=== PATIENT | female | born 1940 | race Caucasian/White ===

== ENCOUNTER 2016-10-18 10:33 | Inpatient (IN) | payer MEDICARE, OTHER ==
[~2016-10-18] VITALS: Ht 152.4 cm; Wt 71.7 kg
[~2016-10-18 10:33] MED LIST: ALB0.5V; ALBU2.5V4 NEB; AMOX500C2 PO; ASP81TEC PO; ATOR10TA66 PO; ATOR80TA PO; ATOR80TA75 PO; ATR20T PO; BUDE10.2 IH; BUDE6HFA IH; CLOP75TA PO; CLOP75TA28 PO; DICL100G20 TOP; DIGO125T PO; DIGO250T PO; DIGO250T15 PO; DRON400T2 PO; FLUT50DI; GLIP5TAB13 PO; LEVO88TA2 PO; LEVO88TA26 PO; MECL25TA56 PO; METF500T4 PO; METF500T8 PO; MMT17NA NS; MONT10TA24 PO; MTF500T PO; MULT-974 PO; OMG1KC PO; PNT40TEC PO; RNT150T PO; SCR1T1 PO; SULF1TAB38 PO; TICA90TA PO; TRAM1TAB7 PO; VIT B COMP PO
[2016-10-18 11:00] VITALS: BP 127/68
[2016-10-18] MEDS: RT-LEVALBUTEROL (XOPENEX) 1.25 MG/3 ML NEB NON-FORMULARY INH SCH ×4 (11:17→22:07)
[2016-10-18] MEDS ORDERED: CATHETER FLUSH 10 ML SYR IV PRN (11:30)
[2016-10-18] MEDS ORDERED: ONDANSETRON 4 MG/2 ML (SDV) Z0FRAN IV PRN (11:30)
[2016-10-18] MEDS: NS IV 1000 ML 1,000 ML IV SCH (11:44)
[2016-10-18] MEDS: SUCRALFATE 1 GM (CARAFATE) TAB PO SCH ×3 (11:44→20:37)
[2016-10-18] MEDS: PANTOPRAZOLE 40 MG/10 ML (PROTONIX) VIAL IV SCH ×2 (11:44→20:37)
[2016-10-18] MEDS: LORazepam INJ 2 MG/ML (ATIVAN) VIAL IV SCH ×2 (11:45→19:52)
[2016-10-18 11:55] LABS: BASOPHILS # (AUTO) 0.1 10^3/uL (0.0-0.1); BASOPHILS % (AUTO) 1 % (0-10); EOSINOPHILS # (AUTO) 0.2 10^3/uL (0.0-0.3); EOSINOPHILS % (AUTO) 1 % (0-10); LYMPHOCYTES # (AUTO) 1.6 X 10^3 (1.0-4.0); LYMPHOCYTES % (AUTO) 16 % (12-44); MEAN CORPUSCULAR HEMOGLOBIN 27 PG (25-34); MEAN CORPUSCULAR HGB CONC 32 G/DL (32-36); MEAN CORPUSCULAR VOLUME 83 FL (80-99); MEAN PLATELET VOLUME 10.3 FL (7.4-10.4); MONOCYTES % (AUTO) 9 % (0-12); NEUTROPHILS # (AUTO) 7.7 X 10^3 (1.8-7.8); NEUTROPHILS % (AUTO) 74 % (42-75); PLATELET COUNT 327 10^3/uL (130-400); RED BLOOD COUNT 5.31 10^6/uL (4.35-5.85); RED CELL DISTRIBUTION WIDTH 16.2 % (10.0-14.5); WHITE BLOOD COUNT 10.5 10^3/uL (4.3-11.0)
[2016-10-18] MEDS ORDERED: methylPREDNISolone 125 MG (Solu-MEDROL) VIAL IVP SCH (12:10)
[2016-10-18 12:15] LABS: ALANINE AMINOTRANSFERASE 18 U/L (0-55); ALBUMIN 3.9 G/DL (3.2-4.5); ANION GAP 10 MMOL/L (5-14); ASPARTATE AMINO TRANSFERASE 18 U/L (5-34); BILIRUBIN,TOTAL 0.6 MG/DL (0.1-1.0); BLOOD UREA NITROGEN 15 MG/DL (7-18); BUN/CREATININE RATIO 21; CALCIUM 9.4 MG/DL (8.5-10.1); CARBON DIOXIDE 28 MMOL/L (21-32); CHLORIDE 103 MMOL/L (98-107); CREATININE SERUM 0.71 MG/DL (0.60-1.30); GFR ESTIMATED > 60; GLUCOSE 164 MG/DL (70-105); POTASSIUM 4.1 MMOL/L (3.6-5.0); SODIUM 141 MMOL/L (135-145); TOTAL PROTEIN 6.6 G/DL (6.4-8.2)
[2016-10-18] MEDS ORDERED: SITA1TBM7 PO (12:21)
[2016-10-18 12:34] LABS: THYROID STIMULATING HORMONE 0.84 UIU/ML (0.35-4.94)
[2016-10-18] MEDS ORDERED: RT-ALBUINH INH (12:40)
[2016-10-18] MEDS ORDERED: FLUT1AER INH (12:40)
[2016-10-18] MEDS ORDERED: OMG1KC PO (12:40)
--- NOTE | 2016-10-18 12:46 | Diagnostic Imaging Report ---
INDICATION: Shortness of air. COMPARISON: 10/19/2015 FINDINGS: Frontal and lateral views of the chest demonstrate normal heart size and pulmonary vascularity. The lungs are clear. There are no signs of infiltrate, pleural effusions or pneumothoraces. The visualized osseous structures show no acute abnormalities. IMPRESSION: 1. No acute process. No signs of infiltrates, effusions or pneumothoraces. Dictated by: Dictated on workstation # [id number]
[2016-10-18] MEDS ORDERED: MONTELUKAST 10 MG (SINGULAIR) TAB PO PRN (13:30)
[2016-10-18 16:35] VITALS: BP 126/61
[2016-10-18 17:28] VITALS: BP 130/66
--- NOTE | 2016-10-18 17:39 | History & Physicial ---
History of Present Illness History of Present Illness Reason for visit/HPI PT IS A 76 Y/O FEMALE WHO IS WELL KNOWN TO ME FROM CLINIC. SHE WAS ADMITTED TO THE HOSPITAL FROM MY CLINIC A DIRECT ADMISSION. SHE WAS AN ACUTE WORK-IN APPT TODAY WITH COMPLAINT OF ABDOMINAL PAIN, SHORTNESS OF BREATH, AND FEELING LIKE SHE WAS JUST NOT GOING TO BE ABLE TO "KEEP GOING" AND FEELING LIKE SHE WAS JUST GOING TO BE SENT HOME TO . SHE WAS WALKED TO THE RESTROOM AND SHE HAD TO STOP EVERY 10 FEET TO REST BECAUSE SHE WAS NOT ABLE TO CATCH HER BREATH - SHE HAD AN OXYGEN SATURATION CHECKED ON THE WAY BACK TO HER EXAM ROOM AND HER OXYGEN WAS 98% ON ROOM AIR. ON EXAM HERE IN THE HOSPITAL, SHE WAS MORE RELAXED, BUT NOW COMPLAINING OF MORE PAIN IN HER EPIGASTRIUM. Date of Admission Oct 18, 2016 at 10:55 I consulted on this patient on 10/18/16 17:33 Attending Physician Clarice Elaine MD Admitting Physician Clarice Elaine MD Consult SHINE DENIS MD Allergies and Home Medications Allergies Coded Allergies: azithromycin (Verified Allergy, Unknown, 06/23/12) cephalexin (Verified Allergy, Unknown, 04/23/06) levofloxacin (Verified Allergy, Unknown, 06/23/12) meloxicam (Verified Allergy, Unknown, 06/23/12) metoprolol (Verified Allergy, Unknown, NECK SPASMS, 10/18/16) metronidazole (Verified Allergy, Unknown, 06/23/12) morphine (Verified Allergy, Unknown, 04/23/06) theophylline (Verified Allergy, Unknown, 04/23/06) prednisone (Verified Adverse Reaction, Intermediate, STOMACH BLEED, ) norfloxacin (Verified Adverse Reaction, Unknown, GI INTOLERANCE, 09/11/07) trovafloxacin (Verified Adverse Reaction, Unknown, GI INTOLERANCE, 09/11/07) Home Medications Albuterol Sulfate 2.5 Mg/3 Ml Vial.neb, 2.5 MG NEB QID PRN for SHORTNESS OF BREATH, (Reported) Albuterol Sulfate 1 Puff Puff, 2 PUFF INH Q4H PRN for SHORTNESS OF BREATH, ( Reported) Budesonide/Formoterol Fumarate 10.2 Gm Hfa.aer.ad, 2 PUFF IH BID, (Reported) EITHER USES BREO OR SYMBICROT, DOES NOT USE THEM TOGETHER Clopidogrel Bisulfate 75 Mg Tablet, 75 MG PO DAILY, (Reported) Digoxin 250 Mcg Tablet, 250 MCG PO HS, (Reported) Fluticasone/Vilanterol 1 Each Blst.w.dev, 1 PUFF INH DAILY, (Reported) USES EITHER BREO OR SYMBICORT, DOES NOT USE THEM TOGETHER Glipizide 5 Mg Tablet, 2.5 MG PO BID, (Reported) TAKES 1/2 OF A (5 MG) TABLET Levothyroxine Sodium 88 Mcg Tablet, 88 MCG PO DAILY, (Reported) Montelukast Sodium 10 Mg Tablet, 10 MG PO HS PRN for ALLERGIES/ASTHMA, (Reported ) Multivitamin 1 Each Tablet, 1 TAB PO DAILY, (Reported) Dalton 3 Polyunsat Fatty Acids 1,000 Mg Cap, 2,000 MG PO DAILY, (Reported) TAKES 2 (1,000MG) CAPSULES Sitagliptin Phos/Metformin HCl 1 Each Tbmp.24hr, 1 TAB PO DAILY, (Reported) [Liq Vit B Comp] , 1 APPFUL PO DAILY, (Reported) Past Mdwsfhc-Ndvxvy-Dvzdrj Hx Patient Social History Marrital Status: Living Status: LIVES AT HOME WITH SPOUSE Employed/Student: retired Alcohol Use: Denies Use Recreational Drug Use: No Smoking Status: Never a Smoker 2nd Hand Smoke Exposure: No Physical Abuse Screen: No Sexual Abuse: No Recent Foreign Travel: No Contact w/other who traveled: No Recent Hopitalizations: Yes Recent Infectious Disease Expo: No Immunizations Up To Date Date of Pneumonia Vaccine: Mar 14, 2011 Date of Influenza Vaccine: Mar 09, 2015 Seasonal Allergies Seasonal Allergies: Yes Surgeries HX Surgeries: Yes (R Thyroidectomy, Carpal Tunnel, heart stent) Surgeries: Coronary Stent, Orthopedic, Thyroidectomy Respiratory Hx Respiratory Disorders: Yes (asthma) Respiratory Disorders: Asthma Cardiovascular Hx Cardiovascular Disorders: Yes (stents x 3, implanted heart monitor) Cardiac Disorders: Coronary Artery Disease, Deep Vein Thrombosis, High Cholesterol, Hypertension Neurological Hx Neurological Disorders: No Reproductive System : No Hx Reproductive Disorders: No Sexually Transmitted Disease: No HIV/AIDS: No Female Reproductive Disorders: Denies Genitourinary Hx Genitourinary Disorders: No Gastrointestinal Hx Gastrointestinal Disorders: Yes (stomach bleeds) Gastrointestinal Disorders: Gastroesophageal Reflux, Gastrointestinal Bleed, Chronic Diarrhea, Gall Bladder Disease Musculoskeletal Hx Musculoskeletal Disorders: Yes Musculoskeletal Disorders: Arthritis, Rheumatoid Arthritis Endocrine Hx Endocrine Disorders: Yes (right thyroidectomy) Endocrine Disorders: Diabetes, Non-Insulin dep HEENT HX ENT Disorders: Yes HEENT Disorders: Cataract Loss of Vision: Denies Hearing Impairment: Denies Cancer Hx Cancer: No Psychosocial Hx Psychiatric Problems: No Integumentary HX Skin/Integumentary Disorder: No Blood Transfusions Hx Blood Disorders: Yes Adverse Reaction to a Blood Tr: No Reviewed Nursing Assessment Reviewed/Agree w Nursing PMH: Yes Family Medical History Significant Family History: Heart Disease, Hypertension Family Hx: Patient reports no known family medical history. Constitutional: No chills, No fever, malaise, weakness EENTM: throat pain, No hoarseness, No throat swelling Respiratory: cough, dyspnea on exertion, No hemoptysis, orthopnea, No phlegm, short of breath, No stridor, No wheezing Cardiovascular: chest pain (LOWER STERNAL/EPIGASTRIC REGION) Gastrointestinal: abdominal pain (EPIGASTRIUM), No constipation, No diarrhea, No dysphagia, heartburn, No melena, nausea, No vomiting Genitourinary: no symptoms reported : No Musculoskeletal: No back pain, No joint pain, No muscle pain Skin: no symptoms reported, No change in color, No lesions, No rash Psychiatric/Neurological: Anxiety (PT REFUSES TO TAKE ANXIETY MEDICATIONS), Weakness All Other Systems Reviewed Negative Unless Noted: Yes Physical Exam Vital Signs Vital Sign - Last 12Hours 10/18/16 11:00 Temp 98.3 Pulse 69 Resp 22 B/P (MAP) 127/68 Pulse Ox 96 O2 Delivery Room Air Capillary Refill : General Appearance: WD/WN, Mild Distress Eyes: Bilateral Eye EOMI, Bilateral Eye Normal Inspection, Bilateral Eye PERRL HEENT: PERRL/EOMI, Pharynx Normal Neck: Full Range of Motion, Supple Respiratory: Chest Non Tender, Lungs Clear, Normal Breath Sounds, No Accessory Muscle Use, No Respiratory Distress Cardiovascular: Regular Rate, Rhythm, No Edema, Normal Peripheral Pulses Gastrointestinal: Normal Bowel Sounds, No Organomegaly, No Pulsatile Mass, Soft , Tenderness (IN EPIGASTRIUM) Rectal: Deferred Back: No CVA Tenderness Extremity: Normal Capillary Refill, Normal Range of Motion, Non Tender, No Calf Tenderness, No Pedal Edema Neurologic/Psychiatric: Alert, Oriented x3, No Motor/Sensory Deficits, Normal Mood/Affect Skin: Normal Color, Warm/Dry Lymphatic: No Adenopathy Assessment/Plan Assessment and Plan ACUTE DYSPNEA ACUTE ABDOMINAL PAIN IN EPIGASTRIUM HYPERTENSION DIABETES MELLITUS ANXIETY PT ADMITTED TO THE HOSPITAL, STARTED ON STEROID IV, XOPENEX BREATHING TREATMENTS , ATIVAN IV AND LABS DRAWN. LABS ARE NEGATIVE FOR AN ACUTE GI BLEED WITH NORMAL HEMOGLOBIN, WILL CHECK OCCULT STOOLS. ACUTE ABDOMINAL PAIN - HX OF MASSIVE GI BLEED (WILL NOT START ON LOVENOX, BUT WILL PLACE ON SCD'S) - CONSULT PLACED TO DR. DENIS, MONITOR SYMPTOMS, PROTONIX AND CARAFATE INITIATED. MONITOR SYMPTOMS CLOSELY, IF NEEDED WILL CHECK H AND H ACUTELY TONIGHT. HTN - CONTROLLED - NO CHANGE IN MEDICATION AT THIS TIME. AFIB - ON BETA DIONNA - MONITOR HEART RATE, SYMPTOMS CURRENTLY CONTROLLED, LINX DEVICE IN PLACE. - DR. DSOUZA MONITORS. DM - RESTART JANUMET. CHECK FSBS AND ADJUST MEDS NEEDED. ANXIETY - CHRONIC - PT REFUSES TO TAKE MEDICATIONS FOR CONTROL OF SYMPTOMS - CONTINUE WITH ATIVAN IV FOR SYMPTOM CONTROL. Problems: Admission Diagnosis ACUTE DYSPNEA ACUTE ABDOMINAL PAIN IN EPIGASTRIUM HYPERTENSION DIABETES MELLITUS ANXIETY HX OF MASSIVE GI BLEED Clinical Quality Measures DVT/VTE Risk/Contraindication: Risk Factor Score Per Nursin RFS Level Per Nursing on Admit: 4+=Very High Contraindications-Pharm: Other *list below* Contraindications-Mechi: Other *list below* Other: HX OF MASSIVE GI BLEED WITH 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S - PT REFUSES INJECTION CLARICE ELAINE MD Oct 18, 2016 17:39
[2016-10-18] MEDS: RT-ADVAIR HFA 115/21 MCG PER PUFF IH SCH (18:46)
[2016-10-18] MEDS: methylPREDNISolone 125 MG (Solu-MEDROL) VIAL IVP SCH ×2 (18:52→23:17)
[2016-10-18 20:16] VITALS: BP 131/62
[2016-10-18] MEDS: DIGOXIN 0.25 MG (LANOXIN) TAB PO SCH (20:37)
[2016-10-18] MEDS ORDERED: RT-SYMBICORT 160/4.5 MCG INHALER PER PUFF IH SCH (21:00)
[2016-10-19 00:22] VITALS: BP 125/58
[2016-10-19] MEDS: NS IV 1000 ML 1,000 ML IV SCH ×3 (00:50→15:50)
[2016-10-19] MEDS: RT-LEVALBUTEROL (XOPENEX) 1.25 MG/3 ML NEB NON-FORMULARY INH SCH ×5 (02:53→19:27)
[2016-10-19] MEDS: LORazepam INJ 2 MG/ML (ATIVAN) VIAL IV SCH ×3 (03:14→19:20)
[2016-10-19 03:58] VITALS: BP 109/55
[2016-10-19] MEDS: methylPREDNISolone 125 MG (Solu-MEDROL) VIAL IVP SCH ×4 (05:26→23:54)
[2016-10-19] MEDS: SUCRALFATE 1 GM (CARAFATE) TAB PO SCH ×4 (05:30→20:46)
[2016-10-19] MEDS: LEVOTHYROXINE 88 MCG (LEVOTHORID) TAB PO SCH (05:30)
[2016-10-19 06:19] LABS: MEAN PLATELET VOLUME 10.7 FL (7.4-10.4); RED BLOOD COUNT 4.75 10^6/uL (4.35-5.85); RED CELL DISTRIBUTION WIDTH 16.2 % (10.0-14.5); WHITE BLOOD COUNT 7.1 10^3/uL (4.3-11.0)
[2016-10-19] MEDS: metFORMIN XR 500 MG (GLUCOPHAGE XR) TAB PO SCH (06:21)
[2016-10-19] MEDS: sitaGLIPtin 50 MG (JANUVIA) TAB PO SCH (06:21)
[2016-10-19 06:43] LABS: ALANINE AMINOTRANSFERASE 15 U/L (0-55); ALBUMIN 3.6 G/DL (3.2-4.5); ANION GAP 12 MMOL/L (5-14); ASPARTATE AMINO TRANSFERASE 10 U/L (5-34); BILIRUBIN,TOTAL 0.4 MG/DL (0.1-1.0); BLOOD UREA NITROGEN 16 MG/DL (7-18); BUN/CREATININE RATIO 20; CALCIUM 8.6 MG/DL (8.5-10.1); CARBON DIOXIDE 21 MMOL/L (21-32); CHLORIDE 107 MMOL/L (98-107); CREATININE SERUM 0.82 MG/DL (0.60-1.30); GFR ESTIMATED > 60; GLUCOSE 376 MG/DL (70-105); POTASSIUM 4.1 MMOL/L (3.6-5.0); SODIUM 140 MMOL/L (135-145)
[2016-10-19] MEDS: RT-ADVAIR HFA 115/21 MCG PER PUFF IH SCH ×2 (06:43→19:27)
[2016-10-19 08:00] VITALS: BP 134/61
[2016-10-19] MEDS: PANTOPRAZOLE 40 MG/10 ML (PROTONIX) VIAL IV SCH ×2 (08:58→20:46)
[2016-10-19] MEDS: CLOPIDOGREL 75 MG (PLAVIX) TABLET PO SCH (09:00)
--- NOTE | 2016-10-19 09:33 | Progress Note (SOAP) ---
Objective Exam Vital Signs Date Time Temp Pulse Resp B/P (MAP) Pulse Ox O2 Delivery O2 Flow Rate FiO2 10/19/16 08:00 96.7 74 24 134/61 96 Room Air 10/19/16 06:43 93 10/19/16 06:42 93 10/19/16 03:58 98.2 69 12 109/55 95 Room Air 10/19/16 02:53 94 10/19/16 01:00 76 10/19/16 00:22 97.0 77 18 125/58 96 Room Air 10/18/16 22:08 96 10/18/16 21:00 Room Air 10/18/16 20:16 97.0 67 22 131/62 95 Room Air 10/18/16 19:00 63 10/18/16 18:55 95 10/18/16 18:47 94 10/18/16 17:28 97.3 67 20 130/66 95 Room Air 10/18/16 16:35 98.0 76 24 126/61 94 Room Air 10/18/16 15:17 94 10/18/16 12:51 63 10/18/16 11:00 98.3 69 22 127/68 96 Room Air I & O 10/19/16 07:00 Intake Total 1730 ml Output Total 750 ml Balance 980 ml Capillary Refill : Results Lab Laboratory Tests 10/18/16 11:45: White Blood Count 10.5, Red Blood Count 5.31, Hemoglobin 14.1, Hematocrit 44, Mean Corpuscular Volume 83, Mean Corpuscular Hemoglobin 27, Mean Corpuscular Hemoglobin Concent 32, Red Cell Distribution Width 16.2H, Platelet Count 327, Mean Platelet Volume 10.3, Neutrophils (%) (Auto) 74, Lymphocytes (%) (Auto) 16 , Monocytes (%) (Auto) 9, Eosinophils (%) (Auto) 1, Basophils (%) (Auto) 1, Neutrophils # (Auto) 7.7, Lymphocytes # (Auto) 1.6, Monocytes # (Auto) 1.0, Eosinophils # (Auto) 0.2, Basophils # (Auto) 0.1, Sodium Level 141, Potassium Level 4.1, Chloride Level 103, Carbon Dioxide Level 28, Anion Gap 10, Blood Urea Nitrogen 15, Creatinine 0.71, Estimat Glomerular Filtration Rate > 60, BUN/ Creatinine Ratio 21, Glucose Level 164H, Calcium Level 9.4, Total Bilirubin 0.6 , Aspartate Amino Transf (AST/SGOT) 18, Alanine Aminotransferase (ALT/SGPT) 18, Alkaline Phosphatase 71, Troponin I < 0.30, Total Protein 6.6, Albumin 3.9, Thyroid Stimulating Hormone (TSH) 0.84, Digoxin Level 1.12 10/18/16 17:11: Troponin I < 0.30 10/19/16 04:54: White Blood Count 7.1, Red Blood Count 4.75, Hemoglobin 12.8, Hematocrit 40, Mean Corpuscular Volume 84, Mean Corpuscular Hemoglobin 27, Mean Corpuscular Hemoglobin Concent 32, Red Cell Distribution Width 16.2H, Platelet Count 292, Mean Platelet Volume 10.7H, Sodium Level 140, Potassium Level 4.1, Chloride Level 107, Carbon Dioxide Level 21, Anion Gap 12, Blood Urea Nitrogen 16, Creatinine 0.82, Estimat Glomerular Filtration Rate > 60, BUN/Creatinine Ratio 20, Glucose Level 376H, Calcium Level 8.6, Total Bilirubin 0.4, Aspartate Amino Transf (AST/SGOT) 10, Alanine Aminotransferase (ALT/SGPT) 15, Alkaline Phosphatase 62, Total Protein 6.0L, Albumin 3.6 Clinical Quality Measures DVT/VTE Risk/Contraindication: Risk Factor Score Per Nursin RFS Level Per Nursing on Admit: 4+=Very High Contraindications-Pharm: Other *list below* Contraindications-Mechi: Other *list below* Other: HX OF MASSIVE GI BLEED WITH 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S - PT REFUSES INJECTION JUAN FRANCISCO VEGA MD Oct 19, 2016 09:33
--- NOTE | 2016-10-19 09:52 | CONSULTATION REPORT ---
DATE OF ADMISSION: 10/18/2016 DATE OF CONSULTATION: 10/18/2016 ATTENDING PHYSICIAN: Dr. Elaine Ms. Thalia Tadeo is a 76-year-old female known to us. We had seen her for epigastric pain, as well as dark tarry stools in September of 2011. Before this, she had undergone a cardiac catheterization, as well as a stent placement and was placed on Plavix. An EGD was performed, which did show reflux esophagitis, class B, small hiatal hernia, approximately 2 cm in size, as well as mild gastritis. There were no formal ulcers, polyps or any active bleeding sources identified. She was then treated medically. Over time, she states that she has had some intermittent episodes of symptoms related to peptic ulcer disease, as well as gastroesophageal reflux disease. In the past year she reports that the reflux symptoms have worsened and she also has had episodes of regurgitation usually at night and that this would also lead to chronic cough. She also has a history of asthma and these episodes would exacerbate her asthma as well. She states that she has crampy substernal chest pressure as well as epigastric pain which may linger for a certain amount of time and then resolve on its own. She does report some mild nausea, however, no vomiting as well as no coffee-ground emesis. She states that her last colonoscopy was approximately 12 years ago, but she feels that that was normal. She does not report any lower gastrointestinal symptoms at this time. She also does have a history of atrial fibrillation and is currently on Plavix. PAST MEDICAL HISTORY: 1. Asthma. 2. Arthritis. 3. Allergic rhinitis. 4. Diabetes. 5. Coronary artery disease. 6. Hypothyroid. 7. History of DVT and pulmonary embolism/ 8. Degenerative joint disease. PAST SURGERIES: 1. Open hysterectomy in 1975. 2. Right carpal tunnel release 1978. 3. Open cholecystectomy 1984. 4. Nasal sinus polyp removal 1987. 5. Right foot surgery 1991. 6. Right total thyroidectomy 2006. 7. Left total knee arthroplasty 2007. 8. Cardiac catheterization and stent placement 2011. ALLERGIES: 1. THEOPHYLLINE. 2. PREDNISONE. 3. NORFLOXACIN. 4. CEPHALEXIN. 5. TROVAN. 6. LEVAQUIN. 7. METRONIDAZOLE. 8. MELOXICAM. 9. MORPHINE. 10. AZITHROMYCIN. MEDICATIONS: 1. Albuterol breathing treatments p.r.n. 2. Albuterol MDI 1 puff q.4 hours p.r.n. 3. Symbicort 160/4.5 mcg b.i.d. 4. Plavix 75 mg daily. 5. Digoxin 250 mcg daily. 6. Breo Ellipta 100/125 mcg daily. 7. Glipizide 5 mg daily. 8. Levothyroxine 88 mcg daily. 9. Montelukast 10 mg daily. 10. Rindge-3 fatty acid 1000 mg daily. 11. Janumet 100/1000 milligrams daily. SOCIAL HISTORY: Negative smoke. Negative alcohol. FAMILY HISTORY: Son with esophageal dysmotility. VITAL SIGNS: Temperature 97, blood pressure 131/92, pulse 67, respirations 22, pulse oximetry 95% on room air. REVIEW OF SYSTEMS: This is a well-nourished female currently in no acute distress. She is not experiencing any shortness of breath or difficulty breathing. No chest pain, palpitations, diaphoresis. Intermittent episodes of epigastric, crampy pain with radiation towards the back with associated nausea. No vomiting. She also has regurgitation at night, which induces a cough. No diarrhea, constipation. No red blood per rectum. No dark tarry stools. No fever, chills, no recent inadvertent weight loss. PHYSICAL EXAMINATION: CHEST: Few scattered rales and expiratory wheezes bilaterally. HEART: Regular. EXTREMITIES: No lower extremity edema. Negative Homans sign. HEENT: No scleral icterus. No cervical lymphadenopathy. ABDOMEN: Soft, nondistended. There is pain in the epigastric region upon palpation with voluntary guarding. No rebound. LABS: WBC 10.5, hemoglobin 14.1, hematocrit 44, platelets 327, BUN 15, creatinine 0.71, liver function enzymes are normal. ASSESSMENT AND PLAN: 76-year-old female with symptomatic peptic ulcer disease, reflux esophagitis, as well as hiatal hernia. Due to her worsening symptomatology we will proceed with an EGD as well as biopsies as appropriate. Hopefully the majority of these issues can be treated with medical management with oral proton pump inhibitors as well as Carafate as needed, as well as the necessary lifestyle and diet accommodation including smaller, more frequent meals, avoidance of eating at night, as well as head elevation while laying supine. She also needs to avoid caffeinated beverages, spicy, greasy and acidic foods. We will also proceed with an EGD, as well as biopsies on this admission. If she does have a worsening hiatal hernia, as well as continued symptoms despite maximal medical therapy, there still is a potential for possible hiatal hernia repair, as well as antireflux procedure; however, she does have a significant risk factors including coronary artery disease, atrial fibrillation, as well as asthma. In this scenario she would have to be medically optimized in the best possible condition before entertaining the thought of proceeding with this procedure. Before this, she was also need an esophageal manometry study to rule out an esophageal dysmotility study. For now we will schedule her for an EGD and continue with medical management. Job ID: [id number] Dictated Date: 10/18/2016 21:06:00 Bee Raiser Date: 10/19/2016 09:34:17/ankush
--- NOTE | 2016-10-19 10:26 | Progress Note-Pre Operative ---
Pre-Operative Progress Note H&P Reviewed The H&P was reviewed, patient examined and no changes noted. Date H&P Reviewed: Oct 19, 2016 Time H&P Reviewed: 10:20 Pre-Operative Diagnosis: GERD, PUD FRENCH DENIS MD Oct 19, 2016 10:26 am
--- NOTE | 2016-10-19 10:26 | Conscious Sedation/ASA ---
Conscious Sedation Pre-Proced Time Reviewed: 10:20 ASA Class: 3 Airway Mallampati Classification: ([place] appropriate class) I. II. III, IV Lungs Heart ASA score ASA 1: a normal healthy patient ASA 2: a patient with a mild systemic disease (mid diabetes, controlled hypertension, obesity ASA 3: a patient with a severe systemic disease that limits activity (angina , COPD, prior Myocardial infarction) ASA 4: a patient with an incapacitating disease that is a constant threat to life (CHF, renal failure) ASA 5: a moribund patient not expected to survive 24 hrs. (ruptured aneurysm) ASA 6: a declared brain patient whose organs are being harvested. For emergent operations, add the letter E after the classification Grade 2 Sedation Plan: Analgesia, Amnesia, Plan communicated to team members, Discussed options with patient/fam, Discussed risks with patient/fam Note The patient is an appropriate candidate to undergo the planned procedure, sedation, and anesthesia. The patient immediately re-assessed prior to indication. FRENCH DENIS MD Oct 19, 2016 10:26 am
[2016-10-19] MEDS ORDERED: fentaNYL INJECTION 100 MCG/2 ML AMP ONE (10:41)
[2016-10-19] MEDS ORDERED: MIDAZOLAM 2 MG/2 ML (VERSED) VIAL ONE ×3 (10:41)
[2016-10-19] MEDS ORDERED: LIDOCAINE JELLY 2% (XYLOCAINE) 5 ML TUBE ONE (10:42)
[2016-10-19] MEDS ORDERED: HURRICAINE EXT TUBE (BENZOCAINE) ONE (10:42)
[2016-10-19] MEDS ORDERED: NS IV 500 ML 500 ML ONE (10:44)
[2016-10-19] MEDS ORDERED: NS IV 500 ML 500 ML IV PRN (10:45)
[2016-10-19] MEDS: MIDAZOLAM 2 MG/2 ML (VERSED) VIAL IVP PRN ×3 (10:45→10:51)
[2016-10-19] MEDS: fentaNYL INJECTION 100 MCG/2 ML AMP IVP PRN ×2 (10:46→10:49)
--- NOTE | 2016-10-19 11:28 | Progress Note-Post Operative ---
Post-Operative Progess Note Surgeon (s)/Executive Manager (s) Surgeon FRENCH DENIS MD Executive Manager: none Pre-Operative Diagnosis GERD, PUD Post-Operative Diagnosis reflux esophagitis(class B), small HH(2cm), moderate severe gastritis antrum, mild-moderate duodenitis. Post-Op Procedure Note Date of Procedure: Oct 19, 2016 Name of Procedure Performed: EGD with bx. Description of the Procedure: EGD with bx. Findings of the Procedure . Anesthesia Type CS Estimated blood loss (mL): minimal Specimen(s) collected/removed duodenum, antrum, GE jxn FRENCH DENIS MD Oct 19, 2016 11:28 am
[2016-10-19] MEDS ORDERED: LIDOCAINE JELLY 2% (XYLOCAINE) 5 ML TUBE MM PRN (11:30)
[2016-10-19] MEDS ORDERED: HURRICAINE EXT TUBE (BENZOCAINE) XX PRN (11:30)
[2016-10-19] MEDS ORDERED: FLUMAZENIL (ROMAZICON) 0.1 MG/ML 5 ML VIAL INJ PRN (11:30)
[2016-10-19] MEDS ORDERED: NALOXONE 0.4 MG/ML 1 ML (NARCAN) VIAL IVP PRN (11:30)
[2016-10-19 12:00] VITALS: BP 132/60
[2016-10-19 16:09] VITALS: BP 119/56
[2016-10-19 20:00] VITALS: BP 134/62
[2016-10-19] MEDS: DIGOXIN 0.25 MG (LANOXIN) TAB PO SCH (20:46)
[2016-10-20 00:19] VITALS: BP 136/64
[2016-10-20] MEDS: RT-LEVALBUTEROL (XOPENEX) 1.25 MG/3 ML NEB NON-FORMULARY INH SCH ×2 (02:45→09:38)
[2016-10-20] MEDS: LORazepam INJ 2 MG/ML (ATIVAN) VIAL IV SCH ×2 (03:23→11:20)
[2016-10-20 04:02] VITALS: BP 133/62
[2016-10-20] MEDS: NS IV 1000 ML 1,000 ML IV SCH (05:21)
[2016-10-20] MEDS: methylPREDNISolone 125 MG (Solu-MEDROL) VIAL IVP SCH (06:15)
[2016-10-20] MEDS: sitaGLIPtin 50 MG (JANUVIA) TAB PO SCH (06:15)
[2016-10-20] MEDS: metFORMIN XR 500 MG (GLUCOPHAGE XR) TAB PO SCH (06:15)
[2016-10-20] MEDS: LEVOTHYROXINE 88 MCG (LEVOTHORID) TAB PO SCH (06:15)
[2016-10-20] MEDS: SUCRALFATE 1 GM (CARAFATE) TAB PO SCH ×2 (06:16→11:39)
[2016-10-20 08:00] VITALS: BP_SYST 124; BP_SYST 133; BP_DIAS 62
--- NOTE | 2016-10-20 08:57 | OPERATIVE REPORT ---
PROCEDURE PHYSICIAN: FRENCH DENIS DATE OF ADMISSION: 10/18/2016 DATE OF PROCEDURE: 10/19/2016 ATTENDING PRIMARY CARE PHYSICIAN: Dr. Clarice Elaine. PREOPERATIVE DIAGNOSIS: 1. Gastroesophageal reflux disease. 2. Peptic ulcer disease. POSTOPERATIVE DIAGNOSES: 1. Reflux esophagitis, class B. 2. Small hiatal hernia, approximately 2 cm in size 3. Moderate severity gastritis with prepyloric superficial erosions. 4. Mild to moderate duodenitis. PROCEDURE: EGD with biopsy. SURGEON: Dr. Denis. ANESTHESIA: Conscious sedation. ESTIMATED BLOOD LOSS: Minimal. FINDINGS: 1. Reflux esophagitis, class B. 2. No ulcers or strictures. 3. Small hiatal hernia, approximately 2 cm in size. 4. Moderate severity gastritis with superficial erosions in the prepyloric region however, no formal ulcers, polyps or any neoplasms. 5. Mild to moderate duodenitis. DISPOSITION: The patient tolerated procedure well. Ms. Thalia Tadeo is a 76-year-old female with a history of gastroesophageal reflux disease, as well as peptic ulcer disease. She has had a history of epigastric pain as well as coronary artery disease. In 2011 she underwent cardiac catheterization with stent placement and was placed on aspirin and Plavix had did developed dark tarry stools. She underwent an EGD at that time and was found to have a moderate gastritis, as well as a reflux esophagitis and a small hiatal hernia. She states that she has been taking an acid tuna purse seiner only on a p.r.n. basis. She reports that the past few days she has had worsening pain in the epigastric region which is described as of substernal and crampy in nature. She also does have risk factors including taking a significant amount of caffeine in. She does not report any nausea nor vomiting, as well as no hematemesis and does not report any issues of any dark tarry stools. The patient was brought to the endoscopy suite, laid in left lateral decubitus position with the head slightly elevated. After adequate IV pain and sedative medications and conscious sedation anesthesia, the mouthpiece was applied. The endoscope was then placed in the mouth, visualizing the pharynx and hypopharyngeal region. Vocal cords, epiglottis and vallecula identified and appeared to be normal. The endoscope was then gently intubated into the esophageal opening and the esophagus insufflated. The endoscope was advanced through the first, second, and 3rd portions esophagus. At the level of the GE junction, a reflux esophagitis, class B identified. There were no ulcers or strictures identified in this region. A biopsy was taken with forceps and electrocautery with visualization of good hemostasis. The endoscope was then easily advanced into the stomach and endoscope retroflexed visualizing again a small hiatal hernia, approximately 2 cm in size. There was a moderate severity gastritis. However, this was more severe in the prepyloric region. There is also some superficial erosions identified in this region however, no formal ulcers. A biopsy was taken of this area using forceps and cautery with visualization of good hemostasis. The endoscope was then advanced through the pylorus and the first and second portion of the duodenum. A mild to moderate duodenitis was also identified. This may indicate an hypersecretion versus some form of food allergy including lactose intolerance. A biopsy was taken of the duodenum with forceps and electrocautery as well. The endoscope was then slowly withdrawn while taking a second look and suctioning of residual air with no additional findings. The patient tolerated procedure well. We will have her undergo the necessary lifestyle and diet accommodation including smaller, more frequent meals, avoidance of eating at night, as well as head elevation while lying supine. She also needs to avoid caffeinated beverages, spicy, greasy and acidic foods. We feel that she needs to be on a PPI acid tuna purse seiner on a daily basis even when asymptomatic. We will start her on Protonix 40 mg daily, as well as Carafate 1 gram q.i.d. for the next 2 weeks on a p.r.n. basis. Potential for esophageal spasms also is a potential. We will proceed with a trial of Levsin on a p.r.n. basis. If he is continuing signs or symptoms of an esophageal dysmotility order, we will then proceed with an esophageal motility study. Job ID: [id number] Dictated Date: 10/19/2016 11:24:36 Per Diem Interpreter Date: 10/20/2016 08:46:15 / ankush
[2016-10-20] MEDS: CLOPIDOGREL 75 MG (PLAVIX) TABLET PO SCH (09:24)
[2016-10-20] MEDS: PANTOPRAZOLE 40 MG/10 ML (PROTONIX) VIAL IV SCH (09:24)
[2016-10-20] MEDS: RT-ADVAIR HFA 115/21 MCG PER PUFF IH SCH (09:38)
[2016-10-20] MEDS ORDERED: PANT40TA2 PO (10:17)
[2016-10-20] MEDS ORDERED: ALPR0.25 PO (10:17)
[2016-10-20] MEDS ORDERED: SUCR1TAB PO (10:17)
--- NOTE | 2016-10-20 10:19 | Discharge Inst-Complex ---
PDI Med Rec & Follow Up Appt. New Medications: Alprazolam (Xanax) 0.25 Mg Tablet 0.25 MG PO TID, #90 TAB 2 Refills Pantoprazole Sodium (Protonix) 40 Mg Tablet.dr 40 MG PO DAILY for 90 Days, #90 TAB 3 Refills Sucralfate (Sucralfate) 1 Gm Tablet 1 GM PO ACHS for 30 Days, #120 TAB 6 Refills TAKE A SLURRY - ALLOW MEDICATION TO DISSOLVE IN 10ML OF WATER PRIOR TO TAKING Continued Medications: Albuterol Sulfate (Albuterol Sulfate) 2.5 Mg/3 Ml Vial.neb 2.5 MG NEB QID PRN for SHORTNESS OF BREATH, EA Albuterol Sulfate (Proair Hfa) 1 Puff Puff 2 PUFF INH Q4H PRN for SHORTNESS OF BREATH, EA Budesonide/Formoterol Fumarate (Symbicort 160-4.5 Mcg Inhaler) 10.2 Gm Hfa.aer.ad 2 PUFF IH BID, EA EITHER USES BREO OR SYMBICROT, DOES NOT USE THEM TOGETHER Clopidogrel Bisulfate (Clopidogrel) 75 Mg Tablet 75 MG PO DAILY, TAB Digoxin (Digoxin) 250 Mcg Tablet 250 MCG PO HS, TAB Fluticasone/Vilanterol (Breo Ellipta 100-25 Mcg INH) 1 Each Blst.w.dev 1 PUFF INH DAILY, INHALER USES EITHER BREO OR SYMBICORT, DOES NOT USE THEM TOGETHER Glipizide (Glipizide) 5 Mg Tablet 2.5 MG PO BID, TAB TAKES 1/2 OF A (5 MG) TABLET Levothyroxine Sodium (Synthroid) 88 Mcg Tablet 88 MCG PO DAILY, TAB Montelukast Sodium (Montelukast Sodium) 10 Mg Tablet 10 MG PO HS PRN for ALLERGIES/ASTHMA, TAB Multivitamin (Multi Vitamin Daily) 1 Each Tablet 1 TAB PO DAILY, TAB [place] 3 Polyunsat Fatty Acids (Fish Oil 1,000 mg Capsule) 1,000 Mg Cap 2000 MG PO DAILY, CAP TAKES 2 (1,000MG) CAPSULES Sitagliptin Phos/Metformin HCl (Janumet Xr 100-1,000 mg Tablet) 1 Each Tbmp.24hr 1 TAB PO DAILY, TAB [Liq Vit B Comp] () 1 APPFUL PO DAILY Prescription: Transmitted to Pharmacy Activity, Diet and PDI Resume Normal Activity: Yes Discharge Diet: Eat Small Frequent Meals Diet for 24 Hours: No [place] Foods, No Spicy Foods Drink 6-8 Glasses of Fluid/Day: Yes Driving Instructions: No Driving for 24 Hours Symptoms to Reoprt to DrMilo: Appetite Changes, Pain Increased For Problems or Questions: Contact Your Physician, Go to Emergency Room JUAN FRANCISCO VEGA MD Oct 20, 2016 10:19
--- NOTE | 2016-10-20 10:22 | Discharge Summary ---
Diagnosis/Chief Complaint Date of Admission Oct 18, 2016 at 10:55 Date of Discharge Discharge Date: Oct 20, 2016 Discharge Time: 1030 Admission Diagnosis Admission Diagnosis ACUTE DYSPNEA ACUTE ABDOMINAL PAIN IN EPIGASTRIUM HYPERTENSION DIABETES MELLITUS ANXIETY HX OF MASSIVE GI BLEED Discharge Diagnosis ACUTE DYSPNEA ACUTE ABDOMINAL PAIN IN EPIGASTRIUM HYPERTENSION DIABETES MELLITUS ANXIETY HX OF MASSIVE GI BLEED REFLUX ESOPHAGITIS HIATAL HERNIA MODERATE GASTRITIS WITH SUPERFICIAL PREPYLORIC EROSIONS DUODENITIS - MODERATE Reason Hospital Visit PT IS A 76 Y/O FEMALE WHO IS WELL KNOWN TO ME FROM CLINIC. SHE WAS ADMITTED TO THE HOSPITAL FROM MY CLINIC A DIRECT ADMISSION. SHE WAS AN ACUTE WORK-IN APPT TODAY WITH COMPLAINT OF ABDOMINAL PAIN, SHORTNESS OF BREATH, AND FEELING LIKE SHE WAS JUST NOT GOING TO BE ABLE TO "KEEP GOING" AND FEELING LIKE SHE WAS JUST GOING TO BE SENT HOME TO . SHE WAS WALKED TO THE RESTROOM AND SHE HAD TO STOP EVERY 10 FEET TO REST BECAUSE SHE WAS NOT ABLE TO CATCH HER BREATH - SHE HAD AN OXYGEN SATURATION CHECKED ON THE WAY BACK TO HER EXAM ROOM AND HER OXYGEN WAS 98% ON ROOM AIR. ON EXAM HERE IN THE HOSPITAL, SHE WAS MORE RELAXED, BUT NOW COMPLAINING OF MORE PAIN IN HER EPIGASTRIUM. Discharge Summary Discharge Physical Examination Allergies: Coded Allergies: azithromycin (Verified Allergy, Unknown, 06/23/12) cephalexin (Verified Allergy, Unknown, 04/23/06) levofloxacin (Verified Allergy, Unknown, 06/23/12) meloxicam (Verified Allergy, Unknown, 06/23/12) metoprolol (Verified Allergy, Unknown, NECK SPASMS, 10/18/16) metronidazole (Verified Allergy, Unknown, 06/23/12) morphine (Verified Allergy, Unknown, 04/23/06) theophylline (Verified Allergy, Unknown, 04/23/06) prednisone (Verified Adverse Reaction, Intermediate, STOMACH BLEED, ) norfloxacin (Verified Adverse Reaction, Unknown, GI INTOLERANCE, 09/11/07) trovafloxacin (Verified Adverse Reaction, Unknown, GI INTOLERANCE, 09/11/07) Vitals & I&Os General Appearance: Alert, Oriented X3, Cooperative HEENT: Atraumatic, PERRLA Respiratory: Clear to Auscultation, Normal Air Movement Cardiovascular: Regular Rate Abdominal: Normal Bowel Sounds, Soft, No Tenderness Extremities: No Clubbing, No Cyanosis Skin: No Rashes, No Breakdown Neuro: Normal Gait, Normal Speech, Strength at 5/5 X4 Ext, Cranial Nerves 3-12 NL Psych/Mental Status: Mental Status NL, Mood NL Hospital Course ACUTE DYSPNEA ACUTE ABDOMINAL PAIN IN EPIGASTRIUM HYPERTENSION DIABETES MELLITUS ANXIETY PT ADMITTED TO THE HOSPITAL, STARTED ON STEROID IV, XOPENEX BREATHING TREATMENTS , ATIVAN IV AND LABS DRAWN. LABS ARE NEGATIVE FOR AN ACUTE GI BLEED WITH NORMAL HEMOGLOBIN, WILL CHECK OCCULT STOOLS. ACUTE ABDOMINAL PAIN - HX OF MASSIVE GI BLEED (WILL NOT START ON LOVENOX, BUT WILL PLACE ON SCD'S) - CONSULT PLACED TO DR. DENIS, MONITOR SYMPTOMS, PROTONIX AND CARAFATE INITIATED. MONITOR SYMPTOMS CLOSELY, IF NEEDED WILL CHECK H AND H ACUTELY TONIGHT. HTN - CONTROLLED - NO CHANGE IN MEDICATION AT THIS TIME. AFIB - ON BETA DIONNA - MONITOR HEART RATE, SYMPTOMS CURRENTLY CONTROLLED, LINX DEVICE IN PLACE. - DR. DSOUZA MONITORS. DM - RESTART JANUMET. CHECK FSBS AND ADJUST MEDS NEEDED. ANXIETY - CHRONIC - PT REFUSES TO TAKE MEDICATIONS FOR CONTROL OF SYMPTOMS - CONTINUE WITH ATIVAN IV FOR SYMPTOM CONTROL. SURGICAL REPORT FOLLOWS: POSTOPERATIVE DIAGNOSES: 1. Reflux esophagitis, class B. 2. Small hiatal hernia, approximately 2 cm in size 3. Moderate severity gastritis with prepyloric superficial erosions. 4. Mild to moderate duodenitis. Discharge Condition at discharge IMPROVED Instructions to patient/family Please see electonic discharge instructions given to patient. Discharge Medications Reviewed and agree with Discharge Medication list on patient's Discharge Instruction sheet Clinical Quality Measures DVT/VTE Risk/Contraindication: Risk Factor Score Per Nursin RFS Level Per Nursing on Admit: 4+=Very High Contraindications-Pharm: Other *list below* Contraindications-Mechi: Other *list below* Other: HX OF MASSIVE GI BLEED WITH 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S - PT REFUSES INJECTION JUAN FRANCISCO VEGA MD Oct 20, 2016 10:22
[2016-10-20] MEDS ORDERED: HYOS0.1281 PO (11:12)
[2016-10-20 11:45] VITALS: BP 128/88
== END 2016-10-20 11:45 | disposition home or self-care (01) | DRG 392 ==
LOC: 4TH 10:55 → ENPENDDIS 10-20 10:30
PROVIDERS: ADMIT Family Medicine; ATTEND Family Medicine
PROC: 0DB78ZX Excision of Stomach, Pylorus, Via Natural or Artificial Opening Endoscopic, Diagnostic (ICD-10-PCS; 2016-10-19)
PROC: 0DB98ZX Excision of Duodenum, Via Natural or Artificial Opening Endoscopic, Diagnostic (ICD-10-PCS; 2016-10-19)
PROC: 0DB48ZX Excision of Esophagogastric Junction, Via Natural or Artificial Opening Endoscopic, Diagnostic (ICD-10-PCS; principal; 2016-10-19 10:45)
DX: K21.0 Gastro-esophageal reflux disease with esophagitis (principal); R06.00 Dyspnea, unspecified; J45.909 Unspecified asthma, uncomplicated; J30.2 Other seasonal allergic rhinitis; K29.70 Gastritis, unspecified, without bleeding; I48.91 Unspecified atrial fibrillation; I25.10 Atherosclerotic heart disease of native coronary artery without angina pectoris; K29.80 Duodenitis without bleeding; I10 Essential (primary) hypertension; E11.9 Type 2 diabetes mellitus without complications; K44.9 Diaphragmatic hernia without obstruction or gangrene; F41.9 Anxiety disorder, unspecified; M06.9 Rheumatoid arthritis, unspecified; M19.91 Primary osteoarthritis, unspecified site; E78.00 Pure hypercholesterolemia, unspecified; E89.0 Postprocedural hypothyroidism; Z95.5 Presence of coronary angioplasty implant and graft; Z79.84 Long term (current) use of oral hypoglycemic drugs; Z86.711 Personal history of pulmonary embolism; Z86.718 Personal history of other venous thrombosis and embolism
CPT/HCPCS: 36415; 71020; 80053; 80162; 84443; 84484; 85025; 85027; 88305; 93005; 94640; 94664; 94760

== ENCOUNTER 2017-06-01 01:47 | Emergency (ER) | payer MEDICARE, OTHER ==
[~2017-06-01] VITALS: Ht 154.9 cm; Wt 68.9 kg
[~2017-06-01 01:47] MED LIST changes: +ALPR0.25 PO; +CYCL5TAB PO; +FLUT1AER INH; +HYOS0.1281 PO; +PANT40TA2 PO; +RT-ALBUINH INH; +SITA1TBM7 PO; +SUCR1TAB PO
[2017-06-01] MEDS ORDERED: NS IV 500 ML 500 ML IV ONE (01:57)
[2017-06-01 02:02] LABS: BASOPHILS # (AUTO) 0.1 10^3/uL (0.0-0.1); BASOPHILS % (AUTO) 1 % (0-10); EOSINOPHILS # (AUTO) 0.5 10^3/uL (0.0-0.3); EOSINOPHILS % (AUTO) 5 % (0-10); LYMPHOCYTES # (AUTO) 1.7 X 10^3 (1.0-4.0); LYMPHOCYTES % (AUTO) 15 % (12-44); MEAN CORPUSCULAR HEMOGLOBIN 27 PG (25-34); MEAN CORPUSCULAR HGB CONC 32 G/DL (32-36); MEAN CORPUSCULAR VOLUME 84 FL (80-99); MEAN PLATELET VOLUME 10.4 FL (7.4-10.4); MONOCYTES # (AUTO) 0.9 X 10^3 (0.0-1.0); MONOCYTES % (AUTO) 8 % (0-12); NEUTROPHILS % (AUTO) 72 % (42-75); PLATELET COUNT 376 10^3/uL (130-400); RED BLOOD COUNT 4.91 10^6/uL (4.35-5.85); RED CELL DISTRIBUTION WIDTH 15.7 % (10.0-14.5); WHITE BLOOD COUNT 11.2 10^3/uL (4.3-11.0)
[2017-06-01 02:17] LABS: BILIRUBIN,URINE NEGATIVE (NEGATIVE); KETONES,URINE NEGATIVE (NEGATIVE); LEUKOCYTE ESTERASE ,URINE NEGATIVE (NEGATIVE); NITRITE,URINE NEGATIVE (NEGATIVE); PH,URINE 5 (5-9); PROTEIN,URINE NEGATIVE (NEGATIVE); UROBILINOGEN,URINE NORMAL (NORMAL)
[2017-06-01 02:20] LABS: ALANINE AMINOTRANSFERASE 17 U/L (0-55); ANION GAP 15 MMOL/L (5-14); ASPARTATE AMINO TRANSFERASE 11 U/L (5-34); BILIRUBIN,TOTAL 0.4 MG/DL (0.1-1.0); BLOOD UREA NITROGEN 15 MG/DL (7-18); BUN/CREATININE RATIO 19; CALCIUM 9.3 MG/DL (8.5-10.1); CARBON DIOXIDE 22 MMOL/L (21-32); CHLORIDE 103 MMOL/L (98-107); CREATININE SERUM 0.79 MG/DL (0.60-1.30); GFR ESTIMATED > 60; GLUCOSE 184 MG/DL (70-105); MAGNESIUM 1.6 MG/DL (1.8-2.4); POTASSIUM 3.9 MMOL/L (3.6-5.0); SODIUM 140 MMOL/L (135-145); TOTAL PROTEIN 6.7 GM/DL (6.4-8.2)
--- NOTE | 2017-06-01 02:23 | ED General ---
General Chief Complaint: Abdominal/GI Problems Stated Complaint: ABD PAIN,NAUSEA,WEAKNESS Nursing Triage Note: PT TO ED 8 PER EMS FOR C/O ABD PAIN, NAUSEA ET DIZZINESS. PT UNABLE TO SIT UP W/O DIZZINESS Nursing Sepsis Screen: No Definite Risk Source of Information: Patient, EMS Exam Limitations: No Limitations History of Present Illness Time Seen by Provider: 01:54 Initial Comments Here with report of nausea, vomiting and dizziness. Patient apparently had blood sugar that was elevated tonight in the 200s she drank a lot of water. Afterwards she became dizzy with abdominal pain, nausea and vomiting. EMS was summoned. During this episode she had some left arm pain. She was given Zofran by EMS and this did help some. Still complaining of dizziness and feeling weak currently. Timing/Duration: 1-3 Hours Severity: Moderate Associated Systoms: No Chest Pain, No Cough, No Fever/Chills, No Headaches, Nausea/Vomiting, No Shortness of Air, Weakness Allergies and Home Medications Allergies Coded Allergies: azithromycin (Verified Allergy, Unknown, 06/23/12) cephalexin (Verified Allergy, Unknown, 04/23/06) levofloxacin (Verified Allergy, Unknown, 06/23/12) meloxicam (Verified Allergy, Unknown, 06/23/12) metoprolol (Verified Allergy, Unknown, NECK SPASMS, 10/18/16) metronidazole (Verified Allergy, Unknown, 06/23/12) morphine (Verified Allergy, Unknown, 04/23/06) theophylline (Verified Allergy, Unknown, 04/23/06) prednisone (Verified Adverse Reaction, Intermediate, STOMACH BLEED, ) norfloxacin (Verified Adverse Reaction, Unknown, GI INTOLERANCE, 09/11/07) trovafloxacin (Verified Adverse Reaction, Unknown, GI INTOLERANCE, 09/11/07) Home Medications Albuterol Sulfate 2.5 Mg/3 Ml Vial.neb, 2.5 MG NEB QID PRN for SHORTNESS OF BREATH, (Reported) Albuterol Sulfate 1 Puff Puff, 2 PUFF INH Q4H PRN for SHORTNESS OF BREATH, ( Reported) Alprazolam 0.25 Mg Tablet, 0.25 MG PO TID, #90 Ref 2 Prescribed by: JUAN FRANCISCO ELAINE on 10/20/16 1017 Budesonide/Formoterol Fumarate 10.2 Gm Hfa.aer.ad, 2 PUFF IH BID, (Reported) EITHER USES BREO OR SYMBICROT, DOES NOT USE THEM TOGETHER Clopidogrel Bisulfate 75 Mg Tablet, 75 MG PO DAILY, (Reported) Cyclobenzaprine HCl 5 Mg Tablet, 5 MG PO TID PRN for PAIN-MODERATE, #14 Prescribed by: CR CASON on 05/16/17 1600 Digoxin 250 Mcg Tablet, 250 MCG PO HS, (Reported) Fluticasone/Vilanterol 1 Each Blst.w.dev, 1 PUFF INH DAILY, (Reported) USES EITHER BREO OR SYMBICORT, DOES NOT USE THEM TOGETHER Glipizide 5 Mg Tablet, 2.5 MG PO BID, (Reported) TAKES 1/2 OF A (5 MG) TABLET Hyoscyamine Sulfate 0.125 Mg Tablet, 0.125 MG PO Q6H, #120 Prescribed by: PATRICIA KELLY on 10/20/16 1112 Levothyroxine Sodium 88 Mcg Tablet, 88 MCG PO DAILY, (Reported) Montelukast Sodium 10 Mg Tablet, 10 MG PO HS PRN for ALLERGIES/ASTHMA, (Reported ) Multivitamin 1 Each Tablet, 1 TAB PO DAILY, (Reported) [place] 3 Polyunsat Fatty Acids 1,000 Mg Cap, 2,000 MG PO DAILY, (Reported) TAKES 2 (1,000MG) CAPSULES Pantoprazole Sodium 40 Mg Tablet.dr, 40 MG PO DAILY for 90 Days, #90 Ref 3 Prescribed by: JUAN FRANCISCO ELAINE on 10/20/16 1017 Sitagliptin Phos/Metformin HCl 1 Each Tbmp.24hr, 1 TAB PO DAILY, (Reported) Sucralfate 1 Gm Tablet, 1 GM PO ACHS for 30 Days, #120 Ref 6 TAKE A SLURRY - ALLOW MEDICATION TO DISSOLVE IN 10ML OF WATER PRIOR TO TAKING Prescribed by: JUAN FRANCISCO ELAINE on 10/20/16 1017 [Liq Vit B Comp] , 1 APPFUL PO DAILY, (Reported) Constitutional: see HPI, No chills, dizziness, No fever, weakness EENTM: no symptoms reported Respiratory: no symptoms reported, No cough, No short of breath Cardiovascular: No chest pain, No edema Gastrointestinal: abdominal pain (upper), nausea, vomiting Genitourinary: No dysuria, No pain Musculoskeletal: no symptoms reported Skin: no symptoms reported Psychiatric/Neurological: See HPI, Anxiety, Weakness All Other Systems Reviewed Negative Unless Noted: Yes Past [place]-Orvnph-Dlrgyn Hx Patient Social History Alcohol Use: Denies Use Recreational Drug Use: No Smoking Status: Never a Smoker 2nd Hand Smoke Exposure: No Recent Foreign Travel: No Contact w/Someone Who Travel: No Recent Infectious Disease Expo: No Recent Hopitalizations: No Physical Abuse: No Sexual Abuse: No Mistreated: No Fear: No Immunizations Up To Date Tetanus Booster (TDap): Unknown Date of Pneumonia Vaccine: Mar 14, 2011 Date of Influenza Vaccine: Mar 09, 2015 Seasonal Allergies Seasonal Allergies: Yes Surgeries History of Surgeries: Yes (R Thyroidectomy, Carpal Tunnel, heart stent) Surgeries: Coronary Stent, Orthopedic, Thyroidectomy Respiratory History of Respiratory Disorde: Yes (asthma) Respiratory Disorders: Asthma, Pulmonary Embolism, COPD Currently Using CPAP: No Currently Using BIPAP: No Cardiovascular History of Cardiac Disorders: Yes (stents x 3, implanted heart monitor) Cardiac Disorders: Coronary Artery Disease, Deep Vein Thrombosis, High Cholesterol, Hypertension Neurological History of Neurological Disord: No Reproductive System Hx Reproductive Disorders: No Sexually Transmitted Disease: No HIV/AIDS: No Female Reproductive Disorders: Denies Genitourinary History of Genitourinary Disor: No Gastrointestinal History of Gastrointestinal Di: Yes (stomach bleeds) Gastrointestinal Disorders: Gastroesophageal Reflux, Gastrointestinal Bleed, Chronic Diarrhea, Gall Bladder Disease Musculoskeletal History of Musculoskeletal Dis: Yes Musculoskeletal Disorders: Arthritis, Rheumatoid Arthritis Endocrine History of Endocrine Disorders: Yes (right thyroidectomy) Endocrine Disorders: Diabetes, Non-Insulin dep HEENT HEENT Disorders: Cataract Loss of Vision: Denies Hearing Impairment: Denies Cancer History of Cancer: No Psychosocial History of Psychiatric Problem: No Suicide Risk Score: 0 Integumentary History of Skin or Integumenta: No Blood Transfusions History of Blood Disorders: Yes Adverse Reaction to a Blood Tr: No Reviewed Nursing Assessment Reviewed/Agree w Nursing PMH: Yes Family Medical History Significant Family History: Heart Disease, Hypertension Family Medial History: Patient reports no known family medical history. Physical Exam Vital Signs Vital Sign - Last 12Hours 06/01/17 01:47 Temp 98.1 Pulse 68 Resp 20 B/P (MAP) 162/98 Pulse Ox 98 O2 Delivery Room Air Capillary Refill : Less Than 3 Seconds General Appearance: WD/WN, Anxious, Mild Distress HEENT: PERRL/EOMI, Pharynx Normal Neck: Normal Inspection, Non Tender, Supple Respiratory: Lungs Clear, Normal Breath Sounds Cardiovascular: Regular Rate, Rhythm, No Murmur Gastrointestinal: Non Tender, Soft Back: Normal Inspection, No CVA Tenderness, No Vertebral Tenderness Extremity: Normal Range of Motion, Non Tender Neurologic/Psychiatric: Alert, Oriented x3 Skin: Normal Color, Warm/Dry Progress/Results/Core Measures Suspected Sepsis Recent Fever Within 48 Hours: No Infection Criteria Present: None New/Unexplained Altered Menta: No Sepsis Screen: No Definite Risk Sepsis Diagnosis: SIRS Temperature:98.1 Pulse: 68 Respiratory Rate: 20 Laboratory Tests 06/01/17 01:55: White Blood Count 11.2H Blood Pressure 162 /98 Mean: 119 Laboratory Tests 06/01/17 01:55: Creatinine 0.79, Platelet Count 376, Total Bilirubin 0.4 Results/Orders Lab Results Laboratory Tests Test 06/01/17 01:55 06/01/17 02:12 Range/Units White Blood Count 11.2 H 4.3-11.0 10^3/uL Red Blood Count 4.91 4.35-5.85 10^6/uL Hemoglobin 13.3 11.5-16.0 G/DL Hematocrit 41 35-52 % Mean Corpuscular Volume 84 80-99 FL Mean Corpuscular Hemoglobin 27 25-34 PG Mean Corpuscular Hemoglobin Concent 32 32-36 G/DL Red Cell Distribution Width 15.7 H 10.0-14.5 % Platelet Count 376 130-400 10^3/uL Mean Platelet Volume 10.4 7.4-10.4 FL Neutrophils (%) (Auto) 72 42-75 % Lymphocytes (%) (Auto) 15 12-44 % Monocytes (%) (Auto) 8 0-12 % Eosinophils (%) (Auto) 5 0-10 % Basophils (%) (Auto) 1 0-10 % Neutrophils # (Auto) 8.0 H 1.8-7.8 X 10^3 Lymphocytes # (Auto) 1.7 1.0-4.0 X 10^3 Monocytes # (Auto) 0.9 0.0-1.0 X 10^3 Eosinophils # (Auto) 0.5 H 0.0-0.3 10^3/uL Basophils # (Auto) 0.1 0.0-0.1 10^3/uL Sodium Level 140 135-145 MMOL/L Potassium Level 3.9 3.6-5.0 MMOL/L Chloride Level 103 98-107 MMOL/L Carbon Dioxide Level 22 21-32 MMOL/L Anion Gap 15 H 5-14 MMOL/L Blood Urea Nitrogen 15 7-18 MG/DL Creatinine 0.79 0.60-1.30 MG/DL Estimat Glomerular Filtration Rate > 60 BUN/Creatinine Ratio 19 Glucose Level 184 H 70-105 MG/DL Calcium Level 9.3 8.5-10.1 MG/DL Magnesium Level 1.6 L 1.8-2.4 MG/DL Total Bilirubin 0.4 0.1-1.0 MG/DL Aspartate Amino Transf (AST/SGOT) 11 5-34 U/L Alanine Aminotransferase (ALT/SGPT) 17 0-55 U/L Alkaline Phosphatase 66 40-136 U/L Troponin I < 0.30 <0.30 NG/ML C-Reactive Protein High Sensitivity 0.40 0.00-0.50 MG/DL Total Protein 6.7 6.4-8.2 GM/DL Albumin 4.0 3.2-4.5 GM/DL Urine Color YELLOW Urine Clarity CLEAR Urine pH 5 5-9 Urine Specific [place] 1.010 L 1.016-1.022 Urine Protein NEGATIVE NEGATIVE Urine Glucose (UA) NEGATIVE NEGATIVE Urine Ketones NEGATIVE NEGATIVE Urine Nitrite NEGATIVE NEGATIVE Urine Bilirubin NEGATIVE NEGATIVE Urine Urobilinogen NORMAL NORMAL MG/DL Urine Leukocyte Esterase NEGATIVE NEGATIVE Urine RBC (Auto) NEGATIVE NEGATIVE Urine RBC NONE /HPF Urine WBC NONE /HPF Urine Squamous Epithelial Cells 2-5 /HPF Urine Crystals NONE /LPF Urine Bacteria NEGATIVE /HPF Urine Casts NONE /LPF Urine Mucus NEGATIVE /LPF Urine Culture Indicated NO My Orders Orders - RACHAEL PIMENTEL MD Cbc With Automated Diff (06/01/17 01:57) Comprehensive Metabolic Panel (06/01/17 01:57) Hs C Reactive Protein (06/01/17 01:57) Magnesium (06/01/17 01:57) Troponin I (06/01/17 01:57) Ua Culture If Indicated (06/01/17 01:57) Chest 1 View, Ap/Pa Only (06/01/17 01:57) Ekg Tracing (06/01/17 01:57) Monitor-Rhythm Ecg Trace Only (06/01/17 01:57) Ns Iv 500 Ml (Sodium Chloride 0.9%) (06/01/17 01:57) Meclizine Tablet (Antivert Tablet) (06/01/17 02:45) Meclizine Tablet (Antivert Tablet) (06/01/17 02:37) Amoxicillin/Clavulanate Tablet (Augmenti (06/01/17 03:45) Medications Given in ED Current Medications Medications Dose Ordered Sig/Mary Route Start Time Stop Time Status Last Admin Dose Admin Meclizine HCl 25 mg ONCE ONCE PO 06/01/17 02:45 06/01/17 02:46 DC 06/01/17 02:50 25 MG Sodium Chloride 500 ml @ 0 mls/hr Q0M ONCE IV 06/01/17 01:57 06/01/17 01:59 DC 06/01/17 02:12 500 MLS/HR Vital Signs/I&O Vital Sign - Last 12Hours 06/01/17 01:47 Temp 98.1 Pulse 68 Resp 20 B/P (MAP) 162/98 Pulse Ox 98 O2 Delivery Room Air Capillary Refill : Less Than 3 Seconds Blood Pressure Mean: 119 Progress Note : Progress Note Seen and evaluated. IV by EMS. Labs, UA, EKG and chest x-ray ordered. Normal saline 500 mL bolus. Monitor patient. Meclizine 25 mg by mouth given for dizziness. Patient able to transfer to the commode without much difficulty although was dizzy on return to the bed which precipitated the meclizine dosing. 0405: Augmentin 875 given. In review of patient's history, she had similar presentation [address] noted sinusitis. Patient does admit to increasing mucus production of the face as well as some fullness and pain in the frontal and maxillary sinus area. We did discuss the potential for repeat peak CT scan now versus attempting outpatient treatment with antibiotics. She has elected for antibiotics only at this point with potential for CT indicated later. This seems a reasonable option and she will be able to tolerate standing after meclizine dosing. 0420: Patient able to stand and walk under her own accord. States that she is hungry. She did get some crackers which she asked for and appreciative of. At this point we will discharge her home. Discharged home with return precautions. Patient and family verbalize understanding instructions and agreement with plan. ECG Initial ECG Impression Date: Jun 01, 2017 Initial ECG Impression Time: 01:59 Initial ECG Rate: 59 Comment Junctional rhythm with normal axis. No evidence of ST elevation SD. Question of depression in the lateral leads although similar to 18 October 2016. Interpreted by me. Diagnostic Imaging Diagonstic Imaging: Xray Plain Films/CT/US/NM/MRI: chest Comments Linear atelectasis left base without acute findings otherwise. Departure Impression Impression: Primary Impression: Sinusitis, acute Qualified Codes: J01.10 - Acute frontal sinusitis, unspecified Additional Impression: Dizziness Disposition: 01 HOME, SELF-CARE Condition: Stable Departure-Patient Inst. Decision time for Depature: 04:23 Referrals: JUAN FRANCISCO ELAINE MD (PCP/Family) Primary Care Physician Patient Instructions: Dizziness, Nonvertigo, (DC), Sinusitis, Adult (DC) Add. Discharge Instructions: All discharge instructions reviewed with patient and/or family. Voiced understanding. Take medications as directed. Follow-up with Dr. Elaine early next week for recheck and further evaluation. Return for worse pain, fever, vomiting, weakness, breathing problems or other concerns as needed. Scripts Amoxicillin/Potassium Clav (Augmentin 875-125 Tablet) 1 Each Tablet 1 EACH PO BID, #20 TAB 0 Refills Prov: RACHAEL PIMENTEL MD 06/01/17 Copy Copies To 1: JUAN FRANCISCO ELAINE MD, TIMOTHY D MD Jun 01, 2017 02:23
[2017-06-01 02:26] LABS: TROPONIN I < 0.30 NG/ML (<0.30)
[2017-06-01] MEDS ORDERED: MECLIZINE 25 MG (ANTIVERT) TAB ONE (02:37)
[2017-06-01] MEDS ORDERED: MECLIZINE 25 MG (ANTIVERT) TAB PO ONE (02:45)
[2017-06-01] MEDS ORDERED: AUGMENTIN 875 MG TAB (AMOXICILLIN/CLAVULANATE) PO STA (03:45)
[2017-06-01] MEDS ORDERED: AMOX-358 PO (04:23)
[2017-06-01 04:28] VITALS: BP 123/54
--- NOTE | 2017-06-01 07:00 | Diagnostic Imaging Report ---
INDICATION: Dizziness with nausea and vomiting. COMPARISON: 05/16/2017. FINDINGS: Left basilar linear atelectasis. There is also patchy atelectasis in the posterior right lower lobe. No pleural effusion or pneumothorax. Heart is normal in size. Normal pulmonary vasculature. IMPRESSION: 1. No acute cardiopulmonary process by portable radiography. Dictated by: Dictated on workstation # [id number]
== END 2017-06-01 04:28 | disposition home or self-care (01) ==
LOC: EDUNIT# 01:47 → ER 01:48
DX: J01.90 Acute sinusitis, unspecified (principal); R42 Dizziness and giddiness; E11.9 Type 2 diabetes mellitus without complications; M06.9 Rheumatoid arthritis, unspecified; K21.9 Gastro-esophageal reflux disease without esophagitis; I25.10 Atherosclerotic heart disease of native coronary artery without angina pectoris; E78.00 Pure hypercholesterolemia, unspecified; I10 Essential (primary) hypertension; J44.9 Chronic obstructive pulmonary disease, unspecified; Z86.711 Personal history of pulmonary embolism; Z90.89 Acquired absence of other organs; Z86.718 Personal history of other venous thrombosis and embolism; Z95.5 Presence of coronary angioplasty implant and graft; Z79.84 Long term (current) use of oral hypoglycemic drugs; Z82.49 Family history of ischemic heart disease and other diseases of the circulatory system
CPT/HCPCS: 36415; 71010; 80053; 81000; 83735; 84484; 85025; 86141; 93041

== ENCOUNTER 2017-09-12 14:55 | Inpatient (IN) | payer MEDICARE, OTHER ==
[~2017-09-12] VITALS: Ht 154.9 cm; Wt 66.9 kg
[2017-09-12] VITALS (7 sets, daily range): BP systolic 112–126; BP diastolic 46–58
[~2017-09-12 14:55] MED LIST changes: +AMOX-358 PO
[2017-09-12] MEDS ORDERED: DILTIAZEM INJECTION 125 MG in NS (IVPB) 100 ML IV SCH (15:00)
[2017-09-12] MEDS ORDERED: ASPIRIN 81 MG CHEW (CHILDREN'S ASA) PO ONE (15:00)
--- OUTSIDE RECORDS SUMMARY | 2017-09-12 15:09 | XMS REPORT | CCD ---
Author Author Clarice Elaine Organization Clarice Elaine MD, [facility] Address [address] [place] [address] Phone Care Team Providers Care Business Project Manager Name Role Phone PP Unavailable CCM Unavailable Summary Purpose Interface Exchange Insurance Providers Payer name Policy type / Coverage type Covered libertarian ID Effective Begin Date Effective End Date [facility] Medicare Part B [id number] 2013 Unknown [facility] Medicare Part B [id number] 2013 Unknown Family history Father Diagnosis Age At Onset Leukemia Unknown Runs in the family Diagnosis Age At Onset Asthma Unknown Sister Diagnosis Age At Onset Breast cancer Unknown Mother Diagnosis Age At Onset Hypertension Unknown Stroke Unknown Brother Diagnosis Age At Onset Diabetes Unknown Hypertension Unknown Social History Social History Element Codes Description Effective Dates Marital status Unknown 05/05/2011 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 Unknown Has never used illegal drugs 05/05/2011 Allergies, Adverse Reactions, Alerts Allergies, Adverse Reactions, Alerts data not found Past Medical History Illness Codes Condition Status Onset Date Resolved Date Essential (primary) hypertension ICD-9: 401.9 ICD-10: I10 Active 11/10/2013 Unknown Impacted cerumen, right ear ICD-9: 380.4 ICD-10: H61.21 Active 05/29/2017 Unknown Acute bronchitis due to other specified organisms ICD-9: 466.0 ICD-10: J20.8 Active 05/14/2017 Unknown Cough ICD-9: 786.2 ICD-10: R05 Active 05/14/2017 Unknown Mild intermittent asthma with (acute) exacerbation ICD-9: 493.12 ICD-10: J45.21 Active 10/24/2015 Unknown Other chest pain ICD-9 : 786.52 ICD-10: R07.89 Active 05/14/2017 Unknown Encounter for immunization ICD-9: V04.81 ICD-10: Z23 Active 04/30/2017 Unknown Type 2 diabetes mellitus with hyperglycemia ICD-9: 250.02 ICD-10: E11.65 Active 11/10/2013 Unknown Gastro-esophageal reflux disease without esophagitis ICD-9: 530.81 ICD-10: K21.9 Active 10/12/2016 Unknown 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 condition ICD-9: 293.84 ICD-10: F06.4 Active 10/18/2015 Unknown Localized edema ICD-9 : 782.3 ICD-10: R60.0 Active 05/29/2016 Unknown Pain in left ankle and joints of left foot ICD-9: 719.47 ICD-10: M25.572 Active 05/29/2016 Unknown Moderate persistent asthma, uncomplicated ICD-9: 493.90 ICD-10: J45.40 Active 02/28/2016 Unknown Paroxysmal atrial fibrillation ICD-9: 427.31 ICD-10: I48.0 Active 07/15/2012 Unknown Type 2 diabetes mellitus without complications ICD-9: 250.00 ICD-10: E11.9 Active 12/11/2013 Unknown Acute maxillary sinusitis, unspecified ICD-9: 461.0 ICD-10: J01.00 Active 02/02/2016 Unknown Hypothyroidism, unspecified ICD-9: 244.9 ICD-10: E03.9 Active 12/11/2013 Unknown Acute sinusitis, unspecified ICD-9: 461.9 ICD-10: J01.90 Active 11/10/2015 Unknown Chronic fatigue, unspecified ICD-9: 780.79 ICD-10: R53.82 Active 07/15/2012 Unknown Dyspnea, unspecified ICD-9: 786.09 ICD-10: R06.00 Active 10/18/2015 Unknown Other chest pain ICD-9 : 786.59 ICD-10: R07.89 Active 10/18/2015 Unknown ACUTE BRONCHITIS ICD-9 : 466.0 Active 08/17/2014 Unknown Acute asthma exacerbation ICD-9: 493.92 Active 04/13/2014 Unknown DIABETES TYPE II ICD-9 : 250.00 Active 12/11/2013 Unknown HYPOTHYROIDISM ICD-9: 244.9 Active 12/11/2013 Unknown DM W/O COMPLICATION TYPE II, UNCONTROLLED ICD-9: 250.02 Active 11/10/2013 Unknown ESSENTIAL HYPERTENSION ICD-9: 401.9 Active 11/10/2013 Unknown VACCIN FOR INFLUENZA ICD-9: V04.81 Active 05/12/2013 Unknown Lump of breast, right ICD-9: 611.72 Active 09/11/2012 Unknown Lump on neck ICD-9: 784.2 Active 09/11/2012 Unknown Atrial fibrillation ICD-9: 427.31 Active 07/15/2012 Unknown Encounter for monitoring digoxin therapy ICD-9: V58.83 Active 07/15/2012 Unknown Fatigue ICD-9: 780.79 Active 07/15/2012 Unknown Hypothryroidism Unknown Active 03/26/2012 Unknown Immunization, pneumococcus and influenza ICD-9: V06.6 Active Unknown Hyperlipidemia Unknown Active 01/08/2012 Unknown HYPERLIPIDEMIA ICD-9: 272.4 Active 01/08/2012 Unknown Hypertension Unknown Active 11/27/2011 Unknown Diabetes Unknown Active 11/06/2011 Unknown Chronic obstructive pulmonary disease Unknown Inactive 2011 Unknown Diverticular disease Unknown Inactive 11/06/2011 Unknown Osteoporosis Unknown Inactive 11/06/2011 Unknown Abdominal pain ICD-9: 789.00 Inactive 10/04/2011 Unknown ACUTE SINUSITIS ICD-9 : 461.9 Inactive 11/06/2011 Unknown ANEMIA ICD-9: 285.9 Inactive 10/25/2011 Unknown Gastritis ICD-9: 535.50 Inactive 10/25/2011 Unknown Muscle spasm ICD-9: 728.85 Inactive 07/31/2011 Unknown ANEMIA NEC ICD-9: 285.8 Active 10/16/2011 Unknown Anemia associated with acute blood loss ICD-9: 285.1 Active 10/2011 Unknown Gastritis, acute with hemorrhage ICD-9: 535.01 Active 2011 Unknown ENCNTR LONG-RX USE NEC ICD-9: V58.69 Active 10/04/2011 Unknown Hematochezia ICD-9: 578.1 Active 10/04/2011 Unknown Coronary artery disease ICD-9: 414.00 Active 09/25/2011 Unknown Arthralgia ICD-9: 719.40 Active 07/31/2011 Unknown MYALGIA AND MYOSITIS ICD-9: 729.1 Active 07/31/2011 Unknown Cervicalgia ICD-9: 723.1 Active 05/22/2011 Unknown Problems Condition Codes Effective Dates Condition Status Essential (primary) hypertension ICD-9: 401.9 ICD-10: I10 11/10/2013 Active Impacted cerumen, right ear ICD-9: 380.4 ICD-10: H61.21 05/29/2017 Active Acute bronchitis due to other specified organisms ICD-9: 466.0 ICD-10: J20.8 05/14/2017 Active Cough ICD-9: 786.2 ICD-10: R05 05/14/2017 Active Mild intermittent asthma with (acute) exacerbation ICD-9: 493.12 ICD-10: J45.21 10/24/2015 Active Other chest pain ICD-9 : 786.52 ICD-10: R07.89 05/14/2017 Active Encounter for immunization ICD-9: V04.81 ICD-10: Z23 04/30/2017 Active Type 2 diabetes mellitus with hyperglycemia ICD-9: 250.02 ICD-10: E11.65 11/10/2013 Active Gastro-esophageal reflux disease without esophagitis ICD-9: 530.81 ICD-10: K21.9 10/12/2016 Active 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 condition ICD-9: 293.84 ICD-10: F06.4 10/18/2015 Active Localized edema ICD-9 : 782.3 ICD-10: R60.0 05/29/2016 Active Pain in left ankle and joints of left foot ICD-9: 719.47 ICD-10: M25.572 05/29/2016 Active Moderate persistent asthma, uncomplicated ICD-9: 493.90 ICD-10: J45.40 02/28/2016 Active Paroxysmal atrial fibrillation ICD-9: 427.31 ICD-10: I48.0 07/15/2012 Active Type 2 diabetes mellitus without complications ICD-9: 250.00 ICD-10: E11.9 12/11/2013 Active Acute maxillary sinusitis, unspecified ICD-9: 461.0 ICD-10: J01.00 02/02/2016 Active Hypothyroidism, unspecified ICD-9: 244.9 ICD-10: E03.9 12/11/2013 Active Acute sinusitis, unspecified ICD-9: 461.9 ICD-10: J01.90 11/10/2015 Active Chronic fatigue, unspecified ICD-9: 780.79 ICD-10: R53.82 07/15/2012 Active Dyspnea, unspecified ICD-9: 786.09 ICD-10: R06.00 10/18/2015 Active Other chest pain ICD-9 : 786.59 ICD-10: R07.89 10/18/2015 Active ACUTE BRONCHITIS ICD-9 : 466.0 08/17/2014 Active Acute asthma exacerbation ICD-9: 493.92 04/13/2014 Active DIABETES TYPE II ICD-9 : 250.00 12/11/2013 Active HYPOTHYROIDISM ICD-9: 244.9 12/11/2013 Active DM W/O COMPLICATION TYPE II, UNCONTROLLED ICD-9: 250.02 11/10/2013 Active ESSENTIAL HYPERTENSION ICD-9: 401.9 11/10/2013 Active VACCIN FOR INFLUENZA ICD-9: V04.81 05/12/2013 Active Lump of breast, right ICD-9: 611.72 09/11/2012 Active Lump on neck ICD-9: 784.2 09/11/2012 Active Atrial fibrillation ICD-9: 427.31 07/15/2012 Active Encounter for monitoring digoxin therapy ICD-9: V58.83 07/15/2012 Active Fatigue ICD-9: 780.79 07/15/2012 Active Hypothryroidism Unknown 03/26/2012 Active Immunization, pneumococcus and influenza ICD-9: V06.6 03/26/2012 Active Hyperlipidemia Unknown 01/08/2012 Active HYPERLIPIDEMIA ICD-9: 272.4 01/08/2012 Active Hypertension Unknown 11/27/2011 Active Diabetes Unknown 11/06/2011 Active Chronic obstructive pulmonary disease Unknown 11/06/2011 Inactive Diverticular disease Unknown 11/06/2011 Inactive Osteoporosis Unknown 11/06/2011 Inactive Abdominal pain ICD-9: 789.00 10/04/2011 Inactive ACUTE SINUSITIS ICD-9 : 461.9 11/06/2011 Inactive ANEMIA ICD-9: 285.9 10/25/2011 Inactive Gastritis ICD-9: 535.50 10/25/2011 Inactive Muscle spasm ICD-9: 728.85 07/31/2011 Inactive ANEMIA NEC ICD-9: 285.8 10/16/2011 Active Anemia associated with acute blood loss ICD-9: 285.1 10/11/2011 Active Gastritis, acute with hemorrhage ICD-9: 535.01 10/11/2011 Active ENCNTR LONG-RX USE NEC ICD-9: V58.69 10/04/2011 Active Hematochezia ICD-9: 578.1 10/04/2011 Active Coronary artery disease ICD-9: 414.00 09/25/2011 Active Arthralgia ICD-9: 719.40 07/31/2011 Active MYALGIA AND MYOSITIS ICD-9: 729.1 07/31/2011 Active Cervicalgia ICD-9: 723.1 05/22/2011 Active Medications Medication Codes Instructions Start Date Stop Date Status Fill Instructions albuterol sulfate 2.5 mg/3 mL (0.083 %) solution for nebulization RxNorm: 853177 USE ONE VIAL IN NEBULIZER 4 TIMES DAILY NEEDED FOR ASTHMA 08/16/2017 No Stop Date Active Plavix 75 mg tablet RxNorm: 225297 1 Tablet(s) PO daily TAKE ONE TABLET BY MOUTH ONCE DAILY 06/25/2017 06/19/2018 Active Plavix 75 mg tablet RxNorm: 832872 TAKE ONE TABLET BY MOUTH ONCE DAILY 06/25/2017 06/24/2017 Inactive acyclovir 800 mg tablet RxNorm: 080449 1 Tablet(s) PO QID 05/1505/14/2017 Inactive acyclovir 800 mg tablet RxNorm: 678320 1 Tablet(s) PO QID 05/1505/21/2017 Inactive tramadol 50 mg tablet RxNorm: 789736 1 Tablet(s) PO TID 201605/24/2017 Inactive ketorolac 60 mg/2 mL intramuscular solution RxNorm: 502161 2 Milliliter(s) IM 05/14/2017 05/14/2017 Inactive Augmentin 875 mg-125 mg tablet RxNorm: 718110 1 Tablet(s) PO BID 05/14/2017 05/23/2017 Inactive Synthroid 88 mcg tablet RxNorm: 097260 TAKE ONE TABLET BY MOUTH ONCE DAILY; NEED THYROID LABS DONE 04/16/2017 10/12/2017 Active metformin 500 mg tablet RxNorm: 924634 1 Tablet(s) UD 1 tab at breakfast, 1tab at lunch, 2 tab at supper 03/06/20172017 Active Kenalog 40 mg/mL suspension for injection RxNorm: 3251896 Milliliter(s) Inj 03/06/2017 03/06/2017 Inactive glipizide 5 mg tablet RxNorm: 445307 TAKE ONE-HALF TABLET BY MOUTH TWICE DAILY 02/23/2017 11/19/2017 Active Synthroid 88 mcg tablet RxNorm: 207220 Tablet(s) PO TAKE ONE TABLET BY MOUTH DAILY 01/17/2017 04/15/2017 Inactive Needs thyroid labs done Plavix 75 mg tablet RxNorm: 571761 TAKE ONE TABLET BY MOUTH ONCE DAILY 12/25/2016 06/22/2017 Inactive Kenalog 40 mg/mL suspension for injection RxNorm: 5257260 1.5 Milliliter(s) Inj 09/04/2016 09/04/2016 Inactive Janumet XR 100 mg-1,000 mg tablet,extended release RxNorm: 7271642 1 Tablet(s) PO daily 09/04/2016 03/02/2017 Inactive glipizide 5 mg tablet RxNorm: 246080 TAKE ONE-HALF TABLET BY MOUTH TWICE DAILY 08/24/2016 02/19/2017 Inactive Janumet XR 50 mg-1,000 mg tablet,extended release RxNorm: 0145770 TAKE ONE TABLET BY MOUTH ONCE DAILY 05/29/2016 09/03/2016 Inactive metoprolol tartrate 25 mg tablet RxNorm: 132737 1/4 Tablet(s) PO BID 05/01/2016 05/29/2016 Inactive glipizide 5 mg tablet RxNorm: 846225 TAKE ONE-HALF TABLET BY MOUTH TWICE DAILY 02/21/2016 08/18/2016 Inactive ProAir HFA 90 mcg/actuation aerosol inhaler RxNorm: 368847 2 Puff(s) INH PRN as needed ASTHMA 02/03/2016 03/03/2016 Inactive Accu-Chek Active Test strips RxNorm: 1 test Miscellaneous daily 02/03/2016 08/25/2019 Active DX250.00 albuterol sulfate 2.5 mg/3 mL (0.083 %) solution for nebulization RxNorm: 946330 1 Milliliter(s) INH QID as needed ASTHMA 02/03/2016 06/01/2016 Inactive Janumet XR 50 mg-1,000 mg tablet,extended release RxNorm: 1791394 1 Tablet(s) PO daily 02/03/2016 05/28/2016 Inactive Augmentin 875 mg-125 mg tablet RxNorm: 385751 1 Tablet(s) PO BID 02/03/2016 02/12/2016 Inactive sucralfate 1 gram tablet RxNorm: 739207 1 Tablet(s) PO QID - take 30 minutes before meals and before supper 12/21/2015 04/18/2016 Inactive digoxin 250 mcg tablet RxNorm: 766435 1 Tablet(s) PO daily No Stop Date Active metformin ER 500 mg tablet,extended release 24 hr RxNorm: 101616 1 Tablet(s) PO BID 12/21/2015 02/02/2016 Inactive Synthroid 88 mcg tablet RxNorm: 189449 Tablet(s) PO TAKE ONE TABLET BY MOUTH DAILY 12/20/2015 01/16/2017 Inactive Plavix 75 mg tablet RxNorm: 910643 1 Tablet(s) PO daily 201512/13/2016 Inactive Kenalog 40 mg/mL suspension for injection RxNorm: 4768076 1 Milliliter(s) Inj 11/11/2015 11/11/2015 Inactive Kenalog 40 mg/mL suspension for injection RxNorm: 2129809 1 Milliliter(s) Inj 10/25/2015 10/25/2015 Inactive metformin 500 mg tablet RxNorm: 093557 2 Tablet(s) PO BID 07/1612/20/2015 Inactive metformin 500 mg tablet RxNorm: 190911 TAKE TWO TABLETS BY MOUTH TWICE DAILY 07/16/2015 12/20/2015 Inactive albuterol sulfate 2.5 mg/3 mL (0.083 %) solution for nebulization RxNorm: 875343 1 Milliliter(s) INH QID as needed ASTHMA 07/14/2015 11/10/2015 Inactive glipizide 5 mg tablet RxNorm: 897132 1/2 Tablet(s) PO BID 201401/28/2016 Inactive Symbicort 160 mcg-4.5 mcg/actuation HFA aerosol inhaler RxNorm: 0382020 1 INH 01/06/2015 No Stop Date Active metformin 500 mg tablet RxNorm: 155324 2 Tablet(s) PO BID 12/2206/19/2015 Inactive Synthroid 88 mcg tablet RxNorm: 812855 1 Tablet(s) PO daily TAKE ONE TABLET BY MOUTH DAILY 12/02/2014 11/26/2015 Inactive Plavix 75 mg tablet RxNorm: 602983 1 Tablet(s) PO daily 201411/26/2015 Inactive note directions of one per day Accu-Chek Active Test strips RxNorm: 1 test Miscellaneous daily 08/17/2014 02/02/2016 Inactive DX250.00 Kenalog 40 mg/mL suspension for injection RxNorm: 4620838 Milliliter(s) Inj 08/17/2014 08/17/2014 Inactive doxycycline hyclate 100 mg tablet RxNorm: 783056 1 Tablet(s) PO BID 08/17/2014 08/26/2014 Inactive albuterol sulfate 2.5 mg/3 mL (0.083 %) solution for nebulization RxNorm: 149699 1 Milliliter(s) INH QID as needed ASTHMA 08/17/2014 08/16/2014 Inactive albuterol sulfate 2.5 mg/3 mL (0.083 %) solution for nebulization RxNorm: 101389 1 Milliliter(s) INH QID as needed ASTHMA 08/17/2014 12/14/2014 Inactive doxycycline hyclate 100 mg tablet RxNorm: 828838 1 Tablet(s) PO BID 08/17/2014 08/16/2014 Inactive Accu-Chek Multiclix Lancet RxNorm: 1 Miscellaneous daily TEST BLOOD SUGAR EVERY DAY 08/17/2014 09/10/2015 Inactive DX 250.00 metformin 500 mg tablet RxNorm: 477440 TAKE TWO TABLETS BY MOUTH TWICE DAILY 06/23/2014 09/20/2014 Inactive metformin 500 mg tablet RxNorm: 243944 2 Tablet(s) PO BID 06/2212/18/2014 Inactive Bactrim DS 800 mg-160 mg tablet RxNorm: 100408 1 Tablet(s) PO BID 05/11/2014 05/17/2014 Inactive Bactrim DS 800 mg-160 mg tablet RxNorm: 647450 1 Tablet(s) PO BID 05/11/2014 05/10/2014 Inactive Kenalog 40 mg/mL suspension for injection RxNorm: 9544828 Milliliter(s) Inj 04/13/2014 04/13/2014 Inactive Accu-Chek Active Test strips RxNorm: 1 TEST MISCELLANEOUS BID 04/06/2014 10/22/2014 Inactive glipizide 5 mg tablet RxNorm: 061086 1/2 Tablet(s) PO BID 201302/02/2015 Inactive Synthroid 88 mcg tablet RxNorm: 164002 1 Tablet(s) PO daily TAKE ONE TABLET BY MOUTH DAILY 12/11/2013 12/01/2014 Inactive Plavix 75 mg tablet RxNorm: 743190 1 Tablet(s) PO daily 201312/01/2014 Inactive note directions of one per day glipizide 5 mg tablet RxNorm: 930070 1/2 Tablet(s) PO BID 201303/02/2014 Inactive Lipitor 10 mg tablet RxNorm: 867545 1 Tablet(s) PO daily 201312/21/2014 Inactive Accu-Chek Active Test strips RxNorm: strip miscellaneous TEST BLOOD SUGAR EVERY DAY 11/03/2013 No Stop Date Active Accu-Chek Multiclix Lancet RxNorm: misc miscellaneous TEST BLOOD SUGAR EVERY DAY 08/07/2013 08/16/2014 Inactive Accu-Chek Active Test strips RxNorm: strip miscellaneous TEST BLOOD SUGAR EVERY DAY 08/05/2013 No Stop Date Active digoxin 125 mcg tablet RxNorm: 784545 1 Tablet(s) PO daily 10/28/2014 Inactive metformin 500 mg tablet RxNorm: 670178 2 Tablet(s) PO BID 06/1206/21/2014 Inactive metformin 500 mg tablet RxNorm: 879466 2 Tablet(s) PO BID 05/1206/11/2013 Inactive metformin 500 mg tablet RxNorm: 051271 Tablet(s) PO TAKE ONE & ONE-HALF TABLETS BY MOUTH TWICE DAILY 04/10/20132012 Inactive Synthroid 88 mcg tablet RxNorm: 825132 Tablet(s) PO TAKE ONE TABLET BY MOUTH DAILY 01/07/2013 12/19/2015 Inactive Synthroid 88 mcg tablet RxNorm: 284523 1 Tablet(s) PO daily TAKE ONE TABLET BY MOUTH DAILY 01/06/2013 12/10/2013 Inactive Plavix 75 mg tablet RxNorm: 638720 1 Tablet(s) PO daily 201212/03/2013 Inactive note directions of one per day Lipitor 80 mg tablet RxNorm: 414381 Tablet(s) PO TAKE 1 TABLET BY MOUTH EVERY DAY 10/28/2012 11/09/2013 Inactive Synthroid 88 mcg tablet RxNorm: 734254 Tablet(s) PO TAKE ONE TABLET BY MOUTH DAILY 10/07/2012 10/06/2012 Inactive Synthroid 88 mcg tablet RxNorm: 804945 1 Tablet(s) PO daily TAKE ONE TABLET BY MOUTH DAILY 10/07/2012 01/05/2013 Inactive Kenalog 40 mg/mL Susp for Injection RxNorm: 6897656 1 Milliliter(s) IM 10/07/2012 10/07/2012 Inactive digoxin 250 mcg tablet RxNorm: 2300406 1/2 Tablet(s) PO daily 07/15/2012 08/04/2013 Inactive Synthroid 88 mcg tablet RxNorm: 091446 Tablet(s) PO TAKE ONE TABLET BY MOUTH DAILY 06/28/2012 10/06/2012 Inactive Accu-Chek Multiclix Lancet RxNorm: Misc Miscellaneous 2011 No Stop Date Active TEST BLOOD SUGAR EVERY DAY Accu-Chek Active Test Strips RxNorm: Strip Miscellaneous 06/05 No Stop Date Active TEST BLOOD SUGAR EVERY DAY Lipitor 80 mg tablet RxNorm: 708995 1/2 Tablet(s) PO daily No Stop Date Active TAKE 1 TABLET BY MOUTH EVERY DAY metformin 500 mg tablet RxNorm: 424263 1.5 Tablet(s) PO BID 04/09/2013 Inactive Lipitor 80 mg tablet RxNorm: 304410 1/2 Tablet(s) PO 201108/16/2014 Inactive TAKE 1 TABLET BY MOUTH EVERY DAY Lipitor 80 mg tablet RxNorm: 769311 1/2 Tablet(s) PO daily No Stop Date Active TAKE 1 TABLET BY MOUTH EVERY DAY Influenza Virus Vaccine 0.5 mL RxNorm: IM 03/26/2012 03/26/2012 Inactive Pneumovax 23 25 mcg/0.5 mL Injection RxNorm: 416800 Milliliter(s) Inj 03/26/2012 03/26/2012 Inactive metformin 500 mg tablet RxNorm: 897001 1 Tablet(s) PO BID 11/2603/27/2012 Inactive Plavix 75 mg tablet RxNorm: 644679 1 Tablet(s) PO daily 201111/24/2012 Inactive note directions of one per day Lipitor 80 mg tablet RxNorm: 988723 Tablet(s) PO 10/18/2011 03/27/2012 Inactive TAKE 1 TABLET BY MOUTH EVERY DAY Protonix 40 mg Tab RxNorm: 619338 1 Tablet(s) PO BID 201112/20/2015 Inactive Accu-Chek Active Test Strips RxNorm: 1 test Miscellaneous daily 10/04/2011 08/16/2014 Inactive Carafate 1 gram Tab RxNorm: 799969 1 Tablet(s) PO QID 201110/31/2011 Inactive Carafate 1 gram Tab RxNorm: 867948 1 Tablet(s) PO TID 201109/28/2011 Inactive Carafate 1 gram Tab RxNorm: 525196 1 Tablet(s) PO TID 201110/01/2011 Inactive Kenalog 40 mg/mL Susp for Injection RxNorm: 6860233 2 Milliliter(s) Inj 07/31/2011 07/31/2011 Inactive Synthroid 88 mcg tablet RxNorm: 534714 1 Tablet(s) PO daily 10/11/2011 Inactive Accu-Chek Active Test Strips RxNorm: 1 test Miscellaneous BID 06/05/2011 10/03/2011 Inactive Accu-Chek Multiclix Lancet RxNorm: 1 test Miscellaneous BID 09/24/2011 Inactive Accu-Chek Active Test strips RxNorm: 1 test Miscellaneous BID 06/02/2011 06/04/2011 Inactive Bactrim DS 800 mg-160 mg Tab RxNorm: 003871 1 Tablet(s) PO BID 05/22/2011 05/31/2011 Inactive metformin 500 mg Tab RxNorm: 946269 1 Tablet(s) PO TID 201010/31/2011 Inactive Influenza Virus Vaccine 0.5 mL RxNorm: IM 05/02/2011 05/02/2011 Inactive albuterol sulfate HFA 90 mcg/Actuation Aerosol Inhaler RxNorm: 776383 1 Puff(s) INH PRN prn shortness of breath No Start Date Active pantoprazole 40 mg tablet,delayed release RxNorm: 939065 1 Tablet(s) PO daily No Start Date Active Singulair 10 mg tablet RxNorm: 079142 1 Tablet(s) PO daily No Start Date Active multivitamin chewable tablet RxNorm: 1 Tablet(s) PO daily No Start Date Active Fish Oil 300 mg-1,000 mg capsule RxNorm: 713963 1 Capsule(s) PO occasional No Start Date Active hyoscyamine 0.125 mg sublingual tablet RxNorm: 6481787 1 Tablet(s) SL Q6 No Start Date Active simvastatin 20 mg tablet RxNorm: 721639 1/2 Tablet(s) PO daily No Start Date 12/20/2015 Inactive Zantac 75 75 mg Tab RxNorm: 925213 2 Tablet(s) PO daily No Start Date 12/20/2015 Inactive Protonix 40 mg Tab RxNorm: 797575 1 Tablet(s) PO daily No Start Date 10/10/2011 Inactive Fish Oil 1,000 mg capsule RxNorm: 3 Capsule(s) PO daily No Start Date 12/20/2015 Inactive digoxin 125 mcg tablet RxNorm: 5920979 1 Tablet(s) PO daily No Start Date 08/04/2013 Inactive Brilinta 90 mg Tab RxNorm: 3403325 1 Tablet(s) PO daily No Start Date 10/10/2011 Inactive Fish Oil 1,000 mg Cap RxNorm: 3 Capsule(s) PO daily No Start Date 12/21/2015 Inactive Flintstones Complete 18 mg iron chewable tablet RxNorm: 2 Tablet(s) PO daily No Start Date 12/20/2015 Inactive Niaspan Extended-Release 500 mg 24 hr Tab RxNorm: 1573258 1 Tablet(s) PO daily No Start Date 09/24/2011 Inactive samples tramadol 50 mg tablet RxNorm: 205640 1 Tablet(s) PO TID No Start Date 05/14/2017 Inactive aspirin 81 mg Cap, Delayed Release RxNorm: 575786 Capsule(s) PO daily No Start Date 05/01/2012 Inactive metformin 500 mg Tab RxNorm: 756820 1 Tablet(s) PO BID No Start Date 05/04/2011 Inactive Prilosec OTC 20 mg tablet,delayed release RxNorm: 018067 1 Tablet(s) PO daily No Start Date 10/31/2016 Inactive Zantac 150 mg Tab RxNorm: 839396 1 Tablet(s) PO BID No Start Date 10/10/2011 Inactive Synthroid 88 mcg Tab RxNorm: 464123 1 Tablet(s) PO daily No Start Date 06/05/2011 Inactive Plavix 75 mg Tab RxNorm: 424960 1 Tablet(s) PO daily No Start Date 10/31/2011 Inactive aspirin 81 mg Cap, Delayed Release RxNorm: 227805 1 Capsule(s) PO daily No Start Date 10/01/2011 Inactive Lipitor 80 mg Tab RxNorm: 569331 1 Tablet(s) PO daily No Start Date 10/17/2011 Inactive Symbicort 160 mcg-4.5 mcg/Actuation HFA Aerosol Inhaler RxNorm: 0817961 1 INH No Start Date 01/05/2015 Inactive Medication Administered Medication Codes Instructions Start Date Status ketorolac 60 mg/2 mL intramuscular solution RxNorm: 985259 2Milliliter 05/14/2017 No longer Active Kenalog 40 mg/mL suspension for injection RxNorm: 2198247 Milliliter 03/06/2017 No longer Active Kenalog 40 mg/mL suspension for injection RxNorm: 2234411 1.5Milliliter 09/04/2016 No longer Active Kenalog 40 mg/mL suspension for injection RxNorm: 5029731 1Milliliter 11/11/2015 No longer Active Kenalog 40 mg/mL suspension for injection RxNorm: 5167782 1Milliliter 10/25/2015 No longer Active Kenalog 40 mg/mL suspension for injection RxNorm: 2276002 Milliliter 08/17/2014 No longer Active Kenalog 40 mg/mL suspension for injection RxNorm: 4176859 Milliliter 04/13/2014 No longer Active Kenalog 40 mg/mL Susp for Injection RxNorm: 0833681 1Milliliter 10/07/2012 No longer Active Influenza Virus Vaccine 0.5 mL RxNorm: 03/26/2012 No longer Active Pneumovax 23 25 mcg/0.5 mL Injection RxNorm: 903273 Milliliter 03/26/2012 No longer Active Kenalog 40 mg/mL Susp for Injection RxNorm: 0714097 2Milliliter 07/31/2011 No longer Active Influenza Virus Vaccine 0.5 mL RxNorm: 05/02/2011 No longer Active Immunizations Vaccine Codes Date Status Influenza CVX: 141 04/30/2017 completed Pneumococcal CVX: 133 05/11/2016 completed Influenza CVX: 141 05/12/2013 completed Influenza CVX: 141 03/26/2012 completed Pneumococcal (Adult) CVX: 33 03/26/2012 completed Pneumococcal (Adult) CVX: 33 03/26/2012 completed Influenza CVX: 141 05/02/2011 completed Influenza CVX: 141 05/05/2010 completed Assessments Condition Codes Effective Dates Essential (primary) hypertension ICD-10: I10 ICD-9: 401.9 05/29/2017 Impacted cerumen, right ear ICD-10: H61.21 ICD-9: 380.4 05/29/2017 Acute bronchitis due to other specified organisms ICD-10: J20.8 ICD-9: 466.0 05/14/2017 Cough ICD-10: R05 ICD-9: 786.2 05/14/2017 Other chest pain ICD-10: R07.89 ICD-9: 786.52 05/14/2017 Encounter for immunization ICD-10: Z23 ICD-9: V04.81 04/30/2017 Mild intermittent asthma with (acute) exacerbation ICD-10: J45.21 ICD-9: 493.12 03/06/2017 Type 2 diabetes mellitus with hyperglycemia ICD-10: E11.65 ICD-9: 250.02 03/06/2017 Gastro-esophageal reflux disease with esophagitis ICD-10: K21.0 ICD-9: 530.11 11/01/2016 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 condition ICD-10 : F06.4 ICD-9: 293.84 10/18/2016 Gastro-esophageal reflux disease without esophagitis ICD-10 : K21.9 ICD-9: 530.81 10/12/2016 Localized edema ICD-10: R60.0 ICD-9: 782.3 05/30/2016 Pain in left ankle and joints of left foot ICD-10: M25.572 ICD-9: 719.47 05/30/2016 Type 2 diabetes mellitus without complications ICD-10: E11.9 ICD-9: 250.00 02/29/2016 Moderate persistent asthma, uncomplicated ICD-10: J45.40 ICD-9: 493.90 02/29/2016 Paroxysmal atrial fibrillation ICD-10: I48.0 ICD-9: 427.31 02/29/2016 Hypothyroidism, unspecified ICD-10: E03.9 ICD-9: 244.9 02/03/2016 Acute maxillary sinusitis, unspecified ICD-10: J01.00 ICD-9: 461.0 02/03/2016 Acute sinusitis, unspecified ICD-10: J01.90 ICD-9: 461.9 11/11/2015 Chronic fatigue, unspecified ICD-10: R53.82 ICD-9: 780.79 10/25/2015 Other chest pain ICD-10: R07.89 ICD-9: 786.59 10/19/2015 Dyspnea, unspecified ICD-10: R06.00 ICD-9: 786.09 10/19/2015 ESSENTIAL HYPERTENSION ICD-9: 401.9 12/22 DIABETES TYPE II ICD-9: 250.00 2014 ACUTE BRONCHITIS ICD-9: 466.0 08/17/2014 Acute asthma exacerbation ICD-9: 493.92 08/17/2014 HYPOTHYROIDISM ICD-9: 244.9 12/11/2013 DM W/O COMPLICATION TYPE II, UNCONTROLLED ICD-9: 250.02 11/10/2013 HYPERLIPIDEMIA ICD-9: 272.4 11/04/2013 ATRIAL FIBRILLATION ICD-9: 427.31 2013 ANEMIA NEC ICD-9: 285.8 11/04/2013 ENCNTR LONG-RX USE NEC ICD-9: V58.69 VACCIN FOR INFLUENZA ICD-9: V04.81 2012 Fatigue ICD-9: 780.79 10/07/2012 Lump of breast, right ICD-9: 611.72 09/11 Lump on neck ICD-9: 784.2 09/11/2012 Encounter for monitoring digoxin therapy ICD-9: V58.83 07/15/2012 Immunization, pneumococcus and influenza ICD-9: V06.6 03/26/2012 Gastritis ICD-9: 535.50 10/25/2011 ANEMIA ICD-9: 285.9 10/25/2011 Anemia associated with acute blood loss ICD-9: 285.1 10/11/2011 Gastritis, acute with hemorrhage ICD-9: 535.01 10/11/2011 Abdominal pain ICD-9: 789.00 10/04/2011 Hematochezia ICD-9: 578.1 10/04/2011 Coronary artery disease ICD-9: 414.00 Arthralgia ICD-9: 719.40 07/31/2011 Cervicalgia ICD-9: 723.1 07/31/2011 Muscle spasm ICD-9: 728.85 07/31/2011 MYALGIA AND MYOSITIS ICD-9: 729.1 2011 ACUTE SINUSITIS ICD-9: 461.9 05/22/2011 Reason For Visit Reason For Visit Effective Dates Notes back pain 05/29/2017 back pain 05/14/2017 vaccination against influenza 04/30/2017 diabetes mellitus 03/06/2017 Hospital Follow Up 11/01/2016 cough 10/18/2016 cough 10/12/2016 diabetes mellitus 09/04/2016 edema 05/30/2016 diabetes mellitus 05/01/2016 mole check 02/29/2016 sinus congestion 02/03/2016 diabetes mellitus 12/21/2015 shortness of breath 10/25/2015 shortness of breath 10/19/2015 diabetes mellitus 06/22/2015 diabetes mellitus 12/22/2014 diabetes mellitus 08/17/2014 diabetes mellitus 04/13/2014 diabetes mellitus 12/11/2013 diabetes mellitus 11/10/2013 sore throat 08/11/2013 diabetes mellitus 05/12/2013 diabetes mellitus 01/06/2013 diabetes mellitus 10/07/2012 diabetes mellitus 09/11/2012 fatigue 07/15/2012 blood pressure followup 05/02/2012 hypertension 03/28/2012 vaccination against influenza 03/26/2012 hypertension 11/27/2011 anemia 10/25/2011 anemia 10/11/2011 fatigue 10/04/2011 diabetes mellitus 09/25/2011 neck pain 07/31/2011 pt states that it radiates from the left sidce of her neck to her left shoulder and up into her head and face neck pain 05/22/2011 Green drainage diabetes mellitus 05/05/2011 has questions about meds - getting leg cramps and neck pain - pt stopped taking her med 1 week ago Results Observation Observation Code Item Item Code Result Date MEAN GLUC 2144814 Calc Mean Gluc 169 mg/dL 02/28/2017 CBC 0216062 WBC 7.6 10e9/L 02/28/2017 CBC 8421755 RBC 4.91 10e12/L 02/28/2017 CBC 6485918 HEMOGLOBIN 13.2 g/dL 02/28/2017 CBC 0219814 HEMATOCRIT 42.7 % 02/28/2017 CBC 3267004 MCV 87.0 fL 02/28/2017 CBC 4014184 MCH 26.9 pg 02/28/2017 CBC 7048345 MCHC 30.9 g/dL 02/28/2017 CBC 9675676 PLATELET COUNT 341 10e9/L 02/28/2017 CBC 8660121 Mean Plt Volume 10.7 fL 02/28/2017 CBC 7198477 Neut Auto 62.1 % 02/28/2017 CBC 2212423 Lymph Auto 20.2 % 02/28/2017 CBC 6906197 [place] Auto 9.3 % 02/28/2017 CBC 0245047 Eos Auto 7.1 % 02/28/2017 CBC 1403558 RDW 15.8 % 02/28/2017 CBC 0851038 Baso Auto 1.3 % 02/28/2017 CBC 6567167 Neutrophil Abs 4.72 10e9/L 02/28/2017 CBC 5212583 Lymphocyte Abs 1.54 10e9/L 02/28/2017 CBC 7108857 Monocyte Abs 0.71 10e9/L 02/28/2017 CBC 0538304 Eosinophil Abs 0.54 10e9/L 02/28/2017 CBC 2186868 RDW-SD 49.0 fL 02/28/2017 CBC 7502932 Basophil Abs 0.10 10e9/L 02/28/2017 A1C HPLC 6276085 Hgb A1c 07513-6 7.5 % 02/28/2017 GFR CALC 4395863 GFR Non Afr Amr >60 mL/min 02/28/2017 GFR CALC 4662403 GFR Afr Amr >60 mL/min 02/28/2017 CHEM 14 5746091 AST 15 U/L 02/28/2017 CHEM 14 3608933 ALT 16 U/L 02/28/2017 CHEM 14 6187354 BUN 18 mg/dL 02/28/2017 CHEM 14 9581965 ALBUMIN 4.0 g/dL 02/28/2017 CHEM 14 9144185 CHLORIDE 104 mmol/L 02/28/2017 CHEM 14 2359436 Bili Total 0.6 mg/dL 02/28/2017 CHEM 14 1336224 ALK PHOS 53 U/L 02/28/2017 CHEM 14 6505265 SODIUM 143 mmol/L 02/28/2017 CHEM 14 5681479 CREATININE 0.66 mg/dL 02/28/2017 CHEM 14 7279617 CALCIUM 9.2 mg/dL 02/28/2017 CHEM 14 6448632 POTASSIUM 3.9 mmol/L 02/28/2017 CHEM 14 1504488 TOTAL PROTEIN 6.6 g/dL 02/28/2017 CHEM 14 3637719 GLUCOSE 146 mg/dL 02/28/2017 CHEM 14 2237752 Bicarbonate 30 mmol/L 02/28/2017 CHEM 14 6780946 AGAP 9 mmol/L 02/28/2017 LIPID GRP CHOLESTEROL 189 mg/dL 02/28/2017 LIPID GRP Triglyceride 124 mg/dL 02/28/2017 LIPID GRP HDL CHOLESTEROL 43 mg/dL 02/28/2017 LIPID GRP Chol/HDL Ratio 4.40 ratio 02/28/2017 LIPID GRP NON-HDL Chol 146 mg/dL 02/28/2017 LIPID GRP LDL Cholesterol 121 mg/dL 02/28/2017 FREE T4 8804976 T4 Free 1.39 ng/dL 08/21/2016 CHEM 14 8315965 AST 16 U/L 08/21/2016 CHEM 14 9412033 ALT 14 U/L 08/21/2016 CHEM 14 7101879 BUN 14 mg/dL 08/21/2016 CHEM 14 8558698 ALBUMIN 4.1 g/dL 08/21/2016 CHEM 14 2518530 CHLORIDE 105 mmol/L 08/21/2016 CHEM 14 6676590 Bili Total 0.5 mg/dL 08/21/2016 CHEM 14 3736901 ALK PHOS 53 U/L 08/21/2016 CHEM 14 7841800 SODIUM 141 mmol/L 08/21/2016 CHEM 14 9877982 CREATININE 0.66 mg/dL 08/21/2016 CHEM 14 7323403 CALCIUM 9.3 mg/dL 08/21/2016 CHEM 14 5057508 POTASSIUM 4.0 mmol/L 08/21/2016 CHEM 14 0142106 TOTAL PROTEIN 6.6 g/dL 08/21/2016 CHEM 14 4537940 GLUCOSE 145 mg/dL 08/21/2016 CHEM 14 1813605 Bicarbonate 29 mmol/L 08/21/2016 CHEM 14 7278067 AGAP 7 mmol/L 08/21/2016 GFR CALC 7842846 GFR Non Afr Amr >60 mL/min 08/21/2016 GFR CALC 0314582 GFR Afr Amr >60 mL/min 08/21/2016 A1C HPLC 5677741 Hgb A1c 03851-3 7.4 % 08/21/2016 LIPID GRP CHOLESTEROL 211 mg/dL 08/21/2016 LIPID GRP Triglyceride 105 mg/dL 08/21/2016 LIPID GRP HDL CHOLESTEROL 45 mg/dL 08/21/2016 LIPID GRP Chol/HDL Ratio 4.69 ratio 08/21/2016 LIPID GRP NON-HDL Chol 166 mg/dL 08/21/2016 LIPID GRP LDL Cholesterol 145 mg/dL 08/21/2016 MEAN GLUC 1947378 Calc Mean Gluc 166 mg/dL 08/21/2016 TSH 0703683 TSH 1.485 uIU/mL 08/21/2016 CBC 8382848 WBC 6.8 10e9/L 08/21/2016 CBC 4335742 RBC 4.87 10e12/L 08/21/2016 CBC 1888925 HEMOGLOBIN 12.7 g/dL 08/21/2016 CBC 5985123 HEMATOCRIT 40.5 % 08/21/2016 CBC 2812647 MCV 83.2 fL 08/21/2016 CBC 1708190 MCH 26.1 pg 08/21/2016 CBC 2868045 MCHC 31.4 g/dL 08/21/2016 CBC 7052672 PLATELET COUNT 334 10e9/L 08/21/2016 CBC 6005321 Mean Plt Volume 10.5 fL 08/21/2016 CBC 9456085 Neut Auto 56.4 % 08/21/2016 CBC 6167818 Lymph Auto 23.5 % 08/21/2016 CBC 7033611 [place] Auto 9.7 % 08/21/2016 CBC 0235362 Eos Auto 9.5 % 08/21/2016 CBC 2716089 RDW 16.6 % 08/21/2016 CBC 8433247 Baso Auto 0.9 % 08/21/2016 CBC 6148054 Neutrophil Abs 3.84 10e9/L 08/21/2016 CBC 9269164 Lymphocyte Abs 1.60 10e9/L 08/21/2016 CBC 9738948 Monocyte Abs 0.66 10e9/L 08/21/2016 CBC 1961458 Eosinophil Abs 0.65 10e9/L 08/21/2016 CBC 4910102 Basophil Abs 0.06 10e9/L 08/21/2016 CBC 3038862 RDW-SD 49.7 fL 08/21/2016 Lipid Ord30 CHOL 208 mg/dL 04/24/2016 Lipid Ord30 HDL 42.0 mg/dl 04/24/2016 Lipid Ord30 TRIG 98 mg/dL 04/24/2016 Lipid Ord30 LDL 146 mg/dL 04/24/2016 Lipid Ord30 C/HDL 5.0 Ratio 04/24/2016 %Hba1C Pxm451 % HbA1c 73383-5 7.5 % 04/24/2016 %Hba1C Nij412 Gluc Ave 169 mg/dL 04/24/2016 Tsh Ord6 hTSH II 0.82 uIU/mL 04/24/2016 Free T4 Swp169 FREE T4 1.17 ng/dL 04/24/2016 Comp Metabolic Ipj438 NA 138 mEq/L 04/24/2016 Comp Metabolic Rhb971 K 4.3 mEq/L 04/24/2016 Comp Metabolic Koa965 CL 103 mEq/L 04/24/2016 Comp Metabolic Wtj414 CO2 28.0 mEq/L 04/24/2016 Comp Metabolic Lwd211 ANION GAP 11 04/24/2016 Comp Metabolic Iji879 GLUCOSE 138 mg/dL 04/24/2016 Comp Metabolic Wmp095 Creat 0.6 mg/dL 04/24/2016 Comp Metabolic Czm230 eGFR 98 ml/min/1.73m2 04/24/2016 Comp Metabolic Roq075 BUN 16 mg/dL 04/24/2016 Comp Metabolic Qsu949 B/C Ratio 25.4 Ratio 04/24/2016 Comp Metabolic Nwe815 CALCIUM 9.2 mg/dL 04/24/2016 Comp Metabolic Htk699 ALK PHOS 55 U/L 04/24/2016 Comp Metabolic Fys812 AST(SGOT) 16 U/L 04/24/2016 Comp Metabolic Jhe807 ALT(SGPT) 16 U/L 04/24/2016 Comp Metabolic Deo427 BILI T 0.6 mg/dL 04/24/2016 Comp Metabolic Ofm438 ALBUMIN 3.9 g/dL 04/24/2016 Comp Metabolic Ffq439 TPRO 6.1 g/dL 04/24/2016 Comp Metabolic Hwt967 GLOB 2.2 g/dL 04/24/2016 Comp Metabolic Nth579 A/G Ratio 1.7 Ratio 04/24/2016 Comp Metabolic Cmm216 Osmo 279 mOsmo 04/24/2016 Cbc With Differential Ord2 WBC 6.53 K/ul 04/24/2016 Cbc With Differential Ord2 RBC 4.73 M/ul 04/24/2016 Cbc With Differential Ord2 HGB 12.0 g/dl 04/24/2016 Cbc With Differential Ord2 HCT 38.9 % 04/24/2016 Cbc With Differential Ord2 Neut% 55.1 % 04/24/2016 Cbc With Differential Ord2 Lymph% 22.8 % 04/24/2016 Cbc With Differential Ord2 MCV 82.2 fl 04/24/2016 Cbc With Differential Ord2 MCH 25.4 pg 04/24/2016 Cbc With Differential Ord2 [place]% 10.9 % 04/24/2016 Cbc With Differential Ord2 MCHC 30.8 pg 04/24/2016 Cbc With Differential Ord2 Eos% 10.0 % 04/24/2016 Cbc With Differential Ord2 PLT 338 K/ul 04/24/2016 Cbc With Differential Ord2 Baso% 1.2 % 04/24/2016 Cbc With Differential Ord2 Neut ABS# 3.60 K/ul 04/24/2016 Cbc With Differential Ord2 RDW 16.7 % 04/24/2016 Cbc With Differential Ord2 Lymph ABS# 1.49 K/ul 04/24/2016 Cbc With Differential Ord2 [place] ABS# 0.7 K/ul 04/24/2016 Cbc With Differential Ord2 Eos ABS# 0.7 K/ul 04/24/2016 Cbc With Differential Ord2 Baso ABS# 0.1 K/ul 04/24/2016 Digoxin Ord9 DIGOXIN 0.9 NG/ML 02/03/2016 Free T4 Lpn346 FREE T4 1.17 ng/dL 12/07/2015 %Hba1C Ako416 % HbA1c 31217-5 7.5 % 12/07/2015 %Hba1C Isy351 Gluc Ave 169 mg/dL 12/07/2015 Tsh Ord6 hTSH II 0.90 uIU/mL 12/07/2015 Lipid Ord30 CHOL 196 mg/dL 12/07/2015 Lipid Ord30 HDL 41.0 mg/dl 12/07/2015 Lipid Ord30 TRIG 142 mg/dL 12/07/2015 Lipid Ord30 LDL 127 mg/dL 12/07/2015 Lipid Ord30 C/HDL 4.8 Ratio 12/07/2015 Cbc With Differential Ord2 WBC 7.43 K/ul 12/07/2015 Cbc With Differential Ord2 RBC 4.70 M/ul 12/07/2015 Cbc With Differential Ord2 HGB 12.0 g/dl 12/07/2015 Cbc With Differential Ord2 Neut% 69.5 % 12/07/2015 Cbc With Differential Ord2 HCT 39.1 % 12/07/2015 Cbc With Differential Ord2 MCV 83.2 fl 12/07/2015 Cbc With Differential Ord2 Lymph% 16.6 % 12/07/2015 Cbc With Differential Ord2 MCH 25.5 pg 12/07/2015 Cbc With Differential Ord2 [place]% 9.3 % 12/07/2015 Cbc With Differential Ord2 Eos% 3.9 % 12/07/2015 Cbc With Differential Ord2 MCHC 30.7 pg 12/07/2015 Cbc With Differential Ord2 Baso% 0.7 % 12/07/2015 Cbc With Differential Ord2 PLT 346 K/ul 12/07/2015 Cbc With Differential Ord2 RDW 16.9 % 12/07/2015 Cbc With Differential Ord2 Neut ABS# 5.17 K/ul 12/07/2015 Cbc With Differential Ord2 Lymph ABS# 1.23 K/ul 12/07/2015 Cbc With Differential Ord2 [place] ABS# 0.7 K/ul 12/07/2015 Cbc With Differential Ord2 Eos ABS# 0.3 K/ul 12/07/2015 Cbc With Differential Ord2 Baso ABS# 0.1 K/ul 12/07/2015 Comp Metabolic Hsp264 NA 139 mEq/L 12/07/2015 Comp Metabolic Lar375 K 4.3 mEq/L 12/07/2015 Comp Metabolic Mdh271 CL 101 mEq/L 12/07/2015 Comp Metabolic Evz121 CO2 33.0 mEq/L 12/07/2015 Comp Metabolic Jjt698 ANION GAP 9 12/07/2015 Comp Metabolic Xjp558 GLUCOSE 159 mg/dL 12/07/2015 Comp Metabolic Rco509 Creat 0.6 mg/dL 12/07/2015 Comp Metabolic Dlm093 eGFR 108 ml/min/1.73m2 12/07/2015 Comp Metabolic Obs299 BUN 13 mg/dL 12/07/2015 Comp Metabolic Jwr360 B/C Ratio 22.4 Ratio 12/07/2015 Comp Metabolic Dku612 CALCIUM 9.0 mg/dL 12/07/2015 Comp Metabolic Zrs928 ALK PHOS 60 U/L 12/07/2015 Comp Metabolic Xdr089 AST(SGOT) 16 U/L 12/07/2015 Comp Metabolic Pzh854 ALT(SGPT) 19 U/L 12/07/2015 Comp Metabolic Rje635 BILI T 0.6 mg/dL 12/07/2015 Comp Metabolic Qyo782 ALBUMIN 4.0 g/dL 12/07/2015 Comp Metabolic Xbu210 TPRO 6.0 g/dL 12/07/2015 Comp Metabolic Djq407 GLOB 2.0 g/dL 12/07/2015 Comp Metabolic Vpu110 A/G Ratio 1.9 Ratio 12/07/2015 Comp Metabolic Tdw677 Osmo 281 mOsmo 12/07/2015 %Hba1C Rmq784 % HbA1c 19559-6 6.8 % 06/14/2015 %Hba1C Rjm330 Gluc Ave 148 mg/dL 06/14/2015 Cbc With Differential Ord2 WBC 5.8 K/uL 06/14/2015 Cbc With Differential Ord2 LYM 1.4 K/uL 06/14/2015 Cbc With Differential Ord2 LYM% 24.5 % 06/14/2015 Cbc With Differential Ord2 NEUT/GRAN 3.9 K/uL 06/14/2015 Cbc With Differential Ord2 NEUT/GRAN % 67.8 % 06/14/2015 Cbc With Differential Ord2 MID 0.4 K/uL 06/14/2015 Cbc With Differential Ord2 MID% 7.7 % 06/14/2015 Cbc With Differential Ord2 RBC 4.58 M/uL 06/14/2015 Cbc With Differential Ord2 HGB 11.4 g/dL 06/14/2015 Cbc With Differential Ord2 HCT 38.1 % 06/14/2015 Cbc With Differential Ord2 MCV 83 fL 06/14/2015 Cbc With Differential Ord2 MCH 25 pg 06/14/2015 Cbc With Differential Ord2 MCHC 30 g/dL 06/14/2015 Cbc With Differential Ord2 PLT 329 K/uL 06/14/2015 Cbc With Differential Ord2 RDW 18.7 % 06/14/2015 Tsh Ord6 hTSH II 1.10 uIU/mL 06/14/2015 Free T4 Vhq586 FREE T4 1.31 ng/dL 06/14/2015 CHEM 14 8043593 AST 14 U/L 12/07/2014 CHEM 14 4295553 ALT 12 IU/L 12/07/2014 CHEM 14 4912598 BUN 12 MG/DL 12/07/2014 CHEM 14 8295899 ALBUMIN 3.9 GM/DL 12/07/2014 CHEM 14 3883748 CHLORIDE 103 MMOL/L 12/07/2014 CHEM 14 7301926 BILI TOT 0.6 MG/DL 12/07/2014 CHEM 14 1450449 ALK PHOS 49 U/L 12/07/2014 CHEM 14 2535612 SODIUM 140 MMOL/L 12/07/2014 CHEM 14 6175410 CREATININE 0.57 MG/DL 12/07/2014 CHEM 14 2204502 CALCIUM 9.5 MG/DL 12/07/2014 CHEM 14 8701072 POTASSIUM 4.0 MMOL/L 12/07/2014 CHEM 14 3975073 PROT TOT 6.5 GM/DL 12/07/2014 CHEM 14 8924238 GLUCOSE 110 MG/DL 12/07/2014 CHEM 14 9366220 BICARB 29 MMOL/L 12/07/2014 CHEM 14 1847777 ANION GAP 8 MEQ/L 12/07/2014 TSH 3970474 TSH 1.106 uIU/ML 12/07/2014 LIPID GRP HDL TEST 46 MG/DL 12/07/2014 LIPID GRP TRIG 119 MG/DL 12/07/2014 LIPID GRP TEST LDL 108 MG/DL 12/07/2014 LIPID GRP CHOL 178 MG/DL 12/07/2014 LIPID GRP RCHOL/HDL 3.87 RATIO 12/07/2014 LIPID GRP NON-HDL CH 132 MG/DL 12/07/2014 CBC 9402414 WBC 6.4 10e9/L 12/07/2014 CBC 8628367 RBC 4.51 10e12/L 12/07/2014 CBC 6443575 HGB 12.2 g/dL 12/07/2014 CBC 7422676 HCT DET 39.0 % 12/07/2014 CBC 1487728 MCV 86.5 fL 12/07/2014 CBC 2444113 MCH 27.1 pg 12/07/2014 CBC 3005680 MCHC 31.3 g/dL 12/07/2014 CBC 9289132 PLT 325 10e9/L 12/07/2014 CBC 6900986 MPV 10.4 fL 12/07/2014 CBC 4190000 TIM % 62.0 % 12/07/2014 CBC 8464410 LY % 21.4 % 12/07/2014 CBC 6137195 MON % 9.5 % 12/07/2014 CBC 6908204 EOS % 6.3 % 12/07/2014 CBC 8183422 BASO % 0.8 % 12/07/2014 CBC 9494253 RDW 15.8 % 12/07/2014 CBC 8464135 ABS TIM 3.97 10e9/L 12/07/2014 CBC 3494278 ABS LYMPH 1.37 10e9/L 12/07/2014 CBC 1082272 ABS MONO 0.61 10e9/L 12/07/2014 CBC 8185276 ABS EOS 0.40 10e9/L 12/07/2014 CBC 1641047 ABS BASO 0.05 10e9/L 12/07/2014 CBC 0463011 RDW-SD 48.8 fL 12/07/2014 FREE T4 7973829 FREE T4 1.37 NG/DL 12/07/2014 A1C HPLC 7030495 A1C HPLC 13533-9 6.4 % 12/07/2014 GFR CALC 6989698 GFR AA >60 ML/MIN 12/07/2014 GFR CALC 0231829 GFR NON-AA >60 ML/MIN 12/07/2014 CHEM 14 4271217 AST 17 U/L 11/04/2013 CHEM 14 8792642 ALT 16 IU/L 11/04/2013 CHEM 14 6301592 BUN 13 MG/DL 11/04/2013 CHEM 14 8784034 ALBUMIN 4.3 GM/DL 11/04/2013 CHEM 14 8772682 CHLORIDE 104 MMOL/L 11/04/2013 CHEM 14 4646036 BILI TOT 0.7 MG/DL 11/04/2013 CHEM 14 3908690 ALK PHOS 67 U/L 11/04/2013 CHEM 14 4041906 SODIUM 140 MMOL/L 11/04/2013 CHEM 14 2532263 CREATININE 0.64 MG/DL 11/04/2013 CHEM 14 6688551 CALCIUM 9.5 MG/DL 11/04/2013 CHEM 14 1979194 POTASSIUM 4.0 MMOL/L 11/04/2013 CHEM 14 6191716 PROT TOT 6.1 GM/DL 11/04/2013 CHEM 14 0451410 GLUCOSE 157 MG/DL 11/04/2013 CHEM 14 9360522 BICARB 27 MMOL/L 11/04/2013 CHEM 14 7387937 ANION GAP 9 MEQ/L 11/04/2013 FREE T4 4175127 FREE T4 1.44 NG/DL 11/04/2013 CBC 1724937 WBC 6.2 10e9/L 11/04/2013 CBC 7219318 RBC 4.38 10e12/L 11/04/2013 CBC 9727954 HGB 11.8 g/dL 11/04/2013 CBC 5486601 HCT DET 37.5 % 11/04/2013 CBC 8424832 MCV 85.6 fL 11/04/2013 CBC 7096016 MCH 26.9 pg 11/04/2013 CBC 0539996 MCHC 31.5 g/dL 11/04/2013 CBC 8730877 PLT 330 10e9/L 11/04/2013 CBC 4458771 MPV 10.6 fL 11/04/2013 CBC 1439847 TIM % 60.8 % 11/04/2013 CBC 6075616 LY % 22.1 % 11/04/2013 CBC 8595120 MON % 9.6 % 11/04/2013 CBC 3677402 EOS % 6.4 % 11/04/2013 CBC 8658858 BASO % 1.1 % 11/04/2013 CBC 7987673 RDW 15.6 % 11/04/2013 CBC 6064922 ABS TIM 3.77 10e9/L 11/04/2013 CBC 4499503 ABS LYMPH 1.37 10e9/L 11/04/2013 CBC 0271373 ABS MONO 0.60 10e9/L 11/04/2013 CBC 6697453 ABS EOS 0.40 10e9/L 11/04/2013 CBC 8205979 ABS BASO 0.07 10e9/L 11/04/2013 CBC 0981813 RDW-SD 48.0 fL 11/04/2013 DIGOXIN 6027715 DIGOXIN 0.5 NG/ML 11/04/2013 GFR CALC 4577060 GFR AA >60 ML/MIN 11/04/2013 GFR CALC 1294297 GFR NON-AA >60 ML/MIN 11/04/2013 TSH 6933996 TSH 0.841 uIU/ML 11/04/2013 A1C HPLC 0990589 A1C HPLC 02837-7 7.2 % 11/04/2013 LIPID GRP HDL TEST 45 MG/DL 11/04/2013 LIPID GRP TRIG 104 MG/DL 11/04/2013 LIPID GRP TEST LDL 82 MG/DL 11/04/2013 LIPID GRP CHOL 148 MG/DL 11/04/2013 LIPID GRP RCHOL/HDL 3.29 RATIO 11/04/2013 LIVER PNL 1620913 BILI DIR 0.2 MG/DL 07/28/2013 DIGOXIN 2676987 DIGOXIN 0.4 NG/ML 07/28/2013 CBC 1804304 WBC 7.2 10e9/L 07/28/2013 CBC 7090013 RBC 4.65 10e12/L 07/28/2013 CBC 6405801 HGB 12.6 g/dL 07/28/2013 CBC 4643917 HCT DET 39.6 % 07/28/2013 CBC 8138044 MCV 85.2 fL 07/28/2013 CBC 7642650 MCH 27.1 pg 07/28/2013 CBC 3929507 MCHC 31.8 g/dL 07/28/2013 CBC 2182537 PLT 344 10e9/L 07/28/2013 CBC 8686734 MPV 10.7 fL 07/28/2013 CBC 7074700 TIM % 61.4 % 07/28/2013 CBC 3872736 LY % 22.4 % 07/28/2013 CBC 2461134 MON % 8.4 % 07/28/2013 CBC 9532666 EOS % 6.8 % 07/28/2013 CBC 7452965 BASO % 1.0 % 07/28/2013 CBC 7193102 RDW 15.5 % 07/28/2013 CBC 8614901 ABS TIM 4.42 10e9/L 07/28/2013 CBC 8718265 ABS LYMPH 1.61 10e9/L 07/28/2013 CBC 0598580 ABS MONO 0.60 10e9/L 07/28/2013 CBC 0824318 ABS EOS 0.49 10e9/L 07/28/2013 CBC 3470664 ABS BASO 0.07 10e9/L 07/28/2013 CBC 0924575 RDW-SD 47.2 fL 07/28/2013 CHEM 14 9626754 AST 20 U/L 07/28/2013 CHEM 14 8306811 ALT 19 IU/L 07/28/2013 CHEM 14 8812396 BUN 13 MG/DL 07/28/2013 CHEM 14 8209962 ALBUMIN 4.1 GM/DL 07/28/2013 CHEM 14 5355245 CHLORIDE 102 MMOL/L 07/28/2013 CHEM 14 2418474 BILI TOT 0.7 MG/DL 07/28/2013 CHEM 14 5771723 ALK PHOS 62 U/L 07/28/2013 CHEM 14 1591947 SODIUM 139 MMOL/L 07/28/2013 CHEM 14 9179312 CREATININE 0.66 MG/DL 07/28/2013 CHEM 14 6585849 CALCIUM 9.3 MG/DL 07/28/2013 CHEM 14 3192255 POTASSIUM 4.4 MMOL/L 07/28/2013 CHEM 14 9894777 PROT TOT 6.2 GM/DL 07/28/2013 CHEM 14 5421674 GLUCOSE 160 MG/DL 07/28/2013 CHEM 14 1445454 BICARB 29 MMOL/L 07/28/2013 CHEM 14 2941597 ANION GAP 8 MEQ/L 07/28/2013 LIPID GRP HDL TEST 38 MG/DL 07/28/2013 LIPID GRP TRIG 137 MG/DL 07/28/2013 LIPID GRP TEST LDL 73 MG/DL 07/28/2013 LIPID GRP CHOL 138 MG/DL 07/28/2013 LIPID GRP RCHOL/HDL 3.63 RATIO 07/28/2013 A1C HPLC 5686857 A1C HPLC 31593-3 7.6 % 07/28/2013 GFR CALC 9990594 GFR AA >60 ML/MIN 07/28/2013 GFR CALC 3624579 GFR NON-AA >60 ML/MIN 07/28/2013 DIGOXIN 6570008 DIGOXIN 0.6 NG/ML 05/12/2013 GFR CALC 5424841 GFR AA >60 ML/MIN 04/29/2013 GFR CALC 3963353 GFR NON-AA >60 ML/MIN 04/29/2013 TSH 5353616 TSH 1.161 uIU/ML 04/29/2013 CHEM 14 7372110 AST 14 U/L 04/29/2013 CHEM 14 1541567 ALT 14 IU/L 04/29/2013 CHEM 14 7837718 BUN 13 MG/DL 04/29/2013 CHEM 14 9900543 ALBUMIN 4.1 GM/DL 04/29/2013 CHEM 14 1210565 CHLORIDE 102 MMOL/L 04/29/2013 CHEM 14 3130496 BILI TOT 0.7 MG/DL 04/29/2013 CHEM 14 4430094 ALK PHOS 75 U/L 04/29/2013 CHEM 14 9883609 SODIUM 139 MMOL/L 04/29/2013 CHEM 14 4531777 CREATININE 0.62 MG/DL 04/29/2013 CHEM 14 8270350 CALCIUM 9.3 MG/DL 04/29/2013 CHEM 14 6690941 POTASSIUM 4.0 MMOL/L 04/29/2013 CHEM 14 6964617 PROT TOT 6.5 GM/DL 04/29/2013 CHEM 14 6109068 GLUCOSE 152 MG/DL 04/29/2013 CHEM 14 1934726 BICARB 31 MMOL/L 04/29/2013 CHEM 14 2860255 ANION GAP 6 MEQ/L 04/29/2013 CBC 4720257 WBC 7.4 10e9/L 04/29/2013 CBC 5537039 RBC 4.70 10e12/L 04/29/2013 CBC 3473155 HGB 12.8 g/dL 04/29/2013 CBC 0783052 HCT DET 40.1 % 04/29/2013 CBC 9318806 MCV 85.3 fL 04/29/2013 CBC 8824279 MCH 27.2 pg 04/29/2013 CBC 2695675 MCHC 31.9 g/dL 04/29/2013 CBC 0373717 PLT 312 10e9/L 04/29/2013 CBC 3197372 MPV 10.4 fL 04/29/2013 CBC 4752862 TIM % 64.9 % 04/29/2013 CBC 6931044 LY % 20.0 % 04/29/2013 CBC 3040084 MON % 8.6 % 04/29/2013 CBC 7570500 EOS % 5.3 % 04/29/2013 CBC 8990154 BASO % 1.2 % 04/29/2013 CBC 6103010 RDW 15.4 % 04/29/2013 CBC 2691821 ABS TIM 4.80 10e9/L 04/29/2013 CBC 5279720 ABS LYMPH 1.48 10e9/L 04/29/2013 CBC 5999327 ABS MONO 0.64 10e9/L 04/29/2013 CBC 9492849 ABS EOS 0.39 10e9/L 04/29/2013 CBC 5489413 ABS BASO 0.09 10e9/L 04/29/2013 CBC 7932674 RDW-SD 47.3 fL 04/29/2013 LIPID GRP HDL TEST 43 MG/DL 04/29/2013 LIPID GRP TRIG 111 MG/DL 04/29/2013 LIPID GRP TEST LDL 65 MG/DL 04/29/2013 LIPID GRP CHOL 130 MG/DL 04/29/2013 LIPID GRP RCHOL/HDL 3.02 RATIO 04/29/2013 A1C 6173409 A1C HPLC 77974-4 7.5 % 04/29/2013 A1C 9981521 A1C HPLC 15678-9 7.2 % 12/28/2012 TSH 8536887 TSH 1.406 uIU/ML 12/28/2012 CHEM 14 4479846 AST 14 U/L 12/27/2012 CHEM 14 0705124 ALT 13 IU/L 12/27/2012 CHEM 14 5409602 BUN 13 MG/DL 12/27/2012 CHEM 14 6160605 ALBUMIN 4.5 GM/DL 12/27/2012 CHEM 14 8555906 CHLORIDE 105 MMOL/L 12/27/2012 CHEM 14 2389873 BILI TOT 0.8 MG/DL 12/27/2012 CHEM 14 3597250 ALK PHOS 69 U/L 12/27/2012 CHEM 14 3804414 SODIUM 142 MMOL/L 12/27/2012 CHEM 14 1786818 CREATININE 0.73 MG/DL 12/27/2012 CHEM 14 8491907 CALCIUM 9.7 MG/DL 12/27/2012 CHEM 14 1698133 POTASSIUM 4.1 MMOL/L 12/27/2012 CHEM 14 4979637 PROT TOT 6.8 GM/DL 12/27/2012 CHEM 14 4454848 GLUCOSE 133 MG/DL 12/27/2012 CHEM 14 1949448 BICARB 30 MMOL/L 12/27/2012 CHEM 14 7550325 ANION GAP 7 MEQ/L 12/27/2012 CBC 3182700 WBC 6.8 10e9/L 12/27/2012 CBC 3067201 RBC 4.72 10e12/L 12/27/2012 CBC 2618709 HGB 12.5 g/dL 12/27/2012 CBC 8978206 HCT DET 39.6 % 12/27/2012 CBC 0698075 MCV 83.9 fL 12/27/2012 CBC 8702801 MCH 26.5 pg 12/27/2012 CBC 3180602 MCHC 31.6 g/dL 12/27/2012 CBC 8696015 PLT 336 10e9/L 12/27/2012 CBC 9874746 MPV 10.4 fL 12/27/2012 CBC 4171121 TIM % 60.7 % 12/27/2012 CBC 8628224 LY % 24.6 % 12/27/2012 CBC 5997259 MON % 8.4 % 12/27/2012 CBC 8075334 EOS % 5.3 % 12/27/2012 CBC 3209773 BASO % 1.0 % 12/27/2012 CBC 6685999 RDW 16.6 % 12/27/2012 CBC 5199851 ABS TIM 4.13 10e9/L 12/27/2012 CBC 7485962 ABS LYMPH 1.67 10e9/L 12/27/2012 CBC 8847142 ABS MONO 0.57 10e9/L 12/27/2012 CBC 6012420 ABS EOS 0.36 10e9/L 12/27/2012 CBC 4615239 ABS BASO 0.07 10e9/L 12/27/2012 CBC 0264688 RDW-SD 50.1 fL 12/27/2012 LIPID GRP HDL TEST 54 MG/DL 12/27/2012 LIPID GRP TRIG 94 MG/DL 12/27/2012 LIPID GRP TEST LDL 42 MG/DL 12/27/2012 LIPID GRP CHOL 115 MG/DL 12/27/2012 LIPID GRP RCHOL/HDL 2.13 RATIO 12/27/2012 GFR CALC 0383672 GFR AA >60 ML/MIN 12/27/2012 GFR CALC 1440170 GFR NON-AA >60 ML/MIN 12/27/2012 CBC 6924076 WBC 7.8 10e9/L 08/27/2012 CBC 3318207 RBC 4.54 10e12/L 08/27/2012 CBC 6347197 HGB 12.0 g/dL 08/27/2012 CBC 8545253 HCT DET 37.9 % 08/27/2012 CBC 9460523 MCV 83.5 fL 08/27/2012 CBC 8527324 MCH 26.4 pg 08/27/2012 CBC 0164959 MCHC 31.7 g/dL 08/27/2012 CBC 0772840 PLT 370 10e9/L 08/27/2012 CBC 5770254 MPV 10.7 fL 08/27/2012 CBC 0740266 TIM % 65.7 % 08/27/2012 CBC 7238992 LY % 19.5 % 08/27/2012 CBC 2893383 MON % 9.0 % 08/27/2012 CBC 1500219 EOS % 5.0 % 08/27/2012 CBC 0199145 BASO % 0.8 % 08/27/2012 CBC 0372568 RDW 15.4 % 08/27/2012 CBC 6972321 ABS TIM 5.12 10e9/L 08/27/2012 CBC 8366570 ABS LYMPH 1.52 10e9/L 08/27/2012 CBC 3369965 ABS MONO 0.70 10e9/L 08/27/2012 CBC 2533147 ABS EOS 0.39 10e9/L 08/27/2012 CBC 8944694 ABS BASO 0.06 10e9/L 08/27/2012 CBC 2071827 RDW-SD 46.3 fL 08/27/2012 A1C HPLC 4124706 A1C HPLC 60680-9 7.3 % 08/27/2012 LIPID GRP HDL TEST 41 MG/DL 08/27/2012 LIPID GRP TRIG 120 MG/DL 08/27/2012 LIPID GRP TEST LDL 67 MG/DL 08/27/2012 LIPID GRP CHOL 132 MG/DL 08/27/2012 LIPID GRP RCHOL/HDL 3.22 RATIO 08/27/2012 GFR CALC 8881876 GFR AA >60 ML/MIN 08/27/2012 GFR CALC 4695283 GFR NON-AA >60 ML/MIN 08/27/2012 CHEM 14 3184054 AST 15 U/L 08/27/2012 CHEM 14 2648985 ALT 17 IU/L 08/27/2012 CHEM 14 5793259 BUN 14 MG/DL 08/27/2012 CHEM 14 6432240 ALBUMIN 4.2 GM/DL 08/27/2012 CHEM 14 [id number] CHLORIDE 103 MMOL/L 08/27/2012 CHEM 14 [id number] BILI TOT 0.6 MG/DL 08/27/2012 CHEM 14 [id number] ALK PHOS 86 U/L 08/27/2012 CHEM 14 [id number] SODIUM 141 MMOL/L 08/27/2012 CHEM 14 [id number] CREATININE 0.64 MG/DL 08/27/2012 CHEM 14 [id number] CALCIUM 9.5 MG/DL 08/27/2012 CHEM 14 [id number] POTASSIUM 4.1 MMOL/L 08/27/2012 CHEM 14 [id number] PROT TOT 6.1 GM/DL 08/27/2012 CHEM 14 [id number] GLUCOSE 151 MG/DL 08/27/2012 CHEM 14 [id number] BICARB 30 MMOL/L 08/27/2012 CHEM 14 9351707 ANION GAP 8 MEQ/L 08/27/2012 TSH [id number] TSH 0.933 uIU/ML 08/27/2012 FREE T4 [id number] FREE T4 1.36 NG/DL 08/27/2012 CBC [id number] WBC 6.3 10e9/L 07/15/2012 CBC [id number] RBC 4.44 10e12/L 07/15/2012 CBC [id number] HGB 11.8 g/dL 07/15/2012 CBC [id number] HCT DET 36.9 % 07/15/2012 CBC [id number] MCV 83.1 fL 07/15/2012 CBC [id number] MCH 26.6 pg 07/15/2012 CBC [id number] MCHC 32.0 g/dL 07/15/2012 CBC [id number] PLT 316 10e9/L 07/15/2012 CBC [id number] MPV 10.3 fL 07/15/2012 CBC [id number] TIM % 64.4 % 07/15/2012 CBC [id number] LY % 19.6 % 07/15/2012 CBC [id number] MON % 9.1 % 07/15/2012 CBC [id number] EOS % 6.1 % 07/15/2012 CBC [id number] BASO % 0.8 % 07/15/2012 CBC [id number] RDW 15.3 % 07/15/2012 CBC [id number] ABS TIM 4.06 10e9/L 07/15/2012 CBC [id number] ABS LYMPH 1.23 10e9/L 07/15/2012 CBC [id number] ABS MONO 0.57 10e9/L 07/15/2012 CBC [id number] ABS EOS 0.38 10e9/L 07/15/2012 CBC [id number] ABS BASO 0.05 10e9/L 07/15/2012 CBC [id number] RDW-SD 46.2 fL 07/15/2012 DIGOXIN [id number] DIGOXIN 1.4 NG/ML 07/15/2012 BMP [id number] GLUCOSE 137 MG/DL 07/04/2012 BMP 1148052 CREATININE 0.86 MG/DL 07/04/2012 BMP 7684192 BUN 14 MG/DL 07/04/2012 BMP 5466841 SODIUM 140 MMOL/L 07/04/2012 BMP 8099647 POTASSIUM 4.5 MMOL/L 07/04/2012 BMP 5217080 CHLORIDE 103 MMOL/L 07/04/2012 BMP 2972462 BICARB 28 MMOL/L 07/04/2012 BMP 7286713 ANION GAP 9 MEQ/L 07/04/2012 BMP 7109451 CALCIUM 9.7 MG/DL 07/04/2012 GFR CALC 7277314 GFR AA >60 ML/MIN 07/04/2012 GFR CALC 8202794 GFR NON-AA >60 ML/MIN 07/04/2012 CBC [id number] WBC 6.9 10e9/L 07/04/2012 CBC [id number] RBC 4.56 10e12/L 07/04/2012 CBC [id number] HGB 12.2 g/dL 07/04/2012 CBC [id number] HCT DET 38.1 % 07/04/2012 CBC [id number] MCV 83.6 fL 07/04/2012 CBC [id number] MCH 26.8 pg 07/04/2012 CBC [id number] MCHC 32.0 g/dL 07/04/2012 CBC [id number] PLT 382 10e9/L 07/04/2012 CBC [id number] MPV 10.6 fL 07/04/2012 CBC [id number] TIM % 58.7 % 07/04/2012 CBC [id number] LY % 23.7 % 07/04/2012 CBC [id number] MON % 10.2 % 07/04/2012 CBC [id number] EOS % 6.4 % 07/04/2012 CBC [id number] BASO % 1.0 % 07/04/2012 CBC [id number] RDW 15.8 % 07/04/2012 CBC [id number] ABS TIM 4.05 10e9/L 07/04/2012 CBC [id number] ABS LYMPH 1.64 10e9/L 07/04/2012 CBC [id number] ABS MONO 0.70 10e9/L 07/04/2012 CBC [id number] ABS EOS 0.44 10e9/L 07/04/2012 CBC [id number] ABS BASO 0.07 10e9/L 07/04/2012 CBC [id number] RDW-SD 47.5 fL 07/04/2012 DIGOXIN 3882730 DIGOXIN 1.4 NG/ML 07/04/2012 A1C HPLC [id number] A1C HPLC 02144-1 7.1 % 03/27/2012 GFR CALC [id number] GFR AA >60 ML/MIN 03/26/2012 GFR CALC [id number] GFR NON-AA >60 ML/MIN 03/26/2012 LIPID GRP HDL TEST 40 MG/DL 03/26/2012 LIPID GRP TRIG 93 MG/DL 03/26/2012 LIPID GRP TEST LDL 62 MG/DL 03/26/2012 LIPID GRP CHOL 121 MG/DL 03/26/2012 LIPID GRP RCHOL/HDL 3.03 RATIO 03/26/2012 TSH [id number] TSH 0.842 uIU/ML 03/26/2012 FREE T4 5078817 FREE T4 1.30 NG/DL 03/26/2012 CBC [id number] WBC 5.3 10e9/L 03/26/2012 CBC [id number] RBC 4.70 10e12/L 03/26/2012 CBC [id number] HGB 12.1 g/dL 03/26/2012 CBC [id number] HCT DET 38.1 % 03/26/2012 CBC [id number] MCV 81.1 fL 03/26/2012 CBC [id number] MCH 25.7 pg 03/26/2012 CBC [id number] MCHC 31.8 g/dL 03/26/2012 CBC [id number] PLT 315 10e9/L 03/26/2012 CBC [id number] MPV 10.9 fL 03/26/2012 CBC [id number] TIM % 54.8 % 03/26/2012 CBC [id number] LY % 25.8 % 03/26/2012 CBC [id number] MON % 11.6 % 03/26/2012 CBC [id number] EOS % 7.0 % 03/26/2012 CBC [id number] BASO % 0.8 % 03/26/2012 CBC [id number] RDW 16.7 % 03/26/2012 CBC [id number] ABS TIM 2.90 10e9/L 03/26/2012 CBC [id number] ABS LYMPH 1.37 10e9/L 03/26/2012 CBC [id number] ABS MONO 0.61 10e9/L 03/26/2012 CBC [id number] ABS EOS 0.37 10e9/L 03/26/2012 CBC [id number] ABS BASO 0.04 10e9/L 03/26/2012 CBC [id number] RDW-SD 48.8 fL 03/26/2012 CHEM 14 [id number] AST 18 U/L 03/26/2012 CHEM 14 9340964 ALT 17 IU/L 03/26/2012 CHEM 14 2664947 BUN 16 MG/DL 03/26/2012 CHEM 14 0130131 ALBUMIN 4.3 GM/DL 03/26/2012 CHEM 14 [id number] CHLORIDE 103 MMOL/L 03/26/2012 CHEM 14 [id number] BILI TOT 0.9 MG/DL 03/26/2012 CHEM 14 4630669 ALK PHOS 79 U/L 03/26/2012 CHEM 14 [id number] SODIUM 140 MMOL/L 03/26/2012 CHEM 14 [id number] CREATININE 0.70 MG/DL 03/26/2012 CHEM 14 9812815 CALCIUM 9.6 MG/DL 03/26/2012 CHEM 14 [id number] POTASSIUM 4.1 MMOL/L 03/26/2012 CHEM 14 [id number] PROT TOT 6.3 GM/DL 03/26/2012 CHEM 14 [id number] GLUCOSE 142 MG/DL 03/26/2012 CHEM 14 [id number] BICARB 29 MMOL/L 03/26/2012 CHEM 14 3559492 ANION GAP 8 MEQ/L 03/26/2012 LIPID GRP HDL TEST 42 MG/DL 01/08/2012 LIPID GRP TRIG 105 MG/DL 01/08/2012 LIPID GRP TEST LDL 51 MG/DL 01/08/2012 LIPID GRP CHOL 114 MG/DL 01/08/2012 LIPID GRP RCHOL/HDL 2.71 RATIO 01/08/2012 CHEM 14 [id number] AST 24 U/L 01/08/2012 CHEM 14 3397737 ALT 28 IU/L 01/08/2012 CHEM 14 8095803 BUN 15 MG/DL 01/08/2012 CHEM 14 [id number] ALBUMIN 4.3 GM/DL 01/08/2012 CHEM 14 [id number] CHLORIDE 104 MMOL/L 01/08/2012 CHEM 14 [id number] BILI TOT 0.6 MG/DL 01/08/2012 CHEM 14 [id number] ALK PHOS 83 U/L 01/08/2012 CHEM 14 [id number] SODIUM 141 MMOL/L 01/08/2012 CHEM 14 [id number] CREATININE 0.64 MG/DL 01/08/2012 CHEM 14 7035455 CALCIUM 9.4 MG/DL 01/08/2012 CHEM 14 6591596 POTASSIUM 4.0 MMOL/L 01/08/2012 CHEM 14 9551344 PROT TOT 6.7 GM/DL 01/08/2012 CHEM 14 [id number] GLUCOSE 145 MG/DL 01/08/2012 CHEM 14 [id number] BICARB 28 MMOL/L 01/08/2012 CHEM 14 [id number] ANION GAP 9 MEQ/L 01/08/2012 GFR CALC 2532147 GFR AA >60 ML/MIN 01/08/2012 GFR CALC 1128765 GFR NON-AA >60 ML/MIN 01/08/2012 A1C HPLC [id number] A1C HPLC 65035-8 7.2 % 01/08/2012 CBC [id number] WBC 5.8 10e9/L 01/08/2012 CBC [id number] RBC 4.36 10e12/L 01/08/2012 CBC [id number] HGB 11.6 g/dL 01/08/2012 CBC [id number] HCT DET 37.4 % 01/08/2012 CBC [id number] MCV 85.8 fL 01/08/2012 CBC [id number] MCH 26.6 pg 01/08/2012 CBC [id number] MCHC 31.0 g/dL 01/08/2012 CBC [id number] PLT 319 10e9/L 01/08/2012 CBC [id number] MPV 10.5 fL 01/08/2012 CBC [id number] TIM % 62.2 % 01/08/2012 CBC [id number] LY % 20.7 % 01/08/2012 CBC [id number] MON % 9.3 % 01/08/2012 CBC [id number] EOS % 6.4 % 01/08/2012 CBC [id number] BASO % 1.4 % 01/08/2012 CBC [id number] RDW 14.9 % 01/08/2012 CBC [id number] ABS TIM 3.61 10e9/L 01/08/2012 CBC [id number] ABS LYMPH 1.20 10e9/L 01/08/2012 CBC [id number] ABS MONO 0.54 10e9/L 01/08/2012 CBC [id number] ABS EOS 0.37 10e9/L 01/08/2012 CBC [id number] ABS BASO 0.08 10e9/L 01/08/2012 CBC [id number] RDW-SD 44.9 fL 01/08/2012 Review of Systems System Result Effective Dates Constitutional recent illness 05/29/2017 Constitutional fatigue 05/29/2017 Constitutional No fever 05/29/2017 Eyes No eye discharge 05/29/2017 Eyes No eye erythema 05/29/2017 Ears/Nose/Throat/Neck No nasal discharge 05/29/2017 Ears/Nose/Throat/Neck No sore throat Ears/Nose/Throat/Neck No sinus congestion 05/29/2017 Cardiovascular No chest pain/pressure Respiratory asthma 05/29/2017 Respiratory No chest congestion 2016 Respiratory chest tightness 05/29/2017 Gastrointestinal No abdominal pain 2016 Gastrointestinal No constipation 2016 Gastrointestinal No diarrhea 05/29/2017 Gastrointestinal No nausea 05/29/2017 Gastrointestinal No vomiting 05/29/2017 Genitourinary/Nephrology No dysuria 05/29 Musculoskeletal No stiffness 05/29/2017 Musculoskeletal No swelling 05/29/2017 Musculoskeletal No muscle weakness 2016 Musculoskeletal No myalgias 05/29/2017 Dermatologic No rash 05/29/2017 Neurologic No dizziness 05/29/2017 Neurologic No headache 05/29/2017 Neurologic No neck pain 05/29/2017 Psychiatric anxiety 05/29/2017 Psychiatric No depression 05/29/2017 Ears/Nose/Throat/Neck hearing loss 2016 Ears/Nose/Throat/Neck otalgia 05/29/2017 Constitutional recent illness 05/14/2017 Constitutional fatigue 05/14/2017 Constitutional fever 05/14/2017 Eyes No eye discharge 05/14/2017 Eyes No eye erythema 05/14/2017 Ears/Nose/Throat/Neck nasal allergies 12/2016 Ears/Nose/Throat/Neck No nasal discharge 05/14/2017 Cardiovascular chest pain/pressure 2016 Respiratory asthma 05/14/2017 Respiratory No chest congestion 2016 Respiratory chest tightness 05/14/2017 Respiratory cough 05/14/2017 Gastrointestinal No abdominal pain 2016 Musculoskeletal No joint complaint 2016 Dermatologic No rash 05/14/2017 Neurologic No alteration of consciousness 05/14/2017 Neurologic No mental status change 2016 Respiratory dyspnea on exertion 2016 Musculoskeletal back pain 05/14/2017 Constitutional recent illness 03/06/2017 Constitutional fatigue 03/06/2017 Constitutional No fever 03/06/2017 Eyes No eye discharge 03/06/2017 Eyes No eye erythema 03/06/2017 Ears/Nose/Throat/Neck No nasal discharge 03/06/2017 Ears/Nose/Throat/Neck No sore throat Ears/Nose/Throat/Neck No sinus congestion 03/06/2017 Cardiovascular No chest pain/pressure Respiratory asthma 03/06/2017 Respiratory No chest congestion 2016 Respiratory chest tightness 03/06/2017 Gastrointestinal No abdominal pain 2016 Gastrointestinal No constipation 2016 Gastrointestinal No diarrhea 03/06/2017 Gastrointestinal No nausea 03/06/2017 Gastrointestinal No vomiting 03/06/2017 Genitourinary/Nephrology No dysuria 03/06 Musculoskeletal No stiffness 03/06/2017 Musculoskeletal No swelling 03/06/2017 Musculoskeletal No muscle weakness 2016 Musculoskeletal No myalgias 03/06/2017 Dermatologic No rash 03/06/2017 Neurologic No dizziness 03/06/2017 Neurologic No headache 03/06/2017 Neurologic No neck pain 03/06/2017 Neurologic No syncope 03/06/2017 Psychiatric No anxiety 03/06/2017 Psychiatric No depression 03/06/2017 Constitutional recent illness 11/01/2016 Constitutional fatigue 11/01/2016 Constitutional No fever 11/01/2016 Eyes No eye discharge 11/01/2016 Eyes No eye erythema 11/01/2016 Ears/Nose/Throat/Neck No nasal discharge 11/01/2016 Ears/Nose/Throat/Neck No sore throat Ears/Nose/Throat/Neck No sinus congestion 11/01/2016 Cardiovascular No chest pain/pressure Respiratory asthma 11/01/2016 Respiratory No chest congestion 2016 Respiratory chest tightness 11/01/2016 Gastrointestinal No abdominal pain 2016 Gastrointestinal No constipation 2016 Gastrointestinal No diarrhea 11/01/2016 Gastrointestinal No nausea 11/01/2016 Gastrointestinal No vomiting 11/01/2016 Genitourinary/Nephrology No dysuria 11/01 Musculoskeletal No stiffness 11/01/2016 Musculoskeletal No swelling 11/01/2016 Musculoskeletal No muscle weakness 2016 Musculoskeletal No myalgias 11/01/2016 Dermatologic No rash 11/01/2016 Neurologic No dizziness 11/01/2016 Neurologic No headache 11/01/2016 Neurologic No neck pain 11/01/2016 Neurologic No syncope 11/01/2016 Psychiatric No anxiety 11/01/2016 Psychiatric No depression 11/01/2016 Constitutional fatigue 10/18/2016 Constitutional malaise 10/18/2016 Respiratory cough 10/18/2016 Respiratory chest tightness 10/18/2016 Cardiovascular fatigue 10/18/2016 Cardiovascular exercise intolerance 10/18 Cardiovascular dyspnea 10/18/2016 Constitutional recent illness 10/12/2016 Constitutional fatigue 10/12/2016 Constitutional No fever 10/12/2016 Eyes No eye discharge 10/12/2016 Eyes No eye erythema 10/12/2016 Ears/Nose/Throat/Neck No nasal discharge 10/12/2016 Cardiovascular No chest pain/pressure 12/2016 Respiratory asthma 10/12/2016 Respiratory No chest congestion 2016 Respiratory chest tightness 10/12/2016 Gastrointestinal No abdominal pain 2016 Dermatologic No rash 10/12/2016 Ears/Nose/Throat/Neck nasal allergies 12/2016 Respiratory No cough 10/12/2016 Gastrointestinal gastroesophageal reflux 10/12/2016 Musculoskeletal No joint complaint 2016 Neurologic No alteration of consciousness 10/12/2016 Neurologic No mental status change 2016 Constitutional recent illness 09/04/2016 Constitutional fatigue 09/04/2016 Constitutional No fever 09/04/2016 Eyes No eye discharge 09/04/2016 Eyes No eye erythema 09/04/2016 Ears/Nose/Throat/Neck No nasal discharge 09/04/2016 Ears/Nose/Throat/Neck No sore throat Ears/Nose/Throat/Neck No sinus congestion 09/04/2016 Cardiovascular No chest pain/pressure Respiratory asthma 09/04/2016 Respiratory No chest congestion 2016 Respiratory chest tightness 09/04/2016 Gastrointestinal No abdominal pain 2016 Gastrointestinal No constipation 2016 Gastrointestinal No diarrhea 09/04/2016 Gastrointestinal No nausea 09/04/2016 Gastrointestinal No vomiting 09/04/2016 Genitourinary/Nephrology No dysuria 09/04 Musculoskeletal No stiffness 09/04/2016 Musculoskeletal No swelling 09/04/2016 Musculoskeletal No muscle weakness 2016 Musculoskeletal No myalgias 09/04/2016 Dermatologic No rash 09/04/2016 Neurologic No dizziness 09/04/2016 Neurologic No headache 09/04/2016 Neurologic No neck pain 09/04/2016 Neurologic No syncope 09/04/2016 Psychiatric No anxiety 09/04/2016 Psychiatric No depression 09/04/2016 Constitutional No recent illness 2015 Constitutional No chills 05/30/2016 Constitutional No fever 05/30/2016 Eyes No eye erythema 05/30/2016 Ears/Nose/Throat/Neck No nasal discharge 05/30/2016 Cardiovascular No chest pain/pressure Cardiovascular No dyspnea 05/30/2016 Respiratory No cough 05/30/2016 Respiratory No dyspnea 05/30/2016 Musculoskeletal joint complaint 2015 Neurologic No alteration of consciousness 05/30/2016 Neurologic No mental status change 2015 Constitutional recent illness 05/01/2016 Constitutional fatigue 05/01/2016 Constitutional No fever 05/01/2016 Eyes No eye discharge 05/01/2016 Eyes No eye erythema 05/01/2016 Ears/Nose/Throat/Neck No nasal discharge 05/01/2016 Ears/Nose/Throat/Neck No sore throat Ears/Nose/Throat/Neck No sinus congestion 05/01/2016 Cardiovascular No chest pain/pressure Respiratory asthma 05/01/2016 Respiratory No chest congestion 2015 Respiratory chest tightness 05/01/2016 Gastrointestinal No abdominal pain 2015 Gastrointestinal No constipation 2015 Gastrointestinal No diarrhea 05/01/2016 Gastrointestinal No nausea 05/01/2016 Gastrointestinal No vomiting 05/01/2016 Genitourinary/Nephrology No dysuria 05/01 Musculoskeletal No stiffness 05/01/2016 Musculoskeletal No swelling 05/01/2016 Musculoskeletal No muscle weakness 2015 Musculoskeletal No myalgias 05/01/2016 Dermatologic No rash 05/01/2016 Neurologic No dizziness 05/01/2016 Neurologic No headache 05/01/2016 Neurologic No neck pain 05/01/2016 Neurologic No syncope 05/01/2016 Psychiatric No anxiety 05/01/2016 Psychiatric No depression 05/01/2016 Constitutional recent illness 02/29/2016 Constitutional fatigue 02/29/2016 Constitutional No fever 02/29/2016 Eyes No eye discharge 02/29/2016 Eyes No eye erythema 02/29/2016 Ears/Nose/Throat/Neck No nasal discharge 02/29/2016 Ears/Nose/Throat/Neck No sore throat Ears/Nose/Throat/Neck No sinus congestion 02/29/2016 Cardiovascular No chest pain/pressure Respiratory asthma 02/29/2016 Respiratory No chest congestion 2015 Respiratory chest tightness 02/29/2016 Gastrointestinal No abdominal pain 2015 Gastrointestinal No constipation 2015 Gastrointestinal No diarrhea 02/29/2016 Gastrointestinal No nausea 02/29/2016 Gastrointestinal No vomiting 02/29/2016 Genitourinary/Nephrology No dysuria 02/28 Musculoskeletal No stiffness 02/29/2016 Musculoskeletal No swelling 02/29/2016 Musculoskeletal No muscle weakness 2015 Musculoskeletal No myalgias 02/29/2016 Dermatologic No rash 02/29/2016 Neurologic No dizziness 02/29/2016 Neurologic No headache 02/29/2016 Neurologic No neck pain 02/29/2016 Neurologic No syncope 02/29/2016 Psychiatric No anxiety 02/29/2016 Psychiatric No depression 02/29/2016 Constitutional recent illness 02/03/2016 Constitutional No fever 02/03/2016 Eyes No eye discharge 02/03/2016 Eyes No eye erythema 02/03/2016 Ears/Nose/Throat/Neck nasal discharge Ears/Nose/Throat/Neck neck pain 2015 Ears/Nose/Throat/Neck sinus congestion Ears/Nose/Throat/Neck No sore throat Cardiovascular No chest pain/pressure Respiratory No chest congestion 2015 Respiratory No chest tightness 2015 Gastrointestinal No abdominal pain 2015 Gastrointestinal No constipation 2015 Gastrointestinal diarrhea 02/03/2016 Gastrointestinal No nausea 02/03/2016 Gastrointestinal No vomiting 02/03/2016 Genitourinary/Nephrology No dysuria 02/02 Musculoskeletal No joint complaint 2015 Dermatologic No rash 02/03/2016 Psychiatric No anxiety 02/03/2016 Psychiatric No depression 02/03/2016 Constitutional fatigue 02/03/2016 Constitutional recent illness 12/21/2015 Constitutional No fever 12/21/2015 Eyes No eye discharge 12/21/2015 Eyes No eye erythema 12/21/2015 Ears/Nose/Throat/Neck No nasal discharge 12/21/2015 Ears/Nose/Throat/Neck No sore throat Ears/Nose/Throat/Neck No sinus congestion 12/21/2015 Cardiovascular No chest pain/pressure Respiratory No chest congestion 2015 Respiratory chest tightness 12/21/2015 Gastrointestinal No abdominal pain 2015 Gastrointestinal No constipation 2015 Gastrointestinal No diarrhea 12/21/2015 Gastrointestinal No nausea 12/21/2015 Gastrointestinal No vomiting 12/21/2015 Genitourinary/Nephrology No dysuria 12/20 Musculoskeletal No stiffness 12/21/2015 Musculoskeletal No swelling 12/21/2015 Musculoskeletal No muscle weakness 2015 Musculoskeletal No myalgias 12/21/2015 Dermatologic No rash 12/21/2015 Neurologic No dizziness 12/21/2015 Neurologic No headache 12/21/2015 Neurologic No neck pain 12/21/2015 Neurologic No syncope 12/21/2015 Psychiatric No anxiety 12/21/2015 Psychiatric No depression 12/21/2015 Constitutional fatigue 12/21/2015 Respiratory asthma 12/21/2015 Constitutional fatigue 10/25/2015 Constitutional malaise 10/25/2015 Eyes No blindness 10/25/2015 Eyes No eye discharge 10/25/2015 Eyes No eye erythema 10/25/2015 Ears/Nose/Throat/Neck dizziness 2015 Ears/Nose/Throat/Neck No nasal discharge 10/25/2015 Cardiovascular chest pain/pressure 2015 Cardiovascular dyspnea 10/25/2015 Cardiovascular No edema 10/25/2015 Cardiovascular near-syncope/dizziness Respiratory dyspnea on exertion 2015 Respiratory dyspnea 10/25/2015 Gastrointestinal No abdominal pain 2015 Gastrointestinal No constipation 2015 Genitourinary/Nephrology No dysuria 10/24 Neurologic dizziness 10/25/2015 Psychiatric anxiety 10/25/2015 Eyes No eye discharge 10/19/2015 Eyes No eye erythema 10/19/2015 Ears/Nose/Throat/Neck No nasal discharge 10/19/2015 Cardiovascular chest pain/pressure 2015 Gastrointestinal No constipation 2015 Gastrointestinal diarrhea 10/19/2015 Genitourinary/Nephrology No dysuria 10/18 Psychiatric anxiety 10/19/2015 Constitutional fatigue 10/19/2015 Constitutional malaise 10/19/2015 Eyes No eye erythema 10/19/2015 Ears/Nose/Throat/Neck dizziness 2015 Cardiovascular dyspnea 10/19/2015 Cardiovascular No edema 10/19/2015 Cardiovascular near-syncope/dizziness 06/2016 Respiratory dyspnea 10/19/2015 Respiratory dyspnea on exertion 2015 Gastrointestinal No abdominal pain 2015 Neurologic dizziness 10/19/2015 Constitutional No recent illness 2014 Constitutional No fever 06/22/2015 Eyes No eye discharge 06/22/2015 Eyes No eye erythema 06/22/2015 Ears/Nose/Throat/Neck No nasal discharge 06/22/2015 Ears/Nose/Throat/Neck No sore throat Ears/Nose/Throat/Neck No sinus congestion 06/22/2015 Cardiovascular No chest pain/pressure Respiratory No chest congestion 2014 Respiratory No chest tightness 2014 Gastrointestinal No abdominal pain 2014 Gastrointestinal No constipation 2014 Gastrointestinal No diarrhea 06/22/2015 Gastrointestinal No nausea 06/22/2015 Gastrointestinal No vomiting 06/22/2015 Genitourinary/Nephrology No dysuria 06/22 Musculoskeletal No stiffness 06/22/2015 Musculoskeletal No swelling 06/22/2015 Musculoskeletal No muscle weakness 2014 Musculoskeletal No myalgias 06/22/2015 Dermatologic No rash 06/22/2015 Psychiatric No anxiety 06/22/2015 Psychiatric No depression 06/22/2015 Neurologic No dizziness 06/22/2015 Neurologic No headache 06/22/2015 Neurologic No neck pain 06/22/2015 Neurologic No syncope 06/22/2015 Constitutional No recent illness 2014 Constitutional No fever 12/22/2014 Eyes No eye discharge 12/22/2014 Eyes No eye erythema 12/22/2014 Ears/Nose/Throat/Neck No nasal discharge 12/22/2014 Ears/Nose/Throat/Neck No sore throat Ears/Nose/Throat/Neck No sinus congestion 12/22/2014 Cardiovascular No chest pain/pressure Respiratory No chest congestion 2014 Respiratory No chest tightness 2014 Gastrointestinal No abdominal pain 2014 Gastrointestinal No constipation 2014 Gastrointestinal No diarrhea 12/22/2014 Gastrointestinal No nausea 12/22/2014 Gastrointestinal No vomiting 12/22/2014 Genitourinary/Nephrology No dysuria 12/22 Dermatologic No rash 12/22/2014 Psychiatric No anxiety 12/22/2014 Psychiatric No depression 12/22/2014 Musculoskeletal No stiffness 12/22/2014 Musculoskeletal No swelling 12/22/2014 Musculoskeletal No muscle weakness 2014 Musculoskeletal No myalgias 12/22/2014 Constitutional recent illness 08/17/2014 Constitutional No chills 08/17/2014 Constitutional No diaphoresis 08/17/2014 Constitutional No fever 08/17/2014 Ears/Nose/Throat/Neck facial pain 2014 Ears/Nose/Throat/Neck nasal discharge 03/2015 Ears/Nose/Throat/Neck postnasal drip 03/2015 Ears/Nose/Throat/Neck sinus congestion Cardiovascular dyspnea 08/17/2014 Cardiovascular No edema 08/17/2014 Respiratory cough 08/17/2014 Respiratory chest congestion 08/17/2014 Respiratory productive sputum 08/17/2014 Respiratory dyspnea on exertion 2014 Gastrointestinal No nausea 08/17/2014 Gastrointestinal No vomiting 08/17/2014 Gastrointestinal No constipation 2014 Gastrointestinal No diarrhea 08/17/2014 Respiratory wheezing 08/17/2014 Eyes No eye discharge 08/17/2014 Eyes No eye erythema 08/17/2014 Ears/Nose/Throat/Neck No sore throat 03/2015 Cardiovascular No chest pain/pressure 03/2015 Respiratory chest tightness 08/17/2014 Gastrointestinal No abdominal pain 2014 Genitourinary/Nephrology No dysuria 08/17 Dermatologic No rash 08/17/2014 Psychiatric No anxiety 08/17/2014 Psychiatric No depression 08/17/2014 Constitutional recent illness 04/13/2014 Constitutional No fever 04/13/2014 Eyes No eye discharge 04/13/2014 Eyes No eye erythema 04/13/2014 Ears/Nose/Throat/Neck nasal discharge 12/2013 Ears/Nose/Throat/Neck No sore throat 12/2013 Ears/Nose/Throat/Neck sinus congestion Cardiovascular No chest pain/pressure 12/2013 Respiratory chest congestion 04/13/2014 Respiratory No chest tightness 2013 Gastrointestinal No abdominal pain 2013 Gastrointestinal No constipation 2013 Gastrointestinal No diarrhea 04/13/2014 Gastrointestinal No nausea 04/13/2014 Gastrointestinal No vomiting 04/13/2014 Genitourinary/Nephrology No dysuria 04/13 Dermatologic No rash 04/13/2014 Psychiatric No anxiety 04/13/2014 Psychiatric No depression 04/13/2014 Ears/Nose/Throat/Neck postnasal drip 12/2013 Respiratory productive sputum 04/13/2014 Constitutional No recent illness 2013 Constitutional No fever 12/11/2013 Eyes No eye discharge 12/11/2013 Eyes No eye erythema 12/11/2013 Ears/Nose/Throat/Neck No nasal discharge 12/11/2013 Ears/Nose/Throat/Neck No sore throat 11/2013 Ears/Nose/Throat/Neck No sinus congestion 12/11/2013 Cardiovascular No chest pain/pressure 11/2013 Respiratory No chest congestion 2013 Respiratory No chest tightness 2013 Gastrointestinal No abdominal pain 2013 Gastrointestinal No constipation 2013 Gastrointestinal No diarrhea 12/11/2013 Gastrointestinal No nausea 12/11/2013 Gastrointestinal No vomiting 12/11/2013 Genitourinary/Nephrology No dysuria 12/11 Dermatologic No rash 12/11/2013 Psychiatric No anxiety 12/11/2013 Psychiatric No depression 12/11/2013 Constitutional No recent illness 2013 Constitutional No fever 11/10/2013 Eyes No eye discharge 11/10/2013 Eyes No eye erythema 11/10/2013 Ears/Nose/Throat/Neck No nasal discharge 11/10/2013 Ears/Nose/Throat/Neck No sore throat 11/2013 Ears/Nose/Throat/Neck No sinus congestion 11/10/2013 Cardiovascular No chest pain/pressure 11/2013 Respiratory No chest congestion 2013 Respiratory No chest tightness 2013 Gastrointestinal No abdominal pain 2013 Gastrointestinal No constipation 2013 Gastrointestinal No diarrhea 11/10/2013 Gastrointestinal No nausea 11/10/2013 Gastrointestinal No vomiting 11/10/2013 Genitourinary/Nephrology No dysuria 11/10 Dermatologic No rash 11/10/2013 Psychiatric No anxiety 11/10/2013 Psychiatric No depression 11/10/2013 Constitutional recent illness 08/11/2013 Constitutional No fever 08/11/2013 Eyes No eye discharge 08/11/2013 Eyes No eye erythema 08/11/2013 Ears/Nose/Throat/Neck No nasal discharge 08/11/2013 Ears/Nose/Throat/Neck No sore throat 09/2013 Ears/Nose/Throat/Neck No sinus congestion 08/11/2013 Cardiovascular No chest pain/pressure 09/2013 Respiratory chest congestion 08/11/2013 Respiratory chest tightness 08/11/2013 Gastrointestinal No abdominal pain 2013 Gastrointestinal No constipation 2013 Gastrointestinal No diarrhea 08/11/2013 Gastrointestinal No nausea 08/11/2013 Gastrointestinal No vomiting 08/11/2013 Genitourinary/Nephrology No dysuria 08/11 Dermatologic No rash 08/11/2013 Respiratory cough 08/11/2013 Constitutional No recent illness 2012 Constitutional No fever 05/12/2013 Eyes No eye discharge 05/12/2013 Eyes No eye erythema 05/12/2013 Ears/Nose/Throat/Neck No nasal discharge 05/12/2013 Ears/Nose/Throat/Neck No sore throat 10/2012 Ears/Nose/Throat/Neck No sinus congestion 05/12/2013 Cardiovascular No chest pain/pressure 10/2012 Respiratory No chest congestion 2012 Respiratory No chest tightness 2012 Gastrointestinal No abdominal pain 2012 Gastrointestinal No constipation 2012 Gastrointestinal No diarrhea 05/12/2013 Gastrointestinal No nausea 05/12/2013 Gastrointestinal No vomiting 05/12/2013 Genitourinary/Nephrology No dysuria 05/12 Dermatologic No rash 05/12/2013 Constitutional No recent illness 2012 Constitutional No fever 01/06/2013 Eyes No eye discharge 01/06/2013 Eyes No eye erythema 01/06/2013 Ears/Nose/Throat/Neck No nasal discharge 01/06/2013 Ears/Nose/Throat/Neck No sore throat 07/2012 Ears/Nose/Throat/Neck No sinus congestion 01/06/2013 Cardiovascular No chest pain/pressure 07/2012 Respiratory No chest congestion 2012 Respiratory No chest tightness 2012 Gastrointestinal No abdominal pain 2012 Gastrointestinal No constipation 2012 Gastrointestinal No diarrhea 01/06/2013 Gastrointestinal No nausea 01/06/2013 Gastrointestinal No vomiting 01/06/2013 Genitourinary/Nephrology No dysuria 01/06 Dermatologic No rash 01/06/2013 Constitutional No recent illness 2012 Constitutional No fever 10/07/2012 Eyes No eye discharge 10/07/2012 Eyes No eye erythema 10/07/2012 Ears/Nose/Throat/Neck No nasal discharge 10/07/2012 Ears/Nose/Throat/Neck No sinus congestion 10/07/2012 Ears/Nose/Throat/Neck No sore throat 07/2012 Cardiovascular No chest pain/pressure 07/2012 Respiratory No chest congestion 2012 Respiratory No chest tightness 2012 Gastrointestinal No abdominal pain 2012 Gastrointestinal No constipation 2012 Gastrointestinal No diarrhea 10/07/2012 Gastrointestinal No nausea 10/07/2012 Gastrointestinal No vomiting 10/07/2012 Genitourinary/Nephrology No dysuria 10/07 Dermatologic No rash 10/07/2012 Constitutional No chills 09/11/2012 Constitutional fatigue 09/11/2012 Constitutional No fever 09/11/2012 Constitutional No insomnia 09/11/2012 Eyes No blindness 09/11/2012 Eyes No vision change 09/11/2012 Ears/Nose/Throat/Neck No dizziness 2012 Dermatologic No rash 09/11/2012 Dermatologic No sores 09/11/2012 Dermatologic No scar 09/11/2012 Psychiatric No anxiety 09/11/2012 Psychiatric No depression 09/11/2012 Ears/Nose/Throat/Neck No dysphagia 2012 Ears/Nose/Throat/Neck No headache 2012 Ears/Nose/Throat/Neck No hearing loss 12/2012 Ears/Nose/Throat/Neck No hoarseness 09/11 Ears/Nose/Throat/Neck nasal allergies 12/2012 Ears/Nose/Throat/Neck nasal discharge 12/2012 Ears/Nose/Throat/Neck No sore throat 12/2012 Ears/Nose/Throat/Neck No postnasal drip 09/11/2012 Ears/Nose/Throat/Neck No sinus congestion 09/11/2012 Respiratory No chest tightness 2012 Respiratory No cigarette smoking 2012 Respiratory No cough 09/11/2012 Respiratory No dyspnea 09/11/2012 Respiratory No pedal edema 09/11/2012 Respiratory No snoring 09/11/2012 Respiratory No wheezing 09/11/2012 Gastrointestinal No abdominal pain 2012 Gastrointestinal No constipation 2012 Gastrointestinal No diarrhea 09/11/2012 Gastrointestinal gastroesophageal reflux 09/11/2012 Musculoskeletal No stiffness 09/11/2012 Musculoskeletal No swelling 09/11/2012 Musculoskeletal No muscle weakness 2012 Musculoskeletal No myalgias 09/11/2012 Constitutional recent illness 07/15/2012 Constitutional No chills 07/15/2012 Constitutional fatigue 07/15/2012 Constitutional No fever 07/15/2012 Constitutional No insomnia 07/15/2012 Constitutional malaise 07/15/2012 Eyes No blindness 07/15/2012 Eyes No vision change 07/15/2012 Respiratory No chest tightness 2012 Respiratory No cigarette smoking 2012 Respiratory No cough 07/15/2012 Respiratory No dyspnea 07/15/2012 Respiratory No pedal edema 07/15/2012 Respiratory No snoring 07/15/2012 Respiratory No wheezing 07/15/2012 Gastrointestinal No abdominal pain 2012 Gastrointestinal No constipation 2012 Gastrointestinal No diarrhea 07/15/2012 Gastrointestinal gastroesophageal reflux 07/15/2012 Musculoskeletal No stiffness 07/15/2012 Musculoskeletal No swelling 07/15/2012 Musculoskeletal No muscle weakness 2012 Musculoskeletal No myalgias 07/15/2012 Psychiatric No anxiety 07/15/2012 Psychiatric No depression 07/15/2012 Dermatologic No rash 07/15/2012 Dermatologic No scar 07/15/2012 Dermatologic No sores 07/15/2012 Ears/Nose/Throat/Neck No dizziness 2012 Ears/Nose/Throat/Neck No dysphagia 2012 Ears/Nose/Throat/Neck No headache 2012 Ears/Nose/Throat/Neck No hearing loss 01/2013 Ears/Nose/Throat/Neck nasal allergies 01/2013 Ears/Nose/Throat/Neck No sore throat 01/2013 Ears/Nose/Throat/Neck No postnasal drip 07/15/2012 Ears/Nose/Throat/Neck No sinus congestion 07/15/2012 Ears/Nose/Throat/Neck nasal discharge 01/2013 Ears/Nose/Throat/Neck No hoarseness 07/15 Constitutional No recent illness 2011 Constitutional No chills 05/02/2012 Constitutional No fatigue 05/02/2012 Constitutional No fever 05/02/2012 Eyes No eye discharge 05/02/2012 Eyes No eye erythema 05/02/2012 Ears/Nose/Throat/Neck No nasal discharge 05/02/2012 Ears/Nose/Throat/Neck No sore throat Ears/Nose/Throat/Neck No sinus congestion 05/02/2012 Respiratory asthma 05/02/2012 Respiratory No chest congestion 2011 Respiratory No chest tightness 2011 Gastrointestinal gastroesophageal reflux 05/02/2012 Gastrointestinal No nausea 05/02/2012 Gastrointestinal No vomiting 05/02/2012 Genitourinary/Nephrology No dysuria 05/02 Musculoskeletal No stiffness 05/02/2012 Musculoskeletal No arthralgia(s) 2011 Neurologic No ataxia 05/02/2012 Neurologic No dizziness 05/02/2012 Neurologic No headache 05/02/2012 Psychiatric No anxiety 05/02/2012 Psychiatric No depression 05/02/2012 Constitutional No recent illness 2011 Constitutional No chills 03/28/2012 Constitutional No fatigue 03/28/2012 Constitutional No fever 03/28/2012 Eyes No eye discharge 03/28/2012 Eyes No eye erythema 03/28/2012 Ears/Nose/Throat/Neck No nasal discharge 03/28/2012 Ears/Nose/Throat/Neck No sinus congestion 03/28/2012 Ears/Nose/Throat/Neck No sore throat Respiratory asthma 03/28/2012 Respiratory No chest congestion 2011 Respiratory No chest tightness 2011 Gastrointestinal gastroesophageal reflux 03/28/2012 Gastrointestinal No nausea 03/28/2012 Gastrointestinal No vomiting 03/28/2012 Genitourinary/Nephrology No dysuria 03/28 Neurologic No ataxia 03/28/2012 Neurologic No dizziness 03/28/2012 Neurologic No headache 03/28/2012 Psychiatric No anxiety 03/28/2012 Psychiatric No depression 03/28/2012 Musculoskeletal No arthralgia(s) 2011 Musculoskeletal No stiffness 03/28/2012 Constitutional No recent illness 2011 Constitutional No fever 11/27/2011 Eyes No eye discharge 11/27/2011 Eyes No eye erythema 11/27/2011 Ears/Nose/Throat/Neck No nasal discharge 11/27/2011 Ears/Nose/Throat/Neck No sinus congestion 11/27/2011 Ears/Nose/Throat/Neck No sore throat Respiratory No chest congestion 2011 Respiratory No chest tightness 2011 Gastrointestinal No nausea 11/27/2011 Gastrointestinal No vomiting 11/27/2011 Genitourinary/Nephrology No dysuria 11/26 Constitutional No chills 11/27/2011 Constitutional No fatigue 11/27/2011 Respiratory asthma 11/27/2011 Neurologic No ataxia 11/27/2011 Neurologic No dizziness 11/27/2011 Neurologic No headache 11/27/2011 Psychiatric No anxiety 11/27/2011 Psychiatric No depression 11/27/2011 Gastrointestinal gastroesophageal reflux 11/27/2011 Constitutional No chills 10/25/2011 Constitutional No fatigue 10/25/2011 Constitutional No fever 10/25/2011 Cardiovascular No chest pain/pressure Cardiovascular No palpitations 2011 Respiratory asthma 10/25/2011 Gastrointestinal No constipation 2011 Gastrointestinal No diarrhea 10/25/2011 Gastrointestinal No nausea 10/25/2011 Gastrointestinal No vomiting 10/25/2011 Musculoskeletal No stiffness 10/25/2011 Musculoskeletal No arthralgia(s) 2011 Neurologic No ataxia 10/25/2011 Neurologic No dizziness 10/25/2011 Neurologic No headache 10/25/2011 Psychiatric No anxiety 10/25/2011 Psychiatric No depression 10/25/2011 Constitutional No recent illness 2011 Constitutional No fever 10/11/2011 Cardiovascular No chest pain/pressure 10/2011 Cardiovascular No dyspnea 10/11/2011 Cardiovascular fatigue 10/11/2011 Respiratory No chest congestion 2011 Respiratory No chest tightness 2011 Gastrointestinal abdominal pain 2011 Gastrointestinal No constipation 2011 Gastrointestinal No diarrhea 10/11/2011 Gastrointestinal gas and bloating 2011 Gastrointestinal gastroesophageal reflux 10/11/2011 Gastrointestinal hematochezia 10/11/2011 Dermatologic No rash 10/11/2011 Psychiatric No anxiety 10/11/2011 Constitutional No recent illness 2011 Constitutional No fever 10/04/2011 Eyes No eye discharge 10/04/2011 Eyes No eye erythema 10/04/2011 Ears/Nose/Throat/Neck No nasal discharge 10/04/2011 Ears/Nose/Throat/Neck No sinus congestion 10/04/2011 Ears/Nose/Throat/Neck No sore throat Cardiovascular No chest pain/pressure Respiratory No chest congestion 2011 Respiratory No chest tightness 2011 Genitourinary/Nephrology No dysuria 10/03 Dermatologic No rash 10/04/2011 Cardiovascular No dyspnea 10/04/2011 Cardiovascular fatigue 10/04/2011 Psychiatric No anxiety 10/04/2011 Gastrointestinal abdominal pain 2011 Gastrointestinal No constipation 2011 Gastrointestinal No diarrhea 10/04/2011 Gastrointestinal gas and bloating 2011 Gastrointestinal gastroesophageal reflux 10/04/2011 Gastrointestinal hematochezia 10/04/2011 Constitutional No recent illness 2011 Constitutional No fever 09/25/2011 Eyes No eye discharge 09/25/2011 Eyes No eye erythema 09/25/2011 Ears/Nose/Throat/Neck No nasal discharge 09/25/2011 Ears/Nose/Throat/Neck No sinus congestion 09/25/2011 Ears/Nose/Throat/Neck No sore throat Cardiovascular No chest pain/pressure Respiratory No chest congestion 2011 Respiratory No chest tightness 2011 Gastrointestinal No abdominal pain 2011 Gastrointestinal No constipation 2011 Gastrointestinal No diarrhea 09/25/2011 Gastrointestinal No nausea 09/25/2011 Gastrointestinal No vomiting 09/25/2011 Genitourinary/Nephrology No dysuria 09/24 Dermatologic No rash 09/25/2011 Gastrointestinal No constipation 2011 Gastrointestinal No diarrhea 07/31/2011 Gastrointestinal No nausea 07/31/2011 Gastrointestinal No vomiting 07/31/2011 Genitourinary/Nephrology No dysuria 07/31 Dermatologic No rash 07/31/2011 Ears/Nose/Throat/Neck No nasal discharge 07/31/2011 Ears/Nose/Throat/Neck No sinus congestion 07/31/2011 Constitutional No recent illness 2011 Constitutional No fever 07/31/2011 Eyes No eye discharge 07/31/2011 Eyes No eye erythema 07/31/2011 Ears/Nose/Throat/Neck neck pain 2011 Ears/Nose/Throat/Neck No sore throat Cardiovascular No chest pain/pressure Respiratory No chest congestion 2011 Respiratory No chest tightness 2011 Gastrointestinal No abdominal pain 2011 Constitutional No fever 05/22/2011 Eyes No eye discharge 05/22/2011 Eyes No eye erythema 05/22/2011 Ears/Nose/Throat/Neck nasal discharge Ears/Nose/Throat/Neck sinus congestion Ears/Nose/Throat/Neck No sore throat Ears/Nose/Throat/Neck neck pain 2010 Cardiovascular No chest pain/pressure Respiratory No chest congestion 2010 Respiratory No chest tightness 2010 Gastrointestinal No nausea 05/22/2011 Gastrointestinal No vomiting 05/22/2011 Gastrointestinal No abdominal pain 2010 Gastrointestinal No constipation 2010 Gastrointestinal No diarrhea 05/22/2011 Genitourinary/Nephrology No dysuria 05/22 Musculoskeletal No joint complaint 2010 Dermatologic No rash 05/22/2011 Constitutional No recent illness 2010 Constitutional No chills 05/05/2011 Constitutional No fever 05/05/2011 Constitutional No fatigue 05/05/2011 Cardiovascular No chest pain/pressure Cardiovascular No palpitations 2010 Respiratory asthma 05/05/2011 Gastrointestinal No constipation 2010 Gastrointestinal No diarrhea 05/05/2011 Gastrointestinal No nausea 05/05/2011 Gastrointestinal No vomiting 05/05/2011 Dermatologic No rash 05/05/2011 Dermatologic No sores 05/05/2011 Neurologic No ataxia 05/05/2011 Neurologic No dizziness 05/05/2011 Neurologic No headache 05/05/2011 Psychiatric No anxiety 05/05/2011 Psychiatric No depression 05/05/2011 Musculoskeletal No stiffness 05/05/2011 Musculoskeletal No arthralgia(s) 2010 Physical Exam Exam Name System Name Item Name Status Result Effective Dates Notes Full Exam - General 1994 Constitutional general appearance Overall: well developed 05/29/2017 None Full Exam - General 1994 Constitutional general appearance Overall: in no acute distress 05/29/2017 None Full Exam - General 1994 Constitutional general appearance Overall: well nourished 05/29/2017 None Full Exam - General 1994 Eyes pupils and irises Overall: pupils equal, round, reactive to light and accomodation 05/29/2017 None Full Exam - General 1994 Respiratory auscultation Overall: breath sounds clear bilaterally 05/29/2017 None Full Exam - General 1994 Respiratory respiratory effort/rhythm Overall: no retractions 05/29/2017 None Full Exam - General 1994 Respiratory respiratory effort/rhythm Overall: normal rate 05/29/2017 None Full Exam - General 1994 Cardiovascular auscultation of heart Overall: regular rate 05/29/2017 None Full Exam - General 1994 Cardiovascular auscultation of heart Overall: normal heart sounds 05/29/2017 None Full Exam - General 1994 Abdomen abdominal exam Overall: no tenderness 05/29/2017 None Full Exam - General 1994 Abdomen abdominal exam Overall: normal bowel sounds 05/29/2017 None Full Exam - General 1994 Musculoskeletal head and neck Overall: head atraumatic 05/29/2017 None Full Exam - General 1994 Musculoskeletal head and neck Overall: cervical spine benign 05/29/2017 None Full Exam - General 1994 Psychiatric orientation/consciousness Overall: oriented to person, place and time 05/29/2017 None Full Exam - General 1994 Psychiatric mood and affect Overall: normal mood and affect 05/29/2017 None Full Exam - General 1994 Ears/Nose/Throat otoscopic exam External auditory canal: complete cerumen impaction 05/29/2017 None Full Exam - General 1994 Ears/Nose/Throat otoscopic exam External auditory canal: minimal cerumen 05/29/2017 None Full Exam - General 1994 Constitutional general appearance Overall: well developed 05/14/2017 None Full Exam - General 1994 Constitutional general appearance Overall: in no acute distress 05/14/2017 None Full Exam - General 1994 Constitutional general appearance Overall: well nourished 05/14/2017 None Full Exam - General 1994 Eyes conjunctiva /eyelids Overall: conjunctiva clear 05/14/2017 None Full Exam - General 1994 Eyes conjunctiva /eyelids Overall: eyelids normal 05/14/2017 None Full Exam - General 1994 Ears/Nose/Throat otoscopic exam Overall: external auditory canals clear 05/14/2017 None Full Exam - General 1994 Ears/Nose/Throat otoscopic exam Overall: tympanic membranes clear 05/14/2017 None Full Exam - General 1994 Ears/Nose/Throat lips/teeth/gingiva Overall: benign lips 05/14/2017 None Full Exam - General 1994 Ears/Nose/Throat oral cavity/pharynx/larynx Overall: oral mucosa clear 05/14/2017 None Full Exam - General 1994 Respiratory auscultation Overall: breath sounds clear bilaterally 05/14/2017 None Full Exam - General 1994 Respiratory respiratory effort/rhythm Overall: no retractions 05/14/2017 None Full Exam - General 1994 Respiratory respiratory effort/rhythm Overall: normal rate 05/14/2017 None Full Exam - General 1994 Cardiovascular auscultation of heart Overall: regular rate 05/14/2017 None Full Exam - General 1994 Cardiovascular auscultation of heart Overall: normal heart sounds 05/14/2017 None Full Exam - General 1994 Abdomen abdominal exam Overall: no tenderness 05/14/2017 None Full Exam - General 1994 Abdomen abdominal exam Overall: normal bowel sounds 05/14/2017 None Full Exam - General 1994 Musculoskeletal head and neck Overall: head atraumatic 05/14/2017 None Full Exam - General 1994 Neurologic gait Overall: no ataxia, no unsteadiness 05/14/2017 None Full Exam - General 1994 Psychiatric orientation/consciousness Overall: oriented to person, place and time 05/14/2017 None Full Exam - General 1994 Psychiatric mood and affect Overall: normal mood and affect 05/14/2017 None Full Exam - General 1994 Psychiatric appearance Overall: well-groomed, good eye contact 05/14/2017 None Full Exam - General 1994 Constitutional general appearance Overall: well developed 03/06/2017 None Full Exam - General 1994 Constitutional general appearance Overall: in no acute distress 03/06/2017 None Full Exam - General 1994 Constitutional general appearance Overall: well nourished 03/06/2017 None Full Exam - General 1994 Eyes pupils and irises Overall: pupils equal, round, reactive to light and accomodation 03/06/2017 None Full Exam - General 1994 Ears/Nose/Throat otoscopic exam Overall: external auditory canals clear 03/06/2017 None Full Exam - General 1994 Ears/Nose/Throat otoscopic exam Overall: tympanic membranes clear 03/06/2017 None Full Exam - General 1994 Respiratory auscultation Overall: breath sounds clear bilaterally 03/06/2017 None Full Exam - General 1994 Respiratory respiratory effort/rhythm Overall: no retractions 03/06/2017 None Full Exam - General 1994 Respiratory respiratory effort/rhythm Overall: normal rate 03/06/2017 None Full Exam - General 1994 Cardiovascular auscultation of heart Overall: regular rate 03/06/2017 None Full Exam - General 1994 Cardiovascular auscultation of heart Overall: normal heart sounds 03/06/2017 None Full Exam - General 1994 Abdomen abdominal exam Overall: no tenderness 03/06/2017 None Full Exam - General 1994 Abdomen abdominal exam Overall: normal bowel sounds 03/06/2017 None Full Exam - General 1994 Musculoskeletal head and neck Overall: head atraumatic 03/06/2017 None Full Exam - General 1994 Musculoskeletal head and neck Overall: cervical spine benign 03/06/2017 None Full Exam - General 1994 Neurologic gait Overall: no ataxia, no unsteadiness 03/06/2017 None Full Exam - General 1994 Psychiatric orientation/consciousness Overall: oriented to person, place and time 03/06/2017 None Full Exam - General 1994 Psychiatric mood and affect Overall: normal mood and affect 03/06/2017 None Full Exam - General 1994 Constitutional general appearance Overall: well developed 11/01/2016 None Full Exam - General 1994 Constitutional general appearance Overall: in no acute distress 11/01/2016 None Full Exam - General 1994 Constitutional general appearance Overall: well nourished 11/01/2016 None Full Exam - General 1994 Eyes pupils and irises Overall: pupils equal, round, reactive to light and accomodation 11/01/2016 None Full Exam - General 1994 Ears/Nose/Throat otoscopic exam Overall: external auditory canals clear 11/01/2016 None Full Exam - General 1994 Ears/Nose/Throat otoscopic exam Overall: tympanic membranes clear 11/01/2016 None Full Exam - General 1994 Respiratory auscultation Overall: breath sounds clear bilaterally 11/01/2016 None Full Exam - General 1994 Respiratory respiratory effort/rhythm Overall: no retractions 11/01/2016 None Full Exam - General 1994 Respiratory respiratory effort/rhythm Overall: normal rate 11/01/2016 None Full Exam - General 1994 Cardiovascular auscultation of heart Overall: regular rate 11/01/2016 None Full Exam - General 1994 Cardiovascular auscultation of heart Overall: normal heart sounds 11/01/2016 None Full Exam - General 1994 Abdomen abdominal exam Overall: no tenderness 11/01/2016 None Full Exam - General 1994 Abdomen abdominal exam Overall: normal bowel sounds 11/01/2016 None Full Exam - General 1994 Musculoskeletal head and neck Overall: head atraumatic 11/01/2016 None Full Exam - General 1994 Musculoskeletal head and neck Overall: cervical spine benign 11/01/2016 None Full Exam - General 1994 Neurologic gait Overall: no ataxia, no unsteadiness 11/01/2016 None Full Exam - General 1994 Psychiatric orientation/consciousness Overall: oriented to person, place and time 11/01/2016 None Full Exam - General 1994 Psychiatric mood and affect Overall: normal mood and affect 11/01/2016 None Full Exam - General 1994 Constitutional general appearance Overall: well developed 10/12/2016 None Full Exam - General 1994 Constitutional general appearance Overall: in no acute distress 10/12/2016 None Full Exam - General 1994 Constitutional general appearance Overall: well nourished 10/12/2016 None Full Exam - General 1994 Ears/Nose/Throat otoscopic exam Overall: external auditory canals clear 10/12/2016 None Full Exam - General 1994 Ears/Nose/Throat otoscopic exam Overall: tympanic membranes clear 10/12/2016 None Full Exam - General 1994 Respiratory auscultation Overall: breath sounds clear bilaterally 10/12/2016 None Full Exam - General 1994 Respiratory respiratory effort/rhythm Overall: no retractions 10/12/2016 None Full Exam - General 1994 Respiratory respiratory effort/rhythm Overall: normal rate 10/12/2016 None Full Exam - General 1994 Cardiovascular auscultation of heart Overall: regular rate 10/12/2016 None Full Exam - General 1994 Cardiovascular auscultation of heart Overall: normal heart sounds 10/12/2016 None Full Exam - General 1994 Abdomen abdominal exam Overall: no tenderness 10/12/2016 None Full Exam - General 1994 Musculoskeletal head and neck Overall: head atraumatic 10/12/2016 None Full Exam - General 1994 Neurologic gait Overall: no ataxia, no unsteadiness 10/12/2016 None Full Exam - General 1994 Psychiatric orientation/consciousness Overall: oriented to person, place and time 10/12/2016 None Full Exam - General 1994 Psychiatric mood and affect Overall: normal mood and affect 10/12/2016 None Full Exam - General 1994 Eyes conjunctiva /eyelids Overall: conjunctiva clear 10/12/2016 None Full Exam - General 1994 Eyes conjunctiva /eyelids Overall: eyelids normal 10/12/2016 None Full Exam - General 1994 Ears/Nose/Throat lips/teeth/gingiva Overall: benign lips 10/12/2016 None Full Exam - General 1994 Ears/Nose/Throat oral cavity/pharynx/larynx Overall: oral mucosa clear 10/12/2016 None Full Exam - General 1994 Abdomen abdominal exam Overall: normal bowel sounds 10/12/2016 None Full Exam - General 1994 Psychiatric appearance Overall: well-groomed, good eye contact 10/12/2016 None Full Exam - General 1994 Constitutional general appearance Overall: well developed 09/04/2016 None Full Exam - General 1994 Constitutional general appearance Overall: in no acute distress 09/04/2016 None Full Exam - General 1994 Constitutional general appearance Overall: well nourished 09/04/2016 None Full Exam - General 1994 Eyes pupils and irises Overall: pupils equal, round, reactive to light and accomodation 09/04/2016 None Full Exam - General 1994 Ears/Nose/Throat otoscopic exam Overall: external auditory canals clear 09/04/2016 None Full Exam - General 1994 Ears/Nose/Throat otoscopic exam Overall: tympanic membranes clear 09/04/2016 None Full Exam - General 1994 Respiratory auscultation Overall: breath sounds clear bilaterally 09/04/2016 None Full Exam - General 1994 Respiratory respiratory effort/rhythm Overall: no retractions 09/04/2016 None Full Exam - General 1994 Respiratory respiratory effort/rhythm Overall: normal rate 09/04/2016 None Full Exam - General 1994 Cardiovascular auscultation of heart Overall: regular rate 09/04/2016 None Full Exam - General 1994 Cardiovascular auscultation of heart Overall: normal heart sounds 09/04/2016 None Full Exam - General 1994 Abdomen abdominal exam Overall: no tenderness 09/04/2016 None Full Exam - General 1994 Abdomen abdominal exam Overall: normal bowel sounds 09/04/2016 None Full Exam - General 1994 Musculoskeletal head and neck Overall: head atraumatic 09/04/2016 None Full Exam - General 1994 Musculoskeletal head and neck Overall: cervical spine benign 09/04/2016 None Full Exam - General 1994 Neurologic gait Overall: no ataxia, no unsteadiness 09/04/2016 None Full Exam - General 1994 Psychiatric orientation/consciousness Overall: oriented to person, place and time 09/04/2016 None Full Exam - General 1994 Psychiatric mood and affect Overall: normal mood and affect 09/04/2016 None Full Exam - Orthopedics Constitutional general appearance Overall: well nourished 05/30/2016 None Full Exam - Orthopedics Constitutional general appearance Overall: well developed 05/30/2016 None Full Exam - Orthopedics Constitutional general appearance Overall: in no acute distress 05/30/2016 None Full Exam - Orthopedics Eyes conjunctiva/ eyelids Overall: conjunctiva clear 05/30/2016 None Full Exam - Orthopedics Eyes conjunctiva/ eyelids Overall: eyelids normal 05/30/2016 None Full Exam - Orthopedics Ears/Nose/Throat lips/teeth/gingiva Overall: benign lips 05/30/2016 None Full Exam - Orthopedics Ears/Nose/Throat oral cavity/pharynx/larynx Overall: oral mucosa clear 05/30/2016 None Full Exam - Orthopedics Respiratory respiratory effort/rhythm Overall: no retractions 05/30/2016 None Full Exam - Orthopedics Respiratory respiratory effort/rhythm Overall: normal rate 05/30/2016 None Full Exam - Orthopedics Psychiatric orientation/consciousness Overall: oriented to person, place and time 05/30/2016 None Full Exam - Orthopedics Psychiatric mood and affect Overall: normal mood and affect 05/30/2016 None Full Exam - Orthopedics Psychiatric appearance Overall: well-groomed, good eye contact 05/30/2016 None Full Exam - Orthopedics MS: left lower extremity insp & palp - LLE Ankle: swelling 05/30/2016 mild Full Exam - Orthopedics MS: left lower extremity insp & palp - LLE Ankle: tender 05/30/2016 None Full Exam - General 1994 Constitutional general appearance Overall: well developed 05/01/2016 None Full Exam - General 1994 Constitutional general appearance Overall: in no acute distress 05/01/2016 None Full Exam - General 1994 Constitutional general appearance Overall: well nourished 05/01/2016 None Full Exam - General 1994 Eyes pupils and irises Overall: pupils equal, round, reactive to light and accomodation 05/01/2016 None Full Exam - General 1994 Ears/Nose/Throat otoscopic exam Overall: external auditory canals clear 05/01/2016 None Full Exam - General 1994 Ears/Nose/Throat otoscopic exam Overall: tympanic membranes clear 05/01/2016 None Full Exam - General 1994 Respiratory auscultation Overall: breath sounds clear bilaterally 05/01/2016 None Full Exam - General 1994 Respiratory respiratory effort/rhythm Overall: no retractions 05/01/2016 None Full Exam - General 1994 Respiratory respiratory effort/rhythm Overall: normal rate 05/01/2016 None Full Exam - General 1994 Cardiovascular auscultation of heart Overall: regular rate 05/01/2016 None Full Exam - General 1994 Cardiovascular auscultation of heart Overall: normal heart sounds 05/01/2016 None Full Exam - General 1994 Abdomen abdominal exam Overall: no tenderness 05/01/2016 None Full Exam - General 1994 Abdomen abdominal exam Overall: normal bowel sounds 05/01/2016 None Full Exam - General 1994 Musculoskeletal head and neck Overall: head atraumatic 05/01/2016 None Full Exam - General 1994 Musculoskeletal head and neck Overall: cervical spine benign 05/01/2016 None Full Exam - General 1994 Neurologic gait Overall: no ataxia, no unsteadiness 05/01/2016 None Full Exam - General 1994 Psychiatric orientation/consciousness Overall: oriented to person, place and time 05/01/2016 None Full Exam - General 1994 Psychiatric mood and affect Overall: normal mood and affect 05/01/2016 None Full Exam - General 1994 Constitutional general appearance Overall: well developed 02/29/2016 None Full Exam - General 1994 Constitutional general appearance Overall: in no acute distress 02/29/2016 None Full Exam - General 1994 Constitutional general appearance Overall: well nourished 02/29/2016 None Full Exam - General 1994 Eyes pupils and irises Overall: pupils equal, round, reactive to light and accomodation 02/29/2016 None Full Exam - General 1994 Ears/Nose/Throat otoscopic exam Overall: external auditory canals clear 02/29/2016 None Full Exam - General 1994 Ears/Nose/Throat otoscopic exam Overall: tympanic membranes clear 02/29/2016 None Full Exam - General 1994 Respiratory auscultation Overall: breath sounds clear bilaterally 02/29/2016 None Full Exam - General 1994 Respiratory respiratory effort/rhythm Overall: no retractions 02/29/2016 None Full Exam - General 1994 Respiratory respiratory effort/rhythm Overall: normal rate 02/29/2016 None Full Exam - General 1994 Cardiovascular auscultation of heart Overall: regular rate 02/29/2016 None Full Exam - General 1994 Cardiovascular auscultation of heart Overall: normal heart sounds 02/29/2016 None Full Exam - General 1994 Abdomen abdominal exam Overall: no tenderness 02/29/2016 None Full Exam - General 1994 Abdomen abdominal exam Overall: normal bowel sounds 02/29/2016 None Full Exam - General 1994 Musculoskeletal head and neck Overall: head atraumatic 02/29/2016 None Full Exam - General 1994 Musculoskeletal head and neck Overall: cervical spine benign 02/29/2016 None Full Exam - General 1994 Neurologic gait Overall: no ataxia, no unsteadiness 02/29/2016 None Full Exam - General 1994 Psychiatric orientation/consciousness Overall: oriented to person, place and time 02/29/2016 None Full Exam - General 1994 Psychiatric mood and affect Overall: normal mood and affect 02/29/2016 None Full Exam - General 1994 Constitutional general appearance Overall: well developed 02/03/2016 None Full Exam - General 1994 Constitutional general appearance Overall: in no acute distress 02/03/2016 None Full Exam - General 1994 Constitutional general appearance Overall: well nourished 02/03/2016 None Full Exam - General 1994 Eyes pupils and irises Overall: pupils equal, round, reactive to light and accomodation 02/03/2016 None Full Exam - General 1994 Ears/Nose/Throat otoscopic exam Overall: external auditory canals clear 02/03/2016 None Full Exam - General 1994 Ears/Nose/Throat otoscopic exam Overall: tympanic membranes clear 02/03/2016 None Full Exam - General 1994 Respiratory respiratory effort/rhythm Overall: no retractions 02/03/2016 None Full Exam - General 1994 Respiratory respiratory effort/rhythm Overall: normal rate 02/03/2016 None Full Exam - General 1994 Cardiovascular auscultation of heart Overall: regular rate 02/03/2016 None Full Exam - General 1994 Cardiovascular auscultation of heart Overall: normal heart sounds 02/03/2016 None Full Exam - General 1994 Abdomen abdominal exam Overall: no tenderness 02/03/2016 None Full Exam - General 1994 Abdomen abdominal exam Overall: normal bowel sounds 02/03/2016 None Full Exam - General 1994 Musculoskeletal head and neck Overall: head atraumatic 02/03/2016 None Full Exam - General 1994 Musculoskeletal head and neck Overall: cervical spine benign 02/03/2016 None Full Exam - General 1994 Neurologic gait Overall: no ataxia, no unsteadiness 02/03/2016 None Full Exam - General 1994 Psychiatric orientation/consciousness Overall: oriented to person, place and time 02/03/2016 None Full Exam - General 1994 Psychiatric mood and affect Overall: normal mood and affect 02/03/2016 None Full Exam - General 1994 Respiratory auscultation Lower lung field: diminished 02/03/2016 None Full Exam - General 1994 Respiratory auscultation Lower lung field: crackles 02/03/2016 faint Full Exam - General 1994 Constitutional general appearance Overall: well developed 12/21/2015 None Full Exam - General 1994 Constitutional general appearance Overall: in no acute distress 12/21/2015 None Full Exam - General 1994 Constitutional general appearance Overall: well nourished 12/21/2015 None Full Exam - General 1994 Eyes pupils and irises Overall: pupils equal, round, reactive to light and accomodation 12/21/2015 None Full Exam - General 1994 Ears/Nose/Throat otoscopic exam Overall: external auditory canals clear 12/21/2015 None Full Exam - General 1994 Ears/Nose/Throat otoscopic exam Overall: tympanic membranes clear 12/21/2015 None Full Exam - General 1994 Respiratory auscultation Overall: breath sounds clear bilaterally 12/21/2015 None Full Exam - General 1994 Respiratory respiratory effort/rhythm Overall: no retractions 12/21/2015 None Full Exam - General 1994 Respiratory respiratory effort/rhythm Overall: normal rate 12/21/2015 None Full Exam - General 1994 Cardiovascular auscultation of heart Overall: regular rate 12/21/2015 None Full Exam - General 1994 Cardiovascular auscultation of heart Overall: normal heart sounds 12/21/2015 None Full Exam - General 1994 Abdomen abdominal exam Overall: no tenderness 12/21/2015 None Full Exam - General 1994 Abdomen abdominal exam Overall: normal bowel sounds 12/21/2015 None Full Exam - General 1994 Musculoskeletal head and neck Overall: head atraumatic 12/21/2015 None Full Exam - General 1994 Musculoskeletal head and neck Overall: cervical spine benign 12/21/2015 None Full Exam - General 1994 Neurologic gait Overall: no ataxia, no unsteadiness 12/21/2015 None Full Exam - General 1994 Psychiatric orientation/consciousness Overall: oriented to person, place and time 12/21/2015 None Full Exam - General 1994 Psychiatric mood and affect Overall: normal mood and affect 12/21/2015 None Full Exam - General 1994 Eyes pupils and irises Overall: pupils equal, round, reactive to light and accomodation 10/25/2015 None Full Exam - General 1994 Ears/Nose/Throat lips/teeth/gingiva Overall: benign lips 10/25/2015 None Full Exam - General 1994 Ears/Nose/Throat lips/teeth/gingiva Overall: normal dentition 10/25/2015 None Full Exam - General 1994 Respiratory auscultation Overall: breath sounds clear bilaterally 10/25/2015 None Full Exam - General 1994 Respiratory respiratory effort/rhythm Rate: tachypnea 10/25/2015 accessory muscle use -- Improved Full Exam - General 1994 Cardiovascular extremities Overall: no clubbing 10/25/2015 None Full Exam - General 1994 Cardiovascular auscultation of heart Overall: regular rate 10/25/2015 None Full Exam - General 1994 Cardiovascular auscultation of heart Overall: normal heart sounds 10/25/2015 None Full Exam - General 1994 Psychiatric orientation/consciousness Overall: oriented to person, place and time 10/25/2015 None Full Exam - General 1994 Psychiatric mood and affect Mood: anxious 10/25/2015 --Improved Full Exam - General 1994 Psychiatric mood and affect Mood: irritable 10/25/2015 --Improved Full Exam - General 1994 Psychiatric appearance Grooming: sickly 10/25/2015 --Improved Full Exam - General 1994 Constitutional general appearance Evidence of Distress: in no acute distress 10/25/2015 None Full Exam - General 1994 Abdomen abdominal exam Overall: no tenderness 10/25/2015 None Full Exam - General 1994 Abdomen abdominal exam Overall: normal bowel sounds 10/25/2015 None Full Exam - General 1994 Integument inspection of skin Overall: no rash, lesions 10/25/2015 None Full Exam - General 1994 Eyes pupils and irises Overall: pupils equal, round, reactive to light and accomodation 10/19/2015 None Full Exam - General 1994 Respiratory auscultation Overall: breath sounds clear bilaterally 10/19/2015 None Full Exam - General 1994 Cardiovascular auscultation of heart Overall: regular rate 10/19/2015 None Full Exam - General 1994 Cardiovascular auscultation of heart Overall: normal heart sounds 10/19/2015 None Full Exam - General 1994 Psychiatric orientation/consciousness Overall: oriented to person, place and time 10/19/2015 None Full Exam - General 1994 Constitutional general appearance Evidence of Distress: in acute distress 10/19/2015 None Full Exam - General 1994 Constitutional general appearance Evidence of Distress: in respiratory distress 10/19/2015 None Full Exam - General 1994 Constitutional general appearance Evidence of Distress: anxious 10/19/2015 None Full Exam - General 1994 Constitutional general appearance Evidence of Distress: agitated 10/19/2015 None Full Exam - General 1994 Ears/Nose/Throat lips/teeth/gingiva Overall: benign lips 10/19/2015 None Full Exam - General 1994 Ears/Nose/Throat lips/teeth/gingiva Overall: normal dentition 10/19/2015 None Full Exam - General 1994 Respiratory respiratory effort/rhythm Rate: tachypnea 10/19/2015 accessory muscle use Full Exam - General 1994 Cardiovascular extremities Overall: no clubbing 10/19/2015 None Full Exam - General 1994 Psychiatric mood and affect Mood: anxious 10/19/2015 None Full Exam - General 1994 Psychiatric mood and affect Mood: irritable 10/19/2015 None Full Exam - General 1994 Psychiatric appearance Grooming: sickly 10/19/2015 None Full Exam - General 1994 Constitutional general appearance Overall: well developed 06/22/2015 None Full Exam - General 1994 Constitutional general appearance Overall: in no acute distress 06/22/2015 None Full Exam - General 1994 Constitutional general appearance Overall: well nourished 06/22/2015 None Full Exam - General 1994 Eyes pupils and irises Overall: pupils equal, round, reactive to light and accomodation 06/22/2015 None Full Exam - General 1994 Ears/Nose/Throat otoscopic exam Overall: external auditory canals clear 06/22/2015 None Full Exam - General 1994 Ears/Nose/Throat otoscopic exam Overall: tympanic membranes clear 06/22/2015 None Full Exam - General 1994 Respiratory auscultation Overall: breath sounds clear bilaterally 06/22/2015 None Full Exam - General 1994 Respiratory respiratory effort/rhythm Overall: no retractions 06/22/2015 None Full Exam - General 1994 Respiratory respiratory effort/rhythm Overall: normal rate 06/22/2015 None Full Exam - General 1994 Cardiovascular auscultation of heart Overall: regular rate 06/22/2015 None Full Exam - General 1994 Cardiovascular auscultation of heart Overall: normal heart sounds 06/22/2015 None Full Exam - General 1994 Abdomen abdominal exam Overall: no tenderness 06/22/2015 None Full Exam - General 1994 Abdomen abdominal exam Overall: normal bowel sounds 06/22/2015 None Full Exam - General 1994 Musculoskeletal head and neck Overall: head atraumatic 06/22/2015 None Full Exam - General 1994 Musculoskeletal head and neck Overall: cervical spine benign 06/22/2015 None Full Exam - General 1994 Neurologic gait Overall: no ataxia, no unsteadiness 06/22/2015 None Full Exam - General 1994 Psychiatric orientation/consciousness Overall: oriented to person, place and time 06/22/2015 None Full Exam - General 1994 Psychiatric mood and affect Overall: normal mood and affect 06/22/2015 None Full Exam - General 1994 Constitutional general appearance Overall: well developed 12/22/2014 None Full Exam - General 1994 Constitutional general appearance Overall: in no acute distress 12/22/2014 None Full Exam - General 1994 Constitutional general appearance Overall: well nourished 12/22/2014 None Full Exam - General 1994 Eyes pupils and irises Overall: pupils equal, round, reactive to light and accomodation 12/22/2014 None Full Exam - General 1994 Ears/Nose/Throat otoscopic exam Overall: external auditory canals clear 12/22/2014 None Full Exam - General 1994 Ears/Nose/Throat otoscopic exam Overall: tympanic membranes clear 12/22/2014 None Full Exam - General 1994 Respiratory auscultation Overall: breath sounds clear bilaterally 12/22/2014 None Full Exam - General 1994 Respiratory respiratory effort/rhythm Overall: no retractions 12/22/2014 None Full Exam - General 1994 Respiratory respiratory effort/rhythm Overall: normal rate 12/22/2014 None Full Exam - General 1994 Cardiovascular auscultation of heart Overall: regular rate 12/22/2014 None Full Exam - General 1994 Cardiovascular auscultation of heart Overall: normal heart sounds 12/22/2014 None Full Exam - General 1994 Abdomen abdominal exam Overall: no tenderness 12/22/2014 None Full Exam - General 1994 Abdomen abdominal exam Overall: normal bowel sounds 12/22/2014 None Full Exam - General 1994 Musculoskeletal head and neck Overall: head atraumatic 12/22/2014 None Full Exam - General 1994 Musculoskeletal head and neck Overall: cervical spine benign 12/22/2014 None Full Exam - General 1994 Neurologic gait Overall: no ataxia, no unsteadiness 12/22/2014 None Full Exam - General 1994 Psychiatric orientation/consciousness Overall: oriented to person, place and time 12/22/2014 None Full Exam - General 1994 Psychiatric mood and affect Overall: normal mood and affect 12/22/2014 None Full Exam - General 1994 Constitutional general appearance Overall: well developed 08/17/2014 None Full Exam - General 1994 Constitutional general appearance Overall: in no acute distress 08/17/2014 None Full Exam - General 1994 Constitutional general appearance Overall: well nourished 08/17/2014 None Full Exam - General 1994 Eyes pupils and irises Overall: pupils equal, round, reactive to light and accomodation 08/17/2014 None Full Exam - General 1994 Ears/Nose/Throat otoscopic exam Overall: external auditory canals clear 08/17/2014 None Full Exam - General 1994 Ears/Nose/Throat otoscopic exam Overall: tympanic membranes clear 08/17/2014 None Full Exam - General 1994 Respiratory respiratory effort/rhythm Overall: no retractions 08/17/2014 None Full Exam - General 1994 Respiratory respiratory effort/rhythm Overall: normal rate 08/17/2014 None Full Exam - General 1994 Cardiovascular auscultation of heart Overall: regular rate 08/17/2014 None Full Exam - General 1994 Cardiovascular auscultation of heart Overall: normal heart sounds 08/17/2014 None Full Exam - General 1994 Abdomen abdominal exam Overall: no tenderness 08/17/2014 None Full Exam - General 1994 Abdomen abdominal exam Overall: normal bowel sounds 08/17/2014 None Full Exam - General 1994 Musculoskeletal head and neck Overall: head atraumatic 08/17/2014 None Full Exam - General 1994 Musculoskeletal head and neck Overall: cervical spine benign 08/17/2014 None Full Exam - General 1994 Neurologic gait Overall: no ataxia, no unsteadiness 08/17/2014 None Full Exam - General 1994 Psychiatric orientation/consciousness Overall: oriented to person, place and time 08/17/2014 None Full Exam - General 1994 Psychiatric mood and affect Overall: normal mood and affect 08/17/2014 None Full Exam - General 1994 Respiratory auscultation Upper lung field: inspiratory wheezes 08/17/2014 None Full Exam - General 1994 Respiratory auscultation Upper lung field: expiratory wheezes 08/17/2014 None Full Exam - General 1994 Respiratory auscultation Lower lung field: inspiratory wheezes 08/17/2014 None Full Exam - General 1994 Respiratory auscultation Lower lung field: expiratory wheezes 08/17/2014 None Full Exam - General 1994 Constitutional general appearance Overall: well developed 04/13/2014 None Full Exam - General 1994 Constitutional general appearance Overall: in no acute distress 04/13/2014 None Full Exam - General 1994 Constitutional general appearance Overall: well nourished 04/13/2014 None Full Exam - General 1994 Eyes pupils and irises Overall: pupils equal, round, reactive to light and accomodation 04/13/2014 None Full Exam - General 1994 Ears/Nose/Throat otoscopic exam Overall: external auditory canals clear 04/13/2014 None Full Exam - General 1994 Ears/Nose/Throat otoscopic exam Overall: tympanic membranes clear 04/13/2014 None Full Exam - General 1994 Respiratory auscultation Overall: breath sounds clear bilaterally 04/13/2014 None Full Exam - General 1994 Respiratory respiratory effort/rhythm Overall: no retractions 04/13/2014 None Full Exam - General 1994 Respiratory respiratory effort/rhythm Overall: normal rate 04/13/2014 None Full Exam - General 1994 Cardiovascular auscultation of heart Overall: regular rate 04/13/2014 None Full Exam - General 1994 Cardiovascular auscultation of heart Overall: normal heart sounds 04/13/2014 None Full Exam - General 1994 Abdomen abdominal exam Overall: no tenderness 04/13/2014 None Full Exam - General 1994 Abdomen abdominal exam Overall: normal bowel sounds 04/13/2014 None Full Exam - General 1994 Musculoskeletal head and neck Overall: head atraumatic 04/13/2014 None Full Exam - General 1994 Musculoskeletal head and neck Overall: cervical spine benign 04/13/2014 None Full Exam - General 1994 Neurologic gait Overall: no ataxia, no unsteadiness 04/13/2014 None Full Exam - General 1994 Psychiatric orientation/consciousness Overall: oriented to person, place and time 04/13/2014 None Full Exam - General 1994 Psychiatric mood and affect Overall: normal mood and affect 04/13/2014 None Full Exam - General 1994 Constitutional general appearance Overall: well developed 12/11/2013 None Full Exam - General 1994 Constitutional general appearance Overall: in no acute distress 12/11/2013 None Full Exam - General 1994 Constitutional general appearance Overall: well nourished 12/11/2013 None Full Exam - General 1994 Eyes pupils and irises Overall: pupils equal, round, reactive to light and accomodation 12/11/2013 None Full Exam - General 1994 Ears/Nose/Throat otoscopic exam Overall: external auditory canals clear 12/11/2013 None Full Exam - General 1994 Ears/Nose/Throat otoscopic exam Overall: tympanic membranes clear 12/11/2013 None Full Exam - General 1994 Respiratory auscultation Overall: breath sounds clear bilaterally 12/11/2013 None Full Exam - General 1994 Respiratory respiratory effort/rhythm Overall: no retractions 12/11/2013 None Full Exam - General 1994 Respiratory respiratory effort/rhythm Overall: normal rate 12/11/2013 None Full Exam - General 1994 Cardiovascular auscultation of heart Overall: regular rate 12/11/2013 None Full Exam - General 1994 Cardiovascular auscultation of heart Overall: normal heart sounds 12/11/2013 None Full Exam - General 1994 Abdomen abdominal exam Overall: no tenderness 12/11/2013 None Full Exam - General 1994 Abdomen abdominal exam Overall: normal bowel sounds 12/11/2013 None Full Exam - General 1994 Musculoskeletal head and neck Overall: head atraumatic 12/11/2013 None Full Exam - General 1994 Musculoskeletal head and neck Overall: cervical spine benign 12/11/2013 None Full Exam - General 1994 Neurologic gait Overall: no ataxia, no unsteadiness 12/11/2013 None Full Exam - General 1994 Psychiatric orientation/consciousness Overall: oriented to person, place and time 12/11/2013 None Full Exam - General 1994 Psychiatric mood and affect Overall: normal mood and affect 12/11/2013 None Full Exam - General 1994 Constitutional general appearance Overall: well developed 11/10/2013 None Full Exam - General 1994 Constitutional general appearance Overall: in no acute distress 11/10/2013 None Full Exam - General 1994 Constitutional general appearance Overall: well nourished 11/10/2013 None Full Exam - General 1994 Eyes pupils and irises Overall: pupils equal, round, reactive to light and accomodation 11/10/2013 None Full Exam - General 1994 Ears/Nose/Throat otoscopic exam Overall: external auditory canals clear 11/10/2013 None Full Exam - General 1994 Ears/Nose/Throat otoscopic exam Overall: tympanic membranes clear 11/10/2013 None Full Exam - General 1994 Respiratory auscultation Overall: breath sounds clear bilaterally 11/10/2013 None Full Exam - General 1994 Respiratory respiratory effort/rhythm Overall: no retractions 11/10/2013 None Full Exam - General 1994 Respiratory respiratory effort/rhythm Overall: normal rate 11/10/2013 None Full Exam - General 1994 Cardiovascular auscultation of heart Overall: regular rate 11/10/2013 None Full Exam - General 1994 Cardiovascular auscultation of heart Overall: normal heart sounds 11/10/2013 None Full Exam - General 1994 Abdomen abdominal exam Overall: no tenderness 11/10/2013 None Full Exam - General 1994 Abdomen abdominal exam Overall: normal bowel sounds 11/10/2013 None Full Exam - General 1994 Musculoskeletal head and neck Overall: head atraumatic 11/10/2013 None Full Exam - General 1994 Musculoskeletal head and neck Overall: cervical spine benign 11/10/2013 None Full Exam - General 1994 Neurologic gait Overall: no ataxia, no unsteadiness 11/10/2013 None Full Exam - General 1994 Psychiatric orientation/consciousness Overall: oriented to person, place and time 11/10/2013 None Full Exam - General 1994 Psychiatric mood and affect Overall: normal mood and affect 11/10/2013 None Full Exam - General 1994 Constitutional general appearance Overall: well developed 08/11/2013 None Full Exam - General 1994 Constitutional general appearance Overall: in no acute distress 08/11/2013 None Full Exam - General 1994 Constitutional general appearance Overall: well nourished 08/11/2013 None Full Exam - General 1994 Eyes pupils and irises Overall: pupils equal, round, reactive to light and accomodation 08/11/2013 None Full Exam - General 1994 Ears/Nose/Throat otoscopic exam Overall: external auditory canals clear 08/11/2013 None Full Exam - General 1994 Ears/Nose/Throat otoscopic exam Overall: tympanic membranes clear 08/11/2013 None Full Exam - General 1994 Respiratory auscultation Overall: breath sounds clear bilaterally 08/11/2013 None Full Exam - General 1994 Respiratory respiratory effort/rhythm Overall: no retractions 08/11/2013 None Full Exam - General 1994 Respiratory respiratory effort/rhythm Overall: normal rate 08/11/2013 None Full Exam - General 1994 Cardiovascular auscultation of heart Overall: regular rate 08/11/2013 None Full Exam - General 1994 Cardiovascular auscultation of heart Overall: normal heart sounds 08/11/2013 None Full Exam - General 1994 Abdomen abdominal exam Overall: no tenderness 08/11/2013 None Full Exam - General 1994 Abdomen abdominal exam Overall: normal bowel sounds 08/11/2013 None Full Exam - General 1995 Musculoskeletal head and neck Overall: head atraumatic 08/11/2013 None Full Exam - General 1994 Musculoskeletal head and neck Overall: cervical spine benign 08/11/2013 None Full Exam - General 1994 Neurologic gait Overall: no ataxia, no unsteadiness 08/11/2013 None Full Exam - General 1994 Psychiatric orientation/consciousness Overall: oriented to person, place and time 08/11/2013 None Full Exam - General 1994 Psychiatric mood and affect Overall: normal mood and affect 08/11/2013 None Full Exam - General 1994 Constitutional general appearance Overall: well developed 05/12/2013 None Full Exam - General 1995 Constitutional general appearance Overall: in no acute distress 05/12/2013 None Full Exam - General 1995 Constitutional general appearance Overall: well nourished 05/12/2013 None Full Exam - General 1994 Eyes pupils and irises Overall: pupils equal, round, reactive to light and accomodation 05/12/2013 None Full Exam - General 1994 Ears/Nose/Throat otoscopic exam Overall: external auditory canals clear 05/12/2013 None Full Exam - General 1994 Ears/Nose/Throat otoscopic exam Overall: tympanic membranes clear 05/12/2013 None Full Exam - General 1994 Respiratory auscultation Overall: breath sounds clear bilaterally 05/12/2013 None Full Exam - General 1994 Respiratory respiratory effort/rhythm Overall: no retractions 05/12/2013 None Full Exam - General 1994 Respiratory respiratory effort/rhythm Overall: normal rate 05/12/2013 None Full Exam - General 1994 Cardiovascular auscultation of heart Overall: regular rate 05/12/2013 None Full Exam - General 1994 Cardiovascular auscultation of heart Overall: normal heart sounds 05/12/2013 None Full Exam - General 1994 Abdomen abdominal exam Overall: no tenderness 05/12/2013 None Full Exam - General 1994 Abdomen abdominal exam Overall: normal bowel sounds 05/12/2013 None Full Exam - General 1994 Musculoskeletal head and neck Overall: head atraumatic 05/12/2013 None Full Exam - General 1994 Musculoskeletal head and neck Overall: cervical spine benign 05/12/2013 None Full Exam - General 1994 Neurologic gait Overall: no ataxia, no unsteadiness 05/12/2013 None Full Exam - General 1994 Psychiatric orientation/consciousness Overall: oriented to person, place and time 05/12/2013 None Full Exam - General 1994 Psychiatric mood and affect Overall: normal mood and affect 05/12/2013 None Full Exam - Cardiology Eyes conjunctiva/ eyelids Overall: conjunctiva clear 01/06/2013 None Full Exam - Cardiology Ears/Nose/Throat oral mucosa Overall: oral mucosa clear 01/06/2013 None Full Exam - Cardiology Respiratory respiratory effort/rhythm Overall: no retractions 01/06/2013 None Full Exam - Cardiology Respiratory respiratory effort/rhythm Overall: normal rate 01/06/2013 None Full Exam - Cardiology Respiratory auscultation Diffuse: inspiratory wheezes 01/06/2013 None Full Exam - Cardiology Respiratory auscultation Diffuse: expiratory wheezes 01/06/2013 None Full Exam - Cardiology Cardiovascular auscultation of heart Overall: regular rate 01/06/2013 None Full Exam - Cardiology Cardiovascular auscultation of heart Overall: normal heart sounds 01/06/2013 None Full Exam - Cardiology Musculoskeletal back Posture: lordosis 01/06/2013 None Full Exam - Cardiology Neurologic cranial nerves Overall: cranial nerves 2- 12 grossly intact 01/06/2013 None Full Exam - Cardiology Psychiatric orientation/consciousness Overall: oriented to person, place and time 01/06/2013 None Full Exam - Cardiology Constitutional general appearance Overall: well nourished 01/06/2013 None Full Exam - Cardiology Constitutional general appearance Overall: well developed 01/06/2013 None Full Exam - Cardiology Constitutional general appearance Overall: in no acute distress 01/06/2013 None Full Exam - Cardiology Eyes conjunctiva/ eyelids Overall: conjunctiva clear 10/07/2012 None Full Exam - Cardiology Ears/Nose/Throat oral mucosa Overall: oral mucosa clear 10/07/2012 None Full Exam - Cardiology Respiratory respiratory effort/rhythm Overall: no retractions 10/07/2012 None Full Exam - Cardiology Respiratory respiratory effort/rhythm Overall: normal rate 10/07/2012 None Full Exam - Cardiology Cardiovascular auscultation of heart Overall: regular rate 10/07/2012 None Full Exam - Cardiology Cardiovascular auscultation of heart Overall: normal heart sounds 10/07/2012 None Full Exam - Cardiology Musculoskeletal back Posture: lordosis 10/07/2012 None Full Exam - Cardiology Neurologic cranial nerves Overall: cranial nerves 2- 12 grossly intact 10/07/2012 None Full Exam - Cardiology Psychiatric orientation/consciousness Overall: oriented to person, place and time 10/07/2012 None Full Exam - Cardiology Constitutional general appearance Overall: well nourished 10/07/2012 None Full Exam - Cardiology Constitutional general appearance Overall: well developed 10/07/2012 None Full Exam - Cardiology Constitutional general appearance Overall: in no acute distress 10/07/2012 None Full Exam - Cardiology Respiratory auscultation Diffuse: inspiratory wheezes 10/07/2012 None Full Exam - Cardiology Respiratory auscultation Diffuse: expiratory wheezes 10/07/2012 None Full Exam - General 1995 Ears/Nose/Throat otoscopic exam Overall: tympanic membranes clear 09/11/2012 None Full Exam - General 1995 Respiratory auscultation Overall: breath sounds clear bilaterally 09/11/2012 None Full Exam - General 1995 Respiratory respiratory effort/rhythm Overall: no retractions 09/11/2012 None Full Exam - General 1995 Respiratory respiratory effort/rhythm Overall: normal rate 09/11/2012 None Full Exam - General 1995 Cardiovascular auscultation of heart Overall: regular rate 09/11/2012 None Full Exam - General 1995 Cardiovascular auscultation of heart Overall: normal heart sounds 09/11/2012 None Full Exam - General 1995 Abdomen abdominal exam Overall: no tenderness 09/11/2012 None Full Exam - General 1995 Abdomen abdominal exam Overall: normal bowel sounds 09/11/2012 None Full Exam - General 1995 Musculoskeletal head and neck Overall: head atraumatic 09/11/2012 None Full Exam - General 1995 Musculoskeletal head and neck Overall: cervical spine benign 09/11/2012 None Full Exam - General 1994 Neurologic gait Overall: no ataxia, no unsteadiness 09/11/2012 None Full Exam - General 1994 Psychiatric orientation/consciousness Overall: oriented to person, place and time 09/11/2012 None Full Exam - General 1994 Psychiatric mood and affect Overall: normal mood and affect 09/11/2012 None Full Exam - General 1994 Chest/Breast breast/chest inspection Overall: breasts to symmetric and without lesions 09/11/2012 None Full Exam - General 1994 Constitutional general appearance Overall: well developed 09/11/2012 None Full Exam - General 1994 Constitutional general appearance Overall: in no acute distress 09/11/2012 None Full Exam - General 1994 Constitutional general appearance Overall: well nourished 09/11/2012 None Full Exam - General 1994 Eyes pupils and irises Overall: pupils equal, round, reactive to light and accomodation 09/11/2012 None Full Exam - General 1994 Ears/Nose/Throat otoscopic exam Overall: external auditory canals clear 09/11/2012 None Full Exam - General 1994 Chest/Breast breast/chest inspection Skin appearance: thickened 09/11/2012 in upper right chest and neck Full Exam - General 1995 Abdomen abdominal exam Overall: normal bowel sounds 07/15/2012 None Full Exam - General 1995 Musculoskeletal head and neck Overall: head atraumatic 07/15/2012 None Full Exam - General 1995 Musculoskeletal head and neck Overall: cervical spine benign 07/15/2012 None Full Exam - General 1995 Neurologic gait Overall: no ataxia, no unsteadiness 07/15/2012 None Full Exam - General 1995 Psychiatric orientation/consciousness Overall: oriented to person, place and time 07/15/2012 None Full Exam - General 1995 Psychiatric mood and affect Overall: normal mood and affect 07/15/2012 None Full Exam - General 1995 Constitutional general appearance Overall: well developed 07/15/2012 None Full Exam - General 1994 Constitutional general appearance Overall: in no acute distress 07/15/2012 None Full Exam - General 1995 Constitutional general appearance Overall: well nourished 07/15/2012 None Full Exam - General 1994 Eyes pupils and irises Overall: pupils equal, round, reactive to light and accomodation 07/15/2012 None Full Exam - General 1995 Ears/Nose/Throat otoscopic exam Overall: external auditory canals clear 07/15/2012 None Full Exam - General 1995 Ears/Nose/Throat otoscopic exam Overall: tympanic membranes clear 07/15/2012 None Full Exam - General 1994 Respiratory auscultation Overall: breath sounds clear bilaterally 07/15/2012 None Full Exam - General 1994 Respiratory respiratory effort/rhythm Overall: no retractions 07/15/2012 None Full Exam - General 1994 Respiratory respiratory effort/rhythm Overall: normal rate 07/15/2012 None Full Exam - General 1994 Cardiovascular auscultation of heart Overall: regular rate 07/15/2012 None Full Exam - General 1994 Cardiovascular auscultation of heart Overall: normal heart sounds 07/15/2012 None Full Exam - General 1994 Abdomen abdominal exam Overall: no tenderness 07/15/2012 None Full Exam - General 1994 Constitutional general appearance Overall: well developed 05/02/2012 None Full Exam - General 1994 Constitutional general appearance Overall: in no acute distress 05/02/2012 None Full Exam - General 1994 Constitutional general appearance Overall: well nourished 05/02/2012 None Full Exam - General 1994 Eyes pupils and irises Overall: pupils equal, round, reactive to light and accomodation 05/02/2012 None Full Exam - General 1995 Ears/Nose/Throat otoscopic exam Overall: external auditory canals clear 05/02/2012 None Full Exam - General 1994 Ears/Nose/Throat otoscopic exam Overall: tympanic membranes clear 05/02/2012 None Full Exam - General 1994 Respiratory auscultation Overall: breath sounds clear bilaterally 05/02/2012 None Full Exam - General 1994 Respiratory respiratory effort/rhythm Overall: no retractions 05/02/2012 None Full Exam - General 1994 Respiratory respiratory effort/rhythm Overall: normal rate 05/02/2012 None Full Exam - General 1994 Cardiovascular auscultation of heart Overall: regular rate 05/02/2012 None Full Exam - General 1994 Cardiovascular auscultation of heart Overall: normal heart sounds 05/02/2012 None Full Exam - General 1994 Abdomen abdominal exam Overall: no tenderness 05/02/2012 None Full Exam - General 1994 Abdomen abdominal exam Overall: normal bowel sounds 05/02/2012 None Full Exam - General 1994 Musculoskeletal head and neck Overall: head atraumatic 05/02/2012 None Full Exam - General 1994 Musculoskeletal head and neck Overall: cervical spine benign 05/02/2012 None Full Exam - General 1994 Neurologic gait Overall: no ataxia, no unsteadiness 05/02/2012 None Full Exam - General 1994 Psychiatric orientation/consciousness Overall: oriented to person, place and time 05/02/2012 None Full Exam - General 1994 Psychiatric mood and affect Overall: normal mood and affect 05/02/2012 None Full Exam - General 1994 Constitutional general appearance Overall: well nourished 03/28/2012 None Full Exam - General 1994 Constitutional general appearance Overall: well developed 03/28/2012 None Full Exam - General 1994 Constitutional general appearance Overall: in no acute distress 03/28/2012 None Full Exam - General 1994 Eyes pupils and irises Overall: pupils equal, round, reactive to light and accomodation 03/28/2012 None Full Exam - General 1994 Ears/Nose/Throat otoscopic exam Overall: external auditory canals clear 03/28/2012 None Full Exam - General 1994 Psychiatric mood and affect Overall: normal mood and affect 03/28/2012 None Full Exam - General 1994 Ears/Nose/Throat otoscopic exam Overall: tympanic membranes clear 03/28/2012 None Full Exam - General 1994 Respiratory auscultation Overall: breath sounds clear bilaterally 03/28/2012 None Full Exam - General 1994 Respiratory respiratory effort/rhythm Overall: no retractions 03/28/2012 None Full Exam - General 1994 Respiratory respiratory effort/rhythm Overall: normal rate 03/28/2012 None Full Exam - General 1994 Cardiovascular auscultation of heart Overall: regular rate 03/28/2012 None Full Exam - General 1994 Cardiovascular auscultation of heart Overall: normal heart sounds 03/28/2012 None Full Exam - General 1994 Abdomen abdominal exam Overall: no tenderness 03/28/2012 None Full Exam - General 1994 Abdomen abdominal exam Overall: normal bowel sounds 03/28/2012 None Full Exam - General 1994 Musculoskeletal head and neck Overall: head atraumatic 03/28/2012 None Full Exam - General 1994 Musculoskeletal head and neck Overall: cervical spine benign 03/28/2012 None Full Exam - General 1994 Neurologic gait Overall: no ataxia, no unsteadiness 03/28/2012 None Full Exam - General 1994 Psychiatric orientation/consciousness Overall: oriented to person, place and time 03/28/2012 None Full Exam - Cardiology Eyes conjunctiva/ eyelids Overall: conjunctiva clear 11/27/2011 None Full Exam - Cardiology Ears/Nose/Throat oral mucosa Overall: oral mucosa clear 11/27/2011 None Full Exam - Cardiology Respiratory respiratory effort/rhythm Overall: no retractions 11/27/2011 None Full Exam - Cardiology Respiratory respiratory effort/rhythm Overall: normal rate 11/27/2011 None Full Exam - Cardiology Respiratory auscultation Overall: breath sounds clear bilaterally 11/27/2011 None Full Exam - Cardiology Cardiovascular auscultation of heart Overall: regular rate 11/27/2011 None Full Exam - Cardiology Cardiovascular auscultation of heart Overall: normal heart sounds 11/27/2011 None Full Exam - Cardiology Musculoskeletal back Posture: lordosis 11/27/2011 None Full Exam - Cardiology Neurologic cranial nerves Overall: cranial nerves 2- 12 grossly intact 11/27/2011 None Full Exam - Cardiology Psychiatric orientation/consciousness Overall: oriented to person, place and time 11/27/2011 None Full Exam - Cardiology Constitutional general appearance Overall: well nourished 11/27/2011 None Full Exam - Cardiology Constitutional general appearance Overall: well developed 11/27/2011 None Full Exam - Cardiology Constitutional general appearance Overall: in no acute distress 11/27/2011 None Full Exam - Cardiology Abdomen abdominal exam Overall: no tenderness 11/27/2011 None Full Exam - Cardiology Abdomen abdominal exam Overall: normal bowel sounds 11/27/2011 None Full Exam - General 1994 Ears/Nose/Throat otoscopic exam Overall: tympanic membranes clear 10/25/2011 None Full Exam - General 1994 Respiratory auscultation Overall: breath sounds clear bilaterally 10/25/2011 None Full Exam - General 1994 Respiratory respiratory effort/rhythm Overall: no retractions 10/25/2011 None Full Exam - General 1994 Respiratory respiratory effort/rhythm Overall: normal rate 10/25/2011 None Full Exam - General 1994 Cardiovascular auscultation of heart Overall: regular rate 10/25/2011 None Full Exam - General 1994 Cardiovascular auscultation of heart Overall: normal heart sounds 10/25/2011 None Full Exam - General 1994 Abdomen abdominal exam Overall: no tenderness 10/25/2011 None Full Exam - General 1994 Abdomen abdominal exam Overall: normal bowel sounds 10/25/2011 None Full Exam - General 1994 Musculoskeletal head and neck Overall: head atraumatic 10/25/2011 None Full Exam - General 1994 Musculoskeletal head and neck Overall: cervical spine benign 10/25/2011 None Full Exam - General 1994 Neurologic gait Overall: no ataxia, no unsteadiness 10/25/2011 None Full Exam - General 1994 Psychiatric orientation/consciousness Overall: oriented to person, place and time 10/25/2011 None Full Exam - General 1994 Psychiatric mood and affect Overall: normal mood and affect 10/25/2011 None Full Exam - General 1994 Constitutional general appearance Overall: well nourished 10/25/2011 None Full Exam - General 1994 Constitutional general appearance Overall: well developed 10/25/2011 None Full Exam - General 1994 Constitutional general appearance Overall: in no acute distress 10/25/2011 None Full Exam - General 1994 Eyes pupils and irises Overall: pupils equal, round, reactive to light and accomodation 10/25/2011 None Full Exam - General 1994 Ears/Nose/Throat otoscopic exam Overall: external auditory canals clear 10/25/2011 None Full Exam - General 1994 Constitutional general appearance Overall: well nourished 10/11/2011 None Full Exam - General 1994 Constitutional general appearance Overall: well developed 10/11/2011 None Full Exam - General 1994 Constitutional general appearance Overall: in no acute distress 10/11/2011 None Full Exam - General 1994 Eyes pupils and irises Overall: pupils equal, round, reactive to light and accomodation 10/11/2011 None Full Exam - General 1994 Abdomen abdominal exam Overall: no tenderness 10/11/2011 None Full Exam - General 1994 Abdomen abdominal exam Overall: normal bowel sounds 10/11/2011 None Full Exam - General 1994 Neurologic gait Overall: no ataxia, no unsteadiness 10/11/2011 None Full Exam - General 1994 Psychiatric orientation/consciousness Overall: oriented to person, place and time 10/11/2011 None Full Exam - General 1994 Psychiatric mood and affect Mood: happy 10/11/2011 None Full Exam - General 1994 Psychiatric mood and affect Overall: normal mood and affect 10/11/2011 None Full Exam - General 1994 Eyes conjunctiva /eyelids Overall: conjunctiva clear 10/11/2011 None Full Exam - General 1994 Eyes conjunctiva /eyelids Overall: cornea clear 10/11/2011 None Full Exam - General 1994 Ears/Nose/Throat otoscopic exam Overall: tympanic membranes clear 10/11/2011 None Full Exam - General 1994 Ears/Nose/Throat otoscopic exam Overall: external auditory canals clear 10/11/2011 None Full Exam - General 1994 Ears/Nose/Throat oral cavity/pharynx/larynx Overall: oropharyngeal mucosa clear 10/11/2011 None Full Exam - General 1994 Ears/Nose/Throat oral cavity/pharynx/larynx Overall: no masses 10/11/2011 None Full Exam - General 1995 Ears/Nose/Throat oral cavity/pharynx/larynx Overall: oral mucosa clear 10/11/2011 None Full Exam - General 1994 Respiratory auscultation Overall: breath sounds clear bilaterally 10/11/2011 None Full Exam - General 1994 Respiratory respiratory effort/rhythm Overall: normal rate 10/11/2011 None Full Exam - General 1994 Respiratory respiratory effort/rhythm Overall: no retractions 10/11/2011 None Full Exam - General 1994 Cardiovascular auscultation of heart Overall: regular rate 10/11/2011 None Full Exam - General 1994 Cardiovascular auscultation of heart Overall: normal heart sounds 10/11/2011 None Full Exam - General 1994 Cardiovascular extremities Overall: no clubbing 10/11/2011 None Full Exam - Cardiology Cardiovascular auscultation of heart Overall: regular rate 10/04/2011 None Full Exam - Cardiology Cardiovascular auscultation of heart Overall: normal heart sounds 10/04/2011 None Full Exam - Cardiology Constitutional general appearance Overall: well nourished 10/04/2011 None Full Exam - Cardiology Constitutional general appearance Overall: well developed 10/04/2011 None Full Exam - Cardiology Constitutional general appearance Overall: in no acute distress 10/04/2011 None Full Exam - Cardiology Ears/Nose/Throat oral mucosa Overall: oral mucosa clear 10/04/2011 None Full Exam - Cardiology Eyes conjunctiva/ eyelids Overall: conjunctiva clear 10/04/2011 None Full Exam - Cardiology Musculoskeletal back Posture: lordosis 10/04/2011 None Full Exam - Cardiology Neurologic cranial nerves Overall: cranial nerves 2- 12 grossly intact 10/04/2011 None Full Exam - Cardiology Psychiatric orientation/consciousness Overall: oriented to person, place and time 10/04/2011 None Full Exam - Cardiology Respiratory respiratory effort/rhythm Overall: no retractions 10/04/2011 None Full Exam - Cardiology Respiratory respiratory effort/rhythm Overall: normal rate 10/04/2011 None Full Exam - Cardiology Respiratory auscultation Overall: breath sounds clear bilaterally 10/04/2011 None Full Exam - Cardiology Abdomen abdominal exam Overall: normal bowel sounds 10/04/2011 None Full Exam - Cardiology Abdomen abdominal exam Epigastric: tender to palpation 10/04/2011 only MILDLY tender to palpation Full Exam - Cardiology Eyes conjunctiva/ eyelids Overall: eyelids normal 10/04/2011 None Full Exam - Cardiology Cardiovascular auscultation of heart Overall: regular rate 09/25/2011 None Full Exam - Cardiology Cardiovascular auscultation of heart Overall: normal heart sounds 09/25/2011 None Full Exam - Cardiology Constitutional general appearance Overall: well nourished 09/25/2011 None Full Exam - Cardiology Constitutional general appearance Overall: well developed 09/25/2011 None Full Exam - Cardiology Constitutional general appearance Overall: in no acute distress 09/25/2011 None Full Exam - Cardiology Ears/Nose/Throat oral mucosa Overall: oral mucosa clear 09/25/2011 None Full Exam - Cardiology Eyes conjunctiva/ eyelids Overall: conjunctiva clear 09/25/2011 None Full Exam - Cardiology Psychiatric orientation/consciousness Overall: oriented to person, place and time 09/25/2011 None Full Exam - Cardiology Respiratory respiratory effort/rhythm Overall: no retractions 09/25/2011 None Full Exam - Cardiology Respiratory respiratory effort/rhythm Overall: normal rate 09/25/2011 None Full Exam - Cardiology Respiratory auscultation Overall: breath sounds clear bilaterally 09/25/2011 None Full Exam - Cardiology Neurologic cranial nerves Overall: cranial nerves 2- 12 grossly intact 09/25/2011 None Full Exam - Cardiology Musculoskeletal back Posture: lordosis 09/25/2011 None Full Exam - Cardiology Constitutional general appearance Overall: well nourished 07/31/2011 None Full Exam - Cardiology Constitutional general appearance Overall: well developed 07/31/2011 None Full Exam - Cardiology Musculoskeletal back Spine: tender @ cervical spine 07/31/2011 at the lateral region of the cervical spine upper neck musculature and into the occipital /splenius capitus musculature and trepezius musculature pt has multiple tender points. 8 spots identified in the upper neck and upper shoulder region on the left and these 8 points were injected with marcaine and kenalog. Full Exam - Cardiology Neurologic cranial nerves Overall: cranial nerves 2- 12 grossly intact 07/31/2011 None Full Exam - Cardiology Constitutional general appearance Overall: in no acute distress 07/31/2011 None Full Exam - Cardiology Eyes conjunctiva/ eyelids Overall: conjunctiva clear 07/31/2011 None Full Exam - Cardiology Ears/Nose/Throat oral mucosa Overall: oral mucosa clear 07/31/2011 None Full Exam - Cardiology Respiratory respiratory effort/rhythm Overall: no retractions 07/31/2011 None Full Exam - Cardiology Respiratory respiratory effort/rhythm Overall: normal rate 07/31/2011 None Full Exam - Cardiology Respiratory auscultation Overall: breath sounds clear bilaterally 07/31/2011 None Full Exam - Cardiology Cardiovascular auscultation of heart Overall: regular rate 07/31/2011 None Full Exam - Cardiology Cardiovascular auscultation of heart Overall: normal heart sounds 07/31/2011 None Full Exam - Cardiology Lymphatic neck nodes Overall: shotty lymphadenopathy. 07/31/2011 Tender to palpation left neck musculature. Full Exam - Cardiology Psychiatric orientation/consciousness Overall: oriented to person, place and time 07/31/2011 None Full Exam - Cardiology Musculoskeletal back Posture: lordosis 07/31/2011 None Full Exam - Cardiology Musculoskeletal back Spine: decreased extension 07/31/2011 None Full Exam - Cardiology Musculoskeletal back Spine: decreased flexion 07/31/2011 of the neck due to upper shoulder and neck pain on the left Full Exam - Cardiology Ears/Nose/Throat oral mucosa Overall: oral mucosa clear 05/22/2011 None Full Exam - Cardiology Respiratory auscultation Overall: breath sounds clear bilaterally 05/22/2011 None Full Exam - Cardiology Respiratory respiratory effort/rhythm Overall: no retractions 05/22/2011 None Full Exam - Cardiology Respiratory respiratory effort/rhythm Overall: normal rate 05/22/2011 None Full Exam - Cardiology Cardiovascular auscultation of heart Overall: normal heart sounds 05/22/2011 None Full Exam - Cardiology Cardiovascular auscultation of heart Overall: regular rate 05/22/2011 None Full Exam - Cardiology Psychiatric orientation/consciousness Overall: oriented to person, place and time 05/22/2011 None Full Exam - Cardiology Lymphatic neck nodes Overall: shotty lymphadenopathy. 05/22/2011 Tender to palpation left neck musculature. Full Exam - Cardiology Constitutional general appearance Overall: well nourished 05/22/2011 None Full Exam - Cardiology Constitutional general appearance Overall: well developed 05/22/2011 None Full Exam - Cardiology Constitutional general appearance Overall: in no acute distress 05/22/2011 None Full Exam - Cardiology Eyes conjunctiva/ eyelids Overall: conjunctiva clear 05/22/2011 None Full Exam - General 1994 Psychiatric orientation/consciousness Overall: oriented to person, place and time 05/05/2011 None Full Exam - General 1994 Psychiatric mood and affect Overall: normal mood and affect 05/05/2011 None Full Exam - General 1994 Neurologic gait Overall: no ataxia, no unsteadiness 05/05/2011 None Full Exam - General 1994 Musculoskeletal head and neck Overall: cervical spine benign 05/05/2011 None Full Exam - General 1994 Musculoskeletal head and neck Overall: head atraumatic 05/05/2011 None Full Exam - General 1994 Abdomen abdominal exam Overall: no tenderness 05/05/2011 None Full Exam - General 1994 Abdomen abdominal exam Overall: normal bowel sounds 05/05/2011 None Full Exam - General 1994 Cardiovascular auscultation of heart Overall: regular rate 05/05/2011 None Full Exam - General 1994 Cardiovascular auscultation of heart Overall: normal heart sounds 05/05/2011 None Full Exam - General 1994 Respiratory respiratory effort/rhythm Overall: normal rate 05/05/2011 None Full Exam - General 1994 Respiratory respiratory effort/rhythm Overall: no retractions 05/05/2011 None Full Exam - General 1994 Respiratory auscultation Overall: breath sounds clear bilaterally 05/05/2011 None Full Exam - General 1994 Constitutional general appearance Overall: well nourished 05/05/2011 None Full Exam - General 1994 Constitutional general appearance Overall: well developed 05/05/2011 None Full Exam - General 1994 Constitutional general appearance Overall: in no acute distress 05/05/2011 None Full Exam - General 1994 Eyes pupils and irises Overall: pupils equal, round, reactive to light and accomodation 05/05/2011 None Full Exam - General 1994 Ears/Nose/Throat otoscopic exam Overall: tympanic membranes clear 05/05/2011 None Full Exam - General 1994 Ears/Nose/Throat otoscopic exam Overall: external auditory canals clear 05/05/2011 None Procedures Procedure Codes Date REMOVAL OF IMPACTED WAX CPT-4: G0268 05/29/2017 THER/PROPH/DIAG INJ SC/IM CPT-4: 18595 05/14/2017 KETOROLAC TROMETHAMINE INJ CPT-4: J1885 05/14/2017 ADMIN INFLUENZA VIRUS VAC CPT-4: G0008 04/30/2017 FLU VACC PRSV FREE INC ANTIG CPT-4: 63465 04/30/2017 THER/PROPH/DIAG INJ SC/IM CPT-4: 88108 03/06/2017 TRIAMCINOLONE ACET INJ NOS CPT-4: J3301 03/06/2017 THER/PROPH/DIAG INJ SC/IM CPT-4: 59903 09/04/2016 TRIAMCINOLONE ACET INJ NOS CPT-4: J3301 09/04/2016 THER/PROPH/DIAG INJ SC/IM CPT-4: 65005 11/11/2015 TRIAMCINOLONE ACET INJ NOS CPT-4: J3301 11/11/2015 TRIAMCINOLONE ACET INJ NOS CPT-4: J3301 10/25/2015 THER/PROPH/DIAG INJ SC/IM CPT-4: 81853 10/25/2015 THER/PROPH/DIAG INJ SC/IM CPT-4: 72593 08/17/2014 TRIAMCINOLONE ACET INJ NOS CPT-4: J3301 08/17/2014 TRIAMCINOLONE ACET INJ NOS CPT-4: J3301 04/13/2014 THER/PROPH/DIAG INJ SC/IM CPT-4: 49015 04/13/2014 ROUTINE VENIPUNCTURE CPT-4: 55851 11/04/2013 ROUTINE VENIPUNCTURE CPT-4: 58983 05/12/2013 ADMIN INFLUENZA VIRUS VAC CPT-4: G0008 05/12/2013 FLULAVAL VACC, 3 YRS & >, IM CPT-4: Q2036 05/12/2013 TRIAMCINOLONE ACET INJ NOS CPT-4: J3301 10/07/2012 THER/PROPH/DIAG INJ SC/IM CPT-4: 68060 10/07/2012 ROUTINE VENIPUNCTURE CPT-4: 38133 08/27/2012 ROUTINE VENIPUNCTURE CPT-4: 50349 07/15/2012 ROUTINE VENIPUNCTURE CPT-4: 02267 03/26/2012 ADMIN INFLUENZA VIRUS VAC CPT-4: G0008 03/26/2012 FLULAVAL VACC, 3 YRS & >, IM CPT-4: Q2036 03/26/2012 Pneumococcal Polysaccharide Vaccine, 23-Valent, Ad CPT-4: 72576 03/26/2012 ROUTINE VENIPUNCTURE CPT-4: 04120 01/08/2012 ROUTINE VENIPUNCTURE CPT-4: 17803 11/06/2011 ROUTINE VENIPUNCTURE CPT-4: 02187 10/25/2011 ROUTINE VENIPUNCTURE CPT-4: 23972 10/16/2011 ROUTINE VENIPUNCTURE CPT-4: 24572 09/25/2011 INJ TRIGGER POINT 1/2 MUSCL CPT-4: 04907 07/31/2011 TRIAMCINOLONE ACET INJ NOS CPT-4: J3301 07/31/2011 PRESCRIP TRANSMIT VIA ERX SY CPT-4: G8553 05/22/2011 ADMIN INFLUENZA VIRUS VAC CPT-4: G0008 05/02/2011 FLULAVAL VACC, 3 YRS & >, IM CPT-4: Q2036 05/02/2011 ROUTINE VENIPUNCTURE CPT-4: 07059 05/02/2011 Vital Signs Date Vital 05/29/2017 Blood Pressure 1: 156/82 Code : 8480-6 BMI: 28.7 Code : 61180-1 Heart Rate 1 : 71 bpm Height: 5'1" SpO2: 96% Weight: 152 lbs 05/14/2017 Blood Pressure 1: 150/88 Code : 8480-6 BMI: 28.5 Code : 88811-2 Heart Rate 1 : 71 bpm Height: 5'1" SpO2: 98% Weight: 151 lbs 03/06/2017 Blood Pressure 1: 148/66 Code : 8480-6 BMI: 28.5 Code : 60238-4 Heart Rate 1 : 78 bpm Height: 5'1" SpO2: 98% Weight: 151 lbs 11/01/2016 Blood Pressure 1: 150/84 Code : 8480-6 BMI: 29.1 Code : 24173-0 Heart Rate 1 : 71 bpm Height: 5'1" SpO2: 97% Weight: 154 lbs 10/18/2016 Blood Pressure 1: 156/98 Code : 8480-6 Heart Rate 1: 68 bpm Height: 5'1" SpO2: 98% Weight: 10/12/2016 Blood Pressure 1: 142/76 Code : 8480-6 BMI: 30.0 Code : 35133-8 Heart Rate 1 : 76 bpm Height: 5'1" SpO2: 95% Weight: 159 lbs 09/04/2016 Blood Pressure 1: 120/70 Code : 8480-6 Blood Pressure 1: 148/84 Code: 8480-6 BMI: 30.0 Code: 61145-6 Heart Rate 1: 72 bpm Height: 5'1" SpO2: 94% Weight: 159 lbs 05/30/2016 Blood Pressure 1: 152/84 Code : 8480-6 BMI: 29.9 Code : 75973-3 Heart Rate 1 : 76 bpm Height: 5'1" SpO2: 97% Weight: 158 lbs 8 oz 05/01/2016 Blood Pressure 1: 146/60 Code : 8480-6 BMI: 29.9 Code : 67464-9 Heart Rate 1 : 72 bpm Height: 5'1" SpO2: 97% Weight: 158 lbs 02/29/2016 Blood Pressure 1: 152/82 Code : 8480-6 BMI: 30.4 Code : 81488-7 Heart Rate 1 : 71 bpm Height: 5'1" SpO2: 96% Weight: 161 lbs 02/03/2016 Blood Pressure 1: 148/88 Code : 8480-6 BMI: 30.6 Code : 21849-6 Heart Rate 1 : 72 bpm Height: 5'1" SpO2: 98% Weight: 162 lbs 12/21/2015 Blood Pressure 1: 180/78 Code : 8480-6 BMI: 30.9 Code : 41420-3 Heart Rate 1 : 64 bpm Height: 5'1" SpO2: 97% Weight: 163 lbs 8 oz 10/25/2015 Blood Pressure 1: 150/78 Code : 8480-6 BMI: 31.0 Code : 69423-1 Heart Rate 1 : 73 bpm Height: 5'1" SpO2: 98% Weight: 164 lbs 10/19/2015 Blood Pressure 1: 122/72 Code : 8480-6 BMI: 31.6 Code : 34575-6 Heart Rate 1 : 88 bpm Height: 5'1" SpO2: 98% Weight: 167 lbs 06/22/2015 Blood Pressure 1: 150/82 Code : 8480-6 BMI: 31.4 Code : 13366-5 Heart Rate 1 : 86 bpm Height: 5'1" SpO2: 96% Weight: 166 lbs 12/22/2014 Blood Pressure 1: 160/92 Code : 8480-6 BMI: 31.2 Code : 35213-9 Heart Rate 1 : 85 bpm Height: 5'1" SpO2: 97% Weight: 165 lbs 08/17/2014 Blood Pressure 1: 138/80 Code : 8480-6 BMI: 31.6 Code : 65183-8 Heart Rate 1 : 77 bpm Height: 5'1" SpO2: 97% Weight: 167 lbs 04/13/2014 Blood Pressure 1: 144/88 Code : 8480-6 BMI: 31.6 Code : 92621-6 Heart Rate 1 : 90 bpm Height: 5'1" Weight: 167 lbs 12/11/2013 Blood Pressure 1: 168/90 Code : 8480-6 BMI: 32.3 Code : 88169-0 Heart Rate 1 : 72 bpm Height: 5'1" Weight: 171 lbs 11/10/2013 Blood Pressure 1: 150/80 Code : 8480-6 BMI: 32.3 Code : 19776-2 Heart Rate 1 : 76 bpm Height: 5'1" Weight: 171 lbs 08/11/2013 Blood Pressure 1: 152/80 Code : 8480-6 BMI: 32.5 Code : 17964-6 Heart Rate 1 : 92 bpm Height: 5'1" Temperature: 36.7 (C) / 98.0 (F) Weight: 172 lbs 05/12/2013 Blood Pressure 1: 142/102 Code: 8480-6 Blood Pressure 2: 144/98 Code: 8480-6 BMI: 34.2 Code: 05635-9 Heart Rate 1: 80 bpm Height: 5'1" Weight: 181 lbs 01/06/2013 Blood Pressure 1: 138/76 Code : 8480-6 BMI: 34.6 Code : 81375-5 Heart Rate 1 : 64 bpm Height: 5'1" Weight: 183 lbs 10/07/2012 Blood Pressure 1: 146/76 Code : 8480-6 BMI: 35.6 Code : 45582-7 Heart Rate 1 : 76 bpm Height: 5'1" Respiratory Rate: 20 bpm Weight: 188 lbs 8 oz 09/11/2012 Blood Pressure 1: 158/92 Code : 8480-6 BMI: 35.7 Code : 95197-6 Heart Rate 1 : 76 bpm Height: 5'1" Weight: 189 lbs 07/15/2012 Blood Pressure 1: 158/100 Code: 8480-6 BMI: 36.3 Code: 67758-9 Heart Rate 1: 72 bpm Height: 5'1" Respiratory Rate: 20 bpm Weight: 192 lbs 05/02/2012 Blood Pressure 1: 156/80 Code : 8480-6 BMI: 35.9 Code : 41533-7 Heart Rate 1 : 72 bpm Height: 5'1" Weight: 190 lbs 03/28/2012 Blood Pressure 1: 133/88 Code : 8480-6 Heart Rate 1: 78 bpm Weight: 189 lbs 11/27/2011 Blood Pressure 1: 178/80 Code : 8480-6 BMI: 36.7 Code : 86638-1 Heart Rate 1 : 72 bpm Height: 5'1" Respiratory Rate: 20 bpm Weight: 194 lbs 10/25/2011 Blood Pressure 1: 122/62 Code : 8480-6 BMI: 37.0 Code : 80906-3 Heart Rate 1 : 80 bpm Height: 5'1" Respiratory Rate: 16 bpm Weight: 196 lbs 10/16/2011 Blood Pressure 1: 136/70 Code : 8480-6 Heart Rate 1: 76 bpm 10/11/2011 Blood Pressure 1: 132/60 Code : 8480-6 Heart Rate 1: 84 bpm Respiratory Rate : 20 bpm Weight: 194 lbs 10/04/2011 Blood Pressure 1: 152/90 Code : 8480-6 Heart Rate 1: 88 bpm Respiratory Rate : 20 bpm Weight: 193 lbs 09/25/2011 Blood Pressure 1: 146/78 Code : 8480-6 Heart Rate 1: 80 bpm Weight: 194 lbs 07/31/2011 Blood Pressure 1: 128/78 Code : 8480-6 Blood Pressure 2: / Code: 8480-6 BMI: 37.1 Code: 52816-3 Heart Rate 1: 72 bpm Height: 5'1" Respiratory Rate: 16 bpm SpO2: % Temperature : .0 (C) / 32.0 (F) Weight: 196 lbs 8 oz 05/22/2011 Blood Pressure 1: 147/71 Code : 8480-6 BMI: 18.7 Code : 51410-5 Heart Rate 1 : 77 bpm Height: 7'1" Weight: 192 lbs 05/05/2011 Blood Pressure 1: 178/88 Code : 8480-6 BMI: 37.4 Code : 65491-4 Heart Rate 1 : 80 bpm Height: 5' Respiratory Rate: 16 bpm Weight: 193 lbs Functional Status No Functional Status data History of Present Illness Symptom Name Status Result Effective Date Notes back pain Location in the right lower back area 05/29/2017 None back pain Quality acute 05/29/2017 None back pain Onset and Resolution sudden in onset 05/29/2017 None back pain Onset of Symptom 2 days ago 05/29/2017 None back pain Limitation on Activities moderately limits activities 05/29/2017 None back pain Triggers bending 05/29/2017 None back pain Triggers activity 05/29/2017 None back pain Location in the right lower back area 05/14/2017 None back pain Quality acute 05/14/2017 None back pain Onset and Resolution sudden in onset 05/14/2017 None back pain Onset of Symptom 2 days ago 05/14/2017 None back pain Limitation on Activities moderately limits activities 05/14/2017 None back pain Triggers bending 05/14/2017 None back pain Triggers activity 05/14/2017 None back pain Mechanism of injury unknown 05/14/2017 None diabetes mellitus Onset of Symptom onset as an adult 03/06/2017 None diabetes mellitus Quality non-insulin dependent 03/06/2017 None diabetes mellitus Severity moderate 03/06/2017 None diabetes mellitus Nutrition regular diet 03/06/2017 None diabetes mellitus Test results Pt checking blood glucose at home, see scanned readings 2016 None diabetes mellitus Glucose monitoring daily 03/06/2017 None wheezing Location diffusely 03/06/2017 None wheezing Quality constant 03/06/2017 None wheezing Onset and Resolution sudden in onset 03/06/2017 None wheezing Onset of Symptom 1 months ago 03/06/2017 None wheezing Frequency of Episodes daily 03/06/2017 None Hospital Follow Up _ Other: acute dyspnea and acute abdominal pain 11/01/2016 None Hospital Follow Up Quality acute 11/01/2016 None Hospital Follow Up Quality improving 11/01/2016 None Hospital Follow Up Onset of Symptom 2 weeks ago 11/01/2016 None Hospital Follow Up Severity moderate 11/01/2016 None cough Quality acute None dyspnea Quality breathlessness 10/18/2016 None dyspnea Quality intermittent 10/18/2016 None dyspnea Pertinent Findings cough 10/18/2016 None cough Quality intermittent 10/18/2016 None cough Quality productive 10/18/2016 None cough Onset and Resolution ongoing 10/18/2016 None cough Pertinent Findings sputum production 10/18/2016 (yellowish) cough Pertinent Findings chills 10/18/2016 None dyspnea Quality labored breathing 10/18/2016 None dyspnea Quality shortness of breath 10/18/2016 None dyspnea Quality acute 10/18/2016 None dyspnea Onset and Resolution ongoing 10/18/2016 None dyspnea Limitation on Activities is incapacitating 10/18/2016 None dyspnea Exacerbating Factors exertion 10/18/2016 None cough Location in the lung 10/12/2016 None cough Quality acute None cough Pertinent Findings Denies fever 10/12/2016 None dyspnea Quality chest tightness 10/12/2016 None dyspnea Quality breathlessness 10/12/2016 None dyspnea Quality intermittent 10/12/2016 None dyspnea Pertinent Findings Denies fever 10/12/2016 None dyspnea Pertinent Findings cough 10/12/2016 None diabetes mellitus Onset of Symptom onset as an adult 09/04/2016 None diabetes mellitus Quality non-insulin dependent 09/04/2016 None diabetes mellitus Severity moderate 09/04/2016 None diabetes mellitus Blood glucose levels greater than 120 09/04/2016 None diabetes mellitus Glucose monitoring occasional glucose testing 09/04/2016 None diabetes mellitus Nutrition regular diet 09/04/2016 None diabetes mellitus Exercise minimal exercise 09/04/2016 None edema Quality acute None edema Quality painful 05/30/2016 None edema Onset and Resolution ongoing 05/30/2016 None edema Onset of Symptom 2 weeks ago 05/30/2016 None edema Limitation on Activities moderately limits activities 05/30/2016 None edema Exacerbating Factors activity 05/30/2016 None edema Location on the left ankle 05/30/2016 None edema Pertinent Findings limb pain / tenderness 05/30/2016 None diabetes mellitus Onset of Symptom onset as an adult 05/01/2016 None diabetes mellitus Glucose monitoring daily 05/01/2016 None diabetes mellitus Nutrition regular diet 05/01/2016 None diabetes mellitus Exercise minimal exercise 05/01/2016 None diabetes mellitus Severity moderate 05/01/2016 None diabetes mellitus Test results Pt checking blood glucose at home, see scanned readings 2015 None mole check Location-Major on the chest 02/29/2016 None mole check Location-Major on the head 02/29/2016 None mole check Location-Head/Neck on the right cheek 02/29/2016 None mole check Location-Trunk on the upper chest 02/29/2016 None diabetes mellitus Onset of Symptom onset as an adult 02/03/2016 bs this am was 124 diabetes mellitus Quality non-insulin dependent 02/03/2016 None diabetes mellitus Quality chronic 02/03/2016 None diabetes mellitus Severity mild 02/03/2016 None diabetes mellitus Nutrition ADA diet 02/03/2016 None diabetes mellitus Pertinent Findings Denies dizziness 02/03/2016 None diabetes mellitus Pertinent Findings dyspnea 02/03/2016 None hypertension Quality chronic 02/03/2016 None hypertension Quality stable 02/03/2016 None hypertension Onset and Resolution ongoing 02/03/2016 None hypertension Onset of Symptom during adulthood 02/03/2016 None hypertension Blood Pressure Values patient checking blood pressure at home - did not bring in readings 02/03/2016 None hypertension Significant Family History heart disease 02/03/2016 None hypertension Significant Family History hypertension 02/03/2016 None hypertension Significant Medical Conditions cardiac disease 02/03/2016 None hypertension Significant Medical Conditions diabetes 02/03/2016 None hypertension Pertinent Findings Denies dizziness 02/03/2016 None hypertension Pertinent Findings dyspnea 02/03/2016 -thinks it relates to her stomach hypertension Pertinent Findings Denies edema 02/03/2016 None hypothyroid Quality stable 02/03/2016 None hypothyroid Onset and Resolution ongoing 02/03/2016 None hypothyroid Alleviating Factors medication 02/03/2016 None hyperlipidemia Onset and Resolution gradual in onset 02/03/2016 None hyperlipidemia Onset and Resolution ongoing 02/03/2016 None hyperlipidemia Significant Medical Conditions diabetes 02/03/2016 None hyperlipidemia Significant Medical Conditions hypothyroidism 02/03/2016 None hyperlipidemia Alleviating Factors medication 02/03/2016 None diarrhea Quality chronic 02/03/2016 None diarrhea Quality intermittent 02/03/2016 None diarrhea Quality loose 02/03/2016 None diarrhea Onset and Resolution ongoing 02/03/2016 None gastroesophageal reflux Quality heartburn 02/03/2016 None gastroesophageal reflux Onset and Resolution ongoing 02/03/2016 None gastroesophageal reflux Triggers meals 02/03/2016 None gastroesophageal reflux Alleviating Factors proton pump inhibitor 02/03/2016 None gastroesophageal reflux Alleviating Factors medication 02/03/2016 None gastroesophageal reflux Exacerbating Factors drinking 02/03/2016 None gastroesophageal reflux Exacerbating Factors eating 02/03/2016 None sinus congestion Quality fullness 02/03/2016 None sinus congestion Quality pressure 02/03/2016 None sinus congestion Onset and Resolution sudden in onset 02/03/2016 None sinus congestion Onset of Symptom 2 weeks ago 02/03/2016 None diabetes mellitus Onset of Symptom onset as an adult 12/21/2015 bs this am was 124 diabetes mellitus Quality non-insulin dependent 12/21/2015 None diabetes mellitus Quality chronic 12/21/2015 None diabetes mellitus Severity mild 12/21/2015 None diabetes mellitus Nutrition ADA diet 12/21/2015 None diabetes mellitus Pertinent Findings Denies dizziness 12/21/2015 None hypertension Quality chronic 12/21/2015 None hypertension Quality stable 12/21/2015 None hypertension Onset and Resolution ongoing 12/21/2015 None hypertension Onset of Symptom during adulthood 12/21/2015 None hypertension Blood Pressure Values patient checking blood pressure at home - did not bring in readings 12/21/2015 None hypertension Significant Family History heart disease 12/21/2015 None hypertension Significant Family History hypertension 12/21/2015 None hypertension Significant Medical Conditions cardiac disease 12/21/2015 None hypertension Significant Medical Conditions diabetes 12/21/2015 None hypertension Pertinent Findings Denies dizziness 12/21/2015 None hypertension Pertinent Findings dyspnea 12/21/2015 -thinks it relates to her stomach hypertension Pertinent Findings Denies edema 12/21/2015 None hypothyroid Quality stable 12/21/2015 None hypothyroid Onset and Resolution ongoing 12/21/2015 None hypothyroid Alleviating Factors medication 12/21/2015 None hyperlipidemia Onset and Resolution gradual in onset 12/21/2015 None hyperlipidemia Onset and Resolution ongoing 12/21/2015 None hyperlipidemia Significant Medical Conditions diabetes 12/21/2015 None hyperlipidemia Significant Medical Conditions hypothyroidism 12/21/2015 None hyperlipidemia Alleviating Factors medication 12/21/2015 None diarrhea Onset and Resolution ongoing 12/21/2015 None diarrhea Quality chronic 12/21/2015 None diarrhea Quality loose 12/21/2015 None diarrhea Quality intermittent 12/21/2015 None gastroesophageal reflux Quality heartburn 12/21/2015 None gastroesophageal reflux Onset and Resolution ongoing 12/21/2015 None gastroesophageal reflux Triggers meals 12/21/2015 None gastroesophageal reflux Alleviating Factors medication 12/21/2015 None gastroesophageal reflux Alleviating Factors proton pump inhibitor 12/21/2015 None gastroesophageal reflux Exacerbating Factors eating 12/21/2015 None gastroesophageal reflux Exacerbating Factors drinking 12/21/2015 None diabetes mellitus Test results Pt checking blood glucose readings, did not bring results to clinic 12/21/2015 None diabetes mellitus Glucose monitoring daily 12/21/2015 None diabetes mellitus Pertinent Findings dyspnea 12/21/2015 None shortness of breath Exacerbating Factors exertion 10/25/2015 None shortness of breath Pertinent Findings Denies lightheadedness 10/25/2015 None shortness of breath Quality intermittent 10/25/2015 None shortness of breath Quality improving 10/25/2015 None shortness of breath Onset and Resolution ongoing 10/25/2015 None shortness of breath Onset of Symptom _ weeks ago 10/25/2015 None shortness of breath Frequency of Episodes decreasing 10/25/2015 None shortness of breath Quality air hunger 10/19/2015 None shortness of breath Quality chest tightness 10/19/2015 None shortness of breath Onset and Resolution sudden in onset 10/19/2015 None shortness of breath Onset of Symptom 1 months ago 10/19/2015 None shortness of breath Limitation on Activities is incapacitating 10/19/2015 None shortness of breath Exacerbating Factors exertion 10/19/2015 None shortness of breath Pertinent Findings chest discomfort 10/19/2015 None shortness of breath Pertinent Findings lightheadedness 10/19/2015 None diabetes mellitus Onset of Symptom onset as an adult 06/22/2015 bs this am was 102 diabetes mellitus Quality non-insulin dependent 06/22/2015 None diabetes mellitus Quality chronic 06/22/2015 None diabetes mellitus Severity mild 06/22/2015 None diabetes mellitus Nutrition ADA diet 06/22/2015 None diabetes mellitus Pertinent Findings Denies dizziness 06/22/2015 None hypertension Quality chronic 06/22/2015 None hypertension Quality stable 06/22/2015 None hypertension Onset and Resolution ongoing 06/22/2015 None hypertension Onset of Symptom during adulthood 06/22/2015 None hypertension Significant Family History heart disease 06/22/2015 None hypertension Significant Family History hypertension 06/22/2015 None hypertension Significant Medical Conditions cardiac disease 06/22/2015 None hypertension Significant Medical Conditions diabetes 06/22/2015 None hypertension Pertinent Findings Denies dizziness 06/22/2015 None hypertension Pertinent Findings Denies edema 06/22/2015 None diabetes mellitus Glucose monitoring fasting 06/22/2015 None hypertension Pertinent Findings Denies dyspnea 06/22/2015 None hypertension Blood Pressure Values patient checking blood pressure at home - did not bring in readings 06/22/2015 None hypothyroid Quality stable 06/22/2015 None hypothyroid Onset and Resolution ongoing 06/22/2015 None hypothyroid Alleviating Factors medication 06/22/2015 None hyperlipidemia Onset and Resolution ongoing 06/22/2015 None hyperlipidemia Onset and Resolution gradual in onset 06/22/2015 None hyperlipidemia Alleviating Factors medication 06/22/2015 None hyperlipidemia Significant Medical Conditions diabetes 06/22/2015 None hyperlipidemia Significant Medical Conditions hypothyroidism 06/22/2015 None diabetes mellitus Onset of Symptom onset as an adult 12/22/2014 bs this am was 115 - diabetes mellitus Quality non-insulin dependent 12/22/2014 None diabetes mellitus Quality chronic 12/22/2014 None diabetes mellitus Severity mild 12/22/2014 None diabetes mellitus Nutrition ADA diet 12/22/2014 None diabetes mellitus Pertinent Findings Denies dizziness 12/22/2014 None hypertension Quality chronic 12/22/2014 None hypertension Quality stable 12/22/2014 None hypertension Onset and Resolution ongoing 12/22/2014 None hypertension Onset of Symptom during adulthood 12/22/2014 None hypertension Blood Pressure Values pt checking blood pressure - see scanned document 12/22/2014 pt's bps at home are normal hypertension Significant Family History heart disease 12/22/2014 None hypertension Significant Family History hypertension 12/22/2014 None hypertension Significant Medical Conditions cardiac disease 12/22/2014 None hypertension Significant Medical Conditions diabetes 12/22/2014 None hypertension Pertinent Findings Denies dizziness 12/22/2014 None hypertension Pertinent Findings Denies edema 12/22/2014 None diabetes mellitus Glucose monitoring daily 12/22/2014 None diabetes mellitus Onset of Symptom onset as an adult 08/17/2014 None diabetes mellitus Quality non-insulin dependent 08/17/2014 None diabetes mellitus Quality chronic 08/17/2014 None diabetes mellitus Severity mild 08/17/2014 None diabetes mellitus Nutrition ADA diet 08/17/2014 None hypertension Quality chronic 08/17/2014 None hypertension Quality stable 08/17/2014 None hypertension Onset and Resolution ongoing 08/17/2014 None hypertension Onset of Symptom during adulthood 08/17/2014 None hypertension Blood Pressure Values pt checking blood pressure - see scanned document 08/17/2014 pt's bps at home are normal hypertension Significant Family History heart disease 08/17/2014 None hypertension Significant Family History hypertension 08/17/2014 None hypertension Significant Medical Conditions cardiac disease 08/17/2014 None hypertension Significant Medical Conditions diabetes 08/17/2014 None hypertension Pertinent Findings Denies dizziness 08/17/2014 None hypertension Pertinent Findings Denies edema 08/17/2014 None diabetes mellitus Pertinent Findings Denies dizziness 08/17/2014 None shortness of breath Onset of Symptom 1 months ago 08/17/2014 None shortness of breath Pertinent Findings Denies chills 08/17/2014 None shortness of breath Pertinent Findings cough 08/17/2014 None shortness of breath Pertinent Findings back pain 08/17/2014 None shortness of breath Pertinent Findings Denies fever 08/17/2014 None diabetes mellitus Onset of Symptom onset as an adult 04/13/2014 None diabetes mellitus Quality non-insulin dependent 04/13/2014 None diabetes mellitus Quality chronic 04/13/2014 None diabetes mellitus Severity mild 04/13/2014 None diabetes mellitus Nutrition ADA diet 04/13/2014 None hypertension Quality chronic 04/13/2014 None hypertension Quality stable 04/13/2014 None hypertension Onset and Resolution ongoing 04/13/2014 None hypertension Onset of Symptom during adulthood 04/13/2014 None hypertension Blood Pressure Values pt checking blood pressure - see scanned document 04/13/2014 pt's bps at home are normal hypertension Significant Family History heart disease 04/13/2014 None hypertension Significant Family History hypertension 04/13/2014 None hypertension Significant Medical Conditions cardiac disease 04/13/2014 None hypertension Significant Medical Conditions diabetes 04/13/2014 None hypertension Pertinent Findings dizziness 04/13/2014 None hypertension Pertinent Findings Denies dyspnea 04/13/2014 None hypertension Pertinent Findings Denies edema 04/13/2014 None diabetes mellitus Test results Pt checking blood glucose at home, see scanned readings 2013 None hypertension Pertinent Findings dizziness 12/11/2013 None hypertension Pertinent Findings Denies dyspnea 12/11/2013 None hypertension Pertinent Findings Denies edema 12/11/2013 None hypertension Blood Pressure Values pt checking blood pressure - see scanned document 12/11/2013 pt's bps at home are normal diabetes mellitus Onset of Symptom onset as an adult 12/11/2013 None diabetes mellitus Quality non-insulin dependent 12/11/2013 None diabetes mellitus Severity mild 12/11/2013 None diabetes mellitus Quality chronic 12/11/2013 None diabetes mellitus Blood glucose levels between 60 and 120 12/11/2013 None diabetes mellitus Glucose monitoring daily 12/11/2013 None diabetes mellitus Nutrition ADA diet 12/11/2013 None diabetes mellitus Exercise no exercise 12/11/2013 None hypertension Onset and Resolution ongoing 12/11/2013 None hypertension Onset of Symptom during adulthood 12/11/2013 None hypertension Quality chronic 12/11/2013 None hypertension Quality stable 12/11/2013 None hypertension Significant Family History heart disease 12/11/2013 None hypertension Significant Family History hypertension 12/11/2013 None hypertension Significant Medical Conditions cardiac disease 12/11/2013 None hypertension Significant Medical Conditions diabetes 12/11/2013 None diabetes mellitus Test results Pt checking blood glucose at home, see scanned readings 2013 None diabetes mellitus Pertinent Findings nausea 11/10/2013 None hypertension Pertinent Findings Denies dizziness 11/10/2013 None hypertension Pertinent Findings Denies dyspnea 11/10/2013 None hypertension Pertinent Findings Denies edema 11/10/2013 None hypertension Pertinent Findings Denies lethargy 11/10/2013 None hypertension Pertinent Findings Denies nausea 11/10/2013 None hypertension Pertinent Findings Denies palpitations 11/10/2013 None hypertension Quality chronic 11/10/2013 None hypertension Onset and Resolution ongoing 11/10/2013 None hypertension Onset of Symptom during adulthood 11/10/2013 None hypertension Severity mild 11/10/2013 None diabetes mellitus Onset of Symptom onset as an adult 11/10/2013 None diabetes mellitus Quality non-insulin dependent 11/10/2013 None diabetes mellitus Quality chronic 11/10/2013 None diabetes mellitus Quality NIDDM 11/10/2013 None diabetes mellitus Quality worsening 11/10/2013 None diabetes mellitus Nutrition regular diet 11/10/2013 None diabetes mellitus Pertinent Findings Denies dizziness 11/10/2013 None diabetes mellitus Pertinent Findings Denies dyspnea 11/10/2013 None diabetes mellitus Pertinent Findings Denies numbness 11/10/2013 None diabetes mellitus Pertinent Findings Denies tingling 11/10/2013 None sore throat Quality acute 08/11/2013 None sore throat Quality aching 08/11/2013 None sore throat Onset and Resolution sudden in onset 08/11/2013 None sore throat Onset of Symptom 2 days ago 08/11/2013 None sore throat Pertinent Findings fever 08/11/2013 None sore throat Pertinent Findings Denies cough 08/11/2013 None diabetes mellitus Quality non-insulin dependent 08/11/2013 None diabetes mellitus Quality chronic 08/11/2013 None diabetes mellitus Test results Pt checking blood glucose at home, see scanned readings 2013 None hypertension Quality chronic 08/11/2013 None hypertension Onset and Resolution ongoing 08/11/2013 None hypertension Blood Pressure Values pt checking blood pressure - see scanned document 08/11/2013 None sore throat Onset and Resolution ongoing 08/11/2013 None sore throat Location on both sides 08/11/2013 None sore throat Triggers no known associated factors 08/11/2013 None diabetes mellitus Severity mild 08/11/2013 None diabetes mellitus Onset of Symptom onset as an adult 08/11/2013 None diabetes mellitus Pertinent Findings Denies lethargy 08/11/2013 None diabetes mellitus Exercise no exercise 08/11/2013 None diabetes mellitus Quality non-insulin dependent 05/12/2013 None diabetes mellitus Quality NIDDM 05/12/2013 None diabetes mellitus Quality chronic 05/12/2013 None diabetes mellitus Quality worsening 05/12/2013 None diabetes mellitus Test results Pt checking blood glucose readings, did not bring results to clinic 05/12/2013 None diabetes mellitus Glucose monitoring daily 05/12/2013 None diabetes mellitus Pertinent Findings Denies dizziness 05/12/2013 None diabetes mellitus Pertinent Findings Denies dyspnea 05/12/2013 None diabetes mellitus Pertinent Findings Denies tingling 05/12/2013 None diabetes mellitus Pertinent Findings Denies numbness 05/12/2013 None diabetes mellitus Onset of Symptom onset as an adult 05/12/2013 None diabetes mellitus Blood glucose levels greater than 120 05/12/2013 None diabetes mellitus Nutrition regular diet 05/12/2013 None diabetes mellitus Exercise no exercise 05/12/2013 None diabetes mellitus Quality non-insulin dependent 01/06/2013 None diabetes mellitus Quality NIDDM 01/06/2013 None diabetes mellitus Test results Pt checking blood glucose at home, see scanned readings 2012 None diabetes mellitus Nutrition ADA diet 01/06/2013 None hypertension Quality chronic 01/06/2013 None hypertension Onset and Resolution ongoing 01/06/2013 None hypertension Blood Pressure Values pt checking blood pressure - see scanned document 01/06/2013 None hypertension Pertinent Findings Denies tachycardia 01/06/2013 None hypertension Pertinent Findings Denies palpitations 01/06/2013 None hypertension Pertinent Findings Denies orthostatic hypotension 01/06/2013 None hypertension Pertinent Findings Denies dizziness 01/06/2013 None hypertension Pertinent Findings Denies dyspnea 01/06/2013 None diabetes mellitus Onset of Symptom onset as an adult 01/06/2013 None diabetes mellitus Severity mild 01/06/2013 None diabetes mellitus Pertinent Findings Denies dizziness 01/06/2013 None diabetes mellitus Pertinent Findings Denies lethargy 01/06/2013 None diabetes mellitus Quality non-insulin dependent 10/07/2012 None diabetes mellitus Test results Pt checking blood glucose readings, did not bring results to clinic 10/07/2012 None diabetes mellitus Onset of Symptom onset as an adult 10/07/2012 None diabetes mellitus Severity mild 10/07/2012 None diabetes mellitus Pertinent Findings Denies behavioral changes 10/07/2012 None diabetes mellitus Pertinent Findings Denies dizziness 10/07/2012 None diabetes mellitus Pertinent Findings Denies lethargy 10/07/2012 None diabetes mellitus Onset of Symptom onset as an adult 09/11/2012 None diabetes mellitus Severity mild 09/11/2012 None diabetes mellitus Pertinent Findings Denies behavioral changes 09/11/2012 None diabetes mellitus Pertinent Findings Denies dizziness 09/11/2012 None diabetes mellitus Pertinent Findings Denies lethargy 09/11/2012 None diabetes mellitus Quality non-insulin dependent 09/11/2012 None diabetes mellitus Test results Pt checking blood glucose readings, did not bring results to clinic 09/11/2012 None diabetes mellitus Blood glucose levels between 60 and 120 09/11/2012 None diabetes mellitus Alleviating Factors medication 09/11/2012 None diabetes mellitus Alleviating Factors diet 09/11/2012 None diabetes mellitus Exacerbating Factors diet 09/11/2012 None diabetes mellitus Exercise minimal exercise 09/11/2012 None fatigue Quality constant 07/15/2012 None fatigue Pertinent Findings weakness 07/15/2012 None hypertension Quality chronic 07/15/2012 None hypertension Onset and Resolution ongoing 07/15/2012 None hypertension Onset of Symptom during adulthood 07/15/2012 None hypertension Severity mild 07/15/2012 None hypertension Significant Family History cerebrovascular accident 07/15/2012 None hypertension Significant Family History hypertension 07/15/2012 None hypertension Significant Medical Conditions cardiac disease 07/15/2012 None hypertension Triggers no known associated factors 07/15/2012 None hypertension Alleviating Factors medication 07/15/2012 None hypertension Exacerbating Factors stress 07/15/2012 None hypertension Exacerbating Factors change in dietary habits 07/15/2012 None hypertension Pertinent Findings Denies anxiety 07/15/2012 None hypertension Pertinent Findings decreased energy 07/15/2012 None hypertension Pertinent Findings Denies dizziness 07/15/2012 None hypertension Pertinent Findings dyspnea 07/15/2012 None hypertension Pertinent Findings Denies edema 07/15/2012 None hypertension Blood Pressure Values pt checking blood pressure - see scanned document 07/15/2012 114/70 today at home fatigue Significant Medical Conditions cardiac disease 07/15/2012 None fatigue Significant Medical Conditions anemia 07/15/2012 None blood pressure followup Quality stable 05/02/2012 None blood pressure followup Onset and Resolution ongoing 05/02/2012 None diabetes mellitus Quality non-insulin dependent 05/02/2012 None blood pressure followup Onset of Symptom during adulthood 05/02/2012 None blood pressure followup Severity mild 05/02/2012 None blood pressure followup Blood Pressure Values pt checking blood pressure - see scanned document 05/02 None blood pressure followup Pertinent Findings Denies anxiety 05/02/2012 None blood pressure followup Pertinent Findings Denies decreased energy 05/02/2012 None blood pressure followup Pertinent Findings Denies dizziness 05/02/2012 None blood pressure followup Pertinent Findings Denies dyspnea 05/02/2012 None blood pressure followup Pertinent Findings Denies edema 05/02/2012 None blood pressure followup Exacerbating Factors stress 05/02/2012 None blood pressure followup Alleviating Factors medication 05/02/2012 None blood pressure followup Alleviating Factors diet changes 05/02/2012 None blood pressure followup Significant Medical Conditions cardiac disease 05/02/2012 None diabetes mellitus Onset of Symptom onset as an adult 05/02/2012 None diabetes mellitus Severity mild 05/02/2012 None diabetes mellitus Test results Pt checking blood glucose at home, see scanned readings 2011 None diabetes mellitus Blood glucose levels between 60 and 120 05/02/2012 None diabetes mellitus Glucose monitoring daily 05/02/2012 None diabetes mellitus Pertinent Findings Denies dizziness 05/02/2012 None diabetes mellitus Pertinent Findings Denies lethargy 05/02/2012 None diabetes mellitus Exercise minimal exercise 05/02/2012 None hypertension Onset and Resolution ongoing 03/28/2012 None diabetes mellitus Quality non-insulin dependent 03/28/2012 None hypothyroid Quality stable 03/28/2012 None hyperlipidemia Onset and Resolution ongoing 03/28/2012 None hypertension Quality chronic 03/28/2012 None hypertension Blood Pressure Values not checking blood pressure at home 03/28/2012 None hypertension Severity mild 03/28/2012 None hypertension Triggers stress 03/28/2012 None hypertension Alleviating Factors medication 03/28/2012 None hypertension Pertinent Findings Denies anxiety 03/28/2012 None hypertension Pertinent Findings Denies confusion 03/28/2012 None diabetes mellitus Onset of Symptom onset as an adult 03/28/2012 None diabetes mellitus Severity mild 03/28/2012 None diabetes mellitus Pertinent Findings Denies behavioral changes 03/28/2012 None diabetes mellitus Pertinent Findings Denies dizziness 03/28/2012 None diabetes mellitus Pertinent Findings Denies lethargy 03/28/2012 None diabetes mellitus Severity moderate 03/28/2012 None diabetes mellitus Alleviating Factors medication 03/28/2012 None diabetes mellitus Alleviating Factors diet 03/28/2012 None hypertension Quality stable 03/28/2012 None diabetes mellitus Exacerbating Factors diet 03/28/2012 None diabetes mellitus Pertinent Findings Denies increased hunger 03/28/2012 None hyperlipidemia Onset of Symptom during adulthood 03/28/2012 None hyperlipidemia Severity moderate 03/28/2012 None hyperlipidemia Exacerbating Factors diet 03/28/2012 None hyperlipidemia Alleviating Factors medication 03/28/2012 None hypertension Quality chronic 11/27/2011 None hypertension Onset and Resolution ongoing 11/27/2011 None diabetes mellitus Onset of Symptom onset as an adult 11/27/2011 None diabetes mellitus Severity mild 11/27/2011 None diabetes mellitus Pertinent Findings Denies behavioral changes 11/27/2011 None diabetes mellitus Pertinent Findings Denies dizziness 11/27/2011 None diabetes mellitus Pertinent Findings Denies lethargy 11/27/2011 None diabetes mellitus Quality non-insulin dependent 11/27/2011 None diabetes mellitus Severity moderate 11/27/2011 None diabetes mellitus Alleviating Factors medication 11/27/2011 None diabetes mellitus Alleviating Factors diet 11/27/2011 None diabetes mellitus Exacerbating Factors diet 11/27/2011 None diabetes mellitus Pertinent Findings Denies increased hunger 11/27/2011 None hypertension Blood Pressure Values not checking blood pressure at home 11/27/2011 None hypertension Severity mild 11/27/2011 None hypertension Triggers stress 11/27/2011 None hypertension Alleviating Factors medication 11/27/2011 None hypertension Pertinent Findings Denies anxiety 11/27/2011 None hypertension Pertinent Findings Denies confusion 11/27/2011 None diabetes mellitus Glucose monitoring daily 11/27/2011 None diabetes mellitus Test results Pt checking blood glucose readings, did not bring results to clinic 11/27/2011 None anemia Quality improving 10/25/2011 None anemia Onset and Resolution gradual in onset 10/25/2011 None anemia Intervention Required transfusion 10/25/2011 None anemia Significant Medical Conditions gastrointestinal bleeding 10/25/2011 None anemia Significant Medications antiplatelet agent 10/25/2011 None anemia Pertinent Findings bruising 10/25/2011 None anemia Pertinent Findings decreased energy 10/25/2011 None anemia Pertinent Findings Denies decreased exercise tolerance 10/25/2011 None anemia Pertinent Findings Denies melena 10/25/2011 None anemia Pertinent Findings Denies weakness 10/25/2011 None anemia Quality acute 10/11/2011 None anemia Onset and Resolution ongoing 10/11/2011 None fatigue Onset and Resolution sudden in onset 10/11/2011 None fatigue Onset and Resolution ongoing 10/11/2011 None fatigue Quality acute 10/11/2011 None fatigue Quality worsening 10/11/2011 None fatigue Limitation on Activities moderately limits activities 10/11/2011 None fatigue Significant Medical Conditions cardiac disease 10/11/2011 None fatigue Triggers stress 10/11/2011 None fatigue Alleviating Factors rest 10/11/2011 None fatigue Exacerbating Factors medication 10/11/2011 None fatigue Pertinent Findings Denies dizziness 10/11/2011 None fatigue Pertinent Findings pallor 10/11/2011 None anemia Quality improving 10/11/2011 None anemia Significant Medical Conditions gastrointestinal bleeding 10/11/2011 None anemia Significant Medications antiplatelet agent 10/11/2011 None anemia Pertinent Findings Denies bleeding 10/11/2011 None anemia Pertinent Findings decreased appetite 10/11/2011 None anemia Pertinent Findings decreased energy 10/11/2011 None anemia Pertinent Findings Denies tachycardia 10/11/2011 None anemia Pertinent Findings weakness 10/11/2011 None fatigue Quality acute 10/04/2011 None fatigue Quality worsening 10/04/2011 None fatigue Pertinent Findings Denies dizziness 10/04/2011 None fatigue Pertinent Findings weakness 10/04/2011 states stools are black fatigue Pertinent Findings pallor 10/04/2011 None fatigue Onset and Resolution ongoing 10/04/2011 None fatigue Limitation on Activities moderately limits activities 10/04/2011 None fatigue Significant Medical Conditions cardiac disease 10/04/2011 None fatigue Triggers stress 10/04/2011 None fatigue Alleviating Factors rest 10/04/2011 None fatigue Exacerbating Factors medication 10/04/2011 None chest pain/pressure Onset and Resolution resolved 09/25/2011 states feeling well since stent diabetes mellitus Onset of Symptom onset as an adult 09/25/2011 None diabetes mellitus Severity mild 09/25/2011 None diabetes mellitus Test results Pt checking blood glucose readings, did not bring results to clinic 09/25/2011 None diabetes mellitus Blood glucose levels between 60 and 120 09/25/2011 None diabetes mellitus Blood glucose levels greater than 120 09/25/2011 None diabetes mellitus Glucose monitoring daily 09/25/2011 None diabetes mellitus Quality non-insulin dependent 09/25/2011 None diabetes mellitus Pertinent Findings Denies behavioral changes 09/25/2011 None diabetes mellitus Pertinent Findings Denies dizziness 09/25/2011 None diabetes mellitus Pertinent Findings Denies lethargy 09/25/2011 None diabetes mellitus Exercise no exercise 09/25/2011 None neck pain Quality sharp 07/31/2011 None neck pain Quality discomfort 07/31/2011 None neck pain Onset and Resolution worse at night 07/31/2011 None neck pain Limitation on Activities moderately limits activities 07/31/2011 None neck pain Alleviating Factors medication 07/31/2011 pt has been using voltaren gel with some relief paresthesia Location on the left hand 07/31/2011 None paresthesia Quality numbness 07/31/2011 None paresthesia Quality throbbing 07/31/2011 None neck pain Onset of Symptom 2 months ago 05/22/2011 None neck pain Quality aching 05/22/2011 radiates to left side of head/face & causes a headache neck pain Quality throbbing 05/22/2011 None neck pain Alleviating Factors medication 05/22/2011 pt has taken aleve and states that it has helped a little neck pain Initial treatment heat 05/22/2011 pt has used a heating pad with no relief neck pain Initial treatment medication 05/22/2011 pt has used topical creams with little relief sinus congestion Quality pressure 05/22/2011 None sinus congestion Onset and Resolution ongoing 05/22/2011 None sinus congestion Onset of Symptom 1-2 weeks ago 05/22/2011 None sinus congestion Severity moderate 05/22/2011 None sinus congestion Frequency of Episodes increasing 05/22/2011 None diabetes mellitus Glucose monitoring daily 05/05/2011 None diabetes mellitus Quality non-insulin dependent 05/05/2011 None diabetes mellitus Onset of Symptom onset as an adult 05/05/2011 None diabetes mellitus Severity moderate 05/05/2011 None diabetes mellitus Blood glucose levels between 60 and 120 05/05/2011 None diabetes mellitus Blood glucose levels greater than 120 05/05/2011 a few readings between 120 to 150 cholesterol followup Quality chronic 05/05/2011 None cholesterol followup Onset of Symptom during adulthood 05/05/2011 stopped her lovastatin last week.. Pt states that she had been having a lot of muscle cramps - were really bad in her neck.. Since she stopped the lovastatin, she has not had the cramps. diabetes mellitus Exercise minimal exercise 05/05/2011 None diabetes mellitus Pertinent Findings Denies behavioral changes 05/05/2011 None diabetes mellitus Pertinent Findings Denies dizziness 05/05/2011 None diabetes mellitus Pertinent Findings Denies increased hunger 05/05/2011 None diabetes mellitus Pertinent Findings Denies lethargy 05/05/2011 None diabetes mellitus Exacerbating Factors diet 05/05/2011 None diabetes mellitus Alleviating Factors diet 05/05/2011 None diabetes mellitus Alleviating Factors medication 05/05/2011 None cholesterol followup Significant Medical Conditions diabetes 05/05/2011 None cholesterol followup Pertinent Findings Denies cold intolerance 05/05/2011 None cholesterol followup Pertinent Findings Denies nausea 05/05/2011 None cholesterol followup Pertinent Findings Denies vomiting 05/05/2011 None Advance Directives Advance Directives Present Encounters Encounter Performer Location Codes Date ([id number]) [id number] EST. PATIENT, LEVEL III Diagnosis: Essential (primary) hypertension[ICD10: I10] Clarice Elaine MD, [facility] CPT-4: 50856 05/29/2017 ([id number]) [id number] EST. PATIENT, LEVEL III Diagnosis: Acute bronchitis due to other specified organisms[ICD10: J20.8] Diagnosis: Cough[ICD10: R05] Diagnosis: Other chest pain[ICD10: R07.89] Clarice Elaine MD, [facility] CPT- 4: [id number] 05/14/2017 ([id number]) [id number] EST. PATIENT, LEVEL IV Diagnosis: Type 2 diabetes mellitus with hyperglycemia[ICD10: E11.65] Diagnosis: Essential (primary) hypertension[ICD10: I10] Diagnosis: Mild intermittent asthma with (acute) exacerbation[ICD10: J45.21] Clarice Elaine MD, [facility] CPT-4: 30143 03/06/2017 ([id number]) [id number] EST. 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 PATIENT, LEVEL III Diagnosis: Mild intermittent asthma with (acute) exacerbation[ICD10: J45.21] Diagnosis: Gastro-esophageal reflux disease without esophagitis[ICD10: K21.9] Jayne Elaine MD [facility] CPT-4: 22949 10/12/2016 ([id number]) 25742 EST. PATIENT, LEVEL IV Diagnosis: Type 2 diabetes mellitus with hyperglycemia[ICD10: E11.65] Diagnosis: Essential (primary) hypertension[ICD10: I10] Diagnosis: Mild intermittent asthma with (acute) exacerbation[ICD10: J45.21] Clarice Elaine MD, [facility] CPT-4: 45626 09/04/2016 65517 EST. PATIENT, LEVEL III Diagnosis: Pain in left ankle and joints of left foot[ICD10: M25.572] Diagnosis: Localized edema[ICD10: R60.0] Jayne Elaine MD [facility] CPT-4 : 69827 05/30/2016 ([id number]) 90622 EST. PATIENT, LEVEL III Diagnosis: Type 2 diabetes mellitus with hyperglycemia[ICD10: E11.65] Clarice Elaine MD [facility] CPT-4: 68590 05/01/2016 ([id number]) 38954 EST. PATIENT, LEVEL IV Diagnosis: Type 2 diabetes mellitus without complications[ICD10: E11.9] Diagnosis: Moderate persistent asthma, uncomplicated[ICD10: J45.40] Diagnosis: Paroxysmal atrial fibrillation[ICD10: I48.0] Clarice Elaine MD [facility] CPT-4: 47276 02/29/2016 ([id number]) 18867 EST. PATIENT, LEVEL IV Diagnosis: Paroxysmal atrial fibrillation[ICD10: I48.0] Diagnosis: Hypothyroidism, unspecified[ICD10: E03.9] Diagnosis: Type 2 diabetes mellitus without complications[ICD10: E11.9] Diagnosis: Essential (primary) hypertension[ICD10: I10] Diagnosis: Acute maxillary sinusitis, unspecified[ICD10: J01.00] Diagnosis: Moderate persistent asthma, uncomplicated[ICD10: J45.40] Clarice Elaine MD [facility] CPT-4: 03274 02/03/2016 ([id number]) 64938 EST. PATIENT, LEVEL IV Diagnosis: Type 2 diabetes mellitus without complications[ICD10: E11.9] Diagnosis: Hypothyroidism, unspecified[ICD10: E03.9] Diagnosis: Moderate persistent asthma, uncomplicated[ICD10: J45.40] Diagnosis: Essential (primary) hypertension[ICD10: I10] Clarice Elaine MD, [facility] CPT-4: 64214 12/21/2015 ([id number]) 05925 EST. 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 PATIENT, LEVEL IV Diagnosis: Type 2 diabetes mellitus without complications[ICD10: E11.9] Diagnosis: Essential (primary) hypertension[ICD10: I10] Diagnosis: Hypothyroidism, unspecified[ICD10: E03.9] Clarice Elaine MD, [facility] CPT-4: 47670 06/22/2015 ([id number]) 27417 EST. PATIENT, LEVEL IV Diagnosis: ESSENTIAL HYPERTENSION[ICD9: 401.9] Diagnosis: DIABETES TYPE II[ICD9: 250.00] [facility] CPT- 4: 33716 12/22/2014 ([id number]) 67242 EST. PATIENT, LEVEL IV Diagnosis: ACUTE BRONCHITIS[ICD9: 466.0] Diagnosis: Acute asthma exacerbation[ICD9: 493.92] Diagnosis: ESSENTIAL HYPERTENSION[ICD9: 401.9] Diagnosis: DIABETES TYPE II[ICD9: 250.00] [facility] CPT- 4: 90174 08/17/2014 ([id number]) 04295 EST. PATIENT, LEVEL IV Diagnosis: DIABETES TYPE II[ICD9: 250.00] Diagnosis: ESSENTIAL HYPERTENSION[ICD9: 401.9] Diagnosis: Acute asthma exacerbation[ICD9: 493.92] Clarice Elaine MD [facility] CPT-4: 11631 04/13/2014 ([id number]) 45100 EST. PATIENT, LEVEL IV Diagnosis: DIABETES TYPE II[ICD9: 250.00] Diagnosis: ESSENTIAL HYPERTENSION[ICD9: 401.9] Diagnosis: HYPOTHYROIDISM[ICD9: 244.9] Clarice Elaine MD [facility] CPT- 4: 12564 12/11/2013 ([id number]) 92028 EST. PATIENT, LEVEL IV Diagnosis: DM W/O COMPLICATION TYPE II, UNCONTROLLED[ICD9: 250.02] Diagnosis: ESSENTIAL HYPERTENSION[ICD9: 401.9] Clarice Elaine MD [facility] CPT-4: 51556 11/10/2013 ([id number]) 35099 EST. PATIENT, LEVEL IV Diagnosis: DM W/O COMPLICATION TYPE II, UNCONTROLLED[SNOMED: 28180975] Diagnosis: ESSENTIAL HYPERTENSION[SNOMED: 55164711] Diagnosis: ACUTE BRONCHITIS[ICD9: 466.0] Clarice Elaine MD [facility] CPT- 4: 17794 08/11/2013 ([id number]) 62464 EST. PATIENT, LEVEL IV Diagnosis: DM W/O COMPLICATION TYPE II, UNCONTROLLED[SNOMED: 70297762] Diagnosis: ATRIAL FIBRILLATION[ICD9: 427.31] Diagnosis: ESSENTIAL HYPERTENSION[SNOMED: 52229636] Clarice Elaine MD [facility] CPT-4: 65387 05/12/2013 ([id number]) 11455 EST. PATIENT, LEVEL IV Diagnosis: DM W/O COMPLICATION TYPE II, UNCONTROLLED[SNOMED: 65577329] Diagnosis: ESSENTIAL HYPERTENSION[SNOMED: 39569074] Clarice Elaine MD [facility] CPT-4: 95059 01/06/2013 ([id number]) 58712 EST. PATIENT, LEVEL IV Diagnosis: DIABETES TYPE II[SNOMED: 850372907] Diagnosis: ESSENTIAL HYPERTENSION[SNOMED: 63909794] Diagnosis: Acute asthma exacerbation[ICD9: 493.92] Diagnosis: Fatigue[ICD9: 780.79] Clarice Elaine MD [facility] CPT-4: 36933 10/07/2012 ([id number]) 33492 EST. PATIENT, LEVEL IV Diagnosis: DM W/O COMPLICATION TYPE II, UNCONTROLLED[SNOMED: 29347343] Diagnosis: Lump of breast, right[ICD9: 611.72] Diagnosis: Lump on neck[ICD9: 784.2] Clarice Elaine MD [facility] CPT-4: 92682 09/11/2012 ([id number]) 03260 EST. PATIENT, LEVEL IV Diagnosis: ESSENTIAL HYPERTENSION[SNOMED: 07122916] Diagnosis: Atrial fibrillation[ICD9: 427.31] Diagnosis: Fatigue[ICD9: 780.79] Diagnosis: Encounter for monitoring digoxin therapy[ICD9: V58.83] Clarice Elaine MD [facility] CPT-4: 62054 07/15/2012 ([id number]) 29128 EST. PATIENT, LEVEL IV Diagnosis: DIABETES TYPE II[SNOMED: 604813511] Diagnosis: ESSENTIAL HYPERTENSION[SNOMED: 23031544] Clarice Elaine MD [facility] CPT-4: 48270 05/02/2012 ([id number]) 58952 EST. PATIENT, LEVEL IV Diagnosis: DM W/O COMPLICATION TYPE II, UNCONTROLLED[SNOMED: 44392851] Diagnosis: ESSENTIAL HYPERTENSION[SNOMED: 62077224] Diagnosis: HYPERLIPIDEMIA[ICD9: 272.4] Clarice Elaine MD [facility] CPT- 4: 79607 03/28/2012 ([id number]) 59629 EST. PATIENT, LEVEL IV Diagnosis: DM W/O COMPLICATION TYPE II, UNCONTROLLED[SNOMED: 35567301] Diagnosis: ESSENTIAL HYPERTENSION[SNOMED: 65270914] Clarice Elaine MD [facility] CPT-4: 11789 11/27/2011 ([id number]) 64808 EST. PATIENT, LEVEL III Diagnosis: ESSENTIAL HYPERTENSION[SNOMED: 71418542] Diagnosis: ANEMIA[ICD9: 285.9] Diagnosis: Gastritis[ICD9: 535.50] Clarice Elaine MD [facility] CPT-4: 25385 10/25/2011 ([id number]) 95602 EST. PATIENT, LEVEL III Diagnosis: Anemia associated with acute blood loss[ICD9: 285.1] Diagnosis: Gastritis, acute with hemorrhage[ICD9: 535.01] Clarice Elaine MD, [facility] CPT-4: 11752 10/11/2011 ([id number]) 20431 EST. PATIENT, LEVEL IV Diagnosis: Hematochezia[ICD9: 578.1] Diagnosis: ENCNTR LONG-RX USE NEC[ICD9: V58.69] Diagnosis: Abdominal pain[ICD9: 789.00] Clraice Elaine MD [facility] CPT- 4: 33871 10/04/2011 ([id number]) 37225 EST. PATIENT, LEVEL IV Diagnosis: DIABETES TYPE II[SNOMED: 138588277] Diagnosis: ESSENTIAL HYPERTENSION[SNOMED: 40426187] Diagnosis: Coronary artery disease[ICD9: 414.00] Clarice Elaine MD [facility] CPT-4: 59147 09/25/2011 ([id number]) 82795 EST. PATIENT, LEVEL IV Diagnosis: Muscle spasm[ICD9: 728.85] Diagnosis: Arthralgia[ICD9: 719.40] Diagnosis: ESSENTIAL HYPERTENSION[SNOMED: 36229548] Clarice Elaine MD, [facility] CPT-4: 69150 07/31/2011 64733 EST. PATIENT, LEVEL III Diagnosis: ACUTE SINUSITIS[ICD9: 461.9] Diagnosis: Cervicalgia[ICD9: 723.1] Socorro Elaine MD, [facility] CPT-4: 42155 05/22/2011 09323 EST. PATIENT, LEVEL IV Diagnosis: HYPERLIPIDEMIA[ICD9: 272.4] Diagnosis: HYPOTHYROIDISM[ICD9: 244.9] Diagnosis: DM W/O COMPLICATION TYPE II, UNCONTROLLED[SNOMED: 52289293] Clarice Elaine MD , [facility] CPT-4: 79513 05/05/2011 Plan of Care Planned Activity Notes Codes Status Date Appointment: Clarice Elaine [facility] ([facility] min) Moderate 06/26/2017 Appointment: Clarice Elaine WPtel: [facility] (15 min) Moderate 05/29/2017 Patient Education: Patient Medication Summary Completed 05/29/2017 Patient Education: Hypertension Completed 05/29/2017 Appointment: [facility] [address] [facility] [place] (15 min) Moderate 05/14/2017 Patient Education: Patient Medication Summary Completed 05/14/2017 Appointment: Injection 04/30/2017 Patient Education: Patient Medication Summary Completed 04/30/2017 Appointment: [facility] [address] [facility] [place] (15 min) Moderate 03/06/2017 Patient Education: Patient Medication Summary Completed 03/06/2017 Patient Education: Hypertension Completed 03/06/2017 App[facility]ment: [facility] [address] [facility] [place] (15 min) Moderate 12/05/2016 Appointment: [facility] [address] [facility] [place] (15 min) Moderate 11/01/2016 Patient Education: Patient Medication Summary Completed 11/01/2016 Appointment: [facility] [address] [facility] [place] (15 min) Moderate 10/18/2016 Patient Education: Patient Medication Summary Completed 10/18/2016 App[facility]ment: [facility] [facility] [place] (30 min) Complex 10/12/2016 Patient Education: Patient Medication Summary Completed 10/12/2016 Patient Education: Obesity Completed 10/12/2016 Appointment: [facility] [address] [facility] [place] (15 min) Moderate 09/04/2016 Patient Education: Patient Medication Summary Completed 09/04/2016 Patient Education: Obesity Completed 09/04/2016 Patient Education: Hypertension Completed 09/04/2016 Appointment: Jay[facility] [address] [facility] [place] [facility] - Annual Wellness Visit 06/08/2016 Appointment: (15 min) Moderate 05/30/2016 Patient Education: Patient Medication Summary Completed 05/30/2016 Appointment: Clarice Elaine WPtel: [address] [facility] (15 min) Moderate 05/01/2016 Patient Education: Patient Medication Summary Completed 05/01/2016 App[facility]ment: [facility] [address] [facility] [facility] 02/29/2016 Patient Education: Patient Medication Summary Completed 02/29/2016 Patient Education: Patient Medication Summary Completed 02/03/2016 Patient Education: Obesity Completed 02/03/2016 Patient Education: Hypertension Completed 02/03/2016 Appointment: Clarice Elaine WPtel: [facility] (15 min) Moderate 12/21/2015 Patient Education: Patient Medication Summary Completed 12/21/2015 Patient Education: Obesity Completed 12/21/2015 Patient Education: Hypertension Completed 12/21/2015 Appointment: Injection 11/11/2015 Patient Education: Patient Medication Summary Completed 11/11/2015 Appointment: Clarice Elaine WPtel: [facility] (15 min) Moderate 10/25/2015 Patient Education: Patient Medication Summary Completed 10/25/2015 Appointment: Socorro Salmeron WPtel: [facility]5 [phone] [place] (30 min) Complex 10/19/2015 Patient Education: Patient Medication Summary Completed 10/19/2015 Patient Education: Patient Medication Summary Completed 06/22/2015 Patient Education: Hypertension Completed 06/22/2015 Patient Education: Patient Medication Summary Completed 12/22/2014 Patient Education: Hypertension Completed 12/22/2014 Appointment: Clarice Elaine WPtel: [facility] Follow up 08/17/2014 Patient Education: Patient Medication Summary Completed 08/17/2014 Patient Education: Hypertension Completed 08/17/2014 Appointment: Clarice Elaine WPtel: [facility] Follow up 04/13/2014 Patient Education: Patient Medication Summary Completed 04/13/2014 Patient Education: Hypertension Completed 04/13/2014 Appointment: Clarice Elaine WPtel: [address] [place], [place] [address] Follow up 12/11/2013 Patient Education: Patient Medication Summary Completed 12/11/2013 Patient Education: Hypertension Completed 12/11/2013 Appointment: Clarice Elaine WPtel: [address] [place] [address] Follow up 11/10/2013 Patient Education: Patient Medication Summary Completed 11/10/2013 Patient Education: Hypertension Completed 11/10/2013 Appointment: Clarice Elaine WPtel: [address] [place], [place] [phone] Lab Draw 11/04/2013 Patient Education: Patient Medication Summary Completed 11/04/2013 Patient Education: Hypertension Completed 11/04/2013 Appointment: Clarice Elaine WPtel: [address] [place], [place] [phone] Follow up 08/11/2013 Patient Education: Patient Medication Summary Completed 08/11/2013 Patient Education: Hypertension Completed 08/11/2013 Appointment: Clarice Elaine WPtel: [address] [place] [address] Follow up 05/12/2013 Patient Education: Patient Medication Summary Completed 05/12/2013 Patient Education: Hypertension Completed 05/12/2013 Appointment: Clarice Elaine WPtel: [address] [place] [address] [place] Follow up 01/06/2013 Patient Education: Patient Medication Summary Completed 01/06/2013 Patient Education: Hypertension Completed 01/06/2013 Appointment: Clarice Elaine WPtel: [address] [place] [address] Follow up 10/07/2012 Patient Education: Patient Medication Summary Completed 10/07/2012 Patient Education: Hypertension Completed 10/07/2012 Appointment: Clarice Elaine WPtel: [address] [place], [place] [phone] Follow up 09/11/2012 Patient Education: Patient Medication Summary Completed 09/11/2012 Patient Education: Patient Medication Summary Completed 08/27/2012 Patient Education: Hypertension Completed 08/27/2012 Appointment: Clarice Elaine WPtel: [address] [place], [place] [phone] Follow up 07/15/2012 Patient Education: Patient Medication Summary Completed 07/15/2012 Patient Education: Hypertension Completed 07/15/2012 Appointment: Clarice Elaine WPtel: [address] [place], [place] [phone] Follow up 05/02/2012 Patient Education: Patient Medication Summary Completed 05/02/2012 Patient Education: High Blood Pressure: Essential Hypertension Completed 2011 Appointment: Clarice Elaine WPtel: [address] [place], [place] [phone] Follow up 03/28/2012 Patient Education: Patient Medication Summary Completed 03/28/2012 Patient Education: High Blood Pressure: Essential Hypertension Completed 2011 Patient Education: Patient Medication Summary Completed 03/26/2012 Patient Education: High Blood Pressure: Essential Hypertension Completed 2011 Patient Education: Patient Medication Summary Completed 01/08/2012 Patient Education: High Blood Pressure: Essential Hypertension Completed 2011 Appointment: Clarice Elaine WPtel: [address] [place], [place] [phone] Follow up 11/27/2011 Patient Education: Patient Medication Summary Completed 11/27/2011 Patient Education: High Blood Pressure: Essential Hypertension Completed 2011 Patient Education: Patient Medication Summary Completed 11/06/2011 Appointment: Clarice Elaine WPtel: [address] [place], [place] [phone] Other 11/03/2011 Appointment: Clarice Elaine WPtel: [address] [place] [id number] Other 11/02/2011 Appointment: Clarice Elaine WPtel: [address] [place], [place] [phone] Lab Draw 10/31/2011 Appointment: Clarice Elaine WPtel: [address] [place], [place] [phone] [place] Follow up 10/25/2011 Patient Education: Patient Medication Summary Completed 10/25/2011 Patient Education: High Blood Pressure: Essential Hypertension Completed 2011 Appointment: Clarice Elaine WPtel: [facility] Lab Draw 10/16/2011 Patient Education: Patient Medication Summary Completed 10/16/2011 Appointment: Clarice Elaine WPtel: [facility] [place] Other 10/11/2011 Patient Education: Patient Medication Summary Completed 10/11/2011 Appointment: Clarice Elaine WPtel: [address] [place] [phone] [place] Other 10/10/2011 Appointment: Clarice Elaine WPtel: [address] [place], [place] [phone] Follow up 10/04/2011 Patient Education: Patient Medication Summary Completed 10/04/2011 Appointment: Clarice Elaine WPtel: [address] [place] [id number] Other 09/25/2011 Patient Education: Patient Medication Summary Completed 09/25/2011 Patient Education: High Blood Pressure: Essential Hypertension Completed 2011 Appointment: Clarice Elaine WPtel: [address] [place] [id number] Other 07/31/2011 Patient Education: Patient Medication Summary Completed 07/31/2011 Patient Education: High Blood Pressure: Essential Hypertension Completed 2011 Appointment: Socorro Salmeron WPtel: [phone] [place] Other 05/22/2011 Patient Education: Patient Medication Summary Completed 05/22/2011 Appointment: Clarice Elaine WPtel: [address] [place], [place] [phone] Other 05/05/2011 Patient Education: Patient Medication Summary Completed 05/05/2011 Patient Education: High Cholesterol Completed 05/05/2011 Appointment: Clarice Elaine WPtel: [address] [place], [place] [phone] [place] Other 05/04/2011 Appointment: [phone] [facility] 05/02/2011 Patient Education: Patient Medication Summary Completed 05/02/2011 Patient Education: High Blood Pressure: Essential Hypertension Completed 2010 Instructions No Instructions
--- OUTSIDE RECORDS SUMMARY | 2017-09-12 15:11 | XMS REPORT | Continuity of Care Document ---
Author Author [facility] Organization [facility] Address Unknown Phone Unavailable Allergies Active Description Code Type Severity Reaction Onset Reported/Identified Relationship to Patient Clinical Status Yes cephalexin [id number] Drug Allergy Unknown N/A 04/23/2006 Yes morphine [id number] Drug Allergy Unknown N/A 04/23/2006 Yes prednisone [id number] Drug Allergy Unknown N/A 04/23/2006 Yes theophylline [id number] Drug Allergy Unknown N/A 04/23/2006 Yes norfloxacin [id number] Drug Allergy Unknown GI INTOLERANCE 09/11/2007 Yes trovafloxacin [id number] Drug Allergy Unknown GI INTOLERANCE 09/11/2007 Yes azithromycin [id number] Drug Allergy Unknown N/A 06/23/2012 Yes levofloxacin [id number] Drug Allergy Unknown N/A 06/23/2012 Yes meloxicam [id number] Drug Allergy Unknown N/A 06/23/2012 Yes metronidazole [id number] Drug Allergy Unknown N/A 06/23/2012 Yes prednisone [id number] Drug Allergy Moderate STOMACH BLEED 10/19/2015 Yes metoprolol [id number] Drug Allergy Unknown NECK SPASMS 10/18/2016 Medications There is no data. Problems Date Dx Coded Attending Type Code Diagnosis Diagnosed By 12/08/2009 Ot 473.0 12/08/2009 Ot 493.92 12/08/2009 Ot 780.4 09/23/2011 Ot 244.9 HYPOTHYROIDISM NOS 09/23/2011 Ot 250.00 DIAB LIZZETH WO COMPL, TYPE II OR UNSPEC TY 09/23/2011 Ot 278.02 OVERWEIGHT 09/23/2011 Ot 300.00 ANXIETY STATE NOS 09/23/2011 Ot 401.9 HYPERTENSION NOS 09/23/2011 Ot 414.01 CORONARY ATHEROSCLEROSIS OF [place] CORON 09/23/2011 Ot 493.90 ASTHMA, UNSPECIFIED 09/23/2011 Ot 530.81 ESOPHAGEAL REFLUX 09/23/2011 Ot V85.35 BODY MASS INDEX 35.0-35.9, ADULT 10/05/2011 Ot 729.82 CRAMP IN LIMB 10/05/2011 Ot 787.02 NAUSEA ALONE 10/05/2011 Ot 792.1 ABN FIND- STOOL CONTENTS 10/06/2011 Ot 530.11 REFLUX ESOPHAGITIS 10/06/2011 Ot 535.50 UNSP GASTRITIS GASTRODUODENITIS W/O ME 10/06/2011 Ot 553.3 DIAPHRAGMATIC HERNIA 01/03/2012 Ot 792.1 ABN FIND- STOOL CONTENTS 01/03/2012 Ot V58.69 OTH MED,LT, CURRENT USE 01/09/2012 Ot 285.9 ANEMIA NOS 06/28/2012 Ot 244.9 HYPOTHYROIDISM NOS 06/28/2012 Ot 250.00 DIAB LIZZETH WO COMPL, TYPE II OR UNSPEC TY 06/28/2012 Ot 272.4 HYPERLIPIDEMIA NEC/NOS 06/28/2012 Ot 285.29 ANEMIA OF OTHER CHRONIC DISEASE 06/28/2012 Ot 300.00 ANXIETY STATE NOS 06/28/2012 Ot 401.9 HYPERTENSION NOS 06/28/2012 Ot 414.01 CORONARY ATHEROSCLEROSIS OF [place] CORON 06/28/2012 Ot 427.31 ATRIAL FIBRILLATION 06/28/2012 Ot 455.0 INT HEMORRHOID W/O COMPL 06/28/2012 Ot 455.3 EXT HEMORRHOID W/O COMPL 06/28/2012 Ot 493.90 ASTHMA, UNSPECIFIED 06/28/2012 Ot 530.11 REFLUX ESOPHAGITIS 06/28/2012 Ot 530.81 ESOPHAGEAL REFLUX 06/28/2012 Ot 535.51 UNSPEC GASTRITIS GASTRODUODENITIS, W/ 06/28/2012 Ot 553.3 DIAPHRAGMATIC HERNIA 06/28/2012 Ot 562.10 DIVERTICULOSIS COLON (W/O MENT OF HEMORR 06/28/2012 Ot 569.0 ANAL RECTAL POLYP 06/28/2012 Ot 715.90 OSTEOARTHROS NOS-UNSPEC 06/28/2012 Ot 733.6 TIETZE'S DISEASE 06/28/2012 Ot 792.1 ABN FIND- STOOL CONTENTS 06/28/2012 Ot V12.51 HX-VENOUS THROMBOSIS EMBOLISM 06/28/2012 Ot V12.55 PERSONAL HISTORY OF PULMONARY EMBOLISM 06/28/2012 Ot V17.3 FAM HX- ISCHE[place] HEART DIS 06/28/2012 Ot V45.82 PERCUTANEOUS TRANSLUM CORON ANGIOPLASTY 12/23/2012 JUAN FRANCISCO VEGA MD Ot 244.9 HYPOTHYROIDISM NOS 12/23/2012 JUAN FRANCISCO VEGA MD Ot 250.00 DIAB LIZZETH WO COMPL, TYPE II OR UNSPEC TY 12/23/2012 JUAN FRANCISCO VEGA MD Ot 272.4 HYPERLIPIDEMIA NEC/NOS 12/23/2012 JUAN FRANCISCO VEGA MD Ot 372.30 CONJUNCTIVITIS NOS 12/23/2012 JUAN FRANCISCO VEGA MD Ot 401.9 HYPERTENSION NOS 12/23/2012 JUAN FRANCISCO VEGA MD Ot 414.01 CORONARY ATHEROSCLEROSIS OF [place] CORON 12/23/2012 JUAN FRANCISCO VEGA MD Ot 427.31 ATRIAL FIBRILLATION 12/23/2012 JUAN FRANCISCO VEGA MD Ot 682.0 CELLULITIS OF FACE 10/17/2013 LEANNA DSOUZA MD Ot 244.9 HYPOTHYROIDISM NOS 10/17/2013 LEANNA DSOUZA MD Ot 250.00 DIAB LIZZETH WO COMPL, TYPE II OR UNSPEC TY 10/17/2013 LEANNA DSOUZA MD Ot 272.4 HYPERLIPIDEMIA NEC/NOS 10/17/2013 LEANNA DSOUZA MD Ot 278.00 OBESITY, NOS 10/17/2013 LEANNA DSOUZA MD Ot 401.9 HYPERTENSION NOS 10/17/2013 LEANNA DSOUZA MD Ot 414.01 CORONARY ATHEROSCLEROSIS OF [place] CORON 10/17/2013 LEANNA DSOUZA MD Ot 427.31 ATRIAL FIBRILLATION 10/17/2013 LEANNA DSOUZA MD Ot 496 CHR AIRWAY OBSTRUCT NEC 10/17/2013 LEANNA DSOUZA MD Ot 794.30 ABN CARDIOVASC STUDY NOS 10/17/2013 LEANNA DSOUZA MD Ot V45.82 PERCUTANEOUS TRANSLUM CORON ANGIOPLASTY 10/17/2013 LEANNA DSOUZA MD Ot V58.63 LONG-TERM(CURRENT)USE OF ANTIPLATELET/AN 10/17/2013 LEANNA DSOUZA MD Ot V58.69 OT MED,LT,CURRENT USE 10/17/2013 LEANNA DSOUZA MD Ot V85.32 BODY MASS INDEX 32.0-32.9, ADULT 12/10/2013 STACY INFANTE DO Ot 250.00 DIAB LIZZETH WO COMPL, TYPE II OR UNSPEC TY 12/10/2013 STACY INFANTE DO Ot 473.9 CHRONIC SINUSITIS NOS 12/10/2013 STACY INFANTE DO Ot 493.90 ASTHMA, UNSPECIFIED 12/10/2013 STACY INFANTE DO Ot 530.81 ESOPHAGEAL REFLUX 12/10/2013 STACY INFANTE DO Ot 716.90 ARTHROPATHY NOS-UNSPEC 12/10/2013 STACY INFANTE DO Ot 780.4 DIZZINESS AND GIDDINESS 12/10/2013 STACY INFANTE DO Ot 784.0 HEADACHE 09/02/2014 LEANNA DSOUZA MD Ot 414.01 09/02/2014 MEET REINA, LEANNA Mayer Ot 427.31 11/09/2014 Ot 726.73 11/09/2014 Ot 729.5 11/09/2014 Ot 734 11/09/2014 Ot V76.12 11/09/2014 Ot V76.12 11/09/2014 Ot 723.1 11/09/2014 Ot 285.9 11/09/2014 Ot 272.4 11/09/2014 Ot 401.9 11/09/2014 Ot 414.00 11/09/2014 Ot 414.01 11/09/2014 Ot 786.50 11/09/2014 Ot 792.1 11/09/2014 Ot V58.69 11/09/2014 Ot 285.9 11/09/2014 Ot 473.9 11/09/2014 Ot 611.72 11/09/2014 Ot 784.2 11/09/2014 Ot 786.6 11/09/2014 MEET REINA, LEANNA Mayer Ot 272.4 11/09/2014 MEET REINA, LEANNA Mayer Ot 397.0 11/09/2014 LEANNA DSOUZA MD Ot 414.00 11/09/2014 MEET REINA, LEANNA Mayer Ot 424.0 11/09/2014 MEET REINA, LEANNA Mayer Ot 427.31 11/09/2014 MEET REINA, LEANNA Mayer Ot 414.01 11/09/2014 MEET REINA, LEANNA Mayer Ot 427.31 12/07/2014 MEET REINA, LEANNA Mayer Ot 401.9 12/07/2014 MEET REINA, LEANNA Mayer Ot 414.00 12/07/2014 LEANNA DSOUZA MD Ot 786.50 12/07/2014 LEANNA DSOUZA MD Ot V12.51 12/31/2014 MEET REINA, LEANNA Mayer Ot 401.9 12/31/2014 MEET REINA, LEANNA Mayer Ot 414.00 12/31/2014 LEANNA DSOUZA MD Ot 786.50 12/31/2014 MEET REINA, LEANNA Mayer Ot V12.51 02/15/2015 JULIAN MARTIN DO Ot 300.00 02/15/2015 JULIAN MARTIN DO Ot 493.90 02/15/2015 JULIAN MARTIN DO Ot 786.09 03/12/2015 JULIAN MARTIN DO Ot 300.00 03/12/2015 JULIAN MARTIN DO Ot 493.90 03/12/2015 JULIAN MARTIN DO Ot 786.09 09/10/2015 JUAN FRANCISCO VEGA MD Ot E11.9 TYPE 2 DIABETES MELLITUS WITHOUT COMPLIC 09/10/2015 JUAN FRANCISCO VEGA MD Ot E78.5 HYPERLIPIDEMIA, UNSPECIFIED 09/10/2015 JUAN FRANCISCO VEGA MD Ot E89.0 POSTPROCEDURAL HYPOTHYROIDISM 09/10/2015 JUAN FRANCISCO VEGA MD Ot F41.9 ANXIETY DISORDER, UNSPECIFIED 09/10/2015 JUAN FRANCISCO VEGA MD Ot I25.10 ATHSCL HEART DISEASE OF [place] CORONARY 09/10/2015 JUAN FRANCISCO VEGA MD Ot I48.0 PAROXYSMAL ATRIAL FIBRILLATION 09/10/2015 JUAN FRANCISCO VEGA MD Ot J45.909 UNSPECIFIED ASTHMA, UNCOMPLICATED 09/10/2015 JUAN FRANCISCO VEGA MD Ot K21.9 GASTRO-ESOPHAGEAL REFLUX DISEASE WITHOUT 09/10/2015 JUAN FRANCISCO VEGA MD Ot R07.9 CHEST PAIN, UNSPECIFIED 09/10/2015 JUAN FRANCISCO VEGA MD Ot Z79.02 USP (CURRENT) USE OF ANTITHROMBOTI 09/10/2015 JUAN FRANCISCO VEGA MD Ot Z95.5 PRESENCE OF CORONARY ANGIOPLASTY IMPLANT 10/19/2015 Ot 792.1 10/19/2015 Ot V58.69 10/19/2015 Ot 285.9 10/20/2015 JUAN FRANCISCO VEGA MD Ot E11.9 10/20/2015 JUAN FRANCISCO VEGA MD Ot E78.5 10/20/2015 JUAN FRANCISCO VEGA MD Ot E87.3 10/20/2015 JUAN FRANCISCO VEGA MD Ot E89.0 10/20/2015 JUAN FRANCISCO VEGA MD Ot F41.9 10/20/2015 JUAN FRANCISCO VEGA MD Ot I10 10/20/2015 JUAN FRANCISCO VEGA MD Ot I25.10 10/20/2015 SILVIA REINA, JUAN FRANCISCO A Ot I48.0 10/20/2015 SILVIA REINA, JUAN FRANCISCO A Ot J30.2 10/20/2015 SILVIA REINA, JUAN FRANCISCO A Ot J44.9 10/20/2015 SILVIA REINA, JUAN FRANCISCO A Ot J45.909 10/20/2015 SILVIA REINA, JUAN FRANCISCO A Ot K21.9 10/20/2015 SILVIA REINA, JUAN FRANCISCO A Ot M06.9 10/20/2015 SILVIA REINA, JUAN FRANCISCO A Ot R07.89 10/20/2015 SILVIA REINA, JUAN FRANCISCO A Ot Z86.718 10/20/2015 SILVIA REINA, JUAN FRANCISCO A Ot Z95.5 10/21/2015 SILVIA REINA, JUAN FRANCISCO A Ot E11.9 10/21/2015 SILVIA REINA, JUAN FRANCISCO A Ot E78.5 10/21/2015 SILVIA REINA, JUAN FRANCISCO A Ot E87.3 10/21/2015 SILVIA REINA, JUAN FRANCISCO A Ot E89.0 10/21/2015 SILVIA REINA, JUAN FRANCISCO A Ot F41.9 10/21/2015 SILVIA REINA, JUAN FRANCISCO A Ot I10 10/21/2015 SILVIA REINA, JUAN FRANCISCO A Ot I25.10 10/21/2015 SILVIA REINA, JUAN FRANCISCO A Ot I48.0 10/21/2015 SILVIA REINA, JUAN FRANCISCO A Ot J30.2 10/21/2015 SILVIA REINA, JUAN FRANCISCO A Ot J44.9 10/21/2015 SILVIA REINA, JUAN FRANCISCO A Ot J45.909 10/21/2015 SILVIA REINA, JUAN FRANCISCO A Ot K21.9 10/21/2015 SILVIA REINA, JUAN FRANCISCO A Ot M06.9 10/21/2015 SILVIA REINA, JUAN FRANCISCO A Ot R07.89 10/21/2015 SILVIA REINA, JUAN FRANCISCO A Ot Z86.718 10/21/2015 SILVIA REINA, JUAN FRANCISCO A Ot Z95.5 10/21/2015 SILVIA REINA, JUAN FRANCISCO A Ot E03.9 HYPOTHYROIDISM, UNSPECIFIED 10/21/2015 SILVIA REINA, JUAN FRANCISCO A Ot E11.9 TYPE 2 DIABETES MELLITUS WITHOUT COMPLIC 10/21/2015 SILVIA REINA, JUAN FRANCISCO A Ot E78.5 HYPERLIPIDEMIA, UNSPECIFIED 10/21/2015 JUAN FRANCISCO VEGA MD Ot E87.3 ALKALOSIS 10/21/2015 JUAN FRANCISCO VEGA MD Ot E89.0 POSTPROCEDURAL HYPOTHYROIDISM 10/21/2015 JUAN FRANCISCO VEGA MD Ot F41.9 ANXIETY DISORDER, UNSPECIFIED 10/21/2015 JUAN FRANCISCO VEGA MD Ot I10 ESSENTIAL (PRIMARY) HYPERTENSION 10/21/2015 JUAN FRANCISCO VEGA MD Ot I25.10 ATHSCL HEART DISEASE OF [place] CORONARY 10/21/2015 JUAN FRANCISCO VEGA MD Ot I48.0 PAROXYSMAL ATRIAL FIBRILLATION 10/21/2015 JUAN FRANCISCO VEGA MD Ot 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 10/21/2015 JUAN FRANCISCO VEGA MD Ot J30.2 OTHER SEASONAL ALLERGIC RHINITIS 10/21/2015 JUAN FRANCISCO VEGA MD Ot J44.1 CHRONIC OBSTRUCTIVE PULMONARY DISEASE W 10/21/2015 JUAN FRANCISCO VEGA MD Ot K21.9 GASTRO-ESOPHAGEAL REFLUX DISEASE WITHOUT 10/21/2015 JUAN FRANCISCO VEGA MD Ot M06.9 RHEUMATOID ARTHRITIS, UNSPECIFIED 10/21/2015 JUAN FRANCISCO VEGA MD Ot R07.89 OTHER CHEST PAIN 10/21/2015 JUAN FRANCISCO VEGA MD Ot Z86.718 PERSONAL HISTORY OF OTHER VENOUS THROMBO 10/21/2015 JUAN FRANCISCO VEGA MD Ot Z95.5 PRESENCE OF CORONARY ANGIOPLASTY IMPLANT 10/21/2015 JUAN FRANCISCO VEGA MD Ot E03.9 HYPOTHYROIDISM, UNSPECIFIED 10/21/2015 JUAN FRANCISCO VEGA MD Ot E11.9 TYPE 2 DIABETES MELLITUS WITHOUT COMPLIC 10/21/2015 JUAN FRANCISCO VEGA MD Ot E78.5 HYPERLIPIDEMIA, UNSPECIFIED 10/21/2015 JUAN FRANCISCO VEGA MD Ot E87.3 ALKALOSIS 10/21/2015 JUAN FRANCISCO VEGA MD Ot E89.0 POSTPROCEDURAL HYPOTHYROIDISM 10/21/2015 JUAN FRANCISCO VEGA MD Ot F41.9 ANXIETY DISORDER, UNSPECIFIED 10/21/2015 JUAN FRANCISCO VEGA MD Ot I10 ESSENTIAL (PRIMARY) HYPERTENSION 10/21/2015 JUAN FRANCISCO VEGA MD Ot I25.10 ATHSCL HEART DISEASE OF [place] CORONARY 10/21/2015 JUAN FRANCISCO VEGA MD Ot I48.0 PAROXYSMAL ATRIAL FIBRILLATION 10/21/2015 JUAN FRANCISCO VEGA MD Ot 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 10/21/2015 JUAN FRANCISCO VEGA MD Ot J30.2 OTHER SEASONAL ALLERGIC RHINITIS 10/21/2015 JUAN FRANCISCO VEGA MD Ot J44.1 CHRONIC OBSTRUCTIVE PULMONARY DISEASE W 10/21/2015 JUAN FRANCISCO VEGA MD Ot K21.9 GASTRO-ESOPHAGEAL REFLUX DISEASE WITHOUT 10/21/2015 JUAN FRANCISCO VEGA MD Ot M06.9 RHEUMATOID ARTHRITIS, UNSPECIFIED 10/21/2015 JUAN FRANCISCO VEGA MD Ot R07.89 OTHER CHEST PAIN 10/21/2015 JUAN FRANCISCO VEGA MD Ot Z86.718 PERSONAL HISTORY OF OTHER VENOUS THROMBO 10/21/2015 JUAN FRANCISCO VEGA MD Ot Z95.5 PRESENCE OF CORONARY ANGIOPLASTY IMPLANT 04/19/2016 Ot V76.12 OTH SCREEN MAMMO-MALIGN NEOPLASM OF [place] 04/19/2016 Ot 723.1 CERVICALGIA 04/19/2016 Ot 285.9 ANEMIA NOS 04/19/2016 Ot 272.4 HYPERLIPIDEMIA NEC/NOS 04/19/2016 Ot 401.9 HYPERTENSION NOS 04/19/2016 Ot 414.00 CORON ATHEROSCLER NOS TYPE VESSEL, NATIV 04/19/2016 Ot 414.01 CORONARY ATHEROSCLEROSIS OF [place] CORON 04/19/2016 Ot 786.50 CHEST PAIN NOS 04/19/2016 Ot 792.1 ABN FIND- STOOL CONTENTS 04/19/2016 Ot V58.69 OTH MED,LT, CURRENT USE 04/19/2016 Ot 285.9 ANEMIA NOS 04/19/2016 Ot 473.9 CHRONIC SINUSITIS NOS 04/19/2016 Ot 611.72 LUMP OR MASS IN BREAST 04/19/2016 Ot 784.2 SWELLING IN HEAD NECK 04/19/2016 Ot 786.6 CHEST SWELLING/MASS/LUMP 04/19/2016 LEANNA DSOUZA MD Ot 272.4 HYPERLIPIDEMIA NEC/NOS 04/19/2016 LEANNA DSOUZA MD Ot 397.0 TRICUSPID VALVE DISEASE 04/19/2016 LEANNA DSOUZA MD Ot 414.00 CORON ATHEROSCLER NOS TYPE VESSEL, NATIV 04/19/2016 LEANNA DSOUZA MD Ot 424.0 MITRAL VALVE DISORDER 04/19/2016 LEANNA DSOUZA MD Ot 427.31 ATRIAL FIBRILLATION 04/19/2016 LEANNA DSOUZA MD Ot 414.01 CORONARY ATHEROSCLEROSIS OF [place] CORON 04/19/2016 LEANNA DSOUZA MD Ot 427.31 ATRIAL FIBRILLATION 04/19/2016 MEET REINA, LEANNA Mayer Ot 401.9 HYPERTENSION NOS 04/19/2016 LEANNA DSOUZA MD Ot 414.00 CORON ATHEROSCLER NOS TYPE VESSEL, NATIV 04/19/2016 LEANNA DSOUZA MD Ot 786.50 CHEST PAIN NOS 04/19/2016 LEANNA DSOUZA MD Ot V12.51 HX-VENOUS THROMBOSIS EMBOLISM 04/19/2016 JULIAN MARTIN DO Ot 300.00 ANXIETY STATE NOS 04/19/2016 JULIAN MARTIN DO Ot 493.90 ASTHMA, UNSPECIFIED 04/19/2016 JULIAN MARTIN DO Ot 786.09 RESPIRATORY ABNORM NEC 04/20/2016 JULIAN MARTIN DO Ot E66.9 OBESITY, UNSPECIFIED 04/20/2016 JULIAN MARTIN DO Ot J45.909 UNSPECIFIED ASTHMA, UNCOMPLICATED 04/20/2016 JULIAN MARTIN DO Ot R06.00 DYSPNEA, UNSPECIFIED 04/21/2016 JULIAN MARTIN DO Ot E66.9 OBESITY, UNSPECIFIED 04/21/2016 JULIAN MARTIN DO Ot J45.909 UNSPECIFIED ASTHMA, UNCOMPLICATED 04/21/2016 JULIAN MARTIN DO Ot R06.00 DYSPNEA, UNSPECIFIED 04/25/2016 JULIAN MARTIN DO Ot E66.9 OBESITY, UNSPECIFIED 04/25/2016 JULIAN MARTIN DO Ot J45.909 UNSPECIFIED ASTHMA, UNCOMPLICATED 04/25/2016 JULIAN MARTIN DO Ot R06.00 DYSPNEA, UNSPECIFIED 05/10/2016 JULIAN MARTIN DO Ot E66.9 OBESITY, UNSPECIFIED 05/10/2016 JULIAN MARTIN DO Ot J45.909 UNSPECIFIED ASTHMA, UNCOMPLICATED 05/10/2016 JULIAN MARTIN DO Ot R06.00 DYSPNEA, UNSPECIFIED 05/22/2016 JULIAN MARTIN DO Ot E66.9 OBESITY, UNSPECIFIED 05/22/2016 JULIAN MARTIN DO Ot J45.909 UNSPECIFIED ASTHMA, UNCOMPLICATED 05/22/2016 JULIAN MARTIN DO Ot R06.00 DYSPNEA, UNSPECIFIED 10/18/2016 Ot 792.1 ABN FIND- STOOL CONTENTS 10/18/2016 Ot V58.69 OT MED,LT, CURRENT USE 10/18/2016 Ot 285.9 ANEMIA NOS 10/19/2016 JUAN FRANCISCO VEGA MD Ot E11.9 TYPE 2 DIABETES MELLITUS WITHOUT COMPLIC 10/19/2016 JUAN FRANCISCO VEGA MD Ot E78.00 PURE HYPERCHOLESTEROLEMIA, UNSPECIFIED 10/19/2016 JUAN FRANCISCO VEGA MD Ot E89.0 POSTPROCEDURAL HYPOTHYROIDISM 10/19/2016 JUAN FRANCISCO VEGA MD Ot F41.9 ANXIETY DISORDER, UNSPECIFIED 10/19/2016 JUAN FRANCISCO VEGA MD Ot I10 ESSENTIAL (PRIMARY) HYPERTENSION 10/19/2016 JUAN FRANCISCO VEGA MD Ot I25.10 ATHSCL HEART DISEASE OF [place] CORONARY 10/19/2016 JUAN FRANCISCO VEGA MD Ot I48.91 UNSPECIFIED ATRIAL FIBRILLATION 10/19/2016 JUAN FRANCISCO VEGA MD Ot J30.2 OTHER SEASONAL ALLERGIC RHINITIS 10/19/2016 JUAN FRANCISCO VEGA MD Ot J45.909 UNSPECIFIED ASTHMA, UNCOMPLICATED 10/19/2016 JUAN FRANCISCO VEGA MD Ot K21.9 GASTRO-ESOPHAGEAL REFLUX DISEASE WITHOUT 10/19/2016 JUAN FRANCISCO VEGA MD Ot M06.9 RHEUMATOID ARTHRITIS, UNSPECIFIED 10/19/2016 JUAN FRANCISCO VEGA MD Ot M19.91 PRIMARY OSTEOARTHRITIS, UNSPECIFIED SITE 10/19/2016 JUAN FRANCISCO VEGA MD Ot R06.00 DYSPNEA, UNSPECIFIED 10/19/2016 JUAN FRANCISCO VEGA MD Ot R10.13 EPIGASTRIC PAIN 10/19/2016 JUAN FRANCISCO VEGA MD Ot Z79.84 PHYSICIAN ANESTHESIOLOGIST (CURRENT) USE OF ORAL HYPOGLYC 10/19/2016 JUAN FRANCISCO VEGA MD Ot Z95.5 PRESENCE OF CORONARY ANGIOPLASTY IMPLANT 10/20/2016 JUAN FRANCISCO VEGA MD Ot E11.9 TYPE 2 DIABETES MELLITUS WITHOUT COMPLIC 10/20/2016 JUAN FRANCISCO VEGA MD Ot E78.00 PURE HYPERCHOLESTEROLEMIA, UNSPECIFIED 10/20/2016 JUAN FRANCISCO VEGA MD Ot E89.0 POSTPROCEDURAL HYPOTHYROIDISM 10/20/2016 JUAN FRANCISCO VEGA MD Ot F41.9 ANXIETY DISORDER, UNSPECIFIED 10/20/2016 JUAN FRANCISCO VEGA MD Ot I10 ESSENTIAL (PRIMARY) HYPERTENSION 10/20/2016 JUAN FRANCISCO VEGA MD Ot I25.10 ATHSCL HEART DISEASE OF [place] CORONARY 10/20/2016 JUAN FRANCISCO VEGA MD Ot I48.91 UNSPECIFIED ATRIAL FIBRILLATION 10/20/2016 JUAN FRANCISCO VEGA MD Ot J30.2 OTHER SEASONAL ALLERGIC RHINITIS 10/20/2016 JUAN FRANCISCO VEGA MD Ot J45.909 UNSPECIFIED ASTHMA, UNCOMPLICATED 10/20/2016 JUAN FRANCISCO VEGA MD Ot K21.0 GASTRO-ESOPHAGEAL REFLUX DISEASE WITH ES 10/20/2016 JUAN FRANCISCO VEGA MD Ot K29.70 GASTRITIS, UNSPECIFIED, WITHOUT BLEEDING 10/20/2016 JUAN FRANCISCO VEGA MD Ot K29.80 DUODENITIS WITHOUT BLEEDING 10/20/2016 JUAN FRANCISCO VEGA MD Ot K44.9 DIAPHRAGMATIC HERNIA WITHOUT OBSTRUCTION 10/20/2016 JUAN FRANCISCO VEGA MD Ot M06.9 RHEUMATOID ARTHRITIS, UNSPECIFIED 10/20/2016 JUAN FRANCISCO VEGA MD Ot M19.91 PRIMARY OSTEOARTHRITIS, UNSPECIFIED SITE 10/20/2016 JUAN FRANCISCO VEGA MD Ot R06.00 DYSPNEA, UNSPECIFIED 10/20/2016 JUAN FRANCISCO VEGA MD Ot Z79.84 PHYSICIAN ANESTHESIOLOGIST (CURRENT) USE OF ORAL HYPOGLYC 10/20/2016 JUAN FRANCISCO VEGA MD Ot Z86.711 PERSONAL HISTORY OF PULMONARY EMBOLISM 10/20/2016 JUAN FRANCISCO VEGA MD Ot Z86.718 PERSONAL HISTORY OF OTHER VENOUS THROMBO 10/20/2016 JUAN FRANCISCO VEGA MD Ot Z95.5 PRESENCE OF CORONARY ANGIOPLASTY IMPLANT 05/16/2017 CR CASON APRN Ot E11.9 TYPE 2 DIABETES MELLITUS WITHOUT COMPLIC 05/16/2017 CR CASON APRN Ot E78.00 PURE HYPERCHOLESTEROLEMIA, UNSPECIFIED 05/16/2017 CR CASON APRN Ot I10 ESSENTIAL (PRIMARY) HYPERTENSION 05/16/2017 CR CASON APRN Ot I25.10 ATHSCL HEART DISEASE OF [place] CORONARY 05/16/2017 CR CASON APRN Ot J44.9 CHRONIC OBSTRUCTIVE PULMONARY DISEASE, U 05/16/2017 CR CASON APRN Ot K21.9 GASTRO-ESOPHAGEAL REFLUX DISEASE WITHOUT 05/16/2017 CR CASON APRN Ot M06.9 RHEUMATOID ARTHRITIS, UNSPECIFIED 05/16/2017 CR CASON APRN Ot R10.11 RIGHT UPPER QUADRANT PAIN 05/16/2017 CR CASON APRN Ot S39.011A STRAIN OF MUSCLE, FASCIA AND TENDON OF A 05/16/2017 CR CASON APRN Ot Z79.84 PHYSICIAN ANESTHESIOLOGIST (CURRENT) USE OF ORAL HYPOGLYC 05/16/2017 CR CASON APRN Ot Z82.49 FAMILY HX OF ISCHEM HEART DIS AND OTH DI 05/16/2017 CR CASON APRN Ot Z86.718 PERSONAL HISTORY OF OTHER VENOUS THROMBO 05/16/2017 CR CASON APRN Ot Z95.5 PRESENCE OF CORONARY ANGIOPLASTY IMPLANT 06/01/2017 RACHAEL PIMENTEL MD Ot E11.9 TYPE 2 DIABETES MELLITUS WITHOUT COMPLIC 06/01/2017 RACHAEL PIMENTEL MD Ot E78.00 PURE HYPERCHOLESTEROLEMIA, UNSPECIFIED 06/01/2017 RACHAEL PIMENTEL MD Ot I10 ESSENTIAL (PRIMARY) HYPERTENSION 06/01/2017 RACHAEL PIMENTEL MD Ot I25.10 ATHSCL HEART DISEASE OF [place] CORONARY 06/01/2017 RACHAEL PIMENTEL MD Ot J01.90 ACUTE SINUSITIS, UNSPECIFIED 06/01/2017 RACHAEL PIMENTEL MD, Ot J44.9 CHRONIC OBSTRUCTIVE PULMONARY DISEASE, U 06/01/2017 RACHAEL PIMENTEL MD Ot K21.9 GASTRO-ESOPHAGEAL REFLUX DISEASE WITHOUT 06/01/2017 RACHAEL PIMENTEL MD Ot M06.9 RHEUMATOID ARTHRITIS, UNSPECIFIED 06/01/2017 RACHAEL PIMENTEL MD Ot R42 DIZZINESS AND GIDDINESS 06/01/2017 RACHAEL PIMENTEL MD Ot Z79.84 PHYSICIAN ANESTHESIOLOGIST (CURRENT) USE OF ORAL HYPOGLYC 06/01/2017 RACHAEL PIMENTEL MD Ot Z82.49 FAMILY HX OF [place] HEART DIS AND OTH DI 06/01/2017 RACHAEL PIMENTEL MD Ot Z86.711 PERSONAL HISTORY OF PULMONARY EMBOLISM 06/01/2017 RACHAEL PIMENTEL MD Ot Z86.718 PERSONAL HISTORY OF OTHER VENOUS THROMBO 06/01/2017 RACHAEL PIMENTEL MD Ot Z90.89 ACQUIRED ABSENCE OF OTHER ORGANS 06/01/2017 RACHAEL PIMENTEL MD Ot Z95.5 PRESENCE OF CORONARY ANGIOPLASTY IMPLANT Procedures Code Description Performed By Performed On 00.40 09/22/2011 00.45 09/22/2011 00.66 09/22/2011 36.07 09/22/2011 37.22 09/22/2011 88.53 09/22/2011 88.56 09/22/2011 45.16 06/27/2012 48.24 06/27/2012 [id number] 09/10/2015 [id number] 09/10/2015 [id number] EXCISION OF ESOPHAGOGASTRIC JUNCTION, EN 10/19/2016 [id number] EXCISION OF STOMACH, PYLORUS, ENDO, DIAG 10/19/2016 [id number] EXCISION OF DUODENUM, ENDO , DIAGN 10/19/2016 Results Test Result Range Complete blood count (CBC) with automated white blood cell (WBC) differential - 10/18/16 11:45 Blood leukocytes automated count (number/volume) 10.5 10*3/uL 4.3-11.0 Blood erythrocytes automated count (number/volume) 5.31 10*6/uL 4.35-5.85 Venous blood hemoglobin measurement (mass/volume) 14.1 g/dL 11.5-16.0 Blood hematocrit (volume fraction) 44 % 35-52 Automated erythrocyte mean corpuscular volume 83 [foz_us] 80-99 Automated erythrocyte mean corpuscular hemoglobin (mass per erythrocyte) 27 pg 25-34 Automated erythrocyte mean corpuscular hemoglobin concentration measurement ( mass/volume) 32 g/dL 32-36 Automated erythrocyte distribution width ratio 16.2 % 10.0-14.5 Automated blood platelet count (count/volume) 327 10*3/uL 130-400 Automated blood platelet mean volume measurement 10.3 [foz_us] 7.4-10.4 Automated blood neutrophils/100 leukocytes 74 % 42-75 Automated blood lymphocytes/100 leukocytes 16 % 12-44 Blood monocytes/100 leukocytes 9 % 0-12 Automated blood eosinophils/100 leukocytes 1 % 0-10 Automated blood basophils/100 leukocytes 1 % 0-10 Blood neutrophils automated count (number/volume) 7.7 10*3 1.8-7.8 Blood lymphocytes automated count (number/volume) 1.6 10*3 1.0-4.0 Blood monocytes automated count (number/volume) 1.0 10*3 0.0-1.0 Automated eosinophil count 0.2 10*3/uL 0.0-0.3 Automated blood basophil count (count/volume) 0.1 10*3/uL 0.0-0.1 Comprehensive metabolic panel - 10/18/16 11:45 Serum or plasma sodium measurement (moles/volume) 141 mmol/L 135-145 Serum or plasma potassium measurement (moles/volume) 4.1 mmol/L 3.6-5.0 Serum or plasma chloride measurement (moles/volume) 103 mmol/L 98-107 Carbon dioxide 28 mmol/L 21-32 Serum or plasma anion gap determination (moles/volume) 10 mmol/L 5-14 Serum or plasma urea nitrogen measurement (mass/volume) 15 mg/dL 7-18 Serum or plasma creatinine measurement (mass/volume) 0.71 mg/dL 0.60-1.30 Serum or plasma urea nitrogen/creatinine mass ratio 21 NRG Serum or plasma creatinine measurement with calculation of estimated glomerular filtration rate > NRG Serum or plasma glucose measurement (mass/volume) 164 mg/dL 70-105 Serum or plasma calcium measurement (mass/volume) 9.4 mg/dL 8.5-10.1 Serum or plasma total bilirubin measurement (mass/volume) 0.6 mg/dL 0.1-1.0 Serum or plasma alkaline phosphatase measurement (enzymatic activity/volume) 71 U/L 40-136 Serum or plasma aspartate aminotransferase measurement (enzymatic activity/ volume) 18 U/L 5-34 Serum or plasma alanine aminotransferase measurement (enzymatic activity/volume ) 18 U/L 0-55 Serum or plasma protein measurement (mass/volume) 6.6 g/dL 6.4-8.2 Serum or plasma albumin measurement (mass/volume) 3.9 g/dL 3.2-4.5 [id number] - 10/18/16 11:45 [id number] SPECIMEN AVAILABLE NRG Serum or plasma troponin i.cardiac measurement (mass/volume) - 10/18/16 11:45 Serum or plasma troponin i.cardiac measurement (mass/volume) < ng/ mL <0.30 THYROID STIMULATING HORMONE - 10/18/16 11:45 THYROID STIMULATING HORMONE 0.84 u[iU]/mL 0.35-4.94 Digoxin - 10/18/16 11:45 Digoxin 1.12 ng/mL 0.80-2.00 Serum or plasma troponin i.cardiac measurement (mass/volume) - 10/18/16 17:11 Serum or plasma troponin i.cardiac measurement (mass/volume) < ng/ mL <0.30 Automated blood complete blood count (hemogram) panel - 10/19/16 04:54 Blood leukocytes automated count (number/volume) 7.1 10*3/uL 4.3-11.0 Blood erythrocytes automated count (number/volume) 4.75 10*6/uL 4.35-5.85 Venous blood hemoglobin measurement (mass/volume) 12.8 g/dL 11.5-16.0 Blood hematocrit (volume fraction) 40 % 35-52 Automated erythrocyte mean corpuscular volume 84 [foz_us] 80-99 Automated erythrocyte mean corpuscular hemoglobin (mass per erythrocyte) 27 pg 25-34 Automated erythrocyte mean corpuscular hemoglobin concentration measurement ( mass/volume) 32 g/dL 32-36 Automated erythrocyte distribution width ratio 16.2 % 10.0-14.5 Automated blood platelet count (count/volume) 292 10*3/uL 130-400 Automated blood platelet mean volume measurement 10.7 [foz_us] 7.4-10.4 Comprehensive metabolic panel - 10/19/16 04:54 Serum or plasma sodium measurement (moles/volume) 140 mmol/L 135-145 Serum or plasma potassium measurement (moles/volume) 4.1 mmol/L 3.6-5.0 Serum or plasma chloride measurement (moles/volume) 107 mmol/L 98-107 Carbon dioxide 21 mmol/L 21-32 Serum or plasma anion gap determination (moles/volume) 12 mmol/L 5-14 Serum or plasma urea nitrogen measurement (mass/volume) 16 mg/dL 7-18 Serum or plasma creatinine measurement (mass/volume) 0.82 mg/dL 0.60-1.30 Serum or plasma urea nitrogen/creatinine mass ratio 20 NRG Serum or plasma creatinine measurement with calculation of estimated glomerular filtration rate > NRG Serum or plasma glucose measurement (mass/volume) 376 mg/dL 70-105 Serum or plasma calcium measurement (mass/volume) 8.6 mg/dL 8.5-10.1 Serum or plasma total bilirubin measurement (mass/volume) 0.4 mg/dL 0.1-1.0 Serum or plasma alkaline phosphatase measurement (enzymatic activity/volume) 62 U/L 40-136 Serum or plasma aspartate aminotransferase measurement (enzymatic activity/ volume) 10 U/L 5-34 Serum or plasma alanine aminotransferase measurement (enzymatic activity/volume ) 15 U/L 0-55 Serum or plasma protein measurement (mass/volume) 6.0 g/dL 6.4-8.2 Serum or plasma albumin measurement (mass/volume) 3.6 g/dL 3.2-4.5 Complete blood count (CBC) with automated white blood cell (WBC) differential - 05/16/17 13:10 Blood leukocytes automated count (number/volume) 12.6 10*3/uL 4.3-11.0 Blood erythrocytes automated count (number/volume) 5.10 10*6/uL 4.35-5.85 Venous blood hemoglobin measurement (mass/volume) 13.7 g/dL 11.5-16.0 Blood hematocrit (volume fraction) 43 % 35-52 Automated erythrocyte mean corpuscular volume 84 [foz_us] 80-99 Automated erythrocyte mean corpuscular hemoglobin (mass per erythrocyte) 27 pg 25-34 Automated erythrocyte mean corpuscular hemoglobin concentration measurement ( mass/volume) 32 g/dL 32-36 Automated erythrocyte distribution width ratio 16.0 % 10.0-14.5 Automated blood platelet count (count/volume) 409 10*3/uL 130-400 Automated blood platelet mean volume measurement 10.2 [foz_us] 7.4-10.4 Automated blood neutrophils/100 leukocytes 76 % 42-75 Automated blood lymphocytes/100 leukocytes 13 % 12-44 Blood monocytes/100 leukocytes 8 % 0-12 Automated blood eosinophils/100 leukocytes 2 % 0-10 Automated blood basophils/100 leukocytes 1 % 0-10 Blood neutrophils automated count (number/volume) 9.6 10*3 1.8-7.8 Blood lymphocytes automated count (number/volume) 1.7 10*3 1.0-4.0 Blood monocytes automated count (number/volume) 1.0 10*3 0.0-1.0 Automated eosinophil count 0.2 10*3/uL 0.0-0.3 Automated blood basophil count (count/volume) 0.1 10*3/uL 0.0-0.1 Complete urinalysis with reflex to culture - 05/16/17 13:10 Urine color determination YELLOW NRG Urine clarity determination CLEAR NRG Urine pH measurement by test strip 5 5-9 Specific gravity of urine by test strip 1.015 1.016- 1.022 Urine protein assay by test strip, semi-quantitative NEGATIVE NEGATIVE Urine glucose detection by automated test strip NEGATIVE NEGATIVE Erythrocytes detection in urine sediment by light microscopy NEGATIVE NEGATIVE Urine ketones detection by automated test strip NEGATIVE NEGATIVE Urine nitrite detection by test strip NEGATIVE NEGATIVE Urine total bilirubin detection by test strip NEGATIVE NEGATIVE Urine urobilinogen measurement by automated test strip (mass/volume) NORMAL NORMAL Urine leukocyte esterase detection by dipstick 1+ NEGATIVE Automated urine sediment erythrocyte count by microscopy (number/high power field) NONE NRG Automated urine sediment leukocyte count by microscopy (number/high power field ) [HPF] NRG Bacteria detection in urine sediment by light microscopy NEGATIVE NRG Squamous epithelial cells detection in urine sediment by light microscopy 5-10 NRG Crystals detection in urine sediment by light microscopy NONE NRG Casts detection in urine sediment by light microscopy NONE NRG Mucus detection in urine sediment by light microscopy NEGATIVE NRG Complete urinalysis with reflex to culture NO NRG Comprehensive metabolic panel - 05/16/17 13:10 Serum or plasma sodium measurement (moles/volume) 138 mmol/L 135-145 Serum or plasma potassium measurement (moles/volume) 4.3 mmol/L 3.6-5.0 Serum or plasma chloride measurement (moles/volume) 100 mmol/L 98-107 Carbon dioxide 28 mmol/L 21-32 Serum or plasma anion gap determination (moles/volume) 10 mmol/L 5-14 Serum or plasma urea nitrogen measurement (mass/volume) 12 mg/dL 7-18 Serum or plasma creatinine measurement (mass/volume) 0.72 mg/dL 0.60-1.30 Serum or plasma urea nitrogen/creatinine mass ratio 17 NRG Serum or plasma creatinine measurement with calculation of estimated glomerular filtration rate > NRG Serum or plasma glucose measurement (mass/volume) 170 mg/dL 70-105 Serum or plasma calcium measurement (mass/volume) 9.9 mg/dL 8.5-10.1 Serum or plasma total bilirubin measurement (mass/volume) 0.6 mg/dL 0.1-1.0 Serum or plasma alkaline phosphatase measurement (enzymatic activity/volume) 67 U/L 40-136 Serum or plasma aspartate aminotransferase measurement (enzymatic activity/ volume) 17 U/L 5-34 Serum or plasma alanine aminotransferase measurement (enzymatic activity/volume ) 21 U/L 0-55 Serum or plasma protein measurement (mass/volume) 6.7 g/dL 6.4-8.2 Serum or plasma albumin measurement (mass/volume) 4.1 g/dL 3.2-4.5 Lipase - 05/16/17 13:10 Lipase 11 U/L 8-78 Complete blood count (CBC) with automated white blood cell (WBC) differential - 06/01/17 01:55 Blood leukocytes automated count (number/volume) 11.2 10*3/uL 4.3-11.0 Blood erythrocytes automated count (number/volume) 4.91 10*6/uL 4.35-5.85 Venous blood hemoglobin measurement (mass/volume) 13.3 g/dL 11.5-16.0 Blood hematocrit (volume fraction) 41 % 35-52 Automated erythrocyte mean corpuscular volume 84 [foz_us] 80-99 Automated erythrocyte mean corpuscular hemoglobin (mass per erythrocyte) 27 pg 25-34 Automated erythrocyte mean corpuscular hemoglobin concentration measurement ( mass/volume) 32 g/dL 32-36 Automated erythrocyte distribution width ratio 15.7 % 10.0-14.5 Automated blood platelet count (count/volume) 376 10*3/uL 130-400 Automated blood platelet mean volume measurement 10.4 [foz_us] 7.4-10.4 Automated blood neutrophils/100 leukocytes 72 % 42-75 Automated blood lymphocytes/100 leukocytes 15 % 12-44 Blood monocytes/100 leukocytes 8 % 0-12 Automated blood eosinophils/100 leukocytes 5 % 0-10 Automated blood basophils/100 leukocytes 1 % 0-10 Blood neutrophils automated count (number/volume) 8.0 10*3 1.8-7.8 Blood lymphocytes automated count (number/volume) 1.7 10*3 1.0-4.0 Blood monocytes automated count (number/volume) 0.9 10*3 0.0-1.0 Automated eosinophil count 0.5 10*3/uL 0.0-0.3 Automated blood basophil count (count/volume) 0.1 10*3/uL 0.0-0.1 Comprehensive metabolic panel - 06/01/17 01:55 Serum or plasma sodium measurement (moles/volume) 140 mmol/L 135-145 Serum or plasma potassium measurement (moles/volume) 3.9 mmol/L 3.6-5.0 Serum or plasma chloride measurement (moles/volume) 103 mmol/L 98-107 Carbon dioxide 22 mmol/L 21-32 Serum or plasma anion gap determination (moles/volume) 15 mmol/L 5-14 Serum or plasma urea nitrogen measurement (mass/volume) 15 mg/dL 7-18 Serum or plasma creatinine measurement (mass/volume) 0.79 mg/dL 0.60-1.30 Serum or plasma urea nitrogen/creatinine mass ratio 19 NRG Serum or plasma creatinine measurement with calculation of estimated glomerular filtration rate > NRG Serum or plasma glucose measurement (mass/volume) 184 mg/dL 70-105 Serum or plasma calcium measurement (mass/volume) 9.3 mg/dL 8.5-10.1 Serum or plasma total bilirubin measurement (mass/volume) 0.4 mg/dL 0.1-1.0 Serum or plasma alkaline phosphatase measurement (enzymatic activity/volume) 66 U/L 40-136 Serum or plasma aspartate aminotransferase measurement (enzymatic activity/ volume) 11 U/L 5-34 Serum or plasma alanine aminotransferase measurement (enzymatic activity/volume ) 17 U/L 0-55 Serum or plasma protein measurement (mass/volume) 6.7 g/dL 6.4-8.2 Serum or plasma albumin measurement (mass/volume) 4.0 g/dL 3.2-4.5 Magnesium - 06/01/17 01:55 Magnesium 1.6 mg/dL 1.8-2.4 Serum or plasma troponin i.cardiac measurement (mass/volume) - 06/01/17 01:55 Serum or plasma troponin i.cardiac measurement (mass/volume) < ng/ mL <0.30 Serum or plasma C reactive protein measurement (mass/volume) - 06/01/17 01:55 Serum or plasma C reactive protein measurement (mass/volume) 0.40 mg /dL 0.00-0.50 Complete urinalysis with reflex to culture - 06/01/17 02:12 Urine color determination YELLOW NRG Urine clarity determination CLEAR NRG Urine pH measurement by test strip 5 5-9 Specific gravity of urine by test strip 1.010 1.016- 1.022 Urine protein assay by test strip, semi-quantitative NEGATIVE NEGATIVE Urine glucose detection by automated test strip NEGATIVE NEGATIVE Erythrocytes detection in urine sediment by light microscopy NEGATIVE NEGATIVE Urine ketones detection by automated test strip NEGATIVE NEGATIVE Urine nitrite detection by test strip NEGATIVE NEGATIVE Urine total bilirubin detection by test strip NEGATIVE NEGATIVE Urine urobilinogen measurement by automated test strip (mass/volume) NORMAL NORMAL Urine leukocyte esterase detection by dipstick NEGATIVE NEGATIVE Automated urine sediment erythrocyte count by microscopy (number/high power field) NONE NRG Automated urine sediment leukocyte count by microscopy (number/high power field ) NONE NRG Bacteria detection in urine sediment by light microscopy NEGATIVE NRG Squamous epithelial cells detection in urine sediment by light microscopy 2-5 NRG Crystals detection in urine sediment by light microscopy NONE NRG Casts detection in urine sediment by light microscopy NONE NRG Mucus detection in urine sediment by light microscopy NEGATIVE NRG Complete urinalysis with reflex to culture NO NRG Encounters ACCT No. Visit Date/Time Discharge Status Pt. Type Provider Facility Loc./Unit Complaint [id number] 06/01/2017 01:48:00 06/01/2017 04:28:00 DIS Emergency RACHAEL PIMENTEL MD [facility] ER ABD PAIN,NAUSEA, WEAKNESS [id number] 05/16/2017 12:33:00 05/16/2017 16:06:00 DIS Emergency CR CASON APRN [facility] ER ABD PAIN [id number] 10/18/2016 10:55:00 10/20/2016 11:45:00 DIS Inpatient JUAN FRANCISCO VEGA MD [facility] 4TH SHORTNESS OF BREATH [id number] 04/19/2016 12:57:00 04/19/2016 23:59:59 CLS Outpatient JULIAN MARTIN DO [facility] RAD DYSPNEA,ASTHMA,OBESITY [id number] 10/19/2015 11:01:00 10/21/2015 10:50:00 DIS Inpatient JUAN FRANCISCO VEGA MD [facility] CSD CHEST PAIN,ANXIETY, DYSPNEA [id number] 09/09/2015 15:45:00 09/10/2015 09:45:00 DIS Inpatient JUAN FRANCISCO VEGA MD [facility] ICU ATRIAL FIBRILLATION WITH RVR [id number] 01/22/2015 14:10:00 01/22/2015 23:59:59 CLS Outpatient JULIAN MARTIN DO [facility] RT DYSPNEA,BRONCHIAL ASTHMA [id number] 11/09/2014 12:30:00 11/09/2014 23:59:59 CLS Outpatient LEANNA DSOUZA MD [facility] CARD CAD CP HTN [id number] 12/09/2013 23:30:00 12/10/2013 01:24:00 DIS Emergency STACY INFANTE DO [facility] ER DIZZY;HEADACHE [id number] 10/17/2013 07:07:00 10/17/2013 16:00:00 DIS Outpatient LEANNA DSOUZA MD [facility] CATH CAD,ABN STRESS TEST, OBESITY,HLP,HTN [id number] 10/13/2013 08:07:00 10/13/2013 23:59:59 CLS Outpatient LEANNA DSOUZA MD [facility] RAD AFIB,CAD [id number] 09/09/2013 09:39:00 09/09/2013 23:59:59 CLS Outpatient LEANNA DSOUZA MD [facility] CARD AFIB,CAD [id number] 12/23/2012 00:52:00 12/23/2012 18:10:00 DIS Inpatient JUAN FRANCISCO VEGA MD [facility] ICU A FIB WITH RVR [id number] 11/09/2014 12:30:00 Document Registration [id number] 11/09/2014 12:30:00 Document Registration [id number] 11/09/2014 12:30:00 Document Registration [id number] 09/23/2012 13:05:00 Document Registration [id number] 06/23/2012 11:41:00 Document Registration [id number] 01/04/2012 00:00:00 Document Registration [id number] 11/24/2011 06:17:00 Document Registration [id number] 11/21/2011 09:45:00 Document Registration [id number] 10/17/2011 12:19:00 Document Registration [id number] 10/11/2011 08:43:00 Document Registration [id number] 10/09/2011 08:55:00 Document Registration [id number] 10/06/2011 11:26:00 Document Registration [id number] 09/30/2011 08:18:00 Document Registration [id number] 08/04/2011 13:20:00 Document Registration [id number] 06/05/2011 09:19:00 Document Registration [id number] 05/31/2010 10:25:00 Document Registration [id number] 05/05/2010 14:26:00 Document Registration [id number] 12/08/2009 13:31:00 Document Registration
[2017-09-12] MEDS ORDERED: DILTIAZEM IV FOR DRIP 125 MG in NS (IVPB) 100 ML IV SCH (15:15)
[2017-09-12] MEDS ORDERED: DILTIAZEM 25 MG/5 ML INJ (CARDIZEM) VIAL IVP ONE (15:15)
[2017-09-12 15:20] LABS: BASOPHILS # (AUTO) 0.1 10^3/uL (0.0-0.1); BASOPHILS % (AUTO) 1 % (0-10); EOSINOPHILS # (AUTO) 0.5 10^3/uL (0.0-0.3); EOSINOPHILS % (AUTO) 5 % (0-10); HEMATOCRIT 40 % (35-52); HEMOGLOBIN 12.9 G/DL (11.5-16.0); LYMPHOCYTES # (AUTO) 1.7 X 10^3 (1.0-4.0); LYMPHOCYTES % (AUTO) 19 % (12-44); MEAN CORPUSCULAR HEMOGLOBIN 27 PG (25-34); MEAN CORPUSCULAR HGB CONC 32 G/DL (32-36); MEAN CORPUSCULAR VOLUME 85 FL (80-99); MEAN PLATELET VOLUME 10.4 FL (7.4-10.4); MONOCYTES # (AUTO) 0.6 X 10^3 (0.0-1.0); MONOCYTES % (AUTO) 7 % (0-12); NEUTROPHILS % (AUTO) 68 % (42-75); PLATELET COUNT 353 10^3/uL (130-400); RED BLOOD COUNT 4.75 10^6/uL (4.35-5.85); RED CELL DISTRIBUTION WIDTH 15.5 % (10.0-14.5); WHITE BLOOD COUNT 8.8 10^3/uL (4.3-11.0)
[2017-09-12 15:31] LABS: INR 1.4 (0.8-1.4); PROTHROMBIN TIME PATIENT 17.4 SEC (12.2-14.7)
[2017-09-12 15:39] LABS: ALANINE AMINOTRANSFERASE 20 U/L (0-55); ALBUMIN 4.2 GM/DL (3.2-4.5); ALKALINE PHOSPHATASE 70 U/L (40-136); BILIRUBIN,TOTAL 0.4 MG/DL (0.1-1.0); BUN/CREATININE RATIO 19; CALCIUM 9.2 MG/DL (8.5-10.1); CARBON DIOXIDE 26 MMOL/L (21-32); CHLORIDE 104 MMOL/L (98-107); CREATININE SERUM 0.73 MG/DL (0.60-1.30); GFR ESTIMATED > 60; GLUCOSE 185 MG/DL (70-105); MAGNESIUM 1.6 MG/DL (1.8-2.4); POTASSIUM 3.8 MMOL/L (3.6-5.0); SODIUM 141 MMOL/L (135-145); TOTAL PROTEIN 6.7 GM/DL (6.4-8.2)
--- NOTE | 2017-09-12 15:39 | ED Cardiac General ---
History of Present Illness General Chief Complaint: Cardiac/General Problems Stated Complaint: A-FIB Nursing Triage Note: Patient advises she began experiencing a headache,nausea and a rapid heart rate. Pt. advises that she has a hx. of afib. Source: patient Exam Limitations: no limitations History of Present Illness Date Seen by Provider: Sep 12, 2017 Time Seen by Provider: 15:36 Initial Comments To ER per private vehicle from home with reports of headache, nausea, rapid heart rate, chest tightness. History of atrial fibrillation, is on Xarelto and Digoxin (however office notes from Dr Gandhi office indicate that shes on Eliquis). The symptoms began this morning. Orthodontic Lab Technician is Dr. Aguilar. History of one coronary stent 7 years ago. Timing/Duration: 4-6 hours, constant Severity: moderate Location: central [facility] SHAKE OUT WORKER: No ASA po SHAKE OUT WORKER: No Associated Systoms: Nausea/Vomiting Allergies and Home Medications Allergies Coded Allergies: azithromycin (Verified Allergy, Unknown, 06/23/12) cephalexin (Verified Allergy, Unknown, 04/23/06) levofloxacin (Verified Allergy, Unknown, 06/23/12) meloxicam (Verified Allergy, Unknown, 06/23/12) metoprolol (Verified Allergy, Unknown, NECK SPASMS, 10/18/16) metronidazole (Verified Allergy, Unknown, 06/23/12) morphine (Verified Allergy, Unknown, 04/23/06) theophylline (Verified Allergy, Unknown, 04/23/06) prednisone (Verified Adverse Reaction, Intermediate, STOMACH BLEED, ) norfloxacin (Verified Adverse Reaction, Unknown, GI INTOLERANCE, 09/11/07) trovafloxacin (Verified Adverse Reaction, Unknown, GI INTOLERANCE, 09/11/07) Home Medications Albuterol Sulfate 2.5 Mg/3 Ml Vial.neb, 2.5 MG NEB QID PRN for SHORTNESS OF BREATH, (Reported) Albuterol Sulfate 1 Puff Puff, 2 PUFF INH Q4H PRN for SHORTNESS OF BREATH, ( Reported) Alprazolam 0.25 Mg Tablet, 0.25 MG PO TID Prescribed by: JUAN FRANCISCO ELAINE on 10/20/16 1017 Amoxicillin/Potassium Clav 1 Each Tablet, 1 EACH PO BID Prescribed by: RACHAEL PIMENTEL on 06/01/17 0423 Budesonide/Formoterol Fumarate 10.2 Gm Hfa.aer.ad, 2 PUFF IH BID, (Reported) EITHER USES BREO OR SYMBICROT, DOES NOT USE THEM TOGETHER Clopidogrel Bisulfate 75 Mg Tablet, 75 MG PO DAILY, (Reported) Cyclobenzaprine HCl 5 Mg Tablet, 5 MG PO TID PRN for PAIN-MODERATE Prescribed by: CR CASON on 05/16/17 1600 Digoxin 250 Mcg Tablet, 250 MCG PO HS, (Reported) Fluticasone/Vilanterol 1 Each Blst.w.dev, 1 PUFF INH DAILY, (Reported) USES EITHER BREO OR SYMBICORT, DOES NOT USE THEM TOGETHER Glipizide 5 Mg Tablet, 2.5 MG PO BID, (Reported) TAKES 1/2 OF A (5 MG) TABLET Hyoscyamine Sulfate 0.125 Mg Tablet, 0.125 MG PO Q6H Prescribed by: PATRICIA KELLY on 10/20/16 1112 Levothyroxine Sodium 88 Mcg Tablet, 88 MCG PO DAILY, (Reported) Montelukast Sodium 10 Mg Tablet, 10 MG PO HS PRN for ALLERGIES/ASTHMA, (Reported ) Multivitamin 1 Each Tablet, 1 TAB PO DAILY, (Reported) [place] 3 Polyunsat Fatty Acids 1,000 Mg Cap, 2,000 MG PO DAILY, (Reported) TAKES 2 (1,000MG) CAPSULES Pantoprazole Sodium 40 Mg Tablet.dr, 40 MG PO DAILY Prescribed by: JUAN FRANCISCO ELAINE on 10/20/16 1017 Sitagliptin Phos/Metformin HCl 1 Each Tbmp.24hr, 1 TAB PO DAILY, (Reported) Sucralfate 1 Gm Tablet, 1 GM PO ACHS TAKE A SLURRY - ALLOW MEDICATION TO DISSOLVE IN 10ML OF WATER PRIOR TO TAKING Prescribed by: JUAN FRANCISCO ELAINE on 10/20/16 1017 [Liq Vit B Comp] , 1 APPFUL PO DAILY, (Reported) Patient Home Medication List Home Medication List Reviewed: Yes Review of Systems Constitutional: see HPI EENTM: No Symptoms Reported Respiratory: No Symptoms Reported Cardiovascular: See HPI, Chest Pain, Irregular Heart Rate, Palpitations Gastrointestinal: No Symptoms Reported Genitourinary: No Symptoms Reported Musculoskeletal: no symptoms reported Skin: no symptoms reported Psychiatric/Neurological: No Symptoms Reported Endocrine: No Symptoms Reported Hematologic/Lymphatic: No Symptoms Reported Past [id number]-Btktwq-Tqibdz Hx Patient Social History Alcohol Use: Denies Use Recreational Drug Use: No Smoking Status: Never a Smoker 2nd Hand Smoke Exposure: No Recent Foreign Travel: No Contact w/Someone Who Travel: No Recent Infectious Disease Expo: No Recent Hopitalizations: No Physical Abuse: No Sexual Abuse: No Immunizations Up To Date Tetanus Booster (TDap): Unknown Date of Pneumonia Vaccine: Mar 14, 2011 Date of Influenza Vaccine: Mar 09, 2015 Seasonal Allergies Seasonal Allergies: Yes Surgeries History of Surgeries: Yes (R Thyroidectomy, Carpal Tunnel, heart stent) Surgeries: Coronary Stent, Orthopedic, Thyroidectomy Respiratory History of Respiratory Disorde: Yes (asthma) Respiratory Disorders: Asthma, Pulmonary Embolism, COPD Currently Using CPAP: No Currently Using BIPAP: No Cardiovascular History of Cardiac Disorders: Yes (stents x 3, implanted heart monitor) Cardiac Disorders: Coronary Artery Disease, Deep Vein Thrombosis, High Cholesterol, Hypertension Neurological History of Neurological Disord: No Reproductive System Hx Reproductive Disorders: No Sexually Transmitted Disease: No HIV/AIDS: No Female Reproductive Disorders: Denies Genitourinary History of Genitourinary Disor: No Gastrointestinal History of Gastrointestinal Di: Yes (stomach bleeds) Gastrointestinal Disorders: Gastroesophageal Reflux, Gastrointestinal Bleed, Chronic Diarrhea, Gall Bladder Disease Musculoskeletal History of Musculoskeletal Dis: Yes Musculoskeletal Disorders: Arthritis, Rheumatoid Arthritis Endocrine History of Endocrine Disorders: Yes (right thyroidectomy) Endocrine Disorders: Diabetes, Non-Insulin dep HEENT HEENT Disorders: Cataract Loss of Vision: Denies Hearing Impairment: Denies Cancer History of Cancer: No Psychosocial History of Psychiatric Problem: No Suicide Risk Score: 0 Integumentary History of Skin or Integumenta: No Blood Transfusions History of Blood Disorders: Yes Adverse Reaction to a Blood Tr: No Family Medical History Significant Family History: Heart Disease, Hypertension Family Medial History: Patient reports no known family medical history. Physical Exam Vital Signs Vital Signs - First Documented 09/12/17 09/12/17 14:59 15:13 Pulse 125 Resp 14 B/P (MAP) 185/95 (125) Pulse Ox 98 O2 Delivery Room Air O2 Flow Rate 2.00 FiO2 100 Capillary Refill : Less Than 3 Seconds General Appearance: No Apparent Distress, WD/WN, Anxious, Other (on arrival to ER blood pressure 185/95, heart rate 135-158 irregular) Respiratory: Normal Breath Sounds, No Accessory Muscle Use, No Respiratory Distress Cardiovascular: Normal Peripheral Pulses, Irregularly Irregular, Tachycardia Gastrointestinal: Normal Bowel Sounds, Non Tender, Soft Extremity: Normal Capillary Refill, Normal Inspection, Other (Trace bilateral lower extremity pittting edema. ) Neurologic/Psychiatric: Alert, Oriented x3, No Motor/Sensory Deficits Skin: Normal Color, Warm/Dry Progress/Results/Core Measures Results/Orders Lab Results Laboratory Tests Test 09/12/17 15:09 09/12/17 16:40 Range/Units White Blood Count 8.8 4.3-11.0 10^3/uL Red Blood Count 4.75 4.35-5.85 10^6/uL Hemoglobin 12.9 11.5-16.0 G/DL Hematocrit 40 35-52 % Mean Corpuscular Volume 85 80-99 FL Mean Corpuscular Hemoglobin 27 25-34 PG Mean Corpuscular Hemoglobin Concent 32 32-36 G/DL Red Cell Distribution Width 15.5 H 10.0-14.5 % Platelet Count 353 130-400 10^3/uL Mean Platelet Volume 10.4 7.4-10.4 FL Neutrophils (%) (Auto) 68 42-75 % Lymphocytes (%) (Auto) 19 12-44 % Monocytes (%) (Auto) 7 0-12 % Eosinophils (%) (Auto) 5 0-10 % Basophils (%) (Auto) 1 0-10 % Neutrophils # (Auto) 6.0 1.8-7.8 X 10^3 Lymphocytes # (Auto) 1.7 1.0-4.0 X 10^3 Monocytes # (Auto) 0.6 0.0-1.0 X 10^3 Eosinophils # (Auto) 0.5 H 0.0-0.3 10^3/uL Basophils # (Auto) 0.1 0.0-0.1 10^3/uL Prothrombin Time 17.4 H 12.2-14.7 SEC INR Comment 1.4 0.8-1.4 Activated Partial Thromboplast Time 30 24-35 SEC Sodium Level 141 135-145 MMOL/L Potassium Level 3.8 3.6-5.0 MMOL/L Chloride Level 104 98-107 MMOL/L Carbon Dioxide Level 26 21-32 MMOL/L Anion Gap 11 5-14 MMOL/L Blood Urea Nitrogen 14 7-18 MG/DL Creatinine 0.73 0.60-1.30 MG/DL Estimat Glomerular Filtration Rate > 60 BUN/Creatinine Ratio 19 Glucose Level 185 H 70-105 MG/DL Calcium Level 9.2 8.5-10.1 MG/DL Magnesium Level 1.6 L 1.8-2.4 MG/DL Total Bilirubin 0.4 0.1-1.0 MG/DL Aspartate Amino Transf (AST/SGOT) 15 5-34 U/L Alanine Aminotransferase (ALT/SGPT) 20 0-55 U/L Alkaline Phosphatase 70 40-136 U/L Myoglobin 41.1 10.0-92.0 NG/ML Troponin I < 0.30 <0.30 NG/ML B-Type Natriuretic Peptide 97.8 <100.0 PG/ML Total Protein 6.7 6.4-8.2 GM/DL Albumin 4.2 3.2-4.5 GM/DL Digoxin Level 3.07 *H 0.80-2.00 NG/ML Urine Color YELLOW Urine Clarity CLEAR Urine pH 7 5-9 Urine Specific [place] 1.005 L 1.016-1.022 Urine Protein NEGATIVE NEGATIVE Urine Glucose (UA) NEGATIVE NEGATIVE Urine Ketones NEGATIVE NEGATIVE Urine Nitrite NEGATIVE NEGATIVE Urine Bilirubin NEGATIVE NEGATIVE Urine Urobilinogen NORMAL NORMAL MG/DL Urine Leukocyte Esterase NEGATIVE NEGATIVE Urine RBC (Auto) NEGATIVE NEGATIVE Urine RBC NONE /HPF Urine WBC RARE /HPF Urine Squamous Epithelial Cells 0-2 /HPF Urine Crystals NONE /LPF Urine Bacteria NEGATIVE /HPF Urine Casts NONE /LPF Urine Mucus NEGATIVE /LPF Urine Culture Indicated NO My Orders Orders - CR CASON APRN Cbc With Automated Diff (09/12/17 14:58) Magnesium (09/12/17 14:58) Chest 1 View, Ap/Pa Only (09/12/17 14:58) Ekg Tracing (09/12/17 14:58) Cardiac Profile 1 (09/12/17 14:58) Comprehensive Metabolic Panel (09/12/17 14:58) Myoglobin Serum (09/12/17 14:58) Protime With Inr (09/12/17 14:58) Partial Thromboplastin Time (09/12/17 14:58) O2 (09/12/17 14:58) Monitor-Rhythm Ecg Trace Only (09/12/17 14:58) Lipid Panel (09/13/17 06:00) Aspirin Chewable Tablet (Baby Aspirin Ch (09/12/17 15:00) Saline Lock/Iv-Start (09/12/17 14:58) Diltiazem Injection (Cardizem Injection) (09/12/17 15:15) Ns (Ivpb) (Sodium C... W/Diltiazem Iv Fo (09/12/17 15:15) Digoxin (09/12/17 15:31) Magnesium 1 Gm/100 Ml Ivpb (Magnesium Stevens (09/12/17 15:45) BNP (09/12/17 15:44) Ua Culture If Indicated (09/12/17 15:48) Ns Iv 500 Ml (Sodium Chloride 0.9%) (09/12/17 16:00) Lorazepam Injection (Ativan Injection) (09/12/17 16:45) Medications Given in ED Current Medications Medications Dose Ordered Sig/Mary Route Start Time Stop Time Status Last Admin Dose Admin Aspirin 324 mg ONCE ONCE PO 09/12/17 15:00 09/12/17 15:01 DC 09/12/17 15:24 324 MG Diltiazem HCl 10 mg ONCE ONCE IVP 09/12/17 15:15 09/12/17 15:16 DC 09/12/17 15:25 10 MG Lorazepam 0.5 mg ONCE ONCE IVP 09/12/17 16:45 09/12/17 16:46 DC 09/12/17 16:47 0.5 MG Vital Signs/I&O Vital Sign - Last 12Hours 09/12/17 09/12/17 09/12/17 14:59 15:13 15:25 Pulse 125 132 Resp 14 18 B/P (MAP) 185/95 (125) 185/95 Pulse Ox 98 98 99 O2 Delivery Room Air Nasal Cannula Nasal Cannula O2 Flow Rate 2.00 2.00 FiO2 100 Blood Pressure Mean: 125 ECG Initial ECG Impression Date: Sep 12, 2017 Initial ECG Impression Time: 15:38 Initial ECG Rate: 137 Initial ECG Rhythm: A Fib/Flutter Initial ECG Impression: Atrial Fibrillation w/RVR Comment Initial EKG shows some ST depression in leads V2 V3, no ST elevation. Diagnostic Imaging Diagonstic Imaging: Xray Plain Films/CT/US/NM/MRI: chest Comments NAME: BLACK JJ MED REC#: [id number] PT STATUS: REG ER : 1940 PHYSICIAN: CR CASON APRN ADMIT DATE: 09/12/17/ER Draft Date of Exam:09/12/17 CHEST 1 VIEW, AP/PA ONLY Patient History: A. Fib. Technique: Single frontal view of the chest Comparison: 06/01/2017 FINDINGS: The lung volumes are normal. No focal consolidation is seen. No large pleural effusion or pneumothorax is seen. The cardiomediastinal silhouette is normal in size and contour. No acute osseous abnormality is seen. Monitoring device overlies the heart. IMPRESSION: No acute pulmonary abnormality seen. Dictated on workstation # [id number] Dict: 09/12/17 1535 Trans: 09/12/17 1537 CVB [id number] Interpreted by: CURRY HERRON MD Electronically signed by: Departure Communication (Admissions) Time/Spoke to Admitting Phy: 16:52 Communication Discussed the case with Dr. Elaine. We'll admit the patient here, consult cardiology. Time/Spoke to Consulting Phy: 16:53 Communication/Consulting Discussed with Dr aguilar, will admit Progress Notes 1744- there is a staffing issue upstairs So the patient is still with us in the emergency room. At this time her Cardizem drip to 20 mg per hour, heart rate is 89 atrial fibrillation, blood pressure 111/87. 1918- about 5 minutes heart rate has gone from atrial fibrillation rate of 70s to sinus rhythm bradycardic rate of 50. EKg will now be repeated, cardizem drip turned off. Impression Impression: Primary Impression: Atrial fibrillation with rapid ventricular response Disposition: ADMITTED INPATIENT Condition: Stable Admissions Decision to Admit Reason: Admit from ER (General) Decision to Admit/Date: Sep 12, 2017 Time/Decision to Admit Time: 18:00 Departure-Patient Inst. Referrals: JUAN FRANCISCO ELAINE MD (PCP/Family) Primary Care Physician CR CASON APRN Sep 12, 2017 15:39
[2017-09-12 15:51] LABS: MYOGLOBIN SERUM 41.1 NG/ML (10.0-92.0)
[2017-09-12] MEDS ORDERED: NS IV 500 ML 500 ML IV SCH (16:00)
[2017-09-12] MEDS: MAGNESIUM 1 GM/100 ML IVPB 100 ML IV SCH ×2 (16:30→17:22)
[2017-09-12] MEDS ORDERED: LORazepam INJ 2 MG/ML (ATIVAN) VIAL IVP ONE (16:45)
[2017-09-12 16:58] LABS: BACTERIA,URINE NEGATIVE /HPF; BILIRUBIN,URINE NEGATIVE (NEGATIVE); CLARITY,URINE CLEAR; COLOR,URINE YELLOW; GLUCOSE, URINE (UA) NEGATIVE (NEGATIVE); KETONES,URINE NEGATIVE (NEGATIVE); LEUKOCYTE ESTERASE ,URINE NEGATIVE (NEGATIVE); NITRITE,URINE NEGATIVE (NEGATIVE); PH,URINE 7 (5-9); PROTEIN,URINE NEGATIVE (NEGATIVE); SQUAMOUS EPITHELIAL CELL,UR 0-2 /HPF; UROBILINOGEN,URINE NORMAL (NORMAL); WBC,URINE RARE /HPF
--- NOTE | 2017-09-12 17:24 | History & Physicial ---
History of Present Illness History of Present Illness Reason for visit/HPI PT REPORTS RENARD SHE WAS FEELING GOOD THIS MORNING, AND THEN SHE WAS SITTING AT THE TABLE FILLING OUT BIRTHDAY CARDS WHEN SHE STARTED TO FEEL FATIGUED, DIZZY, AND HAD SOME MILD CHEST DISCOMFORT AND FELT LIKE HER HEART WAS RACING. SHE REPORTS THAT SHE GOT HER TO BRING HER TO THE EMERGENCY DEPARTMENT AND THE ER FOUND AFIB WITH RVR, STARTED HER ON A CARDIZEM DRIP AND SHE IS NOW FEELING A LITTLE BETTER. Date of Admission Sep 12, 2017 at 17:08 Date Seen by Provider: Sep 12, 2017 Time Seen by Provider: 17:24 I consulted on this patient on 09/12/17 17:23 Attending Physician Juan Francisco Elaine MD Admitting Physician Juan Francisco Elaine MD Consult LEANNA DSOUZA MD Allergies and Home Medications Allergies Coded Allergies: azithromycin (Verified Allergy, Unknown, 06/23/12) cephalexin (Verified Allergy, Unknown, 04/23/06) levofloxacin (Verified Allergy, Unknown, 06/23/12) meloxicam (Verified Allergy, Unknown, 06/23/12) metoprolol (Verified Allergy, Unknown, NECK SPASMS, 10/18/16) metronidazole (Verified Allergy, Unknown, 06/23/12) morphine (Verified Allergy, Unknown, 04/23/06) theophylline (Verified Allergy, Unknown, 04/23/06) prednisone (Verified Adverse Reaction, Intermediate, STOMACH BLEED, ) norfloxacin (Verified Adverse Reaction, Unknown, GI INTOLERANCE, 09/11/07) trovafloxacin (Verified Adverse Reaction, Unknown, GI INTOLERANCE, 09/11/07) Home Medications Albuterol Sulfate 2.5 Mg/3 Ml Vial.neb, 2.5 MG NEB QID PRN for SHORTNESS OF BREATH, (Reported) Albuterol Sulfate 1 Puff Puff, 2 PUFF INH Q4H PRN for SHORTNESS OF BREATH, ( Reported) Alprazolam 0.25 Mg Tablet, 0.25 MG PO TID Prescribed by: JUAN FRANCISCO ELAINE on 10/20/16 1017 Amoxicillin/Potassium Clav 1 Each Tablet, 1 EACH PO BID Prescribed by: RACHAEL PIMENTEL on 06/01/17 0423 Budesonide/Formoterol Fumarate 10.2 Gm Hfa.aer.ad, 2 PUFF IH BID, (Reported) EITHER USES BREO OR SYMBICROT, DOES NOT USE THEM TOGETHER Clopidogrel Bisulfate 75 Mg Tablet, 75 MG PO DAILY, (Reported) Cyclobenzaprine HCl 5 Mg Tablet, 5 MG PO TID PRN for PAIN-MODERATE Prescribed by: CR CASON on 05/16/17 1600 Digoxin 250 Mcg Tablet, 250 MCG PO HS, (Reported) Fluticasone/Vilanterol 1 Each Blst.w.dev, 1 PUFF INH DAILY, (Reported) USES EITHER BREO OR SYMBICORT, DOES NOT USE THEM TOGETHER Glipizide 5 Mg Tablet, 2.5 MG PO BID, (Reported) TAKES 1/2 OF A (5 MG) TABLET Hyoscyamine Sulfate 0.125 Mg Tablet, 0.125 MG PO Q6H Prescribed by: PATRICIA KELLY on 10/20/16 1112 Levothyroxine Sodium 88 Mcg Tablet, 88 MCG PO DAILY, (Reported) Montelukast Sodium 10 Mg Tablet, 10 MG PO HS PRN for ALLERGIES/ASTHMA, (Reported ) Multivitamin 1 Each Tablet, 1 TAB PO DAILY, (Reported) [place] 3 Polyunsat Fatty Acids 1,000 Mg Cap, 2,000 MG PO DAILY, (Reported) TAKES 2 (1,000MG) CAPSULES Pantoprazole Sodium 40 Mg Tablet.dr, 40 MG PO DAILY Prescribed by: JUAN FRANCISCO ELAINE on 10/20/16 1017 Sitagliptin Phos/Metformin HCl 1 Each Tbmp.24hr, 1 TAB PO DAILY, (Reported) Sucralfate 1 Gm Tablet, 1 GM PO ACHS TAKE A SLURRY - ALLOW MEDICATION TO DISSOLVE IN 10ML OF WATER PRIOR TO TAKING Prescribed by: JUAN FRANCISCO ELAINE on 10/20/16 1017 [Liq Vit B Comp] , 1 APPFUL PO DAILY, (Reported) Patient Home Medication List Home Medication List Reviewed: Yes Past Rylaomw-Hvuxna-Bmslye Hx Patient Social History Marrital Status: Living Status: LIVES WITH IN HOME [place] Employed/Student: retired Alcohol Use: Denies Use Recreational Drug Use: No Smoking Status: Never a Smoker 2nd Hand Smoke Exposure: No Physical Abuse Screen: No Sexual Abuse: No Recent Foreign Travel: No Contact w/other who traveled: No Recent Hopitalizations: No Recent Infectious Disease Expo: No Immunizations Up To Date Tetanus Booster (TDap): Unknown Date of Pneumonia Vaccine: Mar 14, 2011 Date of Influenza Vaccine: Mar 09, 2015 Seasonal Allergies Seasonal Allergies: Yes Surgeries Yes (R Thyroidectomy, Carpal Tunnel, heart stent) Coronary Stent, Orthopedic, Thyroidectomy Respiratory Yes (asthma) Asthma Currently Using CPAP: No Currently Using BIPAP: No Cardiovascular Yes (stents x 3, implanted heart monitor) Coronary Artery Disease, Deep Vein Thrombosis, High Cholesterol, Hypertension Neurological No Reproductive System : No Hx Reproductive Disorders: No Sexually Transmitted Disease: No HIV/AIDS: No Female Reproductive Disorders: Denies Genitourinary No Gastrointestinal Yes (stomach bleeds) Gastroesophageal Reflux, Gastrointestinal Bleed, Chronic Diarrhea, Gall Bladder Disease Musculoskeletal Yes Arthritis, Rheumatoid Arthritis Endocrine History of Endocrine Disorders: Yes (right thyroidectomy) Endocrine Disorders: Diabetes, Non-Insulin dep HEENT History of HEENT Disorders: Yes HEENT Disorders: Cataract Loss of Vision: Denies Hearing Impairment: Denies Cancer No Psychosocial History of Psychiatric Problem: Yes Behavioral Health Disorders: Anxiety Integumentary History of Skin or Integumenta: No Blood Transfusions History of Blood Disorders: Yes Adverse Reaction to a Blood Tr: No Reviewed Nursing Assessment Reviewed/Agree w Nursing PMH: Yes Family Medical History Significant Family History: Heart Disease, Hypertension Family Hx: Patient reports no known family medical history. Constitutional: No chills, No diaphoresis, dizziness, weakness EENTM: No blurred vision, No hoarseness, No throat pain Respiratory: No cough, No dyspnea on exertion, No short of breath Cardiovascular: chest pain, No edema, Hx of Intervention, palpitations Gastrointestinal: No abdominal pain, No constipation, No diarrhea, No nausea, No vomiting Genitourinary: no symptoms reported Musculoskeletal: No back pain, No muscle stiffness, No muscle weakness Skin: no symptoms reported Psychiatric/Neurological: Anxiety All Other Systems Reviewed Negative Unless Noted: Yes Physical Exam Vital Signs Vital Signs - First Documented 09/12/17 09/12/17 09/12/17 14:59 15:13 20:00 Temp 98.2 Pulse 125 Resp 14 B/P (MAP) 185/95 (125) Pulse Ox 98 O2 Delivery Room Air O2 Flow Rate 2.00 FiO2 100 Capillary Refill : Less Than 3 Seconds General Appearance: No Apparent Distress, WD/WN Eyes: Bilateral Eye Normal Inspection, Bilateral Eye PERRL, Bilateral Eye EOMI HEENT: PERRL/EOMI, Pharynx Normal Neck: Full Range of Motion, Supple Respiratory: Chest Non Tender, Lungs Clear, Normal Breath Sounds, No Accessory Muscle Use Cardiovascular: No Edema, Irregularly Irregular Gastrointestinal: Normal Bowel Sounds, Soft Rectal: Deferred Back: Normal Inspection Extremity: Normal Capillary Refill, Non Tender, No Calf Tenderness, No Pedal Edema Neurologic/Psychiatric: Alert, Oriented x3, No Motor/Sensory Deficits, Normal Mood/Affect Skin: Normal Color, Warm/Dry Lymphatic: No Adenopathy Assessment/Plan Assessment and Plan ATRIAL FIBRILLATION WITH RVR HYPERTENSION DIABETES MELLITUS ANXIETY DIGOXIN TOXICITY ATRIAL FIBRILLATION WITH RVR - CONTINUE WITH CARDIZEM DRIP, MONITOR BLOOD PRESSURE AND HEART RATE - DR. DSOUZA CONSULTED - HE WILL ADDRESS ANTICOAGULATION. HYPERTENSION - MONITOR PRESSURE - MEDICATION TO BE ADJUSTED BY CARDIOLOGY FOR HER AFIB AND WE WILL ADJUST HER ANTIHYPERTENSIVE MEDICATION NEEDED BASED ON HER RESPONSE TO THE RATE CONTROLLING MEDS. DIABETES MELLITUS - ONCE HOME MEDICATIONS ARE VERIFIED - THE PHYSICIAN COVERING FOR ME TOMORROW WILL RESTART HOME MEDICATIONS. ADA 45 GRAM CARB DIET ORDERED. ANXIETY - CHRONIC - MONITOR - WILL NEED HER XANAX RESUMED ONCE MEDS ARE VERIFIED. DIGOXIN TOXICITY - HOLD DIGOXIN, MONITOR SYMPTOMS UPON RESOLUTION FO HER DIGOXIN TOXICITY - WE WILL NEED TO DECREASE HER HOME DOSE IF CARDIOLOGY DECIDES TO RESUME THIS MEDICATION. DR. MENDEZ IS COVERING FOR ME ON 09/13/17 AND 09/14/17. IF PT REMAINS IN THE HOSPITAL UNTIL SUNDAY MORNING, I WILL SEE HER AT THAT TIME. Problems: Admission Diagnosis ATRIAL FIBRILLATION WITH RVR HYPERTENSION DIABETES MELLITUS ANXIETY DIGOXIN TOXICITY Admission Status: Inpatient Order (span 2 midnights) Reason for Inpatient Admission: PT HAS AFIB WITH RVR REQUIRING IV MEDICATION AND ADJUSTMENT OF ORAL MEDICATION, WHICH WILL REQUIRE MORE THAN 2 MIDNIGHTS FOR APPROPRIATE MONITORING AND RESOLUTION OF SYMPTOMS BEFORE PT CAN SAFELY BE DISCHARGED TO HOME ON ORAL MEDICATION. Clinical Quality Measures AMI/AHF: ASA po Prior to arrival: JUAN FRANCISCO Ledezma MD Sep 12, 2017 17:24
--- NOTE | 2017-09-12 17:57 | Consultation-Cardiology ---
HPI-Cardiology Cardiology Consultation Date of Consultation 09/12/17 Date of Admission Time Seen by Provider: 17:00 Indication: chest pain, atrial fibrillation HPI 77 years old lady with history of paroxysmal atrial fibrillation, was in her usual state of health until this afternoon when she became suddenly nauseous, felt her heart racing and irregular. Started having chest pain described as dull in nature in the retrosternal area she contacted my office and after interrogating her loop recorder it appear that she is in atrial flutter palpitation with rapid ventricular spine she was sent in the emergency room. Started on Cardizem drip, heart rate is better at this time, feeling better. she has not been feeling well for the past few days. Denied any fever or chills. No cough or phlegm. Home Medications & Allergies Allergies: Coded Allergies: azithromycin (Verified Allergy, Unknown, 06/23/12) cephalexin (Verified Allergy, Unknown, 04/23/06) levofloxacin (Verified Allergy, Unknown, 06/23/12) meloxicam (Verified Allergy, Unknown, 06/23/12) metoprolol (Verified Allergy, Unknown, NECK SPASMS, 10/18/16) metronidazole (Verified Allergy, Unknown, 06/23/12) morphine (Verified Allergy, Unknown, 04/23/06) theophylline (Verified Allergy, Unknown, 04/23/06) prednisone (Verified Adverse Reaction, Intermediate, STOMACH BLEED, ) norfloxacin (Verified Adverse Reaction, Unknown, GI INTOLERANCE, 09/11/07) trovafloxacin (Verified Adverse Reaction, Unknown, GI INTOLERANCE, 09/11/07) Home Medication List Reviewed: Yes DEJ-Xniium-Dkecaz Hx Patient Social History Marital Status: Employed/Student: retired Alcohol Use: Denies Use Recreational Drug Use: No Smoking Status: Never a Smoker 2nd Hand Smoke Exposure: No Recent Foreign Travel: No Recent Infectious Disease Expo: No Recent Hopitalizations: No Immunizations Up To Date Tetanus Booster (TDap): Unknown Date of Pneumonia Vaccine: Mar 14, 2011 Date of Influenza Vaccine: Mar 09, 2015 Past Medical History Past medical history as discussed below Family Medical History Significant Family History: Heart Disease, Hypertension Family Medical Hx Noncontributory to her current condition Family History: Patient reports no known family medical history. Constitutional: see HPI, malaise, weakness EENTM: see HPI, no symptoms reported Respiratory: see HPI, No cough, dyspnea on exertion, No hemoptysis, No orthopnea, No phlegm, No short of breath, No stridor, No wheezing, No other Cardiovascular: no symptoms reported, see HPI, chest pain, No edema, No Hx of Intervention, No palpitations, No syncope, No vascular heart diseas, No other Gastrointestinal: no symptoms reported, see HPI, nausea Genitourinary: no symptoms reported, see HPI Musculoskeletal: no symptoms reported, see HPI Skin: no symptoms reported, see HPI Psychiatric/Neurological: No Symptoms Reported, See HPI Reviewed Test Results Reviewed Test Results Lab Laboratory Tests Test 09/12/17 15:09 09/12/17 16:40 Range/Units White Blood Count 8.8 4.3-11.0 10^3/uL Red Blood Count 4.75 4.35-5.85 10^6/uL Hemoglobin 12.9 11.5-16.0 G/DL Hematocrit 40 35-52 % Mean Corpuscular Volume 85 80-99 FL Mean Corpuscular Hemoglobin 27 25-34 PG Mean Corpuscular Hemoglobin Concent 32 32-36 G/DL Red Cell Distribution Width 15.5 H 10.0-14.5 % Platelet Count 353 130-400 10^3/uL Mean Platelet Volume 10.4 7.4-10.4 FL Neutrophils (%) (Auto) 68 42-75 % Lymphocytes (%) (Auto) 19 12-44 % Monocytes (%) (Auto) 7 0-12 % Eosinophils (%) (Auto) 5 0-10 % Basophils (%) (Auto) 1 0-10 % Neutrophils # (Auto) 6.0 1.8-7.8 X 10^3 Lymphocytes # (Auto) 1.7 1.0-4.0 X 10^3 Monocytes # (Auto) 0.6 0.0-1.0 X 10^3 Eosinophils # (Auto) 0.5 H 0.0-0.3 10^3/uL Basophils # (Auto) 0.1 0.0-0.1 10^3/uL Prothrombin Time 17.4 H 12.2-14.7 SEC INR Comment 1.4 0.8-1.4 Activated Partial Thromboplast Time 30 24-35 SEC Sodium Level 141 135-145 MMOL/L Potassium Level 3.8 3.6-5.0 MMOL/L Chloride Level 104 98-107 MMOL/L Carbon Dioxide Level 26 21-32 MMOL/L Anion Gap 11 5-14 MMOL/L Blood Urea Nitrogen 14 7-18 MG/DL Creatinine 0.73 0.60-1.30 MG/DL Estimat Glomerular Filtration Rate > 60 BUN/Creatinine Ratio 19 Glucose Level 185 H 70-105 MG/DL Calcium Level 9.2 8.5-10.1 MG/DL Magnesium Level 1.6 L 1.8-2.4 MG/DL Total Bilirubin 0.4 0.1-1.0 MG/DL Aspartate Amino Transf (AST/SGOT) 15 5-34 U/L Alanine Aminotransferase (ALT/SGPT) 20 0-55 U/L Alkaline Phosphatase 70 40-136 U/L Myoglobin 41.1 10.0-92.0 NG/ML Troponin I < 0.30 <0.30 NG/ML B-Type Natriuretic Peptide 97.8 <100.0 PG/ML Total Protein 6.7 6.4-8.2 GM/DL Albumin 4.2 3.2-4.5 GM/DL Digoxin Level 3.07 *H 0.80-2.00 NG/ML Urine Color YELLOW Urine Clarity CLEAR Urine pH 7 5-9 Urine Specific [place] 1.005 L 1.016-1.022 Urine Protein NEGATIVE NEGATIVE Urine Glucose (UA) NEGATIVE NEGATIVE Urine Ketones NEGATIVE NEGATIVE Urine Nitrite NEGATIVE NEGATIVE Urine Bilirubin NEGATIVE NEGATIVE Urine Urobilinogen NORMAL NORMAL MG/DL Urine Leukocyte Esterase NEGATIVE NEGATIVE Urine RBC (Auto) NEGATIVE NEGATIVE Urine RBC NONE /HPF Urine WBC RARE /HPF Urine Squamous Epithelial Cells 0-2 /HPF Urine Crystals NONE /LPF Urine Bacteria NEGATIVE /HPF Urine Casts NONE /LPF Urine Mucus NEGATIVE /LPF Urine Culture Indicated NO Physical Exam Vital Signs Vital Signs - First Documented 09/12/17 09/12/17 14:59 15:13 Pulse 125 Resp 14 B/P (MAP) 185/95 (125) Pulse Ox 98 O2 Delivery Room Air O2 Flow Rate 2.00 FiO2 100 Capillary Refill : Less Than 3 Seconds General Appearance: No Apparent Distress, WD/WN Eyes: Bilateral Eye Normal Inspection, Bilateral Eye PERRL, Bilateral Eye EOMI HEENT: PERRL/EOMI, TMs Normal, Normal ENT Inspection, Pharynx Normal Neck: Full Range of Motion, Normal Inspection, Non Tender, Supple, Carotid Bruit Respiratory: Chest Non Tender, Lungs Clear, Normal Breath Sounds, No Accessory Muscle Use, No Respiratory Distress Cardiovascular: No Edema, No Gallop, No JVD, No Murmur, Normal Peripheral Pulses, Irregularly Irregular Gastrointestinal: Normal Bowel Sounds, No Organomegaly, No Pulsatile Mass, Non Tender, Soft Back: Normal Inspection, No CVA Tenderness, No Vertebral Tenderness Extremity: Normal Capillary Refill, Normal Inspection, Normal Range of Motion, Non Tender, No Calf Tenderness, No Pedal Edema Neurologic/Psychiatric: Alert, Oriented x3, No Motor/Sensory Deficits, Normal Mood/Affect Skin: Normal Color, Warm/Dry Lymphatic: No Adenopathy A/P-Cardiology Admission Diagnosis Chest pain nonspecific etiology Paroxysmal atrial fibrillation Tachycardia Coronary artery disease Hypertension Assessment/Plan CP, nonspecific etiology, probably secondary to tachycardia, currently feeling better. Continue to monitor, monitor cardiac enzymes and EKG. Paroxysmal atrial fibrillation, tachycardia. Patient was started on Cardizem drip, continue to monitor heart rate and blood pressure. [id number] score of 6, yearly risk of stroke without oral anticoagulation is 9.8 percent, patient has been taking oral anticoagulation on and off, was last on Xarelto. I will restart the medication and continue to monitor History of Reveal linq implantation done on September 10, 2015. Has been monitored. Continue to monitor at this time. Coronary artery disease, history of stent using 3.5x15 mm resolute drug-eluting stent to the LAD expanded to 3.86 mm with excellent results. Most recent cardiac catheterization October 2013 revealed patent stent to the LAD with otherwise moderate disease in the distal LAD. Very small artery distally. Otherwise, no significant obstructive disease. Last stress test was done in 2015 and it was negative. Continue to monitor Hypertension, blood pressure was elevated on admission. Currently better controlled on Cardizem Hyperlipidemia, restart statin, monitor lipids Mild bilateral carotid stenosis, continue to monitor History of GI bleed, intolerance to aggressive oral anticoagulations in the past. Continue to monitor Hypothyroidism, Monitored and managed by primary care physician Diabetes mellitus, managed and followed by primary care physician. Clinical Quality Measures AMI/AHF: ASA po Prior to arrival: No DVT/VTE Risk/Contraindication: Contraindications-Pharm: Other *list below* Other: the pt is on oral anticoag LEANNA DSOUZA MD Sep 12, 2017 17:57
[2017-09-12] MEDS ORDERED: PANTOPRAZOLE 40 MG (PROTONIX) TAB PO NR (18:00)
[2017-09-12] MEDS ORDERED: RIVAROXABAN 20 MG TABLET (XARELTO) PO NR (18:00)
[2017-09-12] MEDS ORDERED: CATHETER FLUSH 10 ML SYR IV PRN (20:30)
[2017-09-12] MEDS: NS IV 1000 ML 1,000 ML IV SCH (20:35)
[2017-09-13] VITALS (10 sets, daily range): BP systolic 124–161; BP diastolic 56–74
[2017-09-13 04:05] LABS: HEMOGLOBIN 11.6 G/DL (11.5-16.0); MEAN PLATELET VOLUME 10.5 FL (7.4-10.4); RED BLOOD COUNT 4.25 10^6/uL (4.35-5.85); RED CELL DISTRIBUTION WIDTH 15.5 % (10.0-14.5); WHITE BLOOD COUNT 7.7 10^3/uL (4.3-11.0)
[2017-09-13 04:33] LABS: ALANINE AMINOTRANSFERASE 14 U/L (0-55); ALBUMIN 3.5 GM/DL (3.2-4.5); ALKALINE PHOSPHATASE 51 U/L (40-136); BILIRUBIN,TOTAL 0.6 MG/DL (0.1-1.0); BUN/CREATININE RATIO 20; CALCIUM 8.3 MG/DL (8.5-10.1); CARBON DIOXIDE 26 MMOL/L (21-32); CHLORIDE 108 MMOL/L (98-107); CHOLESTEROL 160 MG/DL (< 200); CREATININE SERUM 0.59 MG/DL (0.60-1.30); GFR ESTIMATED > 60; GLUCOSE 122 MG/DL (70-105); HDL CHOLESTEROL 34 MG/DL (40-60); POTASSIUM 3.8 MMOL/L (3.6-5.0); SODIUM 142 MMOL/L (135-145); TOTAL PROTEIN 5.5 GM/DL (6.4-8.2); TRIGLYCERIDES 80 MG/DL (<150); VLDL CHOLESTEROL 16 MG/DL (5-40)
[2017-09-13 04:52] LABS: DIGOXIN 0.81 NG/ML (0.80-2.00)
[2017-09-13] MEDS ORDERED: MAGNESIUM 1 GM/100 ML IVPB 100 ML IV SCH (06:00)
[2017-09-13] MEDS ORDERED: POTASSIUM CL 10MEQ/50ML IVPB 50 ML IV SCH (06:00)
[2017-09-13] MEDS ORDERED: KCL 20 MEQ TAB (K-DUR) PO SCH (06:00)
[2017-09-13] MEDS: NS IV 1000 ML 1,000 ML IV SCH (06:13)
[2017-09-13] MEDS ORDERED: PANTOPRAZOLE 40 MG (PROTONIX) TAB PO SCH (07:00)
--- NOTE | 2017-09-13 07:24 | Cardiology Progress Note ---
Subjective Date Seen by Provider: Sep 13, 2017 Time Seen by Provider: 07:21 Subjective/Events-last exam Patient is laying down in bed, feeling that her, converted back to sinus rhythm , doing well. Review of Systems General: No Chills, No Night Sweats, No Fatigue, No Malaise, No Appetite, No Other HEENT: No Head Aches, No Visual Changes, No Eye Pain, No Ear Pain, No Dysphasia , No Sinus Congestion, No Post Nasal Drip, No Sore Throat, No Other Pulmonary: No Dyspnea, No Cough, No Pleuritic Chest Pain, No Other Cardiovascular: No: Chest Pain, Palpitations, Orthopnea, Paroxysmal Noc. Dyspnea, Edema, Lt Headedness, Other Objective-Cardiology Exam Last Set of Vital Signs Vital Signs 09/12/17 09/12/17 09/13/17 09/13/17 09/13/17 15:13 19:46 04:00 05:00 06:00 Temp 97.5 Pulse 57 Resp 13 B/P (MAP) 153/74 (100) Pulse Ox 94 O2 Delivery Room Air O2 Flow Rate 2.00 FiO2 100 Capillary Refill : Less Than 3 Seconds I&O Intake and Output 09/13/17 00:00 Output Total 0 ml Balance 0 ml Output Urine Total 0 ml Daily Weight Change No General: Alert, Oriented X3, Cooperative HEENT: Atraumatic, PERRLA Neck: Supple, No JVD, No Thyromegaly Lungs: Clear to Auscultation, Normal Air Movement Heart: Regular Rate, Normal S1, Normal S2, No Murmurs Abdomen: Normal Bowel Sounds, Soft, No Tenderness, No Hepatosplenomegaly, No Masses Extremities: No Clubbing, No Cyanosis, No Edema, Normal Pulses, No Tenderness/ Swelling Skin: No Rashes, No Breakdown, No Significant Lesion Neuro: Normal Gait, Normal Speech, Strength at 5/5 X4 Ext, Normal Tone, Sensation Intact Psych/Mental Status: Mental Status NL, Mood NL Results Lab Laboratory Tests 09/12/17 15:09 09/13/17 03:25 A/P-Cardiology Admission Diagnosis Chest pain nonspecific etiology Paroxysmal atrial fibrillation Tachycardia Coronary artery disease Hypertension Assessment/Plan CP, nonspecific etiology, probably secondary to tachycardia, currently feeling better. Cardiac enzymes and EKG did not show any acute changes, came for discharge and follow-up as an outpatient Paroxysmal atrial fibrillation, back to sinus rhythm. Okay for discharge. [id number] score of 6, yearly risk of stroke without oral anticoagulation is 9.8 percent, patient has been taking oral anticoagulation on and off, was last on Xarelto. History of Reveal linq implantation done on September 10, 2015. Has been monitored. Continue to monitor at this time. Coronary artery disease, history of stent using 3.5x15 mm resolute drug-eluting stent to the LAD expanded to 3.86 mm with excellent results. Most recent cardiac catheterization October 2013 revealed patent stent to the LAD with otherwise moderate disease in the distal LAD. Very small artery distally. Otherwise, no significant obstructive disease. Last stress test was done in 2015 and it was negative. Continue to monitor Hypertension, good control, continue to monitor Hyperlipidemia, continue current medication, follow-up as an outpatient Mild bilateral carotid stenosis, continue to monitor History of GI bleed, intolerance to aggressive oral anticoagulations in the past. Continue to monitor Hypothyroidism, Monitored and managed by primary care physician Diabetes mellitus, managed and followed by primary care physician. Clinical Quality Measures AMI/AHF: ASA po Prior to arrival: No DVT/VTE Risk/Contraindication: Risk Factor Score Per Nursin RFS Level Per Nursing on Admit: 4+=Very High Contraindications-Pharm: Other *list below* Other: the pt is on oral anticoag LEANNA DSOUZA MD Sep 13, 2017 07:24
--- NOTE | 2017-09-13 07:24 | Clinic Account Progress/Dx ---
Clinic Account Progress/Dx DIAGNOSIS: Date Seen by Provider: Sep 13, 2017 Time Seen by Provider: 07:24 Chest pain nonspecific etiology Paroxysmal atrial fibrillation Tachycardia Coronary artery disease Hypertension LEANNA DSOUZA MD Sep 13, 2017 07:24
--- NOTE | 2017-09-13 07:29 | Progress Note (SOAP) ---
Subjective Time Seen by Provider: 07:20 Subjective/Events-last exam Patient feeling good today. Patient having no chest pain. Patient in sinus rhythm. Patient wants to go home Objective Exam Vital Signs Date Time Temp Pulse Resp B/P (MAP) Pulse Ox O2 Delivery O2 Flow Rate FiO2 09/13/17 06:00 57 13 94 Room Air 09/13/17 05:00 55 18 153/74 (100) 90 Room Air 09/13/17 04:00 95 Room Air 09/13/17 04:00 61 25 145/69 (94) 95 Room Air 09/13/17 04:00 97.5 09/13/17 03:00 61 20 124/67 (86) 91 Room Air 09/13/17 02:00 59 19 129/65 (86) 92 Room Air 09/13/17 01:00 65 09/13/17 01:00 59 17 136/58 (84) 93 Room Air 09/13/17 00:00 93 Room Air 09/13/17 00:00 61 13 128/63 (84) 93 Room Air 09/13/17 00:00 97.7 09/12/17 23:00 52 20 113/52 (72) 92 Room Air 09/12/17 22:00 49 30 126/51 (76) 92 Room Air 09/12/17 21:30 48 30 114/55 (74) 92 Room Air 09/12/17 21:00 50 14 114/52 (72) 96 Room Air 09/12/17 20:45 51 25 112/46 (68) 95 Room Air 09/12/17 20:30 54 11 121/58 (79) 96 Room Air 09/12/17 20:07 57 09/12/17 20:07 53 12 121/57 (78) 96 Room Air 09/12/17 20:00 98.2 09/12/17 20:00 94 Room Air 09/12/17 19:46 57 14 110/74 98 Nasal Cannula 2.00 09/12/17 19:25 99 Nasal Cannula 2.00 09/12/17 15:25 132 18 185/95 99 Nasal Cannula 2.00 09/12/17 15:13 98 Nasal Cannula 2.00 100 09/12/17 14:59 125 14 185/95 (125) 98 Room Air I & O 09/13/17 07:00 Intake Total 1250 ml Output Total 650 ml Balance 600 ml Capillary Refill : Less Than 3 Seconds General Appearance: No Apparent Distress, WD/WN HEENT: Normal ENT Inspection Neck: Normal Inspection Respiratory: No Accessory Muscle Use, No Respiratory Distress Cardiovascular: Regular Rate, Rhythm, No Murmur Results Lab Laboratory Tests 09/12/17 15:09 09/13/17 03:25 Laboratory Tests 09/12/17 15:09: White Blood Count 8.8, Red Blood Count 4.75, Hemoglobin 12.9, Hematocrit 40, Mean Corpuscular Volume 85, Mean Corpuscular Hemoglobin 27, Mean Corpuscular Hemoglobin Concent 32, Red Cell Distribution Width 15.5H, Platelet Count 353, Mean Platelet Volume 10.4, Neutrophils (%) (Auto) 68, Lymphocytes (%) (Auto) 19 , Monocytes (%) (Auto) 7, Eosinophils (%) (Auto) 5, Basophils (%) (Auto) 1, Neutrophils # (Auto) 6.0, Lymphocytes # (Auto) 1.7, Monocytes # (Auto) 0.6, Eosinophils # (Auto) 0.5H, Basophils # (Auto) 0.1, Prothrombin Time 17.4H, INR Comment 1.4, Activated Partial Thromboplast Time 30, Sodium Level 141, Potassium Level 3.8, Chloride Level 104, Carbon Dioxide Level 26, Anion Gap 11, Blood Urea Nitrogen 14, Creatinine 0.73, Estimat Glomerular Filtration Rate > 60 , BUN/Creatinine Ratio 19, Glucose Level 185H, Calcium Level 9.2, Magnesium Level 1.6L, Total Bilirubin 0.4, Aspartate Amino Transf (AST/SGOT) 15, Alanine Aminotransferase (ALT/SGPT) 20, Alkaline Phosphatase 70, Myoglobin 41.1, Troponin I < 0.30, B-Type Natriuretic Peptide 97.8, Total Protein 6.7, Albumin 4.2, Digoxin Level 3.07*H 09/12/17 16:40: Urine Color YELLOW, Urine Clarity CLEAR, Urine pH 7, Urine Specific [place] 1.005L, Urine Protein NEGATIVE, Urine Glucose (UA) NEGATIVE, Urine Ketones NEGATIVE, Urine Nitrite NEGATIVE, Urine Bilirubin NEGATIVE, Urine Urobilinogen NORMAL, Urine Leukocyte Esterase NEGATIVE, Urine RBC (Auto) NEGATIVE, Urine RBC NONE, Urine WBC RARE, Urine Squamous Epithelial Cells 0-2, Urine Crystals NONE, Urine Bacteria NEGATIVE, Urine Casts NONE, Urine Mucus NEGATIVE, Urine Culture Indicated NO 09/12/17 22:20: Troponin I < 0.30 09/13/17 03:25: White Blood Count 7.7, Red Blood Count 4.25L, Hemoglobin 11.6, Hematocrit 36, Mean Corpuscular Volume 85, Mean Corpuscular Hemoglobin 27, Mean Corpuscular Hemoglobin Concent 32, Red Cell Distribution Width 15.5H, Platelet Count 292, Mean Platelet Volume 10.5H, Sodium Level 142, Potassium Level 3.8, Chloride Level 108H, Carbon Dioxide Level 26, Anion Gap 8, Blood Urea Nitrogen 12, Creatinine 0.59L, Estimat Glomerular Filtration Rate > 60, BUN/Creatinine Ratio 20, Glucose Level 122H, Calcium Level 8.3L, Magnesium Level 2.3, Total Bilirubin 0.6, Aspartate Amino Transf (AST/SGOT) 14, Alanine Aminotransferase ( ALT/SGPT) 14, Alkaline Phosphatase 51, Troponin I < 0.30, Total Protein 5.5L, Albumin 3.5, Digoxin Level 0.81, Triglycerides Level 80, Cholesterol Level 160, LDL Cholesterol Direct 118, VLDL Cholesterol 16, HDL Cholesterol 34L, Thyroid Stimulating Hormone (TSH) 1.09 Assessment/Plan Assessment/Plan Assess & Plan/Chief Complaint A. fib with RVR. Hypertension. Dig toxicity. CAD. Okay with me for patient to be discharged today. Diabetes Clinical Quality Measures AMI/AHF: ASA po Prior to arrival: No DVT/VTE Risk/Contraindication: Risk Factor Score Per Nursin RFS Level Per Nursing on Admit: 4+=Very High Contraindications-Pharm: Other *list below* Other: the pt is on oral anticoag ANNETTE MENDEZ DO Sep 13, 2017 07:29
[2017-09-13] MEDS ORDERED: MULT-35 PO (08:50)
[2017-09-13] MEDS ORDERED: RIVA20TA PO (08:50)
[2017-09-13] MEDS ORDERED: IBUP-30 PO (08:50)
[2017-09-13] MEDS ORDERED: FISH1CAP15 PO (08:50)
[2017-09-13] MEDS ORDERED: HYOS0.1281 PO (08:50)
[2017-09-13] MEDS ORDERED: METF500T4 PO ×2 (08:50)
[2017-09-13] MEDS ORDERED: PROP15DR OU (08:50)
[2017-09-13] MEDS ORDERED: SUCR1TAB36 PO (08:50)
[2017-09-13] MEDS ORDERED: ALPR0.254 PO ×2 (08:50)
[2017-09-13] MEDS ORDERED: MAG-99 PO (08:50)
[2017-09-13] MEDS ORDERED: PANT40TA2 PO (08:50)
[2017-09-13] MEDS ORDERED: ACCUFLORA PO (08:50)
[2017-09-13] MEDS ORDERED: RT-ALBUTEROL SULF 2.5 MG/3 ML PRE-MIX VIAL IH PRN (09:30)
[2017-09-13] MEDS ORDERED: MONTELUKAST 10 MG (SINGULAIR) TAB PO PRN (09:30)
[2017-09-13] MEDS ORDERED: PANTOPRAZOLE 40 MG (PROTONIX) TAB PO PRN (09:30)
[2017-09-13] MEDS ORDERED: ALPRAZolam 0.25 MG (XANAX) TAB PO PRN ×2 (09:30)
[2017-09-13] MEDS ORDERED: SUCRALFATE 1 GM (CARAFATE) TAB PO PRN (09:30)
[2017-09-13] MEDS ORDERED: IBUPROFEN TABLET 200 MG TAB PO PRN (09:30)
[2017-09-13] MEDS ORDERED: HYOSCYAMINE 0.125 MG (LEVSIN) TAB PO PRN (09:30)
[2017-09-13] MEDS ORDERED: ARTIFICAL TEARS 0.4 ML UNIT DOSE (REFRESH PLUS) OU PRN (10:00)
[2017-09-13] MEDS ORDERED: metFORMIN 500 MG (GLUCOPHAGE) TAB PO SCH ×2 (12:00→21:00)
[2017-09-13] MEDS ORDERED: RIVAROXABAN 20 MG TABLET (XARELTO) PO SCH ×2 (17:00)
[2017-09-13] MEDS ORDERED: RT-ADVAIR HFA 115/21 MCG PER PUFF IH PRN (20:00)
[2017-09-13] MEDS ORDERED: DIGOXIN 0.25 MG (LANOXIN) TAB PO SCH (21:00)
[2017-09-13] MEDS ORDERED: glipiZIDE 5 MG (GLUCOTROL) TAB PO SCH (21:00)
[2017-09-14] MEDS ORDERED: LEVOTHYROXINE 88 MCG (LEVOTHORID) TAB PO SCH (06:30)
== END 2017-09-13 10:25 | disposition home or self-care (01) | DRG 310 ==
LOC: EDUNIT# 14:55 → ER 14:57 → ICU 17:08
PROVIDERS: ADMIT Family Medicine; ATTEND Family Medicine
DX: I48.0 Paroxysmal atrial fibrillation (principal); I48.92 Unspecified atrial flutter; I25.10 Atherosclerotic heart disease of native coronary artery without angina pectoris; I10 Essential (primary) hypertension; E11.9 Type 2 diabetes mellitus without complications; E78.00 Pure hypercholesterolemia, unspecified; I65.23 Occlusion and stenosis of bilateral carotid arteries; F41.9 Anxiety disorder, unspecified; J44.9 Chronic obstructive pulmonary disease, unspecified; E89.0 Postprocedural hypothyroidism; J30.2 Other seasonal allergic rhinitis; M06.9 Rheumatoid arthritis, unspecified; M19.91 Primary osteoarthritis, unspecified site; K21.9 Gastro-esophageal reflux disease without esophagitis; T46.0X5A Adverse effect of cardiac-stimulant glycosides and drugs of similar action, initial encounter; Z95.5 Presence of coronary angioplasty implant and graft; Z79.01 Long term (current) use of anticoagulants; Z79.84 Long term (current) use of oral hypoglycemic drugs; Z86.711 Personal history of pulmonary embolism; Z86.718 Personal history of other venous thrombosis and embolism; Z97.8 Presence of other specified devices; Z87.19 Personal history of other diseases of the digestive system
CPT/HCPCS: 36415; 71045; 80053; 80061; 80162; 81000; 83735; 83874; 83880; 84443; 84484; 85025; 85027; 85610; 85730; 87081; 93005; 93041; 96361; 96365; 96366; 96367; 96368; 96375

== ENCOUNTER → 2017-11-26 | Outpatient (CLI) | payer MEDICARE, OTHER ==
[~2017-11-26] MED LIST changes: +ACCUFLORA PO; +ALPR0.254 PO; +AMIO200T2 PO; +DILT120C63 PO; +FISH1CAP15 PO; +FLUT9.9S NS; +IBUP-30 PO; +MAG-99 PO; +MECL-106 PO; -METF500T4 PO; +METF500T5 PO; +MULT-35 PO; +PROP15DR OU; +RIVA20TA PO; +SUCR1TAB36 PO
== END ==
LOC: CARD 10:05
PROVIDERS: ATTEND Physician Assistant
DX: I48.0 Paroxysmal atrial fibrillation (principal); I25.10 Atherosclerotic heart disease of native coronary artery without angina pectoris; R06.02 Shortness of breath; J45.909 Unspecified asthma, uncomplicated; F41.9 Anxiety disorder, unspecified; I08.1 Rheumatic disorders of both mitral and tricuspid valves
CPT/HCPCS: 93306

== ENCOUNTER 2017-11-28 10:35 | Day surgery (SDC) | payer MEDICARE, OTHER ==
[2017-11-28] VITALS (15 sets, daily range): BP systolic 96–163; BP diastolic 63–115
[~2017-11-28] VITALS: Ht 154.9 cm; Wt 64.9 kg
[~2017-11-28 10:35] MED LIST changes: -AMIO200T2 PO; +CATHETER FLUSH 10 ML SYR IV PRN; -DILT120C63 PO; -FLUT9.9S NS; -MECL-106 PO; +REGADENOSON 0.4 MG/5 ML SYR (LEXISCAN) IV ONE; +meTOprolol 5 MG/5 ML (LOPRESSOR) VIAL IV ONE; +meTOprolol 5 MG/5 ML (LOPRESSOR) VIAL ONE
--- OUTSIDE RECORDS SUMMARY | 2017-11-28 11:12 | XMS REPORT | Clinical Summary ---
Author Author [facility] Organization [facility] Address Unknown Phone Unavailable Care Team Providers Care Glass Technician/Installer Name Role Phone PCP Unavailable Source Comments Some departments are not documenting in the electronic medical record. If you do not see the information that you expected, contact Release of Information in the Health Information Management department at [phone] for further assistance in locating additional records.[facility] Allergies Active Allergy Reactions Severity Noted Date Comments Azithromycin UNKNOWN Low 11/26/2017 Ticagrelor UNKNOWN Low 11/26/2017 Cephalexin UNKNOWN Low 11/26/2017 Levofloxacin UNKNOWN Low 11/26/2017 Metronidazole UNKNOWN Low 11/26/2017 Meloxicam UNKNOWN Low 11/26/2017 Morphine URTICARIA Medium 11/26/2017 Norfloxacin UNKNOWN Low 11/26/2017 Prednisone UNKNOWN Low 11/26/2017 Theophylline UNKNOWN Low 11/26/2017 Trovan UNKNOWN Low 11/26/2017 Current Medications Prescription Sig. Disp. Refills Start End Date Status Date fluticasone-vilanterol(+) Inhale 1 puff by mouth Active (BREO ELLIPTA) 100-25 mcg into the lungs daily. inhalation disk albuterol (PROAIR HFA) 90 Inhale 2 puffs by mouth Active mcg/actuation inhaler into the lungs every 6 hours as needed for Wheezing or Shortness of Breath. Shake well before use. montelukast (SINGULAIR) Take 10 mg by mouth at Active 10 mg tablet bedtime daily. budesonide/formoterol Inhale 2 puffs by mouth Active (SYMBICORT HFA) 160/4.5 into the lungs twice mcg inhalation daily. rivaroxaban (XARELTO) 20 Take 20 mg by mouth Active mg tablet daily. Take with food. digoxin (LANOXIN) 250 mcg Take 250 mcg by mouth Active tablet daily. ALPRAZolam (XANAX) 0.25 Take 0.25 mg by mouth at Active mg tablet bedtime as needed for Anxiety. sucralfate (CARAFATE) 1 Take 1 g by mouth every 6 Active gram tablet hours. Take on an empty stomach. [place]-8-MPO-EPA-Fish Oil Take by mouth. Active 1,200 (144-216) mg cap fluticasone (FLONASE) 50 Apply 1 spray to each Active mcg/actuation nasal spray nostril as directed daily. Shake bottle gently before using. multivitamin (MULTIPLE Take by mouth. Active VITAMIN PO) levothyroxine (SYNTHROID) Take 88 mcg by mouth Active 88 mcg tablet daily 30 minutes before breakfast. VITAMIN B COMPLEX PO Take by mouth. Active albuterol 0.083% Inhale 1 vial solution by Active (PROVENTIL; VENTOLIN) 2.5 nebulizer as directed mg /3 mL (0.083 %) every 4 hours as needed nebulizer solution for Wheezing or Shortness of Breath. glipiZIDE (GLUCOTROL) 5 Take 2.5 mg by mouth Active mg tablet twice daily with meals. hyoscyamine sulfate Take 125 mcg by mouth Active (LEVSIN) 0.125 mg tablet every 4 hours as needed for Cramps. meclizine (ANTIVERT) 25 Take 25 mg by mouth three Active mg tablet times daily as needed. metFORMIN (GLUCOPHAGE) Take 500 mg by mouth Active 500 mg tablet twice daily with meals. pantoprazole DR Take 40 mg by mouth Active (PROTONIX) 40 mg tablet daily. Active Problems Not on file Encounters Date Type Specialty Care Team Description 11/26/2017 Telephone Cardiology Opal Dooley Records Request ( records received) 11/26/2017 Patient Profile Cardiology Maira Gibson New Patient ( PAF (paroxysmal atrial fibrillation) ([facility]) [I48.0] ) 11/26/2017 Orders Only Cardiology Lois Pathak PAF (paroxysmal atrial fibrillation) ([facility]) (Primary Dx) 11/26/2017 Orders Only Cardiology Lois Pathak from Last 3 Months Family History Medical History Relation Name Comments Heart Attack Brother Alcohol abuse Brother Diabetes Brother Melanoma Brother in leg Coronary Artery Disease Father Stroke Maternal Grandfather Unknown to Patient Maternal Grandmother Coronary Artery Disease Mother Emphysema Mother Stroke Mother Asthma Paternal Grandfather Unknown to Patient Paternal Grandmother Arthritis Sister Atrial Fibrillation Sister Heart defect Sister hole in heart Heart problem Sister Pacemaker Sister Relation Name Status Comments Brother (Age 65) Brother (Age 68) Father former heavy smoker (Age 79) Maternal Grandfather Maternal Grandmother Mother (Age 80) Paternal Grandfather Paternal Grandmother Sister (Age 80) Sister Alive Social History Tobacco Use Types Packs/Day Years Used Date Never Smoker Smokeless Tobacco: Never Used Alcohol Use Drinks/Week oz/Week Comments No Sex Assigned at Date Recorded Not on file Last Filed Vital Signs Not on file Plan of Treatment Health Maintenance Due Date Last Done Comments PHYSICAL (COMPREHENSIVE) 01/31/1948 EXAM PERTUSSIS VACCINE 01/31/1952 TETANUS VACCINE 1958 SHINGLES VACCINE 2001 OSTEOPOROSIS SCREENING 2006 PREVNAR/PNEUMOVAX (#1) 2006 INFLUENZA VACCINE 04/08/2018 Results Not on filefrom Last 3 Months
--- OUTSIDE RECORDS SUMMARY | 2017-11-28 11:12 | XMS REPORT | Encounter Summary ---
Author Author [facility] Organization [facility] Address Unknown Phone Unavailable Care Team Providers Care Infantry Unit Leader Name Role Phone PCP Unavailable Reason for Visit * Reason Comments New Patient PAF (paroxysmal atrial fibrillation) ([facility]) [I48.0] Encounter Details Date Type Department Care Team Description 11/26/2017 Patient Profile [facility] Maira Gibson New Patient ( PAF [address] (paroxysmal atrial Tarik G600 fibrillation) ([facility]) [place] [address] [I48.0] ) [phone] Social History Tobacco Use Types Packs/Day Years Used Date Never Smoker Smokeless Tobacco: Never Used Alcohol Use Drinks/Week oz/Week Comments No Sex Assigned at Date Recorded Not on file as of this encounter Progress Notes * Maira Gibson - 11/26/2017 1:19 PM CDT Pt has [employer] Link in this encounter Plan of Treatment Not on fileas of this encounter Visit Diagnoses Diagnosis Cardiac device in situ - Primary Unspecified cardiac device in situ
--- OUTSIDE RECORDS SUMMARY | 2017-11-28 11:12 | XMS REPORT | Encounter Summary ---
Author Author [facility] Organization [facility] Address Unknown Phone Unavailable Care Team Providers Care Network And Threat Support Specialist Name Role Phone PCP Unavailable Reason for Referral * Consult, Test & Treat (Routine) Status Reason Specialty Diagnoses / Referred By Referred To Procedures Contact Contact New Request Specialty Cardiology Diagnoses Karie Aguilar, Rupali, Doug P, Services PAF (paroxysmal MD REINA Required atrial [address] [address] fibrillation) [address] (HCC) [place] [id number] Phone: Fax: Encounter Details Date Type Department Care Team Description 11/26/2017 Orders Only MAC-REFERRAL Lois Pathak PAF (paroxysmal atrial fibrillation) ([facility]) (Primary Dx) Social History Tobacco Use Types Packs/Day Years Used Date Never Smoker Smokeless Tobacco: Never Used Alcohol Use Drinks/Week oz/Week Comments No Sex Assigned at Date Recorded Not on file as of this encounter Plan of Treatment Name Priority Associated Diagnoses Order Schedule AMB REFERRAL TO ADULT CARDIOLOGY Routine PAF (paroxysmal atrial Ordered : 11/26/2017 fibrillation) ([facility]) as of this encounter Visit Diagnoses Diagnosis PAF (paroxysmal atrial fibrillation) ([facility]) - Primary Atrial fibrillation
--- OUTSIDE RECORDS SUMMARY | 2017-11-28 11:12 | XMS REPORT | Encounter Summary ---
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 Name Role Phone PCP Unavailable Reason for Visit * Reason Comments Records Request records received Encounter Details Date Type Department Care Team Description 11/26/2017 Telephone [facility] Opal Dooley Records Request (records [address] received) [place] [address] Social History Tobacco Use Types Packs/Day Years Used Date Never Smoker Smokeless Tobacco: Never Used Alcohol Use Drinks/Week oz/Week Comments No Sex Assigned at Date Recorded Not on file as of this encounter Miscellaneous Notes * Telephone Encounter - Nasima Foy RN - 11/27/2017 8:24 AM CDT Records received - In MPE right fax folder * Telephone Encounter - Opal Dooley - 11/26/2017 3:37 PM CDT Medical records have been requested from [facility] in [place], [place]. Opal Dooley ----- Message from Viridiana Romero sent at 11/26/2017 11:36 AM CDT ----- Regarding: please request recs/patient provided information/Thanks Guerline Name: BLACK JJ Date: 12/07/2017 Status: [facility] Time: 8:30 AM Length: 30 Visit Type: NEW PATIENT [4010] Provider: Doug Zapien MD Department: [facility] Hosp: yes at [facility] [phone] (recs requested) in this encounter Plan of Treatment Not on fileas of this encounter Visit Diagnoses Not on filein this encounter
--- OUTSIDE RECORDS SUMMARY | 2017-11-28 11:13 | XMS REPORT | Encounter Summary ---
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
[2017-11-28] MEDS ORDERED: VERAPAMIL 5 MG/2 ML (CALAN) VIAL IV NR (11:15)
--- OUTSIDE RECORDS SUMMARY | 2017-11-28 11:22 | XMS REPORT | Continuity of Care Document ---
Author Author [facility] Organization [facility] Address Unknown Phone Unavailable Allergies Active Description Code Type Severity Reaction Onset Reported/Identified Relationship to Patient Clinical Status Yes cephalexin [id number] Drug Allergy Unknown N/A 04/23/2006 Yes morphine [id number] Drug Allergy Unknown N/A 04/23/2006 Yes prednisone [id number] Drug Allergy Unknown N/A 04/23/2006 Yes theophylline [id number] Drug Allergy Unknown N/A 04/23/2006 Yes norfloxacin [id number] Drug Allergy Unknown GI INTOLERANCE 09/11/2007 Yes trovafloxacin [id number] Drug Allergy Unknown GI INTOLERANCE 09/11/2007 Yes azithromycin [id number] Drug Allergy Unknown N/A 06/23/2012 Yes levofloxacin [id number] Drug Allergy Unknown N/A 06/23/2012 Yes meloxicam [id number] Drug Allergy Unknown N/A 06/23/2012 Yes metronidazole [id number] Drug Allergy Unknown N/A 06/23/2012 Yes prednisone [id number] Drug Allergy Moderate STOMACH BLEED 10/19/2015 Yes metoprolol [id number] Drug Allergy Unknown NECK SPASMS 10/18/2016 Medications [...] NOS 09/23/2011 Ot 414.01 CORONARY ATHEROSCLEROSIS OF [place] CORON 09/23/2011 Ot 493.90 ASTHMA, UNSPECIFIED 09/23/2011 [...] NOS 06/28/2012 Ot 414.01 CORONARY ATHEROSCLEROSIS OF [place] CORON 06/28/2012 Ot 427.31 ATRIAL FIBRILLATION 06/28/2012 [...] VEGA MD Ot 414.01 CORONARY ATHEROSCLEROSIS OF [place] CORON 12/23/2012 JUAN FRANCISCO VEGA MD Ot [...] DSOUZA MD Ot 414.01 CORONARY ATHEROSCLEROSIS OF [place] CORON 10/17/2013 LEANNA DSOUZA MD Ot 427.31 [...] MD Ot I25.10 ATHSCL HEART DISEASE OF [place] CORONARY 09/10/2015 JUAN FRANCISCO VEGA MD Ot I48.0 PAROXYSMAL ATRIAL FIBRILLATION 09/10/2015 JUAN FRANCISCO VEGA MD Ot J45.909 UNSPECIFIED ASTHMA, UNCOMPLICATED 09/10/2015 JUAN FRANCISCO VEGA MD Ot K21.9 GASTRO-ESOPHAGEAL REFLUX DISEASE WITHOUT 09/10/2015 JUAN FRANCISCO VEGA MD Ot R07.9 CHEST PAIN, UNSPECIFIED 09/10/2015 JUAN FRANCISCO VEGA MD Ot Z79.02 RETIREMENT (CURRENT) USE OF ANTITHROMBOTI 09/10/2015 JUAN FRANCISCO [...] MD Ot I25.10 ATHSCL HEART DISEASE OF [place] CORONARY 10/21/2015 JUAN FRANCISCO VEGA MD Ot [...] MD Ot I25.10 ATHSCL HEART DISEASE OF [place] CORONARY 10/21/2015 JUAN FRANCISCO VEGA MD Ot [...] NATIV 04/19/2016 Ot 414.01 CORONARY ATHEROSCLEROSIS OF [place] CORON 04/19/2016 Ot 786.50 CHEST PAIN NOS [...] DSOUZA MD Ot 414.01 CORONARY ATHEROSCLEROSIS OF [place] CORON 04/19/2016 LEANNA DSOUZA MD Ot 427.31 [...] MD Ot I25.10 ATHSCL HEART DISEASE OF [place] CORONARY 10/19/2016 JUAN FRANCISCO VEGA MD Ot [...] 10/19/2016 JUAN FRANCISCO VEGA MD Ot Z79.84 INSURANCE AGENTS SUPERVISOR (CURRENT) USE OF ORAL HYPOGLYC 10/19/2016 JUAN [...] MD Ot I25.10 ATHSCL HEART DISEASE OF [place] CORONARY 10/20/2016 JUAN FRANCISCO VEGA MD Ot [...] 10/20/2016 JUAN FRANCISCO VEGA MD Ot Z79.84 INSURANCE AGENTS SUPERVISOR (CURRENT) USE OF ORAL HYPOGLYC 10/20/2016 JUAN [...] APRN Ot I25.10 ATHSCL HEART DISEASE OF [place] CORONARY 05/16/2017 CR CASON APRN Ot J44.9 CHRONIC OBSTRUCTIVE PULMONARY DISEASE, U 05/16/2017 CR CASON APRN Ot K21.9 GASTRO-ESOPHAGEAL REFLUX DISEASE WITHOUT 05/16/2017 CR CASON APRN Ot M06.9 RHEUMATOID ARTHRITIS, UNSPECIFIED 05/16/2017 CR CASON APRN Ot R10.11 RIGHT UPPER QUADRANT PAIN 05/16/2017 CR CASON APRN Ot S39.011A STRAIN OF MUSCLE, FASCIA AND TENDON OF A 05/16/2017 CR CASON APRN Ot Z79.84 INSURANCE AGENTS SUPERVISOR (CURRENT) USE OF ORAL HYPOGLYC 05/16/2017 CR [...] MD Ot I25.10 ATHSCL HEART DISEASE OF [place] CORONARY 06/01/2017 RACHAEL PIMENTEL MD Ot J01.90 ACUTE SINUSITIS, UNSPECIFIED 06/01/2017 RACHAEL PIMENTEL MD, Ot J44.9 CHRONIC OBSTRUCTIVE PULMONARY DISEASE, U 06/01/2017 RACHAEL PIMENTEL MD Ot K21.9 GASTRO-ESOPHAGEAL REFLUX DISEASE WITHOUT 06/01/2017 RACHAEL PIMENTEL MD Ot M06.9 RHEUMATOID ARTHRITIS, UNSPECIFIED 06/01/2017 RACHAEL PIMENTEL MD Ot R42 DIZZINESS AND GIDDINESS 06/01/2017 RACHAEL PIMENTEL MD Ot Z79.84 INSURANCE AGENTS SUPERVISOR (CURRENT) USE OF ORAL HYPOGLYC 06/01/2017 RACHAEL [...] Ot Z95.5 PRESENCE OF CORONARY ANGIOPLASTY IMPLANT 09/13/2017 JUAN FRANCISCO VEGA MD Ot E11.9 TYPE 2 DIABETES MELLITUS WITHOUT COMPLIC 09/13/2017 JUAN FRANCISCO VEGA MD Ot E78.00 PURE HYPERCHOLESTEROLEMIA, UNSPECIFIED 09/13/2017 JUAN FRANCISCO VEGA MD Ot E89.0 POSTPROCEDURAL HYPOTHYROIDISM 09/13/2017 JUAN FRANCISCO VEGA MD Ot F41.9 ANXIETY DISORDER, UNSPECIFIED 09/13/2017 JUAN FRANCISCO VEGA MD Ot I10 ESSENTIAL (PRIMARY) HYPERTENSION 09/13/2017 JUAN FRANCISCO VGEA MD Ot I25.10 ATHSCL HEART DISEASE OF [place] CORONARY 09/13/2017 JUAN FRANCISCO VEGA MD Ot I48.0 PAROXYSMAL ATRIAL FIBRILLATION 09/13/2017 JUAN FRANCISCO VEGA MD Ot I48.92 UNSPECIFIED ATRIAL FLUTTER 09/13/2017 JUAN FRANCISCO VEGA MD Ot 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 09/13/2017 JUAN FRANCISCO VEGA MD Ot J30.2 OTHER SEASONAL ALLERGIC RHINITIS 09/13/2017 JUAN FRANCISCO VEGA MD, Ot J44.9 CHRONIC OBSTRUCTIVE PULMONARY DISEASE, U 09/13/2017 JUAN FRANCISCO VEGA MD, Ot K21.9 GASTRO-ESOPHAGEAL REFLUX DISEASE WITHOUT 09/13/2017 JUAN FRANCISCO VEGA MD Ot M06.9 RHEUMATOID ARTHRITIS, UNSPECIFIED 09/13/2017 JUAN FRANCISCO VEGA MD, Ot M19.91 PRIMARY OSTEOARTHRITIS, UNSPECIFIED SITE 09/13/2017 JUAN FRANCISCO VEGA MD, Ot T46.0X5A ADVERSE EFFECT OF CARDI-STIM GLYCOS/DRUG 09/13/2017 JUAN FRANCISCO VEGA MD Ot Z79.01 INSURANCE AGENTS SUPERVISOR (CURRENT) USE OF 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 09/13/2017 JUAN FRANCISCO VEGA MD Ot Z79.84 INSURANCE AGENTS SUPERVISOR (CURRENT) USE OF ORAL HYPOGLYC 09/13/2017 JUAN FRANCISCO VEGA MD, Ot Z86.711 PERSONAL HISTORY OF PULMONARY EMBOLISM 09/13/2017 JUAN FRANCISCO VEGA MD Ot Z86.718 PERSONAL HISTORY OF OTHER VENOUS THROMBO 09/13/2017 JUAN FRANCISCO VEGA MD Ot Z87.19 PERSONAL HISTORY OF OTHER DISEASES OF TH 09/13/2017 JUAN FRANCISCO VEGA MD Ot Z95.5 PRESENCE OF CORONARY ANGIOPLASTY IMPLANT 09/13/2017 SILVIA REINA, JUAN FRANCISCO Singer Ot Z97.8 PRESENCE OF OTHER SPECIFIED DEVICES 11/22/2017 Ot 473.9 CHRONIC SINUSITIS NOS 11/22/2017 Ot 611.72 LUMP OR MASS IN BREAST 11/22/2017 Ot 784.2 SWELLING IN HEAD NECK 11/22/2017 Ot 786.6 CHEST SWELLING/MASS/LUMP 11/22/2017 LEANNA DSOUZA MD Ot 272.4 HYPERLIPIDEMIA NEC/NOS 11/22/2017 LEANNA DSOUZA MD Ot 397.0 TRICUSPID VALVE DISEASE 11/22/2017 LEANNA DSOUZA MD Ot 414.00 CORON ATHEROSCLER NOS TYPE VESSEL, NATIV 11/22/2017 LEANNA DSOUZA MD Ot 424.0 MITRAL VALVE DISORDER 11/22/2017 LEANNA DSOUZA MD Ot 427.31 ATRIAL FIBRILLATION 11/22/2017 LEANNA DSOUZA MD Ot 414.01 CORONARY ATHEROSCLEROSIS OF [place] CORON 11/22/2017 LEANNA DSOUZA MD Ot 427.31 ATRIAL FIBRILLATION 11/22/2017 LEANNA DSOUZA MD Ot 401.9 HYPERTENSION NOS 11/22/2017 LEANNA DSOUZA MD Ot 414.00 CORON ATHEROSCLER NOS TYPE VESSEL, NATIV 11/22/2017 LEANNA DSOUZA MD Ot 786.50 CHEST PAIN NOS 11/22/2017 LEANNA DSOUZA MD Ot V12.51 HX-VENOUS THROMBOSIS EMBOLISM 11/22/2017 JULIAN MARTIN DO Ot 300.00 ANXIETY STATE NOS 11/22/2017 JULIAN MARTIN DO Ot 493.90 ASTHMA, UNSPECIFIED 11/22/2017 JULIAN MARTIN DO Ot 786.09 RESPIRATORY ABNORM NEC 11/22/2017 JULIAN MARTIN DO Ot E66.9 OBESITY, UNSPECIFIED 11/22/2017 JULIAN MARTIN DO Ot J45.909 UNSPECIFIED ASTHMA, UNCOMPLICATED 11/22/2017 JULIAN MARTIN DO Ot R06.00 DYSPNEA, UNSPECIFIED Procedures Code Description Performed By Performed On 00.40 09/22/2011 00.45 09/22/2011 00.66 09/22/2011 36.07 09/22/2011 37.22 09/22/2011 88.53 09/22/2011 88.56 09/22/2011 45.16 ESOPHAGOGASTRODUODENOSCOPY [ EGD] W/CLOSE 06/27/2012 48.24 ENDOSCOPIC BIOPSY OF RECTUM 06/27/2012 [id number] INSERT OF MONITOR DEV INTO CHEST SUBCU/F 09/10/2015 [id number] MONITOR CARDIAC ELECTR ACTIVITY, AMBULAT 09/10/2015 [id number] EXCISION OF ESOPHAGOGASTRIC JUNCTION, EN 10/19/2016 [id number] EXCISION OF STOMACH, PYLORUS, ENDO, DIAG 10/19/2016 [id number] EXCISION OF DUODENUM, ENDO , DIAGN 10/19/2016 [...] plasma albumin measurement (mass/volume) 3.9 g/dL 3.2-4.5 [id number] - 10/18/16 11:45 [id number] SPECIMEN AVAILABLE [facility] Serum or plasma troponin i.cardiac measurement (mass/volume) [...] urinalysis with reflex to culture NO NRG Complete blood count (CBC) with automated white blood cell (WBC) differential - 09/12/17 15:09 Blood leukocytes automated count (number/volume) 8.8 10*3/uL 4.3-11.0 Blood erythrocytes automated count (number/volume) 4.75 10*6/uL 4.35-5.85 Venous blood hemoglobin measurement (mass/volume) 12.9 g/dL 11.5-16.0 Blood hematocrit (volume fraction) 40 % 35-52 Automated erythrocyte mean corpuscular volume 85 [foz_us] 80-99 Automated erythrocyte mean corpuscular hemoglobin (mass per erythrocyte) 27 pg 25-34 Automated erythrocyte mean corpuscular hemoglobin concentration measurement ( mass/volume) 32 g/dL 32-36 Automated erythrocyte distribution width ratio 15.5 % 10.0-14.5 Automated blood platelet count (count/volume) 353 10*3/uL 130-400 Automated blood platelet mean volume measurement 10.4 [foz_us] 7.4-10.4 Automated blood neutrophils/100 leukocytes 68 % 42-75 Automated blood lymphocytes/100 leukocytes 19 % 12-44 Blood monocytes/100 leukocytes 7 % 0-12 Automated blood eosinophils/100 leukocytes 5 % 0-10 Automated blood basophils/100 leukocytes 1 % 0-10 Blood neutrophils automated count (number/volume) 6.0 10*3 1.8-7.8 Blood lymphocytes automated count (number/volume) 1.7 10*3 1.0-4.0 Blood monocytes automated count (number/volume) 0.6 10*3 0.0-1.0 Automated eosinophil count 0.5 10*3/uL 0.0-0.3 Automated blood basophil count (count/volume) 0.1 10*3/uL 0.0-0.1 PT panel in platelet poor plasma by coagulation assay - 09/12/17 15:09 Prothrombin time (PT) in platelet poor plasma by coagulation assay 17.4 s 12.2-14.7 INR in platelet poor plasma or blood by coagulation assay 1.4 0.8-1.4 Activated partial thromboplastin time (aPTT) in platelet poor plasma bycoagulation assay - 09/12/17 15:09 Activated partial thromboplastin time (aPTT) in platelet poor plasma bycoagulation assay 30 s 24-35 Comprehensive metabolic panel - 09/12/17 15:09 Serum or plasma sodium measurement (moles/volume) 141 mmol/L 135-145 Serum or plasma potassium measurement (moles/volume) 3.8 mmol/L 3.6-5.0 Serum or plasma chloride measurement (moles/volume) 104 mmol/L 98-107 Carbon dioxide 26 mmol/L 21-32 Serum or plasma anion gap determination (moles/volume) 11 mmol/L 5-14 Serum or plasma urea nitrogen measurement (mass/volume) 14 mg/dL 7-18 Serum or plasma creatinine measurement (mass/volume) 0.73 mg/dL 0.60-1.30 Serum or plasma urea nitrogen/creatinine mass ratio 19 NRG Serum or plasma creatinine measurement with calculation of estimated glomerular filtration rate > NRG Serum or plasma glucose measurement (mass/volume) 185 mg/dL 70-105 Serum or plasma calcium measurement (mass/volume) 9.2 mg/dL 8.5-10.1 Serum or plasma total bilirubin measurement (mass/volume) 0.4 mg/dL 0.1-1.0 Serum or plasma alkaline phosphatase measurement (enzymatic activity/volume) 70 U/L 40-136 Serum or plasma aspartate aminotransferase measurement (enzymatic activity/ volume) 15 U/L 5-34 Serum or plasma alanine aminotransferase measurement (enzymatic activity/volume ) 20 U/L 0-55 Serum or plasma protein measurement (mass/volume) 6.7 g/dL 6.4-8.2 Serum or plasma albumin measurement (mass/volume) 4.2 g/dL 3.2-4.5 Magnesium - 09/12/17 15:09 Magnesium 1.6 mg/dL 1.8-2.4 Serum or plasma troponin i.cardiac measurement (mass/volume) - 09/12/17 15:09 Serum or plasma troponin i.cardiac measurement (mass/volume) < ng/ mL <0.30 Myoglobin, serum - 09/12/17 15:09 Myoglobin, serum 41.1 ng/mL 10.0-92.0 Digoxin - 09/12/17 15:09 Digoxin 3.07 ng/mL 0.80-2.00 Serum or plasma lithium measurement (moles/volume) - 09/12/17 15:09 BNP level 97.8 pg/mL <100.0 Complete urinalysis with reflex to culture - 09/12/17 16:40 Urine color determination YELLOW NRG Urine clarity determination CLEAR NRG Urine pH measurement by test strip 7 5-9 Specific gravity of urine by test strip 1.005 1.016- 1.022 Urine protein assay by test [...] count by microscopy (number/high power field ) RARE NRG Bacteria detection in urine sediment by light microscopy NEGATIVE NRG Squamous epithelial cells detection in urine sediment by light microscopy 0-2 NRG Crystals detection in urine sediment by light microscopy NONE NRG Casts detection in urine sediment by light microscopy NONE NRG Mucus detection in urine sediment by light microscopy NEGATIVE NRG Complete urinalysis with reflex to culture NO NRG Methicillin resistant Staphylococcus aureus (MRSA) screening culture - 20:12 Methicillin resistant Staphylococcus aureus (MRSA) screening culture NEG NRG Serum or plasma troponin i.cardiac measurement (mass/volume) - 09/12/17 22:20 Serum or plasma troponin i.cardiac measurement (mass/volume) < ng/ mL <0.30 Automated blood complete blood count (hemogram) panel - 09/13/17 03:25 Blood leukocytes automated count (number/volume) 7.7 10*3/uL 4.3-11.0 Blood erythrocytes automated count (number/volume) 4.25 10*6/uL 4.35-5.85 Venous blood hemoglobin measurement (mass/volume) 11.6 g/dL 11.5-16.0 Blood hematocrit (volume fraction) 36 % 35-52 Automated erythrocyte mean corpuscular volume 85 [foz_us] 80-99 Automated erythrocyte mean corpuscular hemoglobin (mass per erythrocyte) 27 pg 25-34 Automated erythrocyte mean corpuscular hemoglobin concentration measurement ( mass/volume) 32 g/dL 32-36 Automated erythrocyte distribution width ratio 15.5 % 10.0-14.5 Automated blood platelet count (count/volume) 292 10*3/uL 130-400 Automated blood platelet mean volume measurement 10.5 [foz_us] 7.4-10.4 Comprehensive metabolic panel - 09/13/17 03:25 Serum or plasma sodium measurement (moles/volume) 142 mmol/L 135-145 Serum or plasma potassium measurement (moles/volume) 3.8 mmol/L 3.6-5.0 Serum or plasma chloride measurement (moles/volume) 108 mmol/L 98-107 Carbon dioxide 26 mmol/L 21-32 Serum or plasma anion gap determination (moles/volume) 8 mmol/L 5-14 Serum or plasma urea nitrogen measurement (mass/volume) 12 mg/dL 7-18 Serum or plasma creatinine measurement (mass/volume) 0.59 mg/dL 0.60-1.30 Serum or plasma urea nitrogen/creatinine mass ratio 20 NRG Serum or plasma creatinine measurement with calculation of estimated glomerular filtration rate > NRG Serum or plasma glucose measurement (mass/volume) 122 mg/dL 70-105 Serum or plasma calcium measurement (mass/volume) 8.3 mg/dL 8.5-10.1 Serum or plasma total bilirubin measurement (mass/volume) 0.6 mg/dL 0.1-1.0 Serum or plasma alkaline phosphatase measurement (enzymatic activity/volume) 51 U/L 40-136 Serum or plasma aspartate aminotransferase measurement (enzymatic activity/ volume) 14 U/L 5-34 Serum or plasma alanine aminotransferase measurement (enzymatic activity/volume ) 14 U/L 0-55 Serum or plasma protein measurement (mass/volume) 5.5 g/dL 6.4-8.2 Serum or plasma albumin measurement (mass/volume) 3.5 g/dL 3.2-4.5 Serum or plasma troponin i.cardiac measurement (mass/volume) - 09/13/17 03:25 Serum or plasma troponin i.cardiac measurement (mass/volume) < ng/ mL <0.30 Lipid 1996 panel - 09/13/17 03:25 Serum or plasma triglyceride measurement (mass/volume) 80 mg/dL <150 Serum or plasma cholesterol measurement (mass/volume) 160 mg/dL < 200 Serum or plasma cholesterol in HDL measurement (mass/volume) 34 mg/ dL 40-60 Cholesterol in LDL [mass/volume] in serum or plasma by direct assay 118 mg/dL 1-129 Serum or plasma cholesterol in VLDL measurement (mass/volume) 16 mg/ dL 5-40 THYROID STIMULATING HORMONE - 09/13/17 03:25 THYROID STIMULATING HORMONE 1.09 u[iU]/mL 0.35-4.94 Digoxin - 09/13/17 03:25 Digoxin 0.81 ng/mL 0.80-2.00 Magnesium - 09/13/17 03:25 Magnesium 2.3 mg/dL 1.8-2.4 Encounters ACCT No. Visit Date/Time Discharge Status Pt. Type Provider Facility Loc./Unit Complaint [id number] 09/12/2017 17:08:00 09/13/2017 10:25:00 DIS Inpatient JUAN FRANCISCO VEGA MD [facility] ICU A-FIB WITH RVR [id number] 06/01/2017 01:48:00 06/01/2017 04:28:00 DIS Emergency RACHAEL PIMENTEL MD [facility] ER ABD PAIN,NAUSEA, WEAKNESS [id number] 05/16/2017 12:33:00 05/16/2017 16:06:00 DIS Emergency CR CASON APRN [facility] ER ABD PAIN [id number] 10/18/2016 10:55:00 10/20/2016 11:45:00 DIS Inpatient JUAN FRANCISCO VEGA MD [facility] 4TH SHORTNESS OF BREATH [id number] 04/19/2016 12:57:00 04/19/2016 23:59:59 [facility] Outpatient JULIAN MARTIN DO [facility] RAD DYSPNEA,ASTHMA,OBESITY [id number] 10/19/2015 11:01:00 10/21/2015 10:50:00 DIS Inpatient JUAN FRANCISCO VEGA MD [facility] CSD CHEST PAIN,ANXIETY, DYSPNEA [id number] 09/09/2015 15:45:00 09/10/2015 09:45:00 DIS Inpatient JUAN FRANCISCO VEGA MD [facility] ICU ATRIAL FIBRILLATION WITH RVR [id number] 01/22/2015 14:10:00 01/22/2015 23:59:59 CLS Outpatient VERONICARICHARD ALLEN JULIAN Prasad [facility] RT DYSPNEA,BRONCHIAL ASTHMA [id number] 11/09/2014 12:30:00 11/09/2014 23:59:59 CLS Outpatient LEANNA DSOUZA MD [facility] CARD CAD CP HTN [id number] 12/09/2013 23:30:00 12/10/2013 01:24:00 DIS Emergency ARELIS STACY ALLEN [facility] ER DIZZY;HEADACHE [id number] 10/17/2013 07:07:00 10/17/2013 16:00:00 DIS Outpatient LEANNA DSOUZA MD [facility] CATH CAD,ABN STRESS TEST, OBESITY,HLP,HTN [id number] 10/13/2013 08:07:00 10/13/2013 23:59:59 CLS Outpatient LEANNA DSOUZA MD [facility] RAD AFIB,CAD [id number] 09/09/2013 09:39:00 09/09/2013 23:59:59 CLS Outpatient LEANNA DSOUZA MD [facility] CARD AFIB,CAD [id number] 12/23/2012 00:52:00 12/23/2012 18:10:00 DIS Inpatient JUAN FRANCISCO VEGA MD [facility] ICU A FIB WITH RVR [id number] 11/28/2017 08:15:00 PEN Preadmit ODELL DOMINGUEZ [facility] CARD F41.9 ANXIETY, I48.0 AFIB [id number] 11/26/2017 10:30:00 PEN Preadmit ODELL DOMINGUEZ [facility] CARD F41.9 ANXIETY, I48.0 AFIB [id number] 11/09/2014 12:30:00 Document Registration [id number] 11/09/2014 12:30:00 Document Registration [id number] 11/09/2014 12:30:00 Document Registration [id number] 09/23/2012 13:05:00 Document Registration [id number] 06/23/2012 11:41:00 Document Registration [id number] 01/04/2012 00:00:00 Document Registration [id number] 11/24/2011 06:17:00 Document Registration [id number] 11/21/2011 09:45:00 Document Registration [id number] 10/17/2011 12:19:00 Document Registration [id number] 10/11/2011 08:43:00 Document Registration [id number] 10/09/2011 08:55:00 Document Registration [id number] 10/06/2011 11:26:00 Document Registration [id number] 09/30/2011 08:18:00 Document Registration [id number] 08/04/2011 13:20:00 Document Registration [id number] 06/05/2011 09:19:00 Document Registration [id number] 05/31/2010 10:25:00 Document Registration [id number] 05/05/2010 14:26:00 Document Registration [id number] 12/08/2009 13:31:00 Document Registration [id number] 05/14/2017 08:13:14 05/14/2017 23:59:59 [id number] 01/22/2015 14:11:07 ACT Document Registration
--- NOTE | 2017-11-28 11:29 | Cardiology History & Physical ---
HPI-Cardiology Cardiology Consultation Date of Consultation 11/28/17 Date of Admission Time Seen by Provider: 11:22 Indication: afib with RVR HPI Patient is a very pleasant 77 y/o female with history of PAF, CAD, HTN, HLP. Was seen in the office last week after noticing increased episodes of atrial fibrillation on her Linq monitor. Patient complains of increased dyspnea and fatigue over the past week. Presented as outpatient for stress test this morning and resting HR was in the 130's to 140's. Complaining of some dyspnea. Denies any CP, dizziness, or lightheadedness. Has had history of hypotension and dizziness with low dose blood pressure medications in the past. Patient is being admitted to ICU for further management of AF with RVR. 77-year-old lady with history of coronary artery disease paroxysmal atrial fibrillation, seen in the stress lab today with atrial flutter ablation rapid ventricular response has been in and out of atrial fibrillation. Patient was admitted to the hospital after receiving 5 mg of Lopressor IV twice without response. I started her on digoxin IV in addition to her oral digoxin and I gave her one dose of verapamil IV in addition I'm starting Cardizem by mouth if needed. She denied any shortness of breath but has been complaining of fatigue and palpitation with fluttering sensation in her chest PMH-Cardiology Immunizations Up To Date Tetanus Booster (DTap): Unknown Date of Pneumonia Vaccine: Mar 14, 2016 Date of Influenza Vaccine: Apr 08, 2017 Seasonal Allergies Seasonal Allergies: Yes Surgeries Yes (R Thyroidectomy, Carpal Tunnel, heart stent) Respiratory Yes (asthma) Asthma Cardiovascular Yes (stents x 3, implanted heart monitor) Deep Vein Thrombosis, Irregular Heartbeat, Atrial Fibrillation, High Cholesterol Neurological No Reproductive System Hx Reproductive Disorders: No Sexually Transmitted Disease: No HIV/AIDS: No Female Reproductive Disorders: Denies Genitourinary No Gastrointestinal Yes (stomach bleeds) Gastroesophageal Reflux, Gastrointestinal Bleed, Chronic Diarrhea, Gall Bladder Disease Musculoskeletal Yes Arthritis, Rheumatoid Arthritis Endocrine Yes (right thyroidectomy) Diabetes, Non-Insulin dep HEENT Yes Cataract Loss of Vision: Denies Hearing Impairment: Denies Cancer No Psychosocial Yes Anxiety Integumentary No Blood Transfusions Yes Adverse Rxn to Transfusion: No Social History Patient Social History Marrital Status: Employed/Student: retired Dip or chew tobacco?: No Recent Foreign Travel: No Contact w/other who traveled: No Family Hx Significant Family History: Heart Disease, Hypertension Family History: Arthritis 19 FATHER G8 SISTER Congenital heart disease 19 MOTHER G8 BROTHER Diabetes mellitus G8 BROTHER FH: CHF (congestive heart failure) 19 FATHER 19 MOTHER G8 BROTHER FH: CVA (cerebrovascular accident) 19 MOTHER G8 SISTER FH: hypercholesterolemia FH: musculoskeletal disease 19 FATHER G8 SISTER Glaucoma G8 SISTER Hypercholesterolemia Hypertension 19 MOTHER G8 SISTER Myocardial infarction G8 BROTHER ROS-Cardiology Review of Systems General: No Night Sweats; Fatigue, Malaise HEENT: No Visual Changes, No Dysphasia, No Sore Throat Pulmonary: Dyspnea; No Cough, No Pleuritic Chest Pain Cardiovascular: Palpitations; No: Chest Pain, Paroxysmal Noc. Dyspnea, Edema Gastrointestinal: No: Nausea, Vomiting Genitourinary: No Dysuria, No Frequency Musculoskeletal: No: neck pain, back pain Neurological: No: Weakness, Numbness, Change in speech, Confusion Home Medications & Allergies Allergies: Coded Allergies: azithromycin (Verified Allergy, Unknown, 06/23/12) cephalexin (Verified Allergy, Unknown, 04/23/06) levofloxacin (Verified Allergy, Unknown, 06/23/12) meloxicam (Verified Allergy, Unknown, 06/23/12) metoprolol (Verified Allergy, Unknown, NECK SPASMS, 10/18/16) metronidazole (Verified Allergy, Unknown, 06/23/12) morphine (Verified Allergy, Unknown, 04/23/06) theophylline (Verified Allergy, Unknown, 04/23/06) prednisone (Verified Adverse Reaction, Intermediate, STOMACH BLEED, ) norfloxacin (Verified Adverse Reaction, Unknown, GI INTOLERANCE, 09/11/07) trovafloxacin (Verified Adverse Reaction, Unknown, GI INTOLERANCE, 09/11/07) Home Medication List Reviewed: Yes Exam-Cardiology Vital Signs Vital Signs Date Time Temp Pulse Resp B/P (MAP) Pulse Ox O2 Delivery O2 Flow Rate FiO2 11/28/17 13:02 100 11/28/17 12:23 98 Room Air 11/28/17 09:42 120/82 (95) Exam General Appearance: Alert, Oriented X3, Cooperative, No Acute Distress HEENT: Atraumatic, PERRLA Respiratory: Clear to Auscultation, Normal Air Movement Cardiovascular: No Murmurs, Other (irregularly irregular, tachycardic) Abdominal: Normal Bowel Sounds Extremities: No Clubbing, No Cyanosis, No Edema Skin: No Rashes, No Significant Lesion Neuro: Normal Gait, Normal Speech Psych/Mental Status: Mental Status NL, Mood NL A/P-Cardiology Admission Diagnosis Afib with RVR CAD HTN HLP Admission Status: Observation Assessment/Plan Afib with RVR, patient has history of paroxysmal atrial fibrillation. Patient was noted to have increased episodes of atrial fib ablation on her Linq device over the past month. Currently maintained on Xarelto and digoxin. Came in for stress test this morning with resting HR in the 130's. Admits to having increase in fatigue and dyspnea over the past week. Patient has been admitted to ICU for further evaluation. Patient has been referred to Dr. Zapien for discussion of possible ablation,appt made for January 06, 2018. Coronary artery disease, history of stent using 3.5x15 mm resolute drug-eluting stent to the LAD expanded to 3.86 mm with excellent results. Most recent cardiac catheterization October 2013 revealed patent stent to the LAD with otherwise moderate disease in the distal LAD. Very small artery distally. Otherwise, no significant obstructive disease. Had an exercise stress echo in October 2015 which showed hypertensive response with normal echocardiographic images with no ischemic changes, unable to tolerate aspirin. Underwent stress test this morning, abnormal stress test with anteroapical and anterolateral mild ischemia, planning for left heart catheterization possible PTCA. Hold metformin and hold Xarelto in preparation for the procedure [id number] score is 4, yearly risk of stroke without oral anticoagulation is 4 percent, currently on Xarelto. Hypertension, patient reports episodes of hypotension at home. Has been intolerant to Lopressor 12.5mg BID in the past secondary to dizziness and hypotension. Continue to monitor blood pressure. Hyperlipidemia, unable to tolerate simvastatin, continue to monitor lipids Mild bilateral carotid stenosis, last duplex done 2014 revealed nonobstructive disease bilaterally. History of GI bleed, intolerance to aggressive oral anticoagulations including aspirin and Plavix and Coumadin. Currently maintained on Xarelto. Continue to monitor. Anemia-hemoglobin 10.2 per lab workup last week. Patient is concerned given her history of GI bleed. We will continue her on Xarelto at this time and continue to monitor closely. Denies any blood in her stool. I will evaluate CBC Hypothyroidism, Monitored and managed by primary care physician Pulmonary nodule, noted on CT scan, followed by Dr. Mcmullen COPD, bronchial asthma, allergy, followed by Dr. Mcmullen Diabetes mellitus, managed and followed by primary care physician. Anxiety, currently stable This is Alysia Dia PA-C, acting as a scribe for Dr. Aguilar. This is Dr. Aguilar, I have seen and evaluated the patient with Alysia, she is admitted with atrial fibrillation with ventricular response started on verapamil IV and digoxin IV, heart rate is slightly better. I will continue monitoring closely, her stress test is abnormal and I am planning to proceed with left heart catheterization possible PTCA. On examination lungs are clear to auscultation bilaterally, heart is irregular. I interviewed the patient and examine the patient with Alysia, I agree with the current scribe, I made a few minor modifications using Italic Font ALYSIA VERGARA November 28, 2017 11:29 LEANNA AGUILAR MD November 28, 2017 15:42
[2017-11-28] MEDS ORDERED: MAG CARB PO PRN (14:15)
[2017-11-28] MEDS ORDERED: ALPRAZolam 0.25 MG (XANAX) TAB PO PRN (14:15)
[2017-11-28] MEDS ORDERED: MONTELUKAST 10 MG (SINGULAIR) TAB PO PRN (14:15)
[2017-11-28] MEDS ORDERED: [UNRECOGNIZED DRUG - OTHER] PO PRN (14:15)
[2017-11-28] MEDS ORDERED: ACCUFLORA PO PRN (14:15)
[2017-11-28] MEDS ORDERED: ALGINIC AC PO PRN (14:15)
[2017-11-28] MEDS ORDERED: HYOSCYAMINE SULFATE 0.125 MG PO PRN (14:15)
[2017-11-28] MEDS ORDERED: AL HYDROX PO PRN (14:15)
[2017-11-28] MEDS ORDERED: RT-ALBUTEROL SULF 2.5 MG/3 ML PRE-MIX VIAL INH PRN (14:15)
[2017-11-28] MEDS ORDERED: SUCRALFATE 1 GM (CARAFATE) TAB PO PRN (14:15)
[2017-11-28] MEDS ORDERED: NON-FORMULARY MEDICATION 1 EA EA (Budesonide/Formoterol Fumarate (Symbicort 160-4.5 Mcg In IH PRN (14:15)
[2017-11-28] MEDS ORDERED: PANTOPRAZOLE 40 MG (PROTONIX) TAB PO PRN (14:15)
[2017-11-28] MEDS ORDERED: RT-ALBUTEROL SULF 2.5 MG/3 ML PRE-MIX VIAL IH PRN (14:15)
[2017-11-28] MEDS ORDERED: DIGOXIN 0.25 MG/ML (LANOXIN) 2 ML AMP IV ONE (14:15)
[2017-11-28] MEDS ORDERED: DIGOXIN 0.25 MG/ML (LANOXIN) 2 ML AMP ONE (14:40)
[2017-11-28] MEDS ORDERED: PATIENT MAY USE OWN MEDS, ALL MC SCH (15:00)
[2017-11-28] MEDS ORDERED: HYOSCYAMINE 0.125 MG (LEVSIN) TAB SL PRN (15:30)
[2017-11-28] MEDS ORDERED: ANTACID SUSP 30 ML UDC (MYLANTA) PO PRN (15:30)
[2017-11-28] MEDS ORDERED: RT-ADVAIR HFA 115/21 MCG PER PUFF IH PRN (15:30)
[2017-11-28] MEDS ORDERED: LACTOBACILLUS Acidoph/Bulgar (LACTINEX/FLORANEX) TAB PO PRN (15:45)
[2017-11-28] MEDS ORDERED: metFORMIN 500 MG (GLUCOPHAGE) TAB PO SCH (17:00)
[2017-11-28] MEDS ORDERED: glipiZIDE 5 MG (GLUCOTROL) TAB PO SCH (17:00)
[2017-11-28] MEDS ORDERED: RIVAROXABAN 20 MG TABLET (XARELTO) PO SCH ×2 (17:00)
[2017-11-28] MEDS: glipiZIDE 5 MG (GLUCOTROL) TAB PO SCH (17:36)
--- NOTE | 2017-11-28 18:23 | STRESS TEST ---
DATE OF SERVICE: 11/28/2017 LEXISCAN MYOVIEW STRESS TEST REPORT REFERRING PHYSICIAN: Dr. Elaine. Baseline heart rate is 117. Baseline blood pressure 156/86. Baseline EKG is atrial fibrillation with rapid ventricular response. In summary, the patient was injected with 10.29 mCi of technetium-99 Myoview and the resting images were obtained. Then, the patient received 0.4 mg of Lexiscan followed by 30.5 mCi of technetium-99 Myoview. Throughout the test, there were no EKG changes. After the stress test, I gave the patient 5 mg of IV Lopressor without significant improvement in her heart rate. It came down to 100 beat per minute. Blood pressure was 120/82. The resting and stress images were reviewed and compared in the short axis, horizontal long axis, and vertical long axis views. Review of the images showed breast attenuation with mild decreased uptake at the anteroapical and anterolateral wall of the left ventricle with mild reversibility. SSS 5, SDS 5, TID value 1.02. On the gated images, the left ventricle appeared to be in normal size with normal contractility. Calculated ejection fraction 57%. CONCLUSION: 1. The patient tolerated Lexiscan well. 2. Baseline tachycardia persisted throughout test. 3. Breast attenuation affecting the quality of the images with mild ischemia involving the anteroapical and anterolateral wall. 4. Normal left ventricular size with normal contractility. Calculated ejection fraction 57%. Job ID: [id number] DocumentID: [id number] Dictated Date: 11/28/2017 15:24:11 Statuary Painter Date: 11/28/2017 18:23:15 Dictated By: LEANNA DSOUZA MD
[2017-11-28] MEDS: DIGOXIN 0.25 MG (LANOXIN) TAB PO SCH (20:43)
[2017-11-28] MEDS ORDERED: DIGOXIN 0.25 MG (LANOXIN) TAB PO SCH (21:00)
[2017-11-28] MEDS ORDERED: NON-FORMULARY MEDICATION 1 EA EA (Metformin HCl 1,000 MG) PO SCH (21:00)
[2017-11-29] VITALS (28 sets, daily range): BP systolic 105–147; BP diastolic 62–105
[2017-11-29 05:02] LABS: HEMOGLOBIN 10.3 G/DL (11.5-16.0); MEAN PLATELET VOLUME 10.2 FL (7.4-10.4); RED BLOOD COUNT 4.35 10^6/uL (4.35-5.85); RED CELL DISTRIBUTION WIDTH 15.8 % (10.0-14.5); WHITE BLOOD COUNT 7.2 10^3/uL (4.3-11.0)
[2017-11-29 05:23] LABS: INR 1.1 (0.8-1.4); PROTHROMBIN TIME PATIENT 14.1 SEC (12.2-14.7)
[2017-11-29 05:28] LABS: ALANINE AMINOTRANSFERASE 15 U/L (0-55); ALBUMIN 3.7 GM/DL (3.2-4.5); ALKALINE PHOSPHATASE 50 U/L (40-136); BILIRUBIN,TOTAL 0.6 MG/DL (0.1-1.0); BUN/CREATININE RATIO 18; CALCIUM 9.3 MG/DL (8.5-10.1); CARBON DIOXIDE 24 MMOL/L (21-32); CHLORIDE 107 MMOL/L (98-107); CREATININE SERUM 0.67 MG/DL (0.60-1.30); GFR ESTIMATED > 60; GLUCOSE 123 MG/DL (70-105); POTASSIUM 4.1 MMOL/L (3.6-5.0); SODIUM 142 MMOL/L (135-145); TOTAL PROTEIN 5.9 GM/DL (6.4-8.2)
[2017-11-29 05:50] LABS: DIGOXIN 1.39 NG/ML (0.80-2.00)
[2017-11-29] MEDS ORDERED: LEVOTHYROXINE 88 MCG (LEVOTHORID) TAB PO SCH ×2 (06:30)
[2017-11-29] MEDS: glipiZIDE 5 MG (GLUCOTROL) TAB PO SCH ×2 (06:34→19:29)
[2017-11-29] MEDS ORDERED: OMEGA 3 (FISH OIL) 1000 MG CAP PO SCH (07:00)
[2017-11-29] MEDS ORDERED: MULTIVIT W/MINERALS TAB (THERAGRAN M) PO SCH (07:00)
[2017-11-29] MEDS ORDERED: HEParin DRIP 25000 UNIT/500ML 500 ML IV SCH (07:04)
--- NOTE | 2017-11-29 07:10 | Cardiology Progress Note ---
Subjective Date Seen by Provider: November 29, 2017 Time Seen by Provider: 07:09 Subjective/Events-last exam Patient is in bed, feeling well, no chest pain, still in atrial fibrillations Review of Systems General: No Chills, No Night Sweats, No Fatigue, No Malaise, No Appetite, No Other HEENT: No Head Aches, No Visual Changes, No Eye Pain, No Ear Pain, No Dysphasia , No Sinus Congestion, No Post Nasal Drip, No Sore Throat, No Other Pulmonary: No Dyspnea, No Cough, No Pleuritic Chest Pain, No Other Cardiovascular: No: Chest Pain, Palpitations, Orthopnea, Paroxysmal Noc. Dyspnea, Edema, Lt Headedness, Other Objective-Cardiology Exam Last Set of Vital Signs Vital Signs 11/29/17 11/29/17 04:00 06:00 Temp 97.9 Pulse 94 Resp 14 B/P (MAP) 127/82 (97) Pulse Ox 96 O2 Delivery Room Air Capillary Refill : I&O Intake and Output 11/29/17 00:00 Intake Total 1250 ml Balance 1250 ml Intake Oral 1250 ml # Voids 8 General: Alert, Oriented X3, Cooperative, No Acute Distress HEENT: Atraumatic, PERRLA Lungs: Clear to Auscultation, Normal Air Movement Heart: Normal S1, Normal S2, No Murmurs, Other (irregularly irregular, tachycardic) Abdomen: Normal Bowel Sounds Extremities: No Clubbing, No Cyanosis, No Edema Skin: No Rashes, No Significant Lesion Neuro: Normal Gait, Normal Speech Psych/Mental Status: Mental Status NL, Mood NL Results Lab Laboratory Tests 11/29/17 03:28 A/P-Cardiology Admission Diagnosis Afib with RVR CAD HTN HLP Assessment/Plan Afib with RVR, patient has history of paroxysmal atrial fibrillation. Patient was noted to have increased episodes of atrial fib ablation on her Linq device over the past month. Currently maintained on Xarelto and digoxin. Came in for stress test this morning with resting HR in the 130's. Admits to having increase in fatigue and dyspnea over the past week. Patient has been admitted to ICU for further evaluation. Patient has been referred to Dr. Zapien for discussion of possible ablation,appt made for December 07, 2017. Add Cardizem for now Coronary artery disease, history of stent using 3.5x15 mm resolute drug-eluting stent to the LAD expanded to 3.86 mm with excellent results. Most recent cardiac catheterization October 2013 revealed patent stent to the LAD with otherwise moderate disease in the distal LAD. Very small artery distally. Otherwise, no significant obstructive disease. Had an exercise stress echo in October 2015 which showed hypertensive response with normal echocardiographic images with no ischemic changes, unable to tolerate aspirin. Underwent stress test this morning, abnormal stress test with anteroapical and anterolateral mild ischemia, planning for left heart catheterization possible PTCA. Hold metformin and hold Xarelto in preparation for the procedure [id number] score is 4, yearly risk of stroke without oral anticoagulation is 4 percent, currently on Xarelto. Hypertension, patient reports episodes of hypotension at home. Has been intolerant to Lopressor 12.5mg BID in the past secondary to dizziness and hypotension. Continue to monitor blood pressure. Hyperlipidemia, unable to tolerate simvastatin, continue to monitor lipids Mild bilateral carotid stenosis, last duplex done 2014 revealed nonobstructive disease bilaterally. History of GI bleed, intolerance to aggressive oral anticoagulations including aspirin and Plavix and Coumadin. Currently maintained on Xarelto. Continue to monitor. Anemia-hemoglobin 10.2 per lab workup last week. Patient is concerned given her history of GI bleed. We will continue her on Xarelto at this time and continue to monitor closely. Denies any blood in her stool. I will evaluate CBC Hypothyroidism, Monitored and managed by primary care physician Pulmonary nodule, noted on CT scan, followed by Dr. Mcmullen COPD, bronchial asthma, allergy, followed by Dr. Mcmullen Diabetes mellitus, managed and followed by primary care physician. Anxiety, currently stable This is Alysia Dia PA-C, acting as a scribe for Dr. Aguilar. This is Dr. Aguilar, I have seen and evaluated the patient with Alysia, she is admitted with atrial fibrillation with ventricular response started on verapamil IV and digoxin IV, heart rate is slightly better. I will continue monitoring closely, her stress test is abnormal and I am planning to proceed with left heart catheterization possible PTCA. On examination lungs are clear to auscultation bilaterally, heart is irregular. I interviewed the patient and examine the patient with Alysia, I agree with the current scribe, I made a few minor modifications using Italic Font LEANNA AGUILAR MD November 29, 2017 07:10
[2017-11-29] MEDS ORDERED: HEParin 1000 UNIT/ML (10ML VIAL) FOR BOLUS IV PRN (07:15)
[2017-11-29] MEDS ORDERED: BREO ELLIPTA IH SCH (08:00)
[2017-11-29] MEDS ORDERED: metFORMIN 500 MG (GLUCOPHAGE) TAB PO SCH (08:00)
[2017-11-29] MEDS ORDERED: DILTIAZEM 120 MG (CARDIZEM CD) CAP PO SCH (09:00)
[2017-11-29] MEDS ORDERED: NON-FORMULARY MEDICATION 1 EA EA (Multivitamin (Daily Multiple Vitamin) 1 TAB) PO SCH (09:00)
[2017-11-29] MEDS ORDERED: NON-FORMULARY MEDICATION 1 EA EA (Fluticasone/Vilanterol (Breo Ellipta 100-25 Mcg INH) 1 P INH SCH (09:00)
[2017-11-29] MEDS ORDERED: [UNRECOGNIZED DRUG - OTHER] PO SCH (09:00)
[2017-11-29] MEDS ORDERED: HEParin (CATH LAB) 2,000 ML IV ONE (09:03)
[2017-11-29] MEDS ORDERED: LIDOCAINE 1% INJ 20 ML 20 ML VIAL ONE ×2 (09:03→15:57)
[2017-11-29] MEDS ORDERED: MIDAZOLAM 5 MG/5 ML (VERSED) VIAL ONE (16:04)
[2017-11-29] MEDS ORDERED: fentaNYL INJECTION 100 MCG/2 ML AMP ONE (16:05)
[2017-11-29] MEDS ORDERED: NS IV 1000 ML 1,000 ML ONE (16:11)
--- NOTE | 2017-11-29 16:34 | Cardiac Procedure Note-CS/ASA ---
Pre-Procedure Note Pre-Op Procedure Note H&P Reviewed The H&P was reviewed, patient examined and no changes noted. Date H&P Reviewed: November 29, 2017 Time H&P Reviewed: 16:34 Conscious Sedation Pre-Proced Time Reviewed: 16:34 ASA Class: 3 Airway Mallampati Classification: (la posta appropriate class) I. II. III, IV Lungs Heart ASA score ASA 1: a normal healthy patient ASA 2: a patient with a mild systemic disease (mid diabetes, controlled hypertension, obesity x ASA 3: a patient with a severe systemic disease that limits activity (angina , COPD, prior Myocardial infarction) ASA 4: a patient with an incapacitating disease that is a constant threat to life (CHF, renal failure) ASA 5: a moribund patient not expected to survive 24 hrs. (ruptured aneurysm) ASA 6: a declared brain patient whose organs are being harvested. For emergent operations, add the letter E after the classification Grade 3 Sedation Plan: Analgesia, Amnesia, Plan communicated to team members, Discussed options with patient/fam, Discussed risks with patient/fam Note The patient is an appropriate candidate to undergo the planned procedure, sedation, and anesthesia. The patient immediately re-assessed prior to indication. LEANNA DSOUZA MD November 29, 2017 16:34
[2017-11-29] MEDS ORDERED: NS IV 1000 ML 1,000 ML IV SCH (16:35)
[2017-11-29] MEDS ORDERED: DILT120C63 PO (16:37)
--- NOTE | 2017-11-29 16:38 | Discharge Inst-Post CATH ---
Discharge Inst-CATH Post Cardiac Cath D/C Inst Follow Up/Plan Appointment with Dr. Aguilar's office in one to 2 weeks CARDIAC CATH DISCHARGE INSTRUCTIONS *Hold Metformin for 48 hours post heart cath. ACTIVITY * Go Home directly and rest. * Limit activity of the leg (or wrist if it was used) for 7 days including aerobics, swimming, jogging, bicycling, etc. * Restrict stair-climbing for 7 days if possible, if not, climb up with your non -cath leg, then bring together on the same step. * Avoid lifting, pushing, pulling or excessive movement of the affected extremity for 7 days. * Customary sexual activity may be resumed after 2 days-use caution not to use a position that strains or causes pain to the affected extremity. * No driving for 24 hours. * NO SMOKING. * Avoid straining for bowel movements for 7 days. * Gentle walking on level ground is allowed. * Returning to work will depend on the type of procedure and the results. Your doctor will discuss this with you. CALL YOUR DOCTOR FOR ANY OF THE FOLLOWING: *If bleeding from the puncture site occurs- Apply gentle pressure to site with clean cloth and call your doctor or EMS. * If a knot or lump forms under the skin, increases in size, or causes pain. * If bruising appears to be worsening or moving further down your leg instead of disappearing. * Temperature above 101 F. CARE OF YOUR GROIN INCISION; * Bruising or purple discoloration of the skin near the puncture site is common. * You may shower only, no bathtub bathing for 5 days. Be careful to avoid slipping as your leg may feel stiff. * If a closure device was used on your femoral artery, please see the attached guide regarding care of the device and your leg. * REMOVE the dressing from your groin the next day after your procedure in the shower. CARE OF YOUR WRIST INCISION; * Bruising or purple discoloration of the skin near the puncture site is common. * You may shower. * DO NOT submerge wrist. * Remove dressing in 24 hours. LEANNA AGUILAR MD November 29, 2017 16:38
--- NOTE | 2017-11-29 16:41 | Cardiac Cath Report ---
Cardiac Cath Report Physician (s)/Cut Off Machine Helper (s) Physician LEANNA DSOUZA MD Pre-Procedure Diagnosis Pre-Procedure Diagnosis: Coronary artery disease Post-Procedure Note Procedure Start Date: November 29, 2017 Name of Procedure: Left heart catheterization Findings/Procedure Note PROCEDURE NOTE: After explaining the procedure to the patient, all pros and cons were explained , all questions were answered. The patient signed the consent and then she was placed on the cardiac catheterization laboratory. Groin was prepped SL fashion local anesthesia was used. Sheath placed in the right femoral artery. Emil right and left catheter were used to access the coronary system. JR catheter was advanced left ventricular cavity, pressure was measured, no left ventriculogram was done. Pullback of the total aorta was measured At the end of the procedure the sheath was removed. Closure device was used FINDINGS: Hemodynamics LV 109/11, end-diastolic pressure of 11 Aorta 126/67 mean of 85 ANATOMY: Left Main free of obstructive disease Left Anterior Descending has patent stent proximally, small vessel disease distally Left Circumflex is dominant with mild disease nonobstructive disease Right Coronory Artery is codominant with mild disease nonobstructive disease LV Gram was not done, pressure was measured CONCLUSION: 1. Patent stent in the proximal LAD with small vessel disease distally, mild coronary artery disease nonobstructive disease 2. Normal left ventricular end-diastolic pressure DISCUSSION AND RECOMMENDATION: Medical therapy is recommended no intervention is needed Anesthesia Type: Conscious Sedation Estimated blood loss (mL): 10 ml Contrast Amount: 36 ml Total Radiation Dose: 337 mGy Post-Procedure Diagnosis Post-operative diagnosis: Coronary artery disease Atrial fibrillation Tachycardia Hypertension LEANNA DSOUZA MD November 29, 2017 16:40
[2017-11-29] MEDS ORDERED: PATIENT MAY USE OWN MEDS, ALL PO SCH (16:45)
[2017-11-29] MEDS: DIGOXIN 0.25 MG (LANOXIN) TAB PO SCH (21:00)
--- OUTSIDE RECORDS SUMMARY | 2017-12-04 12:11 | XMS REPORT | Encounter Summary ---
Author Author [facility] Organization [facility] Address Unknown Phone Unavailable Care Team Providers Care Director Of People Name Role Phone PCP Unavailable Reason for Referral * Consult, Test & Treat (Routine) Status Reason Specialty Diagnoses / Referred By Referred To Procedures Contact Contact New Request Specialty Cardiology Diagnoses Karie Aguilar, Rupali, Doug P, Services PAF (paroxysmal MD REINA Required atrial [address] [facility] [address] fibrillation) [address] (HCC) [place] [id number] Phone: Fax: Encounter Details Date Type Department Care Team Description 11/26/2017 Orders Only MAC-REFERRAL Lois Pathak PAF (paroxysmal atrial fibrillation) ([facility]) (Primary Dx) Social History Tobacco Use Types Packs/Day Years Used Date Never Smoker Smokeless Tobacco: Never Used Alcohol Use Drinks/Week oz/Week Comments No Sex Assigned at Date Recorded Not on file as of this encounter Plan of Treatment Name Priority Associated Diagnoses Order Schedule AMB REFERRAL TO ADULT CARDIOLOGY Routine PAF (paroxysmal atrial Ordered : 11/26/2017 fibrillation) ([facility]) as of this encounter Visit Diagnoses Diagnosis PAF (paroxysmal atrial fibrillation) ([facility]) - Primary Atrial fibrillation
--- OUTSIDE RECORDS SUMMARY | 2017-12-04 12:11 | XMS REPORT | Encounter Summary ---
Author Author [facility] Organization [facility] Address Unknown Phone Unavailable Care Team Providers Care Elderly Sitter Name Role Phone PCP Unavailable Reason for Visit * Reason Comments New Patient PAF (paroxysmal atrial fibrillation) ([facility]) [I48.0] Encounter Details Date Type Department Care Team Description 11/26/2017 Patient Profile [facility] Card[facility] Maira Gibson New Patient ( PAF [address] (paroxysmal atrial Tarik [address] fibrillation) ([facility]) [place] [address] [I48.0] ) [phone] Social History Tobacco Use Types Packs/Day Years [...]
--- OUTSIDE RECORDS SUMMARY | 2017-12-04 12:11 | XMS REPORT | Clinical Summary ---
Author Author [facility] Organization [facility] Address Unknown Phone Unavailable Care Team Providers Care Manager Managed Backup Services Name Role Phone PCP Unavailable Source Comments Some departments are not documenting in the electronic medical record. If you do not see the information that you expected, contact Release of Information in the Health Information Management department at [phone] for further assistance in locating additional records.[facility] Allergies Active Allergy Reactions Severity Noted [...] tablet hours. Take on an empty stomach. Wbtxc-[id number]-EPA-Fish Oil Take by mouth. Active 1,200 (144-216) [...] New Patient ( PAF (paroxysmal atrial fibrillation) ([facility]) [I48.0] ) 11/26/2017 Orders Only Cardiology Lois Pathak PAF (paroxysmal atrial fibrillation) ([facility]) (Primary Dx) 11/26/2017 Orders Only Cardiology Lois [...] 1957 SHINGLES VACCINE 2001 OSTEOPOROSIS SCREENING 2006 PNEUMONIA (PCV13/PPSV23) 2006 VACCINES (1 of 2 - PCV13) INFLUENZA VACCINE 04/08/2018 Results Not on filefrom Last 3 Months
--- OUTSIDE RECORDS SUMMARY | 2017-12-04 12:11 | XMS REPORT | Encounter Summary ---
Author Author [facility] Organization [facility] Address Unknown Phone Unavailable Care Team Providers Care Sand Carrier Name Role Phone PCP Unavailable Reason for Visit * Reason Comments Records Request records received Encounter Details Date Type Department Care Team Description 11/26/2017 Telephone [facility] Opal Dooley Records Request (records [id number]) [place] [address] Social History Tobacco Use Types [...] have been requested from [facility] in [place], [place]. Opal Dooley ----- Message from Viridiana Romero sent at 11/26/2017 11:36 AM CDT ----- Regarding: please request recs/patient provided information/Thanks Guerline Name: BLACK JJ Date: 12/07/2017 Status: [facility] Time: 8:30 AM Length: 30 Visit Type: NEW PATIENT [4010] Provider: Doug Zapien MD Department: [facility] Hosp: yes at [facility] [phone] (recs requested) in this encounter Plan of Treatment Not on fileas of this encounter Visit Diagnoses Not on filein this encounter
--- OUTSIDE RECORDS SUMMARY | 2017-12-04 12:11 | XMS REPORT | Encounter Summary ---
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
[2017-12-12] MEDS ORDERED: FLUT9.9S NS (15:17)
[2017-12-12] MEDS ORDERED: MECL-106 PO (15:19)
[2017-12-14] MEDS ORDERED: AMIO200T2 PO (13:25)
== END 2017-11-29 16:37 | disposition home or self-care (01) ==
LOC: ICU 10:35 → CATH 10:35 → UNDOADMOB 10:35 → ICU 10:35 → UNDOADMOB 10:48 → ICU 10:48 → CATH 11-29 16:37 → ICU 11-29 17:41 → UNDODISOB 11-29 22:40
PROVIDERS: ATTEND Internal Medicine Cardiovascular Disease
DX: I25.10 Atherosclerotic heart disease of native coronary artery without angina pectoris (principal); I48.91 Unspecified atrial fibrillation; R00.0 Tachycardia, unspecified; I10 Essential (primary) hypertension; E78.5 Hyperlipidemia, unspecified; I65.23 Occlusion and stenosis of bilateral carotid arteries; D64.9 Anemia, unspecified; E03.9 Hypothyroidism, unspecified; R91.1 Solitary pulmonary nodule; J44.9 Chronic obstructive pulmonary disease, unspecified; E11.9 Type 2 diabetes mellitus without complications; F41.9 Anxiety disorder, unspecified; Z86.718 Personal history of other venous thrombosis and embolism; Z95.5 Presence of coronary angioplasty implant and graft; Z88.1 Allergy status to other antibiotic agents; Z88.8 Allergy status to other drugs, medicaments and biological substances
CPT/HCPCS: 36415; 78452; 80053; 80162; 82962; 84443; 85027; 85610; 85730; 93017; 93458; 99211; G0378

== ENCOUNTER 2017-12-21 12:50 | Outpatient (RCR) | payer MEDICARE, OTHER ==
[2017-12-12 12:45] VITALS: BP 133/59
[2017-12-12] MEDS: IRON SUCROSE 200 MG/10 ML (VENOFER) VIAL IV SCH (13:35)
[2017-12-12] MEDS: diphenhydrAMINE 50 MG/ML INJ (BENADRYL) IV SCH (13:36)
[2017-12-12] MEDS: ACETAMINOPHEN 325 MG TABLET/CAPLET (TYLENOL) PO SCH (13:36)
[2017-12-14] MEDS: IRON SUCROSE 200 MG/10 ML (VENOFER) VIAL IV SCH (13:23)
[2017-12-14 13:26] VITALS: BP 108/67
[2017-12-17 12:55] VITALS: BP 133/73
[2017-12-17] MEDS: IRON SUCROSE 200 MG/10 ML (VENOFER) VIAL IV SCH (13:02)
[2017-12-17] MEDS: diphenhydrAMINE 50 MG/ML INJ (BENADRYL) IV SCH (13:03)
[2017-12-17] MEDS: ACETAMINOPHEN 325 MG TABLET/CAPLET (TYLENOL) PO SCH (13:03)
[2017-12-19 13:00] VITALS: BP 143/78
[2017-12-19] MEDS: IRON SUCROSE 200 MG/10 ML (VENOFER) VIAL IV SCH (13:11)
[~2017-12-21] VITALS: Ht 162.6 cm; Wt 66.7 kg
[~2017-12-21 12:50] MED LIST changes: +AMIO200T2 PO; -CATHETER FLUSH 10 ML SYR IV PRN; +DILT120C63 PO; +FLUT9.9S NS; +MECL-106 PO; -REGADENOSON 0.4 MG/5 ML SYR (LEXISCAN) IV ONE; -meTOprolol 5 MG/5 ML (LOPRESSOR) VIAL IV ONE; -meTOprolol 5 MG/5 ML (LOPRESSOR) VIAL ONE
[2017-12-21] MEDS: IRON SUCROSE 200 MG/10 ML (VENOFER) VIAL IV SCH (13:05)
[2017-12-21] MEDS: ACETAMINOPHEN 325 MG TABLET/CAPLET (TYLENOL) PO SCH (13:20)
[2017-12-21] MEDS: diphenhydrAMINE 50 MG/ML INJ (BENADRYL) IV SCH (13:20)
[2017-12-21 13:40] VITALS: BP 137/58
== END 2017-12-21 13:48 | disposition home or self-care (01) ==
LOC: SDC 12:50
PROVIDERS: ATTEND Family Medicine
DX: D50.9 Iron deficiency anemia, unspecified (principal)
CPT/HCPCS: 96365

== ENCOUNTER 2018-02-01 09:32 | Observation (INO) | payer MEDICARE, OTHER ==
[~2018-02-01] VITALS: Ht 154.9 cm; Wt 65.5 kg
[2018-02-01] VITALS (10 sets, daily range): BP systolic 98–122; BP diastolic 61–96
[~2018-02-01 09:32] MED LIST changes: -AMIO200T2 PO; +AMIO200T4 PO
[2018-02-01 09:58] LABS: BASOPHILS # (AUTO) 0.1 10^3/uL (0.0-0.1); BASOPHILS % (AUTO) 1 % (0-10); EOSINOPHILS # (AUTO) 0.3 10^3/uL (0.0-0.3); EOSINOPHILS % (AUTO) 3 % (0-10); HEMATOCRIT 42 % (35-52); HEMOGLOBIN 12.9 G/DL (11.5-16.0); LYMPHOCYTES # (AUTO) 1.2 X 10^3 (1.0-4.0); LYMPHOCYTES % (AUTO) 15 % (12-44); MEAN CORPUSCULAR HEMOGLOBIN 27 PG (25-34); MEAN CORPUSCULAR HGB CONC 31 G/DL (32-36); MEAN CORPUSCULAR VOLUME 86 FL (80-99); MEAN PLATELET VOLUME 10.4 FL (7.4-10.4); MONOCYTES # (AUTO) 0.8 X 10^3 (0.0-1.0); MONOCYTES % (AUTO) 10 % (0-12); NEUTROPHILS # (AUTO) 5.5 X 10^3 (1.8-7.8); NEUTROPHILS % (AUTO) 70 % (42-75); PLATELET COUNT 301 10^3/uL (130-400); RED BLOOD COUNT 4.83 10^6/uL (4.35-5.85); RED CELL DISTRIBUTION WIDTH 23.2 % (10.0-14.5); WHITE BLOOD COUNT 7.8 10^3/uL (4.3-11.0)
[2018-02-01 10:06] LABS: INR 2.1 (0.8-1.4)
[2018-02-01 10:18] LABS: ALANINE AMINOTRANSFERASE 22 U/L (0-55); ALBUMIN 4.4 GM/DL (3.2-4.5); ALKALINE PHOSPHATASE 71 U/L (40-136); BILIRUBIN,TOTAL 0.8 MG/DL (0.1-1.0); BUN/CREATININE RATIO 20; CALCIUM 9.8 MG/DL (8.5-10.1); CARBON DIOXIDE 26 MMOL/L (21-32); CHLORIDE 108 MMOL/L (98-107); CREATININE SERUM 0.97 MG/DL (0.60-1.30); GFR ESTIMATED 56; GLUCOSE 153 MG/DL (70-105); MAGNESIUM 1.9 MG/DL (1.8-2.4); SODIUM 143 MMOL/L (135-145); TOTAL PROTEIN 6.6 GM/DL (6.4-8.2)
--- NOTE | 2018-02-01 10:24 | Diagnostic Imaging Report ---
INDICATION: Chest pain. Shortness of air. COMPARISON: 09/12/2017 FINDINGS: Single frontal view of the chest demonstrates mild enlargement of the cardiac silhouette and mild prominence of the pulmonary vasculature. The lungs are well aerated and clear. No large pleural effusion or pneumothorax is seen. The visualized osseous structures show no acute abnormalities. IMPRESSION: 1. Mild cardiomegaly and pulmonary vascular congestion. Dictated by: Dictated on workstation # [id number]
[2018-02-01 10:27] LABS: MYOGLOBIN SERUM 91.6 NG/ML (10.0-92.0)
[2018-02-01 10:42] LABS: FREE T4 (FREE THYROXINE) 1.62 NG/DL (0.70-1.48)
--- NOTE | 2018-02-01 12:23 | ED Cardiac General ---
History of Present Illness General Chief Complaint: Cardiac/General Problems Stated Complaint: CHEST PAIN,SOB Nursing Triage Note: pt presents to ed with complaints of palpitations, tachycardia, and irregular heart rate. pt reprots she has a hx of intermitent afib but starting october-november sometime she was in afib all the time. pt has been seen at [facility] and has a link recorder that dr aguilar's office is watching. Pt reports the past couple days HR has been more irregular and beating faster than normal. Pt also reports medial chest tightness starting yesterday. Source: patient, old records Exam Limitations: no limitations History of Present Illness Date Seen by Provider: Feb 01, 2018 Time Seen by Provider: 09:42 Initial Comments This 78-year-old woman presents to the emergency room with tachycardia and chest tightness. She is in chronic atrial fibrillation and is anticoagulated. She contacted Dr. Aguilar's office today and was instructed to come to the emergency room because of a heart rate in the 130s. Heart rate was also erratic. Patient states that is typical for her to experience chest discomfort during tachycardic episodes. She also feels a little short of breath. Patient reports coming off of digoxin in December after a visit to Dr. Jesus at . She reports her amiodarone dose was also decreased recently. She is now on diltiazem. She took her morning dose yesterday. Her heart rate was greater than 100 so she took her evening dose as well as instructed. She then took her morning dose today as well. She remains tachycardic despite taking these 3 doses of Cardizem. Allergies and Home Medications Allergies Coded Allergies: azithromycin (Verified Allergy, Unknown, 06/23/12) cephalexin (Verified Allergy, Unknown, 04/23/06) levofloxacin (Verified Allergy, Unknown, 06/23/12) meloxicam (Verified Allergy, Unknown, 06/23/12) metoprolol (Verified Allergy, Unknown, NECK SPASMS, 10/18/16) metronidazole (Verified Allergy, Unknown, 06/23/12) morphine (Verified Allergy, Unknown, 04/23/06) theophylline (Verified Allergy, Unknown, 04/23/06) prednisone (Verified Adverse Reaction, Intermediate, STOMACH BLEED, ) norfloxacin (Verified Adverse Reaction, Unknown, GI INTOLERANCE, 09/11/07) trovafloxacin (Verified Adverse Reaction, Unknown, GI INTOLERANCE, 09/11/07) Home Medications Albuterol Sulfate 2.5 Mg/3 Ml Vial.neb, 2.5 MG NEB QID PRN for SHORTNESS OF BREATH, (Reported) Albuterol Sulfate 1 Puff Puff, 2 PUFF INH Q4H PRN for SHORTNESS OF BREATH, ( Reported) Alprazolam 0.25 Mg Tablet, 0.25-1 TAB PO Q8H PRN for ANXIETY, (Reported) TAKES 1/4 TO 1 (0.25MG) TABLET Amiodarone HCl 200 Mg Tablet, 100 MG PO BID, (Reported) TAKES 1/2 (200MG) TABLET Bacillus Coagulans 1 Each Tab.chew, 1 TAB.CHEW PO DAILY, (Reported) Budesonide/Formoterol Fumarate 10.2 Gm Hfa.aer.ad, 2 PUFF IH BID PRN for SHORTNESS OF BREATH, (Reported) EITHER USES BREO OR SYMBICROT, DOES NOT USE THEM TOGETHER Diltiazem HCl 120 Mg Cap.er.24h, 120 MG PO BID PRN for HR >100, (Reported) Esomeprazole Magnesium 20 Mg Capsule.dr, 20 MG PO DAILY PRN PRN for HEARTBURN, ( Reported) Fish Oil/Dha/Epa 1 Each Capsule, 1,200 MG PO DAILY, (Reported) Fluticasone/Vilanterol 1 Each Blst.w.dev, 1 PUFF INH DAILY, (Reported) USES EITHER BREO OR SYMBICORT, DOES NOT USE THEM TOGETHER Glipizide 5 Mg Tablet, 2.5 MG PO BID, (Reported) TAKES 1/2 OF A (5 MG) TABLET Hyoscyamine Sulfate 0.125 Mg Tablet, 0.125 MG PO Q6H PRN for SPASMS, (Reported) Levothyroxine Sodium 88 Mcg Tablet, 88 MCG PO DAILY, (Reported) Meclizine HCl 25 Mg Tablet, 25 MG PO UD, (Reported) Montelukast Sodium 10 Mg Tablet, 10 MG PO HS PRN for ALLERGIES/ASTHMA, (Reported ) Multivitamin 1 Each Tablet, 1 TAB PO DAILY, (Reported) Pantoprazole Sodium 40 Mg Tablet.dr, 40 MG PO DAILY PRN for GI UPSET, (Reported) Propylene Glycol/Peg 400 15 Ml Drops, 2 DROPS OU QID PRN for DRY EYES, (Reported ) Rivaroxaban 20 Mg Tablet, 20 MG PO 1700, (Reported) Sucralfate 1 Gm Tablet, 1 GM PO ACHS PRN for GI UPSET, (Reported) DISSOLVE WITH 10ML WATER [Liq Vit B Comp] , 1 APPFUL PO DAILY, (Reported) Patient Home Medication List Home Medication List Reviewed: Yes Review of Systems Constitutional: no symptoms reported EENTM: No Symptoms Reported Respiratory: See HPI Cardiovascular: See HPI Gastrointestinal: No Symptoms Reported Genitourinary: No Symptoms Reported Musculoskeletal: no symptoms reported Skin: no symptoms reported Psychiatric/Neurological: No Symptoms Reported Endocrine: No Symptoms Reported Past Ggjdtac-Ndhlob-Mzsslx Hx Patient Social History Alcohol Use: Denies Use Recreational Drug Use: No Smoking Status: Never a Smoker 2nd Hand Smoke Exposure: No Recent Foreign Travel: No Contact w/Someone Who Travel: No Recent Infectious Disease Expo: No Recent Hopitalizations: No Physical Abuse: No Sexual Abuse: No Mistreated: No Fear: No Immunizations Up To Date Tetanus Booster (TDap): Unknown Date of Pneumonia Vaccine: Mar 14, 2016 Date of Influenza Vaccine: Apr 08, 2017 Seasonal Allergies Seasonal Allergies: Yes Past Medical History Surgeries: Yes (R Thyroidectomy, Carpal Tunnel, heart stent, r foot, l knee, sinus, loop recorder) Cardiac (loop recorder), Coronary Stent, Gallbladder, Hysterectomy, Orthopedic, Thyroidectomy Respiratory: Yes (asthma) Asthma, Pulmonary Embolism, COPD Currently Using CPAP: No Currently Using BIPAP: No Cardiac: Yes (stents x 3, implanted heart monitor) Atrial Fibrillation, Coronary Artery Disease, Deep Vein Thrombosis, High Cholesterol, Hypertension Neurological: No Reproductive Disorders: No Female Reproductive Disorders: Denies Sexually Transmitted Disease: No HIV/AIDS: No Genitourinary: No Gastrointestinal: Yes (stomach bleeds) Gastroesophageal Reflux, Gastrointestinal Bleed, Chronic Diarrhea, Gall Bladder Disease Musculoskeletal: Yes Arthritis, Rheumatoid Arthritis Endocrine: Yes (right thyroidectomy) Hypothyroidsim, Diabetes, Non-Insulin dep HEENT: Yes Cataract Loss of Vision: Denies Hearing Impairment: Denies Cancer: No Psychosocial: Yes Anxiety Nursing Suicide Risk Score: 0 Integumentary: No Blood Disorders: Yes Adverse Reaction/Blood Tranf: No Family Medical History Arthritis 19 FATHER G8 SISTER Congenital heart disease 19 MOTHER G8 BROTHER Diabetes mellitus G8 BROTHER FH: CHF (congestive heart failure) 19 FATHER 19 MOTHER G8 BROTHER FH: CVA (cerebrovascular accident) 19 MOTHER G8 SISTER FH: hypercholesterolemia FH: musculoskeletal disease 19 FATHER G8 SISTER Glaucoma G8 SISTER Hypercholesterolemia Hypertension 19 MOTHER G8 SISTER Myocardial infarction G8 BROTHER Heart Disease, Hypertension Physical Exam Vital Signs Vital Signs - First Documented 02/01/18 09:55 Temp 98.2 Pulse 96 Resp 14 B/P (MAP) 134/92 (106) Pulse Ox 98 O2 Delivery Room Air Capillary Refill : Less Than 3 Seconds Height, Weight, BMI Height: 5'1.00" Weight: 147lbs. 0.0oz. 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 Norm as Tested Skin: Normal Color, Warm/Dry Progress/Results/Core Measures Results/Orders Lab Results Laboratory Tests Test 02/01/18 09:44 Range/Units White Blood Count 7.8 4.3-11.0 10^3/uL Red Blood Count 4.83 4.35-5.85 10^6/uL Hemoglobin 12.9 11.5-16.0 G/DL Hematocrit 42 35-52 % Mean Corpuscular Volume 86 80-99 FL Mean Corpuscular Hemoglobin 27 25-34 PG Mean Corpuscular Hemoglobin Concent 31 L 32-36 G/DL Red Cell Distribution Width 23.2 H 10.0-14.5 % Platelet Count 301 130-400 10^3/uL Mean Platelet Volume 10.4 7.4-10.4 FL Neutrophils (%) (Auto) 70 42-75 % Lymphocytes (%) (Auto) 15 12-44 % Monocytes (%) (Auto) 10 0-12 % Eosinophils (%) (Auto) 3 0-10 % Basophils (%) (Auto) 1 0-10 % Neutrophils # (Auto) 5.5 1.8-7.8 X 10^3 Lymphocytes # (Auto) 1.2 1.0-4.0 X 10^3 Monocytes # (Auto) 0.8 0.0-1.0 X 10^3 Eosinophils # (Auto) 0.3 0.0-0.3 10^3/uL Basophils # (Auto) 0.1 0.0-0.1 10^3/uL Prothrombin Time 24.0 H 12.2-14.7 SEC INR Comment 2.1 H 0.8-1.4 Activated Partial Thromboplast Time 36 H 24-35 SEC Sodium Level 143 135-145 MMOL/L Potassium Level 4.0 3.6-5.0 MMOL/L Chloride Level 108 H 98-107 MMOL/L Carbon Dioxide Level 26 21-32 MMOL/L Anion Gap 9 5-14 MMOL/L Blood Urea Nitrogen 19 H 7-18 MG/DL Creatinine 0.97 0.60-1.30 MG/DL Estimat Glomerular Filtration Rate 56 BUN/Creatinine Ratio 20 Glucose Level 153 H 70-105 MG/DL Calcium Level 9.8 8.5-10.1 MG/DL Magnesium Level 1.9 1.8-2.4 MG/DL Total Bilirubin 0.8 0.1-1.0 MG/DL Aspartate Amino Transf (AST/SGOT) 17 5-34 U/L Alanine Aminotransferase (ALT/SGPT) 22 0-55 U/L Alkaline Phosphatase 71 40-136 U/L Myoglobin 91.6 10.0-92.0 NG/ML Troponin I < 0.30 <0.30 NG/ML B-Type Natriuretic Peptide 155.8 H <100.0 PG/ML Total Protein 6.6 6.4-8.2 GM/DL Albumin 4.4 3.2-4.5 GM/DL Thyroid Stimulating Hormone (TSH) 1.48 0.35-4.94 UIU/ML Free Thyroxine 1.62 H 0.70-1.48 NG/DL My Orders Orders - ROSALIO ESTEVEZ MD Cbc With Automated Diff (02/01/18 09:49) Magnesium (02/01/18 09:49) Chest 1 View, Ap/Pa Only (02/01/18 09:49) Ekg Tracing (02/01/18 09:49) Cardiac Profile 1 (02/01/18 09:49) Comprehensive Metabolic Panel (02/01/18 09:49) Myoglobin Serum (02/01/18 09:49) Protime With Inr (02/01/18 09:49) Partial Thromboplastin Time (02/01/18 09:49) O2 (02/01/18 09:49) Monitor-Rhythm Ecg Trace Only (02/01/18 09:49) Lipid Panel (02/02/18 06:00) Saline Lock/Iv-Start (02/01/18 09:49) Thyroid Stimulating Hormone (02/01/18 09:49) Free T4 (Free Thyroxine) (02/01/18 09:49) BNP (02/01/18 11:03) Vital Signs/I&O 02/01/18 09:55 Temp 98.2 Pulse 96 Resp 14 B/P (MAP) 134/92 (106) Pulse Ox 98 O2 Delivery Room Air Blood Pressure Mean: 106 Progress Progress Note : Progress Note Workup was unremarkable. Patient was in atrial fibrillation with RVR. Patient was not given aspirin as she states she does not tolerate aspirin due to bleeding problems on anticoagulation. Case was discussed with Dr. Santana who recommended admission for observation and when necessary Cardizem if patient remains tachycardic. Patient stated her chest discomfort was consistent with prior episodes of RVR. Prior cardiac catheter was reviewed with Dr. Santana. Initial ECG Impression Date: Feb 01, 2018 Initial ECG Impression Time: 09:41 Initial ECG Rate: 118 Initial ECG Rhythm: A Fib/Flutter Initial ECG Impression: Atrial Fibrillation Comment Atrial fibrillation with RVR and no acute ST elevation or depression. Diagnostic Imaging Diagonstic Imaging: Xray Plain Films/CT/US/NM/MRI: chest Comments Chest X reviewed by me and report reviewed. See report below: NAME: BLACK JJ [facility] REC#: [id number] PT STATUS: ADM [place] : 1940 PHYSICIAN: ROSALIO ESTEVEZ MD ADMIT DATE: 02/01/18/ICU Signed Date of Exam: 02/01/18 CHEST 1 VIEW, AP/PA ONLY INDICATION: Chest pain. Shortness of air. COMPARISON: 09/12/2017 FINDINGS: Single frontal view of the chest demonstrates mild enlargement of the cardiac silhouette and mild prominence of the pulmonary vasculature. The lungs are well aerated and clear. No large pleural effusion or pneumothorax is seen. The visualized osseous structures show no acute abnormalities. IMPRESSION: 1. Mild cardiomegaly and pulmonary vascular congestion. Dictated by: Dictated on workstation # [id number] Dict: 02/01/18 1021 Trans: 02/01/18 1650 Interpreted by: CHELSY HUMMEL MD Electronically signed by: CHELSY HUMMEL MD 02/01/18 1650 Departure Communication (Admissions) Time/Spoke to Admitting Phy: 12:10 Dr. Hall Time/Spoke to Consulting Phy: 11:10 Dr. Santana Impression Primary Impression: Atrial fibrillation with rapid ventricular response Additional Impression: Chest pressure Disposition: ADMITTED INPATIENT Condition: Improved Admissions Decision to Admit Reason: Admit from ER (General) Decision to Admit/Date: Feb 01, 2018 Time/Decision to Admit Time: 11:10 Departure-Patient Inst. Referrals: JUAN FRANCISCO VEGA MD (PCP/Family) Primary Care Physician ROSALIO ESTEVEZ MD Feb 01, 2018 12:23
[2018-02-01] MEDS: DILTIAZEM 125 MG/D5W 100 ML DRIP IV SCH ×2 (13:30)
[2018-02-01] MEDS ORDERED: CATHETER FLUSH 10 ML SYR IV PRN (13:30)
[2018-02-01] MEDS: CATHETER FLUSH 10 ML SYR IV SCH ×2 (14:00→21:27)
[2018-02-01] MEDS ORDERED: BACI1TAB3 PO (14:35)
[2018-02-01] MEDS ORDERED: ESOM20CA58 PO (14:35)
[2018-02-01] MEDS ORDERED: DILT120C53 PO (14:35)
[2018-02-01] MEDS ORDERED: morphine INJ 4 MG/ML 1 ML (VIAL/SYRINGE) IV PRN (15:00)
[2018-02-01] MEDS ORDERED: NON-FORMULARY MEDICATION 1 EA EA (Budesonide/Formoterol Fumarate (Symbicort 160-4.5 Mcg In IH PRN (15:15)
[2018-02-01] MEDS ORDERED: NON-FORMULARY MEDICATION 1 EA EA (Diltiazem HCl (Cartia Xt) 120 MG) PO PRN (15:15)
[2018-02-01] MEDS ORDERED: MONTELUKAST 10 MG (SINGULAIR) TAB PO PRN (15:15)
[2018-02-01] MEDS ORDERED: SYSTANE EYE DROPS 15 ML (NON-FORMULARY) OP PRN (15:15)
[2018-02-01] MEDS ORDERED: HYOSCYAMINE SULFATE 0.125 MG PO PRN (15:15)
[2018-02-01] MEDS ORDERED: NON-FORMULARY MEDICATION 1 EA EA (Esomeprazole Magnesium (Nexium 24Hr) 20 MG) PO PRN (15:15)
[2018-02-01] MEDS ORDERED: ALPRAZolam 0.25 MG (XANAX) TAB PO PRN (15:15)
[2018-02-01] MEDS ORDERED: RT-ALBUTEROL SULF 2.5 MG/3 ML PRE-MIX VIAL IH PRN ×2 (15:15→15:45)
[2018-02-01] MEDS ORDERED: PANTOPRAZOLE 40 MG (PROTONIX) TAB PO PRN (15:15)
[2018-02-01] MEDS ORDERED: SUCRALFATE 1 GM (CARAFATE) TAB PO PRN (15:15)
[2018-02-01] MEDS ORDERED: MECLIZINE 25 MG (ANTIVERT) TAB PO SCH (15:15)
[2018-02-01] MEDS ORDERED: RT-ALBUTEROL SULF 2.5 MG/3 ML PRE-MIX VIAL INH PRN (15:15)
[2018-02-01] MEDS ORDERED: HYOSCYAMINE 0.125 MG (LEVSIN) TAB PO PRN (16:00)
[2018-02-01] MEDS ORDERED: DILTIAZEM 120 MG (CARDIZEM CD) CAP PO NR (16:00)
[2018-02-01] MEDS ORDERED: RT-ADVAIR HFA 115/21 MCG PER PUFF IH PRN (16:00)
[2018-02-01] MEDS ORDERED: MECLIZINE 25 MG (ANTIVERT) TAB PO PRN (16:00)
[2018-02-01] MEDS ORDERED: ARTIFICAL TEARS 0.4 ML UNIT DOSE (REFRESH PLUS) OU PRN (16:00)
[2018-02-01] MEDS ORDERED: DILTIAZEM 120 MG (CARDIZEM CD) CAP PO PRN (16:00)
[2018-02-01] MEDS: glipiZIDE 5 MG (GLUCOTROL) TAB PO SCH (16:45)
[2018-02-01] MEDS ORDERED: RIVAROXABAN 20 MG TABLET (XARELTO) PO SCH (17:00)
--- NOTE | 2018-02-01 17:59 | Consultation-Cardiology ---
HPI-Cardiology Cardiology Consultation: Date of Consultation 02/01/18 Date of Admission Attending Physician Mary Hall DO Admitting Physician Clarice Elaine MD Consulting Physician Shanice SANTANA MD HPI: Time Seen by Provider: 16:00 Chief Complaint: Palpitations This is a 78-year-old lady who is a patient of Dr. Aguilar. She has history of atrial fibrillation. She follows with Dr. Aguilar and Dr. Jesus at . She is on oral anticoagulation and was recently started on amiodarone. She presented with chest pain and palpitations. According to the patient whenever she goes into atrial fibrillation and RVR, she complains of chest pain. Review of Systems-Cardiology Review of Systems Constitutional: As described under HPI; No As described under HPI, No no symptoms reported, No chills, No fever, No lightheadedness Eyes: No As described under HPI, No no symptoms reported, No blindness, No blurred vision, No contact lenses, No drainage, No decreased acuity, No foreign body sensation, No pain, No vision change Ears/Nose/Throat: No As described under HPI, No no symptoms reported, No chronic hearing loss, No ear discharge, No ear pain, No nasal drainage, No ulcerations Respiratory: No no symptoms reported; As described under HPI; No As described under HPI, No cough, No orthopnea, No shortness of breath, No SOB with excertion Cardiovascular: No no symptoms reported; As described under HPI; No As described under HPI; chest pain; No edema, No irregular heart rate, No lightheadedness; palpitations Gastrointestinal: No no symptoms reported, No As described under HPI, No abdomen distended, No abdominal pain, No blood streaked bowels, No constipation , No diarrhea, No nausea, No vomiting, No stool coloration changes Genitourinary: No As described under HPI, No burning, No dysuria, No discharge , No frequency, No flank pain, No hematuria, No urgency : Yes : No Musculoskeletal: No no symptoms reported, No As describe under HPI, No back pain, No gout, No joint pain, No joint swelling, No muscle pain, No muscle stiffness, No neck pain, No other Skin: No no symptoms reported, No As described under HPI, No change in color, No change in hair/nails, No dryness, No lesions, No lumps, No rash, No other, No skin related problems, No ulcerations, No rash on exposed areas, No ulcerations on exposed areas Psychiatric/Neurological: No anxiety, No depression, No seizure, No focal weakness, No syncope Hematologic: No bleeding abnormalities AMO-Txilgk-Bqwnyu Hx Patient Social History Alcohol Use: Denies Use Recreational Drug Use: No Smoking Status: Never a Smoker 2nd Hand Smoke Exposure: No Recent Foreign Travel: No Recent Infectious Disease Expo: No Physical Abuse Screen: No Sexual Abuse: No Immunizations Up To Date Tetanus Booster (TDap): Unknown Date of Pneumonia Vaccine: Mar 14, 2016 Date of Influenza Vaccine: Apr 08, 2017 Past Medical History PMH As described under Assessment. Family Medical History Family History: Arthritis 19 FATHER G8 SISTER Congenital heart disease 19 MOTHER G8 BROTHER Diabetes mellitus G8 BROTHER FH: CHF (congestive heart failure) 19 FATHER 19 MOTHER G8 BROTHER FH: CVA (cerebrovascular accident) 19 MOTHER G8 SISTER FH: hypercholesterolemia FH: musculoskeletal disease 19 FATHER G8 SISTER Glaucoma G8 SISTER Hypercholesterolemia Hypertension 19 MOTHER G8 SISTER Myocardial infarction G8 BROTHER Allergies and Home Medications Allergies Coded Allergies: azithromycin (Verified Allergy, Unknown, 06/23/12) cephalexin (Verified Allergy, Unknown, 04/23/06) levofloxacin (Verified Allergy, Unknown, 06/23/12) meloxicam (Verified Allergy, Unknown, 06/23/12) metoprolol (Verified Allergy, Unknown, NECK SPASMS, 10/18/16) metronidazole (Verified Allergy, Unknown, 06/23/12) morphine (Verified Allergy, Unknown, 04/23/06) theophylline (Verified Allergy, Unknown, 04/23/06) prednisone (Verified Adverse Reaction, Intermediate, STOMACH BLEED, ) norfloxacin (Verified Adverse Reaction, Unknown, GI INTOLERANCE, 09/11/07) trovafloxacin (Verified Adverse Reaction, Unknown, GI INTOLERANCE, 09/11/07) Home Medications Albuterol Sulfate 2.5 Mg/3 Ml Vial.neb, 2.5 MG NEB QID PRN for SHORTNESS OF BREATH, (Reported) Albuterol Sulfate 1 Puff Puff, 2 PUFF INH Q4H PRN for SHORTNESS OF BREATH, ( Reported) Alprazolam 0.25 Mg Tablet, 0.25-1 TAB PO Q8H PRN for ANXIETY, (Reported) TAKES 1/4 TO 1 (0.25MG) TABLET Amiodarone HCl 200 Mg Tablet, 100 MG PO BID, (Reported) TAKES 1/2 (200MG) TABLET Bacillus Coagulans 1 Each Tab.chew, 1 TAB.CHEW PO DAILY, (Reported) Budesonide/Formoterol Fumarate 10.2 Gm Hfa.aer.ad, 2 PUFF IH BID PRN for SHORTNESS OF BREATH, (Reported) EITHER USES BREO OR SYMBICROT, DOES NOT USE THEM TOGETHER Diltiazem HCl 120 Mg Cap.er.24h, 120 MG PO BID PRN for HR >100, (Reported) Esomeprazole Magnesium 20 Mg Capsule.dr, 20 MG PO DAILY PRN PRN for HEARTBURN, ( Reported) Fish Oil/Dha/Epa 1 Each Capsule, 1,200 MG PO DAILY, (Reported) Fluticasone/Vilanterol 1 Each Blst.w.dev, 1 PUFF INH DAILY, (Reported) USES EITHER BREO OR SYMBICORT, DOES NOT USE THEM TOGETHER Glipizide 5 Mg Tablet, 2.5 MG PO BID, (Reported) TAKES 1/2 OF A (5 MG) TABLET Hyoscyamine Sulfate 0.125 Mg Tablet, 0.125 MG PO Q6H PRN for SPASMS, (Reported) Levothyroxine Sodium 88 Mcg Tablet, 88 MCG PO DAILY, (Reported) Meclizine HCl 25 Mg Tablet, 25 MG PO UD, (Reported) Montelukast Sodium 10 Mg Tablet, 10 MG PO HS PRN for ALLERGIES/ASTHMA, (Reported ) Multivitamin 1 Each Tablet, 1 TAB PO DAILY, (Reported) Pantoprazole Sodium 40 Mg Tablet.dr, 40 MG PO DAILY PRN for GI UPSET, (Reported) Propylene Glycol/Peg 400 15 Ml Drops, 2 DROPS OU QID PRN for DRY EYES, (Reported ) Rivaroxaban 20 Mg Tablet, 20 MG PO 1700, (Reported) Sucralfate 1 Gm Tablet, 1 GM PO ACHS PRN for GI UPSET, (Reported) DISSOLVE WITH 10ML WATER [Liq Vit B Comp] , 1 APPFUL PO DAILY, (Reported) Patient Home Medication List Home Medication List Reviewed: Yes Physical Exam-Cardiology Physical Exam Vital Signs/I&O 02/02/18 02/02/18 02/02/18 02/02/18 03:23 04:00 04:00 05:00 Temp 97.8 Pulse 89 103 Resp 18 18 B/P (MAP) 123/80 (94) 120/69 (86) Pulse Ox 92 96 93 O2 Delivery Room Air Room Air Room Air 02/02/18 02/02/18 02/02/18 02/02/18 06:00 07:00 07:00 07:06 Pulse 97 90 98 Resp 37 19 B/P (MAP) 121/83 (96) 116/79 (91) Pulse Ox 96 93 92 O2 Delivery Room Air Room Air Room Air 02/02/18 02/02/18 02/02/18 02/02/18 08:00 08:00 08:00 09:00 Temp 98.5 Pulse 101 112 Resp 22 16 B/P (MAP) 118/79 (92) 125/82 (96) Pulse Ox 96 97 O2 Delivery Room Air Room Air Room Air Room Air 02/02/18 02/02/18 02/02/18 02/02/18 10:00 11:00 12:00 12:00 Pulse 113 104 113 Resp 22 11 24 B/P (MAP) 126/79 (95) 119/87 (98) 107/76 (86) Pulse Ox 98 99 98 O2 Delivery Room Air Room Air Room Air Room Air 02/02/18 02/02/18 02/02/18 02/02/18 12:03 13:00 13:00 14:00 Temp 98.3 Pulse 95 98 85 Resp 21 16 B/P (MAP) 111/71 (84) 116/67 (83) Pulse Ox 96 96 O2 Delivery Room Air Room Air Room Air 02/02/18 00:00 Intake Total 460 ml Balance 460 ml Capillary Refill : Less Than 3 Seconds Constitutional: appears stated age, AAO x 3; No apparent distress; well- developed, well-nourished HEENT: PERRL; No normal ENT inspection, No TMs normal, No pharynx normal, No scleral icterus (R), No scleral icterus (L), No pale conjunctivae (R), No pale conjunctivae (L), No photophobia, No TM abnormal (R), No TM abnormal (L), No pharyngeal erythema, No tonsillar exudate, No other, No discharge, No EOMI; hearing is well preserved; No hard of hearing; oral hygience is good; No ulceration, No xanthelasmas are seen Neck: No non-tender, No full range of motion, No supple, No normal inspection, No carotid bruit, No limited range of motion, No lymphadenopathy (R), No lymphadenopathy (L), No tender lateral, No tender midline, No thyromegaly, No other; carotid pulses are 2 + bilaterally; No with good upstrokes Respiratory: No accessory muscle use, No respiratory distress, No chest tender , No chest expansion is symmetric; chest is bilaterally symmetric; No lungs clear to percussion; lungs clear to auscultation; No crackles, No rhonchi, No rales, No stridor, No wheezing, No pleural rub, No other Cardiovascular: No regular rate-rhythm; irregularly irregular; No extra beats, No parasternal heave is noted, No JVD, No edema, No bradycardia; tachycardia; No point of maximal impulse, No cardiac thrills are palpable; S1 and S2; No gallop/S3, No gallop/S4, No diastolic murmur, No systolic murmur, No friction rub, No click, No other Gastrointestinal: No tender, No soft, No round, No distended, No pulsatile mass , No organomegaly, No guarding, No rebound, No tenderness, No hernia, No mass, No audible bowel sounds, No abnormal bowel sounds, No abdominal bruits, No spleenomegaly, No other Rectal: deferred Extremities: No normal range of motion, No non-tender, No normal inspection, No pedal edema, No calf tenderness, No normal capillary refill, No pelvis stable , No calf tenderness, No inflammation, No pedal edema, No slow capillary refill , No swelling, No other, No abrasion, No clubbing, No cyanosis, No ecchymosis, No laceration, No no lower extremity edema bilateral, No significant edema, No tenderness, No wound Neurologic/Psychiatric: no motor/sensory deficits, alert, normal mood/affect, oriented x 3, power is 5/5 both on sides Skin: No normal color, No warm/dry, No cyanosis, No cool, No diaphoresis, No damp, No ecchymosis, No jaundice, No mottled, No pallor, No rash, No tattoos/ piercings, No ulcerations, No rash on exposed areas, No ulcerations on exposed areas, No other Data Review Labs Laboratory Tests 02/01/18 18:56: Troponin I < 0.30 02/02/18 07:30: White Blood Count 6.2, Red Blood Count 4.60, Hemoglobin 12.7, Hematocrit 40, Mean Corpuscular Volume 86, Mean Corpuscular Hemoglobin 28, Mean Corpuscular Hemoglobin Concent 32, Red Cell Distribution Width 22.7H, Platelet Count 284, Mean Platelet Volume 10.2, Neutrophils (%) (Auto) 66, Lymphocytes (%) (Auto) 17 , Monocytes (%) (Auto) 10, Eosinophils (%) (Auto) 5, Basophils (%) (Auto) 1, Neutrophils # (Auto) 4.1, Lymphocytes # (Auto) 1.1, Monocytes # (Auto) 0.6, Eosinophils # (Auto) 0.3, Basophils # (Auto) 0.1, Sodium Level 142, Potassium Level 3.9, Chloride Level 107, Carbon Dioxide Level 26, Anion Gap 9, Blood Urea Nitrogen 14, Creatinine 0.81, Estimat Glomerular Filtration Rate > 60, BUN/ Creatinine Ratio 17, Glucose Level 149H, Calcium Level 9.5, Triglycerides Level 80, Cholesterol Level 190, LDL Cholesterol Direct 119, VLDL Cholesterol 16, HDL Cholesterol 54 ECG Impression ECG Initial ECG Impression: Atrial Fibrillation w/RVR A/P-Cardiology Assessment/Admission Diagnosis Chest pain, Atrial fibrillation with rapid ventricular rate, PVCs, PCI/CAD Plan Chest pain, serial troponin. EKG did not show any acute ST-T wave abnormalities. Atrial fibrillation with rapid ventricular rate, continue Cardizem and amiodarone. Continue Xarelto. PVCs, Cardizem. PCI/CAD, Thank you for your consultation. Please call me if you have any questions. William Santana MD, FACP, FACC, FSCAI, FHRS, CCDS Interventional Cardiology Cardiac Electrophysiology Vascular Medicine and Endovascular Interventions Clinical Quality Measures DVT/VTE Risk/Contraindication: Risk Factor Score Per Nursin RFS Level Per Nursing on Admit: 4+=Very High Shanice SANTANA MD Feb 01, 2018 17:59
--- OUTSIDE RECORDS SUMMARY | 2018-02-01 18:12 | XMS REPORT | Encounter Summary ---
Author Author [facility] Organization [facility] Address Unknown Phone Unavailable Care Team Providers Care Equipment Man Name Role Phone Clarice Elaine MD PCP Encounter Details Date Type Department Care Team Description 12/07/2017 [facility] Cardiology Doug Zapien MD Encounter [phone] [place] [address] [place] [address] [phone] Social History Tobacco Use Types Packs/Day Years Used Date Never Smoker Smokeless Tobacco: Never Used Alcohol Use Drinks/Week oz/Week Comments No Sex Assigned at Date Recorded Not on file as of this encounter Medications at Time of Discharge Medication Sig. Disp. Refills Start Date End Date albuterol (PROAIR HFA) 90 Inhale 2 puffs by mouth mcg/actuation inhaler into the lungs every 6 hours as needed for Wheezing or Shortness of Breath. Shake well before use. albuterol 0.083% Inhale 1 vial solution by (PROVENTIL; VENTOLIN) 2.5 nebulizer as directed mg /3 mL (0.083 %) every 4 hours as needed nebulizer solution for Wheezing or Shortness of Breath. ALPRAZolam (XANAX) 0.25 Take 0.25 mg by mouth at mg tablet bedtime as needed for Anxiety. amiodarone (CORDARONE) Take 1 tablet by mouth 90 tablet 3 12/07/2017 200 mg tablet twice daily. Take with food. budesonide/formoterol Inhale 2 puffs by mouth (SYMBICORT HFA) 160/4.5 into the lungs twice mcg inhalation daily. digoxin (LANOXIN) 250 mcg Take 250 mcg by mouth tablet daily. diltiazem CD (CARDIZEM Take 120 mg by mouth CD) 120 mg capsule daily. Take additional capsule in the evening if HR greater than 100 fluticasone-vilanterol(+) Inhale 1 puff by mouth (BREO ELLIPTA) 100-25 mcg into the lungs daily. inhalation disk glipiZIDE (GLUCOTROL) 5 Take 2.5 mg by mouth mg tablet twice daily with meals. hyoscyamine sulfate Take 125 mcg by mouth (LEVSIN) 0.125 mg tablet every 4 hours as needed for Cramps. levothyroxine (SYNTHROID) Take 88 mcg by mouth 88 mcg tablet daily 30 minutes before breakfast. meclizine (ANTIVERT) 25 Take 25 mg by mouth three mg tablet times daily as needed. multivitamin (MULTIPLE Take by mouth. VITAMIN PO) Ndtin-6-DPC-EPA-Fish Oil Take by mouth. 1,200 (144-216) mg cap rivaroxaban (XARELTO) 20 Take 20 mg by mouth mg tablet daily. Take with food. sucralfate (CARAFATE) 1 Take 1 g by mouth every 6 gram tablet hours. Take on an empty stomach. VITAMIN B COMPLEX PO Take by mouth. as of this encounter Plan of Treatment Not on fileas of this encounter Results * DEVICE EVALUATION - ILR (12/07/2017 2:10 PM) Narrative Performed At OTHER OUTSIDE LAB Device eval by Rep at [facility] See attached PDF for review Reveal LINQ Interrogation VS at 128bpm 90 AF events, burden 2.5% 4 Herbert events, Undersensing 1 pause event on 11/30/17, 4sec Routed to [facility] for review and cosign. Performing Organization Address City/State/Zipcode Phone Number OTHER OUTSIDE LAB in this encounter Visit Diagnoses Diagnosis Cardiac device in situ Unspecified cardiac device in situ
--- OUTSIDE RECORDS SUMMARY | 2018-02-01 18:12 | XMS REPORT | Encounter Summary ---
Author Author [facility] Organization [facility] Address Unknown Phone Unavailable Care Team Providers Care Instructional Technology Director Name Role Phone Clarice Elaine MD PCP Reason for Visit * Reason Comments New Patient Paroxysmal Afib * Consult, Test & Treat (Routine) Status Reason Specialty Diagnoses / Referred By Referred To Procedures Contact Contact New Request Specialty Cardiology Diagnoses Karie Aguilar, Doug Zapien, Services PAF (paroxysmal MD REINA Required atrial [address]) [address] ([facility]) [place] [id number] Phone: Fax: Encounter Details Date Type Department Care Team Description 12/07/2017 Office Visit [facility] Doug Zapien MD New Patient; Paroxysmal [address] Afib [address] [place] [address] [place] [address] [phone] Social History Tobacco Use Types Packs/Day Years Used Date Never Smoker Smokeless Tobacco: Never Used Alcohol Use Drinks/Week oz/Week Comments No Sex Assigned at Date Recorded Not on file as of this encounter Last Filed Vital Signs Vital Sign Reading Time Taken Blood Pressure 120/74 12/07/2017 7:47 AM CDT Pulse 104 12/07/2017 7:47 AM CDT Temperature - - Respiratory Rate - - Oxygen Saturation - - Inhaled Oxygen - - Concentration Weight 66.2 kg (146 lb) 12/07/2017 7:47 AM CDT Height 154.9 cm (5' 1") 12/07/2017 7:47 AM CDT Body Mass Index 27.59 12/07/2017 7:47 AM CDT in this encounter Instructions * Patient Instructions - Sabi Gabriel RN - 12/07/2017 9:16 AM CDT Start Amiodarone 400 mg per day (ok to take in divided doses of 200 mg twice per day) Follow up with Dr Zapien in 3 months at either the [facility] or [facility] In order to provide you the best care possible we ask that you follow up as below: For NON-URGENT questions please contact us through your [employer] account. For all medication refills please contact your pharmacy or send a request through [employer]. For all questions that may need to be addressed urgently please call the nursing triage line at [phone] Sunday - Sunday 8-5 only. Please leave a detailed message with your name, date of , and reason for your call. To schedule an appointment call [phone]. Please allow 10-15 business days for the results of any testing to be reviewed. Please call our office if you have not heard from a nurse within this time frame. Amiodarone tablets Brand Names: Cordarone, Pacerone What is this medicine? AMIODARONE (a KARNE oh da wilfredo) is an antiarrhythmic drug. It helps make your heart beat regularly. Because of the side effects caused by this medicine, it is only used when other medicines have not worked. It is usually used for heartbeat problems that may be life threatening. How should I use this medicine? Take this medicine by mouth with a glass of water. Follow the directions on the prescription label. You can take this medicine with or without food. However, you should always take it the same way each time. Take your doses at regular intervals. Do not take your medicine more often than directed. Do not stop taking except on the advice of your doctor or health medicare nurse. A special MedGuide will be given to you by the pharmacist with each prescription and refill. Be sure to read this information carefully each time. Talk to your non categorical preschool teacher regarding the use of this medicine in children. Special care may be needed. What side effects may I notice from receiving this medicine? Side effects that you should report to your doctor or health medicare nurse as soon as possible: allergic reactions like skin rash, itching or hives, swelling of the face, lips, or tongue blue-yao coloring of the skin blurred vision, seeing blue green halos, increased sensitivity of the eyes to light breathing problems chest pain dark urine fast, irregular heartbeat feeling faint or light-headed intolerance to heat or cold nausea or vomiting pain and swelling of the scrotum pain, tingling, numbness in feet, hands redness, blistering, peeling or loosening of the skin, including inside the mouth spitting up blood stomach pain sweating unusual or uncontrolled movements of body unusually weak or tired weight gain or loss yellowing of the eyes or skin Side effects that usually do not require medical attention (report to your doctor or health medicare nurse if they continue or are bothersome): change in sex drive or performance constipation dizziness headache loss of appetite trouble sleeping What may interact with this medicine? Do not take this medicine with any of the following medications: abarelix apomorphine arsenic trioxide certain antibiotics like erythromycin, gemifloxacin, levofloxacin, pentamidine certain medicines for depression like amoxapine, tricyclic antidepressants certain medicines for fungal infections like fluconazole, itraconazole, ketoconazole, posaconazole, voriconazole certain medicines for irregular heart beat like disopyramide, dofetilide, dronedarone, ibutilide, propafenone, sotalol certain medicines for malaria like chloroquine, halofantrine cisapride droperidol haloperidol hawthorn maprotiline methadone phenothiazines like chlorpromazine, mesoridazine, thioridazine pimozide ranolazine red yeast rice vardenafil ziprasidone This medicine may also interact with the following medications: antiviral medicines for HIV or AIDS certain medicines for blood pressure, heart disease, irregular heart beat certain medicines for cholesterol like atorvastatin, cerivastatin, lovastatin , simvastatin certain medicines for hepatitis C like sofosbuvir and ledipasvir; sofosbuvir certain medicines for seizures like phenytoin certain medicines for thyroid problems certain medicines that treat or prevent blood clots like warfarin cholestyramine cimetidine clopidogrel cyclosporine dextromethorphan diuretics fentanyl general anesthetics grapefruit juice lidocaine loratadine methotrexate other medicines that prolong the QT interval (cause an abnormal heart rhythm) procainamide quinidine rifabutin, rifampin, or rifapentine [place]'s Wort trazodone What if I miss a dose? If you miss a dose, take it as soon as you can. If it is almost time for your next dose, take only that dose. Do not take double or extra doses. Where should I keep my medicine? Keep out of the reach of children. Store at room temperature between 20 and 25 degrees C (68 and 77 degrees F). Protect from light. Keep container tightly closed. Throw away any unused medicine after the expiration date. What should I tell my health care provider before I take this medicine? They need to know if you have any of these conditions: liver disease lung disease other heart problems thyroid disease an unusual or allergic reaction to amiodarone, iodine, other medicines, foods , dyes, or preservatives or trying to get breast-feeding What should I watch for while using this medicine? Your condition will be monitored closely when you first begin therapy. Often, this drug is first started in a hospital or other monitored health care setting. Once you are on maintenance therapy, visit your doctor or health medicare nurse for regular checks on your progress. Because your condition and use of this medicine carry some risk, it is a good idea to carry an identification card, necklace or bracelet with details of your condition, medications, and doctor or health medicare nurse. You may get drowsy or dizzy. Do not drive, use machinery, or do anything that needs mental alertness until you know how this medicine affects you. Do not stand or sit up quickly, especially if you are an older patient. This reduces the risk of dizzy or fainting spells. This medicine can make you more sensitive to the sun. Keep out of the sun. If you cannot avoid being in the sun, wear protective clothing and use sunscreen. Do not use sun lamps or tanning beds/booths. You should have regular eye exams before and during treatment. Call your doctor if you have blurred vision, see halos, or your eyes become sensitive to light. Your eyes may get dry. It may be helpful to use a lubricating eye solution or artificial tears solution. If you are going to have surgery or a procedure that requires contrast dyes, tell your doctor or health medicare nurse that you are taking this medicine. NOTE:This sheet is a summary. It may not cover all possible information. If you have questions about this medicine, talk to your doctor, pharmacist, or health care provider. Copyright 2018 [employer] in this encounter Progress Notes * Doug Zapien MD - 12/07/2017 8:30 AM CDT Formatting of this note may be different from the original. Date of Service: 12/07/2017 Thalia Tadeo is a 77 y.o. female. HPI I had the pleasure of seeing your patient Thalia Tadeo in the [facility] as a part of the [facility] office today for initial Electrophysiolgy Consultation regarding her Paroxysmal Atrial Fibrillation. She is typically followed and was referred by my partner Dr. Karie Aguilar, her primary textile converter. Ms. Tadeo is an exceptionally pleasant 77 y.o. female, who is accompanied by her equally pleasant spouse, Lalo. Her is [place] and has a cochlear implant. All data in this note, including the past medical history, was newly collected today. Her PMHx briefly includes: Paroxysmal Atrial Fibrillation; CADstatus post cardiac catheterization by Dr. Aguilar11/2017 patent Stent in the LAD with small vessel disease distally and mild CAD otherwise; Normal LV function; Hypertension; Hyperlipidemia; Medtronic LinQ Implantable Monitor (09/10/15); Asthma; Hypothyroidism; Diabetes She has a [id number] score of 6: Female; Age (x2); CAD; HTN; DM NOTE: Apparently she has been INTOLERANT to BETA BLOCKERS in the past. ~ 2011: Onset of AFIB around the time of stent placement -- Prior GI bleed in the past on "triple therapy" for AFIB and stents. -- 09/10/15: Medtronic LinQ Implantable Monitor device implantation by Dr. Aguilar in [place], [place] -- 10/2016-: Medtronic LinQ Implantable Monitor confirmed very infrequent AFIB. -- 11/2017: Admitted to the hospital in [place], [place] for AFIB with RVR during stress testing: Treated with Lopressor, digoxin, verapamil and discharged home on diltiazem. She STATES the onset of her atrial fibrillation dates back to her stent placement in 2011. She states she is able to "tell" when she is in AFIB. She describes feeling "terrible" when she has recurrent episodes of AFIB. She reports symptoms of fatigue, tachypalpitations, and shortness of breath. She states she has had multiple recurrent episodes of atrial fibrillation. She states she "can't keep on" having these symptoms. She reminded me of her prior GI bleed when she was on triple therapy anticoagulation in the past. She states she is unable to take Coumadin or Aspirin. She states she is on Xarelto. She denies any current bleeding issues-blood in the urine, blood in the stool, tolerating anticoagulation without obvious issue. Her is unable to know if she snores due to his [place], however, her children have not noted any snoring and she does not have symptoms consistent with OSAS when she does not have AFIB. She reports a history of hypothyroidism. She states she is on Synthroid. She denies any chest discomfort, lightheadedness, dizziness, near syncope or syncope, PND or orthopnea. FHx, SHx and ROS documented and I have reviewed, with some pertinent features to include: +FHx of premature CAD (Mother-CAD, Father-CAD, Brother-Heart Attack ). She is a Non-Smoker. Most pertinent ROS is included/discussed throughout the note, e.g. HPI and A/P. ASSESSMENT AND PLAN: -- Fatigue, SOA, Tachypalpitations -- Paroxysmal Atrial FibrillationCURRENTLY PERSISTENT ATRIAL FIBRILLATION -- CADstatus post Cardiac Catheterization by Dr. Aguilar11/2017 patent Stent in the LAD with small vessel disease distally and mild CAD otherwise -- Normal LV function -- Hypertension -- Hyperlipidemia -- Medtronic LinQ Implantable Monitor (09/10/15) -- Asthma -- Hypothyroidism -- Diabetes Interestingly, she went until August with very rare and infrequent AFIB. Understandably, that prompted Dr. Aguilar to pursue further evaluation of ensure there is no other precipitating cause of her AFIB i.e. CAD, LV dysfunction, etc. That evaluation apparently was unremarkable. I think she is symptomatic only from atrial fibrillation but more likely from the rapid ventricular response of her AFIB. She has been intolerant to beta- blockers. She has been intolerant to higher doses of calcium channel blockers for multiple reasons. We had a lengthy discussion regarding Atrial Fibrillation, the pathophysiology, the mechanism, and therapeutic options. We discussed what I call the 3 R's: The Rhythm being abnormal; the Rate being Rapid; and the Risk of stroke. We discussed that the cure rate from an AFIB ablation in people over 75 years old is probably 30-40% in which case she would likely need to be on antiarrhythmic therapy regardless. She has not been on antiarrhythmic therapy to date. Therefore, I recommended initiation of Amiodarone. In fact, after extensive discussion, we will initiate Amiodarone 400 mg daily-- we will plan to further titrate the dose down in the future. I emphasized that she should take it with food. I have chosen to start at this dosage to avoid intolerance since she states she has had problems with medications in the past and would have a low threshold to decrease to 200 mg daily if she has intolerance. We discussed the potential side effects and/or toxicities of Amiodarone, including but not limited to: affecting the liver, lungs, thyroid, eyes, and gait. We also discussed their incidence and frequency. We discussed that she would need baseline studies/labs, as well as follow up labs on a regular basis to assess/follow these potential risks. These tests would include, but not be limited to: Pulmonary Function Testing (PFTs) with DLCO, PA and Lateral CXR, LFTs, TFTs, ophthalmology exams, etc. She expressed an understanding of these details, and is agreeable to initiate Amiodarone therapy. If she fails amiodarone therapy or is intolerant to it that I think it would be reasonable to pursue an AFIB ablation at that time recognizing that her goal would not be cure but better control of her AFIB. I would also consider Tikosyn initiation at that point as well if necessary. Hopefully that will not be an issue. She also significantly symptomatic from her RVR of her AFIB. Initiation of amiodarone should help that as well. She of course need to continue anticoagulation. I discussed all the above also with Dr. Aguilar. He is agreeable to plan. Also after lengthy discussion Milo Ahsan is agreeable to the plan as well. PLAN: -- We will initiate Amiodarone 400 mg daily -- We will obtain baseline Amiodarone testing including PFTs with DLCO, PA and Lateral CXR, LFTs, TFTs, ophthalmology exams, etc -- At her 3 months follow up we will likely decrease Amiodarone to 300 mg per day with plan for further titration if she is still doing well -- She will continue to follow up with Dr. Aguilar -- Since she is on anticoagulation, I have asked her to monitor for any signs or symptoms of bleeding, including blood in the stool or urine, etc and to contact her PMD if any occurs. Ms. Tadeo was educated regarding plan of care. She was instructed to call our office with any questions or concerns, as well as to notify us of any new or worsening symptoms. She verbalized understanding. I appreciate the opportunity to participate in the care of your patient. Please do not hesitate to contact me directly if you have any questions or further insights into her care. I have scheduled her follow-up with me in 3 month(s). Vitals: 12/07/17 0747 BP: 120/74 Pulse: 104 Weight: 66.2 kg (146 lb) Height: 1.549 m (5' 1") Body mass index is 27.59 kg/m. Past Medical History Patient Active Problem List Diagnosis Date Noted PAF (paroxysmal atrial fibrillation) ([facility]) 12/07/2017 CHA2Ds@-VASc score=4 11/10/15 Dr Alves -implantation of internal loop recorder - Reveal Linq 11/26/17 Echo: EF 55 - 65%, focal basal hypertrophy, systolic function is normal. no regional wall motion abn. left atrial mild to moderate dilation. measuring 4.45 cm, right atrium is dilated. mitral valve moderately calcified annulus mild calcified leaflets, mild regurgitation, aortic valve with thickening, consistent with sclerosis, mod regurgitation of tricuspid valve. pulmonary hypertension with est pulmonary artery pressure of 50 - 55 mmHG 11/28/17 Dr Aguilar - stress test - developed AF with RVR - abnormal stress test with anteroapical and anterolateral mild ischemia. (cath results below) Coronary artery disease involving [place] coronary artery of [place] heart 07/201711/28/17 Stress test - PAF with RVR to hospital, treated with lopressor, dig then verapamil IV. home with po cardizem 11/29/17 cardiac cath: patent stent in proximal LAD with small vessel disease distally, mild coronary artery disease non obstructive, normal left ventricular end-diastolic pressure Essential hypertension 12/07/2017 Hyperlipidemia 12/07/2017 COPD (chronic obstructive pulmonary disease) ([facility]) 12/07/2017 Diabetes mellitus ([facility]) 12/07/2017 Hypothyroidism 12/07/2017 Bilateral carotid artery stenosis 12/07/2017 GI bleed 12/07/2017 history of intolerance to aggressive oral anticoagulation including aspirin and plavix and coumadin. currently maintained on xarelto Review of Systems Constitution: Positive for malaise/fatigue. HENT: Negative. Eyes: Negative. Cardiovascular: Positive for irregular heartbeat and palpitations. Respiratory: Positive for shortness of breath. Endocrine: Negative. Hematologic/Lymphatic: Negative. Skin: Negative. Musculoskeletal: Positive for arthritis and muscle cramps. Gastrointestinal: Positive for heartburn. Genitourinary: Negative. Neurological: Positive for dizziness. Psychiatric/Behavioral: Negative. Allergic/Immunologic: Positive for environmental allergies. Physical Exam Constitutional: She is in no acute distress, resting comfortably. Skin/Integument: Warm and dry Eyes: PERRL, sclera are non-icteric and no xanthelasmas noted ENT : Hearing is intact, Oropharynx is clear and moist. Heme/Lym/Immun: Supple neck, without thyromegaly Respiratory-Pulmonary/Chest: Effort normal and breath sounds normal. No respiratory distress or accessory muscle use. No obvious tracheal deviation. Clear to auscultation bilaterally. Cardiovascular: No evidence of increased jugular venous pressure, carotids are 2+/4+ equal bilaterally, without obvious bruit. Irregularly irregular rhythm, S1, S2. 2-3/6 systolic murmur noted at the RUSB --> LLSB. No heaves, thrills or rubs. GI: + Bowel sounds, soft and non-tender Musc/Skeletal-Extremities: With trace pretibial and pedal pitting peripheral edema and with what appears to be full ROM. With mild venous varicosities. LINQ Site: is in her left infraclavicular chest and well-healed. Neuro: Patient is alert and oriented to person, place, and time. Psych: Patient does not appear anxious, she appears appropriate, with normal non-pressured speech and what appears to be appropriate judgement Cardiovascular Studies ECG today demonstrates persistent coarse atrial fibrillation with an average ventricular rate of [address]-T changes consistent with digoxin effect. [employer] Reveal LinQ Implantable Looping Monitor Full device check performed with reprogramming which I have extensively reviewed. Changes, if done, as discussed below and is detailed in other dictation/note. Interestingly looking at her cardiac Compass she has had minimal atrial fibrillation until around August 2017 this is dating back to October 2016. She started having some occasional episodes up until this month. This month she had a tremendous increase in her AFIB burden. She is also had 46 episodes of bradycardia arrhythmias and 2 pauses. One pauses clearly under sensing another pauses a post termination pause lasting up to 4 seconds. Her longest episode is the current episode which started on 529. Previous to that she had a 53 minute episode. Problems Addressed Today Encounter Diagnoses Name Primary? Bilateral carotid artery stenosis PAF (paroxysmal atrial fibrillation) (HCC) Current Medications (including today's revisions) albuterol (PROAIR HFA) 90 mcg/actuation inhaler Inhale 2 puffs by mouth into the lungs every 6 hours as needed for Wheezing or Shortness of Breath. Shake well before use. albuterol 0.083% (PROVENTIL; VENTOLIN) 2.5 mg /3 mL (0.083 %) nebulizer solution Inhale 1 vial solution by nebulizer as directed every 4 hours as needed for Wheezing or Shortness of Breath. ALPRAZolam (XANAX) 0.25 mg tablet Take 0.25 mg by mouth at bedtime as needed for Anxiety. amiodarone (CORDARONE) 200 mg tablet Take 1 tablet by mouth twice daily. Take with food. budesonide/formoterol (SYMBICORT HFA) 160/4.5 mcg inhalation Inhale 2 puffs by mouth into the lungs twice daily. digoxin (LANOXIN) 250 mcg tablet Take 250 mcg by mouth daily. diltiazem CD (CARDIZEM CD) 120 mg capsule Take 120 mg by mouth daily. Take additional capsule in the evening if HR greater than 100 fluticasone-vilanterol(+) (BREO ELLIPTA) 100-25 mcg inhalation disk Inhale 1 puff by mouth into the lungs daily. glipiZIDE (GLUCOTROL) 5 mg tablet Take 2.5 mg by mouth twice daily with meals. hyoscyamine sulfate (LEVSIN) 0.125 mg tablet Take 125 mcg by mouth every 4 hours as needed for Cramps. levothyroxine (SYNTHROID) 88 mcg tablet Take 88 mcg by mouth daily 30 minutes before breakfast. meclizine (ANTIVERT) 25 mg tablet Take 25 mg by mouth three times daily as needed. multivitamin (MULTIPLE VITAMIN PO) Take by mouth. Llfej-1-ABR-EPA-Fish Oil 1,200 (144-216) mg cap Take by mouth. rivaroxaban (XARELTO) 20 mg tablet Take 20 mg by mouth daily. Take with food. sucralfate (CARAFATE) 1 gram tablet Take 1 g by mouth every 6 hours. Take on an empty stomach. VITAMIN B COMPLEX PO Take by mouth. Documentation recorded by Timothy Navarro, acting as scribe for Doug Zapien M.D. in this encounter Plan of Treatment Name Priority Associated Diagnoses Order Schedule ECG 12-LEAD Routine Bilateral carotid artery Ordered: 12/07/2017 stenosis PAF (paroxysmal atrial fibrillation) ([facility]) as of this encounter Procedures Procedure Name Priority Date/Time Associated Diagnosis Comments ECG-SCAN 12/17/2017 Results for this 2:28 PM CDT procedure are in the results section. ECG-SCAN 12/15/2017 Results for this 8:55 AM CDT procedure are in the results section. in this encounter Results * ECG-SCAN (12/17/2017 2:28 PM) Narrative Performed At Ordered by an unspecified provider. * ECG-SCAN (12/15/2017 8:55 AM) Narrative Performed At Ordered by an unspecified provider. * ECG/QRS (12/07/2017) QRS DURATION 86 OTHER OUTSIDE LAB Performing Organization Address City/State/Zipcode Phone Number OTHER OUTSIDE LAB in this encounter Visit Diagnoses Diagnosis Bilateral carotid artery stenosis Occlusion and stenosis of multiple and bilateral precerebral arteries without mention of cerebral infarction PAF (paroxysmal atrial fibrillation) (HCC) Atrial fibrillation
--- OUTSIDE RECORDS SUMMARY | 2018-02-01 18:12 | XMS REPORT | Encounter Summary ---
Author Author [facility] Organization [facility] Address Unknown Phone Unavailable Care Team Providers Care Social Services Aide Name Role Phone PCP Unavailable Reason for Visit * Reason Comments Records Request records received Encounter Details Date Type Department Care Team Description 11/26/2017 Telephone [facility] Opal Dooley Records Request (records [address] received) [place], [place] [id number] Social History Tobacco Use Types Packs/Day Years [...] have been requested from [facility] in [place], [place]. Opal Dooley ----- Message from Viridiana Romero sent at 11/26/2017 11:36 AM CDT ----- Regarding: please request recs/patient provided information/Thanks Guerline Name: BLACK TADEO Date: 12/07/2017 Status: [facility] Time: 8:30 AM Length: 30 Visit Type: NEW PATIENT [4010] Provider: Doug Zapien MD Department: [facility] Hosp: yes at [facility] [phone] (recs requested) in this encounter Plan of Treatment Not on fileas of this encounter Visit Diagnoses Not on filein this encounter
--- OUTSIDE RECORDS SUMMARY | 2018-02-01 18:12 | XMS REPORT | Encounter Summary ---
Author Author [facility] Organization [facility] Address Unknown Phone Unavailable Care Team Providers Care Trap Puller Name Role Phone Clarice Elaine MD PCP Reason for Visit * Reason Comments Medication Question Encounter Details Date Type Department Care Team Description 12/11/2017 Telephone [facility] Cardiology Yary Smith RN Medication Question [facility] [place] [address] [place] [address] [phone] [place], [place] [address] Social History Tobacco Use Types Packs/Day Years Used Date Never Smoker Smokeless Tobacco: Never Used Alcohol Use Drinks/Week oz/Week Comments No Sex Assigned at Date Recorded Not on file as of this encounter Miscellaneous Notes * Telephone Encounter - Sabi Gabriel RN - 12/14/2017 9:54 AM CDT follow up call to Thalia regarding GI s/s related to amiodarone. She states that she divided the tablets and takes 4 times per day with food and has not had further s/s. States today that her HR is HR 114/min but she is "sure I am not in AF because I feel terrible when I am" she is scheduled for iron transfusion today as well as 3 x next week. Also states she had restarted her Metformin independently.. having increased leg swelling, denies shortness of air, wt changes advised her to contact her pcp, Clarice Elaine BILLET HEATER today with this information and f/u. At this time she will continue the current dose of amiodarone as directed by Dr Zapien at the office visit on 12/07/17 Dr Zapien reviewed and if she has further problems with tolerance of the amiodarone she may need to reduce amiodarone dosing * Telephone Encounter - Yary Smith RN - 12/11/2017 4:50 PM CDT Amiodarone started by MPElmo on Sunday morning. She tells me that last night she was sick to her stomach and was up all night. She did take am dose today but continues to be sick to her stomach. She called Dr. Aguilar's office and was told to hold off on amiodarone tonight. Patient tells me that she has taken medication with food. Patient is going to have iron infusions tomorrow. Per MPE note from 12/07/17, "She has not been on antiarrhythmic therapy to [...] to 200 mg daily if she has intolerance." Will review with MPE. * Telephone Encounter - Yary Smith RN - 12/11/2017 4:48 PM CDT ----- Message from Liz Lu LPN sent at 12/11/2017 4:10 PM CDT ----- Regarding: MPE- med issue VM from patient on triage line. Said that the new medication is making her sick to her stomach. Call back at home. in this encounter Plan of Treatment Not on fileas of this encounter Visit Diagnoses Not on filein this encounter
--- OUTSIDE RECORDS SUMMARY | 2018-02-01 18:12 | XMS REPORT | Encounter Summary ---
Author Author [facility] Organization [facility] Address Unknown Phone Unavailable Care Team Providers Care [place] Buffer Name Role Phone Clarice Elaine MD PCP Reason for Visit * Reason Comments Records Request [facility] [phone] - records received Encounter Details Date Type Department Care Team Description 12/10/2017 Documentation [facility] Cardiology Lauryn Natarajan Records Request ([address] [facility] [phone] [place] [address] records received ) [phone] Social History Tobacco Use Types Packs/Day Years Used Date Never Smoker Smokeless Tobacco: Never Used Alcohol Use Drinks/Week oz/Week Comments No Sex Assigned at Date Recorded Not on file as of this encounter Progress Notes * Nasima Foy, KIA - 12/10/2017 3:50 PM CDT Records received.- records in Dr Zapien's right fax folder * Lauryn Natarajan - 12/10/2017 3:50 PM CDT Request for the following medical records for purpose of continuity of care: Thalia Tadeo 1940 has [address] appointment [address]. Zapien Please send: PFTs Chest X-Ray Recent Labs Cath report Please Fax to: [phone] Attention: Lauryn Natarajan MA [facility] [address] [place] [address] in this encounter Plan of Treatment Not on fileas of this encounter Visit Diagnoses Not on filein this encounter
--- OUTSIDE RECORDS SUMMARY | 2018-02-01 18:12 | XMS REPORT | Encounter Summary ---
Author Author [facility] Organization [facility] Address Unknown Phone Unavailable Care Team Providers Care Cottrell Operator Name Role Phone PCP Unavailable Reason for Visit * Reason Comments Labs Only Encounter Details Date Type Department Care Team Description 12/05/2017 Documentation [facility] Katherine Guevara LPN Labs Only [address] [place] [address] Social History Tobacco Use Types Packs/Day Years Used Date Never Smoker Smokeless Tobacco: Never Used Alcohol Use Drinks/Week oz/Week Comments No Sex Assigned at Date Recorded Not on file as of this encounter Plan of Treatment Not on fileas of this encounter Results * IRON + BINDING CAPACITY + %SAT+ FERRITIN (12/04/2017) Iron 15 (L) 25 - 156 OTHER OUTSIDE LAB % Saturation 3.7 (L) 20.0 - 50.0 OTHER OUTSIDE LAB Iron Binding-TIBC 404 OTHER OUTSIDE LAB Ferritin 4.0 (L) 11.0 - 306.8 OTHER OUTSIDE LAB Specimen Blood Narrative Performed At Performing Organization Address City/State/Zipcode Phone Number OTHER OUTSIDE LAB in this encounter Visit Diagnoses Not on filein this encounter
--- OUTSIDE RECORDS SUMMARY | 2018-02-01 18:12 | XMS REPORT | Encounter Summary ---
Author Author [facility] Organization [facility] Address Unknown Phone Unavailable Care Team Providers Care Payroll Representative Name Role Phone PCP Unavailable Reason for Visit * Reason Comments New Patient PAF (paroxysmal atrial fibrillation) ([facility]) [I48.0] Encounter Details Date Type Department Care Team Description 11/26/2017 Patient Profile [facility] Maira Gibson New Patient ( [facility]F [facility] [id number] (paroxysmal atrial [address] fibrillation) ([facility]) [place] [address] [I48.0] ) [phone] Social History Tobacco Use Types Packs/Day Years [...] OUTSIDE LAB Device eval by Rep at [facility] See attached PDF for review Reveal LINQ Interrogation VS at 128bpm 90 AF events, burden 2.5% 4 Herbert events, Undersensing 1 pause event on 11/30/17, 4sec Routed to [facility] for review and cosign. Performing Organization Address City/State/Zipcoor Phone Number OTHER OUTSIDE LAB in this encounter Visit Diagnoses Diagnosis Cardiac device in situ - Primary Unspecified cardiac device in situ
--- OUTSIDE RECORDS SUMMARY | 2018-02-01 18:12 | XMS REPORT | Clinical Summary ---
Author Author [facility] Organization [facility] Address Unknown Phone Unavailable Care Team Providers Care Cashier Courtesy Booth Name Role Phone Clarice Elaine MD PCP Source Comments Some departments are not documenting in the electronic medical record. If you do not see the information that you expected, contact Release of Information in the Health Information Management department at [phone] for further assistance in locating additional records.[facility] Allergies Active Allergy Reactions Severity Noted Date [...] Shortness of Breath. Shake well before use. budesonide/formoterol Inhale 2 puffs by mouth Active [...] tablet hours. Take on an empty stomach. Naulc-6-LVW-EPA-Fish Oil Take by mouth. Active 1,200 (144-216) mg cap multivitamin (MULTIPLE Take by mouth. Active VITAMIN [...] Active mg tablet times daily as needed. diltiazem CD (CARDIZEM Take 120 mg by mouth Active CD) 120 mg capsule daily. Take additional capsule in the evening if HR greater than 100 amiodarone (CORDARONE) Take 1 tablet by mouth 90 tablet 3 12/08/19 Active 200 mg tablet twice daily. Take with 18 food. Active Problems Problem Noted Date PAF (paroxysmal atrial fibrillation) ([facility]) 12/07/2017 Overview: CHA2Ds@-VASc score=4 11/10/15 Dr Alves -implantation of [...] (cath results below) Coronary artery disease involving [place] coronary artery of [place] heart 07/2017 Overview: 11/28/17 Stress test - PAF with RVR to hospital, treated with lopressor, dig then verapamil IV. home with po cardizem 11/29/17 cardiac cath: patent stent in proximal LAD with small vessel disease distally, mild coronary artery disease non obstructive, normal left ventricular end-diastolic pressure Essential hypertension 12/07/2017 Hyperlipidemia 12/07/2017 COPD (chronic obstructive pulmonary disease) ([facility]) 12/07/2017 Diabetes mellitus ([facility]) 12/07/2017 Hypothyroidism 12/07/2017 Bilateral carotid artery stenosis 12/07/2017 GI bleed 12/07/2017 Overview: history of intolerance to aggressive oral anticoagulation including aspirin and plavix and coumadin. currently maintained on xarelto Encounters Date Type Specialty Care Team Description 12/11/2017 Telephone Cardiology Yary Smith, timber robber Question 12/10/2017 Documentation Cardiology Lauryn Natarajan Records Request ( [facility] [phone] - records received ) 12/07/2017 Office Visit Cardiology Doug Zapien MD New Patient; Paroxysmal Afib 12/07/2017 Hospital Cardiology Doug Zapien MD Encounter 12/05/2017 Documentation Cardiology Katherine Guevara LPN Labs Only 11/26/2017 Telephone Cardiology Opal Dooley Records Request ( records received) 11/26/2017 Patient Profile Cardiology Maira Gibson New Patient ( PAF (paroxysmal atrial fibrillation) ([facility]) [I48.0] ) 11/26/2017 Orders Only Cardiology Lois Pathak PAF (paroxysmal atrial fibrillation) ([facility]) (Primary Dx) 11/26/2017 Orders Only [...] Not on file Last Filed Vital Signs Vital Sign Reading [...] Mass Index 27.59 12/07/2017 7:47 AM CDT Plan of Treatment Health Maintenance Due Date Last Done Comments PHYSICAL (COMPREHENSIVE) 01/31/1947 EXAM PERTUSSIS VACCINE 01/31/1952 TETANUS VACCINE 1958 DILATED EYE EXAM 1959 FOOT EXAM 1959 HBA1C 1959 MICROALBUMIN 1959 SHINGLES RECOMBINANT 1991 VACCINE (1 of 2) OSTEOPOROSIS SCREENING 2006 PNEUMONIA (PCV13/PPSV23) 2006 VACCINES (1 of 2 - PCV13) INFLUENZA VACCINE 04/08/2018 04/30/2017, 04/13/2005, 04/09/2003, Additional history exists Procedures Procedure Name Priority Date/Time Associated Diagnosis Comments ECG-SCAN 12/17/2017 Results for this 2:28 PM CDT procedure are in the results section. ECG-SCAN 12/15/2017 Results for this 8:55 AM CDT procedure are in the results section. from Last 3 Months Results * ECG-SCAN (12/17/2017 2:28 PM) Narrative Performed At Ordered by an unspecified provider. * ECG-SCAN (12/15/2017 8:55 AM) Narrative Performed At Ordered by an unspecified provider. * DEVICE EVALUATION - ILR (12/07/2017 2:10 PM) Narrative Performed At OTHER OUTSIDE LAB Device eval by Rep at [facility] See attached PDF for review Reveal LINQ Interrogation VS at 128bpm 90 AF events, burden 2.5% 4 Herbert events, Undersensing 1 pause event on 11/30/17, 4sec Routed to E for review and cosign. Performing Organization Address City/State/Zipcode Phone Number OTHER OUTSIDE LAB * ECG/QRS (12/07/2017) QRS DURATION 86 OTHER OUTSIDE LAB Performing Organization Address City/State/Zipcode Phone Number OTHER OUTSIDE LAB * IRON + BINDING CAPACITY + %SAT+ FERRITIN (12/04/2017) Iron 15 (L) 25 - 156 OTHER OUTSIDE LAB % Saturation 3.7 (L) 20.0 - 50.0 OTHER OUTSIDE LAB Iron Binding-TIBC 404 OTHER OUTSIDE LAB Ferritin 4.0 (L) 11.0 - 306.8 OTHER OUTSIDE LAB Specimen Blood Narrative Performed At Performing Organization Address City/State/Zipcode Phone Number OTHER OUTSIDE LAB from Last 3 Months
--- OUTSIDE RECORDS SUMMARY | 2018-02-01 18:13 | XMS REPORT | Encounter Summary ---
Author Author [facility] Organization [facility] Address Unknown Phone Unavailable Care Team Providers Care Instrument Specialist Name Role Phone PCP Unavailable Encounter Details Date Type Department Care Team Description 11/26/2017 Orders Only [facility] [address] [place] [address] Social History Tobacco Use Types Packs/Day Years Used Date Never Smoker Smokeless Tobacco: Never Used Alcohol Use Drinks/Week oz/Week Comments No Sex Assigned at Date Recorded Not on file as of this encounter Plan of Treatment Not on fileas of this encounter Visit Diagnoses Not on filein this encounter
--- OUTSIDE RECORDS SUMMARY | 2018-02-01 18:13 | XMS REPORT | Encounter Summary ---
Author Author [facility] Organization [facility] Address Unknown Phone Unavailable Care Team Providers Care Screw Machine Set Up Operator Name Role Phone PCP Unavailable Reason for Referral * Consult, Test & Treat (Routine) Status Reason Specialty Diagnoses / Referred By Referred To Procedures Contact Contact New Request Specialty Cardiology Diagnoses Karie Aguilar, Rupali, Doug P, Services PAF (paroxysmal MD REINA Required atrial [address] [place] [place] [address] fibrillation) [address] ([facility]) [place] [address] Phone: Fax: Encounter Details Date Type Department Care Team Description 11/26/2017 Orders Only [facility]REF[facility]AL Lois Pathak PAF (paroxysmal atrial fibrillation) ([facility]) (Primary Dx) Social History Tobacco Use Types Packs/Day Years Used Date Never Smoker Smokeless Tobacco: Never Used Alcohol Use Drinks/Week oz/Week Comments No Sex Assigned at Date Recorded Not on file as of this encounter Plan of Treatment Name Priority Associated Diagnoses Order Schedule AMB REFERRAL TO ADULT CARDIOLOGY Routine PAF (paroxysmal atrial Ordered : 11/26/2017 fibrillation) ([facility]) as of this encounter Visit Diagnoses Diagnosis PAF (paroxysmal atrial fibrillation) ([facility]) - Primary Atrial fibrillation
--- OUTSIDE RECORDS SUMMARY | 2018-02-01 18:34 | XMS REPORT | Clinical Summary ---
Author Author [facility] Organization [facility] Address Unknown Phone Unavailable Care Team Providers Care City Auditor Name Role Phone Clarice Elaine MD PCP Source Comments Some departments are not documenting in the electronic medical record. If you do not see the information that you expected, contact Release of Information in the Health Information Management department at [phone] for further assistance in locating additional records.[facility] Allergies Active Allergy Reactions Severity Noted [...] tablet hours. Take on an empty stomach. Iupzb-2-GAT-EPA-Fish Oil Take by mouth. Active 1,200 (144-216) [...] Problem Noted Date PAF (paroxysmal atrial fibrillation) ([facility]) 12/07/2017 Overview: CHA2Ds@-VASc score=4 11/10/15 [...] (cath results below) Coronary artery disease involving [place] coronary artery of [place] heart 07/2017 Overview: 11/28/17 Stress test - PAF with RVR to hospital, treated with lopressor, dig then verapamil IV. home with po cardizem 11/29/17 cardiac cath: patent stent in proximal LAD with small vessel disease distally, mild coronary artery disease non obstructive, normal left ventricular end-diastolic pressure Essential hypertension 12/07/2017 Hyperlipidemia 12/07/2017 COPD (chronic obstructive pulmonary disease) ([facility]) 12/07/2017 Diabetes mellitus ([facility]) 12/07/2017 Hypothyroidism 12/07/2017 Bilateral carotid artery stenosis 12/07/2017 GI bleed 12/07/2017 Overview: history of intolerance to aggressive oral anticoagulation including aspirin and plavix and coumadin. currently maintained on xarelto Encounters Date Type Specialty Care Team Description 12/11/2017 Telephone Cardiology Yary Smith, supervisor customer services Question 12/10/2017 Documentation Cardiology Lauryn Natarajan Records Request ( [facility] [phone] - records received ) 12/07/2017 Office Visit Cardiology Doug Zapien MD New Patient; Paroxysmal Afib 12/07/2017 Hospital Cardiology Doug Zapien MD Encounter 12/05/2017 Documentation Cardiology Katherine Guevara LPN Labs Only 11/26/2017 Telephone Cardiology Opal Dooley Records Request ( records received) 11/26/2017 Patient Profile Cardiology Maira Gibson New Patient ( PAF (paroxysmal atrial fibrillation) ([facility]) [I48.0] ) 11/26/2017 Orders Only Cardiology Lois Pathak PAF (paroxysmal atrial fibrillation) ([facility]) (Primary Dx) 11/26/2017 Orders Only Cardiology Losi Pathak from Last 3 Months Family History [...] OUTSIDE LAB Device eval by Rep at [facility] See attached PDF for review Reveal LINQ [...]
--- OUTSIDE RECORDS SUMMARY | 2018-02-01 18:34 | XMS REPORT | Encounter Summary ---
Author Author [facility] Organization [facility] Address Unknown Phone Unavailable Care Team Providers Care Entry Examiner Name Role Phone Clarice Elaine MD PCP Reason for Visit * Reason Comments Medication Question Encounter Details Date Type Department Care Team Description 12/11/2017 Telephone [facility] Cardiology Yary Smith RN Medication Question [facility] [place] [facility] [place] [address] [phone] [place], [place] [phone] Social History Tobacco Use Types Packs/Day Years [...] her to contact her pcp, Clarice Elaine DISTRICT SUPERINTENDENT today with this information and f/u. At [...]
--- OUTSIDE RECORDS SUMMARY | 2018-02-01 18:34 | XMS REPORT | Encounter Summary ---
Author Author [facility] Organization [facility] Address Unknown Phone Unavailable Care Team Providers Care Craft Center Director Name Role Phone Clarice Elaine MD PCP Encounter Details Date Type Department Care Team Description 12/07/2017 [facility] Cardiology Doug Zapien MD Encounter [address] [place] [address] [place] [address] [phone] Social History Tobacco Use Types Packs/Day Years [...] multivitamin (MULTIPLE Take by mouth. VITAMIN PO) Znoiu-8-DPT-EPA-Fish Oil Take by mouth. 1,200 (144-216) mg [...] OUTSIDE LAB Device eval by Rep at [facility] See attached PDF for review Reveal LINQ Interrogation VS at 128bpm 90 AF events, burden 2.5% 4 Herbert events, Undersensing 1 pause event on 11/30/17, 4sec Routed to [facility] for review and cosign. Performing Organization Address City/State/Zipcode Phone Number OTHER OUTSIDE LAB in this encounter Visit Diagnoses Diagnosis Cardiac device in situ Unspecified cardiac device in situ
--- OUTSIDE RECORDS SUMMARY | 2018-02-01 18:34 | XMS REPORT | Encounter Summary ---
Author Author [facility] Organization [facility] Address Unknown Phone Unavailable Care Team Providers Care Systems Designer Name Role Phone PCP Unavailable Reason for Visit * Reason Comments Labs Only Encounter Details Date Type Department Care Team Description 12/05/2017 Documentation [facility] Katherine Guevara LPN Labs Only [address] [place] [address] Social History Tobacco Use Types [...]
--- OUTSIDE RECORDS SUMMARY | 2018-02-01 18:34 | XMS REPORT | Encounter Summary ---
Author Author [facility] Organization [facility] Address Unknown Phone Unavailable Care Team Providers Care Dance Professor Name Role Phone Clarice Elaine MD PCP Reason for Visit * Reason Comments Records Request [facility] [phone] - records received Encounter Details Date Type Department Care Team Description 12/10/2017 Documentation [facility] Cardiology Lauryn Natarajan Records Request ([address] [facility] [phone] [place] [address] records received ) [phone] Social History Tobacco Use Types Packs/Day Years [...] Recent Labs Cath report Please Fax to: [phone] Attention: Lauryn Naatrajan MA [facility] [address] [place] [address] in this encounter Plan of Treatment Not on fileas of this encounter Visit Diagnoses Not on filein this encounter
--- OUTSIDE RECORDS SUMMARY | 2018-02-01 18:34 | XMS REPORT | Encounter Summary ---
Author Author [facility] Organization [facility] Address Unknown Phone Unavailable Care Team Providers Care Manager Of Regulatory Affairs Name Role Phone PCP Unavailable Reason for Visit * Reason Comments Records Request records received Encounter Details Date Type Department Care Team Description 11/26/2017 Telephone [facility] Opal Dooley Records Request (records [address] received) [place], [place] [id number] Social History Tobacco Use Types Packs/Day Years [...] have been requested from [facility] in [place], [place]. Opal Dooley ----- Message from Viridiana Romero sent at 11/26/2017 11:36 AM CDT ----- Regarding: please request recs/patient provided information/Thanks Guerline Name: BLACK TADEO Date: 12/07/2017 Status: [facility] Time: 8:30 AM Length: 30 Visit Type: NEW PATIENT [4010] Provider: Doug Zapien MD Department: [facility] Hosp: yes at [facility] [phone] (recs requested) in this encounter Plan of Treatment Not on fileas of this encounter Visit Diagnoses Not on filein this encounter
--- OUTSIDE RECORDS SUMMARY | 2018-02-01 18:34 | XMS REPORT | Encounter Summary ---
Author Author [facility] Organization [facility] Address Unknown Phone Unavailable Care Team Providers Care Customer Operations Representative Name Role Phone Clarice Elaine MD PCP Reason for Visit * Reason Comments New Patient Paroxysmal Afib * Consult, Test & Treat (Routine) Status Reason Specialty Diagnoses / Referred By Referred To Procedures Contact Contact New Request Specialty Cardiology Diagnoses Karie Aguilar, Doug Zapien, Services PAF (paroxysmal MD REINA Required atrial [address] fibrillation) Pl [address] ([facility]) [place] [address] Phone: Fax: Encounter Details Date Type Department Care Team Description 12/07/2017 Office Visit [facility] Doug Zaipen MD New Patient; Paroxysmal [address] Afib [address] [place] [address] [place] [address] [phone] Social History Tobacco Use Types Packs/Day Years [...] Zapien in 3 months at either the [facility] or [facility] In order to provide you the best care possible we ask that you follow up as below: For NON-URGENT questions please contact us through your [employer] account. For all medication refills please contact your pharmacy or send a request through [employer]. For all questions that may need to be addressed urgently please call the nursing triage line at [phone] Sunday - Sunday 8-5 only. Please leave a detailed message with your name, date of , and reason for your call. To schedule an appointment call [phone]. Please allow 10-15 business days for the results of any testing to be reviewed. Please call our office if you have not heard from a nurse within this time frame. Amiodarone tablets Brand Names: Cordarone, Pacerone What is this medicine? AMIODARONE (a KAREN oh da wilfredo) is an antiarrhythmic drug. [...] the advice of your doctor or health neonatal critical care nurse. A special MedGuide will be given to you by the pharmacist with each prescription and refill. Be sure to read this information carefully each time. Talk to your casino floor supervisor regarding the use of this medicine in children. Special care may be needed. What side effects may I notice from receiving this medicine? Side effects that you should report to your doctor or health neonatal critical care nurse as soon as possible: allergic reactions [...] attention (report to your doctor or health neonatal critical care nurse if they continue or are bothersome): [...] rhythm) procainamide quinidine rifabutin, rifampin, or rifapentine [place]'s Wort trazodone What if I miss a [...] maintenance therapy, visit your doctor or health neonatal critical care nurse for regular checks on your progress. Because your condition and use of this medicine carry some risk, it is a good idea to carry an identification card, necklace or bracelet with details of your condition, medications, and doctor or health neonatal critical care nurse. You may get drowsy or dizzy. [...] contrast dyes, tell your doctor or health neonatal critical care nurse that you are taking this medicine. [...] seeing your patient Thalia Tadeo in the [facility] as a part of the [facility] office today for initial Electrophysiolgy Consultation regarding her Paroxysmal Atrial Fibrillation. She is typically followed and was referred by my partner Dr. Karie Aguilar, her primary employment appeals examiner. Ms. Tadeo is an exceptionally pleasant 77 y.o. female, who is accompanied by her equally pleasant spouse, Lalo. Her is RED CLIFF and has a cochlear implant. All data in this note, including the past medical history, was newly collected today. Her PMHx briefly includes: Paroxysmal Atrial Fibrillation; CADstatus post cardiac catheterization by Dr. Aguilar11/2017 patent Stent in the LAD with small vessel disease distally and mild CAD otherwise; Normal LV function; Hypertension; Hyperlipidemia; Medtronic LinQ Implantable Monitor (09/10/15); Asthma; Hypothyroidism; Diabetes She has a [id number] score of 6: Female; Age (x2); CAD; HTN; DM NOTE: Apparently she has been INTOLERANT to BETA BLOCKERS in the past. ~ 2011: Onset of AFIB around the time of stent placement -- Prior GI bleed in the past on "triple therapy" for AFIB and stents. -- 09/10/15: Medtronic LinQ Implantable Monitor device implantation by Dr. Aguilar in [place], [place] -- 10/2016-: Medtronic LinQ Implantable Monitor confirmed very infrequent AFIB. -- 11/2017: Admitted to the hospital in [place], [place] for AFIB with RVR during stress [...] know if she snores due to his RED CLIFF, however, her children have not noted any [...] Diagnosis Date Noted PAF (paroxysmal atrial fibrillation) ([facility]) 12/07/2017 CHA2Ds@-VASc score=4 11/10/15 Dr Alves -implantation [...] (cath results below) Coronary artery disease involving [place] coronary artery of [place] heart 07/201711/28/17 Stress test - PAF with RVR to hospital, treated with lopressor, dig then verapamil IV. home with po cardizem 11/29/17 cardiac cath: patent stent in proximal LAD with small vessel disease distally, mild coronary artery disease non obstructive, normal left ventricular end-diastolic pressure Essential hypertension 12/07/2017 Hyperlipidemia 12/07/2017 COPD (chronic obstructive pulmonary disease) ([facility]) 12/07/2017 Diabetes mellitus ([facility]) 12/07/2017 Hypothyroidism 12/07/2017 Bilateral carotid artery stenosis [...] nonspecific ST-T changes consistent with digoxin effect. ExaDigm Reveal LinQ Implantable [place] Monitor Full device [...] multivitamin (MULTIPLE VITAMIN PO) Take by mouth. [id number]-Fish Oil 1,200 (144-216) mg cap Take by [...] Ordered: 12/07/2017 stenosis PAF (paroxysmal atrial fibrillation) ([facility]) as of this encounter Procedures Procedure Name [...]
--- OUTSIDE RECORDS SUMMARY | 2018-02-01 18:34 | XMS REPORT | Encounter Summary ---
Author Author [facility] Organization [facility] Address Unknown Phone Unavailable Care Team Providers Care Cnc Grinder Name Role Phone PCP Unavailable Encounter Details Date Type Department Care Team Description 11/26/2017 [facility] Only [facility] [address] [place] [address] Social History Tobacco Use Types Packs/Day Years Used Date Never Smoker Smokeless Tobacco: Never Used Alcohol Use Drinks/Week oz/Week Comments No Sex Assigned at Date Recorded Not on file as of this encounter Plan of Treatment Not on fileas of this encounter Visit Diagnoses Not on filein this encounter
--- OUTSIDE RECORDS SUMMARY | 2018-02-01 18:34 | XMS REPORT | Encounter Summary ---
Author Author [facility] Organization [facility] Address Unknown Phone Unavailable Care Team Providers Care Collator Operator Name Role Phone PCP Unavailable Reason for Visit * Reason Comments New Patient PAF (paroxysmal atrial fibrillation) ([facility]) [I48.0] Encounter Details Date Type Department Care Team Description 11/26/2017 Patient Profile [facility] Maira Gibson New Patient ( [facility]F [facility] [id number] (paroxysmal atrial [address] fibrillation) ([facility]) [place] [address] [I48.0] ) [phone] Social History Tobacco Use Types Packs/Day Years [...] OUTSIDE LAB Device eval by Rep at [facility] See attached PDF for review Reveal LINQ Interrogation VS at 128bpm 90 AF events, burden 2.5% 4 Herbert events, Undersensing 1 pause event on 11/30/17, 4sec Routed to [facility] for review and cosign. Performing Organization Address City/State[place] Phone Number OTHER OUTSIDE LAB in this encounter Visit Diagnoses Diagnosis Cardiac device in situ - Primary Unspecified cardiac device in situ
--- OUTSIDE RECORDS SUMMARY | 2018-02-01 18:34 | XMS REPORT | Encounter Summary ---
Author Author [facility] Organization [facility] Address Unknown Phone Unavailable Care Team Providers Care Mechanical Equipment Sales Engineer Name Role Phone PCP Unavailable Reason for Referral * Consult, Test & Treat (Routine) Status Reason Specialty Diagnoses / Referred By Referred To Procedures Contact Contact New Request Specialty Cardiology Diagnoses Karie Aguilar, Rupali, Doug P, Services PAF (paroxysmal MD REINA Required atrial [address] fibrillation) [address] ([facility]) [place] [address] Phone: Fax: Encounter Details Date Type Department Care Team Description 11/26/2017 Orders Only [facility]-REFERRAL Lois Pathak PAF (paroxysmal atrial fibrillation) ([facility]) (Primary Dx) Social History Tobacco Use Types Packs/Day Years Used Date Never Smoker Smokeless Tobacco: Never Used Alcohol Use Drinks/Week oz/Week Comments No Sex Assigned at Date Recorded Not on file as of this encounter Plan of Treatment Name Priority Associated Diagnoses Order Schedule AMB REFERRAL TO ADULT CARDIOLOGY Routine PAF (paroxysmal atrial Ordered : 11/26/2017 fibrillation) ([facility]) as of this encounter Visit Diagnoses Diagnosis PAF (paroxysmal atrial fibrillation) ([facility]) - Primary Atrial fibrillation
[2018-02-01] MEDS: AMIODARONE 200 MG (CORDARONE) TAB PO SCH (21:27)
[2018-02-02] VITALS (16 sets, daily range): BP systolic 103–126; BP diastolic 65–87
[2018-02-02] MEDS: glipiZIDE 5 MG (GLUCOTROL) TAB PO SCH (05:55)
[2018-02-02] MEDS: CATHETER FLUSH 10 ML SYR IV SCH (05:57)
[2018-02-02] MEDS ORDERED: LEVOTHYROXINE 88 MCG (LEVOTHORID) TAB PO SCH (06:30)
[2018-02-02] MEDS ORDERED: OMEGA 3 (FISH OIL) 1000 MG CAP PO SCH (07:00)
[2018-02-02] MEDS ORDERED: MULTIVIT W/MINERALS TAB (THERAGRAN M) PO SCH (07:00)
[2018-02-02 07:46] LABS: BASOPHILS # (AUTO) 0.1 10^3/uL (0.0-0.1); BASOPHILS % (AUTO) 1 % (0-10); EOSINOPHILS # (AUTO) 0.3 10^3/uL (0.0-0.3); EOSINOPHILS % (AUTO) 5 % (0-10); HEMATOCRIT 40 % (35-52); HEMOGLOBIN 12.7 G/DL (11.5-16.0); LYMPHOCYTES # (AUTO) 1.1 X 10^3 (1.0-4.0); LYMPHOCYTES % (AUTO) 17 % (12-44); MEAN CORPUSCULAR HEMOGLOBIN 28 PG (25-34); MEAN CORPUSCULAR HGB CONC 32 G/DL (32-36); MEAN CORPUSCULAR VOLUME 86 FL (80-99); MEAN PLATELET VOLUME 10.2 FL (7.4-10.4); MONOCYTES # (AUTO) 0.6 X 10^3 (0.0-1.0); MONOCYTES % (AUTO) 10 % (0-12); NEUTROPHILS # (AUTO) 4.1 X 10^3 (1.8-7.8); NEUTROPHILS % (AUTO) 66 % (42-75); PLATELET COUNT 284 10^3/uL (130-400); RED CELL DISTRIBUTION WIDTH 22.7 % (10.0-14.5); WHITE BLOOD COUNT 6.2 10^3/uL (4.3-11.0)
[2018-02-02] MEDS ORDERED: RT-ADVAIR HFA 115/21 MCG PER PUFF IH SCH ×2 (08:00)
[2018-02-02 08:04] LABS: BUN/CREATININE RATIO 17; CALCIUM 9.5 MG/DL (8.5-10.1); CARBON DIOXIDE 26 MMOL/L (21-32); CHLORIDE 107 MMOL/L (98-107); CREATININE SERUM 0.81 MG/DL (0.60-1.30); GFR ESTIMATED > 60; GLUCOSE 149 MG/DL (70-105); POTASSIUM 3.9 MMOL/L (3.6-5.0); SODIUM 142 MMOL/L (135-145)
[2018-02-02] MEDS: AMIODARONE 200 MG (CORDARONE) TAB PO SCH (08:08)
[2018-02-02 08:17] LABS: CHOLESTEROL 190 MG/DL (< 200); HDL CHOLESTEROL 54 MG/DL (40-60); TRIGLYCERIDES 80 MG/DL (<150); VLDL CHOLESTEROL 16 MG/DL (5-40)
[2018-02-02] MEDS ORDERED: [UNRECOGNIZED DRUG - OTHER] PO SCH (09:00)
[2018-02-02] MEDS ORDERED: NON-FORMULARY MEDICATION 1 EA EA (Multivitamin (Daily Multiple Vitamin) 1 TAB) PO SCH (09:00)
[2018-02-02] MEDS ORDERED: LACTOBACILLUS Acidoph/Bulgar (LACTINEX/FLORANEX) TAB PO SCH (09:00)
[2018-02-02] MEDS ORDERED: NON-FORMULARY MEDICATION 1 EA EA (Fluticasone/Vilanterol (Breo Ellipta 100-25 Mcg INH) 1 P INH SCH (09:00)
[2018-02-02] MEDS ORDERED: BACILLUS COAGULANS PO SCH (09:00)
--- NOTE | 2018-02-02 12:08 | Short Stay Summary-Hospitalist ---
History of Present Illness HPI/Chief Complaint CC: AF w/RVR w/chest pressure HPI: This is a 78-year-old white female clinic patient of Dr. Elaine with a known history of chronic atrial fibrillation sees both Dr. Aguilar and [facility] and also has a loop recorder on anticoagulation for stroke prophylaxis he presented to the ER with vague complaints of chest pressure but now she denies that she had chest pain. She reports the palpitations started after her sister called right before she went in for a mastectomy for breast cancer and she is aware that she was very anxious about that situation and feels like that brought this episode on. At this current time we have restarted all of her home medication including her Xanax and she is doing well otherwise. Cardiology has approved discharge with close follow-up as scheduled that she has with Dr. Aguilar and [facility] and there have been no medications changed during this hospital stay. Source: patient, family Exam Limitations: no limitations Date Seen 02/02/18 Time Seen by Provider: 10:45 Attending Physician Mary Lucio Holly A MD Referring Physician Date of Admission Feb 01, 2018 at 12:16 Home Medications & Allergies Home Medications Reviewed patient Home Medication Reconciliation performed by pharmacy medication reconciliations research instrumentation technician and/or nursing. Patients Allergies have been reviewed. Allergies Allergies Coded Allergies azithromycin (Verified Allergy, Unknown, 06/23/12) cephalexin (Verified Allergy, Unknown, 04/23/06) levofloxacin (Verified Allergy, Unknown, 06/23/12) meloxicam (Verified Allergy, Unknown, 06/23/12) metoprolol (Verified Allergy, Unknown, NECK SPASMS, 10/18/16) metronidazole (Verified Allergy, Unknown, 06/23/12) morphine (Verified Allergy, Unknown, 04/23/06) theophylline (Verified Allergy, Unknown, 04/23/06) prednisone (Verified Adverse Reaction, Intermediate, STOMACH BLEED, 10/19/15) norfloxacin (Verified Adverse Reaction, Unknown, GI INTOLERANCE, 09/11/07) trovafloxacin (Verified Adverse Reaction, Unknown, GI INTOLERANCE, 09/11/07) Past Gdyffwz-Slytcz-Zdtwnd Hx Past Med/Social Hx: Reviewed Nursing Past Med/Soc Hx, Reviewed and Corrections made Patient Social History Marrital Status: Employed/Student: retired Alcohol Use: Denies Use Number of Drinks Today: AA Recreational Drug Use: No Smoking Status: Never a Smoker 2nd Hand Smoke Exposure: No Physical Abuse Screen: No Sexual Abuse: No Recent Foreign Travel: No Contact w/other who traveled: No Recent Hopitalizations: No Recent Infectious Disease Expo: No Immunizations Up To Date Tetanus Booster (TDap): Unknown Date of Pneumonia Vaccine: Mar 14, 2016 Date of Influenza Vaccine: Apr 08, 2017 Seasonal Allergies Seasonal Allergies: Yes Past Medical History Surgeries: Cardiac (loop recorder), Coronary Stent, Gallbladder, Hysterectomy, Orthopedic, Thyroidectomy Respiratory: Asthma Currently Using CPAP: No Currently Using BIPAP: No Cardiac: Atrial Fibrillation, Coronary Artery Disease, Deep Vein Thrombosis, High Cholesterol, Hypertension Reproductive: No Sexually Transmitted Disease: No HIV/AIDS: No Female Reproductive Disorders: Denies Gastrointestinal: Gastroesophageal Reflux, Gastrointestinal Bleed, Chronic Diarrhea, Gall Bladder Disease Musculoskeletal: Arthritis, Rheumatoid Arthritis Endocrine: Hypothyroidsim, Diabetes, Non-Insulin dep HEENT: Cataract Loss of Vision: Denies Hearing Impairment: Denies Psychosocial: Anxiety History of Blood Disorders: No Adverse Reaction to Blood Martin: No Family History Arthritis 19 FATHER G8 SISTER Congenital heart disease 19 MOTHER G8 BROTHER Diabetes mellitus G8 BROTHER FH: CHF (congestive heart failure) 19 FATHER 19 MOTHER G8 BROTHER FH: CVA (cerebrovascular accident) 19 MOTHER G8 SISTER FH: hypercholesterolemia FH: musculoskeletal disease 19 FATHER G8 SISTER Glaucoma G8 SISTER Hypercholesterolemia Hypertension 19 MOTHER G8 SISTER Myocardial infarction G8 BROTHER Heart Disease, Hypertension Review of Systems Constitutional: see HPI, weakness EENTM: no symptoms reported Respiratory: short of breath Cardiovascular: chest pain, palpitations Gastrointestinal: heartburn Genitourinary: no symptoms reported Musculoskeletal: no symptoms reported Skin: no symptoms reported Psychiatric/Neurological: No Symptoms Reported All Other Systems Reviewed Negative Unless Noted: Yes Physical Exam Physical Exam Vital Signs Vital Signs - First Documented 02/01/18 09:55 Temp 98.2 Pulse 96 Resp 14 B/P (MAP) 134/92 (106) Pulse Ox 98 O2 Delivery Room Air Capillary Refill : Less Than 3 Seconds Height, Weight, BMI Height: 5'1.00" Weight: 144lbs. 6.0oz. 65.391265il; 27.8 BMI Method:Stated General Appearance: No Apparent Distress, WD/WN, Chronically ill, Thin, Other ( anxious) Eyes: Bilateral Eye Normal Inspection, Bilateral Eye PERRL HEENT: PERRL/EOMI, TMs Normal, Normal ENT Inspection, Pharynx Normal Neck: Full Range of Motion, Normal Inspection, Non Tender, Supple, Carotid Bruit Respiratory: Chest Non Tender, Lungs Clear, Normal Breath Sounds, No Accessory Muscle Use, No Respiratory Distress Cardiovascular: No Edema, No Gallop, No JVD, No Murmur, Normal Peripheral Pulses, Irregularly Irregular Gastrointestinal: Normal Bowel Sounds, No Organomegaly, No Pulsatile Mass, Non Tender, Soft Back: Normal Inspection, No CVA Tenderness, No Vertebral Tenderness Extremity: Normal Capillary Refill, Normal Inspection, Normal Range of Motion, Non Tender, No Calf Tenderness, No Pedal Edema Neurologic/Psychiatric: Alert, Oriented x3, No Motor/Sensory Deficits, Normal Mood/Affect Skin: Normal Color, Warm/Dry Lymphatic: No Adenopathy Results Results/Procedures Labs Laboratory Tests 02/01/18 09:44 02/02/18 07:30 Patient resulted labs reviewed. Short Stay Diagnosis Discharge Diagnosis-Short Stay Admission Diagnosis Brief episode of atrial fibrillation with rapid ventricular response Chronic atrial fib on anticoagulation for stroke prophylaxis follow-up with Dr. Aguilar and [facility] Anxiety IBS Diabetes mellitus Hypothyroidism Hypertension GERD Final Discharge Diagnosis Brief episode of atrial fibrillation with rapid ventricular response Chronic atrial fib on anticoagulation for stroke prophylaxis follow-up with Dr. Aguilar and [facility] Anxiety IBS Diabetes mellitus Hypothyroidism Hypertension GERD Conclusion Plan No changes to any medications Close follow-up alliance party scheduled with Dr. Aguilar and [facility] Maintain loop recorder no changes made per cardiology Short home Diagnosis/Problems Diagnosis/Problems (1) Chest pressure Status: Resolved Assessment & Plan: Troponin negative (2) Atrial fibrillation with rapid ventricular response Status: Acute Assessment & Plan: Dr Aguilar appt 02/07/18 and [facility] soon (3) Anxiety Status: Chronic Assessment & Plan: Likely a contributing factor in current issue, restarted home Xanax. (4) IBS (irritable bowel syndrome) Status: Chronic Qualifiers: Qualified Codes: K58.9 - Irritable bowel syndrome without diarrhea (5) Asthma Status: Chronic Qualifiers: Qualified Codes: J45.20 - Mild intermittent asthma, uncomplicated (6) Hypothyroidism Status: Chronic Qualifiers: Qualified Codes: E03.9 - Hypothyroidism, unspecified (7) Diabetes mellitus Status: Chronic Qualifiers: Qualified Codes: E11.9 - Type 2 diabetes mellitus without complications (8) Esophageal reflux disease Status: Chronic Qualifiers: Qualified Codes: K21.0 - Gastro-esophageal reflux disease with esophagitis Clinical Quality Measures DVT/VTE Risk/Contraindication: Risk Factor Score Per Nursin RFS Level Per Nursing on Admit: 4+=Very High MARY LUCIO DO Feb 02, 2018 12:08
[2018-02-02] MEDS ORDERED: DILTIAZEM 120 MG (CARDIZEM CD) CAP PO NR (12:30)
[2018-02-02] MEDS: DILTIAZEM 125 MG/D5W 100 ML DRIP IV SCH ×2 (14:00)
--- NOTE | 2018-02-02 15:08 | Cardiology Progress Note ---
Cardiology SOAP Progress Note Subjective: Still has atrial fibrillation with rapid ventricular rate. Objective: I&O/Vital Signs 02/02/18 02/02/18 02/02/18 02/02/18 03:23 04:00 04:00 05:00 Temp 97.8 Pulse 89 103 Resp 18 18 B/P (MAP) 123/80 (94) 120/69 (86) Pulse Ox 92 96 93 O2 Delivery Room Air Room Air Room Air 02/02/18 02/02/18 02/02/18 02/02/18 06:00 07:00 07:00 07:06 Pulse 97 90 98 Resp 37 19 B/P (MAP) 121/83 (96) 116/79 (91) Pulse Ox 96 93 92 O2 Delivery Room Air Room Air Room Air 02/02/18 02/02/18 02/02/18 02/02/18 08:00 08:00 08:00 09:00 Temp 98.5 Pulse 101 112 Resp 22 16 B/P (MAP) 118/79 (92) 125/82 (96) Pulse Ox 96 97 O2 Delivery Room Air Room Air Room Air Room Air 02/02/18 02/02/18 02/02/18 02/02/18 10:00 11:00 12:00 12:00 Pulse 113 104 113 Resp 22 11 24 B/P (MAP) 126/79 (95) 119/87 (98) 107/76 (86) Pulse Ox 98 99 98 O2 Delivery Room Air Room Air Room Air Room Air 02/02/18 02/02/18 02/02/18 02/02/18 12:03 13:00 13:00 14:00 Temp 98.3 Pulse 95 98 85 Resp 21 16 B/P (MAP) 111/71 (84) 116/67 (83) Pulse Ox 96 96 O2 Delivery Room Air Room Air Room Air 02/02/18 00:00 Intake Total 460 ml Balance 460 ml Weight (Pounds): 144 Weight (Ounces): 6.0 Weight (Calculated Kilograms): 65.911390 Constitutional: appears stated age, AAO x 3; No apparent distress; well- developed, well-nourished Respiratory: No accessory muscle use, No respiratory distress, No chest tender , No chest expansion is symmetric; chest is bilaterally symmetric; No lungs clear to percussion; lungs clear to auscultation; No crackles, No rhonchi, No rales, No stridor, No wheezing, No pleural rub, No other Cardiovascular: No regular rate-rhythm; irregularly irregular; No extra beats, No parasternal heave is noted, No JVD, No edema, No bradycardia; tachycardia; No point of maximal impulse, No cardiac thrills are palpable; S1 and S2; No gallop/S3, No gallop/S4, No diastolic murmur, No systolic murmur, No friction rub, No click, No other Gastrointestional: No tender, No soft, No round, No distended, No pulsatile mass, No organomegaly, No guarding, No rebound, No tenderness, No hernia, No mass, No audible bowel sounds, No abnormal bowel sounds, No abdominal bruits, No spleenomegaly, No other Extremities: No normal range of motion, No non-tender, No normal inspection, No pedal edema, No calf tenderness, No normal capillary refill, No pelvis stable , No calf tenderness, No inflammation, No pedal edema, No slow capillary refill , No swelling, No other, No abrasion, No clubbing, No cyanosis, No ecchymosis, No laceration, No no lower extremity edema bilateral, No significant edema, No tenderness, No wound Neurologic/Psychiatric: no motor/sensory deficits, alert, normal mood/affect, oriented x 3, power is 5/5 both on sides Skin: No normal color, No warm/dry, No cyanosis, No cool, No diaphoresis, No damp, No ecchymosis, No jaundice, No mottled, No pallor, No rash, No tattoos/ piercings, No ulcerations, No rash on exposed areas, No ulcerations on exposed areas, No other Results/Procedures: Labs Laboratory Tests 02/01/18 18:56: Troponin I < 0.30 02/02/18 07:30: White Blood Count 6.2, Red Blood Count 4.60, Hemoglobin 12.7, Hematocrit 40, Mean Corpuscular Volume 86, Mean Corpuscular Hemoglobin 28, Mean Corpuscular Hemoglobin Concent 32, Red Cell Distribution Width 22.7H, Platelet Count 284, Mean Platelet Volume 10.2, Neutrophils (%) (Auto) 66, Lymphocytes (%) (Auto) 17 , Monocytes (%) (Auto) 10, Eosinophils (%) (Auto) 5, Basophils (%) (Auto) 1, Neutrophils # (Auto) 4.1, Lymphocytes # (Auto) 1.1, Monocytes # (Auto) 0.6, Eosinophils # (Auto) 0.3, Basophils # (Auto) 0.1, Sodium Level 142, Potassium Level 3.9, Chloride Level 107, Carbon Dioxide Level 26, Anion Gap 9, Blood Urea Nitrogen 14, Creatinine 0.81, Estimat Glomerular Filtration Rate > 60, BUN/ Creatinine Ratio 17, Glucose Level 149H, Calcium Level 9.5, Triglycerides Level 80, Cholesterol Level 190, LDL Cholesterol Direct 119, VLDL Cholesterol 16, HDL Cholesterol 54 A/P: Assessment/Dx: Chest pain, Atrial fibrillation with rapid ventricular rate, PVCs, PCI/CAD Plan: Chest pain, serial negative troponin. EKG does not show any acute ST-T wave abnormalities. Atrial fibrillation with rapid ventricular rate, increase Cardizem and continue amiodarone. Continue Xarelto. PVCs, Cardizem. PCI/CAD, Thank you for your consultation. Please call me if you have any questions. William Santana MD, FACP, FACC, FSCAI, FHRS, CCDS Interventional Cardiology Cardiac Electrophysiology Vascular Medicine and Endovascular Interventions Shanice SANTANA MD Feb 02, 2018 15:08
== END 2018-02-02 12:09 | disposition home or self-care (01) ==
LOC: EDUNIT# 09:32 → ER 09:33 → ICU 12:16 → UNDOADMOB 12:16 → ICU 13:45 → UNDODISOB 02-02 16:00
PROVIDERS: ADMIT Internal Medicine; ATTEND Internal Medicine
DX: I48.2 Chronic atrial fibrillation (principal); R07.9 Chest pain, unspecified; M06.9 Rheumatoid arthritis, unspecified; Z95.5 Presence of coronary angioplasty implant and graft; I25.10 Atherosclerotic heart disease of native coronary artery without angina pectoris; E78.00 Pure hypercholesterolemia, unspecified; I10 Essential (primary) hypertension; E03.9 Hypothyroidism, unspecified; E11.9 Type 2 diabetes mellitus without complications; K21.0 Gastro-esophageal reflux disease with esophagitis; K58.9 Irritable bowel syndrome, unspecified; F41.9 Anxiety disorder, unspecified; J45.20 Mild intermittent asthma, uncomplicated; J44.9 Chronic obstructive pulmonary disease, unspecified; Z86.711 Personal history of pulmonary embolism; Z86.718 Personal history of other venous thrombosis and embolism; Z79.01 Long term (current) use of anticoagulants
CPT/HCPCS: 36415; 71045; 80048; 80053; 80061; 83735; 83874; 83880; 84439; 84443; 84484; 85025; 85610; 85730; 87081; 93005; 93041; G0378

== ENCOUNTER 2018-03-17 22:14 | Emergency (ER) | payer MEDICARE, OTHER ==
[~2018-03-17] VITALS: Ht 154.9 cm; Wt 65.5 kg
[~2018-03-17 22:14] MED LIST changes: +BACI1TAB3 PO; +DILT120C53 PO; +ESOM20CA58 PO; +METF-397 PO; -METF500T5 PO
[2018-03-17] MEDS ORDERED: LABETALOL HCL 20 MG/4 ML VIAL ONE (22:41)
[2018-03-17] MEDS ORDERED: fentaNYL INJECTION 100 MCG/2 ML AMP ONE (22:41)
[2018-03-17] MEDS ORDERED: fentaNYL INJECTION 100 MCG/2 ML AMP IVP ONE (22:45)
[2018-03-17 22:49] LABS: BASOPHILS # (AUTO) 0.1 10^3/uL (0.0-0.1); BASOPHILS % (AUTO) 1 % (0-10); EOSINOPHILS # (AUTO) 0.3 10^3/uL (0.0-0.3); EOSINOPHILS % (AUTO) 3 % (0-10); HEMATOCRIT 45 % (35-52); HEMOGLOBIN 14.3 G/DL (11.5-16.0); LYMPHOCYTES # (AUTO) 1.6 X 10^3 (1.0-4.0); LYMPHOCYTES % (AUTO) 18 % (12-44); MEAN CORPUSCULAR HEMOGLOBIN 27 PG (25-34); MEAN CORPUSCULAR HGB CONC 32 G/DL (32-36); MEAN CORPUSCULAR VOLUME 85 FL (80-99); MEAN PLATELET VOLUME 10.4 FL (7.4-10.4); MONOCYTES # (AUTO) 0.9 X 10^3 (0.0-1.0); MONOCYTES % (AUTO) 10 % (0-12); NEUTROPHILS % (AUTO) 68 % (42-75); PLATELET COUNT 323 10^3/uL (130-400); RED BLOOD COUNT 5.29 10^6/uL (4.35-5.85); RED CELL DISTRIBUTION WIDTH 16.7 % (10.0-14.5); WHITE BLOOD COUNT 8.8 10^3/uL (4.3-11.0)
[2018-03-17] MEDS ORDERED: LABETALOL HCL 20 MG/4 ML VIAL IV ONE (23:00)
[2018-03-17 23:10] LABS: INR 2.6 (0.8-1.4); PROTHROMBIN TIME PATIENT 27.6 SEC (12.2-14.7)
[2018-03-17 23:12] LABS: ALANINE AMINOTRANSFERASE 34 U/L (0-55); ALBUMIN 4.5 GM/DL (3.2-4.5); ALKALINE PHOSPHATASE 91 U/L (40-136); BILIRUBIN,TOTAL 0.6 MG/DL (0.1-1.0); BUN/CREATININE RATIO 20; CALCIUM 10.2 MG/DL (8.5-10.1); CARBON DIOXIDE 25 MMOL/L (21-32); CHLORIDE 104 MMOL/L (98-107); GFR ESTIMATED > 60; GLUCOSE 127 MG/DL (70-105); MAGNESIUM 2.2 MG/DL (1.8-2.4); POTASSIUM 4.2 MMOL/L (3.6-5.0); SODIUM 142 MMOL/L (135-145); TOTAL PROTEIN 7.4 GM/DL (6.4-8.2)
[2018-03-17 23:20] LABS: DIGOXIN 0.76 NG/ML (0.80-2.00)
[2018-03-17 23:21] LABS: BILIRUBIN,URINE NEGATIVE (NEGATIVE); CLARITY,URINE CLEAR; COLOR,URINE YELLOW; GLUCOSE, URINE (UA) NEGATIVE (NEGATIVE); KETONES,URINE NEGATIVE (NEGATIVE); LEUKOCYTE ESTERASE ,URINE NEGATIVE (NEGATIVE); NITRITE,URINE NEGATIVE (NEGATIVE); PH,URINE 8 (5-9); PROTEIN,URINE NEGATIVE (NEGATIVE); UROBILINOGEN,URINE NORMAL (NORMAL)
[2018-03-17 23:21] LABS: MYOGLOBIN SERUM 76.4 NG/ML (10.0-92.0)
[2018-03-17 23:33] LABS: BACTERIA,URINE NEGATIVE /HPF; SQUAMOUS EPITHELIAL CELL,UR 0-2 /HPF
[2018-03-17 23:34] LABS: FREE T4 (FREE THYROXINE) 1.65 NG/DL (0.70-1.48)
--- NOTE | 2018-03-18 00:53 | ED Cardiac General ---
History of Present Illness General Chief Complaint: Cardiac/General Problems Stated Complaint: HIGH BP Nursing Triage Note: PT PRESENTS TO ER WITH COMPLAINT AFIB, HYPERTENSION, HEADACHE, AND RIGHT ARM PAIN. STATES SHE NOTICED THE HYPERTENSION TONIGHT. 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 She also has a significant headache which she is not accustomed to. She took her Cardizem 120 mg just prior to coming to the emergency room. She has this prescribed to take PRN for heart rate over 100. Unusual for her. She is anticoagulated with Xarelto due to her atrial fibrillation. She also has some minor pains including right arm pain and right upper quadrant pain. Pains are intermittent and chronic. She was feeling weak this morning and stumbled getting out of bed. She also reports reviewed frequent urination. Allergies and Home Medications Allergies Coded Allergies: azithromycin (Verified Allergy, Unknown, 06/23/12) cephalexin (Verified Allergy, Unknown, 04/23/06) levofloxacin (Verified Allergy, Unknown, 06/23/12) meloxicam (Verified Allergy, Unknown, 06/23/12) metoprolol (Verified Allergy, Unknown, NECK SPASMS, 10/18/16) metronidazole (Verified Allergy, Unknown, 06/23/12) morphine (Verified Allergy, Unknown, 04/23/06) theophylline (Verified Allergy, Unknown, 04/23/06) prednisone (Verified Adverse Reaction, Intermediate, STOMACH BLEED, ) norfloxacin (Verified Adverse Reaction, Unknown, GI INTOLERANCE, 09/11/07) trovafloxacin (Verified Adverse Reaction, Unknown, GI INTOLERANCE, 09/11/07) Home Medications Albuterol Sulfate 2.5 Mg/3 Ml Vial.neb, 2.5 MG NEB QID PRN for SHORTNESS OF BREATH, (Reported) Albuterol Sulfate 1 Puff Puff, 2 PUFF INH Q4H PRN for SHORTNESS OF BREATH, ( Reported) Alprazolam 0.25 Mg Tablet, 0.25-1 TAB PO Q8H PRN for ANXIETY, (Reported) TAKES 1/4 TO 1 (0.25MG) TABLET Amiodarone HCl 200 Mg Tablet, 100 MG PO BID, (Reported) TAKES 1/2 (200MG) TABLET Bacillus Coagulans 1 Each Tab.chew, 1 TAB.CHEW PO DAILY, (Reported) Budesonide/Formoterol Fumarate 10.2 Gm Hfa.aer.ad, 2 PUFF IH BID PRN for SHORTNESS OF BREATH, (Reported) EITHER USES BREO OR SYMBICROT, DOES NOT USE THEM TOGETHER Diltiazem HCl 120 Mg Cap.er.24h, 120 MG PO BID PRN for HR >100, (Reported) Esomeprazole Magnesium 20 Mg Capsule.dr, 20 MG PO DAILY PRN PRN for HEARTBURN, ( Reported) Fish Oil/Dha/Epa 1 Each Capsule, 1,200 MG PO DAILY, (Reported) Fluticasone/Vilanterol 1 Each Blst.w.dev, 1 PUFF INH DAILY, (Reported) USES EITHER BREO OR SYMBICORT, DOES NOT USE THEM TOGETHER Glipizide 5 Mg Tablet, 2.5 MG PO BID, (Reported) TAKES 1/2 OF A (5 MG) TABLET Hyoscyamine Sulfate 0.125 Mg Tablet, 0.125 MG PO Q6H PRN for SPASMS, (Reported) Levothyroxine Sodium 88 Mcg Tablet, 88 MCG PO DAILY, (Reported) Meclizine HCl 25 Mg Tablet, 25 MG PO UD, (Reported) Montelukast Sodium 10 Mg Tablet, 10 MG PO HS PRN for ALLERGIES/ASTHMA, (Reported ) Multivitamin 1 Each Tablet, 1 TAB PO DAILY, (Reported) Pantoprazole Sodium 40 Mg Tablet.dr, 40 MG PO DAILY PRN for GI UPSET, (Reported) Propylene Glycol/Peg 400 15 Ml Drops, 2 DROPS OU QID PRN for DRY EYES, (Reported ) Rivaroxaban 20 Mg Tablet, 20 MG PO 1700, (Reported) Sucralfate 1 Gm Tablet, 1 GM PO ACHS PRN for GI UPSET, (Reported) DISSOLVE WITH 10ML WATER [Liq Vit B Comp] , 1 APPFUL PO DAILY, (Reported) Patient Home Medication List Home Medication List Reviewed: Yes Review of Systems Review of Systems Constitutional: see HPI EENTM: No Symptoms Reported Respiratory: No Symptoms Reported Cardiovascular: See HPI Gastrointestinal: See HPI Genitourinary: No Symptoms Reported Musculoskeletal: see HPI Skin: no symptoms reported Psychiatric/Neurological: See HPI Endocrine: No Symptoms Reported Hematologic/Lymphatic: No Symptoms Reported Past Yqwozpx-Qimtyf-Ndntht Hx Past Med/Social Hx: Reviewed Nursing Past Med/Soc Hx Patient Social History 2nd Hand Smoke Exposure: No Recent Foreign Travel: No Contact w/Someone Who Travel: No Recent Infectious Disease Expo: No Recent Hopitalizations: No Immunizations Up To Date Tetanus Booster (TDap): Unknown Date of Pneumonia Vaccine: Mar 14, 2016 Date of Influenza Vaccine: Apr 08, 2017 Seasonal Allergies Seasonal Allergies: Yes Past Medical History Surgeries: Yes Cardiac, Coronary Stent, Gallbladder, Hysterectomy, Orthopedic, Thyroidectomy Respiratory: Yes Asthma, Pulmonary Embolism, COPD Currently Using CPAP: No Currently Using BIPAP: No Cardiac: Yes (stents x 3, implanted heart monitor) Atrial Fibrillation, Coronary Artery Disease, Deep Vein Thrombosis, High Cholesterol, Hypertension Neurological: No Reproductive Disorders: No Female Reproductive Disorders: Denies Sexually Transmitted Disease: No HIV/AIDS: No Genitourinary: No Gastrointestinal: Yes Gastroesophageal Reflux, Gastrointestinal Bleed, Chronic Diarrhea, Gall Bladder Disease Musculoskeletal: Yes Arthritis, Rheumatoid Arthritis Endocrine: Yes (right thyroidectomy) Hypothyroidsim, Diabetes, Non-Insulin dep HEENT: Yes Cataract Loss of Vision: Denies Hearing Impairment: Denies Cancer: No Psychosocial: Yes Anxiety Integumentary: No Blood Disorders: No Adverse Reaction/Blood Tranf: No Family Medical History Reviewed Nursing Family Hx Arthritis 19 FATHER G8 SISTER Congenital heart disease 19 MOTHER G8 BROTHER Diabetes mellitus G8 BROTHER FH: CHF (congestive heart failure) 19 FATHER 19 MOTHER G8 BROTHER FH: CVA (cerebrovascular accident) 19 MOTHER G8 SISTER FH: hypercholesterolemia FH: musculoskeletal disease 19 FATHER G8 SISTER Glaucoma G8 SISTER Hypercholesterolemia Hypertension 19 MOTHER G8 SISTER Myocardial infarction G8 BROTHER Heart Disease, Hypertension Physical Exam Vital Signs Vital Signs - First Documented 03/17/18 22:32 Pulse 122 Resp 16 B/P (MAP) 173/111 (131) Pulse Ox 96 O2 Delivery Room Air Capillary Refill : Less Than 3 Seconds Height, Weight, BMI Height: 5'1.00" Weight: 144lbs. 6.0oz. 65.052340ho; 27.8 BMI Method:Stated General Appearance: WD/WN, Anxious HEENT: PERRL/EOMI, Normal ENT Inspection Neck: Normal Inspection Respiratory: Lungs Clear, Normal Breath Sounds, No Accessory Muscle Use, No Respiratory Distress Cardiovascular: No Edema, No Murmur, Normal Peripheral Pulses, Irregularly Irregular, Tachycardia Gastrointestinal: Normal Bowel Sounds, Soft, Tenderness (mild across the upper abdomen) Extremity: Normal Capillary Refill, Normal Inspection, No Pedal Edema Neurologic/Psychiatric: Alert, Oriented x3, No Motor/Sensory Deficits, stereotyper helper II- XII Norm as Tested, Other (normal heel to garrison and finger to nose. Anxious) Skin: Normal Color, Warm/Dry Progress/Results/Core Measures Results/Orders Lab Results Laboratory Tests Test 03/17/18 22:42 03/17/18 23:16 Range/Units White Blood Count 8.8 4.3-11.0 10^3/uL Red Blood Count 5.29 4.35-5.85 10^6/uL Hemoglobin 14.3 11.5-16.0 G/DL Hematocrit 45 35-52 % Mean Corpuscular Volume 85 80-99 FL Mean Corpuscular Hemoglobin 27 25-34 PG Mean Corpuscular Hemoglobin Concent 32 32-36 G/DL Red Cell Distribution Width 16.7 H 10.0-14.5 % Platelet Count 323 130-400 10^3/uL Mean Platelet Volume 10.4 7.4-10.4 FL Neutrophils (%) (Auto) 68 42-75 % Lymphocytes (%) (Auto) 18 12-44 % Monocytes (%) (Auto) 10 0-12 % Eosinophils (%) (Auto) 3 0-10 % Basophils (%) (Auto) 1 0-10 % Neutrophils # (Auto) 6.0 1.8-7.8 X 10^3 Lymphocytes # (Auto) 1.6 1.0-4.0 X 10^3 Monocytes # (Auto) 0.9 0.0-1.0 X 10^3 Eosinophils # (Auto) 0.3 0.0-0.3 10^3/uL Basophils # (Auto) 0.1 0.0-0.1 10^3/uL Prothrombin Time 27.6 H 12.2-14.7 SEC INR Comment 2.6 H 0.8-1.4 Activated Partial Thromboplast Time 38 H 24-35 SEC Sodium Level 142 135-145 MMOL/L Potassium Level 4.2 3.6-5.0 MMOL/L Chloride Level 104 98-107 MMOL/L Carbon Dioxide Level 25 21-32 MMOL/L Anion Gap 13 5-14 MMOL/L Blood Urea Nitrogen 18 7-18 MG/DL Creatinine 0.90 0.60-1.30 MG/DL Estimat Glomerular Filtration Rate > 60 BUN/Creatinine Ratio 20 Glucose Level 127 H 70-105 MG/DL Calcium Level 10.2 H 8.5-10.1 MG/DL Corrected Calcium 9.8 8.5-10.1 MG/DL Magnesium Level 2.2 1.8-2.4 MG/DL Total Bilirubin 0.6 0.1-1.0 MG/DL Aspartate Amino Transf (AST/SGOT) 22 5-34 U/L Alanine Aminotransferase (ALT/SGPT) 34 0-55 U/L Alkaline Phosphatase 91 40-136 U/L Myoglobin 76.4 10.0-92.0 NG/ML Troponin I < 0.30 <0.30 NG/ML B-Type Natriuretic Peptide 497.4 H <100.0 PG/ML Total Protein 7.4 6.4-8.2 GM/DL Albumin 4.5 3.2-4.5 GM/DL Thyroid Stimulating Hormone (TSH) 2.17 0.35-4.94 UIU/ML Free Thyroxine 1.65 H 0.70-1.48 NG/DL Digoxin Level 0.76 L 0.80-2.00 NG/ML Urine Color YELLOW Urine Clarity CLEAR Urine pH 8 5-9 Urine Specific [place] 1.010 L 1.016-1.022 Urine Protein NEGATIVE NEGATIVE Urine Glucose (UA) NEGATIVE NEGATIVE Urine Ketones NEGATIVE NEGATIVE Urine Nitrite NEGATIVE NEGATIVE Urine Bilirubin NEGATIVE NEGATIVE Urine Urobilinogen NORMAL NORMAL MG/DL Urine Leukocyte Esterase NEGATIVE NEGATIVE Urine RBC (Auto) NEGATIVE NEGATIVE Urine RBC NONE /HPF Urine WBC NONE /HPF Urine Squamous Epithelial Cells 0-2 /HPF Urine Crystals NONE /LPF Urine Bacteria NEGATIVE /HPF Urine Casts NONE /LPF Urine Mucus NEGATIVE /LPF Urine Culture Indicated NO My Orders Orders - ROSALIO ESTEVEZ MD Ct Head Wo-R/O Stroke (03/17/18 22:43) Cbc With Automated Diff (03/17/18 22:43) Magnesium (03/17/18 22:43) Chest 1 View, Ap/Pa Only (03/17/18 22:43) Ekg Tracing (03/17/18 22:43) Cardiac Profile 1 (03/17/18 22:43) Comprehensive Metabolic Panel (03/17/18 22:43) Myoglobin Serum (03/17/18 22:43) Protime With Inr (03/17/18 22:43) Partial Thromboplastin Time (03/17/18 22:43) O2 (03/17/18 22:43) Monitor-Rhythm Ecg Trace Only (03/17/18 22:43) Saline Lock/Iv-Start (03/17/18 22:43) BNP (03/17/18 22:43) Fentanyl Injection (Sublimaze Injection (03/17/18 22:45) Fentanyl Injection (Sublimaze Injection (03/17/18 22:41) Labetalol Injection (Normodyne Injection (03/17/18 22:41) Labetalol Injection (Normodyne Injection (03/17/18 23:00) Digoxin (03/17/18 22:48) Thyroid Stimulating Hormone (03/17/18 22:48) Free T4 (Free Thyroxine) (03/17/18 22:48) Ua Culture If Indicated (03/17/18 23:11) Ondansetron Injection (Zofran Injectio (03/18/18 01:00) Hydrocodone/Apap 5/325 Tablet (Lortab 5 (03/18/18 01:00) Iv Push Supervisor [employer] (03/17/18 ) Medications Given in ED Vital Signs/I&O 03/17/18 03/18/18 22:32 01:10 Pulse 122 100 Resp 16 13 B/P (MAP) 173/111 (131) 135/96 Pulse Ox 96 97 O2 Delivery Room Air Room Air Blood Pressure Mean: 131 Progress Progress Note : Progress Note Patient was treated with labetalol 10 mg IV and fentanyl. This improved her blood pressure and headache. Because she is anticoagulated and hypertensive, CT of the head was ordered to evaluate her headache. No acute hemorrhages or evidence of CVA were identified. Workup was grossly unremarkable. Since patient's symptoms were improving along with blood pressure and heart rate, Dr. Aguilar felt the patient could follow up in the outpatient setting. The problems she is being seen for today are chronic except for the headache. Headache was further treated with hydrocodone. She was given Zofran prophylactically with the hydrocodone. Patient did seem to be anxious and admitted to problems with anxiety. She does have anxiolytic sent home that she can take if she is still having this problem after returning home. Initial ECG Impression Date: Mar 17, 2018 Initial ECG Impression Time: 22:34 Initial ECG Rate: 113 Initial ECG Rhythm: A Fib/Flutter Initial ECG Impression: Atrial Fibrillation Comment A. fib with RVR. No ST elevation or depression. Diagnostic Imaging Diagonstic Imaging: CT Plain Films/CT/US/NM/MRI: head Comments CT head viewed by me and [facility] report reviewed. No acute abnormalities were appreciated. Diagonstic Imaging: Xray Plain Films/CT/US/NM/MRI: chest Comments Chest x-ray viewed by me. No acute abnormalities appreciated. Report not yet available. Departure Impression Primary Impression: Atrial fibrillation with RVR Additional Impressions: Hypertensive urgency Acute headache Qualified Codes: R51 - Headache Anxiety Disposition: 01 HOME, SELF-CARE Condition: Improved Departure-Patient Inst. Decision time for Depature: 00:45 Referrals: JUAN FRANCISCO VEGA MD (PCP/Family) Primary Care Physician Patient Instructions: Atrial Fibrillation (DC) Add. Discharge Instructions: Take your medications as prescribed. If you're still anxious or having headache an hour after taking the hydrocodone, you may take your anxiety medication as prescribed. Return to the emergency room if you have worsening symptoms. Contact Dr. Aguilar's office in the morning for further instructions. Follow-up with your primary care provider soon as possible. All discharge instructions reviewed with patient and/or family. Voiced understanding. Copy Copies To 1: JUAN FRANCISCO VEGA MD Copies To 2: LEANNA AGUILAR MD, JOSHUA T MD Mar 18, 2018 00:52
[2018-03-18] MEDS ORDERED: HYDROcodone/APAP 5 MG/325 MG (LORTAB) TAB PO ONE (01:00)
[2018-03-18] MEDS ORDERED: ONDANSETRON 4 MG/2 ML (SDV) Z0FRAN IVP ONE (01:00)
[2018-03-18 01:10] VITALS: BP 135/96
--- NOTE | 2018-03-18 06:02 | Diagnostic Imaging Report ---
Clinical indication: Patient with high blood pressure. Exam: Axial CT scan of the brain performed without IV contrast. Comparison: Head CT without contrast dated 12/10/2013. Findings: There is no evidence of acute cerebral infarct, intracranial hemorrhage, or gross mass effect. The brain parenchymal volume appears appropriate for patient's age. There is normal yao-white matter distinction. There is no significant midline shift or herniation. There is no evidence of hydrocephalus. The basal cisterns are unremarkable. The skull, extracranial soft tissue, and orbits are unremarkable. There is mild mucosal thickening involving both maxillary sinuses and minimal mucosal thickening involving the ethmoid sinus. There is bony thickening/sclerosis of the sphenoid sinus and both maxillary sinuses. Temporal bones show no significant abnormality. Impression: Mild paranasal sinus disease. Otherwise, unremarkable CT scan of brain for age. I agree with [facility] report. Dictated by: Dictated on workstation # [id number]
--- NOTE | 2018-03-18 06:41 | Diagnostic Imaging Report ---
Clinical indication: Patient with high blood pressure. Exam: Portable chest x-ray upright view. Comparison: Portable chest x-ray upright view dated 02/01/2018. Findings: There is interval decreased pulmonary vascular congestion with mild pulmonary vascular congestion centrally seen. There is improved aeration of both lungs with persistent mild bibasilar atelectasis. There is no pleural effusion or pneumothorax. Cardiac silhouette is now within normal limits. Loop recorder is again seen overlying left chest. There are degenerative spurs involving the thoracic spine. Impression: 1: Interval resolution of the pulmonary vascular congestion and resolution of cardiomegaly. 2: There is residual mild bibasilar atelectasis. Dictated by: Dictated on workstation # [id number]
== END 2018-03-18 01:10 | disposition home or self-care (01) ==
LOC: EDUNIT# 22:14 → ER 22:15
DX: I48.2 Chronic atrial fibrillation (principal); I16.0 Hypertensive urgency; R51 Headache; F41.9 Anxiety disorder, unspecified; I10 Essential (primary) hypertension; I25.10 Atherosclerotic heart disease of native coronary artery without angina pectoris; E78.00 Pure hypercholesterolemia, unspecified; K21.9 Gastro-esophageal reflux disease without esophagitis; J44.9 Chronic obstructive pulmonary disease, unspecified; E03.9 Hypothyroidism, unspecified; E11.9 Type 2 diabetes mellitus without complications; Z82.49 Family history of ischemic heart disease and other diseases of the circulatory system; Z86.718 Personal history of other venous thrombosis and embolism; Z87.19 Personal history of other diseases of the digestive system; Z90.89 Acquired absence of other organs; Z90.710 Acquired absence of both cervix and uterus; Z95.5 Presence of coronary angioplasty implant and graft; Z79.84 Long term (current) use of oral hypoglycemic drugs; Z79.01 Long term (current) use of anticoagulants; Z79.51 Long term (current) use of inhaled steroids; Z88.1 Allergy status to other antibiotic agents; Z88.0 Allergy status to penicillin; Z88.8 Allergy status to other drugs, medicaments and biological substances
CPT/HCPCS: 36415; 70450; 71045; 80053; 80162; 81000; 83735; 83874; 83880; 84439; 84443; 84484; 85025; 85610; 85730; 93005; 93041; 96374; 96375

== ENCOUNTER → 2018-04-08 | Outpatient (CLI) | payer MEDICARE, OTHER ==
[2018-04-08 08:28] LABS: BUN/CREATININE RATIO 20; CARBON DIOXIDE 28 MMOL/L (21-32); CHLORIDE 103 MMOL/L (98-107); CREATININE SERUM 0.85 MG/DL (0.60-1.30); POTASSIUM 4.1 MMOL/L (3.6-5.0); SODIUM 139 MMOL/L (135-145)
[2018-04-08 08:29] LABS: CALCIUM 9.3 MG/DL (8.5-10.1); GFR ESTIMATED > 60; GLUCOSE 201 MG/DL (70-105)
== END ==
LOC: LAB 07:58
PROVIDERS: ATTEND Internal Medicine Cardiovascular Disease
DX: I48.0 Paroxysmal atrial fibrillation (principal)
CPT/HCPCS: 36415; 80048

== ENCOUNTER 2018-06-22 11:37 | Emergency (ER) | payer MEDICARE, OTHER ==
[~2018-06-22] VITALS: Ht 162.6 cm; Wt 72.6 kg
[2018-06-22] MEDS ORDERED: NITROGLYCERIN 0.4 MG SL TABS BTL 25'S SL PRN (12:00)
[2018-06-22 12:09] LABS: BASOPHILS % (AUTO) 1 % (0-10); EOSINOPHILS # (AUTO) 0.3 10^3/uL (0.0-0.3); EOSINOPHILS % (AUTO) 8 % (0-10); HEMATOCRIT 43 % (35-52); HEMOGLOBIN 13.4 G/DL (11.5-16.0); LYMPHOCYTES # (AUTO) 0.9 X 10^3 (1.0-4.0); LYMPHOCYTES % (AUTO) 21 % (12-44); MEAN CORPUSCULAR HEMOGLOBIN 27 PG (25-34); MEAN CORPUSCULAR HGB CONC 32 G/DL (32-36); MEAN CORPUSCULAR VOLUME 85 FL (80-99); MONOCYTES # (AUTO) 0.2 X 10^3 (0.0-1.0); MONOCYTES % (AUTO) 5 % (0-12); NEUTROPHILS # (AUTO) 2.9 X 10^3 (1.8-7.8); NEUTROPHILS % (AUTO) 66 % (42-75); PLATELET COUNT 264 10^3/uL (130-400); WHITE BLOOD COUNT 4.4 10^3/uL (4.3-11.0)
[2018-06-22 12:28] LABS: INR 1.5 (0.8-1.4); PROTHROMBIN TIME PATIENT 18.1 SEC (12.2-14.7)
[2018-06-22 12:35] LABS: ALANINE AMINOTRANSFERASE 18 U/L (0-55); ALBUMIN 4.3 GM/DL (3.2-4.5); ALKALINE PHOSPHATASE 83 U/L (40-136); BILIRUBIN,TOTAL 0.7 MG/DL (0.1-1.0); BUN/CREATININE RATIO 17; CALCIUM 10.3 MG/DL (8.5-10.1); CARBON DIOXIDE 26 MMOL/L (21-32); CHLORIDE 103 MMOL/L (98-107); CREATININE SERUM 0.86 MG/DL (0.60-1.30); GFR ESTIMATED > 60; GLUCOSE 202 MG/DL (70-105); MAGNESIUM 2.1 MG/DL (1.8-2.4); POTASSIUM 3.7 MMOL/L (3.6-5.0); SODIUM 140 MMOL/L (135-145); TOTAL PROTEIN 7.3 GM/DL (6.4-8.2)
[2018-06-22 12:56] LABS: FREE T4 (FREE THYROXINE) 1.36 NG/DL (0.70-1.48); MYOGLOBIN SERUM 73.3 NG/ML (10.0-92.0)
--- NOTE | 2018-06-22 13:08 | Diagnostic Imaging Report ---
INDICATION: Chest pain. Comparison with 03/17/2018. FINDINGS: The lungs are well aerated. There has been no infiltrates developed. The heart remains mildly enlarged. There is no pulmonary edema. No pneumothorax or pleural effusion. Implanted media monitor remains present unchanged. IMPRESSION: Cardiomegaly with no acute changes when compared with previous exam. Dictated by: Dictated on workstation # [id number]
[2018-06-22 14:12] VITALS: BP 133/56
--- NOTE | 2018-06-22 14:13 | ED Chest Pain ---
General Chief Complaint: Chest Pain Stated Complaint: CHEST PAIN Nursing Triage Note: THE PT IS ASSISTED TO THE ROOM BY WHEELCHAIR. NO DISTRESS IS SEEN ON ARRIVAL. THE PT IS SLIGHTLY ANXIOUS. LOC IS NORMAL FOR THE PT. Nursing Sepsis Screen: No Definite Risk Source: patient, old records Exam Limitations: no limitations History of Present Illness Date Seen by Provider: Jun 22, 2018 Time Seen by Provider: 11:45 Initial Comments This 78-year-old woman presents to the emergency room with complaints of chest pain. Pain started yesterday in the right shoulder and arm. Today she had pain across the chest that radiated into the left arm. She feels like there is "a weight on my chest". She also noticed some shortness of breath and elevated blood pressure during this episode. Pain was very intense at home but is now at 7/10 and is decreasing. Patient had an ablation performed for atrial fibrillation at [facility] on April 25. Dr. Aguilar is her primary carbon blocks press operator. Dr. Jesus is her preparation room worker. Dr. Elaine is her primary care provider. Pain seems somewhat atypical in its nature. Pain increases some with inspiration. It is reproducible with palpation. She thinks it may be related to her arthritis. She is anticoagulated on Xarelto. Allergies and Home Medications Allergies Coded Allergies: azithromycin (Verified Allergy, Unknown, 06/23/12) cephalexin (Verified Allergy, Unknown, 04/23/06) levofloxacin (Verified Allergy, Unknown, 06/23/12) meloxicam (Verified Allergy, Unknown, 06/23/12) metoprolol (Verified Allergy, Unknown, NECK SPASMS, 10/18/16) metronidazole (Verified Allergy, Unknown, 06/23/12) morphine (Verified Allergy, Unknown, 04/23/06) theophylline (Verified Allergy, Unknown, 04/23/06) prednisone (Verified Adverse Reaction, Intermediate, STOMACH BLEED, ) norfloxacin (Verified Adverse Reaction, Unknown, GI INTOLERANCE, 09/11/07) trovafloxacin (Verified Adverse Reaction, Unknown, GI INTOLERANCE, 09/11/07) Home Medications Albuterol Sulfate 2.5 Mg/3 Ml Vial.neb, 2.5 MG NEB QID PRN for SHORTNESS OF BREATH, (Reported) Albuterol Sulfate 1 Puff Puff, 2 PUFF INH Q4H PRN for SHORTNESS OF BREATH, ( Reported) Alprazolam 0.25 Mg Tablet, 0.25-1 TAB PO Q8H PRN for ANXIETY, (Reported) TAKES 1/4 TO 1 (0.25MG) TABLET Amiodarone HCl 200 Mg Tablet, 100 MG PO BID, (Reported) TAKES 1/2 (200MG) TABLET Bacillus Coagulans 1 Each Tab.chew, 1 TAB.CHEW PO DAILY, (Reported) Budesonide/Formoterol Fumarate 10.2 Gm Hfa.aer.ad, 2 PUFF IH BID PRN for SHORTNESS OF BREATH, (Reported) EITHER USES BREO OR SYMBICROT, DOES NOT USE THEM TOGETHER Diltiazem HCl 120 Mg Cap.er.24h, 120 MG PO BID PRN for HR >100, (Reported) Esomeprazole Magnesium 20 Mg Capsule.dr, 20 MG PO DAILY PRN PRN for HEARTBURN, ( Reported) Fish Oil/Dha/Epa 1 Each Capsule, 1,200 MG PO DAILY, (Reported) Fluticasone/Vilanterol 1 Each Blst.w.dev, 1 PUFF INH DAILY, (Reported) USES EITHER BREO OR SYMBICORT, DOES NOT USE THEM TOGETHER Glipizide 5 Mg Tablet, 2.5 MG PO BID, (Reported) TAKES 1/2 OF A (5 MG) TABLET Hyoscyamine Sulfate 0.125 Mg Tablet, 0.125 MG PO Q6H PRN for SPASMS, (Reported) Levothyroxine Sodium 88 Mcg Tablet, 88 MCG PO DAILY, (Reported) Meclizine HCl 25 Mg Tablet, 25 MG PO UD, (Reported) Montelukast Sodium 10 Mg Tablet, 10 MG PO HS PRN for ALLERGIES/ASTHMA, (Reported ) Multivitamin 1 Each Tablet, 1 TAB PO DAILY, (Reported) Pantoprazole Sodium 40 Mg Tablet.dr, 40 MG PO DAILY PRN for GI UPSET, (Reported) Propylene Glycol/Peg 400 15 Ml Drops, 2 DROPS OU QID PRN for DRY EYES, (Reported ) Rivaroxaban 20 Mg Tablet, 20 MG PO 1700, (Reported) Sucralfate 1 Gm Tablet, 1 GM PO ACHS PRN for GI UPSET, (Reported) DISSOLVE WITH 10ML WATER [Liq Vit B Comp] , 1 APPFUL PO DAILY, (Reported) Patient Home Medication List Home Medication List Reviewed: Yes Review of Systems Review of Systems Constitutional: no symptoms reported EENTM: No Symptoms Reported Respiratory: See HPI Cardiovascular: See HPI Gastrointestinal: No Symptoms Reported Genitourinary: No Symptoms Reported Musculoskeletal: see HPI Skin: no symptoms reported Psychiatric/Neurological: No Symptoms Reported Endocrine: No Symptoms Reported Hematologic/Lymphatic: No Symptoms Reported Past Juoonxc-Sersma-Sdlxay Hx Past Med/Social Hx: Reviewed and Corrections made Patient Social History 2nd Hand Smoke Exposure: No Recent Foreign Travel: No Contact w/Someone Who Travel: No Recent Infectious Disease Expo: No Recent Hopitalizations: No Physical Abuse: No Sexual Abuse: No Mistreated: No Fear: No Immunizations Up To Date Tetanus Booster (TDap): Unknown Date of Pneumonia Vaccine: Mar 14, 2016 Date of Influenza Vaccine: Apr 08, 2017 Seasonal Allergies Seasonal Allergies: Yes Past Medical History Surgeries: Yes Cardiac (ablation), Coronary Stent, Gallbladder, Hysterectomy, Orthopedic, Thyroidectomy Respiratory: Yes Asthma, Pulmonary Embolism, COPD Currently Using CPAP: No Currently Using BIPAP: No Cardiac: Yes (stents x 3, implanted heart monitor) Atrial Fibrillation, Coronary Artery Disease, Deep Vein Thrombosis, High Cholesterol, Hypertension Neurological: No Reproductive Disorders: No Female Reproductive Disorders: Denies Sexually Transmitted Disease: No HIV/AIDS: No Genitourinary: No Gastrointestinal: Yes Gastroesophageal Reflux, Gastrointestinal Bleed, Chronic Diarrhea, Gall Bladder Disease Musculoskeletal: Yes Arthritis, Rheumatoid Arthritis Endocrine: Yes (right thyroidectomy) Hypothyroidsim, Diabetes, Non-Insulin dep HEENT: Yes Cataract Loss of Vision: Denies Hearing Impairment: Denies Cancer: No Psychosocial: Yes Anxiety Integumentary: No Blood Disorders: No Adverse Reaction/Blood Tranf: No Family Medical History Reviewed Nursing Family Hx Arthritis 19 FATHER G8 SISTER Congenital heart disease 19 MOTHER G8 BROTHER Diabetes mellitus G8 BROTHER FH: CHF (congestive heart failure) 19 FATHER 19 MOTHER G8 BROTHER FH: CVA (cerebrovascular accident) 19 MOTHER G8 SISTER FH: hypercholesterolemia FH: musculoskeletal disease 19 FATHER G8 SISTER Glaucoma G8 SISTER Hypercholesterolemia Hypertension 19 MOTHER G8 SISTER Myocardial infarction G8 BROTHER Heart Disease, Hypertension Physical Exam Vital Signs Vital Signs - First Documented 06/22/18 12:09 Temp 98.3 Pulse 66 Resp 20 B/P (MAP) 193/94 (127) Pulse Ox 99 Capillary Refill : Less Than 3 Seconds Height, Weight, BMI Height: 5'4.00" Weight: 160lbs. 6.0oz. 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 Norm as Tested Skin: Normal Color, Warm/Dry Progress/Results/Core Measures Results/Orders Lab Results Laboratory Tests Test 06/22/18 11:50 06/22/18 13:54 Range/Units White Blood Count 4.4 4.3-11.0 10^3/uL Red Blood Count 5.00 4.35-5.85 10^6/uL Hemoglobin 13.4 11.5-16.0 G/DL Hematocrit 43 35-52 % Mean Corpuscular Volume 85 80-99 FL Mean Corpuscular Hemoglobin 27 25-34 PG Mean Corpuscular Hemoglobin Concent 32 32-36 G/DL Red Cell Distribution Width 15.0 H 10.0-14.5 % Platelet Count 264 130-400 10^3/uL Mean Platelet Volume 10.0 7.4-10.4 FL Neutrophils (%) (Auto) 66 42-75 % Lymphocytes (%) (Auto) 21 12-44 % Monocytes (%) (Auto) 5 0-12 % Eosinophils (%) (Auto) 8 0-10 % Basophils (%) (Auto) 1 0-10 % Neutrophils # (Auto) 2.9 1.8-7.8 X 10^3 Lymphocytes # (Auto) 0.9 L 1.0-4.0 X 10^3 Monocytes # (Auto) 0.2 0.0-1.0 X 10^3 Eosinophils # (Auto) 0.3 0.0-0.3 10^3/uL Basophils # (Auto) 0.0 0.0-0.1 10^3/uL Prothrombin Time 18.1 H 12.2-14.7 SEC INR Comment 1.5 H 0.8-1.4 Activated Partial Thromboplast Time 36 H 24-35 SEC Sodium Level 140 135-145 MMOL/L Potassium Level 3.7 3.6-5.0 MMOL/L Chloride Level 103 98-107 MMOL/L Carbon Dioxide Level 26 21-32 MMOL/L Anion Gap 11 5-14 MMOL/L Blood Urea Nitrogen 15 7-18 MG/DL Creatinine 0.86 0.60-1.30 MG/DL Estimat Glomerular Filtration Rate > 60 BUN/Creatinine Ratio 17 Glucose Level 202 H 70-105 MG/DL Calcium Level 10.3 H 8.5-10.1 MG/DL Corrected Calcium 10.1 8.5-10.1 MG/DL Magnesium Level 2.1 1.8-2.4 MG/DL Total Bilirubin 0.7 0.1-1.0 MG/DL Aspartate Amino Transf (AST/SGOT) 18 5-34 U/L Alanine Aminotransferase (ALT/SGPT) 18 0-55 U/L Alkaline Phosphatase 83 40-136 U/L Myoglobin 73.3 10.0-92.0 NG/ML Troponin I < 0.30 < 0.30 <0.30 NG/ML Total Protein 7.3 6.4-8.2 GM/DL Albumin 4.3 3.2-4.5 GM/DL Thyroid Stimulating Hormone (TSH) 1.30 0.35-4.94 UIU/ML Free Thyroxine 1.36 0.70-1.48 NG/DL My Orders Orders - ROSALIO ESTEVEZ MD Cbc With Automated Diff (06/22/18 11:51) Magnesium (06/22/18 11:51) Chest 1 View, Ap/Pa Only (06/22/18 11:51) Ekg Tracing (06/22/18 11:51) Cardiac Profile 1 (06/22/18 11:51) Comprehensive Metabolic Panel (06/22/18 11:51) Myoglobin Serum (06/22/18 11:51) Protime With Inr (06/22/18 11:51) Partial Thromboplastin Time (06/22/18 11:51) O2 (06/22/18 11:51) Monitor-Rhythm Ecg Trace Only (06/22/18 11:51) Nitroglycerin 0.4 Mg Btl 25's (Nitrostat (06/22/18 12:00) Saline Lock/Iv-Start (06/22/18 11:51) Free T4 (Free Thyroxine) (06/22/18 11:50) Thyroid Stimulating Hormone (06/22/18 11:50) Troponin I (06/22/18 14:00) Medications Given in ED Current Medications Medications Dose Ordered Sig/Mary Route Start Time Stop Time Status Last Admin Dose Admin Nitroglycerin 0.4 mg UD PRN SL 06/22/18 12:00 06/22/18 15:04 DC 06/22/18 12:05 0.4 MG Vital Signs/I&O 06/22/18 06/22/18 06/22/18 12:09 14:12 15:02 Temp 98.3 98.6 98.6 Pulse 66 61 66 Resp 20 18 18 B/P (MAP) 193/94 (127) 133/56 (81) 188/90 (122) Pulse Ox 99 97 99 Blood Pressure Mean: 127 Progress Progress Note #1: Time: 13:30 Progress Note Patient was noted to be rather hypertensive. She was treated with nitroglycerin. Pain is now gone. Patient strongly desires to be dismissed home. I reviewed her chart and found prior cardiac catheter report and stress test report. Case was discussed with Dr. Santana. Since patient is pain-free at this time, he agrees a four-hour rule out is a reasonable plan. Patient is agreeable to this. A troponin will be drawn at 14:00 which is approximately 4 hours from the time of onset. Progress Note #2: Time: 14:35 Progress Note Troponin was negative. Patient feels well and would like to go home. We discussed return precautions and follow-up. By the nature of her pain, patient believes this is either related to arthritis or acid reflux. She intends to restart her Carafate and antacid medications. Initial ECG Impression Date: Jun 22, 2018 Initial ECG Impression Time: 11:51 Initial ECG Rate: 76 Initial ECG Rhythm: Normal Sinus Initial ECG Impression: Normal Comment Normal sinus rhythm with no ST elevation or depression. No abnormal intervals or axis deviation. Diagnostic Imaging Diagonstic Imaging: Xray Plain Films/CT/US/NM/MRI: chest Comments Chest x-ray viewed by me and report reviewed. See report below: NAME: [facility] REC#: [id number] PT STATUS: REG ER : 1940 PHYSICIAN: ROSALIO ESTEVEZ MD ADMIT DATE: 06/22/18/ER Draft Date of Exam:06/22/18 CHEST 1 VIEW, AP/PA ONLY INDICATION: Chest pain. Comparison with 03/17/2018. FINDINGS: The lungs are well aerated. There has been no infiltrates developed. The heart remains mildly enlarged. There is no pulmonary edema. No pneumothorax or pleural effusion. Implanted monitor worker remains present unchanged. IMPRESSION: Cardiomegaly with no acute changes when compared with previous exam. Dictated on workstation # [id number] Dict: 06/22/18 1306 Trans: 06/22/18 1308 [facility] [id number] Interpreted by: DYAN VERDE MD Departure Impression Primary Impression: Atypical chest pain Additional Impression: Episode of hypertension Disposition: 01 HOME, SELF-CARE Condition: Improved Departure-Patient Inst. Decision time for Depature: 14:40 Referrals: JUAN FRANCISCO ELAINE MD (PCP/Family) Primary Care Physician Patient Instructions: Chest Pain (DC) Add. Discharge Instructions: Resume your Carafate and antiacid medications. Follow-up with your carbon blocks press operator next week. Return to the ER if symptoms are worsening. All discharge instructions reviewed with patient and/or family. Voiced understanding. Copy Copies To 1: LEANNA AGUILAR MD Copies To 2: JUAN FRANCISCO ELAINE MD, JOSHUA T MD Jun 22, 2018 14:13
[2018-06-22 15:02] VITALS: BP 188/90
== END 2018-06-22 15:04 | disposition home or self-care (01) ==
LOC: EDUNIT# 11:37 → ER 11:38
DX: R07.89 Other chest pain (principal); I10 Essential (primary) hypertension; I48.91 Unspecified atrial fibrillation; J44.9 Chronic obstructive pulmonary disease, unspecified; I25.10 Atherosclerotic heart disease of native coronary artery without angina pectoris; K21.9 Gastro-esophageal reflux disease without esophagitis; E78.00 Pure hypercholesterolemia, unspecified; M06.9 Rheumatoid arthritis, unspecified; F41.9 Anxiety disorder, unspecified; E11.9 Type 2 diabetes mellitus without complications; E03.9 Hypothyroidism, unspecified; Z82.49 Family history of ischemic heart disease and other diseases of the circulatory system; Z86.718 Personal history of other venous thrombosis and embolism; Z87.19 Personal history of other diseases of the digestive system; Z79.01 Long term (current) use of anticoagulants; Z88.0 Allergy status to penicillin; Z88.5 Allergy status to narcotic agent; Z88.8 Allergy status to other drugs, medicaments and biological substances; Z79.51 Long term (current) use of inhaled steroids; Z79.4 Long term (current) use of insulin; Z95.5 Presence of coronary angioplasty implant and graft; Z90.710 Acquired absence of both cervix and uterus; Z90.89 Acquired absence of other organs; Z86.711 Personal history of pulmonary embolism
CPT/HCPCS: 36415; 71045; 80053; 83735; 83874; 84439; 84443; 84484; 85025; 85610; 85730; 93005

== ENCOUNTER 2018-10-10 12:46 | Outpatient (CLI) | payer MEDICARE, OTHER ==
[~2018-10-10] VITALS: Ht 162.6 cm; Wt 74.1 kg
[~2018-10-10 12:46] MED LIST changes: -DILT120C63 PO; +DILT120C94 PO; -RIVA20TA PO; +RIVA20TA2 PO
[2018-10-10] MEDS ORDERED: LEVO75TA6 PO (13:00)
[2018-10-10 13:04] VITALS: BP 160/75
== END 2018-10-10 15:15 | disposition home or self-care (01) ==
LOC: PREOP 12:46
PROVIDERS: ATTEND Orthopaedic Surgery
DX: Z01.818 Encounter for other preprocedural examination (principal)
CPT/HCPCS: 87081

== ENCOUNTER 2018-10-16 08:08 | Day surgery (SDC) | payer MEDICARE, OTHER ==
--- NOTE | 2018-10-07 15:37 | HISTORY AND PHYSICAL ---
DATE OF SERVICE: This will be the outpatient surgery on 10/16/2018 for right ring finger A1 modesto release. HISTORY OF PRESENT ILLNESS: The patient is a 78-year-old right hand dominant female with complaints of right ring finger catching and locking. She reports this has been ongoing since May. She reports swelling in her hand. She reports this is painful and activity limiting. Due to failure to improve with conservative measures, the patient elected to proceed with surgical intervention. REVIEW OF SYSTEMS: No chest pain, no shortness of breath, and no dysuria. PAST MEDICAL HISTORY: Allergic rhinitis, anemia, atrial fibrillation, asthma, COPD, coronary artery disease, diverticulosis, diabetes mellitus, edema, fatigue, reflux, hyperlipidemia, hypothyroidism, osteoporosis. PAST SURGICAL HISTORY: Cardiac catheterization, thyroid biopsy. FAMILY HISTORY: Significant for coronary artery disease, asthma. PRIMARY CARE PROVIDER: Dr. Elaine. MEDICATIONS: Albuterol, Xarelto, sucralfate, meclizine, hyoscyamine, Symbicort, Synthroid and glipizide. ALLERGIES: THEOPHYLLINE, PREDNISONE, CEPHALEXIN, TROVAN, NOROXIN, AZITHROMYCIN, LEVAQUIN, MORPHINE, METRONIDAZOLE. SOCIAL HISTORY: The patient denies alcohol, tobacco use. PHYSICAL EXAMINATION: GENERAL: The patient is well developed, well nourished, in no acute distress. HEENT: Normocephalic, atraumatic. Pupils are equal, round and reactive to light. Oropharynx is clear. NECK: Supple. No lymphadenopathy. LUNGS: Clear to auscultation bilaterally. HEART: Regular rate and rhythm. ABDOMEN: Soft, nontender, nondistended. EXTREMITIES: Examination of the right hand demonstrates tenderness over A1 modesto in her ring finger. There is a palpable nodule. She can demonstrate active triggering. She lacks complete active full extension of the DIP and PIP joints. No cords are noted. IMPRESSION: Right ring finger trigger finger. PLAN: Right ring finger trigger release. Risks, benefits, options, ramifications and recovery were discussed at length with the patient. She understands and wished to proceed. Job ID: [id number] DocumentID: [id number] Dictated Date: 10/07/2018 11:12:25 Radiopharmacist Date: 10/07/2018 12:43:23 Dictated By: JULIET WEBER MD
[~2018-10-16] VITALS: Ht 162.6 cm; Wt 74.1 kg
[~2018-10-16 08:08] MED LIST changes: +LEVO75TA6 PO
[2018-10-16 08:15] VITALS: BP 156/67
[2018-10-16] MEDS ORDERED: LACTATED RINGERS 1,000 ML IV PRN (08:21)
--- NOTE | 2018-10-16 08:24 | Progress Note-Pre Operative ---
Pre-Operative Progress Note H&P Reviewed The H&P was reviewed, patient examined and no changes noted. Date Seen by Provider: Oct 16, 2018 Time Seen by Provider: 08:24 Date H&P Reviewed: Oct 16, 2018 Time H&P Reviewed: 08:24 Pre-Operative Diagnosis: right ring and long trigger fingers JULIET WEBER MD Oct 16, 2018 08:24
--- NOTE | 2018-10-16 08:25 | Progress Note-Post Operative ---
Post-Operative Progess Note Surgeon (s)/Copier Technician (s) Surgeon JULIET WEBER MD Copier Technician: Trevor Montes Pre-Operative Diagnosis right ring and long trigger fingers Post-Operative Diagnosis right ring and long trigger fingers Procedure & Operative Findings Date of Procedure 10/16/18 Procedure Performed/Findings right ring and long finger A1 modesto releases Anesthesia Type MAC plus local Estimated Blood Loss Estimated blood loss (mL): minimal Specimens/Packing Specimens Removed none Packing: none JULIET WEBER MD Oct 16, 2018 08:25
[2018-10-16] MEDS ORDERED: CLINDAMYCIN 600 MG/50 ML IVPB 50 ML IV ONE (08:30)
[2018-10-16] MEDS ORDERED: HYDROcodone/APAP 5 MG/325 MG (LORTAB) TAB PO PRN (08:30)
[2018-10-16] MEDS ORDERED: proPOfol 200 MG/20 ML (DIPRIVAN) VIAL IV ONE (09:25)
[2018-10-16] MEDS ORDERED: MIDAZOLAM 2 MG/2 ML (VERSED) VIAL ONE (09:26)
[2018-10-16] MEDS ORDERED: fentaNYL INJECTION 100 MCG/2 ML AMP ONE (09:26)
[2018-10-16] MEDS ORDERED: BUPIVACAINE 0.5% 30 ML (SENSORCAINE) VIAL ONE (09:54)
[2018-10-16] MEDS ORDERED: LIDOCAINE 1% INJ 20 ML 20 ML VIAL ONE (09:54)
[2018-10-16] MEDS ORDERED: ONDANSETRON 4 MG/2 ML (SDV) Z0FRAN IVP PRN (10:45)
[2018-10-16] MEDS ORDERED: HYDROmorphone 2 MG/ML VIAL (DILAUDID) IV ONE (10:45)
[2018-10-16 11:35] VITALS: BP 178/75
[2018-10-16] MEDS ORDERED: HYDR-3812 PO (11:51)
[2018-10-16 12:05] VITALS: BP 170/86
[2018-10-16 12:15] VITALS: BP 170/86
--- NOTE | 2018-10-16 13:43 | OPERATIVE REPORT ---
DATE OF SERVICE: 10/16/2018 PREOPERATIVE DIAGNOSES: 1. Right ring finger trigger finger. 2. Right long finger trigger finger. POSTOPERATIVE DIAGNOSES: 1. Right ring finger trigger finger. 2. Right long finger trigger finger. PROCEDURES: 1. Right ring finger A1 modesto release. 2. Right long finger A1 modesto release. SURGEON: Benjamin Weber MD SUPERVISOR CEREAL: Trevor Montes, who assisted throughout the procedure and closed the incisions. ANESTHESIA: Monitored anesthesia care plus local by Alex Pino. TOURNIQUET TIME: 5 minutes at 250 mmHg. ESTIMATED BLOOD LOSS: Minimal. DRAINS: None. COMPLICATIONS: None. POSTOPERATIVE PLAN: Routine protocol. The patient was transferred to the recovery room awake and stable condition. STATEMENT OF MEDICAL NECESSITY: The patient is a 78-year-old female with complaints of right ring and long finger catching and locking. She had primarily ring finger symptoms with associated swelling and tenderness, but reported the long finger started recently as well and due to functional impairment and failure to improve with conservative measures, the patient elected to proceed with surgical intervention. DESCRIPTION OF PROCEDURE: After risks and benefits of procedure were discussed and questions were answered, an informed consent was signed and placed on chart. The operative site was confirmed in the preoperative holding area initialed by the surgeon. The patient was then transferred to the operating room. After adequate levels of monitored anesthesia care was obtained, a timeout was called confirming the operative sites. The incision sites over the long and ring fingers were then infiltrated with a combination of plain lidocaine and plain Marcaine. The right upper extremity was then prepped and draped in the usual sterile fashion with the arm elevated, tourniquet was inflated to 250 mmHg. Standard incisions were made over the A1 pulleys of the ring and long fingers and underlying soft tissues were carefully dissected. The A1 modesto was identified and incised longitudinally on both the ring and long fingers. This was confirmed fully released. The fingers were taken through range of motion with no catching or locking. No abnormalities were noted in the flexor tendons of the long finger; however, the ring finger demonstrated significant fraying of the superficial flexor tendon, but no full disruption. Tourniquet was deflated. Pressure was used for hemostasis. The wounds were copiously irrigated and closed with 4-0 nylon in simple interrupted fashion. Soft dressing was applied. The patient was transferred to recovery room awake and in stable condition. Job ID: [id number] DocumentID: [id number] Dictated Date: 10/16/2018 10:37:21 Crtts Date: 10/16/2018 13:42:54 Dictated By: BENJAMIN WEBER MD
--- NOTE | 2018-10-16 14:19 | Anesthesia-General Post-Op ---
MAC Patient Condition Mental Status/LOC: Same as Preop Cardiovascular: Satisfactory Nausea/Vomiting: Absent Respiratory: Satisfactory Pain: Controlled Complications: Absent Post Op Complications Complications None Follow Up Care/Instructions Patient Instructions None needed. Anesthesiology Discharge Order Discharge Order Patient is doing well, no complaints, stable vital signs, no apparent adverse anesthesia problems. No complications reported per nursing. JARETT MCKNIGHT CRNA Oct 16, 2018 14:19
== END 2018-10-16 12:25 | disposition home or self-care (01) ==
LOC: SDC 08:08
PROVIDERS: ATTEND Orthopaedic Surgery
DX: M65.341 Trigger finger, right ring finger (principal); M65.331 Trigger finger, right middle finger; E11.9 Type 2 diabetes mellitus without complications; E78.2 Mixed hyperlipidemia; I25.10 Atherosclerotic heart disease of native coronary artery without angina pectoris; I48.0 Paroxysmal atrial fibrillation; J44.9 Chronic obstructive pulmonary disease, unspecified; E89.0 Postprocedural hypothyroidism; I65.23 Occlusion and stenosis of bilateral carotid arteries; D64.9 Anemia, unspecified; F41.9 Anxiety disorder, unspecified; M81.0 Age-related osteoporosis without current pathological fracture; M06.9 Rheumatoid arthritis, unspecified; K21.9 Gastro-esophageal reflux disease without esophagitis; Z88.1 Allergy status to other antibiotic agents; Z79.84 Long term (current) use of oral hypoglycemic drugs; Z79.899 Other long term (current) drug therapy; Z86.711 Personal history of pulmonary embolism; Z96.653 Presence of artificial knee joint, bilateral; Z86.718 Personal history of other venous thrombosis and embolism; Z95.5 Presence of coronary angioplasty implant and graft; Z87.19 Personal history of other diseases of the digestive system; Z79.01 Long term (current) use of anticoagulants
CPT/HCPCS: 82962

== ENCOUNTER 2018-12-28 03:48 | Emergency (ER) | payer MEDICARE, OTHER ==
[~2018-12-28] VITALS: Ht 154.9 cm; Wt 72.6 kg
[~2018-12-28 03:48] MED LIST changes: +HYDR-3812 PO
--- OUTSIDE RECORDS SUMMARY | 2018-12-28 03:55 | XMS REPORT | Encounter Summary ---
Author Author [facility] Organization [facility] Address Unknown Phone Unavailable Care Team Providers Care Log Driver Name Role Phone Clarice Elaine MD PCP Reason for Referral * Consult, Test & Treat (Routine) Referred By Contact Referred To Contact Status Reason Specialty Diagnoses / Procedures Doug Zapien MD [address] [place] [id number] New Request Procedures REQUEST FOR CARDIOLOGY APPOINTMENT * (Routine) Referred By Contact Referred To Contact Status Reason Specialty Diagnoses / Procedures Doug Zapien MD [address] [place] [address] [phone] New Request Procedures REQUEST FOR CARDIOLOGY APPOINTMENT Reason for Visit * Reason Comments Paroxysmal Afib post ablation follow up Atrial Flutter * (Routine) Referred By Contact Referred To Contact Status Reason Specialty Diagnoses / Procedures Doug Zapien MD [address] [place] [address] [phone] New Request Procedures REQUEST FOR CARDIOLOGY APPOINTMENT Encounter Details Care Team Description Date Type Department Doug Zapien MD [address] [place] [id number] [phone] Paroxysmal Afib (post ablation follow up); Atrial Flutter 09/02/2018 Office Visit [facility] [address] [place] [address] Social History Date Tobacco Use Types Packs/Day Years Used Never Smoker Smokeless Tobacco: Never Used Drinks/Week oz/Week Comments Alcohol Use No Sex Assigned at Date Recorded Not on file Industry Job Start Date Occupation Not on file Not on file Not on file Travel End Travel History Travel Start No recent travel history available. documented as of this encounter Last Filed Vital Signs Reading Time Taken Comments Vital Sign 180/100 09/02/2018 2:04 PM AIRCRAFT SYSTEMS REPAIRER Blood Pressure 75 09/02/2018 2:04 PM AIRCRAFT SYSTEMS REPAIRER Pulse - - Temperature - - Respiratory Rate - - Oxygen Saturation - - Inhaled Oxygen Concentration 73.2 kg (161 lb 4.8 oz) 09/02/2018 2:04 PM AIRCRAFT SYSTEMS REPAIRER Weight 154.9 cm (5' 1") 09/02/2018 2:04 PM AIRCRAFT SYSTEMS REPAIRER Height 30.48 09/02/2018 2:04 PM AIRCRAFT SYSTEMS REPAIRER Body Mass Index documented in this encounter Patient Instructions * Patient Instructions* Corinne Ibrahim RN - 09/02/2018 2:00 PM AIRCRAFT SYSTEMS REPAIRER --Check your BP (Blood Pressure) daily and you may vary the time of day you chec k it. Monitor your blood pressure regularly Consider obtaining an automatic home blood pressure cuff if you don't already watkins ve one. Try to follow a low salt diet. If you smoke, make an honest effort to quit. Exercise helps with your blood pressure. Try to get at least 30 minutes of mode rate intensity exercise at least 4 days a week. Your desired BP is with the top # less than 140 and bottom # less than 90 Call our office or your PCP if your blood pressure remains at or above the maris ed measurement consistently. If you have questions about your blood pressure readings, please contact the off ice. Follow up with Dr Zapien in April. The schedule should be open early January. Call [phone] RAFT SYSTEMS REPAIRER documented in this encounter Plan of Treatment Order Schedule Name Type Priority Associated Diagnoses Ordered: 09/02/2018 ECG 12-LEAD ECG Routine PAF (paroxysmal atrial fibrillation) ([facility]) Expected: 04/08/2019, Expires: 09/02/2019 DEVICE EVALUATION - ILR Heart Rhythm Routine PAF (paroxysmal atrial Management fibrillation) ([facility]) Expected: 11/30/2018, Expires: 09/02/2019 DEVICE EVALUATION - Heart Rhythm Routine PAF (paroxysmal atrial REMOTE ILR Management fibrillation) ([facility]) Expected: 03/02/2019, Expires: 09/02/2019 DEVICE EVALUATION - Heart Rhythm Routine PAF (paroxysmal atrial REMOTE ILR Management fibrillation) ([facility]) documented as of this encounter Procedures Comments Procedure Name Priority Date/Time Associated Diagnosis ECG/QRS Routine 09/02/2018 2:19 PM AIRCRAFT SYSTEMS REPAIRER ECG-SCAN 09/02/2018 12:00 AM AIRCRAFT SYSTEMS REPAIRER ECG-SCAN 09/02/2018 12:00 AM AIRCRAFT SYSTEMS REPAIRER documented in this encounter Results * ECG/QRS (09/02/2018 2:19 PM AIRCRAFT SYSTEMS REPAIRER) QRS DURATION 92 OTHER OUTSIDE LAB Performing Organization Address City/State/Zipcode Phone Number OTHER OUTSIDE LAB * ECG-SCAN (09/02/2018 12:00 AM AIRCRAFT SYSTEMS REPAIRER) Narrative Performed At Ordered by an unspecified provider. * ECG-SCAN (09/02/2018 12:00 AM AIRCRAFT SYSTEMS REPAIRER) Narrative Performed At Ordered by an unspecified provider. documented in this encounter Visit Diagnoses Diagnosis PAF (paroxysmal atrial fibrillation) ([facility]) - Primary Atrial fibrillation documented in this encounter
--- OUTSIDE RECORDS SUMMARY | 2018-12-28 03:55 | XMS REPORT | Encounter Summary ---
Author Author [facility] Organization [facility] Address Unknown Phone Unavailable Care Team Providers Care Utility System Repairer Name Role Phone Clarice Elaine MD PCP Encounter Details Care Team Description Date Type Department Concepcion Whitehead MA Cardiac device in situ (Primary Dx) 08/27/2018 Orders Only [facility] [address] [place] [address] Social History Date Tobacco Use Types Packs/Day Years Used Never Smoker Smokeless Tobacco: Never Used Drinks/Week oz/Week Comments Alcohol Use No Sex Assigned at Date Recorded Not on file Industry Job Start Date Occupation Not on file Not on file Not on file Travel End Travel History Travel Start No recent travel history available. 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 Aguilar Events since last transmission: Multiple AF events since last interrogation in May. Longest event 10 minutes- all available EGM's show sinus with frequent PAC's. Ocassional herbert/pause events. Reviewed pause events triggered by device undersensing. Herbert events show brief bigeminal PVC's Programming changes made: none LINQ system education reviewed with patient. Report given to Dr. Zapien, will continue to monitor. Performing Organization Address City/State/Zipcode Phone Number OTHER OUTSIDE LAB documented in this encounter Visit Diagnoses Diagnosis Cardiac device in situ - Primary Unspecified cardiac device in situ documented in this encounter
--- OUTSIDE RECORDS SUMMARY | 2018-12-28 03:55 | XMS REPORT | Clinical Summary ---
Author Author [facility] Organization [facility] Address Unknown Phone Unavailable Care Team Providers Care White Spooler Name Role Phone Clarice Elaine MD PCP Source Comments Some departments are not documenting in the electronic medical record. If you d o not see the information that you expected, contact Release of Information in [facility] Information Management department at [phone] for further assistan ce in locating additional records.[facility] Allergies Comments Active Allergy Reactions Severity Noted Date Azithromycin UNKNOWN Low 11/26/2017 Ticagrelor UNKNOWN Low 11/26/2017 Cephalexin UNKNOWN Low 11/26/2017 Bleeding Heparin SEE COMMENTS Low 04/12/2018 Levofloxacin UNKNOWN Low 11/26/2017 Neck spasms Metoprolol SEE COMMENTS Low 10/18/2016 Metronidazole UNKNOWN Low 11/26/2017 Meloxicam UNKNOWN Low 11/26/2017 Morphine HALLUCINATION High 11/26/2017 S Norfloxacin UNKNOWN Low 11/26/2017 Stomach bleed Prednisone SEE COMMENTS Low 11/26/2017 Theophylline UNKNOWN Low 11/26/2017 Trovan UNKNOWN Low 11/26/2017 Bleeding Warfarin SEE COMMENTS Low 04/12/2018 Medications End Date Status Medication Sig Dispensed Refills Start Date Active fluticasone-vilanterol(+) Inhale 1 puff 0 (BREO ELLIPTA) 100-25 mcg by mouth into inhalation disk the lungs daily. Active albuterol (PROAIR HFA) 90 Inhale 2 0 mcg/actuation inhaler puffs by mouth into the lungs every 6 hours as needed for Wheezing or Shortness of Breath. Shake well before use. Active budesonide/formoterol Inhale 2 0 (SYMBICORT HFA) 160/4.5 puffs by mcg inhalation mouth into the lungs twice daily. Active rivaroxaban (XARELTO) 20 Take 20 mg by 0 mg tablet mouth daily with dinner. Take with food. Active sucralfate (CARAFATE) 1 Take 1 g by 0 gram tablet mouth four times daily as needed. Take on an empty stomach. Active albuterol 0.083% Inhale 1 vial 0 (PROVENTIL; VENTOLIN) 2.5 solution by mg /3 mL (0.083 %) nebulizer as nebulizer solution directed every 4 hours as needed for Wheezing or Shortness of Breath. Active glipiZIDE (GLUCOTROL) 5 Take 2.5 mg 0 mg tablet by mouth twice daily with meals. Active hyoscyamine sulfate Take 125 mcg 0 (LEVSIN) 0.125 mg tablet by mouth every 4 hours as needed for Cramps. Active vitamins, multiple tablet Take 1 tablet 0 by mouth daily. Active Vit Place under 0 [id number] tongue daily. (B COMPLEX) 1.7-20-2-1.2 mg/mL liqd Active levothyroxine (SYNTHROID) Take 75 mcg 0 75 mcg tablet by mouth daily. Active Problems Problem Noted Date Atrial flutter 04/12/2018 PAF (paroxysmal atrial fibrillation) 12/07/2017 Overview: CHA2Ds@-VASc score=4 11/10/15 Dr Alves [...] (cath results below) Coronary artery disease involving [place] coronary artery of [place] heart 12/07/2017 Overview: hx of PSI/stent 3.5 x 15 mm resolute durg-eluting stent to the LAD expanded to 3.86 mm with excellent results. 10/20 cath revealed patent stent to LAD otherwise moderate disease in distal LAD. very small artery. 11/28/17 Stress test - PAF with RVR to hospital, treated with lopressor, dig then verapamil IV. home with po cardizem 11/29/17 cardiac cath: patent stent in proximal LAD with small vessel disease distally, mild coronary artery disease non obstructive, normal left ventricular end-diastolic pressure Essential hypertension 12/07/2017 Hyperlipidemia 12/07/2017 COPD (chronic obstructive pulmonary disease) 12/07/2017 Diabetes mellitus type 2, noninsulin dependent 12/07/2017 Hypothyroidism 12/07/2017 Bilateral carotid artery stenosis 12/07/2017 GI bleed 12/07/2017 Overview: history of intolerance to aggressive oral anticoagulation including aspirin and plavix and coumadin. currently maintained on xarelto Family History Medical History Relation Name Comments [...] Sister (Age 80) Sister Alive Social History Date Tobacco Use Types Packs/Day Years Used Never Smoker Smokeless Tobacco: Never Used Drinks/Week oz/Week Comments Alcohol Use No Sex Assigned at Date Recorded Not on file Industry Job Start Date Occupation Not on file Not on file Not on file Travel End Travel History Travel Start No recent travel history available. Last Filed Vital Signs Reading Time Taken Comments Vital Sign 180/100 09/02/2018 2:04 PM SAMPLE CHECKER Blood Pressure 75 09/02/2018 2:04 PM SAMPLE CHECKER Pulse 36.5 C (97.7 F) 04/26/2018 3:00 PM CDT Temperature - - Respiratory Rate 96% 04/26/2018 4:05 PM CDT Oxygen Saturation - - Inhaled Oxygen Concentration 73.2 kg (161 lb 4.8 oz) 09/02/2018 2:04 PM SAMPLE CHECKER Weight 154.9 cm (5' 1") 09/02/2018 2:04 PM SAMPLE CHECKER Height 30.48 09/02/2018 2:04 PM SAMPLE CHECKER Body Mass Index Plan of Treatment Health Maintenance Due Date Last Done Comments PHYSICAL (COMPREHENSIVE) 01/31/1947 EXAM DILATED EYE EXAM 1959 DTAP/TDAP VACCINES (1 - 1959 Tdap) FOOT EXAM 1959 HBA1C 1959 MICROALBUMIN 1959 SHINGLES RECOMBINANT 1991 VACCINE (1 of 2) OSTEOPOROSIS 2006 SCREENING/MONITORING PNEUMONIA (PCV13/PPSV23) 2006 VACCINES (1 of 2 - PCV13) INFLUENZA VACCINE 04/08/2019 04/30/2017, 04/13/2005, 04/09/2003, Additional history exists Implants Device Identifier Shelf Expiration Date Model / Serial / Lot Implanted Type Area Manufactur er Loop Recorder Loop Recorder Linq Other Results Not on filefrom Last 3 Months Insurance Type Payer Benefit Subscriber ID Effective Phone Address Plan / Dates Group Medicare MEDICARE RAILROAD MEDICARE xxxxxxxxxxx 2006-P RAILROAD resent PART A AND B Indemnity [facility] xxxxxxxxx 2017-P INDEMNITY resent GENERIC Advance Directives 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 needed
--- OUTSIDE RECORDS SUMMARY | 2018-12-28 03:55 | XMS REPORT | Encounter Summary ---
Author Author [facility] Organization [facility] Address Unknown Phone Unavailable Care Team Providers Care Event Executive Name Role Phone Clarice Elaine MD PCP Encounter Details Care Team Description Date Type Department Doug Zapien MD [address] [facility] [place] [address] [phone] 09/02/2018 [facility] [address] [place] [address] Social History Date Tobacco Use Types Packs/Day Years Used Never Smoker Smokeless Tobacco: Never Used Drinks/Week oz/Week Comments Alcohol Use No Sex Assigned at Date Recorded Not on file Industry Job Start Date Occupation Not on file Not on file Not on file Travel End Travel History Travel Start No recent travel history available. documented as of this encounter Medications at Time of Discharge Start Date End Date Medication Sig Dispensed Refills albuterol (PROAIR HFA) 90 Inhale 2 0 mcg/actuation inhaler puffs by mouth into the lungs every 6 hours as needed for Wheezing or Shortness of Breath. Shake well before use. albuterol 0.083% Inhale 1 vial 0 (PROVENTIL; VENTOLIN) 2.5 solution by mg /3 mL (0.083 %) nebulizer as nebulizer solution directed every 4 hours as needed for Wheezing or Shortness of Breath. budesonide/formoterol Inhale 2 0 (SYMBICORT HFA) 160/4.5 puffs by mcg inhalation mouth into the lungs twice daily. fluticasone-vilanterol(+) Inhale 1 puff 0 (BREO ELLIPTA) 100-25 mcg by mouth into inhalation disk the lungs daily. glipiZIDE (GLUCOTROL) 5 Take 2.5 mg 0 mg tablet by mouth twice daily with meals. hyoscyamine sulfate Take 125 mcg 0 (LEVSIN) 0.125 mg tablet by mouth every 4 hours as needed for Cramps. levothyroxine (SYNTHROID) Take 75 mcg 0 75 mcg tablet by mouth daily. rivaroxaban (XARELTO) 20 Take 20 mg by 0 mg tablet mouth daily with dinner. Take with food. sucralfate (CARAFATE) 1 Take 1 g by 0 gram tablet mouth four times daily as needed. Take on an empty stomach. Vit Place under 0 [id number] tongue daily. (B COMPLEX) 1.7-20-2-1.2 mg/mL liqd vitamins, multiple tablet Take 1 tablet 0 by mouth daily. documented as of this encounter Plan of Treatment Not on filedocumented as of this encounter Procedures Comments Procedure Name Priority Date/Time Associated Diagnosis DEVICE EVALUATION - ILR Routine 09/02/2018 Cardiac device in situ 2:53 PM ARTIFICIAL LIMB FITTER documented in this encounter Results * DEVICE EVALUATION - ILR (09/02/2018 2:53 PM ARTIFICIAL LIMB FITTER) ILR Symptom 4 7.5 mins each OTHER [...] in situ Unspecified cardiac device in situ documented in this encounter
--- NOTE | 2018-12-28 03:58 | NUR ---
PT HERE WITH " ". PT ALERT GCS 15. PT BEEN C/O COUGH CONGESTION SINUS H/A X 3 DAYS ASSOCIATED WITH DYSPNEA. NO ACUTE SIGHNS OF DYSPNEA NOTED CURRENTLY THOUGH RESP SHALLOW NONLABORED. DR IN ROOM SEING PT . LUNGS SOUNDS DEFERRED TO DR EXAM. PT RELATES H/O ASTHMA AND BRONCHITIS. PT SOUNDS NASALLY CONGESTED AND HAS A HORSE VOICE. PT POINTS TO THROOAT AND UPPER CHEST FOR PAIN RATING 7-8. PT HAS CONGESTED COUGH IN ER. PT DENIES ABD PAIN AND N/V/D. PT ON BLOOD THINNER XALTRO FOR H/O A FIB. AUSC HR IS REG.
--- OUTSIDE RECORDS SUMMARY | 2018-12-28 04:02 | XMS REPORT | CCD ---
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 ICD-10: F06.4 Active 10/18/2015 Unknown Mild intermittent asthma with (acute) exacerbation ICD-9: 493.12 ICD-10: J45.21 Active 10/24/2015 Unknown Type 2 diabetes mellitus with hyperglycemia ICD-9: 250.02 ICD-10: E11.65 Active 11/10/2013 Unknown Localized edema ICD-9: 782.3 ICD-10: R60.0 Active 05/29/2016 Unknown Pain [...] ICD-10: R53.82 Active 07/15/2012 Unknown Dyspnea, unspecified ICD- 9: 786.09 ICD-10: R06.00 Active 10/18/2015 Unknown Other chest pain ICD-9: 786.59 ICD-10: R07.89 Active 10/18/2015 Unknown ACUTE BRONCHITIS ICD-9: 466.0 Active 08/17/2014 Unknown Acute asthma exacerbation ICD-9: 493.92 Active 04/13/2014 Unknown DIABETES TYPE II ICD-9: 250.00 Active 12/11/2013 Unknown HYPOTHYROIDISM ICD-9: 244.9 Active 12/11/2013 Unknown DM W/O COMPLICATION TYPE II, UNCONTROLLED ICD-9: 250.02 Active 11/10/2013 Unknown ESSENTIAL HYPERTENSION ICD-9: 401.9 Active 11/10/2013 Unknown VACCIN FOR INFLUENZA ICD- 9: V04.81 Active 05/12/2013 Unknown Lump of breast, right ICD- 9: 611.72 Active 09/11/2012 Unknown Lump on neck ICD-9: 784.2 Active 09/11/2012 Unknown Atrial fibrillation ICD- 9: 427.31 Active 07/15/2012 Unknown Encounter for monitoring digoxin therapy ICD-9: V58.83 Active 07/15/2012 Unknown Fatigue ICD-9: 780.79 Active 07/15/2012 Unknown Hypothryroidism Unknown Active 03/26/2012 Unknown Immunization, pneumococcus and influenza ICD-9: V06.6 Active 03/26/2012 Unknown Hyperlipidemia Unknown Active 01/08/2012 Unknown HYPERLIPIDEMIA ICD-9: 272.4 Active 01/08/2012 Unknown Hypertension Unknown Active 11/27/2011 Unknown Diabetes Unknown Active 11/06/2011 Unknown Chronic obstructive pulmonary disease Unknown Inactive 11/06/2011 Unknown Diverticular disease Unknown Inactive 11/06/2011 Unknown Osteoporosis Unknown Inactive 11/06/2011 Unknown Abdominal pain ICD-9: 789.00 Inactive 10/04/2011 Unknown ACUTE SINUSITIS ICD-9: 461.9 Inactive 11/06/2011 Unknown ANEMIA ICD-9: 285.9 Inactive 10/25/2011 Unknown Gastritis ICD-9: 535.50 Inactive 10/25/2011 Unknown Muscle spasm ICD-9: 728.85 Inactive 07/31/2011 Unknown ANEMIA NEC ICD-9: 285.8 Active 10/16/2011 Unknown Anemia associated with acute blood loss ICD-9: 285.1 Active 10/11/2011 Unknown Gastritis, acute with hemorrhage ICD-9: 535.01 Active 10/11/2011 Unknown ENCNTR LONG-RX USE NEC ICD-9: V58.69 Active 10/04/2011 Unknown Hematochezia ICD-9: 578.1 Active 10/04/2011 Unknown Coronary artery disease ICD-9: 414.00 Active 09/25/2011 Unknown Arthralgia ICD-9: 719.40 Active 07/31/2011 Unknown MYALGIA AND MYOSITIS ICD- 9: 729.1 Active 07/31/2011 Unknown Cervicalgia ICD-9: 723.1 Active 05/22/2011 Unknown Problems Condition Codes Effective Dates Condition Status Essential (primary) hypertension ICD-9: 401.9 ICD-10: I10 11/10/2013 Active Gastro-esophageal reflux disease without esophagitis ICD-9: 530.81 ICD-10: K21.9 10/12/2016 Active 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 condition ICD-9: 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.84 ICD-10: F06.4 10/18/2015 Active Mild intermittent asthma with (acute) exacerbation ICD-9: 493.12 ICD-10: J45.21 10/24/2015 Active Type 2 diabetes mellitus with hyperglycemia ICD-9: 250.02 ICD-10: E11.65 11/10/2013 Active Localized edema ICD-9: 782.3 ICD-10: R60.0 05/29/2016 Active Pain in [...] 780.79 ICD-10: R53.82 07/15/2012 Active Dyspnea, unspecified ICD- 9: 786.09 ICD-10: R06.00 10/18/2015 Active Other chest pain ICD-9: 786.59 ICD-10: R07.89 10/18/2015 Active ACUTE BRONCHITIS ICD-9: 466.0 08/17/2014 Active Acute asthma exacerbation ICD-9: 493.92 04/13/2014 Active DIABETES TYPE II ICD-9: 250.00 12/11/2013 Active HYPOTHYROIDISM ICD-9: 244.9 12/11/2013 Active DM W/O COMPLICATION TYPE II, UNCONTROLLED ICD-9: 250.02 11/10/2013 Active ESSENTIAL HYPERTENSION ICD-9: 401.9 11/10/2013 Active VACCIN FOR INFLUENZA ICD- 9: V04.81 05/12/2013 Active Lump of breast, right ICD- 9: 611.72 09/11/2012 Active Lump on neck ICD-9: 784.2 09/11/2012 Active Atrial fibrillation ICD- 9: 427.31 07/15/2012 Active Encounter for monitoring digoxin [...] pain ICD-9: 789.00 10/04/2011 Inactive ACUTE SINUSITIS ICD-9: 461.9 11/06/2011 Inactive ANEMIA ICD-9: 285.9 10/25/2011 [...] ICD-9: 719.40 07/31/2011 Active MYALGIA AND MYOSITIS ICD- 9: 729.1 07/31/2011 Active Cervicalgia ICD-9: 723.1 05/22/2011 Active Medications Medication Codes Instructions Start Date Stop Date Status Fill Instructions Synthroid 88 mcg tablet RxNorm: 149448 Tablet(s) PO TAKE ONE TABLET BY MOUTH DAILY 01/17/2017 04/16/2017 Active Needs thyroid labs done Plavix 75 mg tablet RxNorm: 015950 TAKE ONE TABLET BY MOUTH ONCE DAILY 12/25/2016 06/22/2017 Active Janumet XR 100 mg-1,000 mg tablet,extended release RxNorm: 8449736 1 Tablet(s) PO daily 09/04/2016 03/02/2017 Active Kenalog 40 mg/mL suspension for injection RxNorm: 9467827 1.5 Milliliter(s) Inj 09/04/2016 09/04/2016 Inactive glipizide 5 mg tablet RxNorm: 908087 TAKE ONE-HALF TABLET BY MOUTH TWICE DAILY 08/24/2016 02/19/2017 Active Janumet XR 50 mg-1,000 mg tablet,extended release RxNorm: 2510635 TAKE ONE TABLET BY MOUTH ONCE DAILY 05/29/2016 09/03/2016 Inactive metoprolol tartrate 25 mg tablet RxNorm: 324624 1/4 Tablet(s) PO BID 05/01/2016 05/29/2016 Inactive glipizide 5 mg tablet RxNorm: 427521 TAKE ONE-HALF TABLET BY MOUTH TWICE DAILY 02/21/2016 08/18/2016 Inactive ProAir HFA 90 mcg/actuation aerosol inhaler RxNorm: 784137 2 Puff(s) INH PRN as needed ASTHMA 02/03/2016 03/03/2016 Inactive albuterol sulfate 2.5 mg/3 mL (0.083 %) solution for nebulization RxNorm: 758005 1 Milliliter(s) INH QID as needed ASTHMA 02/03/2016 06/01/2016 Inactive Accu-Chek Active Test strips RxNorm: 1 test Miscellaneous daily 02/03/2016 08/25/2019 Active DX250.00 Janumet XR 50 mg-1,000 mg tablet,extended release RxNorm: 7199141 1 Tablet(s) PO daily 02/03/2016 05/28/2016 Inactive Augmentin 875 mg-125 mg tablet RxNorm: 621798 1 Tablet(s) PO BID 02/03/2016 02/12/2016 Inactive sucralfate 1 gram tablet RxNorm: 795977 1 Tablet(s) PO QID - take 30 minutes before meals and before supper 12/21/2015 04/18/2016 Inactive digoxin 250 mcg tablet RxNorm: 631214 1 Tablet(s) PO daily 12/21/2015 No Stop Date Active metformin ER 500 mg tablet,extended release 24 hr RxNorm: 267357 1 Tablet(s) PO BID 12/21/2015 02/02/2016 Inactive Synthroid 88 mcg tablet RxNorm: 939682 Tablet(s) PO TAKE ONE TABLET BY MOUTH DAILY 12/20/2015 01/16/2017 Inactive Plavix 75 mg tablet RxNorm: 406357 1 Tablet(s) PO daily 12/20/2015 12/13/2016 Inactive Kenalog 40 mg/mL suspension for injection RxNorm: 7629637 1 Milliliter(s) Inj 11/11/2015 11/11/2015 Inactive Kenalog 40 mg/mL suspension for injection RxNorm: 5535346 1 Milliliter(s) Inj 10/25/2015 10/25/2015 Inactive metformin 500 mg tablet RxNorm: 690312 2 Tablet(s) PO BID 07/16/2015 12/20/2015 Inactive metformin 500 mg tablet RxNorm: 883900 TAKE TWO TABLETS BY MOUTH TWICE DAILY 07/16/2015 12/20/2015 Inactive albuterol sulfate 2.5 mg/3 mL (0.083 %) solution for nebulization RxNorm: 402177 1 Milliliter(s) INH QID as needed ASTHMA 07/14/2015 11/10/2015 Inactive glipizide 5 mg tablet RxNorm: 058641 1/2 Tablet(s) PO BID 02/03/2015 01/28/2016 Inactive Symbicort 160 mcg-4.5 mcg/actuation HFA aerosol inhaler RxNorm: 5067252 1 INH 01/06/2015 No Stop Date Active metformin 500 mg tablet RxNorm: 508530 2 Tablet(s) PO BID 12/22/2014 06/19/2015 Inactive Synthroid 88 mcg tablet RxNorm: 706257 1 Tablet(s) PO daily TAKE ONE TABLET BY MOUTH DAILY 12/02/2014 11/26/2015 Inactive Plavix 75 mg tablet RxNorm: 813588 1 Tablet(s) PO daily 12/02/2014 11/26/2015 Inactive note directions of one per day Accu-Chek Active Test strips RxNorm: 1 test Miscellaneous daily 08/17/2014 02/02/2016 Inactive DX250.00 Kenalog 40 mg/mL suspension for injection RxNorm: 7660390 Milliliter(s) Inj 08/17/2014 08/17/2014 Inactive doxycycline hyclate 100 mg tablet RxNorm: 331192 1 Tablet(s) PO BID 08/17/2014 08/26/2014 Inactive albuterol sulfate 2.5 mg/3 mL (0.083 %) solution for nebulization RxNorm: 878663 1 Milliliter(s) INH QID as needed ASTHMA 08/17/2014 08/16/2014 Inactive albuterol sulfate 2.5 mg/3 mL (0.083 %) solution for nebulization RxNorm: 869988 1 Milliliter(s) INH QID as needed ASTHMA 08/17/2014 12/14/2014 Inactive doxycycline hyclate 100 mg tablet RxNorm: 018438 1 Tablet(s) PO BID 08/17/2014 08/16/2014 Inactive Accu-Chek Multiclix Lancet RxNorm: 1 Miscellaneous daily TEST BLOOD SUGAR EVERY DAY 08/17/2014 09/10/2015 Inactive DX 250.00 metformin 500 mg tablet RxNorm: 558569 TAKE TWO TABLETS BY MOUTH TWICE DAILY 06/23/2014 09/20/2014 Inactive metformin 500 mg tablet RxNorm: 622897 2 Tablet(s) PO BID 06/22/2014 12/18/2014 Inactive Bactrim DS 800 mg-160 mg tablet RxNorm: 496767 1 Tablet(s) PO BID 05/11/2014 05/17/2014 Inactive Bactrim DS 800 mg-160 mg tablet RxNorm: 484817 1 Tablet(s) PO BID 05/11/2014 05/10/2014 Inactive Kenalog 40 mg/mL suspension for injection RxNorm: 5639073 Milliliter(s) Inj 04/13/2014 04/13/2014 Inactive Accu-Chek Active Test strips RxNorm: 1 TEST MISCELLANEOUS BID 04/06/2014 10/22/2014 Inactive glipizide 5 mg tablet RxNorm: 685404 1/2 Tablet(s) PO BID 03/03/2014 02/02/2015 Inactive Synthroid 88 mcg tablet RxNorm: 119516 1 Tablet(s) PO daily TAKE ONE TABLET BY MOUTH DAILY 12/11/2013 12/01/2014 Inactive Plavix 75 mg tablet RxNorm: 589485 1 Tablet(s) PO daily 12/11/2013 12/01/2014 Inactive note directions of one per day glipizide 5 mg tablet RxNorm: 010539 1/2 Tablet(s) PO BID 11/10/2013 03/02/2014 Inactive Lipitor 10 mg tablet RxNorm: 500347 1 Tablet(s) PO daily 11/10/2013 12/21/2014 Inactive Accu-Chek Active Test strips RxNorm: strip miscellaneous TEST BLOOD SUGAR EVERY DAY 11/03/2013 No Stop Date Active Accu-Chek Multiclix Lancet RxNorm: misc miscellaneous TEST BLOOD SUGAR EVERY DAY 08/07/2013 08/16/2014 Inactive Accu-Chek Active Test strips RxNorm: strip miscellaneous TEST BLOOD SUGAR EVERY DAY 08/05/2013 No Stop Date Active digoxin 125 mcg tablet RxNorm: 630471 1 Tablet(s) PO daily 08/05/2013 10/28/2014 Inactive metformin 500 mg tablet RxNorm: 331480 2 Tablet(s) PO BID 06/12/2013 06/21/2014 Inactive metformin 500 mg tablet RxNorm: 989742 2 Tablet(s) PO BID 05/12/2013 06/11/2013 Inactive metformin 500 mg tablet RxNorm: 845820 Tablet(s) PO TAKE ONE & ONE-HALF TABLETS BY MOUTH TWICE DAILY 04/10/2013 05/11/2013 Inactive Synthroid 88 mcg tablet RxNorm: 135261 Tablet(s) PO TAKE ONE TABLET BY MOUTH DAILY 01/07/2013 12/19/2015 Inactive Synthroid 88 mcg tablet RxNorm: 176258 1 Tablet(s) PO daily TAKE ONE TABLET BY MOUTH DAILY 01/06/2013 12/10/2013 Inactive Plavix 75 mg tablet RxNorm: 446844 1 Tablet(s) PO daily 12/09/2012 12/03/2013 Inactive note directions of one per day Lipitor 80 mg tablet RxNorm: 072149 Tablet(s) PO TAKE 1 TABLET BY MOUTH EVERY DAY 10/28/2012 11/09/2013 Inactive Synthroid 88 mcg tablet RxNorm: 198793 Tablet(s) PO TAKE ONE TABLET BY MOUTH DAILY 10/07/2012 10/06/2012 Inactive Synthroid 88 mcg tablet RxNorm: 923699 1 Tablet(s) PO daily TAKE ONE TABLET BY MOUTH DAILY 10/07/2012 01/05/2013 Inactive Kenalog 40 mg/mL Susp for Injection RxNorm: 0243569 1 Milliliter(s) IM 10/07/2012 10/07/2012 Inactive digoxin 250 mcg tablet RxNorm: 9476151 1/2 Tablet(s) PO daily 07/15/2012 08/04/2013 Inactive Synthroid 88 mcg tablet RxNorm: 752892 Tablet(s) PO TAKE ONE TABLET BY MOUTH DAILY 06/28/2012 10/06/2012 Inactive Accu-Chek Multiclix Lancet RxNorm: Misc Miscellaneous 06/05/2012 No Stop Date Active TEST BLOOD SUGAR EVERY DAY Accu-Chek Active Test Strips RxNorm: Strip Miscellaneous 06/05/2012 No Stop Date Active TEST BLOOD SUGAR EVERY DAY Lipitor 80 mg tablet RxNorm: 204653 1/2 Tablet(s) PO daily 03/28/2012 No Stop Date Active TAKE 1 TABLET BY MOUTH EVERY DAY metformin 500 mg tablet RxNorm: 889120 1.5 Tablet(s) PO BID 03/28/2012 04/09/2013 Inactive Lipitor 80 mg tablet RxNorm: 552271 1/2 Tablet(s) PO 03/28/2012 08/16/2014 Inactive TAKE 1 TABLET BY MOUTH EVERY DAY Lipitor 80 mg tablet RxNorm: 060636 1/2 Tablet(s) PO daily 03/28/2012 No Stop Date Active TAKE 1 TABLET BY MOUTH EVERY DAY Influenza Virus Vaccine 0.5 mL RxNorm: IM 03/26/2012 03/26/2012 Inactive Pneumovax 23 25 mcg/0.5 mL Injection RxNorm: 043152 Milliliter(s) Inj 03/26/2012 03/26/2012 Inactive metformin 500 mg tablet RxNorm: 487810 1 Tablet(s) PO BID 11/27/2011 03/27/2012 Inactive Plavix 75 mg tablet RxNorm: 886379 1 Tablet(s) PO daily 11/01/2011 11/24/2012 Inactive note directions of one per day Lipitor 80 mg tablet RxNorm: 408939 Tablet(s) PO 10/18/2011 03/27/2012 Inactive TAKE 1 TABLET BY MOUTH EVERY DAY Protonix 40 mg Tab RxNorm: 070380 1 Tablet(s) PO BID 10/11/2011 12/20/2015 Inactive Accu-Chek Active Test Strips RxNorm: 1 test Miscellaneous daily 10/04/2011 08/16/2014 Inactive Carafate 1 gram Tab RxNorm: 805552 1 Tablet(s) PO QID 10/02/2011 10/31/2011 Inactive Carafate 1 gram Tab RxNorm: 374904 1 Tablet(s) PO TID 09/29/2011 09/28/2011 Inactive Carafate 1 gram Tab RxNorm: 641681 1 Tablet(s) PO TID 09/29/2011 10/01/2011 Inactive Kenalog 40 mg/mL Susp for Injection RxNorm: 8282872 2 Milliliter(s) Inj 07/31/2011 07/31/2011 Inactive Synthroid 88 mcg tablet RxNorm: 773966 1 Tablet(s) PO daily 06/06/2011 10/11/2011 Inactive Accu-Chek Active Test Strips RxNorm: 1 test Miscellaneous BID 06/05/2011 10/03/2011 Inactive Accu-Chek Multiclix Lancet RxNorm: 1 test Miscellaneous BID 06/02/2011 09/24/2011 Inactive Accu-Chek Active Test strips RxNorm: 1 test Miscellaneous BID 06/02/2011 06/04/2011 Inactive Bactrim DS 800 mg-160 mg Tab RxNorm: 484510 1 Tablet(s) PO BID 05/22/2011 05/31/2011 Inactive metformin 500 mg Tab RxNorm: 666758 1 Tablet(s) PO TID 05/05/2011 10/31/2011 Inactive Influenza Virus Vaccine 0.5 mL RxNorm: IM 05/02/2011 05/02/2011 Inactive albuterol sulfate HFA 90 mcg/Actuation Aerosol Inhaler RxNorm: 949518 1 Puff(s) INH PRN prn shortness of breath No Start Date Active pantoprazole 40 mg tablet,delayed release RxNorm: 914174 1 Tablet(s) PO daily No Start Date Active Singulair 10 mg tablet RxNorm: 333760 1 Tablet(s) PO daily No Start Date Active multivitamin chewable tablet RxNorm: 1 Tablet(s) PO daily No Start Date Active Fish Oil 300 mg-1,000 mg capsule RxNorm: 735434 1 Capsule(s) PO occasional No Start Date Active hyoscyamine 0.125 mg sublingual tablet RxNorm: 2232855 1 Tablet(s) SL Q6 No Start Date Active simvastatin 20 mg tablet RxNorm: 200036 1/2 Tablet(s) PO daily No Start Date 12/20/2015 Inactive Zantac 75 75 mg Tab RxNorm: 222163 2 Tablet(s) PO daily No Start Date 12/20/2015 Inactive Protonix 40 mg Tab RxNorm: 532839 1 Tablet(s) PO daily No Start Date 10/10/2011 Inactive Fish Oil 1,000 mg capsule RxNorm: 3 Capsule(s) PO daily No Start Date 12/20/2015 Inactive digoxin 125 mcg tablet RxNorm: 4948053 1 Tablet(s) PO daily No Start Date 08/04/2013 Inactive Brilinta 90 mg Tab RxNorm: 7081298 1 Tablet(s) PO daily No Start Date 10/10/2011 Inactive Fish Oil 1,000 mg Cap RxNorm: 3 Capsule(s) PO daily No Start Date 12/21/2015 Inactive Flintstones Complete 18 mg iron chewable tablet RxNorm: 2 Tablet(s) PO daily No Start Date 12/20/2015 Inactive Niaspan Extended-Release 500 mg 24 hr Tab RxNorm: 4195870 1 Tablet(s) PO daily No Start Date 09/24/2011 Inactive samples aspirin 81 mg Cap, Delayed Release RxNorm: 418964 Capsule(s) PO daily No Start Date 05/01/2012 Inactive metformin 500 mg Tab RxNorm: 609797 1 Tablet(s) PO BID No Start Date 05/04/2011 Inactive Prilosec OTC 20 mg tablet,delayed release RxNorm: 246339 1 Tablet(s) PO daily No Start Date 10/31/2016 Inactive Zantac 150 mg Tab RxNorm: 469239 1 Tablet(s) PO BID No Start Date 10/10/2011 Inactive Synthroid 88 mcg Tab RxNorm: 488256 1 Tablet(s) PO daily No Start Date 06/05/2011 Inactive Plavix 75 mg Tab RxNorm: 409896 1 Tablet(s) PO daily No Start Date 10/31/2011 Inactive aspirin 81 mg Cap, Delayed Release RxNorm: 964053 1 Capsule(s) PO daily No Start Date 10/01/2011 Inactive Lipitor 80 mg Tab RxNorm: 186203 1 Tablet(s) PO daily No Start Date 10/17/2011 Inactive Symbicort 160 mcg-4.5 mcg/Actuation HFA Aerosol Inhaler RxNorm: 4053796 1 INH No Start Date 01/05/2015 Inactive Medication Administered Medication Codes Instructions Start Date Status Kenalog 40 mg/mL suspension for injection RxNorm: 7767696 1.5Milliliter 09/04/2016 No longer Active Kenalog 40 mg/mL suspension for injection RxNorm: 5865845 1Milliliter 11/11/2015 No longer Active Kenalog 40 mg/mL suspension for injection RxNorm: 2581318 1Milliliter 10/25/2015 No longer Active Kenalog 40 mg/mL suspension for injection RxNorm: 9353704 Milliliter 08/17/2014 No longer Active Kenalog 40 mg/mL suspension for injection RxNorm: 1557992 Milliliter 04/13/2014 No longer Active Kenalog 40 mg/mL Susp for Injection RxNorm: 9816938 1Milliliter 10/07/2012 No longer Active Influenza Virus Vaccine 0.5 mL RxNorm: 03/26/2012 No longer Active Pneumovax 23 25 mcg/0.5 mL Injection RxNorm: 759036 Milliliter 03/26/2012 No longer Active Kenalog 40 mg/mL Susp for Injection RxNorm: 6118695 2Milliliter 07/31/2011 No longer Active Influenza Virus Vaccine 0.5 mL RxNorm: 05/02/2011 No longer Active Immunizations Vaccine Codes Date Status Pneumococcal CVX: 133 05/11/2016 completed Influenza CVX: 141 05/12/2013 completed Influenza CVX: 141 03/26/2012 completed Pneumococcal (Adult) CVX: 33 03/26/2012 completed Pneumococcal (Adult) CVX: 33 03/26/2012 completed Influenza CVX: 141 05/02/2011 completed Influenza CVX: 141 05/05/2010 completed Assessments Condition Codes Effective Dates Essential (primary) hypertension ICD-10: I10 ICD-9: 401.9 11/01/2016 Gastro-esophageal reflux disease with esophagitis ICD-10: K21.0 ICD-9: 530.11 11/01/2016 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 ICD-9: 293.84 10/18/2016 Mild intermittent asthma with (acute) exacerbation ICD-10: J45.21 ICD-9: 493.12 10/18/2016 Gastro-esophageal reflux disease without esophagitis ICD-10: K21.9 ICD-9: 530.81 10/12/2016 Type 2 diabetes mellitus with hyperglycemia ICD-10: E11.65 ICD-9: 250.02 09/04/2016 Localized edema ICD-10: R60.0 ICD-9: 782.3 05/30/2016 [...] ICD-9: 786.09 10/19/2015 ESSENTIAL HYPERTENSION ICD-9: 401.9 12/22/2014 DIABETES TYPE II ICD-9: 250.00 12/22/2014 ACUTE BRONCHITIS ICD-9: 466.0 08/17/2014 Acute asthma exacerbation ICD-9: 493.92 08/17/2014 HYPOTHYROIDISM ICD-9: 244.9 12/11/2013 DM W/O COMPLICATION TYPE II, UNCONTROLLED ICD-9: 250.02 11/10/2013 HYPERLIPIDEMIA ICD-9: 272.4 11/04/2013 ATRIAL FIBRILLATION ICD-9: 427.31 11/04/2013 ANEMIA NEC ICD-9: 285.8 11/04/2013 ENCNTR LONG-RX USE NEC ICD-9: V58.69 11/04/2013 VACCIN FOR INFLUENZA ICD-9: V04.81 05/12/2013 Fatigue ICD-9: 780.79 10/07/2012 Lump of breast, right ICD-9: 611.72 09/11/2012 Lump on neck ICD-9: 784.2 09/11/2012 Encounter for monitoring digoxin therapy ICD-9: V58.83 07/15/2012 Immunization, pneumococcus and influenza ICD-9: V06.6 03/26/2012 Gastritis ICD-9: 535.50 10/25/2011 ANEMIA ICD-9: 285.9 10/25/2011 Anemia associated with acute blood loss ICD-9: 285.1 10/11/2011 Gastritis, acute with hemorrhage ICD-9: 535.01 10/11/2011 Abdominal pain ICD-9: 789.00 10/04/2011 Hematochezia ICD-9: 578.1 10/04/2011 Coronary artery disease ICD-9: 414.00 09/25/2011 Arthralgia ICD-9: 719.40 07/31/2011 Cervicalgia ICD-9: 723.1 07/31/2011 Muscle spasm ICD-9: 728.85 07/31/2011 MYALGIA AND MYOSITIS ICD-9: 729.1 07/31/2011 ACUTE SINUSITIS ICD-9: 461.9 05/22/2011 Reason For Visit Reason For Visit Effective Dates Notes Hospital Follow Up 11/01/2016 cough 10/18/2016 cough [...] Observation Code Item Item Code Result Date CBC 3399888 WBC 6.8 10e9/L 08/21/2016 CBC [id number] RBC 4.87 10e12/L 08/21/2016 CBC 5189004 HEMOGLOBIN 12.7 g/dL 08/21/2016 CBC 6037679 HEMATOCRIT 40.5 % 08/21/2016 CBC 0404891 MCV 83.2 fL 08/21/2016 CBC [id number] MCH 26.1 pg 08/21/2016 CBC 0375250 MCHC 31.4 g/dL 08/21/2016 CBC 6592273 PLATELET COUNT 334 10e9/L 08/21/2016 CBC 4757544 Mean Plt Volume 10.5 fL 08/21/2016 CBC 9771946 Neut Auto 56.4 % 08/21/2016 CBC 4205468 Lymph Auto 23.5 % 08/21/2016 CBC 3399594 [place] Auto 9.7 % 08/21/2016 CBC 3996790 Eos Auto 9.5 % 08/21/2016 CBC 6820982 RDW 16.6 % 08/21/2016 CBC 2794671 Baso Auto 0.9 % 08/21/2016 CBC 5357407 Neutrophil Abs 3.84 10e9/L 08/21/2016 CBC 3771506 Lymphocyte Abs 1.60 10e9/L 08/21/2016 CBC 9208129 Monocyte Abs 0.66 10e9/L 08/21/2016 CBC 3916169 Eosinophil Abs 0.65 10e9/L 08/21/2016 CBC 1769247 Basophil Abs 0.06 10e9/L 08/21/2016 CBC 9023731 RDW-SD 49.7 fL 08/21/2016 FREE T4 8880610 T4 Free 1.39 ng/dL 08/21/2016 LIPID GRP CHOLESTEROL 211 mg/dL 08/21/2016 LIPID GRP Triglyceride 105 mg/dL 08/21/2016 LIPID GRP HDL CHOLESTEROL 45 mg/dL 08/21/2016 LIPID GRP Chol/HDL Ratio 4.69 ratio 08/21/2016 LIPID GRP NON-HDL Chol 166 mg/dL 08/21/2016 LIPID GRP LDL Cholesterol 145 mg/dL 08/21/2016 A1C HPLC 6360828 Hgb A1c 31416-9 7.4 % 08/21/2016 GFR CALC 9996593 GFR Non Afr Amr >60 mL/min 08/21/2016 GFR CALC 9443552 GFR Afr Amr >60 mL/min 08/21/2016 CHEM 14 3221635 AST 16 U/L 08/21/2016 CHEM 14 4646324 ALT 14 U/L 08/21/2016 CHEM 14 5586673 BUN 14 mg/dL 08/21/2016 CHEM 14 6314238 ALBUMIN 4.1 g/dL 08/21/2016 CHEM 14 5447392 CHLORIDE 105 mmol/L 08/21/2016 CHEM 14 8922387 Bili Total 0.5 mg/dL 08/21/2016 CHEM 14 2646767 ALK PHOS 53 U/L 08/21/2016 CHEM 14 4759525 SODIUM 141 mmol/L 08/21/2016 CHEM 14 1851510 CREATININE 0.66 mg/dL 08/21/2016 CHEM 14 0811014 CALCIUM 9.3 mg/dL 08/21/2016 CHEM 14 2386560 POTASSIUM 4.0 mmol/L 08/21/2016 CHEM 14 3823353 TOTAL PROTEIN 6.6 g/dL 08/21/2016 CHEM 14 5681805 GLUCOSE 145 mg/dL 08/21/2016 CHEM 14 2844790 Bicarbonate 29 mmol/L 08/21/2016 CHEM 14 2992998 AGAP 7 mmol/L 08/21/2016 TSH 5979529 TSH 1.485 uIU/mL 08/21/2016 MEAN GLUC 1775886 Calc Mean Gluc 166 mg/dL 08/21/2016 Cbc With Differential Ord2 WBC 6.53 K/ul 04/24/2016 Cbc With Differential Ord2 RBC 4.73 M/ul 04/24/2016 Cbc With Differential Ord2 HGB 12.0 g/dl 04/24/2016 Cbc With Differential Ord2 Neut% 55.1 % 04/24/2016 Cbc With Differential Ord2 HCT 38.9 % 04/24/2016 Cbc With Differential Ord2 MCV 82.2 fl 04/24/2016 Cbc With Differential Ord2 Lymph% 22.8 % 04/24/2016 Cbc With Differential Ord2 [place]% 10.9 % 04/24/2016 Cbc With Differential Ord2 MCH 25.4 pg 04/24/2016 Cbc With Differential Ord2 MCHC 30.8 pg 04/24/2016 Cbc With Differential Ord2 Eos% 10.0 % 04/24/2016 Cbc With Differential Ord2 Baso% 1.2 % 04/24/2016 Cbc With Differential Ord2 PLT 338 K/ul 04/24/2016 Cbc With Differential Ord2 RDW 16.7 % 04/24/2016 Cbc With Differential Ord2 Neut ABS# 3.60 K/ul 04/24/2016 Cbc With Differential Ord2 Lymph ABS# 1.49 K/ul 04/24/2016 Cbc With Differential Ord2 [place] ABS# 0.7 K/ul 04/24/2016 Cbc With Differential Ord2 Eos ABS# 0.7 K/ul 04/24/2016 Cbc With Differential Ord2 Baso ABS# 0.1 K/ul 04/24/2016 Comp Metabolic Wpl568 NA 138 mEq/L 04/24/2016 Comp Metabolic Tmy917 K 4.3 mEq/L 04/24/2016 Comp Metabolic Czi016 CL 103 mEq/L 04/24/2016 Comp Metabolic Xzo829 CO2 28.0 mEq/L 04/24/2016 Comp Metabolic Yfz448 ANION GAP 11 04/24/2016 Comp Metabolic Woj163 GLUCOSE 138 mg/dL 04/24/2016 Comp Metabolic Gkh740 Creat 0.6 mg/dL 04/24/2016 Comp Metabolic Cjh121 eGFR 98 ml/min/1.73m2 04/24/2016 Comp Metabolic Bay963 BUN 16 mg/dL 04/24/2016 Comp Metabolic Mjk873 B/C Ratio 25.4 Ratio 04/24/2016 Comp Metabolic Psr753 CALCIUM 9.2 mg/dL 04/24/2016 Comp Metabolic Zre544 ALK PHOS 55 U/L 04/24/2016 Comp Metabolic Ews606 AST(SGOT) 16 U/L 04/24/2016 Comp Metabolic Wdv841 ALT(SGPT) 16 U/L 04/24/2016 Comp Metabolic Kdk013 BILI T 0.6 mg/dL 04/24/2016 Comp Metabolic Fdw306 ALBUMIN 3.9 g/dL 04/24/2016 Comp Metabolic Ijp943 TPRO 6.1 g/dL 04/24/2016 Comp Metabolic Coe025 GLOB 2.2 g/dL 04/24/2016 Comp Metabolic Rlr128 A/G Ratio 1.7 Ratio 04/24/2016 Comp Metabolic Rcu376 Osmo 279 mOsmo 04/24/2016 Lipid Ord30 CHOL 208 mg/dL 04/24/2016 Lipid Ord30 HDL 42.0 mg/dl 04/24/2016 Lipid Ord30 TRIG 98 mg/dL 04/24/2016 Lipid Ord30 LDL 146 mg/dL 04/24/2016 Lipid Ord30 C/HDL 5.0 Ratio 04/24/2016 %Hba1C Jju918 % HbA1c 75942- 6 7.5 % 04/24/2016 %Hba1C Yoi581 Gluc [address] 169 mg/dL 04/24/2016 Tsh Ord6 hTSH II 0.82 uIU/mL 04/24/2016 Free T4 Hsx519 FREE T4 1.17 ng/dL 04/24/2016 Digoxin Ord9 DIGOXIN 0.9 NG/ML 02/03/2016 Free T4 Aii201 FREE T4 1.17 ng/dL 12/07/2015 %Hba1C Kse203 % HbA1c 03864- 6 7.5 % 12/07/2015 %Hba1C Uno584 Gluc Ave 169 mg/dL 12/07/2015 Tsh Ord6 hTSH II 0.90 uIU/mL 12/07/2015 Cbc With Differential Ord2 WBC 7.43 K/ul 12/07/2015 Cbc With Differential Ord2 RBC 4.70 M/ul 12/07/2015 Cbc With Differential Ord2 HGB 12.0 g/dl 12/07/2015 Cbc With Differential Ord2 Neut% 69.5 % 12/07/2015 Cbc With Differential Ord2 HCT 39.1 % 12/07/2015 Cbc With Differential Ord2 Lymph% 16.6 % 12/07/2015 Cbc With Differential Ord2 MCV 83.2 fl 12/07/2015 Cbc With Differential Ord2 MCH 25.5 pg 12/07/2015 Cbc With Differential Ord2 [place]% 9.3 % 12/07/2015 Cbc With Differential Ord2 Eos% 3.9 % 12/07/2015 Cbc With Differential Ord2 MCHC 30.7 pg 12/07/2015 Cbc With Differential Ord2 PLT 346 K/ul 12/07/2015 Cbc With Differential Ord2 Baso% 0.7 % 12/07/2015 Cbc With Differential Ord2 RDW 16.9 % 12/07/2015 Cbc With Differential Ord2 Neut ABS# 5.17 K/ul 12/07/2015 Cbc With Differential Ord2 Lymph ABS# 1.23 K/ul 12/07/2015 Cbc With Differential Ord2 [place] ABS# 0.7 K/ul 12/07/2015 Cbc With Differential Ord2 Eos ABS# 0.3 K/ul 12/07/2015 Cbc With Differential Ord2 Baso ABS# 0.1 K/ul 12/07/2015 Lipid Ord30 CHOL 196 mg/dL 12/07/2015 Lipid Ord30 HDL 41.0 mg/dl 12/07/2015 Lipid Ord30 TRIG 142 mg/dL 12/07/2015 Lipid Ord30 LDL 127 mg/dL 12/07/2015 Lipid Ord30 C/HDL 4.8 Ratio 12/07/2015 Comp Metabolic Qci819 NA 139 mEq/L 12/07/2015 Comp Metabolic Hhz779 K 4.3 mEq/L 12/07/2015 Comp Metabolic Dvq041 CL 101 mEq/L 12/07/2015 Comp Metabolic Kro156 CO2 33.0 mEq/L 12/07/2015 Comp Metabolic Fwz057 ANION GAP 9 12/07/2015 Comp Metabolic Kdm776 GLUCOSE 159 mg/dL 12/07/2015 Comp Metabolic Tll189 Creat 0.6 mg/dL 12/07/2015 Comp Metabolic Cza024 eGFR 108 ml/min/1.73m2 12/07/2015 Comp Metabolic Ldy330 BUN 13 mg/dL 12/07/2015 Comp Metabolic Xte390 B/C Ratio 22.4 Ratio 12/07/2015 Comp Metabolic Anx230 CALCIUM 9.0 mg/dL 12/07/2015 Comp Metabolic Sza109 ALK PHOS 60 U/L 12/07/2015 Comp Metabolic Pnr758 AST(SGOT) 16 U/L 12/07/2015 Comp Metabolic Amx754 ALT(SGPT) 19 U/L 12/07/2015 Comp Metabolic Too062 BILI T 0.6 mg/dL 12/07/2015 Comp Metabolic Qbq503 ALBUMIN 4.0 g/dL 12/07/2015 Comp Metabolic Tzi810 TPRO 6.0 g/dL 12/07/2015 Comp Metabolic Ofv483 GLOB 2.0 g/dL 12/07/2015 Comp Metabolic Alv093 A/G Ratio 1.9 Ratio 12/07/2015 Comp Metabolic Glp316 Osmo 281 mOsmo 12/07/2015 Cbc With Differential Ord2 WBC 5.8 K/uL [...] hTSH II 1.10 uIU/mL 06/14/2015 Free T4 Ggz757 FREE T4 1.31 ng/dL 06/14/2015 %Hba1C Vgl154 % HbA1c 06102- 6 6.8 % 06/14/2015 %Hba1C Mih933 Gluc Ave 148 mg/dL 06/14/2015 CHEM 14 1396409 AST 14 U/L 12/07/2014 CHEM 14 0863817 ALT 12 IU/L 12/07/2014 CHEM 14 5241349 BUN 12 MG/DL 12/07/2014 CHEM 14 8329495 ALBUMIN 3.9 GM/DL 12/07/2014 CHEM 14 9993163 CHLORIDE 103 MMOL/L 12/07/2014 CHEM 14 9312801 BILI TOT 0.6 MG/DL 12/07/2014 CHEM 14 8212232 ALK PHOS 49 U/L 12/07/2014 CHEM 14 0599461 SODIUM 140 MMOL/L 12/07/2014 CHEM 14 7999500 CREATININE 0.57 MG/DL 12/07/2014 CHEM 14 7410265 CALCIUM 9.5 MG/DL 12/07/2014 CHEM 14 0771923 POTASSIUM 4.0 MMOL/L 12/07/2014 CHEM 14 3355249 PROT TOT 6.5 GM/DL 12/07/2014 CHEM 14 9797331 GLUCOSE 110 MG/DL 12/07/2014 CHEM 14 9035035 BICARB 29 MMOL/L 12/07/2014 CHEM 14 6015284 ANION GAP 8 MEQ/L 12/07/2014 A1C HPLC 0704135 A1C HPLC 13728-4 6.4 % 12/07/2014 TSH 7864784 TSH 1.106 uIU/ML 12/07/2014 LIPID GRP HDL TEST 46 MG/DL 12/07/2014 LIPID GRP TRIG 119 MG/DL 12/07/2014 LIPID GRP TEST LDL 108 MG/DL 12/07/2014 LIPID GRP CHOL 178 MG/DL 12/07/2014 LIPID GRP RCHOL/HDL 3.87 RATIO 12/07/2014 LIPID GRP NON-HDL CH 132 MG/DL 12/07/2014 CBC 4259880 WBC 6.4 10e9/L 12/07/2014 CBC 0069348 RBC 4.51 10e12/L 12/07/2014 CBC 3530841 HGB 12.2 g/dL 12/07/2014 CBC 0925482 HCT DET 39.0 % 12/07/2014 CBC 6550346 MCV 86.5 fL 12/07/2014 CBC 2189023 MCH 27.1 pg 12/07/2014 CBC 0052259 MCHC 31.3 g/dL 12/07/2014 CBC 9828585 PLT 325 10e9/L 12/07/2014 CBC 7585826 MPV 10.4 fL 12/07/2014 CBC 8431191 TIM % 62.0 % 12/07/2014 CBC 9741072 LY % 21.4 % 12/07/2014 CBC 8864889 MON % 9.5 % 12/07/2014 CBC 2292969 EOS % 6.3 % 12/07/2014 CBC 5287736 BASO % 0.8 % 12/07/2014 CBC 1949862 RDW 15.8 % 12/07/2014 CBC 1775708 ABS TIM 3.97 10e9/L 12/07/2014 CBC 6126684 ABS LYMPH 1.37 10e9/L 12/07/2014 CBC 3263426 ABS MONO 0.61 10e9/L 12/07/2014 CBC 4325330 ABS EOS 0.40 10e9/L 12/07/2014 CBC 4019277 ABS BASO 0.05 10e9/L 12/07/2014 CBC 3742224 RDW-SD 48.8 fL 12/07/2014 FREE T4 7459519 FREE T4 1.37 NG/DL 12/07/2014 GFR CALC 9044576 GFR AA >60 ML/MIN 12/07/2014 GFR CALC 6274071 GFR NON-AA >60 ML/MIN 12/07/2014 CHEM 14 5302720 AST 17 U/L 11/04/2013 CHEM 14 20280111 ALT 16 IU/L 11/04/2013 CHEM 14 9962108 BUN 13 MG/DL 11/04/2013 CHEM 14 9443370 ALBUMIN 4.3 GM/DL 11/04/2013 CHEM 14 8719417 CHLORIDE 104 MMOL/L 11/04/2013 CHEM 14 9218724 BILI TOT 0.7 MG/DL 11/04/2013 CHEM 14 0425751 ALK PHOS 67 U/L 11/04/2013 CHEM 14 0081717 SODIUM 140 MMOL/L 11/04/2013 CHEM 14 3200272 CREATININE 0.64 MG/DL 11/04/2013 CHEM 14 3129247 CALCIUM 9.5 MG/DL 11/04/2013 CHEM 14 6857588 POTASSIUM 4.0 MMOL/L 11/04/2013 CHEM 14 1915432 PROT TOT 6.1 GM/DL 11/04/2013 CHEM 14 7778529 GLUCOSE 157 MG/DL 11/04/2013 CHEM 14 8381035 BICARB 27 MMOL/L 11/04/2013 CHEM 14 6577245 ANION GAP 9 MEQ/L 11/04/2013 FREE T4 9675056 FREE T4 1.44 NG/DL 11/04/2013 GFR CALC 3087920 GFR AA >60 ML/MIN 11/04/2013 GFR CALC 7249124 GFR NON-AA >60 ML/MIN 11/04/2013 TSH 7872109 TSH 0.841 uIU/ML 11/04/2013 A1C HPLC 4166185 A1C HPLC 91312-0 7.2 % 11/04/2013 LIPID GRP HDL TEST 45 MG/DL 11/04/2013 LIPID GRP TRIG 104 MG/DL 11/04/2013 LIPID GRP TEST LDL 82 MG/DL 11/04/2013 LIPID GRP CHOL 148 MG/DL 11/04/2013 LIPID GRP RCHOL/HDL 3.29 RATIO 11/04/2013 CBC 0527692 WBC 6.2 10e9/L 11/04/2013 CBC 9069939 RBC 4.38 10e12/L 11/04/2013 CBC 5668909 HGB 11.8 g/dL 11/04/2013 CBC 9443174 HCT DET 37.5 % 11/04/2013 CBC 2014377 MCV 85.6 fL 11/04/2013 CBC 8877427 MCH 26.9 pg 11/04/2013 CBC 1453879 MCHC 31.5 g/dL 11/04/2013 CBC 2570634 PLT 330 10e9/L 11/04/2013 CBC 8862896 MPV 10.6 fL 11/04/2013 CBC 6108492 TIM % 60.8 % 11/04/2013 CBC 6146669 LY % 22.1 % 11/04/2013 CBC 4926353 MON % 9.6 % 11/04/2013 CBC 2990698 EOS % 6.4 % 11/04/2013 CBC 1777084 BASO % 1.1 % 11/04/2013 CBC 6645187 RDW 15.6 % 11/04/2013 CBC 1135563 ABS TIM 3.77 10e9/L 11/04/2013 CBC 8613783 ABS LYMPH 1.37 10e9/L 11/04/2013 CBC 0897214 ABS MONO 0.60 10e9/L 11/04/2013 CBC 9871586 ABS EOS 0.40 10e9/L 11/04/2013 CBC 1915874 ABS BASO 0.07 10e9/L 11/04/2013 CBC 7888536 RDW-SD 48.0 fL 11/04/2013 DIGOXIN 6595299 DIGOXIN 0.5 NG/ML 11/04/2013 A1C HPLC 8790088 A1C HPLC 96564-3 7.6 % 07/28/2013 LIPID GRP HDL TEST 38 MG/DL 07/28/2013 LIPID GRP TRIG 137 MG/DL 07/28/2013 LIPID GRP TEST LDL 73 MG/DL 07/28/2013 LIPID GRP CHOL 138 MG/DL 07/28/2013 LIPID GRP RCHOL/HDL 3.63 RATIO 07/28/2013 LIVER PNL 0145476 BILI DIR 0.2 MG/DL 07/28/2013 DIGOXIN 4832413 DIGOXIN 0.4 NG/ML 07/28/2013 CBC 5104649 WBC 7.2 10e9/L 07/28/2013 CBC 3633636 RBC 4.65 10e12/L 07/28/2013 CBC 6073854 HGB 12.6 g/dL 07/28/2013 CBC 0532223 HCT DET 39.6 % 07/28/2013 CBC 3188679 MCV 85.2 fL 07/28/2013 CBC 9006598 MCH 27.1 pg 07/28/2013 CBC 6983375 MCHC 31.8 g/dL 07/28/2013 CBC 1810660 PLT 344 10e9/L 07/28/2013 CBC 3985234 MPV 10.7 fL 07/28/2013 CBC 5232209 TIM % 61.4 % 07/28/2013 CBC 9322595 LY % 22.4 % 07/28/2013 CBC 7500796 MON % 8.4 % 07/28/2013 CBC 2232134 EOS % 6.8 % 07/28/2013 CBC 5980876 BASO % 1.0 % 07/28/2013 CBC 0808635 RDW 15.5 % 07/28/2013 CBC 6088788 ABS TIM 4.42 10e9/L 07/28/2013 CBC 3198616 ABS LYMPH 1.61 10e9/L 07/28/2013 CBC 5654652 ABS MONO 0.60 10e9/L 07/28/2013 CBC 2610361 ABS EOS 0.49 10e9/L 07/28/2013 CBC 3788249 ABS BASO 0.07 10e9/L 07/28/2013 CBC 0763829 RDW-SD 47.2 fL 07/28/2013 GFR CALC 0668146 GFR AA >60 ML/MIN 07/28/2013 GFR CALC 8816450 GFR NON-AA >60 ML/MIN 07/28/2013 CHEM 14 8342802 AST 20 U/L 07/28/2013 CHEM 14 7218848 ALT 19 IU/L 07/28/2013 CHEM 14 4547699 BUN 13 MG/DL 07/28/2013 CHEM 14 2640653 ALBUMIN 4.1 GM/DL 07/28/2013 CHEM 14 1797819 CHLORIDE 102 MMOL/L 07/28/2013 CHEM 14 0255653 BILI TOT 0.7 MG/DL 07/28/2013 CHEM 14 7662830 ALK PHOS 62 U/L 07/28/2013 CHEM 14 9891974 SODIUM 139 MMOL/L 07/28/2013 CHEM 14 2895965 CREATININE 0.66 MG/DL 07/28/2013 CHEM 14 1066407 CALCIUM 9.3 MG/DL 07/28/2013 CHEM 14 9939227 POTASSIUM 4.4 MMOL/L 07/28/2013 CHEM 14 7272923 PROT TOT 6.2 GM/DL 07/28/2013 CHEM 14 4215933 GLUCOSE 160 MG/DL 07/28/2013 CHEM 14 3599377 BICARB 29 MMOL/L 07/28/2013 CHEM 14 8433382 ANION GAP 8 MEQ/L 07/28/2013 DIGOXIN 0869571 DIGOXIN 0.6 NG/ML 05/12/2013 GFR CALC 5970911 GFR AA >60 ML/MIN 04/29/2013 GFR CALC 2496128 GFR NON-AA >60 ML/MIN 04/29/2013 A1C 4297518 A1C HPLC 25874- 6 7.5 % 04/29/2013 TSH 3578712 TSH 1.161 uIU/ML 04/29/2013 CHEM 14 1958013 AST 14 U/L 04/29/2013 CHEM 14 6994348 ALT 14 IU/L 04/29/2013 CHEM 14 4632776 BUN 13 MG/DL 04/29/2013 CHEM 14 3340930 ALBUMIN 4.1 GM/DL 04/29/2013 CHEM 14 0557772 CHLORIDE 102 MMOL/L 04/29/2013 CHEM 14 6354426 BILI TOT 0.7 MG/DL 04/29/2013 CHEM 14 3536378 ALK PHOS 75 U/L 04/29/2013 CHEM 14 6769015 SODIUM 139 MMOL/L 04/29/2013 CHEM 14 7643251 CREATININE 0.62 MG/DL 04/29/2013 CHEM 14 3635853 CALCIUM 9.3 MG/DL 04/29/2013 CHEM 14 5584698 POTASSIUM 4.0 MMOL/L 04/29/2013 CHEM 14 5434342 PROT TOT 6.5 GM/DL 04/29/2013 CHEM 14 6683459 GLUCOSE 152 MG/DL 04/29/2013 CHEM 14 1577589 BICARB 31 MMOL/L 04/29/2013 CHEM 14 3114754 ANION GAP 6 MEQ/L 04/29/2013 CBC 4881701 WBC 7.4 10e9/L 04/29/2013 CBC 0461708 RBC 4.70 10e12/L 04/29/2013 CBC 6857440 HGB 12.8 g/dL 04/29/2013 CBC 1470903 HCT DET 40.1 % 04/29/2013 CBC 0158079 MCV 85.3 fL 04/29/2013 CBC 6499486 MCH 27.2 pg 04/29/2013 CBC 9065992 MCHC 31.9 g/dL 04/29/2013 CBC 0131475 PLT 312 10e9/L 04/29/2013 CBC 1516895 MPV 10.4 fL 04/29/2013 CBC 1981088 TIM % 64.9 % 04/29/2013 CBC 8620119 LY % 20.0 % 04/29/2013 CBC 7221242 MON % 8.6 % 04/29/2013 CBC 4010341 EOS % 5.3 % 04/29/2013 CBC 4513032 BASO % 1.2 % 04/29/2013 CBC 0574344 RDW 15.4 % 04/29/2013 CBC 0648796 ABS TIM 4.80 10e9/L 04/29/2013 CBC 7324341 ABS LYMPH 1.48 10e9/L 04/29/2013 CBC 1554482 ABS MONO 0.64 10e9/L 04/29/2013 CBC 6271305 ABS EOS 0.39 10e9/L 04/29/2013 CBC 6438868 ABS BASO 0.09 10e9/L 04/29/2013 CBC 1934210 RDW-SD 47.3 fL 04/29/2013 LIPID GRP HDL TEST 43 MG/DL 04/29/2013 LIPID GRP TRIG 111 MG/DL 04/29/2013 LIPID GRP TEST LDL 65 MG/DL 04/29/2013 LIPID GRP CHOL 130 MG/DL 04/29/2013 LIPID GRP RCHOL/HDL 3.02 RATIO 04/29/2013 TSH 4380152 TSH 1.406 uIU/ML 12/28/2012 A1C 6293376 A1C HPLC 92175- 6 7.2 % 12/28/2012 LIPID GRP HDL TEST 54 MG/DL 12/27/2012 LIPID GRP TRIG 94 MG/DL 12/27/2012 LIPID GRP TEST LDL 42 MG/DL 12/27/2012 LIPID GRP CHOL 115 MG/DL 12/27/2012 LIPID GRP RCHOL/HDL 2.13 RATIO 12/27/2012 GFR CALC 7984116 GFR AA >60 ML/MIN 12/27/2012 GFR CALC 1282040 GFR NON-AA >60 ML/MIN 12/27/2012 CHEM 14 5732818 AST 14 U/L 12/27/2012 CHEM 14 9496934 ALT 13 IU/L 12/27/2012 CHEM 14 3679097 BUN 13 MG/DL 12/27/2012 CHEM 14 9365532 ALBUMIN 4.5 GM/DL 12/27/2012 CHEM 14 5876020 CHLORIDE 105 MMOL/L 12/27/2012 CHEM 14 0775822 BILI TOT 0.8 MG/DL 12/27/2012 CHEM 14 2641446 ALK PHOS 69 U/L 12/27/2012 CHEM 14 6354479 SODIUM 142 MMOL/L 12/27/2012 CHEM 14 9504293 CREATININE 0.73 MG/DL 12/27/2012 CHEM 14 5311983 CALCIUM 9.7 MG/DL 12/27/2012 CHEM 14 2030928 POTASSIUM 4.1 MMOL/L 12/27/2012 CHEM 14 0871520 PROT TOT 6.8 GM/DL 12/27/2012 CHEM 14 1149724 GLUCOSE 133 MG/DL 12/27/2012 CHEM 14 3427374 BICARB 30 MMOL/L 12/27/2012 CHEM 14 1428289 ANION GAP 7 MEQ/L 12/27/2012 CBC 9365420 WBC 6.8 10e9/L 12/27/2012 CBC 1313050 RBC 4.72 10e12/L 12/27/2012 CBC 7660006 HGB 12.5 g/dL 12/27/2012 CBC 7709388 HCT DET 39.6 % 12/27/2012 CBC 7757460 MCV 83.9 fL 12/27/2012 CBC 5289010 MCH 26.5 pg 12/27/2012 CBC 5286550 MCHC 31.6 g/dL 12/27/2012 CBC 2663330 PLT 336 10e9/L 12/27/2012 CBC 5703465 MPV 10.4 fL 12/27/2012 CBC 5173478 TIM % 60.7 % 12/27/2012 CBC 2019822 LY % 24.6 % 12/27/2012 CBC 8076588 MON % 8.4 % 12/27/2012 CBC 6935710 EOS % 5.3 % 12/27/2012 CBC 3011138 BASO % 1.0 % 12/27/2012 CBC 7645388 RDW 16.6 % 12/27/2012 CBC 7339685 ABS TIM 4.13 10e9/L 12/27/2012 CBC 8266301 ABS LYMPH 1.67 10e9/L 12/27/2012 CBC 9725517 ABS MONO 0.57 10e9/L 12/27/2012 CBC 7915161 ABS EOS 0.36 10e9/L 12/27/2012 CBC 4786567 ABS BASO 0.07 10e9/L 12/27/2012 CBC 2542258 RDW-SD 50.1 fL 12/27/2012 GFR CALC 4080575 GFR AA >60 ML/MIN 08/27/2012 GFR CALC 8261432 GFR NON-AA >60 ML/MIN 08/27/2012 CHEM 14 3709277 AST 15 U/L 08/27/2012 CHEM 14 0525211 ALT 17 IU/L 08/27/2012 CHEM 14 2871627 BUN 14 MG/DL 08/27/2012 CHEM 14 1786688 ALBUMIN 4.2 GM/DL 08/27/2012 CHEM 14 4702043 CHLORIDE 103 MMOL/L 08/27/2012 CHEM 14 7221846 BILI TOT 0.6 MG/DL 08/27/2012 CHEM 14 9060310 ALK PHOS 86 U/L 08/27/2012 CHEM 14 8750387 SODIUM 141 MMOL/L 08/27/2012 CHEM 14 1045062 CREATININE 0.64 MG/DL 08/27/2012 CHEM 14 1604386 CALCIUM 9.5 MG/DL 08/27/2012 CHEM 14 6148641 POTASSIUM 4.1 MMOL/L 08/27/2012 CHEM 14 6677032 PROT TOT 6.1 GM/DL 08/27/2012 CHEM 14 8550572 GLUCOSE 151 MG/DL 08/27/2012 CHEM 14 6694596 BICARB 30 MMOL/L 08/27/2012 CHEM 14 4035430 ANION GAP 8 MEQ/L 08/27/2012 FREE T4 4835953 FREE T4 1.36 NG/DL 08/27/2012 CBC 2361521 WBC 7.8 10e9/L 08/27/2012 CBC 0716302 RBC 4.54 10e12/L 08/27/2012 CBC 4113118 HGB 12.0 g/dL 08/27/2012 CBC 7514822 HCT DET 37.9 % 08/27/2012 CBC 2725843 MCV 83.5 fL 08/27/2012 CBC 6541275 MCH 26.4 pg 08/27/2012 CBC 7651040 MCHC 31.7 g/dL 08/27/2012 CBC 9605643 PLT 370 10e9/L 08/27/2012 CBC 7443730 MPV 10.7 fL 08/27/2012 CBC 2896613 TIM % 65.7 % 08/27/2012 CBC 4829604 LY % 19.5 % 08/27/2012 CBC 6876548 MON % 9.0 % 08/27/2012 CBC 2577168 EOS % 5.0 % 08/27/2012 CBC 4109244 BASO % 0.8 % 08/27/2012 CBC 5849903 RDW 15.4 % 08/27/2012 CBC 9038149 ABS TIM 5.12 10e9/L 08/27/2012 CBC 8685246 ABS LYMPH 1.52 10e9/L 08/27/2012 CBC 1906674 ABS MONO 0.70 10e9/L 08/27/2012 CBC 8803810 ABS EOS 0.39 10e9/L 08/27/2012 CBC 0323094 ABS BASO 0.06 10e9/L 08/27/2012 CBC 6522874 RDW-SD 46.3 fL 08/27/2012 A1C HPLC 7723712 A1C HPLC 95212-9 7.3 % 08/27/2012 LIPID GRP HDL TEST 41 MG/DL 08/27/2012 LIPID GRP TRIG 120 MG/DL 08/27/2012 LIPID GRP TEST LDL 67 MG/DL 08/27/2012 LIPID GRP CHOL 132 MG/DL 08/27/2012 LIPID GRP RCHOL/HDL 3.22 RATIO 08/27/2012 TSH 4635522 TSH 0.933 uIU/ML 08/27/2012 DIGOXIN 9190967 DIGOXIN 1.4 NG/ML 07/15/2012 CBC 5484633 WBC 6.3 10e9/L 07/15/2012 CBC 2516813 RBC 4.44 10e12/L 07/15/2012 CBC 5568466 HGB 11.8 g/dL 07/15/2012 CBC 3324105 HCT DET 36.9 % 07/15/2012 CBC 5536221 MCV 83.1 fL 07/15/2012 CBC 4674992 MCH 26.6 pg 07/15/2012 CBC 3147548 MCHC 32.0 g/dL 07/15/2012 CBC 5237735 PLT 316 10e9/L 07/15/2012 CBC 2245129 MPV 10.3 fL 07/15/2012 CBC 9396706 TIM % 64.4 % 07/15/2012 CBC 1016473 LY % 19.6 % 07/15/2012 CBC 6884649 MON % 9.1 % 07/15/2012 CBC 1053450 EOS % 6.1 % 07/15/2012 CBC 7165758 BASO % 0.8 % 07/15/2012 CBC 6344689 RDW 15.3 % 07/15/2012 CBC 5027707 ABS TIM 4.06 10e9/L 07/15/2012 CBC 1974481 ABS LYMPH 1.23 10e9/L 07/15/2012 CBC 9591617 ABS MONO 0.57 10e9/L 07/15/2012 CBC 5800597 ABS EOS 0.38 10e9/L 07/15/2012 CBC 1153888 ABS BASO 0.05 10e9/L 07/15/2012 CBC 9501515 RDW-SD 46.2 fL 07/15/2012 DIGOXIN 7593524 DIGOXIN 1.4 NG/ML 07/04/2012 BMP 5572285 GLUCOSE 137 MG/DL 07/04/2012 BMP 6261321 CREATININE 0.86 MG/DL 07/04/2012 BMP 6074729 BUN 14 MG/DL 07/04/2012 BMP 8937360 SODIUM 140 MMOL/L 07/04/2012 BMP 8971592 POTASSIUM 4.5 MMOL/L 07/04/2012 BMP 0667854 CHLORIDE 103 MMOL/L 07/04/2012 BMP 0064854 BICARB 28 MMOL/L 07/04/2012 BMP 8733547 ANION GAP 9 MEQ/L 07/04/2012 BMP 7422545 CALCIUM 9.7 MG/DL 07/04/2012 CBC 3497692 WBC 6.9 10e9/L 07/04/2012 CBC 3754344 RBC 4.56 10e12/L 07/04/2012 CBC 6034321 HGB 12.2 g/dL 07/04/2012 CBC 3502316 HCT DET 38.1 % 07/04/2012 CBC 3881586 MCV 83.6 fL 07/04/2012 CBC 7953707 MCH 26.8 pg 07/04/2012 CBC 6262435 MCHC 32.0 g/dL 07/04/2012 CBC 5149733 PLT 382 10e9/L 07/04/2012 CBC 6951279 MPV 10.6 fL 07/04/2012 CBC 1022471 TIM % 58.7 % 07/04/2012 CBC 1907825 LY % 23.7 % 07/04/2012 CBC 7163132 MON % 10.2 % 07/04/2012 CBC 6771792 EOS % 6.4 % 07/04/2012 CBC 0680797 BASO % 1.0 % 07/04/2012 CBC 2469622 RDW 15.8 % 07/04/2012 CBC 5835077 ABS TIM 4.05 10e9/L 07/04/2012 CBC 0972935 ABS LYMPH 1.64 10e9/L 07/04/2012 CBC 6225324 ABS MONO 0.70 10e9/L 07/04/2012 CBC 5067968 ABS EOS 0.44 10e9/L 07/04/2012 CBC 1529791 ABS BASO 0.07 10e9/L 07/04/2012 CBC 2414420 RDW-SD 47.5 fL 07/04/2012 GFR CALC 1653474 GFR AA >60 ML/MIN 07/04/2012 GFR CALC 2826223 GFR NON-AA >60 ML/MIN 07/04/2012 A1C HPLC 7414226 A1C HPLC 48506-3 7.1 % 03/27/2012 GFR CALC 3463136 GFR AA >60 ML/MIN 03/26/2012 GFR CALC 5103981 GFR NON-AA >60 ML/MIN 03/26/2012 LIPID GRP HDL TEST 40 MG/DL 03/26/2012 LIPID GRP TRIG 93 MG/DL 03/26/2012 LIPID GRP TEST LDL 62 MG/DL 03/26/2012 LIPID GRP CHOL 121 MG/DL 03/26/2012 LIPID GRP RCHOL/HDL 3.03 RATIO 03/26/2012 TSH 5597212 TSH 0.842 uIU/ML 03/26/2012 FREE T4 2439542 FREE T4 1.30 NG/DL 03/26/2012 CBC 6495746 WBC 5.3 10e9/L 03/26/2012 CBC 4993843 RBC 4.70 10e12/L 03/26/2012 CBC 5859315 HGB 12.1 g/dL 03/26/2012 CBC 1015557 HCT DET 38.1 % 03/26/2012 CBC 4082090 MCV 81.1 fL 03/26/2012 CBC 4435222 MCH 25.7 pg 03/26/2012 CBC 8901873 MCHC 31.8 g/dL 03/26/2012 CBC 1116722 PLT 315 10e9/L 03/26/2012 CBC 2073043 MPV 10.9 fL 03/26/2012 CBC 3352267 TIM % 54.8 % 03/26/2012 CBC 8116811 LY % 25.8 % 03/26/2012 CBC 1690335 MON % 11.6 % 03/26/2012 CBC 0407218 EOS % 7.0 % 03/26/2012 CBC 6378985 BASO % 0.8 % 03/26/2012 CBC 2638064 RDW 16.7 % 03/26/2012 CBC 1795064 ABS TIM 2.90 10e9/L 03/26/2012 CBC 1599817 ABS LYMPH 1.37 10e9/L 03/26/2012 CBC 8349822 ABS MONO 0.61 10e9/L 03/26/2012 CBC 4749163 ABS EOS 0.37 10e9/L 03/26/2012 CBC 6970676 ABS BASO 0.04 10e9/L 03/26/2012 CBC 8137231 RDW-SD 48.8 fL 03/26/2012 CHEM 14 [id number] AST 18 U/L 03/26/2012 CHEM 14 4794896 ALT 17 IU/L 03/26/2012 CHEM 14 2502285 BUN 16 MG/DL 03/26/2012 CHEM 14 [id number] ALBUMIN 4.3 GM/DL 03/26/2012 CHEM 14 6838022 CHLORIDE 103 MMOL/L 03/26/2012 CHEM 14 [id number] BILI TOT 0.9 MG/DL 03/26/2012 CHEM 14 2498150 ALK PHOS 79 U/L 03/26/2012 CHEM 14 [id number] SODIUM 140 MMOL/L 03/26/2012 CHEM 14 [id number] CREATININE 0.70 MG/DL 03/26/2012 CHEM 14 9401844 CALCIUM 9.6 MG/DL 03/26/2012 CHEM 14 3539542 POTASSIUM 4.1 MMOL/L 03/26/2012 CHEM 14 5696563 PROT TOT 6.3 GM/DL 03/26/2012 CHEM 14 [id number] GLUCOSE 142 MG/DL 03/26/2012 CHEM 14 [id number] BICARB 29 MMOL/L 03/26/2012 CHEM 14 8314170 ANION GAP 8 MEQ/L 03/26/2012 LIPID GRP HDL TEST 42 MG/DL 01/08/2012 LIPID GRP TRIG 105 MG/DL 01/08/2012 LIPID GRP TEST LDL 51 MG/DL 01/08/2012 LIPID GRP CHOL 114 MG/DL 01/08/2012 LIPID GRP RCHOL/HDL 2.71 RATIO 01/08/2012 CHEM 14 [id number] AST 24 U/L 01/08/2012 CHEM 14 9949636 ALT 28 IU/L 01/08/2012 CHEM 14 9856578 BUN 15 MG/DL 01/08/2012 CHEM 14 2036984 ALBUMIN 4.3 GM/DL 01/08/2012 CHEM 14 3971284 CHLORIDE 104 MMOL/L 01/08/2012 CHEM 14 9889418 BILI TOT 0.6 MG/DL 01/08/2012 CHEM 14 0109780 ALK PHOS 83 U/L 01/08/2012 CHEM 14 [id number] SODIUM 141 MMOL/L 01/08/2012 CHEM 14 2722105 CREATININE 0.64 MG/DL 01/08/2012 CHEM 14 0387575 CALCIUM 9.4 MG/DL 01/08/2012 CHEM 14 [id number] POTASSIUM 4.0 MMOL/L 01/08/2012 CHEM 14 0772033 PROT TOT 6.7 GM/DL 01/08/2012 CHEM 14 [id number] GLUCOSE 145 MG/DL 01/08/2012 CHEM 14 [id number] BICARB 28 MMOL/L 01/08/2012 CHEM 14 4450190 ANION GAP 9 MEQ/L 01/08/2012 CBC [id number] WBC 5.8 10e9/L 01/08/2012 CBC [id number] RBC 4.36 10e12/L 01/08/2012 CBC [id number] HGB 11.6 g/dL 01/08/2012 CBC [id number] HCT DET 37.4 % 01/08/2012 CBC [id number] MCV 85.8 fL 01/08/2012 CBC 8641519 MCH 26.6 pg 01/08/2012 CBC [id number] MCHC 31.0 g/dL 01/08/2012 CBC [id number] PLT 319 10e9/L 01/08/2012 CBC 7946205 MPV 10.5 fL 01/08/2012 CBC [id number] TIM % 62.2 % 01/08/2012 CBC 4349488 LY % 20.7 % 01/08/2012 CBC [id number] MON % 9.3 % 01/08/2012 CBC 9312921 EOS % 6.4 % 01/08/2012 CBC 6062254 BASO % 1.4 % 01/08/2012 CBC [id number] RDW 14.9 % 01/08/2012 CBC [id number] ABS TIM 3.61 10e9/L 01/08/2012 CBC [id number] ABS LYMPH 1.20 10e9/L 01/08/2012 CBC [id number] ABS MONO 0.54 10e9/L 01/08/2012 CBC [id number] ABS EOS 0.37 10e9/L 01/08/2012 CBC [id number] ABS BASO 0.08 10e9/L 01/08/2012 CBC 9308864 RDW-SD 44.9 fL 01/08/2012 GFR CALC 4572323 GFR AA >60 ML/MIN 01/08/2012 GFR CALC 1485866 GFR NON-AA >60 ML/MIN 01/08/2012 A1C HPLC [id number] A1C HPLC 77954-1 7.2 % 01/08/2012 Review of Systems System Result Effective Dates Constitutional recent illness 11/01/2016 Constitutional fatigue 11/01/2016 Constitutional No fever 11/01/2016 Eyes No eye discharge 11/01/2016 Eyes No eye erythema 11/01/2016 Ears/Nose/Throat/Neck No nasal discharge 11/01/2016 Ears/Nose/Throat/Neck No sore throat 11/01/2016 Ears/Nose/Throat/Neck No sinus congestion 11/01/2016 Cardiovascular No chest pain/pressure 11/01/2016 Respiratory asthma 11/01/2016 Respiratory No chest congestion 11/01/2016 Respiratory chest tightness 11/01/2016 Gastrointestinal No abdominal pain 11/01/2016 Gastrointestinal No constipation 11/01/2016 Gastrointestinal No diarrhea 11/01/2016 Gastrointestinal No nausea 11/01/2016 Gastrointestinal No vomiting 11/01/2016 Genitourinary/Nephrology No dysuria 11/01/2016 Musculoskeletal No stiffness 11/01/2016 Musculoskeletal No swelling 11/01/2016 Musculoskeletal No muscle weakness 11/01/2016 Musculoskeletal No myalgias 11/01/2016 Dermatologic No rash 11/01/2016 Neurologic No dizziness 11/01/2016 Neurologic No headache 11/01/2016 Neurologic No neck pain 11/01/2016 Neurologic No syncope 11/01/2016 Psychiatric No anxiety 11/01/2016 Psychiatric No depression 11/01/2016 Constitutional fatigue 10/18/2016 Constitutional malaise 10/18/2016 Respiratory cough 10/18/2016 Respiratory chest tightness 10/18/2016 Cardiovascular fatigue 10/18/2016 Cardiovascular exercise intolerance 10/18/2016 Cardiovascular dyspnea 10/18/2016 Constitutional recent illness 10/12/2016 Constitutional fatigue 10/12/2016 Constitutional No fever 10/12/2016 Eyes No eye discharge 10/12/2016 Eyes No eye erythema 10/12/2016 Ears/Nose/Throat/Neck No nasal discharge 10/12/2016 Cardiovascular No chest pain/pressure 10/12/2016 Respiratory asthma 10/12/2016 Respiratory No chest congestion 10/12/2016 Respiratory chest tightness 10/12/2016 Gastrointestinal No abdominal pain 10/12/2016 Dermatologic No rash 10/12/2016 Ears/Nose/Throat/Neck nasal allergies 10/12/2016 Respiratory No cough 10/12/2016 Gastrointestinal gastroesophageal reflux 10/12/2016 Musculoskeletal No joint complaint 10/12/2016 Neurologic No alteration of consciousness 10/12/2016 Neurologic No mental status change 10/12/2016 Constitutional recent illness 09/04/2016 Constitutional fatigue 09/04/2016 Constitutional No fever 09/04/2016 Eyes No eye discharge 09/04/2016 Eyes No eye erythema 09/04/2016 Ears/Nose/Throat/Neck No nasal discharge 09/04/2016 Ears/Nose/Throat/Neck No sore throat 09/04/2016 Ears/Nose/Throat/Neck No sinus congestion 09/04/2016 Cardiovascular No chest pain/pressure 09/04/2016 Respiratory asthma 09/04/2016 Respiratory No chest congestion 09/04/2016 Respiratory chest tightness 09/04/2016 Gastrointestinal No abdominal pain 09/04/2016 Gastrointestinal No constipation 09/04/2016 Gastrointestinal No diarrhea 09/04/2016 Gastrointestinal No nausea 09/04/2016 Gastrointestinal No vomiting 09/04/2016 Genitourinary/Nephrology No dysuria 09/04/2016 Musculoskeletal No stiffness 09/04/2016 Musculoskeletal No swelling 09/04/2016 Musculoskeletal No muscle weakness 09/04/2016 Musculoskeletal No myalgias 09/04/2016 Dermatologic No rash 09/04/2016 Neurologic No dizziness 09/04/2016 Neurologic No headache 09/04/2016 Neurologic No neck pain 09/04/2016 Neurologic No syncope 09/04/2016 Psychiatric No anxiety 09/04/2016 Psychiatric No depression 09/04/2016 Constitutional No recent illness 05/30/2016 Constitutional No chills 05/30/2016 Constitutional No fever 05/30/2016 Eyes No eye erythema 05/30/2016 Ears/Nose/Throat/Neck No nasal discharge 05/30/2016 Cardiovascular No chest pain/pressure 05/30/2016 Cardiovascular No dyspnea 05/30/2016 Respiratory No cough 05/30/2016 Respiratory No dyspnea 05/30/2016 Musculoskeletal joint complaint 05/30/2016 Neurologic No alteration of consciousness 05/30/2016 Neurologic No mental status change 05/30/2016 Constitutional recent illness 05/01/2016 Constitutional fatigue 05/01/2016 Constitutional No fever 05/01/2016 Eyes No eye discharge 05/01/2016 Eyes No eye erythema 05/01/2016 Ears/Nose/Throat/Neck No nasal discharge 05/01/2016 Ears/Nose/Throat/Neck No sore throat 05/01/2016 Ears/Nose/Throat/Neck No sinus congestion 05/01/2016 Cardiovascular No chest pain/pressure 05/01/2016 Respiratory asthma 05/01/2016 Respiratory No chest congestion 05/01/2016 Respiratory chest tightness 05/01/2016 Gastrointestinal No abdominal pain 05/01/2016 Gastrointestinal No constipation 05/01/2016 Gastrointestinal No diarrhea 05/01/2016 Gastrointestinal No nausea 05/01/2016 Gastrointestinal No vomiting 05/01/2016 Genitourinary/Nephrology No dysuria 05/01/2016 Musculoskeletal No stiffness 05/01/2016 Musculoskeletal No swelling 05/01/2016 Musculoskeletal No muscle weakness 05/01/2016 Musculoskeletal No myalgias 05/01/2016 Dermatologic No rash 05/01/2016 Neurologic No dizziness 05/01/2016 Neurologic No headache 05/01/2016 Neurologic No neck pain 05/01/2016 Neurologic No syncope 05/01/2016 Psychiatric No anxiety 05/01/2016 Psychiatric No depression 05/01/2016 Constitutional recent illness 02/29/2016 Constitutional fatigue 02/29/2016 Constitutional No fever 02/29/2016 Eyes No eye discharge 02/29/2016 Eyes No eye erythema 02/29/2016 Ears/Nose/Throat/Neck No nasal discharge 02/29/2016 Ears/Nose/Throat/Neck No sore throat 02/29/2016 Ears/Nose/Throat/Neck No sinus congestion 02/29/2016 Cardiovascular No chest pain/pressure 02/29/2016 Respiratory asthma 02/29/2016 Respiratory No chest congestion 02/29/2016 Respiratory chest tightness 02/29/2016 Gastrointestinal No abdominal pain 02/29/2016 Gastrointestinal No constipation 02/29/2016 Gastrointestinal No diarrhea 02/29/2016 Gastrointestinal No nausea 02/29/2016 Gastrointestinal No vomiting 02/29/2016 Genitourinary/Nephrology No dysuria 02/29/2016 Musculoskeletal No stiffness 02/29/2016 Musculoskeletal No swelling 02/29/2016 Musculoskeletal No muscle weakness 02/29/2016 Musculoskeletal No myalgias 02/29/2016 Dermatologic No rash 02/29/2016 Neurologic No dizziness 02/29/2016 Neurologic No headache 02/29/2016 Neurologic No neck pain 02/29/2016 Neurologic No syncope 02/29/2016 Psychiatric No anxiety 02/29/2016 Psychiatric No depression 02/29/2016 Constitutional recent illness 02/03/2016 Constitutional No fever 02/03/2016 Eyes No eye discharge 02/03/2016 Eyes No eye erythema 02/03/2016 Ears/Nose/Throat/Neck nasal discharge 02/03/2016 Ears/Nose/Throat/Neck neck pain 02/03/2016 Ears/Nose/Throat/Neck sinus congestion 02/03/2016 Ears/Nose/Throat/Neck No sore throat 02/03/2016 Cardiovascular No chest pain/pressure 02/03/2016 Respiratory No chest congestion 02/03/2016 Respiratory No chest tightness 02/03/2016 Gastrointestinal No abdominal pain 02/03/2016 Gastrointestinal No constipation 02/03/2016 Gastrointestinal diarrhea 02/03/2016 Gastrointestinal No nausea 02/03/2016 Gastrointestinal No vomiting 02/03/2016 Genitourinary/Nephrology No dysuria 02/03/2016 Musculoskeletal No joint complaint 02/03/2016 Dermatologic No rash 02/03/2016 Psychiatric No anxiety 02/03/2016 Psychiatric No depression 02/03/2016 Constitutional fatigue 02/03/2016 Constitutional recent illness 12/21/2015 Constitutional No fever 12/21/2015 Eyes No eye discharge 12/21/2015 Eyes No eye erythema 12/21/2015 Ears/Nose/Throat/Neck No nasal discharge 12/21/2015 Ears/Nose/Throat/Neck No sore throat 12/21/2015 Ears/Nose/Throat/Neck No sinus congestion 12/21/2015 Cardiovascular No chest pain/pressure 12/21/2015 Respiratory No chest congestion 12/21/2015 Respiratory chest tightness 12/21/2015 Gastrointestinal No abdominal pain 12/21/2015 Gastrointestinal No constipation 12/21/2015 Gastrointestinal No diarrhea 12/21/2015 Gastrointestinal No nausea 12/21/2015 Gastrointestinal No vomiting 12/21/2015 Genitourinary/Nephrology No dysuria 12/21/2015 Musculoskeletal No stiffness 12/21/2015 Musculoskeletal No swelling 12/21/2015 Musculoskeletal No muscle weakness 12/21/2015 Musculoskeletal No myalgias 12/21/2015 Dermatologic No rash 12/21/2015 Neurologic No dizziness 12/21/2015 Neurologic No headache 12/21/2015 Neurologic No neck pain 12/21/2015 Neurologic No syncope 12/21/2015 Psychiatric No anxiety 12/21/2015 Psychiatric No depression 12/21/2015 Constitutional fatigue 12/21/2015 Respiratory asthma 12/21/2015 Constitutional fatigue 10/25/2015 Constitutional malaise 10/25/2015 Eyes No blindness 10/25/2015 Eyes No eye discharge 10/25/2015 Eyes No eye erythema 10/25/2015 Ears/Nose/Throat/Neck dizziness 10/25/2015 Ears/Nose/Throat/Neck No nasal discharge 10/25/2015 Cardiovascular chest pain/pressure 10/25/2015 Cardiovascular dyspnea 10/25/2015 Cardiovascular No edema 10/25/2015 Cardiovascular near-syncope/dizziness 10/25/2015 Respiratory dyspnea on exertion 10/25/2015 Respiratory dyspnea 10/25/2015 Gastrointestinal No abdominal pain 10/25/2015 Gastrointestinal No constipation 10/25/2015 Genitourinary/Nephrology No dysuria 10/25/2015 Neurologic dizziness 10/25/2015 Psychiatric anxiety 10/25/2015 Eyes No eye discharge 10/19/2015 Eyes No eye erythema 10/19/2015 Ears/Nose/Throat/Neck No nasal discharge 10/19/2015 Cardiovascular chest pain/pressure 10/19/2015 Gastrointestinal No constipation 10/19/2015 Gastrointestinal diarrhea 10/19/2015 Genitourinary/Nephrology No dysuria 10/19/2015 Psychiatric anxiety 10/19/2015 Constitutional fatigue 10/19/2015 Constitutional malaise 10/19/2015 Eyes No eye erythema 10/19/2015 Ears/Nose/Throat/Neck dizziness 10/19/2015 Cardiovascular dyspnea 10/19/2015 Cardiovascular No edema 10/19/2015 Cardiovascular near-syncope/dizziness 10/19/2015 Respiratory dyspnea 10/19/2015 Respiratory dyspnea on exertion 10/19/2015 Gastrointestinal No abdominal pain 10/19/2015 Neurologic dizziness 10/19/2015 Constitutional No recent illness 06/22/2015 Constitutional No fever 06/22/2015 Eyes No eye discharge 06/22/2015 Eyes No eye erythema 06/22/2015 Ears/Nose/Throat/Neck No nasal discharge 06/22/2015 Ears/Nose/Throat/Neck No sore throat 06/22/2015 Ears/Nose/Throat/Neck No sinus congestion 06/22/2015 Cardiovascular No chest pain/pressure 06/22/2015 Respiratory No chest congestion 06/22/2015 Respiratory No chest tightness 06/22/2015 Gastrointestinal No abdominal pain 06/22/2015 Gastrointestinal No constipation 06/22/2015 Gastrointestinal No diarrhea 06/22/2015 Gastrointestinal No nausea 06/22/2015 Gastrointestinal No vomiting 06/22/2015 Genitourinary/Nephrology No dysuria 06/22/2015 Musculoskeletal No stiffness 06/22/2015 Musculoskeletal No swelling 06/22/2015 Musculoskeletal No muscle weakness 06/22/2015 Musculoskeletal No myalgias 06/22/2015 Dermatologic No rash 06/22/2015 Psychiatric No anxiety 06/22/2015 Psychiatric No depression 06/22/2015 Neurologic No dizziness 06/22/2015 Neurologic No headache 06/22/2015 Neurologic No neck pain 06/22/2015 Neurologic No syncope 06/22/2015 Constitutional No recent illness 12/22/2014 Constitutional No fever 12/22/2014 Eyes No eye discharge 12/22/2014 Eyes No eye erythema 12/22/2014 Ears/Nose/Throat/Neck No nasal discharge 12/22/2014 Ears/Nose/Throat/Neck No sore throat 12/22/2014 Ears/Nose/Throat/Neck No sinus congestion 12/22/2014 Cardiovascular No chest pain/pressure 12/22/2014 Respiratory No chest congestion 12/22/2014 Respiratory No chest tightness 12/22/2014 Gastrointestinal No abdominal pain 12/22/2014 Gastrointestinal No constipation 12/22/2014 Gastrointestinal No diarrhea 12/22/2014 Gastrointestinal No nausea 12/22/2014 Gastrointestinal No vomiting 12/22/2014 Genitourinary/Nephrology No dysuria 12/22/2014 Dermatologic No rash 12/22/2014 Psychiatric No anxiety 12/22/2014 Psychiatric No depression 12/22/2014 Musculoskeletal No stiffness 12/22/2014 Musculoskeletal No swelling 12/22/2014 Musculoskeletal No muscle weakness 12/22/2014 Musculoskeletal No myalgias 12/22/2014 Constitutional recent illness 08/17/2014 Constitutional No chills 08/17/2014 Constitutional No diaphoresis 08/17/2014 Constitutional No fever 08/17/2014 Ears/Nose/Throat/Neck facial pain 08/17/2014 Ears/Nose/Throat/Neck nasal discharge 08/17/2014 Ears/Nose/Throat/Neck postnasal drip 08/17/2014 Ears/Nose/Throat/Neck sinus congestion 08/17/2014 Cardiovascular dyspnea 08/17/2014 Cardiovascular No edema 08/17/2014 Respiratory cough 08/17/2014 Respiratory chest congestion 08/17/2014 Respiratory productive sputum 08/17/2014 Respiratory dyspnea on exertion 08/17/2014 Gastrointestinal No nausea 08/17/2014 Gastrointestinal No vomiting 08/17/2014 Gastrointestinal No constipation 08/17/2014 Gastrointestinal No diarrhea 08/17/2014 Respiratory wheezing 08/17/2014 Eyes No eye discharge 08/17/2014 Eyes No eye erythema 08/17/2014 Ears/Nose/Throat/Neck No sore throat 08/17/2014 Cardiovascular No chest pain/pressure 08/17/2014 Respiratory chest tightness 08/17/2014 Gastrointestinal No abdominal pain 08/17/2014 Genitourinary/Nephrology No dysuria 08/17/2014 Dermatologic No rash 08/17/2014 Psychiatric No anxiety 08/17/2014 Psychiatric No depression 08/17/2014 Constitutional recent illness 04/13/2014 Constitutional No fever 04/13/2014 Eyes No eye discharge 04/13/2014 Eyes No eye erythema 04/13/2014 Ears/Nose/Throat/Neck nasal discharge 04/13/2014 Ears/Nose/Throat/Neck No sore throat 04/13/2014 Ears/Nose/Throat/Neck sinus congestion 04/13/2014 Cardiovascular No chest pain/pressure 04/13/2014 Respiratory chest congestion 04/13/2014 Respiratory No chest tightness 04/13/2014 Gastrointestinal No abdominal pain 04/13/2014 Gastrointestinal No constipation 04/13/2014 Gastrointestinal No diarrhea 04/13/2014 Gastrointestinal No nausea 04/13/2014 Gastrointestinal No vomiting 04/13/2014 Genitourinary/Nephrology No dysuria 04/13/2014 Dermatologic No rash 04/13/2014 Psychiatric No anxiety 04/13/2014 Psychiatric No depression 04/13/2014 Ears/Nose/Throat/Neck postnasal drip 04/13/2014 Respiratory productive sputum 04/13/2014 Constitutional No recent illness 12/11/2013 Constitutional No fever 12/11/2013 Eyes No eye discharge 12/11/2013 Eyes No eye erythema 12/11/2013 Ears/Nose/Throat/Neck No nasal discharge 12/11/2013 Ears/Nose/Throat/Neck No sore throat 12/11/2013 Ears/Nose/Throat/Neck No sinus congestion 12/11/2013 Cardiovascular No chest pain/pressure 12/11/2013 Respiratory No chest congestion 12/11/2013 Respiratory No chest tightness 12/11/2013 Gastrointestinal No abdominal pain 12/11/2013 Gastrointestinal No constipation 12/11/2013 Gastrointestinal No diarrhea 12/11/2013 Gastrointestinal No nausea 12/11/2013 Gastrointestinal No vomiting 12/11/2013 Genitourinary/Nephrology No dysuria 12/11/2013 Dermatologic No rash 12/11/2013 Psychiatric No anxiety 12/11/2013 Psychiatric No depression 12/11/2013 Constitutional No recent illness 11/10/2013 Constitutional No fever 11/10/2013 Eyes No eye discharge 11/10/2013 Eyes No eye erythema 11/10/2013 Ears/Nose/Throat/Neck No nasal discharge 11/10/2013 Ears/Nose/Throat/Neck No sore throat 11/10/2013 Ears/Nose/Throat/Neck No sinus congestion 11/10/2013 Cardiovascular No chest pain/pressure 11/10/2013 Respiratory No chest congestion 11/10/2013 Respiratory No chest tightness 11/10/2013 Gastrointestinal No abdominal pain 11/10/2013 Gastrointestinal No constipation 11/10/2013 Gastrointestinal No diarrhea 11/10/2013 Gastrointestinal No nausea 11/10/2013 Gastrointestinal No vomiting 11/10/2013 Genitourinary/Nephrology No dysuria 11/10/2013 Dermatologic No rash 11/10/2013 Psychiatric No anxiety 11/10/2013 Psychiatric No depression 11/10/2013 Constitutional recent illness 08/11/2013 Constitutional No fever 08/11/2013 Eyes No eye discharge 08/11/2013 Eyes No eye erythema 08/11/2013 Ears/Nose/Throat/Neck No nasal discharge 08/11/2013 Ears/Nose/Throat/Neck No sore throat 08/11/2013 Ears/Nose/Throat/Neck No sinus congestion 08/11/2013 Cardiovascular No chest pain/pressure 08/11/2013 Respiratory chest congestion 08/11/2013 Respiratory chest tightness 08/11/2013 Gastrointestinal No abdominal pain 08/11/2013 Gastrointestinal No constipation 08/11/2013 Gastrointestinal No diarrhea 08/11/2013 Gastrointestinal No nausea 08/11/2013 Gastrointestinal No vomiting 08/11/2013 Genitourinary/Nephrology No dysuria 08/11/2013 Dermatologic No rash 08/11/2013 Respiratory cough 08/11/2013 Constitutional No recent illness 05/12/2013 Constitutional No fever 05/12/2013 Eyes No eye discharge 05/12/2013 Eyes No eye erythema 05/12/2013 Ears/Nose/Throat/Neck No nasal discharge 05/12/2013 Ears/Nose/Throat/Neck No sore throat 05/12/2013 Ears/Nose/Throat/Neck No sinus congestion 05/12/2013 Cardiovascular No chest pain/pressure 05/12/2013 Respiratory No chest congestion 05/12/2013 Respiratory No chest tightness 05/12/2013 Gastrointestinal No abdominal pain 05/12/2013 Gastrointestinal No constipation 05/12/2013 Gastrointestinal No diarrhea 05/12/2013 Gastrointestinal No nausea 05/12/2013 Gastrointestinal No vomiting 05/12/2013 Genitourinary/Nephrology No dysuria 05/12/2013 Dermatologic No rash 05/12/2013 Constitutional No recent illness 01/06/2013 Constitutional No fever 01/06/2013 Eyes No eye discharge 01/06/2013 Eyes No eye erythema 01/06/2013 Ears/Nose/Throat/Neck No nasal discharge 01/06/2013 Ears/Nose/Throat/Neck No sore throat 01/06/2013 Ears/Nose/Throat/Neck No sinus congestion 01/06/2013 Cardiovascular No chest pain/pressure 01/06/2013 Respiratory No chest congestion 01/06/2013 Respiratory No chest tightness 01/06/2013 Gastrointestinal No abdominal pain 01/06/2013 Gastrointestinal No constipation 01/06/2013 Gastrointestinal No diarrhea 01/06/2013 Gastrointestinal No nausea 01/06/2013 Gastrointestinal No vomiting 01/06/2013 Genitourinary/Nephrology No dysuria 01/06/2013 Dermatologic No rash 01/06/2013 Constitutional No recent illness 10/07/2012 Constitutional No fever 10/07/2012 Eyes No eye discharge 10/07/2012 Eyes No eye erythema 10/07/2012 Ears/Nose/Throat/Neck No nasal discharge 10/07/2012 Ears/Nose/Throat/Neck No sinus congestion 10/07/2012 Ears/Nose/Throat/Neck No sore throat 10/07/2012 Cardiovascular No chest pain/pressure 10/07/2012 Respiratory No chest congestion 10/07/2012 Respiratory No chest tightness 10/07/2012 Gastrointestinal No abdominal pain 10/07/2012 Gastrointestinal No constipation 10/07/2012 Gastrointestinal No diarrhea 10/07/2012 Gastrointestinal No nausea 10/07/2012 Gastrointestinal No vomiting 10/07/2012 Genitourinary/Nephrology No dysuria 10/07/2012 Dermatologic No rash 10/07/2012 Constitutional No chills 09/11/2012 Constitutional fatigue 09/11/2012 Constitutional No fever 09/11/2012 Constitutional No insomnia 09/11/2012 Eyes No blindness 09/11/2012 Eyes No vision change 09/11/2012 Ears/Nose/Throat/Neck No dizziness 09/11/2012 Dermatologic No rash 09/11/2012 Dermatologic No sores 09/11/2012 Dermatologic No scar 09/11/2012 Psychiatric No anxiety 09/11/2012 Psychiatric No depression 09/11/2012 Ears/Nose/Throat/Neck No dysphagia 09/11/2012 Ears/Nose/Throat/Neck No headache 09/11/2012 Ears/Nose/Throat/Neck No hearing loss 09/11/2012 Ears/Nose/Throat/Neck No hoarseness 09/11/2012 Ears/Nose/Throat/Neck nasal allergies 09/11/2012 Ears/Nose/Throat/Neck nasal discharge 09/11/2012 Ears/Nose/Throat/Neck No sore throat 09/11/2012 Ears/Nose/Throat/Neck No postnasal drip 09/11/2012 Ears/Nose/Throat/Neck No sinus congestion 09/11/2012 Respiratory No chest tightness 09/11/2012 Respiratory No cigarette smoking 09/11/2012 Respiratory No cough 09/11/2012 Respiratory No dyspnea 09/11/2012 Respiratory No pedal edema 09/11/2012 Respiratory No snoring 09/11/2012 Respiratory No wheezing 09/11/2012 Gastrointestinal No abdominal pain 09/11/2012 Gastrointestinal No constipation 09/11/2012 Gastrointestinal No diarrhea 09/11/2012 Gastrointestinal gastroesophageal reflux 09/11/2012 Musculoskeletal No stiffness 09/11/2012 Musculoskeletal No swelling 09/11/2012 Musculoskeletal No muscle weakness 09/11/2012 Musculoskeletal No myalgias 09/11/2012 Constitutional recent illness 07/15/2012 Constitutional No chills 07/15/2012 Constitutional fatigue 07/15/2012 Constitutional No fever 07/15/2012 Constitutional No insomnia 07/15/2012 Constitutional malaise 07/15/2012 Eyes No blindness 07/15/2012 Eyes No vision change 07/15/2012 Respiratory No chest tightness 07/15/2012 Respiratory No cigarette smoking 07/15/2012 Respiratory No cough 07/15/2012 Respiratory No dyspnea 07/15/2012 Respiratory No pedal edema 07/15/2012 Respiratory No snoring 07/15/2012 Respiratory No wheezing 07/15/2012 Gastrointestinal No abdominal pain 07/15/2012 Gastrointestinal No constipation 07/15/2012 Gastrointestinal No diarrhea 07/15/2012 Gastrointestinal gastroesophageal reflux 07/15/2012 Musculoskeletal No stiffness 07/15/2012 Musculoskeletal No swelling 07/15/2012 Musculoskeletal No muscle weakness 07/15/2012 Musculoskeletal No myalgias 07/15/2012 Psychiatric No anxiety 07/15/2012 Psychiatric No depression 07/15/2012 Dermatologic No rash 07/15/2012 Dermatologic No scar 07/15/2012 Dermatologic No sores 07/15/2012 Ears/Nose/Throat/Neck No dizziness 07/15/2012 Ears/Nose/Throat/Neck No dysphagia 07/15/2012 Ears/Nose/Throat/Neck No headache 07/15/2012 Ears/Nose/Throat/Neck No hearing loss 07/15/2012 Ears/Nose/Throat/Neck nasal allergies 07/15/2012 Ears/Nose/Throat/Neck No sore throat 07/15/2012 Ears/Nose/Throat/Neck No postnasal drip 07/15/2012 Ears/Nose/Throat/Neck No sinus congestion 07/15/2012 Ears/Nose/Throat/Neck nasal discharge 07/15/2012 Ears/Nose/Throat/Neck No hoarseness 07/15/2012 Constitutional No recent illness 05/02/2012 Constitutional No chills 05/02/2012 Constitutional No fatigue 05/02/2012 Constitutional No fever 05/02/2012 Eyes No eye discharge 05/02/2012 Eyes No eye erythema 05/02/2012 Ears/Nose/Throat/Neck No nasal discharge 05/02/2012 Ears/Nose/Throat/Neck No sore throat 05/02/2012 Ears/Nose/Throat/Neck No sinus congestion 05/02/2012 Respiratory asthma 05/02/2012 Respiratory No chest congestion 05/02/2012 Respiratory No chest tightness 05/02/2012 Gastrointestinal gastroesophageal reflux 05/02/2012 Gastrointestinal No nausea 05/02/2012 Gastrointestinal No vomiting 05/02/2012 Genitourinary/Nephrology No dysuria 05/02/2012 Musculoskeletal No stiffness 05/02/2012 Musculoskeletal No arthralgia(s) 05/02/2012 Neurologic No ataxia 05/02/2012 Neurologic No dizziness 05/02/2012 Neurologic No headache 05/02/2012 Psychiatric No anxiety 05/02/2012 Psychiatric No depression 05/02/2012 Constitutional No recent illness 03/28/2012 Constitutional No chills 03/28/2012 Constitutional No fatigue 03/28/2012 Constitutional No fever 03/28/2012 Eyes No eye discharge 03/28/2012 Eyes No eye erythema 03/28/2012 Ears/Nose/Throat/Neck No nasal discharge 03/28/2012 Ears/Nose/Throat/Neck No sinus congestion 03/28/2012 Ears/Nose/Throat/Neck No sore throat 03/28/2012 Respiratory asthma 03/28/2012 Respiratory No chest congestion 03/28/2012 Respiratory No chest tightness 03/28/2012 Gastrointestinal gastroesophageal reflux 03/28/2012 Gastrointestinal No nausea 03/28/2012 Gastrointestinal No vomiting 03/28/2012 Genitourinary/Nephrology No dysuria 03/28/2012 Neurologic No ataxia 03/28/2012 Neurologic No dizziness 03/28/2012 Neurologic No headache 03/28/2012 Psychiatric No anxiety 03/28/2012 Psychiatric No depression 03/28/2012 Musculoskeletal No arthralgia(s) 03/28/2012 Musculoskeletal No stiffness 03/28/2012 Constitutional No recent illness 11/27/2011 Constitutional No fever 11/27/2011 Eyes No eye discharge 11/27/2011 Eyes No eye erythema 11/27/2011 Ears/Nose/Throat/Neck No nasal discharge 11/27/2011 Ears/Nose/Throat/Neck No sinus congestion 11/27/2011 Ears/Nose/Throat/Neck No sore throat 11/27/2011 Respiratory No chest congestion 11/27/2011 Respiratory No chest tightness 11/27/2011 Gastrointestinal No nausea 11/27/2011 Gastrointestinal No vomiting 11/27/2011 Genitourinary/Nephrology No dysuria 11/27/2011 Constitutional No chills 11/27/2011 Constitutional No fatigue 11/27/2011 Respiratory asthma 11/27/2011 Neurologic No ataxia 11/27/2011 Neurologic No dizziness 11/27/2011 Neurologic No headache 11/27/2011 Psychiatric No anxiety 11/27/2011 Psychiatric No depression 11/27/2011 Gastrointestinal gastroesophageal reflux 11/27/2011 Constitutional No chills 10/25/2011 Constitutional No fatigue 10/25/2011 Constitutional No fever 10/25/2011 Cardiovascular No chest pain/pressure 10/25/2011 Cardiovascular No palpitations 10/25/2011 Respiratory asthma 10/25/2011 Gastrointestinal No constipation 10/25/2011 Gastrointestinal No diarrhea 10/25/2011 Gastrointestinal No nausea 10/25/2011 Gastrointestinal No vomiting 10/25/2011 Musculoskeletal No stiffness 10/25/2011 Musculoskeletal No arthralgia(s) 10/25/2011 Neurologic No ataxia 10/25/2011 Neurologic No dizziness 10/25/2011 Neurologic No headache 10/25/2011 Psychiatric No anxiety 10/25/2011 Psychiatric No depression 10/25/2011 Constitutional No recent illness 10/11/2011 Constitutional No fever 10/11/2011 Cardiovascular No chest pain/pressure 10/11/2011 Cardiovascular No dyspnea 10/11/2011 Cardiovascular fatigue 10/11/2011 Respiratory No chest congestion 10/11/2011 Respiratory No chest tightness 10/11/2011 Gastrointestinal abdominal pain 10/11/2011 Gastrointestinal No constipation 10/11/2011 Gastrointestinal No diarrhea 10/11/2011 Gastrointestinal gas and bloating 10/11/2011 Gastrointestinal gastroesophageal reflux 10/11/2011 Gastrointestinal hematochezia 10/11/2011 Dermatologic No rash 10/11/2011 Psychiatric No anxiety 10/11/2011 Constitutional No recent illness 10/04/2011 Constitutional No fever 10/04/2011 Eyes No eye discharge 10/04/2011 Eyes No eye erythema 10/04/2011 Ears/Nose/Throat/Neck No nasal discharge 10/04/2011 Ears/Nose/Throat/Neck No sinus congestion 10/04/2011 Ears/Nose/Throat/Neck No sore throat 10/04/2011 Cardiovascular No chest pain/pressure 10/04/2011 Respiratory No chest congestion 10/04/2011 Respiratory No chest tightness 10/04/2011 Genitourinary/Nephrology No dysuria 10/04/2011 Dermatologic No rash 10/04/2011 Cardiovascular No dyspnea 10/04/2011 Cardiovascular fatigue 10/04/2011 Psychiatric No anxiety 10/04/2011 Gastrointestinal abdominal pain 10/04/2011 Gastrointestinal No constipation 10/04/2011 Gastrointestinal No diarrhea 10/04/2011 Gastrointestinal gas and bloating 10/04/2011 Gastrointestinal gastroesophageal reflux 10/04/2011 Gastrointestinal hematochezia 10/04/2011 Constitutional No recent illness 09/25/2011 Constitutional No fever 09/25/2011 Eyes No eye discharge 09/25/2011 Eyes No eye erythema 09/25/2011 Ears/Nose/Throat/Neck No nasal discharge 09/25/2011 Ears/Nose/Throat/Neck No sinus congestion 09/25/2011 Ears/Nose/Throat/Neck No sore throat 09/25/2011 Cardiovascular No chest pain/pressure 09/25/2011 Respiratory No chest congestion 09/25/2011 Respiratory No chest tightness 09/25/2011 Gastrointestinal No abdominal pain 09/25/2011 Gastrointestinal No constipation 09/25/2011 Gastrointestinal No diarrhea 09/25/2011 Gastrointestinal No nausea 09/25/2011 Gastrointestinal No vomiting 09/25/2011 Genitourinary/Nephrology No dysuria 09/25/2011 Dermatologic No rash 09/25/2011 Gastrointestinal No constipation 07/31/2011 Gastrointestinal No diarrhea 07/31/2011 Gastrointestinal No nausea 07/31/2011 Gastrointestinal No vomiting 07/31/2011 Genitourinary/Nephrology No dysuria 07/31/2011 Dermatologic No rash 07/31/2011 Ears/Nose/Throat/Neck No nasal discharge 07/31/2011 Ears/Nose/Throat/Neck No sinus congestion 07/31/2011 Constitutional No recent illness 07/31/2011 Constitutional No fever 07/31/2011 Eyes No eye discharge 07/31/2011 Eyes No eye erythema 07/31/2011 Ears/Nose/Throat/Neck neck pain 07/31/2011 Ears/Nose/Throat/Neck No sore throat 07/31/2011 Cardiovascular No chest pain/pressure 07/31/2011 Respiratory No chest congestion 07/31/2011 Respiratory No chest tightness 07/31/2011 Gastrointestinal No abdominal pain 07/31/2011 Constitutional No fever 05/22/2011 Eyes No eye discharge 05/22/2011 Eyes No eye erythema 05/22/2011 Ears/Nose/Throat/Neck nasal discharge 05/22/2011 Ears/Nose/Throat/Neck sinus congestion 05/22/2011 Ears/Nose/Throat/Neck No sore throat 05/22/2011 Ears/Nose/Throat/Neck neck pain 05/22/2011 Cardiovascular No chest pain/pressure 05/22/2011 Respiratory No chest congestion 05/22/2011 Respiratory No chest tightness 05/22/2011 Gastrointestinal No nausea 05/22/2011 Gastrointestinal No vomiting 05/22/2011 Gastrointestinal No abdominal pain 05/22/2011 Gastrointestinal No constipation 05/22/2011 Gastrointestinal No diarrhea 05/22/2011 Genitourinary/Nephrology No dysuria 05/22/2011 Musculoskeletal No joint complaint 05/22/2011 Dermatologic No rash 05/22/2011 Constitutional No recent illness 05/22/2011 Constitutional No chills 05/05/2011 Constitutional No fever 05/05/2011 Constitutional No fatigue 05/05/2011 Cardiovascular No chest pain/pressure 05/05/2011 Cardiovascular No palpitations 05/05/2011 Respiratory asthma 05/05/2011 Gastrointestinal No constipation 05/05/2011 Gastrointestinal No diarrhea 05/05/2011 Gastrointestinal No nausea 05/05/2011 Gastrointestinal No vomiting 05/05/2011 Dermatologic No rash 05/05/2011 Dermatologic No sores 05/05/2011 Neurologic No ataxia 05/05/2011 Neurologic No dizziness 05/05/2011 Neurologic No headache 05/05/2011 Psychiatric No anxiety 05/05/2011 Psychiatric No depression 05/05/2011 Musculoskeletal No stiffness 05/05/2011 Musculoskeletal No arthralgia(s) 05/05/2011 Physical Exam Exam Name System Name Item [...] None Full Exam - General 1994 Eyes conjunctiva/eyelids Overall: conjunctiva clear 10/12/2016 None Full Exam - General 1994 Eyes conjunctiva/eyelids Overall: eyelids normal 10/12/2016 None Full Exam [...] 05/30/2016 None Full Exam - Orthopedics Eyes conjunctiva/eyelids Overall: conjunctiva clear 05/30/2016 None Full Exam - Orthopedics Eyes conjunctiva/eyelids Overall: eyelids normal 05/30/2016 None Full Exam [...] effort/rhythm Rate: tachypnea 10/25/2015 accessory muscle use --Improved Full Exam - General 1994 Cardiovascular extremities [...] developed 05/12/2013 None Full Exam - General 1994 Constitutional general appearance Overall: in no acute distress 05/12/2013 None Full Exam - General 1994 Constitutional general appearance Overall: well nourished 05/12/2013 None Full Exam - General 1994 Eyes pupils and irises Overall: pupils equal, round, reactive to light and accomodation 05/12/2013 None Full Exam - General 1995 Ears/Nose/Throat otoscopic exam Overall: external auditory canals clear 05/12/2013 None Full Exam - General 1995 Ears/Nose/Throat [...] 05/12/2013 None Full Exam - Cardiology Eyes conjunctiva/eyelids Overall: conjunctiva clear 01/06/2013 None Full Exam [...] Cardiology Neurologic cranial nerves Overall: cranial nerves 2-12 grossly intact 01/06/2013 None Full Exam - Cardiology Psychiatric orientation/consciousness Overall: oriented to person, place and time 01/06/2013 None Full Exam - Cardiology Constitutional general appearance Overall: well nourished 01/06/2013 None Full Exam - Cardiology Constitutional general appearance Overall: well developed 01/06/2013 None Full Exam - Cardiology Constitutional general appearance Overall: in no acute distress 01/06/2013 None Full Exam - Cardiology Eyes conjunctiva/eyelids Overall: conjunctiva clear 10/07/2012 None Full Exam [...] Cardiology Neurologic cranial nerves Overall: cranial nerves 2-12 grossly intact 10/07/2012 None Full Exam - [...] wheezes 10/07/2012 None Full Exam - General 1994 Ears/Nose/Throat otoscopic exam Overall: tympanic membranes clear 09/11/2012 None Full Exam - General 1994 Respiratory auscultation Overall: breath sounds clear bilaterally 09/11/2012 None Full Exam - General 1994 Respiratory respiratory effort/rhythm Overall: no retractions 09/11/2012 None Full Exam - General 1994 Respiratory respiratory effort/rhythm Overall: normal rate 09/11/2012 None Full Exam - General 1994 Cardiovascular [...] benign 09/11/2012 None Full Exam - General 1995 Neurologic gait Overall: no ataxia, no unsteadiness 09/11/2012 None Full Exam - General 1995 Psychiatric orientation/consciousness Overall: oriented to person, place and time 09/11/2012 None Full Exam - General 1995 Psychiatric mood and affect Overall: normal mood and affect 09/11/2012 None Full Exam - General 1995 Chest/Breast breast/chest inspection Overall: breasts to symmetric and without lesions 09/11/2012 None Full Exam - General 1995 Constitutional general appearance Overall: well developed 09/11/2012 None Full Exam - General 1995 Constitutional general appearance Overall: in no acute distress 09/11/2012 None Full Exam - General 1995 Constitutional general appearance Overall: well nourished 09/11/2012 None Full Exam - General 1995 Eyes pupils and irises Overall: pupils equal, round, reactive to light and accomodation 09/11/2012 None Full Exam - General 1995 Ears/Nose/Throat otoscopic exam Overall: external auditory canals clear 09/11/2012 None Full Exam - General 1995 Chest/Breast breast/chest inspection Skin appearance: thickened 09/11/2012 [...] developed 07/15/2012 None Full Exam - General 1995 [...] accomodation 05/02/2012 None Full Exam - General 1994 [...] 03/28/2012 None Full Exam - Cardiology Eyes conjunctiva/eyelids Overall: conjunctiva clear 11/27/2011 None Full Exam [...] Cardiology Neurologic cranial nerves Overall: cranial nerves 2-12 grossly intact 11/27/2011 None Full Exam - [...] tenderness 10/25/2011 None Full Exam - General 1995 Abdomen abdominal exam Overall: normal bowel sounds 10/25/2011 None Full Exam - General 1995 Musculoskeletal head and neck Overall: head atraumatic 10/25/2011 None Full Exam - General 1995 Musculoskeletal head and neck Overall: cervical spine benign 10/25/2011 None Full Exam - General 1995 Neurologic gait Overall: no ataxia, no unsteadiness 10/25/2011 None Full Exam - General 1995 Psychiatric orientation/consciousness Overall: oriented to person, place and time 10/25/2011 None Full Exam - General 1994 Psychiatric mood and affect Overall: normal mood and affect 10/25/2011 None Full Exam - General 1995 Constitutional general appearance Overall: well nourished 10/25/2011 None Full Exam - General 1995 Constitutional general appearance Overall: well developed 10/25/2011 None Full Exam - General 1994 Constitutional general appearance Overall: in no acute distress 10/25/2011 None Full Exam - General 1994 Eyes pupils and irises Overall: pupils equal, round, reactive to light and accomodation 10/25/2011 None Full Exam - General 1994 Ears/Nose/Throat otoscopic exam Overall: external auditory canals clear 10/25/2011 None Full Exam - General 1995 Constitutional general appearance Overall: well nourished 10/11/2011 None Full Exam - General 1995 Constitutional general appearance Overall: well developed 10/11/2011 [...] None Full Exam - General 1994 Eyes conjunctiva/eyelids Overall: conjunctiva clear 10/11/2011 None Full Exam - General 1994 Eyes conjunctiva/eyelids Overall: cornea clear 10/11/2011 None Full Exam - General 1995 Ears/Nose/Throat otoscopic exam Overall: tympanic membranes clear 10/11/2011 None Full Exam - General 1994 Ears/Nose/Throat otoscopic exam Overall: external auditory canals clear 10/11/2011 None Full Exam - General 1994 Ears/Nose/Throat oral cavity/pharynx/larynx Overall: oropharyngeal mucosa clear 10/11/2011 None Full Exam - General 1994 Ears/Nose/Throat oral cavity/pharynx/larynx Overall: no masses 10/11/2011 None Full Exam - General 1994 [...] 10/04/2011 None Full Exam - Cardiology Eyes conjunctiva/eyelids Overall: conjunctiva clear 10/04/2011 None Full Exam - Cardiology Musculoskeletal back Posture: lordosis 10/04/2011 None Full Exam - Cardiology Neurologic cranial nerves Overall: cranial nerves 2-12 grossly intact 10/04/2011 None Full Exam - [...] to palpation Full Exam - Cardiology Eyes conjunctiva/eyelids Overall: eyelids normal 10/04/2011 None Full Exam [...] 09/25/2011 None Full Exam - Cardiology Eyes conjunctiva/eyelids Overall: conjunctiva clear 09/25/2011 None Full Exam [...] Cardiology Neurologic cranial nerves Overall: cranial nerves 2-12 grossly intact 09/25/2011 None Full Exam - [...] Cardiology Neurologic cranial nerves Overall: cranial nerves 2-12 grossly intact 07/31/2011 None Full Exam - Cardiology Constitutional general appearance Overall: in no acute distress 07/31/2011 None Full Exam - Cardiology Eyes conjunctiva/eyelids Overall: conjunctiva clear 07/31/2011 None Full Exam [...] 05/22/2011 None Full Exam - Cardiology Eyes conjunctiva/eyelids Overall: conjunctiva clear 05/22/2011 None Full Exam [...] clear 05/05/2011 None Procedures Procedure Codes Date THER/PROPH/DIAG INJ SC/IM CPT-4: 90680Pfaypso 09/04/2016 TRIAMCINOLONE ACET INJ NOS CPT-4: C2970Rknuxze 09/04/2016 THER/PROPH/DIAG INJ SC/IM CPT-4: 38701Igveopm 11/11/2015 TRIAMCINOLONE ACET INJ NOS CPT-4: M5328Lwkjqaf 11/11/2015 TRIAMCINOLONE ACET INJ NOS CPT-4: Y3698Mjuaknp 10/25/2015 THER/PROPH/DIAG INJ SC/IM CPT-4: 93526Pkrljup 10/25/2015 THER/PROPH/DIAG INJ SC/IM CPT-4: 35853Smkhgdu 08/17/2014 TRIAMCINOLONE ACET INJ NOS CPT-4: S5699Pprlymw 08/17/2014 TRIAMCINOLONE ACET INJ NOS CPT-4: V1732Htnlayr 04/13/2014 THER/PROPH/DIAG INJ SC/IM CPT-4: 47567Jkpexxy 04/13/2014 ROUTINE VENIPUNCTURE CPT-4: 10400Ocblyfz 11/04/2013 ROUTINE VENIPUNCTURE CPT-4: 16327Mioryct 05/12/2013 ADMIN INFLUENZA VIRUS VAC CPT-4: T1744Patljqk 05/12/2013 FLULAVAL VACC, 3 YRS & >, IM CPT-4: N2121Ayeznkl 05/12/2013 TRIAMCINOLONE ACET INJ NOS CPT-4: K9692Dtwtydx 10/07/2012 THER/PROPH/DIAG INJ SC/IM CPT-4: 65173Ppagkef 10/07/2012 ROUTINE VENIPUNCTURE CPT-4: 03161Upvneah 08/27/2012 ROUTINE VENIPUNCTURE CPT-4: 92469Uvvhpoi 07/15/2012 ROUTINE VENIPUNCTURE CPT-4: 71166Qiyqwgf 03/26/2012 ADMIN INFLUENZA VIRUS VAC CPT-4: F8616Egaujbh 03/26/2012 FLULAVAL VACC, 3 YRS & >, IM CPT-4: D9333Bclxsud 03/26/2012 Pneumococcal Polysaccharide Vaccine, 23-Valent, Ad CPT-4: 14249Qfdnrnd 03/26/2012 ROUTINE VENIPUNCTURE CPT-4: 63670Lkhdokd 01/08/2012 ROUTINE VENIPUNCTURE CPT-4: 74580Jcmsffu 11/06/2011 ROUTINE VENIPUNCTURE CPT-4: 54566Nvhujcl 10/25/2011 ROUTINE VENIPUNCTURE CPT-4: 53199Gwtdfmz 10/16/2011 ROUTINE VENIPUNCTURE CPT-4: 87286Takqhrg 09/25/2011 INJ TRIGGER POINT 1/2 MUSCL CPT-4: 91362Nyttxfn 07/31/2011 TRIAMCINOLONE ACET INJ NOS CPT-4: F0334Nwnadqk 07/31/2011 PRESCRIP TRANSMIT VIA ERX SY CPT-4: N5832Qztukht 05/22/2011 ADMIN INFLUENZA VIRUS VAC CPT-4: G7569Mxofsfd 05/02/2011 FLULAVAL VACC, 3 YRS & >, IM CPT-4: I2427Ekkttxg 05/02/2011 ROUTINE VENIPUNCTURE CPT-4: 31232Infbpwn 05/02/2011 Vital Signs Date Vital 11/01/2016 Blood Pressure 1: 150/84 Code: 8480-6 BMI: 29.1 Code: 45652-5 Heart Rate 1: 71 bpm Height: 5'1" SpO2: 97% Weight: 154 lbs 10/18/2016 Blood Pressure 1: 156/98 Code: 8480-6 Heart Rate 1: 68 bpm Height: 5'1" SpO2: 98% Weight: 10/12/2016 Blood Pressure 1: 142/76 Code: 8480-6 BMI: 30.0 Code: 69182-7 Heart Rate 1: 76 bpm Height: 5'1" SpO2: 95% Weight: 159 lbs 09/04/2016 Blood Pressure 1: 120/70 Code: 8480-6 Blood Pressure 1: 148/84 Code: 8480-6 BMI: 30.0 Code: 78489-7 Heart Rate 1: 72 bpm Height: 5'1" SpO2: 94% Weight: 159 lbs 05/30/2016 Blood Pressure 1: 152/84 Code: 8480-6 BMI: 29.9 Code: 16568-1 Heart Rate 1: 76 bpm Height: 5'1" SpO2: 97% Weight: 158 lbs 8 oz 05/01/2016 Blood Pressure 1: 146/60 Code: 8480-6 BMI: 29.9 Code: 82675-8 Heart Rate 1: 72 bpm Height: 5'1" SpO2: 97% Weight: 158 lbs 02/29/2016 Blood Pressure 1: 152/82 Code: 8480-6 BMI: 30.4 Code: 68929-3 Heart Rate 1: 71 bpm Height: 5'1" SpO2: 96% Weight: 161 lbs 02/03/2016 Blood Pressure 1: 148/88 Code: 8480-6 BMI: 30.6 Code: 45347-7 Heart Rate 1: 72 bpm Height: 5'1" SpO2: 98% Weight: 162 lbs 12/21/2015 Blood Pressure 1: 180/78 Code: 8480-6 BMI: 30.9 Code: 86788-3 Heart Rate 1: 64 bpm Height: 5'1" SpO2: 97% Weight: 163 lbs 8 oz 10/25/2015 Blood Pressure 1: 150/78 Code: 8480-6 BMI: 31.0 Code: 58735-3 Heart Rate 1: 73 bpm Height: 5'1" SpO2: 98% Weight: 164 lbs 10/19/2015 Blood Pressure 1: 122/72 Code: 8480-6 BMI: 31.6 Code: 90299-0 Heart Rate 1: 88 bpm Height: 5'1" SpO2: 98% Weight: 167 lbs 06/22/2015 Blood Pressure 1: 150/82 Code: 8480-6 BMI: 31.4 Code: 02011-3 Heart Rate 1: 86 bpm Height: 5'1" SpO2: 96% Weight: 166 lbs 12/22/2014 Blood Pressure 1: 160/92 Code: 8480-6 BMI: 31.2 Code: 26841-1 Heart Rate 1: 85 bpm Height: 5'1" SpO2: 97% Weight: 165 lbs 08/17/2014 Blood Pressure 1: 138/80 Code: 8480-6 BMI: 31.6 Code: 59263-8 Heart Rate 1: 77 bpm Height: 5'1" SpO2: 97% Weight: 167 lbs 04/13/2014 Blood Pressure 1: 144/88 Code: 8480-6 BMI: 31.6 Code: 83374-2 Heart Rate 1: 90 bpm Height: 5'1" Weight: 167 lbs 12/11/2013 Blood Pressure 1: 168/90 Code: 8480-6 BMI: 32.3 Code: 47359-8 Heart Rate 1: 72 bpm Height: 5'1" Weight: 171 lbs 11/10/2013 Blood Pressure 1: 150/80 Code: 8480-6 BMI: 32.3 Code: 69122-7 Heart Rate 1: 76 bpm Height: 5'1" Weight: 171 lbs 08/11/2013 Blood Pressure 1: 152/80 Code: 8480-6 BMI: 32.5 Code: 87460-6 Heart Rate 1: 92 bpm Height: 5'1" Temperature: 36.7 (C) / 98.0 (F) Weight: 172 lbs 05/12/2013 Blood Pressure 1: 142/102 Code: 8480-6 Blood Pressure 2: 144/98 Code: 8480-6 BMI: 34.2 Code: 55611-4 Heart Rate 1: 80 bpm Height: 5'1" Weight: 181 lbs 01/06/2013 Blood Pressure 1: 138/76 Code: 8480-6 BMI: 34.6 Code: 30645-4 Heart Rate 1: 64 bpm Height: 5'1" Weight: 183 lbs 10/07/2012 Blood Pressure 1: 146/76 Code: 8480-6 BMI: 35.6 Code: 30381-4 Heart Rate 1: 76 bpm Height: 5'1" Respiratory Rate: 20 bpm Weight: 188 lbs 8 oz 09/11/2012 Blood Pressure 1: 158/92 Code: 8480-6 BMI: 35.7 Code: 08377-8 Heart Rate 1: 76 bpm Height: 5'1" Weight: 189 lbs 07/15/2012 Blood Pressure 1: 158/100 Code: 8480-6 BMI: 36.3 Code: 66968-3 Heart Rate 1: 72 bpm Height: 5'1" Respiratory Rate: 20 bpm Weight: 192 lbs 05/02/2012 Blood Pressure 1: 156/80 Code: 8480-6 BMI: 35.9 Code: 32180-2 Heart Rate 1: 72 bpm Height: 5'1" Weight: 190 lbs 03/28/2012 Blood Pressure 1: 133/88 Code: 8480-6 Heart Rate 1: 78 bpm Weight: 189 lbs 11/27/2011 Blood Pressure 1: 178/80 Code: 8480-6 BMI: 36.7 Code: 49003-1 Heart Rate 1: 72 bpm Height: 5'1" Respiratory Rate: 20 bpm Weight: 194 lbs 10/25/2011 Blood Pressure 1: 122/62 Code: 8480-6 BMI: 37.0 Code: 86195-1 Heart Rate 1: 80 bpm Height: 5'1" Respiratory Rate: 16 bpm Weight: 196 lbs 10/16/2011 Blood Pressure 1: 136/70 Code: 8480-6 Heart Rate 1: 76 bpm 10/11/2011 Blood Pressure 1: 132/60 Code: 8480-6 Heart Rate 1: 84 bpm Respiratory Rate: 20 bpm Weight: 194 lbs 10/04/2011 Blood Pressure 1: 152/90 Code: 8480-6 Heart Rate 1: 88 bpm Respiratory Rate: 20 bpm Weight: 193 lbs 09/25/2011 Blood Pressure 1: 146/78 Code: 8480-6 Heart Rate 1: 80 bpm Weight: 194 lbs 07/31/2011 Blood Pressure 1: 128/78 Code: 8480-6 Blood Pressure 2: / Code: 8480-6 BMI: 37.1 Code: 60722-4 Heart Rate 1: 72 bpm Height: 5'1" Respiratory Rate: 16 bpm SpO2: % Temperature: .0 (C) / 32.0 (F) Weight: 196 lbs 8 oz 05/22/2011 Blood Pressure 1: 147/71 Code: 8480-6 BMI: 18.7 Code: 66078-8 Heart Rate 1: 77 bpm Height: 7'1" Weight: 192 lbs 05/05/2011 Blood Pressure 1: 178/88 Code: 8480-6 BMI: 37.4 Code: 27092-4 Heart Rate 1: 80 bpm Height: 5' Respiratory Rate: 16 bpm Weight: 193 lbs Functional Status No Functional Status data History of Present Illness Symptom Name Status Result Effective Date Notes Hospital Follow Up _ Other: acute dyspnea and acute abdominal pain 11/01/2016 None Hospital Follow Up Quality acute 11/01/2016 None Hospital Follow Up Quality improving 11/01/2016 None Hospital Follow Up Onset of Symptom 2 weeks ago 11/01/2016 None Hospital Follow Up Severity moderate 11/01/2016 None cough Quality acute 10/18/2016 None dyspnea Quality breathlessness 10/18/2016 None dyspnea [...] the lung 10/12/2016 None cough Quality acute 10/12/2016 None cough Pertinent Findings Denies fever 10/12/2016 [...] minimal exercise 09/04/2016 None edema Quality acute 05/30/2016 None edema Quality painful 05/30/2016 None edema [...] blood glucose at home, see scanned readings 05/01/2016 None mole check Location-Major on the chest [...] blood glucose at home, see scanned readings 12/11/2013 None hypertension Pertinent Findings dizziness 12/11/2013 None [...] blood glucose at home, see scanned readings 11/10/2013 None diabetes mellitus Pertinent Findings nausea 11/10/2013 [...] blood glucose at home, see scanned readings 08/11/2013 None hypertension Quality chronic 08/11/2013 None hypertension [...] blood glucose at home, see scanned readings 01/06/2013 None diabetes mellitus Nutrition ADA diet 01/06/2013 [...] checking blood pressure - see scanned document 05/02/2012 None blood pressure followup Pertinent Findings [...] blood glucose at home, see scanned readings 05/02/2012 None diabetes mellitus Blood glucose levels between [...] had been having a lot of muscle cramps- were really bad in her neck.. Since [...] Present Encounters Encounter Performer Location Codes Date ([id number]) 15238 EST. 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 PATIENT, LEVEL III Diagnosis: Mild intermittent asthma with (acute) exacerbation[ICD10: J45.21] Diagnosis: Gastro-esophageal reflux disease without esophagitis[ICD10: K21.9] Jayne Elaine MD [facility] CPT-4: 61011 10/12/2016 ([id number]) 77270 EST. PATIENT, LEVEL IV Diagnosis: Type 2 diabetes mellitus with hyperglycemia[ICD10: E11.65] Diagnosis: Essential (primary) hypertension[ICD10: I10] Diagnosis: Mild intermittent asthma with (acute) exacerbation[ICD10: J45.21] Clarice Elaine MD [facility] CPT-4: 91702 09/04/2016 94138 EST. PATIENT, LEVEL III Diagnosis: Pain in left ankle and joints of left foot[ICD10: M25.572] Diagnosis: Localized edema[ICD10: R60.0] Jayne Elaine MD [facility] CPT-4: 70736 05/30/2016 ([id number]) 67252 EST. PATIENT, LEVEL III Diagnosis: Type 2 diabetes mellitus with hyperglycemia[ICD10: E11.65] Clarice Elaine MD [facility] CPT-4: 84503 05/01/2016 ([id number]) 24306 EST. PATIENT, LEVEL IV Diagnosis: Type 2 diabetes mellitus without complications[ICD10: E11.9] Diagnosis: Moderate persistent asthma, uncomplicated[ICD10: J45.40] Diagnosis: Paroxysmal atrial fibrillation[ICD10: I48.0] Clarice Elaine MD [facility] CPT-4: 11579 02/29/2016 ([id number]) 30279 EST. PATIENT, LEVEL IV Diagnosis: Paroxysmal atrial fibrillation[ICD10: I48.0] Diagnosis: Hypothyroidism, unspecified[ICD10: E03.9] Diagnosis: Type 2 diabetes mellitus without complications[ICD10: E11.9] Diagnosis: Essential (primary) hypertension[ICD10: I10] Diagnosis: Acute maxillary sinusitis, unspecified[ICD10: J01.00] Diagnosis: Moderate persistent asthma, uncomplicated[ICD10: J45.40] Clarice Elaine MD [facility] CPT-4: 54782 02/03/2016 ([id number]) 21924 EST. PATIENT, LEVEL IV Diagnosis: Type 2 diabetes mellitus without complications[ICD10: E11.9] Diagnosis: Hypothyroidism, unspecified[ICD10: E03.9] Diagnosis: Moderate persistent asthma, uncomplicated[ICD10: J45.40] Diagnosis: Essential (primary) hypertension[ICD10: I10] Clarice Elaine MD [facility] CPT-4: 58145 12/21/2015 ([id number]) 34929 EST. 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 PATIENT, LEVEL IV Diagnosis: Type 2 diabetes mellitus without complications[ICD10: E11.9] Diagnosis: Essential (primary) hypertension[ICD10: I10] Diagnosis: Hypothyroidism, unspecified[ICD10: E03.9] Clarice Elaine MD [facility] CPT-4: 82544 06/22/2015 ([id number]) 52992 EST. PATIENT, LEVEL IV Diagnosis: ESSENTIAL HYPERTENSION[ICD9: 401.9] Diagnosis: DIABETES TYPE II[ICD9: 250.00] Clarice Elaine MD, [facility] CPT-4: 59891 12/22/2014 ([id number]) 81846 EST. PATIENT, LEVEL IV Diagnosis: ACUTE BRONCHITIS[ICD9: 466.0] Diagnosis: Acute asthma exacerbation[ICD9: 493.92] Diagnosis: ESSENTIAL HYPERTENSION[ICD9: 401.9] Diagnosis: DIABETES TYPE II[ICD9: 250.00] Clarice Elaine MD [facility] CPT-4: 18472 08/17/2014 ([id number]) 13258 EST. PATIENT, LEVEL IV Diagnosis: DIABETES TYPE II[ICD9: 250.00] Diagnosis: ESSENTIAL HYPERTENSION[ICD9: 401.9] Diagnosis: Acute asthma exacerbation[ICD9: 493.92] Clarice Elaine MD [facility] CPT-4: 40614 04/13/2014 ([id number]) 56124 EST. PATIENT, LEVEL IV Diagnosis: DIABETES TYPE II[ICD9: 250.00] Diagnosis: ESSENTIAL HYPERTENSION[ICD9: 401.9] Diagnosis: HYPOTHYROIDISM[ICD9: 244.9] Clarice Elaine MD [facility] CPT-4: 65471 12/11/2013 ([id number]) 64057 EST. PATIENT, LEVEL IV Diagnosis: DM W/O COMPLICATION TYPE II, UNCONTROLLED[ICD9: 250.02] Diagnosis: ESSENTIAL HYPERTENSION[ICD9: 401.9] Clarice Elaine MD [facility] CPT- 4: 26352 11/10/2013 ([id number]) 24258 EST. PATIENT, LEVEL IV Diagnosis: DM W/O COMPLICATION TYPE II, UNCONTROLLED[SNOMED: 42513617] Diagnosis: ESSENTIAL HYPERTENSION[SNOMED: 44436605] Diagnosis: ACUTE BRONCHITIS[ICD9: 466.0] Clarice Elaine MD [facility] CPT-4: 60682 08/11/2013 ([id number]) 56194 EST. PATIENT, LEVEL IV Diagnosis: DM W/O COMPLICATION TYPE II, UNCONTROLLED[SNOMED: 45337540] Diagnosis: ATRIAL FIBRILLATION[ICD9: 427.31] Diagnosis: ESSENTIAL HYPERTENSION[SNOMED: 58835624] Clarice Elaine MD [facility] CPT-4: 03833 05/12/2013 ([id number]) 00350 EST. PATIENT, LEVEL IV Diagnosis: DM W/O COMPLICATION TYPE II, UNCONTROLLED[SNOMED: 69410638] Diagnosis: ESSENTIAL HYPERTENSION[SNOMED: 38968711] Clarice Elaine MD [facility] CPT-4: 17052 01/06/2013 ([id number]) 38880 EST. PATIENT, LEVEL IV Diagnosis: DIABETES TYPE II[SNOMED: 132936450] Diagnosis: ESSENTIAL HYPERTENSION[SNOMED: 56125522] Diagnosis: Acute asthma exacerbation[ICD9: 493.92] Diagnosis: Fatigue[ICD9: 780.79] Clarice Elaine MD [facility] CPT-4: 37140 10/07/2012 ([id number]) 52583 EST. PATIENT, LEVEL IV Diagnosis: DM W/O COMPLICATION TYPE II, UNCONTROLLED[SNOMED: 51993084] Diagnosis: Lump of breast, right[ICD9: 611.72] Diagnosis: Lump on neck[ICD9: 784.2] Clarice Elaine MD [facility] CPT-4: 47492 09/11/2012 ([id number]) 30149 EST. PATIENT, LEVEL IV Diagnosis: ESSENTIAL HYPERTENSION[SNOMED: 74159731] Diagnosis: Atrial fibrillation[ICD9: 427.31] Diagnosis: Fatigue[ICD9: 780.79] Diagnosis: Encounter for monitoring digoxin therapy[ICD9: V58.83] Clarice Elaine MD [facility] CPT-4: 38725 07/15/2012 ([id number]) 82532 EST. PATIENT, LEVEL IV Diagnosis: DIABETES TYPE II[SNOMED: 147374668] Diagnosis: ESSENTIAL HYPERTENSION[SNOMED: 52932436] Clarice Elaine MD [facility] CPT-4: 78647 05/02/2012 ([id number]) 88607 EST. PATIENT, LEVEL IV Diagnosis: DM W/O COMPLICATION TYPE II, UNCONTROLLED[SNOMED: 78468721] Diagnosis: ESSENTIAL HYPERTENSION[SNOMED: 32580879] Diagnosis: HYPERLIPIDEMIA[ICD9: 272.4] Clarice Elaine MD [facility] CPT-4: 64408 03/28/2012 ([id number]) 30951 EST. PATIENT, LEVEL IV Diagnosis: DM W/O COMPLICATION TYPE II, UNCONTROLLED[SNOMED: 39358353] Diagnosis: ESSENTIAL HYPERTENSION[SNOMED: 67318816] Clarice Elaine MD, [facility] CPT-4: 18566 11/27/2011 ([id number]) 38421 EST. PATIENT, LEVEL III Diagnosis: ESSENTIAL HYPERTENSION[SNOMED: 52769583] Diagnosis: ANEMIA[ICD9: 285.9] Diagnosis: Gastritis[ICD9: 535.50] Clarice Elaine MD [facility] CPT-4: 67176 10/25/2011 ([id number]) [id number] EST. PATIENT, LEVEL III Diagnosis: Anemia associated with acute blood loss[ICD9: 285.1] Diagnosis: Gastritis, acute with hemorrhage[ICD9: 535.01] Clarice Elaine MD [facility] CPT-4: 28413 10/11/2011 ([id number]) 05683 EST. PATIENT, LEVEL IV Diagnosis: Hematochezia[ICD9: 578.1] Diagnosis: ENCNTR LONG-RX USE NEC[ICD9: V58.69] Diagnosis: Abdominal pain[ICD9: 789.00] Clarice Elaine MD [facility] CPT-4: 88057 10/04/2011 ([id number]) 44399 EST. PATIENT, LEVEL IV Diagnosis: DIABETES TYPE II[SNOMED: 154057946] Diagnosis: ESSENTIAL HYPERTENSION[SNOMED: 85283702] Diagnosis: Coronary artery disease[ICD9: 414.00] Clarice Elaine MD, [facility] CPT-4: 39585 09/25/2011 ([id number]) 01720 EST. PATIENT, LEVEL IV Diagnosis: Muscle spasm[ICD9: 728.85] Diagnosis: Arthralgia[ICD9: 719.40] Diagnosis: ESSENTIAL HYPERTENSION[SNOMED: 17787335] Clarice Elaine MD, [facility] CPT-4: 92307 07/31/2011 [id number] EST. PATIENT, LEVEL III Diagnosis: ACUTE SINUSITIS[ICD9: 461.9] Diagnosis: Cervicalgia[ICD9: 723.1] Socorro Elaine MD, [facility] CPT-4: 50064 05/22/2011 [id number] EST. PATIENT, LEVEL IV Diagnosis: HYPERLIPIDEMIA[ICD9: 272.4] Diagnosis: HYPOTHYROIDISM[ICD9: 244.9] Diagnosis: DM W/O COMPLICATION TYPE II, UNCONTROLLED[SNOMED: 37504569] [facility] CPT-4: 46307 05/05/2011 Plan of Care Planned Activity Notes Codes Status Date Appointment: Clarice Elaine WPtel: [phone] [facility] (15 min) Moderate 12/05/2016 Visit Plan: Hypertension - well controlled - continue with current medications, continue with no added salt diet. Pt has been encouraged to exercise daily.The pt has been advised to call the office if there are any acute concerns about change in blood pressure readings at home.Esophagitis - RX for pantoprazole and carafate given to patient - continue with current treatment. 11/01/2016 Appointment: Clarice Elaine WPtel: [phone] [facility] (15 min) Moderate 11/01/2016 Patient Education: Patient Medication Summary Completed 11/01/2016 Visit Plan: ADMIT FROM CLINIC TO HOSPITAL - PT IS ACUTELY ILL, REQUIRES HOSPITALIZATION. THE PATIENT HAS BEEN EVALUATED IN CLINIC AND THIS STANDS THE HOSPITAL HISTORY AND PHYSICAL EXAMINATION. THE PATIENT HAS BEEN SENT TO THE HOSPITAL WITH WRITTEN ORDERS FOR TREATMENT AND EVALUATION OF THE ACUTE ILLNESS. 10/18/2016 Appointment: Clarice Elaine WPtel: [facility] (15 min) Moderate 10/18/2016 Patient Education: Patient Medication Summary Completed 10/18/2016 Visit Plan: Esophageal Reflux - the patient has been counseled against excessive intake of caffeine, spicy foods, peppermint, and cinnamon - all of which can exacerbate esophageal reflux.The patient is to take medications as prescribed and call the office if the symptoms are not improving.Asthma - chronic problem for this patient. We have reviewed chronic treatment strategy, symptom control, and plans for acute exacerbations. No changes today to the current treatment plan as the patient is stable, monitor for acute changes 10/12/2016 Appointment: Jayne Ragland WPtel: [phone] [facility] (30 min) Complex 10/12/2016 Patient Education: Patient Medication Summary Completed 10/12/2016 Patient Education: Obesity Completed 10/12/2016 Visit Plan: Diabetes Mellitus - Uncontrolled - per recent FSBS reports. I have recommended for the patient to have follow up labs prior to the next office visit. The patient has been instructed to continue with current medications as previously directed, continue with regular FSBS monitoring to assure continued control of diabetes. Pt to call for any acute concerns, complaints, or if the blood glucose readings are starting to become less controlled.I have recommended for the patient to follow more strictly to the diabetic diet as discussed in clinic to allow for greater blood glucose control.Afib - treatment per Dr. Aguilar- continue with current management - [facility]. We have reviewed chronic treatment strategy, symptom control, and plans for acute exacerbations. No changes today to the current treatment plan as the patient is stable, monitor for acute changesHypertension - well controlled - continue with current medications, cont inue with no added salt diet. Pt has been encouraged to exercise daily.The pt has been advised to call the office if there are any acute concerns about change in blood pressure readings at home. 09/04/2016 Appointment: Clarice Elaine WPtel: [phone] [facility] (15 min) Moderate 09/04/2016 Patient Education: Patient Medication Summary Completed 09/04/2016 Patient Education: Obesity Completed 09/04/2016 Patient Education: Hypertension Completed 09/04/2016 Appointment: [phone] [facility] - Annual Wellness Visit 06/08/2016 Visit Plan: Edema - pt has been advised to elevate legs to prevent dependent edema, compression has been recommended to help to naturally decrease peripheral edema. Diuretic use has been discussed and pt has been instructed in appropriate use of such medication as necessary to further attempt to reduce peripheral edema.Left ankle pain - The pt is to use prn antiinflammatories to manage acute pain. The patient is to call the office if the pain is worsening or does not improve. 05/30/2016 Appointment: (15 min) Moderate 05/30/2016 Patient Education: Patient Medication Summary Completed 05/30/2016 Visit Plan: Diabetes Mellitus - Uncontrolled - per recent FSBS reports. I have recommended for the patient to have follow up labs prior to the next office visit. The patient has been instructed to continue with current medications as previously directed, continue with regular FSBS monitoring to assure continued control of diabetes. Pt to call for any acute concerns, complaints, or if the blood glucose readings are starting to become less controlled.I have recommended for the patient to follow more strictly to the diabetic diet as discussed in clinic to allow for greater blood glucose control. 05/01/2016 Appointment: Clarice Elaine WPtel: [phone] (15 min) Moderate 05/01/2016 Patient Education: Patient Medication Summary Completed 05/01/2016 Visit Plan: Diabetes Mellitus - controlled - per recent FSBS reports. I have recommended for the patient to have follow up labs prior to the next office visit. The patient has been instructed to continue with current medications as previously directed, continue with regular FSBS monitoring to assure continued control of diabetes. Pt to call for any acute concerns, complaints, or if the blood glucos e readings are starting to become less controlled.Afib - treatment per Dr. Aguilar- continue with current management - [facility]. We have reviewed chronic treatment strategy, symptom control, and plans for acute exacerbations. No changes today to the current treatment plan as the patient is stable, monitor for acute changes 02/29/2016 Appointment: Clarice Elaine WPtel: [facility] Surgical Procedure 02/29/2016 Patient Education: Patient Medication Summary Completed 02/29/2016 Visit Plan: Hypertension - well controlled - continue with current medications, continue with no added salt diet. Pt has been encouraged to exercise daily.The pt has been advised to call the office if there are any acute concerns about change in blood pressure readings at home.Diabetes Mellitus - controlled - per recent FSBS reports. I have recommended for the patient to have follow up labs prior to the next office visit. The patient has been instructed to continue with current medications as previously directed, continue with regular FSBS monitoring to assure continued control of diabetes. Pt to call for any acute concerns, complaints, or if the blood glucose readings are starting to become less controlled.Sinusitis - Pt has acute infection - pain in face, maxillary region, Pt informed to use decongestant, RX given to patient, sinus rinses also recommended. Call if symptoms do not show improvement.Asthma - chronic problem for this patient. We have reviewed chronic treatment strategy, symptom control, and plans for acute exacerbations. No changes today to the current treatment plan as the patient is stable, monitor for acute changesAfib - keep appt with Dr. Aguilar as previously scheduled. 02/03/2016 Patient Education: Patient Medication Summary Completed 02/03/2016 Patient Education: Obesity Completed 02/03/2016 Patient Education: Hypertension Completed 02/03/2016 Visit Plan: Diabetes Mellitus - controlled - per recent FSBS reports. I have recommended for the patient to have follow up labs prior to the next office visit. The patient has been instructed to change her metformin to extended release due to loose stools with her current regular release metformin, she is to continue with regular FSBS monitoring to assure continued control of diabetes. Pt to call for any acute concerns, complaints, or if the blood glucose readings are starting to become less controlled.Asthma - symptoms currently stable - continue with current medications.GERD - restart carafate - take one pill dissolved before meals and before bed - do this x 1 month then decrease to twice daily if the stomach ache symptoms are improved.HTN - uncontrolled - monitor pressure at home, call office with blood pressure readings. 12/21/2015 Appointment: Clarice Elaine WPtel: [address] [place], [place] [address] (15 min) Moderate 12/21/2015 Patient Education: Patient Medication Summary Completed 12/21/2015 Patient Education: Obesity Completed 12/21/2015 Patient Education: Hypertension Completed 12/21/2015 Appointment: Injection 11/11/2015 Patient Education: Patient Medication Summary Completed 11/11/2015 Visit Plan: Asthma Exacerbation - Asthma is a chronic problem for this patient, however, the pt is experiencing an acute exacerbation of the chronic Asthma symptoms. Pt is to receive appropriate treatment as an out patient, but the pt is aware that if symptoms worsen or do not improve, to call [facility] for instructions, or go to the EMERGENCY ROOM if the symptoms are beyond acute control with rescue medications.We have reviewed chronic treatment strategy, symptom control, and plans for acute exacerbations. No changes today to the current treatment plan as the patient is stable, monitor for acute pilar nges.kenalog shot today 10/25/2015 Appointment: [facility]el: [phone] [place] (15 min) Moderate 10/25/2015 Patient Education: Patient Medication Summary Completed 10/25/2015 Visit Plan: DR. ELAINE IN TO SEE PT - PT HAS ACUTE ANXIETY, DYSPNEA, AND CHEST PAIN - ADMIT FROM CLINIC TO HOSPITAL - PT IS ACUTELY ILL, REQUIRES HOSPITALIZATION. THE PATIENT HAS BEEN EVALUATED IN CLINIC AND THIS STANDS THE HOSPITAL HISTORY AND PHYSICAL EXAMINATION. THE PATIENT HAS BEEN SENT TO THE HOSPITAL WITH WRITTEN ORDERS FOR TREATMENT AND EVALUATION OF THE ACUTE ILLNESS. 10/19/2015 Appointment: Socorro Salmeron WPtel: [phone] [place] (30 min) Complex 10/19/2015 Patient Education: Patient Medication Summary Completed 10/19/2015 Visit Plan: Diabetes Mellitus - controlled - per recent FSBS reports. I have recommended for the patient to have follow up labs prior to the next office visit. The patient has been instructed to continue with current medications as previously directed, continue with regular FSBS monitoring to assure continued control of diabetes. Pt to call for any acute concerns, complaints, or if the blood glucos e readings are starting to become less controlled.Hypertension - well controlled - continue with current medications, continue with no added salt diet. Pt has been encouraged to exercise daily.The pt has been advised to call the office if there are any acute concerns about change in blood pressure readings at home.Hypothyroidism - pt with chronic hypothyroidism, continue with current medication, will monitor pt to signs or symptoms of lack of adequate supplementation. Pt is to continue with current dose of medication unless directed otherwise. Check labs at regular intervals wither q 3 months or q 6 months based on previous levels of control. 06/22/2015 Patient Education: Patient Medication Summary Completed 06/22/2015 Patient Education: Hypertension Completed 06/22/2015 Visit Plan: Hypertension - well controlled - continue with current medications, continue with no added salt diet. Pt has been encouraged to exercise daily.The pt has been advised to call the office if there are any acute concerns about change in blood pressure readings at home.Diabetes Mellitus - controlled - per recent FSBS reports. I have recommended for the patient to have follow up labs prior to the next office visit. The patient has been instructed to continue with current medications as previously directed, continue with regular FSBS monitoring to assure continued control of diabetes. Pt to call for any acute concerns, complaints, or if the blood glucose readings are starting to become less controlled. 12/22/2014 Patient Education: Patient Medication Summary Completed 12/22/2014 Patient Education: Hypertension Completed 12/22/2014 Visit Plan: Bronchitis - acute case of bronchitis identified. Pt has been given antibiotics, breathing treatments as appropriate, and pt has been instructed to call if symptoms are not improved, or if symptoms acutely worsen.albuterol nebulizer - use three times daily x 3 days, then twice daily x 3 days, then as needed.use antibiotic as directed - twice daily x 10 days.use probiotic (culturelle) three times daily x 10 days.come back to office on 08/19/13 for steroid injection.Diabetes Mellitus - controlled - per recent FSBS reports. I have recommended for the patient to have follow up labs prior to the next office visit. The patient has been instructed to continue with current medications as previously directed, continue with regular FSBS monitoring to assure continued control of diabetes. Pt to call for any acute concerns, complaints, or if the blood glucose readings are starting to become less controlled.Hypertension - well controlled - continue with current medications, continue with no added salt diet. Pt has been encouraged to exercise daily.The pt has been advised to call the office if there are any acute concerns about change in blood pressure readings at home. 08/17/2014 Appointment: Clarice Elaine WPtel: [address] [place], [place] [address] Follow up 08/17/2014 Patient Education: Patient Medication Summary Completed 08/17/2014 Patient Education: Hypertension Completed 08/17/2014 Visit Plan: Diabetes Mellitus - controlled - per recent FSBS reports. I have recommended for the patient to have follow up labs prior to the next office visit. The patient has been instructed to continue with current medications as previously directed, continue with regular FSBS monitoring to assure continued control of diabetes. Pt to call for any acute concerns, complaints, or if the blood glucos e readings are starting to become less controlled.Hypertension - well controlled - continue with current medications, continue with no added salt diet. Pt has been encouraged to exercise daily.The pt has been advised to call the office if there are any acute concerns about change in blood pressure readings at home.Asthma Exacerbation - pt to be given Kenalog shot today - pt to use Symbicort and prn albuterol. 04/13/2014 Appointment: Clarice Elaine WPtel: [phone] [facility] Follow up 04/13/2014 Patient Education: Patient Medication Summary Completed 04/13/2014 Patient Education: Hypertension Completed 04/13/2014 Visit Plan: Hypertension - well controlled - continue with current medications, continue with no added salt diet. Pt has been encouraged to exercise daily.The pt has been advised to call the office if there are any acute concerns about change in blood pressure readings at home.Diabetes Mellitus - controlled - per recent FSBS reports. I have recommended for the patient to have follow up labs prior to the next office visit. The patient has been instructed to continue with current medications as previously directed, continue with regular FSBS monitoring to assure continued control of diabetes. Pt to call for any acute concerns, complaints, or if the blood glucose readings are starting to become less controlled.Hypothyroidism - pt with chronic hypothyroidism, continue with current medication, will monitor pt to signs or symptoms of lack of adequate supplementation. Pt is to continue with current dose of medication unless directed otherwise. Check labs at regular intervals wither q 3 months or q 6 months based on previous levels of control. 12/11/2013 Appointment: Clarice Elaine WPtel: [phone] [facility] Follow up 12/11/2013 Patient Education: Patient Medication Summary Completed 12/11/2013 Patient Education: Hypertension Completed 12/11/2013 Visit Plan: Diabetes Mellitus - Uncontrolled - per recent FSBS reports. I have recommended for the patient to have follow up labs prior to the next office visit. The patient has been instructed to continue with current medications as previously directed, continue with regular FSBS monitoring to assure continued control of diabetes. Pt to call for any acute concerns, complaints, or if the blood glucose readings are starting to become less controlled.I have recommended for the patient to follow more strictly to the diabetic diet as discussed in clinic to allow for greater blood glucose control.take the glipizide 5mg 1/2 pill twice daily.if the blood sugars are too low, then decrease to just 1/2 pill in the morning.Hypertension - uncontrolled - the patient's medications have been modified as documented in the visit note. The patient has been counseled to cut back on salt in diet for a no added salt diet, low fat diet, start an exercise program with low weight bearing exercises and higher aerobic activity for heart health. The patient is to check blood pressure readings as an outpatient and either fax, call, or email the readings to the office next week for practitioner to review.The pt is to call for acute concerns. 11/10/2013 Appointment: Clarice Elaine [facility]Ptel: [phone] [facility] 11/10/2013 Patient Education: Patient Medication Summary Completed 11/10/2013 Patient Education: Hypertension Completed 11/10/2013 Appointment: Clarcie Elaine WPtel: [phone] Lab [facility] 11/04/2013 Patient Education: Patient Medication Summary Completed 11/04/2013 Patient Education: Hypertension Completed 11/04/2013 Visit Plan: Hypertension - well controlled on home blood pressure checks - continue with current medications, continue with no added salt diet. Pt has been encouraged to exercise daily.The pt has been advised to call the office if there are any acute concerns about change in blood pressure readings at home.Diabetes Mellitus - Uncontrolled - per recent FSBS reports. I have recommended for the patient to have follow up labs prior to the next office visit. The patient has been instructed to continue with current medications as previously directed, continue with regular FSBS monitoring to assure continued control of diabetes. Pt to call for any acute concerns, complaints, or if the blood glucose readings are starting to become less controlled.I have recommended for the patient to follow more strictly to the diabetic diet as discussed in clinic to allow for greater blood glucose control.Pt does not want to start on another medication - she states that she wants to try exercising before more medication is started. URI - Pt advised to increase fluids, vitamin C. Discussed natural and expected course of this diagnosis and need to alert me if symtpoms do not follow expected course, or if any worse. RX sent to patient's pharmacy. 08/11/2013 Appointment: Clarice Elaine WPtel: [phone] [facility] [place] Follow up 08/11/2013 Patient Education: Patient Medication Summary Completed 08/11/2013 Patient Education: Hypertension Completed 08/11/2013 Visit Plan: Diabetes Mellitus - Uncontrolled - per recent FSBS reports. I have recommended for the patient to have follow up labs prior to the next office visit. The patient has been instructed to continue with current medications as previously directed, continue with regular FSBS monitoring to assure continued control of diabetes. Pt to call for any acute concerns, complaints, or if the blood glucose readings are starting to become less controlled.I have recommended for the patient to follow more strictly to the diabetic diet as discussed in clinic to allow for greater blood glucose control.Recommended increase in metformin to 1000mg bid.Afib - recommended digoxin level. Elevated Blood Pressure - - pt has been instructed to check blood pressure as an outpatient, record blood pressure and heart rate and report to the clinic in two weeks on the findings. Pt advised to cut back on added salt in the diet.Flu shot today 05/12/2013 Appointment: Clarice Elaine WPtel: [phone] [facility] Follow up 05/12/2013 Patient Education: Patient Medication Summary Completed 05/12/2013 Patient Education: Hypertension Completed 05/12/2013 Visit Plan: Hypertension - well controlled - continue with current medications, continue with no added salt diet. Pt has been encouraged to exercise daily.The pt has been advised to call the office if there are any acute concerns about change in blood pressure readings at home. Diabetes Mellitus - Uncontrolled - per recent FSBS reports. I have recommended for the patient to have follow up labs prior to the next office visit. The patient has been instructed to continue with current medications as previously directed, continue with regular FSBS monitoring to assure continued control of diabetes. Pt to call for any acute concerns, complaints, or if the blood glucose readings are starting to become less controlled.I have recommended for the patient to follow more strictly to the diabetic diet as discussed in clinic to allow for greater blood glucose control. 01/06/2013 Appointment: Clarice Elaine WPtel: [phone] [place] Follow up 01/06/2013 Patient Education: Patient Medication Summary Completed 01/06/2013 Patient Education: Hypertension Completed 01/06/2013 Visit Plan: Diabetes Mellitus - controlled - per recent FSBS reports. I have recommended for the patient to have follow up labs prior to the next office visit. The patient has been instructed to continue with current medications as previously directed, continue with regular FSBS monitoring to assure continued control of diabetes. Pt to call for any acute concerns, complaints, or if the blood glucos e readings are starting to become less controlled. Hypertension - well controlled - continue with current medications, continue with no added salt diet. Pt has been encouraged to exercise daily.The pt has been advised to call the office if there are any acute concerns about change in blood pressure readings at home.Fatigue - if it does not improve, will need to consider a CBC.Asthma - chronic with acute exacerbation due to allergies - recommended pt to change to zyrtec, if does not improve, pt needs to call [facility], continue with symbicort. Pt given steroid shot today. 10/07/2012 Appointment: Clarice Elaine WPtel: [phone] [place] Follow up 10/07/2012 Patient Education: Patient Medication Summary Completed 10/07/2012 Patient Education: Hypertension Completed 10/07/2012 Visit Plan: Diabetes Mellitus - Uncontrolled - per recent FSBS reports. I have recommended for the patient to have follow up labs prior to the next office visit. The patient has been instructed to continue with current medications as previously directed, continue with regular FSBS monitoring to assure continued control of diabetes. Pt to call for any acute concerns, complaints, or if the blood glucose readings are starting to become less controlled.I have recommended for the patient to follow more strictly to the diabetic diet as discussed in clinic to allow for greater blood glucose control.Pt admits that it is her fault that her blood sugar levels are elevated - she reports that she is eating a lot of baked goods.Lump in chest and on neck - suspect is lipoma, but will have pt get mammogram and ultrasound 09/11/2012 Appointment: Clar[facility]el[facility] [phone] [facility] Follow up 09/11/2012 Patient Education: Patient Medication Summary Completed 09/11/2012 Patient Education: Patient Medication Summary Completed 08/27/2012 Patient Education: Hypertension Completed 08/27/2012 Visit Plan: Hypertension - uncontrolled in clinic, but per her home blood pressure checks, her pressure is in the 100 - 115/65-75 range at home. I have not added blood pressure medications for this patient as her last round of antihypertensives caused severe hypotension. The patient has been counseled to cut back on salt in diet for a no added salt diet, low fat diet, start an exercise program with low weight bearing exercises and higher aerobic activity for heart health. The patient is to check blood pressure readings as an outpatient and either fax, call, or email the readings to the office next week for practicioner to review.The pt is to call for acute concerns. Atrial Fibrillation - pt on plavix (cannot take other blood thinners) is currently rate controlled. The pt is to have labs done as appropriate to monitor medication levels and is to report if they start to feel as if their heart rate is becoming uncontrolled.However, due to digoxin level of 1.4 on 07/04/12, I have recommended pt to cut her digoxin from 250mcg to 125mcg and we will check a digoxin level today.Fatigue - check labs - CBC, digoxin level. 07/15/2012 Appointment: Clar[facility] Elaine [facility]el[facility] [phone] [facility] Follow up 07/15/2012 Patient Education: Patient Medication Summary Completed 07/15/2012 Patient Education: Hypertension Completed 07/15/2012 Visit Plan: Diabetes Mellitus -fairly well controlled - per recent FSBS reports. I have recommended for the patient to have follow up labs prior to the next office visit. The patient has been instructed to continue with current medications as previously directed, continue with regular FSBS monitoring to assure continued control of diabetes. Pt to call for any acute concerns, complaints, or if the blood glucose readings are starting to become less controlled. Hypertension - well controlled - continue with current medications, continue with no added salt diet. Pt has been encouraged to exercise daily.The pt has been advised to call the office if there are any acute concerns about change in blood pressure readings at home.CAD - pt unable to take Aspirin due to severe abdominal pain with taking the aspirin. I have recommended stopping the Aspirin and continuing with Plavix. 05/02/2012 Appointment: Clarice Elaine [facility]Ptel[facility] [phone] [facility] [place] Follow up 05/02/2012 Patient Education: Patient Medication Summary Completed 05/02/2012 Patient Education: High Blood Pressure: Essential Hypertension Completed 05/02/2012 Visit Plan: Diabetes Mellitus - Uncontrolled - per recent FSBS reports. I have recommended for the patient to have follow up labs prior to the next office visit. The patient has been instructed to continue with current medications as previously directed, continue with regular FSBS monitoring to assure continued control of diabetes. Pt to call for any acute concerns, complaints, or if the blood glucose readings are starting to become less controlled.I have recommended for the patient to follow more strictly to the diabetic diet as discussed in clinic to allow for greater blood glucose control. Hyperlipidemia - pt has been counseled about appropriate diet, exercise, and need for low fat food choices. I have discussed the need for the patient to take medications as prescribed. If the patient has negative side effects from the medication, they are to CALL the office and not abruptly discontinue the medication without discussion with a practicioner in the office. We will check labs in 3-6 months for follow up on the patient's chronic medical problem and to assure normal liver response to medications.No change to medications. Hypertension - well controlled - continue with current medications, continue with no added salt diet. Pt has been encouraged to exercise daily.The pt has been advised to call the office if there are any acute concerns about change in blood pressure readings at home.PT HAS UPSET STOMACH WHEN TAKING ASPIRIN, I HAVE RECOMMENDED THAT SHE TRY TO BACK DOEN TO 3 times a week INSTEAD OF STOPPING THE ASPIRIN COMPELTELY. 03/28/2012 Appointment: Clarice Elaine WPtel: [facility] Follow up 03/28/2012 Patient Education: Patient Medication Summary Completed 03/28/2012 Patient Education: High Blood Pressure: Essential Hypertension Completed 03/28/2012 Patient Education: Patient Medication Summary Completed 03/26/2012 Patient Education: High Blood Pressure: Essential Hypertension Completed 03/26/2012 Patient Education: Patient Medication Summary Completed 01/08/2012 Patient Education: High Blood Pressure: Essential Hypertension Completed 01/08/2012 Visit Plan: Diabetes Mellitus - Uncontrolled - per recent FSBS reports. I have recommended for the patient to have follow up labs prior to the next office visit. The patient has been instructed to continue with current medications as previously directed, continue with regular FSBS monitoring to assure continued control of diabetes. Pt to call for any acute concerns, complaints, or if the blood glucose readings are starting to become less controlled.I have recommended for the patient to follow more strictly to the diabetic diet as discussed in clinic to allow for greater blood glucose control.Increase the metformin to 500 mg twice daily. Hypertension - well controlled - continue with current medications, continue with no added salt diet. Pt has been encouraged to exercise daily.The pt has been advised to call the office if there are any acute concerns about change in blood pressure readings at home. 11/27/2011 Appointment: Clarice Elaine WPtel: [facility] [place] Follow up 11/27/2011 Patient Education: Patient Medication Summary Completed 11/27/2011 Patient Education: High Blood Pressure: Essential Hypertension Completed 11/27/2011 Patient Education: Patient Medication Summary Completed 11/06/2011 Appointment: Clarice Elaine WPtel: [address] [place], [place] [id number] Other 11/03/2011 Appointment: Clarice Elaine WPtel: [address] [place], [place] [phone] Other 11/02/2011 Appointment: Clarice Elaine WPtel: [address] [place], [place] [phone] Lab Draw 10/31/2011 Visit Plan: Hypertension - well controlled - continue with current medications, continue with no added salt diet. Pt has been encouraged to exercise daily.The pt has been advised to call the office if there are any acute concerns about change in blood pressure readings at home.ESOPHAGEAL IRRITATION, GASTRITIS- decrease the carafate to twice daily, but if the stomach upset or pain, or dark stools, or fatigue restart, call the office and increase the carafate back to four times daily. 10/25/2011 Appointment: Clarice Elaine WPtel: [facility] [place] Follow up 10/25/2011 Patient Education: Patient Medication Summary Completed 10/25/2011 Patient Education: High Blood Pressure: Essential Hypertension Completed 10/25/2011 Appointment: Clar[facility]el[facility] [phone] [facility] [place] Lab Draw 10/16/2011 Patient Education: Patient Medication Summary Completed 10/16/2011 Visit Plan: GI bleed secondary to the medication causing irritation to the stomach and it led to EROSIVE GASTRITIS.. The protonix is supposed to decrease the amount of acid in the stomach and preventing the medication and the acid from causing a hole in the stomach and further bleeding.Anemia- improved, the hemoglobin has improved from 10.6 to 11.4 10/11/2011 Appointment: Clarice Elaine WPtel: [facility] Other 10/11/2011 Patient Education: Patient Medication Summary Completed 10/11/2011 Appointment: Clarice Elaine WPtel: [facility] [place] Other 10/10/2011 Visit Plan: Abdominal pain and Hematochezia - I have discussed this case with Dr. Aguilar as she is on a blood thinner after recent stent in LAD.He has advised I tell Mrs. Tadeo to do the following:Stop BrillintaStart plavix 75 mg twice daily and 81 mg aspirin dailydaily cbcpt to have stat cbc and chem 7 today.Pt has been given strick instructions as to when to call me or Dr. Aguilar.Hematochezia - pt has 3 occult + stools, but her HGB has remained stable. 10/04/2011 Appointment: Clarice Elaine WPtel: [facility] [place] [place] Follow up 10/04/2011 Patient Education: Patient Medication Summary Completed 10/04/2011 Visit Plan: DM - uncontrolled due to need to stop the metformin during hospitalization. I have recommended that Thalia restart the METFORMIN AT 250MG TWICE DAILY. (THIS IS 1/2 OF THE CURRENT MEDICATION but only twice daily instead of three times daily).HTN - controlled - no change in meds.Stents were placed, pt on expensive new medication - pt to discuss the medication with Dr. Aguilar.Hypertension - well controlled - continue with current medications, continue with no added salt diet. Pt has been encouraged to exercise daily.The pt has been advised to call the office if there are any acute concerns about change in blood pressure readings at home.Neck pain /Cervical Spine pain - pt given exercises to perform for treatment of the pain, pt to continue with anti- inflammatories. Pt given injections into trigger points today in clinc.Muscle spasms - pt given RX for flexeril to be used at 2.5mg q 8 hours prn for pain. Pt to call if symptoms do not improve. 09/25/2011 Appointment: Clarice Elaine WPtel: [facility] [place] Other 09/25/2011 Patient Education: Patient Medication Summary Completed 09/25/2011 Patient Education: High Blood Pressure: Essential Hypertension Completed 09/25/2011 Visit Plan: Hypertension - well controlled - continue with current medications, continue with no added salt diet. Pt has been encouraged to exercise daily.The pt has been advised to call the office if there are any acute concerns about change in blood pressure readings at home.Neck pain /Cervical Spine pain - pt given exercises to perform for treatment of the pain, pt to continue with anti-inflammatories. Pt given injections into trigger points today in clinc.Muscle spasms - pt given RX for flexeril to be used at 2.5mg q 8 hours prn for pain. Pt to call if symptoms do not improve. 07/31/2011 Appointment: Clarice Elaine WPtel: [facility] [place] Other 07/31/2011 Patient Education: Patient Medication Summary Completed 07/31/2011 Patient Education: High Blood Pressure: Essential Hypertension Completed 07/31/2011 Visit Plan: Sinusitis - Pt has acute infection - pain in face, maxillary region, Pt informed to use decongestant, RX given to patient, sinus rinses also recommended. Call if symptoms do not show improvement. Neck pain-discussed natural and expected course of this diagnosis and instructed patient to alert me if symptoms do not follow expected course, or if any worse. Sampels of volteran gel provided and instructed patient on use. 05/22/2011 Appointment: Socorro Salmeron WPtel: [phone] Other 05/22/2011 Patient Education: Patient Medication Summary Completed 05/22/2011 Visit Plan: Hyperlipidemia - pt has been counseled about appropriate diet, exercise, and need for low fat food choices. I have discussed the need for the patient to take medications as prescribed. If the patient has negative side effects from the medication, they are to CALL the office and not abruptly discontinue the medication without discussion with a practicioner in the office. We will check labs in 3-6 months for follow up on the patient's chronic medical problem and to assure normal liver response to medications.START ON THE NIACIN OVER THE COUNTER 500mg daily. Hypothyroidism - pt with chronic hypothyroidism, continue with current medication, will monitor pt to signs or symptoms of lack of adequate supplementation. Pt is to continue with current dose of medication unless directed otherwise. Check labs at regular intervals wither q 3 months or q 6 months based on previous levels of control. Diabetes Mellitus - Uncontrolled - per recent FSBS reports. I have recommended for the patient to have follow up labs prior to the next office visit. The patient has been instructed to continue with current medications as previously directed, continue with regular FSBS monitoring to assure continued control of diabetes. Pt to call for any acute concerns, complaints, or if the blood glucose readings are starting to become less controlled.I have recommended for the patient to follow more strict ly to the diabetic diet as discussed in clinic to allow for greater blood glucose control.metformin dose increased. 05/05/2011 Appointment: Clarice Elaine WPtel: [phone] [facility] Other 05/05/2011 Patient Education: Patient Medication Summary Completed 05/05/2011 Patient Education: High Cholesterol Completed 05/05/2011 Appointment: Clarice Elaine WPtel: [facility] [place] [place] Other 05/04/2011 Appointment: Clarice Elaine WPtel: [facility] [place] [place] Lab Draw 05/02/2011 Patient Education: Patient Medication Summary Completed 05/02/2011 Patient Education: High Blood Pressure: Essential Hypertension Completed 05/02/2011 Instructions Comment . Edema - pt has been advised to elevate legs to prevent dependent edema, compression has been recommended to help to naturally decrease peripheral edema. Diuretic use has been discussed and pt has been instructed in appropriate use of such medication as necessary to further attempt to reduce peripheral edema. Left ankle pain - The pt is to use prn antiinflammatories to manage acute pain. The patient is to call the office if the pain is worsening or does not improve. . Esophageal Reflux - the patient has been counseled against excessive intake of caffeine, spicy foods, peppermint, and cinnamon - all of which can exacerbate esophageal reflux. The patient is to take medications as prescribed and call the office if the symptoms are not improving. Asthma - chronic problem for this patient. We have reviewed chronic treatment strategy, symptom control, and plans for acute exacerbations. No changes today to the current treatment plan as the patient is stable, monitor for acute changes . Hypertension - well controlled - continue with current medications, continue with no added salt diet. Pt has been encouraged to exercise daily. The pt has been advised to call the office if there are any acute concerns about change in blood pressure readings at home. Esophagitis - RX for pantoprazole and carafate given to patient - continue with current treatment. probiotic increase to three times daily while on antibiotics . Hypertension - well controlled - continue with current medications, continue with no added salt diet. Pt has been encouraged to exercise daily. The pt has been advised to call the office if there are any acute concerns about change in blood pressure readings at home. Diabetes Mellitus - controlled - per recent FSBS reports. I have recommended for the patient to have follow up labs prior to the next office visit. The patient has been instructed to continue with current medications as previously directed, continue with regular FSBS monitoring to assure continued control of diabetes. Pt to call for any acute concerns, complaints, or if the blood glucose readings are starting to become less controlled. Sinusitis - Pt has acute infection - pain in face, maxillary region, Pt informed to use decongestant, RX given to patient, sinus rinses also recommended. Call if symptoms do not show improvement. Asthma - chronic problem for this patient. We have reviewed chronic treatment strategy, symptom control, and plans for acute exacerbations. No changes today to the current treatment plan as the patient is stable, monitor for acute changes Afib - keep appt with Dr. Aguilar as previously scheduled. . Hypertension - well controlled - continue with current medications, continue with no added salt diet. Pt has been encouraged to exercise daily. The pt has been advised to call the office if there are any acute concerns about change in blood pressure readings at home. Neck pain /Cervical Spine pain - pt given exercises to perform for treatment of the pain, pt to continue with anti-inflammatories. Pt given injections into trigger points today in clinc. Muscle spasms - pt given RX for flexeril to be used at 2.5mg q 8 hours prn for pain. Pt to call if symptoms do not improve. . Diabetes Mellitus - Uncontrolled - per recent FSBS reports. I have recommended for the patient to have follow up labs prior to the next office visit. The patient has been instructed to continue with current medications as previously directed, continue with regular FSBS monitoring to assure continued control of diabetes. Pt to call for any acute concerns, complaints, or if the blood glucose readings are starting to become less controlled. I have recommended for the patient to follow more strictly to the diabetic diet as discussed in clinic to allow for greater blood glucose control. Pt admits that it is her fault that her blood sugar levels are elevated - she reports that she is eating a lot of baked goods. Lump in chest and on neck - suspect is lipoma, but will have pt get mammogram and ultrasound . DR. ELAINE IN TO SEE PT - PT HAS ACUTE ANXIETY, DYSPNEA, AND CHEST PAIN - ADMIT FROM CLINIC TO HOSPITAL - PT IS ACUTELY ILL, REQUIRES HOSPITALIZATION. THE PATIENT HAS BEEN EVALUATED IN CLINIC AND THIS STANDS THE HOSPITAL HISTORY AND PHYSICAL EXAMINATION. THE PATIENT HAS BEEN SENT TO THE HOSPITAL WITH WRITTEN ORDERS FOR TREATMENT AND EVALUATION OF THE ACUTE ILLNESS. stop your current metformin - Dr. Elaine is prescribing an extended release metformin that is a 500mg pill that you will take ONE pill twice daily - this will end up being the same dose as the two 500mg metformin pills that you currently take. hopefully this change in medication will help to decrease the loose stools that you are experiencing. restart carafate - take one pill dissolved before meals and before bed - do this x 1 month then decrease to twice daily if the stomach ache symptoms are improved. . Diabetes Mellitus - controlled - per recent FSBS reports. I have recommended for the patient to have follow up labs prior to the next office visit. The patient has been instructed to change her metformin to extended release due to loose stools with her current regular release metformin, she is to continue with regular FSBS monitoring to assure continued control of diabetes. Pt to call for any acute concerns, complaints, or if the blood glucose readings are starting to become less controlled. Asthma - symptoms currently stable - continue with current medications. GERD - restart carafate - take one pill dissolved before meals and before bed - do this x 1 month then decrease to twice daily if the stomach ache symptoms are improved. HTN - uncontrolled - monitor pressure at home, call office with blood pressure readings. stop the janumet 50/1000mg and start on the janumet 100/1000mg daily. P2B - peanut powder - [facility] at the organic section at [facility] . Diabetes Mellitus - Uncontrolled - per recent FSBS reports. I have recommended for the patient to have follow up labs prior to the next office visit. The patient has been instructed to continue with current medications as previously directed, continue with regular FSBS monitoring to assure continued control of diabetes. Pt to call for any acute concerns, complaints, or if the blood glucose readings are starting to become less controlled. I have recommended for the patient to follow more strictly to the diabetic diet as discussed in clinic to allow for greater blood glucose control. Afib - treatment per Dr. Aguilar- continue with current management - pt has Lynx device in place Asthma - chronic problem for this patient. We have reviewed chronic treatment strategy, symptom control, and plans for acute exacerbations. No changes today to the current treatment plan as the patient is stable, monitor for acute changes Hypertension - well controlled - continue with current medications, continue with no added salt diet. Pt has been encouraged to exercise daily. The pt has been advised to call the office if there are any acute concerns about change in blood pressure readings at home. STOP ENSURE - START ON GLUCERNA DECREASE FRUIT REPEAT HGBA1C IN 4 MONTHS . Diabetes Mellitus - Uncontrolled - per recent FSBS reports. I have recommended for the patient to have follow up labs prior to the next office visit. The patient has been instructed to continue with current medications as previously directed, continue with regular FSBS monitoring to assure continued control of diabetes. Pt to call for any acute concerns, complaints, or if the blood glucose readings are starting to become less controlled. I have recommended for the patient to follow more strictly to the diabetic diet as discussed in clinic to allow for greater blood glucose control. . Diabetes Mellitus - Uncontrolled - per recent FSBS reports. I have recommended for the patient to have follow up labs prior to the next office visit. The patient has been instructed to continue with current medications as previously directed, continue with regular FSBS monitoring to assure continued control of diabetes. Pt to call for any acute concerns, complaints, or if the blood glucose readings are starting to become less controlled. I have recommended for the patient to follow more strictly to the diabetic diet as discussed in clinic to allow for greater blood glucose control. Hyperlipidemia - pt has been counseled about appropriate diet, exercise, and need for low fat food choices. I have discussed the need for the patient to take medications as prescribed. If the patient has negative side effects from the medication, they are to CALL the office and not abruptly discontinue the medication without discussion with a practicioner in the office. We will check labs in 3-6 months for follow up on the patient's chronic medical problem and to assure normal liver response to medications. No change to medications. Hypertension - well controlled - continue with current medications, continue with no added salt diet. Pt has been encouraged to exercise daily. The pt has been advised to call the office if there are any acute concerns about change in blood pressure readings at home. PT HAS UPSET STOMACH WHEN TAKING ASPIRIN, I HAVE RECOMMENDED THAT SHE TRY TO BACK DOEN TO 3 times a week INSTEAD OF STOPPING THE ASPIRIN COMPELTELY. . GI bleed secondary to the medication causing irritation to the stomach and it led to EROSIVE GASTRITIS.. The protonix is supposed to decrease the amount of acid in the stomach and preventing the medication and the acid from causing a hole in the stomach and further bleeding. Anemia- improved, the hemoglobin has improved from 10.6 to 11.4 . Diabetes Mellitus - controlled - per recent FSBS reports. I have recommended for the patient to have follow up labs prior to the next office visit. The patient has been instructed to continue with current medications as previously directed, continue with regular FSBS monitoring to assure continued control of diabetes. Pt to call for any acute concerns, complaints, or if the blood glucose readings are starting to become less controlled. Hypertension - well controlled - continue with current medications, continue with no added salt diet. Pt has been encouraged to exercise daily. The pt has been advised to call the office if there are any acute concerns about change in blood pressure readings at home. Asthma Exacerbation - pt to be given Kenalog shot today - pt to use Symbicort and prn albuterol. . Diabetes Mellitus - controlled - per recent FSBS reports. I have recommended for the patient to have follow up labs prior to the next office visit. The patient has been instructed to continue with current medications as previously directed, continue with regular FSBS monitoring to assure continued control of diabetes. Pt to call for any acute concerns, complaints, or if the blood glucose readings are starting to become less controlled. Hypertension - well controlled - continue with current medications, continue with no added salt diet. Pt has been encouraged to exercise daily. The pt has been advised to call the office if there are any acute concerns about change in blood pressure readings at home. Fatigue - if it does not improve, will need to consider a CBC. Asthma - chronic with acute exacerbation due to allergies - recommended pt to change to zyrtec, if does not improve, pt needs to call [facility]ATH[facility], continue with symbicort. Pt given steroid shot today. Recommend claritin 10mg po daily at least 2 weeks.. Recommend probiotic (over the counter) twice daily while on the antibiotic to help prevent diarrhea. Samples of volteran gel to neck four times per day as needed for pain. Call next week if neck pain does not improve. . Sinusitis - Pt has acute infection - pain in face, maxillary region, Pt informed to use decongestant, RX given to patient, sinus rinses also recommended. Call if symptoms do not show improvement. Neck pain-discussed natural and expected course of this diagnosis and instructed patient to alert me if symptoms do not follow expected course, or if any worse. Sampels of volteran gel provided and instructed patient on use. . Diabetes Mellitus - controlled - per recent FSBS reports. I have recommended for the patient to have follow up labs prior to the next office visit. The patient has been instructed to continue with current medications as previously directed, continue with regular FSBS monitoring to assure continued control of diabetes. Pt to call for any acute concerns, complaints, or if the blood glucose readings are starting to become less controlled. Hypertension - well controlled - continue with current medications, continue with no added salt diet. Pt has been encouraged to exercise daily. The pt has been advised to call the office if there are any acute concerns about change in blood pressure readings at home. Hypothyroidism - pt with chronic hypothyroidism, continue with current medication, will monitor pt to signs or symptoms of lack of adequate supplementation. Pt is to continue with current dose of medication unless directed otherwise. Check labs at regular intervals wither q 3 months or q 6 months based on previous levels of control. BIOTENE MOUTHWASH FOR DRY MOUTH AND DRY THROAT. Hypertension - well controlled on home blood pressure checks - continue with current medications, continue with no added salt diet. Pt has been encouraged to exercise daily. The pt has been advised to call the office if there are any acute concerns about change in blood pressure readings at home. Diabetes Mellitus - Uncontrolled - per recent FSBS reports. I have recommended for the patient to have follow up labs prior to the next office visit. The patient has been instructed to continue with current medications as previously directed, continue with regular FSBS monitoring to assure continued control of diabetes. Pt to call for any acute concerns, complaints, or if the blood glucose readings are starting to become less controlled. I have recommended for the patient to follow more strictly to the diabetic diet as discussed in clinic to allow for greater blood glucose control. Pt does not want to start on another medication - she states that she wants to try exercising before more medication is started. URI - Pt advised to increase fluids, vitamin C. Discussed natural and expected course of this diagnosis and need to alert me if symtpoms do not follow expected course, or if any worse. RX sent to patient's pharmacy. take the glipizide 5mg 1/2 pill twice daily. if the blood sugars are too low, then decrease to just 1/2 pill in the morning. . Diabetes Mellitus - Uncontrolled - per recent FSBS reports. I have recommended for the patient to have follow up labs prior to the next office visit. The patient has been instructed to continue with current medications as previously directed, continue with regular FSBS monitoring to assure continued control of diabetes. Pt to call for any acute concerns, complaints, or if the blood glucose readings are starting to become less controlled. I have recommended for the patient to follow more strictly to the diabetic diet as discussed in clinic to allow for greater blood glucose control. take the glipizide 5mg 1/2 pill twice daily. if the blood sugars are too low, then decrease to just 1/2 pill in the morning. Hypertension - uncontrolled - the patient's medications have been modified as documented in the visit note. The patient has been counseled to cut back on salt in diet for a no added salt diet, low fat diet, start an exercise program with low weight bearing exercises and higher aerobic activity for heart health. The patient is to check blood pressure readings as an outpatient and either fax, call, or email the readings to the office next week for practitioner to review. The pt is to call for acute concerns. . Asthma Exacerbation - Asthma is a chronic problem for this patient, however, the pt is experiencing an acute exacerbation of the chronic Asthma symptoms. Pt is to receive appropriate treatment as an out patient, but the pt is aware that if symptoms worsen or do not improve, to call [facility] for instructions, or go to the EMERGENCY ROOM if the symptoms are beyond acute control with rescue medications. We have reviewed chronic treatment strategy, symptom control, and plans for acute exacerbations. No changes today to the current treatment plan as the patient is stable, monitor for acute changes. kenalog shot today . Diabetes Mellitus - Uncontrolled - per recent FSBS reports. I have recommended for the patient to have follow up labs prior to the next office visit. The patient has been instructed to continue with current medications as previously directed, continue with regular FSBS monitoring to assure continued control of diabetes. Pt to call for any acute concerns, complaints, or if the blood glucose readings are starting to become less controlled. I have recommended for the patient to follow more strictly to the diabetic diet as discussed in clinic to allow for greater blood glucose control. Increase the metformin to 500 mg twice daily. Hypertension - well controlled - continue with current medications, continue with no added salt diet. Pt has been encouraged to exercise daily. The pt has been advised to call the office if there are any acute concerns about change in blood pressure readings at home. . Abdominal pain and Hematochezia - I have discussed this case with Dr. Aguilar as she is on a blood thinner after recent stent in LAD. He has advised I tell Mrs. Tadeo to do the following: Stop Brillinta Start plavix 75 mg twice daily and 81 mg aspirin daily daily cbc pt to have stat cbc and chem 7 today. Pt has been given strick instructions as to when to call me or Dr. Aguilar. Hematochezia - pt has 3 occult + stools, but her HGB has remained stable. . Hypertension - well controlled - continue with current medications, continue with no added salt diet. Pt has been encouraged to exercise daily. The pt has been advised to call the office if there are any acute concerns about change in blood pressure readings at home. ESOPHAGEAL IRRITATION, GASTRITIS- decrease the carafate to twice daily, but if the stomach upset or pain, or dark stools, or fatigue restart, call the office and increase the carafate back to four times daily. . Diabetes Mellitus -fairly well controlled - per recent FSBS reports. I have recommended for the patient to have follow up labs prior to the next office visit. The patient has been instructed to continue with current medications as previously directed, continue with regular FSBS monitoring to assure continued control of diabetes. Pt to call for any acute concerns, complaints, or if the blood glucose readings are starting to become less controlled. Hypertension - well controlled - continue with current medications, continue with no added salt diet. Pt has been encouraged to exercise daily. The pt has been advised to call the office if there are any acute concerns about change in blood pressure readings at home. CAD - pt unable to take Aspirin due to severe abdominal pain with taking the aspirin. I have recommended stopping the Aspirin and continuing with Plavix. . Hypertension - uncontrolled in clinic, but per her home blood pressure checks, her pressure is in the 100 - 115/65-75 range at home. I have not added blood pressure medications for this patient as her last round of antihypertensives caused severe hypotension. The patient has been counseled to cut back on salt in diet for a no added salt diet, low fat diet, start an exercise program with low weight bearing exercises and higher aerobic activity for heart health. The patient is to check blood pressure readings as an outpatient and either fax, call, or email the readings to the office next week for practicioner to review. The pt is to call for acute concerns. Atrial Fibrillation - pt on plavix (cannot take other blood thinners) is currently rate controlled. The pt is to have labs done as appropriate to monitor medication levels and is to report if they start to feel as if their heart rate is becoming uncontrolled. However, due to digoxin level of 1.4 on 07/04/12, I have recommended pt to cut her digoxin from 250mcg to 125mcg and we will check a digoxin level today. Fatigue - check labs - CBC, digoxin level. . Hypertension - well controlled - continue with current medications, continue with no added salt diet. Pt has been encouraged to exercise daily. The pt has been advised to call the office if there are any acute concerns about change in blood pressure readings at home. Diabetes Mellitus - Uncontrolled - per recent FSBS reports. I have recommended for the patient to have follow up labs prior to the next office visit. The patient has been instructed to continue with current medications as previously directed, continue with regular FSBS monitoring to assure continued control of diabetes. Pt to call for any acute concerns, complaints, or if the blood glucose readings are starting to become less controlled. I have recommended for the patient to follow more strictly to the diabetic diet as discussed in clinic to allow for greater blood glucose control. albuterol nebulizer - use three times daily x 3 days, then twice daily x 3 days, then as needed. use antibiotic as directed - twice daily x 10 days. use probiotic (culturelle) three times daily x 10 days. come back to office on 08/19/13 for steroid injection. . Bronchitis - acute case of bronchitis identified. Pt has been given antibiotics, breathing treatments as appropriate, and pt has been instructed to call if symptoms are not improved, or if symptoms acutely worsen. albuterol nebulizer - use three times daily x 3 days, then twice daily x 3 days, then as needed. use antibiotic as directed - twice daily x 10 days. use probiotic (culturelle) three times daily x 10 days. come back to office on 08/19/13 for steroid injection. Diabetes Mellitus - controlled - per recent FSBS reports. I have recommended for the patient to have follow up labs prior to the next office visit. The patient has been instructed to continue with current medications as previously directed, continue with regular FSBS monitoring to assure continued control of diabetes. Pt to call for any acute concerns, complaints, or if the blood glucose readings are starting to become less controlled. Hypertension - well controlled - continue with current medications, continue with no added salt diet. Pt has been encouraged to exercise daily. The pt has been advised to call the office if there are any acute concerns about change in blood pressure readings at home. . DM - uncontrolled due to need to stop the metformin during hospitalization. I have recommended that Thalia restart the METFORMIN AT 250MG TWICE DAILY. (THIS IS 1/2 OF THE CURRENT MEDICATION but only twice daily instead of three times daily). HTN - controlled - no change in meds. Stents were placed, pt on expensive new medication - pt to discuss the medication with Dr. Aguilar. Hypertension - well controlled - continue with current medications, continue with no added salt diet. Pt has been encouraged to exercise daily. The pt has been advised to call the office if there are any acute concerns about change in blood pressure readings at home. Neck pain /Cervical Spine pain - pt given exercises to perform for treatment of the pain, pt to continue with anti-inflammatories. Pt given injections into trigger points today in clinc. Muscle spasms - pt given RX for flexeril to be used at 2.5mg q 8 hours prn for pain. Pt to call if symptoms do not improve. . Hyperlipidemia - pt has been counseled about appropriate diet, exercise, and need for low fat food choices. I have discussed the need for the patient to take medications as prescribed. If the patient has negative side effects from the medication, they are to CALL the office and not abruptly discontinue the medication without discussion with a practicioner in the office. We will check labs in 3-6 months for follow up on the patient's chronic medical problem and to assure normal liver response to medications. START ON THE NIACIN OVER THE COUNTER 500mg daily. Hypothyroidism - pt with chronic hypothyroidism, continue with current medication, will monitor pt to signs or symptoms of lack of adequate supplementation. Pt is to continue with current dose of medication unless directed otherwise. Check labs at regular intervals wither q 3 months or q 6 months based on previous levels of control. Diabetes Mellitus - Uncontrolled - per recent FSBS reports. I have recommended for the patient to have follow up labs prior to the next office visit. The patient has been instructed to continue with current medications as previously directed, continue with regular FSBS monitoring to assure continued control of diabetes. Pt to call for any acute concerns, complaints, or if the blood glucose readings are starting to become less controlled. I have recommended for the patient to follow more strictly to the diabetic diet as discussed in clinic to allow for greater blood glucose control. metformin dose increased. . Diabetes Mellitus - controlled - per recent FSBS reports. I have recommended for the patient to have follow up labs prior to the next office visit. The patient has been instructed to continue with current medications as previously directed, continue with regular FSBS monitoring to assure continued control of diabetes. Pt to call for any acute concerns, complaints, or if the blood glucose readings are starting to become less controlled. Afib - treatment per Dr. Aguilar- continue with current management - pt has Lynx device in place Asthma - chronic problem for this patient. We have reviewed chronic treatment strategy, symptom control, and plans for acute exacerbations. No changes today to the current treatment plan as the patient is stable, monitor for acute changes . ADMIT FROM CLINIC TO HOSPITAL - PT IS ACUTELY ILL, REQUIRES HOSPITALIZATION. THE PATIENT HAS BEEN EVALUATED IN CLINIC AND THIS STANDS THE HOSPITAL HISTORY AND PHYSICAL EXAMINATION. THE PATIENT HAS BEEN SENT TO THE HOSPITAL WITH WRITTEN ORDERS FOR TREATMENT AND EVALUATION OF THE ACUTE ILLNESS. . Hypertension - well controlled - continue with current medications, continue with no added salt diet. Pt has been encouraged to exercise daily. The pt has been advised to call the office if there are any acute concerns about change in blood pressure readings at home. Diabetes Mellitus - controlled - per recent FSBS reports. I have recommended for the patient to have follow up labs prior to the next office visit. The patient has been instructed to continue with current medications as previously directed, continue with regular FSBS monitoring to assure continued control of diabetes. Pt to call for any acute concerns, complaints, or if the blood glucose readings are starting to become less controlled. Hypothyroidism - pt with chronic hypothyroidism, continue with current medication, will monitor pt to signs or symptoms of lack of adequate supplementation. Pt is to continue with current dose of medication unless directed otherwise. Check labs at regular intervals wither q 3 months or q 6 months based on previous levels of control. . Hypertension - well controlled - continue with current medications, continue with no added salt diet. Pt has been encouraged to exercise daily. The pt has been advised to call the office if there are any acute concerns about change in blood pressure readings at home. Diabetes Mellitus - controlled - per recent FSBS reports. I have recommended for the patient to have follow up labs prior to the next office visit. The patient has been instructed to continue with current medications as previously directed, continue with regular FSBS monitoring to assure continued control of diabetes. Pt to call for any acute concerns, complaints, or if the blood glucose readings are starting to become less controlled. . Diabetes Mellitus - Uncontrolled - per recent FSBS reports. I have recommended for the patient to have follow up labs prior to the next office visit. The patient has been instructed to continue with current medications as previously directed, continue with regular FSBS monitoring to assure continued control of diabetes. Pt to call for any acute concerns, complaints, or if the blood glucose readings are starting to become less controlled. I have recommended for the patient to follow more strictly to the diabetic diet as discussed in clinic to allow for greater blood glucose control. Recommended increase in metformin to 1000mg bid. Afib - recommended digoxin level. Elevated Blood Pressure - - pt has been instructed to check blood pressure as an outpatient, record blood pressure and heart rate and report to the clinic in two weeks on the findings. Pt advised to cut back on added salt in the diet. Flu shot today
--- OUTSIDE RECORDS SUMMARY | 2018-12-28 04:07 | XMS REPORT | CCD ---
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[address]: 899064396 Nonsmoker 05/05/[address]: 502382972 Never drinks alcohol 05/05/2011 Has the patient [...] Start Date Stop Date Status Fill Instructions Plavix 75 mg tablet RxNorm: 303858 TAKE ONE TABLET BY MOUTH ONCE DAILY 12/25/2016 06/22/2017 Active Janumet XR 100 mg-1,000 mg tablet,extended release RxNorm: 5221744 1 Tablet(s) PO daily 09/04/2016 03/02/2017 Active Kenalog 40 mg/mL suspension for injection RxNorm: 0506767 1.5 Milliliter(s) Inj 09/04/2016 09/04/2016 Inactive glipizide 5 mg tablet RxNorm: 586093 TAKE ONE-HALF TABLET BY MOUTH TWICE DAILY 08/24/2016 02/19/2017 Active Janumet XR 50 mg-1,000 mg tablet,extended release RxNorm: 8087706 TAKE ONE TABLET BY MOUTH ONCE DAILY 05/29/2016 09/03/2016 Inactive metoprolol tartrate 25 mg tablet RxNorm: 768048 1/4 Tablet(s) PO BID 05/01/2016 05/29/2016 Inactive glipizide 5 mg tablet RxNorm: 896487 TAKE ONE-HALF TABLET BY MOUTH TWICE DAILY 02/21/2016 08/18/2016 Inactive ProAir HFA 90 mcg/actuation aerosol inhaler RxNorm: 400593 2 Puff(s) INH PRN as needed ASTHMA 02/03/2016 03/03/2016 Inactive albuterol sulfate 2.5 mg/3 mL (0.083 %) solution for nebulization RxNorm: 331376 1 Milliliter(s) INH QID as needed ASTHMA 02/03/2016 06/01/2016 Inactive Accu-Chek Active Test strips RxNorm: 1 test Miscellaneous daily 02/03/2016 08/25/2019 Active DX250.00 Janumet XR 50 mg-1,000 mg tablet,extended release RxNorm: 3298915 1 Tablet(s) PO daily 02/03/2016 05/28/2016 Inactive Augmentin 875 mg-125 mg tablet RxNorm: 173042 1 Tablet(s) PO BID 02/03/2016 02/12/2016 Inactive sucralfate 1 gram tablet RxNorm: 182807 1 Tablet(s) PO QID - take 30 minutes before meals and before supper 12/21/2015 04/18/2016 Inactive digoxin 250 mcg tablet RxNorm: 577346 1 Tablet(s) PO daily 12/21/2015 No Stop Date Active metformin ER 500 mg tablet,extended release 24 hr RxNorm: 420413 1 Tablet(s) PO BID 12/21/2015 02/02/2016 Inactive Synthroid 88 mcg tablet RxNorm: 710011 Tablet(s) PO TAKE ONE TABLET BY MOUTH DAILY 12/20/2015 No Stop Date Active Plavix 75 mg tablet RxNorm: 530478 1 Tablet(s) PO daily 12/20/2015 12/13/2016 Inactive Kenalog 40 mg/mL suspension for injection RxNorm: 5899766 1 Milliliter(s) Inj 11/11/2015 11/11/2015 Inactive Kenalog 40 mg/mL suspension for injection RxNorm: 7563625 1 Milliliter(s) Inj 10/25/2015 10/25/2015 Inactive metformin 500 mg tablet RxNorm: 822182 2 Tablet(s) PO BID 07/16/2015 12/20/2015 Inactive metformin 500 mg tablet RxNorm: 248974 TAKE TWO TABLETS BY MOUTH TWICE DAILY 07/16/2015 12/20/2015 Inactive albuterol sulfate 2.5 mg/3 mL (0.083 %) solution for nebulization RxNorm: 385399 1 Milliliter(s) INH QID as needed ASTHMA 07/14/2015 11/10/2015 Inactive glipizide 5 mg tablet RxNorm: 211769 1/2 Tablet(s) PO BID 02/03/2015 01/28/2016 Inactive Symbicort 160 mcg-4.5 mcg/actuation HFA aerosol inhaler RxNorm: 3020774 1 INH 01/06/2015 No Stop Date Active metformin 500 mg tablet RxNorm: 563618 2 Tablet(s) PO BID 12/22/2014 06/19/2015 Inactive Synthroid 88 mcg tablet RxNorm: 499438 1 Tablet(s) PO daily TAKE ONE TABLET BY MOUTH DAILY 12/02/2014 11/26/2015 Inactive Plavix 75 mg tablet RxNorm: 462048 1 Tablet(s) PO daily 12/02/2014 11/26/2015 Inactive note directions of one per day Accu-Chek Active Test strips RxNorm: 1 test Miscellaneous daily 08/17/2014 02/02/2016 Inactive DX250.00 Kenalog 40 mg/mL suspension for injection RxNorm: 5531877 Milliliter(s) Inj 08/17/2014 08/17/2014 Inactive doxycycline hyclate 100 mg tablet RxNorm: 128487 1 Tablet(s) PO BID 08/17/2014 08/26/2014 Inactive albuterol sulfate 2.5 mg/3 mL (0.083 %) solution for nebulization RxNorm: 034510 1 Milliliter(s) INH QID as needed ASTHMA 08/17/2014 08/16/2014 Inactive albuterol sulfate 2.5 mg/3 mL (0.083 %) solution for nebulization RxNorm: 045208 1 Milliliter(s) INH QID as needed ASTHMA 08/17/2014 12/14/2014 Inactive doxycycline hyclate 100 mg tablet RxNorm: 537186 1 Tablet(s) PO BID 08/17/2014 08/16/2014 Inactive Accu-Chek Multiclix Lancet RxNorm: 1 Miscellaneous daily TEST BLOOD SUGAR EVERY DAY 08/17/2014 09/10/2015 Inactive DX 250.00 metformin 500 mg tablet RxNorm: 722007 TAKE TWO TABLETS BY MOUTH TWICE DAILY 06/23/2014 09/20/2014 Inactive metformin 500 mg tablet RxNorm: 110532 2 Tablet(s) PO BID 06/22/2014 12/18/2014 Inactive Bactrim DS 800 mg-160 mg tablet RxNorm: 377072 1 Tablet(s) PO BID 05/11/2014 05/17/2014 Inactive Bactrim DS 800 mg-160 mg tablet RxNorm: 519951 1 Tablet(s) PO BID 05/11/2014 05/10/2014 Inactive Kenalog 40 mg/mL suspension for injection RxNorm: 9337494 Milliliter(s) Inj 04/13/2014 04/13/2014 Inactive Accu-Chek Active Test strips RxNorm: 1 TEST MISCELLANEOUS BID 04/06/2014 10/22/2014 Inactive glipizide 5 mg tablet RxNorm: 006637 1/2 Tablet(s) PO BID 03/03/2014 02/02/2015 Inactive Synthroid 88 mcg tablet RxNorm: 980059 1 Tablet(s) PO daily TAKE ONE TABLET BY MOUTH DAILY 12/11/2013 12/01/2014 Inactive Plavix 75 mg tablet RxNorm: 750559 1 Tablet(s) PO daily 12/11/2013 12/01/2014 Inactive note directions of one per day glipizide 5 mg tablet RxNorm: 788334 1/2 Tablet(s) PO BID 11/10/2013 03/02/2014 Inactive Lipitor 10 mg tablet RxNorm: 565408 1 Tablet(s) PO daily 11/10/2013 12/21/2014 Inactive Accu-Chek Active Test strips RxNorm: strip miscellaneous TEST BLOOD SUGAR EVERY DAY 11/03/2013 No Stop Date Active Accu-Chek Multiclix Lancet RxNorm: misc miscellaneous TEST BLOOD SUGAR EVERY DAY 08/07/2013 08/16/2014 Inactive Accu-Chek Active Test strips RxNorm: strip miscellaneous TEST BLOOD SUGAR EVERY DAY 08/05/2013 No Stop Date Active digoxin 125 mcg tablet RxNorm: 273222 1 Tablet(s) PO daily 08/05/2013 10/28/2014 Inactive metformin 500 mg tablet RxNorm: 598809 2 Tablet(s) PO BID 06/12/2013 06/21/2014 Inactive metformin 500 mg tablet RxNorm: 177858 2 Tablet(s) PO BID 05/12/2013 06/11/2013 Inactive metformin 500 mg tablet RxNorm: 947116 Tablet(s) PO TAKE ONE & ONE-HALF TABLETS BY MOUTH TWICE DAILY 04/10/2013 05/11/2013 Inactive Synthroid 88 mcg tablet RxNorm: 030665 Tablet(s) PO TAKE ONE TABLET BY MOUTH DAILY 01/07/2013 12/19/2015 Inactive Synthroid 88 mcg tablet RxNorm: 547991 1 Tablet(s) PO daily TAKE ONE TABLET BY MOUTH DAILY 01/06/2013 12/10/2013 Inactive Plavix 75 mg tablet RxNorm: 370796 1 Tablet(s) PO daily 12/09/2012 12/03/2013 Inactive note directions of one per day Lipitor 80 mg tablet RxNorm: 975301 Tablet(s) PO TAKE 1 TABLET BY MOUTH EVERY DAY 10/28/2012 11/09/2013 Inactive Synthroid 88 mcg tablet RxNorm: 191959 Tablet(s) PO TAKE ONE TABLET BY MOUTH DAILY 10/07/2012 10/06/2012 Inactive Synthroid 88 mcg tablet RxNorm: 132923 1 Tablet(s) PO daily TAKE ONE TABLET BY MOUTH DAILY 10/07/2012 01/05/2013 Inactive Kenalog 40 mg/mL Susp for Injection RxNorm: 1252547 1 Milliliter(s) IM 10/07/2012 10/07/2012 Inactive digoxin 250 mcg tablet RxNorm: 9257968 1/2 Tablet(s) PO daily 07/15/2012 08/04/2013 Inactive Synthroid 88 mcg tablet RxNorm: 843277 Tablet(s) PO TAKE ONE TABLET BY MOUTH DAILY 06/28/2012 10/06/2012 Inactive Accu-Chek Multiclix Lancet RxNorm: Misc Miscellaneous 06/05/2012 No Stop Date Active TEST BLOOD SUGAR EVERY DAY Accu-Chek Active Test Strips RxNorm: Strip Miscellaneous 06/05/2012 No Stop Date Active TEST BLOOD SUGAR EVERY DAY Lipitor 80 mg tablet RxNorm: 960908 1/2 Tablet(s) PO daily 03/28/2012 No Stop Date Active TAKE 1 TABLET BY MOUTH EVERY DAY metformin 500 mg tablet RxNorm: 550982 1.5 Tablet(s) PO BID 03/28/2012 04/09/2013 Inactive Lipitor 80 mg tablet RxNorm: 905772 1/2 Tablet(s) PO 03/28/2012 08/16/2014 Inactive TAKE 1 TABLET BY MOUTH EVERY DAY Lipitor 80 mg tablet RxNorm: 019020 1/2 Tablet(s) PO daily 03/28/2012 No Stop Date Active TAKE 1 TABLET BY MOUTH EVERY DAY Influenza Virus Vaccine 0.5 mL RxNorm: IM 03/26/2012 03/26/2012 Inactive Pneumovax 23 25 mcg/0.5 mL Injection RxNorm: 397995 Milliliter(s) Inj 03/26/2012 03/26/2012 Inactive metformin 500 mg tablet RxNorm: 981381 1 Tablet(s) PO BID 11/27/2011 03/27/2012 Inactive Plavix 75 mg tablet RxNorm: 361632 1 Tablet(s) PO daily 11/01/2011 11/24/2012 Inactive note directions of one per day Lipitor 80 mg tablet RxNorm: 087006 Tablet(s) PO 10/18/2011 03/27/2012 Inactive TAKE 1 TABLET BY MOUTH EVERY DAY Protonix 40 mg Tab RxNorm: 631340 1 Tablet(s) PO BID 10/11/2011 12/20/2015 Inactive Accu-Chek Active Test Strips RxNorm: 1 test Miscellaneous daily 10/04/2011 08/16/2014 Inactive Carafate 1 gram Tab RxNorm: 371811 1 Tablet(s) PO QID 10/02/2011 10/31/2011 Inactive Carafate 1 gram Tab RxNorm: 821411 1 Tablet(s) PO TID 09/29/2011 09/28/2011 Inactive Carafate 1 gram Tab RxNorm: 638640 1 Tablet(s) PO TID 09/29/2011 10/01/2011 Inactive Kenalog 40 mg/mL Susp for Injection RxNorm: 8929915 2 Milliliter(s) Inj 07/31/2011 07/31/2011 Inactive Synthroid 88 mcg tablet RxNorm: 857186 1 Tablet(s) PO daily 06/06/2011 10/11/2011 Inactive Accu-Chek Active Test Strips RxNorm: 1 test Miscellaneous BID 06/05/2011 10/03/2011 Inactive Accu-Chek Multiclix Lancet RxNorm: 1 test Miscellaneous BID 06/02/2011 09/24/2011 Inactive Accu-Chek Active Test strips RxNorm: 1 test Miscellaneous BID 06/02/2011 06/04/2011 Inactive Bactrim DS 800 mg-160 mg Tab RxNorm: 995357 1 Tablet(s) PO BID 05/22/2011 05/31/2011 Inactive metformin 500 mg Tab RxNorm: 255514 1 Tablet(s) PO TID 05/05/2011 10/31/2011 Inactive Influenza Virus Vaccine 0.5 mL RxNorm: IM 05/02/2011 05/02/2011 Inactive albuterol sulfate HFA 90 mcg/Actuation Aerosol Inhaler RxNorm: 624286 1 Puff(s) INH PRN prn shortness of breath No Start Date Active pantoprazole 40 mg tablet,delayed release RxNorm: 303893 1 Tablet(s) PO daily No Start Date Active Singulair 10 mg tablet RxNorm: 217341 1 Tablet(s) PO daily No Start Date Active multivitamin chewable tablet RxNorm: 1 Tablet(s) PO daily No Start Date Active Fish Oil 300 mg-1,000 mg capsule RxNorm: 900141 1 Capsule(s) PO occasional No Start Date Active hyoscyamine 0.125 mg sublingual tablet RxNorm: 6286348 1 Tablet(s) SL Q6 No Start Date Active simvastatin 20 mg tablet RxNorm: 897041 1/2 Tablet(s) PO daily No Start Date 12/20/2015 Inactive Zantac 75 75 mg Tab RxNorm: 893431 2 Tablet(s) PO daily No Start Date 12/20/2015 Inactive Protonix 40 mg Tab RxNorm: 220191 1 Tablet(s) PO daily No Start Date 10/10/2011 Inactive Fish Oil 1,000 mg capsule RxNorm: 3 Capsule(s) PO daily No Start Date 12/20/2015 Inactive digoxin 125 mcg tablet RxNorm: 0440635 1 Tablet(s) PO daily No Start Date 08/04/2013 Inactive Brilinta 90 mg Tab RxNorm: 2620847 1 Tablet(s) PO daily No Start Date 10/10/2011 Inactive Fish Oil 1,000 mg Cap RxNorm: 3 Capsule(s) PO daily No Start Date 12/21/2015 Inactive Flintstones Complete 18 mg iron chewable tablet RxNorm: 2 Tablet(s) PO daily No Start Date 12/20/2015 Inactive Niaspan Extended-Release 500 mg 24 hr Tab RxNorm: 8096995 1 Tablet(s) PO daily No Start Date 09/24/2011 Inactive samples aspirin 81 mg Cap, Delayed Release RxNorm: 786074 Capsule(s) PO daily No Start Date 05/01/2012 Inactive metformin 500 mg Tab RxNorm: 934962 1 Tablet(s) PO BID No Start Date 05/04/2011 Inactive Prilosec OTC 20 mg tablet,delayed release RxNorm: 839883 1 Tablet(s) PO daily No Start Date 10/31/2016 Inactive Zantac 150 mg Tab RxNorm: 990569 1 Tablet(s) PO BID No Start Date 10/10/2011 Inactive Synthroid 88 mcg Tab RxNorm: 120573 1 Tablet(s) PO daily No Start Date 06/05/2011 Inactive Plavix 75 mg Tab RxNorm: 699660 1 Tablet(s) PO daily No Start Date 10/31/2011 Inactive aspirin 81 mg Cap, Delayed Release RxNorm: 060571 1 Capsule(s) PO daily No Start Date 10/01/2011 Inactive Lipitor 80 mg Tab RxNorm: 802997 1 Tablet(s) PO daily No Start Date 10/17/2011 Inactive Symbicort 160 mcg-4.5 mcg/Actuation HFA Aerosol Inhaler RxNorm: 0700300 1 INH No Start Date 01/05/2015 Inactive Medication Administered Medication Codes Instructions Start Date Status Kenalog 40 mg/mL suspension for injection RxNorm: 8474665 1.5Milliliter 09/04/2016 No longer Active Kenalog 40 mg/mL suspension for injection RxNorm: 7453151 1Milliliter 11/11/2015 No longer Active Kenalog 40 mg/mL suspension for injection RxNorm: 2104330 1Milliliter 10/25/2015 No longer Active Kenalog 40 mg/mL suspension for injection RxNorm: 5533296 Milliliter 08/17/2014 No longer Active Kenalog 40 mg/mL suspension for injection RxNorm: 4754477 Milliliter 04/13/2014 No longer Active Kenalog 40 mg/mL Susp for Injection RxNorm: 9295240 1Milliliter 10/07/2012 No longer Active Influenza Virus Vaccine 0.5 mL RxNorm: 03/26/2012 No longer Active Pneumovax 23 25 mcg/0.5 mL Injection RxNorm: 329381 Milliliter 03/26/2012 No longer Active Kenalog 40 mg/mL Susp for Injection RxNorm: 3638012 2Milliliter 07/31/2011 No longer Active Influenza Virus [...] 12/22/2014 DIABETES TYPE II ICD-9: 250.00 12/22/2014 Acute asthma exacerbation ICD-9: 493.92 08/17/2014 ACUTE BRONCHITIS ICD-9: 466.0 08/17/2014 HYPOTHYROIDISM ICD-9: 244.9 12/11/2013 DM W/O COMPLICATION TYPE II, UNCONTROLLED ICD-9: 250.02 11/10/2013 HYPERLIPIDEMIA ICD-9: 272.4 11/04/2013 ATRIAL FIBRILLATION ICD-9: 427.31 11/04/2013 ENCNTR LONG-RX USE NEC ICD-9: V58.69 11/04/2013 ANEMIA NEC ICD-9: 285.8 11/04/2013 VACCIN FOR INFLUENZA ICD-9: V04.81 05/12/2013 Fatigue ICD-9: 780.79 10/07/2012 Lump of breast, right ICD-9: 611.72 09/11/2012 Lump on neck ICD-9: 784.2 09/11/2012 Encounter for monitoring digoxin therapy ICD-9: V58.83 07/15/2012 Immunization, pneumococcus and influenza ICD-9: V06.6 03/26/2012 Gastritis ICD-9: 535.50 10/25/2011 ANEMIA ICD-9: 285.9 10/25/2011 Anemia associated with acute blood loss ICD-9: 285.1 10/11/2011 Gastritis, acute with hemorrhage ICD-9: 535.01 10/11/2011 Hematochezia ICD-9: 578.1 10/04/2011 Abdominal pain ICD-9: 789.00 10/04/2011 Coronary artery disease ICD-9: 414.00 09/25/2011 [...] Code Item Item Code Result Date CBC 8469473 WBC 6.8 10e9/L 08/21/2016 CBC 1356396 RBC 4.87 10e12/L 08/21/2016 CBC 5334840 HEMOGLOBIN 12.7 g/dL 08/21/2016 CBC 4083296 HEMATOCRIT 40.5 % 08/21/2016 CBC 1020850 MCV 83.2 fL 08/21/2016 CBC 0880266 MCH 26.1 pg 08/21/2016 CBC 0430189 MCHC 31.4 g/dL 08/21/2016 CBC 7292309 PLATELET COUNT 334 10e9/L 08/21/2016 CBC 4027496 Mean Plt Volume 10.5 fL 08/21/2016 CBC 4643803 Neut Auto 56.4 % 08/21/2016 CBC 2291339 Lymph Auto 23.5 % 08/21/2016 CBC 5051487 [place] Auto 9.7 % 08/21/2016 CBC 3002989 Eos Auto 9.5 % 08/21/2016 CBC 5732927 RDW 16.6 % 08/21/2016 CBC 4609487 Baso Auto 0.9 % 08/21/2016 CBC 0532057 Neutrophil Abs 3.84 10e9/L 08/21/2016 CBC 5242330 Lymphocyte Abs 1.60 10e9/L 08/21/2016 CBC 7786792 Monocyte Abs 0.66 10e9/L 08/21/2016 CBC 0115459 Eosinophil Abs 0.65 10e9/L 08/21/2016 CBC 5566284 RDW-SD 49.7 fL 08/21/2016 CBC 6227537 Basophil Abs 0.06 10e9/L 08/21/2016 LIPID GRP CHOLESTEROL 211 mg/dL 08/21/2016 LIPID GRP Triglyceride 105 mg/dL 08/21/2016 LIPID GRP HDL CHOLESTEROL 45 mg/dL 08/21/2016 LIPID GRP Chol/HDL Ratio 4.69 ratio 08/21/2016 LIPID GRP NON-HDL Chol 166 mg/dL 08/21/2016 LIPID GRP LDL Cholesterol 145 mg/dL 08/21/2016 CHEM 14 7846467 AST 16 U/L 08/21/2016 CHEM 14 0834918 ALT 14 U/L 08/21/2016 CHEM 14 4293784 BUN 14 mg/dL 08/21/2016 CHEM 14 1243063 ALBUMIN 4.1 g/dL 08/21/2016 CHEM 14 2395382 CHLORIDE 105 mmol/L 08/21/2016 CHEM 14 8120469 Bili Total 0.5 mg/dL 08/21/2016 CHEM 14 5491914 ALK PHOS 53 U/L 08/21/2016 CHEM 14 5503686 SODIUM 141 mmol/L 08/21/2016 CHEM 14 0761176 CREATININE 0.66 mg/dL 08/21/2016 CHEM 14 2235415 CALCIUM 9.3 mg/dL 08/21/2016 CHEM 14 4546525 POTASSIUM 4.0 mmol/L 08/21/2016 CHEM 14 9572495 TOTAL PROTEIN 6.6 g/dL 08/21/2016 CHEM 14 8665300 GLUCOSE 145 mg/dL 08/21/2016 CHEM 14 3391156 Bicarbonate 29 mmol/L 08/21/2016 CHEM 14 4775071 AGAP 7 mmol/L 08/21/2016 A1C HPLC 2840849 Hgb A1c 73301-7 7.4 % 08/21/2016 GFR CALC 6475430 GFR Non Afr Amr >60 mL/min 08/21/2016 GFR CALC 1862266 GFR Afr Amr >60 mL/min 08/21/2016 TSH 9771248 TSH 1.485 uIU/mL 08/21/2016 FREE T4 2446660 T4 Free 1.39 ng/dL 08/21/2016 MEAN GLUC 5448067 Calc Mean Gluc 166 mg/dL 08/21/2016 Free T4 Uzd449 FREE T4 1.17 ng/dL 04/24/2016 Tsh Ord6 hTSH II 0.82 uIU/mL 04/24/2016 %Hba1C Pvs208 % HbA1c 05466- 6 7.5 % 04/24/2016 %Hba1C Xgx556 Gluc Ave 169 mg/dL 04/24/2016 Lipid Ord30 CHOL 208 mg/dL 04/24/2016 Lipid Ord30 HDL 42.0 mg/dl 04/24/2016 Lipid Ord30 TRIG 98 mg/dL 04/24/2016 Lipid Ord30 LDL 146 mg/dL 04/24/2016 Lipid Ord30 C/HDL 5.0 Ratio 04/24/2016 Comp Metabolic Yte889 NA 138 mEq/L 04/24/2016 Comp Metabolic Lat028 K 4.3 mEq/L 04/24/2016 Comp Metabolic Djp609 CL 103 mEq/L 04/24/2016 Comp Metabolic Xgi255 CO2 28.0 mEq/L 04/24/2016 Comp Metabolic Uod729 ANION GAP 11 04/24/2016 Comp Metabolic Eag774 GLUCOSE 138 mg/dL 04/24/2016 Comp Metabolic Wdf758 Creat 0.6 mg/dL 04/24/2016 Comp Metabolic Oxq670 eGFR 98 ml/min/1.73m2 04/24/2016 Comp Metabolic Lbz244 BUN 16 mg/dL 04/24/2016 Comp Metabolic Rdu620 B/C Ratio 25.4 Ratio 04/24/2016 Comp Metabolic Cpm081 CALCIUM 9.2 mg/dL 04/24/2016 Comp Metabolic Kbi718 ALK PHOS 55 U/L 04/24/2016 Comp Metabolic Zyf178 AST(SGOT) 16 U/L 04/24/2016 Comp Metabolic Zew958 ALT(SGPT) 16 U/L 04/24/2016 Comp Metabolic Fcq429 BILI T 0.6 mg/dL 04/24/2016 Comp Metabolic Lke110 ALBUMIN 3.9 g/dL 04/24/2016 Comp Metabolic Ucu313 TPRO 6.1 g/dL 04/24/2016 Comp Metabolic Tsu776 GLOB 2.2 g/dL 04/24/2016 Comp Metabolic Hdg460 A/G Ratio 1.7 Ratio 04/24/2016 Comp Metabolic Ryt475 Osmo 279 mOsmo 04/24/2016 Cbc With Differential Ord2 WBC 6.53 K/ul 04/24/2016 Cbc With Differential Ord2 RBC 4.73 M/ul 04/24/2016 Cbc With Differential Ord2 HGB 12.0 g/dl 04/24/2016 Cbc With Differential Ord2 Neut% 55.1 % 04/24/2016 Cbc With Differential Ord2 HCT 38.9 % 04/24/2016 Cbc With Differential Ord2 Lymph% 22.8 % 04/24/2016 Cbc With Differential Ord2 MCV 82.2 fl 04/24/2016 Cbc With Differential Ord2 MCH 25.4 pg 04/24/2016 Cbc With Differential Ord2 [place]% 10.9 % 04/24/2016 Cbc With Differential Ord2 MCHC 30.8 pg 04/24/2016 Cbc With Differential Ord2 Eos% 10.0 % 04/24/2016 Cbc With Differential Ord2 Baso% 1.2 % 04/24/2016 Cbc With Differential Ord2 PLT 338 K/ul 04/24/2016 Cbc With Differential Ord2 Neut ABS# 3.60 K/ul 04/24/2016 Cbc With Differential Ord2 RDW 16.7 % 04/24/2016 Cbc With Differential Ord2 Lymph ABS# 1.49 K/ul 04/24/2016 Cbc With Differential Ord2 [place] ABS# 0.7 K/ul 04/24/2016 Cbc With Differential Ord2 Eos ABS# 0.7 K/ul 04/24/2016 Cbc With Differential Ord2 Baso ABS# 0.1 K/ul 04/24/2016 Digoxin Ord9 DIGOXIN 0.9 NG/ML 02/03/2016 Free T4 Fuk699 FREE T4 1.17 ng/dL 12/07/2015 %Hba1C Lrj265 % HbA1c 44443- 6 7.5 % 12/07/2015 %Hba1C Ikm750 Gluc Ave 169 mg/dL 12/07/2015 Lipid Ord30 CHOL 196 mg/dL 12/07/2015 Lipid Ord30 HDL 41.0 mg/dl 12/07/2015 Lipid Ord30 TRIG 142 mg/dL 12/07/2015 Lipid Ord30 LDL 127 mg/dL 12/07/2015 Lipid Ord30 C/HDL 4.8 Ratio 12/07/2015 Comp Metabolic Mjr008 NA 139 mEq/L 12/07/2015 Comp Metabolic Asu621 K 4.3 mEq/L 12/07/2015 Comp Metabolic Dzh646 CL 101 mEq/L 12/07/2015 Comp Metabolic Tjq190 CO2 33.0 mEq/L 12/07/2015 Comp Metabolic Mgn020 ANION GAP 9 12/07/2015 Comp Metabolic Pbz309 GLUCOSE 159 mg/dL 12/07/2015 Comp Metabolic Avo262 Creat 0.6 mg/dL 12/07/2015 Comp Metabolic Dbv015 eGFR 108 ml/min/1.73m2 12/07/2015 Comp Metabolic Nvl723 BUN 13 mg/dL 12/07/2015 Comp Metabolic Ewf397 B/C Ratio 22.4 Ratio 12/07/2015 Comp Metabolic Ifb769 CALCIUM 9.0 mg/dL 12/07/2015 Comp Metabolic Tck047 ALK PHOS 60 U/L 12/07/2015 Comp Metabolic Dhw739 AST(SGOT) 16 U/L 12/07/2015 Comp Metabolic Rkn508 ALT(SGPT) 19 U/L 12/07/2015 Comp Metabolic Jhe429 BILI T 0.6 mg/dL 12/07/2015 Comp Metabolic Yzh792 ALBUMIN 4.0 g/dL 12/07/2015 Comp Metabolic Ipg581 TPRO 6.0 g/dL 12/07/2015 Comp Metabolic Qsx879 GLOB 2.0 g/dL 12/07/2015 Comp Metabolic Ops965 A/G Ratio 1.9 Ratio 12/07/2015 Comp Metabolic Ixp833 Osmo 281 mOsmo 12/07/2015 Tsh Ord6 hTSH II 0.90 uIU/mL 12/07/2015 Cbc With Differential Ord2 WBC 7.43 K/ul 12/07/2015 Cbc With Differential Ord2 RBC 4.70 M/ul 12/07/2015 Cbc With Differential Ord2 HGB 12.0 g/dl 12/07/2015 Cbc With Differential Ord2 HCT 39.1 % 12/07/2015 Cbc With Differential Ord2 Neut% 69.5 % 12/07/2015 Cbc With Differential Ord2 MCV 83.2 fl 12/07/2015 Cbc With Differential Ord2 Lymph% 16.6 % 12/07/2015 Cbc With Differential Ord2 MCH 25.5 pg 12/07/2015 Cbc With Differential Ord2 [place]% 9.3 % 12/07/2015 Cbc With Differential Ord2 [...] 1.23 K/ul 12/07/2015 Cbc With Differential Ord2 [place] ABS# 0.7 K/ul 12/07/2015 Cbc With Differential Ord2 Eos ABS# 0.3 K/ul 12/07/2015 Cbc With Differential Ord2 Baso ABS# 0.1 K/ul 12/07/2015 Cbc With Differential Ord2 WBC 5.8 [...] hTSH II 1.10 uIU/mL 06/14/2015 Free T4 Fnc874 FREE T4 1.31 ng/dL 06/14/2015 %Hba1C Ufv656 % HbA1c 21781- 6 6.8 % 06/14/2015 %Hba1C Bzn405 Gluc Ave 148 mg/dL 06/14/2015 A1C HPLC 7756436 A1C HPLC 61659-7 6.4 % 12/07/2014 TSH 8313676 TSH 1.106 uIU/ML 12/07/2014 CBC 1686584 WBC 6.4 10e9/L 12/07/2014 CBC 8193484 RBC 4.51 10e12/L 12/07/2014 CBC 2893955 HGB 12.2 g/dL 12/07/2014 CBC 2546631 HCT DET 39.0 % 12/07/2014 CBC 7166649 MCV 86.5 fL 12/07/2014 CBC 9793513 MCH 27.1 pg 12/07/2014 CBC 9693693 MCHC 31.3 g/dL 12/07/2014 CBC 1819884 PLT 325 10e9/L 12/07/2014 CBC 6448277 MPV 10.4 fL 12/07/2014 CBC 2527001 TIM % 62.0 % 12/07/2014 CBC 3737875 LY % 21.4 % 12/07/2014 CBC 7883132 MON % 9.5 % 12/07/2014 CBC 6234525 EOS % 6.3 % 12/07/2014 CBC 0499490 BASO % 0.8 % 12/07/2014 CBC 5847786 RDW 15.8 % 12/07/2014 CBC 3136168 ABS TIM 3.97 10e9/L 12/07/2014 CBC 4487345 ABS LYMPH 1.37 10e9/L 12/07/2014 CBC 8055963 ABS MONO 0.61 10e9/L 12/07/2014 CBC 4643508 ABS EOS 0.40 10e9/L 12/07/2014 CBC 6349736 ABS BASO 0.05 10e9/L 12/07/2014 CBC 6985468 RDW-SD 48.8 fL 12/07/2014 FREE T4 6115476 FREE T4 1.37 NG/DL 12/07/2014 CHEM 14 5094554 AST 14 U/L 12/07/2014 CHEM 14 5661547 ALT 12 IU/L 12/07/2014 CHEM 14 1331894 BUN 12 MG/DL 12/07/2014 CHEM 14 3751401 ALBUMIN 3.9 GM/DL 12/07/2014 CHEM 14 1460487 CHLORIDE 103 MMOL/L 12/07/2014 CHEM 14 4576962 BILI TOT 0.6 MG/DL 12/07/2014 CHEM 14 1121015 ALK PHOS 49 U/L 12/07/2014 CHEM 14 9282365 SODIUM 140 MMOL/L 12/07/2014 CHEM 14 1171284 CREATININE 0.57 MG/DL 12/07/2014 CHEM 14 9091964 CALCIUM 9.5 MG/DL 12/07/2014 CHEM 14 1483061 POTASSIUM 4.0 MMOL/L 12/07/2014 CHEM 14 3288520 PROT TOT 6.5 GM/DL 12/07/2014 CHEM 14 2536905 GLUCOSE 110 MG/DL 12/07/2014 CHEM 14 1022358 BICARB 29 MMOL/L 12/07/2014 CHEM 14 8063449 ANION GAP 8 MEQ/L 12/07/2014 LIPID GRP HDL TEST 46 MG/DL 12/07/2014 LIPID GRP TRIG 119 MG/DL 12/07/2014 LIPID GRP TEST LDL 108 MG/DL 12/07/2014 LIPID GRP CHOL 178 MG/DL 12/07/2014 LIPID GRP RCHOL/HDL 3.87 RATIO 12/07/2014 LIPID GRP NON-HDL CH 132 MG/DL 12/07/2014 GFR CALC 1214792 GFR AA >60 ML/MIN 12/07/2014 GFR CALC 5655640 GFR NON-AA >60 ML/MIN 12/07/2014 GFR CALC 0035328 GFR AA >60 ML/MIN 11/04/2013 GFR CALC 8230704 GFR NON-AA >60 ML/MIN 11/04/2013 A1C HPLC 3941518 A1C HPLC 41983-2 7.2 % 11/04/2013 LIPID GRP HDL TEST 45 MG/DL 11/04/2013 LIPID GRP TRIG 104 MG/DL 11/04/2013 LIPID GRP TEST LDL 82 MG/DL 11/04/2013 LIPID GRP CHOL 148 MG/DL 11/04/2013 LIPID GRP RCHOL/HDL 3.29 RATIO 11/04/2013 CBC 6672536 WBC 6.2 10e9/L 11/04/2013 CBC 2816522 RBC 4.38 10e12/L 11/04/2013 CBC 7739904 HGB 11.8 g/dL 11/04/2013 CBC 1282781 HCT DET 37.5 % 11/04/2013 CBC 2361409 MCV 85.6 fL 11/04/2013 CBC 7876431 MCH 26.9 pg 11/04/2013 CBC 6632178 MCHC 31.5 g/dL 11/04/2013 CBC 0549020 PLT 330 10e9/L 11/04/2013 CBC 2858293 MPV 10.6 fL 11/04/2013 CBC 8590390 TIM % 60.8 % 11/04/2013 CBC 7883358 LY % 22.1 % 11/04/2013 CBC 6758870 MON % 9.6 % 11/04/2013 CBC 4337497 EOS % 6.4 % 11/04/2013 CBC 5277366 BASO % 1.1 % 11/04/2013 CBC 0388725 RDW 15.6 % 11/04/2013 CBC 0658532 ABS TIM 3.77 10e9/L 11/04/2013 CBC [id number] ABS LYMPH 1.37 10e9/L 11/04/2013 CBC 7259013 ABS MONO 0.60 10e9/L 11/04/2013 CBC 7182048 ABS EOS 0.40 10e9/L 11/04/2013 CBC 8457844 ABS BASO 0.07 10e9/L 11/04/2013 CBC 5291428 RDW-SD 48.0 fL 11/04/2013 DIGOXIN 7866462 DIGOXIN 0.5 NG/ML 11/04/2013 CHEM 14 2319658 AST 17 U/L 11/04/2013 CHEM 14 2223092 ALT 16 IU/L 11/04/2013 CHEM 14 6600205 BUN 13 MG/DL 11/04/2013 CHEM 14 9071738 ALBUMIN 4.3 GM/DL 11/04/2013 CHEM 14 1804859 CHLORIDE 104 MMOL/L 11/04/2013 CHEM 14 3542051 BILI TOT 0.7 MG/DL 11/04/2013 CHEM 14 3391016 ALK PHOS 67 U/L 11/04/2013 CHEM 14 1486506 SODIUM 140 MMOL/L 11/04/2013 CHEM 14 6847168 CREATININE 0.64 MG/DL 11/04/2013 CHEM 14 2016662 CALCIUM 9.5 MG/DL 11/04/2013 CHEM 14 0127237 POTASSIUM 4.0 MMOL/L 11/04/2013 CHEM 14 0843241 PROT TOT 6.1 GM/DL 11/04/2013 CHEM 14 5976920 GLUCOSE 157 MG/DL 11/04/2013 CHEM 14 2537094 BICARB 27 MMOL/L 11/04/2013 CHEM 14 6198612 ANION GAP 9 MEQ/L 11/04/2013 FREE T4 1251077 FREE T4 1.44 NG/DL 11/04/2013 TSH 9193414 TSH 0.841 uIU/ML 11/04/2013 A1C HPLC 9234942 A1C HPLC 41145-2 7.6 % 07/28/2013 GFR CALC 9361268 GFR AA >60 ML/MIN 07/28/2013 GFR CALC 9880096 GFR NON-AA >60 ML/MIN 07/28/2013 LIPID GRP HDL TEST 38 MG/DL 07/28/2013 LIPID GRP TRIG 137 MG/DL 07/28/2013 LIPID GRP TEST LDL 73 MG/DL 07/28/2013 LIPID GRP CHOL 138 MG/DL 07/28/2013 LIPID GRP RCHOL/HDL 3.63 RATIO 07/28/2013 CBC 0082874 WBC 7.2 10e9/L 07/28/2013 CBC 7622959 RBC 4.65 10e12/L 07/28/2013 CBC 8858864 HGB 12.6 g/dL 07/28/2013 CBC 9595471 HCT DET 39.6 % 07/28/2013 CBC 4081168 MCV 85.2 fL 07/28/2013 CBC 5041347 MCH 27.1 pg 07/28/2013 CBC 8645270 MCHC 31.8 g/dL 07/28/2013 CBC 5847226 PLT 344 10e9/L 07/28/2013 CBC 2698106 MPV 10.7 fL 07/28/2013 CBC 2334425 TIM % 61.4 % 07/28/2013 CBC 4969736 LY % 22.4 % 07/28/2013 CBC 2449013 MON % 8.4 % 07/28/2013 CBC 0957058 EOS % 6.8 % 07/28/2013 CBC 9875640 BASO % 1.0 % 07/28/2013 CBC 8587656 RDW 15.5 % 07/28/2013 CBC 4624895 ABS TIM 4.42 10e9/L 07/28/2013 CBC 6059490 ABS LYMPH 1.61 10e9/L 07/28/2013 CBC 9985452 ABS MONO 0.60 10e9/L 07/28/2013 CBC 1948542 ABS EOS 0.49 10e9/L 07/28/2013 CBC 6705073 ABS BASO 0.07 10e9/L 07/28/2013 CBC 0765789 RDW-SD 47.2 fL 07/28/2013 CHEM 14 9019916 AST 20 U/L 07/28/2013 CHEM 14 3277929 ALT 19 IU/L 07/28/2013 CHEM 14 7177589 BUN 13 MG/DL 07/28/2013 CHEM 14 5585530 ALBUMIN 4.1 GM/DL 07/28/2013 CHEM 14 7698566 CHLORIDE 102 MMOL/L 07/28/2013 CHEM 14 7138832 BILI TOT 0.7 MG/DL 07/28/2013 CHEM 14 3909446 ALK PHOS 62 U/L 07/28/2013 CHEM 14 5045404 SODIUM 139 MMOL/L 07/28/2013 CHEM 14 7063296 CREATININE 0.66 MG/DL 07/28/2013 CHEM 14 9177156 CALCIUM 9.3 MG/DL 07/28/2013 CHEM 14 9798726 POTASSIUM 4.4 MMOL/L 07/28/2013 CHEM 14 0209934 PROT TOT 6.2 GM/DL 07/28/2013 CHEM 14 2162304 GLUCOSE 160 MG/DL 07/28/2013 CHEM 14 0860560 BICARB 29 MMOL/L 07/28/2013 CHEM 14 7425631 ANION GAP 8 MEQ/L 07/28/2013 LIVER PNL 8937384 BILI DIR 0.2 MG/DL 07/28/2013 DIGOXIN 5818983 DIGOXIN 0.4 NG/ML 07/28/2013 DIGOXIN 1035719 DIGOXIN 0.6 NG/ML 05/12/2013 CBC 8660327 WBC 7.4 10e9/L 04/29/2013 CBC 6454859 RBC 4.70 10e12/L 04/29/2013 CBC 4395364 HGB 12.8 g/dL 04/29/2013 CBC 9409920 HCT DET 40.1 % 04/29/2013 CBC 3989066 MCV 85.3 fL 04/29/2013 CBC 1990275 MCH 27.2 pg 04/29/2013 CBC 4373960 MCHC 31.9 g/dL 04/29/2013 CBC 6437069 PLT 312 10e9/L 04/29/2013 CBC 8746925 MPV 10.4 fL 04/29/2013 CBC 1662851 TIM % 64.9 % 04/29/2013 CBC 5071751 LY % 20.0 % 04/29/2013 CBC 4637045 MON % 8.6 % 04/29/2013 CBC 5315412 EOS % 5.3 % 04/29/2013 CBC 0203904 BASO % 1.2 % 04/29/2013 CBC 1266173 RDW 15.4 % 04/29/2013 CBC 2156847 ABS TIM 4.80 10e9/L 04/29/2013 CBC 7190225 ABS LYMPH 1.48 10e9/L 04/29/2013 CBC 8236550 ABS MONO 0.64 10e9/L 04/29/2013 CBC 3890359 ABS EOS 0.39 10e9/L 04/29/2013 CBC 9138841 ABS BASO 0.09 10e9/L 04/29/2013 CBC 8910867 RDW-SD 47.3 fL 04/29/2013 CHEM 14 0026630 AST 14 U/L 04/29/2013 CHEM 14 9470017 ALT 14 IU/L 04/29/2013 CHEM 14 7584422 BUN 13 MG/DL 04/29/2013 CHEM 14 2267342 ALBUMIN 4.1 GM/DL 04/29/2013 CHEM 14 8757879 CHLORIDE 102 MMOL/L 04/29/2013 CHEM 14 1551018 BILI TOT 0.7 MG/DL 04/29/2013 CHEM 14 3002937 ALK PHOS 75 U/L 04/29/2013 CHEM 14 1392420 SODIUM 139 MMOL/L 04/29/2013 CHEM 14 8950798 CREATININE 0.62 MG/DL 04/29/2013 CHEM 14 6911446 CALCIUM 9.3 MG/DL 04/29/2013 CHEM 14 8245564 POTASSIUM 4.0 MMOL/L 04/29/2013 CHEM 14 3304979 PROT TOT 6.5 GM/DL 04/29/2013 CHEM 14 9115812 GLUCOSE 152 MG/DL 04/29/2013 CHEM 14 5902523 BICARB 31 MMOL/L 04/29/2013 CHEM 14 0564635 ANION GAP 6 MEQ/L 04/29/2013 TSH 6807936 TSH 1.161 uIU/ML 04/29/2013 GFR CALC 2486829 GFR AA >60 ML/MIN 04/29/2013 GFR CALC 0135965 GFR NON-AA >60 ML/MIN 04/29/2013 A1C 6523084 A1C HPLC 35628- 6 7.5 % 04/29/2013 LIPID GRP HDL TEST 43 MG/DL 04/29/2013 LIPID GRP TRIG 111 MG/DL 04/29/2013 LIPID GRP TEST LDL 65 MG/DL 04/29/2013 LIPID GRP CHOL 130 MG/DL 04/29/2013 LIPID GRP RCHOL/HDL 3.02 RATIO 04/29/2013 A1C 1573456 A1C HPLC 42269- 6 7.2 % 12/28/2012 TSH 2483979 TSH 1.406 uIU/ML 12/28/2012 CHEM 14 6167120 AST 14 U/L 12/27/2012 CHEM 14 5762105 ALT 13 IU/L 12/27/2012 CHEM 14 3364981 BUN 13 MG/DL 12/27/2012 CHEM 14 9943226 ALBUMIN 4.5 GM/DL 12/27/2012 CHEM 14 7584193 CHLORIDE 105 MMOL/L 12/27/2012 CHEM 14 6940296 BILI TOT 0.8 MG/DL 12/27/2012 CHEM 14 7943296 ALK PHOS 69 U/L 12/27/2012 CHEM 14 2175510 SODIUM 142 MMOL/L 12/27/2012 CHEM 14 0734027 CREATININE 0.73 MG/DL 12/27/2012 CHEM 14 9043295 CALCIUM 9.7 MG/DL 12/27/2012 CHEM 14 3338616 POTASSIUM 4.1 MMOL/L 12/27/2012 CHEM 14 4716463 PROT TOT 6.8 GM/DL 12/27/2012 CHEM 14 4103221 GLUCOSE 133 MG/DL 12/27/2012 CHEM 14 5800097 BICARB 30 MMOL/L 12/27/2012 CHEM 14 5482080 ANION GAP 7 MEQ/L 12/27/2012 LIPID GRP HDL TEST 54 MG/DL 12/27/2012 LIPID GRP TRIG 94 MG/DL 12/27/2012 LIPID GRP TEST LDL 42 MG/DL 12/27/2012 LIPID GRP CHOL 115 MG/DL 12/27/2012 LIPID GRP RCHOL/HDL 2.13 RATIO 12/27/2012 GFR CALC 5821174 GFR AA >60 ML/MIN 12/27/2012 GFR CALC 0336171 GFR NON-AA >60 ML/MIN 12/27/2012 CBC 2366466 WBC 6.8 10e9/L 12/27/2012 CBC 5545340 RBC 4.72 10e12/L 12/27/2012 CBC 5907806 HGB 12.5 g/dL 12/27/2012 CBC 6333537 HCT DET 39.6 % 12/27/2012 CBC 3548881 MCV 83.9 fL 12/27/2012 CBC 7460578 MCH 26.5 pg 12/27/2012 CBC 3045778 MCHC 31.6 g/dL 12/27/2012 CBC 8152882 PLT 336 10e9/L 12/27/2012 CBC 9371238 MPV 10.4 fL 12/27/2012 CBC 2305772 TIM % 60.7 % 12/27/2012 CBC 6153409 LY % 24.6 % 12/27/2012 CBC 9856021 MON % 8.4 % 12/27/2012 CBC 2552845 EOS % 5.3 % 12/27/2012 CBC 6318845 BASO % 1.0 % 12/27/2012 CBC 2699363 RDW 16.6 % 12/27/2012 CBC 0416051 ABS TIM 4.13 10e9/L 12/27/2012 CBC 0165811 ABS LYMPH 1.67 10e9/L 12/27/2012 CBC 6400354 ABS MONO 0.57 10e9/L 12/27/2012 CBC 6724359 ABS EOS 0.36 10e9/L 12/27/2012 CBC 2656373 ABS BASO 0.07 10e9/L 12/27/2012 CBC 2520989 RDW-SD 50.1 fL 12/27/2012 A1C HPLC 6777115 A1C HPLC 13309-3 7.3 % 08/27/2012 TSH 6258536 TSH 0.933 uIU/ML 08/27/2012 LIPID GRP HDL TEST 41 MG/DL 08/27/2012 LIPID GRP TRIG 120 MG/DL 08/27/2012 LIPID GRP TEST LDL 67 MG/DL 08/27/2012 LIPID GRP CHOL 132 MG/DL 08/27/2012 LIPID GRP RCHOL/HDL 3.22 RATIO 08/27/2012 CBC 8023017 WBC 7.8 10e9/L 08/27/2012 CBC 9335203 RBC 4.54 10e12/L 08/27/2012 CBC 1485154 HGB 12.0 g/dL 08/27/2012 CBC 3062832 HCT DET 37.9 % 08/27/2012 CBC 0301725 MCV 83.5 fL 08/27/2012 CBC 6058842 MCH 26.4 pg 08/27/2012 CBC 7262653 MCHC 31.7 g/dL 08/27/2012 CBC 0921734 PLT 370 10e9/L 08/27/2012 CBC 1609605 MPV 10.7 fL 08/27/2012 CBC 9368659 TIM % 65.7 % 08/27/2012 CBC 1140620 LY % 19.5 % 08/27/2012 CBC 0196832 MON % 9.0 % 08/27/2012 CBC 5853473 EOS % 5.0 % 08/27/2012 CBC 8478782 BASO % 0.8 % 08/27/2012 CBC 3461427 RDW 15.4 % 08/27/2012 CBC 2676727 ABS TIM 5.12 10e9/L 08/27/2012 CBC 5576887 ABS LYMPH 1.52 10e9/L 08/27/2012 CBC 7808977 ABS MONO 0.70 10e9/L 08/27/2012 CBC 1541510 ABS EOS 0.39 10e9/L 08/27/2012 CBC 4044434 ABS BASO 0.06 10e9/L 08/27/2012 CBC 1211384 RDW-SD 46.3 fL 08/27/2012 FREE T4 7323523 FREE T4 1.36 NG/DL 08/27/2012 CHEM 14 0747263 AST 15 U/L 08/27/2012 CHEM 14 9923372 ALT 17 IU/L 08/27/2012 CHEM 14 7094374 BUN 14 MG/DL 08/27/2012 CHEM 14 2185468 ALBUMIN 4.2 GM/DL 08/27/2012 CHEM 14 1346749 CHLORIDE 103 MMOL/L 08/27/2012 CHEM 14 4416283 BILI TOT 0.6 MG/DL 08/27/2012 CHEM 14 4831258 ALK PHOS 86 U/L 08/27/2012 CHEM 14 8261629 SODIUM 141 MMOL/L 08/27/2012 CHEM 14 4817180 CREATININE 0.64 MG/DL 08/27/2012 CHEM 14 9946490 CALCIUM 9.5 MG/DL 08/27/2012 CHEM 14 9960361 POTASSIUM 4.1 MMOL/L 08/27/2012 CHEM 14 6506895 PROT TOT 6.1 GM/DL 08/27/2012 CHEM 14 5446254 GLUCOSE 151 MG/DL 08/27/2012 CHEM 14 7933122 BICARB 30 MMOL/L 08/27/2012 CHEM 14 8858276 ANION GAP 8 MEQ/L 08/27/2012 GFR CALC 8951004 GFR AA >60 ML/MIN 08/27/2012 GFR CALC 7124532 GFR NON-AA >60 ML/MIN 08/27/2012 DIGOXIN 4742455 DIGOXIN 1.4 NG/ML 07/15/2012 CBC 0150266 WBC 6.3 10e9/L 07/15/2012 CBC 7531528 RBC 4.44 10e12/L 07/15/2012 CBC 4175811 HGB 11.8 g/dL 07/15/2012 CBC 8311512 HCT DET 36.9 % 07/15/2012 CBC 1007462 MCV 83.1 fL 07/15/2012 CBC 6404589 MCH 26.6 pg 07/15/2012 CBC 3840613 MCHC 32.0 g/dL 07/15/2012 CBC 3525671 PLT 316 10e9/L 07/15/2012 CBC 2631541 MPV 10.3 fL 07/15/2012 CBC 6653513 TIM % 64.4 % 07/15/2012 CBC 3693674 LY % 19.6 % 07/15/2012 CBC 9115748 MON % 9.1 % 07/15/2012 CBC 6541668 EOS % 6.1 % 07/15/2012 CBC 1327151 BASO % 0.8 % 07/15/2012 CBC 4197064 RDW 15.3 % 07/15/2012 CBC 6603899 ABS TIM 4.06 10e9/L 07/15/2012 CBC 1808437 ABS LYMPH 1.23 10e9/L 07/15/2012 CBC 6048386 ABS MONO 0.57 10e9/L 07/15/2012 CBC 3995238 ABS EOS 0.38 10e9/L 07/15/2012 CBC 8817446 ABS BASO 0.05 10e9/L 07/15/2012 CBC 5024840 RDW-SD 46.2 fL 07/15/2012 BMP 5018286 GLUCOSE 137 MG/DL 07/04/2012 BMP 0145370 CREATININE 0.86 MG/DL 07/04/2012 BMP 4094268 BUN 14 MG/DL 07/04/2012 BMP 8428253 SODIUM 140 MMOL/L 07/04/2012 BMP 8541508 POTASSIUM 4.5 MMOL/L 07/04/2012 BMP 5653453 CHLORIDE 103 MMOL/L 07/04/2012 BMP 7535925 BICARB 28 MMOL/L 07/04/2012 BMP 9883061 ANION GAP 9 MEQ/L 07/04/2012 BMP 3194754 CALCIUM 9.7 MG/DL 07/04/2012 DIGOXIN 2475510 DIGOXIN 1.4 NG/ML 07/04/2012 CBC 9411709 WBC 6.9 10e9/L 07/04/2012 CBC 2943852 RBC 4.56 10e12/L 07/04/2012 CBC 1427262 HGB 12.2 g/dL 07/04/2012 CBC 1263777 HCT DET 38.1 % 07/04/2012 CBC 7794092 MCV 83.6 fL 07/04/2012 CBC 7730040 MCH 26.8 pg 07/04/2012 CBC 5658310 MCHC 32.0 g/dL 07/04/2012 CBC 0770369 PLT 382 10e9/L 07/04/2012 CBC 0223054 MPV 10.6 fL 07/04/2012 CBC 1654647 TIM % 58.7 % 07/04/2012 CBC 4414423 LY % 23.7 % 07/04/2012 CBC 5987204 MON % 10.2 % 07/04/2012 CBC 0916209 EOS % 6.4 % 07/04/2012 CBC 5382665 BASO % 1.0 % 07/04/2012 CBC 6555146 RDW 15.8 % 07/04/2012 CBC 3072377 ABS TIM 4.05 10e9/L 07/04/2012 CBC 9764415 ABS LYMPH 1.64 10e9/L 07/04/2012 CBC 8283284 ABS MONO 0.70 10e9/L 07/04/2012 CBC 9124446 ABS EOS 0.44 10e9/L 07/04/2012 CBC 8710762 ABS BASO 0.07 10e9/L 07/04/2012 CBC 1787745 RDW-SD 47.5 fL 07/04/2012 GFR CALC 7657544 GFR AA >60 ML/MIN 07/04/2012 GFR CALC 2355741 GFR NON-AA >60 ML/MIN 07/04/2012 A1C HPLC 5270811 A1C HPLC 08303-7 7.1 % 03/27/2012 CHEM 14 3443948 AST 18 U/L 03/26/2012 CHEM 14 7683576 ALT 17 IU/L 03/26/2012 CHEM 14 4412326 BUN 16 MG/DL 03/26/2012 CHEM 14 1708401 ALBUMIN 4.3 GM/DL 03/26/2012 CHEM 14 9864457 CHLORIDE 103 MMOL/L 03/26/2012 CHEM 14 8101230 BILI TOT 0.9 MG/DL 03/26/2012 CHEM 14 4312211 ALK PHOS 79 U/L 03/26/2012 CHEM 14 1322315 SODIUM 140 MMOL/L 03/26/2012 CHEM 14 1608101 CREATININE 0.70 MG/DL 03/26/2012 CHEM 14 8604049 CALCIUM 9.6 MG/DL 03/26/2012 CHEM 14 3420880 POTASSIUM 4.1 MMOL/L 03/26/2012 CHEM 14 9570350 PROT TOT 6.3 GM/DL 03/26/2012 CHEM 14 8064432 GLUCOSE 142 MG/DL 03/26/2012 CHEM 14 4289868 BICARB 29 MMOL/L 03/26/2012 CHEM 14 5482422 ANION GAP 8 MEQ/L 03/26/2012 FREE T4 6029641 FREE T4 1.30 NG/DL 03/26/2012 GFR CALC 6856293 GFR AA >60 ML/MIN 03/26/2012 GFR CALC 7073826 GFR NON-AA >60 ML/MIN 03/26/2012 LIPID GRP HDL TEST 40 MG/DL 03/26/2012 LIPID GRP TRIG 93 MG/DL 03/26/2012 LIPID GRP TEST LDL 62 MG/DL 03/26/2012 LIPID GRP CHOL 121 MG/DL 03/26/2012 LIPID GRP RCHOL/HDL 3.03 RATIO 03/26/2012 TSH 2245550 TSH 0.842 uIU/ML 03/26/2012 CBC 5905832 WBC 5.3 10e9/L 03/26/2012 CBC 6620530 RBC 4.70 10e12/L 03/26/2012 CBC 2399821 HGB 12.1 g/dL 03/26/2012 CBC 8157878 HCT DET 38.1 % 03/26/2012 CBC 0633224 MCV 81.1 fL 03/26/2012 CBC 5231449 MCH 25.7 pg 03/26/2012 CBC 2006378 MCHC 31.8 g/dL 03/26/2012 CBC 7382306 PLT 315 10e9/L 03/26/2012 CBC 9989839 MPV 10.9 fL 03/26/2012 CBC 2456568 TIM % 54.8 % 03/26/2012 CBC 0731422 LY % 25.8 % 03/26/2012 CBC 4116949 MON % 11.6 % 03/26/2012 CBC 4310588 EOS % 7.0 % 03/26/2012 CBC 6414985 BASO % 0.8 % 03/26/2012 CBC 2575440 RDW 16.7 % 03/26/2012 CBC 4927773 ABS TIM 2.90 10e9/L 03/26/2012 CBC 2498156 ABS LYMPH 1.37 10e9/L 03/26/2012 CBC 2386384 ABS MONO 0.61 10e9/L 03/26/2012 CBC 5713461 ABS EOS 0.37 10e9/L 03/26/2012 CBC 9532002 ABS BASO 0.04 10e9/L 03/26/2012 CBC 5253532 RDW-SD 48.8 fL 03/26/2012 CHEM 14 4828205 AST 24 U/L 01/08/2012 CHEM 14 1350110 ALT 28 IU/L 01/08/2012 CHEM 14 0228804 BUN 15 MG/DL 01/08/2012 CHEM 14 0413037 ALBUMIN 4.3 GM/DL 01/08/2012 CHEM 14 3965911 CHLORIDE 104 MMOL/L 01/08/2012 CHEM 14 7749893 BILI TOT 0.6 MG/DL 01/08/2012 CHEM 14 6491258 ALK PHOS 83 U/L 01/08/2012 CHEM 14 2196441 SODIUM 141 MMOL/L 01/08/2012 CHEM 14 7083002 CREATININE 0.64 MG/DL 01/08/2012 CHEM 14 0976780 CALCIUM 9.4 MG/DL 01/08/2012 CHEM 14 2906677 POTASSIUM 4.0 MMOL/L 01/08/2012 CHEM 14 0910029 PROT TOT 6.7 GM/DL 01/08/2012 CHEM 14 2013354 GLUCOSE 145 MG/DL 01/08/2012 CHEM 14 8719200 BICARB 28 MMOL/L 01/08/2012 CHEM 14 1609284 ANION GAP 9 MEQ/L 01/08/2012 LIPID GRP HDL TEST 42 MG/DL 01/08/2012 LIPID GRP TRIG 105 MG/DL 01/08/2012 LIPID GRP TEST LDL 51 MG/DL 01/08/2012 LIPID GRP CHOL 114 MG/DL 01/08/2012 LIPID GRP RCHOL/HDL 2.71 RATIO 01/08/2012 CBC 4573369 WBC 5.8 10e9/L 01/08/2012 CBC 4746864 RBC 4.36 10e12/L 01/08/2012 CBC 0364469 HGB 11.6 g/dL 01/08/2012 CBC 0429628 HCT DET 37.4 % 01/08/2012 CBC 1928454 MCV 85.8 fL 01/08/2012 CBC 8771650 MCH 26.6 pg 01/08/2012 CBC 1170176 MCHC 31.0 g/dL 01/08/2012 CBC 4594765 PLT 319 10e9/L 01/08/2012 CBC 8455544 MPV 10.5 fL 01/08/2012 CBC 2232476 TIM % 62.2 % 01/08/2012 CBC 9168452 LY % 20.7 % 01/08/2012 CBC 7580712 MON % 9.3 % 01/08/2012 CBC 7913236 EOS % 6.4 % 01/08/2012 CBC 3675426 BASO % 1.4 % 01/08/2012 CBC 4710837 RDW 14.9 % 01/08/2012 CBC 1958569 ABS TIM 3.61 10e9/L 01/08/2012 CBC 4555658 ABS LYMPH 1.20 10e9/L 01/08/2012 CBC 6852358 ABS MONO 0.54 10e9/L 01/08/2012 CBC 3372513 ABS EOS 0.37 10e9/L 01/08/2012 CBC 2297129 ABS BASO 0.08 10e9/L 01/08/2012 CBC 7602358 RDW-SD 44.9 fL 01/08/2012 GFR CALC 2090180 GFR AA >60 ML/MIN 01/08/2012 GFR CALC 4617443 GFR NON-AA >60 ML/MIN 01/08/2012 A1C HPLC 5276011 A1C HPLC 73597-1 7.2 % 01/08/2012 Review of Systems System [...] accomodation 08/11/2013 None Full Exam - General 1995 Ears/Nose/Throat otoscopic exam Overall: external auditory canals clear 08/11/2013 None Full Exam - General 1995 Ears/Nose/Throat [...] chest and neck Full Exam - General 1994 Abdomen abdominal exam Overall: normal bowel sounds 07/15/2012 None Full Exam - General 1994 Musculoskeletal head and neck Overall: head atraumatic 07/15/2012 None Full Exam - General 1994 Musculoskeletal head and neck Overall: cervical spine benign 07/15/2012 None Full Exam - General 1994 Neurologic gait Overall: no ataxia, no unsteadiness 07/15/2012 None Full Exam - General 1995 Psychiatric orientation/consciousness Overall: oriented to person, place and time 07/15/2012 None Full Exam - General 1995 Psychiatric mood and affect Overall: normal mood and affect 07/15/2012 None Full Exam - General 1994 Constitutional general appearance Overall: well developed 07/15/2012 None Full Exam - General 1994 Constitutional general appearance Overall: in no acute distress 07/15/2012 None Full Exam - General 1994 Constitutional general appearance Overall: well nourished 07/15/2012 [...] sounds 05/02/2012 None Full Exam - General 1995 Musculoskeletal [...] clear 05/22/2011 None Full Exam - General [facility] Psychiatric orientation/consciousness Overall: oriented to person, place [...] Procedure Codes Date THER/PROPH/DIAG INJ SC/IM CPT-4: 44766Ffphikb 09/04/2016 TRIAMCINOLONE ACET INJ NOS CPT-4: Z4838Ileccmg 09/04/2016 THER/PROPH/DIAG INJ SC/IM CPT-4: 57217Jsitxgi 11/11/2015 TRIAMCINOLONE ACET INJ NOS CPT-4: Z0729Bheiigt 11/11/2015 TRIAMCINOLONE ACET INJ NOS CPT-4: N1416Kejfmzc 10/25/2015 THER/PROPH/DIAG INJ SC/IM CPT-4: 70808Xvaxbpq 10/25/2015 THER/PROPH/DIAG INJ SC/IM CPT-4: 07686Txsdcto 08/17/2014 TRIAMCINOLONE ACET INJ NOS CPT-4: F8208Fhbbsnq 08/17/2014 TRIAMCINOLONE ACET INJ NOS CPT-4: C8717Mhdwnxg 04/13/2014 THER/PROPH/DIAG INJ SC/IM CPT-4: 77311Tqdhknj 04/13/2014 ROUTINE VENIPUNCTURE CPT-4: 97387Uzvhnxt 11/04/2013 ROUTINE VENIPUNCTURE CPT-4: 85529Cwiapji 05/12/2013 ADMIN INFLUENZA VIRUS VAC CPT-4: O6401Sodsvqt 05/12/2013 FLULAVAL VACC, 3 YRS & >, IM CPT-4: D9664Ybcjktp 05/12/2013 TRIAMCINOLONE ACET INJ NOS CPT-4: K4126Tcbrvea 10/07/2012 THER/PROPH/DIAG INJ SC/IM CPT-4: 93715Ncynxuq 10/07/2012 ROUTINE VENIPUNCTURE CPT-4: 26434Pflchne 08/27/2012 ROUTINE VENIPUNCTURE CPT-4: 32822Mxvsntl 07/15/2012 ROUTINE VENIPUNCTURE CPT-4: 26158Rkmfgml 03/26/2012 ADMIN INFLUENZA VIRUS VAC CPT-4: N1350Jznoret 03/26/2012 FLULAVAL VACC, 3 YRS & >, IM CPT-4: L1807Vbegloa 03/26/2012 Pneumococcal Polysaccharide Vaccine, 23-Valent, Ad CPT-4: 62454Dlkxhnt 03/26/2012 ROUTINE VENIPUNCTURE CPT-4: 66647Mmwyczg 01/08/2012 ROUTINE VENIPUNCTURE CPT-4: 51960Phwjycs 11/06/2011 ROUTINE VENIPUNCTURE CPT-4: 93963Vmuosey 10/25/2011 ROUTINE VENIPUNCTURE CPT-4: 66339Fgijsjx 10/16/2011 ROUTINE VENIPUNCTURE CPT-4: 68112Uxtjdtr 09/25/2011 INJ TRIGGER POINT 1/2 MUSCL CPT-4: 29856Lnyjiwp 07/31/2011 TRIAMCINOLONE ACET INJ NOS CPT-4: U7051Dygxffx 07/31/2011 PRESCRIP TRANSMIT VIA ERX SY CPT-4: E1915Axynmlu 05/22/2011 ADMIN INFLUENZA VIRUS VAC CPT-4: L6222Ixnqaof 05/02/2011 FLULAVAL VACC, 3 YRS & >, IM CPT-4: T8464Fmhxtsm 05/02/2011 ROUTINE VENIPUNCTURE CPT-4: 32701Fnqufxa 05/02/2011 Vital Signs Date Vital 11/01/2016 Blood Pressure 1: 150/84 Code: 8480-6 BMI: 29.1 Code: 69556-5 Heart Rate 1: 71 bpm Height: 5'1" SpO2: 97% Weight: 154 lbs 10/18/2016 Blood Pressure 1: 156/98 Code: 8480-6 Heart Rate 1: 68 bpm Height: 5'1" SpO2: 98% Weight: 10/12/2016 Blood Pressure 1: 142/76 Code: 8480-6 BMI: 30.0 Code: 24485-5 Heart Rate 1: 76 bpm Height: 5'1" SpO2: 95% Weight: 159 lbs 09/04/2016 Blood Pressure 1: 120/70 Code: 8480-6 Blood Pressure 1: 148/84 Code: 8480-6 BMI: 30.0 Code: 92567-5 Heart Rate 1: 72 bpm Height: 5'1" SpO2: 94% Weight: 159 lbs 05/30/2016 Blood Pressure 1: 152/84 Code: 8480-6 BMI: 29.9 Code: 84541-1 Heart Rate 1: 76 bpm Height: 5'1" SpO2: 97% Weight: 158 lbs 8 oz 05/01/2016 Blood Pressure 1: 146/60 Code: 8480-6 BMI: 29.9 Code: 69048-9 Heart Rate 1: 72 bpm Height: 5'1" SpO2: 97% Weight: 158 lbs 02/29/2016 Blood Pressure 1: 152/82 Code: 8480-6 BMI: 30.4 Code: 67930-2 Heart Rate 1: 71 bpm Height: 5'1" SpO2: 96% Weight: 161 lbs 02/03/2016 Blood Pressure 1: 148/88 Code: 8480-6 BMI: 30.6 Code: 78084-5 Heart Rate 1: 72 bpm Height: 5'1" SpO2: 98% Weight: 162 lbs 12/21/2015 Blood Pressure 1: 180/78 Code: 8480-6 BMI: 30.9 Code: 73833-1 Heart Rate 1: 64 bpm Height: 5'1" SpO2: 97% Weight: 163 lbs 8 oz 10/25/2015 Blood Pressure 1: 150/78 Code: 8480-6 BMI: 31.0 Code: 44673-7 Heart Rate 1: 73 bpm Height: 5'1" SpO2: 98% Weight: 164 lbs 10/19/2015 Blood Pressure 1: 122/72 Code: 8480-6 BMI: 31.6 Code: 30385-0 Heart Rate 1: 88 bpm Height: 5'1" SpO2: 98% Weight: 167 lbs 06/22/2015 Blood Pressure 1: 150/82 Code: 8480-6 BMI: 31.4 Code: 67805-1 Heart Rate 1: 86 bpm Height: 5'1" SpO2: 96% Weight: 166 lbs 12/22/2014 Blood Pressure 1: 160/92 Code: 8480-6 BMI: 31.2 Code: 00368-5 Heart Rate 1: 85 bpm Height: 5'1" SpO2: 97% Weight: 165 lbs 08/17/2014 Blood Pressure 1: 138/80 Code: 8480-6 BMI: 31.6 Code: 38197-7 Heart Rate 1: 77 bpm Height: 5'1" SpO2: 97% Weight: 167 lbs 04/13/2014 Blood Pressure 1: 144/88 Code: 8480-6 BMI: 31.6 Code: 34714-9 Heart Rate 1: 90 bpm Height: 5'1" Weight: 167 lbs 12/11/2013 Blood Pressure 1: 168/90 Code: 8480-6 BMI: 32.3 Code: 07486-4 Heart Rate 1: 72 bpm Height: 5'1" Weight: 171 lbs 11/10/2013 Blood Pressure 1: 150/80 Code: 8480-6 BMI: 32.3 Code: 69815-1 Heart Rate 1: 76 bpm Height: 5'1" Weight: 171 lbs 08/11/2013 Blood Pressure 1: 152/80 Code: 8480-6 BMI: 32.5 Code: 13095-7 Heart Rate 1: 92 bpm Height: 5'1" Temperature: 36.7 (C) / 98.0 (F) Weight: 172 lbs 05/12/2013 Blood Pressure 1: 142/102 Code: 8480-6 Blood Pressure 2: 144/98 Code: 8480-6 BMI: 34.2 Code: 51703-2 Heart Rate 1: 80 bpm Height: 5'1" Weight: 181 lbs 01/06/2013 Blood Pressure 1: 138/76 Code: 8480-6 BMI: 34.6 Code: 78956-3 Heart Rate 1: 64 bpm Height: 5'1" Weight: 183 lbs 10/07/2012 Blood Pressure 1: 146/76 Code: 8480-6 BMI: 35.6 Code: 96690-5 Heart Rate 1: 76 bpm Height: 5'1" Respiratory Rate: 20 bpm Weight: 188 lbs 8 oz 09/11/2012 Blood Pressure 1: 158/92 Code: 8480-6 BMI: 35.7 Code: 48838-1 Heart Rate 1: 76 bpm Height: 5'1" Weight: 189 lbs 07/15/2012 Blood Pressure 1: 158/100 Code: 8480-6 BMI: 36.3 Code: 53119-5 Heart Rate 1: 72 bpm Height: 5'1" Respiratory Rate: 20 bpm Weight: 192 lbs 05/02/2012 Blood Pressure 1: 156/80 Code: 8480-6 BMI: 35.9 Code: 59424-5 Heart Rate 1: 72 bpm Height: 5'1" Weight: 190 lbs 03/28/2012 Blood Pressure 1: 133/88 Code: 8480-6 Heart Rate 1: 78 bpm Weight: 189 lbs 11/27/2011 Blood Pressure 1: 178/80 Code: 8480-6 BMI: 36.7 Code: 47654-2 Heart Rate 1: 72 bpm Height: 5'1" Respiratory Rate: 20 bpm Weight: 194 lbs 10/25/2011 Blood Pressure 1: 122/62 Code: 8480-6 BMI: 37.0 Code: 94310-4 Heart Rate 1: 80 bpm Height: 5'1" [...] 2: / Code: 8480-6 BMI: 37.1 Code: 79886-6 Heart Rate 1: 72 bpm Height: 5'1" Respiratory Rate: 16 bpm SpO2: % Temperature: .0 (C) / 32.0 (F) Weight: 196 lbs 8 oz 05/22/2011 Blood Pressure 1: 147/71 Code: 8480-6 BMI: 18.7 Code: 73374-1 Heart Rate 1: 77 bpm Height: 7'1" Weight: 192 lbs 05/05/2011 Blood Pressure 1: 178/88 Code: 8480-6 BMI: 37.4 Code: 72336-2 Heart Rate 1: 80 bpm Height: 5' [...] Present Encounters Encounter Performer Location Codes Date ([id number]) [id number] EST. 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 PATIENT, LEVEL III Diagnosis: Mild intermittent asthma with (acute) exacerbation[ICD10: J45.21] Diagnosis: Gastro-esophageal reflux disease without esophagitis[ICD10: K21.9] Jayne Elaine MD [facility] CPT-4: 61255 10/12/2016 ([id number]) 21708 EST. PATIENT, LEVEL IV Diagnosis: Type 2 diabetes mellitus with hyperglycemia[ICD10: E11.65] Diagnosis: Essential (primary) hypertension[ICD10: I10] Diagnosis: Mild intermittent asthma with (acute) exacerbation[ICD10: J45.21] Clarice Elaine MD [facility] CPT-4: 87566 09/04/2016 53228 EST. PATIENT, LEVEL III Diagnosis: Pain in left ankle and joints of left foot[ICD10: M25.572] Diagnosis: Localized edema[ICD10: R60.0] Jayne Elaine MD [facility] CPT-4: 20941 05/30/2016 ([id number]) 06290 EST. PATIENT, LEVEL III Diagnosis: Type 2 diabetes mellitus with hyperglycemia[ICD10: E11.65] Clarice Elaine MD [facility] CPT-4: 24582 05/01/2016 ([id number]) 98637 EST. PATIENT, LEVEL IV Diagnosis: Type 2 diabetes mellitus without complications[ICD10: E11.9] Diagnosis: Moderate persistent asthma, uncomplicated[ICD10: J45.40] Diagnosis: Paroxysmal atrial fibrillation[ICD10: I48.0] Clarice lEaine MD [facility] CPT-4: 00544 02/29/2016 ([id number]) 92121 EST. PATIENT, LEVEL IV Diagnosis: Paroxysmal atrial fibrillation[ICD10: I48.0] Diagnosis: Hypothyroidism, unspecified[ICD10: E03.9] Diagnosis: Type 2 diabetes mellitus without complications[ICD10: E11.9] Diagnosis: Essential (primary) hypertension[ICD10: I10] Diagnosis: Acute maxillary sinusitis, unspecified[ICD10: J01.00] Diagnosis: Moderate persistent asthma, uncomplicated[ICD10: J45.40] Clarice Elaine MD [facility] CPT-4: 37766 02/03/2016 ([id number]) 30285 EST. PATIENT, LEVEL IV Diagnosis: Type 2 diabetes mellitus without complications[ICD10: E11.9] Diagnosis: Hypothyroidism, unspecified[ICD10: E03.9] Diagnosis: Moderate persistent asthma, uncomplicated[ICD10: J45.40] Diagnosis: Essential (primary) hypertension[ICD10: I10] [facility] CPT-4: 79217 12/21/2015 ([id number]) 46853 EST. 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 PATIENT, LEVEL IV Diagnosis: Type 2 diabetes mellitus without complications[ICD10: E11.9] Diagnosis: Essential (primary) hypertension[ICD10: I10] Diagnosis: Hypothyroidism, unspecified[ICD10: E03.9] [facility] CPT-4: 89667 06/22/2015 ([id number]) 32897 EST. PATIENT, LEVEL IV Diagnosis: ESSENTIAL HYPERTENSION[ICD9: 401.9] Diagnosis: DIABETES TYPE II[ICD9: 250.00] Clarice Elaine MD [facility] CPT-4: 23202 12/22/2014 ([id number]) 22286 EST. PATIENT, LEVEL IV Diagnosis: ACUTE BRONCHITIS[ICD9: 466.0] Diagnosis: Acute asthma exacerbation[ICD9: 493.92] Diagnosis: ESSENTIAL HYPERTENSION[ICD9: 401.9] Diagnosis: DIABETES TYPE II[ICD9: 250.00] Clarice Elaine MD [facility] CPT-4: 92330 08/17/2014 ([id number]) 25564 EST. PATIENT, LEVEL IV Diagnosis: DIABETES TYPE II[ICD9: 250.00] Diagnosis: ESSENTIAL HYPERTENSION[ICD9: 401.9] Diagnosis: Acute asthma exacerbation[ICD9: 493.92] Clarice Elaine MD [facility] CPT-4: 92626 04/13/2014 ([id number]) 83971 EST. PATIENT, LEVEL IV Diagnosis: DIABETES TYPE II[ICD9: 250.00] Diagnosis: ESSENTIAL HYPERTENSION[ICD9: 401.9] Diagnosis: HYPOTHYROIDISM[ICD9: 244.9] Clarice Elaine MD [facility] CPT-4: 81416 12/11/2013 ([id number]) 36284 EST. PATIENT, LEVEL IV Diagnosis: DM W/O COMPLICATION TYPE II, UNCONTROLLED[ICD9: 250.02] Diagnosis: ESSENTIAL HYPERTENSION[ICD9: 401.9] Clarice Elaine MD [facility] CPT- 4: 95790 11/10/2013 ([id number]) 52368 EST. PATIENT, LEVEL IV Diagnosis: DM W/O COMPLICATION TYPE II, UNCONTROLLED[SNOMED: 73410058] Diagnosis: ESSENTIAL HYPERTENSION[SNOMED: 05726082] Diagnosis: ACUTE BRONCHITIS[ICD9: 466.0] Clarice Elaine MD [facility] CPT-4: 72632 08/11/2013 ([id number]) 21000 EST. PATIENT, LEVEL IV Diagnosis: DM W/O COMPLICATION TYPE II, UNCONTROLLED[SNOMED: 12450958] Diagnosis: ATRIAL FIBRILLATION[ICD9: 427.31] Diagnosis: ESSENTIAL HYPERTENSION[SNOMED: 41190785] Clarice Elaine MD [facility] CPT-4: 81408 05/12/2013 ([id number]) 27578 EST. PATIENT, LEVEL IV Diagnosis: DM W/O COMPLICATION TYPE II, UNCONTROLLED[SNOMED: 36410227] Diagnosis: ESSENTIAL HYPERTENSION[SNOMED: 94602077] Clarice Elaine MD [facility] CPT-4: 01493 01/06/2013 ([id number]) 60214 EST. PATIENT, LEVEL IV Diagnosis: DIABETES TYPE II[SNOMED: 945888694] Diagnosis: ESSENTIAL HYPERTENSION[SNOMED: 15155227] Diagnosis: Acute asthma exacerbation[ICD9: 493.92] Diagnosis: Fatigue[ICD9: 780.79] Clarice Elaine MD, [facility] CPT-4: 70698 10/07/2012 ([id number]) 22279 EST. PATIENT, LEVEL IV Diagnosis: DM W/O COMPLICATION TYPE II, UNCONTROLLED[SNOMED: 01280146] Diagnosis: Lump of breast, right[ICD9: 611.72] Diagnosis: Lump on neck[ICD9: 784.2] Clarice Elaine MD, [facility] CPT-4: 23450 09/11/2012 ([id number]) 20063 EST. PATIENT, LEVEL IV Diagnosis: ESSENTIAL HYPERTENSION[SNOMED: 18798298] Diagnosis: Atrial fibrillation[ICD9: 427.31] Diagnosis: Fatigue[ICD9: 780.79] Diagnosis: Encounter for monitoring digoxin therapy[ICD9: V58.83] Clarice Elaine MD, [facility] CPT-4: 41136 07/15/2012 ([id number]) 80498 EST. PATIENT, LEVEL IV Diagnosis: DIABETES TYPE II[SNOMED: 572651004] Diagnosis: ESSENTIAL HYPERTENSION[SNOMED: 00171946] Clarice Elaine MD, [facility] CPT-4: 15055 05/02/2012 ([id number]) 71292 EST. PATIENT, LEVEL IV Diagnosis: DM W/O COMPLICATION TYPE II, UNCONTROLLED[SNOMED: 81597668] Diagnosis: ESSENTIAL HYPERTENSION[SNOMED: 75755926] Diagnosis: HYPERLIPIDEMIA[ICD9: 272.4] Clarice Elaine MD, [facility] CPT-4: 81770 03/28/2012 ([id number]) 79059 EST. PATIENT, LEVEL IV Diagnosis: DM W/O COMPLICATION TYPE II, UNCONTROLLED[SNOMED: 04618275] Diagnosis: ESSENTIAL HYPERTENSION[SNOMED: 66589786] Clarice Elaine MD, [facility] CPT-4: 73128 11/27/2011 ([id number]) 07576 EST. PATIENT, LEVEL III Diagnosis: ESSENTIAL HYPERTENSION[SNOMED: 63828216] Diagnosis: ANEMIA[ICD9: 285.9] Diagnosis: Gastritis[ICD9: 535.50] Clarice Elaine MD [facility] CPT-4: 99417 10/25/2011 ([id number]) 54919 EST. PATIENT, LEVEL III Diagnosis: Anemia associated with acute blood loss[ICD9: 285.1] Diagnosis: Gastritis, acute with hemorrhage[ICD9: 535.01] Clarice Elaine MD [facility] CPT-4: 84178 10/11/2011 ([id number]) 75041 EST. PATIENT, LEVEL IV Diagnosis: Hematochezia[ICD9: 578.1] Diagnosis: ENCNTR LONG-RX USE NEC[ICD9: V58.69] Diagnosis: Abdominal pain[ICD9: 789.00] Clarice Elaine MD [facility] CPT-4: 43140 10/04/2011 ([id number]) 71979 EST. PATIENT, LEVEL IV Diagnosis: DIABETES TYPE II[SNOMED: 203860440] Diagnosis: ESSENTIAL HYPERTENSION[SNOMED: 96779945] Diagnosis: Coronary artery disease[ICD9: 414.00] Clarice Elaine MD [facility] CPT-4: 57935 09/25/2011 ([id number]) 21956 EST. PATIENT, LEVEL IV Diagnosis: Muscle spasm[ICD9: 728.85] Diagnosis: Arthralgia[ICD9: 719.40] Diagnosis: ESSENTIAL HYPERTENSION[SNOMED: 54313373] Clarice Elaine MD [facility] CPT-4: 43680 07/31/2011 77924 EST. PATIENT, LEVEL III Diagnosis: ACUTE SINUSITIS[ICD9: 461.9] Diagnosis: Cervicalgia[ICD9: 723.1] Socorro Elaine MD, [facility] CPT-4: 48373 05/22/2011 77167 EST. PATIENT, LEVEL IV Diagnosis: HYPERLIPIDEMIA[ICD9: 272.4] Diagnosis: HYPOTHYROIDISM[ICD9: 244.9] Diagnosis: DM W/O COMPLICATION TYPE II, UNCONTROLLED[SNOMED: 43612192] Clarice Elaine MD, [facility] CPT-4: 52832 05/05/2011 Plan of Care Planned Activity Notes Codes Status Date Appointment: [phone] (15 min) Moderate 12/05/2016 Appointment: [phone] (15 min) Moderate 11/01/2016 Patient Education: Patient Medication Summary Completed 11/01/2016 Appointment: Clarice Elaine WPtel: [facility] (15 min) Moderate 10/18/2016 Patient Education: Patient Medication Summary Completed 10/18/2016 Appointment: [facility] (30 min) Complex 10/12/2016 Patient Education: Patient Medication Summary Completed 10/12/2016 Patient Education: Obesity Completed 10/12/2016 Appointment: Clarice Elaine WPtel: [address] [place], [place] [address] (15 min) Moderate 09/04/2016 Patient Education: Patient Medication Summary Completed 09/04/2016 Patient Education: Obesity Completed 09/04/2016 Patient Education: Hypertension Completed 09/04/2016 Appointment: Jayne Ragland [facility]Ptel[facility] [facility] - Annual Wellness Visit 06/08/2016 Appointment: (15 min) Moderate 05/30/2016 Patient Education: Patient Medication Summary Completed 05/30/2016 Appointment: Clarice Elaine WPtel: [address] [place] [address] (15 min) Moderate 05/01/2016 Patient Education: Patient Medication Summary Completed 05/01/2016 Appointment: Clarice Elaine WPtel: [address] [place] [address] Surgical Procedure 02/29/2016 Patient Education: Patient Medication Summary Completed 02/29/2016 Patient Education: Patient Medication Summary Completed 02/03/2016 Patient Education: Obesity Completed 02/03/2016 Patient Education: Hypertension Completed 02/03/2016 Appointment: [phone] (15 min) Moderate 12/21/2015 Patient Education: Patient Medication Summary Completed 12/21/2015 Patient Education: Obesity Completed 12/21/2015 Patient Education: Hypertension Completed 12/21/2015 Appointment: Renu 11/11/2015 Patient Education: Patient Medication Summary Completed 11/11/2015 Appointment: Clarice Elaine WPtel: [phone] [facility] (15 min) Moderate 10/25/2015 Patient Education: Patient Medication Summary Completed 10/25/2015 Appointment: Socorro Salmeron WPtel: [phone] [phone] (30 min) Complex 10/19/2015 Patient Education: Patient Medication Summary Completed 10/19/2015 Patient Education: Patient Medication Summary Completed 06/22/2015 Patient Education: Hypertension Completed 06/22/2015 Patient Education: Patient Medication Summary Completed 12/22/2014 Patient Education: Hypertension Completed 12/22/2014 Appointment: Clarice Ealine WPtel: [facility] Follow up 08/17/2014 Patient Education: Patient Medication Summary Completed 08/17/2014 Patient Education: Hypertension Completed 08/17/2014 Appointment: Clarice Elaine WPtel: [facility] Follow up 04/13/2014 Patient Education: Patient Medication Summary Completed 04/13/2014 Patient Education: Hypertension Completed 04/13/2014 Appointment: Clarice Elaine WPtel: [facility] Follow up 12/11/2013 Patient Education: Patient Medication Summary Completed 12/11/2013 Patient Education: Hypertension Completed 12/11/2013 Appointment: Clarice Elaine WPtel: [facility] Follow up 11/10/2013 Patient Education: Patient Medication Summary Completed 11/10/2013 Patient Education: Hypertension Completed 11/10/2013 Appointment: Clarice Elaine WPtel: [facility] [place] Lab Draw 11/04/2013 Patient Education: Patient Medication Summary Completed 11/04/2013 Patient Education: Hypertension Completed 11/04/2013 Appointment: Clarice Elaine WPtel: [facility] [place] Follow up 08/11/2013 Patient Education: Patient Medication Summary Completed 08/11/2013 Patient Education: Hypertension Completed 08/11/2013 Appointment: Clarice Elaine WPtel: [address] [place] [id number] Follow up 05/12/2013 Patient Education: Patient Medication Summary Completed 05/12/2013 Patient Education: Hypertension Completed 05/12/2013 Appointment: Clarice Elaine WPtel: [address] [place], [place] [id number] [place] Follow up 01/06/2013 Patient Education: Patient Medication Summary Completed 01/06/2013 Patient Education: Hypertension Completed 01/06/2013 Appointment: Clarice Elaine WPtel: [address] [place] [id number] [place] Follow up 10/07/2012 Patient Education: Patient Medication Summary Completed 10/07/2012 Patient Education: Hypertension Completed 10/07/2012 Appointment: Clarice Elaine WPtel: [address] [place] [address] [place] Follow up 09/11/2012 Patient Education: Patient Medication Summary Completed 09/11/2012 Patient Education: Patient Medication Summary Completed 08/27/2012 Patient Education: Hypertension Completed 08/27/2012 Appointment: Clarice Elaine WPtel: [address] [place] [id number] [place] Follow up 07/15/2012 Patient Education: Patient Medication Summary Completed 07/15/2012 Patient Education: Hypertension Completed 07/15/2012 Appointment: Clarice Elaine WPtel: [address] [place], [place] [phone] [place] Follow up 05/02/2012 Patient Education: Patient Medication Summary Completed 05/02/2012 Patient Education: High Blood Pressure: Essential Hypertension Completed 05/02/2012 Appointment: Clarice Elaine WPtel: [facility] Follow up 03/28/2012 Patient Education: Patient Medication Summary Completed 03/28/2012 Patient Education: High Blood Pressure: Essential Hypertension Completed 03/28/2012 Patient Education: Patient Medication Summary Completed 03/26/2012 Patient Education: High Blood Pressure: Essential Hypertension Completed 03/26/2012 Patient Education: Patient Medication Summary Completed 01/08/2012 Patient Education: High Blood Pressure: Essential Hypertension Completed 01/08/2012 Appointment: Clarice Elaine WPtel: [address] [place] [id number] [place] Follow up 11/27/2011 Patient Education: Patient Medication Summary Completed 11/27/2011 Patient Education: High Blood Pressure: Essential Hypertension Completed 11/27/2011 Patient Education: Patient Medication Summary Completed 11/06/2011 Appointment: Clarice Elaine WPtel: [address] [place] [id number] [place] Other 11/03/2011 Appointment: Clarice Elaine WPtel: [address] [place] [id number] Other 11/02/2011 Appointment: Clarice Elaine WPtel: [address] [place] [id number] [place] Lab Draw 10/31/2011 Appointment: Clarice Elaine WPtel: [address] [place] [id number] [place] Follow up 10/25/2011 Patient Education: Patient Medication Summary Completed 10/25/2011 Patient Education: High Blood Pressure: Essential Hypertension Completed 10/25/2011 Appointment: Clarice Elaine WPtel: [address] [place] [id number] [place] Lab Draw 10/16/2011 Patient Education: Patient Medication Summary Completed 10/16/2011 Appointment: Clarice Elaine WPtel: [address] [place] [id number] [place] Other 10/11/2011 Patient Education: Patient Medication Summary Completed 10/11/2011 Appointment: Clarice Elaine WPtel: [facility] Other 10/10/2011 Appointment: Clarice Elaine WPtel: [facility] [place] Follow up 10/04/2011 Patient Education: Patient Medication Summary Completed 10/04/2011 Appointment: Clarice Elaine WPtel: [facility]5 [facility] [place] Other 09/25/2011 Patient Education: Patient Medication Summary Completed 09/25/2011 Patient Education: High Blood Pressure: Essential Hypertension Completed 09/25/2011 Appointment: Clarice Elaine WPtel: [address] [place] [phone] [place] Other 07/31/2011 Patient Education: Patient Medication Summary Completed 07/31/2011 Patient Education: High Blood Pressure: Essential Hypertension Completed 07/31/2011 Appointment: Socorro Salmeron WPtel: [address] [place], [place] [id number] [place] Other 05/22/2011 Patient Education: Patient Medication Summary Completed 05/22/2011 Appointment: Clarice Elaine WPtel: [address] [place] [id number] [place] Other 05/05/2011 Patient Education: Patient Medication Summary Completed 05/05/2011 Patient Education: High Cholesterol Completed 05/05/2011 Appointment: Clarice Elaine WPtel: [facility] [place] Other 05/04/2011 Appointment: Clarice Elaine WPtel: [address] [place] [id number] [place] Lab Draw 05/02/2011 Patient Education: Patient Medication Summary Completed 05/02/2011 Patient Education: High Blood Pressure: Essential Hypertension Completed 05/02/2011 Instructions No Instructions
--- NOTE | 2018-12-28 04:10 | ED Cough/URI ---
General Chief Complaint: Respiratory Problems Stated Complaint: CHEST CONGESTION,COUGHING,SORE THROAT Source: patient Exam Limitations: no limitations History of Present Illness Date Seen by Provider: Dec 28, 2018 Time Seen by Provider: 03:55 Initial Comments Patient presents to ER by private conveyance with chief complaint of 3 days of upper respiratory symptoms, runny nose, cough productive of yellow phlegm, worse at night. She said her daughter was over Sunday and had a cold. She has a history of asthma and chronic bronchitis and was afraid she might be developing bronchitis again. She has not noticed any worsening wheezing and his been using her inhaler twice a day as well as her nebulizer twice a day but does not feel that it helps. She's had no fevers or chills. She has taken nothing [id number]-[id number]. She has a sore throat. Normal appetite and fluid intake. She had a pneumonia vaccine years ago. She does not smoke. Allergies and Home Medications Allergies Coded Allergies: azithromycin (Verified Allergy, Unknown, 06/23/12) cephalexin (Verified Allergy, Unknown, 04/23/06) levofloxacin (Verified Allergy, Unknown, 06/23/12) meloxicam (Verified Allergy, Unknown, 06/23/12) metoprolol (Verified Allergy, Unknown, NECK SPASMS, 10/18/16) metronidazole (Verified Allergy, Unknown, 06/23/12) morphine (Verified Allergy, Unknown, 04/23/06) theophylline (Verified Allergy, Unknown, 04/23/06) prednisone (Verified Adverse Reaction, Intermediate, STOMACH BLEED, 10/19/15) norfloxacin (Verified Adverse Reaction, Unknown, GI INTOLERANCE, 09/11/07) trovafloxacin (Verified Adverse Reaction, Unknown, GI INTOLERANCE, 09/11/07) Home Medications Albuterol Sulfate 2.5 Mg/3 Ml Vial.neb, 2.5 MG NEB QID PRN for SHORTNESS OF BREATH, (Reported) Albuterol Sulfate 1 Puff Puff, 2 PUFF INH Q4H PRN for SHORTNESS OF BREATH, (Reported) Budesonide/Formoterol Fumarate 10.2 Gm Hfa.aer.ad, 2 PUFF IH BID PRN for SHORTNESS OF BREATH, (Reported) EITHER USES BREO OR SYMBICROT, DOES NOT USE THEM TOGETHER Fluticasone/Vilanterol 1 Each Blst.w.dev, 1 PUFF INH DAILY, (Reported) USES EITHER BREO OR SYMBICORT, DOES NOT USE THEM TOGETHER Glipizide 5 Mg Tablet, 2.5 MG PO BID, (Reported) TAKES 1/2 OF A (5 MG) TABLET Hydrocodone/Acetaminophen 1 Each Tablet, 1 TAB PO Q4H Prescribed by: FUNMILAYO MANNING on 10/16/18 1151 Hyoscyamine Sulfate 0.125 Mg Tablet, 0.125 MG PO Q6H PRN for SPASMS, (Reported) Levothyroxine Sodium 75 Mcg Tablet, 75 MCG PO DAILY, (Reported) Propylene Glycol/Peg 400 15 Ml Drops, 2 DROPS OU QID PRN for DRY EYES, (Reported) Rivaroxaban 20 Mg Tablet, 20 MG PO 1700, (Reported) Sucralfate 1 Gm Tablet, 1 GM PO ACHS PRN for GI UPSET, (Reported) DISSOLVE WITH 10ML WATER [Liq Vit B Comp] , 1 APPFUL PO DAILY, (Reported) Patient Home Medication List Home Medication List Reviewed: Yes Review of Systems Review of Systems Constitutional: No chills, No fever; malaise EENTM: No ear discharge, No hearing loss, No ear pain Respiratory: cough, phlegm; No short of breath, No wheezing Cardiovascular: No chest pain, No edema, No palpitations Gastrointestinal: No abdominal pain, No constipation, No diarrhea Past Nwncdzc-Gmmrkw-Dqtccz Hx Patient Social History Alcohol Use: Denies Use Recreational Drug Use: No Smoking Status: Never a Smoker 2nd Hand Smoke Exposure: No Recent Foreign Travel: No Contact w/Someone Who Travel: No Recent Hopitalizations: No Immunizations Up To Date Tetanus Booster (TDap): Unknown Date of Pneumonia Vaccine: Mar 14, 2016 Date of Influenza Vaccine: Apr 08, 2017 Seasonal Allergies Seasonal Allergies: Yes Past Medical History Surgeries: Yes (R CTR, SINUS, R FOOT, BILAT TKR, CARDIAC ABLATION) Cardiac, Coronary Stent, Gallbladder, Hysterectomy, Orthopedic, Thyroidectomy Respiratory: Yes Asthma, Pulmonary Embolism, COPD Currently Using CPAP: No Currently Using BIPAP: No Cardiac: Yes (stents x 3, implanted heart monitor) Atrial Fibrillation, Coronary Artery Disease, Deep Vein Thrombosis, High Cholesterol Neurological: No Reproductive Disorders: No Female Reproductive Disorders: Denies Sexually Transmitted Disease: No HIV/AIDS: No Genitourinary: No Gastrointestinal: Yes Gastroesophageal Reflux, Gastrointestinal Bleed Musculoskeletal: Yes Arthritis, Rheumatoid Arthritis Endocrine: Yes (right thyroidectomy) Hypothyroidsim, Diabetes, Non-Insulin dep HEENT: Yes (GLASSES) Cataract Loss of Vision: Bilateral Hearing Impairment: Denies Cancer: No Psychosocial: Yes Anxiety Integumentary: No Blood Disorders: No Adverse Reaction/Blood Tranf: No (HAS HAD BLOOD WITH NO REACTION) Family Medical History Arthritis 19 FATHER G8 SISTER Congenital heart disease 19 MOTHER G8 BROTHER Diabetes mellitus G8 BROTHER FH: CHF (congestive heart failure) 19 FATHER 19 MOTHER G8 BROTHER FH: CVA (cerebrovascular accident) 19 MOTHER G8 SISTER FH: hypercholesterolemia FH: musculoskeletal disease 19 FATHER G8 SISTER Glaucoma G8 SISTER Hypercholesterolemia Hypertension 19 MOTHER G8 SISTER Myocardial infarction G8 BROTHER Heart Disease, Hypertension Physical Exam Vital Signs - First Documented 12/28/18 04:05 Temp 98.8 Pulse 88 Resp 24 B/P (MAP) 191/109 (136) Capillary Refill : Height: 5'4.00" Weight: 163lbs. 5.0oz. 74.322832cs; 28.0 BMI Method:Estimated General Appearance: WD/WN, no apparent distress Eyes: Bilateral Eye Normal Inspection, Bilateral Eye PERRL, Bilateral Eye EOMI HEENT: PERRL/EOMI, normal ENT inspection, TMs normal, pharyngeal erythema, other Neck: non-tender, full range of motion (clear rhinorrhea), supple, normal inspection Respiratory: chest non-tender, lungs clear, normal breath sounds, no respiratory distress, no accessory muscle use, wheezing (faint left-sided expiratory wheeze) Cardiovascular: normal peripheral pulses, regular rate, rhythm, no edema Gastrointestinal: non tender, soft Extremities: normal inspection, normal capillary refill Neurologic/Psychiatric: alert, normal mood/affect, oriented x 3 Skin: normal color, warm/dry Progress/Results/Core Measures Suspected Sepsis SIRS Temperature: Pulse: Respiratory Rate: Blood Pressure / Mean: Results/Orders Lab Results Laboratory Tests Test 12/28/18 04:11 Range/Units Group A Streptococcus Screen NEGATIVE NEGATIVE My Orders Orders - JOHN ESPINOZA Chest Pa/Lat (2 View) (12/28/18 04:05) Rapid Strep A Screen (12/28/18 04:05) Vital Signs/I&O 12/28/18 04:05 Temp 98.8 Pulse 88 Resp 24 B/P (MAP) 191/109 (136) Capillary Refill : Progress Note : Time: 04:09 Progress Note Rapid strep swab and chest x-ray two-view. She took a breathing treatment just b efore arrival in her lungs sound okay. Diagnostic Imaging Diagonstic Imaging: Xray Plain Films/CT/US/NM/MRI: chest (2 view) Comments No acute cardiopulmonary processes on a 2 view chest x-ray. Reviewed: Reviewed by Me Departure Impression Primary Impression: Upper respiratory tract infection Qualified Codes: J06.9 - Acute upper respiratory infection, unspecified Additional Impressions: Bronchitis Maxillary sinusitis, acute Qualified Codes: J01.00 - Acute maxillary sinusitis, unspecified Disposition: HOME, SELF-CARE Condition: Stable Departure-Patient Inst. Decision time for Depature: 04:52 Referrals: JUAN FRANCISCO ELAINE MD (PCP/Family) Primary Care Physician Patient Instructions: Acute Bronchitis Add. Discharge Instructions: Drink plenty of fluids. Use vapor rubs such as Vicks or Mentholatum. Use your breathing treatments as necessary for wheezing or coughing fits. Use the Tessalon Perles 1 capsule every 6 hours as needed for coughing. Take the doxycycline one capsule with food twice a day for the next 10 days to treat your sinus infection and bronchitis. If you're not seeing improvement by day 4 to 5, Sunday or Sunday then follow-up with Dr. Elaine, primary care. All discharge instructions reviewed with patient and/or family. Voiced unders tanding. Scripts Doxycycline Hyclate (Doxycycline Hyclate) 100 Mg Tablet 100 MG PO BID, #20 TAB 0 Refills Prov: JOHN ESPINOZA 12/28/18 Benzonatate (Tessalon Perle) 100 Mg Capsule 100 MG PO Q6H PRN for COUGH, #20 CAP 0 Refills Prov: JOHN ESPINOZA 12/28/18 JOHN ESPINOZA Dec 28, 2018 04:10
--- NOTE | 2018-12-28 04:12 | NUR ---
strep scrreen by me and to lab by me oralpharynx appears wnl.
--- OUTSIDE RECORDS SUMMARY | 2018-12-28 04:15 | XMS REPORT | CCD ---
Author Author Clarice Elaine Organization Clarice Elaine MD, 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 Unknown Has never used illegal drugs 05/05/2011 Allergies, Adverse Reactions, Alerts Substance Reaction Codes Entered Date Inactivated Date Status noroxin RxNorm: 7517 05/05/2011 No Inactive Date Active trovan RxNorm: 218722 05/05/2011 No Inactive Date Active * NO KNOWN FOOD ALLERGIES Unknown 05/05/2011 No Inactive Date Active PREDNISONE RxNorm: 8640 05/05/2011 No Inactive Date Active cephalexin RxNorm: 2231 05/05/2011 No Inactive Date Active theophylline RxNorm: 48125 05/05/2011 No Inactive Date Active azithromycin Unknown 10/11/2011 No Inactive Date Active Levaquin RxNorm: 40249 10/11/2011 No Inactive Date Active MORPHINE SULFATE RxNorm: 7052 10/11/2011 No Inactive Date Active METRONIDAZOLE Unknown 05/05/2011 No Inactive Date Active Past Medical History Illness Codes Condition Status Onset Date Resolved Date Atrophy of thyroid (acquired) ICD-9: 244.8 ICD-10: E03.4 Active 05/27/2018 Unknown Cough ICD-9: 786.2 ICD-10: R05 Active 05/14/2017 Unknown Mild intermittent asthma with (acute) exacerbation ICD-9: 493.12 ICD-10: J45.21 Active 10/24/2015 Unknown Type 2 diabetes mellitus with hyperglycemia ICD-9: 250.02 ICD-10: E11.65 Active 11/10/2013 Unknown Essential (primary) hypertension ICD-9: 401.1 ICD-10: I10 Active 11/13/2017 Unknown Paroxysmal atrial fibrillation ICD-9: 427.31 ICD-10: I48.0 Active 07/15/2012 Unknown Type 2 diabetes mellitus without complications ICD-9: 250.00 ICD-10: E11.9 Active 12/11/2013 Unknown Dysuria ICD-9: 788.1 ICD-10: R30.0 Active 12/31/2017 Unknown Other specified anemias ICD-9: V58.69 ICD-10: D64.89 Active 12/04/2017 Unknown Anemia, unspecified ICD- 9: 285.9 ICD-10: D64.9 Active 11/22/2017 Unknown Benign paroxysmal vertigo, bilateral ICD-9: 386.11 ICD-10: H81.13 Active 11/13/2017 Unknown Other allergic rhinitis ICD-9: 477.8 ICD-10: J30.89 Active 11/13/2017 Unknown Other fatigue ICD-9: 780.79 ICD-10: R53.83 Active 11/13/2017 Unknown Other specified anemias ICD-9: 285.8 ICD-10: D64.89 Active 09/20/2017 Unknown Gastro-esophageal reflux disease without esophagitis ICD-9: 530.81 ICD-10: K21.9 Active 10/12/2016 Unknown Essential (primary) hypertension ICD-9: 401.9 ICD-10: I10 Active 11/10/2013 Unknown Impacted cerumen, right ear ICD-9: 380.4 ICD-10: H61.21 Active 05/29/2017 Unknown Acute bronchitis due to other specified organisms ICD-9: 466.0 ICD-10: J20.8 Active 05/14/2017 Unknown Other chest pain ICD-9: 786.52 ICD-10: R07.89 Active 05/14/2017 Unknown Encounter for immunization ICD-9: V04.81 ICD-10: Z23 Active 04/30/2017 Unknown 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 condition ICD-9: 293.84 ICD-10: F06.4 Active 10/18/2015 Unknown Localized edema ICD-9: 782.3 ICD-10: R60.0 Active 05/29/2016 Unknown Pain in left ankle and joints of left foot ICD-9: 719.47 ICD-10: M25.572 Active 05/29/2016 Unknown Moderate persistent asthma, uncomplicated ICD-9: 493.90 ICD-10: J45.40 Active 02/28/2016 Unknown Acute maxillary sinusitis, unspecified ICD-9: 461.0 [...] Problems Condition Codes Effective Dates Condition Status Atrophy of thyroid (acquired) ICD-9: 244.8 ICD-10: E03.4 05/27/2018 Active Cough ICD-9: 786.2 ICD-10: R05 05/14/2017 Active Mild intermittent asthma with (acute) exacerbation ICD-9: 493.12 ICD-10: J45.21 10/24/2015 Active Type 2 diabetes mellitus with hyperglycemia ICD-9: 250.02 ICD-10: E11.65 11/10/2013 Active Essential (primary) hypertension ICD-9: 401.1 ICD-10: I10 11/13/2017 Active Paroxysmal atrial fibrillation ICD-9: 427.31 ICD-10: I48.0 07/15/2012 Active Type 2 diabetes mellitus without complications ICD-9: 250.00 ICD-10: E11.9 12/11/2013 Active Dysuria ICD-9: 788.1 ICD-10: R30.0 12/31/2017 Active Other specified anemias ICD-9: V58.69 ICD-10: D64.89 12/04/2017 Active Anemia, unspecified ICD- 9: 285.9 ICD-10: D64.9 11/22/2017 Active Benign paroxysmal vertigo, bilateral ICD-9: 386.11 ICD-10: H81.13 11/13/2017 Active Other allergic rhinitis ICD-9: 477.8 ICD-10: J30.89 11/13/2017 Active Other fatigue ICD-9: 780.79 ICD-10: R53.83 11/13/2017 Active Other specified anemias ICD-9: 285.8 ICD-10: D64.89 09/20/2017 Active Gastro-esophageal reflux disease without esophagitis ICD-9: 530.81 ICD-10: K21.9 10/12/2016 Active Essential (primary) hypertension ICD-9: 401.9 ICD-10: I10 11/10/2013 Active Impacted cerumen, right ear ICD-9: 380.4 ICD-10: H61.21 05/29/2017 Active Acute bronchitis due to other specified organisms ICD-9: 466.0 ICD-10: J20.8 05/14/2017 Active Other chest pain ICD-9: 786.52 ICD-10: R07.89 05/14/2017 Active Encounter for immunization ICD-9: V04.81 ICD-10: Z23 04/30/2017 Active 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 condition ICD-9: 293.84 ICD-10: F06.4 10/18/2015 Active Localized edema ICD-9: 782.3 ICD-10: R60.0 05/29/2016 Active Pain in left ankle and joints of left foot ICD-9: 719.47 ICD-10: M25.572 05/29/2016 Active Moderate persistent asthma, uncomplicated ICD-9: 493.90 ICD-10: J45.40 02/28/2016 Active Acute maxillary sinusitis, unspecified ICD-9: 461.0 [...] Start Date Stop Date Status Fill Instructions Dulera 100 mcg-5 mcg/actuation HFA aerosol inhaler RxNorm: 2734515 1 Puff(s) INH BID 09/23/2018 01/20/2019 Active Kenalog 40 mg/mL suspension for injection RxNorm: 8048110 Milliliter(s) Inj 09/23/2018 09/23/2018 Inactive albuterol sulfate 2.5 mg/3 mL (0.083 %) solution for nebulization RxNorm: 839527 USE 1 VIAL IN NEBULIZER 4 TIMES DAILY NEEDED FOR ASTHMA 08/26/2018 No Stop Date Active Symbicort 160 mcg-4.5 mcg/actuation HFA aerosol inhaler RxNorm: 8457278 1 INH BID 06/07/2018 07/06/2018 Inactive Symbicort 160 mcg-4.5 mcg/actuation HFA aerosol inhaler RxNorm: 3638945 1 INH 06/07/2018 06/06/2018 Inactive glipizide 5 mg tablet RxNorm: 893924 1/2 Tablet(s) PO BID TAKE ONE-HALF TABLET BY MOUTH TWICE DAILY 05/27/2018 08/19/2019 Active Synthroid 75 mcg tablet RxNorm: 775096 1 Tablet(s) PO daily 05/15/2018 11/10/2018 Active Synthroid 75 mcg tablet RxNorm: 858032 1 Tablet(s) PO daily 05/15/2018 05/14/2018 Inactive Synthroid 88 mcg tablet RxNorm: 370897 TAKE 1 TABLET BY MOUTH ONCE DAILY 04/08/2018 05/14/2018 Inactive amiodarone 200 mg tablet RxNorm: 195879 1/2 Tablet(s) PO BID 01/21/2018 05/26/2018 Inactive Bactrim DS 800 mg-160 mg tablet RxNorm: 391773 1 Tablet(s) PO BID 01/03/2018 01/02/2018 Inactive take probiotic bid x 7 days Bactrim DS 800 mg-160 mg tablet RxNorm: 665460 1 Tablet(s) PO BID 01/03/2018 01/09/2018 Inactive take probiotic bid x 7 days nitrofurantoin 100 mg capsule RxNorm: 413506 1 Capsule(s) PO BID 12/31/2017 01/06/2018 Inactive nitrofurantoin 100 mg capsule RxNorm: 480412 1 Capsule(s) PO BID 12/31/2017 12/30/2017 Inactive nitrofurantoin 100 mg capsule RxNorm: 367602 1 Capsule(s) PO BID 12/31/2017 12/30/2017 Inactive glipizide 5 mg tablet RxNorm: 229456 TAKE ONE-HALF TABLET BY MOUTH TWICE DAILY 11/23/2017 05/26/2018 Inactive meclizine 25 mg tablet RxNorm: 333942 1 Tablet(s) PO Q6 PRN 11/13/2017 No Stop Date Active Kenalog 40 mg/mL suspension for injection RxNorm: 2219898 1.5 Milliliter(s) Inj 10/30/2017 10/30/2017 Inactive Augmentin 875 mg-125 mg tablet RxNorm: 057463 1 Tablet(s) PO BID 10/30/2017 11/05/2017 Inactive Synthroid 88 mcg tablet RxNorm: 169626 TAKE ONE TABLET BY MOUTH ONCE DAILY 10/15/2017 04/07/2018 Inactive metformin 500 mg tablet RxNorm: 092321 TAKE ONE TABLET BY MOUTH WITH BREAKFAST AND ONE TABLET WITH LUNCH AND TWO TABLETS WITH SUPPER 10/15/2017 01/20/2018 Inactive albuterol sulfate 2.5 mg/3 mL (0.083 %) solution for nebulization RxNorm: 866088 USE ONE VIAL IN NEBULIZER 4 TIMES DAILY NEEDED FOR ASTHMA 08/16/2017 08/25/2018 Inactive Plavix 75 mg tablet RxNorm: 341687 TAKE ONE TABLET BY MOUTH ONCE DAILY 06/25/2017 06/24/2017 Inactive Plavix 75 mg tablet RxNorm: 029885 1 Tablet(s) PO daily TAKE ONE TABLET BY MOUTH ONCE DAILY 06/25/2017 09/19/2017 Inactive acyclovir 800 mg tablet RxNorm: 607454 1 Tablet(s) PO QID 05/15/2017 05/14/2017 Inactive acyclovir 800 mg tablet RxNorm: 793760 1 Tablet(s) PO QID 05/15/2017 05/21/2017 Inactive tramadol 50 mg tablet RxNorm: 517443 1 Tablet(s) PO TID 05/15/2017 05/24/2017 Inactive ketorolac 60 mg/2 mL intramuscular solution RxNorm: 481772 2 Milliliter(s) IM 05/14/2017 05/14/2017 Inactive Augmentin 875 mg-125 mg tablet RxNorm: 261448 1 Tablet(s) PO BID 05/14/2017 05/23/2017 Inactive Synthroid 88 mcg tablet RxNorm: 308897 TAKE ONE TABLET BY MOUTH ONCE DAILY; NEED THYROID LABS DONE 04/16/2017 10/12/2017 Inactive Kenalog 40 mg/mL suspension for injection RxNorm: 0931697 Milliliter(s) Inj 03/06/2017 03/06/2017 Inactive metformin 500 mg tablet RxNorm: 507949 1 Tablet(s) UD 1 tab at breakfast, 1tab at lunch, 2 tab at supper 03/06/2017 09/01/2017 Inactive glipizide 5 mg tablet RxNorm: 634772 TAKE ONE-HALF TABLET BY MOUTH TWICE DAILY 02/23/2017 11/19/2017 Inactive Synthroid 88 mcg tablet RxNorm: 906224 Tablet(s) PO TAKE ONE TABLET BY MOUTH DAILY 01/17/2017 04/15/2017 Inactive Needs thyroid labs done Plavix 75 mg tablet RxNorm: 472718 TAKE ONE TABLET BY MOUTH ONCE DAILY 12/25/2016 06/22/2017 Inactive Kenalog 40 mg/mL suspension for injection RxNorm: 5626507 1.5 Milliliter(s) Inj 09/04/2016 09/04/2016 Inactive Janumet XR 100 mg-1,000 mg tablet,extended release RxNorm: 9051954 1 Tablet(s) PO daily 09/04/2016 03/02/2017 Inactive glipizide 5 mg tablet RxNorm: 028840 TAKE ONE-HALF TABLET BY MOUTH TWICE DAILY 08/24/2016 02/19/2017 Inactive Janumet XR 50 mg-1,000 mg tablet,extended release RxNorm: 6747498 TAKE ONE TABLET BY MOUTH ONCE DAILY 05/29/2016 09/03/2016 Inactive metoprolol tartrate 25 mg tablet RxNorm: 210733 1/4 Tablet(s) PO BID 05/01/2016 05/29/2016 Inactive glipizide 5 mg tablet RxNorm: 309131 TAKE ONE-HALF TABLET BY MOUTH TWICE DAILY 02/21/2016 08/18/2016 Inactive ProAir HFA 90 mcg/actuation aerosol inhaler RxNorm: 446879 2 Puff(s) INH PRN as needed ASTHMA 02/03/2016 03/03/2016 Inactive Accu-Chek Active Test strips RxNorm: 1 test Miscellaneous daily 02/03/2016 08/25/2019 Active DX250.00 albuterol sulfate 2.5 mg/3 mL (0.083 %) solution for nebulization RxNorm: 909134 1 Milliliter(s) INH QID as needed ASTHMA 02/03/2016 06/01/2016 Inactive Janumet XR 50 mg-1,000 mg tablet,extended release RxNorm: 3757362 1 Tablet(s) PO daily 02/03/2016 05/28/2016 Inactive Augmentin 875 mg-125 mg tablet RxNorm: 822026 1 Tablet(s) PO BID 02/03/2016 02/12/2016 Inactive sucralfate 1 gram tablet RxNorm: 884196 1 Tablet(s) PO QID - take 30 minutes before meals and before supper 12/21/2015 04/18/2016 Inactive metformin ER 500 mg tablet,extended release 24 hr RxNorm: 153105 1 Tablet(s) PO BID 12/21/2015 02/02/2016 Inactive digoxin 250 mcg tablet RxNorm: 382832 1 Tablet(s) PO daily 12/21/2015 01/20/2018 Inactive Synthroid 88 mcg tablet RxNorm: 192799 Tablet(s) PO TAKE ONE TABLET BY MOUTH DAILY 12/20/2015 01/16/2017 Inactive Plavix 75 mg tablet RxNorm: 847122 1 Tablet(s) PO daily 12/20/2015 12/13/2016 Inactive Kenalog 40 mg/mL suspension for injection RxNorm: 8932455 1 Milliliter(s) Inj 11/11/2015 11/11/2015 Inactive Kenalog 40 mg/mL suspension for injection RxNorm: 1221062 1 Milliliter(s) Inj 10/25/2015 10/25/2015 Inactive metformin 500 mg tablet RxNorm: 909486 2 Tablet(s) PO BID 07/16/2015 12/20/2015 Inactive metformin 500 mg tablet RxNorm: 808761 TAKE TWO TABLETS BY MOUTH TWICE DAILY 07/16/2015 12/20/2015 Inactive albuterol sulfate 2.5 mg/3 mL (0.083 %) solution for nebulization RxNorm: 034135 1 Milliliter(s) INH QID as needed ASTHMA 07/14/2015 11/10/2015 Inactive glipizide 5 mg tablet RxNorm: 146803 1/2 Tablet(s) PO BID 02/03/2015 01/28/2016 Inactive Symbicort 160 mcg-4.5 mcg/actuation HFA aerosol inhaler RxNorm: 6658890 1 INH 01/06/2015 06/06/2018 Inactive metformin 500 mg tablet RxNorm: 584586 2 Tablet(s) PO BID 12/22/2014 06/19/2015 Inactive Plavix 75 mg tablet RxNorm: 419604 1 Tablet(s) PO daily 12/02/2014 11/26/2015 Inactive note directions of one per day Synthroid 88 mcg tablet RxNorm: 310682 1 Tablet(s) PO daily TAKE ONE TABLET BY MOUTH DAILY 12/02/2014 04/07/2018 Inactive Accu-Chek Active Test strips RxNorm: 1 test Miscellaneous daily 08/17/2014 02/02/2016 Inactive DX250.00 Kenalog 40 mg/mL suspension for injection RxNorm: 6711102 Milliliter(s) Inj 08/17/2014 08/17/2014 Inactive doxycycline hyclate 100 mg tablet RxNorm: 816665 1 Tablet(s) PO BID 08/17/2014 08/26/2014 Inactive albuterol sulfate 2.5 mg/3 mL (0.083 %) solution for nebulization RxNorm: 077739 1 Milliliter(s) INH QID as needed ASTHMA 08/17/2014 08/16/2014 Inactive albuterol sulfate 2.5 mg/3 mL (0.083 %) solution for nebulization RxNorm: 231093 1 Milliliter(s) INH QID as needed ASTHMA 08/17/2014 12/14/2014 Inactive doxycycline hyclate 100 mg tablet RxNorm: 113398 1 Tablet(s) PO BID 08/17/2014 08/16/2014 Inactive Accu-Chek Multiclix Lancet RxNorm: 1 Miscellaneous daily TEST BLOOD SUGAR EVERY DAY 08/17/2014 09/10/2015 Inactive DX 250.00 metformin 500 mg tablet RxNorm: 936548 TAKE TWO TABLETS BY MOUTH TWICE DAILY 06/23/2014 09/20/2014 Inactive metformin 500 mg tablet RxNorm: 123708 2 Tablet(s) PO BID 06/22/2014 12/18/2014 Inactive Bactrim DS 800 mg-160 mg tablet RxNorm: 641001 1 Tablet(s) PO BID 05/11/2014 05/17/2014 Inactive Bactrim DS 800 mg-160 mg tablet RxNorm: 897926 1 Tablet(s) PO BID 05/11/2014 05/10/2014 Inactive Kenalog 40 mg/mL suspension for injection RxNorm: 3820496 Milliliter(s) Inj 04/13/2014 04/13/2014 Inactive Accu-Chek Active Test strips RxNorm: 1 TEST MISCELLANEOUS BID 04/06/2014 10/22/2014 Inactive glipizide 5 mg tablet RxNorm: 212350 1/2 Tablet(s) PO BID 03/03/2014 02/02/2015 Inactive Synthroid 88 mcg tablet RxNorm: 112091 1 Tablet(s) PO daily TAKE ONE TABLET BY MOUTH DAILY 12/11/2013 12/01/2014 Inactive Plavix 75 mg tablet RxNorm: 101299 1 Tablet(s) PO daily 12/11/2013 12/01/2014 Inactive note directions of one per day glipizide 5 mg tablet RxNorm: 389920 1/2 Tablet(s) PO BID 11/10/2013 03/02/2014 Inactive Lipitor 10 mg tablet RxNorm: 120700 1 Tablet(s) PO daily 11/10/2013 12/21/2014 Inactive Accu-Chek Active Test strips RxNorm: strip miscellaneous TEST BLOOD SUGAR EVERY DAY 11/03/2013 No Stop Date Active Accu-Chek Multiclix Lancet RxNorm: misc miscellaneous TEST BLOOD SUGAR EVERY DAY 08/07/2013 08/16/2014 Inactive Accu-Chek Active Test strips RxNorm: strip miscellaneous TEST BLOOD SUGAR EVERY DAY 08/05/2013 No Stop Date Active digoxin 125 mcg tablet RxNorm: 556123 1 Tablet(s) PO daily 08/05/2013 10/28/2014 Inactive metformin 500 mg tablet RxNorm: 299934 2 Tablet(s) PO BID 06/12/2013 06/21/2014 Inactive metformin 500 mg tablet RxNorm: 762477 2 Tablet(s) PO BID 05/12/2013 06/11/2013 Inactive metformin 500 mg tablet RxNorm: 413186 Tablet(s) PO TAKE ONE & ONE-HALF TABLETS BY MOUTH TWICE DAILY 04/10/2013 05/11/2013 Inactive Synthroid 88 mcg tablet RxNorm: 706185 Tablet(s) PO TAKE ONE TABLET BY MOUTH DAILY 01/07/2013 12/19/2015 Inactive Synthroid 88 mcg tablet RxNorm: 510787 1 Tablet(s) PO daily TAKE ONE TABLET BY MOUTH DAILY 01/06/2013 12/10/2013 Inactive Plavix 75 mg tablet RxNorm: 456742 1 Tablet(s) PO daily 12/09/2012 12/03/2013 Inactive note directions of one per day Lipitor 80 mg tablet RxNorm: 581997 Tablet(s) PO TAKE 1 TABLET BY MOUTH EVERY DAY 10/28/2012 11/09/2013 Inactive Synthroid 88 mcg tablet RxNorm: 026815 Tablet(s) PO TAKE ONE TABLET BY MOUTH DAILY 10/07/2012 10/06/2012 Inactive Synthroid 88 mcg tablet RxNorm: 511561 1 Tablet(s) PO daily TAKE ONE TABLET BY MOUTH DAILY 10/07/2012 01/05/2013 Inactive Kenalog 40 mg/mL Susp for Injection RxNorm: 1570217 1 Milliliter(s) IM 10/07/2012 10/07/2012 Inactive digoxin 250 mcg tablet RxNorm: 1971791 1/2 Tablet(s) PO daily 07/15/2012 08/04/2013 Inactive Synthroid 88 mcg tablet RxNorm: 053445 Tablet(s) PO TAKE ONE TABLET BY MOUTH DAILY 06/28/2012 10/06/2012 Inactive Accu-Chek Multiclix Lancet RxNorm: Misc Miscellaneous 06/05/2012 No Stop Date Active TEST BLOOD SUGAR EVERY DAY Accu-Chek Active Test Strips RxNorm: Strip Miscellaneous 06/05/2012 No Stop Date Active TEST BLOOD SUGAR EVERY DAY Lipitor 80 mg tablet RxNorm: 922338 1/2 Tablet(s) PO daily 03/28/2012 No Stop Date Active TAKE 1 TABLET BY MOUTH EVERY DAY metformin 500 mg tablet RxNorm: 637674 1.5 Tablet(s) PO BID 03/28/2012 04/09/2013 Inactive Lipitor 80 mg tablet RxNorm: 142835 1/2 Tablet(s) PO 03/28/2012 08/16/2014 Inactive TAKE 1 TABLET BY MOUTH EVERY DAY Lipitor 80 mg tablet RxNorm: 616587 1/2 Tablet(s) PO daily 03/28/2012 No Stop Date Active TAKE 1 TABLET BY MOUTH EVERY DAY Influenza Virus Vaccine 0.5 mL RxNorm: IM 03/26/2012 03/26/2012 Inactive Pneumovax 23 25 mcg/0.5 mL Injection RxNorm: 058503 Milliliter(s) Inj 03/26/2012 03/26/2012 Inactive metformin 500 mg tablet RxNorm: 555273 1 Tablet(s) PO BID 11/27/2011 03/27/2012 Inactive Plavix 75 mg tablet RxNorm: 569351 1 Tablet(s) PO daily 11/01/2011 11/24/2012 Inactive note directions of one per day Lipitor 80 mg tablet RxNorm: 544634 Tablet(s) PO 10/18/2011 03/27/2012 Inactive TAKE 1 TABLET BY MOUTH EVERY DAY Protonix 40 mg Tab RxNorm: 167936 1 Tablet(s) PO BID 10/11/2011 12/20/2015 Inactive Accu-Chek Active Test Strips RxNorm: 1 test Miscellaneous daily 10/04/2011 08/16/2014 Inactive Carafate 1 gram Tab RxNorm: 065498 1 Tablet(s) PO QID 10/02/2011 10/31/2011 Inactive Carafate 1 gram Tab RxNorm: 538812 1 Tablet(s) PO TID 09/29/2011 09/28/2011 Inactive Carafate 1 gram Tab RxNorm: 706734 1 Tablet(s) PO TID 09/29/2011 10/01/2011 Inactive Kenalog 40 mg/mL Susp for Injection RxNorm: 8519396 2 Milliliter(s) Inj 07/31/2011 07/31/2011 Inactive Synthroid 88 mcg tablet RxNorm: 933304 1 Tablet(s) PO daily 06/06/2011 10/11/2011 Inactive Accu-Chek Active Test Strips RxNorm: 1 test Miscellaneous BID 06/05/2011 10/03/2011 Inactive Accu-Chek Multiclix Lancet RxNorm: 1 test Miscellaneous BID 06/02/2011 09/24/2011 Inactive Accu-Chek Active Test strips RxNorm: 1 test Miscellaneous BID 06/02/2011 06/04/2011 Inactive Bactrim DS 800 mg-160 mg Tab RxNorm: 068874 1 Tablet(s) PO BID 05/22/2011 05/31/2011 Inactive metformin 500 mg Tab RxNorm: 295668 1 Tablet(s) PO TID 05/05/2011 10/31/2011 Inactive Influenza Virus Vaccine 0.5 mL RxNorm: IM 05/02/2011 05/02/2011 Inactive albuterol sulfate HFA 90 mcg/Actuation Aerosol Inhaler RxNorm: 5199530 1 Puff(s) INH PRN prn shortness of breath No Start Date Active Xarelto 20 mg tablet RxNorm: 3781580 1 Tablet(s) PO daily No Start Date Active multivitamin chewable tablet RxNorm: 1 Tablet(s) PO daily No Start Date Active Fish Oil 300 mg-1,000 mg capsule RxNorm: 888296 1 Capsule(s) PO occasional No Start Date Active hyoscyamine 0.125 mg sublingual tablet RxNorm: 4153376 1 Tablet(s) SL Q6 No Start Date Active simvastatin 20 mg tablet RxNorm: 187001 1/2 Tablet(s) PO daily No Start Date 12/20/2015 Inactive Zantac 75 75 mg Tab RxNorm: 709038 2 Tablet(s) PO daily No Start Date 12/20/2015 Inactive Protonix 40 mg Tab RxNorm: 655543 1 Tablet(s) PO daily No Start Date 10/10/2011 Inactive Fish Oil 1,000 mg capsule RxNorm: 3 Capsule(s) PO daily No Start Date 12/20/2015 Inactive amiodarone 400 mg tablet RxNorm: 768152 1 Tablet(s) PO daily No Start Date 12/09/2017 Inactive digoxin 125 mcg tablet RxNorm: 2521622 1 Tablet(s) PO daily No Start Date 08/04/2013 Inactive Brilinta 90 mg Tab RxNorm: 6306456 1 Tablet(s) PO daily No Start Date 10/10/2011 Inactive Fish Oil 1,000 mg Cap RxNorm: 3 Capsule(s) PO daily No Start Date 12/21/2015 Inactive Flintstones Complete 18 mg iron chewable tablet RxNorm: 2 Tablet(s) PO daily No Start Date 12/20/2015 Inactive Niaspan Extended-Release 500 mg 24 hr Tab RxNorm: 2763470 1 Tablet(s) PO daily No Start Date 09/24/2011 Inactive samples tramadol 50 mg tablet RxNorm: 347714 1 Tablet(s) PO TID No Start Date 05/14/2017 Inactive aspirin 81 mg Cap, Delayed Release RxNorm: 224597 Capsule(s) PO daily No Start Date 05/01/2012 Inactive pantoprazole 40 mg tablet,delayed release RxNorm: 791897 1 Tablet(s) PO daily No Start Date 05/26/2018 Inactive metformin 500 mg Tab RxNorm: 907377 1 Tablet(s) PO BID No Start Date 05/04/2011 Inactive Singulair 10 mg tablet RxNorm: 006439 1 Tablet(s) PO daily No Start Date 05/26/2018 Inactive Prilosec OTC 20 mg tablet,delayed release RxNorm: 942704 1 Tablet(s) PO daily No Start Date 10/31/2016 Inactive Zantac 150 mg Tab RxNorm: 528713 1 Tablet(s) PO BID No Start Date 10/10/2011 Inactive Synthroid 88 mcg Tab RxNorm: 074544 1 Tablet(s) PO daily No Start Date 06/05/2011 Inactive Plavix 75 mg Tab RxNorm: 443712 1 Tablet(s) PO daily No Start Date 10/31/2011 Inactive amiodarone 200 mg tablet RxNorm: 444471 1 Tablet(s) PO BID No Start Date 01/20/2018 Inactive Cartia XT 120 mg capsule,extended release RxNorm: 897763 1 Capsule(s) PO daily and 1 QPM if HR above [address] Dr Aguilar manages No Start Date 05/26/2018 Inactive aspirin 81 mg Cap, Delayed Release RxNorm: 875367 1 Capsule(s) PO daily No Start Date 10/01/2011 Inactive Lipitor 80 mg Tab RxNorm: 961717 1 Tablet(s) PO daily No Start Date 10/17/2011 Inactive Symbicort 160 mcg-4.5 mcg/Actuation HFA Aerosol Inhaler RxNorm: 6765622 1 INH No Start Date 01/05/2015 Inactive Medication Administered Medication Codes Instructions Start Date Status Kenalog 40 mg/mL suspension for injection RxNorm: 3837507 Milliliter 09/23/2018 Active Kenalog 40 mg/mL suspension for injection RxNorm: 5468687 1.5Milliliter 10/30/2017 No longer Active ketorolac 60 mg/2 mL intramuscular solution RxNorm: 789692 2Milliliter 05/14/2017 No longer Active Kenalog 40 mg/mL suspension for injection RxNorm: 7966000 Milliliter 03/06/2017 No longer Active Kenalog 40 mg/mL suspension for injection RxNorm: 1749804 1.5Milliliter 09/04/2016 No longer Active Kenalog 40 mg/mL suspension for injection RxNorm: 9231245 1Milliliter 11/11/2015 No longer Active Kenalog 40 mg/mL suspension for injection RxNorm: 3149007 1Milliliter 10/25/2015 No longer Active Kenalog 40 mg/mL suspension for injection RxNorm: 8124320 Milliliter 08/17/2014 No longer Active Kenalog 40 mg/mL suspension for injection RxNorm: 6487329 Milliliter 04/13/2014 No longer Active Kenalog 40 mg/mL Susp for Injection RxNorm: 8306623 1Milliliter 10/07/2012 No longer Active Influenza Virus Vaccine 0.5 mL RxNorm: 03/26/2012 No longer Active Pneumovax 23 25 mcg/0.5 mL Injection RxNorm: 516743 Milliliter 03/26/2012 No longer Active Kenalog 40 mg/mL Susp for Injection RxNorm: 4307798 2Milliliter 07/31/2011 No longer Active Influenza Virus [...] 05/05/2010 completed Assessments Condition Codes Effective Dates Cough ICD-10: R05 ICD-9: 786.2 09/23/2018 Mild intermittent asthma with (acute) exacerbation ICD-10: J45.21 ICD-9: 493.12 09/23/2018 Type 2 diabetes mellitus with hyperglycemia ICD-10: E11.65 ICD-9: 250.02 09/23/2018 Atrophy of thyroid (acquired) ICD-10: E03.4 ICD-9: 244.8 09/23/2018 Type 2 diabetes mellitus without complications ICD-10: E11.9 ICD-9: 250.00 01/21/2018 Paroxysmal atrial fibrillation ICD-10: I48.0 ICD-9: 427.31 01/21/2018 Essential (primary) hypertension ICD-10: I10 ICD-9: 401.1 01/21/2018 Dysuria ICD-10: R30.0 ICD-9: 788.1 12/31/2017 Other specified anemias ICD-10: D64.89 ICD-9: V58.69 12/04/2017 Anemia, unspecified ICD-10: D64.9 ICD-9: 285.9 11/28/2017 Other fatigue ICD-10: R53.83 ICD-9: 780.79 11/13/2017 Benign paroxysmal vertigo, bilateral ICD-10: H81.13 ICD-9: 386.11 11/13/2017 Other specified anemias ICD-10: D64.89 ICD-9: 285.8 11/13/2017 Other allergic rhinitis ICD-10: J30.89 ICD-9: 477.8 11/13/2017 Gastro-esophageal reflux disease without esophagitis ICD-10: K21.9 ICD-9: 530.81 09/20/2017 Essential (primary) hypertension ICD-10: I10 ICD-9: 401.9 05/29/2017 Impacted cerumen, right ear ICD-10: H61.21 ICD-9: 380.4 05/29/2017 Acute bronchitis due to other specified organisms ICD-10: J20.8 ICD-9: 466.0 05/14/2017 Other chest pain ICD-10: R07.89 ICD-9: 786.52 05/14/2017 Encounter for immunization ICD-10: Z23 ICD-9: V04.81 04/30/2017 Gastro-esophageal reflux disease with esophagitis ICD-10: K21.0 ICD-9: 530.11 11/01/2016 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 ICD-9: 293.84 10/18/2016 Localized edema ICD-10: R60.0 ICD-9: 782.3 05/30/2016 Pain in left ankle and joints of left foot ICD-10: M25.572 ICD-9: 719.47 05/30/2016 Moderate persistent asthma, uncomplicated ICD-10: J45.40 ICD-9: 493.90 02/29/2016 Hypothyroidism, unspecified ICD-10: E03.9 ICD-9: 244.9 [...] Visit Reason For Visit Effective Dates Notes hypertension 09/23/2018 hypertension 05/27/2018 hypertension 01/21/2018 dizziness 12/04/2017 dizziness 11/13/2017 cough 10/30/2017 Hospital Follow Up 09/20/2017 back pain 05/29/2017 back pain 05/14/2017 vaccination [...] Observation Code Item Item Code Result Date A1C HPLC 3494268 Hgb A1c 49123-5 7.9 % 09/11/2018 CBC 4469017 WBC 5.6 10e9/L 09/11/2018 CBC 3357101 RBC 5.07 10e12/L 09/11/2018 CBC 1538697 HEMOGLOBIN 13.7 g/dL 09/11/2018 CBC 8554971 HEMATOCRIT 43.9 % 09/11/2018 CBC 8006069 MCV 86.6 fL 09/11/2018 CBC 3674308 MCH 27.0 pg 09/11/2018 CBC 4390008 MCHC 31.2 g/dL 09/11/2018 CBC 5737170 PLATELET COUNT 282 10e9/L 09/11/2018 CBC 3669191 Mean Plt Volume 10.3 fL 09/11/2018 CBC 9069896 Neut Auto 46.8 % 09/11/2018 CBC 8466427 Lymph Auto 28.0 % 09/11/2018 CBC 6199103 [place] Auto 10.5 % 09/11/2018 CBC 7887556 RDW 15.9 % 09/11/2018 CBC 8743166 Eos Auto 12.9 % 09/11/2018 CBC 2840082 Baso Auto 1.8 % 09/11/2018 CBC 9607869 Neutrophil Abs 2.62 10e9/L 09/11/2018 CBC 9383792 Lymphocyte Abs 1.57 10e9/L 09/11/2018 CBC 6477235 Monocyte Abs 0.59 10e9/L 09/11/2018 CBC 6997615 Eosinophil Abs 0.72 10e9/L 09/11/2018 CBC 6687192 RDW-SD 49.6 fL 09/11/2018 CBC 9683060 Basophil Abs 0.10 10e9/L 09/11/2018 CHEM 14 7742452 AST 17 U/L 09/11/2018 CHEM 14 3160876 ALT 14 U/L 09/11/2018 CHEM 14 6569417 BUN 20 mg/dL 09/11/2018 CHEM 14 5718793 ALBUMIN 3.8 g/dL 09/11/2018 CHEM 14 2736891 CHLORIDE 104 mmol/L 09/11/2018 CHEM 14 9658883 Bili Total 0.7 mg/dL 09/11/2018 CHEM 14 5375810 ALK PHOS 64 U/L 09/11/2018 CHEM 14 6938459 SODIUM 143 mmol/L 09/11/2018 CHEM 14 5196045 CREATININE 0.75 mg/dL 09/11/2018 CHEM 14 1537622 CALCIUM 9.3 mg/dL 09/11/2018 CHEM 14 7061154 POTASSIUM 4.3 mmol/L 09/11/2018 CHEM 14 7945017 TOTAL PROTEIN 6.5 g/dL 09/11/2018 CHEM 14 1598592 GLUCOSE 174 mg/dL 09/11/2018 CHEM 14 5904147 Bicarbonate 31 mmol/L 09/11/2018 CHEM 14 0378129 AGAP 8 mmol/L 09/11/2018 FREE T4 7147926 T4 Free 1.16 ng/dL 09/11/2018 MEAN GLUC 5739347 Calc Mean Gluc 180 mg/dL 09/11/2018 TSH 1904005 TSH 1.080 uIU/mL 09/11/2018 GFR CALC 1567584 GFR Non Afr Amr >60 mL/min 09/11/2018 GFR CALC 7321897 GFR Afr Amr >60 mL/min 09/11/2018 Free T4 Pix595 FREE T4 1.66 ng/dL 05/09/2018 Tsh Ord6 TSH (3rd IS) 2.15 uIU/mL 05/09/2018 Cbc With Differential Ord2 WBC 6.54 K/ul 05/09/2018 Cbc With Differential Ord2 RBC 4.65 M/ul 05/09/2018 Cbc With Differential Ord2 HGB 12.8 g/dl 05/09/2018 Cbc With Differential Ord2 HCT 40.6 % 05/09/2018 Cbc With Differential Ord2 Neut% 58.5 % 05/09/2018 Cbc With Differential Ord2 MCV 87.3 fl 05/09/2018 Cbc With Differential Ord2 Lymph% 18.0 % 05/09/2018 Cbc With Differential Ord2 MCH 27.5 pg 05/09/2018 Cbc With Differential Ord2 [place]% 11.6 % 05/09/2018 Cbc With Differential Ord2 MCHC 31.5 pg 05/09/2018 Cbc With Differential Ord2 Eos% 10.2 % 05/09/2018 Cbc With Differential Ord2 PLT 355 K/ul 05/09/2018 Cbc With Differential Ord2 Baso% 1.7 % 05/09/2018 Cbc With Differential Ord2 RDW 16.4 % 05/09/2018 Cbc With Differential Ord2 Neut ABS# 3.82 K/ul 05/09/2018 Cbc With Differential Ord2 Lymph ABS# 1.18 K/ul 05/09/2018 Cbc With Differential Ord2 [place] ABS# 0.8 K/ul 05/09/2018 Cbc With Differential Ord2 Eos ABS# 0.7 K/ul 05/09/2018 Cbc With Differential Ord2 Baso ABS# 0.1 K/ul 05/09/2018 Metabolic Ord15 NA 139 mEq/L 05/09/2018 Metabolic Ord15 K 4.0 mEq/L 05/09/2018 Metabolic Ord15 CL 101 mEq/L 05/09/2018 Metabolic Ord15 CO2 31.0 mEq/L 05/09/2018 Metabolic Ord15 GLUCOSE 171 mg/dL 05/09/2018 Metabolic Ord15 BUN 19 mg/dL 05/09/2018 Metabolic Ord15 Creat 0.8 mg/dL 05/09/2018 Metabolic Ord15 B/C Ratio 23.8 Ratio 05/09/2018 Metabolic Ord15 eGFR 74 ml/min/1.73m2 05/09/2018 Metabolic Ord15 Osmo 284 mOsmo 05/09/2018 Metabolic Ord15 ANION GAP 11 05/09/2018 Metabolic Ord15 CALCIUM 9.3 mg/dL 05/09/2018 %Hba1C Etg581 % HbA1c 45674- 6 8.9 % 05/09/2018 %Hba1C Kxq826 Gluc Ave 209 mg/dL 05/09/2018 LIPID GRP CHOLESTEROL 184 mg/dL 01/14/2018 LIPID GRP Triglyceride 65 mg/dL 01/14/2018 LIPID GRP HDL CHOLESTEROL 53 mg/dL 01/14/2018 LIPID GRP Chol/HDL Ratio 3.47 ratio 01/14/2018 LIPID GRP NON-HDL Chol 131 mg/dL 01/14/2018 LIPID GRP LDL Cholesterol 118 mg/dL 01/14/2018 A1C HPLC 1737722 Hgb A1c 30055-0 6.5 % 01/14/2018 CBC 4162243 WBC 5.8 10e9/L 01/14/2018 CBC 1823664 RBC 4.67 10e12/L 01/14/2018 CBC 3285123 HEMOGLOBIN 12.4 g/dL 01/14/2018 CBC 8405356 HEMATOCRIT 40.6 % 01/14/2018 CBC 8176483 MCV 86.9 fL 01/14/2018 CBC 7774850 MCH 26.6 pg 01/14/2018 CBC 0994175 MCHC 30.5 g/dL 01/14/2018 CBC 3266935 PLATELET COUNT 419 10e9/L 01/14/2018 CBC 3534927 Mean Plt Volume 10.1 fL 01/14/2018 CBC 4385211 Neut Auto 60.7 % 01/14/2018 CBC 9483442 Lymph Auto 24.8 % 01/14/2018 CBC 2205481 [place] Auto 9.7 % 01/14/2018 CBC 2997203 RDW 25.0 % 01/14/2018 CBC 5295550 Eos Auto 3.4 % 01/14/2018 CBC 3124237 Baso Auto 1.4 % 01/14/2018 CBC 5879892 Neutrophil Abs 3.52 10e9/L 01/14/2018 CBC 1374986 Lymphocyte Abs 1.44 10e9/L 01/14/2018 CBC 3145852 Monocyte Abs 0.56 10e9/L 01/14/2018 CBC 3854046 Eosinophil Abs 0.20 10e9/L 01/14/2018 CBC 7677736 RDW-SD 75.4 fL 01/14/2018 CBC 8385675 Basophil Abs 0.08 10e9/L 01/14/2018 MEAN GLUC 7079377 Calc Mean Gluc 140 mg/dL 01/14/2018 Culture Urine [id number] URINE CULTURE SEE NOTES 01/03/2018 Culture Urine [id number] Continued Results 01/03/2018 Urine Culture Ucult Complete >100,000 col/ml aerobic growth sent to ref lab 01/01/2018 Ferritin Ord22 FERRITIN 4.0 ng/mL 12/04/2017 Tibc Ord40 Iron 15 ug/dl 12/04/2017 Tibc Ord40 UIBC 389 ug/dL 12/04/2017 Tibc Ord40 TIBC 404 ug/dL 12/04/2017 Tibc Ord40 Fe-%Sat 3.7 % 12/04/2017 Cbc With Differential Ord2 WBC 9.17 K/ul 11/20/2017 Cbc With Differential Ord2 RBC 4.11 M/ul 11/20/2017 Cbc With Differential Ord2 HGB 10.2 g/dl 11/20/2017 Cbc With Differential Ord2 HCT 33.3 % 11/20/2017 Cbc With Differential Ord2 Neut% 70.0 % 11/20/2017 Cbc With Differential Ord2 MCV 81.0 fl 11/20/2017 Cbc With Differential Ord2 Lymph% 18.0 % 11/20/2017 Cbc With Differential Ord2 MCH 24.8 pg 11/20/2017 Cbc With Differential Ord2 [place]% 7.9 % 11/20/2017 Cbc With Differential Ord2 MCHC 30.6 pg 11/20/2017 Cbc With Differential Ord2 Eos% 3.4 % 11/20/2017 Cbc With Differential Ord2 PLT 445 K/ul 11/20/2017 Cbc With Differential Ord2 Baso% 0.7 % 11/20/2017 Cbc With Differential Ord2 RDW 15.6 % 11/20/2017 Cbc With Differential Ord2 Neut ABS# 6.43 K/ul 11/20/2017 Cbc With Differential Ord2 Lymph ABS# 1.65 K/ul 11/20/2017 Cbc With Differential Ord2 [place] ABS# 0.7 K/ul 11/20/2017 Cbc With Differential Ord2 Eos ABS# 0.3 K/ul 11/20/2017 Cbc With Differential Ord2 Baso ABS# 0.1 K/ul 11/20/2017 Comp Metabolic Evt007 NA 142 mEq/L 11/20/2017 Comp Metabolic Nks898 K 4.1 mEq/L 11/20/2017 Comp Metabolic Jyf322 CL 104 mEq/L 11/20/2017 Comp Metabolic Pwz054 CO2 29.0 mEq/L 11/20/2017 Comp Metabolic Lbj946 ANION GAP 13 11/20/2017 Comp Metabolic Wed252 GLUCOSE 178 mg/dL 11/20/2017 Comp Metabolic Tce938 Creat 0.6 mg/dL 11/20/2017 Comp Metabolic Jsc716 eGFR 112 ml/min/1.73m2 11/20/2017 Comp Metabolic Itl362 BUN 19 mg/dL 11/20/2017 Comp Metabolic Oiy840 B/C Ratio 33.9 Ratio 11/20/2017 Comp Metabolic Mrk727 CALCIUM 9.3 mg/dL 11/20/2017 Comp Metabolic Nih932 ALK PHOS 60 U/L 11/20/2017 Comp Metabolic Aju892 AST(SGOT) 13 U/L 11/20/2017 Comp Metabolic Bdd074 ALT(SGPT) 14 U/L 11/20/2017 Comp Metabolic Fiv321 BILI T 0.4 mg/dL 11/20/2017 Comp Metabolic Dht698 ALBUMIN 4.1 g/dL 11/20/2017 Comp Metabolic Pti091 TPRO 6.0 g/dL 11/20/2017 Comp Metabolic Fxt917 GLOB 1.9 g/dL 11/20/2017 Comp Metabolic Lwx878 A/G Ratio 2.2 Ratio 11/20/2017 Comp Metabolic Cmn517 Osmo 290 mOsmo 11/20/2017 Cbc With Differential Ord2 WBC 10.77 K/ul 11/13/2017 Cbc With Differential Ord2 RBC 4.19 M/ul 11/13/2017 Cbc With Differential Ord2 HGB 10.4 g/dl 11/13/2017 Cbc With Differential Ord2 HCT 34.0 % 11/13/2017 Cbc With Differential Ord2 Neut% 74.7 % 11/13/2017 Cbc With Differential Ord2 MCV 81.1 fl 11/13/2017 Cbc With Differential Ord2 Lymph% 14.6 % 11/13/2017 Cbc With Differential Ord2 MCH 24.8 pg 11/13/2017 Cbc With Differential Ord2 [place]% 7.8 % 11/13/2017 Cbc With Differential Ord2 MCHC 30.6 pg 11/13/2017 Cbc With Differential Ord2 Eos% 2.3 % 11/13/2017 Cbc With Differential Ord2 PLT 458 K/ul 11/13/2017 Cbc With Differential Ord2 Baso% 0.6 % 11/13/2017 Cbc With Differential Ord2 RDW 15.2 % 11/13/2017 Cbc With Differential Ord2 Neut ABS# 8.04 K/ul 11/13/2017 Cbc With Differential Ord2 Lymph ABS# 1.57 K/ul 11/13/2017 Cbc With Differential Ord2 [place] ABS# 0.8 K/ul 11/13/2017 Cbc With Differential Ord2 Eos ABS# 0.3 K/ul 11/13/2017 Cbc With Differential Ord2 Baso ABS# 0.1 K/ul 11/13/2017 Comp Metabolic Uad978 NA 142 mEq/L 11/13/2017 Comp Metabolic Ezu198 K 4.2 mEq/L 11/13/2017 Comp Metabolic Pja079 CL 104 mEq/L 11/13/2017 Comp Metabolic Pep117 CO2 26.0 mEq/L 11/13/2017 Comp Metabolic Djc574 ANION GAP 16 11/13/2017 Comp Metabolic Bjx854 GLUCOSE 115 mg/dL 11/13/2017 Comp Metabolic Spb062 Creat 0.6 mg/dL 11/13/2017 Comp Metabolic Dxs508 eGFR 114 ml/min/1.73m2 11/13/2017 Comp Metabolic Ypp317 BUN 15 mg/dL 11/13/2017 Comp Metabolic Kzv776 B/C Ratio 27.3 Ratio 11/13/2017 Comp Metabolic Dby464 CALCIUM 9.2 mg/dL 11/13/2017 Comp Metabolic Yck043 ALK PHOS 59 U/L 11/13/2017 Comp Metabolic Vgs366 AST(SGOT) 12 U/L 11/13/2017 Comp Metabolic Fft532 ALT(SGPT) 13 U/L 11/13/2017 Comp Metabolic Tkh232 BILI T 0.5 mg/dL 11/13/2017 Comp Metabolic Wii805 ALBUMIN 4.0 g/dL 11/13/2017 Comp Metabolic Ozv972 TPRO 6.0 g/dL 11/13/2017 Comp Metabolic Aas624 GLOB 2.0 g/dL 11/13/2017 Comp Metabolic Ibt100 A/G Ratio 2.0 Ratio 11/13/2017 Comp Metabolic Cfc295 Osmo 285 mOsmo 11/13/2017 Cbc With Differential Ord2 WBC 9.05 K/ul 09/20/2017 Cbc With Differential Ord2 RBC 4.31 M/ul 09/20/2017 Cbc With Differential Ord2 HGB 11.6 g/dl 09/20/2017 Cbc With Differential Ord2 HCT 37.4 % 09/20/2017 Cbc With Differential Ord2 Neut% 68.0 % 09/20/2017 Cbc With Differential Ord2 MCV 86.8 fl 09/20/2017 Cbc With Differential Ord2 Lymph% 17.1 % 09/20/2017 Cbc With Differential Ord2 MCH 26.9 pg 09/20/2017 Cbc With Differential Ord2 [place]% 9.9 % 09/20/2017 Cbc With Differential Ord2 MCHC 31.0 pg 09/20/2017 Cbc With Differential Ord2 Eos% 4.2 % 09/20/2017 Cbc With Differential Ord2 PLT 392 K/ul 09/20/2017 Cbc With Differential Ord2 Baso% 0.8 % 09/20/2017 Cbc With Differential Ord2 RDW 15.9 % 09/20/2017 Cbc With Differential Ord2 Neut ABS# 6.15 K/ul 09/20/2017 Cbc With Differential Ord2 Lymph ABS# 1.55 K/ul 09/20/2017 Cbc With Differential Ord2 [place] ABS# 0.9 K/ul 09/20/2017 Cbc With Differential Ord2 Eos ABS# 0.4 K/ul 09/20/2017 Cbc With Differential Ord2 Baso ABS# 0.1 K/ul 09/20/2017 Comp Metabolic Ddr529 NA 138 mEq/L 09/20/2017 Comp Metabolic Vra193 K 4.0 mEq/L 09/20/2017 Comp Metabolic Mrj714 CL 99 mEq/L 09/20/2017 Comp Metabolic Mro670 CO2 26.0 mEq/L 09/20/2017 Comp Metabolic Ngf475 ANION GAP 17 09/20/2017 Comp Metabolic Lwc304 GLUCOSE 275 mg/dL 09/20/2017 Comp Metabolic Zgf360 Creat 0.6 mg/dL 09/20/2017 Comp Metabolic Ppo726 eGFR 96 ml/min/1.73m2 09/20/2017 Comp Metabolic Atc952 BUN 17 mg/dL 09/20/2017 Comp Metabolic Skf801 B/C Ratio 26.6 Ratio 09/20/2017 Comp Metabolic Qpm537 CALCIUM 9.5 mg/dL 09/20/2017 Comp Metabolic Xwq993 ALK PHOS 57 U/L 09/20/2017 Comp Metabolic Ugx106 AST(SGOT) 13 U/L 09/20/2017 Comp Metabolic Ujx284 ALT(SGPT) 13 U/L 09/20/2017 Comp Metabolic Fvb189 BILI T 0.5 mg/dL 09/20/2017 Comp Metabolic Rqd291 ALBUMIN 4.1 g/dL 09/20/2017 Comp Metabolic Zau085 TPRO 5.9 g/dL 09/20/2017 Comp Metabolic Irl605 GLOB 1.8 g/dL 09/20/2017 Comp Metabolic Jsi958 A/G Ratio 2.3 Ratio 09/20/2017 Comp Metabolic Wzl954 Osmo 287 mOsmo 09/20/2017 %Hba1C Xaj457 % HbA1c 90782- 6 7.2 % 09/20/2017 %Hba1C Gif191 Gluc Ave 160 mg/dL 09/20/2017 MEAN GLUC 2437348 Calc Mean Gluc 169 mg/dL 02/28/2017 CBC 5059373 WBC 7.6 10e9/L 02/28/2017 CBC 9013048 RBC 4.91 10e12/L 02/28/2017 CBC 2700851 HEMOGLOBIN 13.2 g/dL 02/28/2017 CBC 6058320 HEMATOCRIT 42.7 % 02/28/2017 CBC 0073067 MCV 87.0 fL 02/28/2017 CBC 4341554 MCH 26.9 pg 02/28/2017 CBC 8152965 MCHC 30.9 g/dL 02/28/2017 CBC 6871967 PLATELET COUNT 341 10e9/L 02/28/2017 CBC 3049307 Mean Plt Volume 10.7 fL 02/28/2017 CBC 7186666 Neut Auto 62.1 % 02/28/2017 CBC 0681437 Lymph Auto 20.2 % 02/28/2017 CBC 8466429 [place] Auto 9.3 % 02/28/2017 CBC 6424038 RDW 15.8 % 02/28/2017 CBC 3438500 Eos Auto 7.1 % 02/28/2017 CBC 8802709 Baso Auto 1.3 % 02/28/2017 CBC 8647394 Neutrophil Abs 4.72 10e9/L 02/28/2017 CBC 4749880 Lymphocyte Abs 1.54 10e9/L 02/28/2017 CBC 9243621 Monocyte Abs 0.71 10e9/L 02/28/2017 CBC 8868753 Eosinophil Abs 0.54 10e9/L 02/28/2017 CBC 5428699 RDW-SD 49.0 fL 02/28/2017 CBC 8615699 Basophil Abs 0.10 10e9/L 02/28/2017 LIPID GRP 3172541 CHOLESTEROL 189 mg/dL 02/28/2017 LIPID GRP 6933529 Triglyceride 124 mg/dL 02/28/2017 LIPID GRP HDL CHOLESTEROL 43 mg/dL 02/28/2017 LIPID GRP Chol/HDL Ratio 4.40 ratio 02/28/2017 LIPID GRP 5260455 NON-HDL Chol 146 mg/dL 02/28/2017 LIPID GRP 6313935 LDL Cholesterol 121 mg/dL 02/28/2017 A1C HPLC 0620475 Hgb A1c 23999-0 7.5 % 02/28/2017 GFR CALC 4443569 GFR Non Afr Amr >60 mL/min 02/28/2017 GFR CALC 4246072 GFR Afr Amr >60 mL/min 02/28/2017 CHEM 14 3001657 AST 15 U/L 02/28/2017 CHEM 14 2026592 ALT 16 U/L 02/28/2017 CHEM 14 7976341 BUN 18 mg/dL 02/28/2017 CHEM 14 7688517 ALBUMIN 4.0 g/dL 02/28/2017 CHEM 14 2073333 CHLORIDE 104 mmol/L 02/28/2017 CHEM 14 6319706 Bili Total 0.6 mg/dL 02/28/2017 CHEM 14 6877556 ALK PHOS 53 U/L 02/28/2017 CHEM 14 9297338 SODIUM 143 mmol/L 02/28/2017 CHEM 14 6172340 CREATININE 0.66 mg/dL 02/28/2017 CHEM 14 8310920 CALCIUM 9.2 mg/dL 02/28/2017 CHEM 14 5974019 POTASSIUM 3.9 mmol/L 02/28/2017 CHEM 14 7596486 TOTAL PROTEIN 6.6 g/dL 02/28/2017 CHEM 14 9984891 GLUCOSE 146 mg/dL 02/28/2017 CHEM 14 3398359 Bicarbonate 30 mmol/L 02/28/2017 CHEM 14 1479507 AGAP 9 mmol/L 02/28/2017 CBC 1580272 WBC 6.8 10e9/L 08/21/2016 CBC 5522337 RBC 4.87 10e12/L 08/21/2016 CBC 6276627 HEMOGLOBIN 12.7 g/dL 08/21/2016 CBC 9491712 HEMATOCRIT 40.5 % 08/21/2016 CBC 7056587 MCV 83.2 fL 08/21/2016 CBC 0062350 MCH 26.1 pg 08/21/2016 CBC 6644480 MCHC 31.4 g/dL 08/21/2016 CBC 8038542 PLATELET COUNT 334 10e9/L 08/21/2016 CBC 3473257 Mean Plt Volume 10.5 fL 08/21/2016 CBC 1275372 Neut Auto 56.4 % 08/21/2016 CBC 0684597 Lymph Auto 23.5 % 08/21/2016 CBC 0643809 [place] Auto 9.7 % 08/21/2016 CBC 5422038 RDW 16.6 % 08/21/2016 CBC 4920188 Eos Auto 9.5 % 08/21/2016 CBC 2878737 Baso Auto 0.9 % 08/21/2016 CBC 7088677 Neutrophil Abs 3.84 10e9/L 08/21/2016 CBC 1630860 Lymphocyte Abs 1.60 10e9/L 08/21/2016 CBC 9153364 Monocyte Abs 0.66 10e9/L 08/21/2016 CBC 2345746 Eosinophil Abs 0.65 10e9/L 08/21/2016 CBC 9701218 RDW-SD 49.7 fL 08/21/2016 CBC 6330888 Basophil Abs 0.06 10e9/L 08/21/2016 FREE T4 4911624 T4 Free 1.39 ng/dL 08/21/2016 LIPID GRP CHOLESTEROL 211 mg/dL 08/21/2016 LIPID GRP Triglyceride 105 mg/dL 08/21/2016 LIPID GRP HDL CHOLESTEROL 45 mg/dL 08/21/2016 LIPID GRP Chol/HDL Ratio 4.69 ratio 08/21/2016 LIPID GRP NON-HDL Chol 166 mg/dL 08/21/2016 LIPID GRP LDL Cholesterol 145 mg/dL 08/21/2016 A1C HPLC 4428865 Hgb A1c 50914-4 7.4 % 08/21/2016 GFR CALC 4107011 GFR Non Afr Amr >60 mL/min 08/21/2016 GFR CALC 7981913 GFR Afr Amr >60 mL/min 08/21/2016 CHEM 14 20280111 AST 16 U/L 08/21/2016 CHEM 14 3675496 ALT 14 U/L 08/21/2016 CHEM 14 6230943 BUN 14 mg/dL 08/21/2016 CHEM 14 1755595 ALBUMIN 4.1 g/dL 08/21/2016 CHEM 14 2509227 CHLORIDE 105 mmol/L 08/21/2016 CHEM 14 9762881 Bili Total 0.5 mg/dL 08/21/2016 CHEM 14 5643300 ALK PHOS 53 U/L 08/21/2016 CHEM 14 3330788 SODIUM 141 mmol/L 08/21/2016 CHEM 14 1912359 CREATININE 0.66 mg/dL 08/21/2016 CHEM 14 1433606 CALCIUM 9.3 mg/dL 08/21/2016 CHEM 14 7505041 POTASSIUM 4.0 mmol/L 08/21/2016 CHEM 14 4642901 TOTAL PROTEIN 6.6 g/dL 08/21/2016 CHEM 14 5260613 GLUCOSE 145 mg/dL 08/21/2016 CHEM 14 6901437 Bicarbonate 29 mmol/L 08/21/2016 CHEM 14 5774324 AGAP 7 mmol/L 08/21/2016 TSH 6991446 TSH 1.485 uIU/mL 08/21/2016 MEAN GLUC 5923820 Calc Mean Gluc 166 mg/dL 08/21/2016 Cbc With Differential Ord2 WBC 6.53 K/ul 04/24/2016 Cbc With Differential Ord2 RBC 4.73 M/ul 04/24/2016 Cbc With Differential Ord2 HGB 12.0 g/dl 04/24/2016 Cbc With Differential Ord2 HCT 38.9 % 04/24/2016 Cbc With Differential Ord2 Neut% 55.1 % 04/24/2016 Cbc With Differential Ord2 MCV 82.2 fl 04/24/2016 Cbc With Differential Ord2 Lymph% 22.8 % 04/24/2016 Cbc With Differential Ord2 MCH 25.4 pg 04/24/2016 Cbc With Differential Ord2 [place]% 10.9 % 04/24/2016 Cbc With Differential Ord2 MCHC 30.8 pg 04/24/2016 Cbc With Differential Ord2 Eos% 10.0 % 04/24/2016 Cbc With Differential Ord2 PLT 338 K/ul 04/24/2016 Cbc With Differential Ord2 Baso% 1.2 % 04/24/2016 Cbc With Differential Ord2 RDW 16.7 % 04/24/2016 Cbc With Differential Ord2 Neut ABS# 3.60 K/ul 04/24/2016 Cbc With Differential Ord2 Lymph ABS# 1.49 K/ul 04/24/2016 Cbc With Differential Ord2 [place] ABS# 0.7 K/ul 04/24/2016 Cbc With Differential Ord2 Eos ABS# 0.7 K/ul 04/24/2016 Cbc With Differential Ord2 Baso ABS# 0.1 K/ul 04/24/2016 Comp Metabolic Uxw871 NA 138 mEq/L 04/24/2016 Comp Metabolic Ovj222 K 4.3 mEq/L 04/24/2016 Comp Metabolic Wem758 CL 103 mEq/L 04/24/2016 Comp Metabolic Lpq700 CO2 28.0 mEq/L 04/24/2016 Comp Metabolic Las843 ANION GAP 11 04/24/2016 Comp Metabolic Ktz005 GLUCOSE 138 mg/dL 04/24/2016 Comp Metabolic Dpr169 Creat 0.6 mg/dL 04/24/2016 Comp Metabolic Dcm113 eGFR 98 ml/min/1.73m2 04/24/2016 Comp Metabolic Czk720 BUN 16 mg/dL 04/24/2016 Comp Metabolic Hcm130 B/C Ratio 25.4 Ratio 04/24/2016 Comp Metabolic Kgb603 CALCIUM 9.2 mg/dL 04/24/2016 Comp Metabolic Eeo551 ALK PHOS 55 U/L 04/24/2016 Comp Metabolic Ogn178 AST(SGOT) 16 U/L 04/24/2016 Comp Metabolic Nkc329 ALT(SGPT) 16 U/L 04/24/2016 Comp Metabolic Dds380 BILI T 0.6 mg/dL 04/24/2016 Comp Metabolic Yjf651 ALBUMIN 3.9 g/dL 04/24/2016 Comp Metabolic Qxa665 TPRO 6.1 g/dL 04/24/2016 Comp Metabolic Vfs328 GLOB 2.2 g/dL 04/24/2016 Comp Metabolic Ulw079 A/G Ratio 1.7 Ratio 04/24/2016 Comp Metabolic Zdp273 Osmo 279 mOsmo 04/24/2016 Lipid Ord30 CHOL 208 mg/dL 04/24/2016 Lipid Ord30 HDL 42.0 mg/dl 04/24/2016 Lipid Ord30 TRIG 98 mg/dL 04/24/2016 Lipid Ord30 LDL 146 mg/dL 04/24/2016 Lipid Ord30 C/HDL 5.0 Ratio 04/24/2016 %Hba1C Ait651 % HbA1c 27316- 6 7.5 % 04/24/2016 %Hba1C Scd730 Gluc Ave 169 mg/dL 04/24/2016 Tsh Ord6 hTSH II 0.82 uIU/mL 04/24/2016 Free T4 Myh408 FREE T4 1.17 ng/dL 04/24/2016 Digoxin Ord9 DIGOXIN 0.9 NG/ML 02/03/2016 Free T4 Mkg893 FREE T4 1.17 ng/dL 12/07/2015 %Hba1C Zqh740 % HbA1c 98964- 6 7.5 % 12/07/2015 %Hba1C Zga626 Gluc Ave 169 mg/dL 12/07/2015 Tsh Ord6 [...] 25.5 pg 12/07/2015 Cbc With Differential Ord2 [place]% 9.3 % 12/07/2015 Cbc With Differential Ord2 MCHC 30.7 pg 12/07/2015 Cbc With Differential Ord2 Eos% 3.9 % 12/07/2015 Cbc With Differential Ord2 PLT 346 K/ul 12/07/2015 Cbc With Differential Ord2 Baso% 0.7 % 12/07/2015 Cbc With Differential Ord2 RDW 16.9 % 12/07/2015 Cbc With Differential Ord2 Neut ABS# 5.17 K/ul 12/07/2015 Cbc With Differential Ord2 Lymph ABS# 1.23 K/ul 12/07/2015 Cbc With Differential Ord2 [place] ABS# 0.7 K/ul 12/07/2015 Cbc With Differential Ord2 Eos ABS# 0.3 K/ul 12/07/2015 Cbc With Differential Ord2 Baso ABS# 0.1 K/ul 12/07/2015 Lipid Ord30 CHOL 196 mg/dL 12/07/2015 Lipid Ord30 HDL 41.0 mg/dl 12/07/2015 Lipid Ord30 TRIG 142 mg/dL 12/07/2015 Lipid Ord30 LDL 127 mg/dL 12/07/2015 Lipid Ord30 C/HDL 4.8 Ratio 12/07/2015 Comp Metabolic Skc922 NA 139 mEq/L 12/07/2015 Comp Metabolic Chg584 K 4.3 mEq/L 12/07/2015 Comp Metabolic Dgt797 CL 101 mEq/L 12/07/2015 Comp Metabolic Frx970 CO2 33.0 mEq/L 12/07/2015 Comp Metabolic Xsl045 ANION GAP 9 12/07/2015 Comp Metabolic Itg350 GLUCOSE 159 mg/dL 12/07/2015 Comp Metabolic Bgx239 Creat 0.6 mg/dL 12/07/2015 Comp Metabolic Wvn565 eGFR 108 ml/min/1.73m2 12/07/2015 Comp Metabolic Tzh797 BUN 13 mg/dL 12/07/2015 Comp Metabolic Fns076 B/C Ratio 22.4 Ratio 12/07/2015 Comp Metabolic Cey320 CALCIUM 9.0 mg/dL 12/07/2015 Comp Metabolic Ozr856 ALK PHOS 60 U/L 12/07/2015 Comp Metabolic Bye152 AST(SGOT) 16 U/L 12/07/2015 Comp Metabolic Ham361 ALT(SGPT) 19 U/L 12/07/2015 Comp Metabolic Ulv552 BILI T 0.6 mg/dL 12/07/2015 Comp Metabolic Hyj969 ALBUMIN 4.0 g/dL 12/07/2015 Comp Metabolic Bze729 TPRO 6.0 g/dL 12/07/2015 Comp Metabolic Bni012 GLOB 2.0 g/dL 12/07/2015 Comp Metabolic Klt246 A/G Ratio 1.9 Ratio 12/07/2015 Comp Metabolic Ksl091 Osmo 281 mOsmo 12/07/2015 Cbc With Differential [...] Tsh Ord6 hTSH II 1.10 uIU/mL 06/14/2015 %Hba1C Pic090 % HbA1c 12600- 6 6.8 % 06/14/2015 %Hba1C Yzj083 Gluc Ave 148 mg/dL 06/14/2015 Free T4 Cuj256 FREE T4 1.31 ng/dL 06/14/2015 CHEM 14 0556571 AST 14 U/L 12/07/2014 CHEM 14 5825894 ALT 12 IU/L 12/07/2014 CHEM 14 6013336 BUN 12 MG/DL 12/07/2014 CHEM 14 6239163 ALBUMIN 3.9 GM/DL 12/07/2014 CHEM 14 0910162 CHLORIDE 103 MMOL/L 12/07/2014 CHEM 14 9911722 BILI TOT 0.6 MG/DL 12/07/2014 CHEM 14 7417635 ALK PHOS 49 U/L 12/07/2014 CHEM 14 3047382 SODIUM 140 MMOL/L 12/07/2014 CHEM 14 2302760 CREATININE 0.57 MG/DL 12/07/2014 CHEM 14 7699415 CALCIUM 9.5 MG/DL 12/07/2014 CHEM 14 9316211 POTASSIUM 4.0 MMOL/L 12/07/2014 CHEM 14 4336006 PROT TOT 6.5 GM/DL 12/07/2014 CHEM 14 2983225 GLUCOSE 110 MG/DL 12/07/2014 CHEM 14 3053327 BICARB 29 MMOL/L 12/07/2014 CHEM 14 6594047 ANION GAP 8 MEQ/L 12/07/2014 A1C HPLC 5906440 A1C HPLC 36364-6 6.4 % 12/07/2014 TSH 5769468 TSH 1.106 uIU/ML 12/07/2014 LIPID GRP HDL TEST 46 MG/DL 12/07/2014 LIPID GRP TRIG 119 MG/DL 12/07/2014 LIPID GRP TEST LDL 108 MG/DL 12/07/2014 LIPID GRP CHOL 178 MG/DL 12/07/2014 LIPID GRP RCHOL/HDL 3.87 RATIO 12/07/2014 LIPID GRP NON-HDL CH 132 MG/DL 12/07/2014 CBC 0143106 WBC 6.4 10e9/L 12/07/2014 CBC 8674576 RBC 4.51 10e12/L 12/07/2014 CBC 9864461 HGB 12.2 g/dL 12/07/2014 CBC 8700238 HCT DET 39.0 % 12/07/2014 CBC 4222235 MCV 86.5 fL 12/07/2014 CBC 9914776 MCH 27.1 pg 12/07/2014 CBC 3823982 MCHC 31.3 g/dL 12/07/2014 CBC 6330612 PLT 325 10e9/L 12/07/2014 CBC 2598157 MPV 10.4 fL 12/07/2014 CBC 0964020 TIM % 62.0 % 12/07/2014 CBC 7457943 LY % 21.4 % 12/07/2014 CBC 7262548 MON % 9.5 % 12/07/2014 CBC 6394476 EOS % 6.3 % 12/07/2014 CBC 0660384 BASO % 0.8 % 12/07/2014 CBC 0258531 RDW 15.8 % 12/07/2014 CBC 6708890 ABS TIM 3.97 10e9/L 12/07/2014 CBC 8800951 ABS LYMPH 1.37 10e9/L 12/07/2014 CBC 6714450 ABS MONO 0.61 10e9/L 12/07/2014 CBC 7039292 ABS EOS 0.40 10e9/L 12/07/2014 CBC 5557739 ABS BASO 0.05 10e9/L 12/07/2014 CBC 4555022 RDW-SD 48.8 fL 12/07/2014 FREE T4 0978521 FREE T4 1.37 NG/DL 12/07/2014 GFR CALC 7731702 GFR AA >60 ML/MIN 12/07/2014 GFR CALC 7957435 GFR NON-AA >60 ML/MIN 12/07/2014 CHEM 14 3216225 AST 17 U/L 11/04/2013 CHEM 14 5678263 ALT 16 IU/L 11/04/2013 CHEM 14 7612909 BUN 13 MG/DL 11/04/2013 CHEM 14 4630266 ALBUMIN 4.3 GM/DL 11/04/2013 CHEM 14 7561260 CHLORIDE 104 MMOL/L 11/04/2013 CHEM 14 4649702 BILI TOT 0.7 MG/DL 11/04/2013 CHEM 14 0016187 ALK PHOS 67 U/L 11/04/2013 CHEM 14 6066816 SODIUM 140 MMOL/L 11/04/2013 CHEM 14 0155715 CREATININE 0.64 MG/DL 11/04/2013 CHEM 14 0114897 CALCIUM 9.5 MG/DL 11/04/2013 CHEM 14 9892632 POTASSIUM 4.0 MMOL/L 11/04/2013 CHEM 14 3783411 PROT TOT 6.1 GM/DL 11/04/2013 CHEM 14 9215926 GLUCOSE 157 MG/DL 11/04/2013 CHEM 14 1928765 BICARB 27 MMOL/L 11/04/2013 CHEM 14 3160945 ANION GAP 9 MEQ/L 11/04/2013 FREE T4 6045932 FREE T4 1.44 NG/DL 11/04/2013 GFR CALC 1985291 GFR AA >60 ML/MIN 11/04/2013 GFR CALC 5054175 GFR NON-AA >60 ML/MIN 11/04/2013 TSH 9382449 TSH 0.841 uIU/ML 11/04/2013 A1C HPLC 7759101 A1C HPLC 75586-5 7.2 % 11/04/2013 LIPID GRP HDL TEST 45 MG/DL 11/04/2013 LIPID GRP TRIG 104 MG/DL 11/04/2013 LIPID GRP TEST LDL 82 MG/DL 11/04/2013 LIPID GRP CHOL 148 MG/DL 11/04/2013 LIPID GRP RCHOL/HDL 3.29 RATIO 11/04/2013 CBC [id number] WBC 6.2 10e9/L 11/04/2013 CBC [id number] RBC 4.38 10e12/L 11/04/2013 CBC [id number] HGB 11.8 g/dL 11/04/2013 CBC [id number] HCT DET 37.5 % 11/04/2013 CBC [id number] MCV 85.6 fL 11/04/2013 CBC [id number] MCH 26.9 pg 11/04/2013 CBC [id number] MCHC 31.5 g/dL 11/04/2013 CBC [id number] PLT 330 10e9/L 11/04/2013 CBC [id number] MPV 10.6 fL 11/04/2013 CBC [id number] TIM % 60.8 % 11/04/2013 CBC [id number] LY % 22.1 % 11/04/2013 CBC [id number] MON % 9.6 % 11/04/2013 CBC [id number] EOS % 6.4 % 11/04/2013 CBC [id number] BASO % 1.1 % 11/04/2013 CBC [id number] RDW 15.6 % 11/04/2013 CBC [id number] ABS TIM 3.77 10e9/L 11/04/2013 CBC [id number] ABS LYMPH 1.37 10e9/L 11/04/2013 CBC [id number] ABS MONO 0.60 10e9/L 11/04/2013 CBC [id number] ABS EOS 0.40 10e9/L 11/04/2013 CBC [id number] ABS BASO 0.07 10e9/L 11/04/2013 CBC 6567942 RDW-SD 48.0 fL 11/04/2013 DIGOXIN 8183289 DIGOXIN 0.5 NG/ML 11/04/2013 A1C HPLC [id number] A1C HPLC 47567-9 7.6 % 07/28/2013 LIPID GRP HDL TEST 38 MG/DL 07/28/2013 LIPID GRP TRIG 137 MG/DL 07/28/2013 LIPID GRP TEST LDL 73 MG/DL 07/28/2013 LIPID GRP CHOL 138 MG/DL 07/28/2013 LIPID GRP RCHOL/HDL 3.63 RATIO 07/28/2013 LIVER PNL [id number] BILI DIR 0.2 MG/DL 07/28/2013 DIGOXIN 8824934 DIGOXIN 0.4 NG/ML 07/28/2013 CBC 1046365 WBC 7.2 10e9/L 07/28/2013 CBC [id number] RBC 4.65 10e12/L 07/28/2013 CBC [id number] HGB 12.6 g/dL 07/28/2013 CBC 8207454 HCT DET 39.6 % 07/28/2013 CBC 4114819 MCV 85.2 fL 07/28/2013 CBC 0744812 MCH 27.1 pg 07/28/2013 CBC 6151695 MCHC 31.8 g/dL 07/28/2013 CBC 2555359 PLT 344 10e9/L 07/28/2013 CBC 6475200 MPV 10.7 fL 07/28/2013 CBC [id number] TIM % 61.4 % 07/28/2013 CBC [id number] LY % 22.4 % 07/28/2013 CBC [id number] MON % 8.4 % 07/28/2013 CBC [id number] EOS % 6.8 % 07/28/2013 CBC [id number] BASO % 1.0 % 07/28/2013 CBC [id number] RDW 15.5 % 07/28/2013 CBC [id number] ABS TIM 4.42 10e9/L 07/28/2013 CBC 1883195 ABS LYMPH 1.61 10e9/L 07/28/2013 CBC [id number] ABS MONO 0.60 10e9/L 07/28/2013 CBC 9459503 ABS EOS 0.49 10e9/L 07/28/2013 CBC 6497278 ABS BASO 0.07 10e9/L 07/28/2013 CBC 3292151 RDW-SD 47.2 fL 07/28/2013 GFR CALC 4406761 GFR AA >60 ML/MIN 07/28/2013 GFR CALC 3841551 GFR NON-AA >60 ML/MIN 07/28/2013 CHEM 14 9993139 AST 20 U/L 07/28/2013 CHEM 14 8445865 ALT 19 IU/L 07/28/2013 CHEM 14 4017948 BUN 13 MG/DL 07/28/2013 CHEM 14 5783787 ALBUMIN 4.1 GM/DL 07/28/2013 CHEM 14 6023615 CHLORIDE 102 MMOL/L 07/28/2013 CHEM 14 9453704 BILI TOT 0.7 MG/DL 07/28/2013 CHEM 14 0531199 ALK PHOS 62 U/L 07/28/2013 CHEM 14 9667854 SODIUM 139 MMOL/L 07/28/2013 CHEM 14 0295244 CREATININE 0.66 MG/DL 07/28/2013 CHEM 14 9816738 CALCIUM 9.3 MG/DL 07/28/2013 CHEM 14 9293489 POTASSIUM 4.4 MMOL/L 07/28/2013 CHEM 14 0392400 PROT TOT 6.2 GM/DL 07/28/2013 CHEM 14 0784437 GLUCOSE 160 MG/DL 07/28/2013 CHEM 14 3261113 BICARB 29 MMOL/L 07/28/2013 CHEM 14 0930290 ANION GAP 8 MEQ/L 07/28/2013 DIGOXIN 5903430 DIGOXIN 0.6 NG/ML 05/12/2013 GFR CALC 9428910 GFR AA >60 ML/MIN 04/29/2013 GFR CALC 8981454 GFR NON-AA >60 ML/MIN 04/29/2013 A1C 0023967 A1C HPLC 04322- 6 7.5 % 04/29/2013 TSH 9800567 TSH 1.161 uIU/ML 04/29/2013 CHEM 14 8593698 AST 14 U/L 04/29/2013 CHEM 14 2235523 ALT 14 IU/L 04/29/2013 CHEM 14 3421386 BUN 13 MG/DL 04/29/2013 CHEM 14 2312919 ALBUMIN 4.1 GM/DL 04/29/2013 CHEM 14 4502989 CHLORIDE 102 MMOL/L 04/29/2013 CHEM 14 9731979 BILI TOT 0.7 MG/DL 04/29/2013 CHEM 14 8234387 ALK PHOS 75 U/L 04/29/2013 CHEM 14 6276187 SODIUM 139 MMOL/L 04/29/2013 CHEM 14 7494646 CREATININE 0.62 MG/DL 04/29/2013 CHEM 14 8593686 CALCIUM 9.3 MG/DL 04/29/2013 CHEM 14 2340968 POTASSIUM 4.0 MMOL/L 04/29/2013 CHEM 14 1915472 PROT TOT 6.5 GM/DL 04/29/2013 CHEM 14 6721065 GLUCOSE 152 MG/DL 04/29/2013 CHEM 14 6225396 BICARB 31 MMOL/L 04/29/2013 CHEM 14 0470167 ANION GAP 6 MEQ/L 04/29/2013 CBC 3083435 WBC 7.4 10e9/L 04/29/2013 CBC 5021213 RBC 4.70 10e12/L 04/29/2013 CBC 8823300 HGB 12.8 g/dL 04/29/2013 CBC 9453723 HCT DET 40.1 % 04/29/2013 CBC 1408301 MCV 85.3 fL 04/29/2013 CBC 6158608 MCH 27.2 pg 04/29/2013 CBC 8564502 MCHC 31.9 g/dL 04/29/2013 CBC 6441858 PLT 312 10e9/L 04/29/2013 CBC 8177132 MPV 10.4 fL 04/29/2013 CBC 1375214 TIM % 64.9 % 04/29/2013 CBC 2794385 LY % 20.0 % 04/29/2013 CBC 7334707 MON % 8.6 % 04/29/2013 CBC 8785603 EOS % 5.3 % 04/29/2013 CBC 9550792 BASO % 1.2 % 04/29/2013 CBC 6574243 RDW 15.4 % 04/29/2013 CBC 9406710 ABS TIM 4.80 10e9/L 04/29/2013 CBC 4347232 ABS LYMPH 1.48 10e9/L 04/29/2013 CBC 2567873 ABS MONO 0.64 10e9/L 04/29/2013 CBC 5496129 ABS EOS 0.39 10e9/L 04/29/2013 CBC 7717032 ABS BASO 0.09 10e9/L 04/29/2013 CBC 6391987 RDW-SD 47.3 fL 04/29/2013 LIPID GRP 3403609 HDL TEST 43 MG/DL 04/29/2013 LIPID GRP TRIG 111 MG/DL 04/29/2013 LIPID GRP TEST LDL 65 MG/DL 04/29/2013 LIPID GRP CHOL 130 MG/DL 04/29/2013 LIPID GRP RCHOL/HDL 3.02 RATIO 04/29/2013 TSH 7523971 TSH 1.406 uIU/ML 12/28/2012 A1C 6437233 A1C HPLC 74332- 6 7.2 % 12/28/2012 LIPID GRP HDL TEST 54 MG/DL 12/27/2012 LIPID GRP TRIG 94 MG/DL 12/27/2012 LIPID GRP TEST LDL 42 MG/DL 12/27/2012 LIPID GRP CHOL 115 MG/DL 12/27/2012 LIPID GRP RCHOL/HDL 2.13 RATIO 12/27/2012 GFR CALC 2712954 GFR AA >60 ML/MIN 12/27/2012 GFR CALC 7121629 GFR NON-AA >60 ML/MIN 12/27/2012 CHEM 14 3688601 AST 14 U/L 12/27/2012 CHEM 14 6322299 ALT 13 IU/L 12/27/2012 CHEM 14 1339049 BUN 13 MG/DL 12/27/2012 CHEM 14 7469401 ALBUMIN 4.5 GM/DL 12/27/2012 CHEM 14 4161570 CHLORIDE 105 MMOL/L 12/27/2012 CHEM 14 9773684 BILI TOT 0.8 MG/DL 12/27/2012 CHEM 14 4438052 ALK PHOS 69 U/L 12/27/2012 CHEM 14 4456550 SODIUM 142 MMOL/L 12/27/2012 CHEM 14 0410385 CREATININE 0.73 MG/DL 12/27/2012 CHEM 14 6538485 CALCIUM 9.7 MG/DL 12/27/2012 CHEM 14 4740952 POTASSIUM 4.1 MMOL/L 12/27/2012 CHEM 14 7215357 PROT TOT 6.8 GM/DL 12/27/2012 CHEM 14 8249629 GLUCOSE 133 MG/DL 12/27/2012 CHEM 14 4244327 BICARB 30 MMOL/L 12/27/2012 CHEM 14 2923935 ANION GAP 7 MEQ/L 12/27/2012 CBC 1427327 WBC 6.8 10e9/L 12/27/2012 CBC 5224093 RBC 4.72 10e12/L 12/27/2012 CBC 6392961 HGB 12.5 g/dL 12/27/2012 CBC 3219717 HCT DET 39.6 % 12/27/2012 CBC 1207300 MCV 83.9 fL 12/27/2012 CBC 7104785 MCH 26.5 pg 12/27/2012 CBC 4386160 MCHC 31.6 g/dL 12/27/2012 CBC 3957534 PLT 336 10e9/L 12/27/2012 CBC 4131587 MPV 10.4 fL 12/27/2012 CBC 4234877 TIM % 60.7 % 12/27/2012 CBC 4419109 LY % 24.6 % 12/27/2012 CBC 0722462 MON % 8.4 % 12/27/2012 CBC 0394734 EOS % 5.3 % 12/27/2012 CBC 9751884 BASO % 1.0 % 12/27/2012 CBC 4219713 RDW 16.6 % 12/27/2012 CBC 8293927 ABS TIM 4.13 10e9/L 12/27/2012 CBC 1199370 ABS LYMPH 1.67 10e9/L 12/27/2012 CBC 6892457 ABS MONO 0.57 10e9/L 12/27/2012 CBC 8520339 ABS EOS 0.36 10e9/L 12/27/2012 CBC 0906040 ABS BASO 0.07 10e9/L 12/27/2012 CBC 2508122 RDW-SD 50.1 fL 12/27/2012 GFR CALC 0144609 GFR AA >60 ML/MIN 08/27/2012 GFR CALC 5705572 GFR NON-AA >60 ML/MIN 08/27/2012 CHEM 14 8353987 AST 15 U/L 08/27/2012 CHEM 14 6043398 ALT 17 IU/L 08/27/2012 CHEM 14 8797599 BUN 14 MG/DL 08/27/2012 CHEM 14 6413736 ALBUMIN 4.2 GM/DL 08/27/2012 CHEM 14 5710002 CHLORIDE 103 MMOL/L 08/27/2012 CHEM 14 8306449 BILI TOT 0.6 MG/DL 08/27/2012 CHEM 14 5560596 ALK PHOS 86 U/L 08/27/2012 CHEM 14 3957640 SODIUM 141 MMOL/L 08/27/2012 CHEM 14 4569315 CREATININE 0.64 MG/DL 08/27/2012 CHEM 14 2566190 CALCIUM 9.5 MG/DL 08/27/2012 CHEM 14 5620058 POTASSIUM 4.1 MMOL/L 08/27/2012 CHEM 14 5082142 PROT TOT 6.1 GM/DL 08/27/2012 CHEM 14 5300639 GLUCOSE 151 MG/DL 08/27/2012 CHEM 14 5532190 BICARB 30 MMOL/L 08/27/2012 CHEM 14 7523857 ANION GAP 8 MEQ/L 08/27/2012 FREE T4 8952753 FREE T4 1.36 NG/DL 08/27/2012 CBC 8349732 WBC 7.8 10e9/L 08/27/2012 CBC 1170233 RBC 4.54 10e12/L 08/27/2012 CBC 4748859 HGB 12.0 g/dL 08/27/2012 CBC 3068435 HCT DET 37.9 % 08/27/2012 CBC 3092729 MCV 83.5 fL 08/27/2012 CBC 6774635 MCH 26.4 pg 08/27/2012 CBC 1353698 MCHC 31.7 g/dL 08/27/2012 CBC 2729757 PLT 370 10e9/L 08/27/2012 CBC 7573531 MPV 10.7 fL 08/27/2012 CBC 8200203 TIM % 65.7 % 08/27/2012 CBC 6568050 LY % 19.5 % 08/27/2012 CBC 6271516 MON % 9.0 % 08/27/2012 CBC 2124232 EOS % 5.0 % 08/27/2012 CBC 1901265 BASO % 0.8 % 08/27/2012 CBC 9159347 RDW 15.4 % 08/27/2012 CBC 2549039 ABS TIM 5.12 10e9/L 08/27/2012 CBC 9460669 ABS LYMPH 1.52 10e9/L 08/27/2012 CBC 0697883 ABS MONO 0.70 10e9/L 08/27/2012 CBC 2997331 ABS EOS 0.39 10e9/L 08/27/2012 CBC 0751161 ABS BASO 0.06 10e9/L 08/27/2012 CBC 2796687 RDW-SD 46.3 fL 08/27/2012 A1C HPLC 2490277 A1C HPLC 36225-6 7.3 % 08/27/2012 LIPID GRP HDL TEST 41 MG/DL 08/27/2012 LIPID GRP TRIG 120 MG/DL 08/27/2012 LIPID GRP TEST LDL 67 MG/DL 08/27/2012 LIPID GRP CHOL 132 MG/DL 08/27/2012 LIPID GRP RCHOL/HDL 3.22 RATIO 08/27/2012 TSH 3022468 TSH 0.933 uIU/ML 08/27/2012 DIGOXIN 5879819 DIGOXIN 1.4 NG/ML 07/15/2012 CBC 7386154 WBC 6.3 10e9/L 07/15/2012 CBC 3739802 RBC 4.44 10e12/L 07/15/2012 CBC 6954513 HGB 11.8 g/dL 07/15/2012 CBC 3772756 HCT DET 36.9 % 07/15/2012 CBC 1429828 MCV 83.1 fL 07/15/2012 CBC 5985058 MCH 26.6 pg 07/15/2012 CBC 6142132 MCHC 32.0 g/dL 07/15/2012 CBC 0962466 PLT 316 10e9/L 07/15/2012 CBC 5692174 MPV 10.3 fL 07/15/2012 CBC 4449150 TIM % 64.4 % 07/15/2012 CBC 8289237 LY % 19.6 % 07/15/2012 CBC 4351565 MON % 9.1 % 07/15/2012 CBC 3775641 EOS % 6.1 % 07/15/2012 CBC 3580496 BASO % 0.8 % 07/15/2012 CBC 5349532 RDW 15.3 % 07/15/2012 CBC 2267023 ABS TIM 4.06 10e9/L 07/15/2012 CBC 5488366 ABS LYMPH 1.23 10e9/L 07/15/2012 CBC 5845416 ABS MONO 0.57 10e9/L 07/15/2012 CBC 1595624 ABS EOS 0.38 10e9/L 07/15/2012 CBC 7930652 ABS BASO 0.05 10e9/L 07/15/2012 CBC 6438825 RDW-SD 46.2 fL 07/15/2012 DIGOXIN 1791566 DIGOXIN 1.4 NG/ML 07/04/2012 BMP 3738363 GLUCOSE 137 MG/DL 07/04/2012 BMP CREATININE 0.86 MG/DL 07/04/2012 BMP BUN 14 MG/DL 07/04/2012 BMP SODIUM 140 MMOL/L 07/04/2012 BMP 8511653 POTASSIUM 4.5 MMOL/L 07/04/2012 BMP 4383458 CHLORIDE 103 MMOL/L 07/04/2012 BMP 3829860 BICARB 28 MMOL/L 07/04/2012 BMP 4034897 ANION GAP 9 MEQ/L 07/04/2012 BMP 9639639 CALCIUM 9.7 MG/DL 07/04/2012 CBC 9693920 WBC 6.9 10e9/L 07/04/2012 CBC 0614941 RBC 4.56 10e12/L 07/04/2012 CBC 9281730 HGB 12.2 g/dL 07/04/2012 CBC 0040958 HCT DET 38.1 % 07/04/2012 CBC 1678251 MCV 83.6 fL 07/04/2012 CBC 7503935 MCH 26.8 pg 07/04/2012 CBC 1803358 MCHC 32.0 g/dL 07/04/2012 CBC 7854067 PLT 382 10e9/L 07/04/2012 CBC 3022295 MPV 10.6 fL 07/04/2012 CBC 8989404 TIM % 58.7 % 07/04/2012 CBC 8827531 LY % 23.7 % 07/04/2012 CBC 7833651 MON % 10.2 % 07/04/2012 CBC 6168507 EOS % 6.4 % 07/04/2012 CBC 1906065 BASO % 1.0 % 07/04/2012 CBC 1987760 RDW 15.8 % 07/04/2012 CBC 4703561 ABS TIM 4.05 10e9/L 07/04/2012 CBC 2305968 ABS LYMPH 1.64 10e9/L 07/04/2012 CBC 7421953 ABS MONO 0.70 10e9/L 07/04/2012 CBC 5990049 ABS EOS 0.44 10e9/L 07/04/2012 CBC 3920052 ABS BASO 0.07 10e9/L 07/04/2012 CBC 7580057 RDW-SD 47.5 fL 07/04/2012 GFR CALC 4110568 GFR AA >60 ML/MIN 07/04/2012 GFR CALC 3087007 GFR NON-AA >60 ML/MIN 07/04/2012 A1C HPLC 1736045 A1C HPLC 14752-0 7.1 % 03/27/2012 GFR CALC 0416614 GFR AA >60 ML/MIN 03/26/2012 GFR CALC 9570334 GFR NON-AA >60 ML/MIN 03/26/2012 LIPID GRP HDL TEST 40 MG/DL 03/26/2012 LIPID GRP TRIG 93 MG/DL 03/26/2012 LIPID GRP TEST LDL 62 MG/DL 03/26/2012 LIPID GRP CHOL 121 MG/DL 03/26/2012 LIPID GRP RCHOL/HDL 3.03 RATIO 03/26/2012 TSH 5931009 TSH 0.842 uIU/ML 03/26/2012 FREE T4 7153435 FREE T4 1.30 NG/DL 03/26/2012 CBC 4412307 WBC 5.3 10e9/L 03/26/2012 CBC 8345218 RBC 4.70 10e12/L 03/26/2012 CBC 9846329 HGB 12.1 g/dL 03/26/2012 CBC 3363170 HCT DET 38.1 % 03/26/2012 CBC 1925269 MCV 81.1 fL 03/26/2012 CBC 7641966 MCH 25.7 pg 03/26/2012 CBC 5343000 MCHC 31.8 g/dL 03/26/2012 CBC 3426143 PLT 315 10e9/L 03/26/2012 CBC 6932695 MPV 10.9 fL 03/26/2012 CBC 4523189 TIM % 54.8 % 03/26/2012 CBC 5116780 LY % 25.8 % 03/26/2012 CBC 9806065 MON % 11.6 % 03/26/2012 CBC 6117654 EOS % 7.0 % 03/26/2012 CBC 0539470 BASO % 0.8 % 03/26/2012 CBC 5196923 RDW 16.7 % 03/26/2012 CBC 3760443 ABS TIM 2.90 10e9/L 03/26/2012 CBC 7665953 ABS LYMPH 1.37 10e9/L 03/26/2012 CBC 7116491 ABS MONO 0.61 10e9/L 03/26/2012 CBC 6974729 ABS EOS 0.37 10e9/L 03/26/2012 CBC 8523972 ABS BASO 0.04 10e9/L 03/26/2012 CBC 4912946 RDW-SD 48.8 fL 03/26/2012 CHEM 14 2382613 AST 18 U/L 03/26/2012 CHEM 14 5389878 ALT 17 IU/L 03/26/2012 CHEM 14 9363013 BUN 16 MG/DL 03/26/2012 CHEM 14 6924919 ALBUMIN 4.3 GM/DL 03/26/2012 CHEM 14 1029505 CHLORIDE 103 MMOL/L 03/26/2012 CHEM 14 1495223 BILI TOT 0.9 MG/DL 03/26/2012 CHEM 14 7424392 ALK PHOS 79 U/L 03/26/2012 CHEM 14 7265626 SODIUM 140 MMOL/L 03/26/2012 CHEM 14 5171355 CREATININE 0.70 MG/DL 03/26/2012 CHEM 14 1213425 CALCIUM 9.6 MG/DL 03/26/2012 CHEM 14 4726007 POTASSIUM 4.1 MMOL/L 03/26/2012 CHEM 14 3160052 PROT TOT 6.3 GM/DL 03/26/2012 CHEM 14 6606219 GLUCOSE 142 MG/DL 03/26/2012 CHEM 14 2913445 BICARB 29 MMOL/L 03/26/2012 CHEM 14 7993864 ANION GAP 8 MEQ/L 03/26/2012 LIPID GRP HDL TEST 42 MG/DL 01/08/2012 LIPID GRP 0453912 TRIG 105 MG/DL 01/08/2012 LIPID GRP 9730167 TEST LDL 51 MG/DL 01/08/2012 LIPID GRP 0228513 CHOL 114 MG/DL 01/08/2012 LIPID GRP 6994010 RCHOL/HDL 2.71 RATIO 01/08/2012 CHEM 14 0917310 AST 24 U/L 01/08/2012 CHEM 14 1559165 ALT 28 IU/L 01/08/2012 CHEM 14 5312785 BUN 15 MG/DL 01/08/2012 CHEM 14 8568665 ALBUMIN 4.3 GM/DL 01/08/2012 CHEM 14 3037956 CHLORIDE 104 MMOL/L 01/08/2012 CHEM 14 7190695 BILI TOT 0.6 MG/DL 01/08/2012 CHEM 14 6765720 ALK PHOS 83 U/L 01/08/2012 CHEM 14 8325808 SODIUM 141 MMOL/L 01/08/2012 CHEM 14 8356207 CREATININE 0.64 MG/DL 01/08/2012 CHEM 14 9615295 CALCIUM 9.4 MG/DL 01/08/2012 CHEM 14 2742085 POTASSIUM 4.0 MMOL/L 01/08/2012 CHEM 14 8022083 PROT TOT 6.7 GM/DL 01/08/2012 CHEM 14 0163100 GLUCOSE 145 MG/DL 01/08/2012 CHEM 14 9495273 BICARB 28 MMOL/L 01/08/2012 CHEM 14 7434908 ANION GAP 9 MEQ/L 01/08/2012 CBC 6422639 WBC 5.8 10e9/L 01/08/2012 CBC 6934044 RBC 4.36 10e12/L 01/08/2012 CBC 9558849 HGB 11.6 g/dL 01/08/2012 CBC 4771059 HCT DET 37.4 % 01/08/2012 CBC 2481540 MCV 85.8 fL 01/08/2012 CBC 4111212 MCH 26.6 pg 01/08/2012 CBC 4384771 MCHC 31.0 g/dL 01/08/2012 CBC 7337047 PLT 319 10e9/L 01/08/2012 CBC 6450459 MPV 10.5 fL 01/08/2012 CBC 3289420 TIM % 62.2 % 01/08/2012 CBC 1062250 LY % 20.7 % 01/08/2012 CBC 9881673 MON % 9.3 % 01/08/2012 CBC 5231417 EOS % 6.4 % 01/08/2012 CBC 9495148 BASO % 1.4 % 01/08/2012 CBC 1115873 RDW 14.9 % 01/08/2012 CBC 8045652 ABS TIM 3.61 10e9/L 01/08/2012 CBC 9969779 ABS LYMPH 1.20 10e9/L 01/08/2012 CBC 3416343 ABS MONO 0.54 10e9/L 01/08/2012 CBC 4476694 ABS EOS 0.37 10e9/L 01/08/2012 CBC 7054889 ABS BASO 0.08 10e9/L 01/08/2012 CBC 3672748 RDW-SD 44.9 fL 01/08/2012 GFR CALC 2517455 GFR AA >60 ML/MIN 01/08/2012 GFR CALC 6590047 GFR NON-AA >60 ML/MIN 01/08/2012 A1C HPLC 8802194 A1C HPLC 42715-9 7.2 % 01/08/2012 Review of Systems System Result Effective Dates Constitutional recent illness 09/23/2018 Constitutional fatigue 09/23/2018 Constitutional No fever 09/23/2018 Eyes No eye discharge 09/23/2018 Eyes No eye erythema 09/23/2018 Ears/Nose/Throat/Neck No nasal discharge 09/23/2018 Ears/Nose/Throat/Neck No sore throat 09/23/2018 Ears/Nose/Throat/Neck No sinus congestion 09/23/2018 Cardiovascular No chest pain/pressure 09/23/2018 Respiratory asthma 09/23/2018 Respiratory No chest congestion 09/23/2018 Respiratory chest tightness 09/23/2018 Gastrointestinal No abdominal pain 09/23/2018 Gastrointestinal No constipation 09/23/2018 Gastrointestinal No diarrhea 09/23/2018 Gastrointestinal No nausea 09/23/2018 Gastrointestinal No vomiting 09/23/2018 Musculoskeletal No stiffness 09/23/2018 Musculoskeletal No swelling 09/23/2018 Musculoskeletal No muscle weakness 09/23/2018 Musculoskeletal No myalgias 09/23/2018 Neurologic No dizziness 09/23/2018 Neurologic No headache 09/23/2018 Neurologic No neck pain 09/23/2018 Neurologic No syncope 09/23/2018 Psychiatric anxiety 09/23/2018 Psychiatric No depression 09/23/2018 Endocrine diabetes mellitus type 2 09/23/2018 Constitutional No anorexia 09/23/2018 Constitutional No night sweats 09/23/2018 Constitutional No chills 09/23/2018 Constitutional No diaphoresis 09/23/2018 Constitutional No insomnia 09/23/2018 Constitutional No malaise 09/23/2018 Ears/Nose/Throat/Neck nasal allergies 09/23/2018 Ears/Nose/Throat/Neck No otalgia 09/23/2018 Ears/Nose/Throat/Neck postnasal drip 09/23/2018 Respiratory productive sputum 09/23/2018 Respiratory cough 09/23/2018 Respiratory dyspnea on exertion 09/23/2018 Respiratory wheezing 09/23/2018 Musculoskeletal joint complaint 09/23/2018 Neurologic No alteration of consciousness 09/23/2018 Cardiovascular No fatigue 09/23/2018 Constitutional No recent illness 05/27/2018 Constitutional No fatigue 05/27/2018 Constitutional No fever 05/27/2018 Eyes No eye discharge 05/27/2018 Eyes No eye erythema 05/27/2018 Ears/Nose/Throat/Neck No nasal discharge 05/27/2018 Ears/Nose/Throat/Neck No sore throat 05/27/2018 Ears/Nose/Throat/Neck No sinus congestion 05/27/2018 Cardiovascular No chest pain/pressure 05/27/2018 Respiratory asthma 05/27/2018 Respiratory No chest congestion 05/27/2018 Gastrointestinal No abdominal pain 05/27/2018 Gastrointestinal No constipation 05/27/2018 Gastrointestinal No diarrhea 05/27/2018 Gastrointestinal No nausea 05/27/2018 Gastrointestinal No vomiting 05/27/2018 Genitourinary/Nephrology No dysuria 05/27/2018 Musculoskeletal No stiffness 05/27/2018 Musculoskeletal No swelling 05/27/2018 Musculoskeletal No muscle weakness 05/27/2018 Musculoskeletal No myalgias 05/27/2018 Dermatologic No rash 05/27/2018 Neurologic No dizziness 05/27/2018 Neurologic No headache 05/27/2018 Neurologic No neck pain 05/27/2018 Neurologic No syncope 05/27/2018 Psychiatric No anxiety 05/27/2018 Psychiatric No depression 05/27/2018 Endocrine diabetes mellitus type 2 05/27/2018 Constitutional No recent illness 01/21/2018 Constitutional No fatigue 01/21/2018 Constitutional No fever 01/21/2018 Eyes No eye discharge 01/21/2018 Eyes No eye erythema 01/21/2018 Ears/Nose/Throat/Neck No nasal discharge 01/21/2018 Ears/Nose/Throat/Neck No sore throat 01/21/2018 Ears/Nose/Throat/Neck No sinus congestion 01/21/2018 Cardiovascular No chest pain/pressure 01/21/2018 Respiratory asthma 01/21/2018 Respiratory No chest congestion 01/21/2018 Respiratory chest tightness 01/21/2018 Gastrointestinal No abdominal pain 01/21/2018 Gastrointestinal No constipation 01/21/2018 Gastrointestinal No diarrhea 01/21/2018 Gastrointestinal No nausea 01/21/2018 Gastrointestinal No vomiting 01/21/2018 Genitourinary/Nephrology No dysuria 01/21/2018 Musculoskeletal No stiffness 01/21/2018 Musculoskeletal No swelling 01/21/2018 Musculoskeletal No muscle weakness 01/21/2018 Musculoskeletal No myalgias 01/21/2018 Dermatologic No rash 01/21/2018 Neurologic No dizziness 01/21/2018 Neurologic No headache 01/21/2018 Neurologic No neck pain 01/21/2018 Neurologic No syncope 01/21/2018 Psychiatric No anxiety 01/21/2018 Psychiatric No depression 01/21/2018 Endocrine diabetes mellitus type 2 01/21/2018 Constitutional recent illness 12/04/2017 Constitutional No anorexia 12/04/2017 Constitutional No night sweats 12/04/2017 Constitutional chills 12/04/2017 Constitutional No diaphoresis 12/04/2017 Constitutional fatigue 12/04/2017 Constitutional No fever 12/04/2017 Constitutional No insomnia 12/04/2017 Constitutional No malaise 12/04/2017 Eyes No eye discharge 12/04/2017 Eyes No eye erythema 12/04/2017 Ears/Nose/Throat/Neck dizziness 12/04/2017 Cardiovascular No chest pain/pressure 12/04/2017 Cardiovascular exercise intolerance 12/04/2017 Cardiovascular fatigue 12/04/2017 Respiratory No productive sputum 12/04/2017 Respiratory No cough 12/04/2017 Respiratory dyspnea on exertion 12/04/2017 Gastrointestinal No abdominal pain 12/04/2017 Gastrointestinal No constipation 12/04/2017 Gastrointestinal No diarrhea 12/04/2017 Musculoskeletal neck pain 12/04/2017 Neurologic No alteration of consciousness 12/04/2017 Psychiatric anxiety 12/04/2017 Constitutional recent illness 11/13/2017 Constitutional No anorexia 11/13/2017 Constitutional No night sweats 11/13/2017 Constitutional chills 11/13/2017 Constitutional No diaphoresis 11/13/2017 Constitutional fatigue 11/13/2017 Constitutional No fever 11/13/2017 Constitutional No malaise 11/13/2017 Constitutional No insomnia 11/13/2017 Constitutional No weight gain 11/13/2017 Constitutional No weight loss 11/13/2017 Eyes No eye erythema 11/13/2017 Eyes No eye discharge 11/13/2017 Ears/Nose/Throat/Neck dizziness 11/13/2017 Ears/Nose/Throat/Neck sinus congestion 11/13/2017 Musculoskeletal neck pain 11/13/2017 Ears/Nose/Throat/Neck nasal allergies 11/13/2017 Ears/Nose/Throat/Neck nasal discharge 11/13/2017 Cardiovascular fatigue 11/13/2017 Cardiovascular exercise intolerance 11/13/2017 Cardiovascular No chest pain/pressure 11/13/2017 Respiratory No productive sputum 11/13/2017 Respiratory No cough 11/13/2017 Respiratory dyspnea on exertion 11/13/2017 Gastrointestinal No abdominal pain 11/13/2017 Gastrointestinal No constipation 11/13/2017 Gastrointestinal No diarrhea 11/13/2017 Genitourinary/Nephrology No dysuria 11/13/2017 Dermatologic No rash 11/13/2017 Neurologic No alteration of consciousness 11/13/2017 Psychiatric anxiety 11/13/2017 Constitutional recent illness 10/30/2017 Constitutional No anorexia 10/30/2017 Constitutional No night sweats 10/30/2017 Constitutional No chills 10/30/2017 Constitutional No diaphoresis 10/30/2017 Constitutional fatigue 10/30/2017 Constitutional No fever 10/30/2017 Constitutional No insomnia 10/30/2017 Constitutional No malaise 10/30/2017 Constitutional No weight loss 10/30/2017 Constitutional No weight gain 10/30/2017 Eyes No eye discharge 10/30/2017 Eyes No eye erythema 10/30/2017 Ears/Nose/Throat/Neck No dizziness 10/30/2017 Ears/Nose/Throat/Neck No headache 10/30/2017 Ears/Nose/Throat/Neck nasal allergies 10/30/2017 Ears/Nose/Throat/Neck nasal discharge 10/30/2017 Ears/Nose/Throat/Neck No otalgia 10/30/2017 Ears/Nose/Throat/Neck No sinus congestion 10/30/2017 Ears/Nose/Throat/Neck postnasal drip 10/30/2017 Ears/Nose/Throat/Neck No sore throat 10/30/2017 Cardiovascular No chest pain/pressure 10/30/2017 Respiratory productive sputum 10/30/2017 Respiratory chest congestion 10/30/2017 Respiratory cough 10/30/2017 Respiratory dyspnea on exertion 10/30/2017 Respiratory chest tightness 10/30/2017 Respiratory wheezing 10/30/2017 Gastrointestinal No abdominal pain 10/30/2017 Gastrointestinal No diarrhea 10/30/2017 Gastrointestinal No constipation 10/30/2017 Genitourinary/Nephrology No dysuria 10/30/2017 Musculoskeletal joint complaint 10/30/2017 Dermatologic No rash 10/30/2017 Neurologic No alteration of consciousness 10/30/2017 Psychiatric anxiety 10/30/2017 Constitutional recent illness 09/20/2017 Constitutional No anorexia 09/20/2017 Constitutional No night sweats 09/20/2017 Constitutional No chills 09/20/2017 Constitutional No diaphoresis 09/20/2017 Constitutional fatigue 09/20/2017 Constitutional No fever 09/20/2017 Constitutional No insomnia 09/20/2017 Constitutional No malaise 09/20/2017 Constitutional No weight loss 09/20/2017 Constitutional No weight gain 09/20/2017 Eyes No eye discharge 09/20/2017 Eyes No eye erythema 09/20/2017 Ears/Nose/Throat/Neck No dizziness 09/20/2017 Ears/Nose/Throat/Neck No headache 09/20/2017 Cardiovascular No chest pain/pressure 09/20/2017 Cardiovascular No dyspnea 09/20/2017 Cardiovascular No edema 09/20/2017 Respiratory No cough 09/20/2017 Gastrointestinal No abdominal pain 09/20/2017 Gastrointestinal gastroesophageal reflux 09/20/2017 Gastrointestinal No constipation 09/20/2017 Gastrointestinal No diarrhea 09/20/2017 Gastrointestinal No melena 09/20/2017 Genitourinary/Nephrology No dysuria 09/20/2017 Musculoskeletal No joint complaint 09/20/2017 Dermatologic No rash 09/20/2017 Neurologic No alteration of consciousness 09/20/2017 Psychiatric anxiety 09/20/2017 Endocrine No dry or coarse skin 09/20/2017 Constitutional recent illness 05/29/2017 Constitutional fatigue 05/29/2017 Constitutional No fever 05/29/2017 Eyes No eye discharge 05/29/2017 Eyes No eye erythema 05/29/2017 Ears/Nose/Throat/Neck No nasal discharge 05/29/2017 Ears/Nose/Throat/Neck No sore throat 05/29/2017 Ears/Nose/Throat/Neck No sinus congestion 05/29/2017 Cardiovascular No chest pain/pressure 05/29/2017 Respiratory asthma 05/29/2017 Respiratory No chest congestion 05/29/2017 Respiratory chest tightness 05/29/2017 Gastrointestinal No abdominal pain 05/29/2017 Gastrointestinal No constipation 05/29/2017 Gastrointestinal No diarrhea 05/29/2017 Gastrointestinal No nausea 05/29/2017 Gastrointestinal No vomiting 05/29/2017 Genitourinary/Nephrology No dysuria 05/29/2017 Musculoskeletal No stiffness 05/29/2017 Musculoskeletal No swelling 05/29/2017 Musculoskeletal No muscle weakness 05/29/2017 Musculoskeletal No myalgias 05/29/2017 Dermatologic No rash 05/29/2017 Neurologic No dizziness 05/29/2017 Neurologic No headache 05/29/2017 Neurologic No neck pain 05/29/2017 Psychiatric anxiety 05/29/2017 Psychiatric No depression 05/29/2017 Ears/Nose/Throat/Neck hearing loss 05/29/2017 Ears/Nose/Throat/Neck otalgia 05/29/2017 Constitutional recent illness 05/14/2017 Constitutional fatigue 05/14/2017 Constitutional fever 05/14/2017 Eyes No eye discharge 05/14/2017 Eyes No eye erythema 05/14/2017 Ears/Nose/Throat/Neck nasal allergies 05/14/2017 Ears/Nose/Throat/Neck No nasal discharge 05/14/2017 Cardiovascular chest pain/pressure 05/14/2017 Respiratory asthma 05/14/2017 Respiratory No chest congestion 05/14/2017 Respiratory chest tightness 05/14/2017 Respiratory cough 05/14/2017 Gastrointestinal No abdominal pain 05/14/2017 Musculoskeletal No joint complaint 05/14/2017 Dermatologic No rash 05/14/2017 Neurologic No alteration of consciousness 05/14/2017 Neurologic No mental status change 05/14/2017 Respiratory dyspnea on exertion 05/14/2017 Musculoskeletal back pain 05/14/2017 Constitutional recent illness 03/06/2017 Constitutional fatigue 03/06/2017 Constitutional No fever 03/06/2017 Eyes No eye discharge 03/06/2017 Eyes No eye erythema 03/06/2017 Ears/Nose/Throat/Neck No nasal discharge 03/06/2017 Ears/Nose/Throat/Neck No sore throat 03/06/2017 Ears/Nose/Throat/Neck No sinus congestion 03/06/2017 Cardiovascular No chest pain/pressure 03/06/2017 Respiratory asthma 03/06/2017 Respiratory No chest congestion 03/06/2017 Respiratory chest tightness 03/06/2017 Gastrointestinal No abdominal pain 03/06/2017 Gastrointestinal No constipation 03/06/2017 Gastrointestinal No diarrhea 03/06/2017 Gastrointestinal No nausea 03/06/2017 Gastrointestinal No vomiting 03/06/2017 Genitourinary/Nephrology No dysuria 03/06/2017 Musculoskeletal No stiffness 03/06/2017 Musculoskeletal No swelling 03/06/2017 Musculoskeletal No muscle weakness 03/06/2017 Musculoskeletal No myalgias 03/06/2017 Dermatologic No rash [...] 1994 Constitutional general appearance Overall: well developed 09/23/2018 None Full Exam - General 1994 Constitutional general appearance Overall: in no acute distress 09/23/2018 None Full Exam - General 1994 Constitutional general appearance Overall: well nourished 09/23/2018 None Full Exam - General 1994 Eyes pupils and irises Overall: pupils equal, round, reactive to light and accomodation 09/23/2018 None Full Exam - General 1994 Ears/Nose/Throat otoscopic exam Overall: external auditory canals clear 09/23/2018 None Full Exam - General 1994 Ears/Nose/Throat otoscopic exam Overall: tympanic membranes clear 09/23/2018 None Full Exam - General 1994 Respiratory auscultation Overall: breath sounds clear bilaterally 09/23/2018 None Full Exam - General 1994 Respiratory respiratory effort/rhythm Overall: no retractions 09/23/2018 None Full Exam - General 1994 Respiratory respiratory effort/rhythm Overall: normal rate 09/23/2018 None Full Exam - General 1994 Cardiovascular auscultation of heart Overall: regular rate 09/23/2018 None Full Exam - General 1994 Cardiovascular auscultation of heart Overall: normal heart sounds 09/23/2018 None Full Exam - General 1994 Musculoskeletal head and neck Overall: head atraumatic 09/23/2018 None Full Exam - General 1994 Musculoskeletal head and neck Overall: cervical spine benign 09/23/2018 None Full Exam - General 1994 Neurologic gait Overall: no ataxia, no unsteadiness 09/23/2018 None Full Exam - General 1994 Psychiatric orientation/consciousness Overall: oriented to person, place and time 09/23/2018 None Full Exam - General 1994 Psychiatric mood and affect Overall: normal mood and affect 09/23/2018 None Full Exam - General 1994 Ears/Nose/Throat oral cavity/pharynx/larynx Overall: oral mucosa clear 09/23/2018 None Full Exam - General 1994 Respiratory auscultation Diffuse: expiratory wheezes 09/23/2018 None Full Exam - General 1994 Lymphatic neck nodes Overall: posterior cervical chain benign 09/23/2018 None Full Exam - General 1994 Lymphatic neck nodes Overall: anterior cervical chain benign 09/23/2018 None Full Exam - General 1994 Constitutional general appearance Overall: well developed 05/27/2018 None Full Exam - General 1994 Constitutional general appearance Overall: in no acute distress 05/27/2018 None Full Exam - General 1994 Constitutional general appearance Overall: well nourished 05/27/2018 None Full Exam - General 1994 Eyes pupils and irises Overall: pupils equal, round, reactive to light and accomodation 05/27/2018 None Full Exam - General 1994 Ears/Nose/Throat otoscopic exam Overall: external auditory canals clear 05/27/2018 None Full Exam - General 1994 Ears/Nose/Throat otoscopic exam Overall: tympanic membranes clear 05/27/2018 None Full Exam - General 1994 Respiratory auscultation Overall: breath sounds clear bilaterally 05/27/2018 None Full Exam - General 1994 Respiratory respiratory effort/rhythm Overall: no retractions 05/27/2018 None Full Exam - General 1994 Respiratory respiratory effort/rhythm Overall: normal rate 05/27/2018 None Full Exam - General 1994 Cardiovascular auscultation of heart Overall: regular rate 05/27/2018 None Full Exam - General 1994 Cardiovascular auscultation of heart Overall: normal heart sounds 05/27/2018 None Full Exam - General 1994 Abdomen abdominal exam Overall: no tenderness 05/27/2018 None Full Exam - General 1994 Abdomen abdominal exam Overall: normal bowel sounds 05/27/2018 None Full Exam - General 1994 Musculoskeletal head and neck Overall: head atraumatic 05/27/2018 None Full Exam - General 1994 Musculoskeletal head and neck Overall: cervical spine benign 05/27/2018 None Full Exam - General 1994 Neurologic gait Overall: no ataxia, no unsteadiness 05/27/2018 None Full Exam - General 1994 Psychiatric orientation/consciousness Overall: oriented to person, place and time 05/27/2018 None Full Exam - General 1994 Psychiatric mood and affect Overall: normal mood and affect 05/27/2018 None Full Exam - General 1994 Constitutional general appearance Overall: well developed 01/21/2018 None Full Exam - General 1994 Constitutional general appearance Overall: in no acute distress 01/21/2018 None Full Exam - General 1994 Constitutional general appearance Overall: well nourished 01/21/2018 None Full Exam - General 1994 Eyes pupils and irises Overall: pupils equal, round, reactive to light and accomodation 01/21/2018 None Full Exam - General 1994 Ears/Nose/Throat otoscopic exam Overall: external auditory canals clear 01/21/2018 None Full Exam - General 1994 Ears/Nose/Throat otoscopic exam Overall: tympanic membranes clear 01/21/2018 None Full Exam - General 1994 Respiratory auscultation Overall: breath sounds clear bilaterally 01/21/2018 None Full Exam - General 1994 Respiratory respiratory effort/rhythm Overall: no retractions 01/21/2018 None Full Exam - General 1994 Respiratory respiratory effort/rhythm Overall: normal rate 01/21/2018 None Full Exam - General 1994 Cardiovascular auscultation of heart Overall: regular rate 01/21/2018 None Full Exam - General 1994 Cardiovascular auscultation of heart Overall: normal heart sounds 01/21/2018 None Full Exam - General 1994 Abdomen abdominal exam Overall: no tenderness 01/21/2018 None Full Exam - General 1994 Abdomen abdominal exam Overall: normal bowel sounds 01/21/2018 None Full Exam - General 1994 Musculoskeletal head and neck Overall: head atraumatic 01/21/2018 None Full Exam - General 1994 Musculoskeletal head and neck Overall: cervical spine benign 01/21/2018 None Full Exam - General 1994 Neurologic gait Overall: no ataxia, no unsteadiness 01/21/2018 None Full Exam - General 1994 Psychiatric orientation/consciousness Overall: oriented to person, place and time 01/21/2018 None Full Exam - General 1994 Psychiatric mood and affect Overall: normal mood and affect 01/21/2018 None Full Exam - General 1994 Constitutional general appearance Overall: well developed 12/04/2017 None Full Exam - General 1994 Constitutional general appearance Overall: in no acute distress 12/04/2017 None Full Exam - General 1994 Constitutional general appearance Overall: well nourished 12/04/2017 None Full Exam - General 1994 Eyes pupils and irises Overall: pupils equal, round, reactive to light and accomodation 12/04/2017 None Full Exam - General 1994 Ears/Nose/Throat otoscopic exam Overall: tympanic membranes clear 12/04/2017 None Full Exam - General 1994 Ears/Nose/Throat oral cavity/pharynx/larynx Overall: oral mucosa clear 12/04/2017 None Full Exam - General 1994 Respiratory auscultation Overall: breath sounds clear bilaterally 12/04/2017 None Full Exam - General 1994 Respiratory respiratory effort/rhythm Overall: no retractions 12/04/2017 None Full Exam - General 1994 Respiratory respiratory effort/rhythm Overall: normal rate 12/04/2017 None Full Exam - General 1994 Cardiovascular auscultation of heart Murmur: previously known murmur unchanged 12/04/2017 None Full Exam - General 1994 Neurologic gait Overall: no ataxia, no unsteadiness 12/04/2017 None Full Exam - General 1994 Psychiatric orientation/consciousness Overall: oriented to person, place and time 12/04/2017 None Full Exam - General 1994 Psychiatric mood and affect Overall: normal mood and affect 12/04/2017 None Full Exam - General 1994 Cardiovascular auscultation of heart Rate: tachycardia 12/04/2017 None Full Exam - General 1994 Cardiovascular auscultation of heart Rhythm: irregularly irregular rhythm 12/04/2017 None Full Exam - General 1994 Constitutional general appearance Overall: well developed 11/13/2017 None Full Exam - General 1994 Constitutional general appearance Overall: in no acute distress 11/13/2017 None Full Exam - General 1994 Constitutional general appearance Overall: well nourished 11/13/2017 None Full Exam - General 1994 Eyes pupils and irises Overall: pupils equal, round, reactive to light and accomodation 11/13/2017 None Full Exam - General 1994 Ears/Nose/Throat otoscopic exam Overall: external auditory canals clear 11/13/2017 None Full Exam - General 1994 Ears/Nose/Throat otoscopic exam Overall: tympanic membranes clear 11/13/2017 None Full Exam - General 1994 Ears/Nose/Throat oral cavity/pharynx/larynx Overall: oral mucosa clear 11/13/2017 None Full Exam - General 1994 Respiratory respiratory effort/rhythm Overall: no retractions 11/13/2017 None Full Exam - General 1994 Respiratory respiratory effort/rhythm Overall: normal rate 11/13/2017 None Full Exam - General 1994 Cardiovascular auscultation of heart Overall: regular rate 11/13/2017 None Full Exam - General 1994 Cardiovascular auscultation of heart Overall: normal heart sounds 11/13/2017 None Full Exam - General 1994 Abdomen abdominal exam Overall: no tenderness 11/13/2017 None Full Exam - General 1994 Abdomen abdominal exam Overall: normal bowel sounds 11/13/2017 None Full Exam - General 1994 Lymphatic neck nodes Overall: anterior cervical chain benign 11/13/2017 None Full Exam - General 1994 Lymphatic neck nodes Overall: posterior cervical chain benign 11/13/2017 None Full Exam - General 1994 Musculoskeletal head and neck Overall: head atraumatic 11/13/2017 None Full Exam - General 1994 Musculoskeletal head and neck Overall: cervical spine benign 11/13/2017 None Full Exam - General 1994 Integument inspection of skin Overall: few scattered moles, no gross abnormalities 11/13/2017 None Full Exam - General 1994 Neurologic gait Overall: no ataxia, no unsteadiness 11/13/2017 None Full Exam - General 1994 Psychiatric orientation/consciousness Overall: oriented to person, place and time 11/13/2017 None Full Exam - General 1994 Psychiatric mood and affect Overall: normal mood and affect 11/13/2017 None Full Exam - General 1994 Respiratory auscultation Overall: breath sounds clear bilaterally 11/13/2017 None Full Exam - General 1994 Cardiovascular auscultation of heart Murmur: previously known murmur unchanged 11/13/2017 None Full Exam - General 1994 Constitutional general appearance Overall: well developed 10/30/2017 None Full Exam - General 1994 Constitutional general appearance Overall: in no acute distress 10/30/2017 None Full Exam - General 1994 Constitutional general appearance Overall: well nourished 10/30/2017 None Full Exam - General 1994 Eyes pupils and irises Overall: pupils equal, round, reactive to light and accomodation 10/30/2017 None Full Exam - General 1994 Ears/Nose/Throat otoscopic exam Overall: external auditory canals clear 10/30/2017 None Full Exam - General 1994 Ears/Nose/Throat otoscopic exam Overall: tympanic membranes clear 10/30/2017 None Full Exam - General 1994 Respiratory respiratory effort/rhythm Overall: no retractions 10/30/2017 None Full Exam - General 1994 Respiratory respiratory effort/rhythm Overall: normal rate 10/30/2017 None Full Exam - General 1994 Cardiovascular auscultation of heart Overall: regular rate 10/30/2017 None Full Exam - General 1994 Cardiovascular auscultation of heart Overall: normal heart sounds 10/30/2017 None Full Exam - General 1994 Abdomen abdominal exam Overall: no tenderness 10/30/2017 None Full Exam - General 1994 Abdomen abdominal exam Overall: normal bowel sounds 10/30/2017 None Full Exam - General 1994 Musculoskeletal head and neck Overall: head atraumatic 10/30/2017 None Full Exam - General 1994 Musculoskeletal head and neck Overall: cervical spine benign 10/30/2017 None Full Exam - General 1994 Neurologic gait Overall: no ataxia, no unsteadiness 10/30/2017 None Full Exam - General 1994 Psychiatric orientation/consciousness Overall: oriented to person, place and time 10/30/2017 None Full Exam - General 1994 Psychiatric mood and affect Overall: normal mood and affect 10/30/2017 None Full Exam - General 1994 Respiratory auscultation Diffuse: expiratory wheezes 10/30/2017 None Full Exam - General 1994 Ears/Nose/Throat oral cavity/pharynx/larynx Overall: oral mucosa clear 10/30/2017 None Full Exam - General 1994 Lymphatic neck nodes Overall: anterior cervical chain benign 10/30/2017 None Full Exam - General 1994 Lymphatic neck nodes Overall: posterior cervical chain benign 10/30/2017 None Full Exam - General 1994 Integument inspection of skin Overall: few scattered moles, no gross abnormalities 10/30/2017 None Full Exam - General 1994 Constitutional general appearance Overall: well developed 09/20/2017 None Full Exam - General 1994 Constitutional general appearance Overall: in no acute distress 09/20/2017 None Full Exam - General 1994 Constitutional general appearance Overall: well nourished 09/20/2017 None Full Exam - General 1994 Eyes pupils and irises Overall: pupils equal, round, reactive to light and accomodation 09/20/2017 None Full Exam - General 1994 Ears/Nose/Throat otoscopic exam External auditory canal: minimal cerumen 09/20/2017 None Full Exam - General 1994 Respiratory auscultation Overall: breath sounds clear bilaterally 09/20/2017 None Full Exam - General 1994 Respiratory respiratory effort/rhythm Overall: no retractions 09/20/2017 None Full Exam - General 1994 Respiratory respiratory effort/rhythm Overall: normal rate 09/20/2017 None Full Exam - General 1994 Cardiovascular auscultation of heart Overall: regular rate 09/20/2017 None Full Exam - General 1994 Cardiovascular auscultation of heart Overall: normal heart sounds 09/20/2017 None Full Exam - General 1994 Abdomen abdominal exam Overall: no tenderness 09/20/2017 None Full Exam - General 1994 Abdomen abdominal exam Overall: normal bowel sounds 09/20/2017 None Full Exam - General 1994 Musculoskeletal head and neck Overall: head atraumatic 09/20/2017 None Full Exam - General 1994 Musculoskeletal head and neck Overall: cervical spine benign 09/20/2017 None Full Exam - General 1994 Psychiatric orientation/consciousness Overall: oriented to person, place and time 09/20/2017 None Full Exam - General 1994 Psychiatric mood and affect Overall: normal mood and affect 09/20/2017 None Full Exam - General 1994 Neurologic cranial nerves Overall: crainial nerves 2 - 12 grossly intact 09/20/2017 None Full Exam - General 1994 Integument inspection of skin Overall: no rash, lesions 09/20/2017 None Full Exam - General 1994 Constitutional [...] General 1994 Eyes conjunctiva/eyelids Overall: conjunctiva clear 05/14/2017 None Full Exam - General 1994 Eyes conjunctiva/eyelids Overall: eyelids normal 05/14/2017 None Full Exam [...] distress 08/11/2013 None Full Exam - General 1995 Constitutional general appearance Overall: well nourished 08/11/2013 [...] Procedure Codes Date THER/PROPH/DIAG INJ SC/IM CPT-4: 65515 09/23/2018 TRIAMCINOLONE ACET INJ NOS CPT-4: J3301 09/23/2018 URINALYSIS NONAUTO W/O SCOPE CPT-4: 45176 12/31/2017 OCCULT BLOOD FECES CPT- 4: 61573 11/28/2017 TRIAMCINOLONE ACET INJ NOS CPT-4: J3301 10/30/2017 REMOVAL OF IMPACTED WAX MD CPT-4: G0268 05/29/2017 THER/PROPH/DIAG INJ SC/IM CPT-4: 04668 05/14/2017 KETOROLAC TROMETHAMINE INJ CPT-4: J1885 05/14/2017 ADMIN INFLUENZA VIRUS VAC CPT-4: G0008 04/30/2017 FLU VACC PRSV FREE INC ANTIG CPT-4: 86522 04/30/2017 THER/PROPH/DIAG INJ SC/IM CPT-4: 45606 03/06/2017 TRIAMCINOLONE ACET INJ NOS CPT-4: J3301 03/06/2017 THER/PROPH/DIAG INJ SC/IM CPT-4: 34424 09/04/2016 TRIAMCINOLONE ACET INJ NOS CPT-4: J3301 09/04/2016 THER/PROPH/DIAG INJ SC/IM CPT-4: 20017 11/11/2015 TRIAMCINOLONE ACET INJ NOS CPT-4: J3301 11/11/2015 TRIAMCINOLONE ACET INJ NOS CPT-4: J3301 10/25/2015 THER/PROPH/DIAG INJ SC/IM CPT-4: 74901 10/25/2015 THER/PROPH/DIAG INJ SC/IM CPT-4: 86704 08/17/2014 TRIAMCINOLONE ACET INJ NOS CPT-4: J3301 08/17/2014 TRIAMCINOLONE ACET INJ NOS CPT-4: J3301 04/13/2014 THER/PROPH/DIAG INJ SC/IM CPT-4: 12031 04/13/2014 ROUTINE VENIPUNCTURE CPT- 4: 97244 11/04/2013 ROUTINE VENIPUNCTURE CPT- 4: 05987 05/12/2013 ADMIN INFLUENZA VIRUS VAC CPT-4: G0008 05/12/2013 FLULAVAL VACC, 3 YRS & >, IM CPT-4: Q2036 05/12/2013 TRIAMCINOLONE ACET INJ NOS CPT-4: J3301 10/07/2012 THER/PROPH/DIAG INJ SC/IM CPT-4: 83065 10/07/2012 ROUTINE VENIPUNCTURE CPT- 4: 27763 08/27/2012 ROUTINE VENIPUNCTURE CPT- 4: 44479 07/15/2012 ROUTINE VENIPUNCTURE CPT- 4: 64894 03/26/2012 ADMIN INFLUENZA VIRUS VAC CPT-4: G0008 03/26/2012 FLULAVAL VACC, 3 YRS & >, IM CPT-4: Q2036 03/26/2012 Pneumococcal Polysaccharide Vaccine, 23-Valent, Ad CPT-4: 42226 03/26/2012 ROUTINE VENIPUNCTURE CPT- 4: 46799 01/08/2012 ROUTINE VENIPUNCTURE CPT- 4: 98899 11/06/2011 ROUTINE VENIPUNCTURE CPT- 4: 71899 10/25/2011 ROUTINE VENIPUNCTURE CPT- 4: 75119 10/16/2011 ROUTINE VENIPUNCTURE CPT- 4: 27943 09/25/2011 INJ TRIGGER POINT 1/2 MUSCL CPT-4: 53280 07/31/2011 TRIAMCINOLONE ACET INJ NOS CPT-4: J3301 07/31/2011 PRESCRIP TRANSMIT VIA ERX SY CPT-4: G8553 05/22/2011 ADMIN INFLUENZA VIRUS VAC CPT-4: G0008 05/02/2011 FLULAVAL VACC, 3 YRS & >, IM CPT-4: Q2036 05/02/2011 ROUTINE VENIPUNCTURE CPT- 4: 04664 05/02/2011 Vital Signs Date Vital 09/23/2018 Blood Pressure 1: 132/80 Code: 8480-6 BMI: 30.4 Code: 90534-3 Heart Rate 1: 67 bpm Height: 5'1" SpO2: 97% Weight: 161 lbs 05/27/2018 Blood Pressure 1: 128/76 Code: 8480-6 BMI: 28.9 Code: 21594-4 Heart Rate 1: 74 bpm Height: 5'1" SpO2: 99% Weight: 153 lbs 01/21/2018 Blood Pressure 1: 132/78 Code: 8480-6 BMI: 28.7 Code: 52176-8 Heart Rate 1: 112 bpm Height: 5'1" SpO2: 98% Weight: 152 lbs 12/04/2017 Blood Pressure 1: 140/74 Code: 8480-6 BMI: 27.6 Code: 51360-6 Heart Rate 1: 76 bpm Height: 5'1" SpO2: 97% Weight: 146 lbs 11/13/2017 Blood Pressure 1: 166/78 Code: 8480-6 BMI: 27.4 Code: 70373-4 Heart Rate 1: 78 bpm Height: 5'1" SpO2: 98% Weight: 145 lbs 10/30/2017 Blood Pressure 1: 148/72 Code: 8480-6 BMI: 27.8 Code: 35625-5 Heart Rate 1: 92 bpm Height: 5'1" SpO2: 96% Weight: 147 lbs 09/20/2017 Blood Pressure 1: 146/68 Code: 8480-6 BMI: 28.2 Code: 49562-2 Heart Rate 1: 66 bpm Height: 5'1" SpO2: 99% Weight: 149 lbs 05/29/2017 Blood Pressure 1: 156/82 Code: 8480-6 BMI: 28.7 Code: 51015-7 Heart Rate 1: 71 bpm Height: 5'1" SpO2: 96% Weight: 152 lbs 05/14/2017 Blood Pressure 1: 150/88 Code: 8480-6 BMI: 28.5 Code: 42470-8 Heart Rate 1: 71 bpm Height: 5'1" SpO2: 98% Weight: 151 lbs 03/06/2017 Blood Pressure 1: 148/66 Code: 8480-6 BMI: 28.5 Code: 67131-6 Heart Rate 1: 78 bpm Height: 5'1" SpO2: 98% Weight: 151 lbs 11/01/2016 Blood Pressure 1: 150/84 Code: 8480-6 BMI: 29.1 Code: 89050-6 Heart Rate 1: 71 bpm Height: 5'1" SpO2: 97% Weight: 154 lbs 10/18/2016 Blood Pressure 1: 156/98 Code: 8480-6 Heart Rate 1: 68 bpm Height: 5'1" SpO2: 98% Weight: 10/12/2016 Blood Pressure 1: 142/76 Code: 8480-6 BMI: 30.0 Code: 68977-3 Heart Rate 1: 76 bpm Height: 5'1" SpO2: 95% Weight: 159 lbs 09/04/2016 Blood Pressure 1: 148/84 Code: 8480-6 Blood Pressure 1: 120/70 Code: 8480-6 BMI: 30.0 Code: 42009-0 Heart Rate 1: 72 bpm Height: 5'1" SpO2: 94% Weight: 159 lbs 05/30/2016 Blood Pressure 1: 152/84 Code: 8480-6 BMI: 29.9 Code: 97748-2 Heart Rate 1: 76 bpm Height: 5'1" SpO2: 97% Weight: 158 lbs 8 oz 05/01/2016 Blood Pressure 1: 146/60 Code: 8480-6 BMI: 29.9 Code: 22988-2 Heart Rate 1: 72 bpm Height: 5'1" SpO2: 97% Weight: 158 lbs 02/29/2016 Blood Pressure 1: 152/82 Code: 8480-6 BMI: 30.4 Code: 53399-3 Heart Rate 1: 71 bpm Height: 5'1" SpO2: 96% Weight: 161 lbs 02/03/2016 Blood Pressure 1: 148/88 Code: 8480-6 BMI: 30.6 Code: 39190-1 Heart Rate 1: 72 bpm Height: 5'1" SpO2: 98% Weight: 162 lbs 12/21/2015 Blood Pressure 1: 180/78 Code: 8480-6 BMI: 30.9 Code: 59802-3 Heart Rate 1: 64 bpm Height: 5'1" SpO2: 97% Weight: 163 lbs 8 oz 10/25/2015 Blood Pressure 1: 150/78 Code: 8480-6 BMI: 31.0 Code: 53538-0 Heart Rate 1: 73 bpm Height: 5'1" SpO2: 98% Weight: 164 lbs 10/19/2015 Blood Pressure 1: 122/72 Code: 8480-6 BMI: 31.6 Code: 34709-4 Heart Rate 1: 88 bpm Height: 5'1" SpO2: 98% Weight: 167 lbs 06/22/2015 Blood Pressure 1: 150/82 Code: 8480-6 BMI: 31.4 Code: 26203-6 Heart Rate 1: 86 bpm Height: 5'1" SpO2: 96% Weight: 166 lbs 12/22/2014 Blood Pressure 1: 160/92 Code: 8480-6 BMI: 31.2 Code: 54107-0 Heart Rate 1: 85 bpm Height: 5'1" SpO2: 97% Weight: 165 lbs 08/17/2014 Blood Pressure 1: 138/80 Code: 8480-6 BMI: 31.6 Code: 39723-4 Heart Rate 1: 77 bpm Height: 5'1" SpO2: 97% Weight: 167 lbs 04/13/2014 Blood Pressure 1: 144/88 Code: 8480-6 BMI: 31.6 Code: 95142-0 Heart Rate 1: 90 bpm Height: 5'1" Weight: 167 lbs 12/11/2013 Blood Pressure 1: 168/90 Code: 8480-6 BMI: 32.3 Code: 67050-6 Heart Rate 1: 72 bpm Height: 5'1" Weight: 171 lbs 11/10/2013 Blood Pressure 1: 150/80 Code: 8480-6 BMI: 32.3 Code: 53211-4 Heart Rate 1: 76 bpm Height: 5'1" Weight: 171 lbs 08/11/2013 Blood Pressure 1: 152/80 Code: 8480-6 BMI: 32.5 Code: 47648-7 Heart Rate 1: 92 bpm Height: 5'1" Temperature: 36.7 (C) / 98.0 (F) Weight: 172 lbs 05/12/2013 Blood Pressure 1: 142/102 Code: 8480-6 Blood Pressure 2: 144/98 Code: 8480-6 BMI: 34.2 Code: 10793-8 Heart Rate 1: 80 bpm Height: 5'1" Weight: 181 lbs 01/06/2013 Blood Pressure 1: 138/76 Code: 8480-6 BMI: 34.6 Code: 69174-4 Heart Rate 1: 64 bpm Height: 5'1" Weight: 183 lbs 10/07/2012 Blood Pressure 1: 146/76 Code: 8480-6 BMI: 35.6 Code: 17100-0 Heart Rate 1: 76 bpm Height: 5'1" Respiratory Rate: 20 bpm Weight: 188 lbs 8 oz 09/11/2012 Blood Pressure 1: 158/92 Code: 8480-6 BMI: 35.7 Code: 63341-4 Heart Rate 1: 76 bpm Height: 5'1" Weight: 189 lbs 07/15/2012 Blood Pressure 1: 158/100 Code: 8480-6 BMI: 36.3 Code: 90021-8 Heart Rate 1: 72 bpm Height: 5'1" Respiratory Rate: 20 bpm Weight: 192 lbs 05/02/2012 Blood Pressure 1: 156/80 Code: 8480-6 BMI: 35.9 Code: 65099-8 Heart Rate 1: 72 bpm Height: 5'1" Weight: 190 lbs 03/28/2012 Blood Pressure 1: 133/88 Code: 8480-6 Heart Rate 1: 78 bpm Weight: 189 lbs 11/27/2011 Blood Pressure 1: 178/80 Code: 8480-6 BMI: 36.7 Code: 79746-0 Heart Rate 1: 72 bpm Height: 5'1" Respiratory Rate: 20 bpm Weight: 194 lbs 10/25/2011 Blood Pressure 1: 122/62 Code: 8480-6 BMI: 37.0 Code: 02446-0 Heart Rate 1: 80 bpm Height: 5'1" [...] 2: / Code: 8480-6 BMI: 37.1 Code: 11479-7 Heart Rate 1: 72 bpm Height: 5'1" Respiratory Rate: 16 bpm SpO2: % Temperature: .0 (C) / 32.0 (F) Weight: 196 lbs 8 oz 05/22/2011 Blood Pressure 1: 147/71 Code: 8480-6 BMI: 18.7 Code: 15814-4 Heart Rate 1: 77 bpm Height: 7'1" Weight: 192 lbs 05/05/2011 Blood Pressure 1: 178/88 Code: 8480-6 BMI: 37.4 Code: 34770-3 Heart Rate 1: 80 bpm Height: 5' Respiratory Rate: 16 bpm Weight: 193 lbs Functional Status No Functional Status data History of Present Illness Symptom Name Status Result Effective Date Notes Quality chronic 09/23/2018 None Quality primary hypertension 09/23/2018 None Quality stable 09/23/2018 None Onset and Resolution ongoing 09/23/2018 None Onset of Symptom during adulthood 09/23/2018 None Blood Pressure Values patient checking blood pressure at home - did not bring in readings 09/23/2018 None Pertinent Findings Denies dizziness 09/23/2018 None Pertinent Findings dyspnea 09/23/2018 -her asthma has been bothering her Pertinent Findings Denies edema 09/23/2018 None Onset of Symptom onset as an adult 09/23/2018 None Quality non-insulin dependent 09/23/2018 None Quality chronic 09/23/2018 None Alleviating Factors medication 09/23/2018 None Exacerbating Factors diet 09/23/2018 None Pertinent Findings Denies nausea 09/23/2018 None Quality chronic 09/23/2018 None Onset and Resolution ongoing 09/23/2018 None Alleviating Factors medication 09/23/2018 None Test results Pt checking blood glucose readings, did not bring results to clinic 09/23/2018 None Test results HgbA1c level 7.9 09/23/2018 None Glucose monitoring fasting 09/23/2018 None Exacerbating Factors stress 09/23/2018 None hypertension Quality primary hypertension 05/27/2018 None hypertension Onset and Resolution ongoing 05/27/2018 None hypertension Onset of Symptom during adulthood 05/27/2018 None hypertension Blood Pressure Values patient checking blood pressure at home - did not bring in readings 05/27/2018 None hypertension Pertinent Findings Denies dizziness 05/27/2018 None hypertension Pertinent Findings Denies dyspnea 05/27/2018 None hypertension Pertinent Findings Denies edema 05/27/2018 None arrhythmia Quality irregular beats 05/27/2018 (afib) diabetes mellitus Onset of Symptom onset as an adult 05/27/2018 None diabetes mellitus Quality non-insulin dependent 05/27/2018 None diabetes mellitus Quality chronic 05/27/2018 None diabetes mellitus Alleviating Factors medication 05/27/2018 None diabetes mellitus Exacerbating Factors diet 05/27/2018 None diabetes mellitus Pertinent Findings Denies nausea 05/27/2018 None diabetes mellitus Test results HgbA1c level 8.9 05/27/2018 None diabetes mellitus Test results Pt checking blood glucose readings, did not bring results to clinic 05/27/2018 None diabetes mellitus Glucose monitoring fasting 05/27/2018 -144 this morning hypertension Quality chronic 05/27/2018 None arrhythmia Onset and Resolution resolved 05/27/2018 after ablation hypertension Quality stable 05/27/2018 None hypothyroid Quality chronic 05/27/2018 None hypothyroid Onset and Resolution ongoing 05/27/2018 None hypothyroid Alleviating Factors medication 05/27/2018 None hypertension Quality primary hypertension 01/21/2018 None hypertension Onset of Symptom during adulthood 01/21/2018 None hypertension Alleviating Factors medication 01/21/2018 None diabetes mellitus Quality non-insulin dependent 01/21/2018 None diabetes mellitus Quality chronic 01/21/2018 None diabetes mellitus Onset of Symptom onset as an adult 01/21/2018 None diabetes mellitus Alleviating Factors medication 01/21/2018 None diabetes mellitus Exacerbating Factors diet 01/21/2018 None hypertension Onset and Resolution ongoing 01/21/2018 None hypertension Blood Pressure Values patient checking blood pressure at home - did not bring in readings 01/21/2018 None hypertension Pertinent Findings Denies dizziness 01/21/2018 None hypertension Pertinent Findings Denies dyspnea 01/21/2018 None hypertension Pertinent Findings edema 01/21/2018 in her feet diabetes mellitus Test results Pt checking blood glucose readings, did not bring results to clinic 01/21/2018 None diabetes mellitus Glucose monitoring fasting 01/21/2018 None diabetes mellitus Pertinent Findings Denies nausea 01/21/2018 None arrhythmia Quality irregular beats 01/21/2018 (afib) arrhythmia Onset and Resolution ongoing 01/21/2018 None arrhythmia Alleviating Factors medication 01/21/2018 None dizziness Quality feelings of unsteadiness 12/04/2017 None dizziness Quality lightheadedness 12/04/2017 None dizziness Quality intermittent 12/04/2017 None dizziness Quality acute 12/04/2017 None dizziness Onset and Resolution sudden in onset 12/04/2017 None dizziness Onset of Symptom 1 weeks ago 12/04/2017 None dizziness Limitation on Activities moderately limits activities 12/04/2017 None dizziness Frequency of Episodes increasing 12/04/2017 None dizziness Significant Medical Conditions cardiac disease 12/04/2017 None dizziness Triggers head turning 12/04/2017 None dizziness Triggers position change 12/04/2017 None dizziness Pertinent Findings dyspnea 12/04/2017 None dizziness Quality acute 11/13/2017 None dizziness Quality intermittent 11/13/2017 None dizziness Quality feelings of unsteadiness 11/13/2017 None dizziness Quality lightheadedness 11/13/2017 None dizziness Onset and Resolution sudden in onset 11/13/2017 None dizziness Onset of Symptom 1 weeks ago 11/13/2017 None dizziness Triggers head turning 11/13/2017 None dizziness Triggers position change 11/13/2017 None dizziness Pertinent Findings dyspnea 11/13/2017 None dizziness Limitation on Activities moderately limits activities 11/13/2017 None dizziness Frequency of Episodes increasing 11/13/2017 None dizziness Significant Medical Conditions cardiac disease 11/13/2017 None cough Location in the throat 10/30/2017 None cough Quality constant 10/30/2017 None cough Quality hacking 10/30/2017 None cough Onset and Resolution sudden in onset 10/30/2017 None cough Onset of Symptom 3 days ago 10/30/2017 None cough Limitation on Activities moderately limits activities 10/30/2017 None cough Frequency of Episodes increasing 10/30/2017 None cough Significant Medical Conditions pulmonary disease 10/30/2017 None cough Significant Medications albuterol 10/30/2017 None cough Triggers known allergens 10/30/2017 None cough Alleviating Factors inhaled medications 10/30/2017 None cough Pertinent Findings Denies chills 10/30/2017 None cough Pertinent Findings chest discomfort 10/30/2017 None cough Pertinent Findings Denies fever 10/30/2017 None Hospital Follow Up _ cardiac disease 09/20/2017 (afib with RVR) Hospital Follow Up Quality acute 09/20/2017 None Hospital Follow Up Onset and Resolution resolved 09/20/2017 None gastroesophageal reflux Quality intermittent 09/20/2017 None gastroesophageal reflux Onset and Resolution ongoing 09/20/2017 None gastroesophageal reflux Alleviating Factors proton pump inhibitor 09/20/2017 None gastroesophageal reflux Onset of Symptom during adulthood 09/20/2017 None gastroesophageal reflux Severity moderate 09/20/2017 None gastroesophageal reflux Frequency of Episodes unchanged 09/20/2017 None gastroesophageal reflux Diet solids 09/20/2017 None gastroesophageal reflux Triggers no known associated factors 09/20/2017 None back pain Location in the right [...] blood glucose at home, see scanned readings 03/06/2017 None diabetes mellitus Glucose monitoring daily 03/06/2017 [...] Present Encounters Encounter Performer Location Codes Date ([id number]) 21303 EST. PATIENT, LEVEL IV Diagnosis: Cough[ICD10: R05] Diagnosis: Atrophy of thyroid (acquired)[ICD10: E03.4] Diagnosis: Type 2 diabetes mellitus with hyperglycemia[ICD10: E11.65] Clarice Elaine MD, [facility] CPT-4: 72121 09/23/2018 ([id number]) 01214 EST. PATIENT, LEVEL IV Diagnosis: Type 2 diabetes mellitus with hyperglycemia[ICD10: E11.65] Diagnosis: Atrophy of thyroid (acquired)[ICD10: E03.4] [facility] CPT-4: 81559 05/27/2018 ([id number]) 91594 EST. PATIENT, LEVEL IV Diagnosis: Type 2 diabetes mellitus without complications[ICD10: E11.9] Diagnosis: Paroxysmal atrial fibrillation[ICD10: I48.0] Diagnosis: Essential (primary) hypertension[ICD10: I10] [facility] CPT-4: 83064 01/21/2018 ([id number]) 54221 EST. PATIENT, LEVEL III Diagnosis: Paroxysmal atrial fibrillation[ICD10: I48.0] Diagnosis: Other specified anemias[ICD10: D64.89] Clarice Elaine MD, [facility] CPT-4: 92958 12/04/2017 ([id number]) 16103 EST. PATIENT, LEVEL IV Diagnosis: Benign paroxysmal vertigo, bilateral[ICD10: H81.13] Diagnosis: Essential (primary) hypertension[ICD10: I10] Diagnosis: Other fatigue[ICD10: R53.83] Diagnosis: Other specified anemias[ICD10: D64.89] Diagnosis: Other allergic rhinitis[ICD10: J30.89] Socorro Elaine MD, [facility] CPT-4: 11848 11/13/2017 ([id number]) 61387 EST. PATIENT, LEVEL III Diagnosis: Mild intermittent asthma with (acute) exacerbation[ICD10: J45.21] Diagnosis: Cough[ICD10: R05] Socorro Elaine MD [facility] CPT-4: 56356 10/30/2017 ([id number]) 45496 EST. PATIENT, LEVEL IV Diagnosis: Gastro-esophageal reflux disease without esophagitis[ICD10: K21.9] Diagnosis: Type 2 diabetes mellitus without complications[ICD10: E11.9] Diagnosis: Other specified anemias[ICD10: D64.89] Diagnosis: Paroxysmal atrial fibrillation[ICD10: I48.0] Socorro Elaine MD, [facility] CPT-4: 58722 09/20/2017 ([id number]) 68766 EST. PATIENT, LEVEL III Diagnosis: Essential (primary) hypertension[ICD10: I10] Clarice Elaine MD, [facility] CPT-4: 05769 05/29/2017 ([id number]) 15758 EST. PATIENT, LEVEL III Diagnosis: Acute bronchitis due to other specified organisms[ICD10: J20.8] Diagnosis: Cough[ICD10: R05] Diagnosis: Other chest pain[ICD10: R07.89] Clarice Elaine MD, [facility] CPT-4: 58862 05/14/2017 ([id number]) 00104 EST. PATIENT, LEVEL IV Diagnosis: Type 2 diabetes mellitus with hyperglycemia[ICD10: E11.65] Diagnosis: Essential (primary) hypertension[ICD10: I10] Diagnosis: Mild intermittent asthma with (acute) exacerbation[ICD10: J45.21] Clarice Elaine MD [facility] CPT-4: 81110 03/06/2017 ([id number]) 13250 EST. PATIENT, LEVEL III Diagnosis: Essential (primary) hypertension[ICD10: I10] Diagnosis: Gastro-esophageal reflux disease with esophagitis[ICD10: K21.0] Clarice Elaine MD 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 CPT-4: 38474K 10/18/2016 [id number] EST. PATIENT, LEVEL III Diagnosis: Mild intermittent asthma with (acute) exacerbation[ICD10: J45.21] Diagnosis: Gastro-esophageal reflux disease without esophagitis[ICD10: K21.9] Jayne Elaine MD [facility] CPT-4: 66805 10/12/2016 ([id number]) 79987 EST. PATIENT, LEVEL IV Diagnosis: Type 2 diabetes mellitus with hyperglycemia[ICD10: E11.65] Diagnosis: Essential (primary) hypertension[ICD10: I10] Diagnosis: Mild intermittent asthma with (acute) exacerbation[ICD10: J45.21] Clarice Elaine MD [facility] CPT-4: 36121 09/04/2016 09252 EST. PATIENT, LEVEL III Diagnosis: Pain in left ankle and joints of left foot[ICD10: M25.572] Diagnosis: Localized edema[ICD10: R60.0] Jayne Elaine MD [facility] CPT-4: 27585 05/30/2016 ([id number]) 88070 EST. PATIENT, LEVEL III Diagnosis: Type 2 diabetes mellitus with hyperglycemia[ICD10: E11.65] Clarice Elaine MD [facility] CPT-4: 58811 05/01/2016 ([id number]) 28971 EST. PATIENT, LEVEL IV Diagnosis: Type 2 diabetes mellitus without complications[ICD10: E11.9] Diagnosis: Moderate persistent asthma, uncomplicated[ICD10: J45.40] Diagnosis: Paroxysmal atrial fibrillation[ICD10: I48.0] Clarice Elaine MD, [facility] CPT-4: 55047 02/29/2016 ([id number]) 64844 EST. PATIENT, LEVEL IV Diagnosis: Paroxysmal atrial fibrillation[ICD10: I48.0] Diagnosis: Hypothyroidism, unspecified[ICD10: E03.9] Diagnosis: Type 2 diabetes mellitus without complications[ICD10: E11.9] Diagnosis: Essential (primary) hypertension[ICD10: I10] Diagnosis: Acute maxillary sinusitis, unspecified[ICD10: J01.00] Diagnosis: Moderate persistent asthma, uncomplicated[ICD10: J45.40] Clarice Elaine MD, [facility] CPT-4: 63977 02/03/2016 ([id number] 67481 EST. PATIENT, LEVEL IV Diagnosis: Type 2 diabetes mellitus without complications[ICD10: E11.9] Diagnosis: Hypothyroidism, unspecified[ICD10: E03.9] Diagnosis: Moderate persistent asthma, uncomplicated[ICD10: J45.40] Diagnosis: Essential (primary) hypertension[ICD10: I10] Clarice Elaine MD, [facility] CPT-4: 54764 12/21/2015 ([id number]) 24085 EST. 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 PATIENT, LEVEL IV Diagnosis: Type 2 diabetes mellitus without complications[ICD10: E11.9] Diagnosis: Essential (primary) hypertension[ICD10: I10] Diagnosis: Hypothyroidism, unspecified[ICD10: E03.9] Clarice Elaine MD [facility] CPT-4: 54406 06/22/2015 ([id number]) 29356 EST. PATIENT, LEVEL IV Diagnosis: ESSENTIAL HYPERTENSION[ICD9: 401.9] Diagnosis: DIABETES TYPE II[ICD9: 250.00] Clarice Elaine MD [facility] CPT-4: 02534 12/22/2014 ([id number]) 51685 EST. PATIENT, LEVEL IV Diagnosis: ACUTE BRONCHITIS[ICD9: 466.0] Diagnosis: Acute asthma exacerbation[ICD9: 493.92] Diagnosis: ESSENTIAL HYPERTENSION[ICD9: 401.9] Diagnosis: DIABETES TYPE II[ICD9: 250.00] Clarice Elaine MD [facility] CPT-4: 21712 08/17/2014 ([id number]) 83279 EST. PATIENT, LEVEL IV Diagnosis: DIABETES TYPE II[ICD9: 250.00] Diagnosis: ESSENTIAL HYPERTENSION[ICD9: 401.9] Diagnosis: Acute asthma exacerbation[ICD9: 493.92] Clarice Elaine MD [facility] CPT-4: 99016 04/13/2014 ([id number]) 16747 EST. PATIENT, LEVEL IV Diagnosis: DIABETES TYPE II[ICD9: 250.00] Diagnosis: ESSENTIAL HYPERTENSION[ICD9: 401.9] Diagnosis: HYPOTHYROIDISM[ICD9: 244.9] Clarice Elaine MD [facility] CPT-4: 40843 12/11/2013 ([id number]) 64832 EST. PATIENT, LEVEL IV Diagnosis: DM W/O COMPLICATION TYPE II, UNCONTROLLED[ICD9: 250.02] Diagnosis: ESSENTIAL HYPERTENSION[ICD9: 401.9] Clarice Elaine MD [facility] CPT- 4: 18976 11/10/2013 [id number]) 24032 EST. PATIENT, LEVEL IV Diagnosis: DM W/O COMPLICATION TYPE II, UNCONTROLLED[SNOMED: 52476822] Diagnosis: ESSENTIAL HYPERTENSION[SNOMED: 77399518] Diagnosis: ACUTE BRONCHITIS[ICD9: 466.0] Clarice Elaine MD [facility] CPT-4: 56245 08/11/2013 ([id number]) 05901 EST. PATIENT, LEVEL IV Diagnosis: DM W/O COMPLICATION TYPE II, UNCONTROLLED[SNOMED: 34871363] Diagnosis: ATRIAL FIBRILLATION[ICD9: 427.31] Diagnosis: ESSENTIAL HYPERTENSION[SNOMED: 86682354] Clarice Elaine MD, [facility] CPT-4: 90899 05/12/2013 ([id number]) 17107 EST. PATIENT, LEVEL IV Diagnosis: DM W/O COMPLICATION TYPE II, UNCONTROLLED[SNOMED: 93040037] Diagnosis: ESSENTIAL HYPERTENSION[SNOMED: 19018414] Clarice Elaine MD, [facility] CPT-4: 86756 01/06/2013 ([id number]) 28658 EST. PATIENT, LEVEL IV Diagnosis: DIABETES TYPE II[SNOMED: 933220609] Diagnosis: ESSENTIAL HYPERTENSION[SNOMED: 00571959] Diagnosis: Acute asthma exacerbation[ICD9: 493.92] Diagnosis: Fatigue[ICD9: 780.79] Clarice Elaine MD, [facility] CPT-4: 69258 10/07/2012 ([id number]) 90621 EST. PATIENT, LEVEL IV Diagnosis: DM W/O COMPLICATION TYPE II, UNCONTROLLED[SNOMED: 92712231] Diagnosis: Lump of breast, right[ICD9: 611.72] Diagnosis: Lump on neck[ICD9: 784.2] Clarice Elaine MD, [facility] CPT-4: 33057 09/11/2012 ([id number]) 46855 EST. PATIENT, LEVEL IV Diagnosis: ESSENTIAL HYPERTENSION[SNOMED: 97254111] Diagnosis: Atrial fibrillation[ICD9: 427.31] Diagnosis: Fatigue[ICD9: 780.79] Diagnosis: Encounter for monitoring digoxin therapy[ICD9: V58.83] Clarice Elaine MD, [facility] CPT-4: 49828 07/15/2012 ([id number]) 53448 EST. PATIENT, LEVEL IV Diagnosis: DIABETES TYPE II[SNOMED: 709385060] Diagnosis: ESSENTIAL HYPERTENSION[SNOMED: 86147113] Clarice Elaine MD, [facility] CPT-4: 58555 05/02/2012 ([id number]) 91203 EST. PATIENT, LEVEL IV Diagnosis: DM W/O COMPLICATION TYPE II, UNCONTROLLED[SNOMED: 23509578] Diagnosis: ESSENTIAL HYPERTENSION[SNOMED: 74066955] Diagnosis: HYPERLIPIDEMIA[ICD9: 272.4] Clarice Elaine MD [facility] CPT-4: 22682 03/28/2012 ([id number]) 78127 EST. PATIENT, LEVEL IV Diagnosis: DM W/O COMPLICATION TYPE II, UNCONTROLLED[SNOMED: 78699302] Diagnosis: ESSENTIAL HYPERTENSION[SNOMED: 98549017] Clarice Elaine MD [facility] CPT-4: 24641 11/27/2011 ([id number]) 01178 EST. PATIENT, LEVEL III Diagnosis: ESSENTIAL HYPERTENSION[SNOMED: 36808244] Diagnosis: ANEMIA[ICD9: 285.9] Diagnosis: Gastritis[ICD9: 535.50] Clarice Elaine MD [facility] CPT-4: 01324 10/25/2011 ([id number]) 51265 EST. PATIENT, LEVEL III Diagnosis: Anemia associated with acute blood loss[ICD9: 285.1] Diagnosis: Gastritis, acute with hemorrhage[ICD9: 535.01] Clarice Elaine MD [facility] CPT-4: 92885 10/11/2011 ([id number]) 51928 EST. PATIENT, LEVEL IV Diagnosis: Hematochezia[ICD9: 578.1] Diagnosis: ENCNTR LONG-RX USE NEC[ICD9: V58.69] Diagnosis: Abdominal pain[ICD9: 789.00] Clarice Elaine MD [facility] CPT-4: 64515 10/04/2011 ([id number]) 50940 EST. PATIENT, LEVEL IV Diagnosis: DIABETES TYPE II[SNOMED: 439104569] Diagnosis: ESSENTIAL HYPERTENSION[SNOMED: 54531466] Diagnosis: Coronary artery disease[ICD9: 414.00] Clarice Elaine MD [facility] CPT-4: 13444 09/25/2011 ([id number]) 97584 EST. PATIENT, LEVEL IV Diagnosis: Muscle spasm[ICD9: 728.85] Diagnosis: Arthralgia[ICD9: 719.40] Diagnosis: ESSENTIAL HYPERTENSION[SNOMED: 98347039] Clarice Elaine MD [facility] CPT-4: 28196 07/31/2011 07078 EST. PATIENT, LEVEL III Diagnosis: ACUTE SINUSITIS[ICD9: 461.9] Diagnosis: Cervicalgia[ICD9: 723.1] [facility] CPT-4: 70167 05/22/2011 72368 EST. PATIENT, LEVEL IV Diagnosis: HYPERLIPIDEMIA[ICD9: 272.4] Diagnosis: HYPOTHYROIDISM[ICD9: 244.9] Diagnosis: DM W/O COMPLICATION TYPE II, UNCONTROLLED[SNOMED: 13697297] [facility] CPT-4: 57231 05/05/2011 Plan of Care Planned Activity Notes Codes Status Date Visit Plan: Contracture/pain in right hand - 4th finger - referral to Dr. Mauricio for right hand 4th finger - start on Dupuytren's contracture Not able to go on October 20, , . Asthma exacerbation - pt given kenalog injection today - will refill dulera as she felt like this worked better for her than symbicort. Hypothyroidism - pt with chronic hypothyroidism, continue with current medication, will monitor pt to signs or symptoms of lack of adequate supplementation. Pt is to continue with current dose of medication unless directed otherwise. Check labs at regular intervals q 3 months or q 6 months based on previous levels of control. Diabetes Mellitus - improved control- per recent FSBS reports. I have recommended [...] readings are starting to become less controlled. 09/23/2018 Patient Education: Patient Medication Summary Completed 09/23/2018 Patient Education: Diabetes Completed 09/23/2018 Care Plan: Referral Order SNOMED-CT : 686297382 Pending 09/23/2018 Visit Plan: Diabetes Mellitus - not optimally controlled - per recent FSBS reports. I [...] readings are starting to become less controlled. Last hgba1c was up from 6.4 to 8.9 I recommend that she needs to be placed on the IPRO continuous glucose monitor. Hypothyroidism - pt with chronic hypothyroidism, Excessively supplemented - dose decreased when we got her labs back - down from 88 to 75mcg daily - she is to continue with this new dose of medication, will monitor pt to signs or symptoms of lack of adequate supplementation. Pt is to continue with current dose of medication unless directed otherwise. Check labs at regular intervals q 3 months or q 6 months based on previous levels of control. 05/27/2018 [id number] ([facility] min) Moderate 05/27/2018 Patient Education: Patient Medication Summary Completed 05/27/2018 Patient Education: Diabetes Completed 05/27/2018 Visit Plan: Diabetes Mellitus - controlled - [...] change in blood pressure readings at home. Atrial Fibrillation - pt on chronic anticoagulation and is currently rate controlled. The pt is to have labs done as appropriate to monitor medication levels and is to report if they start to feel as if their heart rate is becoming uncontrolled. 01/21/2018 App[facility]ment[id number] (15 min) Moderate 01/21/2018 Patient Education: Patient Medication Summary Completed 01/21/2018 Appointment: Lab Draw 12/31/2017 Patient Education: Patient Medication Summary Completed 12/31/2017 Visit Plan: Atrial Fibrillation - pt on chronic anticoagulation and is currently rate controlled. The pt is to have labs done as appropriate to monitor medication levels and is to report if they start to feel as if their heart rate is becoming uncontrolled. Iron deficiency anemia - recommended that she needs to have labs done today - report on the labs show that she needs to have venofer IV. 12/04/2017 [facility]ment: [phone] ([facility] min) Moderate 12/04/2017 Patient Education: Patient Medication Summary Completed 12/04/2017 Care Plan: Iron Pending 12/04/2017 Care Plan: Iron And Tibc Pending 12/04/2017 Appointment: Lab Draw 11/28/2017 Patient Education: Patient Medication Summary Completed 11/28/2017 Patient Education: Patient Medication Summary Completed 11/22/2017 Care Plan: Iron Pending 11/22/2017 Visit Plan: BPPV - Benign Paroxysmal Positional Vertigo - discussed diagnosis with the patient, offered the pt the appropriate additional information in hand-out. Pt instructed in home exercises to help alleviate and prevent future recurrent episodes of vertigo. Pt informed that if symptoms worsen, call the office for further instructions/medication interventions. HTN- elevated today-monitor at home Nxkmtk-oxsqtnb-ekpih labs Allergies-add flonase nasal spray 11/13/2017 Visit Plan: BPPV - Benign Paroxysmal Positional Vertigo - discussed diagnosis with the patient, offered the pt the appropriate additional information in hand-out. Pt instructed in home exercises to help alleviate and prevent future recurrent episodes of vertigo. Pt informed that if symptoms worsen, call the office for further instructions/medication interventions. HTN- elevated today-monitor at home Apazdm-ykvjylk-bdodc labs Allergies-add flonase nasal spray 11/13/2017 Appointment: [phone] [phone] (30 min) Complex 11/13/2017 Patient Education: Patient Medication Summary Completed 11/13/2017 Patient Education: .Amazing charts Paroxysmal positional vertigo Completed 11/13/2017 Visit Plan: Asthma Exacerbation - Asthma is [...] patient is stable, monitor for acute changes. 10/30/2017 Appointment: Socorro Salmeron WPtel: [phone] [phone] (30 min) Complex 10/30/2017 Patient Education: Patient Medication Summary Completed 10/30/2017 Appointment: Clarice Elaine WPtel: [phone] [id number] (15 min) Moderate 09/25/2017 Visit Plan: GERD-continue protonix and carafate-low spice diet -call if symptoms uncontrolled Melana-history of anemia-check Hgb-stay off aspirin per Dr Aguilar Afcarlita-now in NSR -continue xarelto-follow up with Dr Aguilar as scheduled DM-check Hgb A1C 09/20/2017 Visit Plan: GERD-continue protonix and carafate-low spice diet -call if symptoms uncontrolled Melana-history of anemia-check Hgb-stay off aspirin per Dr Lauren Mcdermott-now in NSR -continue xarelto-follow up with Dr Aguilar as scheduled DM-check Hgb A1C 09/20/2017 Appointment: Socorro Salmeron WPtel: [facility] [id number] (30 min) Complex 09/20/2017 Patient Education: Patient Medication Summary Completed 09/20/2017 Appointment: Clarice Elaine WPtel: [facility] (15 min) Moderate 06/26/2017 Visit Plan: Hypertension - well controlled - continue with current medications, continue with no added salt diet. Pt has been encouraged to exercise daily. The pt has been advised to call the office if there are any acute concerns about change in blood pressure readings at home. Cerumen Impaction - The impacted cerumen was removed with the use of the ear currette and Water Pic. The patient tolerated the procedure without incident and had improvement in hearing. The wax was removed by the practitioner due to the wax being more complicated to remove, and staff was needed to assist the removal of the wax by holding the ear, and keeping patient stabilized during the removal process. 05/29/2017 Appointment: Clarice Elaine WPtel: [address] [facility] (15 min) Moderate 05/29/2017 Patient Education: Patient Medication Summary Completed 05/29/2017 Patient Education: Hypertension Completed 05/29/2017 Visit Plan: Bronchitis - acute case of bronchitis identified. Pt has been given antibiotics, breathing treatments as appropriate, and pt has been instructed to call if symptoms are not improved, or if symptoms acutely worsen. Chest pain - chest wall - toradol shot hospira [id number] november 2018 05/14/2017 Visit Plan: Bronchitis - acute case of bronchitis identified. Pt has been given antibiotics, breathing treatments as appropriate, and pt has been instructed to call if symptoms are not improved, or if symptoms acutely worsen. Chest pain - chest wall - toradol shot hospira [id number] november 2018 05/14/2017 Appointment: Clarice Elaine WPtel: [address] [place], [place] [address] (15 min) Moderate 05/14/2017 Patient Education: Patient Medication Summary Completed 05/14/2017 Appointment: Injection 04/30/2017 Patient Education: Patient Medication Summary Completed 04/30/2017 Visit Plan: Diabetes Mellitus - Uncontrolled - [...] to allow for greater blood glucose control. Start Metformin 500mg at breakfast, lunch, 2 at supper. Hypertension - well controlled - continue with current medications, continue with no added salt diet. Pt has been encouraged to exercise daily. The pt has been advised to call the office if there are any acute concerns about change in blood pressure readings at home. Asthma Exacerbation - Asthma is a chronic [...] strategy, symptom control, and plans for acute exacerbation. No changes today to the current treatment plan as the patient is stable, monitor for acute changes. Steroid shot in clinic today. 03/06/2017 Appointment: Clarice Elaine WPtel: [facility] (15 min) Moderate 03/06/2017 Patient Education: Patient Medication Summary Completed 03/06/2017 Patient Education: Hypertension Completed 03/06/2017 Appointment: Clarice Elaine WPtel: [address] [place], [place] [phone] (15 min) Moderate 12/05/2016 Visit Plan: Hypertension [...] current treatment. 11/01/2016 Appointment: Clarice Elaine WPtel: [facility] (15 min) Moderate 11/01/2016 Patient Education: Patient [...] ACUTE ILLNESS. 10/18/2016 Appointment: Clarice Elaine WPtel: [facility] (15 min) Moderate 10/18/2016 Patient Education: Patient Medication Summary Completed 10/18/2016 Visit Plan: Esophageal Reflux - the patient has been counseled against excessive intake of caffeine, spicy foods, peppermint, and cinnamon - all of which can exacerbate esophageal reflux. The patient is to take med ications as prescribed and call the office if the symptoms are not improving. Asthma - chronic problem for this patient. We have reviewed chronic treatment strategy, symptom control, and plans for acute exacerbations. No changes today to the current treatment plan as the patient is stable, monitor for acute changes 10/12/2016 Appointment: Jayne Ragland WPtel: [facility] [place] (30 min) Complex 10/12/2016 Patient Education: Patient [...] home. 09/04/2016 Appointment: Clarice Elaine WPtel: [facility] (15 min) Moderate 09/04/2016 Patient Education: Patient Medication Summary Completed 09/04/2016 Patient Education: Obesity Completed 09/04/2016 Patient Education: Hypertension Completed 09/04/2016 Appointment: Jayne Ragland WPtel: [facility] [place] [facility] - Annual Wellness Visit 06/08/2016 Visit [...] control. 05/01/2016 Appointment: Clarice Elaine WPtel: [address] [facility] (15 min) Moderate 05/01/2016 Patient Education: Patient [...] acute changes 02/29/2016 Appointment: Clarice Elaine WPtel: [facility] Surgical Procedure 02/29/2016 Patient Education: Patient Medication [...] pressure readings. 12/21/2015 [facility]ment: [facility] (15 min) Moderate 12/21/2015 Patient Education: Patient [...] monitor for acute changes. kenalog shot today 10/25/2015 Appointment: [facility] (15 min) Moderate 10/25/2015 Patient Education: Patient [...] ILLNESS. 10/19/2015 Appointment: Socorro Salmeron [facility]el[facility] (30 min) Complex 10/19/2015 Patient Education: Patient [...] at home. 08/17/2014 Appointment: Clarice Elaine WPtel: [address] [place], [place] [address] Follow up 08/17/2014 Patient Education: Patient Medication [...] albuterol. 04/13/2014 Appointment: [facility] Follow [facility] 04/13/2014 Patient Education: Patient Medication [...] control. 12/11/2013 Appointment: [facility] Follow [facility] 12/11/2013 Patient Education: Patient Medication [...] concerns. 11/10/2013 Appointment: [facility] [place] Follow up 11/10/2013 Patient Education: Patient Medication Summary Completed 11/10/2013 Patient Education: Hypertension Completed 11/10/2013 Appointment: Clar[facility] [place] [facility] 11/04/2013 Patient Education: Patient [...] patient's pharmacy. 08/11/2013 Appointment: Clar[facility]el[facility] [place] Follow up 08/11/2013 Patient Education: Patient [...] salt in the diet. Flu shot today 05/12/2013 Appointment: Clar[facility]el[facility] Follow [facility] 05/12/2013 Patient Education: Patient Medication [...] control. 01/06/2013 Appointment: Clar[facility]el[facility] [place] Follow up 01/06/2013 Patient Education: Patient [...] shot today. 10/07/2012 Appointment: Clar[facility] Elaine [facility]el[facility] Follow [facility] 10/07/2012 Patient Education: Patient Medication [...] and ultrasound 09/11/2012 Appointment: Clar[facility]el[facility] Follow [facility] 09/11/2012 Patient Education: Patient Medication [...] digoxin level. 07/15/2012 Appointment: Clar[facility]el[facility] Follow [facility] 07/15/2012 Patient Education: Patient Medication [...] Plavix. 05/02/2012 Appointment: Clar[facility] Elaine [facility]Ptel[facility] [place] Follow up 05/02/2012 Patient Education: Patient [...] ASPIRIN COMPELTELY. 03/28/2012 Appointment: Clarice Elaine [facility]Ptel[facility] [place] Follow up 03/28/2012 Patient Education: Patient Medication [...] at home. 11/27/2011 Appointment: Clarice Elaine WPtel: [facility] [place] [phone] Follow up 11/27/2011 Patient Education: Patient Medication Summary Completed 11/27/2011 Patient Education: High Blood Pressure: Essential Hypertension Completed 11/27/2011 Patient Education: Patient Medication Summary Completed 11/06/2011 Appointment: Clarice Elaine WPtel: [facility] Other 11/03/2011 Appointment: Clarice Elaine WPtel: [address] [place], [place] [phone] Other 11/02/2011 Appointment: Clarice Elaine WPtel: [address] [place], [place] [phone] Lab Draw 10/31/2011 Visit Plan: Hypertension - [...] times daily. 10/25/2011 Appointment: Clarice Elaine WPtel: [facility] Follow up 10/25/2011 Patient Education: Patient Medication Summary Completed 10/25/2011 Patient Education: High Blood Pressure: Essential Hypertension Completed 10/25/2011 Appointment: Clarice Elaine WPtel: [address] [place], [place] [phone] Lab Draw 10/16/2011 Patient Education: Patient Medication [...] to 11.4 10/11/2011 Appointment: Clarice Elaine WPtel: [address] [place], [place] [phone] Other 10/11/2011 Patient Education: Patient Medication Summary Completed 10/11/2011 Appointment: Clarice Elaine WPtel: [address] [place], [place] [phone] Other 10/10/2011 Visit Plan: Abdominal pain and [...] remained stable. 10/04/2011 Appointment: Clarice Elaine WPtel: [facility] Follow up 10/04/2011 Patient Education: Patient Medication [...] not improve. 09/25/2011 Appointment: Clarice Elaine WPtel: [address] [place] [address] Other 09/25/2011 Patient Education: Patient Medication Summary [...] not improve. 07/31/2011 Appointment: Clarice Elaine WPtel: [address] [place], [place] [id number] Other 07/31/2011 Patient Education: Patient Medication Summary Completed 07/31/2011 Patient Education: High Blood Pressure: Essential Hypertension Completed 07/31/2011 Visit Plan: Sinusitis - Pt has acute infection - pain in face, maxillary region, Pt informed to use decongestant, RX given to patient, sinus rinses also recommended. Call if symptoms do not show improvement. Neck pain- discussed natural and expected course of this diagnosis and instructed patient to alert me if symptoms do not follow expected course, or if any worse. Sampels of volteran gel provided and instructed patient on use. 05/22/2011 Appointment: Socorro Salmeron WPtel: [facility] Other 05/22/2011 Patient Education: Patient Medication Summary [...] greater blood glucose control. metformin dose increased. 05/05/2011 Appointment: Clarice Elaine WPtel: [facility] Other 05/05/2011 Patient Education: Patient Medication Summary Completed 05/05/2011 Patient Education: High Cholesterol Completed 05/05/2011 Appointment: Clarice Elaine WPtel: [facility] [place] Other 05/04/2011 Appointment: Clarice Elaine WPtel: [facility] [place] Lab Draw 05/02/2011 Patient Education: Patient Medication Summary Completed 05/02/2011 Patient Education: High Blood Pressure: Essential Hypertension Completed 05/02/2011 Referral: [facility] Referral Appointment Requested Instructions Comment . Edema - pt has [...] patient is stable, monitor for acute changes CHECK LABS VERTIGO EXERCISES FLONASE NASAL SPRAY . BPPV - Benign Paroxysmal Positional Vertigo - discussed diagnosis with the patient, offered the pt the appropriate additional information in hand-out. Pt instructed in home exercises to help alleviate and prevent future recurrent episodes of vertigo. Pt informed that if symptoms worsen, call the office for further instructions/medication interventions. HTN-elevated today-monitor at home Tfwcdx-diukohk-nqltu labs Allergies-add flonase nasal spray CHECK LABS VERTIGO EXERCISES FLONASE NASAL SPRAY . BPPV - Benign Paroxysmal Positional Vertigo - discussed diagnosis with the patient, offered the pt the appropriate additional information in hand-out. Pt instructed in home exercises to help alleviate and prevent future recurrent episodes of vertigo. Pt informed that if symptoms worsen, call the office for further instructions/medication interventions. HTN-elevated today-monitor at home Lffuxi-yepzauk-lpvcg labs Allergies-add flonase nasal spray . Hypertension - well controlled - continue with current medications, continue with no added salt diet. Pt has been encouraged to exercise daily. The pt has been advised to call the office if there are any acute concerns about change in blood pressure readings at home. Esophagitis - RX for pantoprazole and carafate given to patient - continue with current treatment. . Diabetes Mellitus - Uncontrolled - per [...] salt in the diet. Flu shot today probiotic increase to three times daily while [...] have pt get mammogram and ultrasound . Diabetes Mellitus - Uncontrolled - per [...] to allow for greater blood glucose control. Start Metformin 500mg at breakfast, lunch, 2 at supper. Hypertension - well controlled - continue with current medications, continue with no added salt diet. Pt has been encouraged to exercise daily. The pt has been advised to call the office if there are any acute concerns about change in blood pressure readings at home. Asthma Exacerbation - Asthma is a chronic [...] strategy, symptom control, and plans for acute exacerbation. No changes today to the current treatment plan as the patient is stable, monitor for acute changes. Steroid shot in clinic today. . Diabetes Mellitus - not optimally controlled - per recent FSBS reports. I [...] readings are starting to become less controlled. Last hgba1c was up from 6.4 to 8.9 I recommend that she needs to be placed on the IPRO continuous glucose monitor. Hypothyroidism - pt with chronic hypothyroidism, Excessively supplemented - dose decreased when we got her labs back - down from 88 to 75mcg daily - she is to continue with this new dose of medication, will monitor pt to signs or symptoms of lack of adequate supplementation. Pt is to continue with current dose of medication unless directed otherwise. Check labs at regular intervals q 3 months or q 6 months based on previous levels of control. . DR. ELAINE IN TO SEE PT [...] - look at the organic section at [facility] or in [employer] at the peanut butter section . Diabetes [...] provided and instructed patient on use. . GERD-continue protonix and carafate-low spice diet -call if symptoms uncontrolled Melana-history of anemia-check Hgb-stay off aspirin per Dr Lauren Mcdermott-now in NSR -continue xarelto-follow up with Dr Aguilar as scheduled DM-check Hgb A1C . GERD-continue protonix and carafate-low spice diet -call if symptoms uncontrolled Melana-history of anemia-check Hgb-stay off aspirin per Dr Lauren Mcdermott-now in NSR -continue xarelto-follow up with Dr Aguilar as scheduled DM-check Hgb A1C . Diabetes Mellitus - controlled - per [...] is to call for acute concerns. . Hypertension - well controlled - continue with current medications, continue with no added salt diet. Pt has been encouraged to exercise daily. The pt has been advised to call the office if there are any acute concerns about change in blood pressure readings at home. Cerumen Impaction - The impacted cerumen was removed with the use of the ear currette and Water Pic. The patient tolerated the procedure without incident and had improvement in hearing. The wax was removed by the practitioner due to the wax being more complicated to remove, and staff was needed to assist the removal of the wax by holding the ear, and keeping patient stabilized during the removal process. . Atrial Fibrillation - pt on chronic anticoagulation and is currently rate controlled. The pt is to have labs done as appropriate to monitor medication levels and is to report if they start to feel as if their heart rate is becoming uncontrolled. Iron deficiency anemia - recommended that she needs to have labs done today - report on the labs show that she needs to have venofer IV. . Bronchitis - acute case of bronchitis identified. Pt has been given antibiotics, breathing treatments as appropriate, and pt has been instructed to call if symptoms are not improved, or if symptoms acutely worsen. Chest pain - chest wall - toradol shot hospira [id number] november 2018 . Bronchitis - acute case of bronchitis identified. Pt has been given antibiotics, breathing treatments as appropriate, and pt has been instructed to call if symptoms are not improved, or if symptoms acutely worsen. Chest pain - chest wall - toradol shot hospira [id number] november 2018 . Asthma Exacerbation - Asthma is a [...] for acute changes. kenalog shot today . Contracture/pain in right hand - 4th finger - referral to Dr. Mauricio for right hand 4th finger - start on Dupuytren's contracture Not able to go on October 20, , . Asthma exacerbation - pt given kenalog injection today - will refill dulera as she felt like this worked better for her than symbicort. Hypothyroidism - pt with chronic hypothyroidism, continue with current medication, will monitor pt to signs or symptoms of lack of adequate supplementation. Pt is to continue with current dose of medication unless directed otherwise. Check labs at regular intervals q 3 months or q 6 months based on previous levels of control. Diabetes Mellitus - improved control- per recent FSBS reports. I have recommended [...] in blood pressure readings at home. . Hypertension - well controlled - continue [...] are starting to become less controlled. . Abdominal pain and Hematochezia - I [...] - check labs - CBC, digoxin level. restart SYMBICORT 2 puffs twice daily kenalog injection today in the office augmentin twice daily . Asthma Exacerbation - Asthma is a [...] patient is stable, monitor for acute changes. . Hypertension - well controlled - continue [...] to call if symptoms do not improve. vital sox - calf size of 15 inches. . Diabetes Mellitus - controlled - per [...] change in blood pressure readings at home. Atrial Fibrillation - pt on chronic anticoagulation and is currently rate controlled. The pt is to have labs done as appropriate to monitor medication levels and is to report if they start to feel as if their heart rate is becoming uncontrolled. . Hyperlipidemia - pt has been counseled [...]
--- OUTSIDE RECORDS SUMMARY | 2018-12-28 04:23 | XMS REPORT | CCD ---
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 Unknown Has never used illegal drugs 05/05/2011 Allergies, Adverse Reactions, Alerts Substance Reaction Codes Entered Date Inactivated Date Status noroxin RxNorm: 7517 05/05/2011 No Inactive Date Active trovan RxNorm: 125325 05/05/2011 No Inactive Date Active * NO KNOWN FOOD ALLERGIES Unknown 05/05/2011 No Inactive Date Active PREDNISONE RxNorm: 8640 05/05/2011 No Inactive Date Active cephalexin RxNorm: 2231 05/05/2011 No Inactive Date Active theophylline RxNorm: 49266 05/05/2011 No Inactive Date Active azithromycin Unknown 10/11/2011 No Inactive Date Active Levaquin RxNorm: 44381 10/11/2011 No Inactive Date Active MORPHINE SULFATE RxNorm: 7052 10/11/2011 No Inactive Date Active METRONIDAZOLE Unknown 05/05/2011 No Inactive Date Active Past Medical History Illness Codes Condition Status Onset Date Resolved Date Atrophy of thyroid (acquired) ICD-9: 244.8 ICD-10: E03.4 Active 05/27/2018 Unknown Type 2 diabetes mellitus with hyperglycemia [...] ICD-9: 285.8 ICD-10: D64.89 Active 09/20/2017 Unknown Cough ICD-9: 786.2 ICD-10: R05 Active 05/14/2017 Unknown Mild intermittent asthma with (acute) exacerbation ICD-9: 493.12 ICD-10: J45.21 Active 10/24/2015 Unknown Gastro-esophageal reflux disease without esophagitis ICD-9: [...] (acquired) ICD-9: 244.8 ICD-10: E03.4 05/27/2018 Active Type 2 diabetes mellitus with hyperglycemia [...] anemias ICD-9: 285.8 ICD-10: D64.89 09/20/2017 Active Cough ICD-9: 786.2 ICD-10: R05 05/14/2017 Active Mild intermittent asthma with (acute) exacerbation ICD-9: 493.12 ICD-10: J45.21 10/24/2015 Active Gastro-esophageal reflux disease without esophagitis ICD-9: [...] mL (0.083 %) solution for nebulization RxNorm: 348675 USE 1 VIAL IN NEBULIZER 4 TIMES DAILY NEEDED FOR ASTHMA 08/26/2018 No Stop Date Active Symbicort 160 mcg-4.5 mcg/actuation HFA aerosol inhaler RxNorm: 6341231 1 INH BID 06/07/2018 07/06/2018 Inactive Symbicort 160 mcg-4.5 mcg/actuation HFA aerosol inhaler RxNorm: 4401389 1 INH 06/07/2018 06/06/2018 Inactive glipizide 5 mg tablet RxNorm: 913813 1/2 Tablet(s) PO BID TAKE ONE-HALF TABLET BY MOUTH TWICE DAILY 05/27/2018 08/19/2019 Active Synthroid 75 mcg tablet RxNorm: 476784 1 Tablet(s) PO daily 05/15/2018 11/10/2018 Active Synthroid 75 mcg tablet RxNorm: 576815 1 Tablet(s) PO daily 05/15/2018 05/14/2018 Inactive Synthroid 88 mcg tablet RxNorm: 850572 TAKE 1 TABLET BY MOUTH ONCE DAILY 04/08/2018 05/14/2018 Inactive amiodarone 200 mg tablet RxNorm: 302429 1/2 Tablet(s) PO BID 01/21/2018 05/26/2018 Inactive Bactrim DS 800 mg-160 mg tablet RxNorm: 029822 1 Tablet(s) PO BID 01/03/2018 01/02/2018 Inactive take probiotic bid x 7 days Bactrim DS 800 mg-160 mg tablet RxNorm: 148096 1 Tablet(s) PO BID 01/03/2018 01/09/2018 Inactive take probiotic bid x 7 days nitrofurantoin 100 mg capsule RxNorm: 821317 1 Capsule(s) PO BID 12/31/2017 01/06/2018 Inactive nitrofurantoin 100 mg capsule RxNorm: 193058 1 Capsule(s) PO BID 12/31/2017 12/30/2017 Inactive nitrofurantoin 100 mg capsule RxNorm: 559279 1 Capsule(s) PO BID 12/31/2017 12/30/2017 Inactive glipizide 5 mg tablet RxNorm: 767212 TAKE ONE-HALF TABLET BY MOUTH TWICE DAILY 11/23/2017 05/26/2018 Inactive meclizine 25 mg tablet RxNorm: 419875 1 Tablet(s) PO Q6 PRN 11/13/2017 No Stop Date Active Kenalog 40 mg/mL suspension for injection RxNorm: 1418760 1.5 Milliliter(s) Inj 10/30/2017 10/30/2017 Inactive Augmentin 875 mg-125 mg tablet RxNorm: 149219 1 Tablet(s) PO BID 10/30/2017 11/05/2017 Inactive Synthroid 88 mcg tablet RxNorm: 744884 TAKE ONE TABLET BY MOUTH ONCE DAILY 10/15/2017 04/07/2018 Inactive metformin 500 mg tablet RxNorm: 490477 TAKE ONE TABLET BY MOUTH WITH BREAKFAST AND ONE TABLET WITH LUNCH AND TWO TABLETS WITH SUPPER 10/15/2017 01/20/2018 Inactive albuterol sulfate 2.5 mg/3 mL (0.083 %) solution for nebulization RxNorm: 325967 USE ONE VIAL IN NEBULIZER 4 TIMES DAILY NEEDED FOR ASTHMA 08/16/2017 08/25/2018 Inactive Plavix 75 mg tablet RxNorm: 791015 TAKE ONE TABLET BY MOUTH ONCE DAILY 06/25/2017 06/24/2017 Inactive Plavix 75 mg tablet RxNorm: 799557 1 Tablet(s) PO daily TAKE ONE TABLET BY MOUTH ONCE DAILY 06/25/2017 09/19/2017 Inactive acyclovir 800 mg tablet RxNorm: 953454 1 Tablet(s) PO QID 05/15/2017 05/14/2017 Inactive acyclovir 800 mg tablet RxNorm: 969852 1 Tablet(s) PO QID 05/15/2017 05/21/2017 Inactive tramadol 50 mg tablet RxNorm: 252672 1 Tablet(s) PO TID 05/15/2017 05/24/2017 Inactive ketorolac 60 mg/2 mL intramuscular solution RxNorm: 628084 2 Milliliter(s) IM 05/14/2017 05/14/2017 Inactive Augmentin 875 mg-125 mg tablet RxNorm: 380811 1 Tablet(s) PO BID 05/14/2017 05/23/2017 Inactive Synthroid 88 mcg tablet RxNorm: 243275 TAKE ONE TABLET BY MOUTH ONCE DAILY; NEED THYROID LABS DONE 04/16/2017 10/12/2017 Inactive Kenalog 40 mg/mL suspension for injection RxNorm: 4171783 Milliliter(s) Inj 03/06/2017 03/06/2017 Inactive metformin 500 mg tablet RxNorm: 230732 1 Tablet(s) UD 1 tab at breakfast, 1tab at lunch, 2 tab at supper 03/06/2017 09/01/2017 Inactive glipizide 5 mg tablet RxNorm: 513736 TAKE ONE-HALF TABLET BY MOUTH TWICE DAILY 02/23/2017 11/19/2017 Inactive Synthroid 88 mcg tablet RxNorm: 910933 Tablet(s) PO TAKE ONE TABLET BY MOUTH DAILY 01/17/2017 04/15/2017 Inactive Needs thyroid labs done Plavix 75 mg tablet RxNorm: 674218 TAKE ONE TABLET BY MOUTH ONCE DAILY 12/25/2016 06/22/2017 Inactive Kenalog 40 mg/mL suspension for injection RxNorm: 8871750 1.5 Milliliter(s) Inj 09/04/2016 09/04/2016 Inactive Janumet XR 100 mg-1,000 mg tablet,extended release RxNorm: 3152433 1 Tablet(s) PO daily 09/04/2016 03/02/2017 Inactive glipizide 5 mg tablet RxNorm: 726877 TAKE ONE-HALF TABLET BY MOUTH TWICE DAILY 08/24/2016 02/19/2017 Inactive Janumet XR 50 mg-1,000 mg tablet,extended release RxNorm: 4823744 TAKE ONE TABLET BY MOUTH ONCE DAILY 05/29/2016 09/03/2016 Inactive metoprolol tartrate 25 mg tablet RxNorm: 057076 1/4 Tablet(s) PO BID 05/01/2016 05/29/2016 Inactive glipizide 5 mg tablet RxNorm: 753167 TAKE ONE-HALF TABLET BY MOUTH TWICE DAILY 02/21/2016 08/18/2016 Inactive ProAir HFA 90 mcg/actuation aerosol inhaler RxNorm: 729437 2 Puff(s) INH PRN as needed ASTHMA 02/03/2016 03/03/2016 Inactive Accu-Chek Active Test strips RxNorm: 1 test Miscellaneous daily 02/03/2016 08/25/2019 Active DX250.00 albuterol sulfate 2.5 mg/3 mL (0.083 %) solution for nebulization RxNorm: 248229 1 Milliliter(s) INH QID as needed ASTHMA 02/03/2016 06/01/2016 Inactive Janumet XR 50 mg-1,000 mg tablet,extended release RxNorm: 8916885 1 Tablet(s) PO daily 02/03/2016 05/28/2016 Inactive Augmentin 875 mg-125 mg tablet RxNorm: 198564 1 Tablet(s) PO BID 02/03/2016 02/12/2016 Inactive sucralfate 1 gram tablet RxNorm: 280028 1 Tablet(s) PO QID - take 30 minutes before meals and before supper 12/21/2015 04/18/2016 Inactive metformin ER 500 mg tablet,extended release 24 hr RxNorm: 674429 1 Tablet(s) PO BID 12/21/2015 02/02/2016 Inactive digoxin 250 mcg tablet RxNorm: 510376 1 Tablet(s) PO daily 12/21/2015 01/20/2018 Inactive Synthroid 88 mcg tablet RxNorm: 367611 Tablet(s) PO TAKE ONE TABLET BY MOUTH DAILY 12/20/2015 01/16/2017 Inactive Plavix 75 mg tablet RxNorm: 359628 1 Tablet(s) PO daily 12/20/2015 12/13/2016 Inactive Kenalog 40 mg/mL suspension for injection RxNorm: 1527838 1 Milliliter(s) Inj 11/11/2015 11/11/2015 Inactive Kenalog 40 mg/mL suspension for injection RxNorm: 6610956 1 Milliliter(s) Inj 10/25/2015 10/25/2015 Inactive metformin 500 mg tablet RxNorm: 001856 2 Tablet(s) PO BID 07/16/2015 12/20/2015 Inactive metformin 500 mg tablet RxNorm: 610729 TAKE TWO TABLETS BY MOUTH TWICE DAILY 07/16/2015 12/20/2015 Inactive albuterol sulfate 2.5 mg/3 mL (0.083 %) solution for nebulization RxNorm: 275857 1 Milliliter(s) INH QID as needed ASTHMA 07/14/2015 11/10/2015 Inactive glipizide 5 mg tablet RxNorm: 035998 1/2 Tablet(s) PO BID 02/03/2015 01/28/2016 Inactive Symbicort 160 mcg-4.5 mcg/actuation HFA aerosol inhaler RxNorm: 6412239 1 INH 01/06/2015 06/06/2018 Inactive metformin 500 mg tablet RxNorm: 543009 2 Tablet(s) PO BID 12/22/2014 06/19/2015 Inactive Plavix 75 mg tablet RxNorm: 850440 1 Tablet(s) PO daily 12/02/2014 11/26/2015 Inactive note directions of one per day Synthroid 88 mcg tablet RxNorm: 290368 1 Tablet(s) PO daily TAKE ONE TABLET BY MOUTH DAILY 12/02/2014 04/07/2018 Inactive Accu-Chek Active Test strips RxNorm: 1 test Miscellaneous daily 08/17/2014 02/02/2016 Inactive DX250.00 Kenalog 40 mg/mL suspension for injection RxNorm: 8929073 Milliliter(s) Inj 08/17/2014 08/17/2014 Inactive doxycycline hyclate 100 mg tablet RxNorm: 140551 1 Tablet(s) PO BID 08/17/2014 08/26/2014 Inactive albuterol sulfate 2.5 mg/3 mL (0.083 %) solution for nebulization RxNorm: 479803 1 Milliliter(s) INH QID as needed ASTHMA 08/17/2014 08/16/2014 Inactive albuterol sulfate 2.5 mg/3 mL (0.083 %) solution for nebulization RxNorm: 393910 1 Milliliter(s) INH QID as needed ASTHMA 08/17/2014 12/14/2014 Inactive doxycycline hyclate 100 mg tablet RxNorm: 984586 1 Tablet(s) PO BID 08/17/2014 08/16/2014 Inactive Accu-Chek Multiclix Lancet RxNorm: 1 Miscellaneous daily TEST BLOOD SUGAR EVERY DAY 08/17/2014 09/10/2015 Inactive DX 250.00 metformin 500 mg tablet RxNorm: 288014 TAKE TWO TABLETS BY MOUTH TWICE DAILY 06/23/2014 09/20/2014 Inactive metformin 500 mg tablet RxNorm: 948883 2 Tablet(s) PO BID 06/22/2014 12/18/2014 Inactive Bactrim DS 800 mg-160 mg tablet RxNorm: 113837 1 Tablet(s) PO BID 05/11/2014 05/17/2014 Inactive Bactrim DS 800 mg-160 mg tablet RxNorm: 511739 1 Tablet(s) PO BID 05/11/2014 05/10/2014 Inactive Kenalog 40 mg/mL suspension for injection RxNorm: 7465123 Milliliter(s) Inj 04/13/2014 04/13/2014 Inactive Accu-Chek Active Test strips RxNorm: 1 TEST MISCELLANEOUS BID 04/06/2014 10/22/2014 Inactive glipizide 5 mg tablet RxNorm: 698814 1/2 Tablet(s) PO BID 03/03/2014 02/02/2015 Inactive Synthroid 88 mcg tablet RxNorm: 192047 1 Tablet(s) PO daily TAKE ONE TABLET BY MOUTH DAILY 12/11/2013 12/01/2014 Inactive Plavix 75 mg tablet RxNorm: 256587 1 Tablet(s) PO daily 12/11/2013 12/01/2014 Inactive note directions of one per day glipizide 5 mg tablet RxNorm: 024669 1/2 Tablet(s) PO BID 11/10/2013 03/02/2014 Inactive Lipitor 10 mg tablet RxNorm: 086727 1 Tablet(s) PO daily 11/10/2013 12/21/2014 Inactive Accu-Chek Active Test strips RxNorm: strip miscellaneous TEST BLOOD SUGAR EVERY DAY 11/03/2013 No Stop Date Active Accu-Chek Multiclix Lancet RxNorm: misc miscellaneous TEST BLOOD SUGAR EVERY DAY 08/07/2013 08/16/2014 Inactive Accu-Chek Active Test strips RxNorm: strip miscellaneous TEST BLOOD SUGAR EVERY DAY 08/05/2013 No Stop Date Active digoxin 125 mcg tablet RxNorm: 503970 1 Tablet(s) PO daily 08/05/2013 10/28/2014 Inactive metformin 500 mg tablet RxNorm: 928813 2 Tablet(s) PO BID 06/12/2013 06/21/2014 Inactive metformin 500 mg tablet RxNorm: 376624 2 Tablet(s) PO BID 05/12/2013 06/11/2013 Inactive metformin 500 mg tablet RxNorm: 120921 Tablet(s) PO TAKE ONE & ONE-HALF TABLETS BY MOUTH TWICE DAILY 04/10/2013 05/11/2013 Inactive Synthroid 88 mcg tablet RxNorm: 217438 Tablet(s) PO TAKE ONE TABLET BY MOUTH DAILY 01/07/2013 12/19/2015 Inactive Synthroid 88 mcg tablet RxNorm: 215138 1 Tablet(s) PO daily TAKE ONE TABLET BY MOUTH DAILY 01/06/2013 12/10/2013 Inactive Plavix 75 mg tablet RxNorm: 637573 1 Tablet(s) PO daily 12/09/2012 12/03/2013 Inactive note directions of one per day Lipitor 80 mg tablet RxNorm: 161995 Tablet(s) PO TAKE 1 TABLET BY MOUTH EVERY DAY 10/28/2012 11/09/2013 Inactive Synthroid 88 mcg tablet RxNorm: 297512 Tablet(s) PO TAKE ONE TABLET BY MOUTH DAILY 10/07/2012 10/06/2012 Inactive Synthroid 88 mcg tablet RxNorm: 737571 1 Tablet(s) PO daily TAKE ONE TABLET BY MOUTH DAILY 10/07/2012 01/05/2013 Inactive Kenalog 40 mg/mL Susp for Injection RxNorm: 7678040 1 Milliliter(s) IM 10/07/2012 10/07/2012 Inactive digoxin 250 mcg tablet RxNorm: 8131308 1/2 Tablet(s) PO daily 07/15/2012 08/04/2013 Inactive Synthroid 88 mcg tablet RxNorm: 517721 Tablet(s) PO TAKE ONE TABLET BY MOUTH DAILY 06/28/2012 10/06/2012 Inactive Accu-Chek Multiclix Lancet RxNorm: Misc Miscellaneous 06/05/2012 No Stop Date Active TEST BLOOD SUGAR EVERY DAY Accu-Chek Active Test Strips RxNorm: Strip Miscellaneous 06/05/2012 No Stop Date Active TEST BLOOD SUGAR EVERY DAY Lipitor 80 mg tablet RxNorm: 930853 1/2 Tablet(s) PO daily 03/28/2012 No Stop Date Active TAKE 1 TABLET BY MOUTH EVERY DAY metformin 500 mg tablet RxNorm: 309377 1.5 Tablet(s) PO BID 03/28/2012 04/09/2013 Inactive Lipitor 80 mg tablet RxNorm: 233896 1/2 Tablet(s) PO 03/28/2012 08/16/2014 Inactive TAKE 1 TABLET BY MOUTH EVERY DAY Lipitor 80 mg tablet RxNorm: 456455 1/2 Tablet(s) PO daily 03/28/2012 No Stop Date Active TAKE 1 TABLET BY MOUTH EVERY DAY Influenza Virus Vaccine 0.5 mL RxNorm: IM 03/26/2012 03/26/2012 Inactive Pneumovax 23 25 mcg/0.5 mL Injection RxNorm: 151159 Milliliter(s) Inj 03/26/2012 03/26/2012 Inactive metformin 500 mg tablet RxNorm: 044488 1 Tablet(s) PO BID 11/27/2011 03/27/2012 Inactive Plavix 75 mg tablet RxNorm: 876747 1 Tablet(s) PO daily 11/01/2011 11/24/2012 Inactive note directions of one per day Lipitor 80 mg tablet RxNorm: 037935 Tablet(s) PO 10/18/2011 03/27/2012 Inactive TAKE 1 TABLET BY MOUTH EVERY DAY Protonix 40 mg Tab RxNorm: 822669 1 Tablet(s) PO BID 10/11/2011 12/20/2015 Inactive Accu-Chek Active Test Strips RxNorm: 1 test Miscellaneous daily 10/04/2011 08/16/2014 Inactive Carafate 1 gram Tab RxNorm: 394531 1 Tablet(s) PO QID 10/02/2011 10/31/2011 Inactive Carafate 1 gram Tab RxNorm: 964373 1 Tablet(s) PO TID 09/29/2011 09/28/2011 Inactive Carafate 1 gram Tab RxNorm: 079076 1 Tablet(s) PO TID 09/29/2011 10/01/2011 Inactive Kenalog 40 mg/mL Susp for Injection RxNorm: 9776451 2 Milliliter(s) Inj 07/31/2011 07/31/2011 Inactive Synthroid 88 mcg tablet RxNorm: 213539 1 Tablet(s) PO daily 06/06/2011 10/11/2011 Inactive Accu-Chek Active Test Strips RxNorm: 1 test Miscellaneous BID 06/05/2011 10/03/2011 Inactive Accu-Chek Multiclix Lancet RxNorm: 1 test Miscellaneous BID 06/02/2011 09/24/2011 Inactive Accu-Chek Active Test strips RxNorm: 1 test Miscellaneous BID 06/02/2011 06/04/2011 Inactive Bactrim DS 800 mg-160 mg Tab RxNorm: 240490 1 Tablet(s) PO BID 05/22/2011 05/31/2011 Inactive metformin 500 mg Tab RxNorm: 252300 1 Tablet(s) PO TID 05/05/2011 10/31/2011 Inactive Influenza Virus Vaccine 0.5 mL RxNorm: IM 05/02/2011 05/02/2011 Inactive albuterol sulfate HFA 90 mcg/Actuation Aerosol Inhaler RxNorm: 550706 1 Puff(s) INH PRN prn shortness of breath No Start Date Active Xarelto 20 mg tablet RxNorm: 0182360 1 Tablet(s) PO daily No Start Date Active multivitamin chewable tablet RxNorm: 1 Tablet(s) PO daily No Start Date Active Fish Oil 300 mg-1,000 mg capsule RxNorm: 676177 1 Capsule(s) PO occasional No Start Date Active hyoscyamine 0.125 mg sublingual tablet RxNorm: 5905891 1 Tablet(s) SL Q6 No Start Date Active simvastatin 20 mg tablet RxNorm: 400642 1/2 Tablet(s) PO daily No Start Date 12/20/2015 Inactive Zantac 75 75 mg Tab RxNorm: 478863 2 Tablet(s) PO daily No Start Date 12/20/2015 Inactive Protonix 40 mg Tab RxNorm: 566447 1 Tablet(s) PO daily No Start Date 10/10/2011 Inactive Fish Oil 1,000 mg capsule RxNorm: 3 Capsule(s) PO daily No Start Date 12/20/2015 Inactive amiodarone 400 mg tablet RxNorm: 480571 1 Tablet(s) PO daily No Start Date 12/09/2017 Inactive digoxin 125 mcg tablet RxNorm: 7828242 1 Tablet(s) PO daily No Start Date 08/04/2013 Inactive Brilinta 90 mg Tab RxNorm: 5121689 1 Tablet(s) PO daily No Start Date 10/10/2011 Inactive Fish Oil 1,000 mg Cap RxNorm: 3 Capsule(s) PO daily No Start Date 12/21/2015 Inactive Flintstones Complete 18 mg iron chewable tablet RxNorm: 2 Tablet(s) PO daily No Start Date 12/20/2015 Inactive Niaspan Extended-Release 500 mg 24 hr Tab RxNorm: 7215100 1 Tablet(s) PO daily No Start Date 09/24/2011 Inactive samples tramadol 50 mg tablet RxNorm: 340427 1 Tablet(s) PO TID No Start Date 05/14/2017 Inactive aspirin 81 mg Cap, Delayed Release RxNorm: 058867 Capsule(s) PO daily No Start Date 05/01/2012 Inactive pantoprazole 40 mg tablet,delayed release RxNorm: 765237 1 Tablet(s) PO daily No Start Date 05/26/2018 Inactive metformin 500 mg Tab RxNorm: 938603 1 Tablet(s) PO BID No Start Date 05/04/2011 Inactive Singulair 10 mg tablet RxNorm: 380722 1 Tablet(s) PO daily No Start Date 05/26/2018 Inactive Prilosec OTC 20 mg tablet,delayed release RxNorm: 569106 1 Tablet(s) PO daily No Start Date 10/31/2016 Inactive Zantac 150 mg Tab RxNorm: 301546 1 Tablet(s) PO BID No Start Date 10/10/2011 Inactive Synthroid 88 mcg Tab RxNorm: 558289 1 Tablet(s) PO daily No Start Date 06/05/2011 Inactive Plavix 75 mg Tab RxNorm: 646447 1 Tablet(s) PO daily No Start Date 10/31/2011 Inactive amiodarone 200 mg tablet RxNorm: 256904 1 Tablet(s) PO BID No Start Date 01/20/2018 Inactive Cartia XT 120 mg capsule,extended release RxNorm: 696256 1 Capsule(s) PO daily and 1 QPM if HR above [address] Dr Aguilar manages No Start Date 05/26/2018 Inactive aspirin 81 mg Cap, Delayed Release RxNorm: 830121 1 Capsule(s) PO daily No Start Date 10/01/2011 Inactive Lipitor 80 mg Tab RxNorm: 730462 1 Tablet(s) PO daily No Start Date 10/17/2011 Inactive Symbicort 160 mcg-4.5 mcg/Actuation HFA Aerosol Inhaler RxNorm: 8743945 1 INH No Start Date 01/05/2015 Inactive Medication Administered Medication Codes Instructions Start Date Status Kenalog 40 mg/mL suspension for injection RxNorm: 8598579 1.5Milliliter 10/30/2017 No longer Active ketorolac 60 mg/2 mL intramuscular solution RxNorm: 391267 2Milliliter 05/14/2017 No longer Active Kenalog 40 mg/mL suspension for injection RxNorm: 6166492 Milliliter 03/06/2017 No longer Active Kenalog 40 mg/mL suspension for injection RxNorm: 8788556 1.5Milliliter 09/04/2016 No longer Active Kenalog 40 mg/mL suspension for injection RxNorm: 1132035 1Milliliter 11/11/2015 No longer Active Kenalog 40 mg/mL suspension for injection RxNorm: 3696539 1Milliliter 10/25/2015 No longer Active Kenalog 40 mg/mL suspension for injection RxNorm: 3006259 Milliliter 08/17/2014 No longer Active Kenalog 40 mg/mL suspension for injection RxNorm: 1847277 Milliliter 04/13/2014 No longer Active Kenalog 40 mg/mL Susp for Injection RxNorm: 4336244 1Milliliter 10/07/2012 No longer Active Influenza Virus Vaccine 0.5 mL RxNorm: 03/26/2012 No longer Active Pneumovax 23 25 mcg/0.5 mL Injection RxNorm: 267019 Milliliter 03/26/2012 No longer Active Kenalog 40 mg/mL Susp for Injection RxNorm: 7511719 2Milliliter 07/31/2011 No longer Active Influenza Virus [...] 05/05/2010 completed Assessments Condition Codes Effective Dates Atrophy of thyroid (acquired) ICD-10: E03.4 ICD-9: 244.8 05/27/2018 Type 2 diabetes mellitus with hyperglycemia ICD-10: E11.65 ICD-9: 250.02 05/27/2018 Type 2 diabetes mellitus without complications ICD-10: [...] bilateral ICD-10: H81.13 ICD-9: 386.11 11/13/2017 Other allergic rhinitis ICD-10: J30.89 ICD-9: 477.8 11/13/2017 Other specified anemias ICD-10: D64.89 ICD-9: 285.8 11/13/2017 Mild intermittent asthma with (acute) exacerbation ICD-10: J45.21 ICD-9: 493.12 10/30/2017 Cough ICD-10: R05 ICD-9: 786.2 10/30/2017 Gastro-esophageal reflux disease without esophagitis ICD-10: K21.9 [...] Immunization, pneumococcus and influenza ICD-9: V06.6 03/26/2012 ANEMIA ICD-9: 285.9 10/25/2011 Gastritis ICD-9: 535.50 10/25/2011 Anemia associated with acute blood loss ICD-9: 285.1 10/11/2011 Gastritis, acute with hemorrhage ICD-9: 535.01 10/11/2011 Abdominal pain ICD-9: 789.00 10/04/2011 Hematochezia ICD-9: 578.1 10/04/2011 Coronary artery disease ICD-9: 414.00 09/25/2011 Cervicalgia ICD-9: 723.1 07/31/2011 Muscle spasm ICD-9: 728.85 07/31/2011 MYALGIA AND MYOSITIS ICD-9: 729.1 07/31/2011 Arthralgia ICD-9: 719.40 07/31/2011 ACUTE SINUSITIS ICD-9: 461.9 05/22/2011 Reason For Visit Reason For Visit Effective Dates Notes hypertension 05/27/2018 hypertension 01/21/2018 dizziness 12/04/2017 dizziness [...] Item Item Code Result Date A1C HPLC 3279531 Hgb A1c 90421-9 7.9 % 09/11/2018 CBC 5174484 WBC 5.6 10e9/L 09/11/2018 CBC 1471961 RBC 5.07 10e12/L 09/11/2018 CBC 7660669 HEMOGLOBIN 13.7 g/dL 09/11/2018 CBC 1562873 HEMATOCRIT 43.9 % 09/11/2018 CBC 3831703 MCV 86.6 fL 09/11/2018 CBC 0627369 MCH 27.0 pg 09/11/2018 CBC 7083356 MCHC 31.2 g/dL 09/11/2018 CBC 5834084 PLATELET COUNT 282 10e9/L 09/11/2018 CBC 8732256 Mean Plt Volume 10.3 fL 09/11/2018 CBC 9551225 Neut Auto 46.8 % 09/11/2018 CBC 3092302 Lymph Auto 28.0 % 09/11/2018 CBC 0287218 Towner Auto 10.5 % 09/11/2018 CBC 0521902 RDW 15.9 % 09/11/2018 CBC 4603604 Eos Auto 12.9 % 09/11/2018 CBC 8461511 Baso Auto 1.8 % 09/11/2018 CBC 6405511 Neutrophil Abs 2.62 10e9/L 09/11/2018 CBC 1690426 Lymphocyte Abs 1.57 10e9/L 09/11/2018 CBC 8127588 Monocyte Abs 0.59 10e9/L 09/11/2018 CBC 3987806 Eosinophil Abs 0.72 10e9/L 09/11/2018 CBC 6184663 RDW-SD 49.6 fL 09/11/2018 CBC 3126519 Basophil Abs 0.10 10e9/L 09/11/2018 CHEM 14 2422432 AST 17 U/L 09/11/2018 CHEM 14 7439009 ALT 14 U/L 09/11/2018 CHEM 14 8036243 BUN 20 mg/dL 09/11/2018 CHEM 14 1071038 ALBUMIN 3.8 g/dL 09/11/2018 CHEM 14 8953138 CHLORIDE 104 mmol/L 09/11/2018 CHEM 14 0989399 Bili Total 0.7 mg/dL 09/11/2018 CHEM 14 0467410 ALK PHOS 64 U/L 09/11/2018 CHEM 14 9512752 SODIUM 143 mmol/L 09/11/2018 CHEM 14 4041094 CREATININE 0.75 mg/dL 09/11/2018 CHEM 14 6104360 CALCIUM 9.3 mg/dL 09/11/2018 CHEM 14 5111445 POTASSIUM 4.3 mmol/L 09/11/2018 CHEM 14 2864863 TOTAL PROTEIN 6.5 g/dL 09/11/2018 CHEM 14 9922817 GLUCOSE 174 mg/dL 09/11/2018 CHEM 14 6984574 Bicarbonate 31 mmol/L 09/11/2018 CHEM 14 3450007 AGAP 8 mmol/L 09/11/2018 FREE T4 5794114 T4 Free 1.16 ng/dL 09/11/2018 MEAN GLUC 6314551 Calc Mean Gluc 180 mg/dL 09/11/2018 TSH 6249810 TSH 1.080 uIU/mL 09/11/2018 GFR CALC 2647924 GFR Non Afr Amr >60 mL/min 09/11/2018 GFR CALC 5195218 GFR Afr Amr >60 mL/min 09/11/2018 Tsh Ord6 TSH (3rd IS) 2.15 uIU/mL [...] 27.5 pg 05/09/2018 Cbc With Differential Ord2 Towner% 11.6 % 05/09/2018 Cbc With Differential Ord2 [...] 1.18 K/ul 05/09/2018 Cbc With Differential Ord2 Towner ABS# 0.8 K/ul 05/09/2018 Cbc With Differential Ord2 Eos ABS# 0.7 K/ul 05/09/2018 Cbc With Differential Ord2 Baso ABS# 0.1 K/ul 05/09/2018 %Hba1C Kgn101 % HbA1c 18677- 6 8.9 % 05/09/2018 %Hba1C Mje870 Gluc Ave 209 mg/dL 05/09/2018 Free T4 Neb581 FREE T4 1.66 ng/dL 05/09/2018 Metabolic Ord15 NA 139 mEq/L 05/09/2018 [...] 05/09/2018 Metabolic Ord15 CALCIUM 9.3 mg/dL 05/09/2018 LIPID GRP CHOLESTEROL 184 mg/dL 01/14/2018 LIPID GRP Triglyceride 65 mg/dL 01/14/2018 LIPID GRP HDL CHOLESTEROL 53 mg/dL 01/14/2018 LIPID GRP Chol/HDL Ratio 3.47 ratio 01/14/2018 LIPID GRP NON-HDL Chol 131 mg/dL 01/14/2018 LIPID GRP LDL Cholesterol 118 mg/dL 01/14/2018 A1C HPLC 1284857 Hgb A1c 72143-0 6.5 % 01/14/2018 CBC 6302264 WBC 5.8 10e9/L 01/14/2018 CBC [id number] RBC 4.67 10e12/L 01/14/2018 CBC [id number] HEMOGLOBIN 12.4 g/dL 01/14/2018 CBC [id number] HEMATOCRIT 40.6 % 01/14/2018 CBC [id number] MCV 86.9 fL 01/14/2018 CBC 1554571 MCH 26.6 pg 01/14/2018 CBC 8028720 MCHC 30.5 g/dL 01/14/2018 CBC [id number] PLATELET COUNT 419 10e9/L 01/14/2018 CBC 4762200 Mean Plt Volume 10.1 fL 01/14/2018 CBC 7494480 Neut Auto 60.7 % 01/14/2018 CBC 9244798 Lymph Auto 24.8 % 01/14/2018 CBC 2167786 Towner Auto 9.7 % 01/14/2018 CBC 2058222 RDW 25.0 % 01/14/2018 CBC 9460085 Eos Auto 3.4 % 01/14/2018 CBC [id number] Baso Auto 1.4 % 01/14/2018 CBC 2892976 Neutrophil Abs 3.52 10e9/L 01/14/2018 CBC 7391672 Lymphocyte Abs 1.44 10e9/L 01/14/2018 CBC 3328410 Monocyte Abs 0.56 10e9/L 01/14/2018 CBC [id number] Eosinophil Abs 0.20 10e9/L 01/14/2018 CBC [id number] RDW-SD 75.4 fL 01/14/2018 CBC [id number] Basophil Abs 0.08 10e9/L 01/14/2018 MEAN GLUC 4370076 Calc Mean Gluc 140 mg/dL 01/14/2018 Culture Urine [id number] URINE CULTURE SEE NOTES 01/03/2018 Culture Urine [id number] Continued Results 01/03/2018 Urine Culture Ucult Complete >100,000 col/ml aerobic growth sent to ref lab 01/01/2018 Ferritin Ord22 FERRITIN 4.0 ng/mL 12/04/2017 Tibc Ord40 Iron 15 ug/dl 12/04/2017 Tibc Ord40 UIBC 389 ug/dL 12/04/2017 Tibc Ord40 TIBC 404 ug/dL 12/04/2017 Tibc Ord40 Fe-%Sat 3.7 % 12/04/2017 Comp Metabolic Mfb969 NA 142 mEq/L 11/20/2017 Comp Metabolic Vfq221 K 4.1 mEq/L 11/20/2017 Comp Metabolic Pdm654 CL 104 mEq/L 11/20/2017 Comp Metabolic Xkv501 CO2 29.0 mEq/L 11/20/2017 Comp Metabolic Wmb647 ANION GAP 13 11/20/2017 Comp Metabolic Isf232 GLUCOSE 178 mg/dL 11/20/2017 Comp Metabolic Eii385 Creat 0.6 mg/dL 11/20/2017 Comp Metabolic Ytv162 eGFR 112 ml/min/1.73m2 11/20/2017 Comp Metabolic Xae903 BUN 19 mg/dL 11/20/2017 Comp Metabolic Aoa344 B/C Ratio 33.9 Ratio 11/20/2017 Comp Metabolic Iey472 CALCIUM 9.3 mg/dL 11/20/2017 Comp Metabolic Nbm924 ALK PHOS 60 U/L 11/20/2017 Comp Metabolic Twl205 AST(SGOT) 13 U/L 11/20/2017 Comp Metabolic Dtn509 ALT(SGPT) 14 U/L 11/20/2017 Comp Metabolic Fgv860 BILI T 0.4 mg/dL 11/20/2017 Comp Metabolic Dpc525 ALBUMIN 4.1 g/dL 11/20/2017 Comp Metabolic Gyi805 TPRO 6.0 g/dL 11/20/2017 Comp Metabolic Umb952 GLOB 1.9 g/dL 11/20/2017 Comp Metabolic Icy522 A/G Ratio 2.2 Ratio 11/20/2017 Comp Metabolic Qvt250 Osmo 290 mOsmo 11/20/2017 Cbc With Differential Ord2 WBC 9.17 K/ul 11/20/2017 Cbc With Differential Ord2 RBC 4.11 M/ul 11/20/2017 Cbc With Differential Ord2 HGB 10.2 g/dl 11/20/2017 Cbc With Differential Ord2 Neut% 70.0 % 11/20/2017 Cbc With Differential Ord2 HCT 33.3 % 11/20/2017 Cbc With Differential Ord2 Lymph% 18.0 % 11/20/2017 Cbc With Differential Ord2 MCV 81.0 fl 11/20/2017 Cbc With Differential Ord2 MCH 24.8 pg 11/20/2017 Cbc With Differential Ord2 Towner% 7.9 % 11/20/2017 Cbc With Differential Ord2 MCHC 30.6 pg 11/20/2017 Cbc With Differential Ord2 Eos% 3.4 % 11/20/2017 Cbc With Differential Ord2 Baso% 0.7 % 11/20/2017 Cbc With Differential Ord2 PLT 445 K/ul 11/20/2017 Cbc With Differential Ord2 RDW 15.6 % 11/20/2017 Cbc With Differential Ord2 Neut ABS# 6.43 K/ul 11/20/2017 Cbc With Differential Ord2 Lymph ABS# 1.65 K/ul 11/20/2017 Cbc With Differential Ord2 Towner ABS# 0.7 K/ul 11/20/2017 Cbc With Differential Ord2 Eos ABS# 0.3 K/ul 11/20/2017 Cbc With Differential Ord2 Baso ABS# 0.1 K/ul 11/20/2017 Comp Metabolic Srh629 NA 142 mEq/L 11/13/2017 Comp Metabolic Air636 K 4.2 mEq/L 11/13/2017 Comp Metabolic Pey399 CL 104 mEq/L 11/13/2017 Comp Metabolic Uyy291 CO2 26.0 mEq/L 11/13/2017 Comp Metabolic Ydu658 ANION GAP 16 11/13/2017 Comp Metabolic Gbq680 GLUCOSE 115 mg/dL 11/13/2017 Comp Metabolic Cqu237 Creat 0.6 mg/dL 11/13/2017 Comp Metabolic Jow679 eGFR 114 ml/min/1.73m2 11/13/2017 Comp Metabolic Tpp505 BUN 15 mg/dL 11/13/2017 Comp Metabolic Dmq394 B/C Ratio 27.3 Ratio 11/13/2017 Comp Metabolic Mfw972 CALCIUM 9.2 mg/dL 11/13/2017 Comp Metabolic Xvg138 ALK PHOS 59 U/L 11/13/2017 Comp Metabolic Jeo317 AST(SGOT) 12 U/L 11/13/2017 Comp Metabolic Msz491 ALT(SGPT) 13 U/L 11/13/2017 Comp Metabolic Yxz483 BILI T 0.5 mg/dL 11/13/2017 Comp Metabolic Xzl885 ALBUMIN 4.0 g/dL 11/13/2017 Comp Metabolic Hpc119 TPRO 6.0 g/dL 11/13/2017 Comp Metabolic Sik932 GLOB 2.0 g/dL 11/13/2017 Comp Metabolic Csm078 A/G Ratio 2.0 Ratio 11/13/2017 Comp Metabolic Owh646 Osmo 285 mOsmo 11/13/2017 Cbc With Differential Ord2 WBC 10.77 K/ul 11/13/2017 Cbc With Differential Ord2 RBC 4.19 M/ul 11/13/2017 Cbc With Differential Ord2 HGB 10.4 g/dl 11/13/2017 Cbc With Differential Ord2 HCT 34.0 % 11/13/2017 Cbc With Differential Ord2 Neut% 74.7 % 11/13/2017 Cbc With Differential Ord2 Lymph% 14.6 % 11/13/2017 Cbc With Differential Ord2 MCV 81.1 fl 11/13/2017 Cbc With Differential Ord2 Towner% 7.8 % 11/13/2017 Cbc With Differential Ord2 MCH 24.8 pg 11/13/2017 Cbc With Differential Ord2 MCHC 30.6 pg 11/13/2017 Cbc With Differential Ord2 Eos% 2.3 % 11/13/2017 Cbc With Differential Ord2 PLT 458 K/ul 11/13/2017 Cbc With Differential Ord2 Baso% 0.6 % 11/13/2017 Cbc With Differential Ord2 RDW 15.2 % 11/13/2017 Cbc With Differential Ord2 Neut ABS# 8.04 K/ul 11/13/2017 Cbc With Differential Ord2 Lymph ABS# 1.57 K/ul 11/13/2017 Cbc With Differential Ord2 Towner ABS# 0.8 K/ul 11/13/2017 Cbc With Differential Ord2 Eos ABS# 0.3 K/ul 11/13/2017 Cbc With Differential Ord2 Baso ABS# 0.1 K/ul 11/13/2017 Comp Metabolic Bmf697 NA 138 mEq/L 09/20/2017 Comp Metabolic Qkr765 K 4.0 mEq/L 09/20/2017 Comp Metabolic Svv305 CL 99 mEq/L 09/20/2017 Comp Metabolic Lxo220 CO2 26.0 mEq/L 09/20/2017 Comp Metabolic Nvu500 ANION GAP 17 09/20/2017 Comp Metabolic Xst460 GLUCOSE 275 mg/dL 09/20/2017 Comp Metabolic Xhz556 Creat 0.6 mg/dL 09/20/2017 Comp Metabolic Kov925 eGFR 96 ml/min/1.73m2 09/20/2017 Comp Metabolic Fto074 BUN 17 mg/dL 09/20/2017 Comp Metabolic Cby394 B/C Ratio 26.6 Ratio 09/20/2017 Comp Metabolic Dfo716 CALCIUM 9.5 mg/dL 09/20/2017 Comp Metabolic Pgl886 ALK PHOS 57 U/L 09/20/2017 Comp Metabolic Gst348 AST(SGOT) 13 U/L 09/20/2017 Comp Metabolic Mtw543 ALT(SGPT) 13 U/L 09/20/2017 Comp Metabolic Gku359 BILI T 0.5 mg/dL 09/20/2017 Comp Metabolic Bje498 ALBUMIN 4.1 g/dL 09/20/2017 Comp Metabolic Oyh023 TPRO 5.9 g/dL 09/20/2017 Comp Metabolic Cao106 GLOB 1.8 g/dL 09/20/2017 Comp Metabolic Rxw402 A/G Ratio 2.3 Ratio 09/20/2017 Comp Metabolic Uks157 Osmo 287 mOsmo 09/20/2017 Cbc With Differential Ord2 WBC 9.05 K/ul 09/20/2017 Cbc With Differential Ord2 RBC 4.31 M/ul 09/20/2017 Cbc With Differential Ord2 HGB 11.6 g/dl 09/20/2017 Cbc With Differential Ord2 HCT 37.4 % 09/20/2017 Cbc With Differential Ord2 Neut% 68.0 % 09/20/2017 Cbc With Differential Ord2 Lymph% 17.1 % 09/20/2017 Cbc With Differential Ord2 MCV 86.8 fl 09/20/2017 Cbc With Differential Ord2 MCH 26.9 pg 09/20/2017 Cbc With Differential Ord2 Towner% 9.9 % 09/20/2017 Cbc With Differential Ord2 [...] 1.55 K/ul 09/20/2017 Cbc With Differential Ord2 Towner ABS# 0.9 K/ul 09/20/2017 Cbc With Differential Ord2 Eos ABS# 0.4 K/ul 09/20/2017 Cbc With Differential Ord2 Baso ABS# 0.1 K/ul 09/20/2017 %Hba1C Aop410 % HbA1c 00332- 6 7.2 % 09/20/2017 %Hba1C Kad517 Gluc Ave 160 mg/dL 09/20/2017 MEAN GLUC 3695952 Calc Mean Gluc 169 mg/dL 02/28/2017 CBC [id number] WBC 7.6 10e9/L 02/28/2017 CBC 8970796 RBC 4.91 10e12/L 02/28/2017 CBC 5426381 HEMOGLOBIN 13.2 g/dL 02/28/2017 CBC 4701875 HEMATOCRIT 42.7 % 02/28/2017 CBC 0215292 MCV 87.0 fL 02/28/2017 CBC 5833307 MCH 26.9 pg 02/28/2017 CBC 1109380 MCHC 30.9 g/dL 02/28/2017 CBC 4961221 PLATELET COUNT 341 10e9/L 02/28/2017 CBC 3173150 Mean Plt Volume 10.7 fL 02/28/2017 CBC 0794754 Neut Auto 62.1 % 02/28/2017 CBC 6157340 Lymph Auto 20.2 % 02/28/2017 CBC 6075088 Towner Auto 9.3 % 02/28/2017 CBC 3365044 RDW 15.8 % 02/28/2017 CBC 1872143 Eos Auto 7.1 % 02/28/2017 CBC 7256146 Baso Auto 1.3 % 02/28/2017 CBC 3661736 Neutrophil Abs 4.72 10e9/L 02/28/2017 CBC 2970336 Lymphocyte Abs 1.54 10e9/L 02/28/2017 CBC 6910859 Monocyte Abs 0.71 10e9/L 02/28/2017 CBC 8597728 Eosinophil Abs 0.54 10e9/L 02/28/2017 CBC 7646144 RDW-SD 49.0 fL 02/28/2017 CBC 0801658 Basophil Abs 0.10 10e9/L 02/28/2017 A1C HPLC 0236670 Hgb A1c 82339-3 7.5 % 02/28/2017 LIPID GRP CHOLESTEROL 189 mg/dL 02/28/2017 LIPID GRP Triglyceride 124 mg/dL 02/28/2017 LIPID GRP HDL CHOLESTEROL 43 mg/dL 02/28/2017 LIPID GRP Chol/HDL Ratio 4.40 ratio 02/28/2017 LIPID GRP NON-HDL Chol 146 mg/dL 02/28/2017 LIPID GRP LDL Cholesterol 121 mg/dL 02/28/2017 GFR CALC 6893639 GFR Non Afr Amr >60 mL/min 02/28/2017 GFR CALC 2385303 GFR Afr Amr >60 mL/min 02/28/2017 CHEM 14 5429480 AST 15 U/L 02/28/2017 CHEM 14 6976728 ALT 16 U/L 02/28/2017 CHEM 14 1639203 BUN 18 mg/dL 02/28/2017 CHEM 14 2022677 ALBUMIN 4.0 g/dL 02/28/2017 CHEM 14 5502819 CHLORIDE 104 mmol/L 02/28/2017 CHEM 14 6728566 Bili Total 0.6 mg/dL 02/28/2017 CHEM 14 8129262 ALK PHOS 53 U/L 02/28/2017 CHEM 14 5498280 SODIUM 143 mmol/L 02/28/2017 CHEM 14 7799771 CREATININE 0.66 mg/dL 02/28/2017 CHEM 14 3205602 CALCIUM 9.2 mg/dL 02/28/2017 CHEM 14 4576106 POTASSIUM 3.9 mmol/L 02/28/2017 CHEM 14 9021846 TOTAL PROTEIN 6.6 g/dL 02/28/2017 CHEM 14 3061218 GLUCOSE 146 mg/dL 02/28/2017 CHEM 14 6373271 Bicarbonate 30 mmol/L 02/28/2017 CHEM 14 1218373 AGAP 9 mmol/L 02/28/2017 CHEM 14 6384930 AST 16 U/L 08/21/2016 CHEM 14 9873251 ALT 14 U/L 08/21/2016 CHEM 14 7274153 BUN 14 mg/dL 08/21/2016 CHEM 14 0849772 ALBUMIN 4.1 g/dL 08/21/2016 CHEM 14 3072913 CHLORIDE 105 mmol/L 08/21/2016 CHEM 14 1893555 Bili Total 0.5 mg/dL 08/21/2016 CHEM 14 0677614 ALK PHOS 53 U/L 08/21/2016 CHEM 14 7116211 SODIUM 141 mmol/L 08/21/2016 CHEM 14 0437392 CREATININE 0.66 mg/dL 08/21/2016 CHEM 14 9861607 CALCIUM 9.3 mg/dL 08/21/2016 CHEM 14 1710717 POTASSIUM 4.0 mmol/L 08/21/2016 CHEM 14 3382136 TOTAL PROTEIN 6.6 g/dL 08/21/2016 CHEM 14 1334107 GLUCOSE 145 mg/dL 08/21/2016 CHEM 14 4274988 Bicarbonate 29 mmol/L 08/21/2016 CHEM 14 0008070 AGAP 7 mmol/L 08/21/2016 LIPID GRP CHOLESTEROL 211 mg/dL 08/21/2016 LIPID GRP Triglyceride 105 mg/dL 08/21/2016 LIPID GRP HDL CHOLESTEROL 45 mg/dL 08/21/2016 LIPID GRP Chol/HDL Ratio 4.69 ratio 08/21/2016 LIPID GRP NON-HDL Chol 166 mg/dL 08/21/2016 LIPID GRP LDL Cholesterol 145 mg/dL 08/21/2016 FREE T4 5338011 T4 Free 1.39 ng/dL 08/21/2016 CBC 3873073 WBC 6.8 10e9/L 08/21/2016 CBC 8627993 RBC 4.87 10e12/L 08/21/2016 CBC 7690888 HEMOGLOBIN 12.7 g/dL 08/21/2016 CBC 0347947 HEMATOCRIT 40.5 % 08/21/2016 CBC 4249497 MCV 83.2 fL 08/21/2016 CBC 3473728 MCH 26.1 pg 08/21/2016 CBC 9728732 MCHC 31.4 g/dL 08/21/2016 CBC 8276508 PLATELET COUNT 334 10e9/L 08/21/2016 CBC 8896403 Mean Plt Volume 10.5 fL 08/21/2016 CBC 9465872 Neut Auto 56.4 % 08/21/2016 CBC 4330083 Lymph Auto 23.5 % 08/21/2016 CBC 5189277 Towner Auto 9.7 % 08/21/2016 CBC 0116475 Eos Auto 9.5 % 08/21/2016 CBC 9372944 RDW 16.6 % 08/21/2016 CBC 9968242 Baso Auto 0.9 % 08/21/2016 CBC 2045079 Neutrophil Abs 3.84 10e9/L 08/21/2016 CBC 8887140 Lymphocyte Abs 1.60 10e9/L 08/21/2016 CBC 2450801 Monocyte Abs 0.66 10e9/L 08/21/2016 CBC 9496878 Eosinophil Abs 0.65 10e9/L 08/21/2016 CBC 0685892 Basophil Abs 0.06 10e9/L 08/21/2016 CBC 2640256 RDW-SD 49.7 fL 08/21/2016 MEAN GLUC 3422243 Calc Mean Gluc 166 mg/dL 08/21/2016 TSH 9379252 TSH 1.485 uIU/mL 08/21/2016 GFR CALC 6605857 GFR Non Afr Amr >60 mL/min 08/21/2016 GFR CALC 5615167 GFR Afr Amr >60 mL/min 08/21/2016 A1C HPLC 5010069 Hgb A1c 12023-7 7.4 % 08/21/2016 Cbc With Differential Ord2 WBC 6.53 [...] 25.4 pg 04/24/2016 Cbc With Differential Ord2 Towner% 10.9 % 04/24/2016 Cbc With Differential Ord2 [...] 1.49 K/ul 04/24/2016 Cbc With Differential Ord2 Towner ABS# 0.7 K/ul 04/24/2016 Cbc With Differential Ord2 Eos ABS# 0.7 K/ul 04/24/2016 Cbc With Differential Ord2 Baso ABS# 0.1 K/ul 04/24/2016 Comp Metabolic Gwt496 NA 138 mEq/L 04/24/2016 Comp Metabolic Xna622 K 4.3 mEq/L 04/24/2016 Comp Metabolic Ixn422 CL 103 mEq/L 04/24/2016 Comp Metabolic Qwy929 CO2 28.0 mEq/L 04/24/2016 Comp Metabolic Iod639 ANION GAP 11 04/24/2016 Comp Metabolic Sbu805 GLUCOSE 138 mg/dL 04/24/2016 Comp Metabolic Xwf108 Creat 0.6 mg/dL 04/24/2016 Comp Metabolic Ksg660 eGFR 98 ml/min/1.73m2 04/24/2016 Comp Metabolic Upa436 BUN 16 mg/dL 04/24/2016 Comp Metabolic Oow364 B/C Ratio 25.4 Ratio 04/24/2016 Comp Metabolic Gqo434 CALCIUM 9.2 mg/dL 04/24/2016 Comp Metabolic Prr833 ALK PHOS 55 U/L 04/24/2016 Comp Metabolic Kzg530 AST(SGOT) 16 U/L 04/24/2016 Comp Metabolic Dbb943 ALT(SGPT) 16 U/L 04/24/2016 Comp Metabolic Qsl874 BILI T 0.6 mg/dL 04/24/2016 Comp Metabolic Pde150 ALBUMIN 3.9 g/dL 04/24/2016 Comp Metabolic Qzh060 TPRO 6.1 g/dL 04/24/2016 Comp Metabolic Jut125 GLOB 2.2 g/dL 04/24/2016 Comp Metabolic Vai754 A/G Ratio 1.7 Ratio 04/24/2016 Comp Metabolic Qva336 Osmo 279 mOsmo 04/24/2016 Lipid Ord30 CHOL 208 mg/dL 04/24/2016 Lipid Ord30 HDL 42.0 mg/dl 04/24/2016 Lipid Ord30 TRIG 98 mg/dL 04/24/2016 Lipid Ord30 LDL 146 mg/dL 04/24/2016 Lipid Ord30 C/HDL 5.0 Ratio 04/24/2016 Tsh Ord6 hTSH II 0.82 uIU/mL 04/24/2016 Free T4 Txx023 FREE T4 1.17 ng/dL 04/24/2016 %Hba1C Fls792 % HbA1c 32509- 6 7.5 % 04/24/2016 %Hba1C Hgr342 Gluc Ave 169 mg/dL 04/24/2016 Digoxin Ord9 DIGOXIN 0.9 NG/ML 02/03/2016 %Hba1C Dex668 % HbA1c 05369- 6 7.5 % 12/07/2015 %Hba1C Rll907 Gluc Ave 169 mg/dL 12/07/2015 Cbc With Differential Ord2 WBC 7.43 [...] 25.5 pg 12/07/2015 Cbc With Differential Ord2 Towner% 9.3 % 12/07/2015 Cbc With Differential Ord2 [...] 1.23 K/ul 12/07/2015 Cbc With Differential Ord2 Towner ABS# 0.7 K/ul 12/07/2015 Cbc With Differential Ord2 Eos ABS# 0.3 K/ul 12/07/2015 Cbc With Differential Ord2 Baso ABS# 0.1 K/ul 12/07/2015 Free T4 Qry994 FREE T4 1.17 ng/dL 12/07/2015 Comp Metabolic Lrn926 NA 139 mEq/L 12/07/2015 Comp Metabolic Cyv114 K 4.3 mEq/L 12/07/2015 Comp Metabolic Kgc031 CL 101 mEq/L 12/07/2015 Comp Metabolic Cgm977 CO2 33.0 mEq/L 12/07/2015 Comp Metabolic Qoj057 ANION GAP 9 12/07/2015 Comp Metabolic Vhw145 GLUCOSE 159 mg/dL 12/07/2015 Comp Metabolic Qyz542 Creat 0.6 mg/dL 12/07/2015 Comp Metabolic Lqk384 eGFR 108 ml/min/1.73m2 12/07/2015 Comp Metabolic Bkv152 BUN 13 mg/dL 12/07/2015 Comp Metabolic Ebd462 B/C Ratio 22.4 Ratio 12/07/2015 Comp Metabolic Zra443 CALCIUM 9.0 mg/dL 12/07/2015 Comp Metabolic Tmt248 ALK PHOS 60 U/L 12/07/2015 Comp Metabolic Utx330 AST(SGOT) 16 U/L 12/07/2015 Comp Metabolic Wsf577 ALT(SGPT) 19 U/L 12/07/2015 Comp Metabolic Csn066 BILI T 0.6 mg/dL 12/07/2015 Comp Metabolic Tcu366 ALBUMIN 4.0 g/dL 12/07/2015 Comp Metabolic Lxk972 TPRO 6.0 g/dL 12/07/2015 Comp Metabolic Uxb205 GLOB 2.0 g/dL 12/07/2015 Comp Metabolic Xsd572 A/G Ratio 1.9 Ratio 12/07/2015 Comp Metabolic Vwl989 Osmo 281 mOsmo 12/07/2015 Tsh Ord6 hTSH II 0.90 uIU/mL 12/07/2015 Lipid Ord30 CHOL 196 mg/dL 12/07/2015 Lipid Ord30 HDL 41.0 mg/dl 12/07/2015 Lipid Ord30 TRIG 142 mg/dL 12/07/2015 Lipid Ord30 LDL 127 mg/dL 12/07/2015 Lipid Ord30 C/HDL 4.8 Ratio 12/07/2015 Cbc With Differential Ord2 WBC 5.8 [...] Ord6 hTSH II 1.10 uIU/mL 06/14/2015 %Hba1C Ese264 % HbA1c 07005- 6 6.8 % 06/14/2015 %Hba1C Irc879 Gluc Ave 148 mg/dL 06/14/2015 Free T4 Emh032 FREE T4 1.31 ng/dL 06/14/2015 CHEM 14 8326306 AST 14 U/L 12/07/2014 CHEM 14 4146712 ALT 12 IU/L 12/07/2014 CHEM 14 5085808 BUN 12 MG/DL 12/07/2014 CHEM 14 3222177 ALBUMIN 3.9 GM/DL 12/07/2014 CHEM 14 5089869 CHLORIDE 103 MMOL/L 12/07/2014 CHEM 14 6816081 BILI TOT 0.6 MG/DL 12/07/2014 CHEM 14 3460903 ALK PHOS 49 U/L 12/07/2014 CHEM 14 8972033 SODIUM 140 MMOL/L 12/07/2014 CHEM 14 9556570 CREATININE 0.57 MG/DL 12/07/2014 CHEM 14 8322297 CALCIUM 9.5 MG/DL 12/07/2014 CHEM 14 1343712 POTASSIUM 4.0 MMOL/L 12/07/2014 CHEM 14 0322477 PROT TOT 6.5 GM/DL 12/07/2014 CHEM 14 4296713 GLUCOSE 110 MG/DL 12/07/2014 CHEM 14 7820908 BICARB 29 MMOL/L 12/07/2014 CHEM 14 5463825 ANION GAP 8 MEQ/L 12/07/2014 CBC 8037699 WBC 6.4 10e9/L 12/07/2014 CBC 6785216 RBC 4.51 10e12/L 12/07/2014 CBC 6336444 HGB 12.2 g/dL 12/07/2014 CBC 7554367 HCT DET 39.0 % 12/07/2014 CBC 2297925 MCV 86.5 fL 12/07/2014 CBC 9031334 MCH 27.1 pg 12/07/2014 CBC 5782600 MCHC 31.3 g/dL 12/07/2014 CBC 9249495 PLT 325 10e9/L 12/07/2014 CBC 1907668 MPV 10.4 fL 12/07/2014 CBC 7171203 TIM % 62.0 % 12/07/2014 CBC 2915720 LY % 21.4 % 12/07/2014 CBC 3754577 MON % 9.5 % 12/07/2014 CBC 5921398 EOS % 6.3 % 12/07/2014 CBC 1439458 BASO % 0.8 % 12/07/2014 CBC 4593722 RDW 15.8 % 12/07/2014 CBC 3625524 ABS TIM 3.97 10e9/L 12/07/2014 CBC 6841949 ABS LYMPH 1.37 10e9/L 12/07/2014 CBC 2554325 ABS MONO 0.61 10e9/L 12/07/2014 CBC 2951517 ABS EOS 0.40 10e9/L 12/07/2014 CBC 8351740 ABS BASO 0.05 10e9/L 12/07/2014 CBC 1463262 RDW-SD 48.8 fL 12/07/2014 A1C HPLC 2351456 A1C HPLC 63097-8 6.4 % 12/07/2014 TSH 1336760 TSH 1.106 uIU/ML 12/07/2014 LIPID GRP HDL TEST 46 MG/DL 12/07/2014 LIPID GRP TRIG 119 MG/DL 12/07/2014 LIPID GRP TEST LDL 108 MG/DL 12/07/2014 LIPID GRP CHOL 178 MG/DL 12/07/2014 LIPID GRP RCHOL/HDL 3.87 RATIO 12/07/2014 LIPID GRP NON-HDL CH 132 MG/DL 12/07/2014 FREE T4 6676544 FREE T4 1.37 NG/DL 12/07/2014 GFR CALC 6015910 GFR AA >60 ML/MIN 12/07/2014 GFR CALC 8014111 GFR NON-AA >60 ML/MIN 12/07/2014 TSH 5326573 TSH 0.841 uIU/ML 11/04/2013 DIGOXIN 7057277 DIGOXIN 0.5 NG/ML 11/04/2013 CHEM 14 2895497 AST 17 U/L 11/04/2013 CHEM 14 3100447 ALT 16 IU/L 11/04/2013 CHEM 14 6894010 BUN 13 MG/DL 11/04/2013 CHEM 14 9907167 ALBUMIN 4.3 GM/DL 11/04/2013 CHEM 14 0872985 CHLORIDE 104 MMOL/L 11/04/2013 CHEM 14 0585942 BILI TOT 0.7 MG/DL 11/04/2013 CHEM 14 9355842 ALK PHOS 67 U/L 11/04/2013 CHEM 14 3390310 SODIUM 140 MMOL/L 11/04/2013 CHEM 14 9839743 CREATININE 0.64 MG/DL 11/04/2013 CHEM 14 2913161 CALCIUM 9.5 MG/DL 11/04/2013 CHEM 14 5276240 POTASSIUM 4.0 MMOL/L 11/04/2013 CHEM 14 1998344 PROT TOT 6.1 GM/DL 11/04/2013 CHEM 14 1264039 GLUCOSE 157 MG/DL 11/04/2013 CHEM 14 7623871 BICARB 27 MMOL/L 11/04/2013 CHEM 14 3613639 ANION GAP 9 MEQ/L 11/04/2013 FREE T4 8383711 FREE T4 1.44 NG/DL 11/04/2013 GFR CALC 1170798 GFR AA >60 ML/MIN 11/04/2013 GFR CALC 9777457 GFR NON-AA >60 ML/MIN 11/04/2013 A1C HPLC 7946766 A1C HPLC 60889-3 7.2 % 11/04/2013 LIPID GRP HDL TEST 45 MG/DL 11/04/2013 LIPID GRP TRIG 104 MG/DL 11/04/2013 LIPID GRP TEST LDL 82 MG/DL 11/04/2013 LIPID GRP CHOL 148 MG/DL 11/04/2013 LIPID GRP RCHOL/HDL 3.29 RATIO 11/04/2013 CBC 2972014 WBC 6.2 10e9/L 11/04/2013 CBC 3953008 RBC 4.38 10e12/L 11/04/2013 CBC 0001143 HGB 11.8 g/dL 11/04/2013 CBC 2452185 HCT DET 37.5 % 11/04/2013 CBC 6736311 MCV 85.6 fL 11/04/2013 CBC 4361551 MCH 26.9 pg 11/04/2013 CBC 1771836 MCHC 31.5 g/dL 11/04/2013 CBC 3146489 PLT 330 10e9/L 11/04/2013 CBC 0807031 MPV 10.6 fL 11/04/2013 CBC 0240930 TIM % 60.8 % 11/04/2013 CBC 6543433 LY % 22.1 % 11/04/2013 CBC 0069688 MON % 9.6 % 11/04/2013 CBC 7679648 EOS % 6.4 % 11/04/2013 CBC 1650036 BASO % 1.1 % 11/04/2013 CBC 7669578 RDW 15.6 % 11/04/2013 CBC 1138137 ABS TIM 3.77 10e9/L 11/04/2013 CBC 3762225 ABS LYMPH 1.37 10e9/L 11/04/2013 CBC 8419992 ABS MONO 0.60 10e9/L 11/04/2013 CBC 1534410 ABS EOS 0.40 10e9/L 11/04/2013 CBC 2875921 ABS BASO 0.07 10e9/L 11/04/2013 CBC 7852624 RDW-SD 48.0 fL 11/04/2013 GFR CALC 5068698 GFR AA >60 ML/MIN 07/28/2013 GFR CALC 2927569 GFR NON-AA >60 ML/MIN 07/28/2013 CHEM 14 7994064 AST 20 U/L 07/28/2013 CHEM 14 1375224 ALT 19 IU/L 07/28/2013 CHEM 14 1340724 BUN 13 MG/DL 07/28/2013 CHEM 14 0883400 ALBUMIN 4.1 GM/DL 07/28/2013 CHEM 14 6293345 CHLORIDE 102 MMOL/L 07/28/2013 CHEM 14 9964271 BILI TOT 0.7 MG/DL 07/28/2013 CHEM 14 2401424 ALK PHOS 62 U/L 07/28/2013 CHEM 14 4346591 SODIUM 139 MMOL/L 07/28/2013 CHEM 14 3938057 CREATININE 0.66 MG/DL 07/28/2013 CHEM 14 9073438 CALCIUM 9.3 MG/DL 07/28/2013 CHEM 14 9559896 POTASSIUM 4.4 MMOL/L 07/28/2013 CHEM 14 2248306 PROT TOT 6.2 GM/DL 07/28/2013 CHEM 14 5838392 GLUCOSE 160 MG/DL 07/28/2013 CHEM 14 7982395 BICARB 29 MMOL/L 07/28/2013 CHEM 14 9039341 ANION GAP 8 MEQ/L 07/28/2013 DIGOXIN 4878947 DIGOXIN 0.4 NG/ML 07/28/2013 CBC 6400673 WBC 7.2 10e9/L 07/28/2013 CBC 8546710 RBC 4.65 10e12/L 07/28/2013 CBC 6744661 HGB 12.6 g/dL 07/28/2013 CBC 8496705 HCT DET 39.6 % 07/28/2013 CBC 9655531 MCV 85.2 fL 07/28/2013 CBC 6039577 MCH 27.1 pg 07/28/2013 CBC 0364615 MCHC 31.8 g/dL 07/28/2013 CBC 1542047 PLT 344 10e9/L 07/28/2013 CBC 8983223 MPV 10.7 fL 07/28/2013 CBC 2028073 TIM % 61.4 % 07/28/2013 CBC 7195519 LY % 22.4 % 07/28/2013 CBC 0379655 MON % 8.4 % 07/28/2013 CBC 5603910 EOS % 6.8 % 07/28/2013 CBC 5337966 BASO % 1.0 % 07/28/2013 CBC 0090202 RDW 15.5 % 07/28/2013 CBC 0856152 ABS TIM 4.42 10e9/L 07/28/2013 CBC 0673924 ABS LYMPH 1.61 10e9/L 07/28/2013 CBC 2543987 ABS MONO 0.60 10e9/L 07/28/2013 CBC 9468230 ABS EOS 0.49 10e9/L 07/28/2013 CBC 5012321 ABS BASO 0.07 10e9/L 07/28/2013 CBC 1178235 RDW-SD 47.2 fL 07/28/2013 A1C HPLC 6810147 A1C HPLC 16808-6 7.6 % 07/28/2013 LIPID GRP HDL TEST 38 MG/DL 07/28/2013 LIPID GRP TRIG 137 MG/DL 07/28/2013 LIPID GRP TEST LDL 73 MG/DL 07/28/2013 LIPID GRP CHOL 138 MG/DL 07/28/2013 LIPID GRP RCHOL/HDL 3.63 RATIO 07/28/2013 LIVER PNL 1200077 BILI DIR 0.2 MG/DL 07/28/2013 DIGOXIN 2382028 DIGOXIN 0.6 NG/ML 05/12/2013 A1C 7540019 A1C HPLC 99632- 6 7.5 % 04/29/2013 TSH 4912894 TSH 1.161 uIU/ML 04/29/2013 CHEM 14 4033629 AST 14 U/L 04/29/2013 CHEM 14 4507902 ALT 14 IU/L 04/29/2013 CHEM 14 6970077 BUN 13 MG/DL 04/29/2013 CHEM 14 7546128 ALBUMIN 4.1 GM/DL 04/29/2013 CHEM 14 4280672 CHLORIDE 102 MMOL/L 04/29/2013 CHEM 14 1979709 BILI TOT 0.7 MG/DL 04/29/2013 CHEM 14 3829785 ALK PHOS 75 U/L 04/29/2013 CHEM 14 7769336 SODIUM 139 MMOL/L 04/29/2013 CHEM 14 4214566 CREATININE 0.62 MG/DL 04/29/2013 CHEM 14 0286157 CALCIUM 9.3 MG/DL 04/29/2013 CHEM 14 6741400 POTASSIUM 4.0 MMOL/L 04/29/2013 CHEM 14 9703902 PROT TOT 6.5 GM/DL 04/29/2013 CHEM 14 9597440 GLUCOSE 152 MG/DL 04/29/2013 CHEM 14 8904776 BICARB 31 MMOL/L 04/29/2013 CHEM 14 5950198 ANION GAP 6 MEQ/L 04/29/2013 GFR CALC 9008608 GFR AA >60 ML/MIN 04/29/2013 GFR CALC 3220760 GFR NON-AA >60 ML/MIN 04/29/2013 CBC 3473803 WBC 7.4 10e9/L 04/29/2013 CBC 7646248 RBC 4.70 10e12/L 04/29/2013 CBC 7889113 HGB 12.8 g/dL 04/29/2013 CBC 0497057 HCT DET 40.1 % 04/29/2013 CBC 2993246 MCV 85.3 fL 04/29/2013 CBC 3700984 MCH 27.2 pg 04/29/2013 CBC 7760081 MCHC 31.9 g/dL 04/29/2013 CBC 1418120 PLT 312 10e9/L 04/29/2013 CBC 3168612 MPV 10.4 fL 04/29/2013 CBC 1352290 TIM % 64.9 % 04/29/2013 CBC 6338440 LY % 20.0 % 04/29/2013 CBC 9194670 MON % 8.6 % 04/29/2013 CBC 0921794 EOS % 5.3 % 04/29/2013 CBC 9269942 BASO % 1.2 % 04/29/2013 CBC 8094282 RDW 15.4 % 04/29/2013 CBC 7326003 ABS TIM 4.80 10e9/L 04/29/2013 CBC 6180570 ABS LYMPH 1.48 10e9/L 04/29/2013 CBC 8636772 ABS MONO 0.64 10e9/L 04/29/2013 CBC 5182148 ABS EOS 0.39 10e9/L 04/29/2013 CBC 9335503 ABS BASO 0.09 10e9/L 04/29/2013 CBC 7918992 RDW-SD 47.3 fL 04/29/2013 LIPID GRP HDL TEST 43 MG/DL 04/29/2013 LIPID GRP TRIG 111 MG/DL 04/29/2013 LIPID GRP TEST LDL 65 MG/DL 04/29/2013 LIPID GRP CHOL 130 MG/DL 04/29/2013 LIPID GRP RCHOL/HDL 3.02 RATIO 04/29/2013 A1C 5955321 A1C HPLC 60004- 6 7.2 % 12/28/2012 TSH 9306992 TSH 1.406 uIU/ML 12/28/2012 LIPID GRP 2999345 HDL TEST 54 MG/DL 12/27/2012 LIPID GRP TRIG 94 MG/DL 12/27/2012 LIPID GRP TEST LDL 42 MG/DL 12/27/2012 LIPID GRP CHOL 115 MG/DL 12/27/2012 LIPID GRP RCHOL/HDL 2.13 RATIO 12/27/2012 CBC 2172957 WBC 6.8 10e9/L 12/27/2012 CBC 4090413 RBC 4.72 10e12/L 12/27/2012 CBC 4853156 HGB 12.5 g/dL 12/27/2012 CBC 5297248 HCT DET 39.6 % 12/27/2012 CBC 8585217 MCV 83.9 fL 12/27/2012 CBC 1665203 MCH 26.5 pg 12/27/2012 CBC 4612712 MCHC 31.6 g/dL 12/27/2012 CBC 6752339 PLT 336 10e9/L 12/27/2012 CBC 3346629 MPV 10.4 fL 12/27/2012 CBC 5561838 TIM % 60.7 % 12/27/2012 CBC 0376996 LY % 24.6 % 12/27/2012 CBC 8414854 MON % 8.4 % 12/27/2012 CBC 8253752 EOS % 5.3 % 12/27/2012 CBC 1919280 BASO % 1.0 % 12/27/2012 CBC 2044950 RDW 16.6 % 12/27/2012 CBC 2926767 ABS TIM 4.13 10e9/L 12/27/2012 CBC 7577481 ABS LYMPH 1.67 10e9/L 12/27/2012 CBC 2345286 ABS MONO 0.57 10e9/L 12/27/2012 CBC 0252835 ABS EOS 0.36 10e9/L 12/27/2012 CBC 7648948 ABS BASO 0.07 10e9/L 12/27/2012 CBC 6765003 RDW-SD 50.1 fL 12/27/2012 CHEM 14 7716053 AST 14 U/L 12/27/2012 CHEM 14 6961039 ALT 13 IU/L 12/27/2012 CHEM 14 4457530 BUN 13 MG/DL 12/27/2012 CHEM 14 8671996 ALBUMIN 4.5 GM/DL 12/27/2012 CHEM 14 8060990 CHLORIDE 105 MMOL/L 12/27/2012 CHEM 14 4295499 BILI TOT 0.8 MG/DL 12/27/2012 CHEM 14 3008752 ALK PHOS 69 U/L 12/27/2012 CHEM 14 5307170 SODIUM 142 MMOL/L 12/27/2012 CHEM 14 6386811 CREATININE 0.73 MG/DL 12/27/2012 CHEM 14 7939945 CALCIUM 9.7 MG/DL 12/27/2012 CHEM 14 8392302 POTASSIUM 4.1 MMOL/L 12/27/2012 CHEM 14 3272618 PROT TOT 6.8 GM/DL 12/27/2012 CHEM 14 6786944 GLUCOSE 133 MG/DL 12/27/2012 CHEM 14 6790602 BICARB 30 MMOL/L 12/27/2012 CHEM 14 7691964 ANION GAP 7 MEQ/L 12/27/2012 GFR CALC 6297090 GFR AA >60 ML/MIN 12/27/2012 GFR CALC 9410834 GFR NON-AA >60 ML/MIN 12/27/2012 FREE T4 7783286 FREE T4 1.36 NG/DL 08/27/2012 A1C HPLC 8824295 A1C HPLC 02587-7 7.3 % 08/27/2012 LIPID GRP HDL TEST 41 MG/DL 08/27/2012 LIPID GRP TRIG 120 MG/DL 08/27/2012 LIPID GRP TEST LDL 67 MG/DL 08/27/2012 LIPID GRP CHOL 132 MG/DL 08/27/2012 LIPID GRP RCHOL/HDL 3.22 RATIO 08/27/2012 TSH 6739297 TSH 0.933 uIU/ML 08/27/2012 GFR CALC 4750966 GFR AA >60 ML/MIN 08/27/2012 GFR CALC 8182224 GFR NON-AA >60 ML/MIN 08/27/2012 CHEM 14 8203693 AST 15 U/L 08/27/2012 CHEM 14 2771682 ALT 17 IU/L 08/27/2012 CHEM 14 6390734 BUN 14 MG/DL 08/27/2012 CHEM 14 5470773 ALBUMIN 4.2 GM/DL 08/27/2012 CHEM 14 7381058 CHLORIDE 103 MMOL/L 08/27/2012 CHEM 14 5829635 BILI TOT 0.6 MG/DL 08/27/2012 CHEM 14 8852784 ALK PHOS 86 U/L 08/27/2012 CHEM 14 9072050 SODIUM 141 MMOL/L 08/27/2012 CHEM 14 6938826 CREATININE 0.64 MG/DL 08/27/2012 CHEM 14 9244986 CALCIUM 9.5 MG/DL 08/27/2012 CHEM 14 2088379 POTASSIUM 4.1 MMOL/L 08/27/2012 CHEM 14 4916918 PROT TOT 6.1 GM/DL 08/27/2012 CHEM 14 2645915 GLUCOSE 151 MG/DL 08/27/2012 CHEM 14 0555821 BICARB 30 MMOL/L 08/27/2012 CHEM 14 8458593 ANION GAP 8 MEQ/L 08/27/2012 CBC 1173234 WBC 7.8 10e9/L 08/27/2012 CBC 1621963 RBC 4.54 10e12/L 08/27/2012 CBC 1723602 HGB 12.0 g/dL 08/27/2012 CBC 0372975 HCT DET 37.9 % 08/27/2012 CBC 6184368 MCV 83.5 fL 08/27/2012 CBC 1019167 MCH 26.4 pg 08/27/2012 CBC 1496911 MCHC 31.7 g/dL 08/27/2012 CBC 0234489 PLT 370 10e9/L 08/27/2012 CBC 3251159 MPV 10.7 fL 08/27/2012 CBC 9511130 TIM % 65.7 % 08/27/2012 CBC 2121694 LY % 19.5 % 08/27/2012 CBC 5662002 MON % 9.0 % 08/27/2012 CBC 1855640 EOS % 5.0 % 08/27/2012 CBC 9748874 BASO % 0.8 % 08/27/2012 CBC 6578695 RDW 15.4 % 08/27/2012 CBC 7778237 ABS TIM 5.12 10e9/L 08/27/2012 CBC 6401858 ABS LYMPH 1.52 10e9/L 08/27/2012 CBC 9965634 ABS MONO 0.70 10e9/L 08/27/2012 CBC 6926437 ABS EOS 0.39 10e9/L 08/27/2012 CBC 5697346 ABS BASO 0.06 10e9/L 08/27/2012 CBC 2035768 RDW-SD 46.3 fL 08/27/2012 DIGOXIN 0813616 DIGOXIN 1.4 NG/ML 07/15/2012 CBC 5073376 WBC 6.3 10e9/L 07/15/2012 CBC 4709649 RBC 4.44 10e12/L 07/15/2012 CBC 2210308 HGB 11.8 g/dL 07/15/2012 CBC 7904675 HCT DET 36.9 % 07/15/2012 CBC 0966572 MCV 83.1 fL 07/15/2012 CBC 4031473 MCH 26.6 pg 07/15/2012 CBC 3854641 MCHC 32.0 g/dL 07/15/2012 CBC 5501953 PLT 316 10e9/L 07/15/2012 CBC 2768177 MPV 10.3 fL 07/15/2012 CBC 2666582 TIM % 64.4 % 07/15/2012 CBC 3927141 LY % 19.6 % 07/15/2012 CBC 5796414 MON % 9.1 % 07/15/2012 CBC 8176563 EOS % 6.1 % 07/15/2012 CBC 9045834 BASO % 0.8 % 07/15/2012 CBC 7484672 RDW 15.3 % 07/15/2012 CBC 2349854 ABS TIM 4.06 10e9/L 07/15/2012 CBC 4553348 ABS LYMPH 1.23 10e9/L 07/15/2012 CBC 3789289 ABS MONO 0.57 10e9/L 07/15/2012 CBC 2766608 ABS EOS 0.38 10e9/L 07/15/2012 CBC 5601284 ABS BASO 0.05 10e9/L 07/15/2012 CBC 3480436 RDW-SD 46.2 fL 07/15/2012 CBC 5237737 WBC 6.9 10e9/L 07/04/2012 CBC 0304335 RBC 4.56 10e12/L 07/04/2012 CBC 6740656 HGB 12.2 g/dL 07/04/2012 CBC 1060188 HCT DET 38.1 % 07/04/2012 CBC 1884774 MCV 83.6 fL 07/04/2012 CBC 3764451 MCH 26.8 pg 07/04/2012 CBC 5359253 MCHC 32.0 g/dL 07/04/2012 CBC 9059517 PLT 382 10e9/L 07/04/2012 CBC 5342327 MPV 10.6 fL 07/04/2012 CBC 0555536 TIM % 58.7 % 07/04/2012 CBC 9639491 LY % 23.7 % 07/04/2012 CBC 7321022 MON % 10.2 % 07/04/2012 CBC 7829268 EOS % 6.4 % 07/04/2012 CBC 5823592 BASO % 1.0 % 07/04/2012 CBC 3149769 RDW 15.8 % 07/04/2012 CBC 1591734 ABS TIM 4.05 10e9/L 07/04/2012 CBC 4078804 ABS LYMPH 1.64 10e9/L 07/04/2012 CBC 8841367 ABS MONO 0.70 10e9/L 07/04/2012 CBC 7235813 ABS EOS 0.44 10e9/L 07/04/2012 CBC 0614124 ABS BASO 0.07 10e9/L 07/04/2012 CBC 8066660 RDW-SD 47.5 fL 07/04/2012 GFR CALC 6440224 GFR AA >60 ML/MIN 07/04/2012 GFR CALC 0406644 GFR NON-AA >60 ML/MIN 07/04/2012 BMP 6031022 GLUCOSE 137 MG/DL 07/04/2012 BMP 3358076 CREATININE 0.86 MG/DL 07/04/2012 BMP 4820944 BUN 14 MG/DL 07/04/2012 BMP 2225428 SODIUM 140 MMOL/L 07/04/2012 BMP 7568915 POTASSIUM 4.5 MMOL/L 07/04/2012 BMP 9597472 CHLORIDE 103 MMOL/L 07/04/2012 BMP 7602630 BICARB 28 MMOL/L 07/04/2012 BMP 5488112 ANION GAP 9 MEQ/L 07/04/2012 BMP 7302541 CALCIUM 9.7 MG/DL 07/04/2012 DIGOXIN 2002474 DIGOXIN 1.4 NG/ML 07/04/2012 A1C HPLC 3650252 A1C HPLC 99641-6 7.1 % 03/27/2012 TSH 5498569 TSH 0.842 uIU/ML 03/26/2012 FREE T4 3469195 FREE T4 1.30 NG/DL 03/26/2012 GFR CALC 3339824 GFR AA >60 ML/MIN 03/26/2012 GFR CALC 1447951 GFR NON-AA >60 ML/MIN 03/26/2012 CBC 8021905 WBC 5.3 10e9/L 03/26/2012 CBC 0981208 RBC 4.70 10e12/L 03/26/2012 CBC 2843421 HGB 12.1 g/dL 03/26/2012 CBC 7655147 HCT DET 38.1 % 03/26/2012 CBC 4754287 MCV 81.1 fL 03/26/2012 CBC 8118778 MCH 25.7 pg 03/26/2012 CBC 0911895 MCHC 31.8 g/dL 03/26/2012 CBC 8093879 PLT 315 10e9/L 03/26/2012 CBC 2841672 MPV 10.9 fL 03/26/2012 CBC 7629015 TIM % 54.8 % 03/26/2012 CBC 0520302 LY % 25.8 % 03/26/2012 CBC 7366718 MON % 11.6 % 03/26/2012 CBC 8847130 EOS % 7.0 % 03/26/2012 CBC 9352976 BASO % 0.8 % 03/26/2012 CBC 7507491 RDW 16.7 % 03/26/2012 CBC 1128437 ABS TIM 2.90 10e9/L 03/26/2012 CBC 2583855 ABS LYMPH 1.37 10e9/L 03/26/2012 CBC 0424464 ABS MONO 0.61 10e9/L 03/26/2012 CBC 4969610 ABS EOS 0.37 10e9/L 03/26/2012 CBC 7102880 ABS BASO 0.04 10e9/L 03/26/2012 CBC 5442509 RDW-SD 48.8 fL 03/26/2012 LIPID GRP HDL TEST 40 MG/DL 03/26/2012 LIPID GRP TRIG 93 MG/DL 03/26/2012 LIPID GRP TEST LDL 62 MG/DL 03/26/2012 LIPID GRP CHOL 121 MG/DL 03/26/2012 LIPID GRP RCHOL/HDL 3.03 RATIO 03/26/2012 CHEM 14 2903715 AST 18 U/L 03/26/2012 CHEM 14 3994459 ALT 17 IU/L 03/26/2012 CHEM 14 5556416 BUN 16 MG/DL 03/26/2012 CHEM 14 7688908 ALBUMIN 4.3 GM/DL 03/26/2012 CHEM 14 3330666 CHLORIDE 103 MMOL/L 03/26/2012 CHEM 14 3096499 BILI TOT 0.9 MG/DL 03/26/2012 CHEM 14 3507219 ALK PHOS 79 U/L 03/26/2012 CHEM 14 8765856 SODIUM 140 MMOL/L 03/26/2012 CHEM 14 6157830 CREATININE 0.70 MG/DL 03/26/2012 CHEM 14 7013603 CALCIUM 9.6 MG/DL 03/26/2012 CHEM 14 5215968 POTASSIUM 4.1 MMOL/L 03/26/2012 CHEM 14 7375680 PROT TOT 6.3 GM/DL 03/26/2012 CHEM 14 6750942 GLUCOSE 142 MG/DL 03/26/2012 CHEM 14 2736294 BICARB 29 MMOL/L 03/26/2012 CHEM 14 1997473 ANION GAP 8 MEQ/L 03/26/2012 CHEM 14 9580016 AST 24 U/L 01/08/2012 CHEM 14 4377825 ALT 28 IU/L 01/08/2012 CHEM 14 9537328 BUN 15 MG/DL 01/08/2012 CHEM 14 7274061 ALBUMIN 4.3 GM/DL 01/08/2012 CHEM 14 9042111 CHLORIDE 104 MMOL/L 01/08/2012 CHEM 14 3342504 BILI TOT 0.6 MG/DL 01/08/2012 CHEM 14 1603378 ALK PHOS 83 U/L 01/08/2012 CHEM 14 7696413 SODIUM 141 MMOL/L 01/08/2012 CHEM 14 2666513 CREATININE 0.64 MG/DL 01/08/2012 CHEM 14 5132342 CALCIUM 9.4 MG/DL 01/08/2012 CHEM 14 7858706 POTASSIUM 4.0 MMOL/L 01/08/2012 CHEM 14 3475083 PROT TOT 6.7 GM/DL 01/08/2012 CHEM 14 9345048 GLUCOSE 145 MG/DL 01/08/2012 CHEM 14 0086462 BICARB 28 MMOL/L 01/08/2012 CHEM 14 9217450 ANION GAP 9 MEQ/L 01/08/2012 CBC 0549018 WBC 5.8 10e9/L 01/08/2012 CBC 6705963 RBC 4.36 10e12/L 01/08/2012 CBC 8758748 HGB 11.6 g/dL 01/08/2012 CBC 0221797 HCT DET 37.4 % 01/08/2012 CBC 2314784 MCV 85.8 fL 01/08/2012 CBC 0366505 MCH 26.6 pg 01/08/2012 CBC 9361318 MCHC 31.0 g/dL 01/08/2012 CBC 7781419 PLT 319 10e9/L 01/08/2012 CBC 1182431 MPV 10.5 fL 01/08/2012 CBC 1053476 TIM % 62.2 % 01/08/2012 CBC 9191741 LY % 20.7 % 01/08/2012 CBC 4653680 MON % 9.3 % 01/08/2012 CBC 3309784 EOS % 6.4 % 01/08/2012 CBC 6144780 BASO % 1.4 % 01/08/2012 CBC 5942797 RDW 14.9 % 01/08/2012 CBC 5446612 ABS TIM 3.61 10e9/L 01/08/2012 CBC 9390103 ABS LYMPH 1.20 10e9/L 01/08/2012 CBC 2677816 ABS MONO 0.54 10e9/L 01/08/2012 CBC 2753142 ABS EOS 0.37 10e9/L 01/08/2012 CBC 4975795 ABS BASO 0.08 10e9/L 01/08/2012 CBC 7724065 RDW-SD 44.9 fL 01/08/2012 GFR CALC 2815809 GFR AA >60 ML/MIN 01/08/2012 GFR CALC 5459929 GFR NON-AA >60 ML/MIN 01/08/2012 A1C HPLC 3985114 A1C HPLC 56308-0 7.2 % 01/08/2012 LIPID GRP HDL TEST 42 MG/DL 01/08/2012 LIPID GRP TRIG 105 MG/DL 01/08/2012 LIPID GRP TEST LDL 51 MG/DL 01/08/2012 LIPID GRP CHOL 114 MG/DL 01/08/2012 LIPID GRP RCHOL/HDL 2.71 RATIO 01/08/2012 Review of Systems System Result Effective Dates Constitutional No recent illness 05/27/2018 Constitutional No [...] unsteadiness 07/15/2012 None Full Exam - General 1994 Psychiatric orientation/consciousness Overall: oriented to person, place and time 07/15/2012 None Full Exam - General 1994 Psychiatric [...] 07/15/2012 None Full Exam - General 1995 Respiratory auscultation Overall: breath sounds clear bilaterally 07/15/2012 None Full Exam - General 1994 Respiratory respiratory effort/rhythm Overall: no retractions 07/15/2012 None Full Exam - General 1995 Respiratory respiratory effort/rhythm Overall: normal rate 07/15/2012 [...] clear 05/02/2012 None Full Exam - General 1995 [...] 1995 Abdomen abdominal exam Overall: no tenderness 10/25/2011 [...] time 10/25/2011 None Full Exam - General 1995 [...] clear 05/05/2011 None Procedures Procedure Codes Date URINALYSIS NONAUTO W/O SCOPE CPT-4: 00244 12/31/2017 OCCULT BLOOD FECES CPT- 4: 45530 11/28/2017 TRIAMCINOLONE ACET INJ NOS CPT-4: J3301 10/30/2017 REMOVAL OF IMPACTED WAX CPT-4: G0268 05/29/2017 THER/PROPH/DIAG INJ SC/IM CPT-4: 59581 05/14/2017 KETOROLAC TROMETHAMINE INJ CPT-4: J1885 05/14/2017 ADMIN INFLUENZA VIRUS VAC CPT-4: G0008 04/30/2017 FLU VACC PRSV FREE INC ANTIG CPT-4: 29362 04/30/2017 THER/PROPH/DIAG INJ SC/IM CPT-4: 68024 03/06/2017 TRIAMCINOLONE ACET INJ NOS CPT-4: J3301 03/06/2017 THER/PROPH/DIAG INJ SC/IM CPT-4: 97473 09/04/2016 TRIAMCINOLONE ACET INJ NOS CPT-4: J3301 09/04/2016 THER/PROPH/DIAG INJ SC/IM CPT-4: 18796 11/11/2015 TRIAMCINOLONE ACET INJ NOS CPT-4: J3301 11/11/2015 TRIAMCINOLONE ACET INJ NOS CPT-4: J3301 10/25/2015 THER/PROPH/DIAG INJ SC/IM CPT-4: 30483 10/25/2015 THER/PROPH/DIAG INJ SC/IM CPT-4: 38524 08/17/2014 TRIAMCINOLONE ACET INJ NOS CPT-4: J3301 08/17/2014 TRIAMCINOLONE ACET INJ NOS CPT-4: J3301 04/13/2014 THER/PROPH/DIAG INJ SC/IM CPT-4: 17180 04/13/2014 ROUTINE VENIPUNCTURE CPT- 4: 53638 11/04/2013 ROUTINE VENIPUNCTURE CPT- 4: 16044 05/12/2013 ADMIN INFLUENZA VIRUS VAC CPT-4: G0008 05/12/2013 FLULAVAL VACC, 3 YRS & >, IM CPT-4: Q2036 05/12/2013 TRIAMCINOLONE ACET INJ NOS CPT-4: J3301 10/07/2012 THER/PROPH/DIAG INJ SC/IM CPT-4: 63488 10/07/2012 ROUTINE VENIPUNCTURE CPT- 4: 10365 08/27/2012 ROUTINE VENIPUNCTURE CPT- 4: 33367 07/15/2012 ROUTINE VENIPUNCTURE CPT- 4: 97941 03/26/2012 ADMIN INFLUENZA VIRUS VAC CPT-4: G0008 03/26/2012 FLULAVAL VACC, 3 YRS & >, IM CPT-4: Q2036 03/26/2012 Pneumococcal Polysaccharide Vaccine, 23-Valent, Ad CPT-4: 14869 03/26/2012 ROUTINE VENIPUNCTURE CPT- 4: 14580 01/08/2012 ROUTINE VENIPUNCTURE CPT- 4: 04578 11/06/2011 ROUTINE VENIPUNCTURE CPT- 4: 69739 10/25/2011 ROUTINE VENIPUNCTURE CPT- 4: 73874 10/16/2011 ROUTINE VENIPUNCTURE CPT- 4: 19488 09/25/2011 INJ TRIGGER POINT 1/2 MUSCL CPT-4: 70158 07/31/2011 TRIAMCINOLONE ACET INJ NOS CPT-4: J3301 07/31/2011 PRESCRIP TRANSMIT VIA ERX SY CPT-4: G8553 05/22/2011 ADMIN INFLUENZA VIRUS VAC CPT-4: G0008 05/02/2011 FLULAVAL VACC, 3 YRS & >, IM CPT-4: Q2036 05/02/2011 ROUTINE VENIPUNCTURE CPT- 4: 20510 05/02/2011 Vital Signs Date Vital 05/27/2018 Blood Pressure 1: 128/76 Code: 8480-6 BMI: 28.9 Code: 87839-4 Heart Rate 1: 74 bpm Height: 5'1" SpO2: 99% Weight: 153 lbs 01/21/2018 Blood Pressure 1: 132/78 Code: 8480-6 BMI: 28.7 Code: 01989-7 Heart Rate 1: 112 bpm Height: 5'1" SpO2: 98% Weight: 152 lbs 12/04/2017 Blood Pressure 1: 140/74 Code: 8480-6 BMI: 27.6 Code: 88471-0 Heart Rate 1: 76 bpm Height: 5'1" SpO2: 97% Weight: 146 lbs 11/13/2017 Blood Pressure 1: 166/78 Code: 8480-6 BMI: 27.4 Code: 87812-6 Heart Rate 1: 78 bpm Height: 5'1" SpO2: 98% Weight: 145 lbs 10/30/2017 Blood Pressure 1: 148/72 Code: 8480-6 BMI: 27.8 Code: 58393-9 Heart Rate 1: 92 bpm Height: 5'1" SpO2: 96% Weight: 147 lbs 09/20/2017 Blood Pressure 1: 146/68 Code: 8480-6 BMI: 28.2 Code: 57902-8 Heart Rate 1: 66 bpm Height: 5'1" SpO2: 99% Weight: 149 lbs 05/29/2017 Blood Pressure 1: 156/82 Code: 8480-6 BMI: 28.7 Code: 03722-8 Heart Rate 1: 71 bpm Height: 5'1" SpO2: 96% Weight: 152 lbs 05/14/2017 Blood Pressure 1: 150/88 Code: 8480-6 BMI: 28.5 Code: 04728-5 Heart Rate 1: 71 bpm Height: 5'1" SpO2: 98% Weight: 151 lbs 03/06/2017 Blood Pressure 1: 148/66 Code: 8480-6 BMI: 28.5 Code: 41732-5 Heart Rate 1: 78 bpm Height: 5'1" SpO2: 98% Weight: 151 lbs 11/01/2016 Blood Pressure 1: 150/84 Code: 8480-6 BMI: 29.1 Code: 72943-5 Heart Rate 1: 71 bpm Height: 5'1" SpO2: 97% Weight: 154 lbs 10/18/2016 Blood Pressure 1: 156/98 Code: 8480-6 Heart Rate 1: 68 bpm Height: 5'1" SpO2: 98% Weight: 10/12/2016 Blood Pressure 1: 142/76 Code: 8480-6 BMI: 30.0 Code: 02060-9 Heart Rate 1: 76 bpm Height: 5'1" SpO2: 95% Weight: 159 lbs 09/04/2016 Blood Pressure 1: 148/84 Code: 8480-6 Blood Pressure 1: 120/70 Code: 8480-6 BMI: 30.0 Code: 08900-7 Heart Rate 1: 72 bpm Height: 5'1" SpO2: 94% Weight: 159 lbs 05/30/2016 Blood Pressure 1: 152/84 Code: 8480-6 BMI: 29.9 Code: 12071-5 Heart Rate 1: 76 bpm Height: 5'1" SpO2: 97% Weight: 158 lbs 8 oz 05/01/2016 Blood Pressure 1: 146/60 Code: 8480-6 BMI: 29.9 Code: 98029-8 Heart Rate 1: 72 bpm Height: 5'1" SpO2: 97% Weight: 158 lbs 02/29/2016 Blood Pressure 1: 152/82 Code: 8480-6 BMI: 30.4 Code: 38440-9 Heart Rate 1: 71 bpm Height: 5'1" SpO2: 96% Weight: 161 lbs 02/03/2016 Blood Pressure 1: 148/88 Code: 8480-6 BMI: 30.6 Code: 80139-6 Heart Rate 1: 72 bpm Height: 5'1" SpO2: 98% Weight: 162 lbs 12/21/2015 Blood Pressure 1: 180/78 Code: 8480-6 BMI: 30.9 Code: 98824-9 Heart Rate 1: 64 bpm Height: 5'1" SpO2: 97% Weight: 163 lbs 8 oz 10/25/2015 Blood Pressure 1: 150/78 Code: 8480-6 BMI: 31.0 Code: 12342-3 Heart Rate 1: 73 bpm Height: 5'1" SpO2: 98% Weight: 164 lbs 10/19/2015 Blood Pressure 1: 122/72 Code: 8480-6 BMI: 31.6 Code: 92335-3 Heart Rate 1: 88 bpm Height: 5'1" SpO2: 98% Weight: 167 lbs 06/22/2015 Blood Pressure 1: 150/82 Code: 8480-6 BMI: 31.4 Code: 59175-2 Heart Rate 1: 86 bpm Height: 5'1" SpO2: 96% Weight: 166 lbs 12/22/2014 Blood Pressure 1: 160/92 Code: 8480-6 BMI: 31.2 Code: 42530-4 Heart Rate 1: 85 bpm Height: 5'1" SpO2: 97% Weight: 165 lbs 08/17/2014 Blood Pressure 1: 138/80 Code: 8480-6 BMI: 31.6 Code: 16112-1 Heart Rate 1: 77 bpm Height: 5'1" SpO2: 97% Weight: 167 lbs 04/13/2014 Blood Pressure 1: 144/88 Code: 8480-6 BMI: 31.6 Code: 31160-3 Heart Rate 1: 90 bpm Height: 5'1" Weight: 167 lbs 12/11/2013 Blood Pressure 1: 168/90 Code: 8480-6 BMI: 32.3 Code: 62179-7 Heart Rate 1: 72 bpm Height: 5'1" Weight: 171 lbs 11/10/2013 Blood Pressure 1: 150/80 Code: 8480-6 BMI: 32.3 Code: 68938-2 Heart Rate 1: 76 bpm Height: 5'1" Weight: 171 lbs 08/11/2013 Blood Pressure 1: 152/80 Code: 8480-6 BMI: 32.5 Code: 50837-7 Heart Rate 1: 92 bpm Height: 5'1" Temperature: 36.7 (C) / 98.0 (F) Weight: 172 lbs 05/12/2013 Blood Pressure 1: 142/102 Code: 8480-6 Blood Pressure 2: 144/98 Code: 8480-6 BMI: 34.2 Code: 98427-2 Heart Rate 1: 80 bpm Height: 5'1" Weight: 181 lbs 01/06/2013 Blood Pressure 1: 138/76 Code: 8480-6 BMI: 34.6 Code: 95280-8 Heart Rate 1: 64 bpm Height: 5'1" Weight: 183 lbs 10/07/2012 Blood Pressure 1: 146/76 Code: 8480-6 BMI: 35.6 Code: 21001-7 Heart Rate 1: 76 bpm Height: 5'1" Respiratory Rate: 20 bpm Weight: 188 lbs 8 oz 09/11/2012 Blood Pressure 1: 158/92 Code: 8480-6 BMI: 35.7 Code: 74152-3 Heart Rate 1: 76 bpm Height: 5'1" Weight: 189 lbs 07/15/2012 Blood Pressure 1: 158/100 Code: 8480-6 BMI: 36.3 Code: 44728-3 Heart Rate 1: 72 bpm Height: 5'1" Respiratory Rate: 20 bpm Weight: 192 lbs 05/02/2012 Blood Pressure 1: 156/80 Code: 8480-6 BMI: 35.9 Code: 70820-2 Heart Rate 1: 72 bpm Height: 5'1" Weight: 190 lbs 03/28/2012 Blood Pressure 1: 133/88 Code: 8480-6 Heart Rate 1: 78 bpm Weight: 189 lbs 11/27/2011 Blood Pressure 1: 178/80 Code: 8480-6 BMI: 36.7 Code: 77062-7 Heart Rate 1: 72 bpm Height: 5'1" Respiratory Rate: 20 bpm Weight: 194 lbs 10/25/2011 Blood Pressure 1: 122/62 Code: 8480-6 BMI: 37.0 Code: 71866-3 Heart Rate 1: 80 bpm Height: 5'1" [...] 2: / Code: 8480-6 BMI: 37.1 Code: 87925-9 Heart Rate 1: 72 bpm Height: 5'1" Respiratory Rate: 16 bpm SpO2: % Temperature: .0 (C) / 32.0 (F) Weight: 196 lbs 8 oz 05/22/2011 Blood Pressure 1: 147/71 Code: 8480-6 BMI: 18.7 Code: 62605-7 Heart Rate 1: 77 bpm Height: 7'1" Weight: 192 lbs 05/05/2011 Blood Pressure 1: 178/88 Code: 8480-6 BMI: 37.4 Code: 94480-6 Heart Rate 1: 80 bpm Height: 5' Respiratory Rate: 16 bpm Weight: 193 lbs Functional Status No Functional Status data History of Present Illness Symptom Name Status Result Effective Date Notes hypertension Quality primary hypertension 05/27/2018 None hypertension [...] Present Encounters Encounter Performer Location Codes Date ([id number]) 24999 EST. PATIENT, LEVEL IV Diagnosis: Type 2 diabetes mellitus with hyperglycemia[ICD10: E11.65] Diagnosis: Atrophy of thyroid (acquired)[ICD10: E03.4] [facility] CPT-4: 95158 05/27/2018 ([id number]) 23400 EST. PATIENT, LEVEL IV Diagnosis: Type 2 diabetes mellitus without complications[ICD10: E11.9] Diagnosis: Paroxysmal atrial fibrillation[ICD10: I48.0] Diagnosis: Essential (primary) hypertension[ICD10: I10] Clarice Elaine MD [facility] CPT-4: 88889 01/21/2018 ([id number]) 99520 EST. PATIENT, LEVEL III Diagnosis: Paroxysmal atrial fibrillation[ICD10: I48.0] Diagnosis: Other specified anemias[ICD10: D64.89] Clarice Elaine MD [facility] CPT-4: 91736 12/04/2017 ([id number]) 19683 EST. PATIENT, LEVEL IV Diagnosis: Benign paroxysmal vertigo, bilateral[ICD10: H81.13] Diagnosis: Essential (primary) hypertension[ICD10: I10] Diagnosis: Other fatigue[ICD10: R53.83] Diagnosis: Other specified anemias[ICD10: D64.89] Diagnosis: Other allergic rhinitis[ICD10: J30.89] Socorro Elaine MD, [facility] CPT-4: 56228 11/13/2017 ([id number]) 53170 EST. PATIENT, LEVEL III Diagnosis: Mild intermittent asthma with (acute) exacerbation[ICD10: J45.21] Diagnosis: Cough[ICD10: R05] Socorro Elaine MD [facility] CPT-4: 77681 10/30/2017 ([id number]) 02806 EST. PATIENT, LEVEL IV Diagnosis: Gastro-esophageal reflux disease without esophagitis[ICD10: K21.9] Diagnosis: Type 2 diabetes mellitus without complications[ICD10: E11.9] Diagnosis: Other specified anemias[ICD10: D64.89] Diagnosis: Paroxysmal atrial fibrillation[ICD10: I48.0] Socorro Elaine MD [facility] CPT-4: 21219 09/20/2017 ([id number]) 59215 EST. PATIENT, LEVEL III Diagnosis: Essential (primary) hypertension[ICD10: I10] Clarice Elaine MD, [facility] CPT-4: 09513 05/29/2017 ([id number]) 49237 EST. PATIENT, LEVEL III Diagnosis: Acute bronchitis due to other specified organisms[ICD10: J20.8] Diagnosis: Cough[ICD10: R05] Diagnosis: Other chest pain[ICD10: R07.89] Clarice Elaine MD [facility] CPT-4: 99565 05/14/2017 ([id number]) 74320 EST. PATIENT, LEVEL IV Diagnosis: Type 2 diabetes mellitus with hyperglycemia[ICD10: E11.65] Diagnosis: Essential (primary) hypertension[ICD10: I10] Diagnosis: Mild intermittent asthma with (acute) exacerbation[ICD10: J45.21] Clarice Elaine MD [facility] CPT-4: 22195 03/06/2017 ([id number]) 89848 EST. 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 PATIENT, LEVEL III Diagnosis: Mild intermittent asthma with (acute) exacerbation[ICD10: J45.21] Diagnosis: Gastro-esophageal reflux disease without esophagitis[ICD10: K21.9] Jayne Elaine MD [facility] CPT-4: 52997 10/12/2016 ([id number]) 70340 EST. PATIENT, LEVEL IV Diagnosis: Type 2 diabetes mellitus with hyperglycemia[ICD10: E11.65] Diagnosis: Essential (primary) hypertension[ICD10: I10] Diagnosis: Mild intermittent asthma with (acute) exacerbation[ICD10: J45.21] Clarice Elaine MD, [facility] CPT-4: 11311 09/04/2016 65598 EST. PATIENT, LEVEL III Diagnosis: Pain in left ankle and joints of left foot[ICD10: M25.572] Diagnosis: Localized edema[ICD10: R60.0] Jayne Elaine MD, [facility] CPT-4: 36575 05/30/2016 ([id number]) 18746 EST. PATIENT, LEVEL III Diagnosis: Type 2 diabetes mellitus with hyperglycemia[ICD10: E11.65] Clarice Elaine MD [facility] CPT-4: 41178 05/01/2016 ([id number]) 03223 EST. PATIENT, LEVEL IV Diagnosis: Type 2 diabetes mellitus without complications[ICD10: E11.9] Diagnosis: Moderate persistent asthma, uncomplicated[ICD10: J45.40] Diagnosis: Paroxysmal atrial fibrillation[ICD10: I48.0] Clarice Elaine MD [facility] CPT-4: 65846 02/29/2016 ([id number]) 37244 EST. PATIENT, LEVEL IV Diagnosis: Paroxysmal atrial fibrillation[ICD10: I48.0] Diagnosis: Hypothyroidism, unspecified[ICD10: E03.9] Diagnosis: Type 2 diabetes mellitus without complications[ICD10: E11.9] Diagnosis: Essential (primary) hypertension[ICD10: I10] Diagnosis: Acute maxillary sinusitis, unspecified[ICD10: J01.00] Diagnosis: Moderate persistent asthma, uncomplicated[ICD10: J45.40] Clarice Elaine MD, [facility] CPT-4: 45098 02/03/2016 ([id number]) 39064 EST. PATIENT, LEVEL IV Diagnosis: Type 2 diabetes mellitus without complications[ICD10: E11.9] Diagnosis: Hypothyroidism, unspecified[ICD10: E03.9] Diagnosis: Moderate persistent asthma, uncomplicated[ICD10: J45.40] Diagnosis: Essential (primary) hypertension[ICD10: I10] Clarice Elaine MD, [facility] CPT-4: 63311 12/21/2015 ([id number]) 45600 EST. 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 PATIENT, LEVEL IV Diagnosis: Type 2 diabetes mellitus without complications[ICD10: E11.9] Diagnosis: Essential (primary) hypertension[ICD10: I10] Diagnosis: Hypothyroidism, unspecified[ICD10: E03.9] Clarice Elaine MD, [facility] CPT-4: 39517 06/22/2015 ([id number]) 35754 EST. PATIENT, LEVEL IV Diagnosis: ESSENTIAL HYPERTENSION[ICD9: 401.9] Diagnosis: DIABETES TYPE II[ICD9: 250.00] Clarice Elaine MD, [facility] CPT-4: 84765 12/22/2014 ([id number]) 69405 EST. PATIENT, LEVEL IV Diagnosis: ACUTE BRONCHITIS[ICD9: 466.0] Diagnosis: Acute asthma exacerbation[ICD9: 493.92] Diagnosis: ESSENTIAL HYPERTENSION[ICD9: 401.9] Diagnosis: DIABETES TYPE II[ICD9: 250.00] Clarice Elaine MD, [facility] CPT-4: 89180 08/17/2014 ([id number]) 27933 EST. PATIENT, LEVEL IV Diagnosis: DIABETES TYPE II[ICD9: 250.00] Diagnosis: ESSENTIAL HYPERTENSION[ICD9: 401.9] Diagnosis: Acute asthma exacerbation[ICD9: 493.92] Clarice Elaine MD, [facility] CPT-4: 15254 04/13/2014 ([id number]) 42105 EST. PATIENT, LEVEL IV Diagnosis: DIABETES TYPE II[ICD9: 250.00] Diagnosis: ESSENTIAL HYPERTENSION[ICD9: 401.9] Diagnosis: HYPOTHYROIDISM[ICD9: 244.9] Clarice Elaine MD, [facility] CPT-4: 40307 12/11/2013 ([id number]) 12584 EST. PATIENT, LEVEL IV Diagnosis: DM W/O COMPLICATION TYPE II, UNCONTROLLED[ICD9: 250.02] Diagnosis: ESSENTIAL HYPERTENSION[ICD9: 401.9] Clarice Elaine MD, [facility] CPT- 4: 63590 11/10/2013 ([id number]) 36322 EST. PATIENT, LEVEL IV Diagnosis: DM W/O COMPLICATION TYPE II, UNCONTROLLED[SNOMED: 11764150] Diagnosis: ESSENTIAL HYPERTENSION[SNOMED: 36449822] Diagnosis: ACUTE BRONCHITIS[ICD9: 466.0] Clarice Elaine MD [facility] CPT-4: 72315 08/11/2013 ([id number]) 90622 EST. PATIENT, LEVEL IV Diagnosis: DM W/O COMPLICATION TYPE II, UNCONTROLLED[SNOMED: 74443258] Diagnosis: ATRIAL FIBRILLATION[ICD9: 427.31] Diagnosis: ESSENTIAL HYPERTENSION[SNOMED: 85958236] Clarice Elaine MD [facility] CPT-4: 49948 05/12/2013 ([id number]) 18117 EST. PATIENT, LEVEL IV Diagnosis: DM W/O COMPLICATION TYPE II, UNCONTROLLED[SNOMED: 72003903] Diagnosis: ESSENTIAL HYPERTENSION[SNOMED: 13538617] Clarice Elaine MD [facility] CPT-4: 08508 01/06/2013 ([id number]) 99697 EST. PATIENT, LEVEL IV Diagnosis: DIABETES TYPE II[SNOMED: 535670122] Diagnosis: ESSENTIAL HYPERTENSION[SNOMED: 04354806] Diagnosis: Acute asthma exacerbation[ICD9: 493.92] Diagnosis: Fatigue[ICD9: 780.79] Clarice Elaine MD [facility] CPT-4: 23246 10/07/2012 ([id number]) 04232 EST. PATIENT, LEVEL IV Diagnosis: DM W/O COMPLICATION TYPE II, UNCONTROLLED[SNOMED: 38418546] Diagnosis: Lump of breast, right[ICD9: 611.72] Diagnosis: Lump on neck[ICD9: 784.2] Clarice Elaine MD [facility] CPT-4: 35298 09/11/2012 ([id number]) 24888 EST. PATIENT, LEVEL IV Diagnosis: ESSENTIAL HYPERTENSION[SNOMED: 66843472] Diagnosis: Atrial fibrillation[ICD9: 427.31] Diagnosis: Fatigue[ICD9: 780.79] Diagnosis: Encounter for monitoring digoxin therapy[ICD9: V58.83] Clarice Elaine MD [facility] CPT-4: 84871 07/15/2012 ([id number]) 01127 EST. PATIENT, LEVEL IV Diagnosis: DIABETES TYPE II[SNOMED: 790750579] Diagnosis: ESSENTIAL HYPERTENSION[SNOMED: 24860093] Clarice Elaine MD [facility] CPT-4: 13650 05/02/2012 ([id number]) 30227 EST. PATIENT, LEVEL IV Diagnosis: DM W/O COMPLICATION TYPE II, UNCONTROLLED[SNOMED: 68018423] Diagnosis: ESSENTIAL HYPERTENSION[SNOMED: 70815252] Diagnosis: HYPERLIPIDEMIA[ICD9: 272.4] Clarice Elaine MD [facility] CPT-4: 48908 03/28/2012 ([id number]) 73350 EST. PATIENT, LEVEL IV Diagnosis: DM W/O COMPLICATION TYPE II, UNCONTROLLED[SNOMED: 30266607] Diagnosis: ESSENTIAL HYPERTENSION[SNOMED: 09052560] Clarice Elaine MD [facility] CPT-4: 62682 11/27/2011 ([id number]) 42923 EST. PATIENT, LEVEL III Diagnosis: ESSENTIAL HYPERTENSION[SNOMED: 64580841] Diagnosis: ANEMIA[ICD9: 285.9] Diagnosis: Gastritis[ICD9: 535.50] Clarice Elaine MD [facility] CPT-4: 60832 10/25/2011 ([id number]) 39266 EST. PATIENT, LEVEL III Diagnosis: Anemia associated with acute blood loss[ICD9: 285.1] Diagnosis: Gastritis, acute with hemorrhage[ICD9: 535.01] Clarice Elaine MD [facility] CPT-4: 13915 10/11/2011 ([id number]) 86219 EST. PATIENT, LEVEL IV Diagnosis: Hematochezia[ICD9: 578.1] Diagnosis: ENCNTR LONG-RX USE NEC[ICD9: V58.69] Diagnosis: Abdominal pain[ICD9: 789.00] Clarice Elaine MD [facility] CPT-4: 84010 10/04/2011 ([id number]) 53180 EST. PATIENT, LEVEL IV Diagnosis: DIABETES TYPE II[SNOMED: 564969365] Diagnosis: ESSENTIAL HYPERTENSION[SNOMED: 72532293] Diagnosis: Coronary artery disease[ICD9: 414.00] Clarice Elaine MD [facility] CPT-4: 16587 09/25/2011 ([id number]) 94168 EST. PATIENT, LEVEL IV Diagnosis: Muscle spasm[ICD9: 728.85] Diagnosis: Arthralgia[ICD9: 719.40] Diagnosis: ESSENTIAL HYPERTENSION[SNOMED: 28250589] Clarice Elaine MD, [facility] CPT-4: 66451 07/31/2011 [id number] EST. PATIENT, LEVEL III Diagnosis: ACUTE SINUSITIS[ICD9: 461.9] Diagnosis: Cervicalgia[ICD9: 723.1] [facility] CPT-4: 77992 05/22/2011 66587 EST. PATIENT, LEVEL IV Diagnosis: HYPERLIPIDEMIA[ICD9: 272.4] Diagnosis: HYPOTHYROIDISM[ICD9: 244.9] Diagnosis: DM W/O COMPLICATION TYPE II, UNCONTROLLED[SNOMED: 76323364] Clarice Elaine MD, [facility] CPT-4: 04600 05/05/2011 Plan of Care Planned Activity Notes Codes Status Date Visit Plan: Diabetes Mellitus - not optimally [...] of control. 05/27/2018 Appointment: Clarice Elaine WPtel: [address] [place], [place] [id number] (15 min) Moderate 05/27/2018 Patient Education: Patient [...] becoming uncontrolled. 01/21/2018 Appointment: Clarice Elaine WPtel: [phone] (15 min) Moderate 01/21/2018 Patient Education: Patient [...] venofer IV. 12/04/2017 Appointment: Clarice Elaine WPtel: [phone] [facility] (15 min) Moderate 12/04/2017 Patient Education: Patient [...] instructions/medication interventions. HTN- elevated today-monitor at home Zjgrhx-hopclri-sltpu labs Allergies-add flonase nasal spray 11/13/2017 Visit Plan: BPPV - Benign Paroxysmal Positional Vertigo - discussed diagnosis with the patient, offered the pt the appropriate additional information in hand-out. Pt instructed in home exercises to help alleviate and prevent future recurrent episodes of vertigo. Pt informed that if symptoms worsen, call the office for further instructions/medication interventions. HTN- elevated today-monitor at home Kzghgt-yjhnpoa-rnyrq labs Allergies-add flonase nasal spray 11/13/2017 Appointment: Socorro Salmeron WPtel: [phone] [facility] (30 min) Complex 11/13/2017 Patient Education: Patient [...] acute changes. 10/30/2017 Appointment: Socorro Salmeron WPtel: [facility]5 [phone] (30 min) Complex 10/30/2017 Patient Education: Patient Medication Summary Completed 10/30/2017 Appointment: Clarice Elaine WPtel: [facility] (15 min) Moderate 09/25/2017 Visit Plan: GERD-continue protonix and carafate-low spice diet -call if symptoms uncontrolled Melana-history of anemia-check Hgb-stay off aspirin per Dr Lauren Mcdermott-now in NSR -continue xarelto-follow up with Dr Aguilar as scheduled DM-check Hgb A1C 09/20/2017 Visit Plan: GERD-continue protonix and carafate-low spice diet -call if symptoms uncontrolled Melana-history of anemia-check Hgb-stay off aspirin per Dr Aguilar Afib-now in NSR -continue xarelto-follow up with Dr Aguilar as scheduled DM-check Hgb A1C 09/20/2017 Appointment: Socorro Salmeron WPtel: [phone] [phone] [place] (30 min) Complex 09/20/2017 Patient Education: Patient Medication Summary Completed 09/20/2017 Appointment: Clarice Elaine WPtel: [phone] [facility] [place] (15 min) Moderate 06/26/2017 Visit Plan: Hypertension [...] removal process. 05/29/2017 Appointment: Clar[facility] Elaine [facility]el[phone] [place] (15 min) Moderate 05/29/2017 Patient Education: Patient Medication Summary Completed 05/29/2017 Patient Education: Hypertension Completed 05/29/2017 Visit Plan: Bronchitis - acute case of bronchitis identified. Pt has been given antibiotics, breathing treatments as appropriate, and pt has been instructed to call if symptoms are not improved, or if symptoms acutely worsen. Chest pain - chest wall - toradol shot hospira [id number] november 2018 05/14/2017 Visit Plan: Bronchitis - acute case of bronchitis identified. Pt has been given antibiotics, breathing treatments as appropriate, and pt has been instructed to call if symptoms are not improved, or if symptoms acutely worsen. Chest pain - chest wall - toradol shot hospira [id number] november 2018 05/14/2017 Appointment: Clar[facility] Elaine [facility]el[phone] (15 min) Moderate 05/14/2017 Patient Education: Patient [...] clinic today. 03/06/2017 Appointment: Clar[facility] Elaine [facility]el[phone] (15 min) Moderate 03/06/2017 Patient Education: Patient Medication Summary Completed 03/06/2017 Patient Education: Hypertension Completed 03/06/2017 Appointment: Clarice Elaine [facility]el[phone] (15 min) Moderate 12/05/2016 Visit Plan: Hypertension [...] current treatment. 11/01/2016 Appointment: Clarice Elaine WPtel: [phone] [facility] (15 min) Moderate 11/01/2016 Patient Education: [...] ACUTE ILLNESS. 10/18/2016 Appointment: Clarice Elaine WPtel: [phone] [facility] (15 min) Moderate 10/18/2016 Patient Education: [...] acute changes 10/12/2016 Appointment: Jayne Ragland WPtel: [phone] [facility] (30 min) Complex 10/12/2016 Patient Education: [...] at home. 09/04/2016 Appointment: Clarice Elaine WPtel: [phone] [facility] (15 min) Moderate 09/04/2016 Patient Education: Patient Medication Summary Completed 09/04/2016 Patient Education: Obesity Completed 09/04/2016 Patient Education: Hypertension Completed 09/04/2016 Appointment: Jayne Ragland WPtel: [phone] [facility] MCR - Annual Wellness Visit 06/08/2016 Visit Plan: [...] glucose control. 05/01/2016 Appointment: Clarice Elaine WPtel: [phone] [facility] (15 min) Moderate 05/01/2016 Patient Education: [...] acute changes 02/29/2016 Appointment: Clarice Elaine WPtel: [facility] [facility] Procedure 02/29/2016 Patient Education: Patient Medication [...] pressure readings. 12/21/2015 Appointment: Clarice Elaine [facility]Ptel: [phone] [facility] (15 min) Moderate 12/21/2015 Patient Education: Patient [...] shot today 10/25/2015 Appointment: Clarice Elaine WPtel: [phone] [facility] (15 min) Moderate 10/25/2015 Patient Education: Patient [...] ACUTE ILLNESS. 10/19/2015 Appointment: Socorro Salmeron WPtel: [phone] (30 min) Complex 10/19/2015 Patient Education: Patient [...] at home. 08/17/2014 Appointment: Clarice Elaine [facility]Ptel[phone] Follow up 08/17/2014 Patient Education: Patient Medication [...] prn albuterol. 04/13/2014 Appointment: Clarice Elaine [facility]Ptel: [phone] [facility] Follow up 04/13/2014 Patient Education: Patient Medication [...] control. 12/11/2013 Appointment: Clarice Elaine [facility]Ptel: [phone] [facility] Follow up 12/11/2013 Patient Education: Patient Medication [...] acute concerns. 11/10/2013 Appointment: Clarice Elaine [facility]Ptel: [phone] [facility] Follow up 11/10/2013 Patient Education: Patient Medication Summary Completed 11/10/2013 Patient Education: Hypertension Completed 11/10/2013 Appointment: CheleClarice WPtel: [phone] [facility] [place] Lab Draw 11/04/2013 Patient Education: Patient [...] pharmacy. 08/11/2013 Appointment: Clarice Elaine WPtel: [phone] [facility] [place] Follow up 08/11/2013 Patient Education: Patient [...] shot today 05/12/2013 Appointment: Clarice Elaine WPtel: [phone] [facility] Follow up 05/12/2013 Patient Education: Patient Medication [...] control. 01/06/2013 Appointment: Clarice Elaine WPtel: [phone] [facility] Follow up 01/06/2013 Patient Education: Patient Medication [...] today. 10/07/2012 Appointment: Clarice Elaine [facility]Ptel: [phone] [facility] Follow up 10/07/2012 Patient Education: Patient Medication [...] ultrasound 09/11/2012 Appointment: Clarice Elaine WPtel: [phone] [facility] Follow up 09/11/2012 Patient Education: Patient Medication [...] digoxin level. 07/15/2012 Appointment: Clarice Elaine WPtel: [phone] [facility] Follow up 07/15/2012 Patient Education: Patient Medication [...] Plavix. 05/02/2012 Appointment: Clarice Elaine WPtel: [phone] [facility] Follow up 05/02/2012 Patient Education: Patient Medication [...] COMPELTELY. 03/28/2012 Appointment: Clarice Elaine [facility]Ptel: [phone] [facility] Follow up 03/28/2012 Patient Education: Patient Medication [...] at home. 11/27/2011 Appointment: Clarice Elaine WPtel: [address] [place], [place] [address] [place] Follow up 11/27/2011 Patient Education: Patient Medication Summary Completed 11/27/2011 Patient Education: High Blood Pressure: Essential Hypertension Completed 11/27/2011 Patient Education: Patient Medication Summary Completed 11/06/2011 Appointment: Clarice Elaine WPtel: [address] [place], [place] [id number] Other 11/03/2011 Appointment: Clarice Elaine WPtel: [address] [place], [place] [phone] Other 11/02/2011 Appointment: Clarice Elaine WPtel: [address] [place], [place] [phone] [place] Lab Draw 10/31/2011 Visit Plan: Hypertension - [...] times daily. 10/25/2011 Appointment: Clarice Elaine WPtel: [address] [place], [place] [phone] Follow up 10/25/2011 Patient Education: Patient Medication Summary Completed 10/25/2011 Patient Education: High Blood Pressure: Essential Hypertension Completed 10/25/2011 Appointment: Clarice Elaine WPtel: [address] [place] [address] [place] Lab Draw 10/16/2011 Patient Education: Patient [...] to 11.4 10/11/2011 Appointment: Clarice Elaine WPtel: [phone] [facility] Other 10/11/2011 Patient Education: Patient Medication Summary Completed 10/11/2011 Appointment: Clarice Elaine WPtel: [facility] Other 10/10/2011 Visit Plan: Abdominal pain [...] remained stable. 10/04/2011 Appointment: Clarice Elaine WPtel: [facility]8 [facility]66[facility] Follow up 10/04/2011 Patient Education: Patient Medication [...] not improve. 09/25/2011 Appointment: Clarice Elaine WPtel: [facility]9 [facility] Other 09/25/2011 Patient Education: Patient Medication [...] not improve. 07/31/2011 Appointment: Clarice Elaine WPtel: [phone] [facility] Other 07/31/2011 Patient Education: Patient Medication [...] follow expected course, or if any worse. Miranda of volteran gel provided and instructed patient on use. 05/22/2011 Appointment: Socorro Salmeron WPtel: [phone] [facility] Other 05/22/2011 Patient Education: Patient Medication Summary [...] increased. 05/05/2011 Appointment: Clarice Elaine WPtel: [phone] [facility] Other 05/05/2011 Patient Education: Patient Medication Summary Completed 05/05/2011 Patient Education: High Cholesterol Completed 05/05/2011 Appointment: Clarice Elaine WPtel: [phone] [facility] Other 05/04/2011 Appointment: Clarice Elaine WPtel: [facility]5 [facility] Lab Draw 05/02/2011 Patient Education: Patient Medication Summary Completed 05/02/2011 Patient Education: High Blood Pressure: Essential Hypertension Completed 05/02/2011 Instructions Comment . Hypertension - well controlled - continue [...] do not improve. . Diabetes Mellitus - controlled - per [...] with symbicort. Pt given steroid shot today. . Diabetes Mellitus - controlled - per [...] to use Symbicort and prn albuterol. . GI bleed secondary to the medication causing irritation to the stomach and it led to EROSIVE GASTRITIS.. The protonix is supposed to decrease the amount of acid in the stomach and preventing the medication and the acid from causing a hole in the stomach and further bleeding. Anemia- improved, the hemoglobin has improved from 10.6 to 11.4 . Diabetes Mellitus - Uncontrolled - per [...] week INSTEAD OF STOPPING THE ASPIRIN COMPELTELY. STOP ENSURE - START ON GLUCERNA DECREASE [...] pt is to call for acute concerns. stop the janumet 50/1000mg and start on the janumet 100/1000mg daily. P2B - peanut powder - look at the organic section at [facility] or in [facility] at the peanut butter section . Diabetes [...] change in blood pressure readings at home. stop your current metformin - Dr. Elaine [...] home, call office with blood pressure readings. . DR. ELAINE IN TO SEE PT [...] AND EVALUATION OF THE ACUTE ILLNESS. . Diabetes Mellitus - not optimally controlled [...] based on previous levels of control. . Diabetes Mellitus - Uncontrolled - [...] in clinic today. . Diabetes Mellitus - Uncontrolled - per [...] will have pt get mammogram and ultrasound probiotic increase to three times daily while [...] to four times daily. . Diabetes Mellitus - Uncontrolled - per [...] salt in the diet. Flu shot today . Hypertension - well controlled - continue with current medications, continue with no added salt diet. Pt has been encouraged to exercise daily. The pt has been advised to call the office if there are any acute concerns about change in blood pressure readings at home. Esophagitis - RX for pantoprazole and carafate given to patient - continue with current treatment. CHECK LABS VERTIGO EXERCISES FLONASE NASAL SPRAY . BPPV - Benign Paroxysmal Positional Vertigo - discussed diagnosis with the patient, offered the pt the appropriate additional information in hand-out. Pt instructed in home exercises to help alleviate and prevent future recurrent episodes of vertigo. Pt informed that if symptoms worsen, call the office for further instructions/medication interventions. HTN-elevated today-monitor at home Mamabe-xtroior-qpskm labs Allergies-add flonase nasal spray CHECK LABS [...] further instructions/medication interventions. HTN-elevated today-monitor at home Szqzig-ozeqoet-qdyax labs Allergies-add flonase nasal spray . Esophageal Reflux - the patient has [...] is stable, monitor for acute changes . Edema - pt has been advised [...] pain is worsening or does not improve. Recommend claritin 10mg po daily at least [...] any worse. RX sent to patient's pharmacy. . Hypertension - well controlled - continue [...] - chest wall - toradol shot hospira [id number] november 2018 . Bronchitis - acute case of bronchitis identified. Pt has been given antibiotics, breathing treatments as appropriate, and pt has been instructed to call if symptoms are not improved, or if symptoms acutely worsen. Chest pain - chest wall - toradol shot hospira [id number] november 2018 . Asthma Exacerbation - Asthma [...] but her HGB has remained stable. . Diabetes Mellitus -fairly well controlled - [...] allow for greater blood glucose control. . DM - uncontrolled due to need [...] months based on previous levels of control. albuterol nebulizer - use three times [...]
--- OUTSIDE RECORDS SUMMARY | 2018-12-28 04:31 | XMS REPORT | CCD ---
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 Unknown Has never used illegal drugs 05/05/2011 Allergies, Adverse Reactions, Alerts Substance Reaction Codes Entered Date Inactivated Date Status noroxin RxNorm: 7517 05/05/2011 No Inactive Date Active trovan RxNorm: 348882 05/05/2011 No Inactive Date Active * NO KNOWN FOOD ALLERGIES Unknown 05/05/2011 No Inactive Date Active PREDNISONE RxNorm: 8640 05/05/2011 No Inactive Date Active cephalexin RxNorm: 2231 05/05/2011 No Inactive Date Active theophylline RxNorm: 70104 05/05/2011 No Inactive Date Active azithromycin Unknown 10/11/2011 No Inactive Date Active Levaquin RxNorm: 04173 10/11/2011 No Inactive Date Active MORPHINE SULFATE [...] mL (0.083 %) solution for nebulization RxNorm: 696640 USE 1 VIAL IN NEBULIZER 4 TIMES DAILY NEEDED FOR ASTHMA 08/26/2018 No Stop Date Active Symbicort 160 mcg-4.5 mcg/actuation HFA aerosol inhaler RxNorm: 3473486 1 INH BID 06/07/2018 07/06/2018 Inactive Symbicort 160 mcg-4.5 mcg/actuation HFA aerosol inhaler RxNorm: 1805580 1 INH 06/07/2018 06/06/2018 Inactive glipizide 5 mg tablet RxNorm: 724083 1/2 Tablet(s) PO BID TAKE ONE-HALF TABLET BY MOUTH TWICE DAILY 05/27/2018 08/19/2019 Active Synthroid 75 mcg tablet RxNorm: 363210 1 Tablet(s) PO daily 05/15/2018 11/10/2018 Active Synthroid 75 mcg tablet RxNorm: 347973 1 Tablet(s) PO daily 05/15/2018 05/14/2018 Inactive Synthroid 88 mcg tablet RxNorm: 318999 TAKE 1 TABLET BY MOUTH ONCE DAILY 04/08/2018 05/14/2018 Inactive amiodarone 200 mg tablet RxNorm: 070929 1/2 Tablet(s) PO BID 01/21/2018 05/26/2018 Inactive Bactrim DS 800 mg-160 mg tablet RxNorm: 551157 1 Tablet(s) PO BID 01/03/2018 01/02/2018 Inactive take probiotic bid x 7 days Bactrim DS 800 mg-160 mg tablet RxNorm: 818635 1 Tablet(s) PO BID 01/03/2018 01/09/2018 Inactive take probiotic bid x 7 days nitrofurantoin 100 mg capsule RxNorm: 946207 1 Capsule(s) PO BID 12/31/2017 01/06/2018 Inactive nitrofurantoin 100 mg capsule RxNorm: 916367 1 Capsule(s) PO BID 12/31/2017 12/30/2017 Inactive nitrofurantoin 100 mg capsule RxNorm: 992254 1 Capsule(s) PO BID 12/31/2017 12/30/2017 Inactive glipizide 5 mg tablet RxNorm: 709607 TAKE ONE-HALF TABLET BY MOUTH TWICE DAILY 11/23/2017 05/26/2018 Inactive meclizine 25 mg tablet RxNorm: 201415 1 Tablet(s) PO Q6 PRN 11/13/2017 No Stop Date Active Kenalog 40 mg/mL suspension for injection RxNorm: 9024551 1.5 Milliliter(s) Inj 10/30/2017 10/30/2017 Inactive Augmentin 875 mg-125 mg tablet RxNorm: 050608 1 Tablet(s) PO BID 10/30/2017 11/05/2017 Inactive Synthroid 88 mcg tablet RxNorm: 803739 TAKE ONE TABLET BY MOUTH ONCE DAILY 10/15/2017 04/07/2018 Inactive metformin 500 mg tablet RxNorm: 156668 TAKE ONE TABLET BY MOUTH WITH BREAKFAST AND ONE TABLET WITH LUNCH AND TWO TABLETS WITH SUPPER 10/15/2017 01/20/2018 Inactive albuterol sulfate 2.5 mg/3 mL (0.083 %) solution for nebulization RxNorm: 586646 USE ONE VIAL IN NEBULIZER 4 TIMES DAILY NEEDED FOR ASTHMA 08/16/2017 08/25/2018 Inactive Plavix 75 mg tablet RxNorm: 398944 TAKE ONE TABLET BY MOUTH ONCE DAILY 06/25/2017 06/24/2017 Inactive Plavix 75 mg tablet RxNorm: 481840 1 Tablet(s) PO daily TAKE ONE TABLET BY MOUTH ONCE DAILY 06/25/2017 09/19/2017 Inactive acyclovir 800 mg tablet RxNorm: 722239 1 Tablet(s) PO QID 05/15/2017 05/14/2017 Inactive acyclovir 800 mg tablet RxNorm: 006108 1 Tablet(s) PO QID 05/15/2017 05/21/2017 Inactive tramadol 50 mg tablet RxNorm: 223392 1 Tablet(s) PO TID 05/15/2017 05/24/2017 Inactive ketorolac 60 mg/2 mL intramuscular solution RxNorm: 267806 2 Milliliter(s) IM 05/14/2017 05/14/2017 Inactive Augmentin 875 mg-125 mg tablet RxNorm: 652333 1 Tablet(s) PO BID 05/14/2017 05/23/2017 Inactive Synthroid 88 mcg tablet RxNorm: 173790 TAKE ONE TABLET BY MOUTH ONCE DAILY; NEED THYROID LABS DONE 04/16/2017 10/12/2017 Inactive Kenalog 40 mg/mL suspension for injection RxNorm: 3454070 Milliliter(s) Inj 03/06/2017 03/06/2017 Inactive metformin 500 mg tablet RxNorm: 827006 1 Tablet(s) UD 1 tab at breakfast, 1tab at lunch, 2 tab at supper 03/06/2017 09/01/2017 Inactive glipizide 5 mg tablet RxNorm: 059384 TAKE ONE-HALF TABLET BY MOUTH TWICE DAILY 02/23/2017 11/19/2017 Inactive Synthroid 88 mcg tablet RxNorm: 697544 Tablet(s) PO TAKE ONE TABLET BY MOUTH DAILY 01/17/2017 04/15/2017 Inactive Needs thyroid labs done Plavix 75 mg tablet RxNorm: 556624 TAKE ONE TABLET BY MOUTH ONCE DAILY 12/25/2016 06/22/2017 Inactive Kenalog 40 mg/mL suspension for injection RxNorm: 4945038 1.5 Milliliter(s) Inj 09/04/2016 09/04/2016 Inactive Janumet XR 100 mg-1,000 mg tablet,extended release RxNorm: 5169510 1 Tablet(s) PO daily 09/04/2016 03/02/2017 Inactive glipizide 5 mg tablet RxNorm: 086249 TAKE ONE-HALF TABLET BY MOUTH TWICE DAILY 08/24/2016 02/19/2017 Inactive Janumet XR 50 mg-1,000 mg tablet,extended release RxNorm: 3433083 TAKE ONE TABLET BY MOUTH ONCE DAILY 05/29/2016 09/03/2016 Inactive metoprolol tartrate 25 mg tablet RxNorm: 993278 1/4 Tablet(s) PO BID 05/01/2016 05/29/2016 Inactive glipizide 5 mg tablet RxNorm: 593511 TAKE ONE-HALF TABLET BY MOUTH TWICE DAILY 02/21/2016 08/18/2016 Inactive ProAir HFA 90 mcg/actuation aerosol inhaler RxNorm: 217761 2 Puff(s) INH PRN as needed ASTHMA 02/03/2016 03/03/2016 Inactive Accu-Chek Active Test strips RxNorm: 1 test Miscellaneous daily 02/03/2016 08/25/2019 Active DX250.00 albuterol sulfate 2.5 mg/3 mL (0.083 %) solution for nebulization RxNorm: 424696 1 Milliliter(s) INH QID as needed ASTHMA 02/03/2016 06/01/2016 Inactive Janumet XR 50 mg-1,000 mg tablet,extended release RxNorm: 9415448 1 Tablet(s) PO daily 02/03/2016 05/28/2016 Inactive Augmentin 875 mg-125 mg tablet RxNorm: 648493 1 Tablet(s) PO BID 02/03/2016 02/12/2016 Inactive sucralfate 1 gram tablet RxNorm: 562071 1 Tablet(s) PO QID - take 30 minutes before meals and before supper 12/21/2015 04/18/2016 Inactive metformin ER 500 mg tablet,extended release 24 hr RxNorm: 246063 1 Tablet(s) PO BID 12/21/2015 02/02/2016 Inactive digoxin 250 mcg tablet RxNorm: 701322 1 Tablet(s) PO daily 12/21/2015 01/20/2018 Inactive Synthroid 88 mcg tablet RxNorm: 200028 Tablet(s) PO TAKE ONE TABLET BY MOUTH DAILY 12/20/2015 01/16/2017 Inactive Plavix 75 mg tablet RxNorm: 908837 1 Tablet(s) PO daily 12/20/2015 12/13/2016 Inactive Kenalog 40 mg/mL suspension for injection RxNorm: 8938014 1 Milliliter(s) Inj 11/11/2015 11/11/2015 Inactive Kenalog 40 mg/mL suspension for injection RxNorm: 2383074 1 Milliliter(s) Inj 10/25/2015 10/25/2015 Inactive metformin 500 mg tablet RxNorm: 433640 2 Tablet(s) PO BID 07/16/2015 12/20/2015 Inactive metformin 500 mg tablet RxNorm: 965100 TAKE TWO TABLETS BY MOUTH TWICE DAILY 07/16/2015 12/20/2015 Inactive albuterol sulfate 2.5 mg/3 mL (0.083 %) solution for nebulization RxNorm: 025606 1 Milliliter(s) INH QID as needed ASTHMA 07/14/2015 11/10/2015 Inactive glipizide 5 mg tablet RxNorm: 255976 1/2 Tablet(s) PO BID 02/03/2015 01/28/2016 Inactive Symbicort 160 mcg-4.5 mcg/actuation HFA aerosol inhaler RxNorm: 9564995 1 INH 01/06/2015 06/06/2018 Inactive metformin 500 mg tablet RxNorm: 113397 2 Tablet(s) PO BID 12/22/2014 06/19/2015 Inactive Plavix 75 mg tablet RxNorm: 931424 1 Tablet(s) PO daily 12/02/2014 11/26/2015 Inactive note directions of one per day Synthroid 88 mcg tablet RxNorm: 225652 1 Tablet(s) PO daily TAKE ONE TABLET BY MOUTH DAILY 12/02/2014 04/07/2018 Inactive Accu-Chek Active Test strips RxNorm: 1 test Miscellaneous daily 08/17/2014 02/02/2016 Inactive DX250.00 Kenalog 40 mg/mL suspension for injection RxNorm: 0566821 Milliliter(s) Inj 08/17/2014 08/17/2014 Inactive doxycycline hyclate 100 mg tablet RxNorm: 697030 1 Tablet(s) PO BID 08/17/2014 08/26/2014 Inactive albuterol sulfate 2.5 mg/3 mL (0.083 %) solution for nebulization RxNorm: 914458 1 Milliliter(s) INH QID as needed ASTHMA 08/17/2014 08/16/2014 Inactive albuterol sulfate 2.5 mg/3 mL (0.083 %) solution for nebulization RxNorm: 927078 1 Milliliter(s) INH QID as needed ASTHMA 08/17/2014 12/14/2014 Inactive doxycycline hyclate 100 mg tablet RxNorm: 673052 1 Tablet(s) PO BID 08/17/2014 08/16/2014 Inactive Accu-Chek Multiclix Lancet RxNorm: 1 Miscellaneous daily TEST BLOOD SUGAR EVERY DAY 08/17/2014 09/10/2015 Inactive DX 250.00 metformin 500 mg tablet RxNorm: 284087 TAKE TWO TABLETS BY MOUTH TWICE DAILY 06/23/2014 09/20/2014 Inactive metformin 500 mg tablet RxNorm: 118612 2 Tablet(s) PO BID 06/22/2014 12/18/2014 Inactive Bactrim DS 800 mg-160 mg tablet RxNorm: 057973 1 Tablet(s) PO BID 05/11/2014 05/17/2014 Inactive Bactrim DS 800 mg-160 mg tablet RxNorm: 567043 1 Tablet(s) PO BID 05/11/2014 05/10/2014 Inactive Kenalog 40 mg/mL suspension for injection RxNorm: 3178853 Milliliter(s) Inj 04/13/2014 04/13/2014 Inactive Accu-Chek Active Test strips RxNorm: 1 TEST MISCELLANEOUS BID 04/06/2014 10/22/2014 Inactive glipizide 5 mg tablet RxNorm: 251733 1/2 Tablet(s) PO BID 03/03/2014 02/02/2015 Inactive Synthroid 88 mcg tablet RxNorm: 031023 1 Tablet(s) PO daily TAKE ONE TABLET BY MOUTH DAILY 12/11/2013 12/01/2014 Inactive Plavix 75 mg tablet RxNorm: 672154 1 Tablet(s) PO daily 12/11/2013 12/01/2014 Inactive note directions of one per day glipizide 5 mg tablet RxNorm: 593920 1/2 Tablet(s) PO BID 11/10/2013 03/02/2014 Inactive Lipitor 10 mg tablet RxNorm: 500574 1 Tablet(s) PO daily 11/10/2013 12/21/2014 Inactive Accu-Chek Active Test strips RxNorm: strip miscellaneous TEST BLOOD SUGAR EVERY DAY 11/03/2013 No Stop Date Active Accu-Chek Multiclix Lancet RxNorm: misc miscellaneous TEST BLOOD SUGAR EVERY DAY 08/07/2013 08/16/2014 Inactive Accu-Chek Active Test strips RxNorm: strip miscellaneous TEST BLOOD SUGAR EVERY DAY 08/05/2013 No Stop Date Active digoxin 125 mcg tablet RxNorm: 576303 1 Tablet(s) PO daily 08/05/2013 10/28/2014 Inactive metformin 500 mg tablet RxNorm: 837047 2 Tablet(s) PO BID 06/12/2013 06/21/2014 Inactive metformin 500 mg tablet RxNorm: 562856 2 Tablet(s) PO BID 05/12/2013 06/11/2013 Inactive metformin 500 mg tablet RxNorm: 665672 Tablet(s) PO TAKE ONE & ONE-HALF TABLETS BY MOUTH TWICE DAILY 04/10/2013 05/11/2013 Inactive Synthroid 88 mcg tablet RxNorm: 028592 Tablet(s) PO TAKE ONE TABLET BY MOUTH DAILY 01/07/2013 12/19/2015 Inactive Synthroid 88 mcg tablet RxNorm: 766926 1 Tablet(s) PO daily TAKE ONE TABLET BY MOUTH DAILY 01/06/2013 12/10/2013 Inactive Plavix 75 mg tablet RxNorm: 460261 1 Tablet(s) PO daily 12/09/2012 12/03/2013 Inactive note directions of one per day Lipitor 80 mg tablet RxNorm: 349084 Tablet(s) PO TAKE 1 TABLET BY MOUTH EVERY DAY 10/28/2012 11/09/2013 Inactive Synthroid 88 mcg tablet RxNorm: 266192 Tablet(s) PO TAKE ONE TABLET BY MOUTH DAILY 10/07/2012 10/06/2012 Inactive Synthroid 88 mcg tablet RxNorm: 723899 1 Tablet(s) PO daily TAKE ONE TABLET BY MOUTH DAILY 10/07/2012 01/05/2013 Inactive Kenalog 40 mg/mL Susp for Injection RxNorm: 0874630 1 Milliliter(s) IM 10/07/2012 10/07/2012 Inactive digoxin 250 mcg tablet RxNorm: 0540431 1/2 Tablet(s) PO daily 07/15/2012 08/04/2013 Inactive Synthroid 88 mcg tablet RxNorm: 605417 Tablet(s) PO TAKE ONE TABLET BY MOUTH DAILY 06/28/2012 10/06/2012 Inactive Accu-Chek Multiclix Lancet RxNorm: Misc Miscellaneous 06/05/2012 No Stop Date Active TEST BLOOD SUGAR EVERY DAY Accu-Chek Active Test Strips RxNorm: Strip Miscellaneous 06/05/2012 No Stop Date Active TEST BLOOD SUGAR EVERY DAY Lipitor 80 mg tablet RxNorm: 543459 1/2 Tablet(s) PO daily 03/28/2012 No Stop Date Active TAKE 1 TABLET BY MOUTH EVERY DAY metformin 500 mg tablet RxNorm: 219400 1.5 Tablet(s) PO BID 03/28/2012 04/09/2013 Inactive Lipitor 80 mg tablet RxNorm: 604432 1/2 Tablet(s) PO 03/28/2012 08/16/2014 Inactive TAKE 1 TABLET BY MOUTH EVERY DAY Lipitor 80 mg tablet RxNorm: 017744 1/2 Tablet(s) PO daily 03/28/2012 No Stop Date Active TAKE 1 TABLET BY MOUTH EVERY DAY Influenza Virus Vaccine 0.5 mL RxNorm: IM 03/26/2012 03/26/2012 Inactive Pneumovax 23 25 mcg/0.5 mL Injection RxNorm: 489649 Milliliter(s) Inj 03/26/2012 03/26/2012 Inactive metformin 500 mg tablet RxNorm: 017919 1 Tablet(s) PO BID 11/27/2011 03/27/2012 Inactive Plavix 75 mg tablet RxNorm: 307176 1 Tablet(s) PO daily 11/01/2011 11/24/2012 Inactive note directions of one per day Lipitor 80 mg tablet RxNorm: 864557 Tablet(s) PO 10/18/2011 03/27/2012 Inactive TAKE 1 TABLET BY MOUTH EVERY DAY Protonix 40 mg Tab RxNorm: 090665 1 Tablet(s) PO BID 10/11/2011 12/20/2015 Inactive Accu-Chek Active Test Strips RxNorm: 1 test Miscellaneous daily 10/04/2011 08/16/2014 Inactive Carafate 1 gram Tab RxNorm: 818926 1 Tablet(s) PO QID 10/02/2011 10/31/2011 Inactive Carafate 1 gram Tab RxNorm: 922013 1 Tablet(s) PO TID 09/29/2011 09/28/2011 Inactive Carafate 1 gram Tab RxNorm: 129468 1 Tablet(s) PO TID 09/29/2011 10/01/2011 Inactive Kenalog 40 mg/mL Susp for Injection RxNorm: 3056352 2 Milliliter(s) Inj 07/31/2011 07/31/2011 Inactive Synthroid 88 mcg tablet RxNorm: 496480 1 Tablet(s) PO daily 06/06/2011 10/11/2011 Inactive Accu-Chek Active Test Strips RxNorm: 1 test Miscellaneous BID 06/05/2011 10/03/2011 Inactive Accu-Chek Multiclix Lancet RxNorm: 1 test Miscellaneous BID 06/02/2011 09/24/2011 Inactive Accu-Chek Active Test strips RxNorm: 1 test Miscellaneous BID 06/02/2011 06/04/2011 Inactive Bactrim DS 800 mg-160 mg Tab RxNorm: 586537 1 Tablet(s) PO BID 05/22/2011 05/31/2011 Inactive metformin 500 mg Tab RxNorm: 207005 1 Tablet(s) PO TID 05/05/2011 10/31/2011 Inactive Influenza Virus Vaccine 0.5 mL RxNorm: IM 05/02/2011 05/02/2011 Inactive albuterol sulfate HFA 90 mcg/Actuation Aerosol Inhaler RxNorm: 734317 1 Puff(s) INH PRN prn shortness of breath No Start Date Active Xarelto 20 mg tablet RxNorm: 6767141 1 Tablet(s) PO daily No Start Date Active multivitamin chewable tablet RxNorm: 1 Tablet(s) PO daily No Start Date Active Fish Oil 300 mg-1,000 mg capsule RxNorm: 654857 1 Capsule(s) PO occasional No Start Date Active hyoscyamine 0.125 mg sublingual tablet RxNorm: 3817073 1 Tablet(s) SL Q6 No Start Date Active simvastatin 20 mg tablet RxNorm: 299913 1/2 Tablet(s) PO daily No Start Date 12/20/2015 Inactive Zantac 75 75 mg Tab RxNorm: 869367 2 Tablet(s) PO daily No Start Date 12/20/2015 Inactive Protonix 40 mg Tab RxNorm: 896320 1 Tablet(s) PO daily No Start Date 10/10/2011 Inactive Fish Oil 1,000 mg capsule RxNorm: 3 Capsule(s) PO daily No Start Date 12/20/2015 Inactive amiodarone 400 mg tablet RxNorm: 436483 1 Tablet(s) PO daily No Start Date 12/09/2017 Inactive digoxin 125 mcg tablet RxNorm: 8527850 1 Tablet(s) PO daily No Start Date 08/04/2013 Inactive Brilinta 90 mg Tab RxNorm: 3937458 1 Tablet(s) PO daily No Start Date 10/10/2011 Inactive Fish Oil 1,000 mg Cap RxNorm: 3 Capsule(s) PO daily No Start Date 12/21/2015 Inactive Flintstones Complete 18 mg iron chewable tablet RxNorm: 2 Tablet(s) PO daily No Start Date 12/20/2015 Inactive Niaspan Extended-Release 500 mg 24 hr Tab RxNorm: 5851945 1 Tablet(s) PO daily No Start Date 09/24/2011 Inactive samples tramadol 50 mg tablet RxNorm: 556900 1 Tablet(s) PO TID No Start Date 05/14/2017 Inactive aspirin 81 mg Cap, Delayed Release RxNorm: 248263 Capsule(s) PO daily No Start Date 05/01/2012 Inactive pantoprazole 40 mg tablet,delayed release RxNorm: 129800 1 Tablet(s) PO daily No Start Date 05/26/2018 Inactive metformin 500 mg Tab RxNorm: 725523 1 Tablet(s) PO BID No Start Date 05/04/2011 Inactive Singulair 10 mg tablet RxNorm: 175760 1 Tablet(s) PO daily No Start Date 05/26/2018 Inactive Prilosec OTC 20 mg tablet,delayed release RxNorm: 689035 1 Tablet(s) PO daily No Start Date 10/31/2016 Inactive Zantac 150 mg Tab RxNorm: 635327 1 Tablet(s) PO BID No Start Date 10/10/2011 Inactive Synthroid 88 mcg Tab RxNorm: 763438 1 Tablet(s) PO daily No Start Date 06/05/2011 Inactive Plavix 75 mg Tab RxNorm: 544799 1 Tablet(s) PO daily No Start Date 10/31/2011 Inactive amiodarone 200 mg tablet RxNorm: 974308 1 Tablet(s) PO BID No Start Date 01/20/2018 Inactive Cartia XT 120 mg capsule,extended release RxNorm: 569046 1 Capsule(s) PO daily and 1 QPM if HR above [address] Dr Aguilar manages No Start Date 05/26/2018 Inactive aspirin 81 mg Cap, Delayed Release RxNorm: 209955 1 Capsule(s) PO daily No Start Date 10/01/2011 Inactive Lipitor 80 mg Tab RxNorm: 891769 1 Tablet(s) PO daily No Start Date 10/17/2011 Inactive Symbicort 160 mcg-4.5 mcg/Actuation HFA Aerosol Inhaler RxNorm: 2575495 1 INH No Start Date 01/05/2015 Inactive Medication Administered Medication Codes Instructions Start Date Status Kenalog 40 mg/mL suspension for injection RxNorm: 2870765 1.5Milliliter 10/30/2017 No longer Active ketorolac 60 mg/2 mL intramuscular solution RxNorm: 080756 2Milliliter 05/14/2017 No longer Active Kenalog 40 mg/mL suspension for injection RxNorm: 2688168 Milliliter 03/06/2017 No longer Active Kenalog 40 mg/mL suspension for injection RxNorm: 7724245 1.5Milliliter 09/04/2016 No longer Active Kenalog 40 mg/mL suspension for injection RxNorm: 1243702 1Milliliter 11/11/2015 No longer Active Kenalog 40 mg/mL suspension for injection RxNorm: 2231956 1Milliliter 10/25/2015 No longer Active Kenalog 40 mg/mL suspension for injection RxNorm: 0825591 Milliliter 08/17/2014 No longer Active Kenalog 40 mg/mL suspension for injection RxNorm: 0114210 Milliliter 04/13/2014 No longer Active Kenalog 40 mg/mL Susp for Injection RxNorm: 7474432 1Milliliter 10/07/2012 No longer Active Pneumovax 23 25 mcg/0.5 mL Injection RxNorm: 200988 Milliliter 03/26/2012 No longer Active Influenza Virus Vaccine 0.5 mL RxNorm: 03/26/2012 No longer Active Kenalog 40 mg/mL Susp for Injection RxNorm: 8491925 2Milliliter 07/31/2011 No longer Active Influenza Virus [...] allergic rhinitis ICD-10: J30.89 ICD-9: 477.8 11/13/2017 Cough ICD-10: R05 ICD-9: 786.2 10/30/2017 Mild intermittent asthma with (acute) exacerbation ICD-10: J45.21 ICD-9: 493.12 10/30/2017 Gastro-esophageal reflux disease without esophagitis ICD-10: [...] Observation Code Item Item Code Result Date Free T4 Fom513 FREE T4 1.66 ng/dL 05/09/2018 Tsh Ord6 TSH (3rd IS) 2.15 uIU/mL 05/09/2018 Cbc With Differential Ord2 WBC 6.54 K/ul 05/09/2018 Cbc With Differential Ord2 RBC 4.65 M/ul 05/09/2018 Cbc With Differential Ord2 HGB 12.8 g/dl 05/09/2018 Cbc With Differential Ord2 HCT 40.6 % 05/09/2018 Cbc With Differential Ord2 Neut% 58.5 % 05/09/2018 Cbc With Differential Ord2 Lymph% 18.0 % 05/09/2018 Cbc With Differential Ord2 MCV 87.3 fl 05/09/2018 Cbc With Differential Ord2 [place]% 11.6 % 05/09/2018 Cbc With Differential Ord2 MCH 27.5 pg 05/09/2018 Cbc With Differential Ord2 Eos% 10.2 % 05/09/2018 Cbc With Differential Ord2 MCHC 31.5 pg 05/09/2018 Cbc With Differential Ord2 Baso% 1.7 % 05/09/2018 Cbc With Differential Ord2 PLT 355 K/ul 05/09/2018 Cbc With Differential Ord2 RDW 16.4 % 05/09/2018 Cbc With Differential Ord2 Neut ABS# 3.82 K/ul 05/09/2018 Cbc With Differential Ord2 Lymph ABS# 1.18 K/ul 05/09/2018 Cbc With Differential Ord2 [place] ABS# 0.8 K/ul 05/09/2018 Cbc With Differential [...] Metabolic Ord15 CALCIUM 9.3 mg/dL 05/09/2018 %Hba1C Udx600 % HbA1c 87150- 6 8.9 % 05/09/2018 %Hba1C Pnr556 Gluc Ave 209 mg/dL 05/09/2018 LIPID GRP 7178992 CHOLESTEROL 184 mg/dL 01/14/2018 LIPID GRP 2648910 Triglyceride 65 mg/dL 01/14/2018 LIPID GRP 6935336 HDL CHOLESTEROL 53 mg/dL 01/14/2018 LIPID GRP 6606679 Chol/HDL Ratio 3.47 ratio 01/14/2018 LIPID GRP 1431657 NON-HDL Chol 131 mg/dL 01/14/2018 LIPID GRP 8202137 LDL Cholesterol 118 mg/dL 01/14/2018 A1C HPLC 0411623 Hgb A1c 22085-6 6.5 % 01/14/2018 CBC 6096614 WBC 5.8 10e9/L 01/14/2018 CBC 2831457 RBC 4.67 10e12/L 01/14/2018 CBC 5230042 HEMOGLOBIN 12.4 g/dL 01/14/2018 CBC 1006032 HEMATOCRIT 40.6 % 01/14/2018 CBC 9869458 MCV 86.9 fL 01/14/2018 CBC 1817584 MCH 26.6 pg 01/14/2018 CBC 7717581 MCHC 30.5 g/dL 01/14/2018 CBC 2050345 PLATELET COUNT 419 10e9/L 01/14/2018 CBC 3472564 Mean Plt Volume 10.1 fL 01/14/2018 CBC 8103483 Neut Auto 60.7 % 01/14/2018 CBC 8562309 Lymph Auto 24.8 % 01/14/2018 CBC 1237947 [place] Auto 9.7 % 01/14/2018 CBC 3426494 Eos Auto 3.4 % 01/14/2018 CBC 3162736 RDW 25.0 % 01/14/2018 CBC 7954502 Baso Auto 1.4 % 01/14/2018 CBC 8258027 Neutrophil Abs 3.52 10e9/L 01/14/2018 CBC 7896527 Lymphocyte Abs 1.44 10e9/L 01/14/2018 CBC 0504299 Monocyte Abs 0.56 10e9/L 01/14/2018 CBC 4236763 Eosinophil Abs 0.20 10e9/L 01/14/2018 CBC 7413133 Basophil Abs 0.08 10e9/L 01/14/2018 CBC 8113908 RDW-SD 75.4 fL 01/14/2018 MEAN GLUC 5250382 Calc Mean Gluc 140 mg/dL 01/14/2018 Culture Urine [id number] URINE CULTURE SEE NOTES 01/03/2018 Culture Urine [id number] Continued Results 01/03/2018 Urine Culture Ucult Complete [...] 70.0 % 11/20/2017 Cbc With Differential Ord2 Lymph% 18.0 % 11/20/2017 Cbc With Differential Ord2 MCV 81.0 fl 11/20/2017 Cbc With Differential Ord2 MCH 24.8 pg 11/20/2017 Cbc With Differential Ord2 [place]% 7.9 % 11/20/2017 Cbc With Differential Ord2 [...] 1.65 K/ul 11/20/2017 Cbc With Differential Ord2 [place] ABS# 0.7 K/ul 11/20/2017 Cbc With Differential Ord2 Eos ABS# 0.3 K/ul 11/20/2017 Cbc With Differential Ord2 Baso ABS# 0.1 K/ul 11/20/2017 Comp Metabolic Lem041 NA 142 mEq/L 11/20/2017 Comp Metabolic Zma115 K 4.1 mEq/L 11/20/2017 Comp Metabolic Xko518 CL 104 mEq/L 11/20/2017 Comp Metabolic Gbx021 CO2 29.0 mEq/L 11/20/2017 Comp Metabolic Hcl163 ANION GAP 13 11/20/2017 Comp Metabolic Hhj874 GLUCOSE 178 mg/dL 11/20/2017 Comp Metabolic Xcx315 Creat 0.6 mg/dL 11/20/2017 Comp Metabolic Ieg799 eGFR 112 ml/min/1.73m2 11/20/2017 Comp Metabolic Afy431 BUN 19 mg/dL 11/20/2017 Comp Metabolic Bja486 B/C Ratio 33.9 Ratio 11/20/2017 Comp Metabolic Iug383 CALCIUM 9.3 mg/dL 11/20/2017 Comp Metabolic Ywj820 ALK PHOS 60 U/L 11/20/2017 Comp Metabolic Dgi227 AST(SGOT) 13 U/L 11/20/2017 Comp Metabolic Zjv907 ALT(SGPT) 14 U/L 11/20/2017 Comp Metabolic Pys647 BILI T 0.4 mg/dL 11/20/2017 Comp Metabolic Mjw719 ALBUMIN 4.1 g/dL 11/20/2017 Comp Metabolic Xmk878 TPRO 6.0 g/dL 11/20/2017 Comp Metabolic Eag374 GLOB 1.9 g/dL 11/20/2017 Comp Metabolic Pdc207 A/G Ratio 2.2 Ratio 11/20/2017 Comp Metabolic Asl400 Osmo 290 mOsmo 11/20/2017 Cbc With Differential [...] 24.8 pg 11/13/2017 Cbc With Differential Ord2 [place]% 7.8 % 11/13/2017 Cbc With Differential Ord2 Eos% 2.3 % 11/13/2017 Cbc With Differential Ord2 MCHC 30.6 pg 11/13/2017 Cbc With Differential Ord2 PLT 458 K/ul 11/13/2017 Cbc With Differential Ord2 Baso% 0.6 % 11/13/2017 Cbc With Differential Ord2 RDW 15.2 % 11/13/2017 Cbc With Differential Ord2 Neut ABS# 8.04 K/ul 11/13/2017 Cbc With Differential Ord2 Lymph ABS# 1.57 K/ul 11/13/2017 Cbc With Differential Ord2 [place] ABS# 0.8 K/ul 11/13/2017 Cbc With Differential Ord2 Eos ABS# 0.3 K/ul 11/13/2017 Cbc With Differential Ord2 Baso ABS# 0.1 K/ul 11/13/2017 Comp Metabolic Cos364 NA 142 mEq/L 11/13/2017 Comp Metabolic Skw272 K 4.2 mEq/L 11/13/2017 Comp Metabolic Qgf940 CL 104 mEq/L 11/13/2017 Comp Metabolic Qzy153 CO2 26.0 mEq/L 11/13/2017 Comp Metabolic Jfa085 ANION GAP 16 11/13/2017 Comp Metabolic Nhl455 GLUCOSE 115 mg/dL 11/13/2017 Comp Metabolic Slr900 Creat 0.6 mg/dL 11/13/2017 Comp Metabolic Zas165 eGFR 114 ml/min/1.73m2 11/13/2017 Comp Metabolic Lpo591 BUN 15 mg/dL 11/13/2017 Comp Metabolic Zjx682 B/C Ratio 27.3 Ratio 11/13/2017 Comp Metabolic Ufz017 CALCIUM 9.2 mg/dL 11/13/2017 Comp Metabolic Cek347 ALK PHOS 59 U/L 11/13/2017 Comp Metabolic Kjr844 AST(SGOT) 12 U/L 11/13/2017 Comp Metabolic Aiz400 ALT(SGPT) 13 U/L 11/13/2017 Comp Metabolic Utv944 BILI T 0.5 mg/dL 11/13/2017 Comp Metabolic Fvg056 ALBUMIN 4.0 g/dL 11/13/2017 Comp Metabolic Zsw304 TPRO 6.0 g/dL 11/13/2017 Comp Metabolic Rbk892 GLOB 2.0 g/dL 11/13/2017 Comp Metabolic Jie851 A/G Ratio 2.0 Ratio 11/13/2017 Comp Metabolic Jgk927 Osmo 285 mOsmo 11/13/2017 Cbc With Differential [...] 26.9 pg 09/20/2017 Cbc With Differential Ord2 [place]% 9.9 % 09/20/2017 Cbc With Differential Ord2 MCHC 31.0 pg 09/20/2017 Cbc With Differential Ord2 Eos% 4.2 % 09/20/2017 Cbc With Differential Ord2 Baso% 0.8 % 09/20/2017 Cbc With Differential Ord2 PLT 392 K/ul 09/20/2017 Cbc With Differential Ord2 Neut ABS# 6.15 K/ul 09/20/2017 Cbc With Differential Ord2 RDW 15.9 % 09/20/2017 Cbc With Differential Ord2 Lymph ABS# 1.55 K/ul 09/20/2017 Cbc With Differential Ord2 [place] ABS# 0.9 K/ul 09/20/2017 Cbc With Differential Ord2 Eos ABS# 0.4 K/ul 09/20/2017 Cbc With Differential Ord2 Baso ABS# 0.1 K/ul 09/20/2017 Comp Metabolic Wci446 NA 138 mEq/L 09/20/2017 Comp Metabolic Zvq002 K 4.0 mEq/L 09/20/2017 Comp Metabolic Ian642 CL 99 mEq/L 09/20/2017 Comp Metabolic Dbg865 CO2 26.0 mEq/L 09/20/2017 Comp Metabolic Ptf508 ANION GAP 17 09/20/2017 Comp Metabolic Hxm530 GLUCOSE 275 mg/dL 09/20/2017 Comp Metabolic Cac265 Creat 0.6 mg/dL 09/20/2017 Comp Metabolic Qgi084 eGFR 96 ml/min/1.73m2 09/20/2017 Comp Metabolic Foy007 BUN 17 mg/dL 09/20/2017 Comp Metabolic Xcr147 B/C Ratio 26.6 Ratio 09/20/2017 Comp Metabolic Ctd703 CALCIUM 9.5 mg/dL 09/20/2017 Comp Metabolic Hgd368 ALK PHOS 57 U/L 09/20/2017 Comp Metabolic Wmp549 AST(SGOT) 13 U/L 09/20/2017 Comp Metabolic Eye665 ALT(SGPT) 13 U/L 09/20/2017 Comp Metabolic Nje056 BILI T 0.5 mg/dL 09/20/2017 Comp Metabolic Glb233 ALBUMIN 4.1 g/dL 09/20/2017 Comp Metabolic Onp747 TPRO 5.9 g/dL 09/20/2017 Comp Metabolic Nbe704 GLOB 1.8 g/dL 09/20/2017 Comp Metabolic Wpx648 A/G Ratio 2.3 Ratio 09/20/2017 Comp Metabolic Vam159 Osmo 287 mOsmo 09/20/2017 %Hba1C Jrx300 % HbA1c 58049- 6 7.2 % 09/20/2017 %Hba1C Rfe109 Gluc Ave 160 mg/dL 09/20/2017 MEAN GLUC 6685678 Calc Mean Gluc 169 mg/dL 02/28/2017 CBC 8309809 WBC 7.6 10e9/L 02/28/2017 CBC 7288406 RBC 4.91 10e12/L 02/28/2017 CBC 6284355 HEMOGLOBIN 13.2 g/dL 02/28/2017 CBC 7032138 HEMATOCRIT 42.7 % 02/28/2017 CBC 3859163 MCV 87.0 fL 02/28/2017 CBC 6836406 MCH 26.9 pg 02/28/2017 CBC 0153673 MCHC 30.9 g/dL 02/28/2017 CBC 6054857 PLATELET COUNT 341 10e9/L 02/28/2017 CBC 9851663 Mean Plt Volume 10.7 fL 02/28/2017 CBC 1177003 Neut Auto 62.1 % 02/28/2017 CBC 3061595 Lymph Auto 20.2 % 02/28/2017 CBC 8866774 [place] Auto 9.3 % 02/28/2017 CBC 7842760 RDW 15.8 % 02/28/2017 CBC 5295562 Eos Auto 7.1 % 02/28/2017 CBC 3810745 Baso Auto 1.3 % 02/28/2017 CBC 4061766 Neutrophil Abs 4.72 10e9/L 02/28/2017 CBC 3412957 Lymphocyte Abs 1.54 10e9/L 02/28/2017 CBC 5848161 Monocyte Abs 0.71 10e9/L 02/28/2017 CBC 1531241 Eosinophil Abs 0.54 10e9/L 02/28/2017 CBC 2000317 Basophil Abs 0.10 10e9/L 02/28/2017 CBC 4624100 RDW-SD 49.0 fL 02/28/2017 LIPID GRP CHOLESTEROL 189 mg/dL 02/28/2017 LIPID GRP Triglyceride 124 mg/dL 02/28/2017 LIPID GRP HDL CHOLESTEROL 43 mg/dL 02/28/2017 LIPID GRP Chol/HDL Ratio 4.40 ratio 02/28/2017 LIPID GRP NON-HDL Chol 146 mg/dL 02/28/2017 LIPID GRP LDL Cholesterol 121 mg/dL 02/28/2017 A1C HPLC 6380505 Hgb A1c 85353-5 7.5 % 02/28/2017 GFR CALC 8698587 GFR Non Afr Amr >60 mL/min 02/28/2017 GFR CALC 6129669 GFR Afr Amr >60 mL/min 02/28/2017 CHEM 14 4602426 AST 15 U/L 02/28/2017 CHEM 14 0333907 ALT 16 U/L 02/28/2017 CHEM 14 6344139 BUN 18 mg/dL 02/28/2017 CHEM 14 6203701 ALBUMIN 4.0 g/dL 02/28/2017 CHEM 14 3543997 CHLORIDE 104 mmol/L 02/28/2017 CHEM 14 1390634 Bili Total 0.6 mg/dL 02/28/2017 CHEM 14 1264009 ALK PHOS 53 U/L 02/28/2017 CHEM 14 8643677 SODIUM 143 mmol/L 02/28/2017 CHEM 14 6415296 CREATININE 0.66 mg/dL 02/28/2017 CHEM 14 7403367 CALCIUM 9.2 mg/dL 02/28/2017 CHEM 14 5372286 POTASSIUM 3.9 mmol/L 02/28/2017 CHEM 14 7700471 TOTAL PROTEIN 6.6 g/dL 02/28/2017 CHEM 14 5649016 GLUCOSE 146 mg/dL 02/28/2017 CHEM 14 5610482 Bicarbonate 30 mmol/L 02/28/2017 CHEM 14 3666459 AGAP 9 mmol/L 02/28/2017 CBC 8276074 WBC 6.8 10e9/L 08/21/2016 CBC 4859614 RBC 4.87 10e12/L 08/21/2016 CBC 5829513 HEMOGLOBIN 12.7 g/dL 08/21/2016 CBC 0014972 HEMATOCRIT 40.5 % 08/21/2016 CBC 2264767 MCV 83.2 fL 08/21/2016 CBC 0142855 MCH 26.1 pg 08/21/2016 CBC 4007677 MCHC 31.4 g/dL 08/21/2016 CBC 3399376 PLATELET COUNT 334 10e9/L 08/21/2016 CBC 1782147 Mean Plt Volume 10.5 fL 08/21/2016 CBC 1159004 Neut Auto 56.4 % 08/21/2016 CBC 6371660 Lymph Auto 23.5 % 08/21/2016 CBC 7787396 [place] Auto 9.7 % 08/21/2016 CBC 3849086 Eos Auto 9.5 % 08/21/2016 CBC 7549703 RDW 16.6 % 08/21/2016 CBC 8341083 Baso Auto 0.9 % 08/21/2016 CBC 9439964 Neutrophil Abs 3.84 10e9/L 08/21/2016 CBC 8117546 Lymphocyte Abs 1.60 10e9/L 08/21/2016 CBC 0416002 Monocyte Abs 0.66 10e9/L 08/21/2016 CBC 4159452 Eosinophil Abs 0.65 10e9/L 08/21/2016 CBC 6887687 RDW-SD 49.7 fL 08/21/2016 CBC 0165338 Basophil Abs 0.06 10e9/L 08/21/2016 FREE T4 1393747 T4 Free 1.39 ng/dL 08/21/2016 LIPID GRP CHOLESTEROL 211 mg/dL 08/21/2016 LIPID GRP Triglyceride 105 mg/dL 08/21/2016 LIPID GRP HDL CHOLESTEROL 45 mg/dL 08/21/2016 LIPID GRP Chol/HDL Ratio 4.69 ratio 08/21/2016 LIPID GRP NON-HDL Chol 166 mg/dL 08/21/2016 LIPID GRP LDL Cholesterol 145 mg/dL 08/21/2016 A1C HPLC 2936534 Hgb A1c 27845-7 7.4 % 08/21/2016 GFR CALC 8863736 GFR Non Afr Amr >60 mL/min 08/21/2016 GFR CALC 4859633 GFR Afr Amr >60 mL/min 08/21/2016 CHEM 14 6797480 AST 16 U/L 08/21/2016 CHEM 14 7236814 ALT 14 U/L 08/21/2016 CHEM 14 3173337 BUN 14 mg/dL 08/21/2016 CHEM 14 3686800 ALBUMIN 4.1 g/dL 08/21/2016 CHEM 14 1428699 CHLORIDE 105 mmol/L 08/21/2016 CHEM 14 1765630 Bili Total 0.5 mg/dL 08/21/2016 CHEM 14 7829124 ALK PHOS 53 U/L 08/21/2016 CHEM 14 6754022 SODIUM 141 mmol/L 08/21/2016 CHEM 14 9914240 CREATININE 0.66 mg/dL 08/21/2016 CHEM 14 5828682 CALCIUM 9.3 mg/dL 08/21/2016 CHEM 14 9109798 POTASSIUM 4.0 mmol/L 08/21/2016 CHEM 14 4997389 TOTAL PROTEIN 6.6 g/dL 08/21/2016 CHEM 14 4049312 GLUCOSE 145 mg/dL 08/21/2016 CHEM 14 6026961 Bicarbonate 29 mmol/L 08/21/2016 CHEM 14 1763616 AGAP 7 mmol/L 08/21/2016 TSH 7760984 TSH 1.485 uIU/mL 08/21/2016 MEAN GLUC 0192470 Calc Mean Gluc 166 mg/dL 08/21/2016 Cbc [...] 82.2 fl 04/24/2016 Cbc With Differential Ord2 [place]% 10.9 % 04/24/2016 Cbc With Differential Ord2 [...] 1.49 K/ul 04/24/2016 Cbc With Differential Ord2 [place] ABS# 0.7 K/ul 04/24/2016 Cbc With Differential Ord2 Eos ABS# 0.7 K/ul 04/24/2016 Cbc With Differential Ord2 Baso ABS# 0.1 K/ul 04/24/2016 Comp Metabolic Jdg812 NA 138 mEq/L 04/24/2016 Comp Metabolic Lon078 K 4.3 mEq/L 04/24/2016 Comp Metabolic Sum865 CL 103 mEq/L 04/24/2016 Comp Metabolic Hzf452 CO2 28.0 mEq/L 04/24/2016 Comp Metabolic Xpe974 ANION GAP 11 04/24/2016 Comp Metabolic Ovj796 GLUCOSE 138 mg/dL 04/24/2016 Comp Metabolic Ukg925 Creat 0.6 mg/dL 04/24/2016 Comp Metabolic Bep455 eGFR 98 ml/min/1.73m2 04/24/2016 Comp Metabolic Oxz951 BUN 16 mg/dL 04/24/2016 Comp Metabolic Ymv079 B/C Ratio 25.4 Ratio 04/24/2016 Comp Metabolic Qyh941 CALCIUM 9.2 mg/dL 04/24/2016 Comp Metabolic Tpk893 ALK PHOS 55 U/L 04/24/2016 Comp Metabolic Nwo008 AST(SGOT) 16 U/L 04/24/2016 Comp Metabolic Sxd359 ALT(SGPT) 16 U/L 04/24/2016 Comp Metabolic Dcm933 BILI T 0.6 mg/dL 04/24/2016 Comp Metabolic Lsg800 ALBUMIN 3.9 g/dL 04/24/2016 Comp Metabolic Jzw696 TPRO 6.1 g/dL 04/24/2016 Comp Metabolic Ndt350 GLOB 2.2 g/dL 04/24/2016 Comp Metabolic Vxd030 A/G Ratio 1.7 Ratio 04/24/2016 Comp Metabolic Fdg142 Osmo 279 mOsmo 04/24/2016 Lipid Ord30 CHOL 208 mg/dL 04/24/2016 Lipid Ord30 HDL 42.0 mg/dl 04/24/2016 Lipid Ord30 TRIG 98 mg/dL 04/24/2016 Lipid Ord30 LDL 146 mg/dL 04/24/2016 Lipid Ord30 C/HDL 5.0 Ratio 04/24/2016 %Hba1C Gyj388 % HbA1c 14408- 6 7.5 % 04/24/2016 %Hba1C Sqv742 Gluc Ave 169 mg/dL 04/24/2016 Tsh Ord6 hTSH II 0.82 uIU/mL 04/24/2016 Free T4 Uls960 FREE T4 1.17 ng/dL 04/24/2016 Digoxin Ord9 DIGOXIN 0.9 NG/ML 02/03/2016 Free T4 Kcf383 FREE T4 1.17 ng/dL 12/07/2015 %Hba1C Qgk135 % HbA1c 00127- 6 7.5 % 12/07/2015 %Hba1C Svs380 Gluc Ave 169 mg/dL 12/07/2015 Tsh Ord6 [...] 25.5 pg 12/07/2015 Cbc With Differential Ord2 [place]% 9.3 % 12/07/2015 Cbc With Differential Ord2 Eos% 3.9 % 12/07/2015 Cbc With Differential Ord2 MCHC 30.7 pg 12/07/2015 Cbc With Differential Ord2 PLT 346 K/ul 12/07/2015 Cbc With Differential Ord2 Baso% 0.7 % 12/07/2015 Cbc With Differential Ord2 Neut ABS# 5.17 K/ul 12/07/2015 Cbc With Differential Ord2 RDW 16.9 % 12/07/2015 Cbc With Differential Ord2 Lymph ABS# 1.23 K/ul 12/07/2015 Cbc With Differential Ord2 [place] ABS# 0.7 K/ul 12/07/2015 Cbc With Differential Ord2 Eos ABS# 0.3 K/ul 12/07/2015 Cbc With Differential Ord2 Baso ABS# 0.1 K/ul 12/07/2015 Lipid Ord30 CHOL 196 mg/dL 12/07/2015 Lipid Ord30 HDL 41.0 mg/dl 12/07/2015 Lipid Ord30 TRIG 142 mg/dL 12/07/2015 Lipid Ord30 LDL 127 mg/dL 12/07/2015 Lipid Ord30 C/HDL 4.8 Ratio 12/07/2015 Comp Metabolic Lva113 NA 139 mEq/L 12/07/2015 Comp Metabolic Xcl489 K 4.3 mEq/L 12/07/2015 Comp Metabolic Brc136 CL 101 mEq/L 12/07/2015 Comp Metabolic Skn903 CO2 33.0 mEq/L 12/07/2015 Comp Metabolic Khw913 ANION GAP 9 12/07/2015 Comp Metabolic Tya361 GLUCOSE 159 mg/dL 12/07/2015 Comp Metabolic Xdh743 Creat 0.6 mg/dL 12/07/2015 Comp Metabolic Upo749 eGFR 108 ml/min/1.73m2 12/07/2015 Comp Metabolic Dbp071 BUN 13 mg/dL 12/07/2015 Comp Metabolic Wlq368 B/C Ratio 22.4 Ratio 12/07/2015 Comp Metabolic Gqg606 CALCIUM 9.0 mg/dL 12/07/2015 Comp Metabolic Itl442 ALK PHOS 60 U/L 12/07/2015 Comp Metabolic Kdj308 AST(SGOT) 16 U/L 12/07/2015 Comp Metabolic Eqx770 ALT(SGPT) 19 U/L 12/07/2015 Comp Metabolic Idt053 BILI T 0.6 mg/dL 12/07/2015 Comp Metabolic Vkm490 ALBUMIN 4.0 g/dL 12/07/2015 Comp Metabolic Eib523 TPRO 6.0 g/dL 12/07/2015 Comp Metabolic Tkf526 GLOB 2.0 g/dL 12/07/2015 Comp Metabolic Ngw703 A/G Ratio 1.9 Ratio 12/07/2015 Comp Metabolic Sdr009 Osmo 281 mOsmo 12/07/2015 Cbc With Differential [...] Ord6 hTSH II 1.10 uIU/mL 06/14/2015 %Hba1C Abd266 % HbA1c 09955- 6 6.8 % 06/14/2015 %Hba1C Jyc498 Gluc Ave 148 mg/dL 06/14/2015 Free T4 Dus662 FREE T4 1.31 ng/dL 06/14/2015 CHEM 14 8496706 AST 14 U/L 12/07/2014 CHEM 14 6399865 ALT 12 IU/L 12/07/2014 CHEM 14 7265086 BUN 12 MG/DL 12/07/2014 CHEM 14 1392400 ALBUMIN 3.9 GM/DL 12/07/2014 CHEM 14 1740832 CHLORIDE 103 MMOL/L 12/07/2014 CHEM 14 9723966 BILI TOT 0.6 MG/DL 12/07/2014 CHEM 14 9625185 ALK PHOS 49 U/L 12/07/2014 CHEM 14 0102870 SODIUM 140 MMOL/L 12/07/2014 CHEM 14 7936482 CREATININE 0.57 MG/DL 12/07/2014 CHEM 14 4004862 CALCIUM 9.5 MG/DL 12/07/2014 CHEM 14 7003647 POTASSIUM 4.0 MMOL/L 12/07/2014 CHEM 14 6028292 PROT TOT 6.5 GM/DL 12/07/2014 CHEM 14 0379856 GLUCOSE 110 MG/DL 12/07/2014 CHEM 14 8165437 BICARB 29 MMOL/L 12/07/2014 CHEM 14 0309823 ANION GAP 8 MEQ/L 12/07/2014 A1C HPLC 2576613 A1C HPLC 44637-4 6.4 % 12/07/2014 TSH 3260605 TSH 1.106 uIU/ML 12/07/2014 LIPID GRP HDL TEST 46 MG/DL 12/07/2014 LIPID GRP 7566863 TRIG 119 MG/DL 12/07/2014 LIPID GRP TEST LDL 108 MG/DL 12/07/2014 LIPID GRP CHOL 178 MG/DL 12/07/2014 LIPID GRP RCHOL/HDL 3.87 RATIO 12/07/2014 LIPID GRP NON-HDL CH 132 MG/DL 12/07/2014 CBC 6340314 WBC 6.4 10e9/L 12/07/2014 CBC 5589067 RBC 4.51 10e12/L 12/07/2014 CBC 4237180 HGB 12.2 g/dL 12/07/2014 CBC 8938798 HCT DET 39.0 % 12/07/2014 CBC 9693785 MCV 86.5 fL 12/07/2014 CBC 4357767 MCH 27.1 pg 12/07/2014 CBC 0004316 MCHC 31.3 g/dL 12/07/2014 CBC 9690778 PLT 325 10e9/L 12/07/2014 CBC 0335984 MPV 10.4 fL 12/07/2014 CBC 8315385 TIM % 62.0 % 12/07/2014 CBC 6699557 LY % 21.4 % 12/07/2014 CBC 7323347 MON % 9.5 % 12/07/2014 CBC 6584408 EOS % 6.3 % 12/07/2014 CBC 8874719 BASO % 0.8 % 12/07/2014 CBC 0430565 RDW 15.8 % 12/07/2014 CBC 9978508 ABS TIM 3.97 10e9/L 12/07/2014 CBC 0622283 ABS LYMPH 1.37 10e9/L 12/07/2014 CBC 8270111 ABS MONO 0.61 10e9/L 12/07/2014 CBC 0819856 ABS EOS 0.40 10e9/L 12/07/2014 CBC 3787633 ABS BASO 0.05 10e9/L 12/07/2014 CBC 2475297 RDW-SD 48.8 fL 12/07/2014 FREE T4 2868451 FREE T4 1.37 NG/DL 12/07/2014 GFR CALC 0854650 GFR AA >60 ML/MIN 12/07/2014 GFR CALC 5968369 GFR NON-AA >60 ML/MIN 12/07/2014 CHEM 14 20280111 AST 17 U/L 11/04/2013 CHEM 14 20280111 ALT 16 IU/L 11/04/2013 CHEM 14 7856128 BUN 13 MG/DL 11/04/2013 CHEM 14 7355649 ALBUMIN 4.3 GM/DL 11/04/2013 CHEM 14 2375107 CHLORIDE 104 MMOL/L 11/04/2013 CHEM 14 2633990 BILI TOT 0.7 MG/DL 11/04/2013 CHEM 14 4022580 ALK PHOS 67 U/L 11/04/2013 CHEM 14 2115789 SODIUM 140 MMOL/L 11/04/2013 CHEM 14 4302660 CREATININE 0.64 MG/DL 11/04/2013 CHEM 14 7902406 CALCIUM 9.5 MG/DL 11/04/2013 CHEM 14 7753038 POTASSIUM 4.0 MMOL/L 11/04/2013 CHEM 14 7362104 PROT TOT 6.1 GM/DL 11/04/2013 CHEM 14 8699756 GLUCOSE 157 MG/DL 11/04/2013 CHEM 14 9485138 BICARB 27 MMOL/L 11/04/2013 CHEM 14 3002455 ANION GAP 9 MEQ/L 11/04/2013 FREE T4 0377687 FREE T4 1.44 NG/DL 11/04/2013 GFR CALC 7008424 GFR AA >60 ML/MIN 11/04/2013 GFR CALC 6247589 GFR NON-AA >60 ML/MIN 11/04/2013 TSH 4168366 TSH 0.841 uIU/ML 11/04/2013 A1C HPLC 1438776 A1C HPLC 03163-8 7.2 % 11/04/2013 LIPID GRP HDL TEST 45 MG/DL 11/04/2013 LIPID GRP TRIG 104 MG/DL 11/04/2013 LIPID GRP TEST LDL 82 MG/DL 11/04/2013 LIPID GRP CHOL 148 MG/DL 11/04/2013 LIPID GRP RCHOL/HDL 3.29 RATIO 11/04/2013 CBC 6049066 WBC 6.2 10e9/L 11/04/2013 CBC 1876127 RBC 4.38 10e12/L 11/04/2013 CBC 4315110 HGB 11.8 g/dL 11/04/2013 CBC 5931788 HCT DET 37.5 % 11/04/2013 CBC 4749025 MCV 85.6 fL 11/04/2013 CBC 5272105 MCH 26.9 pg 11/04/2013 CBC 3484853 MCHC 31.5 g/dL 11/04/2013 CBC 4801796 PLT 330 10e9/L 11/04/2013 CBC 1351191 MPV 10.6 fL 11/04/2013 CBC 5967529 TIM % 60.8 % 11/04/2013 CBC 3097882 LY % 22.1 % 11/04/2013 CBC 8182480 MON % 9.6 % 11/04/2013 CBC 6363331 EOS % 6.4 % 11/04/2013 CBC 5011194 BASO % 1.1 % 11/04/2013 CBC 3703864 RDW 15.6 % 11/04/2013 CBC 4865350 ABS TIM 3.77 10e9/L 11/04/2013 CBC 6008955 ABS LYMPH 1.37 10e9/L 11/04/2013 CBC 5013458 ABS MONO 0.60 10e9/L 11/04/2013 CBC 0776090 ABS EOS 0.40 10e9/L 11/04/2013 CBC 5300694 ABS BASO 0.07 10e9/L 11/04/2013 CBC 2113315 RDW-SD 48.0 fL 11/04/2013 DIGOXIN 6947666 DIGOXIN 0.5 NG/ML 11/04/2013 A1C HPLC 2578724 A1C HPLC 14958-2 7.6 % 07/28/2013 LIPID GRP HDL TEST 38 MG/DL 07/28/2013 LIPID GRP TRIG 137 MG/DL 07/28/2013 LIPID GRP 4868385 TEST LDL 73 MG/DL 07/28/2013 LIPID GRP CHOL 138 MG/DL 07/28/2013 LIPID GRP RCHOL/HDL 3.63 RATIO 07/28/2013 LIVER PNL 2060163 BILI DIR 0.2 MG/DL 07/28/2013 DIGOXIN 0621977 DIGOXIN 0.4 NG/ML 07/28/2013 CBC 1942248 WBC 7.2 10e9/L 07/28/2013 CBC 6288704 RBC 4.65 10e12/L 07/28/2013 CBC 0549693 HGB 12.6 g/dL 07/28/2013 CBC 5204537 HCT DET 39.6 % 07/28/2013 CBC 1870268 MCV 85.2 fL 07/28/2013 CBC 5348654 MCH 27.1 pg 07/28/2013 CBC 8009102 MCHC 31.8 g/dL 07/28/2013 CBC 0105457 PLT 344 10e9/L 07/28/2013 CBC 8500869 MPV 10.7 fL 07/28/2013 CBC 9558759 TIM % 61.4 % 07/28/2013 CBC 3397288 LY % 22.4 % 07/28/2013 CBC 6260040 MON % 8.4 % 07/28/2013 CBC 7186352 EOS % 6.8 % 07/28/2013 CBC 2951283 BASO % 1.0 % 07/28/2013 CBC 7717848 RDW 15.5 % 07/28/2013 CBC 0359377 ABS TIM 4.42 10e9/L 07/28/2013 CBC 4883198 ABS LYMPH 1.61 10e9/L 07/28/2013 CBC 1836152 ABS MONO 0.60 10e9/L 07/28/2013 CBC 2900175 ABS EOS 0.49 10e9/L 07/28/2013 CBC 7279137 ABS BASO 0.07 10e9/L 07/28/2013 CBC 5228666 RDW-SD 47.2 fL 07/28/2013 GFR CALC 9479399 GFR AA >60 ML/MIN 07/28/2013 GFR CALC 8988735 GFR NON-AA >60 ML/MIN 07/28/2013 CHEM 14 8106546 AST 20 U/L 07/28/2013 CHEM 14 5165600 ALT 19 IU/L 07/28/2013 CHEM 14 7780234 BUN 13 MG/DL 07/28/2013 CHEM 14 5390528 ALBUMIN 4.1 GM/DL 07/28/2013 CHEM 14 2304664 CHLORIDE 102 MMOL/L 07/28/2013 CHEM 14 3215164 BILI TOT 0.7 MG/DL 07/28/2013 CHEM 14 2372631 ALK PHOS 62 U/L 07/28/2013 CHEM 14 3306273 SODIUM 139 MMOL/L 07/28/2013 CHEM 14 2040568 CREATININE 0.66 MG/DL 07/28/2013 CHEM 14 4721085 CALCIUM 9.3 MG/DL 07/28/2013 CHEM 14 7479038 POTASSIUM 4.4 MMOL/L 07/28/2013 CHEM 14 7077727 PROT TOT 6.2 GM/DL 07/28/2013 CHEM 14 3938192 GLUCOSE 160 MG/DL 07/28/2013 CHEM 14 0794563 BICARB 29 MMOL/L 07/28/2013 CHEM 14 4402333 ANION GAP 8 MEQ/L 07/28/2013 DIGOXIN 8131732 DIGOXIN 0.6 NG/ML 05/12/2013 GFR CALC 2215568 GFR AA >60 ML/MIN 04/29/2013 GFR CALC 7784503 GFR NON-AA >60 ML/MIN 04/29/2013 A1C 1843639 A1C HPLC 74950- 6 7.5 % 04/29/2013 TSH 8272516 TSH 1.161 uIU/ML 04/29/2013 CHEM 14 4557051 AST 14 U/L 04/29/2013 CHEM 14 5649368 ALT 14 IU/L 04/29/2013 CHEM 14 1961735 BUN 13 MG/DL 04/29/2013 CHEM 14 0660076 ALBUMIN 4.1 GM/DL 04/29/2013 CHEM 14 0053466 CHLORIDE 102 MMOL/L 04/29/2013 CHEM 14 4343917 BILI TOT 0.7 MG/DL 04/29/2013 CHEM 14 5219378 ALK PHOS 75 U/L 04/29/2013 CHEM 14 5346992 SODIUM 139 MMOL/L 04/29/2013 CHEM 14 1969976 CREATININE 0.62 MG/DL 04/29/2013 CHEM 14 5633750 CALCIUM 9.3 MG/DL 04/29/2013 CHEM 14 7119676 POTASSIUM 4.0 MMOL/L 04/29/2013 CHEM 14 1711971 PROT TOT 6.5 GM/DL 04/29/2013 CHEM 14 9401785 GLUCOSE 152 MG/DL 04/29/2013 CHEM 14 1080701 BICARB 31 MMOL/L 04/29/2013 CHEM 14 2112968 ANION GAP 6 MEQ/L 04/29/2013 CBC 2417030 WBC 7.4 10e9/L 04/29/2013 CBC 0333436 RBC 4.70 10e12/L 04/29/2013 CBC 3026061 HGB 12.8 g/dL 04/29/2013 CBC 7362503 HCT DET 40.1 % 04/29/2013 CBC 8691071 MCV 85.3 fL 04/29/2013 CBC 3701275 MCH 27.2 pg 04/29/2013 CBC 1978825 MCHC 31.9 g/dL 04/29/2013 CBC 3380913 PLT 312 10e9/L 04/29/2013 CBC 8940998 MPV 10.4 fL 04/29/2013 CBC 4016710 TIM % 64.9 % 04/29/2013 CBC 8275521 LY % 20.0 % 04/29/2013 CBC 0640613 MON % 8.6 % 04/29/2013 CBC 7773037 EOS % 5.3 % 04/29/2013 CBC 4230002 BASO % 1.2 % 04/29/2013 CBC 0146599 RDW 15.4 % 04/29/2013 CBC 3460908 ABS TIM 4.80 10e9/L 04/29/2013 CBC 1295907 ABS LYMPH 1.48 10e9/L 04/29/2013 CBC 2124141 ABS MONO 0.64 10e9/L 04/29/2013 CBC 9753814 ABS EOS 0.39 10e9/L 04/29/2013 CBC 8772848 ABS BASO 0.09 10e9/L 04/29/2013 CBC 1983641 RDW-SD 47.3 fL 04/29/2013 LIPID GRP HDL TEST 43 MG/DL 04/29/2013 LIPID GRP TRIG 111 MG/DL 04/29/2013 LIPID GRP TEST LDL 65 MG/DL 04/29/2013 LIPID GRP CHOL 130 MG/DL 04/29/2013 LIPID GRP RCHOL/HDL 3.02 RATIO 04/29/2013 TSH 0318380 TSH 1.406 uIU/ML 12/28/2012 A1C 4387375 A1C HPLC 52079- 6 7.2 % 12/28/2012 LIPID GRP HDL TEST 54 MG/DL 12/27/2012 LIPID GRP TRIG 94 MG/DL 12/27/2012 LIPID GRP TEST LDL 42 MG/DL 12/27/2012 LIPID GRP CHOL 115 MG/DL 12/27/2012 LIPID GRP RCHOL/HDL 2.13 RATIO 12/27/2012 GFR CALC 1242483 GFR AA >60 ML/MIN 12/27/2012 GFR CALC 4677095 GFR NON-AA >60 ML/MIN 12/27/2012 CHEM 14 20280111 AST 14 U/L 12/27/2012 CHEM 14 20280111 ALT 13 IU/L 12/27/2012 CHEM 14 20280111 BUN 13 MG/DL 12/27/2012 CHEM 14 20280111 ALBUMIN 4.5 GM/DL 12/27/2012 CHEM 14 20280111 CHLORIDE 105 MMOL/L 12/27/2012 CHEM 14 20280111 BILI TOT 0.8 MG/DL 12/27/2012 CHEM 14 8812910 ALK PHOS 69 U/L 12/27/2012 CHEM 14 9926345 SODIUM 142 MMOL/L 12/27/2012 CHEM 14 5296191 CREATININE 0.73 MG/DL 12/27/2012 CHEM 14 2519889 CALCIUM 9.7 MG/DL 12/27/2012 CHEM 14 5190840 POTASSIUM 4.1 MMOL/L 12/27/2012 CHEM 14 8638354 PROT TOT 6.8 GM/DL 12/27/2012 CHEM 14 3844711 GLUCOSE 133 MG/DL 12/27/2012 CHEM 14 7173938 BICARB 30 MMOL/L 12/27/2012 CHEM 14 0743950 ANION GAP 7 MEQ/L 12/27/2012 CBC 0843489 WBC 6.8 10e9/L 12/27/2012 CBC 1215187 RBC 4.72 10e12/L 12/27/2012 CBC 0257982 HGB 12.5 g/dL 12/27/2012 CBC 4705931 HCT DET 39.6 % 12/27/2012 CBC 9185117 MCV 83.9 fL 12/27/2012 CBC 2815433 MCH 26.5 pg 12/27/2012 CBC 6844586 MCHC 31.6 g/dL 12/27/2012 CBC 9062808 PLT 336 10e9/L 12/27/2012 CBC 4502414 MPV 10.4 fL 12/27/2012 CBC 9811974 TIM % 60.7 % 12/27/2012 CBC 6386314 LY % 24.6 % 12/27/2012 CBC 9412797 MON % 8.4 % 12/27/2012 CBC 5022898 EOS % 5.3 % 12/27/2012 CBC 1024006 BASO % 1.0 % 12/27/2012 CBC 5104066 RDW 16.6 % 12/27/2012 CBC 5203727 ABS TIM 4.13 10e9/L 12/27/2012 CBC 6680783 ABS LYMPH 1.67 10e9/L 12/27/2012 CBC 5482883 ABS MONO 0.57 10e9/L 12/27/2012 CBC 8546068 ABS EOS 0.36 10e9/L 12/27/2012 CBC 3557118 ABS BASO 0.07 10e9/L 12/27/2012 CBC 8132241 RDW-SD 50.1 fL 12/27/2012 GFR CALC 4716557 GFR AA >60 ML/MIN 08/27/2012 GFR CALC 9069224 GFR NON-AA >60 ML/MIN 08/27/2012 CHEM 14 5221687 AST 15 U/L 08/27/2012 CHEM 14 3651566 ALT 17 IU/L 08/27/2012 CHEM 14 4250459 BUN 14 MG/DL 08/27/2012 CHEM 14 1862893 ALBUMIN 4.2 GM/DL 08/27/2012 CHEM 14 6488069 CHLORIDE 103 MMOL/L 08/27/2012 CHEM 14 2355484 BILI TOT 0.6 MG/DL 08/27/2012 CHEM 14 4449629 ALK PHOS 86 U/L 08/27/2012 CHEM 14 2045354 SODIUM 141 MMOL/L 08/27/2012 CHEM 14 7788362 CREATININE 0.64 MG/DL 08/27/2012 CHEM 14 8745881 CALCIUM 9.5 MG/DL 08/27/2012 CHEM 14 8979174 POTASSIUM 4.1 MMOL/L 08/27/2012 CHEM 14 4472210 PROT TOT 6.1 GM/DL 08/27/2012 CHEM 14 9965906 GLUCOSE 151 MG/DL 08/27/2012 CHEM 14 2614688 BICARB 30 MMOL/L 08/27/2012 CHEM 14 3326186 ANION GAP 8 MEQ/L 08/27/2012 FREE T4 6789710 FREE T4 1.36 NG/DL 08/27/2012 CBC 0693558 WBC 7.8 10e9/L 08/27/2012 CBC 2888760 RBC 4.54 10e12/L 08/27/2012 CBC 5738096 HGB 12.0 g/dL 08/27/2012 CBC 0638637 HCT DET 37.9 % 08/27/2012 CBC 6553964 MCV 83.5 fL 08/27/2012 CBC 3302486 MCH 26.4 pg 08/27/2012 CBC 0042513 MCHC 31.7 g/dL 08/27/2012 CBC 4358661 PLT 370 10e9/L 08/27/2012 CBC 7754213 MPV 10.7 fL 08/27/2012 CBC 4131793 TIM % 65.7 % 08/27/2012 CBC 2264956 LY % 19.5 % 08/27/2012 CBC 2028202 MON % 9.0 % 08/27/2012 CBC 4045325 EOS % 5.0 % 08/27/2012 CBC 7026112 BASO % 0.8 % 08/27/2012 CBC 5215780 RDW 15.4 % 08/27/2012 CBC 8973479 ABS TIM 5.12 10e9/L 08/27/2012 CBC 1142384 ABS LYMPH 1.52 10e9/L 08/27/2012 CBC 9595385 ABS MONO 0.70 10e9/L 08/27/2012 CBC 3607943 ABS EOS 0.39 10e9/L 08/27/2012 CBC 5724446 ABS BASO 0.06 10e9/L 08/27/2012 CBC 5447809 RDW-SD 46.3 fL 08/27/2012 A1C HPLC 4435797 A1C HPLC 39586-3 7.3 % 08/27/2012 LIPID GRP HDL TEST 41 MG/DL 08/27/2012 LIPID GRP TRIG 120 MG/DL 08/27/2012 LIPID GRP TEST LDL 67 MG/DL 08/27/2012 LIPID GRP CHOL 132 MG/DL 08/27/2012 LIPID GRP RCHOL/HDL 3.22 RATIO 08/27/2012 TSH 9051272 TSH 0.933 uIU/ML 08/27/2012 DIGOXIN 5130396 DIGOXIN 1.4 NG/ML 07/15/2012 CBC 9095537 WBC 6.3 10e9/L 07/15/2012 CBC 7545300 RBC 4.44 10e12/L 07/15/2012 CBC 4941923 HGB 11.8 g/dL 07/15/2012 CBC 2257132 HCT DET 36.9 % 07/15/2012 CBC 4025034 MCV 83.1 fL 07/15/2012 CBC 3049687 MCH 26.6 pg 07/15/2012 CBC 5245261 MCHC 32.0 g/dL 07/15/2012 CBC 1219809 PLT 316 10e9/L 07/15/2012 CBC 3750816 MPV 10.3 fL 07/15/2012 CBC 7288349 TIM % 64.4 % 07/15/2012 CBC 9255044 LY % 19.6 % 07/15/2012 CBC 3189521 MON % 9.1 % 07/15/2012 CBC 8353158 EOS % 6.1 % 07/15/2012 CBC 8244380 BASO % 0.8 % 07/15/2012 CBC 3091899 RDW 15.3 % 07/15/2012 CBC 9947595 ABS TIM 4.06 10e9/L 07/15/2012 CBC 2264836 ABS LYMPH 1.23 10e9/L 07/15/2012 CBC 1466707 ABS MONO 0.57 10e9/L 07/15/2012 CBC 3350121 ABS EOS 0.38 10e9/L 07/15/2012 CBC 9285796 ABS BASO 0.05 10e9/L 07/15/2012 CBC 1513700 RDW-SD 46.2 fL 07/15/2012 DIGOXIN 0336721 DIGOXIN 1.4 NG/ML 07/04/2012 BMP 6568035 GLUCOSE 137 MG/DL 07/04/2012 BMP 4087430 CREATININE 0.86 MG/DL 07/04/2012 BMP 5099762 BUN 14 MG/DL 07/04/2012 BMP 6268636 SODIUM 140 MMOL/L 07/04/2012 BMP 1427773 POTASSIUM 4.5 MMOL/L 07/04/2012 BMP 7285038 CHLORIDE 103 MMOL/L 07/04/2012 BMP 1430939 BICARB 28 MMOL/L 07/04/2012 BMP 8785672 ANION GAP 9 MEQ/L 07/04/2012 BMP 7472332 CALCIUM 9.7 MG/DL 07/04/2012 CBC 4889041 WBC 6.9 10e9/L 07/04/2012 CBC 5689263 RBC 4.56 10e12/L 07/04/2012 CBC 8668651 HGB 12.2 g/dL 07/04/2012 CBC 0969757 HCT DET 38.1 % 07/04/2012 CBC 1877389 MCV 83.6 fL 07/04/2012 CBC 5507648 MCH 26.8 pg 07/04/2012 CBC 9952971 MCHC 32.0 g/dL 07/04/2012 CBC 8236527 PLT 382 10e9/L 07/04/2012 CBC 2804320 MPV 10.6 fL 07/04/2012 CBC 3904167 TIM % 58.7 % 07/04/2012 CBC 3611261 LY % 23.7 % 07/04/2012 CBC 8714092 MON % 10.2 % 07/04/2012 CBC 6604308 EOS % 6.4 % 07/04/2012 CBC 4785927 BASO % 1.0 % 07/04/2012 CBC 2706799 RDW 15.8 % 07/04/2012 CBC 3793376 ABS TIM 4.05 10e9/L 07/04/2012 CBC 4889490 ABS LYMPH 1.64 10e9/L 07/04/2012 CBC 1624393 ABS MONO 0.70 10e9/L 07/04/2012 CBC 4708000 ABS EOS 0.44 10e9/L 07/04/2012 CBC 2072735 ABS BASO 0.07 10e9/L 07/04/2012 CBC 9005481 RDW-SD 47.5 fL 07/04/2012 GFR CALC 8455139 GFR AA >60 ML/MIN 07/04/2012 GFR CALC 4976190 GFR NON-AA >60 ML/MIN 07/04/2012 A1C HPLC 4961338 A1C HPLC 37416-3 7.1 % 03/27/2012 GFR CALC 2903958 GFR AA >60 ML/MIN 03/26/2012 GFR CALC 2172301 GFR NON-AA >60 ML/MIN 03/26/2012 LIPID GRP HDL TEST 40 MG/DL 03/26/2012 LIPID GRP TRIG 93 MG/DL 03/26/2012 LIPID GRP TEST LDL 62 MG/DL 03/26/2012 LIPID GRP CHOL 121 MG/DL 03/26/2012 LIPID GRP RCHOL/HDL 3.03 RATIO 03/26/2012 TSH 9868947 TSH 0.842 uIU/ML 03/26/2012 FREE T4 0794710 FREE T4 1.30 NG/DL 03/26/2012 CBC 6293590 WBC 5.3 10e9/L 03/26/2012 CBC 0997712 RBC 4.70 10e12/L 03/26/2012 CBC 3644020 HGB 12.1 g/dL 03/26/2012 CBC 1754495 HCT DET 38.1 % 03/26/2012 CBC 3578684 MCV 81.1 fL 03/26/2012 CBC 1464559 MCH 25.7 pg 03/26/2012 CBC 2439884 MCHC 31.8 g/dL 03/26/2012 CBC 6420524 PLT 315 10e9/L 03/26/2012 CBC 0411951 MPV 10.9 fL 03/26/2012 CBC 7353206 TIM % 54.8 % 03/26/2012 CBC 7887030 LY % 25.8 % 03/26/2012 CBC 7419966 MON % 11.6 % 03/26/2012 CBC 4812988 EOS % 7.0 % 03/26/2012 CBC 4515724 BASO % 0.8 % 03/26/2012 CBC 9104351 RDW 16.7 % 03/26/2012 CBC 0742418 ABS TIM 2.90 10e9/L 03/26/2012 CBC 2208320 ABS LYMPH 1.37 10e9/L 03/26/2012 CBC 6288114 ABS MONO 0.61 10e9/L 03/26/2012 CBC 6632604 ABS EOS 0.37 10e9/L 03/26/2012 CBC 3323603 ABS BASO 0.04 10e9/L 03/26/2012 CBC 8297441 RDW-SD 48.8 fL 03/26/2012 CHEM 14 6212800 AST 18 U/L 03/26/2012 CHEM 14 7438365 ALT 17 IU/L 03/26/2012 CHEM 14 8864802 BUN 16 MG/DL 03/26/2012 CHEM 14 5197672 ALBUMIN 4.3 GM/DL 03/26/2012 CHEM 14 4887727 CHLORIDE 103 MMOL/L 03/26/2012 CHEM 14 8733056 BILI TOT 0.9 MG/DL 03/26/2012 CHEM 14 7676366 ALK PHOS 79 U/L 03/26/2012 CHEM 14 5430217 SODIUM 140 MMOL/L 03/26/2012 CHEM 14 8616091 CREATININE 0.70 MG/DL 03/26/2012 CHEM 14 2713507 CALCIUM 9.6 MG/DL 03/26/2012 CHEM 14 8536888 POTASSIUM 4.1 MMOL/L 03/26/2012 CHEM 14 9562251 PROT TOT 6.3 GM/DL 03/26/2012 CHEM 14 3779586 GLUCOSE 142 MG/DL 03/26/2012 CHEM 14 1477447 BICARB 29 MMOL/L 03/26/2012 CHEM 14 6267176 ANION GAP 8 MEQ/L 03/26/2012 LIPID GRP HDL TEST 42 MG/DL 01/08/2012 LIPID GRP TRIG 105 MG/DL 01/08/2012 LIPID GRP TEST LDL 51 MG/DL 01/08/2012 LIPID GRP CHOL 114 MG/DL 01/08/2012 LIPID GRP RCHOL/HDL 2.71 RATIO 01/08/2012 CHEM 14 1618646 AST 24 U/L 01/08/2012 CHEM 14 4098507 ALT 28 IU/L 01/08/2012 CHEM 14 1787035 BUN 15 MG/DL 01/08/2012 CHEM 14 2387899 ALBUMIN 4.3 GM/DL 01/08/2012 CHEM 14 3220102 CHLORIDE 104 MMOL/L 01/08/2012 CHEM 14 5930721 BILI TOT 0.6 MG/DL 01/08/2012 CHEM 14 7032753 ALK PHOS 83 U/L 01/08/2012 CHEM 14 9987905 SODIUM 141 MMOL/L 01/08/2012 CHEM 14 4524653 CREATININE 0.64 MG/DL 01/08/2012 CHEM 14 0029095 CALCIUM 9.4 MG/DL 01/08/2012 CHEM 14 1210542 POTASSIUM 4.0 MMOL/L 01/08/2012 CHEM 14 0074812 PROT TOT 6.7 GM/DL 01/08/2012 CHEM 14 9614225 GLUCOSE 145 MG/DL 01/08/2012 CHEM 14 5217942 BICARB 28 MMOL/L 01/08/2012 CHEM 14 4227463 ANION GAP 9 MEQ/L 01/08/2012 CBC 0587175 WBC 5.8 10e9/L 01/08/2012 CBC 5285016 RBC 4.36 10e12/L 01/08/2012 CBC 6254919 HGB 11.6 g/dL 01/08/2012 CBC 6798429 HCT DET 37.4 % 01/08/2012 CBC 0455938 MCV 85.8 fL 01/08/2012 CBC 8964027 MCH 26.6 pg 01/08/2012 CBC 0869141 MCHC 31.0 g/dL 01/08/2012 CBC 3247069 PLT 319 10e9/L 01/08/2012 CBC 8442476 MPV 10.5 fL 01/08/2012 CBC 8374119 TIM % 62.2 % 01/08/2012 CBC 6898178 LY % 20.7 % 01/08/2012 CBC 9902537 MON % 9.3 % 01/08/2012 CBC 9915728 EOS % 6.4 % 01/08/2012 CBC 9411111 BASO % 1.4 % 01/08/2012 CBC 4670071 RDW 14.9 % 01/08/2012 CBC 9308316 ABS TIM 3.61 10e9/L 01/08/2012 CBC 8827962 ABS LYMPH 1.20 10e9/L 01/08/2012 CBC 4008559 ABS MONO 0.54 10e9/L 01/08/2012 CBC 9293333 ABS EOS 0.37 10e9/L 01/08/2012 CBC 6936142 ABS BASO 0.08 10e9/L 01/08/2012 CBC 4594645 RDW-SD 44.9 fL 01/08/2012 GFR CALC 8484519 GFR AA >60 ML/MIN 01/08/2012 GFR CALC 3542852 GFR NON-AA >60 ML/MIN 01/08/2012 A1C HPLC 5046180 A1C HPLC 98324-2 7.2 % 01/08/2012 Review of Systems System [...] 08/11/2013 None Full Exam - General 1995 Respiratory auscultation Overall: breath sounds clear bilaterally 08/11/2013 None Full Exam - General 1994 Respiratory respiratory effort/rhythm Overall: no retractions 08/11/2013 None Full Exam - General 1995 Respiratory respiratory effort/rhythm Overall: normal rate 08/11/2013 None Full Exam - General 1994 Cardiovascular auscultation of heart Overall: regular rate 08/11/2013 None Full Exam - General 1994 Cardiovascular auscultation of heart Overall: normal heart sounds 08/11/2013 None Full Exam - General 1994 Abdomen abdominal exam Overall: no tenderness 08/11/2013 None Full Exam - General 1995 Abdomen [...] sounds 09/11/2012 None Full Exam - General 1994 Abdomen abdominal exam Overall: no tenderness 09/11/2012 None Full Exam - General 1994 Abdomen abdominal exam Overall: normal bowel sounds 09/11/2012 None Full Exam - General 1994 Musculoskeletal head and neck Overall: head atraumatic 09/11/2012 None Full Exam - General 1994 Musculoskeletal [...] nourished 07/15/2012 None Full Exam - General 1995 Eyes [...] tenderness 07/15/2012 None Full Exam - General 1995 Constitutional general appearance Overall: well developed 05/02/2012 None Full Exam - General 1994 Constitutional general appearance Overall: in no acute distress 05/02/2012 None Full Exam - General 1995 Constitutional general appearance Overall: well nourished 05/02/2012 [...] accomodation 03/28/2012 None Full Exam - General 1995 Ears/Nose/Throat [...] Codes Date URINALYSIS NONAUTO W/O SCOPE CPT-4: 17121 12/31/2017 OCCULT BLOOD FECES CPT- 4: 24395 11/28/2017 TRIAMCINOLONE ACET INJ NOS CPT-4: J3301 10/30/2017 REMOVAL OF IMPACTED WAX CPT-4: G0268 05/29/2017 THER/PROPH/DIAG INJ SC/IM CPT-4: 64188 05/14/2017 KETOROLAC TROMETHAMINE INJ CPT-4: J1885 05/14/2017 ADMIN INFLUENZA VIRUS VAC CPT-4: G0008 04/30/2017 FLU VACC PRSV FREE INC ANTIG CPT-4: 31862 04/30/2017 THER/PROPH/DIAG INJ SC/IM CPT-4: 22103 03/06/2017 TRIAMCINOLONE ACET INJ NOS CPT-4: J3301 03/06/2017 THER/PROPH/DIAG INJ SC/IM CPT-4: 79591 09/04/2016 TRIAMCINOLONE ACET INJ NOS CPT-4: J3301 09/04/2016 THER/PROPH/DIAG INJ SC/IM CPT-4: 17343 11/11/2015 TRIAMCINOLONE ACET INJ NOS CPT-4: J3301 11/11/2015 TRIAMCINOLONE ACET INJ NOS CPT-4: J3301 10/25/2015 THER/PROPH/DIAG INJ SC/IM CPT-4: 88967 10/25/2015 THER/PROPH/DIAG INJ SC/IM CPT-4: 60083 08/17/2014 TRIAMCINOLONE ACET INJ NOS CPT-4: J3301 08/17/2014 TRIAMCINOLONE ACET INJ NOS CPT-4: J3301 04/13/2014 THER/PROPH/DIAG INJ SC/IM CPT-4: 46283 04/13/2014 ROUTINE VENIPUNCTURE CPT- 4: 79507 11/04/2013 ROUTINE VENIPUNCTURE CPT- 4: 24364 05/12/2013 ADMIN INFLUENZA VIRUS VAC CPT-4: G0008 05/12/2013 FLULAVAL VACC, 3 YRS & >, IM CPT-4: Q2036 05/12/2013 TRIAMCINOLONE ACET INJ NOS CPT-4: J3301 10/07/2012 THER/PROPH/DIAG INJ SC/IM CPT-4: 93523 10/07/2012 ROUTINE VENIPUNCTURE CPT- 4: 96829 08/27/2012 ROUTINE VENIPUNCTURE CPT- 4: 09901 07/15/2012 ROUTINE VENIPUNCTURE CPT- 4: 69960 03/26/2012 ADMIN INFLUENZA VIRUS VAC CPT-4: G0008 03/26/2012 FLULAVAL VACC, 3 YRS & >, IM CPT-4: Q2036 03/26/2012 Pneumococcal Polysaccharide Vaccine, 23-Valent, Ad CPT-4: 67393 03/26/2012 ROUTINE VENIPUNCTURE CPT- 4: 04330 01/08/2012 ROUTINE VENIPUNCTURE CPT- 4: 31546 11/06/2011 ROUTINE VENIPUNCTURE CPT- 4: 87219 10/25/2011 ROUTINE VENIPUNCTURE CPT- 4: 28112 10/16/2011 ROUTINE VENIPUNCTURE CPT- 4: 29228 09/25/2011 INJ TRIGGER POINT 1/2 MUSCL CPT-4: 07640 07/31/2011 TRIAMCINOLONE ACET INJ NOS CPT-4: J3301 07/31/2011 PRESCRIP TRANSMIT VIA ERX SY CPT-4: G8553 05/22/2011 ADMIN INFLUENZA VIRUS VAC CPT-4: G0008 05/02/2011 FLULAVAL VACC, 3 YRS & >, IM CPT-4: Q2036 05/02/2011 ROUTINE VENIPUNCTURE CPT- 4: 65957 05/02/2011 Vital Signs Date Vital 05/27/2018 Blood Pressure 1: 128/76 Code: 8480-6 BMI: 28.9 Code: 16952-3 Heart Rate 1: 74 bpm Height: 5'1" SpO2: 99% Weight: 153 lbs 01/21/2018 Blood Pressure 1: 132/78 Code: 8480-6 BMI: 28.7 Code: 96295-5 Heart Rate 1: 112 bpm Height: 5'1" SpO2: 98% Weight: 152 lbs 12/04/2017 Blood Pressure 1: 140/74 Code: 8480-6 BMI: 27.6 Code: 27584-9 Heart Rate 1: 76 bpm Height: 5'1" SpO2: 97% Weight: 146 lbs 11/13/2017 Blood Pressure 1: 166/78 Code: 8480-6 BMI: 27.4 Code: 11642-3 Heart Rate 1: 78 bpm Height: 5'1" SpO2: 98% Weight: 145 lbs 10/30/2017 Blood Pressure 1: 148/72 Code: 8480-6 BMI: 27.8 Code: 24650-3 Heart Rate 1: 92 bpm Height: 5'1" SpO2: 96% Weight: 147 lbs 09/20/2017 Blood Pressure 1: 146/68 Code: 8480-6 BMI: 28.2 Code: 87006-7 Heart Rate 1: 66 bpm Height: 5'1" SpO2: 99% Weight: 149 lbs 05/29/2017 Blood Pressure 1: 156/82 Code: 8480-6 BMI: 28.7 Code: 15984-2 Heart Rate 1: 71 bpm Height: 5'1" SpO2: 96% Weight: 152 lbs 05/14/2017 Blood Pressure 1: 150/88 Code: 8480-6 BMI: 28.5 Code: 35969-9 Heart Rate 1: 71 bpm Height: 5'1" SpO2: 98% Weight: 151 lbs 03/06/2017 Blood Pressure 1: 148/66 Code: 8480-6 BMI: 28.5 Code: 60119-9 Heart Rate 1: 78 bpm Height: 5'1" SpO2: 98% Weight: 151 lbs 11/01/2016 Blood Pressure 1: 150/84 Code: 8480-6 BMI: 29.1 Code: 62589-6 Heart Rate 1: 71 bpm Height: 5'1" SpO2: 97% Weight: 154 lbs 10/18/2016 Blood Pressure 1: 156/98 Code: 8480-6 Heart Rate 1: 68 bpm Height: 5'1" SpO2: 98% Weight: 10/12/2016 Blood Pressure 1: 142/76 Code: 8480-6 BMI: 30.0 Code: 83390-5 Heart Rate 1: 76 bpm Height: 5'1" SpO2: 95% Weight: 159 lbs 09/04/2016 Blood Pressure 1: 120/70 Code: 8480-6 Blood Pressure 1: 148/84 Code: 8480-6 BMI: 30.0 Code: 40913-8 Heart Rate 1: 72 bpm Height: 5'1" SpO2: 94% Weight: 159 lbs 05/30/2016 Blood Pressure 1: 152/84 Code: 8480-6 BMI: 29.9 Code: 62482-9 Heart Rate 1: 76 bpm Height: 5'1" SpO2: 97% Weight: 158 lbs 8 oz 05/01/2016 Blood Pressure 1: 146/60 Code: 8480-6 BMI: 29.9 Code: 40021-8 Heart Rate 1: 72 bpm Height: 5'1" SpO2: 97% Weight: 158 lbs 02/29/2016 Blood Pressure 1: 152/82 Code: 8480-6 BMI: 30.4 Code: 63386-1 Heart Rate 1: 71 bpm Height: 5'1" SpO2: 96% Weight: 161 lbs 02/03/2016 Blood Pressure 1: 148/88 Code: 8480-6 BMI: 30.6 Code: 80430-5 Heart Rate 1: 72 bpm Height: 5'1" SpO2: 98% Weight: 162 lbs 12/21/2015 Blood Pressure 1: 180/78 Code: 8480-6 BMI: 30.9 Code: 30242-9 Heart Rate 1: 64 bpm Height: 5'1" SpO2: 97% Weight: 163 lbs 8 oz 10/25/2015 Blood Pressure 1: 150/78 Code: 8480-6 BMI: 31.0 Code: 95126-0 Heart Rate 1: 73 bpm Height: 5'1" SpO2: 98% Weight: 164 lbs 10/19/2015 Blood Pressure 1: 122/72 Code: 8480-6 BMI: 31.6 Code: 03911-1 Heart Rate 1: 88 bpm Height: 5'1" SpO2: 98% Weight: 167 lbs 06/22/2015 Blood Pressure 1: 150/82 Code: 8480-6 BMI: 31.4 Code: 41466-7 Heart Rate 1: 86 bpm Height: 5'1" SpO2: 96% Weight: 166 lbs 12/22/2014 Blood Pressure 1: 160/92 Code: 8480-6 BMI: 31.2 Code: 92040-1 Heart Rate 1: 85 bpm Height: 5'1" SpO2: 97% Weight: 165 lbs 08/17/2014 Blood Pressure 1: 138/80 Code: 8480-6 BMI: 31.6 Code: 88015-0 Heart Rate 1: 77 bpm Height: 5'1" SpO2: 97% Weight: 167 lbs 04/13/2014 Blood Pressure 1: 144/88 Code: 8480-6 BMI: 31.6 Code: 01551-6 Heart Rate 1: 90 bpm Height: 5'1" Weight: 167 lbs 12/11/2013 Blood Pressure 1: 168/90 Code: 8480-6 BMI: 32.3 Code: 55541-8 Heart Rate 1: 72 bpm Height: 5'1" Weight: 171 lbs 11/10/2013 Blood Pressure 1: 150/80 Code: 8480-6 BMI: 32.3 Code: 87588-2 Heart Rate 1: 76 bpm Height: 5'1" Weight: 171 lbs 08/11/2013 Blood Pressure 1: 152/80 Code: 8480-6 BMI: 32.5 Code: 92519-0 Heart Rate 1: 92 bpm Height: 5'1" Temperature: 36.7 (C) / 98.0 (F) Weight: 172 lbs 05/12/2013 Blood Pressure 1: 142/102 Code: 8480-6 Blood Pressure 2: 144/98 Code: 8480-6 BMI: 34.2 Code: 79578-7 Heart Rate 1: 80 bpm Height: 5'1" Weight: 181 lbs 01/06/2013 Blood Pressure 1: 138/76 Code: 8480-6 BMI: 34.6 Code: 68781-1 Heart Rate 1: 64 bpm Height: 5'1" Weight: 183 lbs 10/07/2012 Blood Pressure 1: 146/76 Code: 8480-6 BMI: 35.6 Code: 37600-4 Heart Rate 1: 76 bpm Height: 5'1" Respiratory Rate: 20 bpm Weight: 188 lbs 8 oz 09/11/2012 Blood Pressure 1: 158/92 Code: 8480-6 BMI: 35.7 Code: 68828-3 Heart Rate 1: 76 bpm Height: 5'1" Weight: 189 lbs 07/15/2012 Blood Pressure 1: 158/100 Code: 8480-6 BMI: 36.3 Code: 89028-2 Heart Rate 1: 72 bpm Height: 5'1" Respiratory Rate: 20 bpm Weight: 192 lbs 05/02/2012 Blood Pressure 1: 156/80 Code: 8480-6 BMI: 35.9 Code: 56710-1 Heart Rate 1: 72 bpm Height: 5'1" Weight: 190 lbs 03/28/2012 Blood Pressure 1: 133/88 Code: 8480-6 Heart Rate 1: 78 bpm Weight: 189 lbs 11/27/2011 Blood Pressure 1: 178/80 Code: 8480-6 BMI: 36.7 Code: 36832-0 Heart Rate 1: 72 bpm Height: 5'1" Respiratory Rate: 20 bpm Weight: 194 lbs 10/25/2011 Blood Pressure 1: 122/62 Code: 8480-6 BMI: 37.0 Code: 22570-4 Heart Rate 1: 80 bpm Height: 5'1" [...] 2: / Code: 8480-6 BMI: 37.1 Code: 90799-7 Heart Rate 1: 72 bpm Height: 5'1" Respiratory Rate: 16 bpm SpO2: % Temperature: .0 (C) / 32.0 (F) Weight: 196 lbs 8 oz 05/22/2011 Blood Pressure 1: 147/71 Code: 8480-6 BMI: 18.7 Code: 17442-7 Heart Rate 1: 77 bpm Height: 7'1" Weight: 192 lbs 05/05/2011 Blood Pressure 1: 178/88 Code: 8480-6 BMI: 37.4 Code: 62225-4 Heart Rate 1: 80 bpm Height: 5' [...] Present Encounters Encounter Performer Location Codes Date ([id number]) [id number] EST. PATIENT, LEVEL IV Diagnosis: Type 2 diabetes mellitus with hyperglycemia[ICD10: E11.65] Diagnosis: Atrophy of thyroid (acquired)[ICD10: E03.4] Clarice Elaine MD, [facility] CPT-4: 64203 05/27/2018 ([id number]) 35786 EST. PATIENT, LEVEL IV Diagnosis: Type 2 diabetes mellitus without complications[ICD10: E11.9] Diagnosis: Paroxysmal atrial fibrillation[ICD10: I48.0] Diagnosis: Essential (primary) hypertension[ICD10: I10] Clarice Elaine MD, [facility] CPT-4: 76568 01/21/2018 ([id number]) 08834 EST. PATIENT, LEVEL III Diagnosis: Paroxysmal atrial fibrillation[ICD10: I48.0] Diagnosis: Other specified anemias[ICD10: D64.89] Clarice Elaine MD, [facility] CPT-4: 58942 12/04/2017 ([id number]) 78258 EST. PATIENT, LEVEL IV Diagnosis: Benign paroxysmal vertigo, bilateral[ICD10: H81.13] Diagnosis: Essential (primary) hypertension[ICD10: I10] Diagnosis: Other fatigue[ICD10: R53.83] Diagnosis: Other specified anemias[ICD10: D64.89] Diagnosis: Other allergic rhinitis[ICD10: J30.89] Socorro Elaine MD, [facility] CPT-4: 06242 11/13/2017 ([id number]) 20205 EST. PATIENT, LEVEL III Diagnosis: Mild intermittent asthma with (acute) exacerbation[ICD10: J45.21] Diagnosis: Cough[ICD10: R05] Socorro Elaine MD, [facility] CPT-4: 73044 10/30/2017 ([id number]) 28609 EST. PATIENT, LEVEL IV Diagnosis: Gastro-esophageal reflux disease without esophagitis[ICD10: K21.9] Diagnosis: Type 2 diabetes mellitus without complications[ICD10: E11.9] Diagnosis: Other specified anemias[ICD10: D64.89] Diagnosis: Paroxysmal atrial fibrillation[ICD10: I48.0] Socorro Elaine MD, [facility] CPT-4: 40735 09/20/2017 ([id number]) 65289 EST. PATIENT, LEVEL III Diagnosis: Essential (primary) hypertension[ICD10: I10] Clarice Elaine MD, [facility] CPT-4: 27522 05/29/2017 ([id number]) 58696 EST. PATIENT, LEVEL III Diagnosis: Acute bronchitis due to other specified organisms[ICD10: J20.8] Diagnosis: Cough[ICD10: R05] Diagnosis: Other chest pain[ICD10: R07.89] Clarice Elaine MD, [facility] CPT-4: 25447 05/14/2017 ([id number]) 14848 EST. PATIENT, LEVEL IV Diagnosis: Type 2 diabetes mellitus with hyperglycemia[ICD10: E11.65] Diagnosis: Essential (primary) hypertension[ICD10: I10] Diagnosis: Mild intermittent asthma with (acute) exacerbation[ICD10: J45.21] Clarice Elaine MD, [facility] CPT-4: 83302 03/06/2017 ([id number]) 16644 EST. 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 PATIENT, LEVEL III Diagnosis: Mild intermittent asthma with (acute) exacerbation[ICD10: J45.21] Diagnosis: Gastro-esophageal reflux disease without esophagitis[ICD10: K21.9] Jayne Elaine MD [facility] CPT-4: 41707 10/12/2016 ([id number]) 24578 EST. PATIENT, LEVEL IV Diagnosis: Type 2 diabetes mellitus with hyperglycemia[ICD10: E11.65] Diagnosis: Essential (primary) hypertension[ICD10: I10] Diagnosis: Mild intermittent asthma with (acute) exacerbation[ICD10: J45.21] Clarice Elaine MD [facility] CPT-4: 35505 09/04/2016 [id number] EST. PATIENT, LEVEL III Diagnosis: Pain in left ankle and joints of left foot[ICD10: M25.572] Diagnosis: Localized edema[ICD10: R60.0] Jayne Elaine MD [facility] CPT-4: 22958 05/30/2016 ([id number]) 73038 EST. PATIENT, LEVEL III Diagnosis: Type 2 diabetes mellitus with hyperglycemia[ICD10: E11.65] Clarice Elaine MD [facility] CPT-4: 26224 05/01/2016 ([id number]) 54129 EST. PATIENT, LEVEL IV Diagnosis: Type 2 diabetes mellitus without complications[ICD10: E11.9] Diagnosis: Moderate persistent asthma, uncomplicated[ICD10: J45.40] Diagnosis: Paroxysmal atrial fibrillation[ICD10: I48.0] Clarice Elaine MD [facility] CPT-4: 73845 02/29/2016 ([id number]) 23904 EST. PATIENT, LEVEL IV Diagnosis: Paroxysmal atrial fibrillation[ICD10: I48.0] Diagnosis: Hypothyroidism, unspecified[ICD10: E03.9] Diagnosis: Type 2 diabetes mellitus without complications[ICD10: E11.9] Diagnosis: Essential (primary) hypertension[ICD10: I10] Diagnosis: Acute maxillary sinusitis, unspecified[ICD10: J01.00] Diagnosis: Moderate persistent asthma, uncomplicated[ICD10: J45.40] Clarice Elaine MD [facility] CPT-4: 30275 02/03/2016 ([id number]) 58788 EST. PATIENT, LEVEL IV Diagnosis: Type 2 diabetes mellitus without complications[ICD10: E11.9] Diagnosis: Hypothyroidism, unspecified[ICD10: E03.9] Diagnosis: Moderate persistent asthma, uncomplicated[ICD10: J45.40] Diagnosis: Essential (primary) hypertension[ICD10: I10] Clarice Elaine MD [facility] CPT-4: 06822 12/21/2015 ([id number]) 22851 EST. 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 PATIENT, LEVEL IV Diagnosis: Type 2 diabetes mellitus without complications[ICD10: E11.9] Diagnosis: Essential (primary) hypertension[ICD10: I10] Diagnosis: Hypothyroidism, unspecified[ICD10: E03.9] Clarice Elaine MD [facility] CPT-4: 06891 06/22/2015 [id number]) 45093 EST. PATIENT, LEVEL IV Diagnosis: ESSENTIAL HYPERTENSION[ICD9: 401.9] Diagnosis: DIABETES TYPE II[ICD9: 250.00] Clarice Elaine MD [facility] CPT-4: 47580 12/22/2014 ([id number]) 20436 EST. PATIENT, LEVEL IV Diagnosis: ACUTE BRONCHITIS[ICD9: 466.0] Diagnosis: Acute asthma exacerbation[ICD9: 493.92] Diagnosis: ESSENTIAL HYPERTENSION[ICD9: 401.9] Diagnosis: DIABETES TYPE II[ICD9: 250.00] Clarice Elaine MD [facility] CPT-4: 98015 08/17/2014 ([id number]) 14327 EST. PATIENT, LEVEL IV Diagnosis: DIABETES TYPE II[ICD9: 250.00] Diagnosis: ESSENTIAL HYPERTENSION[ICD9: 401.9] Diagnosis: Acute asthma exacerbation[ICD9: 493.92] Clarice Elaine MD [facility] CPT-4: 51556 04/13/2014 ([id number]) 23983 EST. PATIENT, LEVEL IV Diagnosis: DIABETES TYPE II[ICD9: 250.00] Diagnosis: ESSENTIAL HYPERTENSION[ICD9: 401.9] Diagnosis: HYPOTHYROIDISM[ICD9: 244.9] Clarice Elaine MD [facility] CPT-4: 60958 12/11/2013 ([id number]) 96320 EST. PATIENT, LEVEL IV Diagnosis: DM W/O COMPLICATION TYPE II, UNCONTROLLED[ICD9: 250.02] Diagnosis: ESSENTIAL HYPERTENSION[ICD9: 401.9] Clarice Elaine MD [facility] CPT- 4: 02623 11/10/2013 ([id number]) 55159 EST. PATIENT, LEVEL IV Diagnosis: DM W/O COMPLICATION TYPE II, UNCONTROLLED[SNOMED: 48038375] Diagnosis: ESSENTIAL HYPERTENSION[SNOMED: 93940384] Diagnosis: ACUTE BRONCHITIS[ICD9: 466.0] Clarice Elaine MD [facility] CPT-4: 43814 08/11/2013 ([id number]) 34915 EST. PATIENT, LEVEL IV Diagnosis: DM W/O COMPLICATION TYPE II, UNCONTROLLED[SNOMED: 80009044] Diagnosis: ATRIAL FIBRILLATION[ICD9: 427.31] Diagnosis: ESSENTIAL HYPERTENSION[SNOMED: 88163685] Clarice Elaine MD [facility] CPT-4: 79519 05/12/2013 ([id number]) 34311 EST. PATIENT, LEVEL IV Diagnosis: DM W/O COMPLICATION TYPE II, UNCONTROLLED[SNOMED: 94514932] Diagnosis: ESSENTIAL HYPERTENSION[SNOMED: 22844139] Clarice Elaine MD, [facility] CPT-4: 98834 01/06/2013 ([id number]) 04708 EST. PATIENT, LEVEL IV Diagnosis: DIABETES TYPE II[SNOMED: 387091470] Diagnosis: ESSENTIAL HYPERTENSION[SNOMED: 55344748] Diagnosis: Acute asthma exacerbation[ICD9: 493.92] Diagnosis: Fatigue[ICD9: 780.79] Clarice Elaine MD [facility] CPT-4: 12367 10/07/2012 ([id number]) 83634 EST. PATIENT, LEVEL IV Diagnosis: DM W/O COMPLICATION TYPE II, UNCONTROLLED[SNOMED: 93271026] Diagnosis: Lump of breast, right[ICD9: 611.72] Diagnosis: Lump on neck[ICD9: 784.2] Clarice Elaine MD [facility] CPT-4: 01026 09/11/2012 ([id number]) 22310 EST. PATIENT, LEVEL IV Diagnosis: ESSENTIAL HYPERTENSION[SNOMED: 85085687] Diagnosis: Atrial fibrillation[ICD9: 427.31] Diagnosis: Fatigue[ICD9: 780.79] Diagnosis: Encounter for monitoring digoxin therapy[ICD9: V58.83] Clarice Elaine MD [facility] CPT-4: 26379 07/15/2012 ([id number]) 00142 EST. PATIENT, LEVEL IV Diagnosis: DIABETES TYPE II[SNOMED: 476001998] Diagnosis: ESSENTIAL HYPERTENSION[SNOMED: 14207620] Clarice Elaine MD [facility] CPT-4: 22684 05/02/2012 ([id number]) 69433 EST. PATIENT, LEVEL IV Diagnosis: DM W/O COMPLICATION TYPE II, UNCONTROLLED[SNOMED: 40766060] Diagnosis: ESSENTIAL HYPERTENSION[SNOMED: 76918932] Diagnosis: HYPERLIPIDEMIA[ICD9: 272.4] Clarice Elaine MD [facility] CPT-4: 94510 03/28/2012 ([id number]) 45214 EST. PATIENT, LEVEL IV Diagnosis: DM W/O COMPLICATION TYPE II, UNCONTROLLED[SNOMED: 57104205] Diagnosis: ESSENTIAL HYPERTENSION[SNOMED: 78915533] Clarice Elaine MD [facility] CPT-4: 52441 11/27/2011 ([id number]) 46681 EST. PATIENT, LEVEL III Diagnosis: ESSENTIAL HYPERTENSION[SNOMED: 48692579] Diagnosis: ANEMIA[ICD9: 285.9] Diagnosis: Gastritis[ICD9: 535.50] Clarice Elaine MD [facility] CPT-4: 58087 10/25/2011 ([id number]) 60880 EST. PATIENT, LEVEL III Diagnosis: Anemia associated with acute blood loss[ICD9: 285.1] Diagnosis: Gastritis, acute with hemorrhage[ICD9: 535.01] Clarice Elaine MD [facility] CPT-4: 87810 10/11/2011 ([id number]) 59118 EST. PATIENT, LEVEL IV Diagnosis: Hematochezia[ICD9: 578.1] Diagnosis: ENCNTR LONG-RX USE NEC[ICD9: V58.69] Diagnosis: Abdominal pain[ICD9: 789.00] Clarice Elaine MD [facility] CPT-4: 99231 10/04/2011 ([id number]) 52292 EST. PATIENT, LEVEL IV Diagnosis: DIABETES TYPE II[SNOMED: 700167198] Diagnosis: ESSENTIAL HYPERTENSION[SNOMED: 34151693] Diagnosis: Coronary artery disease[ICD9: 414.00] Clarice Elaine MD [facility] CPT-4: 06425 09/25/2011 ([id number]) 13885 EST. PATIENT, LEVEL IV Diagnosis: Muscle spasm[ICD9: 728.85] Diagnosis: Arthralgia[ICD9: 719.40] Diagnosis: ESSENTIAL HYPERTENSION[SNOMED: 81143862] Clarice Elaine MD [facility] CPT-4: 38873 07/31/2011 [id number] EST. PATIENT, LEVEL III Diagnosis: ACUTE SINUSITIS[ICD9: 461.9] Diagnosis: Cervicalgia[ICD9: 723.1] Socorro Elaine MD [facility] CPT-4: 38526 05/22/2011 [id number] EST. PATIENT, LEVEL IV Diagnosis: HYPERLIPIDEMIA[ICD9: 272.4] Diagnosis: HYPOTHYROIDISM[ICD9: 244.9] Diagnosis: DM W/O COMPLICATION TYPE II, UNCONTROLLED[SNOMED: 44024741] Clarice Elaine MD, [facility] CPT-4: 86744 05/05/2011 Plan of Care Planned Activity Notes [...] of control. 05/27/2018 Appointment: [phone] [id number] (15 min) Moderate 05/27/2018 Patient Education: Patient [...] becoming uncontrolled. 01/21/2018 Appointment: [facility] Elaine [phone] [facility] (15 min) Moderate 01/21/2018 Patient Education: Patient [...] venofer IV. 12/04/2017 Appointment: Clarice Elaine [facility]el[facility] [phone] [facility] [place] (15 min) Moderate 12/04/2017 Patient Education: Patient [...] instructions/medication interventions. HTN- elevated today-monitor at home Ethpjj-wfbfoco-yyrjh labs Allergies-add flonase nasal spray 11/13/2017 Visit Plan: BPPV - Benign Paroxysmal Positional Vertigo - discussed diagnosis with the patient, offered the pt the appropriate additional information in hand-out. Pt instructed in home exercises to help alleviate and prevent future recurrent episodes of vertigo. Pt informed that if symptoms worsen, call the office for further instructions/medication interventions. HTN- elevated today-monitor at home Aoywcd-nefdbfy-zkmpn labs Allergies-add flonase nasal spray 11/13/2017 [facility]ment[phone] [place] (30 min) Complex 11/13/2017 Patient Education: Patient [...] acute changes. 10/30/2017 Appointment: Socorro Salmeron WPtel: [facility] [phone] (30 min) Complex 10/30/2017 Patient Education: Patient Medication Summary Completed 10/30/2017 Appointment: Clarice Elaine WPtel: [address] [place], [place] [phone] (15 min) Moderate 09/25/2017 Visit Plan: GERD-continue protonix and carafate-low spice diet -call if symptoms uncontrolled [place]-history of anemia-check Hgb-stay off aspirin per Dr Lauren Mcdermott-now in NSR -continue xarelto-follow up with Dr Aguilar as scheduled DM-check Hgb A1C 09/20/2017 Visit Plan: GERD-continue protonix and carafate-low spice diet -call if symptoms uncontrolled [place]-history of anemia-check Hgb-stay off aspirin per Dr Lauren Mcdermott-gustavo in NSR -continue xarelto-follow up with Dr Aguilar as scheduled DM-check Hgb A1C 09/20/2017 Appointment: Socorro Salmeron WPtel: [address] [place], [place] [id number] [place] (30 min) Complex 09/20/2017 Patient Education: Patient Medication Summary Completed 09/20/2017 Appointment: Clarice Elaine WPtel: [address] [place], [place] [phone] [place] (15 min) Moderate 06/26/2017 Visit Plan: [...] process. 05/29/2017 Appointment: Clarice Elaine WPtel: [phone] [facility] (15 min) Moderate 05/29/2017 Patient Education: Patient Medication Summary Completed 05/29/2017 Patient Education: Hypertension Completed 05/29/2017 Visit Plan: Bronchitis - acute case of bronchitis identified. Pt has been given antibiotics, breathing treatments as appropriate, and pt has been instructed to call if symptoms are not improved, or if symptoms acutely worsen. Chest pain - chest wall - toradol shot hospira [id number] november 2018 05/14/2017 Visit Plan: Bronchitis - acute case of bronchitis identified. Pt has been given antibiotics, breathing treatments as appropriate, and pt has been instructed to call if symptoms are not improved, or if symptoms acutely worsen. Chest pain - chest wall - toradol shot hospira [id number] november 2018 05/14/2017 Appointment: Clarice Elaine WPtel: [phone] [facility] (15 min) Moderate 05/14/2017 Patient Education: Patient [...] clinic today. 03/06/2017 Appointment: Clarice Elaine WPtel: [facility]6 [facility] (15 min) Moderate 03/06/2017 Patient Education: Patient Medication Summary Completed 03/06/2017 Patient Education: Hypertension Completed 03/06/2017 Appointment: Clarice Elaine WPtel: [facility] (15 min) Moderate 12/05/2016 Visit Plan: Hypertension [...] current treatment. 11/01/2016 Appointment: Clarice Elaine WPtel: [facility] [place] (15 min) Moderate 11/01/2016 Patient Education: [...] ILLNESS. 10/18/2016 Appointment: Clarice Elaine [facility]Ptel[phone] (15 min) Moderate 10/18/2016 Patient Education: Patient [...] changes 10/12/2016 [phone] ([facility]) Complex 10/12/2016 Patient Education: Patient [...] home. 09/04/2016 Appointment: Clarice Elaine WPtel: [phone] (15 min) Moderate 09/04/2016 Patient Education: Patient Medication Summary Completed 09/04/2016 Patient Education: Obesity Completed 09/04/2016 Patient Education: Hypertension Completed 09/04/2016 Appointment: Jayne Ragland WPtel: [phone] [facility] [facility] - Annual Wellness Visit 06/08/2016 Visit Plan: [...] glucose control. 05/01/2016 Appointment: Clarice Elaine WPtel: [facility]8 [facility] (15 min) Moderate 05/01/2016 Patient Education: Patient [...] acute changes 02/29/2016 Appointment: Clarice Elaine WPtel: [phone] [facility] Surgical Procedure 02/29/2016 Patient Education: Patient Medication [...] pressure readings. 12/21/2015 Appointment: Clarice Elaine WPtel: [address] [place], [place] [id number] (15 min) Moderate 12/21/2015 Patient Education: Patient [...] shot today 10/25/2015 Appointment: Clarice Elaine [facility]Ptel[phone] (15 min) Moderate 10/25/2015 Patient Education: Patient [...] ACUTE ILLNESS. 10/19/2015 Appointment: [phone] [place] (30 min) Complex 10/19/2015 Patient [...] at home. 08/17/2014 Appointment: Clarice Elaine WPtel: [address] [place] [address] Follow up 08/17/2014 Patient Education: Patient Medication [...] prn albuterol. 04/13/2014 Appointment: Clarice Elaine [facility]Ptel: [phone] Follow up 04/13/2014 Patient Education: Patient Medication [...] of control. 12/11/2013 Appointment: Clarice Elaine WPtel: [phone] Follow up 12/11/2013 Patient Education: Patient Medication [...] acute concerns. 11/10/2013 Appointment: Clarice Elaine WPtel: [facility] Follow up 11/10/2013 Patient Education: Patient Medication Summary Completed 11/10/2013 Patient Education: Hypertension Completed 11/10/2013 Appointment: Clarice Elaine WPtel: [phone] [facility] Lab Draw 11/04/2013 Patient Education: Patient Medication [...] patient's pharmacy. 08/11/2013 Appointment: Clarice Elaine WPtel: [phone] [place] Follow up 08/11/2013 Patient Education: Patient [...] today 05/12/2013 Appointment: Clarice Elaine WPtel: [phone] [facility] [place] Follow up 05/12/2013 Patient Education: Patient Medication [...] control. 01/06/2013 Appointment: Clarice Elaine WPtel: [phone] [facility] Follow up 01/06/2013 Patient Education: Patient Medication [...] shot today. 10/07/2012 Appointment: Clarice Elaine WPtel: [phone] Follow up 10/07/2012 Patient Education: Patient Medication [...] pt get mammogram and ultrasound 09/11/2012 Appointment: [place] W[place]: [phone] Follow up 09/11/2012 Patient Education: Patient Medication [...] level. 07/15/2012 Appointment: Clarice Elaine WPtel: [phone] [facility] [place] Follow up 07/15/2012 Patient Education: Patient [...] with Plavix. 05/02/2012 Appointment: Clarice Elaine WPtel: [phone] Follow up 05/02/2012 Patient Education: Patient Medication [...] COMPELTELY. 03/28/2012 Appointment: Clarice Elaine WPtel: [phone] [place] Follow up 03/28/2012 Patient Education: Patient [...] at home. 11/27/2011 Appointment: Clarice Elaine WPtel: [phone] Follow up 11/27/2011 Patient Education: Patient Medication Summary Completed 11/27/2011 Patient Education: High Blood Pressure: Essential Hypertension Completed 11/27/2011 Patient Education: Patient Medication Summary Completed 11/06/2011 Appointment: Clarice Elaine WPtel: [phone] Other 11/03/2011 Appointment: Clarice Elaine WPtel: [facility]5 [facility] [place] Other 11/02/2011 Appointment: Clarice Elaine WPtel: [phone] [facility] [place] Lab Draw 10/31/2011 Visit Plan: Hypertension [...] times daily. 10/25/2011 Appointment: Clarice Elaine WPtel: [facility]9 [place] [phone] Follow up 10/25/2011 Patient Education: Patient Medication Summary Completed 10/25/2011 Patient Education: High Blood Pressure: Essential Hypertension Completed 10/25/2011 Appointment: Clarice Elaine WPtel: [facility] [place] [phone] Lab Draw 10/16/2011 Patient Education: Patient Medication [...] to 11.4 10/11/2011 Appointment: Clarice Elaine WPtel: [address] [place], [place] [phone] Other 10/11/2011 Patient Education: Patient Medication Summary Completed 10/11/2011 Appointment: Clarice Elaine WPtel: [address] [place] [address] Other 10/10/2011 Visit Plan: Abdominal pain and [...] remained stable. 10/04/2011 Appointment: Clarice Elaine WPtel: [phone] [facility] Follow up 10/04/2011 Patient Education: Patient Medication [...] not improve. 09/25/2011 Appointment: Clarice Elaine WPtel: [phone] [facility] [place] Other 09/25/2011 Patient Education: Patient Medication [...] not improve. 07/31/2011 Appointment: Clarice Elaine WPtel: [phone] [facility] [place] Other 07/31/2011 Patient Education: Patient Medication [...] on use. 05/22/2011 Appointment: Socorro Salmeron [facility]Ptel[phone] [place] Other 05/22/2011 Patient Education: Patient [...] dose increased. 05/05/2011 Appointment: Clarice Elaine WPtel: [phone] [place] Other 05/05/2011 Patient Education: Patient Medication Summary Completed 05/05/2011 Patient Education: High Cholesterol Completed 05/05/2011 Appointment: Clarice Elaine WPtel: [phone] [facility] [place] Other 05/04/2011 Appointment: Clarice Elaine WPtel: [phone] [facility] [place] Lab Draw 05/02/2011 Patient Education: Patient Medication Summary Completed 05/02/2011 Patient Education: High Blood Pressure: Essential Hypertension Completed 05/02/2011 Instructions Comment . Diabetes Mellitus - controlled - per [...] week INSTEAD OF STOPPING THE ASPIRIN COMPELTELY. stop your current metformin - Dr. Elaine [...] home, call office with blood pressure readings. probiotic increase to three times daily while [...] further instructions/medication interventions. HTN-elevated today-monitor at home Oihvpt-espofdr-pgoww labs Allergies-add flonase nasal spray CHECK LABS [...] further instructions/medication interventions. HTN-elevated today-monitor at home Kvxknl-oywpcxg-qkdvx labs Allergies-add flonase nasal spray . Diabetes Mellitus - controlled - per [...] Dr Aguilar as scheduled DM-check Hgb A1C STOP ENSURE - START ON GLUCERNA DECREASE [...] to allow for greater blood glucose control. stop the janumet 50/1000mg and start on the janumet 100/1000mg daily. P2B - peanut powder - look at the organic section at [employer] or in [employer] at the peanut butter [...] in blood pressure readings at home. . Diabetes Mellitus - controlled - per [...] have pt get mammogram and ultrasound . Hypertension - well controlled - continue [...] to call if symptoms do not improve. BIOTENE MOUTHWASH FOR DRY MOUTH AND DRY [...] is to call for acute concerns. . Diabetes Mellitus - Uncontrolled - per [...] she needs to have venofer IV. . Esophageal Reflux - the patient has [...] is worsening or does not improve. . Bronchitis - acute case of bronchitis identified. Pt has been given antibiotics, breathing treatments as appropriate, and pt has been instructed to call if symptoms are not improved, or if symptoms acutely worsen. Chest pain - chest wall - toradol shot hospira [id number] november 2018 . Asthma Exacerbation - Asthma [...] is stable, monitor for acute changes . Bronchitis - acute case of bronchitis identified. Pt has been given antibiotics, breathing treatments as appropriate, and pt has been instructed to call if symptoms are not improved, or if symptoms acutely worsen. Chest pain - chest wall - toradol shot hospira [id number] november 2018 . ADMIT FROM CLINIC TO HOSPITAL - [...]
--- OUTSIDE RECORDS SUMMARY | 2018-12-28 04:39 | XMS REPORT | CCD ---
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 Unknown Has never used illegal drugs 05/05/2011 Allergies, Adverse Reactions, Alerts Substance Reaction Codes Entered Date Inactivated Date Status noroxin RxNorm: 7517 05/05/2011 No Inactive Date Active trovan RxNorm: 102653 05/05/2011 No Inactive Date Active * NO KNOWN FOOD ALLERGIES Unknown 05/05/2011 No Inactive Date Active PREDNISONE RxNorm: 8640 05/05/2011 No Inactive Date Active cephalexin RxNorm: 2231 05/05/2011 No Inactive Date Active theophylline RxNorm: 08022 05/05/2011 No Inactive Date Active azithromycin Unknown 10/11/2011 No Inactive Date Active Levaquin RxNorm: 49231 10/11/2011 No Inactive Date Active MORPHINE SULFATE [...] Start Date Stop Date Status Fill Instructions Symbicort 160 mcg-4.5 mcg/actuation HFA aerosol inhaler RxNorm: 8297678 1 INH BID 06/07/2018 07/06/2018 Active Symbicort 160 mcg-4.5 mcg/actuation HFA aerosol inhaler RxNorm: 5449184 1 INH 06/07/2018 06/06/2018 Inactive glipizide 5 mg tablet RxNorm: 473556 1/2 Tablet(s) PO BID TAKE ONE-HALF TABLET BY MOUTH TWICE DAILY 05/27/2018 08/19/2019 Active Synthroid 75 mcg tablet RxNorm: 543266 1 Tablet(s) PO daily 05/15/2018 11/10/2018 Active Synthroid 75 mcg tablet RxNorm: 083224 1 Tablet(s) PO daily 05/15/2018 05/14/2018 Inactive Synthroid 88 mcg tablet RxNorm: 544610 TAKE 1 TABLET BY MOUTH ONCE DAILY 04/08/2018 05/14/2018 Inactive amiodarone 200 mg tablet RxNorm: 735937 1/2 Tablet(s) PO BID 01/21/2018 05/26/2018 Inactive Bactrim DS 800 mg-160 mg tablet RxNorm: 748489 1 Tablet(s) PO BID 01/03/2018 01/02/2018 Inactive take probiotic bid x 7 days Bactrim DS 800 mg-160 mg tablet RxNorm: 600562 1 Tablet(s) PO BID 01/03/2018 01/09/2018 Inactive take probiotic bid x 7 days nitrofurantoin 100 mg capsule RxNorm: 045607 1 Capsule(s) PO BID 12/31/2017 01/06/2018 Inactive nitrofurantoin 100 mg capsule RxNorm: 913226 1 Capsule(s) PO BID 12/31/2017 12/30/2017 Inactive nitrofurantoin 100 mg capsule RxNorm: 109616 1 Capsule(s) PO BID 12/31/2017 12/30/2017 Inactive glipizide 5 mg tablet RxNorm: 019422 TAKE ONE-HALF TABLET BY MOUTH TWICE DAILY 11/23/2017 05/26/2018 Inactive meclizine 25 mg tablet RxNorm: 018279 1 Tablet(s) PO Q6 PRN 11/13/2017 No Stop Date Active Kenalog 40 mg/mL suspension for injection RxNorm: 8325411 1.5 Milliliter(s) Inj 10/30/2017 10/30/2017 Inactive Augmentin 875 mg-125 mg tablet RxNorm: 729579 1 Tablet(s) PO BID 10/30/2017 11/05/2017 Inactive Synthroid 88 mcg tablet RxNorm: 922080 TAKE ONE TABLET BY MOUTH ONCE DAILY 10/15/2017 04/07/2018 Inactive metformin 500 mg tablet RxNorm: 808332 TAKE ONE TABLET BY MOUTH WITH BREAKFAST AND ONE TABLET WITH LUNCH AND TWO TABLETS WITH SUPPER 10/15/2017 01/20/2018 Inactive albuterol sulfate 2.5 mg/3 mL (0.083 %) solution for nebulization RxNorm: 672623 USE ONE VIAL IN NEBULIZER 4 TIMES DAILY NEEDED FOR ASTHMA 08/16/2017 No Stop Date Active Plavix 75 mg tablet RxNorm: 254146 TAKE ONE TABLET BY MOUTH ONCE DAILY 06/25/2017 06/24/2017 Inactive Plavix 75 mg tablet RxNorm: 655018 1 Tablet(s) PO daily TAKE ONE TABLET BY MOUTH ONCE DAILY 06/25/2017 09/19/2017 Inactive acyclovir 800 mg tablet RxNorm: 479818 1 Tablet(s) PO QID 05/15/2017 05/14/2017 Inactive acyclovir 800 mg tablet RxNorm: 854539 1 Tablet(s) PO QID 05/15/2017 05/21/2017 Inactive tramadol 50 mg tablet RxNorm: 410284 1 Tablet(s) PO TID 05/15/2017 05/24/2017 Inactive ketorolac 60 mg/2 mL intramuscular solution RxNorm: 782207 2 Milliliter(s) IM 05/14/2017 05/14/2017 Inactive Augmentin 875 mg-125 mg tablet RxNorm: 025464 1 Tablet(s) PO BID 05/14/2017 05/23/2017 Inactive Synthroid 88 mcg tablet RxNorm: 843649 TAKE ONE TABLET BY MOUTH ONCE DAILY; NEED THYROID LABS DONE 04/16/2017 10/12/2017 Inactive Kenalog 40 mg/mL suspension for injection RxNorm: 0345366 Milliliter(s) Inj 03/06/2017 03/06/2017 Inactive metformin 500 mg tablet RxNorm: 243069 1 Tablet(s) UD 1 tab at breakfast, 1tab at lunch, 2 tab at supper 03/06/2017 09/01/2017 Inactive glipizide 5 mg tablet RxNorm: 100447 TAKE ONE-HALF TABLET BY MOUTH TWICE DAILY 02/23/2017 11/19/2017 Inactive Synthroid 88 mcg tablet RxNorm: 757806 Tablet(s) PO TAKE ONE TABLET BY MOUTH DAILY 01/17/2017 04/15/2017 Inactive Needs thyroid labs done Plavix 75 mg tablet RxNorm: 014068 TAKE ONE TABLET BY MOUTH ONCE DAILY 12/25/2016 06/22/2017 Inactive Kenalog 40 mg/mL suspension for injection RxNorm: 9561392 1.5 Milliliter(s) Inj 09/04/2016 09/04/2016 Inactive Janumet XR 100 mg-1,000 mg tablet,extended release RxNorm: 2948016 1 Tablet(s) PO daily 09/04/2016 03/02/2017 Inactive glipizide 5 mg tablet RxNorm: 099530 TAKE ONE-HALF TABLET BY MOUTH TWICE DAILY 08/24/2016 02/19/2017 Inactive Janumet XR 50 mg-1,000 mg tablet,extended release RxNorm: 3148222 TAKE ONE TABLET BY MOUTH ONCE DAILY 05/29/2016 09/03/2016 Inactive metoprolol tartrate 25 mg tablet RxNorm: 858319 1/4 Tablet(s) PO BID 05/01/2016 05/29/2016 Inactive glipizide 5 mg tablet RxNorm: 077925 TAKE ONE-HALF TABLET BY MOUTH TWICE DAILY 02/21/2016 08/18/2016 Inactive ProAir HFA 90 mcg/actuation aerosol inhaler RxNorm: 369518 2 Puff(s) INH PRN as needed ASTHMA 02/03/2016 03/03/2016 Inactive Accu-Chek Active Test strips RxNorm: 1 test Miscellaneous daily 02/03/2016 08/25/2019 Active DX250.00 albuterol sulfate 2.5 mg/3 mL (0.083 %) solution for nebulization RxNorm: 835532 1 Milliliter(s) INH QID as needed ASTHMA 02/03/2016 06/01/2016 Inactive Janumet XR 50 mg-1,000 mg tablet,extended release RxNorm: 5778101 1 Tablet(s) PO daily 02/03/2016 05/28/2016 Inactive Augmentin 875 mg-125 mg tablet RxNorm: 571506 1 Tablet(s) PO BID 02/03/2016 02/12/2016 Inactive sucralfate 1 gram tablet RxNorm: 626400 1 Tablet(s) PO QID - take 30 minutes before meals and before supper 12/21/2015 04/18/2016 Inactive metformin ER 500 mg tablet,extended release 24 hr RxNorm: 855655 1 Tablet(s) PO BID 12/21/2015 02/02/2016 Inactive digoxin 250 mcg tablet RxNorm: 340860 1 Tablet(s) PO daily 12/21/2015 01/20/2018 Inactive Synthroid 88 mcg tablet RxNorm: 107611 Tablet(s) PO TAKE ONE TABLET BY MOUTH DAILY 12/20/2015 01/16/2017 Inactive Plavix 75 mg tablet RxNorm: 711939 1 Tablet(s) PO daily 12/20/2015 12/13/2016 Inactive Kenalog 40 mg/mL suspension for injection RxNorm: 8639471 1 Milliliter(s) Inj 11/11/2015 11/11/2015 Inactive Kenalog 40 mg/mL suspension for injection RxNorm: 4743847 1 Milliliter(s) Inj 10/25/2015 10/25/2015 Inactive metformin 500 mg tablet RxNorm: 322894 2 Tablet(s) PO BID 07/16/2015 12/20/2015 Inactive metformin 500 mg tablet RxNorm: 060341 TAKE TWO TABLETS BY MOUTH TWICE DAILY 07/16/2015 12/20/2015 Inactive albuterol sulfate 2.5 mg/3 mL (0.083 %) solution for nebulization RxNorm: 095891 1 Milliliter(s) INH QID as needed ASTHMA 07/14/2015 11/10/2015 Inactive glipizide 5 mg tablet RxNorm: 523318 1/2 Tablet(s) PO BID 02/03/2015 01/28/2016 Inactive Symbicort 160 mcg-4.5 mcg/actuation HFA aerosol inhaler RxNorm: 9682033 1 INH 01/06/2015 06/06/2018 Inactive metformin 500 mg tablet RxNorm: 116942 2 Tablet(s) PO BID 12/22/2014 06/19/2015 Inactive Plavix 75 mg tablet RxNorm: 900953 1 Tablet(s) PO daily 12/02/2014 11/26/2015 Inactive note directions of one per day Synthroid 88 mcg tablet RxNorm: 286216 1 Tablet(s) PO daily TAKE ONE TABLET BY MOUTH DAILY 12/02/2014 04/07/2018 Inactive Accu-Chek Active Test strips RxNorm: 1 test Miscellaneous daily 08/17/2014 02/02/2016 Inactive DX250.00 Kenalog 40 mg/mL suspension for injection RxNorm: 3027972 Milliliter(s) Inj 08/17/2014 08/17/2014 Inactive doxycycline hyclate 100 mg tablet RxNorm: 056356 1 Tablet(s) PO BID 08/17/2014 08/26/2014 Inactive albuterol sulfate 2.5 mg/3 mL (0.083 %) solution for nebulization RxNorm: 231133 1 Milliliter(s) INH QID as needed ASTHMA 08/17/2014 08/16/2014 Inactive albuterol sulfate 2.5 mg/3 mL (0.083 %) solution for nebulization RxNorm: 447462 1 Milliliter(s) INH QID as needed ASTHMA 08/17/2014 12/14/2014 Inactive doxycycline hyclate 100 mg tablet RxNorm: 562746 1 Tablet(s) PO BID 08/17/2014 08/16/2014 Inactive Accu-Chek Multiclix Lancet RxNorm: 1 Miscellaneous daily TEST BLOOD SUGAR EVERY DAY 08/17/2014 09/10/2015 Inactive DX 250.00 metformin 500 mg tablet RxNorm: 199854 TAKE TWO TABLETS BY MOUTH TWICE DAILY 06/23/2014 09/20/2014 Inactive metformin 500 mg tablet RxNorm: 502772 2 Tablet(s) PO BID 06/22/2014 12/18/2014 Inactive Bactrim DS 800 mg-160 mg tablet RxNorm: 108662 1 Tablet(s) PO BID 05/11/2014 05/17/2014 Inactive Bactrim DS 800 mg-160 mg tablet RxNorm: 032478 1 Tablet(s) PO BID 05/11/2014 05/10/2014 Inactive Kenalog 40 mg/mL suspension for injection RxNorm: 8665444 Milliliter(s) Inj 04/13/2014 04/13/2014 Inactive Accu-Chek Active Test strips RxNorm: 1 TEST MISCELLANEOUS BID 04/06/2014 10/22/2014 Inactive glipizide 5 mg tablet RxNorm: 803282 1/2 Tablet(s) PO BID 03/03/2014 02/02/2015 Inactive Synthroid 88 mcg tablet RxNorm: 417937 1 Tablet(s) PO daily TAKE ONE TABLET BY MOUTH DAILY 12/11/2013 12/01/2014 Inactive Plavix 75 mg tablet RxNorm: 979166 1 Tablet(s) PO daily 12/11/2013 12/01/2014 Inactive note directions of one per day glipizide 5 mg tablet RxNorm: 604592 1/2 Tablet(s) PO BID 11/10/2013 03/02/2014 Inactive Lipitor 10 mg tablet RxNorm: 600958 1 Tablet(s) PO daily 11/10/2013 12/21/2014 Inactive Accu-Chek Active Test strips RxNorm: strip miscellaneous TEST BLOOD SUGAR EVERY DAY 11/03/2013 No Stop Date Active Accu-Chek Multiclix Lancet RxNorm: misc miscellaneous TEST BLOOD SUGAR EVERY DAY 08/07/2013 08/16/2014 Inactive Accu-Chek Active Test strips RxNorm: strip miscellaneous TEST BLOOD SUGAR EVERY DAY 08/05/2013 No Stop Date Active digoxin 125 mcg tablet RxNorm: 942791 1 Tablet(s) PO daily 08/05/2013 10/28/2014 Inactive metformin 500 mg tablet RxNorm: 488560 2 Tablet(s) PO BID 06/12/2013 06/21/2014 Inactive metformin 500 mg tablet RxNorm: 271847 2 Tablet(s) PO BID 05/12/2013 06/11/2013 Inactive metformin 500 mg tablet RxNorm: 973463 Tablet(s) PO TAKE ONE & ONE-HALF TABLETS BY MOUTH TWICE DAILY 04/10/2013 05/11/2013 Inactive Synthroid 88 mcg tablet RxNorm: 845136 Tablet(s) PO TAKE ONE TABLET BY MOUTH DAILY 01/07/2013 12/19/2015 Inactive Synthroid 88 mcg tablet RxNorm: 613951 1 Tablet(s) PO daily TAKE ONE TABLET BY MOUTH DAILY 01/06/2013 12/10/2013 Inactive Plavix 75 mg tablet RxNorm: 236898 1 Tablet(s) PO daily 12/09/2012 12/03/2013 Inactive note directions of one per day Lipitor 80 mg tablet RxNorm: 047457 Tablet(s) PO TAKE 1 TABLET BY MOUTH EVERY DAY 10/28/2012 11/09/2013 Inactive Synthroid 88 mcg tablet RxNorm: 704266 Tablet(s) PO TAKE ONE TABLET BY MOUTH DAILY 10/07/2012 10/06/2012 Inactive Synthroid 88 mcg tablet RxNorm: 354415 1 Tablet(s) PO daily TAKE ONE TABLET BY MOUTH DAILY 10/07/2012 01/05/2013 Inactive Kenalog 40 mg/mL Susp for Injection RxNorm: 6741958 1 Milliliter(s) IM 10/07/2012 10/07/2012 Inactive digoxin 250 mcg tablet RxNorm: 6410981 1/2 Tablet(s) PO daily 07/15/2012 08/04/2013 Inactive Synthroid 88 mcg tablet RxNorm: 614544 Tablet(s) PO TAKE ONE TABLET BY MOUTH DAILY 06/28/2012 10/06/2012 Inactive Accu-Chek Multiclix Lancet RxNorm: Misc Miscellaneous 06/05/2012 No Stop Date Active TEST BLOOD SUGAR EVERY DAY Accu-Chek Active Test Strips RxNorm: Strip Miscellaneous 06/05/2012 No Stop Date Active TEST BLOOD SUGAR EVERY DAY Lipitor 80 mg tablet RxNorm: 937918 1/2 Tablet(s) PO daily 03/28/2012 No Stop Date Active TAKE 1 TABLET BY MOUTH EVERY DAY metformin 500 mg tablet RxNorm: 968982 1.5 Tablet(s) PO BID 03/28/2012 04/09/2013 Inactive Lipitor 80 mg tablet RxNorm: 698112 1/2 Tablet(s) PO 03/28/2012 08/16/2014 Inactive TAKE 1 TABLET BY MOUTH EVERY DAY Lipitor 80 mg tablet RxNorm: 594528 1/2 Tablet(s) PO daily 03/28/2012 No Stop Date Active TAKE 1 TABLET BY MOUTH EVERY DAY Influenza Virus Vaccine 0.5 mL RxNorm: IM 03/26/2012 03/26/2012 Inactive Pneumovax 23 25 mcg/0.5 mL Injection RxNorm: 890961 Milliliter(s) Inj 03/26/2012 03/26/2012 Inactive metformin 500 mg tablet RxNorm: 139533 1 Tablet(s) PO BID 11/27/2011 03/27/2012 Inactive Plavix 75 mg tablet RxNorm: 850889 1 Tablet(s) PO daily 11/01/2011 11/24/2012 Inactive note directions of one per day Lipitor 80 mg tablet RxNorm: 456497 Tablet(s) PO 10/18/2011 03/27/2012 Inactive TAKE 1 TABLET BY MOUTH EVERY DAY Protonix 40 mg Tab RxNorm: 533957 1 Tablet(s) PO BID 10/11/2011 12/20/2015 Inactive Accu-Chek Active Test Strips RxNorm: 1 test Miscellaneous daily 10/04/2011 08/16/2014 Inactive Carafate 1 gram Tab RxNorm: 145760 1 Tablet(s) PO QID 10/02/2011 10/31/2011 Inactive Carafate 1 gram Tab RxNorm: 140382 1 Tablet(s) PO TID 09/29/2011 09/28/2011 Inactive Carafate 1 gram Tab RxNorm: 470456 1 Tablet(s) PO TID 09/29/2011 10/01/2011 Inactive Kenalog 40 mg/mL Susp for Injection RxNorm: 1271259 2 Milliliter(s) Inj 07/31/2011 07/31/2011 Inactive Synthroid 88 mcg tablet RxNorm: 033539 1 Tablet(s) PO daily 06/06/2011 10/11/2011 Inactive Accu-Chek Active Test Strips RxNorm: 1 test Miscellaneous BID 06/05/2011 10/03/2011 Inactive Accu-Chek Multiclix Lancet RxNorm: 1 test Miscellaneous BID 06/02/2011 09/24/2011 Inactive Accu-Chek Active Test strips RxNorm: 1 test Miscellaneous BID 06/02/2011 06/04/2011 Inactive Bactrim DS 800 mg-160 mg Tab RxNorm: 793177 1 Tablet(s) PO BID 05/22/2011 05/31/2011 Inactive metformin 500 mg Tab RxNorm: 842140 1 Tablet(s) PO TID 05/05/2011 10/31/2011 Inactive Influenza Virus Vaccine 0.5 mL RxNorm: IM 05/02/2011 05/02/2011 Inactive albuterol sulfate HFA 90 mcg/Actuation Aerosol Inhaler RxNorm: 110576 1 Puff(s) INH PRN prn shortness of breath No Start Date Active Xarelto 20 mg tablet RxNorm: 6899031 1 Tablet(s) PO daily No Start Date Active multivitamin chewable tablet RxNorm: 1 Tablet(s) PO daily No Start Date Active Fish Oil 300 mg-1,000 mg capsule RxNorm: 616070 1 Capsule(s) PO occasional No Start Date Active hyoscyamine 0.125 mg sublingual tablet RxNorm: 3916689 1 Tablet(s) SL Q6 No Start Date Active simvastatin 20 mg tablet RxNorm: 899029 1/2 Tablet(s) PO daily No Start Date 12/20/2015 Inactive Zantac 75 75 mg Tab RxNorm: 757650 2 Tablet(s) PO daily No Start Date 12/20/2015 Inactive Protonix 40 mg Tab RxNorm: 075927 1 Tablet(s) PO daily No Start Date 10/10/2011 Inactive Fish Oil 1,000 mg capsule RxNorm: 3 Capsule(s) PO daily No Start Date 12/20/2015 Inactive amiodarone 400 mg tablet RxNorm: 327007 1 Tablet(s) PO daily No Start Date 12/09/2017 Inactive digoxin 125 mcg tablet RxNorm: 9633121 1 Tablet(s) PO daily No Start Date 08/04/2013 Inactive Brilinta 90 mg Tab RxNorm: 8249857 1 Tablet(s) PO daily No Start Date 10/10/2011 Inactive Fish Oil 1,000 mg Cap RxNorm: 3 Capsule(s) PO daily No Start Date 12/21/2015 Inactive Flintstones Complete 18 mg iron chewable tablet RxNorm: 2 Tablet(s) PO daily No Start Date 12/20/2015 Inactive Niaspan Extended-Release 500 mg 24 hr Tab RxNorm: 2441017 1 Tablet(s) PO daily No Start Date 09/24/2011 Inactive samples tramadol 50 mg tablet RxNorm: 872524 1 Tablet(s) PO TID No Start Date 05/14/2017 Inactive aspirin 81 mg Cap, Delayed Release RxNorm: 641655 Capsule(s) PO daily No Start Date 05/01/2012 Inactive pantoprazole 40 mg tablet,delayed release RxNorm: 590222 1 Tablet(s) PO daily No Start Date 05/26/2018 Inactive metformin 500 mg Tab RxNorm: 524264 1 Tablet(s) PO BID No Start Date 05/04/2011 Inactive Singulair 10 mg tablet RxNorm: 461167 1 Tablet(s) PO daily No Start Date 05/26/2018 Inactive Prilosec OTC 20 mg tablet,delayed release RxNorm: 473657 1 Tablet(s) PO daily No Start Date 10/31/2016 Inactive Zantac 150 mg Tab RxNorm: 998012 1 Tablet(s) PO BID No Start Date 10/10/2011 Inactive Synthroid 88 mcg Tab RxNorm: 925424 1 Tablet(s) PO daily No Start Date 06/05/2011 Inactive Plavix 75 mg Tab RxNorm: 086406 1 Tablet(s) PO daily No Start Date 10/31/2011 Inactive amiodarone 200 mg tablet RxNorm: 332076 1 Tablet(s) PO BID No Start Date 01/20/2018 Inactive Cartia XT 120 mg capsule,extended release RxNorm: 424053 1 Capsule(s) PO daily and 1 QPM if HR above [address] Dr Aguilar manages No Start Date 05/26/2018 Inactive aspirin 81 mg Cap, Delayed Release RxNorm: 952420 1 Capsule(s) PO daily No Start Date 10/01/2011 Inactive Lipitor 80 mg Tab RxNorm: 259462 1 Tablet(s) PO daily No Start Date 10/17/2011 Inactive Symbicort 160 mcg-4.5 mcg/Actuation HFA Aerosol Inhaler RxNorm: 8638466 1 INH No Start Date 01/05/2015 Inactive Medication Administered Medication Codes Instructions Start Date Status Kenalog 40 mg/mL suspension for injection RxNorm: 9811667 1.5Milliliter 10/30/2017 No longer Active ketorolac 60 mg/2 mL intramuscular solution RxNorm: 682659 2Milliliter 05/14/2017 No longer Active Kenalog 40 mg/mL suspension for injection RxNorm: 8085412 Milliliter 03/06/2017 No longer Active Kenalog 40 mg/mL suspension for injection RxNorm: 3722521 1.5Milliliter 09/04/2016 No longer Active Kenalog 40 mg/mL suspension for injection RxNorm: 4164731 1Milliliter 11/11/2015 No longer Active Kenalog 40 mg/mL suspension for injection RxNorm: 2684309 1Milliliter 10/25/2015 No longer Active Kenalog 40 mg/mL suspension for injection RxNorm: 3937342 Milliliter 08/17/2014 No longer Active Kenalog 40 mg/mL suspension for injection RxNorm: 4946111 Milliliter 04/13/2014 No longer Active Kenalog 40 mg/mL Susp for Injection RxNorm: 4540760 1Milliliter 10/07/2012 No longer Active Influenza Virus Vaccine 0.5 mL RxNorm: 03/26/2012 No longer Active Pneumovax 23 25 mcg/0.5 mL Injection RxNorm: 505945 Milliliter 03/26/2012 No longer Active Kenalog 40 mg/mL Susp for Injection RxNorm: 1244122 2Milliliter 07/31/2011 No longer Active Influenza Virus [...] Item Item Code Result Date Free T4 Vox234 FREE T4 1.66 ng/dL 05/09/2018 Tsh Ord6 TSH (3rd IS) 2.15 uIU/mL 05/09/2018 Cbc With Differential Ord2 WBC 6.54 K/ul 05/09/2018 Cbc With Differential Ord2 RBC 4.65 M/ul 05/09/2018 Cbc With Differential Ord2 HGB 12.8 g/dl 05/09/2018 Cbc With Differential Ord2 Neut% 58.5 % 05/09/2018 Cbc With Differential Ord2 HCT 40.6 % 05/09/2018 Cbc With Differential Ord2 MCV 87.3 fl 05/09/2018 Cbc With Differential Ord2 Lymph% 18.0 % 05/09/2018 Cbc With Differential Ord2 [place]% 11.6 % 05/09/2018 Cbc With Differential Ord2 MCH 27.5 pg 05/09/2018 Cbc With Differential Ord2 MCHC 31.5 pg 05/09/2018 Cbc With Differential Ord2 Eos% 10.2 % 05/09/2018 Cbc With Differential Ord2 PLT 355 K/ul 05/09/2018 Cbc With Differential Ord2 Baso% 1.7 % 05/09/2018 Cbc With Differential Ord2 RDW 16.4 % 05/09/2018 Cbc With Differential Ord2 Neut ABS# 3.82 K/ul 05/09/2018 Cbc With Differential Ord2 Lymph ABS# 1.18 K/ul 05/09/2018 Cbc With Differential Ord2 [place] ABS# 0.8 K/ul 05/09/2018 Cbc With Differential [...] Metabolic Ord15 CALCIUM 9.3 mg/dL 05/09/2018 %Hba1C Nch444 % HbA1c 87066- 6 8.9 % 05/09/2018 %Hba1C Yss350 Gluc Ave 209 mg/dL 05/09/2018 LIPID GRP CHOLESTEROL 184 mg/dL 01/14/2018 LIPID GRP Triglyceride 65 mg/dL 01/14/2018 LIPID GRP HDL CHOLESTEROL 53 mg/dL 01/14/2018 LIPID GRP 1882954 Chol/HDL Ratio 3.47 ratio 01/14/2018 LIPID GRP 2366138 NON-HDL Chol 131 mg/dL 01/14/2018 LIPID GRP 8757296 LDL Cholesterol 118 mg/dL 01/14/2018 A1C HPLC 4232225 Hgb A1c 37193-3 6.5 % 01/14/2018 CBC 7708137 WBC 5.8 10e9/L 01/14/2018 CBC 3421240 RBC 4.67 10e12/L 01/14/2018 CBC 8598935 HEMOGLOBIN 12.4 g/dL 01/14/2018 CBC 3363770 HEMATOCRIT 40.6 % 01/14/2018 CBC 8774476 MCV 86.9 fL 01/14/2018 CBC 6150440 MCH 26.6 pg 01/14/2018 CBC 8438784 MCHC 30.5 g/dL 01/14/2018 CBC 5570760 PLATELET COUNT 419 10e9/L 01/14/2018 CBC 9578402 Mean Plt Volume 10.1 fL 01/14/2018 CBC 3133903 Neut Auto 60.7 % 01/14/2018 CBC 9271853 Lymph Auto 24.8 % 01/14/2018 CBC 7563105 [place] Auto 9.7 % 01/14/2018 CBC 3302074 RDW 25.0 % 01/14/2018 CBC 5984505 Eos Auto 3.4 % 01/14/2018 CBC 4307374 Baso Auto 1.4 % 01/14/2018 CBC 4437559 Neutrophil Abs 3.52 10e9/L 01/14/2018 CBC 2812214 Lymphocyte Abs 1.44 10e9/L 01/14/2018 CBC 1253827 Monocyte Abs 0.56 10e9/L 01/14/2018 CBC 7674310 Eosinophil Abs 0.20 10e9/L 01/14/2018 CBC 8490959 Basophil Abs 0.08 10e9/L 01/14/2018 CBC 8633259 RDW-SD 75.4 fL 01/14/2018 MEAN GLUC 9883111 Calc Mean Gluc 140 mg/dL 01/14/2018 Culture Urine [id number] URINE CULTURE SEE NOTES 01/03/2018 Culture Urine [id number] Continued Results 01/03/2018 Urine Culture Ucult Complete [...] 33.3 % 11/20/2017 Cbc With Differential Ord2 MCV 81.0 fl 11/20/2017 Cbc With Differential Ord2 Lymph% 18.0 % 11/20/2017 Cbc With Differential Ord2 MCH 24.8 pg 11/20/2017 Cbc With Differential Ord2 Woodson% 7.9 % 11/20/2017 Cbc With Differential Ord2 [...] 1.65 K/ul 11/20/2017 Cbc With Differential Ord2 [place] ABS# 0.7 K/ul 11/20/2017 Cbc With Differential Ord2 Eos ABS# 0.3 K/ul 11/20/2017 Cbc With Differential Ord2 Baso ABS# 0.1 K/ul 11/20/2017 Comp Metabolic Nss712 NA 142 mEq/L 11/20/2017 Comp Metabolic Tqp024 K 4.1 mEq/L 11/20/2017 Comp Metabolic Txy615 CL 104 mEq/L 11/20/2017 Comp Metabolic Xlk208 CO2 29.0 mEq/L 11/20/2017 Comp Metabolic Ttz288 ANION GAP 13 11/20/2017 Comp Metabolic Csh324 GLUCOSE 178 mg/dL 11/20/2017 Comp Metabolic Itj672 Creat 0.6 mg/dL 11/20/2017 Comp Metabolic Qdx149 eGFR 112 ml/min/1.73m2 11/20/2017 Comp Metabolic Sgz519 BUN 19 mg/dL 11/20/2017 Comp Metabolic Jly733 B/C Ratio 33.9 Ratio 11/20/2017 Comp Metabolic Xzl460 CALCIUM 9.3 mg/dL 11/20/2017 Comp Metabolic Irp385 ALK PHOS 60 U/L 11/20/2017 Comp Metabolic Rab796 AST(SGOT) 13 U/L 11/20/2017 Comp Metabolic Gtb277 ALT(SGPT) 14 U/L 11/20/2017 Comp Metabolic Gml121 BILI T 0.4 mg/dL 11/20/2017 Comp Metabolic Gnd188 ALBUMIN 4.1 g/dL 11/20/2017 Comp Metabolic Bgo627 TPRO 6.0 g/dL 11/20/2017 Comp Metabolic Yfy192 GLOB 1.9 g/dL 11/20/2017 Comp Metabolic Wxa443 A/G Ratio 2.2 Ratio 11/20/2017 Comp Metabolic Bah750 Osmo 290 mOsmo 11/20/2017 Cbc With Differential Ord2 WBC 10.77 K/ul 11/13/2017 Cbc With Differential Ord2 RBC 4.19 M/ul 11/13/2017 Cbc With Differential Ord2 HGB 10.4 g/dl 11/13/2017 Cbc With Differential Ord2 Neut% 74.7 % 11/13/2017 Cbc With Differential Ord2 HCT 34.0 % 11/13/2017 Cbc With Differential Ord2 MCV 81.1 fl 11/13/2017 Cbc With Differential Ord2 Lymph% 14.6 % 11/13/2017 Cbc With Differential Ord2 MCH 24.8 pg 11/13/2017 Cbc With Differential Ord2 [place]% 7.8 % 11/13/2017 Cbc With Differential Ord2 Eos% 2.3 % 11/13/2017 Cbc With Differential Ord2 MCHC 30.6 pg 11/13/2017 Cbc With Differential Ord2 PLT 458 K/ul 11/13/2017 Cbc With Differential Ord2 Baso% 0.6 % 11/13/2017 Cbc With Differential Ord2 Neut ABS# 8.04 K/ul 11/13/2017 Cbc With Differential Ord2 RDW 15.2 % 11/13/2017 Cbc With Differential Ord2 Lymph ABS# 1.57 K/ul 11/13/2017 Cbc With Differential Ord2 [place] ABS# 0.8 K/ul 11/13/2017 Cbc With Differential Ord2 Eos ABS# 0.3 K/ul 11/13/2017 Cbc With Differential Ord2 Baso ABS# 0.1 K/ul 11/13/2017 Comp Metabolic Duj571 NA 142 mEq/L 11/13/2017 Comp Metabolic Zvs084 K 4.2 mEq/L 11/13/2017 Comp Metabolic Sdv362 CL 104 mEq/L 11/13/2017 Comp Metabolic Xlx236 CO2 26.0 mEq/L 11/13/2017 Comp Metabolic Aak754 ANION GAP 16 11/13/2017 Comp Metabolic Ezf277 GLUCOSE 115 mg/dL 11/13/2017 Comp Metabolic Nkh102 Creat 0.6 mg/dL 11/13/2017 Comp Metabolic Zay194 eGFR 114 ml/min/1.73m2 11/13/2017 Comp Metabolic Kjh688 BUN 15 mg/dL 11/13/2017 Comp Metabolic Wpd506 B/C Ratio 27.3 Ratio 11/13/2017 Comp Metabolic Png352 CALCIUM 9.2 mg/dL 11/13/2017 Comp Metabolic Ssc384 ALK PHOS 59 U/L 11/13/2017 Comp Metabolic Fqb203 AST(SGOT) 12 U/L 11/13/2017 Comp Metabolic Gev196 ALT(SGPT) 13 U/L 11/13/2017 Comp Metabolic Onw471 BILI T 0.5 mg/dL 11/13/2017 Comp Metabolic Qxw346 ALBUMIN 4.0 g/dL 11/13/2017 Comp Metabolic Sdu149 TPRO 6.0 g/dL 11/13/2017 Comp Metabolic Yeg331 GLOB 2.0 g/dL 11/13/2017 Comp Metabolic Eel273 A/G Ratio 2.0 Ratio 11/13/2017 Comp Metabolic Erc051 Osmo 285 mOsmo 11/13/2017 Cbc With Differential Ord2 WBC 9.05 K/ul 09/20/2017 Cbc With Differential Ord2 RBC 4.31 M/ul 09/20/2017 Cbc With Differential Ord2 HGB 11.6 g/dl 09/20/2017 Cbc With Differential Ord2 Neut% 68.0 % 09/20/2017 Cbc With Differential Ord2 HCT 37.4 % 09/20/2017 Cbc With Differential Ord2 MCV 86.8 fl 09/20/2017 Cbc With Differential Ord2 Lymph% 17.1 % 09/20/2017 Cbc With Differential Ord2 MCH 26.9 pg 09/20/2017 Cbc With Differential Ord2 [place]% 9.9 % 09/20/2017 Cbc With Differential Ord2 MCHC 31.0 pg 09/20/2017 Cbc With Differential Ord2 Eos% 4.2 % 09/20/2017 Cbc With Differential Ord2 Baso% 0.8 % 09/20/2017 Cbc With Differential Ord2 PLT 392 K/ul 09/20/2017 Cbc With Differential Ord2 RDW 15.9 % 09/20/2017 Cbc With Differential Ord2 Neut ABS# 6.15 K/ul 09/20/2017 Cbc With Differential Ord2 Lymph ABS# 1.55 K/ul 09/20/2017 Cbc With Differential Ord2 [place] ABS# 0.9 K/ul 09/20/2017 Cbc With Differential Ord2 Eos ABS# 0.4 K/ul 09/20/2017 Cbc With Differential Ord2 Baso ABS# 0.1 K/ul 09/20/2017 Comp Metabolic Bfi954 NA 138 mEq/L 09/20/2017 Comp Metabolic Tmn538 K 4.0 mEq/L 09/20/2017 Comp Metabolic Fzu664 CL 99 mEq/L 09/20/2017 Comp Metabolic Xcd984 CO2 26.0 mEq/L 09/20/2017 Comp Metabolic Zzp266 ANION GAP 17 09/20/2017 Comp Metabolic Yfb576 GLUCOSE 275 mg/dL 09/20/2017 Comp Metabolic Bse108 Creat 0.6 mg/dL 09/20/2017 Comp Metabolic Mqx442 eGFR 96 ml/min/1.73m2 09/20/2017 Comp Metabolic Apa882 BUN 17 mg/dL 09/20/2017 Comp Metabolic Cia066 B/C Ratio 26.6 Ratio 09/20/2017 Comp Metabolic Zfe600 CALCIUM 9.5 mg/dL 09/20/2017 Comp Metabolic Faq005 ALK PHOS 57 U/L 09/20/2017 Comp Metabolic Zfr455 AST(SGOT) 13 U/L 09/20/2017 Comp Metabolic Rwv708 ALT(SGPT) 13 U/L 09/20/2017 Comp Metabolic Pti268 BILI T 0.5 mg/dL 09/20/2017 Comp Metabolic Mpo442 ALBUMIN 4.1 g/dL 09/20/2017 Comp Metabolic Egh953 TPRO 5.9 g/dL 09/20/2017 Comp Metabolic Hna440 GLOB 1.8 g/dL 09/20/2017 Comp Metabolic Lta298 A/G Ratio 2.3 Ratio 09/20/2017 Comp Metabolic Fqm654 Osmo 287 mOsmo 09/20/2017 %Hba1C Ydj284 % HbA1c 65179- 6 7.2 % 09/20/2017 %Hba1C Esv865 Gluc Ave 160 mg/dL 09/20/2017 MEAN GLUC 1669458 Calc Mean Gluc 169 mg/dL 02/28/2017 CBC 3230930 WBC 7.6 10e9/L 02/28/2017 CBC 7922278 RBC 4.91 10e12/L 02/28/2017 CBC 9891564 HEMOGLOBIN 13.2 g/dL 02/28/2017 CBC 6770022 HEMATOCRIT 42.7 % 02/28/2017 CBC 2069716 MCV 87.0 fL 02/28/2017 CBC 4143875 MCH 26.9 pg 02/28/2017 CBC 8236800 MCHC 30.9 g/dL 02/28/2017 CBC 4749844 PLATELET COUNT 341 10e9/L 02/28/2017 CBC 7262546 Mean Plt Volume 10.7 fL 02/28/2017 CBC 8804464 Neut Auto 62.1 % 02/28/2017 CBC 7162484 Lymph Auto 20.2 % 02/28/2017 CBC 9965471 [place] Auto 9.3 % 02/28/2017 CBC 3721779 Eos Auto 7.1 % 02/28/2017 CBC 2722038 RDW 15.8 % 02/28/2017 CBC 3937823 Baso Auto 1.3 % 02/28/2017 CBC 2896264 Neutrophil Abs 4.72 10e9/L 02/28/2017 CBC 6040464 Lymphocyte Abs 1.54 10e9/L 02/28/2017 CBC 6720291 Monocyte Abs 0.71 10e9/L 02/28/2017 CBC 5210891 Eosinophil Abs 0.54 10e9/L 02/28/2017 CBC 5498749 RDW-SD 49.0 fL 02/28/2017 CBC 9850631 Basophil Abs 0.10 10e9/L 02/28/2017 LIPID GRP CHOLESTEROL 189 mg/dL 02/28/2017 LIPID GRP Triglyceride 124 mg/dL 02/28/2017 LIPID GRP HDL CHOLESTEROL 43 mg/dL 02/28/2017 LIPID GRP Chol/HDL Ratio 4.40 ratio 02/28/2017 LIPID GRP NON-HDL Chol 146 mg/dL 02/28/2017 LIPID GRP LDL Cholesterol 121 mg/dL 02/28/2017 A1C HPLC 8189297 Hgb A1c 57236-9 7.5 % 02/28/2017 GFR CALC 6533935 GFR Non Afr Amr >60 mL/min 02/28/2017 GFR CALC 3426167 GFR Afr Amr >60 mL/min 02/28/2017 CHEM 14 2568543 AST 15 U/L 02/28/2017 CHEM 14 3760518 ALT 16 U/L 02/28/2017 CHEM 14 5815228 BUN 18 mg/dL 02/28/2017 CHEM 14 7035648 ALBUMIN 4.0 g/dL 02/28/2017 CHEM 14 9949716 CHLORIDE 104 mmol/L 02/28/2017 CHEM 14 1545330 Bili Total 0.6 mg/dL 02/28/2017 CHEM 14 6422825 ALK PHOS 53 U/L 02/28/2017 CHEM 14 2295899 SODIUM 143 mmol/L 02/28/2017 CHEM 14 2381226 CREATININE 0.66 mg/dL 02/28/2017 CHEM 14 5961190 CALCIUM 9.2 mg/dL 02/28/2017 CHEM 14 0355069 POTASSIUM 3.9 mmol/L 02/28/2017 CHEM 14 7904819 TOTAL PROTEIN 6.6 g/dL 02/28/2017 CHEM 14 6439523 GLUCOSE 146 mg/dL 02/28/2017 CHEM 14 4803244 Bicarbonate 30 mmol/L 02/28/2017 CHEM 14 7826090 AGAP 9 mmol/L 02/28/2017 CBC 7676287 WBC 6.8 10e9/L 08/21/2016 CBC 0130317 RBC 4.87 10e12/L 08/21/2016 CBC 2848375 HEMOGLOBIN 12.7 g/dL 08/21/2016 CBC 3196702 HEMATOCRIT 40.5 % 08/21/2016 CBC 4917904 MCV 83.2 fL 08/21/2016 CBC 6180143 MCH 26.1 pg 08/21/2016 CBC 0811468 MCHC 31.4 g/dL 08/21/2016 CBC 9268717 PLATELET COUNT 334 10e9/L 08/21/2016 CBC 0414169 Mean Plt Volume 10.5 fL 08/21/2016 CBC 9913259 Neut Auto 56.4 % 08/21/2016 CBC 5070529 Lymph Auto 23.5 % 08/21/2016 CBC 1167997 [place] Auto 9.7 % 08/21/2016 CBC 2886257 Eos Auto 9.5 % 08/21/2016 CBC 3078521 RDW 16.6 % 08/21/2016 CBC 1777586 Baso Auto 0.9 % 08/21/2016 CBC 4312239 Neutrophil Abs 3.84 10e9/L 08/21/2016 CBC 0360668 Lymphocyte Abs 1.60 10e9/L 08/21/2016 CBC 6427778 Monocyte Abs 0.66 10e9/L 08/21/2016 CBC 6303234 Eosinophil Abs 0.65 10e9/L 08/21/2016 CBC 4046830 Basophil Abs 0.06 10e9/L 08/21/2016 CBC 5136523 RDW-SD 49.7 fL 08/21/2016 FREE T4 2827668 T4 Free 1.39 ng/dL 08/21/2016 LIPID GRP CHOLESTEROL 211 mg/dL 08/21/2016 LIPID GRP Triglyceride 105 mg/dL 08/21/2016 LIPID GRP HDL CHOLESTEROL 45 mg/dL 08/21/2016 LIPID GRP Chol/HDL Ratio 4.69 ratio 08/21/2016 LIPID GRP NON-HDL Chol 166 mg/dL 08/21/2016 LIPID GRP LDL Cholesterol 145 mg/dL 08/21/2016 A1C HPLC 0496871 Hgb A1c 53308-6 7.4 % 08/21/2016 GFR CALC 0565561 GFR Non Afr Amr >60 mL/min 08/21/2016 GFR CALC 4893785 GFR Afr Amr >60 mL/min 08/21/2016 CHEM 14 2130739 AST 16 U/L 08/21/2016 CHEM 14 3233650 ALT 14 U/L 08/21/2016 CHEM 14 5325398 BUN 14 mg/dL 08/21/2016 CHEM 14 4245441 ALBUMIN 4.1 g/dL 08/21/2016 CHEM 14 1982649 CHLORIDE 105 mmol/L 08/21/2016 CHEM 14 8545403 Bili Total 0.5 mg/dL 08/21/2016 CHEM 14 4277514 ALK PHOS 53 U/L 08/21/2016 CHEM 14 8257698 SODIUM 141 mmol/L 08/21/2016 CHEM 14 7024150 CREATININE 0.66 mg/dL 08/21/2016 CHEM 14 3067163 CALCIUM 9.3 mg/dL 08/21/2016 CHEM 14 4337762 POTASSIUM 4.0 mmol/L 08/21/2016 CHEM 14 3067902 TOTAL PROTEIN 6.6 g/dL 08/21/2016 CHEM 14 5294934 GLUCOSE 145 mg/dL 08/21/2016 CHEM 14 3535145 Bicarbonate 29 mmol/L 08/21/2016 CHEM 14 3264733 AGAP 7 mmol/L 08/21/2016 TSH 0373983 TSH 1.485 uIU/mL 08/21/2016 MEAN GLUC 2804798 Calc Mean Gluc 166 mg/dL 08/21/2016 Cbc [...] 22.8 % 04/24/2016 Cbc With Differential Ord2 [place]% 10.9 % 04/24/2016 Cbc With Differential Ord2 [...] 1.49 K/ul 04/24/2016 Cbc With Differential Ord2 [place] ABS# 0.7 K/ul 04/24/2016 Cbc With Differential Ord2 Eos ABS# 0.7 K/ul 04/24/2016 Cbc With Differential Ord2 Baso ABS# 0.1 K/ul 04/24/2016 Comp Metabolic Jiw808 NA 138 mEq/L 04/24/2016 Comp Metabolic Hgu496 K 4.3 mEq/L 04/24/2016 Comp Metabolic Znj797 CL 103 mEq/L 04/24/2016 Comp Metabolic Qvw891 CO2 28.0 mEq/L 04/24/2016 Comp Metabolic Orw868 ANION GAP 11 04/24/2016 Comp Metabolic Kxj603 GLUCOSE 138 mg/dL 04/24/2016 Comp Metabolic Qhj209 Creat 0.6 mg/dL 04/24/2016 Comp Metabolic Xrf719 eGFR 98 ml/min/1.73m2 04/24/2016 Comp Metabolic Osy139 BUN 16 mg/dL 04/24/2016 Comp Metabolic Cbp163 B/C Ratio 25.4 Ratio 04/24/2016 Comp Metabolic Jmk298 CALCIUM 9.2 mg/dL 04/24/2016 Comp Metabolic Wjo194 ALK PHOS 55 U/L 04/24/2016 Comp Metabolic Qar333 AST(SGOT) 16 U/L 04/24/2016 Comp Metabolic Rsx259 ALT(SGPT) 16 U/L 04/24/2016 Comp Metabolic Dow616 BILI T 0.6 mg/dL 04/24/2016 Comp Metabolic Ewz698 ALBUMIN 3.9 g/dL 04/24/2016 Comp Metabolic Cai489 TPRO 6.1 g/dL 04/24/2016 Comp Metabolic Xiz147 GLOB 2.2 g/dL 04/24/2016 Comp Metabolic Kug853 A/G Ratio 1.7 Ratio 04/24/2016 Comp Metabolic Vbu765 Osmo 279 mOsmo 04/24/2016 Lipid Ord30 CHOL 208 mg/dL 04/24/2016 Lipid Ord30 HDL 42.0 mg/dl 04/24/2016 Lipid Ord30 TRIG 98 mg/dL 04/24/2016 Lipid Ord30 LDL 146 mg/dL 04/24/2016 Lipid Ord30 C/HDL 5.0 Ratio 04/24/2016 %Hba1C Asm930 % HbA1c 89240- 6 7.5 % 04/24/2016 %Hba1C Oqx269 Gluc Ave 169 mg/dL 04/24/2016 Tsh Ord6 hTSH II 0.82 uIU/mL 04/24/2016 Free T4 Zce458 FREE T4 1.17 ng/dL 04/24/2016 Digoxin Ord9 DIGOXIN 0.9 NG/ML 02/03/2016 Free T4 Zcz691 FREE T4 1.17 ng/dL 12/07/2015 %Hba1C Nxo723 % HbA1c 16974- 6 7.5 % 12/07/2015 %Hba1C Nmn788 Gluc Ave 169 mg/dL 12/07/2015 Tsh Ord6 [...] 25.5 pg 12/07/2015 Cbc With Differential Ord2 [place]% 9.3 % 12/07/2015 Cbc With Differential Ord2 [...] 1.23 K/ul 12/07/2015 Cbc With Differential Ord2 [place] ABS# 0.7 K/ul 12/07/2015 Cbc With Differential Ord2 Eos ABS# 0.3 K/ul 12/07/2015 Cbc With Differential Ord2 Baso ABS# 0.1 K/ul 12/07/2015 Lipid Ord30 CHOL 196 mg/dL 12/07/2015 Lipid Ord30 HDL 41.0 mg/dl 12/07/2015 Lipid Ord30 TRIG 142 mg/dL 12/07/2015 Lipid Ord30 LDL 127 mg/dL 12/07/2015 Lipid Ord30 C/HDL 4.8 Ratio 12/07/2015 Comp Metabolic Qmm030 NA 139 mEq/L 12/07/2015 Comp Metabolic Ejo672 K 4.3 mEq/L 12/07/2015 Comp Metabolic Aqz969 CL 101 mEq/L 12/07/2015 Comp Metabolic Msa556 CO2 33.0 mEq/L 12/07/2015 Comp Metabolic Bzh122 ANION GAP 9 12/07/2015 Comp Metabolic Yui250 GLUCOSE 159 mg/dL 12/07/2015 Comp Metabolic Ulk506 Creat 0.6 mg/dL 12/07/2015 Comp Metabolic Urn725 eGFR 108 ml/min/1.73m2 12/07/2015 Comp Metabolic Hkh987 BUN 13 mg/dL 12/07/2015 Comp Metabolic Qpi232 B/C Ratio 22.4 Ratio 12/07/2015 Comp Metabolic Gts612 CALCIUM 9.0 mg/dL 12/07/2015 Comp Metabolic Inq081 ALK PHOS 60 U/L 12/07/2015 Comp Metabolic Pnf486 AST(SGOT) 16 U/L 12/07/2015 Comp Metabolic Dev873 ALT(SGPT) 19 U/L 12/07/2015 Comp Metabolic Fcz217 BILI T 0.6 mg/dL 12/07/2015 Comp Metabolic Rls737 ALBUMIN 4.0 g/dL 12/07/2015 Comp Metabolic Hmr246 TPRO 6.0 g/dL 12/07/2015 Comp Metabolic Nmy521 GLOB 2.0 g/dL 12/07/2015 Comp Metabolic Lau613 A/G Ratio 1.9 Ratio 12/07/2015 Comp Metabolic Fsi879 Osmo 281 mOsmo 12/07/2015 Free T4 Cga199 FREE T4 1.31 ng/dL 06/14/2015 Cbc With Differential Ord2 WBC 5.8 [...] Ord6 hTSH II 1.10 uIU/mL 06/14/2015 %Hba1C Lpb959 % HbA1c 20822- 6 6.8 % 06/14/2015 %Hba1C Tnv280 Gluc Ave 148 mg/dL 06/14/2015 CHEM 14 0620800 AST 14 U/L 12/07/2014 CHEM 14 2415465 ALT 12 IU/L 12/07/2014 CHEM 14 0660819 BUN 12 MG/DL 12/07/2014 CHEM 14 8030818 ALBUMIN 3.9 GM/DL 12/07/2014 CHEM 14 2342262 CHLORIDE 103 MMOL/L 12/07/2014 CHEM 14 8623069 BILI TOT 0.6 MG/DL 12/07/2014 CHEM 14 3096348 ALK PHOS 49 U/L 12/07/2014 CHEM 14 2607181 SODIUM 140 MMOL/L 12/07/2014 CHEM 14 9912482 CREATININE 0.57 MG/DL 12/07/2014 CHEM 14 3528757 CALCIUM 9.5 MG/DL 12/07/2014 CHEM 14 5441070 POTASSIUM 4.0 MMOL/L 12/07/2014 CHEM 14 3779119 PROT TOT 6.5 GM/DL 12/07/2014 CHEM 14 8365999 GLUCOSE 110 MG/DL 12/07/2014 CHEM 14 6554314 BICARB 29 MMOL/L 12/07/2014 CHEM 14 0772710 ANION GAP 8 MEQ/L 12/07/2014 A1C HPLC 6526530 A1C HPLC 34052-2 6.4 % 12/07/2014 TSH 0935897 TSH 1.106 uIU/ML 12/07/2014 LIPID GRP HDL TEST 46 MG/DL 12/07/2014 LIPID GRP TRIG 119 MG/DL 12/07/2014 LIPID GRP TEST LDL 108 MG/DL 12/07/2014 LIPID GRP CHOL 178 MG/DL 12/07/2014 LIPID GRP RCHOL/HDL 3.87 RATIO 12/07/2014 LIPID GRP 0816266 NON-HDL CH 132 MG/DL 12/07/2014 CBC 2798208 WBC 6.4 10e9/L 12/07/2014 CBC 6210313 RBC 4.51 10e12/L 12/07/2014 CBC 3925814 HGB 12.2 g/dL 12/07/2014 CBC 5940849 HCT DET 39.0 % 12/07/2014 CBC 6709261 MCV 86.5 fL 12/07/2014 CBC 6494203 MCH 27.1 pg 12/07/2014 CBC 4721164 MCHC 31.3 g/dL 12/07/2014 CBC 6250584 PLT 325 10e9/L 12/07/2014 CBC 1937547 MPV 10.4 fL 12/07/2014 CBC 6342582 TIM % 62.0 % 12/07/2014 CBC 9167515 LY % 21.4 % 12/07/2014 CBC 3988930 MON % 9.5 % 12/07/2014 CBC 9711432 EOS % 6.3 % 12/07/2014 CBC 7560912 BASO % 0.8 % 12/07/2014 CBC 6811581 RDW 15.8 % 12/07/2014 CBC 3903007 ABS TIM 3.97 10e9/L 12/07/2014 CBC 9732126 ABS LYMPH 1.37 10e9/L 12/07/2014 CBC 4280655 ABS MONO 0.61 10e9/L 12/07/2014 CBC 8506630 ABS EOS 0.40 10e9/L 12/07/2014 CBC 8642907 ABS BASO 0.05 10e9/L 12/07/2014 CBC 7281724 RDW-SD 48.8 fL 12/07/2014 FREE T4 1147626 FREE T4 1.37 NG/DL 12/07/2014 GFR CALC 6706438 GFR AA >60 ML/MIN 12/07/2014 GFR CALC 5047643 GFR NON-AA >60 ML/MIN 12/07/2014 CHEM 14 1061070 AST 17 U/L 11/04/2013 CHEM 14 3154160 ALT 16 IU/L 11/04/2013 CHEM 14 5076772 BUN 13 MG/DL 11/04/2013 CHEM 14 0622089 ALBUMIN 4.3 GM/DL 11/04/2013 CHEM 14 4450037 CHLORIDE 104 MMOL/L 11/04/2013 CHEM 14 2656732 BILI TOT 0.7 MG/DL 11/04/2013 CHEM 14 4060412 ALK PHOS 67 U/L 11/04/2013 CHEM 14 9696669 SODIUM 140 MMOL/L 11/04/2013 CHEM 14 1258547 CREATININE 0.64 MG/DL 11/04/2013 CHEM 14 9332128 CALCIUM 9.5 MG/DL 11/04/2013 CHEM 14 4291495 POTASSIUM 4.0 MMOL/L 11/04/2013 CHEM 14 9413042 PROT TOT 6.1 GM/DL 11/04/2013 CHEM 14 0521654 GLUCOSE 157 MG/DL 11/04/2013 CHEM 14 3495844 BICARB 27 MMOL/L 11/04/2013 CHEM 14 2486802 ANION GAP 9 MEQ/L 11/04/2013 FREE T4 2761459 FREE T4 1.44 NG/DL 11/04/2013 GFR CALC 6900822 GFR AA >60 ML/MIN 11/04/2013 GFR CALC 7979287 GFR NON-AA >60 ML/MIN 11/04/2013 TSH 5697046 TSH 0.841 uIU/ML 11/04/2013 A1C HPLC 7034416 A1C HPLC 11802-8 7.2 % 11/04/2013 LIPID GRP HDL TEST 45 MG/DL 11/04/2013 LIPID GRP TRIG 104 MG/DL 11/04/2013 LIPID GRP TEST LDL 82 MG/DL 11/04/2013 LIPID GRP CHOL 148 MG/DL 11/04/2013 LIPID GRP RCHOL/HDL 3.29 RATIO 11/04/2013 CBC 5288340 WBC 6.2 10e9/L 11/04/2013 CBC 4679481 RBC 4.38 10e12/L 11/04/2013 CBC 2127008 HGB 11.8 g/dL 11/04/2013 CBC 9152010 HCT DET 37.5 % 11/04/2013 CBC 2552982 MCV 85.6 fL 11/04/2013 CBC 0346173 MCH 26.9 pg 11/04/2013 CBC 1518442 MCHC 31.5 g/dL 11/04/2013 CBC 8884621 PLT 330 10e9/L 11/04/2013 CBC 7825197 MPV 10.6 fL 11/04/2013 CBC 4976124 TIM % 60.8 % 11/04/2013 CBC 7908029 LY % 22.1 % 11/04/2013 CBC 3668166 MON % 9.6 % 11/04/2013 CBC 9071912 EOS % 6.4 % 11/04/2013 CBC 9480070 BASO % 1.1 % 11/04/2013 CBC 1122135 RDW 15.6 % 11/04/2013 CBC 1372693 ABS TIM 3.77 10e9/L 11/04/2013 CBC 4496165 ABS LYMPH 1.37 10e9/L 11/04/2013 CBC 9288263 ABS MONO 0.60 10e9/L 11/04/2013 CBC 4464167 ABS EOS 0.40 10e9/L 11/04/2013 CBC 4484828 ABS BASO 0.07 10e9/L 11/04/2013 CBC 5137351 RDW-SD 48.0 fL 11/04/2013 DIGOXIN 4296100 DIGOXIN 0.5 NG/ML 11/04/2013 A1C HPLC 5266529 A1C HPLC 64278-5 7.6 % 07/28/2013 LIPID GRP HDL TEST 38 MG/DL 07/28/2013 LIPID GRP TRIG 137 MG/DL 07/28/2013 LIPID GRP TEST LDL 73 MG/DL 07/28/2013 LIPID GRP CHOL 138 MG/DL 07/28/2013 LIPID GRP RCHOL/HDL 3.63 RATIO 07/28/2013 LIVER PNL 3662883 BILI DIR 0.2 MG/DL 07/28/2013 DIGOXIN 8821357 DIGOXIN 0.4 NG/ML 07/28/2013 CBC 2201425 WBC 7.2 10e9/L 07/28/2013 CBC 4488968 RBC 4.65 10e12/L 07/28/2013 CBC 0082514 HGB 12.6 g/dL 07/28/2013 CBC 6630635 HCT DET 39.6 % 07/28/2013 CBC 2900662 MCV 85.2 fL 07/28/2013 CBC 0443752 MCH 27.1 pg 07/28/2013 CBC 0322706 MCHC 31.8 g/dL 07/28/2013 CBC 1653176 PLT 344 10e9/L 07/28/2013 CBC 4317095 MPV 10.7 fL 07/28/2013 CBC 9013109 TIM % 61.4 % 07/28/2013 CBC 7033030 LY % 22.4 % 07/28/2013 CBC 7101755 MON % 8.4 % 07/28/2013 CBC 1522655 EOS % 6.8 % 07/28/2013 CBC 6784969 BASO % 1.0 % 07/28/2013 CBC 6327331 RDW 15.5 % 07/28/2013 CBC 2476554 ABS TIM 4.42 10e9/L 07/28/2013 CBC 1456713 ABS LYMPH 1.61 10e9/L 07/28/2013 CBC 6580042 ABS MONO 0.60 10e9/L 07/28/2013 CBC 9486871 ABS EOS 0.49 10e9/L 07/28/2013 CBC 4161303 ABS BASO 0.07 10e9/L 07/28/2013 CBC 6325674 RDW-SD 47.2 fL 07/28/2013 GFR CALC 7615422 GFR AA >60 ML/MIN 07/28/2013 GFR CALC 4322688 GFR NON-AA >60 ML/MIN 07/28/2013 CHEM 14 8615844 AST 20 U/L 07/28/2013 CHEM 14 4044222 ALT 19 IU/L 07/28/2013 CHEM 14 4093523 BUN 13 MG/DL 07/28/2013 CHEM 14 3370220 ALBUMIN 4.1 GM/DL 07/28/2013 CHEM 14 3794655 CHLORIDE 102 MMOL/L 07/28/2013 CHEM 14 4981614 BILI TOT 0.7 MG/DL 07/28/2013 CHEM 14 3313636 ALK PHOS 62 U/L 07/28/2013 CHEM 14 4790484 SODIUM 139 MMOL/L 07/28/2013 CHEM 14 0879714 CREATININE 0.66 MG/DL 07/28/2013 CHEM 14 0536150 CALCIUM 9.3 MG/DL 07/28/2013 CHEM 14 1771286 POTASSIUM 4.4 MMOL/L 07/28/2013 CHEM 14 0003339 PROT TOT 6.2 GM/DL 07/28/2013 CHEM 14 5279763 GLUCOSE 160 MG/DL 07/28/2013 CHEM 14 4724111 BICARB 29 MMOL/L 07/28/2013 CHEM 14 4775824 ANION GAP 8 MEQ/L 07/28/2013 DIGOXIN 0403232 DIGOXIN 0.6 NG/ML 05/12/2013 GFR CALC 5984833 GFR AA >60 ML/MIN 04/29/2013 GFR CALC 6820869 GFR NON-AA >60 ML/MIN 04/29/2013 A1C 8637618 A1C HPLC 86349- 6 7.5 % 04/29/2013 TSH 2502062 TSH 1.161 uIU/ML 04/29/2013 CHEM 14 0659017 AST 14 U/L 04/29/2013 CHEM 14 3597253 ALT 14 IU/L 04/29/2013 CHEM 14 1135189 BUN 13 MG/DL 04/29/2013 CHEM 14 4379195 ALBUMIN 4.1 GM/DL 04/29/2013 CHEM 14 0635453 CHLORIDE 102 MMOL/L 04/29/2013 CHEM 14 5089110 BILI TOT 0.7 MG/DL 04/29/2013 CHEM 14 8707037 ALK PHOS 75 U/L 04/29/2013 CHEM 14 8309916 SODIUM 139 MMOL/L 04/29/2013 CHEM 14 6190199 CREATININE 0.62 MG/DL 04/29/2013 CHEM 14 5617566 CALCIUM 9.3 MG/DL 04/29/2013 CHEM 14 4523314 POTASSIUM 4.0 MMOL/L 04/29/2013 CHEM 14 1621915 PROT TOT 6.5 GM/DL 04/29/2013 CHEM 14 7626258 GLUCOSE 152 MG/DL 04/29/2013 CHEM 14 2850481 BICARB 31 MMOL/L 04/29/2013 CHEM 14 5555149 ANION GAP 6 MEQ/L 04/29/2013 CBC 3036867 WBC 7.4 10e9/L 04/29/2013 CBC 9768380 RBC 4.70 10e12/L 04/29/2013 CBC 0655899 HGB 12.8 g/dL 04/29/2013 CBC 3546275 HCT DET 40.1 % 04/29/2013 CBC 4682892 MCV 85.3 fL 04/29/2013 CBC 5598129 MCH 27.2 pg 04/29/2013 CBC 0818507 MCHC 31.9 g/dL 04/29/2013 CBC 7945914 PLT 312 10e9/L 04/29/2013 CBC 7425879 MPV 10.4 fL 04/29/2013 CBC 4283925 TIM % 64.9 % 04/29/2013 CBC 5521485 LY % 20.0 % 04/29/2013 CBC 3462254 MON % 8.6 % 04/29/2013 CBC 1275237 EOS % 5.3 % 04/29/2013 CBC 0418093 BASO % 1.2 % 04/29/2013 CBC 3069003 RDW 15.4 % 04/29/2013 CBC 3683281 ABS TIM 4.80 10e9/L 04/29/2013 CBC 1533883 ABS LYMPH 1.48 10e9/L 04/29/2013 CBC 2571660 ABS MONO 0.64 10e9/L 04/29/2013 CBC 2710067 ABS EOS 0.39 10e9/L 04/29/2013 CBC 6321534 ABS BASO 0.09 10e9/L 04/29/2013 CBC 6858331 RDW-SD 47.3 fL 04/29/2013 LIPID GRP HDL TEST 43 MG/DL 04/29/2013 LIPID GRP TRIG 111 MG/DL 04/29/2013 LIPID GRP TEST LDL 65 MG/DL 04/29/2013 LIPID GRP CHOL 130 MG/DL 04/29/2013 LIPID GRP RCHOL/HDL 3.02 RATIO 04/29/2013 TSH 8997201 TSH 1.406 uIU/ML 12/28/2012 A1C 4356239 A1C HPLC 41006- 6 7.2 % 12/28/2012 LIPID GRP HDL TEST 54 MG/DL 12/27/2012 LIPID GRP TRIG 94 MG/DL 12/27/2012 LIPID GRP TEST LDL 42 MG/DL 12/27/2012 LIPID GRP CHOL 115 MG/DL 12/27/2012 LIPID GRP RCHOL/HDL 2.13 RATIO 12/27/2012 GFR CALC 1968822 GFR AA >60 ML/MIN 12/27/2012 GFR CALC 0147261 GFR NON-AA >60 ML/MIN 12/27/2012 CHEM 14 5323643 AST 14 U/L 12/27/2012 CHEM 14 8015478 ALT 13 IU/L 12/27/2012 CHEM 14 6416955 BUN 13 MG/DL 12/27/2012 CHEM 14 9118338 ALBUMIN 4.5 GM/DL 12/27/2012 CHEM 14 4773883 CHLORIDE 105 MMOL/L 12/27/2012 CHEM 14 4885375 BILI TOT 0.8 MG/DL 12/27/2012 CHEM 14 7659361 ALK PHOS 69 U/L 12/27/2012 CHEM 14 2814918 SODIUM 142 MMOL/L 12/27/2012 CHEM 14 4409685 CREATININE 0.73 MG/DL 12/27/2012 CHEM 14 9883176 CALCIUM 9.7 MG/DL 12/27/2012 CHEM 14 1476317 POTASSIUM 4.1 MMOL/L 12/27/2012 CHEM 14 9755015 PROT TOT 6.8 GM/DL 12/27/2012 CHEM 14 6964784 GLUCOSE 133 MG/DL 12/27/2012 CHEM 14 5104256 BICARB 30 MMOL/L 12/27/2012 CHEM 14 0963090 ANION GAP 7 MEQ/L 12/27/2012 CBC 1680501 WBC 6.8 10e9/L 12/27/2012 CBC 7189113 RBC 4.72 10e12/L 12/27/2012 CBC 7265275 HGB 12.5 g/dL 12/27/2012 CBC 4695452 HCT DET 39.6 % 12/27/2012 CBC 8460748 MCV 83.9 fL 12/27/2012 CBC 4079837 MCH 26.5 pg 12/27/2012 CBC 6754267 MCHC 31.6 g/dL 12/27/2012 CBC 7864941 PLT 336 10e9/L 12/27/2012 CBC 5522157 MPV 10.4 fL 12/27/2012 CBC 0252111 TIM % 60.7 % 12/27/2012 CBC 4862357 LY % 24.6 % 12/27/2012 CBC 1478225 MON % 8.4 % 12/27/2012 CBC 6642221 EOS % 5.3 % 12/27/2012 CBC 0458818 BASO % 1.0 % 12/27/2012 CBC 0978522 RDW 16.6 % 12/27/2012 CBC 1543454 ABS TIM 4.13 10e9/L 12/27/2012 CBC 3663396 ABS LYMPH 1.67 10e9/L 12/27/2012 CBC 9295692 ABS MONO 0.57 10e9/L 12/27/2012 CBC 3128685 ABS EOS 0.36 10e9/L 12/27/2012 CBC 5292216 ABS BASO 0.07 10e9/L 12/27/2012 CBC 8874838 RDW-SD 50.1 fL 12/27/2012 GFR CALC 6951974 GFR AA >60 ML/MIN 08/27/2012 GFR CALC 4640830 GFR NON-AA >60 ML/MIN 08/27/2012 CHEM 14 4324824 AST 15 U/L 08/27/2012 CHEM 14 1440324 ALT 17 IU/L 08/27/2012 CHEM 14 1677643 BUN 14 MG/DL 08/27/2012 CHEM 14 6311926 ALBUMIN 4.2 GM/DL 08/27/2012 CHEM 14 6454446 CHLORIDE 103 MMOL/L 08/27/2012 CHEM 14 7640930 BILI TOT 0.6 MG/DL 08/27/2012 CHEM 14 3192641 ALK PHOS 86 U/L 08/27/2012 CHEM 14 7292191 SODIUM 141 MMOL/L 08/27/2012 CHEM 14 3219734 CREATININE 0.64 MG/DL 08/27/2012 CHEM 14 7283967 CALCIUM 9.5 MG/DL 08/27/2012 CHEM 14 0759228 POTASSIUM 4.1 MMOL/L 08/27/2012 CHEM 14 8907327 PROT TOT 6.1 GM/DL 08/27/2012 CHEM 14 2076539 GLUCOSE 151 MG/DL 08/27/2012 CHEM 14 8193527 BICARB 30 MMOL/L 08/27/2012 CHEM 14 3181518 ANION GAP 8 MEQ/L 08/27/2012 FREE T4 1221628 FREE T4 1.36 NG/DL 08/27/2012 CBC 7025653 WBC 7.8 10e9/L 08/27/2012 CBC 6652025 RBC 4.54 10e12/L 08/27/2012 CBC 3345701 HGB 12.0 g/dL 08/27/2012 CBC 9097981 HCT DET 37.9 % 08/27/2012 CBC 6882690 MCV 83.5 fL 08/27/2012 CBC 3250171 MCH 26.4 pg 08/27/2012 CBC 0668359 MCHC 31.7 g/dL 08/27/2012 CBC 5001270 PLT 370 10e9/L 08/27/2012 CBC 7224298 MPV 10.7 fL 08/27/2012 CBC 4283840 TIM % 65.7 % 08/27/2012 CBC 6606951 LY % 19.5 % 08/27/2012 CBC 8707037 MON % 9.0 % 08/27/2012 CBC 4640530 EOS % 5.0 % 08/27/2012 CBC 5743711 BASO % 0.8 % 08/27/2012 CBC 7537088 RDW 15.4 % 08/27/2012 CBC 0904240 ABS TIM 5.12 10e9/L 08/27/2012 CBC 0633651 ABS LYMPH 1.52 10e9/L 08/27/2012 CBC 8960465 ABS MONO 0.70 10e9/L 08/27/2012 CBC 6655452 ABS EOS 0.39 10e9/L 08/27/2012 CBC 0803248 ABS BASO 0.06 10e9/L 08/27/2012 CBC 4662543 RDW-SD 46.3 fL 08/27/2012 A1C HPLC 6980216 A1C HPLC 72181-3 7.3 % 08/27/2012 LIPID GRP HDL TEST 41 MG/DL 08/27/2012 LIPID GRP TRIG 120 MG/DL 08/27/2012 LIPID GRP TEST LDL 67 MG/DL 08/27/2012 LIPID GRP CHOL 132 MG/DL 08/27/2012 LIPID GRP RCHOL/HDL 3.22 RATIO 08/27/2012 TSH 6460131 TSH 0.933 uIU/ML 08/27/2012 DIGOXIN 1996178 DIGOXIN 1.4 NG/ML 07/15/2012 CBC 7776324 WBC 6.3 10e9/L 07/15/2012 CBC 8784015 RBC 4.44 10e12/L 07/15/2012 CBC 2167327 HGB 11.8 g/dL 07/15/2012 CBC 7692882 HCT DET 36.9 % 07/15/2012 CBC 2161837 MCV 83.1 fL 07/15/2012 CBC 6012309 MCH 26.6 pg 07/15/2012 CBC 8547773 MCHC 32.0 g/dL 07/15/2012 CBC 9816625 PLT 316 10e9/L 07/15/2012 CBC 5427656 MPV 10.3 fL 07/15/2012 CBC 1746043 TIM % 64.4 % 07/15/2012 CBC 9610381 LY % 19.6 % 07/15/2012 CBC 3579762 MON % 9.1 % 07/15/2012 CBC 4425241 EOS % 6.1 % 07/15/2012 CBC 4021983 BASO % 0.8 % 07/15/2012 CBC 4713295 RDW 15.3 % 07/15/2012 CBC 1834225 ABS TMI 4.06 10e9/L 07/15/2012 CBC 2498547 ABS LYMPH 1.23 10e9/L 07/15/2012 CBC 0275155 ABS MONO 0.57 10e9/L 07/15/2012 CBC 5144426 ABS EOS 0.38 10e9/L 07/15/2012 CBC 5996975 ABS BASO 0.05 10e9/L 07/15/2012 CBC 5087281 RDW-SD 46.2 fL 07/15/2012 DIGOXIN 5921782 DIGOXIN 1.4 NG/ML 07/04/2012 BMP 5117087 GLUCOSE 137 MG/DL 07/04/2012 BMP 7726708 CREATININE 0.86 MG/DL 07/04/2012 BMP 2597103 BUN 14 MG/DL 07/04/2012 BMP 1715293 SODIUM 140 MMOL/L 07/04/2012 BMP POTASSIUM 4.5 MMOL/L 07/04/2012 BMP CHLORIDE 103 MMOL/L 07/04/2012 BMP 5638654 BICARB 28 MMOL/L 07/04/2012 BMP 4058854 ANION GAP 9 MEQ/L 07/04/2012 BMP 2660032 CALCIUM 9.7 MG/DL 07/04/2012 CBC 0733839 WBC 6.9 10e9/L 07/04/2012 CBC 3567232 RBC 4.56 10e12/L 07/04/2012 CBC 1404593 HGB 12.2 g/dL 07/04/2012 CBC 6939193 HCT DET 38.1 % 07/04/2012 CBC 7899436 MCV 83.6 fL 07/04/2012 CBC 1925945 MCH 26.8 pg 07/04/2012 CBC 0133712 MCHC 32.0 g/dL 07/04/2012 CBC 3164159 PLT 382 10e9/L 07/04/2012 CBC 7045634 MPV 10.6 fL 07/04/2012 CBC 5777007 TIM % 58.7 % 07/04/2012 CBC 8706415 LY % 23.7 % 07/04/2012 CBC 7991555 MON % 10.2 % 07/04/2012 CBC 3269166 EOS % 6.4 % 07/04/2012 CBC 1751148 BASO % 1.0 % 07/04/2012 CBC 5307035 RDW 15.8 % 07/04/2012 CBC 9755944 ABS TIM 4.05 10e9/L 07/04/2012 CBC 6043034 ABS LYMPH 1.64 10e9/L 07/04/2012 CBC 7127190 ABS MONO 0.70 10e9/L 07/04/2012 CBC 1696919 ABS EOS 0.44 10e9/L 07/04/2012 CBC 4596260 ABS BASO 0.07 10e9/L 07/04/2012 CBC 2180603 RDW-SD 47.5 fL 07/04/2012 GFR CALC 5271832 GFR AA >60 ML/MIN 07/04/2012 GFR CALC 4551196 GFR NON-AA >60 ML/MIN 07/04/2012 A1C HPLC 6009896 A1C HPLC 07091-9 7.1 % 03/27/2012 GFR CALC 3880023 GFR AA >60 ML/MIN 03/26/2012 GFR CALC 9008950 GFR NON-AA >60 ML/MIN 03/26/2012 LIPID GRP HDL TEST 40 MG/DL 03/26/2012 LIPID GRP TRIG 93 MG/DL 03/26/2012 LIPID GRP TEST LDL 62 MG/DL 03/26/2012 LIPID GRP CHOL 121 MG/DL 03/26/2012 LIPID GRP RCHOL/HDL 3.03 RATIO 03/26/2012 TSH 3701943 TSH 0.842 uIU/ML 03/26/2012 FREE T4 3660742 FREE T4 1.30 NG/DL 03/26/2012 CBC 0028885 WBC 5.3 10e9/L 03/26/2012 CBC 9517241 RBC 4.70 10e12/L 03/26/2012 CBC 7089090 HGB 12.1 g/dL 03/26/2012 CBC 2366122 HCT DET 38.1 % 03/26/2012 CBC 5125716 MCV 81.1 fL 03/26/2012 CBC 4929772 MCH 25.7 pg 03/26/2012 CBC [id number] MCHC 31.8 g/dL 03/26/2012 CBC 2060540 PLT 315 10e9/L 03/26/2012 CBC 3545161 MPV 10.9 fL 03/26/2012 CBC 8312350 TIM % 54.8 % 03/26/2012 CBC 1859644 LY % 25.8 % 03/26/2012 CBC 5955690 MON % 11.6 % 03/26/2012 CBC 4995578 EOS % 7.0 % 03/26/2012 CBC 3088805 BASO % 0.8 % 03/26/2012 CBC 9964437 RDW 16.7 % 03/26/2012 CBC 8298512 ABS TIM 2.90 10e9/L 03/26/2012 CBC 4372436 ABS LYMPH 1.37 10e9/L 03/26/2012 CBC 9116241 ABS MONO 0.61 10e9/L 03/26/2012 CBC 1910978 ABS EOS 0.37 10e9/L 03/26/2012 CBC 8662027 ABS BASO 0.04 10e9/L 03/26/2012 CBC 0611716 RDW-SD 48.8 fL 03/26/2012 CHEM 14 0502946 AST 18 U/L 03/26/2012 CHEM 14 6007503 ALT 17 IU/L 03/26/2012 CHEM 14 7864035 BUN 16 MG/DL 03/26/2012 CHEM 14 4417954 ALBUMIN 4.3 GM/DL 03/26/2012 CHEM 14 0324771 CHLORIDE 103 MMOL/L 03/26/2012 CHEM 14 9013235 BILI TOT 0.9 MG/DL 03/26/2012 CHEM 14 2409678 ALK PHOS 79 U/L 03/26/2012 CHEM 14 9587159 SODIUM 140 MMOL/L 03/26/2012 CHEM 14 7882876 CREATININE 0.70 MG/DL 03/26/2012 CHEM 14 3913774 CALCIUM 9.6 MG/DL 03/26/2012 CHEM 14 8892528 POTASSIUM 4.1 MMOL/L 03/26/2012 CHEM 14 1445278 PROT TOT 6.3 GM/DL 03/26/2012 CHEM 14 6673164 GLUCOSE 142 MG/DL 03/26/2012 CHEM 14 7876558 BICARB 29 MMOL/L 03/26/2012 CHEM 14 6714274 ANION GAP 8 MEQ/L 03/26/2012 LIPID GRP HDL TEST 42 MG/DL 01/08/2012 LIPID GRP TRIG 105 MG/DL 01/08/2012 LIPID GRP TEST LDL 51 MG/DL 01/08/2012 LIPID GRP CHOL 114 MG/DL 01/08/2012 LIPID GRP RCHOL/HDL 2.71 RATIO 01/08/2012 CHEM 14 1964366 AST 24 U/L 01/08/2012 CHEM 14 6751297 ALT 28 IU/L 01/08/2012 CHEM 14 6859221 BUN 15 MG/DL 01/08/2012 CHEM 14 0161804 ALBUMIN 4.3 GM/DL 01/08/2012 CHEM 14 6003222 CHLORIDE 104 MMOL/L 01/08/2012 CHEM 14 7260947 BILI TOT 0.6 MG/DL 01/08/2012 CHEM 14 9130186 ALK PHOS 83 U/L 01/08/2012 CHEM 14 4445974 SODIUM 141 MMOL/L 01/08/2012 CHEM 14 8979092 CREATININE 0.64 MG/DL 01/08/2012 CHEM 14 5700074 CALCIUM 9.4 MG/DL 01/08/2012 CHEM 14 9782809 POTASSIUM 4.0 MMOL/L 01/08/2012 CHEM 14 5060469 PROT TOT 6.7 GM/DL 01/08/2012 CHEM 14 7267698 GLUCOSE 145 MG/DL 01/08/2012 CHEM 14 5671100 BICARB 28 MMOL/L 01/08/2012 CHEM 14 2316005 ANION GAP 9 MEQ/L 01/08/2012 CBC 7626161 WBC 5.8 10e9/L 01/08/2012 CBC 7428074 RBC 4.36 10e12/L 01/08/2012 CBC 9500027 HGB 11.6 g/dL 01/08/2012 CBC 4922312 HCT DET 37.4 % 01/08/2012 CBC 2365832 MCV 85.8 fL 01/08/2012 CBC 7295039 MCH 26.6 pg 01/08/2012 CBC 5673034 MCHC 31.0 g/dL 01/08/2012 CBC 3361496 PLT 319 10e9/L 01/08/2012 CBC 2113785 MPV 10.5 fL 01/08/2012 CBC 9359440 TIM % 62.2 % 01/08/2012 CBC 7550147 LY % 20.7 % 01/08/2012 CBC 9645668 MON % 9.3 % 01/08/2012 CBC 5190996 EOS % 6.4 % 01/08/2012 CBC 6570609 BASO % 1.4 % 01/08/2012 CBC 8225501 RDW 14.9 % 01/08/2012 CBC 4240322 ABS TIM 3.61 10e9/L 01/08/2012 CBC 5904867 ABS LYMPH 1.20 10e9/L 01/08/2012 CBC 3522964 ABS MONO 0.54 10e9/L 01/08/2012 CBC 6709583 ABS EOS 0.37 10e9/L 01/08/2012 CBC 9536670 ABS BASO 0.08 10e9/L 01/08/2012 CBC 9108990 RDW-SD 44.9 fL 01/08/2012 GFR CALC 5054786 GFR AA >60 ML/MIN 01/08/2012 GFR CALC 9659796 GFR NON-AA >60 ML/MIN 01/08/2012 A1C HPLC 8648812 A1C HPLC 01336-1 7.2 % 01/08/2012 Review of Systems System [...] accomodation 11/10/2013 None Full Exam - General 1995 Ears/Nose/Throat [...] 07/15/2012 None Full Exam - General 1995 Abdomen abdominal exam Overall: no tenderness 07/15/2012 [...] affect 03/28/2012 None Full Exam - General 1995 [...] sounds 10/11/2011 None Full Exam - General 1995 Cardiovascular extremities Overall: no clubbing 10/11/2011 None [...] Codes Date URINALYSIS NONAUTO W/O SCOPE CPT-4: 24510 12/31/2017 OCCULT BLOOD FECES CPT- 4: 70790 11/28/2017 TRIAMCINOLONE ACET INJ NOS CPT-4: J3301 10/30/2017 REMOVAL OF IMPACTED WAX CPT-4: G0268 05/29/2017 THER/PROPH/DIAG INJ SC/IM CPT-4: 59375 05/14/2017 KETOROLAC TROMETHAMINE INJ CPT-4: J1885 05/14/2017 ADMIN INFLUENZA VIRUS VAC CPT-4: G0008 04/30/2017 FLU VACC PRSV FREE INC ANTIG CPT-4: 25925 04/30/2017 THER/PROPH/DIAG INJ SC/IM CPT-4: 73773 03/06/2017 TRIAMCINOLONE ACET INJ NOS CPT-4: J3301 03/06/2017 THER/PROPH/DIAG INJ SC/IM CPT-4: 19454 09/04/2016 TRIAMCINOLONE ACET INJ NOS CPT-4: J3301 09/04/2016 THER/PROPH/DIAG INJ SC/IM CPT-4: 51546 11/11/2015 TRIAMCINOLONE ACET INJ NOS CPT-4: J3301 11/11/2015 TRIAMCINOLONE ACET INJ NOS CPT-4: J3301 10/25/2015 THER/PROPH/DIAG INJ SC/IM CPT-4: 79547 10/25/2015 THER/PROPH/DIAG INJ SC/IM CPT-4: 15273 08/17/2014 TRIAMCINOLONE ACET INJ NOS CPT-4: J3301 08/17/2014 TRIAMCINOLONE ACET INJ NOS CPT-4: J3301 04/13/2014 THER/PROPH/DIAG INJ SC/IM CPT-4: 57457 04/13/2014 ROUTINE VENIPUNCTURE CPT- 4: 37525 11/04/2013 ROUTINE VENIPUNCTURE CPT- 4: 27893 05/12/2013 ADMIN INFLUENZA VIRUS VAC CPT-4: G0008 05/12/2013 FLULAVAL VACC, 3 YRS & >, IM CPT-4: Q2036 05/12/2013 TRIAMCINOLONE ACET INJ NOS CPT-4: J3301 10/07/2012 THER/PROPH/DIAG INJ SC/IM CPT-4: 46539 10/07/2012 ROUTINE VENIPUNCTURE CPT- 4: 98401 08/27/2012 ROUTINE VENIPUNCTURE CPT- 4: 17844 07/15/2012 ROUTINE VENIPUNCTURE CPT- 4: 26152 03/26/2012 ADMIN INFLUENZA VIRUS VAC CPT-4: G0008 03/26/2012 FLULAVAL VACC, 3 YRS & >, IM CPT-4: Q2036 03/26/2012 Pneumococcal Polysaccharide Vaccine, 23-Valent, Ad CPT-4: 68605 03/26/2012 ROUTINE VENIPUNCTURE CPT- 4: 35001 01/08/2012 ROUTINE VENIPUNCTURE CPT- 4: 14991 11/06/2011 ROUTINE VENIPUNCTURE CPT- 4: 45202 10/25/2011 ROUTINE VENIPUNCTURE CPT- 4: 88818 10/16/2011 ROUTINE VENIPUNCTURE CPT- 4: 59488 09/25/2011 INJ TRIGGER POINT 1/2 MUSCL CPT-4: 42563 07/31/2011 TRIAMCINOLONE ACET INJ NOS CPT-4: J3301 07/31/2011 PRESCRIP TRANSMIT VIA ERX SY CPT-4: G8553 05/22/2011 ADMIN INFLUENZA VIRUS VAC CPT-4: G0008 05/02/2011 FLULAVAL VACC, 3 YRS & >, IM CPT-4: Q2036 05/02/2011 ROUTINE VENIPUNCTURE CPT- 4: 62125 05/02/2011 Vital Signs Date Vital 05/27/2018 Blood Pressure 1: 128/76 Code: 8480-6 BMI: 28.9 Code: 37857-0 Heart Rate 1: 74 bpm Height: 5'1" SpO2: 99% Weight: 153 lbs 01/21/2018 Blood Pressure 1: 132/78 Code: 8480-6 BMI: 28.7 Code: 92570-3 Heart Rate 1: 112 bpm Height: 5'1" SpO2: 98% Weight: 152 lbs 12/04/2017 Blood Pressure 1: 140/74 Code: 8480-6 BMI: 27.6 Code: 62348-2 Heart Rate 1: 76 bpm Height: 5'1" SpO2: 97% Weight: 146 lbs 11/13/2017 Blood Pressure 1: 166/78 Code: 8480-6 BMI: 27.4 Code: 82319-5 Heart Rate 1: 78 bpm Height: 5'1" SpO2: 98% Weight: 145 lbs 10/30/2017 Blood Pressure 1: 148/72 Code: 8480-6 BMI: 27.8 Code: 28922-8 Heart Rate 1: 92 bpm Height: 5'1" SpO2: 96% Weight: 147 lbs 09/20/2017 Blood Pressure 1: 146/68 Code: 8480-6 BMI: 28.2 Code: 71997-2 Heart Rate 1: 66 bpm Height: 5'1" SpO2: 99% Weight: 149 lbs 05/29/2017 Blood Pressure 1: 156/82 Code: 8480-6 BMI: 28.7 Code: 97146-6 Heart Rate 1: 71 bpm Height: 5'1" SpO2: 96% Weight: 152 lbs 05/14/2017 Blood Pressure 1: 150/88 Code: 8480-6 BMI: 28.5 Code: 81439-6 Heart Rate 1: 71 bpm Height: 5'1" SpO2: 98% Weight: 151 lbs 03/06/2017 Blood Pressure 1: 148/66 Code: 8480-6 BMI: 28.5 Code: 82663-1 Heart Rate 1: 78 bpm Height: 5'1" SpO2: 98% Weight: 151 lbs 11/01/2016 Blood Pressure 1: 150/84 Code: 8480-6 BMI: 29.1 Code: 61028-1 Heart Rate 1: 71 bpm Height: 5'1" SpO2: 97% Weight: 154 lbs 10/18/2016 Blood Pressure 1: 156/98 Code: 8480-6 Heart Rate 1: 68 bpm Height: 5'1" SpO2: 98% Weight: 10/12/2016 Blood Pressure 1: 142/76 Code: 8480-6 BMI: 30.0 Code: 99991-1 Heart Rate 1: 76 bpm Height: 5'1" SpO2: 95% Weight: 159 lbs 09/04/2016 Blood Pressure 1: 120/70 Code: 8480-6 Blood Pressure 1: 148/84 Code: 8480-6 BMI: 30.0 Code: 14572-1 Heart Rate 1: 72 bpm Height: 5'1" SpO2: 94% Weight: 159 lbs 05/30/2016 Blood Pressure 1: 152/84 Code: 8480-6 BMI: 29.9 Code: 01503-8 Heart Rate 1: 76 bpm Height: 5'1" SpO2: 97% Weight: 158 lbs 8 oz 05/01/2016 Blood Pressure 1: 146/60 Code: 8480-6 BMI: 29.9 Code: 42178-0 Heart Rate 1: 72 bpm Height: 5'1" SpO2: 97% Weight: 158 lbs 02/29/2016 Blood Pressure 1: 152/82 Code: 8480-6 BMI: 30.4 Code: 21101-3 Heart Rate 1: 71 bpm Height: 5'1" SpO2: 96% Weight: 161 lbs 02/03/2016 Blood Pressure 1: 148/88 Code: 8480-6 BMI: 30.6 Code: 89628-5 Heart Rate 1: 72 bpm Height: 5'1" SpO2: 98% Weight: 162 lbs 12/21/2015 Blood Pressure 1: 180/78 Code: 8480-6 BMI: 30.9 Code: 91511-2 Heart Rate 1: 64 bpm Height: 5'1" SpO2: 97% Weight: 163 lbs 8 oz 10/25/2015 Blood Pressure 1: 150/78 Code: 8480-6 BMI: 31.0 Code: 05351-3 Heart Rate 1: 73 bpm Height: 5'1" SpO2: 98% Weight: 164 lbs 10/19/2015 Blood Pressure 1: 122/72 Code: 8480-6 BMI: 31.6 Code: 71641-4 Heart Rate 1: 88 bpm Height: 5'1" SpO2: 98% Weight: 167 lbs 06/22/2015 Blood Pressure 1: 150/82 Code: 8480-6 BMI: 31.4 Code: 95959-9 Heart Rate 1: 86 bpm Height: 5'1" SpO2: 96% Weight: 166 lbs 12/22/2014 Blood Pressure 1: 160/92 Code: 8480-6 BMI: 31.2 Code: 36204-8 Heart Rate 1: 85 bpm Height: 5'1" SpO2: 97% Weight: 165 lbs 08/17/2014 Blood Pressure 1: 138/80 Code: 8480-6 BMI: 31.6 Code: 00747-3 Heart Rate 1: 77 bpm Height: 5'1" SpO2: 97% Weight: 167 lbs 04/13/2014 Blood Pressure 1: 144/88 Code: 8480-6 BMI: 31.6 Code: 92323-7 Heart Rate 1: 90 bpm Height: 5'1" Weight: 167 lbs 12/11/2013 Blood Pressure 1: 168/90 Code: 8480-6 BMI: 32.3 Code: 33482-2 Heart Rate 1: 72 bpm Height: 5'1" Weight: 171 lbs 11/10/2013 Blood Pressure 1: 150/80 Code: 8480-6 BMI: 32.3 Code: 78025-4 Heart Rate 1: 76 bpm Height: 5'1" Weight: 171 lbs 08/11/2013 Blood Pressure 1: 152/80 Code: 8480-6 BMI: 32.5 Code: 33490-9 Heart Rate 1: 92 bpm Height: 5'1" Temperature: 36.7 (C) / 98.0 (F) Weight: 172 lbs 05/12/2013 Blood Pressure 1: 142/102 Code: 8480-6 Blood Pressure 2: 144/98 Code: 8480-6 BMI: 34.2 Code: 63218-0 Heart Rate 1: 80 bpm Height: 5'1" Weight: 181 lbs 01/06/2013 Blood Pressure 1: 138/76 Code: 8480-6 BMI: 34.6 Code: 32854-5 Heart Rate 1: 64 bpm Height: 5'1" Weight: 183 lbs 10/07/2012 Blood Pressure 1: 146/76 Code: 8480-6 BMI: 35.6 Code: 94094-9 Heart Rate 1: 76 bpm Height: 5'1" Respiratory Rate: 20 bpm Weight: 188 lbs 8 oz 09/11/2012 Blood Pressure 1: 158/92 Code: 8480-6 BMI: 35.7 Code: 33413-4 Heart Rate 1: 76 bpm Height: 5'1" Weight: 189 lbs 07/15/2012 Blood Pressure 1: 158/100 Code: 8480-6 BMI: 36.3 Code: 22277-7 Heart Rate 1: 72 bpm Height: 5'1" Respiratory Rate: 20 bpm Weight: 192 lbs 05/02/2012 Blood Pressure 1: 156/80 Code: 8480-6 BMI: 35.9 Code: 84536-6 Heart Rate 1: 72 bpm Height: 5'1" Weight: 190 lbs 03/28/2012 Blood Pressure 1: 133/88 Code: 8480-6 Heart Rate 1: 78 bpm Weight: 189 lbs 11/27/2011 Blood Pressure 1: 178/80 Code: 8480-6 BMI: 36.7 Code: 46856-6 Heart Rate 1: 72 bpm Height: 5'1" Respiratory Rate: 20 bpm Weight: 194 lbs 10/25/2011 Blood Pressure 1: 122/62 Code: 8480-6 BMI: 37.0 Code: 83220-2 Heart Rate 1: 80 bpm Height: 5'1" [...] 2: / Code: 8480-6 BMI: 37.1 Code: 56822-2 Heart Rate 1: 72 bpm Height: 5'1" Respiratory Rate: 16 bpm SpO2: % Temperature: .0 (C) / 32.0 (F) Weight: 196 lbs 8 oz 05/22/2011 Blood Pressure 1: 147/71 Code: 8480-6 BMI: 18.7 Code: 25482-5 Heart Rate 1: 77 bpm Height: 7'1" Weight: 192 lbs 05/05/2011 Blood Pressure 1: 178/88 Code: 8480-6 BMI: 37.4 Code: 06335-1 Heart Rate 1: 80 bpm Height: 5' [...] Present Encounters Encounter Performer Location Codes Date ([id number]) 02321 EST. PATIENT, LEVEL IV Diagnosis: Type 2 diabetes mellitus with hyperglycemia[ICD10: E11.65] Diagnosis: Atrophy of thyroid (acquired)[ICD10: E03.4] Clarice Elaine MD, [facility] CPT-4: 99346 05/27/2018 ([id number]) 37681 EST. PATIENT, LEVEL IV Diagnosis: Type 2 diabetes mellitus without complications[ICD10: E11.9] Diagnosis: Paroxysmal atrial fibrillation[ICD10: I48.0] Diagnosis: Essential (primary) hypertension[ICD10: I10] Clarice Elaine MD, [facility] CPT-4: 26438 01/21/2018 ([id number]) 36514 EST. PATIENT, LEVEL III Diagnosis: Paroxysmal atrial fibrillation[ICD10: I48.0] Diagnosis: Other specified anemias[ICD10: D64.89] Clarice Elaine MD, [facility] CPT-4: 76019 12/04/2017 ([id number]) 66535 EST. PATIENT, LEVEL IV Diagnosis: Benign paroxysmal vertigo, bilateral[ICD10: H81.13] Diagnosis: Essential (primary) hypertension[ICD10: I10] Diagnosis: Other fatigue[ICD10: R53.83] Diagnosis: Other specified anemias[ICD10: D64.89] Diagnosis: Other allergic rhinitis[ICD10: J30.89] Socorro Elaine MD, [facility] CPT-4: 46063 11/13/2017 ([id number]) 47711 EST. PATIENT, LEVEL III Diagnosis: Mild intermittent asthma with (acute) exacerbation[ICD10: J45.21] Diagnosis: Cough[ICD10: R05] Socorro Elaine MD [facility] CPT-4: 17200 10/30/2017 ([id number]) 99213 EST. PATIENT, LEVEL IV Diagnosis: Gastro-esophageal reflux disease without esophagitis[ICD10: K21.9] Diagnosis: Type 2 diabetes mellitus without complications[ICD10: E11.9] Diagnosis: Other specified anemias[ICD10: D64.89] Diagnosis: Paroxysmal atrial fibrillation[ICD10: I48.0] Socorro Elaine MD [facility] CPT-4: 17858 09/20/2017 ([id number]) 28502 EST. PATIENT, LEVEL III Diagnosis: Essential (primary) hypertension[ICD10: I10] Clarice Elaine MD [facility] CPT-4: 28077 05/29/2017 ([id number]) 83488 EST. PATIENT, LEVEL III Diagnosis: Acute bronchitis due to other specified organisms[ICD10: J20.8] Diagnosis: Cough[ICD10: R05] Diagnosis: Other chest pain[ICD10: R07.89] Clarice Elaine MD [facility] CPT-4: 77880 05/14/2017 ([id number]) 40161 EST. PATIENT, LEVEL IV Diagnosis: Type 2 diabetes mellitus with hyperglycemia[ICD10: E11.65] Diagnosis: Essential (primary) hypertension[ICD10: I10] Diagnosis: Mild intermittent asthma with (acute) exacerbation[ICD10: J45.21] Clarice Ealine MD [facility] CPT-4: 59404 03/06/2017 ([id number]) 00047 EST. 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 PATIENT, LEVEL III Diagnosis: Mild intermittent asthma with (acute) exacerbation[ICD10: J45.21] Diagnosis: Gastro-esophageal reflux disease without esophagitis[ICD10: K21.9] Jayne Elaine MD, [facility] CPT-4: 11698 10/12/2016 ([id number]) 00006 EST. PATIENT, LEVEL IV Diagnosis: Type 2 diabetes mellitus with hyperglycemia[ICD10: E11.65] Diagnosis: Essential (primary) hypertension[ICD10: I10] Diagnosis: Mild intermittent asthma with (acute) exacerbation[ICD10: J45.21] Clarice Elaine MD, [facility] CPT-4: 88862 09/04/2016 16747 EST. PATIENT, LEVEL III Diagnosis: Pain in left ankle and joints of left foot[ICD10: M25.572] Diagnosis: Localized edema[ICD10: R60.0] Jayne Elaine MD, [facility] CPT-4: 02115 05/30/2016 ([id number]) 55921 EST. PATIENT, LEVEL III Diagnosis: Type 2 diabetes mellitus with hyperglycemia[ICD10: E11.65] Clarice Elaine MD, [facility] CPT-4: 51208 05/01/2016 ([id number]) 19454 EST. PATIENT, LEVEL IV Diagnosis: Type 2 diabetes mellitus without complications[ICD10: E11.9] Diagnosis: Moderate persistent asthma, uncomplicated[ICD10: J45.40] Diagnosis: Paroxysmal atrial fibrillation[ICD10: I48.0] Clarice Elaine MD, [facility] CPT-4: 94567 02/29/2016 ([id number]) 42864 EST. PATIENT, LEVEL IV Diagnosis: Paroxysmal atrial fibrillation[ICD10: I48.0] Diagnosis: Hypothyroidism, unspecified[ICD10: E03.9] Diagnosis: Type 2 diabetes mellitus without complications[ICD10: E11.9] Diagnosis: Essential (primary) hypertension[ICD10: I10] Diagnosis: Acute maxillary sinusitis, unspecified[ICD10: J01.00] Diagnosis: Moderate persistent asthma, uncomplicated[ICD10: J45.40] Clarice Elaine MD [facility] CPT-4: 58075 02/03/2016 ([id number]) 74185 EST. PATIENT, LEVEL IV Diagnosis: Type 2 diabetes mellitus without complications[ICD10: E11.9] Diagnosis: Hypothyroidism, unspecified[ICD10: E03.9] Diagnosis: Moderate persistent asthma, uncomplicated[ICD10: J45.40] Diagnosis: Essential (primary) hypertension[ICD10: I10] Clarice Elaine MD [facility] CPT-4: 63353 12/21/2015 ([id number]) 02924 EST. 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 PATIENT, LEVEL IV Diagnosis: Type 2 diabetes mellitus without complications[ICD10: E11.9] Diagnosis: Essential (primary) hypertension[ICD10: I10] Diagnosis: Hypothyroidism, unspecified[ICD10: E03.9] Clarice Elaine MD [facility] CPT-4: 73422 06/22/2015 ([id number]) 87205 EST. PATIENT, LEVEL IV Diagnosis: ESSENTIAL HYPERTENSION[ICD9: 401.9] Diagnosis: DIABETES TYPE II[ICD9: 250.00] Clarice Elaine MD [facility] CPT-4: 71827 12/22/2014 ([id number]) 02634 EST. PATIENT, LEVEL IV Diagnosis: ACUTE BRONCHITIS[ICD9: 466.0] Diagnosis: Acute asthma exacerbation[ICD9: 493.92] Diagnosis: ESSENTIAL HYPERTENSION[ICD9: 401.9] Diagnosis: DIABETES TYPE II[ICD9: 250.00] Clarice Elaine MD [facility] CPT-4: 97948 08/17/2014 ([id number]) 90438 EST. PATIENT, LEVEL IV Diagnosis: DIABETES TYPE II[ICD9: 250.00] Diagnosis: ESSENTIAL HYPERTENSION[ICD9: 401.9] Diagnosis: Acute asthma exacerbation[ICD9: 493.92] Clarice Elaine MD [facility] CPT-4: 47962 04/13/2014 ([id number]) 31637 EST. PATIENT, LEVEL IV Diagnosis: DIABETES TYPE II[ICD9: 250.00] Diagnosis: ESSENTIAL HYPERTENSION[ICD9: 401.9] Diagnosis: HYPOTHYROIDISM[ICD9: 244.9] Clarice Elaine MD [facility] CPT-4: 67981 12/11/2013 ([id number]) 45459 EST. PATIENT, LEVEL IV Diagnosis: DM W/O COMPLICATION TYPE II, UNCONTROLLED[ICD9: 250.02] Diagnosis: ESSENTIAL HYPERTENSION[ICD9: 401.9] Clarice Elaine MD [facility] CPT- 4: 52456 11/10/2013 ([id number]) 80486 EST. PATIENT, LEVEL IV Diagnosis: DM W/O COMPLICATION TYPE II, UNCONTROLLED[SNOMED: 97169784] Diagnosis: ESSENTIAL HYPERTENSION[SNOMED: 37798962] Diagnosis: ACUTE BRONCHITIS[ICD9: 466.0] Clarice Elaine MD [facility] CPT-4: 26881 08/11/2013 ([id number]) 82828 EST. PATIENT, LEVEL IV Diagnosis: DM W/O COMPLICATION TYPE II, UNCONTROLLED[SNOMED: 86071007] Diagnosis: ATRIAL FIBRILLATION[ICD9: 427.31] Diagnosis: ESSENTIAL HYPERTENSION[SNOMED: 79286828] Clarice Elaine MD [facility] CPT-4: 98483 05/12/2013 ([id number]) 53853 EST. PATIENT, LEVEL IV Diagnosis: DM W/O COMPLICATION TYPE II, UNCONTROLLED[SNOMED: 68164002] Diagnosis: ESSENTIAL HYPERTENSION[SNOMED: 56058863] Clarice Elaine MD [facility] CPT-4: 85935 01/06/2013 ([id number]) 76202 EST. PATIENT, LEVEL IV Diagnosis: DIABETES TYPE II[SNOMED: 223305504] Diagnosis: ESSENTIAL HYPERTENSION[SNOMED: 22959257] Diagnosis: Acute asthma exacerbation[ICD9: 493.92] Diagnosis: Fatigue[ICD9: 780.79] Clarice Elaine MD [facility] CPT-4: 34281 10/07/2012 ([id number]) 09763 EST. PATIENT, LEVEL IV Diagnosis: DM W/O COMPLICATION TYPE II, UNCONTROLLED[SNOMED: 59781796] Diagnosis: Lump of breast, right[ICD9: 611.72] Diagnosis: Lump on neck[ICD9: 784.2] Clarice Elaine MD, [facility] CPT-4: 11733 09/11/2012 ([id number]) 04153 EST. PATIENT, LEVEL IV Diagnosis: ESSENTIAL HYPERTENSION[SNOMED: 94857553] Diagnosis: Atrial fibrillation[ICD9: 427.31] Diagnosis: Fatigue[ICD9: 780.79] Diagnosis: Encounter for monitoring digoxin therapy[ICD9: V58.83] Clarice Elaine MD [facility] CPT-4: 39649 07/15/2012 ([id number]) 48816 EST. PATIENT, LEVEL IV Diagnosis: DIABETES TYPE II[SNOMED: 579901734] Diagnosis: ESSENTIAL HYPERTENSION[SNOMED: 73170585] Clarice Elaine MD [facility] CPT-4: 52180 05/02/2012 ([id number]) 15149 EST. PATIENT, LEVEL IV Diagnosis: DM W/O COMPLICATION TYPE II, UNCONTROLLED[SNOMED: 93125361] Diagnosis: ESSENTIAL HYPERTENSION[SNOMED: 32046377] Diagnosis: HYPERLIPIDEMIA[ICD9: 272.4] Clarice Elaine MD [facility] CPT-4: 87833 03/28/2012 ([id number]) 51325 EST. PATIENT, LEVEL IV Diagnosis: DM W/O COMPLICATION TYPE II, UNCONTROLLED[SNOMED: 35188473] Diagnosis: ESSENTIAL HYPERTENSION[SNOMED: 45224639] Clarice Elaine MD [facility] CPT-4: 86872 11/27/2011 ([id number]) 93601 EST. PATIENT, LEVEL III Diagnosis: ESSENTIAL HYPERTENSION[SNOMED: 20066758] Diagnosis: ANEMIA[ICD9: 285.9] Diagnosis: Gastritis[ICD9: 535.50] Clarice Elaine MD, [facility] CPT-4: 52145 10/25/2011 ([id number]) 18454 EST. PATIENT, LEVEL III Diagnosis: Anemia associated with acute blood loss[ICD9: 285.1] Diagnosis: Gastritis, acute with hemorrhage[ICD9: 535.01] Clarice Elaine MD [facility] CPT-4: 48397 10/11/2011 ([id number]) 32120 EST. PATIENT, LEVEL IV Diagnosis: Hematochezia[ICD9: 578.1] Diagnosis: ENCNTR LONG-RX USE NEC[ICD9: V58.69] Diagnosis: Abdominal pain[ICD9: 789.00] Clarice Elaine MD [facility] CPT-4: 55963 10/04/2011 ([id number]) 27424 EST. PATIENT, LEVEL IV Diagnosis: DIABETES TYPE II[SNOMED: 117482524] Diagnosis: ESSENTIAL HYPERTENSION[SNOMED: 60836249] Diagnosis: Coronary artery disease[ICD9: 414.00] Clarice Elaine MD [facility] CPT-4: 88124 09/25/2011 ([id number]) 50459 EST. PATIENT, LEVEL IV Diagnosis: Muscle spasm[ICD9: 728.85] Diagnosis: Arthralgia[ICD9: 719.40] Diagnosis: ESSENTIAL HYPERTENSION[SNOMED: 48164304] Clarice Elaine MD [facility] CPT-4: 77725 07/31/2011 13545 EST. PATIENT, LEVEL III Diagnosis: ACUTE SINUSITIS[ICD9: 461.9] Diagnosis: Cervicalgia[ICD9: 723.1] Socorro Elaine MD [facility] CPT-4: 29083 05/22/2011 84536 EST. PATIENT, LEVEL IV Diagnosis: HYPERLIPIDEMIA[ICD9: 272.4] Diagnosis: HYPOTHYROIDISM[ICD9: 244.9] Diagnosis: DM W/O COMPLICATION TYPE II, UNCONTROLLED[SNOMED: 37339448] Clarice Elaine MD [facility] CPT-4: 76063 05/05/2011 Plan of Care Planned Activity Notes [...] control. 05/27/2018 Appointment: Clarice Elaine WPtel: [phone] [facility] (15 min) Moderate 05/27/2018 Patient Education: Patient [...] uncontrolled. 01/21/2018 [phone] ([facility]) Moderate 01/21/2018 Patient Education: [...] venofer IV. 12/04/2017 App[facility]ment: [phone] (15 min) Moderate 12/04/2017 Patient Education: [...] instructions/medication interventions. HTN- elevated today-monitor at home Wtwjdf-dmfafzg-srjyx labs Allergies-add flonase nasal spray 11/13/2017 Visit Plan: BPPV - Benign Paroxysmal Positional Vertigo - discussed diagnosis with the patient, offered the pt the appropriate additional information in hand-out. Pt instructed in home exercises to help alleviate and prevent future recurrent episodes of vertigo. Pt informed that if symptoms worsen, call the office for further instructions/medication interventions. HTN- elevated today-monitor at home Qmvarc-dfnofex-hxfat labs Allergies-add flonase nasal spray 11/13/2017 [phone] ([facility] min) Complex 11/13/2017 Patient [...] acute changes. 10/30/2017 Appointment: Socorro Salmeron WPtel: [phone] (30 min) Complex 10/30/2017 Patient Education: Patient Medication Summary Completed 10/30/2017 Appointment: Clarice Elaine WPtel: [facility] [place] (15 min) Moderate 09/25/2017 Visit Plan: GERD-continue [...] Hgb A1C 09/20/2017 Appointment: Socorro Salmeron WPtel: [phone] [place] (30 min) Complex 09/20/2017 Patient Education: Patient Medication Summary Completed 09/20/2017 Appointment: Clarice Elaine WPtel: [facility]5 [facility] [place] (15 min) Moderate 06/26/2017 Visit [...] process. 05/29/2017 Appointment: Clar[facility] Elaine [phone] ([facility] min) Moderate 05/29/2017 Patient Education: Patient Medication Summary Completed 05/29/2017 Patient Education: Hypertension Completed 05/29/2017 Visit Plan: Bronchitis - acute case of bronchitis identified. Pt has been given antibiotics, breathing treatments as appropriate, and pt has been instructed to call if symptoms are not improved, or if symptoms acutely worsen. Chest pain - chest wall - toradol shot [facility] [id number] november 2018 05/14/2017 Visit Plan: Bronchitis - acute case of bronchitis identified. Pt has been given antibiotics, breathing treatments as appropriate, and pt has been instructed to call if symptoms are not improved, or if symptoms acutely worsen. Chest pain - chest wall - toradol shot [facility] [id number] november 2018 05/14/2017 Appointment: Clarice Elaine [facility]Ptel[facility] (15 min) Moderate 05/14/2017 Patient Education: Patient [...] clinic today. 03/06/2017 Appointment: Clarice Elaine WPtel: [facility] (15 min) Moderate 03/06/2017 Patient Education: Patient Medication Summary Completed 03/06/2017 Patient Education: Hypertension Completed 03/06/2017 Appointment: Clarice Elaine WPtel: [facility] (15 min) Moderate 12/05/2016 Visit Plan: [...] current treatment. 11/01/2016 Appointment: Clarice Elaine WPtel: [facility] (15 min) Moderate 11/01/2016 Patient Education: [...] ACUTE ILLNESS. 10/18/2016 Appointment: Clarice Elaine WPtel: [facility] (15 min) Moderate 10/18/2016 Patient Education: [...] changes 10/12/2016 Appointment: Jayne Ragland WPtel: [phone] [facility] (30 min) Complex 10/12/2016 Patient Education: [...] at home. 09/04/2016 Appointment: Clarice Elaine WPtel: [facility] (15 min) Moderate 09/04/2016 Patient Education: Patient Medication Summary Completed 09/04/2016 Patient Education: Obesity Completed 09/04/2016 Patient Education: Hypertension Completed 09/04/2016 [facility]ment: [phone] [facility] - Annual Wellness Visit 06/08/2016 Visit Plan: [...] control. 05/01/2016 Appointment: Clarice Elaine WPtel: [address] (15 min) Moderate 05/01/2016 Patient Education: [...] changes 02/29/2016 Appointment: Clarice Elaine WPtel: 1015 [facility] Surgical Procedure 02/29/2016 Patient Education: Patient [...] pressure readings. 12/21/2015 Appointment: Clarice Elaine WPtel: [address] [place], [place] [address] (15 min) Moderate 12/21/2015 Patient Education: Patient [...] shot today 10/25/2015 Appointment: Clar[facility]el[facility] (15 min) Moderate 10/25/2015 Patient Education: [...] ACUTE ILLNESS. 10/19/2015 Appointment: [phone] [place] (30 min) Complex 10/19/2015 Patient Education: [...] at home. 08/17/2014 Appointment: Clarice Elaine WPtel: [facility] Follow up 08/17/2014 Patient Education: Patient Medication [...] albuterol. 04/13/2014 Appointment: Clarice Elaine WPtel[facility] Follow up 04/13/2014 Patient Education: Patient [...] control. 12/11/2013 Appointment: Clarice Elaine WPtel: [facility] [place] Follow up 12/11/2013 Patient Education: Patient Medication [...] concerns. 11/10/2013 Appointment: Clarice Elaine WPtel: [facility] Follow up 11/10/2013 Patient Education: Patient Medication Summary Completed 11/10/2013 Patient Education: Hypertension Completed 11/10/2013 Appointment: Clarice Elaine WPtel[facility] [place] Lab Draw 11/04/2013 Patient Education: [...] pharmacy. 08/11/2013 Appointment: Clarice Elaine WPtel: [facility] [facility] Follow up 08/11/2013 Patient Education: Patient Medication [...] the diet. Flu shot today 05/12/2013 Appointment: Rodrick Elainey WPtel: [phone] Follow up 05/12/2013 Patient Education: Patient [...] control. 01/06/2013 Appointment: Clarice Elaine WPtel: 1015 [facility] Follow up 01/06/2013 Patient Education: Patient Medication [...] shot today. 10/07/2012 Appointment: Clarice Elaine WPtel: [facility] Follow up 10/07/2012 Patient Education: Patient [...] ultrasound 09/11/2012 Appointment: Clarice Elaine WPtel: [facility] Follow up 09/11/2012 Patient Education: Patient [...] level. 07/15/2012 Appointment: Clarice Elaine [facility]Ptel: [facility] Follow up 07/15/2012 Patient Education: Patient [...] Plavix. 05/02/2012 Appointment: Clarice Elaine WPtel: [facility] Follow up 05/02/2012 Patient Education: Patient Medication [...] ASPIRIN COMPELTELY. 03/28/2012 Appointment: Clarice Elaine WPtel: [phone] Follow up 03/28/2012 Patient Education: Patient Medication [...] at home. 11/27/2011 Appointment: Clarice Elaine WPtel: [facility] Follow up 11/27/2011 Patient Education: Patient Medication Summary Completed 11/27/2011 Patient Education: High Blood Pressure: Essential Hypertension Completed 11/27/2011 Patient Education: Patient Medication Summary Completed 11/06/2011 Appointment: Clarice Elaine WPtel: [facility] Other 11/03/2011 Appointment: Clarice Elaine WPtel: [facility] Other 11/02/2011 Appointment: Clarice Elaine WPtel: [address] [place], [place] [address] [place] Lab Draw 10/31/2011 Visit Plan: Hypertension [...] times daily. 10/25/2011 Appointment: Clarice Elaine WPtel: [address] [place], [place] [id number] Follow up 10/25/2011 Patient Education: Patient Medication Summary Completed 10/25/2011 Patient Education: High Blood Pressure: Essential Hypertension Completed 10/25/2011 Appointment: Clarice Elaine WPtel: [address] [place], [place] [phone] Lab Draw 10/16/2011 Patient Education: Patient Medication [...] to 11.4 10/11/2011 Appointment: Clarice Elaine WPtel: [address] [place], [place] [id number] Other 10/11/2011 Patient Education: Patient Medication Summary Completed 10/11/2011 Appointment: Clarice Elaine WPtel: [address] [place], [place] [phone] Other 10/10/2011 Visit Plan: Abdominal pain and [...] remained stable. 10/04/2011 Appointment: Clarice Elaine WPtel: [facility] Follow up 10/04/2011 Patient Education: Patient Medication [...] not improve. 09/25/2011 Appointment: Clarice Elaine WPtel: [address] [place] [address] Other 09/25/2011 Patient Education: Patient Medication Summary [...] not improve. 07/31/2011 Appointment: Clarice Elaine WPtel: [address] [place] [address] Other 07/31/2011 Patient Education: Patient Medication Summary [...] on use. 05/22/2011 Appointment: Socorro Salmeron WPtel: [phone] [facility] Other 05/22/2011 Patient Education: Patient Medication [...] dose increased. 05/05/2011 Appointment: Clarice Elaine WPtel: [facility] Other 05/05/2011 Patient Education: Patient Medication Summary Completed 05/05/2011 Patient Education: High Cholesterol Completed 05/05/2011 Appointment: Clarice Elaine WPtel: [address] [place], [place] [phone] [place] Other 05/04/2011 Appointment: Clarice Elaine WPtel: [facility] Lab Draw 05/02/2011 Patient Education: Patient [...] further instructions/medication interventions. HTN-elevated today-monitor at home Mwsqbk-codowms-wsspr labs Allergies-add flonase nasal spray CHECK LABS [...] further instructions/medication interventions. HTN-elevated today-monitor at home Cnfiyk-kknatuj-razaf labs Allergies-add flonase nasal spray . Hypertension [...] - look at the organic section at [facility] or in [employer] at the peanut butter [...] - chest wall - toradol shot [facility] [id number] november 2018 . Bronchitis - acute case of bronchitis identified. Pt has been given antibiotics, breathing treatments as appropriate, and pt has been instructed to call if symptoms are not improved, or if symptoms acutely worsen. Chest pain - chest wall - toradol shot [facility] [id number] november 2018 . Asthma Exacerbation - Asthma [...]
--- OUTSIDE RECORDS SUMMARY | 2018-12-28 04:48 | XMS REPORT | CCD ---
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 Unknown Has never used illegal drugs 05/05/2011 Allergies, Adverse Reactions, Alerts Substance Reaction Codes Entered Date Inactivated Date Status noroxin RxNorm: 7517 05/05/2011 No Inactive Date Active trovan RxNorm: 291895 05/05/2011 No Inactive Date Active * NO KNOWN FOOD ALLERGIES Unknown 05/05/2011 No Inactive Date Active PREDNISONE RxNorm: 8640 05/05/2011 No Inactive Date Active cephalexin RxNorm: 2231 05/05/2011 No Inactive Date Active theophylline RxNorm: 10256 05/05/2011 No Inactive Date Active azithromycin Unknown 10/11/2011 No Inactive Date Active Levaquin RxNorm: 59598 10/11/2011 No Inactive Date Active MORPHINE SULFATE [...] 160 mcg-4.5 mcg/actuation HFA aerosol inhaler RxNorm: 7391908 1 INH 06/07/2018 No Stop Date Active glipizide 5 mg tablet RxNorm: 685301 1/2 Tablet(s) PO BID TAKE ONE-HALF TABLET BY MOUTH TWICE DAILY 05/27/2018 08/19/2019 Active Synthroid 75 mcg tablet RxNorm: 731423 1 Tablet(s) PO daily 05/15/2018 11/10/2018 Active Synthroid 75 mcg tablet RxNorm: 880335 1 Tablet(s) PO daily 05/15/2018 05/14/2018 Inactive Synthroid 88 mcg tablet RxNorm: 356446 TAKE 1 TABLET BY MOUTH ONCE DAILY 04/08/2018 05/14/2018 Inactive amiodarone 200 mg tablet RxNorm: 937561 1/2 Tablet(s) PO BID 01/21/2018 05/26/2018 Inactive Bactrim DS 800 mg-160 mg tablet RxNorm: 905831 1 Tablet(s) PO BID 01/03/2018 01/02/2018 Inactive take probiotic bid x 7 days Bactrim DS 800 mg-160 mg tablet RxNorm: 236583 1 Tablet(s) PO BID 01/03/2018 01/09/2018 Inactive take probiotic bid x 7 days nitrofurantoin 100 mg capsule RxNorm: 990504 1 Capsule(s) PO BID 12/31/2017 01/06/2018 Inactive nitrofurantoin 100 mg capsule RxNorm: 878748 1 Capsule(s) PO BID 12/31/2017 12/30/2017 Inactive nitrofurantoin 100 mg capsule RxNorm: 950306 1 Capsule(s) PO BID 12/31/2017 12/30/2017 Inactive glipizide 5 mg tablet RxNorm: 069674 TAKE ONE-HALF TABLET BY MOUTH TWICE DAILY 11/23/2017 05/26/2018 Inactive meclizine 25 mg tablet RxNorm: 262171 1 Tablet(s) PO Q6 PRN 11/13/2017 No Stop Date Active Kenalog 40 mg/mL suspension for injection RxNorm: 3045028 1.5 Milliliter(s) Inj 10/30/2017 10/30/2017 Inactive Augmentin 875 mg-125 mg tablet RxNorm: 248706 1 Tablet(s) PO BID 10/30/2017 11/05/2017 Inactive Synthroid 88 mcg tablet RxNorm: 083845 TAKE ONE TABLET BY MOUTH ONCE DAILY 10/15/2017 04/07/2018 Inactive metformin 500 mg tablet RxNorm: 943635 TAKE ONE TABLET BY MOUTH WITH BREAKFAST AND ONE TABLET WITH LUNCH AND TWO TABLETS WITH SUPPER 10/15/2017 01/20/2018 Inactive albuterol sulfate 2.5 mg/3 mL (0.083 %) solution for nebulization RxNorm: 663374 USE ONE VIAL IN NEBULIZER 4 TIMES DAILY NEEDED FOR ASTHMA 08/16/2017 No Stop Date Active Plavix 75 mg tablet RxNorm: 537693 TAKE ONE TABLET BY MOUTH ONCE DAILY 06/25/2017 06/24/2017 Inactive Plavix 75 mg tablet RxNorm: 563866 1 Tablet(s) PO daily TAKE ONE TABLET BY MOUTH ONCE DAILY 06/25/2017 09/19/2017 Inactive acyclovir 800 mg tablet RxNorm: 092914 1 Tablet(s) PO QID 05/15/2017 05/14/2017 Inactive acyclovir 800 mg tablet RxNorm: 265640 1 Tablet(s) PO QID 05/15/2017 05/21/2017 Inactive tramadol 50 mg tablet RxNorm: 661797 1 Tablet(s) PO TID 05/15/2017 05/24/2017 Inactive ketorolac 60 mg/2 mL intramuscular solution RxNorm: 807893 2 Milliliter(s) IM 05/14/2017 05/14/2017 Inactive Augmentin 875 mg-125 mg tablet RxNorm: 786835 1 Tablet(s) PO BID 05/14/2017 05/23/2017 Inactive Synthroid 88 mcg tablet RxNorm: 744078 TAKE ONE TABLET BY MOUTH ONCE DAILY; NEED THYROID LABS DONE 04/16/2017 10/12/2017 Inactive Kenalog 40 mg/mL suspension for injection RxNorm: 3650182 Milliliter(s) Inj 03/06/2017 03/06/2017 Inactive metformin 500 mg tablet RxNorm: 627224 1 Tablet(s) UD 1 tab at breakfast, 1tab at lunch, 2 tab at supper 03/06/2017 09/01/2017 Inactive glipizide 5 mg tablet RxNorm: 613824 TAKE ONE-HALF TABLET BY MOUTH TWICE DAILY 02/23/2017 11/19/2017 Inactive Synthroid 88 mcg tablet RxNorm: 088415 Tablet(s) PO TAKE ONE TABLET BY MOUTH DAILY 01/17/2017 04/15/2017 Inactive Needs thyroid labs done Plavix 75 mg tablet RxNorm: 216530 TAKE ONE TABLET BY MOUTH ONCE DAILY 12/25/2016 06/22/2017 Inactive Kenalog 40 mg/mL suspension for injection RxNorm: 4978054 1.5 Milliliter(s) Inj 09/04/2016 09/04/2016 Inactive Janumet XR 100 mg-1,000 mg tablet,extended release RxNorm: 9569382 1 Tablet(s) PO daily 09/04/2016 03/02/2017 Inactive glipizide 5 mg tablet RxNorm: 971315 TAKE ONE-HALF TABLET BY MOUTH TWICE DAILY 08/24/2016 02/19/2017 Inactive Janumet XR 50 mg-1,000 mg tablet,extended release RxNorm: 8067443 TAKE ONE TABLET BY MOUTH ONCE DAILY 05/29/2016 09/03/2016 Inactive metoprolol tartrate 25 mg tablet RxNorm: 812797 1/4 Tablet(s) PO BID 05/01/2016 05/29/2016 Inactive glipizide 5 mg tablet RxNorm: 638504 TAKE ONE-HALF TABLET BY MOUTH TWICE DAILY 02/21/2016 08/18/2016 Inactive ProAir HFA 90 mcg/actuation aerosol inhaler RxNorm: 647361 2 Puff(s) INH PRN as needed ASTHMA 02/03/2016 03/03/2016 Inactive Accu-Chek Active Test strips RxNorm: 1 test Miscellaneous daily 02/03/2016 08/25/2019 Active DX250.00 albuterol sulfate 2.5 mg/3 mL (0.083 %) solution for nebulization RxNorm: 713806 1 Milliliter(s) INH QID as needed ASTHMA 02/03/2016 06/01/2016 Inactive Janumet XR 50 mg-1,000 mg tablet,extended release RxNorm: 9642817 1 Tablet(s) PO daily 02/03/2016 05/28/2016 Inactive Augmentin 875 mg-125 mg tablet RxNorm: 634362 1 Tablet(s) PO BID 02/03/2016 02/12/2016 Inactive sucralfate 1 gram tablet RxNorm: 366569 1 Tablet(s) PO QID - take 30 minutes before meals and before supper 12/21/2015 04/18/2016 Inactive metformin ER 500 mg tablet,extended release 24 hr RxNorm: 144306 1 Tablet(s) PO BID 12/21/2015 02/02/2016 Inactive digoxin 250 mcg tablet RxNorm: 411787 1 Tablet(s) PO daily 12/21/2015 01/20/2018 Inactive Synthroid 88 mcg tablet RxNorm: 123165 Tablet(s) PO TAKE ONE TABLET BY MOUTH DAILY 12/20/2015 01/16/2017 Inactive Plavix 75 mg tablet RxNorm: 227716 1 Tablet(s) PO daily 12/20/2015 12/13/2016 Inactive Kenalog 40 mg/mL suspension for injection RxNorm: 9911497 1 Milliliter(s) Inj 11/11/2015 11/11/2015 Inactive Kenalog 40 mg/mL suspension for injection RxNorm: 2695320 1 Milliliter(s) Inj 10/25/2015 10/25/2015 Inactive metformin 500 mg tablet RxNorm: 858032 2 Tablet(s) PO BID 07/16/2015 12/20/2015 Inactive metformin 500 mg tablet RxNorm: 969616 TAKE TWO TABLETS BY MOUTH TWICE DAILY 07/16/2015 12/20/2015 Inactive albuterol sulfate 2.5 mg/3 mL (0.083 %) solution for nebulization RxNorm: 211915 1 Milliliter(s) INH QID as needed ASTHMA 07/14/2015 11/10/2015 Inactive glipizide 5 mg tablet RxNorm: 205356 1/2 Tablet(s) PO BID 02/03/2015 01/28/2016 Inactive Symbicort 160 mcg-4.5 mcg/actuation HFA aerosol inhaler RxNorm: 0369380 1 INH 01/06/2015 06/06/2018 Inactive metformin 500 mg tablet RxNorm: 565537 2 Tablet(s) PO BID 12/22/2014 06/19/2015 Inactive Plavix 75 mg tablet RxNorm: 268158 1 Tablet(s) PO daily 12/02/2014 11/26/2015 Inactive note directions of one per day Synthroid 88 mcg tablet RxNorm: 988866 1 Tablet(s) PO daily TAKE ONE TABLET BY MOUTH DAILY 12/02/2014 04/07/2018 Inactive Accu-Chek Active Test strips RxNorm: 1 test Miscellaneous daily 08/17/2014 02/02/2016 Inactive DX250.00 Kenalog 40 mg/mL suspension for injection RxNorm: 2497174 Milliliter(s) Inj 08/17/2014 08/17/2014 Inactive doxycycline hyclate 100 mg tablet RxNorm: 012990 1 Tablet(s) PO BID 08/17/2014 08/26/2014 Inactive albuterol sulfate 2.5 mg/3 mL (0.083 %) solution for nebulization RxNorm: 313230 1 Milliliter(s) INH QID as needed ASTHMA 08/17/2014 08/16/2014 Inactive albuterol sulfate 2.5 mg/3 mL (0.083 %) solution for nebulization RxNorm: 842657 1 Milliliter(s) INH QID as needed ASTHMA 08/17/2014 12/14/2014 Inactive doxycycline hyclate 100 mg tablet RxNorm: 221634 1 Tablet(s) PO BID 08/17/2014 08/16/2014 Inactive Accu-Chek Multiclix Lancet RxNorm: 1 Miscellaneous daily TEST BLOOD SUGAR EVERY DAY 08/17/2014 09/10/2015 Inactive DX 250.00 metformin 500 mg tablet RxNorm: 220676 TAKE TWO TABLETS BY MOUTH TWICE DAILY 06/23/2014 09/20/2014 Inactive metformin 500 mg tablet RxNorm: 349052 2 Tablet(s) PO BID 06/22/2014 12/18/2014 Inactive Bactrim DS 800 mg-160 mg tablet RxNorm: 268161 1 Tablet(s) PO BID 05/11/2014 05/17/2014 Inactive Bactrim DS 800 mg-160 mg tablet RxNorm: 223567 1 Tablet(s) PO BID 05/11/2014 05/10/2014 Inactive Kenalog 40 mg/mL suspension for injection RxNorm: 9680716 Milliliter(s) Inj 04/13/2014 04/13/2014 Inactive Accu-Chek Active Test strips RxNorm: 1 TEST MISCELLANEOUS BID 04/06/2014 10/22/2014 Inactive glipizide 5 mg tablet RxNorm: 920881 1/2 Tablet(s) PO BID 03/03/2014 02/02/2015 Inactive Synthroid 88 mcg tablet RxNorm: 591534 1 Tablet(s) PO daily TAKE ONE TABLET BY MOUTH DAILY 12/11/2013 12/01/2014 Inactive Plavix 75 mg tablet RxNorm: 914349 1 Tablet(s) PO daily 12/11/2013 12/01/2014 Inactive note directions of one per day glipizide 5 mg tablet RxNorm: 212007 1/2 Tablet(s) PO BID 11/10/2013 03/02/2014 Inactive Lipitor 10 mg tablet RxNorm: 326762 1 Tablet(s) PO daily 11/10/2013 12/21/2014 Inactive Accu-Chek Active Test strips RxNorm: strip miscellaneous TEST BLOOD SUGAR EVERY DAY 11/03/2013 No Stop Date Active Accu-Chek Multiclix Lancet RxNorm: misc miscellaneous TEST BLOOD SUGAR EVERY DAY 08/07/2013 08/16/2014 Inactive Accu-Chek Active Test strips RxNorm: strip miscellaneous TEST BLOOD SUGAR EVERY DAY 08/05/2013 No Stop Date Active digoxin 125 mcg tablet RxNorm: 146576 1 Tablet(s) PO daily 08/05/2013 10/28/2014 Inactive metformin 500 mg tablet RxNorm: 379523 2 Tablet(s) PO BID 06/12/2013 06/21/2014 Inactive metformin 500 mg tablet RxNorm: 338239 2 Tablet(s) PO BID 05/12/2013 06/11/2013 Inactive metformin 500 mg tablet RxNorm: 830454 Tablet(s) PO TAKE ONE & ONE-HALF TABLETS BY MOUTH TWICE DAILY 04/10/2013 05/11/2013 Inactive Synthroid 88 mcg tablet RxNorm: 588402 Tablet(s) PO TAKE ONE TABLET BY MOUTH DAILY 01/07/2013 12/19/2015 Inactive Synthroid 88 mcg tablet RxNorm: 242123 1 Tablet(s) PO daily TAKE ONE TABLET BY MOUTH DAILY 01/06/2013 12/10/2013 Inactive Plavix 75 mg tablet RxNorm: 932828 1 Tablet(s) PO daily 12/09/2012 12/03/2013 Inactive note directions of one per day Lipitor 80 mg tablet RxNorm: 929286 Tablet(s) PO TAKE 1 TABLET BY MOUTH EVERY DAY 10/28/2012 11/09/2013 Inactive Synthroid 88 mcg tablet RxNorm: 710256 Tablet(s) PO TAKE ONE TABLET BY MOUTH DAILY 10/07/2012 10/06/2012 Inactive Synthroid 88 mcg tablet RxNorm: 547508 1 Tablet(s) PO daily TAKE ONE TABLET BY MOUTH DAILY 10/07/2012 01/05/2013 Inactive Kenalog 40 mg/mL Susp for Injection RxNorm: 4230998 1 Milliliter(s) IM 10/07/2012 10/07/2012 Inactive digoxin 250 mcg tablet RxNorm: 9749067 1/2 Tablet(s) PO daily 07/15/2012 08/04/2013 Inactive Synthroid 88 mcg tablet RxNorm: 046102 Tablet(s) PO TAKE ONE TABLET BY MOUTH DAILY 06/28/2012 10/06/2012 Inactive Accu-Chek Multiclix Lancet RxNorm: Misc Miscellaneous 06/05/2012 No Stop Date Active TEST BLOOD SUGAR EVERY DAY Accu-Chek Active Test Strips RxNorm: Strip Miscellaneous 06/05/2012 No Stop Date Active TEST BLOOD SUGAR EVERY DAY Lipitor 80 mg tablet RxNorm: 907701 1/2 Tablet(s) PO daily 03/28/2012 No Stop Date Active TAKE 1 TABLET BY MOUTH EVERY DAY metformin 500 mg tablet RxNorm: 086150 1.5 Tablet(s) PO BID 03/28/2012 04/09/2013 Inactive Lipitor 80 mg tablet RxNorm: 775841 1/2 Tablet(s) PO 03/28/2012 08/16/2014 Inactive TAKE 1 TABLET BY MOUTH EVERY DAY Lipitor 80 mg tablet RxNorm: 459355 1/2 Tablet(s) PO daily 03/28/2012 No Stop Date Active TAKE 1 TABLET BY MOUTH EVERY DAY Influenza Virus Vaccine 0.5 mL RxNorm: IM 03/26/2012 03/26/2012 Inactive Pneumovax 23 25 mcg/0.5 mL Injection RxNorm: 006543 Milliliter(s) Inj 03/26/2012 03/26/2012 Inactive metformin 500 mg tablet RxNorm: 816376 1 Tablet(s) PO BID 11/27/2011 03/27/2012 Inactive Plavix 75 mg tablet RxNorm: 983924 1 Tablet(s) PO daily 11/01/2011 11/24/2012 Inactive note directions of one per day Lipitor 80 mg tablet RxNorm: 947844 Tablet(s) PO 10/18/2011 03/27/2012 Inactive TAKE 1 TABLET BY MOUTH EVERY DAY Protonix 40 mg Tab RxNorm: 086243 1 Tablet(s) PO BID 10/11/2011 12/20/2015 Inactive Accu-Chek Active Test Strips RxNorm: 1 test Miscellaneous daily 10/04/2011 08/16/2014 Inactive Carafate 1 gram Tab RxNorm: 916134 1 Tablet(s) PO QID 10/02/2011 10/31/2011 Inactive Carafate 1 gram Tab RxNorm: 241713 1 Tablet(s) PO TID 09/29/2011 09/28/2011 Inactive Carafate 1 gram Tab RxNorm: 740733 1 Tablet(s) PO TID 09/29/2011 10/01/2011 Inactive Kenalog 40 mg/mL Susp for Injection RxNorm: 4928220 2 Milliliter(s) Inj 07/31/2011 07/31/2011 Inactive Synthroid 88 mcg tablet RxNorm: 509754 1 Tablet(s) PO daily 06/06/2011 10/11/2011 Inactive Accu-Chek Active Test Strips RxNorm: 1 test Miscellaneous BID 06/05/2011 10/03/2011 Inactive Accu-Chek Multiclix Lancet RxNorm: 1 test Miscellaneous BID 06/02/2011 09/24/2011 Inactive Accu-Chek Active Test strips RxNorm: 1 test Miscellaneous BID 06/02/2011 06/04/2011 Inactive Bactrim DS 800 mg-160 mg Tab RxNorm: 555607 1 Tablet(s) PO BID 05/22/2011 05/31/2011 Inactive metformin 500 mg Tab RxNorm: 388124 1 Tablet(s) PO TID 05/05/2011 10/31/2011 Inactive Influenza Virus Vaccine 0.5 mL RxNorm: IM 05/02/2011 05/02/2011 Inactive albuterol sulfate HFA 90 mcg/Actuation Aerosol Inhaler RxNorm: 315921 1 Puff(s) INH PRN prn shortness of breath No Start Date Active Xarelto 20 mg tablet RxNorm: 1452487 1 Tablet(s) PO daily No Start Date Active multivitamin chewable tablet RxNorm: 1 Tablet(s) PO daily No Start Date Active Fish Oil 300 mg-1,000 mg capsule RxNorm: 103647 1 Capsule(s) PO occasional No Start Date Active hyoscyamine 0.125 mg sublingual tablet RxNorm: 4776048 1 Tablet(s) SL Q6 No Start Date Active simvastatin 20 mg tablet RxNorm: 018258 1/2 Tablet(s) PO daily No Start Date 12/20/2015 Inactive Zantac 75 75 mg Tab RxNorm: 454044 2 Tablet(s) PO daily No Start Date 12/20/2015 Inactive Protonix 40 mg Tab RxNorm: 608660 1 Tablet(s) PO daily No Start Date 10/10/2011 Inactive Fish Oil 1,000 mg capsule RxNorm: 3 Capsule(s) PO daily No Start Date 12/20/2015 Inactive amiodarone 400 mg tablet RxNorm: 638070 1 Tablet(s) PO daily No Start Date 12/09/2017 Inactive digoxin 125 mcg tablet RxNorm: 6012247 1 Tablet(s) PO daily No Start Date 08/04/2013 Inactive Brilinta 90 mg Tab RxNorm: 1956125 1 Tablet(s) PO daily No Start Date 10/10/2011 Inactive Fish Oil 1,000 mg Cap RxNorm: 3 Capsule(s) PO daily No Start Date 12/21/2015 Inactive Flintstones Complete 18 mg iron chewable tablet RxNorm: 2 Tablet(s) PO daily No Start Date 12/20/2015 Inactive Niaspan Extended-Release 500 mg 24 hr Tab RxNorm: 5289875 1 Tablet(s) PO daily No Start Date 09/24/2011 Inactive samples tramadol 50 mg tablet RxNorm: 842308 1 Tablet(s) PO TID No Start Date 05/14/2017 Inactive aspirin 81 mg Cap, Delayed Release RxNorm: 455226 Capsule(s) PO daily No Start Date 05/01/2012 Inactive pantoprazole 40 mg tablet,delayed release RxNorm: 053724 1 Tablet(s) PO daily No Start Date 05/26/2018 Inactive metformin 500 mg Tab RxNorm: 432445 1 Tablet(s) PO BID No Start Date 05/04/2011 Inactive Singulair 10 mg tablet RxNorm: 249189 1 Tablet(s) PO daily No Start Date 05/26/2018 Inactive Prilosec OTC 20 mg tablet,delayed release RxNorm: 860164 1 Tablet(s) PO daily No Start Date 10/31/2016 Inactive Zantac 150 mg Tab RxNorm: 737286 1 Tablet(s) PO BID No Start Date 10/10/2011 Inactive Synthroid 88 mcg Tab RxNorm: 839142 1 Tablet(s) PO daily No Start Date 06/05/2011 Inactive Plavix 75 mg Tab RxNorm: 968102 1 Tablet(s) PO daily No Start Date 10/31/2011 Inactive amiodarone 200 mg tablet RxNorm: 778534 1 Tablet(s) PO BID No Start Date 01/20/2018 Inactive Cartia XT 120 mg capsule,extended release RxNorm: 620548 1 Capsule(s) PO daily and 1 QPM if HR above [address] Dr Aguilar manages No Start Date 05/26/2018 Inactive aspirin 81 mg Cap, Delayed Release RxNorm: 192260 1 Capsule(s) PO daily No Start Date 10/01/2011 Inactive Lipitor 80 mg Tab RxNorm: 196106 1 Tablet(s) PO daily No Start Date 10/17/2011 Inactive Symbicort 160 mcg-4.5 mcg/Actuation HFA Aerosol Inhaler RxNorm: 7083352 1 INH No Start Date 01/05/2015 Inactive Medication Administered Medication Codes Instructions Start Date Status Kenalog 40 mg/mL suspension for injection RxNorm: 0763328 1.5Milliliter 10/30/2017 No longer Active ketorolac 60 mg/2 mL intramuscular solution RxNorm: 801088 2Milliliter 05/14/2017 No longer Active Kenalog 40 mg/mL suspension for injection RxNorm: 6070618 Milliliter 03/06/2017 No longer Active Kenalog 40 mg/mL suspension for injection RxNorm: 8100485 1.5Milliliter 09/04/2016 No longer Active Kenalog 40 mg/mL suspension for injection RxNorm: 9221537 1Milliliter 11/11/2015 No longer Active Kenalog 40 mg/mL suspension for injection RxNorm: 4882546 1Milliliter 10/25/2015 No longer Active Kenalog 40 mg/mL suspension for injection RxNorm: 2570016 Milliliter 08/17/2014 No longer Active Kenalog 40 mg/mL suspension for injection RxNorm: 7788727 Milliliter 04/13/2014 No longer Active Kenalog 40 mg/mL Susp for Injection RxNorm: 6578443 1Milliliter 10/07/2012 No longer Active Influenza Virus Vaccine 0.5 mL RxNorm: 03/26/2012 No longer Active Pneumovax 23 25 mcg/0.5 mL Injection RxNorm: 205615 Milliliter 03/26/2012 No longer Active Kenalog 40 mg/mL Susp for Injection RxNorm: 8706888 2Milliliter 07/31/2011 No longer Active Influenza Virus [...] Item Item Code Result Date Free T4 Rsv471 FREE T4 1.66 ng/dL 05/09/2018 Tsh Ord6 TSH (3rd IS) 2.15 uIU/mL 05/09/2018 Metabolic Ord15 NA 139 mEq/L 05/09/2018 [...] 05/09/2018 Metabolic Ord15 CALCIUM 9.3 mg/dL 05/09/2018 Cbc With Differential Ord2 WBC 6.54 [...] 27.5 pg 05/09/2018 Cbc With Differential Ord2 Dodge% 11.6 % 05/09/2018 Cbc With Differential Ord2 [...] 1.18 K/ul 05/09/2018 Cbc With Differential Ord2 Dodge ABS# 0.8 K/ul 05/09/2018 Cbc With Differential Ord2 Eos ABS# 0.7 K/ul 05/09/2018 Cbc With Differential Ord2 Baso ABS# 0.1 K/ul 05/09/2018 %Hba1C Ame783 % HbA1c 98660- 6 8.9 % 05/09/2018 %Hba1C Yzd732 Gluc Ave 209 mg/dL 05/09/2018 LIPID GRP 3754828 CHOLESTEROL 184 mg/dL 01/14/2018 LIPID GRP Triglyceride 65 mg/dL 01/14/2018 LIPID GRP HDL CHOLESTEROL 53 mg/dL 01/14/2018 LIPID GRP Chol/HDL Ratio 3.47 ratio 01/14/2018 LIPID GRP NON-HDL Chol 131 mg/dL 01/14/2018 LIPID GRP LDL Cholesterol 118 mg/dL 01/14/2018 A1C HPLC 8873873 Hgb A1c 18962-1 6.5 % 01/14/2018 CBC 0522777 WBC 5.8 10e9/L 01/14/2018 CBC 3710295 RBC 4.67 10e12/L 01/14/2018 CBC 6219586 HEMOGLOBIN 12.4 g/dL 01/14/2018 CBC 0793886 HEMATOCRIT 40.6 % 01/14/2018 CBC 3813392 MCV 86.9 fL 01/14/2018 CBC 6802846 MCH 26.6 pg 01/14/2018 CBC 4416440 MCHC 30.5 g/dL 01/14/2018 CBC 8250918 PLATELET COUNT 419 10e9/L 01/14/2018 CBC 7949006 Mean Plt Volume 10.1 fL 01/14/2018 CBC 2518765 Neut Auto 60.7 % 01/14/2018 CBC 5634720 Lymph Auto 24.8 % 01/14/2018 CBC 9520808 Dodge Auto 9.7 % 01/14/2018 CBC 2471979 RDW 25.0 % 01/14/2018 CBC 9512554 Eos Auto 3.4 % 01/14/2018 CBC 7651324 Baso Auto 1.4 % 01/14/2018 CBC 2276465 Neutrophil Abs 3.52 10e9/L 01/14/2018 CBC 5939850 Lymphocyte Abs 1.44 10e9/L 01/14/2018 CBC 7125030 Monocyte Abs 0.56 10e9/L 01/14/2018 CBC 8376666 Eosinophil Abs 0.20 10e9/L 01/14/2018 CBC 5022313 Basophil Abs 0.08 10e9/L 01/14/2018 CBC 0071375 RDW-SD 75.4 fL 01/14/2018 MEAN GLUC 6933518 Calc Mean Gluc 140 mg/dL 01/14/2018 Culture Urine [id number] URINE CULTURE SEE NOTES 01/03/2018 Culture Urine [id number] Continued Results 01/03/2018 Urine Culture Ucult Complete >100,000 col/ml aerobic growth sent to ref lab 01/01/2018 Tibc Ord40 Iron 15 ug/dl 12/04/2017 Tibc Ord40 UIBC 389 ug/dL 12/04/2017 Tibc Ord40 TIBC 404 ug/dL 12/04/2017 Tibc Ord40 Fe-%Sat 3.7 % 12/04/2017 Ferritin Ord22 FERRITIN 4.0 ng/mL 12/04/2017 Cbc With Differential Ord2 WBC 9.17 [...] 24.8 pg 11/20/2017 Cbc With Differential Ord2 Dodge% 7.9 % 11/20/2017 Cbc With Differential Ord2 [...] 1.65 K/ul 11/20/2017 Cbc With Differential Ord2 Dodge ABS# 0.7 K/ul 11/20/2017 Cbc With Differential Ord2 Eos ABS# 0.3 K/ul 11/20/2017 Cbc With Differential Ord2 Baso ABS# 0.1 K/ul 11/20/2017 Comp Metabolic Ghr728 NA 142 mEq/L 11/20/2017 Comp Metabolic Jba565 K 4.1 mEq/L 11/20/2017 Comp Metabolic Aea159 CL 104 mEq/L 11/20/2017 Comp Metabolic Jdu223 CO2 29.0 mEq/L 11/20/2017 Comp Metabolic Iws318 ANION GAP 13 11/20/2017 Comp Metabolic Bzu832 GLUCOSE 178 mg/dL 11/20/2017 Comp Metabolic Iaz259 Creat 0.6 mg/dL 11/20/2017 Comp Metabolic Ofs000 eGFR 112 ml/min/1.73m2 11/20/2017 Comp Metabolic Ppf730 BUN 19 mg/dL 11/20/2017 Comp Metabolic Jpc101 B/C Ratio 33.9 Ratio 11/20/2017 Comp Metabolic Emg144 CALCIUM 9.3 mg/dL 11/20/2017 Comp Metabolic Pyh289 ALK PHOS 60 U/L 11/20/2017 Comp Metabolic Uuw384 AST(SGOT) 13 U/L 11/20/2017 Comp Metabolic Fmm250 ALT(SGPT) 14 U/L 11/20/2017 Comp Metabolic Rdf700 BILI T 0.4 mg/dL 11/20/2017 Comp Metabolic Qbc195 ALBUMIN 4.1 g/dL 11/20/2017 Comp Metabolic Rjy719 TPRO 6.0 g/dL 11/20/2017 Comp Metabolic Wex827 GLOB 1.9 g/dL 11/20/2017 Comp Metabolic Ypb470 A/G Ratio 2.2 Ratio 11/20/2017 Comp Metabolic Mlq973 Osmo 290 mOsmo 11/20/2017 Comp Metabolic Bpm225 NA 142 mEq/L 11/13/2017 Comp Metabolic Ubp471 K 4.2 mEq/L 11/13/2017 Comp Metabolic Rnw203 CL 104 mEq/L 11/13/2017 Comp Metabolic Yvc458 CO2 26.0 mEq/L 11/13/2017 Comp Metabolic Xfc466 ANION GAP 16 11/13/2017 Comp Metabolic Kwo284 GLUCOSE 115 mg/dL 11/13/2017 Comp Metabolic Xny454 Creat 0.6 mg/dL 11/13/2017 Comp Metabolic Sst774 eGFR 114 ml/min/1.73m2 11/13/2017 Comp Metabolic Out270 BUN 15 mg/dL 11/13/2017 Comp Metabolic Dsb120 B/C Ratio 27.3 Ratio 11/13/2017 Comp Metabolic Paf419 CALCIUM 9.2 mg/dL 11/13/2017 Comp Metabolic Fcd898 ALK PHOS 59 U/L 11/13/2017 Comp Metabolic Chb445 AST(SGOT) 12 U/L 11/13/2017 Comp Metabolic Zhy500 ALT(SGPT) 13 U/L 11/13/2017 Comp Metabolic Lkx920 BILI T 0.5 mg/dL 11/13/2017 Comp Metabolic Bxd364 ALBUMIN 4.0 g/dL 11/13/2017 Comp Metabolic Hod778 TPRO 6.0 g/dL 11/13/2017 Comp Metabolic Nvb676 GLOB 2.0 g/dL 11/13/2017 Comp Metabolic Ndk482 A/G Ratio 2.0 Ratio 11/13/2017 Comp Metabolic Pfb107 Osmo 285 mOsmo 11/13/2017 Cbc With Differential [...] 24.8 pg 11/13/2017 Cbc With Differential Ord2 Dodge% 7.8 % 11/13/2017 Cbc With Differential Ord2 MCHC 30.6 pg 11/13/2017 Cbc With Differential Ord2 Eos% 2.3 % 11/13/2017 Cbc With Differential Ord2 Baso% 0.6 % 11/13/2017 Cbc With Differential Ord2 PLT 458 K/ul 11/13/2017 Cbc With Differential Ord2 RDW 15.2 % 11/13/2017 Cbc With Differential Ord2 Neut ABS# 8.04 K/ul 11/13/2017 Cbc With Differential Ord2 Lymph ABS# 1.57 K/ul 11/13/2017 Cbc With Differential Ord2 Dodge ABS# 0.8 K/ul 11/13/2017 Cbc With Differential Ord2 Eos ABS# 0.3 K/ul 11/13/2017 Cbc With Differential Ord2 Baso ABS# 0.1 K/ul 11/13/2017 Comp Metabolic Znj478 NA 138 mEq/L 09/20/2017 Comp Metabolic Fka399 K 4.0 mEq/L 09/20/2017 Comp Metabolic Cru868 CL 99 mEq/L 09/20/2017 Comp Metabolic Gxw933 CO2 26.0 mEq/L 09/20/2017 Comp Metabolic Psf780 ANION GAP 17 09/20/2017 Comp Metabolic Fpp873 GLUCOSE 275 mg/dL 09/20/2017 Comp Metabolic Zjm728 Creat 0.6 mg/dL 09/20/2017 Comp Metabolic Yil428 eGFR 96 ml/min/1.73m2 09/20/2017 Comp Metabolic Zed902 BUN 17 mg/dL 09/20/2017 Comp Metabolic Pyx082 B/C Ratio 26.6 Ratio 09/20/2017 Comp Metabolic Sjx514 CALCIUM 9.5 mg/dL 09/20/2017 Comp Metabolic Vui598 ALK PHOS 57 U/L 09/20/2017 Comp Metabolic Vle414 AST(SGOT) 13 U/L 09/20/2017 Comp Metabolic Zvh234 ALT(SGPT) 13 U/L 09/20/2017 Comp Metabolic Gtu436 BILI T 0.5 mg/dL 09/20/2017 Comp Metabolic Bog138 ALBUMIN 4.1 g/dL 09/20/2017 Comp Metabolic Cwr908 TPRO 5.9 g/dL 09/20/2017 Comp Metabolic Wpe514 GLOB 1.8 g/dL 09/20/2017 Comp Metabolic Iob460 A/G Ratio 2.3 Ratio 09/20/2017 Comp Metabolic Uuo909 Osmo 287 mOsmo 09/20/2017 %Hba1C Lvw098 % HbA1c 76709- 6 7.2 % 09/20/2017 %Hba1C Tqb573 Gluc Ave 160 mg/dL 09/20/2017 Cbc With Differential Ord2 WBC 9.05 [...] 26.9 pg 09/20/2017 Cbc With Differential Ord2 Dodge% 9.9 % 09/20/2017 Cbc With Differential Ord2 [...] 1.55 K/ul 09/20/2017 Cbc With Differential Ord2 Dodge ABS# 0.9 K/ul 09/20/2017 Cbc With Differential Ord2 Eos ABS# 0.4 K/ul 09/20/2017 Cbc With Differential Ord2 Baso ABS# 0.1 K/ul 09/20/2017 MEAN GLUC 3925136 Calc Mean Gluc 169 mg/dL 02/28/2017 CBC 6105002 WBC 7.6 10e9/L 02/28/2017 CBC 5919546 RBC 4.91 10e12/L 02/28/2017 CBC 7559024 HEMOGLOBIN 13.2 g/dL 02/28/2017 CBC 4910355 HEMATOCRIT 42.7 % 02/28/2017 CBC 2923538 MCV 87.0 fL 02/28/2017 CBC 8491156 MCH 26.9 pg 02/28/2017 CBC 8820584 MCHC 30.9 g/dL 02/28/2017 CBC 7362798 PLATELET COUNT 341 10e9/L 02/28/2017 CBC 2396056 Mean Plt Volume 10.7 fL 02/28/2017 CBC 8524564 Neut Auto 62.1 % 02/28/2017 CBC 1642002 Lymph Auto 20.2 % 02/28/2017 CBC 5906891 Dodge Auto 9.3 % 02/28/2017 CBC 7908578 Eos Auto 7.1 % 02/28/2017 CBC 1291429 RDW 15.8 % 02/28/2017 CBC 7148056 Baso Auto 1.3 % 02/28/2017 CBC 0263556 Neutrophil Abs 4.72 10e9/L 02/28/2017 CBC 0792021 Lymphocyte Abs 1.54 10e9/L 02/28/2017 CBC 3962377 Monocyte Abs 0.71 10e9/L 02/28/2017 CBC 9290568 Eosinophil Abs 0.54 10e9/L 02/28/2017 CBC 2487898 Basophil Abs 0.10 10e9/L 02/28/2017 CBC 7405861 RDW-SD 49.0 fL 02/28/2017 A1C HPLC 4532857 Hgb A1c 01912-9 7.5 % 02/28/2017 GFR CALC 7464857 GFR Non Afr Amr >60 mL/min 02/28/2017 GFR CALC 9610027 GFR Afr Amr >60 mL/min 02/28/2017 LIPID GRP CHOLESTEROL 189 mg/dL 02/28/2017 LIPID GRP Triglyceride 124 mg/dL 02/28/2017 LIPID GRP HDL CHOLESTEROL 43 mg/dL 02/28/2017 LIPID GRP Chol/HDL Ratio 4.40 ratio 02/28/2017 LIPID GRP NON-HDL Chol 146 mg/dL 02/28/2017 LIPID GRP LDL Cholesterol 121 mg/dL 02/28/2017 CHEM 14 4637358 AST 15 U/L 02/28/2017 CHEM 14 6741177 ALT 16 U/L 02/28/2017 CHEM 14 6561380 BUN 18 mg/dL 02/28/2017 CHEM 14 9695561 ALBUMIN 4.0 g/dL 02/28/2017 CHEM 14 1390026 CHLORIDE 104 mmol/L 02/28/2017 CHEM 14 8909333 Bili Total 0.6 mg/dL 02/28/2017 CHEM 14 3425962 ALK PHOS 53 U/L 02/28/2017 CHEM 14 0240731 SODIUM 143 mmol/L 02/28/2017 CHEM 14 7113759 CREATININE 0.66 mg/dL 02/28/2017 CHEM 14 5948344 CALCIUM 9.2 mg/dL 02/28/2017 CHEM 14 7617453 POTASSIUM 3.9 mmol/L 02/28/2017 CHEM 14 4274691 TOTAL PROTEIN 6.6 g/dL 02/28/2017 CHEM 14 5255972 GLUCOSE 146 mg/dL 02/28/2017 CHEM 14 5969608 Bicarbonate 30 mmol/L 02/28/2017 CHEM 14 5625534 AGAP 9 mmol/L 02/28/2017 GFR CALC 1283854 GFR Non Afr Amr >60 mL/min 08/21/2016 GFR CALC 8928997 GFR Afr Amr >60 mL/min 08/21/2016 TSH 7166000 TSH 1.485 uIU/mL 08/21/2016 CHEM 14 7460709 AST 16 U/L 08/21/2016 CHEM 14 5380869 ALT 14 U/L 08/21/2016 CHEM 14 4026553 BUN 14 mg/dL 08/21/2016 CHEM 14 5297106 ALBUMIN 4.1 g/dL 08/21/2016 CHEM 14 5633041 CHLORIDE 105 mmol/L 08/21/2016 CHEM 14 3858555 Bili Total 0.5 mg/dL 08/21/2016 CHEM 14 9777954 ALK PHOS 53 U/L 08/21/2016 CHEM 14 2733544 SODIUM 141 mmol/L 08/21/2016 CHEM 14 0042816 CREATININE 0.66 mg/dL 08/21/2016 CHEM 14 3340088 CALCIUM 9.3 mg/dL 08/21/2016 CHEM 14 9335853 POTASSIUM 4.0 mmol/L 08/21/2016 CHEM 14 0865066 TOTAL PROTEIN 6.6 g/dL 08/21/2016 CHEM 14 3366187 GLUCOSE 145 mg/dL 08/21/2016 CHEM 14 5074512 Bicarbonate 29 mmol/L 08/21/2016 CHEM 14 0474519 AGAP 7 mmol/L 08/21/2016 A1C HPLC 6485531 Hgb A1c 69082-0 7.4 % 08/21/2016 LIPID GRP CHOLESTEROL 211 mg/dL 08/21/2016 LIPID GRP Triglyceride 105 mg/dL 08/21/2016 LIPID GRP HDL CHOLESTEROL 45 mg/dL 08/21/2016 LIPID GRP Chol/HDL Ratio 4.69 ratio 08/21/2016 LIPID GRP NON-HDL Chol 166 mg/dL 08/21/2016 LIPID GRP LDL Cholesterol 145 mg/dL 08/21/2016 FREE T4 2550341 T4 Free 1.39 ng/dL 08/21/2016 MEAN GLUC 6814217 Calc Mean Gluc 166 mg/dL 08/21/2016 CBC 6513132 WBC 6.8 10e9/L 08/21/2016 CBC 0710094 RBC 4.87 10e12/L 08/21/2016 CBC 3102161 HEMOGLOBIN 12.7 g/dL 08/21/2016 CBC 0290208 HEMATOCRIT 40.5 % 08/21/2016 CBC 9859000 MCV 83.2 fL 08/21/2016 CBC 5026131 MCH 26.1 pg 08/21/2016 CBC 9291623 MCHC 31.4 g/dL 08/21/2016 CBC 0626357 PLATELET COUNT 334 10e9/L 08/21/2016 CBC 9588649 Mean Plt Volume 10.5 fL 08/21/2016 CBC 2987407 Neut Auto 56.4 % 08/21/2016 CBC 9756363 Lymph Auto 23.5 % 08/21/2016 CBC 2347523 Dodge Auto 9.7 % 08/21/2016 CBC 3528604 Eos Auto 9.5 % 08/21/2016 CBC 0112493 RDW 16.6 % 08/21/2016 CBC 2594912 Baso Auto 0.9 % 08/21/2016 CBC 2012197 Neutrophil Abs 3.84 10e9/L 08/21/2016 CBC 5941626 Lymphocyte Abs 1.60 10e9/L 08/21/2016 CBC 5692996 Monocyte Abs 0.66 10e9/L 08/21/2016 CBC 3437267 Eosinophil Abs 0.65 10e9/L 08/21/2016 CBC 8610498 Basophil Abs 0.06 10e9/L 08/21/2016 CBC 6158045 RDW-SD 49.7 fL 08/21/2016 Tsh Ord6 hTSH II 0.82 uIU/mL 04/24/2016 Cbc With Differential Ord2 WBC 6.53 K/ul 04/24/2016 Cbc With Differential Ord2 RBC 4.73 M/ul 04/24/2016 Cbc With Differential Ord2 HGB 12.0 g/dl 04/24/2016 Cbc With Differential Ord2 Neut% 55.1 % 04/24/2016 Cbc With Differential Ord2 HCT 38.9 % 04/24/2016 Cbc With Differential Ord2 MCV 82.2 fl 04/24/2016 Cbc With Differential Ord2 Lymph% 22.8 % 04/24/2016 Cbc With Differential Ord2 Dodge% 10.9 % 04/24/2016 Cbc With Differential Ord2 [...] 1.49 K/ul 04/24/2016 Cbc With Differential Ord2 Dodge ABS# 0.7 K/ul 04/24/2016 Cbc With Differential Ord2 Eos ABS# 0.7 K/ul 04/24/2016 Cbc With Differential Ord2 Baso ABS# 0.1 K/ul 04/24/2016 Comp Metabolic Nuj258 NA 138 mEq/L 04/24/2016 Comp Metabolic Sun645 K 4.3 mEq/L 04/24/2016 Comp Metabolic Pli153 CL 103 mEq/L 04/24/2016 Comp Metabolic Nhf254 CO2 28.0 mEq/L 04/24/2016 Comp Metabolic Rfx323 ANION GAP 11 04/24/2016 Comp Metabolic Kwb844 GLUCOSE 138 mg/dL 04/24/2016 Comp Metabolic Jna895 Creat 0.6 mg/dL 04/24/2016 Comp Metabolic Rry025 eGFR 98 ml/min/1.73m2 04/24/2016 Comp Metabolic Uoc132 BUN 16 mg/dL 04/24/2016 Comp Metabolic Hcy698 B/C Ratio 25.4 Ratio 04/24/2016 Comp Metabolic Eph594 CALCIUM 9.2 mg/dL 04/24/2016 Comp Metabolic Wrb745 ALK PHOS 55 U/L 04/24/2016 Comp Metabolic Brd448 AST(SGOT) 16 U/L 04/24/2016 Comp Metabolic Iam217 ALT(SGPT) 16 U/L 04/24/2016 Comp Metabolic Nqz759 BILI T 0.6 mg/dL 04/24/2016 Comp Metabolic Jvn625 ALBUMIN 3.9 g/dL 04/24/2016 Comp Metabolic Jka850 TPRO 6.1 g/dL 04/24/2016 Comp Metabolic Znj751 GLOB 2.2 g/dL 04/24/2016 Comp Metabolic Ayc358 A/G Ratio 1.7 Ratio 04/24/2016 Comp Metabolic Lhb868 Osmo 279 mOsmo 04/24/2016 Lipid Ord30 CHOL 208 mg/dL 04/24/2016 Lipid Ord30 HDL 42.0 mg/dl 04/24/2016 Lipid Ord30 TRIG 98 mg/dL 04/24/2016 Lipid Ord30 LDL 146 mg/dL 04/24/2016 Lipid Ord30 C/HDL 5.0 Ratio 04/24/2016 %Hba1C Waq767 % HbA1c 00219- 6 7.5 % 04/24/2016 %Hba1C Yyq818 Gluc Ave 169 mg/dL 04/24/2016 Free T4 Hks749 FREE T4 1.17 ng/dL 04/24/2016 Digoxin Ord9 DIGOXIN 0.9 NG/ML 02/03/2016 Free T4 Fil229 FREE T4 1.17 ng/dL 12/07/2015 %Hba1C Gqs155 % HbA1c 15223- 6 7.5 % 12/07/2015 %Hba1C Uwk323 Gluc Ave 169 mg/dL 12/07/2015 Tsh Ord6 [...] 83.2 fl 12/07/2015 Cbc With Differential Ord2 Dodge% 9.3 % 12/07/2015 Cbc With Differential Ord2 MCH 25.5 pg 12/07/2015 Cbc With Differential Ord2 Eos% [...] 1.23 K/ul 12/07/2015 Cbc With Differential Ord2 Dodge ABS# 0.7 K/ul 12/07/2015 Cbc With Differential Ord2 Eos ABS# 0.3 K/ul 12/07/2015 Cbc With Differential Ord2 Baso ABS# 0.1 K/ul 12/07/2015 Lipid Ord30 CHOL 196 mg/dL 12/07/2015 Lipid Ord30 HDL 41.0 mg/dl 12/07/2015 Lipid Ord30 TRIG 142 mg/dL 12/07/2015 Lipid Ord30 LDL 127 mg/dL 12/07/2015 Lipid Ord30 C/HDL 4.8 Ratio 12/07/2015 Comp Metabolic Zja713 NA 139 mEq/L 12/07/2015 Comp Metabolic Fpe001 K 4.3 mEq/L 12/07/2015 Comp Metabolic Kka785 CL 101 mEq/L 12/07/2015 Comp Metabolic Aca028 CO2 33.0 mEq/L 12/07/2015 Comp Metabolic Nmc656 ANION GAP 9 12/07/2015 Comp Metabolic Tpz140 GLUCOSE 159 mg/dL 12/07/2015 Comp Metabolic Fdr562 Creat 0.6 mg/dL 12/07/2015 Comp Metabolic Dbj638 eGFR 108 ml/min/1.73m2 12/07/2015 Comp Metabolic Zww433 BUN 13 mg/dL 12/07/2015 Comp Metabolic Emf022 B/C Ratio 22.4 Ratio 12/07/2015 Comp Metabolic Juf564 CALCIUM 9.0 mg/dL 12/07/2015 Comp Metabolic Nhe932 ALK PHOS 60 U/L 12/07/2015 Comp Metabolic Ygk965 AST(SGOT) 16 U/L 12/07/2015 Comp Metabolic Rwr826 ALT(SGPT) 19 U/L 12/07/2015 Comp Metabolic Ugk512 BILI T 0.6 mg/dL 12/07/2015 Comp Metabolic Xcv574 ALBUMIN 4.0 g/dL 12/07/2015 Comp Metabolic Jwg050 TPRO 6.0 g/dL 12/07/2015 Comp Metabolic Vfs840 GLOB 2.0 g/dL 12/07/2015 Comp Metabolic Mos312 A/G Ratio 1.9 Ratio 12/07/2015 Comp Metabolic Agw560 Osmo 281 mOsmo 12/07/2015 Free T4 Eoo189 FREE T4 1.31 ng/dL 06/14/2015 Cbc With [...] Ord6 hTSH II 1.10 uIU/mL 06/14/2015 %Hba1C Tyn116 % HbA1c 98718- 6 6.8 % 06/14/2015 %Hba1C Adn773 Gluc Ave 148 mg/dL 06/14/2015 A1C HPLC 9135205 A1C HPLC 29456-7 6.4 % 12/07/2014 TSH 3483534 TSH 1.106 uIU/ML 12/07/2014 FREE T4 7446436 FREE T4 1.37 NG/DL 12/07/2014 CHEM 14 9341697 AST 14 U/L 12/07/2014 CHEM 14 0041427 ALT 12 IU/L 12/07/2014 CHEM 14 7036096 BUN 12 MG/DL 12/07/2014 CHEM 14 4318534 ALBUMIN 3.9 GM/DL 12/07/2014 CHEM 14 9772635 CHLORIDE 103 MMOL/L 12/07/2014 CHEM 14 9994736 BILI TOT 0.6 MG/DL 12/07/2014 CHEM 14 4576031 ALK PHOS 49 U/L 12/07/2014 CHEM 14 7477327 SODIUM 140 MMOL/L 12/07/2014 CHEM 14 8373785 CREATININE 0.57 MG/DL 12/07/2014 CHEM 14 3123697 CALCIUM 9.5 MG/DL 12/07/2014 CHEM 14 1616253 POTASSIUM 4.0 MMOL/L 12/07/2014 CHEM 14 4267990 PROT TOT 6.5 GM/DL 12/07/2014 CHEM 14 7221576 GLUCOSE 110 MG/DL 12/07/2014 CHEM 14 4757439 BICARB 29 MMOL/L 12/07/2014 CHEM 14 1639459 ANION GAP 8 MEQ/L 12/07/2014 GFR CALC 7839417 GFR AA >60 ML/MIN 12/07/2014 GFR CALC 9672558 GFR NON-AA >60 ML/MIN 12/07/2014 LIPID GRP HDL TEST 46 MG/DL 12/07/2014 LIPID GRP TRIG 119 MG/DL 12/07/2014 LIPID GRP TEST LDL 108 MG/DL 12/07/2014 LIPID GRP CHOL 178 MG/DL 12/07/2014 LIPID GRP RCHOL/HDL 3.87 RATIO 12/07/2014 LIPID GRP 0983753 NON-HDL CH 132 MG/DL 12/07/2014 CBC 4344901 WBC 6.4 10e9/L 12/07/2014 CBC 0128599 RBC 4.51 10e12/L 12/07/2014 CBC 7754033 HGB 12.2 g/dL 12/07/2014 CBC 3461592 HCT DET 39.0 % 12/07/2014 CBC 3358120 MCV 86.5 fL 12/07/2014 CBC 1350444 MCH 27.1 pg 12/07/2014 CBC 3709034 MCHC 31.3 g/dL 12/07/2014 CBC 1293047 PLT 325 10e9/L 12/07/2014 CBC 4235418 MPV 10.4 fL 12/07/2014 CBC 9230445 TIM % 62.0 % 12/07/2014 CBC 9806288 LY % 21.4 % 12/07/2014 CBC 4714573 MON % 9.5 % 12/07/2014 CBC 4403332 EOS % 6.3 % 12/07/2014 CBC 7927678 BASO % 0.8 % 12/07/2014 CBC 4589911 RDW 15.8 % 12/07/2014 CBC 6180631 ABS TIM 3.97 10e9/L 12/07/2014 CBC 2618701 ABS LYMPH 1.37 10e9/L 12/07/2014 CBC 4554585 ABS MONO 0.61 10e9/L 12/07/2014 CBC 1115609 ABS EOS 0.40 10e9/L 12/07/2014 CBC 9528037 ABS BASO 0.05 10e9/L 12/07/2014 CBC 5817752 RDW-SD 48.8 fL 12/07/2014 CHEM 14 3157868 AST 17 U/L 11/04/2013 CHEM 14 5066209 ALT 16 IU/L 11/04/2013 CHEM 14 9033622 BUN 13 MG/DL 11/04/2013 CHEM 14 3092118 ALBUMIN 4.3 GM/DL 11/04/2013 CHEM 14 0978607 CHLORIDE 104 MMOL/L 11/04/2013 CHEM 14 6692020 BILI TOT 0.7 MG/DL 11/04/2013 CHEM 14 4589352 ALK PHOS 67 U/L 11/04/2013 CHEM 14 0988254 SODIUM 140 MMOL/L 11/04/2013 CHEM 14 1836591 CREATININE 0.64 MG/DL 11/04/2013 CHEM 14 3480133 CALCIUM 9.5 MG/DL 11/04/2013 CHEM 14 8626016 POTASSIUM 4.0 MMOL/L 11/04/2013 CHEM 14 8833574 PROT TOT 6.1 GM/DL 11/04/2013 CHEM 14 3683114 GLUCOSE 157 MG/DL 11/04/2013 CHEM 14 1309158 BICARB 27 MMOL/L 11/04/2013 CHEM 14 8025811 ANION GAP 9 MEQ/L 11/04/2013 LIPID GRP HDL TEST 45 MG/DL 11/04/2013 LIPID GRP TRIG 104 MG/DL 11/04/2013 LIPID GRP TEST LDL 82 MG/DL 11/04/2013 LIPID GRP CHOL 148 MG/DL 11/04/2013 LIPID GRP RCHOL/HDL 3.29 RATIO 11/04/2013 TSH 9128596 TSH 0.841 uIU/ML 11/04/2013 FREE T4 3145329 FREE T4 1.44 NG/DL 11/04/2013 GFR CALC 1650575 GFR AA >60 ML/MIN 11/04/2013 GFR CALC 1204344 GFR NON-AA >60 ML/MIN 11/04/2013 CBC 5378739 WBC 6.2 10e9/L 11/04/2013 CBC 2695009 RBC 4.38 10e12/L 11/04/2013 CBC 8226004 HGB 11.8 g/dL 11/04/2013 CBC 2787159 HCT DET 37.5 % 11/04/2013 CBC 7349372 MCV 85.6 fL 11/04/2013 CBC 1501233 MCH 26.9 pg 11/04/2013 CBC 8998003 MCHC 31.5 g/dL 11/04/2013 CBC 9129834 PLT 330 10e9/L 11/04/2013 CBC 2298115 MPV 10.6 fL 11/04/2013 CBC 0573772 TIM % 60.8 % 11/04/2013 CBC 4133563 LY % 22.1 % 11/04/2013 CBC 4469199 MON % 9.6 % 11/04/2013 CBC 1737050 EOS % 6.4 % 11/04/2013 CBC 2448207 BASO % 1.1 % 11/04/2013 CBC 6769945 RDW 15.6 % 11/04/2013 CBC 9208450 ABS TIM 3.77 10e9/L 11/04/2013 CBC 5754587 ABS LYMPH 1.37 10e9/L 11/04/2013 CBC 9896507 ABS MONO 0.60 10e9/L 11/04/2013 CBC 5117782 ABS EOS 0.40 10e9/L 11/04/2013 CBC 3357010 ABS BASO 0.07 10e9/L 11/04/2013 CBC 1279574 RDW-SD 48.0 fL 11/04/2013 DIGOXIN 3431778 DIGOXIN 0.5 NG/ML 11/04/2013 A1C HPLC 7461253 A1C HPLC 10350-0 7.2 % 11/04/2013 LIVER PNL 8941650 BILI DIR 0.2 MG/DL 07/28/2013 A1C HPLC 3353228 A1C HPLC 04352-4 7.6 % 07/28/2013 CBC 4764984 WBC 7.2 10e9/L 07/28/2013 CBC 8748401 RBC 4.65 10e12/L 07/28/2013 CBC 7289047 HGB 12.6 g/dL 07/28/2013 CBC 6105930 HCT DET 39.6 % 07/28/2013 CBC 8821997 MCV 85.2 fL 07/28/2013 CBC 2871458 MCH 27.1 pg 07/28/2013 CBC 1845843 MCHC 31.8 g/dL 07/28/2013 CBC 4509855 PLT 344 10e9/L 07/28/2013 CBC 6557624 MPV 10.7 fL 07/28/2013 CBC 3501512 TIM % 61.4 % 07/28/2013 CBC 5844888 LY % 22.4 % 07/28/2013 CBC 2930542 MON % 8.4 % 07/28/2013 CBC 5721245 EOS % 6.8 % 07/28/2013 CBC 0533730 BASO % 1.0 % 07/28/2013 CBC 7207573 RDW 15.5 % 07/28/2013 CBC 4124192 ABS TIM 4.42 10e9/L 07/28/2013 CBC 0271679 ABS LYMPH 1.61 10e9/L 07/28/2013 CBC 9755956 ABS MONO 0.60 10e9/L 07/28/2013 CBC 4179934 ABS EOS 0.49 10e9/L 07/28/2013 CBC 9568469 ABS BASO 0.07 10e9/L 07/28/2013 CBC 9255345 RDW-SD 47.2 fL 07/28/2013 GFR CALC 1150874 GFR AA >60 ML/MIN 07/28/2013 GFR CALC 5760244 GFR NON-AA >60 ML/MIN 07/28/2013 LIPID GRP HDL TEST 38 MG/DL 07/28/2013 LIPID GRP TRIG 137 MG/DL 07/28/2013 LIPID GRP TEST LDL 73 MG/DL 07/28/2013 LIPID GRP CHOL 138 MG/DL 07/28/2013 LIPID GRP RCHOL/HDL 3.63 RATIO 07/28/2013 CHEM 14 5268074 AST 20 U/L 07/28/2013 CHEM 14 1295420 ALT 19 IU/L 07/28/2013 CHEM 14 7862885 BUN 13 MG/DL 07/28/2013 CHEM 14 5466093 ALBUMIN 4.1 GM/DL 07/28/2013 CHEM 14 1177916 CHLORIDE 102 MMOL/L 07/28/2013 CHEM 14 2890034 BILI TOT 0.7 MG/DL 07/28/2013 CHEM 14 0842145 ALK PHOS 62 U/L 07/28/2013 CHEM 14 0650051 SODIUM 139 MMOL/L 07/28/2013 CHEM 14 5976501 CREATININE 0.66 MG/DL 07/28/2013 CHEM 14 1711991 CALCIUM 9.3 MG/DL 07/28/2013 CHEM 14 2919452 POTASSIUM 4.4 MMOL/L 07/28/2013 CHEM 14 9671630 PROT TOT 6.2 GM/DL 07/28/2013 CHEM 14 7567610 GLUCOSE 160 MG/DL 07/28/2013 CHEM 14 4495706 BICARB 29 MMOL/L 07/28/2013 CHEM 14 0060850 ANION GAP 8 MEQ/L 07/28/2013 DIGOXIN 3883887 DIGOXIN 0.4 NG/ML 07/28/2013 DIGOXIN 1819481 DIGOXIN 0.6 NG/ML 05/12/2013 CHEM 14 0906273 AST 14 U/L 04/29/2013 CHEM 14 2443582 ALT 14 IU/L 04/29/2013 CHEM 14 7222171 BUN 13 MG/DL 04/29/2013 CHEM 14 3007124 ALBUMIN 4.1 GM/DL 04/29/2013 CHEM 14 5130529 CHLORIDE 102 MMOL/L 04/29/2013 CHEM 14 8992269 BILI TOT 0.7 MG/DL 04/29/2013 CHEM 14 6532777 ALK PHOS 75 U/L 04/29/2013 CHEM 14 5938046 SODIUM 139 MMOL/L 04/29/2013 CHEM 14 2016634 CREATININE 0.62 MG/DL 04/29/2013 CHEM 14 9140510 CALCIUM 9.3 MG/DL 04/29/2013 CHEM 14 3434088 POTASSIUM 4.0 MMOL/L 04/29/2013 CHEM 14 5715209 PROT TOT 6.5 GM/DL 04/29/2013 CHEM 14 3644928 GLUCOSE 152 MG/DL 04/29/2013 CHEM 14 7121196 BICARB 31 MMOL/L 04/29/2013 CHEM 14 4134037 ANION GAP 6 MEQ/L 04/29/2013 LIPID GRP HDL TEST 43 MG/DL 04/29/2013 LIPID GRP TRIG 111 MG/DL 04/29/2013 LIPID GRP TEST LDL 65 MG/DL 04/29/2013 LIPID GRP CHOL 130 MG/DL 04/29/2013 LIPID GRP RCHOL/HDL 3.02 RATIO 04/29/2013 GFR CALC 9897248 GFR AA >60 ML/MIN 04/29/2013 GFR CALC 6095563 GFR NON-AA >60 ML/MIN 04/29/2013 A1C 9354306 A1C HPLC 04297- 6 7.5 % 04/29/2013 TSH 2523539 TSH 1.161 uIU/ML 04/29/2013 CBC 9622714 WBC 7.4 10e9/L 04/29/2013 CBC 4971327 RBC 4.70 10e12/L 04/29/2013 CBC 3545855 HGB 12.8 g/dL 04/29/2013 CBC 6885968 HCT DET 40.1 % 04/29/2013 CBC 3659591 MCV 85.3 fL 04/29/2013 CBC 9842052 MCH 27.2 pg 04/29/2013 CBC 1183903 MCHC 31.9 g/dL 04/29/2013 CBC 2412836 PLT 312 10e9/L 04/29/2013 CBC 5047987 MPV 10.4 fL 04/29/2013 CBC 8849034 TIM % 64.9 % 04/29/2013 CBC 5061938 LY % 20.0 % 04/29/2013 CBC 2305948 MON % 8.6 % 04/29/2013 CBC 1340416 EOS % 5.3 % 04/29/2013 CBC 3075677 BASO % 1.2 % 04/29/2013 CBC 4078415 RDW 15.4 % 04/29/2013 CBC 4539452 ABS TIM 4.80 10e9/L 04/29/2013 CBC 5719111 ABS LYMPH 1.48 10e9/L 04/29/2013 CBC 6114809 ABS MONO 0.64 10e9/L 04/29/2013 CBC 3586355 ABS EOS 0.39 10e9/L 04/29/2013 CBC 4443782 ABS BASO 0.09 10e9/L 04/29/2013 CBC 0882173 RDW-SD 47.3 fL 04/29/2013 A1C 6496449 A1C HPLC 65062- 6 7.2 % 12/28/2012 TSH 6727147 TSH 1.406 uIU/ML 12/28/2012 GFR CALC 8069277 GFR AA >60 ML/MIN 12/27/2012 GFR CALC 9736224 GFR NON-AA >60 ML/MIN 12/27/2012 CBC 2418749 WBC 6.8 10e9/L 12/27/2012 CBC 5553751 RBC 4.72 10e12/L 12/27/2012 CBC 1904432 HGB 12.5 g/dL 12/27/2012 CBC 8037628 HCT DET 39.6 % 12/27/2012 CBC 3599913 MCV 83.9 fL 12/27/2012 CBC 7828848 MCH 26.5 pg 12/27/2012 CBC 9671990 MCHC 31.6 g/dL 12/27/2012 CBC 5579311 PLT 336 10e9/L 12/27/2012 CBC 7464592 MPV 10.4 fL 12/27/2012 CBC 1950194 TIM % 60.7 % 12/27/2012 CBC 8897928 LY % 24.6 % 12/27/2012 CBC 8050759 MON % 8.4 % 12/27/2012 CBC 6278253 EOS % 5.3 % 12/27/2012 CBC 7157188 BASO % 1.0 % 12/27/2012 CBC 6702381 RDW 16.6 % 12/27/2012 CBC 0955341 ABS TIM 4.13 10e9/L 12/27/2012 CBC 5387753 ABS LYMPH 1.67 10e9/L 12/27/2012 CBC 9354560 ABS MONO 0.57 10e9/L 12/27/2012 CBC 0059812 ABS EOS 0.36 10e9/L 12/27/2012 CBC 6657800 ABS BASO 0.07 10e9/L 12/27/2012 CBC 5049887 RDW-SD 50.1 fL 12/27/2012 CHEM 14 7110711 AST 14 U/L 12/27/2012 CHEM 14 6101531 ALT 13 IU/L 12/27/2012 CHEM 14 3002135 BUN 13 MG/DL 12/27/2012 CHEM 14 1253194 ALBUMIN 4.5 GM/DL 12/27/2012 CHEM 14 0465166 CHLORIDE 105 MMOL/L 12/27/2012 CHEM 14 8312774 BILI TOT 0.8 MG/DL 12/27/2012 CHEM 14 3723241 ALK PHOS 69 U/L 12/27/2012 CHEM 14 1867267 SODIUM 142 MMOL/L 12/27/2012 CHEM 14 9578156 CREATININE 0.73 MG/DL 12/27/2012 CHEM 14 8214293 CALCIUM 9.7 MG/DL 12/27/2012 CHEM 14 2946333 POTASSIUM 4.1 MMOL/L 12/27/2012 CHEM 14 7213858 PROT TOT 6.8 GM/DL 12/27/2012 CHEM 14 9418367 GLUCOSE 133 MG/DL 12/27/2012 CHEM 14 7437589 BICARB 30 MMOL/L 12/27/2012 CHEM 14 8505401 ANION GAP 7 MEQ/L 12/27/2012 LIPID GRP HDL TEST 54 MG/DL 12/27/2012 LIPID GRP TRIG 94 MG/DL 12/27/2012 LIPID GRP TEST LDL 42 MG/DL 12/27/2012 LIPID GRP CHOL 115 MG/DL 12/27/2012 LIPID GRP RCHOL/HDL 2.13 RATIO 12/27/2012 CHEM 14 6128150 AST 15 U/L 08/27/2012 CHEM 14 7342226 ALT 17 IU/L 08/27/2012 CHEM 14 5077047 BUN 14 MG/DL 08/27/2012 CHEM 14 9874603 ALBUMIN 4.2 GM/DL 08/27/2012 CHEM 14 5536280 CHLORIDE 103 MMOL/L 08/27/2012 CHEM 14 9129655 BILI TOT 0.6 MG/DL 08/27/2012 CHEM 14 0807845 ALK PHOS 86 U/L 08/27/2012 CHEM 14 4917576 SODIUM 141 MMOL/L 08/27/2012 CHEM 14 2514523 CREATININE 0.64 MG/DL 08/27/2012 CHEM 14 5611418 CALCIUM 9.5 MG/DL 08/27/2012 CHEM 14 7128952 POTASSIUM 4.1 MMOL/L 08/27/2012 CHEM 14 1800450 PROT TOT 6.1 GM/DL 08/27/2012 CHEM 14 9745825 GLUCOSE 151 MG/DL 08/27/2012 CHEM 14 0246734 BICARB 30 MMOL/L 08/27/2012 CHEM 14 5580322 ANION GAP 8 MEQ/L 08/27/2012 FREE T4 1875051 FREE T4 1.36 NG/DL 08/27/2012 CBC 2563570 WBC 7.8 10e9/L 08/27/2012 CBC 0341524 RBC 4.54 10e12/L 08/27/2012 CBC 5993240 HGB 12.0 g/dL 08/27/2012 CBC 8239409 HCT DET 37.9 % 08/27/2012 CBC 7409708 MCV 83.5 fL 08/27/2012 CBC 2939907 MCH 26.4 pg 08/27/2012 CBC 2432585 MCHC 31.7 g/dL 08/27/2012 CBC 1119600 PLT 370 10e9/L 08/27/2012 CBC 8258673 MPV 10.7 fL 08/27/2012 CBC 8295970 TIM % 65.7 % 08/27/2012 CBC 2558301 LY % 19.5 % 08/27/2012 CBC 3071132 MON % 9.0 % 08/27/2012 CBC 2162009 EOS % 5.0 % 08/27/2012 CBC 2856992 BASO % 0.8 % 08/27/2012 CBC 2810868 RDW 15.4 % 08/27/2012 CBC 0687907 ABS TIM 5.12 10e9/L 08/27/2012 CBC 5093481 ABS LYMPH 1.52 10e9/L 08/27/2012 CBC 0817386 ABS MONO 0.70 10e9/L 08/27/2012 CBC 6118869 ABS EOS 0.39 10e9/L 08/27/2012 CBC 8024540 ABS BASO 0.06 10e9/L 08/27/2012 CBC 5544296 RDW-SD 46.3 fL 08/27/2012 LIPID GRP HDL TEST 41 MG/DL 08/27/2012 LIPID GRP TRIG 120 MG/DL 08/27/2012 LIPID GRP TEST LDL 67 MG/DL 08/27/2012 LIPID GRP CHOL 132 MG/DL 08/27/2012 LIPID GRP RCHOL/HDL 3.22 RATIO 08/27/2012 TSH 9412011 TSH 0.933 uIU/ML 08/27/2012 A1C HPLC 4624606 A1C HPLC 73312-8 7.3 % 08/27/2012 GFR CALC 1214950 GFR AA >60 ML/MIN 08/27/2012 GFR CALC 5522046 GFR NON-AA >60 ML/MIN 08/27/2012 DIGOXIN 9253461 DIGOXIN 1.4 NG/ML 07/15/2012 CBC 5858836 WBC 6.3 10e9/L 07/15/2012 CBC 5497132 RBC 4.44 10e12/L 07/15/2012 CBC 7578881 HGB 11.8 g/dL 07/15/2012 CBC 3887402 HCT DET 36.9 % 07/15/2012 CBC 3556614 MCV 83.1 fL 07/15/2012 CBC 7959470 MCH 26.6 pg 07/15/2012 CBC 2699876 MCHC 32.0 g/dL 07/15/2012 CBC 2047887 PLT 316 10e9/L 07/15/2012 CBC 2973695 MPV 10.3 fL 07/15/2012 CBC 3706659 TIM % 64.4 % 07/15/2012 CBC 8107370 LY % 19.6 % 07/15/2012 CBC 1943379 MON % 9.1 % 07/15/2012 CBC 0604034 EOS % 6.1 % 07/15/2012 CBC 2293310 BASO % 0.8 % 07/15/2012 CBC 6012869 RDW 15.3 % 07/15/2012 CBC 5584797 ABS TIM 4.06 10e9/L 07/15/2012 CBC 6861067 ABS LYMPH 1.23 10e9/L 07/15/2012 CBC 7399142 ABS MONO 0.57 10e9/L 07/15/2012 CBC 3502684 ABS EOS 0.38 10e9/L 07/15/2012 CBC 8422110 ABS BASO 0.05 10e9/L 07/15/2012 CBC 8120224 RDW-SD 46.2 fL 07/15/2012 CBC 7380896 WBC 6.9 10e9/L 07/04/2012 CBC 0717486 RBC 4.56 10e12/L 07/04/2012 CBC 2035499 HGB 12.2 g/dL 07/04/2012 CBC 9134952 HCT DET 38.1 % 07/04/2012 CBC 9806891 MCV 83.6 fL 07/04/2012 CBC 8888746 MCH 26.8 pg 07/04/2012 CBC 3455714 MCHC 32.0 g/dL 07/04/2012 CBC 5053671 PLT 382 10e9/L 07/04/2012 CBC 8724497 MPV 10.6 fL 07/04/2012 CBC 8812813 TIM % 58.7 % 07/04/2012 CBC 8085348 LY % 23.7 % 07/04/2012 CBC 6691534 MON % 10.2 % 07/04/2012 CBC 1144822 EOS % 6.4 % 07/04/2012 CBC 5861107 BASO % 1.0 % 07/04/2012 CBC 4417130 RDW 15.8 % 07/04/2012 CBC 3610096 ABS TIM 4.05 10e9/L 07/04/2012 CBC 9689056 ABS LYMPH 1.64 10e9/L 07/04/2012 CBC 5841944 ABS MONO 0.70 10e9/L 07/04/2012 CBC 8574538 ABS EOS 0.44 10e9/L 07/04/2012 CBC 9014101 ABS BASO 0.07 10e9/L 07/04/2012 CBC 5774128 RDW-SD 47.5 fL 07/04/2012 GFR CALC 6558091 GFR AA >60 ML/MIN 07/04/2012 GFR CALC 4747158 GFR NON-AA >60 ML/MIN 07/04/2012 BMP GLUCOSE 137 MG/DL 07/04/2012 BMP CREATININE 0.86 MG/DL 07/04/2012 BMP BUN 14 MG/DL 07/04/2012 BMP SODIUM 140 MMOL/L 07/04/2012 BMP POTASSIUM 4.5 MMOL/L 07/04/2012 BMP CHLORIDE 103 MMOL/L 07/04/2012 BMP BICARB 28 MMOL/L 07/04/2012 BMP ANION GAP 9 MEQ/L 07/04/2012 BMP CALCIUM 9.7 MG/DL 07/04/2012 DIGOXIN 2936340 DIGOXIN 1.4 NG/ML 07/04/2012 A1C HPLC 0672047 A1C HPLC 80208-8 7.1 % 03/27/2012 TSH 5080357 TSH 0.842 uIU/ML 03/26/2012 FREE T4 3688741 FREE T4 1.30 NG/DL 03/26/2012 LIPID GRP HDL TEST 40 MG/DL 03/26/2012 LIPID GRP TRIG 93 MG/DL 03/26/2012 LIPID GRP TEST LDL 62 MG/DL 03/26/2012 LIPID GRP CHOL 121 MG/DL 03/26/2012 LIPID GRP RCHOL/HDL 3.03 RATIO 03/26/2012 CHEM 14 9082721 AST 18 U/L 03/26/2012 CHEM 14 1356778 ALT 17 IU/L 03/26/2012 CHEM 14 3702203 BUN 16 MG/DL 03/26/2012 CHEM 14 8794629 ALBUMIN 4.3 GM/DL 03/26/2012 CHEM 14 8769232 CHLORIDE 103 MMOL/L 03/26/2012 CHEM 14 9296771 BILI TOT 0.9 MG/DL 03/26/2012 CHEM 14 1864611 ALK PHOS 79 U/L 03/26/2012 CHEM 14 4480229 SODIUM 140 MMOL/L 03/26/2012 CHEM 14 8558250 CREATININE 0.70 MG/DL 03/26/2012 CHEM 14 2856667 CALCIUM 9.6 MG/DL 03/26/2012 CHEM 14 8217587 POTASSIUM 4.1 MMOL/L 03/26/2012 CHEM 14 6446780 PROT TOT 6.3 GM/DL 03/26/2012 CHEM 14 5274375 GLUCOSE 142 MG/DL 03/26/2012 CHEM 14 2523498 BICARB 29 MMOL/L 03/26/2012 CHEM 14 1485620 ANION GAP 8 MEQ/L 03/26/2012 CBC 5944176 WBC 5.3 10e9/L 03/26/2012 CBC 7477911 RBC 4.70 10e12/L 03/26/2012 CBC 6517668 HGB 12.1 g/dL 03/26/2012 CBC 2762477 HCT DET 38.1 % 03/26/2012 CBC 0066540 MCV 81.1 fL 03/26/2012 CBC 0961387 MCH 25.7 pg 03/26/2012 CBC 2279621 MCHC 31.8 g/dL 03/26/2012 CBC 2621213 PLT 315 10e9/L 03/26/2012 CBC 0534326 MPV 10.9 fL 03/26/2012 CBC 1982839 TIM % 54.8 % 03/26/2012 CBC 8886410 LY % 25.8 % 03/26/2012 CBC 2090787 MON % 11.6 % 03/26/2012 CBC 0517913 EOS % 7.0 % 03/26/2012 CBC 6504053 BASO % 0.8 % 03/26/2012 CBC 6612131 RDW 16.7 % 03/26/2012 CBC 6215977 ABS TIM 2.90 10e9/L 03/26/2012 CBC 6130192 ABS LYMPH 1.37 10e9/L 03/26/2012 CBC 3336586 ABS MONO 0.61 10e9/L 03/26/2012 CBC 0837570 ABS EOS 0.37 10e9/L 03/26/2012 CBC 4009401 ABS BASO 0.04 10e9/L 03/26/2012 CBC 0355352 RDW-SD 48.8 fL 03/26/2012 GFR CALC 8887450 GFR AA >60 ML/MIN 03/26/2012 GFR CALC 0624955 GFR NON-AA >60 ML/MIN 03/26/2012 CHEM 14 8485314 AST 24 U/L 01/08/2012 CHEM 14 7666867 ALT 28 IU/L 01/08/2012 CHEM 14 [id number] BUN 15 MG/DL 01/08/2012 CHEM 14 9591319 ALBUMIN 4.3 GM/DL 01/08/2012 CHEM 14 [id number] CHLORIDE 104 MMOL/L 01/08/2012 CHEM 14 6017011 BILI TOT 0.6 MG/DL 01/08/2012 CHEM 14 1674938 ALK PHOS 83 U/L 01/08/2012 CHEM 14 7831293 SODIUM 141 MMOL/L 01/08/2012 CHEM 14 4526634 CREATININE 0.64 MG/DL 01/08/2012 CHEM 14 2382911 CALCIUM 9.4 MG/DL 01/08/2012 CHEM 14 3268967 POTASSIUM 4.0 MMOL/L 01/08/2012 CHEM 14 6431261 PROT TOT 6.7 GM/DL 01/08/2012 CHEM 14 1866115 GLUCOSE 145 MG/DL 01/08/2012 CHEM 14 4123518 BICARB 28 MMOL/L 01/08/2012 CHEM 14 6924175 ANION GAP 9 MEQ/L 01/08/2012 CBC 6057276 WBC 5.8 10e9/L 01/08/2012 CBC 1040729 RBC 4.36 10e12/L 01/08/2012 CBC 3463655 HGB 11.6 g/dL 01/08/2012 CBC 8770140 HCT DET 37.4 % 01/08/2012 CBC 6197905 MCV 85.8 fL 01/08/2012 CBC 9554595 MCH 26.6 pg 01/08/2012 CBC 8572977 MCHC 31.0 g/dL 01/08/2012 CBC 7620202 PLT 319 10e9/L 01/08/2012 CBC 2567053 MPV 10.5 fL 01/08/2012 CBC 1328220 TIM % 62.2 % 01/08/2012 CBC 0638027 LY % 20.7 % 01/08/2012 CBC 3909284 MON % 9.3 % 01/08/2012 CBC 3989593 EOS % 6.4 % 01/08/2012 CBC 2906047 BASO % 1.4 % 01/08/2012 CBC 9773537 RDW 14.9 % 01/08/2012 CBC 4479342 ABS TIM 3.61 10e9/L 01/08/2012 CBC 8440913 ABS LYMPH 1.20 10e9/L 01/08/2012 CBC 5652096 ABS MONO 0.54 10e9/L 01/08/2012 CBC 4243367 ABS EOS 0.37 10e9/L 01/08/2012 CBC 4159887 ABS BASO 0.08 10e9/L 01/08/2012 CBC 1490019 RDW-SD 44.9 fL 01/08/2012 GFR CALC 5705825 GFR AA >60 ML/MIN 01/08/2012 GFR CALC 5461385 GFR NON-AA >60 ML/MIN 01/08/2012 A1C HPLC 1221437 A1C HPLC 43620-3 7.2 % 01/08/2012 LIPID GRP HDL TEST 42 MG/DL 01/08/2012 LIPID GRP 6891636 TRIG 105 MG/DL 01/08/2012 LIPID GRP TEST [...] - General 1995 Ears/Nose/Throat oral cavity/pharynx/larynx Overall: no masses 10/11/2011 [...] Codes Date URINALYSIS NONAUTO W/O SCOPE CPT-4: 03211 12/31/2017 OCCULT BLOOD FECES CPT- 4: 39657 11/28/2017 TRIAMCINOLONE ACET INJ NOS CPT-4: J3301 10/30/2017 REMOVAL OF IMPACTED WAX CPT-4: G0268 05/29/2017 THER/PROPH/DIAG INJ SC/IM CPT-4: 71141 05/14/2017 KETOROLAC TROMETHAMINE INJ CPT-4: J1885 05/14/2017 ADMIN INFLUENZA VIRUS VAC CPT-4: G0008 04/30/2017 FLU VACC PRSV FREE INC ANTIG CPT-4: 79577 04/30/2017 THER/PROPH/DIAG INJ SC/IM CPT-4: 28155 03/06/2017 TRIAMCINOLONE ACET INJ NOS CPT-4: J3301 03/06/2017 THER/PROPH/DIAG INJ SC/IM CPT-4: 81470 09/04/2016 TRIAMCINOLONE ACET INJ NOS CPT-4: J3301 09/04/2016 THER/PROPH/DIAG INJ SC/IM CPT-4: 91460 11/11/2015 TRIAMCINOLONE ACET INJ NOS CPT-4: J3301 11/11/2015 TRIAMCINOLONE ACET INJ NOS CPT-4: J3301 10/25/2015 THER/PROPH/DIAG INJ SC/IM CPT-4: 59685 10/25/2015 THER/PROPH/DIAG INJ SC/IM CPT-4: 73285 08/17/2014 TRIAMCINOLONE ACET INJ NOS CPT-4: J3301 08/17/2014 TRIAMCINOLONE ACET INJ NOS CPT-4: J3301 04/13/2014 THER/PROPH/DIAG INJ SC/IM CPT-4: 95883 04/13/2014 ROUTINE VENIPUNCTURE CPT- 4: 76178 11/04/2013 ROUTINE VENIPUNCTURE CPT- 4: 98524 05/12/2013 ADMIN INFLUENZA VIRUS VAC CPT-4: G0008 05/12/2013 FLULAVAL VACC, 3 YRS & >, IM CPT-4: Q2036 05/12/2013 TRIAMCINOLONE ACET INJ NOS CPT-4: J3301 10/07/2012 THER/PROPH/DIAG INJ SC/IM CPT-4: 21471 10/07/2012 ROUTINE VENIPUNCTURE CPT- 4: 44115 08/27/2012 ROUTINE VENIPUNCTURE CPT- 4: 07115 07/15/2012 ROUTINE VENIPUNCTURE CPT- 4: 90817 03/26/2012 ADMIN INFLUENZA VIRUS VAC CPT-4: G0008 03/26/2012 FLULAVAL VACC, 3 YRS & >, IM CPT-4: Q2036 03/26/2012 Pneumococcal Polysaccharide Vaccine, 23-Valent, Ad CPT-4: 58527 03/26/2012 ROUTINE VENIPUNCTURE CPT- 4: 70903 01/08/2012 ROUTINE VENIPUNCTURE CPT- 4: 58118 11/06/2011 ROUTINE VENIPUNCTURE CPT- 4: 88042 10/25/2011 ROUTINE VENIPUNCTURE CPT- 4: 09600 10/16/2011 ROUTINE VENIPUNCTURE CPT- 4: 51151 09/25/2011 INJ TRIGGER POINT 1/2 MUSCL CPT-4: 59374 07/31/2011 TRIAMCINOLONE ACET INJ NOS CPT-4: J3301 07/31/2011 PRESCRIP TRANSMIT VIA ERX SY CPT-4: G8553 05/22/2011 ADMIN INFLUENZA VIRUS VAC CPT-4: G0008 05/02/2011 FLULAVAL VACC, 3 YRS & >, IM CPT-4: Q2036 05/02/2011 ROUTINE VENIPUNCTURE CPT- 4: 24943 05/02/2011 Vital Signs Date Vital 05/27/2018 Blood Pressure 1: 128/76 Code: 8480-6 BMI: 28.9 Code: 17675-1 Heart Rate 1: 74 bpm Height: 5'1" SpO2: 99% Weight: 153 lbs 01/21/2018 Blood Pressure 1: 132/78 Code: 8480-6 BMI: 28.7 Code: 53892-0 Heart Rate 1: 112 bpm Height: 5'1" SpO2: 98% Weight: 152 lbs 12/04/2017 Blood Pressure 1: 140/74 Code: 8480-6 BMI: 27.6 Code: 32216-9 Heart Rate 1: 76 bpm Height: 5'1" SpO2: 97% Weight: 146 lbs 11/13/2017 Blood Pressure 1: 166/78 Code: 8480-6 BMI: 27.4 Code: 70291-9 Heart Rate 1: 78 bpm Height: 5'1" SpO2: 98% Weight: 145 lbs 10/30/2017 Blood Pressure 1: 148/72 Code: 8480-6 BMI: 27.8 Code: 35563-6 Heart Rate 1: 92 bpm Height: 5'1" SpO2: 96% Weight: 147 lbs 09/20/2017 Blood Pressure 1: 146/68 Code: 8480-6 BMI: 28.2 Code: 33884-5 Heart Rate 1: 66 bpm Height: 5'1" SpO2: 99% Weight: 149 lbs 05/29/2017 Blood Pressure 1: 156/82 Code: 8480-6 BMI: 28.7 Code: 15602-1 Heart Rate 1: 71 bpm Height: 5'1" SpO2: 96% Weight: 152 lbs 05/14/2017 Blood Pressure 1: 150/88 Code: 8480-6 BMI: 28.5 Code: 71385-8 Heart Rate 1: 71 bpm Height: 5'1" SpO2: 98% Weight: 151 lbs 03/06/2017 Blood Pressure 1: 148/66 Code: 8480-6 BMI: 28.5 Code: 39721-0 Heart Rate 1: 78 bpm Height: 5'1" SpO2: 98% Weight: 151 lbs 11/01/2016 Blood Pressure 1: 150/84 Code: 8480-6 BMI: 29.1 Code: 94044-7 Heart Rate 1: 71 bpm Height: 5'1" SpO2: 97% Weight: 154 lbs 10/18/2016 Blood Pressure 1: 156/98 Code: 8480-6 Heart Rate 1: 68 bpm Height: 5'1" SpO2: 98% Weight: 10/12/2016 Blood Pressure 1: 142/76 Code: 8480-6 BMI: 30.0 Code: 96383-0 Heart Rate 1: 76 bpm Height: 5'1" SpO2: 95% Weight: 159 lbs 09/04/2016 Blood Pressure 1: 120/70 Code: 8480-6 Blood Pressure 1: 148/84 Code: 8480-6 BMI: 30.0 Code: 26427-0 Heart Rate 1: 72 bpm Height: 5'1" SpO2: 94% Weight: 159 lbs 05/30/2016 Blood Pressure 1: 152/84 Code: 8480-6 BMI: 29.9 Code: 73076-1 Heart Rate 1: 76 bpm Height: 5'1" SpO2: 97% Weight: 158 lbs 8 oz 05/01/2016 Blood Pressure 1: 146/60 Code: 8480-6 BMI: 29.9 Code: 96836-2 Heart Rate 1: 72 bpm Height: 5'1" SpO2: 97% Weight: 158 lbs 02/29/2016 Blood Pressure 1: 152/82 Code: 8480-6 BMI: 30.4 Code: 69570-1 Heart Rate 1: 71 bpm Height: 5'1" SpO2: 96% Weight: 161 lbs 02/03/2016 Blood Pressure 1: 148/88 Code: 8480-6 BMI: 30.6 Code: 88357-0 Heart Rate 1: 72 bpm Height: 5'1" SpO2: 98% Weight: 162 lbs 12/21/2015 Blood Pressure 1: 180/78 Code: 8480-6 BMI: 30.9 Code: 62830-5 Heart Rate 1: 64 bpm Height: 5'1" SpO2: 97% Weight: 163 lbs 8 oz 10/25/2015 Blood Pressure 1: 150/78 Code: 8480-6 BMI: 31.0 Code: 62497-5 Heart Rate 1: 73 bpm Height: 5'1" SpO2: 98% Weight: 164 lbs 10/19/2015 Blood Pressure 1: 122/72 Code: 8480-6 BMI: 31.6 Code: 70966-7 Heart Rate 1: 88 bpm Height: 5'1" SpO2: 98% Weight: 167 lbs 06/22/2015 Blood Pressure 1: 150/82 Code: 8480-6 BMI: 31.4 Code: 19264-3 Heart Rate 1: 86 bpm Height: 5'1" SpO2: 96% Weight: 166 lbs 12/22/2014 Blood Pressure 1: 160/92 Code: 8480-6 BMI: 31.2 Code: 52393-0 Heart Rate 1: 85 bpm Height: 5'1" SpO2: 97% Weight: 165 lbs 08/17/2014 Blood Pressure 1: 138/80 Code: 8480-6 BMI: 31.6 Code: 18858-6 Heart Rate 1: 77 bpm Height: 5'1" SpO2: 97% Weight: 167 lbs 04/13/2014 Blood Pressure 1: 144/88 Code: 8480-6 BMI: 31.6 Code: 43743-5 Heart Rate 1: 90 bpm Height: 5'1" Weight: 167 lbs 12/11/2013 Blood Pressure 1: 168/90 Code: 8480-6 BMI: 32.3 Code: 52161-5 Heart Rate 1: 72 bpm Height: 5'1" Weight: 171 lbs 11/10/2013 Blood Pressure 1: 150/80 Code: 8480-6 BMI: 32.3 Code: 61702-1 Heart Rate 1: 76 bpm Height: 5'1" Weight: 171 lbs 08/11/2013 Blood Pressure 1: 152/80 Code: 8480-6 BMI: 32.5 Code: 07689-3 Heart Rate 1: 92 bpm Height: 5'1" Temperature: 36.7 (C) / 98.0 (F) Weight: 172 lbs 05/12/2013 Blood Pressure 1: 142/102 Code: 8480-6 Blood Pressure 2: 144/98 Code: 8480-6 BMI: 34.2 Code: 80688-3 Heart Rate 1: 80 bpm Height: 5'1" Weight: 181 lbs 01/06/2013 Blood Pressure 1: 138/76 Code: 8480-6 BMI: 34.6 Code: 18266-5 Heart Rate 1: 64 bpm Height: 5'1" Weight: 183 lbs 10/07/2012 Blood Pressure 1: 146/76 Code: 8480-6 BMI: 35.6 Code: 45944-8 Heart Rate 1: 76 bpm Height: 5'1" Respiratory Rate: 20 bpm Weight: 188 lbs 8 oz 09/11/2012 Blood Pressure 1: 158/92 Code: 8480-6 BMI: 35.7 Code: 99038-7 Heart Rate 1: 76 bpm Height: 5'1" Weight: 189 lbs 07/15/2012 Blood Pressure 1: 158/100 Code: 8480-6 BMI: 36.3 Code: 88771-5 Heart Rate 1: 72 bpm Height: 5'1" Respiratory Rate: 20 bpm Weight: 192 lbs 05/02/2012 Blood Pressure 1: 156/80 Code: 8480-6 BMI: 35.9 Code: 97108-0 Heart Rate 1: 72 bpm Height: 5'1" Weight: 190 lbs 03/28/2012 Blood Pressure 1: 133/88 Code: 8480-6 Heart Rate 1: 78 bpm Weight: 189 lbs 11/27/2011 Blood Pressure 1: 178/80 Code: 8480-6 BMI: 36.7 Code: 32490-3 Heart Rate 1: 72 bpm Height: 5'1" Respiratory Rate: 20 bpm Weight: 194 lbs 10/25/2011 Blood Pressure 1: 122/62 Code: 8480-6 BMI: 37.0 Code: 47745-3 Heart Rate 1: 80 bpm Height: 5'1" [...] 2: / Code: 8480-6 BMI: 37.1 Code: 69653-0 Heart Rate 1: 72 bpm Height: 5'1" Respiratory Rate: 16 bpm SpO2: % Temperature: .0 (C) / 32.0 (F) Weight: 196 lbs 8 oz 05/22/2011 Blood Pressure 1: 147/71 Code: 8480-6 BMI: 18.7 Code: 85791-9 Heart Rate 1: 77 bpm Height: 7'1" Weight: 192 lbs 05/05/2011 Blood Pressure 1: 178/88 Code: 8480-6 BMI: 37.4 Code: 66935-0 Heart Rate 1: 80 bpm Height: 5' [...] Present Encounters Encounter Performer Location Codes Date ([id number]) 98061 EST. PATIENT, LEVEL IV Diagnosis: Type 2 diabetes mellitus with hyperglycemia[ICD10: E11.65] Diagnosis: Atrophy of thyroid (acquired)[ICD10: E03.4] Clarice lEaine MD, [facility] CPT-4: 46504 05/27/2018 [id number]) 07123 EST. PATIENT, LEVEL IV Diagnosis: Type 2 diabetes mellitus without complications[ICD10: E11.9] Diagnosis: Paroxysmal atrial fibrillation[ICD10: I48.0] Diagnosis: Essential (primary) hypertension[ICD10: I10] Clarice Elaine MD, [facility] CPT-4: 72734 01/21/2018 [id number]) 38517 EST. PATIENT, LEVEL III Diagnosis: Paroxysmal atrial fibrillation[ICD10: I48.0] Diagnosis: Other specified anemias[ICD10: D64.89] Clarice Elaine MD, [facility] CPT-4: 97635 12/04/2017 [id number]) 52168 EST. PATIENT, LEVEL IV Diagnosis: Benign paroxysmal vertigo, bilateral[ICD10: H81.13] Diagnosis: Essential (primary) hypertension[ICD10: I10] Diagnosis: Other fatigue[ICD10: R53.83] Diagnosis: Other specified anemias[ICD10: D64.89] Diagnosis: Other allergic rhinitis[ICD10: J30.89] Socorro Elaine MD, [facility] CPT-4: 07035 11/13/2017 [id number]) 63548 EST. PATIENT, LEVEL III Diagnosis: Mild intermittent asthma with (acute) exacerbation[ICD10: J45.21] Diagnosis: Cough[ICD10: R05] Socorro Elaine MD [facility] CPT-4: 49594 10/30/2017 ([id number]) 36221 EST. PATIENT, LEVEL IV Diagnosis: Gastro-esophageal reflux disease without esophagitis[ICD10: K21.9] Diagnosis: Type 2 diabetes mellitus without complications[ICD10: E11.9] Diagnosis: Other specified anemias[ICD10: D64.89] Diagnosis: Paroxysmal atrial fibrillation[ICD10: I48.0] Socorro Elaine MD [facility] CPT-4: 33312 09/20/2017 ([id number]) 89410 EST. PATIENT, LEVEL III Diagnosis: Essential (primary) hypertension[ICD10: I10] Clarice Elaine MD [facility] CPT-4: 36329 05/29/2017 ([id number]) 79835 EST. PATIENT, LEVEL III Diagnosis: Acute bronchitis due to other specified organisms[ICD10: J20.8] Diagnosis: Cough[ICD10: R05] Diagnosis: Other chest pain[ICD10: R07.89] Clarice Elaine MD [facility] CPT-4: 17364 05/14/2017 ([id number]) 45729 EST. PATIENT, LEVEL IV Diagnosis: Type 2 diabetes mellitus with hyperglycemia[ICD10: E11.65] Diagnosis: Essential (primary) hypertension[ICD10: I10] Diagnosis: Mild intermittent asthma with (acute) exacerbation[ICD10: J45.21] Clarice Elaine MD [facility] CPT-4: 48262 03/06/2017 ([id number]) 32762 EST. 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 PATIENT, LEVEL III Diagnosis: Mild intermittent asthma with (acute) exacerbation[ICD10: J45.21] Diagnosis: Gastro-esophageal reflux disease without esophagitis[ICD10: K21.9] Jayne Elaine MD [facility] CPT-4: 52047 10/12/2016 ([id number]) 92836 EST. PATIENT, LEVEL IV Diagnosis: Type 2 diabetes mellitus with hyperglycemia[ICD10: E11.65] Diagnosis: Essential (primary) hypertension[ICD10: I10] Diagnosis: Mild intermittent asthma with (acute) exacerbation[ICD10: J45.21] Clarice Elaine MD, [facility] CPT-4: 11543 09/04/2016 05367 EST. PATIENT, LEVEL III Diagnosis: Pain in left ankle and joints of left foot[ICD10: M25.572] Diagnosis: Localized edema[ICD10: R60.0] Jayne Elaine MD, [facility] CPT-4: 77571 05/30/2016 ([id number]) 08427 EST. PATIENT, LEVEL III Diagnosis: Type 2 diabetes mellitus with hyperglycemia[ICD10: E11.65] Clarice Elaine MD [facility] CPT-4: 23514 05/01/2016 ([id number]) 80464 EST. PATIENT, LEVEL IV Diagnosis: Type 2 diabetes mellitus without complications[ICD10: E11.9] Diagnosis: Moderate persistent asthma, uncomplicated[ICD10: J45.40] Diagnosis: Paroxysmal atrial fibrillation[ICD10: I48.0] Clarice Elaine MD, [facility] CPT-4: 43734 02/29/2016 ([id number]) 30682 EST. PATIENT, LEVEL IV Diagnosis: Paroxysmal atrial fibrillation[ICD10: I48.0] Diagnosis: Hypothyroidism, unspecified[ICD10: E03.9] Diagnosis: Type 2 diabetes mellitus without complications[ICD10: E11.9] Diagnosis: Essential (primary) hypertension[ICD10: I10] Diagnosis: Acute maxillary sinusitis, unspecified[ICD10: J01.00] Diagnosis: Moderate persistent asthma, uncomplicated[ICD10: J45.40] Clarice Elaine MD, [facility] CPT-4: 81939 02/03/2016 ([id number]) 47686 EST. PATIENT, LEVEL IV Diagnosis: Type 2 diabetes mellitus without complications[ICD10: E11.9] Diagnosis: Hypothyroidism, unspecified[ICD10: E03.9] Diagnosis: Moderate persistent asthma, uncomplicated[ICD10: J45.40] Diagnosis: Essential (primary) hypertension[ICD10: I10] Clarice Elaine MD, [facility] CPT-4: 54808 12/21/2015 ([id number]) 92013 EST. 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 PATIENT, LEVEL IV Diagnosis: Type 2 diabetes mellitus without complications[ICD10: E11.9] Diagnosis: Essential (primary) hypertension[ICD10: I10] Diagnosis: Hypothyroidism, unspecified[ICD10: E03.9] Clarice Elaine MD, [facility] CPT-4: 79203 06/22/2015 ([id number]) 63169 EST. PATIENT, LEVEL IV Diagnosis: ESSENTIAL HYPERTENSION[ICD9: 401.9] Diagnosis: DIABETES TYPE II[ICD9: 250.00] Clarice Elaine MD [facility] CPT-4: 74683 12/22/2014 ([id number]) 19180 EST. PATIENT, LEVEL IV Diagnosis: ACUTE BRONCHITIS[ICD9: 466.0] Diagnosis: Acute asthma exacerbation[ICD9: 493.92] Diagnosis: ESSENTIAL HYPERTENSION[ICD9: 401.9] Diagnosis: DIABETES TYPE II[ICD9: 250.00] Clarice Elaine MD, [facility] CPT-4: 23542 08/17/2014 ([id number]) 54357 EST. PATIENT, LEVEL IV Diagnosis: DIABETES TYPE II[ICD9: 250.00] Diagnosis: ESSENTIAL HYPERTENSION[ICD9: 401.9] Diagnosis: Acute asthma exacerbation[ICD9: 493.92] Clarice Elaine MD [facility] CPT-4: 07210 04/13/2014 ([id number]) 30498 EST. PATIENT, LEVEL IV Diagnosis: DIABETES TYPE II[ICD9: 250.00] Diagnosis: ESSENTIAL HYPERTENSION[ICD9: 401.9] Diagnosis: HYPOTHYROIDISM[ICD9: 244.9] Clarice Elaine MD [facility] CPT-4: 34873 12/11/2013 ([id number]) 90494 EST. PATIENT, LEVEL IV Diagnosis: DM W/O COMPLICATION TYPE II, UNCONTROLLED[ICD9: 250.02] Diagnosis: ESSENTIAL HYPERTENSION[ICD9: 401.9] Clarice Elaine MD [facility] CPT- 4: 61205 11/10/2013 ([id number]) 66207 EST. PATIENT, LEVEL IV Diagnosis: DM W/O COMPLICATION TYPE II, UNCONTROLLED[SNOMED: 49881375] Diagnosis: ESSENTIAL HYPERTENSION[SNOMED: 55251196] Diagnosis: ACUTE BRONCHITIS[ICD9: 466.0] Clarice Elaine MD [facility] CPT-4: 68010 08/11/2013 ([id number]) 33855 EST. PATIENT, LEVEL IV Diagnosis: DM W/O COMPLICATION TYPE II, UNCONTROLLED[SNOMED: 79631086] Diagnosis: ATRIAL FIBRILLATION[ICD9: 427.31] Diagnosis: ESSENTIAL HYPERTENSION[SNOMED: 57232025] Clarice Eliane MD [facility] CPT-4: 26891 05/12/2013 ([id number]) 93340 EST. PATIENT, LEVEL IV Diagnosis: DM W/O COMPLICATION TYPE II, UNCONTROLLED[SNOMED: 76029116] Diagnosis: ESSENTIAL HYPERTENSION[SNOMED: 75595004] Clarice Elaine MD [facility] CPT-4: 47562 01/06/2013 ([id number]) 53150 EST. PATIENT, LEVEL IV Diagnosis: DIABETES TYPE II[SNOMED: 371661817] Diagnosis: ESSENTIAL HYPERTENSION[SNOMED: 83194013] Diagnosis: Acute asthma exacerbation[ICD9: 493.92] Diagnosis: Fatigue[ICD9: 780.79] Clarice Elaine MD [facility] CPT-4: 17257 10/07/2012 ([id number]) 77419 EST. PATIENT, LEVEL IV Diagnosis: DM W/O COMPLICATION TYPE II, UNCONTROLLED[SNOMED: 85425226] Diagnosis: Lump of breast, right[ICD9: 611.72] Diagnosis: Lump on neck[ICD9: 784.2] Clarice Elaine MD [facility] CPT-4: 53315 09/11/2012 ([id number]) 77470 EST. PATIENT, LEVEL IV Diagnosis: ESSENTIAL HYPERTENSION[SNOMED: 25093913] Diagnosis: Atrial fibrillation[ICD9: 427.31] Diagnosis: Fatigue[ICD9: 780.79] Diagnosis: Encounter for monitoring digoxin therapy[ICD9: V58.83] Clarice Elaine MD [facility] CPT-4: 36092 07/15/2012 ([id number]) 25966 EST. PATIENT, LEVEL IV Diagnosis: DIABETES TYPE II[SNOMED: 901108480] Diagnosis: ESSENTIAL HYPERTENSION[SNOMED: 48581996] Clarice Elaine MD [facility] CPT-4: 25245 05/02/2012 ([id number]) 38517 EST. PATIENT, LEVEL IV Diagnosis: DM W/O COMPLICATION TYPE II, UNCONTROLLED[SNOMED: 27297190] Diagnosis: ESSENTIAL HYPERTENSION[SNOMED: 52653017] Diagnosis: HYPERLIPIDEMIA[ICD9: 272.4] Clarice Elaine MD [facility] CPT-4: 18149 03/28/2012 ([id number]) 03025 EST. PATIENT, LEVEL IV Diagnosis: DM W/O COMPLICATION TYPE II, UNCONTROLLED[SNOMED: 28884811] Diagnosis: ESSENTIAL HYPERTENSION[SNOMED: 13997275] Clarice Elaine MD [facility] CPT-4: 99019 11/27/2011 [id number]) 02800 EST. PATIENT, LEVEL III Diagnosis: ESSENTIAL HYPERTENSION[SNOMED: 32838803] Diagnosis: ANEMIA[ICD9: 285.9] Diagnosis: Gastritis[ICD9: 535.50] Clarice Elaine MD, [facility] CPT-4: 86343 10/25/2011 ([id number] 89315 EST. PATIENT, LEVEL III Diagnosis: Anemia associated with acute blood loss[ICD9: 285.1] Diagnosis: Gastritis, acute with hemorrhage[ICD9: 535.01] Clarice Elaine MD, [facility] CPT-4: 72686 10/11/2011 ([id number]) 47474 EST. PATIENT, LEVEL IV Diagnosis: Hematochezia[ICD9: 578.1] Diagnosis: ENCNTR LONG-RX USE NEC[ICD9: V58.69] Diagnosis: Abdominal pain[ICD9: 789.00] Clarice Elaine MD, [facility] CPT-4: 91871 10/04/2011 ([id number]) 58985 EST. PATIENT, LEVEL IV Diagnosis: DIABETES TYPE II[SNOMED: 402127756] Diagnosis: ESSENTIAL HYPERTENSION[SNOMED: 91492561] Diagnosis: Coronary artery disease[ICD9: 414.00] Clarice Elaine MD, [facility] CPT-4: 25548 09/25/2011 ([id number]) 15689 EST. PATIENT, LEVEL IV Diagnosis: Muscle spasm[ICD9: 728.85] Diagnosis: Arthralgia[ICD9: 719.40] Diagnosis: ESSENTIAL HYPERTENSION[SNOMED: 04181569] Clarice Elaine MD, [facility] CPT-4: 26518 07/31/2011 69960 EST. PATIENT, LEVEL III Diagnosis: ACUTE SINUSITIS[ICD9: 461.9] Diagnosis: Cervicalgia[ICD9: 723.1] Socorro Elaine MD, [facility] CPT-4: 26584 05/22/2011 63545 EST. PATIENT, LEVEL IV Diagnosis: HYPERLIPIDEMIA[ICD9: 272.4] Diagnosis: HYPOTHYROIDISM[ICD9: 244.9] Diagnosis: DM W/O COMPLICATION TYPE II, UNCONTROLLED[SNOMED: 78075656] Clarice Elaine MD, [facility] CPT-4: 90332 05/05/2011 Plan of Care Planned Activity Notes [...] control. 05/27/2018 [facility]ment[facility] [phone] [phone] ([facility] Moderate 05/27/2018 Patient Education: [...] uncontrolled. 01/21/2018 App[facility]ment[facility] [phone] [phone] ([facility] min) Moderate 01/21/2018 Patient Education: [...] venofer IV. 12/04/2017 App[facility]ment: [facility] [phone] [phone] [place] (15 min) Moderate 12/04/2017 Patient Education: [...] instructions/medication interventions. HTN- elevated today-monitor at home Nlwuch-zfccwja-derqt labs Allergies-add flonase nasal spray 11/13/2017 Visit Plan: BPPV - Benign Paroxysmal Positional Vertigo - discussed diagnosis with the patient, offered the pt the appropriate additional information in hand-out. Pt instructed in home exercises to help alleviate and prevent future recurrent episodes of vertigo. Pt informed that if symptoms worsen, call the office for further instructions/medication interventions. HTN- elevated today-monitor at home Fxifoe-xfafvlz-ecklt labs Allergies-add flonase nasal spray 11/13/2017 Appointment: [facility] Salmeron [facility] [phone] [phone] (30 min) Complex 11/13/2017 Patient Education: Patient [...] acute changes. 10/30/2017 Appointment: Socorro Salmeron WPtel: [address] [place], [place] [phone] (30 min) Complex 10/30/2017 Patient Education: Patient Medication Summary Completed 10/30/2017 Appointment: Clarice Elaine WPtel: [facility] [id number] (15 min) Moderate 09/25/2017 Visit Plan: GERD-continue [...] Hgb A1C 09/20/2017 Appointment: Socorro Salmeron WPtel: [address] [place], [place] [phone] (30 min) Complex 09/20/2017 Patient Education: Patient Medication Summary Completed 09/20/2017 Appointment: Clarice Elaine WPtel: [address] [place], [place] [phone] (15 min) Moderate 06/26/2017 Visit Plan: Hypertension [...] removal process. 05/29/2017 Appointment: [phone] [id number] ([facility] min) Moderate 05/29/2017 Patient Education: Patient Medication Summary Completed 05/29/2017 Patient Education: Hypertension Completed 05/29/2017 Visit Plan: Bronchitis - acute case of bronchitis identified. Pt has been given antibiotics, breathing treatments as appropriate, and pt has been instructed to call if symptoms are not improved, or if symptoms acutely worsen. Chest pain - chest wall - toradol shot [facility] [id number] november 2018 05/14/2017 Visit Plan: Bronchitis - acute case of bronchitis identified. Pt has been given antibiotics, breathing treatments as appropriate, and pt has been instructed to call if symptoms are not improved, or if symptoms acutely worsen. Chest pain - chest wall - toradol shot [facility] [id number] november 2018 05/14/2017 Appointment: Clar[facility] Elaine [facility]el[facility] [phone] [id number] (15 min) Moderate 05/14/2017 Patient Education: [...] today. 03/06/2017 Appointment: Clarice Elaine WPtel: [phone] [id number] (15 min) Moderate 03/06/2017 Patient Education: Patient Medication Summary Completed 03/06/2017 Patient Education: Hypertension Completed 03/06/2017 Appointment: Clarice Elaine WPtel: [phone] [id number] [place] (15 min) Moderate 12/05/2016 Visit Plan: Hypertension [...] treatment. 11/01/2016 Appointment: Clarice Elaine WPtel: [phone] [id number] [place] (15 min) Moderate 11/01/2016 Patient Education: [...] ILLNESS. 10/18/2016 Appointment: [phone] [id number] [place] (15 min) Moderate 10/18/2016 Patient [...] acute changes 10/12/2016 Appointment: Jayne Ragland WPtel: [phone] [facility] (30 min) Complex 10/12/2016 Patient Education: Patient [...] at home. 09/04/2016 Appointment: Clarice Elaine WPtel: [phone] [facility] (15 min) Moderate 09/04/2016 Patient Education: Patient Medication Summary Completed 09/04/2016 Patient Education: Obesity Completed 09/04/2016 Patient Education: Hypertension Completed 09/04/2016 Appointment: Jayne Ragland [facility]el[phone] [facility] - Annual Wellness Visit 06/08/2016 Visit [...] glucose control. 05/01/2016 Appointment: Clarice Elaine WPtel: [phone] [facility] (15 min) Moderate 05/01/2016 Patient Education: Patient [...] acute changes 02/29/2016 App[facility]ment: [phone] [facility] 02/29/2016 Patient Education: Patient [...] readings. 12/21/2015 Appointment: [phone] (15 min) Moderate 12/21/2015 Patient Education: [...] patient is stable, monitor for acute changes. cachorro shot today 10/25/2015 Appointment: [phone] (15 min) Moderate 10/25/2015 Patient Education: [...] ACUTE ILLNESS. 10/19/2015 Appointment: Socorro Salmeron WPtel: [id number] (30 min) Complex 10/19/2015 Patient Education: Patient [...] at home. 08/17/2014 Appointment: Clarice Elaine WPtel: [address] [place], [place] [id number] Follow up 08/17/2014 Patient Education: Patient Medication [...] albuterol. 04/13/2014 Appointment: Clarice Elaine WPtel: [phone] [facility] Follow up 04/13/2014 Patient Education: Patient Medication [...] of control. 12/11/2013 Appointment: Clar[phone] Follow [facility] 12/11/2013 Patient Education: Patient [...] concerns. 11/10/2013 Appointment: Clar[phone] [place] Follow up 11/10/2013 Patient Education: Patient Medication Summary Completed 11/10/2013 Patient Education: Hypertension Completed 11/10/2013 Appointment: Clar[phone] [place] Lab Draw 11/04/2013 Patient Education: [...] pharmacy. 08/11/2013 Appointment: Clar[phone] [facility] 08/11/2013 Patient Education: Patient [...] today 05/12/2013 Appointment: Clar[phone] [facility] 05/12/2013 Patient Education: Patient [...] greater blood glucose control. 01/06/2013 Appointment: Clarice El[facility]etel[phone] [facility] 01/06/2013 Patient Education: Patient Medication [...] shot today. 10/07/2012 Appointment: Clar[phone] [facility] 10/07/2012 Patient Education: Patient [...] and ultrasound 09/11/2012 Appointment: Clar[phone] [facility] 09/11/2012 Patient Education: Patient [...] level. 07/15/2012 Appointment: Clar[facility]Ptel[phone] Follow [facility] 07/15/2012 Patient Education: Patient [...] Plavix. 05/02/2012 Appointment: Clar[phone] Follow [facility] 05/02/2012 Patient Education: Patient [...] COMPELTELY. 03/28/2012 Appointment: Clarice Elaine [facility]Ptel[phone] [place] Follow up 03/28/2012 Patient Education: [...] at home. 11/27/2011 Appointment: Clarice Elaine WPtel: [facility] Follow up 11/27/2011 Patient Education: Patient Medication Summary Completed 11/27/2011 Patient Education: High Blood Pressure: Essential Hypertension Completed 11/27/2011 Patient Education: Patient Medication Summary Completed 11/06/2011 Appointment: Clarice Elaine WPtel: [address] [place], [place] [phone] Other 11/03/2011 Appointment: Clarice Elaine WPtel: [facility] Other 11/02/2011 Appointment: Clarice Elaine WPtel: [address] [place], [place] [phone] Lab Draw 10/31/2011 Visit Plan: Hypertension - [...] times daily. 10/25/2011 Appointment: Clarice Elaine WPtel: [facility] [place] Follow up 10/25/2011 Patient Education: Patient Medication Summary Completed 10/25/2011 Patient Education: High Blood Pressure: Essential Hypertension Completed 10/25/2011 Appointment: Clarice Elaine WPtel: [address] [place], [place] [phone] Lab Draw 10/16/2011 Patient Education: Patient Medication [...] to 11.4 10/11/2011 Appointment: Clarice Elaine WPtel: [facility] [place] Other 10/11/2011 Patient Education: Patient Medication Summary Completed 10/11/2011 Appointment: Clarice Elaine WPtel: [address] [place], [place] [phone] Other 10/10/2011 Visit Plan: Abdominal pain and [...] remained stable. 10/04/2011 Appointment: Clarice Elaine WPtel: [facility] [place] Follow up 10/04/2011 Patient Education: Patient [...] not improve. 09/25/2011 Appointment: Clarice Elaine WPtel: [facility] [address] Other 09/25/2011 Patient Education: Patient Medication Summary [...] not improve. 07/31/2011 Appointment: Clarice Elaine WPtel: [facility] [place] Other 07/31/2011 Patient Education: Patient Medication [...] on use. 05/22/2011 Appointment: Socorro Salmeron WPtel: [phone] [facility] Other 05/22/2011 Patient Education: Patient Medication Summary [...] increased. 05/05/2011 Appointment: Clarice Elaine WPtel: [phone] [facility] [place] Other 05/05/2011 Patient Education: Patient Medication Summary Completed 05/05/2011 Patient Education: High Cholesterol Completed 05/05/2011 Appointment: Clarice Elaine WPtel: [phone] [facility] Other 05/04/2011 Appointment: Clarice Elaine WPtel: [address] [place], [place] [phone] [place] Lab Draw 05/02/2011 Patient Education: Patient [...] further instructions/medication interventions. HTN-elevated today-monitor at home Etvgbs-wglcrnc-oqqzl labs Allergies-add flonase nasal spray CHECK LABS [...] further instructions/medication interventions. HTN-elevated today-monitor at home Oodspq-xkyosrz-grqeh labs Allergies-add flonase nasal spray . Hypertension [...] - look at the organic section at [facility] or in [employer] at the peanut butter [...] pain - chest wall - toradol shot [facility] [id number] no[facility] 2018 . Bronchitis - acute case of bronchitis identified. Pt has been given antibiotics, breathing treatments as appropriate, and pt has been instructed to call if symptoms are not improved, or if symptoms acutely worsen. Chest pain - chest wall - toradol shot [facility] [id number] november 2018 . Asthma Exacerbation - Asthma [...]
--- OUTSIDE RECORDS SUMMARY | 2018-12-28 04:57 | XMS REPORT | CCD ---
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 Unknown Has never used illegal drugs 05/05/2011 Allergies, Adverse Reactions, Alerts Substance Reaction Codes Entered Date Inactivated Date Status noroxin RxNorm: 7517 05/05/2011 No Inactive Date Active trovan RxNorm: 839693 05/05/2011 No Inactive Date Active * NO KNOWN FOOD ALLERGIES Unknown 05/05/2011 No Inactive Date Active PREDNISONE RxNorm: 8640 05/05/2011 No Inactive Date Active cephalexin RxNorm: 2231 05/05/2011 No Inactive Date Active theophylline RxNorm: 47877 05/05/2011 No Inactive Date Active azithromycin Unknown 10/11/2011 No Inactive Date Active Levaquin RxNorm: 35718 10/11/2011 No Inactive Date Active MORPHINE SULFATE [...] Start Date Stop Date Status Fill Instructions glipizide 5 mg tablet RxNorm: 143959 1/2 Tablet(s) PO BID TAKE ONE-HALF TABLET BY MOUTH TWICE DAILY 05/27/2018 08/19/2019 Active Synthroid 75 mcg tablet RxNorm: 518002 1 Tablet(s) PO daily 05/15/2018 11/10/2018 Active Synthroid 75 mcg tablet RxNorm: 388110 1 Tablet(s) PO daily 05/15/2018 05/14/2018 Inactive Synthroid 88 mcg tablet RxNorm: 242154 TAKE 1 TABLET BY MOUTH ONCE DAILY 04/08/2018 05/14/2018 Inactive amiodarone 200 mg tablet RxNorm: 863500 1/2 Tablet(s) PO BID 01/21/2018 05/26/2018 Inactive Bactrim DS 800 mg-160 mg tablet RxNorm: 285897 1 Tablet(s) PO BID 01/03/2018 01/02/2018 Inactive take probiotic bid x 7 days Bactrim DS 800 mg-160 mg tablet RxNorm: 174571 1 Tablet(s) PO BID 01/03/2018 01/09/2018 Inactive take probiotic bid x 7 days nitrofurantoin 100 mg capsule RxNorm: 638237 1 Capsule(s) PO BID 12/31/2017 01/06/2018 Inactive nitrofurantoin 100 mg capsule RxNorm: 906791 1 Capsule(s) PO BID 12/31/2017 12/30/2017 Inactive nitrofurantoin 100 mg capsule RxNorm: 395171 1 Capsule(s) PO BID 12/31/2017 12/30/2017 Inactive glipizide 5 mg tablet RxNorm: 456792 TAKE ONE-HALF TABLET BY MOUTH TWICE DAILY 11/23/2017 05/26/2018 Inactive meclizine 25 mg tablet RxNorm: 470053 1 Tablet(s) PO Q6 PRN 11/13/2017 No Stop Date Active Kenalog 40 mg/mL suspension for injection RxNorm: 0738866 1.5 Milliliter(s) Inj 10/30/2017 10/30/2017 Inactive Augmentin 875 mg-125 mg tablet RxNorm: 018907 1 Tablet(s) PO BID 10/30/2017 11/05/2017 Inactive Synthroid 88 mcg tablet RxNorm: 437494 TAKE ONE TABLET BY MOUTH ONCE DAILY 10/15/2017 04/07/2018 Inactive metformin 500 mg tablet RxNorm: 385673 TAKE ONE TABLET BY MOUTH WITH BREAKFAST AND ONE TABLET WITH LUNCH AND TWO TABLETS WITH SUPPER 10/15/2017 01/20/2018 Inactive albuterol sulfate 2.5 mg/3 mL (0.083 %) solution for nebulization RxNorm: 925655 USE ONE VIAL IN NEBULIZER 4 TIMES DAILY NEEDED FOR ASTHMA 08/16/2017 No Stop Date Active Plavix 75 mg tablet RxNorm: 226955 TAKE ONE TABLET BY MOUTH ONCE DAILY 06/25/2017 06/24/2017 Inactive Plavix 75 mg tablet RxNorm: 514100 1 Tablet(s) PO daily TAKE ONE TABLET BY MOUTH ONCE DAILY 06/25/2017 09/19/2017 Inactive acyclovir 800 mg tablet RxNorm: 313246 1 Tablet(s) PO QID 05/15/2017 05/14/2017 Inactive acyclovir 800 mg tablet RxNorm: 373632 1 Tablet(s) PO QID 05/15/2017 05/21/2017 Inactive tramadol 50 mg tablet RxNorm: 289171 1 Tablet(s) PO TID 05/15/2017 05/24/2017 Inactive ketorolac 60 mg/2 mL intramuscular solution RxNorm: 505098 2 Milliliter(s) IM 05/14/2017 05/14/2017 Inactive Augmentin 875 mg-125 mg tablet RxNorm: 508848 1 Tablet(s) PO BID 05/14/2017 05/23/2017 Inactive Synthroid 88 mcg tablet RxNorm: 704775 TAKE ONE TABLET BY MOUTH ONCE DAILY; NEED THYROID LABS DONE 04/16/2017 10/12/2017 Inactive Kenalog 40 mg/mL suspension for injection RxNorm: 8252219 Milliliter(s) Inj 03/06/2017 03/06/2017 Inactive metformin 500 mg tablet RxNorm: 778254 1 Tablet(s) UD 1 tab at breakfast, 1tab at lunch, 2 tab at supper 03/06/2017 09/01/2017 Inactive glipizide 5 mg tablet RxNorm: 146657 TAKE ONE-HALF TABLET BY MOUTH TWICE DAILY 02/23/2017 11/19/2017 Inactive Synthroid 88 mcg tablet RxNorm: 452761 Tablet(s) PO TAKE ONE TABLET BY MOUTH DAILY 01/17/2017 04/15/2017 Inactive Needs thyroid labs done Plavix 75 mg tablet RxNorm: 360208 TAKE ONE TABLET BY MOUTH ONCE DAILY 12/25/2016 06/22/2017 Inactive Kenalog 40 mg/mL suspension for injection RxNorm: 7099485 1.5 Milliliter(s) Inj 09/04/2016 09/04/2016 Inactive Janumet XR 100 mg-1,000 mg tablet,extended release RxNorm: 5735332 1 Tablet(s) PO daily 09/04/2016 03/02/2017 Inactive glipizide 5 mg tablet RxNorm: 759892 TAKE ONE-HALF TABLET BY MOUTH TWICE DAILY 08/24/2016 02/19/2017 Inactive Janumet XR 50 mg-1,000 mg tablet,extended release RxNorm: 1176317 TAKE ONE TABLET BY MOUTH ONCE DAILY 05/29/2016 09/03/2016 Inactive metoprolol tartrate 25 mg tablet RxNorm: 002523 1/4 Tablet(s) PO BID 05/01/2016 05/29/2016 Inactive glipizide 5 mg tablet RxNorm: 265928 TAKE ONE-HALF TABLET BY MOUTH TWICE DAILY 02/21/2016 08/18/2016 Inactive ProAir HFA 90 mcg/actuation aerosol inhaler RxNorm: 099126 2 Puff(s) INH PRN as needed ASTHMA 02/03/2016 03/03/2016 Inactive Accu-Chek Active Test strips RxNorm: 1 test Miscellaneous daily 02/03/2016 08/25/2019 Active DX250.00 albuterol sulfate 2.5 mg/3 mL (0.083 %) solution for nebulization RxNorm: 373404 1 Milliliter(s) INH QID as needed ASTHMA 02/03/2016 06/01/2016 Inactive Janumet XR 50 mg-1,000 mg tablet,extended release RxNorm: 9354680 1 Tablet(s) PO daily 02/03/2016 05/28/2016 Inactive Augmentin 875 mg-125 mg tablet RxNorm: 333480 1 Tablet(s) PO BID 02/03/2016 02/12/2016 Inactive sucralfate 1 gram tablet RxNorm: 902526 1 Tablet(s) PO QID - take 30 minutes before meals and before supper 12/21/2015 04/18/2016 Inactive metformin ER 500 mg tablet,extended release 24 hr RxNorm: 175276 1 Tablet(s) PO BID 12/21/2015 02/02/2016 Inactive digoxin 250 mcg tablet RxNorm: 024088 1 Tablet(s) PO daily 12/21/2015 01/20/2018 Inactive Synthroid 88 mcg tablet RxNorm: 756355 Tablet(s) PO TAKE ONE TABLET BY MOUTH DAILY 12/20/2015 01/16/2017 Inactive Plavix 75 mg tablet RxNorm: 567942 1 Tablet(s) PO daily 12/20/2015 12/13/2016 Inactive Kenalog 40 mg/mL suspension for injection RxNorm: 3526037 1 Milliliter(s) Inj 11/11/2015 11/11/2015 Inactive Kenalog 40 mg/mL suspension for injection RxNorm: 9058510 1 Milliliter(s) Inj 10/25/2015 10/25/2015 Inactive metformin 500 mg tablet RxNorm: 189353 2 Tablet(s) PO BID 07/16/2015 12/20/2015 Inactive metformin 500 mg tablet RxNorm: 671404 TAKE TWO TABLETS BY MOUTH TWICE DAILY 07/16/2015 12/20/2015 Inactive albuterol sulfate 2.5 mg/3 mL (0.083 %) solution for nebulization RxNorm: 360074 1 Milliliter(s) INH QID as needed ASTHMA 07/14/2015 11/10/2015 Inactive glipizide 5 mg tablet RxNorm: 210047 1/2 Tablet(s) PO BID 02/03/2015 01/28/2016 Inactive Symbicort 160 mcg-4.5 mcg/actuation HFA aerosol inhaler RxNorm: 8945433 1 INH 01/06/2015 No Stop Date Active metformin 500 mg tablet RxNorm: 800019 2 Tablet(s) PO BID 12/22/2014 06/19/2015 Inactive Plavix 75 mg tablet RxNorm: 426452 1 Tablet(s) PO daily 12/02/2014 11/26/2015 Inactive note directions of one per day Synthroid 88 mcg tablet RxNorm: 087781 1 Tablet(s) PO daily TAKE ONE TABLET BY MOUTH DAILY 12/02/2014 04/07/2018 Inactive Accu-Chek Active Test strips RxNorm: 1 test Miscellaneous daily 08/17/2014 02/02/2016 Inactive DX250.00 Kenalog 40 mg/mL suspension for injection RxNorm: 1305986 Milliliter(s) Inj 08/17/2014 08/17/2014 Inactive doxycycline hyclate 100 mg tablet RxNorm: 000904 1 Tablet(s) PO BID 08/17/2014 08/26/2014 Inactive albuterol sulfate 2.5 mg/3 mL (0.083 %) solution for nebulization RxNorm: 106153 1 Milliliter(s) INH QID as needed ASTHMA 08/17/2014 08/16/2014 Inactive albuterol sulfate 2.5 mg/3 mL (0.083 %) solution for nebulization RxNorm: 395154 1 Milliliter(s) INH QID as needed ASTHMA 08/17/2014 12/14/2014 Inactive doxycycline hyclate 100 mg tablet RxNorm: 992811 1 Tablet(s) PO BID 08/17/2014 08/16/2014 Inactive Accu-Chek Multiclix Lancet RxNorm: 1 Miscellaneous daily TEST BLOOD SUGAR EVERY DAY 08/17/2014 09/10/2015 Inactive DX 250.00 metformin 500 mg tablet RxNorm: 545385 TAKE TWO TABLETS BY MOUTH TWICE DAILY 06/23/2014 09/20/2014 Inactive metformin 500 mg tablet RxNorm: 677173 2 Tablet(s) PO BID 06/22/2014 12/18/2014 Inactive Bactrim DS 800 mg-160 mg tablet RxNorm: 434916 1 Tablet(s) PO BID 05/11/2014 05/17/2014 Inactive Bactrim DS 800 mg-160 mg tablet RxNorm: 641163 1 Tablet(s) PO BID 05/11/2014 05/10/2014 Inactive Kenalog 40 mg/mL suspension for injection RxNorm: 9765781 Milliliter(s) Inj 04/13/2014 04/13/2014 Inactive Accu-Chek Active Test strips RxNorm: 1 TEST MISCELLANEOUS BID 04/06/2014 10/22/2014 Inactive glipizide 5 mg tablet RxNorm: 164448 1/2 Tablet(s) PO BID 03/03/2014 02/02/2015 Inactive Synthroid 88 mcg tablet RxNorm: 256121 1 Tablet(s) PO daily TAKE ONE TABLET BY MOUTH DAILY 12/11/2013 12/01/2014 Inactive Plavix 75 mg tablet RxNorm: 573861 1 Tablet(s) PO daily 12/11/2013 12/01/2014 Inactive note directions of one per day glipizide 5 mg tablet RxNorm: 713864 1/2 Tablet(s) PO BID 11/10/2013 03/02/2014 Inactive Lipitor 10 mg tablet RxNorm: 070630 1 Tablet(s) PO daily 11/10/2013 12/21/2014 Inactive Accu-Chek Active Test strips RxNorm: strip miscellaneous TEST BLOOD SUGAR EVERY DAY 11/03/2013 No Stop Date Active Accu-Chek Multiclix Lancet RxNorm: misc miscellaneous TEST BLOOD SUGAR EVERY DAY 08/07/2013 08/16/2014 Inactive Accu-Chek Active Test strips RxNorm: strip miscellaneous TEST BLOOD SUGAR EVERY DAY 08/05/2013 No Stop Date Active digoxin 125 mcg tablet RxNorm: 662042 1 Tablet(s) PO daily 08/05/2013 10/28/2014 Inactive metformin 500 mg tablet RxNorm: 900205 2 Tablet(s) PO BID 06/12/2013 06/21/2014 Inactive metformin 500 mg tablet RxNorm: 448642 2 Tablet(s) PO BID 05/12/2013 06/11/2013 Inactive metformin 500 mg tablet RxNorm: 690338 Tablet(s) PO TAKE ONE & ONE-HALF TABLETS BY MOUTH TWICE DAILY 04/10/2013 05/11/2013 Inactive Synthroid 88 mcg tablet RxNorm: 556015 Tablet(s) PO TAKE ONE TABLET BY MOUTH DAILY 01/07/2013 12/19/2015 Inactive Synthroid 88 mcg tablet RxNorm: 087019 1 Tablet(s) PO daily TAKE ONE TABLET BY MOUTH DAILY 01/06/2013 12/10/2013 Inactive Plavix 75 mg tablet RxNorm: 842036 1 Tablet(s) PO daily 12/09/2012 12/03/2013 Inactive note directions of one per day Lipitor 80 mg tablet RxNorm: 642510 Tablet(s) PO TAKE 1 TABLET BY MOUTH EVERY DAY 10/28/2012 11/09/2013 Inactive Synthroid 88 mcg tablet RxNorm: 784709 Tablet(s) PO TAKE ONE TABLET BY MOUTH DAILY 10/07/2012 10/06/2012 Inactive Synthroid 88 mcg tablet RxNorm: 345759 1 Tablet(s) PO daily TAKE ONE TABLET BY MOUTH DAILY 10/07/2012 01/05/2013 Inactive Kenalog 40 mg/mL Susp for Injection RxNorm: 4476938 1 Milliliter(s) IM 10/07/2012 10/07/2012 Inactive digoxin 250 mcg tablet RxNorm: 2487437 1/2 Tablet(s) PO daily 07/15/2012 08/04/2013 Inactive Synthroid 88 mcg tablet RxNorm: 699594 Tablet(s) PO TAKE ONE TABLET BY MOUTH DAILY 06/28/2012 10/06/2012 Inactive Accu-Chek Multiclix Lancet RxNorm: Misc Miscellaneous 06/05/2012 No Stop Date Active TEST BLOOD SUGAR EVERY DAY Accu-Chek Active Test Strips RxNorm: Strip Miscellaneous 06/05/2012 No Stop Date Active TEST BLOOD SUGAR EVERY DAY Lipitor 80 mg tablet RxNorm: 946511 1/2 Tablet(s) PO daily 03/28/2012 No Stop Date Active TAKE 1 TABLET BY MOUTH EVERY DAY metformin 500 mg tablet RxNorm: 957989 1.5 Tablet(s) PO BID 03/28/2012 04/09/2013 Inactive Lipitor 80 mg tablet RxNorm: 972354 1/2 Tablet(s) PO 03/28/2012 08/16/2014 Inactive TAKE 1 TABLET BY MOUTH EVERY DAY Lipitor 80 mg tablet RxNorm: 861043 1/2 Tablet(s) PO daily 03/28/2012 No Stop Date Active TAKE 1 TABLET BY MOUTH EVERY DAY Influenza Virus Vaccine 0.5 mL RxNorm: IM 03/26/2012 03/26/2012 Inactive Pneumovax 23 25 mcg/0.5 mL Injection RxNorm: 124329 Milliliter(s) Inj 03/26/2012 03/26/2012 Inactive metformin 500 mg tablet RxNorm: 577174 1 Tablet(s) PO BID 11/27/2011 03/27/2012 Inactive Plavix 75 mg tablet RxNorm: 608015 1 Tablet(s) PO daily 11/01/2011 11/24/2012 Inactive note directions of one per day Lipitor 80 mg tablet RxNorm: 257466 Tablet(s) PO 10/18/2011 03/27/2012 Inactive TAKE 1 TABLET BY MOUTH EVERY DAY Protonix 40 mg Tab RxNorm: 016663 1 Tablet(s) PO BID 10/11/2011 12/20/2015 Inactive Accu-Chek Active Test Strips RxNorm: 1 test Miscellaneous daily 10/04/2011 08/16/2014 Inactive Carafate 1 gram Tab RxNorm: 663134 1 Tablet(s) PO QID 10/02/2011 10/31/2011 Inactive Carafate 1 gram Tab RxNorm: 194892 1 Tablet(s) PO TID 09/29/2011 09/28/2011 Inactive Carafate 1 gram Tab RxNorm: 981730 1 Tablet(s) PO TID 09/29/2011 10/01/2011 Inactive Kenalog 40 mg/mL Susp for Injection RxNorm: 0421521 2 Milliliter(s) Inj 07/31/2011 07/31/2011 Inactive Synthroid 88 mcg tablet RxNorm: 644047 1 Tablet(s) PO daily 06/06/2011 10/11/2011 Inactive Accu-Chek Active Test Strips RxNorm: 1 test Miscellaneous BID 06/05/2011 10/03/2011 Inactive Accu-Chek Multiclix Lancet RxNorm: 1 test Miscellaneous BID 06/02/2011 09/24/2011 Inactive Accu-Chek Active Test strips RxNorm: 1 test Miscellaneous BID 06/02/2011 06/04/2011 Inactive Bactrim DS 800 mg-160 mg Tab RxNorm: 956061 1 Tablet(s) PO BID 05/22/2011 05/31/2011 Inactive metformin 500 mg Tab RxNorm: 133051 1 Tablet(s) PO TID 05/05/2011 10/31/2011 Inactive Influenza Virus Vaccine 0.5 mL RxNorm: IM 05/02/2011 05/02/2011 Inactive albuterol sulfate HFA 90 mcg/Actuation Aerosol Inhaler RxNorm: 278277 1 Puff(s) INH PRN prn shortness of breath No Start Date Active Xarelto 20 mg tablet RxNorm: 1228906 1 Tablet(s) PO daily No Start Date Active multivitamin chewable tablet RxNorm: 1 Tablet(s) PO daily No Start Date Active Fish Oil 300 mg-1,000 mg capsule RxNorm: 687137 1 Capsule(s) PO occasional No Start Date Active hyoscyamine 0.125 mg sublingual tablet RxNorm: 8601422 1 Tablet(s) SL Q6 No Start Date Active simvastatin 20 mg tablet RxNorm: 667074 1/2 Tablet(s) PO daily No Start Date 12/20/2015 Inactive Zantac 75 75 mg Tab RxNorm: 616581 2 Tablet(s) PO daily No Start Date 12/20/2015 Inactive Protonix 40 mg Tab RxNorm: 669277 1 Tablet(s) PO daily No Start Date 10/10/2011 Inactive Fish Oil 1,000 mg capsule RxNorm: 3 Capsule(s) PO daily No Start Date 12/20/2015 Inactive amiodarone 400 mg tablet RxNorm: 522425 1 Tablet(s) PO daily No Start Date 12/09/2017 Inactive digoxin 125 mcg tablet RxNorm: 7650198 1 Tablet(s) PO daily No Start Date 08/04/2013 Inactive Brilinta 90 mg Tab RxNorm: 2829758 1 Tablet(s) PO daily No Start Date 10/10/2011 Inactive Fish Oil 1,000 mg Cap RxNorm: 3 Capsule(s) PO daily No Start Date 12/21/2015 Inactive Flintstones Complete 18 mg iron chewable tablet RxNorm: 2 Tablet(s) PO daily No Start Date 12/20/2015 Inactive Niaspan Extended-Release 500 mg 24 hr Tab RxNorm: 4964193 1 Tablet(s) PO daily No Start Date 09/24/2011 Inactive samples tramadol 50 mg tablet RxNorm: 268437 1 Tablet(s) PO TID No Start Date 05/14/2017 Inactive aspirin 81 mg Cap, Delayed Release RxNorm: 995094 Capsule(s) PO daily No Start Date 05/01/2012 Inactive pantoprazole 40 mg tablet,delayed release RxNorm: 694193 1 Tablet(s) PO daily No Start Date 05/26/2018 Inactive metformin 500 mg Tab RxNorm: 616972 1 Tablet(s) PO BID No Start Date 05/04/2011 Inactive Singulair 10 mg tablet RxNorm: 693086 1 Tablet(s) PO daily No Start Date 05/26/2018 Inactive Prilosec OTC 20 mg tablet,delayed release RxNorm: 299660 1 Tablet(s) PO daily No Start Date 10/31/2016 Inactive Zantac 150 mg Tab RxNorm: 998057 1 Tablet(s) PO BID No Start Date 10/10/2011 Inactive Synthroid 88 mcg Tab RxNorm: 742879 1 Tablet(s) PO daily No Start Date 06/05/2011 Inactive Plavix 75 mg Tab RxNorm: 881546 1 Tablet(s) PO daily No Start Date 10/31/2011 Inactive amiodarone 200 mg tablet RxNorm: 590581 1 Tablet(s) PO BID No Start Date 01/20/2018 Inactive Cartia XT 120 mg capsule,extended release RxNorm: 790981 1 Capsule(s) PO daily and 1 QPM if HR above [address] Dr Aguilar manages No Start Date 05/26/2018 Inactive aspirin 81 mg Cap, Delayed Release RxNorm: 746107 1 Capsule(s) PO daily No Start Date 10/01/2011 Inactive Lipitor 80 mg Tab RxNorm: 844826 1 Tablet(s) PO daily No Start Date 10/17/2011 Inactive Symbicort 160 mcg-4.5 mcg/Actuation HFA Aerosol Inhaler RxNorm: 4467981 1 INH No Start Date 01/05/2015 Inactive Medication Administered Medication Codes Instructions Start Date Status Kenalog 40 mg/mL suspension for injection RxNorm: 3431379 1.5Milliliter 10/30/2017 No longer Active ketorolac 60 mg/2 mL intramuscular solution RxNorm: 602060 2Milliliter 05/14/2017 No longer Active Kenalog 40 mg/mL suspension for injection RxNorm: 4507245 Milliliter 03/06/2017 No longer Active Kenalog 40 mg/mL suspension for injection RxNorm: 7748813 1.5Milliliter 09/04/2016 No longer Active Kenalog 40 mg/mL suspension for injection RxNorm: 0420884 1Milliliter 11/11/2015 No longer Active Kenalog 40 mg/mL suspension for injection RxNorm: 1599415 1Milliliter 10/25/2015 No longer Active Kenalog 40 mg/mL suspension for injection RxNorm: 9076563 Milliliter 08/17/2014 No longer Active Kenalog 40 mg/mL suspension for injection RxNorm: 5132018 Milliliter 04/13/2014 No longer Active Kenalog 40 mg/mL Susp for Injection RxNorm: 0195219 1Milliliter 10/07/2012 No longer Active Influenza Virus Vaccine 0.5 mL RxNorm: 03/26/2012 No longer Active Pneumovax 23 25 mcg/0.5 mL Injection RxNorm: 449501 Milliliter 03/26/2012 No longer Active Kenalog 40 mg/mL Susp for Injection RxNorm: 8690316 2Milliliter 07/31/2011 No longer Active Influenza Virus [...] Item Item Code Result Date Free T4 Ung557 FREE T4 1.66 ng/dL 05/09/2018 Tsh Ord6 [...] 18.0 % 05/09/2018 Cbc With Differential Ord2 [place]% 11.6 % 05/09/2018 Cbc With Differential Ord2 [...] 1.18 K/ul 05/09/2018 Cbc With Differential Ord2 [place] ABS# 0.8 K/ul 05/09/2018 Cbc With Differential [...] Metabolic Ord15 CALCIUM 9.3 mg/dL 05/09/2018 %Hba1C Pgb970 % HbA1c 95925- 6 8.9 % 05/09/2018 %Hba1C Qgq653 Gluc Ave 209 mg/dL 05/09/2018 LIPID GRP CHOLESTEROL 184 mg/dL 01/14/2018 LIPID GRP Triglyceride 65 mg/dL 01/14/2018 LIPID GRP HDL CHOLESTEROL 53 mg/dL 01/14/2018 LIPID GRP Chol/HDL Ratio 3.47 ratio 01/14/2018 LIPID GRP NON-HDL Chol 131 mg/dL 01/14/2018 LIPID GRP LDL Cholesterol 118 mg/dL 01/14/2018 A1C HPLC 1658317 Hgb A1c 58505-9 6.5 % 01/14/2018 CBC 5388168 WBC 5.8 10e9/L 01/14/2018 CBC 4157986 RBC 4.67 10e12/L 01/14/2018 CBC 2661658 HEMOGLOBIN 12.4 g/dL 01/14/2018 CBC 8530501 HEMATOCRIT 40.6 % 01/14/2018 CBC 5423837 MCV 86.9 fL 01/14/2018 CBC 2972999 MCH 26.6 pg 01/14/2018 CBC 7624650 MCHC 30.5 g/dL 01/14/2018 CBC 4475555 PLATELET COUNT 419 10e9/L 01/14/2018 CBC 5259556 Mean Plt Volume 10.1 fL 01/14/2018 CBC 3451534 Neut Auto 60.7 % 01/14/2018 CBC 7183893 Lymph Auto 24.8 % 01/14/2018 CBC 0249529 [place] Auto 9.7 % 01/14/2018 CBC 8608078 Eos Auto 3.4 % 01/14/2018 CBC 8114725 RDW 25.0 % 01/14/2018 CBC 3931995 Baso Auto 1.4 % 01/14/2018 CBC 7273657 Neutrophil Abs 3.52 10e9/L 01/14/2018 CBC 5241566 Lymphocyte Abs 1.44 10e9/L 01/14/2018 CBC 1046872 Monocyte Abs 0.56 10e9/L 01/14/2018 CBC 9815085 Eosinophil Abs 0.20 10e9/L 01/14/2018 CBC 9294345 Basophil Abs 0.08 10e9/L 01/14/2018 CBC 2993724 RDW-SD 75.4 fL 01/14/2018 MEAN GLUC 8735277 Calc Mean Gluc 140 mg/dL 01/14/2018 Culture Urine [id number] URINE CULTURE SEE NOTES 01/03/2018 Culture Urine [id number] Continued Results 01/03/2018 Urine Culture Ucult Complete [...] 24.8 pg 11/20/2017 Cbc With Differential Ord2 [place]% 7.9 % 11/20/2017 Cbc With Differential Ord2 [...] 1.65 K/ul 11/20/2017 Cbc With Differential Ord2 [place] ABS# 0.7 K/ul 11/20/2017 Cbc With Differential Ord2 Eos ABS# 0.3 K/ul 11/20/2017 Cbc With Differential Ord2 Baso ABS# 0.1 K/ul 11/20/2017 Comp Metabolic Jzw607 NA 142 mEq/L 11/20/2017 Comp Metabolic Yje898 K 4.1 mEq/L 11/20/2017 Comp Metabolic Ybx696 CL 104 mEq/L 11/20/2017 Comp Metabolic Ngr591 CO2 29.0 mEq/L 11/20/2017 Comp Metabolic Omc021 ANION GAP 13 11/20/2017 Comp Metabolic Lcp541 GLUCOSE 178 mg/dL 11/20/2017 Comp Metabolic Ulj331 Creat 0.6 mg/dL 11/20/2017 Comp Metabolic Iun816 eGFR 112 ml/min/1.73m2 11/20/2017 Comp Metabolic Wnh834 BUN 19 mg/dL 11/20/2017 Comp Metabolic Ukg489 B/C Ratio 33.9 Ratio 11/20/2017 Comp Metabolic Qnc778 CALCIUM 9.3 mg/dL 11/20/2017 Comp Metabolic Mwe958 ALK PHOS 60 U/L 11/20/2017 Comp Metabolic Kxe174 AST(SGOT) 13 U/L 11/20/2017 Comp Metabolic Uxm037 ALT(SGPT) 14 U/L 11/20/2017 Comp Metabolic Hws212 BILI T 0.4 mg/dL 11/20/2017 Comp Metabolic Bcv083 ALBUMIN 4.1 g/dL 11/20/2017 Comp Metabolic Osw965 TPRO 6.0 g/dL 11/20/2017 Comp Metabolic Ibr122 GLOB 1.9 g/dL 11/20/2017 Comp Metabolic Rdi762 A/G Ratio 2.2 Ratio 11/20/2017 Comp Metabolic Qqa164 Osmo 290 mOsmo 11/20/2017 Cbc With Differential [...] 24.8 pg 11/13/2017 Cbc With Differential Ord2 [place]% 7.8 % 11/13/2017 Cbc With Differential Ord2 [...] 1.57 K/ul 11/13/2017 Cbc With Differential Ord2 [place] ABS# 0.8 K/ul 11/13/2017 Cbc With Differential Ord2 Eos ABS# 0.3 K/ul 11/13/2017 Cbc With Differential Ord2 Baso ABS# 0.1 K/ul 11/13/2017 Comp Metabolic Sbe130 NA 142 mEq/L 11/13/2017 Comp Metabolic Ple160 K 4.2 mEq/L 11/13/2017 Comp Metabolic Ogv060 CL 104 mEq/L 11/13/2017 Comp Metabolic Jwp801 CO2 26.0 mEq/L 11/13/2017 Comp Metabolic Ihc452 ANION GAP 16 11/13/2017 Comp Metabolic Ifi173 GLUCOSE 115 mg/dL 11/13/2017 Comp Metabolic Ojr821 Creat 0.6 mg/dL 11/13/2017 Comp Metabolic Muc495 eGFR 114 ml/min/1.73m2 11/13/2017 Comp Metabolic Tbl358 BUN 15 mg/dL 11/13/2017 Comp Metabolic Zzf189 B/C Ratio 27.3 Ratio 11/13/2017 Comp Metabolic Ruw249 CALCIUM 9.2 mg/dL 11/13/2017 Comp Metabolic Kib566 ALK PHOS 59 U/L 11/13/2017 Comp Metabolic Agb014 AST(SGOT) 12 U/L 11/13/2017 Comp Metabolic Kxv993 ALT(SGPT) 13 U/L 11/13/2017 Comp Metabolic Fmg752 BILI T 0.5 mg/dL 11/13/2017 Comp Metabolic Xef447 ALBUMIN 4.0 g/dL 11/13/2017 Comp Metabolic Zdw248 TPRO 6.0 g/dL 11/13/2017 Comp Metabolic Jxm117 GLOB 2.0 g/dL 11/13/2017 Comp Metabolic Nyq362 A/G Ratio 2.0 Ratio 11/13/2017 Comp Metabolic Fdj644 Osmo 285 mOsmo 11/13/2017 Cbc With Differential [...] 26.9 pg 09/20/2017 Cbc With Differential Ord2 [place]% 9.9 % 09/20/2017 Cbc With Differential Ord2 [...] 1.55 K/ul 09/20/2017 Cbc With Differential Ord2 [place] ABS# 0.9 K/ul 09/20/2017 Cbc With Differential Ord2 Eos ABS# 0.4 K/ul 09/20/2017 Cbc With Differential Ord2 Baso ABS# 0.1 K/ul 09/20/2017 Comp Metabolic Gjw207 NA 138 mEq/L 09/20/2017 Comp Metabolic Ewq551 K 4.0 mEq/L 09/20/2017 Comp Metabolic Fpz734 CL 99 mEq/L 09/20/2017 Comp Metabolic Opy594 CO2 26.0 mEq/L 09/20/2017 Comp Metabolic Zhi041 ANION GAP 17 09/20/2017 Comp Metabolic Ner962 GLUCOSE 275 mg/dL 09/20/2017 Comp Metabolic Ouz639 Creat 0.6 mg/dL 09/20/2017 Comp Metabolic Qma841 eGFR 96 ml/min/1.73m2 09/20/2017 Comp Metabolic Zvq152 BUN 17 mg/dL 09/20/2017 Comp Metabolic Wcm833 B/C Ratio 26.6 Ratio 09/20/2017 Comp Metabolic Lcz330 CALCIUM 9.5 mg/dL 09/20/2017 Comp Metabolic Vcs206 ALK PHOS 57 U/L 09/20/2017 Comp Metabolic Cab919 AST(SGOT) 13 U/L 09/20/2017 Comp Metabolic Exy426 ALT(SGPT) 13 U/L 09/20/2017 Comp Metabolic Ert837 BILI T 0.5 mg/dL 09/20/2017 Comp Metabolic Xtp111 ALBUMIN 4.1 g/dL 09/20/2017 Comp Metabolic Zdb185 TPRO 5.9 g/dL 09/20/2017 Comp Metabolic Eet525 GLOB 1.8 g/dL 09/20/2017 Comp Metabolic Fjo465 A/G Ratio 2.3 Ratio 09/20/2017 Comp Metabolic Pbn489 Osmo 287 mOsmo 09/20/2017 %Hba1C Pdt328 % HbA1c 99107- 6 7.2 % 09/20/2017 %Hba1C Vev394 Gluc Ave 160 mg/dL 09/20/2017 MEAN GLUC 1443006 Calc Mean Gluc 169 mg/dL 02/28/2017 CBC 7953616 WBC 7.6 10e9/L 02/28/2017 CBC 1006055 RBC 4.91 10e12/L 02/28/2017 CBC [id number] HEMOGLOBIN 13.2 g/dL 02/28/2017 CBC [id number] HEMATOCRIT 42.7 % 02/28/2017 CBC 7328064 MCV 87.0 fL 02/28/2017 CBC 5797924 MCH 26.9 pg 02/28/2017 CBC 9218286 MCHC 30.9 g/dL 02/28/2017 CBC 1511459 PLATELET COUNT 341 10e9/L 02/28/2017 CBC 1916339 Mean Plt Volume 10.7 fL 02/28/2017 CBC 0106606 Neut Auto 62.1 % 02/28/2017 CBC 9905280 Lymph Auto 20.2 % 02/28/2017 CBC 8422123 [place] Auto 9.3 % 02/28/2017 CBC 6977478 Eos Auto 7.1 % 02/28/2017 CBC 5491143 RDW 15.8 % 02/28/2017 CBC 8398606 Baso Auto 1.3 % 02/28/2017 CBC 8727395 Neutrophil Abs 4.72 10e9/L 02/28/2017 CBC 6064202 Lymphocyte Abs 1.54 10e9/L 02/28/2017 CBC 3569412 Monocyte Abs 0.71 10e9/L 02/28/2017 CBC 3947172 Eosinophil Abs 0.54 10e9/L 02/28/2017 CBC 2394750 RDW-SD 49.0 fL 02/28/2017 CBC 7067251 Basophil Abs 0.10 10e9/L 02/28/2017 LIPID GRP 5724431 CHOLESTEROL 189 mg/dL 02/28/2017 LIPID GRP Triglyceride 124 mg/dL 02/28/2017 LIPID GRP HDL CHOLESTEROL 43 mg/dL 02/28/2017 LIPID GRP Chol/HDL Ratio 4.40 ratio 02/28/2017 LIPID GRP NON-HDL Chol 146 mg/dL 02/28/2017 LIPID GRP LDL Cholesterol 121 mg/dL 02/28/2017 A1C HPLC 8997838 Hgb A1c 47772-4 7.5 % 02/28/2017 GFR CALC 6505715 GFR Non Afr Amr >60 mL/min 02/28/2017 GFR CALC 3117676 GFR Afr Amr >60 mL/min 02/28/2017 CHEM 14 3852824 AST 15 U/L 02/28/2017 CHEM 14 3800602 ALT 16 U/L 02/28/2017 CHEM 14 6199798 BUN 18 mg/dL 02/28/2017 CHEM 14 1040072 ALBUMIN 4.0 g/dL 02/28/2017 CHEM 14 9466731 CHLORIDE 104 mmol/L 02/28/2017 CHEM 14 5482252 Bili Total 0.6 mg/dL 02/28/2017 CHEM 14 9237853 ALK PHOS 53 U/L 02/28/2017 CHEM 14 7338812 SODIUM 143 mmol/L 02/28/2017 CHEM 14 9184767 CREATININE 0.66 mg/dL 02/28/2017 CHEM 14 5970381 CALCIUM 9.2 mg/dL 02/28/2017 CHEM 14 6954807 POTASSIUM 3.9 mmol/L 02/28/2017 CHEM 14 8496670 TOTAL PROTEIN 6.6 g/dL 02/28/2017 CHEM 14 8598335 GLUCOSE 146 mg/dL 02/28/2017 CHEM 14 8687083 Bicarbonate 30 mmol/L 02/28/2017 CHEM 14 1962783 AGAP 9 mmol/L 02/28/2017 CBC 3252298 WBC 6.8 10e9/L 08/21/2016 CBC 8445634 RBC 4.87 10e12/L 08/21/2016 CBC 8079221 HEMOGLOBIN 12.7 g/dL 08/21/2016 CBC 6008784 HEMATOCRIT 40.5 % 08/21/2016 CBC 9595279 MCV 83.2 fL 08/21/2016 CBC 2023941 MCH 26.1 pg 08/21/2016 CBC 0509978 MCHC 31.4 g/dL 08/21/2016 CBC 4565481 PLATELET COUNT 334 10e9/L 08/21/2016 CBC 8331818 Mean Plt Volume 10.5 fL 08/21/2016 CBC 4482077 Neut Auto 56.4 % 08/21/2016 CBC 2565986 Lymph Auto 23.5 % 08/21/2016 CBC 7603150 [place] Auto 9.7 % 08/21/2016 CBC 8180395 Eos Auto 9.5 % 08/21/2016 CBC 4142894 RDW 16.6 % 08/21/2016 CBC 2271380 Baso Auto 0.9 % 08/21/2016 CBC 0264383 Neutrophil Abs 3.84 10e9/L 08/21/2016 CBC 1369437 Lymphocyte Abs 1.60 10e9/L 08/21/2016 CBC 2816174 Monocyte Abs 0.66 10e9/L 08/21/2016 CBC 1700574 Eosinophil Abs 0.65 10e9/L 08/21/2016 CBC 1318643 RDW-SD 49.7 fL 08/21/2016 CBC 0804634 Basophil Abs 0.06 10e9/L 08/21/2016 FREE T4 4707258 T4 Free 1.39 ng/dL 08/21/2016 LIPID GRP CHOLESTEROL 211 mg/dL 08/21/2016 LIPID GRP Triglyceride 105 mg/dL 08/21/2016 LIPID GRP HDL CHOLESTEROL 45 mg/dL 08/21/2016 LIPID GRP Chol/HDL Ratio 4.69 ratio 08/21/2016 LIPID GRP NON-HDL Chol 166 mg/dL 08/21/2016 LIPID GRP LDL Cholesterol 145 mg/dL 08/21/2016 A1C HPLC 9665842 Hgb A1c 39243-8 7.4 % 08/21/2016 GFR CALC 1131266 GFR Non Afr Amr >60 mL/min 08/21/2016 GFR CALC 0365552 GFR Afr Amr >60 mL/min 08/21/2016 CHEM 14 4505845 AST 16 U/L 08/21/2016 CHEM 14 20280111 ALT 14 U/L 08/21/2016 CHEM 14 20280111 BUN 14 mg/dL 08/21/2016 CHEM 14 9985011 ALBUMIN 4.1 g/dL 08/21/2016 CHEM 14 20280111 CHLORIDE 105 mmol/L 08/21/2016 CHEM 14 3582295 Bili Total 0.5 mg/dL 08/21/2016 CHEM 14 1905483 ALK PHOS 53 U/L 08/21/2016 CHEM 14 2235828 SODIUM 141 mmol/L 08/21/2016 CHEM 14 0566008 CREATININE 0.66 mg/dL 08/21/2016 CHEM 14 3927020 CALCIUM 9.3 mg/dL 08/21/2016 CHEM 14 6298301 POTASSIUM 4.0 mmol/L 08/21/2016 CHEM 14 2742397 TOTAL PROTEIN 6.6 g/dL 08/21/2016 CHEM 14 5321212 GLUCOSE 145 mg/dL 08/21/2016 CHEM 14 3640548 Bicarbonate 29 mmol/L 08/21/2016 CHEM 14 8658953 AGAP 7 mmol/L 08/21/2016 TSH 3776548 TSH 1.485 uIU/mL 08/21/2016 MEAN GLUC 0900498 Calc Mean Gluc 166 mg/dL 08/21/2016 Cbc [...] 22.8 % 04/24/2016 Cbc With Differential Ord2 [place]% 10.9 % 04/24/2016 Cbc With Differential Ord2 [...] 1.49 K/ul 04/24/2016 Cbc With Differential Ord2 [place] ABS# 0.7 K/ul 04/24/2016 Cbc With Differential Ord2 [place] ABS# 0.7 K/ul 04/24/2016 Cbc With Differential Ord2 Baso ABS# 0.1 K/ul 04/24/2016 Comp Metabolic Hjm392 NA 138 mEq/L 04/24/2016 Comp Metabolic Gep066 K 4.3 mEq/L 04/24/2016 Comp Metabolic Qkj762 CL 103 mEq/L 04/24/2016 Comp Metabolic Fbw987 CO2 28.0 mEq/L 04/24/2016 Comp Metabolic Sty624 ANION GAP 11 04/24/2016 Comp Metabolic Rjp272 GLUCOSE 138 mg/dL 04/24/2016 Comp Metabolic Hij939 Creat 0.6 mg/dL 04/24/2016 Comp Metabolic Deh051 eGFR 98 ml/min/1.73m2 04/24/2016 Comp Metabolic Qya266 BUN 16 mg/dL 04/24/2016 Comp Metabolic Cwr796 B/C Ratio 25.4 Ratio 04/24/2016 Comp Metabolic Ayx791 CALCIUM 9.2 mg/dL 04/24/2016 Comp Metabolic Wwa553 ALK PHOS 55 U/L 04/24/2016 Comp Metabolic Tko537 AST(SGOT) 16 U/L 04/24/2016 Comp Metabolic Uri099 ALT(SGPT) 16 U/L 04/24/2016 Comp Metabolic Twr708 BILI T 0.6 mg/dL 04/24/2016 Comp Metabolic Vle663 ALBUMIN 3.9 g/dL 04/24/2016 Comp Metabolic Jzw534 TPRO 6.1 g/dL 04/24/2016 Comp Metabolic Otk671 GLOB 2.2 g/dL 04/24/2016 Comp Metabolic Fbq336 A/G Ratio 1.7 Ratio 04/24/2016 Comp Metabolic Bcd355 Osmo 279 mOsmo 04/24/2016 Lipid Ord30 CHOL 208 mg/dL 04/24/2016 Lipid Ord30 HDL 42.0 mg/dl 04/24/2016 Lipid Ord30 TRIG 98 mg/dL 04/24/2016 Lipid Ord30 LDL 146 mg/dL 04/24/2016 Lipid Ord30 C/HDL 5.0 Ratio 04/24/2016 %Hba1C Mem465 % HbA1c 19650- 6 7.5 % 04/24/2016 %Hba1C Zdo783 Gluc Ave 169 mg/dL 04/24/2016 Tsh Ord6 hTSH II 0.82 uIU/mL 04/24/2016 Free T4 Gel235 FREE T4 1.17 ng/dL 04/24/2016 Digoxin Ord9 DIGOXIN 0.9 NG/ML 02/03/2016 Free T4 Lji049 FREE T4 1.17 ng/dL 12/07/2015 %Hba1C Ayu248 % HbA1c 53882- 6 7.5 % 12/07/2015 %Hba1C Riq077 Gluc Ave 169 mg/dL 12/07/2015 Tsh Ord6 [...] 25.5 pg 12/07/2015 Cbc With Differential Ord2 [place]% 9.3 % 12/07/2015 Cbc With Differential Ord2 [...] 1.23 K/ul 12/07/2015 Cbc With Differential Ord2 [place] ABS# 0.7 K/ul 12/07/2015 Cbc With Differential Ord2 [place] ABS# 0.3 K/ul 12/07/2015 Cbc With Differential Ord2 Baso ABS# 0.1 K/ul 12/07/2015 Lipid Ord30 CHOL 196 mg/dL 12/07/2015 Lipid Ord30 HDL 41.0 mg/dl 12/07/2015 Lipid Ord30 TRIG 142 mg/dL 12/07/2015 Lipid Ord30 LDL 127 mg/dL 12/07/2015 Lipid Ord30 C/HDL 4.8 Ratio 12/07/2015 Comp Metabolic Hgw347 NA 139 mEq/L 12/07/2015 Comp Metabolic Mee176 K 4.3 mEq/L 12/07/2015 Comp Metabolic Zom116 CL 101 mEq/L 12/07/2015 Comp Metabolic Uqq997 CO2 33.0 mEq/L 12/07/2015 Comp Metabolic Tog557 ANION GAP 9 12/07/2015 Comp Metabolic Rey010 GLUCOSE 159 mg/dL 12/07/2015 Comp Metabolic Cpz469 Creat 0.6 mg/dL 12/07/2015 Comp Metabolic Avf870 eGFR 108 ml/min/1.73m2 12/07/2015 Comp Metabolic Cty566 BUN 13 mg/dL 12/07/2015 Comp Metabolic Hxq794 B/C Ratio 22.4 Ratio 12/07/2015 Comp Metabolic Nvh674 CALCIUM 9.0 mg/dL 12/07/2015 Comp Metabolic Ltw460 ALK PHOS 60 U/L 12/07/2015 Comp Metabolic Owc749 AST(SGOT) 16 U/L 12/07/2015 Comp Metabolic Nqf594 ALT(SGPT) 19 U/L 12/07/2015 Comp Metabolic Svy661 BILI T 0.6 mg/dL 12/07/2015 Comp Metabolic Gde243 ALBUMIN 4.0 g/dL 12/07/2015 Comp Metabolic Fvc099 TPRO 6.0 g/dL 12/07/2015 Comp Metabolic Adm028 GLOB 2.0 g/dL 12/07/2015 Comp Metabolic Khd717 A/G Ratio 1.9 Ratio 12/07/2015 Comp Metabolic Fak365 Osmo 281 mOsmo 12/07/2015 Free T4 Gsp973 FREE T4 1.31 ng/dL 06/14/2015 Cbc With [...] Ord6 hTSH II 1.10 uIU/mL 06/14/2015 %Hba1C Wdl517 % HbA1c 29866- 6 6.8 % 06/14/2015 %Hba1C Xht855 Gluc Ave 148 mg/dL 06/14/2015 CHEM 14 1450400 AST 14 U/L 12/07/2014 CHEM 14 4413728 ALT 12 IU/L 12/07/2014 CHEM 14 9006261 BUN 12 MG/DL 12/07/2014 CHEM 14 7485259 ALBUMIN 3.9 GM/DL 12/07/2014 CHEM 14 9669497 CHLORIDE 103 MMOL/L 12/07/2014 CHEM 14 4309297 BILI TOT 0.6 MG/DL 12/07/2014 CHEM 14 3219819 ALK PHOS 49 U/L 12/07/2014 CHEM 14 9521564 SODIUM 140 MMOL/L 12/07/2014 CHEM 14 0291260 CREATININE 0.57 MG/DL 12/07/2014 CHEM 14 6499044 CALCIUM 9.5 MG/DL 12/07/2014 CHEM 14 8371394 POTASSIUM 4.0 MMOL/L 12/07/2014 CHEM 14 0428840 PROT TOT 6.5 GM/DL 12/07/2014 CHEM 14 0200141 GLUCOSE 110 MG/DL 12/07/2014 CHEM 14 4889672 BICARB 29 MMOL/L 12/07/2014 CHEM 14 0016985 ANION GAP 8 MEQ/L 12/07/2014 A1C HPLC 6011173 A1C HPLC 39619-7 6.4 % 12/07/2014 TSH 5609339 TSH 1.106 uIU/ML 12/07/2014 LIPID GRP HDL TEST 46 MG/DL 12/07/2014 LIPID GRP TRIG 119 MG/DL 12/07/2014 LIPID GRP TEST LDL 108 MG/DL 12/07/2014 LIPID GRP CHOL 178 MG/DL 12/07/2014 LIPID GRP RCHOL/HDL 3.87 RATIO 12/07/2014 LIPID GRP NON-HDL CH 132 MG/DL 12/07/2014 CBC 7865926 WBC 6.4 10e9/L 12/07/2014 CBC 1309881 RBC 4.51 10e12/L 12/07/2014 CBC 3098833 HGB 12.2 g/dL 12/07/2014 CBC 6789621 HCT DET 39.0 % 12/07/2014 CBC 7398107 MCV 86.5 fL 12/07/2014 CBC 5312401 MCH 27.1 pg 12/07/2014 CBC 5057328 MCHC 31.3 g/dL 12/07/2014 CBC 7493625 PLT 325 10e9/L 12/07/2014 CBC 0849917 MPV 10.4 fL 12/07/2014 CBC 1888469 TIM % 62.0 % 12/07/2014 CBC 4087771 LY % 21.4 % 12/07/2014 CBC 7329975 MON % 9.5 % 12/07/2014 CBC 4918030 EOS % 6.3 % 12/07/2014 CBC 1140537 BASO % 0.8 % 12/07/2014 CBC 4608460 RDW 15.8 % 12/07/2014 CBC 6318496 ABS TIM 3.97 10e9/L 12/07/2014 CBC 9057684 ABS LYMPH 1.37 10e9/L 12/07/2014 CBC 8413798 ABS MONO 0.61 10e9/L 12/07/2014 CBC 6846896 ABS EOS 0.40 10e9/L 12/07/2014 CBC 0093494 ABS BASO 0.05 10e9/L 12/07/2014 CBC 8451462 RDW-SD 48.8 fL 12/07/2014 FREE T4 3564311 FREE T4 1.37 NG/DL 12/07/2014 GFR CALC 4702123 GFR AA >60 ML/MIN 12/07/2014 GFR CALC 4389921 GFR NON-AA >60 ML/MIN 12/07/2014 CHEM 14 2644558 AST 17 U/L 11/04/2013 CHEM 14 7257669 ALT 16 IU/L 11/04/2013 CHEM 14 1157910 BUN 13 MG/DL 11/04/2013 CHEM 14 9422198 ALBUMIN 4.3 GM/DL 11/04/2013 CHEM 14 8464836 CHLORIDE 104 MMOL/L 11/04/2013 CHEM 14 0785032 BILI TOT 0.7 MG/DL 11/04/2013 CHEM 14 3697160 ALK PHOS 67 U/L 11/04/2013 CHEM 14 8578603 SODIUM 140 MMOL/L 11/04/2013 CHEM 14 5842378 CREATININE 0.64 MG/DL 11/04/2013 CHEM 14 4520997 CALCIUM 9.5 MG/DL 11/04/2013 CHEM 14 6007151 POTASSIUM 4.0 MMOL/L 11/04/2013 CHEM 14 2836866 PROT TOT 6.1 GM/DL 11/04/2013 CHEM 14 1003689 GLUCOSE 157 MG/DL 11/04/2013 CHEM 14 9078111 BICARB 27 MMOL/L 11/04/2013 CHEM 14 5824194 ANION GAP 9 MEQ/L 11/04/2013 FREE T4 9132362 FREE T4 1.44 NG/DL 11/04/2013 GFR CALC 5435508 GFR AA >60 ML/MIN 11/04/2013 GFR CALC 3776221 GFR NON-AA >60 ML/MIN 11/04/2013 TSH 7041883 TSH 0.841 uIU/ML 11/04/2013 A1C HPLC 6723090 A1C HPLC 06842-5 7.2 % 11/04/2013 LIPID GRP HDL TEST 45 MG/DL 11/04/2013 LIPID GRP TRIG 104 MG/DL 11/04/2013 LIPID GRP TEST LDL 82 MG/DL 11/04/2013 LIPID GRP CHOL 148 MG/DL 11/04/2013 LIPID GRP RCHOL/HDL 3.29 RATIO 11/04/2013 CBC 7618176 WBC 6.2 10e9/L 11/04/2013 CBC 1467522 RBC 4.38 10e12/L 11/04/2013 CBC 5912462 HGB 11.8 g/dL 11/04/2013 CBC 1361810 HCT DET 37.5 % 11/04/2013 CBC 5062287 MCV 85.6 fL 11/04/2013 CBC 1160275 MCH 26.9 pg 11/04/2013 CBC 9482981 MCHC 31.5 g/dL 11/04/2013 CBC 6898878 PLT 330 10e9/L 11/04/2013 CBC 2689862 MPV 10.6 fL 11/04/2013 CBC 9731937 TIM % 60.8 % 11/04/2013 CBC 4419819 LY % 22.1 % 11/04/2013 CBC 3086087 MON % 9.6 % 11/04/2013 CBC 8594436 EOS % 6.4 % 11/04/2013 CBC 9251799 BASO % 1.1 % 11/04/2013 CBC 7989543 RDW 15.6 % 11/04/2013 CBC 5945388 ABS TIM 3.77 10e9/L 11/04/2013 CBC 4442276 ABS LYMPH 1.37 10e9/L 11/04/2013 CBC 7006284 ABS MONO 0.60 10e9/L 11/04/2013 CBC 7010481 ABS EOS 0.40 10e9/L 11/04/2013 CBC 5879519 ABS BASO 0.07 10e9/L 11/04/2013 CBC 0659936 RDW-SD 48.0 fL 11/04/2013 DIGOXIN 4862976 DIGOXIN 0.5 NG/ML 11/04/2013 A1C HPLC 9885911 A1C HPLC 29864-5 7.6 % 07/28/2013 LIPID GRP HDL TEST 38 MG/DL 07/28/2013 LIPID GRP TRIG 137 MG/DL 07/28/2013 LIPID GRP TEST LDL 73 MG/DL 07/28/2013 LIPID GRP CHOL 138 MG/DL 07/28/2013 LIPID GRP RCHOL/HDL 3.63 RATIO 07/28/2013 LIVER PNL 6423814 BILI DIR 0.2 MG/DL 07/28/2013 DIGOXIN 3046691 DIGOXIN 0.4 NG/ML 07/28/2013 CBC 7045960 WBC 7.2 10e9/L 07/28/2013 CBC 9277943 RBC 4.65 10e12/L 07/28/2013 CBC 5924337 HGB 12.6 g/dL 07/28/2013 CBC 5687826 HCT DET 39.6 % 07/28/2013 CBC 6972926 MCV 85.2 fL 07/28/2013 CBC 7694903 MCH 27.1 pg 07/28/2013 CBC 0544093 MCHC 31.8 g/dL 07/28/2013 CBC 7694025 PLT 344 10e9/L 07/28/2013 CBC 6665983 MPV 10.7 fL 07/28/2013 CBC 5296565 TIM % 61.4 % 07/28/2013 CBC 1621017 LY % 22.4 % 07/28/2013 CBC 3692391 MON % 8.4 % 07/28/2013 CBC 4007335 EOS % 6.8 % 07/28/2013 CBC 7860088 BASO % 1.0 % 07/28/2013 CBC 6395411 RDW 15.5 % 07/28/2013 CBC 2536891 ABS TIM 4.42 10e9/L 07/28/2013 CBC 1233816 ABS LYMPH 1.61 10e9/L 07/28/2013 CBC 8963609 ABS MONO 0.60 10e9/L 07/28/2013 CBC 0511255 ABS EOS 0.49 10e9/L 07/28/2013 CBC 0292290 ABS BASO 0.07 10e9/L 07/28/2013 CBC 2167826 RDW-SD 47.2 fL 07/28/2013 GFR CALC 9019392 GFR AA >60 ML/MIN 07/28/2013 GFR CALC 7458341 GFR NON-AA >60 ML/MIN 07/28/2013 CHEM 14 3716376 AST 20 U/L 07/28/2013 CHEM 14 8350084 ALT 19 IU/L 07/28/2013 CHEM 14 7182906 BUN 13 MG/DL 07/28/2013 CHEM 14 3707313 ALBUMIN 4.1 GM/DL 07/28/2013 CHEM 14 8609658 CHLORIDE 102 MMOL/L 07/28/2013 CHEM 14 9267162 BILI TOT 0.7 MG/DL 07/28/2013 CHEM 14 4508445 ALK PHOS 62 U/L 07/28/2013 CHEM 14 9803942 SODIUM 139 MMOL/L 07/28/2013 CHEM 14 0910529 CREATININE 0.66 MG/DL 07/28/2013 CHEM 14 0872122 CALCIUM 9.3 MG/DL 07/28/2013 CHEM 14 3515088 POTASSIUM 4.4 MMOL/L 07/28/2013 CHEM 14 4824725 PROT TOT 6.2 GM/DL 07/28/2013 CHEM 14 2374235 GLUCOSE 160 MG/DL 07/28/2013 CHEM 14 9869559 BICARB 29 MMOL/L 07/28/2013 CHEM 14 6923280 ANION GAP 8 MEQ/L 07/28/2013 DIGOXIN 3543586 DIGOXIN 0.6 NG/ML 05/12/2013 GFR CALC 5321889 GFR AA >60 ML/MIN 04/29/2013 GFR CALC 0330309 GFR NON-AA >60 ML/MIN 04/29/2013 A1C 5233037 A1C HPLC 69665- 6 7.5 % 04/29/2013 TSH 6642126 TSH 1.161 uIU/ML 04/29/2013 CHEM 14 9462246 AST 14 U/L 04/29/2013 CHEM 14 4636889 ALT 14 IU/L 04/29/2013 CHEM 14 7640824 BUN 13 MG/DL 04/29/2013 CHEM 14 9159886 ALBUMIN 4.1 GM/DL 04/29/2013 CHEM 14 6027912 CHLORIDE 102 MMOL/L 04/29/2013 CHEM 14 5226427 BILI TOT 0.7 MG/DL 04/29/2013 CHEM 14 0900950 ALK PHOS 75 U/L 04/29/2013 CHEM 14 5811263 SODIUM 139 MMOL/L 04/29/2013 CHEM 14 9039830 CREATININE 0.62 MG/DL 04/29/2013 CHEM 14 5834193 CALCIUM 9.3 MG/DL 04/29/2013 CHEM 14 5171028 POTASSIUM 4.0 MMOL/L 04/29/2013 CHEM 14 7921134 PROT TOT 6.5 GM/DL 04/29/2013 CHEM 14 0366543 GLUCOSE 152 MG/DL 04/29/2013 CHEM 14 7804133 BICARB 31 MMOL/L 04/29/2013 CHEM 14 0355798 ANION GAP 6 MEQ/L 04/29/2013 CBC 2510330 WBC 7.4 10e9/L 04/29/2013 CBC 0096675 RBC 4.70 10e12/L 04/29/2013 CBC 2385523 HGB 12.8 g/dL 04/29/2013 CBC 1588669 HCT DET 40.1 % 04/29/2013 CBC 1754643 MCV 85.3 fL 04/29/2013 CBC 7926468 MCH 27.2 pg 04/29/2013 CBC 8136436 MCHC 31.9 g/dL 04/29/2013 CBC 6263418 PLT 312 10e9/L 04/29/2013 CBC 2413655 MPV 10.4 fL 04/29/2013 CBC 9851506 TIM % 64.9 % 04/29/2013 CBC 4692864 LY % 20.0 % 04/29/2013 CBC 5131296 MON % 8.6 % 04/29/2013 CBC 8064416 EOS % 5.3 % 04/29/2013 CBC 4250395 BASO % 1.2 % 04/29/2013 CBC 6394589 RDW 15.4 % 04/29/2013 CBC 7320885 ABS TIM 4.80 10e9/L 04/29/2013 CBC 1315997 ABS LYMPH 1.48 10e9/L 04/29/2013 CBC 0187982 ABS MONO 0.64 10e9/L 04/29/2013 CBC 5863349 ABS EOS 0.39 10e9/L 04/29/2013 CBC 3936485 ABS BASO 0.09 10e9/L 04/29/2013 CBC 3497224 RDW-SD 47.3 fL 04/29/2013 LIPID GRP HDL TEST 43 MG/DL 04/29/2013 LIPID GRP TRIG 111 MG/DL 04/29/2013 LIPID GRP TEST LDL 65 MG/DL 04/29/2013 LIPID GRP CHOL 130 MG/DL 04/29/2013 LIPID GRP RCHOL/HDL 3.02 RATIO 04/29/2013 TSH 6711644 TSH 1.406 uIU/ML 12/28/2012 A1C 8626862 A1C HPLC 61884- 6 7.2 % 12/28/2012 LIPID GRP HDL TEST 54 MG/DL 12/27/2012 LIPID GRP TRIG 94 MG/DL 12/27/2012 LIPID GRP TEST LDL 42 MG/DL 12/27/2012 LIPID GRP CHOL 115 MG/DL 12/27/2012 LIPID GRP RCHOL/HDL 2.13 RATIO 12/27/2012 GFR CALC 5206418 GFR AA >60 ML/MIN 12/27/2012 GFR CALC 2332340 GFR NON-AA >60 ML/MIN 12/27/2012 CHEM 14 20280111 AST 14 U/L 12/27/2012 CHEM 14 7687530 ALT 13 IU/L 12/27/2012 CHEM 14 3394280 BUN 13 MG/DL 12/27/2012 CHEM 14 5136512 ALBUMIN 4.5 GM/DL 12/27/2012 CHEM 14 9808944 CHLORIDE 105 MMOL/L 12/27/2012 CHEM 14 2167638 BILI TOT 0.8 MG/DL 12/27/2012 CHEM 14 6255902 ALK PHOS 69 U/L 12/27/2012 CHEM 14 2154714 SODIUM 142 MMOL/L 12/27/2012 CHEM 14 1197660 CREATININE 0.73 MG/DL 12/27/2012 CHEM 14 6125043 CALCIUM 9.7 MG/DL 12/27/2012 CHEM 14 9681320 POTASSIUM 4.1 MMOL/L 12/27/2012 CHEM 14 0096750 PROT TOT 6.8 GM/DL 12/27/2012 CHEM 14 9667626 GLUCOSE 133 MG/DL 12/27/2012 CHEM 14 4843552 BICARB 30 MMOL/L 12/27/2012 CHEM 14 4477720 ANION GAP 7 MEQ/L 12/27/2012 CBC 9403448 WBC 6.8 10e9/L 12/27/2012 CBC 3612737 RBC 4.72 10e12/L 12/27/2012 CBC 1025627 HGB 12.5 g/dL 12/27/2012 CBC 1599577 HCT DET 39.6 % 12/27/2012 CBC 5166750 MCV 83.9 fL 12/27/2012 CBC 6675272 MCH 26.5 pg 12/27/2012 CBC 5971164 MCHC 31.6 g/dL 12/27/2012 CBC 8834261 PLT 336 10e9/L 12/27/2012 CBC 8537032 MPV 10.4 fL 12/27/2012 CBC 1987957 TIM % 60.7 % 12/27/2012 CBC 1321760 LY % 24.6 % 12/27/2012 CBC 9704544 MON % 8.4 % 12/27/2012 CBC 3254998 EOS % 5.3 % 12/27/2012 CBC 5346251 BASO % 1.0 % 12/27/2012 CBC 0566357 RDW 16.6 % 12/27/2012 CBC 7993230 ABS TIM 4.13 10e9/L 12/27/2012 CBC 7377968 ABS LYMPH 1.67 10e9/L 12/27/2012 CBC 2033679 ABS MONO 0.57 10e9/L 12/27/2012 CBC 5106376 ABS EOS 0.36 10e9/L 12/27/2012 CBC 6444783 ABS BASO 0.07 10e9/L 12/27/2012 CBC 5391917 RDW-SD 50.1 fL 12/27/2012 GFR CALC 7553993 GFR AA >60 ML/MIN 08/27/2012 GFR CALC 6175782 GFR NON-AA >60 ML/MIN 08/27/2012 CHEM 14 6113914 AST 15 U/L 08/27/2012 CHEM 14 4376748 ALT 17 IU/L 08/27/2012 CHEM 14 8120716 BUN 14 MG/DL 08/27/2012 CHEM 14 9451635 ALBUMIN 4.2 GM/DL 08/27/2012 CHEM 14 9627600 CHLORIDE 103 MMOL/L 08/27/2012 CHEM 14 9226137 BILI TOT 0.6 MG/DL 08/27/2012 CHEM 14 5699725 ALK PHOS 86 U/L 08/27/2012 CHEM 14 2080737 SODIUM 141 MMOL/L 08/27/2012 CHEM 14 7043397 CREATININE 0.64 MG/DL 08/27/2012 CHEM 14 5819897 CALCIUM 9.5 MG/DL 08/27/2012 CHEM 14 4869384 POTASSIUM 4.1 MMOL/L 08/27/2012 CHEM 14 4557415 PROT TOT 6.1 GM/DL 08/27/2012 CHEM 14 9436239 GLUCOSE 151 MG/DL 08/27/2012 CHEM 14 5239705 BICARB 30 MMOL/L 08/27/2012 CHEM 14 1692031 ANION GAP 8 MEQ/L 08/27/2012 FREE T4 6149133 FREE T4 1.36 NG/DL 08/27/2012 CBC 3985605 WBC 7.8 10e9/L 08/27/2012 CBC 3636869 RBC 4.54 10e12/L 08/27/2012 CBC 9475597 HGB 12.0 g/dL 08/27/2012 CBC 1020806 HCT DET 37.9 % 08/27/2012 CBC 5227399 MCV 83.5 fL 08/27/2012 CBC 3591330 MCH 26.4 pg 08/27/2012 CBC 3652011 MCHC 31.7 g/dL 08/27/2012 CBC 1838509 PLT 370 10e9/L 08/27/2012 CBC 7620686 MPV 10.7 fL 08/27/2012 CBC 3327581 TIM % 65.7 % 08/27/2012 CBC 9194117 LY % 19.5 % 08/27/2012 CBC 2115958 MON % 9.0 % 08/27/2012 CBC 2013260 EOS % 5.0 % 08/27/2012 CBC 2764486 BASO % 0.8 % 08/27/2012 CBC 0377527 RDW 15.4 % 08/27/2012 CBC 2402492 ABS TIM 5.12 10e9/L 08/27/2012 CBC 3849732 ABS LYMPH 1.52 10e9/L 08/27/2012 CBC 0746463 ABS MONO 0.70 10e9/L 08/27/2012 CBC 8613165 ABS EOS 0.39 10e9/L 08/27/2012 CBC 8788803 ABS BASO 0.06 10e9/L 08/27/2012 CBC 1391660 RDW-SD 46.3 fL 08/27/2012 A1C HPLC 6104111 A1C HPLC 41259-6 7.3 % 08/27/2012 LIPID GRP HDL TEST 41 MG/DL 08/27/2012 LIPID GRP TRIG 120 MG/DL 08/27/2012 LIPID GRP TEST LDL 67 MG/DL 08/27/2012 LIPID GRP CHOL 132 MG/DL 08/27/2012 LIPID GRP RCHOL/HDL 3.22 RATIO 08/27/2012 TSH 5912664 TSH 0.933 uIU/ML 08/27/2012 DIGOXIN 3748879 DIGOXIN 1.4 NG/ML 07/15/2012 CBC 5848533 WBC 6.3 10e9/L 07/15/2012 CBC 8083828 RBC 4.44 10e12/L 07/15/2012 CBC 7995315 HGB 11.8 g/dL 07/15/2012 CBC 7328492 HCT DET 36.9 % 07/15/2012 CBC 8669629 MCV 83.1 fL 07/15/2012 CBC 3151674 MCH 26.6 pg 07/15/2012 CBC 9627771 MCHC 32.0 g/dL 07/15/2012 CBC 9669897 PLT 316 10e9/L 07/15/2012 CBC 9625411 MPV 10.3 fL 07/15/2012 CBC 7224678 TIM % 64.4 % 07/15/2012 CBC 3914771 LY % 19.6 % 07/15/2012 CBC 1108843 MON % 9.1 % 07/15/2012 CBC 1655832 EOS % 6.1 % 07/15/2012 CBC 5512708 BASO % 0.8 % 07/15/2012 CBC 3748018 RDW 15.3 % 07/15/2012 CBC 6847978 ABS TIM 4.06 10e9/L 07/15/2012 CBC 7997196 ABS LYMPH 1.23 10e9/L 07/15/2012 CBC 3622924 ABS MONO 0.57 10e9/L 07/15/2012 CBC 1275189 ABS EOS 0.38 10e9/L 07/15/2012 CBC 0000041 ABS BASO 0.05 10e9/L 07/15/2012 CBC 0857875 RDW-SD 46.2 fL 07/15/2012 DIGOXIN 4465758 DIGOXIN 1.4 NG/ML 07/04/2012 BMP GLUCOSE 137 MG/DL 07/04/2012 BMP CREATININE 0.86 MG/DL 07/04/2012 BMP BUN 14 MG/DL 07/04/2012 BMP SODIUM 140 MMOL/L 07/04/2012 BMP POTASSIUM 4.5 MMOL/L 07/04/2012 BMP CHLORIDE 103 MMOL/L 07/04/2012 BMP BICARB 28 MMOL/L 07/04/2012 BMP ANION GAP 9 MEQ/L 07/04/2012 BMP CALCIUM 9.7 MG/DL 07/04/2012 CBC 1165234 WBC 6.9 10e9/L 07/04/2012 CBC 5549457 RBC 4.56 10e12/L 07/04/2012 CBC 0621309 HGB 12.2 g/dL 07/04/2012 CBC 1425291 HCT DET 38.1 % 07/04/2012 CBC 0127177 MCV 83.6 fL 07/04/2012 CBC 2822767 MCH 26.8 pg 07/04/2012 CBC 0562170 MCHC 32.0 g/dL 07/04/2012 CBC 5115570 PLT 382 10e9/L 07/04/2012 CBC 8925628 MPV 10.6 fL 07/04/2012 CBC 0037402 TIM % 58.7 % 07/04/2012 CBC 3820400 LY % 23.7 % 07/04/2012 CBC 1668339 MON % 10.2 % 07/04/2012 CBC 8808748 EOS % 6.4 % 07/04/2012 CBC 7707820 BASO % 1.0 % 07/04/2012 CBC 3035497 RDW 15.8 % 07/04/2012 CBC 4092254 ABS TIM 4.05 10e9/L 07/04/2012 CBC 2819383 ABS LYMPH 1.64 10e9/L 07/04/2012 CBC 0832993 ABS MONO 0.70 10e9/L 07/04/2012 CBC 9723436 ABS EOS 0.44 10e9/L 07/04/2012 CBC 8884586 ABS BASO 0.07 10e9/L 07/04/2012 CBC 9062413 RDW-SD 47.5 fL 07/04/2012 GFR CALC 4114806 GFR AA >60 ML/MIN 07/04/2012 GFR CALC 1963344 GFR NON-AA >60 ML/MIN 07/04/2012 A1C HPLC 1819192 A1C HPLC 19978-5 7.1 % 03/27/2012 GFR CALC 5642087 GFR AA >60 ML/MIN 03/26/2012 GFR CALC 4183695 GFR NON-AA >60 ML/MIN 03/26/2012 LIPID GRP HDL TEST 40 MG/DL 03/26/2012 LIPID GRP TRIG 93 MG/DL 03/26/2012 LIPID GRP TEST LDL 62 MG/DL 03/26/2012 LIPID GRP CHOL 121 MG/DL 03/26/2012 LIPID GRP RCHOL/HDL 3.03 RATIO 03/26/2012 TSH 9635664 TSH 0.842 uIU/ML 03/26/2012 FREE T4 4328660 FREE T4 1.30 NG/DL 03/26/2012 CBC 3441422 WBC 5.3 10e9/L 03/26/2012 CBC 6210311 RBC 4.70 10e12/L 03/26/2012 CBC 3203388 HGB 12.1 g/dL 03/26/2012 CBC 7985073 HCT DET 38.1 % 03/26/2012 CBC 6340481 MCV 81.1 fL 03/26/2012 CBC 9070505 MCH 25.7 pg 03/26/2012 CBC 9173228 MCHC 31.8 g/dL 03/26/2012 CBC 2147694 PLT 315 10e9/L 03/26/2012 CBC 0944886 MPV 10.9 fL 03/26/2012 CBC 4883856 TIM % 54.8 % 03/26/2012 CBC 7296848 LY % 25.8 % 03/26/2012 CBC 0164590 MON % 11.6 % 03/26/2012 CBC 5612468 EOS % 7.0 % 03/26/2012 CBC 1944959 BASO % 0.8 % 03/26/2012 CBC 1998101 RDW 16.7 % 03/26/2012 CBC 9738924 ABS TIM 2.90 10e9/L 03/26/2012 CBC 7121743 ABS LYMPH 1.37 10e9/L 03/26/2012 CBC 6217368 ABS MONO 0.61 10e9/L 03/26/2012 CBC 7976880 ABS EOS 0.37 10e9/L 03/26/2012 CBC 8002572 ABS BASO 0.04 10e9/L 03/26/2012 CBC 6445689 RDW-SD 48.8 fL 03/26/2012 CHEM 14 8504997 AST 18 U/L 03/26/2012 CHEM 14 5189102 ALT 17 IU/L 03/26/2012 CHEM 14 5348719 BUN 16 MG/DL 03/26/2012 CHEM 14 4560038 ALBUMIN 4.3 GM/DL 03/26/2012 CHEM 14 1003026 CHLORIDE 103 MMOL/L 03/26/2012 CHEM 14 2805827 BILI TOT 0.9 MG/DL 03/26/2012 CHEM 14 8729913 ALK PHOS 79 U/L 03/26/2012 CHEM 14 5361216 SODIUM 140 MMOL/L 03/26/2012 CHEM 14 7292776 CREATININE 0.70 MG/DL 03/26/2012 CHEM 14 7749148 CALCIUM 9.6 MG/DL 03/26/2012 CHEM 14 9869988 POTASSIUM 4.1 MMOL/L 03/26/2012 CHEM 14 6704305 PROT TOT 6.3 GM/DL 03/26/2012 CHEM 14 3515365 GLUCOSE 142 MG/DL 03/26/2012 CHEM 14 5437895 BICARB 29 MMOL/L 03/26/2012 CHEM 14 2376193 ANION GAP 8 MEQ/L 03/26/2012 LIPID GRP HDL TEST 42 MG/DL 01/08/2012 LIPID GRP 8332932 TRIG 105 MG/DL 01/08/2012 LIPID GRP 4440020 TEST LDL 51 MG/DL 01/08/2012 LIPID GRP 3039381 CHOL 114 MG/DL 01/08/2012 LIPID GRP 3928614 RCHOL/HDL 2.71 RATIO 01/08/2012 CHEM 14 9192895 AST 24 U/L 01/08/2012 CHEM 14 9107057 ALT 28 IU/L 01/08/2012 CHEM 14 0706111 BUN 15 MG/DL 01/08/2012 CHEM 14 9359609 ALBUMIN 4.3 GM/DL 01/08/2012 CHEM 14 1947814 CHLORIDE 104 MMOL/L 01/08/2012 CHEM 14 8949829 BILI TOT 0.6 MG/DL 01/08/2012 CHEM 14 1062813 ALK PHOS 83 U/L 01/08/2012 CHEM 14 0956912 SODIUM 141 MMOL/L 01/08/2012 CHEM 14 9339285 CREATININE 0.64 MG/DL 01/08/2012 CHEM 14 6515002 CALCIUM 9.4 MG/DL 01/08/2012 CHEM 14 3454596 POTASSIUM 4.0 MMOL/L 01/08/2012 CHEM 14 4973387 PROT TOT 6.7 GM/DL 01/08/2012 CHEM 14 7048552 GLUCOSE 145 MG/DL 01/08/2012 CHEM 14 9786004 BICARB 28 MMOL/L 01/08/2012 CHEM 14 5109031 ANION GAP 9 MEQ/L 01/08/2012 CBC 3865428 WBC 5.8 10e9/L 01/08/2012 CBC 8989475 RBC 4.36 10e12/L 01/08/2012 CBC 6765754 HGB 11.6 g/dL 01/08/2012 CBC 3588734 HCT DET 37.4 % 01/08/2012 CBC 0128612 MCV 85.8 fL 01/08/2012 CBC [id number] MCH 26.6 pg 01/08/2012 CBC [id number] MCHC 31.0 g/dL 01/08/2012 CBC [id number] PLT 319 10e9/L 01/08/2012 CBC 6508071 MPV 10.5 fL 01/08/2012 CBC [id number] TIM % 62.2 % 01/08/2012 CBC 1714330 LY % 20.7 % 01/08/2012 CBC 2050232 MON % 9.3 % 01/08/2012 CBC 4015975 EOS % 6.4 % 01/08/2012 CBC [id number] BASO % 1.4 % 01/08/2012 CBC 6105089 RDW 14.9 % 01/08/2012 CBC 9350333 ABS TIM 3.61 10e9/L 01/08/2012 CBC 7190128 ABS LYMPH 1.20 10e9/L 01/08/2012 CBC 6636103 ABS MONO 0.54 10e9/L 01/08/2012 CBC 0874049 ABS EOS 0.37 10e9/L 01/08/2012 CBC 1950126 ABS BASO 0.08 10e9/L 01/08/2012 CBC 2858349 RDW-SD 44.9 fL 01/08/2012 GFR CALC 9267781 GFR AA >60 ML/MIN 01/08/2012 GFR CALC 6133758 GFR NON-AA >60 ML/MIN 01/08/2012 A1C HPLC [id number] A1C HPLC 33820-7 7.2 % 01/08/2012 Review of Systems System [...] time 05/12/2013 None Full Exam - General [facility] Psychiatric mood and affect Overall: normal mood [...] Codes Date URINALYSIS NONAUTO W/O SCOPE CPT-4: 06820 12/31/2017 OCCULT BLOOD FECES CPT- 4: 19214 11/28/2017 TRIAMCINOLONE ACET INJ NOS CPT-4: J3301 10/30/2017 REMOVAL OF IMPACTED WAX CPT-4: G0268 05/29/2017 THER/PROPH/DIAG INJ SC/IM CPT-4: 60679 05/14/2017 KETOROLAC TROMETHAMINE INJ CPT-4: J1885 05/14/2017 ADMIN INFLUENZA VIRUS VAC CPT-4: G0008 04/30/2017 FLU VACC PRSV FREE INC ANTIG CPT-4: 85811 04/30/2017 THER/PROPH/DIAG INJ SC/IM CPT-4: 74120 03/06/2017 TRIAMCINOLONE ACET INJ NOS CPT-4: J3301 03/06/2017 THER/PROPH/DIAG INJ SC/IM CPT-4: 42424 09/04/2016 TRIAMCINOLONE ACET INJ NOS CPT-4: J3301 09/04/2016 THER/PROPH/DIAG INJ SC/IM CPT-4: 69948 11/11/2015 TRIAMCINOLONE ACET INJ NOS CPT-4: J3301 11/11/2015 TRIAMCINOLONE ACET INJ NOS CPT-4: J3301 10/25/2015 THER/PROPH/DIAG INJ SC/IM CPT-4: 45325 10/25/2015 THER/PROPH/DIAG INJ SC/IM CPT-4: 45200 08/17/2014 TRIAMCINOLONE ACET INJ NOS CPT-4: J3301 08/17/2014 TRIAMCINOLONE ACET INJ NOS CPT-4: J3301 04/13/2014 THER/PROPH/DIAG INJ SC/IM CPT-4: 53436 04/13/2014 ROUTINE VENIPUNCTURE CPT- 4: 52674 11/04/2013 ROUTINE VENIPUNCTURE CPT- 4: 25235 05/12/2013 ADMIN INFLUENZA VIRUS VAC CPT-4: G0008 05/12/2013 FLULAVAL VACC, 3 YRS & >, IM CPT-4: Q2036 05/12/2013 TRIAMCINOLONE ACET INJ NOS CPT-4: J3301 10/07/2012 THER/PROPH/DIAG INJ SC/IM CPT-4: 66169 10/07/2012 ROUTINE VENIPUNCTURE CPT- 4: 84744 08/27/2012 ROUTINE VENIPUNCTURE CPT- 4: 76941 07/15/2012 ROUTINE VENIPUNCTURE CPT- 4: 49613 03/26/2012 ADMIN INFLUENZA VIRUS VAC CPT-4: G0008 03/26/2012 FLULAVAL VACC, 3 YRS & >, IM CPT-4: Q2036 03/26/2012 Pneumococcal Polysaccharide Vaccine, 23-Valent, Ad CPT-4: 77793 03/26/2012 ROUTINE VENIPUNCTURE CPT- 4: 26700 01/08/2012 ROUTINE VENIPUNCTURE CPT- 4: 36306 11/06/2011 ROUTINE VENIPUNCTURE CPT- 4: 41203 10/25/2011 ROUTINE VENIPUNCTURE CPT- 4: 34399 10/16/2011 ROUTINE VENIPUNCTURE CPT- 4: 14075 09/25/2011 INJ TRIGGER POINT 1/2 MUSCL CPT-4: 82082 07/31/2011 TRIAMCINOLONE ACET INJ NOS CPT-4: J3301 07/31/2011 PRESCRIP TRANSMIT VIA ERX SY CPT-4: G8553 05/22/2011 ADMIN INFLUENZA VIRUS VAC CPT-4: G0008 05/02/2011 FLULAVAL VACC, 3 YRS & >, IM CPT-4: Q2036 05/02/2011 ROUTINE VENIPUNCTURE CPT- 4: 28964 05/02/2011 Vital Signs Date Vital 05/27/2018 Blood Pressure 1: 128/76 Code: 8480-6 BMI: 28.9 Code: 38022-4 Heart Rate 1: 74 bpm Height: 5'1" SpO2: 99% Weight: 153 lbs 01/21/2018 Blood Pressure 1: 132/78 Code: 8480-6 BMI: 28.7 Code: 25517-2 Heart Rate 1: 112 bpm Height: 5'1" SpO2: 98% Weight: 152 lbs 12/04/2017 Blood Pressure 1: 140/74 Code: 8480-6 BMI: 27.6 Code: 45751-7 Heart Rate 1: 76 bpm Height: 5'1" SpO2: 97% Weight: 146 lbs 11/13/2017 Blood Pressure 1: 166/78 Code: 8480-6 BMI: 27.4 Code: 97749-3 Heart Rate 1: 78 bpm Height: 5'1" SpO2: 98% Weight: 145 lbs 10/30/2017 Blood Pressure 1: 148/72 Code: 8480-6 BMI: 27.8 Code: 21962-5 Heart Rate 1: 92 bpm Height: 5'1" SpO2: 96% Weight: 147 lbs 09/20/2017 Blood Pressure 1: 146/68 Code: 8480-6 BMI: 28.2 Code: 30735-7 Heart Rate 1: 66 bpm Height: 5'1" SpO2: 99% Weight: 149 lbs 05/29/2017 Blood Pressure 1: 156/82 Code: 8480-6 BMI: 28.7 Code: 86610-1 Heart Rate 1: 71 bpm Height: 5'1" SpO2: 96% Weight: 152 lbs 05/14/2017 Blood Pressure 1: 150/88 Code: 8480-6 BMI: 28.5 Code: 12965-5 Heart Rate 1: 71 bpm Height: 5'1" SpO2: 98% Weight: 151 lbs 03/06/2017 Blood Pressure 1: 148/66 Code: 8480-6 BMI: 28.5 Code: 14520-5 Heart Rate 1: 78 bpm Height: 5'1" SpO2: 98% Weight: 151 lbs 11/01/2016 Blood Pressure 1: 150/84 Code: 8480-6 BMI: 29.1 Code: 84840-1 Heart Rate 1: 71 bpm Height: 5'1" SpO2: 97% Weight: 154 lbs 10/18/2016 Blood Pressure 1: 156/98 Code: 8480-6 Heart Rate 1: 68 bpm Height: 5'1" SpO2: 98% Weight: 10/12/2016 Blood Pressure 1: 142/76 Code: 8480-6 BMI: 30.0 Code: 00429-4 Heart Rate 1: 76 bpm Height: 5'1" SpO2: 95% Weight: 159 lbs 09/04/2016 Blood Pressure 1: 120/70 Code: 8480-6 Blood Pressure 1: 148/84 Code: 8480-6 BMI: 30.0 Code: 27545-0 Heart Rate 1: 72 bpm Height: 5'1" SpO2: 94% Weight: 159 lbs 05/30/2016 Blood Pressure 1: 152/84 Code: 8480-6 BMI: 29.9 Code: 94862-3 Heart Rate 1: 76 bpm Height: 5'1" SpO2: 97% Weight: 158 lbs 8 oz 05/01/2016 Blood Pressure 1: 146/60 Code: 8480-6 BMI: 29.9 Code: 88724-7 Heart Rate 1: 72 bpm Height: 5'1" SpO2: 97% Weight: 158 lbs 02/29/2016 Blood Pressure 1: 152/82 Code: 8480-6 BMI: 30.4 Code: 86572-5 Heart Rate 1: 71 bpm Height: 5'1" SpO2: 96% Weight: 161 lbs 02/03/2016 Blood Pressure 1: 148/88 Code: 8480-6 BMI: 30.6 Code: 09681-7 Heart Rate 1: 72 bpm Height: 5'1" SpO2: 98% Weight: 162 lbs 12/21/2015 Blood Pressure 1: 180/78 Code: 8480-6 BMI: 30.9 Code: 47154-7 Heart Rate 1: 64 bpm Height: 5'1" SpO2: 97% Weight: 163 lbs 8 oz 10/25/2015 Blood Pressure 1: 150/78 Code: 8480-6 BMI: 31.0 Code: 41963-8 Heart Rate 1: 73 bpm Height: 5'1" SpO2: 98% Weight: 164 lbs 10/19/2015 Blood Pressure 1: 122/72 Code: 8480-6 BMI: 31.6 Code: 20673-7 Heart Rate 1: 88 bpm Height: 5'1" SpO2: 98% Weight: 167 lbs 06/22/2015 Blood Pressure 1: 150/82 Code: 8480-6 BMI: 31.4 Code: 62761-8 Heart Rate 1: 86 bpm Height: 5'1" SpO2: 96% Weight: 166 lbs 12/22/2014 Blood Pressure 1: 160/92 Code: 8480-6 BMI: 31.2 Code: 26283-3 Heart Rate 1: 85 bpm Height: 5'1" SpO2: 97% Weight: 165 lbs 08/17/2014 Blood Pressure 1: 138/80 Code: 8480-6 BMI: 31.6 Code: 05668-3 Heart Rate 1: 77 bpm Height: 5'1" SpO2: 97% Weight: 167 lbs 04/13/2014 Blood Pressure 1: 144/88 Code: 8480-6 BMI: 31.6 Code: 40771-5 Heart Rate 1: 90 bpm Height: 5'1" Weight: 167 lbs 12/11/2013 Blood Pressure 1: 168/90 Code: 8480-6 BMI: 32.3 Code: 22241-8 Heart Rate 1: 72 bpm Height: 5'1" Weight: 171 lbs 11/10/2013 Blood Pressure 1: 150/80 Code: 8480-6 BMI: 32.3 Code: 48788-7 Heart Rate 1: 76 bpm Height: 5'1" Weight: 171 lbs 08/11/2013 Blood Pressure 1: 152/80 Code: 8480-6 BMI: 32.5 Code: 25632-1 Heart Rate 1: 92 bpm Height: 5'1" Temperature: 36.7 (C) / 98.0 (F) Weight: 172 lbs 05/12/2013 Blood Pressure 1: 142/102 Code: 8480-6 Blood Pressure 2: 144/98 Code: 8480-6 BMI: 34.2 Code: 74365-6 Heart Rate 1: 80 bpm Height: 5'1" Weight: 181 lbs 01/06/2013 Blood Pressure 1: 138/76 Code: 8480-6 BMI: 34.6 Code: 99974-6 Heart Rate 1: 64 bpm Height: 5'1" Weight: 183 lbs 10/07/2012 Blood Pressure 1: 146/76 Code: 8480-6 BMI: 35.6 Code: 51240-8 Heart Rate 1: 76 bpm Height: 5'1" Respiratory Rate: 20 bpm Weight: 188 lbs 8 oz 09/11/2012 Blood Pressure 1: 158/92 Code: 8480-6 BMI: 35.7 Code: 38834-0 Heart Rate 1: 76 bpm Height: 5'1" Weight: 189 lbs 07/15/2012 Blood Pressure 1: 158/100 Code: 8480-6 BMI: 36.3 Code: 02363-5 Heart Rate 1: 72 bpm Height: 5'1" Respiratory Rate: 20 bpm Weight: 192 lbs 05/02/2012 Blood Pressure 1: 156/80 Code: 8480-6 BMI: 35.9 Code: 13896-8 Heart Rate 1: 72 bpm Height: 5'1" Weight: 190 lbs 03/28/2012 Blood Pressure 1: 133/88 Code: 8480-6 Heart Rate 1: 78 bpm Weight: 189 lbs 11/27/2011 Blood Pressure 1: 178/80 Code: 8480-6 BMI: 36.7 Code: 36959-3 Heart Rate 1: 72 bpm Height: 5'1" Respiratory Rate: 20 bpm Weight: 194 lbs 10/25/2011 Blood Pressure 1: 122/62 Code: 8480-6 BMI: 37.0 Code: 85859-5 Heart Rate 1: 80 bpm Height: 5'1" [...] 2: / Code: 8480-6 BMI: 37.1 Code: 77684-1 Heart Rate 1: 72 bpm Height: 5'1" Respiratory Rate: 16 bpm SpO2: % Temperature: .0 (C) / 32.0 (F) Weight: 196 lbs 8 oz 05/22/2011 Blood Pressure 1: 147/71 Code: 8480-6 BMI: 18.7 Code: 23707-2 Heart Rate 1: 77 bpm Height: 7'1" Weight: 192 lbs 05/05/2011 Blood Pressure 1: 178/88 Code: 8480-6 BMI: 37.4 Code: 58349-5 Heart Rate 1: 80 bpm Height: 5' [...] Present Encounters Encounter Performer Location Codes Date ([id number]) 25442 EST. PATIENT, LEVEL IV Diagnosis: Type 2 diabetes mellitus with hyperglycemia[ICD10: E11.65] Diagnosis: Atrophy of thyroid (acquired)[ICD10: E03.4] Clarice Elaine MD, [facility] CPT-4: 33728 05/27/2018 ([id number]) 44651 EST. PATIENT, LEVEL IV Diagnosis: Type 2 diabetes mellitus without complications[ICD10: E11.9] Diagnosis: Paroxysmal atrial fibrillation[ICD10: I48.0] Diagnosis: Essential (primary) hypertension[ICD10: I10] Clarice Elaine MD, [facility] CPT-4: 43363 01/21/2018 [id number]) 22728 EST. PATIENT, LEVEL III Diagnosis: Paroxysmal atrial fibrillation[ICD10: I48.0] Diagnosis: Other specified anemias[ICD10: D64.89] Clarice Elaine MD, [facility] CPT-4: 86951 12/04/2017 [id number]) 60415 EST. PATIENT, LEVEL IV Diagnosis: Benign paroxysmal vertigo, bilateral[ICD10: H81.13] Diagnosis: Essential (primary) hypertension[ICD10: I10] Diagnosis: Other fatigue[ICD10: R53.83] Diagnosis: Other specified anemias[ICD10: D64.89] Diagnosis: Other allergic rhinitis[ICD10: J30.89] Socorro Elaine MD, [facility] CPT-4: 25862 11/13/2017 [id number]) 42478 EST. PATIENT, LEVEL III Diagnosis: Mild intermittent asthma with (acute) exacerbation[ICD10: J45.21] Diagnosis: Cough[ICD10: R05] [facility] CPT-4: 83545 10/30/2017 ([id number]) 87616 EST. PATIENT, LEVEL IV Diagnosis: Gastro-esophageal reflux disease without esophagitis[ICD10: K21.9] Diagnosis: Type 2 diabetes mellitus without complications[ICD10: E11.9] Diagnosis: Other specified anemias[ICD10: D64.89] Diagnosis: Paroxysmal atrial fibrillation[ICD10: I48.0] Socorro Ealine MD [facility] CPT-4: 86258 09/20/2017 ([id number]) 02922 EST. PATIENT, LEVEL III Diagnosis: Essential (primary) hypertension[ICD10: I10] Clarice Elaine MD [facility] CPT-4: 81228 05/29/2017 ([id number]) 74753 EST. PATIENT, LEVEL III Diagnosis: Acute bronchitis due to other specified organisms[ICD10: J20.8] Diagnosis: Cough[ICD10: R05] Diagnosis: Other chest pain[ICD10: R07.89] Clarice Elaine MD [facility] CPT-4: 48088 05/14/2017 ([id number]) 94437 EST. PATIENT, LEVEL IV Diagnosis: Type 2 diabetes mellitus with hyperglycemia[ICD10: E11.65] Diagnosis: Essential (primary) hypertension[ICD10: I10] Diagnosis: Mild intermittent asthma with (acute) exacerbation[ICD10: J45.21] Clarice Elaine MD [facility] CPT-4: 95396 03/06/2017 ([id number]) 94238 EST. 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 PATIENT, LEVEL III Diagnosis: Mild intermittent asthma with (acute) exacerbation[ICD10: J45.21] Diagnosis: Gastro-esophageal reflux disease without esophagitis[ICD10: K21.9] Jayne Elaine MD, [facility] CPT-4: 34774 10/12/2016 ([id number]) 76791 EST. PATIENT, LEVEL IV Diagnosis: Type 2 diabetes mellitus with hyperglycemia[ICD10: E11.65] Diagnosis: Essential (primary) hypertension[ICD10: I10] Diagnosis: Mild intermittent asthma with (acute) exacerbation[ICD10: J45.21] Clarice Elaine MD [facility] CPT-4: 99348 09/04/2016 77028 EST. PATIENT, LEVEL III Diagnosis: Pain in left ankle and joints of left foot[ICD10: M25.572] Diagnosis: Localized edema[ICD10: R60.0] Jayne Elaine MD, [facility] CPT-4: 28203 05/30/2016 ([id number]) 75379 EST. PATIENT, LEVEL III Diagnosis: Type 2 diabetes mellitus with hyperglycemia[ICD10: E11.65] Clarice Elaine MD [facility] CPT-4: 54442 05/01/2016 ([id number]) 63916 EST. PATIENT, LEVEL IV Diagnosis: Type 2 diabetes mellitus without complications[ICD10: E11.9] Diagnosis: Moderate persistent asthma, uncomplicated[ICD10: J45.40] Diagnosis: Paroxysmal atrial fibrillation[ICD10: I48.0] Clarice Elaine MD [facility] CPT-4: 13163 02/29/2016 ([id number]) 08966 EST. PATIENT, LEVEL IV Diagnosis: Paroxysmal atrial fibrillation[ICD10: I48.0] Diagnosis: Hypothyroidism, unspecified[ICD10: E03.9] Diagnosis: Type 2 diabetes mellitus without complications[ICD10: E11.9] Diagnosis: Essential (primary) hypertension[ICD10: I10] Diagnosis: Acute maxillary sinusitis, unspecified[ICD10: J01.00] Diagnosis: Moderate persistent asthma, uncomplicated[ICD10: J45.40] Clarice Elaine MD [facility] CPT-4: 81067 02/03/2016 ([id number]) 02497 EST. PATIENT, LEVEL IV Diagnosis: Type 2 diabetes mellitus without complications[ICD10: E11.9] Diagnosis: Hypothyroidism, unspecified[ICD10: E03.9] Diagnosis: Moderate persistent asthma, uncomplicated[ICD10: J45.40] Diagnosis: Essential (primary) hypertension[ICD10: I10] Clarice Elaine MD, [facility] CPT-4: 57885 12/21/2015 ([id number]) 07278 EST. 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 PATIENT, LEVEL IV Diagnosis: Type 2 diabetes mellitus without complications[ICD10: E11.9] Diagnosis: Essential (primary) hypertension[ICD10: I10] Diagnosis: Hypothyroidism, unspecified[ICD10: E03.9] Clarice Elaine MD, [facility] CPT-4: 19090 06/22/2015 ([id number]) 41973 EST. PATIENT, LEVEL IV Diagnosis: ESSENTIAL HYPERTENSION[ICD9: 401.9] Diagnosis: DIABETES TYPE II[ICD9: 250.00] [facility] CPT-4: 03971 12/22/2014 ([id number]) 49909 EST. PATIENT, LEVEL IV Diagnosis: ACUTE BRONCHITIS[ICD9: 466.0] Diagnosis: Acute asthma exacerbation[ICD9: 493.92] Diagnosis: ESSENTIAL HYPERTENSION[ICD9: 401.9] Diagnosis: DIABETES TYPE II[ICD9: 250.00] [facility] CPT-4: 96078 08/17/2014 ([id number]) 06638 EST. PATIENT, LEVEL IV Diagnosis: DIABETES TYPE II[ICD9: 250.00] Diagnosis: ESSENTIAL HYPERTENSION[ICD9: 401.9] Diagnosis: Acute asthma exacerbation[ICD9: 493.92] [facility] CPT-4: 94384 04/13/2014 ([id number]) 86918 EST. PATIENT, LEVEL IV Diagnosis: DIABETES TYPE II[ICD9: 250.00] Diagnosis: ESSENTIAL HYPERTENSION[ICD9: 401.9] Diagnosis: HYPOTHYROIDISM[ICD9: 244.9] Clarice Elaine MD [facility] CPT-4: 07742 12/11/2013 ([id number]) 30180 EST. PATIENT, LEVEL IV Diagnosis: DM W/O COMPLICATION TYPE II, UNCONTROLLED[ICD9: 250.02] Diagnosis: ESSENTIAL HYPERTENSION[ICD9: 401.9] Clarice Elaine MD [facility] CPT- 4: 23391 11/10/2013 ([id number]) 04400 EST. PATIENT, LEVEL IV Diagnosis: DM W/O COMPLICATION TYPE II, UNCONTROLLED[SNOMED: 96179616] Diagnosis: ESSENTIAL HYPERTENSION[SNOMED: 36085129] Diagnosis: ACUTE BRONCHITIS[ICD9: 466.0] Clarice Elaine MD [facility] CPT-4: 41817 08/11/2013 ([id number]) 31299 EST. PATIENT, LEVEL IV Diagnosis: DM W/O COMPLICATION TYPE II, UNCONTROLLED[SNOMED: 16129185] Diagnosis: ATRIAL FIBRILLATION[ICD9: 427.31] Diagnosis: ESSENTIAL HYPERTENSION[SNOMED: 77908675] Clarice Elaine MD [facility] CPT-4: 51872 05/12/2013 ([id number]) 44426 EST. PATIENT, LEVEL IV Diagnosis: DM W/O COMPLICATION TYPE II, UNCONTROLLED[SNOMED: 80801050] Diagnosis: ESSENTIAL HYPERTENSION[SNOMED: 84210375] Clarice Elaine MD [facility] CPT-4: 28386 01/06/2013 ([id number]) 20599 EST. PATIENT, LEVEL IV Diagnosis: DIABETES TYPE II[SNOMED: 609229600] Diagnosis: ESSENTIAL HYPERTENSION[SNOMED: 97523240] Diagnosis: Acute asthma exacerbation[ICD9: 493.92] Diagnosis: Fatigue[ICD9: 780.79] Clarice lEaine MD [facility] CPT-4: 84364 10/07/2012 ([id number]) 39851 EST. PATIENT, LEVEL IV Diagnosis: DM W/O COMPLICATION TYPE II, UNCONTROLLED[SNOMED: 34712789] Diagnosis: Lump of breast, right[ICD9: 611.72] Diagnosis: Lump on neck[ICD9: 784.2] Clarice Elaine MD, [facility] CPT-4: 38075 09/11/2012 ([id number]) 48552 EST. PATIENT, LEVEL IV Diagnosis: ESSENTIAL HYPERTENSION[SNOMED: 47515473] Diagnosis: Atrial fibrillation[ICD9: 427.31] Diagnosis: Fatigue[ICD9: 780.79] Diagnosis: Encounter for monitoring digoxin therapy[ICD9: V58.83] Clarice Elaine MD, [facility] CPT-4: 58164 07/15/2012 ([id number]) 67454 EST. PATIENT, LEVEL IV Diagnosis: DIABETES TYPE II[SNOMED: 145926243] Diagnosis: ESSENTIAL HYPERTENSION[SNOMED: 72507596] Clarice Elaine MD, [facility] CPT-4: 13366 05/02/2012 ([id number]) 44780 EST. PATIENT, LEVEL IV Diagnosis: DM W/O COMPLICATION TYPE II, UNCONTROLLED[SNOMED: 58894010] Diagnosis: ESSENTIAL HYPERTENSION[SNOMED: 22664178] Diagnosis: HYPERLIPIDEMIA[ICD9: 272.4] Clarice Elaine MD, [facility] CPT-4: 14284 03/28/2012 ([id number]) 54781 EST. PATIENT, LEVEL IV Diagnosis: DM W/O COMPLICATION TYPE II, UNCONTROLLED[SNOMED: 33893954] Diagnosis: ESSENTIAL HYPERTENSION[SNOMED: 20652642] Clarice Elaine MD, [facility] CPT-4: 50862 11/27/2011 ([id number]) 11233 EST. PATIENT, LEVEL III Diagnosis: ESSENTIAL HYPERTENSION[SNOMED: 02100944] Diagnosis: ANEMIA[ICD9: 285.9] Diagnosis: Gastritis[ICD9: 535.50] Clarice Elaine MD, [facility] CPT-4: 71047 10/25/2011 ([id number]) 81124 EST. PATIENT, LEVEL III Diagnosis: Anemia associated with acute blood loss[ICD9: 285.1] Diagnosis: Gastritis, acute with hemorrhage[ICD9: 535.01] Clarice Elaine MD, [facility] CPT-4: 03281 10/11/2011 ([id number]) 50697 EST. PATIENT, LEVEL IV Diagnosis: Hematochezia[ICD9: 578.1] Diagnosis: ENCNTR LONG-RX USE NEC[ICD9: V58.69] Diagnosis: Abdominal pain[ICD9: 789.00] Clarice Elaine MD, [facility] CPT-4: 05884 10/04/2011 ([id number]) 52321 EST. PATIENT, LEVEL IV Diagnosis: DIABETES TYPE II[SNOMED: 992785253] Diagnosis: ESSENTIAL HYPERTENSION[SNOMED: 83152373] Diagnosis: Coronary artery disease[ICD9: 414.00] Clarice Elaine MD, [facility] CPT-4: 14838 09/25/2011 ([id number]) 42866 EST. PATIENT, LEVEL IV Diagnosis: Muscle spasm[ICD9: 728.85] Diagnosis: Arthralgia[ICD9: 719.40] Diagnosis: ESSENTIAL HYPERTENSION[SNOMED: 33069564] Clarice Elaine MD, [facility] CPT-4: 45734 07/31/2011 31444 EST. PATIENT, LEVEL III Diagnosis: ACUTE SINUSITIS[ICD9: 461.9] Diagnosis: Cervicalgia[ICD9: 723.1] Socorro Elaine MD, [facility] CPT-4: 91839 05/22/2011 87875 EST. PATIENT, LEVEL IV Diagnosis: HYPERLIPIDEMIA[ICD9: 272.4] Diagnosis: HYPOTHYROIDISM[ICD9: 244.9] Diagnosis: DM W/O COMPLICATION TYPE II, UNCONTROLLED[SNOMED: 25065067] Clarice Elaine MD, [facility] CPT-4: 47797 05/05/2011 Plan of Care Planned Activity Notes [...] based on previous levels of control. 05/27/2018 Patient Education: Patient Medication Summary Completed [...] becoming uncontrolled. 01/21/2018 Appointment: Clarice Elaine WPtel: [facility]5 [facility] (15 min) Moderate 01/21/2018 Patient Education: Patient [...] venofer IV. 12/04/2017 Appointment: Clarice Elaine WPtel: [phone] [facility] (15 min) Moderate 12/04/2017 Patient Education: Patient [...] instructions/medication interventions. HTN- elevated today-monitor at home Uxgief-cpspuwb-kgfet labs Allergies-add flonase nasal spray 11/13/2017 Visit Plan: BPPV - Benign Paroxysmal Positional Vertigo - discussed diagnosis with the patient, offered the pt the appropriate additional information in hand-out. Pt instructed in home exercises to help alleviate and prevent future recurrent episodes of vertigo. Pt informed that if symptoms worsen, call the office for further instructions/medication interventions. HTN- elevated today-monitor at home Wphdcs-szyibjd-czosq labs Allergies-add flonase nasal spray 11/13/2017 Appointment: Socorro Salmeron WPtel: [phone] (30 min) Complex 11/13/2017 Patient Education: Patient [...] acute changes. 10/30/2017 Appointment: [phone] (30 min) Complex 10/30/2017 Patient Education: Patient Medication Summary Completed 10/30/2017 Appointment: Clarice Elaine WPtel: [phone] [facility] [place] (15 min) Moderate 09/25/2017 Visit Plan: [...] Hgb A1C 09/20/2017 Appointment: Socorro Salmeron WPtel: [phone] [place] (30 min) Complex 09/20/2017 Patient Education: Patient Medication Summary Completed 09/20/2017 Appointment: Clarice Elaine WPtel: [facility]5 [facility] [place] (15 min) Moderate 06/26/2017 Visit Plan: [...] removal process. 05/29/2017 Appointment: Clarice Elaine WPtel: [phone] [facility] [place] (15 min) Moderate 05/29/2017 Patient Education: Patient Medication Summary Completed 05/29/2017 Patient Education: Hypertension Completed 05/29/2017 Visit Plan: Bronchitis - acute case of bronchitis identified. Pt has been given antibiotics, breathing treatments as appropriate, and pt has been instructed to call if symptoms are not improved, or if symptoms acutely worsen. Chest pain - chest wall - toradol shot hospira [id number] november 2018 05/14/2017 Visit Plan: Bronchitis - acute case of bronchitis identified. Pt has been given antibiotics, breathing treatments as appropriate, and pt has been instructed to call if symptoms are not improved, or if symptoms acutely worsen. Chest pain - chest wall - toradol shot hospira [id number] november 2018 05/14/2017 [phone] (15 min) Moderate 05/14/2017 Patient Education: [...] clinic today. 03/06/2017 Appointment: Clarice Elaine WPtel: [phone] [facility] (15 min) Moderate 03/06/2017 Patient Education: Patient Medication Summary Completed 03/06/2017 Patient Education: Hypertension Completed 03/06/2017 Appointment: Clarice Elaine WPtel: [facility]9 [facility] (15 min) Moderate 12/05/2016 Visit Plan: Hypertension [...] current treatment. 11/01/2016 Appointment: Clarice Elaine WPtel: [facility] (15 min) Moderate 11/01/2016 Patient Education: Patient [...] ACUTE ILLNESS. 10/18/2016 Appointment: Clarice Elaine WPtel: [facility]6 [facility] (15 min) Moderate 10/18/2016 Patient Education: Patient [...] acute changes 10/12/2016 Appointment: Jayne Ragland WPtel: [facility]4 [id number] (30 min) Complex 10/12/2016 Patient Education: [...] 09/04/2016 Appointment: Clarice Elaine WPtel: [phone] [facility] (15 min) Moderate 09/04/2016 Patient Education: Patient Medication Summary Completed 09/04/2016 Patient Education: Obesity Completed 09/04/2016 Patient Education: Hypertension Completed 09/04/2016 Appointment: Jayne Ragland WPtel: [phone] [facility] [facility] - Annual Wellness Visit 06/08/2016 Visit [...] glucose control. 05/01/2016 Appointment: Clarice Elaine WPtel: [facility]0 [address] (15 min) Moderate 05/01/2016 Patient Education: [...] changes 02/29/2016 Appointment: Clarice Elaine WPtel: [facility]1 [facility] Surgical Procedure 02/29/2016 Patient Education: Patient Medication [...] pressure readings. 12/21/2015 Appointment: Clarice Elaine WPtel: [address] [place], [place] [id number] (15 min) Moderate 12/21/2015 Patient Education: Patient [...] today 10/25/2015 Appointment: [phone] [place] (15 min) Moderate 10/25/2015 Patient Education: [...] ILLNESS. 10/19/2015 Appointment: [id number] [place] (30 min) Complex 10/19/2015 Patient [...] at home. 08/17/2014 Appointment: Clarice Elaine WPtel: [address] [place], [place] [id number] Follow up 08/17/2014 Patient Education: Patient Medication [...] albuterol. 04/13/2014 Appointment: Clarice Elaine WPtel: [phone] [facility] Follow up 04/13/2014 Patient Education: Patient Medication [...] control. 12/11/2013 Appointment: Clarice Elaine WPtel: [phone] [facility] Follow up 12/11/2013 Patient Education: Patient Medication [...] concerns. 11/10/2013 Appointment: Clarice Elaine [facility]Ptel[phone] [place] Follow up 11/10/2013 Patient Education: Patient Medication Summary Completed 11/10/2013 Patient Education: Hypertension Completed 11/10/2013 Appointment: Clarice Elaine [facility]Ptel[phone] [place] Lab Draw 11/04/2013 Patient Education: [...] pharmacy. 08/11/2013 Appointment: Clarice [facility]Ptel[phone] [place] Follow up 08/11/2013 Patient Education: [...] shot today 05/12/2013 Appointment: Clarice Elaine WPtel: [phone] [facility] Follow up 05/12/2013 Patient Education: Patient Medication [...] glucose control. 01/06/2013 Appointment: Clarice Elaine [facility]Ptel[phone] [facility] 01/06/2013 Patient Education: Patient [...] today. 10/07/2012 Appointment: Clarice Elaine [facility]Ptel[phone] [place] Follow up 10/07/2012 Patient Education: Patient [...] and ultrasound 09/11/2012 Appointment: Clarice Elaine WPtel: [phone] [facility] [place] Follow up 09/11/2012 Patient Education: Patient [...] digoxin level. 07/15/2012 Appointment: Clarice Elaine WPtel: [phone] [facility] Follow up 07/15/2012 Patient Education: Patient [...] with Plavix. 05/02/2012 Appointment: Clarice Elaine WPtel: [phone] Follow up 05/02/2012 Patient Education: Patient [...] ASPIRIN COMPELTELY. 03/28/2012 Appointment: Clarice Elaine WPtel: [address] [place], [place] [id number] Follow up 03/28/2012 Patient Education: Patient Medication [...] at home. 11/27/2011 Appointment: Clarice Elaine WPtel: [facility]5 [facility] Follow up 11/27/2011 Patient Education: Patient Medication Summary Completed 11/27/2011 Patient Education: High Blood Pressure: Essential Hypertension Completed 11/27/2011 Patient Education: Patient Medication Summary Completed 11/06/2011 Appointment: Clarice Elaine WPtel: [address] [place], [place] [phone] [place] Other 11/03/2011 Appointment: Clarice Elaine WPtel: [address] [place], [place] [phone] Other 11/02/2011 Appointment: Clarice Elaine WPtel: [address] [place], [place] [phone] Lab Draw 10/31/2011 Visit Plan: Hypertension - [...] times daily. 10/25/2011 Appointment: Clarice Elaine WPtel: [facility] Follow up 10/25/2011 Patient Education: Patient Medication Summary Completed 10/25/2011 Patient Education: High Blood Pressure: Essential Hypertension Completed 10/25/2011 Appointment: Clarice Elaine WPtel: [facility]3 [facility] Lab Draw 10/16/2011 Patient Education: Patient Medication [...] to 11.4 10/11/2011 Appointment: Clarice Elaine WPtel: [facility]7 [facility] Other 10/11/2011 Patient Education: Patient Medication Summary Completed 10/11/2011 Appointment: Clarice Elaine WPtel: [address] [place], [place] [phone] Other 10/10/2011 Visit Plan: Abdominal pain and [...] stable. 10/04/2011 Appointment: Clarice Elaine WPtel: [facility]5 [facility] Follow up 10/04/2011 Patient Education: Patient Medication [...] not improve. 09/25/2011 Appointment: Clarice Elaine WPtel: [address] [place] [address] Other 09/25/2011 Patient Education: Patient Medication Summary [...] not improve. 07/31/2011 Appointment: Clarice Elaine WPtel: [address] [place] [address] Other 07/31/2011 Patient Education: Patient Medication Summary [...] on use. 05/22/2011 Appointment: Socorro Salmeron WPtel: [phone] Other 05/22/2011 Patient Education: Patient Medication [...] dose increased. 05/05/2011 Appointment: Clarice Elaine WPtel: [facility]5 [facility] Other 05/05/2011 Patient Education: Patient Medication Summary Completed 05/05/2011 Patient Education: High Cholesterol Completed 05/05/2011 Appointment: Clarice Elaine WPtel: [facility]5 [facility] [place] Other 05/04/2011 Appointment: Clarice Elaine WPtel: [facility] Lab Draw 05/02/2011 Patient Education: Patient Medication [...] further instructions/medication interventions. HTN-elevated today-monitor at home Qttuju-[id number]-[id number] labs Allergies-add flonase nasal spray CHECK LABS [...] further instructions/medication interventions. HTN-elevated today-monitor at home Omtxrl-hvbscyh-[id number] labs Allergies-add flonase nasal spray . Hypertension [...] with Dr. Aguilar as previously scheduled. . Diabetes Mellitus - Uncontrolled - per [...] - [facility] . Diabetes [...] INSTEAD OF STOPPING THE ASPIRIN COMPELTELY. . Diabetes Mellitus - controlled - per [...] symbicort. Pt given steroid shot today. . GERD-continue protonix and carafate-low spice diet [...] - chest wall - toradol shot hospira [id number] november 2018 . Bronchitis - acute case of bronchitis identified. Pt has been given antibiotics, breathing treatments as appropriate, and pt has been instructed to call if symptoms are not improved, or if symptoms acutely worsen. Chest pain - chest wall - toradol shot [facility]ira [id number] november 2018 . Asthma Exacerbation - Asthma [...] for acute changes. kenalog shot today . Hypertension - well controlled [...] to become less controlled. . Diabetes Mellitus -fairly well controlled - [...] change in blood pressure readings at home. vital sox - calf size of 15 [...] their heart rate is becoming uncontrolled. . Diabetes Mellitus - controlled - per [...] months based on previous levels of control. Recommend claritin 10mg po daily at least [...] provided and instructed patient on use. . GI bleed secondary to the medication causing irritation to the stomach and it led to EROSIVE GASTRITIS.. The protonix is supposed to decrease the amount of acid in the stomach and preventing the medication and the acid from causing a hole in the stomach and further bleeding. Anemia- improved, the hemoglobin has improved from 10.6 to 11.4 . Hypertension - well controlled - continue [...] blood glucose control. metformin dose increased. . DM - uncontrolled due to need [...] call if symptoms do not improve. . Hypertension - well controlled - continue [...] carafate back to four times daily. . Abdominal pain and Hematochezia - I [...] HGB has remained stable. . Diabetes Mellitus - Uncontrolled - per [...]
[2018-12-28] MEDS ORDERED: DOXY100T2 PO (05:02)
[2018-12-28] MEDS ORDERED: BENZ-13 PO (05:02)
--- OUTSIDE RECORDS SUMMARY | 2018-12-28 05:05 | XMS REPORT | CCD ---
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 Unknown Has never used illegal drugs 05/05/2011 Allergies, Adverse Reactions, Alerts Substance Reaction Codes Entered Date Inactivated Date Status noroxin RxNorm: 7517 05/05/2011 No Inactive Date Active trovan RxNorm: 283031 05/05/2011 No Inactive Date Active * NO KNOWN FOOD ALLERGIES Unknown 05/05/2011 No Inactive Date Active PREDNISONE RxNorm: 8640 05/05/2011 No Inactive Date Active cephalexin RxNorm: 2231 05/05/2011 No Inactive Date Active theophylline RxNorm: 01654 05/05/2011 No Inactive Date Active azithromycin Unknown 10/11/2011 No Inactive Date Active Levaquin RxNorm: 51513 10/11/2011 No Inactive Date Active MORPHINE SULFATE RxNorm: 7052 10/11/2011 No Inactive Date Active METRONIDAZOLE Unknown 05/05/2011 No Inactive Date Active Past Medical History Illness Codes Condition Status Onset Date Resolved Date Essential (primary) hypertension ICD-9: 401.1 ICD-10: I10 [...] ICD-9: 250.02 ICD-10: E11.65 Active 11/10/2013 Unknown 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 [...] Dates Condition Status Essential (primary) hypertension ICD-9: 401.1 ICD-10: I10 [...] hyperglycemia ICD-9: 250.02 ICD-10: E11.65 11/10/2013 Active 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 [...] Date Stop Date Status Fill Instructions Synthroid 75 mcg tablet RxNorm: 361463 1 Tablet(s) PO daily 05/15/2018 11/10/2018 Active Synthroid 75 mcg tablet RxNorm: 858532 1 Tablet(s) PO daily 05/15/2018 05/14/2018 Inactive Synthroid 88 mcg tablet RxNorm: 607193 TAKE 1 TABLET BY MOUTH ONCE DAILY 04/08/2018 05/14/2018 Inactive amiodarone 200 mg tablet RxNorm: 382103 1/2 Tablet(s) PO BID 01/21/2018 No Stop Date Active Bactrim DS 800 mg-160 mg tablet RxNorm: 118806 1 Tablet(s) PO BID 01/03/2018 01/02/2018 Inactive take probiotic bid x 7 days Bactrim DS 800 mg-160 mg tablet RxNorm: 487249 1 Tablet(s) PO BID 01/03/2018 01/09/2018 Inactive take probiotic bid x 7 days nitrofurantoin 100 mg capsule RxNorm: 117083 1 Capsule(s) PO BID 12/31/2017 01/06/2018 Inactive nitrofurantoin 100 mg capsule RxNorm: 577486 1 Capsule(s) PO BID 12/31/2017 12/30/2017 Inactive nitrofurantoin 100 mg capsule RxNorm: 352724 1 Capsule(s) PO BID 12/31/2017 12/30/2017 Inactive glipizide 5 mg tablet RxNorm: 997853 TAKE ONE-HALF TABLET BY MOUTH TWICE DAILY 11/23/2017 No Stop Date Active meclizine 25 mg tablet RxNorm: 682293 1 Tablet(s) PO Q6 PRN 11/13/2017 No Stop Date Active Kenalog 40 mg/mL suspension for injection RxNorm: 9983865 1.5 Milliliter(s) Inj 10/30/2017 10/30/2017 Inactive Augmentin 875 mg-125 mg tablet RxNorm: 209270 1 Tablet(s) PO BID 10/30/2017 11/05/2017 Inactive Synthroid 88 mcg tablet RxNorm: 343611 TAKE ONE TABLET BY MOUTH ONCE DAILY 10/15/2017 04/07/2018 Inactive metformin 500 mg tablet RxNorm: 695393 TAKE ONE TABLET BY MOUTH WITH BREAKFAST AND ONE TABLET WITH LUNCH AND TWO TABLETS WITH SUPPER 10/15/2017 01/20/2018 Inactive albuterol sulfate 2.5 mg/3 mL (0.083 %) solution for nebulization RxNorm: 471720 USE ONE VIAL IN NEBULIZER 4 TIMES DAILY NEEDED FOR ASTHMA 08/16/2017 No Stop Date Active Plavix 75 mg tablet RxNorm: 709599 TAKE ONE TABLET BY MOUTH ONCE DAILY 06/25/2017 06/24/2017 Inactive Plavix 75 mg tablet RxNorm: 543480 1 Tablet(s) PO daily TAKE ONE TABLET BY MOUTH ONCE DAILY 06/25/2017 09/19/2017 Inactive acyclovir 800 mg tablet RxNorm: 768256 1 Tablet(s) PO QID 05/15/2017 05/14/2017 Inactive acyclovir 800 mg tablet RxNorm: 733181 1 Tablet(s) PO QID 05/15/2017 05/21/2017 Inactive tramadol 50 mg tablet RxNorm: 077295 1 Tablet(s) PO TID 05/15/2017 05/24/2017 Inactive ketorolac 60 mg/2 mL intramuscular solution RxNorm: 640818 2 Milliliter(s) IM 05/14/2017 05/14/2017 Inactive Augmentin 875 mg-125 mg tablet RxNorm: 844000 1 Tablet(s) PO BID 05/14/2017 05/23/2017 Inactive Synthroid 88 mcg tablet RxNorm: 137117 TAKE ONE TABLET BY MOUTH ONCE DAILY; NEED THYROID LABS DONE 04/16/2017 10/12/2017 Inactive Kenalog 40 mg/mL suspension for injection RxNorm: 3680454 Milliliter(s) Inj 03/06/2017 03/06/2017 Inactive metformin 500 mg tablet RxNorm: 464372 1 Tablet(s) UD 1 tab at breakfast, 1tab at lunch, 2 tab at supper 03/06/2017 09/01/2017 Inactive glipizide 5 mg tablet RxNorm: 108842 TAKE ONE-HALF TABLET BY MOUTH TWICE DAILY 02/23/2017 11/19/2017 Inactive Synthroid 88 mcg tablet RxNorm: 596504 Tablet(s) PO TAKE ONE TABLET BY MOUTH DAILY 01/17/2017 04/15/2017 Inactive Needs thyroid labs done Plavix 75 mg tablet RxNorm: 022778 TAKE ONE TABLET BY MOUTH ONCE DAILY 12/25/2016 06/22/2017 Inactive Kenalog 40 mg/mL suspension for injection RxNorm: 8386671 1.5 Milliliter(s) Inj 09/04/2016 09/04/2016 Inactive Janumet XR 100 mg-1,000 mg tablet,extended release RxNorm: 3897152 1 Tablet(s) PO daily 09/04/2016 03/02/2017 Inactive glipizide 5 mg tablet RxNorm: 943150 TAKE ONE-HALF TABLET BY MOUTH TWICE DAILY 08/24/2016 02/19/2017 Inactive Janumet XR 50 mg-1,000 mg tablet,extended release RxNorm: 7778728 TAKE ONE TABLET BY MOUTH ONCE DAILY 05/29/2016 09/03/2016 Inactive metoprolol tartrate 25 mg tablet RxNorm: 435018 1/4 Tablet(s) PO BID 05/01/2016 05/29/2016 Inactive glipizide 5 mg tablet RxNorm: 353992 TAKE ONE-HALF TABLET BY MOUTH TWICE DAILY 02/21/2016 08/18/2016 Inactive ProAir HFA 90 mcg/actuation aerosol inhaler RxNorm: 693990 2 Puff(s) INH PRN as needed ASTHMA 02/03/2016 03/03/2016 Inactive Accu-Chek Active Test strips RxNorm: 1 test Miscellaneous daily 02/03/2016 08/25/2019 Active DX250.00 albuterol sulfate 2.5 mg/3 mL (0.083 %) solution for nebulization RxNorm: 130020 1 Milliliter(s) INH QID as needed ASTHMA 02/03/2016 06/01/2016 Inactive Janumet XR 50 mg-1,000 mg tablet,extended release RxNorm: 3082202 1 Tablet(s) PO daily 02/03/2016 05/28/2016 Inactive Augmentin 875 mg-125 mg tablet RxNorm: 089745 1 Tablet(s) PO BID 02/03/2016 02/12/2016 Inactive sucralfate 1 gram tablet RxNorm: 770277 1 Tablet(s) PO QID - take 30 minutes before meals and before supper 12/21/2015 04/18/2016 Inactive metformin ER 500 mg tablet,extended release 24 hr RxNorm: 424449 1 Tablet(s) PO BID 12/21/2015 02/02/2016 Inactive digoxin 250 mcg tablet RxNorm: 782888 1 Tablet(s) PO daily 12/21/2015 01/20/2018 Inactive Synthroid 88 mcg tablet RxNorm: 010336 Tablet(s) PO TAKE ONE TABLET BY MOUTH DAILY 12/20/2015 01/16/2017 Inactive Plavix 75 mg tablet RxNorm: 842297 1 Tablet(s) PO daily 12/20/2015 12/13/2016 Inactive Kenalog 40 mg/mL suspension for injection RxNorm: 4904855 1 Milliliter(s) Inj 11/11/2015 11/11/2015 Inactive Kenalog 40 mg/mL suspension for injection RxNorm: 0643140 1 Milliliter(s) Inj 10/25/2015 10/25/2015 Inactive metformin 500 mg tablet RxNorm: 373013 2 Tablet(s) PO BID 07/16/2015 12/20/2015 Inactive metformin 500 mg tablet RxNorm: 237747 TAKE TWO TABLETS BY MOUTH TWICE DAILY 07/16/2015 12/20/2015 Inactive albuterol sulfate 2.5 mg/3 mL (0.083 %) solution for nebulization RxNorm: 462466 1 Milliliter(s) INH QID as needed ASTHMA 07/14/2015 11/10/2015 Inactive glipizide 5 mg tablet RxNorm: 668797 1/2 Tablet(s) PO BID 02/03/2015 01/28/2016 Inactive Symbicort 160 mcg-4.5 mcg/actuation HFA aerosol inhaler RxNorm: 8061350 1 INH 01/06/2015 No Stop Date Active metformin 500 mg tablet RxNorm: 928838 2 Tablet(s) PO BID 12/22/2014 06/19/2015 Inactive Plavix 75 mg tablet RxNorm: 722627 1 Tablet(s) PO daily 12/02/2014 11/26/2015 Inactive note directions of one per day Synthroid 88 mcg tablet RxNorm: 205047 1 Tablet(s) PO daily TAKE ONE TABLET BY MOUTH DAILY 12/02/2014 04/07/2018 Inactive Accu-Chek Active Test strips RxNorm: 1 test Miscellaneous daily 08/17/2014 02/02/2016 Inactive DX250.00 Kenalog 40 mg/mL suspension for injection RxNorm: 8040338 Milliliter(s) Inj 08/17/2014 08/17/2014 Inactive doxycycline hyclate 100 mg tablet RxNorm: 849021 1 Tablet(s) PO BID 08/17/2014 08/26/2014 Inactive albuterol sulfate 2.5 mg/3 mL (0.083 %) solution for nebulization RxNorm: 990626 1 Milliliter(s) INH QID as needed ASTHMA 08/17/2014 08/16/2014 Inactive albuterol sulfate 2.5 mg/3 mL (0.083 %) solution for nebulization RxNorm: 047767 1 Milliliter(s) INH QID as needed ASTHMA 08/17/2014 12/14/2014 Inactive doxycycline hyclate 100 mg tablet RxNorm: 991524 1 Tablet(s) PO BID 08/17/2014 08/16/2014 Inactive Accu-Chek Multiclix Lancet RxNorm: 1 Miscellaneous daily TEST BLOOD SUGAR EVERY DAY 08/17/2014 09/10/2015 Inactive DX 250.00 metformin 500 mg tablet RxNorm: 208936 TAKE TWO TABLETS BY MOUTH TWICE DAILY 06/23/2014 09/20/2014 Inactive metformin 500 mg tablet RxNorm: 346974 2 Tablet(s) PO BID 06/22/2014 12/18/2014 Inactive Bactrim DS 800 mg-160 mg tablet RxNorm: 827380 1 Tablet(s) PO BID 05/11/2014 05/17/2014 Inactive Bactrim DS 800 mg-160 mg tablet RxNorm: 735584 1 Tablet(s) PO BID 05/11/2014 05/10/2014 Inactive Kenalog 40 mg/mL suspension for injection RxNorm: 1527828 Milliliter(s) Inj 04/13/2014 04/13/2014 Inactive Accu-Chek Active Test strips RxNorm: 1 TEST MISCELLANEOUS BID 04/06/2014 10/22/2014 Inactive glipizide 5 mg tablet RxNorm: 813088 1/2 Tablet(s) PO BID 03/03/2014 02/02/2015 Inactive Synthroid 88 mcg tablet RxNorm: 674787 1 Tablet(s) PO daily TAKE ONE TABLET BY MOUTH DAILY 12/11/2013 12/01/2014 Inactive Plavix 75 mg tablet RxNorm: 115647 1 Tablet(s) PO daily 12/11/2013 12/01/2014 Inactive note directions of one per day glipizide 5 mg tablet RxNorm: 781274 1/2 Tablet(s) PO BID 11/10/2013 03/02/2014 Inactive Lipitor 10 mg tablet RxNorm: 400055 1 Tablet(s) PO daily 11/10/2013 12/21/2014 Inactive Accu-Chek Active Test strips RxNorm: strip miscellaneous TEST BLOOD SUGAR EVERY DAY 11/03/2013 No Stop Date Active Accu-Chek Multiclix Lancet RxNorm: misc miscellaneous TEST BLOOD SUGAR EVERY DAY 08/07/2013 08/16/2014 Inactive Accu-Chek Active Test strips RxNorm: strip miscellaneous TEST BLOOD SUGAR EVERY DAY 08/05/2013 No Stop Date Active digoxin 125 mcg tablet RxNorm: 443032 1 Tablet(s) PO daily 08/05/2013 10/28/2014 Inactive metformin 500 mg tablet RxNorm: 002002 2 Tablet(s) PO BID 06/12/2013 06/21/2014 Inactive metformin 500 mg tablet RxNorm: 847584 2 Tablet(s) PO BID 05/12/2013 06/11/2013 Inactive metformin 500 mg tablet RxNorm: 476332 Tablet(s) PO TAKE ONE & ONE-HALF TABLETS BY MOUTH TWICE DAILY 04/10/2013 05/11/2013 Inactive Synthroid 88 mcg tablet RxNorm: 953737 Tablet(s) PO TAKE ONE TABLET BY MOUTH DAILY 01/07/2013 12/19/2015 Inactive Synthroid 88 mcg tablet RxNorm: 459584 1 Tablet(s) PO daily TAKE ONE TABLET BY MOUTH DAILY 01/06/2013 12/10/2013 Inactive Plavix 75 mg tablet RxNorm: 387552 1 Tablet(s) PO daily 12/09/2012 12/03/2013 Inactive note directions of one per day Lipitor 80 mg tablet RxNorm: 812354 Tablet(s) PO TAKE 1 TABLET BY MOUTH EVERY DAY 10/28/2012 11/09/2013 Inactive Synthroid 88 mcg tablet RxNorm: 417965 Tablet(s) PO TAKE ONE TABLET BY MOUTH DAILY 10/07/2012 10/06/2012 Inactive Synthroid 88 mcg tablet RxNorm: 102972 1 Tablet(s) PO daily TAKE ONE TABLET BY MOUTH DAILY 10/07/2012 01/05/2013 Inactive Kenalog 40 mg/mL Susp for Injection RxNorm: 5509604 1 Milliliter(s) IM 10/07/2012 10/07/2012 Inactive digoxin 250 mcg tablet RxNorm: 8611213 1/2 Tablet(s) PO daily 07/15/2012 08/04/2013 Inactive Synthroid 88 mcg tablet RxNorm: 902699 Tablet(s) PO TAKE ONE TABLET BY MOUTH DAILY 06/28/2012 10/06/2012 Inactive Accu-Chek Multiclix Lancet RxNorm: Misc Miscellaneous 06/05/2012 No Stop Date Active TEST BLOOD SUGAR EVERY DAY Accu-Chek Active Test Strips RxNorm: Strip Miscellaneous 06/05/2012 No Stop Date Active TEST BLOOD SUGAR EVERY DAY Lipitor 80 mg tablet RxNorm: 100662 1/2 Tablet(s) PO daily 03/28/2012 No Stop Date Active TAKE 1 TABLET BY MOUTH EVERY DAY metformin 500 mg tablet RxNorm: 381200 1.5 Tablet(s) PO BID 03/28/2012 04/09/2013 Inactive Lipitor 80 mg tablet RxNorm: 289507 1/2 Tablet(s) PO 03/28/2012 08/16/2014 Inactive TAKE 1 TABLET BY MOUTH EVERY DAY Lipitor 80 mg tablet RxNorm: 749493 1/2 Tablet(s) PO daily 03/28/2012 No Stop Date Active TAKE 1 TABLET BY MOUTH EVERY DAY Influenza Virus Vaccine 0.5 mL RxNorm: IM 03/26/2012 03/26/2012 Inactive Pneumovax 23 25 mcg/0.5 mL Injection RxNorm: 571163 Milliliter(s) Inj 03/26/2012 03/26/2012 Inactive metformin 500 mg tablet RxNorm: 690026 1 Tablet(s) PO BID 11/27/2011 03/27/2012 Inactive Plavix 75 mg tablet RxNorm: 385975 1 Tablet(s) PO daily 11/01/2011 11/24/2012 Inactive note directions of one per day Lipitor 80 mg tablet RxNorm: 193267 Tablet(s) PO 10/18/2011 03/27/2012 Inactive TAKE 1 TABLET BY MOUTH EVERY DAY Protonix 40 mg Tab RxNorm: 956059 1 Tablet(s) PO BID 10/11/2011 12/20/2015 Inactive Accu-Chek Active Test Strips RxNorm: 1 test Miscellaneous daily 10/04/2011 08/16/2014 Inactive Carafate 1 gram Tab RxNorm: 941294 1 Tablet(s) PO QID 10/02/2011 10/31/2011 Inactive Carafate 1 gram Tab RxNorm: 022171 1 Tablet(s) PO TID 09/29/2011 09/28/2011 Inactive Carafate 1 gram Tab RxNorm: 972866 1 Tablet(s) PO TID 09/29/2011 10/01/2011 Inactive Kenalog 40 mg/mL Susp for Injection RxNorm: 7145363 2 Milliliter(s) Inj 07/31/2011 07/31/2011 Inactive Synthroid 88 mcg tablet RxNorm: 697279 1 Tablet(s) PO daily 06/06/2011 10/11/2011 Inactive Accu-Chek Active Test Strips RxNorm: 1 test Miscellaneous BID 06/05/2011 10/03/2011 Inactive Accu-Chek Multiclix Lancet RxNorm: 1 test Miscellaneous BID 06/02/2011 09/24/2011 Inactive Accu-Chek Active Test strips RxNorm: 1 test Miscellaneous BID 06/02/2011 06/04/2011 Inactive Bactrim DS 800 mg-160 mg Tab RxNorm: 013166 1 Tablet(s) PO BID 05/22/2011 05/31/2011 Inactive metformin 500 mg Tab RxNorm: 674182 1 Tablet(s) PO TID 05/05/2011 10/31/2011 Inactive Influenza Virus Vaccine 0.5 mL RxNorm: IM 05/02/2011 05/02/2011 Inactive albuterol sulfate HFA 90 mcg/Actuation Aerosol Inhaler RxNorm: 932066 1 Puff(s) INH PRN prn shortness of breath No Start Date Active Xarelto 20 mg tablet RxNorm: 8486682 1 Tablet(s) PO daily No Start Date Active pantoprazole 40 mg tablet,delayed release RxNorm: 798764 1 Tablet(s) PO daily No Start Date Active Singulair 10 mg tablet RxNorm: 479149 1 Tablet(s) PO daily No Start Date Active multivitamin chewable tablet RxNorm: 1 Tablet(s) PO daily No Start Date Active Fish Oil 300 mg-1,000 mg capsule RxNorm: 463907 1 Capsule(s) PO occasional No Start Date Active hyoscyamine 0.125 mg sublingual tablet RxNorm: 0400443 1 Tablet(s) SL Q6 No Start Date Active Cartia XT 120 mg capsule,extended release RxNorm: 952542 1 Capsule(s) PO daily and 1 QPM if HR above [address] Dr Aguilar manages No Start Date Active simvastatin 20 mg tablet RxNorm: 634036 1/2 Tablet(s) PO daily No Start Date 12/20/2015 Inactive Zantac 75 75 mg Tab RxNorm: 099564 2 Tablet(s) PO daily No Start Date 12/20/2015 Inactive Protonix 40 mg Tab RxNorm: 085005 1 Tablet(s) PO daily No Start Date 10/10/2011 Inactive Fish Oil 1,000 mg capsule RxNorm: 3 Capsule(s) PO daily No Start Date 12/20/2015 Inactive amiodarone 400 mg tablet RxNorm: 152792 1 Tablet(s) PO daily No Start Date 12/09/2017 Inactive digoxin 125 mcg tablet RxNorm: 8857285 1 Tablet(s) PO daily No Start Date 08/04/2013 Inactive Brilinta 90 mg Tab RxNorm: 5832575 1 Tablet(s) PO daily No Start Date 10/10/2011 Inactive Fish Oil 1,000 mg Cap RxNorm: 3 Capsule(s) PO daily No Start Date 12/21/2015 Inactive Flintstones Complete 18 mg iron chewable tablet RxNorm: 2 Tablet(s) PO daily No Start Date 12/20/2015 Inactive Niaspan Extended-Release 500 mg 24 hr Tab RxNorm: 6617533 1 Tablet(s) PO daily No Start Date 09/24/2011 Inactive samples tramadol 50 mg tablet RxNorm: 532521 1 Tablet(s) PO TID No Start Date 05/14/2017 Inactive aspirin 81 mg Cap, Delayed Release RxNorm: 804326 Capsule(s) PO daily No Start Date 05/01/2012 Inactive metformin 500 mg Tab RxNorm: 083681 1 Tablet(s) PO BID No Start Date 05/04/2011 Inactive Prilosec OTC 20 mg tablet,delayed release RxNorm: 150196 1 Tablet(s) PO daily No Start Date 10/31/2016 Inactive Zantac 150 mg Tab RxNorm: 511266 1 Tablet(s) PO BID No Start Date 10/10/2011 Inactive Synthroid 88 mcg Tab RxNorm: 768411 1 Tablet(s) PO daily No Start Date 06/05/2011 Inactive Plavix 75 mg Tab RxNorm: 921101 1 Tablet(s) PO daily No Start Date 10/31/2011 Inactive amiodarone 200 mg tablet RxNorm: 198042 1 Tablet(s) PO BID No Start Date 01/20/2018 Inactive aspirin 81 mg Cap, Delayed Release RxNorm: 931608 1 Capsule(s) PO daily No Start Date 10/01/2011 Inactive Lipitor 80 mg Tab RxNorm: 517076 1 Tablet(s) PO daily No Start Date 10/17/2011 Inactive Symbicort 160 mcg-4.5 mcg/Actuation HFA Aerosol Inhaler RxNorm: 2667675 1 INH No Start Date 01/05/2015 Inactive Medication Administered Medication Codes Instructions Start Date Status Kenalog 40 mg/mL suspension for injection RxNorm: 3048536 1.5Milliliter 10/30/2017 No longer Active ketorolac 60 mg/2 mL intramuscular solution RxNorm: 531462 2Milliliter 05/14/2017 No longer Active Kenalog 40 mg/mL suspension for injection RxNorm: 1882973 Milliliter 03/06/2017 No longer Active Kenalog 40 mg/mL suspension for injection RxNorm: 5611439 1.5Milliliter 09/04/2016 No longer Active Kenalog 40 mg/mL suspension for injection RxNorm: 2306518 1Milliliter 11/11/2015 No longer Active Kenalog 40 mg/mL suspension for injection RxNorm: 5868002 1Milliliter 10/25/2015 No longer Active Kenalog 40 mg/mL suspension for injection RxNorm: 7223520 Milliliter 08/17/2014 No longer Active Kenalog 40 mg/mL suspension for injection RxNorm: 9052103 Milliliter 04/13/2014 No longer Active Kenalog 40 mg/mL Susp for Injection RxNorm: 7196271 1Milliliter 10/07/2012 No longer Active Pneumovax 23 25 mcg/0.5 mL Injection RxNorm: 323911 Milliliter 03/26/2012 No longer Active Influenza Virus Vaccine 0.5 mL RxNorm: 03/26/2012 No longer Active Kenalog 40 mg/mL Susp for Injection RxNorm: 5029692 2Milliliter 07/31/2011 No longer Active Influenza Virus [...] 05/05/2010 completed Assessments Condition Codes Effective Dates Type 2 diabetes mellitus without complications ICD-10: [...] for immunization ICD-10: Z23 ICD-9: V04.81 04/30/2017 Type 2 diabetes mellitus with hyperglycemia ICD-10: [...] Reason For Visit Effective Dates Notes hypertension 01/21/2018 dizziness 12/04/2017 dizziness 11/13/2017 cough [...] Item Item Code Result Date Free T4 Zou069 FREE T4 1.66 ng/dL 05/09/2018 Tsh Ord6 [...] 18.0 % 05/09/2018 Cbc With Differential Ord2 [place]% 11.6 % 05/09/2018 Cbc With Differential Ord2 [...] 1.18 K/ul 05/09/2018 Cbc With Differential Ord2 [place] ABS# 0.8 K/ul 05/09/2018 Cbc With Differential [...] Metabolic Ord15 CALCIUM 9.3 mg/dL 05/09/2018 %Hba1C Jqz474 % HbA1c 25056- 6 8.9 % 05/09/2018 %Hba1C Pqb930 Gluc Ave 209 mg/dL 05/09/2018 LIPID GRP CHOLESTEROL 184 mg/dL 01/14/2018 LIPID GRP Triglyceride 65 mg/dL 01/14/2018 LIPID GRP HDL CHOLESTEROL 53 mg/dL 01/14/2018 LIPID GRP Chol/HDL Ratio 3.47 ratio 01/14/2018 LIPID GRP NON-HDL Chol 131 mg/dL 01/14/2018 LIPID GRP [id number] LDL Cholesterol 118 mg/dL 01/14/2018 A1C HPLC 6645695 Hgb A1c 66395-9 6.5 % 01/14/2018 CBC 2901174 WBC 5.8 10e9/L 01/14/2018 CBC 7311375 RBC 4.67 10e12/L 01/14/2018 CBC 8806333 HEMOGLOBIN 12.4 g/dL 01/14/2018 CBC 5909011 HEMATOCRIT 40.6 % 01/14/2018 CBC 3163422 MCV 86.9 fL 01/14/2018 CBC 8350723 MCH 26.6 pg 01/14/2018 CBC 8597215 MCHC 30.5 g/dL 01/14/2018 CBC 5803695 PLATELET COUNT 419 10e9/L 01/14/2018 CBC 8431238 Mean Plt Volume 10.1 fL 01/14/2018 CBC 1300651 Neut Auto 60.7 % 01/14/2018 CBC 3425256 Lymph Auto 24.8 % 01/14/2018 CBC 0334408 [place] Auto 9.7 % 01/14/2018 CBC 3999431 RDW 25.0 % 01/14/2018 CBC 6093279 Eos Auto 3.4 % 01/14/2018 CBC 5787591 Baso Auto 1.4 % 01/14/2018 CBC 9356221 Neutrophil Abs 3.52 10e9/L 01/14/2018 CBC 6829686 Lymphocyte Abs 1.44 10e9/L 01/14/2018 CBC 8033131 Monocyte Abs 0.56 10e9/L 01/14/2018 CBC 1252487 Eosinophil Abs 0.20 10e9/L 01/14/2018 CBC 5128223 Basophil Abs 0.08 10e9/L 01/14/2018 CBC 5882998 RDW-SD 75.4 fL 01/14/2018 MEAN GLUC 0050732 Calc Mean Gluc 140 mg/dL 01/14/2018 Culture Urine [id number] URINE CULTURE SEE NOTES 01/03/2018 Culture Urine [id number] Continued Results 01/03/2018 Urine Culture Ucult Complete [...] 24.8 pg 11/20/2017 Cbc With Differential Ord2 [place]% 7.9 % 11/20/2017 Cbc With Differential Ord2 [...] 1.65 K/ul 11/20/2017 Cbc With Differential Ord2 [place] ABS# 0.7 K/ul 11/20/2017 Cbc With Differential Ord2 Eos ABS# 0.3 K/ul 11/20/2017 Cbc With Differential Ord2 Baso ABS# 0.1 K/ul 11/20/2017 Comp Metabolic Myg914 NA 142 mEq/L 11/20/2017 Comp Metabolic Ujs831 K 4.1 mEq/L 11/20/2017 Comp Metabolic Avb664 CL 104 mEq/L 11/20/2017 Comp Metabolic Osr131 CO2 29.0 mEq/L 11/20/2017 Comp Metabolic Awc650 ANION GAP 13 11/20/2017 Comp Metabolic Qrb199 GLUCOSE 178 mg/dL 11/20/2017 Comp Metabolic Vme346 Creat 0.6 mg/dL 11/20/2017 Comp Metabolic Lso269 eGFR 112 ml/min/1.73m2 11/20/2017 Comp Metabolic Rdt410 BUN 19 mg/dL 11/20/2017 Comp Metabolic Hrj091 B/C Ratio 33.9 Ratio 11/20/2017 Comp Metabolic Erg883 CALCIUM 9.3 mg/dL 11/20/2017 Comp Metabolic Qqk824 ALK PHOS 60 U/L 11/20/2017 Comp Metabolic Zvl451 AST(SGOT) 13 U/L 11/20/2017 Comp Metabolic Vsg484 ALT(SGPT) 14 U/L 11/20/2017 Comp Metabolic Vld497 BILI T 0.4 mg/dL 11/20/2017 Comp Metabolic Odl009 ALBUMIN 4.1 g/dL 11/20/2017 Comp Metabolic Zzj990 TPRO 6.0 g/dL 11/20/2017 Comp Metabolic Syn426 GLOB 1.9 g/dL 11/20/2017 Comp Metabolic Isb152 A/G Ratio 2.2 Ratio 11/20/2017 Comp Metabolic Jax528 Osmo 290 mOsmo 11/20/2017 Cbc With Differential [...] 24.8 pg 11/13/2017 Cbc With Differential Ord2 [place]% 7.8 % 11/13/2017 Cbc With Differential Ord2 [...] 1.57 K/ul 11/13/2017 Cbc With Differential Ord2 [place] ABS# 0.8 K/ul 11/13/2017 Cbc With Differential Ord2 Eos ABS# 0.3 K/ul 11/13/2017 Cbc With Differential Ord2 Baso ABS# 0.1 K/ul 11/13/2017 Comp Metabolic Fqe348 NA 142 mEq/L 11/13/2017 Comp Metabolic Tln900 K 4.2 mEq/L 11/13/2017 Comp Metabolic Cpi129 CL 104 mEq/L 11/13/2017 Comp Metabolic Oyi219 CO2 26.0 mEq/L 11/13/2017 Comp Metabolic Bsk232 ANION GAP 16 11/13/2017 Comp Metabolic Ixr880 GLUCOSE 115 mg/dL 11/13/2017 Comp Metabolic Cwz027 Creat 0.6 mg/dL 11/13/2017 Comp Metabolic Gyh785 eGFR 114 ml/min/1.73m2 11/13/2017 Comp Metabolic Lit381 BUN 15 mg/dL 11/13/2017 Comp Metabolic Qbx753 B/C Ratio 27.3 Ratio 11/13/2017 Comp Metabolic Cal018 CALCIUM 9.2 mg/dL 11/13/2017 Comp Metabolic Gme034 ALK PHOS 59 U/L 11/13/2017 Comp Metabolic Nhz989 AST(SGOT) 12 U/L 11/13/2017 Comp Metabolic Ixc435 ALT(SGPT) 13 U/L 11/13/2017 Comp Metabolic Ief356 BILI T 0.5 mg/dL 11/13/2017 Comp Metabolic Ctu378 ALBUMIN 4.0 g/dL 11/13/2017 Comp Metabolic Yey738 TPRO 6.0 g/dL 11/13/2017 Comp Metabolic Jbd284 GLOB 2.0 g/dL 11/13/2017 Comp Metabolic Yre981 A/G Ratio 2.0 Ratio 11/13/2017 Comp Metabolic Age953 Osmo 285 mOsmo 11/13/2017 Cbc With Differential [...] 26.9 pg 09/20/2017 Cbc With Differential Ord2 [place]% 9.9 % 09/20/2017 Cbc With Differential Ord2 [...] 1.55 K/ul 09/20/2017 Cbc With Differential Ord2 [place] ABS# 0.9 K/ul 09/20/2017 Cbc With Differential Ord2 Eos ABS# 0.4 K/ul 09/20/2017 Cbc With Differential Ord2 Baso ABS# 0.1 K/ul 09/20/2017 Comp Metabolic Caj906 NA 138 mEq/L 09/20/2017 Comp Metabolic Mao501 K 4.0 mEq/L 09/20/2017 Comp Metabolic Edu442 CL 99 mEq/L 09/20/2017 Comp Metabolic Oev295 CO2 26.0 mEq/L 09/20/2017 Comp Metabolic Rom188 ANION GAP 17 09/20/2017 Comp Metabolic Fui058 GLUCOSE 275 mg/dL 09/20/2017 Comp Metabolic Flq137 Creat 0.6 mg/dL 09/20/2017 Comp Metabolic Hwb976 eGFR 96 ml/min/1.73m2 09/20/2017 Comp Metabolic Ojt955 BUN 17 mg/dL 09/20/2017 Comp Metabolic Otj033 B/C Ratio 26.6 Ratio 09/20/2017 Comp Metabolic Xln205 CALCIUM 9.5 mg/dL 09/20/2017 Comp Metabolic Esa554 ALK PHOS 57 U/L 09/20/2017 Comp Metabolic Tgc309 AST(SGOT) 13 U/L 09/20/2017 Comp Metabolic Htu601 ALT(SGPT) 13 U/L 09/20/2017 Comp Metabolic Yab453 BILI T 0.5 mg/dL 09/20/2017 Comp Metabolic Ajc913 ALBUMIN 4.1 g/dL 09/20/2017 Comp Metabolic Gbm534 TPRO 5.9 g/dL 09/20/2017 Comp Metabolic Phh276 GLOB 1.8 g/dL 09/20/2017 Comp Metabolic Mjt032 A/G Ratio 2.3 Ratio 09/20/2017 Comp Metabolic Dxx045 Osmo 287 mOsmo 09/20/2017 %Hba1C Yua679 % HbA1c 37669- 6 7.2 % 09/20/2017 %Hba1C Bio611 Gluc Ave 160 mg/dL 09/20/2017 MEAN GLUC 6928467 Calc Mean Gluc 169 mg/dL 02/28/2017 CBC [id number] WBC 7.6 10e9/L 02/28/2017 CBC 3939884 RBC 4.91 10e12/L 02/28/2017 CBC 7568116 HEMOGLOBIN 13.2 g/dL 02/28/2017 CBC 7523862 HEMATOCRIT 42.7 % 02/28/2017 CBC 8274659 MCV 87.0 fL 02/28/2017 CBC 5522567 MCH 26.9 pg 02/28/2017 CBC 6288476 MCHC 30.9 g/dL 02/28/2017 CBC 0651217 PLATELET COUNT 341 10e9/L 02/28/2017 CBC 5337944 Mean Plt Volume 10.7 fL 02/28/2017 CBC 5336101 Neut Auto 62.1 % 02/28/2017 CBC 4896323 Lymph Auto 20.2 % 02/28/2017 CBC 1147958 [place] Auto 9.3 % 02/28/2017 CBC 1482144 RDW 15.8 % 02/28/2017 CBC 5201859 Eos Auto 7.1 % 02/28/2017 CBC 1563462 Baso Auto 1.3 % 02/28/2017 CBC 0004059 Neutrophil Abs 4.72 10e9/L 02/28/2017 CBC 2858552 Lymphocyte Abs 1.54 10e9/L 02/28/2017 CBC 3986962 Monocyte Abs 0.71 10e9/L 02/28/2017 CBC 6021616 Eosinophil Abs 0.54 10e9/L 02/28/2017 CBC 1852322 RDW-SD 49.0 fL 02/28/2017 CBC 6781242 Basophil Abs 0.10 10e9/L 02/28/2017 LIPID GRP CHOLESTEROL 189 mg/dL 02/28/2017 LIPID GRP Triglyceride 124 mg/dL 02/28/2017 LIPID GRP HDL CHOLESTEROL 43 mg/dL 02/28/2017 LIPID GRP Chol/HDL Ratio 4.40 ratio 02/28/2017 LIPID GRP NON-HDL Chol 146 mg/dL 02/28/2017 LIPID GRP LDL Cholesterol 121 mg/dL 02/28/2017 A1C HPLC 6105991 Hgb A1c 87137-9 7.5 % 02/28/2017 GFR CALC 9066917 GFR Non Afr Amr >60 mL/min 02/28/2017 GFR CALC 5808261 GFR Afr Amr >60 mL/min 02/28/2017 CHEM 14 8532014 AST 15 U/L 02/28/2017 CHEM 14 8754112 ALT 16 U/L 02/28/2017 CHEM 14 4397970 BUN 18 mg/dL 02/28/2017 CHEM 14 0544761 ALBUMIN 4.0 g/dL 02/28/2017 CHEM 14 0103742 CHLORIDE 104 mmol/L 02/28/2017 CHEM 14 1866231 Bili Total 0.6 mg/dL 02/28/2017 CHEM 14 6777462 ALK PHOS 53 U/L 02/28/2017 CHEM 14 8557386 SODIUM 143 mmol/L 02/28/2017 CHEM 14 7762778 CREATININE 0.66 mg/dL 02/28/2017 CHEM 14 4465025 CALCIUM 9.2 mg/dL 02/28/2017 CHEM 14 1872550 POTASSIUM 3.9 mmol/L 02/28/2017 CHEM 14 3020549 TOTAL PROTEIN 6.6 g/dL 02/28/2017 CHEM 14 4527704 GLUCOSE 146 mg/dL 02/28/2017 CHEM 14 9013988 Bicarbonate 30 mmol/L 02/28/2017 CHEM 14 3658811 AGAP 9 mmol/L 02/28/2017 CBC 4300886 WBC 6.8 10e9/L 08/21/2016 CBC 2617373 RBC 4.87 10e12/L 08/21/2016 CBC 9450217 HEMOGLOBIN 12.7 g/dL 08/21/2016 CBC 4984416 HEMATOCRIT 40.5 % 08/21/2016 CBC 3944849 MCV 83.2 fL 08/21/2016 CBC 5359806 MCH 26.1 pg 08/21/2016 CBC 3583903 MCHC 31.4 g/dL 08/21/2016 CBC 4389920 PLATELET COUNT 334 10e9/L 08/21/2016 CBC 7470745 Mean Plt Volume 10.5 fL 08/21/2016 CBC 2160909 Neut Auto 56.4 % 08/21/2016 CBC 8475599 Lymph Auto 23.5 % 08/21/2016 CBC 2209565 [place] Auto 9.7 % 08/21/2016 CBC 1127514 Eos Auto 9.5 % 08/21/2016 CBC 7406801 RDW 16.6 % 08/21/2016 CBC 6236045 Baso Auto 0.9 % 08/21/2016 CBC 7493570 Neutrophil Abs 3.84 10e9/L 08/21/2016 CBC 7364807 Lymphocyte Abs 1.60 10e9/L 08/21/2016 CBC 2195131 Monocyte Abs 0.66 10e9/L 08/21/2016 CBC 1095032 Eosinophil Abs 0.65 10e9/L 08/21/2016 CBC 4474099 Basophil Abs 0.06 10e9/L 08/21/2016 CBC 7072758 RDW-SD 49.7 fL 08/21/2016 FREE T4 5279160 T4 Free 1.39 ng/dL 08/21/2016 LIPID GRP CHOLESTEROL 211 mg/dL 08/21/2016 LIPID GRP Triglyceride 105 mg/dL 08/21/2016 LIPID GRP HDL CHOLESTEROL 45 mg/dL 08/21/2016 LIPID GRP Chol/HDL Ratio 4.69 ratio 08/21/2016 LIPID GRP NON-HDL Chol 166 mg/dL 08/21/2016 LIPID GRP LDL Cholesterol 145 mg/dL 08/21/2016 A1C HPLC 1926230 Hgb A1c 06752-8 7.4 % 08/21/2016 GFR CALC 7015357 GFR Non Afr Amr >60 mL/min 08/21/2016 GFR CALC 3670282 GFR Afr Amr >60 mL/min 08/21/2016 CHEM 14 0134589 AST 16 U/L 08/21/2016 CHEM 14 1059381 ALT 14 U/L 08/21/2016 CHEM 14 6775202 BUN 14 mg/dL 08/21/2016 CHEM 14 9776446 ALBUMIN 4.1 g/dL 08/21/2016 CHEM 14 1941565 CHLORIDE 105 mmol/L 08/21/2016 CHEM 14 1518587 Bili Total 0.5 mg/dL 08/21/2016 CHEM 14 6875364 ALK PHOS 53 U/L 08/21/2016 CHEM 14 2805509 SODIUM 141 mmol/L 08/21/2016 CHEM 14 9603055 CREATININE 0.66 mg/dL 08/21/2016 CHEM 14 2960834 CALCIUM 9.3 mg/dL 08/21/2016 CHEM 14 0139241 POTASSIUM 4.0 mmol/L 08/21/2016 CHEM 14 6446068 TOTAL PROTEIN 6.6 g/dL 08/21/2016 CHEM 14 1526766 GLUCOSE 145 mg/dL 08/21/2016 CHEM 14 1984859 Bicarbonate 29 mmol/L 08/21/2016 CHEM 14 4868333 AGAP 7 mmol/L 08/21/2016 TSH 8459645 TSH 1.485 uIU/mL 08/21/2016 MEAN GLUC 3367860 Calc Mean Gluc 166 mg/dL 08/21/2016 Cbc [...] 22.8 % 04/24/2016 Cbc With Differential Ord2 [place]% 10.9 % 04/24/2016 Cbc With Differential Ord2 [...] 1.49 K/ul 04/24/2016 Cbc With Differential Ord2 [place] ABS# 0.7 K/ul 04/24/2016 Cbc With Differential Ord2 Eos ABS# 0.7 K/ul 04/24/2016 Cbc With Differential Ord2 Baso ABS# 0.1 K/ul 04/24/2016 Comp Metabolic Ccw687 NA 138 mEq/L 04/24/2016 Comp Metabolic Sba637 K 4.3 mEq/L 04/24/2016 Comp Metabolic Tvf663 CL 103 mEq/L 04/24/2016 Comp Metabolic Fny110 CO2 28.0 mEq/L 04/24/2016 Comp Metabolic Cjt777 ANION GAP 11 04/24/2016 Comp Metabolic Wou298 GLUCOSE 138 mg/dL 04/24/2016 Comp Metabolic Etf064 Creat 0.6 mg/dL 04/24/2016 Comp Metabolic Gow218 eGFR 98 ml/min/1.73m2 04/24/2016 Comp Metabolic Xtn965 BUN 16 mg/dL 04/24/2016 Comp Metabolic Bdj049 B/C Ratio 25.4 Ratio 04/24/2016 Comp Metabolic Uqo319 CALCIUM 9.2 mg/dL 04/24/2016 Comp Metabolic Lyz536 ALK PHOS 55 U/L 04/24/2016 Comp Metabolic Eml134 AST(SGOT) 16 U/L 04/24/2016 Comp Metabolic Nyy521 ALT(SGPT) 16 U/L 04/24/2016 Comp Metabolic Evm140 BILI T 0.6 mg/dL 04/24/2016 Comp Metabolic Tfx578 ALBUMIN 3.9 g/dL 04/24/2016 Comp Metabolic Ghn255 TPRO 6.1 g/dL 04/24/2016 Comp Metabolic Ram099 GLOB 2.2 g/dL 04/24/2016 Comp Metabolic Uxx133 A/G Ratio 1.7 Ratio 04/24/2016 Comp Metabolic Rbu401 Osmo 279 mOsmo 04/24/2016 Lipid Ord30 CHOL 208 mg/dL 04/24/2016 Lipid Ord30 HDL 42.0 mg/dl 04/24/2016 Lipid Ord30 TRIG 98 mg/dL 04/24/2016 Lipid Ord30 LDL 146 mg/dL 04/24/2016 Lipid Ord30 C/HDL 5.0 Ratio 04/24/2016 %Hba1C Uyz651 % HbA1c 56824- 6 7.5 % 04/24/2016 %Hba1C Qup642 Gluc Ave 169 mg/dL 04/24/2016 Tsh Ord6 hTSH II 0.82 uIU/mL 04/24/2016 Free T4 Ieb009 FREE T4 1.17 ng/dL 04/24/2016 Digoxin Ord9 DIGOXIN 0.9 NG/ML 02/03/2016 Free T4 Rtb435 FREE T4 1.17 ng/dL 12/07/2015 %Hba1C Twg301 % HbA1c 39453- 6 7.5 % 12/07/2015 %Hba1C Eyv164 Gluc Ave 169 mg/dL 12/07/2015 Tsh Ord6 [...] 25.5 pg 12/07/2015 Cbc With Differential Ord2 [place]% 9.3 % 12/07/2015 Cbc With Differential Ord2 [...] 1.23 K/ul 12/07/2015 Cbc With Differential Ord2 [place] ABS# 0.7 K/ul 12/07/2015 Cbc With Differential Ord2 Eos ABS# 0.3 K/ul 12/07/2015 Cbc With Differential Ord2 Baso ABS# 0.1 K/ul 12/07/2015 Lipid Ord30 CHOL 196 mg/dL 12/07/2015 Lipid Ord30 HDL 41.0 mg/dl 12/07/2015 Lipid Ord30 TRIG 142 mg/dL 12/07/2015 Lipid Ord30 LDL 127 mg/dL 12/07/2015 Lipid Ord30 C/HDL 4.8 Ratio 12/07/2015 Comp Metabolic Srs327 NA 139 mEq/L 12/07/2015 Comp Metabolic Zkf850 K 4.3 mEq/L 12/07/2015 Comp Metabolic Xyg031 CL 101 mEq/L 12/07/2015 Comp Metabolic Ktv695 CO2 33.0 mEq/L 12/07/2015 Comp Metabolic Yvk282 ANION GAP 9 12/07/2015 Comp Metabolic Fqk744 GLUCOSE 159 mg/dL 12/07/2015 Comp Metabolic Nyv906 Creat 0.6 mg/dL 12/07/2015 Comp Metabolic Ski391 eGFR 108 ml/min/1.73m2 12/07/2015 Comp Metabolic Sgz507 BUN 13 mg/dL 12/07/2015 Comp Metabolic Hzg778 B/C Ratio 22.4 Ratio 12/07/2015 Comp Metabolic Rrd590 CALCIUM 9.0 mg/dL 12/07/2015 Comp Metabolic Mtz430 ALK PHOS 60 U/L 12/07/2015 Comp Metabolic Bzb762 AST(SGOT) 16 U/L 12/07/2015 Comp Metabolic Ntr770 ALT(SGPT) 19 U/L 12/07/2015 Comp Metabolic Sfx418 BILI T 0.6 mg/dL 12/07/2015 Comp Metabolic Yoe159 ALBUMIN 4.0 g/dL 12/07/2015 Comp Metabolic Gfw356 TPRO 6.0 g/dL 12/07/2015 Comp Metabolic Hbz095 GLOB 2.0 g/dL 12/07/2015 Comp Metabolic Czn700 A/G Ratio 1.9 Ratio 12/07/2015 Comp Metabolic Bym773 Osmo 281 mOsmo 12/07/2015 Cbc With Differential [...] hTSH II 1.10 uIU/mL 06/14/2015 Free T4 Twc417 FREE T4 1.31 ng/dL 06/14/2015 %Hba1C Owl459 % HbA1c 90711- 6 6.8 % 06/14/2015 %Hba1C Oai764 Gluc Ave 148 mg/dL 06/14/2015 CHEM 14 1670659 AST 14 U/L 12/07/2014 CHEM 14 4147958 ALT 12 IU/L 12/07/2014 CHEM 14 8351060 BUN 12 MG/DL 12/07/2014 CHEM 14 2735459 ALBUMIN 3.9 GM/DL 12/07/2014 CHEM 14 1334641 CHLORIDE 103 MMOL/L 12/07/2014 CHEM 14 7961653 BILI TOT 0.6 MG/DL 12/07/2014 CHEM 14 4890227 ALK PHOS 49 U/L 12/07/2014 CHEM 14 7022239 SODIUM 140 MMOL/L 12/07/2014 CHEM 14 4232698 CREATININE 0.57 MG/DL 12/07/2014 CHEM 14 8163948 CALCIUM 9.5 MG/DL 12/07/2014 CHEM 14 2903548 POTASSIUM 4.0 MMOL/L 12/07/2014 CHEM 14 3341757 PROT TOT 6.5 GM/DL 12/07/2014 CHEM 14 8664457 GLUCOSE 110 MG/DL 12/07/2014 CHEM 14 7630218 BICARB 29 MMOL/L 12/07/2014 CHEM 14 0298971 ANION GAP 8 MEQ/L 12/07/2014 A1C HPLC 2337258 A1C HPLC 92649-2 6.4 % 12/07/2014 TSH 1053751 TSH 1.106 uIU/ML 12/07/2014 LIPID GRP HDL TEST 46 MG/DL 12/07/2014 LIPID GRP TRIG 119 MG/DL 12/07/2014 LIPID GRP TEST LDL 108 MG/DL 12/07/2014 LIPID GRP CHOL 178 MG/DL 12/07/2014 LIPID GRP RCHOL/HDL 3.87 RATIO 12/07/2014 LIPID GRP NON-HDL CH 132 MG/DL 12/07/2014 CBC 7410383 WBC 6.4 10e9/L 12/07/2014 CBC 7854342 RBC 4.51 10e12/L 12/07/2014 CBC 9053144 HGB 12.2 g/dL 12/07/2014 CBC 8533129 HCT DET 39.0 % 12/07/2014 CBC 1655952 MCV 86.5 fL 12/07/2014 CBC 0356983 MCH 27.1 pg 12/07/2014 CBC 8303922 MCHC 31.3 g/dL 12/07/2014 CBC 2995269 PLT 325 10e9/L 12/07/2014 CBC 3046440 MPV 10.4 fL 12/07/2014 CBC 2150890 TIM % 62.0 % 12/07/2014 CBC 0245795 LY % 21.4 % 12/07/2014 CBC 8200281 MON % 9.5 % 12/07/2014 CBC 6953105 EOS % 6.3 % 12/07/2014 CBC 3436349 BASO % 0.8 % 12/07/2014 CBC 9135688 RDW 15.8 % 12/07/2014 CBC 6472662 ABS TIM 3.97 10e9/L 12/07/2014 CBC 8861869 ABS LYMPH 1.37 10e9/L 12/07/2014 CBC 7760896 ABS MONO 0.61 10e9/L 12/07/2014 CBC 0866525 ABS EOS 0.40 10e9/L 12/07/2014 CBC 9029849 ABS BASO 0.05 10e9/L 12/07/2014 CBC 3320790 RDW-SD 48.8 fL 12/07/2014 FREE T4 1017718 FREE T4 1.37 NG/DL 12/07/2014 GFR CALC 7751204 GFR AA >60 ML/MIN 12/07/2014 GFR CALC 1750524 GFR NON-AA >60 ML/MIN 12/07/2014 CHEM 14 2115533 AST 17 U/L 11/04/2013 CHEM 14 8107577 ALT 16 IU/L 11/04/2013 CHEM 14 2378837 BUN 13 MG/DL 11/04/2013 CHEM 14 7686451 ALBUMIN 4.3 GM/DL 11/04/2013 CHEM 14 9163531 CHLORIDE 104 MMOL/L 11/04/2013 CHEM 14 5193509 BILI TOT 0.7 MG/DL 11/04/2013 CHEM 14 1191191 ALK PHOS 67 U/L 11/04/2013 CHEM 14 4596135 SODIUM 140 MMOL/L 11/04/2013 CHEM 14 8518363 CREATININE 0.64 MG/DL 11/04/2013 CHEM 14 6476913 CALCIUM 9.5 MG/DL 11/04/2013 CHEM 14 8634378 POTASSIUM 4.0 MMOL/L 11/04/2013 CHEM 14 3039258 PROT TOT 6.1 GM/DL 11/04/2013 CHEM 14 0543614 GLUCOSE 157 MG/DL 11/04/2013 CHEM 14 6591614 BICARB 27 MMOL/L 11/04/2013 CHEM 14 3615482 ANION GAP 9 MEQ/L 11/04/2013 FREE T4 8692404 FREE T4 1.44 NG/DL 11/04/2013 GFR CALC 0641743 GFR AA >60 ML/MIN 11/04/2013 GFR CALC 2093925 GFR NON-AA >60 ML/MIN 11/04/2013 TSH 9902648 TSH 0.841 uIU/ML 11/04/2013 A1C HPLC 7914655 A1C HPLC 28417-2 7.2 % 11/04/2013 LIPID GRP HDL TEST 45 MG/DL 11/04/2013 LIPID GRP TRIG 104 MG/DL 11/04/2013 LIPID GRP TEST LDL 82 MG/DL 11/04/2013 LIPID GRP CHOL 148 MG/DL 11/04/2013 LIPID GRP RCHOL/HDL 3.29 RATIO 11/04/2013 CBC 1448189 WBC 6.2 10e9/L 11/04/2013 CBC 7010509 RBC 4.38 10e12/L 11/04/2013 CBC 1869402 HGB 11.8 g/dL 11/04/2013 CBC 1458362 HCT DET 37.5 % 11/04/2013 CBC 0778777 MCV 85.6 fL 11/04/2013 CBC 3250815 MCH 26.9 pg 11/04/2013 CBC 9794248 MCHC 31.5 g/dL 11/04/2013 CBC 7744751 PLT 330 10e9/L 11/04/2013 CBC 7211743 MPV 10.6 fL 11/04/2013 CBC 7151354 TIM % 60.8 % 11/04/2013 CBC 8317442 LY % 22.1 % 11/04/2013 CBC 7403731 MON % 9.6 % 11/04/2013 CBC 7606006 EOS % 6.4 % 11/04/2013 CBC 7072049 BASO % 1.1 % 11/04/2013 CBC 0106703 RDW 15.6 % 11/04/2013 CBC 6379015 ABS TIM 3.77 10e9/L 11/04/2013 CBC 6128909 ABS LYMPH 1.37 10e9/L 11/04/2013 CBC 1813491 ABS MONO 0.60 10e9/L 11/04/2013 CBC 5953807 ABS EOS 0.40 10e9/L 11/04/2013 CBC 8278791 ABS BASO 0.07 10e9/L 11/04/2013 CBC 4674318 RDW-SD 48.0 fL 11/04/2013 DIGOXIN 2818528 DIGOXIN 0.5 NG/ML 11/04/2013 A1C HPLC 2296442 A1C HPLC 02501-5 7.6 % 07/28/2013 LIPID GRP HDL TEST 38 MG/DL 07/28/2013 LIPID GRP TRIG 137 MG/DL 07/28/2013 LIPID GRP TEST LDL 73 MG/DL 07/28/2013 LIPID GRP CHOL 138 MG/DL 07/28/2013 LIPID GRP RCHOL/HDL 3.63 RATIO 07/28/2013 LIVER PNL 0114803 BILI DIR 0.2 MG/DL 07/28/2013 DIGOXIN 3224875 DIGOXIN 0.4 NG/ML 07/28/2013 CBC 2337189 WBC 7.2 10e9/L 07/28/2013 CBC 5233968 RBC 4.65 10e12/L 07/28/2013 CBC 1897504 HGB 12.6 g/dL 07/28/2013 CBC 8606722 HCT DET 39.6 % 07/28/2013 CBC 9114892 MCV 85.2 fL 07/28/2013 CBC 7997103 MCH 27.1 pg 07/28/2013 CBC 6271083 MCHC 31.8 g/dL 07/28/2013 CBC 9526393 PLT 344 10e9/L 07/28/2013 CBC 0986670 MPV 10.7 fL 07/28/2013 CBC 3105845 TIM % 61.4 % 07/28/2013 CBC 0091473 LY % 22.4 % 07/28/2013 CBC 2782155 MON % 8.4 % 07/28/2013 CBC 2049851 EOS % 6.8 % 07/28/2013 CBC 8910751 BASO % 1.0 % 07/28/2013 CBC 1773837 RDW 15.5 % 07/28/2013 CBC 3087291 ABS TIM 4.42 10e9/L 07/28/2013 CBC 6493015 ABS LYMPH 1.61 10e9/L 07/28/2013 CBC 5288249 ABS MONO 0.60 10e9/L 07/28/2013 CBC 8256947 ABS EOS 0.49 10e9/L 07/28/2013 CBC 0959758 ABS BASO 0.07 10e9/L 07/28/2013 CBC 5130042 RDW-SD 47.2 fL 07/28/2013 GFR CALC 2188799 GFR AA >60 ML/MIN 07/28/2013 GFR CALC 0773856 GFR NON-AA >60 ML/MIN 07/28/2013 CHEM 14 20280111 AST 20 U/L 07/28/2013 CHEM 14 7559863 ALT 19 IU/L 07/28/2013 CHEM 14 7515250 BUN 13 MG/DL 07/28/2013 CHEM 14 4224888 ALBUMIN 4.1 GM/DL 07/28/2013 CHEM 14 9622932 CHLORIDE 102 MMOL/L 07/28/2013 CHEM 14 4667034 BILI TOT 0.7 MG/DL 07/28/2013 CHEM 14 4501911 ALK PHOS 62 U/L 07/28/2013 CHEM 14 3438033 SODIUM 139 MMOL/L 07/28/2013 CHEM 14 1574717 CREATININE 0.66 MG/DL 07/28/2013 CHEM 14 7378245 CALCIUM 9.3 MG/DL 07/28/2013 CHEM 14 7215459 POTASSIUM 4.4 MMOL/L 07/28/2013 CHEM 14 3496496 PROT TOT 6.2 GM/DL 07/28/2013 CHEM 14 3554455 GLUCOSE 160 MG/DL 07/28/2013 CHEM 14 4352591 BICARB 29 MMOL/L 07/28/2013 CHEM 14 4780864 ANION GAP 8 MEQ/L 07/28/2013 DIGOXIN 3474570 DIGOXIN 0.6 NG/ML 05/12/2013 GFR CALC 7387860 GFR AA >60 ML/MIN 04/29/2013 GFR CALC 9316654 GFR NON-AA >60 ML/MIN 04/29/2013 A1C 4710153 A1C HPLC 66411- 6 7.5 % 04/29/2013 TSH 0781511 TSH 1.161 uIU/ML 04/29/2013 CHEM 14 0854793 AST 14 U/L 04/29/2013 CHEM 14 9838900 ALT 14 IU/L 04/29/2013 CHEM 14 1266707 BUN 13 MG/DL 04/29/2013 CHEM 14 7611830 ALBUMIN 4.1 GM/DL 04/29/2013 CHEM 14 1319114 CHLORIDE 102 MMOL/L 04/29/2013 CHEM 14 7869905 BILI TOT 0.7 MG/DL 04/29/2013 CHEM 14 4114070 ALK PHOS 75 U/L 04/29/2013 CHEM 14 0485241 SODIUM 139 MMOL/L 04/29/2013 CHEM 14 8029750 CREATININE 0.62 MG/DL 04/29/2013 CHEM 14 8230798 CALCIUM 9.3 MG/DL 04/29/2013 CHEM 14 3364570 POTASSIUM 4.0 MMOL/L 04/29/2013 CHEM 14 4793879 PROT TOT 6.5 GM/DL 04/29/2013 CHEM 14 2410303 GLUCOSE 152 MG/DL 04/29/2013 CHEM 14 0888955 BICARB 31 MMOL/L 04/29/2013 CHEM 14 1906292 ANION GAP 6 MEQ/L 04/29/2013 CBC 4577417 WBC 7.4 10e9/L 04/29/2013 CBC 2461543 RBC 4.70 10e12/L 04/29/2013 CBC 2848105 HGB 12.8 g/dL 04/29/2013 CBC 3274712 HCT DET 40.1 % 04/29/2013 CBC 8514074 MCV 85.3 fL 04/29/2013 CBC 5548847 MCH 27.2 pg 04/29/2013 CBC 1461338 MCHC 31.9 g/dL 04/29/2013 CBC 0168136 PLT 312 10e9/L 04/29/2013 CBC 7459158 MPV 10.4 fL 04/29/2013 CBC 1274674 TIM % 64.9 % 04/29/2013 CBC 3433156 LY % 20.0 % 04/29/2013 CBC 7939349 MON % 8.6 % 04/29/2013 CBC 3212272 EOS % 5.3 % 04/29/2013 CBC 9796671 BASO % 1.2 % 04/29/2013 CBC 7131901 RDW 15.4 % 04/29/2013 CBC 1143256 ABS TIM 4.80 10e9/L 04/29/2013 CBC 4923718 ABS LYMPH 1.48 10e9/L 04/29/2013 CBC 0335277 ABS MONO 0.64 10e9/L 04/29/2013 CBC 6197557 ABS EOS 0.39 10e9/L 04/29/2013 CBC 6022703 ABS BASO 0.09 10e9/L 04/29/2013 CBC 5256162 RDW-SD 47.3 fL 04/29/2013 LIPID GRP HDL TEST 43 MG/DL 04/29/2013 LIPID GRP TRIG 111 MG/DL 04/29/2013 LIPID GRP 7319737 TEST LDL 65 MG/DL 04/29/2013 LIPID GRP CHOL 130 MG/DL 04/29/2013 LIPID GRP 9053194 RCHOL/HDL 3.02 RATIO 04/29/2013 TSH 3673080 TSH 1.406 uIU/ML 12/28/2012 A1C 2114716 A1C HPLC 79630- 6 7.2 % 12/28/2012 LIPID GRP HDL TEST 54 MG/DL 12/27/2012 LIPID GRP TRIG 94 MG/DL 12/27/2012 LIPID GRP TEST LDL 42 MG/DL 12/27/2012 LIPID GRP CHOL 115 MG/DL 12/27/2012 LIPID GRP RCHOL/HDL 2.13 RATIO 12/27/2012 GFR CALC 1978549 GFR AA >60 ML/MIN 12/27/2012 GFR CALC 0806418 GFR NON-AA >60 ML/MIN 12/27/2012 CHEM 14 8387202 AST 14 U/L 12/27/2012 CHEM 14 6209679 ALT 13 IU/L 12/27/2012 CHEM 14 8803338 BUN 13 MG/DL 12/27/2012 CHEM 14 9842695 ALBUMIN 4.5 GM/DL 12/27/2012 CHEM 14 6856127 CHLORIDE 105 MMOL/L 12/27/2012 CHEM 14 2151017 BILI TOT 0.8 MG/DL 12/27/2012 CHEM 14 7126773 ALK PHOS 69 U/L 12/27/2012 CHEM 14 2959861 SODIUM 142 MMOL/L 12/27/2012 CHEM 14 1015788 CREATININE 0.73 MG/DL 12/27/2012 CHEM 14 6202470 CALCIUM 9.7 MG/DL 12/27/2012 CHEM 14 8840317 POTASSIUM 4.1 MMOL/L 12/27/2012 CHEM 14 4238916 PROT TOT 6.8 GM/DL 12/27/2012 CHEM 14 6079866 GLUCOSE 133 MG/DL 12/27/2012 CHEM 14 3901616 BICARB 30 MMOL/L 12/27/2012 CHEM 14 4795954 ANION GAP 7 MEQ/L 12/27/2012 CBC 6035260 WBC 6.8 10e9/L 12/27/2012 CBC 1188643 RBC 4.72 10e12/L 12/27/2012 CBC 8477986 HGB 12.5 g/dL 12/27/2012 CBC 1095177 HCT DET 39.6 % 12/27/2012 CBC 1268641 MCV 83.9 fL 12/27/2012 CBC 1399013 MCH 26.5 pg 12/27/2012 CBC 1159352 MCHC 31.6 g/dL 12/27/2012 CBC 1043202 PLT 336 10e9/L 12/27/2012 CBC 0859594 MPV 10.4 fL 12/27/2012 CBC 6940785 TIM % 60.7 % 12/27/2012 CBC 1671370 LY % 24.6 % 12/27/2012 CBC 9361262 MON % 8.4 % 12/27/2012 CBC 1752394 EOS % 5.3 % 12/27/2012 CBC 8008034 BASO % 1.0 % 12/27/2012 CBC 1013800 RDW 16.6 % 12/27/2012 CBC 3946251 ABS TIM 4.13 10e9/L 12/27/2012 CBC 9315319 ABS LYMPH 1.67 10e9/L 12/27/2012 CBC 5482710 ABS MONO 0.57 10e9/L 12/27/2012 CBC 9311167 ABS EOS 0.36 10e9/L 12/27/2012 CBC 9897484 ABS BASO 0.07 10e9/L 12/27/2012 CBC 1039749 RDW-SD 50.1 fL 12/27/2012 GFR CALC 5604508 GFR AA >60 ML/MIN 08/27/2012 GFR CALC 1299445 GFR NON-AA >60 ML/MIN 08/27/2012 CHEM 14 9192780 AST 15 U/L 08/27/2012 CHEM 14 4998994 ALT 17 IU/L 08/27/2012 CHEM 14 3151606 BUN 14 MG/DL 08/27/2012 CHEM 14 5360841 ALBUMIN 4.2 GM/DL 08/27/2012 CHEM 14 6711473 CHLORIDE 103 MMOL/L 08/27/2012 CHEM 14 8239558 BILI TOT 0.6 MG/DL 08/27/2012 CHEM 14 0409580 ALK PHOS 86 U/L 08/27/2012 CHEM 14 5804240 SODIUM 141 MMOL/L 08/27/2012 CHEM 14 0712690 CREATININE 0.64 MG/DL 08/27/2012 CHEM 14 7692973 CALCIUM 9.5 MG/DL 08/27/2012 CHEM 14 9274174 POTASSIUM 4.1 MMOL/L 08/27/2012 CHEM 14 8126354 PROT TOT 6.1 GM/DL 08/27/2012 CHEM 14 7504612 GLUCOSE 151 MG/DL 08/27/2012 CHEM 14 5469328 BICARB 30 MMOL/L 08/27/2012 CHEM 14 7598291 ANION GAP 8 MEQ/L 08/27/2012 FREE T4 3587855 FREE T4 1.36 NG/DL 08/27/2012 CBC 1174749 WBC 7.8 10e9/L 08/27/2012 CBC 3213341 RBC 4.54 10e12/L 08/27/2012 CBC 7434073 HGB 12.0 g/dL 08/27/2012 CBC 6127252 HCT DET 37.9 % 08/27/2012 CBC 0637344 MCV 83.5 fL 08/27/2012 CBC 7270381 MCH 26.4 pg 08/27/2012 CBC 0942750 MCHC 31.7 g/dL 08/27/2012 CBC 4993328 PLT 370 10e9/L 08/27/2012 CBC 3550031 MPV 10.7 fL 08/27/2012 CBC 7065389 TIM % 65.7 % 08/27/2012 CBC 0972777 LY % 19.5 % 08/27/2012 CBC 6849313 MON % 9.0 % 08/27/2012 CBC 6154694 EOS % 5.0 % 08/27/2012 CBC 0522846 BASO % 0.8 % 08/27/2012 CBC 8191129 RDW 15.4 % 08/27/2012 CBC 8323746 ABS TIM 5.12 10e9/L 08/27/2012 CBC 4086234 ABS LYMPH 1.52 10e9/L 08/27/2012 CBC 1906986 ABS MONO 0.70 10e9/L 08/27/2012 CBC 9450204 ABS EOS 0.39 10e9/L 08/27/2012 CBC 0014420 ABS BASO 0.06 10e9/L 08/27/2012 CBC 1308142 RDW-SD 46.3 fL 08/27/2012 A1C HPLC 1002672 A1C HPLC 38343-2 7.3 % 08/27/2012 LIPID GRP HDL TEST 41 MG/DL 08/27/2012 LIPID GRP TRIG 120 MG/DL 08/27/2012 LIPID GRP TEST LDL 67 MG/DL 08/27/2012 LIPID GRP CHOL 132 MG/DL 08/27/2012 LIPID GRP RCHOL/HDL 3.22 RATIO 08/27/2012 TSH 0758976 TSH 0.933 uIU/ML 08/27/2012 DIGOXIN 9319764 DIGOXIN 1.4 NG/ML 07/15/2012 CBC 8927521 WBC 6.3 10e9/L 07/15/2012 CBC 3030290 RBC 4.44 10e12/L 07/15/2012 CBC 0115169 HGB 11.8 g/dL 07/15/2012 CBC 6067792 HCT DET 36.9 % 07/15/2012 CBC 8304222 MCV 83.1 fL 07/15/2012 CBC 1313200 MCH 26.6 pg 07/15/2012 CBC 2013802 MCHC 32.0 g/dL 07/15/2012 CBC 0352164 PLT 316 10e9/L 07/15/2012 CBC 8001242 MPV 10.3 fL 07/15/2012 CBC 7260823 TIM % 64.4 % 07/15/2012 CBC 4628603 LY % 19.6 % 07/15/2012 CBC 0468911 MON % 9.1 % 07/15/2012 CBC 1494238 EOS % 6.1 % 07/15/2012 CBC 4732452 BASO % 0.8 % 07/15/2012 CBC 4346867 RDW 15.3 % 07/15/2012 CBC 6524425 ABS TIM 4.06 10e9/L 07/15/2012 CBC 6954541 ABS LYMPH 1.23 10e9/L 07/15/2012 CBC 8726323 ABS MONO 0.57 10e9/L 07/15/2012 CBC 9278287 ABS EOS 0.38 10e9/L 07/15/2012 CBC 7763917 ABS BASO 0.05 10e9/L 07/15/2012 CBC 2945709 RDW-SD 46.2 fL 07/15/2012 DIGOXIN 3383789 DIGOXIN 1.4 NG/ML 07/04/2012 BMP 3162328 GLUCOSE 137 MG/DL 07/04/2012 BMP 2496798 CREATININE 0.86 MG/DL 07/04/2012 BMP 2265442 BUN 14 MG/DL 07/04/2012 BMP 7627399 SODIUM 140 MMOL/L 07/04/2012 BMP 5720938 POTASSIUM 4.5 MMOL/L 07/04/2012 BMP 8117095 CHLORIDE 103 MMOL/L 07/04/2012 BMP 3934280 BICARB 28 MMOL/L 07/04/2012 BMP 4205535 ANION GAP 9 MEQ/L 07/04/2012 BMP 1382804 CALCIUM 9.7 MG/DL 07/04/2012 CBC 3133581 WBC 6.9 10e9/L 07/04/2012 CBC 3180674 RBC 4.56 10e12/L 07/04/2012 CBC 2457990 HGB 12.2 g/dL 07/04/2012 CBC 7208849 HCT DET 38.1 % 07/04/2012 CBC 6023642 MCV 83.6 fL 07/04/2012 CBC 5146118 MCH 26.8 pg 07/04/2012 CBC 0419497 MCHC 32.0 g/dL 07/04/2012 CBC 6372655 PLT 382 10e9/L 07/04/2012 CBC 8861458 MPV 10.6 fL 07/04/2012 CBC 5344152 TIM % 58.7 % 07/04/2012 CBC 4248665 LY % 23.7 % 07/04/2012 CBC 6220388 MON % 10.2 % 07/04/2012 CBC 4167882 EOS % 6.4 % 07/04/2012 CBC 2286261 BASO % 1.0 % 07/04/2012 CBC 8732700 RDW 15.8 % 07/04/2012 CBC 2627690 ABS TIM 4.05 10e9/L 07/04/2012 CBC 8249796 ABS LYMPH 1.64 10e9/L 07/04/2012 CBC 3735212 ABS MONO 0.70 10e9/L 07/04/2012 CBC 3808026 ABS EOS 0.44 10e9/L 07/04/2012 CBC 4918349 ABS BASO 0.07 10e9/L 07/04/2012 CBC 0173013 RDW-SD 47.5 fL 07/04/2012 GFR CALC 8914128 GFR AA >60 ML/MIN 07/04/2012 GFR CALC 8232513 GFR NON-AA >60 ML/MIN 07/04/2012 A1C HPLC 0620736 A1C HPLC 12045-3 7.1 % 03/27/2012 GFR CALC 2141665 GFR AA >60 ML/MIN 03/26/2012 GFR CALC 9898186 GFR NON-AA >60 ML/MIN 03/26/2012 LIPID GRP HDL TEST 40 MG/DL 03/26/2012 LIPID GRP TRIG 93 MG/DL 03/26/2012 LIPID GRP TEST LDL 62 MG/DL 03/26/2012 LIPID GRP CHOL 121 MG/DL 03/26/2012 LIPID GRP RCHOL/HDL 3.03 RATIO 03/26/2012 TSH 6909645 TSH 0.842 uIU/ML 03/26/2012 FREE T4 8009328 FREE T4 1.30 NG/DL 03/26/2012 CBC 0851508 WBC 5.3 10e9/L 03/26/2012 CBC 1601461 RBC 4.70 10e12/L 03/26/2012 CBC 5313247 HGB 12.1 g/dL 03/26/2012 CBC 2692479 HCT DET 38.1 % 03/26/2012 CBC 0601051 MCV 81.1 fL 03/26/2012 CBC 2024072 MCH 25.7 pg 03/26/2012 CBC 2174646 MCHC 31.8 g/dL 03/26/2012 CBC 2172250 PLT 315 10e9/L 03/26/2012 CBC 0391890 MPV 10.9 fL 03/26/2012 CBC 7016822 TIM % 54.8 % 03/26/2012 CBC 2333336 LY % 25.8 % 03/26/2012 CBC 6774593 MON % 11.6 % 03/26/2012 CBC 7407313 EOS % 7.0 % 03/26/2012 CBC 8265261 BASO % 0.8 % 03/26/2012 CBC 8034290 RDW 16.7 % 03/26/2012 CBC 5059491 ABS TIM 2.90 10e9/L 03/26/2012 CBC 1690555 ABS LYMPH 1.37 10e9/L 03/26/2012 CBC 4923917 ABS MONO 0.61 10e9/L 03/26/2012 CBC 5964601 ABS EOS 0.37 10e9/L 03/26/2012 CBC 0114898 ABS BASO 0.04 10e9/L 03/26/2012 CBC 5945724 RDW-SD 48.8 fL 03/26/2012 CHEM 14 9836213 AST 18 U/L 03/26/2012 CHEM 14 5945881 ALT 17 IU/L 03/26/2012 CHEM 14 3310612 BUN 16 MG/DL 03/26/2012 CHEM 14 6307696 ALBUMIN 4.3 GM/DL 03/26/2012 CHEM 14 8236586 CHLORIDE 103 MMOL/L 03/26/2012 CHEM 14 0431988 BILI TOT 0.9 MG/DL 03/26/2012 CHEM 14 6876380 ALK PHOS 79 U/L 03/26/2012 CHEM 14 2740868 SODIUM 140 MMOL/L 03/26/2012 CHEM 14 4764363 CREATININE 0.70 MG/DL 03/26/2012 CHEM 14 1163146 CALCIUM 9.6 MG/DL 03/26/2012 CHEM 14 1293580 POTASSIUM 4.1 MMOL/L 03/26/2012 CHEM 14 8868889 PROT TOT 6.3 GM/DL 03/26/2012 CHEM 14 8969415 GLUCOSE 142 MG/DL 03/26/2012 CHEM 14 3788991 BICARB 29 MMOL/L 03/26/2012 CHEM 14 1280335 ANION GAP 8 MEQ/L 03/26/2012 LIPID GRP HDL TEST 42 MG/DL 01/08/2012 LIPID GRP TRIG 105 MG/DL 01/08/2012 LIPID GRP TEST LDL 51 MG/DL 01/08/2012 LIPID GRP CHOL 114 MG/DL 01/08/2012 LIPID GRP RCHOL/HDL 2.71 RATIO 01/08/2012 CHEM 14 9495791 AST 24 U/L 01/08/2012 CHEM 14 5056257 ALT 28 IU/L 01/08/2012 CHEM 14 8160055 BUN 15 MG/DL 01/08/2012 CHEM 14 7910511 ALBUMIN 4.3 GM/DL 01/08/2012 CHEM 14 3376645 CHLORIDE 104 MMOL/L 01/08/2012 CHEM 14 9920145 BILI TOT 0.6 MG/DL 01/08/2012 CHEM 14 [id number] ALK PHOS 83 U/L 01/08/2012 CHEM 14 [id number] SODIUM 141 MMOL/L 01/08/2012 CHEM 14 8736009 CREATININE 0.64 MG/DL 01/08/2012 CHEM 14 4880841 CALCIUM 9.4 MG/DL 01/08/2012 CHEM 14 8687242 POTASSIUM 4.0 MMOL/L 01/08/2012 CHEM 14 9290587 PROT TOT 6.7 GM/DL 01/08/2012 CHEM 14 8832855 GLUCOSE 145 MG/DL 01/08/2012 CHEM 14 5171804 BICARB 28 MMOL/L 01/08/2012 CHEM 14 5229608 ANION GAP 9 MEQ/L 01/08/2012 CBC 9972532 WBC 5.8 10e9/L 01/08/2012 CBC 3083258 RBC 4.36 10e12/L 01/08/2012 CBC 8854554 HGB 11.6 g/dL 01/08/2012 CBC 1377410 HCT DET 37.4 % 01/08/2012 CBC 6066246 MCV 85.8 fL 01/08/2012 CBC 7765793 MCH 26.6 pg 01/08/2012 CBC 4752507 MCHC 31.0 g/dL 01/08/2012 CBC 2205941 PLT 319 10e9/L 01/08/2012 CBC 1370276 MPV 10.5 fL 01/08/2012 CBC 9585249 TIM % 62.2 % 01/08/2012 CBC 0826268 LY % 20.7 % 01/08/2012 CBC 5715943 MON % 9.3 % 01/08/2012 CBC 9923534 EOS % 6.4 % 01/08/2012 CBC 2334183 BASO % 1.4 % 01/08/2012 CBC 0474579 RDW 14.9 % 01/08/2012 CBC 9584166 ABS TIM 3.61 10e9/L 01/08/2012 CBC 7306648 ABS LYMPH 1.20 10e9/L 01/08/2012 CBC 2700652 ABS MONO 0.54 10e9/L 01/08/2012 CBC 4285683 ABS EOS 0.37 10e9/L 01/08/2012 CBC 7280237 ABS BASO 0.08 10e9/L 01/08/2012 CBC 1579907 RDW-SD 44.9 fL 01/08/2012 GFR CALC 4786413 GFR AA >60 ML/MIN 01/08/2012 GFR CALC 5602724 GFR NON-AA >60 ML/MIN 01/08/2012 A1C HPLC 7808589 A1C HPLC 16813-0 7.2 % 01/08/2012 Review of Systems System Result Effective Dates Constitutional No recent illness 01/21/2018 Constitutional No [...] clear 11/10/2013 None Full Exam - General 1994 [...] Codes Date URINALYSIS NONAUTO W/O SCOPE CPT-4: 88316 12/31/2017 OCCULT BLOOD FECES CPT- 4: 40961 11/28/2017 TRIAMCINOLONE ACET INJ NOS CPT-4: J3301 10/30/2017 REMOVAL OF IMPACTED WAX CPT-4: G0268 05/29/2017 THER/PROPH/DIAG INJ SC/IM CPT-4: 19957 05/14/2017 KETOROLAC TROMETHAMINE INJ CPT-4: J1885 05/14/2017 ADMIN INFLUENZA VIRUS VAC CPT-4: G0008 04/30/2017 FLU VACC PRSV FREE INC ANTIG CPT-4: 39728 04/30/2017 THER/PROPH/DIAG INJ SC/IM CPT-4: 94628 03/06/2017 TRIAMCINOLONE ACET INJ NOS CPT-4: J3301 03/06/2017 THER/PROPH/DIAG INJ SC/IM CPT-4: 89538 09/04/2016 TRIAMCINOLONE ACET INJ NOS CPT-4: J3301 09/04/2016 THER/PROPH/DIAG INJ SC/IM CPT-4: 02447 11/11/2015 TRIAMCINOLONE ACET INJ NOS CPT-4: J3301 11/11/2015 TRIAMCINOLONE ACET INJ NOS CPT-4: J3301 10/25/2015 THER/PROPH/DIAG INJ SC/IM CPT-4: 71336 10/25/2015 THER/PROPH/DIAG INJ SC/IM CPT-4: 99954 08/17/2014 TRIAMCINOLONE ACET INJ NOS CPT-4: J3301 08/17/2014 TRIAMCINOLONE ACET INJ NOS CPT-4: J3301 04/13/2014 THER/PROPH/DIAG INJ SC/IM CPT-4: 23826 04/13/2014 ROUTINE VENIPUNCTURE CPT- 4: 38637 11/04/2013 ROUTINE VENIPUNCTURE CPT- 4: 35958 05/12/2013 ADMIN INFLUENZA VIRUS VAC CPT-4: G0008 05/12/2013 FLULAVAL VACC, 3 YRS & >, IM CPT-4: Q2036 05/12/2013 TRIAMCINOLONE ACET INJ NOS CPT-4: J3301 10/07/2012 THER/PROPH/DIAG INJ SC/IM CPT-4: 66208 10/07/2012 ROUTINE VENIPUNCTURE CPT- 4: 45282 08/27/2012 ROUTINE VENIPUNCTURE CPT- 4: 87776 07/15/2012 ROUTINE VENIPUNCTURE CPT- 4: 65427 03/26/2012 ADMIN INFLUENZA VIRUS VAC CPT-4: G0008 03/26/2012 FLULAVAL VACC, 3 YRS & >, IM CPT-4: Q2036 03/26/2012 Pneumococcal Polysaccharide Vaccine, 23-Valent, Ad CPT-4: 39092 03/26/2012 ROUTINE VENIPUNCTURE CPT- 4: 42161 01/08/2012 ROUTINE VENIPUNCTURE CPT- 4: 59305 11/06/2011 ROUTINE VENIPUNCTURE CPT- 4: 84297 10/25/2011 ROUTINE VENIPUNCTURE CPT- 4: 04885 10/16/2011 ROUTINE VENIPUNCTURE CPT- 4: 72112 09/25/2011 INJ TRIGGER POINT 1/2 MUSCL CPT-4: 66030 07/31/2011 TRIAMCINOLONE ACET INJ NOS CPT-4: J3301 07/31/2011 PRESCRIP TRANSMIT VIA ERX SY CPT-4: G8553 05/22/2011 ADMIN INFLUENZA VIRUS VAC CPT-4: G0008 05/02/2011 FLULAVAL VACC, 3 YRS & >, IM CPT-4: Q2036 05/02/2011 ROUTINE VENIPUNCTURE CPT- 4: 43587 05/02/2011 Vital Signs Date Vital 01/21/2018 Blood Pressure 1: 132/78 Code: 8480-6 BMI: 28.7 Code: 60381-7 Heart Rate 1: 112 bpm Height: 5'1" SpO2: 98% Weight: 152 lbs 12/04/2017 Blood Pressure 1: 140/74 Code: 8480-6 BMI: 27.6 Code: 45042-3 Heart Rate 1: 76 bpm Height: 5'1" SpO2: 97% Weight: 146 lbs 11/13/2017 Blood Pressure 1: 166/78 Code: 8480-6 BMI: 27.4 Code: 44556-2 Heart Rate 1: 78 bpm Height: 5'1" SpO2: 98% Weight: 145 lbs 10/30/2017 Blood Pressure 1: 148/72 Code: 8480-6 BMI: 27.8 Code: 66062-9 Heart Rate 1: 92 bpm Height: 5'1" SpO2: 96% Weight: 147 lbs 09/20/2017 Blood Pressure 1: 146/68 Code: 8480-6 BMI: 28.2 Code: 44175-5 Heart Rate 1: 66 bpm Height: 5'1" SpO2: 99% Weight: 149 lbs 05/29/2017 Blood Pressure 1: 156/82 Code: 8480-6 BMI: 28.7 Code: 29116-1 Heart Rate 1: 71 bpm Height: 5'1" SpO2: 96% Weight: 152 lbs 05/14/2017 Blood Pressure 1: 150/88 Code: 8480-6 BMI: 28.5 Code: 27737-0 Heart Rate 1: 71 bpm Height: 5'1" SpO2: 98% Weight: 151 lbs 03/06/2017 Blood Pressure 1: 148/66 Code: 8480-6 BMI: 28.5 Code: 81818-1 Heart Rate 1: 78 bpm Height: 5'1" SpO2: 98% Weight: 151 lbs 11/01/2016 Blood Pressure 1: 150/84 Code: 8480-6 BMI: 29.1 Code: 48995-6 Heart Rate 1: 71 bpm Height: 5'1" SpO2: 97% Weight: 154 lbs 10/18/2016 Blood Pressure 1: 156/98 Code: 8480-6 Heart Rate 1: 68 bpm Height: 5'1" SpO2: 98% Weight: 10/12/2016 Blood Pressure 1: 142/76 Code: 8480-6 BMI: 30.0 Code: 26683-8 Heart Rate 1: 76 bpm Height: 5'1" SpO2: 95% Weight: 159 lbs 09/04/2016 Blood Pressure 1: 120/70 Code: 8480-6 Blood Pressure 1: 148/84 Code: 8480-6 BMI: 30.0 Code: 60064-6 Heart Rate 1: 72 bpm Height: 5'1" SpO2: 94% Weight: 159 lbs 05/30/2016 Blood Pressure 1: 152/84 Code: 8480-6 BMI: 29.9 Code: 79011-8 Heart Rate 1: 76 bpm Height: 5'1" SpO2: 97% Weight: 158 lbs 8 oz 05/01/2016 Blood Pressure 1: 146/60 Code: 8480-6 BMI: 29.9 Code: 46208-1 Heart Rate 1: 72 bpm Height: 5'1" SpO2: 97% Weight: 158 lbs 02/29/2016 Blood Pressure 1: 152/82 Code: 8480-6 BMI: 30.4 Code: 05524-9 Heart Rate 1: 71 bpm Height: 5'1" SpO2: 96% Weight: 161 lbs 02/03/2016 Blood Pressure 1: 148/88 Code: 8480-6 BMI: 30.6 Code: 59157-8 Heart Rate 1: 72 bpm Height: 5'1" SpO2: 98% Weight: 162 lbs 12/21/2015 Blood Pressure 1: 180/78 Code: 8480-6 BMI: 30.9 Code: 09663-2 Heart Rate 1: 64 bpm Height: 5'1" SpO2: 97% Weight: 163 lbs 8 oz 10/25/2015 Blood Pressure 1: 150/78 Code: 8480-6 BMI: 31.0 Code: 33435-6 Heart Rate 1: 73 bpm Height: 5'1" SpO2: 98% Weight: 164 lbs 10/19/2015 Blood Pressure 1: 122/72 Code: 8480-6 BMI: 31.6 Code: 40922-2 Heart Rate 1: 88 bpm Height: 5'1" SpO2: 98% Weight: 167 lbs 06/22/2015 Blood Pressure 1: 150/82 Code: 8480-6 BMI: 31.4 Code: 48242-7 Heart Rate 1: 86 bpm Height: 5'1" SpO2: 96% Weight: 166 lbs 12/22/2014 Blood Pressure 1: 160/92 Code: 8480-6 BMI: 31.2 Code: 38875-7 Heart Rate 1: 85 bpm Height: 5'1" SpO2: 97% Weight: 165 lbs 08/17/2014 Blood Pressure 1: 138/80 Code: 8480-6 BMI: 31.6 Code: 07429-6 Heart Rate 1: 77 bpm Height: 5'1" SpO2: 97% Weight: 167 lbs 04/13/2014 Blood Pressure 1: 144/88 Code: 8480-6 BMI: 31.6 Code: 83556-0 Heart Rate 1: 90 bpm Height: 5'1" Weight: 167 lbs 12/11/2013 Blood Pressure 1: 168/90 Code: 8480-6 BMI: 32.3 Code: 76852-8 Heart Rate 1: 72 bpm Height: 5'1" Weight: 171 lbs 11/10/2013 Blood Pressure 1: 150/80 Code: 8480-6 BMI: 32.3 Code: 44765-2 Heart Rate 1: 76 bpm Height: 5'1" Weight: 171 lbs 08/11/2013 Blood Pressure 1: 152/80 Code: 8480-6 BMI: 32.5 Code: 84190-1 Heart Rate 1: 92 bpm Height: 5'1" Temperature: 36.7 (C) / 98.0 (F) Weight: 172 lbs 05/12/2013 Blood Pressure 1: 142/102 Code: 8480-6 Blood Pressure 2: 144/98 Code: 8480-6 BMI: 34.2 Code: 97355-8 Heart Rate 1: 80 bpm Height: 5'1" Weight: 181 lbs 01/06/2013 Blood Pressure 1: 138/76 Code: 8480-6 BMI: 34.6 Code: 03304-0 Heart Rate 1: 64 bpm Height: 5'1" Weight: 183 lbs 10/07/2012 Blood Pressure 1: 146/76 Code: 8480-6 BMI: 35.6 Code: 22195-4 Heart Rate 1: 76 bpm Height: 5'1" Respiratory Rate: 20 bpm Weight: 188 lbs 8 oz 09/11/2012 Blood Pressure 1: 158/92 Code: 8480-6 BMI: 35.7 Code: 95880-8 Heart Rate 1: 76 bpm Height: 5'1" Weight: 189 lbs 07/15/2012 Blood Pressure 1: 158/100 Code: 8480-6 BMI: 36.3 Code: 06565-9 Heart Rate 1: 72 bpm Height: 5'1" Respiratory Rate: 20 bpm Weight: 192 lbs 05/02/2012 Blood Pressure 1: 156/80 Code: 8480-6 BMI: 35.9 Code: 55522-4 Heart Rate 1: 72 bpm Height: 5'1" Weight: 190 lbs 03/28/2012 Blood Pressure 1: 133/88 Code: 8480-6 Heart Rate 1: 78 bpm Weight: 189 lbs 11/27/2011 Blood Pressure 1: 178/80 Code: 8480-6 BMI: 36.7 Code: 48589-0 Heart Rate 1: 72 bpm Height: 5'1" Respiratory Rate: 20 bpm Weight: 194 lbs 10/25/2011 Blood Pressure 1: 122/62 Code: 8480-6 BMI: 37.0 Code: 30739-0 Heart Rate 1: 80 bpm Height: 5'1" [...] 2: / Code: 8480-6 BMI: 37.1 Code: 36460-5 Heart Rate 1: 72 bpm Height: 5'1" Respiratory Rate: 16 bpm SpO2: % Temperature: .0 (C) / 32.0 (F) Weight: 196 lbs 8 oz 05/22/2011 Blood Pressure 1: 147/71 Code: 8480-6 BMI: 18.7 Code: 31335-2 Heart Rate 1: 77 bpm Height: 7'1" Weight: 192 lbs 05/05/2011 Blood Pressure 1: 178/88 Code: 8480-6 BMI: 37.4 Code: 59425-8 Heart Rate 1: 80 bpm Height: 5' Respiratory Rate: 16 bpm Weight: 193 lbs Functional Status No Functional Status data History of Present Illness Symptom Name Status Result Effective Date Notes hypertension Quality primary hypertension 01/21/2018 None hypertension [...] Present Encounters Encounter Performer Location Codes Date ([id number]) 08553 EST. PATIENT, LEVEL IV Diagnosis: Type 2 diabetes mellitus without complications[ICD10: E11.9] Diagnosis: Paroxysmal atrial fibrillation[ICD10: I48.0] Diagnosis: Essential (primary) hypertension[ICD10: I10] Clarice Elaine MD, [facility] CPT-4: 27227 01/21/2018 ([id number]) 27418 EST. PATIENT, LEVEL III Diagnosis: Paroxysmal atrial fibrillation[ICD10: I48.0] Diagnosis: Other specified anemias[ICD10: D64.89] Clarice Elaine MD, [facility] CPT-4: 67763 12/04/2017 ([id number]) 69455 EST. PATIENT, LEVEL IV Diagnosis: Benign paroxysmal vertigo, bilateral[ICD10: H81.13] Diagnosis: Essential (primary) hypertension[ICD10: I10] Diagnosis: Other fatigue[ICD10: R53.83] Diagnosis: Other specified anemias[ICD10: D64.89] Diagnosis: Other allergic rhinitis[ICD10: J30.89] Socorro Elaine MD, [facility] CPT-4: 70572 11/13/2017 ([id number]) 73082 EST. PATIENT, LEVEL III Diagnosis: Mild intermittent asthma with (acute) exacerbation[ICD10: J45.21] Diagnosis: Cough[ICD10: R05] Socorro Elaine MD, [facility] CPT-4: 86590 10/30/2017 ([id number]) 44504 EST. PATIENT, LEVEL IV Diagnosis: Gastro-esophageal reflux disease without esophagitis[ICD10: K21.9] Diagnosis: Type 2 diabetes mellitus without complications[ICD10: E11.9] Diagnosis: Other specified anemias[ICD10: D64.89] Diagnosis: Paroxysmal atrial fibrillation[ICD10: I48.0] Socorro Elaine MD, [facility] CPT-4: 93564 09/20/2017 ([id number]) 31451 EST. PATIENT, LEVEL III Diagnosis: Essential (primary) hypertension[ICD10: I10] Clarice Elaine MD, [facility] CPT-4: 35281 05/29/2017 ([id number]) 38324 EST. PATIENT, LEVEL III Diagnosis: Acute bronchitis due to other specified organisms[ICD10: J20.8] Diagnosis: Cough[ICD10: R05] Diagnosis: Other chest pain[ICD10: R07.89] Clarice Elaine MD, [facility] CPT-4: 75618 05/14/2017 ([id number]) 41320 EST. PATIENT, LEVEL IV Diagnosis: Type 2 diabetes mellitus with hyperglycemia[ICD10: E11.65] Diagnosis: Essential (primary) hypertension[ICD10: I10] Diagnosis: Mild intermittent asthma with (acute) exacerbation[ICD10: J45.21] Clarice Elaine MD [facility] CPT-4: 06343 03/06/2017 ([id number]) 09374 EST. 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 PATIENT, LEVEL III Diagnosis: Mild intermittent asthma with (acute) exacerbation[ICD10: J45.21] Diagnosis: Gastro-esophageal reflux disease without esophagitis[ICD10: K21.9] Jayne Elaine MD [facility] CPT-4: 07032 10/12/2016 ([id number]) 28616 EST. PATIENT, LEVEL IV Diagnosis: Type 2 diabetes mellitus with hyperglycemia[ICD10: E11.65] Diagnosis: Essential (primary) hypertension[ICD10: I10] Diagnosis: Mild intermittent asthma with (acute) exacerbation[ICD10: J45.21] Clarice Elaine MD [facility] CPT-4: 95377 09/04/2016 71374 EST. PATIENT, LEVEL III Diagnosis: Pain in left ankle and joints of left foot[ICD10: M25.572] Diagnosis: Localized edema[ICD10: R60.0] Jayne Elaine MD [facility] CPT-4: 69045 05/30/2016 ([id number]) 03414 EST. PATIENT, LEVEL III Diagnosis: Type 2 diabetes mellitus with hyperglycemia[ICD10: E11.65] Clarice Elaine MD [facility] CPT-4: 19427 05/01/2016 ([id number]) 91765 EST. PATIENT, LEVEL IV Diagnosis: Type 2 diabetes mellitus without complications[ICD10: E11.9] Diagnosis: Moderate persistent asthma, uncomplicated[ICD10: J45.40] Diagnosis: Paroxysmal atrial fibrillation[ICD10: I48.0] Clarice Elaine MD, [facility] CPT-4: 59966 02/29/2016 [id number]) 55661 EST. PATIENT, LEVEL IV Diagnosis: Paroxysmal atrial fibrillation[ICD10: I48.0] Diagnosis: Hypothyroidism, unspecified[ICD10: E03.9] Diagnosis: Type 2 diabetes mellitus without complications[ICD10: E11.9] Diagnosis: Essential (primary) hypertension[ICD10: I10] Diagnosis: Acute maxillary sinusitis, unspecified[ICD10: J01.00] Diagnosis: Moderate persistent asthma, uncomplicated[ICD10: J45.40] Clarice Elaine MD, [facility] CPT-4: 06765 02/03/2016 ([id number]) 11171 EST. PATIENT, LEVEL IV Diagnosis: Type 2 diabetes mellitus without complications[ICD10: E11.9] Diagnosis: Hypothyroidism, unspecified[ICD10: E03.9] Diagnosis: Moderate persistent asthma, uncomplicated[ICD10: J45.40] Diagnosis: Essential (primary) hypertension[ICD10: I10] Clarice Elaine MD, [facility] CPT-4: 91343 12/21/2015 ([id number] 53751 EST. 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 PATIENT, LEVEL IV Diagnosis: Type 2 diabetes mellitus without complications[ICD10: E11.9] Diagnosis: Essential (primary) hypertension[ICD10: I10] Diagnosis: Hypothyroidism, unspecified[ICD10: E03.9] Clarice Elaine MD, [facility] CPT-4: 12979 06/22/2015 ([id number]) 84841 EST. PATIENT, LEVEL IV Diagnosis: ESSENTIAL HYPERTENSION[ICD9: 401.9] Diagnosis: DIABETES TYPE II[ICD9: 250.00] Clarice Elaine MD [facility] CPT-4: 72186 12/22/2014 ([id number]) 72114 EST. PATIENT, LEVEL IV Diagnosis: ACUTE BRONCHITIS[ICD9: 466.0] Diagnosis: Acute asthma exacerbation[ICD9: 493.92] Diagnosis: ESSENTIAL HYPERTENSION[ICD9: 401.9] Diagnosis: DIABETES TYPE II[ICD9: 250.00] Clarice Elaine MD [facility] CPT-4: 37842 08/17/2014 ([id number]) 82941 EST. PATIENT, LEVEL IV Diagnosis: DIABETES TYPE II[ICD9: 250.00] Diagnosis: ESSENTIAL HYPERTENSION[ICD9: 401.9] Diagnosis: Acute asthma exacerbation[ICD9: 493.92] Clarice Elaine MD [facility] CPT-4: 45546 04/13/2014 ([id number]) 05314 EST. PATIENT, LEVEL IV Diagnosis: DIABETES TYPE II[ICD9: 250.00] Diagnosis: ESSENTIAL HYPERTENSION[ICD9: 401.9] Diagnosis: HYPOTHYROIDISM[ICD9: 244.9] Clarice Elaine MD [facility] CPT-4: 28069 12/11/2013 ([id number]) 65156 EST. PATIENT, LEVEL IV Diagnosis: DM W/O COMPLICATION TYPE II, UNCONTROLLED[ICD9: 250.02] Diagnosis: ESSENTIAL HYPERTENSION[ICD9: 401.9] Clarice Elaine MD [facility] CPT- 4: 58316 11/10/2013 ([id number]) 14153 EST. PATIENT, LEVEL IV Diagnosis: DM W/O COMPLICATION TYPE II, UNCONTROLLED[SNOMED: 68766499] Diagnosis: ESSENTIAL HYPERTENSION[SNOMED: 97588461] Diagnosis: ACUTE BRONCHITIS[ICD9: 466.0] Clarice Elaine MD, [facility] CPT-4: 34091 08/11/2013 ([id number]) 03254 EST. PATIENT, LEVEL IV Diagnosis: DM W/O COMPLICATION TYPE II, UNCONTROLLED[SNOMED: 50329349] Diagnosis: ATRIAL FIBRILLATION[ICD9: 427.31] Diagnosis: ESSENTIAL HYPERTENSION[SNOMED: 22327394] Clarice Elaine MD [facility] CPT-4: 26437 05/12/2013 ([id number]) 20836 EST. PATIENT, LEVEL IV Diagnosis: DM W/O COMPLICATION TYPE II, UNCONTROLLED[SNOMED: 58656555] Diagnosis: ESSENTIAL HYPERTENSION[SNOMED: 14373277] Clarice Elaine MD [facility] CPT-4: 99126 01/06/2013 ([id number]) 99383 EST. PATIENT, LEVEL IV Diagnosis: DIABETES TYPE II[SNOMED: 111068884] Diagnosis: ESSENTIAL HYPERTENSION[SNOMED: 30350443] Diagnosis: Acute asthma exacerbation[ICD9: 493.92] Diagnosis: Fatigue[ICD9: 780.79] Clarice Elaine MD [facility] CPT-4: 26442 10/07/2012 ([id number]) 62362 EST. PATIENT, LEVEL IV Diagnosis: DM W/O COMPLICATION TYPE II, UNCONTROLLED[SNOMED: 50845802] Diagnosis: Lump of breast, right[ICD9: 611.72] Diagnosis: Lump on neck[ICD9: 784.2] Clarice Elaine MD [facility] CPT-4: 18265 09/11/2012 ([id number]) 13218 EST. PATIENT, LEVEL IV Diagnosis: ESSENTIAL HYPERTENSION[SNOMED: 50978963] Diagnosis: Atrial fibrillation[ICD9: 427.31] Diagnosis: Fatigue[ICD9: 780.79] Diagnosis: Encounter for monitoring digoxin therapy[ICD9: V58.83] Clarice Elaine MD [facility] CPT-4: 72981 07/15/2012 ([id number]) 71064 EST. PATIENT, LEVEL IV Diagnosis: DIABETES TYPE II[SNOMED: 709814315] Diagnosis: ESSENTIAL HYPERTENSION[SNOMED: 01114165] Clarice Elaine MD [facility] CPT-4: 11745 05/02/2012 ([id number]) 09441 EST. PATIENT, LEVEL IV Diagnosis: DM W/O COMPLICATION TYPE II, UNCONTROLLED[SNOMED: 05495182] Diagnosis: ESSENTIAL HYPERTENSION[SNOMED: 04255335] Diagnosis: HYPERLIPIDEMIA[ICD9: 272.4] Clarice Elaine MD [facility] CPT-4: 52652 03/28/2012 ([id number]) 85422 EST. PATIENT, LEVEL IV Diagnosis: DM W/O COMPLICATION TYPE II, UNCONTROLLED[SNOMED: 40421794] Diagnosis: ESSENTIAL HYPERTENSION[SNOMED: 66641191] Clarice Elaine MD [facility] CPT-4: 74541 11/27/2011 ([id number]) 71695 EST. PATIENT, LEVEL III Diagnosis: ESSENTIAL HYPERTENSION[SNOMED: 20065438] Diagnosis: ANEMIA[ICD9: 285.9] Diagnosis: Gastritis[ICD9: 535.50] Clarice Elaine MD [facility] CPT-4: 64348 10/25/2011 ([id number]) 25257 EST. PATIENT, LEVEL III Diagnosis: Anemia associated with acute blood loss[ICD9: 285.1] Diagnosis: Gastritis, acute with hemorrhage[ICD9: 535.01] Clarice Elaine MD [facility] CPT-4: 10955 10/11/2011 ([id number]) 59785 EST. PATIENT, LEVEL IV Diagnosis: Hematochezia[ICD9: 578.1] Diagnosis: ENCNTR LONG-RX USE NEC[ICD9: V58.69] Diagnosis: Abdominal pain[ICD9: 789.00] Clarice Elaine MD [facility] CPT-4: 86215 10/04/2011 ([id number]) 99500 EST. PATIENT, LEVEL IV Diagnosis: DIABETES TYPE II[SNOMED: 680505848] Diagnosis: ESSENTIAL HYPERTENSION[SNOMED: 30664309] Diagnosis: Coronary artery disease[ICD9: 414.00] Clarice Elaine MD [facility] CPT-4: 64618 09/25/2011 ([id number]) 65638 EST. PATIENT, LEVEL IV Diagnosis: Muscle spasm[ICD9: 728.85] Diagnosis: Arthralgia[ICD9: 719.40] Diagnosis: ESSENTIAL HYPERTENSION[SNOMED: 08385857] Clarice Elaine MD [facility] CPT-4: 21139 07/31/2011 08452 EST. PATIENT, LEVEL III Diagnosis: ACUTE SINUSITIS[ICD9: 461.9] Diagnosis: Cervicalgia[ICD9: 723.1] Socorro Elaine MD, [facility] CPT-4: 09911 05/22/2011 12027 EST. PATIENT, LEVEL IV Diagnosis: HYPERLIPIDEMIA[ICD9: 272.4] Diagnosis: HYPOTHYROIDISM[ICD9: 244.9] Diagnosis: DM W/O COMPLICATION TYPE II, UNCONTROLLED[SNOMED: 38065901] Clarice Elaine MD, [facility] CPT-4: 17166 05/05/2011 Plan of Care Planned Activity Notes Codes Status Date Visit Plan: Diabetes Mellitus - controlled - [...] becoming uncontrolled. 01/21/2018 [phone] ([facility] min[facility] Moderate 01/21/2018 Patient Education: [...] IV. 12/04/2017 App[facility]ment[facility] [phone] [facility] ([facility] min) Moderate 12/04/2017 Patient Education: [...] instructions/medication interventions. HTN- elevated today-monitor at home Ddvxtu-djxbkfu-ruhgj labs Allergies-add flonase nasal spray 11/13/2017 Visit Plan: BPPV - Benign Paroxysmal Positional Vertigo - discussed diagnosis with the patient, offered the pt the appropriate additional information in hand-out. Pt instructed in home exercises to help alleviate and prevent future recurrent episodes of vertigo. Pt informed that if symptoms worsen, call the office for further instructions/medication interventions. HTN- elevated today-monitor at home Fpjavt-dpmmfyg-wvpco labs Allergies-add flonase nasal spray 11/13/2017 App[facility]ment[phone] [phone] (30 min) Complex 11/13/2017 Patient Education: Patient [...] acute changes. 10/30/2017 Appointment[facility] [phone] [phone] (30 min) Complex 10/30/2017 Patient Education: Patient Medication Summary Completed 10/30/2017 [facility]ment[facility] [phone] [facility] ([facility] min) Moderate 09/25/2017 Visit Plan: GERD-continue [...] Hgb A1C 09/20/2017 Appointment: Socorro Salmeron WPtel: [phone] (30 min) Complex 09/20/2017 Patient Education: Patient Medication Summary Completed 09/20/2017 Appointment: Clarice Elaine WPtel: [facility] (15 min) Moderate 06/26/2017 Visit Plan: Hypertension [...] removal process. 05/29/2017 Appointment: Clarice Elaine WPtel: [facility] (15 min) Moderate 05/29/2017 Patient Education: Patient Medication Summary Completed 05/29/2017 Patient Education: Hypertension Completed 05/29/2017 Visit Plan: Bronchitis - acute case of bronchitis identified. Pt has been given antibiotics, breathing treatments as appropriate, and pt has been instructed to call if symptoms are not improved, or if symptoms acutely worsen. Chest pain - chest wall - toradol shot hospira [id number] november 2018 05/14/2017 Visit Plan: Bronchitis - acute case of bronchitis identified. Pt has been given antibiotics, breathing treatments as appropriate, and pt has been instructed to call if symptoms are not improved, or if symptoms acutely worsen. Chest pain - chest wall - toradol shot [facility] [id number] november 2018 05/14/2017 Appointment: Clarice Elaine WPtel: [address] [place], [place] [id number] (15 min) Moderate 05/14/2017 Patient Education: Patient [...] clinic today. 03/06/2017 Appointment: Clarice Elaine WPtel: [phone] [facility] (15 min) Moderate 03/06/2017 Patient Education: Patient Medication Summary Completed 03/06/2017 Patient Education: Hypertension Completed 03/06/2017 Appointment: Clarice Elaine WPtel: [facility]3 [id number] (15 min) Moderate 12/05/2016 Visit Plan: Hypertension [...] current treatment. 11/01/2016 Appointment: Clarice Elaine WPtel: [facility]8 [facility] (15 min) Moderate 11/01/2016 Patient Education: [...] ACUTE ILLNESS. 10/18/2016 Appointment: Clarice Elaine WPtel: [facility]7 [facility] (15 min) Moderate 10/18/2016 Patient Education: [...] acute changes 10/12/2016 Appointment: Jayne Ragland WPtel: [id number] (30 min) Complex 10/12/2016 Patient Education: Patient [...] home. 09/04/2016 Appointment: Clarice Elaine WPtel: [phone] [facility] (15 min) Moderate 09/04/2016 Patient Education: Patient Medication Summary Completed 09/04/2016 Patient Education: Obesity Completed 09/04/2016 Patient Education: Hypertension Completed 09/04/2016 Appointment: Jayne Ragland WPtel: [phone] [facility] [facility] - Annual Wellness Visit 06/08/2016 Visit [...] glucose control. 05/01/2016 Appointment: Clarice Elaine WPtel: [phone] [facility]66[facility] (15 min) Moderate 05/01/2016 Patient Education: Patient [...] acute changes 02/29/2016 Appointment: Clarice Elaine WPtel: [facility]8 [facility] Surgical Procedure 02/29/2016 Patient Education: Patient Medication [...] readings. 12/21/2015 Appointment: [phone] (15 min) Moderate 12/21/2015 Patient Education: [...] shot today 10/25/2015 Appointment: Clarice Elaine [facility]Ptel[phone] [facility] (15 min) Moderate 10/25/2015 Patient Education: [...] ACUTE ILLNESS. 10/19/2015 Appointment: Socorro Salmeron [facility]el[phone] (30 min) Complex 10/19/2015 Patient Education: Patient [...] at home. 08/17/2014 Appointment: Clarice Elaine WPtel: [address] [place], [place] [id number] Follow up 08/17/2014 Patient Education: Patient Medication [...] albuterol. 04/13/2014 Appointment: Clarice Elaine [facility]Ptel[phone] [facility] Follow [facility] 04/13/2014 Patient Education: Patient [...] control. 12/11/2013 Appointment: Clarice Elaine [facility]Ptel[phone] [facility] Follow up 12/11/2013 Patient Education: Patient [...] concerns. 11/10/2013 Appointment: Clarice Elaine [facility]Ptel[phone] [facility] [place] Follow up 11/10/2013 Patient Education: Patient Medication Summary Completed 11/10/2013 Patient Education: Hypertension Completed 11/10/2013 Appointment: Clarice Elaine [facility]Ptel[phone] [facility] [place] Lab Draw 11/04/2013 Patient Education: [...] patient's pharmacy. 08/11/2013 Appointment: Clarice Elaine WPtel[phone] [facility] [place] Follow up 08/11/2013 Patient Education: [...] today 05/12/2013 Appointment: Clarice Elaine WPtel[phone] [facility] Follow [facility] 05/12/2013 Patient Education: Patient [...] glucose control. 01/06/2013 Appointment: Clarice Elaine WPtel: [phone] [facility] [place] Follow up 01/06/2013 Patient Education: [...] shot today. 10/07/2012 Appointment: Clarice Elaine [facility]Ptel[phone] [facility] Follow [facility] 10/07/2012 Patient Education: Patient [...] ultrasound 09/11/2012 Appointment: Clarice Elaine [facility]Ptel[phone] [facility] Follow [facility] 09/11/2012 Patient Education: Patient [...] digoxin level. 07/15/2012 Appointment: Clarice Elaine WPtel: [phone] [facility] Follow [facility] 07/15/2012 Patient Education: Patient [...] Plavix. 05/02/2012 Appointment: Clarice Elaine [facility]Ptel: [phone] [facility] [place] Follow up 05/02/2012 Patient Education: [...] COMPELTELY. 03/28/2012 Appointment: Clarice Elaine WPtel: [phone] [facility] [place] Follow up 03/28/2012 Patient Education: [...] at home. 11/27/2011 Appointment: Clarice Elaine WPtel: [facility]6 [place] [phone] Follow up 11/27/2011 Patient Education: Patient Medication Summary Completed 11/27/2011 Patient Education: High Blood Pressure: Essential Hypertension Completed 11/27/2011 Patient Education: Patient Medication Summary Completed 11/06/2011 Appointment: Clarice Elaine WPtel: [address] [place], [place] [phone] Other 11/03/2011 Appointment: Clarice Elaine WPtel: [address] [place], [place] [phone] Other 11/02/2011 Appointment: Clarice Elaine WPtel: [address] [place], [place] [phone] Lab Draw 10/31/2011 Visit Plan: Hypertension - [...] times daily. 10/25/2011 Appointment: Clarice Elaine WPtel: [facility] Follow up 10/25/2011 Patient Education: Patient Medication Summary Completed 10/25/2011 Patient Education: High Blood Pressure: Essential Hypertension Completed 10/25/2011 Appointment: Clarice Elaine WPtel: [address] [place], [place] [phone] Lab Draw 10/16/2011 Patient Education: Patient Medication [...] to 11.4 10/11/2011 Appointment: Clarice Elaine WPtel: [address] [place], [place] [phone] Other 10/11/2011 Patient Education: Patient Medication Summary Completed 10/11/2011 Appointment: Clarice Elaine WPtel: [address] [place], [place] [phone] Other 10/10/2011 Visit Plan: Abdominal pain and [...] remained stable. 10/04/2011 Appointment: Clarice Elaine WPtel: [facility]3 [facility] [facility] 10/04/2011 Patient Education: Patient Medication [...] improve. 09/25/2011 Appointment: Clarice Elaine WPtel: [address] [place] [address] Other 09/25/2011 Patient Education: Patient Medication Summary [...] not improve. 07/31/2011 Appointment: Clarice Elaine WPtel: [address] [place], [place] [id number] Other 07/31/2011 Patient Education: Patient Medication Summary [...] on use. 05/22/2011 Appointment: Socorro Salmeron WPtel: [facility]7 [phone] Other 05/22/2011 Patient Education: Patient Medication Summary [...] dose increased. 05/05/2011 Appointment: Clarice Elaine WPtel: [facility]5 [facility] Other 05/05/2011 Patient Education: Patient Medication Summary Completed 05/05/2011 Patient Education: High Cholesterol Completed 05/05/2011 Appointment: Clarice Elaine WPtel: [facility]5 [facility] [place] Other 05/04/2011 Appointment: Clarice Elaine WPtel: [address] [place], [place] [phone] [place] Lab Draw 05/02/2011 Patient Education: Patient [...] further instructions/medication interventions. HTN-elevated today-monitor at home Znyhxa-ydthkaw-twrfo labs Allergies-add flonase nasal spray CHECK LABS [...] further instructions/medication interventions. HTN-elevated today-monitor at home Rrljbh-tukwmzs-pjtte labs Allergies-add flonase nasal spray . Hypertension [...] changes. Steroid shot in clinic today. . DR. ELAINE IN TO SEE PT [...] ILLNESS. stop your current metformin - Dr. Chele is prescribing an extended release metformin that [...] the [facility] at [facility] . [...] - chest wall - toradol shot [facility] [id number] november 2018 . Bronchitis - acute case of bronchitis identified. Pt has been given antibiotics, breathing treatments as appropriate, and pt has been instructed to call if symptoms are not improved, or if symptoms acutely worsen. Chest pain - chest wall - toradol shot [facility]ira [id number] november 2018 . Asthma Exacerbation - Asthma [...] 10 days. come back to office on 2/11/14 for steroid injection. . Bronchitis - acute [...]
--- OUTSIDE RECORDS SUMMARY | 2018-12-28 05:14 | XMS REPORT | CCD ---
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 Unknown Has never used illegal drugs 05/05/2011 Allergies, Adverse Reactions, Alerts Substance Reaction Codes Entered Date Inactivated Date Status noroxin RxNorm: 7517 05/05/2011 No Inactive Date Active trovan RxNorm: 886204 05/05/2011 No Inactive Date Active * NO KNOWN FOOD ALLERGIES Unknown 05/05/2011 No Inactive Date Active PREDNISONE RxNorm: 8640 05/05/2011 No Inactive Date Active cephalexin RxNorm: 2231 05/05/2011 No Inactive Date Active theophylline RxNorm: 21115 05/05/2011 No Inactive Date Active azithromycin Unknown 10/11/2011 No Inactive Date Active Levaquin RxNorm: 87256 10/11/2011 No Inactive Date Active MORPHINE SULFATE [...] Fill Instructions Synthroid 88 mcg tablet RxNorm: 666897 TAKE 1 TABLET BY MOUTH ONCE DAILY 04/08/2018 No Stop Date Active amiodarone 200 mg tablet RxNorm: 985142 1/2 Tablet(s) PO BID 01/21/2018 No Stop Date Active Bactrim DS 800 mg-160 mg tablet RxNorm: 016790 1 Tablet(s) PO BID 01/03/2018 01/02/2018 Inactive take probiotic bid x 7 days Bactrim DS 800 mg-160 mg tablet RxNorm: 641339 1 Tablet(s) PO BID 01/03/2018 01/09/2018 Inactive take probiotic bid x 7 days nitrofurantoin 100 mg capsule RxNorm: 195432 1 Capsule(s) PO BID 12/31/2017 01/06/2018 Inactive nitrofurantoin 100 mg capsule RxNorm: 852421 1 Capsule(s) PO BID 12/31/2017 12/30/2017 Inactive nitrofurantoin 100 mg capsule RxNorm: 283711 1 Capsule(s) PO BID 12/31/2017 12/30/2017 Inactive glipizide 5 mg tablet RxNorm: 294352 TAKE ONE-HALF TABLET BY MOUTH TWICE DAILY 11/23/2017 No Stop Date Active meclizine 25 mg tablet RxNorm: 491569 1 Tablet(s) PO Q6 PRN 11/13/2017 No Stop Date Active Kenalog 40 mg/mL suspension for injection RxNorm: 1408586 1.5 Milliliter(s) Inj 10/30/2017 10/30/2017 Inactive Augmentin 875 mg-125 mg tablet RxNorm: 886308 1 Tablet(s) PO BID 10/30/2017 11/05/2017 Inactive Synthroid 88 mcg tablet RxNorm: 031849 TAKE ONE TABLET BY MOUTH ONCE DAILY 10/15/2017 04/07/2018 Inactive metformin 500 mg tablet RxNorm: 002466 TAKE ONE TABLET BY MOUTH WITH BREAKFAST AND ONE TABLET WITH LUNCH AND TWO TABLETS WITH SUPPER 10/15/2017 01/20/2018 Inactive albuterol sulfate 2.5 mg/3 mL (0.083 %) solution for nebulization RxNorm: 332332 USE ONE VIAL IN NEBULIZER 4 TIMES DAILY NEEDED FOR ASTHMA 08/16/2017 No Stop Date Active Plavix 75 mg tablet RxNorm: 169202 TAKE ONE TABLET BY MOUTH ONCE DAILY 06/25/2017 06/24/2017 Inactive Plavix 75 mg tablet RxNorm: 261548 1 Tablet(s) PO daily TAKE ONE TABLET BY MOUTH ONCE DAILY 06/25/2017 09/19/2017 Inactive acyclovir 800 mg tablet RxNorm: 006528 1 Tablet(s) PO QID 05/15/2017 05/14/2017 Inactive acyclovir 800 mg tablet RxNorm: 398524 1 Tablet(s) PO QID 05/15/2017 05/21/2017 Inactive tramadol 50 mg tablet RxNorm: 573855 1 Tablet(s) PO TID 05/15/2017 05/24/2017 Inactive ketorolac 60 mg/2 mL intramuscular solution RxNorm: 386545 2 Milliliter(s) IM 05/14/2017 05/14/2017 Inactive Augmentin 875 mg-125 mg tablet RxNorm: 425651 1 Tablet(s) PO BID 05/14/2017 05/23/2017 Inactive Synthroid 88 mcg tablet RxNorm: 432278 TAKE ONE TABLET BY MOUTH ONCE DAILY; NEED THYROID LABS DONE 04/16/2017 10/12/2017 Inactive Kenalog 40 mg/mL suspension for injection RxNorm: 9275980 Milliliter(s) Inj 03/06/2017 03/06/2017 Inactive metformin 500 mg tablet RxNorm: 535008 1 Tablet(s) UD 1 tab at breakfast, 1tab at lunch, 2 tab at supper 03/06/2017 09/01/2017 Inactive glipizide 5 mg tablet RxNorm: 389600 TAKE ONE-HALF TABLET BY MOUTH TWICE DAILY 02/23/2017 11/19/2017 Inactive Synthroid 88 mcg tablet RxNorm: 486862 Tablet(s) PO TAKE ONE TABLET BY MOUTH DAILY 01/17/2017 04/15/2017 Inactive Needs thyroid labs done Plavix 75 mg tablet RxNorm: 256255 TAKE ONE TABLET BY MOUTH ONCE DAILY 12/25/2016 06/22/2017 Inactive Kenalog 40 mg/mL suspension for injection RxNorm: 2169194 1.5 Milliliter(s) Inj 09/04/2016 09/04/2016 Inactive Janumet XR 100 mg-1,000 mg tablet,extended release RxNorm: 5033168 1 Tablet(s) PO daily 09/04/2016 03/02/2017 Inactive glipizide 5 mg tablet RxNorm: 041486 TAKE ONE-HALF TABLET BY MOUTH TWICE DAILY 08/24/2016 02/19/2017 Inactive Janumet XR 50 mg-1,000 mg tablet,extended release RxNorm: 9662100 TAKE ONE TABLET BY MOUTH ONCE DAILY 05/29/2016 09/03/2016 Inactive metoprolol tartrate 25 mg tablet RxNorm: 769855 1/4 Tablet(s) PO BID 05/01/2016 05/29/2016 Inactive glipizide 5 mg tablet RxNorm: 639720 TAKE ONE-HALF TABLET BY MOUTH TWICE DAILY 02/21/2016 08/18/2016 Inactive ProAir HFA 90 mcg/actuation aerosol inhaler RxNorm: 138771 2 Puff(s) INH PRN as needed ASTHMA 02/03/2016 03/03/2016 Inactive Accu-Chek Active Test strips RxNorm: 1 test Miscellaneous daily 02/03/2016 08/25/2019 Active DX250.00 albuterol sulfate 2.5 mg/3 mL (0.083 %) solution for nebulization RxNorm: 784840 1 Milliliter(s) INH QID as needed ASTHMA 02/03/2016 06/01/2016 Inactive Janumet XR 50 mg-1,000 mg tablet,extended release RxNorm: 2070266 1 Tablet(s) PO daily 02/03/2016 05/28/2016 Inactive Augmentin 875 mg-125 mg tablet RxNorm: 112146 1 Tablet(s) PO BID 02/03/2016 02/12/2016 Inactive sucralfate 1 gram tablet RxNorm: 720257 1 Tablet(s) PO QID - take 30 minutes before meals and before supper 12/21/2015 04/18/2016 Inactive metformin ER 500 mg tablet,extended release 24 hr RxNorm: 110547 1 Tablet(s) PO BID 12/21/2015 02/02/2016 Inactive digoxin 250 mcg tablet RxNorm: 680389 1 Tablet(s) PO daily 12/21/2015 01/20/2018 Inactive Synthroid 88 mcg tablet RxNorm: 324878 Tablet(s) PO TAKE ONE TABLET BY MOUTH DAILY 12/20/2015 01/16/2017 Inactive Plavix 75 mg tablet RxNorm: 482862 1 Tablet(s) PO daily 12/20/2015 12/13/2016 Inactive Kenalog 40 mg/mL suspension for injection RxNorm: 9464490 1 Milliliter(s) Inj 11/11/2015 11/11/2015 Inactive Kenalog 40 mg/mL suspension for injection RxNorm: 0245401 1 Milliliter(s) Inj 10/25/2015 10/25/2015 Inactive metformin 500 mg tablet RxNorm: 147116 2 Tablet(s) PO BID 07/16/2015 12/20/2015 Inactive metformin 500 mg tablet RxNorm: 452546 TAKE TWO TABLETS BY MOUTH TWICE DAILY 07/16/2015 12/20/2015 Inactive albuterol sulfate 2.5 mg/3 mL (0.083 %) solution for nebulization RxNorm: 155462 1 Milliliter(s) INH QID as needed ASTHMA 07/14/2015 11/10/2015 Inactive glipizide 5 mg tablet RxNorm: 113412 1/2 Tablet(s) PO BID 02/03/2015 01/28/2016 Inactive Symbicort 160 mcg-4.5 mcg/actuation HFA aerosol inhaler RxNorm: 8724922 1 INH 01/06/2015 No Stop Date Active metformin 500 mg tablet RxNorm: 378973 2 Tablet(s) PO BID 12/22/2014 06/19/2015 Inactive Plavix 75 mg tablet RxNorm: 314676 1 Tablet(s) PO daily 12/02/2014 11/26/2015 Inactive note directions of one per day Synthroid 88 mcg tablet RxNorm: 020290 1 Tablet(s) PO daily TAKE ONE TABLET BY MOUTH DAILY 12/02/2014 04/07/2018 Inactive Accu-Chek Active Test strips RxNorm: 1 test Miscellaneous daily 08/17/2014 02/02/2016 Inactive DX250.00 Kenalog 40 mg/mL suspension for injection RxNorm: 3779707 Milliliter(s) Inj 08/17/2014 08/17/2014 Inactive doxycycline hyclate 100 mg tablet RxNorm: 666277 1 Tablet(s) PO BID 08/17/2014 08/26/2014 Inactive albuterol sulfate 2.5 mg/3 mL (0.083 %) solution for nebulization RxNorm: 801124 1 Milliliter(s) INH QID as needed ASTHMA 08/17/2014 08/16/2014 Inactive albuterol sulfate 2.5 mg/3 mL (0.083 %) solution for nebulization RxNorm: 709828 1 Milliliter(s) INH QID as needed ASTHMA 08/17/2014 12/14/2014 Inactive doxycycline hyclate 100 mg tablet RxNorm: 885293 1 Tablet(s) PO BID 08/17/2014 08/16/2014 Inactive Accu-Chek Multiclix Lancet RxNorm: 1 Miscellaneous daily TEST BLOOD SUGAR EVERY DAY 08/17/2014 09/10/2015 Inactive DX 250.00 metformin 500 mg tablet RxNorm: 263532 TAKE TWO TABLETS BY MOUTH TWICE DAILY 06/23/2014 09/20/2014 Inactive metformin 500 mg tablet RxNorm: 502561 2 Tablet(s) PO BID 06/22/2014 12/18/2014 Inactive Bactrim DS 800 mg-160 mg tablet RxNorm: 585237 1 Tablet(s) PO BID 05/11/2014 05/17/2014 Inactive Bactrim DS 800 mg-160 mg tablet RxNorm: 777370 1 Tablet(s) PO BID 05/11/2014 05/10/2014 Inactive Kenalog 40 mg/mL suspension for injection RxNorm: 1317156 Milliliter(s) Inj 04/13/2014 04/13/2014 Inactive Accu-Chek Active Test strips RxNorm: 1 TEST MISCELLANEOUS BID 04/06/2014 10/22/2014 Inactive glipizide 5 mg tablet RxNorm: 992234 1/2 Tablet(s) PO BID 03/03/2014 02/02/2015 Inactive Synthroid 88 mcg tablet RxNorm: 125750 1 Tablet(s) PO daily TAKE ONE TABLET BY MOUTH DAILY 12/11/2013 12/01/2014 Inactive Plavix 75 mg tablet RxNorm: 666316 1 Tablet(s) PO daily 12/11/2013 12/01/2014 Inactive note directions of one per day glipizide 5 mg tablet RxNorm: 277120 1/2 Tablet(s) PO BID 11/10/2013 03/02/2014 Inactive Lipitor 10 mg tablet RxNorm: 150450 1 Tablet(s) PO daily 11/10/2013 12/21/2014 Inactive Accu-Chek Active Test strips RxNorm: strip miscellaneous TEST BLOOD SUGAR EVERY DAY 11/03/2013 No Stop Date Active Accu-Chek Multiclix Lancet RxNorm: misc miscellaneous TEST BLOOD SUGAR EVERY DAY 08/07/2013 08/16/2014 Inactive Accu-Chek Active Test strips RxNorm: strip miscellaneous TEST BLOOD SUGAR EVERY DAY 08/05/2013 No Stop Date Active digoxin 125 mcg tablet RxNorm: 759213 1 Tablet(s) PO daily 08/05/2013 10/28/2014 Inactive metformin 500 mg tablet RxNorm: 009452 2 Tablet(s) PO BID 06/12/2013 06/21/2014 Inactive metformin 500 mg tablet RxNorm: 517562 2 Tablet(s) PO BID 05/12/2013 06/11/2013 Inactive metformin 500 mg tablet RxNorm: 574494 Tablet(s) PO TAKE ONE & ONE-HALF TABLETS BY MOUTH TWICE DAILY 04/10/2013 05/11/2013 Inactive Synthroid 88 mcg tablet RxNorm: 515193 Tablet(s) PO TAKE ONE TABLET BY MOUTH DAILY 01/07/2013 12/19/2015 Inactive Synthroid 88 mcg tablet RxNorm: 615066 1 Tablet(s) PO daily TAKE ONE TABLET BY MOUTH DAILY 01/06/2013 12/10/2013 Inactive Plavix 75 mg tablet RxNorm: 333188 1 Tablet(s) PO daily 12/09/2012 12/03/2013 Inactive note directions of one per day Lipitor 80 mg tablet RxNorm: 507905 Tablet(s) PO TAKE 1 TABLET BY MOUTH EVERY DAY 10/28/2012 11/09/2013 Inactive Synthroid 88 mcg tablet RxNorm: 424206 Tablet(s) PO TAKE ONE TABLET BY MOUTH DAILY 10/07/2012 10/06/2012 Inactive Synthroid 88 mcg tablet RxNorm: 350455 1 Tablet(s) PO daily TAKE ONE TABLET BY MOUTH DAILY 10/07/2012 01/05/2013 Inactive Kenalog 40 mg/mL Susp for Injection RxNorm: 0771623 1 Milliliter(s) IM 10/07/2012 10/07/2012 Inactive digoxin 250 mcg tablet RxNorm: 0198682 1/2 Tablet(s) PO daily 07/15/2012 08/04/2013 Inactive Synthroid 88 mcg tablet RxNorm: 760865 Tablet(s) PO TAKE ONE TABLET BY MOUTH DAILY 06/28/2012 10/06/2012 Inactive Accu-Chek Multiclix Lancet RxNorm: Misc Miscellaneous 06/05/2012 No Stop Date Active TEST BLOOD SUGAR EVERY DAY Accu-Chek Active Test Strips RxNorm: Strip Miscellaneous 06/05/2012 No Stop Date Active TEST BLOOD SUGAR EVERY DAY Lipitor 80 mg tablet RxNorm: 033155 1/2 Tablet(s) PO daily 03/28/2012 No Stop Date Active TAKE 1 TABLET BY MOUTH EVERY DAY metformin 500 mg tablet RxNorm: 327848 1.5 Tablet(s) PO BID 03/28/2012 04/09/2013 Inactive Lipitor 80 mg tablet RxNorm: 536500 1/2 Tablet(s) PO 03/28/2012 08/16/2014 Inactive TAKE 1 TABLET BY MOUTH EVERY DAY Lipitor 80 mg tablet RxNorm: 313022 1/2 Tablet(s) PO daily 03/28/2012 No Stop Date Active TAKE 1 TABLET BY MOUTH EVERY DAY Influenza Virus Vaccine 0.5 mL RxNorm: IM 03/26/2012 03/26/2012 Inactive Pneumovax 23 25 mcg/0.5 mL Injection RxNorm: 306790 Milliliter(s) Inj 03/26/2012 03/26/2012 Inactive metformin 500 mg tablet RxNorm: 668076 1 Tablet(s) PO BID 11/27/2011 03/27/2012 Inactive Plavix 75 mg tablet RxNorm: 727741 1 Tablet(s) PO daily 11/01/2011 11/24/2012 Inactive note directions of one per day Lipitor 80 mg tablet RxNorm: 894521 Tablet(s) PO 10/18/2011 03/27/2012 Inactive TAKE 1 TABLET BY MOUTH EVERY DAY Protonix 40 mg Tab RxNorm: 134944 1 Tablet(s) PO BID 10/11/2011 12/20/2015 Inactive Accu-Chek Active Test Strips RxNorm: 1 test Miscellaneous daily 10/04/2011 08/16/2014 Inactive Carafate 1 gram Tab RxNorm: 344404 1 Tablet(s) PO QID 10/02/2011 10/31/2011 Inactive Carafate 1 gram Tab RxNorm: 500504 1 Tablet(s) PO TID 09/29/2011 09/28/2011 Inactive Carafate 1 gram Tab RxNorm: 876325 1 Tablet(s) PO TID 09/29/2011 10/01/2011 Inactive Kenalog 40 mg/mL Susp for Injection RxNorm: 3173030 2 Milliliter(s) Inj 07/31/2011 07/31/2011 Inactive Synthroid 88 mcg tablet RxNorm: 782130 1 Tablet(s) PO daily 06/06/2011 10/11/2011 Inactive Accu-Chek Active Test Strips RxNorm: 1 test Miscellaneous BID 06/05/2011 10/03/2011 Inactive Accu-Chek Multiclix Lancet RxNorm: 1 test Miscellaneous BID 06/02/2011 09/24/2011 Inactive Accu-Chek Active Test strips RxNorm: 1 test Miscellaneous BID 06/02/2011 06/04/2011 Inactive Bactrim DS 800 mg-160 mg Tab RxNorm: 442738 1 Tablet(s) PO BID 05/22/2011 05/31/2011 Inactive metformin 500 mg Tab RxNorm: 128309 1 Tablet(s) PO TID 05/05/2011 10/31/2011 Inactive Influenza Virus Vaccine 0.5 mL RxNorm: IM 05/02/2011 05/02/2011 Inactive albuterol sulfate HFA 90 mcg/Actuation Aerosol Inhaler RxNorm: 510565 1 Puff(s) INH PRN prn shortness of breath No Start Date Active Xarelto 20 mg tablet RxNorm: 0930272 1 Tablet(s) PO daily No Start Date Active pantoprazole 40 mg tablet,delayed release RxNorm: 554221 1 Tablet(s) PO daily No Start Date Active Singulair 10 mg tablet RxNorm: 046181 1 Tablet(s) PO daily No Start Date Active multivitamin chewable tablet RxNorm: 1 Tablet(s) PO daily No Start Date Active Fish Oil 300 mg-1,000 mg capsule RxNorm: 870844 1 Capsule(s) PO occasional No Start Date Active hyoscyamine 0.125 mg sublingual tablet RxNorm: 8670683 1 Tablet(s) SL Q6 No Start Date Active Cartia XT 120 mg capsule,extended release RxNorm: 579907 1 Capsule(s) PO daily and 1 QPM if HR above [address] Dr Aguilar manages No Start Date Active simvastatin 20 mg tablet RxNorm: 065798 1/2 Tablet(s) PO daily No Start Date 12/20/2015 Inactive Zantac 75 75 mg Tab RxNorm: 606128 2 Tablet(s) PO daily No Start Date 12/20/2015 Inactive Protonix 40 mg Tab RxNorm: 271451 1 Tablet(s) PO daily No Start Date 10/10/2011 Inactive Fish Oil 1,000 mg capsule RxNorm: 3 Capsule(s) PO daily No Start Date 12/20/2015 Inactive amiodarone 400 mg tablet RxNorm: 086764 1 Tablet(s) PO daily No Start Date 12/09/2017 Inactive digoxin 125 mcg tablet RxNorm: 4042529 1 Tablet(s) PO daily No Start Date 08/04/2013 Inactive Brilinta 90 mg Tab RxNorm: 4005303 1 Tablet(s) PO daily No Start Date 10/10/2011 Inactive Fish Oil 1,000 mg Cap RxNorm: 3 Capsule(s) PO daily No Start Date 12/21/2015 Inactive Flintstones Complete 18 mg iron chewable tablet RxNorm: 2 Tablet(s) PO daily No Start Date 12/20/2015 Inactive Niaspan Extended-Release 500 mg 24 hr Tab RxNorm: 4709458 1 Tablet(s) PO daily No Start Date 09/24/2011 Inactive samples tramadol 50 mg tablet RxNorm: 270219 1 Tablet(s) PO TID No Start Date 05/14/2017 Inactive aspirin 81 mg Cap, Delayed Release RxNorm: 159265 Capsule(s) PO daily No Start Date 05/01/2012 Inactive metformin 500 mg Tab RxNorm: 649245 1 Tablet(s) PO BID No Start Date 05/04/2011 Inactive Prilosec OTC 20 mg tablet,delayed release RxNorm: 683079 1 Tablet(s) PO daily No Start Date 10/31/2016 Inactive Zantac 150 mg Tab RxNorm: 097901 1 Tablet(s) PO BID No Start Date 10/10/2011 Inactive Synthroid 88 mcg Tab RxNorm: 180288 1 Tablet(s) PO daily No Start Date 06/05/2011 Inactive Plavix 75 mg Tab RxNorm: 367813 1 Tablet(s) PO daily No Start Date 10/31/2011 Inactive amiodarone 200 mg tablet RxNorm: 830577 1 Tablet(s) PO BID No Start Date 01/20/2018 Inactive aspirin 81 mg Cap, Delayed Release RxNorm: 741732 1 Capsule(s) PO daily No Start Date 10/01/2011 Inactive Lipitor 80 mg Tab RxNorm: 065732 1 Tablet(s) PO daily No Start Date 10/17/2011 Inactive Symbicort 160 mcg-4.5 mcg/Actuation HFA Aerosol Inhaler RxNorm: 0373083 1 INH No Start Date 01/05/2015 Inactive Medication Administered Medication Codes Instructions Start Date Status Kenalog 40 mg/mL suspension for injection RxNorm: 7614277 1.5Milliliter 10/30/2017 No longer Active ketorolac 60 mg/2 mL intramuscular solution RxNorm: 893206 2Milliliter 05/14/2017 No longer Active Kenalog 40 mg/mL suspension for injection RxNorm: 4587190 Milliliter 03/06/2017 No longer Active Kenalog 40 mg/mL suspension for injection RxNorm: 0160502 1.5Milliliter 09/04/2016 No longer Active Kenalog 40 mg/mL suspension for injection RxNorm: 4196650 1Milliliter 11/11/2015 No longer Active Kenalog 40 mg/mL suspension for injection RxNorm: 3093237 1Milliliter 10/25/2015 No longer Active Kenalog 40 mg/mL suspension for injection RxNorm: 6917207 Milliliter 08/17/2014 No longer Active Kenalog 40 mg/mL suspension for injection RxNorm: 0982017 Milliliter 04/13/2014 No longer Active Kenalog 40 mg/mL Susp for Injection RxNorm: 2552474 1Milliliter 10/07/2012 No longer Active Pneumovax 23 25 mcg/0.5 mL Injection RxNorm: 194572 Milliliter 03/26/2012 No longer Active Influenza Virus Vaccine 0.5 mL RxNorm: 03/26/2012 No longer Active Kenalog 40 mg/mL Susp for Injection RxNorm: 8912242 2Milliliter 07/31/2011 No longer Active Influenza Virus [...] Observation Code Item Item Code Result Date %Hba1C Qvg748 % HbA1c 64302- 6 8.9 % 05/09/2018 %Hba1C Blr532 Gluc Ave 209 mg/dL 05/09/2018 LIPID GRP CHOLESTEROL 184 mg/dL 01/14/2018 LIPID GRP Triglyceride 65 mg/dL 01/14/2018 LIPID GRP HDL CHOLESTEROL 53 mg/dL 01/14/2018 LIPID GRP Chol/HDL Ratio 3.47 ratio 01/14/2018 LIPID GRP NON-HDL Chol 131 mg/dL 01/14/2018 LIPID GRP LDL Cholesterol 118 mg/dL 01/14/2018 A1C HPLC 0896221 Hgb A1c 85084-5 6.5 % 01/14/2018 CBC 1584463 WBC 5.8 10e9/L 01/14/2018 CBC 2362755 RBC 4.67 10e12/L 01/14/2018 CBC 0341239 HEMOGLOBIN 12.4 g/dL 01/14/2018 CBC 9527127 HEMATOCRIT 40.6 % 01/14/2018 CBC 6166715 MCV 86.9 fL 01/14/2018 CBC 0596901 MCH 26.6 pg 01/14/2018 CBC 0200328 MCHC 30.5 g/dL 01/14/2018 CBC 9113574 PLATELET COUNT 419 10e9/L 01/14/2018 CBC 1569283 Mean Plt Volume 10.1 fL 01/14/2018 CBC 9428834 Neut Auto 60.7 % 01/14/2018 CBC 2726011 Lymph Auto 24.8 % 01/14/2018 CBC 9719501 [place] Auto 9.7 % 01/14/2018 CBC 7974418 RDW 25.0 % 01/14/2018 CBC 3486769 Eos Auto 3.4 % 01/14/2018 CBC 4069017 Baso Auto 1.4 % 01/14/2018 CBC 7137883 Neutrophil Abs 3.52 10e9/L 01/14/2018 CBC 5929325 Lymphocyte Abs 1.44 10e9/L 01/14/2018 CBC 2619266 Monocyte Abs 0.56 10e9/L 01/14/2018 CBC 0600714 Eosinophil Abs 0.20 10e9/L 01/14/2018 CBC 2694493 Basophil Abs 0.08 10e9/L 01/14/2018 CBC 7835101 RDW-SD 75.4 fL 01/14/2018 MEAN GLUC 4343677 Calc Mean Gluc 140 mg/dL 01/14/2018 Culture Urine [id number] URINE CULTURE SEE NOTES 01/03/2018 Culture Urine [id number] Continued Results 01/03/2018 Urine Culture Ucult Complete [...] 24.8 pg 11/20/2017 Cbc With Differential Ord2 [place]% 7.9 % 11/20/2017 Cbc With Differential Ord2 [...] 1.65 K/ul 11/20/2017 Cbc With Differential Ord2 [place] ABS# 0.7 K/ul 11/20/2017 Cbc With Differential Ord2 Eos ABS# 0.3 K/ul 11/20/2017 Cbc With Differential Ord2 Baso ABS# 0.1 K/ul 11/20/2017 Comp Metabolic Zhc386 NA 142 mEq/L 11/20/2017 Comp Metabolic Yla244 K 4.1 mEq/L 11/20/2017 Comp Metabolic Ffn873 CL 104 mEq/L 11/20/2017 Comp Metabolic Imh321 CO2 29.0 mEq/L 11/20/2017 Comp Metabolic Ohh484 ANION GAP 13 11/20/2017 Comp Metabolic Xpf793 GLUCOSE 178 mg/dL 11/20/2017 Comp Metabolic Fak542 Creat 0.6 mg/dL 11/20/2017 Comp Metabolic Nlh202 eGFR 112 ml/min/1.73m2 11/20/2017 Comp Metabolic Nqc079 BUN 19 mg/dL 11/20/2017 Comp Metabolic Xyf624 B/C Ratio 33.9 Ratio 11/20/2017 Comp Metabolic Hmr453 CALCIUM 9.3 mg/dL 11/20/2017 Comp Metabolic Gyi152 ALK PHOS 60 U/L 11/20/2017 Comp Metabolic Kag968 AST(SGOT) 13 U/L 11/20/2017 Comp Metabolic Ykw106 ALT(SGPT) 14 U/L 11/20/2017 Comp Metabolic Keu611 BILI T 0.4 mg/dL 11/20/2017 Comp Metabolic Ack385 ALBUMIN 4.1 g/dL 11/20/2017 Comp Metabolic Maw976 TPRO 6.0 g/dL 11/20/2017 Comp Metabolic Kck719 GLOB 1.9 g/dL 11/20/2017 Comp Metabolic Fuv909 A/G Ratio 2.2 Ratio 11/20/2017 Comp Metabolic Rzw076 Osmo 290 mOsmo 11/20/2017 Cbc With Differential [...] 24.8 pg 11/13/2017 Cbc With Differential Ord2 [place]% 7.8 % 11/13/2017 Cbc With Differential Ord2 [...] 1.57 K/ul 11/13/2017 Cbc With Differential Ord2 [place] ABS# 0.8 K/ul 11/13/2017 Cbc With Differential Ord2 Eos ABS# 0.3 K/ul 11/13/2017 Cbc With Differential Ord2 Baso ABS# 0.1 K/ul 11/13/2017 Comp Metabolic Ebj128 NA 142 mEq/L 11/13/2017 Comp Metabolic Fqf013 K 4.2 mEq/L 11/13/2017 Comp Metabolic Pjc347 CL 104 mEq/L 11/13/2017 Comp Metabolic Dsj634 CO2 26.0 mEq/L 11/13/2017 Comp Metabolic Ifs855 ANION GAP 16 11/13/2017 Comp Metabolic Pib780 GLUCOSE 115 mg/dL 11/13/2017 Comp Metabolic Ppd178 Creat 0.6 mg/dL 11/13/2017 Comp Metabolic Mbl290 eGFR 114 ml/min/1.73m2 11/13/2017 Comp Metabolic Gqz754 BUN 15 mg/dL 11/13/2017 Comp Metabolic Tof905 B/C Ratio 27.3 Ratio 11/13/2017 Comp Metabolic Ukd623 CALCIUM 9.2 mg/dL 11/13/2017 Comp Metabolic Cyu863 ALK PHOS 59 U/L 11/13/2017 Comp Metabolic Cdn730 AST(SGOT) 12 U/L 11/13/2017 Comp Metabolic Jhv103 ALT(SGPT) 13 U/L 11/13/2017 Comp Metabolic Bvv614 BILI T 0.5 mg/dL 11/13/2017 Comp Metabolic Jjv616 ALBUMIN 4.0 g/dL 11/13/2017 Comp Metabolic Drf402 TPRO 6.0 g/dL 11/13/2017 Comp Metabolic Tyg077 GLOB 2.0 g/dL 11/13/2017 Comp Metabolic Jtp143 A/G Ratio 2.0 Ratio 11/13/2017 Comp Metabolic Nnk348 Osmo 285 mOsmo 11/13/2017 Cbc With Differential [...] 26.9 pg 09/20/2017 Cbc With Differential Ord2 [place]% 9.9 % 09/20/2017 Cbc With Differential Ord2 [...] 1.55 K/ul 09/20/2017 Cbc With Differential Ord2 [place] ABS# 0.9 K/ul 09/20/2017 Cbc With Differential Ord2 Eos ABS# 0.4 K/ul 09/20/2017 Cbc With Differential Ord2 Baso ABS# 0.1 K/ul 09/20/2017 Comp Metabolic Dco597 NA 138 mEq/L 09/20/2017 Comp Metabolic Pzr703 K 4.0 mEq/L 09/20/2017 Comp Metabolic Znh169 CL 99 mEq/L 09/20/2017 Comp Metabolic Bfc367 CO2 26.0 mEq/L 09/20/2017 Comp Metabolic Xjc779 ANION GAP 17 09/20/2017 Comp Metabolic Bwd869 GLUCOSE 275 mg/dL 09/20/2017 Comp Metabolic Bed625 Creat 0.6 mg/dL 09/20/2017 Comp Metabolic Ouv478 eGFR 96 ml/min/1.73m2 09/20/2017 Comp Metabolic Waz272 BUN 17 mg/dL 09/20/2017 Comp Metabolic Rwt955 B/C Ratio 26.6 Ratio 09/20/2017 Comp Metabolic Pmb958 CALCIUM 9.5 mg/dL 09/20/2017 Comp Metabolic Prs540 ALK PHOS 57 U/L 09/20/2017 Comp Metabolic Kxa603 AST(SGOT) 13 U/L 09/20/2017 Comp Metabolic Qif526 ALT(SGPT) 13 U/L 09/20/2017 Comp Metabolic Kqn435 BILI T 0.5 mg/dL 09/20/2017 Comp Metabolic Xyw141 ALBUMIN 4.1 g/dL 09/20/2017 Comp Metabolic Tap456 TPRO 5.9 g/dL 09/20/2017 Comp Metabolic Bmz420 GLOB 1.8 g/dL 09/20/2017 Comp Metabolic Suy933 A/G Ratio 2.3 Ratio 09/20/2017 Comp Metabolic Sqx298 Osmo 287 mOsmo 09/20/2017 %Hba1C Yho472 % HbA1c 25745- 6 7.2 % 09/20/2017 %Hba1C Xye789 Gluc Ave 160 mg/dL 09/20/2017 MEAN GLUC 0784041 Calc Mean Gluc 169 mg/dL 02/28/2017 CBC 2899881 WBC 7.6 10e9/L 02/28/2017 CBC 0319468 RBC 4.91 10e12/L 02/28/2017 CBC 0171895 HEMOGLOBIN 13.2 g/dL 02/28/2017 CBC 6368434 HEMATOCRIT 42.7 % 02/28/2017 CBC 3186200 MCV 87.0 fL 02/28/2017 CBC 8200879 MCH 26.9 pg 02/28/2017 CBC 3088423 MCHC 30.9 g/dL 02/28/2017 CBC 6036935 PLATELET COUNT 341 10e9/L 02/28/2017 CBC 7783243 Mean Plt Volume 10.7 fL 02/28/2017 CBC 6716824 Neut Auto 62.1 % 02/28/2017 CBC 9228212 Lymph Auto 20.2 % 02/28/2017 CBC 9952486 [place] Auto 9.3 % 02/28/2017 CBC 2761404 RDW 15.8 % 02/28/2017 CBC 3176534 Eos Auto 7.1 % 02/28/2017 CBC 5282527 Baso Auto 1.3 % 02/28/2017 CBC 4725963 Neutrophil Abs 4.72 10e9/L 02/28/2017 CBC 7350749 Lymphocyte Abs 1.54 10e9/L 02/28/2017 CBC 9941701 Monocyte Abs 0.71 10e9/L 02/28/2017 CBC 4273943 Eosinophil Abs 0.54 10e9/L 02/28/2017 CBC 5244114 RDW-SD 49.0 fL 02/28/2017 CBC 2456909 Basophil Abs 0.10 10e9/L 02/28/2017 LIPID GRP CHOLESTEROL 189 mg/dL 02/28/2017 LIPID GRP Triglyceride 124 mg/dL 02/28/2017 LIPID GRP HDL CHOLESTEROL 43 mg/dL 02/28/2017 LIPID GRP 7014336 Chol/HDL Ratio 4.40 ratio 02/28/2017 LIPID GRP 3139284 NON-HDL Chol 146 mg/dL 02/28/2017 LIPID GRP LDL Cholesterol 121 mg/dL 02/28/2017 A1C HPLC 9278419 Hgb A1c 34522-9 7.5 % 02/28/2017 GFR CALC 9857522 GFR Non Afr Amr >60 mL/min 02/28/2017 GFR CALC 0207873 GFR Afr Amr >60 mL/min 02/28/2017 CHEM 14 20280111 AST 15 U/L 02/28/2017 CHEM 14 20280111 ALT 16 U/L 02/28/2017 CHEM 14 20280111 BUN 18 mg/dL 02/28/2017 CHEM 14 4725986 ALBUMIN 4.0 g/dL 02/28/2017 CHEM 14 20280111 CHLORIDE 104 mmol/L 02/28/2017 CHEM 14 20280111 Bili Total 0.6 mg/dL 02/28/2017 CHEM 14 5316691 ALK PHOS 53 U/L 02/28/2017 CHEM 14 4106661 SODIUM 143 mmol/L 02/28/2017 CHEM 14 7651824 CREATININE 0.66 mg/dL 02/28/2017 CHEM 14 1084677 CALCIUM 9.2 mg/dL 02/28/2017 CHEM 14 9153606 POTASSIUM 3.9 mmol/L 02/28/2017 CHEM 14 9130168 TOTAL PROTEIN 6.6 g/dL 02/28/2017 CHEM 14 2897219 GLUCOSE 146 mg/dL 02/28/2017 CHEM 14 8728507 Bicarbonate 30 mmol/L 02/28/2017 CHEM 14 7546969 AGAP 9 mmol/L 02/28/2017 CBC 6660736 WBC 6.8 10e9/L 08/21/2016 CBC 4631396 RBC 4.87 10e12/L 08/21/2016 CBC 4244914 HEMOGLOBIN 12.7 g/dL 08/21/2016 CBC 3769163 HEMATOCRIT 40.5 % 08/21/2016 CBC 9692093 MCV 83.2 fL 08/21/2016 CBC 2175372 MCH 26.1 pg 08/21/2016 CBC 2786321 MCHC 31.4 g/dL 08/21/2016 CBC 4647682 PLATELET COUNT 334 10e9/L 08/21/2016 CBC 7832173 Mean Plt Volume 10.5 fL 08/21/2016 CBC 8324933 Neut Auto 56.4 % 08/21/2016 CBC 6702394 Lymph Auto 23.5 % 08/21/2016 CBC 3996972 [place] Auto 9.7 % 08/21/2016 CBC 0578381 Eos Auto 9.5 % 08/21/2016 CBC 1268657 RDW 16.6 % 08/21/2016 CBC 4128507 Baso Auto 0.9 % 08/21/2016 CBC 1773346 Neutrophil Abs 3.84 10e9/L 08/21/2016 CBC 2692847 Lymphocyte Abs 1.60 10e9/L 08/21/2016 CBC 6655271 Monocyte Abs 0.66 10e9/L 08/21/2016 CBC 9551682 Eosinophil Abs 0.65 10e9/L 08/21/2016 CBC 9489564 Basophil Abs 0.06 10e9/L 08/21/2016 CBC 2833242 RDW-SD 49.7 fL 08/21/2016 FREE T4 4235847 T4 Free 1.39 ng/dL 08/21/2016 LIPID GRP CHOLESTEROL 211 mg/dL 08/21/2016 LIPID GRP Triglyceride 105 mg/dL 08/21/2016 LIPID GRP HDL CHOLESTEROL 45 mg/dL 08/21/2016 LIPID GRP Chol/HDL Ratio 4.69 ratio 08/21/2016 LIPID GRP NON-HDL Chol 166 mg/dL 08/21/2016 LIPID GRP LDL Cholesterol 145 mg/dL 08/21/2016 A1C HPLC 8660526 Hgb A1c 34272-3 7.4 % 08/21/2016 GFR CALC 2924557 GFR Non Afr Amr >60 mL/min 08/21/2016 GFR CALC 8566327 GFR Afr Amr >60 mL/min 08/21/2016 CHEM 14 8591736 AST 16 U/L 08/21/2016 CHEM 14 8108634 ALT 14 U/L 08/21/2016 CHEM 14 2679900 BUN 14 mg/dL 08/21/2016 CHEM 14 9371359 ALBUMIN 4.1 g/dL 08/21/2016 CHEM 14 9443674 CHLORIDE 105 mmol/L 08/21/2016 CHEM 14 8005849 Bili Total 0.5 mg/dL 08/21/2016 CHEM 14 6173541 ALK PHOS 53 U/L 08/21/2016 CHEM 14 9587503 SODIUM 141 mmol/L 08/21/2016 CHEM 14 2401970 CREATININE 0.66 mg/dL 08/21/2016 CHEM 14 5832219 CALCIUM 9.3 mg/dL 08/21/2016 CHEM 14 1382845 POTASSIUM 4.0 mmol/L 08/21/2016 CHEM 14 5656998 TOTAL PROTEIN 6.6 g/dL 08/21/2016 CHEM 14 1730431 GLUCOSE 145 mg/dL 08/21/2016 CHEM 14 7876108 Bicarbonate 29 mmol/L 08/21/2016 CHEM 14 3190299 AGAP 7 mmol/L 08/21/2016 TSH 3088917 TSH 1.485 uIU/mL 08/21/2016 MEAN GLUC 8879266 Calc Mean Gluc 166 mg/dL 08/21/2016 Cbc [...] 22.8 % 04/24/2016 Cbc With Differential Ord2 [place]% 10.9 % 04/24/2016 Cbc With Differential Ord2 [...] 1.49 K/ul 04/24/2016 Cbc With Differential Ord2 [place] ABS# 0.7 K/ul 04/24/2016 Cbc With Differential Ord2 Eos ABS# 0.7 K/ul 04/24/2016 Cbc With Differential Ord2 Baso ABS# 0.1 K/ul 04/24/2016 Comp Metabolic Rxt442 NA 138 mEq/L 04/24/2016 Comp Metabolic Ypk292 K 4.3 mEq/L 04/24/2016 Comp Metabolic Fyi610 CL 103 mEq/L 04/24/2016 Comp Metabolic Dun068 CO2 28.0 mEq/L 04/24/2016 Comp Metabolic Fvc520 ANION GAP 11 04/24/2016 Comp Metabolic Jcc819 GLUCOSE 138 mg/dL 04/24/2016 Comp Metabolic Qxi679 Creat 0.6 mg/dL 04/24/2016 Comp Metabolic Xyf209 eGFR 98 ml/min/1.73m2 04/24/2016 Comp Metabolic Ovn044 BUN 16 mg/dL 04/24/2016 Comp Metabolic Jjj248 B/C Ratio 25.4 Ratio 04/24/2016 Comp Metabolic Zdb821 CALCIUM 9.2 mg/dL 04/24/2016 Comp Metabolic Fof034 ALK PHOS 55 U/L 04/24/2016 Comp Metabolic Cbe163 AST(SGOT) 16 U/L 04/24/2016 Comp Metabolic Olm418 ALT(SGPT) 16 U/L 04/24/2016 Comp Metabolic Khq019 BILI T 0.6 mg/dL 04/24/2016 Comp Metabolic Lwy641 ALBUMIN 3.9 g/dL 04/24/2016 Comp Metabolic Gcn743 TPRO 6.1 g/dL 04/24/2016 Comp Metabolic Bbk021 GLOB 2.2 g/dL 04/24/2016 Comp Metabolic Iqj845 A/G Ratio 1.7 Ratio 04/24/2016 Comp Metabolic Qhl978 Osmo 279 mOsmo 04/24/2016 Lipid Ord30 CHOL 208 mg/dL 04/24/2016 Lipid Ord30 HDL 42.0 mg/dl 04/24/2016 Lipid Ord30 TRIG 98 mg/dL 04/24/2016 Lipid Ord30 LDL 146 mg/dL 04/24/2016 Lipid Ord30 C/HDL 5.0 Ratio 04/24/2016 %Hba1C Nxn009 % HbA1c 89875- 6 7.5 % 04/24/2016 %Hba1C Pge585 Gluc Ave 169 mg/dL 04/24/2016 Tsh Ord6 hTSH II 0.82 uIU/mL 04/24/2016 Free T4 Vqd403 FREE T4 1.17 ng/dL 04/24/2016 Digoxin Ord9 DIGOXIN 0.9 NG/ML 02/03/2016 Free T4 Bnf554 FREE T4 1.17 ng/dL 12/07/2015 %Hba1C Duo349 % HbA1c 77307- 6 7.5 % 12/07/2015 %Hba1C Jvt708 Gluc Ave 169 mg/dL 12/07/2015 Tsh Ord6 [...] 25.5 pg 12/07/2015 Cbc With Differential Ord2 [place]% 9.3 % 12/07/2015 Cbc With Differential Ord2 [...] 1.23 K/ul 12/07/2015 Cbc With Differential Ord2 [place] ABS# 0.7 K/ul 12/07/2015 Cbc With Differential Ord2 Eos ABS# 0.3 K/ul 12/07/2015 Cbc With Differential Ord2 Baso ABS# 0.1 K/ul 12/07/2015 Lipid Ord30 CHOL 196 mg/dL 12/07/2015 Lipid Ord30 HDL 41.0 mg/dl 12/07/2015 Lipid Ord30 TRIG 142 mg/dL 12/07/2015 Lipid Ord30 LDL 127 mg/dL 12/07/2015 Lipid Ord30 C/HDL 4.8 Ratio 12/07/2015 Comp Metabolic Nvt790 NA 139 mEq/L 12/07/2015 Comp Metabolic Jfw760 K 4.3 mEq/L 12/07/2015 Comp Metabolic Gei204 CL 101 mEq/L 12/07/2015 Comp Metabolic Ewl728 CO2 33.0 mEq/L 12/07/2015 Comp Metabolic Qox919 ANION GAP 9 12/07/2015 Comp Metabolic Zah792 GLUCOSE 159 mg/dL 12/07/2015 Comp Metabolic Ran444 Creat 0.6 mg/dL 12/07/2015 Comp Metabolic Jjl302 eGFR 108 ml/min/1.73m2 12/07/2015 Comp Metabolic Qnm995 BUN 13 mg/dL 12/07/2015 Comp Metabolic Qmk154 B/C Ratio 22.4 Ratio 12/07/2015 Comp Metabolic Vhc415 CALCIUM 9.0 mg/dL 12/07/2015 Comp Metabolic Col235 ALK PHOS 60 U/L 12/07/2015 Comp Metabolic Muj692 AST(SGOT) 16 U/L 12/07/2015 Comp Metabolic Rlt456 ALT(SGPT) 19 U/L 12/07/2015 Comp Metabolic Xol759 BILI T 0.6 mg/dL 12/07/2015 Comp Metabolic Gve534 ALBUMIN 4.0 g/dL 12/07/2015 Comp Metabolic Plv746 TPRO 6.0 g/dL 12/07/2015 Comp Metabolic Edt393 GLOB 2.0 g/dL 12/07/2015 Comp Metabolic Owy159 A/G Ratio 1.9 Ratio 12/07/2015 Comp Metabolic Ecj904 Osmo 281 mOsmo 12/07/2015 Cbc With Differential [...] hTSH II 1.10 uIU/mL 06/14/2015 Free T4 Jyk574 FREE T4 1.31 ng/dL 06/14/2015 %Hba1C Vmy664 % HbA1c 03179- 6 6.8 % 06/14/2015 %Hba1C Mbs643 Gluc Ave 148 mg/dL 06/14/2015 CHEM 14 5261905 AST 14 U/L 12/07/2014 CHEM 14 0929479 ALT 12 IU/L 12/07/2014 CHEM 14 4606843 BUN 12 MG/DL 12/07/2014 CHEM 14 5127904 ALBUMIN 3.9 GM/DL 12/07/2014 CHEM 14 4270513 CHLORIDE 103 MMOL/L 12/07/2014 CHEM 14 3834061 BILI TOT 0.6 MG/DL 12/07/2014 CHEM 14 3241453 ALK PHOS 49 U/L 12/07/2014 CHEM 14 8089276 SODIUM 140 MMOL/L 12/07/2014 CHEM 14 3808074 CREATININE 0.57 MG/DL 12/07/2014 CHEM 14 7237857 CALCIUM 9.5 MG/DL 12/07/2014 CHEM 14 8317795 POTASSIUM 4.0 MMOL/L 12/07/2014 CHEM 14 5898384 PROT TOT 6.5 GM/DL 12/07/2014 CHEM 14 3188674 GLUCOSE 110 MG/DL 12/07/2014 CHEM 14 6603022 BICARB 29 MMOL/L 12/07/2014 CHEM 14 6191387 ANION GAP 8 MEQ/L 12/07/2014 A1C HPLC 5270153 A1C HPLC 91101-4 6.4 % 12/07/2014 TSH 8219159 TSH 1.106 uIU/ML 12/07/2014 LIPID GRP HDL TEST 46 MG/DL 12/07/2014 LIPID GRP TRIG 119 MG/DL 12/07/2014 LIPID GRP TEST LDL 108 MG/DL 12/07/2014 LIPID GRP CHOL 178 MG/DL 12/07/2014 LIPID GRP RCHOL/HDL 3.87 RATIO 12/07/2014 LIPID GRP NON-HDL CH 132 MG/DL 12/07/2014 CBC 6800497 WBC 6.4 10e9/L 12/07/2014 CBC 9771364 RBC 4.51 10e12/L 12/07/2014 CBC 0084906 HGB 12.2 g/dL 12/07/2014 CBC 8779379 HCT DET 39.0 % 12/07/2014 CBC 3904766 MCV 86.5 fL 12/07/2014 CBC 9190447 MCH 27.1 pg 12/07/2014 CBC 1253444 MCHC 31.3 g/dL 12/07/2014 CBC 9116739 PLT 325 10e9/L 12/07/2014 CBC 4469850 MPV 10.4 fL 12/07/2014 CBC 9333301 TIM % 62.0 % 12/07/2014 CBC 2864847 LY % 21.4 % 12/07/2014 CBC 7066260 MON % 9.5 % 12/07/2014 CBC 5339807 EOS % 6.3 % 12/07/2014 CBC 3392530 BASO % 0.8 % 12/07/2014 CBC 2643904 RDW 15.8 % 12/07/2014 CBC 6280621 ABS TIM 3.97 10e9/L 12/07/2014 CBC 3183613 ABS LYMPH 1.37 10e9/L 12/07/2014 CBC 4413096 ABS MONO 0.61 10e9/L 12/07/2014 CBC 2402379 ABS EOS 0.40 10e9/L 12/07/2014 CBC 7193646 ABS BASO 0.05 10e9/L 12/07/2014 CBC 8891077 RDW-SD 48.8 fL 12/07/2014 FREE T4 8015059 FREE T4 1.37 NG/DL 12/07/2014 GFR CALC 3583400 GFR AA >60 ML/MIN 12/07/2014 GFR CALC 7709955 GFR NON-AA >60 ML/MIN 12/07/2014 CHEM 14 4834207 AST 17 U/L 11/04/2013 CHEM 14 6854306 ALT 16 IU/L 11/04/2013 CHEM 14 6599070 BUN 13 MG/DL 11/04/2013 CHEM 14 5680351 ALBUMIN 4.3 GM/DL 11/04/2013 CHEM 14 8281720 CHLORIDE 104 MMOL/L 11/04/2013 CHEM 14 8403686 BILI TOT 0.7 MG/DL 11/04/2013 CHEM 14 4923666 ALK PHOS 67 U/L 11/04/2013 CHEM 14 8476382 SODIUM 140 MMOL/L 11/04/2013 CHEM 14 9170096 CREATININE 0.64 MG/DL 11/04/2013 CHEM 14 4931328 CALCIUM 9.5 MG/DL 11/04/2013 CHEM 14 6597752 POTASSIUM 4.0 MMOL/L 11/04/2013 CHEM 14 5496046 PROT TOT 6.1 GM/DL 11/04/2013 CHEM 14 3389294 GLUCOSE 157 MG/DL 11/04/2013 CHEM 14 7947004 BICARB 27 MMOL/L 11/04/2013 CHEM 14 4261337 ANION GAP 9 MEQ/L 11/04/2013 FREE T4 1086642 FREE T4 1.44 NG/DL 11/04/2013 GFR CALC 0075081 GFR AA >60 ML/MIN 11/04/2013 GFR CALC 2882844 GFR NON-AA >60 ML/MIN 11/04/2013 TSH 3052626 TSH 0.841 uIU/ML 11/04/2013 A1C HPLC 3991088 A1C HPLC 15028-2 7.2 % 11/04/2013 LIPID GRP HDL TEST 45 MG/DL 11/04/2013 LIPID GRP TRIG 104 MG/DL 11/04/2013 LIPID GRP TEST LDL 82 MG/DL 11/04/2013 LIPID GRP CHOL 148 MG/DL 11/04/2013 LIPID GRP RCHOL/HDL 3.29 RATIO 11/04/2013 CBC 8113248 WBC 6.2 10e9/L 11/04/2013 CBC 7220426 RBC 4.38 10e12/L 11/04/2013 CBC 6965239 HGB 11.8 g/dL 11/04/2013 CBC 7872902 HCT DET 37.5 % 11/04/2013 CBC 6543781 MCV 85.6 fL 11/04/2013 CBC 0368674 MCH 26.9 pg 11/04/2013 CBC 5732567 MCHC 31.5 g/dL 11/04/2013 CBC 3425557 PLT 330 10e9/L 11/04/2013 CBC 4317049 MPV 10.6 fL 11/04/2013 CBC 5385935 TIM % 60.8 % 11/04/2013 CBC 1762563 LY % 22.1 % 11/04/2013 CBC 3455321 MON % 9.6 % 11/04/2013 CBC 1970155 EOS % 6.4 % 11/04/2013 CBC 3308046 BASO % 1.1 % 11/04/2013 CBC 7886073 RDW 15.6 % 11/04/2013 CBC 7734423 ABS TIM 3.77 10e9/L 11/04/2013 CBC 8146652 ABS LYMPH 1.37 10e9/L 11/04/2013 CBC 1965688 ABS MONO 0.60 10e9/L 11/04/2013 CBC 9546186 ABS EOS 0.40 10e9/L 11/04/2013 CBC 9069686 ABS BASO 0.07 10e9/L 11/04/2013 CBC 0066766 RDW-SD 48.0 fL 11/04/2013 DIGOXIN 9921191 DIGOXIN 0.5 NG/ML 11/04/2013 A1C HPLC 4899136 A1C HPLC 24900-9 7.6 % 07/28/2013 LIPID GRP HDL TEST 38 MG/DL 07/28/2013 LIPID GRP TRIG 137 MG/DL 07/28/2013 LIPID GRP TEST LDL 73 MG/DL 07/28/2013 LIPID GRP CHOL 138 MG/DL 07/28/2013 LIPID GRP RCHOL/HDL 3.63 RATIO 07/28/2013 LIVER PNL 0019067 BILI DIR 0.2 MG/DL 07/28/2013 DIGOXIN 7649272 DIGOXIN 0.4 NG/ML 07/28/2013 CBC 5756762 WBC 7.2 10e9/L 07/28/2013 CBC 5341045 RBC 4.65 10e12/L 07/28/2013 CBC 5970933 HGB 12.6 g/dL 07/28/2013 CBC 2057770 HCT DET 39.6 % 07/28/2013 CBC 0122378 MCV 85.2 fL 07/28/2013 CBC 9834262 MCH 27.1 pg 07/28/2013 CBC 1793727 MCHC 31.8 g/dL 07/28/2013 CBC 7736787 PLT 344 10e9/L 07/28/2013 CBC 1870063 MPV 10.7 fL 07/28/2013 CBC 7611983 TIM % 61.4 % 07/28/2013 CBC 8410435 LY % 22.4 % 07/28/2013 CBC 6414709 MON % 8.4 % 07/28/2013 CBC 4362559 EOS % 6.8 % 07/28/2013 CBC 0823613 BASO % 1.0 % 07/28/2013 CBC 4032342 RDW 15.5 % 07/28/2013 CBC 8261240 ABS TIM 4.42 10e9/L 07/28/2013 CBC 3829414 ABS LYMPH 1.61 10e9/L 07/28/2013 CBC 6180070 ABS MONO 0.60 10e9/L 07/28/2013 CBC 0047618 ABS EOS 0.49 10e9/L 07/28/2013 CBC 4961437 ABS BASO 0.07 10e9/L 07/28/2013 CBC 5285971 RDW-SD 47.2 fL 07/28/2013 GFR CALC 9996649 GFR AA >60 ML/MIN 07/28/2013 GFR CALC 9713258 GFR NON-AA >60 ML/MIN 07/28/2013 CHEM 14 20280111 AST 20 U/L 07/28/2013 CHEM 14 20280111 ALT 19 IU/L 07/28/2013 CHEM 14 20280111 BUN 13 MG/DL 07/28/2013 CHEM 14 2974350 ALBUMIN 4.1 GM/DL 07/28/2013 CHEM 14 5968952 CHLORIDE 102 MMOL/L 07/28/2013 CHEM 14 20280111 BILI TOT 0.7 MG/DL 07/28/2013 CHEM 14 2127761 ALK PHOS 62 U/L 07/28/2013 CHEM 14 7042245 SODIUM 139 MMOL/L 07/28/2013 CHEM 14 0896040 CREATININE 0.66 MG/DL 07/28/2013 CHEM 14 3613375 CALCIUM 9.3 MG/DL 07/28/2013 CHEM 14 8140830 POTASSIUM 4.4 MMOL/L 07/28/2013 CHEM 14 1709737 PROT TOT 6.2 GM/DL 07/28/2013 CHEM 14 1476422 GLUCOSE 160 MG/DL 07/28/2013 CHEM 14 6461218 BICARB 29 MMOL/L 07/28/2013 CHEM 14 8849438 ANION GAP 8 MEQ/L 07/28/2013 DIGOXIN 8867817 DIGOXIN 0.6 NG/ML 05/12/2013 GFR CALC 3744749 GFR AA >60 ML/MIN 04/29/2013 GFR CALC 6300733 GFR NON-AA >60 ML/MIN 04/29/2013 A1C 0400009 A1C HPLC 79484- 6 7.5 % 04/29/2013 TSH 4961262 TSH 1.161 uIU/ML 04/29/2013 CHEM 14 0053221 AST 14 U/L 04/29/2013 CHEM 14 0246474 ALT 14 IU/L 04/29/2013 CHEM 14 7196397 BUN 13 MG/DL 04/29/2013 CHEM 14 1493288 ALBUMIN 4.1 GM/DL 04/29/2013 CHEM 14 6781936 CHLORIDE 102 MMOL/L 04/29/2013 CHEM 14 7577169 BILI TOT 0.7 MG/DL 04/29/2013 CHEM 14 0272079 ALK PHOS 75 U/L 04/29/2013 CHEM 14 2078056 SODIUM 139 MMOL/L 04/29/2013 CHEM 14 7353833 CREATININE 0.62 MG/DL 04/29/2013 CHEM 14 9696041 CALCIUM 9.3 MG/DL 04/29/2013 CHEM 14 6399501 POTASSIUM 4.0 MMOL/L 04/29/2013 CHEM 14 9240732 PROT TOT 6.5 GM/DL 04/29/2013 CHEM 14 3084237 GLUCOSE 152 MG/DL 04/29/2013 CHEM 14 4714506 BICARB 31 MMOL/L 04/29/2013 CHEM 14 6052110 ANION GAP 6 MEQ/L 04/29/2013 CBC 0358137 WBC 7.4 10e9/L 04/29/2013 CBC 7333471 RBC 4.70 10e12/L 04/29/2013 CBC 0328884 HGB 12.8 g/dL 04/29/2013 CBC 7915266 HCT DET 40.1 % 04/29/2013 CBC 5904147 MCV 85.3 fL 04/29/2013 CBC 4017326 MCH 27.2 pg 04/29/2013 CBC 0617795 MCHC 31.9 g/dL 04/29/2013 CBC 4799341 PLT 312 10e9/L 04/29/2013 CBC 5726423 MPV 10.4 fL 04/29/2013 CBC 8451828 TIM % 64.9 % 04/29/2013 CBC 3370649 LY % 20.0 % 04/29/2013 CBC 5393702 MON % 8.6 % 04/29/2013 CBC 0667399 EOS % 5.3 % 04/29/2013 CBC 8838531 BASO % 1.2 % 04/29/2013 CBC 8929261 RDW 15.4 % 04/29/2013 CBC 8130401 ABS TIM 4.80 10e9/L 04/29/2013 CBC 5359545 ABS LYMPH 1.48 10e9/L 04/29/2013 CBC 4538096 ABS MONO 0.64 10e9/L 04/29/2013 CBC 9320529 ABS EOS 0.39 10e9/L 04/29/2013 CBC 5706371 ABS BASO 0.09 10e9/L 04/29/2013 CBC 5614535 RDW-SD 47.3 fL 04/29/2013 LIPID GRP HDL TEST 43 MG/DL 04/29/2013 LIPID GRP TRIG 111 MG/DL 04/29/2013 LIPID GRP TEST LDL 65 MG/DL 04/29/2013 LIPID GRP CHOL 130 MG/DL 04/29/2013 LIPID GRP RCHOL/HDL 3.02 RATIO 04/29/2013 TSH 7151714 TSH 1.406 uIU/ML 12/28/2012 A1C 6311874 A1C HPLC 42884- 6 7.2 % 12/28/2012 LIPID GRP HDL TEST 54 MG/DL 12/27/2012 LIPID GRP TRIG 94 MG/DL 12/27/2012 LIPID GRP TEST LDL 42 MG/DL 12/27/2012 LIPID GRP CHOL 115 MG/DL 12/27/2012 LIPID GRP RCHOL/HDL 2.13 RATIO 12/27/2012 GFR CALC 8691854 GFR AA >60 ML/MIN 12/27/2012 GFR CALC 2009775 GFR NON-AA >60 ML/MIN 12/27/2012 CHEM 14 4794556 AST 14 U/L 12/27/2012 CHEM 14 5035470 ALT 13 IU/L 12/27/2012 CHEM 14 4723528 BUN 13 MG/DL 12/27/2012 CHEM 14 3177351 ALBUMIN 4.5 GM/DL 12/27/2012 CHEM 14 7240913 CHLORIDE 105 MMOL/L 12/27/2012 CHEM 14 1963645 BILI TOT 0.8 MG/DL 12/27/2012 CHEM 14 4698413 ALK PHOS 69 U/L 12/27/2012 CHEM 14 3519735 SODIUM 142 MMOL/L 12/27/2012 CHEM 14 4306651 CREATININE 0.73 MG/DL 12/27/2012 CHEM 14 6661586 CALCIUM 9.7 MG/DL 12/27/2012 CHEM 14 1956637 POTASSIUM 4.1 MMOL/L 12/27/2012 CHEM 14 4956704 PROT TOT 6.8 GM/DL 12/27/2012 CHEM 14 9006531 GLUCOSE 133 MG/DL 12/27/2012 CHEM 14 6375380 BICARB 30 MMOL/L 12/27/2012 CHEM 14 1003344 ANION GAP 7 MEQ/L 12/27/2012 CBC 0554452 WBC 6.8 10e9/L 12/27/2012 CBC 2916247 RBC 4.72 10e12/L 12/27/2012 CBC 3086574 HGB 12.5 g/dL 12/27/2012 CBC 6942508 HCT DET 39.6 % 12/27/2012 CBC 1363412 MCV 83.9 fL 12/27/2012 CBC 9730488 MCH 26.5 pg 12/27/2012 CBC 2310513 MCHC 31.6 g/dL 12/27/2012 CBC 9901246 PLT 336 10e9/L 12/27/2012 CBC 5452384 MPV 10.4 fL 12/27/2012 CBC 7662977 TIM % 60.7 % 12/27/2012 CBC 7918606 LY % 24.6 % 12/27/2012 CBC 8199063 MON % 8.4 % 12/27/2012 CBC 5361197 EOS % 5.3 % 12/27/2012 CBC 9069338 BASO % 1.0 % 12/27/2012 CBC 5947238 RDW 16.6 % 12/27/2012 CBC 3850300 ABS TIM 4.13 10e9/L 12/27/2012 CBC 1034633 ABS LYMPH 1.67 10e9/L 12/27/2012 CBC 0022197 ABS MONO 0.57 10e9/L 12/27/2012 CBC 3422537 ABS EOS 0.36 10e9/L 12/27/2012 CBC 8033187 ABS BASO 0.07 10e9/L 12/27/2012 CBC 1640799 RDW-SD 50.1 fL 12/27/2012 GFR CALC 3480123 GFR AA >60 ML/MIN 08/27/2012 GFR CALC 0412643 GFR NON-AA >60 ML/MIN 08/27/2012 CHEM 14 4586966 AST 15 U/L 08/27/2012 CHEM 14 0384328 ALT 17 IU/L 08/27/2012 CHEM 14 9336027 BUN 14 MG/DL 08/27/2012 CHEM 14 1851448 ALBUMIN 4.2 GM/DL 08/27/2012 CHEM 14 8824342 CHLORIDE 103 MMOL/L 08/27/2012 CHEM 14 9574047 BILI TOT 0.6 MG/DL 08/27/2012 CHEM 14 5242113 ALK PHOS 86 U/L 08/27/2012 CHEM 14 8508563 SODIUM 141 MMOL/L 08/27/2012 CHEM 14 4500142 CREATININE 0.64 MG/DL 08/27/2012 CHEM 14 2478482 CALCIUM 9.5 MG/DL 08/27/2012 CHEM 14 8143036 POTASSIUM 4.1 MMOL/L 08/27/2012 CHEM 14 0671762 PROT TOT 6.1 GM/DL 08/27/2012 CHEM 14 4938518 GLUCOSE 151 MG/DL 08/27/2012 CHEM 14 7332465 BICARB 30 MMOL/L 08/27/2012 CHEM 14 5368523 ANION GAP 8 MEQ/L 08/27/2012 FREE T4 3611368 FREE T4 1.36 NG/DL 08/27/2012 CBC 6569413 WBC 7.8 10e9/L 08/27/2012 CBC 0894435 RBC 4.54 10e12/L 08/27/2012 CBC 6697618 HGB 12.0 g/dL 08/27/2012 CBC 8245686 HCT DET 37.9 % 08/27/2012 CBC 1213508 MCV 83.5 fL 08/27/2012 CBC 6861664 MCH 26.4 pg 08/27/2012 CBC 4372768 MCHC 31.7 g/dL 08/27/2012 CBC 2582730 PLT 370 10e9/L 08/27/2012 CBC 5713475 MPV 10.7 fL 08/27/2012 CBC 0270203 TIM % 65.7 % 08/27/2012 CBC 5359346 LY % 19.5 % 08/27/2012 CBC 7117780 MON % 9.0 % 08/27/2012 CBC 6525840 EOS % 5.0 % 08/27/2012 CBC 3453798 BASO % 0.8 % 08/27/2012 CBC 0653406 RDW 15.4 % 08/27/2012 CBC 5357191 ABS TIM 5.12 10e9/L 08/27/2012 CBC 2720360 ABS LYMPH 1.52 10e9/L 08/27/2012 CBC 5751905 ABS MONO 0.70 10e9/L 08/27/2012 CBC 2199939 ABS EOS 0.39 10e9/L 08/27/2012 CBC 2813622 ABS BASO 0.06 10e9/L 08/27/2012 CBC 4097142 RDW-SD 46.3 fL 08/27/2012 A1C HPLC 9807248 A1C HPLC 96499-8 7.3 % 08/27/2012 LIPID GRP HDL TEST 41 MG/DL 08/27/2012 LIPID GRP TRIG 120 MG/DL 08/27/2012 LIPID GRP TEST LDL 67 MG/DL 08/27/2012 LIPID GRP CHOL 132 MG/DL 08/27/2012 LIPID GRP RCHOL/HDL 3.22 RATIO 08/27/2012 TSH 1161544 TSH 0.933 uIU/ML 08/27/2012 DIGOXIN 6561345 DIGOXIN 1.4 NG/ML 07/15/2012 CBC 0642052 WBC 6.3 10e9/L 07/15/2012 CBC 9638508 RBC 4.44 10e12/L 07/15/2012 CBC 6534179 HGB 11.8 g/dL 07/15/2012 CBC 2124395 HCT DET 36.9 % 07/15/2012 CBC 2103827 MCV 83.1 fL 07/15/2012 CBC 1958243 MCH 26.6 pg 07/15/2012 CBC 3297212 MCHC 32.0 g/dL 07/15/2012 CBC 2344843 PLT 316 10e9/L 07/15/2012 CBC 9803818 MPV 10.3 fL 07/15/2012 CBC 1589730 TIM % 64.4 % 07/15/2012 CBC 5361977 LY % 19.6 % 07/15/2012 CBC 4162205 MON % 9.1 % 07/15/2012 CBC 6952064 EOS % 6.1 % 07/15/2012 CBC 3912158 BASO % 0.8 % 07/15/2012 CBC 6881519 RDW 15.3 % 07/15/2012 CBC 5326852 ABS TIM 4.06 10e9/L 07/15/2012 CBC 6892545 ABS LYMPH 1.23 10e9/L 07/15/2012 CBC 2621046 ABS MONO 0.57 10e9/L 07/15/2012 CBC 6126510 ABS EOS 0.38 10e9/L 07/15/2012 CBC 1790881 ABS BASO 0.05 10e9/L 07/15/2012 CBC 7951097 RDW-SD 46.2 fL 07/15/2012 DIGOXIN 8364287 DIGOXIN 1.4 NG/ML 07/04/2012 BMP 6055030 GLUCOSE 137 MG/DL 07/04/2012 BMP 0363398 CREATININE 0.86 MG/DL 07/04/2012 BMP 6265300 BUN 14 MG/DL 07/04/2012 BMP 2753382 SODIUM 140 MMOL/L 07/04/2012 BMP 4064059 POTASSIUM 4.5 MMOL/L 07/04/2012 BMP 2348993 CHLORIDE 103 MMOL/L 07/04/2012 BMP 4179634 BICARB 28 MMOL/L 07/04/2012 BMP 6281461 ANION GAP 9 MEQ/L 07/04/2012 BMP 9112996 CALCIUM 9.7 MG/DL 07/04/2012 CBC 7818110 WBC 6.9 10e9/L 07/04/2012 CBC 3506951 RBC 4.56 10e12/L 07/04/2012 CBC 9338916 HGB 12.2 g/dL 07/04/2012 CBC 2491126 HCT DET 38.1 % 07/04/2012 CBC 1173407 MCV 83.6 fL 07/04/2012 CBC 2036446 MCH 26.8 pg 07/04/2012 CBC 6494254 MCHC 32.0 g/dL 07/04/2012 CBC 1157594 PLT 382 10e9/L 07/04/2012 CBC 4169759 MPV 10.6 fL 07/04/2012 CBC 0541004 TIM % 58.7 % 07/04/2012 CBC 1705118 LY % 23.7 % 07/04/2012 CBC 0171533 MON % 10.2 % 07/04/2012 CBC 7384702 EOS % 6.4 % 07/04/2012 CBC 3268801 BASO % 1.0 % 07/04/2012 CBC 5226450 RDW 15.8 % 07/04/2012 CBC 1697126 ABS TIM 4.05 10e9/L 07/04/2012 CBC 1376470 ABS LYMPH 1.64 10e9/L 07/04/2012 CBC 2000866 ABS MONO 0.70 10e9/L 07/04/2012 CBC 3499853 ABS EOS 0.44 10e9/L 07/04/2012 CBC 2649672 ABS BASO 0.07 10e9/L 07/04/2012 CBC 0394239 RDW-SD 47.5 fL 07/04/2012 GFR CALC 8175372 GFR AA >60 ML/MIN 07/04/2012 GFR CALC 2353001 GFR NON-AA >60 ML/MIN 07/04/2012 A1C HPLC 3957586 A1C HPLC 31336-6 7.1 % 03/27/2012 GFR CALC 2011893 GFR AA >60 ML/MIN 03/26/2012 GFR CALC 4608199 GFR NON-AA >60 ML/MIN 03/26/2012 LIPID GRP HDL TEST 40 MG/DL 03/26/2012 LIPID GRP TRIG 93 MG/DL 03/26/2012 LIPID GRP TEST LDL 62 MG/DL 03/26/2012 LIPID GRP CHOL 121 MG/DL 03/26/2012 LIPID GRP RCHOL/HDL 3.03 RATIO 03/26/2012 TSH 9569489 TSH 0.842 uIU/ML 03/26/2012 FREE T4 9178241 FREE T4 1.30 NG/DL 03/26/2012 CBC 4969011 WBC 5.3 10e9/L 03/26/2012 CBC 9472236 RBC 4.70 10e12/L 03/26/2012 CBC 3743581 HGB 12.1 g/dL 03/26/2012 CBC 1365790 HCT DET 38.1 % 03/26/2012 CBC 1815653 MCV 81.1 fL 03/26/2012 CBC 4711686 MCH 25.7 pg 03/26/2012 CBC 3148300 MCHC 31.8 g/dL 03/26/2012 CBC 8983051 PLT 315 10e9/L 03/26/2012 CBC 9649614 MPV 10.9 fL 03/26/2012 CBC 5465135 TIM % 54.8 % 03/26/2012 CBC 7234934 LY % 25.8 % 03/26/2012 CBC 8064380 MON % 11.6 % 03/26/2012 CBC 5571120 EOS % 7.0 % 03/26/2012 CBC 1641642 BASO % 0.8 % 03/26/2012 CBC 2998556 RDW 16.7 % 03/26/2012 CBC 3465179 ABS TIM 2.90 10e9/L 03/26/2012 CBC 3336703 ABS LYMPH 1.37 10e9/L 03/26/2012 CBC 3628241 ABS MONO 0.61 10e9/L 03/26/2012 CBC 0889315 ABS EOS 0.37 10e9/L 03/26/2012 CBC 0675786 ABS BASO 0.04 10e9/L 03/26/2012 CBC 2592249 RDW-SD 48.8 fL 03/26/2012 CHEM 14 0577787 AST 18 U/L 03/26/2012 CHEM 14 5997414 ALT 17 IU/L 03/26/2012 CHEM 14 8024886 BUN 16 MG/DL 03/26/2012 CHEM 14 9377191 ALBUMIN 4.3 GM/DL 03/26/2012 CHEM 14 7598125 CHLORIDE 103 MMOL/L 03/26/2012 CHEM 14 9148678 BILI TOT 0.9 MG/DL 03/26/2012 CHEM 14 6101529 ALK PHOS 79 U/L 03/26/2012 CHEM 14 0957831 SODIUM 140 MMOL/L 03/26/2012 CHEM 14 9763632 CREATININE 0.70 MG/DL 03/26/2012 CHEM 14 7598603 CALCIUM 9.6 MG/DL 03/26/2012 CHEM 14 3865450 POTASSIUM 4.1 MMOL/L 03/26/2012 CHEM 14 3604760 PROT TOT 6.3 GM/DL 03/26/2012 CHEM 14 9439099 GLUCOSE 142 MG/DL 03/26/2012 CHEM 14 0157664 BICARB 29 MMOL/L 03/26/2012 CHEM 14 9920819 ANION GAP 8 MEQ/L 03/26/2012 LIPID GRP HDL TEST 42 MG/DL 01/08/2012 LIPID GRP TRIG 105 MG/DL 01/08/2012 LIPID GRP TEST LDL 51 MG/DL 01/08/2012 LIPID GRP CHOL 114 MG/DL 01/08/2012 LIPID GRP RCHOL/HDL 2.71 RATIO 01/08/2012 CHEM 14 9904183 AST 24 U/L 01/08/2012 CHEM 14 2154156 ALT 28 IU/L 01/08/2012 CHEM 14 2413589 BUN 15 MG/DL 01/08/2012 CHEM 14 3780018 ALBUMIN 4.3 GM/DL 01/08/2012 CHEM 14 2818063 CHLORIDE 104 MMOL/L 01/08/2012 CHEM 14 0782731 BILI TOT 0.6 MG/DL 01/08/2012 CHEM 14 0469600 ALK PHOS 83 U/L 01/08/2012 CHEM 14 9246975 SODIUM 141 MMOL/L 01/08/2012 CHEM 14 8526067 CREATININE 0.64 MG/DL 01/08/2012 CHEM 14 8147776 CALCIUM 9.4 MG/DL 01/08/2012 CHEM 14 8177929 POTASSIUM 4.0 MMOL/L 01/08/2012 CHEM 14 3720430 PROT TOT 6.7 GM/DL 01/08/2012 CHEM 14 5434239 GLUCOSE 145 MG/DL 01/08/2012 CHEM 14 9842356 BICARB 28 MMOL/L 01/08/2012 CHEM 14 3567383 ANION GAP 9 MEQ/L 01/08/2012 CBC 4534565 WBC 5.8 10e9/L 01/08/2012 CBC 7485917 RBC 4.36 10e12/L 01/08/2012 CBC 0446236 HGB 11.6 g/dL 01/08/2012 CBC 1263819 HCT DET 37.4 % 01/08/2012 CBC 9884966 MCV 85.8 fL 01/08/2012 CBC 7468025 MCH 26.6 pg 01/08/2012 CBC 0836376 MCHC 31.0 g/dL 01/08/2012 CBC 1757048 PLT 319 10e9/L 01/08/2012 CBC 3134764 MPV 10.5 fL 01/08/2012 CBC 8057766 TIM % 62.2 % 01/08/2012 CBC 4491935 LY % 20.7 % 01/08/2012 CBC 5483835 MON % 9.3 % 01/08/2012 CBC 3180543 EOS % 6.4 % 01/08/2012 CBC 4917415 BASO % 1.4 % 01/08/2012 CBC 9042725 RDW 14.9 % 01/08/2012 CBC 2062840 ABS TIM 3.61 10e9/L 01/08/2012 CBC 7905340 ABS LYMPH 1.20 10e9/L 01/08/2012 CBC 6793844 ABS MONO 0.54 10e9/L 01/08/2012 CBC 4843628 ABS EOS 0.37 10e9/L 01/08/2012 CBC 2535908 ABS BASO 0.08 10e9/L 01/08/2012 CBC 1451912 RDW-SD 44.9 fL 01/08/2012 GFR CALC 6696533 GFR AA >60 ML/MIN 01/08/2012 GFR CALC 4873286 GFR NON-AA >60 ML/MIN 01/08/2012 A1C HPLC 1273494 A1C HPLC 45966-7 7.2 % 01/08/2012 Review of Systems System [...] clear 12/11/2013 None Full Exam - General 1995 Ears/Nose/Throat [...] accomodation 07/15/2012 None Full Exam - General 1994 Ears/Nose/Throat [...] Codes Date URINALYSIS NONAUTO W/O SCOPE CPT-4: 62250 12/31/2017 OCCULT BLOOD FECES CPT- 4: 01489 11/28/2017 TRIAMCINOLONE ACET INJ NOS CPT-4: J3301 10/30/2017 REMOVAL OF IMPACTED WAX CPT-4: G0268 05/29/2017 THER/PROPH/DIAG INJ SC/IM CPT-4: 11135 05/14/2017 KETOROLAC TROMETHAMINE INJ CPT-4: J1885 05/14/2017 ADMIN INFLUENZA VIRUS VAC CPT-4: G0008 04/30/2017 FLU VACC PRSV FREE INC ANTIG CPT-4: 26708 04/30/2017 THER/PROPH/DIAG INJ SC/IM CPT-4: 72819 03/06/2017 TRIAMCINOLONE ACET INJ NOS CPT-4: J3301 03/06/2017 THER/PROPH/DIAG INJ SC/IM CPT-4: 04420 09/04/2016 TRIAMCINOLONE ACET INJ NOS CPT-4: J3301 09/04/2016 THER/PROPH/DIAG INJ SC/IM CPT-4: 82801 11/11/2015 TRIAMCINOLONE ACET INJ NOS CPT-4: J3301 11/11/2015 TRIAMCINOLONE ACET INJ NOS CPT-4: J3301 10/25/2015 THER/PROPH/DIAG INJ SC/IM CPT-4: 47361 10/25/2015 THER/PROPH/DIAG INJ SC/IM CPT-4: 31228 08/17/2014 TRIAMCINOLONE ACET INJ NOS CPT-4: J3301 08/17/2014 TRIAMCINOLONE ACET INJ NOS CPT-4: J3301 04/13/2014 THER/PROPH/DIAG INJ SC/IM CPT-4: 59522 04/13/2014 ROUTINE VENIPUNCTURE CPT- 4: 03605 11/04/2013 ROUTINE VENIPUNCTURE CPT- 4: 56226 05/12/2013 ADMIN INFLUENZA VIRUS VAC CPT-4: G0008 05/12/2013 FLULAVAL VACC, 3 YRS & >, IM CPT-4: Q2036 05/12/2013 TRIAMCINOLONE ACET INJ NOS CPT-4: J3301 10/07/2012 THER/PROPH/DIAG INJ SC/IM CPT-4: 36582 10/07/2012 ROUTINE VENIPUNCTURE CPT- 4: 20187 08/27/2012 ROUTINE VENIPUNCTURE CPT- 4: 25615 07/15/2012 ROUTINE VENIPUNCTURE CPT- 4: 82825 03/26/2012 ADMIN INFLUENZA VIRUS VAC CPT-4: G0008 03/26/2012 FLULAVAL VACC, 3 YRS & >, IM CPT-4: Q2036 03/26/2012 Pneumococcal Polysaccharide Vaccine, 23-Valent, Ad CPT-4: 80956 03/26/2012 ROUTINE VENIPUNCTURE CPT- 4: 53976 01/08/2012 ROUTINE VENIPUNCTURE CPT- 4: 23507 11/06/2011 ROUTINE VENIPUNCTURE CPT- 4: 93283 10/25/2011 ROUTINE VENIPUNCTURE CPT- 4: 30222 10/16/2011 ROUTINE VENIPUNCTURE CPT- 4: 45926 09/25/2011 INJ TRIGGER POINT 1/2 MUSCL CPT-4: 73395 07/31/2011 TRIAMCINOLONE ACET INJ NOS CPT-4: J3301 07/31/2011 PRESCRIP TRANSMIT VIA ERX SY CPT-4: G8553 05/22/2011 ADMIN INFLUENZA VIRUS VAC CPT-4: G0008 05/02/2011 FLULAVAL VACC, 3 YRS & >, IM CPT-4: Q2036 05/02/2011 ROUTINE VENIPUNCTURE CPT- 4: 34851 05/02/2011 Vital Signs Date Vital 01/21/2018 Blood Pressure 1: 132/78 Code: 8480-6 BMI: 28.7 Code: 21900-6 Heart Rate 1: 112 bpm Height: 5'1" SpO2: 98% Weight: 152 lbs 12/04/2017 Blood Pressure 1: 140/74 Code: 8480-6 BMI: 27.6 Code: 68139-0 Heart Rate 1: 76 bpm Height: 5'1" SpO2: 97% Weight: 146 lbs 11/13/2017 Blood Pressure 1: 166/78 Code: 8480-6 BMI: 27.4 Code: 11963-9 Heart Rate 1: 78 bpm Height: 5'1" SpO2: 98% Weight: 145 lbs 10/30/2017 Blood Pressure 1: 148/72 Code: 8480-6 BMI: 27.8 Code: 99186-7 Heart Rate 1: 92 bpm Height: 5'1" SpO2: 96% Weight: 147 lbs 09/20/2017 Blood Pressure 1: 146/68 Code: 8480-6 BMI: 28.2 Code: 37509-5 Heart Rate 1: 66 bpm Height: 5'1" SpO2: 99% Weight: 149 lbs 05/29/2017 Blood Pressure 1: 156/82 Code: 8480-6 BMI: 28.7 Code: 94821-9 Heart Rate 1: 71 bpm Height: 5'1" SpO2: 96% Weight: 152 lbs 05/14/2017 Blood Pressure 1: 150/88 Code: 8480-6 BMI: 28.5 Code: 37470-3 Heart Rate 1: 71 bpm Height: 5'1" SpO2: 98% Weight: 151 lbs 03/06/2017 Blood Pressure 1: 148/66 Code: 8480-6 BMI: 28.5 Code: 80301-2 Heart Rate 1: 78 bpm Height: 5'1" SpO2: 98% Weight: 151 lbs 11/01/2016 Blood Pressure 1: 150/84 Code: 8480-6 BMI: 29.1 Code: 42363-8 Heart Rate 1: 71 bpm Height: 5'1" SpO2: 97% Weight: 154 lbs 10/18/2016 Blood Pressure 1: 156/98 Code: 8480-6 Heart Rate 1: 68 bpm Height: 5'1" SpO2: 98% Weight: 10/12/2016 Blood Pressure 1: 142/76 Code: 8480-6 BMI: 30.0 Code: 42761-0 Heart Rate 1: 76 bpm Height: 5'1" SpO2: 95% Weight: 159 lbs 09/04/2016 Blood Pressure 1: 120/70 Code: 8480-6 Blood Pressure 1: 148/84 Code: 8480-6 BMI: 30.0 Code: 78368-0 Heart Rate 1: 72 bpm Height: 5'1" SpO2: 94% Weight: 159 lbs 05/30/2016 Blood Pressure 1: 152/84 Code: 8480-6 BMI: 29.9 Code: 34517-9 Heart Rate 1: 76 bpm Height: 5'1" SpO2: 97% Weight: 158 lbs 8 oz 05/01/2016 Blood Pressure 1: 146/60 Code: 8480-6 BMI: 29.9 Code: 73213-9 Heart Rate 1: 72 bpm Height: 5'1" SpO2: 97% Weight: 158 lbs 02/29/2016 Blood Pressure 1: 152/82 Code: 8480-6 BMI: 30.4 Code: 06292-4 Heart Rate 1: 71 bpm Height: 5'1" SpO2: 96% Weight: 161 lbs 02/03/2016 Blood Pressure 1: 148/88 Code: 8480-6 BMI: 30.6 Code: 79714-9 Heart Rate 1: 72 bpm Height: 5'1" SpO2: 98% Weight: 162 lbs 12/21/2015 Blood Pressure 1: 180/78 Code: 8480-6 BMI: 30.9 Code: 15623-3 Heart Rate 1: 64 bpm Height: 5'1" SpO2: 97% Weight: 163 lbs 8 oz 10/25/2015 Blood Pressure 1: 150/78 Code: 8480-6 BMI: 31.0 Code: 75819-4 Heart Rate 1: 73 bpm Height: 5'1" SpO2: 98% Weight: 164 lbs 10/19/2015 Blood Pressure 1: 122/72 Code: 8480-6 BMI: 31.6 Code: 10753-0 Heart Rate 1: 88 bpm Height: 5'1" SpO2: 98% Weight: 167 lbs 06/22/2015 Blood Pressure 1: 150/82 Code: 8480-6 BMI: 31.4 Code: 29207-8 Heart Rate 1: 86 bpm Height: 5'1" SpO2: 96% Weight: 166 lbs 12/22/2014 Blood Pressure 1: 160/92 Code: 8480-6 BMI: 31.2 Code: 91294-7 Heart Rate 1: 85 bpm Height: 5'1" SpO2: 97% Weight: 165 lbs 08/17/2014 Blood Pressure 1: 138/80 Code: 8480-6 BMI: 31.6 Code: 94612-5 Heart Rate 1: 77 bpm Height: 5'1" SpO2: 97% Weight: 167 lbs 04/13/2014 Blood Pressure 1: 144/88 Code: 8480-6 BMI: 31.6 Code: 28227-3 Heart Rate 1: 90 bpm Height: 5'1" Weight: 167 lbs 12/11/2013 Blood Pressure 1: 168/90 Code: 8480-6 BMI: 32.3 Code: 49904-6 Heart Rate 1: 72 bpm Height: 5'1" Weight: 171 lbs 11/10/2013 Blood Pressure 1: 150/80 Code: 8480-6 BMI: 32.3 Code: 85039-1 Heart Rate 1: 76 bpm Height: 5'1" Weight: 171 lbs 08/11/2013 Blood Pressure 1: 152/80 Code: 8480-6 BMI: 32.5 Code: 49177-0 Heart Rate 1: 92 bpm Height: 5'1" Temperature: 36.7 (C) / 98.0 (F) Weight: 172 lbs 05/12/2013 Blood Pressure 1: 142/102 Code: 8480-6 Blood Pressure 2: 144/98 Code: 8480-6 BMI: 34.2 Code: 71928-4 Heart Rate 1: 80 bpm Height: 5'1" Weight: 181 lbs 01/06/2013 Blood Pressure 1: 138/76 Code: 8480-6 BMI: 34.6 Code: 09568-0 Heart Rate 1: 64 bpm Height: 5'1" Weight: 183 lbs 10/07/2012 Blood Pressure 1: 146/76 Code: 8480-6 BMI: 35.6 Code: 73822-5 Heart Rate 1: 76 bpm Height: 5'1" Respiratory Rate: 20 bpm Weight: 188 lbs 8 oz 09/11/2012 Blood Pressure 1: 158/92 Code: 8480-6 BMI: 35.7 Code: 72635-1 Heart Rate 1: 76 bpm Height: 5'1" Weight: 189 lbs 07/15/2012 Blood Pressure 1: 158/100 Code: 8480-6 BMI: 36.3 Code: 30212-5 Heart Rate 1: 72 bpm Height: 5'1" Respiratory Rate: 20 bpm Weight: 192 lbs 05/02/2012 Blood Pressure 1: 156/80 Code: 8480-6 BMI: 35.9 Code: 70860-3 Heart Rate 1: 72 bpm Height: 5'1" Weight: 190 lbs 03/28/2012 Blood Pressure 1: 133/88 Code: 8480-6 Heart Rate 1: 78 bpm Weight: 189 lbs 11/27/2011 Blood Pressure 1: 178/80 Code: 8480-6 BMI: 36.7 Code: 96154-5 Heart Rate 1: 72 bpm Height: 5'1" Respiratory Rate: 20 bpm Weight: 194 lbs 10/25/2011 Blood Pressure 1: 122/62 Code: 8480-6 BMI: 37.0 Code: 16671-7 Heart Rate 1: 80 bpm Height: 5'1" [...] 2: / Code: 8480-6 BMI: 37.1 Code: 79848-4 Heart Rate 1: 72 bpm Height: 5'1" Respiratory Rate: 16 bpm SpO2: % Temperature: .0 (C) / 32.0 (F) Weight: 196 lbs 8 oz 05/22/2011 Blood Pressure 1: 147/71 Code: 8480-6 BMI: 18.7 Code: 66741-7 Heart Rate 1: 77 bpm Height: 7'1" Weight: 192 lbs 05/05/2011 Blood Pressure 1: 178/88 Code: 8480-6 BMI: 37.4 Code: 26551-5 Heart Rate 1: 80 bpm Height: 5' [...] Directives Present Encounters Encounter Performer Location Codes ([id number]) 62011 EST. PATIENT, LEVEL IV Diagnosis: Type 2 diabetes mellitus without complications[ICD10: E11.9] Diagnosis: Paroxysmal atrial fibrillation[ICD10: I48.0] Diagnosis: Essential (primary) hypertension[ICD10: I10] [facility] CPT-4: 77087 01/21/2018 ([id number]) 13108 EST. PATIENT, LEVEL III Diagnosis: Paroxysmal atrial fibrillation[ICD10: I48.0] Diagnosis: Other specified anemias[ICD10: D64.89] [facility] CPT-4: 20858 12/04/2017 ([id number]) 24079 EST. PATIENT, LEVEL IV Diagnosis: Benign paroxysmal vertigo, bilateral[ICD10: H81.13] Diagnosis: Essential (primary) hypertension[ICD10: I10] Diagnosis: Other fatigue[ICD10: R53.83] Diagnosis: Other specified anemias[ICD10: D64.89] Diagnosis: Other allergic rhinitis[ICD10: J30.89] Socorro Elaine MD, [facility] CPT-4: 89316 11/13/2017 ([id number]) 71222 EST. PATIENT, LEVEL III Diagnosis: Mild intermittent asthma with (acute) exacerbation[ICD10: J45.21] Diagnosis: Cough[ICD10: R05] Socorro Elaine MD, [facility] CPT-4: 53442 10/30/2017 ([id number]) 82146 EST. PATIENT, LEVEL IV Diagnosis: Gastro-esophageal reflux disease without esophagitis[ICD10: K21.9] Diagnosis: Type 2 diabetes mellitus without complications[ICD10: E11.9] Diagnosis: Other specified anemias[ICD10: D64.89] Diagnosis: Paroxysmal atrial fibrillation[ICD10: I48.0] Socorro Eliane MD, [facility] CPT-4: 24919 09/20/2017 ([id number]) 94443 EST. PATIENT, LEVEL III Diagnosis: Essential (primary) hypertension[ICD10: I10] Clarice Elaine MD, [facility] CPT-4: 16441 05/29/2017 ([id number]) 09750 EST. PATIENT, LEVEL III Diagnosis: Acute bronchitis due to other specified organisms[ICD10: J20.8] Diagnosis: Cough[ICD10: R05] Diagnosis: Other chest pain[ICD10: R07.89] Clarice Elaine MD, [facility] CPT-4: 40999 05/14/2017 ([id number]) 42649 EST. PATIENT, LEVEL IV Diagnosis: Type 2 diabetes mellitus with hyperglycemia[ICD10: E11.65] Diagnosis: Essential (primary) hypertension[ICD10: I10] Diagnosis: Mild intermittent asthma with (acute) exacerbation[ICD10: J45.21] Clarice Elaine MD, [facility] CPT-4: 60729 03/06/2017 ([id number]) 51724 EST. 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 PATIENT, LEVEL III Diagnosis: Mild intermittent asthma with (acute) exacerbation[ICD10: J45.21] Diagnosis: Gastro-esophageal reflux disease without esophagitis[ICD10: K21.9] Jayne Elaine MD [facility] CPT-4: 70359 10/12/2016 ([id number]) 66570 EST. PATIENT, LEVEL IV Diagnosis: Type 2 diabetes mellitus with hyperglycemia[ICD10: E11.65] Diagnosis: Essential (primary) hypertension[ICD10: I10] Diagnosis: Mild intermittent asthma with (acute) exacerbation[ICD10: J45.21] Clarice Elaine MD [facility] CPT-4: 81429 09/04/2016 92109 EST. PATIENT, LEVEL III Diagnosis: Pain in left ankle and joints of left foot[ICD10: M25.572] Diagnosis: Localized edema[ICD10: R60.0] Jayne Elaine MD [facility] CPT-4: 43782 05/30/2016 ([id number]) 32750 EST. PATIENT, LEVEL III Diagnosis: Type 2 diabetes mellitus with hyperglycemia[ICD10: E11.65] Clarice Elaine MD [facility] CPT-4: 11677 05/01/2016 ([id number]) 35528 EST. PATIENT, LEVEL IV Diagnosis: Type 2 diabetes mellitus without complications[ICD10: E11.9] Diagnosis: Moderate persistent asthma, uncomplicated[ICD10: J45.40] Diagnosis: Paroxysmal atrial fibrillation[ICD10: I48.0] Clarice Elaine MD [facility] CPT-4: 56085 02/29/2016 ([id number]) 16062 EST. PATIENT, LEVEL IV Diagnosis: Paroxysmal atrial fibrillation[ICD10: I48.0] Diagnosis: Hypothyroidism, unspecified[ICD10: E03.9] Diagnosis: Type 2 diabetes mellitus without complications[ICD10: E11.9] Diagnosis: Essential (primary) hypertension[ICD10: I10] Diagnosis: Acute maxillary sinusitis, unspecified[ICD10: J01.00] Diagnosis: Moderate persistent asthma, uncomplicated[ICD10: J45.40] Clarice Elaine MD [facility] CPT-4: 65816 02/03/2016 ([id number]) 18781 EST. PATIENT, LEVEL IV Diagnosis: Type 2 diabetes mellitus without complications[ICD10: E11.9] Diagnosis: Hypothyroidism, unspecified[ICD10: E03.9] Diagnosis: Moderate persistent asthma, uncomplicated[ICD10: J45.40] Diagnosis: Essential (primary) hypertension[ICD10: I10] Clarice Elaine MD [facility] CPT-4: 09736 12/21/2015 ([id number]) 56329 EST. 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 PATIENT, LEVEL IV Diagnosis: Type 2 diabetes mellitus without complications[ICD10: E11.9] Diagnosis: Essential (primary) hypertension[ICD10: I10] Diagnosis: Hypothyroidism, unspecified[ICD10: E03.9] Clarice Elaine MD [facility] CPT-4: 03201 06/22/2015 ([id number]) 24992 EST. PATIENT, LEVEL IV Diagnosis: ESSENTIAL HYPERTENSION[ICD9: 401.9] Diagnosis: DIABETES TYPE II[ICD9: 250.00] Clarice Elaine MD [facility] CPT-4: 96535 12/22/2014 ([id number]) 60390 EST. PATIENT, LEVEL IV Diagnosis: ACUTE BRONCHITIS[ICD9: 466.0] Diagnosis: Acute asthma exacerbation[ICD9: 493.92] Diagnosis: ESSENTIAL HYPERTENSION[ICD9: 401.9] Diagnosis: DIABETES TYPE II[ICD9: 250.00] Clarice Elaine MD [facility] CPT-4: 26272 08/17/2014 ([id number]) 72011 EST. PATIENT, LEVEL IV Diagnosis: DIABETES TYPE II[ICD9: 250.00] Diagnosis: ESSENTIAL HYPERTENSION[ICD9: 401.9] Diagnosis: Acute asthma exacerbation[ICD9: 493.92] Clarice Elaine MD [facility] CPT-4: 62465 04/13/2014 ([id number]) 35938 EST. PATIENT, LEVEL IV Diagnosis: DIABETES TYPE II[ICD9: 250.00] Diagnosis: ESSENTIAL HYPERTENSION[ICD9: 401.9] Diagnosis: HYPOTHYROIDISM[ICD9: 244.9] Clarice Elaine MD [facility] CPT-4: 51179 12/11/2013 ([id number]) 74353 EST. PATIENT, LEVEL IV Diagnosis: DM W/O COMPLICATION TYPE II, UNCONTROLLED[ICD9: 250.02] Diagnosis: ESSENTIAL HYPERTENSION[ICD9: 401.9] Clarice Elaine MD [facility] CPT- 4: 14768 11/10/2013 ([id number]) 76953 EST. PATIENT, LEVEL IV Diagnosis: DM W/O COMPLICATION TYPE II, UNCONTROLLED[SNOMED: 99763415] Diagnosis: ESSENTIAL HYPERTENSION[SNOMED: 09637286] Diagnosis: ACUTE BRONCHITIS[ICD9: 466.0] Clarice Elaine MD [facility] CPT-4: 23891 08/11/2013 ([id number]) 77462 EST. PATIENT, LEVEL IV Diagnosis: DM W/O COMPLICATION TYPE II, UNCONTROLLED[SNOMED: 19875354] Diagnosis: ATRIAL FIBRILLATION[ICD9: 427.31] Diagnosis: ESSENTIAL HYPERTENSION[SNOMED: 07060106] Clarice Elaine MD [facility] CPT-4: 22464 05/12/2013 ([id number]) 36077 EST. PATIENT, LEVEL IV Diagnosis: DM W/O COMPLICATION TYPE II, UNCONTROLLED[SNOMED: 93819813] Diagnosis: ESSENTIAL HYPERTENSION[SNOMED: 10099651] Clarice Elaine MD [facility] CPT-4: 05356 01/06/2013 ([id number]) 36878 EST. PATIENT, LEVEL IV Diagnosis: DIABETES TYPE II[SNOMED: 071056333] Diagnosis: ESSENTIAL HYPERTENSION[SNOMED: 68645721] Diagnosis: Acute asthma exacerbation[ICD9: 493.92] Diagnosis: Fatigue[ICD9: 780.79] Clarice Elaine MD [facility] CPT-4: 28717 10/07/2012 ([id number]) 55881 EST. PATIENT, LEVEL IV Diagnosis: DM W/O COMPLICATION TYPE II, UNCONTROLLED[SNOMED: 14932922] Diagnosis: Lump of breast, right[ICD9: 611.72] Diagnosis: Lump on neck[ICD9: 784.2] Clarice Elaine MD [facility] CPT-4: 83908 09/11/2012 ([id number]) 18212 EST. PATIENT, LEVEL IV Diagnosis: ESSENTIAL HYPERTENSION[SNOMED: 44865555] Diagnosis: Atrial fibrillation[ICD9: 427.31] Diagnosis: Fatigue[ICD9: 780.79] Diagnosis: Encounter for monitoring digoxin therapy[ICD9: V58.83] Clarice Elaine MD [facility] CPT-4: 60531 07/15/2012 ([id number]) 57999 EST. PATIENT, LEVEL IV Diagnosis: DIABETES TYPE II[SNOMED: 235302212] Diagnosis: ESSENTIAL HYPERTENSION[SNOMED: 22357729] Clarice Elaine MD [facility] CPT-4: 44335 05/02/2012 ([id number]) 62610 EST. PATIENT, LEVEL IV Diagnosis: DM W/O COMPLICATION TYPE II, UNCONTROLLED[SNOMED: 09492174] Diagnosis: ESSENTIAL HYPERTENSION[SNOMED: 34476969] Diagnosis: HYPERLIPIDEMIA[ICD9: 272.4] Clarice Elaine MD [facility] CPT-4: 89766 03/28/2012 ([id number]) 14126 EST. PATIENT, LEVEL IV Diagnosis: DM W/O COMPLICATION TYPE II, UNCONTROLLED[SNOMED: 87778275] Diagnosis: ESSENTIAL HYPERTENSION[SNOMED: 70964525] Clarice Elaine MD, [facility] CPT-4: 06353 11/27/2011 ([id number]) 70313 EST. PATIENT, LEVEL III Diagnosis: ESSENTIAL HYPERTENSION[SNOMED: 46893908] Diagnosis: ANEMIA[ICD9: 285.9] Diagnosis: Gastritis[ICD9: 535.50] Clarice Elaine MD, [facility] CPT-4: 96789 10/25/2011 ([id number]) 28798 EST. PATIENT, LEVEL III Diagnosis: Anemia associated with acute blood loss[ICD9: 285.1] Diagnosis: Gastritis, acute with hemorrhage[ICD9: 535.01] Clarice Elaine MD, [facility] CPT-4: 83437 10/11/2011 ([id number]) 04386 EST. PATIENT, LEVEL IV Diagnosis: Hematochezia[ICD9: 578.1] Diagnosis: ENCNTR LONG-RX USE NEC[ICD9: V58.69] Diagnosis: Abdominal pain[ICD9: 789.00] Clarice Elaine MD, [facility] CPT-4: 81266 10/04/2011 ([id number]) 52152 EST. PATIENT, LEVEL IV Diagnosis: DIABETES TYPE II[SNOMED: 654988060] Diagnosis: ESSENTIAL HYPERTENSION[SNOMED: 89355351] Diagnosis: Coronary artery disease[ICD9: 414.00] Clarice Elaine MD, [facility] CPT-4: 26140 09/25/2011 ([id number]) 80282 EST. PATIENT, LEVEL IV Diagnosis: Muscle spasm[ICD9: 728.85] Diagnosis: Arthralgia[ICD9: 719.40] Diagnosis: ESSENTIAL HYPERTENSION[SNOMED: 39986599] Clarice Elaine MD, [facility] CPT-4: 94418 07/31/2011 19093 EST. PATIENT, LEVEL III Diagnosis: ACUTE SINUSITIS[ICD9: 461.9] Diagnosis: Cervicalgia[ICD9: 723.1] Socorro Elaine MD, [facility] CPT-4: 69051 05/22/2011 99137 EST. PATIENT, LEVEL IV Diagnosis: HYPERLIPIDEMIA[ICD9: 272.4] Diagnosis: HYPOTHYROIDISM[ICD9: 244.9] Diagnosis: DM W/O COMPLICATION TYPE II, UNCONTROLLED[SNOMED: 75340599] [facility] CPT-4: 47216 05/05/2011 Plan of Care Planned Activity Notes [...] uncontrolled. 01/21/2018 Appointment: Clarice Elaine WPtel: [phone] [facility] (15 min) Moderate 01/21/2018 Patient Education: Patient [...] IV. 12/04/2017 Appointment: [phone] (15 min) Moderate 12/04/2017 Patient Education: Patient [...] instructions/medication interventions. HTN- elevated today-monitor at home Ewcsqx-umiwsdr-pstch labs Allergies-add flonase nasal spray 11/13/2017 Visit Plan: BPPV - Benign Paroxysmal Positional Vertigo - discussed diagnosis with the patient, offered the pt the appropriate additional information in hand-out. Pt instructed in home exercises to help alleviate and prevent future recurrent episodes of vertigo. Pt informed that if symptoms worsen, call the office for further instructions/medication interventions. HTN- elevated today-monitor at home Asdasl-cgysvhp-npmyw labs Allergies-add flonase nasal spray 11/13/2017 Appointment: Socorro Salmeron WPtel: [facility] [place] [facility] [phone] (30 min) Complex 11/13/2017 Patient Education: Patient [...] acute changes. 10/30/2017 Appointment: Socorro Salmeron WPtel: [facility] [place] [place] [facility] [place] [facility] [phone] (30 min) Complex 10/30/2017 Patient Education: Patient Medication Summary Completed 10/30/2017 Appointment: Clarice Elaine WPtel: [facility] [place] [facility] (15 min) Moderate 09/25/2017 Visit Plan: GERD-continue [...] Hgb A1C 09/20/2017 Appointment: Socorro Salmeron WPtel: [phone] [phone] [place] (30 min) Complex 09/20/2017 Patient Education: Patient Medication Summary Completed 09/20/2017 Appointment: Clarice Elaine WPtel: [phone] [facility] (15 min) Moderate 06/26/2017 Visit Plan: Hypertension [...] 05/29/2017 Appointment: Clarice Elaine [facility]Ptel: [phone] [facility] [place] (15 min) Moderate 05/29/2017 Patient Education: Patient Medication Summary Completed 05/29/2017 Patient Education: Hypertension Completed 05/29/2017 Visit Plan: Bronchitis - acute case of bronchitis identified. Pt has been given antibiotics, breathing treatments as appropriate, and pt has been instructed to call if symptoms are not improved, or if symptoms acutely worsen. Chest pain - chest wall - toradol shot hospira [id number] november 2018 05/14/2017 Visit Plan: Bronchitis - acute case of bronchitis identified. Pt has been given antibiotics, breathing treatments as appropriate, and pt has been instructed to call if symptoms are not improved, or if symptoms acutely worsen. Chest pain - chest wall - toradol shot [facility] [id number] november 2018 05/14/2017 Appointment: Clarice Elaine WPtel[phone] [facility] (15 min) Moderate 05/14/2017 Patient Education: Patient [...] today. 03/06/2017 Appointment: Clarice Elaine WPtel: [phone] [facility] (15 min) Moderate 03/06/2017 Patient Education: Patient Medication Summary Completed 03/06/2017 Patient Education: Hypertension Completed 03/06/2017 Appointment: Clarice Elaine WPtel: [phone] [facility] (15 min) Moderate 12/05/2016 Visit Plan: Hypertension [...] treatment. 11/01/2016 Appointment: Clarice Elaine WPtel: [phone] [facility] (15 min) Moderate 11/01/2016 Patient Education: Patient [...] ILLNESS. 10/18/2016 Appointment: Clarice Elaine WPtel: [phone] [facility] (15 min) Moderate 10/18/2016 Patient Education: Patient [...] changes 10/12/2016 Appointment: Jayne Ragland WPtel: [phone] [facility] (30 min) Complex 10/12/2016 Patient Education: Patient [...] at home. 09/04/2016 Appointment: Clarice Elaine WPtel: [phone] [facility] (15 min) Moderate 09/04/2016 Patient Education: Patient Medication Summary Completed 09/04/2016 Patient Education: Obesity Completed 09/04/2016 Patient Education: Hypertension Completed 09/04/2016 Appointment: Jayne Ragland WPtel: [phone] [facility] [facility] - Annual Wellness Visit 06/08/2016 Visit [...] glucose control. 05/01/2016 Appointment: Clarice Elaine WPtel: [facility] [place] [place] (15 min) Moderate 05/01/2016 Patient Education: Patient [...] acute changes 02/29/2016 Appointment: Clarice Elaine WPtel: [facility] [place] [place] [facility] Surgical Procedure 02/29/2016 Patient Education: Patient Medication [...] pressure readings. 12/21/2015 Appointment: Clarice Elaine WPtel: [facility] [place] [place] [facility] (15 min) Moderate 12/21/2015 Patient Education: Patient [...] shot today 10/25/2015 Appointment: Clarice Elaine WPtel: [facility] [place] [facility] (15 min) Moderate 10/25/2015 Patient Education: Patient [...] ILLNESS. 10/19/2015 Appointment: Socorro Salmeron [facility]el: [phone] [phone] (30 min) Complex 10/19/2015 Patient Education: Patient [...] at home. 08/17/2014 Appointment: Clarice Elaine WPtel: [address] [place] [address] Follow up 08/17/2014 Patient Education: Patient Medication [...] prn albuterol. 04/13/2014 Appointment: Clarice Elaine WPtel: [facility] [place] [facility] [place] [place] Follow up 04/13/2014 Patient Education: Patient Medication [...] of control. 12/11/2013 Appointment: Clarice Elaine WPtel: [address] [place], [place] [id number] Follow up 12/11/2013 Patient Education: Patient Medication [...] concerns. 11/10/2013 Appointment: [phone] [facility] [place] 11/10/2013 Patient Education: Patient Medication Summary Completed 11/10/2013 Patient Education: Hypertension Completed 11/10/2013 Appointment: Clarice Elaine [facility]el[phone] [facility] [place] Lab Draw 11/04/2013 Patient Education: Patient [...] pharmacy. 08/11/2013 Appointment: Clarice Elaine [facility]el[phone] [facility] Follow up 08/11/2013 Patient Education: Patient Medication [...] today 05/12/2013 Appointment: Clarice Elaine WPtel: [phone] [facility] Follow up 05/12/2013 Patient Education: Patient Medication [...] glucose control. 01/06/2013 Appointment: Clarice Elaine WPtel: [phone] [facility] Follow up 01/06/2013 Patient Education: Patient Medication [...] today. 10/07/2012 Appointment: Clarice Elaine WPtel[phone] [facility] Follow up 10/07/2012 Patient Education: Patient Medication [...] ultrasound 09/11/2012 Appointment: Clarice Elaine WPtel[phone] [facility] Follow up 09/11/2012 Patient Education: Patient Medication [...] digoxin level. 07/15/2012 Appointment: Clarice Elaine WPtel: [phone] [facility] Follow up 07/15/2012 Patient Education: Patient Medication [...] with Plavix. 05/02/2012 Appointment: Clarice Elaine WPtel: [phone] [facility] [place] Follow up 05/02/2012 Patient Education: Patient [...] ASPIRIN COMPELTELY. 03/28/2012 Appointment: Clarice Elaine WPtel: [address] [place], [place] [id number] Follow up 03/28/2012 Patient Education: Patient Medication [...] at home. 11/27/2011 Appointment: Clarice Elaine WPtel: [facility] [place] [facility] Follow up 11/27/2011 Patient Education: Patient Medication Summary Completed 11/27/2011 Patient Education: High Blood Pressure: Essential Hypertension Completed 11/27/2011 Patient Education: Patient Medication Summary Completed 11/06/2011 Appointment: Clarice Elaine WPtel: [address] [place], [place] [phone] [place] Other 11/03/2011 Appointment: Clarice Elaine WPtel: [address] [place], [place] [phone] Other 11/02/2011 Appointment: Clarice Elaine WPtel: [address] [place] [id number] [place] Lab Draw 10/31/2011 Visit Plan: Hypertension [...] times daily. 10/25/2011 Appointment: Clarice Elaine WPtel: [facility] [place] [place] Follow up 10/25/2011 Patient Education: Patient Medication Summary Completed 10/25/2011 Patient Education: High Blood Pressure: Essential Hypertension Completed 10/25/2011 Appointment: Clarice Elaine WPtel: [facility] [place] [facility] [place] [place] Lab Draw 10/16/2011 Patient Education: Patient [...] to 11.4 10/11/2011 Appointment: Clarice Elaine WPtel: [address] [place] [address] Other 10/11/2011 Patient Education: Patient Medication Summary Completed 10/11/2011 Appointment: Clarice Elaine WPtel: [address] [place], [place] [id number] [place] Other 10/10/2011 Visit Plan: Abdominal pain and [...] remained stable. 10/04/2011 Appointment: Clarice Elaine WPtel: [address] [place] [address] Follow up 10/04/2011 Patient Education: Patient Medication [...] not improve. 09/25/2011 Appointment: Clarice Elaine WPtel: [address] [place], [place] [phone] Other 09/25/2011 Patient Education: Patient Medication Summary [...] not improve. 07/31/2011 Appointment: Clarice Elaine WPtel: [address] [place], [place] [phone] Other 07/31/2011 Patient Education: Patient Medication Summary [...] on use. 05/22/2011 Appointment: Socorro Salmeron WPtel: [facility] [place] [facility] [phone] Other 05/22/2011 Patient Education: Patient Medication Summary [...] dose increased. 05/05/2011 Appointment: Clarice Elaine WPtel: [facility] [place] [facility] [place] [place] Other 05/05/2011 Patient Education: Patient Medication Summary Completed 05/05/2011 Patient Education: High Cholesterol Completed 05/05/2011 Appointment: Clarice Elaine WPtel: [facility] [place] [facility] [place] [place] Other 05/04/2011 Appointment: Clarice Elaine WPtel: [address] [place], [place] [phone] [place] Lab Draw 05/02/2011 Patient Education: Patient [...] symbicort. Pt given steroid shot today. . GI bleed secondary to the medication [...] INSTEAD OF STOPPING THE ASPIRIN COMPELTELY. stop the janumet 50/1000mg and start on [...] in blood pressure readings at home. . DR. ELAINE IN TO SEE PT [...] THE ACUTE ILLNESS. . Diabetes Mellitus - Uncontrolled - per [...] salt in the diet. Flu shot today CHECK LABS VERTIGO EXERCISES FLONASE NASAL SPRAY . BPPV - Benign Paroxysmal Positional Vertigo - discussed diagnosis with the patient, offered the pt the appropriate additional information in hand-out. Pt instructed in home exercises to help alleviate and prevent future recurrent episodes of vertigo. Pt informed that if symptoms worsen, call the office for further instructions/medication interventions. HTN-elevated today-monitor at home Qagrmy-fmagbrj-wqbcr labs Allergies-add flonase nasal spray . Esophageal [...] to use Symbicort and prn albuterol. . GERD-continue protonix and carafate-low spice diet [...] months based on previous levels of control. STOP ENSURE - START ON GLUCERNA DECREASE [...] to allow for greater blood glucose control. BIOTENE MOUTHWASH FOR DRY MOUTH AND [...] any worse. RX sent to patient's pharmacy. stop your current metformin - Dr. Elaine [...] home, call office with blood pressure readings. take the glipizide 5mg 1/2 pill twice [...] - chest wall - toradol shot [facility] [id number] november 2018 . Bronchitis - acute case of bronchitis identified. Pt has been given antibiotics, breathing treatments as appropriate, and pt has been instructed to call if symptoms are not improved, or if symptoms acutely worsen. Chest pain - chest wall - toradol shot [facility] [id number] november 2018 . Asthma Exacerbation - Asthma [...] monitor for acute changes. kenalog shot today probiotic increase to three times [...] changes Afib - keep appt with Dr. Lauren as previously scheduled. . Diabetes Mellitus - [...] further instructions/medication interventions. HTN-elevated today-monitor at home Mduizm-xkocbdo-xhobh labs Allergies-add flonase nasal spray . Hypertension [...] are starting to become less controlled. . Hypertension - well controlled - continue [...] based on previous levels of control. . Abdominal pain and Hematochezia - I [...]
[2018-12-28 05:17] VITALS: BP 138/79
--- NOTE | 2018-12-28 05:17 | NUR ---
D/C INSTRUCTIONS TO PT. TOLD TO READ ALL PAPERS. SCRIPTS FAXED. PT LEFT AMBULATORY WITH . PT KNOWS F/U. I WENT OVER THE HANDTYPED BY DR INFORMATION ON THE CHART. PT HAD NO IV. DR WAS OK WITH D/C VS TEMP AND AUSC HR SLIGHTLY IRREG.
--- OUTSIDE RECORDS SUMMARY | 2018-12-28 05:23 | XMS REPORT | Continuity of Care Document ---
Author Organization Unknown Address Unknown Allergies Active Description Code Type Severity Reaction Onset Reported/Identified Relationship to Patient Clinical Status Yes cephalexin [id number] Drug Allergy Unknown N/A 04/23/2006 Yes morphine [id number] Drug Allergy Unknown N/A 04/23/2006 Yes prednisone [id number] Drug Allergy Unknown N/A 04/23/2006 Yes theophylline [id number] Drug Allergy Unknown N/A 04/23/2006 Yes norfloxacin [id number] Drug Allergy Unknown GI INTOLERANCE 09/11/2007 Yes trovafloxacin [id number] Drug Allergy Unknown GI INTOLERANCE 09/11/2007 Yes azithromycin [id number] Drug Allergy Unknown N/A 06/23/2012 Yes levofloxacin [id number] Drug Allergy Unknown N/A 06/23/2012 Yes meloxicam [id number] Drug Allergy Unknown N/A 06/23/2012 Yes metronidazole [id number] Drug Allergy Unknown N/A 06/23/2012 Yes prednisone [id number] Drug Allergy Moderate STOMACH BLEED 10/19/2015 Yes metoprolol [id number] Drug Allergy Unknown NECK SPASMS 10/18/2016 Medications [...] NOS 09/23/2011 Ot 414.01 CORONARY ATHEROSCLEROSIS OF [place] CORON 09/23/2011 Ot 493.90 ASTHMA, UNSPECIFIED 09/23/2011 Ot 530.81 ESOPHAGEAL REFLUX 09/23/2011 Ot V85.35 BODY MASS INDEX 35.0-35.9, ADULT 10/05/2011 Ot 729.82 CRAMP IN LIMB 10/05/2011 Ot 787.02 NAUSEA ALONE 10/05/2011 Ot 792.1 ABN FIND-STOOL CONTENTS 10/06/2011 Ot 530.11 REFLUX ESOPHAGITIS 10/06/2011 Ot 535.50 UNSP GASTRITIS GASTRODUODENITIS W/O ME 10/06/2011 Ot 553.3 DIAPHRAGMATIC HERNIA 01/03/2012 Ot 792.1 ABN FIND-STOOL CONTENTS 01/03/2012 Ot V58.69 OTH MED,LT,CURRENT USE 01/09/2012 Ot 285.9 ANEMIA NOS 06/28/2012 Ot 244.9 HYPOTHYROIDISM NOS 06/28/2012 Ot 250.00 DIAB LIZZETH WO COMPL, TYPE II OR UNSPEC TY 06/28/2012 Ot 272.4 HYPERLIPIDEMIA NEC/NOS 06/28/2012 Ot 285.29 ANEMIA OF OTHER CHRONIC DISEASE 06/28/2012 Ot 300.00 ANXIETY STATE NOS 06/28/2012 Ot 401.9 HYPERTENSION NOS 06/28/2012 Ot 414.01 CORONARY ATHEROSCLEROSIS OF [place] CORON 06/28/2012 Ot 427.31 ATRIAL FIBRILLATION 06/28/2012 [...] 733.6 TIETZE'S DISEASE 06/28/2012 Ot 792.1 ABN FIND-STOOL CONTENTS 06/28/2012 Ot V12.51 HX-VENOUS THROMBOSIS EMBOLISM 06/28/2012 Ot V12.55 PERSONAL HISTORY OF PULMONARY EMBOLISM 06/28/2012 Ot V17.3 FAM HX-ISCHEM HEART DIS 06/28/2012 Ot V45.82 PERCUTANEOUS TRANSLUM [...] VEGA MD Ot 414.01 CORONARY ATHEROSCLEROSIS OF [place] CORON 12/23/2012 JUAN FRANCISCO VEGA MD Ot [...] DSOUZA MD Ot 414.01 CORONARY ATHEROSCLEROSIS OF [place] CORON 10/17/2013 LEANNA DSOUZA MD Ot 427.31 [...] DO Ot 716.90 ARTHROPATHY NOS-UNSPEC 12/10/2013 STACY INFANET DO Ot 780.4 DIZZINESS AND GIDDINESS 12/10/2013 STACY INFANTE DO Ot 784.0 HEADACHE 09/02/2014 LEANNA DSOUZA MD Ot 414.01 09/02/2014 LEANNA DSOUZA MD Ot 427.31 11/09/2014 Ot 726.73 11/09/2014 Ot 729.5 11/09/2014 Ot 734 11/09/2014 Ot V76.12 11/09/2014 Ot V76.12 11/09/2014 Ot 723.1 11/09/2014 Ot 285.9 11/09/2014 Ot 272.4 11/09/2014 Ot 401.9 11/09/2014 Ot 414.00 11/09/2014 Ot 414.01 11/09/2014 Ot 786.50 11/09/2014 Ot 792.1 11/09/2014 Ot V58.69 11/09/2014 Ot 285.9 11/09/2014 Ot 473.9 11/09/2014 Ot 611.72 11/09/2014 Ot 784.2 11/09/2014 Ot 786.6 11/09/2014 LEANNA DSOUZA MD Ot 272.4 11/09/2014 LEANNA DSOUZA MD Ot 397.0 11/09/2014 MEET REINA, LEANNA Mayer Ot 414.00 11/09/2014 LEANNA DSOZUA MD Ot 424.0 11/09/2014 MEET REINA, LEANNA Mayer Ot 427.31 11/09/2014 MEET REINA, LEANNA Mayer Ot 414.01 11/09/2014 MEET REINA, LEANNA Mayer Ot 427.31 12/07/2014 LEANNA DSOUZA MD Ot 401.9 12/07/2014 MEET REINA, LEANNA Mayer Ot 414.00 12/07/2014 LEANNA DSOUZA MD Ot 786.50 12/07/2014 LEANNA DSOUZA MD Ot V12.51 12/31/2014 LEANNA DSOUZA MD Ot 401.9 12/31/2014 MEET REINA, LEANNA Mayer Ot 414.00 12/31/2014 LEANNA DSOUZA MD Ot 786.50 12/31/2014 LEANNA DOSUZA MD Ot V12.51 02/15/2015 JULIAN MARTIN DO Ot 300.00 02/15/2015 JULIAN MARTIN DO Ot 493.90 02/15/2015 JULIAN MARTIN DO Ot 786.09 03/12/2015 JULIAN MARTIN DO Ot 300.00 03/12/2015 JULIAN MARTIN DO Ot 493.90 03/12/2015 JULIAN MARTIN DO Ot 786.09 09/10/2015 SILVIA REINA, JUAN FRANCISCO Singer Ot E11.9 TYPE 2 DIABETES MELLITUS WITHOUT COMPLIC 09/10/2015 SILVIA REINA, JUAN FRANCISCO Singer Ot E78.5 HYPERLIPIDEMIA, UNSPECIFIED 09/10/2015 SILVIA REIAN, JUAN FRANCISCO Singer Ot E89.0 POSTPROCEDURAL HYPOTHYROIDISM 09/10/2015 JUAN FRANCISCO VEGA MD Ot F41.9 ANXIETY DISORDER, UNSPECIFIED 09/10/2015 SILVIA REINA, JUAN FRANCISCO Singer Ot I25.10 ATHSCL HEART DISEASE OF [place] CORONARY 09/10/2015 JUAN FRANCISCO VEGA MD Ot I48.0 PAROXYSMAL ATRIAL FIBRILLATION 09/10/2015 SILVIA REINA, JUAN FRANCISCO Singer Ot J45.909 UNSPECIFIED ASTHMA, UNCOMPLICATED 09/10/2015 SILVIA REINA, JUAN FRANCISCO Singer Ot K21.9 GASTRO-ESOPHAGEAL REFLUX DISEASE WITHOUT 09/10/2015 SILVIA REINA, JUAN FRANCISCO Singer Ot R07.9 CHEST PAIN, UNSPECIFIED 09/10/2015 SILVIA REINA, JUAN FRANCISCO Singer Ot 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 09/10/2015 JUAN FRANCISCO VEGA MD Ot Z95.5 PRESENCE OF CORONARY ANGIOPLASTY IMPLANT 10/19/2015 Ot 792.1 10/19/2015 Ot V58.69 10/19/2015 Ot 285.9 10/20/2015 JUAN FRANCISCO VEGA MD Ot E11.9 10/20/2015 SILVIA REINA, JUAN FRANCISCO Singer Ot E78.5 10/20/2015 SILVIA REINA, JUAN FRANCISCO Singer Ot E87.3 10/20/2015 SILVIA REINA, JUAN FRANCISCO Singer Ot E89.0 10/20/2015 SILVIA REINA, JUAN FRANCISCO Singer Ot F41.9 10/20/2015 JUAN FRANCISCO VEGA MD Ot I10 10/20/2015 SILVIA REINA, JUAN FRANCISCO Singer Ot I25.10 10/20/2015 SILVIA REINA, JUAN FRANCISCO [...] FRANCISCO A Ot E78.5 HYPERLIPIDEMIA, UNSPECIFIED 10/21/2015 SILVIA REINA, JUAN FRANCISCO A Ot E87.3 ALKALOSIS 10/21/2015 JUAN FRANCISCO VEGA MD Ot E89.0 POSTPROCEDURAL HYPOTHYROIDISM 10/21/2015 JUAN FRANCISCO VEGA MD Ot F41.9 ANXIETY DISORDER, UNSPECIFIED 10/21/2015 JUAN FRANCISCO VEGA MD Ot I10 ESSENTIAL (PRIMARY) HYPERTENSION 10/21/2015 JUAN FRANCISCO VEGA MD Ot I25.10 ATHSCL HEART DISEASE OF [place] CORONARY 10/21/2015 JUAN FRANCISCO VEGA MD Ot [...] MD Ot I25.10 ATHSCL HEART DISEASE OF [place] CORONARY 10/21/2015 JUAN FRANCISCO VEGA MD Ot I48.0 PAROXYSMAL ATRIAL FIBRILLATION 10/21/2015 JUAN FRANCISCO VEGA MD Ot 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 10/21/2015 SILVIA REINA, JUAN FRANCISCO Singer Ot J30.2 OTHER SEASONAL ALLERGIC RHINITIS 10/21/2015 SILVIA REINA, JUAN FRANCISCO Singer Ot J44.1 CHRONIC OBSTRUCTIVE PULMONARY DISEASE W 10/21/2015 SILVIA REINA, JUAN FRANCISCO Singer Ot K21.9 GASTRO-ESOPHAGEAL REFLUX DISEASE WITHOUT 10/21/2015 JUAN FRANCISCO VEGA MD Ot M06.9 RHEUMATOID ARTHRITIS, UNSPECIFIED 10/21/2015 SILVIA REINA, JUAN FRANCISCO Singer Ot R07.89 OTHER CHEST PAIN 10/21/2015 SILVAI REINA, JUAN FRANCISCO Singer Ot Z86.718 PERSONAL HISTORY OF OTHER VENOUS THROMBO 10/21/2015 SILVIA REINA, JUAN FRANCISCO Singer Ot Z95.5 PRESENCE OF CORONARY ANGIOPLASTY IMPLANT 04/19/2016 Ot V76.12 OTH SCREEN MAMMO- MALIGN NEOPLASM OF [place] 04/19/2016 Ot 723.1 CERVICALGIA 04/19/2016 Ot 285.9 ANEMIA NOS 04/19/2016 Ot 272.4 HYPERLIPIDEMIA NEC/NOS 04/19/2016 Ot 401.9 HYPERTENSION NOS 04/19/2016 Ot 414.00 CORON ATHEROSCLER NOS TYPE VESSEL, NATIV 04/19/2016 Ot 414.01 CORONARY ATHEROSCLEROSIS OF [place] CORON 04/19/2016 Ot 786.50 CHEST PAIN NOS 04/19/2016 Ot 792.1 ABN FIND-STOOL CONTENTS 04/19/2016 Ot V58.69 OTH MED,LT,CURRENT USE 04/19/2016 Ot 285.9 ANEMIA NOS 04/19/2016 [...] DSOUZA MD Ot 414.01 CORONARY ATHEROSCLEROSIS OF [place] CORON 04/19/2016 LEANNA DSOUZA MD Ot 427.31 ATRIAL FIBRILLATION 04/19/2016 LEANNA DSOUZA MD Ot 401.9 HYPERTENSION NOS 04/19/2016 LEANNA DSOUZA [...] Ot E66.9 OBESITY, UNSPECIFIED 04/21/2016 JULIAN MARTIN DO, Ot J45.909 UNSPECIFIED ASTHMA, UNCOMPLICATED 04/21/2016 JULIAN [...] Ot E66.9 OBESITY, UNSPECIFIED 05/22/2016 JULIAN MARTIN DO, Ot J45.909 UNSPECIFIED ASTHMA, UNCOMPLICATED 05/22/2016 JULIAN MARTIN DO Ot R06.00 DYSPNEA, UNSPECIFIED 10/18/2016 Ot 792.1 ABN FIND-STOOL CONTENTS 10/18/2016 Ot V58.69 OT MED,LT,CURRENT USE 10/18/2016 Ot 285.9 ANEMIA NOS 10/19/2016 JUAN FRANCISCO VEGA MD Ot E11.9 TYPE 2 DIABETES MELLITUS WITHOUT COMPLIC 10/19/2016 JUAN FRANCISCO VEGA MD, Ot E78.00 PURE HYPERCHOLESTEROLEMIA, UNSPECIFIED 10/19/2016 JUAN FRANCISCO VEGA MD Ot E89.0 POSTPROCEDURAL HYPOTHYROIDISM 10/19/2016 JUAN FRANCISCO VEGA MD, Ot F41.9 ANXIETY DISORDER, UNSPECIFIED 10/19/2016 JUAN FRANCISCO VEGA MD Ot I10 ESSENTIAL (PRIMARY) HYPERTENSION 10/19/2016 JUAN FRANCISCO VEGA MD Ot I25.10 ATHSCL HEART DISEASE OF [place] CORONARY 10/19/2016 JUAN FRANCISCO VEGA MD Ot [...] 10/19/2016 JUAN FRANCISCO VEGA MD Ot Z79.84 [facility] (CURRENT) USE OF ORAL HYPOGLYC 10/19/2016 JUAN [...] MD Ot I10 ESSENTIAL (PRIMARY) HYPERTENSION 10/20/2016 SILVIA MD, JUAN FRANCISCO A Ot I25.10 ATHSCL HEART DISEASE OF [place] CORONARY 10/20/2016 JUAN FRANCISCO VEGA MD Ot [...] HERNIA WITHOUT OBSTRUCTION 10/20/2016 JUAN FRANCISCO VEGA MD, Ot M06.9 RHEUMATOID ARTHRITIS, UNSPECIFIED 10/20/2016 JUAN FRANCISCO VEGA MD Ot M19.91 PRIMARY OSTEOARTHRITIS, UNSPECIFIED SITE 10/20/2016 JUAN FRANCISCO VEGA MD Ot R06.00 DYSPNEA, UNSPECIFIED 10/20/2016 JUAN FRANCISCO VEGA MD Ot 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 10/20/2016 JUAN [...] APRN Ot I25.10 ATHSCL HEART DISEASE OF [place] CORONARY 05/16/2017 CR CASON APRN Ot J44.9 CHRONIC OBSTRUCTIVE PULMONARY DISEASE, U 05/16/2017 CR CASON APRN Ot K21.9 GASTRO-ESOPHAGEAL REFLUX DISEASE WITHOUT 05/16/2017 CR CASON APRN Ot M06.9 RHEUMATOID ARTHRITIS, UNSPECIFIED 05/16/2017 CR CASON APRN Ot R10.11 RIGHT UPPER QUADRANT PAIN 05/16/2017 CR CASON MORTARMAN Ot S39.011A STRAIN OF MUSCLE, FASCIA AND TENDON OF A 05/16/2017 CR CAOSN APRN Ot Z79.84 [facility] (CURRENT) USE OF ORAL HYPOGLYC 05/16/2017 CR [...] MD Ot I25.10 ATHSCL HEART DISEASE OF [place] CORONARY 06/01/2017 RACHAEL PIMENTEL MD Ot J01.90 ACUTE SINUSITIS, UNSPECIFIED 06/01/2017 RACHAEL PIMENTEL MD Ot J44.9 CHRONIC OBSTRUCTIVE PULMONARY DISEASE, U 06/01/2017 RACHAEL PIMENTEL MD Ot K21.9 GASTRO-ESOPHAGEAL REFLUX DISEASE WITHOUT 06/01/2017 RACHAEL PIMENTEL MD Ot M06.9 RHEUMATOID ARTHRITIS, UNSPECIFIED 06/01/2017 RACHAEL PIMENTEL MD Ot R42 DIZZINESS AND GIDDINESS 06/01/2017 RACHAEL PIMENTEL MD Ot Z79.84 [facility] (CURRENT) USE OF ORAL HYPOGLYC 06/01/2017 RACHAEL [...] I10 ESSENTIAL (PRIMARY) HYPERTENSION 09/13/2017 JUAN FRANCISCO VEGA MD Ot I25.10 ATHSCL HEART DISEASE OF [place] CORONARY 09/13/2017 JUAN FRANCISCO VEGA MD Ot I48.0 PAROXYSMAL ATRIAL FIBRILLATION 09/13/2017 JUAN FRANCISCO VEGA MD Ot I48.92 UNSPECIFIED ATRIAL FLUTTER 09/13/2017 JUAN FRANCISCO VEGA MD Ot 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 09/13/2017 JUAN FRANCISCO VEGA MD Ot J30.2 OTHER SEASONAL ALLERGIC RHINITIS 09/13/2017 JUAN FRANCISCO VEGA MD Ot J44.9 CHRONIC OBSTRUCTIVE PULMONARY DISEASE, U 09/13/2017 JUAN FRANCISCO VEGA MD Ot K21.9 GASTRO-ESOPHAGEAL REFLUX DISEASE WITHOUT 09/13/2017 JUAN FRANCISCO VEGA MD Ot M06.9 RHEUMATOID ARTHRITIS, UNSPECIFIED 09/13/2017 JUAN FRANCISCO VEGA MD Ot M19.91 PRIMARY OSTEOARTHRITIS, UNSPECIFIED SITE 09/13/2017 JUAN FRANCISCO VEGA MD Ot T46.0X5A ADVERSE EFFECT OF CARDI-STIM GLYCOS/DRUG 09/13/2017 JUAN FRANCISCO VEGA MD Ot Z79.01 [facility] (CURRENT) USE OF 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 09/13/2017 JUAN FRANCISCO VEGA MD Ot Z79.84 [facility] (CURRENT) USE OF ORAL HYPOGLYC 09/13/2017 JUAN FRANCISCO VEGA MD Ot Z86.711 PERSONAL HISTORY OF PULMONARY EMBOLISM 09/13/2017 JUAN FRANCISCO VEGA MD Ot Z86.718 PERSONAL HISTORY OF OTHER VENOUS THROMBO 09/13/2017 JUAN FRANCISCO VEGA MD Ot Z87.19 PERSONAL HISTORY OF OTHER DISEASES OF TH 09/13/2017 JUAN FRANCISCO VEGA MD Ot Z95.5 PRESENCE OF CORONARY ANGIOPLASTY IMPLANT 09/13/2017 JUAN FRANCISCO VEGA MD Ot Z97.8 PRESENCE OF OTHER SPECIFIED DEVICES [...] DSOUZA MD Ot 414.01 CORONARY ATHEROSCLEROSIS OF [place] CORON 11/22/2017 LEANNA DSOUZA MD Ot 427.31 [...] JULIAN MARTIN DO Ot R06.00 DYSPNEA, UNSPECIFIED 11/29/2017 LEANNA DSOUZA MD Ot D64.9 ANEMIA, UNSPECIFIED 11/29/2017 LEANNA DSOUZA MD Ot E03.9 HYPOTHYROIDISM, UNSPECIFIED 11/29/2017 LEANNA DSOUZA MD Ot E11.9 TYPE 2 DIABETES MELLITUS WITHOUT COMPLIC 11/29/2017 LEANNA DSOUZA MD Ot E78.5 HYPERLIPIDEMIA, UNSPECIFIED 11/29/2017 LEANNA DSOUZA MD Ot F41.9 ANXIETY DISORDER, UNSPECIFIED 11/29/2017 LEANNA DSOUZA MD Ot I10 ESSENTIAL (PRIMARY) HYPERTENSION 11/29/2017 LEANNA DSOUZA MD Ot I25.10 ATHSCL HEART DISEASE OF [place] CORONARY 11/29/2017 LEANNA DSOUZA MD Ot I48.91 UNSPECIFIED ATRIAL FIBRILLATION 11/29/2017 LEANNA DSOUZA MD Ot 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 11/29/2017 LEANNA DSOUZA MD Ot J44.9 CHRONIC OBSTRUCTIVE PULMONARY DISEASE, U 11/29/2017 LEANNA DSOUZA MD Ot R00.0 TACHYCARDIA, UNSPECIFIED 11/29/2017 LEANNA DSOUZA MD Ot R91.1 SOLITARY PULMONARY NODULE 11/29/2017 LEANNA DSOUZA MD Ot Z86.718 PERSONAL HISTORY OF OTHER VENOUS THROMBO 11/29/2017 LEANNA DSOUZA MD Ot Z88.1 ALLERGY STATUS TO OTHER ANTIBIOTIC AGENT 11/29/2017 LEANNA DSOUZA MD Ot Z88.8 ALLERGY STATUS TO OT DRUG/MEDS/BIOL SUB 11/29/2017 LEANNA DSOUZA MD Ot Z95.5 PRESENCE OF CORONARY ANGIOPLASTY IMPLANT 11/29/2017 LEANNA DSOUZA MD Ot D64.9 ANEMIA, UNSPECIFIED 11/29/2017 LEANNA DSOUZA MD Ot E03.9 HYPOTHYROIDISM, UNSPECIFIED 11/29/2017 LEANNA DSOUZA MD Ot E11.9 TYPE 2 DIABETES MELLITUS WITHOUT COMPLIC 11/29/2017 LEANNA DSOUZA MD Ot E78.5 HYPERLIPIDEMIA, UNSPECIFIED 11/29/2017 LEANNA DSOUZA MD Ot F41.9 ANXIETY DISORDER, UNSPECIFIED 11/29/2017 LEANNA DSOUZA MD Ot I10 ESSENTIAL (PRIMARY) HYPERTENSION 11/29/2017 LEANNA DSOUZA MD Ot I25.10 ATHSCL HEART DISEASE OF [place] CORONARY 11/29/2017 LEANNA DSOUZA MD Ot I48.91 UNSPECIFIED ATRIAL FIBRILLATION 11/29/2017 LEANNA DSOUZA MD Ot I65.23 OCCLUSION AND STENOSIS OF BILATERAL [place] 11/29/2017 LEANNA DSOUZA MD, Ot J44.9 CHRONIC OBSTRUCTIVE PULMONARY DISEASE, U 11/29/2017 LEANNA DSOUZA MD Ot R00.0 TACHYCARDIA, UNSPECIFIED 11/29/2017 LEANNA DSOUZA MD Ot R91.1 SOLITARY PULMONARY NODULE 11/29/2017 LEANNA DSOUZA MD Ot Z86.718 PERSONAL HISTORY OF OTHER VENOUS THROMBO 11/29/2017 LEANNA DSOUZA MD Ot Z88.1 ALLERGY STATUS TO OTHER ANTIBIOTIC AGENT 11/29/2017 LEANNA DSOUZA MD Ot Z88.8 ALLERGY STATUS TO OTH DRUG/MEDS/BIOL SUB 11/29/2017 LEANNA DSOUZA MD Ot Z95.5 PRESENCE OF CORONARY ANGIOPLASTY IMPLANT 12/04/2017 LEANNA DSOUZA MD Ot D64.9 ANEMIA, UNSPECIFIED 12/04/2017 LEANNA DSOUZA MD Ot E03.9 HYPOTHYROIDISM, UNSPECIFIED 12/04/2017 LEANNA DSOUZA MD Ot E11.9 TYPE 2 DIABETES MELLITUS WITHOUT COMPLIC 12/04/2017 LEANNA DSOUZA MD Ot E78.5 HYPERLIPIDEMIA, UNSPECIFIED 12/04/2017 LEANNA DSOUZA MD Ot F41.9 ANXIETY DISORDER, UNSPECIFIED 12/04/2017 LEANNA DSOUZA MD Ot I10 ESSENTIAL (PRIMARY) HYPERTENSION 12/04/2017 LEANNA DSOUZA MD Ot I25.10 ATHSCL HEART DISEASE OF [place] CORONARY 12/04/2017 LEANNA DSOUZA MD Ot I48.91 UNSPECIFIED ATRIAL FIBRILLATION 12/04/2017 LEANNA DSOUZA MD Ot 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 12/04/2017 LEANNA DSOUZA MD Ot J44.9 CHRONIC OBSTRUCTIVE PULMONARY DISEASE, U 12/04/2017 LEANNA DSOUZA MD Ot R00.0 TACHYCARDIA, UNSPECIFIED 12/04/2017 LEANNA DSOUZA MD Ot R91.1 SOLITARY PULMONARY NODULE 12/04/2017 LEANNA DSOUZA MD Ot Z86.718 PERSONAL HISTORY OF OTHER VENOUS THROMBO 12/04/2017 LEANNA DSOUZA MD Ot Z88.1 ALLERGY STATUS TO OTHER ANTIBIOTIC AGENT 12/04/2017 LEANNA DSOUZA MD Ot Z88.8 ALLERGY STATUS TO OTH DRUG/MEDS/BIOL SUB 12/04/2017 LEANNA DSOUZA MD Ot Z95.5 PRESENCE OF CORONARY ANGIOPLASTY IMPLANT 12/04/2017 LEANNA DSOUZA MD Ot D64.9 ANEMIA, UNSPECIFIED 12/04/2017 LEANNA DSOUZA MD Ot E03.9 HYPOTHYROIDISM, UNSPECIFIED 12/04/2017 LEANNA DSOUZA MD Ot E11.9 TYPE 2 DIABETES MELLITUS WITHOUT COMPLIC 12/04/2017 LEANNA DSOUZA MD Ot E78.5 HYPERLIPIDEMIA, UNSPECIFIED 12/04/2017 LEANNA DSOUZA MD Ot F41.9 ANXIETY DISORDER, UNSPECIFIED 12/04/2017 LEANNA DSOUZA MD Ot I10 ESSENTIAL (PRIMARY) HYPERTENSION 12/04/2017 LEANNA DSOUZA MD Ot I25.10 ATHSCL HEART DISEASE OF [place] CORONARY 12/04/2017 LEANNA DSOUZA MD Ot I48.91 UNSPECIFIED ATRIAL FIBRILLATION 12/04/2017 LEANNA DSOUZA MD Ot 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 12/04/2017 LEANNA DSOUZA MD Ot J44.9 CHRONIC OBSTRUCTIVE PULMONARY DISEASE, U 12/04/2017 LEANNA DSOUZA MD Ot R00.0 TACHYCARDIA, UNSPECIFIED 12/04/2017 LEANNA DSOUZA MD Ot R91.1 SOLITARY PULMONARY NODULE 12/04/2017 LEANNA DSOUZA MD Ot Z86.718 PERSONAL HISTORY OF OTHER VENOUS THROMBO 12/04/2017 LEANNA DSOUZA MD Ot Z88.1 ALLERGY STATUS TO OTHER ANTIBIOTIC AGENT 12/04/2017 LEANNA DSOUZA MD Ot Z88.8 ALLERGY STATUS TO OTH DRUG/MEDS/BIOL SUB 12/04/2017 LEANNA DSOUZA MD Ot Z95.5 PRESENCE OF CORONARY ANGIOPLASTY IMPLANT 12/05/2017 LEANNA DSOUZA MD Ot D64.9 ANEMIA, UNSPECIFIED 12/05/2017 LEANNA DSOUZA MD Ot E03.9 HYPOTHYROIDISM, UNSPECIFIED 12/05/2017 LEANNA DSOUZA MD Ot E11.9 TYPE 2 DIABETES MELLITUS WITHOUT COMPLIC 12/05/2017 LEANNA DSOUZA MD Ot E78.5 HYPERLIPIDEMIA, UNSPECIFIED 12/05/2017 LEANNA DSOUZA MD Ot F41.9 ANXIETY DISORDER, UNSPECIFIED 12/05/2017 LEANNA DSOUZA MD Ot I10 ESSENTIAL (PRIMARY) HYPERTENSION 12/05/2017 LEANNA DSOUZA MD Ot I25.10 ATHSCL HEART DISEASE OF [place] CORONARY 12/05/2017 LEANNA DSOUZA MD Ot I48.91 UNSPECIFIED ATRIAL FIBRILLATION 12/05/2017 LEANNA DSOUZA MD Ot 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 12/05/2017 LEANNA DSOUZA MD, Ot J44.9 CHRONIC OBSTRUCTIVE PULMONARY DISEASE, U 12/05/2017 LEANNA DSOUZA MD Ot R00.0 TACHYCARDIA, UNSPECIFIED 12/05/2017 LEANNA DSOUZA MD, Ot R91.1 SOLITARY PULMONARY NODULE 12/05/2017 LEANNA DSOUZA MD, Ot Z86.718 PERSONAL HISTORY OF OTHER VENOUS THROMBO 12/05/2017 LEANNA DSOUZA MD, Ot Z88.1 ALLERGY STATUS TO OTHER ANTIBIOTIC AGENT 12/05/2017 LEANNA DSOUZA MD, Ot Z88.8 ALLERGY STATUS TO OTH DRUG/MEDS/BIOL SUB 12/05/2017 LEANNA DSOUZA MD, Ot Z95.5 PRESENCE OF CORONARY ANGIOPLASTY IMPLANT 12/19/2017 ODELL DOMINGUEZ Ot F41.9 ANXIETY DISORDER, UNSPECIFIED 12/19/2017 ODELL DOMINGUEZ Ot I08.1 RHEUMATIC DISORDERS OF BOTH MITRAL AND T 12/19/2017 ODELL DOMINGUEZ Ot I25.10 ATHSCL HEART DISEASE OF [place] CORONARY 12/19/2017 ODELL DOMINGUEZ Ot I48.0 PAROXYSMAL ATRIAL FIBRILLATION 12/19/2017 ODELL DOMINGUEZ Ot J45.909 UNSPECIFIED ASTHMA, UNCOMPLICATED 12/19/2017 ODELL DOMINGUEZ Ot R06.02 SHORTNESS OF BREATH 12/21/2017 JUAN FRANCISCO VEGA MD Ot D50.9 IRON DEFICIENCY ANEMIA, UNSPECIFIED 12/26/2017 ODELL DOMINGUEZ Ot F41.9 ANXIETY DISORDER, UNSPECIFIED 12/26/2017 ODELL DOMINGUEZ Ot I08.1 RHEUMATIC DISORDERS OF BOTH [place] AND T 12/26/2017 ODELL DOMINGUEZ Ot I25.10 ATHSCL HEART DISEASE OF [place] CORONARY 12/26/2017 ODELL DOMINGUEZ Ot I48.0 PAROXYSMAL ATRIAL FIBRILLATION 12/26/2017 ODELL DOMINGUEZ Ot J45.909 UNSPECIFIED ASTHMA, UNCOMPLICATED 12/26/2017 ODELL DOMINGUEZ Ot R06.02 SHORTNESS OF BREATH 02/01/2018 Ot 473.9 CHRONIC SINUSITIS NOS 02/01/2018 Ot 611.72 LUMP OR MASS IN BREAST 02/01/2018 Ot 784.2 SWELLING IN HEAD NECK 02/01/2018 Ot 786.6 CHEST SWELLING/MASS/LUMP 02/01/2018 LEANNA DSOUZA MD Ot 272.4 HYPERLIPIDEMIA NEC/NOS 02/01/2018 LEANNA DSOUZA MD Ot 397.0 TRICUSPID VALVE DISEASE 02/01/2018 LEANNA DSOUZA MD Ot 414.00 CORON ATHEROSCLER NOS TYPE VESSEL, NATIV 02/01/2018 LEANNA DSOUZA MD Ot 424.0 MITRAL VALVE DISORDER 02/01/2018 LEANNA DSOUZA MD Ot 427.31 ATRIAL FIBRILLATION 02/01/2018 LEANNA DSOUZA MD Ot 414.01 CORONARY ATHEROSCLEROSIS OF [place] CORON 02/01/2018 LEANNA DSOUZA MD Ot 427.31 ATRIAL FIBRILLATION 02/01/2018 LEANNA DSOUZA MD Ot 401.9 HYPERTENSION NOS 02/01/2018 LEANNA DSOUZA MD Ot 414.00 CORON ATHEROSCLER NOS TYPE VESSEL, NATIV 02/01/2018 LEANNA DSOUZA MD Ot 786.50 CHEST PAIN NOS 02/01/2018 LEANNA DSOUZA MD Ot V12.51 HX-VENOUS THROMBOSIS EMBOLISM 02/01/2018 JULIAN MARTIN DO Ot 300.00 ANXIETY STATE NOS 02/01/2018 JULIAN MARTIN DO Ot 493.90 ASTHMA, UNSPECIFIED 02/01/2018 JULIAN MARTIN DO Ot 786.09 RESPIRATORY ABNORM NEC 02/01/2018 JULIAN MARTIN DO Ot E66.9 OBESITY, UNSPECIFIED 02/01/2018 JULIAN MARTIN DO Ot J45.909 UNSPECIFIED ASTHMA, UNCOMPLICATED 02/01/2018 JULIAN MARTIN DO Ot R06.00 DYSPNEA, UNSPECIFIED 02/01/2018 ODELL DOMINGUEZ Ot F41.9 ANXIETY DISORDER, UNSPECIFIED 02/01/2018 ODELL DOMINGUEZ Ot I08.1 RHEUMATIC DISORDERS OF BOTH MITRAL AND T 02/01/2018 ODELL DOMINGUEZ Ot I25.10 ATHSCL HEART DISEASE OF [place] CORONARY 02/01/2018 ODELL DOMINGUEZ Ot I48.0 PAROXYSMAL ATRIAL FIBRILLATION 02/01/2018 ODELL DOMINGUEZ Ot J45.909 UNSPECIFIED ASTHMA, UNCOMPLICATED 02/01/2018 ODELL DOMINGUEZ Ot R06.02 SHORTNESS OF BREATH 02/02/2018 YANET LUCIO DO Ot E03.9 HYPOTHYROIDISM, UNSPECIFIED 02/02/2018 NAVEED ALLEN YANET Ot E11.9 TYPE 2 DIABETES MELLITUS WITHOUT COMPLIC 02/02/2018 NAVEED ALLEN YANET Ot E78.00 PURE HYPERCHOLESTEROLEMIA, UNSPECIFIED 02/02/2018 NAVEED ALLEN YANET Ot F41.9 ANXIETY DISORDER, UNSPECIFIED 02/02/2018 NAVEED ALLEN YANET Ot I10 ESSENTIAL (PRIMARY) HYPERTENSION 02/02/2018 NAVEED ALLEN YANET Ot I25.10 ATHSCL HEART DISEASE OF [place] CORONARY 02/02/2018 EMMA LUCIO DOI Ot I48.2 CHRONIC ATRIAL FIBRILLATION 02/02/2018 EMMA LUCIO DOI Ot J44.9 CHRONIC OBSTRUCTIVE PULMONARY DISEASE, U 02/02/2018 EMMA LUCIO DOI Ot J45.20 MILD INTERMITTENT ASTHMA, UNCOMPLICATED 02/02/2018 EMMA LUCIO DOI Ot K21.0 GASTRO-ESOPHAGEAL REFLUX DISEASE WITH ES 02/02/2018 EMMA LUCIO DOI Ot K58.9 IRRITABLE BOWEL SYNDROME WITHOUT DIARRHE 02/02/2018 EMMA LUCIO DOI Ot M06.9 RHEUMATOID ARTHRITIS, UNSPECIFIED 02/02/2018 EMMA LUCIO DOI Ot R07.9 CHEST PAIN, UNSPECIFIED 02/02/2018 YANET LUCIO DO Ot 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 02/02/2018 YANET LUCIO DO Ot Z86.711 PERSONAL HISTORY OF PULMONARY EMBOLISM 02/02/2018 YANET LUCIO DO Ot Z86.718 PERSONAL HISTORY OF OTHER VENOUS THROMBO 02/02/2018 YANET LUCIO DO Ot Z95.5 PRESENCE OF CORONARY ANGIOPLASTY IMPLANT 02/02/2018 EMMA LUCIO DOI Ot E03.9 HYPOTHYROIDISM, UNSPECIFIED 02/02/2018 EMMA LUCIO DOI Ot E11.9 TYPE 2 DIABETES MELLITUS WITHOUT COMPLIC 02/02/2018 YANET LUCIO DO Ot E78.00 PURE HYPERCHOLESTEROLEMIA, UNSPECIFIED 02/02/2018 YANET LUCIO DO Ot F41.9 ANXIETY DISORDER, UNSPECIFIED 02/02/2018 YANET LUCIO DO Ot I10 ESSENTIAL (PRIMARY) HYPERTENSION 02/02/2018 YANET LUCIO DO Ot I25.10 ATHSCL HEART DISEASE OF [place] CORONARY 02/02/2018 YANET LUCIO DO Ot I48.2 CHRONIC ATRIAL FIBRILLATION 02/02/2018 YANET LUCIO DO Ot J44.9 CHRONIC OBSTRUCTIVE PULMONARY DISEASE, U 02/02/2018 YANET LUCIO DO Ot J45.20 MILD INTERMITTENT ASTHMA, UNCOMPLICATED 02/02/2018 YANET LUCIO DO Ot K21.0 GASTRO-ESOPHAGEAL REFLUX DISEASE WITH ES 02/02/2018 YANET LUCIO DO Ot K58.9 IRRITABLE BOWEL SYNDROME WITHOUT DIARRHE 02/02/2018 YNAET LUCIO DO Ot M06.9 RHEUMATOID ARTHRITIS, UNSPECIFIED 02/02/2018 YANET LUCIO DO Ot R07.9 CHEST PAIN, UNSPECIFIED 02/02/2018 YANET LUCIO DO Ot 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 02/02/2018 YANET LUCIO DO Ot Z86.711 PERSONAL HISTORY OF PULMONARY EMBOLISM 02/02/2018 YANET LUCIO DO Ot Z86.718 PERSONAL HISTORY OF OTHER VENOUS THROMBO 02/02/2018 YANET LUCIO DO Ot Z95.5 PRESENCE OF CORONARY ANGIOPLASTY IMPLANT 03/18/2018 ZENAIDA REINA, ROSALIO Rogers Ot E03.9 HYPOTHYROIDISM, UNSPECIFIED 03/18/2018 ROSALIO ESTEVEZ MD Ot E11.9 TYPE 2 DIABETES MELLITUS WITHOUT COMPLIC 03/18/2018 ROSALIO ESTEVEZ MD Ot E78.00 PURE HYPERCHOLESTEROLEMIA, UNSPECIFIED 03/18/2018 ROSALIO ESTEVEZ MD Ot F41.9 ANXIETY DISORDER, UNSPECIFIED 03/18/2018 ROSALIO ESTEVEZ MD Ot I10 ESSENTIAL (PRIMARY) HYPERTENSION 03/18/2018 ROSALIO ESTEVEZ MD Ot I16.0 HYPERTENSIVE URGENCY 03/18/2018 ROSALIO ESTEVEZ MD Ot I25.10 ATHSCL HEART DISEASE OF [place] CORONARY 03/18/2018 ROSALIO ESTEVEZ MD, Ot I48.2 CHRONIC ATRIAL FIBRILLATION 03/18/2018 ROSALIO ESTEVEZ MD, Ot J44.9 CHRONIC OBSTRUCTIVE PULMONARY DISEASE, U 03/18/2018 ROSALIO ESTEVEZ MD, Ot K21.9 GASTRO-ESOPHAGEAL REFLUX DISEASE WITHOUT 03/18/2018 ROSALIO ESTEVEZ MD, Ot R51 HEADACHE 03/18/2018 ROSALIO ESTEVEZ MD, Ot 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 03/18/2018 ROSALIO ESTEVEZ MD, Ot Z79.51 [facility] (CURRENT) USE OF INHALED STERO 03/18/2018 ROSALIO ESTEVEZ MD, Ot 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 03/18/2018 ROSALIO ESTEVEZ MD, Ot Z82.49 FAMILY HX OF ISCHEM HEART DIS AND OTH DI 03/18/2018 ROSALIO ESTEVEZ MD, Ot Z86.718 PERSONAL HISTORY OF OTHER VENOUS THROMBO 03/18/2018 ROSALIO ESTEVEZ MD, Ot Z87.19 PERSONAL HISTORY OF OTHER DISEASES OF TH 03/18/2018 ROSALIO ESTEVEZ MD, Ot Z88.0 ALLERGY STATUS TO PENICILLIN 03/18/2018 ROSALIO ESTEVEZ MD, Ot Z88.1 ALLERGY STATUS TO OTHER ANTIBIOTIC AGENT 03/18/2018 ROSALIO ESTEVEZ MD, Ot Z88.8 ALLERGY STATUS TO OT DRUG/MEDS/BIOL SUB 03/18/2018 ROSALIO ESTEVEZ MD, Ot Z90.710 ACQUIRED ABSENCE OF BOTH CERVIX AND UTER 03/18/2018 ROSALIO ESTEVEZ MD, Ot Z90.89 ACQUIRED ABSENCE OF OTHER ORGANS 03/18/2018 ROSALIO ESTEVEZ MD, Ot Z95.5 PRESENCE OF CORONARY ANGIOPLASTY IMPLANT 03/19/2018 ROSALIO ESTEVEZ MD, Ot E03.9 HYPOTHYROIDISM, UNSPECIFIED 03/19/2018 ROSALIO ESTEVEZ MD, Ot E11.9 TYPE 2 DIABETES MELLITUS WITHOUT COMPLIC 03/19/2018 ROSALIO ESTEVEZ MD, Ot E78.00 PURE HYPERCHOLESTEROLEMIA, UNSPECIFIED 03/19/2018 ROSALIO ESTEVEZ MD, Ot F41.9 ANXIETY DISORDER, UNSPECIFIED 03/19/2018 ROSALIO ESTEVEZ MD, Ot I10 ESSENTIAL (PRIMARY) HYPERTENSION 03/19/2018 ROSALIO ESTEVEZ MD, Ot I16.0 HYPERTENSIVE URGENCY 03/19/2018 ROSALIO ESTEVEZ MD, Ot I25.10 ATHSCL HEART DISEASE OF [place] CORONARY 03/19/2018 ROSALIO ESTEVEZ MD, Ot I48.2 CHRONIC ATRIAL FIBRILLATION 03/19/2018 ROSALIO ESTEVEZ MD, Ot J44.9 CHRONIC OBSTRUCTIVE PULMONARY DISEASE, U 03/19/2018 ROSALIO ESTEVEZ MD, Ot K21.9 GASTRO-ESOPHAGEAL REFLUX DISEASE WITHOUT 03/19/2018 ROSALIO ESTEVEZ MD, Ot R51 HEADACHE 03/19/2018 ROSALIO ESTEVEZ MD, Ot Z79.01 [facility] (CURRENT) USE OF 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 03/19/2018 ROSALIO ESTEVEZ MD, Ot Z79.51 [facility] (CURRENT) USE OF INHALED STERO 03/19/2018 ROSALIO ESTEVEZ MD, Ot 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 03/19/2018 ROSALIO ESTEVEZ MD, Ot Z82.49 FAMILY HX OF ISCHEM HEART DIS AND OTH DI 03/19/2018 ROSALIO ESTEVEZ MD, Ot Z86.718 PERSONAL HISTORY OF OTHER VENOUS THROMBO 03/19/2018 ROSALIO ESTEVEZ MD, Ot Z87.19 PERSONAL HISTORY OF OTHER DISEASES OF TH 03/19/2018 ROSALIO ESTEVEZ MD, Ot Z88.0 ALLERGY STATUS TO PENICILLIN 03/19/2018 ROSALIO ESTEVEZ MD, Ot Z88.1 ALLERGY STATUS TO OTHER ANTIBIOTIC AGENT 03/19/2018 ROSALIO ESTEVEZ MD, Ot Z88.8 ALLERGY STATUS TO OT DRUG/MEDS/BIOL SUB 03/19/2018 ROSALIO ESTEVEZ MD, Ot Z90.710 ACQUIRED ABSENCE OF BOTH CERVIX AND UTER 03/19/2018 ROSALIO ESTEVEZ MD, Ot Z90.89 ACQUIRED ABSENCE OF OTHER ORGANS 03/19/2018 ROSALIO ESTEVEZ MD Ot Z95.5 PRESENCE OF CORONARY ANGIOPLASTY IMPLANT 05/07/2018 ALFREDITO REINA, ASTRID Dennison Ot I48.0 PAROXYSMAL ATRIAL FIBRILLATION 06/22/2018 ROSALIO ESTEVEZ MD Ot E03.9 HYPOTHYROIDISM, UNSPECIFIED 06/22/2018 ROSALIO ESTEVEZ MD Ot E11.9 TYPE 2 DIABETES MELLITUS WITHOUT COMPLIC 06/22/2018 ROSALIO ESTEVEZ MD Ot E78.00 PURE HYPERCHOLESTEROLEMIA, UNSPECIFIED 06/22/2018 ROSALIO ESTEVEZ MD Ot F41.9 ANXIETY DISORDER, UNSPECIFIED 06/22/2018 ROSALIO ESTEVEZ MD Ot I10 ESSENTIAL (PRIMARY) HYPERTENSION 06/22/2018 ROSALIO ESTEVEZ MD Ot I25.10 ATHSCL HEART DISEASE OF [place] CORONARY 06/22/2018 ROSALIO ESTEVEZ MD Ot I48.91 UNSPECIFIED ATRIAL FIBRILLATION 06/22/2018 ROSALIO ESTEVEZ MD Ot J44.9 CHRONIC OBSTRUCTIVE PULMONARY DISEASE, U 06/22/2018 ROSALIO ESTEVEZ MD, Ot K21.9 GASTRO-ESOPHAGEAL REFLUX DISEASE WITHOUT 06/22/2018 ROSALIO ESTEVEZ MD, Ot M06.9 RHEUMATOID ARTHRITIS, UNSPECIFIED 06/22/2018 ROSALIO SETEVEZ MD Ot R07.89 OTHER CHEST PAIN 06/22/2018 ROSALIO ESTEVEZ MD Ot 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 06/22/2018 ROSALIO ESTEVEZ MD Ot Z79.4 [employer]ARNING [employer] RO[employer] TE[employer]ER (CURRENT) USE OF INSULIN 06/22/2018 ROSALIO ESTEVEZ MD Ot Z79.51 [employer]ARNING SU[employer] ROOM TE[employer]ER (CURRENT) USE OF INHALED STERO 06/22/2018 ROSALIO ESTEVEZ MD Ot Z82.49 FAMILY HX OF ISCHEM HEART DIS AND OTH DI 06/22/2018 ROSALIO ESTEVEZ MD, Ot Z86.711 PERSONAL HISTORY OF PULMONARY EMBOLISM 06/22/2018 ROSALIO ESTEVEZ MD, Ot Z86.718 PERSONAL HISTORY OF OTHER VENOUS THROMBO 06/22/2018 ROSALIO ESTEVEZ MD, Ot Z87.19 PERSONAL HISTORY OF OTHER DISEASES OF TH 06/22/2018 ROSALIO ESTEVEZ MD, Ot Z88.0 ALLERGY STATUS TO PENICILLIN 06/22/2018 ROSALIO ESTEVEZ MD, Ot Z88.5 ALLERGY STATUS TO NARCOTIC AGENT STATUS 06/22/2018 ROSALIO ESTEVEZ MD, Ot Z88.8 ALLERGY STATUS TO OTH DRUG/MEDS/BIOL SUB 06/22/2018 ROSALIO ESTEVEZ MD Ot Z90.710 ACQUIRED ABSENCE OF BOTH CERVIX AND UTER 06/22/2018 ROSALIO ESTEVEZ MD, Ot Z90.89 ACQUIRED ABSENCE OF OTHER ORGANS 06/22/2018 ROSALIO ESTEVEZ MD, Ot Z95.5 PRESENCE OF CORONARY ANGIOPLASTY IMPLANT 06/25/2018 ROSALIO ESTEVEZ MD, Ot E03.9 HYPOTHYROIDISM, UNSPECIFIED 06/25/2018 ROSALIO ESTEVEZ MD Ot E11.9 TYPE 2 DIABETES MELLITUS WITHOUT COMPLIC 06/25/2018 ROSALIO ESTEVEZ MD Ot E78.00 PURE HYPERCHOLESTEROLEMIA, UNSPECIFIED 06/25/2018 ROSALIO ESTEVEZ MD, Ot F41.9 ANXIETY DISORDER, UNSPECIFIED 06/25/2018 ROSALIO ESTEVEZ MD, Ot I10 ESSENTIAL (PRIMARY) HYPERTENSION 06/25/2018 ROSALIO ESTEVEZ MD, Ot I25.10 ATHSCL HEART DISEASE OF [place] CORONARY 06/25/2018 ROSALIO ESTEVEZ MD Ot I48.91 UNSPECIFIED ATRIAL FIBRILLATION 06/25/2018 ROSALIO ESTEVEZ MD, Ot J44.9 CHRONIC OBSTRUCTIVE PULMONARY DISEASE, U 06/25/2018 ROSALIO ESTEVEZ MD, Ot K21.9 GASTRO-ESOPHAGEAL REFLUX DISEASE WITHOUT 06/25/2018 ROSALIO ESTEVEZ MD, Ot M06.9 RHEUMATOID ARTHRITIS, UNSPECIFIED 06/25/2018 ROSALIO ESTEVEZ MD Ot R07.89 OTHER CHEST PAIN 06/25/2018 ROSALIO ESTEVEZ MD, Ot Z79.01 [facility] (CURRENT) USE OF 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 06/25/2018 ROSALIO ESTEVEZ MD Ot Z79.4 [facility] (CURRENT) USE OF INSULIN 06/25/2018 ROSALIO ESTEVEZ MD Ot Z79.51 [employer]ARNING [employer]ER (CURRENT) USE OF INHALED STERO 06/25/2018 ROSALIO ESTEVEZ MD, Ot Z82.49 FAMILY HX OF ISCHEM HEART DIS AND OTH DI 06/25/2018 ROSALIO ESTEVEZ MD, Ot Z86.711 PERSONAL HISTORY OF PULMONARY EMBOLISM 06/25/2018 ROSALIO ESTEVEZ MD, Ot Z86.718 PERSONAL HISTORY OF OTHER VENOUS THROMBO 06/25/2018 ROSALIO ESTEVEZ MD, Ot Z87.19 PERSONAL HISTORY OF OTHER DISEASES OF TH 06/25/2018 ROSALIO ESTEVEZ MD, Ot Z88.0 ALLERGY STATUS TO PENICILLIN 06/25/2018 ROSALIO ESTEVEZ MD, Ot Z88.5 ALLERGY STATUS TO NARCOTIC AGENT STATUS 06/25/2018 ROSALIO ESTEVEZ MD, Ot Z88.8 ALLERGY STATUS TO OT DRUG/MEDS/BIOL SUB 06/25/2018 ROSALIO ESTEVEZ MD, Ot Z90.710 ACQUIRED ABSENCE OF BOTH CERVIX AND UTER 06/25/2018 ROSALIO ESTEVEZ MD, Ot Z90.89 ACQUIRED ABSENCE OF OTHER ORGANS 06/25/2018 ROSALIO ESTEVEZ MD, Ot Z95.5 PRESENCE OF CORONARY ANGIOPLASTY IMPLANT 10/11/2018 JULIET WEBER MD, Ot Z01.818 ENCOUNTER FOR OTHER PREPROCEDURAL EXAMIN 10/16/2018 JULIET WEBER MD, Ot D64.9 ANEMIA, UNSPECIFIED 10/16/2018 JULIET WEBER MD, Ot E11.9 TYPE 2 DIABETES MELLITUS WITHOUT COMPLIC 10/16/2018 JULIET WEBER MD, Ot E78.5 HYPERLIPIDEMIA, UNSPECIFIED 10/16/2018 JULIET WEBER MD, Ot E89.0 POSTPROCEDURAL HYPOTHYROIDISM 10/16/2018 JULIET WEBER MD, Ot F41.9 ANXIETY DISORDER, UNSPECIFIED 10/16/2018 JULIET WEBER MD, Ot I25.10 ATHSCL HEART DISEASE OF [place] CORONARY 10/16/2018 JULIET WEBER MD, Ot I48.91 UNSPECIFIED ATRIAL FIBRILLATION 10/16/2018 JULIET WEBER MD, Ot J44.9 CHRONIC OBSTRUCTIVE PULMONARY DISEASE, U 10/16/2018 JULIET WEBER MD, Ot K21.9 GASTRO-ESOPHAGEAL REFLUX DISEASE WITHOUT 10/16/2018 JULIET WEBER MD, Ot M06.9 RHEUMATOID ARTHRITIS, UNSPECIFIED 10/16/2018 JULIET WEBER MD, Ot M65.331 TRIGGER FINGER, RIGHT MIDDLE FINGER 10/16/2018 JULIET WEBER MD, Ot M65.341 TRIGGER FINGER, RIGHT RING FINGER 10/16/2018 JULIET WEBER MD, Ot M81.0 AGE-RELATED OSTEOPOROSIS W/O CURRENT PAT 10/16/2018 JULIET WEBER MD, Ot 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 10/16/2018 JULIET WEBER MD, Ot Z79.84 [facility] (CURRENT) USE OF ORAL HYPOGLYC 10/16/2018 JULIET WEBER MD, Ot 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 10/16/2018 JULIET WEBER MD, Ot Z86.711 PERSONAL HISTORY OF PULMONARY EMBOLISM 10/16/2018 JULIET WEBER MD, Ot Z86.718 PERSONAL HISTORY OF OTHER VENOUS THROMBO 10/16/2018 JULIET WEBER MD, Ot Z87.19 PERSONAL HISTORY OF OTHER DISEASES OF TH 10/16/2018 JULIET WEBER MD, Ot Z88.1 ALLERGY STATUS TO OTHER ANTIBIOTIC AGENT 10/16/2018 JULIET WEBER MD, Ot Z95.5 PRESENCE OF CORONARY ANGIOPLASTY IMPLANT 10/16/2018 JULIET WEBER MD, Ot Z96.653 PRESENCE OF ARTIFICIAL KNEE JOINT, BILAT 10/17/2018 JULIET WEBER MD, Ot D64.9 ANEMIA, UNSPECIFIED 10/17/2018 JULIET WEBER MD, Ot E11.9 TYPE 2 DIABETES MELLITUS WITHOUT COMPLIC 10/17/2018 JULIET WEBER MD, Ot E78.2 MIXED HYPERLIPIDEMIA 10/17/2018 JULIET WEBER MD, Ot E89.0 POSTPROCEDURAL HYPOTHYROIDISM 10/17/2018 JULIET WEBER MD, Ot F41.9 ANXIETY DISORDER, UNSPECIFIED 10/17/2018 JULIET WEBER MD, Ot I25.10 ATHSCL HEART DISEASE OF [place] CORONARY 10/17/2018 JULIET WEBER MD, Ot I48.0 PAROXYSMAL ATRIAL FIBRILLATION 10/17/2018 JULIET WEBER MD, Ot 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 10/17/2018 JULIET WEBER MD, Ot J44.9 CHRONIC OBSTRUCTIVE PULMONARY DISEASE, U 10/17/2018 JULIET WEBER MD, Ot K21.9 GASTRO-ESOPHAGEAL REFLUX DISEASE WITHOUT 10/17/2018 JULIET WEBER MD, Ot M06.9 RHEUMATOID ARTHRITIS, UNSPECIFIED 10/17/2018 JULIET WEBER MD, Ot M65.331 TRIGGER FINGER, RIGHT MIDDLE FINGER 10/17/2018 JULIET WEBER MD, Ot M65.341 TRIGGER FINGER, RIGHT RING FINGER 10/17/2018 JULIET WEBER MD, Ot M81.0 AGE-RELATED OSTEOPOROSIS W/O CURRENT PAT 10/17/2018 JULIET WEBER MD, Ot 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 10/17/2018 JULIET WEBER MD, Ot Z79.84 [facility] (CURRENT) USE OF ORAL HYPOGLYC 10/17/2018 JULIET WEBER MD, Ot 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 10/17/2018 JULIET WEBER MD, Ot Z86.711 PERSONAL HISTORY OF PULMONARY EMBOLISM 10/17/2018 JULIET WEBER MD, Ot Z86.718 PERSONAL HISTORY OF OTHER VENOUS THROMBO 10/17/2018 JULIET WEBER MD, Ot Z87.19 PERSONAL HISTORY OF OTHER DISEASES OF TH 10/17/2018 JULIET WEBER MD, Ot Z88.1 ALLERGY STATUS TO OTHER ANTIBIOTIC AGENT 10/17/2018 JULIET WEBER MD, Ot Z95.5 PRESENCE OF CORONARY ANGIOPLASTY IMPLANT 10/17/2018 JULIET WEBER MD, Ot Z96.653 PRESENCE OF ARTIFICIAL KNEE JOINT, BILAT 10/24/2018 JULIET WEBER MD, Ot D64.9 ANEMIA, UNSPECIFIED 10/24/2018 JULIET WEBER MD, Ot E11.9 TYPE 2 DIABETES MELLITUS WITHOUT COMPLIC 10/24/2018 JULIET WEBER MD, Ot E78.5 HYPERLIPIDEMIA, UNSPECIFIED 10/24/2018 JULIET WEBER MD, Ot E89.0 POSTPROCEDURAL HYPOTHYROIDISM 10/24/2018 JULIET WEBER MD, Ot F41.9 ANXIETY DISORDER, UNSPECIFIED 10/24/2018 JULIET WEBER MD, Ot I25.10 ATHSCL HEART DISEASE OF [place] CORONARY 10/24/2018 JULIET WEBER MD, Ot I48.91 UNSPECIFIED ATRIAL FIBRILLATION 10/24/2018 JULIET WEBER MD, Ot J44.9 CHRONIC OBSTRUCTIVE PULMONARY DISEASE, U 10/24/2018 JULIET WEBER MD, Ot K21.9 GASTRO-ESOPHAGEAL REFLUX DISEASE WITHOUT 10/24/2018 JULIET WEBER MD, Ot M06.9 RHEUMATOID ARTHRITIS, UNSPECIFIED 10/24/2018 JULIET WEBER MD, Ot M65.331 TRIGGER FINGER, RIGHT MIDDLE FINGER 10/24/2018 JULIET WEBER MD, Ot M65.341 TRIGGER FINGER, RIGHT RING FINGER 10/24/2018 JULIET WEBER MD, Ot M81.0 AGE-RELATED OSTEOPOROSIS W/O CURRENT PAT 10/24/2018 JULIET WEBER MD, Ot Z79.01 [facility] (CURRENT) USE OF 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 10/24/2018 JULIET WEBER MD, Ot 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 10/24/2018 JULIET WEBER MD, Ot 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 10/24/2018 JULIET WEBER MD, Ot Z86.711 PERSONAL HISTORY OF PULMONARY EMBOLISM 10/24/2018 JULIET WEBER MD, Ot Z86.718 PERSONAL HISTORY OF OTHER VENOUS THROMBO 10/24/2018 JULIET WEBER MD, Ot Z87.19 PERSONAL HISTORY OF OTHER DISEASES OF TH 10/24/2018 JULIET WEBER MD, Ot Z88.1 ALLERGY STATUS TO OTHER ANTIBIOTIC AGENT 10/24/2018 JULIET WEBER MD, Ot Z95.5 PRESENCE OF CORONARY ANGIOPLASTY IMPLANT 10/24/2018 JULIET WEBER MD, Ot Z96.653 PRESENCE OF ARTIFICIAL KNEE JOINT, BILAT Procedures Code Description Performed By Performed On 00.40 09/22/2011 00.45 09/22/2011 00.66 09/22/2011 36.07 09/22/2011 37.22 09/22/2011 88.53 09/22/2011 88.56 09/22/2011 45.16 ESOPHAGOGASTRODUODENOSCOPY [EGD] W/CLOSE 06/27/2012 48.24 ENDOSCOPIC BIOPSY OF RECTUM 06/27/2012 [id number] INSERT OF MONITOR DEV INTO CHEST SUBCU/F 09/10/2015 [id number] MONITOR CARDIAC ELECTR ACTIVITY, AMBULAT 09/10/2015 [id number] EXCISION OF ESOPHAGOGASTRIC JUNCTION, EN 10/19/2016 [id number] EXCISION OF STOMACH, PYLORUS, ENDO, DIAG 10/19/2016 [id number] EXCISION OF DUODENUM, ENDO, DIAGN 10/19/2016 Results Test Result Range Complete [...] Automated erythrocyte mean corpuscular hemoglobin concentration measurement (mass/volume) 32 g/dL 32-36 Automated erythrocyte distribution width ratio 16.2 % 10.0- 14.5 Automated blood platelet count (count/volume) 327 10*3/uL [...] Blood monocytes automated count (number/volume) 1.0 10*3 0.0- 1.0 Automated eosinophil count 0.2 10*3/uL 0.0-0.3 Automated [...] Serum or plasma aspartate aminotransferase measurement (enzymatic activity/volume) 18 U/L 5-34 Serum or plasma alanine aminotransferase measurement (enzymatic activity/volume) 18 U/L 0-55 Serum or plasma protein measurement (mass/volume) 6.6 g/dL 6.4-8.2 Serum or plasma albumin measurement (mass/volume) 3.9 g/dL 3.2-4.5 [id number] - 10/18/16 11:45 [id number] SPECIMEN AVAILABLE [facility] Serum or plasma troponin i.cardiac measurement (mass/volume) - 10/18/16 11:45 Serum or plasma troponin i.cardiac measurement (mass/volume) < ng/mL <0.30 THYROID STIMULATING HORMONE - 10/18/16 11:45 THYROID STIMULATING HORMONE 0.84 u[iU]/mL 0.35-4.94 Digoxin - 10/18/16 11:45 Digoxin 1.12 ng/mL 0.80-2.00 Serum or plasma troponin i.cardiac measurement (mass/volume) - 10/18/16 17:11 Serum or plasma troponin i.cardiac measurement (mass/volume) < ng/mL <0.30 Automated blood complete blood count (hemogram) [...] Automated erythrocyte mean corpuscular hemoglobin concentration measurement (mass/volume) 32 g/dL 32-36 Automated erythrocyte distribution width ratio 16.2 % 10.0- 14.5 Automated blood platelet count (count/volume) 292 10*3/uL [...] Serum or plasma aspartate aminotransferase measurement (enzymatic activity/volume) 10 U/L 5-34 Serum or plasma alanine aminotransferase measurement (enzymatic activity/volume) 15 U/L 0-55 Serum or plasma protein [...] Automated erythrocyte mean corpuscular hemoglobin concentration measurement (mass/volume) 32 g/dL 32-36 Automated erythrocyte distribution width ratio 16.0 % 10.0- 14.5 Automated blood platelet count (count/volume) 409 10*3/uL [...] Blood monocytes automated count (number/volume) 1.0 10*3 0.0- 1.0 Automated eosinophil count 0.2 10*3/uL 0.0-0.3 Automated blood basophil count (count/volume) 0.1 10*3/uL 0.0-0.1 Complete urinalysis with reflex to culture - 05/16/17 13:10 Urine color determination YELLOW NRG Urine clarity determination CLEAR NRG Urine pH measurement by test strip 5 5-9 Specific gravity of urine by test strip 1.015 1.016-1.022 Urine protein assay by test strip, semi-quantitative [...] sediment leukocyte count by microscopy (number/high power field) [HPF] NRG Bacteria detection in urine sediment [...] Serum or plasma aspartate aminotransferase measurement (enzymatic activity/volume) 17 U/L 5-34 Serum or plasma alanine aminotransferase measurement (enzymatic activity/volume) 21 U/L 0-55 Serum or plasma protein [...] Automated erythrocyte mean corpuscular hemoglobin concentration measurement (mass/volume) 32 g/dL 32-36 Automated erythrocyte distribution width ratio 15.7 % 10.0- 14.5 Automated blood platelet count (count/volume) 376 10*3/uL [...] Blood monocytes automated count (number/volume) 0.9 10*3 0.0- 1.0 Automated eosinophil count 0.5 10*3/uL 0.0-0.3 Automated [...] Serum or plasma aspartate aminotransferase measurement (enzymatic activity/volume) 11 U/L 5-34 Serum or plasma alanine aminotransferase measurement (enzymatic activity/volume) 17 U/L 0-55 Serum or plasma protein measurement (mass/volume) 6.7 g/dL 6.4-8.2 Serum or plasma albumin measurement (mass/volume) 4.0 g/dL 3.2-4.5 Magnesium - 06/01/17 01:55 Magnesium 1.6 mg/dL 1.8-2.4 Serum or plasma troponin i.cardiac measurement (mass/volume) - 06/01/17 01:55 Serum or plasma troponin i.cardiac measurement (mass/volume) < ng/mL <0.30 Serum or plasma C reactive protein measurement (mass/volume) - 06/01/17 01:55 Serum or plasma C reactive protein measurement (mass/volume) 0.40 mg/dL 0.00-0.50 Complete urinalysis with reflex to culture - 06/01/17 02:12 Urine color determination YELLOW NRG Urine clarity determination CLEAR NRG Urine pH measurement by test strip 5 5-9 Specific gravity of urine by test strip 1.010 1.016-1.022 Urine protein assay by test strip, semi-quantitative [...] sediment leukocyte count by microscopy (number/high power field) NONE NRG Bacteria detection in urine sediment [...] Automated erythrocyte mean corpuscular hemoglobin concentration measurement (mass/volume) 32 g/dL 32-36 Automated erythrocyte distribution width ratio 15.5 % 10.0- 14.5 Automated blood platelet count (count/volume) 353 10*3/uL [...] Blood monocytes automated count (number/volume) 0.6 10*3 0.0- 1.0 Automated eosinophil count 0.5 10*3/uL 0.0-0.3 Automated [...] Serum or plasma aspartate aminotransferase measurement (enzymatic activity/volume) 15 U/L 5-34 Serum or plasma alanine aminotransferase measurement (enzymatic activity/volume) 20 U/L 0-55 Serum or plasma protein measurement (mass/volume) 6.7 g/dL 6.4-8.2 Serum or plasma albumin measurement (mass/volume) 4.2 g/dL 3.2-4.5 Magnesium - 09/12/17 15:09 Magnesium 1.6 mg/dL 1.8-2.4 Serum or plasma troponin i.cardiac measurement (mass/volume) - 09/12/17 15:09 Serum or plasma troponin i.cardiac measurement (mass/volume) < ng/mL <0.30 Myoglobin, serum - 09/12/17 15:09 Myoglobin, [...] gravity of urine by test strip 1.005 1.016-1.022 Urine protein assay by test strip, semi-quantitative [...] sediment leukocyte count by microscopy (number/high power field) RARE NRG Bacteria detection in urine sediment [...] resistant Staphylococcus aureus (MRSA) screening culture - 09/12/17 20:12 Methicillin resistant Staphylococcus aureus (MRSA) screening culture NEG NRG Serum or plasma troponin i.cardiac measurement (mass/volume) - 09/12/17 22:20 Serum or plasma troponin i.cardiac measurement (mass/volume) < ng/mL <0.30 Automated blood complete blood count (hemogram) [...] Automated erythrocyte mean corpuscular hemoglobin concentration measurement (mass/volume) 32 g/dL 32-36 Automated erythrocyte distribution width ratio 15.5 % 10.0- 14.5 Automated blood platelet count (count/volume) 292 10*3/uL [...] Serum or plasma aspartate aminotransferase measurement (enzymatic activity/volume) 14 U/L 5-34 Serum or plasma alanine aminotransferase measurement (enzymatic activity/volume) 14 U/L 0-55 Serum or plasma protein measurement (mass/volume) 5.5 g/dL 6.4-8.2 Serum or plasma albumin measurement (mass/volume) 3.5 g/dL 3.2-4.5 Serum or plasma troponin i.cardiac measurement (mass/volume) - 09/13/17 03:25 Serum or plasma troponin i.cardiac measurement (mass/volume) < ng/mL <0.30 Lipid 1996 panel - 09/13/17 03:25 Serum or plasma triglyceride measurement (mass/volume) 80 mg/dL <150 Serum or plasma cholesterol measurement (mass/volume) 160 mg/dL < 200 Serum or plasma cholesterol in HDL measurement (mass/volume) 34 mg/dL 40-60 Cholesterol in LDL [mass/volume] in serum or plasma by direct assay 118 mg/dL 1-129 Serum or plasma cholesterol in VLDL measurement (mass/volume) 16 mg/dL 5-40 THYROID STIMULATING HORMONE - 09/13/17 03:25 THYROID STIMULATING HORMONE 1.09 u[iU]/mL 0.35-4.94 Digoxin - 09/13/17 03:25 Digoxin 0.81 ng/mL 0.80-2.00 Magnesium - 09/13/17 03:25 Magnesium 2.3 mg/dL 1.8-2.4 Automated blood complete blood count (hemogram) panel - 11/29/17 03:28 Blood leukocytes automated count (number/volume) 7.2 10*3/uL 4.3-11.0 Blood erythrocytes automated count (number/volume) 4.35 10*6/uL 4.35-5.85 Venous blood hemoglobin measurement (mass/volume) 10.3 g/dL 11.5-16.0 Blood hematocrit (volume fraction) 34 % 35-52 Automated erythrocyte mean corpuscular volume 78 [foz_us] 80-99 Automated erythrocyte mean corpuscular hemoglobin (mass per erythrocyte) 24 pg 25-34 Automated erythrocyte mean corpuscular hemoglobin concentration measurement (mass/volume) 30 g/dL 32-36 Automated erythrocyte distribution width ratio 15.8 % 10.0- 14.5 Automated blood platelet count (count/volume) 476 10*3/uL 130-400 Automated blood platelet mean volume measurement 10.2 [foz_us] 7.4-10.4 PT panel in platelet poor plasma by coagulation assay - 11/29/17 03:28 Prothrombin time (PT) in platelet poor plasma by coagulation assay 14.1 s 12.2-14.7 INR in platelet poor plasma or blood by coagulation assay 1.1 0.8-1.4 Activated partial thromboplastin time (aPTT) in platelet poor plasma bycoagulation assay - 11/29/17 03:28 Activated partial thromboplastin time (aPTT) in platelet poor plasma bycoagulation assay 28 s 24-35 Comprehensive metabolic panel - 11/29/17 03:28 Serum or plasma sodium measurement (moles/volume) 142 mmol/L 135-145 Serum or plasma potassium measurement (moles/volume) 4.1 mmol/L 3.6-5.0 Serum or plasma chloride measurement (moles/volume) 107 mmol/L 98-107 Carbon dioxide 24 mmol/L 21-32 Serum or plasma anion gap determination (moles/volume) 11 mmol/L 5-14 Serum or plasma urea nitrogen measurement (mass/volume) 12 mg/dL 7-18 Serum or plasma creatinine measurement (mass/volume) 0.67 mg/dL 0.60-1.30 Serum or plasma urea nitrogen/creatinine mass ratio 18 NRG Serum or plasma creatinine measurement with calculation of estimated glomerular filtration rate > NRG Serum or plasma glucose measurement (mass/volume) 123 mg/dL 70-105 Serum or plasma calcium measurement (mass/volume) 9.3 mg/dL 8.5-10.1 Serum or plasma total bilirubin measurement (mass/volume) 0.6 mg/dL 0.1-1.0 Serum or plasma alkaline phosphatase measurement (enzymatic activity/volume) 50 U/L 40-136 Serum or plasma aspartate aminotransferase measurement (enzymatic activity/volume) 12 U/L 5-34 Serum or plasma alanine aminotransferase measurement (enzymatic activity/volume) 15 U/L 0-55 Serum or plasma protein measurement (mass/volume) 5.9 g/dL 6.4-8.2 Serum or plasma albumin measurement (mass/volume) 3.7 g/dL 3.2-4.5 THYROID STIMULATING HORMONE - 11/29/17 03:28 THYROID STIMULATING HORMONE 1.15 u[iU]/mL 0.35-4.94 Digoxin - 11/29/17 03:28 Digoxin 1.39 ng/mL 0.80-2.00 Capillary blood glucose measurement by glucometer (mass/volume) - 11/29/17 21:26 Capillary blood glucose measurement by glucometer (mass/volume) 160 mg/dL 70-110 Complete blood count (CBC) with automated white blood cell (WBC) differential - 02/01/18 09:44 Blood leukocytes automated count (number/volume) 7.8 10*3/uL 4.3-11.0 Blood erythrocytes automated count (number/volume) 4.83 10*6/uL 4.35-5.85 Venous blood hemoglobin measurement (mass/volume) 12.9 g/dL 11.5-16.0 Blood hematocrit (volume fraction) 42 % 35-52 Automated erythrocyte mean corpuscular volume 86 [foz_us] 80-99 Automated erythrocyte mean corpuscular hemoglobin (mass per erythrocyte) 27 pg 25-34 Automated erythrocyte mean corpuscular hemoglobin concentration measurement (mass/volume) 31 g/dL 32-36 Automated erythrocyte distribution width ratio 23.2 % 10.0- 14.5 Automated blood platelet count (count/volume) 301 10*3/uL 130-400 Automated blood platelet mean volume measurement 10.4 [foz_us] 7.4-10.4 Automated blood neutrophils/100 leukocytes 70 % 42-75 Automated blood lymphocytes/100 leukocytes 15 % 12-44 Blood monocytes/100 leukocytes 10 % 0-12 Automated blood eosinophils/100 leukocytes 3 % 0-10 Automated blood basophils/100 leukocytes 1 % 0-10 Blood neutrophils automated count (number/volume) 5.5 10*3 1.8-7.8 Blood lymphocytes automated count (number/volume) 1.2 10*3 1.0-4.0 Blood monocytes automated count (number/volume) 0.8 10*3 0.0- 1.0 Automated eosinophil count 0.3 10*3/uL 0.0-0.3 Automated blood basophil count (count/volume) 0.1 10*3/uL 0.0-0.1 PT panel in platelet poor plasma by coagulation assay - 02/01/18 09:44 Prothrombin time (PT) in platelet poor plasma by coagulation assay 24.0 s 12.2-14.7 INR in platelet poor plasma or blood by coagulation assay 2.1 0.8-1.4 Activated partial thromboplastin time (aPTT) in platelet poor plasma bycoagulation assay - 02/01/18 09:44 Activated partial thromboplastin time (aPTT) in platelet poor plasma bycoagulation assay 36 s 24-35 Comprehensive metabolic panel - 02/01/18 09:44 Serum or plasma sodium measurement (moles/volume) 143 mmol/L 135-145 Serum or plasma potassium measurement (moles/volume) 4.0 mmol/L 3.6-5.0 Serum or plasma chloride measurement (moles/volume) 108 mmol/L 98-107 Carbon dioxide 26 mmol/L 21-32 Serum or plasma anion gap determination (moles/volume) 9 mmol/L 5-14 Serum or plasma urea nitrogen measurement (mass/volume) 19 mg/dL 7-18 Serum or plasma creatinine measurement (mass/volume) 0.97 mg/dL 0.60-1.30 Serum or plasma urea nitrogen/creatinine mass ratio 20 NRG Serum or plasma creatinine measurement with calculation of estimated glomerular filtration rate 56 NRG Serum or plasma glucose measurement (mass/volume) 153 mg/dL 70-105 Serum or plasma calcium measurement (mass/volume) 9.8 mg/dL 8.5-10.1 Serum or plasma total bilirubin measurement (mass/volume) 0.8 mg/dL 0.1-1.0 Serum or plasma alkaline phosphatase measurement (enzymatic activity/volume) 71 U/L 40-136 Serum or plasma aspartate aminotransferase measurement (enzymatic activity/volume) 17 U/L 5-34 Serum or plasma alanine aminotransferase measurement (enzymatic activity/volume) 22 U/L 0-55 Serum or plasma protein measurement (mass/volume) 6.6 g/dL 6.4-8.2 Serum or plasma albumin measurement (mass/volume) 4.4 g/dL 3.2-4.5 Magnesium - 02/01/18 09:44 Magnesium 1.9 mg/dL 1.8-2.4 Serum or plasma troponin i.cardiac measurement (mass/volume) - 02/01/18 09:44 Serum or plasma troponin i.cardiac measurement (mass/volume) < ng/mL <0.30 Myoglobin, serum - 02/01/18 09:44 Myoglobin, serum 91.6 ng/mL 10.0-92.0 THYROID STIMULATING HORMONE - 02/01/18 09:44 THYROID STIMULATING HORMONE 1.48 u[iU]/mL 0.35-4.94 Serum or plasma thyroxine (T4) free measurement (mass/volume) - 02/01/18 09:44 Serum or plasma thyroxine (T4) free measurement (mass/volume) 1.62 ng/dL 0.70-1.48 Serum or plasma lithium measurement (moles/volume) - 02/01/18 09:44 BNP level 155.8 pg/mL <100.0 Methicillin resistant Staphylococcus aureus (MRSA) screening culture - 02/01/18 15:42 MRSA SCREEN RESULT MRSA NOT ISOLATED NRG Serum or plasma troponin i.cardiac measurement (mass/volume) - 02/01/18 18:56 Serum or plasma troponin i.cardiac measurement (mass/volume) < ng/mL <0.30 Complete blood count (CBC) with automated white blood cell (WBC) differential - 02/02/18 07:30 Blood leukocytes automated count (number/volume) 6.2 10*3/uL 4.3-11.0 Blood erythrocytes automated count (number/volume) 4.60 10*6/uL 4.35-5.85 Venous blood hemoglobin measurement (mass/volume) 12.7 g/dL 11.5-16.0 Blood hematocrit (volume fraction) 40 % 35-52 Automated erythrocyte mean corpuscular volume 86 [foz_us] 80-99 Automated erythrocyte mean corpuscular hemoglobin (mass per erythrocyte) 28 pg 25-34 Automated erythrocyte mean corpuscular hemoglobin concentration measurement (mass/volume) 32 g/dL 32-36 Automated erythrocyte distribution width ratio 22.7 % 10.0- 14.5 Automated blood platelet count (count/volume) 284 10*3/uL 130-400 Automated blood platelet mean volume measurement 10.2 [foz_us] 7.4-10.4 Automated blood neutrophils/100 leukocytes 66 % 42-75 Automated blood lymphocytes/100 leukocytes 17 % 12-44 Blood monocytes/100 leukocytes 10 % 0-12 Automated blood eosinophils/100 leukocytes 5 % 0-10 Automated blood basophils/100 leukocytes 1 % 0-10 Blood neutrophils automated count (number/volume) 4.1 10*3 1.8-7.8 Blood lymphocytes automated count (number/volume) 1.1 10*3 1.0-4.0 Blood monocytes automated count (number/volume) 0.6 10*3 0.0- 1.0 Automated eosinophil count 0.3 10*3/uL 0.0-0.3 Automated blood basophil count (count/volume) 0.1 10*3/uL 0.0-0.1 Whole blood basic metabolic panel - 02/02/18 07:30 Serum or plasma sodium measurement (moles/volume) 142 mmol/L 135-145 Serum or plasma potassium measurement (moles/volume) 3.9 mmol/L 3.6-5.0 Serum or plasma chloride measurement (moles/volume) 107 mmol/L 98-107 Carbon dioxide 26 mmol/L 21-32 Serum or plasma anion gap determination (moles/volume) 9 mmol/L 5-14 Serum or plasma urea nitrogen measurement (mass/volume) 14 mg/dL 7-18 Serum or plasma creatinine measurement (mass/volume) 0.81 mg/dL 0.60-1.30 Serum or plasma urea nitrogen/creatinine mass ratio 17 NRG Serum or plasma creatinine measurement with calculation of estimated glomerular filtration rate > NRG Serum or plasma glucose measurement (mass/volume) 149 mg/dL 70-105 Serum or plasma calcium measurement (mass/volume) 9.5 mg/dL 8.5-10.1 Lipid 1996 panel - 02/02/18 07:30 Serum or plasma triglyceride measurement (mass/volume) 80 mg/dL <150 Serum or plasma cholesterol measurement (mass/volume) 190 mg/dL < 200 Serum or plasma cholesterol in HDL measurement (mass/volume) 54 mg/dL 40-60 Cholesterol in LDL [mass/volume] in serum or plasma by direct assay 119 mg/dL 1-129 Serum or plasma cholesterol in VLDL measurement (mass/volume) 16 mg/dL 5-40 Complete blood count (CBC) with automated white blood cell (WBC) differential - 03/17/18 22:42 Blood leukocytes automated count (number/volume) 8.8 10*3/uL 4.3-11.0 Blood erythrocytes automated count (number/volume) 5.29 10*6/uL 4.35-5.85 Venous blood hemoglobin measurement (mass/volume) 14.3 g/dL 11.5-16.0 Blood hematocrit (volume fraction) 45 % 35-52 Automated erythrocyte mean corpuscular volume 85 [foz_us] 80-99 Automated erythrocyte mean corpuscular hemoglobin (mass per erythrocyte) 27 pg 25-34 Automated erythrocyte mean corpuscular hemoglobin concentration measurement (mass/volume) 32 g/dL 32-36 Automated erythrocyte distribution width ratio 16.7 % 10.0- 14.5 Automated blood platelet count (count/volume) 323 10*3/uL 130-400 Automated blood platelet mean volume measurement 10.4 [foz_us] 7.4-10.4 Automated blood neutrophils/100 leukocytes 68 % 42-75 Automated blood lymphocytes/100 leukocytes 18 % 12-44 Blood monocytes/100 leukocytes 10 % 0-12 Automated blood eosinophils/100 leukocytes 3 % 0-10 Automated blood basophils/100 leukocytes 1 % 0-10 Blood neutrophils automated count (number/volume) 6.0 10*3 1.8-7.8 Blood lymphocytes automated count (number/volume) 1.6 10*3 1.0-4.0 Blood monocytes automated count (number/volume) 0.9 10*3 0.0- 1.0 Automated eosinophil count 0.3 10*3/uL 0.0-0.3 Automated blood basophil count (count/volume) 0.1 10*3/uL 0.0-0.1 Comprehensive metabolic panel - 03/17/18 22:42 Serum or plasma sodium measurement (moles/volume) 142 mmol/L 135-145 Serum or plasma potassium measurement (moles/volume) 4.2 mmol/L 3.6-5.0 Serum or plasma chloride measurement (moles/volume) 104 mmol/L 98-107 Carbon dioxide 25 mmol/L 21-32 Serum or plasma anion gap determination (moles/volume) 13 mmol/L 5-14 Serum or plasma urea nitrogen measurement (mass/volume) 18 mg/dL 7-18 Serum or plasma creatinine measurement (mass/volume) 0.90 mg/dL 0.60-1.30 Serum or plasma urea nitrogen/creatinine mass ratio 20 NRG Serum or plasma creatinine measurement with calculation of estimated glomerular filtration rate > NRG Serum or plasma glucose measurement (mass/volume) 127 mg/dL 70-105 Serum or plasma calcium measurement (mass/volume) 10.2 mg/dL 8.5-10.1 Serum or plasma total bilirubin measurement (mass/volume) 0.6 mg/dL 0.1-1.0 Serum or plasma alkaline phosphatase measurement (enzymatic activity/volume) 91 U/L 40-136 Serum or plasma aspartate aminotransferase measurement (enzymatic activity/volume) 22 U/L 5-34 Serum or plasma alanine aminotransferase measurement (enzymatic activity/volume) 34 U/L 0-55 Serum or plasma protein measurement (mass/volume) 7.4 g/dL 6.4-8.2 Serum or plasma albumin measurement (mass/volume) 4.5 g/dL 3.2-4.5 CALCIUM CORRECTED 9.8 mg/dL 8.5-10.1 Magnesium - 03/17/18 22:42 Magnesium 2.2 mg/dL 1.8-2.4 PT panel in platelet poor plasma by coagulation assay - 03/17/18 22:42 Prothrombin time (PT) in platelet poor plasma by coagulation assay 27.6 s 12.2-14.7 INR in platelet poor plasma or blood by coagulation assay 2.6 0.8-1.4 Activated partial thromboplastin time (aPTT) in platelet poor plasma bycoagulation assay - 03/17/18 22:42 Activated partial thromboplastin time (aPTT) in platelet poor plasma bycoagulation assay 38 s 24-35 THYROID STIMULATING HORMONE - 03/17/18 22:42 THYROID STIMULATING HORMONE 2.17 u[iU]/mL 0.35-4.94 Serum or plasma lithium measurement (moles/volume) - 03/17/18 22:42 BNP level 497.4 pg/mL <100.0 Serum or plasma troponin i.cardiac measurement (mass/volume) - 03/17/18 22:42 Serum or plasma troponin i.cardiac measurement (mass/volume) < ng/mL <0.30 Myoglobin, serum - 03/17/18 22:42 Myoglobin, serum 76.4 ng/mL 10.0-92.0 Serum or plasma thyroxine (T4) free measurement (mass/volume) - 03/17/18 22:42 Serum or plasma thyroxine (T4) free measurement (mass/volume) 1.65 ng/dL 0.70-1.48 Digoxin - 03/17/18 22:42 Digoxin 0.76 ng/mL 0.80-2.00 Complete urinalysis with reflex to culture - 03/17/18 23:16 Urine color determination YELLOW NRG Urine clarity determination CLEAR NRG Urine pH measurement by test strip 8 5-9 Specific gravity of urine by test strip 1.010 1.016-1.022 Urine protein assay by test strip, semi-quantitative [...] sediment leukocyte count by microscopy (number/high power field) NONE NRG Bacteria detection in urine sediment by light microscopy NEGATIVE NRG Squamous epithelial cells detection in urine sediment by light microscopy 0-2 NRG Crystals detection in urine sediment by light microscopy NONE NRG Casts detection in urine sediment by light microscopy NONE NRG Mucus detection in urine sediment by light microscopy NEGATIVE NRG Complete urinalysis with reflex to culture NO NRG Whole blood basic metabolic panel - 04/08/18 08:05 Serum or plasma sodium measurement (moles/volume) 139 mmol/L 135-145 Serum or plasma potassium measurement (moles/volume) 4.1 mmol/L 3.6-5.0 Serum or plasma chloride measurement (moles/volume) 103 mmol/L 98-107 Carbon dioxide 28 mmol/L 21-32 Serum or plasma anion gap determination (moles/volume) 8 mmol/L 5-14 Serum or plasma urea nitrogen measurement (mass/volume) 17 mg/dL 7-18 Serum or plasma creatinine measurement (mass/volume) 0.85 mg/dL 0.60-1.30 Serum or plasma urea nitrogen/creatinine mass ratio 20 NRG Serum or plasma creatinine measurement with calculation of estimated glomerular filtration rate > NRG Serum or plasma glucose measurement (mass/volume) 201 mg/dL 70-105 Serum or plasma calcium measurement (mass/volume) 9.3 mg/dL 8.5-10.1 Complete blood count (CBC) with automated white blood cell (WBC) differential - 06/22/18 11:50 Blood leukocytes automated count (number/volume) 4.4 10*3/uL 4.3-11.0 Blood erythrocytes automated count (number/volume) 5.00 10*6/uL 4.35-5.85 Venous blood hemoglobin measurement (mass/volume) 13.4 g/dL 11.5-16.0 Blood hematocrit (volume fraction) 43 % 35-52 Automated erythrocyte mean corpuscular volume 85 [foz_us] 80-99 Automated erythrocyte mean corpuscular hemoglobin (mass per erythrocyte) 27 pg 25-34 Automated erythrocyte mean corpuscular hemoglobin concentration measurement (mass/volume) 32 g/dL 32-36 Automated erythrocyte distribution width ratio 15.0 % 10.0- 14.5 Automated blood platelet count (count/volume) 264 10*3/uL 130-400 Automated blood platelet mean volume measurement 10.0 [foz_us] 7.4-10.4 Automated blood neutrophils/100 leukocytes 66 % 42-75 Automated blood lymphocytes/100 leukocytes 21 % 12-44 Blood monocytes/100 leukocytes 5 % 0-12 Automated blood eosinophils/100 leukocytes 8 % 0-10 Automated blood basophils/100 leukocytes 1 % 0-10 Blood neutrophils automated count (number/volume) 2.9 10*3 1.8-7.8 Blood lymphocytes automated count (number/volume) 0.9 10*3 1.0-4.0 Blood monocytes automated count (number/volume) 0.2 10*3 0.0- 1.0 Automated eosinophil count 0.3 10*3/uL 0.0-0.3 Automated blood basophil count (count/volume) 0.0 10*3/uL 0.0-0.1 PT panel in platelet poor plasma by coagulation assay - 06/22/18 11:50 Prothrombin time (PT) in platelet poor plasma by coagulation assay 18.1 s 12.2-14.7 INR in platelet poor plasma or blood by coagulation assay 1.5 0.8-1.4 Activated partial thromboplastin time (aPTT) in platelet poor plasma bycoagulation assay - 06/22/18 11:50 Activated partial thromboplastin time (aPTT) in platelet poor plasma bycoagulation assay 36 s 24-35 Comprehensive metabolic panel - 06/22/18 11:50 Serum or plasma sodium measurement (moles/volume) 140 mmol/L 135-145 Serum or plasma potassium measurement (moles/volume) 3.7 mmol/L 3.6-5.0 Serum or plasma chloride measurement (moles/volume) 103 mmol/L 98-107 Carbon dioxide 26 mmol/L 21-32 Serum or plasma anion gap determination (moles/volume) 11 mmol/L 5-14 Serum or plasma urea nitrogen measurement (mass/volume) 15 mg/dL 7-18 Serum or plasma creatinine measurement (mass/volume) 0.86 mg/dL 0.60-1.30 Serum or plasma urea nitrogen/creatinine mass ratio 17 NRG Serum or plasma creatinine measurement with calculation of estimated glomerular filtration rate > NRG Serum or plasma glucose measurement (mass/volume) 202 mg/dL 70-105 Serum or plasma calcium measurement (mass/volume) 10.3 mg/dL 8.5-10.1 Serum or plasma total bilirubin measurement (mass/volume) 0.7 mg/dL 0.1-1.0 Serum or plasma alkaline phosphatase measurement (enzymatic activity/volume) 83 U/L 40-136 Serum or plasma aspartate aminotransferase measurement (enzymatic activity/volume) 18 U/L 5-34 Serum or plasma alanine aminotransferase measurement (enzymatic activity/volume) 18 U/L 0-55 Serum or plasma protein measurement (mass/volume) 7.3 g/dL 6.4-8.2 Serum or plasma albumin measurement (mass/volume) 4.3 g/dL 3.2-4.5 CALCIUM CORRECTED 10.1 mg/dL 8.5-10.1 Magnesium - 06/22/18 11:50 Magnesium 2.1 mg/dL 1.8-2.4 Serum or plasma troponin i.cardiac measurement (mass/volume) - 06/22/18 11:50 Serum or plasma troponin i.cardiac measurement (mass/volume) < ng/mL <0.30 Myoglobin, serum - 06/22/18 11:50 Myoglobin, serum 73.3 ng/mL 10.0-92.0 THYROID STIMULATING HORMONE - 06/22/18 11:50 THYROID STIMULATING HORMONE 1.30 u[iU]/mL 0.35-4.94 Serum or plasma thyroxine (T4) free measurement (mass/volume) - 06/22/18 11:50 Serum or plasma thyroxine (T4) free measurement (mass/volume) 1.36 ng/dL 0.70-1.48 Serum or plasma troponin i.cardiac measurement (mass/volume) - 06/22/18 13:54 Serum or plasma troponin i.cardiac measurement (mass/volume) < ng/mL <0.30 Methicillin resistant Staphylococcus aureus (MRSA) screening culture - 10/10/18 14:00 Methicillin resistant Staphylococcus aureus (MRSA) screening culture NEG NRG Capillary blood glucose measurement by glucometer (mass/volume) - 10/16/18 08:35 Capillary blood glucose measurement by glucometer (mass/volume) 149 mg/dL 70-110 Encounters ACCT No. Visit Date/Time Discharge Status Pt. Type Provider Facility Loc./Unit Complaint [id number] 10/16/2018 08:08:00 10/16/2018 12:25:00 DIS Outpatient JULIET WEBER MD [facility] SDC TRIGGERED RIGHT RING FINGER [id number] 10/10/2018 12:46:00 10/10/2018 23:59:59 CLS Outpatient JULIET WEBER MD [facility] PREOP TRIGGERED RIGHT RING FINGER [id number] 06/22/2018 11:38:00 06/22/2018 15:04:00 DIS Emergency ZENAIDA REINA, ROSALIO Rogers [facility] ER CHEST PAIN [id number] 04/08/2018 07:58:00 04/08/2018 23:59:59 CLS Outpatient ALFREDITO REINA, ASTRID Dennison [facility] LAB I48.0 [id number] 03/17/2018 22:15:00 03/18/2018 01:10:00 DIS Emergency ZENAIDA REINA, ROSALIO Rogers [facility] ER HIGH BP [id number] 02/01/2018 12:16:00 02/02/2018 16:00:00 DIS Inpatient YANET LUCIO DO [facility] ICU A-FIB RVR,CHEST PAIN [id number] 12/21/2017 12:50:00 12/21/2017 13:48:00 DIS Outpatient JUAN FRANCISCO VEGA MD [facility] SDC IRON DEFICIENCY,ANEMIA [id number] 11/28/2017 10:35:00 11/29/2017 16:37:00 DIS Outpatient MEET REINA, LEANNA Mayer [facility] CATH AFIB W/ RVR [id number] 11/26/2017 10:05:00 11/26/2017 23:59:59 CLS Outpatient ODELL DOMINGUEZ [facility] CARD F41.9 ANXIETY, I48.0 AFIB [id number] 09/12/2017 17:08:00 09/13/2017 10:25:00 DIS Inpatient JUAN FRANCISCO VEGA MD [facility] ICU A-FIB WITH RVR [id number] 06/01/2017 01:48:00 06/01/2017 04:28:00 DIS Emergency RACHAEL PIMENTEL MD [facility] ER ABD PAIN,NAUSEA,WEAKNESS [id number] 05/16/2017 12:33:00 05/16/2017 16:06:00 DIS Emergency CR CASON APRN [facility] ER ABD PAIN [id number] 10/18/2016 10:55:00 10/20/2016 11:45:00 DIS Inpatient JUAN FRANCISCO VEGA MD [facility] 4TH SHORTNESS OF BREATH [id number] 04/19/2016 12:57:00 04/19/2016 23:59:59 CLS Outpatient JULIAN MARTIN DO [facility] RAD DYSPNEA,ASTHMA,OBESITY [id number] 10/19/2015 11:01:00 10/21/2015 10:50:00 DIS Inpatient JUAN FRANCISCO VEGA MD [facility] CSD CHEST PAIN,ANXIETY,DYSPNEA [id number] 09/09/2015 15:45:00 09/10/2015 09:45:00 DIS Inpatient JUAN FRANCISCO VEGA MD [facility] ICU ATRIAL FIBRILLATION WITH RVR [id number] 01/22/2015 14:10:00 01/22/2015 23:59:59 CLS Outpatient JULIAN MARTIN DO [facility] RT DYSPNEA,BRONCHIAL ASTHMA [id number] 11/09/2014 12:30:00 11/09/2014 23:59:59 CLS Outpatient LEANNA DSOUZA MD [facility] CARD CAD CP HTN [id number] 12/09/2013 23:30:00 12/10/2013 01:24:00 DIS Emergency STACY INFANTE DO [facility] ER DIZZY;HEADACHE [id number] 10/17/2013 07:07:00 10/17/2013 16:00:00 DIS Outpatient LEANNA DSOUZA MD [facility] CATH CAD,ABN STRESS TEST,OBESITY,HLP,HTN [id number] 10/13/2013 08:07:00 10/13/2013 23:59:59 CLS Outpatient LEANNA DSOUZA MD [facility] RAD AFIB,CAD [id number] 09/09/2013 09:39:00 09/09/2013 23:59:59 CLS Outpatient LEANNA DSOUZA MD [facility] CARD AFIB,CAD [id number] 12/23/2012 00:52:00 12/23/2012 18:10:00 DIS Inpatient JUAN FRANCISCO VEGA MD [facility] ICU A FIB WITH RVR [id number] 11/09/2014 12:30:00 Document Registration [id number] 11/09/2014 12:30:00 Document Registration [id number] 11/09/2014 12:30:00 Document Registration [id number] 09/23/2012 13:05:00 Document Registration [id number] 06/23/2012 11:41:00 Document Registration [id number] 01/04/2012 00:00:00 Document Registration [id number] 11/24/2011 06:17:00 Document Registration [id number] 11/21/2011 09:45:00 Document Registration [id number] 10/17/2011 12:19:00 Document Registration [id number] 10/11/2011 08:43:00 Document Registration [id number] 10/09/2011 08:55:00 Document Registration [id number] 10/06/2011 11:26:00 Document Registration [id number] 09/30/2011 08:18:00 Document Registration [id number] 08/04/2011 13:20:00 Document Registration [id number] 06/05/2011 09:19:00 Document Registration [id number] 05/31/2010 10:25:00 Document Registration [id number] 05/05/2010 14:26:00 Document Registration [id number] 12/08/2009 13:31:00 Document Registration
--- NOTE | 2018-12-28 06:28 | Diagnostic Imaging Report ---
EXAMINATION: PA and lateral chest at 4:23 AM INDICATION: Cough and congestion The mild cardiomegaly and the loop recorder device seen on the prior exam of 05/16/2017 are again visualized and no different. The small nodular density overlying the cardiac silhouette on the lateral view of the prior study is also again identified and unchanged. The lungs remain generally clear. There is no sign of failure, pneumonia or pleural effusion. The mediastinum is not widened. The osseous structures are intact. IMPRESSION: There is no evidence for active disease. When compared to the prior study, there has been no significant change. Dictated by: Dictated on workstation # [id number]
== END 2018-12-28 05:17 | disposition home or self-care (01) ==
LOC: EDUNIT# 03:48 → ER 03:51
DX: J01.00 Acute maxillary sinusitis, unspecified (principal); J44.9 Chronic obstructive pulmonary disease, unspecified; I25.10 Atherosclerotic heart disease of native coronary artery without angina pectoris; E78.00 Pure hypercholesterolemia, unspecified; I48.91 Unspecified atrial fibrillation; K21.9 Gastro-esophageal reflux disease without esophagitis; M06.9 Rheumatoid arthritis, unspecified; E89.0 Postprocedural hypothyroidism; E11.9 Type 2 diabetes mellitus without complications; F41.9 Anxiety disorder, unspecified; Z86.718 Personal history of other venous thrombosis and embolism; Z88.1 Allergy status to other antibiotic agents; Z88.5 Allergy status to narcotic agent; Z88.8 Allergy status to other drugs, medicaments and biological substances; Z79.51 Long term (current) use of inhaled steroids; Z79.84 Long term (current) use of oral hypoglycemic drugs; Z90.710 Acquired absence of both cervix and uterus; Z95.5 Presence of coronary angioplasty implant and graft; Z86.711 Personal history of pulmonary embolism; Z82.49 Family history of ischemic heart disease and other diseases of the circulatory system
CPT/HCPCS: 71046; 87430; 94640

== ENCOUNTER 2020-01-26 15:03 | Inpatient (IN) | payer MEDICARE, OTHER ==
[~2020-01-26] VITALS: Ht 154 cm; Wt 72.1 kg
[~2020-01-26 15:03] MED LIST changes: +ACHD5005 PO; +BENZ-13 PO; +DIGO250T3 PO; +DILT120C88 PO; -DILT120C94 PO; +DOXY100T2 PO; -HYDR-3812 PO; -MECL-106 PO; +MECL-149 PO; -MONT10TA24 PO; +MONT10TA26 PO
[2020-01-26 15:27] LABS: BASOPHILS # (AUTO) 0.1 10^3/uL (0.0-0.1); BASOPHILS % (AUTO) 1 % (0-10); EOSINOPHILS # (AUTO) 0.1 10^3/uL (0.0-0.3); EOSINOPHILS % (AUTO) 2 % (0-10); HEMATOCRIT 48 % (35-52); HEMOGLOBIN 15.6 G/DL (11.5-16.0); LYMPHOCYTES # (AUTO) 1.3 X 10^3 (1.0-4.0); LYMPHOCYTES % (AUTO) 15 % (12-44); MEAN CORPUSCULAR HEMOGLOBIN 28 PG (25-34); MEAN CORPUSCULAR HGB CONC 32 G/DL (32-36); MEAN CORPUSCULAR VOLUME 87 FL (80-99); MEAN PLATELET VOLUME 10.3 FL (7.4-10.4); MONOCYTES # (AUTO) 0.8 X 10^3 (0.0-1.0); MONOCYTES % (AUTO) 9 % (0-12); NEUTROPHILS # (AUTO) 6.6 X 10^3 (1.8-7.8); NEUTROPHILS % (AUTO) 74 % (42-75); PLATELET COUNT 295 10^3/uL (130-400); RED CELL DISTRIBUTION WIDTH 14.7 % (10.0-14.5); WHITE BLOOD COUNT 8.9 10^3/uL (4.3-11.0)
[2020-01-26 15:30] LABS: SMEAR SCAN COMMENT YES
[2020-01-26 15:39] LABS: INR 1.4 (0.8-1.4); PROTHROMBIN TIME PATIENT 17.3 SEC (12.2-14.7)
[2020-01-26 15:41] LABS: ALBUMIN 4.3 GM/DL (3.2-4.5)
--- NOTE | 2020-01-26 15:41 | ED Cardiac General ---
History of Present Illness General Chief Complaint: Cardiac/General Problems Stated Complaint: HIGH PULSE RATE Nursing Triage Note: ARRIVED VIA POV WITH COMPLAINTS OF IRREG ET FAST HEARTRATE. PT STATES SHE CALLED DR HALE OFFICE WHO TOLD HER TO COME HERE. Source: patient History of Present Illness Date Seen by Provider: Jan 26, 2020 Time Seen by Provider: 15:10 Initial Comments PT ARRIVES VIA POV FROM HOME STATES SHE HAS HISTORY OF ATRIAL FIBRILLATION CHECKS HER BLOOD PRESSURE AND HEART RATE EVERY MORNING SOON SHE WAKES UP--STATES SHE "FELT FINE" WHEN SHE WOKE UP HEART RATE WAS 138 AND IRREGULAR THIS MORNING WHEN SHE WOKE AROUND 0700 AND HAS REMAINED THAT WAY ALL DAY STATES SHE HAD A CARDIAC ABLATION AT 04/2017 AND HAS NOT HAD ANY PROBLEMS WITH ATRIAL FIBRILLATION SINCE THEN PT DOES TAKE XARELTO EVERY DAY, BUT NO RATE CONTROLLING MEDICATIONS OR ANTIARRHYTHMICS. NO CHEST PAIN NO SHORTNESS OF BREATH NO SWELLING IN LEGS/ FEET OR PAIN IN CALVES NO DIZZINESS OR SYNCOPE NO SWEATS NO NAUSEA/VOMITING CALLED DR. DSOUZA'S OFFICE, WHO TOLD HER TO COME HERE PCP: DR. VEGA CARIOLOGIST: DR. MEET ELIAS--DR. GLASER / SPECIAL POLICE OFFICER Allergies and Home Medications Allergies Coded Allergies: azithromycin (Verified Allergy, Unknown, 06/23/12) cephalexin (Verified Allergy, Unknown, 04/23/06) levofloxacin (Verified Allergy, Unknown, 06/23/12) meloxicam (Verified Allergy, Unknown, 06/23/12) metoprolol (Verified Allergy, Unknown, NECK SPASMS, 10/18/16) metronidazole (Verified Allergy, Unknown, 06/23/12) morphine (Verified Allergy, Unknown, 04/23/06) theophylline (Verified Allergy, Unknown, 04/23/06) prednisone (Verified Adverse Reaction, Intermediate, STOMACH BLEED, 10/19/15) norfloxacin (Verified Adverse Reaction, Unknown, GI INTOLERANCE, 09/11/07) trovafloxacin (Verified Adverse Reaction, Unknown, GI INTOLERANCE, 09/11/07) Home Medications Albuterol Sulfate 2.5 Mg/3 Ml Vial.neb, 2.5 MG NEB QID PRN for SHORTNESS OF BREATH, (Reported) Albuterol Sulfate 1 Puff Puff, 2 PUFF INH Q4H PRN for SHORTNESS OF BREATH, (Reported) Benzonatate 100 Mg Capsule, 100 MG PO Q6H PRN for COUGH Prescribed by: JOHN ESPINOZA on 12/28/18 0502 Budesonide/Formoterol Fumarate 10.2 Gm Hfa.aer.ad, 2 PUFF IH BID PRN for SHORTNESS OF BREATH, (Reported) EITHER USES BREO OR SYMBICROT, DOES NOT USE THEM TOGETHER Doxycycline Hyclate 100 Mg Tablet, 100 MG PO BID Prescribed by: JOHN ESPINOZA on 12/28/18 0502 Fluticasone/Vilanterol 1 Each Blst.w.dev, 1 PUFF INH DAILY, (Reported) USES EITHER BREO OR SYMBICORT, DOES NOT USE THEM TOGETHER Glipizide 5 Mg Tablet, 2.5 MG PO BID, (Reported) TAKES 1/2 OF A (5 MG) TABLET Hydrocodone Bit/Acetaminophen 1 Each Tablet, 1 TAB PO Q4H Prescribed by: FUNMILAYO MANNING on 10/16/18 1151 Hyoscyamine Sulfate 0.125 Mg Tablet, 0.125 MG PO Q6H PRN for SPASMS, (Reported) Levothyroxine Sodium 75 Mcg Tablet, 75 MCG PO DAILY, (Reported) Propylene Glycol/Peg 400 15 Ml Drops, 2 DROPS OU QID PRN for DRY EYES, (Reported) Rivaroxaban 20 Mg Tablet, 20 MG PO 1700, (Reported) Sucralfate 1 Gm Tablet, 1 GM PO ACHS PRN for GI UPSET, (Reported) DISSOLVE WITH 10ML WATER [Liq Vit B Comp] , 1 APPFUL PO DAILY, (Reported) Patient Home Medication List Home Medication List Reviewed: Yes Review of Systems Review of Systems Constitutional: no symptoms reported; No chills, No diaphoresis, No dizziness, No fever, No malaise, No weakness EENTM: No Symptoms Reported Respiratory: No Symptoms Reported; Denies Orthopnea, Denies Shortness of Air, Denies SOA With Exertion Cardiovascular: See HPI; Denies Chest Pain, Denies Edema; Irregular Heart Rate; Denies Lightheadedness, Denies Syncope Gastrointestinal: No Symptoms Reported Genitourinary: No Symptoms Reported Musculoskeletal: no symptoms reported Skin: no symptoms reported Psychiatric/Neurological: No Symptoms Reported Endocrine: No Symptoms Reported Hematologic/Lymphatic: No Symptoms Reported Past Pwiuarc-Kjexdh-Kfnyea Hx Past Med/Social Hx: Reviewed and Corrections made Patient Social History Alcohol Use: Denies Use Recreational Drug Use: No Smoking Status: Never a Smoker 2nd Hand Smoke Exposure: No Recent Foreign Travel: No Contact w/Someone Who Travel: No Recent Infectious Disease Expo: No Recent Hopitalizations: No Immunizations Up To Date Tetanus Booster (TDap): Unknown Date of Pneumonia Vaccine: Mar 14, 2016 Date of Influenza Vaccine: Apr 08, 2017 Seasonal Allergies Seasonal Allergies: Yes Past Medical History Surgeries: Yes (R CTR;SINUS;R FOOT;BILAT TKR;CARDIAC ABLATION;CARDIAC CATH- STENTS X1;LINQ ) Cardiac, Coronary Stent, Gallbladder, Hysterectomy, Orthopedic, Thyroidectomy Respiratory: Yes Asthma, Pulmonary Embolism, COPD Currently Using CPAP: No Currently Using BIPAP: No Cardiac: Yes (stents x 3, implanted heart monitor;CARDIAC ABLATION 04/2018 AT ) Atrial Fibrillation, Coronary Artery Disease, Deep Vein Thrombosis, High Cholesterol Neurological: No Reproductive Disorders: No Female Reproductive Disorders: Denies Sexually Transmitted Disease: No HIV/AIDS: No Genitourinary: No Gastrointestinal: Yes Gastroesophageal Reflux, Gastrointestinal Bleed Musculoskeletal: Yes (MULTIPLE ORTHO SURGERIES) Arthritis, Rheumatoid Arthritis Endocrine: Yes (right thyroidectomy) Hypothyroidsim, Diabetes, Non-Insulin dep HEENT: Yes (GLASSES) Cataract Loss of Vision: Bilateral Hearing Impairment: Denies Cancer: No Psychosocial: Yes Anxiety Integumentary: No Blood Disorders: No Adverse Reaction/Blood Tranf: No (HAS HAD BLOOD WITH NO REACTION) Family Medical History Arthritis 19 FATHER G8 SISTER Congenital heart disease 19 MOTHER G8 BROTHER Diabetes mellitus G8 BROTHER FH: CHF (congestive heart failure) 19 FATHER 19 MOTHER G8 BROTHER FH: CVA (cerebrovascular accident) 19 MOTHER G8 SISTER FH: hypercholesterolemia FH: musculoskeletal disease 19 FATHER G8 SISTER Glaucoma G8 SISTER Hypercholesterolemia Hypertension 19 MOTHER G8 SISTER Myocardial infarction G8 BROTHER Heart Disease, Hypertension PSH: -1965-UTERINE SUSPENSION -1975-HYSTERECTOMY -1978-RIGHT CARPAL TUNNEL -1984-CHOLECYSTECTOMY -1987-SINUS SURGERY/POLYP REMOVAL -1991-RIGHT FOOT SURGERY -2006-RIGHT THYROIDECTOMY -2007-LEFT TOTAL KNEE REPLACEMENT -2011-CARDIAC CATH--STENT X 1 AND ANGIOPLASTY -2012-BILATERAL CATARACT SURGERIES -REVEAL LINQ DEVICE IMPLANTED -04/2018-CARDIAC ABLATION AT FOR ATRIAL FIBRILLATION 04/2018-HAND SURGERY Physical Exam Vital Signs Vital Signs - First Documented 01/26/20 15:03 Temp 36.6 Pulse 140 Resp 16 B/P (MAP) 166/97 (120) Pulse Ox 97 O2 Delivery Room Air Capillary Refill : Less Than 3 Seconds Height, Weight, BMI Height: 5'1.00" Weight: 160lbs. 5.0oz. 72.487514pj; 31.00 BMI Method:Stated General Appearance: No Apparent Distress, WD/WN, Other (TALKS NON-STOPT AT LENGTH--NO DYSPNEA) Neck: Full Range of Motion, Normal Inspection, Non Tender, Supple; No Carotid Bruit Respiratory: Normal Breath Sounds, No Accessory Muscle Use, No Respiratory Distress Cardiovascular: No JVD, No Murmur, Normal Peripheral Pulses, Irregularly Irregular, Tachycardia Gastrointestinal: Non Tender, Soft Extremity: Normal Capillary Refill, Normal Inspection, Normal Range of Motion, Non Tender, No Calf Tenderness, No Pedal Edema Neurologic/Psychiatric: Alert, Oriented x3, No Motor/Sensory Deficits, Normal Mood/Affect, tube tester II-XII Norm as Tested Skin: Normal Color, Warm/Dry Progress/Results/Core Measures Results/Orders Lab Results Laboratory Tests Test 01/26/20 15:15 Range/Units White Blood Count 8.9 4.3-11.0 10^3/uL Red Blood Count 5.52 4.35-5.85 10^6/uL Hemoglobin 15.6 11.5-16.0 G/DL Hematocrit 48 35-52 % Mean Corpuscular Volume 87 80-99 FL Mean Corpuscular Hemoglobin 28 25-34 PG Mean Corpuscular Hemoglobin Concent 32 32-36 G/DL Red Cell Distribution Width 14.7 H 10.0-14.5 % Platelet Count 295 130-400 10^3/uL Mean Platelet Volume 10.3 7.4-10.4 FL Neutrophils (%) (Auto) 74 42-75 % Lymphocytes (%) (Auto) 15 12-44 % Monocytes (%) (Auto) 9 0-12 % Eosinophils (%) (Auto) 2 0-10 % Basophils (%) (Auto) 1 0-10 % Neutrophils # (Auto) 6.6 1.8-7.8 X 10^3 Lymphocytes # (Auto) 1.3 1.0-4.0 X 10^3 Monocytes # (Auto) 0.8 0.0-1.0 X 10^3 Eosinophils # (Auto) 0.1 0.0-0.3 10^3/uL Basophils # (Auto) 0.1 0.0-0.1 10^3/uL Prothrombin Time 17.3 H 12.2-14.7 SEC INR Comment 1.4 0.8-1.4 Activated Partial Thromboplast Time 34 24-35 SEC Sodium Level 142 135-145 MMOL/L Potassium Level 3.8 3.6-5.0 MMOL/L Chloride Level 106 98-107 MMOL/L Carbon Dioxide Level 25 21-32 MMOL/L Anion Gap 11 5-14 MMOL/L Blood Urea Nitrogen 12 7-18 MG/DL Creatinine 0.77 0.60-1.30 MG/DL Estimat Glomerular Filtration Rate > 60 BUN/Creatinine Ratio 16 Glucose Level 134 H 70-105 MG/DL Calcium Level 9.9 8.5-10.1 MG/DL Corrected Calcium 9.7 8.5-10.1 MG/DL Magnesium Level 2.0 1.6-2.4 MG/DL Total Bilirubin 0.9 0.1-1.0 MG/DL Aspartate Amino Transf (AST/SGOT) 19 5-34 U/L Alanine Aminotransferase (ALT/SGPT) 15 0-55 U/L Alkaline Phosphatase 77 40-136 U/L Total Creatine Kinase 81 29-168 U/L Creatine Kinase MB 3.1 <6.6 NG/ML Troponin I < 0.028 <0.028 NG/ML B-Type Natriuretic Peptide 453.7 H <100.0 PG/ML Total Protein 7.5 6.4-8.2 GM/DL Albumin 4.3 3.2-4.5 GM/DL TSH [facility] Testing 1.11 0.35-4.94 UIU/ML Smear Scan YES My Orders Orders - PRETTY TORRES DO Ed Iv/Invasive Line Start (01/26/20 15:17) Ekg Tracing (01/26/20 15:17) Monitor-Rhythm Ecg Trace Only (01/26/20 15:17) BNP (01/26/20 15:17) Cbc With Automated Diff (01/26/20 15:17) Comprehensive Metabolic Panel (01/26/20 15:17) Creatine Kinase (01/26/20 15:17) Creatine Kinase Mb (01/26/20 15:17) Magnesium (01/26/20 15:17) Protime With Inr (7/20/20 15:17) Partial Thromboplastin Time (01/26/20 15:17) Thyroid Analyzer (01/26/20 15:17) Troponin I (01/26/20 15:17) Chest 1 View, Ap/Pa Only (01/26/20 15:17) Diltiazem Injection (Cardizem Injection) (01/26/20 15:30) Diltiazem Drip Pre-Mix (Cardizem Drip Pr (01/26/20 15:45) Digoxin Injection (Lanoxin Injection) (01/26/20 16:15) Water (Sterile) For Injection (Sterile W (01/26/20 16:06) Water (Sterile) For Injection (Sterile W (01/26/20 16:30) Amiodarone Injection (Cordarone Injectio (01/26/20 17:45) Amiodarone Injection (Cordarone Injectio (01/26/20 17:45) Medications Given in ED Current Medications Medications Dose Ordered Sig/Mary Route Start Time Stop Time Status Last Admin Dose Admin Digoxin 0.5 mg ONCE ONCE IV 01/26/20 16:15 01/26/20 16:16 DC 01/26/20 16:13 0.5 MG Diltiazem HCl 20 mg ONCE ONCE IVP 01/26/20 15:30 01/26/20 15:31 DC 01/26/20 15:25 20 MG Sterile Water 10 ml UD ONCE IV 01/26/20 16:30 01/26/20 16:31 DC 01/26/20 16:13 10 ML Vital Signs/I&O 01/26/20 15:03 Temp 36.6 Pulse 140 Resp 16 B/P (MAP) 166/97 (120) Pulse Ox 97 O2 Delivery Room Air Blood Pressure Mean: 120 Progress Progress Note : Progress Note PT EXTREMELY ANXIOUS ABOUT BEING ADMITTED TO THE HOSPITAL FOR MULTIPLE REASONS- UPCOMING BIRTHDAY GREEN PARTY THIS WEEK, GETTING EXPOSED TO COVID-19. REASSURANCE GIVE TO PT REGARDING PREVENTION MEASURES IN HOSPITAL REGARDING COVID-19 EXPOSURE RISKS. PT GIVEN DIGOXIN AND GIVEN CARDIZEM BOLUS AND PLACED ON DRIP-MAXED OUT ON CARDIZEM DRIP, WITH NO CHANGE IN RATE/NO CONVERSION TO NSR--RATE STILL 135-140 GIVEN AMIODARONE BOLUS JUST PRIOR TO ADMIT. PT EVENTUALLY AGREED TO ADMIT. NO DETERIORATION IN PT'S CONDITION DURING ER STAY Initial ECG Impression Date: Jan 26, 2020 Initial ECG Impression Time: 15:21 Initial ECG Rate: 139 Initial ECG Impression: Atrial Fibrillation w/RVR EKG : EKG Time: 18:11 Rate: 136 ECG Impression: Atrial Fibrillation w/RVR Diagnostic Imaging Comments CXR--NO ACUTE PROCESS, PER RADIOLOGIST REPORT Reviewed: Reviewed by Me Departure Communication (Admissions) 1650--ATTEMPTING TO CONTACT DR. DSOUZA, NO ANSWER ON CELL. 1735--SPOKE WITH DR. BARRAGAN, SENIOR SUPPORT ENGINEER USABILITY ENGINEER. ADVISES AMIODARONE BOLUS AND DRIP, AND HE WILL SEE PT IN CONSULT 1738--SPOKE WITH DR. VEGA, ACCEPTS PT FOR ADMIT. Impression Primary Impression: Atrial fibrillation with rapid ventricular response Disposition: ADMITTED INPATIENT Condition: Stable/Unchanged Admissions Decision to Admit Reason: Admit from ER (General) Decision to Admit/Date: Jan 26, 2020 Time/Decision to Admit Time: 17:40 Departure-Patient Inst. Referrals: JUAN FRANCISCO VEGA MD (PCP/Family) Primary Care Physician PRETTY TORRES DO Jan 26, 2020 15:40
[2020-01-26 15:42] LABS: CHLORIDE 106 MMOL/L (98-107); POTASSIUM 3.8 MMOL/L (3.6-5.0); SODIUM 142 MMOL/L (135-145)
[2020-01-26 15:43] LABS: CALCIUM 9.9 MG/DL (8.5-10.1)
[2020-01-26 15:44] LABS: GLUCOSE 134 MG/DL (70-105); TOTAL PROTEIN 7.5 GM/DL (6.4-8.2)
[2020-01-26 15:45] LABS: CARBON DIOXIDE 25 MMOL/L (21-32)
[2020-01-26] MEDS ORDERED: dilTIAZem DRIP PRE-MIX 125 ML IV SCH (15:45)
[2020-01-26 15:46] LABS: BILIRUBIN,TOTAL 0.9 MG/DL (0.1-1.0)
[2020-01-26 15:47] LABS: ALKALINE PHOSPHATASE 77 U/L (40-136)
[2020-01-26 15:48] LABS: CREATININE SERUM 0.77 MG/DL (0.60-1.30); GFR ESTIMATED > 60
[2020-01-26 15:49] LABS: BUN/CREATININE RATIO 16
[2020-01-26 15:51] LABS: ALANINE AMINOTRANSFERASE 15 U/L (0-55); CREATINE KINASE 81 U/L (29-168)
[2020-01-26 15:58] LABS: CREATINE KINASE MB 3.1 NG/ML (<6.6)
--- NOTE | 2020-01-26 16:03 | Diagnostic Imaging Report ---
INDICATION: Atrial fibrillation. TECHNIQUE: Frontal chest obtained at 03:55 p.m. and compared to 12/28/2018. FINDINGS: There is cardiomegaly. There is mild central vascular congestion which appears similar to the prior study. There are calcified nodes in the right hilum, compatible with old granulomatous disease. There is no focal infiltrate or pneumothorax or pleural fluid. There are mild chronic-appearing increased interstitial markings. IMPRESSION: Cardiomegaly with mild central vascular congestion appearing similar to the prior study with chronic-appearing increased interstitial markings. No acute consolidation or pleural fluid. Calcified nodes in right hilum, compatible with old granulomatous disease. Dictated by: Dictated on workstation # [id number]
[2020-01-26] MEDS ORDERED: WATER (STERILE) FOR INJECTION 10 ML ONE (16:06)
[2020-01-26 16:11] LABS: TSH (THYROID ANALYZER) 1.11 UIU/ML (0.35-4.94)
[2020-01-26] MEDS ORDERED: DIGOXIN 0.25 MG/ML (LANOXIN) 2 ML AMP IV ONE (16:15)
[2020-01-26] MEDS ORDERED: WATER (STERILE) FOR INJ 10 ML BTL IV ONE (16:30)
[2020-01-26] MEDS ORDERED: RIVAROXABAN 20 MG TABLET (XARELTO) PO SCH (17:00)
--- NOTE | 2020-01-26 17:04 | NUR ---
IN ROOM TALKING TO THE PT AT THIS TIME.
[2020-01-26] MEDS ORDERED: AMIODARONE INJECTION 450 MG in D5W IV SOLUTION (EXCEL) 250 ML IV SCH (17:45)
[2020-01-26] MEDS ORDERED: AMIODARONE INJECTION 150 MG in D5W 100 ML IVPB 100 ML IV ONE (17:45)
[2020-01-26] MEDS ORDERED: AMIODARONE (OMNICELL DRIP KIT) 150 MG/3 ML IV ONE (18:05)
[2020-01-26] MEDS ORDERED: D5W 100 ML IVPB 100 ML IV ONE (18:09)
--- NOTE | 2020-01-26 18:24 | NUR ---
PT ARRIVES FROM ED AND MOVES TO ICU BED WITH NO DIFFICULTIES. PT VERY TALKATIVE AND WORRIED ABOUT COVID. ATTEMPTS TO CALM PATIENTS FEARS MADE, DISCUSSED PRECAUTIONS BEING USED. BSM APPLIED, PT STILL A.FIB WITH RATE 80-90. SHE HAS NO COMPLAINTS OF SOA, CHEST PAIN, OR INCREASED SWELLING. DR VEGA NOTIFIED OF PATIENT ARRIVAL AND OK'D TO TAKE HOME MEDS. DR BARRAGAN GAVE AUTHORIZATION TO GIVE PATIENT HER XARELTO TONIGHT PER HER USUAL SCHEDULE. MEDS FOR TONIGHT WERE ORDERED AND SENT FOR PHARMACY TO VERIFY. PT VOICED NO FURTHER NEEDS, CALL LIGHT WITHIN REACH AND BED IN LOW POSITION.
[2020-01-26 18:42] VITALS: BP 127/70
[2020-01-26] MEDS: AMIODARONE 450 MG/250 ML D5W EXCEL IV SCH ×2 (18:51)
[2020-01-26 19:00] VITALS: BP 137/79
[2020-01-26 20:00] VITALS: BP 113/76
[2020-01-26] MEDS ORDERED: PATIENT MAY USE OWN MEDS, ALL MC SCH (20:00)
[2020-01-26] MEDS: RIVAROXABAN 20 MG TABLET (XARELTO) PO SCH (20:09)
[2020-01-26] MEDS: glipiZIDE 5 MG (GLUCOTROL) TAB PO SCH (20:10)
[2020-01-26 21:00] VITALS: BP 127/64
[2020-01-26 22:00] VITALS: BP 98/68
[2020-01-26] MEDS: dilTIAZem DRIP 125 MG/125 ML DRIP IV SCH ×2 (22:23→22:47)
[2020-01-26 23:00] VITALS: BP 93/55
[2020-01-27] VITALS (24 sets, daily range): BP systolic 93–141; BP diastolic 57–95
[2020-01-27 04:01] LABS: BASOPHILS % (AUTO) 1 % (0-10); EOSINOPHILS # (AUTO) 0.3 10^3/uL (0.0-0.3); EOSINOPHILS % (AUTO) 4 % (0-10); HEMATOCRIT 48 % (35-52); HEMOGLOBIN 15.6 G/DL (11.5-16.0); LYMPHOCYTES # (AUTO) 1.6 X 10^3 (1.0-4.0); LYMPHOCYTES % (AUTO) 22 % (12-44); MEAN CORPUSCULAR HEMOGLOBIN 29 PG (25-34); MEAN CORPUSCULAR HGB CONC 33 G/DL (32-36); MEAN CORPUSCULAR VOLUME 87 FL (80-99); MEAN PLATELET VOLUME 10.6 FL (7.4-10.4); MONOCYTES # (AUTO) 0.7 X 10^3 (0.0-1.0); MONOCYTES % (AUTO) 10 % (0-12); NEUTROPHILS # (AUTO) 4.8 X 10^3 (1.8-7.8); NEUTROPHILS % (AUTO) 64 % (42-75); PLATELET COUNT 296 10^3/uL (130-400); RED CELL DISTRIBUTION WIDTH 14.9 % (10.0-14.5); WHITE BLOOD COUNT 7.6 10^3/uL (4.3-11.0)
[2020-01-27 04:03] LABS: ALBUMIN 3.9 GM/DL (3.2-4.5); CHLORIDE 105 MMOL/L (98-107); POTASSIUM 3.8 MMOL/L (3.6-5.0); SODIUM 140 MMOL/L (135-145)
[2020-01-27 04:04] LABS: CALCIUM 9.7 MG/DL (8.5-10.1)
[2020-01-27 04:05] LABS: GLUCOSE 117 MG/DL (70-105); TOTAL PROTEIN 6.7 GM/DL (6.4-8.2)
[2020-01-27 04:07] LABS: CARBON DIOXIDE 22 MMOL/L (21-32)
[2020-01-27 04:09] LABS: ALKALINE PHOSPHATASE 66 U/L (40-136); CREATININE SERUM 0.77 MG/DL (0.60-1.30); GFR ESTIMATED > 60
[2020-01-27 04:10] LABS: BUN/CREATININE RATIO 16
[2020-01-27 04:12] LABS: ALANINE AMINOTRANSFERASE 12 U/L (0-55)
[2020-01-27 05:50] LABS: PHOSPHORUS 3.8 MG/DL (2.3-4.7)
--- NOTE | 2020-01-27 07:42 | Diagnostic Imaging Report ---
INDICATION: Follow-up, history of atrial fibrillation. EXAMINATION: Chest 01/27/2020 COMPARISON: 01/26/2020 FINDINGS: There is a loop recorder device in the left lower chest. The heart is unremarkable. Pulmonary vasculature normal. Lungs and pleural spaces clear. No pneumothorax is seen. IMPRESSION: 1. No acute cardiopulmonary process. Dictated by: Dictated on workstation # [id number]
[2020-01-27] MEDS: AMIODARONE 450 MG/250 ML D5W EXCEL IV SCH ×2 (07:48)
--- NOTE | 2020-01-27 08:21 | History & Physical ---
MICHAEL SILVA [facility] 01/27/20 0821: History of Present Illness History of Present Illness Reason for visit/HPI Pt was feeling fine at home and checked her blood pressure heart rate and glucose likely she normally does every morning. She noticed her HR was elevated in the 130's so she told her and they decide to take it easy for the morning and see if that would help. She has a history or A-fib with left and right atrial ablations performed in 04/2017. She reports not having any issues or return of her A-fib since the ablation. She was very nervous to come tot [facility] due to anxiety about getting COVID-19. She eventually called her defect cutter Dr. Aguilar's office to see what she should do when after repeat checks her HR did not improve. She states she had no symptoms at that time, when in the past she would get very short of breath and fatigued with her A-fib. Dr. Aguilar's office sent her to the ER to have it checked out. Where she was found to be in A-fib with HR around 140. She was started on a Cardizem drip and Amiodarone. She has been on the medication overnight with a decrease in HR to the 85-90 range most times, but her rate increases to 100-115 with significant movements. Date of Admission Jan 26, 2020 at 17:40 Date Seen by a Provider: Jan 27, 2020 Time Seen by a Provider: 07:00 I consulted on this patient on 01/27/20 08:13 Attending Physician Shanice Santana MD Admitting Physician Juan Francisco Elaine MD Consult Allergies and Home Medications Allergies Coded Allergies: azithromycin (Verified Allergy, Unknown, 06/23/12) cephalexin (Verified Allergy, Unknown, 04/23/06) levofloxacin (Verified Allergy, Unknown, 06/23/12) meloxicam (Verified Allergy, Unknown, 06/23/12) metoprolol (Verified Allergy, Unknown, NECK SPASMS, 10/18/16) metronidazole (Verified Allergy, Unknown, 06/23/12) morphine (Verified Allergy, Unknown, 04/23/06) theophylline (Verified Allergy, Unknown, 04/23/06) prednisone (Verified Adverse Reaction, Intermediate, STOMACH BLEED, 10/19/15) norfloxacin (Verified Adverse Reaction, Unknown, GI INTOLERANCE, 09/11/07) trovafloxacin (Verified Adverse Reaction, Unknown, GI INTOLERANCE, 09/11/07) Home Medications Albuterol Sulfate 1 Puff Puff, 2 PUFF IH Q4H run through [employer] savings plan (#3 inhalers) Prescribed by: JUAN FRANCISCO ELAINE on 01/27/20 1435 Budesonide/Formoterol Fumarate 10.2 Gm Hfa.aer.ad, 2 PUFF IH BID PRN for SHORTNESS OF BREATH, (Reported) Dulaglutide 0.75 Mg/0.5 Ml Pen.injctr, 0.75 MG IJ SUNDAY, (Reported) Fluticasone/Salmeterol 1 Each Aer.pow.ba, 1 PUFF PO BID PRN for SHORTNESS OF BREATH, (Reported) Fluticasone/Salmeterol 12 Gm Hfa.aer.ad, 1 PUFF IH BID run through [employer] plan (3 month supply) Prescribed by: JUAN FRANCISCO ELAINE on 01/27/20 1435 Glipizide 5 Mg Tablet, 5 MG PO BID, (Reported) Levothyroxine Sodium 75 Mcg Tablet, 75 MCG PO DAILY, (Reported) Propylene Glycol/Peg 400 15 Ml Drops, 2 DROPS OU QID PRN for DRY EYES, (Reported) Rivaroxaban 20 Mg Tablet, 20 MG PO 1700 RUN THROUGH [employer] PROGRAM (#90) Prescribed by: JUAN FRANCISCO ELAINE on 01/27/20 1435 [Vitamin B] , 1 UNIT PO DAILY, (Reported) Past Bileocp-Kxosze-Hiforh Hx Patient Social History Alcohol Use: Denies Use Recreational Drug Use: No Smoking Status: Never a Smoker 2nd Hand Smoke Exposure: No Recent Foreign Travel: No Contact w/other who traveled: No Recent Hopitalizations: No Recent Infectious Disease Expo: No Immunizations Up To Date Tetanus Booster (TDap): Unknown Date of Pneumonia Vaccine: Jul 09, 2016 Date of Influenza Vaccine: Apr 08, 2017 Seasonal Allergies Seasonal Allergies: Yes Surgeries Yes (R CTR;SINUS;R FOOT;BILAT TKR;CARDIAC ABLATION;CARDIAC CATH-STENTS X1;LINQ ) Cardiac, Coronary Stent, Gallbladder, Hysterectomy, Orthopedic, Thyroidectomy Respiratory Yes Asthma Currently Using CPAP: No Currently Using BIPAP: No Cardiovascular Yes (stents x 3, implanted heart monitor;CARDIAC ABLATION 04/2018 AT ) Atrial Fibrillation, Coronary Artery Disease, Deep Vein Thrombosis, High Cholesterol Neurological No Reproductive System Hx Reproductive Disorders: No Sexually Transmitted Disease: No HIV/AIDS: No Female Reproductive Disorders: Denies Genitourinary No Gastrointestinal Yes Gastroesophageal Reflux, Gastrointestinal Bleed Musculoskeletal Yes (MULTIPLE ORTHO SURGERIES) Arthritis, Rheumatoid Arthritis Endocrine History of Endocrine Disorders: Yes (right thyroidectomy) Endocrine Disorders: Hypothyroidsim, Diabetes, Non-Insulin dep HEENT History of HEENT Disorders: Yes (GLASSES) HEENT Disorders: Cataract Loss of Vision: Bilateral Hearing Impairment: Denies Cancer No Psychosocial History of Psychiatric Problem: Yes Behavioral Health Disorders: Anxiety Integumentary History of Skin or Integumenta: No Blood Transfusions History of Blood Disorders: No Adverse Reaction to a Blood Tr: No (HAS HAD BLOOD WITH NO REACTION) Family Medical History Significant Family History: Heart Disease, Hypertension Other Significan Family Hx: PSH: -1965-UTERINE SUSPENSION -1975-HYSTERECTOMY -1978-RIGHT CARPAL TUNNEL -1984-CHOLECYSTECTOMY -1987-SINUS SURGERY/POLYP REMOVAL -1991-RIGHT FOOT SURGERY -2006-RIGHT THYROIDECTOMY -2007-LEFT TOTAL KNEE REPLACEMENT -2011-CARDIAC CATH--STENT X 1 AND ANGIOPLASTY -2012-BILATERAL CATARACT SURGERIES -REVEAL LINQ DEVICE IMPLANTED -04/2018-CARDIAC ABLATION AT FOR ATRIAL FIBRILLATION 04/2018-HAND SURGERY Family Hx: Arthritis 19 FATHER G8 SISTER Congenital heart disease 19 MOTHER G8 BROTHER Diabetes mellitus G8 BROTHER FH: CHF (congestive heart failure) 19 FATHER 19 MOTHER G8 BROTHER FH: CVA (cerebrovascular accident) 19 MOTHER G8 SISTER FH: hypercholesterolemia FH: musculoskeletal disease 19 FATHER G8 SISTER Glaucoma G8 SISTER Hypercholesterolemia Hypertension 19 MOTHER G8 SISTER Myocardial infarction G8 BROTHER Review of Systems Constitutional: No chills, No dizziness, No fever EENTM: No hearing loss, No blurred vision, No vision loss, No nose congestion Respiratory: No cough, No dyspnea on exertion, No short of breath Cardiovascular: No chest pain; Hx of Intervention (Atrial Ablation 2016); No palpitations Gastrointestinal: No abdominal pain, No constipation, No diarrhea, No nausea, No vomiting Genitourinary: No dysuria, No pain Musculoskeletal: No muscle stiffness, No muscle weakness Psychiatric/Neurological: Anxiety; Denies Headache, Denies Numbness, Denies Weakness Physical Exam Vital Signs Vital Signs - First Documented 01/26/20 15:03 Temp 36.6 Pulse 140 Resp 16 B/P (MAP) 166/97 (120) Pulse Ox 97 O2 Delivery Room Air Capillary Refill : Less Than 3 Seconds Height, Weight, BMI Height: 5'1.00" Weight: 160lbs. 5.0oz. 72.224396ux; 31.00 BMI Method:Stated General Appearance: No Apparent Distress, WD/WN, Anxious HEENT: PERRL/EOMI, Moist Mucous Membranes Neck: Full Range of Motion, Normal Inspection Respiratory: Chest Non Tender, Lungs Clear, Normal Breath Sounds, No Accessory Muscle Use, No Respiratory Distress Cardiovascular: No Edema, Normal Peripheral Pulses, Irregularly Irregular, Tachycardia (Intermittent ) Gastrointestinal: Normal Bowel Sounds, Soft Rectal: Deferred Back: Normal Inspection, No Vertebral Tenderness Extremity: Normal Inspection, Non Tender, No Calf Tenderness, No Pedal Edema Neurologic/Psychiatric: Alert, Oriented x3, No Motor/Sensory Deficits; No Carleen l Mood/Affect (Anxious) Skin: Normal Color, Warm/Dry Assessment/Plan Assessment and Plan A-FIB -ACUTE WITH HISTORY OF BIATRIAL ABLATION IN 04/2017 -CONSULTED DR SANTANA CARDIOLOGY -CARDIZEM DRIP, AMIODARONE, XARELTO -MONITOR DIABETES -CONTINUE HOME MEDICATIONS -PT DUE FOR HER TRULICITY INJECTION TOMORROW -PT NPO STATUS CURRENTLY -HOLD PRE MEAL GLIPIZIDE -MONITOR BLOOD GLUCOSE HYPOTHYROIDISM -CONTINUE LEVOTHYROXINE 75MCG Clinical Quality Measures DVT/VTE Risk/Contraindication: Risk Factor Score Per Nursin RFS Level Per Nursing on Admit: 4+=Very High JUAN FRANCISCO ELAINE MD 01/27/200: History of Present Illness History of Present Illness Reason for visit/HPI PT IS WELL KNOWN TO ME FROM CLINIC. SHE PRESENTED TO THE HOSPITAL FOR AFIB WITH HEART RATE ELEVATED IN THE 130'S. SHE DENIES CHEST PAIN, SHE HAS CHRONIC S HORTNESS OF BREATH DUE TO ASTHMA. SHE DENIES NAUSEA, DIZZINESS, CHEST PAIN. Date of Admission 01/26/2020 I consulted on this patient on 01/27/2020 @2456 Attending Physician JUAN FRANCISCO ELAINE MD Admitting Physician JUAN FRANCISCO ELAINE MD Allergies and Home Medications Allergies Coded Allergies: azithromycin (Verified Allergy, Unknown, 06/23/12) cephalexin (Verified Allergy, Unknown, 04/23/06) levofloxacin (Verified Allergy, Unknown, 06/23/12) meloxicam (Verified Allergy, Unknown, 06/23/12) metoprolol (Verified Allergy, Unknown, NECK SPASMS, 10/18/16) metronidazole (Verified Allergy, Unknown, 06/23/12) morphine (Verified Allergy, Unknown, 04/23/06) theophylline (Verified Allergy, Unknown, 04/23/06) prednisone (Verified Adverse Reaction, Intermediate, STOMACH BLEED, 10/19/15) norfloxacin (Verified Adverse Reaction, Unknown, GI INTOLERANCE, 09/11/07) trovafloxacin (Verified Adverse Reaction, Unknown, GI INTOLERANCE, 09/11/07) Home Medications Albuterol Sulfate 1 Puff Puff, 2 PUFF IH Q4H run through [employer] savings plan (#3 inhalers) Prescribed by: JUAN FRANCISCO ELAINE on 01/27/20 1435 Budesonide/Formoterol Fumarate 10.2 Gm Hfa.aer.ad, 2 PUFF IH BID PRN for SHORTNESS OF BREATH, (Reported) Dulaglutide 0.75 Mg/0.5 Ml Pen.injctr, 0.75 MG IJ SUNDAY, (Reported) Fluticasone/Salmeterol 1 Each Aer.pow.ba, 1 PUFF PO BID PRN for SHORTNESS OF BREATH, (Reported) Fluticasone/Salmeterol 12 Gm Hfa.aer.ad, 1 PUFF IH BID run through [employer] plan (3 month supply) Prescribed by: JUAN FRANCISCO ELAINE on 01/27/20 1435 Glipizide 5 Mg Tablet, 5 MG PO BID, (Reported) Levothyroxine Sodium 75 Mcg Tablet, 75 MCG PO DAILY, (Reported) Propylene Glycol/Peg 400 15 Ml Drops, 2 DROPS OU QID PRN for DRY EYES, (Reported) Rivaroxaban 20 Mg Tablet, 20 MG PO 1700 RUN THROUGH [employer] PROGRAM (#90) Prescribed by: JUAN FRANCISCO ELAINE on 01/27/20 1435 [Vitamin B] , 1 UNIT PO DAILY, (Reported) Patient Home Medication List Home Medication List Reviewed: Yes Past Ayjrvvp-Mmurqt-Iyuyys Hx Patient Social History Marrital Status: Living Status: LIVES AT HOME WITH SPOUSE Employed/Student: retired Alcohol Use: Denies Use Recreational Drug Use: No Smoking Status: Never a Smoker Respiratory Yes Asthma Currently Using CPAP: No Currently Using BIPAP: No Cardiovascular Yes Atrial Fibrillation, High Cholesterol, Hypertension Neurological No Reproductive System : No Gastrointestinal No Musculoskeletal No Endocrine History of Endocrine Disorders: Yes Endocrine Disorders: Diabetes, Non-Insulin dep HEENT History of HEENT Disorders: No Loss of Vision: Denies Hearing Impairment: Denies Cancer No Reviewed Nursing Assessment Reviewed/Agree w Nursing PMH: Yes Family Medical History Significant Family History: Heart Disease, Diabetes, Hypertension Family Hx: Arthritis 19 FATHER G8 SISTER Congenital heart disease 19 MOTHER G8 BROTHER Diabetes mellitus G8 BROTHER FH: CHF (congestive heart failure) 19 FATHER 19 MOTHER G8 BROTHER FH: CVA (cerebrovascular accident) 19 MOTHER G8 SISTER FH: hypercholesterolemia FH: musculoskeletal disease 19 FATHER G8 SISTER Glaucoma G8 SISTER Hypercholesterolemia Hypertension 19 MOTHER G8 SISTER Myocardial infarction G8 BROTHER Review of Systems Respiratory: short of breath (CHRONIC INTERMITTENT) Cardiovascular: No chest pain; palpitations : No Musculoskeletal: no symptoms reported Skin: no symptoms reported Psychiatric/Neurological: Anxiety Physical Exam General Appearance: No Apparent Distress, WD/WN Eyes: Bilateral Eye Normal Inspection, Bilateral Eye PERRL, Bilateral Eye EOMI HEENT: PERRL/EOMI, TMs Normal, Normal ENT Inspection, Pharynx Normal, Moist Mucous Membranes Neck: Full Range of Motion, Normal Inspection, Non Tender, Supple Respiratory: Chest Non Tender, Lungs Clear, Normal Breath Sounds, No Accessory Muscle Use, No Respiratory Distress Cardiovascular: No Edema, Normal Peripheral Pulses, Irregularly Irregular, Tachycardia (Intermittent ) Gastrointestinal: Normal Bowel Sounds, No Organomegaly, Non Tender, Soft Rectal: Deferred Back: Normal Inspection, No CVA Tenderness, No Vertebral Tenderness Extremity: Normal Capillary Refill, Normal Inspection, Normal Range of Motion, Non Tender, No Calf Tenderness, No Pedal Edema Neurologic/Psychiatric: Alert, Oriented x3, No Motor/Sensory Deficits, Normal 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, 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 as 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 Skin: Normal Color, Warm/Dry Lymphatic: No Adenopathy Assessment/Plan Assessment and Plan ACUTE ON CHRONIC ATRIAL FIBRILLATION - CONTINUE WITH RATE CONTROL OF HEART WITH IV MEDICATIONS, AMIODARONE - DEFER TO CARDIOLOGY HYPERTENSION - PT ON RATE CONTROLLING MEDICATIONS - MONITOR SYMPTOMS HYPOTHYROID - CONTINUE WITH LEVOTHYROXINE - MONITOR TSH, FREE T4 DM - - SUPPORTIVE CARE, MONITOR FSBS Admission Diagnosis ACUTE ON CHRONIC ATRIAL FIBRILLATION HYPERTENSION HYPOTHYROID DM Admission Status: Inpatient Order (span 2 midnights) Reason for Inpatient Admission: INPT ADMISSION FOR UNCONTROLLED AFIB - WILL REQUIRE 48 HOURS IN HOSPITAL Supervisory-Addendum Brief Verification & Attestation Participated in pt care: history, MDM, physical Personally performed: exam, history, MDM, supervision of care Care discussed with: Medical Student Procedures: n/a Results interpretation: Verified all documentation ACUTE ON CHRONIC ATRIAL FIBRILLATION - CONTINUE WITH RATE CONTROL OF HEART WITH IV MEDICATIONS, AMIODARONE - DEFER TO CARDIOLOGY HYPERTENSION - PT ON RATE CONTROLLING MEDICATIONS - MONITOR SYMPTOMS HYPOTHYROID - CONTINUE WITH LEVOTHYROXINE - MONITOR TSH, FREE T4 DM - - SUPPORTIVE CARE, MONITOR FSBS [facility] Jan 27, 2020 08:21 JUAN FRANCISCO ELAINE MD Jan 27, 2020 22:10
--- NOTE | 2020-01-27 08:27 | Consultation-Cardiology ---
HPI-Cardiology Cardiology Consultation: Date of Consultation 01/27/20 Time Seen by a Provider: 09:45 Date of Admission 01-26-2020 Attending Physician Shanice Santana MD Admitting Physician Juan Francisco Elaine MD Consulting Physician Jona Garsia MD Primary Assistant Grocery: Dr. Aguilar HPI: Chief Complaint: A-fib with RVR Ms. Tadeo is a 79 year old female admitted to ICU 11 from the ED with a-fib with RVR. She reports she follows with Dr. Zapien of EP services at [facility]. She is on OAC with Xarelto for stroke prophylaxis and reports she has not missed any doses. She states she got up yesterday morning to check her blood glucose and BP. She reports her HR on home monitor was 138. She denies any c/o palpitation s, dyspnea, lower extremity swelling, syncope, or near syncope. She states she called Dr. Aguilar's office and was directed to the ED. Review of Systems-Cardiology Review of Systems Constitutional: No chills, No fever, No malaise Eyes: No vision change Ears/Nose/Throat: No epistaxis, No recent hearing loss Respiratory: As described under HPI Cardiovascular: As described under HPI Gastrointestinal: No constipation, No diarrhea, No nausea, No vomiting Genitourinary: No dysuria Musculoskeletal: no symptoms reported Skin: No rash on exposed areas, No ulcerations on exposed areas Psychiatric/Neurological: No focal weakness, No syncope Hematologic: No bleeding abnormalities [facility] H[facility] Patient Social History Alcohol Use: Denies Use Recreational Drug Use: No Smoking Status: Never a Smoker 2nd Hand Smoke Exposure: No Recent Foreign Travel: No Recent Infectious Disease Expo: No Immunizations Up To Date Tetanus Booster (TDap): Unknown Date of Pneumonia Vaccine: Jul 09, 2016 Date of Influenza Vaccine: Apr 08, 2017 Past Medical History PMH As described under Assessment. Family Medical History Family Medical History: She Family History: 19 FATHER FH: musculoskeletal disease Arthritis FH: CHF (congestive heart failure) 19 MOTHER FH: CVA (cerebrovascular accident) Congenital heart disease Hypertension FH: CHF (congestive heart failure) G8 BROTHER Diabetes mellitus Congenital heart disease Myocardial infarction FH: CHF (congestive heart failure) G8 SISTER FH: musculoskeletal disease Arthritis Glaucoma FH: CVA (cerebrovascular accident) Hypertension Relation not specified for: FH: hypercholesterolemia Hypercholesterolemia Allergies and Home Medications Allergies Coded Allergies: azithromycin (Verified Allergy, Unknown, 06/23/12) cephalexin (Verified Allergy, Unknown, 04/23/06) levofloxacin (Verified Allergy, Unknown, 06/23/12) meloxicam (Verified Allergy, Unknown, 06/23/12) metoprolol (Verified Allergy, Unknown, NECK SPASMS, 10/18/16) metronidazole (Verified Allergy, Unknown, 06/23/12) morphine (Verified Allergy, Unknown, 04/23/06) theophylline (Verified Allergy, Unknown, 04/23/06) prednisone (Verified Adverse Reaction, Intermediate, STOMACH BLEED, 10/19/15) norfloxacin (Verified Adverse Reaction, Unknown, GI INTOLERANCE, 09/11/07) trovafloxacin (Verified Adverse Reaction, Unknown, GI INTOLERANCE, 09/11/07) Home Medications Albuterol Sulfate 1 Puff Puff, 2 PUFF IH Q4H run through [employer] savings plan (#3 inhalers) Prescribed by: MICHAEL ROBERSON on 01/27/20 1435 Budesonide/Formoterol Fumarate 10.2 Gm Hfa.aer.ad, 2 PUFF IH BID PRN for SHORTNESS OF BREATH, (Reported) Dulaglutide 0.75 Mg/0.5 Ml Pen.injctr, 0.75 MG IJ SUNDAY, (Reported) Fluticasone/Salmeterol 1 Each Aer.pow.ba, 1 PUFF PO BID PRN for SHORTNESS OF BREATH, (Reported) Fluticasone/Salmeterol 12 Gm Hfa.aer.ad, 1 PUFF IH BID run through 340b plan (3 month supply) Prescribed by: MICHAEL ROBERSON on 01/27/20 1435 Glipizide 5 Mg Tablet, 5 MG PO BID, (Reported) Levothyroxine Sodium 75 Mcg Tablet, 75 MCG PO DAILY, (Reported) Propylene Glycol/Peg 400 15 Ml Drops, 2 DROPS OU QID PRN for DRY EYES, (Reported) Rivaroxaban 20 Mg Tablet, 20 MG PO 1700 RUN THROUGH [employer]B PROGRAM (#90) Prescribed by: MICHAEL ROBERSON on 01/27/20 1435 [Vitamin B] , 1 UNIT PO DAILY, (Reported) Physical Exam-Cardiology Physical Exam Vital Signs/I&O 01/27/20 01/27/20 01/27/20 01/27/20 05:00 06:00 07:00 07:00 Pulse 79 86 82 91 Resp 19 14 16 B/P (MAP) 130/75 (93) 122/77 (92) 117/78 (91) Pulse Ox 91 97 96 O2 Delivery Room Air Room Air Room Air 01/27/20 01/27/20 01/27/20 01/27/20 08:00 08:00 08:00 09:00 Temp 36.8 Pulse 89 96 Resp 16 20 B/P (MAP) 122/82 (95) 110/66 (81) Pulse Ox 96 96 O2 Delivery Room Air Room Air Room Air 01/27/20 01/27/20 01/27/20 01/27/20 10:00 11:00 12:00 12:00 Temp 36.7 Pulse 87 86 Resp 26 13 B/P (MAP) 124/79 (94) 139/81 (100) Pulse Ox 96 97 O2 Delivery Room Air Room Air Room Air 01/27/20 01/27/20 01/27/20 01/27/20 12:00 12:58 13:00 14:00 Pulse 118 93 105 69 Resp 20 11 13 B/P (MAP) 103/88 (93) 141/95 (110) 120/73 (89) Pulse Ox 95 97 97 O2 Delivery Room Air Room Air Room Air 01/27/20 15:00 Pulse 71 Resp 19 B/P (MAP) 104/72 (83) Pulse Ox 94 O2 Delivery Room Air 01/27/20 00:00 Intake Total 428 ml Output Total 600 ml Balance -172 ml Capillary Refill : Less Than 3 Seconds Constitutional: AAO x 3, well-developed, well-nourished HEENT: PERRL, hearing is well preserved, oral hygience is good Neck: No carotid bruit; carotid pulses are 2 + bilaterally Respiratory: No accessory muscle use, No respiratory distress; chest expansion is symmetric, chest is bilaterally symmetric, lungs clear to auscultation Cardiovascular: irregularly irregular, S1 and S2 Gastrointestinal: No tender; soft, round, audible bowel sounds Extremities: no lower extremity edema bilateral Neurologic/Psychiatric: grossly intact, power is 5/5 both on sides Skin: No rash on exposed areas, No ulcerations on exposed areas Data Review Labs Laboratory Tests 01/26/20 21:27: Troponin I 0.028 01/27/20 03:31: White Blood Count 7.6, Red Blood Count 5.47, Hemoglobin 15.6, Hematocrit 48, Mean Corpuscular Volume 87, Mean Corpuscular Hemoglobin 29, Mean Corpuscular Hemoglobin Concent 33, Red Cell Distribution Width 14.9H, Platelet Count 296, Mean Platelet Volume 10.6H, Neutrophils (%) (Auto) 64, Lymphocytes (%) (Auto) 22, Monocytes (%) (Auto) 10, Eosinophils (%) (Auto) 4, Basophils (%) (Auto) 1, Neutrophils # (Auto) 4.8, Lymphocytes # (Auto) 1.6, Monocytes # (Auto) 0.7, Eosinophils # (Auto) 0.3, Basophils # (Auto) 0.0, Sodium Level 140, Potassium Level 3.8, Chloride Level 105, Carbon Dioxide Level 22, Anion Gap 13, Blood Urea Nitrogen 12, Creatinine 0.77, Estimat Glomerular Filtration Rate > 60, BUN/Creatinine Ratio 16, Glucose Level 117H, Calcium Level 9.7, Corrected Calcium 9.8, Phosphorus Level 3.8, Magnesium Level 2.0, Total Bilirubin 0.8, Aspartate Amino Transf (AST/SGOT) 15, Alanine Aminotransferase (ALT/SGPT) 12, Alkaline Phosphatase 66, Total Protein 6.7, Albumin 3.9 Radiology NAME: BLACK TADEO [facility] REC#: [id number] PT STATUS: ADM IN : 1940 PHYSICIAN: JUAN FRANCISCO ELAINE MD ADMIT DATE: 01/26/20/ICU Signed Date of Exam:01/27/20 CHEST 1 VIEW, AP/PA ONLY INDICATION: Follow-up, history of atrial fibrillation. EXAMINATION: Chest 01/27/2020 COMPARISON: 01/26/2020 FINDINGS: There is a loop recorder device in the left lower chest. The heart is unremarkable. Pulmonary vasculature normal. Lungs and pleural spaces clear. No pneumothorax is seen. IMPRESSION: 1. No acute cardiopulmonary process. Dictated by: Dictated on workstation # [id number] Dict: 01/27/20 0739 Trans: 01/27/20 0749 [facility] [id number] Interpreted by: JACQUELYN CASTILLO MD Electronically signed by: JACQUELYN CASTILLO MD 01/27/20 0749 ECG Impression ECG Initial ECG Impression: Atrial Fibrillation w/RVR A/P-Cardiology Assessment/Admission Diagnosis A-fib with RVR H/O Paroxysmal atrial fibrillation, managed by Dr. Zapien and had ablation in April 2018. LINq has reached end of battery life (managed by Dr. Aguilar and Dr. Zapien) Coronary artery disease, history of stent using 3.5x15 mm resolute drug-eluting stent to the LAD expanded to 3.86 mm with excellent results. Most recent cardiac catheterization October 2013 revealed patent stent to the LAD with otherwise moderate disease in the distal LAD. Very small artery distally. Otherwise, no significant obstructive disease. Had an exercise stress echo in October 2015 which showed hypertensive response with normal echocardiographic images with no ischemic changes, unable to tolerate aspirin. Repeat cardiac catheterization was done in November 2017 showing patent stents in the proximal LAD with small vessel disease distally with normal left ventricular end-diastolic pressure. [id number] score is 4, yearly risk of stroke without oral anticoagulation is 4 percent, currently on Xarelto. Echocardiogram was done in November 2017 showing normal LV size with EF 55-65 percent, mildly dilated left atrium measuring 4.45 cm, right atrial dilatation, calcified mitral valve with mild MR, aortic valve sclerosis no aortic stenosis, moderate TR, PA 50-55 mmHg. Hypertension Hyperlipidemia, unable to tolerate simvastatin Mild bilateral carotid stenosis, last ultrasound was done in April 2018 History of GI bleed, intolerance to aggressive oral anticoagulations including aspirin and Plavix and Coumadin Chronic anemia - followed by PCP Hypothyroidism, Monitored and managed by primary care physician Pulmonary nodule, noted on CT scan, followed by Dr. Mcmullen COPD, bronchial asthma, allergy, followed by Dr. Mcmullen Diabetes mellitus, managed and followed by primary care physician. Anxiety, management per PCP Multiple medication intolerances including oral diltiazem and BB Discussion and Recomendations A-fib with RVR - continue IV amiodarone and IV Cardizem Per her request we have spoken with Dr. Aguilar - her primary die cast die maker, regarding plan of care and reached out to Dr. Zapien of EP services at [facility] We will continue OAC with Xarelto Continue home medications If she does not convert with IV medications then we will proceed with cardioversion tomorrow Monitor lab closely Further recs will be based on her hospital course Clinical Quality Measures DVT/VTE Risk/Contraindication: Risk Factor Score Per Nursin RFS Level Per Nursing on Admit: 4+=Very High DELICIA JONES [facility] Jan 27, 2020 08:27
[2020-01-27 09:27] LABS: BILIRUBIN,TOTAL 0.8 MG/DL (0.1-1.0)
[2020-01-27] MEDS ORDERED: DULA0.75 IJ (09:52)
[2020-01-27] MEDS ORDERED: BUDE10.2 IH (09:52)
[2020-01-27] MEDS ORDERED: GLIP5TAB13 PO (09:52)
[2020-01-27] MEDS ORDERED: VITAMIN B PO (09:52)
[2020-01-27] MEDS: glipiZIDE 5 MG (GLUCOTROL) TAB PO SCH (10:31)
[2020-01-27] MEDS ORDERED: FLUT1AER4 PO (11:05)
--- NOTE | 2020-01-27 11:11 | NUR ---
SPOKE WITH THE PT (SHE DOES HAVE SOME OF HER HOME MEDS WITH HER) WENT THRU THE EXT MED HISTORY AND CALLED [facility] TO COMPLETE THE MED REC ADVAIR 113/14 AND SYMBICORT 160/4.5 ARE BOTH INHALER THAT THE PT USES PRN AND DOESNT USE EITHER A MAINTENANCE MED (PT INDICATED SHE DOESNT USE THEM BOTH AT THE SAME TIME THOUGH). WHEN ASKED ABOUT AN ALBUTEROL HFA FOR RESCUE USE SHE INDICATES SHE DOESNT HAVE ONE AND IF HER BREATHING GETS BAD SHE USES AN ALBUTEROL NEBULIZER TREATMENT (PT HAS NOT PICKED THIS UP SINCE AUG 2018 ALL OTHER MEDICATIONS ARE SHOWN ON THE EXT MED HISTORY AND THE PT WAS ABLE TO TELL ME HOW/ WHEN SHE TAKES EACH OTC MEDS: VIT B LIQUID SYSTANE EYE DROPS Addendum: 01/27/20 at 1120 by ERIN QUINTEROS air export agent DUE TO THE PT NOT USING ANY INHALERS FOR MAINTENANCE USE I DID INFORM THE PHARMACIST (MICHAEL) OF THIS OF MED COUNSELING IF NEEDED
[2020-01-27] MEDS: LEVOTHYROXINE 75 MCG (LEVOTHROID) TABLET PO SCH (11:47)
--- NOTE | 2020-01-27 12:43 | Consultation-Cardiology ---
HPI-Cardiology Cardiology Consultation: Date of Consultation 01/27/20 Time Seen by a Provider: 10:15 Date of Admission Attending Physician Shanice Santana MD Admitting Physician Clarice Elaine MD Consulting Physician LARON PAT MD, MA, FACP, FACC, [facility], CCDS Primary assembly machine offbearer: Dr Aguilar HPI: Chief Complaint: Reason for Cardiology consultation: A-fib with RVR HPI Ms. Tadeo is a 79 year old female admitted to ICU 11 from the ED with a-fib with RVR. She reports she follows with Dr. Zapien of EP services at [facility] and with Dr Aguilar in [place], [place]. She is on OAC with Xarelto for stroke prophylaxis and reports she has not missed any doses. She states she got up yesterday morning to check her blood glucose and BP. She reports her HR on home monitor was 138. She denies any c/o palpitations, dyspnea, lower extremity swelling, syncope, or near syncope. She states she called Dr. Aguilar's office and was directed to the ED. Review of Systems-Cardiology Review of Systems Constitutional: No chills, No fever, No malaise Eyes: No vision change Ears/Nose/Throat: No epistaxis, No recent hearing loss Respiratory: As described under HPI Cardiovascular: As described under HPI Gastrointestinal: No constipation, No diarrhea, No nausea, No vomiting Genitourinary: No dysuria Musculoskeletal: no symptoms reported Skin: No rash on exposed areas, No ulcerations on exposed areas Psychiatric/Neurological: No focal weakness, No syncope Hematologic: No bleeding abnormalities [id number]-Nlfavz Hx Patient Social History Alcohol Use: Denies Use Recreational Drug Use: No Smoking Status: Never a Smoker 2nd Hand Smoke Exposure: No Recent Foreign Travel: No Recent Infectious Disease Expo: No Immunizations Up To Date Tetanus Booster (TDap): Unknown Date of Pneumonia Vaccine: Jul 09, 2016 Date of Influenza Vaccine: Apr 08, 2017 Past Medical History PMH As described under Assessment. Family Medical History Family History: Arthritis 19 FATHER G8 SISTER Congenital heart disease 19 MOTHER G8 BROTHER Diabetes mellitus G8 BROTHER FH: CHF (congestive heart failure) 19 FATHER 19 MOTHER G8 BROTHER FH: CVA (cerebrovascular accident) 19 MOTHER G8 SISTER FH: hypercholesterolemia FH: musculoskeletal disease 19 FATHER G8 SISTER Glaucoma G8 SISTER Hypercholesterolemia Hypertension 19 MOTHER G8 SISTER Myocardial infarction G8 BROTHER Allergies and Home Medications Allergies Coded Allergies: azithromycin (Verified Allergy, Unknown, 06/23/12) cephalexin (Verified Allergy, Unknown, 04/23/06) levofloxacin (Verified Allergy, Unknown, 06/23/12) meloxicam (Verified Allergy, Unknown, 06/23/12) metoprolol (Verified Allergy, Unknown, NECK SPASMS, 10/18/16) metronidazole (Verified Allergy, Unknown, 06/23/12) morphine (Verified Allergy, Unknown, 04/23/06) theophylline (Verified Allergy, Unknown, 04/23/06) prednisone (Verified Adverse Reaction, Intermediate, STOMACH BLEED, 10/19/15) norfloxacin (Verified Adverse Reaction, Unknown, GI INTOLERANCE, 09/11/07) trovafloxacin (Verified Adverse Reaction, Unknown, GI INTOLERANCE, 09/11/07) Home Medications Budesonide/Formoterol Fumarate 10.2 Gm Hfa.aer.ad, 2 PUFF IH BID PRN for SHORTNESS OF BREATH, (Reported) Dulaglutide 0.75 Mg/0.5 Ml Pen.injctr, 0.75 MG IJ SUNDAY, (Reported) Fluticasone/Salmeterol 1 Each Aer.pow.ba, 1 PUFF PO BID PRN for SHORTNESS OF BREATH, (Reported) Glipizide 5 Mg Tablet, 5 MG PO BID, (Reported) Levothyroxine Sodium 75 Mcg Tablet, 75 MCG PO DAILY, (Reported) Propylene Glycol/Peg 400 15 Ml Drops, 2 DROPS OU QID PRN for DRY EYES, (Reported) Rivaroxaban 20 Mg Tablet, 20 MG PO 1700, (Reported) [Vitamin B] , 1 UNIT PO DAILY, (Reported) Patient Home Medication List Home Medication List Reviewed: Yes Physical Exam-Cardiology Physical Exam Vital Signs/I&O 01/27/20 01/27/20 01/27/20 01/27/20 01:00 01:00 02:00 03:15 Pulse 57 57 67 94 Resp 23 20 21 B/P (MAP) 121/61 (81) 119/70 (86) 98/73 (81) Pulse Ox 94 95 97 O2 Delivery Room Air Room Air Room Air 01/27/20 01/27/20 01/27/20 01/27/20 03:34 04:00 04:00 05:00 Temp 36.0 Pulse 81 79 Resp 19 19 B/P (MAP) 118/71 (87) 130/75 (93) Pulse Ox 95 91 O2 Delivery Room Air Room Air Room Air 01/27/20 01/27/20 01/27/20 01/27/20 06:00 07:00 07:00 08:00 Pulse 86 82 91 89 Resp 14 16 16 B/P (MAP) 122/77 (92) 117/78 (91) 122/82 (95) Pulse Ox 97 96 96 O2 Delivery Room Air Room Air Room Air 01/27/20 01/27/20 01/27/20 01/27/20 08:00 08:00 09:00 10:00 Temp 36.8 Pulse 96 87 Resp 20 26 B/P (MAP) 110/66 (81) 124/79 (94) Pulse Ox 96 96 O2 Delivery Room Air Room Air Room Air 01/27/20 01/27/20 01/27/20 11:00 12:00 12:00 Pulse 86 118 Resp 13 20 B/P (MAP) 139/81 (100) 103/88 (93) Pulse Ox 97 95 O2 Delivery Room Air Room Air Room Air 01/27/20 00:00 Intake Total 428 ml Output Total 600 ml Balance -172 ml Capillary Refill : Less Than 3 Seconds Constitutional: AAO x 3, well-developed, well-nourished HEENT: PERRL, hearing is well preserved, oral hygience is good Neck: No carotid bruit; carotid pulses are 2 + bilaterally Respiratory: No accessory muscle use, No respiratory distress; chest expansion is symmetric, chest is bilaterally symmetric, lungs clear to auscultation Cardiovascular: irregularly irregular, S1 and S2 Gastrointestinal: No tender; soft, round, audible bowel sounds Extremities: no lower extremity edema bilateral Neurologic/Psychiatric: oriented x 3, other (moves all limbs equally) Skin: No rash on exposed areas, No ulcerations on exposed areas Data Review Labs Laboratory Tests 01/26/20 15:15: White Blood Count 8.9, Red Blood Count 5.52, Hemoglobin 15.6, Hematocrit 48, Mean Corpuscular Volume 87, Mean Corpuscular Hemoglobin 28, Mean Corpuscular Hemoglobin Concent 32, Red Cell Distribution Width 14.7H, Platelet Count 295, Mean Platelet Volume 10.3, Neutrophils (%) (Auto) 74, Lymphocytes (%) (Auto) 15, Monocytes (%) (Auto) 9, Eosinophils (%) (Auto) 2, Basophils (%) (Auto) 1, Neutrophils # (Auto) 6.6, Lymphocytes # (Auto) 1.3, Monocytes # (Auto) 0.8, Eosinophils # (Auto) 0.1, Basophils # (Auto) 0.1, Prothrombin Time 17.3H, INR Comment 1.4, Activated Partial Thromboplast Time 34, Sodium Level 142, Potassium Level 3.8, Chloride Level 106, Carbon Dioxide Level 25, Anion Gap 11, Blood Urea Nitrogen 12, Creatinine 0.77, Estimat Glomerular Filtration Rate > 60, BUN/Creatinine Ratio 16, Glucose Level 134H, Calcium Level 9.9, Corrected Calcium 9.7, Magnesium Level 2.0, Total Bilirubin 0.9, Aspartate Amino Transf (A ST/SGOT) 19, Alanine Aminotransferase (ALT/SGPT) 15, Alkaline Phosphatase 77, Total Creatine Kinase 81, Creatine Kinase MB 3.1, Troponin I < 0.028, B-Type Natriuretic Peptide 453.7H, Total Protein 7.5, Albumin 4.3, TSH Pryor Testing 1.11, Smear Scan YES 01/26/20 21:27: Troponin I 0.028 01/27/20 03:31: White Blood Count 7.6, Red Blood Count 5.47, Hemoglobin 15.6, Hematocrit 48, Mean Corpuscular Volume 87, Mean Corpuscular Hemoglobin 29, Mean Corpuscular Hemoglobin Concent 33, Red Cell Distribution Width 14.9H, Platelet Count 296, Mean Platelet Volume 10.6H, Neutrophils (%) (Auto) 64, Lymphocytes (%) (Auto) 22, Monocytes (%) (Auto) 10, Eosinophils (%) (Auto) 4, Basophils (%) (Auto) 1, Neutrophils # (Auto) 4.8, Lymphocytes # (Auto) 1.6, Monocytes # (Auto) 0.7, Eosinophils # (Auto) 0.3, Basophils # (Auto) 0.0, Sodium Level 140, Potassium Level 3.8, Chloride Level 105, Carbon Dioxide Level 22, Anion Gap 13, Blood Urea Nitrogen 12, Creatinine 0.77, Estimat Glomerular Filtration Rate > 60, BUN/Creatinine Ratio 16, Glucose Level 117H, Calcium Level 9.7, Corrected C alcium 9.8, Magnesium Level 2.0, Total Bilirubin 0.8, Aspartate Amino Transf (AST/SGOT) 15, Alanine Aminotransferase (ALT/SGPT) 12, Alkaline Phosphatase 66, Total Protein 6.7, Albumin 3.9, Phosphorus Level 3.8 Laboratory Tests 01/26/20 15:15 01/27/20 03:31 A/P-Cardiology Assessment/Admission Diagnosis A-fib with RVR H/O PAF, ablated by Dr Zapien at [facility] in April 2018. ILR has reached end of battery life (managed by Dr. Aguilar and Dr. Zapien) Coronary artery disease: h/o LAD stent 3.5x15 mm Resolute. Last cardiac catheterization was done in November 2017 showing patent stents in the proximal LAD with small vessel disease distally with normal left ventricular end-diastolic pressure. [id number] score is 4, currently on Xarelto. Echocardiogram was done in November 2017 showing normal LV size with EF 55-65 percent, mildly dilated left atrium measuring 4.45 cm, right atrial dilatation, calcified mitral valve with mild MR, aortic valve sclerosis, no aortic stenosis, moderate TR, PA 50-55 mmHg. Hypertension Hyperlipidemia, unable to tolerate simvastatin Mild bilateral carotid stenosis, last ultrasound was done in April 2018 History of GI bleed, intolerance to certain oral anticoagulants, including aspirin and Plavix and Coumadin (as documented by Dr Aguilar) Chronic anemia - followed by PCP Hypothyroidism, Monitored and managed by pcp Pulmonary nodule, noted on CT scan, followed by Dr. Mcmullen COPD, bronchial asthma, allergy, followed by Dr. Mcmullen Diabetes mellitus, managed and followed by pcp Anxiety, management per PCP Multiple medication intolerances including oral diltiazem and BB Discussion and Recomendations Complex management due to multiple medication intolerances At patient request, I called her EP Dr Zapien and left him a message to call us back At patient request, I called her primary assembly machine offbearer Dr Aguilar and discussed the case with him Continue rivaroxaban for stroke prophylaxis (chronically on it and has been compliant) Continue iv amiodarone load Won't be able to take oral diltiazem If stays in A Fib and symptomatic, then elec cardioversion tomorrow Monitor labs I answered her questions and concerns in detail. She agrees with the above plan Clinical Quality Measures DVT/VTE Risk/Contraindication: Risk Factor Score Per Nursin RFS Level Per Nursing on Admit: 4+=Very High LARON PAT MD FACP FACC CCDS Jan 27, 2020 12:42
[2020-01-27] MEDS ORDERED: RIVA20TA2 PO (14:35)
[2020-01-27] MEDS ORDERED: RT-ALBUINH IH (14:35)
[2020-01-27] MEDS ORDERED: FLUT12AE4 IH (14:35)
--- NOTE | 2020-01-27 14:35 | NUR ---
MET WITH PATIENT TO DISCUSS HOME MEDICATIONS (COST AND COMPLIANCE), DISCUSSED [employer]AN TO HELP COVER INHALERS AND XARELTO. RECEIVED TO FOR NEW ORDERS FOR ADVAIR, PROAIR, AND XARELTO TO BE SENT TO [facility]. DISCUSSED THAT THE PAYMENT WILL NOT APPLY TOWARDS DEDUCTIBLES, SPEND DOWNS, OR MEDICARE PART D GAP.
[2020-01-27] MEDS: RIVAROXABAN 20 MG TABLET (XARELTO) PO SCH (17:51)
[2020-01-27] MEDS: AMIODARONE 200 MG (CORDARONE) TAB PO SCH (19:17)
[2020-01-27] MEDS ORDERED: glipiZIDE 5 MG (GLUCOTROL) TAB PO SCH (21:00)
[2020-01-27] MEDS: dilTIAZem DRIP 125 MG/125 ML DRIP IV SCH (23:51)
[2020-01-28] VITALS (12 sets, daily range): BP systolic 98–127; BP diastolic 59–82
[2020-01-28 03:36] LABS: HEMOGLOBIN 15.3 G/DL (11.5-16.0); MEAN PLATELET VOLUME 10.5 FL (7.4-10.4); RED CELL DISTRIBUTION WIDTH 14.8 % (10.0-14.5); WHITE BLOOD COUNT 7.5 10^3/uL (4.3-11.0)
[2020-01-28 03:45] LABS: INR 3.1 (0.8-1.4)
[2020-01-28 03:47] LABS: CHLORIDE 106 MMOL/L (98-107); POTASSIUM 4.1 MMOL/L (3.6-5.0); SODIUM 140 MMOL/L (135-145)
[2020-01-28 03:49] LABS: CALCIUM 9.1 MG/DL (8.5-10.1); GLUCOSE 156 MG/DL (70-105)
[2020-01-28 03:51] LABS: CARBON DIOXIDE 23 MMOL/L (21-32)
[2020-01-28 03:53] LABS: CREATININE SERUM 0.85 MG/DL (0.60-1.30); GFR ESTIMATED > 60
[2020-01-28 03:54] LABS: BUN/CREATININE RATIO 20
[2020-01-28 03:55] LABS: MAGNESIUM 1.9 MG/DL (1.6-2.4)
[2020-01-28] MEDS: LEVOTHYROXINE 75 MCG (LEVOTHROID) TABLET PO SCH (05:45)
[2020-01-28] MEDS: AMIODARONE 200 MG (CORDARONE) TAB PO SCH (05:45)
[2020-01-28] MEDS ORDERED: LIDOCAINE 2% VISCOUS 15 ML UDC PO ONE (07:30)
--- NOTE | 2020-01-28 07:52 | NUR ---
cost of medications xaralto 20mg #90 $22.50 advair HFA # 3 inhalers $22.06 Proair # 3 inhalers $21.97
--- NOTE | 2020-01-28 08:11 | Progress Note ---
Subjective Subjective Date Seen by Provider: Jan 28, 2020 Time Seen by Provider: 07:15 Pt reports feeling fine today. She denies any changes from yesterday except feeling increased hunger today. She states she had a normal BM yesterday and has experienced no shortness of breath, palpitations or chest pain with her t ransfers to the toilet. She states she wore O2 nasal cannula last night because she wanted to get some sleep without the nursing staff coming in because her O2 was getting low again. She did not know she had sleep apnea and was agreeable to being tested and possibly wearing a CPAP at night. She states se was able to get some good sleep last night. She is anxious about getting home soon and the Cardioversion she is expected to have today due to her persistent A-fib. Review of Systems General: No Chills, No Appetite HEENT: No Head Aches, No Visual Changes; Post Nasal Drip; No Sore Throat Pulmonary: No Dyspnea, No Cough Cardiovascular: No: Chest Pain, Palpitations, Edema Gastrointestinal: No: Nausea, Vomiting, Abdominal Pain, Diarrhea, Constipation Genitourinary: No Dysuria, No Frequency Musculoskeletal: No: back pain, leg pain Neurological: No: Weakness, Numbness, Confusion Objective Exam Vital Signs Vital Signs - First Documented 01/26/20 15:03 Temp 36.6 Pulse 140 Resp 16 B/P (MAP) 166/97 (120) Pulse Ox 97 O2 Delivery Room Air Capillary Refill : Less Than 3 Seconds General Appearance: No Apparent Distress, WD/WN Eyes: Bilateral Eye Normal Inspection, Bilateral Eye PERRL, Bilateral Eye EOMI HEENT: PERRL/EOMI, TMs Normal, Normal ENT Inspection, Pharynx Normal, Moist Mucous Membranes Neck: Full Range of Motion, Normal Inspection, Non Tender, Supple Respiratory: Chest Non Tender, Lungs Clear, Normal Breath Sounds, No Accessory Muscle Use, No Respiratory Distress Cardiovascular: No Edema, Normal Peripheral Pulses, Irregularly Irregular, Tachycardia (Intermittent ) Gastrointestinal: Normal Bowel Sounds, No Organomegaly, Non Tender, Soft Rectal: Deferred Back: Normal Inspection, No CVA Tenderness, No Vertebral Tenderness Extremity: Normal Capillary Refill, Normal Inspection, Normal Range of Motion, Non Tender, No Calf Tenderness, No Pedal Edema Neurologic/Psychiatric: Alert, Oriented x3, No Motor/Sensory Deficits, Normal Mood/Affect, cattyman II-XII Norm as Tested Skin: Normal Color, Warm/Dry Lymphatic: No Adenopathy Results Lab Laboratory Tests 01/28/20 03:15: White Blood Count 7.5, Red Blood Count 5.36, Hemoglobin 15.3, Hematocrit 47, Mean Corpuscular Volume 87, Mean Corpuscular Hemoglobin 29, Mean Corpuscular Hemoglobin Concent 33, Red Cell Distribution Width 14.8H, Platelet Count 264, Mean Platelet Volume 10.5H, Prothrombin Time 32.0H, INR Comment 3.1H, Sodium Level 140, Potassium Level 4.1, Chloride Level 106, Carbon Dioxide Level 23, Anion Gap 11, Blood Urea Nitrogen 17, Creatinine 0.85, Estimat Glomerular Filtration Rate > 60, BUN/Creatinine Ratio 20, Glucose Level 156H, Calcium Level 9.1, Magnesium Level 1.9 Microbiology 01/26/20 MRSA Screen - Final, Complete MRSA not isolated Assessment/Plan Assessment/Plan Admission Dx A-FIB -ACUTE WITH HISTORY OF BIATRIAL ABLATION IN 04/2017 -CONSULTED DR [facility]ARRAGAN [facility] -DOE DIAZ, AMIODARONE, XARELTO -MONITOR DIABETES -CONTINUE HOME MEDICATIONS -PT DUE FOR HER TRULICITY INJECTION TOMORROW -PT NPO STATUS CURRENTLY -HOLD PRE MEAL GLIPIZIDE -MONITOR BLOOD GLUCOSE HYPOTHYROIDISM -CONTINUE LEVOTHYROXINE 75MCG Assessment and Plan A-FIB -ACUTE WITH HISTORY OF BIATRIAL ABLATION IN 04/2017 -CONSULTED DR PAT CARDIOLOGY -DOE DIAZ, AMIODARONE, XARELTO -PERSISTENT A-FIB WILL LIKELY PERFORM CARDIOVERSION TODAY -MONITOR -HISTORY OF MEDICATION INTOLERANCE DUE TO STOMACH BLEEDS, WILL NOT BE ABLE TO CONTINUE ORAL DILTIAZEM -PATIENT REPORTS USING DIGOXIN IN THE PAST SUCCESSFULLY DIABETES -CONTINUE HOME MEDICATIONS -DUE FOR HER TRULICITY INJECTION TODAY -NPO STATUS CURRENTLY -HOLD PRE MEAL GLIPIZIDE -MONITOR BLOOD GLUCOSE HYPOTHYROIDISM -CONTINUE LEVOTHYROXINE 75MCG Admission Dx A-FIB -ACUTE WITH HISTORY OF BIATRIAL ABLATION IN 04/2017 -CONSULTED DR BARRAGAN [facility] -DOE DIAZ, AMIODARONE, XARELTO -MONITOR DIABETES -CONTINUE HOME MEDICATIONS -PT DUE FOR HER TRULICITY INJECTION TOMORROW -PT NPO STATUS CURRENTLY -HOLD PRE MEAL GLIPIZIDE -MONITOR BLOOD GLUCOSE HYPOTHYROIDISM -CONTINUE LEVOTHYROXINE 75MCG Clinical Quality Measures Admission Status Admission Dx A-FIB -ACUTE WITH HISTORY OF BIATRIAL ABLATION IN 04/2017 -CONSULTED DR BARRAGAN [facility] -DOE DIAZ, AMIODARONE, XARELTO -MONITOR DIABETES -CONTINUE HOME MEDICATIONS -PT DUE FOR HER TRULICITY INJECTION TOMORROW -PT NPO STATUS CURRENTLY -HOLD PRE MEAL GLIPIZIDE -MONITOR BLOOD GLUCOSE HYPOTHYROIDISM -CONTINUE LEVOTHYROXINE 75MCG DVT/VTE Risk/Contraindication: Risk Factor Score Per Nursin RFS Level Per Nursing on Admit: 4+=Very High MICHAEL SILVA MED STUDEN Jan 28, 2020 08:11
[2020-01-28] MEDS ORDERED: proPOfol 200 MG/20 ML (DIPRIVAN) VIAL IV ONE (08:26)
[2020-01-28] MEDS ORDERED: NS IV 500 ML 500 ML IV SCH (08:30)
[2020-01-28] MEDS ORDERED: AMIO400T5 PO (09:18)
--- NOTE | 2020-01-28 09:18 | NUR ---
0825 CARDIOVERSION COMPLETED, TIME OUT NOTED, SEDATION PER ANESTHESIA,02 PLACED WITH C02 MONITOR AT 2 LITERS PER NC, PT DEFIBRILLATED AT [address] PAT VERBAL INSTRUCTIONS, PT IMMEDIATELY IN SINUS RHYTHM, NOTED TO BE SINUS BRADYCARDIA. PT TOLERATED WELL. VSS PT AWOKE WITHIN 5 MIN OF PROCEDURE. CALL LIGHT AND OTHER PERSONAL ITEMS WITHIN REACH. WILL CONTINUE TO MONITOR.
--- NOTE | 2020-01-28 09:29 | Discharge Summary ---
Diagnosis/Chief Complaint Date of Admission Jan 26, 2020 at 17:40 Date of Discharge Reason Hospital Visit PT IS WELL KNOWN TO ME FROM CLINIC. SHE PRESENTED TO THE HOSPITAL FOR AFIB WITH HEART RATE ELEVATED IN THE 130'S. SHE DENIES CHEST PAIN, SHE HAS CHRONIC SHORTNESS OF BREATH DUE TO ASTHMA. SHE DENIES NAUSEA, DIZZINESS, CHEST PAIN. Discharge Summary Discharge Physical Examination Allergies: Coded Allergies: azithromycin (Verified Allergy, Unknown, 06/23/12) cephalexin (Verified Allergy, Unknown, 04/23/06) levofloxacin (Verified Allergy, Unknown, 06/23/12) meloxicam (Verified Allergy, Unknown, 06/23/12) metoprolol (Verified Allergy, Unknown, NECK SPASMS, 10/18/16) metronidazole (Verified Allergy, Unknown, 06/23/12) morphine (Verified Allergy, Unknown, 04/23/06) theophylline (Verified Allergy, Unknown, 04/23/06) prednisone (Verified Adverse Reaction, Intermediate, STOMACH BLEED, 10/19/15) norfloxacin (Verified Adverse Reaction, Unknown, GI INTOLERANCE, 09/11/07) trovafloxacin (Verified Adverse Reaction, Unknown, GI INTOLERANCE, 09/11/07) Vitals & I&Os Vital Signs Date Time Temp Pulse Resp B/P (MAP) Pulse Ox O2 Delivery O2 Flow Rate FiO2 01/28/20 08:00 97 Room Air 01/28/20 07:39 36.6 01/28/20 06:00 86 12 126/65 (85) Hospital Course Pending Labs Laboratory Tests 01/28/20 03:15: White Blood Count 7.5, Red Blood Count 5.36, Hemoglobin 15.3, Hematocrit 47, Mean Corpuscular Volume 87, Mean Corpuscular Hemoglobin 29, Mean Corpuscular Hemoglobin Concent 33, Red Cell Distribution Width 14.8, Platelet Count 264, Mean Platelet Volume 10.5, Prothrombin Time 32.0, INR Comment 3.1, Sodium Level 140, Potassium Level 4.1, Chloride Level 106, Carbon Dioxide Level 23, Anion Gap 11, Blood Urea Nitrogen 17, Creatinine 0.85, Estimat Glomerular Filtration Rate > 60, BUN/Creatinine Ratio 20, Glucose Level 156, Calcium Level 9.1, Magnesium Level 1.9 Discharge Instructions to patient/family Please see electronic discharge instructions given to patient. Discharge Medications Reviewed and agree with Discharge Medication list on patient's Discharge Instruction sheet Clinical Quality Measures DVT/VTE Risk/Contraindication: Risk Factor Score Per Nursin RFS Level Per Nursing on Admit: 4+=Very High JUAN FRANCISCO VEGA MD Jan 28, 2020 09:29
--- NOTE | 2020-01-28 09:33 | Discharge Inst-Simple/Standard ---
Discharge Inst-Standard Reconcile Patient Problems Problems Reviewed?: Yes Discharge Medications New, Converted or Re-Newed RX: Transmitted to Pharmacy Patient Instructions/Follow Up Plan of Care/Instructions/FU: 1 wk by telemedicine with [address]. mchugh [address] cerda Activity as Tolerated: Yes Discharge Diet: ADA Diet Medication List: Active Scripts Active Amiodarone HCl 400 Mg Tablet 400 Mg PO BID Take 400mg twice a day for 7 days; then take 400mg once a day Proair Hfa (Albuterol Sulfate) 1 Puff Puff 2 Puff IH Q4H 30 Days run through 340b savings plan (#3 inhalers) Advair Hfa 115-21 Mcg Inhaler (Fluticasone/Salmeterol) 12 Gm Hfa.aer.ad 1 Puff IH BID 90 Days run through 340b plan (3 month supply) Xarelto Tablet (Rivaroxaban) 20 Mg Tablet 20 Mg PO 1700 90 Days RUN THROUGH 340B PROGRAM (#90) Reported Fluticasone-Salmeterol 113-14 (Fluticasone/Salmeterol) 1 Each Aer.pow.ba 1 Puff PO BID PRN Symbicort 160-4.5 Mcg Inhaler (Budesonide/Formoterol Fumarate) 10.2 Gm Hfa.aer.ad 2 Puff IH BID PRN [Vitamin B] 1 Unit PO DAILY Trulicity (Dulaglutide) 0.75 Mg/0.5 Ml Pen.injctr 0.75 Mg IJ SUNDAY Glipizide 5 Mg Tablet 5 Mg PO BID Levothyroxine Sodium 75 Mcg Tablet 75 Mcg PO DAILY Systane 0.3-0.4% Eye Drops (Propylene Glycol/Peg 400) 15 Ml Drops 2 Drops OU QID PRN Lab results: Laboratory Tests Test 01/28/20 03:15 Range/Units White Blood Count 7.5 4.3-11.0 10^3/uL Red Blood Count 5.36 4.35-5.85 10^6/uL Hemoglobin 15.3 11.5-16.0 G/DL Hematocrit 47 35-52 % Mean Corpuscular Volume 87 80-99 FL Mean Corpuscular Hemoglobin 29 25-34 PG Mean Corpuscular Hemoglobin Concent 33 32-36 G/DL Red Cell Distribution Width 14.8 H 10.0-14.5 % Platelet Count 264 130-400 10^3/uL Mean Platelet Volume 10.5 H 7.4-10.4 FL Prothrombin Time 32.0 H 12.2-14.7 SEC INR Comment 3.1 H 0.8-1.4 Sodium Level 140 135-145 MMOL/L Potassium Level 4.1 3.6-5.0 MMOL/L Chloride Level 106 98-107 MMOL/L Carbon Dioxide Level 23 21-32 MMOL/L Anion Gap 11 5-14 MMOL/L Blood Urea Nitrogen 17 7-18 MG/DL Creatinine 0.85 0.60-1.30 MG/DL Estimat Glomerular Filtration Rate > 60 BUN/Creatinine Ratio 20 Glucose Level 156 H 70-105 MG/DL Calcium Level 9.1 8.5-10.1 MG/DL Magnesium Level 1.9 1.6-2.4 MG/DL My orders: Orders - JUAN FRANCISCO MCHUGH MD Glipizide Tablet (Glucotrol Tablet) (01/27/20 21:00) Levothyroxine Tablet (Synthroid Tablet) (01/27/20 11:00) Home Sleep Test Unattended (01/27/20 10:57) Attending Discharge Inpt/Inobs (01/28/20 09:30) JUAN FRANCISCO MCHUGH MD Jan 28, 2020 09:33
--- NOTE | 2020-01-28 11:09 | Anesthesia-General Post-Op ---
MAC Patient Condition Mental Status/LOC: Same as Preop Cardiovascular: Satisfactory Nausea/Vomiting: Absent Respiratory: Satisfactory Pain: Controlled Complications: Absent Post Op Complications Complications None Follow Up Care/Instructions Patient Instructions None needed. Anesthesiology Discharge Order Discharge Order Patient is doing well, no complaints, stable vital signs, no apparent adverse anesthesia problems. No complications reported per nursing. JARETT MCKNIGHT CRNA Jan 28, 2020 11:09
--- NOTE | 2020-01-28 16:35 | Progress Note - Cardiology ---
Cardiology SOAP Progress Note Subjective: No cp or syncope or shortness of breath at rest No focal weakness Some gen weakness Continuing palp this am. Provided consent for elec CV. Done. Converted to NSR Objective: I&O/Vital Signs 01/28/20 01/28/20 01/28/20 01/28/20 05:00 06:00 06:43 07:00 Pulse 76 86 86 94 Resp 19 12 13 B/P (MAP) 106/75 (85) 126/65 (85) 112/82 (92) Pulse Ox 96 97 97 O2 Delivery Room Air Room Air Room Air 01/28/20 01/28/20 01/28/20 01/28/20 07:39 08:00 08:00 09:00 Temp 36.6 Pulse 103 54 Resp 41 16 B/P (MAP) 100/69 (79) 124/70 (88) Pulse Ox 96 97 99 O2 Delivery Room Air Room Air Room Air 01/28/20 01/28/20 10:00 11:20 Temp 36.6 Pulse 60 60 Resp 26 26 B/P (MAP) 117/76 (90) 117/76 Pulse Ox 98 98 O2 Delivery Room Air Room Air 01/28/20 00:00 Intake Total 1765 ml Output Total 1200 ml Balance 565 ml Weight (Pounds): 160 Weight (Ounces): 5.0 Weight (Calculated Kilograms): 72.308506 Constitutional: AAO x 3, well-developed, well-nourished Respiratory: No accessory muscle use, No respiratory distress; chest expansion is symmetric, chest is bilaterally symmetric, lungs clear to auscultation Cardiovascular: irregularly irregular, S1 and S2 Gastrointestional: No tender; soft, round, audible bowel sounds Extremities: no lower extremity edema bilateral Neurologic/Psychiatric: oriented x 3, other (moves all limbs equally) Skin: No rash on exposed areas, No ulcerations on exposed areas Results/Procedures: Labs Laboratory Tests 01/28/20 03:15: White Blood Count 7.5, Red Blood Count 5.36, Hemoglobin 15.3, Hematocrit 47, Mean Corpuscular Volume 87, Mean Corpuscular Hemoglobin 29, Mean Corpuscular Hemoglobin Concent 33, Red Cell Distribution Width 14.8H, Platelet Count 264, Mean Platelet Volume 10.5H, Prothrombin Time 32.0H, INR Comment 3.1H, Sodium Level 140, Potassium Level 4.1, Chloride Level 106, Carbon Dioxide Level 23, Anion Gap 11, Blood Urea Nitrogen 17, Creatinine 0.85, Estimat Glomerular Filtration Rate > 60, BUN/Creatinine Ratio 20, Glucose Level 156H, Calcium Level 9.1, Magnesium Level 1.9 Microbiology 01/26/20 MRSA Screen - Final, Complete MRSA not isolated Laboratory Tests 01/27/20 03:31 01/28/20 03:15 A/P: Assessment: A-fib with RVR, converted to NSR with elec CV on 01/28/20 H/O PAF, ablated by Dr Zapien at [facility] in April 2018. ILR has reached end of battery life (managed by Dr. Aguilar and Dr. Zapien) Coronary artery disease: h/o LAD stent 3.5x15 mm Resolute. Last cardiac catheterization was done in November 2017 showing patent stents in the proximal LAD with small vessel disease distally with normal left ventricular end-diastolic pr essure. [id number] score is 4, currently on Xarelto. Echocardiogram was done in November 2017 showing normal LV size with EF 55-65 percent, mildly dilated left atrium measuring 4.45 cm, right atrial dilatation, calcified mitral valve with mild MR, aortic valve sclerosis, no aortic stenosis, moderate TR, PA 50-55 mmHg. Hypertension Hyperlipidemia, unable to tolerate simvastatin Mild bilateral carotid stenosis, last ultrasound was done in April 2018 History of GI bleed, intolerance to certain oral anticoagulants, including aspirin and Plavix and Coumadin (as documented by Dr Aguilar) Chronic anemia - followed by PCP Hypothyroidism, Monitored and managed by pcp Pulmonary nodule, noted on CT scan, followed by Dr. Mcmullen COPD, bronchial asthma, allergy, followed by Dr. Mcmullen Diabetes mellitus, managed and followed by pcp Anxiety, management per PCP Multiple medication intolerances including oral diltiazem and BB Plan: Amiodarone 400 bid for 7 days, then 400 daily; f/u with Dr Aguilar in 2 weeks Continue rivaroxaban for stroke prophylaxis (chronically on it and has been c ompliant) Won't be able to take oral diltiazem Discussed her case with Dr Elaine this am LARON PAT MD FACP [facility] Jan 28, 2020 16:35
== END 2020-01-28 11:15 | disposition home or self-care (01) | DRG 310 ==
LOC: EDUNIT# 15:03 → ER 15:05 → ICU 17:40
PROVIDERS: ADMIT Internal Medicine Interventional Cardiology; ATTEND Internal Medicine Interventional Cardiology
DX: I48.91 Unspecified atrial fibrillation (principal); I25.10 Atherosclerotic heart disease of native coronary artery without angina pectoris; I08.1 Rheumatic disorders of both mitral and tricuspid valves; I70.0 Atherosclerosis of aorta; I65.23 Occlusion and stenosis of bilateral carotid arteries; D64.9 Anemia, unspecified; R91.1 Solitary pulmonary nodule; E11.9 Type 2 diabetes mellitus without complications; J44.9 Chronic obstructive pulmonary disease, unspecified; J30.2 Other seasonal allergic rhinitis; F41.9 Anxiety disorder, unspecified; E89.0 Postprocedural hypothyroidism; E78.00 Pure hypercholesterolemia, unspecified; K21.9 Gastro-esophageal reflux disease without esophagitis; M06.9 Rheumatoid arthritis, unspecified; M19.91 Primary osteoarthritis, unspecified site; Z95.5 Presence of coronary angioplasty implant and graft; Z79.01 Long term (current) use of anticoagulants; Z86.711 Personal history of pulmonary embolism; Z86.718 Personal history of other venous thrombosis and embolism; Z96.653 Presence of artificial knee joint, bilateral
CPT/HCPCS: 36415; 71045; 80048; 80053; 82550; 82553; 82962; 83735; 83880; 84100; 84443; 84484; 85025; 85027; 85610; 85730; 87081; 93005; 93041

== ENCOUNTER → 2021-06-06 | Outpatient (CLI) | payer MEDICARE, OTHER ==
[~2021-06-06] MED LIST changes: +ALPR.25T PO; -ALPR0.254 PO; -AMIO200T4 PO; +AMIO200T65 PO; +AMIO400T5 PO; +DULA0.75 IJ; +FLUT12AE4 IH; +FLUT1AER4 PO; +MONT-40 PO; -MONT10TA26 PO; +RT-ALBUINH IH; +VITAMIN B PO
== END ==
LOC: CARD 08:42
PROVIDERS: ATTEND Internal Medicine Cardiovascular Disease
DX: I11.9 Hypertensive heart disease without heart failure (principal); I08.0 Rheumatic disorders of both mitral and aortic valves
CPT/HCPCS: 93306

== ENCOUNTER 2021-07-20 11:18 | Observation (INO) | payer MEDICARE, OTHER ==
[~2021-07-20] VITALS: Ht 154 cm; Wt 72.4 kg
[2021-07-20 12:08] LABS: POTASSIUM 3.9 MMOL/L (3.6-5.0)
[2021-07-20 12:09] LABS: BASOPHILS # (AUTO) 0.1 10^3/uL (0.0-0.1); BASOPHILS % (AUTO) 1 % (0-10); CALCIUM 9.6 MG/DL (8.5-10.1); EOSINOPHILS # (AUTO) 0.2 10^3/uL (0.0-0.3); EOSINOPHILS % (AUTO) 2 % (0-10); HEMATOCRIT 52 % (35-52); HEMOGLOBIN 16.7 g/dL (11.5-16.0); LYMPHOCYTES # (AUTO) 1.4 10^3/uL (1.0-4.0); LYMPHOCYTES % (AUTO) 18 % (12-44); MEAN CORPUSCULAR HEMOGLOBIN 29 pg (25-34); MEAN CORPUSCULAR HGB CONC 32 g/dL (32-36); MEAN CORPUSCULAR VOLUME 89 fL (80-99); MEAN PLATELET VOLUME 10.4 fL (9.0-12.2); MONOCYTES # (AUTO) 0.6 10^3/uL (0.0-1.0); MONOCYTES % (AUTO) 7 % (0-12); NEUTROPHILS # (AUTO) 5.6 10^3/uL (1.8-7.8); NEUTROPHILS % (AUTO) 71 % (42-75); PLATELET COUNT 290 10^3/uL (130-400); WHITE BLOOD COUNT 7.9 10^3/uL (4.3-11.0)
[2021-07-20 12:14] LABS: CREATININE SERUM 0.79 MG/DL (0.60-1.30)
[2021-07-20] MEDS ORDERED: NS IV 1000 ML 1,000 ML IV SCH (12:30)
[2021-07-20 13:35] LABS: BILIRUBIN,URINE NEGATIVE (NEGATIVE); CLARITY,URINE CLEAR; COLOR,URINE YELLOW; GLUCOSE, URINE (UA) NEGATIVE (NEGATIVE); KETONES,URINE NEGATIVE (NEGATIVE); LEUKOCYTE ESTERASE ,URINE NEGATIVE (NEGATIVE); NITRITE,URINE NEGATIVE (NEGATIVE); PROTEIN,URINE NEGATIVE (NEGATIVE)
--- NOTE | 2021-07-20 13:50 | ED General ---
General Chief Complaint: Cardiac/General Problems Stated Complaint: AFIB Nursing Triage Note: PT AMB TO [facility] 2 WITH COMPLAINT OF POSSIBLE AFIB. STATES CALLED DR AGUILAR AND WAS INSTRUCTED TO COME TO ER. TAKES XARELTO. STATES WAS EXPOSED TO COVID OVER THE WEEKEND BUT DENIES SYMPTOMS. Source of Information: Patient Exam Limitations: No Limitations History of Present Illness Date Seen by Provider: Jul 20, 2021 Time Seen by Provider: 11:30 Initial Comments Patient is an 81-year-old female with a history of atrial fibrillation status post ablation and most recently cardioversion in January 2021, followed by Dr. Aguilar. Woke up this morning to take her blood pressure and noted that her pulse was in the 130s. Patient is completely asymptomatic of her rapid heartbeat. She states she called Dr. Aguilar's office, he told her that she was likely in A. fib and instructed her to come to the emergency department. Patient denies any chest pain, shortness of breath. No fevers, chills or congestion. No diarrhea or urinary difficulties. Has not missed or skipped any of her morning me dications. Did have an injection of one of her diabetes medications yesterday that she believes was incompletely administered so she subsequently gave herself an additional half dose. She did eat some candy last night, thinks that her blood sugar might be a little higher than normal this morning. She was also exposed to her son-in-law over the weekend who was staying with her and her , he tested positive for COVID on Sunday. The patient is completely vaccinated with a booster in April 2021. No symptoms of illness. Resting comfortably, no acute distress, good blood pressure pulse is 133. All other review of systems reviewed and negative except as stated Timing/Duration: 1-3 Hours Severity: Mild Associated Systoms: Denies Symptoms Allergies and Home Medications Allergies Coded Allergies: azithromycin (Verified Allergy, Unknown, 06/23/12) cephalexin (Verified Allergy, Unknown, 04/23/06) levofloxacin (Verified Allergy, Unknown, 06/23/12) meloxicam (Verified Allergy, Unknown, 06/23/12) metoprolol (Verified Allergy, Unknown, NECK SPASMS, 10/18/16) metronidazole (Verified Allergy, Unknown, 06/23/12) morphine (Verified Allergy, Unknown, 04/23/06) theophylline (Verified Allergy, Unknown, 04/23/06) prednisone (Verified Adverse Reaction, Intermediate, STOMACH BLEED, 10/19/15) norfloxacin (Verified Adverse Reaction, Unknown, GI INTOLERANCE, 09/11/07) trovafloxacin (Verified Adverse Reaction, Unknown, GI INTOLERANCE, 09/11/07) Patient Home Medication List Home Medication List Reviewed: Yes Albuterol Sulfate (Proair Hfa) 1 Puff Puff, 2 PUFF IH Q4H Prescribed by: JUAN FRANCISCO ELAINE on 01/27/20 143 Amiodarone HCl (Amiodarone HCl) 400 Mg Tablet, 400 MG PO BID Prescribed by: DELICIA JONES on 01/28/20 0918 Dulaglutide (Trulicity) 0.75 Mg/0.5 Ml Pen.injctr, 0.75 MG IJ SUNDAY, (Reported) Entered as Reported by: ERIN QUINTEROS on 01/27/20 09 Fluticasone/Salmeterol (Advair Hfa 115-21 Mcg Inhaler) 12 Gm Hfa.aer.ad, 1 PUFF IH BID Prescribed by: JUAN FRANCISCO ELAINE on 01/27/20 143 Glipizide (Glipizide) 5 Mg Tablet, 5 MG PO BID, (Reported) Entered as Reported by: ERIN QUINTEROS on 01/27/20 09 Levothyroxine Sodium (Levothyroxine Sodium) 75 Mcg Tablet, 75 MCG PO DAILY, (Reported) Entered as Reported by: CAMRON KEMP on 10/10/18 1300 Propylene Glycol/Peg 400 (Systane 0.3-0.4% Eye Drops) 15 Ml Drops, 2 DROPS OU QID PRN for DRY EYES, (Reported) Entered as Reported by: IDALIA CANALES on 09/13/17 0850 Rivaroxaban (Xarelto Tablet) 20 Mg Tablet, 20 MG PO 1700 Prescribed by: JUAN FRANCISCO ELAINE on 01/27/20 1435 [Vitamin B] , 1 UNIT PO DAILY, (Reported) Entered as Reported by: ERIN QUINTEROS on 01/27/20 09 Review of Systems Review of Systems Constitutional: see HPI EENTM: no symptoms reported Respiratory: no symptoms reported Cardiovascular: no symptoms reported Gastrointestinal: no symptoms reported Genitourinary: no symptoms reported : No Musculoskeletal: no symptoms reported Skin: no symptoms reported Psychiatric/Neurological: Anxiety All Other Systems Reviewed Negative Unless Noted: Yes Past Jwqvhts-Ezjdep-Ogehwv Hx Patient Social History Tobacco Use?: No Use of E-Cig and/or Vaping dev: No Substance use?: No Alcohol Use?: No Pt feels they are or have been: No Immunizations Up To Date Tetanus Booster (TDap): Unknown Influenza Vaccine Up-to-Date: Yes; Up-to-Date First/Initial COVID19 Vaccinat: SPRING 2020 Second COVID19 Vaccination Gera: SPRING 2020 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: [employer] Seasonal Allergies Seasonal Allergies: Yes Past Medical History Surgeries: Yes (R CTR;SINUS;R FOOT;BILAT TKR;CARDIAC ABLATION;CARDIAC CATH- STENTS X1;LINQ ) Cardiac, Coronary Stent, Gallbladder, Hysterectomy, Orthopedic, Thyroidectomy Respiratory: Yes Asthma, Pulmonary Embolism, COPD Currently Using CPAP: No Currently Using BIPAP: No Cardiac: Yes Atrial Fibrillation, High Cholesterol, Hypertension Neurological: No Reproductive Disorders: No Female Reproductive Disorders: Denies Sexually Transmitted Disease: No HIV/AIDS: No Genitourinary: No Gastrointestinal: No Gastroesophageal Reflux, Gastrointestinal Bleed Musculoskeletal: No Arthritis, Rheumatoid Arthritis Endocrine: Yes Diabetes, Non-Insulin dep HEENT: No Cataract Loss of Vision: Denies Hearing Impairment: Denies Cancer: No Psychosocial: Yes Anxiety Integumentary: No Blood Disorders: No Adverse Reaction/Blood Tranf: No (HAS HAD BLOOD WITH NO REACTION) Family Medical History Arthritis 19 FATHER G8 SISTER Congenital heart disease 19 MOTHER G8 BROTHER Diabetes mellitus G8 BROTHER FH: CHF (congestive heart failure) 19 FATHER 19 MOTHER G8 BROTHER FH: CVA (cerebrovascular accident) 19 MOTHER G8 SISTER FH: hypercholesterolemia FH: musculoskeletal disease 19 FATHER G8 SISTER Glaucoma G8 SISTER Hypercholesterolemia Hypertension 19 MOTHER G8 SISTER Myocardial infarction G8 BROTHER Heart Disease, Diabetes, Hypertension PSH: -1965-UTERINE SUSPENSION -1975-HYSTERECTOMY -1978-RIGHT CARPAL TUNNEL -1984-CHOLECYSTECTOMY -1987-SINUS SURGERY/POLYP REMOVAL -1991-RIGHT FOOT SURGERY -2006-RIGHT THYROIDECTOMY -2007-LEFT TOTAL KNEE REPLACEMENT -2011-CARDIAC CATH--STENT X 1 AND ANGIOPLASTY -2012-BILATERAL CATARACT SURGERIES -REVEAL LINQ DEVICE IMPLANTED -04/2018-CARDIAC ABLATION AT FOR ATRIAL FIBRILLATION 04/2018-HAND SURGERY Physical Exam Vital Signs Vital Signs - First Documented 07/20/21 11:24 Pulse 134 Resp 20 B/P (MAP) 147/89 (108) Pulse Ox 97 O2 Delivery Room Air Capillary Refill : Less Than 3 Seconds Height, Weight, BMI Height: 5'1.00" Weight: 160lbs. 5.0oz. [id number]; 31.00 BMI Method:Stated General Appearance: No Apparent Distress, WD/WN, Anxious Eyes: Bilateral Eye Normal Inspection, Bilateral Eye PERRL, Bilateral Eye EOMI HEENT: PERRL/EOMI Neck: Normal Inspection Respiratory: Lungs Clear, Normal Breath Sounds, No Accessory Muscle Use, No Res piratory Distress Cardiovascular: Regular Rate, Rhythm, Tachycardia (133) Gastrointestinal: Normal Bowel Sounds, Non Tender, Soft Extremity: Normal Capillary Refill, Normal Inspection, Normal Range of Motion, Non Tender, No Calf Tenderness, No Pedal Edema Neurologic/Psychiatric: Alert, Oriented x3, No Motor/Sensory Deficits, Normal Mood/Affect, drive man II-XII Norm as Tested Skin: Normal Color, Warm/Dry Progress/Results/Core Measures Suspected Sepsis SIRS Temperature: Pulse: 134 Respiratory Rate: 20 Laboratory Tests 07/20/21 11:40: White Blood Count 7.9 Blood Pressure 147 /89 Mean: 108 Laboratory Tests 07/20/21 11:40: Creatinine 0.79, Platelet Count 290 Results/Orders Lab Results Laboratory Tests Test 07/20/21 11:40 07/20/21 12:14 07/20/21 13:27 Range/Units White Blood Count 7.9 4.3-11.0 10^3/uL Red Blood Count 5.80 H 3.80-5.11 10^6/uL Hemoglobin 16.7 H 11.5-16.0 g/dL Hematocrit 52 35-52 % Mean Corpuscular Volume 89 80-99 fL Mean Corpuscular Hemoglobin 29 25-34 pg Mean Corpuscular Hemoglobin Concent 32 32-36 g/dL Red Cell Distribution Width 13.8 10.0-14.5 % Platelet Count 290 130-400 10^3/uL Mean Platelet Volume 10.4 9.0-12.2 fL Immature Granulocyte % (Auto) 1 % Neutrophils (%) (Auto) 71 42-75 % Lymphocytes (%) (Auto) 18 12-44 % Monocytes (%) (Auto) 7 0-12 % Eosinophils (%) (Auto) 2 0-10 % Basophils (%) (Auto) 1 0-10 % Neutrophils # (Auto) 5.6 1.8-7.8 10^3/uL Lymphocytes # (Auto) 1.4 1.0-4.0 10^3/uL Monocytes # (Auto) 0.6 0.0-1.0 10^3/uL Eosinophils # (Auto) 0.2 0.0-0.3 10^3/uL Basophils # (Auto) 0.1 0.0-0.1 10^3/uL Immature Granulocyte # (Auto) 0.0 0.0-0.1 10^3/uL Sodium Level 140 135-145 MMOL/L Potassium Level 3.9 3.6-5.0 MMOL/L Chloride Level 104 98-107 MMOL/L Carbon Dioxide Level 23 21-32 MMOL/L Anion Gap 13 5-14 MMOL/L Blood Urea Nitrogen 14 7-18 MG/DL Creatinine 0.79 0.60-1.30 MG/DL Estimat Glomerular Filtration Rate 70 BUN/Creatinine Ratio 18 Glucose Level 166 H 70-105 MG/DL Calcium Level 9.6 8.5-10.1 MG/DL Influenza Type A (RT-PCR) Not Detected Not Detecte Influenza Type B (RT-PCR) Not Detected Not Detecte SARS-CoV-2 RNA (RT-PCR) Not Detected Not Detecte Urine Color YELLOW Urine Clarity CLEAR Urine pH 6.0 5-9 Urine Specific [place] 1.020 1.016-1.022 Urine Protein NEGATIVE NEGATIVE Urine Glucose (UA) NEGATIVE NEGATIVE Urine Ketones NEGATIVE NEGATIVE Urine Nitrite NEGATIVE NEGATIVE Urine Bilirubin NEGATIVE NEGATIVE Urine Urobilinogen 0.2 < = 1.0 MG/DL Urine Leukocyte Esterase NEGATIVE NEGATIVE Urine RBC (Auto) NEGATIVE NEGATIVE Urine RBC NONE /HPF Urine WBC 0-2 /HPF Urine Squamous Epithelial Cells 5-10 /HPF Urine Crystals NONE /LPF Urine Bacteria NEGATIVE /HPF Urine Casts NONE /LPF Urine Mucus NEGATIVE /LPF Urine Culture Indicated NO My Orders Orders - GUY PÉREZ MD Ekg Tracing (07/20/21 11:55) Covid 19 Inhouse Test (07/20/21 11:55) Cbc With Automated Diff (07/20/21 11:55) Basic Metabolic Panel (07/20/21 11:55) Influenza A And B By Pcr (07/20/21 11:55) Isolation Central Supply Req (07/20/21 11:55) Ns Iv 1000 Ml (Sodium Chloride 0.9%) (07/20/21 12:30) Ua Culture If Indicated (07/20/21 13:28) Ekg Tracing (07/20/21 13:39) Adenosine Injection (Adenocard Injection (07/20/21 14:15) Adenosine Injection (Adenocard Injection (07/20/21 14:08) Diltiazem Injection (Cardizem Injection) (07/20/21 14:17) Diltiazem Drip Pre-Mix (Cardizem Drip Pr (07/20/21 14:18) Diltiazem Injection (Cardizem Injection) (07/20/21 14:30) Diltiazem Drip Pre-Mix (Cardizem Drip Pr (07/20/21 14:30) Diltiazem Drip Pre-Mix (Cardizem Drip Pr (07/20/21 14:20) Medications Given in ED Current Medications Medications Dose Ordered Sig/Mary Route Start Time Stop Time Status Last Admin Dose Admin Adenosine 6 mg ONCE ONCE IV 07/20/21 14:15 07/20/21 14:16 DC 07/20/21 14:15 6 MG Diltiazem HCl 10 mg ONCE ONCE IVP 07/20/21 14:30 07/20/21 14:31 DC 07/20/21 14:22 10 MG Vital Signs/I&O 07/20/21 11:24 Pulse 134 Resp 20 B/P (MAP) 147/89 (108) Pulse Ox 97 O2 Delivery Room Air Capillary Refill : Less Than 3 Seconds Blood Pressure Mean: 108 Progress Note : Time: 14:19 Progress Note Patient was given 6 mg of adenosine with Dr. Aguilar present in the ED. She did slow down long enough for him to assess a an atrial dysrhythmia. Recommends 10 mg Cardizem bolus with a 10 mg an hour drip. Will be admitted observation to [facility] primary care doctor, Dr. Elaine. ECG Initial ECG Impression Date: Jul 20, 2021 Initial ECG Impression Time: 11:38 Initial ECG Rate: 131 Initial ECG Rhythm: Normal Sinus, S.Tach Initial ECG Intervals OR interval 121, QRS 95, QTc 464 No ectopy. Is 2:1 a flutter pattern no ST segment elevation or depression, Q waves over the precordium as well as the inferior leads Departure Communication (Admissions) Time/Spoke to Admitting Phy: 14:[address] elaine - Dr Aguilar to admit Time/Spoke to Consulting Phy: 14:[address] Aguilar; wants to try adenosine and will be down in 10-15 minutes Impression Primary Impression: Atrial flutter with rapid ventricular response Additional Impression: Chronic anticoagulation Disposition: ADMITTED INPATIENT Condition: Stable Admissions Decision to Admit Reason: Admit from ER (General) Decision to Admit/Date: Jul 20, 2021 Time/Decision to Admit Time: 14:19 Departure-Patient Inst. Referrals: JUAN FRANCISCO ELAINE MD (PCP/Family) Primary Care Physician GUY PÉREZ MD Jul 20, 2021 13:50
[2021-07-20] MEDS ORDERED: ADENOSINE 6 MG/2 ML (ADENOCARD) VIAL IV ONE ×2 (14:08→14:15)
[2021-07-20 14:09] LABS: BACTERIA,URINE NEGATIVE /HPF; WBC,URINE 0-2 /HPF
[2021-07-20] MEDS ORDERED: dilTIAZem DRIP PRE-MIX 0 ML IV ONE (14:18)
[2021-07-20] MEDS ORDERED: dilTIAZem DRIP PRE-MIX 125 ML IV ONE (14:20)
[2021-07-20] MEDS: dilTIAZem DRIP PRE-MIX 125 ML IV SCH (14:22)
--- NOTE | 2021-07-20 14:34 | Consultation-Cardiology ---
HPI-Cardiology Cardiology Consultation Date of Consultation 07/20/21 Date of Admission Time Seen by Provider: 14:29 Indication: Palpitation HPI 81 years old lady with history of paroxysmal atrial fibrillation, hypertension and hyperlipidemia, she contacted me today after having palpitation feeling her heart racing. She was noted to have a heart rate around 130. Came into the e mergency room and noted to have tachycardia, I gave her adenosine and it showed underlying atrial flutter with 2:1 conduction. She denies chest pain. No syncope or near syncopal episode. Patient is fairly anxious. Home Medications & Allergies Allergies: Coded Allergies: azithromycin (Verified Allergy, Unknown, 06/23/12) cephalexin (Verified Allergy, Unknown, 04/23/06) levofloxacin (Verified Allergy, Unknown, 06/23/12) meloxicam (Verified Allergy, Unknown, 06/23/12) metoprolol (Verified Allergy, Unknown, NECK SPASMS, 10/18/16) metronidazole (Verified Allergy, Unknown, 06/23/12) morphine (Verified Allergy, Unknown, 04/23/06) theophylline (Verified Allergy, Unknown, 04/23/06) prednisone (Verified Adverse Reaction, Intermediate, STOMACH BLEED, 10/19/15) norfloxacin (Verified Adverse Reaction, Unknown, GI INTOLERANCE, 09/11/07) trovafloxacin (Verified Adverse Reaction, Unknown, GI INTOLERANCE, 09/11/07) Home Medication List Reviewed: Yes VWM-Miqxag-Ljkpdc Hx Patient Social History Marital Status: Employed/Student: retired 2[employer] Hand Smoke Exposure: No Recent Hopitalizations: No Have you traveled recently?: No Alcohol Use?: No Immunizations Up To Date Tetanus Booster (TDap): Unknown Date of Pneumonia Vaccine: Jul 09, 2016 Date of Influenza Vaccine: Apr 08, 2017 Past Medical History Discussed Family Medical History Significant Family History: Heart Disease, Diabetes, Hypertension Family History: Arthritis 19 FATHER G8 SISTER Congenital heart disease 19 MOTHER G8 BROTHER Diabetes mellitus G8 BROTHER FH: CHF (congestive heart failure) 19 FATHER 19 MOTHER G8 BROTHER FH: CVA (cerebrovascular accident) 19 MOTHER G8 SISTER FH: hypercholesterolemia FH: musculoskeletal disease 19 FATHER G8 SISTER Glaucoma G8 SISTER Hypercholesterolemia Hypertension 19 MOTHER G8 SISTER Myocardial infarction G8 BROTHER Review of Systems-General Review of Systems Constitutional: see HPI EENTM: no symptoms reported Respiratory: no symptoms reported Cardiovascular: no symptoms reported, palpitations Gastrointestinal: no symptoms reported Genitourinary: no symptoms reported : No Musculoskeletal: no symptoms reported Skin: no symptoms reported Psychiatric/Neurological: Anxiety All Other Systems Reviewed Negative Unless Noted: Yes Reviewed Test Results Reviewed Test Results Lab Laboratory Tests Test 07/20/21 11:40 07/20/21 12:14 07/20/21 13:27 Range/Units White Blood Count 7.9 4.3-11.0 10^3/uL Red Blood Count 5.80 H 3.80-5.11 10^6/uL Hemoglobin 16.7 H 11.5-16.0 g/dL Hematocrit 52 35-52 % Mean Corpuscular Volume 89 80-99 fL Mean Corpuscular Hemoglobin 29 25-34 pg Mean Corpuscular Hemoglobin Concent 32 32-36 g/dL Red Cell Distribution Width 13.8 10.0-14.5 % Platelet Count 290 130-400 10^3/uL Mean Platelet Volume 10.4 9.0-12.2 fL Immature Granulocyte % (Auto) 1 % Neutrophils (%) (Auto) 71 42-75 % Lymphocytes (%) (Auto) 18 12-44 % Monocytes (%) (Auto) 7 0-12 % Eosinophils (%) (Auto) 2 0-10 % Basophils (%) (Auto) 1 0-10 % Neutrophils # (Auto) 5.6 1.8-7.8 10^3/uL Lymphocytes # (Auto) 1.4 1.0-4.0 10^3/uL Monocytes # (Auto) 0.6 0.0-1.0 10^3/uL Eosinophils # (Auto) 0.2 0.0-0.3 10^3/uL Basophils # (Auto) 0.1 0.0-0.1 10^3/uL Immature Granulocyte # (Auto) 0.0 0.0-0.1 10^3/uL Sodium Level 140 135-145 MMOL/L Potassium Level 3.9 3.6-5.0 MMOL/L Chloride Level 104 98-107 MMOL/L Carbon Dioxide Level 23 21-32 MMOL/L Anion Gap 13 5-14 MMOL/L Blood Urea Nitrogen 14 7-18 MG/DL Creatinine 0.79 0.60-1.30 MG/DL Estimat Glomerular Filtration Rate 70 BUN/Creatinine Ratio 18 Glucose Level 166 H 70-105 MG/DL Calcium Level 9.6 8.5-10.1 MG/DL Influenza Type A (RT-PCR) Not Detected Not Detecte Influenza Type B (RT-PCR) Not Detected Not Detecte SARS-CoV-2 RNA (RT-PCR) Not Detected Not Detecte Urine Color YELLOW Urine Clarity CLEAR Urine pH 6.0 5-9 Urine Specific [place] 1.020 1.016-1.022 Urine Protein NEGATIVE NEGATIVE Urine Glucose (UA) NEGATIVE NEGATIVE Urine Ketones NEGATIVE NEGATIVE Urine Nitrite NEGATIVE NEGATIVE Urine Bilirubin NEGATIVE NEGATIVE Urine Urobilinogen 0.2 < = 1.0 MG/DL Urine Leukocyte Esterase NEGATIVE NEGATIVE Urine RBC (Auto) NEGATIVE NEGATIVE Urine RBC NONE /HPF Urine WBC 0-2 /HPF Urine Squamous Epithelial Cells 5-10 /HPF Urine Crystals NONE /LPF Urine Bacteria NEGATIVE /HPF Urine Casts NONE /LPF Urine Mucus NEGATIVE /LPF Urine Culture Indicated NO Physical Exam Physical Exam Vital Signs Vital Signs - First Documented 07/20/21 11:24 Pulse 134 Resp 20 B/P (MAP) 147/89 (108) Pulse Ox 97 O2 Delivery Room Air Capillary Refill : Less Than 3 Seconds Height, Weight, BMI Height: 5'1.00" Weight: 160lbs. 5.0oz. [id number]; 31.00 BMI Method:Stated General Appearance: No Apparent Distress, WD/WN, Anxious Eyes: Bilateral Eye Normal Inspection, Bilateral Eye PERRL, Bilateral Eye EOMI HEENT: PERRL/EOMI Neck: Normal Inspection Respiratory: Lungs Clear, Normal Breath Sounds, No Accessory Muscle Use, No Respiratory Distress Cardiovascular: Regular Rate, Rhythm, Tachycardia (133) Gastrointestinal: Normal Bowel Sounds, Non Tender, Soft Back: Normal Inspection, No CVA Tenderness, No Vertebral Tenderness Extremity: Normal Capillary Refill, Normal Inspection, Normal Range of Motion, Non Tender, No Calf Tenderness, No Pedal Edema Neurologic/Psychiatric: Alert, Oriented x3, No Motor/Sensory Deficits, Normal 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 I will start her on Lovenox, Cardizem drip, if she does not convert overnight I am planning to proceed with electrical cardioversion. Patient did not miss or skip her anticoagulation medication. History of Paroxysmal atrial fibrillation, Seen by Dr. Zapien and had ablation in April 2018 and doing well. Was treated with amiodarone prior to the ablation. Had episode A. fib with RVR back in January 2020, underwent cardioversion and has been maintained in sinus rhythm. Linq monitor showed multiple episodes of atrial fibrillation, short-lived, usually less than 1 hour. This episode is persisting longer. I will continue on Cardizem and consider cardioversion in the morning. [id number] score is 4, yearly risk of stroke without oral anticoagulation is 4 percent, currently on Xarelto. Coronary artery disease, History of stent using 3.5x15 mm resolute drug-eluting stent to the LAD expanded to 3.86 mm with excellent results. Cardiac catheterization October 2013 revealed patent stent to the LAD with otherwise moderate disease in the distal LAD. Very small artery distally. Otherwise, no significant obstructive disease. Had an exercise stress echo in October 2015 which showed hypertensive response with normal echocardiographic images with no ischemic changes, unable to tolerate aspirin. Cardiac catheterization was done in November 2017 showing patent stents in the proximal LAD with small vessel disease distally with normal left ventricular end-diastolic pressure. Echocardiogram showed normal LV function with left atrial dilatation, mild MR, moderate TR, PA pressure 50-55 mmHg, We discussed the need for stress test, patient is very hesitant to have a Lexiscan stress test, I doubt that she would be able to walk on a treadmill. I will postpone it until after the next appointment Echocardiogram was done in November 2017 showing normal LV size with EF 55-65 percent, mildly dilated left atrium measuring 4.45 cm, right atrial dilatation, calcified mitral valve with mild MR, aortic valve sclerosis no aortic stenosis, moderate TR, PA 50-55 mmHg. Continue to monitor Hypertension, good control on current medication. Continue to monitor Hyperlipidemia, unable to tolerate simvastatin, continue to monitor lipids Mild bilateral carotid stenosis, continue to monitor History of GI bleed, intolerance to aggressive oral anticoagulations including aspirin and Plavix and Coumadin. Currently maintained on Xarelto. Continue to monitor. Anemia, continue to monitor H&H Hypothyroidism, Monitored and managed by primary care physician Pulmonary nodule, noted on CT scan, was seen by Dr. Mcmullen in the past COPD, bronchial asthma, allergy, was seen and evaluated by Dr. Mcmullen. Currently followed by primary care physician Diabetes mellitus, managed and followed by primary care physician. LEANNA DSOUZA MD Jul 20, 2021 14:34
[2021-07-20] MEDS: ENOXAPARIN 80 MG/0.8 ML (LOVENOX) SYR SC SCH (16:46)
[2021-07-21] VITALS (18 sets, daily range): BP systolic 79–148; BP diastolic 46–75
[2021-07-21] MEDS: dilTIAZem DRIP PRE-MIX 125 ML IV SCH (00:40)
[2021-07-21] MEDS: ENOXAPARIN 80 MG/0.8 ML (LOVENOX) SYR SC SCH (03:26)
[2021-07-21] MEDS ORDERED: glipiZIDE 5 MG (GLUCOTROL) TAB PO SCH (06:30)
[2021-07-21] MEDS ORDERED: LEVOTHYROXINE 75 MCG (LEVOTHROID) TABLET PO SCH (06:30)
[2021-07-21] MEDS ORDERED: NS IV 1000 ML 1,000 ML ONE (07:14)
--- NOTE | 2021-07-21 07:15 | Cardiology Progress Note ---
Subjective Date Seen by Provider: Jul 21, 2021 Time Seen by Provider: 07:14 Subjective/Events-last exam Patient is laying down in bed. Still tachycardic. Blood pressure is better controlled. No chest pain Review of Systems General: No Chills, No Night Sweats, No Fatigue, No Malaise, No Appetite, No Other HEENT: No Head Aches, No Visual Changes, No Eye Pain, No Ear Pain, No Dysphasia, No Sinus Congestion, No Post Nasal Drip, No Sore Throat, No Other Pulmonary: No Dyspnea, No Cough, No Pleuritic Chest Pain, No Other Cardiovascular: No: Chest Pain, Palpitations, Orthopnea, Paroxysmal Noc. Dyspnea, Edema, Lt Headedness, Other Objective-Cardiology Exam Last Set of Vital Signs Vital Signs 07/21/21 07/21/21 03:27 06:00 Temp 36.3 Pulse 124 Resp 20 B/P (MAP) 99/72 Pulse Ox 94 O2 Delivery Room Air I&O Intake and Output 07/21/21 00:00 Intake Total 1300 ml Balance 1300 ml Intake Oral 300 ml IV Total 1000 ml # Voids 3 Daily Weight Change No General: Alert, Oriented X3, Cooperative HEENT: Atraumatic, PERRLA Neck: Supple, No JVD, No Thyromegaly Lungs: Clear to Auscultation, Normal Air Movement Heart: Normal S1, Normal S2, No Murmurs, Other (Tachycardia) Abdomen: Normal Bowel Sounds, Soft, No Tenderness, No Hepatosplenomegaly, No Masses Extremities: No Clubbing, No Cyanosis, No Edema, Normal Pulses, No Tenderness/Swelling Skin: No Rashes, No Breakdown, No Significant Lesion Neuro: Normal Gait, Normal Speech, Strength at 5/5 X4 Ext, Normal Tone, Sensation Intact Psych/Mental Status: Mental Status NL, Mood NL Results Lab Laboratory Tests 07/20/21 11:40 A/P-Cardiology Admission Diagnosis Atrial flutter Tachycardia Coronary artery disease Hypertension Assessment/Plan Atrial flutter with rapid ventricular response, history of paroxysmal atrial fibrillation, multiple episodes in the past. On Cardizem drip and Lovenox at this time, planning for cardioversion today. History of Paroxysmal atrial fibrillation, Seen by Dr. Zapien and had ablation in April 2018 and doing well. Was treated with amiodarone prior to the ablation. Had episode A. fib with RVR back in January 2020, underwent cardioversion and has been maintained in sinus rhythm. Linq monitor showed multiple episodes of atrial fibrillation, short-lived, usually less than 1 hour. This episode is persisting longer. Planning for cardioversion today [id number] score is 4, yearly risk of stroke without oral anticoagulation is 4 percent, currently on Xarelto. Coronary artery disease, History of stent using 3.5x15 mm resolute drug-eluting stent to the LAD expanded to 3.86 mm with excellent results. Cardiac catheterization October 2013 revealed patent stent to the LAD with otherwise moderate disease in the distal LAD. Very small artery distally. Otherwise, no significant obstructive disease. Had an exercise stress echo in October 2015 which showed hypertensive response with normal echocardiographic images with no ischemic changes, unable to tolerate aspirin. Cardiac catheterization was done in November 2017 showing patent stents in the proximal LAD with small vessel disease distally with normal left ventricular end-diastolic pressure. Echocardiogram showed normal LV function with left atrial dilatation, mild MR, moderate TR, PA pressure 50-55 mmHg, We discussed the need for stress test, patient is very hesitant to have a Lexiscan stress test, I doubt that she would be able to walk on a treadmill. I will postpone it until after the next appointment Echocardiogram was done in November 2017 showing normal LV size with EF 55-65 percent, mildly dilated left atrium measuring 4.45 cm, right atrial dilatation, calcified mitral valve with mild MR, aortic valve sclerosis no aortic stenosis, moderate TR, PA 50-55 mmHg. Continue to monitor Hypertension, good control on current medication. Continue to monitor Hyperlipidemia, unable to tolerate simvastatin, continue to monitor lipids Mild bilateral carotid stenosis, continue to monitor History of GI bleed, intolerance to aggressive oral anticoagulations including aspirin and Plavix and Coumadin. Currently maintained on Xarelto. Continue to monitor. Anemia, continue to monitor H&H Hypothyroidism, Monitored and managed by primary care physician Pulmonary nodule, noted on CT scan, was seen by Dr. Mcmullen in the past COPD, bronchial asthma, allergy, was seen and evaluated by Dr. Mcmullen. Currently followed by primary care physician Diabetes mellitus, managed and followed by primary care physician. LEANNA DSOUZA MD Jul 21, 2021 07:15
--- NOTE | 2021-07-21 07:18 | Conscious Sedation/ASA ---
Conscious Sedation Pre-Proced Time 07:17 ASA Score 3 For ASA 3 and 4: Consider anesthesia and medical clearance. Also, for patients with a history of failed moderate sedation consider anesthesia. Airway Lungs Heart ASA score ASA 1: a normal healthy patient ASA 2: a patient with a mild systemic disease (mid diabetes, controlled hypertension, obesity x ASA 3: a patient with a severe systemic disease that limits activity (angina, COPD, prior Myocardial infarction) ASA 4: a patient with an incapacitating disease that is a constant threat to life (CHF, renal failure) ASA 5: a moribund patient not expected to survive 24 hrs. (ruptured aneurysm) ASA 6: a declared brain- patient whose organs are being harvested. For emergent operations, add the letter E after the classification Mallampati Classification Grade 3 Sedation Plan Analgesia, Amnesia, Plan communicated to team members, Discussed options with patient/fam, Discussed risks with patient/fam The patient is an appropriate candidate to undergo the planned procedure, sedation, and anesthesia. The patient immediately re-assessed prior to indication. LEANNA DSOUZA MD Jul 21, 2021 07:18
[2021-07-21] MEDS ORDERED: MIDAZOLAM 2 MG/2 ML (VERSED) VIAL ONE (07:19)
[2021-07-21] MEDS ORDERED: proPOfol 200 MG/20 ML (DIPRIVAN) VIAL IV ONE (07:19)
--- NOTE | 2021-07-21 07:58 | Cardioversion ---
Cardioversion PROCEDURE PHYSICIAN: Leanna Aguilar DATE OF PROCEDURE: 07/21/21 DIRECT EXTERNAL ELECTRICAL CARDIOVERSION: Indications: Atrial flutter with rapid ventricular rate Preoperative diagnoses: Atrial flutter with rapid ventricular rate Postoperative diagnosis: Sinus rhythm, Successful Electrical Cardioversion Anesthesia: By Anesthesia services Complications: None Specimen: None Contrast: 0 Flouroscopy: none Procedure Details: The patient was brought the component lab tech after informed consent was taken, all the risks and complications were explained including the risk of stroke. Electrical cardioversion was carried out with anesthesia support with propofol. 200 joules of synchronized shock was delivered through external patches which promptly restored sinus rhythm. The patient tolerated the procedure well. Conclusions: Successful DC cardioversion and terminating atrial flutter Final Diagnosis: Atrial flutter Tachycardia Palpitation Hypertension MEET,LEANNA Mayer MD Jul 21, 2021 07:58
--- NOTE | 2021-07-21 08:00 | Discharge Inst-Post CATH ---
Discharge Inst-CATH/EP Problems Reviewed?: Yes Post Cardiac Cath/EP D/C Inst Follow Up/Plan Appointment with Dr. Aguilar's office in [address] Zapien office <b>CARDIAC CATH/EP PROCEDURE DISCHARGE INSTRUCTIONS</b> ACTIVITY * Go Home directly and rest. * Limit activity of the leg (or wrist if it was used) for 7 days including aerobics, swimming, jogging, bicycling, etc. * Restrict stair-climbing for 7 days if possible, if not, climb up with your non-cath leg, then bring together on the same step. * Avoid lifting, pushing, pulling or excessive movement of the affected extremity for 7 days. * Customary sexual activity may be resumed after 2 days-use caution not to use a position that strains or causes pain to the affected extremity. * No driving for 24 hours. * NO SMOKING. * Avoid straining for bowel movements for 7 days. * Gentle walking on level ground is allowed. * Returning to work will depend on the type of procedure and the results. Your doctor will discuss this with you. CALL YOUR DOCTOR FOR ANY OF THE FOLLOWING: *If bleeding from the puncture site occurs- Apply gentle pressure to site with clean cloth and call your doctor or EMS. * If a knot or lump forms under the skin, increases in size, or causes pain. * If bruising appears to be worsening or moving further down your leg instead of disappearing. * Temperature above 101 F. CARE OF YOUR GROIN INCISION; * Bruising or purple discoloration of the skin near the puncture site is common. * You may shower only, no bathtub bathing for 5 days. Be careful to avoid slipping as your leg may feel stiff. * If a closure device was used on your femoral artery, please see the attached guide regarding care of the device and your leg. * Leave dressing on FOR 24 hours. CARE OF YOUR WRIST INCISION; * Bruising or purple discoloration of the skin near the puncture site is common. * You may shower. * DO NOT submerge wrist. * Leave dressing on FOR 24 hours. LEANNA AGUILAR MD Jul 21, 2021 08:00
[2021-07-21] MEDS ORDERED: LIRA0.6P SQ (08:47)
[2021-07-21] MEDS ORDERED: LEVO75TA PO (08:47)
[2021-07-21] MEDS ORDERED: FLUT12AE4 IH (09:19)
[2021-07-21] MEDS ORDERED: RT-ALBUINH IH (09:19)
[2021-07-21] MEDS ORDERED: RIVA20TA PO (09:19)
[2021-07-21 10:00] LABS: CALCIUM 9.4 MG/DL (8.5-10.1); CREATININE SERUM 0.78 MG/DL (0.60-1.30); POTASSIUM 3.8 MMOL/L (3.6-5.0)
--- NOTE | 2021-07-21 12:57 | Anesthesia-General Post-Op ---
MAC Patient Condition Mental Status/LOC: Same as Preop Cardiovascular: Satisfactory Nausea/Vomiting: Absent Respiratory: Satisfactory Pain: Controlled Complications: Absent Post Op Complications Complications None Follow Up Care/Instructions Patient Instructions None needed. Anesthesiology Discharge Order Discharge Order Patient is doing well, no complaints, stable vital signs, no apparent adverse anesthesia problems. No complications reported per nursing. JARETT MCKNIGHT CRNA Jul 21, 2021 12:57
== END 2021-07-21 14:20 | disposition home or self-care (01) ==
LOC: EDUNIT# 11:18 → ER 11:19 → CSD 14:39
PROVIDERS: ADMIT Internal Medicine Cardiovascular Disease; ATTEND Internal Medicine Cardiovascular Disease
DX: I48.92 Unspecified atrial flutter (principal); I25.10 Atherosclerotic heart disease of native coronary artery without angina pectoris; I10 Essential (primary) hypertension; I65.23 Occlusion and stenosis of bilateral carotid arteries; I48.91 Unspecified atrial fibrillation; E78.5 Hyperlipidemia, unspecified; E78.00 Pure hypercholesterolemia, unspecified; E11.9 Type 2 diabetes mellitus without complications; E03.9 Hypothyroidism, unspecified; J44.9 Chronic obstructive pulmonary disease, unspecified; K21.9 Gastro-esophageal reflux disease without esophagitis; M06.9 Rheumatoid arthritis, unspecified; R91.1 Solitary pulmonary nodule; Z79.84 Long term (current) use of oral hypoglycemic drugs; Z79.890 Hormone replacement therapy; Z79.899 Other long term (current) drug therapy; Z90.710 Acquired absence of both cervix and uterus; Z90.89 Acquired absence of other organs; Z79.01 Long term (current) use of anticoagulants; Z83.3 Family history of diabetes mellitus
CPT/HCPCS: 80048 ×2; 81000; 84443; 85025; 87636; 92960; 93005 ×2; 93306; 96361; 96365; 96366; 96372; 96375; 99284; G0378; 36415

== ENCOUNTER 2021-10-03 01:04 | Emergency (ER) | payer MEDICARE, OTHER ==
[~2021-10-03] VITALS: Ht 154 cm; Wt 72.0 kg
[~2021-10-03 01:04] MED LIST changes: +LEVO75TA PO; +LIRA0.6P SQ; +RIVA20TA PO
--- NOTE | 2021-10-03 01:41 | ED Abdominal Pain ---
General Chief Complaint: Abdominal/GI Problems Stated Complaint: ABD PAIN Nursing Triage Note: Patient presented to the ER tonight via EMS with complaints of nausea and vomiting x 2 hours as well as abdominal pain. Patient states hx of constipation as well as previous hx. of GI bleeding. Source of Information: Patient Exam Limitations: No Limitations History of Present Illness Date Seen by Provider: Oct 03, 2021 Time Seen by Provider: 01:18 Initial Comments Patient to the ER by EMS from home with chief complaint 2 hours progressively worsening epigastric abdominal pain over to her right upper quadrant. No history of pancreatitis. She is had a gallbladder removed, hysterectomy. No C-sections. She has had colonoscopy demonstrating diverticulosis. She says for the past couple days she has been dehydrated and 2 days ago she took MiraLAX and yesterday Colace. She only produced a very small amount of stool and feels distended. No fevers or chills. She has some nausea with a little vomiting earlier but received some Zofran en route by EMS. She recently about a month ago was started on amiodarone by Dr. Aguilar for her atrial fibrillation. She is had to have ablations as well as shocked for her A. fib in the past. EMS reveals she is in sinus rhythm tonight. Allergies and Home Medications Allergies Coded Allergies: azithromycin (Verified Allergy, Unknown, 06/23/12) cephalexin (Verified Allergy, Unknown, 04/23/06) levofloxacin (Verified Allergy, Unknown, 06/23/12) meloxicam (Verified Allergy, Unknown, 06/23/12) metoprolol (Verified Allergy, Unknown, NECK SPASMS, 10/18/16) metronidazole (Verified Allergy, Unknown, 06/23/12) morphine (Verified Allergy, Unknown, 04/23/06) theophylline (Verified Allergy, Unknown, 04/23/06) prednisone (Verified Adverse Reaction, Intermediate, STOMACH BLEED, 10/19/15) norfloxacin (Verified Adverse Reaction, Unknown, GI INTOLERANCE, 09/11/07) trovafloxacin (Verified Adverse Reaction, Unknown, GI INTOLERANCE, 09/11/07) Patient Home Medication List Home Medication List Reviewed: Yes Albuterol Sulfate (Proair Hfa) 1 Puff Puff, 2 PUFF IH Q4H PRN for SHORTNESS OF BREATH, (Reported) Entered as Reported by: KAMI CURRY on 07/21/21 09 Fluticasone/Salmeterol (Advair Hfa 115-21 Mcg Inhaler) 12 Gm Hfa.aer.ad, 1 PUFF IH BID, (Reported) Entered as Reported by: KAMI CURRY on 07/21/21 09 Glipizide (Glipizide) 5 Mg Tablet, 5 MG PO BID, (Reported) Entered as Reported by: ERIN QUINTEROS on 01/27/20 0952 Levothyroxine Sodium (Levothyroxine Sodium) 75 Mcg Tablet, 75 MCG PO DAILY, (Reported) Entered as Reported by: CAMRON KEMP on 10/10/18 1300 Liraglutide (Victoza 2-Abdirizak) 0.6 Mg/0.1 Ml Pen.injctr, 1.2 MG SQ DAILY, (Reported) Entered as Reported by: KAMI CURRY on 07/21/21 0847 Ondansetron (Ondansetron Odt) 4 Mg Tab.rapdis, 4 MG PO Q4H PRN for NAUSEA/VOMITING Prescribed by: JOHN ESPINOZA on 10/03/21 0428 Rivaroxaban (Xarelto) 20 Mg Tablet, 20 MG PO 1700, (Reported) Entered as Reported by: KAMI CURRY on 07/21/21 09 Review of Systems Review of Systems Constitutional: No chills, No diaphoresis EENTM: No Blurred Vision, No Double Vision Respiratory: Denies Cough, Denies Shortness of Air Cardiovascular: Denies Chest Pain, Denies Lightheadedness Gastrointestinal: See HPI, Abdomen Distended, Abdominal Pain, Constipated; Denies Diarrhea; Nausea, Vomiting Genitourinary: Denies Burning, Denies Discharge Musculoskeletal: No back pain, No joint pain All Other Systems Reviewed Negative Unless Noted: Yes Past Owdzdzt-Czgjuu-Ljqqpv Hx Patient Social History Tobacco Use?: No Use of E-Cig and/or Vaping dev: No Substance use?: No Alcohol Use?: No Immunizations Up To Date Tetanus Booster (TDap): Unknown First/Initial COVID19 Vaccinat: SPRING 2020 Second COVID19 Vaccination Gera: SPRING 2020 Third COVID19 Vaccination Date: MAY 2021 Seasonal Allergies Seasonal Allergies: Yes Past Medical History Surgery/Hospitalization HX: hypertension, diabetic, GI bleeding, cardiac Surgeries: Yes (R CTR;SINUS;R FOOT;BILAT TKR;CARDIAC ABLATION;CARDIAC CATH- STENTS X1;LINQ ) Cardiac, Coronary Stent, Gallbladder, Hysterectomy, Orthopedic, Thyroidectomy Respiratory: Yes Asthma, Pulmonary Embolism, COPD Currently Using CPAP: No Currently Using BIPAP: No Cardiac: Yes Atrial Fibrillation, High Cholesterol, Hypertension Neurological: No Reproductive Disorders: No Female Reproductive Disorders: Denies Sexually Transmitted Disease: No HIV/AIDS: No Genitourinary: No Gastrointestinal: No Gastroesophageal Reflux, Gastrointestinal Bleed Musculoskeletal: No Arthritis, Rheumatoid Arthritis Endocrine: Yes Diabetes, Non-Insulin dep HEENT: No Cataract Loss of Vision: Denies Hearing Impairment: Denies Cancer: No Psychosocial: Yes Anxiety Integumentary: No Blood Disorders: No Adverse Reaction/Blood Tranf: No (HAS HAD BLOOD WITH NO REACTION) Family Medical History Arthritis 19 FATHER G8 SISTER Congenital heart disease 19 MOTHER G8 BROTHER Diabetes mellitus G8 BROTHER FH: CHF (congestive heart failure) 19 FATHER 19 MOTHER G8 BROTHER FH: CVA (cerebrovascular accident) 19 MOTHER G8 SISTER FH: hypercholesterolemia FH: musculoskeletal disease 19 FATHER G8 SISTER Glaucoma G8 SISTER Hypercholesterolemia Hypertension 19 MOTHER G8 SISTER Myocardial infarction G8 BROTHER Heart Disease, Diabetes, Hypertension PSH: -1965-UTERINE SUSPENSION -1975-HYSTERECTOMY -1978-RIGHT CARPAL TUNNEL -1984-CHOLECYSTECTOMY -1987-SINUS SURGERY/POLYP REMOVAL -1991-RIGHT FOOT SURGERY -2006-RIGHT THYROIDECTOMY -2007-LEFT TOTAL KNEE REPLACEMENT -2011-CARDIAC CATH--STENT X 1 AND ANGIOPLASTY -2012-BILATERAL CATARACT SURGERIES -REVEAL LINQ DEVICE IMPLANTED -04/2018-CARDIAC ABLATION AT FOR ATRIAL FIBRILLATION 04/2018-HAND SURGERY Physical Exam Vital Signs Vital Signs - First Documented 10/03/21 01:08 Temp 36.6 Pulse 63 Resp 14 B/P (MAP) 171/77 (108) Pulse Ox 98 O2 Delivery Room Air Capillary Refill : Less Than 3 Seconds Height/Weight/BMI Height: 5'1.00" Weight: 160lbs. 5.0oz. 72.173363fv; 30.00 BMI Method:Stated General Appearance: WD/WN, moderate distress HEENT: PERRL/EOMI, pharynx normal Neck: full range of motion, supple, normal inspection Respiratory: chest non-tender, lungs clear, normal breath sounds, no respiratory distress, no accessory muscle use Cardiovascular: normal peripheral pulses, regular rate, rhythm, no edema Peripheral Pulses: 2+ Dorsalis Pedis (R), 2+ Left Dors-Pedis (L) Gastrointestinal: normal bowel sounds, tenderness (Tenderness in the epigastric region.) Extremities: non-tender, normal inspection, normal capillary refill Neurologic/Psychiatric: alert, normal mood/affect, oriented x 3 Skin: normal color, warm/dry Progress/Results/Core Measures Results/Orders Lab Results Laboratory Tests Test 10/03/21 01:07 10/03/21 02:31 Range/Units White Blood Count 10.2 4.3-11.0 10^3/uL Red Blood Count 5.47 H 3.80-5.11 10^6/uL Hemoglobin 15.6 11.5-16.0 g/dL Hematocrit 49 35-52 % Mean Corpuscular Volume 90 80-99 fL Mean Corpuscular Hemoglobin 29 25-34 pg Mean Corpuscular Hemoglobin Concent 32 32-36 g/dL Red Cell Distribution Width 14.6 H 10.0-14.5 % Platelet Count 296 130-400 10^3/uL Mean Platelet Volume 11.0 9.0-12.2 fL Immature Granulocyte % (Auto) 1 % Neutrophils (%) (Auto) 65 42-75 % Lymphocytes (%) (Auto) 21 12-44 % Monocytes (%) (Auto) 9 0-12 % Eosinophils (%) (Auto) 4 0-10 % Basophils (%) (Auto) 1 0-10 % Neutrophils # (Auto) 6.6 1.8-7.8 10^3/uL Lymphocytes # (Auto) 2.1 1.0-4.0 10^3/uL Monocytes # (Auto) 0.9 0.0-1.0 10^3/uL Eosinophils # (Auto) 0.4 H 0.0-0.3 10^3/uL Basophils # (Auto) 0.1 0.0-0.1 10^3/uL Immature Granulocyte # (Auto) 0.1 0.0-0.1 10^3/uL Sodium Level 138 135-145 MMOL/L Potassium Level 4.2 3.6-5.0 MMOL/L Chloride Level 102 98-107 MMOL/L Carbon Dioxide Level 21 21-32 MMOL/L Anion Gap 15 H 5-14 MMOL/L Blood Urea Nitrogen 16 7-18 MG/DL Creatinine 1.08 0.60-1.30 MG/DL Estimat Glomerular Filtration Rate 52 BUN/Creatinine Ratio 15 Glucose Level 176 H 70-105 MG/DL Calcium Level 10.0 8.5-10.1 MG/DL Corrected Calcium 9.6 8.5-10.1 MG/DL Total Bilirubin 1.0 0.1-1.0 MG/DL Aspartate Amino Transf (AST/SGOT) 22 5-34 U/L Alanine Aminotransferase (ALT/SGPT) 22 0-55 U/L Alkaline Phosphatase 83 40-136 U/L Troponin I < 0.028 <0.028 NG/ML C-Reactive Protein High Sensitivity 0.55 H 0.00-0.50 MG/DL Total Protein 7.9 6.4-8.2 GM/DL Albumin 4.5 3.2-4.5 GM/DL Lipase 33 8-78 U/L Urine Color YELLOW Urine Clarity CLEAR Urine pH 7.0 5-9 Urine Specific [place] 1.020 1.016-1.022 Urine Protein TRACE H NEGATIVE Urine Glucose (UA) NEGATIVE NEGATIVE Urine Ketones TRACE H NEGATIVE Urine Nitrite NEGATIVE NEGATIVE Urine Bilirubin NEGATIVE NEGATIVE Urine Urobilinogen 0.2 < = 1.0 MG/DL Urine Leukocyte Esterase NEGATIVE NEGATIVE Urine RBC (Auto) 3+ H NEGATIVE Urine RBC >100 H /HPF Urine WBC 0-2 /HPF Urine Squamous Epithelial Cells 0-2 /HPF Urine Crystals NONE /LPF Urine Bacteria TRACE /HPF Urine Casts NONE /LPF Urine Mucus NEGATIVE /LPF Urine Culture Indicated NO My Orders Orders - JOHN ESPINOZA Fentanyl Inj (Sublimaze Injection) (10/03/21 01:45) Pantoprazole Injection (Protonix Injecti (10/03/21 01:45) Cbc With Automated Diff (10/03/21 01:33) Comprehensive Metabolic Panel (10/03/21 01:33) Hs C Reactive Protein (10/03/21:33) Lipase (10/03/21:33) Ct Abdomen/Pelvis W (10/03/21:33) Continuous Ekg Monitoring (10/03/21:33) Ekg Tracing (10/03/21:33) Troponin I Irion (10/03/21:33) Chest 1 View, Ap/Pa Only (10/03/21 01:33) Ed Iv/Invasive Line Start (10/03/21 01:33) Ns Iv 500 Ml (Sodium Chloride 0.9%) (10/03/21 01:45) Iohexol Injection (Omnipaque 350 Mg/Ml 1 (10/03/21 02:15) Received Contrast (Hold Metformin- Contr (10/03/21 02:15) Sodium Chloride Flush (Catheter Flush Sy (10/03/21 02:15) Ns (Ivpb) (Sodium Chloride 0.9% Ivpb Bag (10/03/21 02:15) Ua Culture If Indicated (10/03/21 02:31) Ondansetron Injection (Zofran Injectio (10/03/21 04:15) Medications Given in ED Vital Signs/I&O 10/03/21 10/03/21 01:08 04:34 Temp 36.6 Pulse 63 62 Resp 14 18 B/P (MAP) 171/77 (108) 153/69 Pulse Ox 98 98 O2 Delivery Room Air Room Air Blood Pressure Mean: 108 Progress Progress Note #1: Time: 01:40 Progress Note Epigastric pain could be GERD, constipation less likely pancreatitis or an acute coronary syndrome with a atypical presentation. Plan to get an EKG some labs chest x-ray CT of her abdomen and pelvis and give her an antacid as well as some fentanyl for her discomfort. She says her nausea is under control after the Zofran. Small bolus of fluid to start. Progress Note #2: Time: 04:07 Progress Note Patient pain is significantly improved. She still having some burping and her nausea starting to come back. We did give her the opportunity to go home and do MiraLAX cleanout of her presumed constipation/obstipation with some nausea medicines. She still a little loopy from the fentanyl so we also offered an opportunity for an observation. She is finishing her 500 cc of IV fluids and will give her another 8 of Zofran and reassess. Progress Note #3: Time: 04:26 Progress Note Patient's nausea is improved she would like to try and go home and attempt outpatient treatment of obstipation. Return precautions were gone over. Progress Note #4: Time: 20:05 Progress Note Called to follow-up with the patient she states that she has had a large hard bowel movement and after that she had multiple copious loose stools. She thinks she is caught up so we recommended MiraLAX daily as well as fiber supplementation to keep regular. She states she is feeling much better. Initial ECG Impression Date: Oct 03, 2021 Initial ECG Impression Time: 01:40 Initial ECG Rate: 60 Initial ECG Rhythm: Normal Sinus Initial ECG Intervals: QT (479) Initial ECG Impression: Normal, Nonspecific Changes Initial ECG Comparisson: No Previous ECG Available Comment Normal sinus rhythm with borderline prolonged QTC. No clinically relevant ST changes. Diagnostic Imaging Diagonstic Imaging: Xray Plain Films/CT/US/NM/MRI: chest Comments [email or web address] [place] [place] [facility] [id number] PT STATUS: DEP ER : 1940 PHYSICIAN: JOHN ESPINOZA MD ADMIT DATE: 10/03/21/ER Signed Date of Exam:10/03/21 CHEST 1 VIEW, AP/PA ONLY EXAMINATION: Chest 1 view HISTORY: Abd pain COMPARISON: 01/27/2020 FINDINGS: Heart size and pulmonary vasculature are normal. The lungs are clear without consolidation, pleural effusion, or pneumothorax. The osseous structures are intact. IMPRESSION: 1. No acute radiographic abnormality in the chest. Dictated by: Dictated on workstation # [id number] Dict: 10/03/2110 Trans: 10/03/21734 [facility] [id number] Interpreted by: GAVIOTA DONNELLY DO Electronically signed by: GAVIOTA DONNELLY DO 10/03/21 0735 Unremarkable 1 view chest x-ray Reviewed: Reviewed by Me Diagonstic Imaging: CT Plain Films/CT/US/NM/MRI: abdomen, pelvis Comments Small hiatal hernia with distal esophageal wall thickening. 14 x 10 mm cystic lesion in the pancreatic head and neck region. This could be further evaluated by MRCP. [email or web address] [place] NAME: [facility] REC#: [id number] PT STATUS: DEP ER : 1940 PHYSICIAN: JOHN ESPINOZA MD ADMIT DATE: 10/03/21/ER Signed Date of Exam:10/03/21 CT ABDOMEN/PELVIS W EXAMINATION: CT abdomen and pelvis with intravenous contrast. TECHNIQUE: Multiple contiguous axial images were obtained through the abdomen and pelvis after the uneventful administration of intravenous contrast. All CT scans use one or more of the following dose optimizing techniques: automated exposure control, MA and/or KvP adjustment based on patient size and exam type or iterative reconstruction. HISTORY: Epigastric pain COMPARISON: 05/16/2017 FINDINGS: Lung bases: The lung bases are clear. Solid organs: The liver is normal without focal lesion. The gallbladder is surgically absent. There is ductal dilatation which may be secondary to reservoir effect from prior cholecystectomy. There is a 1.4 cm cystic lesion within the pancreatic neck which was not definitively seen on prior CT. No pancreatic ductal dilatation is seen. There are numerous calcified granulomas within the spleen. There is indeterminate bilateral adrenal thickening which has a nodular appearance. The kidneys are normal without hydronephrosis. Bowel: Small hiatal hernia. Mild wall thickening of the distal esophagus. There is no bowel obstruction. Colon is unremarkable. There are a few scattered colonic diverticula. No findings of acute appendicitis. Peritoneum: There is no intraperitoneal free fluid or free air. No suspicious lymphadenopathy. Vasculature: Calcification of the aorta without aneurysm. Musculoskeletal: Degenerative changes of the spine without suspicious osseous lesion or compression fracture. Pelvis: The uterus is surgically absent. No adnexal mass. The urinary bladder is normal. IMPRESSION: 1. No acute abnormality in the abdomen or pelvis. 2. Small hiatal hernia with mild distal esophageal thickening. 3. Colonic diverticulosis without findings of diverticulitis. 4. A 1.4 cm cystic-appearing lesion within the pancreatic neck. This can be further evaluated with MRI. 5. Agree with preliminary interpretation. Dictated by: Dictated on workstation # [id number] Dict: 10/03/21 0614 Trans: 10/03/21 0735 NOA [id number] Interpreted by: GAVIOTA DONNELLY DO Electronically signed by: GAVIOTA DONNELLY DO 10/03/21 0735 Reviewed: Reviewed by Me Departure Impression Primary Impression: Obstipation Additional Impressions: Dehydration, mild Pancreatic cyst Disposition: 01 HOME, SELF-CARE Condition: Stable Departure-Patient Inst. Decision time for Depature: 04:26 Referrals: JUAN FRANCISCO VEGA MD (PCP/Family) Primary Care Physician Patient Instructions: Constipation, Adult (DC) Add. Discharge Instructions: You will need to use MiraLAX 1 capful and 6 to 8 ounces of fluid for 5 times a day minimum to help have a bowel movement. Drink lots of fluids with this. You will also need to use a Fleet enema once or twice a day to help move things along from below. You may use Colace or similar stool softeners in addition to glycerin supposito alexander as needed. If you have nausea take Zofran 1 tablet every 4 hours as needed. If you are having some pain you may use Tylenol, Motrin and simethicone/Gas-X to help reduce the distention of your bowels and therefore pain. If your symptoms are persistent despite having copious bowel movements then follow-up with your primary care doctor. If you are having intractable pain, nausea or new symptoms then please return to the ER for further evaluation and management. Incidentally on your CT of your belly we found a small cyst on the head of the pancreas. You will need to follow-up in the next 2 to 4 weeks with your primary care doctor to discuss appropriate follow-up for this. She can review your prior imaging and guide you further in the clinic. All discharge instructions reviewed with patient and/or family. Voiced understanding. Scripts Ondansetron (Ondansetron Odt) 4 Mg Tab.rapdis 4 MG PO Q4H PRN for NAUSEA/VOMITING, #12 TAB 0 Refills Prov: JOHN ESPINOZA 10/03/21 Copy Copies To 1: JUAN FRANCISCO VEGA MD, TITUS J Oct 03, 2021 01:41
[2021-10-03 01:42] LABS: BASOPHILS # (AUTO) 0.1 10^3/uL (0.0-0.1); BASOPHILS % (AUTO) 1 % (0-10); EOSINOPHILS # (AUTO) 0.4 10^3/uL (0.0-0.3); EOSINOPHILS % (AUTO) 4 % (0-10); HEMATOCRIT 49 % (35-52); HEMOGLOBIN 15.6 g/dL (11.5-16.0); LYMPHOCYTES # (AUTO) 2.1 10^3/uL (1.0-4.0); LYMPHOCYTES % (AUTO) 21 % (12-44); MEAN CORPUSCULAR HEMOGLOBIN 29 pg (25-34); MEAN CORPUSCULAR HGB CONC 32 g/dL (32-36); MEAN CORPUSCULAR VOLUME 90 fL (80-99); MONOCYTES # (AUTO) 0.9 10^3/uL (0.0-1.0); MONOCYTES % (AUTO) 9 % (0-12); NEUTROPHILS # (AUTO) 6.6 10^3/uL (1.8-7.8); NEUTROPHILS % (AUTO) 65 % (42-75); PLATELET COUNT 296 10^3/uL (130-400); WHITE BLOOD COUNT 10.2 10^3/uL (4.3-11.0)
[2021-10-03] MEDS ORDERED: fentaNYL INJ 100 MCG/2 ML AMP IVP ONE (01:45)
[2021-10-03] MEDS ORDERED: NS IV 500 ML 500 ML IV ONE (01:45)
[2021-10-03] MEDS ORDERED: PANTOPRAZOLE 40 MG (PROTONIX) VIAL IV ONE (01:45)
[2021-10-03 01:54] LABS: ALANINE AMINOTRANSFERASE 22 U/L (0-55); ALBUMIN 4.5 GM/DL (3.2-4.5); ALKALINE PHOSPHATASE 83 U/L (40-136); BUN/CREATININE RATIO 15; CARBON DIOXIDE 21 MMOL/L (21-32); CHLORIDE 102 MMOL/L (98-107); CREATININE SERUM 1.08 MG/DL (0.60-1.30); GFR ESTIMATED 52; GLUCOSE 176 MG/DL (70-105); LIPASE 33 U/L (8-78); POTASSIUM 4.2 MMOL/L (3.6-5.0); SODIUM 138 MMOL/L (135-145); TOTAL PROTEIN 7.9 GM/DL (6.4-8.2)
[2021-10-03] MEDS ORDERED: HOLD METFORMIN - RECEIVED CONTRAST 20 ML VIAL IV SCH (02:15)
[2021-10-03] MEDS ORDERED: NS 100 ML (IVPB) BAG IV ONE (02:15)
[2021-10-03] MEDS ORDERED: CATHETER FLUSH 10 ML SYR IV PRN (02:15)
[2021-10-03] MEDS ORDERED: IOHEXOL 350 MG/ML 100 ML (OMNIPAQUE 350) VIAL IV ONE (02:15)
[2021-10-03 02:36] LABS: BILIRUBIN,URINE NEGATIVE (NEGATIVE); CLARITY,URINE CLEAR; COLOR,URINE YELLOW; GLUCOSE, URINE (UA) NEGATIVE (NEGATIVE); KETONES,URINE TRACE (NEGATIVE); LEUKOCYTE ESTERASE ,URINE NEGATIVE (NEGATIVE); NITRITE,URINE NEGATIVE (NEGATIVE); PROTEIN,URINE TRACE (NEGATIVE)
[2021-10-03 02:42] LABS: BACTERIA,URINE TRACE /HPF; RBC,URINE >100 /HPF; SQUAMOUS EPITHELIAL CELL,UR 0-2 /HPF; WBC,URINE 0-2 /HPF
[2021-10-03] MEDS ORDERED: ONDANSETRON 4 MG/2 ML (SDV) Z0FRAN IVP ONE (04:15)
[2021-10-03] MEDS ORDERED: ONDA4TAB11 PO (04:28)
[2021-10-03 04:34] VITALS: BP 153/69
--- NOTE | 2021-10-03 06:20 | Diagnostic Imaging Report ---
EXAMINATION: CT abdomen and pelvis with intravenous contrast. TECHNIQUE: Multiple contiguous axial images were obtained through the abdomen and pelvis after the uneventful administration of intravenous contrast. All CT scans use one or more of the following dose optimizing techniques: automated exposure control, MA and/or KvP adjustment based on patient size and exam type or iterative reconstruction. HISTORY: Epigastric pain COMPARISON: 05/16/2017 FINDINGS: Lung bases: The lung bases are clear. Solid organs: The liver is normal without focal lesion. The gallbladder is surgically absent. There is ductal dilatation which may be secondary to reservoir effect from prior cholecystectomy. There is a 1.4 cm cystic lesion within the pancreatic neck which was not definitively seen on prior CT. No pancreatic ductal dilatation is seen. There are numerous calcified granulomas within the spleen. There is indeterminate bilateral adrenal thickening which has a nodular appearance. The kidneys are normal without hydronephrosis. Bowel: Small hiatal hernia. Mild wall thickening of the distal esophagus. There is no bowel obstruction. Colon is unremarkable. There are a few scattered colonic diverticula. No findings of acute appendicitis. Peritoneum: There is no intraperitoneal free fluid or free air. No suspicious lymphadenopathy. Vasculature: Calcification of the aorta without aneurysm. Musculoskeletal: Degenerative changes of the spine without suspicious osseous lesion or compression fracture. Pelvis: The uterus is surgically absent. No adnexal mass. The urinary bladder is normal. IMPRESSION: 1. No acute abnormality in the abdomen or pelvis. 2. Small hiatal hernia with mild distal esophageal thickening. 3. Colonic diverticulosis without findings of diverticulitis. 4. A 1.4 cm cystic-appearing lesion within the pancreatic neck. This can be further evaluated with MRI. 5. Agree with preliminary interpretation. Dictated by: Dictated on workstation # [id number]
--- NOTE | 2021-10-03 07:11 | Diagnostic Imaging Report ---
EXAMINATION: Chest 1 view HISTORY: Abd pain COMPARISON: 01/27/2020 FINDINGS: Heart size and pulmonary vasculature are normal. The lungs are clear without consolidation, pleural effusion, or pneumothorax. The osseous structures are intact. IMPRESSION: 1. No acute radiographic abnormality in the chest. Dictated by: Dictated on workstation # [id number]
== END 2021-10-03 04:38 | disposition home or self-care (01) ==
LOC: EDUNIT# 01:04 → ER 01:05
DX: K59.00 Constipation, unspecified (principal); E86.0 Dehydration; K86.2 Cyst of pancreas; I48.91 Unspecified atrial fibrillation; Z90.711 Acquired absence of uterus with remaining cervical stump
CPT/HCPCS: 36415; 71045; 74177; 80053; 81000; 83690; 84484; 85025; 86141; 93005

== ENCOUNTER → 2021-10-26 | Outpatient (CLI) | payer MEDICARE, OTHER ==
[~2021-10-26] VITALS: Ht 152 cm; Wt 70.0 kg
[~2021-10-26] MED LIST changes: +CATHETER FLUSH 10 ML SYR IVP PRN; +ONDA4TAB11 PO; +REGADENOSON 0.4 MG/5 ML SYR (LEXISCAN) IV ONE
[2021-10-26 09:54] VITALS: BP 215/97
--- NOTE | 2021-10-26 12:43 | Cardiology Stress Test Report ---
Stress Test Report Date of Procedure/Referring: Date of Procedure: Oct 26, 2021 PCP Leanna Aguilar MD Admitting Physician Clarice Elaine MD Indications: A Fib Baseline Heart Rate: 58 Baseline Blood Pressure: Blood Pressure Systolic: 215 Blood Pressure Diastolic: 97 Baseline Vitals Vital Signs Date Time Temp Pulse Resp B/P (MAP) Pulse Ox O2 Delivery O2 Flow Rate FiO2 10/26/21 09:54 59 17 215/97 (136) 98 Room Air Baseline EKG: Baseline EKG: NSr Summary After explaining the procedure to the patient, she signed a consent and then brought to the stress nuclear laboratory. Patient received 0.4 mg Lexiscan for stress test, ECG, heart rate and blood pressure were monitored continuously. Resting and stress dose of radio tracer were injected, imaging was acquired and reviewed in short axis, horizontal long axis and vertical long axis views. TID: 0.98 SSS: 9 SDS: 4 EF: 66 1. Patient tolerated Lexiscan well 2. Breast attenuation with reversible ischemia involving the mid to apical anterior wall and anterolateral wall 3. Normal left ventricular size, EF 66% LEANNA AGUILAR MD Oct 26, 2021 12:43
== END ==
LOC: CARD 08:30
PROVIDERS: ATTEND Internal Medicine Cardiovascular Disease
DX: I48.91 Unspecified atrial fibrillation (principal); I25.10 Atherosclerotic heart disease of native coronary artery without angina pectoris; I10 Essential (primary) hypertension
CPT/HCPCS: 78452; 93017; A9502

== ENCOUNTER 2021-11-02 08:47 | Day surgery (SDC) | payer MEDICARE, OTHER ==
[~2021-11-02] VITALS: Ht 159.9 cm; Wt 74.3 kg
[2021-11-02] VITALS (8 sets, daily range): BP systolic 140–179; BP diastolic 59–78
[~2021-11-02 08:47] MED LIST changes: -CATHETER FLUSH 10 ML SYR IVP PRN; -REGADENOSON 0.4 MG/5 ML SYR (LEXISCAN) IV ONE
[2021-11-02] MEDS ORDERED: LIDOCAINE 1% INJ 20 ML VIAL ONE (08:52)
[2021-11-02] MEDS ORDERED: NS IV 1000 ML 1,000 ML ONE (08:52)
[2021-11-02] MEDS ORDERED: HEParin (CATH LAB) 2,000 ML IV ONE (08:52)
[2021-11-02] MEDS ORDERED: NS IV 1000 ML 1,000 ML IV SCH ×2 (09:00→10:30)
[2021-11-02 09:18] LABS: HEMATOCRIT 45 % (35-52); HEMOGLOBIN 14.1 g/dL (11.5-16.0); MEAN CORPUSCULAR HEMOGLOBIN 28 pg (25-34); MEAN CORPUSCULAR HGB CONC 31 g/dL (32-36); MEAN CORPUSCULAR VOLUME 91 fL (80-99); MEAN PLATELET VOLUME 10.2 fL (9.0-12.2); PLATELET COUNT 271 10^3/uL (130-400); WHITE BLOOD COUNT 8.3 10^3/uL (4.3-11.0)
[2021-11-02 09:19] LABS: BILIRUBIN,URINE NEGATIVE (NEGATIVE); CLARITY,URINE CLEAR; COLOR,URINE YELLOW; GLUCOSE, URINE (UA) NEGATIVE (NEGATIVE); KETONES,URINE NEGATIVE (NEGATIVE); LEUKOCYTE ESTERASE ,URINE NEGATIVE (NEGATIVE); NITRITE,URINE NEGATIVE (NEGATIVE); PH,URINE 5.5 (5-9); PROTEIN,URINE NEGATIVE (NEGATIVE)
--- NOTE | 2021-11-02 09:19 | Diagnostic Imaging Report ---
INDICATION: Pre-heart catheterization. TIME OF EXAM: 9:06 AM. COMPARISON: Correlation is made with the prior chest from 10/03/2021. FINDINGS: The heart is enlarged but stable. The lungs are clear. No infiltrates are seen. There is no effusion or pneumothorax. IMPRESSION: No acute cardiopulmonary process is detected. Dictated by: Dictated on workstation # [id number]
[2021-11-02] MEDS ORDERED: MIDAZOLAM 5 MG/5 ML (VERSED) VIAL ONE (09:43)
[2021-11-02] MEDS ORDERED: VERAPAMIL 5 MG/2 ML (CALAN) VIAL IV ONE (09:43)
[2021-11-02] MEDS ORDERED: fentaNYL INJ 100 MCG/2 ML AMP ONE (09:43)
[2021-11-02] MEDS ORDERED: NITRO DRIP 25000 MCG/D5W 250 ML IV ONE (09:43)
[2021-11-02] MEDS ORDERED: HEParin 1000 UNIT/ML (10ML VIAL) FOR BOLUS ONE (09:43)
[2021-11-02 09:44] LABS: BACTERIA,URINE TRACE /HPF; RBC,URINE RARE /HPF; WBC,URINE 0-2 /HPF
[2021-11-02 09:47] LABS: INR 1.2 (0.8-1.4); PROTHROMBIN TIME PATIENT 15.9 SEC (12.2-14.7)
[2021-11-02 09:49] LABS: ALBUMIN 4.2 GM/DL (3.2-4.5); CALCIUM 9.2 MG/DL (8.5-10.1); CREATININE SERUM 0.95 MG/DL (0.60-1.30); POTASSIUM 4.2 MMOL/L (3.6-5.0); TOTAL PROTEIN 6.8 GM/DL (6.4-8.2)
[2021-11-02] MEDS ORDERED: AMIO200T65 PO (09:52)
[2021-11-02] MEDS ORDERED: DILT-27 PO (09:52)
[2021-11-02] MEDS ORDERED: ONDA4TAB11 PO (09:52)
--- NOTE | 2021-11-02 10:29 | Discharge Inst-Post CATH ---
Discharge Inst-CATH/EP Problems Reviewed?: Yes Post Cardiac Cath/EP D/C Inst Follow Up/Plan Appointment with Dr. Aguilar's office in 2 to 4 weeks <b>CARDIAC CATH/EP PROCEDURE DISCHARGE INSTRUCTIONS</b> ACTIVITY * Go Home directly and rest. * Limit activity of the leg (or wrist if it was used) for 7 days including aer obics, swimming, jogging, bicycling, etc. * Restrict stair-climbing for 7 days if possible, if not, climb up with your non-cath leg, then bring together on the same step. * Avoid lifting, pushing, pulling or excessive movement of the affected extremi ty for 7 days. * Customary sexual activity may be resumed after 2 days-use caution not to use a position that strains or causes pain to the affected extremity. * No driving for 24 hours. * NO SMOKING. * Avoid straining for bowel movements for 7 days. * Gentle walking on level ground is allowed. * Returning to work will depend on the type of procedure and the results. Your doctor will discuss this with you. CALL YOUR DOCTOR FOR ANY OF THE FOLLOWING: *If bleeding from the puncture site occurs- Apply gentle pressure to site with clean cloth and call your doctor or EMS. * If a knot or lump forms under the skin, increases in size, or causes pain. * If bruising appears to be worsening or moving further down your leg instead of disappearing. * Temperature above 101 F. CARE OF YOUR GROIN INCISION; * Bruising or purple discoloration of the skin near the puncture site is common. * You may shower only, no bathtub bathing for 5 days. Be careful to avoid slipping as your leg may feel stiff. * If a closure device was used on your femoral artery, please see the attached guide regarding care of the device and your leg. * Leave dressing on FOR 24 hours. CARE OF YOUR WRIST INCISION; * Bruising or purple discoloration of the skin near the puncture site is common. * You may shower. * DO NOT submerge wrist. * Leave dressing on FOR 24 hours. LEANNA AGUILAR MD Nov 02, 2021 10:29
--- NOTE | 2021-11-02 10:32 | Cardiac Cath Report ---
Cardiac Cath Report Physician (s)/Disability Insurance Hearing Officer (s) Physician LEANNA DSOUZA MD Pre-Procedure Diagnosis Pre-Procedure Diagnosis: Coronary artery disease Post-Procedure Note Procedure Start Date: Nov 02, 2021 Name of Procedure: Left heart catheterization Findings/Procedure Note PROCEDURE NOTE: 81 years old lady with history of coronary artery disease, stent to the LAD. Had an abnormal stress test, scheduled for cardiac catheterization possible PTCA. After explaining the procedure to the patient, all pros and cons were explained, all questions were answered. The patient signed the consent and then she was placed on the cardiac catheterization laboratory. Groin was prepped SL fashion local anesthesia was used. Sheath placed in the right radial artery, [place] catheter was advanced to the left ventricular cavity, pressure was measured, pullback LV to aorta was done, engaged the right and left coronary system, angiogram was done. At the end of the procedure the sheath was removed. 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 Nonobstructive disease LV Gram was not done, pressure was measured CONCLUSION: 1. 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 Tortuous right coronary artery with mild disease nonobstructive disease, mild disease in the circumflex artery 3. Moderately elevated left ventricular end-diastolic pressure probably due to diastolic dysfunction DISCUSSION AND RECOMMENDATION: Continue to maximize medical therapy Anesthesia Type: Conscious Sedation Estimated blood loss (mL): 20 ml Contrast Amount: 26 ml Total Radiation Dose: 234 mGy Post-Procedure Diagnosis Post-operative diagnosis: Chest pain Coronary artery disease Paroxysmal atrial fibrillation Hypertension LEANNA DSOUZA MD Nov 02, 2021 10:32
--- NOTE | 2021-11-07 14:31 | Conscious Sedation/ASA ---
11/07/21 1431: Conscious Sedation Pre-Proced ASA Score For ASA 3 and 4: Consider anesthesia and medical clearance. Also, for patients with a history of failed moderate sedation consider anesthesia. Airway Lungs Heart ASA score ASA 1: a normal healthy patient ASA 2: a patient with a mild systemic disease (mid diabetes, controlled hypertension, obesity ASA 3: a patient with a severe systemic disease that limits activity (angina, COPD, prior Myocardial infarction) ASA 4: a patient with an incapacitating disease that is a constant threat to life (CHF, renal failure) ASA 5: a moribund patient not expected to survive 24 hrs. (ruptured aneurysm) ASA 6: a declared brain- patient whose organs are being harvested. For emergent operations, add the letter E after the classification Sedation Plan The patient is an appropriate candidate to undergo the planned procedure, sedation, and anesthesia. The patient immediately re-assessed prior to indication. LEANNA DSOUZA MD 11/07/21 1747: Conscious Sedation Pre-Proced Time 17:47 ASA Score 3 Mallampati Classification Grade 3 Sedation Plan Analgesia, Amnesia, Plan communicated to team members, Discussed options with patient/fam, Discussed risks with patient/fam November 07, 2021 14:31 LEANNA DSOUZA MD November 07, 2021 17:47
== END 2021-11-02 12:55 | disposition home or self-care (01) ==
LOC: CATH 08:47 → SDC 10:59 → CATH 12:55
PROVIDERS: ATTEND Internal Medicine Cardiovascular Disease
DX: I25.10 Atherosclerotic heart disease of native coronary artery without angina pectoris (principal); I48.0 Paroxysmal atrial fibrillation; I10 Essential (primary) hypertension; I48.91 Unspecified atrial fibrillation; I65.23 Occlusion and stenosis of bilateral carotid arteries; K92.2 Gastrointestinal hemorrhage, unspecified; D64.9 Anemia, unspecified; J44.9 Chronic obstructive pulmonary disease, unspecified; E78.5 Hyperlipidemia, unspecified; E03.9 Hypothyroidism, unspecified; E11.9 Type 2 diabetes mellitus without complications; F41.9 Anxiety disorder, unspecified; Z95.5 Presence of coronary angioplasty implant and graft; Z79.899 Other long term (current) drug therapy; Z79.01 Long term (current) use of anticoagulants; Z79.84 Long term (current) use of oral hypoglycemic drugs; Z79.890 Hormone replacement therapy
CPT/HCPCS: 71045; 80053; 80061; 81000; 85027; 85610; 85730; 87081; 93005; 93458; C1894; 36415

== ENCOUNTER → 2022-02-09 | Outpatient (CLI) | payer MEDICARE, OTHER ==
[~2022-02-09] MED LIST changes: +DILT-27 PO; +GADOTERATE 0.5 MMOL/ML (CLARISCAN) 15 ML VIAL IV ONE
--- NOTE | 2022-02-09 10:58 | Diagnostic Imaging Report ---
EXAMINATION: MRI of the abdomen with and without contrast. TECHNIQUE: Multiplanar, multisequence MR images of the abdomen were obtained with and without intravenous contrast. Additional 3-D MIPS MRCP images were generated at an independent workstation. HISTORY: Pancreatic lesion evaluation COMPARISON: 10/03/2021 FINDINGS: Liver: The liver is normal in signal and smooth in contour. There is no focal hepatic mass. The portal and hepatic veins are patent. Gallbladder and Bile Ducts: Gallbladder is surgically absent. There is intrahepatic and extrahepatic biliary ductal dilatation without filling defect or obstructing lesion. The common bile duct is dilated up to 1.3 cm. There is smooth tapering to the level of the ampulla. Pancreas: There are innumerable cystic lesions seen throughout the pancreas. There is a 12.3 cm pancreatic neck. Many of these lesions demonstrate connection to the pancreatic duct. No pancreatic ductal dilatation or suspicious enhancing lesion. Kidneys: There is no hydronephrosis. Adrenal glands: There is no adrenal gland nodule or thickening. Spleen: The spleen is normal in size without focal lesion. Lymph Nodes: There is no suspicious lymphadenopathy. Other: There is no ascites. IMPRESSION: 1. Multiple cystic lesions seen throughout the pancreas measuring 1.3 cm. These are indeterminate but could represent side branch type IPMNs. Recommend MRI followup in 2 years. Pancreatic ductal dilatation or suspicious enhancing pancreatic lesion. 2. Intrahepatic and extrahepatic biliary ductal dilatation without filling defect or obstructing lesion. This may be secondary to reservoir effect from prior cholecystectomy. Dictated by: Dictated on workstation # [id number]
== END ==
LOC: RAD 08:54
PROVIDERS: ATTEND Family Medicine
DX: K86.2 Cyst of pancreas (principal)
CPT/HCPCS: 74183

== ENCOUNTER 2022-03-29 11:24 | Outpatient (CLI) | payer MEDICARE, OTHER ==
[~2022-03-29] VITALS: Ht 152.8 cm; Wt 65.9 kg
[~2022-03-29 11:24] MED LIST changes: -GADOTERATE 0.5 MMOL/ML (CLARISCAN) 15 ML VIAL IV ONE
[2022-03-30] MEDS ORDERED: TRM50T PO (10:09)
== END 2022-03-29 13:07 ==
LOC: PREOP 11:24
PROVIDERS: ATTEND Surgery
DX: Z01.818 Encounter for other preprocedural examination (principal)

== ENCOUNTER 2022-03-30 09:54 | Day surgery (SDC) | payer MEDICARE, OTHER ==
[~2022-03-30] VITALS: Ht 152.8 cm; Wt 65.9 kg
[2022-03-30] VITALS (10 sets, daily range): BP systolic 136–193; BP diastolic 65–90
[~2022-03-30 09:54] MED LIST changes: +LACTATED RINGERS 1,000 ML IV PRN
--- NOTE | 2022-03-30 10:06 | Progress Note-Pre Operative ---
Pre-Operative Progress Note Date H&P Reviewed: Mar 30, 2022 Time H&P Reviewed: 10:00 History & Physical: H&P Reviewed, Patient Examed, No changes noted Pre-Operative Diagnosis: Left buttock lesion and hematoma TIMOTHY RAMIREZ APRN Mar 30, 2022 10:06
[2022-03-30] MEDS ORDERED: LIDOCAINE/EPI 2% 1:200,00 (XYLOCAINE) 20 ML VIAL ONE (10:08)
[2022-03-30] MEDS ORDERED: TRM50T PO (10:09)
--- NOTE | 2022-03-30 10:10 | Discharge Inst-Surgical ---
D/C Lap Instructions-KIDO Reconcile Patient Problems Problems Reviewed?: Yes New, Converted, or Re-Newed RX: RX on Chart Follow Up Appt in 2 weeks Activity as tolerated No driving for 24 hours No driving while on pain medications Incentive Spirometry use every 2 hours while awake Regular Diet Symptoms to Report: Fever over 101 degree F, Nausea/Vomiting Infection Signs and Symptoms to report: Increased redness, Foul odor of wound, Increased drainage Bathing instructions: May shower Operative Area Clean/Dry; Keep incision clean/dry If any problems/questions: Contact your physician or go to Emergency Room TIMOTHY RAMIREZ APRN Mar 30, 2022 10:10
[2022-03-30] MEDS ORDERED: HYDROcodone/APAP 5 MG/325 MG (LORTAB) TAB PO ONE (10:15)
[2022-03-30] MEDS ORDERED: ONDANSETRON 4 MG/2 ML (SDV) Z0FRAN IVP PRN ×2 (10:15→11:45)
[2022-03-30] MEDS ORDERED: fentaNYL INJ 100 MCG/2 ML AMP IVP PRN (10:15)
[2022-03-30] MEDS ORDERED: ACETAMINOPHEN 325 MG TABLET PO PRN (10:15)
[2022-03-30] MEDS ORDERED: LIDOCAINE/EPI 2% 1:200,00 (XYLOCAINE) 10 ML VIAL INJ ONE (10:15)
[2022-03-30] MEDS ORDERED: CLINDAMYCIN 600 MG/50 ML IVPB 50 ML IV ONE ×2 (10:22→14:30)
--- NOTE | 2022-03-30 11:38 | Progress Note-Post Operative ---
Post-Operative Progess Note Surgeon (s)/Front Desk Person (s) Surgeon FRENCH DENIS MD Front Desk Person: breana phipps AUTOMATIC OPERATOR Pre-Operative Diagnosis Left buttock lesion and hematoma Post-Operative Diagnosis same Procedure & Operative Findings Date of Procedure 03/30/22 Procedure Performed/Findings excision left buttock skin lesion 2x2cm, excision subcutaneous chronic hematoma capsule 3x3cm. Anesthesia Type general LMA with local Estimated Blood Loss Estimated blood loss (mL): minimal Specimens/Packing Specimens Removed lt buttock skin lesion and hematoma capsule. FRENCH DENIS MD Mar 30, 2022 11:38
[2022-03-30] MEDS ORDERED: fentaNYL INJ 100 MCG/2 ML AMP IVP ONE (11:45)
--- NOTE | 2022-03-30 11:49 | Anesthesia-General Post-Op ---
General Patient Condition Mental Status/LOC: Same as Preop Cardiovascular: Satisfactory Nausea/Vomiting: Absent Respiratory: Satisfactory Pain: Controlled Complications: Absent Post Op Complications Complications None Follow Up Care/Instructions Patient Instructions None needed. Anesthesia/Patient Condition Patient Condition Patient is doing well, no complaints, stable vital signs, no apparent adverse anesthesia problems. No complications reported per nursing. D/C home per [facility] [place]: Yes ANTHONY VILLALPANDO CRNA Mar 30, 2022 11:49
--- NOTE | 2022-03-30 15:29 | OPERATIVE REPORT ---
DATE OF SERVICE: 03/30/2022 DICTATION ENDS HERE. Job ID: [id number] DocumentID: [id number] Dictated Date: 03/30/2022 11:00:37 Senior Chemical Engineer Date: 03/30/2022 15:28:22 Dictated By: FRENCH DENIS MD
--- NOTE | 2022-03-30 15:55 | OPERATIVE REPORT ---
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 SURGEON: French Denis MD. ACID CUTTER: Kaushik Zarate APRN. ANESTHESIA: General laryngeal mask airway. ESTIMATED BLOOD LOSS: Minimal. FINDINGS: No visible lesions on the skin, large chronic hematoma. No signs of infection. DISPOSITION: The patient tolerated the procedure well. INDICATIONS: The patient is an 82-year-old female known to us. We have seen her for issues with reflux esophagitis as well as peptic ulcer disease. She developed a symptomatic cyst of the left buttock, which had been around for many years, which grew larger in size and became painful. This was excised in the office and came back as an atypical melanocytic nevus. She is also on Xarelto for anticoagulation and did develop a symptomatic hematoma underneath the lesion. She is here for reexcision. DESCRIPTION OF PROCEDURE: The patient was brought to the operating room, laid supine on the table. After adequate IV pain and sedative medications and general laryngeal mask airway intubation, the patient was placed in right lateral decubitus position. The buttock was then prepped and draped in standard surgical fashion. A 0.5% Marcaine with epinephrine was then used to anesthetize the overlying skin. We then measured 1 cm from the previous excision site in all directions and proceeded with excision of the full thickness of the skin using a 15 blade. This was then sent to pathology after being marked. The hematoma cavity was then excised and the capsule, which was approximately 3 x 3 cm in size and the subcutaneous fat was then excised using electrocautery with visualization of good hemostasis. The subcutaneous tissue was then reapproximated using 3-0 Vicryl interrupted sutures. Skin was closed using 3-0 nylon interrupted sutures in a transverse manner. Wound was then cleaned and covered with sterile dressing. The patient tolerated the procedure well. We will await the final pathology results and have her continue to offload pressure on the left buttock and have her return in the office in one week to remove the sutures and discuss the pathology results. Job ID: [id number] DocumentID: [id number] Dictated Date: 03/30/2022 11:05:18 Solutions Analyst Date: 03/30/2022 15:36:32 Dictated By: FRENCH DENIS MD
== END 2022-03-30 13:40 | disposition home or self-care (01) ==
LOC: SDC 09:54
PROVIDERS: ATTEND Surgery
DX: D22.5 Melanocytic nevi of trunk (principal); M79.81 Nontraumatic hematoma of soft tissue; D48.5 Neoplasm of uncertain behavior of skin; Z79.899 Other long term (current) drug therapy
CPT/HCPCS: 87081

== ENCOUNTER 2022-07-27 13:07 | Inpatient (IN) | payer MEDICARE, OTHER ==
[~2022-07-27] VITALS: Ht 152.4 cm; Wt 67.7 kg
[~2022-07-27 13:07] MED LIST changes: +ALBU8.5H6 IH; +ALBU8.5H6 INH; -LACTATED RINGERS 1,000 ML IV PRN; -RT-ALBUINH IH; -RT-ALBUINH INH; +TRM50T PO
[2022-07-27 13:49] LABS: BASOPHILS % (AUTO) 1 % (0-10); EOSINOPHILS # (AUTO) 0.1 10^3/uL (0.0-0.3); EOSINOPHILS % (AUTO) 2 % (0-10); HEMATOCRIT 54 % (35-52); HEMOGLOBIN 17.1 g/dL (11.5-16.0); LYMPHOCYTES # (AUTO) 0.9 10^3/uL (1.0-4.0); LYMPHOCYTES % (AUTO) 15 % (12-44); MEAN CORPUSCULAR HEMOGLOBIN 27 pg (25-34); MEAN CORPUSCULAR HGB CONC 32 g/dL (32-36); MEAN CORPUSCULAR VOLUME 85 fL (80-99); MEAN PLATELET VOLUME 10.2 fL (9.0-12.2); MONOCYTES # (AUTO) 0.5 10^3/uL (0.0-1.0); MONOCYTES % (AUTO) 8 % (0-12); NEUTROPHILS # (AUTO) 4.4 10^3/uL (1.8-7.8); NEUTROPHILS % (AUTO) 74 % (42-75); PLATELET COUNT 295 10^3/uL (130-400)
[2022-07-27 13:58] LABS: INR 1.6 (0.8-1.4); PROTHROMBIN TIME PATIENT 19.8 SEC (12.2-14.7)
[2022-07-27 14:09] LABS: BILIRUBIN,URINE NEGATIVE (NEGATIVE); CLARITY,URINE CLEAR; COLOR,URINE YELLOW; GLUCOSE, URINE (UA) 3+ (NEGATIVE); KETONES,URINE 1+ (NEGATIVE); LEUKOCYTE ESTERASE ,URINE NEGATIVE (NEGATIVE); NITRITE,URINE NEGATIVE (NEGATIVE); PROTEIN,URINE NEGATIVE (NEGATIVE)
[2022-07-27 14:13] LABS: ALBUMIN 4.4 GM/DL (3.2-4.5); CALCIUM 9.6 MG/DL (8.5-10.1); CREATININE SERUM 1.03 MG/DL (0.60-1.30); MAGNESIUM 2.2 MG/DL (1.6-2.4); TOTAL PROTEIN 7.7 GM/DL (6.4-8.2)
--- NOTE | 2022-07-27 14:15 | Diagnostic Imaging Report ---
INDICATION: Chest pain. TECHNIQUE: Portable AP view of the chest is obtained with comparison made to study of 11/02/2021. FINDINGS: Heart size is at the upper limits of normal. Pulmonary vascularity is unremarkable. There is no pneumothorax or consolidation. There is dense calcification at the mitral valve annulus. No significant pleural fluid is seen. IMPRESSION: No evidence of acute abnormality or significant adverse change. Dictated by: Dictated on workstation # [id number]
[2022-07-27 14:17] LABS: BACTERIA,URINE TRACE /HPF; WBC,URINE 0-2 /HPF
--- NOTE | 2022-07-27 14:18 | ED Cardiac General ---
History of Present Illness General Chief Complaint: Chest Pain Stated Complaint: CHEST PAIN Nursing Triage Note: PT TO RM 2 PT STATES HAS HAD C/P FOR 2 DAYS HURTS ALL THE TIME BUT UP TO 10/10 A TIMES PT CO OF SOA. PT IS ALSO DIABETIC, PT STATES FEELS LIKE IS IN A-FIB Source: patient Exam Limitations: no limitations History of Present Illness Date Seen by Provider: Jul 27, 2022 Time Seen by Provider: 13:31 Initial Comments 82-year-old female presents with family with reports of substernal chest pain with intermittent sharp left-sided chest pain since yesterday. States the pain is unrelated to exertion. States her heart rate is also been elevated since yesterday. Has history of atrial fibrillation/flutter, takes amiodarone. States her heart rate is usually in the upper 40s lower 50s, usually takes half a tablet of amiodarone 200mg but states she took a full tablet last night and another full tab this morning due to heart rate being 114. States she had a heart ablation over 10 years ago, has 1 cardiac stent, denies history of GA or CHF. Also complains of dizziness at times and headache. Reports some shortness of air, states it is difficult to take a deep breath. Denies abdominal pain, nausea/vomiting, diarrhea, fever/chills. States she was started on Jardiance about a week ago, reports increased thirst and increased urination since starting. States she does not like taking Jardiance due to constantly having to use the bathroom. Denies dysuria, states that her urine has an odor. Associated Systoms: No Fever/Chills; Headaches; No Nausea/Vomiting; Shortness of Air Allergies and Home Medications Allergies Coded Allergies: warfarin (Unverified Allergy, Severe, BLEEDING, 03/29/22) azithromycin (Verified Allergy, Unknown, 03/29/22) cephalexin (Verified Allergy, Unknown, 03/29/22) heparin (Verified Allergy, Unknown, 07/27/22) levofloxacin (Verified Allergy, Unknown, 03/29/22) meloxicam (Verified Allergy, Unknown, 03/29/22) metoprolol (Verified Allergy, Unknown, NECK SPASMS, 03/29/22) metronidazole (Verified Allergy, Unknown, 03/29/22) morphine (Verified Allergy, Unknown, 03/29/22) theophylline (Verified Allergy, Unknown, 03/29/22) prednisone (Verified Adverse Reaction, Intermediate, STOMACH BLEED, 03/29/22) norfloxacin (Verified Adverse Reaction, Unknown, GI INTOLERANCE, 03/29/22) trovafloxacin (Verified Adverse Reaction, Unknown, GI INTOLERANCE, 03/29/22) Uncoded Allergies: BRIL (Allergy, Unknown, 07/27/22) Patient Home Medication List Home Medication List Reviewed: Yes Albuterol Sulfate (Ventolin Hfa) 1 Puff Puff, 2 PUFF IH Q4H PRN for SHORTNESS OF BREATH, (Reported) Entered as Reported by: KAMI CURRY on 07/21/21 09 Amiodarone HCl (Amiodarone HCl) 200 Mg Tablet, 100 MG PO DAILY, (Reported) Entered as Reported by: KAMI CURRY on 11/02/21 09 Fluticasone/Salmeterol (Advair Hfa 115-21 Mcg Inhaler) 12 Gm Hfa.aer.ad, 1 PUFF IH BID, (Reported) Entered as Reported by: KAMI CURRY on 07/21/21 09 Glipizide (Glipizide) 5 Mg Tablet, 5 MG PO BID, (Reported) Entered as Reported by: ERIN QUINTEROS on 01/27/20 0952 Levothyroxine Sodium (Levothyroxine Sodium) 75 Mcg Tablet, 75 MCG PO , (Reported) Entered as Reported by: CAMRON KEMP on 10/10/18 1300 Liraglutide (Victoza 2-Abdirizak) 0.6 Mg/0.1 Ml Pen.injctr, 1.2 MG SQ DAILY, (Reported) Entered as Reported by: KAMI CURRY on 07/21/21 0847 Ondansetron (Ondansetron Odt) 4 Mg Tab.rapdis, 4 MG PO Q4H PRN for NAUSEA/VOM ITING-1ST LINE, (Reported) Entered as Reported by: KAMI CURRY on 11/02/21 0952 Rivaroxaban (Xarelto) 20 Mg Tablet, 20 MG PO 1700, (Reported) Entered as Reported by: KAMI CURRY on 07/21/21 0919 Tramadol HCl (Tramadol HCl) 50 Mg Tablet, 50-100 MG PO Q4H PRN for pain Prescribed by: TIMOTHY RAMIREZ on 03/30/22 1009 Review of Systems Review of Systems Constitutional: see HPI Past Stsmqyb-Kvdshh-Kpejlq Hx Patient Social History Tobacco Use?: No Substance use?: No Alcohol Use?: No Pt feels they are or have been: No Immunizations Up To Date Tetanus Booster (TDap): Unknown Influenza Vaccine Up-to-Date: Yes; Up-to-Date First/Initial COVID19 Vaccinat: SPRING 2020 Second COVID19 Vaccination Gera: SPRING 2020 Third COVID19 Vaccination Date: MAY 2021 Seasonal Allergies Seasonal Allergies: Yes Past Medical History Surgery/Hospitalization HX: hypertension, diabetic, GI bleeding, cardiac Surgeries: Yes (R CTR;SINUS;R FOOT;BILAT TKR;CARDIAC ABLATION;CARDIAC CATH- STENTS X1;LINQ ) Cardiac, Coronary Stent, Gallbladder, Hysterectomy, Orthopedic, Thyroidectomy Respiratory: Yes (asthma) Asthma, Pulmonary Embolism, COPD Currently Using CPAP: No Currently Using BIPAP: No Cardiac: Yes (stents x 3, HEART ABLATION - DR AGUILAR/BRANDIE) Atrial Fibrillation, High Cholesterol, Hypertension Neurological: No Reproductive Disorders: No Female Reproductive Disorders: Denies Sexually Transmitted Disease: No HIV/AIDS: No Genitourinary: No Gastrointestinal: No (stomach bleeds) Gastroesophageal Reflux, Gastrointestinal Bleed Musculoskeletal: No Arthritis, Rheumatoid Arthritis Endocrine: Yes (right thyroidectomy) Diabetes, Non-Insulin dep HEENT: No Cataract Loss of Vision: Denies Hearing Impairment: Denies Cancer: No Psychosocial: Yes Anxiety Integumentary: Yes (MASS ON BUTTOCK) Blood Disorders: No Adverse Reaction/Blood Tranf: No (HAS HAD BLOOD WITH NO REACTION) Family Medical History Arthritis 19 FATHER G8 SISTER Congenital heart disease 19 MOTHER G8 BROTHER Diabetes mellitus G8 BROTHER FH: CHF (congestive heart failure) 19 FATHER 19 MOTHER G8 BROTHER FH: CVA (cerebrovascular accident) 19 MOTHER G8 SISTER FH: hypercholesterolemia FH: musculoskeletal disease 19 FATHER G8 SISTER Glaucoma G8 SISTER Hypercholesterolemia Hypertension 19 MOTHER G8 SISTER Myocardial infarction G8 BROTHER Heart Disease, Diabetes, Hypertension PSH: -1965-UTERINE SUSPENSION -1975-HYSTERECTOMY -1978-RIGHT CARPAL TUNNEL -1984-CHOLECYSTECTOMY -1987-SINUS SURGERY/POLYP REMOVAL -1991-RIGHT FOOT SURGERY -2006-RIGHT THYROIDECTOMY -2007-LEFT TOTAL KNEE REPLACEMENT -2011-CARDIAC CATH--STENT X 1 AND ANGIOPLASTY -2012-BILATERAL CATARACT SURGERIES -REVEAL LINQ DEVICE IMPLANTED -04/2018-CARDIAC ABLATION AT FOR ATRIAL FIBRILLATION 04/2018-HAND SURGERY Physical Exam Vital Signs Vital Signs - First Documented 07/27/22 13:12 Pulse 104 Resp 31 B/P (MAP) 163/97 (119) Pulse Ox 96 O2 Delivery Room Air Capillary Refill : Less Than 3 Seconds Height, Weight, BMI Height: 5'1.00" Weight: 160lbs. 5.0oz. 72.901865tp; 26.00 BMI Method:Stated General Appearance: No Apparent Distress, WD/WN Neck: Normal Inspection, Supple Respiratory: Lungs Clear, Normal Breath Sounds, No Accessory Muscle Use, No Respiratory Distress Cardiovascular: No Edema, No Gallop, No JVD, No Murmur, Tachycardia Extremity: Normal Inspection, Normal Range of Motion Neurologic/Psychiatric: Alert, Oriented x3, Normal Mood/Affect Skin: Normal Color, Warm/Dry Progress/Results/Core Measures Results/Orders Lab Results Laboratory Tests Test 07/27/22 13:15 07/27/22 14:00 Range/Units White Blood Count 6.0 4.3-11.0 10^3/uL Red Blood Count 6.38 H 3.80-5.11 10^6/uL Hemoglobin 17.1 H 11.5-16.0 g/dL Hematocrit 54 H 35-52 % Mean Corpuscular Volume 85 80-99 fL Mean Corpuscular Hemoglobin 27 25-34 pg Mean Corpuscular Hemoglobin Concent 32 32-36 g/dL Red Cell Distribution Width 16.2 H 10.0-14.5 % Platelet Count 295 130-400 10^3/uL Mean Platelet Volume 10.2 9.0-12.2 fL Immature Granulocyte % (Auto) 1 % Neutrophils (%) (Auto) 74 42-75 % Lymphocytes (%) (Auto) 15 12-44 % Monocytes (%) (Auto) 8 0-12 % Eosinophils (%) (Auto) 2 0-10 % Basophils (%) (Auto) 1 0-10 % Neutrophils # (Auto) 4.4 1.8-7.8 10^3/uL Lymphocytes # (Auto) 0.9 L 1.0-4.0 10^3/uL Monocytes # (Auto) 0.5 0.0-1.0 10^3/uL Eosinophils # (Auto) 0.1 0.0-0.3 10^3/uL Basophils # (Auto) 0.0 0.0-0.1 10^3/uL Immature Granulocyte # (Auto) 0.0 0.0-0.1 10^3/uL Prothrombin Time 19.8 H 12.2-14.7 SEC INR Comment 1.6 H 0.8-1.4 Activated Partial Thromboplast Time 41 H 24-35 SEC D-Dimer < 0.27 0.00-0.49 UG/ML Sodium Level 139 135-145 MMOL/L Potassium Level 4.0 3.6-5.0 MMOL/L Chloride Level 104 98-107 MMOL/L Carbon Dioxide Level 23 21-32 MMOL/L Anion Gap 12 5-14 MMOL/L Blood Urea Nitrogen 15 7-18 MG/DL Creatinine 1.03 0.60-1.30 MG/DL Estimat Glomerular Filtration Rate 55 BUN/Creatinine Ratio 15 Glucose Level 250 H 70-105 MG/DL Calcium Level 9.6 8.5-10.1 MG/DL Corrected Calcium 9.3 8.5-10.1 MG/DL Magnesium Level 2.2 1.6-2.4 MG/DL Total Bilirubin 1.0 0.1-1.0 MG/DL Aspartate Amino Transf (AST/SGOT) 52 H 5-34 U/L Alanine Aminotransferase (ALT/SGPT) 50 0-55 U/L Alkaline Phosphatase 78 40-136 U/L Myoglobin 100.4 H 10.0-92.0 NG/ML Troponin I < 0.028 <0.028 NG/ML B-Type Natriuretic Peptide 124.4 H <100.0 PG/ML Total Protein 7.7 6.4-8.2 GM/DL Albumin 4.4 3.2-4.5 GM/DL Urine Color YELLOW Urine Clarity CLEAR Urine pH 5.0 5-9 Urine Specific Blanco 1.025 H 1.016-1.022 Urine Protein NEGATIVE NEGATIVE Urine Glucose (UA) 3+ H NEGATIVE Urine Ketones 1+ H NEGATIVE Urine Nitrite NEGATIVE NEGATIVE Urine Bilirubin NEGATIVE NEGATIVE Urine Urobilinogen 0.2 < = 1.0 MG/DL Urine Leukocyte Esterase NEGATIVE NEGATIVE Urine RBC (Auto) NEGATIVE NEGATIVE Urine RBC NONE /HPF Urine WBC 0-2 /HPF Urine Squamous Epithelial Cells 2-5 /HPF Urine Crystals NONE /LPF Urine Bacteria TRACE /HPF Urine Casts NONE /LPF Urine Mucus NEGATIVE /LPF Urine Culture Indicated NO My Orders Orders - LIEN DICKEY APRN Cbc With Automated Diff (07/27/22 13:42) Magnesium (07/27/22 13:42) Chest 1 View, Ap/Pa Only (07/27/22 13:42) Comprehensive Metabolic Panel (07/27/22 13:42) Myoglobin Serum (07/27/22 13:42) Protime With Inr (07/27/22 13:42) Partial Thromboplastin Time (07/27/22 13:42) Monitor-Rhythm Ecg Trace Only (07/27/22 13:42) Ed Iv/Invasive Line Start (07/27/22 13:42) Bnp Salma (07/27/22 13:42) Troponin I Samla (07/27/22 13:42) Ua Culture If Indicated (07/27/22 13:42) Fibrin Degradation Products (07/27/22 13:43) Ekg Tracing (07/27/22 14:10) Diltiazem Injection (Cardizem Injection) (07/27/22 14:30) Ekg Tracing (07/27/22 14:24) Diltiazem Drip Pre-Mix (Cardizem Drip Pr (07/27/22 14:45) Ed Admission (Communication) (07/27/22 15:13) Medications Given in ED Current Medications Medications Dose Ordered Sig/Mary Route Start Time Stop Time Status Last Admin Dose Admin Diltiazem HCl 10 mg ONCE ONCE IVP 07/27/22 14:30 07/27/22 14:31 DC 07/27/22 14:33 10 MG Vital Signs/I&O 07/27/22 07/27/22 07/27/22 13:12 14:33 15:02 Pulse 104 104 88 Resp 31 B/P (MAP) 163/97 (119) 148/93 128/76 Pulse Ox 96 O2 Delivery Room Air Blood Pressure Mean: 119 Progress Progress Note #1: Time: 13:45 Progress Note Patient seen and evaluated, resting on bed, no acute distress. Based on exam and symptoms, differential diagnosis includes but is not limited to GA, arrhythmia, PE, ACS, pleuritis, pneumonia, ACS, urinary tract infection. Work- up initiated including CBC, CMP, troponin, D-dimer, chest x-ray, UA. Progress Note #2: Time: 14:20 Progress Note Lab results reviewed, CBC showed elevated hemoglobin 17.1, elevated hematocrit 54, elevated RBCs 6.3. CMP showed glucose of 250, otherwise normal. Coags elevated, PT 19.8, INR 1.6, APTT 41. Troponin negative, BNP 124.4. Urinalysis negative for infection, positive for glucose. Chest x-ray reviewed, heart size is at the upper limit of normal, otherwise no acute cardiopulmonary findings. Initial ECG Impression Date: Jul 27, 2022 Initial ECG Impression Time: 13:29 Initial ECG Rate: 104 Initial ECG Rhythm: S.Tach Initial ECG Intervals: QT Initial ECG Intervals QTc 473 Initial ECG Comparisson: Changed Comment Incomplete left bundle branch block. EKG : EKG Time: 14:34 Rate: 94 Rhythm: A Fib/Flutter Intervals: QT Intervals Qtc 507 Comment Similar to previous EKG done today, but can better see the 2:[address] atrial [address]utter. Confirmed by Dr. Aguilar. Diagnostic Imaging Diagonstic Imaging: Xray Plain Films/CT/US/NM/MRI: chest Comments [facility]. [place], [place] NAME: [facility] REC#: [id number] PT STATUS: REG ER : 1940 PHYSICIAN: LIEN DICKEY APRN ADMIT DATE: 07/27/22/ER Signed Date of Exam:07/27/22 CHEST 1 VIEW, AP/PA ONLY INDICATION: Chest pain. TECHNIQUE: Portable AP view of the chest is obtained with comparison made to study of 11/02/2021. FINDINGS: Heart size is at the upper limits of normal. Pulmonary vascularity is unremarkable. There is no pneumothorax or consolidation. There is dense calcification at the mitral valve annulus. No significant pleural fluid is seen. IMPRESSION: No evidence of acute abnormality or significant adverse change. Dictated by: Dictated on workstation # [id number] Dict: 07/27/22 1412 Trans: 07/27/22 1427 [id number] Interpreted by: KAI BORGES MD Electronically signed by: KAI BORGES MD 07/27/22 1427 Departure Communication (Admissions) Time/Spoke to Admitting Phy: 15:[address] ELAINE, patient's PCP, regarding admission. Time/Spoke to Consulting Phy: 14:22 Spoke with patient's restorer paper and prints, Dr. Aguilar. He recommended administering 10 mg of Cardizem and repeating the EKG to hopefully determine the cardiac rhythm the patient is in. Cardizem was administered, EKG repeated, and Dr. Aguilar called to review. Atrial flutter with a 2-1 block was recognized on the EKG. Dr. Aguilar recommends inpatient with a Cardizem drip and to continue home medications including amiodarone and Xarelto. Will consult with Dr. Elaine for admission. Impression Primary Impression: Atrial flutter Additional Impression: Chest pain Disposition: ADMITTED INPATIENT Condition: Stable Admissions Decision to Admit Reason: Admit from ER (General) Decision to Admit/Date: Jul 27, 2022 Time/Decision to Admit Time: 14:44 Departure-Patient Inst. Referrals: JUAN FRANCISCO ELAINE MD (PCP/Family) Primary Care Physician LIEN DICKEY APRN Jul 27, 2022 14:18
[2022-07-27] MEDS ORDERED: dilTIAZem DRIP PRE-MIX 125 ML IV SCH (14:45)
[2022-07-27] MEDS ORDERED: ACETAMINOPHEN 325 MG TABLET PO PRN (16:45)
[2022-07-27] MEDS ORDERED: CATHETER FLUSH 10 ML SYR IVP PRN (16:45)
[2022-07-27] MEDS ORDERED: dilTIAZem DRIP 125 MG/125 ML DRIP IV SCH (16:45)
[2022-07-27] MEDS ORDERED: fentaNYL INJ 100 MCG/2 ML AMP IV PRN (16:45)
--- NOTE | 2022-07-27 17:14 | Tele-ICU Progress Note ---
Progress Note Video assessment done , Hemodynamically stable Available charting reviewed, discussed with RN NO TELE-ICU CONSULT REQUESTED CONTINUE TO MONITOR PER USUAL TELE-ICU PROTOCOL No need for Tele-ICU interventions Plans as delineated by bedside physicians / consultants Atrial flutter with rapid ventricular response, history of paroxysmal atrial fibrillation, multiple episodes in the past. 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 5.0oz. 72.068568uj; 28.28 BMI Method:Stated ARLETH MAST MD Jul 27, 2022 17:14
[2022-07-27] MEDS ORDERED: PANT40SU PO (17:39)
--- NOTE | 2022-07-27 17:42 | History & Physical ---
History of Present Illness History of Present Illness Reason for visit/HPI Pt is an 82 y/o female who is known to me from clinic. She reports that she had not been feeling well for about 24 hours prior to admission through the ER. She states that she felt like her heart was beating fast, thought it would improve. She called to Dr. aguilar's office, was told to go to the ER, but patient thought it would improve. She then continued to have trouble with her symptoms of tachycardia, and she finally presented to the hospital ER for her Afib. She was found to be in Aflutter Date of Admission Jul 27, 2022 at 15:15 Date Seen by a Provider: Jul 27, 2022 Time Seen by a Provider: 17:35 Attending Physician Juan Francisco Elaine MD Admitting Physician Admitting Physician: Juan Francisco Elaine MD Attending Physician: Juan Francisco Elaine MD Consult Dr. Aguilar Allergies and Home Medications Allergies Coded Allergies: warfarin (Unverified Allergy, Severe, BLEEDING, 03/29/22) azithromycin (Verified Allergy, Unknown, 03/29/22) cephalexin (Verified Allergy, Unknown, 03/29/22) heparin (Verified Allergy, Unknown, 07/27/22) levofloxacin (Verified Allergy, Unknown, 03/29/22) meloxicam (Verified Allergy, Unknown, 03/29/22) metoprolol (Verified Allergy, Unknown, NECK SPASMS, 03/29/22) metronidazole (Verified Allergy, Unknown, 03/29/22) morphine (Verified Allergy, Unknown, 03/29/22) theophylline (Verified Allergy, Unknown, 03/29/22) prednisone (Verified Adverse Reaction, Intermediate, STOMACH BLEED, 03/29/22) norfloxacin (Verified Adverse Reaction, Unknown, GI INTOLERANCE, 03/29/22) trovafloxacin (Verified Adverse Reaction, Unknown, GI INTOLERANCE, 03/29/22) Uncoded Allergies: BRIL (Allergy, Unknown, 07/27/22) Patient Home Medication List Home Medication List Reviewed: Yes Albuterol Sulfate (Ventolin Hfa) 1 Puff Puff, 2 PUFF IH Q4H PRN for SHORTNESS OF BREATH, (Reported) Entered as Reported by: KAMI CURRY on 07/21/21 0919 Last Action: Reviewed Amiodarone HCl (Amiodarone HCl) 200 Mg Tablet, 100 MG PO DAILY, (Reported) Entered as Reported by: AKMI CURRY on 11/02/21951 Last Action: Reviewed Empagliflozin (Jardiance) 25 Mg Tablet, 25 MG PO DAILY, (Reported) Entered as Reported by: CAMRON VERDIN on 07/27/221745 Last Action: Held Fluticasone/Salmeterol (Advair Hfa 115-21 Mcg Inhaler) 12 Gm Hfa.aer.ad, 1 PUFF IH BID, (Reported) Entered as Reported by: KAMI CURRY on 07/21/21918 Glipizide (Glipizide) 5 Mg Tablet, 5 MG PO BID, (Reported) Entered as Reported by: ERIN QUINTEROS on 01/27/20951 Last Action: Reviewed Levothyroxine Sodium (Levothyroxine Sodium) 75 Mcg Tablet, 75 MCG PO , (Reported) Entered as Reported by: CAMRON KEMP on 10/10/181299 Last Action: Continued Ondansetron (Ondansetron Odt) 4 Mg Tab.rapdis, 4 MG PO Q4H PRN for NAUSEA/VOMITING-1ST LINE, (Reported) Entered as Reported by: KAMI CURRY on 11/02/21951 Pantoprazole Sodium (Protonix) 20 Mg Tablet., 40 MG PO BID, (Reported) Entered as Reported by: CAMRON VERDIN on 07/27/221744 Last Action: Continued Rivaroxaban (Xarelto) 20 Mg Tablet, 20 MG PO 1700, (Reported) Entered as Reported by: KAMI CURRY on 07/21/21918 Last Action: Continued Tramadol HCl (Tramadol HCl) 50 Mg Tablet, 50-100 MG PO Q4H PRN for pain Prescribed by: TIMOTHY RAMIREZ on 03/30/22 1009 Discontinued Medications Liraglutide (Victoza 2-Abdirizak) 0.6 Mg/0.1 Ml Pen.injctr, 1.2 MG SQ DAILY, (Reported) Discontinued Reason: No Longer Taking Entered as Reported by: KAMI CURRY on 07/21/21 0847 Last Action: Discontinued Pantoprazole Sodium (Protonix) 40 Mg Granpkt., 40 MG PO BID, (Reported) Discontinued Reason: Duplicate Order Entered as Reported by: CAMRON VERDIN on 07/27/22 9629 Last Action: Discontinued Past Qrxbrch-Epzjtm-Hcupcp Hx Patient Social History Marrital Status: Living Status: lives with Employed/Student: retired Tobacco Use?: No Smoking Status: Never a Smoker Smokeless Tobacco Frequency: Never a User Use of E-Cig and/or Vaping dev: No Substance use?: No Alcohol Use?: No Pt feels they are or have been: No Immunizations Up To Date Date of Influenza Vaccine: Apr 08, 2022 First/Initial COVID19 Vaccinat: SPRING 2020 Second COVID19 Vaccination Gera: SPRING 2020 Tetanus Booster (TDap): Unknown Date of Pneumonia Vaccine: Jul 09, 2016 Seasonal Allergies Seasonal Allergies: Yes Current Status status: No status: No Advance Directives: Yes Advance Directive Location: Family to bring in copy Communicates: Verbally Primary Language: Micronesian Preferred Spoken Language: Micronesian Is interpretation needed?: No Implanted or Applied Medical D: Orthopedic hardware, Stents Past Medical History Surgeries: Cardiac, Coronary Stent, Gallbladder, Hysterectomy, Orthopedic, Thyroidectomy Asthma, Pulmonary Embolism, COPD Currently Using CPAP: No Currently Using BIPAP: No Atrial Fibrillation, High Cholesterol, Hypertension Sexually Transmitted Disease: No HIV/AIDS: No Gastroesophageal Reflux, Gastrointestinal Bleed Arthritis, Rheumatoid Arthritis Diabetes, Non-Insulin dep Cataract Loss of Vision: Denies Hearing Impairment: Denies Anxiety Blood Disorders: No Adverse Reaction/Blood Tranf: No (HAS HAD BLOOD WITH NO REACTION) Family Medical History Reviewed and Corrections made Arthritis 19 FATHER G8 SISTER Congenital heart disease 19 MOTHER G8 BROTHER Diabetes mellitus G8 BROTHER FH: CHF (congestive heart failure) 19 FATHER 19 MOTHER G8 BROTHER FH: CVA (cerebrovascular accident) 19 MOTHER G8 SISTER FH: hypercholesterolemia FH: musculoskeletal disease 19 FATHER G8 SISTER Glaucoma G8 SISTER Hypercholesterolemia Hypertension 19 MOTHER G8 SISTER Myocardial infarction G8 BROTHER Heart Disease, Diabetes, Hypertension PSH: -1965-UTERINE SUSPENSION -1975-HYSTERECTOMY -1978-RIGHT CARPAL TUNNEL -1984-CHOLECYSTECTOMY -1987-SINUS SURGERY/POLYP REMOVAL -1991-RIGHT FOOT SURGERY -2006-RIGHT THYROIDECTOMY -2007-LEFT TOTAL KNEE REPLACEMENT -2011-CARDIAC CATH--STENT X 1 AND ANGIOPLASTY -2012-BILATERAL CATARACT SURGERIES -REVEAL LINQ DEVICE IMPLANTED -04/2018-CARDIAC ABLATION AT FOR ATRIAL FIBRILLATION 04/2018-HAND SURGERY Review of Systems Constitutional: No chills, No fever, No malaise, No weakness EENTM: No hoarseness, No throat pain Respiratory: No cough, No dyspnea on exertion, No short of breath Cardiovascular: No chest pain; palpitations Gastrointestinal: No abdominal pain, No loss of appetite, No nausea, No vomiting Genitourinary: frequency : No Musculoskeletal: No back pain, No muscle weakness Skin: no symptoms reported Psychiatric/Neurological: Denies Anxiety, Denies Depressed, Denies Weakness All Other Systems Reviewed Negative Unless Noted: Yes Physical Exam Vital Signs Vital Signs - First Documented 07/27/22 07/27/22 13:12 15:27 Temp 36.3 Pulse 104 Resp 31 B/P (MAP) 163/97 (119) Pulse Ox 96 O2 Delivery Room Air Capillary Refill : NONE Height, Weight, BMI Height: 5'1.00" Weight: 160lbs. 5.0oz. 72.476400sf; 28.28 BMI Method:Stated General Appearance: No Apparent Distress, WD/WN HEENT: PERRL/EOMI, Pharynx Normal Neck: Full Range of Motion, Supple Respiratory: Chest Non Tender, Lungs Clear, Normal Breath Sounds, No Accessory Muscle Use, No Respiratory Distress Cardiovascular: Irregularly Irregular Gastrointestinal: Normal Bowel Sounds, Non Tender, Soft Rectal: Deferred Extremity: Normal Capillary Refill, Non Tender, No Calf Tenderness, No Pedal Edema Neurologic/Psychiatric: Alert, Oriented x3, No Motor/Sensory Deficits, Normal Mood/Affect Skin: Normal Color, Warm/Dry Lymphatic: No Adenopathy Assessment/Plan Assessment and Plan Atrial flutter Chronic Atrial Fibrillation Hypothyroidism Diabetes Mellitus Urinary frequency Dry mouth Chronic Asthma Atrial flutter with Chronic Atrial Fibrillation - pt admitted on drip, continue with xarelto - - consult to Dr. Aguilar with plans for cardioversion if she does not convert on her own overnight tonight. Hypothyroidism - continue with home regimen of levothyroxine Diabetes Mellitus - pt on glipizide and jardiance - resume home medication tomorrow or on dc depending on dc date. - dry mouth from the jardiance with frequent drinking of fluid leading to incontinence - recommended otc xylimelt or act lozenges Urinary frequency due to jardiance leading to excessive drinking of fluid - monitor symptoms with decreased water intake - may need to change the jardiance. Dry mouth - start xylimelt or act lozenges. Chronic Asthma - supportive care only at this time. Admission Diagnosis Atrial flutter Chronic Atrial Fibrillation Hypothyroidism Diabetes Mellitus Urinary frequency Dry mouth Chronic Asthma Admission Status: Inpatient Order (span 2 midnights) Reason for Inpatient Admission: inpatient admission for atrial flutter, anticipate 2 midnights in the hospital for treatment JUAN FRANCISCO ELAINE MD Jul 27, 2022 17:42
[2022-07-27] MEDS ORDERED: PANT20TA2 PO (17:45)
[2022-07-27] MEDS ORDERED: EMPA25TA PO (17:46)
[2022-07-27] MEDS ORDERED: PATIENT MAY USE OWN MEDS, ALL MC SCH (18:15)
[2022-07-27] MEDS ORDERED: RIVAROXABAN 20 MG TABLET (XARELTO) PO SCH ×2 (18:15→18:30)
[2022-07-27] MEDS: PANTOPRAZOLE 20 MG TABLET (PROTONIX) PO SCH (21:13)
[2022-07-27] MEDS: inSUlin ASPART (NovoLOG) 1 UNIT/0.01 ML (CHARGE PER UNIT) SC SCH (21:14)
[2022-07-27] MEDS: CATHETER FLUSH 10 ML SYR IVP SCH (21:48)
[2022-07-28 05:16] LABS: BASOPHILS # (AUTO) 0.1 10^3/uL (0.0-0.1); BASOPHILS % (AUTO) 1 % (0-10); EOSINOPHILS # (AUTO) 0.3 10^3/uL (0.0-0.3); EOSINOPHILS % (AUTO) 6 % (0-10); HEMATOCRIT 47 % (35-52); HEMOGLOBIN 15.1 g/dL (11.5-16.0); LYMPHOCYTES % (AUTO) 23 % (12-44); MEAN CORPUSCULAR HEMOGLOBIN 27 pg (25-34); MEAN CORPUSCULAR HGB CONC 32 g/dL (32-36); MEAN CORPUSCULAR VOLUME 84 fL (80-99); MEAN PLATELET VOLUME 10.5 fL (9.0-12.2); MONOCYTES # (AUTO) 0.6 10^3/uL (0.0-1.0); MONOCYTES % (AUTO) 13 % (0-12); NEUTROPHILS # (AUTO) 2.5 10^3/uL (1.8-7.8); NEUTROPHILS % (AUTO) 57 % (42-75); PLATELET COUNT 250 10^3/uL (130-400); WHITE BLOOD COUNT 4.4 10^3/uL (4.3-11.0)
[2022-07-28 05:33] LABS: CREATININE SERUM 0.86 MG/DL (0.60-1.30); POTASSIUM 3.9 MMOL/L (3.6-5.0)
[2022-07-28] MEDS: inSUlin ASPART (NovoLOG) 1 UNIT/0.01 ML (CHARGE PER UNIT) SC SCH ×2 (05:40→11:33)
[2022-07-28] MEDS: CATHETER FLUSH 10 ML SYR IVP SCH (06:03)
[2022-07-28] MEDS ORDERED: LEVOTHYROXINE 75 MCG (LEVOTHROID) TABLET PO SCH (06:30)
[2022-07-28] MEDS ORDERED: NS IV 500 ML 500 ML ONE (08:51)
--- NOTE | 2022-07-28 08:56 | Consultation-Cardiology ---
HPI-Cardiology Cardiology Consultation Date of Consultation 07/28/22 Date of Admission Time Seen by Provider: 08:51 Indication: Atrial flutter HPI 82-year-old lady with a history of paroxysmal atrial fibrillation/flutter, coronary artery disease, hypertension. Was in her usual state of health until 2 days ago when she started to have palpitation, felt her heart racing. Took to amiodarone. Continue to have palpitation with borderline tachycardia, came into the emergency room yesterday and noted to be in atrial flutter with borderline tachycardia. She denied any chest pain. No shortness of breath. No syncope or near syncopal episodes. Patient reported that she has skipped Xarelto few days about 2 weeks ago prior to having dental extraction. Home Medications & Allergies Allergies: Coded Allergies: warfarin (Unverified Allergy, Severe, BLEEDING, 03/29/22) azithromycin (Verified Allergy, Unknown, 03/29/22) cephalexin (Verified Allergy, Unknown, 03/29/22) heparin (Verified Allergy, Unknown, 07/27/22) levofloxacin (Verified Allergy, Unknown, 03/29/22) meloxicam (Verified Allergy, Unknown, 03/29/22) metoprolol (Verified Allergy, Unknown, NECK SPASMS, 03/29/22) metronidazole (Verified Allergy, Unknown, 03/29/22) morphine (Verified Allergy, Unknown, 03/29/22) theophylline (Verified Allergy, Unknown, 03/29/22) prednisone (Verified Adverse Reaction, Intermediate, STOMACH BLEED, 03/29/22) norfloxacin (Verified Adverse Reaction, Unknown, GI INTOLERANCE, 03/29/22) trovafloxacin (Verified Adverse Reaction, Unknown, GI INTOLERANCE, 03/29/22) Uncoded Allergies: BRIL (Allergy, Unknown, 07/27/22) Home Medication List Reviewed: Yes [id number] Hx Patient Social History Marital Status: Employed/Student: retired Smoking Status: Never a Smoker 2nd Hand Smoke Exposure: No Recent Hopitalizations: No Have you traveled recently?: No Alcohol Use?: No Immunizations Up To Date Tetanus Booster (TDap): Unknown Date of Pneumonia Vaccine: Jul 09, 2016 Date of Influenza Vaccine: Apr 08, 2022 Past Medical History Discussed below Family Medical History Significant Family History: Heart Disease, Diabetes, Hypertension Family History: Arthritis 19 FATHER G8 SISTER Congenital heart disease 19 MOTHER G8 BROTHER Diabetes mellitus G8 BROTHER FH: CHF (congestive heart failure) 19 FATHER 19 MOTHER G8 BROTHER FH: CVA (cerebrovascular accident) 19 MOTHER G8 SISTER FH: hypercholesterolemia FH: musculoskeletal disease 19 FATHER G8 SISTER Glaucoma G8 SISTER Hypercholesterolemia Hypertension 19 MOTHER G8 SISTER Myocardial infarction G8 BROTHER Review of Systems-General Review of Systems Constitutional: see HPI, malaise EENTM: see HPI, no symptoms reported Respiratory: no symptoms reported, see HPI Cardiovascular: see HPI; No chest pain, No edema, No Hx of Intervention; palpitations; No syncope, No vascular heart diseas, No other Gastrointestinal: no symptoms reported, see HPI Genitourinary: no symptoms reported, see HPI Musculoskeletal: no symptoms reported, see HPI Skin: no symptoms reported, see HPI Psychiatric/Neurological: No Symptoms Reported, See HPI Reviewed Test Results Reviewed Test Results Lab Laboratory Tests Test 07/27/22 13:15 07/27/22 14:00 07/27/22 17:21 07/27/22 20:28 Range/Units White Blood Count 6.0 4.3-11.0 10^3/uL Red Blood Count 6.38 H 3.80-5.11 10^6/uL Hemoglobin 17.1 H 11.5-16.0 g/dL Hematocrit 54 H 35-52 % Mean Corpuscular Volume 85 80-99 fL Mean Corpuscular Hemoglobin 27 25-34 pg Mean Corpuscular Hemoglobin Concent 32 32-36 g/dL Red Cell Distribution Width 16.2 H 10.0-14.5 % Platelet Count 295 130-400 10^3/uL Mean Platelet Volume 10.2 9.0-12.2 fL Immature Granulocyte % (Auto) 1 % Neutrophils (%) (Auto) 74 42-75 % Lymphocytes (%) (Auto) 15 12-44 % Monocytes (%) (Auto) 8 0-12 % Eosinophils (%) (Auto) 2 0-10 % Basophils (%) (Auto) 1 0-10 % Neutrophils # (Auto) 4.4 1.8-7.8 10^3/uL Lymphocytes # (Auto) 0.9 L 1.0-4.0 10^3/uL Monocytes # (Auto) 0.5 0.0-1.0 10^3/uL Eosinophils # (Auto) 0.1 0.0-0.3 10^3/uL Basophils # (Auto) 0.0 0.0-0.1 10^3/uL Immature Granulocyte # (Auto) 0.0 0.0-0.1 10^3/uL Prothrombin Time 19.8 H 12.2-14.7 SEC INR Comment 1.6 H 0.8-1.4 Activated Partial Thromboplast Time 41 H 24-35 SEC D-Dimer < 0.27 0.00-0.49 UG/ML Sodium Level 139 135-145 MMOL/L Potassium Level 4.0 3.6-5.0 MMOL/L Chloride Level 104 98-107 MMOL/L Carbon Dioxide Level 23 21-32 MMOL/L Anion Gap 12 5-14 MMOL/L Blood Urea Nitrogen 15 7-18 MG/DL Creatinine 1.03 0.60-1.30 MG/DL Estimat Glomerular Filtration Rate 55 BUN/Creatinine Ratio 15 Glucose Level 250 H 70-105 MG/DL Calcium Level 9.6 8.5-10.1 MG/DL Corrected Calcium 9.3 8.5-10.1 MG/DL Magnesium Level 2.2 1.6-2.4 MG/DL Total Bilirubin 1.0 0.1-1.0 MG/DL Aspartate Amino Transf (AST/SGOT) 52 H 5-34 U/L Alanine Aminotransferase (ALT/SGPT) 50 0-55 U/L Alkaline Phosphatase 78 40-136 U/L Myoglobin 100.4 H 10.0-92.0 NG/ML Troponin I < 0.028 <0.028 NG/ML B-Type Natriuretic Peptide 124.4 H <100.0 PG/ML Total Protein 7.7 6.4-8.2 GM/DL Albumin 4.4 3.2-4.5 GM/DL Urine Color YELLOW Urine Clarity CLEAR Urine pH 5.0 5-9 Urine Specific [place] 1.025 H 1.016-1.022 Urine Protein NEGATIVE NEGATIVE Urine Glucose (UA) 3+ H NEGATIVE Urine Ketones 1+ H NEGATIVE Urine Nitrite NEGATIVE NEGATIVE Urine Bilirubin NEGATIVE NEGATIVE Urine Urobilinogen 0.2 < = 1.0 MG/DL Urine Leukocyte Esterase NEGATIVE NEGATIVE Urine RBC (Auto) NEGATIVE NEGATIVE Urine RBC NONE /HPF Urine WBC 0-2 /HPF Urine Squamous Epithelial Cells 2-5 /HPF Urine Crystals NONE /LPF Urine Bacteria TRACE /HPF Urine Casts NONE /LPF Urine Mucus NEGATIVE /LPF Urine Culture Indicated NO Glucometer 137 H 268 H 70-110 MG/DL Test 07/28/22 04:56 Range/Units White Blood Count 4.4 4.3-11.0 10^3/uL Red Blood Count 5.58 H 3.80-5.11 10^6/uL Hemoglobin 15.1 11.5-16.0 g/dL Hematocrit 47 35-52 % Mean Corpuscular Volume 84 80-99 fL Mean Corpuscular Hemoglobin 27 25-34 pg Mean Corpuscular Hemoglobin Concent 32 32-36 g/dL Red Cell Distribution Width 15.6 H 10.0-14.5 % Platelet Count 250 130-400 10^3/uL Mean Platelet Volume 10.5 9.0-12.2 fL Immature Granulocyte % (Auto) 1 % Neutrophils (%) (Auto) 57 42-75 % Lymphocytes (%) (Auto) 23 12-44 % Monocytes (%) (Auto) 13 H 0-12 % Eosinophils (%) (Auto) 6 0-10 % Basophils (%) (Auto) 1 0-10 % Neutrophils # (Auto) 2.5 1.8-7.8 10^3/uL Lymphocytes # (Auto) 1.0 1.0-4.0 10^3/uL Monocytes # (Auto) 0.6 0.0-1.0 10^3/uL Eosinophils # (Auto) 0.3 0.0-0.3 10^3/uL Basophils # (Auto) 0.1 0.0-0.1 10^3/uL Immature Granulocyte # (Auto) 0.0 0.0-0.1 10^3/uL Sodium Level 140 135-145 MMOL/L Potassium Level 3.9 3.6-5.0 MMOL/L Chloride Level 108 H 98-107 MMOL/L Carbon Dioxide Level 21 21-32 MMOL/L Anion Gap 11 5-14 MMOL/L Blood Urea Nitrogen 19 H 7-18 MG/DL Creatinine 0.86 0.60-1.30 MG/DL Estimat Glomerular Filtration Rate 68 BUN/Creatinine Ratio 22 Glucose Level 156 H 70-105 MG/DL Calcium Level 9.0 8.5-10.1 MG/DL Magnesium Level 2.0 1.6-2.4 MG/DL Physical Exam Physical Exam Vital Signs Vital Signs - First Documented 07/27/22 07/27/22 13:12 15:27 Temp 36.3 Pulse 104 Resp 31 B/P (MAP) 163/97 (119) Pulse Ox 96 O2 Delivery Room Air Capillary Refill : NONE Height, Weight, BMI Height: 5'1.00" Weight: 160lbs. 5.0oz. 72.023164ng; 29.14 BMI Method:Stated General Appearance: No Apparent Distress, WD/WN Neck: Normal Inspection, Supple Respiratory: Lungs Clear, Normal Breath Sounds, No Accessory Muscle Use, No Respiratory Distress Cardiovascular: No Edema, No Gallop, No JVD, No Murmur, Tachycardia Extremity: Normal Inspection, Normal Range of Motion Neurologic/Psychiatric: Alert, Oriented x3, Normal Mood/Affect Skin: Normal Color, Warm/Dry A/P-Cardiology Admission Diagnosis Atrial flutter History of atrial fibrillation Coronary artery disease Hypertension Assessment/Plan Atrial flutter with controlled rate while on Cardizem drip Usually her heart rate is in the 50s, currently was slightly over 100, maintained on Cardizem drip and heart rate has improved. Patient has skipped few days of Xarelto about 2 weeks ago. I am planning to proceed with LEDY and electrical cardioversion. History of paroxysmal atrial fibrillation, Seen by Dr. Zapien and had ablation in April 2018. Was treated with amiodarone prior to the ablation. Had episode of atrial flutter with RVR 07/20/21, underwent successful cardioversion. Was in atrial flutter on September 13, 2021 and converted to sinus rhythm Discussed possibility of putting another LINq in for further monitoring and stopping Xarelto, patient refusing, reports she had a lot of anxiety while being monitored. Patient is preferring to stay on her OAC [id number] score is 4, yearly risk of stroke without oral anticoagulation is 4 percent, currently on Xarelto. Echocardiogram was done in July 2021 showing normal LV size with EF 60-65 percent, mildly dilated left atrium measuring 4.4 cm, mild , PA 35mmHg. Hypertension, good control at home on current medication. Continue to monitor Hyperlipidemia, unable to tolerate simvastatin, continue to monitor lipids Mild bilateral carotid stenosis, last ultrasound was done in May 2022. History of GI bleed, intolerance to aggressive oral anticoagulations including aspirin and Plavix and Coumadin. Currently maintained on Xarelto. Continue to monitor. Coronary artery disease, History of stent using 3.5x15 mm resolute drug-eluting stent to the LAD expanded to 3.86 mm with excellent results. Cardiac catheterization October 2013 revealed patent stent to the LAD with otherwise moderate disease in the distal LAD. Very small artery distally. Otherwise, no significant obstructive disease. Had an exercise stress echo in October 2015 which showed hypertensive response with normal echocardiographic images with no ischemic changes, unable to tolerate aspirin. Cardiac catheterization was done in November 2017 showing patent stents in the proximal LAD with small vessel disease distally with normal left ventricular end-diastolic pressure. 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 Tortuous RCA with mild disease, mild disease in the circumflex. GERD, restarted on Protonix Anemia, continue to monitor H&H Hypothyroidism, Monitored and managed by primary care physician Pulmonary nodule, noted on CT scan, followed by Dr. Mcmullen COPD, bronchial asthma, allergy, followed by Dr. Mcmullen Diabetes mellitus, managed and followed by primary care physician. Anxiety, management per PCP LEANNA DSOUZA MD Jul 28, 2022 08:56
--- NOTE | 2022-07-28 09:00 | Cardiac Procedure Note-CS/ASA ---
Pre-Procedure Note Pre-Op Procedure Note Date of Available H&P: Jul 28, 2022 Date H&P Reviewed: Jul 28, 2022 Time H&P Reviewed: 08:59 History & Physical: H&P Reviewed, Patient Examed, No changes noted Pre-Operative Diagnosis: Atrial flutter Conscious Sedation Pre-Proced Time 09:00 ASA Score 3 For ASA 3 and 4: Consider anesthesia and medical clearance. Also, for patients with a history of failed moderate sedation consider anesthesia. Airway Lungs Heart ASA score ASA 1: a normal healthy patient ASA 2: a patient with a mild systemic disease (mid diabetes, controlled hypertension, obesity ASA 3: a patient with a severe systemic disease that limits activity (angina, COPD, prior Myocardial infarction) ASA 4: a patient with an incapacitating disease that is a constant threat to life (CHF, renal failure) ASA 5: a moribund patient not expected to survive 24 hrs. (ruptured aneurysm) ASA 6: a declared brain- patient whose organs are being harvested. For emergent operations, add the letter E after the classification Mallampati Classification Grade 3 Sedation Plan Analgesia, Amnesia, Plan communicated to team members, Discussed options with patient/fam, Discussed risks with patient/fam The patient is an appropriate candidate to undergo the planned procedure, sedation, and anesthesia. The patient immediately re-assessed prior to indication. LEANNA DSOUZA MD Jul 28, 2022 09:00
--- NOTE | 2022-07-28 09:16 | Cardioversion ---
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 Electrical cardioversion was carried out with anesthesia support with propofol. 120 joules of synchronized shock was delivered through external patches which promptly restored sinus rhythm. The patient tolerated the procedure well. Conclusions: Successful electrical cardioversion and terminating atrial flutter LEANNA AGUILAR MD Jul 28, 2022 09:16
--- NOTE | 2022-07-28 09:24 | Anesthesia-General Post-Op ---
MAC Patient Condition Mental Status/LOC: Same as Preop Cardiovascular: Satisfactory Nausea/Vomiting: Absent Respiratory: Satisfactory Pain: Controlled Complications: Absent Post Op Complications Complications None Follow Up Care/Instructions Patient Instructions None needed. Anesthesiology Discharge Order Discharge Order Patient is doing well, no complaints, stable vital signs, no apparent adverse anesthesia problems. No complications reported per nursing. DEONNA HOPE CRNA Jul 28, 2022 09:24
[2022-07-28] MEDS ORDERED: AMIODARONE 200 MG (CORDARONE) TAB PO SCH (10:00)
[2022-07-28] MEDS ORDERED: AMIODARONE FOR BOLUS 150 MG in NS (IVPB) 100 ML IV ONE (10:00)
--- NOTE | 2022-07-28 10:27 | Discharge Inst-Simple/Standard ---
Discharge Inst-Standard Reconcile Patient Problems Problems Reviewed?: Yes Discharge Medications New, Converted or Re-Newed RX: Other Patient Instructions/Follow Up Plan of Care/Instructions/FU: purchase XYLIMELT or ACT LOZENGES for your dry mouth from jardiance let jeison's office know if you do not have any success with the lozenges and we will decrease the jardiance to 10mg daily - there may be samples available at the office Activity as Tolerated: Yes Discharge Diet: ADA Diet Return to The Hospital For: chest pain, shortness of breath, sensation of flutter in chest or other lifethreatening concerns JUAN FRANCISCO VEGA MD Jul 28, 2022 10:27
[2022-07-28] MEDS ORDERED: proPOfol 200 MG/20 ML (DIPRIVAN) VIAL IV ONE (10:36)
[2022-07-28 10:40] VITALS: BP 114/69
[2022-07-28] MEDS: PANTOPRAZOLE 20 MG TABLET (PROTONIX) PO SCH (10:40)
--- NOTE | 2022-07-28 11:49 | Discharge Summary ---
Discharge Summary Hospital Course Was the Problem List Reviewed?: Yes Hospital Course Date of Admission: Jul 27, 2022 at 15:15 Admission Diagnosis : Family Physician/Provider: Juan Francisco Elaine MD Date of Discharge: 07/28/22 Discharge Diagnosis: [Atrial flutter Chronic Atrial Fibrillation Hypothyroidism Diabetes Mellitus Urinary frequency Dry mouth Chronic Asthma ] Hospital Course: [ Atrial flutter Chronic Atrial Fibrillation Hypothyroidism Diabetes Mellitus Urinary frequency Dry mouth Chronic Asthma Atrial flutter with Chronic Atrial Fibrillation - pt admitted on drip, continue with xarelto - - consult to Dr. Aguilar with plans for cardioversion as below: PROCEDURE PHYSICIAN: Karie Aguilar DATE OF PROCEDURE: 07/28/22 DIRECT EXTERNAL ELECTRICAL CARDIOVERSION: Preoperative diagnoses: Atrial flutter Postoperative diagnosis: Sinus rhythm, Successful Electrical Cardioversion The patient was brought the laborer salvage after informed consent was taken, all the risks and complications were explained including the risk of stroke. Electrical cardioversion was carried out with anesthesia support with propofol. 120 joules of synchronized shock was delivered through external patches which promptly r estored sinus rhythm. The patient tolerated the procedure well. Conclusions: Successful electrical cardioversion and terminating atrial flutter Hypothyroidism - continue with home regimen of levothyroxine Diabetes Mellitus - pt on glipizide and jardiance - resume home medication on dc - dry mouth from the jardiance with frequent drinking of fluid leading to incontinence - recommended otc xylimelt or act lozenges Urinary frequency due to jardiance leading to excessive drinking of fluid - monitor symptoms with decreased water intake - may need to change the jardiance. Dry mouth - start xylimelt or act lozenges. Chronic Asthma - supportive care only at this time. ] Labs and Pending Lab Test: Laboratory Tests 07/27/22 13:15: White Blood Count 6.0, Red Blood Count 6.38H, Hemoglobin 17.1H, Hematocrit 54H, Mean Corpuscular Volume 85, Mean Corpuscular Hemoglobin 27, Mean Corpuscular Hemoglobin Concent 32, Red Cell Distribution Width 16.2H, Platelet Count 295, Mean Platelet Volume 10.2, Immature Granulocyte % (Auto) 1, Neutrophils (%) (Auto) 74, Lymphocytes (%) (Auto) 15, Monocytes (%) (Auto) 8, Eosinophils (%) (Auto) 2, Basophils (%) (Auto) 1, Neutrophils # (Auto) 4.4, Lymphocytes # (Auto) 0.9L, Monocytes # (Auto) 0.5, Eosinophils # (Auto) 0.1, Basophils # (Auto) 0.0, Immature Granulocyte # (Auto) 0.0, Prothrombin Time 19.8H, INR Comment 1.6H, Activated Partial Thromboplast Time 41H, D-Dimer < 0.27, Sodium Level 139, Potassium Level 4.0, Chloride Level 104, Carbon Dioxide Level 23, Anion Gap 12, Blood Urea Nitrogen 15, Creatinine 1.03, Estimat Glomerular Filtration Rate 55, BUN/Creatinine Ratio 15, Glucose Level 250H, Calcium Level 9.6, Corrected Calcium 9.3, Magnesium Level 2.2, Total Bilirubin 1.0, Aspartate Amino Transf (AST/SGOT) 52H, Alanine Aminotransferase (ALT/SGPT) 50, Alkaline Phosphatase 78, Myoglobin 100.4H, Troponin I < 0.028, B-Type Natriuretic Peptide 124.4H, Total Protein 7.7, Albumin 4.4 07/27/22 14:00: Urine Color YELLOW, Urine Clarity CLEAR, Urine pH 5.0, Urine Specific [place] 1.025H, Urine Protein NEGATIVE, Urine Glucose (UA) 3+H, Urine Ketones 1+H, Urine Nitrite NEGATIVE, Urine Bilirubin NEGATIVE, Urine Urobilinogen 0.2, Urine Leukocyte Esterase NEGATIVE, Urine RBC (Auto) NEGATIVE, Urine RBC NONE, Urine WBC 0-2, Urine Squamous Epithelial Cells 2-5, Urine Crystals NONE, Urine Bacteria TRACE, Urine Casts NONE, Urine Mucus NEGATIVE, Urine Culture Indicated NO 07/27/22 17:21: Glucometer 137H 07/27/22 20:28: Glucometer 268H 07/28/22 04:56: White Blood Count 4.4, Red Blood Count 5.58H, Hemoglobin 15.1, Hematocrit 47, Mean Corpuscular Volume 84, Mean Corpuscular Hemoglobin 27, Mean Corpuscular Hemoglobin Concent 32, Red Cell Distribution Width 15.6H, Platelet Count 250, Mean Platelet Volume 10.5, Immature Granulocyte % (Auto) 1, Neutrophils (%) (Auto) 57, Lymphocytes (%) (Auto) 23, Monocytes (%) (Auto) 13H, Eosinophils (%) (Auto) 6, Basophils (%) (Auto) 1, Neutrophils # (Auto) 2.5, Lymphocytes # (Auto) 1.0, Monocytes # (Auto) 0.6, Eosinophils # (Auto) 0.3, Basophils # (Auto) 0.1, Immature Granulocyte # (Auto) 0.0, Sodium Level 140, Potassium Level 3.9, Chloride Level 108H, Carbon Dioxide Level 21, Anion Gap 11, Blood Urea Nitrogen 19H, Creatinine 0.86, Estimat Glomerular Filtration Rate 68, BUN/Creatinine Ratio 22, Glucose Level 156H, Calcium Level 9.0, Magnesium Level 2.0, Thyroid Stimulating Hormone (TSH) [Pending] Home Meds Active Tramadol HCl 50 Mg Tablet 50-100 Mg PO Q4H PRN Reported Jardiance (Empagliflozin) 25 Mg Tablet 25 Mg PO DAILY Protonix (Pantoprazole Sodium) 20 Mg Tablet.dr 40 Mg PO BID Amiodarone HCl 200 Mg Tablet 100 Mg PO DAILY Ondansetron Odt (Ondansetron) 4 Mg Tab.rapdis 4 Mg PO Q4H PRN Advair Hfa 115-21 Mcg Inhaler (Fluticasone/Salmeterol) 12 Gm Hfa.aer.ad 1 Puff IH BID Ventolin Hfa (Albuterol Sulfate) 1 Puff Puff 2 Puff IH Q4H PRN Xarelto (Rivaroxaban) 20 Mg Tablet 20 Mg PO 1700 Glipizide 5 Mg Tablet 5 Mg PO BID Levothyroxine Sodium 75 Mcg Tablet 75 Mcg PO [id number] Assessment/Pt Instructions Atrial flutter Chronic Atrial Fibrillation Hypothyroidism Diabetes Mellitus Urinary frequency Dry mouth Chronic Asthma Discharge Instructions Discharge Diet: ADA Diet Activity as Tolerated: Yes Consultations dr. Aguilar Discharge Physical Examination Vital Signs Vital Signs Date Time Temp Pulse Resp B/P (MAP) Pulse Ox O2 Delivery O2 Flow Rate FiO2 07/28/22 10:00 53 11 114/69 (84) 98 Room Air 07/27/22 20:00 36.9 General Appearance: No Apparent Distress, WD/WN HEENT: PERRL/EOMI, Pharynx Normal Respiratory: Chest Non Tender, Lungs Clear, Normal Breath Sounds, No Accessory Muscle Use, No Respiratory Distress Cardiovascular: Regular Rate, Rhythm Gastrointestinal: Normal Bowel Sounds, Non Tender, Soft Extremity: Normal Capillary Refill, Non Tender, No Calf Tenderness, No Pedal Edema Skin: Normal Color, Warm/Dry Neurologic/Psychiatric: Alert, Oriented x3, No Motor/Sensory Deficits, Normal Mood/Affect Allergies: Coded Allergies: warfarin (Unverified Allergy, Severe, BLEEDING, 03/29/22) azithromycin (Verified Allergy, Unknown, 03/29/22) cephalexin (Verified Allergy, Unknown, 03/29/22) heparin (Verified Allergy, Unknown, 07/27/22) levofloxacin (Verified Allergy, Unknown, 03/29/22) meloxicam (Verified Allergy, Unknown, 03/29/22) metoprolol (Verified Allergy, Unknown, NECK SPASMS, 03/29/22) metronidazole (Verified Allergy, Unknown, 03/29/22) morphine (Verified Allergy, Unknown, 03/29/22) theophylline (Verified Allergy, Unknown, 03/29/22) prednisone (Verified Adverse Reaction, Intermediate, STOMACH BLEED, 03/29/22) norfloxacin (Verified Adverse Reaction, Unknown, GI INTOLERANCE, 03/29/22) trovafloxacin (Verified Adverse Reaction, Unknown, GI INTOLERANCE, 03/29/22) Uncoded Allergies: BRIL (Allergy, Unknown, 07/27/22) Discharge Summary Date of Admission Jul 27, 2022 at 15:15 Date of Discharge JUAN FRANCISCO ELAINE MD Jul 28, 2022 10:19
== END 2022-07-28 12:12 | disposition home or self-care (01) | DRG 310 ==
LOC: EDUNIT# 13:07 → ER 13:09 → ICU 15:15
PROVIDERS: ADMIT Family Medicine; ATTEND Family Medicine
PROC: 5A2204Z Restoration of Cardiac Rhythm, Single (ICD-10-PCS; principal; 2022-07-28)
DX: I48.92 Unspecified atrial flutter (principal); I48.20 Chronic atrial fibrillation, unspecified; I44.7 Left bundle-branch block, unspecified; I10 Essential (primary) hypertension; E11.9 Type 2 diabetes mellitus without complications; E78.00 Pure hypercholesterolemia, unspecified; K21.9 Gastro-esophageal reflux disease without esophagitis; E89.0 Postprocedural hypothyroidism; M06.9 Rheumatoid arthritis, unspecified; M19.90 Unspecified osteoarthritis, unspecified site; J44.9 Chronic obstructive pulmonary disease, unspecified; I25.10 Atherosclerotic heart disease of native coronary artery without angina pectoris; R35.0 Frequency of micturition; R68.2 Dry mouth, unspecified; F41.9 Anxiety disorder, unspecified; I65.23 Occlusion and stenosis of bilateral carotid arteries; D64.9 Anemia, unspecified; R91.1 Solitary pulmonary nodule; Z86.711 Personal history of pulmonary embolism; Z79.890 Hormone replacement therapy; Z79.84 Long term (current) use of oral hypoglycemic drugs; Z79.01 Long term (current) use of anticoagulants; Z95.5 Presence of coronary angioplasty implant and graft; Z79.899 Other long term (current) drug therapy; Z87.19 Personal history of other diseases of the digestive system
CPT/HCPCS: 36415; 71045; 80048; 80053; 81000; 82947; 83735; 83874; 83880; 84443; 84484; 85025; 85379; 85610; 85730; 87081; 93005; 93041

== ENCOUNTER 2022-11-09 15:22 | Observation (INO) | payer MEDICARE, OTHER ==
[~2022-11-09] VITALS: Ht 152 cm; Wt 67.7 kg
[~2022-11-09 15:22] MED LIST changes: +EMPA25TA PO; +PANT20TA2 PO; +PANT40SU PO
--- OUTSIDE RECORDS SUMMARY | 2022-11-09 15:37 | XMS REPORT | Clinical Summary ---
Author Author [facility] Organization [facility] Address Unknown Phone Unavailable Care Team Providers Care Center Rep Name Role Phone Clarice Elaine MD PCP Source Comments Some departments are not documenting in the electronic medical record. If you d o not see the information that you expected, contact Release of Information in [facility] Information Management department at [phone] for further assistan ce in locating additional records.[facility] Allergies Comments Active Allergy Reactions [...] Medication Sig Dispensed Refills Start Date Active albuterol sulfate (PROAIR Inhale 2 0 HFA) 90 mcg/actuation HFA puffs by aerosol inhaler mouth into the lungs every 6 hours as needed for Wheezing or Shortness of Breath. Shake well before use. Active rivaroxaban (XARELTO) 20 Take 20 mg by 0 mg tablet mouth daily with dinner. Take with food. Active sucralfate (CARAFATE) 1 Take 1 g by 0 gram tablet mouth at bedtime as needed. Take on an empty stomach. [...] mouth daily. Active Vit Place under 0 [id number] tongue daily. 1.7-20-2-1.2 mg/mL liqd Active levothyroxine (SYNTHROID) Take 75 mcg 0 75 mcg tablet by mouth daily. Active fluticasone Inhale 1 puff 6 propion-salmeterol 113-14 by mouth into 9 mcg/actuation aepb the lungs twice daily. Active dulaglutide (TRULICITY) Inject 0.75 0 0.75 mg/0.5 mL injection mg under the pen skin every 7 days. Active liraglutide (VICTOZA Inject 0.6 mg 0 2-JIAN) 0.6 mg/0.1 mL (18 under the mg/3 mL) injection pen skin daily. Active amiodarone (CORDARONE) Take 200 mg 0 200 mg tablet by mouth daily. Active Problems Problem Noted Date Atrial flutter 04/12/2018 Overview: 07/30/2021 - ECHO: ([facility]) LV cavity size is normal. There is moderate concentric hypertrophy. LV sy stolic function is normal. EF ~ 60%. There were no regional wall motio n abnormalities identified. LA is dilated, 4.4 cm. Mitral annulus is mil dly calcified and moderately fibrotic. Mild MVR. Mild AV stenosis. Peak gradient 24mmHg, mean gradient 14mmHg, valve area 1.9 cm2. P ASP ~ 35mmHg. 07/21/2021 - DCCV: ([facility]) Successful Cardioversion and terminating AFL. PAF (paroxysmal atrial fibrillation) 12/07/2017 Overview: CHA2Ds@-VASc score = 4 11/10/15 Dr Alves -implantation of inter nal loop recorder - [employer] 11/26/17 Echo: EF 55 - 65%, focal bas al hypertrophy, systolic function is normal. no regional wall motion abn. l eft atrial mild to moderate dilation. measuring 4.45 cm, right atri um is dilated. mitral valve moderately calcified annul us mild calcified leaflets, mild regurgitation, aortic valve with thickening, consisten t with sclerosis, mod regurgitation of tricuspid valve. pulmonary hypertension with est pulmona ry artery pressure of 50 - 55 mmHG 11/28/17 Dr Aguilar - stress test - develo ped AF with RVR - abnormal stress test with anteroapical and anterolatera l mild ischemia. (cath results below) Coronary artery disease involving nez perce coronary art nate of nez perce heart 12/07/2017 Overview: hx of PSI/stent 3.5 x 15 mm resolute du rg-eluting stent to the LAD expanded to 3.86 mm with excellent results. 10/07 4 cath revealed patent stent to LAD otherwise moderate disease in distal LAD. very small artery. 11/28/17 Stress test - PAF with RVR to hospital, treated with lopressor, dig then verapamil IV. home with po ca rdizem 11/29/17 cardiac cath: patent stent in proximal LAD with small vessel disease distally, mild coronary artery disease non obstructive, normal left ventricular end-diastolic pressure 10/26/2021 - MPI: ([facility]) Pt tolerated Lexiscan well. Breast attenu ation with reversible ischemia, involving the mid to apical anterior wa ll and anterolateral wall. Normal LV size, EF = 60%. Essential hypertension 12/07/2017 Hyperlipidemia 12/07/2017 COPD (chronic obstructive pulmonary disease) 018 Diabetes mellitus type 2, noninsulin dependent 12/07 Hypothyroidism 12/07/2017 Bilateral carotid artery stenosis 12/07/2017 GI bleed 12/07/2017 Overview: history of intolerance to aggressive or al anticoagulation including aspirin and plavix and coumadin. currently roger ntained on xarelto Surgical History Surgery Date Site/Laterality Comments THYROIDECTOMY CARPAL TUNNEL RELEASE HX HEART CATHETERIZATION stent CHOLECYSTECTOMY KNEE REPLACEMENT Left FOOT SURGERY Right CATARACT REMOVAL Bilateral HX HYSTERECTOMY TRANSESOPHAGEAL 04/25/2018 N/A TRANSESOPHAGEA L ECHOCARDIOGRAM DURING INTERVENTION ECHOCARDIOGRAM performed by Mary Sultana at [facility] Medical History Medical History Date Comments A-fib (HCC) Coronary artery disease Arthritis Asthma COPD (chronic obstructive pulmonary disease) (HCC) DM (diabetes mellitus) (HCC) Deep vein thrombosis (DVT) (HCC) 1984 Pulmonary embolism (HCC) 1984 GERD (gastroesophageal reflux disease) GI bleed Anemia Disorder of thyroid gland Hiatal hernia Family History Medical History Relation Name Comments Heart Attack Brother 1 Alcohol abuse Brother 2 Diabetes Brother 2 Melanoma Brother 2 in leg Coronary Artery Disease Father Stroke Maternal Grandfather Unknown to Patient Maternal Grandmother Coronary Artery Disease Mother Emphysema Mother Stroke Mother Asthma Paternal Grandfather Unknown to Patient Paternal Grandmother Arthritis Sister 1 Atrial Fibrillation Sister 1 Heart defect Sister 2 hole in heart Heart problem Sister 2 Pacemaker Sister 2 Relation Name Status Comments Brother 1 (Age 65) Brother 2 (Age 68) Father former heavy smoker (Age 79) Maternal Grandfather Maternal Grandmother Mother (Age 80) Paternal Grandfather Paternal Grandmother Sister 1 (Age 80) Sister 2 Alive Social History Date Tobacco Use Types Packs/Day Years Used Smoking Tobacco: Never Smokeless Tobacco: Never Comments Alcohol Use Standard Drinks/Week No 0 (1 standard drink = 0.6 o z pure alcohol) Sex Assigned at Date Recorded Not on file Obstetrics History Last Filed Vital Signs Reading Time Taken Comments Vital Sign 182/70 11/28/2021 11:19 AM CDT Blood Pressure 70 11/28/2021 11:19 AM CDT Pulse 36.2 C (97.1 F) 11/28/2021 11:19 AM CDT Temperature 16 11/28/2021 11:19 AM CDT Respiratory Rate 97% 11/28/2021 11:19 AM CDT Oxygen Saturation - - Inhaled Oxygen Concentration 73.5 kg (162 lb) 11/28/2021 11:19 AM CDT Weight 154.9 cm (5' 1") 11/28/2021 11:19 AM CDT Height 30.61 11/28/2021 11:19 AM CDT Body Mass Index Plan of Treatment Health Maintenance Due Date Last Done Comments DIABETES HBA1C 1941 DIABETES MICROALBUMIN TO 1941 CREATININE RATIO MEDICARE ANNUAL WELLNESS 1941 VISIT DIABETES DILATED EYE EXAM 1959 DIABETES FOOT EXAM 1959 DTAP/TDAP VACCINES (1 - 1959 Tdap) PHYSICAL (COMPREHENSIVE) 1959 EXAM SHINGLES RECOMBINANT 1991 VACCINE (1 of 2) OSTEOPOROSIS 2006 SCREENING/MONITORING COVID-19 VACCINE (4 - 07/01/2021 05/06/2021, Booster for Moderna 08/27/2020, series) 07/30/2020 ADVANCED CARE PLANNING 07/09/2022 DISCUSSION AND DOCUMENTATION DEPRESSION SCREENING 07/09/2022 DIABETES EGFR SCREEN 07/20/2022 07/20/2021, 05/09/2018, 04/26/2018, Additional history exists INFLUENZA VACCINE (Season 04/08/2023 Ended) PNEUMOCOCCAL VACCINE 65+ Completed 05/11/2016, YRS 03/26/2012, 04/14/1999 Medical Devices Device Identifier Shelf Expiration Date Model / Serial / L ot Implanted Type Area Manufactur er Loop Recorder Loop Recorder Linq Other Results Not on filefrom Last 3 Months Insurance Type Payer Benefit Subscriber ID Effective Phone Address Plan / Dates Group Medicare MEDICARE [employer]ILRO[employer] MEDICARE [id number] 2006-P [phone] [id number] [facility] [id number] Indemnity [facility] [id number] 2017-P 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 Care Teams Start Date End Date Center Rep Relationship Specialty 12/07/17 Clarice Elaine MD PCP - General Family [address] [place] [address]
--- OUTSIDE RECORDS SUMMARY | 2022-11-09 15:38 | XMS REPORT | CCD ---
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 Unknown Has nev er used illegal drugs 05/05/2011 Allergies, Adverse Reactions, Alerts Substance Reaction Codes Entered Date Inactivated Date Status noroxin RxNorm: 184271 05/05/2011 No Inactive Date Acti ve Levaquin RxNorm: 990353 10/11/2011 No Inactive Date Acti ve METRONIDAZOLE Unknown 05/05/2011 No Inactive Date Activ e trovan RxNorm: 558245 05/05/2011 No Inactive Date Acti ve MORPHINE SULFATE RxNorm: 38146 10/11/2011 No Inactive Date Active * NO KNOWN FOOD ALLERGIES Unknown 05/05/2011 No Inactiv e Date Active PREDNISONE RxNorm: 8640 05/05/2011 No Inactive Date Active cephalexin RxNorm: 693823 05/05/2011 No Inactive Date Acti ve azithromycin Unknown 10/11/2011 No Inactive Date Active theophylline RxNorm: 27803 05/05/2011 No Inactive Date Act pilar Problems Condition Codes Effective Dates Condition Status Atrophy of thyroid (acquired) ICD-10: E03.4 ICD-9: 244.8 05/27/2018 Active Essential (primary) hypertension ICD-10: I10 ICD-9: 401.9 11/10/2013 Active Type 2 diabetes mellitus with hyperglycemia ICD-10: E1 1.65 ICD-9: 250.02 11/10/2013 Active Cough in adult ICD-10: R05.9 ICD-9: 786.2 06/05/2022 Active Esophageal pain ICD-10: K22.89 ICD-9: 530.89 06/05/2022 Active Gastro-esophageal reflux disease with esophagitis ICD- 10: K21.00 ICD-9: 530.81 06/05/2022 Active Cyst of buttocks ICD-10: L72.9 ICD-9: 706.2 02/23/2022 Active Pancreatic cyst ICD-10: K86.2 ICD-9: 577.2 02/23/2022 Active Rash and nonspecific skin eruption ICD-10: R21 ICD-9: 782.1 02/23/2022 Active Cellulitis of left buttock ICD-10: L03.317 ICD-9: 682.5 02/20/2022 Active Paroxysmal atrial fibrillation ICD-10: I48.0 ICD-9: 427.31 07/15/2012 Active Type 2 diabetes mellitus with hyperglycemia ICD-10: IM O0001 ICD-9: 250.02 02/06/2022 Active Essential (primary) hypertension ICD-10: I10 ICD-9: 401.1 11/13/2017 Active Mild intermittent asthma in adult without complication ICD-10: J45.21 ICD-9: 493.12 10/24/2015 Active Type 2 diabetes mellitus without complications ICD-10: E11.9 ICD-9: 250.00 12/11/2013 Active Flu vaccine need ICD-10: Z23 ICD-9: V04.81 04/30/2017 Active Acute bronchitis due to other specified organisms ICD- 10: J20.8 ICD-9: 466.0 05/14/2017 Active Cough ICD-10: R05 ICD-9: 786.2 05/14/2017 Active Dysuria ICD-10: R30.0 ICD-9: 788.1 12/31/2017 Active Other specified anemias ICD-10: D64.89 ICD-9: V58.69 12/04/2017 Active Anemia, unspecified ICD-10: D64.9 ICD-9: 285.9 11/22/2017 Active Benign paroxysmal vertigo, bilateral ICD-10: H81.13 ICD-9: 386.11 11/13/2017 Active Other allergic rhinitis ICD-10: J30.89 ICD-9: 477.8 11/13/2017 Active Other fatigue ICD-10: R53.83 ICD-9: 780.79 11/13/2017 Active Other specified anemias ICD-10: D64.89 ICD-9: 285.8 09/20/2017 Active Gastro-esophageal reflux disease without esophagitis I CD-10: K21.9 ICD-9: 530.81 10/12/2016 Active Impacted cerumen, right ear ICD-10: H61.21 ICD-9: 380.4 05/29/2017 Active Other chest pain ICD-10: R07.89 ICD-9: 786.52 05/14/2017 Active 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 ICD-9: 293.84 10/18/2015 Active Localized edema ICD-10: R60.0 ICD-9: 782.3 05/29/2016 Active Pain in left ankle and joints of left foot ICD-10: M25 .572 ICD-9: 719.47 05/29/2016 Active Moderate persistent asthma, uncomplicated ICD-10: J45. 40 ICD-9: 493.90 02/28/2016 Active Acute maxillary sinusitis, unspecified ICD-10: J01.00 ICD-9: 461.0 02/02/2016 Active Hypothyroidism, unspecified ICD-10: E03.9 ICD-9: 244.9 12/11/2013 Active Acute sinusitis, unspecified ICD-10: J01.90 ICD-9: 461.9 11/10/2015 Active Chronic fatigue, unspecified ICD-10: R53.82 ICD-9: 780.79 07/15/2012 Active Dyspnea, unspecified ICD-10: R06.00 ICD-9: 786.09 10/18/2015 Active Other chest pain ICD-10: R07.89 ICD-9: 786.59 10/18/2015 Active ACUTE BRONCHITIS ICD-9: 466.0 08/17/2014 Active Acute asthma exacerbation ICD-9: 493.92 04/13/2014 Active DIABETES TYPE II ICD-9: 250.00 12/11/2013 Active HYPOTHYROIDISM ICD-9: 244.9 12/11/2013 Active DM W/O COMPLICATION TYPE II, UNCONTROLLED ICD-9: 250.02 2013 Active ESSENTIAL HYPERTENSION ICD-9: 401.9 11/10/2013 Active VACCIN FOR INFLUENZA ICD-9: V04.81 05/12/2013 Active Lump of breast, right ICD-9: 611.72 09/11/2012 Active Lump on neck ICD-9: 784.2 09/11/2012 Active Atrial fibrillation ICD-9: 427.31 07/15/2012 Active Encounter for monitoring digoxin therapy ICD-9: V58.83 013 Active Fatigue ICD-9: 780.79 07/15/2012 Active Hypothryroidism Unknown 03/26/2012 Active Immunization, pneumococcus and influenza ICD-9: V06.6 012 Active Hyperlipidemia Unknown 01/08/2012 Active HYPERLIPIDEMIA ICD-9: 272.4 01/08/2012 Active Hypertension Unknown 11/27/2011 Active Chronic obstructive pulmonary disease Unknown 2 Inactive Diabetes Unknown 05/02/2011 Inactive Diverticular disease Unknown 11/06/2011 Inactive Osteoporosis Unknown 11/06/2011 Inactive Abdominal pain ICD-9: 789.00 10/04/2011 Inactive ACUTE SINUSITIS ICD-9: 461.9 11/06/2011 Inactive ANEMIA ICD-9: 285.9 10/25/2011 Inactive Gastritis ICD-9: 535.50 10/25/2011 Inactive Muscle spasm ICD-9: 728.85 07/31/2011 Inactive ANEMIA NEC ICD-9: 285.8 10/16/2011 Active Anemia associated with acute blood loss ICD-9: 285.1 10/11/19 12 Active Gastritis, acute with hemorrhage ICD-9: 535.01 10/11/2011 Active ENCNTR LONG-RX USE NEC ICD-9: V58.69 10/04/2011 Active Hematochezia ICD-9: 578.1 10/04/2011 Active Coronary artery disease ICD-9: 414.00 09/25/2011 Active Arthralgia ICD-9: 719.40 07/31/2011 Active MYALGIA AND MYOSITIS ICD-9: 729.1 07/31/2011 Active Cervicalgia ICD-9: 723.1 05/22/2011 Active Medications Medication Codes Instructions Start Date Stop Date Status Fill Instructions lactulose 10 gram/15 mL oral solution RxNorm: 521100 15 Milliliter(s) Oral two times a day 10/31/2022 11/29/2022 Active lactulose 10 gram/15 mL oral solution RxNorm: 858682 15 Milliliter(s) Oral two times a day 10/31/2022 10/31/2022 Inactive Pepcid 20 mg tablet RxNorm: 777884 Take 1 Tablet(s) Oral two ti mes a day 10/25/2022 11/23/2022 Active Pepcid 20 mg tablet RxNorm: 153059 1 Tablet(s) Oral two times a day 10/25/2022 10/25/2022 Inactive Mucinex 600 mg tablet, extended release RxNorm: 427624 Take 1 Tablet(s) Oral two times a day 10/23/2022 11/01/2022 Active doxycycline hyclate 100 mg tablet RxNorm: 2344407 Take 1 Tablet(s) Oral three times a day 10/23/2022 10/29/2022 Inactive amiodarone 100 mg tablet RxNorm: 231992 Take 1 Tablet(s) Oral e very other day 10/17/2022 10/11/2023 Active Jardiance 10 mg tablet RxNorm: 0490831 Take 1 Tablet(s) Oral daniela ry day 10/17/2022 11/15/2022 Active Ozempic 0.25 mg or 0.5 mg (2 mg/1.5 mL) subcutaneous p en injector RxNorm: 0835006 Inject 0.5 Milligram(s) Subcutaneous once a week 10/17/2022 02/13/2023 Active Accu-Chek Fastclix Lancet Drum RxNorm: USE 1 ROGE CET TO CHECK GLUCOSE ONCE DAILY 08/23/2022 01/14/2024 Active Jardiance 25 mg tablet RxNorm: 8937189 Take 1 Tablet(s) Oral daniela ry day 06/20/2022 10/16/2022 Inactive pantoprazole 40 mg tablet,delayed release RxNorm: 426108 Take 1 Tablet(s) Oral two times a day 06/05/2022 09/02/2022 Inactive glipizide 5 mg tablet RxNorm: 066751 Take 1 Tablet(s) Oral two times a day 03/03/2022 02/25/2023 Active triamcinolone acetonide 0.5 % topical cream RxNorm: 0412112 Apply 1 Topical three times a day 02/23/2022 03/04/2022 Inactive Bactrim DS 800 mg-160 mg tablet RxNorm: 272750 Take 1 T ablet(s) Oral two times a day 02/20/2022 02/26/2022 Inactive amiodarone 200 mg tablet RxNorm: 312983 Take 1/2 Tablet(s) Oral every day 02/12/2022 09/09/2022 Inactive amiodarone 200 mg tablet RxNorm: 363914 1/2 Tablet(s) Oral every da y 02/09/2022 02/09/2022 Inactive amiodarone 200 mg tablet RxNorm: 889093 Take 1/2 Tablet(s) Oral every day 02/09/2022 02/09/2022 Inactive amiodarone 100 mg tablet RxNorm: 260908 Take 1 Tablet(s) Oral e 02/07/2022 02/08/2022 Inactive this replaces the 20 0mg dose Victoza 2-Abdirizak 0.6 mg/0.1 mL (18 mg/3 mL) subcutaneous pen injector RxNorm: 138219 Inject 1.8 Milligram(s) Subcutaneous every day 02/07/2022 0 10/16/2022 Inactive 1 month supply with needles ondansetron 4 mg disintegrating tablet RxNorm: 362483 1 Tablet(s) Oral as needed 02/06/2022 No Stop Date Active Synthroid 75 mcg tablet RxNorm: 618579 Take 1 as direct ed take one tab m/w/f/sat/sun, no tabs tues/thurs 02/06/2022 06/30/2022 Inactive amiodarone 200 mg tablet RxNorm: 737306 Take 1 Tablet(s) Oral t wo times a day 02/06/2022 02/06/2022 Inactive ondansetron 4 mg disintegrating tablet RxNorm: 262150 T gisselle 1 Tablet(s) Oral four times a day as needed nausea 01/04/2022 02/02/2022 Inactive Accu-Chek Tracy Plus test strips RxNorm: USE 1 S TRIP TO CHECK GLUCOSE ONCE DAILY 12/08/2021 03/21/2025 Active Synthroid 75 mcg tablet RxNorm: 383510 TAKE 1 TABLET BY MOUTH O NCE DAILY 10/10/2021 02/05/2022 Inactive amiodarone 200 mg tablet RxNorm: 091724 Take 1 Tablet(s) Oral t wo times a day 09/13/2021 02/06/2022 Inactive diltiazem ER (XR/XT) 120 mg capsule,extended release 2 4 hr, controlled RxNorm: 575031 Take 1 Capsule(s) Oral every day 09/13/2021 01/03/2022 Inactive Accu-Chek Fastclix Lancet Drum RxNorm: USE 1 ROGE CET TO CHECK GLUCOSE ONCE DAILY 06/17/2021 06/17/2021 Inactive Accu-Chek Fastclix Lancet Drum RxNorm: USE 1 ROGE CET TO CHECK GLUCOSE ONCE DAILY 06/13/2021 06/13/2021 Inactive glipizide 5 mg tablet RxNorm: 200667 1 Tablet(s) Oral two times a day 04/05/2021 04/05/2021 Inactive Victoza 2-Abdirizak 0.6 mg/0.1 mL (18 mg/3 mL) subcutaneous pen injector RxNorm: 844131 Inject 1.2 Milligram(s) Subcutaneous every day 04/05/2021 0 02/06/2022 Inactive 1 month supply with needles Synthroid 75 mcg tablet RxNorm: 393374 TAKE 1 TABLET BY MOUTH O NCE DAILY 01/11/2021 04/10/2021 Inactive Victoza 2-Abdirizak 0.6 mg/0.1 mL (18 mg/3 mL) subcutaneous pen injector RxNorm: 110017 Milliliter(s) Subcutaneous as directed 0 .6mg daily x 1 week then 1.2mg daily 12/08/2020 12/07/2020 Inactive Trulicity is too expensive- wants to cano this victoza Victoza 2-Abdirizak 0.6 mg/0.1 mL (18 mg/3 mL) subcutaneous pen injector RxNorm: 305452 Milliliter(s) Subcutaneous as directed 0 .6mg daily x 1 week then 1.2mg daily 12/08/2020 04/04/2021 Inactive Trulicity is too expensive- wants to cano this victoza- please call her- qty sufficient for 30 days Trulicity 0.75 mg/0.5 mL subcutaneous pen injector RxNorm: 1 639539 INJECT 1 SYRINGE SUBCUTANEOUSLY ONCE A WEEK 10/13/2020 04/04/2021 Inactive Advair HFA 115 mcg-21 mcg/actuation aerosol inhaler RxNorm: 1736910 1 Puff(s) Inhalation two times a day 08/05/2020 No Stop Date Active Accu-Chek Tracy Plus test strips RxNorm: Miscell aneous USE 1 STRIP TO CHECK GLUCOSE ONCE DAILY 07/26/2020 07/26/2020 Inactive Accu-Chek Tracy Plus test strips RxNorm: Miscell aneous USE 1 STRIP TO CHECK GLUCOSE ONCE DAILY 07/26/2020 07/25/2020 Inactive Trulicity 0.75 mg/0.5 mL subcutaneous pen injector RxNorm: 1 137926 INJECT 1 SYRINGE SUBCUTANEOUSLY ONCE A WEEK 06/22/2020 10/12/2020 Inactive Accu-Chek Multiclix Lancet RxNorm: USE 1 LANCET TO CHECK GLUCOSE ONCE DAILY 04/26/2020 04/26/2020 Inactive glipizide 5 mg tablet RxNorm: 135674 1 Tablet(s) Oral two times a day 04/07/2020 04/01/2021 Inactive Synthroid 75 mcg tablet RxNorm: 568527 TAKE 1 TABLET BY MOUTH O NCE DAILY 04/07/2020 01/01/2021 Inactive Trulicity 0.75 mg/0.5 mL subcutaneous pen injector RxNorm: 1 744263 INJECT 1 SYRINGE SUBCUTANEOUSLY ONCE A WEEK 12/31/2019 06/15/2020 Inactive fluticasone 113 mcg-salmeterol 14 mcg/actuation breath activated powdr RxNorm: 1779836 INHALE 1 PUFF TWICE DAILY 12/31/2019 06/27/2020 Inactive Trulicity 0.75 mg/0.5 mL subcutaneous pen injector RxNorm: 1 025758 0.5 Milliliter(s) Subcutaneous once a week 09/09/2019 12/30/2019 Inactive Synthroid 75 mcg tablet RxNorm: 947938 TAKE 1 TABLET BY MOUTH O NCE DAILY 08/04/2019 04/06/2020 Inactive Symbicort 160 mcg-4.5 mcg/actuation HFA aerosol inhaler RxNo rm: 0844025 2 Inhalation two times a day 05/13/2019 08/04/2020 Inactive glipizide 5 mg tablet RxNorm: 968518 1 Tablet(s) Oral two times a day 05/08/2019 04/06/2020 Inactive doxycycline hyclate 100 mg tablet RxNorm: 8976507 1 Tablet(s) PO BI D 01/21/2019 02/03/2019 Inactive fluticasone 113 mcg-salmeterol 14 mcg/actuation breath activated powdr RxNorm: 0120881 1 inhale INH BID 01/21/2019 08/18/2019 Inactive Synthroid 75 mcg tablet RxNorm: 884750 TAKE 1 TABLET BY MOUTH O NCE DAILY 10/28/2018 08/03/2019 Inactive Dulera 100 mcg-5 mcg/actuation HFA aerosol inhaler RxNorm: 1 301468 1 Puff(s) INH BID 09/23/2018 01/20/2019 Inactive Kenalog 40 mg/mL suspension for injection RxNorm: 1115247 Millil iter(s) Inj 09/23/2018 09/23/2018 Inactive albuterol sulfate 2.5 mg/3 mL (0.083 %) solution for n ebulization RxNorm: 412599 USE 1 VIAL IN NEBULIZER 4 TIMES DAILY NEEDED FOR ASTHMA 0 08/26/2018 No Stop Date Active Symbicort 160 mcg-4.5 mcg/actuation HFA aerosol inhaler RxNorm: 5876841 1 INH 06/07/2018 06/06/2018 Inactive Symbicort 160 mcg-4.5 mcg/actuation HFA aerosol inhaler RxNo rm: 6218323 1 INH BID 06/07/2018 07/06/2018 Inactive glipizide 5 mg tablet RxNorm: 697037 1/2 Tablet(s) PO B ID TAKE ONE-HALF TABLET BY MOUTH TWICE DAILY 05/27/2018 05/07/2019 Inactive Synthroid 75 mcg tablet RxNorm: 767906 1 Tablet(s) PO daily 018 05/14/2018 Inactive Synthroid 75 mcg tablet RxNorm: 488219 1 Tablet(s) PO daily 018 10/27/2018 Inactive Synthroid 88 mcg tablet RxNorm: 296451 TAKE 1 TABLET BY MOUTH O NCE DAILY 04/08/2018 05/14/2018 Inactive amiodarone 200 mg tablet RxNorm: 238358 1/2 Tablet(s) PO BID 201705/26/2018 Inactive Bactrim DS 800 mg-160 mg tablet RxNorm: 465979 1 Tablet(s) PO BID 0 01/03/2018 01/02/2018 Inactive take probiotic bid x 7 days Bactrim DS 800 mg-160 mg tablet RxNorm: 710408 1 Tablet(s) PO BID 0 01/03/2018 01/09/2018 Inactive take probiotic bid x 7 days nitrofurantoin 100 mg capsule RxNorm: 144618 1 Capsule(s) PO BID 01/06/2018 Inactive nitrofurantoin 100 mg capsule RxNorm: 144906 1 Capsule(s) PO BID 12/30/2017 Inactive nitrofurantoin 100 mg capsule RxNorm: 217596 1 Capsule(s) PO BID 12/30/2017 Inactive glipizide 5 mg tablet RxNorm: 724298 TAKE ONE-HALF TABLET BY [facility] TWICE DAILY 11/23/2017 05/26/2018 Inactive meclizine 25 mg tablet RxNorm: 987802 1 Tablet(s) PO Q6 PRN 018 No Stop Date Active Kenalog 40 mg/mL suspension for injection RxNorm: 3424038 1.5 Mi lliliter(s) Inj 10/30/2017 10/30/2017 Inactive Augmentin 875 mg-125 mg tablet RxNorm: 093223 1 Tablet(s) PO BID 11/05/2017 Inactive Synthroid 88 mcg tablet RxNorm: 087426 TAKE ONE TABLET BY MOUTH ONCE DAILY 10/15/2017 04/07/2018 Inactive metformin 500 mg tablet RxNorm: 530593 TAKE ONE TABLET BY MOUTH WITH BREAKFAST AND ONE TABLET WITH LUNCH AND TWO TABLETS WITH SUPPER 10/15/20172017 Inactive albuterol sulfate 2.5 mg/3 mL (0.083 %) solution for n ebulization RxNorm: 901786 USE ONE VIAL IN NEBULIZER 4 TIMES DAILY NEEDED FOR ASTHMA 08/16/2017 08/25/2018 Inactive Plavix 75 mg tablet RxNorm: 462898 TAKE ONE TABLET BY MOUTH ONC E DAILY 06/25/2017 06/24/2017 Inactive Plavix 75 mg tablet RxNorm: 770534 1 Tablet(s) PO daily TAKE ONE TABLET BY MOUTH ONCE DAILY 06/25/2017 09/19/2017 Inactive acyclovir 800 mg tablet RxNorm: 089712 1 Tablet(s) PO QID 05/15/2017 05/14/2017 Inactive acyclovir 800 mg tablet RxNorm: 447691 1 Tablet(s) PO QID 05/15/2017 05/21/2017 Inactive tramadol 50 mg tablet RxNorm: 852114 1 Tablet(s) PO TID 05/15/2017 Inactive ketorolac 60 mg/2 mL intramuscular solution RxNorm: 643634 2 Mi lliliter(s) IM 05/14/2017 05/14/2017 Inactive Augmentin 875 mg-125 mg tablet RxNorm: 342670 1 Tablet(s) PO BID 05/23/2017 Inactive Synthroid 88 mcg tablet RxNorm: 198823 TAKE ONE TABLET BY MOUTH ONCE DAILY; NEED THYROID LABS DONE 04/16/2017 10/12/2017 Inactive Kenalog 40 mg/mL suspension for injection RxNorm: 7155512 Millil iter(s) Inj 03/06/2017 03/06/2017 Inactive metformin 500 mg tablet RxNorm: 251700 1 Tablet(s) UD 1 tab at breakfast, 1tab at lunch, 2 tab at supper 03/06/2017 09/01/2017 Inactive glipizide 5 mg tablet RxNorm: 179940 TAKE ONE-HALF TABLET BY [facility] TWICE DAILY 02/23/2017 11/19/2017 Inactive Synthroid 88 mcg tablet RxNorm: 264341 Tablet(s) PO LESLEE E ONE TABLET BY MOUTH DAILY 01/17/2017 04/15/2017 Inactive Needs thyroid la bs done Plavix 75 mg tablet RxNorm: 540523 TAKE ONE TABLET BY MOUTH ONC E DAILY 12/25/2016 06/22/2017 Inactive Kenalog 40 mg/mL suspension for injection RxNorm: 9442226 1.5 Mi lliliter(s) Inj 09/04/2016 09/04/2016 Inactive Janumet XR 100 mg-1,000 mg tablet,extended release RxNorm: 1 896957 1 Tablet(s) PO daily 09/04/2016 03/02/2017 Inactive glipizide 5 mg tablet RxNorm: 518579 TAKE ONE-HALF TABLET BY [facility] TWICE DAILY 08/24/2016 02/19/2017 Inactive Janumet XR 50 mg-1,000 mg tablet,extended release RxNorm: 12 87791 TAKE ONE TABLET BY MOUTH ONCE DAILY 05/29/2016 09/03/2016 Inactive metoprolol tartrate 25 mg tablet RxNorm: 331336 1/4 Tablet(s) PO BI D 05/01/2016 05/29/2016 Inactive glipizide 5 mg tablet RxNorm: 135336 TAKE ONE-HALF TABLET BY [facility] TWICE DAILY 02/21/2016 08/18/2016 Inactive ProAir HFA 90 mcg/actuation aerosol inhaler RxNorm: 525692 2 Puff(s) INH PRN as needed ASTHMA 02/03/2016 03/03/2016 Inactive albuterol sulfate 2.5 mg/3 mL (0.083 %) solution for n ebulization RxNorm: 690003 1 Milliliter(s) INH QID as needed ASTHMA 02/03/2016 06/01/2016 Inactive Accu-Chek Active Test strips RxNorm: 1 test Miscellaneous homer y 02/03/2016 07/25/2020 Inactive DX250.00 Janumet XR 50 mg-1,000 mg tablet,extended release RxNorm: 12 93848 1 Tablet(s) PO daily 02/03/2016 05/28/2016 Inactive Augmentin 875 mg-125 mg tablet RxNorm: 953857 1 Tablet(s) PO BID 02/12/2016 Inactive sucralfate 1 gram tablet RxNorm: 939420 1 Tablet(s) PO QID - take 30 minutes before meals and before supper 12/21/2015 02/04/2019 Inactive metformin ER 500 mg tablet,extended release 24 hr RxNorm: 86 0975 1 Tablet(s) PO BID 12/21/2015 02/02/2016 Inactive digoxin 250 mcg tablet RxNorm: 546721 1 Tablet(s) PO daily 12/21/19 16 01/20/2018 Inactive Synthroid 88 mcg tablet RxNorm: 108508 Tablet(s) PO LESLEE E ONE TABLET BY MOUTH DAILY 12/20/2015 01/16/2017 Inactive Plavix 75 mg tablet RxNorm: 202248 1 Tablet(s) PO daily 12/20/2015 Inactive Kenalog 40 mg/mL suspension for injection RxNorm: 2745219 1 Mill iliter(s) Inj 11/11/2015 11/11/2015 Inactive Kenalog 40 mg/mL suspension for injection RxNorm: 3494454 1 Mill iliter(s) Inj 10/25/2015 10/25/2015 Inactive metformin 500 mg tablet RxNorm: 659189 2 Tablet(s) PO BID 07/16/2015 12/20/2015 Inactive metformin 500 mg tablet RxNorm: 520050 TAKE TWO TABLETS BY MOUT H TWICE DAILY 07/16/2015 12/20/2015 Inactive albuterol sulfate 2.5 mg/3 mL (0.083 %) solution for n ebulization RxNorm: 667591 1 Milliliter(s) INH QID as needed ASTHMA 07/14/2015 11/10/2015 Inactive glipizide 5 mg tablet RxNorm: 314072 1/2 Tablet(s) PO BID 02/03/2015 01/28/2016 Inactive Symbicort 160 mcg-4.5 mcg/actuation HFA aerosol inhaler RxNorm: 4594946 1 INH 01/06/2015 06/06/2018 Inactive metformin 500 mg tablet RxNorm: 869923 2 Tablet(s) PO BID 12/22/2014 06/19/2015 Inactive Plavix 75 mg tablet RxNorm: 090772 1 Tablet(s) PO daily 12/02/2014 Inactive note directions of one per day Synthroid 88 mcg tablet RxNorm: 200393 1 Tablet(s) PO d aily TAKE ONE TABLET BY MOUTH DAILY 12/02/2014 04/07/2018 Inactive Accu-Chek Active Test strips RxNorm: 1 test Miscellaneous homer y 08/17/2014 02/02/2016 Inactive DX250.00 Kenalog 40 mg/mL suspension for injection RxNorm: 7440332 Millil iter(s) Inj 08/17/2014 08/17/2014 Inactive doxycycline hyclate 100 mg tablet RxNorm: 411813 1 Tablet(s) PO BID 08/17/2014 08/26/2014 Inactive albuterol sulfate 2.5 mg/3 mL (0.083 %) solution for n ebulization RxNorm: 946815 1 Milliliter(s) INH QID as needed ASTHMA 08/17/2014 08/16/2014 Inactive albuterol sulfate 2.5 mg/3 mL (0.083 %) solution for n ebulization RxNorm: 748955 1 Milliliter(s) INH QID as needed ASTHMA 08/17/2014 12/14/2014 Inactive doxycycline hyclate 100 mg tablet RxNorm: 144421 1 Tablet(s) PO BID 08/17/2014 08/16/2014 Inactive Accu-Chek Multiclix Lancet RxNorm: 1 Miscellaneo us daily TEST BLOOD SUGAR EVERY DAY 08/17/2014 09/10/2015 Inactive DX 250.00 metformin 500 mg tablet RxNorm: 597914 TAKE TWO TABLETS BY MOUT H TWICE DAILY 06/23/2014 09/20/2014 Inactive metformin 500 mg tablet RxNorm: 469430 2 Tablet(s) PO BID 06/22/2014 12/18/2014 Inactive Bactrim DS 800 mg-160 mg tablet RxNorm: 072627 1 Tablet(s) PO BID 1 07/11/2013 05/17/2014 Inactive Bactrim DS 800 mg-160 mg tablet RxNorm: 235276 1 Tablet(s) PO BID 1 07/11/2013 05/10/2014 Inactive Kenalog 40 mg/mL suspension for injection RxNorm: 7332197 Millil iter(s) Inj 04/13/2014 04/13/2014 Inactive Accu-Chek Active Test strips RxNorm: 1 TEST MISCELLANEOUS BID 04/06/2014 10/22/2014 Inactive glipizide 5 mg tablet RxNorm: 549933 1/2 Tablet(s) PO BID 03/03/2014 02/02/2015 Inactive Synthroid 88 mcg tablet RxNorm: 403070 1 Tablet(s) PO d aily TAKE ONE TABLET BY MOUTH DAILY 12/11/2013 12/01/2014 Inactive Plavix 75 mg tablet RxNorm: 031588 1 Tablet(s) PO daily 12/11/2013 Inactive note directions of one per day glipizide 5 mg tablet RxNorm: 127968 1/2 Tablet(s) PO BID 11/10/2013 03/02/2014 Inactive Lipitor 10 mg tablet RxNorm: 124037 1 Tablet(s) PO daily 11/10/2013 0 12/21/2014 Inactive Accu-Chek Active Test strips RxNorm: strip misce llaneous TEST BLOOD SUGAR EVERY DAY 11/03/2013 07/25/2020 Inactive Accu-Chek Multiclix Lancet RxNorm: misc miscella neous TEST BLOOD SUGAR EVERY DAY 08/07/2013 08/16/2014 Inactive digoxin 125 mcg tablet RxNorm: 771594 1 Tablet(s) PO daily 08/05/19 14 10/28/2014 Inactive Accu-Chek Active Test strips RxNorm: strip misce llaneous TEST BLOOD SUGAR EVERY DAY 08/05/2013 07/25/2020 Inactive metformin 500 mg tablet RxNorm: 907181 2 Tablet(s) PO BID 06/12/2013 06/21/2014 Inactive metformin 500 mg tablet RxNorm: 863646 2 Tablet(s) PO BID 05/12/2013 06/11/2013 Inactive metformin 500 mg tablet RxNorm: 878707 Tablet(s) PO LESLEE E ONE & ONE-HALF TABLETS BY MOUTH TWICE DAILY 04/10/2013 05/11/2013 Inactive Synthroid 88 mcg tablet RxNorm: 526414 Tablet(s) PO LESLEE E ONE TABLET BY MOUTH DAILY 01/07/2013 12/19/2015 Inactive Synthroid 88 mcg tablet RxNorm: 377066 1 Tablet(s) PO d aily TAKE ONE TABLET BY MOUTH DAILY 01/06/2013 12/10/2013 Inactive Plavix 75 mg tablet RxNorm: 961198 1 Tablet(s) PO daily 12/09/2012 Inactive note directions of one per day Lipitor 80 mg tablet RxNorm: 146373 Tablet(s) PO TAKE 1 TABLET BY MOUTH EVERY DAY 10/28/2012 11/09/2013 Inactive Synthroid 88 mcg tablet RxNorm: 790447 Tablet(s) PO LESLEE E ONE TABLET BY MOUTH DAILY 10/07/2012 10/06/2012 Inactive Synthroid 88 mcg tablet RxNorm: 790302 1 Tablet(s) PO d aily TAKE ONE TABLET BY MOUTH DAILY 10/07/2012 01/05/2013 Inactive Kenalog 40 mg/mL Susp for Injection RxNorm: 6591489 1 Milliliter (s) IM 10/07/2012 10/07/2012 Inactive digoxin 250 mcg tablet RxNorm: 9459445 1/2 Tablet(s) PO daily 07/1508/04/2013 Inactive Synthroid 88 mcg tablet RxNorm: 648328 Tablet(s) PO LESLEE E ONE TABLET BY MOUTH DAILY 06/28/2012 10/06/2012 Inactive Accu-Chek Multiclix Lancet RxNorm: Misc Miscellaneous 06/05/2012 0 07/25/2020 Inactive TEST BLOOD SUGAR EVERY DAY Accu-Chek Active Test Strips RxNorm: Strip Miscellaneous 2 07/25/2020 Inactive TEST BLOOD SUGAR EVERY DAY Lipitor 80 mg tablet RxNorm: 348355 1/2 Tablet(s) PO daily 03/28/20 12 03/27/2012 Active TAKE 1 TABLET BY MOUTH EVERY DAY metformin 500 mg tablet RxNorm: 654536 1.5 Tablet(s) PO BID 012 04/09/2013 Inactive Lipitor 80 mg tablet RxNorm: 861853 1/2 Tablet(s) PO 03/28/201208/16 Inactive TAKE 1 TABLET BY MOUTH EVERY DAY Lipitor 80 mg tablet RxNorm: 761003 1/2 Tablet(s) PO daily 03/28/20 12 03/27/2012 Active TAKE 1 TABLET BY MOUTH EVERY DAY Influenza Virus Vaccine 0.5 mL RxNorm: IM 03/26/2012 03/26/20 12 Inactive Pneumovax 23 25 mcg/0.5 mL Injection RxNorm: 1310538 Milliliter( s) Inj 03/26/2012 03/26/2012 Inactive metformin 500 mg tablet RxNorm: 802035 1 Tablet(s) PO BID 11/27/2011 03/27/2012 Inactive Plavix 75 mg tablet RxNorm: 469652 1 Tablet(s) PO daily 11/01/2011 Inactive note directions of one per day Lipitor 80 mg tablet RxNorm: 031945 Tablet(s) PO 10/18/2011 03/27/2012 Inactive TAKE 1 TABLET BY MOUTH EVERY DAY Protonix 40 mg Tab RxNorm: 790861 1 Tablet(s) PO BID 10/11/201112/19 Inactive Accu-Chek Active Test Strips RxNorm: 1 test Miscellaneous homer y 10/04/2011 08/16/2014 Inactive Carafate 1 gram Tab RxNorm: 863222 1 Tablet(s) PO QID 10/02/201110/08 Inactive Carafate 1 gram Tab RxNorm: 775430 1 Tablet(s) PO TID 09/29/201109/07 Inactive Carafate 1 gram Tab RxNorm: 484942 1 Tablet(s) PO TID 09/29/201109/07 Inactive Kenalog 40 mg/mL Susp for Injection RxNorm: 3246073 2 Milliliter (s) Inj 07/31/2011 07/31/2011 Inactive Synthroid 88 mcg tablet RxNorm: 582405 1 Tablet(s) PO daily 011 10/11/2011 Inactive Accu-Chek Active Test Strips RxNorm: 1 test Miscellaneous BID 06/05/2011 10/03/2011 Inactive Accu-Chek Multiclix Lancet RxNorm: 1 test Miscellaneous BID 09/24/2011 Inactive Accu-Chek Active Test strips RxNorm: 1 test Miscellaneous BID 06/02/2011 06/04/2011 Inactive Bactrim DS 800 mg-160 mg Tab RxNorm: 411882 1 Tablet(s) PO BID 05/0905/31/2011 Inactive metformin 500 mg Tab RxNorm: 515779 1 Tablet(s) PO TID 05/05/2011 Inactive Influenza Virus Vaccine 0.5 mL RxNorm: IM 05/02/2011 05/02/20 11 Inactive albuterol sulfate HFA 90 mcg/Actuation Aerosol Inhaler RxNor m: 157799 1 Puff(s) INH PRN prn shortness of breath 05/05/2011 Active Xarelto 20 mg tablet RxNorm: 9727680 1 Tablet(s) PO daily 09/20/2017 Active multivitamin chewable tablet RxNorm: 1 Tablet(s) PO daily 12/21/2015 Active Fish Oil 300 mg-1,000 mg capsule RxNorm: 844299 1 Capsule(s) PO occasional 12/21/2015 Active hyoscyamine 0.125 mg sublingual tablet RxNorm: 5759314 1 Tablet( s) SL Q6 11/01/2016 Active simvastatin 20 mg tablet RxNorm: 027273 1/2 Tablet(s) PO daily 12/0712/20/2015 Inactive Zantac 75 75 mg Tab RxNorm: 840734 2 Tablet(s) PO daily 12/21/2015 Inactive Protonix 40 mg Tab RxNorm: 211719 1 Tablet(s) PO daily 10/11/201109/2011 Inactive Fish Oil 1,000 mg capsule RxNorm: 3 Capsule(s) PO daily 12/21/2015 12/20/2015 Inactive amiodarone 400 mg tablet RxNorm: 690707 1 Tablet(s) PO daily 201712/09/2017 Inactive digoxin 125 mcg tablet RxNorm: 4335699 1 Tablet(s) PO daily 014 08/04/2013 Inactive Brilinta 90 mg Tab RxNorm: 6160683 1 Tablet(s) PO daily 10/11/2011 Inactive Fish Oil 1,000 mg Cap RxNorm: 3 Capsule(s) PO daily 12/21/2015 Inactive Flintstones Complete 18 mg iron chewable tablet RxNorm: 2 Tablet(s) PO daily 12/21/2015 12/20/2015 Inactive Niaspan Extended-Release 500 mg 24 hr Tab RxNorm: 4408635 1 Tabl et(s) PO daily 09/25/2011 09/24/2011 Inactive samples tramadol 50 mg tablet RxNorm: 234881 1 Tablet(s) PO TID 05/15/2017 Inactive aspirin 81 mg Cap, Delayed Release RxNorm: 233585 Capsule(s) PO daily 05/02/2012 05/01/2012 Inactive pantoprazole 40 mg tablet,delayed release RxNorm: 121796 1 Tabl et(s) PO daily 05/27/2018 05/26/2018 Inactive metformin 500 mg Tab RxNorm: 121783 1 Tablet(s) PO BID 05/05/2011 Inactive Singulair 10 mg tablet RxNorm: 786522 1 Tablet(s) PO daily 05/27/20 18 05/26/2018 Inactive Prilosec OTC 20 mg tablet,delayed release RxNorm: 341525 1 Tabl et(s) PO daily 11/01/2016 10/31/2016 Inactive Zantac 150 mg Tab RxNorm: 802265 1 Tablet(s) PO BID 10/11/20112011 Inactive Synthroid 88 mcg Tab RxNorm: 974150 1 Tablet(s) PO daily 06/06/201108/05/2010 Inactive Plavix 75 mg Tab RxNorm: 591343 1 Tablet(s) PO daily 11/01/201110/30 Inactive amiodarone 200 mg tablet RxNorm: 813643 1 Tablet(s) PO BID 01/22/20 18 01/20/2018 Inactive Cartia XT 120 mg capsule,extended release RxNorm: 830026 1 Capsule(s) PO daily and 1 QPM if HR above [address] Dr Aguilar manages 05/27/2018 05/26/2018 Inact pilar aspirin 81 mg Cap, Delayed Release RxNorm: 441025 1 Capsule(s) PO daily 10/04/2011 10/01/2011 Inactive Lipitor 80 mg Tab RxNorm: 620133 1 Tablet(s) PO daily 10/18/201110/07 Inactive Symbicort 160 mcg-4.5 mcg/Actuation HFA Aerosol Inhaler RxNorm: 2835813 1 INH 01/06/2015 01/05/2015 Inactive Medication Administered Medication Codes Instructions Start Date Status Kenalog 40 mg/mL suspension for injection RxNorm: 1269104 Millilite r 09/23/2018 No longer Active Kenalog 40 mg/mL suspension for injection RxNorm: 6907825 1.5Mil liliter 10/30/2017 No longer Active ketorolac 60 mg/2 mL intramuscular solution RxNorm: 833397 2Mil liliter 05/14/2017 No longer Active Kenalog 40 mg/mL suspension for injection RxNorm: 8469302 Millilite r 03/06/2017 No longer Active Kenalog 40 mg/mL suspension for injection RxNorm: 9380917 1.5Mil liliter 09/04/2016 No longer Active Kenalog 40 mg/mL suspension for injection RxNorm: 4327145 1Milli liter 11/11/2015 No longer Active Kenalog 40 mg/mL suspension for injection RxNorm: 9987437 1Milli liter 10/25/2015 No longer Active Kenalog 40 mg/mL suspension for injection RxNorm: 0711069 Millilite r 08/17/2014 No longer Active Kenalog 40 mg/mL suspension for injection RxNorm: 2366802 Millilite r 04/13/2014 No longer Active Kenalog 40 mg/mL Susp for Injection RxNorm: 7719351 1Milliliter No longer Active Influenza Virus Vaccine 0.5 mL RxNorm: 03/26/2012 No longer Active Pneumovax 23 25 mcg/0.5 mL Injection RxNorm: 0915623 Milliliter 0 03/26/2012 No longer Active Kenalog 40 mg/mL Susp for Injection RxNorm: 3569184 2Milliliter No longer Active Influenza Virus Vaccine 0.5 mL RxNorm: 05/02/2011 No longer Active Immunizations Vaccine Codes Dose Date Status Influenza CVX: 197 0.5 04/05/2021 Complete Covid-19 CVX: 207 07/30/2020 Influenza CVX: 197 0.5 04/07/2020 Complete Influenza CVX: 150 0.5 05/13/2019 Complete Influenza CVX: 197 0.5 04/30/2017 Complete Pneumococcal CVX: 133 05/11/2016 Influenza CVX: 197 05/12/2013 Influenza CVX: 197 0.5 03/26/2012 Pneumococcal (Adult) CVX: 33 03/26/2012 Pneumococcal (Adult) CVX: 33 03/26/2012 Influenza CVX: 197 05/02/2011 Influenza CVX: 197 05/05/2010 Results Observation Observation Code Item Item Code Result Date S ervice Location Comp Metabolic Fru068 NA 142 mEq/L 10/09/2022 Unkn own Comp Metabolic Ymw207 K 4.1 mEq/L 10/09/2022 Unkn own Comp Metabolic Rwe324 CL 104 mEq/L 10/09/2022 Unkn own Comp Metabolic Chb531 CO2 28 mEq/L 10/09/2022 Unkn own Comp Metabolic Wdc139 ANION GAP 14 10/09/2022 Unkn own Comp Metabolic Kox351 GLUCOSE 154 mg/dL 10/09/2022 Unkn own Comp Metabolic Vfc045 Creat 0.7 mg/dL 10/09/2022 Unkn own Comp Metabolic Vzn533 eGFR 82 ml/min/1.73m2 10/10/19 23 Unknown Comp Metabolic Qzn106 BUN 15 mg/dL 10/09/2022 Unkn own Comp Metabolic Qtl434 B/C Ratio 20.8 Ratio 10/09/2022 Unk nown Comp Metabolic Dlj836 CALCIUM 8.9 mg/dL 10/09/2022 Unkn own Comp Metabolic Wbn798 ALK PHOS 62 U/L 10/09/2022 Unkn own Comp Metabolic Mim807 AST(SGOT) 22 U/L 10/09/2022 Unkn own Comp Metabolic Qfd151 ALT(SGPT) 21 U/L 10/09/2022 Unkn own Comp Metabolic Fgz662 BILI T 0.9 mg/dL 10/09/2022 Unkn own Comp Metabolic Ihq039 ALBUMIN 4.0 g/dL 10/09/2022 Unkn own Comp Metabolic Son865 TPRO 6.0 g/dL 10/09/2022 Unkn own Comp Metabolic Pme699 GLOB 2.0 g/dL 10/09/2022 Unkn own Comp Metabolic Vxe437 A/G Ratio 2.0 Ratio 10/09/2022 Unkn own Comp Metabolic Mcj308 Osmo 287 mOsmo 10/09/2022 Unkn own Free T4 Zuy792 FREE T4 1.46 ng/dL 10/09/2022 Unknown Cbc With Differential Ord2 WBC 4.26 K/ul 10/10/19 23 Unknown Cbc With Differential Ord2 RBC 5.03 M/ul 10/10/19 23 Unknown Cbc With Differential Ord2 HGB 13.2 g/dl 10/10/19 23 Unknown Cbc With Differential Ord2 Neut% 53.0 % 10/10/19 23 Unknown Cbc With Differential Ord2 HCT 42.8 % 10/10/19 23 Unknown Cbc With Differential Ord2 MCV 85.1 fl 10/10/19 23 Unknown Cbc With Differential Ord2 Lymph% 24.4 % 10/10/19 23 Unknown Cbc With Differential Ord2 MCH 26.2 pg 10/10/19 23 Unknown Cbc With Differential Ord2 [place]% 12.0 % 10/10/19 23 Unknown Cbc With Differential Ord2 MCHC 30.8 pg 10/10/19 23 Unknown Cbc With Differential Ord2 Eos% 9.2 % 10/10/19 23 Unknown Cbc With Differential Ord2 PLT 253 K/ul 10/10/19 23 Unknown Cbc With Differential Ord2 Baso% 1.4 % 10/10/19 23 Unknown Cbc With Differential Ord2 RDW 15.8 % 10/10/19 23 Unknown Cbc With Differential Ord2 Neut ABS# 2.26 K/ul 10/10/19 23 Unknown Cbc With Differential Ord2 Lymph ABS# 1.04 K/ul 023 Unknown Cbc With Differential Ord2 [place] ABS# 0.5 K/ul 10/10/19 23 Unknown Cbc With Differential Ord2 Eos ABS# 0.4 K/ul 10/10/19 23 Unknown Cbc With Differential Ord2 Baso ABS# 0.1 K/ul 10/10/19 23 Unknown Lipid Ord30 CHOL 207 mg/dL 10/09/2022 Unknown Lipid Ord30 HDL 55 mg/dl 10/09/2022 Unknown Lipid Ord30 TRIG 92 mg/dL 10/09/2022 Unknown Lipid Ord30 LDL 134 mg/dL 10/09/2022 Unknown Lipid Ord30 C/HDL 3.8 Ratio 10/09/2022 Unknown Tsh Ord6 TSH (3rd IS) 3.37 uIU/mL 10/09/2022 Unkn own %Hba1C Xeq652 % HbA1c 75232-7 9.0 % 10/09/2022 Unknown %Hba1C Zow553 Gluc Ave 212 mg/dL 10/09/2022 Unknown %Hba1C Rzz107 % HbA1c 32698-8 8.3 % 06/13/2022 Unknown %Hba1C Sdc110 Gluc Ave 192 mg/dL 06/13/2022 Unknown Cbc With Differential Ord2 WBC 4.65 K/ul 06/13/20 22 Unknown Cbc With Differential Ord2 RBC 4.99 M/ul 06/13/20 22 Unknown Cbc With Differential Ord2 HGB 13.1 g/dl 06/13/20 22 Unknown Cbc With Differential Ord2 HCT 43.1 % 06/13/20 22 Unknown Cbc With Differential Ord2 Neut% 56.0 % 06/13/20 22 Unknown Cbc With Differential Ord2 MCV 86.4 fl 06/13/20 22 Unknown Cbc With Differential Ord2 Lymph% 21.7 % 06/13/20 22 Unknown Cbc With Differential Ord2 MCH 26.3 pg 06/13/20 22 Unknown Cbc With Differential Ord2 [place]% 13.3 % 06/13/20 22 Unknown Cbc With Differential Ord2 MCHC 30.4 pg 06/13/20 22 Unknown Cbc With Differential Ord2 Eos% 7.5 % 06/13/20 22 Unknown Cbc With Differential Ord2 PLT 246 K/ul 06/13/20 22 Unknown Cbc With Differential Ord2 Baso% 1.5 % 06/13/20 22 Unknown Cbc With Differential Ord2 RDW 16.1 % 06/13/20 22 Unknown Cbc With Differential Ord2 Neut ABS# 2.60 K/ul 06/13/20 22 Unknown Cbc With Differential Ord2 Lymph ABS# 1.01 K/ul 022 Unknown Cbc With Differential Ord2 [place] ABS# 0.6 K/ul 06/13/20 22 Unknown Cbc With Differential Ord2 Eos ABS# 0.4 K/ul 06/13/20 22 Unknown Cbc With Differential Ord2 Baso ABS# 0.1 K/ul 06/13/20 22 Unknown Lipid Ord30 CHOL 212 mg/dL 06/13/2022 Unknown Lipid Ord30 HDL 50.0 mg/dl 06/13/2022 Unknown Lipid Ord30 TRIG 106 mg/dL 06/13/2022 Unknown Lipid Ord30 LDL 141 mg/dL 06/13/2022 Unknown Lipid Ord30 C/HDL 4.2 Ratio 06/13/2022 Unknown Comp Metabolic Lfw432 NA 140 mEq/L 06/13/2022 Unkn own Comp Metabolic Sbc825 K 4.3 mEq/L 06/13/2022 Unkn own Comp Metabolic Aro569 CL 102 mEq/L 06/13/2022 Unkn own Comp Metabolic Aby644 CO2 30.0 mEq/L 06/13/2022 Unk nown Comp Metabolic Jto546 ANION GAP 12 06/13/2022 Unkn own Comp Metabolic Khd915 GLUCOSE 170 mg/dL 06/13/2022 Unkn own Comp Metabolic Dda755 Creat 0.8 mg/dL 06/13/2022 Unkn own Comp Metabolic Izp847 eGFR 79 ml/min/1.73m2 06/13/20 22 Unknown Comp Metabolic Ips359 BUN 15 mg/dL 06/13/2022 Unkn own Comp Metabolic Ttn260 B/C Ratio 20.0 Ratio 06/13/2022 Unk nown Comp Metabolic Xmd311 CALCIUM 9.0 mg/dL 06/13/2022 Unkn own Comp Metabolic Wiw602 ALK PHOS 68 U/L 06/13/2022 Unkn own Comp Metabolic Etw806 AST(SGOT) 24 U/L 06/13/2022 Unkn own Comp Metabolic Geo174 ALT(SGPT) 19 U/L 06/13/2022 Unkn own Comp Metabolic Ppv577 BILI T 0.9 mg/dL 06/13/2022 Unkn own Comp Metabolic Ecr595 ALBUMIN 4.1 g/dL 06/13/2022 Unkn own Comp Metabolic Ryt312 TPRO 6.5 g/dL 06/13/2022 Unkn own Comp Metabolic Fvl416 GLOB 2.4 g/dL 06/13/2022 Unkn own Comp Metabolic Tbj778 A/G Ratio 1.7 Ratio 06/13/2022 Unkn own Comp Metabolic Epw326 Osmo 284 mOsmo 06/13/2022 Unkn own Tsh Ord6 TSH (3rd IS) 4.97 uIU/mL 06/13/2022 Unkn own Free T4 Bij548 FREE T4 1.23 ng/dL 06/13/2022 Unknown Comp Metabolic Ljt762 NA 140 mEq/L 02/01/2022 Unkn own Comp Metabolic Skn876 K 4.3 mEq/L 02/01/2022 Unkn own Comp Metabolic Tmv439 CL 103 mEq/L 02/01/2022 Unkn own Comp Metabolic Bye152 CO2 29.0 mEq/L 02/01/2022 Unk nown Comp Metabolic Ppu859 ANION GAP 12 02/01/2022 Unkn own Comp Metabolic Dfl247 GLUCOSE 171 mg/dL 02/01/2022 Unkn own Comp Metabolic Jjq160 Creat 0.9 mg/dL 02/01/2022 Unkn own Comp Metabolic Tch852 eGFR 61 ml/min/1.73m2 02/02/20 22 Unknown Comp Metabolic Dei435 BUN 15 mg/dL 02/01/2022 Unkn own Comp Metabolic Dat089 B/C Ratio 16.0 Ratio 02/01/2022 Unk nown Comp Metabolic Iex845 CALCIUM 9.2 mg/dL 02/01/2022 Unkn own Comp Metabolic Lkz664 ALK PHOS 68 U/L 02/01/2022 Unkn own Comp Metabolic Oew732 AST(SGOT) 22 U/L 02/01/2022 Unkn own Comp Metabolic Hso495 ALT(SGPT) 25 U/L 02/01/2022 Unkn own Comp Metabolic Dbt306 BILI T 1.0 mg/dL 02/01/2022 Unkn own Comp Metabolic Tiz999 ALBUMIN 4.1 g/dL 02/01/2022 Unkn own Comp Metabolic Tww161 TPRO 6.5 g/dL 02/01/2022 Unkn own Comp Metabolic Kro357 GLOB 2.4 g/dL 02/01/2022 Unkn own Comp Metabolic Ens034 A/G Ratio 1.7 Ratio 02/01/2022 Unkn own Comp Metabolic Xsc852 Osmo 284 mOsmo 02/01/2022 Unkn own Tsh Ord6 TSH (3rd IS) 2.25 uIU/mL 02/01/2022 Unkn own Free T4 Ogw196 FREE T4 1.68 ng/dL 02/01/2022 Unknown Cbc With Differential Ord2 WBC 5.42 K/ul 02/02/20 22 Unknown Cbc With Differential Ord2 RBC 4.98 M/ul 02/02/20 22 Unknown Cbc With Differential Ord2 HGB 13.2 g/dl 02/02/20 22 Unknown Cbc With Differential Ord2 HCT 43.0 % 02/02/20 22 Unknown Cbc With Differential Ord2 Neut% 62.0 % 02/02/20 22 Unknown Cbc With Differential Ord2 MCV 86.3 fl 02/02/20 22 Unknown Cbc With Differential Ord2 Lymph% 21.2 % 02/02/20 22 Unknown Cbc With Differential Ord2 MCH 26.5 pg 02/02/20 22 Unknown Cbc With Differential Ord2 [place]% 10.9 % 02/02/20 22 Unknown Cbc With Differential Ord2 MCHC 30.7 pg 02/02/20 22 Unknown Cbc With Differential Ord2 Eos% 5.2 % 02/02/20 22 Unknown Cbc With Differential Ord2 PLT 245 K/ul 02/02/20 22 Unknown Cbc With Differential Ord2 Baso% 0.7 % 02/02/20 22 Unknown Cbc With Differential Ord2 RDW 16.0 % 02/02/20 22 Unknown Cbc With Differential Ord2 Neut ABS# 3.36 K/ul 02/02/20 22 Unknown Cbc With Differential Ord2 Lymph ABS# 1.15 K/ul 022 Unknown Cbc With Differential Ord2 [place] ABS# 0.6 K/ul 02/02/20 22 Unknown Cbc With Differential Ord2 Eos ABS# 0.3 K/ul 02/02/20 22 Unknown Cbc With Differential Ord2 Baso ABS# 0.0 K/ul 02/02/20 22 Unknown Lipid Ord30 CHOL 177 mg/dL 02/01/2022 Unknown Lipid Ord30 HDL 48.0 mg/dl 02/01/2022 Unknown Lipid Ord30 TRIG 91 mg/dL 02/01/2022 Unknown Lipid Ord30 LDL 111 mg/dL 02/01/2022 Unknown Lipid Ord30 C/HDL 3.7 Ratio 02/01/2022 Unknown %Hba1C Ngg286 % HbA1c 34694-7 8.2 % 02/01/2022 Unknown %Hba1C Kor529 Gluc Ave 189 mg/dL 02/01/2022 Unknown MEAN GLUC 7795473 Calc Mean Gluc 140 mg/dL 03/28/2021 Unkn own A1C HPLC 1251185 Hgb A1c 09544-1 6.5 % 03/28/2021 Unknown FREE T4 4581360 T4 Free 1.06 ng/dL 03/25/2021 Unknown TSH 0332229 TSH 0.869 uIU/mL 03/25/2021 Unknow n LIPID GRP 3044011 CHOLESTEROL 182 mg/dL 03/25/2021 Unknown LIPID GRP 4568952 Triglyceride 75 mg/dL 03/25/2021 Unknow n LIPID GRP 1012566 HDL CHOLESTEROL 50 mg/dL 03/25/2021 Unk nown LIPID GRP 0811580 Chol/HDL Ratio 3.64 ratio 03/25/2021 Unk nown LIPID GRP 7747282 NON-HDL Chol 132 mg/dL 03/25/2021 Unknow n LIPID GRP 6870502 LDL Cholesterol 117 mg/dL 03/25/2021 Unk nown GFR CALC 8554555 GFR Non Afr Amr >60 mL/min 03/25/2021 Un known GFR CALC 6374902 GFR Afr Amr >60 mL/min 03/25/2021 Unknow n CBC 3606781 WBC 6.5 10e9/L 03/25/2021 Unknown CBC 8904421 RBC 4.96 10e12/L 03/25/2021 Unknow n CBC 5538491 HEMOGLOBIN 14.6 g/dL 03/25/2021 Unknown CBC 5871270 HEMATOCRIT 44.7 % 03/25/2021 Unknown CBC 4644174 MCV 90.1 fL 03/25/2021 Unknown CBC 2343384 MCH 29.4 pg 03/25/2021 Unknown CBC 0366456 MCHC 32.7 g/dL 03/25/2021 Unknown CBC 3448592 PLATELET COUNT 251 10e9/L 03/25/2021 Unk nown CBC 8935349 Mean Plt Volume 10.2 fL 03/25/2021 Unk nown CBC 8525327 Neut Auto 59.7 % 03/25/2021 Unknown CBC 5056656 Lymph Auto 21.0 % 03/25/2021 Unknown CBC 5279315 [place] Auto 8.8 % 03/25/2021 Unknown CBC 1992334 RDW 14.6 % 03/25/2021 Unknown CBC 2682105 Eos Auto 9.3 % 03/25/2021 Unknown CBC 5598148 Baso Auto 1.2 % 03/25/2021 Unknown CBC 8799466 Neutrophil Abs 3.88 10e9/L 03/25/2021 Un known CBC 5571614 Lymphocyte Abs 1.36 10e9/L 03/25/2021 Un known CBC 3123477 Monocyte Abs 0.57 10e9/L 03/25/2021 Unkn own CBC 2052845 Eosinophil Abs 0.60 10e9/L 03/25/2021 Un known CBC 7198759 RDW-SD 47.2 fL 03/25/2021 Unknown CBC 2348452 Basophil Abs 0.08 10e9/L 03/25/2021 Unkn own CHEM 14 7457466 AST 20 U/L 03/25/2021 Unknown CHEM 14 2132823 ALT 18 U/L 03/25/2021 Unknown CHEM 14 3909498 BUN 17 mg/dL 03/25/2021 Unknown CHEM 14 1545424 ALBUMIN 3.9 g/dL 03/25/2021 Unknown CHEM 14 0314105 CHLORIDE 104 mmol/L 03/25/2021 Unknown CHEM 14 4191271 Bili Total 0.8 mg/dL 03/25/2021 Unknown CHEM 14 1671800 ALK PHOS 69 U/L 03/25/2021 Unknown CHEM 14 3277208 SODIUM 138 mmol/L 03/25/2021 Unknown CHEM 14 4669589 CREATININE 0.76 mg/dL 03/25/2021 Unknown CHEM 14 5909147 CALCIUM 9.5 mg/dL 03/25/2021 Unknown CHEM 14 7786816 POTASSIUM 4.2 mmol/L 03/25/2021 Unknown CHEM 14 1022326 TOTAL PROTEIN 7.0 g/dL 03/25/2021 Unkno wn CHEM 14 5840233 GLUCOSE 133 mg/dL 03/25/2021 Unknown CHEM 14 4085466 Bicarbonate 26 mmol/L 03/25/2021 Unknown CHEM 14 7553135 AGAP 8 mmol/L 03/25/2021 Unknown FREE T4 8810423 T4 Free 1.15 ng/dL 11/19/2020 Unknown A1C HPLC 0337423 Hgb A1c 61301-7 7.0 % 11/19/2020 Unknown LIPID GRP 5332866 CHOLESTEROL 205 mg/dL 11/19/2020 Unknown LIPID GRP 2588657 Triglyceride 100 mg/dL 11/19/2020 Unknow n LIPID GRP HDL CHOLESTEROL 54 mg/dL 11/19/2020 Unk nown LIPID GRP Chol/HDL Ratio 3.80 ratio 11/19/2020 Unk nown LIPID GRP NON-HDL Chol 151 mg/dL 11/19/2020 Unknow n LIPID GRP LDL Cholesterol 131 mg/dL 11/19/2020 Unk nown MEAN GLUC 5033676 Calc Mean Gluc 154 mg/dL 11/19/2020 Unkn own GFR CALC 9381076 GFR Non Afr Amr >60 mL/min 11/19/2020 Un known GFR CALC 2806602 GFR Afr Amr >60 mL/min 11/19/2020 Unknow n TSH 9136450 TSH 0.638 uIU/mL 11/19/2020 Unknow n CHEM 14 4545441 AST 22 U/L 11/19/2020 Unknown CHEM 14 8605147 ALT 20 U/L 11/19/2020 Unknown CHEM 14 3670407 BUN 18 mg/dL 11/19/2020 Unknown CHEM 14 6866765 ALBUMIN 4.1 g/dL 11/19/2020 Unknown CHEM 14 6432610 CHLORIDE 104 mmol/L 11/19/2020 Unknown CHEM 14 9515107 Bili Total 0.9 mg/dL 11/19/2020 Unknown CHEM 14 8845414 ALK PHOS 72 U/L 11/19/2020 Unknown CHEM 14 2334240 SODIUM 141 mmol/L 11/19/2020 Unknown CHEM 14 3748110 CREATININE 0.80 mg/dL 11/19/2020 Unknown CHEM 14 5306674 CALCIUM 9.6 mg/dL 11/19/2020 Unknown CHEM 14 8823178 POTASSIUM 4.4 mmol/L 11/19/2020 Unknown CHEM 14 4624286 TOTAL PROTEIN 7.2 g/dL 11/19/2020 Unkno wn CHEM 14 0727896 GLUCOSE 134 mg/dL 11/19/2020 Unknown CHEM 14 5848234 Bicarbonate 31 mmol/L 11/19/2020 Unknown CHEM 14 6787953 AGAP 6 mmol/L 11/19/2020 Unknown LIPID GRP 0158043 CHOLESTEROL 199 mg/dL 03/29/2020 Unknown LIPID GRP 3652877 Triglyceride 95 mg/dL 03/29/2020 Unknow n LIPID GRP HDL CHOLESTEROL 48 mg/dL 03/29/2020 Unk nown LIPID GRP Chol/HDL Ratio 4.15 ratio 03/29/2020 Unk nown LIPID GRP NON-HDL Chol 151 mg/dL 03/29/2020 Unknow n LIPID GRP LDL Cholesterol 132 mg/dL 03/29/2020 Unk nown CBC 5780926 WBC 5.1 10e9/L 03/29/2020 Unknown CBC 6920933 RBC 5.11 10e12/L 03/29/2020 Unknow n CBC 4985927 HEMOGLOBIN 14.4 g/dL 03/29/2020 Unknown CBC 0471318 HEMATOCRIT 44.9 % 03/29/2020 Unknown CBC 8734735 MCV 87.9 fL 03/29/2020 Unknown CBC 4974708 MCH 28.2 pg 03/29/2020 Unknown CBC 1295273 MCHC 32.1 g/dL 03/29/2020 Unknown CBC 8800223 PLATELET COUNT 239 10e9/L 03/29/2020 Unk nown CBC 7003518 Mean Plt Volume 10.2 fL 03/29/2020 Unk nown CBC 9977125 Neut Auto 51.8 % 03/29/2020 Unknown CBC 6385917 Lymph Auto 24.1 % 03/29/2020 Unknown CBC 3879237 [place] Auto 12.9 % 03/29/2020 Unknown CBC 5221128 RDW 15.0 % 03/29/2020 Unknown CBC 6063470 Eos Auto 9.0 % 03/29/2020 Unknown CBC 5806362 Baso Auto 2.2 % 03/29/2020 Unknown CBC 0850576 Neutrophil Abs 2.64 10e9/L 03/29/2020 Un known CBC 9734034 Lymphocyte Abs 1.23 10e9/L 03/29/2020 Un known CBC 7064902 Monocyte Abs 0.66 10e9/L 03/29/2020 Unkn own CBC 1746327 Eosinophil Abs 0.46 10e9/L 03/29/2020 Un known CBC 0062597 RDW-SD 47.8 fL 03/29/2020 Unknown CBC 4268791 Basophil Abs 0.11 10e9/L 03/29/2020 Unkn own CHEM 14 6512436 AST 21 U/L 03/29/2020 Unknown CHEM 14 2863854 ALT 18 U/L 03/29/2020 Unknown CHEM 14 1018678 BUN 20 mg/dL 03/29/2020 Unknown CHEM 14 6208085 ALBUMIN 3.9 g/dL 03/29/2020 Unknown CHEM 14 0046702 CHLORIDE 103 mmol/L 03/29/2020 Unknown CHEM 14 9688037 Bili Total 0.6 mg/dL 03/29/2020 Unknown CHEM 14 1768342 ALK PHOS 76 U/L 03/29/2020 Unknown CHEM 14 0303655 SODIUM 141 mmol/L 03/29/2020 Unknown CHEM 14 4506584 CREATININE 0.91 mg/dL 03/29/2020 Unknown CHEM 14 1236133 CALCIUM 8.9 mg/dL 03/29/2020 Unknown CHEM 14 0669576 POTASSIUM 4.1 mmol/L 03/29/2020 Unknown CHEM 14 3877521 TOTAL PROTEIN 6.8 g/dL 03/29/2020 Unkno wn CHEM 14 8475977 GLUCOSE 137 mg/dL 03/29/2020 Unknown CHEM 14 6479741 Bicarbonate 28 mmol/L 03/29/2020 Unknown CHEM 14 3914658 AGAP 10 mmol/L 03/29/2020 Unknown A1C HPLC 4521488 Hgb A1c 46782-6 7.1 % 03/29/2020 Unknown GFR CALC 7387548 GFR Non Afr Amr 60 mL/min 03/29/2020 Unk nown GFR CALC 9548659 GFR Afr Amr >60 mL/min 03/29/2020 Unknow n MEAN GLUC 7881333 Calc Mean Gluc 157 mg/dL 03/29/2020 Unkn own GFR CALC 8848963 GFR Non Afr Amr >60 mL/min 11/27/2019 Un known GFR CALC 4380271 GFR Afr Amr >60 mL/min 11/27/2019 Unknow n CHEM 14 9215528 AST 14 U/L 11/27/2019 Unknown CHEM 14 5232362 ALT 12 U/L 11/27/2019 Unknown CHEM 14 7328639 BUN 17 mg/dL 11/27/2019 Unknown CHEM 14 4151795 ALBUMIN 4.0 g/dL 11/27/2019 Unknown CHEM 14 4155302 CHLORIDE 104 mmol/L 11/27/2019 Unknown CHEM 14 7001356 Bili Total 0.7 mg/dL 11/27/2019 Unknown CHEM 14 2660509 ALK PHOS 72 U/L 11/27/2019 Unknown CHEM 14 [id number] SODIUM 141 mmol/L 11/27/2019 Unknown CHEM 14 [id number] CREATININE 0.71 mg/dL 11/27/2019 Unknown CHEM 14 [id number] CALCIUM 9.1 mg/dL 11/27/2019 Unknown CHEM 14 [id number] POTASSIUM 3.9 mmol/L 11/27/2019 Unknown CHEM 14 [id number] TOTAL PROTEIN 6.7 g/dL 11/27/2019 Unkno wn CHEM 14 [id number] GLUCOSE 125 mg/dL 11/27/2019 Unknown CHEM 14 [id number] Bicarbonate 28 mmol/L 11/27/2019 Unknown CHEM 14 [id number] AGAP 9 mmol/L 11/27/2019 Unknown MEAN GLUC [id number] Calc Mean Gluc 154 mg/dL 11/27/2019 Unkn own A1C HPLC [id number] Hgb A1c 84869-5 7.0 % 11/27/2019 Unknown FREE T4 2225666 T4 Free 1.16 ng/dL 09/02/2019 Unknown CHEM 14 [id number] AST 13 U/L 09/02/2019 Unknown CHEM 14 [id number] ALT 11 U/L 09/02/2019 Unknown CHEM 14 [id number] BUN 17 mg/dL 09/02/2019 Unknown CHEM 14 7901412 ALBUMIN 4.0 g/dL 09/02/2019 Unknown CHEM 14 [id number] CHLORIDE 103 mmol/L 09/02/2019 Unknown CHEM 14 2802602 Bili Total 0.8 mg/dL 09/02/2019 Unknown CHEM 14 [id number] ALK PHOS 72 U/L 09/02/2019 Unknown CHEM 14 [id number] SODIUM 141 mmol/L 09/02/2019 Unknown CHEM 14 [id number] CREATININE 0.67 mg/dL 09/02/2019 Unknown CHEM 14 [id number] CALCIUM 9.4 mg/dL 09/02/2019 Unknown CHEM 14 [id number] POTASSIUM 3.9 mmol/L 09/02/2019 Unknown CHEM 14 3874576 TOTAL PROTEIN 6.6 g/dL 09/02/2019 Unkno wn CHEM 14 20280111 GLUCOSE 139 mg/dL 09/02/2019 Unknown CHEM 14 [id number] Bicarbonate 29 mmol/L 09/02/2019 Unknown CHEM 14 [id number] AGAP 9 mmol/L 09/02/2019 Unknown TSH [id number] TSH 2.111 uIU/mL 09/02/2019 Unknow n A1C HPLC [id number] Hgb A1c 89653-1 8.1 % 09/02/2019 Unknown LIPID GRP [id number] CHOLESTEROL 194 mg/dL 09/02/2019 Unknown LIPID GRP [id number] Triglyceride 96 mg/dL 09/02/2019 Unknow n LIPID GRP HDL CHOLESTEROL 54 mg/dL 09/02/2019 Unk nown LIPID GRP Chol/HDL Ratio 3.59 ratio 09/02/2019 Unk nown LIPID GRP NON-HDL Chol 140 mg/dL 09/02/2019 Unknow n LIPID GRP LDL Cholesterol 121 mg/dL 09/02/2019 Unk nown CBC [id number] WBC 6.2 10e9/L 09/02/2019 Unknown CBC [id number] RBC 4.93 10e12/L 09/02/2019 Unknow n CBC [id number] HEMOGLOBIN 14.0 g/dL 09/02/2019 Unknown CBC [id number] HEMATOCRIT 44.5 % 09/02/2019 Unknown CBC [id number] MCV 90.3 fL 09/02/2019 Unknown CBC [id number] MCH 28.4 pg 09/02/2019 Unknown CBC [id number] MCHC 31.5 g/dL 09/02/2019 Unknown CBC [id number] PLATELET COUNT 264 10e9/L 09/02/2019 Unk nown CBC [id number] Mean Plt Volume 10.7 fL 09/02/2019 Unk nown CBC [id number] Neut Auto 55.6 % 09/02/2019 Unknown CBC 8110881 Lymph Auto 25.7 % 09/02/2019 Unknown CBC 1611359 [place] Auto 9.2 % 09/02/2019 Unknown CBC 8608822 RDW 15.0 % 09/02/2019 Unknown CBC 0836585 Eos Auto 8.5 % 09/02/2019 Unknown CBC 8087274 Baso Auto 1.0 % 09/02/2019 Unknown CBC 5723700 Neutrophil Abs 3.45 10e9/L 09/02/2019 Un known CBC 6936343 Lymphocyte Abs 1.59 10e9/L 09/02/2019 Un known CBC [id number] Monocyte Abs 0.57 10e9/L 09/02/2019 Unkn own CBC 5025844 Eosinophil Abs 0.53 10e9/L 09/02/2019 Un known CBC 3972302 RDW-SD 48.9 fL 09/02/2019 Unknown CBC 0908961 Basophil Abs 0.06 10e9/L 09/02/2019 Unkn own CHEM 14 4727231 AST 15 U/L 04/30/2019 Unknown CHEM 14 1283927 ALT 13 U/L 04/30/2019 Unknown CHEM 14 5612214 BUN 16 mg/dL 04/30/2019 Unknown CHEM 14 1654759 ALBUMIN 4.1 g/dL 04/30/2019 Unknown CHEM 14 8703929 CHLORIDE 102 mmol/L 04/30/2019 Unknown CHEM 14 0590475 Bili Total 0.7 mg/dL 04/30/2019 Unknown CHEM 14 4250926 ALK PHOS 71 U/L 04/30/2019 Unknown CHEM 14 5369238 SODIUM 140 mmol/L 04/30/2019 Unknown CHEM 14 3849677 CREATININE 0.75 mg/dL 04/30/2019 Unknown CHEM 14 3701784 CALCIUM 9.2 mg/dL 04/30/2019 Unknown CHEM 14 4727674 POTASSIUM 3.9 mmol/L 04/30/2019 Unknown CHEM 14 7838762 TOTAL PROTEIN 6.6 g/dL 04/30/2019 Unkno wn CHEM 14 5645505 GLUCOSE 160 mg/dL 04/30/2019 Unknown CHEM 14 6359084 Bicarbonate 31 mmol/L 04/30/2019 Unknown CHEM 14 8761130 AGAP 7 mmol/L 04/30/2019 Unknown A1C HPLC 8812865 Hgb A1c 34665-7 7.9 % 04/30/2019 Unknown TSH 8272430 TSH 1.728 uIU/mL 04/30/2019 Unknow n MEAN GLUC 9991731 Calc Mean Gluc 180 mg/dL 04/30/2019 Unkn own GFR CALC 3772231 GFR Non Afr Amr >60 mL/min 04/30/2019 Un known GFR CALC 3661834 GFR Afr Amr >60 mL/min 04/30/2019 Unknow n FREE T4 7866972 T4 Free 1.00 ng/dL 04/30/2019 Unknown MEAN GLUC 7992011 Calc Mean Gluc 206 mg/dL 01/13/2019 Unkn own GFR CALC 9194579 GFR Non Afr Amr >60 mL/min 01/13/2019 Un known GFR CALC 5425795 GFR Afr Amr >60 mL/min 01/13/2019 Unknow n LIPID GRP CHOLESTEROL 184 mg/dL 01/13/2019 Unknown LIPID GRP Triglyceride 84 mg/dL 01/13/2019 Unknow n LIPID GRP HDL CHOLESTEROL 51 mg/dL 01/13/2019 Unk nown LIPID GRP Chol/HDL Ratio 3.61 ratio 01/13/2019 Unk nown LIPID GRP NON-HDL Chol 133 mg/dL 01/13/2019 Unknow n LIPID GRP LDL Cholesterol 116 mg/dL 01/13/2019 Unk nown FREE T4 9007003 T4 Free 1.15 ng/dL 01/13/2019 Unknown CHEM 14 4849771 AST 13 U/L 01/13/2019 Unknown CHEM 14 4823980 ALT 12 U/L 01/13/2019 Unknown CHEM 14 3575223 BUN 19 mg/dL 01/13/2019 Unknown CHEM 14 6463511 ALBUMIN 4.0 g/dL 01/13/2019 Unknown CHEM 14 5889738 CHLORIDE 104 mmol/L 01/13/2019 Unknown CHEM 14 0021496 Bili Total 0.5 mg/dL 01/13/2019 Unknown CHEM 14 7318221 ALK PHOS 73 U/L 01/13/2019 Unknown CHEM 14 5342203 SODIUM 139 mmol/L 01/13/2019 Unknown CHEM 14 4754040 CREATININE 0.68 mg/dL 01/13/2019 Unknown CHEM 14 2664321 CALCIUM 9.4 mg/dL 01/13/2019 Unknown CHEM 14 2665240 POTASSIUM 4.1 mmol/L 01/13/2019 Unknown CHEM 14 7732894 TOTAL PROTEIN 6.4 g/dL 01/13/2019 Unkno wn CHEM 14 0454763 GLUCOSE 194 mg/dL 01/13/2019 Unknown CHEM 14 4873339 Bicarbonate 31 mmol/L 01/13/2019 Unknown CHEM 14 1936896 AGAP 4 mmol/L 01/13/2019 Unknown CBC 7764583 WBC 6.4 10e9/L 01/13/2019 Unknown CBC 3156443 RBC 4.85 10e12/L 01/13/2019 Unknow n CBC 3742840 HEMOGLOBIN 13.8 g/dL 01/13/2019 Unknown CBC 5954586 HEMATOCRIT 43.5 % 01/13/2019 Unknown CBC 5600190 MCV 89.7 fL 01/13/2019 Unknown CBC 1830563 MCH 28.5 pg 01/13/2019 Unknown CBC 2877968 MCHC 31.7 g/dL 01/13/2019 Unknown CBC 1183864 PLATELET COUNT 283 10e9/L 01/13/2019 Unk nown CBC 2687345 Mean Plt Volume 10.6 fL 01/13/2019 Unk nown CBC 9382156 Neut Auto 56.2 % 01/13/2019 Unknown CBC 1293218 Lymph Auto 21.7 % 01/13/2019 Unknown CBC 3113236 [place] Auto 10.0 % 01/13/2019 Unknown CBC 1251134 Eos Auto 11.3 % 01/13/2019 Unknown CBC 1403362 RDW 14.9 % 01/13/2019 Unknown CBC 3495104 Baso Auto 0.8 % 01/13/2019 Unknown CBC 1777348 Neutrophil Abs 3.60 10e9/L 01/13/2019 Un known CBC 3383525 Lymphocyte Abs 1.39 10e9/L 01/13/2019 Un known CBC 0897005 Monocyte Abs 0.64 10e9/L 01/13/2019 Unkn own CBC 6228328 Eosinophil Abs 0.72 10e9/L 01/13/2019 Un known CBC 8365477 RDW-SD 47.9 fL 01/13/2019 Unknown CBC 3715045 Basophil Abs 0.05 10e9/L 01/13/2019 Unkn own A1C HPLC 1641509 Hgb A1c 32304-1 8.8 % 01/13/2019 Unknown TSH 8424593 TSH 0.966 uIU/mL 01/13/2019 Unknow n A1C HPLC 8288067 Hgb A1c 06991-2 7.9 % 09/11/2018 Unknown CBC 8012837 WBC 5.6 10e9/L 09/11/2018 Unknown CBC 7931238 RBC 5.07 10e12/L 09/11/2018 Unknow n CBC 7922016 HEMOGLOBIN 13.7 g/dL 09/11/2018 Unknown CBC 4636517 HEMATOCRIT 43.9 % 09/11/2018 Unknown CBC 1463394 MCV 86.6 fL 09/11/2018 Unknown CBC 0121775 MCH 27.0 pg 09/11/2018 Unknown CBC 4620708 MCHC 31.2 g/dL 09/11/2018 Unknown CBC 2629719 PLATELET COUNT 282 10e9/L 09/11/2018 Unk nown CBC 9103931 Mean Plt Volume 10.3 fL 09/11/2018 Unk nown CBC 0903520 Neut Auto 46.8 % 09/11/2018 Unknown CBC 5062321 Lymph Auto 28.0 % 09/11/2018 Unknown CBC 2226712 [place] Auto 10.5 % 09/11/2018 Unknown CBC 5250145 RDW 15.9 % 09/11/2018 Unknown CBC 6364218 Eos Auto 12.9 % 09/11/2018 Unknown CBC 2516320 Baso Auto 1.8 % 09/11/2018 Unknown CBC 6025874 Neutrophil Abs 2.62 10e9/L 09/11/2018 Un known CBC 4897993 Lymphocyte Abs 1.57 10e9/L 09/11/2018 Un known CBC 5033157 Monocyte Abs 0.59 10e9/L 09/11/2018 Unkn own CBC 3394436 Eosinophil Abs 0.72 10e9/L 09/11/2018 Un known CBC 3156509 RDW-SD 49.6 fL 09/11/2018 Unknown CBC 6204176 Basophil Abs 0.10 10e9/L 09/11/2018 Unkn own CHEM 14 0806080 AST 17 U/L 09/11/2018 Unknown CHEM 14 5514739 ALT 14 U/L 09/11/2018 Unknown CHEM 14 8781849 BUN 20 mg/dL 09/11/2018 Unknown CHEM 14 4626863 ALBUMIN 3.8 g/dL 09/11/2018 Unknown CHEM 14 6936009 CHLORIDE 104 mmol/L 09/11/2018 Unknown CHEM 14 8606996 Bili Total 0.7 mg/dL 09/11/2018 Unknown CHEM 14 3556286 ALK PHOS 64 U/L 09/11/2018 Unknown CHEM 14 1093094 SODIUM 143 mmol/L 09/11/2018 Unknown CHEM 14 9974129 CREATININE 0.75 mg/dL 09/11/2018 Unknown CHEM 14 7905717 CALCIUM 9.3 mg/dL 09/11/2018 Unknown CHEM 14 8512563 POTASSIUM 4.3 mmol/L 09/11/2018 Unknown CHEM 14 0517280 TOTAL PROTEIN 6.5 g/dL 09/11/2018 Unkno wn CHEM 14 9095097 GLUCOSE 174 mg/dL 09/11/2018 Unknown CHEM 14 8126049 Bicarbonate 31 mmol/L 09/11/2018 Unknown CHEM 14 4865714 AGAP 8 mmol/L 09/11/2018 Unknown FREE T4 2880194 T4 Free 1.16 ng/dL 09/11/2018 Unknown MEAN GLUC 9710435 Calc Mean Gluc 180 mg/dL 09/11/2018 Unkn own TSH 1635582 TSH 1.080 uIU/mL 09/11/2018 Unknow n GFR CALC 0328806 GFR Non Afr Amr >60 mL/min 09/11/2018 Un known GFR CALC 5418126 GFR Afr Amr >60 mL/min 09/11/2018 Unknow n Free T4 Dqc959 FREE T4 1.66 ng/dL 05/09/2018 Unknown Tsh Ord6 TSH (3rd IS) 2.15 uIU/mL 05/09/2018 Unkn own Cbc With Differential Ord2 WBC 6.54 K/ul 05/09/20 18 Unknown Cbc With Differential Ord2 RBC 4.65 M/ul 05/09/20 18 Unknown Cbc With Differential Ord2 HGB 12.8 g/dl 05/09/20 18 Unknown Cbc With Differential Ord2 HCT 40.6 % 05/09/20 18 Unknown Cbc With Differential Ord2 Neut% 58.5 % 05/09/20 18 Unknown Cbc With Differential Ord2 MCV 87.3 fl 05/09/20 18 Unknown Cbc With Differential Ord2 Lymph% 18.0 % 05/09/20 18 Unknown Cbc With Differential Ord2 MCH 27.5 pg 05/09/20 18 Unknown Cbc With Differential Ord2 [place]% 11.6 % 05/09/20 18 Unknown Cbc With Differential Ord2 MCHC 31.5 pg 05/09/20 18 Unknown Cbc With Differential Ord2 Eos% 10.2 % 05/09/20 18 Unknown Cbc With Differential Ord2 PLT 355 K/ul 05/09/20 18 Unknown Cbc With Differential Ord2 Baso% 1.7 % 05/09/20 18 Unknown Cbc With Differential Ord2 RDW 16.4 % 05/09/20 18 Unknown Cbc With Differential Ord2 Neut ABS# 3.82 K/ul 05/09/20 18 Unknown Cbc With Differential Ord2 Lymph ABS# 1.18 K/ul 018 Unknown Cbc With Differential Ord2 [place] ABS# 0.8 K/ul 05/09/20 18 Unknown Cbc With Differential Ord2 Eos ABS# 0.7 K/ul 05/09/20 18 Unknown Cbc With Differential Ord2 Baso ABS# 0.1 K/ul 05/09/20 18 Unknown Metabolic Ord15 NA 139 mEq/L 05/09/2018 Unknown Metabolic Ord15 K 4.0 mEq/L 05/09/2018 Unknown Metabolic Ord15 CL 101 mEq/L 05/09/2018 Unknown Metabolic Ord15 CO2 31.0 mEq/L 05/09/2018 Unknown Metabolic Ord15 GLUCOSE 171 mg/dL 05/09/2018 Unknown Metabolic Ord15 BUN 19 mg/dL 05/09/2018 Unknown Metabolic Ord15 Creat 0.8 mg/dL 05/09/2018 Unknown Metabolic Ord15 B/C Ratio 23.8 Ratio 05/09/2018 Unknown Metabolic Ord15 eGFR 74 ml/min/1.73m2 05/09/2018 Un known Metabolic Ord15 Osmo 284 mOsmo 05/09/2018 Unknown Metabolic Ord15 ANION GAP 11 05/09/2018 Unknown Metabolic Ord15 CALCIUM 9.3 mg/dL 05/09/2018 Unknown %Hba1C Pzm056 % HbA1c 16569-4 8.9 % 05/09/2018 Unknown %Hba1C Tfz027 Gluc Ave 209 mg/dL 05/09/2018 Unknown LIPID GRP 1347471 CHOLESTEROL 184 mg/dL 01/14/2018 Unknown LIPID GRP 8184616 Triglyceride 65 mg/dL 01/14/2018 Unknow n LIPID GRP 6344046 HDL CHOLESTEROL 53 mg/dL 01/14/2018 [facility] LIPID GRP 9667245 Chol/HDL Ratio 3.47 ratio 01/14/2018 [facility] LIPID GRP 8191879 NON-HDL Chol 131 mg/dL 01/14/2018 Unknow n LIPID GRP 4567778 LDL Cholesterol 118 mg/dL [facility]/14/[facility] 8892867 Hgb A1c 71794-1 6.5 % 01/14/2018 Unknown CBC 2003343 WBC 5.8 10e9/L 01/14/2018 Unknown CBC 4618568 RBC 4.67 10e12/L 01/14/2018 Unknow n CBC 2814695 HEMOGLOBIN 12.4 g/dL 01/14/2018 Unknown CBC 9220507 HEMATOCRIT 40.6 % 01/14/2018 Unknown CBC 6620575 MCV 86.9 fL 01/14/2018 Unknown CBC 3696361 MCH 26.6 pg 01/14/2018 Unknown CBC 5130970 MCHC 30.5 g/dL 01/14/2018 Unknown CBC 8412733 PLATELET COUNT 419 10e9/L 01/14/2018 Unk nown CBC 4957695 Mean Plt Volume 10.1 fL 01/14/2018 Unk nown CBC 7158710 Neut Auto 60.7 % 01/14/2018 Unknown CBC 7815315 Lymph Auto 24.8 % 01/14/2018 Unknown CBC 3523073 [place] Auto 9.7 % 01/14/2018 Unknown CBC 1149080 RDW 25.0 % 01/14/2018 Unknown CBC 9642140 Eos Auto 3.4 % 01/14/2018 Unknown CBC 6634918 Baso Auto 1.4 % 01/14/2018 Unknown CBC 7793856 Neutrophil Abs 3.52 10e9/L 01/14/2018 Un known CBC 4707390 Lymphocyte Abs 1.44 10e9/L 01/14/2018 Un known CBC 9406789 Monocyte Abs 0.56 10e9/L 01/14/2018 Unkn own CBC 9702385 Eosinophil Abs 0.20 10e9/L 01/14/2018 Un known CBC 0613904 RDW-SD 75.4 fL 01/14/2018 Unknown CBC 7507786 Basophil Abs 0.08 10e9/L 01/14/2018 Unkn own MEAN GLUC 5515392 Calc Mean Gluc 140 mg/dL 01/14/2018 Unkn own Culture Urine [id number] URINE CULTURE SEE NOTES 01/03/2018 Unknown Culture Urine [id number] Continued Results 01/04/20 18 Unknown Urine Culture Ucult Complete >100,000 col/ml aerobi c growth sent to ref lab 01/01/2018 Unknown Ferritin Ord22 FERRITIN 4.0 ng/mL 12/04/2017 Unknown Tibc Ord40 Iron 15 ug/dl 12/04/2017 Unknown Tibc Ord40 UIBC 389 ug/dL 12/04/2017 Unknown Tibc Ord40 TIBC 404 ug/dL 12/04/2017 Unknown Tibc Ord40 Fe-%Sat 3.7 % 12/04/2017 Unknown Cbc With Differential Ord2 WBC 9.17 K/ul 11/21/19 18 Unknown Cbc With Differential Ord2 RBC 4.11 M/ul 11/21/19 18 Unknown Cbc With Differential Ord2 HGB 10.2 g/dl 11/21/19 18 Unknown Cbc With Differential Ord2 HCT 33.3 % 11/21/19 18 Unknown Cbc With Differential Ord2 Neut% 70.0 % 11/21/19 18 Unknown Cbc With Differential Ord2 MCV 81.0 fl 11/21/19 18 Unknown Cbc With Differential Ord2 Lymph% 18.0 % 11/21/19 18 Unknown Cbc With Differential Ord2 MCH 24.8 pg 11/21/19 18 Unknown Cbc With Differential Ord2 [place]% 7.9 % 11/21/19 18 Unknown Cbc With Differential Ord2 MCHC 30.6 pg 11/21/19 18 Unknown Cbc With Differential Ord2 Eos% 3.4 % 11/21/19 18 Unknown Cbc With Differential Ord2 PLT 445 K/ul 11/21/19 18 Unknown Cbc With Differential Ord2 Baso% 0.7 % 11/21/19 18 Unknown Cbc With Differential Ord2 RDW 15.6 % 11/21/19 18 Unknown Cbc With Differential Ord2 Neut ABS# 6.43 K/ul 11/21/19 18 Unknown Cbc With Differential Ord2 Lymph ABS# 1.65 K/ul 018 Unknown Cbc With Differential Ord2 [place] ABS# 0.7 K/ul 11/21/19 18 Unknown Cbc With Differential Ord2 Eos ABS# 0.3 K/ul 11/21/19 18 Unknown Cbc With Differential Ord2 Baso ABS# 0.1 K/ul 11/21/19 18 Unknown Comp Metabolic Lfc641 NA 142 mEq/L 11/20/2017 Unkn own Comp Metabolic Qju351 K 4.1 mEq/L 11/20/2017 Unkn own Comp Metabolic Vvg047 CL 104 mEq/L 11/20/2017 Unkn own Comp Metabolic Kyu226 CO2 29.0 mEq/L 11/20/2017 Unk nown Comp Metabolic Aca721 ANION GAP 13 11/20/2017 Unkn own Comp Metabolic Hiz128 GLUCOSE 178 mg/dL 11/20/2017 Unkn own Comp Metabolic Lce149 Creat 0.6 mg/dL 11/20/2017 Unkn own Comp Metabolic Uit111 eGFR 112 ml/min/1.73m2 018 Unknown Comp Metabolic Deo942 BUN 19 mg/dL 11/20/2017 Unkn own Comp Metabolic Wtq169 B/C Ratio 33.9 Ratio 11/20/2017 Unk nown Comp Metabolic Zhm153 CALCIUM 9.3 mg/dL 11/20/2017 Unkn own Comp Metabolic Rvo452 ALK PHOS 60 U/L 11/20/2017 Unkn own Comp Metabolic Nup672 AST(SGOT) 13 U/L 11/20/2017 Unkn own Comp Metabolic Pfp732 ALT(SGPT) 14 U/L 11/20/2017 Unkn own Comp Metabolic Luy570 BILI T 0.4 mg/dL 11/20/2017 Unkn own Comp Metabolic Wzn570 ALBUMIN 4.1 g/dL 11/20/2017 Unkn own Comp Metabolic Lkv823 TPRO 6.0 g/dL 11/20/2017 Unkn own Comp Metabolic Azc883 GLOB 1.9 g/dL 11/20/2017 Unkn own Comp Metabolic Rar085 A/G Ratio 2.2 Ratio 11/20/2017 Unkn own Comp Metabolic Ssw441 Osmo 290 mOsmo 11/20/2017 Unkn own Cbc With Differential Ord2 WBC 10.77 K/ul 018 Unknown Cbc With Differential Ord2 RBC 4.19 M/ul 11/14/19 18 Unknown Cbc With Differential Ord2 HGB 10.4 g/dl 11/14/19 18 Unknown Cbc With Differential Ord2 HCT 34.0 % 11/14/19 18 Unknown Cbc With Differential Ord2 Neut% 74.7 % 11/14/19 18 Unknown Cbc With Differential Ord2 MCV 81.1 fl 11/14/19 18 Unknown Cbc With Differential Ord2 Lymph% 14.6 % 11/14/19 18 Unknown Cbc With Differential Ord2 MCH 24.8 pg 11/14/19 18 Unknown Cbc With Differential Ord2 [place]% 7.8 % 11/14/19 18 Unknown Cbc With Differential Ord2 MCHC 30.6 pg 11/14/19 18 Unknown Cbc With Differential Ord2 Eos% 2.3 % 11/14/19 18 Unknown Cbc With Differential Ord2 PLT 458 K/ul 11/14/19 18 Unknown Cbc With Differential Ord2 Baso% 0.6 % 11/14/19 18 Unknown Cbc With Differential Ord2 RDW 15.2 % 11/14/19 18 Unknown Cbc With Differential Ord2 Neut ABS# 8.04 K/ul 11/14/19 18 Unknown Cbc With Differential Ord2 Lymph ABS# 1.57 K/ul 018 Unknown Cbc With Differential Ord2 [place] ABS# 0.8 K/ul 11/14/19 18 Unknown Cbc With Differential Ord2 Eos ABS# 0.3 K/ul 11/14/19 18 Unknown Cbc With Differential Ord2 Baso ABS# 0.1 K/ul 11/14/19 18 Unknown Comp Metabolic Ncq381 NA 142 mEq/L 11/13/2017 Unkn own Comp Metabolic Hej693 K 4.2 mEq/L 11/13/2017 Unkn own Comp Metabolic Adv655 CL 104 mEq/L 11/13/2017 Unkn own Comp Metabolic Sso813 CO2 26.0 mEq/L 11/13/2017 Unk nown Comp Metabolic Lhz250 ANION GAP 16 11/13/2017 Unkn own Comp Metabolic Hpx030 GLUCOSE 115 mg/dL 11/13/2017 Unkn own Comp Metabolic Tlj040 Creat 0.6 mg/dL 11/13/2017 Unkn own Comp Metabolic Mrj618 eGFR 114 ml/min/1.73m2 018 Unknown Comp Metabolic Dzu074 BUN 15 mg/dL 11/13/2017 Unkn own Comp Metabolic Xts608 B/C Ratio 27.3 Ratio 11/13/2017 Unk nown Comp Metabolic Smh730 CALCIUM 9.2 mg/dL 11/13/2017 Unkn own Comp Metabolic Zis579 ALK PHOS 59 U/L 11/13/2017 Unkn own Comp Metabolic Dhu999 AST(SGOT) 12 U/L 11/13/2017 Unkn own Comp Metabolic Ntu756 ALT(SGPT) 13 U/L 11/13/2017 Unkn own Comp Metabolic Tul094 BILI T 0.5 mg/dL 11/13/2017 Unkn own Comp Metabolic Rps115 ALBUMIN 4.0 g/dL 11/13/2017 Unkn own Comp Metabolic Ame047 TPRO 6.0 g/dL 11/13/2017 Unkn own Comp Metabolic Rlv197 GLOB 2.0 g/dL 11/13/2017 Unkn own Comp Metabolic Hqw045 A/G Ratio 2.0 Ratio 11/13/2017 Unkn own Comp Metabolic Bjx842 Osmo 285 mOsmo 11/13/2017 Unkn own Cbc With Differential Ord2 WBC 9.05 K/ul 09/21/19 18 Unknown Cbc With Differential Ord2 RBC 4.31 M/ul 09/21/19 18 Unknown Cbc With Differential Ord2 HGB 11.6 g/dl 09/21/19 18 Unknown Cbc With Differential Ord2 HCT 37.4 % 09/21/19 18 Unknown Cbc With Differential Ord2 Neut% 68.0 % 09/21/19 18 Unknown Cbc With Differential Ord2 MCV 86.8 fl 09/21/19 18 Unknown Cbc With Differential Ord2 Lymph% 17.1 % 09/21/19 18 Unknown Cbc With Differential Ord2 MCH 26.9 pg 09/21/19 18 Unknown Cbc With Differential Ord2 [place]% 9.9 % 09/21/19 18 Unknown Cbc With Differential Ord2 MCHC 31.0 pg 09/21/19 18 Unknown Cbc With Differential Ord2 Eos% 4.2 % 09/21/19 18 Unknown Cbc With Differential Ord2 PLT 392 K/ul 09/21/19 18 Unknown Cbc With Differential Ord2 Baso% 0.8 % 09/21/19 18 Unknown Cbc With Differential Ord2 RDW 15.9 % 09/21/19 18 Unknown Cbc With Differential Ord2 Neut ABS# 6.15 K/ul 09/21/19 18 Unknown Cbc With Differential Ord2 Lymph ABS# 1.55 K/ul 018 Unknown Cbc With Differential Ord2 [place] ABS# 0.9 K/ul 09/21/19 18 Unknown Cbc With Differential Ord2 Eos ABS# 0.4 K/ul 09/21/19 18 Unknown Cbc With Differential Ord2 Baso ABS# 0.1 K/ul 09/21/19 18 Unknown Comp Metabolic Qrw045 NA 138 mEq/L 09/20/2017 Unkn own Comp Metabolic Hcg996 K 4.0 mEq/L 09/20/2017 Unkn own Comp Metabolic Pzo138 CL 99 mEq/L 09/20/2017 Unkn own Comp Metabolic Hia418 CO2 26.0 mEq/L 09/20/2017 Unk nown Comp Metabolic Qar250 ANION GAP 17 09/20/2017 Unkn own Comp Metabolic Bgf579 GLUCOSE 275 mg/dL 09/20/2017 Unkn own Comp Metabolic Oya298 Creat 0.6 mg/dL 09/20/2017 Unkn own Comp Metabolic Lez845 eGFR 96 ml/min/1.73m2 09/21/19 18 Unknown Comp Metabolic Fsz546 BUN 17 mg/dL 09/20/2017 Unkn own Comp Metabolic Sik338 B/C Ratio 26.6 Ratio 09/20/2017 Unk nown Comp Metabolic Akv709 CALCIUM 9.5 mg/dL 09/20/2017 Unkn own Comp Metabolic Pzj874 ALK PHOS 57 U/L 09/20/2017 Unkn own Comp Metabolic Lwm124 AST(SGOT) 13 U/L 09/20/2017 Unkn own Comp Metabolic Mms759 ALT(SGPT) 13 U/L 09/20/2017 Unkn own Comp Metabolic Tln939 BILI T 0.5 mg/dL 09/20/2017 Unkn own Comp Metabolic Tgg724 ALBUMIN 4.1 g/dL 09/20/2017 Unkn own Comp Metabolic Rpp802 TPRO 5.9 g/dL 09/20/2017 Unkn own Comp Metabolic Rhw825 GLOB 1.8 g/dL 09/20/2017 Unkn own Comp Metabolic Wgy037 A/G Ratio 2.3 Ratio 09/20/2017 Unkn own Comp Metabolic Abs083 Osmo 287 mOsmo 09/20/2017 Unkn own %Hba1C Exa921 % HbA1c 10274-7 7.2 % 09/20/2017 Unknown %Hba1C Gws725 Gluc Ave 160 mg/dL 09/20/2017 Unknown MEAN GLUC 0983471 Calc Mean Gluc 169 mg/dL 02/28/2017 Unkn own CBC 9786729 WBC 7.6 10e9/L 02/28/2017 Unknown CBC 9377472 RBC 4.91 10e12/L 02/28/2017 Unknow n CBC 0246975 HEMOGLOBIN 13.2 g/dL 02/28/2017 Unknown CBC 1234541 HEMATOCRIT 42.7 % 02/28/2017 Unknown CBC 4856001 MCV 87.0 fL 02/28/2017 Unknown CBC 9073119 MCH 26.9 pg 02/28/2017 Unknown CBC 9199447 MCHC 30.9 g/dL 02/28/2017 Unknown CBC 5375026 PLATELET COUNT 341 10e9/L 02/28/2017 Unk nown CBC 9363522 Mean Plt Volume 10.7 fL 02/28/2017 Unk nown CBC 6136907 Neut Auto 62.1 % 02/28/2017 Unknown CBC 2504590 Lymph Auto 20.2 % 02/28/2017 Unknown CBC 8766572 [place] Auto 9.3 % 02/28/2017 Unknown CBC 8524170 RDW 15.8 % 02/28/2017 Unknown CBC 4232438 Eos Auto 7.1 % 02/28/2017 Unknown CBC 4171644 Baso Auto 1.3 % 02/28/2017 Unknown CBC 8073218 Neutrophil Abs 4.72 10e9/L 02/28/2017 Un known CBC 3090895 Lymphocyte Abs 1.54 10e9/L 02/28/2017 Un known CBC 8082219 Monocyte Abs 0.71 10e9/L 02/28/2017 Unkn own CBC 4571698 Eosinophil Abs 0.54 10e9/L 02/28/2017 Un known CBC 5011748 RDW-SD 49.0 fL 02/28/2017 Unknown CBC 7981884 Basophil Abs 0.10 10e9/L 02/28/2017 Unkn own LIPID GRP CHOLESTEROL 189 mg/dL 02/28/2017 Unknown LIPID GRP Triglyceride 124 mg/dL 02/28/2017 Unknow n LIPID GRP HDL CHOLESTEROL 43 mg/dL 02/28/2017 Unk nown LIPID GRP Chol/HDL Ratio 4.40 ratio 02/28/2017 Unk nown LIPID GRP 9630476 NON-HDL Chol 146 mg/dL 02/28/2017 Unknow n LIPID GRP LDL Cholesterol 121 mg/dL 02/28/2017 Unk nown A1C HPLC 0856241 Hgb A1c 94697-7 7.5 % 02/28/2017 Unknown GFR CALC 6358674 GFR Non Afr Amr >60 mL/min 02/28/2017 Un known GFR CALC 5569643 GFR Afr Amr >60 mL/min 02/28/2017 Unknow n CHEM 14 1017499 AST 15 U/L 02/28/2017 Unknown CHEM 14 1046955 ALT 16 U/L 02/28/2017 Unknown CHEM 14 5130413 BUN 18 mg/dL 02/28/2017 Unknown CHEM 14 7282009 ALBUMIN 4.0 g/dL 02/28/2017 Unknown CHEM 14 7965084 CHLORIDE 104 mmol/L 02/28/2017 Unknown CHEM 14 1807179 Bili Total 0.6 mg/dL 02/28/2017 Unknown CHEM 14 7077557 ALK PHOS 53 U/L 02/28/2017 Unknown CHEM 14 6186909 SODIUM 143 mmol/L 02/28/2017 Unknown CHEM 14 2135272 CREATININE 0.66 mg/dL 02/28/2017 Unknown CHEM 14 9626794 CALCIUM 9.2 mg/dL 02/28/2017 Unknown CHEM 14 1386348 POTASSIUM 3.9 mmol/L 02/28/2017 Unknown CHEM 14 5090884 TOTAL PROTEIN 6.6 g/dL 02/28/2017 Unkno wn CHEM 14 1306122 GLUCOSE 146 mg/dL 02/28/2017 Unknown CHEM 14 1920473 Bicarbonate 30 mmol/L 02/28/2017 Unknown CHEM 14 2642544 AGAP 9 mmol/L 02/28/2017 Unknown CBC 8638704 WBC 6.8 10e9/L 08/21/2016 Unknown CBC 9584739 RBC 4.87 10e12/L 08/21/2016 Unknow n CBC 2191147 HEMOGLOBIN 12.7 g/dL 08/21/2016 Unknown CBC 7748744 HEMATOCRIT 40.5 % 08/21/2016 Unknown CBC 2817752 MCV 83.2 fL 08/21/2016 Unknown CBC 7648772 MCH 26.1 pg 08/21/2016 Unknown CBC 4519515 MCHC 31.4 g/dL 08/21/2016 Unknown CBC 3830040 PLATELET COUNT 334 10e9/L 08/21/2016 Unk nown CBC 9747499 Mean Plt Volume 10.5 fL 08/21/2016 Unk nown CBC 0770865 Neut Auto 56.4 % 08/21/2016 Unknown CBC 4938920 Lymph Auto 23.5 % 08/21/2016 Unknown CBC 9945141 [place] Auto 9.7 % 08/21/2016 Unknown CBC 1011746 RDW 16.6 % 08/21/2016 Unknown CBC 1226772 Eos Auto 9.5 % 08/21/2016 Unknown CBC 0502822 Baso Auto 0.9 % 08/21/2016 Unknown CBC 5541962 Neutrophil Abs 3.84 10e9/L 08/21/2016 Un known CBC 6787958 Lymphocyte Abs 1.60 10e9/L 08/21/2016 Un known CBC 4807835 Monocyte Abs 0.66 10e9/L 08/21/2016 Unkn own CBC 0627926 Eosinophil Abs 0.65 10e9/L 08/21/2016 Un known CBC 3365135 RDW-SD 49.7 fL 08/21/2016 Unknown CBC 9991190 Basophil Abs 0.06 10e9/L 08/21/2016 Unkn own FREE T4 5869885 T4 Free 1.39 ng/dL 08/21/2016 Unknown LIPID GRP 9798389 CHOLESTEROL 211 mg/dL 08/21/2016 Unknown LIPID GRP 3365926 Triglyceride 105 mg/dL 08/21/2016 Unknow n LIPID GRP HDL CHOLESTEROL 45 mg/dL 08/21/2016 Unk nown LIPID GRP Chol/HDL Ratio 4.69 ratio 08/21/2016 Unk nown LIPID GRP 8018536 NON-HDL Chol 166 mg/dL 08/21/2016 Unknow n LIPID GRP LDL Cholesterol 145 mg/dL 08/21/2016 Unk nown A1C HPLC 3030441 Hgb A1c 17615-2 7.4 % 08/21/2016 Unknown GFR CALC 3970203 GFR Non Afr Amr >60 mL/min 08/21/2016 Un known GFR CALC 1101104 GFR Afr Amr >60 mL/min 08/21/2016 Unknow n CHEM 14 [id number] AST 16 U/L 08/21/2016 Unknown CHEM 14 1562149 ALT 14 U/L 08/21/2016 Unknown CHEM 14 0759338 BUN 14 mg/dL 08/21/2016 Unknown CHEM 14 2992859 ALBUMIN 4.1 g/dL 08/21/2016 Unknown CHEM 14 2386913 CHLORIDE 105 mmol/L 08/21/2016 Unknown CHEM 14 6476591 Bili Total 0.5 mg/dL 08/21/2016 Unknown CHEM 14 5722294 ALK PHOS 53 U/L 08/21/2016 Unknown CHEM 14 9205711 SODIUM 141 mmol/L 08/21/2016 Unknown CHEM 14 0831086 CREATININE 0.66 mg/dL 08/21/2016 Unknown CHEM 14 7318849 CALCIUM 9.3 mg/dL 08/21/2016 Unknown CHEM 14 4208701 POTASSIUM 4.0 mmol/L 08/21/2016 Unknown CHEM 14 6403843 TOTAL PROTEIN 6.6 g/dL 08/21/2016 Unkno wn CHEM 14 5016151 GLUCOSE 145 mg/dL 08/21/2016 Unknown CHEM 14 9290880 Bicarbonate 29 mmol/L 08/21/2016 Unknown CHEM 14 5570821 AGAP 7 mmol/L 08/21/2016 Unknown TSH 6051366 TSH 1.485 uIU/mL 08/21/2016 Unknow n MEAN GLUC 4409453 Calc Mean Gluc 166 mg/dL 08/21/2016 Unkn own Cbc With Differential Ord2 WBC 6.53 K/ul 04/24/20 16 Unknown Cbc With Differential Ord2 RBC 4.73 M/ul 04/24/20 16 Unknown Cbc With Differential Ord2 HGB 12.0 g/dl 04/24/20 16 Unknown Cbc With Differential Ord2 HCT 38.9 % 04/24/20 16 Unknown Cbc With Differential Ord2 Neut% 55.1 % 04/24/20 16 Unknown Cbc With Differential Ord2 MCV 82.2 fl 04/24/20 16 Unknown Cbc With Differential Ord2 Lymph% 22.8 % 04/24/20 16 Unknown Cbc With Differential Ord2 MCH 25.4 pg 04/24/20 16 Unknown Cbc With Differential Ord2 [place]% 10.9 % 04/24/20 16 Unknown Cbc With Differential Ord2 MCHC 30.8 pg 04/24/20 16 Unknown Cbc With Differential Ord2 Eos% 10.0 % 04/24/20 16 Unknown Cbc With Differential Ord2 PLT 338 K/ul 04/24/20 16 Unknown Cbc With Differential Ord2 Baso% 1.2 % 04/24/20 16 Unknown Cbc With Differential Ord2 RDW 16.7 % 04/24/20 16 Unknown Cbc With Differential Ord2 Neut ABS# 3.60 K/ul 04/24/20 16 Unknown Cbc With Differential Ord2 Lymph ABS# 1.49 K/ul 016 Unknown Cbc With Differential Ord2 [place] ABS# 0.7 K/ul 04/24/20 16 Unknown Cbc With Differential Ord2 Eos ABS# 0.7 K/ul 04/24/20 16 Unknown Cbc With Differential Ord2 Baso ABS# 0.1 K/ul 04/24/20 16 Unknown Comp Metabolic [id number] NA 138 mEq/L 04/24/2016 Unkn own Comp Metabolic Tpc127 K 4.3 mEq/L 04/24/2016 Unkn own Comp Metabolic Mdz311 CL 103 mEq/L 04/24/2016 Unkn own Comp Metabolic Cna450 CO2 28.0 mEq/L 04/24/2016 Unk nown Comp Metabolic Ikx952 ANION GAP 11 04/24/2016 Unkn own Comp Metabolic Gja474 GLUCOSE 138 mg/dL 04/24/2016 Unkn own Comp Metabolic Lom493 Creat 0.6 mg/dL 04/24/2016 Unkn own Comp Metabolic Luy139 eGFR 98 ml/min/1.73m2 04/24/20 16 Unknown Comp Metabolic Vxi263 BUN 16 mg/dL 04/24/2016 Unkn own Comp Metabolic Bzf844 B/C Ratio 25.4 Ratio 04/24/2016 Unk nown Comp Metabolic Rfb085 CALCIUM 9.2 mg/dL 04/24/2016 Unkn own Comp Metabolic Oxz780 ALK PHOS 55 U/L 04/24/2016 Unkn own Comp Metabolic Bax806 AST(SGOT) 16 U/L 04/24/2016 Unkn own Comp Metabolic Bbf983 ALT(SGPT) 16 U/L 04/24/2016 Unkn own Comp Metabolic Ekw375 BILI T 0.6 mg/dL 04/24/2016 Unkn own Comp Metabolic Orj370 ALBUMIN 3.9 g/dL 04/24/2016 Unkn own Comp Metabolic Hga236 TPRO 6.1 g/dL 04/24/2016 Unkn own Comp Metabolic Eiw388 GLOB 2.2 g/dL 04/24/2016 Unkn own Comp Metabolic Hdm029 A/G Ratio 1.7 Ratio 04/24/2016 Unkn own Comp Metabolic Kih733 Osmo 279 mOsmo 04/24/2016 Unkn own Lipid Ord30 CHOL 208 mg/dL 04/24/2016 Unknown Lipid Ord30 HDL 42.0 mg/dl 04/24/2016 Unknown Lipid Ord30 TRIG 98 mg/dL 04/24/2016 Unknown Lipid Ord30 LDL 146 mg/dL 04/24/2016 Unknown Lipid Ord30 C/HDL 5.0 Ratio 04/24/2016 Unknown %Hba1C Cbi394 % HbA1c 89323-7 7.5 % 04/24/2016 Unknown %Hba1C Zln658 Gluc Ave 169 mg/dL 04/24/2016 Unknown Tsh Ord6 hTSH II 0.82 uIU/mL 04/24/2016 Unknown Free T4 Khs118 FREE T4 1.17 ng/dL 04/24/2016 Unknown Digoxin Ord9 DIGOXIN 0.9 NG/ML 02/03/2016 Unknown Free T4 Lxe678 FREE T4 1.17 ng/dL 12/07/2015 Unknown %Hba1C Klr359 % HbA1c 42406-6 7.5 % 12/07/2015 Unknown %Hba1C Pdw416 Gluc Ave 169 mg/dL 12/07/2015 Unknown Tsh Ord6 hTSH II 0.90 uIU/mL 12/07/2015 Unknown Cbc With Differential Ord2 WBC 7.43 K/ul 12/07/19 16 Unknown Cbc With Differential Ord2 RBC 4.70 M/ul 12/07/19 16 Unknown Cbc With Differential Ord2 HGB 12.0 g/dl 12/07/19 16 Unknown Cbc With Differential Ord2 HCT 39.1 % 12/07/19 16 Unknown Cbc With Differential Ord2 Neut% 69.5 % 12/07/19 16 Unknown Cbc With Differential Ord2 MCV 83.2 fl 12/07/19 16 Unknown Cbc With Differential Ord2 Lymph% 16.6 % 12/07/19 16 Unknown Cbc With Differential Ord2 MCH 25.5 pg 12/07/19 16 Unknown Cbc With Differential Ord2 [place]% 9.3 % 12/07/19 16 Unknown Cbc With Differential Ord2 MCHC 30.7 pg 12/07/19 16 Unknown Cbc With Differential Ord2 Eos% 3.9 % 12/07/19 16 Unknown Cbc With Differential Ord2 PLT 346 K/ul 12/07/19 16 Unknown Cbc With Differential Ord2 Baso% 0.7 % 12/07/19 16 Unknown Cbc With Differential Ord2 RDW 16.9 % 12/07/19 16 Unknown Cbc With Differential Ord2 Neut ABS# 5.17 K/ul 12/07/19 16 Unknown Cbc With Differential Ord2 Lymph ABS# 1.23 K/ul 016 Unknown Cbc With Differential Ord2 [place] ABS# 0.7 K/ul 12/07/19 16 Unknown Cbc With Differential Ord2 Eos ABS# 0.3 K/ul 12/07/19 16 Unknown Cbc With Differential Ord2 Baso ABS# 0.1 K/ul 12/07/19 16 Unknown Lipid Ord30 CHOL 196 mg/dL 12/07/2015 Unknown Lipid Ord30 HDL 41.0 mg/dl 12/07/2015 Unknown Lipid Ord30 TRIG 142 mg/dL 12/07/2015 Unknown Lipid Ord30 LDL 127 mg/dL 12/07/2015 Unknown Lipid Ord30 C/HDL 4.8 Ratio 12/07/2015 Unknown Comp Metabolic Bsk791 NA 139 mEq/L 12/07/2015 Unkn own Comp Metabolic Ylg960 K 4.3 mEq/L 12/07/2015 Unkn own Comp Metabolic Ihx062 CL 101 mEq/L 12/07/2015 Unkn own Comp Metabolic Sbc102 CO2 33.0 mEq/L 12/07/2015 Unk nown Comp Metabolic Qxr198 ANION GAP 9 12/07/2015 Unkn own Comp Metabolic Gdr935 GLUCOSE 159 mg/dL 12/07/2015 Unkn own Comp Metabolic Bke160 Creat 0.6 mg/dL 12/07/2015 Unkn own Comp Metabolic Wak384 eGFR 108 ml/min/1.73m2 016 Unknown Comp Metabolic Bji916 BUN 13 mg/dL 12/07/2015 Unkn own Comp Metabolic Bls160 B/C Ratio 22.4 Ratio 12/07/2015 Unk nown Comp Metabolic Nwz657 CALCIUM 9.0 mg/dL 12/07/2015 Unkn own Comp Metabolic Odd780 ALK PHOS 60 U/L 12/07/2015 Unkn own Comp Metabolic Bll576 AST(SGOT) 16 U/L 12/07/2015 Unkn own Comp Metabolic Dno238 ALT(SGPT) 19 U/L 12/07/2015 Unkn own Comp Metabolic Zkd011 BILI T 0.6 mg/dL 12/07/2015 Unkn own Comp Metabolic Igi102 ALBUMIN 4.0 g/dL 12/07/2015 Unkn own Comp Metabolic Vhi854 TPRO 6.0 g/dL 12/07/2015 Unkn own Comp Metabolic Ppb441 GLOB 2.0 g/dL 12/07/2015 Unkn own Comp Metabolic Rlb310 A/G Ratio 1.9 Ratio 12/07/2015 Unkn own Comp Metabolic Qli103 Osmo 281 mOsmo 12/07/2015 Unkn own Cbc With Differential Ord2 WBC 5.8 K/uL 06/14/20 15 Unknown Cbc With Differential Ord2 LYM 1.4 K/uL 06/14/20 15 Unknown Cbc With Differential Ord2 LYM% 24.5 % 06/14/20 15 Unknown Cbc With Differential Ord2 NEUT/GRAN 3.9 K/uL 06/14/20 15 Unknown Cbc With Differential Ord2 NEUT/GRAN % 67.8 % 2014 Unknown Cbc With Differential Ord2 MID 0.4 K/uL 06/14/20 15 Unknown Cbc With Differential Ord2 MID% 7.7 % 06/14/20 15 Unknown Cbc With Differential Ord2 RBC 4.58 M/uL 06/14/20 15 Unknown Cbc With Differential Ord2 HGB 11.4 g/dL 06/14/20 15 Unknown Cbc With Differential Ord2 HCT 38.1 % 06/14/20 15 Unknown Cbc With Differential Ord2 MCV 83 fL 06/14/20 15 Unknown Cbc With Differential Ord2 MCH 25 pg 06/14/20 15 Unknown Cbc With Differential Ord2 MCHC 30 g/dL 06/14/20 15 Unknown Cbc With Differential Ord2 PLT 329 K/uL 06/14/20 15 Unknown Cbc With Differential Ord2 RDW 18.7 % 06/14/20 15 Unknown Tsh Ord6 hTSH II 1.10 uIU/mL 06/14/2015 Unknown %Hba1C Fnk045 % HbA1c 70595-2 6.8 % 06/14/2015 Unknown %Hba1C Nyz112 Gluc Ave 148 mg/dL 06/14/2015 Unknown Free T4 Jzr063 FREE T4 1.31 ng/dL 06/14/2015 Unknown CHEM 14 5711743 AST 14 U/L 12/07/2014 Unknown CHEM 14 9422329 ALT 12 IU/L 12/07/2014 Unknown CHEM 14 8806064 BUN 12 MG/DL 12/07/2014 Unknown CHEM 14 3105315 ALBUMIN 3.9 GM/DL 12/07/2014 Unknown CHEM 14 2070463 CHLORIDE 103 MMOL/L 12/07/2014 Unknown CHEM 14 3062106 BILI TOT 0.6 MG/DL 12/07/2014 Unknown CHEM 14 0761371 ALK PHOS 49 U/L 12/07/2014 Unknown CHEM 14 5442428 SODIUM 140 MMOL/L 12/07/2014 Unknown CHEM 14 5586398 CREATININE 0.57 MG/DL 12/07/2014 Unknown CHEM 14 0451947 CALCIUM 9.5 MG/DL 12/07/2014 Unknown CHEM 14 7035565 POTASSIUM 4.0 MMOL/L 12/07/2014 Unknown CHEM 14 9753814 PROT TOT 6.5 GM/DL 12/07/2014 Unknown CHEM 14 2405779 GLUCOSE 110 MG/DL 12/07/2014 Unknown CHEM 14 0518103 BICARB 29 MMOL/L 12/07/2014 Unknown CHEM 14 8825363 ANION GAP 8 MEQ/L 12/07/2014 Unknown A1C HPLC 0673711 A1C HPLC 53136-8 6.4 % 12/07/2014 Unknown TSH 8025692 TSH 1.106 uIU/ML 12/07/2014 Unknow n LIPID GRP HDL TEST 46 MG/DL 12/07/2014 Unknown LIPID GRP [id number] TRIG 119 MG/DL 12/07/2014 Unknown LIPID GRP [id number] TEST LDL 108 MG/DL 12/07/2014 Unknown LIPID GRP [id number] CHOL 178 MG/DL 12/07/2014 Unknown LIPID GRP 2917057 RCHOL/HDL 3.87 RATIO 12/07/2014 Unknown LIPID GRP 7670968 NON-HDL CH 132 MG/DL 12/07/2014 Unknown CBC 8344575 WBC 6.4 10e9/L 12/07/2014 Unknown CBC 0123519 RBC 4.51 10e12/L 12/07/2014 Unknow n CBC 7151858 HGB 12.2 g/dL 12/07/2014 Unknown CBC 6480952 HCT DET 39.0 % 12/07/2014 Unknown CBC 7111975 MCV 86.5 fL 12/07/2014 Unknown CBC 1915394 MCH 27.1 pg 12/07/2014 Unknown CBC 2547780 MCHC 31.3 g/dL 12/07/2014 Unknown CBC 8299531 PLT 325 10e9/L 12/07/2014 Unknown CBC 9667113 MPV 10.4 fL 12/07/2014 Unknown CBC 1834119 TIM % 62.0 % 12/07/2014 Unknown CBC 8308356 LY % 21.4 % 12/07/2014 Unknown CBC 8183710 MON % 9.5 % 12/07/2014 Unknown CBC 3705309 EOS % 6.3 % 12/07/2014 Unknown CBC 2131370 BASO % 0.8 % 12/07/2014 Unknown CBC 7841574 RDW 15.8 % 12/07/2014 Unknown CBC 0917775 ABS TIM 3.97 10e9/L 12/07/2014 Unknown CBC 5973571 ABS LYMPH 1.37 10e9/L 12/07/2014 Unknown CBC 0238381 ABS MONO 0.61 10e9/L 12/07/2014 Unknown CBC 5966822 ABS EOS 0.40 10e9/L 12/07/2014 Unknown CBC 7898127 ABS BASO 0.05 10e9/L 12/07/2014 Unknown CBC 0852432 RDW-SD 48.8 fL 12/07/2014 Unknown FREE T4 4314579 FREE T4 1.37 NG/DL 12/07/2014 Unknown GFR CALC 5905706 GFR AA >60 ML/MIN 12/07/2014 Unknown GFR CALC 1296799 GFR NON-AA >60 ML/MIN 12/07/2014 Unknown CHEM 14 2983888 AST 17 U/L 11/04/2013 Unknown CHEM 14 5526152 ALT 16 IU/L 11/04/2013 Unknown CHEM 14 8620061 BUN 13 MG/DL 11/04/2013 Unknown CHEM 14 1720927 ALBUMIN 4.3 GM/DL 11/04/2013 Unknown CHEM 14 1808787 CHLORIDE 104 MMOL/L 11/04/2013 Unknown CHEM 14 3594414 BILI TOT 0.7 MG/DL 11/04/2013 Unknown CHEM 14 2112613 ALK PHOS 67 U/L 11/04/2013 Unknown CHEM 14 2607496 SODIUM 140 MMOL/L 11/04/2013 Unknown CHEM 14 1786704 CREATININE 0.64 MG/DL 11/04/2013 Unknown CHEM 14 5476072 CALCIUM 9.5 MG/DL 11/04/2013 Unknown CHEM 14 3678756 POTASSIUM 4.0 MMOL/L 11/04/2013 Unknown CHEM 14 1717786 PROT TOT 6.1 GM/DL 11/04/2013 Unknown CHEM 14 7261895 GLUCOSE 157 MG/DL 11/04/2013 Unknown CHEM 14 0228849 BICARB 27 MMOL/L 11/04/2013 Unknown CHEM 14 9991723 ANION GAP 9 MEQ/L 11/04/2013 Unknown FREE T4 4967664 FREE T4 1.44 NG/DL 11/04/2013 Unknown GFR CALC 3162787 GFR AA >60 ML/MIN 11/04/2013 Unknown GFR CALC 3145240 GFR NON-AA >60 ML/MIN 11/04/2013 Unknown TSH 1302149 TSH 0.841 uIU/ML 11/04/2013 Unknow n A1C HPLC 1079041 A1C HPLC 75591-6 7.2 % 11/04/2013 Unknown LIPID GRP HDL TEST 45 MG/DL 11/04/2013 Unknown LIPID GRP TRIG 104 MG/DL 11/04/2013 Unknown LIPID GRP TEST LDL 82 MG/DL 11/04/2013 Unknown LIPID GRP CHOL 148 MG/DL 11/04/2013 Unknown LIPID GRP RCHOL/HDL 3.29 RATIO 11/04/2013 Unknown CBC 9905475 WBC 6.2 10e9/L 11/04/2013 Unknown CBC 8554478 RBC 4.38 10e12/L 11/04/2013 Unknow n CBC 5550056 HGB 11.8 g/dL 11/04/2013 Unknown CBC 1594563 HCT DET 37.5 % 11/04/2013 Unknown CBC 4831322 MCV 85.6 fL 11/04/2013 Unknown CBC 3177951 MCH 26.9 pg 11/04/2013 Unknown CBC 9526228 MCHC 31.5 g/dL 11/04/2013 Unknown CBC 6556846 PLT 330 10e9/L 11/04/2013 Unknown CBC 0348893 MPV 10.6 fL 11/04/2013 Unknown CBC 1589775 TIM % 60.8 % 11/04/2013 Unknown CBC 7682144 LY % 22.1 % 11/04/2013 Unknown CBC 7114603 MON % 9.6 % 11/04/2013 Unknown CBC 1445651 EOS % 6.4 % 11/04/2013 Unknown CBC 1620176 BASO % 1.1 % 11/04/2013 Unknown CBC 4693997 RDW 15.6 % 11/04/2013 Unknown CBC 2973972 ABS TIM 3.77 10e9/L 11/04/2013 Unknown CBC 1881946 ABS LYMPH 1.37 10e9/L 11/04/2013 Unknown CBC 4333460 ABS MONO 0.60 10e9/L 11/04/2013 Unknown CBC 0206423 ABS EOS 0.40 10e9/L 11/04/2013 Unknown CBC 7272730 ABS BASO 0.07 10e9/L 11/04/2013 Unknown CBC 3506656 RDW-SD 48.0 fL 11/04/2013 Unknown DIGOXIN 6431642 DIGOXIN 0.5 NG/ML 11/04/2013 Unknown A1C HPLC 3760245 A1C HPLC 63921-4 7.6 % 07/28/2013 Unknown LIPID GRP HDL TEST 38 MG/DL 07/28/2013 Unknown LIPID GRP TRIG 137 MG/DL 07/28/2013 Unknown LIPID GRP TEST LDL 73 MG/DL 07/28/2013 Unknown LIPID GRP CHOL 138 MG/DL 07/28/2013 Unknown LIPID GRP RCHOL/HDL 3.63 RATIO 07/28/2013 Unknown LIVER PNL 5914078 BILI DIR 0.2 MG/DL 07/28/2013 Unknown DIGOXIN 2076983 DIGOXIN 0.4 NG/ML 07/28/2013 Unknown CBC 6473804 WBC 7.2 10e9/L 07/28/2013 Unknown CBC 4621533 RBC 4.65 10e12/L 07/28/2013 Unknow n CBC 0389136 HGB 12.6 g/dL 07/28/2013 Unknown CBC 7565727 HCT DET 39.6 % 07/28/2013 Unknown CBC 2513559 MCV 85.2 fL 07/28/2013 Unknown CBC 8862879 MCH 27.1 pg 07/28/2013 Unknown CBC 6133296 MCHC 31.8 g/dL 07/28/2013 Unknown CBC 0873110 PLT 344 10e9/L 07/28/2013 Unknown CBC 8986160 MPV 10.7 fL 07/28/2013 Unknown CBC 6249144 TIM % 61.4 % 07/28/2013 Unknown CBC 1654744 LY % 22.4 % 07/28/2013 Unknown CBC 9255420 MON % 8.4 % 07/28/2013 Unknown CBC 2344576 EOS % 6.8 % 07/28/2013 Unknown CBC 4322590 BASO % 1.0 % 07/28/2013 Unknown CBC 2058859 RDW 15.5 % 07/28/2013 Unknown CBC 9022235 ABS TIM 4.42 10e9/L 07/28/2013 Unknown CBC 1338697 ABS LYMPH 1.61 10e9/L 07/28/2013 Unknown CBC 7597464 ABS MONO 0.60 10e9/L 07/28/2013 Unknown CBC 6581198 ABS EOS 0.49 10e9/L 07/28/2013 Unknown CBC 9169021 ABS BASO 0.07 10e9/L 07/28/2013 Unknown CBC 4883373 RDW-SD 47.2 fL 07/28/2013 Unknown GFR CALC 2154355 GFR AA >60 ML/MIN 07/28/2013 Unknown GFR CALC 7064478 GFR NON-AA >60 ML/MIN 07/28/2013 Unknown CHEM 14 7819896 AST 20 U/L 07/28/2013 Unknown CHEM 14 1027000 ALT 19 IU/L 07/28/2013 Unknown CHEM 14 4308587 BUN 13 MG/DL 07/28/2013 Unknown CHEM 14 3880745 ALBUMIN 4.1 GM/DL 07/28/2013 Unknown CHEM 14 4897019 CHLORIDE 102 MMOL/L 07/28/2013 Unknown CHEM 14 5907395 BILI TOT 0.7 MG/DL 07/28/2013 Unknown CHEM 14 2465632 ALK PHOS 62 U/L 07/28/2013 Unknown CHEM 14 3436085 SODIUM 139 MMOL/L 07/28/2013 Unknown CHEM 14 1972882 CREATININE 0.66 MG/DL 07/28/2013 Unknown CHEM 14 6212156 CALCIUM 9.3 MG/DL 07/28/2013 Unknown CHEM 14 7233992 POTASSIUM 4.4 MMOL/L 07/28/2013 Unknown CHEM 14 8091475 PROT TOT 6.2 GM/DL 07/28/2013 Unknown CHEM 14 0735949 GLUCOSE 160 MG/DL 07/28/2013 Unknown CHEM 14 2083064 BICARB 29 MMOL/L 07/28/2013 Unknown CHEM 14 0560438 ANION GAP 8 MEQ/L 07/28/2013 Unknown DIGOXIN 5206163 DIGOXIN 0.6 NG/ML 05/12/2013 Unknown GFR CALC 3806836 GFR AA >60 ML/MIN 04/29/2013 Unknown GFR CALC 2932823 GFR NON-AA >60 ML/MIN 04/29/2013 Unknown A1C 7338128 A1C HPLC 35390-4 7.5 % 04/29/2013 Unknown TSH 4975505 TSH 1.161 uIU/ML 04/29/2013 Unknow n CHEM 14 0428508 AST 14 U/L 04/29/2013 Unknown CHEM 14 9727517 ALT 14 IU/L 04/29/2013 Unknown CHEM 14 6197547 BUN 13 MG/DL 04/29/2013 Unknown CHEM 14 4872295 ALBUMIN 4.1 GM/DL 04/29/2013 Unknown CHEM 14 4111380 CHLORIDE 102 MMOL/L 04/29/2013 Unknown CHEM 14 3385518 BILI TOT 0.7 MG/DL 04/29/2013 Unknown CHEM 14 7109588 ALK PHOS 75 U/L 04/29/2013 Unknown CHEM 14 8351669 SODIUM 139 MMOL/L 04/29/2013 Unknown CHEM 14 4200723 CREATININE 0.62 MG/DL 04/29/2013 Unknown CHEM 14 8737322 CALCIUM 9.3 MG/DL 04/29/2013 Unknown CHEM 14 0040371 POTASSIUM 4.0 MMOL/L 04/29/2013 Unknown CHEM 14 2291927 PROT TOT 6.5 GM/DL 04/29/2013 Unknown CHEM 14 8352628 GLUCOSE 152 MG/DL 04/29/2013 Unknown CHEM 14 0250403 BICARB 31 MMOL/L 04/29/2013 Unknown CHEM 14 6006800 ANION GAP 6 MEQ/L 04/29/2013 Unknown CBC 8442179 WBC 7.4 10e9/L 04/29/2013 Unknown CBC 6581212 RBC 4.70 10e12/L 04/29/2013 Unknow n CBC 0066252 HGB 12.8 g/dL 04/29/2013 Unknown CBC 4367809 HCT DET 40.1 % 04/29/2013 Unknown CBC 0801159 MCV 85.3 fL 04/29/2013 Unknown CBC 9632513 MCH 27.2 pg 04/29/2013 Unknown CBC 5803445 MCHC 31.9 g/dL 04/29/2013 Unknown CBC 8344849 PLT 312 10e9/L 04/29/2013 Unknown CBC 3753081 MPV 10.4 fL 04/29/2013 Unknown CBC 2180051 TIM % 64.9 % 04/29/2013 Unknown CBC 4320153 LY % 20.0 % 04/29/2013 Unknown CBC 5791169 MON % 8.6 % 04/29/2013 Unknown CBC 5864077 EOS % 5.3 % 04/29/2013 Unknown CBC 2912024 BASO % 1.2 % 04/29/2013 Unknown CBC 1299020 RDW 15.4 % 04/29/2013 Unknown CBC 1860901 ABS TIM 4.80 10e9/L 04/29/2013 Unknown CBC 1492973 ABS LYMPH 1.48 10e9/L 04/29/2013 Unknown CBC 8928558 ABS MONO 0.64 10e9/L 04/29/2013 Unknown CBC 7570692 ABS EOS 0.39 10e9/L 04/29/2013 Unknown CBC 5232885 ABS BASO 0.09 10e9/L 04/29/2013 Unknown CBC 6940089 RDW-SD 47.3 fL 04/29/2013 Unknown LIPID GRP HDL TEST 43 MG/DL 04/29/2013 Unknown LIPID GRP 6925267 TRIG 111 MG/DL 04/29/2013 Unknown LIPID GRP 4726836 TEST LDL 65 MG/DL 04/29/2013 Unknown LIPID GRP CHOL 130 MG/DL 04/29/2013 Unknown LIPID GRP RCHOL/HDL 3.02 RATIO 04/29/2013 Unknown TSH 9747418 TSH 1.406 uIU/ML 12/28/2012 Unknow n A1C 7897162 A1C HPLC 77167-2 7.2 % 12/28/2012 Unknown LIPID GRP HDL TEST 54 MG/DL 12/27/2012 Unknown LIPID GRP TRIG 94 MG/DL 12/27/2012 Unknown LIPID GRP TEST LDL 42 MG/DL 12/27/2012 Unknown LIPID GRP CHOL 115 MG/DL 12/27/2012 Unknown LIPID GRP RCHOL/HDL 2.13 RATIO 12/27/2012 Unknown GFR CALC 2907270 GFR AA >60 ML/MIN 12/27/2012 Unknown GFR CALC 1310667 GFR NON-AA >60 ML/MIN 12/27/2012 Unknown CHEM 14 7211461 AST 14 U/L 12/27/2012 Unknown CHEM 14 9761191 ALT 13 IU/L 12/27/2012 Unknown CHEM 14 0457723 BUN 13 MG/DL 12/27/2012 Unknown CHEM 14 9806820 ALBUMIN 4.5 GM/DL 12/27/2012 Unknown CHEM 14 1806297 CHLORIDE 105 MMOL/L 12/27/2012 Unknown CHEM 14 6436263 BILI TOT 0.8 MG/DL 12/27/2012 Unknown CHEM 14 1340350 ALK PHOS 69 U/L 12/27/2012 Unknown CHEM 14 6229509 SODIUM 142 MMOL/L 12/27/2012 Unknown CHEM 14 2183239 CREATININE 0.73 MG/DL 12/27/2012 Unknown CHEM 14 4028049 CALCIUM 9.7 MG/DL 12/27/2012 Unknown CHEM 14 0162610 POTASSIUM 4.1 MMOL/L 12/27/2012 Unknown CHEM 14 7651809 PROT TOT 6.8 GM/DL 12/27/2012 Unknown CHEM 14 6831300 GLUCOSE 133 MG/DL 12/27/2012 Unknown CHEM 14 1521778 BICARB 30 MMOL/L 12/27/2012 Unknown CHEM 14 6009170 ANION GAP 7 MEQ/L 12/27/2012 Unknown CBC 2163534 WBC 6.8 10e9/L 12/27/2012 Unknown CBC 1718908 RBC 4.72 10e12/L 12/27/2012 Unknow n CBC 9914411 HGB 12.5 g/dL 12/27/2012 Unknown CBC 5156019 HCT DET 39.6 % 12/27/2012 Unknown CBC 4707462 MCV 83.9 fL 12/27/2012 Unknown CBC 3558568 MCH 26.5 pg 12/27/2012 Unknown CBC 8181585 MCHC 31.6 g/dL 12/27/2012 Unknown CBC 4531881 PLT 336 10e9/L 12/27/2012 Unknown CBC 3615520 MPV 10.4 fL 12/27/2012 Unknown CBC 7961667 TIM % 60.7 % 12/27/2012 Unknown CBC 0304133 LY % 24.6 % 12/27/2012 Unknown CBC 8684099 MON % 8.4 % 12/27/2012 Unknown CBC 1177888 EOS % 5.3 % 12/27/2012 Unknown CBC 0603872 BASO % 1.0 % 12/27/2012 Unknown CBC 6537626 RDW 16.6 % 12/27/2012 Unknown CBC 0451973 ABS TIM 4.13 10e9/L 12/27/2012 Unknown CBC 2359535 ABS LYMPH 1.67 10e9/L 12/27/2012 Unknown CBC 8837414 ABS MONO 0.57 10e9/L 12/27/2012 Unknown CBC 2821350 ABS EOS 0.36 10e9/L 12/27/2012 Unknown CBC 8990842 ABS BASO 0.07 10e9/L 12/27/2012 Unknown CBC 0416913 RDW-SD 50.1 fL 12/27/2012 Unknown GFR CALC 3991783 GFR AA >60 ML/MIN 08/27/2012 Unknown GFR CALC 0603014 GFR NON-AA >60 ML/MIN 08/27/2012 Unknown CHEM 14 1673338 AST 15 U/L 08/27/2012 Unknown CHEM 14 8835855 ALT 17 IU/L 08/27/2012 Unknown CHEM 14 8932873 BUN 14 MG/DL 08/27/2012 Unknown CHEM 14 9362482 ALBUMIN 4.2 GM/DL 08/27/2012 Unknown CHEM 14 3313000 CHLORIDE 103 MMOL/L 08/27/2012 Unknown CHEM 14 0316504 BILI TOT 0.6 MG/DL 08/27/2012 Unknown CHEM 14 5403800 ALK PHOS 86 U/L 08/27/2012 Unknown CHEM 14 6553874 SODIUM 141 MMOL/L 08/27/2012 Unknown CHEM 14 5786163 CREATININE 0.64 MG/DL 08/27/2012 Unknown CHEM 14 6453700 CALCIUM 9.5 MG/DL 08/27/2012 Unknown CHEM 14 4141144 POTASSIUM 4.1 MMOL/L 08/27/2012 Unknown CHEM 14 3806213 PROT TOT 6.1 GM/DL 08/27/2012 Unknown CHEM 14 6176520 GLUCOSE 151 MG/DL 08/27/2012 Unknown CHEM 14 8070871 BICARB 30 MMOL/L 08/27/2012 Unknown CHEM 14 5775613 ANION GAP 8 MEQ/L 08/27/2012 Unknown FREE T4 3406235 FREE T4 1.36 NG/DL 08/27/2012 Unknown CBC 9435771 WBC 7.8 10e9/L 08/27/2012 Unknown CBC 3031884 RBC 4.54 10e12/L 08/27/2012 Unknow n CBC 8706635 HGB 12.0 g/dL 08/27/2012 Unknown CBC 4024339 HCT DET 37.9 % 08/27/2012 Unknown CBC 6556078 MCV 83.5 fL 08/27/2012 Unknown CBC 4753366 MCH 26.4 pg 08/27/2012 Unknown CBC 8514990 MCHC 31.7 g/dL 08/27/2012 Unknown CBC 5630240 PLT 370 10e9/L 08/27/2012 Unknown CBC 7548828 MPV 10.7 fL 08/27/2012 Unknown CBC 8804012 TIM % 65.7 % 08/27/2012 Unknown CBC 3503311 LY % 19.5 % 08/27/2012 Unknown CBC 2313868 MON % 9.0 % 08/27/2012 Unknown CBC [id number] EOS % 5.0 % 08/27/2012 Unknown CBC [id number] BASO % 0.8 % 08/27/2012 Unknown CBC 1316309 RDW 15.4 % 08/27/2012 Unknown CBC 1144364 ABS TIM 5.12 10e9/L 08/27/2012 Unknown CBC 4099717 ABS LYMPH 1.52 10e9/L 08/27/2012 Unknown CBC 2852625 ABS MONO 0.70 10e9/L 08/27/2012 Unknown CBC 3166415 ABS EOS 0.39 10e9/L 08/27/2012 Unknown CBC 6614999 ABS BASO 0.06 10e9/L 08/27/2012 Unknown CBC 1667191 RDW-SD 46.3 fL 08/27/2012 Unknown A1C HPLC 8108957 A1C HPLC 50611-7 7.3 % 08/27/2012 Unknown LIPID GRP HDL TEST 41 MG/DL 08/27/2012 Unknown LIPID GRP TRIG 120 MG/DL 08/27/2012 Unknown LIPID GRP TEST LDL 67 MG/DL 08/27/2012 Unknown LIPID GRP CHOL 132 MG/DL 08/27/2012 Unknown LIPID GRP RCHOL/HDL 3.22 RATIO 08/27/2012 Unknown TSH 2623190 TSH 0.933 uIU/ML 08/27/2012 Unknow n DIGOXIN 4288418 DIGOXIN 1.4 NG/ML 07/15/2012 Unknown CBC 4847372 WBC 6.3 10e9/L 07/15/2012 Unknown CBC [id number] RBC 4.44 10e12/L 07/15/2012 Unknow n CBC 7284293 HGB 11.8 g/dL 07/15/2012 Unknown CBC 2289610 HCT DET 36.9 % 07/15/2012 Unknown CBC 4900088 MCV 83.1 fL 07/15/2012 Unknown CBC 7713524 MCH 26.6 pg 07/15/2012 Unknown CBC [id number] MCHC 32.0 g/dL 07/15/2012 Unknown CBC 9124423 PLT 316 10e9/L 07/15/2012 Unknown CBC 9189320 MPV 10.3 fL 07/15/2012 Unknown CBC 2673339 TIM % 64.4 % 07/15/2012 Unknown CBC 1371882 LY % 19.6 % 07/15/2012 Unknown CBC [id number] MON % 9.1 % 07/15/2012 Unknown CBC [id number] EOS % 6.1 % 07/15/2012 Unknown CBC 6124957 BASO % 0.8 % 07/15/2012 Unknown CBC 4742279 RDW 15.3 % 07/15/2012 Unknown CBC 2350680 ABS TIM 4.06 10e9/L 07/15/2012 Unknown CBC [id number] ABS LYMPH 1.23 10e9/L 07/15/2012 Unknown CBC 4909520 ABS MONO 0.57 10e9/L 07/15/2012 Unknown CBC 8484465 ABS EOS 0.38 10e9/L 07/15/2012 Unknown CBC 4968300 ABS BASO 0.05 10e9/L 07/15/2012 Unknown CBC 9827714 RDW-SD 46.2 fL 07/15/2012 Unknown DIGOXIN 7658833 DIGOXIN 1.4 NG/ML 07/04/2012 Unknown BMP 5393061 GLUCOSE 137 MG/DL 07/04/2012 Unknown BMP 4723987 CREATININE 0.86 MG/DL 07/04/2012 Unknown BMP 4924291 BUN 14 MG/DL 07/04/2012 Unknown BMP 9811568 SODIUM 140 MMOL/L 07/04/2012 Unknown BMP 9858059 POTASSIUM 4.5 MMOL/L 07/04/2012 Unknown BMP 6593562 CHLORIDE 103 MMOL/L 07/04/2012 Unknown BMP 3637301 BICARB 28 MMOL/L 07/04/2012 Unknown BMP 3045304 ANION GAP 9 MEQ/L 07/04/2012 Unknown BMP 3356244 CALCIUM 9.7 MG/DL 07/04/2012 Unknown CBC 2914758 WBC 6.9 10e9/L 07/04/2012 Unknown CBC 3345063 RBC 4.56 10e12/L 07/04/2012 Unknow n CBC 8875468 HGB 12.2 g/dL 07/04/2012 Unknown CBC [id number] HCT DET 38.1 % 07/04/2012 Unknown CBC [id number] MCV 83.6 fL 07/04/2012 Unknown CBC [id number] MCH 26.8 pg 07/04/2012 Unknown CBC 7464595 MCHC 32.0 g/dL 07/04/2012 Unknown CBC [id number] PLT 382 10e9/L 07/04/2012 Unknown CBC 3255949 MPV 10.6 fL 07/04/2012 Unknown CBC [id number] TIM % 58.7 % 07/04/2012 Unknown CBC [id number] LY % 23.7 % 07/04/2012 Unknown CBC [id number] MON % 10.2 % 07/04/2012 Unknown CBC [id number] EOS % 6.4 % 07/04/2012 Unknown CBC [id number] BASO % 1.0 % 07/04/2012 Unknown CBC [id number] RDW 15.8 % 07/04/2012 Unknown CBC [id number] ABS TIM 4.05 10e9/L 07/04/2012 Unknown CBC [id number] ABS LYMPH 1.64 10e9/L 07/04/2012 Unknown CBC [id number] ABS MONO 0.70 10e9/L 07/04/2012 Unknown CBC [id number] ABS EOS 0.44 10e9/L 07/04/2012 Unknown CBC [id number] ABS BASO 0.07 10e9/L 07/04/2012 Unknown CBC 9225815 RDW-SD 47.5 fL 07/04/2012 Unknown GFR CALC [id number] GFR AA >60 ML/MIN 07/04/2012 Unknown GFR CALC 5017191 GFR NON-AA >60 ML/MIN 07/04/2012 Unknown A1C HPLC 0090308 A1C HPLC 72959-6 7.1 % 03/27/2012 Unknown GFR CALC 5564922 GFR AA >60 ML/MIN 03/26/2012 Unknown GFR CALC 9445962 GFR NON-AA >60 ML/MIN 03/26/2012 Unknown LIPID GRP HDL TEST 40 MG/DL 03/26/2012 Unknown LIPID GRP TRIG 93 MG/DL 03/26/2012 Unknown LIPID GRP TEST LDL 62 MG/DL 03/26/2012 Unknown LIPID GRP CHOL 121 MG/DL 03/26/2012 Unknown LIPID GRP [id number] RCHOL/HDL 3.03 RATIO 03/26/2012 Unknown TSH 0353744 TSH 0.842 uIU/ML 03/26/2012 Unknow n FREE T4 4299705 FREE T4 1.30 NG/DL 03/26/2012 Unknown CBC [id number] WBC 5.3 10e9/L 03/26/2012 Unknown CBC [id number] RBC 4.70 10e12/L 03/26/2012 Unknow n CBC [id number] HGB 12.1 g/dL 03/26/2012 Unknown CBC [id number] HCT DET 38.1 % 03/26/2012 Unknown CBC [id number] MCV 81.1 fL 03/26/2012 Unknown CBC [id number] MCH 25.7 pg 03/26/2012 Unknown CBC [id number] MCHC 31.8 g/dL 03/26/2012 Unknown CBC [id number] PLT 315 10e9/L 03/26/2012 Unknown CBC [id number] MPV 10.9 fL 03/26/2012 Unknown CBC 4164069 TIM % 54.8 % 03/26/2012 Unknown CBC [id number] LY % 25.8 % 03/26/2012 Unknown CBC [id number] MON % 11.6 % 03/26/2012 Unknown CBC [id number] EOS % 7.0 % 03/26/2012 Unknown CBC [id number] BASO % 0.8 % 03/26/2012 Unknown CBC [id number] RDW 16.7 % 03/26/2012 Unknown CBC 9858432 ABS TIM 2.90 10e9/L 03/26/2012 Unknown CBC [id number] ABS LYMPH 1.37 10e9/L 03/26/2012 Unknown CBC 7651503 ABS MONO 0.61 10e9/L 03/26/2012 Unknown CBC 4142543 ABS EOS 0.37 10e9/L 03/26/2012 Unknown CBC 4050649 ABS BASO 0.04 10e9/L 03/26/2012 Unknown CBC 4856847 RDW-SD 48.8 fL 03/26/2012 Unknown CHEM 14 6091098 AST 18 U/L 03/26/2012 Unknown CHEM 14 1962477 ALT 17 IU/L 03/26/2012 Unknown CHEM 14 [id number] BUN 16 MG/DL 03/26/2012 Unknown CHEM 14 2509430 ALBUMIN 4.3 GM/DL 03/26/2012 Unknown CHEM 14 8551915 CHLORIDE 103 MMOL/L 03/26/2012 Unknown CHEM 14 [id number] BILI TOT 0.9 MG/DL 03/26/2012 Unknown CHEM 14 9628596 ALK PHOS 79 U/L 03/26/2012 Unknown CHEM 14 8659503 SODIUM 140 MMOL/L 03/26/2012 Unknown CHEM 14 8096628 CREATININE 0.70 MG/DL 03/26/2012 Unknown CHEM 14 5080940 CALCIUM 9.6 MG/DL 03/26/2012 Unknown CHEM 14 9703687 POTASSIUM 4.1 MMOL/L 03/26/2012 Unknown CHEM 14 7150498 PROT TOT 6.3 GM/DL 03/26/2012 Unknown CHEM 14 0584982 GLUCOSE 142 MG/DL 03/26/2012 Unknown CHEM 14 5747822 BICARB 29 MMOL/L 03/26/2012 Unknown CHEM 14 4447835 ANION GAP 8 MEQ/L 03/26/2012 Unknown LIPID GRP 4849782 HDL TEST 42 MG/DL 01/08/2012 Unknown LIPID GRP 2320939 TRIG 105 MG/DL 01/08/2012 Unknown LIPID GRP 1282536 TEST LDL 51 MG/DL 01/08/2012 Unknown LIPID GRP [id number] CHOL 114 MG/DL 01/08/2012 Unknown LIPID GRP [id number] RCHOL/HDL 2.71 RATIO 01/08/2012 Unknown CHEM 14 [id number] AST 24 U/L 01/08/2012 Unknown CHEM 14 [id number] ALT 28 IU/L 01/08/2012 Unknown CHEM 14 [id number] BUN 15 MG/DL 01/08/2012 Unknown CHEM 14 [id number] ALBUMIN 4.3 GM/DL 01/08/2012 Unknown CHEM 14 [id number] CHLORIDE 104 MMOL/L 01/08/2012 Unknown CHEM 14 [id number] BILI TOT 0.6 MG/DL 01/08/2012 Unknown CHEM 14 [id number] ALK PHOS 83 U/L 01/08/2012 Unknown CHEM 14 [id number] SODIUM 141 MMOL/L 01/08/2012 Unknown CHEM 14 [id number] CREATININE 0.64 MG/DL 01/08/2012 Unknown CHEM 14 [id number] CALCIUM 9.4 MG/DL 01/08/2012 Unknown CHEM 14 [id number] POTASSIUM 4.0 MMOL/L 01/08/2012 Unknown CHEM 14 [id number] PROT TOT 6.7 GM/DL 01/08/2012 Unknown CHEM 14 [id number] GLUCOSE 145 MG/DL 01/08/2012 Unknown CHEM 14 [id number] BICARB 28 MMOL/L 01/08/2012 Unknown CHEM 14 [id number] ANION GAP 9 MEQ/L 01/08/2012 Unknown CBC [id number] WBC 5.8 10e9/L 01/08/2012 Unknown CBC [id number] RBC 4.36 10e12/L 01/08/2012 Unknow n CBC [id number] HGB 11.6 g/dL 01/08/2012 Unknown CBC [id number] HCT DET 37.4 % 01/08/2012 Unknown CBC [id number] MCV 85.8 fL 01/08/2012 Unknown CBC [id number] MCH 26.6 pg 01/08/2012 Unknown CBC [id number] MCHC 31.0 g/dL 01/08/2012 Unknown CBC [id number] PLT 319 10e9/L 01/08/2012 Unknown CBC [id number] MPV 10.5 fL 01/08/2012 Unknown CBC [id number] TIM % 62.2 % 01/08/2012 Unknown CBC [id number] LY % 20.7 % 01/08/2012 Unknown CBC [id number] MON % 9.3 % 01/08/2012 Unknown CBC [id number] EOS % 6.4 % 01/08/2012 Unknown CBC [id number] BASO % 1.4 % 01/08/2012 Unknown CBC [id number] RDW 14.9 % 01/08/2012 Unknown CBC [id number] ABS TIM 3.61 10e9/L 01/08/2012 Unknown CBC [id number] ABS LYMPH 1.20 10e9/L 01/08/2012 Unknown CBC [id number] ABS MONO 0.54 10e9/L 01/08/2012 Unknown CBC [id number] ABS EOS 0.37 10e9/L 01/08/2012 Unknown CBC [id number] ABS BASO 0.08 10e9/L 01/08/2012 Unknown CBC [id number] RDW-SD 44.9 fL 01/08/2012 Unknown GFR CALC [id number] GFR AA >60 ML/MIN 01/08/2012 Unknown GFR CALC [id number] GFR NON-AA >60 ML/MIN 01/08/2012 Unknown A1C HPLC [id number] A1C HPLC 02923-5 7.2 % 01/08/2012 Unknown Procedures Procedure Codes Date Iaad ia sarscov & influenza virus types a&b CPT-4: 19001 06/05/2022 ADMIN INFLUENZA VIRUS VAC CPT-4: G0008 04/05/2021 IIV NO PRSV INCREASED AG IM CPT-4: 14927 04/05/2021 ADMIN INFLUENZA VIRUS VAC CPT-4: G0008 04/07/2020 IIV NO PRSV INCREASED AG IM CPT-4: 51136 04/07/2020 IIV4 VACC NO PRSV 0.5 ML IM CPT-4: 95763 05/13/2019 IIV4 VACC NO PRSV 0.5 ML IM CPT-4: 53989 05/13/2019 ADMIN INFLUENZA VIRUS VAC CPT-4: G0008 05/13/2019 THER/PROPH/DIAG INJ SC/IM CPT-4: 89699 09/23/2018 TRIAMCINOLONE ACET INJ NOS 10 mg CPT-4: J3301 019 URINALYSIS NONAUTO W/O SCOPE CPT-4: 69544 12/31/2017 OCCULT BLOOD FECES CPT-4: 34286 11/28/2017 TRIAMCINOLONE ACET INJ NOS 10 mg CPT-4: J3301 018 REMOVAL OF IMPACTED WAX MD CPT-4: G0268 05/29/2017 THER/PROPH/DIAG INJ SC/IM CPT-4: 23658 05/14/2017 KETOROLAC TROMETHAMINE INJ 15 mg CPT-4: J1885 017 ADMIN INFLUENZA VIRUS VAC CPT-4: G0008 04/30/2017 IIV NO PRSV INCREASED AG IM CPT-4: 59020 04/30/2017 THER/PROPH/DIAG INJ SC/IM CPT-4: 57063 03/06/2017 TRIAMCINOLONE ACET INJ NOS 10 mg CPT-4: J3301 017 THER/PROPH/DIAG INJ SC/IM CPT-4: 64986 09/04/2016 TRIAMCINOLONE ACET INJ NOS 10 mg CPT-4: J3301 017 THER/PROPH/DIAG INJ SC/IM CPT-4: 37142 11/11/2015 TRIAMCINOLONE ACET INJ NOS 10 mg CPT-4: J3301 016 TRIAMCINOLONE ACET INJ NOS 10 mg CPT-4: J3301 016 THER/PROPH/DIAG INJ SC/IM CPT-4: 40209 10/25/2015 THER/PROPH/DIAG INJ SC/IM CPT-4: 27013 08/17/2014 TRIAMCINOLONE ACET INJ NOS 10 mg CPT-4: J3301 015 TRIAMCINOLONE ACET INJ NOS 10 mg CPT-4: J3301 014 THER/PROPH/DIAG INJ SC/IM CPT-4: 44646 04/13/2014 ROUTINE VENIPUNCTURE CPT-4: 48942 11/04/2013 ROUTINE VENIPUNCTURE CPT-4: 51315 05/12/2013 ADMIN INFLUENZA VIRUS VAC CPT-4: G0008 05/12/2013 FLULAVAL VACC, 3 YRS & >, IM CPT-4: Q2036 05/12/2013 TRIAMCINOLONE ACET INJ NOS 10 mg CPT-4: J3301 013 THER/PROPH/DIAG INJ SC/IM CPT-4: 30452 10/07/2012 ROUTINE VENIPUNCTURE CPT-4: 13856 08/27/2012 ROUTINE VENIPUNCTURE CPT-4: 89898 07/15/2012 ROUTINE VENIPUNCTURE CPT-4: 53241 03/26/2012 ADMIN INFLUENZA VIRUS VAC CPT-4: G0008 03/26/2012 FLULAVAL VACC, 3 YRS & >, IM CPT-4: Q2036 03/26/2012 Pneumococcal Polysaccharide Vaccine, 23-Valent, Ad CPT-4: 90 732 03/26/2012 ROUTINE VENIPUNCTURE CPT-4: 69108 01/08/2012 ROUTINE VENIPUNCTURE CPT-4: 02296 11/06/2011 ROUTINE VENIPUNCTURE CPT-4: 55628 10/25/2011 ROUTINE VENIPUNCTURE CPT-4: 01349 10/16/2011 ROUTINE VENIPUNCTURE CPT-4: 59468 09/25/2011 INJ TRIGGER POINT 1/2 MUSCL CPT-4: 70201 07/31/2011 TRIAMCINOLONE ACET INJ NOS 10 mg CPT-4: J3301 012 PRESCRIP TRANSMIT VIA ERX SY CPT-4: G8553 05/22/2011 ADMIN INFLUENZA VIRUS VAC CPT-4: G0008 05/02/2011 FLULAVAL VACC, 3 YRS & >, IM CPT-4: Q2036 05/02/2011 ROUTINE VENIPUNCTURE CPT-4: 82723 05/02/2011 Vital Signs Date Vital 10/17/2022 Blood Pressure 1: 130/86 Code: 8480-6 BMI: 26.6 Code: 38989-9 Heart Rate 1: 73 bpm Height: 5'1" Code: 8302-2 Respiratory Rate: 18 bpm SpO2: 98% Temperature: 36.2 (C) / 97.1 (F) Weight: 141 lbs Code: 95902-4 06/20/2022 Blood Pressure 1: 130/76 Code: 8480-6 Heart Rate 1: 53 bpm Height: Code: 8302-2 SpO2: 99% Weight: Code: 56591-6 06/05/2022 Heart Rate 1: 85 bpm Height: Code: 8302-2 Respiratory Rate: 17 bpm Weight: Code: 08704-3 02/23/2022 Blood Pressure 1: 138/72 Code: 8480-6 Heart Rate 1: 65 bpm Height: 5'1" Code: 8302-2 SpO2: 98% Temperature: 37.2 (C) / 98.9 (F) Weight: Code: 50882-6 02/20/2022 Blood Pressure 1: 140/76 Code: 8480-6 BMI: 29.5 Code: 14976-0 Heart Rate 1: 62 bpm Height: 5'1" Code: 8302-2 SpO2: 99% Temperature: 3 6.8 (C) / 98.2 (F) Weight: 156 lbs Code: 31763-3 02/06/2022 Blood Pressure 1: 132/76 Code: 8480-6 BMI: 29.5 Code: 05632-9 Heart Rate 1: 52 bpm Height: 5'1" Code: 8302-2 Respiratory Rate: 17 bpm SpO2: 97% Temperature: 36.4 (C) / 97.5 (F) Weight: 156 lbs Code: 66888-6 08/08/2021 Blood Pressure 1: 142/90 Code: 8480-6 BMI: 30.8 Code: 88255-6 Heart Rate 1: 63 bpm Height: 5'1" Code: 8302-2 Respiratory Rate: 17 bpm SpO2: 96% Temperature: 36.3 (C) / 97.4 (F) Weight: 163 lbs Code: 40192-1 04/05/2021 Blood Pressure 1: 160/98 Code: 8480-6 BMI: 30.4 Code: 03616-1 Heart Rate 1: 63 bpm Height: 5'1" Code: 8302-2 Respiratory Rate: 16 bpm SpO2: 96% Temperature: 36.5 (C) / 97.7 (F) Weight: 161 lbs Code: 88307-9 11/30/2020 Blood Pressure 1: 134/70 Code: 8480-6 BMI: 31.4 Code: 14921-8 Heart Rate 1: 81 bpm Height: 5'1" Code: 8302-2 Respiratory Rate: 16 bpm SpO2: 98% Temperature: 36.3 (C) / 97.3 (F) Weight: 166 lbs Code: 04956-2 08/05/2020 Blood Pressure 1: 180/80 Code: 8480-6 BMI: 31.2 Code: 33081-2 Heart Rate 1: 56 bpm Height: 5'1" Code: 8302-2 Respiratory Rate: 18 bpm SpO2: 97% Temperature: 36.1 (C) / 97.0 (F) Weight: 165 lbs Code: 25878-2 04/07/2020 Blood Pressure 1: 142/86 Code: 8480-6 BMI: 31.0 Code: 92095-8 Heart Rate 1: 67 bpm Height: 5'1" Code: 8302-2 SpO2: 99% Temperature: 3 6.7 (C) / 98.1 (F) Weight: 164 lbs Code: 54826-2 12/09/2019 Height: Code: 8302-2 Weight: Code: 294 63-7 09/09/2019 Blood Pressure 1: 142/80 Code: 8480-6 BMI: 31.0 Code: 21097-2 Heart Rate 1: 70 bpm Height: 5'1" Code: 8302-2 Respiratory Rate: 16 bpm SpO2: 98% Weight: 164 lbs Code: 35836-3 05/13/2019 Blood Pressure 1: 160/80 Code: 8480-6 BMI: 30.4 Code: 69585-9 Heart Rate 1: 68 bpm Height: 5'1" Code: 8302-2 SpO2: 97% Weight: 161 lb s Code: 17187-3 02/05/2019 Blood Pressure 1: 140/82 Code: 8480-6 BMI: 30.5 Code: 71123-9 Heart Rate 1: 76 bpm Height: 5'1" Code: 8302-2 SpO2: 97% Weight: 161 lb s 10 oz Code: 77300-2 01/21/2019 Blood Pressure 1: 136/76 Code: 8480-6 BMI: 31.0 Code: 40504-8 Heart Rate 1: 80 bpm Height: 5'1" Code: 8302-2 SpO2: 97% Weight: 164 lb s Code: 46381-5 09/23/2018 Blood Pressure 1: 132/80 Code: 8480-6 BMI: 30.4 Code: 07889-4 Heart Rate 1: 67 bpm Height: 5'1" Code: 8302-2 SpO2: 97% Weight: 161 lb s Code: 85881-8 05/27/2018 Blood Pressure 1: 128/76 Code: 8480-6 BMI: 28.9 Code: 39363-6 Heart Rate 1: 74 bpm Height: 5'1" Code: 8302-2 SpO2: 99% Weight: 153 lb s Code: 23414-9 01/21/2018 Blood Pressure 1: 132/78 Code: 8480-6 BMI: 28.7 Code: 74728-5 Heart Rate 1: 112 bpm Height: 5'1" Code: 8302-2 SpO2: 98% Weight: 152 lb s Code: 15798-7 12/04/2017 Blood Pressure 1: 140/74 Code: 8480-6 BMI: 27.6 Code: 78189-9 Heart Rate 1: 76 bpm Height: 5'1" Code: 8302-2 SpO2: 97% Weight: 146 lb s Code: 59706-6 11/13/2017 Blood Pressure 1: 166/78 Code: 8480-6 BMI: 27.4 Code: 76278-7 Heart Rate 1: 78 bpm Height: 5'1" Code: 8302-2 SpO2: 98% Weight: 145 lb s Code: 72942-7 10/30/2017 Blood Pressure 1: 148/72 Code: 8480-6 BMI: 27.8 Code: 94374-1 Heart Rate 1: 92 bpm Height: 5'1" Code: 8302-2 SpO2: 96% Weight: 147 lb s Code: 02721-1 09/20/2017 Blood Pressure 1: 146/68 Code: 8480-6 BMI: 28.2 Code: 53032-5 Heart Rate 1: 66 bpm Height: 5'1" Code: 8302-2 SpO2: 99% Weight: 149 lb s Code: 37196-0 05/29/2017 Blood Pressure 1: 156/82 Code: 8480-6 BMI: 28.7 Code: 05743-8 Heart Rate 1: 71 bpm Height: 5'1" Code: 8302-2 SpO2: 96% Weight: 152 lb s Code: 49527-0 05/14/2017 Blood Pressure 1: 150/88 Code: 8480-6 BMI: 28.5 Code: 05715-0 Heart Rate 1: 71 bpm Height: 5'1" Code: 8302-2 SpO2: 98% Weight: 151 lb s Code: 45219-2 03/06/2017 Blood Pressure 1: 148/66 Code: 8480-6 BMI: 28.5 Code: 22949-5 Heart Rate 1: 78 bpm Height: 5'1" Code: 8302-2 SpO2: 98% Weight: 151 lb s Code: 23278-0 11/01/2016 Blood Pressure 1: 150/84 Code: 8480-6 BMI: 29.1 Code: 29814-6 Heart Rate 1: 71 bpm Height: 5'1" Code: 8302-2 SpO2: 97% Weight: 154 lb s Code: 84644-8 10/18/2016 Blood Pressure 1: 156/98 Code: 8480-6 Heart Rate 1: 68 bpm Height: 5'1" Code: 8302-2 SpO2: 98% Weight: Code: 97321-5 10/12/2016 Blood Pressure 1: 142/76 Code: 8480-6 BMI: 30.0 Code: 41946-0 Heart Rate 1: 76 bpm Height: 5'1" Code: 8302-2 SpO2: 95% Weight: 159 lb s Code: 25109-0 09/04/2016 Blood Pressure 1: 148/84 Code: 8480-6 Bl ood Pressure 1: 120/70 Code: 8480-6 BMI: 30.0 Code: 50812-3 Heart Rate 1: 72 bpm Height: 5'1" Code: 8302-2 SpO2: 94% Weight: 159 lbs Code: 10234-5 05/30/2016 Blood Pressure 1: 152/84 Code: 8480-6 BMI: 29.9 Code: 83547-1 Heart Rate 1: 76 bpm Height: 5'1" Code: 8302-2 SpO2: 97% Weight: 158 lb s 8 oz Code: 06320-1 05/01/2016 Blood Pressure 1: 146/60 Code: 8480-6 BMI: 29.9 Code: 07813-8 Heart Rate 1: 72 bpm Height: 5'1" Code: 8302-2 SpO2: 97% Weight: 158 lb s Code: 92303-5 02/29/2016 Blood Pressure 1: 152/82 Code: 8480-6 BMI: 30.4 Code: 28488-7 Heart Rate 1: 71 bpm Height: 5'1" Code: 8302-2 SpO2: 96% Weight: 161 lb s Code: 90255-9 02/03/2016 Blood Pressure 1: 148/88 Code: 8480-6 BMI: 30.6 Code: 69934-5 Heart Rate 1: 72 bpm Height: 5'1" Code: 8302-2 SpO2: 98% Weight: 162 lb s Code: 06549-9 12/21/2015 Blood Pressure 1: 180/78 Code: 8480-6 BMI: 30.9 Code: 79384-8 Heart Rate 1: 64 bpm Height: 5'1" Code: 8302-2 SpO2: 97% Weight: 163 lb s 8 oz Code: 02655-9 10/25/2015 Blood Pressure 1: 150/78 Code: 8480-6 BMI: 31.0 Code: 16173-0 Heart Rate 1: 73 bpm Height: 5'1" Code: 8302-2 SpO2: 98% Weight: 164 lb s Code: 30098-3 10/19/2015 Blood Pressure 1: 122/72 Code: 8480-6 BMI: 31.6 Code: 35634-9 Heart Rate 1: 88 bpm Height: 5'1" Code: 8302-2 SpO2: 98% Weight: 167 lb s Code: 40573-3 06/22/2015 Blood Pressure 1: 150/82 Code: 8480-6 BMI: 31.4 Code: 94623-3 Heart Rate 1: 86 bpm Height: 5'1" Code: 8302-2 SpO2: 96% Weight: 166 lb s Code: 03251-0 12/22/2014 Blood Pressure 1: 160/92 Code: 8480-6 BMI: 31.2 Code: 68620-0 Heart Rate 1: 85 bpm Height: 5'1" Code: 8302-2 SpO2: 97% Weight: 165 lb s Code: 76892-6 08/17/2014 Blood Pressure 1: 138/80 Code: 8480-6 BMI: 31.6 Code: 83006-0 Heart Rate 1: 77 bpm Height: 5'1" Code: 8302-2 SpO2: 97% Weight: 167 lb s Code: 59201-5 04/13/2014 Blood Pressure 1: 144/88 Code: 8480-6 BMI: 31.6 Code: 14530-4 Heart Rate 1: 90 bpm Height: 5'1" Code: 8302-2 Weight: 167 lbs Code: 91477 -7 12/11/2013 Blood Pressure 1: 168/90 Code: 8480-6 BMI: 32.3 Code: 92736-3 Heart Rate 1: 72 bpm Height: 5'1" Code: 8302-2 Weight: 171 lbs Code: 42969 -7 11/10/2013 Blood Pressure 1: 150/80 Code: 8480-6 BMI: 32.3 Code: 53779-0 Heart Rate 1: 76 bpm Height: 5'1" Code: 8302-2 Weight: 171 lbs Code: 35334 -7 08/11/2013 Blood Pressure 1: 152/80 Code: 8480-6 BMI: 32.5 Code: 09162-1 Heart Rate 1: 92 bpm Height: 5'1" Code: 8302-2 Temperature: 36.7 (C) / 98.0 (F) Weight: 172 lbs Code: 12666-5 05/12/2013 Blood Pressure 1: 142/102 Code: 8480-6 B lood Pressure 2: 144/98 Code: 8480-6 BMI: 34.2 Code: 57960-0 Heart Rate 1: 80 bpm Height: 5'1" Code: 8302-2 Weight: 181 lbs Code: 99269-9 01/06/2013 Blood Pressure 1: 138/76 Code: 8480-6 BMI: 34.6 Code: 57360-8 Heart Rate 1: 64 bpm Height: 5'1" Code: 8302-2 Weight: 183 lbs Code: 85504 -7 10/07/2012 Blood Pressure 1: 146/76 Code: 8480-6 BMI: 35.6 Code: 70523-1 Heart Rate 1: 76 bpm Height: 5'1" Code: 8302-2 Respiratory Rate: 20 bpm Weight: 1 88 lbs 8 oz Code: 27603-5 09/11/2012 Blood Pressure 1: 158/92 Code: 8480-6 BMI: 35.7 Code: 21592-7 Heart Rate 1: 76 bpm Height: 5'1" Code: 8302-2 Weight: 189 lbs Code: 30948 -7 07/15/2012 Blood Pressure 1: 158/100 Code: 8480-6 BMI: 36.3 Code: 85434-2 Heart Rate 1: 72 bpm Height: 5'1" Code: 8302-2 Respiratory Rate: 20 bpm Weight: 1 92 lbs Code: 75741-1 05/02/2012 Blood Pressure 1: 156/80 Code: 8480-6 BMI: 35.9 Code: 63293-1 Heart Rate 1: 72 bpm Height: 5'1" Code: 8302-2 Weight: 190 lbs Code: 17739 -7 03/28/2012 Blood Pressure 1: 133/88 Code: 8480-6 Heart Rate 1: 78 bpm Weight: 189 lbs Code: 64124-1 11/27/2011 Blood Pressure 1: 178/80 Code: 8480-6 BMI: 36.7 Code: 62178-4 Heart Rate 1: 72 bpm Height: 5'1" Code: 8302-2 Respiratory Rate: 20 bpm Weight: 1 94 lbs Code: 87664-8 10/25/2011 Blood Pressure 1: 122/62 Code: 8480-6 BMI: 37.0 Code: 25790-5 Heart Rate 1: 80 bpm Height: 5'1" Code: 8302-2 Respiratory Rate: 16 bpm Weight: 1 96 lbs Code: 28947-3 10/16/2011 Blood Pressure 1: 136/70 Code: 8480-6 He art Rate 1: 76 bpm 10/11/2011 Blood Pressure 1: 132/60 Code: 8480-6 Heart Rate 1: 84 bpm Respiratory Rate: 20 bpm Weight: 194 lbs Code: 29576-8 10/04/2011 Blood Pressure 1: 152/90 Code: 8480-6 Heart Rate 1: 88 bpm Respiratory Rate: 20 bpm Weight: 193 lbs Code: 11333-7 09/25/2011 Blood Pressure 1: 146/78 Code: 8480-6 Heart Rate 1: 80 bpm Weight: 194 lbs Code: 13182-5 07/31/2011 Blood Pressure 1: 128/78 Code: 8480-6 Bl ood Pressure 2: / Code: 8480-6 BMI: 37.1 Code: 42296-6 Heart Rate 1: 72 bpm Height: 5'1" Code: 8302-2 Respiratory Rate: 16 bpm SpO2: % Temperature: .0 (C) / 32.0 (F) Weig ht: 196 lbs 8 oz Code: 66328-7 05/22/2011 Blood Pressure 1: 147/71 Code: 8480-6 BMI: 18.7 Code: 66578-6 Heart Rate 1: 77 bpm Height: 7'1" Code: 8302-2 Weight: 192 lbs Code: 69184 -7 05/05/2011 Blood Pressure 1: 178/88 Code: 8480-6 BMI: 37.4 Code: 39917-5 Heart Rate 1: 80 bpm Height: 5' Code: 8302-2 Respiratory Rate: 16 bpm Weight: 193 lbs Code: 41948-8 Functional Status No Functional Status data Reason For Visit Reason For Visit Effective Dates Notes hypertension 10/17/2022 diabetes mellitus 10/17/2022 hypothyroid 10/17/2022 hypertension 06/20/2022 diabetes mellitus 06/20/2022 hypothyroid 06/20/2022 cellulitis 02/23/2022 cyst 02/20/2022 hypertension 02/06/2022 diabetes mellitus 02/06/2022 hypothyroid 02/06/2022 hypertension 08/08/2021 diabetes mellitus 08/08/2021 hypothyroid 08/08/2021 hypertension 04/05/2021 diabetes mellitus 04/05/2021 vaccination against influenza 04/05/2021 diabetes mellitus 11/30/2020 hypertension 11/30/2020 hypothyroid 11/30/2020 diabetes mellitus 08/05/2020 hypertension 08/05/2020 diabetes mellitus 04/07/2020 hypertension 04/07/2020 vaccination against influenza 04/07/2020 diabetes mellitus 12/09/2019 hypertension 12/09/2019 diabetes mellitus 09/09/2019 diabetes mellitus 05/13/2019 vaccination against influenza 05/13/2019 diabetes mellitus 02/05/2019 hypertension 01/21/2019 diabetes mellitus 01/21/2019 hypothyroid 01/21/2019 hypertension 09/23/2018 diabetes mellitus 09/23/2018 hypothyroid 09/23/2018 hypertension 05/27/2018 arrhythmia 05/27/2018 diabetes mellitus 05/27/2018 hypothyroid 05/27/2018 hypertension 01/21/2018 arrhythmia 01/21/2018 diabetes mellitus 01/21/2018 dizziness 12/04/2017 dizziness 11/13/2017 cough 10/30/2017 Hospital Follow Up 09/20/2017 gastroesophageal reflux 09/20/2017 back pain 05/29/2017 back pain 05/14/2017 vaccination against influenza 04/30/2017 diabetes mellitus 03/06/2017 wheezing 03/06/2017 Hospital Follow Up 11/01/2016 cough 10/18/2016 dyspnea 10/18/2016 cough 10/12/2016 dyspnea 10/12/2016 diabetes mellitus 09/04/2016 edema 05/30/2016 diabetes mellitus 05/01/2016 mole check 02/29/2016 sinus congestion 02/03/2016 diabetes mellitus 02/03/2016 hypertension 02/03/2016 hypothyroid 02/03/2016 hyperlipidemia 02/03/2016 diarrhea 02/03/2016 gastroesophageal reflux 02/03/2016 diabetes mellitus 12/21/2015 hypertension 12/21/2015 hypothyroid 12/21/2015 hyperlipidemia 12/21/2015 diarrhea 12/21/2015 gastroesophageal reflux 12/21/2015 shortness of breath 10/25/2015 Hospital Follow Up 10/25/2015 shortness of breath 10/19/2015 diabetes mellitus 06/22/2015 hypertension 06/22/2015 hypothyroid 06/22/2015 hyperlipidemia 06/22/2015 diabetes mellitus 12/22/2014 hypertension 12/22/2014 diabetes mellitus 08/17/2014 hypertension 08/17/2014 shortness of breath 08/17/2014 diabetes mellitus 04/13/2014 hypertension 04/13/2014 diabetes mellitus 12/11/2013 hypertension 12/11/2013 diabetes mellitus 11/10/2013 hypertension 11/10/2013 sore throat 08/11/2013 diabetes mellitus 08/11/2013 hypertension 08/11/2013 diabetes mellitus 05/12/2013 vaccination against influenza 05/12/2013 diabetes mellitus 01/06/2013 hypertension 01/06/2013 diabetes mellitus 10/07/2012 diabetes mellitus 09/11/2012 fatigue 07/15/2012 hypertension 07/15/2012 blood pressure followup 05/02/2012 diabetes mellitus 05/02/2012 hypertension 03/28/2012 diabetes mellitus 03/28/2012 hypothyroid 03/28/2012 hyperlipidemia 03/28/2012 vaccination against influenza 03/26/2012 hypertension 11/27/2011 diabetes mellitus 11/27/2011 anemia 10/25/2011 anemia 10/11/2011 fatigue 10/11/2011 fatigue 10/04/2011 diabetes mellitus 09/25/2011 chest pain/pressure 09/25/2011 neck pain 07/31/2011 pt states that it ra diates from the left sidce of her neck to her left shoulder and up into her head and face paresthesia 07/31/2011 neck pain 05/22/2011 sinus congestion 05/22/2011 Green drainage diabetes mellitus 05/05/2011 cholesterol followup 05/05/2011 has questions about meds - getting leg cramps and neck pain - pt stopped taking her med 1 week ago Encounters Encounter Performer Location Location Address Codes Date ([id number]) [id number] EST. PATIENT, LEVEL IV Diagnosis: Type 2 diabetes mellitus with hyperglycemia[ICD10: E11.65] Diagnosis: Atrophy of thyroid (acquired)[ICD10: E03.4] Diagnosis: Essential (primary) hypertension[ICD10: I10] Clarice Elaine MD, [facility] [address] [place] [address] CPT-4: 9921 4 10/17/2022 ([id number]) 60103 EST. PATIENT, LEVEL IV Diagnosis: Essential (primary) hypertension[ICD10: I10] Diagnosis: Atrophy of thyroid (acquired)[ICD10: E03.4] Diagnosis: Type 2 diabetes mellitus with hyperglycemia[ICD10: E11.65] Clarice Elaine MD, [facility] [address] [place] [address] CPT-4: 55938 06/20/2022 ([id number]) 89495 EST. PATIENT, LEVEL IV Diagnosis: Cough in adult[ICD10: R05.9] Diagnosis: Gastro-esophageal reflux disease with esophagitis[ICD10: K21.00] Diagnosis: Esophageal pain[ICD10: K22.89] Clarice Elaine MD, [facility] [address] [place] [address] CPT-4: 85875 06/05 ([id number]) 23689 EST. PATIENT, LEVEL IV Diagnosis: Pancreatic cyst[ICD10: K86.2] Diagnosis: Rash and nonspecific skin eruption[ICD10: R21] Diagnosis: Cyst of buttocks[ICD10: L72.9] Clarice Elaine MD, [facility] [address] [place] [address] CPT-4: 38145 02/23 ([id number]) 06331 EST. PATIENT, LEVEL III Diagnosis: Cellulitis of left buttock[ICD10: L03.317] Socorro Elaine MD, [facility] [address] [place] [address] CPT-4: 9921 3 02/20/2022 ([id number]) 44015 EST. PATIENT, LEVEL IV Diagnosis: Essential (primary) hypertension[ICD10: I10] Diagnosis: Type 2 diabetes mellitus with hyperglycemia[ICD10: BQQ0557] Diagnosis: Atrophy of thyroid (acquired)[ICD10: E03.4] Diagnosis: Paroxysmal atrial fibrillation[ICD10: I48.0] Clarice Elaine MD, [facility] [address] [place] [address] CPT-4: 9921 4 02/06/2022 ([id number]) 28381 EST. PATIENT, LEVEL IV Diagnosis: Essential (primary) hypertension[ICD10: I10] Diagnosis: Mild intermittent asthma in adult without complication[ICD10: J45.21] Diagnosis: Atrophy of thyroid (acquired)[ICD10: E03.4] Diagnosis: Type 2 diabetes mellitus without complications[ICD10: E11.9] Clarice Elaine MD, [facility] [address] [place] [address] CPT-4: 23246 08/08/2021 ([id number]) 59703 EST. PATIENT, LEVEL IV Diagnosis: Essential (primary) hypertension[ICD10: I10] Diagnosis: Mild intermittent asthma in adult without complication[ICD10: J45.21] Diagnosis: Atrophy of thyroid (acquired)[ICD10: E03.4] Diagnosis: Type 2 diabetes mellitus without complications[ICD10: E11.9] Clarice Elaine MD, [facility] [address] [place] [address] CPT-4: 28437 04/05/2021 ([id number]) 55070 EST. PATIENT, LEVEL IV Diagnosis: Essential (primary) hypertension[ICD10: I10] Diagnosis: Atrophy of thyroid (acquired)[ICD10: E03.4] Diagnosis: Type 2 diabetes mellitus without complications[ICD10: E11.9] Clarice Elaine MD, [facility] [address] [place] [address] CPT-4: 50529 11/30/2020 ([id number]) 25095 EST. PATIENT, LEVEL IV Diagnosis: Atrophy of thyroid (acquired)[ICD10: E03.4] Diagnosis: Essential (primary) hypertension[ICD10: I10] Diagnosis: Type 2 diabetes mellitus with hyperglycemia[ICD10: E11.65] Diagnosis: Paroxysmal atrial fibrillation[ICD10: I48.0] Clarice Elaine MD, [facility] [address] [place] [address] CPT-4: 9921 4 08/05/2020 ([id number]) 86131 EST. PATIENT, LEVEL IV Diagnosis: Influenza vaccine administered[ICD10: Z23] Diagnosis: Essential (primary) hypertension[ICD10: I10] Diagnosis: Atrophy of thyroid (acquired)[ICD10: E03.4] Diagnosis: Type 2 diabetes mellitus without complications[ICD10: E11.9] Clarice Elaine MD, [facility] [address] [place] [address] CPT-4: 38715 04/07/2020 ([id number]) 15277 EST. PATIENT, LEVEL III Diagnosis: Type 2 diabetes mellitus without complications[ICD10: E11.9] Clarice Elaine MD, [facility] [address] [place] [address] CPT-4: 88513 02/12/2020 ([id number]) 20693 EST. PATIENT, LEVEL III Diagnosis: Essential (primary) hypertension[ICD10: I10] Diagnosis: Type 2 diabetes mellitus without complications[ICD10: E11.9] Clarice Elaine [facility] [address] [place], [place] [address] CPT-4: 74229 12/09/2019 ([id number]) 45335 EST. PATIENT, LEVEL IV Diagnosis: Essential (primary) hypertension[ICD10: I10] Diagnosis: Type 2 diabetes mellitus with hyperglycemia[ICD10: E11.65] Diagnosis: Atrophy of thyroid (acquired)[ICD10: E03.4] Clarice Elaine MD, [facility] [address] [place] [address] CPT-4: 9921 4 09/09/2019 ([id number]) 89690 EST. PATIENT, LEVEL IV Diagnosis: Type 2 diabetes mellitus with hyperglycemia[ICD10: E11.65] Diagnosis: Essential (primary) hypertension[ICD10: I10] Diagnosis: VACCIN FOR INFLUENZA[ICD10: Z23] Diagnosis: Mild intermittent asthma in adult without complication[ICD10: J45.20] Clarice Elaine MD, [facility] [address] [place] [address] CPT-4: 42336 05/13/2019 ([id number]) 07274 EST. PATIENT, LEVEL III Diagnosis: Type 2 diabetes mellitus without complications[ICD10: E11.9] Diagnosis: Essential (primary) hypertension[ICD10: I10] Clarice Elaine MD, [facility] [address] [place] [address] CPT-4: 9921 3 02/05/2019 ([id number]) 13184 EST. PATIENT, LEVEL IV Diagnosis: Essential (primary) hypertension[ICD10: I10] Diagnosis: Mild intermittent asthma with (acute) exacerbation[ICD10: J45.21] Diagnosis: Type 2 diabetes mellitus with hyperglycemia[ICD10: E11.65] Diagnosis: Acute bronchitis due to other specified organisms[ICD10: J20.8] Clarice Elaine MD, [facility] [address] [place] [address] CPT-4: 56562 01/21/2019 ([id number]) 18918 EST. PATIENT, LEVEL IV Diagnosis: Cough[ICD10: R05] Diagnosis: Atrophy of thyroid (acquired)[ICD10: E03.4] Diagnosis: Type 2 diabetes mellitus with hyperglycemia[ICD10: E11.65] Clarice Elaine MD, [facility] [address] [place] [address] CPT-4: 17506 09/23/2018 ([id number]) 98625 EST. PATIENT, LEVEL IV Diagnosis: Type 2 diabetes mellitus with hyperglycemia[ICD10: E11.65] Diagnosis: Atrophy of thyroid (acquired)[ICD10: E03.4] Clarice Elaine MD, [facility] [address] [place] [address] CPT-4: 9921 4 05/27/2018 ([id number]) 26591 EST. PATIENT, LEVEL IV Diagnosis: Type 2 diabetes mellitus without complications[ICD10: E11.9] Diagnosis: Paroxysmal atrial fibrillation[ICD10: I48.0] Diagnosis: Essential (primary) hypertension[ICD10: I10] Clarice Elaine MD, [facility] [address] [place] [address] CPT-4: 9921 4 01/21/2018 ([id number]) 67577 EST. PATIENT, LEVEL III Diagnosis: Paroxysmal atrial fibrillation[ICD10: I48.0] Diagnosis: Other specified anemias[ICD10: D64.89] Clarice Bay MD, [facility] [address] [place] [address] CPT-4: 9921 3 12/04/2017 ([id number]) 13582 EST. PATIENT, LEVEL IV Diagnosis: Benign paroxysmal vertigo, bilateral[ICD10: H81.13] Diagnosis: Essential (primary) hypertension[ICD10: I10] Diagnosis: Other fatigue[ICD10: R53.83] Diagnosis: Other specified anemias[ICD10: D64.89] Diagnosis: Other allergic rhinitis[ICD10: J30.89] Socorro Bay MD, [facility] [address] [place] [address] CPT-4: 9921 4 11/13/2017 ([id number]) 72266 EST. PATIENT, LEVEL III Diagnosis: Mild intermittent asthma with (acute) exacerbation[ICD10: J45.21] Diagnosis: Cough[ICD10: R05] Socorro Elaine MD, [facility] [address] [place] [address] CPT-4: 10759 10/30/2017 ([id number]) 13348 EST. PATIENT, LEVEL IV Diagnosis: Gastro-esophageal reflux disease without esophagitis[ICD10: K21.9] Diagnosis: Type 2 diabetes mellitus without complications[ICD10: E11.9] Diagnosis: Other specified anemias[ICD10: D64.89] Diagnosis: Paroxysmal atrial fibrillation[ICD10: I48.0] Socorro Elaine MD, [facility] [address] [place] [address] CPT-4: 9921 4 09/20/2017 ([id number]) 92116 EST. PATIENT, LEVEL III Diagnosis: Essential (primary) hypertension[ICD10: I10] Clarice Elaine MD, [facility] [address] [place] [address] CPT-4: 9921 3 05/29/2017 ([id number]) 09260 EST. PATIENT, LEVEL III Diagnosis: Acute bronchitis due to other specified organisms[ICD10: J20.8] Diagnosis: Cough[ICD10: R05] Diagnosis: Other chest pain[ICD10: R07.89] Clarice sales MD, [facility] [address] [place] [address] CPT-4: 9921 3 05/14/2017 ([id number]) 68074 EST. PATIENT, LEVEL IV Diagnosis: Type 2 diabetes mellitus with hyperglycemia[ICD10: E11.65] Diagnosis: Essential (primary) hypertension[ICD10: I10] Diagnosis: Mild intermittent asthma with (acute) exacerbation[ICD10: J45.21] Clarice Elaine MD, [facility] [address] [place] [address] CPT-4: 42107 03/06/2017 ([id number]) 18902 EST. 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 PATIENT, LEVEL III Diagnosis: Mild intermittent asthma with (acute) exacerbation[ICD10: J45.21] Diagnosis: Gastro-esophageal reflux disease without esophagitis[ICD10: K21.9] Jayne Elaine MD, [facility] [address] [place] [address] CPT-4: 91705 10/12/2016 ([id number]) 60251 EST. PATIENT, LEVEL IV Diagnosis: Type 2 diabetes mellitus with hyperglycemia[ICD10: E11.65] Diagnosis: Essential (primary) hypertension[ICD10: I10] Diagnosis: Mild intermittent asthma with (acute) exacerbation[ICD10: J45.21] Clarice Elaine MD, [facility] [address] [place] [address] CPT-4: 73160 09/04/2016 20423 EST. PATIENT, LEVEL III Diagnosis: Pain in left ankle and joints of left foot[ICD10: M25.572] Diagnosis: Localized edema[ICD10: R60.0] Jayne Elaine MD, [facility] [address] [place] [address] CPT-4: 81051 05/30 ([id number]) 96928 EST. PATIENT, LEVEL III Diagnosis: Type 2 diabetes mellitus with hyperglycemia[ICD10: E11.65] Clarice Elaine MD, [facility] [address] [place] [address] CPT-4: 48163 05/01/2016 ([id number]) 09216 EST. PATIENT, LEVEL IV Diagnosis: Type 2 diabetes mellitus without complications[ICD10: E11.9] Diagnosis: Moderate persistent asthma, uncomplicated[ICD10: J45.40] Diagnosis: Paroxysmal atrial fibrillation[ICD10: I48.0] Clarice Elaine MD, [facility] [address] [place] [address] CPT-4: 9921 4 02/29/2016 ([id number]) 22931 EST. PATIENT, LEVEL IV Diagnosis: Paroxysmal atrial fibrillation[ICD10: I48.0] Diagnosis: Hypothyroidism, unspecified[ICD10: E03.9] Diagnosis: Type 2 diabetes mellitus without complications[ICD10: E11.9] Diagnosis: Essential (primary) hypertension[ICD10: I10] Diagnosis: Acute maxillary sinusitis, unspecified[ICD10: J01.00] Diagnosis: Moderate persistent asthma, uncomplicated[ICD10: J45.40] Clarice Elaine MD, [facility] [address] [place] [address] CPT-4: 19252 02/03/2016 ([id number]) 68289 EST. PATIENT, LEVEL IV Diagnosis: Type 2 diabetes mellitus without complications[ICD10: E11.9] Diagnosis: Hypothyroidism, unspecified[ICD10: E03.9] Diagnosis: Moderate persistent asthma, uncomplicated[ICD10: J45.40] Diagnosis: Essential (primary) hypertension[ICD10: I10] Clarice Elaine MD, [facility] [address] [place] [address] CPT-4: 9921 4 12/21/2015 ([id number]) 37203 EST. 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 PATIENT, LEVEL IV Diagnosis: Type 2 diabetes mellitus without complications[ICD10: E11.9] Diagnosis: Essential (primary) hypertension[ICD10: I10] Diagnosis: Hypothyroidism, unspecified[ICD10: E03.9] Clarice Elaine MD, [facility] [address] [place] [address] CPT-4: 9921 4 06/22/2015 ([id number]) 37589 EST. PATIENT, LEVEL IV Diagnosis: ESSENTIAL HYPERTENSION[ICD9: 401.9] Diagnosis: DIABETES TYPE II[ICD9: 250.00] Clarice Elaine MD, [facility] [address] [place] [address] CPT-4: 52264 12/22 ([id number]) 53317 EST. PATIENT, LEVEL IV Diagnosis: ACUTE BRONCHITIS[ICD9: 466.0] Diagnosis: Acute asthma exacerbation[ICD9: 493.92] Diagnosis: ESSENTIAL HYPERTENSION[ICD9: 401.9] Diagnosis: DIABETES TYPE II[ICD9: 250.00] Clarice Elaine MD, [facility] [address] [place] [address] CPT-4: 34665 08/17 ([id number]) 23610 EST. PATIENT, LEVEL IV Diagnosis: DIABETES TYPE II[ICD9: 250.00] Diagnosis: ESSENTIAL HYPERTENSION[ICD9: 401.9] Diagnosis: Acute asthma exacerbation[ICD9: 493.92] Clarice Elaine MD, [facility] [address] [place] [address] CPT-4: 9921 4 04/13/2014 ([id number]) 20223 EST. PATIENT, LEVEL IV Diagnosis: DIABETES TYPE II[ICD9: 250.00] Diagnosis: ESSENTIAL HYPERTENSION[ICD9: 401.9] Diagnosis: HYPOTHYROIDISM[ICD9: 244.9] Clarice Elaine MD, [facility] [address] [place] [address] CPT-4: 69662 12/11 ([id number]) 83419 EST. PATIENT, LEVEL IV Diagnosis: DM W/O COMPLICATION TYPE II, UNCONTROLLED[ICD9: 250.02] Diagnosis: ESSENTIAL HYPERTENSION[ICD9: 401.9] Clarice sandhu MD, [facility] [address] [place] [address] CPT-4: 9921 4 11/10/2013 ([id number]) 16277 EST. PATIENT, LEVEL IV Diagnosis: DM W/O COMPLICATION TYPE II, UNCONTROLLED[SNOMED: 58249410] Diagnosis: ESSENTIAL HYPERTENSION[SNOMED: 12171947] Diagnosis: ACUTE BRONCHITIS[ICD9: 466.0] Clarice Elaine MD, [facility] [address] [place] [address] CPT-4: 76284 08/11 ([id number]) 50084 EST. PATIENT, LEVEL IV Diagnosis: DM W/O COMPLICATION TYPE II, UNCONTROLLED[SNOMED: 15954177] Diagnosis: ATRIAL FIBRILLATION[ICD9: 427.31] Diagnosis: ESSENTIAL HYPERTENSION[SNOMED: 66451469] Clarice Elaine MD, [facility] [address] [place] [address] CPT-4: 9921 4 05/12/2013 ([id number]) 14829 EST. PATIENT, LEVEL IV Diagnosis: DM W/O COMPLICATION TYPE II, UNCONTROLLED[SNOMED: 66551480] Diagnosis: ESSENTIAL HYPERTENSION[SNOMED: 71845260] Clarice Elaine MD, [facility] [address] [place] [address] CPT-4: 9921 4 01/06/2013 ([id number]) 23390 EST. PATIENT, LEVEL IV Diagnosis: DIABETES TYPE II[SNOMED: 700317021] Diagnosis: ESSENTIAL HYPERTENSION[SNOMED: 60278685] Diagnosis: Acute asthma exacerbation[ICD9: 493.92] Diagnosis: Fatigue[ICD9: 780.79] Clarice Elaine MD, [facility] [address] [place] [address] CPT-4: 19345 10/07/2012 ([id number]) 29224 EST. PATIENT, LEVEL IV Diagnosis: DM W/O COMPLICATION TYPE II, UNCONTROLLED[SNOMED: 10116737] Diagnosis: Lump of breast, right[ICD9: 611.72] Diagnosis: Lump on neck[ICD9: 784.2] Clarice Elaine MD, [facility] [address] [place] [address] CPT-4: 81949 09/11/2012 ([id number]) 16725 EST. PATIENT, LEVEL IV Diagnosis: ESSENTIAL HYPERTENSION[SNOMED: 41042546] Diagnosis: Atrial fibrillation[ICD9: 427.31] Diagnosis: Fatigue[ICD9: 780.79] Diagnosis: Encounter for monitoring digoxin therapy[ICD9: V58.83] Clarice Elaine MD, [facility] [address] [place] [address] CPT-4: 87801 07/15/2012 ([id number]) 85443 EST. PATIENT, LEVEL IV Diagnosis: DIABETES TYPE II[SNOMED: 242997950] Diagnosis: ESSENTIAL HYPERTENSION[SNOMED: 07954418] Clarice Elaine MD, [facility] [address] [place] [address] CPT-4: 9921 4 05/02/2012 ([id number]) 02086 EST. PATIENT, LEVEL IV Diagnosis: DM W/O COMPLICATION TYPE II, UNCONTROLLED[SNOMED: 02388777] Diagnosis: ESSENTIAL HYPERTENSION[SNOMED: 50758771] Diagnosis: HYPERLIPIDEMIA[ICD9: 272.4] Clarice Elaine MD, [facility] [address] [place] [address] CPT-4: 90976 03/28 ([id number]) 60222 EST. PATIENT, LEVEL IV Diagnosis: DM W/O COMPLICATION TYPE II, UNCONTROLLED[SNOMED: 24677800] Diagnosis: ESSENTIAL HYPERTENSION[SNOMED: 58282703] Clarice Elaine MD, [facility] [address] [place] [address] CPT-4: 9921 4 11/27/2011 ([id number]) 72538 EST. PATIENT, LEVEL III Diagnosis: ESSENTIAL HYPERTENSION[SNOMED: 27421199] Diagnosis: ANEMIA[ICD9: 285.9] Diagnosis: Gastritis[ICD9: 535.50] Clarice Elaine MD, [facility] [address] [place] [address] CPT-4: 87488 10/25/2011 ([id number]) 45708 EST. PATIENT, LEVEL III Diagnosis: Anemia associated with acute blood loss[ICD9: 285.1] Diagnosis: Gastritis, acute with hemorrhage[ICD9: 535.01] Clarice Elaine MD, [facility] [address] [place] [address] CPT-4: 9921 3 10/11/2011 ([id number]) 84532 EST. PATIENT, LEVEL IV Diagnosis: Hematochezia[ICD9: 578.1] Diagnosis: ENCNTR LONG-RX USE NEC[ICD9: V58.69] Diagnosis: Abdominal pain[ICD9: 789.00] Clarice Elaine MD, [facility] [address] [place] [address] CPT-4: 59192 10/03 ([id number]) 46647 EST. PATIENT, LEVEL IV Diagnosis: DIABETES TYPE II[SNOMED: 867020294] Diagnosis: ESSENTIAL HYPERTENSION[SNOMED: 58135937] Diagnosis: Coronary artery disease[ICD9: 414.00] Clarice Elaine MD, [facility] [address] [place] [address] CPT-4: 9921 4 09/25/2011 ([id number]) 58943 EST. PATIENT, LEVEL IV Diagnosis: Muscle spasm[ICD9: 728.85] Diagnosis: Arthralgia[ICD9: 719.40] Diagnosis: ESSENTIAL HYPERTENSION[SNOMED: 08404961] Clarice Elaine MD, [facility] [address] [place] [address] CPT-4: 9921 4 07/31/2011 90996 EST. PATIENT, LEVEL III Diagnosis: ACUTE SINUSITIS[ICD9: 461.9] Diagnosis: Cervicalgia[ICD9: 723.1] Socorro Elaine MD, [facility] [address] [place] [address] CPT-4: 14195 05/22/2011 60560 EST. PATIENT, LEVEL IV Diagnosis: HYPERLIPIDEMIA[ICD9: 272.4] Diagnosis: HYPOTHYROIDISM[ICD9: 244.9] Diagnosis: DM W/O COMPLICATION TYPE II, UNCONTROLLED[SNOMED: 58336766] Clarice Elaine MD, [facility] [address] [place] [address] CPT-4: 49135 05/05/2011 Plan of Care Planned Activity Notes Codes Status Date Patient Education: Patient Medication Summary Completed 10/23/2022 Visit Plan: Diabetes Mellitus - uncontro lled - will have pt adjust medication as follows: start with 0.25mg of the Ozempic WEEKLY x 2 WEEKS - then increase up to the 0.5mg dose WEEKLY - this is the RX that was sent to the pharmacy I will have you stop the jardiance. Hypothyroidism - on the thyroid medication - you will change it to only taking thyroid medication on Sunday, Sunday, Sunday and Sunday - NO medication on tuesdays and and saturdays. Atrial fibrillation - chronic - continue with current medications - pt well managed on dose of amiodarone and blood thinners. 10/17/2022 Appointment: Clarice Elaine WPtel: [phone] [place] (15 min) Moderate 10/17/2022 Patient Education: Patient Medication Summary Completed 10/17/2022 Patient Education: Diabetes Completed 10/17/2022 Patient Education: Hypertension Completed 10/17/2022 Visit Plan: Diabetes Mellitus - uncontro lled - will have pt adjust medication as follows: let us know how your blood glucose is after the next 3 weeks while taking the jardiance and not taking the victoza Hypothyroidism -symptoms stable on current management - no change in current medicaitons - repeat labs in 4 months. Atrial fibrillation - chronic - continue with current medications - pt well managed on dose of amiodarone and blood thinners. 06/20/2022 Appointment: Clarice Elaine WPtel: [phone] [place] (15 min) Moderate 06/20/2022 Patient Education: Patient Medication Summary Completed 06/20/2022 Patient Education: Hypertension Completed 06/20/2022 Patient Education: Diabetes Completed 06/20/2022 Visit Plan: flu and covid swab GI upset - call bean to let her know about covid status and pantoprazole started as well as her symptoms pt advised to hold xarelto sunday morning due to her gi symptoms 06/05/2022 Appointment: Clarice Elaine WPtel: [phone] [facility] Appointment 06/05/2022 Patient Education: Patient Medication Summary Completed 06/05/2022 Patient Education: Hypertension Completed 06/05/2022 Visit Plan: Pancreatic cysts - Dr Ba on discussed with patient in the office -repeat MRI in 1 year to monitor- patient states she will not do any treatment for cancer if they find it Cyst/abscess of buttock - refer to Dr Galvan for removal - continue bactrim Rash - left upper chest rash -right ankle - rx for triamcinolone cream - call if worsens 02/23/2022 Appointment: Socorro Salmeron WPtel: [address] [phone] [place] (30 min) Complex 02/23/2022 Patient Education: Patient Medication Summary Completed 02/23/2022 Visit Plan: Cellulitis - left buttock -r x for oral antibiotics to take as directed, return to clinic for recheck, call for acute change in symptoms, worsening redness, warmth, discharge. 02/20/2022 Appointment: [phone] [place] (30 min) Complex 02/20/2022 Patient Education: Patient Medication Summary Completed 02/20/2022 Patient Education: Patient Medication Summary Completed 02/07/2022 Visit Plan: Diabetes Mellitus - uncontro lled - will have pt adjust medication as follows: increase the victoza to 1.8 Hypothyroidism - over supplemented advised pt as follows: change the synthroid to one tablet m/w/f/sat/sun and no tabs tue/thur, repeat labs in 4 months. Hx of abnormal cystic lesion on pancreas - pt to have MRI of pancreas - this will be ordered at the hospital. Constipation - chronic - Advised pt that we will discuss her amiodarone with dr. aguilar - pt feels it is causing constipation. Atrial fibrillation - chronic - continue with current medications - advised pt that we will contact her about the recommendations by Dr. Aguilar about the amiodarone. discussed with Dr. Aguilar and he would like to have her go down to 100mg daily 02/06/2022 Appointment: [phone] [place] (30 min) Complex 02/06/2022 Patient Education: Patient Medication Summary Completed 02/06/2022 Patient Education: Hypertension Completed 02/06/2022 Patient Education: Patient Medication Summary Completed 01/04/2022 Appointment: Socorro Salmeron [phone] [phone] [place] (15 min) Moderate 12/12/2021 Visit Plan: Hypertension - well controll ed - continue with current medications, continue with [...] readings are starting to become less controlled. Atrial Fibrillation - pt on chronic anticoagulation and is currently rate controlled. The pt is to have labs done as appropriate to monitor medication levels and is to report if they start to feel as if their heart rate is becoming uncontrolled. Asthma - chronic - continue with current medication re gimen - monitor symptoms. 08/08/2021 Patient Education: Patient Medication Summary Completed 08/08/2021 Patient Education: Diabetes Completed 08/08/2021 Appointment: Socorro Salmeron [facility]: [address] [place] [phone] (30 min) Complex 08/01/2021 Visit Plan: Hypertension - well controll ed - continue with current medications, continue with [...] readings are starting to become less controlled. Atrial Fibrillation - pt on chronic anticoagulation and is currently rate controlled. The pt is to have labs done as appropriate to monitor medication levels and is to report if they start to feel as if their heart rate is becoming uncontrolled. - Pt on xarelto for anticoag. - call placed to dr. desire sen's office - they will refill her xarelto. Hyperlipidemia - pt has been counseled about appropriate diet, exercise, and need for low fat food choices. I have discussed the need for the patient to take medications as prescribed. If the patient has negative side effects from the medication, they are to CALL the office and not abruptly discontinue the medication without discussion with a practitioner in the office. We will check labs in 3-6 months for follow up on the patient's chronic medical problem and to assure normal liver response to medications. Asthma - chronic - continue with current medication regimen - monitor symptoms. Pt on advair HFA high dose flu shot today in clinic 04/05/2021 Appointment: Clarice Elaine [facility]el[phone] [phone] (15 min) Moderate 04/05/2021 Patient Education: Patient Medication Summary Completed 04/05/2021 Patient Education: Diabetes Completed 04/05/2021 Visit Plan: Hypertension - well controll ed - continue with current medications, continue with [...] readings are starting to become less controlled. Atrial Fibrillation - pt on chronic anticoagulation and is currently rate controlled. The pt is to have labs done as appropriate to monitor medication levels and is to report if they start to feel as if their heart rate is becoming uncontrolled. Asthma - chronic - continue with current medication re gimen - monitor symptoms. 11/30/2020 Appointment: Clarice Elaine [facility]Ptel[facility] [phone] [phone] [place] (15 min) Moderate 11/30/2020 Patient Education: Patient Medication Summary Completed 11/30/2020 Patient Education: Diabetes Completed 11/30/2020 Visit Plan: Hypertension - well controll ed - continue with current medications, continue with [...] readings are starting to become less controlled. Atrial Fibrillation - pt on chronic anticoagulation and is currently rate controlled. The pt is to have labs done as appropriate to monitor medication levels and is to report if they start to feel as if their heart rate is becoming uncontrolled. - Pt on xarelto for anticoag. Asthma - chronic - michaelle nue with current medication regimen - monitor symptoms. Pt on advair HFA 08/05/2020 Appointment: Clarice Elaine WPtel: [phone] [phone] (15 min) Moderate 08/05/2020 Patient Education: Patient Medication Summary Completed 08/05/2020 Patient Education: Diabetes Completed 08/05/2020 Visit Plan: flu shot given today in clin ic Hypertension - well controlled - continue with [...] readings are starting to become less controlled. Atrial Fibrillation - pt on chronic anticoagulation and is currently rate controlled. The pt is to have labs done as appropriate to monitor medication levels and is to report if they start to feel as if their heart rate is becoming uncontrolled. Asthma - chronic - continue with current medication regimen - monitor symptoms. 04/07/2020 Appointment: Clarice Elaine WPtel: [phone] [phone] (15 min) Moderate 04/07/2020 Patient Education: Patient Medication Summary Completed 04/07/2020 Patient Education: Diabetes Completed 04/07/2020 Visit Plan: Diabetes Mellitus - controll ed - per recent FSBS reports. I have [...] readings are starting to become less controlled. 02/12/2020 Appointment: Thompson Clarice WPtel: [phone] [facility] [place] [address] 02/12/2020 Patient Education: Patient Medication Summary Completed 02/12/2020 Patient Education: Diabetes Completed 02/12/2020 Patient Education: Hypertension Completed 02/12/2020 Visit Plan: Diabetes Mellitus - controll ed - per recent FSBS reports. I have [...] change in blood pressure readings at home. 12/09/2019 Appointment: Clarice Elaine WPtel: [phone] [phone] [facility] 12/09/2019 Patient Education: Patient Medication Summary Completed 12/09/2019 Patient Education: Diabetes Completed 12/09/2019 Visit Plan: Hypertension - well controll ed - continue with current medications, continue with [...] readings are starting to become less controlled. Atrial Fibrillation - pt on chronic anticoagulation and is currently rate controlled. The pt is to have labs done as appropriate to monitor medication levels and is to report if they start to feel as if their heart rate is becoming uncontrolled. 09/09/2019 Appointment: Clarice Elaine [facility]Ptel[facility] [phone] [phone] (15 min) Moderate 09/09/2019 Patient Education: Patient Medication Summary Completed 09/09/2019 Patient Education: Diabetes Completed 09/09/2019 Patient Education: Patient Medication Summary Completed 08/18/2019 Visit Plan: Hypertension - not optimally controlled today- pt reports improved blood pressures at home pt is to continue with current medications, continue with no added salt diet. Pt has been encouraged to exercise daily. The pt has been advised to call the office if there are any acute concerns about change in blood pressure readings at home. Diabetes Mellitus - improved control based on last two Hgba1c's - with level going from 8.8 to 7.9 - continue with current medications - cutting back on Carbohydrates and increase activity. I have recommended for the patient to have follow up labs prior to the next office visit. The patient has been instructed to continue with current medications as previously directed, continue with regular FSBS monitoring to assure continued control of diabetes. Pt to call for any acute concerns, complaints, or if the blood glucose readings are starting to become less controlled. Asthma - chronic problem for this patient. We have reviewed chronic treatment strategy, symptom control, and plans for acute exacerbation. No changes today to the current treatment plan as the patient is stable, monitor for acute changes Influenza vaccine today in clinic 05/13/2019 Appointment: [phone] (15 min) Moderate 05/13/2019 Patient Education: Patient Medication Summary Completed 05/13/2019 Patient Education: Diabetes Completed 05/13/2019 Patient Education: Patient Medication Summary Completed 04/10/2019 Care Plan: A1C HPLC LOINC : 66933-2 Pending 04/10/2019 Care Plan: TSH Pending 04/10/2019 Care Plan: FREE T4 Pending 9 Visit Plan: Hypertension - well controll ed - continue with current medications, continue with no added salt diet. Pt has been encouraged to exercise daily. The pt has been advised to call the office if there are any acute concerns about change in blood pressure readings at home. Diabetes Mellitus - improved control with dietary restriction- per recent FSBS reports. I have recommended [...] readings are starting to become less controlled. 02/05/2019 Appointment: [facility]el[phone] (15 min) Moderate 02/05/2019 Patient Education: Patient Medication Summary Completed 02/05/2019 Patient Education: Diabetes Completed 02/05/2019 Visit Plan: Hypertension - well controll ed - continue with current medications, continue with no added salt diet. Pt has been encouraged to exercise daily. The pt has been advised to call the office if there are any acute concerns about change in blood pressure readings at home. Asthma Exacerbation with Bronchitis - Asthma is a chronic problem for [...] patient is stable, monitor for acute changes. DM - discussed with pt - she stated, initially, that she did not want to talk about this today - however after we were done with her appointment, she stated "what are we going to do about my blood glucose?" - I have instructed Thalia - that she needs to stop eating out, eat smaller portions, and we will talk about insulin at her appt in 2 weeks. She is to bring in a report of her FSBS so that we can see what times she is having the biggest issues - to determine if I will do meal-time or long acting insulin. 01/21/2019 Appointment: [phone] (15 min) Moderate 01/21/2019 Patient Education: Patient Medication Summary Completed 01/21/2019 Patient Education: Diabetes Completed 01/21/2019 Referral: [facility] Patient informed. Referral info faxed. 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 [...] are starting to become less controlled. 09/23/2018 Appointment: [facility]el[phone] [phone] (15 min) Moderate 09/23/2018 Patient Education: Patient Medication Summary Completed 09/23/2018 Patient Education: Diabetes Completed 09/23/2018 Care Plan: Referral Order SNOMED-CT : [id number] Pending 09/23/2018 Appointment: [facility]el[phone] [phone] (15 min) Moderate 05/27/2018 Patient Education: Patient Medication Summary Completed 05/27/2018 Patient Education: Diabetes Completed 05/27/2018 Visit Plan: Diabetes Mellitus - controll ed - per recent FSBS reports. I have [...] becoming uncontrolled. 01/21/2018 Appointment: Clarice Elaine WPtel: [facility] [address] (15 min) Moderate 01/21/2018 Patient Education: [...] venofer IV. 12/04/2017 Appointment: Clarice Elaine WPtel: [facility] [place] [address] (15 min) Moderate 12/04/2017 Patient Education: Patient Medication Summary Completed 12/04/2017 Care Plan: Iron Pending 12/04/2017 Care Plan: Iron And Tibc Pending Appointment: Lab Draw 11/28/2017 Patient Education: Patient Medication Summary Completed 11/28/2017 Patient Education: Patient Medication Summary Completed 11/22/2017 Care Plan: Iron Pending 11/22/2017 Visit Plan: BPPV - Benign Paroxysmal Pos itional Vertigo - discussed diagnosis with the patient, offered the pt the appropriate additional information in hand- out. Pt instructed in home exercises to help alleviate and prevent future recurrent episodes of vertigo. Pt informed that if symptoms worsen, call the office for further instructions/medication interventions. HTN-elevated today- monitor at home Osjtnv-jugpkvh-dogmc labs Allergies-add flonase nasal spray 11/13/2017 Appointment: Socorro Salmeron WPtel: [phone] (30 min) Complex 11/13/2017 Patient Education: [...] acute changes. 10/30/2017 Appointment: Socorro Salmeron WPtel: [phone] (30 min) Complex 10/30/2017 Patient Education: Patient Medication Summary Completed 10/30/2017 Appointment: Clarice Elaine WPtel: [address] [place], [place] [phone] (15 min) Moderate 09/25/2017 Visit Plan: GERD-continue protonix and c arafate-low spice diet -call if symptoms uncontrolled Melana-history of anemia-check Hgb-stay off aspirin per Dr Aguilar Afib-now in NSR -continue xarelto-follow up with Dr Aguilar as scheduled DM- check Hgb A1C 09/20/2017 Appointment: Socorro Salmeron WPtel: [phone] (30 min) Complex 09/20/2017 Patient Education: Patient Medication Summary Completed 09/20/2017 Appointment: Clarice Elaine WPtel: [phone] (15 min) Moderate 06/26/2017 Visit Plan: Hypertension - well controll ed - continue with current medications, continue with [...] removal process. 05/29/2017 Appointment: Clarice Elaine WPtel: [phone] [phone] (15 min) Moderate 05/29/2017 Patient Education: Patient Medication Summary Completed 05/29/2017 Patient Education: Hypertension Completed 05/29/2017 Visit Plan: Bronchitis - acute case of b ronchitis identified. Pt has been given antibiotics, breathing treatments as appropriate, and pt has been instructed to call if symptoms are not improved, or if symptoms acutely worsen. Chest pain - chest wall - toradol shot hospira [id number] november 2018 05/14/2017 Appointment: [facility]el[phone] (15 min) Moderate 05/14/2017 Patient Education: Patient Medication Summary Completed 05/14/2017 Appointment: Injection 04/30/2017 Patient Education: Patient Medication Summary Completed 04/30/2017 Visit Plan: Diabetes Mellitus - Uncontro lled - per recent FSBS reports. I have [...] today. 03/06/2017 Appointment: Clarice Elaine WPtel: [phone] [phone] [place] (15 min) Moderate 03/06/2017 Patient Education: Patient Medication Summary Completed 03/06/2017 Patient Education: Hypertension Completed 03/06/2017 Appointment: Clarice Elaine WPtel: [phone] [phone] [place] (15 min) Moderate 12/05/2016 Visit Plan: Hypertension - well controll ed - continue with current medications, continue with no added salt diet. Pt has been encouraged to exercise daily. The pt has been advised to call the office if there are any acute concerns about change in blood pressure readings at home. Esophagitis - RX for pantoprazole and carafate given to patient - continue with current treatment. 11/01/2016 Appointment: Clarice Elaine WPtel: [phone] [phone] [place] (15 min) Moderate 11/01/2016 Patient Education: Patient Medication Summary Completed 11/01/2016 Visit Plan: ADMIT FROM CLINIC TO [facility] - PT IS ACUTELY ILL, REQUIRES HOSPITALIZATION. THE PATIENT HAS BEEN EVALUATED IN CLINIC AND THIS STANDS THE HOSPITAL HISTORY AND PHYSICAL EXAMINATION. THE PATIENT HAS BEEN SENT TO THE HOSPITAL WITH WRITTEN ORDERS FOR TREATMENT AND EVALUATION OF THE ACUTE ILLNESS. 10/18/2016 Appointment: Clarice Elaine WPtel: [phone] [phone] [place] (15 min) Moderate 10/18/2016 Patient Education: Patient Medication Summary Completed 10/18/2016 Visit Plan: Esophageal Reflux - the karey ent has been counseled against excessive intake of [...] changes 10/12/2016 Appointment: Jay[phone] [place] (30 min) Complex 10/12/2016 Patient Education: Patient Medication Summary Completed 10/12/2016 Patient Education: Obesity Completed 0 10/12/2016 Visit Plan: Diabetes Mellitus - Uncontro lled - per recent FSBS reports. I have [...] at home. 09/04/2016 Appointment: [facility]Ptel[phone] [place] (15 min) Moderate 09/04/2016 Patient Education: Patient Medication Summary Completed 09/04/2016 Patient Education: Obesity Completed 0 09/04/2016 Patient Education: Hypertension Completed 09/04/2016 Appointment: Jayne Ragland [facility]el[phone] [facility] [facility] - Annual Wellness Visit 07/2015 Visit Plan: Edema - pt has been [...] not improve. 05/30/2016 Appointment: (15 min) Moderate 6 Patient Education: Patient Medication Summary Completed 05/30/2016 Visit Plan: Diabetes Mellitus - Uncontro lled - per recent FSBS reports. I have [...] greater blood glucose control. 05/01/2016 Appointment: Clarice Ealine WPtel: [phone] [phone] (15 min) Moderate 05/01/2016 Patient Education: Patient Medication Summary Completed 05/01/2016 Visit Plan: Diabetes Mellitus - controll ed - per recent FSBS reports. I have [...] changes 02/29/2016 Appointment: [facility]Ptel[phone] Surgical Procedure 02/29/2016 Patient Education: Patient Medication Summary Completed 02/29/2016 Visit Plan: Hypertension - well controll ed - continue with current medications, continue with [...] Summary Completed 02/03/2016 Patient Education: Obesity Completed 0 02/03/2016 Patient Education: Hypertension Completed 02/03/2016 Visit Plan: Diabetes Mellitus - controll ed - per recent FSBS reports. I have [...] readings. 12/21/2015 Appointment: Clarice Elaine WPtel: [address] [place], [place] [phone] (15 min) Moderate 12/21/2015 Patient Education: Patient Medication Summary Completed 12/21/2015 Patient Education: Obesity Completed 0 12/21/2015 Patient Education: Hypertension Completed 12/21/2015 Appointment: [...] is stable, monitor for acute changes. kenalog kristen today 10/25/2015 Appointment: Clarice Elaine WPtel: [phone] [phone] (15 min) Moderate 10/25/2015 Patient Education: Patient [...] ILLNESS. 10/19/2015 Appointment: Socorro Salmeron WPtel: [phone] [phone] (30 min) Complex 10/19/2015 Patient Education: Patient Medication Summary Completed 10/19/2015 Visit Plan: Diabetes Mellitus - controll ed - per recent FSBS reports. I have [...] Completed 06/22/2015 Visit Plan: Hypertension - well controll ed - continue with current medications, continue with [...] Visit Plan: Bronchitis - acute case of b ronchitis identified. Pt has been given antibiotics, breathing [...] at home. 08/17/2014 Appointment: [facility]Ptel[phone] Follow up 08/17/2014 Patient Education: Patient Medication Summary Completed 08/17/2014 Patient Education: Hypertension Completed 08/17/2014 Visit Plan: Diabetes Mellitus - controll ed - per recent FSBS reports. I have [...] albuterol. 04/13/2014 Appointment: Clar[facility]Ptel[phone] Follow up 04/13/2014 Patient Education: Patient Medication Summary Completed 04/13/2014 Patient Education: Hypertension Completed 04/13/2014 Visit Plan: Hypertension - well controll ed - continue with current medications, continue with [...] control. 12/11/2013 Appointment: Clarice Elaine [facility]Ptel[phone] [phone] [place] Follow up 12/11/2013 Patient Education: Patient Medication Summary Completed 12/11/2013 Patient Education: Hypertension Completed 12/11/2013 Visit Plan: Diabetes Mellitus - Uncontro lled - per recent FSBS reports. I have [...] for greater blood glucose control. take the glipiz yamila 5mg 1/2 pill twice daily. if the [...] concerns. 11/10/2013 Appointment: Clar[facility] Elaine [facility]Ptel[phone] [place] Follow up 11/10/2013 Patient Education: Patient Medication Summary Completed 11/10/2013 Patient Education: Hypertension Completed 11/10/2013 Appointment: Clar[facility]Ptel[phone] [place] Lab Draw 11/04/2013 Patient Education: Patient Medication Summary Completed 11/04/2013 Patient Education: Hypertension Completed 11/04/2013 Visit Plan: Hypertension - well controll ed on home blood pressure checks - continue [...] pharmacy. 08/11/2013 Appointment: Clarice Elaine WPtel: [phone] [phone] Follow up 08/11/2013 Patient Education: Patient Medication Summary Completed 08/11/2013 Patient Education: Hypertension Completed 08/11/2013 Appointment: Clarice Elaine WPtel: [phone] [phone] Follow up 05/12/2013 Patient Education: Patient Medication Summary Completed 05/12/2013 Patient Education: Hypertension Completed 05/12/2013 Visit Plan: Hypertension - well controll ed - continue with current medications, continue with [...] control. 01/06/2013 Appointment: Clarice Elaine WPtel: [phone] [phone] Follow up 01/06/2013 Patient Education: Patient Medication Summary Completed 01/06/2013 Patient Education: Hypertension Completed 01/06/2013 Visit Plan: Diabetes Mellitus - controll ed - per recent FSBS reports. I have [...] today. 10/07/2012 Appointment: Clar[facility]Ptel[phone] Follow up 10/07/2012 Patient Education: Patient Medication Summary Completed 10/07/2012 Patient Education: Hypertension Completed 10/07/2012 Visit Plan: Diabetes Mellitus - Uncontro lled - per recent FSBS reports. I have [...] ultrasound 09/11/2012 Appointment: Clarice Elaine WPtel: [phone] [place] Follow up 09/11/2012 Patient Education: Patient [...] level. 07/15/2012 Appointment: Clar[facility]Ptel[phone] Follow up 07/15/2012 Patient Education: Patient Medication Summary Completed 07/15/2012 Patient Education: Hypertension Completed 07/15/2012 Visit Plan: Diabetes Mellitus -fairly we ll controlled - per recent FSBS reports. I [...] Plavix. 05/02/2012 Appointment: Clarice Elaine [facility]Ptel[phone] Follow up 05/02/2012 Patient Education: Patient Medication Summary Completed 05/02/2012 Patient Education: High Blood Pressure: Essential Hypertension Completed 05/02/2012 Visit Plan: Diabetes Mellitus - Uncontro lled - per recent FSBS reports. I have [...] COMPELTELY. 03/28/2012 Appointment: Clarice Elaine [facility]Ptel[phone] Follow up 03/28/2012 Patient Education: Patient Medication Summary Completed 03/28/2012 Patient Education: High Blood Pressure: Essential Hypertension Completed 03/28/2012 Patient Education: Patient Medication Summary Completed 03/26/2012 Patient Education: High Blood Pressure: Essential Hypertension Completed 03/26/2012 Patient Education: Patient Medication Summary Completed 01/08/2012 Patient Education: High Blood Pressure: Essential Hypertension Completed 01/08/2012 Visit Plan: Diabetes Mellitus - Uncontro lled - per recent FSBS reports. I have [...] for greater blood glucose control. Increase the me tformin to 500 mg twice daily. Hypertension - well controlled - continue with current medications, continue with no added salt diet. Pt has been encouraged to exercise daily. The pt has been advised to call the office if there are any acute concerns about change in blood pressure readings at home. 11/27/2011 Appointment: Clarice Elaine WPtel: [address] [place], [place] [phone] Follow up 11/27/2011 Patient Education: Patient Medication Summary Completed 11/27/2011 Patient Education: High Blood Pressure: Essential Hypertension Completed 11/27/2011 Patient Education: Patient Medication Summary Completed 11/06/2011 Appointment: Clarice Elaine WPtel: [address] [place], [place] [phone] [place] Other 11/03/2011 Appointment: Clarice Elaine WPtel: [address] [place], [place] [phone] [place] Other 11/02/2011 Appointment: Clarice Elaine WPtel: [address] [place], [place] [phone] [place] Lab Draw 10/31/2011 Visit Plan: Hypertension - well controll ed - continue with current medications, continue with [...] times daily. 10/25/2011 Appointment: Clarice Elaine WPtel: [address] [place] [address] Follow up 10/25/2011 Patient Education: Patient Medication Summary Completed 10/25/2011 Patient Education: High Blood Pressure: Essential Hypertension Completed 10/25/2011 Appointment: Clarice Elaine WPtel: [address] [place] [address] Lab Draw 10/16/2011 Patient Education: Patient Medication Summary Completed 10/16/2011 Visit Plan: GI bleed secondary to the me dication causing irritation to the stomach and it led to EROSIVE GASTRITIS.. The protonix is supposed to decrease the amount of acid in the stomach and preventing the medication and the acid from causing a hole in the stomach and further bleeding. Anemia- improved, the hemoglobin has improved from 10.6 to 11.4 10/11/2011 Appointment: Clarice Elaine WPtel: [address] [place] [address] Other 10/11/2011 Patient Education: Patient Medication Summary Completed 10/11/2011 Appointment: Clarice Elaine WPtel: [address] [place], [place] [phone] Other 10/10/2011 Visit Plan: Abdominal pain and Hematoche brooke - I have discussed this case with [...] remained stable. 10/04/2011 Appointment: Clarice Elaine WPtel: [facility] [place] [address] Follow up 10/04/2011 Patient Education: Patient Medication Summary Completed 10/04/2011 Visit Plan: DM - uncontrolled due to nee d to stop the metformin during hospitalization. I [...] not improve. 09/25/2011 Appointment: Clarice Elaine WPtel: [address] [place] [address] Other 09/25/2011 Patient Education: Patient Medication Summary Completed 09/25/2011 Patient Education: High Blood Pressure: Essential Hypertension Completed 09/25/2011 Appointment: Clarice Elaine WPtel: [address] [place] [address] Other 07/31/2011 Patient Education: Patient Medication Summary Completed 07/31/2011 Patient Education: High Blood Pressure: Essential Hypertension Completed 07/31/2011 Visit Plan: Sinusitis - Pt has acute inf ection - pain in face, maxillary region, Pt [...] on use. 05/22/2011 Appointment: Socorro Salmeron WPtel: [facility] [place] [phone] Other 05/22/2011 Patient Education: Patient Medication Summary [...] dose increased. 05/05/2011 Appointment: Clarice Elaine WPtel: [address] [place], [place] [phone] [place] [address] Other 05/05/2011 Patient Education: Patient Medication Summary Completed 05/05/2011 Patient Education: High Cholesterol Compl eted 05/05/2011 Appointment: Clarice Elaine WPtel: [address] [place] [phone] Other 05/04/2011 Appointment: Clarice Elaine WPtel: [address] [place], [place] [phone] [address] Lab Draw 05/02/2011 Patient Education: Patient Medication Summary Completed 05/02/2011 Patient Education: High Blood Pressure: Essential Hypertension Completed 05/02/2011 Referral: [facility] Referral Appointment Req uested Instructions Comment Date start with 0.25mg of the Ozempic WEEKLY x 2 WEEKS - then increase up to the 0.5mg dose WEEKLY - this is the RX that was sent to the pharmacy I will have you stop the jardiance. on the thyroid medication - you will change it to only taking thyroid medication on Sunday, Sunday, Sunday and Sunday - NO medication on tuesdays and and saturdays. . Diabetes Mellitus - uncontrolled - rosalio l have pt adjust medication as follows: start with 0.25mg of the Ozempic WEEKLY x 2 WEEKS - then increase up to the 0.5mg dose WEEKLY - this is the RX that was sent to the pharmacy I will have you stop the jardiance. Hypothyroidism - on the thyroid medication - you will change it to only taking thyroid medication on Sunday, Sunday, Sunday and Sunday - NO medication on tuesdays and and saturdays. Atrial fibrillation - chronic - continue with current medications - pt well managed on dose of amiodarone and blood thinners. 10/17/2022 let us know how your blood glucose is af ter the next 3 weeks while taking the jardiance and not taking the victoza . Diabetes Mellitus - uncontrolled - rosalio l have pt adjust medication as follows: let us know how your blood glucose is after the next 3 weeks while taking the jardiance and not taking the victoza Hypothyroidism -symptoms stable on current management - no change in current medicaitons - repeat labs in 4 months. Atrial fibrillation - chronic - continue with current medications - pt well managed on dose of amiodarone and blood thinners. 06/20/2022 . flu and covid swab GI upset - call bean to let her know about covid status and pantoprazole started as well as her symptoms pt advised to hold xarelto sunday morning due to her gi symptoms 06/05/2022 DR GALVAN FOR REMOVAL OF CYST ON BUTTOCK TRIAMCINOLONE - RASH CHEST AND LEFT ANKLE . Pancreatic cysts - Dr Elaine discuss ed with patient in the office -repeat MRI in 1 year to monitor- patient states she will not do any treatment for cancer if they find it Cyst/abscess of buttock - refer to Dr Galvan for removal - continue bactrim Rash - left upper chest rash -right ankle - rx for triamcinolone cream - call if worsens 02/23/2022 . Cellulitis - left buttock -rx for oral antibiotics to take as directed, return to clinic for recheck, call for acute change in symptoms, worsening redness, warmth, discharge. 02/20/2022 . Diabetes Mellitus - uncontrolled - rosalio l have pt adjust medication as follows: increase the victoza to 1.8 Hypothyroidism - over supplemented advised pt as follows: change the synthroid to one tablet m/w/f/sat/sun and no tabs sun/, repeat labs in 4 months. Hx of abnormal cystic lesion on pancreas - pt to have MRI of pancreas - this will be ordered at the hospital. Constipation - chronic - Advised pt that we will discuss her amiodarone with dr. aguilar - pt feels it is causing constipation. Atrial fibrillation - chronic - continue with current medications - advised pt that we will contact her about the recommendations by Dr. Aguilar about the amiodarone. discussed with Dr. Aguilar and he would like to have her go down to 100mg daily 02/06/2022 . Hypertension - well controlled - continue [...] readings are starting to become less controlled. Atrial Fibrillation - pt on chronic anticoagulation and is currently rate controlled. The pt is to have labs done as appropriate to monitor medication levels and is to report if they start to feel as if their heart rate is becoming uncontrolled. Asthma - chronic - continue with current medication regimen - monitor symptoms. 08/08/2021 . Hypertension - well controlled - continue [...] readings are starting to become less controlled. Atrial Fibrillation - pt on chronic anticoagulation and is currently rate controlled. The pt is to have labs done as appropriate to monitor medication levels and is to report if they start to feel as if their heart rate is becoming uncontrolled. - Pt on xarelto for anticoag. - call placed to dr. aguilar's office - they will refill her xarelto. Hyperlipidemia - pt has been counseled about appropriate diet, exercise, and need for low fat food choices. I have discussed the need for the patient to take medications as prescribed. If the patient has negative side effects from the medication, they are to CALL the office and not abruptly discontinue the medication without discussion with a practitioner in the office. We will check labs in 3-6 months for follow up on the patient's chronic medical problem and to assure normal liver response to medications. Asthma - chronic - continue with current medication regimen - monitor symptoms. Pt on advair HFA high dose flu shot today in clinic 04/05/2021 . Hypertension - well controlled - continue [...] readings are starting to become less controlled. Atrial Fibrillation - pt on chronic anticoagulation and is currently rate controlled. The pt is to have labs done as appropriate to monitor medication levels and is to report if they start to feel as if their heart rate is becoming uncontrolled. Asthma - chronic - continue with current medication regimen - monitor symptoms. 11/30/2020 . Hypertension - well controlled - continue [...] readings are starting to become less controlled. Atrial Fibrillation - pt on chronic anticoagulation and is currently rate controlled. The pt is to have labs done as appropriate to monitor medication levels and is to report if they start to feel as if their heart rate is becoming uncontrolled. - Pt on xarelto for anticoag. Asthma - chronic - continue with current medication regimen - monitor symptoms. Pt on advair HFA 08/05/2020 . flu shot given today in clinic Hypertension - well controlled - continue with [...] readings are starting to become less controlled. Atrial Fibrillation - pt on chronic anticoagulation and is currently rate controlled. The pt is to have labs done as appropriate to monitor medication levels and is to report if they start to feel as if their heart rate is becoming uncontrolled. Asthma - chronic - continue with current medication regimen - monitor symptoms. 04/07/2020 . Diabetes Mellitus - controlled - per r ecent FSBS reports. I have recommended for the patient to have follow up labs prior to the next office visit. The patient has been instructed to continue with current medications as previously directed, continue with regular FSBS monitoring to assure continued control of diabetes. Pt to call for any acute concerns, complaints, or if the blood glucose readings are starting to become less controlled. 02/12/2020 . Diabetes Mellitus - controlled - per r ecent FSBS reports. I have recommended for the [...] change in blood pressure readings at home. 12/09/2019 . Hypertension - well controlled - michaelle nue with current medications, continue with no added [...] readings are starting to become less controlled. Atrial Fibrillation - pt on chronic anticoagulation and is currently rate controlled. The pt is to have labs done as appropriate to monitor medication levels and is to report if they start to feel as if their heart rate is becoming uncontrolled. 09/09/2019 . Hypertension - not optimally controlle d today- pt reports improved blood pressures at home pt is to continue with current medications, continue with no added salt diet. Pt has been encouraged to exercise daily. The pt has been advised to call the office if there are any acute concerns about change in blood pressure readings at home. Diabetes Mellitus - improved control based on last two Hgba1c's - with level going from 8.8 to 7.9 - continue with current medications - cutting back on Carbohydrates and increase activity. I have recommended for the patient to have follow up labs prior to the next office visit. The patient has been instructed to continue with current medications as previously directed, continue with regular FSBS monitoring to assure continued control of diabetes. Pt to call for any acute concerns, complaints, or if the blood glucose readings are starting to become less controlled. Asthma - chronic problem for this patient. We have reviewed chronic treatment strategy, symptom control, and plans for acute exacerbation. No changes today to the current treatment plan as the patient is stable, monitor for acute changes Influenza vaccine today in clinic 05/13/2019 . Hypertension - well controlled - mcihaelle nue with current medications, continue with no added salt diet. Pt has been encouraged to exercise daily. The pt has been advised to call the office if there are any acute concerns about change in blood pressure readings at home. Diabetes Mellitus - improved control with dietary restriction- per recent FSBS reports. I have recommended [...] readings are starting to become less controlled. 02/05/2019 . Hypertension - well controlled - michaelle nue with current medications, continue with no added salt diet. Pt has been encouraged to exercise daily. The pt has been advised to call the office if there are any acute concerns about change in blood pressure readings at home. Asthma Exacerbation with Bronchitis - Asthma is a chronic problem for [...] patient is stable, monitor for acute changes. DM - discussed with pt - she stated, initially, that she did not want to talk about this today - however after we were done with her appointment, she stated "what are we going to do about my blood glucose?" - I have instructed Thalia - that she needs to stop eating out, eat smaller portions, and we will talk about insulin at her appt in 2 weeks. She is to bring in a report of her FSBS so that we can see what times she is having the biggest issues - to determine if I will do meal-time or long acting insulin. 01/21/2019 . 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 Mauricio for right [...] are starting to become less controlled. 09/23/2018 vital sox - calf size of 15 inches. . Diabetes Mellitus - controlled - per r ecent FSBS reports. I have recommended for the [...] their heart rate is becoming uncontrolled. 01/21/2018 . Atrial Fibrillation - pt on chronic an ticoagulation and is currently rate controlled. The pt is to have labs done as appropriate to monitor medication levels and is to report if they start to feel as if their heart rate is becoming uncontrolled. Iron deficiency anemia - recommended that she needs to have labs done today - report on the labs show that she needs to have venofer IV. 12/04/2017 CHECK LABS VERTIGO EXERCISES FLONASE NASAL SPRAY . BPPV - Benign Paroxysmal Positional Ve rtigo - discussed diagnosis with the patient, offered the pt the appropriate additional information in hand-out. Pt instructed in home exercises to help alleviate and prevent future recurrent episodes of vertigo. Pt informed that if symptoms worsen, call the office for further instructions/medication interventions. HTN-elevated today-monitor at home Cxveqf-xmshqha-ypymy labs Allergies-add flonase nasal spray 11/13/2017 restart SYMBICORT 2 puffs twice daily kenalog [...] is stable, monitor for acute changes. 10/30/2017 . GERD-continue protonix and carafate-lo w spice diet -call if symptoms uncontrolled Melana-history of anemia-check Hgb-stay off aspirin per Dr Lauren Mcdermott-now in NSR -continue xarelto-follow up with Dr Aguilar as scheduled DM-check Hgb A1C 09/20/2017 . Hypertension - well controlled - michaelle nue with current medications, continue with no added [...] patient stabilized during the removal process. 05/29/2017 . Bronchitis - acute case of bronchitis identified. Pt has been given antibiotics, breathing treatments as appropriate, and pt has been instructed to call if symptoms are not improved, or if symptoms acutely worsen. Chest pain - chest wall - toradol shot hospira [id number] november 2018 05/14/2017 . Diabetes Mellitus - Uncontrolled - per [...] changes. Steroid shot in clinic today. 03/06/2017 . Hypertension - well controlled - michaelle nue with current medications, continue with no added salt diet. Pt has been encouraged to exercise daily. The pt has been advised to call the office if there are any acute concerns about change in blood pressure readings at home. Esophagitis - RX for pantoprazole and carafate given to patient - continue with current treatment. 11/01/2016 . ADMIT FROM CLINIC TO HOSPITAL - PT IS ACUTELY ILL, REQUIRES HOSPITALIZATION. THE PATIENT HAS BEEN EVALUATED IN CLINIC AND THIS STANDS THE HOSPITAL HISTORY AND PHYSICAL EXAMINATION. THE PATIENT HAS BEEN SENT TO THE HOSPITAL WITH WRITTEN ORDERS FOR TREATMENT AND EVALUATION OF THE ACUTE ILLNESS. 10/18/2016 . Esophageal Reflux - the patient has be en counseled against excessive intake of caffeine, spicy [...] is stable, monitor for acute changes 10/12/2016 stop the janumet 50/1000mg and start on [...] in blood pressure readings at home. 09/04/2016 . Edema - pt has been advised [...] is worsening or does not improve. 05/30/2016 STOP ENSURE - START ON GLUCERNA DECREASE [...] allow for greater blood glucose control. 05/01/2016 . Diabetes Mellitus - controlled - per r ent FSBS reports. I have recommended for the [...] is stable, monitor for acute changes 02/29/2016 probiotic increase to three times daily while on antibiotics . Hypertension - well controlled - michaelle nue with current medications, continue with no added [...] with Dr. Aguilar as previously scheduled. 02/03/2016 stop your current metformin - Dr. Ba on is prescribing an extended release metformin that [...] . Diabetes Mellitus - controlled - per r ecent FSBS reports. I have recommended for the [...] call office with blood pressure readings. 12/21/2015 . Asthma Exacerbation - Asthma is a boarding mother marguerite problem for this patient, however, the pt [...] for acute changes. kenalog shot today 10/25/[address] DR. ELAINE IN TO SEE PT - PT HAS ACU TE ANXIETY, DYSPNEA, AND CHEST PAIN - ADMIT FROM CLINIC TO HOSPITAL - PT IS ACUTELY ILL, REQUIRES HOSPITALIZATION. THE PATIENT HAS BEEN EVALUATED IN CLINIC AND THIS STANDS THE HOSPITAL HISTORY AND PHYSICAL EXAMINATION. THE PATIENT HAS BEEN SENT TO THE HOSPITAL WITH WRITTEN ORDERS FOR TREATMENT AND EVALUATION OF THE ACUTE ILLNESS. 10/19/2015 . Diabetes Mellitus - controlled - per r ecent FSBS reports. I have recommended for the [...] based on previous levels of control. 06/22/2015 . Hypertension - well controlled - michaelle nue with current medications, continue with no added [...] are starting to become less controlled. 12/22/2014 albuterol nebulizer - use three times da yobani x 3 days, then twice daily x [...] in blood pressure readings at home. 08/17/2014 . Diabetes Mellitus - controlled - per r ent FSBS reports. I have recommended for the [...] to use Symbicort and prn albuterol. 04/13/2014 . Hypertension - well controlled - michaelle nue with current medications, continue with no added [...] based on previous levels of control. 12/11/2013 take the glipizide 5mg 1/2 pill twice da yobani. if the blood sugars are too low, [...] is to call for acute concerns. 11/10/2013 BIOTENE MOUTHWASH FOR DRY MOUTH AND DRY [...] worse. RX sent to patient's pharmacy. 08/11/2013 . Hypertension - well controlled - michaelle nue with current medications, continue with no added [...] allow for greater blood glucose control. 01/06/2013 . Diabetes Mellitus - controlled - per r [facility] FSBS reports. I have recommended for the [...] symbicort. Pt given steroid shot today. 10/07/2012 . Diabetes Mellitus - Uncontrolled - per [...] have pt get mammogram and ultrasound 09/11/2012 . Hypertension - uncontrolled in clinic, but [...] check labs - CBC, digoxin level. 07/15/2012 . Diabetes Mellitus -fairly well control led - per recent FSBS reports. I have [...] the Aspirin and continuing with Plavix. 05/02/2012 . Diabetes Mellitus - Uncontrolled - per [...] INSTEAD OF STOPPING THE ASPIRIN COMPELTELY. 03/28/2012 . Diabetes Mellitus - Uncontrolled - per [...] in blood pressure readings at home. 11/27/2011 . Hypertension - well controlled - cont inue with current medications, continue with no added [...] carafate back to four times daily. 10/25/2011 . GI bleed secondary to the medication c ausing irritation to the stomach and it led to EROSIVE GASTRITIS.. The protonix is supposed to decrease the amount of acid in the stomach and preventing the medication and the acid from causing a hole in the stomach and further bleeding. Anemia- improved, the hemoglobin has improved from 10.6 to 11.4 10/11/2011 . Abdominal pain and Hematochezia - I watkins ve discussed this case with Dr. Aguilar as [...] but her HGB has remained stable. 10/04/2011 . DM - uncontrolled due to need [...] call if symptoms do not improve. 09/25/2011 Recommend claritin 10mg po daily at [facility] t 2 weeks.. Recommend probiotic (over the counter) twice daily while on the antibiotic to help prevent diarrhea. Samples of volteran gel to neck four times per day as needed for pain. Call next week if neck pain does not improve. . Sinusitis - Pt has acute infection - p ain in face, maxillary region, Pt informed to use decongestant, RX given to patient, sinus rinses also recommended. Call if symptoms do not show improvement. Neck pain-discussed natural and expected course of this diagnosis and instructed patient to alert me if symptoms do not follow expected course, or if any worse. Sampels of volteran gel provided and instructed patient on use. 05/22/2011 . Hyperlipidemia - pt has been counsele d about appropriate diet, exercise, and need for [...] blood glucose control. metformin dose increased. 05/05/2011 Medical Equipment No Medical Equipment data Health Concerns Section Health Concerns data not found Goals Section Goals data not found Interventions Section Interventions data not found Health Status Evaluations/Outcomes Section Health Status Evaluations/Outcomes data not found Advance Directives Filename Date thalia tadeo living will 02/03/2016
--- OUTSIDE RECORDS SUMMARY | 2022-11-09 15:39 | XMS REPORT | CCD ---
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 Name Role Phone Clarice Elaine PP Unavailable CCM Unavailable Summary Purpose Interface Exchange Insurance Providers Payer name Policy type / Coverage type Covered constitution party ID Effective Begin Date Effective End Date [facility] Medicare Part B [id number] Unknown [facility] Medicare Part B [id number] Unknown Family history Father Diagnosis Age At [...] 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 Unknown Has nev er used illegal drugs 05/05/2011 Allergies, Adverse Reactions, Alerts Substance Reaction Codes Entered Date Inactivated Date Status noroxin RxNorm: 995571 05/05/2011 No Inactive Date Acti ve Levaquin RxNorm: 754957 10/11/2011 No Inactive Date Acti ve METRONIDAZOLE Unknown 05/05/2011 No Inactive Date Activ e trovan RxNorm: 656382 05/05/2011 No Inactive Date Acti ve MORPHINE SULFATE RxNorm: 64527 10/11/2011 No Inactive Date Active * NO KNOWN FOOD ALLERGIES Unknown 05/05/2011 No Inactiv e Date Active PREDNISONE RxNorm: 8640 05/05/2011 No Inactive Date Active cephalexin RxNorm: 426284 05/05/2011 No Inactive Date Acti ve azithromycin Unknown 10/11/2011 No Inactive Date Active theophylline RxNorm: 93319 05/05/2011 No Inactive Date Act pilar Problems [...] Start Date Stop Date Status Fill Instructions Pepcid 20 mg tablet RxNorm: 260924 1 Tablet(s) Oral two times a day 10/25/2022 10/25/2022 Inactive Pepcid 20 mg tablet RxNorm: 375490 Take 1 Tablet(s) Oral two ti mes a day 10/25/2022 11/23/2022 Active doxycycline hyclate 100 mg tablet RxNorm: 6478294 Take 1 Tablet(s) Oral three times a day 10/23/2022 10/29/2022 Active Mucinex 600 mg tablet, extended release RxNorm: 728968 Take 1 Tablet(s) Oral two times a day 10/23/2022 11/01/2022 Active amiodarone 100 mg tablet RxNorm: 389054 Take 1 Tablet(s) Oral e very other day 10/17/2022 10/11/2023 Active Jardiance 10 mg tablet RxNorm: 6435566 Take 1 Tablet(s) Oral daniela ry day 10/17/2022 11/15/2022 Active Ozempic 0.25 mg or 0.5 mg (2 mg/1.5 mL) subcutaneous p en injector RxNorm: 5117126 Inject 0.5 Milligram(s) Subcutaneous once a week 10/17/2022 02/13/2023 Active Accu-Chek Fastclix Lancet Drum RxNorm: USE 1 ROGE CET TO CHECK GLUCOSE ONCE DAILY 08/23/2022 01/14/2024 Active Jardiance 25 mg tablet RxNorm: 8827546 Take 1 Tablet(s) Oral daniela ry day 06/20/2022 10/16/2022 Inactive pantoprazole 40 mg tablet,delayed release RxNorm: 357802 Take 1 Tablet(s) Oral two times a day 06/05/2022 09/02/2022 Inactive glipizide 5 mg tablet RxNorm: 773477 Take 1 Tablet(s) Oral two times a day 03/03/2022 02/25/2023 Active triamcinolone acetonide 0.5 % topical cream RxNorm: 2255256 Apply 1 Topical three times a day 02/23/2022 03/04/2022 Inactive Bactrim DS 800 mg-160 mg tablet RxNorm: 140309 Take 1 T ablet(s) Oral two times a day 02/20/2022 02/26/2022 Inactive amiodarone 200 mg tablet RxNorm: 133727 Take 1/2 Tablet(s) Oral every day 02/12/2022 09/09/2022 Inactive amiodarone 200 mg tablet RxNorm: 905900 1/2 Tablet(s) Oral every da y 02/09/2022 02/09/2022 Inactive amiodarone 200 mg tablet RxNorm: 354704 Take 1/2 Tablet(s) Oral every day 02/09/2022 02/09/2022 Inactive amiodarone 100 mg tablet RxNorm: 980692 Take 1 Tablet(s) Oral e 02/07/2022 02/08/2022 Inactive this replaces the 20 0mg dose Victoza 2-Abdirizak 0.6 mg/0.1 mL (18 mg/3 mL) subcutaneous pen injector RxNorm: 664669 Inject 1.8 Milligram(s) Subcutaneous every day 02/07/2022 0 10/16/2022 Inactive 1 month supply with needles ondansetron 4 mg disintegrating tablet RxNorm: 981874 1 Tablet(s) Oral as needed 02/06/2022 No Stop Date Active Synthroid 75 mcg tablet RxNorm: 310099 Take 1 as direct ed take one tab m/w/f/sat/sun, no tabs tues/thurs 02/06/2022 06/30/2022 Inactive amiodarone 200 mg tablet RxNorm: 520166 Take 1 Tablet(s) Oral t wo times a day 02/06/2022 02/06/2022 Inactive ondansetron 4 mg disintegrating tablet RxNorm: 023083 T gisselle 1 Tablet(s) Oral four times a day as needed nausea 01/04/2022 02/02/2022 Inactive Accu-Chek Tracy Plus test strips RxNorm: USE 1 S TRIP TO CHECK GLUCOSE ONCE DAILY 12/08/2021 03/21/2025 Active Synthroid 75 mcg tablet RxNorm: 370023 TAKE 1 TABLET BY MOUTH O NCE DAILY 10/10/2021 02/05/2022 Inactive amiodarone 200 mg tablet RxNorm: 445349 Take 1 Tablet(s) Oral t wo times a day 09/13/2021 02/06/2022 Inactive diltiazem ER (XR/XT) 120 mg capsule,extended release 2 4 hr, controlled RxNorm: 810609 Take 1 Capsule(s) Oral every day 09/13/2021 01/03/2022 Inactive Accu-Chek Fastclix Lancet Drum RxNorm: USE 1 ROGE CET TO CHECK GLUCOSE ONCE DAILY 06/17/2021 06/17/2021 Inactive Accu-Chek Fastclix Lancet Drum RxNorm: USE 1 ROGE CET TO CHECK GLUCOSE ONCE DAILY 06/13/2021 06/13/2021 Inactive glipizide 5 mg tablet RxNorm: 169396 1 Tablet(s) Oral two times a day 04/05/2021 04/05/2021 Inactive Victoza 2-Abdirizak 0.6 mg/0.1 mL (18 mg/3 mL) subcutaneous pen injector RxNorm: 164409 Inject 1.2 Milligram(s) Subcutaneous every day 04/05/2021 0 02/06/2022 Inactive 1 month supply with needles Synthroid 75 mcg tablet RxNorm: 832084 TAKE 1 TABLET BY MOUTH O NCE DAILY 01/11/2021 04/10/2021 Inactive Victoza 2-Abdirizak 0.6 mg/0.1 mL (18 mg/3 mL) subcutaneous pen injector RxNorm: 273957 Milliliter(s) Subcutaneous as directed 0 .6mg daily x 1 week then 1.2mg daily 12/08/2020 12/07/2020 Inactive Trulicity is too expensive- wants to cano this victoza Victoza 2-Abdirizak 0.6 mg/0.1 mL (18 mg/3 mL) subcutaneous pen injector RxNorm: 121497 Milliliter(s) Subcutaneous as directed 0 .6mg daily x 1 week then 1.2mg daily 12/08/2020 04/04/2021 Inactive Trulicity is too expensive- wants to cano this victoza- please call her- qty sufficient for 30 days Trulicity 0.75 mg/0.5 mL subcutaneous pen injector RxNorm: 1 370061 INJECT 1 SYRINGE SUBCUTANEOUSLY ONCE A WEEK 10/13/2020 04/04/2021 Inactive Advair HFA 115 mcg-21 mcg/actuation aerosol inhaler RxNorm: 9621045 1 Puff(s) Inhalation two times a day 08/05/2020 No Stop Date Active Accu-Chek Tracy Plus test strips RxNorm: Miscell aneous USE 1 STRIP TO CHECK GLUCOSE ONCE DAILY 07/26/2020 07/26/2020 Inactive Accu-Chek Tracy Plus test strips RxNorm: Miscell aneous USE 1 STRIP TO CHECK GLUCOSE ONCE DAILY 07/26/2020 07/25/2020 Inactive Trulicity 0.75 mg/0.5 mL subcutaneous pen injector RxNorm: 1 807741 INJECT 1 SYRINGE SUBCUTANEOUSLY ONCE A WEEK 06/22/2020 10/12/2020 Inactive Accu-Chek Multiclix Lancet RxNorm: USE 1 LANCET TO CHECK GLUCOSE ONCE DAILY 04/26/2020 04/26/2020 Inactive glipizide 5 mg tablet RxNorm: 970007 1 Tablet(s) Oral two times a day 04/07/2020 04/01/2021 Inactive Synthroid 75 mcg tablet RxNorm: 907098 TAKE 1 TABLET BY MOUTH O NCE DAILY 04/07/2020 01/01/2021 Inactive Trulicity 0.75 mg/0.5 mL subcutaneous pen injector RxNorm: 1 993243 INJECT 1 SYRINGE SUBCUTANEOUSLY ONCE A WEEK 12/31/2019 06/15/2020 Inactive fluticasone 113 mcg-salmeterol 14 mcg/actuation breath activated powdr RxNorm: 5285194 INHALE 1 PUFF TWICE DAILY 12/31/2019 06/27/2020 Inactive Trulicity 0.75 mg/0.5 mL subcutaneous pen injector RxNorm: 1 874217 0.5 Milliliter(s) Subcutaneous once a week 09/09/2019 12/30/2019 Inactive Synthroid 75 mcg tablet RxNorm: 246859 TAKE 1 TABLET BY MOUTH O NCE DAILY 08/04/2019 04/06/2020 Inactive Symbicort 160 mcg-4.5 mcg/actuation HFA aerosol inhaler RxNo rm: 6212556 2 Inhalation two times a day 05/13/2019 08/04/2020 Inactive glipizide 5 mg tablet RxNorm: 159109 1 Tablet(s) Oral two times a day 05/08/2019 04/06/2020 Inactive doxycycline hyclate 100 mg tablet RxNorm: 7807841 1 Tablet(s) PO BI D 01/21/2019 02/03/2019 Inactive fluticasone 113 mcg-salmeterol 14 mcg/actuation breath activated powdr RxNorm: 2993806 1 inhale INH BID 01/21/2019 08/18/2019 Inactive Synthroid 75 mcg tablet RxNorm: 238200 TAKE 1 TABLET BY MOUTH O NCE DAILY 10/28/2018 08/03/2019 Inactive Dulera 100 mcg-5 mcg/actuation HFA aerosol inhaler RxNorm: 1 775607 1 Puff(s) INH BID 09/23/2018 01/20/2019 Inactive Kenalog 40 mg/mL suspension for injection RxNorm: 1709182 Millil iter(s) Inj 09/23/2018 09/23/2018 Inactive albuterol sulfate 2.5 mg/3 mL (0.083 %) solution for n ebulization RxNorm: 634997 USE 1 VIAL IN NEBULIZER 4 TIMES DAILY NEEDED FOR ASTHMA 0 08/26/2018 No Stop Date Active Symbicort 160 mcg-4.5 mcg/actuation HFA aerosol inhaler RxNorm: 3781612 1 INH 06/07/2018 06/06/2018 Inactive Symbicort 160 mcg-4.5 mcg/actuation HFA aerosol inhaler RxNo rm: 4419396 1 INH BID 06/07/2018 07/06/2018 Inactive glipizide 5 mg tablet RxNorm: 300201 1/2 Tablet(s) PO B ID TAKE ONE-HALF TABLET BY MOUTH TWICE DAILY 05/27/2018 05/07/2019 Inactive Synthroid 75 mcg tablet RxNorm: 652736 1 Tablet(s) PO daily 018 05/14/2018 Inactive Synthroid 75 mcg tablet RxNorm: 598835 1 Tablet(s) PO daily 018 10/27/2018 Inactive Synthroid 88 mcg tablet RxNorm: 951963 TAKE 1 TABLET BY MOUTH O NCE DAILY 04/08/2018 05/14/2018 Inactive amiodarone 200 mg tablet RxNorm: 870203 1/2 Tablet(s) PO BID 201705/26/2018 Inactive Bactrim DS 800 mg-160 mg tablet RxNorm: 267775 1 Tablet(s) PO BID 0 01/03/2018 01/02/2018 Inactive take probiotic bid x 7 days Bactrim DS 800 mg-160 mg tablet RxNorm: 849615 1 Tablet(s) PO BID 0 01/03/2018 01/09/2018 Inactive take probiotic bid x 7 days nitrofurantoin 100 mg capsule RxNorm: 360392 1 Capsule(s) PO BID 01/06/2018 Inactive nitrofurantoin 100 mg capsule RxNorm: 807473 1 Capsule(s) PO BID 12/30/2017 Inactive nitrofurantoin 100 mg capsule RxNorm: 416383 1 Capsule(s) PO BID 12/30/2017 Inactive glipizide 5 mg tablet RxNorm: 846648 TAKE ONE-HALF TABLET BY [facility] TWICE DAILY 11/23/2017 05/26/2018 Inactive meclizine 25 mg tablet RxNorm: 150324 1 Tablet(s) PO Q6 PRN 018 No Stop Date Active Kenalog 40 mg/mL suspension for injection RxNorm: 3668493 1.5 Mi lliliter(s) Inj 10/30/2017 10/30/2017 Inactive Augmentin 875 mg-125 mg tablet RxNorm: 456569 1 Tablet(s) PO BID 11/05/2017 Inactive Synthroid 88 mcg tablet RxNorm: 987709 TAKE ONE TABLET BY MOUTH ONCE DAILY 10/15/2017 04/07/2018 Inactive metformin 500 mg tablet RxNorm: 039680 TAKE ONE TABLET BY MOUTH WITH BREAKFAST AND ONE TABLET WITH LUNCH AND TWO TABLETS WITH SUPPER 10/15/20172017 Inactive albuterol sulfate 2.5 mg/3 mL (0.083 %) solution for n ebulization RxNorm: 701721 USE ONE VIAL IN NEBULIZER 4 TIMES DAILY NEEDED FOR ASTHMA 08/16/2017 08/25/2018 Inactive Plavix 75 mg tablet RxNorm: 858241 TAKE ONE TABLET BY MOUTH ONC E DAILY 06/25/2017 06/24/2017 Inactive Plavix 75 mg tablet RxNorm: 451647 1 Tablet(s) PO daily TAKE ONE TABLET BY MOUTH ONCE DAILY 06/25/2017 09/19/2017 Inactive acyclovir 800 mg tablet RxNorm: 757258 1 Tablet(s) PO QID 05/15/2017 05/14/2017 Inactive acyclovir 800 mg tablet RxNorm: 741020 1 Tablet(s) PO QID 05/15/2017 05/21/2017 Inactive tramadol 50 mg tablet RxNorm: 221097 1 Tablet(s) PO TID 05/15/2017 Inactive ketorolac 60 mg/2 mL intramuscular solution RxNorm: 212046 2 Mi lliliter(s) IM 05/14/2017 05/14/2017 Inactive Augmentin 875 mg-125 mg tablet RxNorm: 682290 1 Tablet(s) PO BID 05/23/2017 Inactive Synthroid 88 mcg tablet RxNorm: 357098 TAKE ONE TABLET BY MOUTH ONCE DAILY; NEED THYROID LABS DONE 04/16/2017 10/12/2017 Inactive Kenalog 40 mg/mL suspension for injection RxNorm: 6271517 Millil iter(s) Inj 03/06/2017 03/06/2017 Inactive metformin 500 mg tablet RxNorm: 076760 1 Tablet(s) UD 1 tab at breakfast, 1tab at lunch, 2 tab at supper 03/06/2017 09/01/2017 Inactive glipizide 5 mg tablet RxNorm: 448096 TAKE ONE-HALF TABLET BY [facility] TWICE DAILY 02/23/2017 11/19/2017 Inactive Synthroid 88 mcg tablet RxNorm: 300273 Tablet(s) PO LESLEE E ONE TABLET BY MOUTH DAILY 01/17/2017 04/15/2017 Inactive Needs thyroid la bs done Plavix 75 mg tablet RxNorm: 981612 TAKE ONE TABLET BY MOUTH ONC E DAILY 12/25/2016 06/22/2017 Inactive Kenalog 40 mg/mL suspension for injection RxNorm: 8040234 1.5 Mi lliliter(s) Inj 09/04/2016 09/04/2016 Inactive Janumet XR 100 mg-1,000 mg tablet,extended release RxNorm: 1 520795 1 Tablet(s) PO daily 09/04/2016 03/02/2017 Inactive glipizide 5 mg tablet RxNorm: 870236 TAKE ONE-HALF TABLET BY [facility] TWICE DAILY 08/24/2016 02/19/2017 Inactive Janumet XR 50 mg-1,000 mg tablet,extended release RxNorm: 12 85320 TAKE ONE TABLET BY MOUTH ONCE DAILY 05/29/2016 09/03/2016 Inactive metoprolol tartrate 25 mg tablet RxNorm: 262027 1/4 Tablet(s) PO BI D 05/01/2016 05/29/2016 Inactive glipizide 5 mg tablet RxNorm: 226330 TAKE ONE-HALF TABLET BY [facility] TWICE DAILY 02/21/2016 08/18/2016 Inactive ProAir HFA 90 mcg/actuation aerosol inhaler RxNorm: 396645 2 Puff(s) INH PRN as needed ASTHMA 02/03/2016 03/03/2016 Inactive albuterol sulfate 2.5 mg/3 mL (0.083 %) solution for n ebulization RxNorm: 995689 1 Milliliter(s) INH QID as needed ASTHMA 02/03/2016 06/01/2016 Inactive Accu-Chek Active Test strips RxNorm: 1 test Miscellaneous homer y 02/03/2016 07/25/2020 Inactive DX250.00 Janumet XR 50 mg-1,000 mg tablet,extended release RxNorm: 12 28905 1 Tablet(s) PO daily 02/03/2016 05/28/2016 Inactive Augmentin 875 mg-125 mg tablet RxNorm: 092072 1 Tablet(s) PO BID 02/12/2016 Inactive sucralfate 1 gram tablet RxNorm: 680402 1 Tablet(s) PO QID - take 30 minutes before meals and before supper 12/21/2015 02/04/2019 Inactive metformin ER 500 mg tablet,extended release 24 hr RxNorm: 86 0975 1 Tablet(s) PO BID 12/21/2015 02/02/2016 Inactive digoxin 250 mcg tablet RxNorm: 538473 1 Tablet(s) PO daily 12/21/19 16 01/20/2018 Inactive Synthroid 88 mcg tablet RxNorm: 070429 Tablet(s) PO LESLEE E ONE TABLET BY MOUTH DAILY 12/20/2015 01/16/2017 Inactive Plavix 75 mg tablet RxNorm: 721691 1 Tablet(s) PO daily 12/20/2015 Inactive Kenalog 40 mg/mL suspension for injection RxNorm: 1542752 1 Mill iliter(s) Inj 11/11/2015 11/11/2015 Inactive Kenalog 40 mg/mL suspension for injection RxNorm: 2230859 1 Mill iliter(s) Inj 10/25/2015 10/25/2015 Inactive metformin 500 mg tablet RxNorm: 626099 2 Tablet(s) PO BID 07/16/2015 12/20/2015 Inactive metformin 500 mg tablet RxNorm: 599524 TAKE TWO TABLETS BY MOUT H TWICE DAILY 07/16/2015 12/20/2015 Inactive albuterol sulfate 2.5 mg/3 mL (0.083 %) solution for n ebulization RxNorm: 881319 1 Milliliter(s) INH QID as needed ASTHMA 07/14/2015 11/10/2015 Inactive glipizide 5 mg tablet RxNorm: 166105 1/2 Tablet(s) PO BID 02/03/2015 01/28/2016 Inactive Symbicort 160 mcg-4.5 mcg/actuation HFA aerosol inhaler RxNorm: 9316823 1 INH 01/06/2015 06/06/2018 Inactive metformin 500 mg tablet RxNorm: 218933 2 Tablet(s) PO BID 12/22/2014 06/19/2015 Inactive Plavix 75 mg tablet RxNorm: 784146 1 Tablet(s) PO daily 12/02/2014 Inactive note directions of one per day Synthroid 88 mcg tablet RxNorm: 369106 1 Tablet(s) PO d aily TAKE ONE TABLET BY MOUTH DAILY 12/02/2014 04/07/2018 Inactive Accu-Chek Active Test strips RxNorm: 1 test Miscellaneous homer y 08/17/2014 02/02/2016 Inactive DX250.00 Kenalog 40 mg/mL suspension for injection RxNorm: 1049483 Millil iter(s) Inj 08/17/2014 08/17/2014 Inactive doxycycline hyclate 100 mg tablet RxNorm: 792296 1 Tablet(s) PO BID 08/17/2014 08/26/2014 Inactive albuterol sulfate 2.5 mg/3 mL (0.083 %) solution for n ebulization RxNorm: 867535 1 Milliliter(s) INH QID as needed ASTHMA 08/17/2014 08/16/2014 Inactive albuterol sulfate 2.5 mg/3 mL (0.083 %) solution for n ebulization RxNorm: 956986 1 Milliliter(s) INH QID as needed ASTHMA 08/17/2014 12/14/2014 Inactive doxycycline hyclate 100 mg tablet RxNorm: 852491 1 Tablet(s) PO BID 08/17/2014 08/16/2014 Inactive Accu-Chek Multiclix Lancet RxNorm: 1 Miscellaneo us daily TEST BLOOD SUGAR EVERY DAY 08/17/2014 09/10/2015 Inactive DX 250.00 metformin 500 mg tablet RxNorm: 020404 TAKE TWO TABLETS BY MOUT H TWICE DAILY 06/23/2014 09/20/2014 Inactive metformin 500 mg tablet RxNorm: 729244 2 Tablet(s) PO BID 06/22/2014 12/18/2014 Inactive Bactrim DS 800 mg-160 mg tablet RxNorm: 287074 1 Tablet(s) PO BID 1 07/11/2013 05/17/2014 Inactive Bactrim DS 800 mg-160 mg tablet RxNorm: 850314 1 Tablet(s) PO BID 1 07/11/2013 05/10/2014 Inactive Kenalog 40 mg/mL suspension for injection RxNorm: 1200335 Millil iter(s) Inj 04/13/2014 04/13/2014 Inactive Accu-Chek Active Test strips RxNorm: 1 TEST MISCELLANEOUS BID 04/06/2014 10/22/2014 Inactive glipizide 5 mg tablet RxNorm: 237490 1/2 Tablet(s) PO BID 03/03/2014 02/02/2015 Inactive Synthroid 88 mcg tablet RxNorm: 494646 1 Tablet(s) PO d aily TAKE ONE TABLET BY MOUTH DAILY 12/11/2013 12/01/2014 Inactive Plavix 75 mg tablet RxNorm: 339523 1 Tablet(s) PO daily 12/11/2013 Inactive note directions of one per day glipizide 5 mg tablet RxNorm: 941916 1/2 Tablet(s) PO BID 11/10/2013 03/02/2014 Inactive Lipitor 10 mg tablet RxNorm: 438242 1 Tablet(s) PO daily 11/10/2013 0 12/21/2014 Inactive Accu-Chek Active Test strips RxNorm: strip misce llaneous TEST BLOOD SUGAR EVERY DAY 11/03/2013 07/25/2020 Inactive Accu-Chek Multiclix Lancet RxNorm: misc miscella neous TEST BLOOD SUGAR EVERY DAY 08/07/2013 08/16/2014 Inactive digoxin 125 mcg tablet RxNorm: 689742 1 Tablet(s) PO daily 08/05/19 14 10/28/2014 Inactive Accu-Chek Active Test strips RxNorm: strip misce llaneous TEST BLOOD SUGAR EVERY DAY 08/05/2013 07/25/2020 Inactive metformin 500 mg tablet RxNorm: 024720 2 Tablet(s) PO BID 06/12/2013 06/21/2014 Inactive metformin 500 mg tablet RxNorm: 882413 2 Tablet(s) PO BID 05/12/2013 06/11/2013 Inactive metformin 500 mg tablet RxNorm: 335183 Tablet(s) PO LESLEE E ONE & ONE-HALF TABLETS BY MOUTH TWICE DAILY 04/10/2013 05/11/2013 Inactive Synthroid 88 mcg tablet RxNorm: 555639 Tablet(s) PO LESLEE E ONE TABLET BY MOUTH DAILY 01/07/2013 12/19/2015 Inactive Synthroid 88 mcg tablet RxNorm: 250822 1 Tablet(s) PO d aily TAKE ONE TABLET BY MOUTH DAILY 01/06/2013 12/10/2013 Inactive Plavix 75 mg tablet RxNorm: 686915 1 Tablet(s) PO daily 12/09/2012 Inactive note directions of one per day Lipitor 80 mg tablet RxNorm: 954800 Tablet(s) PO TAKE 1 TABLET BY MOUTH EVERY DAY 10/28/2012 11/09/2013 Inactive Synthroid 88 mcg tablet RxNorm: 816248 Tablet(s) PO LESLEE E ONE TABLET BY MOUTH DAILY 10/07/2012 10/06/2012 Inactive Synthroid 88 mcg tablet RxNorm: 351199 1 Tablet(s) PO d aily TAKE ONE TABLET BY MOUTH DAILY 10/07/2012 01/05/2013 Inactive Kenalog 40 mg/mL Susp for Injection RxNorm: 9136514 1 Milliliter (s) IM 10/07/2012 10/07/2012 Inactive digoxin 250 mcg tablet RxNorm: 6257777 1/2 Tablet(s) PO daily 07/1508/04/2013 Inactive Synthroid 88 mcg tablet RxNorm: 965807 Tablet(s) PO LESLEE E ONE TABLET BY MOUTH DAILY 06/28/2012 10/06/2012 Inactive Accu-Chek Multiclix Lancet RxNorm: Misc Miscellaneous 06/05/2012 0 07/25/2020 Inactive TEST BLOOD SUGAR EVERY DAY Accu-Chek Active Test Strips RxNorm: Strip Miscellaneous 2 07/25/2020 Inactive TEST BLOOD SUGAR EVERY DAY Lipitor 80 mg tablet RxNorm: 990321 1/2 Tablet(s) PO daily 03/28/20 12 03/27/2012 Active TAKE 1 TABLET BY MOUTH EVERY DAY metformin 500 mg tablet RxNorm: 832245 1.5 Tablet(s) PO BID 012 04/09/2013 Inactive Lipitor 80 mg tablet RxNorm: 932229 1/2 Tablet(s) PO 03/28/201208/16 Inactive TAKE 1 TABLET BY MOUTH EVERY DAY Lipitor 80 mg tablet RxNorm: 286588 1/2 Tablet(s) PO daily 03/28/2003/27/2012 Active TAKE 1 TABLET BY MOUTH EVERY DAY Influenza Virus Vaccine 0.5 mL RxNorm: IM 03/26/2012 03/26/20 12 Inactive Pneumovax 23 25 mcg/0.5 mL Injection RxNorm: 2761417 Milliliter( s) Inj 03/26/2012 03/26/2012 Inactive metformin 500 mg tablet RxNorm: 111627 1 Tablet(s) PO BID 11/27/2011 03/27/2012 Inactive Plavix 75 mg tablet RxNorm: 637733 1 Tablet(s) PO daily 11/01/2011 Inactive note directions of one per day Lipitor 80 mg tablet RxNorm: 796257 Tablet(s) PO 10/18/2011 03/27/2012 Inactive TAKE 1 TABLET BY MOUTH EVERY DAY Protonix 40 mg Tab RxNorm: 051997 1 Tablet(s) PO BID 10/11/201112/19 Inactive Accu-Chek Active Test Strips RxNorm: 1 test Miscellaneous homer y 10/04/2011 08/16/2014 Inactive Carafate 1 gram Tab RxNorm: 735800 1 Tablet(s) PO QID 10/02/201110/08 Inactive Carafate 1 gram Tab RxNorm: 014177 1 Tablet(s) PO TID 09/29/201109/07 Inactive Carafate 1 gram Tab RxNorm: 839157 1 Tablet(s) PO TID 09/29/201109/07 Inactive Kenalog 40 mg/mL Susp for Injection RxNorm: 1668243 2 Milliliter (s) Inj 07/31/2011 07/31/2011 Inactive Synthroid 88 mcg tablet RxNorm: 812886 1 Tablet(s) PO daily 011 10/11/2011 Inactive Accu-Chek Active Test Strips RxNorm: 1 test Miscellaneous BID 06/05/2011 10/03/2011 Inactive Accu-Chek Multiclix Lancet RxNorm: 1 test Miscellaneous BID 09/24/2011 Inactive Accu-Chek Active Test strips RxNorm: 1 test Miscellaneous BID 06/02/2011 06/04/2011 Inactive Bactrim DS 800 mg-160 mg Tab RxNorm: 204846 1 Tablet(s) PO BID 05/0905/31/2011 Inactive metformin 500 mg Tab RxNorm: 329562 1 Tablet(s) PO TID 05/05/2011 Inactive Influenza Virus Vaccine 0.5 mL RxNorm: IM 05/02/2011 05/02/20 11 Inactive albuterol sulfate HFA 90 mcg/Actuation Aerosol Inhaler RxNor m: 126642 1 Puff(s) INH PRN prn shortness of breath 05/05/2011 Active Xarelto 20 mg tablet RxNorm: 3923932 1 Tablet(s) PO daily 09/20/2017 Active multivitamin chewable tablet RxNorm: 1 Tablet(s) PO daily 12/21/2015 Active Fish Oil 300 mg-1,000 mg capsule RxNorm: 863845 1 Capsule(s) PO occasional 12/21/2015 Active hyoscyamine 0.125 mg sublingual tablet RxNorm: 9678590 1 Tablet( s) SL Q6 11/01/2016 Active simvastatin 20 mg tablet RxNorm: 032633 1/2 Tablet(s) PO daily 12/0712/20/2015 Inactive Zantac 75 75 mg Tab RxNorm: 245957 2 Tablet(s) PO daily 12/21/2015 Inactive Protonix 40 mg Tab RxNorm: 054038 1 Tablet(s) PO daily 10/11/201109/2011 Inactive Fish Oil 1,000 mg capsule RxNorm: 3 Capsule(s) PO daily 12/21/2015 12/20/2015 Inactive amiodarone 400 mg tablet RxNorm: 202712 1 Tablet(s) PO daily 201712/09/2017 Inactive digoxin 125 mcg tablet RxNorm: 3287337 1 Tablet(s) PO daily 014 08/04/2013 Inactive Brilinta 90 mg Tab RxNorm: 3624529 1 Tablet(s) PO daily 10/11/2011 Inactive Fish Oil 1,000 mg Cap RxNorm: 3 Capsule(s) PO daily 12/21/2015 Inactive Flintstones Complete 18 mg iron chewable tablet RxNorm: 2 Tablet(s) PO daily 12/21/2015 12/20/2015 Inactive Niaspan Extended-Release 500 mg 24 hr Tab RxNorm: 5318112 1 Tabl et(s) PO daily 09/25/2011 09/24/2011 Inactive samples tramadol 50 mg tablet RxNorm: 586673 1 Tablet(s) PO TID 05/15/2017 Inactive aspirin 81 mg Cap, Delayed Release RxNorm: 983653 Capsule(s) PO daily 05/02/2012 05/01/2012 Inactive pantoprazole 40 mg tablet,delayed release RxNorm: 270286 1 Tabl et(s) PO daily 05/27/2018 05/26/2018 Inactive metformin 500 mg Tab RxNorm: 723346 1 Tablet(s) PO BID 05/05/2011 Inactive Singulair 10 mg tablet RxNorm: 835921 1 Tablet(s) PO daily 05/27/20 18 05/26/2018 Inactive Prilosec OTC 20 mg tablet,delayed release RxNorm: 640396 1 Tabl et(s) PO daily 11/01/2016 10/31/2016 Inactive Zantac 150 mg Tab RxNorm: 073884 1 Tablet(s) PO BID 10/11/20112011 Inactive Synthroid 88 mcg Tab RxNorm: 917900 1 Tablet(s) PO daily 06/06/2011 1 08/05/2010 Inactive Plavix 75 mg Tab RxNorm: 880384 1 Tablet(s) PO daily 11/01/201110/30 Inactive amiodarone 200 mg tablet RxNorm: 951401 1 Tablet(s) PO BID 01/22/20 18 01/20/2018 Inactive Cartia XT 120 mg capsule,extended release RxNorm: 432198 1 Capsule(s) PO daily and 1 QPM if HR above [address] Dr Aguilar manages 05/27/2018 05/26/2018 Inact pilar aspirin 81 mg Cap, Delayed Release RxNorm: 406673 1 Capsule(s) PO daily 10/04/2011 10/01/2011 Inactive Lipitor 80 mg Tab RxNorm: 964881 1 Tablet(s) PO daily 10/18/201110/07 Inactive Symbicort 160 mcg-4.5 mcg/Actuation HFA Aerosol Inhaler RxNorm: 5668511 1 INH 01/06/2015 01/05/2015 Inactive Medication Administered Medication Codes Instructions Start Date Status Kenalog 40 mg/mL suspension for injection RxNorm: 4596767 Millilite r 09/23/2018 No longer Active Kenalog 40 mg/mL suspension for injection RxNorm: 6065141 1.5Mil liliter 10/30/2017 No longer Active ketorolac 60 mg/2 mL intramuscular solution RxNorm: 660337 2Mil liliter 05/14/2017 No longer Active Kenalog 40 mg/mL suspension for injection RxNorm: [id number] Millilite r 03/06/2017 No longer Active Kenalog 40 mg/mL suspension for injection RxNorm: 6482550 1.5Mil liliter 09/04/2016 No longer Active Kenalog 40 mg/mL suspension for injection RxNorm: 2434952 1Milli liter 11/11/2015 No longer Active Kenalog 40 mg/mL suspension for injection RxNorm: 9337300 1Milli liter 10/25/2015 No longer Active Kenalog 40 mg/mL suspension for injection RxNorm: 9846665 Millilite r 08/17/2014 No longer Active Kenalog 40 mg/mL suspension for injection RxNorm: 1650003 Millilite r 04/13/2014 No longer Active Kenalog 40 mg/mL Susp for Injection RxNorm: 4075520 1Milliliter No longer Active Influenza Virus Vaccine 0.5 mL RxNorm: 03/26/2012 No longer Active Pneumovax 23 25 mcg/0.5 mL Injection RxNorm: 1186616 Milliliter 0 03/26/2012 No longer Active Kenalog 40 mg/mL Susp for Injection RxNorm: 0333665 2Milliliter No longer Active Influenza Virus Vaccine [...] Result Date S ervice Location Comp Metabolic Gfo382 NA 142 mEq/L 10/09/2022 Unkn own Comp Metabolic Lpq716 K 4.1 mEq/L 10/09/2022 Unkn own Comp Metabolic Nur366 CL 104 mEq/L 10/09/2022 Unkn own Comp Metabolic Kgb336 CO2 28 mEq/L 10/09/2022 Unkn own Comp Metabolic Laq904 ANION GAP 14 10/09/2022 Unkn own Comp Metabolic Lpy702 GLUCOSE 154 mg/dL 10/09/2022 Unkn own Comp Metabolic Vkc628 Creat 0.7 mg/dL 10/09/2022 Unkn own Comp Metabolic Fne091 eGFR 82 ml/min/1.73m2 10/10/19 23 Unknown Comp Metabolic Qyo466 BUN 15 mg/dL 10/09/2022 Unkn own Comp Metabolic Nou013 B/C Ratio 20.8 Ratio 10/09/2022 Unk nown Comp Metabolic Ibl463 CALCIUM 8.9 mg/dL 10/09/2022 Unkn own Comp Metabolic Zql640 ALK PHOS 62 U/L 10/09/2022 Unkn own Comp Metabolic Vhu717 AST(SGOT) 22 U/L 10/09/2022 Unkn own Comp Metabolic Fly250 ALT(SGPT) 21 U/L 10/09/2022 Unkn own Comp Metabolic Zjn514 BILI T 0.9 mg/dL 10/09/2022 Unkn own Comp Metabolic Bnf069 ALBUMIN 4.0 g/dL 10/09/2022 Unkn own Comp Metabolic Ojq834 TPRO 6.0 g/dL 10/09/2022 Unkn own Comp Metabolic Ivc778 GLOB 2.0 g/dL 10/09/2022 Unkn own Comp Metabolic Dxf559 A/G Ratio 2.0 Ratio 10/09/2022 Unkn own Comp Metabolic Gmu220 Osmo 287 mOsmo 10/09/2022 Unkn own Free T4 Zzz555 FREE T4 1.46 ng/dL 10/09/2022 Unknown Cbc [...] 10/10/19 23 Unknown Cbc With Differential Ord2 Roberts% 12.0 % 10/10/19 23 Unknown Cbc With [...] K/ul 023 Unknown Cbc With Differential Ord2 Roberts ABS# 0.5 K/ul 10/10/19 23 Unknown Cbc [...] IS) 3.37 uIU/mL 10/09/2022 Unkn own %Hba1C Xec625 % HbA1c 02606-5 9.0 % 10/09/2022 Unknown %Hba1C Ubm201 Gluc Ave 212 mg/dL 10/09/2022 Unknown %Hba1C Fmb048 % HbA1c 69209-8 8.3 % 06/13/2022 Unknown %Hba1C Lsh098 Gluc Ave 192 mg/dL 06/13/2022 Unknown Cbc [...] 06/13/20 22 Unknown Cbc With Differential Ord2 Roberts% 13.3 % 06/13/20 22 Unknown Cbc With [...] K/ul 022 Unknown Cbc With Differential Ord2 Roberts ABS# 0.6 K/ul 06/13/20 22 Unknown Cbc [...] C/HDL 4.2 Ratio 06/13/2022 Unknown Comp Metabolic Qqa218 NA 140 mEq/L 06/13/2022 Unkn own Comp Metabolic Fqo611 K 4.3 mEq/L 06/13/2022 Unkn own Comp Metabolic Huu611 CL 102 mEq/L 06/13/2022 Unkn own Comp Metabolic Awh191 CO2 30.0 mEq/L 06/13/2022 Unk nown Comp Metabolic Fhd354 ANION GAP 12 06/13/2022 Unkn own Comp Metabolic Dzo965 GLUCOSE 170 mg/dL 06/13/2022 Unkn own Comp Metabolic Bow593 Creat 0.8 mg/dL 06/13/2022 Unkn own Comp Metabolic Fcc030 eGFR 79 ml/min/1.73m2 06/13/20 22 Unknown Comp Metabolic Bkj333 BUN 15 mg/dL 06/13/2022 Unkn own Comp Metabolic Xfp118 B/C Ratio 20.0 Ratio 06/13/2022 Unk nown Comp Metabolic Iti471 CALCIUM 9.0 mg/dL 06/13/2022 Unkn own Comp Metabolic Mkw738 ALK PHOS 68 U/L 06/13/2022 Unkn own Comp Metabolic Afo678 AST(SGOT) 24 U/L 06/13/2022 Unkn own Comp Metabolic Nne419 ALT(SGPT) 19 U/L 06/13/2022 Unkn own Comp Metabolic Djs478 BILI T 0.9 mg/dL 06/13/2022 Unkn own Comp Metabolic Guk584 ALBUMIN 4.1 g/dL 06/13/2022 Unkn own Comp Metabolic Efo689 TPRO 6.5 g/dL 06/13/2022 Unkn own Comp Metabolic Oqc113 GLOB 2.4 g/dL 06/13/2022 Unkn own Comp Metabolic Ers630 A/G Ratio 1.7 Ratio 06/13/2022 Unkn own Comp Metabolic Ncl273 Osmo 284 mOsmo 06/13/2022 Unkn own Tsh Ord6 TSH (3rd IS) 4.97 uIU/mL 06/13/2022 Unkn own Free T4 Ucm651 FREE T4 1.23 ng/dL 06/13/2022 Unknown Comp Metabolic Odf327 NA 140 mEq/L 02/01/2022 Unkn own Comp Metabolic Mqm525 K 4.3 mEq/L 02/01/2022 Unkn own Comp Metabolic Xmh256 CL 103 mEq/L 02/01/2022 Unkn own Comp Metabolic Ekj738 CO2 29.0 mEq/L 02/01/2022 Unk nown Comp Metabolic Hke199 ANION GAP 12 02/01/2022 Unkn own Comp Metabolic Yss488 GLUCOSE 171 mg/dL 02/01/2022 Unkn own Comp Metabolic Aii971 Creat 0.9 mg/dL 02/01/2022 Unkn own Comp Metabolic Wxi846 eGFR 61 ml/min/1.73m2 02/02/20 22 Unknown Comp Metabolic Zpp411 BUN 15 mg/dL 02/01/2022 Unkn own Comp Metabolic Dvn724 B/C Ratio 16.0 Ratio 02/01/2022 Unk nown Comp Metabolic Lta384 CALCIUM 9.2 mg/dL 02/01/2022 Unkn own Comp Metabolic Mot508 ALK PHOS 68 U/L 02/01/2022 Unkn own Comp Metabolic Zft116 AST(SGOT) 22 U/L 02/01/2022 Unkn own Comp Metabolic Ulr355 ALT(SGPT) 25 U/L 02/01/2022 Unkn own Comp Metabolic Dyx088 BILI T 1.0 mg/dL 02/01/2022 Unkn own Comp Metabolic Gny776 ALBUMIN 4.1 g/dL 02/01/2022 Unkn own Comp Metabolic Cyh029 TPRO 6.5 g/dL 02/01/2022 Unkn own Comp Metabolic Rhq053 GLOB 2.4 g/dL 02/01/2022 Unkn own Comp Metabolic Vqq282 A/G Ratio 1.7 Ratio 02/01/2022 Unkn own Comp Metabolic Uzu625 Osmo 284 mOsmo 02/01/2022 Unkn own Tsh Ord6 TSH (3rd IS) 2.25 uIU/mL 02/01/2022 Unkn own Free T4 Vad368 FREE T4 1.68 ng/dL 02/01/2022 Unknown Cbc [...] 02/02/20 22 Unknown Cbc With Differential Ord2 Roberts% 10.9 % 02/02/20 22 Unknown Cbc With [...] K/ul 022 Unknown Cbc With Differential Ord2 Roberts ABS# 0.6 K/ul 02/02/20 22 Unknown Cbc [...] Ord30 C/HDL 3.7 Ratio 02/01/2022 Unknown %Hba1C Mme261 % HbA1c 81052-3 8.2 % 02/01/2022 Unknown %Hba1C Hab316 Gluc Ave 189 mg/dL 02/01/2022 Unknown MEAN GLUC 3120455 Calc Mean Gluc 140 mg/dL 03/28/2021 Unkn own A1C HPLC 8017349 Hgb A1c 19389-9 6.5 % 03/28/2021 Unknown FREE T4 4464513 T4 Free 1.06 ng/dL 03/25/2021 Unknown TSH 9135546 TSH 0.869 uIU/mL 03/25/2021 Unknow n LIPID GRP 6250349 CHOLESTEROL 182 mg/dL 03/25/2021 Unknown LIPID GRP [id number] Triglyceride 75 mg/dL 03/25/2021 Unknow n LIPID GRP [id number] HDL CHOLESTEROL 50 mg/dL 03/25/2021 Unk nown LIPID GRP 0502794 Chol/HDL Ratio 3.64 ratio 03/25/2021 Unk nown LIPID GRP 1826377 NON-HDL Chol 132 mg/dL 03/25/2021 Unknow n LIPID GRP 2655292 LDL Cholesterol 117 mg/dL 03/25/2021 Unk nown GFR CALC 3767821 GFR Non Afr Amr >60 mL/min 03/25/2021 Un known GFR CALC 8374886 GFR Afr Amr >60 mL/min 03/25/2021 Unknow n CBC 3619749 WBC 6.5 10e9/L 03/25/2021 Unknown CBC 9660904 RBC 4.96 10e12/L 03/25/2021 Unknow n CBC 9660857 HEMOGLOBIN 14.6 g/dL 03/25/2021 Unknown CBC 1911034 HEMATOCRIT 44.7 % 03/25/2021 Unknown CBC 1505237 MCV 90.1 fL 03/25/2021 Unknown CBC 1607766 MCH 29.4 pg 03/25/2021 Unknown CBC 1492970 MCHC 32.7 g/dL 03/25/2021 Unknown CBC 5374979 PLATELET COUNT 251 10e9/L 03/25/2021 Unk nown CBC 6142245 Mean Plt Volume 10.2 fL 03/25/2021 Unk nown CBC 2738578 Neut Auto 59.7 % 03/25/2021 Unknown CBC 7114540 Lymph Auto 21.0 % 03/25/2021 Unknown CBC 2630089 Roberts Auto 8.8 % 03/25/2021 Unknown CBC 1371575 RDW 14.6 % 03/25/2021 Unknown CBC 1983880 Eos Auto 9.3 % 03/25/2021 Unknown CBC 1208753 Baso Auto 1.2 % 03/25/2021 Unknown CBC 5315747 Neutrophil Abs 3.88 10e9/L 03/25/2021 Un known CBC 9463238 Lymphocyte Abs 1.36 10e9/L 03/25/2021 Un known CBC 9200279 Monocyte Abs 0.57 10e9/L 03/25/2021 Unkn own CBC 4865645 Eosinophil Abs 0.60 10e9/L 03/25/2021 Un known CBC 2956036 RDW-SD 47.2 fL 03/25/2021 Unknown CBC 4548326 Basophil Abs 0.08 10e9/L 03/25/2021 Unkn own CHEM 14 8609661 AST 20 U/L 03/25/2021 Unknown CHEM 14 4019910 ALT 18 U/L 03/25/2021 Unknown CHEM 14 5563615 BUN 17 mg/dL 03/25/2021 Unknown CHEM 14 8261582 ALBUMIN 3.9 g/dL 03/25/2021 Unknown CHEM 14 6143888 CHLORIDE 104 mmol/L 03/25/2021 Unknown CHEM 14 1939563 Bili Total 0.8 mg/dL 03/25/2021 Unknown CHEM 14 2119699 ALK PHOS 69 U/L 03/25/2021 Unknown CHEM 14 2698554 SODIUM 138 mmol/L 03/25/2021 Unknown CHEM 14 4602816 CREATININE 0.76 mg/dL 03/25/2021 Unknown CHEM 14 5557989 CALCIUM 9.5 mg/dL 03/25/2021 Unknown CHEM 14 7792696 POTASSIUM 4.2 mmol/L 03/25/2021 Unknown CHEM 14 3670007 TOTAL PROTEIN 7.0 g/dL 03/25/2021 Unkno wn CHEM 14 9835175 GLUCOSE 133 mg/dL 03/25/2021 Unknown CHEM 14 7132875 Bicarbonate 26 mmol/L 03/25/2021 Unknown CHEM 14 0480937 AGAP 8 mmol/L 03/25/2021 Unknown FREE T4 3860122 T4 Free 1.15 ng/dL 11/19/2020 Unknown A1C HPLC 4495672 Hgb A1c 36275-9 7.0 % 11/19/2020 Unknown LIPID GRP CHOLESTEROL 205 mg/dL 11/19/2020 Unknown LIPID GRP Triglyceride 100 mg/dL 11/19/2020 Unknow n LIPID GRP [id number] HDL CHOLESTEROL 54 mg/dL 11/19/2020 Unk nown LIPID GRP Chol/HDL Ratio 3.80 ratio 11/19/2020 Unk nown LIPID GRP NON-HDL Chol 151 mg/dL 11/19/2020 Unknow n LIPID GRP LDL Cholesterol 131 mg/dL 11/19/2020 Unk nown MEAN GLUC 5022432 Calc Mean Gluc 154 mg/dL 11/19/2020 Unkn own GFR CALC 3710370 GFR Non Afr Amr >60 mL/min 11/19/2020 Un known GFR CALC 0135331 GFR Afr Amr >60 mL/min 11/19/2020 Unknow n TSH 6217178 TSH 0.638 uIU/mL 11/19/2020 Unknow n CHEM 14 1249333 AST 22 U/L 11/19/2020 Unknown CHEM 14 6481492 ALT 20 U/L 11/19/2020 Unknown CHEM 14 3084192 BUN 18 mg/dL 11/19/2020 Unknown CHEM 14 5000607 ALBUMIN 4.1 g/dL 11/19/2020 Unknown CHEM 14 0569338 CHLORIDE 104 mmol/L 11/19/2020 Unknown CHEM 14 0308508 Bili Total 0.9 mg/dL 11/19/2020 Unknown CHEM 14 9205046 ALK PHOS 72 U/L 11/19/2020 Unknown CHEM 14 5973344 SODIUM 141 mmol/L 11/19/2020 Unknown CHEM 14 3895266 CREATININE 0.80 mg/dL 11/19/2020 Unknown CHEM 14 6936986 CALCIUM 9.6 mg/dL 11/19/2020 Unknown CHEM 14 8993975 POTASSIUM 4.4 mmol/L 11/19/2020 Unknown CHEM 14 6902643 TOTAL PROTEIN 7.2 g/dL 11/19/2020 Unkno wn CHEM 14 1109903 GLUCOSE 134 mg/dL 11/19/2020 Unknown CHEM 14 5270291 Bicarbonate 31 mmol/L 11/19/2020 Unknown CHEM 14 0810557 AGAP 6 mmol/L 11/19/2020 Unknown LIPID GRP CHOLESTEROL 199 mg/dL 03/29/2020 Unknown LIPID GRP Triglyceride 95 mg/dL 03/29/2020 Unknow n LIPID GRP HDL CHOLESTEROL 48 mg/dL 03/29/2020 Unk nown LIPID GRP Chol/HDL Ratio 4.15 ratio 03/29/2020 Unk nown LIPID GRP NON-HDL Chol 151 mg/dL 03/29/2020 Unknow n LIPID GRP LDL Cholesterol 132 mg/dL 03/29/2020 Unk nown CBC 2526704 WBC 5.1 10e9/L 03/29/2020 Unknown CBC 6138635 RBC 5.11 10e12/L 03/29/2020 Unknow n CBC 5692186 HEMOGLOBIN 14.4 g/dL 03/29/2020 Unknown CBC 3780379 HEMATOCRIT 44.9 % 03/29/2020 Unknown CBC 0097938 MCV 87.9 fL 03/29/2020 Unknown CBC 7917708 MCH 28.2 pg 03/29/2020 Unknown CBC 4126031 MCHC 32.1 g/dL 03/29/2020 Unknown CBC 8123690 PLATELET COUNT 239 10e9/L 03/29/2020 Unk nown CBC 2542837 Mean Plt Volume 10.2 fL 03/29/2020 Unk nown CBC 6257995 Neut Auto 51.8 % 03/29/2020 Unknown CBC 8197439 Lymph Auto 24.1 % 03/29/2020 Unknown CBC 6311407 Roberts Auto 12.9 % 03/29/2020 Unknown CBC 5116323 RDW 15.0 % 03/29/2020 Unknown CBC 7995326 Eos Auto 9.0 % 03/29/2020 Unknown CBC 0477928 Baso Auto 2.2 % 03/29/2020 Unknown CBC 0496503 Neutrophil Abs 2.64 10e9/L 03/29/2020 Un known CBC 0312602 Lymphocyte Abs 1.23 10e9/L 03/29/2020 Un known CBC 8111870 Monocyte Abs 0.66 10e9/L 03/29/2020 Unkn own CBC 1455687 Eosinophil Abs 0.46 10e9/L 03/29/2020 Un known CBC 4732200 RDW-SD 47.8 fL 03/29/2020 Unknown CBC 1425070 Basophil Abs 0.11 10e9/L 03/29/2020 Unkn own CHEM 14 7400440 AST 21 U/L 03/29/2020 Unknown CHEM 14 3343633 ALT 18 U/L 03/29/2020 Unknown CHEM 14 0388482 BUN 20 mg/dL 03/29/2020 Unknown CHEM 14 2392796 ALBUMIN 3.9 g/dL 03/29/2020 Unknown CHEM 14 7528542 CHLORIDE 103 mmol/L 03/29/2020 Unknown CHEM 14 5094013 Bili Total 0.6 mg/dL 03/29/2020 Unknown CHEM 14 9140488 ALK PHOS 76 U/L 03/29/2020 Unknown CHEM 14 9926148 SODIUM 141 mmol/L 03/29/2020 Unknown CHEM 14 2329170 CREATININE 0.91 mg/dL 03/29/2020 Unknown CHEM 14 0882568 CALCIUM 8.9 mg/dL 03/29/2020 Unknown CHEM 14 5268638 POTASSIUM 4.1 mmol/L 03/29/2020 Unknown CHEM 14 0410990 TOTAL PROTEIN 6.8 g/dL 03/29/2020 Unkno wn CHEM 14 5746776 GLUCOSE 137 mg/dL 03/29/2020 Unknown CHEM 14 2558310 Bicarbonate 28 mmol/L 03/29/2020 Unknown CHEM 14 0440022 AGAP 10 mmol/L 03/29/2020 Unknown A1C HPLC 1565461 Hgb A1c 17311-6 7.1 % 03/29/2020 Unknown GFR CALC 6435643 GFR Non Afr Amr 60 mL/min 03/29/2020 Unk nown GFR CALC 3654387 GFR Afr Amr >60 mL/min 03/29/2020 Unknow n MEAN GLUC 0355054 Calc Mean Gluc 157 mg/dL 03/29/2020 Unkn own GFR CALC 4936380 GFR Non Afr Amr >60 mL/min 11/27/2019 Un known GFR CALC 7843088 GFR Afr Amr >60 mL/min 11/27/2019 Unknow n CHEM 14 1052123 AST 14 U/L 11/27/2019 Unknown CHEM 14 1093576 ALT 12 U/L 11/27/2019 Unknown CHEM 14 7229163 BUN 17 mg/dL 11/27/2019 Unknown CHEM 14 0014597 ALBUMIN 4.0 g/dL 11/27/2019 Unknown CHEM 14 8863993 CHLORIDE 104 mmol/L 11/27/2019 Unknown CHEM 14 1901372 Bili Total 0.7 mg/dL 11/27/2019 Unknown CHEM 14 4842993 ALK PHOS 72 U/L 11/27/2019 Unknown CHEM 14 2088067 SODIUM 141 mmol/L 11/27/2019 Unknown CHEM 14 2084783 CREATININE 0.71 mg/dL 11/27/2019 Unknown CHEM 14 8274236 CALCIUM 9.1 mg/dL 11/27/2019 Unknown CHEM 14 3101691 POTASSIUM 3.9 mmol/L 11/27/2019 Unknown CHEM 14 5352381 TOTAL PROTEIN 6.7 g/dL 11/27/2019 Unkno wn CHEM 14 3016633 GLUCOSE 125 mg/dL 11/27/2019 Unknown CHEM 14 7917589 Bicarbonate 28 mmol/L 11/27/2019 Unknown CHEM 14 9426701 AGAP 9 mmol/L 11/27/2019 Unknown MEAN GLUC 3691364 Calc Mean Gluc 154 mg/dL 11/27/2019 Unkn own A1C HPLC 2254111 Hgb A1c 14336-2 7.0 % 11/27/2019 Unknown FREE T4 5301652 T4 Free 1.16 ng/dL 09/02/2019 Unknown CHEM 14 0851661 AST 13 U/L 09/02/2019 Unknown CHEM 14 7537870 ALT 11 U/L 09/02/2019 Unknown CHEM 14 6662247 BUN 17 mg/dL 09/02/2019 Unknown CHEM 14 3683532 ALBUMIN 4.0 g/dL 09/02/2019 Unknown CHEM 14 0273612 CHLORIDE 103 mmol/L 09/02/2019 Unknown CHEM 14 3935932 Bili Total 0.8 mg/dL 09/02/2019 Unknown CHEM 14 7713137 ALK PHOS 72 U/L 09/02/2019 Unknown CHEM 14 1766746 SODIUM 141 mmol/L 09/02/2019 Unknown CHEM 14 2213807 CREATININE 0.67 mg/dL 09/02/2019 Unknown CHEM 14 8224647 CALCIUM 9.4 mg/dL 09/02/2019 Unknown CHEM 14 4543662 POTASSIUM 3.9 mmol/L 09/02/2019 Unknown CHEM 14 3861282 TOTAL PROTEIN 6.6 g/dL 09/02/2019 Unkno wn CHEM 14 4214450 GLUCOSE 139 mg/dL 09/02/2019 Unknown CHEM 14 3803480 Bicarbonate 29 mmol/L 09/02/2019 Unknown CHEM 14 4260289 AGAP 9 mmol/L 09/02/2019 Unknown TSH 6203586 TSH 2.111 uIU/mL 09/02/2019 Unknow n A1C HPLC 7114677 Hgb A1c 49900-7 8.1 % 09/02/2019 Unknown LIPID GRP CHOLESTEROL 194 mg/dL 09/02/2019 Unknown LIPID GRP Triglyceride 96 mg/dL 09/02/2019 Unknow n LIPID GRP HDL CHOLESTEROL 54 mg/dL 09/02/2019 Unk nown LIPID GRP Chol/HDL Ratio 3.59 ratio 09/02/2019 Unk nown LIPID GRP NON-HDL Chol 140 mg/dL 09/02/2019 Unknow n LIPID GRP LDL Cholesterol 121 mg/dL 09/02/2019 Unk nown CBC 1854411 WBC 6.2 10e9/L 09/02/2019 Unknown CBC 6886887 RBC 4.93 10e12/L 09/02/2019 Unknow n CBC 2551790 HEMOGLOBIN 14.0 g/dL 09/02/2019 Unknown CBC 4557675 HEMATOCRIT 44.5 % 09/02/2019 Unknown CBC 4649905 MCV 90.3 fL 09/02/2019 Unknown CBC 5489349 MCH 28.4 pg 09/02/2019 Unknown CBC 2280304 MCHC 31.5 g/dL 09/02/2019 Unknown CBC 3764565 PLATELET COUNT 264 10e9/L 09/02/2019 Unk nown CBC 7345972 Mean Plt Volume 10.7 fL 09/02/2019 Unk nown CBC 8418126 Neut Auto 55.6 % 09/02/2019 Unknown CBC 6136338 Lymph Auto 25.7 % 09/02/2019 Unknown CBC 8730834 Roberts Auto 9.2 % 09/02/2019 Unknown CBC 5950560 RDW 15.0 % 09/02/2019 Unknown CBC 3459047 Eos Auto 8.5 % 09/02/2019 Unknown CBC 7248740 Baso Auto 1.0 % 09/02/2019 Unknown CBC 6687795 Neutrophil Abs 3.45 10e9/L 09/02/2019 Un known CBC 1040462 Lymphocyte Abs 1.59 10e9/L 09/02/2019 Un known CBC 8802009 Monocyte Abs 0.57 10e9/L 09/02/2019 Unkn own CBC 2766956 Eosinophil Abs 0.53 10e9/L 09/02/2019 Un known CBC 3575555 RDW-SD 48.9 fL 09/02/2019 Unknown CBC 3377192 Basophil Abs 0.06 10e9/L 09/02/2019 Unkn own CHEM 14 0207983 AST 15 U/L 04/30/2019 Unknown CHEM 14 4640540 ALT 13 U/L 04/30/2019 Unknown CHEM 14 3122580 BUN 16 mg/dL 04/30/2019 Unknown CHEM 14 0189718 ALBUMIN 4.1 g/dL 04/30/2019 Unknown CHEM 14 0630982 CHLORIDE 102 mmol/L 04/30/2019 Unknown CHEM 14 3583923 Bili Total 0.7 mg/dL 04/30/2019 Unknown CHEM 14 7798474 ALK PHOS 71 U/L 04/30/2019 Unknown CHEM 14 4805880 SODIUM 140 mmol/L 04/30/2019 Unknown CHEM 14 1280567 CREATININE 0.75 mg/dL 04/30/2019 Unknown CHEM 14 8550352 CALCIUM 9.2 mg/dL 04/30/2019 Unknown CHEM 14 6679480 POTASSIUM 3.9 mmol/L 04/30/2019 Unknown CHEM 14 4754369 TOTAL PROTEIN 6.6 g/dL 04/30/2019 Unkno wn CHEM 14 6148697 GLUCOSE 160 mg/dL 04/30/2019 Unknown CHEM 14 4210394 Bicarbonate 31 mmol/L 04/30/2019 Unknown CHEM 14 2479723 AGAP 7 mmol/L 04/30/2019 Unknown A1C HPLC 9513622 Hgb A1c 09857-3 7.9 % 04/30/2019 Unknown TSH 7979095 TSH 1.728 uIU/mL 04/30/2019 Unknow n MEAN GLUC 8534184 Calc Mean Gluc 180 mg/dL 04/30/2019 Unkn own GFR CALC 7083459 GFR Non Afr Amr >60 mL/min 04/30/2019 Un known GFR CALC 5645244 GFR Afr Amr >60 mL/min 04/30/2019 Unknow n FREE T4 3315798 T4 Free 1.00 ng/dL 04/30/2019 Unknown MEAN GLUC 8203437 Calc Mean Gluc 206 mg/dL 01/13/2019 Unkn own GFR CALC 4653751 GFR Non Afr Amr >60 mL/min 01/13/2019 Un known GFR CALC 6286099 GFR Afr Amr >60 mL/min 01/13/2019 Unknow n LIPID GRP CHOLESTEROL 184 mg/dL 01/13/2019 Unknown LIPID GRP Triglyceride 84 mg/dL 01/13/2019 Unknow n LIPID GRP HDL CHOLESTEROL 51 mg/dL 01/13/2019 Unk nown LIPID GRP Chol/HDL Ratio 3.61 ratio 01/13/2019 Unk nown LIPID GRP NON-HDL Chol 133 mg/dL 01/13/2019 Unknow n LIPID GRP LDL Cholesterol 116 mg/dL 01/13/2019 Unk nown FREE T4 2445366 T4 Free 1.15 ng/dL 01/13/2019 Unknown CHEM 14 6779148 AST 13 U/L 01/13/2019 Unknown CHEM 14 2958957 ALT 12 U/L 01/13/2019 Unknown CHEM 14 0159278 BUN 19 mg/dL 01/13/2019 Unknown CHEM 14 5092242 ALBUMIN 4.0 g/dL 01/13/2019 Unknown CHEM 14 9927281 CHLORIDE 104 mmol/L 01/13/2019 Unknown CHEM 14 3786843 Bili Total 0.5 mg/dL 01/13/2019 Unknown CHEM 14 0106233 ALK PHOS 73 U/L 01/13/2019 Unknown CHEM 14 6233491 SODIUM 139 mmol/L 01/13/2019 Unknown CHEM 14 6282609 CREATININE 0.68 mg/dL 01/13/2019 Unknown CHEM 14 0200914 CALCIUM 9.4 mg/dL 01/13/2019 Unknown CHEM 14 5492263 POTASSIUM 4.1 mmol/L 01/13/2019 Unknown CHEM 14 3399990 TOTAL PROTEIN 6.4 g/dL 01/13/2019 Unkno wn CHEM 14 3239004 GLUCOSE 194 mg/dL 01/13/2019 Unknown CHEM 14 2365484 Bicarbonate 31 mmol/L 01/13/2019 Unknown CHEM 14 6515050 AGAP 4 mmol/L 01/13/2019 Unknown CBC 5477452 WBC 6.4 10e9/L 01/13/2019 Unknown CBC 2498325 RBC 4.85 10e12/L 01/13/2019 Unknow n CBC 0002962 HEMOGLOBIN 13.8 g/dL 01/13/2019 Unknown CBC 9909387 HEMATOCRIT 43.5 % 01/13/2019 Unknown CBC 0037192 MCV 89.7 fL 01/13/2019 Unknown CBC 9570303 MCH 28.5 pg 01/13/2019 Unknown CBC 3460633 MCHC 31.7 g/dL 01/13/2019 Unknown CBC 0219395 PLATELET COUNT 283 10e9/L 01/13/2019 Unk nown CBC 9108872 Mean Plt Volume 10.6 fL 01/13/2019 Unk nown CBC 2241876 Neut Auto 56.2 % 01/13/2019 Unknown CBC 4440044 Lymph Auto 21.7 % 01/13/2019 Unknown CBC 4219512 Roberts Auto 10.0 % 01/13/2019 Unknown CBC 1341004 Eos Auto 11.3 % 01/13/2019 Unknown CBC 7207695 RDW 14.9 % 01/13/2019 Unknown CBC 8069031 Baso Auto 0.8 % 01/13/2019 Unknown CBC 8155634 Neutrophil Abs 3.60 10e9/L 01/13/2019 Un known CBC 8171778 Lymphocyte Abs 1.39 10e9/L 01/13/2019 Un known CBC 4385447 Monocyte Abs 0.64 10e9/L 01/13/2019 Unkn own CBC 4738982 Eosinophil Abs 0.72 10e9/L 01/13/2019 Un known CBC 5818596 RDW-SD 47.9 fL 01/13/2019 Unknown CBC 7397935 Basophil Abs 0.05 10e9/L 01/13/2019 Unkn own A1C HPLC 7414685 Hgb A1c 16185-1 8.8 % 01/13/2019 Unknown TSH 6169245 TSH 0.966 uIU/mL 01/13/2019 Unknow n A1C HPLC 0368238 Hgb A1c 06254-9 7.9 % 09/11/2018 Unknown CBC 0598591 WBC 5.6 10e9/L 09/11/2018 Unknown CBC 9049126 RBC 5.07 10e12/L 09/11/2018 Unknow n CBC 7942376 HEMOGLOBIN 13.7 g/dL 09/11/2018 Unknown CBC 5450891 HEMATOCRIT 43.9 % 09/11/2018 Unknown CBC 9687821 MCV 86.6 fL 09/11/2018 Unknown CBC 4206153 MCH 27.0 pg 09/11/2018 Unknown CBC 0384447 MCHC 31.2 g/dL 09/11/2018 Unknown CBC 3340875 PLATELET COUNT 282 10e9/L 09/11/2018 Unk nown CBC 1618718 Mean Plt Volume 10.3 fL 09/11/2018 Unk nown CBC 1813345 Neut Auto 46.8 % 09/11/2018 Unknown CBC 3040935 Lymph Auto 28.0 % 09/11/2018 Unknown CBC 3298529 Roberts Auto 10.5 % 09/11/2018 Unknown CBC 7181301 RDW 15.9 % 09/11/2018 Unknown CBC 3368511 Eos Auto 12.9 % 09/11/2018 Unknown CBC 0543987 Baso Auto 1.8 % 09/11/2018 Unknown CBC 1462265 Neutrophil Abs 2.62 10e9/L 09/11/2018 Un known CBC 9607652 Lymphocyte Abs 1.57 10e9/L 09/11/2018 Un known CBC 3322404 Monocyte Abs 0.59 10e9/L 09/11/2018 Unkn own CBC 2670412 Eosinophil Abs 0.72 10e9/L 09/11/2018 Un known CBC 5520975 RDW-SD 49.6 fL 09/11/2018 Unknown CBC 3509242 Basophil Abs 0.10 10e9/L 09/11/2018 Unkn own CHEM 14 6743498 AST 17 U/L 09/11/2018 Unknown CHEM 14 0608047 ALT 14 U/L 09/11/2018 Unknown CHEM 14 8779152 BUN 20 mg/dL 09/11/2018 Unknown CHEM 14 4772741 ALBUMIN 3.8 g/dL 09/11/2018 Unknown CHEM 14 7160761 CHLORIDE 104 mmol/L 09/11/2018 Unknown CHEM 14 5360248 Bili Total 0.7 mg/dL 09/11/2018 Unknown CHEM 14 [id number] ALK PHOS 64 U/L 09/11/2018 Unknown CHEM 14 4020424 SODIUM 143 mmol/L 09/11/2018 Unknown CHEM 14 6569948 CREATININE 0.75 mg/dL 09/11/2018 Unknown CHEM 14 [id number] CALCIUM 9.3 mg/dL 09/11/2018 Unknown CHEM 14 3183085 POTASSIUM 4.3 mmol/L 09/11/2018 Unknown CHEM 14 5922009 TOTAL PROTEIN 6.5 g/dL 09/11/2018 Unkno wn CHEM 14 4684844 GLUCOSE 174 mg/dL 09/11/2018 Unknown CHEM 14 2455261 Bicarbonate 31 mmol/L 09/11/2018 Unknown CHEM 14 [id number] AGAP 8 mmol/L 09/11/2018 Unknown FREE T4 [id number] T4 Free 1.16 ng/dL 09/11/2018 Unknown MEAN GLUC 6551700 Calc Mean Gluc 180 mg/dL 09/11/2018 Unkn own TSH 6100256 TSH 1.080 uIU/mL 09/11/2018 Unknow n GFR CALC 0815464 GFR Non Afr Amr >60 mL/min 09/11/2018 Un known GFR CALC 8688679 GFR Afr Amr >60 mL/min 09/11/2018 Unknow n Free T4 [id number] FREE T4 1.66 ng/dL 05/09/2018 Unknown Tsh [...] 05/09/20 18 Unknown Cbc With Differential Ord2 Roberts% 11.6 % 05/09/20 18 Unknown Cbc With [...] K/ul 018 Unknown Cbc With Differential Ord2 Roberts ABS# 0.8 K/ul 05/09/20 18 Unknown Cbc [...] Ord15 CALCIUM 9.3 mg/dL 05/09/2018 Unknown %Hba1C Vtx428 % HbA1c 60970-6 8.9 % 05/09/2018 Unknown %Hba1C Qho294 Gluc Ave 209 mg/dL 05/09/2018 Unknown LIPID GRP [id number] CHOLESTEROL 184 mg/dL 01/14/2018 Unknown LIPID GRP [id number] Triglyceride 65 mg/dL 01/14/2018 Unknow n LIPID GRP [id number] HDL CHOLESTEROL 53 mg/dL 01/14/2018 Unk nown LIPID GRP 2368360 Chol/HDL Ratio 3.47 ratio 01/14/2018 Unk nown LIPID GRP 9771639 NON-HDL Chol 131 mg/dL 01/14/2018 Unknow n LIPID GRP [id number] LDL Cholesterol 118 mg/dL 01/14/2018 Unk nown A1C HPLC 8759740 Hgb A1c 07705-6 6.5 % 01/14/2018 Unknown CBC 9904793 WBC 5.8 10e9/L 01/14/2018 Unknown CBC 1342229 RBC 4.67 10e12/L 01/14/2018 Unknow n CBC 3753905 HEMOGLOBIN 12.4 g/dL 01/14/2018 Unknown CBC 7213056 HEMATOCRIT 40.6 % 01/14/2018 Unknown CBC 4718248 MCV 86.9 fL 01/14/2018 Unknown CBC 4914360 MCH 26.6 pg 01/14/2018 Unknown CBC 9182605 MCHC 30.5 g/dL 01/14/2018 Unknown CBC 9111534 PLATELET COUNT 419 10e9/L 01/14/2018 Unk nown CBC 4127824 Mean Plt Volume 10.1 fL 01/14/2018 Unk nown CBC 6911399 Neut Auto 60.7 % 01/14/2018 Unknown CBC 2941564 Lymph Auto 24.8 % 01/14/2018 Unknown CBC 5455543 Roberts Auto 9.7 % 01/14/2018 Unknown CBC 4304261 RDW 25.0 % 01/14/2018 Unknown CBC 9075135 Eos Auto 3.4 % 01/14/2018 Unknown CBC 9544776 Baso Auto 1.4 % 01/14/2018 Unknown CBC 6512579 Neutrophil Abs 3.52 10e9/L 01/14/2018 Un known CBC 1433023 Lymphocyte Abs 1.44 10e9/L 01/14/2018 Un known CBC 9799058 Monocyte Abs 0.56 10e9/L 01/14/2018 Unkn own CBC 2234746 Eosinophil Abs 0.20 10e9/L 01/14/2018 Un known CBC 8494093 RDW-SD 75.4 fL 01/14/2018 Unknown CBC 0442726 Basophil Abs 0.08 10e9/L 01/14/2018 Unkn own MEAN GLUC 6624651 Calc Mean Gluc 140 mg/dL 01/14/2018 Unkn own Culture Urine [id number] URINE CULTURE SEE NOTES 01/03/2018 Unknown Culture Urine [id number] Continued Results 01/04/20 18 Unknown Urine Culture [...] 11/21/19 18 Unknown Cbc With Differential Ord2 Roberts% 7.9 % 11/21/19 18 Unknown Cbc With [...] K/ul 018 Unknown Cbc With Differential Ord2 Roberts ABS# 0.7 K/ul 11/21/19 18 Unknown Cbc With Differential Ord2 Eos ABS# 0.3 K/ul 11/21/19 18 Unknown Cbc With Differential Ord2 Baso ABS# 0.1 K/ul 11/21/19 18 Unknown Comp Metabolic Ezn245 NA 142 mEq/L 11/20/2017 Unkn own Comp Metabolic [id number] K 4.1 mEq/L 11/20/2017 Unkn own Comp Metabolic [id number] CL 104 mEq/L 11/20/2017 Unkn own Comp Metabolic Aua372 CO2 29.0 mEq/L 11/20/2017 Unk nown Comp Metabolic Qpr189 ANION GAP 13 11/20/2017 Unkn own Comp Metabolic Qbo830 GLUCOSE 178 mg/dL 11/20/2017 Unkn own Comp Metabolic Khy493 Creat 0.6 mg/dL 11/20/2017 Unkn own Comp Metabolic Hsu656 eGFR 112 ml/min/1.73m2 018 Unknown Comp Metabolic Jbe541 BUN 19 mg/dL 11/20/2017 Unkn own Comp Metabolic Nkm582 B/C Ratio 33.9 Ratio 11/20/2017 Unk nown Comp Metabolic Clx092 CALCIUM 9.3 mg/dL 11/20/2017 Unkn own Comp Metabolic Ned373 ALK PHOS 60 U/L 11/20/2017 Unkn own Comp Metabolic Unb840 AST(SGOT) 13 U/L 11/20/2017 Unkn own Comp Metabolic Xyg954 ALT(SGPT) 14 U/L 11/20/2017 Unkn own Comp Metabolic Mhf733 BILI T 0.4 mg/dL 11/20/2017 Unkn own Comp Metabolic Hva264 ALBUMIN 4.1 g/dL 11/20/2017 Unkn own Comp Metabolic Ara973 TPRO 6.0 g/dL 11/20/2017 Unkn own Comp Metabolic Ozq788 GLOB 1.9 g/dL 11/20/2017 Unkn own Comp Metabolic Trn882 A/G Ratio 2.2 Ratio 11/20/2017 Unkn own Comp Metabolic Wfs565 Osmo 290 mOsmo 11/20/2017 Unkn own Cbc [...] 11/14/19 18 Unknown Cbc With Differential Ord2 Roberts% 7.8 % 11/14/19 18 Unknown Cbc With [...] K/ul 018 Unknown Cbc With Differential Ord2 Roberts ABS# 0.8 K/ul 11/14/19 18 Unknown Cbc With Differential Ord2 Eos ABS# 0.3 K/ul 11/14/19 18 Unknown Cbc With Differential Ord2 Baso ABS# 0.1 K/ul 11/14/19 18 Unknown Comp Metabolic Lxu889 NA 142 mEq/L 11/13/2017 Unkn own Comp Metabolic Zsa701 K 4.2 mEq/L 11/13/2017 Unkn own Comp Metabolic Mbf429 CL 104 mEq/L 11/13/2017 Unkn own Comp Metabolic Qhp034 CO2 26.0 mEq/L 11/13/2017 Unk nown Comp Metabolic Sub853 ANION GAP 16 11/13/2017 Unkn own Comp Metabolic Vnv389 GLUCOSE 115 mg/dL 11/13/2017 Unkn own Comp Metabolic Ygx763 Creat 0.6 mg/dL 11/13/2017 Unkn own Comp Metabolic Spm439 eGFR 114 ml/min/1.73m2 018 Unknown Comp Metabolic Tsm558 BUN 15 mg/dL 11/13/2017 Unkn own Comp Metabolic Sxx543 B/C Ratio 27.3 Ratio 11/13/2017 Unk nown Comp Metabolic Qfn603 CALCIUM 9.2 mg/dL 11/13/2017 Unkn own Comp Metabolic Rnq518 ALK PHOS 59 U/L 11/13/2017 Unkn own Comp Metabolic Quj104 AST(SGOT) 12 U/L 11/13/2017 Unkn own Comp Metabolic Imn624 ALT(SGPT) 13 U/L 11/13/2017 Unkn own Comp Metabolic Tbo580 BILI T 0.5 mg/dL 11/13/2017 Unkn own Comp Metabolic Qwq166 ALBUMIN 4.0 g/dL 11/13/2017 Unkn own Comp Metabolic Exh242 TPRO 6.0 g/dL 11/13/2017 Unkn own Comp Metabolic Kgf668 GLOB 2.0 g/dL 11/13/2017 Unkn own Comp Metabolic Ojz770 A/G Ratio 2.0 Ratio 11/13/2017 Unkn own Comp Metabolic Hhc854 Osmo 285 mOsmo 11/13/2017 Unkn own Cbc [...] 09/21/19 18 Unknown Cbc With Differential Ord2 Roberts% 9.9 % 09/21/19 18 Unknown Cbc With [...] K/ul 018 Unknown Cbc With Differential Ord2 Roberts ABS# 0.9 K/ul 09/21/19 18 Unknown Cbc With Differential Ord2 Eos ABS# 0.4 K/ul 09/21/19 18 Unknown Cbc With Differential Ord2 Baso ABS# 0.1 K/ul 09/21/19 18 Unknown Comp Metabolic Rbt793 NA 138 mEq/L 09/20/2017 Unkn own Comp Metabolic Sgn767 K 4.0 mEq/L 09/20/2017 Unkn own Comp Metabolic Gvh614 CL 99 mEq/L 09/20/2017 Unkn own Comp Metabolic Gkt260 CO2 26.0 mEq/L 09/20/2017 Unk nown Comp Metabolic Uio103 ANION GAP 17 09/20/2017 Unkn own Comp Metabolic Mop836 GLUCOSE 275 mg/dL 09/20/2017 Unkn own Comp Metabolic Ldf216 Creat 0.6 mg/dL 09/20/2017 Unkn own Comp Metabolic Ozj825 eGFR 96 ml/min/1.73m2 09/21/19 18 Unknown Comp Metabolic Iym566 BUN 17 mg/dL 09/20/2017 Unkn own Comp Metabolic Bmd835 B/C Ratio 26.6 Ratio 09/20/2017 Unk nown Comp Metabolic Dbx295 CALCIUM 9.5 mg/dL 09/20/2017 Unkn own Comp Metabolic Sum764 ALK PHOS 57 U/L 09/20/2017 Unkn own Comp Metabolic Uvv556 AST(SGOT) 13 U/L 09/20/2017 Unkn own Comp Metabolic Dqx338 ALT(SGPT) 13 U/L 09/20/2017 Unkn own Comp Metabolic Kik016 BILI T 0.5 mg/dL 09/20/2017 Unkn own Comp Metabolic Nyh135 ALBUMIN 4.1 g/dL 09/20/2017 Unkn own Comp Metabolic Pyr901 TPRO 5.9 g/dL 09/20/2017 Unkn own Comp Metabolic Rfb940 GLOB 1.8 g/dL 09/20/2017 Unkn own Comp Metabolic Dyh850 A/G Ratio 2.3 Ratio 09/20/2017 Unkn own Comp Metabolic Omd556 Osmo 287 mOsmo 09/20/2017 Unkn own %Hba1C Snr070 % HbA1c 69574-0 7.2 % 09/20/2017 Unknown %Hba1C Raq212 Gluc Ave 160 mg/dL 09/20/2017 Unknown MEAN GLUC 9384041 Calc Mean Gluc 169 mg/dL 02/28/2017 Unkn own CBC 3335497 WBC 7.6 10e9/L 02/28/2017 Unknown CBC 8912632 RBC 4.91 10e12/L 02/28/2017 Unknow n CBC 9095345 HEMOGLOBIN 13.2 g/dL 02/28/2017 Unknown CBC 5182719 HEMATOCRIT 42.7 % 02/28/2017 Unknown CBC 5031402 MCV 87.0 fL 02/28/2017 Unknown CBC 3636279 MCH 26.9 pg 02/28/2017 Unknown CBC [id number] MCHC 30.9 g/dL 02/28/2017 Unknown CBC 8560460 PLATELET COUNT 341 10e9/L 02/28/2017 Unk nown CBC 7981355 Mean Plt Volume 10.7 fL 02/28/2017 Unk nown CBC 7972297 Neut Auto 62.1 % 02/28/2017 Unknown CBC 6015583 Lymph Auto 20.2 % 02/28/2017 Unknown CBC 9290474 Roberts Auto 9.3 % 02/28/2017 Unknown CBC 0272271 RDW 15.8 % 02/28/2017 Unknown CBC 0120003 Eos Auto 7.1 % 02/28/2017 Unknown CBC 3953412 Baso Auto 1.3 % 02/28/2017 Unknown CBC 5779857 Neutrophil Abs 4.72 10e9/L 02/28/2017 Un known CBC 7651523 Lymphocyte Abs 1.54 10e9/L 02/28/2017 Un known CBC 5675783 Monocyte Abs 0.71 10e9/L 02/28/2017 Unkn own CBC 1155301 Eosinophil Abs 0.54 10e9/L 02/28/2017 Un known CBC 3754957 RDW-SD 49.0 fL 02/28/2017 Unknown CBC 0712960 Basophil Abs 0.10 10e9/L 02/28/2017 Unkn own LIPID GRP 2301649 CHOLESTEROL 189 mg/dL 02/28/2017 Unknown LIPID GRP 0609414 Triglyceride 124 mg/dL 02/28/2017 Unknow n LIPID GRP 2270597 HDL CHOLESTEROL 43 mg/dL 02/28/2017 Unk nown LIPID GRP 4305798 Chol/HDL Ratio 4.40 ratio 02/28/2017 Unk nown LIPID GRP NON-HDL Chol 146 mg/dL 02/28/2017 Unknow n LIPID GRP 5639698 LDL Cholesterol 121 mg/dL 02/28/2017 Unsawyer chenn A1C HPLC 7241157 Hgb A1c 50182-9 7.5 % 02/28/2017 Unknown GFR CALC 0717577 GFR Non Afr Amr >60 mL/min 02/28/2017 Un known GFR CALC 4401243 GFR Afr Amr >60 mL/min 02/28/2017 Unknow n CHEM 14 5867410 AST 15 U/L 02/28/2017 Unknown CHEM 14 9923816 ALT 16 U/L 02/28/2017 Unknown CHEM 14 1451582 BUN 18 mg/dL 02/28/2017 Unknown CHEM 14 4692329 ALBUMIN 4.0 g/dL 02/28/2017 Unknown CHEM 14 6346097 CHLORIDE 104 mmol/L 02/28/2017 Unknown CHEM 14 3406768 Bili Total 0.6 mg/dL 02/28/2017 Unknown CHEM 14 7526164 ALK PHOS 53 U/L 02/28/2017 Unknown CHEM 14 5477703 SODIUM 143 mmol/L 02/28/2017 Unknown CHEM 14 8814428 CREATININE 0.66 mg/dL 02/28/2017 Unknown CHEM 14 1047581 CALCIUM 9.2 mg/dL 02/28/2017 Unknown CHEM 14 8271762 POTASSIUM 3.9 mmol/L 02/28/2017 Unknown CHEM 14 9966296 TOTAL PROTEIN 6.6 g/dL 02/28/2017 Unkno wn CHEM 14 3973607 GLUCOSE 146 mg/dL 02/28/2017 Unknown CHEM 14 4161828 Bicarbonate 30 mmol/L 02/28/2017 Unknown CHEM 14 5871917 AGAP 9 mmol/L 02/28/2017 Unknown CBC 8614378 WBC 6.8 10e9/L 08/21/2016 Unknown CBC 6642066 RBC 4.87 10e12/L 08/21/2016 Unknow n CBC 5607436 HEMOGLOBIN 12.7 g/dL 08/21/2016 Unknown CBC 3366740 HEMATOCRIT 40.5 % 08/21/2016 Unknown CBC 4492317 MCV 83.2 fL 08/21/2016 Unknown CBC 2803825 MCH 26.1 pg 08/21/2016 Unknown CBC 9522337 MCHC 31.4 g/dL 08/21/2016 Unknown CBC 2192006 PLATELET COUNT 334 10e9/L 08/21/2016 Unk nown CBC 1001758 Mean Plt Volume 10.5 fL 08/21/2016 Unk nown CBC 6024716 Neut Auto 56.4 % 08/21/2016 Unknown CBC 9812359 Lymph Auto 23.5 % 08/21/2016 Unknown CBC 2471331 Roberts Auto 9.7 % 08/21/2016 Unknown CBC 1068806 RDW 16.6 % 08/21/2016 Unknown CBC 0014706 Eos Auto 9.5 % 08/21/2016 Unknown CBC 7360003 Baso Auto 0.9 % 08/21/2016 Unknown CBC 0369525 Neutrophil Abs 3.84 10e9/L 08/21/2016 Un known CBC 4663289 Lymphocyte Abs 1.60 10e9/L 08/21/2016 Un known CBC 3813620 Monocyte Abs 0.66 10e9/L 08/21/2016 Unkn own CBC 2443124 Eosinophil Abs 0.65 10e9/L 08/21/2016 Un known CBC 3020419 RDW-SD 49.7 fL 08/21/2016 Unknown CBC 6332786 Basophil Abs 0.06 10e9/L 08/21/2016 Unkn own FREE T4 1446785 T4 Free 1.39 ng/dL 08/21/2016 Unknown LIPID GRP 4317231 CHOLESTEROL 211 mg/dL 08/21/2016 Unknown LIPID GRP 0695635 Triglyceride 105 mg/dL 08/21/2016 Unknow n LIPID GRP 7798177 HDL CHOLESTEROL 45 mg/dL 08/21/2016 Unk nown LIPID GRP 5073639 Chol/HDL Ratio 4.69 ratio 08/21/2016 Unk nown LIPID GRP 7874111 NON-HDL Chol 166 mg/dL 08/21/2016 Unknow n LIPID GRP 9268061 LDL Cholesterol 145 mg/dL 08/21/2016 Unk nown A1C HPLC 1395574 Hgb A1c 53828-2 7.4 % 08/21/2016 Unknown GFR CALC 3597103 GFR Non Afr Amr >60 mL/min 08/21/2016 Un known GFR CALC 4300028 GFR Afr Amr >60 mL/min 08/21/2016 Unknow n CHEM 14 20280111 AST 16 U/L 08/21/2016 Unknown CHEM 14 4744468 ALT 14 U/L 08/21/2016 Unknown CHEM 14 20280111 BUN 14 mg/dL 08/21/2016 Unknown CHEM 14 8134547 ALBUMIN 4.1 g/dL 08/21/2016 Unknown CHEM 14 8428975 CHLORIDE 105 mmol/L 08/21/2016 Unknown CHEM 14 7345387 Bili Total 0.5 mg/dL 08/21/2016 Unknown CHEM 14 5706931 ALK PHOS 53 U/L 08/21/2016 Unknown CHEM 14 0040327 SODIUM 141 mmol/L 08/21/2016 Unknown CHEM 14 8628766 CREATININE 0.66 mg/dL 08/21/2016 Unknown CHEM 14 1732226 CALCIUM 9.3 mg/dL 08/21/2016 Unknown CHEM 14 9717671 POTASSIUM 4.0 mmol/L 08/21/2016 Unknown CHEM 14 0792728 TOTAL PROTEIN 6.6 g/dL 08/21/2016 Unkno wn CHEM 14 0056890 GLUCOSE 145 mg/dL 08/21/2016 Unknown CHEM 14 1255553 Bicarbonate 29 mmol/L 08/21/2016 Unknown CHEM 14 2566103 AGAP 7 mmol/L 08/21/2016 Unknown TSH 3523721 TSH 1.485 uIU/mL 08/21/2016 Unknow n MEAN GLUC 5112914 Calc Mean Gluc 166 mg/dL 08/21/2016 Unkn [...] 04/24/20 16 Unknown Cbc With Differential Ord2 Roberts% 10.9 % 04/24/20 16 Unknown Cbc With [...] K/ul 016 Unknown Cbc With Differential Ord2 Roberts ABS# 0.7 K/ul 04/24/20 16 Unknown Cbc With Differential Ord2 Eos ABS# 0.7 K/ul 04/24/20 16 Unknown Cbc With Differential Ord2 Baso ABS# 0.1 K/ul 04/24/20 16 Unknown Comp Metabolic Lay507 NA 138 mEq/L 04/24/2016 Unkn own Comp Metabolic Psm309 K 4.3 mEq/L 04/24/2016 Unkn own Comp Metabolic Ltv203 CL 103 mEq/L 04/24/2016 Unkn own Comp Metabolic Tud765 CO2 28.0 mEq/L 04/24/2016 Unk nown Comp Metabolic Quj544 ANION GAP 11 04/24/2016 Unkn own Comp Metabolic Bxw086 GLUCOSE 138 mg/dL 04/24/2016 Unkn own Comp Metabolic Oiv853 Creat 0.6 mg/dL 04/24/2016 Unkn own Comp Metabolic Bdc328 eGFR 98 ml/min/1.73m2 04/24/20 16 Unknown Comp Metabolic Ooa051 BUN 16 mg/dL 04/24/2016 Unkn own Comp Metabolic Tgl685 B/C Ratio 25.4 Ratio 04/24/2016 Unk nown Comp Metabolic Fwv653 CALCIUM 9.2 mg/dL 04/24/2016 Unkn own Comp Metabolic Xtt303 ALK PHOS 55 U/L 04/24/2016 Unkn own Comp Metabolic Xli493 AST(SGOT) 16 U/L 04/24/2016 Unkn own Comp Metabolic Mdg056 ALT(SGPT) 16 U/L 04/24/2016 Unkn own Comp Metabolic Ruh272 BILI T 0.6 mg/dL 04/24/2016 Unkn own Comp Metabolic Siz466 ALBUMIN 3.9 g/dL 04/24/2016 Unkn own Comp Metabolic Xsw024 TPRO 6.1 g/dL 04/24/2016 Unkn own Comp Metabolic Vqb309 GLOB 2.2 g/dL 04/24/2016 Unkn own Comp Metabolic Sfa471 A/G Ratio 1.7 Ratio 04/24/2016 Unkn own Comp Metabolic Kap266 Osmo 279 mOsmo 04/24/2016 Unkn own Lipid Ord30 CHOL 208 mg/dL 04/24/2016 Unknown Lipid Ord30 HDL 42.0 mg/dl 04/24/2016 Unknown Lipid Ord30 TRIG 98 mg/dL 04/24/2016 Unknown Lipid Ord30 LDL 146 mg/dL 04/24/2016 Unknown Lipid Ord30 C/HDL 5.0 Ratio 04/24/2016 Unknown %Hba1C Jtj881 % HbA1c 42780-8 7.5 % 04/24/2016 Unknown %Hba1C Hnt475 Gluc Ave 169 mg/dL 04/24/2016 Unknown Tsh Ord6 hTSH II 0.82 uIU/mL 04/24/2016 Unknown Free T4 Kra730 FREE T4 1.17 ng/dL 04/24/2016 Unknown Digoxin Ord9 DIGOXIN 0.9 NG/ML 02/03/2016 Unknown Free T4 Dkn293 FREE T4 1.17 ng/dL 12/07/2015 Unknown %Hba1C Pgh130 % HbA1c 44156-7 7.5 % 12/07/2015 Unknown %Hba1C Msk788 Gluc Ave 169 mg/dL 12/07/2015 Unknown Tsh [...] 12/07/19 16 Unknown Cbc With Differential Ord2 Roberts% 9.3 % 12/07/19 16 Unknown Cbc With [...] With Differential Ord2 Lymph ABS# 1.23 K/ul 05/31/2 016 Unknown Cbc With Differential Ord2 Roberts ABS# 0.7 K/ul 12/07/19 16 Unknown Cbc [...] C/HDL 4.8 Ratio 12/07/2015 Unknown Comp Metabolic Ygs488 NA 139 mEq/L 12/07/2015 Unkn own Comp Metabolic Sma202 K 4.3 mEq/L 12/07/2015 Unkn own Comp Metabolic Qke297 CL 101 mEq/L 12/07/2015 Unkn own Comp Metabolic Aan763 CO2 33.0 mEq/L 12/07/2015 Unk nown Comp Metabolic Exw187 ANION GAP 9 12/07/2015 Unkn own Comp Metabolic Wad622 GLUCOSE 159 mg/dL 12/07/2015 Unkn own Comp Metabolic Ayq353 Creat 0.6 mg/dL 12/07/2015 Unkn own Comp Metabolic Wqs377 eGFR 108 ml/min/1.73m2 016 Unknown Comp Metabolic Rko603 BUN 13 mg/dL 12/07/2015 Unkn own Comp Metabolic Zev061 B/C Ratio 22.4 Ratio 12/07/2015 Unk nown Comp Metabolic Oic953 CALCIUM 9.0 mg/dL 12/07/2015 Unkn own Comp Metabolic Mal383 ALK PHOS 60 U/L 12/07/2015 Unkn own Comp Metabolic Ake111 AST(SGOT) 16 U/L 12/07/2015 Unkn own Comp Metabolic Tlw264 ALT(SGPT) 19 U/L 12/07/2015 Unkn own Comp Metabolic Ssq188 BILI T 0.6 mg/dL 12/07/2015 Unkn own Comp Metabolic Ggc092 ALBUMIN 4.0 g/dL 12/07/2015 Unkn own Comp Metabolic Wpk722 TPRO 6.0 g/dL 12/07/2015 Unkn own Comp Metabolic Ick771 GLOB 2.0 g/dL 12/07/2015 Unkn own Comp Metabolic Tmx578 A/G Ratio 1.9 Ratio 12/07/2015 Unkn own Comp Metabolic Wpg491 Osmo 281 mOsmo 12/07/2015 Unkn own Cbc [...] hTSH II 1.10 uIU/mL 06/14/2015 Unknown %Hba1C Hoy836 % HbA1c 63931-3 6.8 % 06/14/2015 Unknown %Hba1C Euw985 Gluc Ave 148 mg/dL 06/14/2015 Unknown Free T4 Gdv150 FREE T4 1.31 ng/dL 06/14/2015 Unknown CHEM 14 9535745 AST 14 U/L 12/07/2014 Unknown CHEM 14 6840864 ALT 12 IU/L 12/07/2014 Unknown CHEM 14 4617944 BUN 12 MG/DL 12/07/2014 Unknown CHEM 14 7277880 ALBUMIN 3.9 GM/DL 12/07/2014 Unknown CHEM 14 6276801 CHLORIDE 103 MMOL/L 12/07/2014 Unknown CHEM 14 7130091 BILI TOT 0.6 MG/DL 12/07/2014 Unknown CHEM 14 3647214 ALK PHOS 49 U/L 12/07/2014 Unknown CHEM 14 6893918 SODIUM 140 MMOL/L 12/07/2014 Unknown CHEM 14 6887980 CREATININE 0.57 MG/DL 12/07/2014 Unknown CHEM 14 1009823 CALCIUM 9.5 MG/DL 12/07/2014 Unknown CHEM 14 6666222 POTASSIUM 4.0 MMOL/L 12/07/2014 Unknown CHEM 14 5504211 PROT TOT 6.5 GM/DL 12/07/2014 Unknown CHEM 14 6449943 GLUCOSE 110 MG/DL 12/07/2014 Unknown CHEM 14 9939933 BICARB 29 MMOL/L 12/07/2014 Unknown CHEM 14 4330118 ANION GAP 8 MEQ/L 12/07/2014 Unknown A1C HPLC 8799236 A1C HPLC 66926-9 6.4 % 12/07/2014 Unknown TSH 2427817 TSH 1.106 uIU/ML 12/07/2014 Unknow n LIPID GRP HDL TEST 46 MG/DL 12/07/2014 Unknown LIPID GRP TRIG 119 MG/DL 12/07/2014 Unknown LIPID GRP 6340510 TEST LDL 108 MG/DL 12/07/2014 Unknown LIPID GRP 2053701 CHOL 178 MG/DL 12/07/2014 Unknown LIPID GRP 7740075 RCHOL/HDL 3.87 RATIO 12/07/2014 Unknown LIPID GRP 6008793 NON-HDL CH 132 MG/DL 12/07/2014 Unknown CBC 2021296 WBC 6.4 10e9/L 12/07/2014 Unknown CBC 9996782 RBC 4.51 10e12/L 12/07/2014 Unknow n CBC 9087665 HGB 12.2 g/dL 12/07/2014 Unknown CBC 3906346 HCT DET 39.0 % 12/07/2014 Unknown CBC 0810788 MCV 86.5 fL 12/07/2014 Unknown CBC 3256824 MCH 27.1 pg 12/07/2014 Unknown CBC 0576810 MCHC 31.3 g/dL 12/07/2014 Unknown CBC 1908876 PLT 325 10e9/L 12/07/2014 Unknown CBC 3358618 MPV 10.4 fL 12/07/2014 Unknown CBC 4530420 TIM % 62.0 % 12/07/2014 Unknown CBC 7315598 LY % 21.4 % 12/07/2014 Unknown CBC 7747805 MON % 9.5 % 12/07/2014 Unknown CBC 2190556 EOS % 6.3 % 12/07/2014 Unknown CBC 3387580 BASO % 0.8 % 12/07/2014 Unknown CBC 8718489 RDW 15.8 % 12/07/2014 Unknown CBC 1769344 ABS TIM 3.97 10e9/L 12/07/2014 Unknown CBC 6537950 ABS LYMPH 1.37 10e9/L 12/07/2014 Unknown CBC 6171888 ABS MONO 0.61 10e9/L 12/07/2014 Unknown CBC 8695402 ABS EOS 0.40 10e9/L 12/07/2014 Unknown CBC 5747233 ABS BASO 0.05 10e9/L 12/07/2014 Unknown CBC 5080841 RDW-SD 48.8 fL 12/07/2014 Unknown FREE T4 5214778 FREE T4 1.37 NG/DL 12/07/2014 Unknown GFR CALC 1032042 GFR AA >60 ML/MIN 12/07/2014 Unknown GFR CALC 7721611 GFR NON-AA >60 ML/MIN 12/07/2014 Unknown CHEM 14 0025608 AST 17 U/L 11/04/2013 Unknown CHEM 14 9534183 ALT 16 IU/L 11/04/2013 Unknown CHEM 14 4629953 BUN 13 MG/DL 11/04/2013 Unknown CHEM 14 1734393 ALBUMIN 4.3 GM/DL 11/04/2013 Unknown CHEM 14 0229150 CHLORIDE 104 MMOL/L 11/04/2013 Unknown CHEM 14 6244100 BILI TOT 0.7 MG/DL 11/04/2013 Unknown CHEM 14 1910029 ALK PHOS 67 U/L 11/04/2013 Unknown CHEM 14 7258246 SODIUM 140 MMOL/L 11/04/2013 Unknown CHEM 14 2197600 CREATININE 0.64 MG/DL 11/04/2013 Unknown CHEM 14 3637770 CALCIUM 9.5 MG/DL 11/04/2013 Unknown CHEM 14 4774483 POTASSIUM 4.0 MMOL/L 11/04/2013 Unknown CHEM 14 0971772 PROT TOT 6.1 GM/DL 11/04/2013 Unknown CHEM 14 5632387 GLUCOSE 157 MG/DL 11/04/2013 Unknown CHEM 14 3165632 BICARB 27 MMOL/L 11/04/2013 Unknown CHEM 14 1961855 ANION GAP 9 MEQ/L 11/04/2013 Unknown FREE T4 9999723 FREE T4 1.44 NG/DL 11/04/2013 Unknown GFR CALC 2549002 GFR AA >60 ML/MIN 11/04/2013 Unknown GFR CALC 2480253 GFR NON-AA >60 ML/MIN 11/04/2013 Unknown TSH 6524616 TSH 0.841 uIU/ML 11/04/2013 Unknow n A1C HPLC 7528916 A1C HPLC 53722-4 7.2 % 11/04/2013 Unknown LIPID GRP HDL TEST 45 MG/DL 11/04/2013 Unknown LIPID GRP TRIG 104 MG/DL 11/04/2013 Unknown LIPID GRP [id number] TEST LDL 82 MG/DL 11/04/2013 Unknown LIPID GRP CHOL 148 MG/DL 11/04/2013 Unknown LIPID GRP RCHOL/HDL 3.29 RATIO 11/04/2013 Unknown CBC 0414435 WBC 6.2 10e9/L 11/04/2013 Unknown CBC 4935940 RBC 4.38 10e12/L 11/04/2013 Unknow n CBC 3670009 HGB 11.8 g/dL 11/04/2013 Unknown CBC 3285524 HCT DET 37.5 % 11/04/2013 Unknown CBC 0778262 MCV 85.6 fL 11/04/2013 Unknown CBC 6555072 MCH 26.9 pg 11/04/2013 Unknown CBC 3039870 MCHC 31.5 g/dL 11/04/2013 Unknown CBC 4845316 PLT 330 10e9/L 11/04/2013 Unknown CBC 6238951 MPV 10.6 fL 11/04/2013 Unknown CBC 7160920 TIM % 60.8 % 11/04/2013 Unknown CBC 4830761 LY % 22.1 % 11/04/2013 Unknown CBC 5051610 MON % 9.6 % 11/04/2013 Unknown CBC 5160775 EOS % 6.4 % 11/04/2013 Unknown CBC 5477053 BASO % 1.1 % 11/04/2013 Unknown CBC 4621906 RDW 15.6 % 11/04/2013 Unknown CBC 6197354 ABS TIM 3.77 10e9/L 11/04/2013 Unknown CBC 2795503 ABS LYMPH 1.37 10e9/L 11/04/2013 Unknown CBC 9175679 ABS MONO 0.60 10e9/L 11/04/2013 Unknown CBC 8859957 ABS EOS 0.40 10e9/L 11/04/2013 Unknown CBC 0408723 ABS BASO 0.07 10e9/L 11/04/2013 Unknown CBC 1522856 RDW-SD 48.0 fL 11/04/2013 Unknown DIGOXIN 5261281 DIGOXIN 0.5 NG/ML 11/04/2013 Unknown A1C HPLC 1027312 A1C HPLC 76470-7 7.6 % 07/28/2013 Unknown LIPID GRP HDL TEST 38 MG/DL 07/28/2013 Unknown LIPID GRP TRIG 137 MG/DL 07/28/2013 Unknown LIPID GRP TEST LDL 73 MG/DL 07/28/2013 Unknown LIPID GRP [id number] CHOL 138 MG/DL 07/28/2013 Unknown LIPID GRP RCHOL/HDL 3.63 RATIO 07/28/2013 Unknown LIVER PNL 6084516 BILI DIR 0.2 MG/DL 07/28/2013 Unknown DIGOXIN 2846903 DIGOXIN 0.4 NG/ML 07/28/2013 Unknown CBC 1631973 WBC 7.2 10e9/L 07/28/2013 Unknown CBC 8480101 RBC 4.65 10e12/L 07/28/2013 Unknow n CBC 3513888 HGB 12.6 g/dL 07/28/2013 Unknown CBC 3056684 HCT DET 39.6 % 07/28/2013 Unknown CBC 9213964 MCV 85.2 fL 07/28/2013 Unknown CBC 0831438 MCH 27.1 pg 07/28/2013 Unknown CBC 4119759 MCHC 31.8 g/dL 07/28/2013 Unknown CBC 2883003 PLT 344 10e9/L 07/28/2013 Unknown CBC 6391391 MPV 10.7 fL 07/28/2013 Unknown CBC 8337861 TIM % 61.4 % 07/28/2013 Unknown CBC 5107324 LY % 22.4 % 07/28/2013 Unknown CBC 8554284 MON % 8.4 % 07/28/2013 Unknown CBC 1115207 EOS % 6.8 % 07/28/2013 Unknown CBC 9867475 BASO % 1.0 % 07/28/2013 Unknown CBC 4937983 RDW 15.5 % 07/28/2013 Unknown CBC 4051507 ABS TIM 4.42 10e9/L 07/28/2013 Unknown CBC 3802565 ABS LYMPH 1.61 10e9/L 07/28/2013 Unknown CBC 1050599 ABS MONO 0.60 10e9/L 07/28/2013 Unknown CBC 1627054 ABS EOS 0.49 10e9/L 07/28/2013 Unknown CBC 1590815 ABS BASO 0.07 10e9/L 07/28/2013 Unknown CBC 5331656 RDW-SD 47.2 fL 07/28/2013 Unknown GFR CALC 9315685 GFR AA >60 ML/MIN 07/28/2013 Unknown GFR CALC 1581811 GFR NON-AA >60 ML/MIN 07/28/2013 Unknown CHEM 14 1780813 AST 20 U/L 07/28/2013 Unknown CHEM 14 5902389 ALT 19 IU/L 07/28/2013 Unknown CHEM 14 8502753 BUN 13 MG/DL 07/28/2013 Unknown CHEM 14 1185082 ALBUMIN 4.1 GM/DL 07/28/2013 Unknown CHEM 14 4381848 CHLORIDE 102 MMOL/L 07/28/2013 Unknown CHEM 14 2763352 BILI TOT 0.7 MG/DL 07/28/2013 Unknown CHEM 14 6506233 ALK PHOS 62 U/L 07/28/2013 Unknown CHEM 14 5675704 SODIUM 139 MMOL/L 07/28/2013 Unknown CHEM 14 2295761 CREATININE 0.66 MG/DL 07/28/2013 Unknown CHEM 14 1299425 CALCIUM 9.3 MG/DL 07/28/2013 Unknown CHEM 14 2694689 POTASSIUM 4.4 MMOL/L 07/28/2013 Unknown CHEM 14 9364102 PROT TOT 6.2 GM/DL 07/28/2013 Unknown CHEM 14 4543595 GLUCOSE 160 MG/DL 07/28/2013 Unknown CHEM 14 2554021 BICARB 29 MMOL/L 07/28/2013 Unknown CHEM 14 5629497 ANION GAP 8 MEQ/L 07/28/2013 Unknown DIGOXIN 4230568 DIGOXIN 0.6 NG/ML 05/12/2013 Unknown GFR CALC 2806009 GFR AA >60 ML/MIN 04/29/2013 Unknown GFR CALC 3246420 GFR NON-AA >60 ML/MIN 04/29/2013 Unknown A1C 5652299 A1C HPLC 67403-1 7.5 % 04/29/2013 Unknown TSH 0579381 TSH 1.161 uIU/ML 04/29/2013 Unknow n CHEM 14 8573253 AST 14 U/L 04/29/2013 Unknown CHEM 14 9233531 ALT 14 IU/L 04/29/2013 Unknown CHEM 14 2875053 BUN 13 MG/DL 04/29/2013 Unknown CHEM 14 6722180 ALBUMIN 4.1 GM/DL 04/29/2013 Unknown CHEM 14 0297064 CHLORIDE 102 MMOL/L 04/29/2013 Unknown CHEM 14 5226136 BILI TOT 0.7 MG/DL 04/29/2013 Unknown CHEM 14 4734203 ALK PHOS 75 U/L 04/29/2013 Unknown CHEM 14 0776163 SODIUM 139 MMOL/L 04/29/2013 Unknown CHEM 14 7813516 CREATININE 0.62 MG/DL 04/29/2013 Unknown CHEM 14 9793659 CALCIUM 9.3 MG/DL 04/29/2013 Unknown CHEM 14 1663796 POTASSIUM 4.0 MMOL/L 04/29/2013 Unknown CHEM 14 7967257 PROT TOT 6.5 GM/DL 04/29/2013 Unknown CHEM 14 [id number] GLUCOSE 152 MG/DL 04/29/2013 Unknown CHEM 14 [id number] BICARB 31 MMOL/L 04/29/2013 Unknown CHEM 14 [id number] ANION GAP 6 MEQ/L 04/29/2013 Unknown CBC [id number] WBC 7.4 10e9/L 04/29/2013 Unknown CBC [id number] RBC 4.70 10e12/L 04/29/2013 Unknow n CBC [id number] HGB 12.8 g/dL 04/29/2013 Unknown CBC [id number] HCT DET 40.1 % 04/29/2013 Unknown CBC [id number] MCV 85.3 fL 04/29/2013 Unknown CBC 8591516 MCH 27.2 pg 04/29/2013 Unknown CBC [id number] MCHC 31.9 g/dL 04/29/2013 Unknown CBC [id number] PLT 312 10e9/L 04/29/2013 Unknown CBC [id number] MPV 10.4 fL 04/29/2013 Unknown CBC [id number] TIM % 64.9 % 04/29/2013 Unknown CBC [id number] LY % 20.0 % 04/29/2013 Unknown CBC [id number] MON % 8.6 % 04/29/2013 Unknown CBC [id number] EOS % 5.3 % 04/29/2013 Unknown CBC [id number] BASO % 1.2 % 04/29/2013 Unknown CBC [id number] RDW 15.4 % 04/29/2013 Unknown CBC [id number] ABS TIM 4.80 10e9/L 04/29/2013 Unknown CBC [id number] ABS LYMPH 1.48 10e9/L 04/29/2013 Unknown CBC [id number] ABS MONO 0.64 10e9/L 04/29/2013 Unknown CBC [id number] ABS EOS 0.39 10e9/L 04/29/2013 Unknown CBC [id number] ABS BASO 0.09 10e9/L 04/29/2013 Unknown CBC [id number] RDW-SD 47.3 fL 04/29/2013 Unknown LIPID GRP HDL TEST 43 MG/DL 04/29/2013 Unknown LIPID GRP TRIG 111 MG/DL 04/29/2013 Unknown LIPID GRP [id number] TEST LDL 65 MG/DL 04/29/2013 Unknown LIPID GRP CHOL 130 MG/DL 04/29/2013 Unknown LIPID GRP RCHOL/HDL 3.02 RATIO 04/29/2013 Unknown TSH [id number] TSH 1.406 uIU/ML 12/28/2012 Unknow n A1C 0495749 A1C HPLC 09485-6 7.2 % 12/28/2012 Unknown LIPID GRP HDL TEST 54 MG/DL 12/27/2012 Unknown LIPID GRP TRIG 94 MG/DL 12/27/2012 Unknown LIPID GRP TEST LDL 42 MG/DL 12/27/2012 Unknown LIPID GRP CHOL 115 MG/DL 12/27/2012 Unknown LIPID GRP RCHOL/HDL 2.13 RATIO 12/27/2012 Unknown GFR CALC 2838218 GFR AA >60 ML/MIN 12/27/2012 Unknown GFR CALC 6725125 GFR NON-AA >60 ML/MIN 12/27/2012 Unknown CHEM 14 [id number] AST 14 U/L 12/27/2012 Unknown CHEM 14 8065094 ALT 13 IU/L 12/27/2012 Unknown CHEM 14 9502784 BUN 13 MG/DL 12/27/2012 Unknown CHEM 14 [id number] ALBUMIN 4.5 GM/DL 12/27/2012 Unknown CHEM 14 4043563 CHLORIDE 105 MMOL/L 12/27/2012 Unknown CHEM 14 8828045 BILI TOT 0.8 MG/DL 12/27/2012 Unknown CHEM 14 2996071 ALK PHOS 69 U/L 12/27/2012 Unknown CHEM 14 [id number] SODIUM 142 MMOL/L 12/27/2012 Unknown CHEM 14 [id number] CREATININE 0.73 MG/DL 12/27/2012 Unknown CHEM 14 [id number] CALCIUM 9.7 MG/DL 12/27/2012 Unknown CHEM 14 [id number] POTASSIUM 4.1 MMOL/L 12/27/2012 Unknown CHEM 14 [id number] PROT TOT 6.8 GM/DL 12/27/2012 Unknown CHEM 14 [id number] GLUCOSE 133 MG/DL 12/27/2012 Unknown CHEM 14 [id number] BICARB 30 MMOL/L 12/27/2012 Unknown CHEM 14 [id number] ANION GAP 7 MEQ/L 12/27/2012 Unknown CBC [id number] WBC 6.8 10e9/L 12/27/2012 Unknown CBC 6606485 RBC 4.72 10e12/L 12/27/2012 Unknow n CBC 0131612 HGB 12.5 g/dL 12/27/2012 Unknown CBC 5631413 HCT DET 39.6 % 12/27/2012 Unknown CBC 2856176 MCV 83.9 fL 12/27/2012 Unknown CBC 3704112 MCH 26.5 pg 12/27/2012 Unknown CBC [id number] MCHC 31.6 g/dL 12/27/2012 Unknown CBC [id number] PLT 336 10e9/L 12/27/2012 Unknown CBC 8817987 MPV 10.4 fL 12/27/2012 Unknown CBC [id number] TIM % 60.7 % 12/27/2012 Unknown CBC [id number] LY % 24.6 % 12/27/2012 Unknown CBC [id number] MON % 8.4 % 12/27/2012 Unknown CBC 3070531 EOS % 5.3 % 12/27/2012 Unknown CBC [id number] BASO % 1.0 % 12/27/2012 Unknown CBC [id number] RDW 16.6 % 12/27/2012 Unknown CBC [id number] ABS TIM 4.13 10e9/L 12/27/2012 Unknown CBC [id number] ABS LYMPH 1.67 10e9/L 12/27/2012 Unknown CBC [id number] ABS MONO 0.57 10e9/L 12/27/2012 Unknown CBC 1254972 ABS EOS 0.36 10e9/L 12/27/2012 Unknown CBC [id number] ABS BASO 0.07 10e9/L 12/27/2012 Unknown CBC 1018827 RDW-SD 50.1 fL 12/27/2012 Unknown GFR CALC 4284440 GFR AA >60 ML/MIN 08/27/2012 Unknown GFR CALC 3866463 GFR NON-AA >60 ML/MIN 08/27/2012 Unknown CHEM 14 4582003 AST 15 U/L 08/27/2012 Unknown CHEM 14 6069475 ALT 17 IU/L 08/27/2012 Unknown CHEM 14 5830892 BUN 14 MG/DL 08/27/2012 Unknown CHEM 14 8403534 ALBUMIN 4.2 GM/DL 08/27/2012 Unknown CHEM 14 6772099 CHLORIDE 103 MMOL/L 08/27/2012 Unknown CHEM 14 6301913 BILI TOT 0.6 MG/DL 08/27/2012 Unknown CHEM 14 0506695 ALK PHOS 86 U/L 08/27/2012 Unknown CHEM 14 6121974 SODIUM 141 MMOL/L 08/27/2012 Unknown CHEM 14 9972057 CREATININE 0.64 MG/DL 08/27/2012 Unknown CHEM 14 0674458 CALCIUM 9.5 MG/DL 08/27/2012 Unknown CHEM 14 2728930 POTASSIUM 4.1 MMOL/L 08/27/2012 Unknown CHEM 14 2305256 PROT TOT 6.1 GM/DL 08/27/2012 Unknown CHEM 14 1506031 GLUCOSE 151 MG/DL 08/27/2012 Unknown CHEM 14 6607483 BICARB 30 MMOL/L 08/27/2012 Unknown CHEM 14 1932201 ANION GAP 8 MEQ/L 08/27/2012 Unknown FREE T4 [id number] FREE T4 1.36 NG/DL 08/27/2012 Unknown CBC 5845889 WBC 7.8 10e9/L 08/27/2012 Unknown CBC 8593413 RBC 4.54 10e12/L 08/27/2012 Unknow n CBC 2106664 HGB 12.0 g/dL 08/27/2012 Unknown CBC 1093109 HCT DET 37.9 % 08/27/2012 Unknown CBC 2610446 MCV 83.5 fL 08/27/2012 Unknown CBC 9066948 MCH 26.4 pg 08/27/2012 Unknown CBC 7241713 MCHC 31.7 g/dL 08/27/2012 Unknown CBC 7486464 PLT 370 10e9/L 08/27/2012 Unknown CBC 4676244 MPV 10.7 fL 08/27/2012 Unknown CBC 3583500 TIM % 65.7 % 08/27/2012 Unknown CBC 3557901 LY % 19.5 % 08/27/2012 Unknown CBC 7083118 MON % 9.0 % 08/27/2012 Unknown CBC 1528840 EOS % 5.0 % 08/27/2012 Unknown CBC 3850167 BASO % 0.8 % 08/27/2012 Unknown CBC 7012505 RDW 15.4 % 08/27/2012 Unknown CBC 9709193 ABS TIM 5.12 10e9/L 08/27/2012 Unknown CBC 6277377 ABS LYMPH 1.52 10e9/L 08/27/2012 Unknown CBC 0155404 ABS MONO 0.70 10e9/L 08/27/2012 Unknown CBC 1555197 ABS EOS 0.39 10e9/L 08/27/2012 Unknown CBC 6114307 ABS BASO 0.06 10e9/L 08/27/2012 Unknown CBC 2274656 RDW-SD 46.3 fL 08/27/2012 Unknown A1C HPLC 1779605 A1C HPLC 11994-1 7.3 % 08/27/2012 Unknown LIPID GRP HDL TEST 41 MG/DL 08/27/2012 Unknown LIPID GRP TRIG 120 MG/DL 08/27/2012 Unknown LIPID GRP TEST LDL 67 MG/DL 08/27/2012 Unknown LIPID GRP CHOL 132 MG/DL 08/27/2012 Unknown LIPID GRP RCHOL/HDL 3.22 RATIO 08/27/2012 Unknown TSH 3304284 TSH 0.933 uIU/ML 08/27/2012 Unknow n DIGOXIN 9517302 DIGOXIN 1.4 NG/ML 07/15/2012 Unknown CBC 9643499 WBC 6.3 10e9/L 07/15/2012 Unknown CBC 6005170 RBC 4.44 10e12/L 07/15/2012 Unknow n CBC 0447199 HGB 11.8 g/dL 07/15/2012 Unknown CBC 0740733 HCT DET 36.9 % 07/15/2012 Unknown CBC 3015499 MCV 83.1 fL 07/15/2012 Unknown CBC 8484543 MCH 26.6 pg 07/15/2012 Unknown CBC 2444622 MCHC 32.0 g/dL 07/15/2012 Unknown CBC 8903637 PLT 316 10e9/L 07/15/2012 Unknown CBC 2218271 MPV 10.3 fL 07/15/2012 Unknown CBC 1313023 TIM % 64.4 % 07/15/2012 Unknown CBC 9197131 LY % 19.6 % 07/15/2012 Unknown CBC 8157546 MON % 9.1 % 07/15/2012 Unknown CBC 2900657 EOS % 6.1 % 07/15/2012 Unknown CBC 4288913 BASO % 0.8 % 07/15/2012 Unknown CBC 0168743 RDW 15.3 % 07/15/2012 Unknown CBC 3700238 ABS TIM 4.06 10e9/L 07/15/2012 Unknown CBC 2571701 ABS LYMPH 1.23 10e9/L 07/15/2012 Unknown CBC 4882340 ABS MONO 0.57 10e9/L 07/15/2012 Unknown CBC 0379289 ABS EOS 0.38 10e9/L 07/15/2012 Unknown CBC 4332565 ABS BASO 0.05 10e9/L 07/15/2012 Unknown CBC 9108124 RDW-SD 46.2 fL 07/15/2012 Unknown DIGOXIN 5966298 DIGOXIN 1.4 NG/ML 07/04/2012 Unknown BMP 5370506 GLUCOSE 137 MG/DL 07/04/2012 Unknown BMP 5951271 CREATININE 0.86 MG/DL 07/04/2012 Unknown BMP 9238096 BUN 14 MG/DL 07/04/2012 Unknown BMP 3886691 SODIUM 140 MMOL/L 07/04/2012 Unknown BMP 8669051 POTASSIUM 4.5 MMOL/L 07/04/2012 Unknown BMP 7949148 CHLORIDE 103 MMOL/L 07/04/2012 Unknown BMP 4871120 BICARB 28 MMOL/L 07/04/2012 Unknown BMP 5922616 ANION GAP 9 MEQ/L 07/04/2012 Unknown BMP 2307081 CALCIUM 9.7 MG/DL 07/04/2012 Unknown CBC 5979902 WBC 6.9 10e9/L 07/04/2012 Unknown CBC 2426498 RBC 4.56 10e12/L 07/04/2012 Unknow n CBC 2305362 HGB 12.2 g/dL 07/04/2012 Unknown CBC 0122109 HCT DET 38.1 % 07/04/2012 Unknown CBC 8794616 MCV 83.6 fL 07/04/2012 Unknown CBC 1836880 MCH 26.8 pg 07/04/2012 Unknown CBC 4766408 MCHC 32.0 g/dL 07/04/2012 Unknown CBC 6874307 PLT 382 10e9/L 07/04/2012 Unknown CBC 3095364 MPV 10.6 fL 07/04/2012 Unknown CBC 7481656 TIM % 58.7 % 07/04/2012 Unknown CBC 7029783 LY % 23.7 % 07/04/2012 Unknown CBC 7585549 MON % 10.2 % 07/04/2012 Unknown CBC 4418957 EOS % 6.4 % 07/04/2012 Unknown CBC 9012955 BASO % 1.0 % 07/04/2012 Unknown CBC 8481972 RDW 15.8 % 07/04/2012 Unknown CBC 3734302 ABS TIM 4.05 10e9/L 07/04/2012 Unknown CBC 7076575 ABS LYMPH 1.64 10e9/L 07/04/2012 Unknown CBC 4291936 ABS MONO 0.70 10e9/L 07/04/2012 Unknown CBC 1037080 ABS EOS 0.44 10e9/L 07/04/2012 Unknown CBC 9857416 ABS BASO 0.07 10e9/L 07/04/2012 Unknown CBC 6209362 RDW-SD 47.5 fL 07/04/2012 Unknown GFR CALC 5332231 GFR AA >60 ML/MIN 07/04/2012 Unknown GFR CALC 0647951 GFR NON-AA >60 ML/MIN 07/04/2012 Unknown A1C HPLC 1609309 A1C HPLC 72445-6 7.1 % 03/27/2012 Unknown GFR CALC 5892224 GFR AA >60 ML/MIN 03/26/2012 Unknown GFR CALC 3997592 GFR NON-AA >60 ML/MIN 03/26/2012 Unknown LIPID GRP HDL TEST 40 MG/DL 03/26/2012 Unknown LIPID GRP TRIG 93 MG/DL 03/26/2012 Unknown LIPID GRP [id number] TEST LDL 62 MG/DL 03/26/2012 Unknown LIPID GRP 5260425 CHOL 121 MG/DL 03/26/2012 Unknown LIPID GRP RCHOL/HDL 3.03 RATIO 03/26/2012 Unknown TSH 3914961 TSH 0.842 uIU/ML 03/26/2012 Unknow n FREE T4 2524473 FREE T4 1.30 NG/DL 03/26/2012 Unknown CBC 5162734 WBC 5.3 10e9/L 03/26/2012 Unknown CBC 6072562 RBC 4.70 10e12/L 03/26/2012 Unknow n CBC 0328997 HGB 12.1 g/dL 03/26/2012 Unknown CBC 2517015 HCT DET 38.1 % 03/26/2012 Unknown CBC 3338202 MCV 81.1 fL 03/26/2012 Unknown CBC 8821728 MCH 25.7 pg 03/26/2012 Unknown CBC 2582225 MCHC 31.8 g/dL 03/26/2012 Unknown CBC 4464992 PLT 315 10e9/L 03/26/2012 Unknown CBC 7622075 MPV 10.9 fL 03/26/2012 Unknown CBC 0620061 TIM % 54.8 % 03/26/2012 Unknown CBC 5985430 LY % 25.8 % 03/26/2012 Unknown CBC 7846029 MON % 11.6 % 03/26/2012 Unknown CBC 2374227 EOS % 7.0 % 03/26/2012 Unknown CBC 6054210 BASO % 0.8 % 03/26/2012 Unknown CBC 8686866 RDW 16.7 % 03/26/2012 Unknown CBC 7283712 ABS TIM 2.90 10e9/L 03/26/2012 Unknown CBC 5289549 ABS LYMPH 1.37 10e9/L 03/26/2012 Unknown CBC 2025347 ABS MONO 0.61 10e9/L 03/26/2012 Unknown CBC 3021469 ABS EOS 0.37 10e9/L 03/26/2012 Unknown CBC 8377389 ABS BASO 0.04 10e9/L 03/26/2012 Unknown CBC 0520515 RDW-SD 48.8 fL 03/26/2012 Unknown CHEM 14 5808337 AST 18 U/L 03/26/2012 Unknown CHEM 14 1339348 ALT 17 IU/L 03/26/2012 Unknown CHEM 14 1398859 BUN 16 MG/DL 03/26/2012 Unknown CHEM 14 1804429 ALBUMIN 4.3 GM/DL 03/26/2012 Unknown CHEM 14 3682262 CHLORIDE 103 MMOL/L 03/26/2012 Unknown CHEM 14 8610086 BILI TOT 0.9 MG/DL 03/26/2012 Unknown CHEM 14 3745076 ALK PHOS 79 U/L 03/26/2012 Unknown CHEM 14 2342693 SODIUM 140 MMOL/L 03/26/2012 Unknown CHEM 14 7077474 CREATININE 0.70 MG/DL 03/26/2012 Unknown CHEM 14 3485452 CALCIUM 9.6 MG/DL 03/26/2012 Unknown CHEM 14 2209961 POTASSIUM 4.1 MMOL/L 03/26/2012 Unknown CHEM 14 3686756 PROT TOT 6.3 GM/DL 03/26/2012 Unknown CHEM 14 9656270 GLUCOSE 142 MG/DL 03/26/2012 Unknown CHEM 14 3191723 BICARB 29 MMOL/L 03/26/2012 Unknown CHEM 14 0273620 ANION GAP 8 MEQ/L 03/26/2012 Unknown LIPID GRP 2468773 HDL TEST 42 MG/DL 01/08/2012 Unknown LIPID GRP TRIG 105 MG/DL 01/08/2012 Unknown LIPID GRP TEST LDL 51 MG/DL 01/08/2012 Unknown LIPID GRP CHOL 114 MG/DL 01/08/2012 Unknown LIPID GRP 7346868 RCHOL/HDL 2.71 RATIO 01/08/2012 Unknown CHEM 14 0714287 AST 24 U/L 01/08/2012 Unknown CHEM 14 9199204 ALT 28 IU/L 01/08/2012 Unknown CHEM 14 2969378 BUN 15 MG/DL 01/08/2012 Unknown CHEM 14 8162168 ALBUMIN 4.3 GM/DL 01/08/2012 Unknown CHEM 14 1867120 CHLORIDE 104 MMOL/L 01/08/2012 Unknown CHEM 14 7719049 BILI TOT 0.6 MG/DL 01/08/2012 Unknown CHEM 14 4412159 ALK PHOS 83 U/L 01/08/2012 Unknown CHEM 14 6467640 SODIUM 141 MMOL/L 01/08/2012 Unknown CHEM 14 9897161 CREATININE 0.64 MG/DL 01/08/2012 Unknown CHEM 14 9733710 CALCIUM 9.4 MG/DL 01/08/2012 Unknown CHEM 14 0476472 POTASSIUM 4.0 MMOL/L 01/08/2012 Unknown CHEM 14 3275711 PROT TOT 6.7 GM/DL 01/08/2012 Unknown CHEM 14 2401891 GLUCOSE 145 MG/DL 01/08/2012 Unknown CHEM 14 8378802 BICARB 28 MMOL/L 01/08/2012 Unknown CHEM 14 3964633 ANION GAP 9 MEQ/L 01/08/2012 Unknown CBC 6897166 WBC 5.8 10e9/L 01/08/2012 Unknown CBC 3511193 RBC 4.36 10e12/L 01/08/2012 Unknow n CBC 4496800 HGB 11.6 g/dL 01/08/2012 Unknown CBC 2749921 HCT DET 37.4 % 01/08/2012 Unknown CBC 9424003 MCV 85.8 fL 01/08/2012 Unknown CBC 1044156 MCH 26.6 pg 01/08/2012 Unknown CBC 3811034 MCHC 31.0 g/dL 01/08/2012 Unknown CBC 7110904 PLT 319 10e9/L 01/08/2012 Unknown CBC 9763643 MPV 10.5 fL 01/08/2012 Unknown CBC 4012511 TIM % 62.2 % 01/08/2012 Unknown CBC 4447153 LY % 20.7 % 01/08/2012 Unknown CBC 9380209 MON % 9.3 % 01/08/2012 Unknown CBC 5489713 EOS % 6.4 % 01/08/2012 Unknown CBC 8280519 BASO % 1.4 % 01/08/2012 Unknown CBC 3882014 RDW 14.9 % 01/08/2012 Unknown CBC 7161635 ABS TIM 3.61 10e9/L 01/08/2012 Unknown CBC 8867595 ABS LYMPH 1.20 10e9/L 01/08/2012 Unknown CBC 1879608 ABS MONO 0.54 10e9/L 01/08/2012 Unknown CBC 3632724 ABS EOS 0.37 10e9/L 01/08/2012 Unknown CBC 1286603 ABS BASO 0.08 10e9/L 01/08/2012 Unknown CBC 0046834 RDW-SD 44.9 fL 01/08/2012 Unknown GFR CALC 0026991 GFR AA >60 ML/MIN 01/08/2012 Unknown GFR CALC 2577269 GFR NON-AA >60 ML/MIN 01/08/2012 Unknown A1C HPLC 8065402 A1C HPLC 86480-0 7.2 % 01/08/2012 Unknown Procedures Procedure Codes Date Iaad ia sarscov & influenza virus types a&b CPT-4: 09823 06/05/2022 ADMIN INFLUENZA VIRUS VAC CPT-4: G0008 04/05/2021 IIV NO PRSV INCREASED AG IM CPT-4: 56859 04/05/2021 ADMIN INFLUENZA VIRUS VAC CPT-4: G0008 04/07/2020 IIV NO PRSV INCREASED AG IM CPT-4: 36368 04/07/2020 IIV4 VACC NO PRSV 0.5 ML IM CPT-4: 97736 05/13/2019 IIV4 VACC NO PRSV 0.5 ML IM CPT-4: 04058 05/13/2019 ADMIN INFLUENZA VIRUS VAC CPT-4: G0008 05/13/2019 THER/PROPH/DIAG INJ SC/IM CPT-4: 51291 09/23/2018 TRIAMCINOLONE ACET INJ NOS 10 mg CPT-4: J3301 019 URINALYSIS NONAUTO W/O SCOPE CPT-4: 53486 12/31/2017 OCCULT BLOOD FECES CPT-4: 92439 11/28/2017 TRIAMCINOLONE ACET INJ NOS 10 mg CPT-4: J3301 018 REMOVAL OF IMPACTED WAX MD CPT-4: G0268 05/29/2017 THER/PROPH/DIAG INJ SC/IM CPT-4: 30535 05/14/2017 KETOROLAC TROMETHAMINE INJ 15 mg CPT-4: J1885 017 ADMIN INFLUENZA VIRUS VAC CPT-4: G0008 04/30/2017 IIV NO PRSV INCREASED AG IM CPT-4: 63545 04/30/2017 THER/PROPH/DIAG INJ SC/IM CPT-4: 70661 03/06/2017 TRIAMCINOLONE ACET INJ NOS 10 mg CPT-4: J3301 017 THER/PROPH/DIAG INJ SC/IM CPT-4: 73716 09/04/2016 TRIAMCINOLONE ACET INJ NOS 10 mg CPT-4: J3301 017 THER/PROPH/DIAG INJ SC/IM CPT-4: 21915 11/11/2015 TRIAMCINOLONE ACET INJ NOS 10 mg CPT-4: J3301 016 TRIAMCINOLONE ACET INJ NOS 10 mg CPT-4: J3301 016 THER/PROPH/DIAG INJ SC/IM CPT-4: 90743 10/25/2015 THER/PROPH/DIAG INJ SC/IM CPT-4: 05593 08/17/2014 TRIAMCINOLONE ACET INJ NOS 10 mg CPT-4: J3301 015 TRIAMCINOLONE ACET INJ NOS 10 mg CPT-4: J3301 014 THER/PROPH/DIAG INJ SC/IM CPT-4: 33585 04/13/2014 ROUTINE VENIPUNCTURE CPT-4: 82431 11/04/2013 ROUTINE VENIPUNCTURE CPT-4: 88541 05/12/2013 ADMIN INFLUENZA VIRUS VAC CPT-4: G0008 05/12/2013 FLULAVAL VACC, 3 YRS & >, IM CPT-4: Q2036 05/12/2013 TRIAMCINOLONE ACET INJ NOS 10 mg CPT-4: J3301 013 THER/PROPH/DIAG INJ SC/IM CPT-4: 58473 10/07/2012 ROUTINE VENIPUNCTURE CPT-4: 16168 08/27/2012 ROUTINE VENIPUNCTURE CPT-4: 62674 07/15/2012 ROUTINE VENIPUNCTURE CPT-4: 66009 03/26/2012 ADMIN INFLUENZA VIRUS VAC CPT-4: G0008 03/26/2012 FLULAVAL VACC, 3 YRS & >, IM CPT-4: Q2036 03/26/2012 Pneumococcal Polysaccharide Vaccine, 23-Valent, Ad CPT-4: 90 732 03/26/2012 ROUTINE VENIPUNCTURE CPT-4: 46672 01/08/2012 ROUTINE VENIPUNCTURE CPT-4: 68224 11/06/2011 ROUTINE VENIPUNCTURE CPT-4: 28290 10/25/2011 ROUTINE VENIPUNCTURE CPT-4: 77859 10/16/2011 ROUTINE VENIPUNCTURE CPT-4: 69021 09/25/2011 INJ TRIGGER POINT 1/2 MUSCL CPT-4: 50303 07/31/2011 TRIAMCINOLONE ACET INJ NOS 10 mg CPT-4: J3301 012 PRESCRIP TRANSMIT VIA ERX SY CPT-4: G8553 05/22/2011 ADMIN INFLUENZA VIRUS VAC CPT-4: G0008 05/02/2011 FLULAVAL VACC, 3 YRS & >, IM CPT-4: Q2036 05/02/2011 ROUTINE VENIPUNCTURE CPT-4: 15666 05/02/2011 Vital Signs Date Vital 10/17/2022 Blood Pressure 1: 130/86 Code: 8480-6 BMI: 26.6 Code: 14934-9 Heart Rate 1: 73 bpm Height: 5'1" Code: 8302-2 Respiratory Rate: 18 bpm SpO2: 98% Temperature: 36.2 (C) / 97.1 (F) Weight: 141 lbs Code: 11187-4 06/20/2022 Blood Pressure 1: 130/76 Code: 8480-6 Heart Rate 1: 53 bpm Height: Code: 8302-2 SpO2: 99% Weight: Code: 44765-9 06/05/2022 Heart Rate 1: 85 bpm Height: Code: 8302-2 Respiratory Rate: 17 bpm Weight: Code: 38650-5 02/23/2022 Blood Pressure 1: 138/72 Code: 8480-6 Heart Rate 1: 65 bpm Height: 5'1" Code: 8302-2 SpO2: 98% Temperature: 37.2 (C) / 98.9 (F) Weight: Code: 69243-2 02/20/2022 Blood Pressure 1: 140/76 Code: 8480-6 BMI: 29.5 Code: 00543-0 Heart Rate 1: 62 bpm Height: 5'1" Code: 8302-2 SpO2: 99% Temperature: 3 6.8 (C) / 98.2 (F) Weight: 156 lbs Code: 40234-9 02/06/2022 Blood Pressure 1: 132/76 Code: 8480-6 BMI: 29.5 Code: 69047-7 Heart Rate 1: 52 bpm Height: 5'1" Code: 8302-2 Respiratory Rate: 17 bpm SpO2: 97% Temperature: 36.4 (C) / 97.5 (F) Weight: 156 lbs Code: 65668-1 08/08/2021 Blood Pressure 1: 142/90 Code: 8480-6 BMI: 30.8 Code: 12177-6 Heart Rate 1: 63 bpm Height: 5'1" Code: 8302-2 Respiratory Rate: 17 bpm SpO2: 96% Temperature: 36.3 (C) / 97.4 (F) Weight: 163 lbs Code: 26503-7 04/05/2021 Blood Pressure 1: 160/98 Code: 8480-6 BMI: 30.4 Code: 30656-4 Heart Rate 1: 63 bpm Height: 5'1" Code: 8302-2 Respiratory Rate: 16 bpm SpO2: 96% Temperature: 36.5 (C) / 97.7 (F) Weight: 161 lbs Code: 05517-9 11/30/2020 Blood Pressure 1: 134/70 Code: 8480-6 BMI: 31.4 Code: 21390-5 Heart Rate 1: 81 bpm Height: 5'1" Code: 8302-2 Respiratory Rate: 16 bpm SpO2: 98% Temperature: 36.3 (C) / 97.3 (F) Weight: 166 lbs Code: 36630-5 08/05/2020 Blood Pressure 1: 180/80 Code: 8480-6 BMI: 31.2 Code: 91068-2 Heart Rate 1: 56 bpm Height: 5'1" Code: 8302-2 Respiratory Rate: 18 bpm SpO2: 97% Temperature: 36.1 (C) / 97.0 (F) Weight: 165 lbs Code: 82127-7 04/07/2020 Blood Pressure 1: 142/86 Code: 8480-6 BMI: 31.0 Code: 91862-7 Heart Rate 1: 67 bpm Height: 5'1" Code: 8302-2 SpO2: 99% Temperature: 3 6.7 (C) / 98.1 (F) Weight: 164 lbs Code: 35428-0 12/09/2019 Height: Code: 8302-2 Weight: Code: 294 63-7 09/09/2019 Blood Pressure 1: 142/80 Code: 8480-6 BMI: 31.0 Code: 24908-1 Heart Rate 1: 70 bpm Height: 5'1" Code: 8302-2 Respiratory Rate: 16 bpm SpO2: 98% Weight: 164 lbs Code: 59243-5 05/13/2019 Blood Pressure 1: 160/80 Code: 8480-6 BMI: 30.4 Code: 73439-0 Heart Rate 1: 68 bpm Height: 5'1" Code: 8302-2 SpO2: 97% Weight: 161 lb s Code: 70927-8 02/05/2019 Blood Pressure 1: 140/82 Code: 8480-6 BMI: 30.5 Code: 03943-5 Heart Rate 1: 76 bpm Height: 5'1" Code: 8302-2 SpO2: 97% Weight: 161 lb s 10 oz Code: 45395-2 01/21/2019 Blood Pressure 1: 136/76 Code: 8480-6 BMI: 31.0 Code: 71093-3 Heart Rate 1: 80 bpm Height: 5'1" Code: 8302-2 SpO2: 97% Weight: 164 lb s Code: 86231-3 09/23/2018 Blood Pressure 1: 132/80 Code: 8480-6 BMI: 30.4 Code: 02959-9 Heart Rate 1: 67 bpm Height: 5'1" Code: 8302-2 SpO2: 97% Weight: 161 lb s Code: 84022-4 05/27/2018 Blood Pressure 1: 128/76 Code: 8480-6 BMI: 28.9 Code: 97599-4 Heart Rate 1: 74 bpm Height: 5'1" Code: 8302-2 SpO2: 99% Weight: 153 lb s Code: 73877-1 01/21/2018 Blood Pressure 1: 132/78 Code: 8480-6 BMI: 28.7 Code: 36531-6 Heart Rate 1: 112 bpm Height: 5'1" Code: 8302-2 SpO2: 98% Weight: 152 lb s Code: 48558-2 12/04/2017 Blood Pressure 1: 140/74 Code: 8480-6 BMI: 27.6 Code: 70140-6 Heart Rate 1: 76 bpm Height: 5'1" Code: 8302-2 SpO2: 97% Weight: 146 lb s Code: 13254-6 11/13/2017 Blood Pressure 1: 166/78 Code: 8480-6 BMI: 27.4 Code: 47546-1 Heart Rate 1: 78 bpm Height: 5'1" Code: 8302-2 SpO2: 98% Weight: 145 lb s Code: 01246-1 10/30/2017 Blood Pressure 1: 148/72 Code: 8480-6 BMI: 27.8 Code: 91282-2 Heart Rate 1: 92 bpm Height: 5'1" Code: 8302-2 SpO2: 96% Weight: 147 lb s Code: 05340-8 09/20/2017 Blood Pressure 1: 146/68 Code: 8480-6 BMI: 28.2 Code: 22847-5 Heart Rate 1: 66 bpm Height: 5'1" Code: 8302-2 SpO2: 99% Weight: 149 lb s Code: 04566-4 05/29/2017 Blood Pressure 1: 156/82 Code: 8480-6 BMI: 28.7 Code: 98071-8 Heart Rate 1: 71 bpm Height: 5'1" Code: 8302-2 SpO2: 96% Weight: 152 lb s Code: 56725-8 05/14/2017 Blood Pressure 1: 150/88 Code: 8480-6 BMI: 28.5 Code: 64797-0 Heart Rate 1: 71 bpm Height: 5'1" Code: 8302-2 SpO2: 98% Weight: 151 lb s Code: 55846-1 03/06/2017 Blood Pressure 1: 148/66 Code: 8480-6 BMI: 28.5 Code: 72478-8 Heart Rate 1: 78 bpm Height: 5'1" Code: 8302-2 SpO2: 98% Weight: 151 lb s Code: 23097-8 11/01/2016 Blood Pressure 1: 150/84 Code: 8480-6 BMI: 29.1 Code: 95333-9 Heart Rate 1: 71 bpm Height: 5'1" Code: 8302-2 SpO2: 97% Weight: 154 lb s Code: 33530-2 10/18/2016 Blood Pressure 1: 156/98 Code: 8480-6 Heart Rate 1: 68 bpm Height: 5'1" Code: 8302-2 SpO2: 98% Weight: Code: 42994-3 10/12/2016 Blood Pressure 1: 142/76 Code: 8480-6 BMI: 30.0 Code: 33926-8 Heart Rate 1: 76 bpm Height: 5'1" Code: 8302-2 SpO2: 95% Weight: 159 lb s Code: 97373-9 09/04/2016 Blood Pressure 1: 148/84 Code: 8480-6 Bl ood Pressure 1: 120/70 Code: 8480-6 BMI: 30.0 Code: 67088-8 Heart Rate 1: 72 bpm Height: 5'1" Code: 8302-2 SpO2: 94% Weight: 159 lbs Code: 26214-2 05/30/2016 Blood Pressure 1: 152/84 Code: 8480-6 BMI: 29.9 Code: 02477-7 Heart Rate 1: 76 bpm Height: 5'1" Code: 8302-2 SpO2: 97% Weight: 158 lb s 8 oz Code: 69311-1 05/01/2016 Blood Pressure 1: 146/60 Code: 8480-6 BMI: 29.9 Code: 40877-4 Heart Rate 1: 72 bpm Height: 5'1" Code: 8302-2 SpO2: 97% Weight: 158 lb s Code: 64784-3 02/29/2016 Blood Pressure 1: 152/82 Code: 8480-6 BMI: 30.4 Code: 05382-5 Heart Rate 1: 71 bpm Height: 5'1" Code: 8302-2 SpO2: 96% Weight: 161 lb s Code: 59893-1 02/03/2016 Blood Pressure 1: 148/88 Code: 8480-6 BMI: 30.6 Code: 30749-5 Heart Rate 1: 72 bpm Height: 5'1" Code: 8302-2 SpO2: 98% Weight: 162 lb s Code: 22850-9 12/21/2015 Blood Pressure 1: 180/78 Code: 8480-6 BMI: 30.9 Code: 16343-0 Heart Rate 1: 64 bpm Height: 5'1" Code: 8302-2 SpO2: 97% Weight: 163 lb s 8 oz Code: 38558-5 10/25/2015 Blood Pressure 1: 150/78 Code: 8480-6 BMI: 31.0 Code: 23696-7 Heart Rate 1: 73 bpm Height: 5'1" Code: 8302-2 SpO2: 98% Weight: 164 lb s Code: 31714-5 10/19/2015 Blood Pressure 1: 122/72 Code: 8480-6 BMI: 31.6 Code: 80114-0 Heart Rate 1: 88 bpm Height: 5'1" Code: 8302-2 SpO2: 98% Weight: 167 lb s Code: 40023-6 06/22/2015 Blood Pressure 1: 150/82 Code: 8480-6 BMI: 31.4 Code: 02881-7 Heart Rate 1: 86 bpm Height: 5'1" Code: 8302-2 SpO2: 96% Weight: 166 lb s Code: 84208-0 12/22/2014 Blood Pressure 1: 160/92 Code: 8480-6 BMI: 31.2 Code: 29234-9 Heart Rate 1: 85 bpm Height: 5'1" Code: 8302-2 SpO2: 97% Weight: 165 lb s Code: 50406-7 08/17/2014 Blood Pressure 1: 138/80 Code: 8480-6 BMI: 31.6 Code: 86124-9 Heart Rate 1: 77 bpm Height: 5'1" Code: 8302-2 SpO2: 97% Weight: 167 lb s Code: 26550-4 04/13/2014 Blood Pressure 1: 144/88 Code: 8480-6 BMI: 31.6 Code: 85264-4 Heart Rate 1: 90 bpm Height: 5'1" Code: 8302-2 Weight: 167 lbs Code: 72045 -7 12/11/2013 Blood Pressure 1: 168/90 Code: 8480-6 BMI: 32.3 Code: 41888-1 Heart Rate 1: 72 bpm Height: 5'1" Code: 8302-2 Weight: 171 lbs Code: 58066 -7 11/10/2013 Blood Pressure 1: 150/80 Code: 8480-6 BMI: 32.3 Code: 59541-2 Heart Rate 1: 76 bpm Height: 5'1" Code: 8302-2 Weight: 171 lbs Code: 24150 -7 08/11/2013 Blood Pressure 1: 152/80 Code: 8480-6 BMI: 32.5 Code: 01840-4 Heart Rate 1: 92 bpm Height: 5'1" Code: 8302-2 Temperature: 36.7 (C) / 98.0 (F) Weight: 172 lbs Code: 33376-2 05/12/2013 Blood Pressure 1: 142/102 Code: 8480-6 B lood Pressure 2: 144/98 Code: 8480-6 BMI: 34.2 Code: 09249-1 Heart Rate 1: 80 bpm Height: 5'1" Code: 8302-2 Weight: 181 lbs Code: 30292-1 01/06/2013 Blood Pressure 1: 138/76 Code: 8480-6 BMI: 34.6 Code: 75121-5 Heart Rate 1: 64 bpm Height: 5'1" Code: 8302-2 Weight: 183 lbs Code: 23395 -7 10/07/2012 Blood Pressure 1: 146/76 Code: 8480-6 BMI: 35.6 Code: 34772-7 Heart Rate 1: 76 bpm Height: 5'1" Code: 8302-2 Respiratory Rate: 20 bpm Weight: 1 88 lbs 8 oz Code: 78092-3 09/11/2012 Blood Pressure 1: 158/92 Code: 8480-6 BMI: 35.7 Code: 06687-7 Heart Rate 1: 76 bpm Height: 5'1" Code: 8302-2 Weight: 189 lbs Code: 23688 -7 07/15/2012 Blood Pressure 1: 158/100 Code: 8480-6 BMI: 36.3 Code: 72462-6 Heart Rate 1: 72 bpm Height: 5'1" Code: 8302-2 Respiratory Rate: 20 bpm Weight: 1 92 lbs Code: 88173-5 05/02/2012 Blood Pressure 1: 156/80 Code: 8480-6 BMI: 35.9 Code: 63798-1 Heart Rate 1: 72 bpm Height: 5'1" Code: 8302-2 Weight: 190 lbs Code: 96973 -7 03/28/2012 Blood Pressure 1: 133/88 Code: 8480-6 Heart Rate 1: 78 bpm Weight: 189 lbs Code: 84722-6 11/27/2011 Blood Pressure 1: 178/80 Code: 8480-6 BMI: 36.7 Code: 49096-0 Heart Rate 1: 72 bpm Height: 5'1" Code: 8302-2 Respiratory Rate: 20 bpm Weight: 1 94 lbs Code: 98978-7 10/25/2011 Blood Pressure 1: 122/62 Code: 8480-6 BMI: 37.0 Code: 67136-8 Heart Rate 1: 80 bpm Height: 5'1" Code: 8302-2 Respiratory Rate: 16 bpm Weight: 1 96 lbs Code: 81538-0 10/16/2011 Blood Pressure 1: 136/70 Code: 8480-6 He art Rate 1: 76 bpm 10/11/2011 Blood Pressure 1: 132/60 Code: 8480-6 Heart Rate 1: 84 bpm Respiratory Rate: 20 bpm Weight: 194 lbs Code: 04134-2 10/04/2011 Blood Pressure 1: 152/90 Code: 8480-6 Heart Rate 1: 88 bpm Respiratory Rate: 20 bpm Weight: 193 lbs Code: 73081-3 09/25/2011 Blood Pressure 1: 146/78 Code: 8480-6 Heart Rate 1: 80 bpm Weight: 194 lbs Code: 30875-4 07/31/2011 Blood Pressure 1: 128/78 Code: 8480-6 Bl ood Pressure 2: / Code: 8480-6 BMI: 37.1 Code: 61703-3 Heart Rate 1: 72 bpm Height: 5'1" Code: 8302-2 Respiratory Rate: 16 bpm SpO2: % Temperature: .0 (C) / 32.0 (F) Weig ht: 196 lbs 8 oz Code: 38095-5 05/22/2011 Blood Pressure 1: 147/71 Code: 8480-6 BMI: 18.7 Code: 07338-0 Heart Rate 1: 77 bpm Height: 7'1" Code: 8302-2 Weight: 192 lbs Code: 69810 -7 05/05/2011 Blood Pressure 1: 178/88 Code: 8480-6 BMI: 37.4 Code: 52266-6 Heart Rate 1: 80 bpm Height: 5' Code: 8302-2 Respiratory Rate: 16 bpm Weight: 193 lbs Code: 73762-7 Functional Status No Functional Status data Reason [...] Encounter Performer Location Location Address Codes Date ([id number]) [id number] EST. PATIENT, LEVEL IV Diagnosis: Type 2 diabetes mellitus with hyperglycemia[ICD10: E11.65] Diagnosis: Atrophy of thyroid (acquired)[ICD10: E03.4] Diagnosis: Essential (primary) hypertension[ICD10: I10] Clarice Eliane MD, [facility] [address] [place] [address] CPT-4: 9921 4 10/17/2022 ([id number]) [id number] EST. PATIENT, LEVEL IV Diagnosis: Essential (primary) hypertension[ICD10: I10] Diagnosis: Atrophy of thyroid (acquired)[ICD10: E03.4] Diagnosis: Type 2 diabetes mellitus with hyperglycemia[ICD10: E11.65] Clarice Elaine MD, [facility] [address] [place] [address] CPT-4: 44538 06/20/2022 ([id number]) 87089 EST. PATIENT, LEVEL IV Diagnosis: Cough in adult[ICD10: R05.9] Diagnosis: Gastro-esophageal reflux disease with esophagitis[ICD10: K21.00] Diagnosis: Esophageal pain[ICD10: K22.89] Clarice Elaine MD, [facility] [address] [place] [address] CPT-4: 14185 06/05 ([id number]) 72728 EST. PATIENT, LEVEL IV Diagnosis: Pancreatic cyst[ICD10: K86.2] Diagnosis: Rash and nonspecific skin eruption[ICD10: R21] Diagnosis: Cyst of buttocks[ICD10: L72.9] Clarice Elaine MD, [facility] [address] [place] [address] CPT-4: 76418 02/23 ([id number]) 40311 EST. PATIENT, LEVEL III Diagnosis: Cellulitis of left buttock[ICD10: L03.317] Socorro Elaine MD, [facility] [address] [place] [address] CPT-4: 9921 3 02/20/2022 ([id number]) [id number] EST. PATIENT, LEVEL IV Diagnosis: Essential (primary) hypertension[ICD10: I10] Diagnosis: Type 2 diabetes mellitus with hyperglycemia[ICD10: XUB1644] Diagnosis: Atrophy of thyroid (acquired)[ICD10: E03.4] Diagnosis: Paroxysmal atrial fibrillation[ICD10: I48.0] Clarice Elaine MD, [facility] [address] [place] [address] CPT-4: 9921 4 02/06/2022 ([id number]) [id number] EST. PATIENT, LEVEL IV Diagnosis: Essential (primary) hypertension[ICD10: I10] Diagnosis: Mild intermittent asthma in adult without complication[ICD10: J45.21] Diagnosis: Atrophy of thyroid (acquired)[ICD10: E03.4] Diagnosis: Type 2 diabetes mellitus without complications[ICD10: E11.9] Clarice Elaine MD, [facility] [address] [place] [address] CPT-4: 70350 08/08/2021 ([id number]) 83843 EST. PATIENT, LEVEL IV Diagnosis: Essential (primary) hypertension[ICD10: I10] Diagnosis: Mild intermittent asthma in adult without complication[ICD10: J45.21] Diagnosis: Atrophy of thyroid (acquired)[ICD10: E03.4] Diagnosis: Type 2 diabetes mellitus without complications[ICD10: E11.9] Clarice Elaine MD, [facility] [address] [place] [address] CPT-4: 56677 04/05/2021 ([id number]) 42186 EST. PATIENT, LEVEL IV Diagnosis: Essential (primary) hypertension[ICD10: I10] Diagnosis: Atrophy of thyroid (acquired)[ICD10: E03.4] Diagnosis: Type 2 diabetes mellitus without complications[ICD10: E11.9] Clarice Elaine MD, [facility] [address] [place] [address] CPT-4: 63024 11/30/2020 ([id number]) 99886 EST. PATIENT, LEVEL IV Diagnosis: Atrophy of thyroid (acquired)[ICD10: E03.4] Diagnosis: Essential (primary) hypertension[ICD10: I10] Diagnosis: Type 2 diabetes mellitus with hyperglycemia[ICD10: E11.65] Diagnosis: Paroxysmal atrial fibrillation[ICD10: I48.0] Clarice Elaine MD, [facility] [address] [place] [address] CPT-4: 9921 4 08/05/2020 ([id number]) 59412 EST. PATIENT, LEVEL IV Diagnosis: Influenza vaccine administered[ICD10: Z23] Diagnosis: Essential (primary) hypertension[ICD10: I10] Diagnosis: Atrophy of thyroid (acquired)[ICD10: E03.4] Diagnosis: Type 2 diabetes mellitus without complications[ICD10: E11.9] Clarice Elaine MD, [facility] [address] [place] [address] CPT-4: 25297 04/07/2020 ([id number]) 30318 EST. PATIENT, LEVEL III Diagnosis: Type 2 diabetes mellitus without complications[ICD10: E11.9] Clarice Elaine MD, [facility] [address] [place] [address] CPT-4: 91664 02/12/2020 ([id number]) 34920 EST. PATIENT, LEVEL III Diagnosis: Essential (primary) hypertension[ICD10: I10] Diagnosis: Type 2 diabetes mellitus without complications[ICD10: E11.9] Clarice Elaine [facility] [address] [place], [place] [address] CPT-4: 11490 12/09/2019 ([id number]) 19224 EST. PATIENT, LEVEL IV Diagnosis: Essential (primary) hypertension[ICD10: I10] Diagnosis: Type 2 diabetes mellitus with hyperglycemia[ICD10: E11.65] Diagnosis: Atrophy of thyroid (acquired)[ICD10: E03.4] Clarice Elaine MD, [facility] [address] [place] [address] CPT-4: 9921 4 09/09/2019 ([id number]) 68429 EST. PATIENT, LEVEL IV Diagnosis: Type 2 diabetes mellitus with hyperglycemia[ICD10: E11.65] Diagnosis: Essential (primary) hypertension[ICD10: I10] Diagnosis: VACCIN FOR INFLUENZA[ICD10: Z23] Diagnosis: Mild intermittent asthma in adult without complication[ICD10: J45.20] Clarice Elaine MD, [facility] [address] [place] [address] CPT-4: 34902 05/13/2019 ([id number]) 10466 EST. PATIENT, LEVEL III Diagnosis: Type 2 diabetes mellitus without complications[ICD10: E11.9] Diagnosis: Essential (primary) hypertension[ICD10: I10] Clarice Elaine MD, [facility] [address] [place] [address] CPT-4: 9921 3 02/05/2019 ([id number]) 73524 EST. PATIENT, LEVEL IV Diagnosis: Essential (primary) hypertension[ICD10: I10] Diagnosis: Mild intermittent asthma with (acute) exacerbation[ICD10: J45.21] Diagnosis: Type 2 diabetes mellitus with hyperglycemia[ICD10: E11.65] Diagnosis: Acute bronchitis due to other specified organisms[ICD10: J20.8] Clarice Elaine MD, [facility] [address] [place] [address] CPT-4: 69408 01/21/2019 ([id number]) 37623 EST. PATIENT, LEVEL IV Diagnosis: Cough[ICD10: R05] Diagnosis: Atrophy of thyroid (acquired)[ICD10: E03.4] Diagnosis: Type 2 diabetes mellitus with hyperglycemia[ICD10: E11.65] Clarice Elaine MD, [facility] [address] [place] [address] CPT-4: 25653 09/23/2018 ([id number]) 45304 EST. PATIENT, LEVEL IV Diagnosis: Type 2 diabetes mellitus with hyperglycemia[ICD10: E11.65] Diagnosis: Atrophy of thyroid (acquired)[ICD10: E03.4] Clarice Elaine MD, [facility] [address] [place] [address] CPT-4: 9921 4 05/27/2018 ([id number]) 76636 EST. PATIENT, LEVEL IV Diagnosis: Type 2 diabetes mellitus without complications[ICD10: E11.9] Diagnosis: Paroxysmal atrial fibrillation[ICD10: I48.0] Diagnosis: Essential (primary) hypertension[ICD10: I10] Clarice Elaine MD, [facility] [address] [place] [address] CPT-4: 9921 4 01/21/2018 ([id number]) 70881 EST. PATIENT, LEVEL III Diagnosis: Paroxysmal atrial fibrillation[ICD10: I48.0] Diagnosis: Other specified anemias[ICD10: D64.89] Clarice Bay MD, [facility] [address] [place] [address] CPT-4: 9921 3 12/04/2017 ([id number]) 83311 EST. PATIENT, LEVEL IV Diagnosis: Benign paroxysmal vertigo, bilateral[ICD10: H81.13] Diagnosis: Essential (primary) hypertension[ICD10: I10] Diagnosis: Other fatigue[ICD10: R53.83] Diagnosis: Other specified anemias[ICD10: D64.89] Diagnosis: Other allergic rhinitis[ICD10: J30.89] Socorro Bay MD, [facility] [address] [place] [address] CPT-4: 9921 4 11/13/2017 ([id number]) 65830 EST. PATIENT, LEVEL III Diagnosis: Mild intermittent asthma with (acute) exacerbation[ICD10: J45.21] Diagnosis: Cough[ICD10: R05] Socorro Elaine MD, [facility] [address] [place] [address] CPT-4: 65556 10/30/2017 ([id number]) 35600 EST. PATIENT, LEVEL IV Diagnosis: Gastro-esophageal reflux disease without esophagitis[ICD10: K21.9] Diagnosis: Type 2 diabetes mellitus without complications[ICD10: E11.9] Diagnosis: Other specified anemias[ICD10: D64.89] Diagnosis: Paroxysmal atrial fibrillation[ICD10: I48.0] Socorro Elaine MD, [facility] [address] [place] [address] CPT-4: 9921 4 09/20/2017 ([id number]) 05292 EST. PATIENT, LEVEL III Diagnosis: Essential (primary) hypertension[ICD10: I10] Clarice Elaine MD, [facility] [address] [place] [address] CPT-4: 9921 3 05/29/2017 ([id number]) 29709 EST. PATIENT, LEVEL III Diagnosis: Acute bronchitis due to other specified organisms[ICD10: J20.8] Diagnosis: Cough[ICD10: R05] Diagnosis: Other chest pain[ICD10: R07.89] Clarice sales MD, [facility] [address] [place] [address] CPT-4: 9921 3 05/14/2017 ([id number]) 77775 EST. PATIENT, LEVEL IV Diagnosis: Type 2 diabetes mellitus with hyperglycemia[ICD10: E11.65] Diagnosis: Essential (primary) hypertension[ICD10: I10] Diagnosis: Mild intermittent asthma with (acute) exacerbation[ICD10: J45.21] Clarice Elaine MD, [facility] [address] [place] [address] CPT-4: 93882 03/06/2017 ([id number]) 81089 EST. 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 PATIENT, LEVEL III Diagnosis: Mild intermittent asthma with (acute) exacerbation[ICD10: J45.21] Diagnosis: Gastro-esophageal reflux disease without esophagitis[ICD10: K21.9] Jayne Elaine MD, [facility] [address] [place] [address] CPT-4: 61639 10/12/2016 ([id number]) 76161 EST. PATIENT, LEVEL IV Diagnosis: Type 2 diabetes mellitus with hyperglycemia[ICD10: E11.65] Diagnosis: Essential (primary) hypertension[ICD10: I10] Diagnosis: Mild intermittent asthma with (acute) exacerbation[ICD10: J45.21] Clarice Elaine MD, [facility] [address] [place] [address] CPT-4: 44488 09/04/2016 28738 EST. PATIENT, LEVEL III Diagnosis: Pain in left ankle and joints of left foot[ICD10: M25.572] Diagnosis: Localized edema[ICD10: R60.0] Jayne Elaine MD, [facility] [address] [place] [address] CPT-4: 22985 05/30 ([id number]) 63710 EST. PATIENT, LEVEL III Diagnosis: Type 2 diabetes mellitus with hyperglycemia[ICD10: E11.65] Clarice Elaine MD, [facility] [address] [place] [address] CPT-4: 45456 05/01/2016 ([id number]) 63781 EST. PATIENT, LEVEL IV Diagnosis: Type 2 diabetes mellitus without complications[ICD10: E11.9] Diagnosis: Moderate persistent asthma, uncomplicated[ICD10: J45.40] Diagnosis: Paroxysmal atrial fibrillation[ICD10: I48.0] Clarice Elaine MD, [facility] [address] [place] [address] CPT-4: 9921 4 02/29/2016 ([id number]) 92205 EST. PATIENT, LEVEL IV Diagnosis: Paroxysmal atrial fibrillation[ICD10: I48.0] Diagnosis: Hypothyroidism, unspecified[ICD10: E03.9] Diagnosis: Type 2 diabetes mellitus without complications[ICD10: E11.9] Diagnosis: Essential (primary) hypertension[ICD10: I10] Diagnosis: Acute maxillary sinusitis, unspecified[ICD10: J01.00] Diagnosis: Moderate persistent asthma, uncomplicated[ICD10: J45.40] Clarice Elaine MD, [facility] [address] [place] [address] CPT-4: 60159 02/03/2016 ([id number]) 16471 EST. PATIENT, LEVEL IV Diagnosis: Type 2 diabetes mellitus without complications[ICD10: E11.9] Diagnosis: Hypothyroidism, unspecified[ICD10: E03.9] Diagnosis: Moderate persistent asthma, uncomplicated[ICD10: J45.40] Diagnosis: Essential (primary) hypertension[ICD10: I10] Clarice Elaine MD, [facility] [address] [place] [address] CPT-4: 9921 4 12/21/2015 ([id number]) 62263 EST. 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 PATIENT, LEVEL IV Diagnosis: Type 2 diabetes mellitus without complications[ICD10: E11.9] Diagnosis: Essential (primary) hypertension[ICD10: I10] Diagnosis: Hypothyroidism, unspecified[ICD10: E03.9] Clarice Elaine MD, [facility] [address] [place] [address] CPT-4: 9921 4 06/22/2015 ([id number]) 05765 EST. PATIENT, LEVEL IV Diagnosis: ESSENTIAL HYPERTENSION[ICD9: 401.9] Diagnosis: DIABETES TYPE II[ICD9: 250.00] Clarice Elaine MD, [facility] [address] [place] [address] CPT-4: 91972 12/22 ([id number]) 30782 EST. PATIENT, LEVEL IV Diagnosis: ACUTE BRONCHITIS[ICD9: 466.0] Diagnosis: Acute asthma exacerbation[ICD9: 493.92] Diagnosis: ESSENTIAL HYPERTENSION[ICD9: 401.9] Diagnosis: DIABETES TYPE II[ICD9: 250.00] Clarice Elaine MD, [facility] [address] [place] [address] CPT-4: 23599 08/17 ([id number]) 94980 EST. PATIENT, LEVEL IV Diagnosis: DIABETES TYPE II[ICD9: 250.00] Diagnosis: ESSENTIAL HYPERTENSION[ICD9: 401.9] Diagnosis: Acute asthma exacerbation[ICD9: 493.92] Clarice Elaine MD, [facility] [address] [place] [address] CPT-4: 9921 4 04/13/2014 ([id number]) 29554 EST. PATIENT, LEVEL IV Diagnosis: DIABETES TYPE II[ICD9: 250.00] Diagnosis: ESSENTIAL HYPERTENSION[ICD9: 401.9] Diagnosis: HYPOTHYROIDISM[ICD9: 244.9] Clarice Elaine MD, [facility] [address] [place] [address] CPT-4: 87650 12/11 ([id number]) 52099 EST. PATIENT, LEVEL IV Diagnosis: DM W/O COMPLICATION TYPE II, UNCONTROLLED[ICD9: 250.02] Diagnosis: ESSENTIAL HYPERTENSION[ICD9: 401.9] Clarice sandhu MD, [facility] [address] [place] [address] CPT-4: 9921 4 11/10/2013 ([id number]) 99815 EST. PATIENT, LEVEL IV Diagnosis: DM W/O COMPLICATION TYPE II, UNCONTROLLED[SNOMED: 70330672] Diagnosis: ESSENTIAL HYPERTENSION[SNOMED: 14153433] Diagnosis: ACUTE BRONCHITIS[ICD9: 466.0] Clarice Elaine MD, [facility] [address] [place] [address] CPT-4: 91510 08/11 ([id number]) 97577 EST. PATIENT, LEVEL IV Diagnosis: DM W/O COMPLICATION TYPE II, UNCONTROLLED[SNOMED: 88047012] Diagnosis: ATRIAL FIBRILLATION[ICD9: 427.31] Diagnosis: ESSENTIAL HYPERTENSION[SNOMED: 89551011] Clarice Elaine MD, [facility] [address] [place] [address] CPT-4: 9921 4 05/12/2013 ([id number]) 49562 EST. PATIENT, LEVEL IV Diagnosis: DM W/O COMPLICATION TYPE II, UNCONTROLLED[SNOMED: 70381694] Diagnosis: ESSENTIAL HYPERTENSION[SNOMED: 79786503] Clarice Elaine MD, [facility] [address] [place] [address] CPT-4: 9921 4 01/06/2013 ([id number]) 01427 EST. PATIENT, LEVEL IV Diagnosis: DIABETES TYPE II[SNOMED: 905285641] Diagnosis: ESSENTIAL HYPERTENSION[SNOMED: 30991832] Diagnosis: Acute asthma exacerbation[ICD9: 493.92] Diagnosis: Fatigue[ICD9: 780.79] Clarice Elaine MD, [facility] [address] [place] [address] CPT-4: 29884 10/07/2012 ([id number]) 71848 EST. PATIENT, LEVEL IV Diagnosis: DM W/O COMPLICATION TYPE II, UNCONTROLLED[SNOMED: 87785964] Diagnosis: Lump of breast, right[ICD9: 611.72] Diagnosis: Lump on neck[ICD9: 784.2] Clarice Elaine MD, [facility] [address] [place] [address] CPT-4: 24902 09/11/2012 ([id number]) 89717 EST. PATIENT, LEVEL IV Diagnosis: ESSENTIAL HYPERTENSION[SNOMED: 08370286] Diagnosis: Atrial fibrillation[ICD9: 427.31] Diagnosis: Fatigue[ICD9: 780.79] Diagnosis: Encounter for monitoring digoxin therapy[ICD9: V58.83] Clarice Elaine MD, [facility] [address] [place] [address] CPT-4: 64930 07/15/2012 ([id number]) 09690 EST. PATIENT, LEVEL IV Diagnosis: DIABETES TYPE II[SNOMED: 984014356] Diagnosis: ESSENTIAL HYPERTENSION[SNOMED: 37730709] Clarice Elaine MD, [facility] [address] [place] [address] CPT-4: 9921 4 05/02/2012 ([id number]) 10637 EST. PATIENT, LEVEL IV Diagnosis: DM W/O COMPLICATION TYPE II, UNCONTROLLED[SNOMED: 48070449] Diagnosis: ESSENTIAL HYPERTENSION[SNOMED: 96503879] Diagnosis: HYPERLIPIDEMIA[ICD9: 272.4] Clarice Elaine MD, [facility] [address] [place] [address] CPT-4: 91687 03/28 ([id number]) 29396 EST. PATIENT, LEVEL IV Diagnosis: DM W/O COMPLICATION TYPE II, UNCONTROLLED[SNOMED: 46116090] Diagnosis: ESSENTIAL HYPERTENSION[SNOMED: 22759197] Clarice Elaine MD, [facility] [address] [place] [address] CPT-4: 9921 4 11/27/2011 ([id number]) 48941 EST. PATIENT, LEVEL III Diagnosis: ESSENTIAL HYPERTENSION[SNOMED: 73867580] Diagnosis: ANEMIA[ICD9: 285.9] Diagnosis: Gastritis[ICD9: 535.50] Clarice Elaine MD, [facility] [address] [place] [address] CPT-4: 30476 10/25/2011 ([id number]) 35991 EST. PATIENT, LEVEL III Diagnosis: Anemia associated with acute blood loss[ICD9: 285.1] Diagnosis: Gastritis, acute with hemorrhage[ICD9: 535.01] Clarice Elaine MD, [facility] [address] [place] [address] CPT-4: 9921 3 10/11/2011 ([id number]) 94186 EST. PATIENT, LEVEL IV Diagnosis: Hematochezia[ICD9: 578.1] Diagnosis: ENCNTR LONG-RX USE NEC[ICD9: V58.69] Diagnosis: Abdominal pain[ICD9: 789.00] Clarice Elanie MD, [facility] [address] [place] [address] CPT-4: 64194 10/03 ([id number]) 39715 EST. PATIENT, LEVEL IV Diagnosis: DIABETES TYPE II[SNOMED: 528362608] Diagnosis: ESSENTIAL HYPERTENSION[SNOMED: 50354817] Diagnosis: Coronary artery disease[ICD9: 414.00] Clarice Elaine MD, [facility] [address] [place] [address] CPT-4: 9921 4 09/25/2011 ([id number]) 39103 EST. PATIENT, LEVEL IV Diagnosis: Muscle spasm[ICD9: 728.85] Diagnosis: Arthralgia[ICD9: 719.40] Diagnosis: ESSENTIAL HYPERTENSION[SNOMED: 27020362] Clarice Elaine MD, [facility] [address] [place] [address] CPT-4: 9921 4 07/31/2011 89391 EST. PATIENT, LEVEL III Diagnosis: ACUTE SINUSITIS[ICD9: 461.9] Diagnosis: Cervicalgia[ICD9: 723.1] Socorro Elaine MD, [facility] [address] [place] [address] CPT-4: 52835 05/22/2011 88760 EST. PATIENT, LEVEL IV Diagnosis: HYPERLIPIDEMIA[ICD9: 272.4] Diagnosis: HYPOTHYROIDISM[ICD9: 244.9] Diagnosis: DM W/O COMPLICATION TYPE II, UNCONTROLLED[SNOMED: 64116219] Clarice Elaine MD, [facility] [address] [place] [address] CPT-4: 93954 05/05/2011 Plan of Care Planned Activity Notes [...] blood thinners. 10/17/2022 Appointment: Clarice Elaine WPtel: [address] [place], [place] [phone] (15 min) Moderate 10/17/2022 Patient Education: Patient [...] blood thinners. 06/20/2022 Appointment: Clarice Elaine WPtel: [phone] [place] (15 min) Moderate 06/20/2022 Patient Education: [...] gi symptoms 06/05/2022 Appointment: Clarice Elaine WPtel: [phone] [facility] Appointment 06/05/2022 Patient Education: Patient Medication [...] if worsens 02/23/2022 Appointment: Socorro Salmeron WPtel: [phone] (30 min) Complex 02/23/2022 Patient Education: Patient Medication Summary Completed 02/23/2022 Visit Plan: Cellulitis - left buttock -r x for oral antibiotics to take as directed, return to clinic Thursday for recheck, call for acute change in symptoms, worsening redness, warmth, discharge. 02/20/2022 Appointment: Socorro Salmeron WPtel: [phone] (30 min) Complex 02/20/2022 Patient Education: Patient [...] 100mg daily 02/06/2022 Appointment: Clarice Elaine WPtel: [address] [place], [place] [phone] (30 min) Complex 02/06/2022 Patient Education: Patient Medication Summary Completed 02/06/2022 Patient Education: Hypertension Completed 02/06/2022 Patient Education: Patient Medication Summary Completed 01/04/2022 Appointment: Socorro Salmeron WPtel: [address] [place], [place] [phone] (15 min) Moderate 12/12/2021 Visit Plan: Hypertension [...] Education: Diabetes Completed 08/08/2021 Appointment: Socorro Salmeron WPtel: [phone] (30 min) Complex 08/01/2021 Visit Plan: Hypertension [...] in clinic 04/05/2021 [facility]ment[facility] [phone] (15 min) Moderate 04/05/2021 Patient Education: [...] monitor symptoms. 11/30/2020 App[facility]ment: [facility] [address] [phone] (15 min) Moderate 11/30/2020 Patient Education: Patient [...] HFA 08/05/2020 Appointment: Clarice Elaine WPtel: [address] [phone] (15 min) Moderate 08/05/2020 Patient Education: Patient [...] monitor symptoms. 04/07/2020 Appointment: Clarice Elaine WPtel: [phone] (15 min) Moderate 04/07/2020 Patient Education: Patient [...] starting to become less controlled. 02/12/2020 Appointment: Clarice Elaine WPtel: [address] [phone] [facility] 02/12/2020 Patient Education: Patient Medication Summary Completed [...] at home. 12/09/2019 Appointment: Clarice Elaine WPtel: [address] [phone] [facility] 12/09/2019 Patient Education: Patient Medication Summary [...] becoming uncontrolled. 09/09/2019 Appointment: Clarice Elaine WPtel: [address] [phone] [place] (15 min) Moderate 09/09/2019 Patient Education: Patient [...] in clinic 05/13/2019 Appointment: Clarice Elaine WPtel: [phone] [place] (15 min) Moderate 05/13/2019 Patient Education: Patient Medication Summary Completed 05/13/2019 Patient Education: Diabetes Completed 05/13/2019 Patient Education: Patient Medication Summary Completed 04/10/2019 Care Plan: A1C HPLC [facility] : [id number] Pending 04/10/2019 Care Plan: TSH Pending 04/10/2019 [...] starting to become less controlled. 02/05/2019 Appointment: [place] [facility] [address] [phone] (15 min) Moderate 02/05/2019 Patient Education: [...] insulin. 01/21/2019 Appointment: [facility]el[facility] [address] [phone] (15 min) Moderate 01/21/2019 Patient Education: Patient Medication Summary Completed 01/21/2019 Patient Education: Diabetes Completed 01/21/2019 Referral: [facility] Patient informed. Referral info faxed. Completed 09/26/2018 [...] less controlled. 09/23/2018 Appointment: Clarice Elaine WPtel: [phone] (15 min) Moderate 09/23/2018 Patient Education: Patient Medication Summary Completed 09/23/2018 Patient Education: Diabetes Completed 09/23/2018 Care Plan: Referral Order SNOMED-CT : [id number] Pending 09/23/2018 Appointment: Clarice Elaine WPtel: [address] [phone] (15 min) Moderate 05/27/2018 Patient Education: Patient [...] becoming uncontrolled. 01/21/2018 Appointment: Clarice Elaine WPtel: [phone] (15 min) Moderate 01/21/2018 Patient Education: Patient [...] venofer IV. 12/04/2017 Appointment: Clarice Elaine WPtel: [facility] [place] [phone] (15 min) Moderate 12/04/2017 Patient Education: Patient [...] instructions/medication interventions. HTN-elevated today- monitor at home Wrsock-zwudtey-eprvg labs Allergies-add flonase nasal spray 11/13/2017 Appointment: Socorro Salmeron WPtel: [phone] (30 min) Complex 11/13/2017 Patient Education: Patient [...] changes. 10/30/2017 Appointment: Socorro Salmeron WPtel: [facility] [place] [address] (30 min) Complex 10/30/2017 Patient Education: Patient Medication Summary Completed 10/30/2017 Appointment: Clarice Elaine WPtel: [address] [place] [address] (15 min) Moderate 09/25/2017 Visit Plan: GERD-continue protonix and c arafate-low spice diet -call if symptoms uncontrolled Melana-history of anemia-check Hgb-stay off aspirin per Dr Aguilar Afib-now in NSR -continue xarelto-follow up with Dr Aguilar as scheduled DM- check Hgb A1C 09/20/2017 Appointment: Socorro Salmeron WPtel: [address] [place], [place] [phone] (30 min) Complex 09/20/2017 Patient Education: Patient Medication Summary Completed 09/20/2017 Appointment: Clarice Elaine WPtel: [address] [place], [place] [phone] (15 min) Moderate 06/26/2017 Visit Plan: Hypertension [...] removal process. 05/29/2017 Appointment: Clarice Elaine WPtel: [address] [phone] (15 min) Moderate 05/29/2017 Patient Education: Patient Medication Summary Completed 05/29/2017 Patient Education: Hypertension Completed 05/29/2017 Visit Plan: Bronchitis - acute case of b ronchitis identified. Pt has been given antibiotics, breathing treatments as appropriate, and pt has been instructed to call if symptoms are not improved, or if symptoms acutely worsen. Chest pain - chest wall - toradol shot hospira [id number] november 2018 05/14/2017 Appointment: Clarice Elaine WPtel: [address] [phone] (15 min) Moderate 05/14/2017 Patient Education: Patient [...] today. 03/06/2017 Appointment: Clarice Elaine WPtel: [address] [phone] (15 min) Moderate 03/06/2017 Patient Education: Patient Medication Summary Completed 03/06/2017 Patient Education: Hypertension Completed 03/06/2017 Appointment: Clarice Elaine WPtel: [address] [phone] (15 min) Moderate 12/05/2016 Visit Plan: Hypertension [...] treatment. 11/01/2016 Appointment: Clarice Elaine WPtel: [address] [phone] [place] (15 min) Moderate 11/01/2016 Patient Education: Patient Medication Summary Completed 11/01/2016 Visit Plan: ADMIT FROM CLINIC TO [facility] - PT IS ACUTELY ILL, REQUIRES HOSPITALIZATION. THE PATIENT HAS BEEN EVALUATED IN CLINIC AND THIS STANDS THE HOSPITAL HISTORY AND PHYSICAL EXAMINATION. THE PATIENT HAS BEEN SENT TO THE HOSPITAL WITH WRITTEN ORDERS FOR TREATMENT AND EVALUATION OF THE ACUTE ILLNESS. 10/18/2016 App[facility]ment: [phone] (15 min) Moderate 10/18/2016 Patient Education: Patient [...] changes 10/12/2016 Appointment: Jay[phone] (30 min) Complex 10/12/2016 Patient Education: [...] home. 09/04/2016 App[facility]ment: [id number] (15 min) Moderate 09/04/2016 Patient Education: Patient Medication Summary Completed 09/04/2016 Patient Education: Obesity Completed 0 09/04/2016 Patient Education: Hypertension Completed 09/04/2016 Appointment: Jayne Ragland [facility]el[phone] [facility] - Annual Wellness Visit 07/2015 Visit Plan: [...] glucose control. 05/01/2016 Appointment: Clarice Elaine WPtel: [facility] [address] (15 min) Moderate 05/01/2016 Patient Education: [...] acute changes 02/29/2016 Appointment: Clarice Elaine WPtel: [facility] [place] [phone] Surgical Procedure 02/29/2016 Patient Education: Patient Medication [...] pressure readings. 12/21/2015 Appointment: Clarice Elaine WPtel: [address] [place], [place] [phone] (15 min) Moderate 12/21/2015 Patient Education: Patient [...] today 10/25/2015 Appointment: Clarice Elaine WPtel: 101 [phone] (15 min) Moderate 10/25/2015 Patient Education: Patient [...] ACUTE ILLNESS. 10/19/2015 Appointment: Socorro Salmeron [facility]el[phone] (30 min) Complex 10/19/2015 Patient Education: Patient [...] at home. 08/17/2014 Appointment: Clarice Elaine WPtel: [address] [place], [place] [phone] Follow up 08/17/2014 Patient Education: Patient Medication [...] prn albuterol. 04/13/2014 Appointment: [facility]el[phone] Follow up 04/13/2014 Patient Education: Patient [...] of control. 12/11/2013 Appointment: Clar[facility]Ptel[phone] [phone] [place] Follow up 12/11/2013 Patient Education: [...] concerns. 11/10/2013 Appointment: Clar[facility]Ptel[phone] [phone] [place] Follow up 11/10/2013 Patient Education: Patient Medication Summary Completed 11/10/2013 Patient Education: Hypertension Completed 11/10/2013 Appointment: Clar[facility]Ptel[phone] [place] Lab Draw 11/04/2013 Patient Education: [...] patient's pharmacy. 08/11/2013 Appointment: Clarice Elaine WPtel: [facility]3 [id number] [place] [address] Follow up 08/11/2013 Patient Education: Patient Medication Summary Completed 08/11/2013 Patient Education: Hypertension Completed 08/11/2013 Appointment: Clarice Elaine WPtel: [facility]4 [id number] [place] [address] Follow up 05/12/2013 Patient Education: Patient Medication [...] glucose control. 01/06/2013 Appointment: Clarice Elaine WPtel: [facility]6 [phone] [place] Follow up 01/06/2013 Patient Education: Patient [...] today. 10/07/2012 Appointment: Clar[facility]Ptel[phone] [phone] Follow up 10/07/2012 Patient Education: Patient [...] ultrasound 09/11/2012 Appointment: Clarice [facility]Ptel[facility] [phone] [phone] [place] Follow up 09/11/2012 Patient Education: Patient [...] level. 07/15/2012 Appointment: Clar[facility]Ptel[phone] [phone] Follow up 07/15/2012 Patient Education: Patient [...] Plavix. 05/02/2012 Appointment: Clar[facility]Ptel[phone] Follow up 05/02/2012 Patient Education: Patient [...] ASPIRIN COMPELTELY. 03/28/2012 Appointment: Clarice Elaine WPtel: [address] [place], [place] [phone] Follow up 03/28/2012 Patient Education: Patient Medication [...] home. 11/27/2011 Appointment: Clarice Elaine WPtel: [facility]3 [phone] Follow up 11/27/2011 Patient Education: Patient Medication Summary Completed 11/27/2011 Patient Education: High Blood Pressure: Essential Hypertension Completed 11/27/2011 Patient Education: Patient Medication Summary Completed 11/06/2011 Appointment: Clarice Elaine WPtel: [facility]7 [phone] Other 11/03/2011 Appointment: Clarice Elaine WPtel: [address] [place], [place] [phone] Other 11/02/2011 Appointment: Clarice Elaine WPtel: [address] [place], [place] [phone] Lab Draw 10/31/2011 Visit Plan: Hypertension - [...] times daily. 10/25/2011 Appointment: Clarice Elaine WPtel: [facility]9 [phone] Follow up 10/25/2011 Patient Education: Patient Medication Summary Completed 10/25/2011 Patient Education: High Blood Pressure: Essential Hypertension Completed 10/25/2011 Appointment: Clarice Elaine WPtel: [address] [place] [address] Lab Draw 10/16/2011 Patient Education: Patient Medication [...] from 10.6 to 11.4 10/11/2011 Appointment: Clarice Elaien WPtel: [facility]6 [place] [phone] Other 10/11/2011 Patient Education: Patient Medication Summary Completed 10/11/2011 Appointment: Clarice Elaine WPtel: [facility] Other 10/10/2011 Visit Plan: Abdominal pain and [...] stable. 10/04/2011 Appointment: Clarice Elaine WPtel: [facility]7 [phone] Follow up 10/04/2011 Patient Education: Patient Medication [...] given injections into trigger points today in clin. Muscle spasms - pt given RX for flexeril to be used at 2.5mg q 8 hours prn for pain. Pt to call if symptoms do not improve. 09/25/2011 Appointment: Clarice Elaine WPtel: [facility] Other 09/25/2011 Patient Education: Patient Medication Summary Completed 09/25/2011 Patient Education: High Blood Pressure: Essential Hypertension Completed 09/25/2011 Appointment: Clarice Elaine WPtel: [address] [place] [address] Other 07/31/2011 Patient Education: Patient Medication Summary [...] on use. 05/22/2011 Appointment: Socorro Salmeron WPtel: [facility]9 [facility] [place] [address] Other 05/22/2011 Patient Education: Patient Medication Summary [...] dose increased. 05/05/2011 Appointment: Clarice Elaine WPtel: [address] [place], [place] [phone] [place] [address] Other 05/05/2011 Patient Education: Patient Medication Summary Completed 05/05/2011 Patient Education: High Cholesterol Compl eted 05/05/2011 Appointment: Clarice Elaine WPtel: [address] [place] [phone] Other 05/04/2011 Appointment: Clarice Elaine WPtel: [address] [place], [place] [phone] Lab Draw 05/02/2011 Patient Education: Patient Medication Summary Completed 05/02/2011 Patient Education: High Blood Pressure: Essential Hypertension Completed 05/02/2011 Referral: [facility] Referral Appointment Req uested Instructions Comment Date [...] 05/13/2019 . Hypertension - well controlled - michaelle [...] . Diabetes Mellitus - controlled - per traci emerson FSBS reports. I have recommended for the [...] further instructions/medication interventions. HTN-elevated today-monitor at home Fsptkd-[id number]-yswjc labs Allergies-add flonase nasal spray 11/13/2017 restart [...] - chest wall - toradol shot [facility] [id number] november 2018 05/14/2017 . Diabetes Mellitus - [...] Diabetes Mellitus - controlled - per r [facility] FSBS reports. I have recommended for the [...] . Asthma Exacerbation - Asthma is a chrome tanner marguerite problem for this patient, however, the [...] . Hypertension - well controlled - michaelle nimishae with current medications, continue with no added [...] 09/25/2011 Recommend claritin 10mg po daily at leas t 2 weeks.. Recommend probiotic (over the [...]
--- OUTSIDE RECORDS SUMMARY | 2022-11-09 15:40 | XMS REPORT | CCD ---
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 Unknown Has nev er used illegal drugs 05/05/2011 Allergies, Adverse Reactions, Alerts Substance Reaction Codes Entered Date Inactivated Date Status noroxin RxNorm: 687519 05/05/2011 No Inactive Date Acti ve Levaquin RxNorm: 369925 10/11/2011 No Inactive Date Acti ve METRONIDAZOLE Unknown 05/05/2011 No Inactive Date Activ e trovan RxNorm: 273078 05/05/2011 No Inactive Date Acti ve MORPHINE SULFATE RxNorm: 12061 10/11/2011 No Inactive Date Active * NO KNOWN FOOD ALLERGIES Unknown 05/05/2011 No Inactiv e Date Active PREDNISONE RxNorm: 8640 05/05/2011 No Inactive Date Active cephalexin RxNorm: 369288 05/05/2011 No Inactive Date Acti ve azithromycin Unknown 10/11/2011 No Inactive Date Active theophylline RxNorm: 22188 05/05/2011 No Inactive Date Act pilar Problems [...] Start Date Stop Date Status Fill Instructions amiodarone 100 mg tablet RxNorm: 005194 Take 1 Tablet(s) Oral e very other day 10/17/2022 10/11/2023 Active Jardiance 10 mg tablet RxNorm: 4949269 Take 1 Tablet(s) Oral daniela ry day 10/17/2022 11/15/2022 Active Ozempic 0.25 mg or 0.5 mg (2 mg/1.5 mL) subcutaneous p en injector RxNorm: 1343487 Inject 0.5 Milligram(s) Subcutaneous once a week 10/17/2022 02/13/2023 Active Accu-Chek Fastclix Lancet Drum RxNorm: USE 1 ROGE CET TO CHECK GLUCOSE ONCE DAILY 08/23/2022 01/14/2024 Active Jardiance 25 mg tablet RxNorm: 8814444 Take 1 Tablet(s) Oral daniela ry day 06/20/2022 10/16/2022 Inactive pantoprazole 40 mg tablet,delayed release RxNorm: 876267 Take 1 Tablet(s) Oral two times a day 06/05/2022 09/02/2022 Inactive glipizide 5 mg tablet RxNorm: 844696 Take 1 Tablet(s) Oral two times a day 03/03/2022 02/25/2023 Active triamcinolone acetonide 0.5 % topical cream RxNorm: 3964535 Apply 1 Topical three times a day 02/23/2022 03/04/2022 Inactive Bactrim DS 800 mg-160 mg tablet RxNorm: 589830 Take 1 T ablet(s) Oral two times a day 02/20/2022 02/26/2022 Inactive amiodarone 200 mg tablet RxNorm: 735362 Take 1/2 Tablet(s) Oral every day 02/12/2022 09/09/2022 Inactive amiodarone 200 mg tablet RxNorm: 577631 1/2 Tablet(s) Oral every da y 02/09/2022 02/09/2022 Inactive amiodarone 200 mg tablet RxNorm: 500024 Take 1/2 Tablet(s) Oral every day 02/09/2022 02/09/2022 Inactive amiodarone 100 mg tablet RxNorm: 703859 Take 1 Tablet(s) Oral e 02/07/2022 02/08/2022 Inactive this replaces the 20 0mg dose Victoza 2-Abdirizak 0.6 mg/0.1 mL (18 mg/3 mL) subcutaneous pen injector RxNorm: 091913 Inject 1.8 Milligram(s) Subcutaneous every day 02/07/2022 0 10/16/2022 Inactive 1 month supply with needles ondansetron 4 mg disintegrating tablet RxNorm: 076974 1 Tablet(s) Oral as needed 02/06/2022 No Stop Date Active Synthroid 75 mcg tablet RxNorm: 764467 Take 1 as direct ed take one tab m/w/f/sat/sun, no tabs tues/thurs 02/06/2022 06/30/2022 Inactive amiodarone 200 mg tablet RxNorm: 433850 Take 1 Tablet(s) Oral t wo times a day 02/06/2022 02/06/2022 Inactive ondansetron 4 mg disintegrating tablet RxNorm: 921921 T gisselle 1 Tablet(s) Oral four times a day as needed nausea 01/04/2022 02/02/2022 Inactive Accu-Chek Tracy Plus test strips RxNorm: USE 1 S TRIP TO CHECK GLUCOSE ONCE DAILY 12/08/2021 03/21/2025 Active Synthroid 75 mcg tablet RxNorm: 166075 TAKE 1 TABLET BY MOUTH O NCE DAILY 10/10/2021 02/05/2022 Inactive amiodarone 200 mg tablet RxNorm: 915003 Take 1 Tablet(s) Oral t wo times a day 09/13/2021 02/06/2022 Inactive diltiazem ER (XR/XT) 120 mg capsule,extended release 2 4 hr, controlled RxNorm: 740394 Take 1 Capsule(s) Oral every day 09/13/2021 01/03/2022 Inactive Accu-Chek Fastclix Lancet Drum RxNorm: USE 1 ROGE CET TO CHECK GLUCOSE ONCE DAILY 06/17/2021 06/17/2021 Inactive Accu-Chek Fastclix Lancet Drum RxNorm: USE 1 ROGE CET TO CHECK GLUCOSE ONCE DAILY 06/13/2021 06/13/2021 Inactive glipizide 5 mg tablet RxNorm: 078551 1 Tablet(s) Oral two times a day 04/05/2021 04/05/2021 Inactive Victoza 2-Abdirizak 0.6 mg/0.1 mL (18 mg/3 mL) subcutaneous pen injector RxNorm: 554669 Inject 1.2 Milligram(s) Subcutaneous every day 04/05/2021 0 02/06/2022 Inactive 1 month supply with needles Synthroid 75 mcg tablet RxNorm: 322760 TAKE 1 TABLET BY MOUTH O NCE DAILY 01/11/2021 04/10/2021 Inactive Victoza 2-Abdirizak 0.6 mg/0.1 mL (18 mg/3 mL) subcutaneous pen injector RxNorm: 101235 Milliliter(s) Subcutaneous as directed 0 .6mg daily x 1 week then 1.2mg daily 12/08/2020 12/07/2020 Inactive Trulicity is too expensive- wants to cano this victoza Victoza 2-Abdirizak 0.6 mg/0.1 mL (18 mg/3 mL) subcutaneous pen injector RxNorm: 785775 Milliliter(s) Subcutaneous as directed 0 .6mg daily x 1 week then 1.2mg daily 12/08/2020 04/04/2021 Inactive Trulicity is too expensive- wants to cano this victoza- please call her- qty sufficient for 30 days Trulicity 0.75 mg/0.5 mL subcutaneous pen injector RxNorm: 1 020302 INJECT 1 SYRINGE SUBCUTANEOUSLY ONCE A WEEK 10/13/2020 04/04/2021 Inactive Advair HFA 115 mcg-21 mcg/actuation aerosol inhaler RxNorm: 9487188 1 Puff(s) Inhalation two times a day 08/05/2020 No Stop Date Active Accu-Chek Tracy Plus test strips RxNorm: Miscell aneous USE 1 STRIP TO CHECK GLUCOSE ONCE DAILY 07/26/2020 07/26/2020 Inactive Accu-Chek Tracy Plus test strips RxNorm: Miscell aneous USE 1 STRIP TO CHECK GLUCOSE ONCE DAILY 07/26/2020 07/25/2020 Inactive Trulicity 0.75 mg/0.5 mL subcutaneous pen injector RxNorm: 1 818528 INJECT 1 SYRINGE SUBCUTANEOUSLY ONCE A WEEK 06/22/2020 10/12/2020 Inactive Accu-Chek Multiclix Lancet RxNorm: USE 1 LANCET TO CHECK GLUCOSE ONCE DAILY 04/26/2020 04/26/2020 Inactive glipizide 5 mg tablet RxNorm: 235309 1 Tablet(s) Oral two times a day 04/07/2020 04/01/2021 Inactive Synthroid 75 mcg tablet RxNorm: 105825 TAKE 1 TABLET BY MOUTH O NCE DAILY 04/07/2020 01/01/2021 Inactive Trulicity 0.75 mg/0.5 mL subcutaneous pen injector RxNorm: 1 848021 INJECT 1 SYRINGE SUBCUTANEOUSLY ONCE A WEEK 12/31/2019 06/15/2020 Inactive fluticasone 113 mcg-salmeterol 14 mcg/actuation breath activated powdr RxNorm: 1777593 INHALE 1 PUFF TWICE DAILY 12/31/2019 06/27/2020 Inactive Trulicity 0.75 mg/0.5 mL subcutaneous pen injector RxNorm: 1 029557 0.5 Milliliter(s) Subcutaneous once a week 09/09/2019 12/30/2019 Inactive Synthroid 75 mcg tablet RxNorm: 190253 TAKE 1 TABLET BY MOUTH O NCE DAILY 08/04/2019 04/06/2020 Inactive Symbicort 160 mcg-4.5 mcg/actuation HFA aerosol inhaler RxNo rm: 1771916 2 Inhalation two times a day 05/13/2019 08/04/2020 Inactive glipizide 5 mg tablet RxNorm: 273646 1 Tablet(s) Oral two times a day 05/08/2019 04/06/2020 Inactive doxycycline hyclate 100 mg tablet RxNorm: 6337992 1 Tablet(s) PO BI D 01/21/2019 02/03/2019 Inactive fluticasone 113 mcg-salmeterol 14 mcg/actuation breath activated powdr RxNorm: 4697182 1 inhale INH BID 01/21/2019 08/18/2019 Inactive Synthroid 75 mcg tablet RxNorm: 911783 TAKE 1 TABLET BY MOUTH O NCE DAILY 10/28/2018 08/03/2019 Inactive Dulera 100 mcg-5 mcg/actuation HFA aerosol inhaler RxNorm: 1 906055 1 Puff(s) INH BID 09/23/2018 01/20/2019 Inactive Kenalog 40 mg/mL suspension for injection RxNorm: 7358665 Millil iter(s) Inj 09/23/2018 09/23/2018 Inactive albuterol sulfate 2.5 mg/3 mL (0.083 %) solution for n ebulization RxNorm: 604362 USE 1 VIAL IN NEBULIZER 4 TIMES DAILY NEEDED FOR ASTHMA 0 08/26/2018 No Stop Date Active Symbicort 160 mcg-4.5 mcg/actuation HFA aerosol inhaler RxNorm: 5449967 1 INH 06/07/2018 06/06/2018 Inactive Symbicort 160 mcg-4.5 mcg/actuation HFA aerosol inhaler RxNo rm: 9773523 1 INH BID 06/07/2018 07/06/2018 Inactive glipizide 5 mg tablet RxNorm: 407200 1/2 Tablet(s) PO B ID TAKE ONE-HALF TABLET BY MOUTH TWICE DAILY 05/27/2018 05/07/2019 Inactive Synthroid 75 mcg tablet RxNorm: 223851 1 Tablet(s) PO daily 018 05/14/2018 Inactive Synthroid 75 mcg tablet RxNorm: 926185 1 Tablet(s) PO daily 018 10/27/2018 Inactive Synthroid 88 mcg tablet RxNorm: 396926 TAKE 1 TABLET BY MOUTH O NCE DAILY 04/08/2018 05/14/2018 Inactive amiodarone 200 mg tablet RxNorm: 768978 1/2 Tablet(s) PO BID 201705/26/2018 Inactive Bactrim DS 800 mg-160 mg tablet RxNorm: 647599 1 Tablet(s) PO BID 0 01/03/2018 01/02/2018 Inactive take probiotic bid x 7 days Bactrim DS 800 mg-160 mg tablet RxNorm: 210509 1 Tablet(s) PO BID 0 01/03/2018 01/09/2018 Inactive take probiotic bid x 7 days nitrofurantoin 100 mg capsule RxNorm: 096162 1 Capsule(s) PO BID 01/06/2018 Inactive nitrofurantoin 100 mg capsule RxNorm: 952379 1 Capsule(s) PO BID 12/30/2017 Inactive nitrofurantoin 100 mg capsule RxNorm: 251244 1 Capsule(s) PO BID 12/30/2017 Inactive glipizide 5 mg tablet RxNorm: 882926 TAKE ONE-HALF TABLET BY MO [facility] TWICE DAILY 11/23/2017 05/26/2018 Inactive meclizine 25 mg tablet RxNorm: 017678 1 Tablet(s) PO Q6 PRN 018 No Stop Date Active Kenalog 40 mg/mL suspension for injection RxNorm: 3204677 1.5 Mi lliliter(s) Inj 10/30/2017 10/30/2017 Inactive Augmentin 875 mg-125 mg tablet RxNorm: 719940 1 Tablet(s) PO BID 11/05/2017 Inactive Synthroid 88 mcg tablet RxNorm: 997583 TAKE ONE TABLET BY MOUTH ONCE DAILY 10/15/2017 04/07/2018 Inactive metformin 500 mg tablet RxNorm: 212926 TAKE ONE TABLET BY MOUTH WITH BREAKFAST AND ONE TABLET WITH LUNCH AND TWO TABLETS WITH SUPPER 10/15/20172017 Inactive albuterol sulfate 2.5 mg/3 mL (0.083 %) solution for n ebulization RxNorm: 504263 USE ONE VIAL IN NEBULIZER 4 TIMES DAILY NEEDED FOR ASTHMA 08/16/2017 08/25/2018 Inactive Plavix 75 mg tablet RxNorm: 198911 TAKE ONE TABLET BY MOUTH ONC E DAILY 06/25/2017 06/24/2017 Inactive Plavix 75 mg tablet RxNorm: 237454 1 Tablet(s) PO daily TAKE ONE TABLET BY MOUTH ONCE DAILY 06/25/2017 09/19/2017 Inactive acyclovir 800 mg tablet RxNorm: 102534 1 Tablet(s) PO QID 05/15/2017 05/14/2017 Inactive acyclovir 800 mg tablet RxNorm: 233300 1 Tablet(s) PO QID 05/15/2017 05/21/2017 Inactive tramadol 50 mg tablet RxNorm: 187259 1 Tablet(s) PO TID 05/15/2017 Inactive ketorolac 60 mg/2 mL intramuscular solution RxNorm: 132894 2 Mi lliliter(s) IM 05/14/2017 05/14/2017 Inactive Augmentin 875 mg-125 mg tablet RxNorm: 616142 1 Tablet(s) PO BID 05/23/2017 Inactive Synthroid 88 mcg tablet RxNorm: 906296 TAKE ONE TABLET BY MOUTH ONCE DAILY; NEED THYROID LABS DONE 04/16/2017 10/12/2017 Inactive Kenalog 40 mg/mL suspension for injection RxNorm: 6480338 Millil iter(s) Inj 03/06/2017 03/06/2017 Inactive metformin 500 mg tablet RxNorm: 247134 1 Tablet(s) UD 1 tab at breakfast, 1tab at lunch, 2 tab at supper 03/06/2017 09/01/2017 Inactive glipizide 5 mg tablet RxNorm: 489266 TAKE ONE-HALF TABLET BY MO [place] TWICE DAILY 02/23/2017 11/19/2017 Inactive Synthroid 88 mcg tablet RxNorm: 843197 Tablet(s) PO LESLEE E ONE TABLET BY MOUTH DAILY 01/17/2017 04/15/2017 Inactive Needs thyroid la bs done Plavix 75 mg tablet RxNorm: 444714 TAKE ONE TABLET BY MOUTH ONC E DAILY 12/25/2016 06/22/2017 Inactive Kenalog 40 mg/mL suspension for injection RxNorm: 8054710 1.5 Mi lliliter(s) Inj 09/04/2016 09/04/2016 Inactive Janumet XR 100 mg-1,000 mg tablet,extended release RxNorm: 1 444966 1 Tablet(s) PO daily 09/04/2016 03/02/2017 Inactive glipizide 5 mg tablet RxNorm: 526391 TAKE ONE-HALF TABLET BY MO UTH TWICE DAILY 08/24/2016 02/19/2017 Inactive Janumet XR 50 mg-1,000 mg tablet,extended release RxNorm: 12 45184 TAKE ONE TABLET BY MOUTH ONCE DAILY 05/29/2016 09/03/2016 Inactive metoprolol tartrate 25 mg tablet RxNorm: 887935 1/4 Tablet(s) PO BI D 05/01/2016 05/29/2016 Inactive glipizide 5 mg tablet RxNorm: 434368 TAKE ONE-HALF TABLET BY [facility] TWICE DAILY 02/21/2016 08/18/2016 Inactive ProAir HFA 90 mcg/actuation aerosol inhaler RxNorm: 388425 2 Puff(s) INH PRN as needed ASTHMA 02/03/2016 03/03/2016 Inactive albuterol sulfate 2.5 mg/3 mL (0.083 %) solution for n ebulization RxNorm: 634705 1 Milliliter(s) INH QID as needed ASTHMA 02/03/2016 06/01/2016 Inactive Accu-Chek Active Test strips RxNorm: 1 test Miscellaneous homer y 02/03/2016 07/25/2020 Inactive DX250.00 Janumet XR 50 mg-1,000 mg tablet,extended release RxNorm: 12 63712 1 Tablet(s) PO daily 02/03/2016 05/28/2016 Inactive Augmentin 875 mg-125 mg tablet RxNorm: 538646 1 Tablet(s) PO BID 02/12/2016 Inactive sucralfate 1 gram tablet RxNorm: 286853 1 Tablet(s) PO QID - take 30 minutes before meals and before supper 12/21/2015 02/04/2019 Inactive metformin ER 500 mg tablet,extended release 24 hr RxNorm: 86 0975 1 Tablet(s) PO BID 12/21/2015 02/02/2016 Inactive digoxin 250 mcg tablet RxNorm: 658450 1 Tablet(s) PO daily 12/21/19 16 01/20/2018 Inactive Synthroid 88 mcg tablet RxNorm: 044625 Tablet(s) PO LESLEE E ONE TABLET BY MOUTH DAILY 12/20/2015 01/16/2017 Inactive Plavix 75 mg tablet RxNorm: 329056 1 Tablet(s) PO daily 12/20/2015 Inactive Kenalog 40 mg/mL suspension for injection RxNorm: 8523092 1 Mill iliter(s) Inj 11/11/2015 11/11/2015 Inactive Kenalog 40 mg/mL suspension for injection RxNorm: 2784102 1 Mill iliter(s) Inj 10/25/2015 10/25/2015 Inactive metformin 500 mg tablet RxNorm: 670820 2 Tablet(s) PO BID 07/16/2015 12/20/2015 Inactive metformin 500 mg tablet RxNorm: 378649 TAKE TWO TABLETS BY MOUT H TWICE DAILY 07/16/2015 12/20/2015 Inactive albuterol sulfate 2.5 mg/3 mL (0.083 %) solution for n ebulization RxNorm: 899690 1 Milliliter(s) INH QID as needed ASTHMA 07/14/2015 11/10/2015 Inactive glipizide 5 mg tablet RxNorm: 513753 1/2 Tablet(s) PO BID 02/03/2015 01/28/2016 Inactive Symbicort 160 mcg-4.5 mcg/actuation HFA aerosol inhaler RxNorm: 9312639 1 INH 01/06/2015 06/06/2018 Inactive metformin 500 mg tablet RxNorm: 989995 2 Tablet(s) PO BID 12/22/2014 06/19/2015 Inactive Plavix 75 mg tablet RxNorm: 947343 1 Tablet(s) PO daily 12/02/2014 Inactive note directions of one per day Synthroid 88 mcg tablet RxNorm: 587604 1 Tablet(s) PO d aily TAKE ONE TABLET BY MOUTH DAILY 12/02/2014 04/07/2018 Inactive Accu-Chek Active Test strips RxNorm: 1 test Miscellaneous homer y 08/17/2014 02/02/2016 Inactive DX250.00 Kenalog 40 mg/mL suspension for injection RxNorm: 9268582 Millil iter(s) Inj 08/17/2014 08/17/2014 Inactive doxycycline hyclate 100 mg tablet RxNorm: 037095 1 Tablet(s) PO BID 08/17/2014 08/26/2014 Inactive albuterol sulfate 2.5 mg/3 mL (0.083 %) solution for n ebulization RxNorm: 204618 1 Milliliter(s) INH QID as needed ASTHMA 08/17/2014 08/16/2014 Inactive albuterol sulfate 2.5 mg/3 mL (0.083 %) solution for n ebulization RxNorm: 961614 1 Milliliter(s) INH QID as needed ASTHMA 08/17/2014 12/14/2014 Inactive doxycycline hyclate 100 mg tablet RxNorm: 352611 1 Tablet(s) PO BID 08/17/2014 08/16/2014 Inactive Accu-Chek Multiclix Lancet RxNorm: 1 Miscellaneo us daily TEST BLOOD SUGAR EVERY DAY 08/17/2014 09/10/2015 Inactive DX 250.00 metformin 500 mg tablet RxNorm: 530585 TAKE TWO TABLETS BY MOUT H TWICE DAILY 06/23/2014 09/20/2014 Inactive metformin 500 mg tablet RxNorm: 304812 2 Tablet(s) PO BID 06/22/2014 12/18/2014 Inactive Bactrim DS 800 mg-160 mg tablet RxNorm: 066518 1 Tablet(s) PO BID 1 07/11/2013 05/17/2014 Inactive Bactrim DS 800 mg-160 mg tablet RxNorm: 867903 1 Tablet(s) PO BID 1 07/11/2013 05/10/2014 Inactive Kenalog 40 mg/mL suspension for injection RxNorm: 1682922 Millil iter(s) Inj 04/13/2014 04/13/2014 Inactive Accu-Chek Active Test strips RxNorm: 1 TEST MISCELLANEOUS BID 04/06/2014 10/22/2014 Inactive glipizide 5 mg tablet RxNorm: 544297 1/2 Tablet(s) PO BID 03/03/2014 02/02/2015 Inactive Synthroid 88 mcg tablet RxNorm: 019833 1 Tablet(s) PO d aily TAKE ONE TABLET BY MOUTH DAILY 12/11/2013 12/01/2014 Inactive Plavix 75 mg tablet RxNorm: 602799 1 Tablet(s) PO daily 12/11/2013 Inactive note directions of one per day glipizide 5 mg tablet RxNorm: 126029 1/2 Tablet(s) PO BID 11/10/2013 03/02/2014 Inactive Lipitor 10 mg tablet RxNorm: 708259 1 Tablet(s) PO daily 11/10/2013 0 12/21/2014 Inactive Accu-Chek Active Test strips RxNorm: strip misce llaneous TEST BLOOD SUGAR EVERY DAY 11/03/2013 07/25/2020 Inactive Accu-Chek Multiclix Lancet RxNorm: misc miscella neous TEST BLOOD SUGAR EVERY DAY 08/07/2013 08/16/2014 Inactive digoxin 125 mcg tablet RxNorm: 724969 1 Tablet(s) PO daily 01/2810/28/2014 Inactive Accu-Chek Active Test strips RxNorm: strip misce llaneous TEST BLOOD SUGAR EVERY DAY 08/05/2013 07/25/2020 Inactive metformin 500 mg tablet RxNorm: 259311 2 Tablet(s) PO BID 06/12/2013 06/21/2014 Inactive metformin 500 mg tablet RxNorm: 551035 2 Tablet(s) PO BID 05/12/2013 06/11/2013 Inactive metformin 500 mg tablet RxNorm: 426002 Tablet(s) PO LESLEE E ONE & ONE-HALF TABLETS BY MOUTH TWICE DAILY 04/10/2013 05/11/2013 Inactive Synthroid 88 mcg tablet RxNorm: 011282 Tablet(s) PO LESLEE E ONE TABLET BY MOUTH DAILY 01/07/2013 12/19/2015 Inactive Synthroid 88 mcg tablet RxNorm: 458857 1 Tablet(s) PO d aily TAKE ONE TABLET BY MOUTH DAILY 01/06/2013 12/10/2013 Inactive Plavix 75 mg tablet RxNorm: 053030 1 Tablet(s) PO daily 12/09/2012 Inactive note directions of one per day Lipitor 80 mg tablet RxNorm: 552166 Tablet(s) PO TAKE 1 TABLET BY MOUTH EVERY DAY 10/28/2012 11/09/2013 Inactive Synthroid 88 mcg tablet RxNorm: 403908 Tablet(s) PO LESLEE E ONE TABLET BY MOUTH DAILY 10/07/2012 10/06/2012 Inactive Synthroid 88 mcg tablet RxNorm: 425699 1 Tablet(s) PO d aily TAKE ONE TABLET BY MOUTH DAILY 10/07/2012 01/05/2013 Inactive Kenalog 40 mg/mL Susp for Injection RxNorm: 4715509 1 Milliliter (s) IM 10/07/2012 10/07/2012 Inactive digoxin 250 mcg tablet RxNorm: 3329056 1/2 Tablet(s) PO daily 07/1508/04/2013 Inactive Synthroid 88 mcg tablet RxNorm: 184386 Tablet(s) PO LESLEE E ONE TABLET BY MOUTH DAILY 06/28/2012 10/06/2012 Inactive Accu-Chek Multiclix Lancet RxNorm: Misc Miscellaneous 06/05/2012 0 07/25/2020 Inactive TEST BLOOD SUGAR EVERY DAY Accu-Chek Active Test Strips RxNorm: Strip Miscellaneous 2 07/25/2020 Inactive TEST BLOOD SUGAR EVERY DAY Lipitor 80 mg tablet RxNorm: 290828 1/2 Tablet(s) PO daily 03/28/20 12 03/27/2012 Active TAKE 1 TABLET BY MOUTH EVERY DAY metformin 500 mg tablet RxNorm: 359026 1.5 Tablet(s) PO BID 012 04/09/2013 Inactive Lipitor 80 mg tablet RxNorm: 696678 1/2 Tablet(s) PO 03/28/201208/16 Inactive TAKE 1 TABLET BY MOUTH EVERY DAY Lipitor 80 mg tablet RxNorm: 185553 1/2 Tablet(s) PO daily 03/28/20 12 03/27/2012 Active TAKE 1 TABLET BY MOUTH EVERY DAY Influenza Virus Vaccine 0.5 mL RxNorm: IM 03/26/2012 03/26/20 12 Inactive Pneumovax 23 25 mcg/0.5 mL Injection RxNorm: 6847586 Milliliter( s) Inj 03/26/2012 03/26/2012 Inactive metformin 500 mg tablet RxNorm: 316779 1 Tablet(s) PO BID 11/27/2011 03/27/2012 Inactive Plavix 75 mg tablet RxNorm: 539167 1 Tablet(s) PO daily 11/01/2011 Inactive note directions of one per day Lipitor 80 mg tablet RxNorm: 469153 Tablet(s) PO 10/18/2011 03/27/2012 Inactive TAKE 1 TABLET BY MOUTH EVERY DAY Protonix 40 mg Tab RxNorm: 398262 1 Tablet(s) PO BID 10/11/201112/19 Inactive Accu-Chek Active Test Strips RxNorm: 1 test Miscellaneous homer y 10/04/2011 08/16/2014 Inactive Carafate 1 gram Tab RxNorm: 958853 1 Tablet(s) PO QID 10/02/201110/08 Inactive Carafate 1 gram Tab RxNorm: 774563 1 Tablet(s) PO TID 09/29/201109/07 Inactive Carafate 1 gram Tab RxNorm: 456949 1 Tablet(s) PO TID 09/29/201109/07 Inactive Kenalog 40 mg/mL Susp for Injection RxNorm: 2801899 2 Milliliter (s) Inj 07/31/2011 07/31/2011 Inactive Synthroid 88 mcg tablet RxNorm: 159563 1 Tablet(s) PO daily 011 10/11/2011 Inactive Accu-Chek Active Test Strips RxNorm: 1 test Miscellaneous BID 06/05/2011 10/03/2011 Inactive Accu-Chek Multiclix Lancet RxNorm: 1 test Miscellaneous BID 09/24/2011 Inactive Accu-Chek Active Test strips RxNorm: 1 test Miscellaneous BID 06/02/2011 06/04/2011 Inactive Bactrim DS 800 mg-160 mg Tab RxNorm: 401176 1 Tablet(s) PO BID 05/0905/31/2011 Inactive metformin 500 mg Tab RxNorm: 946620 1 Tablet(s) PO TID 05/05/2011 Inactive Influenza Virus Vaccine 0.5 mL RxNorm: IM 05/02/2011 05/02/20 11 Inactive albuterol sulfate HFA 90 mcg/Actuation Aerosol Inhaler RxNor m: 629193 1 Puff(s) INH PRN prn shortness of breath 05/05/2011 Active Xarelto 20 mg tablet RxNorm: 8685004 1 Tablet(s) PO daily 09/20/2017 Active multivitamin chewable tablet RxNorm: 1 Tablet(s) PO daily 12/21/2015 Active Fish Oil 300 mg-1,000 mg capsule RxNorm: 739848 1 Capsule(s) PO occasional 12/21/2015 Active hyoscyamine 0.125 mg sublingual tablet RxNorm: 7738978 1 Tablet( s) SL Q6 11/01/2016 Active simvastatin 20 mg tablet RxNorm: 555341 1/2 Tablet(s) PO daily 12/0712/20/2015 Inactive Zantac 75 75 mg Tab RxNorm: 755317 2 Tablet(s) PO daily 12/21/2015 Inactive Protonix 40 mg Tab RxNorm: 697650 1 Tablet(s) PO daily 10/11/201109/2011 Inactive Fish Oil 1,000 mg capsule RxNorm: 3 Capsule(s) PO daily 12/21/2015 12/20/2015 Inactive amiodarone 400 mg tablet RxNorm: 287355 1 Tablet(s) PO daily 201712/09/2017 Inactive digoxin 125 mcg tablet RxNorm: 3917988 1 Tablet(s) PO daily 014 08/04/2013 Inactive Brilinta 90 mg Tab RxNorm: 1284998 1 Tablet(s) PO daily 10/11/2011 Inactive Fish Oil 1,000 mg Cap RxNorm: 3 Capsule(s) PO daily 12/21/2015 Inactive Flintstones Complete 18 mg iron chewable tablet RxNorm: 2 Tablet(s) PO daily 12/21/2015 12/20/2015 Inactive Niaspan Extended-Release 500 mg 24 hr Tab RxNorm: 5532128 1 Tabl et(s) PO daily 09/25/2011 09/24/2011 Inactive samples tramadol 50 mg tablet RxNorm: 505698 1 Tablet(s) PO TID 05/15/2017 Inactive aspirin 81 mg Cap, Delayed Release RxNorm: 825543 Capsule(s) PO daily 05/02/2012 05/01/2012 Inactive pantoprazole 40 mg tablet,delayed release RxNorm: 768587 1 Tabl et(s) PO daily 05/27/2018 05/26/2018 Inactive metformin 500 mg Tab RxNorm: 455956 1 Tablet(s) PO BID 05/05/2011 Inactive Singulair 10 mg tablet RxNorm: 473535 1 Tablet(s) PO daily 05/27/20 18 05/26/2018 Inactive Prilosec OTC 20 mg tablet,delayed release RxNorm: 366809 1 Tabl et(s) PO daily 11/01/2016 10/31/2016 Inactive Zantac 150 mg Tab RxNorm: 494128 1 Tablet(s) PO BID 10/11/20112011 Inactive Synthroid 88 mcg Tab RxNorm: 114552 1 Tablet(s) PO daily 06/06/2011 1 08/05/2010 Inactive Plavix 75 mg Tab RxNorm: 760301 1 Tablet(s) PO daily 11/01/201110/30 Inactive amiodarone 200 mg tablet RxNorm: 144710 1 Tablet(s) PO BID 01/22/20 18 01/20/2018 Inactive Cartia XT 120 mg capsule,extended release RxNorm: 673785 1 Capsule(s) PO daily and 1 QPM if HR above 100 Dr Aguilar manages 05/27/2018 05/26/2018 Inact pilar aspirin 81 mg Cap, Delayed Release RxNorm: 304673 1 Capsule(s) PO daily 10/04/2011 10/01/2011 Inactive Lipitor 80 mg Tab RxNorm: 268874 1 Tablet(s) PO daily 10/18/201110/07 Inactive Symbicort 160 mcg-4.5 mcg/Actuation HFA Aerosol Inhaler RxNorm: 2395138 1 INH 01/06/2015 01/05/2015 Inactive Medication Administered Medication Codes Instructions Start Date Status Kenalog 40 mg/mL suspension for injection RxNorm: 1610292 Millilite r 09/23/2018 No longer Active Kenalog 40 mg/mL suspension for injection RxNorm: 2822805 1.5Mil liliter 10/30/2017 No longer Active ketorolac 60 mg/2 mL intramuscular solution RxNorm: 682009 2Mil liliter 05/14/2017 No longer Active Kenalog 40 mg/mL suspension for injection RxNorm: 0188932 Millilite r 03/06/2017 No longer Active Kenalog 40 mg/mL suspension for injection RxNorm: 8423994 1.5Mil liliter 09/04/2016 No longer Active Kenalog 40 mg/mL suspension for injection RxNorm: 5827625 1Milli liter 11/11/2015 No longer Active Kenalog 40 mg/mL suspension for injection RxNorm: 8947045 1Milli liter 10/25/2015 No longer Active Kenalog 40 mg/mL suspension for injection RxNorm: 1898592 Millilite r 08/17/2014 No longer Active Kenalog 40 mg/mL suspension for injection RxNorm: 7189627 Millilite r 04/13/2014 No longer Active Kenalog 40 mg/mL Susp for Injection RxNorm: 0128999 1Milliliter No longer Active Influenza Virus Vaccine 0.5 mL RxNorm: 03/26/2012 No longer Active Pneumovax 23 25 mcg/0.5 mL Injection RxNorm: 8691413 Milliliter 0 03/26/2012 No longer Active Kenalog 40 mg/mL Susp for Injection RxNorm: 6572572 2Milliliter No longer Active Influenza Virus Vaccine [...] Result Date S ervice Location Comp Metabolic Pbo759 NA 142 mEq/L 10/09/2022 Unkn own Comp Metabolic Bmv088 K 4.1 mEq/L 10/09/2022 Unkn own Comp Metabolic Dpx903 CL 104 mEq/L 10/09/2022 Unkn own Comp Metabolic Cxk188 CO2 28 mEq/L 10/09/2022 Unkn own Comp Metabolic Ifl808 ANION GAP 14 10/09/2022 Unkn own Comp Metabolic Hcd476 GLUCOSE 154 mg/dL 10/09/2022 Unkn own Comp Metabolic Isg252 Creat 0.7 mg/dL 10/09/2022 Unkn own Comp Metabolic Zwk114 eGFR 82 ml/min/1.73m2 10/10/19 23 Unknown Comp Metabolic Kyc949 BUN 15 mg/dL 10/09/2022 Unkn own Comp Metabolic Kuw905 B/C Ratio 20.8 Ratio 10/09/2022 Unk nown Comp Metabolic Agc492 CALCIUM 8.9 mg/dL 10/09/2022 Unkn own Comp Metabolic Ytk541 ALK PHOS 62 U/L 10/09/2022 Unkn own Comp Metabolic Zdy372 AST(SGOT) 22 U/L 10/09/2022 Unkn own Comp Metabolic Bwt762 ALT(SGPT) 21 U/L 10/09/2022 Unkn own Comp Metabolic Hti708 BILI T 0.9 mg/dL 10/09/2022 Unkn own Comp Metabolic Xzv631 ALBUMIN 4.0 g/dL 10/09/2022 Unkn own Comp Metabolic Wat050 TPRO 6.0 g/dL 10/09/2022 Unkn own Comp Metabolic Uwn762 GLOB 2.0 g/dL 10/09/2022 Unkn own Comp Metabolic Xuv068 A/G Ratio 2.0 Ratio 10/09/2022 Unkn own Comp Metabolic Pmu359 Osmo 287 mOsmo 10/09/2022 Unkn own Free T4 Tqm061 FREE T4 1.46 ng/dL 10/09/2022 Unknown Cbc [...] 10/10/19 23 Unknown Cbc With Differential Ord2 Starke% 12.0 % 10/10/19 23 Unknown Cbc With [...] K/ul 023 Unknown Cbc With Differential Ord2 Star[place] ABS# 0.5 K/ul 10/10/19 23 Unknown Cbc [...] IS) 3.37 uIU/mL 10/09/2022 Unkn own %Hba1C Dup448 % HbA1c 72921-2 9.0 % 10/09/2022 Unknown %Hba1C Cvi140 Gluc Ave 212 mg/dL 10/09/2022 Unknown %Hba1C Ppt667 % HbA1c 61859-8 8.3 % 06/13/2022 Unknown %Hba1C Swy7[address] Gluc [address] 192 mg/dL 06/13/2022 Unknown Cbc [...] 06/13/20 22 Unknown Cbc With Differential Ord2 Starke% 13.3 % 06/13/20 22 Unknown Cbc With [...] K/ul 022 Unknown Cbc With Differential Ord2 Starke ABS# 0.6 K/ul 06/13/20 22 Unknown Cbc [...] C/HDL 4.2 Ratio 06/13/2022 Unknown Comp Metabolic Rtt764 NA 140 mEq/L 06/13/2022 Unkn own Comp Metabolic Gor369 K 4.3 mEq/L 06/13/2022 Unkn own Comp Metabolic Gva049 CL 102 mEq/L 06/13/2022 Unkn own Comp Metabolic Lis229 CO2 30.0 mEq/L 06/13/2022 Unk nown Comp Metabolic Xwh850 ANION GAP 12 06/13/2022 Unkn own Comp Metabolic Kyt318 GLUCOSE 170 mg/dL 06/13/2022 Unkn own Comp Metabolic Qcm705 Creat 0.8 mg/dL 06/13/2022 Unkn own Comp Metabolic Kig743 eGFR 79 ml/min/1.73m2 06/13/20 22 Unknown Comp Metabolic Xac752 BUN 15 mg/dL 06/13/2022 Unkn own Comp Metabolic Hsl734 B/C Ratio 20.0 Ratio 06/13/2022 Unk nown Comp Metabolic Box212 CALCIUM 9.0 mg/dL 06/13/2022 Unkn own Comp Metabolic Cba492 ALK PHOS 68 U/L 06/13/2022 Unkn own Comp Metabolic Qvz963 AST(SGOT) 24 U/L 06/13/2022 Unkn own Comp Metabolic Mhs508 ALT(SGPT) 19 U/L 06/13/2022 Unkn own Comp Metabolic Wyz124 BILI T 0.9 mg/dL 06/13/2022 Unkn own Comp Metabolic Ohj879 ALBUMIN 4.1 g/dL 06/13/2022 Unkn own Comp Metabolic Sey479 TPRO 6.5 g/dL 06/13/2022 Unkn own Comp Metabolic Vel147 GLOB 2.4 g/dL 06/13/2022 Unkn own Comp Metabolic Nhk742 A/G Ratio 1.7 Ratio 06/13/2022 Unkn own Comp Metabolic Vtm937 Osmo 284 mOsmo 06/13/2022 Unkn own Tsh Ord6 TSH (3rd IS) 4.97 uIU/mL 06/13/2022 Unkn own Free T4 Rsn300 FREE T4 1.23 ng/dL 06/13/2022 Unknown Comp Metabolic Ldu182 NA 140 mEq/L 02/01/2022 Unkn own Comp Metabolic Byu535 K 4.3 mEq/L 02/01/2022 Unkn own Comp Metabolic Slj153 CL 103 mEq/L 02/01/2022 Unkn own Comp Metabolic Chj097 CO2 29.0 mEq/L 02/01/2022 Unk nown Comp Metabolic Txa980 ANION GAP 12 02/01/2022 Unkn own Comp Metabolic Gxn692 GLUCOSE 171 mg/dL 02/01/2022 Unkn own Comp Metabolic Mkp881 Creat 0.9 mg/dL 02/01/2022 Unkn own Comp Metabolic Mqg194 eGFR 61 ml/min/1.73m2 02/02/20 22 Unknown Comp Metabolic Jvn169 BUN 15 mg/dL 02/01/2022 Unkn own Comp Metabolic Qyh860 B/C Ratio 16.0 Ratio 02/01/2022 Unk nown Comp Metabolic Hvb872 CALCIUM 9.2 mg/dL 02/01/2022 Unkn own Comp Metabolic Yeq385 ALK PHOS 68 U/L 02/01/2022 Unkn own Comp Metabolic Jau174 AST(SGOT) 22 U/L 02/01/2022 Unkn own Comp Metabolic Fxr174 ALT(SGPT) 25 U/L 02/01/2022 Unkn own Comp Metabolic Wih963 BILI T 1.0 mg/dL 02/01/2022 Unkn own Comp Metabolic Wlf946 ALBUMIN 4.1 g/dL 02/01/2022 Unkn own Comp Metabolic Txt464 TPRO 6.5 g/dL 02/01/2022 Unkn own Comp Metabolic Hxd456 GLOB 2.4 g/dL 02/01/2022 Unkn own Comp Metabolic Yqo312 A/G Ratio 1.7 Ratio 02/01/2022 Unkn own Comp Metabolic Pey852 Osmo 284 mOsmo 02/01/2022 Unkn own Tsh Ord6 TSH (3rd IS) 2.25 uIU/mL 02/01/2022 Unkn own Free T4 Uql737 FREE T4 1.68 ng/dL 02/01/2022 Unknown Cbc [...] 02/02/20 22 Unknown Cbc With Differential Ord2 Starke% 10.9 % 02/02/20 22 Unknown Cbc With [...] K/ul 022 Unknown Cbc With Differential Ord2 [place] ABS# 0.6 K/ul 02/02/20 22 Unknown Cbc [...] Ord30 C/HDL 3.7 Ratio 02/01/2022 Unknown %Hba1C Yhn275 % HbA1c 30696-6 8.2 % 02/01/2022 Unknown %Hba1C Vhm992 Gluc Ave 189 mg/dL 02/01/2022 Unknown MEAN GLUC 0404473 Calc Mean Gluc 140 mg/dL 03/28/2021 Unkn own A1C HPLC 1327919 Hgb A1c 04608-0 6.5 % 03/28/2021 Unknown FREE T4 5522058 T4 Free 1.06 ng/dL 03/25/2021 Unknown TSH 8481917 TSH 0.869 uIU/mL 03/25/2021 Unknow n LIPID GRP CHOLESTEROL 182 mg/dL 03/25/2021 Unknown LIPID GRP Triglyceride 75 mg/dL 03/25/2021 Unknow n LIPID GRP HDL CHOLESTEROL 50 mg/dL 03/25/2021 Unk nown LIPID GRP Chol/HDL Ratio 3.64 ratio 03/25/2021 Unk nown LIPID GRP NON-HDL Chol 132 mg/dL 03/25/2021 Unknow n LIPID GRP LDL Cholesterol 117 mg/dL 03/25/2021 Unk nown GFR CALC 5961666 GFR Non Afr Amr >60 mL/min 03/25/2021 Un known GFR CALC 9529297 GFR Afr Amr >60 mL/min 03/25/2021 Unknow n CBC 0404839 WBC 6.5 10e9/L 03/25/2021 Unknown CBC 9980112 RBC 4.96 10e12/L 03/25/2021 Unknow n CBC 9472131 HEMOGLOBIN 14.6 g/dL 03/25/2021 Unknown CBC 0599865 HEMATOCRIT 44.7 % 03/25/2021 Unknown CBC 0025499 MCV 90.1 fL 03/25/2021 Unknown CBC 7424048 MCH 29.4 pg 03/25/2021 Unknown CBC 8599803 MCHC 32.7 g/dL 03/25/2021 Unknown CBC 6625394 PLATELET COUNT 251 10e9/L 03/25/2021 Unk nown CBC 7624252 Mean Plt Volume 10.2 fL 03/25/2021 Unk nown CBC 2444262 Neut Auto 59.7 % 03/25/2021 Unknown CBC 0124730 Lymph Auto 21.0 % 03/25/2021 Unknown CBC 6613980 Starke Auto 8.8 % 03/25/2021 Unknown CBC 1176500 Eos Auto 9.3 % 03/25/2021 Unknown CBC 3861624 RDW 14.6 % 03/25/2021 Unknown CBC 8046343 Baso Auto 1.2 % 03/25/2021 Unknown CBC 4820410 Neutrophil Abs 3.88 10e9/L 03/25/2021 Un known CBC 4184568 Lymphocyte Abs 1.36 10e9/L 03/25/2021 Un known CBC 0723969 Monocyte Abs 0.57 10e9/L 03/25/2021 Unkn own CBC 9444962 Eosinophil Abs 0.60 10e9/L 03/25/2021 Un known CBC 9217161 Basophil Abs 0.08 10e9/L 03/25/2021 Unkn own CBC 7565967 RDW-SD 47.2 fL 03/25/2021 Unknown CHEM 14 5405191 AST 20 U/L 03/25/2021 Unknown CHEM 14 9827500 ALT 18 U/L 03/25/2021 Unknown CHEM 14 5998574 BUN 17 mg/dL 03/25/2021 Unknown CHEM 14 5823760 ALBUMIN 3.9 g/dL 03/25/2021 Unknown CHEM 14 0263807 CHLORIDE 104 mmol/L 03/25/2021 Unknown CHEM 14 4585526 Bili Total 0.8 mg/dL 03/25/2021 Unknown CHEM 14 6729762 ALK PHOS 69 U/L 03/25/2021 Unknown CHEM 14 0258763 SODIUM 138 mmol/L 03/25/2021 Unknown CHEM 14 8425461 CREATININE 0.76 mg/dL 03/25/2021 Unknown CHEM 14 7089887 CALCIUM 9.5 mg/dL 03/25/2021 Unknown CHEM 14 0110974 POTASSIUM 4.2 mmol/L 03/25/2021 Unknown CHEM 14 7835427 TOTAL PROTEIN 7.0 g/dL 03/25/2021 Unkno wn CHEM 14 6762217 GLUCOSE 133 mg/dL 03/25/2021 Unknown CHEM 14 9688483 Bicarbonate 26 mmol/L 03/25/2021 Unknown CHEM 14 2631094 AGAP 8 mmol/L 03/25/2021 Unknown FREE T4 9704770 T4 Free 1.15 ng/dL 11/19/2020 Unknown A1C HPLC 6529153 Hgb A1c 45574-0 7.0 % 11/19/2020 Unknown LIPID GRP 0558999 CHOLESTEROL 205 mg/dL 11/19/2020 Unknown LIPID GRP 5678535 Triglyceride 100 mg/dL 11/19/2020 Unknow n LIPID GRP HDL CHOLESTEROL 54 mg/dL 11/19/2020 Unk nown LIPID GRP 8771190 Chol/HDL Ratio 3.80 ratio 11/19/2020 Unk nown LIPID GRP NON-HDL Chol 151 mg/dL 11/19/2020 Unknow n LIPID GRP LDL Cholesterol 131 mg/dL 11/19/2020 Unk nown MEAN GLUC 7898716 Calc Mean Gluc 154 mg/dL 11/19/2020 Unkn own GFR CALC 9920387 GFR Non Afr Amr >60 mL/min 11/19/2020 Un known GFR CALC 1647622 GFR Afr Amr >60 mL/min 11/19/2020 Unknow n TSH 3763638 TSH 0.638 uIU/mL 11/19/2020 Unknow n CHEM 14 6219940 AST 22 U/L 11/19/2020 Unknown CHEM 14 1704460 ALT 20 U/L 11/19/2020 Unknown CHEM 14 7005044 BUN 18 mg/dL 11/19/2020 Unknown CHEM 14 8156041 ALBUMIN 4.1 g/dL 11/19/2020 Unknown CHEM 14 2080566 CHLORIDE 104 mmol/L 11/19/2020 Unknown CHEM 14 3514721 Bili Total 0.9 mg/dL 11/19/2020 Unknown CHEM 14 8976934 ALK PHOS 72 U/L 11/19/2020 Unknown CHEM 14 0733069 SODIUM 141 mmol/L 11/19/2020 Unknown CHEM 14 2964433 CREATININE 0.80 mg/dL 11/19/2020 Unknown CHEM 14 9926297 CALCIUM 9.6 mg/dL 11/19/2020 Unknown CHEM 14 3254937 POTASSIUM 4.4 mmol/L 11/19/2020 Unknown CHEM 14 7627426 TOTAL PROTEIN 7.2 g/dL 11/19/2020 Unkno wn CHEM 14 9344091 GLUCOSE 134 mg/dL 11/19/2020 Unknown CHEM 14 8902170 Bicarbonate 31 mmol/L 11/19/2020 Unknown CHEM 14 3939830 AGAP 6 mmol/L 11/19/2020 Unknown LIPID GRP [id number] CHOLESTEROL 199 mg/dL 03/29/2020 Unknown LIPID GRP 3104233 Triglyceride 95 mg/dL 03/29/2020 Unknow n LIPID GRP 2714064 HDL CHOLESTEROL 48 mg/dL 03/29/2020 Unk nown LIPID GRP 4596978 Chol/HDL Ratio 4.15 ratio 03/29/2020 Unk nown LIPID GRP 1723361 NON-HDL Chol 151 mg/dL 03/29/2020 Unknow n LIPID GRP 6531070 LDL Cholesterol 132 mg/dL 03/29/2020 Unk nown CBC 6261141 WBC 5.1 10e9/L 03/29/2020 Unknown CBC 5226139 RBC 5.11 10e12/L 03/29/2020 Unknow n CBC 6651825 HEMOGLOBIN 14.4 g/dL 03/29/2020 Unknown CBC 6648485 HEMATOCRIT 44.9 % 03/29/2020 Unknown CBC 8791895 MCV 87.9 fL 03/29/2020 Unknown CBC 8885995 MCH 28.2 pg 03/29/2020 Unknown CBC 6624074 MCHC 32.1 g/dL 03/29/2020 Unknown CBC 0867976 PLATELET COUNT 239 10e9/L 03/29/2020 Unk nown CBC 2881697 Mean Plt Volume 10.2 fL 03/29/2020 Unk nown CBC 7986281 Neut Auto 51.8 % 03/29/2020 Unknown CBC 9108384 Lymph Auto 24.1 % 03/29/2020 Unknown CBC 3197566 Starke Auto 12.9 % 03/29/2020 Unknown CBC 3753530 Eos Auto 9.0 % 03/29/2020 Unknown CBC 4692973 RDW 15.0 % 03/29/2020 Unknown CBC 8074724 Baso Auto 2.2 % 03/29/2020 Unknown CBC 5790736 Neutrophil Abs 2.64 10e9/L 03/29/2020 Un known CBC 3634464 Lymphocyte Abs 1.23 10e9/L 03/29/2020 Un known CBC 5141947 Monocyte Abs 0.66 10e9/L 03/29/2020 Unkn own CBC 8152724 Eosinophil Abs 0.46 10e9/L 03/29/2020 Un known CBC 1995398 RDW-SD 47.8 fL 03/29/2020 Unknown CBC 4979114 Basophil Abs 0.11 10e9/L 03/29/2020 Unkn own CHEM 14 8928531 AST 21 U/L 03/29/2020 Unknown CHEM 14 9423706 ALT 18 U/L 03/29/2020 Unknown CHEM 14 7581756 BUN 20 mg/dL 03/29/2020 Unknown CHEM 14 9804105 ALBUMIN 3.9 g/dL 03/29/2020 Unknown CHEM 14 7216384 CHLORIDE 103 mmol/L 03/29/2020 Unknown CHEM 14 8209478 Bili Total 0.6 mg/dL 03/29/2020 Unknown CHEM 14 5016985 ALK PHOS 76 U/L 03/29/2020 Unknown CHEM 14 8997137 SODIUM 141 mmol/L 03/29/2020 Unknown CHEM 14 6075620 CREATININE 0.91 mg/dL 03/29/2020 Unknown CHEM 14 1906829 CALCIUM 8.9 mg/dL 03/29/2020 Unknown CHEM 14 2938555 POTASSIUM 4.1 mmol/L 03/29/2020 Unknown CHEM 14 6507617 TOTAL PROTEIN 6.8 g/dL 03/29/2020 Unkno wn CHEM 14 2243029 GLUCOSE 137 mg/dL 03/29/2020 Unknown CHEM 14 5102847 Bicarbonate 28 mmol/L 03/29/2020 Unknown CHEM 14 8614117 AGAP 10 mmol/L 03/29/2020 Unknown A1C HPLC 5348361 Hgb A1c 68247-7 7.1 % 03/29/2020 Unknown GFR CALC 2079161 GFR Non Afr Amr 60 mL/min 03/29/2020 Unk nown GFR CALC 4492693 GFR Afr Amr >60 mL/min 03/29/2020 Unknow n MEAN GLUC 6719494 Calc Mean Gluc 157 mg/dL 03/29/2020 Unkn own GFR CALC 4965032 GFR Non Afr Amr >60 mL/min 11/27/2019 Un known GFR CALC 2318503 GFR Afr Amr >60 mL/min 11/27/2019 Unknow n CHEM 14 3352322 AST 14 U/L 11/27/2019 Unknown CHEM 14 5448253 ALT 12 U/L 11/27/2019 Unknown CHEM 14 2224775 BUN 17 mg/dL 11/27/2019 Unknown CHEM 14 8380081 ALBUMIN 4.0 g/dL 11/27/2019 Unknown CHEM 14 2397570 CHLORIDE 104 mmol/L 11/27/2019 Unknown CHEM 14 1700062 Bili Total 0.7 mg/dL 11/27/2019 Unknown CHEM 14 6422434 ALK PHOS 72 U/L 11/27/2019 Unknown CHEM 14 3698253 SODIUM 141 mmol/L 11/27/2019 Unknown CHEM 14 3808507 CREATININE 0.71 mg/dL 11/27/2019 Unknown CHEM 14 3441658 CALCIUM 9.1 mg/dL 11/27/2019 Unknown CHEM 14 3854820 POTASSIUM 3.9 mmol/L 11/27/2019 Unknown CHEM 14 5914593 TOTAL PROTEIN 6.7 g/dL 11/27/2019 Unkno wn CHEM 14 5538732 GLUCOSE 125 mg/dL 11/27/2019 Unknown CHEM 14 2154947 Bicarbonate 28 mmol/L 11/27/2019 Unknown CHEM 14 9671510 AGAP 9 mmol/L 11/27/2019 Unknown MEAN GLUC 6169870 Calc Mean Gluc 154 mg/dL 11/27/2019 Unkn own A1C HPLC 0551221 Hgb A1c 59141-5 7.0 % 11/27/2019 Unknown FREE T4 7917147 T4 Free 1.16 ng/dL 09/02/2019 Unknown CHEM 14 0499164 AST 13 U/L 09/02/2019 Unknown CHEM 14 2804235 ALT 11 U/L 09/02/2019 Unknown CHEM 14 5554753 BUN 17 mg/dL 09/02/2019 Unknown CHEM 14 0259100 ALBUMIN 4.0 g/dL 09/02/2019 Unknown CHEM 14 7025239 CHLORIDE 103 mmol/L 09/02/2019 Unknown CHEM 14 6191094 Bili Total 0.8 mg/dL 09/02/2019 Unknown CHEM 14 9401295 ALK PHOS 72 U/L 09/02/2019 Unknown CHEM 14 2313177 SODIUM 141 mmol/L 09/02/2019 Unknown CHEM 14 1334083 CREATININE 0.67 mg/dL 09/02/2019 Unknown CHEM 14 4736745 CALCIUM 9.4 mg/dL 09/02/2019 Unknown CHEM 14 6896975 POTASSIUM 3.9 mmol/L 09/02/2019 Unknown CHEM 14 5264672 TOTAL PROTEIN 6.6 g/dL 09/02/2019 Unkno wn CHEM 14 9099618 GLUCOSE 139 mg/dL 09/02/2019 Unknown CHEM 14 9076983 Bicarbonate 29 mmol/L 09/02/2019 Unknown CHEM 14 9448520 AGAP 9 mmol/L 09/02/2019 Unknown TSH 4826344 TSH 2.111 uIU/mL 09/02/2019 Unknow n A1C HPLC 9974800 Hgb A1c 25921-8 8.1 % 09/02/2019 Unknown LIPID GRP 2901787 CHOLESTEROL 194 mg/dL 09/02/2019 Unknown LIPID GRP 3180185 Triglyceride 96 mg/dL 09/02/2019 Unknow n LIPID GRP HDL CHOLESTEROL 54 mg/dL 09/02/2019 Unk nown LIPID GRP Chol/HDL Ratio 3.59 ratio 09/02/2019 Unk nown LIPID GRP 8076625 NON-HDL Chol 140 mg/dL 09/02/2019 Unknow n LIPID GRP LDL Cholesterol 121 mg/dL 09/02/2019 Unk nown CBC 7065657 WBC 6.2 10e9/L 09/02/2019 Unknown CBC 3105978 RBC 4.93 10e12/L 09/02/2019 Unknow n CBC 0281118 HEMOGLOBIN 14.0 g/dL 09/02/2019 Unknown CBC 4391081 HEMATOCRIT 44.5 % 09/02/2019 Unknown CBC 9792490 MCV 90.3 fL 09/02/2019 Unknown CBC 1786847 MCH 28.4 pg 09/02/2019 Unknown CBC 6258811 MCHC 31.5 g/dL 09/02/2019 Unknown CBC 5968539 PLATELET COUNT 264 10e9/L 09/02/2019 Unk nown CBC 3178266 Mean Plt Volume 10.7 fL 09/02/2019 Unk nown CBC 3958939 Neut Auto 55.6 % 09/02/2019 Unknown CBC 7211353 Lymph Auto 25.7 % 09/02/2019 Unknown CBC 2867876 Starke Auto 9.2 % 09/02/2019 Unknown CBC 9394215 RDW 15.0 % 09/02/2019 Unknown CBC 0384305 Eos Auto 8.5 % 09/02/2019 Unknown CBC 3339477 Baso Auto 1.0 % 09/02/2019 Unknown CBC 6177634 Neutrophil Abs 3.45 10e9/L 09/02/2019 Un known CBC 3698948 Lymphocyte Abs 1.59 10e9/L 09/02/2019 Un known CBC 5583463 Monocyte Abs 0.57 10e9/L 09/02/2019 Unkn own CBC 8302327 Eosinophil Abs 0.53 10e9/L 09/02/2019 Un known CBC 5575199 RDW-SD 48.9 fL 09/02/2019 Unknown CBC 9736504 Basophil Abs 0.06 10e9/L 09/02/2019 Unkn own CHEM 14 9515358 AST 15 U/L 04/30/2019 Unknown CHEM 14 0018611 ALT 13 U/L 04/30/2019 Unknown CHEM 14 8684726 BUN 16 mg/dL 04/30/2019 Unknown CHEM 14 7830358 ALBUMIN 4.1 g/dL 04/30/2019 Unknown CHEM 14 8457928 CHLORIDE 102 mmol/L 04/30/2019 Unknown CHEM 14 6285027 Bili Total 0.7 mg/dL 04/30/2019 Unknown CHEM 14 6947511 ALK PHOS 71 U/L 04/30/2019 Unknown CHEM 14 9394159 SODIUM 140 mmol/L 04/30/2019 Unknown CHEM 14 3659337 CREATININE 0.75 mg/dL 04/30/2019 Unknown CHEM 14 2425568 CALCIUM 9.2 mg/dL 04/30/2019 Unknown CHEM 14 7286520 POTASSIUM 3.9 mmol/L 04/30/2019 Unknown CHEM 14 7379301 TOTAL PROTEIN 6.6 g/dL 04/30/2019 Unkno wn CHEM 14 9094413 GLUCOSE 160 mg/dL 04/30/2019 Unknown CHEM 14 1845883 Bicarbonate 31 mmol/L 04/30/2019 Unknown CHEM 14 3972155 AGAP 7 mmol/L 04/30/2019 Unknown A1C HPLC 9133166 Hgb A1c 48348-4 7.9 % 04/30/2019 Unknown TSH 4742768 TSH 1.728 uIU/mL 04/30/2019 Unknow n MEAN GLUC 0193456 Calc Mean Gluc 180 mg/dL 04/30/2019 Unkn own GFR CALC 9574430 GFR Non Afr Amr >60 mL/min 04/30/2019 Un known GFR CALC 2630025 GFR Afr Amr >60 mL/min 04/30/2019 Unknow n FREE T4 3197442 T4 Free 1.00 ng/dL 04/30/2019 Unknown MEAN GLUC 2872615 Calc Mean Gluc 206 mg/dL 01/13/2019 Unkn own GFR CALC 1346004 GFR Non Afr Amr >60 mL/min 01/13/2019 Un known GFR CALC 4056515 GFR Afr Amr >60 mL/min 01/13/2019 Unknow n LIPID GRP CHOLESTEROL 184 mg/dL 01/13/2019 Unknown LIPID GRP Triglyceride 84 mg/dL 01/13/2019 Unknow n LIPID GRP HDL CHOLESTEROL 51 mg/dL 01/13/2019 Unk nown LIPID GRP Chol/HDL Ratio 3.61 ratio 01/13/2019 Unk nown LIPID GRP NON-HDL Chol 133 mg/dL 01/13/2019 Unknow n LIPID GRP LDL Cholesterol 116 mg/dL 01/13/2019 Unk nown FREE T4 5457745 T4 Free 1.15 ng/dL 01/13/2019 Unknown CHEM 14 6907672 AST 13 U/L 01/13/2019 Unknown CHEM 14 7044658 ALT 12 U/L 01/13/2019 Unknown CHEM 14 9248486 BUN 19 mg/dL 01/13/2019 Unknown CHEM 14 8876855 ALBUMIN 4.0 g/dL 01/13/2019 Unknown CHEM 14 6163316 CHLORIDE 104 mmol/L 01/13/2019 Unknown CHEM 14 1444320 Bili Total 0.5 mg/dL 01/13/2019 Unknown CHEM 14 3642980 ALK PHOS 73 U/L 01/13/2019 Unknown CHEM 14 0033576 SODIUM 139 mmol/L 01/13/2019 Unknown CHEM 14 0674083 CREATININE 0.68 mg/dL 01/13/2019 Unknown CHEM 14 5337631 CALCIUM 9.4 mg/dL 01/13/2019 Unknown CHEM 14 6484360 POTASSIUM 4.1 mmol/L 01/13/2019 Unknown CHEM 14 5545651 TOTAL PROTEIN 6.4 g/dL 01/13/2019 Unkno wn CHEM 14 5881624 GLUCOSE 194 mg/dL 01/13/2019 Unknown CHEM 14 8810881 Bicarbonate 31 mmol/L 01/13/2019 Unknown CHEM 14 9126765 AGAP 4 mmol/L 01/13/2019 Unknown CBC 2821329 WBC 6.4 10e9/L 01/13/2019 Unknown CBC 9042264 RBC 4.85 10e12/L 01/13/2019 Unknow n CBC 1177711 HEMOGLOBIN 13.8 g/dL 01/13/2019 Unknown CBC 7451501 HEMATOCRIT 43.5 % 01/13/2019 Unknown CBC 4611619 MCV 89.7 fL 01/13/2019 Unknown CBC 5044277 MCH 28.5 pg 01/13/2019 Unknown CBC 5529279 MCHC 31.7 g/dL 01/13/2019 Unknown CBC 8266198 PLATELET COUNT 283 10e9/L 01/13/2019 Unk nown CBC 7667861 Mean Plt Volume 10.6 fL 01/13/2019 Unk nown CBC 6905374 Neut Auto 56.2 % 01/13/2019 Unknown CBC 4491581 Lymph Auto 21.7 % 01/13/2019 Unknown CBC 9522448 Starke Auto 10.0 % 01/13/2019 Unknown CBC 6542390 Eos Auto 11.3 % 01/13/2019 Unknown CBC 2207156 RDW 14.9 % 01/13/2019 Unknown CBC 4785570 Baso Auto 0.8 % 01/13/2019 Unknown CBC 7749580 Neutrophil Abs 3.60 10e9/L 01/13/2019 Un known CBC 4312774 Lymphocyte Abs 1.39 10e9/L 01/13/2019 Un known CBC 8537803 Monocyte Abs 0.64 10e9/L 01/13/2019 Unkn own CBC 0795067 Eosinophil Abs 0.72 10e9/L 01/13/2019 Un known CBC 5489905 Basophil Abs 0.05 10e9/L 01/13/2019 Unkn own CBC 2959148 RDW-SD 47.9 fL 01/13/2019 Unknown A1C HPLC 6438884 Hgb A1c 01281-6 8.8 % 01/13/2019 Unknown TSH 5272859 TSH 0.966 uIU/mL 01/13/2019 Unknow n A1C HPLC 0044541 Hgb A1c 05428-7 7.9 % 09/11/2018 Unknown CBC 2812901 WBC 5.6 10e9/L 09/11/2018 Unknown CBC 0283634 RBC 5.07 10e12/L 09/11/2018 Unknow n CBC 2160707 HEMOGLOBIN 13.7 g/dL 09/11/2018 Unknown CBC 0997890 HEMATOCRIT 43.9 % 09/11/2018 Unknown CBC 8039977 MCV 86.6 fL 09/11/2018 Unknown CBC 1206722 MCH 27.0 pg 09/11/2018 Unknown CBC 4973326 MCHC 31.2 g/dL 09/11/2018 Unknown CBC 3618608 PLATELET COUNT 282 10e9/L 09/11/2018 Unk nown CBC 0813686 Mean Plt Volume 10.3 fL 09/11/2018 Unk nown CBC 0412044 Neut Auto 46.8 % 09/11/2018 Unknown CBC 6749188 Lymph Auto 28.0 % 09/11/2018 Unknown CBC 5694771 Starke Auto 10.5 % 09/11/2018 Unknown CBC 9335141 Eos Auto 12.9 % 09/11/2018 Unknown CBC 0223892 RDW 15.9 % 09/11/2018 Unknown CBC 2659952 Baso Auto 1.8 % 09/11/2018 Unknown CBC 4745580 Neutrophil Abs 2.62 10e9/L 09/11/2018 Un known CBC 9181853 Lymphocyte Abs 1.57 10e9/L 09/11/2018 Un known CBC 4567893 Monocyte Abs 0.59 10e9/L 09/11/2018 Unkn own CBC 0604639 Eosinophil Abs 0.72 10e9/L 09/11/2018 Un known CBC 5908848 RDW-SD 49.6 fL 09/11/2018 Unknown CBC 9683224 Basophil Abs 0.10 10e9/L 09/11/2018 Unkn own CHEM 14 9720768 AST 17 U/L 09/11/2018 Unknown CHEM 14 2924278 ALT 14 U/L 09/11/2018 Unknown CHEM 14 0297871 BUN 20 mg/dL 09/11/2018 Unknown CHEM 14 0651198 ALBUMIN 3.8 g/dL 09/11/2018 Unknown CHEM 14 2699387 CHLORIDE 104 mmol/L 09/11/2018 Unknown CHEM 14 2137526 Bili Total 0.7 mg/dL 09/11/2018 Unknown CHEM 14 4800390 ALK PHOS 64 U/L 09/11/2018 Unknown CHEM 14 6331270 SODIUM 143 mmol/L 09/11/2018 Unknown CHEM 14 2492616 CREATININE 0.75 mg/dL 09/11/2018 Unknown CHEM 14 [id number] CALCIUM 9.3 mg/dL 09/11/2018 Unknown CHEM 14 [id number] POTASSIUM 4.3 mmol/L 09/11/2018 Unknown CHEM 14 0030154 TOTAL PROTEIN 6.5 g/dL 09/11/2018 Unkno wn CHEM 14 3608740 GLUCOSE 174 mg/dL 09/11/2018 Unknown CHEM 14 2557037 Bicarbonate 31 mmol/L 09/11/2018 Unknown CHEM 14 [id number] AGAP 8 mmol/L 09/11/2018 Unknown FREE T4 [id number] T4 Free 1.16 ng/dL 09/11/2018 Unknown MEAN GLUC 1945185 Calc Mean Gluc 180 mg/dL 09/11/2018 Unkn own TSH 4167015 TSH 1.080 uIU/mL 09/11/2018 Unknow n GFR CALC 1543529 GFR Non Afr Amr >60 mL/min 09/11/2018 Un known GFR CALC 2220837 GFR Afr Amr >60 mL/min 09/11/2018 Unknow n Free T4 Rql358 FREE T4 1.66 ng/dL 05/09/2018 Unknown Tsh [...] 05/09/20 18 Unknown Cbc With Differential Ord2 Starke% 11.6 % 05/09/20 18 Unknown Cbc With [...] K/ul 018 Unknown Cbc With Differential Ord2 [place] ABS# 0.8 K/ul 05/09/20 18 Unknown Cbc [...] Ord15 CALCIUM 9.3 mg/dL 05/09/2018 Unknown %Hba1C Clq347 % HbA1c 14190-6 8.9 % 05/09/2018 Unknown %Hba1C Zcn616 Gluc Ave 209 mg/dL 05/09/2018 Unknown LIPID GRP CHOLESTEROL 184 mg/dL 01/14/2018 Unknown LIPID GRP Triglyceride 65 mg/dL 01/14/2018 Unknow n LIPID GRP HDL CHOLESTEROL 53 mg/dL 01/14/2018 Unk nown LIPID GRP Chol/HDL Ratio 3.47 ratio 01/14/2018 Unk nown LIPID GRP NON-HDL Chol 131 mg/dL 01/14/2018 Unknow n LIPID GRP LDL Cholesterol 118 mg/dL 01/14/2018 Unk nown A1C HPLC 2163376 Hgb A1c 27005-8 6.5 % 01/14/2018 Unknown CBC 7649407 WBC 5.8 10e9/L 01/14/2018 Unknown CBC 1424029 RBC 4.67 10e12/L 01/14/2018 Unknow n CBC 5163612 HEMOGLOBIN 12.4 g/dL 01/14/2018 Unknown CBC 9943687 HEMATOCRIT 40.6 % 01/14/2018 Unknown CBC 6229372 MCV 86.9 fL 01/14/2018 Unknown CBC 2930167 MCH 26.6 pg 01/14/2018 Unknown CBC 0035824 MCHC 30.5 g/dL 01/14/2018 Unknown CBC 9711192 PLATELET COUNT 419 10e9/L 01/14/2018 Unk nown CBC 6252479 Mean Plt Volume 10.1 fL 01/14/2018 Unk nown CBC 1402019 Neut Auto 60.7 % 01/14/2018 Unknown CBC 5975304 Lymph Auto 24.8 % 01/14/2018 Unknown CBC 2527088 [place] Auto 9.7 % 01/14/2018 Unknown CBC 7131823 RDW 25.0 % 01/14/2018 Unknown CBC 5208398 Eos Auto 3.4 % 01/14/2018 Unknown CBC 8822020 Baso Auto 1.4 % 01/14/2018 Unknown CBC 9661085 Neutrophil Abs 3.52 10e9/L 01/14/2018 Un known CBC 4617307 Lymphocyte Abs 1.44 10e9/L 01/14/2018 Un known CBC 4680896 Monocyte Abs 0.56 10e9/L 01/14/2018 Unkn own CBC 0973856 Eosinophil Abs 0.20 10e9/L 01/14/2018 Un known CBC 6132463 RDW-SD 75.4 fL 01/14/2018 Unknown CBC 6161564 Basophil Abs 0.08 10e9/L 01/14/2018 Unkn own MEAN GLUC 5449163 Calc Mean Gluc 140 mg/dL 01/14/2018 Unkn own Culture Urine [id number] URINE CULTURE SEE NOTES 01/03/2018 Unknown Culture Urine [id number] Continued Results 01/04/20 18 Unknown Urine Culture [...] 11/21/19 18 Unknown Cbc With Differential Ord2 [place]% 7.9 % 11/21/19 18 Unknown Cbc With [...] K/ul 018 Unknown Cbc With Differential Ord2 [place] ABS# 0.7 K/ul 11/21/19 18 Unknown Cbc With Differential Ord2 Eos ABS# 0.3 K/ul 11/21/19 18 Unknown Cbc With Differential Ord2 Baso ABS# 0.1 K/ul 11/21/19 18 Unknown Comp Metabolic Ftq329 NA 142 mEq/L 11/20/2017 Unkn own Comp Metabolic Bam573 K 4.1 mEq/L 11/20/2017 Unkn own Comp Metabolic Pzu710 CL 104 mEq/L 11/20/2017 Unkn own Comp Metabolic Fla081 CO2 29.0 mEq/L 11/20/2017 Unk nown Comp Metabolic Fur979 ANION GAP 13 11/20/2017 Unkn own Comp Metabolic Vxa846 GLUCOSE 178 mg/dL 11/20/2017 Unkn own Comp Metabolic Nee303 Creat 0.6 mg/dL 11/20/2017 Unkn own Comp Metabolic Tpu801 eGFR 112 ml/min/1.73m2 018 Unknown Comp Metabolic Vwg515 BUN 19 mg/dL 11/20/2017 Unkn own Comp Metabolic Mxs797 B/C Ratio 33.9 Ratio 11/20/2017 Unk nown Comp Metabolic Zms126 CALCIUM 9.3 mg/dL 11/20/2017 Unkn own Comp Metabolic Cdo590 ALK PHOS 60 U/L 11/20/2017 Unkn own Comp Metabolic Gaz685 AST(SGOT) 13 U/L 11/20/2017 Unkn own Comp Metabolic Hrp238 ALT(SGPT) 14 U/L 11/20/2017 Unkn own Comp Metabolic Anw562 BILI T 0.4 mg/dL 11/20/2017 Unkn own Comp Metabolic Ktb750 ALBUMIN 4.1 g/dL 11/20/2017 Unkn own Comp Metabolic Itn538 TPRO 6.0 g/dL 11/20/2017 Unkn own Comp Metabolic Qwe701 GLOB 1.9 g/dL 11/20/2017 Unkn own Comp Metabolic Hph117 A/G Ratio 2.2 Ratio 11/20/2017 Unkn own Comp Metabolic Bas584 Osmo 290 mOsmo 11/20/2017 Unkn own Cbc [...] 11/14/19 18 Unknown Cbc With Differential Ord2 Starke% 7.8 % 11/14/19 18 Unknown Cbc With [...] K/ul 018 Unknown Cbc With Differential Ord2 [place]ke ABS# 0.8 K/ul 11/14/19 18 Unknown Cbc With Differential Ord2 Eos ABS# 0.3 K/ul 11/14/19 18 Unknown Cbc With Differential Ord2 Baso ABS# 0.1 K/ul 11/14/19 18 Unknown Comp Metabolic Dfr614 NA 142 mEq/L 11/13/2017 Unkn own Comp Metabolic Vzi935 K 4.2 mEq/L 11/13/2017 Unkn own Comp Metabolic Gyt955 CL 104 mEq/L 11/13/2017 Unkn own Comp Metabolic Nin911 CO2 26.0 mEq/L 11/13/2017 Unk nown Comp Metabolic Agj490 ANION GAP 16 11/13/2017 Unkn own Comp Metabolic Aez156 GLUCOSE 115 mg/dL 11/13/2017 Unkn own Comp Metabolic Dyz997 Creat 0.6 mg/dL 11/13/2017 Unkn own Comp Metabolic Xuq735 eGFR 114 ml/min/1.73m2 018 Unknown Comp Metabolic Fgx794 BUN 15 mg/dL 11/13/2017 Unkn own Comp Metabolic Ige810 B/C Ratio 27.3 Ratio 11/13/2017 Unk nown Comp Metabolic Gcy176 CALCIUM 9.2 mg/dL 11/13/2017 Unkn own Comp Metabolic Oam907 ALK PHOS 59 U/L 11/13/2017 Unkn own Comp Metabolic Fld119 AST(SGOT) 12 U/L 11/13/2017 Unkn own Comp Metabolic Obp764 ALT(SGPT) 13 U/L 11/13/2017 Unkn own Comp Metabolic Zul680 BILI T 0.5 mg/dL 11/13/2017 Unkn own Comp Metabolic Qwu462 ALBUMIN 4.0 g/dL 11/13/2017 Unkn own Comp Metabolic Cgv689 TPRO 6.0 g/dL 11/13/2017 Unkn own Comp Metabolic Vyj362 GLOB 2.0 g/dL 11/13/2017 Unkn own Comp Metabolic Fls883 A/G Ratio 2.0 Ratio 11/13/2017 Unkn own Comp Metabolic Iyk977 Osmo 285 mOsmo 11/13/2017 Unkn own Cbc [...] 09/21/19 18 Unknown Cbc With Differential Ord2 Starke% 9.9 % 09/21/19 18 Unknown Cbc With [...] K/ul 018 Unknown Cbc With Differential Ord2 [place] ABS# 0.9 K/ul 09/21/19 18 Unknown Cbc With Differential Ord2 Eos ABS# 0.4 K/ul 09/21/19 18 Unknown Cbc With Differential Ord2 Baso ABS# 0.1 K/ul 09/21/19 18 Unknown Comp Metabolic Ood955 NA 138 mEq/L 09/20/2017 Unkn own Comp Metabolic Uij921 K 4.0 mEq/L 09/20/2017 Unkn own Comp Metabolic Azd276 CL 99 mEq/L 09/20/2017 Unkn own Comp Metabolic Dgc930 CO2 26.0 mEq/L 09/20/2017 Unk nown Comp Metabolic Fmv019 ANION GAP 17 09/20/2017 Unkn own Comp Metabolic Sqc339 GLUCOSE 275 mg/dL 09/20/2017 Unkn own Comp Metabolic Pip722 Creat 0.6 mg/dL 09/20/2017 Unkn own Comp Metabolic Ypj890 eGFR 96 ml/min/1.73m2 09/21/19 18 Unknown Comp Metabolic Kft246 BUN 17 mg/dL 09/20/2017 Unkn own Comp Metabolic Bgi120 B/C Ratio 26.6 Ratio 09/20/2017 Unk nown Comp Metabolic Wsv415 CALCIUM 9.5 mg/dL 09/20/2017 Unkn own Comp Metabolic Erb237 ALK PHOS 57 U/L 09/20/2017 Unkn own Comp Metabolic Hxy052 AST(SGOT) 13 U/L 09/20/2017 Unkn own Comp Metabolic Ubu651 ALT(SGPT) 13 U/L 09/20/2017 Unkn own Comp Metabolic Ifv273 BILI T 0.5 mg/dL 09/20/2017 Unkn own Comp Metabolic Knq359 ALBUMIN 4.1 g/dL 09/20/2017 Unkn own Comp Metabolic Rze908 TPRO 5.9 g/dL 09/20/2017 Unkn own Comp Metabolic Gvl565 GLOB 1.8 g/dL 09/20/2017 Unkn own Comp Metabolic Oxu414 A/G Ratio 2.3 Ratio 09/20/2017 Unkn own Comp Metabolic Hvs786 Osmo 287 mOsmo 09/20/2017 Unkn own %Hba1C Oyb709 % HbA1c 39968-0 7.2 % 09/20/2017 Unknown %Hba1C Wbn006 Gluc Ave 160 mg/dL 09/20/2017 Unknown MEAN GLUC 3816636 Calc Mean Gluc 169 mg/dL 02/28/2017 Unkn own CBC 8178253 WBC 7.6 10e9/L 02/28/2017 Unknown CBC 8003771 RBC 4.91 10e12/L 02/28/2017 Unknow n CBC 3646160 HEMOGLOBIN 13.2 g/dL 02/28/2017 Unknown CBC 7312821 HEMATOCRIT 42.7 % 02/28/2017 Unknown CBC 4583715 MCV 87.0 fL 02/28/2017 Unknown CBC 1365682 MCH 26.9 pg 02/28/2017 Unknown CBC 9122831 MCHC 30.9 g/dL 02/28/2017 Unknown CBC 9323364 PLATELET COUNT 341 10e9/L 02/28/2017 Unk nown CBC 7422384 Mean Plt Volume 10.7 fL 02/28/2017 Unk nown CBC 6027628 Neut Auto 62.1 % 02/28/2017 Unknown CBC 3937114 Lymph Auto 20.2 % 02/28/2017 Unknown CBC 5949613 Starke Auto 9.3 % 02/28/2017 Unknown CBC 7274614 RDW 15.8 % 02/28/2017 Unknown CBC 5752209 Eos Auto 7.1 % 02/28/2017 Unknown CBC 4115289 Baso Auto 1.3 % 02/28/2017 Unknown CBC 7556467 Neutrophil Abs 4.72 10e9/L 02/28/2017 Un known CBC 6414504 Lymphocyte Abs 1.54 10e9/L 02/28/2017 Un known CBC 3516705 Monocyte Abs 0.71 10e9/L 02/28/2017 Unkn own CBC 2917277 Eosinophil Abs 0.54 10e9/L 02/28/2017 Un known CBC 4111844 RDW-SD 49.0 fL 02/28/2017 Unknown CBC 1684007 Basophil Abs 0.10 10e9/L 02/28/2017 Unkn own LIPID GRP 0197420 CHOLESTEROL 189 mg/dL 02/28/2017 Unknown LIPID GRP 4063592 Triglyceride 124 mg/dL 02/28/2017 Unknow n LIPID GRP 5073847 HDL CHOLESTEROL 43 mg/dL 02/28/2017 Unk nown LIPID GRP 6033937 Chol/HDL Ratio 4.40 ratio 02/28/2017 Unk nown LIPID GRP 1720801 NON-HDL Chol 146 mg/dL 02/28/2017 Unknow n LIPID GRP 7889787 LDL Cholesterol 121 mg/dL 02/28/2017 Unk nown A1C HPLC 5532440 Hgb A1c 14773-6 7.5 % 02/28/2017 Unknown GFR CALC 3151745 GFR Non Afr Amr >60 mL/min 02/28/2017 Un known GFR CALC 3646929 GFR Afr Amr >60 mL/min 02/28/2017 Unknow n CHEM 14 1008096 AST 15 U/L 02/28/2017 Unknown CHEM 14 20280111 ALT 16 U/L 02/28/2017 Unknown CHEM 14 1487310 BUN 18 mg/dL 02/28/2017 Unknown CHEM 14 6817739 ALBUMIN 4.0 g/dL 02/28/2017 Unknown CHEM 14 7935339 CHLORIDE 104 mmol/L 02/28/2017 Unknown CHEM 14 2056078 Bili Total 0.6 mg/dL 02/28/2017 Unknown CHEM 14 8656011 ALK PHOS 53 U/L 02/28/2017 Unknown CHEM 14 7534254 SODIUM 143 mmol/L 02/28/2017 Unknown CHEM 14 7722217 CREATININE 0.66 mg/dL 02/28/2017 Unknown CHEM 14 7116215 CALCIUM 9.2 mg/dL 02/28/2017 Unknown CHEM 14 1851427 POTASSIUM 3.9 mmol/L 02/28/2017 Unknown CHEM 14 6536047 TOTAL PROTEIN 6.6 g/dL 02/28/2017 Unkno wn CHEM 14 3114974 GLUCOSE 146 mg/dL 02/28/2017 Unknown CHEM 14 4775498 Bicarbonate 30 mmol/L 02/28/2017 Unknown CHEM 14 4419602 AGAP 9 mmol/L 02/28/2017 Unknown CBC 9931661 WBC 6.8 10e9/L 08/21/2016 Unknown CBC 0222956 RBC 4.87 10e12/L 08/21/2016 Unknow n CBC 6453927 HEMOGLOBIN 12.7 g/dL 08/21/2016 Unknown CBC 0397131 HEMATOCRIT 40.5 % 08/21/2016 Unknown CBC 0288109 MCV 83.2 fL 08/21/2016 Unknown CBC 4314732 MCH 26.1 pg 08/21/2016 Unknown CBC 8079026 MCHC 31.4 g/dL 08/21/2016 Unknown CBC 9306974 PLATELET COUNT 334 10e9/L 08/21/2016 Unk nown CBC 1869859 Mean Plt Volume 10.5 fL 08/21/2016 Unk nown CBC 0799696 Neut Auto 56.4 % 08/21/2016 Unknown CBC 3896304 Lymph Auto 23.5 % 08/21/2016 Unknown CBC 1417194 Starke Auto 9.7 % 08/21/2016 Unknown CBC 7686821 RDW 16.6 % 08/21/2016 Unknown CBC 4532644 Eos Auto 9.5 % 08/21/2016 Unknown CBC 7500392 Baso Auto 0.9 % 08/21/2016 Unknown CBC 6538831 Neutrophil Abs 3.84 10e9/L 08/21/2016 Un known CBC 1006660 Lymphocyte Abs 1.60 10e9/L 08/21/2016 Un known CBC 9301417 Monocyte Abs 0.66 10e9/L 08/21/2016 Unkn own CBC 0382440 Eosinophil Abs 0.65 10e9/L 08/21/2016 Un known CBC 8496803 Basophil Abs 0.06 10e9/L 08/21/2016 Unkn own CBC 3571649 RDW-SD 49.7 fL 08/21/2016 Unknown FREE T4 8433374 T4 Free 1.39 ng/dL 08/21/2016 Unknown LIPID GRP 9490441 CHOLESTEROL 211 mg/dL 08/21/2016 Unknown LIPID GRP 1844821 Triglyceride 105 mg/dL 08/21/2016 Unknow n LIPID GRP HDL CHOLESTEROL 45 mg/dL 08/21/2016 Unk nown LIPID GRP 5185441 Chol/HDL Ratio 4.69 ratio 08/21/2016 Unk nown LIPID GRP 1531540 NON-HDL Chol 166 mg/dL 08/21/2016 Unknow n LIPID GRP 3196159 LDL Cholesterol 145 mg/dL 08/21/2016 Unk nown A1C HPLC 6480219 Hgb A1c 98261-5 7.4 % 08/21/2016 Unknown GFR CALC 2281319 GFR Non Afr Amr >60 mL/min 08/21/2016 Un known GFR CALC 6462927 GFR Afr Amr >60 mL/min 08/21/2016 Unknow n CHEM 14 1820469 AST 16 U/L 08/21/2016 Unknown CHEM 14 9111699 ALT 14 U/L 08/21/2016 Unknown CHEM 14 6383240 BUN 14 mg/dL 08/21/2016 Unknown CHEM 14 7900981 ALBUMIN 4.1 g/dL 08/21/2016 Unknown CHEM 14 0613810 CHLORIDE 105 mmol/L 08/21/2016 Unknown CHEM 14 2168461 Bili Total 0.5 mg/dL 08/21/2016 Unknown CHEM 14 8581512 ALK PHOS 53 U/L 08/21/2016 Unknown CHEM 14 4767588 SODIUM 141 mmol/L 08/21/2016 Unknown CHEM 14 0859073 CREATININE 0.66 mg/dL 08/21/2016 Unknown CHEM 14 9765416 CALCIUM 9.3 mg/dL 08/21/2016 Unknown CHEM 14 6142116 POTASSIUM 4.0 mmol/L 08/21/2016 Unknown CHEM 14 0495349 TOTAL PROTEIN 6.6 g/dL 08/21/2016 Unkno wn CHEM 14 9273742 GLUCOSE 145 mg/dL 08/21/2016 Unknown CHEM 14 20280111 Bicarbonate 29 mmol/L 08/21/2016 Unknown CHEM 14 20280111 AGAP 7 mmol/L 08/21/2016 Unknown TSH 6693073 TSH 1.485 uIU/mL 08/21/2016 Unknow n MEAN GLUC 0377815 Calc Mean Gluc 166 mg/dL 08/21/2016 Unkn [...] 04/24/20 16 Unknown Cbc With Differential Ord2 Starke% 10.9 % 04/24/20 16 Unknown Cbc With [...] K/ul 016 Unknown Cbc With Differential Ord2 [place] ABS# 0.7 K/ul 04/24/20 16 Unknown Cbc With Differential Ord2 Eos ABS# 0.7 K/ul 04/24/20 16 Unknown Cbc With Differential Ord2 Baso ABS# 0.1 K/ul 04/24/20 16 Unknown Comp Metabolic Drp549 NA 138 mEq/L 04/24/2016 Unkn own Comp Metabolic Ssm788 K 4.3 mEq/L 04/24/2016 Unkn own Comp Metabolic Sob008 CL 103 mEq/L 04/24/2016 Unkn own Comp Metabolic Beb457 CO2 28.0 mEq/L 04/24/2016 Unk nown Comp Metabolic Hub830 ANION GAP 11 04/24/2016 Unkn own Comp Metabolic Bte231 GLUCOSE 138 mg/dL 04/24/2016 Unkn own Comp Metabolic Rst367 Creat 0.6 mg/dL 04/24/2016 Unkn own Comp Metabolic Unu735 eGFR 98 ml/min/1.73m2 04/24/20 16 Unknown Comp Metabolic Yzv274 BUN 16 mg/dL 04/24/2016 Unkn own Comp Metabolic Qgc103 B/C Ratio 25.4 Ratio 04/24/2016 Unk nown Comp Metabolic Ocd083 CALCIUM 9.2 mg/dL 04/24/2016 Unkn own Comp Metabolic Hlx456 ALK PHOS 55 U/L 04/24/2016 Unkn own Comp Metabolic Prs346 AST(SGOT) 16 U/L 04/24/2016 Unkn own Comp Metabolic Mhw912 ALT(SGPT) 16 U/L 04/24/2016 Unkn own Comp Metabolic Vvc441 BILI T 0.6 mg/dL 04/24/2016 Unkn own Comp Metabolic Bpv956 ALBUMIN 3.9 g/dL 04/24/2016 Unkn own Comp Metabolic Zne416 TPRO 6.1 g/dL 04/24/2016 Unkn own Comp Metabolic Rmx453 GLOB 2.2 g/dL 04/24/2016 Unkn own Comp Metabolic Qfy492 A/G Ratio 1.7 Ratio 04/24/2016 Unkn own Comp Metabolic Pmk848 Osmo 279 mOsmo 04/24/2016 Unkn own Lipid Ord30 CHOL 208 mg/dL 04/24/2016 Unknown Lipid Ord30 HDL 42.0 mg/dl 04/24/2016 Unknown Lipid Ord30 TRIG 98 mg/dL 04/24/2016 Unknown Lipid Ord30 LDL 146 mg/dL 04/24/2016 Unknown Lipid Ord30 C/HDL 5.0 Ratio 04/24/2016 Unknown %Hba1C Mbk473 % HbA1c 90577-4 7.5 % 04/24/2016 Unknown %Hba1C Kng540 Gluc Ave 169 mg/dL 04/24/2016 Unknown Tsh Ord6 hTSH II 0.82 uIU/mL 04/24/2016 Unknown Free T4 Twz186 FREE T4 1.17 ng/dL 04/24/2016 Unknown Digoxin Ord9 DIGOXIN 0.9 NG/ML 02/03/2016 Unknown Free T4 Shj654 FREE T4 1.17 ng/dL 12/07/2015 Unknown %Hba1C Ytn063 % HbA1c 70929-6 7.5 % 12/07/2015 Unknown %Hba1C Hkk418 Gluc Ave 169 mg/dL 12/07/2015 Unknown Tsh [...] 12/07/19 16 Unknown Cbc With Differential Ord2 Starke% 9.3 % 12/07/19 16 Unknown Cbc With [...] K/ul 016 Unknown Cbc With Differential Ord2 [place] ABS# 0.7 K/ul 12/07/19 16 Unknown Cbc [...] C/HDL 4.8 Ratio 12/07/2015 Unknown Comp Metabolic Oif664 NA 139 mEq/L 12/07/2015 Unkn own Comp Metabolic Ijo044 K 4.3 mEq/L 12/07/2015 Unkn own Comp Metabolic Gkn988 CL 101 mEq/L 12/07/2015 Unkn own Comp Metabolic Ams061 CO2 33.0 mEq/L 12/07/2015 Unk nown Comp Metabolic Wpd863 ANION GAP 9 12/07/2015 Unkn own Comp Metabolic Etn412 GLUCOSE 159 mg/dL 12/07/2015 Unkn own Comp Metabolic Fls161 Creat 0.6 mg/dL 12/07/2015 Unkn own Comp Metabolic Ckn532 eGFR 108 ml/min/1.73m2 016 Unknown Comp Metabolic Bqc929 BUN 13 mg/dL 12/07/2015 Unkn own Comp Metabolic Lhx955 B/C Ratio 22.4 Ratio 12/07/2015 Unk nown Comp Metabolic Bic631 CALCIUM 9.0 mg/dL 12/07/2015 Unkn own Comp Metabolic Rfd538 ALK PHOS 60 U/L 12/07/2015 Unkn own Comp Metabolic Jbc459 AST(SGOT) 16 U/L 12/07/2015 Unkn own Comp Metabolic Zup376 ALT(SGPT) 19 U/L 12/07/2015 Unkn own Comp Metabolic Fdj373 BILI T 0.6 mg/dL 12/07/2015 Unkn own Comp Metabolic Xyt764 ALBUMIN 4.0 g/dL 12/07/2015 Unkn own Comp Metabolic Zkl754 TPRO 6.0 g/dL 12/07/2015 Unkn own Comp Metabolic Iir347 GLOB 2.0 g/dL 12/07/2015 Unkn own Comp Metabolic Yif813 A/G Ratio 1.9 Ratio 12/07/2015 Unkn own Comp Metabolic Bnl883 Osmo 281 mOsmo 12/07/2015 Unkn own Cbc [...] hTSH II 1.10 uIU/mL 06/14/2015 Unknown %Hba1C Roi156 % HbA1c 00499-5 6.8 % 06/14/2015 Unknown %Hba1C Hbz403 Gluc Ave 148 mg/dL 06/14/2015 Unknown Free T4 Nwb371 FREE T4 1.31 ng/dL 06/14/2015 Unknown CHEM 14 6652839 AST 14 U/L 12/07/2014 Unknown CHEM 14 2807598 ALT 12 IU/L 12/07/2014 Unknown CHEM 14 5320349 BUN 12 MG/DL 12/07/2014 Unknown CHEM 14 5405008 ALBUMIN 3.9 GM/DL 12/07/2014 Unknown CHEM 14 7710770 CHLORIDE 103 MMOL/L 12/07/2014 Unknown CHEM 14 1586230 BILI TOT 0.6 MG/DL 12/07/2014 Unknown CHEM 14 9743482 ALK PHOS 49 U/L 12/07/2014 Unknown CHEM 14 1708823 SODIUM 140 MMOL/L 12/07/2014 Unknown CHEM 14 2520215 CREATININE 0.57 MG/DL 12/07/2014 Unknown CHEM 14 6541956 CALCIUM 9.5 MG/DL 12/07/2014 Unknown CHEM 14 4183964 POTASSIUM 4.0 MMOL/L 12/07/2014 Unknown CHEM 14 0517568 PROT TOT 6.5 GM/DL 12/07/2014 Unknown CHEM 14 9309587 GLUCOSE 110 MG/DL 12/07/2014 Unknown CHEM 14 4586612 BICARB 29 MMOL/L 12/07/2014 Unknown CHEM 14 7491329 ANION GAP 8 MEQ/L 12/07/2014 Unknown A1C HPLC 7433734 A1C HPLC 00838-3 6.4 % 12/07/2014 Unknown TSH 2433664 TSH 1.106 uIU/ML 12/07/2014 Unknow n LIPID GRP 0426811 HDL TEST 46 MG/DL 12/07/2014 Unknown LIPID GRP TRIG 119 MG/DL 12/07/2014 Unknown LIPID GRP TEST LDL 108 MG/DL 12/07/2014 Unknown LIPID GRP CHOL 178 MG/DL 12/07/2014 Unknown LIPID GRP RCHOL/HDL 3.87 RATIO 12/07/2014 Unknown LIPID GRP NON-HDL CH 132 MG/DL 12/07/2014 Unknown CBC 7189822 WBC 6.4 10e9/L 12/07/2014 Unknown CBC 5922810 RBC 4.51 10e12/L 12/07/2014 Unknow n CBC 5638082 HGB 12.2 g/dL 12/07/2014 Unknown CBC 1069783 HCT DET 39.0 % 12/07/2014 Unknown CBC 7861592 MCV 86.5 fL 12/07/2014 Unknown CBC 5866214 MCH 27.1 pg 12/07/2014 Unknown CBC 2638694 MCHC 31.3 g/dL 12/07/2014 Unknown CBC 7511340 PLT 325 10e9/L 12/07/2014 Unknown CBC 4735207 MPV 10.4 fL 12/07/2014 Unknown CBC 2769655 TIM % 62.0 % 12/07/2014 Unknown CBC 7182124 LY % 21.4 % 12/07/2014 Unknown CBC 5154955 MON % 9.5 % 12/07/2014 Unknown CBC 3086262 EOS % 6.3 % 12/07/2014 Unknown CBC 4740157 BASO % 0.8 % 12/07/2014 Unknown CBC 4223562 RDW 15.8 % 12/07/2014 Unknown CBC 8147203 ABS TIM 3.97 10e9/L 12/07/2014 Unknown CBC 5489736 ABS LYMPH 1.37 10e9/L 12/07/2014 Unknown CBC 6477004 ABS MONO 0.61 10e9/L 12/07/2014 Unknown CBC 8180823 ABS EOS 0.40 10e9/L 12/07/2014 Unknown CBC 3013734 ABS BASO 0.05 10e9/L 12/07/2014 Unknown CBC 3636620 RDW-SD 48.8 fL 12/07/2014 Unknown FREE T4 1097183 FREE T4 1.37 NG/DL 12/07/2014 Unknown GFR CALC 4275410 GFR AA >60 ML/MIN 12/07/2014 Unknown GFR CALC 6128544 GFR NON-AA >60 ML/MIN 12/07/2014 Unknown CHEM 14 1721647 AST 17 U/L 11/04/2013 Unknown CHEM 14 2551344 ALT 16 IU/L 11/04/2013 Unknown CHEM 14 0837336 BUN 13 MG/DL 11/04/2013 Unknown CHEM 14 3881604 ALBUMIN 4.3 GM/DL 11/04/2013 Unknown CHEM 14 4587117 CHLORIDE 104 MMOL/L 11/04/2013 Unknown CHEM 14 3410037 BILI TOT 0.7 MG/DL 11/04/2013 Unknown CHEM 14 0139699 ALK PHOS 67 U/L 11/04/2013 Unknown CHEM 14 3645716 SODIUM 140 MMOL/L 11/04/2013 Unknown CHEM 14 1712737 CREATININE 0.64 MG/DL 11/04/2013 Unknown CHEM 14 3997107 CALCIUM 9.5 MG/DL 11/04/2013 Unknown CHEM 14 2977549 POTASSIUM 4.0 MMOL/L 11/04/2013 Unknown CHEM 14 3619563 PROT TOT 6.1 GM/DL 11/04/2013 Unknown CHEM 14 0291018 GLUCOSE 157 MG/DL 11/04/2013 Unknown CHEM 14 5382058 BICARB 27 MMOL/L 11/04/2013 Unknown CHEM 14 0816628 ANION GAP 9 MEQ/L 11/04/2013 Unknown FREE T4 5975863 FREE T4 1.44 NG/DL 11/04/2013 Unknown GFR CALC 4731450 GFR AA >60 ML/MIN 11/04/2013 Unknown GFR CALC 7461065 GFR NON-AA >60 ML/MIN 11/04/2013 Unknown TSH 7734148 TSH 0.841 uIU/ML 11/04/2013 Unknow n A1C HPLC 3563713 A1C HPLC 02281-8 7.2 % 11/04/2013 Unknown LIPID GRP HDL TEST 45 MG/DL 11/04/2013 Unknown LIPID GRP TRIG 104 MG/DL 11/04/2013 Unknown LIPID GRP TEST LDL 82 MG/DL 11/04/2013 Unknown LIPID GRP 6781076 CHOL 148 MG/DL 11/04/2013 Unknown LIPID GRP RCHOL/HDL 3.29 RATIO 11/04/2013 Unknown CBC 9884938 WBC 6.2 10e9/L 11/04/2013 Unknown CBC 5517799 RBC 4.38 10e12/L 11/04/2013 Unknow n CBC 8032384 HGB 11.8 g/dL 11/04/2013 Unknown CBC 6596493 HCT DET 37.5 % 11/04/2013 Unknown CBC 7779410 MCV 85.6 fL 11/04/2013 Unknown CBC 9304291 MCH 26.9 pg 11/04/2013 Unknown CBC 7933065 MCHC 31.5 g/dL 11/04/2013 Unknown CBC 4632652 PLT 330 10e9/L 11/04/2013 Unknown CBC 0684364 MPV 10.6 fL 11/04/2013 Unknown CBC 2216531 TIM % 60.8 % 11/04/2013 Unknown CBC 5437705 LY % 22.1 % 11/04/2013 Unknown CBC 2511190 MON % 9.6 % 11/04/2013 Unknown CBC 5853173 EOS % 6.4 % 11/04/2013 Unknown CBC 9762027 BASO % 1.1 % 11/04/2013 Unknown CBC 5677067 RDW 15.6 % 11/04/2013 Unknown CBC 4410297 ABS TIM 3.77 10e9/L 11/04/2013 Unknown CBC 2415536 ABS LYMPH 1.37 10e9/L 11/04/2013 Unknown CBC 6159467 ABS MONO 0.60 10e9/L 11/04/2013 Unknown CBC 9271856 ABS EOS 0.40 10e9/L 11/04/2013 Unknown CBC 3899479 ABS BASO 0.07 10e9/L 11/04/2013 Unknown CBC 3078338 RDW-SD 48.0 fL 11/04/2013 Unknown DIGOXIN 4240262 DIGOXIN 0.5 NG/ML 11/04/2013 Unknown A1C HPLC 7291933 A1C HPLC 18816-6 7.6 % 07/28/2013 Unknown LIPID GRP HDL TEST 38 MG/DL 07/28/2013 Unknown LIPID GRP TRIG 137 MG/DL 07/28/2013 Unknown LIPID GRP TEST LDL 73 MG/DL 07/28/2013 Unknown LIPID GRP CHOL 138 MG/DL 07/28/2013 Unknown LIPID GRP RCHOL/HDL 3.63 RATIO 07/28/2013 Unknown LIVER PNL 1285172 BILI DIR 0.2 MG/DL 07/28/2013 Unknown DIGOXIN 0235808 DIGOXIN 0.4 NG/ML 07/28/2013 Unknown CBC 1563698 WBC 7.2 10e9/L 07/28/2013 Unknown CBC 8939516 RBC 4.65 10e12/L 07/28/2013 Unknow n CBC 0509615 HGB 12.6 g/dL 07/28/2013 Unknown CBC 6742400 HCT DET 39.6 % 07/28/2013 Unknown CBC 9366672 MCV 85.2 fL 07/28/2013 Unknown CBC 7821406 MCH 27.1 pg 07/28/2013 Unknown CBC 0009022 MCHC 31.8 g/dL 07/28/2013 Unknown CBC 2658139 PLT 344 10e9/L 07/28/2013 Unknown CBC 9324060 MPV 10.7 fL 07/28/2013 Unknown CBC 2290728 TIM % 61.4 % 07/28/2013 Unknown CBC 0823133 LY % 22.4 % 07/28/2013 Unknown CBC 5064694 MON % 8.4 % 07/28/2013 Unknown CBC 0853653 EOS % 6.8 % 07/28/2013 Unknown CBC 7318208 BASO % 1.0 % 07/28/2013 Unknown CBC 3123498 RDW 15.5 % 07/28/2013 Unknown CBC 0323510 ABS TMI 4.42 10e9/L 07/28/2013 Unknown CBC 5190370 ABS LYMPH 1.61 10e9/L 07/28/2013 Unknown CBC 5278260 ABS MONO 0.60 10e9/L 07/28/2013 Unknown CBC 7458790 ABS EOS 0.49 10e9/L 07/28/2013 Unknown CBC 0027989 ABS BASO 0.07 10e9/L 07/28/2013 Unknown CBC 5702746 RDW-SD 47.2 fL 07/28/2013 Unknown GFR CALC 6965148 GFR AA >60 ML/MIN 07/28/2013 Unknown GFR CALC 4109974 GFR NON-AA >60 ML/MIN 07/28/2013 Unknown CHEM 14 4561304 AST 20 U/L 07/28/2013 Unknown CHEM 14 4650635 ALT 19 IU/L 07/28/2013 Unknown CHEM 14 5215251 BUN 13 MG/DL 07/28/2013 Unknown CHEM 14 2196898 ALBUMIN 4.1 GM/DL 07/28/2013 Unknown CHEM 14 7071957 CHLORIDE 102 MMOL/L 07/28/2013 Unknown CHEM 14 0452658 BILI TOT 0.7 MG/DL 07/28/2013 Unknown CHEM 14 9463074 ALK PHOS 62 U/L 07/28/2013 Unknown CHEM 14 3020322 SODIUM 139 MMOL/L 07/28/2013 Unknown CHEM 14 0994258 CREATININE 0.66 MG/DL 07/28/2013 Unknown CHEM 14 0760905 CALCIUM 9.3 MG/DL 07/28/2013 Unknown CHEM 14 7213659 POTASSIUM 4.4 MMOL/L 07/28/2013 Unknown CHEM 14 4694780 PROT TOT 6.2 GM/DL 07/28/2013 Unknown CHEM 14 9129889 GLUCOSE 160 MG/DL 07/28/2013 Unknown CHEM 14 6672386 BICARB 29 MMOL/L 07/28/2013 Unknown CHEM 14 4161422 ANION GAP 8 MEQ/L 07/28/2013 Unknown DIGOXIN 3132907 DIGOXIN 0.6 NG/ML 05/12/2013 Unknown GFR CALC 5316873 GFR AA >60 ML/MIN 04/29/2013 Unknown GFR CALC 4526859 GFR NON-AA >60 ML/MIN 04/29/2013 Unknown A1C 2981323 A1C HPLC 09392-1 7.5 % 04/29/2013 Unknown TSH 2241949 TSH 1.161 uIU/ML 04/29/2013 Unknow n CHEM 14 8285695 AST 14 U/L 04/29/2013 Unknown CHEM 14 0662985 ALT 14 IU/L 04/29/2013 Unknown CHEM 14 8703522 BUN 13 MG/DL 04/29/2013 Unknown CHEM 14 1351079 ALBUMIN 4.1 GM/DL 04/29/2013 Unknown CHEM 14 0205710 CHLORIDE 102 MMOL/L 04/29/2013 Unknown CHEM 14 1580566 BILI TOT 0.7 MG/DL 04/29/2013 Unknown CHEM 14 9305224 ALK PHOS 75 U/L 04/29/2013 Unknown CHEM 14 3965772 SODIUM 139 MMOL/L 04/29/2013 Unknown CHEM 14 6110736 CREATININE 0.62 MG/DL 04/29/2013 Unknown CHEM 14 8858010 CALCIUM 9.3 MG/DL 04/29/2013 Unknown CHEM 14 7731690 POTASSIUM 4.0 MMOL/L 04/29/2013 Unknown CHEM 14 0253939 PROT TOT 6.5 GM/DL 04/29/2013 Unknown CHEM 14 8629143 GLUCOSE 152 MG/DL 04/29/2013 Unknown CHEM 14 3720298 BICARB 31 MMOL/L 04/29/2013 Unknown CHEM 14 8538952 ANION GAP 6 MEQ/L 04/29/2013 Unknown CBC 4766904 WBC 7.4 10e9/L 04/29/2013 Unknown CBC 8668262 RBC 4.70 10e12/L 04/29/2013 Unknow n CBC 7559970 HGB 12.8 g/dL 04/29/2013 Unknown CBC 2562845 HCT DET 40.1 % 04/29/2013 Unknown CBC 1349432 MCV 85.3 fL 04/29/2013 Unknown CBC 8100599 MCH 27.2 pg 04/29/2013 Unknown CBC 9196516 MCHC 31.9 g/dL 04/29/2013 Unknown CBC [id number] PLT 312 10e9/L 04/29/2013 Unknown CBC [id number] MPV 10.4 fL 04/29/2013 Unknown CBC [id number] TIM % 64.9 % 04/29/2013 Unknown CBC [id number] LY % 20.0 % 04/29/2013 Unknown CBC [id number] MON % 8.6 % 04/29/2013 Unknown CBC [id number] EOS % 5.3 % 04/29/2013 Unknown CBC [id number] BASO % 1.2 % 04/29/2013 Unknown CBC [id number] RDW 15.4 % 04/29/2013 Unknown CBC [id number] ABS TIM 4.80 10e9/L 04/29/2013 Unknown CBC [id number] ABS LYMPH 1.48 10e9/L 04/29/2013 Unknown CBC [id number] ABS MONO 0.64 10e9/L 04/29/2013 Unknown CBC [id number] ABS EOS 0.39 10e9/L 04/29/2013 Unknown CBC [id number] ABS BASO 0.09 10e9/L 04/29/2013 Unknown CBC [id number] RDW-SD 47.3 fL 04/29/2013 Unknown LIPID GRP HDL TEST 43 MG/DL 04/29/2013 Unknown LIPID GRP TRIG 111 MG/DL 04/29/2013 Unknown LIPID GRP TEST LDL 65 MG/DL 04/29/2013 Unknown LIPID GRP CHOL 130 MG/DL 04/29/2013 Unknown LIPID GRP RCHOL/HDL 3.02 RATIO 04/29/2013 Unknown TSH [id number] TSH 1.406 uIU/ML 12/28/2012 Unknow n A1C 7502375 A1C HPLC 55906-7 7.2 % 12/28/2012 Unknown LIPID GRP HDL TEST 54 MG/DL 12/27/2012 Unknown LIPID GRP TRIG 94 MG/DL 12/27/2012 Unknown LIPID GRP TEST LDL 42 MG/DL 12/27/2012 Unknown LIPID GRP CHOL 115 MG/DL 12/27/2012 Unknown LIPID GRP RCHOL/HDL 2.13 RATIO 12/27/2012 Unknown GFR CALC [id number] GFR AA >60 ML/MIN 12/27/2012 Unknown GFR CALC [id number] GFR NON-AA >60 ML/MIN 12/27/2012 Unknown CHEM 14 [id number] AST 14 U/L 12/27/2012 Unknown CHEM 14 [id number] ALT 13 IU/L 12/27/2012 Unknown CHEM 14 [id number] BUN 13 MG/DL 12/27/2012 Unknown CHEM 14 [id number] ALBUMIN 4.5 GM/DL 12/27/2012 Unknown CHEM 14 [id number] CHLORIDE 105 MMOL/L 12/27/2012 Unknown CHEM 14 [id number] BILI TOT 0.8 MG/DL 12/27/2012 Unknown CHEM 14 1254826 ALK PHOS 69 U/L 12/27/2012 Unknown CHEM 14 [id number] SODIUM 142 MMOL/L 12/27/2012 Unknown CHEM 14 [id number] CREATININE 0.73 MG/DL 12/27/2012 Unknown CHEM 14 [id number] CALCIUM 9.7 MG/DL 12/27/2012 Unknown CHEM 14 [id number] POTASSIUM 4.1 MMOL/L 12/27/2012 Unknown CHEM 14 [id number] PROT TOT 6.8 GM/DL 12/27/2012 Unknown CHEM 14 [id number] GLUCOSE 133 MG/DL 12/27/2012 Unknown CHEM 14 [id number] BICARB 30 MMOL/L 12/27/2012 Unknown CHEM 14 6384519 ANION GAP 7 MEQ/L 12/27/2012 Unknown CBC [id number] WBC 6.8 10e9/L 12/27/2012 Unknown CBC [id number] RBC 4.72 10e12/L 12/27/2012 Unknow n CBC 5473363 HGB 12.5 g/dL 12/27/2012 Unknown CBC [id number] HCT DET 39.6 % 12/27/2012 Unknown CBC [id number] MCV 83.9 fL 12/27/2012 Unknown CBC 9863532 MCH 26.5 pg 12/27/2012 Unknown CBC [id number] MCHC 31.6 g/dL 12/27/2012 Unknown CBC [id number] PLT 336 10e9/L 12/27/2012 Unknown CBC 7862454 MPV 10.4 fL 12/27/2012 Unknown CBC [id number] TIM % 60.7 % 12/27/2012 Unknown CBC [id number] LY % 24.6 % 12/27/2012 Unknown CBC [id number] MON % 8.4 % 12/27/2012 Unknown CBC [id number] EOS % 5.3 % 12/27/2012 Unknown CBC [id number] BASO % 1.0 % 12/27/2012 Unknown CBC [id number] RDW 16.6 % 12/27/2012 Unknown CBC [id number] ABS TIM 4.13 10e9/L 12/27/2012 Unknown CBC [id number] ABS LYMPH 1.67 10e9/L 12/27/2012 Unknown CBC [id number] ABS MONO 0.57 10e9/L 12/27/2012 Unknown CBC [id number] ABS EOS 0.36 10e9/L 12/27/2012 Unknown CBC [id number] ABS BASO 0.07 10e9/L 12/27/2012 Unknown CBC [id number] RDW-SD 50.1 fL 12/27/2012 Unknown GFR CALC [id number] GFR AA >60 ML/MIN 08/27/2012 Unknown GFR CALC 8072329 GFR NON-AA >60 ML/MIN 08/27/2012 Unknown CHEM 14 [id number] AST 15 U/L 08/27/2012 Unknown CHEM 14 [id number] ALT 17 IU/L 08/27/2012 Unknown CHEM 14 [id number] BUN 14 MG/DL 08/27/2012 Unknown CHEM 14 [id number] ALBUMIN 4.2 GM/DL 08/27/2012 Unknown CHEM 14 [id number] CHLORIDE 103 MMOL/L 08/27/2012 Unknown CHEM 14 [id number] BILI TOT 0.6 MG/DL 08/27/2012 Unknown CHEM 14 0337691 ALK PHOS 86 U/L 08/27/2012 Unknown CHEM 14 2322348 SODIUM 141 MMOL/L 08/27/2012 Unknown CHEM 14 6013996 CREATININE 0.64 MG/DL 08/27/2012 Unknown CHEM 14 3292857 CALCIUM 9.5 MG/DL 08/27/2012 Unknown CHEM 14 7201600 POTASSIUM 4.1 MMOL/L 08/27/2012 Unknown CHEM 14 1632767 PROT TOT 6.1 GM/DL 08/27/2012 Unknown CHEM 14 4542128 GLUCOSE 151 MG/DL 08/27/2012 Unknown CHEM 14 5879225 BICARB 30 MMOL/L 08/27/2012 Unknown CHEM 14 2966257 ANION GAP 8 MEQ/L 08/27/2012 Unknown FREE T4 [id number] FREE T4 1.36 NG/DL 08/27/2012 Unknown CBC 6303807 WBC 7.8 10e9/L 08/27/2012 Unknown CBC 0551479 RBC 4.54 10e12/L 08/27/2012 Unknow n CBC 1054798 HGB 12.0 g/dL 08/27/2012 Unknown CBC 5072484 HCT DET 37.9 % 08/27/2012 Unknown CBC 2039387 MCV 83.5 fL 08/27/2012 Unknown CBC 9779549 MCH 26.4 pg 08/27/2012 Unknown CBC 2001722 MCHC 31.7 g/dL 08/27/2012 Unknown CBC 6550636 PLT 370 10e9/L 08/27/2012 Unknown CBC 3027200 MPV 10.7 fL 08/27/2012 Unknown CBC 3942763 TIM % 65.7 % 08/27/2012 Unknown CBC 4198527 LY % 19.5 % 08/27/2012 Unknown CBC 8604779 MON % 9.0 % 08/27/2012 Unknown CBC 0780689 EOS % 5.0 % 08/27/2012 Unknown CBC 5104205 BASO % 0.8 % 08/27/2012 Unknown CBC 6574410 RDW 15.4 % 08/27/2012 Unknown CBC 1224235 ABS TIM 5.12 10e9/L 08/27/2012 Unknown CBC 2870905 ABS LYMPH 1.52 10e9/L 08/27/2012 Unknown CBC 9698558 ABS MONO 0.70 10e9/L 08/27/2012 Unknown CBC 5911423 ABS EOS 0.39 10e9/L 08/27/2012 Unknown CBC 8447739 ABS BASO 0.06 10e9/L 08/27/2012 Unknown CBC 1553532 RDW-SD 46.3 fL 08/27/2012 Unknown A1C HPLC 6220040 A1C HPLC 03468-0 7.3 % 08/27/2012 Unknown LIPID GRP 3350001 HDL TEST 41 MG/DL 08/27/2012 Unknown LIPID GRP 0054061 TRIG 120 MG/DL 08/27/2012 Unknown LIPID GRP 3865051 TEST LDL 67 MG/DL 08/27/2012 Unknown LIPID GRP CHOL 132 MG/DL 08/27/2012 Unknown LIPID GRP 8448649 RCHOL/HDL 3.22 RATIO 08/27/2012 Unknown TSH 5886526 TSH 0.933 uIU/ML 08/27/2012 Unknow n DIGOXIN 9225461 DIGOXIN 1.4 NG/ML 07/15/2012 Unknown CBC 0789186 WBC 6.3 10e9/L 07/15/2012 Unknown CBC 3914689 RBC 4.44 10e12/L 07/15/2012 Unknow n CBC 4185967 HGB 11.8 g/dL 07/15/2012 Unknown CBC 8894695 HCT DET 36.9 % 07/15/2012 Unknown CBC 0249431 MCV 83.1 fL 07/15/2012 Unknown CBC 6409718 MCH 26.6 pg 07/15/2012 Unknown CBC 6986950 MCHC 32.0 g/dL 07/15/2012 Unknown CBC 5696909 PLT 316 10e9/L 07/15/2012 Unknown CBC 6383367 MPV 10.3 fL 07/15/2012 Unknown CBC 5225264 TIM % 64.4 % 07/15/2012 Unknown CBC 8700398 LY % 19.6 % 07/15/2012 Unknown CBC 0972225 MON % 9.1 % 07/15/2012 Unknown CBC [id number] EOS % 6.1 % 07/15/2012 Unknown CBC 0106923 BASO % 0.8 % 07/15/2012 Unknown CBC 3467551 RDW 15.3 % 07/15/2012 Unknown CBC 6116997 ABS TIM 4.06 10e9/L 07/15/2012 Unknown CBC 8605453 ABS LYMPH 1.23 10e9/L 07/15/2012 Unknown CBC 3102471 ABS MONO 0.57 10e9/L 07/15/2012 Unknown CBC 2674069 ABS EOS 0.38 10e9/L 07/15/2012 Unknown CBC 2912310 ABS BASO 0.05 10e9/L 07/15/2012 Unknown CBC 7042552 RDW-SD 46.2 fL 07/15/2012 Unknown DIGOXIN 1954877 DIGOXIN 1.4 NG/ML 07/04/2012 Unknown BMP 9111417 GLUCOSE 137 MG/DL 07/04/2012 Unknown BMP 6220674 CREATININE 0.86 MG/DL 07/04/2012 Unknown BMP 9547792 BUN 14 MG/DL 07/04/2012 Unknown BMP SODIUM 140 MMOL/L 07/04/2012 Unknown BMP POTASSIUM 4.5 MMOL/L 07/04/2012 Unknown BMP CHLORIDE 103 MMOL/L 07/04/2012 Unknown BMP BICARB 28 MMOL/L 07/04/2012 Unknown BMP ANION GAP 9 MEQ/L 07/04/2012 Unknown BMP CALCIUM 9.7 MG/DL 07/04/2012 Unknown CBC 0599683 WBC 6.9 10e9/L 07/04/2012 Unknown CBC 1858579 RBC 4.56 10e12/L 07/04/2012 Unknow n CBC 8365698 HGB 12.2 g/dL 07/04/2012 Unknown CBC 6780422 HCT DET 38.1 % 07/04/2012 Unknown CBC 2763603 MCV 83.6 fL 07/04/2012 Unknown CBC 0494583 MCH 26.8 pg 07/04/2012 Unknown CBC 8889375 MCHC 32.0 g/dL 07/04/2012 Unknown CBC 1779755 PLT 382 10e9/L 07/04/2012 Unknown CBC 0260502 MPV 10.6 fL 07/04/2012 Unknown CBC 3561418 TIM % 58.7 % 07/04/2012 Unknown CBC 9243502 LY % 23.7 % 07/04/2012 Unknown CBC 7330203 MON % 10.2 % 07/04/2012 Unknown CBC 7973210 EOS % 6.4 % 07/04/2012 Unknown CBC 0353143 BASO % 1.0 % 07/04/2012 Unknown CBC 1810761 RDW 15.8 % 07/04/2012 Unknown CBC 3094090 ABS TIM 4.05 10e9/L 07/04/2012 Unknown CBC 4605715 ABS LYMPH 1.64 10e9/L 07/04/2012 Unknown CBC 6008225 ABS MONO 0.70 10e9/L 07/04/2012 Unknown CBC 6084421 ABS EOS 0.44 10e9/L 07/04/2012 Unknown CBC 9270784 ABS BASO 0.07 10e9/L 07/04/2012 Unknown CBC 8478899 RDW-SD 47.5 fL 07/04/2012 Unknown GFR CALC 5130523 GFR AA >60 ML/MIN 07/04/2012 Unknown GFR CALC 9086200 GFR NON-AA >60 ML/MIN 07/04/2012 Unknown A1C HPLC 7025966 A1C HPLC 03145-5 7.1 % 03/27/2012 Unknown GFR CALC 5778504 GFR AA >60 ML/MIN 03/26/2012 Unknown GFR CALC 8970825 GFR NON-AA >60 ML/MIN 03/26/2012 Unknown LIPID GRP HDL TEST 40 MG/DL 03/26/2012 Unknown LIPID GRP TRIG 93 MG/DL 03/26/2012 Unknown LIPID GRP TEST LDL 62 MG/DL 03/26/2012 Unknown LIPID GRP CHOL 121 MG/DL 03/26/2012 Unknown LIPID GRP RCHOL/HDL 3.03 RATIO 03/26/2012 Unknown TSH 3961291 TSH 0.842 uIU/ML 03/26/2012 Unknow n FREE T4 7746371 FREE T4 1.30 NG/DL 03/26/2012 Unknown CBC 6318971 WBC 5.3 10e9/L 03/26/2012 Unknown CBC 0556027 RBC 4.70 10e12/L 03/26/2012 Unknow n CBC 8005344 HGB 12.1 g/dL 03/26/2012 Unknown CBC 4752313 HCT DET 38.1 % 03/26/2012 Unknown CBC 1925417 MCV 81.1 fL 03/26/2012 Unknown CBC 2017996 MCH 25.7 pg 03/26/2012 Unknown CBC 4966051 MCHC 31.8 g/dL 03/26/2012 Unknown CBC 7917700 PLT 315 10e9/L 03/26/2012 Unknown CBC 6981577 MPV 10.9 fL 03/26/2012 Unknown CBC 5489700 TIM % 54.8 % 03/26/2012 Unknown CBC 3225986 LY % 25.8 % 03/26/2012 Unknown CBC 5135280 MON % 11.6 % 03/26/2012 Unknown CBC 6774030 EOS % 7.0 % 03/26/2012 Unknown CBC 6861622 BASO % 0.8 % 03/26/2012 Unknown CBC 4269044 RDW 16.7 % 03/26/2012 Unknown CBC 1094526 ABS TIM 2.90 10e9/L 03/26/2012 Unknown CBC 0476830 ABS LYMPH 1.37 10e9/L 03/26/2012 Unknown CBC 8605299 ABS MONO 0.61 10e9/L 03/26/2012 Unknown CBC 3473754 ABS EOS 0.37 10e9/L 03/26/2012 Unknown CBC 6708727 ABS BASO 0.04 10e9/L 03/26/2012 Unknown CBC 7469047 RDW-SD 48.8 fL 03/26/2012 Unknown CHEM 14 6669330 AST 18 U/L 03/26/2012 Unknown CHEM 14 1874054 ALT 17 IU/L 03/26/2012 Unknown CHEM 14 5055629 BUN 16 MG/DL 03/26/2012 Unknown CHEM 14 2081555 ALBUMIN 4.3 GM/DL 03/26/2012 Unknown CHEM 14 3344656 CHLORIDE 103 MMOL/L 03/26/2012 Unknown CHEM 14 1029281 BILI TOT 0.9 MG/DL 03/26/2012 Unknown CHEM 14 7616411 ALK PHOS 79 U/L 03/26/2012 Unknown CHEM 14 3623847 SODIUM 140 MMOL/L 03/26/2012 Unknown CHEM 14 4217463 CREATININE 0.70 MG/DL 03/26/2012 Unknown CHEM 14 1966576 CALCIUM 9.6 MG/DL 03/26/2012 Unknown CHEM 14 9834486 POTASSIUM 4.1 MMOL/L 03/26/2012 Unknown CHEM 14 4240500 PROT TOT 6.3 GM/DL 03/26/2012 Unknown CHEM 14 2145262 GLUCOSE 142 MG/DL 03/26/2012 Unknown CHEM 14 5294749 BICARB 29 MMOL/L 03/26/2012 Unknown CHEM 14 3460748 ANION GAP 8 MEQ/L 03/26/2012 Unknown LIPID GRP 5220978 HDL TEST 42 MG/DL 01/08/2012 Unknown LIPID GRP 4764327 TRIG 105 MG/DL 01/08/2012 Unknown LIPID GRP 0175464 TEST LDL 51 MG/DL 01/08/2012 Unknown LIPID GRP 9586916 CHOL 114 MG/DL 01/08/2012 Unknown LIPID GRP 4476674 RCHOL/HDL 2.71 RATIO 01/08/2012 Unknown CHEM 14 9924809 AST 24 U/L 01/08/2012 Unknown CHEM 14 6858410 ALT 28 IU/L 01/08/2012 Unknown CHEM 14 4752464 BUN 15 MG/DL 01/08/2012 Unknown CHEM 14 7638229 ALBUMIN 4.3 GM/DL 01/08/2012 Unknown CHEM 14 9355828 CHLORIDE 104 MMOL/L 01/08/2012 Unknown CHEM 14 5897567 BILI TOT 0.6 MG/DL 01/08/2012 Unknown CHEM 14 0553421 ALK PHOS 83 U/L 01/08/2012 Unknown CHEM 14 8276561 SODIUM 141 MMOL/L 01/08/2012 Unknown CHEM 14 5158795 CREATININE 0.64 MG/DL 01/08/2012 Unknown CHEM 14 4406619 CALCIUM 9.4 MG/DL 01/08/2012 Unknown CHEM 14 1147695 POTASSIUM 4.0 MMOL/L 01/08/2012 Unknown CHEM 14 2977426 PROT TOT 6.7 GM/DL 01/08/2012 Unknown CHEM 14 6648414 GLUCOSE 145 MG/DL 01/08/2012 Unknown CHEM 14 5282622 BICARB 28 MMOL/L 01/08/2012 Unknown CHEM 14 4531048 ANION GAP 9 MEQ/L 01/08/2012 Unknown CBC 5878763 WBC 5.8 10e9/L 01/08/2012 Unknown CBC 7364677 RBC 4.36 10e12/L 01/08/2012 Unknow n CBC 0228260 HGB 11.6 g/dL 01/08/2012 Unknown CBC 4125744 HCT DET 37.4 % 01/08/2012 Unknown CBC 7162595 MCV 85.8 fL 01/08/2012 Unknown CBC 4053520 MCH 26.6 pg 01/08/2012 Unknown CBC 2628770 MCHC 31.0 g/dL 01/08/2012 Unknown CBC 7413828 PLT 319 10e9/L 01/08/2012 Unknown CBC 3682684 MPV 10.5 fL 01/08/2012 Unknown CBC 2752983 TIM % 62.2 % 01/08/2012 Unknown CBC 9926966 LY % 20.7 % 01/08/2012 Unknown CBC 0301656 MON % 9.3 % 01/08/2012 Unknown CBC 6026456 EOS % 6.4 % 01/08/2012 Unknown CBC 8813877 BASO % 1.4 % 01/08/2012 Unknown CBC 2542495 RDW 14.9 % 01/08/2012 Unknown CBC 2764412 ABS TIM 3.61 10e9/L 01/08/2012 Unknown CBC 4033998 ABS LYMPH 1.20 10e9/L 01/08/2012 Unknown CBC 2860332 ABS MONO 0.54 10e9/L 01/08/2012 Unknown CBC 6199015 ABS EOS 0.37 10e9/L 01/08/2012 Unknown CBC 8146232 ABS BASO 0.08 10e9/L 01/08/2012 Unknown CBC 0610118 RDW-SD 44.9 fL 01/08/2012 Unknown GFR CALC 2988251 GFR AA >60 ML/MIN 01/08/2012 Unknown GFR CALC 0843311 GFR NON-AA >60 ML/MIN 01/08/2012 Unknown A1C HPLC 6292201 A1C HPLC 37507-7 7.2 % 01/08/2012 Unknown Procedures Procedure Codes Date Iaad ia sarscov & influenza virus types a&b CPT-4: 51540 06/05/2022 ADMIN INFLUENZA VIRUS VAC CPT-4: G0008 04/05/2021 IIV NO PRSV INCREASED AG IM CPT-4: 27661 04/05/2021 ADMIN INFLUENZA VIRUS VAC CPT-4: G0008 04/07/2020 IIV NO PRSV INCREASED AG IM CPT-4: 02611 04/07/2020 IIV4 VACC NO PRSV 0.5 ML IM CPT-4: 01490 05/13/2019 IIV4 VACC NO PRSV 0.5 ML IM CPT-4: 48958 05/13/2019 ADMIN INFLUENZA VIRUS VAC CPT-4: G0008 05/13/2019 THER/PROPH/DIAG INJ SC/IM CPT-4: 69981 09/23/2018 TRIAMCINOLONE ACET INJ NOS 10 mg CPT-4: J3301 019 URINALYSIS NONAUTO W/O SCOPE CPT-4: 18891 12/31/2017 OCCULT BLOOD FECES CPT-4: 06005 11/28/2017 TRIAMCINOLONE ACET INJ NOS 10 mg CPT-4: J3301 018 REMOVAL OF IMPACTED WAX CPT-4: G0268 05/29/2017 THER/PROPH/DIAG INJ SC/IM CPT-4: 69732 05/14/2017 KETOROLAC TROMETHAMINE INJ 15 mg CPT-4: J1885 017 ADMIN INFLUENZA VIRUS VAC CPT-4: G0008 04/30/2017 IIV NO PRSV INCREASED AG IM CPT-4: 97954 04/30/2017 THER/PROPH/DIAG INJ SC/IM CPT-4: 17495 03/06/2017 TRIAMCINOLONE ACET INJ NOS 10 mg CPT-4: J3301 017 THER/PROPH/DIAG INJ SC/IM CPT-4: 28177 09/04/2016 TRIAMCINOLONE ACET INJ NOS 10 mg CPT-4: J3301 017 THER/PROPH/DIAG INJ SC/IM CPT-4: 92166 11/11/2015 TRIAMCINOLONE ACET INJ NOS 10 mg CPT-4: J3301 016 TRIAMCINOLONE ACET INJ NOS 10 mg CPT-4: J3301 016 THER/PROPH/DIAG INJ SC/IM CPT-4: 96421 10/25/2015 THER/PROPH/DIAG INJ SC/IM CPT-4: 81483 08/17/2014 TRIAMCINOLONE ACET INJ NOS 10 mg CPT-4: J3301 015 TRIAMCINOLONE ACET INJ NOS 10 mg CPT-4: J3301 014 THER/PROPH/DIAG INJ SC/IM CPT-4: 43895 04/13/2014 ROUTINE VENIPUNCTURE CPT-4: 18068 11/04/2013 ROUTINE VENIPUNCTURE CPT-4: 53475 05/12/2013 ADMIN INFLUENZA VIRUS VAC CPT-4: G0008 05/12/2013 FLULAVAL VACC, 3 YRS & >, IM CPT-4: Q2036 05/12/2013 TRIAMCINOLONE ACET INJ NOS 10 mg CPT-4: J3301 013 THER/PROPH/DIAG INJ SC/IM CPT-4: 24222 10/07/2012 ROUTINE VENIPUNCTURE CPT-4: 61730 08/27/2012 ROUTINE VENIPUNCTURE CPT-4: 01884 07/15/2012 ROUTINE VENIPUNCTURE CPT-4: 00659 03/26/2012 ADMIN INFLUENZA VIRUS VAC CPT-4: G0008 03/26/2012 FLULAVAL VACC, 3 YRS & >, IM CPT-4: Q2036 03/26/2012 Pneumococcal Polysaccharide Vaccine, 23-Valent, Ad CPT-4: 90 732 03/26/2012 ROUTINE VENIPUNCTURE CPT-4: 43039 01/08/2012 ROUTINE VENIPUNCTURE CPT-4: 34577 11/06/2011 ROUTINE VENIPUNCTURE CPT-4: 98871 10/25/2011 ROUTINE VENIPUNCTURE CPT-4: 81255 10/16/2011 ROUTINE VENIPUNCTURE CPT-4: 86694 09/25/2011 INJ TRIGGER POINT /2 MUSCL CPT-4: 59492 07/31/2011 TRIAMCINOLONE ACET INJ NOS 10 mg CPT-4: J3301 012 PRESCRIP TRANSMIT VIA ERX SY CPT-4: G8553 05/22/2011 ADMIN INFLUENZA VIRUS VAC CPT-4: G0008 05/02/2011 FLULAVAL VACC, 3 YRS & >, IM CPT-4: Q2036 05/02/2011 ROUTINE VENIPUNCTURE CPT-4: 62614 05/02/2011 Vital Signs Date Vital 10/17/2022 Blood Pressure 1: 130/86 Code: 8480-6 BMI: 26.6 Code: 39115-2 Heart Rate 1: 73 bpm Height: 5'1" Code: 8302-2 Respiratory Rate: 18 bpm SpO2: 98% Temperature: 36.2 (C) / 97.1 (F) Weight: 141 lbs Code: 95512-3 06/20/2022 Blood Pressure 1: 130/76 Code: 8480-6 Heart Rate 1: 53 bpm Height: Code: 8302-2 SpO2: 99% Weight: Code: 36780-1 06/05/2022 Heart Rate 1: 85 bpm Height: Code: 8302-2 Respiratory Rate: 17 bpm Weight: Code: 85022-6 02/23/2022 Blood Pressure 1: 138/72 Code: 8480-6 Heart Rate 1: 65 bpm Height: 5'1" Code: 8302-2 SpO2: 98% Temperature: 37.2 (C) / 98.9 (F) Weight: Code: 30168-7 02/20/2022 Blood Pressure 1: 140/76 Code: 8480-6 BMI: 29.5 Code: 88395-4 Heart Rate 1: 62 bpm Height: 5'1" Code: 8302-2 SpO2: 99% Temperature: 3 6.8 (C) / 98.2 (F) Weight: 156 lbs Code: 84727-2 02/06/2022 Blood Pressure 1: 132/76 Code: 8480-6 BMI: 29.5 Code: 67371-3 Heart Rate 1: 52 bpm Height: 5'1" Code: 8302-2 Respiratory Rate: 17 bpm SpO2: 97% Temperature: 36.4 (C) / 97.5 (F) Weight: 156 lbs Code: 04864-3 08/08/2021 Blood Pressure 1: 142/90 Code: 8480-6 BMI: 30.8 Code: 19617-1 Heart Rate 1: 63 bpm Height: 5'1" Code: 8302-2 Respiratory Rate: 17 bpm SpO2: 96% Temperature: 36.3 (C) / 97.4 (F) Weight: 163 lbs Code: 96163-4 04/05/2021 Blood Pressure 1: 160/98 Code: 8480-6 BMI: 30.4 Code: 54235-4 Heart Rate 1: 63 bpm Height: 5'1" Code: 8302-2 Respiratory Rate: 16 bpm SpO2: 96% Temperature: 36.5 (C) / 97.7 (F) Weight: 161 lbs Code: 31541-2 11/30/2020 Blood Pressure 1: 134/70 Code: 8480-6 BMI: 31.4 Code: 92942-1 Heart Rate 1: 81 bpm Height: 5'1" Code: 8302-2 Respiratory Rate: 16 bpm SpO2: 98% Temperature: 36.3 (C) / 97.3 (F) Weight: 166 lbs Code: 99702-2 08/05/2020 Blood Pressure 1: 180/80 Code: 8480-6 BMI: 31.2 Code: 29253-1 Heart Rate 1: 56 bpm Height: 5'1" Code: 8302-2 Respiratory Rate: 18 bpm SpO2: 97% Temperature: 36.1 (C) / 97.0 (F) Weight: 165 lbs Code: 39629-8 04/07/2020 Blood Pressure 1: 142/86 Code: 8480-6 BMI: 31.0 Code: 49521-1 Heart Rate 1: 67 bpm Height: 5'1" Code: 8302-2 SpO2: 99% Temperature: 3 6.7 (C) / 98.1 (F) Weight: 164 lbs Code: 68922-8 12/09/2019 Height: Code: 8302-2 Weight: Code: 294 63-7 09/09/2019 Blood Pressure 1: 142/80 Code: 8480-6 BMI: 31.0 Code: 42243-5 Heart Rate 1: 70 bpm Height: 5'1" Code: 8302-2 Respiratory Rate: 16 bpm SpO2: 98% Weight: 164 lbs Code: 59010-3 05/13/2019 Blood Pressure 1: 160/80 Code: 8480-6 BMI: 30.4 Code: 38594-2 Heart Rate 1: 68 bpm Height: 5'1" Code: 8302-2 SpO2: 97% Weight: 161 lb s Code: 20116-3 02/05/2019 Blood Pressure 1: 140/82 Code: 8480-6 BMI: 30.5 Code: 42096-9 Heart Rate 1: 76 bpm Height: 5'1" Code: 8302-2 SpO2: 97% Weight: 161 lb s 10 oz Code: 15242-7 01/21/2019 Blood Pressure 1: 136/76 Code: 8480-6 BMI: 31.0 Code: 05472-8 Heart Rate 1: 80 bpm Height: 5'1" Code: 8302-2 SpO2: 97% Weight: 164 lb s Code: 07731-0 09/23/2018 Blood Pressure 1: 132/80 Code: 8480-6 BMI: 30.4 Code: 73044-5 Heart Rate 1: 67 bpm Height: 5'1" Code: 8302-2 SpO2: 97% Weight: 161 lb s Code: 09617-1 05/27/2018 Blood Pressure 1: 128/76 Code: 8480-6 BMI: 28.9 Code: 45867-9 Heart Rate 1: 74 bpm Height: 5'1" Code: 8302-2 SpO2: 99% Weight: 153 lb s Code: 78292-0 01/21/2018 Blood Pressure 1: 132/78 Code: 8480-6 BMI: 28.7 Code: 89978-4 Heart Rate 1: 112 bpm Height: 5'1" Code: 8302-2 SpO2: 98% Weight: 152 lb s Code: 14269-2 12/04/2017 Blood Pressure 1: 140/74 Code: 8480-6 BMI: 27.6 Code: 52781-1 Heart Rate 1: 76 bpm Height: 5'1" Code: 8302-2 SpO2: 97% Weight: 146 lb s Code: 84146-4 11/13/2017 Blood Pressure 1: 166/78 Code: 8480-6 BMI: 27.4 Code: 23945-4 Heart Rate 1: 78 bpm Height: 5'1" Code: 8302-2 SpO2: 98% Weight: 145 lb s Code: 29142-6 10/30/2017 Blood Pressure 1: 148/72 Code: 8480-6 BMI: 27.8 Code: 37845-9 Heart Rate 1: 92 bpm Height: 5'1" Code: 8302-2 SpO2: 96% Weight: 147 lb s Code: 00143-4 09/20/2017 Blood Pressure 1: 146/68 Code: 8480-6 BMI: 28.2 Code: 63086-3 Heart Rate 1: 66 bpm Height: 5'1" Code: 8302-2 SpO2: 99% Weight: 149 lb s Code: 61329-3 05/29/2017 Blood Pressure 1: 156/82 Code: 8480-6 BMI: 28.7 Code: 09267-0 Heart Rate 1: 71 bpm Height: 5'1" Code: 8302-2 SpO2: 96% Weight: 152 lb s Code: 30622-9 05/14/2017 Blood Pressure 1: 150/88 Code: 8480-6 BMI: 28.5 Code: 42562-2 Heart Rate 1: 71 bpm Height: 5'1" Code: 8302-2 SpO2: 98% Weight: 151 lb s Code: 86675-1 03/06/2017 Blood Pressure 1: 148/66 Code: 8480-6 BMI: 28.5 Code: 69574-8 Heart Rate 1: 78 bpm Height: 5'1" Code: 8302-2 SpO2: 98% Weight: 151 lb s Code: 78573-4 11/01/2016 Blood Pressure 1: 150/84 Code: 8480-6 BMI: 29.1 Code: 35543-5 Heart Rate 1: 71 bpm Height: 5'1" Code: 8302-2 SpO2: 97% Weight: 154 lb s Code: 13141-1 10/18/2016 Blood Pressure 1: 156/98 Code: 8480-6 Heart Rate 1: 68 bpm Height: 5'1" Code: 8302-2 SpO2: 98% Weight: Code: 06506-6 10/12/2016 Blood Pressure 1: 142/76 Code: 8480-6 BMI: 30.0 Code: 79100-5 Heart Rate 1: 76 bpm Height: 5'1" Code: 8302-2 SpO2: 95% Weight: 159 lb s Code: 15215-1 09/04/2016 Blood Pressure 1: 148/84 Code: 8480-6 Bl ood Pressure 1: 120/70 Code: 8480-6 BMI: 30.0 Code: 25182-6 Heart Rate 1: 72 bpm Height: 5'1" Code: 8302-2 SpO2: 94% Weight: 159 lbs Code: 78370-3 05/30/2016 Blood Pressure 1: 152/84 Code: 8480-6 BMI: 29.9 Code: 98478-2 Heart Rate 1: 76 bpm Height: 5'1" Code: 8302-2 SpO2: 97% Weight: 158 lb s 8 oz Code: 19473-8 05/01/2016 Blood Pressure 1: 146/60 Code: 8480-6 BMI: 29.9 Code: 33775-6 Heart Rate 1: 72 bpm Height: 5'1" Code: 8302-2 SpO2: 97% Weight: 158 lb s Code: 43684-8 02/29/2016 Blood Pressure 1: 152/82 Code: 8480-6 BMI: 30.4 Code: 26511-1 Heart Rate 1: 71 bpm Height: 5'1" Code: 8302-2 SpO2: 96% Weight: 161 lb s Code: 67743-7 02/03/2016 Blood Pressure 1: 148/88 Code: 8480-6 BMI: 30.6 Code: 57397-2 Heart Rate 1: 72 bpm Height: 5'1" Code: 8302-2 SpO2: 98% Weight: 162 lb s Code: 07240-2 12/21/2015 Blood Pressure 1: 180/78 Code: 8480-6 BMI: 30.9 Code: 38443-2 Heart Rate 1: 64 bpm Height: 5'1" Code: 8302-2 SpO2: 97% Weight: 163 lb s 8 oz Code: 89332-3 10/25/2015 Blood Pressure 1: 150/78 Code: 8480-6 BMI: 31.0 Code: 73266-5 Heart Rate 1: 73 bpm Height: 5'1" Code: 8302-2 SpO2: 98% Weight: 164 lb s Code: 88052-6 10/19/2015 Blood Pressure 1: 122/72 Code: 8480-6 BMI: 31.6 Code: 31060-1 Heart Rate 1: 88 bpm Height: 5'1" Code: 8302-2 SpO2: 98% Weight: 167 lb s Code: 95833-3 06/22/2015 Blood Pressure 1: 150/82 Code: 8480-6 BMI: 31.4 Code: 09805-5 Heart Rate 1: 86 bpm Height: 5'1" Code: 8302-2 SpO2: 96% Weight: 166 lb s Code: 43894-9 12/22/2014 Blood Pressure 1: 160/92 Code: 8480-6 BMI: 31.2 Code: 39658-1 Heart Rate 1: 85 bpm Height: 5'1" Code: 8302-2 SpO2: 97% Weight: 165 lb s Code: 51054-1 08/17/2014 Blood Pressure 1: 138/80 Code: 8480-6 BMI: 31.6 Code: 18117-2 Heart Rate 1: 77 bpm Height: 5'1" Code: 8302-2 SpO2: 97% Weight: 167 lb s Code: 82911-9 04/13/2014 Blood Pressure 1: 144/88 Code: 8480-6 BMI: 31.6 Code: 96306-7 Heart Rate 1: 90 bpm Height: 5'1" Code: 8302-2 Weight: 167 lbs Code: 70580 -7 12/11/2013 Blood Pressure 1: 168/90 Code: 8480-6 BMI: 32.3 Code: 16846-7 Heart Rate 1: 72 bpm Height: 5'1" Code: 8302-2 Weight: 171 lbs Code: 59882 -7 11/10/2013 Blood Pressure 1: 150/80 Code: 8480-6 BMI: 32.3 Code: 72053-6 Heart Rate 1: 76 bpm Height: 5'1" Code: 8302-2 Weight: 171 lbs Code: 36244 -7 08/11/2013 Blood Pressure 1: 152/80 Code: 8480-6 BMI: 32.5 Code: 39531-8 Heart Rate 1: 92 bpm Height: 5'1" Code: 8302-2 Temperature: 36.7 (C) / 98.0 (F) Weight: 172 lbs Code: 01448-9 05/12/2013 Blood Pressure 1: 142/102 Code: 8480-6 B lood Pressure 2: 144/98 Code: 8480-6 BMI: 34.2 Code: 17204-1 Heart Rate 1: 80 bpm Height: 5'1" Code: 8302-2 Weight: 181 lbs Code: 80821-2 01/06/2013 Blood Pressure 1: 138/76 Code: 8480-6 BMI: 34.6 Code: 01277-2 Heart Rate 1: 64 bpm Height: 5'1" Code: 8302-2 Weight: 183 lbs Code: 53882 -7 10/07/2012 Blood Pressure 1: 146/76 Code: 8480-6 BMI: 35.6 Code: 76472-1 Heart Rate 1: 76 bpm Height: 5'1" Code: 8302-2 Respiratory Rate: 20 bpm Weight: 1 88 lbs 8 oz Code: 83674-0 09/11/2012 Blood Pressure 1: 158/92 Code: 8480-6 BMI: 35.7 Code: 52254-3 Heart Rate 1: 76 bpm Height: 5'1" Code: 8302-2 Weight: 189 lbs Code: 28434 -7 07/15/2012 Blood Pressure 1: 158/100 Code: 8480-6 BMI: 36.3 Code: 94024-0 Heart Rate 1: 72 bpm Height: 5'1" Code: 8302-2 Respiratory Rate: 20 bpm Weight: 1 92 lbs Code: 91362-3 05/02/2012 Blood Pressure 1: 156/80 Code: 8480-6 BMI: 35.9 Code: 47262-0 Heart Rate 1: 72 bpm Height: 5'1" Code: 8302-2 Weight: 190 lbs Code: 52510 -7 03/28/2012 Blood Pressure 1: 133/88 Code: 8480-6 Heart Rate 1: 78 bpm Weight: 189 lbs Code: 44710-6 11/27/2011 Blood Pressure 1: 178/80 Code: 8480-6 BMI: 36.7 Code: 70692-9 Heart Rate 1: 72 bpm Height: 5'1" Code: 8302-2 Respiratory Rate: 20 bpm Weight: 1 94 lbs Code: 93162-8 10/25/2011 Blood Pressure 1: 122/62 Code: 8480-6 BMI: 37.0 Code: 41527-3 Heart Rate 1: 80 bpm Height: 5'1" Code: 8302-2 Respiratory Rate: 16 bpm Weight: 1 96 lbs Code: 68766-6 10/16/2011 Blood Pressure 1: 136/70 Code: 8480-6 He art Rate 1: 76 bpm 10/11/2011 Blood Pressure 1: 132/60 Code: 8480-6 Heart Rate 1: 84 bpm Respiratory Rate: 20 bpm Weight: 194 lbs Code: 70808-9 10/04/2011 Blood Pressure 1: 152/90 Code: 8480-6 Heart Rate 1: 88 bpm Respiratory Rate: 20 bpm Weight: 193 lbs Code: 18476-2 09/25/2011 Blood Pressure 1: 146/78 Code: 8480-6 Heart Rate 1: 80 bpm Weight: 194 lbs Code: 54829-1 07/31/2011 Blood Pressure 1: 128/78 Code: 8480-6 Bl ood Pressure 2: / Code: 8480-6 BMI: 37.1 Code: 40521-0 Heart Rate 1: 72 bpm Height: 5'1" Code: 8302-2 Respiratory Rate: 16 bpm SpO2: % Temperature: .0 (C) / 32.0 (F) Weig ht: 196 lbs 8 oz Code: 15088-7 05/22/2011 Blood Pressure 1: 147/71 Code: 8480-6 BMI: 18.7 Code: 45211-5 Heart Rate 1: 77 bpm Height: 7'1" Code: 8302-2 Weight: 192 lbs Code: 92542 -7 05/05/2011 Blood Pressure 1: 178/88 Code: 8480-6 BMI: 37.4 Code: 64127-7 Heart Rate 1: 80 bpm Height: 5' Code: 8302-2 Respiratory Rate: 16 bpm Weight: 193 lbs Code: 04410-2 Functional Status No Functional Status data Reason [...] Encounter Performer Location Location Address Codes Date ([id number]) [id number] EST. PATIENT, LEVEL IV Diagnosis: Type 2 diabetes mellitus with hyperglycemia[ICD10: E11.65] Diagnosis: Atrophy of thyroid (acquired)[ICD10: E03.4] Diagnosis: Essential (primary) hypertension[ICD10: I10] Clarice Elaine MD, [facility] [address] [place] [address] CPT-4: 9921 4 10/17/2022 ([id number] EST. PATIENT, LEVEL IV Diagnosis: Essential (primary) hypertension[ICD10: I10] Diagnosis: Atrophy of thyroid (acquired)[ICD10: E03.4] Diagnosis: Type 2 diabetes mellitus with hyperglycemia[ICD10: E11.65] Clarice Elaine MD, [facility] [address] [place] [address] CPT-4: 60048 06/20/2022 ([id number]) [id number] EST. PATIENT, LEVEL IV Diagnosis: Cough in adult[ICD10: R05.9] Diagnosis: Gastro-esophageal reflux disease with esophagitis[ICD10: K21.00] Diagnosis: Esophageal pain[ICD10: K22.89] Clarice Elaine MD, [facility] [address] [place] [address] CPT-4: 64556 06/05 ([id number]) 86956 EST. PATIENT, LEVEL IV Diagnosis: Pancreatic cyst[ICD10: K86.2] Diagnosis: Rash and nonspecific skin eruption[ICD10: R21] Diagnosis: Cyst of buttocks[ICD10: L72.9] Clarice Elaine MD, [facility] [address] [place] [address] CPT-4: 01340 02/23 ([id number]) 28396 EST. PATIENT, LEVEL III Diagnosis: Cellulitis of left buttock[ICD10: L03.317] Socorro Elaine MD, [facility] [address] [place] [address] CPT-4: 9921 3 02/20/2022 ([id number]) 65871 EST. PATIENT, LEVEL IV Diagnosis: Essential (primary) hypertension[ICD10: I10] Diagnosis: Type 2 diabetes mellitus with hyperglycemia[ICD10: OBN6725] Diagnosis: Atrophy of thyroid (acquired)[ICD10: E03.4] Diagnosis: Paroxysmal atrial fibrillation[ICD10: I48.0] Clarice Elaine MD, [facility] [address] [place] [address] CPT-4: 9921 4 02/06/2022 ([id number]) 24766 EST. PATIENT, LEVEL IV Diagnosis: Essential (primary) hypertension[ICD10: I10] Diagnosis: Mild intermittent asthma in adult without complication[ICD10: J45.21] Diagnosis: Atrophy of thyroid (acquired)[ICD10: E03.4] Diagnosis: Type 2 diabetes mellitus without complications[ICD10: E11.9] Clarice Elaine MD, [facility] [address] [place] [address] CPT-4: 75585 08/08/2021 ([id number]) 19596 EST. PATIENT, LEVEL IV Diagnosis: Essential (primary) hypertension[ICD10: I10] Diagnosis: Mild intermittent asthma in adult without complication[ICD10: J45.21] Diagnosis: Atrophy of thyroid (acquired)[ICD10: E03.4] Diagnosis: Type 2 diabetes mellitus without complications[ICD10: E11.9] Clarice Elaine MD, [facility] [address] [place] [address] CPT-4: 24127 04/05/2021 ([id number]) 94460 EST. PATIENT, LEVEL IV Diagnosis: Essential (primary) hypertension[ICD10: I10] Diagnosis: Atrophy of thyroid (acquired)[ICD10: E03.4] Diagnosis: Type 2 diabetes mellitus without complications[ICD10: E11.9] Clarice Elaine MD, [facility] [address] [place] [address] CPT-4: 18914 11/30/2020 ([id number]) 96592 EST. PATIENT, LEVEL IV Diagnosis: Atrophy of thyroid (acquired)[ICD10: E03.4] Diagnosis: Essential (primary) hypertension[ICD10: I10] Diagnosis: Type 2 diabetes mellitus with hyperglycemia[ICD10: E11.65] Diagnosis: Paroxysmal atrial fibrillation[ICD10: I48.0] Clarice Elaine MD, [facility] [address] [place] [address] CPT-4: 9921 4 08/05/2020 ([id number]) 21557 EST. PATIENT, LEVEL IV Diagnosis: Influenza vaccine administered[ICD10: Z23] Diagnosis: Essential (primary) hypertension[ICD10: I10] Diagnosis: Atrophy of thyroid (acquired)[ICD10: E03.4] Diagnosis: Type 2 diabetes mellitus without complications[ICD10: E11.9] Clarice Elaine MD, [facility] [address] [place] [address] CPT-4: 51774 04/07/2020 ([id number]) 62528 EST. PATIENT, LEVEL III Diagnosis: Type 2 diabetes mellitus without complications[ICD10: E11.9] Clarice Elaine MD, [facility] [address] [place] [address] CPT-4: 02658 02/12/2020 ([id number]) 37386 EST. PATIENT, LEVEL III Diagnosis: Essential (primary) hypertension[ICD10: I10] Diagnosis: Type 2 diabetes mellitus without complications[ICD10: E11.9] Clarice Elaine [facility] [address] [place], [place] [address] CPT-4: 76659 12/09/2019 ([id number]) 39976 EST. PATIENT, LEVEL IV Diagnosis: Essential (primary) hypertension[ICD10: I10] Diagnosis: Type 2 diabetes mellitus with hyperglycemia[ICD10: E11.65] Diagnosis: Atrophy of thyroid (acquired)[ICD10: E03.4] Clarice Elaine MD, [facility] [address] [place] [address] CPT-4: 9921 4 09/09/2019 ([id number]) 92749 EST. PATIENT, LEVEL IV Diagnosis: Type 2 diabetes mellitus with hyperglycemia[ICD10: E11.65] Diagnosis: Essential (primary) hypertension[ICD10: I10] Diagnosis: VACCIN FOR INFLUENZA[ICD10: Z23] Diagnosis: Mild intermittent asthma in adult without complication[ICD10: J45.20] Clarice Elaine MD, [facility] [address] [place] [address] CPT-4: 30761 05/13/2019 ([id number]) 64542 EST. PATIENT, LEVEL III Diagnosis: Type 2 diabetes mellitus without complications[ICD10: E11.9] Diagnosis: Essential (primary) hypertension[ICD10: I10] Clarice Elaine MD, [facility] [address] [place] [address] CPT-4: 9921 3 02/05/2019 ([id number]) 36295 EST. PATIENT, LEVEL IV Diagnosis: Essential (primary) hypertension[ICD10: I10] Diagnosis: Mild intermittent asthma with (acute) exacerbation[ICD10: J45.21] Diagnosis: Type 2 diabetes mellitus with hyperglycemia[ICD10: E11.65] Diagnosis: Acute bronchitis due to other specified organisms[ICD10: J20.8] Clarice Elaine MD, [facility] [address] [place] [address] CPT-4: 18774 01/21/2019 ([id number]) 55947 EST. PATIENT, LEVEL IV Diagnosis: Cough[ICD10: R05] Diagnosis: Atrophy of thyroid (acquired)[ICD10: E03.4] Diagnosis: Type 2 diabetes mellitus with hyperglycemia[ICD10: E11.65] Clarice Elaine MD, [facility] [address] [place] [address] CPT-4: 77268 09/23/2018 ([id number]) 58754 EST. PATIENT, LEVEL IV Diagnosis: Type 2 diabetes mellitus with hyperglycemia[ICD10: E11.65] Diagnosis: Atrophy of thyroid (acquired)[ICD10: E03.4] Clarice Elaine MD, [facility] [address] [place] [address] CPT-4: 9921 4 05/27/2018 ([id number]) 46571 EST. PATIENT, LEVEL IV Diagnosis: Type 2 diabetes mellitus without complications[ICD10: E11.9] Diagnosis: Paroxysmal atrial fibrillation[ICD10: I48.0] Diagnosis: Essential (primary) hypertension[ICD10: I10] Clarice Elaine MD, [facility] [address] [place] [address] CPT-4: 9921 4 01/21/2018 ([id number]) 34358 EST. PATIENT, LEVEL III Diagnosis: Paroxysmal atrial fibrillation[ICD10: I48.0] Diagnosis: Other specified anemias[ICD10: D64.89] Clarice Bay MD, [facility] [address] [place] [address] CPT-4: 9921 3 12/04/2017 ([id number]) 19825 EST. PATIENT, LEVEL IV Diagnosis: Benign paroxysmal vertigo, bilateral[ICD10: H81.13] Diagnosis: Essential (primary) hypertension[ICD10: I10] Diagnosis: Other fatigue[ICD10: R53.83] Diagnosis: Other specified anemias[ICD10: D64.89] Diagnosis: Other allergic rhinitis[ICD10: J30.89] Socorro Bay MD, [facility] [address] [place] [address] CPT-4: 9921 4 11/13/2017 ([id number]) 95441 EST. PATIENT, LEVEL III Diagnosis: Mild intermittent asthma with (acute) exacerbation[ICD10: J45.21] Diagnosis: Cough[ICD10: R05] Socorro Elaine MD, [facility] [address] [place] [address] CPT-4: 36056 10/30/2017 ([id number]) 15171 EST. PATIENT, LEVEL IV Diagnosis: Gastro-esophageal reflux disease without esophagitis[ICD10: K21.9] Diagnosis: Type 2 diabetes mellitus without complications[ICD10: E11.9] Diagnosis: Other specified anemias[ICD10: D64.89] Diagnosis: Paroxysmal atrial fibrillation[ICD10: I48.0] Socorro Elaine MD, [facility] [address] [place] [address] CPT-4: 9921 4 09/20/2017 ([id number]) 63971 EST. PATIENT, LEVEL III Diagnosis: Essential (primary) hypertension[ICD10: I10] Clarice Elaine MD, [facility] [address] [place] [address] CPT-4: 9921 3 05/29/2017 ([id number]) 45141 EST. PATIENT, LEVEL III Diagnosis: Acute bronchitis due to other specified organisms[ICD10: J20.8] Diagnosis: Cough[ICD10: R05] Diagnosis: Other chest pain[ICD10: R07.89] Clarice sales MD, [facility] [address] [place] [address] CPT-4: 9921 3 05/14/2017 ([id number]) 36662 EST. PATIENT, LEVEL IV Diagnosis: Type 2 diabetes mellitus with hyperglycemia[ICD10: E11.65] Diagnosis: Essential (primary) hypertension[ICD10: I10] Diagnosis: Mild intermittent asthma with (acute) exacerbation[ICD10: J45.21] Clarice Elaine MD, [facility] [address] [place] [address] CPT-4: 16965 03/06/2017 ([id number]) 10158 EST. 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 PATIENT, LEVEL III Diagnosis: Mild intermittent asthma with (acute) exacerbation[ICD10: J45.21] Diagnosis: Gastro-esophageal reflux disease without esophagitis[ICD10: K21.9] Jayne Elaine MD, [facility] [address] [place] [address] CPT-4: 41475 10/12/2016 ([id number]) 88831 EST. PATIENT, LEVEL IV Diagnosis: Type 2 diabetes mellitus with hyperglycemia[ICD10: E11.65] Diagnosis: Essential (primary) hypertension[ICD10: I10] Diagnosis: Mild intermittent asthma with (acute) exacerbation[ICD10: J45.21] Clarice Elaine MD, [facility] [address] [place] [address] CPT-4: 46890 09/04/2016 24447 EST. PATIENT, LEVEL III Diagnosis: Pain in left ankle and joints of left foot[ICD10: M25.572] Diagnosis: Localized edema[ICD10: R60.0] Jayne Elaine MD, [facility] [address] [place] [address] CPT-4: 89729 05/30 ([id number]) 46541 EST. PATIENT, LEVEL III Diagnosis: Type 2 diabetes mellitus with hyperglycemia[ICD10: E11.65] Clarice Elaine MD, [facility] [address] [place] [address] CPT-4: 59078 05/01/2016 ([id number]) 58374 EST. PATIENT, LEVEL IV Diagnosis: Type 2 diabetes mellitus without complications[ICD10: E11.9] Diagnosis: Moderate persistent asthma, uncomplicated[ICD10: J45.40] Diagnosis: Paroxysmal atrial fibrillation[ICD10: I48.0] Clarice Elaine MD, [facility] [address] [place] [address] CPT-4: 9921 4 02/29/2016 ([id number]) 42617 EST. PATIENT, LEVEL IV Diagnosis: Paroxysmal atrial fibrillation[ICD10: I48.0] Diagnosis: Hypothyroidism, unspecified[ICD10: E03.9] Diagnosis: Type 2 diabetes mellitus without complications[ICD10: E11.9] Diagnosis: Essential (primary) hypertension[ICD10: I10] Diagnosis: Acute maxillary sinusitis, unspecified[ICD10: J01.00] Diagnosis: Moderate persistent asthma, uncomplicated[ICD10: J45.40] Clarice Elaine MD, [facility] [address] [place] [address] CPT-4: 27206 02/03/2016 ([id number]) 97930 EST. PATIENT, LEVEL IV Diagnosis: Type 2 diabetes mellitus without complications[ICD10: E11.9] Diagnosis: Hypothyroidism, unspecified[ICD10: E03.9] Diagnosis: Moderate persistent asthma, uncomplicated[ICD10: J45.40] Diagnosis: Essential (primary) hypertension[ICD10: I10] Clarice Elaine MD, [facility] [address] [place] [address] CPT-4: 9921 4 12/21/2015 ([id number]) 25199 EST. 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 PATIENT, LEVEL IV Diagnosis: Type 2 diabetes mellitus without complications[ICD10: E11.9] Diagnosis: Essential (primary) hypertension[ICD10: I10] Diagnosis: Hypothyroidism, unspecified[ICD10: E03.9] Clarice Elaine MD, [facility] [address] [place] [address] CPT-4: 9921 4 06/22/2015 ([id number]) 59227 EST. PATIENT, LEVEL IV Diagnosis: ESSENTIAL HYPERTENSION[ICD9: 401.9] Diagnosis: DIABETES TYPE II[ICD9: 250.00] Clarice Elaine MD, [facility] [address] [place] [address] CPT-4: 11945 12/22 ([id number]) 50379 EST. PATIENT, LEVEL IV Diagnosis: ACUTE BRONCHITIS[ICD9: 466.0] Diagnosis: Acute asthma exacerbation[ICD9: 493.92] Diagnosis: ESSENTIAL HYPERTENSION[ICD9: 401.9] Diagnosis: DIABETES TYPE II[ICD9: 250.00] Clarice Elaine MD, [facility] [address] [place] [address] CPT-4: 84419 08/17 ([id number]) 12097 EST. PATIENT, LEVEL IV Diagnosis: DIABETES TYPE II[ICD9: 250.00] Diagnosis: ESSENTIAL HYPERTENSION[ICD9: 401.9] Diagnosis: Acute asthma exacerbation[ICD9: 493.92] Clarice Elaine MD, [facility] [address] [place] [address] CPT-4: 9921 4 04/13/2014 ([id number]) 25313 EST. PATIENT, LEVEL IV Diagnosis: DIABETES TYPE II[ICD9: 250.00] Diagnosis: ESSENTIAL HYPERTENSION[ICD9: 401.9] Diagnosis: HYPOTHYROIDISM[ICD9: 244.9] Clarice Elaine MD, [facility] [address] [place] [address] CPT-4: 72109 12/11 ([id number]) 02960 EST. PATIENT, LEVEL IV Diagnosis: DM W/O COMPLICATION TYPE II, UNCONTROLLED[ICD9: 250.02] Diagnosis: ESSENTIAL HYPERTENSION[ICD9: 401.9] Clarice sandhu MD, [facility] [address] [place] [address] CPT-4: 9921 4 11/10/2013 ([id number]) 99891 EST. PATIENT, LEVEL IV Diagnosis: DM W/O COMPLICATION TYPE II, UNCONTROLLED[SNOMED: 46983700] Diagnosis: ESSENTIAL HYPERTENSION[SNOMED: 30253979] Diagnosis: ACUTE BRONCHITIS[ICD9: 466.0] Clarice Elaine MD, [facility] [address] [place] [address] CPT-4: 22209 08/11 ([id number]) 22355 EST. PATIENT, LEVEL IV Diagnosis: DM W/O COMPLICATION TYPE II, UNCONTROLLED[SNOMED: 99687204] Diagnosis: ATRIAL FIBRILLATION[ICD9: 427.31] Diagnosis: ESSENTIAL HYPERTENSION[SNOMED: 40372014] Clarice Elaine MD, [facility] [address] [place] [address] CPT-4: 9921 4 05/12/2013 ([id number]) 24798 EST. PATIENT, LEVEL IV Diagnosis: DM W/O COMPLICATION TYPE II, UNCONTROLLED[SNOMED: 05033257] Diagnosis: ESSENTIAL HYPERTENSION[SNOMED: 73138094] Clarice Elaine MD, [facility] [address] [place] [address] CPT-4: 9921 4 01/06/2013 ([id number]) 07226 EST. PATIENT, LEVEL IV Diagnosis: DIABETES TYPE II[SNOMED: 840041269] Diagnosis: ESSENTIAL HYPERTENSION[SNOMED: 49964791] Diagnosis: Acute asthma exacerbation[ICD9: 493.92] Diagnosis: Fatigue[ICD9: 780.79] [facility] [address] [place] [address] CPT-4: 94004 10/07/2012 ([id number]) 14682 EST. PATIENT, LEVEL IV Diagnosis: DM W/O COMPLICATION TYPE II, UNCONTROLLED[SNOMED: 97572812] Diagnosis: Lump of breast, right[ICD9: 611.72] Diagnosis: Lump on neck[ICD9: 784.2] Clarice Elaine MD, [facility] [address] [place] [address] CPT-4: 33305 09/11/2012 ([id number]) 89530 EST. PATIENT, LEVEL IV Diagnosis: ESSENTIAL HYPERTENSION[SNOMED: 04416928] Diagnosis: Atrial fibrillation[ICD9: 427.31] Diagnosis: Fatigue[ICD9: 780.79] Diagnosis: Encounter for monitoring digoxin therapy[ICD9: V58.83] Clarice Elaine MD, [facility] [address] [place] [address] CPT-4: 46448 07/15/2012 ([id number]) 77235 EST. PATIENT, LEVEL IV Diagnosis: DIABETES TYPE II[SNOMED: 497689185] Diagnosis: ESSENTIAL HYPERTENSION[SNOMED: 65731851] Clarice Elaine MD, [facility] [address] [place] [address] CPT-4: 9921 4 05/02/2012 ([id number]) 39933 EST. PATIENT, LEVEL IV Diagnosis: DM W/O COMPLICATION TYPE II, UNCONTROLLED[SNOMED: 79119394] Diagnosis: ESSENTIAL HYPERTENSION[SNOMED: 93264828] Diagnosis: HYPERLIPIDEMIA[ICD9: 272.4] Clarice Elaine MD, [facility] [address] [place] [address] CPT-4: 96347 03/28 ([id number]) 60022 EST. PATIENT, LEVEL IV Diagnosis: DM W/O COMPLICATION TYPE II, UNCONTROLLED[SNOMED: 86149516] Diagnosis: ESSENTIAL HYPERTENSION[SNOMED: 51603139] Clarice Elaine MD, [facility] [address] [place] [address] CPT-4: 9921 4 11/27/2011 ([id number]) 30839 EST. PATIENT, LEVEL III Diagnosis: ESSENTIAL HYPERTENSION[SNOMED: 47718001] Diagnosis: ANEMIA[ICD9: 285.9] Diagnosis: Gastritis[ICD9: 535.50] Clarice Elaine MD, [facility] [address] [place] [address] CPT-4: 82538 10/25/2011 ([id number]) 85176 EST. PATIENT, LEVEL III Diagnosis: Anemia associated with acute blood loss[ICD9: 285.1] Diagnosis: Gastritis, acute with hemorrhage[ICD9: 535.01] Clarice Elaine MD, [facility] [address] [place] [address] CPT-4: 9921 3 10/11/2011 ([id number]) 97107 EST. PATIENT, LEVEL IV Diagnosis: Hematochezia[ICD9: 578.1] Diagnosis: ENCNTR LONG-RX USE NEC[ICD9: V58.69] Diagnosis: Abdominal pain[ICD9: 789.00] Clarice Elaine MD, [facility] [address] [place] [address] CPT-4: 26333 10/03 ([id number]) 11922 EST. PATIENT, LEVEL IV Diagnosis: DIABETES TYPE II[SNOMED: 351311992] Diagnosis: ESSENTIAL HYPERTENSION[SNOMED: 22045614] Diagnosis: Coronary artery disease[ICD9: 414.00] Clarice Elaine MD, [facility] [address] [place] [address] CPT-4: 9921 4 09/25/2011 ([id number]) 91771 EST. PATIENT, LEVEL IV Diagnosis: Muscle spasm[ICD9: 728.85] Diagnosis: Arthralgia[ICD9: 719.40] Diagnosis: ESSENTIAL HYPERTENSION[SNOMED: 34648637] Clarice Elaine MD, [facility] [address] [place] [address] CPT-4: 9921 4 07/31/2011 96425 EST. PATIENT, LEVEL III Diagnosis: ACUTE SINUSITIS[ICD9: 461.9] Diagnosis: Cervicalgia[ICD9: 723.1] [facility] [address] [place] [address] CPT-4: 83166 05/22/2011 97357 EST. PATIENT, LEVEL IV Diagnosis: HYPERLIPIDEMIA[ICD9: 272.4] Diagnosis: HYPOTHYROIDISM[ICD9: 244.9] Diagnosis: DM W/O COMPLICATION TYPE II, UNCONTROLLED[SNOMED: 25795383] [facility] [address] [place] [address] CPT-4: 02814 05/05/2011 Plan of Care Planned Activity Notes Codes Status Date Visit Plan: Diabetes Mellitus - uncontro lled [...] blood thinners. 10/17/2022 Appointment: Clarice Elaine WPtel: [address] [place], [place] [phone] [place] (15 min) Moderate 10/17/2022 Patient Education: [...] blood thinners. 06/20/2022 Appointment: Clarice Elaine WPtel: [phone] [place] (15 min) Moderate 06/20/2022 Patient Education: [...] gi symptoms 06/05/2022 Appointment: Clarice Elaine WPtel: [phone] [facility]/05/[facility] Patient Education: Patient Medication Summary [...] if worsens 02/23/2022 Appointment: Socorro Salmeron WPtel: [address] [place], [place] [phone] (30 min) Complex 02/23/2022 Patient Education: Patient Medication Summary Completed 02/23/2022 Visit Plan: Cellulitis - left buttock -r x for oral antibiotics to take as directed, return to clinic for recheck, call for acute change in symptoms, worsening redness, warmth, discharge. 02/20/2022 Appointment: Socorro Salmeron WPtel: [phone] (30 min) Complex 02/20/2022 Patient Education: [...] 100mg daily 02/06/2022 Appointment: Clarice Elaine WPtel: [phone] [phone] (30 min) Complex 02/06/2022 Patient Education: Patient Medication Summary Completed 02/06/2022 Patient Education: Hypertension Completed 02/06/2022 Patient Education: Patient Medication Summary Completed 01/04/2022 Appointment: Socorro Salmeron WPtel: [phone] [phone] (15 min) Moderate 12/12/2021 Visit Plan: Hypertension [...] Diabetes Completed 08/08/2021 Appointment: Socorro Salmeron WPtel: [phone] [phone] (30 min) Complex 08/01/2021 Visit Plan: [...] clinic 04/05/2021 Appointment: [phone] [phone] [place] (15 min) Moderate 04/05/2021 Patient Education: Patient [...] symptoms. 11/30/2020 Appointment: Clarice Elaine WPtel: [phone] [phone] (15 min) Moderate 11/30/2020 Patient Education: Patient [...] HFA 08/05/2020 Appointment: Clarice Elaine WPtel: [phone] [phone] (15 min) Moderate 08/05/2020 Patient Education: Patient [...] symptoms. 04/07/2020 Appointment: [facility] [phone] [phone] (15 min) Moderate 04/07/2020 Patient Education: Patient [...] less controlled. 02/12/2020 Appointment: Clar[facility] [phone] [phone] [facility] 02/12/2020 Patient Education: Patient Medication Summary [...] home. 12/09/2019 Appointment: Clar[facility] [phone] [phone] [facility]Health 12/09/2019 Patient Education: Patient Medication Summary Completed [...] uncontrolled. 09/09/2019 Appointment: Clarice Elaine [facility] [phone] [phone] (15 min) Moderate 09/09/2019 Patient Education: [...] in clinic 05/13/2019 Appointment: Clarice Elaine WPtel: [phone] [phone] (15 min) Moderate 05/13/2019 Patient Education: Patient Medication Summary Completed 05/13/2019 Patient Education: Diabetes Completed 05/13/2019 Patient Education: Patient Medication Summary Completed 04/10/2019 Care Plan[facility] Pending 04/10/2019 Care Plan: TSH Pending 04/10/2019 [...] less controlled. 02/05/2019 Appointment: Clarice Elaine WPtel: [phone] [phone] (15 min) Moderate 02/05/2019 Patient Education: Patient [...] acting insulin. 01/21/2019 Appointment: Clarice Elaine WPtel: [phone] [place] (15 min) Moderate 01/21/2019 Patient Education: Patient Medication Summary Completed 01/21/2019 Patient Education: Diabetes Completed 01/21/2019 Referral: [facility] Patient informed. Referral info faxed. Completed 09/26/2018 [...] less controlled. 09/23/2018 Appointment: Clarice Elaine WPtel: [phone] [phone] (15 min) Moderate 09/23/2018 Patient Education: Patient Medication Summary Completed 09/23/2018 Patient Education: Diabetes Completed 09/23/2018 Care Plan: Referral Order SNOMED-CT : 30 [id number] Pending 09/23/2018 Appointment: Clarice Elaine WPtel: [phone] [phone] (15 min) Moderate 05/27/2018 Patient Education: Patient [...] becoming uncontrolled. 01/21/2018 Appointment: Clar[facility] [phone] [phone] (15 min) Moderate 01/21/2018 Patient Education: Patient [...] IV. 12/04/2017 Appointment: Clarice Elaine WPtel: [phone] [phone] (15 min) Moderate 12/04/2017 Patient Education: Patient [...] instructions/medication interventions. HTN-elevated today- monitor at home Twyebs-kqdfbgp-uzvnd labs Allergies-add flonase nasal spray 11/13/2017 Appointment: Socorro Salmeron WPtel: [phone] [phone] (30 min) Complex 11/13/2017 Patient Education: [...] changes. 10/30/2017 Appointment: Socorro Salmeron WPtel: [phone] [phone] (30 min) Complex 10/30/2017 Patient Education: Patient Medication Summary Completed 10/30/2017 Appointment: Clarice Elaine WPtel: [phone] (15 min) Moderate 09/25/2017 Visit Plan: GERD-continue protonix and c arafate-low spice diet -call if symptoms uncontrolled Melana-history of anemia-check Hgb-stay off aspirin per Dr Aguilar Afib-now in NSR -continue xarelto-follow up with Dr Aguilar as scheduled DM- check Hgb A1C 09/20/2017 Appointment: Socorro Salmeron WPtel: [phone] (30 min) Complex 09/20/2017 Patient Education: Patient Medication Summary Completed 09/20/2017 Appointment: Clarice Elaine WPtel: [phone] (15 min) Moderate 06/26/2017 Visit Plan: Hypertension [...] removal process. 05/29/2017 Appointment: Clarice Elaine WPtel: [phone] (15 min) Moderate 05/29/2017 Patient Education: Patient Medication Summary Completed 05/29/2017 Patient Education: Hypertension Completed 05/29/2017 Visit Plan: Bronchitis - acute case of b ronchitis identified. Pt has been given antibiotics, breathing treatments as appropriate, and pt has been instructed to call if symptoms are not improved, or if symptoms acutely worsen. Chest pain - chest wall - toradol shot hospira [id number] november 2018 05/14/2017 Appointment: Clarice Elaine [facility]Ptel[facility] [phone] [phone] [place] (15 min) Moderate 05/14/2017 Patient Education: [...] today. 03/06/2017 Appointment: Clarice Elaine [facility]Ptel[facility] [phone] [phone] [place] (15 min) Moderate 03/06/2017 Patient Education: Patient Medication Summary Completed 03/06/2017 Patient Education: Hypertension Completed 03/06/2017 Appointment: Clarice Elaine [facility]el[facility] [phone] [phone] [place] (15 min) Moderate 12/05/2016 Visit Plan: [...] treatment. 11/01/2016 Appointment: Clarice Elaine WPtel: [phone] [phone] (15 min) Moderate 11/01/2016 Patient Education: Patient Medication Summary Completed 11/01/2016 Visit Plan: ADMIT FROM CLINIC TO [facility] - PT IS ACUTELY ILL, REQUIRES HOSPITALIZATION. THE PATIENT HAS BEEN EVALUATED IN CLINIC AND THIS STANDS THE HOSPITAL HISTORY AND PHYSICAL EXAMINATION. THE PATIENT HAS BEEN SENT TO THE HOSPITAL WITH WRITTEN ORDERS FOR TREATMENT AND EVALUATION OF THE ACUTE ILLNESS. 10/18/2016 Appointment: Clarice Elaine WPtel: [phone] [phone] (15 min) Moderate 10/18/2016 Patient Education: Patient [...] changes 10/12/2016 Appointment: Jay[facility] Ragland [facility]el[phone] [phone] (30 min) Complex 10/12/2016 Patient Education: Patient [...] home. 09/04/2016 Appointment: Clarice Elaine [facility]el[facility] [phone] [phone] (15 min) Moderate 09/04/2016 Patient Education: Patient Medication Summary Completed 09/04/2016 Patient Education: Obesity Completed 0 09/04/2016 Patient Education: Hypertension Completed 09/04/2016 Appointment: Jayne Ragland [facility]Ptel: [phone] [facility] [facility] - Annual Wellness Visit 07/2015 Visit Plan: [...] for greater blood glucose control. 05/01/2016 Appointment: [place] Clarice WPtel: [facility] (15 min) Moderate 05/01/2016 Patient Education: [...] acute changes 02/29/2016 Appointment: Clarice Elaine WPtel: [facility]5 [id number] Surgical Procedure 02/29/2016 Patient Education: Patient Medication [...] readings. 12/21/2015 Appointment: Clarice Elaine WPtel: [phone] [phone] (15 min) Moderate 12/21/2015 Patient Education: Patient [...] today 10/25/2015 Appointment: Clarice Elaine WPtel: [phone] [phone] (15 min) Moderate 10/25/2015 Patient Education: Patient [...] ACUTE ILLNESS. 10/19/2015 Appointment: Socorro Salmeron WPtel: [phone] (30 min) Complex 10/19/2015 Patient Education: Patient [...] at home. 08/17/2014 Appointment: [phone] Follow up 08/17/2014 Patient Education: Patient [...] albuterol. 04/13/2014 Appointment: Clar[facility]el[phone] Follow up 04/13/2014 Patient Education: Patient [...] control. 12/11/2013 Appointment: Clar[facility]Ptel[phone] Follow up 12/11/2013 Patient Education: Patient Medication [...] concerns. 11/10/2013 Appointment: Clarice Elaine WPtel: [phone] [phone] [place] Follow up 11/10/2013 Patient Education: Patient Medication Summary Completed 11/10/2013 Patient Education: Hypertension Completed 11/10/2013 Appointment: Clarice Elaine WPtel: [phone] [phone] [place] Lab Draw 11/04/2013 Patient Education: Patient [...] pharmacy. 08/11/2013 Appointment: Clarice Elaine [facility]Ptel[phone] [place] Follow up 08/11/2013 Patient Education: Patient Medication Summary Completed 08/11/2013 Patient Education: Hypertension Completed 08/11/2013 Appointment: Clar[facility]Ptel[phone] Follow up 05/12/2013 Patient Education: Patient Medication [...] control. 01/06/2013 Appointment: Clar[facility]Ptel[phone] Follow up 01/06/2013 Patient Education: Patient Medication [...] today. 10/07/2012 Appointment: Clarice [facility]Ptel[phone] Follow up 10/07/2012 Patient Education: Patient [...] ultrasound 09/11/2012 Appointment: Clar[facility]Ptel[phone] Follow up 09/11/2012 Patient Education: Patient Medication [...] level. 07/15/2012 Appointment: Clarice Elaine WPtel: [phone] [phone] Follow up 07/15/2012 Patient Education: Patient Medication [...] Plavix. 05/02/2012 Appointment: Clarice Elaine WPtel: [phone] [phone] Follow up 05/02/2012 Patient Education: Patient Medication [...] COMPELTELY. 03/28/2012 Appointment: Clarice Elaine WPtel: [phone] [id number] [place] [address] Follow up 03/28/2012 Patient Education: Patient Medication [...] home. 11/27/2011 Appointment: Clarice Elaine WPtel: [phone] [phone] Follow up 11/27/2011 Patient Education: Patient Medication Summary Completed 11/27/2011 Patient Education: High Blood Pressure: Essential Hypertension Completed 11/27/2011 Patient Education: Patient Medication Summary Completed 11/06/2011 Appointment: Clarice Elaine WPtel: [facility]5 [phone] Other 11/03/2011 Appointment: Clarice Elaine WPtel: [address] [place], [place] [phone] Other 11/02/2011 Appointment: Clarice Elaine WPtel: [phone] [place] Lab Draw 10/31/2011 Visit Plan: Hypertension [...] times daily. 10/25/2011 Appointment: Clarice Elaine WPtel: [facility]5 [phone] Follow up 10/25/2011 Patient Education: Patient Medication Summary Completed 10/25/2011 Patient Education: High Blood Pressure: Essential Hypertension Completed 10/25/2011 Appointment: Clarice Elaine WPtel: [facility]5 [phone] [place] Lab Draw 10/16/2011 Patient Education: Patient [...] improved from 10.6 to 11.4 10/11/2011 Appointment: Clarcie Elaine WPtel: [address] [place], [place] [id number] [place] [address] Other 10/11/2011 Patient Education: Patient Medication Summary Completed 10/11/2011 Appointment: Clarice Elaine WPtel: [facility]9 [phone] Other 10/10/2011 Visit Plan: Abdominal pain and [...] remained stable. 10/04/2011 Appointment: Clarice Elaine WPtel: [facility] [place] [address] Follow up 10/04/2011 Patient Education: Patient Medication [...] not improve. 09/25/2011 Appointment: Clarice Elaine WPtel: [facility]9 [phone] Other 09/25/2011 Patient Education: Patient Medication Summary Completed 09/25/2011 Patient Education: High Blood Pressure: Essential Hypertension Completed 09/25/2011 Appointment: Clarice Elaine WPtel: [phone] [phone] Other 07/31/2011 Patient Education: Patient Medication Summary [...] on use. 05/22/2011 Appointment: Socorro Salmeron WPtel: [phone] [phone] Other 05/22/2011 Patient Education: Patient Medication [...] dose increased. 05/05/2011 Appointment: Clarice Elaine WPtel: [phone] [phone] Other 05/05/2011 Patient Education: Patient Medication Summary Completed 05/05/2011 Patient Education: High Cholesterol Compl eted 05/05/2011 Appointment: Clarice Elaine WPtel: [phone] [phone] Other 05/04/2011 Appointment: Clarice Elaine WPtel: [facility]4 [phone] Lab Draw 05/02/2011 Patient Education: Patient Medication Summary Completed 05/02/2011 Patient Education: High Blood Pressure: Essential Hypertension Completed 05/02/2011 Referral: [facility] Referral Appointment Mukul so Instructions Comment Date start with 0.25mg of [...] further instructions/medication interventions. HTN-elevated today-monitor at home Hsxfhi-igjdtfz-tltnb labs Allergies-add flonase nasal spray 11/13/2017 restart [...] - chest wall - toradol shot [facility] [id number] november 2018 05/14/2017 . Diabetes Mellitus - [...] - look at the organic section at [facility] or in [employer] at the peanut butter [...] . Asthma Exacerbation - Asthma is a therapeutic case manager marguerite problem for this patient, however, the [...] Diabetes Mellitus - controlled - per r [facility] FSBS reports. I have recommended for [...] 09/25/2011 Recommend claritin 10mg po daily at [facility] t 2 weeks.. Recommend probiotic (over [...]
--- OUTSIDE RECORDS SUMMARY | 2022-11-09 15:40 | XMS REPORT | CCD ---
Author Author Thalia Elaine Organization Clarice Elaine MD, 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 Unknown Has nev er used illegal drugs 05/05/2011 Allergies, Adverse Reactions, Alerts Substance Reaction Codes Entered Date Inactivated Date Status noroxin RxNorm: 972451 05/05/2011 No Inactive Date Acti ve Levaquin RxNorm: 505064 10/11/2011 No Inactive Date Acti ve METRONIDAZOLE Unknown 05/05/2011 No Inactive Date Activ e trovan RxNorm: 605349 05/05/2011 No Inactive Date Acti ve MORPHINE SULFATE RxNorm: 99304 10/11/2011 No Inactive Date Active * NO KNOWN FOOD ALLERGIES Unknown 05/05/2011 No Inactiv e Date Active PREDNISONE RxNorm: 8640 05/05/2011 No Inactive Date Active cephalexin RxNorm: 718614 05/05/2011 No Inactive Date Acti ve azithromycin Unknown 10/11/2011 No Inactive Date Active theophylline RxNorm: 49090 05/05/2011 No Inactive Date Act pilar Problems [...] Start Date Stop Date Status Fill Instructions doxycycline hyclate 100 mg tablet RxNorm: 3186457 Take 1 Tablet(s) Oral three times a day 10/23/2022 10/29/2022 Active Mucinex 600 mg tablet, extended release RxNorm: 199901 Take 1 Tablet(s) Oral two times a day 10/23/2022 11/01/2022 Active amiodarone 100 mg tablet RxNorm: 134265 Take 1 Tablet(s) Oral e very other day 10/17/2022 10/11/2023 Active Jardiance 10 mg tablet RxNorm: 9934752 Take 1 Tablet(s) Oral daniela ry day 10/17/2022 11/15/2022 Active Ozempic 0.25 mg or 0.5 mg (2 mg/1.5 mL) subcutaneous p en injector RxNorm: 1503385 Inject 0.5 Milligram(s) Subcutaneous once a week 10/17/2022 02/13/2023 Active Accu-Chek Fastclix Lancet Drum RxNorm: USE 1 ROGE CET TO CHECK GLUCOSE ONCE DAILY 08/23/2022 01/14/2024 Active Jardiance 25 mg tablet RxNorm: 7129182 Take 1 Tablet(s) Oral daniela ry day 06/20/2022 10/16/2022 Inactive pantoprazole 40 mg tablet,delayed release RxNorm: 186351 Take 1 Tablet(s) Oral two times a day 06/05/2022 09/02/2022 Inactive glipizide 5 mg tablet RxNorm: 762845 Take 1 Tablet(s) Oral two times a day 03/03/2022 02/25/2023 Active triamcinolone acetonide 0.5 % topical cream RxNorm: 6964012 Apply 1 Topical three times a day 02/23/2022 03/04/2022 Inactive Bactrim DS 800 mg-160 mg tablet RxNorm: 960575 Take 1 T ablet(s) Oral two times a day 02/20/2022 02/26/2022 Inactive amiodarone 200 mg tablet RxNorm: 206544 Take 1/2 Tablet(s) Oral every day 02/12/2022 09/09/2022 Inactive amiodarone 200 mg tablet RxNorm: 165526 1/2 Tablet(s) Oral every da y 02/09/2022 02/09/2022 Inactive amiodarone 200 mg tablet RxNorm: 501463 Take 1/2 Tablet(s) Oral every day 02/09/2022 02/09/2022 Inactive amiodarone 100 mg tablet RxNorm: 001885 Take 1 Tablet(s) Oral e very day 02/07/2022 02/08/2022 Inactive this replaces the 20 0mg dose Victoza 2-Abdirizak 0.6 mg/0.1 mL (18 mg/3 mL) subcutaneous pen injector RxNorm: 790067 Inject 1.8 Milligram(s) Subcutaneous every day 02/07/2022 0 10/16/2022 Inactive 1 month supply with needles ondansetron 4 mg disintegrating tablet RxNorm: 125212 1 Tablet(s) Oral as needed 02/06/2022 No Stop Date Active Synthroid 75 mcg tablet RxNorm: 325826 Take 1 as direct ed take one tab m/w/f/sat/sun, no tabs tues/thurs 02/06/2022 06/30/2022 Inactive amiodarone 200 mg tablet RxNorm: 987072 Take 1 Tablet(s) Oral t wo times a day 02/06/2022 02/06/2022 Inactive ondansetron 4 mg disintegrating tablet RxNorm: 403930 T gisselle 1 Tablet(s) Oral four times a day as needed nausea 01/04/2022 02/02/2022 Inactive Accu-Chek Tracy Plus test strips RxNorm: USE 1 S TRIP TO CHECK GLUCOSE ONCE DAILY 12/08/2021 03/21/2025 Active Synthroid 75 mcg tablet RxNorm: 152964 TAKE 1 TABLET BY MOUTH O NCE DAILY 10/10/2021 02/05/2022 Inactive amiodarone 200 mg tablet RxNorm: 303846 Take 1 Tablet(s) Oral t wo times a day 09/13/2021 02/06/2022 Inactive diltiazem ER (XR/XT) 120 mg capsule,extended release 2 4 hr, controlled RxNorm: 854286 Take 1 Capsule(s) Oral every day 09/13/2021 01/03/2022 Inactive Accu-Chek Fastclix Lancet Drum RxNorm: USE 1 ROGE CET TO CHECK GLUCOSE ONCE DAILY 06/17/2021 06/17/2021 Inactive Accu-Chek Fastclix Lancet Drum RxNorm: USE 1 ROGE CET TO CHECK GLUCOSE ONCE DAILY 06/13/2021 06/13/2021 Inactive glipizide 5 mg tablet RxNorm: 159380 1 Tablet(s) Oral two times a day 04/05/2021 04/05/2021 Inactive Victoza 2-Abdirizak 0.6 mg/0.1 mL (18 mg/3 mL) subcutaneous pen injector RxNorm: 536177 Inject 1.2 Milligram(s) Subcutaneous every day 04/05/2021 0 02/06/2022 Inactive 1 month supply with needles Synthroid 75 mcg tablet RxNorm: 566922 TAKE 1 TABLET BY MOUTH O NCE DAILY 01/11/2021 04/10/2021 Inactive Victoza 2-Abdirizak 0.6 mg/0.1 mL (18 mg/3 mL) subcutaneous pen injector RxNorm: 052932 Milliliter(s) Subcutaneous as directed 0 .6mg daily x 1 week then 1.2mg daily 12/08/2020 12/07/2020 Inactive Trulicity is too expensive- wants to cano this victoza Victoza 2-Abdirizak 0.6 mg/0.1 mL (18 mg/3 mL) subcutaneous pen injector RxNorm: 075298 Milliliter(s) Subcutaneous as directed 0 .6mg daily x 1 week then 1.2mg daily 12/08/2020 04/04/2021 Inactive Trulicity is too expensive- wants to cano this victoza- please call her- qty sufficient for 30 days Trulicity 0.75 mg/0.5 mL subcutaneous pen injector RxNorm: 1 446092 INJECT 1 SYRINGE SUBCUTANEOUSLY ONCE A WEEK 10/13/2020 04/04/2021 Inactive Advair HFA 115 mcg-21 mcg/actuation aerosol inhaler RxNorm: 5396074 1 Puff(s) Inhalation two times a day 08/05/2020 No Stop Date Active Accu-Chek Tracy Plus test strips RxNorm: Miscell aneous USE 1 STRIP TO CHECK GLUCOSE ONCE DAILY 07/26/2020 07/26/2020 Inactive Accu-Chek Tracy Plus test strips RxNorm: Miscell aneous USE 1 STRIP TO CHECK GLUCOSE ONCE DAILY 07/26/2020 07/25/2020 Inactive Trulicity 0.75 mg/0.5 mL subcutaneous pen injector RxNorm: 1 224412 INJECT 1 SYRINGE SUBCUTANEOUSLY ONCE A WEEK 06/22/2020 10/12/2020 Inactive Accu-Chek Multiclix Lancet RxNorm: USE 1 LANCET TO CHECK GLUCOSE ONCE DAILY 04/26/2020 04/26/2020 Inactive glipizide 5 mg tablet RxNorm: 936641 1 Tablet(s) Oral two times a day 04/07/2020 04/01/2021 Inactive Synthroid 75 mcg tablet RxNorm: 728629 TAKE 1 TABLET BY MOUTH O NCE DAILY 04/07/2020 01/01/2021 Inactive Trulicity 0.75 mg/0.5 mL subcutaneous pen injector RxNorm: 1 180111 INJECT 1 SYRINGE SUBCUTANEOUSLY ONCE A WEEK 12/31/2019 06/15/2020 Inactive fluticasone 113 mcg-salmeterol 14 mcg/actuation breath activated powdr RxNorm: 6122861 INHALE 1 PUFF TWICE DAILY 12/31/2019 06/27/2020 Inactive Trulicity 0.75 mg/0.5 mL subcutaneous pen injector RxNorm: 1 029716 0.5 Milliliter(s) Subcutaneous once a week 09/09/2019 12/30/2019 Inactive Synthroid 75 mcg tablet RxNorm: 454913 TAKE 1 TABLET BY MOUTH O NCE DAILY 08/04/2019 04/06/2020 Inactive Symbicort 160 mcg-4.5 mcg/actuation HFA aerosol inhaler RxNo rm: 7757159 2 Inhalation two times a day 05/13/2019 08/04/2020 Inactive glipizide 5 mg tablet RxNorm: 647255 1 Tablet(s) Oral two times a day 05/08/2019 04/06/2020 Inactive doxycycline hyclate 100 mg tablet RxNorm: 5634881 1 Tablet(s) PO BI D 01/21/2019 02/03/2019 Inactive fluticasone 113 mcg-salmeterol 14 mcg/actuation breath activated powdr RxNorm: 4278318 1 inhale INH BID 01/21/2019 08/18/2019 Inactive Synthroid 75 mcg tablet RxNorm: 695244 TAKE 1 TABLET BY MOUTH O NCE DAILY 10/28/2018 08/03/2019 Inactive Dulera 100 mcg-5 mcg/actuation HFA aerosol inhaler RxNorm: 1 161907 1 Puff(s) INH BID 09/23/2018 01/20/2019 Inactive Kenalog 40 mg/mL suspension for injection RxNorm: 7736158 Millil iter(s) Inj 09/23/2018 09/23/2018 Inactive albuterol sulfate 2.5 mg/3 mL (0.083 %) solution for n ebulization RxNorm: 401612 USE 1 VIAL IN NEBULIZER 4 TIMES DAILY NEEDED FOR ASTHMA 0 08/26/2018 No Stop Date Active Symbicort 160 mcg-4.5 mcg/actuation HFA aerosol inhaler RxNorm: 2424180 1 INH 06/07/2018 06/06/2018 Inactive Symbicort 160 mcg-4.5 mcg/actuation HFA aerosol inhaler RxNo rm: 6816784 1 INH BID 06/07/2018 07/06/2018 Inactive glipizide 5 mg tablet RxNorm: 635193 1/2 Tablet(s) PO B ID TAKE ONE-HALF TABLET BY MOUTH TWICE DAILY 05/27/2018 05/07/2019 Inactive Synthroid 75 mcg tablet RxNorm: 729952 1 Tablet(s) PO daily 018 05/14/2018 Inactive Synthroid 75 mcg tablet RxNorm: 812382 1 Tablet(s) PO daily 018 10/27/2018 Inactive Synthroid 88 mcg tablet RxNorm: 619144 TAKE 1 TABLET BY MOUTH O NCE DAILY 04/08/2018 05/14/2018 Inactive amiodarone 200 mg tablet RxNorm: 554383 1/2 Tablet(s) PO BID 201705/26/2018 Inactive Bactrim DS 800 mg-160 mg tablet RxNorm: 208253 1 Tablet(s) PO BID 0 01/03/2018 01/02/2018 Inactive take probiotic bid x 7 days Bactrim DS 800 mg-160 mg tablet RxNorm: 712869 1 Tablet(s) PO BID 0 01/03/2018 01/09/2018 Inactive take probiotic bid x 7 days nitrofurantoin 100 mg capsule RxNorm: 114774 1 Capsule(s) PO BID 01/06/2018 Inactive nitrofurantoin 100 mg capsule RxNorm: 003614 1 Capsule(s) PO BID 12/30/2017 Inactive nitrofurantoin 100 mg capsule RxNorm: 274706 1 Capsule(s) PO BID 12/30/2017 Inactive glipizide 5 mg tablet RxNorm: 330397 TAKE ONE-HALF TABLET BY [facility] TWICE DAILY 11/23/2017 05/26/2018 Inactive meclizine 25 mg tablet RxNorm: 450519 1 Tablet(s) PO Q6 PRN 018 No Stop Date Active Kenalog 40 mg/mL suspension for injection RxNorm: 3706920 1.5 Mi lliliter(s) Inj 10/30/2017 10/30/2017 Inactive Augmentin 875 mg-125 mg tablet RxNorm: 832110 1 Tablet(s) PO BID 11/05/2017 Inactive Synthroid 88 mcg tablet RxNorm: 402437 TAKE ONE TABLET BY MOUTH ONCE DAILY 10/15/2017 04/07/2018 Inactive metformin 500 mg tablet RxNorm: 558228 TAKE ONE TABLET BY MOUTH WITH BREAKFAST AND ONE TABLET WITH LUNCH AND TWO TABLETS WITH SUPPER 10/15/20172017 Inactive albuterol sulfate 2.5 mg/3 mL (0.083 %) solution for n ebulization RxNorm: 948314 USE ONE VIAL IN NEBULIZER 4 TIMES DAILY NEEDED FOR ASTHMA 08/16/2017 08/25/2018 Inactive Plavix 75 mg tablet RxNorm: 066771 TAKE ONE TABLET BY MOUTH ONC E DAILY 06/25/2017 06/24/2017 Inactive Plavix 75 mg tablet RxNorm: 598787 1 Tablet(s) PO daily TAKE ONE TABLET BY MOUTH ONCE DAILY 06/25/2017 09/19/2017 Inactive acyclovir 800 mg tablet RxNorm: 057603 1 Tablet(s) PO QID 05/15/2017 05/14/2017 Inactive acyclovir 800 mg tablet RxNorm: 492765 1 Tablet(s) PO QID 05/15/2017 05/21/2017 Inactive tramadol 50 mg tablet RxNorm: 108278 1 Tablet(s) PO TID 05/15/2017 Inactive ketorolac 60 mg/2 mL intramuscular solution RxNorm: 684434 2 Mi lliliter(s) IM 05/14/2017 05/14/2017 Inactive Augmentin 875 mg-125 mg tablet RxNorm: 150358 1 Tablet(s) PO BID 05/23/2017 Inactive Synthroid 88 mcg tablet RxNorm: 757165 TAKE ONE TABLET BY MOUTH ONCE DAILY; NEED THYROID LABS DONE 04/16/2017 10/12/2017 Inactive Kenalog 40 mg/mL suspension for injection RxNorm: 4864175 Millil iter(s) Inj 03/06/2017 03/06/2017 Inactive metformin 500 mg tablet RxNorm: 535081 1 Tablet(s) UD 1 tab at breakfast, 1tab at lunch, 2 tab at supper 03/06/2017 09/01/2017 Inactive glipizide 5 mg tablet RxNorm: 670294 TAKE ONE-HALF TABLET BY MO UT TWICE DAILY 02/23/2017 11/19/2017 Inactive Synthroid 88 mcg tablet RxNorm: 092220 Tablet(s) PO LESLEE E ONE TABLET BY MOUTH DAILY 01/17/2017 04/15/2017 Inactive Needs thyroid la bs done Plavix 75 mg tablet RxNorm: 970317 TAKE ONE TABLET BY MOUTH ONC E DAILY 12/25/2016 06/22/2017 Inactive Kenalog 40 mg/mL suspension for injection RxNorm: 9652724 1.5 Mi lliliter(s) Inj 09/04/2016 09/04/2016 Inactive Janumet XR 100 mg-1,000 mg tablet,extended release RxNorm: 1 306717 1 Tablet(s) PO daily 09/04/2016 03/02/2017 Inactive glipizide 5 mg tablet RxNorm: 142425 TAKE ONE-HALF TABLET BY MO UTH TWICE DAILY 08/24/2016 02/19/2017 Inactive Janumet XR 50 mg-1,000 mg tablet,extended release RxNorm: 12 41479 TAKE ONE TABLET BY MOUTH ONCE DAILY 05/29/2016 09/03/2016 Inactive metoprolol tartrate 25 mg tablet RxNorm: 588049 1/4 Tablet(s) PO BI D 05/01/2016 05/29/2016 Inactive glipizide 5 mg tablet RxNorm: 751844 TAKE ONE-HALF TABLET BY [facility] TWICE DAILY 02/21/2016 08/18/2016 Inactive ProAir HFA 90 mcg/actuation aerosol inhaler RxNorm: 656832 2 Puff(s) INH PRN as needed ASTHMA 02/03/2016 03/03/2016 Inactive albuterol sulfate 2.5 mg/3 mL (0.083 %) solution for n ebulization RxNorm: 547776 1 Milliliter(s) INH QID as needed ASTHMA 02/03/2016 06/01/2016 Inactive Accu-Chek Active Test strips RxNorm: 1 test Miscellaneous homer y 02/03/2016 07/25/2020 Inactive DX250.00 Janumet XR 50 mg-1,000 mg tablet,extended release RxNorm: 12 93282 1 Tablet(s) PO daily 02/03/2016 05/28/2016 Inactive Augmentin 875 mg-125 mg tablet RxNorm: 030124 1 Tablet(s) PO BID 02/12/2016 Inactive sucralfate 1 gram tablet RxNorm: 334661 1 Tablet(s) PO QID - take 30 minutes before meals and before supper 12/21/2015 02/04/2019 Inactive metformin ER 500 mg tablet,extended release 24 hr RxNorm: 86 0975 1 Tablet(s) PO BID 12/21/2015 02/02/2016 Inactive digoxin 250 mcg tablet RxNorm: 733171 1 Tablet(s) PO daily 12/21/19 16 01/20/2018 Inactive Synthroid 88 mcg tablet RxNorm: 447744 Tablet(s) PO LESLEE E ONE TABLET BY MOUTH DAILY 12/20/2015 01/16/2017 Inactive Plavix 75 mg tablet RxNorm: 613120 1 Tablet(s) PO daily 12/20/2015 Inactive Kenalog 40 mg/mL suspension for injection RxNorm: 9624609 1 Mill iliter(s) Inj 11/11/2015 11/11/2015 Inactive Kenalog 40 mg/mL suspension for injection RxNorm: 2999264 1 Mill iliter(s) Inj 10/25/2015 10/25/2015 Inactive metformin 500 mg tablet RxNorm: 463678 2 Tablet(s) PO BID 07/16/2015 12/20/2015 Inactive metformin 500 mg tablet RxNorm: 806010 TAKE TWO TABLETS BY MOUT H TWICE DAILY 07/16/2015 12/20/2015 Inactive albuterol sulfate 2.5 mg/3 mL (0.083 %) solution for n ebulization RxNorm: 153759 1 Milliliter(s) INH QID as needed ASTHMA 07/14/2015 11/10/2015 Inactive glipizide 5 mg tablet RxNorm: 112217 1/2 Tablet(s) PO BID 02/03/2015 01/28/2016 Inactive Symbicort 160 mcg-4.5 mcg/actuation HFA aerosol inhaler RxNorm: 0397277 1 INH 01/06/2015 06/06/2018 Inactive metformin 500 mg tablet RxNorm: 641615 2 Tablet(s) PO BID 12/22/2014 06/19/2015 Inactive Plavix 75 mg tablet RxNorm: 440171 1 Tablet(s) PO daily 12/02/2014 Inactive note directions of one per day Synthroid 88 mcg tablet RxNorm: 943602 1 Tablet(s) PO d aily TAKE ONE TABLET BY MOUTH DAILY 12/02/2014 04/07/2018 Inactive Accu-Chek Active Test strips RxNorm: 1 test Miscellaneous homer y 08/17/2014 02/02/2016 Inactive DX250.00 Kenalog 40 mg/mL suspension for injection RxNorm: 3047504 Millil iter(s) Inj 08/17/2014 08/17/2014 Inactive doxycycline hyclate 100 mg tablet RxNorm: 287484 1 Tablet(s) PO BID 08/17/2014 08/26/2014 Inactive albuterol sulfate 2.5 mg/3 mL (0.083 %) solution for n ebulization RxNorm: 135225 1 Milliliter(s) INH QID as needed ASTHMA 08/17/2014 08/16/2014 Inactive albuterol sulfate 2.5 mg/3 mL (0.083 %) solution for n ebulization RxNorm: 758341 1 Milliliter(s) INH QID as needed ASTHMA 08/17/2014 12/14/2014 Inactive doxycycline hyclate 100 mg tablet RxNorm: 414547 1 Tablet(s) PO BID 08/17/2014 08/16/2014 Inactive Accu-Chek Multiclix Lancet RxNorm: 1 Miscellaneo us daily TEST BLOOD SUGAR EVERY DAY 08/17/2014 09/10/2015 Inactive DX 250.00 metformin 500 mg tablet RxNorm: 017141 TAKE TWO TABLETS BY MOUT H TWICE DAILY 06/23/2014 09/20/2014 Inactive metformin 500 mg tablet RxNorm: 778112 2 Tablet(s) PO BID 06/22/2014 12/18/2014 Inactive Bactrim DS 800 mg-160 mg tablet RxNorm: 686283 1 Tablet(s) PO BID 1 07/11/2013 05/17/2014 Inactive Bactrim DS 800 mg-160 mg tablet RxNorm: 420936 1 Tablet(s) PO BID 1 07/11/2013 05/10/2014 Inactive Kenalog 40 mg/mL suspension for injection RxNorm: 8730209 Millil iter(s) Inj 04/13/2014 04/13/2014 Inactive Accu-Chek Active Test strips RxNorm: 1 TEST MISCELLANEOUS BID 04/06/2014 10/22/2014 Inactive glipizide 5 mg tablet RxNorm: 512975 1/2 Tablet(s) PO BID 03/03/2014 02/02/2015 Inactive Synthroid 88 mcg tablet RxNorm: 346514 1 Tablet(s) PO d aily TAKE ONE TABLET BY MOUTH DAILY 12/11/2013 12/01/2014 Inactive Plavix 75 mg tablet RxNorm: 192011 1 Tablet(s) PO daily 12/11/2013 Inactive note directions of one per day glipizide 5 mg tablet RxNorm: 859046 1/2 Tablet(s) PO BID 11/10/2013 03/02/2014 Inactive Lipitor 10 mg tablet RxNorm: 480279 1 Tablet(s) PO daily 11/10/2013 0 12/21/2014 Inactive Accu-Chek Active Test strips RxNorm: strip misce llaneous TEST BLOOD SUGAR EVERY DAY 11/03/2013 07/25/2020 Inactive Accu-Chek Multiclix Lancet RxNorm: misc miscella neous TEST BLOOD SUGAR EVERY DAY 08/07/2013 08/16/2014 Inactive digoxin 125 mcg tablet RxNorm: 445376 1 Tablet(s) PO daily 08/05/19 14 10/28/2014 Inactive Accu-Chek Active Test strips RxNorm: strip misce llaneous TEST BLOOD SUGAR EVERY DAY 08/05/2013 07/25/2020 Inactive metformin 500 mg tablet RxNorm: 951735 2 Tablet(s) PO BID 06/12/2013 06/21/2014 Inactive metformin 500 mg tablet RxNorm: 689391 2 Tablet(s) PO BID 05/12/2013 06/11/2013 Inactive metformin 500 mg tablet RxNorm: 447329 Tablet(s) PO LESLEE E ONE & ONE-HALF TABLETS BY MOUTH TWICE DAILY 04/10/2013 05/11/2013 Inactive Synthroid 88 mcg tablet RxNorm: 010451 Tablet(s) PO LESLEE E ONE TABLET BY MOUTH DAILY 01/07/2013 12/19/2015 Inactive Synthroid 88 mcg tablet RxNorm: 333103 1 Tablet(s) PO d aily TAKE ONE TABLET BY MOUTH DAILY 01/06/2013 12/10/2013 Inactive Plavix 75 mg tablet RxNorm: 418486 1 Tablet(s) PO daily 12/09/2012 Inactive note directions of one per day Lipitor 80 mg tablet RxNorm: 411135 Tablet(s) PO TAKE 1 TABLET BY MOUTH EVERY DAY 10/28/2012 11/09/2013 Inactive Synthroid 88 mcg tablet RxNorm: 525579 Tablet(s) PO LESLEE E ONE TABLET BY MOUTH DAILY 10/07/2012 10/06/2012 Inactive Synthroid 88 mcg tablet RxNorm: 819216 1 Tablet(s) PO d aily TAKE ONE TABLET BY MOUTH DAILY 10/07/2012 01/05/2013 Inactive Kenalog 40 mg/mL Susp for Injection RxNorm: 4200312 1 Milliliter (s) IM 10/07/2012 10/07/2012 Inactive digoxin 250 mcg tablet RxNorm: 5968676 1/2 Tablet(s) PO daily 07/1508/04/2013 Inactive Synthroid 88 mcg tablet RxNorm: 010905 Tablet(s) PO LESLEE E ONE TABLET BY MOUTH DAILY 06/28/2012 10/06/2012 Inactive Accu-Chek Multiclix Lancet RxNorm: Misc Miscellaneous 06/05/2012 0 07/25/2020 Inactive TEST BLOOD SUGAR EVERY DAY Accu-Chek Active Test Strips RxNorm: Strip Miscellaneous 2 07/25/2020 Inactive TEST BLOOD SUGAR EVERY DAY Lipitor 80 mg tablet RxNorm: 932343 1/2 Tablet(s) PO daily 03/28/20 12 03/27/2012 Active TAKE 1 TABLET BY MOUTH EVERY DAY metformin 500 mg tablet RxNorm: 451055 1.5 Tablet(s) PO BID 012 04/09/2013 Inactive Lipitor 80 mg tablet RxNorm: 747041 1/2 Tablet(s) PO 03/28/201208/16 Inactive TAKE 1 TABLET BY MOUTH EVERY DAY Lipitor 80 mg tablet RxNorm: 950054 1/2 Tablet(s) PO daily 03/28/2003/27/2012 Active TAKE 1 TABLET BY MOUTH EVERY DAY Influenza Virus Vaccine 0.5 mL RxNorm: IM 03/26/2012 03/26/20 12 Inactive Pneumovax 23 25 mcg/0.5 mL Injection RxNorm: 2023819 Milliliter( s) Inj 03/26/2012 03/26/2012 Inactive metformin 500 mg tablet RxNorm: 852821 1 Tablet(s) PO BID 11/27/2011 03/27/2012 Inactive Plavix 75 mg tablet RxNorm: 793413 1 Tablet(s) PO daily 11/01/2011 Inactive note directions of one per day Lipitor 80 mg tablet RxNorm: 929254 Tablet(s) PO 10/18/2011 03/27/2012 Inactive TAKE 1 TABLET BY MOUTH EVERY DAY Protonix 40 mg Tab RxNorm: 050699 1 Tablet(s) PO BID 10/11/201112/19 Inactive Accu-Chek Active Test Strips RxNorm: 1 test Miscellaneous homer y 10/04/2011 08/16/2014 Inactive Carafate 1 gram Tab RxNorm: 301228 1 Tablet(s) PO QID 10/02/201110/08 Inactive Carafate 1 gram Tab RxNorm: 003113 1 Tablet(s) PO TID 09/29/201109/07 Inactive Carafate 1 gram Tab RxNorm: 304053 1 Tablet(s) PO TID 09/29/201109/07 Inactive Kenalog 40 mg/mL Susp for Injection RxNorm: 9810668 2 Milliliter (s) Inj 07/31/2011 07/31/2011 Inactive Synthroid 88 mcg tablet RxNorm: 256616 1 Tablet(s) PO daily 011 10/11/2011 Inactive Accu-Chek Active Test Strips RxNorm: 1 test Miscellaneous BID 06/05/2011 10/03/2011 Inactive Accu-Chek Multiclix Lancet RxNorm: 1 test Miscellaneous BID 09/24/2011 Inactive Accu-Chek Active Test strips RxNorm: 1 test Miscellaneous BID 06/02/2011 06/04/2011 Inactive Bactrim DS 800 mg-160 mg Tab RxNorm: 392722 1 Tablet(s) PO BID 05/0905/31/2011 Inactive metformin 500 mg Tab RxNorm: 274168 1 Tablet(s) PO TID 05/05/2011 Inactive Influenza Virus Vaccine 0.5 mL RxNorm: IM 05/02/2011 05/02/20 11 Inactive albuterol sulfate HFA 90 mcg/Actuation Aerosol Inhaler RxNor m: 872701 1 Puff(s) INH PRN prn shortness of breath 05/05/2011 Active Xarelto 20 mg tablet RxNorm: 8862350 1 Tablet(s) PO daily 09/20/2017 Active multivitamin chewable tablet RxNorm: 1 Tablet(s) PO daily 12/21/2015 Active Fish Oil 300 mg-1,000 mg capsule RxNorm: 091596 1 Capsule(s) PO occasional 12/21/2015 Active hyoscyamine 0.125 mg sublingual tablet RxNorm: 7632209 1 Tablet( s) SL Q6 11/01/2016 Active simvastatin 20 mg tablet RxNorm: 070227 1/2 Tablet(s) PO daily 12/0712/20/2015 Inactive Zantac 75 75 mg Tab RxNorm: 656250 2 Tablet(s) PO daily 12/21/2015 Inactive Protonix 40 mg Tab RxNorm: 548639 1 Tablet(s) PO daily 10/11/201109/2011 Inactive Fish Oil 1,000 mg capsule RxNorm: 3 Capsule(s) PO daily 12/21/2015 12/20/2015 Inactive amiodarone 400 mg tablet RxNorm: 529544 1 Tablet(s) PO daily 201712/09/2017 Inactive digoxin 125 mcg tablet RxNorm: 1357563 1 Tablet(s) PO daily 014 08/04/2013 Inactive Brilinta 90 mg Tab RxNorm: 6773832 1 Tablet(s) PO daily 10/11/2011 Inactive Fish Oil 1,000 mg Cap RxNorm: 3 Capsule(s) PO daily 12/21/2015 Inactive Flintstones Complete 18 mg iron chewable tablet RxNorm: 2 Tablet(s) PO daily 12/21/2015 12/20/2015 Inactive Niaspan Extended-Release 500 mg 24 hr Tab RxNorm: 8683051 1 Tabl et(s) PO daily 09/25/2011 09/24/2011 Inactive samples tramadol 50 mg tablet RxNorm: 875848 1 Tablet(s) PO TID 05/15/2017 Inactive aspirin 81 mg Cap, Delayed Release RxNorm: 715154 Capsule(s) PO daily 05/02/2012 05/01/2012 Inactive pantoprazole 40 mg tablet,delayed release RxNorm: 323823 1 Tabl et(s) PO daily 05/27/2018 05/26/2018 Inactive metformin 500 mg Tab RxNorm: 516650 1 Tablet(s) PO BID 05/05/2011 Inactive Singulair 10 mg tablet RxNorm: 151710 1 Tablet(s) PO daily 05/27/20 18 05/26/2018 Inactive Prilosec OTC 20 mg tablet,delayed release RxNorm: 550791 1 Tabl et(s) PO daily 11/01/2016 10/31/2016 Inactive Zantac 150 mg Tab RxNorm: 715746 1 Tablet(s) PO BID 10/11/20112011 Inactive Synthroid 88 mcg Tab RxNorm: 010029 1 Tablet(s) PO daily 06/06/2011 1 08/05/2010 Inactive Plavix 75 mg Tab RxNorm: 671316 1 Tablet(s) PO daily 11/01/201110/30 Inactive amiodarone 200 mg tablet RxNorm: 580984 1 Tablet(s) PO BID 01/22/20 18 01/20/2018 Inactive Cartia XT 120 mg capsule,extended release RxNorm: 762885 1 Capsule(s) PO daily and 1 QPM if HR above [address] Dr Aguilar manages 05/27/2018 05/26/2018 Inact pilar aspirin 81 mg Cap, Delayed Release RxNorm: 251894 1 Capsule(s) PO daily 10/04/2011 10/01/2011 Inactive Lipitor 80 mg Tab RxNorm: 576973 1 Tablet(s) PO daily 10/18/201110/07 Inactive Symbicort 160 mcg-4.5 mcg/Actuation HFA Aerosol Inhaler RxNorm: 8561035 1 INH 01/06/2015 01/05/2015 Inactive Medication Administered Medication Codes Instructions Start Date Status Kenalog 40 mg/mL suspension for injection RxNorm: 0066625 Millilite r 09/23/2018 No longer Active Kenalog 40 mg/mL suspension for injection RxNorm: 0253451 1.5Mil liliter 10/30/2017 No longer Active ketorolac 60 mg/2 mL intramuscular solution RxNorm: 151700 2Mil liliter 05/14/2017 No longer Active Kenalog 40 mg/mL suspension for injection RxNorm: 5720940 Millilite r 03/06/2017 No longer Active Kenalog 40 mg/mL suspension for injection RxNorm: 9693091 1.5Mil liliter 09/04/2016 No longer Active Kenalog 40 mg/mL suspension for injection RxNorm: 7971318 1Milli liter 11/11/2015 No longer Active Kenalog 40 mg/mL suspension for injection RxNorm: 3527089 1Milli liter 10/25/2015 No longer Active Kenalog 40 mg/mL suspension for injection RxNorm: 6680205 Millilite r 08/17/2014 No longer Active Kenalog 40 mg/mL suspension for injection RxNorm: 7175455 Millilite r 04/13/2014 No longer Active Kenalog 40 mg/mL Susp for Injection RxNorm: 3358375 1Milliliter No longer Active Influenza Virus Vaccine 0.5 mL RxNorm: 03/26/2012 No longer Active Pneumovax 23 25 mcg/0.5 mL Injection RxNorm: 6913070 Milliliter 0 03/26/2012 No longer Active Kenalog 40 mg/mL Susp for Injection RxNorm: 1128500 2Milliliter No longer Active Influenza Virus Vaccine [...] Result Date S ervice Location Comp Metabolic Otm515 NA 142 mEq/L 10/09/2022 Unkn own Comp Metabolic Ijy823 K 4.1 mEq/L 10/09/2022 Unkn own Comp Metabolic Wmr450 CL 104 mEq/L 10/09/2022 Unkn own Comp Metabolic Ghw031 CO2 28 mEq/L 10/09/2022 Unkn own Comp Metabolic Njc078 ANION GAP 14 10/09/2022 Unkn own Comp Metabolic Zdf446 GLUCOSE 154 mg/dL 10/09/2022 Unkn own Comp Metabolic Vla786 Creat 0.7 mg/dL 10/09/2022 Unkn own Comp Metabolic Nwm501 eGFR 82 ml/min/1.73m2 10/10/19 23 Unknown Comp Metabolic Itb714 BUN 15 mg/dL 10/09/2022 Unkn own Comp Metabolic App840 B/C Ratio 20.8 Ratio 10/09/2022 Unk nown Comp Metabolic Kfy325 CALCIUM 8.9 mg/dL 10/09/2022 Unkn own Comp Metabolic Fch224 ALK PHOS 62 U/L 10/09/2022 Unkn own Comp Metabolic Xde835 AST(SGOT) 22 U/L 10/09/2022 Unkn own Comp Metabolic Aba904 ALT(SGPT) 21 U/L 10/09/2022 Unkn own Comp Metabolic Ops487 BILI T 0.9 mg/dL 10/09/2022 Unkn own Comp Metabolic Cci284 ALBUMIN 4.0 g/dL 10/09/2022 Unkn own Comp Metabolic Aov970 TPRO 6.0 g/dL 10/09/2022 Unkn own Comp Metabolic Prn716 GLOB 2.0 g/dL 10/09/2022 Unkn own Comp Metabolic Eqe706 A/G Ratio 2.0 Ratio 10/09/2022 Unkn own Comp Metabolic Mhq722 Osmo 287 mOsmo 10/09/2022 Unkn own Free T4 Mou222 FREE T4 1.46 ng/dL 10/09/2022 Unknown Cbc [...] 10/10/19 23 Unknown Cbc With Differential Ord2 Cook% 12.0 % 10/10/19 23 Unknown Cbc With [...] K/ul 023 Unknown Cbc With Differential Ord2 Cook ABS# 0.5 K/ul 10/10/19 23 Unknown Cbc [...] IS) 3.37 uIU/mL 10/09/2022 Unkn own %Hba1C Sek907 % HbA1c 28314-5 9.0 % 10/09/2022 Unknown %Hba1C Iiy573 Gluc Ave 212 mg/dL 10/09/2022 Unknown %Hba1C Xod467 % HbA1c 11021-8 8.3 % 06/13/2022 Unknown %Hba1C Wix112 Gluc Ave 192 mg/dL 06/13/2022 Unknown Cbc [...] 06/13/20 22 Unknown Cbc With Differential Ord2 Cook% 13.3 % 06/13/20 22 Unknown Cbc With [...] K/ul 022 Unknown Cbc With Differential Ord2 Cook ABS# 0.6 K/ul 06/13/20 22 Unknown Cbc [...] C/HDL 4.2 Ratio 06/13/2022 Unknown Comp Metabolic Hsl707 NA 140 mEq/L 06/13/2022 Unkn own Comp Metabolic Psg736 K 4.3 mEq/L 06/13/2022 Unkn own Comp Metabolic Zer078 CL 102 mEq/L 06/13/2022 Unkn own Comp Metabolic Lbj840 CO2 30.0 mEq/L 06/13/2022 Unk nown Comp Metabolic Ajx959 ANION GAP 12 06/13/2022 Unkn own Comp Metabolic Wrd554 GLUCOSE 170 mg/dL 06/13/2022 Unkn own Comp Metabolic Sqj180 Creat 0.8 mg/dL 06/13/2022 Unkn own Comp Metabolic Gje146 eGFR 79 ml/min/1.73m2 06/13/20 22 Unknown Comp Metabolic Bhe720 BUN 15 mg/dL 06/13/2022 Unkn own Comp Metabolic Ggq921 B/C Ratio 20.0 Ratio 06/13/2022 Unk nown Comp Metabolic Yar397 CALCIUM 9.0 mg/dL 06/13/2022 Unkn own Comp Metabolic Pdb600 ALK PHOS 68 U/L 06/13/2022 Unkn own Comp Metabolic Zlq579 AST(SGOT) 24 U/L 06/13/2022 Unkn own Comp Metabolic Wgg467 ALT(SGPT) 19 U/L 06/13/2022 Unkn own Comp Metabolic Aqg817 BILI T 0.9 mg/dL 06/13/2022 Unkn own Comp Metabolic Bkn877 ALBUMIN 4.1 g/dL 06/13/2022 Unkn own Comp Metabolic Gkm088 TPRO 6.5 g/dL 06/13/2022 Unkn own Comp Metabolic Fhl172 GLOB 2.4 g/dL 06/13/2022 Unkn own Comp Metabolic Fpb898 A/G Ratio 1.7 Ratio 06/13/2022 Unkn own Comp Metabolic Iid661 Osmo 284 mOsmo 06/13/2022 Unkn own Tsh Ord6 TSH (3rd IS) 4.97 uIU/mL 06/13/2022 Unkn own Free T4 Rgq860 FREE T4 1.23 ng/dL 06/13/2022 Unknown Comp Metabolic Mwl858 NA 140 mEq/L 02/01/2022 Unkn own Comp Metabolic Ule295 K 4.3 mEq/L 02/01/2022 Unkn own Comp Metabolic Tzb110 CL 103 mEq/L 02/01/2022 Unkn own Comp Metabolic Jjq703 CO2 29.0 mEq/L 02/01/2022 Unk nown Comp Metabolic Zyz661 ANION GAP 12 02/01/2022 Unkn own Comp Metabolic Msv556 GLUCOSE 171 mg/dL 02/01/2022 Unkn own Comp Metabolic Gtg905 Creat 0.9 mg/dL 02/01/2022 Unkn own Comp Metabolic Nev369 eGFR 61 ml/min/1.73m2 02/02/20 22 Unknown Comp Metabolic Nnw646 BUN 15 mg/dL 02/01/2022 Unkn own Comp Metabolic Qdu728 B/C Ratio 16.0 Ratio 02/01/2022 Unk nown Comp Metabolic Yyk007 CALCIUM 9.2 mg/dL 02/01/2022 Unkn own Comp Metabolic Ijx004 ALK PHOS 68 U/L 02/01/2022 Unkn own Comp Metabolic Qli195 AST(SGOT) 22 U/L 02/01/2022 Unkn own Comp Metabolic Vbh840 ALT(SGPT) 25 U/L 02/01/2022 Unkn own Comp Metabolic Sva758 BILI T 1.0 mg/dL 02/01/2022 Unkn own Comp Metabolic Zxd448 ALBUMIN 4.1 g/dL 02/01/2022 Unkn own Comp Metabolic Grd285 TPRO 6.5 g/dL 02/01/2022 Unkn own Comp Metabolic Upa520 GLOB 2.4 g/dL 02/01/2022 Unkn own Comp Metabolic Bjk634 A/G Ratio 1.7 Ratio 02/01/2022 Unkn own Comp Metabolic Vhg810 Osmo 284 mOsmo 02/01/2022 Unkn own Tsh Ord6 TSH (3rd IS) 2.25 uIU/mL 02/01/2022 Unkn own Free T4 Tyt796 FREE T4 1.68 ng/dL 02/01/2022 Unknown Cbc [...] 02/02/20 22 Unknown Cbc With Differential Ord2 Cook% 10.9 % 02/02/20 22 Unknown Cbc With [...] K/ul 022 Unknown Cbc With Differential Ord2 Cook ABS# 0.6 K/ul 02/02/20 22 Unknown Cbc [...] Ord30 C/HDL 3.7 Ratio 02/01/2022 Unknown %Hba1C Lad697 % HbA1c 65201-6 8.2 % 02/01/2022 Unknown %Hba1C Jyr851 Gluc Ave 189 mg/dL 02/01/2022 Unknown MEAN GLUC 5992937 Calc Mean Gluc 140 mg/dL 03/28/2021 Unkn own A1C HPLC 5884966 Hgb A1c 92648-0 6.5 % 03/28/2021 Unknown FREE T4 7442129 T4 Free 1.06 ng/dL 03/25/2021 Unknown TSH 6721887 TSH 0.869 uIU/mL 03/25/2021 Unknow n LIPID GRP CHOLESTEROL 182 mg/dL 03/25/2021 Unknown LIPID GRP Triglyceride 75 mg/dL 03/25/2021 Unknow n LIPID GRP HDL CHOLESTEROL 50 mg/dL 03/25/2021 Unk nown LIPID GRP 0482931 Chol/HDL Ratio 3.64 ratio 03/25/2021 Unk nown LIPID GRP NON-HDL Chol 132 mg/dL 03/25/2021 Unknow n LIPID GRP 1349817 LDL Cholesterol 117 mg/dL 03/25/2021 Unk nown GFR CALC 6446578 GFR Non Afr Amr >60 mL/min 03/25/2021 Un known GFR CALC 3550856 GFR Afr Amr >60 mL/min 03/25/2021 Unknow n CBC 2550550 WBC 6.5 10e9/L 03/25/2021 Unknown CBC 3932196 RBC 4.96 10e12/L 03/25/2021 Unknow n CBC 4335635 HEMOGLOBIN 14.6 g/dL 03/25/2021 Unknown CBC 0874098 HEMATOCRIT 44.7 % 03/25/2021 Unknown CBC 8109622 MCV 90.1 fL 03/25/2021 Unknown CBC 7156494 MCH 29.4 pg 03/25/2021 Unknown CBC 2159865 MCHC 32.7 g/dL 03/25/2021 Unknown CBC 6430606 PLATELET COUNT 251 10e9/L 03/25/2021 Unk nown CBC 0784888 Mean Plt Volume 10.2 fL 03/25/2021 Unk nown CBC 6212146 Neut Auto 59.7 % 03/25/2021 Unknown CBC 5877570 Lymph Auto 21.0 % 03/25/2021 Unknown CBC 0742853 Cook Auto 8.8 % 03/25/2021 Unknown CBC 5128800 Eos Auto 9.3 % 03/25/2021 Unknown CBC 2948637 RDW 14.6 % 03/25/2021 Unknown CBC 5975883 Baso Auto 1.2 % 03/25/2021 Unknown CBC 2471486 Neutrophil Abs 3.88 10e9/L 03/25/2021 Un known CBC 5133576 Lymphocyte Abs 1.36 10e9/L 03/25/2021 Un known CBC 1820983 Monocyte Abs 0.57 10e9/L 03/25/2021 Unkn own CBC 8660071 Eosinophil Abs 0.60 10e9/L 03/25/2021 Un known CBC 0429809 RDW-SD 47.2 fL 03/25/2021 Unknown CBC 7736353 Basophil Abs 0.08 10e9/L 03/25/2021 Unkn own CHEM 14 0771527 AST 20 U/L 03/25/2021 Unknown CHEM 14 7100728 ALT 18 U/L 03/25/2021 Unknown CHEM 14 1763932 BUN 17 mg/dL 03/25/2021 Unknown CHEM 14 8465349 ALBUMIN 3.9 g/dL 03/25/2021 Unknown CHEM 14 1009064 CHLORIDE 104 mmol/L 03/25/2021 Unknown CHEM 14 1565793 Bili Total 0.8 mg/dL 03/25/2021 Unknown CHEM 14 7148616 ALK PHOS 69 U/L 03/25/2021 Unknown CHEM 14 8194033 SODIUM 138 mmol/L 03/25/2021 Unknown CHEM 14 4058174 CREATININE 0.76 mg/dL 03/25/2021 Unknown CHEM 14 8610314 CALCIUM 9.5 mg/dL 03/25/2021 Unknown CHEM 14 5551480 POTASSIUM 4.2 mmol/L 03/25/2021 Unknown CHEM 14 4775018 TOTAL PROTEIN 7.0 g/dL 03/25/2021 Unkno wn CHEM 14 2094710 GLUCOSE 133 mg/dL 03/25/2021 Unknown CHEM 14 8576634 Bicarbonate 26 mmol/L 03/25/2021 Unknown CHEM 14 8083407 AGAP 8 mmol/L 03/25/2021 Unknown FREE T4 1731569 T4 Free 1.15 ng/dL 11/19/2020 Unknown A1C HPLC 9877612 Hgb A1c 93918-3 7.0 % 11/19/2020 Unknown LIPID GRP CHOLESTEROL 205 mg/dL 11/19/2020 Unknown LIPID GRP Triglyceride 100 mg/dL 11/19/2020 Unknow n LIPID GRP HDL CHOLESTEROL 54 mg/dL 11/19/2020 Unk nown LIPID GRP Chol/HDL Ratio 3.80 ratio 11/19/2020 Unk nown LIPID GRP NON-HDL Chol 151 mg/dL 11/19/2020 Unknow n LIPID GRP LDL Cholesterol 131 mg/dL 11/19/2020 Unk nown MEAN GLUC 0352591 Calc Mean Gluc 154 mg/dL 11/19/2020 Unkn own GFR CALC 5070605 GFR Non Afr Amr >60 mL/min 11/19/2020 Un known GFR CALC 8297095 GFR Afr Amr >60 mL/min 11/19/2020 Unknow n TSH 0366799 TSH 0.638 uIU/mL 11/19/2020 Unknow n CHEM 14 4039287 AST 22 U/L 11/19/2020 Unknown CHEM 14 8666904 ALT 20 U/L 11/19/2020 Unknown CHEM 14 6119053 BUN 18 mg/dL 11/19/2020 Unknown CHEM 14 3803607 ALBUMIN 4.1 g/dL 11/19/2020 Unknown CHEM 14 4814638 CHLORIDE 104 mmol/L 11/19/2020 Unknown CHEM 14 4968735 Bili Total 0.9 mg/dL 11/19/2020 Unknown CHEM 14 7282232 ALK PHOS 72 U/L 11/19/2020 Unknown CHEM 14 8067101 SODIUM 141 mmol/L 11/19/2020 Unknown CHEM 14 0508552 CREATININE 0.80 mg/dL 11/19/2020 Unknown CHEM 14 6272942 CALCIUM 9.6 mg/dL 11/19/2020 Unknown CHEM 14 0678265 POTASSIUM 4.4 mmol/L 11/19/2020 Unknown CHEM 14 8948820 TOTAL PROTEIN 7.2 g/dL 11/19/2020 Unkno wn CHEM 14 9000237 GLUCOSE 134 mg/dL 11/19/2020 Unknown CHEM 14 3118936 Bicarbonate 31 mmol/L 11/19/2020 Unknown CHEM 14 0792749 AGAP 6 mmol/L 11/19/2020 Unknown LIPID GRP 5211854 CHOLESTEROL 199 mg/dL 03/29/2020 Unknown LIPID GRP 8781577 Triglyceride 95 mg/dL 03/29/2020 Unknow n LIPID GRP HDL CHOLESTEROL 48 mg/dL 03/29/2020 Unk nown LIPID GRP 5028709 Chol/HDL Ratio 4.15 ratio 03/29/2020 Unk nown LIPID GRP NON-HDL Chol 151 mg/dL 03/29/2020 Unknow n LIPID GRP LDL Cholesterol 132 mg/dL 03/29/2020 Unk nown CBC 2661623 WBC 5.1 10e9/L 03/29/2020 Unknown CBC 6422954 RBC 5.11 10e12/L 03/29/2020 Unknow n CBC 3620385 HEMOGLOBIN 14.4 g/dL 03/29/2020 Unknown CBC 5605086 HEMATOCRIT 44.9 % 03/29/2020 Unknown CBC 9867852 MCV 87.9 fL 03/29/2020 Unknown CBC 8309554 MCH 28.2 pg 03/29/2020 Unknown CBC 0016933 MCHC 32.1 g/dL 03/29/2020 Unknown CBC 4590330 PLATELET COUNT 239 10e9/L 03/29/2020 Unk nown CBC 2797591 Mean Plt Volume 10.2 fL 03/29/2020 Unk nown CBC 4895142 Neut Auto 51.8 % 03/29/2020 Unknown CBC 6296515 Lymph Auto 24.1 % 03/29/2020 Unknown CBC 9273637 Cook Auto 12.9 % 03/29/2020 Unknown CBC 1315153 RDW 15.0 % 03/29/2020 Unknown CBC 3102144 Eos Auto 9.0 % 03/29/2020 Unknown CBC 4460664 Baso Auto 2.2 % 03/29/2020 Unknown CBC 0783744 Neutrophil Abs 2.64 10e9/L 03/29/2020 Un known CBC 6131105 Lymphocyte Abs 1.23 10e9/L 03/29/2020 Un known CBC 8511294 Monocyte Abs 0.66 10e9/L 03/29/2020 Unkn own CBC 2899558 Eosinophil Abs 0.46 10e9/L 03/29/2020 Un known CBC 6818387 RDW-SD 47.8 fL 03/29/2020 Unknown CBC 6103999 Basophil Abs 0.11 10e9/L 03/29/2020 Unkn own CHEM 14 1568683 AST 21 U/L 03/29/2020 Unknown CHEM 14 5568772 ALT 18 U/L 03/29/2020 Unknown CHEM 14 7408055 BUN 20 mg/dL 03/29/2020 Unknown CHEM 14 4894731 ALBUMIN 3.9 g/dL 03/29/2020 Unknown CHEM 14 5064620 CHLORIDE 103 mmol/L 03/29/2020 Unknown CHEM 14 0549999 Bili Total 0.6 mg/dL 03/29/2020 Unknown CHEM 14 0387306 ALK PHOS 76 U/L 03/29/2020 Unknown CHEM 14 0578045 SODIUM 141 mmol/L 03/29/2020 Unknown CHEM 14 0225153 CREATININE 0.91 mg/dL 03/29/2020 Unknown CHEM 14 1037239 CALCIUM 8.9 mg/dL 03/29/2020 Unknown CHEM 14 6944974 POTASSIUM 4.1 mmol/L 03/29/2020 Unknown CHEM 14 7397837 TOTAL PROTEIN 6.8 g/dL 03/29/2020 Unkno wn CHEM 14 1321279 GLUCOSE 137 mg/dL 03/29/2020 Unknown CHEM 14 8350120 Bicarbonate 28 mmol/L 03/29/2020 Unknown CHEM 14 0962468 AGAP 10 mmol/L 03/29/2020 Unknown A1C HPLC 4083590 Hgb A1c 19105-0 7.1 % 03/29/2020 Unknown GFR CALC 9431154 GFR Non Afr Amr 60 mL/min 03/29/2020 Unk nown GFR CALC 7171017 GFR Afr Amr >60 mL/min 03/29/2020 Unknow n MEAN GLUC 2827295 Calc Mean Gluc 157 mg/dL 03/29/2020 Unkn own GFR CALC 4348224 GFR Non Afr Amr >60 mL/min 11/27/2019 Un known GFR CALC 7754918 GFR Afr Amr >60 mL/min 11/27/2019 Unknow n CHEM 14 5300845 AST 14 U/L 11/27/2019 Unknown CHEM 14 4558752 ALT 12 U/L 11/27/2019 Unknown CHEM 14 6541286 BUN 17 mg/dL 11/27/2019 Unknown CHEM 14 2489021 ALBUMIN 4.0 g/dL 11/27/2019 Unknown CHEM 14 5933256 CHLORIDE 104 mmol/L 11/27/2019 Unknown CHEM 14 8791327 Bili Total 0.7 mg/dL 11/27/2019 Unknown CHEM 14 7169897 ALK PHOS 72 U/L 11/27/2019 Unknown CHEM 14 8927462 SODIUM 141 mmol/L 11/27/2019 Unknown CHEM 14 3805280 CREATININE 0.71 mg/dL 11/27/2019 Unknown CHEM 14 7053546 CALCIUM 9.1 mg/dL 11/27/2019 Unknown CHEM 14 6981270 POTASSIUM 3.9 mmol/L 11/27/2019 Unknown CHEM 14 2153558 TOTAL PROTEIN 6.7 g/dL 11/27/2019 Unkno wn CHEM 14 3313021 GLUCOSE 125 mg/dL 11/27/2019 Unknown CHEM 14 2803400 Bicarbonate 28 mmol/L 11/27/2019 Unknown CHEM 14 8967044 AGAP 9 mmol/L 11/27/2019 Unknown MEAN GLUC 5111149 Calc Mean Gluc 154 mg/dL 11/27/2019 Unkn own A1C HPLC 5373795 Hgb A1c 30480-6 7.0 % 11/27/2019 Unknown FREE T4 3203073 T4 Free 1.16 ng/dL 09/02/2019 Unknown CHEM 14 3036404 AST 13 U/L 09/02/2019 Unknown CHEM 14 8250756 ALT 11 U/L 09/02/2019 Unknown CHEM 14 7600427 BUN 17 mg/dL 09/02/2019 Unknown CHEM 14 5515858 ALBUMIN 4.0 g/dL 09/02/2019 Unknown CHEM 14 8258915 CHLORIDE 103 mmol/L 09/02/2019 Unknown CHEM 14 3505612 Bili Total 0.8 mg/dL 09/02/2019 Unknown CHEM 14 6353904 ALK PHOS 72 U/L 09/02/2019 Unknown CHEM 14 4979510 SODIUM 141 mmol/L 09/02/2019 Unknown CHEM 14 8381831 CREATININE 0.67 mg/dL 09/02/2019 Unknown CHEM 14 0154492 CALCIUM 9.4 mg/dL 09/02/2019 Unknown CHEM 14 0465018 POTASSIUM 3.9 mmol/L 09/02/2019 Unknown CHEM 14 8197476 TOTAL PROTEIN 6.6 g/dL 09/02/2019 Unkno wn CHEM 14 0279100 GLUCOSE 139 mg/dL 09/02/2019 Unknown CHEM 14 4404378 Bicarbonate 29 mmol/L 09/02/2019 Unknown CHEM 14 2755241 AGAP 9 mmol/L 09/02/2019 Unknown TSH 5242958 TSH 2.111 uIU/mL 09/02/2019 Unknow n A1C HPLC 1345039 Hgb A1c 10711-4 8.1 % 09/02/2019 Unknown LIPID GRP 4858456 CHOLESTEROL 194 mg/dL 09/02/2019 Unknown LIPID GRP 8464372 Triglyceride 96 mg/dL 09/02/2019 Unknow n LIPID GRP HDL CHOLESTEROL 54 mg/dL 09/02/2019 Unk nown LIPID GRP 0038174 Chol/HDL Ratio 3.59 ratio 09/02/2019 Unk nown LIPID GRP NON-HDL Chol 140 mg/dL 09/02/2019 Unknow n LIPID GRP LDL Cholesterol 121 mg/dL 09/02/2019 Unk nown CBC 4261372 WBC 6.2 10e9/L 09/02/2019 Unknown CBC 8830388 RBC 4.93 10e12/L 09/02/2019 Unknow n CBC 3126371 HEMOGLOBIN 14.0 g/dL 09/02/2019 Unknown CBC 7227371 HEMATOCRIT 44.5 % 09/02/2019 Unknown CBC 6438712 MCV 90.3 fL 09/02/2019 Unknown CBC 9755522 MCH 28.4 pg 09/02/2019 Unknown CBC 8908238 MCHC 31.5 g/dL 09/02/2019 Unknown CBC 4629516 PLATELET COUNT 264 10e9/L 09/02/2019 Unk nown CBC 8243353 Mean Plt Volume 10.7 fL 09/02/2019 Unk nown CBC 9571569 Neut Auto 55.6 % 09/02/2019 Unknown CBC 3621684 Lymph Auto 25.7 % 09/02/2019 Unknown CBC 2634891 Cook Auto 9.2 % 09/02/2019 Unknown CBC 9426382 RDW 15.0 % 09/02/2019 Unknown CBC 7723815 Eos Auto 8.5 % 09/02/2019 Unknown CBC 7137934 Baso Auto 1.0 % 09/02/2019 Unknown CBC 7129512 Neutrophil Abs 3.45 10e9/L 09/02/2019 Un known CBC 8020042 Lymphocyte Abs 1.59 10e9/L 09/02/2019 Un known CBC 7443075 Monocyte Abs 0.57 10e9/L 09/02/2019 Unkn own CBC 8628549 Eosinophil Abs 0.53 10e9/L 09/02/2019 Un known CBC 2852705 RDW-SD 48.9 fL 09/02/2019 Unknown CBC 4483698 Basophil Abs 0.06 10e9/L 09/02/2019 Unkn own CHEM 14 8586460 AST 15 U/L 04/30/2019 Unknown CHEM 14 2124454 ALT 13 U/L 04/30/2019 Unknown CHEM 14 0937446 BUN 16 mg/dL 04/30/2019 Unknown CHEM 14 9599888 ALBUMIN 4.1 g/dL 04/30/2019 Unknown CHEM 14 6398277 CHLORIDE 102 mmol/L 04/30/2019 Unknown CHEM 14 7787896 Bili Total 0.7 mg/dL 04/30/2019 Unknown CHEM 14 7520189 ALK PHOS 71 U/L 04/30/2019 Unknown CHEM 14 1107485 SODIUM 140 mmol/L 04/30/2019 Unknown CHEM 14 1800316 CREATININE 0.75 mg/dL 04/30/2019 Unknown CHEM 14 4335590 CALCIUM 9.2 mg/dL 04/30/2019 Unknown CHEM 14 7155699 POTASSIUM 3.9 mmol/L 04/30/2019 Unknown CHEM 14 9761761 TOTAL PROTEIN 6.6 g/dL 04/30/2019 Unkno wn CHEM 14 4298791 GLUCOSE 160 mg/dL 04/30/2019 Unknown CHEM 14 9482293 Bicarbonate 31 mmol/L 04/30/2019 Unknown CHEM 14 5010218 AGAP 7 mmol/L 04/30/2019 Unknown A1C HPLC 8026769 Hgb A1c 21969-7 7.9 % 04/30/2019 Unknown TSH 1650395 TSH 1.728 uIU/mL 04/30/2019 Unknow n MEAN GLUC 3413486 Calc Mean Gluc 180 mg/dL 04/30/2019 Unkn own GFR CALC 2157477 GFR Non Afr Amr >60 mL/min 04/30/2019 Un known GFR CALC 3203531 GFR Afr Amr >60 mL/min 04/30/2019 Unknow n FREE T4 8902426 T4 Free 1.00 ng/dL 04/30/2019 Unknown MEAN GLUC 1079350 Calc Mean Gluc 206 mg/dL 01/13/2019 Unkn own GFR CALC 0076039 GFR Non Afr Amr >60 mL/min 01/13/2019 Un known GFR CALC 2512145 GFR Afr Amr >60 mL/min 01/13/2019 Unknow n LIPID GRP 4034618 CHOLESTEROL 184 mg/dL 01/13/2019 Unknown LIPID GRP 3758930 Triglyceride 84 mg/dL 01/13/2019 Unknow n LIPID GRP HDL CHOLESTEROL 51 mg/dL 01/13/2019 Unk nown LIPID GRP Chol/HDL Ratio 3.61 ratio 01/13/2019 Unk nown LIPID GRP 1755137 NON-HDL Chol 133 mg/dL 01/13/2019 Unknow n LIPID GRP 1261276 LDL Cholesterol 116 mg/dL 01/13/2019 Unk nown FREE T4 8426378 T4 Free 1.15 ng/dL 01/13/2019 Unknown CHEM 14 9873859 AST 13 U/L 01/13/2019 Unknown CHEM 14 0479631 ALT 12 U/L 01/13/2019 Unknown CHEM 14 8859066 BUN 19 mg/dL 01/13/2019 Unknown CHEM 14 1356389 ALBUMIN 4.0 g/dL 01/13/2019 Unknown CHEM 14 2110901 CHLORIDE 104 mmol/L 01/13/2019 Unknown CHEM 14 9014441 Bili Total 0.5 mg/dL 01/13/2019 Unknown CHEM 14 9983036 ALK PHOS 73 U/L 01/13/2019 Unknown CHEM 14 3739341 SODIUM 139 mmol/L 01/13/2019 Unknown CHEM 14 7245440 CREATININE 0.68 mg/dL 01/13/2019 Unknown CHEM 14 1268588 CALCIUM 9.4 mg/dL 01/13/2019 Unknown CHEM 14 8086325 POTASSIUM 4.1 mmol/L 01/13/2019 Unknown CHEM 14 8036163 TOTAL PROTEIN 6.4 g/dL 01/13/2019 Unkno wn CHEM 14 7744726 GLUCOSE 194 mg/dL 01/13/2019 Unknown CHEM 14 8087150 Bicarbonate 31 mmol/L 01/13/2019 Unknown CHEM 14 7645917 AGAP 4 mmol/L 01/13/2019 Unknown CBC 1567112 WBC 6.4 10e9/L 01/13/2019 Unknown CBC 1751429 RBC 4.85 10e12/L 01/13/2019 Unknow n CBC 5813335 HEMOGLOBIN 13.8 g/dL 01/13/2019 Unknown CBC 0925023 HEMATOCRIT 43.5 % 01/13/2019 Unknown CBC 2880525 MCV 89.7 fL 01/13/2019 Unknown CBC 7673222 MCH 28.5 pg 01/13/2019 Unknown CBC 4253744 MCHC 31.7 g/dL 01/13/2019 Unknown CBC 1582971 PLATELET COUNT 283 10e9/L 01/13/2019 Unk nown CBC 3936398 Mean Plt Volume 10.6 fL 01/13/2019 Unk nown CBC 4399568 Neut Auto 56.2 % 01/13/2019 Unknown CBC 7596559 Lymph Auto 21.7 % 01/13/2019 Unknown CBC 9120699 Cook Auto 10.0 % 01/13/2019 Unknown CBC 9367560 Eos Auto 11.3 % 01/13/2019 Unknown CBC 1840925 RDW 14.9 % 01/13/2019 Unknown CBC 3063834 Baso Auto 0.8 % 01/13/2019 Unknown CBC 6527677 Neutrophil Abs 3.60 10e9/L 01/13/2019 Un known CBC 2998267 Lymphocyte Abs 1.39 10e9/L 01/13/2019 Un known CBC 3316468 Monocyte Abs 0.64 10e9/L 01/13/2019 Unkn own CBC 5273376 Eosinophil Abs 0.72 10e9/L 01/13/2019 Un known CBC 4198139 Basophil Abs 0.05 10e9/L 01/13/2019 Unkn own CBC 8503976 RDW-SD 47.9 fL 01/13/2019 Unknown A1C HPLC 0211786 Hgb A1c 11310-4 8.8 % 01/13/2019 Unknown TSH 4701557 TSH 0.966 uIU/mL 01/13/2019 Unknow n A1C HPLC 4098819 Hgb A1c 61082-5 7.9 % 09/11/2018 Unknown CBC 9316146 WBC 5.6 10e9/L 09/11/2018 Unknown CBC 3900165 RBC 5.07 10e12/L 09/11/2018 Unknow n CBC 4252330 HEMOGLOBIN 13.7 g/dL 09/11/2018 Unknown CBC 3880199 HEMATOCRIT 43.9 % 09/11/2018 Unknown CBC 0413747 MCV 86.6 fL 09/11/2018 Unknown CBC 4046686 MCH 27.0 pg 09/11/2018 Unknown CBC 4326431 MCHC 31.2 g/dL 09/11/2018 Unknown CBC 4765858 PLATELET COUNT 282 10e9/L 09/11/2018 Unk nown CBC 6453183 Mean Plt Volume 10.3 fL 09/11/2018 Unk nown CBC 5013753 Neut Auto 46.8 % 09/11/2018 Unknown CBC 9756924 Lymph Auto 28.0 % 09/11/2018 Unknown CBC 8501321 Cook Auto 10.5 % 09/11/2018 Unknown CBC 5722863 RDW 15.9 % 09/11/2018 Unknown CBC 8658608 Eos Auto 12.9 % 09/11/2018 Unknown CBC 4034907 Baso Auto 1.8 % 09/11/2018 Unknown CBC 7869916 Neutrophil Abs 2.62 10e9/L 09/11/2018 Un known CBC 9812604 Lymphocyte Abs 1.57 10e9/L 09/11/2018 Un known CBC 8858433 Monocyte Abs 0.59 10e9/L 09/11/2018 Unkn own CBC 1505381 Eosinophil Abs 0.72 10e9/L 09/11/2018 Un known CBC 2025009 RDW-SD 49.6 fL 09/11/2018 Unknown CBC 8103792 Basophil Abs 0.10 10e9/L 09/11/2018 Unkn own CHEM 14 1020439 AST 17 U/L 09/11/2018 Unknown CHEM 14 3089185 ALT 14 U/L 09/11/2018 Unknown CHEM 14 0675916 BUN 20 mg/dL 09/11/2018 Unknown CHEM 14 4548667 ALBUMIN 3.8 g/dL 09/11/2018 Unknown CHEM 14 0653841 CHLORIDE 104 mmol/L 09/11/2018 Unknown CHEM 14 4413219 Bili Total 0.7 mg/dL 09/11/2018 Unknown CHEM 14 [id number] ALK PHOS 64 U/L 09/11/2018 Unknown CHEM 14 [id number] SODIUM 143 mmol/L 09/11/2018 Unknown CHEM 14 0442277 CREATININE 0.75 mg/dL 09/11/2018 Unknown CHEM 14 9841746 CALCIUM 9.3 mg/dL 09/11/2018 Unknown CHEM 14 [id number] POTASSIUM 4.3 mmol/L 09/11/2018 Unknown CHEM 14 2694105 TOTAL PROTEIN 6.5 g/dL 09/11/2018 Unkno wn CHEM 14 [id number] GLUCOSE 174 mg/dL 09/11/2018 Unknown CHEM 14 1857364 Bicarbonate 31 mmol/L 09/11/2018 Unknown CHEM 14 3724632 AGAP 8 mmol/L 09/11/2018 Unknown FREE T4 0988158 T4 Free 1.16 ng/dL 09/11/2018 Unknown MEAN GLUC 9953310 Calc Mean Gluc 180 mg/dL 09/11/2018 Unkn own TSH 5933830 TSH 1.080 uIU/mL 09/11/2018 Unknow n GFR CALC 8768915 GFR Non Afr Amr >60 mL/min 09/11/2018 Un known GFR CALC 5313285 GFR Afr Amr >60 mL/min 09/11/2018 Unknow n Free T4 Tbl678 FREE T4 1.66 ng/dL 05/09/2018 Unknown Tsh [...] 05/09/20 18 Unknown Cbc With Differential Ord2 Cook% 11.6 % 05/09/20 18 Unknown Cbc With [...] K/ul 018 Unknown Cbc With Differential Ord2 Cook ABS# 0.8 K/ul 05/09/20 18 Unknown Cbc [...] Ord15 CALCIUM 9.3 mg/dL 05/09/2018 Unknown %Hba1C Gtn091 % HbA1c 15252-1 8.9 % 05/09/2018 Unknown %Hba1C Ttq903 Gluc Ave 209 mg/dL 05/09/2018 Unknown LIPID GRP 8212104 CHOLESTEROL 184 mg/dL 01/14/2018 Unknown LIPID GRP Triglyceride 65 mg/dL 01/14/2018 Unknow n LIPID GRP 0245171 HDL CHOLESTEROL 53 mg/dL 01/14/2018 Unk nown LIPID GRP 1053736 Chol/HDL Ratio 3.47 ratio 01/14/2018 Unk nown LIPID GRP NON-HDL Chol 131 mg/dL 01/14/2018 Unknow n LIPID GRP 7960070 LDL Cholesterol 118 mg/dL 01/14/2018 Unk nown A1C HPLC 5079341 Hgb A1c 15335-2 6.5 % 01/14/2018 Unknown CBC 9678709 WBC 5.8 10e9/L 01/14/2018 Unknown CBC 8370411 RBC 4.67 10e12/L 01/14/2018 Unknow n CBC 5663355 HEMOGLOBIN 12.4 g/dL 01/14/2018 Unknown CBC 7595065 HEMATOCRIT 40.6 % 01/14/2018 Unknown CBC 2179673 MCV 86.9 fL 01/14/2018 Unknown CBC 4938803 MCH 26.6 pg 01/14/2018 Unknown CBC 7920919 MCHC 30.5 g/dL 01/14/2018 Unknown CBC 8785562 PLATELET COUNT 419 10e9/L 01/14/2018 Unk nown CBC 5162030 Mean Plt Volume 10.1 fL 01/14/2018 Unk nown CBC 6887462 Neut Auto 60.7 % 01/14/2018 Unknown CBC 6756439 Lymph Auto 24.8 % 01/14/2018 Unknown CBC 7192593 Cook Auto 9.7 % 01/14/2018 Unknown CBC 1096650 RDW 25.0 % 01/14/2018 Unknown CBC 7284027 Eos Auto 3.4 % 01/14/2018 Unknown CBC 7065616 Baso Auto 1.4 % 01/14/2018 Unknown CBC 9460347 Neutrophil Abs 3.52 10e9/L 01/14/2018 Un known CBC 5848260 Lymphocyte Abs 1.44 10e9/L 01/14/2018 Un known CBC 2582053 Monocyte Abs 0.56 10e9/L 01/14/2018 Unkn own CBC 7852554 Eosinophil Abs 0.20 10e9/L 01/14/2018 Un known CBC 0017929 Basophil Abs 0.08 10e9/L 01/14/2018 Unkn own CBC 8934634 RDW-SD 75.4 fL 01/14/2018 Unknown MEAN GLUC 7631406 Calc Mean Gluc 140 mg/dL 01/14/2018 Unkn own Culture Urine [id number] URINE CULTURE SEE NOTES 01/03/2018 Unknown Culture Urine [id number] Continued Results 01/04/20 18 Unknown Urine Culture [...] 11/21/19 18 Unknown Cbc With Differential Ord2 Cook% 7.9 % 11/21/19 18 Unknown Cbc With [...] K/ul 018 Unknown Cbc With Differential Ord2 Cook ABS# 0.7 K/ul 11/21/19 18 Unknown Cbc With Differential Ord2 Eos ABS# 0.3 K/ul 11/21/19 18 Unknown Cbc With Differential Ord2 Baso ABS# 0.1 K/ul 11/21/19 18 Unknown Comp Metabolic Qyn515 NA 142 mEq/L 11/20/2017 Unkn own Comp Metabolic Mjf784 K 4.1 mEq/L 11/20/2017 Unkn own Comp Metabolic Bhq193 CL 104 mEq/L 11/20/2017 Unkn own Comp Metabolic Znl006 CO2 29.0 mEq/L 11/20/2017 Unk nown Comp Metabolic Rfo599 ANION GAP 13 11/20/2017 Unkn own Comp Metabolic Bxt550 GLUCOSE 178 mg/dL 11/20/2017 Unkn own Comp Metabolic Eyk938 Creat 0.6 mg/dL 11/20/2017 Unkn own Comp Metabolic Etw993 eGFR 112 ml/min/1.73m2 018 Unknown Comp Metabolic Jgz715 BUN 19 mg/dL 11/20/2017 Unkn own Comp Metabolic Tqr229 B/C Ratio 33.9 Ratio 11/20/2017 Unk nown Comp Metabolic Hph931 CALCIUM 9.3 mg/dL 11/20/2017 Unkn own Comp Metabolic Sma979 ALK PHOS 60 U/L 11/20/2017 Unkn own Comp Metabolic Fop473 AST(SGOT) 13 U/L 11/20/2017 Unkn own Comp Metabolic Enh580 ALT(SGPT) 14 U/L 11/20/2017 Unkn own Comp Metabolic Cuf548 BILI T 0.4 mg/dL 11/20/2017 Unkn own Comp Metabolic Bpi356 ALBUMIN 4.1 g/dL 11/20/2017 Unkn own Comp Metabolic Utu611 TPRO 6.0 g/dL 11/20/2017 Unkn own Comp Metabolic Jty630 GLOB 1.9 g/dL 11/20/2017 Unkn own Comp Metabolic Brn214 A/G Ratio 2.2 Ratio 11/20/2017 Unkn own Comp Metabolic Kef693 Osmo 290 mOsmo 11/20/2017 Unkn own Cbc [...] 11/14/19 18 Unknown Cbc With Differential Ord2 Cook% 7.8 % 11/14/19 18 Unknown Cbc With [...] K/ul 018 Unknown Cbc With Differential Ord2 Cook ABS# 0.8 K/ul 11/14/19 18 Unknown Cbc With Differential Ord2 Eos ABS# 0.3 K/ul 11/14/19 18 Unknown Cbc With Differential Ord2 Baso ABS# 0.1 K/ul 11/14/19 18 Unknown Comp Metabolic Cvt017 NA 142 mEq/L 11/13/2017 Unkn own Comp Metabolic Xzy029 K 4.2 mEq/L 11/13/2017 Unkn own Comp Metabolic Yza691 CL 104 mEq/L 11/13/2017 Unkn own Comp Metabolic Qmf561 CO2 26.0 mEq/L 11/13/2017 Unk nown Comp Metabolic Tly985 ANION GAP 16 11/13/2017 Unkn own Comp Metabolic Bar441 GLUCOSE 115 mg/dL 11/13/2017 Unkn own Comp Metabolic Awm881 Creat 0.6 mg/dL 11/13/2017 Unkn own Comp Metabolic Wqd888 eGFR 114 ml/min/1.73m2 018 Unknown Comp Metabolic Wtb570 BUN 15 mg/dL 11/13/2017 Unkn own Comp Metabolic Dga290 B/C Ratio 27.3 Ratio 11/13/2017 Unk nown Comp Metabolic Ted216 CALCIUM 9.2 mg/dL 11/13/2017 Unkn own Comp Metabolic Yvo692 ALK PHOS 59 U/L 11/13/2017 Unkn own Comp Metabolic Yzz939 AST(SGOT) 12 U/L 11/13/2017 Unkn own Comp Metabolic Fsv385 ALT(SGPT) 13 U/L 11/13/2017 Unkn own Comp Metabolic Kjw095 BILI T 0.5 mg/dL 11/13/2017 Unkn own Comp Metabolic Udz306 ALBUMIN 4.0 g/dL 11/13/2017 Unkn own Comp Metabolic Bbj611 TPRO 6.0 g/dL 11/13/2017 Unkn own Comp Metabolic Jdw447 GLOB 2.0 g/dL 11/13/2017 Unkn own Comp Metabolic Vec757 A/G Ratio 2.0 Ratio 11/13/2017 Unkn own Comp Metabolic Mng134 Osmo 285 mOsmo 11/13/2017 Unkn own Cbc [...] 09/21/19 18 Unknown Cbc With Differential Ord2 Cook% 9.9 % 09/21/19 18 Unknown Cbc With [...] K/ul 018 Unknown Cbc With Differential Ord2 Cook ABS# 0.9 K/ul 09/21/19 18 Unknown Cbc With Differential Ord2 Eos ABS# 0.4 K/ul 09/21/19 18 Unknown Cbc With Differential Ord2 Baso ABS# 0.1 K/ul 09/21/19 18 Unknown Comp Metabolic Sgc253 NA 138 mEq/L 09/20/2017 Unkn own Comp Metabolic Mim085 K 4.0 mEq/L 09/20/2017 Unkn own Comp Metabolic Uda114 CL 99 mEq/L 09/20/2017 Unkn own Comp Metabolic Jll212 CO2 26.0 mEq/L 09/20/2017 Unk nown Comp Metabolic Pzu213 ANION GAP 17 09/20/2017 Unkn own Comp Metabolic Bxp737 GLUCOSE 275 mg/dL 09/20/2017 Unkn own Comp Metabolic Ljm719 Creat 0.6 mg/dL 09/20/2017 Unkn own Comp Metabolic Xfg642 eGFR 96 ml/min/1.73m2 09/21/19 18 Unknown Comp Metabolic Sqx055 BUN 17 mg/dL 09/20/2017 Unkn own Comp Metabolic Cyo095 B/C Ratio 26.6 Ratio 09/20/2017 Unk nown Comp Metabolic Trw274 CALCIUM 9.5 mg/dL 09/20/2017 Unkn own Comp Metabolic Bsq356 ALK PHOS 57 U/L 09/20/2017 Unkn own Comp Metabolic Flm424 AST(SGOT) 13 U/L 09/20/2017 Unkn own Comp Metabolic Szt259 ALT(SGPT) 13 U/L 09/20/2017 Unkn own Comp Metabolic Rfl299 BILI T 0.5 mg/dL 09/20/2017 Unkn own Comp Metabolic Zji615 ALBUMIN 4.1 g/dL 09/20/2017 Unkn own Comp Metabolic Kir790 TPRO 5.9 g/dL 09/20/2017 Unkn own Comp Metabolic Nze840 GLOB 1.8 g/dL 09/20/2017 Unkn own Comp Metabolic Ghp456 A/G Ratio 2.3 Ratio 09/20/2017 Unkn own Comp Metabolic Ogm881 Osmo 287 mOsmo 09/20/2017 Unkn own %Hba1C Ubq306 % HbA1c 61507-8 7.2 % 09/20/2017 Unknown %Hba1C Zpk751 Gluc Ave 160 mg/dL 09/20/2017 Unknown MEAN GLUC 2474495 Calc Mean Gluc 169 mg/dL 02/28/2017 Unkn own CBC 0319686 WBC 7.6 10e9/L 02/28/2017 Unknown CBC 1161098 RBC 4.91 10e12/L 02/28/2017 Unknow n CBC 0006925 HEMOGLOBIN 13.2 g/dL 02/28/2017 Unknown CBC 1821529 HEMATOCRIT 42.7 % 02/28/2017 Unknown CBC 1215439 MCV 87.0 fL 02/28/2017 Unknown CBC 1199012 MCH 26.9 pg 02/28/2017 Unknown CBC 1630085 MCHC 30.9 g/dL 02/28/2017 Unknown CBC 2837151 PLATELET COUNT 341 10e9/L 02/28/2017 Unk nown CBC 0104182 Mean Plt Volume 10.7 fL 02/28/2017 Unk nown CBC 7108374 Neut Auto 62.1 % 02/28/2017 Unknown CBC 1910796 Lymph Auto 20.2 % 02/28/2017 Unknown CBC 6076720 Cook Auto 9.3 % 02/28/2017 Unknown CBC 1801050 RDW 15.8 % 02/28/2017 Unknown CBC 6424292 Eos Auto 7.1 % 02/28/2017 Unknown CBC 0435805 Baso Auto 1.3 % 02/28/2017 Unknown CBC 3682872 Neutrophil Abs 4.72 10e9/L 02/28/2017 Un known CBC 1608391 Lymphocyte Abs 1.54 10e9/L 02/28/2017 Un known CBC 6903728 Monocyte Abs 0.71 10e9/L 02/28/2017 Unkn own CBC 4121599 Eosinophil Abs 0.54 10e9/L 02/28/2017 Un known CBC 3509184 Basophil Abs 0.10 10e9/L 02/28/2017 Unkn own CBC 3003965 RDW-SD 49.0 fL 02/28/2017 Unknown LIPID GRP 8904883 CHOLESTEROL 189 mg/dL 02/28/2017 Unknown LIPID GRP 3888155 Triglyceride 124 mg/dL 02/28/2017 Unknow n LIPID GRP 1030879 HDL CHOLESTEROL 43 mg/dL 02/28/2017 Unk nown LIPID GRP 7006711 Chol/HDL Ratio 4.40 ratio 02/28/2017 Unk nown LIPID GRP 7723048 NON-HDL Chol 146 mg/dL 02/28/2017 Unknow n LIPID GRP 3253429 LDL Cholesterol 121 mg/dL 02/28/2017 Unk nown A1C HPLC 5496993 Hgb A1c 56548-9 7.5 % 02/28/2017 Unknown GFR CALC 0690740 GFR Non Afr Amr >60 mL/min 02/28/2017 Un known GFR CALC 3812076 GFR Afr Amr >60 mL/min 02/28/2017 Unknow n CHEM 14 0347431 AST 15 U/L 02/28/2017 Unknown CHEM 14 3077886 ALT 16 U/L 02/28/2017 Unknown CHEM 14 2959271 BUN 18 mg/dL 02/28/2017 Unknown CHEM 14 0051346 ALBUMIN 4.0 g/dL 02/28/2017 Unknown CHEM 14 3874117 CHLORIDE 104 mmol/L 02/28/2017 Unknown CHEM 14 9466725 Bili Total 0.6 mg/dL 02/28/2017 Unknown CHEM 14 0537576 ALK PHOS 53 U/L 02/28/2017 Unknown CHEM 14 5623619 SODIUM 143 mmol/L 02/28/2017 Unknown CHEM 14 7156232 CREATININE 0.66 mg/dL 02/28/2017 Unknown CHEM 14 8105814 CALCIUM 9.2 mg/dL 02/28/2017 Unknown CHEM 14 1023027 POTASSIUM 3.9 mmol/L 02/28/2017 Unknown CHEM 14 5056685 TOTAL PROTEIN 6.6 g/dL 02/28/2017 Unkno wn CHEM 14 8861554 GLUCOSE 146 mg/dL 02/28/2017 Unknown CHEM 14 6666279 Bicarbonate 30 mmol/L 02/28/2017 Unknown CHEM 14 0038948 AGAP 9 mmol/L 02/28/2017 Unknown CBC 3250488 WBC 6.8 10e9/L 08/21/2016 Unknown CBC 5964811 RBC 4.87 10e12/L 08/21/2016 Unknow n CBC 7322839 HEMOGLOBIN 12.7 g/dL 08/21/2016 Unknown CBC 8942505 HEMATOCRIT 40.5 % 08/21/2016 Unknown CBC 5364930 MCV 83.2 fL 08/21/2016 Unknown CBC 4541086 MCH 26.1 pg 08/21/2016 Unknown CBC 3527787 MCHC 31.4 g/dL 08/21/2016 Unknown CBC 6543996 PLATELET COUNT 334 10e9/L 08/21/2016 Unk nown CBC 3058595 Mean Plt Volume 10.5 fL 08/21/2016 Unk nown CBC 0194178 Neut Auto 56.4 % 08/21/2016 Unknown CBC 9892141 Lymph Auto 23.5 % 08/21/2016 Unknown CBC 1845386 Cook Auto 9.7 % 08/21/2016 Unknown CBC 4861353 RDW 16.6 % 08/21/2016 Unknown CBC 8322581 Eos Auto 9.5 % 08/21/2016 Unknown CBC 6862484 Baso Auto 0.9 % 08/21/2016 Unknown CBC 7846710 Neutrophil Abs 3.84 10e9/L 08/21/2016 Un known CBC 0964839 Lymphocyte Abs 1.60 10e9/L 08/21/2016 Un known CBC 1385393 Monocyte Abs 0.66 10e9/L 08/21/2016 Unkn own CBC 6956117 Eosinophil Abs 0.65 10e9/L 08/21/2016 Un known CBC 2746345 RDW-SD 49.7 fL 08/21/2016 Unknown CBC 8943670 Basophil Abs 0.06 10e9/L 08/21/2016 Unkn own FREE T4 3094242 T4 Free 1.39 ng/dL 08/21/2016 Unknown LIPID GRP 7632574 CHOLESTEROL 211 mg/dL 08/21/2016 Unknown LIPID GRP 8929346 Triglyceride 105 mg/dL 08/21/2016 Unknow n LIPID GRP 9037676 HDL CHOLESTEROL 45 mg/dL 08/21/2016 Unk nown LIPID GRP 5952519 Chol/HDL Ratio 4.69 ratio 08/21/2016 Unk nown LIPID GRP 5605070 NON-HDL Chol 166 mg/dL 08/21/2016 Unknow n LIPID GRP 2859733 LDL Cholesterol 145 mg/dL 08/21/2016 Unk nown A1C HPLC 5954410 Hgb A1c 89885-9 7.4 % 08/21/2016 Unknown GFR CALC 1226807 GFR Non Afr Amr >60 mL/min 08/21/2016 Un known GFR CALC 3852989 GFR Afr Amr >60 mL/min 08/21/2016 Unknow n CHEM 14 1194319 AST 16 U/L 08/21/2016 Unknown CHEM 14 6116601 ALT 14 U/L 08/21/2016 Unknown CHEM 14 7928673 BUN 14 mg/dL 08/21/2016 Unknown CHEM 14 6689716 ALBUMIN 4.1 g/dL 08/21/2016 Unknown CHEM 14 4748202 CHLORIDE 105 mmol/L 08/21/2016 Unknown CHEM 14 8815558 Bili Total 0.5 mg/dL 08/21/2016 Unknown CHEM 14 8459197 ALK PHOS 53 U/L 08/21/2016 Unknown CHEM 14 8833549 SODIUM 141 mmol/L 08/21/2016 Unknown CHEM 14 9533574 CREATININE 0.66 mg/dL 08/21/2016 Unknown CHEM 14 3107806 CALCIUM 9.3 mg/dL 08/21/2016 Unknown CHEM 14 4269801 POTASSIUM 4.0 mmol/L 08/21/2016 Unknown CHEM 14 9694451 TOTAL PROTEIN 6.6 g/dL 08/21/2016 Unkno wn CHEM 14 2875751 GLUCOSE 145 mg/dL 08/21/2016 Unknown CHEM 14 3022383 Bicarbonate 29 mmol/L 08/21/2016 Unknown CHEM 14 8390982 AGAP 7 mmol/L 08/21/2016 Unknown TSH 8991620 TSH 1.485 uIU/mL 08/21/2016 Unknow n MEAN GLUC 8269827 Calc Mean Gluc 166 mg/dL 08/21/2016 Unkn [...] 04/24/20 16 Unknown Cbc With Differential Ord2 Cook% 10.9 % 04/24/20 16 Unknown Cbc With [...] K/ul 016 Unknown Cbc With Differential Ord2 Cook ABS# 0.7 K/ul 04/24/20 16 Unknown Cbc With Differential Ord2 Eos ABS# 0.7 K/ul 04/24/20 16 Unknown Cbc With Differential Ord2 Baso ABS# 0.1 K/ul 04/24/20 16 Unknown Comp Metabolic Kzi388 NA 138 mEq/L 04/24/2016 Unkn own Comp Metabolic Sgl078 K 4.3 mEq/L 04/24/2016 Unkn own Comp Metabolic Oen271 CL 103 mEq/L 04/24/2016 Unkn own Comp Metabolic Rrs290 CO2 28.0 mEq/L 04/24/2016 Unk nown Comp Metabolic Aqv786 ANION GAP 11 04/24/2016 Unkn own Comp Metabolic Uji748 GLUCOSE 138 mg/dL 04/24/2016 Unkn own Comp Metabolic Pfr611 Creat 0.6 mg/dL 04/24/2016 Unkn own Comp Metabolic Jnw260 eGFR 98 ml/min/1.73m2 04/24/20 16 Unknown Comp Metabolic Cwy577 BUN 16 mg/dL 04/24/2016 Unkn own Comp Metabolic Ftd278 B/C Ratio 25.4 Ratio 04/24/2016 Unk nown Comp Metabolic Cln806 CALCIUM 9.2 mg/dL 04/24/2016 Unkn own Comp Metabolic Zud256 ALK PHOS 55 U/L 04/24/2016 Unkn own Comp Metabolic Xwr097 AST(SGOT) 16 U/L 04/24/2016 Unkn own Comp Metabolic Yml892 ALT(SGPT) 16 U/L 04/24/2016 Unkn own Comp Metabolic Qld920 BILI T 0.6 mg/dL 04/24/2016 Unkn own Comp Metabolic Dvv496 ALBUMIN 3.9 g/dL 04/24/2016 Unkn own Comp Metabolic Uuv220 TPRO 6.1 g/dL 04/24/2016 Unkn own Comp Metabolic Hch779 GLOB 2.2 g/dL 04/24/2016 Unkn own Comp Metabolic Wcd204 A/G Ratio 1.7 Ratio 04/24/2016 Unkn own Comp Metabolic Dkb004 Osmo 279 mOsmo 04/24/2016 Unkn own Lipid Ord30 CHOL 208 mg/dL 04/24/2016 Unknown Lipid Ord30 HDL 42.0 mg/dl 04/24/2016 Unknown Lipid Ord30 TRIG 98 mg/dL 04/24/2016 Unknown Lipid Ord30 LDL 146 mg/dL 04/24/2016 Unknown Lipid Ord30 C/HDL 5.0 Ratio 04/24/2016 Unknown %Hba1C Ckw726 % HbA1c 52541-0 7.5 % 04/24/2016 Unknown %Hba1C Ntf567 Gluc Ave 169 mg/dL 04/24/2016 Unknown Tsh Ord6 hTSH II 0.82 uIU/mL 04/24/2016 Unknown Free T4 Cvw940 FREE T4 1.17 ng/dL 04/24/2016 Unknown Digoxin Ord9 DIGOXIN 0.9 NG/ML 02/03/2016 Unknown Free T4 Qbz264 FREE T4 1.17 ng/dL 12/07/2015 Unknown %Hba1C Equ483 % HbA1c 13235-1 7.5 % 12/07/2015 Unknown %Hba1C Wpx142 Gluc Ave 169 mg/dL 12/07/2015 Unknown Tsh [...] 12/07/19 16 Unknown Cbc With Differential Ord2 Cook% 9.3 % 12/07/19 16 Unknown Cbc With [...] K/ul 016 Unknown Cbc With Differential Ord2 Cook ABS# 0.7 K/ul 12/07/19 16 Unknown Cbc [...] C/HDL 4.8 Ratio 12/07/2015 Unknown Comp Metabolic Bax910 NA 139 mEq/L 12/07/2015 Unkn own Comp Metabolic Wsz270 K 4.3 mEq/L 12/07/2015 Unkn own Comp Metabolic Gir171 CL 101 mEq/L 12/07/2015 Unkn own Comp Metabolic Rlq042 CO2 33.0 mEq/L 12/07/2015 Unk nown Comp Metabolic Llo421 ANION GAP 9 12/07/2015 Unkn own Comp Metabolic Hwa370 GLUCOSE 159 mg/dL 12/07/2015 Unkn own Comp Metabolic Upr535 Creat 0.6 mg/dL 12/07/2015 Unkn own Comp Metabolic Syf647 eGFR 108 ml/min/1.73m2 016 Unknown Comp Metabolic Kfg739 BUN 13 mg/dL 12/07/2015 Unkn own Comp Metabolic Hqc923 B/C Ratio 22.4 Ratio 12/07/2015 Unk nown Comp Metabolic Uvx933 CALCIUM 9.0 mg/dL 12/07/2015 Unkn own Comp Metabolic Gnh166 ALK PHOS 60 U/L 12/07/2015 Unkn own Comp Metabolic Gwt327 AST(SGOT) 16 U/L 12/07/2015 Unkn own Comp Metabolic Bzf129 ALT(SGPT) 19 U/L 12/07/2015 Unkn own Comp Metabolic Got687 BILI T 0.6 mg/dL 12/07/2015 Unkn own Comp Metabolic Vaf290 ALBUMIN 4.0 g/dL 12/07/2015 Unkn own Comp Metabolic Grw346 TPRO 6.0 g/dL 12/07/2015 Unkn own Comp Metabolic Nns277 GLOB 2.0 g/dL 12/07/2015 Unkn own Comp Metabolic Ept481 A/G Ratio 1.9 Ratio 12/07/2015 Unkn own Comp Metabolic Vvu719 Osmo 281 mOsmo 12/07/2015 Unkn own Cbc [...] hTSH II 1.10 uIU/mL 06/14/2015 Unknown %Hba1C Wrn855 % HbA1c 37686-5 6.8 % 06/14/2015 Unknown %Hba1C Lun506 Gluc Ave 148 mg/dL 06/14/2015 Unknown Free T4 Cva303 FREE T4 1.31 ng/dL 06/14/2015 Unknown CHEM 14 6798506 AST 14 U/L 12/07/2014 Unknown CHEM 14 9450907 ALT 12 IU/L 12/07/2014 Unknown CHEM 14 0094557 BUN 12 MG/DL 12/07/2014 Unknown CHEM 14 8000563 ALBUMIN 3.9 GM/DL 12/07/2014 Unknown CHEM 14 0990345 CHLORIDE 103 MMOL/L 12/07/2014 Unknown CHEM 14 7872227 BILI TOT 0.6 MG/DL 12/07/2014 Unknown CHEM 14 7868189 ALK PHOS 49 U/L 12/07/2014 Unknown CHEM 14 7465063 SODIUM 140 MMOL/L 12/07/2014 Unknown CHEM 14 9891900 CREATININE 0.57 MG/DL 12/07/2014 Unknown CHEM 14 5048568 CALCIUM 9.5 MG/DL 12/07/2014 Unknown CHEM 14 8377434 POTASSIUM 4.0 MMOL/L 12/07/2014 Unknown CHEM 14 7684489 PROT TOT 6.5 GM/DL 12/07/2014 Unknown CHEM 14 6850717 GLUCOSE 110 MG/DL 12/07/2014 Unknown CHEM 14 3752779 BICARB 29 MMOL/L 12/07/2014 Unknown CHEM 14 4368847 ANION GAP 8 MEQ/L 12/07/2014 Unknown A1C HPLC 9966362 A1C HPLC 97067-8 6.4 % 12/07/2014 Unknown TSH 2008333 TSH 1.106 uIU/ML 12/07/2014 Unknow n LIPID GRP HDL TEST 46 MG/DL 12/07/2014 Unknown LIPID GRP TRIG 119 MG/DL 12/07/2014 Unknown LIPID GRP TEST LDL 108 MG/DL 12/07/2014 Unknown LIPID GRP CHOL 178 MG/DL 12/07/2014 Unknown LIPID GRP RCHOL/HDL 3.87 RATIO 12/07/2014 Unknown LIPID GRP NON-HDL CH 132 MG/DL 12/07/2014 Unknown CBC 0151434 WBC 6.4 10e9/L 12/07/2014 Unknown CBC 1146779 RBC 4.51 10e12/L 12/07/2014 Unknow n CBC 1183337 HGB 12.2 g/dL 12/07/2014 Unknown CBC 2149811 HCT DET 39.0 % 12/07/2014 Unknown CBC 5853150 MCV 86.5 fL 12/07/2014 Unknown CBC 8646691 MCH 27.1 pg 12/07/2014 Unknown CBC 4419516 MCHC 31.3 g/dL 12/07/2014 Unknown CBC 7925744 PLT 325 10e9/L 12/07/2014 Unknown CBC 9896180 MPV 10.4 fL 12/07/2014 Unknown CBC 0615154 TIM % 62.0 % 12/07/2014 Unknown CBC 8757628 LY % 21.4 % 12/07/2014 Unknown CBC 5927721 MON % 9.5 % 12/07/2014 Unknown CBC 7900211 EOS % 6.3 % 12/07/2014 Unknown CBC 0900262 BASO % 0.8 % 12/07/2014 Unknown CBC 9425627 RDW 15.8 % 12/07/2014 Unknown CBC 6259350 ABS TIM 3.97 10e9/L 12/07/2014 Unknown CBC 9039958 ABS LYMPH 1.37 10e9/L 12/07/2014 Unknown CBC 5468633 ABS MONO 0.61 10e9/L 12/07/2014 Unknown CBC 2217202 ABS EOS 0.40 10e9/L 12/07/2014 Unknown CBC 4865181 ABS BASO 0.05 10e9/L 12/07/2014 Unknown CBC 6609691 RDW-SD 48.8 fL 12/07/2014 Unknown FREE T4 4443650 FREE T4 1.37 NG/DL 12/07/2014 Unknown GFR CALC 4181503 GFR AA >60 ML/MIN 12/07/2014 Unknown GFR CALC 1605082 GFR NON-AA >60 ML/MIN 12/07/2014 Unknown CHEM 14 3357732 AST 17 U/L 11/04/2013 Unknown CHEM 14 9576271 ALT 16 IU/L 11/04/2013 Unknown CHEM 14 8773642 BUN 13 MG/DL 11/04/2013 Unknown CHEM 14 9388091 ALBUMIN 4.3 GM/DL 11/04/2013 Unknown CHEM 14 4099418 CHLORIDE 104 MMOL/L 11/04/2013 Unknown CHEM 14 2482395 BILI TOT 0.7 MG/DL 11/04/2013 Unknown CHEM 14 6493808 ALK PHOS 67 U/L 11/04/2013 Unknown CHEM 14 7017688 SODIUM 140 MMOL/L 11/04/2013 Unknown CHEM 14 1194121 CREATININE 0.64 MG/DL 11/04/2013 Unknown CHEM 14 2630410 CALCIUM 9.5 MG/DL 11/04/2013 Unknown CHEM 14 2790080 POTASSIUM 4.0 MMOL/L 11/04/2013 Unknown CHEM 14 7119675 PROT TOT 6.1 GM/DL 11/04/2013 Unknown CHEM 14 7920434 GLUCOSE 157 MG/DL 11/04/2013 Unknown CHEM 14 7213837 BICARB 27 MMOL/L 11/04/2013 Unknown CHEM 14 5311700 ANION GAP 9 MEQ/L 11/04/2013 Unknown FREE T4 9660674 FREE T4 1.44 NG/DL 11/04/2013 Unknown GFR CALC 8767440 GFR AA >60 ML/MIN 11/04/2013 Unknown GFR CALC 5518596 GFR NON-AA >60 ML/MIN 11/04/2013 Unknown TSH 3799160 TSH 0.841 uIU/ML 11/04/2013 Unknow n A1C HPLC 0380770 A1C HPLC 27562-3 7.2 % 11/04/2013 Unknown LIPID GRP HDL TEST 45 MG/DL 11/04/2013 Unknown LIPID GRP TRIG 104 MG/DL 11/04/2013 Unknown LIPID GRP TEST LDL 82 MG/DL 11/04/2013 Unknown LIPID GRP CHOL 148 MG/DL 11/04/2013 Unknown LIPID GRP RCHOL/HDL 3.29 RATIO 11/04/2013 Unknown CBC 1955298 WBC 6.2 10e9/L 11/04/2013 Unknown CBC 7390189 RBC 4.38 10e12/L 11/04/2013 Unknow n CBC 5251728 HGB 11.8 g/dL 11/04/2013 Unknown CBC 0949147 HCT DET 37.5 % 11/04/2013 Unknown CBC 5726060 MCV 85.6 fL 11/04/2013 Unknown CBC 7599266 MCH 26.9 pg 11/04/2013 Unknown CBC 7106736 MCHC 31.5 g/dL 11/04/2013 Unknown CBC 0527055 PLT 330 10e9/L 11/04/2013 Unknown CBC 5188452 MPV 10.6 fL 11/04/2013 Unknown CBC 1827644 TIM % 60.8 % 11/04/2013 Unknown CBC 5185548 LY % 22.1 % 11/04/2013 Unknown CBC 3105567 MON % 9.6 % 11/04/2013 Unknown CBC 5849203 EOS % 6.4 % 11/04/2013 Unknown CBC 8387831 BASO % 1.1 % 11/04/2013 Unknown CBC 9236922 RDW 15.6 % 11/04/2013 Unknown CBC 0261547 ABS TIM 3.77 10e9/L 11/04/2013 Unknown CBC 7016907 ABS LYMPH 1.37 10e9/L 11/04/2013 Unknown CBC 8396305 ABS MONO 0.60 10e9/L 11/04/2013 Unknown CBC 7241915 ABS EOS 0.40 10e9/L 11/04/2013 Unknown CBC 6364367 ABS BASO 0.07 10e9/L 11/04/2013 Unknown CBC 4334615 RDW-SD 48.0 fL 11/04/2013 Unknown DIGOXIN 2641497 DIGOXIN 0.5 NG/ML 11/04/2013 Unknown A1C HPLC 4943198 A1C HPLC 17429-3 7.6 % 07/28/2013 Unknown LIPID GRP HDL TEST 38 MG/DL 07/28/2013 Unknown LIPID GRP TRIG 137 MG/DL 07/28/2013 Unknown LIPID GRP TEST LDL 73 MG/DL 07/28/2013 Unknown LIPID GRP CHOL 138 MG/DL 07/28/2013 Unknown LIPID GRP 9192415 RCHOL/HDL 3.63 RATIO 07/28/2013 Unknown LIVER PNL 7611240 BILI DIR 0.2 MG/DL 07/28/2013 Unknown DIGOXIN 0052777 DIGOXIN 0.4 NG/ML 07/28/2013 Unknown CBC 4615204 WBC 7.2 10e9/L 07/28/2013 Unknown CBC 3921432 RBC 4.65 10e12/L 07/28/2013 Unknow n CBC 0823243 HGB 12.6 g/dL 07/28/2013 Unknown CBC 7032250 HCT DET 39.6 % 07/28/2013 Unknown CBC 3706554 MCV 85.2 fL 07/28/2013 Unknown CBC 4583185 MCH 27.1 pg 07/28/2013 Unknown CBC 6359737 MCHC 31.8 g/dL 07/28/2013 Unknown CBC 7545267 PLT 344 10e9/L 07/28/2013 Unknown CBC 6220771 MPV 10.7 fL 07/28/2013 Unknown CBC 0767668 TIM % 61.4 % 07/28/2013 Unknown CBC 6160123 LY % 22.4 % 07/28/2013 Unknown CBC 7923385 MON % 8.4 % 07/28/2013 Unknown CBC 0107268 EOS % 6.8 % 07/28/2013 Unknown CBC 4149852 BASO % 1.0 % 07/28/2013 Unknown CBC 1843064 RDW 15.5 % 07/28/2013 Unknown CBC 2009961 ABS TIM 4.42 10e9/L 07/28/2013 Unknown CBC 3772401 ABS LYMPH 1.61 10e9/L 07/28/2013 Unknown CBC 2994004 ABS MONO 0.60 10e9/L 07/28/2013 Unknown CBC 3971978 ABS EOS 0.49 10e9/L 07/28/2013 Unknown CBC 8211138 ABS BASO 0.07 10e9/L 07/28/2013 Unknown CBC 7644738 RDW-SD 47.2 fL 07/28/2013 Unknown GFR CALC 1659089 GFR AA >60 ML/MIN 07/28/2013 Unknown GFR CALC 6337294 GFR NON-AA >60 ML/MIN 07/28/2013 Unknown CHEM 14 2054025 AST 20 U/L 07/28/2013 Unknown CHEM 14 20280111 ALT 19 IU/L 07/28/2013 Unknown CHEM 14 8524937 BUN 13 MG/DL 07/28/2013 Unknown CHEM 14 2886821 ALBUMIN 4.1 GM/DL 07/28/2013 Unknown CHEM 14 0476105 CHLORIDE 102 MMOL/L 07/28/2013 Unknown CHEM 14 5564667 BILI TOT 0.7 MG/DL 07/28/2013 Unknown CHEM 14 0563277 ALK PHOS 62 U/L 07/28/2013 Unknown CHEM 14 1571887 SODIUM 139 MMOL/L 07/28/2013 Unknown CHEM 14 4368798 CREATININE 0.66 MG/DL 07/28/2013 Unknown CHEM 14 9453284 CALCIUM 9.3 MG/DL 07/28/2013 Unknown CHEM 14 7156607 POTASSIUM 4.4 MMOL/L 07/28/2013 Unknown CHEM 14 6777656 PROT TOT 6.2 GM/DL 07/28/2013 Unknown CHEM 14 2286657 GLUCOSE 160 MG/DL 07/28/2013 Unknown CHEM 14 3667565 BICARB 29 MMOL/L 07/28/2013 Unknown CHEM 14 6229817 ANION GAP 8 MEQ/L 07/28/2013 Unknown DIGOXIN 4348813 DIGOXIN 0.6 NG/ML 05/12/2013 Unknown GFR CALC 0084825 GFR AA >60 ML/MIN 04/29/2013 Unknown GFR CALC 7360689 GFR NON-AA >60 ML/MIN 04/29/2013 Unknown A1C 8135417 A1C HPLC 25549-1 7.5 % 04/29/2013 Unknown TSH 6895891 TSH 1.161 uIU/ML 04/29/2013 Unknow n CHEM 14 3260622 AST 14 U/L 04/29/2013 Unknown CHEM 14 0756626 ALT 14 IU/L 04/29/2013 Unknown CHEM 14 0773024 BUN 13 MG/DL 04/29/2013 Unknown CHEM 14 1308977 ALBUMIN 4.1 GM/DL 04/29/2013 Unknown CHEM 14 0139310 CHLORIDE 102 MMOL/L 04/29/2013 Unknown CHEM 14 0038441 BILI TOT 0.7 MG/DL 04/29/2013 Unknown CHEM 14 5149716 ALK PHOS 75 U/L 04/29/2013 Unknown CHEM 14 0772028 SODIUM 139 MMOL/L 04/29/2013 Unknown CHEM 14 1865228 CREATININE 0.62 MG/DL 04/29/2013 Unknown CHEM 14 0886944 CALCIUM 9.3 MG/DL 04/29/2013 Unknown CHEM 14 8058062 POTASSIUM 4.0 MMOL/L 04/29/2013 Unknown CHEM 14 0249287 PROT TOT 6.5 GM/DL 04/29/2013 Unknown CHEM 14 7947565 GLUCOSE 152 MG/DL 04/29/2013 Unknown CHEM 14 1266525 BICARB 31 MMOL/L 04/29/2013 Unknown CHEM 14 0506835 ANION GAP 6 MEQ/L 04/29/2013 Unknown CBC 0980869 WBC 7.4 10e9/L 04/29/2013 Unknown CBC 9608605 RBC 4.70 10e12/L 04/29/2013 Unknow n CBC [id number] HGB 12.8 g/dL 04/29/2013 Unknown CBC [id number] HCT DET 40.1 % 04/29/2013 Unknown CBC [id number] MCV 85.3 fL 04/29/2013 Unknown CBC [id number] MCH 27.2 pg 04/29/2013 Unknown CBC [id number] MCHC 31.9 g/dL 04/29/2013 Unknown CBC [id number] PLT 312 10e9/L 04/29/2013 Unknown CBC [id number] MPV 10.4 fL 04/29/2013 Unknown CBC [id number] TIM % 64.9 % 04/29/2013 Unknown CBC [id number] LY % 20.0 % 04/29/2013 Unknown CBC [id number] MON % 8.6 % 04/29/2013 Unknown CBC [id number] EOS % 5.3 % 04/29/2013 Unknown CBC [id number] BASO % 1.2 % 04/29/2013 Unknown CBC [id number] RDW 15.4 % 04/29/2013 Unknown CBC [id number] ABS TIM 4.80 10e9/L 04/29/2013 Unknown CBC [id number] ABS LYMPH 1.48 10e9/L 04/29/2013 Unknown CBC [id number] ABS MONO 0.64 10e9/L 04/29/2013 Unknown CBC [id number] ABS EOS 0.39 10e9/L 04/29/2013 Unknown CBC [id number] ABS BASO 0.09 10e9/L 04/29/2013 Unknown CBC [id number] RDW-SD 47.3 fL 04/29/2013 Unknown LIPID GRP [id number] HDL TEST 43 MG/DL 04/29/2013 Unknown LIPID GRP [id number] TRIG 111 MG/DL 04/29/2013 Unknown LIPID GRP [id number] TEST LDL 65 MG/DL 04/29/2013 Unknown LIPID GRP 1696935 CHOL 130 MG/DL 04/29/2013 Unknown LIPID GRP 7311055 RCHOL/HDL 3.02 RATIO 04/29/2013 Unknown TSH 0505028 TSH 1.406 uIU/ML 12/28/2012 Unknow n A1C 7086535 A1C HPLC 95039-7 7.2 % 12/28/2012 Unknown LIPID GRP HDL TEST 54 MG/DL 12/27/2012 Unknown LIPID GRP TRIG 94 MG/DL 12/27/2012 Unknown LIPID GRP TEST LDL 42 MG/DL 12/27/2012 Unknown LIPID GRP CHOL 115 MG/DL 12/27/2012 Unknown LIPID GRP [id number] RCHOL/HDL 2.13 RATIO 12/27/2012 Unknown GFR CALC 8111832 GFR AA >60 ML/MIN 12/27/2012 Unknown GFR CALC 1344043 GFR NON-AA >60 ML/MIN 12/27/2012 Unknown CHEM 14 8527664 AST 14 U/L 12/27/2012 Unknown CHEM 14 [id number] ALT 13 IU/L 12/27/2012 Unknown CHEM 14 2797754 BUN 13 MG/DL 12/27/2012 Unknown CHEM 14 [id number] ALBUMIN 4.5 GM/DL 12/27/2012 Unknown CHEM 14 [id number] CHLORIDE 105 MMOL/L 12/27/2012 Unknown CHEM 14 [id number] BILI TOT 0.8 MG/DL 12/27/2012 Unknown CHEM 14 [id number] ALK PHOS 69 U/L 12/27/2012 Unknown CHEM 14 [id number] SODIUM 142 MMOL/L 12/27/2012 Unknown CHEM 14 [id number] CREATININE 0.73 MG/DL 12/27/2012 Unknown CHEM 14 7919852 CALCIUM 9.7 MG/DL 12/27/2012 Unknown CHEM 14 [id number] POTASSIUM 4.1 MMOL/L 12/27/2012 Unknown CHEM 14 [id number] PROT TOT 6.8 GM/DL 12/27/2012 Unknown CHEM 14 [id number] GLUCOSE 133 MG/DL 12/27/2012 Unknown CHEM 14 [id number] BICARB 30 MMOL/L 12/27/2012 Unknown CHEM 14 [id number] ANION GAP 7 MEQ/L 12/27/2012 Unknown CBC [id number] WBC 6.8 10e9/L 12/27/2012 Unknown CBC 5040033 RBC 4.72 10e12/L 12/27/2012 Unknow n CBC 3122624 HGB 12.5 g/dL 12/27/2012 Unknown CBC [id number] HCT DET 39.6 % 12/27/2012 Unknown CBC [id number] MCV 83.9 fL 12/27/2012 Unknown CBC [id number] MCH 26.5 pg 12/27/2012 Unknown CBC 5237743 MCHC 31.6 g/dL 12/27/2012 Unknown CBC [id number] PLT 336 10e9/L 12/27/2012 Unknown CBC [id number] MPV 10.4 fL 12/27/2012 Unknown CBC [id number] TIM % 60.7 % 12/27/2012 Unknown CBC [id number] LY % 24.6 % 12/27/2012 Unknown CBC [id number] MON % 8.4 % 12/27/2012 Unknown CBC [id number] EOS % 5.3 % 12/27/2012 Unknown CBC [id number] BASO % 1.0 % 12/27/2012 Unknown CBC [id number] RDW 16.6 % 12/27/2012 Unknown CBC [id number] ABS TIM 4.13 10e9/L 12/27/2012 Unknown CBC [id number] ABS LYMPH 1.67 10e9/L 12/27/2012 Unknown CBC [id number] ABS MONO 0.57 10e9/L 12/27/2012 Unknown CBC 8344182 ABS EOS 0.36 10e9/L 12/27/2012 Unknown CBC [id number] ABS BASO 0.07 10e9/L 12/27/2012 Unknown CBC 5443532 RDW-SD 50.1 fL 12/27/2012 Unknown GFR CALC [id number] GFR AA >60 ML/MIN 08/27/2012 Unknown GFR CALC [id number] GFR NON-AA >60 ML/MIN 08/27/2012 Unknown CHEM 14 5567802 AST 15 U/L 08/27/2012 Unknown CHEM 14 3121728 ALT 17 IU/L 08/27/2012 Unknown CHEM 14 0119740 BUN 14 MG/DL 08/27/2012 Unknown CHEM 14 8046040 ALBUMIN 4.2 GM/DL 08/27/2012 Unknown CHEM 14 8977194 CHLORIDE 103 MMOL/L 08/27/2012 Unknown CHEM 14 0114325 BILI TOT 0.6 MG/DL 08/27/2012 Unknown CHEM 14 4270414 ALK PHOS 86 U/L 08/27/2012 Unknown CHEM 14 8804474 SODIUM 141 MMOL/L 08/27/2012 Unknown CHEM 14 5046479 CREATININE 0.64 MG/DL 08/27/2012 Unknown CHEM 14 9372097 CALCIUM 9.5 MG/DL 08/27/2012 Unknown CHEM 14 8094340 POTASSIUM 4.1 MMOL/L 08/27/2012 Unknown CHEM 14 1472045 PROT TOT 6.1 GM/DL 08/27/2012 Unknown CHEM 14 0513208 GLUCOSE 151 MG/DL 08/27/2012 Unknown CHEM 14 5200498 BICARB 30 MMOL/L 08/27/2012 Unknown CHEM 14 1763208 ANION GAP 8 MEQ/L 08/27/2012 Unknown FREE T4 1366648 FREE T4 1.36 NG/DL 08/27/2012 Unknown CBC 0768043 WBC 7.8 10e9/L 08/27/2012 Unknown CBC 2102738 RBC 4.54 10e12/L 08/27/2012 Unknow n CBC 6347177 HGB 12.0 g/dL 08/27/2012 Unknown CBC 7760274 HCT DET 37.9 % 08/27/2012 Unknown CBC 5550206 MCV 83.5 fL 08/27/2012 Unknown CBC 5730892 MCH 26.4 pg 08/27/2012 Unknown CBC 0277826 MCHC 31.7 g/dL 08/27/2012 Unknown CBC 8328848 PLT 370 10e9/L 08/27/2012 Unknown CBC 5170255 MPV 10.7 fL 08/27/2012 Unknown CBC 2621442 TIM % 65.7 % 08/27/2012 Unknown CBC 3323211 LY % 19.5 % 08/27/2012 Unknown CBC 9824869 MON % 9.0 % 08/27/2012 Unknown CBC 3188999 EOS % 5.0 % 08/27/2012 Unknown CBC 1034080 BASO % 0.8 % 08/27/2012 Unknown CBC 4548263 RDW 15.4 % 08/27/2012 Unknown CBC 6856261 ABS TIM 5.12 10e9/L 08/27/2012 Unknown CBC 4557990 ABS LYMPH 1.52 10e9/L 08/27/2012 Unknown CBC 0246073 ABS MONO 0.70 10e9/L 08/27/2012 Unknown CBC 7877710 ABS EOS 0.39 10e9/L 08/27/2012 Unknown CBC 0627538 ABS BASO 0.06 10e9/L 08/27/2012 Unknown CBC 0036088 RDW-SD 46.3 fL 08/27/2012 Unknown A1C HPLC 3424104 A1C HPLC 64245-8 7.3 % 08/27/2012 Unknown LIPID GRP HDL TEST 41 MG/DL 08/27/2012 Unknown LIPID GRP TRIG 120 MG/DL 08/27/2012 Unknown LIPID GRP 9783498 TEST LDL 67 MG/DL 08/27/2012 Unknown LIPID GRP CHOL 132 MG/DL 08/27/2012 Unknown LIPID GRP RCHOL/HDL 3.22 RATIO 08/27/2012 Unknown TSH 9516292 TSH 0.933 uIU/ML 08/27/2012 Unknow n DIGOXIN 1714937 DIGOXIN 1.4 NG/ML 07/15/2012 Unknown CBC 7080796 WBC 6.3 10e9/L 07/15/2012 Unknown CBC 8441560 RBC 4.44 10e12/L 07/15/2012 Unknow n CBC 4230164 HGB 11.8 g/dL 07/15/2012 Unknown CBC 6582405 HCT DET 36.9 % 07/15/2012 Unknown CBC 5070938 MCV 83.1 fL 07/15/2012 Unknown CBC 0978511 MCH 26.6 pg 07/15/2012 Unknown CBC 6671834 MCHC 32.0 g/dL 07/15/2012 Unknown CBC 9881628 PLT 316 10e9/L 07/15/2012 Unknown CBC 0449869 MPV 10.3 fL 07/15/2012 Unknown CBC 0276522 TIM % 64.4 % 07/15/2012 Unknown CBC 0966702 LY % 19.6 % 07/15/2012 Unknown CBC 1933329 MON % 9.1 % 07/15/2012 Unknown CBC 9760582 EOS % 6.1 % 07/15/2012 Unknown CBC 7622568 BASO % 0.8 % 07/15/2012 Unknown CBC 4460369 RDW 15.3 % 07/15/2012 Unknown CBC 5356749 ABS TIM 4.06 10e9/L 07/15/2012 Unknown CBC 6286889 ABS LYMPH 1.23 10e9/L 07/15/2012 Unknown CBC 1927360 ABS MONO 0.57 10e9/L 07/15/2012 Unknown CBC 4886835 ABS EOS 0.38 10e9/L 07/15/2012 Unknown CBC 1770021 ABS BASO 0.05 10e9/L 07/15/2012 Unknown CBC 4715408 RDW-SD 46.2 fL 07/15/2012 Unknown DIGOXIN 0114199 DIGOXIN 1.4 NG/ML 07/04/2012 Unknown BMP GLUCOSE 137 MG/DL 07/04/2012 Unknown BMP 2085516 CREATININE 0.86 MG/DL 07/04/2012 Unknown BMP 9729793 BUN 14 MG/DL 07/04/2012 Unknown BMP 7359420 SODIUM 140 MMOL/L 07/04/2012 Unknown BMP 2727853 POTASSIUM 4.5 MMOL/L 07/04/2012 Unknown BMP 3263819 CHLORIDE 103 MMOL/L 07/04/2012 Unknown BMP 8234659 BICARB 28 MMOL/L 07/04/2012 Unknown BMP 1062273 ANION GAP 9 MEQ/L 07/04/2012 Unknown BMP 2221364 CALCIUM 9.7 MG/DL 07/04/2012 Unknown CBC 4368266 WBC 6.9 10e9/L 07/04/2012 Unknown CBC 3572832 RBC 4.56 10e12/L 07/04/2012 Unknow n CBC 8199485 HGB 12.2 g/dL 07/04/2012 Unknown CBC 9263171 HCT DET 38.1 % 07/04/2012 Unknown CBC 5768770 MCV 83.6 fL 07/04/2012 Unknown CBC 5635892 MCH 26.8 pg 07/04/2012 Unknown CBC 3026975 MCHC 32.0 g/dL 07/04/2012 Unknown CBC 7341301 PLT 382 10e9/L 07/04/2012 Unknown CBC 6515322 MPV 10.6 fL 07/04/2012 Unknown CBC 5048407 TIM % 58.7 % 07/04/2012 Unknown CBC 6546475 LY % 23.7 % 07/04/2012 Unknown CBC 7674913 MON % 10.2 % 07/04/2012 Unknown CBC 8801400 EOS % 6.4 % 07/04/2012 Unknown CBC 1211131 BASO % 1.0 % 07/04/2012 Unknown CBC 7435555 RDW 15.8 % 07/04/2012 Unknown CBC 4604690 ABS TIM 4.05 10e9/L 07/04/2012 Unknown CBC 0721903 ABS LYMPH 1.64 10e9/L 07/04/2012 Unknown CBC 5121731 ABS MONO 0.70 10e9/L 07/04/2012 Unknown CBC 5055233 ABS EOS 0.44 10e9/L 07/04/2012 Unknown CBC 4665572 ABS BASO 0.07 10e9/L 07/04/2012 Unknown CBC 3451758 RDW-SD 47.5 fL 07/04/2012 Unknown GFR CALC 2173180 GFR AA >60 ML/MIN 07/04/2012 Unknown GFR CALC 1906809 GFR NON-AA >60 ML/MIN 07/04/2012 Unknown A1C HPLC 9053740 A1C HPLC 07414-9 7.1 % 03/27/2012 Unknown GFR CALC 4127884 GFR AA >60 ML/MIN 03/26/2012 Unknown GFR CALC 2792859 GFR NON-AA >60 ML/MIN 03/26/2012 Unknown LIPID GRP HDL TEST 40 MG/DL 03/26/2012 Unknown LIPID GRP TRIG 93 MG/DL 03/26/2012 Unknown LIPID GRP TEST LDL 62 MG/DL 03/26/2012 Unknown LIPID GRP CHOL 121 MG/DL 03/26/2012 Unknown LIPID GRP RCHOL/HDL 3.03 RATIO 03/26/2012 Unknown TSH 5741395 TSH 0.842 uIU/ML 03/26/2012 Unknow n FREE T4 6960651 FREE T4 1.30 NG/DL 03/26/2012 Unknown CBC 7635982 WBC 5.3 10e9/L 03/26/2012 Unknown CBC 8684237 RBC 4.70 10e12/L 03/26/2012 Unknow n CBC 7352842 HGB 12.1 g/dL 03/26/2012 Unknown CBC 7854793 HCT DET 38.1 % 03/26/2012 Unknown CBC 0454181 MCV 81.1 fL 03/26/2012 Unknown CBC 4414214 MCH 25.7 pg 03/26/2012 Unknown CBC 6983780 MCHC 31.8 g/dL 03/26/2012 Unknown CBC 4027985 PLT 315 10e9/L 03/26/2012 Unknown CBC 5459095 MPV 10.9 fL 03/26/2012 Unknown CBC 8805541 TIM % 54.8 % 03/26/2012 Unknown CBC 6268691 LY % 25.8 % 03/26/2012 Unknown CBC 2531470 MON % 11.6 % 03/26/2012 Unknown CBC 1659451 EOS % 7.0 % 03/26/2012 Unknown CBC 0961668 BASO % 0.8 % 03/26/2012 Unknown CBC 2292009 RDW 16.7 % 03/26/2012 Unknown CBC 9663967 ABS TIM 2.90 10e9/L 03/26/2012 Unknown CBC 5952073 ABS LYMPH 1.37 10e9/L 03/26/2012 Unknown CBC 9712051 ABS MONO 0.61 10e9/L 03/26/2012 Unknown CBC 4513523 ABS EOS 0.37 10e9/L 03/26/2012 Unknown CBC 1454601 ABS BASO 0.04 10e9/L 03/26/2012 Unknown CBC 8854534 RDW-SD 48.8 fL 03/26/2012 Unknown CHEM 14 3338317 AST 18 U/L 03/26/2012 Unknown CHEM 14 7002671 ALT 17 IU/L 03/26/2012 Unknown CHEM 14 3026582 BUN 16 MG/DL 03/26/2012 Unknown CHEM 14 9795910 ALBUMIN 4.3 GM/DL 03/26/2012 Unknown CHEM 14 7071671 CHLORIDE 103 MMOL/L 03/26/2012 Unknown CHEM 14 2769841 BILI TOT 0.9 MG/DL 03/26/2012 Unknown CHEM 14 6951486 ALK PHOS 79 U/L 03/26/2012 Unknown CHEM 14 3722037 SODIUM 140 MMOL/L 03/26/2012 Unknown CHEM 14 4271688 CREATININE 0.70 MG/DL 03/26/2012 Unknown CHEM 14 7335684 CALCIUM 9.6 MG/DL 03/26/2012 Unknown CHEM 14 3180401 POTASSIUM 4.1 MMOL/L 03/26/2012 Unknown CHEM 14 5072134 PROT TOT 6.3 GM/DL 03/26/2012 Unknown CHEM 14 6839367 GLUCOSE 142 MG/DL 03/26/2012 Unknown CHEM 14 8064677 BICARB 29 MMOL/L 03/26/2012 Unknown CHEM 14 3095399 ANION GAP 8 MEQ/L 03/26/2012 Unknown LIPID GRP HDL TEST 42 MG/DL 01/08/2012 Unknown LIPID GRP TRIG 105 MG/DL 01/08/2012 Unknown LIPID GRP 1200743 TEST LDL 51 MG/DL 01/08/2012 Unknown LIPID GRP 7859029 CHOL 114 MG/DL 01/08/2012 Unknown LIPID GRP 2075130 RCHOL/HDL 2.71 RATIO 01/08/2012 Unknown CHEM 14 2551085 AST 24 U/L 01/08/2012 Unknown CHEM 14 1904243 ALT 28 IU/L 01/08/2012 Unknown CHEM 14 8824322 BUN 15 MG/DL 01/08/2012 Unknown CHEM 14 3011889 ALBUMIN 4.3 GM/DL 01/08/2012 Unknown CHEM 14 6389053 CHLORIDE 104 MMOL/L 01/08/2012 Unknown CHEM 14 8313639 BILI TOT 0.6 MG/DL 01/08/2012 Unknown CHEM 14 1183903 ALK PHOS 83 U/L 01/08/2012 Unknown CHEM 14 5047153 SODIUM 141 MMOL/L 01/08/2012 Unknown CHEM 14 2862323 CREATININE 0.64 MG/DL 01/08/2012 Unknown CHEM 14 6409100 CALCIUM 9.4 MG/DL 01/08/2012 Unknown CHEM 14 0331004 POTASSIUM 4.0 MMOL/L 01/08/2012 Unknown CHEM 14 8647383 PROT TOT 6.7 GM/DL 01/08/2012 Unknown CHEM 14 2145587 GLUCOSE 145 MG/DL 01/08/2012 Unknown CHEM 14 1819072 BICARB 28 MMOL/L 01/08/2012 Unknown CHEM 14 4598806 ANION GAP 9 MEQ/L 01/08/2012 Unknown CBC 6525563 WBC 5.8 10e9/L 01/08/2012 Unknown CBC 3311221 RBC 4.36 10e12/L 01/08/2012 Unknow n CBC 9804655 HGB 11.6 g/dL 01/08/2012 Unknown CBC 4768900 HCT DET 37.4 % 01/08/2012 Unknown CBC 0375850 MCV 85.8 fL 01/08/2012 Unknown CBC 1492961 MCH 26.6 pg 01/08/2012 Unknown CBC 8332935 MCHC 31.0 g/dL 01/08/2012 Unknown CBC 8354703 PLT 319 10e9/L 01/08/2012 Unknown CBC 4396870 MPV 10.5 fL 01/08/2012 Unknown CBC 7931653 TIM % 62.2 % 01/08/2012 Unknown CBC 8750518 LY % 20.7 % 01/08/2012 Unknown CBC 3311326 MON % 9.3 % 01/08/2012 Unknown CBC 0732850 EOS % 6.4 % 01/08/2012 Unknown CBC 7427677 BASO % 1.4 % 01/08/2012 Unknown CBC 8661835 RDW 14.9 % 01/08/2012 Unknown CBC 8485529 ABS TIM 3.61 10e9/L 01/08/2012 Unknown CBC 2548205 ABS LYMPH 1.20 10e9/L 01/08/2012 Unknown CBC 7006719 ABS MONO 0.54 10e9/L 01/08/2012 Unknown CBC 6906361 ABS EOS 0.37 10e9/L 01/08/2012 Unknown CBC 4970026 ABS BASO 0.08 10e9/L 01/08/2012 Unknown CBC 6213332 RDW-SD 44.9 fL 01/08/2012 Unknown GFR CALC 3298594 GFR AA >60 ML/MIN 01/08/2012 Unknown GFR CALC 3875724 GFR NON-AA >60 ML/MIN 01/08/2012 Unknown A1C HPLC 6613446 A1C HPLC 19413-4 7.2 % 01/08/2012 Unknown Procedures Procedure Codes Date Iaad ia sarscov & influenza virus types a&b CPT-4: 90755 06/05/2022 ADMIN INFLUENZA VIRUS VAC CPT-4: G0008 04/05/2021 IIV NO PRSV INCREASED AG IM CPT-4: 51962 04/05/2021 ADMIN INFLUENZA VIRUS VAC CPT-4: G0008 04/07/2020 IIV NO PRSV INCREASED AG IM CPT-4: 70447 04/07/2020 IIV4 VACC NO PRSV 0.5 ML IM CPT-4: 36232 05/13/2019 IIV4 VACC NO PRSV 0.5 ML IM CPT-4: 79509 05/13/2019 ADMIN INFLUENZA VIRUS VAC CPT-4: G0008 05/13/2019 THER/PROPH/DIAG INJ SC/IM CPT-4: 35003 09/23/2018 TRIAMCINOLONE ACET INJ NOS 10 mg CPT-4: J3301 019 URINALYSIS NONAUTO W/O SCOPE CPT-4: 38058 12/31/2017 OCCULT BLOOD FECES CPT-4: 09279 11/28/2017 TRIAMCINOLONE ACET INJ NOS 10 mg CPT-4: J3301 018 REMOVAL OF IMPACTED WAX CPT-4: G0268 05/29/2017 THER/PROPH/DIAG INJ SC/IM CPT-4: 36694 05/14/2017 KETOROLAC TROMETHAMINE INJ 15 mg CPT-4: J1885 017 ADMIN INFLUENZA VIRUS VAC CPT-4: G0008 04/30/2017 IIV NO PRSV INCREASED AG IM CPT-4: 86159 04/30/2017 THER/PROPH/DIAG INJ SC/IM CPT-4: 64577 03/06/2017 TRIAMCINOLONE ACET INJ NOS 10 mg CPT-4: J3301 017 THER/PROPH/DIAG INJ SC/IM CPT-4: 60014 09/04/2016 TRIAMCINOLONE ACET INJ NOS 10 mg CPT-4: J3301 017 THER/PROPH/DIAG INJ SC/IM CPT-4: 36096 11/11/2015 TRIAMCINOLONE ACET INJ NOS 10 mg CPT-4: J3301 016 TRIAMCINOLONE ACET INJ NOS 10 mg CPT-4: J3301 016 THER/PROPH/DIAG INJ SC/IM CPT-4: 86353 10/25/2015 THER/PROPH/DIAG INJ SC/IM CPT-4: 22866 08/17/2014 TRIAMCINOLONE ACET INJ NOS 10 mg CPT-4: J3301 015 TRIAMCINOLONE ACET INJ NOS 10 mg CPT-4: J3301 014 THER/PROPH/DIAG INJ SC/IM CPT-4: 46133 04/13/2014 ROUTINE VENIPUNCTURE CPT-4: 06627 11/04/2013 ROUTINE VENIPUNCTURE CPT-4: 54145 05/12/2013 ADMIN INFLUENZA VIRUS VAC CPT-4: G0008 05/12/2013 FLULAVAL VACC, 3 YRS & >, IM CPT-4: Q2036 05/12/2013 TRIAMCINOLONE ACET INJ NOS 10 mg CPT-4: J3301 013 THER/PROPH/DIAG INJ SC/IM CPT-4: 67065 10/07/2012 ROUTINE VENIPUNCTURE CPT-4: 30455 08/27/2012 ROUTINE VENIPUNCTURE CPT-4: 26950 07/15/2012 ROUTINE VENIPUNCTURE CPT-4: 63375 03/26/2012 ADMIN INFLUENZA VIRUS VAC CPT-4: G0008 03/26/2012 FLULAVAL VACC, 3 YRS & >, IM CPT-4: Q2036 03/26/2012 Pneumococcal Polysaccharide Vaccine, 23-Valent, Ad CPT-4: 90 732 03/26/2012 ROUTINE VENIPUNCTURE CPT-4: 63723 01/08/2012 ROUTINE VENIPUNCTURE CPT-4: 60315 11/06/2011 ROUTINE VENIPUNCTURE CPT-4: 77562 10/25/2011 ROUTINE VENIPUNCTURE CPT-4: 57722 10/16/2011 ROUTINE VENIPUNCTURE CPT-4: 56464 09/25/2011 INJ TRIGGER POINT 1/2 MUSCL CPT-4: 47857 07/31/2011 TRIAMCINOLONE ACET INJ NOS 10 mg CPT-4: J3301 012 PRESCRIP TRANSMIT VIA ERX SY CPT-4: G8553 05/22/2011 ADMIN INFLUENZA VIRUS VAC CPT-4: G0008 05/02/2011 FLULAVAL VACC, 3 YRS & >, IM CPT-4: Q2036 05/02/2011 ROUTINE VENIPUNCTURE CPT-4: 67358 05/02/2011 Vital Signs Date Vital 10/17/2022 Blood Pressure 1: 130/86 Code: 8480-6 BMI: 26.6 Code: 03472-2 Heart Rate 1: 73 bpm Height: 5'1" Code: 8302-2 Respiratory Rate: 18 bpm SpO2: 98% Temperature: 36.2 (C) / 97.1 (F) Weight: 141 lbs Code: 40124-1 06/20/2022 Blood Pressure 1: 130/76 Code: 8480-6 Heart Rate 1: 53 bpm Height: Code: 8302-2 SpO2: 99% Weight: Code: 51355-0 06/05/2022 Heart Rate 1: 85 bpm Height: Code: 8302-2 Respiratory Rate: 17 bpm Weight: Code: 66128-0 02/23/2022 Blood Pressure 1: 138/72 Code: 8480-6 Heart Rate 1: 65 bpm Height: 5'1" Code: 8302-2 SpO2: 98% Temperature: 37.2 (C) / 98.9 (F) Weight: Code: 15128-4 02/20/2022 Blood Pressure 1: 140/76 Code: 8480-6 BMI: 29.5 Code: 67841-6 Heart Rate 1: 62 bpm Height: 5'1" Code: 8302-2 SpO2: 99% Temperature: 3 6.8 (C) / 98.2 (F) Weight: 156 lbs Code: 95056-5 02/06/2022 Blood Pressure 1: 132/76 Code: 8480-6 BMI: 29.5 Code: 56266-3 Heart Rate 1: 52 bpm Height: 5'1" Code: 8302-2 Respiratory Rate: 17 bpm SpO2: 97% Temperature: 36.4 (C) / 97.5 (F) Weight: 156 lbs Code: 65031-7 08/08/2021 Blood Pressure 1: 142/90 Code: 8480-6 BMI: 30.8 Code: 70528-2 Heart Rate 1: 63 bpm Height: 5'1" Code: 8302-2 Respiratory Rate: 17 bpm SpO2: 96% Temperature: 36.3 (C) / 97.4 (F) Weight: 163 lbs Code: 14855-6 04/05/2021 Blood Pressure 1: 160/98 Code: 8480-6 BMI: 30.4 Code: 96970-5 Heart Rate 1: 63 bpm Height: 5'1" Code: 8302-2 Respiratory Rate: 16 bpm SpO2: 96% Temperature: 36.5 (C) / 97.7 (F) Weight: 161 lbs Code: 74429-9 11/30/2020 Blood Pressure 1: 134/70 Code: 8480-6 BMI: 31.4 Code: 16338-6 Heart Rate 1: 81 bpm Height: 5'1" Code: 8302-2 Respiratory Rate: 16 bpm SpO2: 98% Temperature: 36.3 (C) / 97.3 (F) Weight: 166 lbs Code: 41120-6 08/05/2020 Blood Pressure 1: 180/80 Code: 8480-6 BMI: 31.2 Code: 78963-6 Heart Rate 1: 56 bpm Height: 5'1" Code: 8302-2 Respiratory Rate: 18 bpm SpO2: 97% Temperature: 36.1 (C) / 97.0 (F) Weight: 165 lbs Code: 37974-7 04/07/2020 Blood Pressure 1: 142/86 Code: 8480-6 BMI: 31.0 Code: 65125-2 Heart Rate 1: 67 bpm Height: 5'1" Code: 8302-2 SpO2: 99% Temperature: 3 6.7 (C) / 98.1 (F) Weight: 164 lbs Code: 18376-6 12/09/2019 Height: Code: 8302-2 Weight: Code: 294 63-7 09/09/2019 Blood Pressure 1: 142/80 Code: 8480-6 BMI: 31.0 Code: 53431-8 Heart Rate 1: 70 bpm Height: 5'1" Code: 8302-2 Respiratory Rate: 16 bpm SpO2: 98% Weight: 164 lbs Code: 91017-2 05/13/2019 Blood Pressure 1: 160/80 Code: 8480-6 BMI: 30.4 Code: 76920-7 Heart Rate 1: 68 bpm Height: 5'1" Code: 8302-2 SpO2: 97% Weight: 161 lb s Code: 61156-3 02/05/2019 Blood Pressure 1: 140/82 Code: 8480-6 BMI: 30.5 Code: 95861-7 Heart Rate 1: 76 bpm Height: 5'1" Code: 8302-2 SpO2: 97% Weight: 161 lb s 10 oz Code: 78578-4 01/21/2019 Blood Pressure 1: 136/76 Code: 8480-6 BMI: 31.0 Code: 00177-0 Heart Rate 1: 80 bpm Height: 5'1" Code: 8302-2 SpO2: 97% Weight: 164 lb s Code: 32728-8 09/23/2018 Blood Pressure 1: 132/80 Code: 8480-6 BMI: 30.4 Code: 76359-7 Heart Rate 1: 67 bpm Height: 5'1" Code: 8302-2 SpO2: 97% Weight: 161 lb s Code: 06778-1 05/27/2018 Blood Pressure 1: 128/76 Code: 8480-6 BMI: 28.9 Code: 25196-5 Heart Rate 1: 74 bpm Height: 5'1" Code: 8302-2 SpO2: 99% Weight: 153 lb s Code: 70246-7 01/21/2018 Blood Pressure 1: 132/78 Code: 8480-6 BMI: 28.7 Code: 79442-2 Heart Rate 1: 112 bpm Height: 5'1" Code: 8302-2 SpO2: 98% Weight: 152 lb s Code: 87817-4 12/04/2017 Blood Pressure 1: 140/74 Code: 8480-6 BMI: 27.6 Code: 54614-6 Heart Rate 1: 76 bpm Height: 5'1" Code: 8302-2 SpO2: 97% Weight: 146 lb s Code: 73276-2 11/13/2017 Blood Pressure 1: 166/78 Code: 8480-6 BMI: 27.4 Code: 86088-7 Heart Rate 1: 78 bpm Height: 5'1" Code: 8302-2 SpO2: 98% Weight: 145 lb s Code: 56261-5 10/30/2017 Blood Pressure 1: 148/72 Code: 8480-6 BMI: 27.8 Code: 51003-5 Heart Rate 1: 92 bpm Height: 5'1" Code: 8302-2 SpO2: 96% Weight: 147 lb s Code: 15791-0 09/20/2017 Blood Pressure 1: 146/68 Code: 8480-6 BMI: 28.2 Code: 12904-3 Heart Rate 1: 66 bpm Height: 5'1" Code: 8302-2 SpO2: 99% Weight: 149 lb s Code: 87235-0 05/29/2017 Blood Pressure 1: 156/82 Code: 8480-6 BMI: 28.7 Code: 80020-6 Heart Rate 1: 71 bpm Height: 5'1" Code: 8302-2 SpO2: 96% Weight: 152 lb s Code: 81764-2 05/14/2017 Blood Pressure 1: 150/88 Code: 8480-6 BMI: 28.5 Code: 60753-5 Heart Rate 1: 71 bpm Height: 5'1" Code: 8302-2 SpO2: 98% Weight: 151 lb s Code: 02967-1 03/06/2017 Blood Pressure 1: 148/66 Code: 8480-6 BMI: 28.5 Code: 33934-9 Heart Rate 1: 78 bpm Height: 5'1" Code: 8302-2 SpO2: 98% Weight: 151 lb s Code: 32941-2 11/01/2016 Blood Pressure 1: 150/84 Code: 8480-6 BMI: 29.1 Code: 61075-6 Heart Rate 1: 71 bpm Height: 5'1" Code: 8302-2 SpO2: 97% Weight: 154 lb s Code: 52177-0 10/18/2016 Blood Pressure 1: 156/98 Code: 8480-6 Heart Rate 1: 68 bpm Height: 5'1" Code: 8302-2 SpO2: 98% Weight: Code: 05734-2 10/12/2016 Blood Pressure 1: 142/76 Code: 8480-6 BMI: 30.0 Code: 15146-9 Heart Rate 1: 76 bpm Height: 5'1" Code: 8302-2 SpO2: 95% Weight: 159 lb s Code: 21926-3 09/04/2016 Blood Pressure 1: 148/84 Code: 8480-6 Bl ood Pressure 1: 120/70 Code: 8480-6 BMI: 30.0 Code: 93005-3 Heart Rate 1: 72 bpm Height: 5'1" Code: 8302-2 SpO2: 94% Weight: 159 lbs Code: 11144-2 05/30/2016 Blood Pressure 1: 152/84 Code: 8480-6 BMI: 29.9 Code: 07988-8 Heart Rate 1: 76 bpm Height: 5'1" Code: 8302-2 SpO2: 97% Weight: 158 lb s 8 oz Code: 38190-3 05/01/2016 Blood Pressure 1: 146/60 Code: 8480-6 BMI: 29.9 Code: 47684-2 Heart Rate 1: 72 bpm Height: 5'1" Code: 8302-2 SpO2: 97% Weight: 158 lb s Code: 42955-2 02/29/2016 Blood Pressure 1: 152/82 Code: 8480-6 BMI: 30.4 Code: 63852-6 Heart Rate 1: 71 bpm Height: 5'1" Code: 8302-2 SpO2: 96% Weight: 161 lb s Code: 19073-4 02/03/2016 Blood Pressure 1: 148/88 Code: 8480-6 BMI: 30.6 Code: 71060-9 Heart Rate 1: 72 bpm Height: 5'1" Code: 8302-2 SpO2: 98% Weight: 162 lb s Code: 23157-9 12/21/2015 Blood Pressure 1: 180/78 Code: 8480-6 BMI: 30.9 Code: 86104-1 Heart Rate 1: 64 bpm Height: 5'1" Code: 8302-2 SpO2: 97% Weight: 163 lb s 8 oz Code: 12370-6 10/25/2015 Blood Pressure 1: 150/78 Code: 8480-6 BMI: 31.0 Code: 52336-5 Heart Rate 1: 73 bpm Height: 5'1" Code: 8302-2 SpO2: 98% Weight: 164 lb s Code: 00206-8 10/19/2015 Blood Pressure 1: 122/72 Code: 8480-6 BMI: 31.6 Code: 27185-1 Heart Rate 1: 88 bpm Height: 5'1" Code: 8302-2 SpO2: 98% Weight: 167 lb s Code: 30304-6 06/22/2015 Blood Pressure 1: 150/82 Code: 8480-6 BMI: 31.4 Code: 44839-7 Heart Rate 1: 86 bpm Height: 5'1" Code: 8302-2 SpO2: 96% Weight: 166 lb s Code: 34940-4 12/22/2014 Blood Pressure 1: 160/92 Code: 8480-6 BMI: 31.2 Code: 02783-8 Heart Rate 1: 85 bpm Height: 5'1" Code: 8302-2 SpO2: 97% Weight: 165 lb s Code: 94441-4 08/17/2014 Blood Pressure 1: 138/80 Code: 8480-6 BMI: 31.6 Code: 68596-0 Heart Rate 1: 77 bpm Height: 5'1" Code: 8302-2 SpO2: 97% Weight: 167 lb s Code: 90884-9 04/13/2014 Blood Pressure 1: 144/88 Code: 8480-6 BMI: 31.6 Code: 76001-8 Heart Rate 1: 90 bpm Height: 5'1" Code: 8302-2 Weight: 167 lbs Code: 13227 -7 12/11/2013 Blood Pressure 1: 168/90 Code: 8480-6 BMI: 32.3 Code: 30695-6 Heart Rate 1: 72 bpm Height: 5'1" Code: 8302-2 Weight: 171 lbs Code: 14078 -7 11/10/2013 Blood Pressure 1: 150/80 Code: 8480-6 BMI: 32.3 Code: 34106-1 Heart Rate 1: 76 bpm Height: 5'1" Code: 8302-2 Weight: 171 lbs Code: 28901 -7 08/11/2013 Blood Pressure 1: 152/80 Code: 8480-6 BMI: 32.5 Code: 75632-4 Heart Rate 1: 92 bpm Height: 5'1" Code: 8302-2 Temperature: 36.7 (C) / 98.0 (F) Weight: 172 lbs Code: 68939-8 05/12/2013 Blood Pressure 1: 142/102 Code: 8480-6 B lood Pressure 2: 144/98 Code: 8480-6 BMI: 34.2 Code: 45682-7 Heart Rate 1: 80 bpm Height: 5'1" Code: 8302-2 Weight: 181 lbs Code: 98913-0 01/06/2013 Blood Pressure 1: 138/76 Code: 8480-6 BMI: 34.6 Code: 64773-8 Heart Rate 1: 64 bpm Height: 5'1" Code: 8302-2 Weight: 183 lbs Code: 86450 -7 10/07/2012 Blood Pressure 1: 146/76 Code: 8480-6 BMI: 35.6 Code: 96455-7 Heart Rate 1: 76 bpm Height: 5'1" Code: 8302-2 Respiratory Rate: 20 bpm Weight: 1 88 lbs 8 oz Code: 07296-0 09/11/2012 Blood Pressure 1: 158/92 Code: 8480-6 BMI: 35.7 Code: 08654-7 Heart Rate 1: 76 bpm Height: 5'1" Code: 8302-2 Weight: 189 lbs Code: 58467 -7 07/15/2012 Blood Pressure 1: 158/100 Code: 8480-6 BMI: 36.3 Code: 42228-6 Heart Rate 1: 72 bpm Height: 5'1" Code: 8302-2 Respiratory Rate: 20 bpm Weight: 1 92 lbs Code: 99236-4 05/02/2012 Blood Pressure 1: 156/80 Code: 8480-6 BMI: 35.9 Code: 54380-9 Heart Rate 1: 72 bpm Height: 5'1" Code: 8302-2 Weight: 190 lbs Code: 31794 -7 03/28/2012 Blood Pressure 1: 133/88 Code: 8480-6 Heart Rate 1: 78 bpm Weight: 189 lbs Code: 03363-1 11/27/2011 Blood Pressure 1: 178/80 Code: 8480-6 BMI: 36.7 Code: 94693-5 Heart Rate 1: 72 bpm Height: 5'1" Code: 8302-2 Respiratory Rate: 20 bpm Weight: 1 94 lbs Code: 42972-5 10/25/2011 Blood Pressure 1: 122/62 Code: 8480-6 BMI: 37.0 Code: 42334-7 Heart Rate 1: 80 bpm Height: 5'1" Code: 8302-2 Respiratory Rate: 16 bpm Weight: 1 96 lbs Code: 86275-4 10/16/2011 Blood Pressure 1: 136/70 Code: 8480-6 He art Rate 1: 76 bpm 10/11/2011 Blood Pressure 1: 132/60 Code: 8480-6 Heart Rate 1: 84 bpm Respiratory Rate: 20 bpm Weight: 194 lbs Code: 99167-9 10/04/2011 Blood Pressure 1: 152/90 Code: 8480-6 Heart Rate 1: 88 bpm Respiratory Rate: 20 bpm Weight: 193 lbs Code: 11480-9 09/25/2011 Blood Pressure 1: 146/78 Code: 8480-6 Heart Rate 1: 80 bpm Weight: 194 lbs Code: 25621-5 07/31/2011 Blood Pressure 1: 128/78 Code: 8480-6 Bl ood Pressure 2: / Code: 8480-6 BMI: 37.1 Code: 94810-6 Heart Rate 1: 72 bpm Height: 5'1" Code: 8302-2 Respiratory Rate: 16 bpm SpO2: % Temperature: .0 (C) / 32.0 (F) Weig ht: 196 lbs 8 oz Code: 10689-2 05/22/2011 Blood Pressure 1: 147/71 Code: 8480-6 BMI: 18.7 Code: 32495-7 Heart Rate 1: 77 bpm Height: 7'1" Code: 8302-2 Weight: 192 lbs Code: 88106 -7 05/05/2011 Blood Pressure 1: 178/88 Code: 8480-6 BMI: 37.4 Code: 22032-7 Heart Rate 1: 80 bpm Height: 5' Code: 8302-2 Respiratory Rate: 16 bpm Weight: 193 lbs Code: 65959-1 Functional Status No Functional Status data Reason [...] Encounter Performer Location Location Address Codes Date ([id number]) [id number] EST. PATIENT, LEVEL IV Diagnosis: Type 2 diabetes mellitus with hyperglycemia[ICD10: E11.65] Diagnosis: Atrophy of thyroid (acquired)[ICD10: E03.4] Diagnosis: Essential (primary) hypertension[ICD10: I10] Clarice Elaine MD, [address] [address] CPT-4: 9921 4 10/17/2022 ([id number]) [id number] EST. PATIENT, LEVEL IV Diagnosis: Essential (primary) hypertension[ICD10: I10] Diagnosis: Atrophy of thyroid (acquired)[ICD10: E03.4] Diagnosis: Type 2 diabetes mellitus with hyperglycemia[ICD10: E11.65] Clarice Elaine MD, [facility] [address] [place] [address] CPT-4: 61218 06/20/2022 ([id number]) [id number] EST. PATIENT, LEVEL IV Diagnosis: Cough in adult[ICD10: R05.9] Diagnosis: Gastro-esophageal reflux disease with esophagitis[ICD10: K21.00] Diagnosis: Esophageal pain[ICD10: K22.89] Clarice Elaine MD, [facility] [address] [place] [address] CPT-4: 29816 06/05 ([id number]) 96766 EST. PATIENT, LEVEL IV Diagnosis: Pancreatic cyst[ICD10: K86.2] Diagnosis: Rash and nonspecific skin eruption[ICD10: R21] Diagnosis: Cyst of buttocks[ICD10: L72.9] Clarice Elaine MD, [facility] [address] [place] [address] CPT-4: 24993 02/23 ([id number]) 66353 EST. PATIENT, LEVEL III Diagnosis: Cellulitis of left buttock[ICD10: L03.317] Socorro Elaine MD, [facility] [address] [place] [address] CPT-4: 9921 3 02/20/2022 ([id number]) 71448 EST. PATIENT, LEVEL IV Diagnosis: Essential (primary) hypertension[ICD10: I10] Diagnosis: Type 2 diabetes mellitus with hyperglycemia[ICD10: INH6216] Diagnosis: Atrophy of thyroid (acquired)[ICD10: E03.4] Diagnosis: Paroxysmal atrial fibrillation[ICD10: I48.0] Clarice Elaine MD, [facility] [address] [place] [address] CPT-4: 9921 4 02/06/2022 ([id number]) 58945 EST. PATIENT, LEVEL IV Diagnosis: Essential (primary) hypertension[ICD10: I10] Diagnosis: Mild intermittent asthma in adult without complication[ICD10: J45.21] Diagnosis: Atrophy of thyroid (acquired)[ICD10: E03.4] Diagnosis: Type 2 diabetes mellitus without complications[ICD10: E11.9] Clarice Elaine MD, [facility] [facility] [address] [place] [address] CPT-4: 12104 08/08/2021 ([id number]) 51253 EST. PATIENT, LEVEL IV Diagnosis: Essential (primary) hypertension[ICD10: I10] Diagnosis: Mild intermittent asthma in adult without complication[ICD10: J45.21] Diagnosis: Atrophy of thyroid (acquired)[ICD10: E03.4] Diagnosis: Type 2 diabetes mellitus without complications[ICD10: E11.9] Clarice Elaine MD, [facility] [address] [place] [address] CPT-4: 37866 04/05/2021 ([id number]) 92166 EST. PATIENT, LEVEL IV Diagnosis: Essential (primary) hypertension[ICD10: I10] Diagnosis: Atrophy of thyroid (acquired)[ICD10: E03.4] Diagnosis: Type 2 diabetes mellitus without complications[ICD10: E11.9] Clarice Elaine MD, [facility] [address] [place] [address] CPT-4: 98458 11/30/2020 ([id number]) 93220 EST. PATIENT, LEVEL IV Diagnosis: Atrophy of thyroid (acquired)[ICD10: E03.4] Diagnosis: Essential (primary) hypertension[ICD10: I10] Diagnosis: Type 2 diabetes mellitus with hyperglycemia[ICD10: E11.65] Diagnosis: Paroxysmal atrial fibrillation[ICD10: I48.0] Clarice Elaine MD, [facility] [address] [place] [address] CPT-4: 9921 4 08/05/2020 ([id number]) 52036 EST. PATIENT, LEVEL IV Diagnosis: Influenza vaccine administered[ICD10: Z23] Diagnosis: Essential (primary) hypertension[ICD10: I10] Diagnosis: Atrophy of thyroid (acquired)[ICD10: E03.4] Diagnosis: Type 2 diabetes mellitus without complications[ICD10: E11.9] [facility] [address] [place] [address] CPT-4: 14549 04/07/2020 ([id number]) 60905 EST. PATIENT, LEVEL III Diagnosis: Type 2 diabetes mellitus without complications[ICD10: E11.9] Clarice Elaine MD, [facility] [address] [place] [address] CPT-4: 16395 02/12/2020 ([id number]) 26824 EST. PATIENT, LEVEL III Diagnosis: Essential (primary) hypertension[ICD10: I10] Diagnosis: Type 2 diabetes mellitus without complications[ICD10: E11.9] Clarice Elaine [facility] [address] [place] [address] CPT-4: 19445 12/09/2019 ([id number]) 97582 EST. PATIENT, LEVEL IV Diagnosis: Essential (primary) hypertension[ICD10: I10] Diagnosis: Type 2 diabetes mellitus with hyperglycemia[ICD10: E11.65] Diagnosis: Atrophy of thyroid (acquired)[ICD10: E03.4] Clarice Elaine MD, [facility] [address] [place] [address] CPT-4: 9921 4 09/09/2019 ([id number]) 44421 EST. PATIENT, LEVEL IV Diagnosis: Type 2 diabetes mellitus with hyperglycemia[ICD10: E11.65] Diagnosis: Essential (primary) hypertension[ICD10: I10] Diagnosis: VACCIN FOR INFLUENZA[ICD10: Z23] Diagnosis: Mild intermittent asthma in adult without complication[ICD10: J45.20] Clarice Elaine MD, [facility] [address] [place] [address] CPT-4: 99083 05/13/2019 ([id number]) 12023 EST. PATIENT, LEVEL III Diagnosis: Type 2 diabetes mellitus without complications[ICD10: E11.9] Diagnosis: Essential (primary) hypertension[ICD10: I10] Clarice Elaine MD, [facility] [address] [place] [address] CPT-4: 9921 3 02/05/2019 ([id number]) 17370 EST. PATIENT, LEVEL IV Diagnosis: Essential (primary) hypertension[ICD10: I10] Diagnosis: Mild intermittent asthma with (acute) exacerbation[ICD10: J45.21] Diagnosis: Type 2 diabetes mellitus with hyperglycemia[ICD10: E11.65] Diagnosis: Acute bronchitis due to other specified organisms[ICD10: J20.8] Clarice Elaine MD, [facility] [address] [place] [address] CPT-4: 58983 01/21/2019 ([id number]) 88749 EST. PATIENT, LEVEL IV Diagnosis: Cough[ICD10: R05] Diagnosis: Atrophy of thyroid (acquired)[ICD10: E03.4] Diagnosis: Type 2 diabetes mellitus with hyperglycemia[ICD10: E11.65] Clarice Elaine MD, [facility] [address] [place] [address] CPT-4: 12343 09/23/2018 ([id number]) 58488 EST. PATIENT, LEVEL IV Diagnosis: Type 2 diabetes mellitus with hyperglycemia[ICD10: E11.65] Diagnosis: Atrophy of thyroid (acquired)[ICD10: E03.4] Clarice Elaine MD, [facility] [address] [place] [address] CPT-4: 9921 4 05/27/2018 ([id number]) 94870 EST. PATIENT, LEVEL IV Diagnosis: Type 2 diabetes mellitus without complications[ICD10: E11.9] Diagnosis: Paroxysmal atrial fibrillation[ICD10: I48.0] Diagnosis: Essential (primary) hypertension[ICD10: I10] Clarice Elaine MD, [facility] [address] [place] [address] CPT-4: 9921 4 01/21/2018 ([id number]) 17598 EST. PATIENT, LEVEL III Diagnosis: Paroxysmal atrial fibrillation[ICD10: I48.0] Diagnosis: Other specified anemias[ICD10: D64.89] Clarice Bay MD, [facility] [address] [place] [address] CPT-4: 9921 3 12/04/2017 ([id number]) 64495 EST. PATIENT, LEVEL IV Diagnosis: Benign paroxysmal vertigo, bilateral[ICD10: H81.13] Diagnosis: Essential (primary) hypertension[ICD10: I10] Diagnosis: Other fatigue[ICD10: R53.83] Diagnosis: Other specified anemias[ICD10: D64.89] Diagnosis: Other allergic rhinitis[ICD10: J30.89] Socorro Bay MD, [facility] [address] [place] [address] CPT-4: 9921 4 11/13/2017 ([id number]) 42204 EST. PATIENT, LEVEL III Diagnosis: Mild intermittent asthma with (acute) exacerbation[ICD10: J45.21] Diagnosis: Cough[ICD10: R05] Socorro Elaine MD, [facility] [address] [place] [address] CPT-4: 32600 10/30/2017 ([id number]) 11387 EST. PATIENT, LEVEL IV Diagnosis: Gastro-esophageal reflux disease without esophagitis[ICD10: K21.9] Diagnosis: Type 2 diabetes mellitus without complications[ICD10: E11.9] Diagnosis: Other specified anemias[ICD10: D64.89] Diagnosis: Paroxysmal atrial fibrillation[ICD10: I48.0] Socorro Elaine MD, [facility] [address] [place] [address] CPT-4: 9921 4 09/20/2017 ([id number]) 45581 EST. PATIENT, LEVEL III Diagnosis: Essential (primary) hypertension[ICD10: I10] Clarice Elaine MD, [facility] [address] [place] [address] CPT-4: 9921 3 05/29/2017 ([id number]) 75680 EST. PATIENT, LEVEL III Diagnosis: Acute bronchitis due to other specified organisms[ICD10: J20.8] Diagnosis: Cough[ICD10: R05] Diagnosis: Other chest pain[ICD10: R07.89] Clarice sales MD, [facility] [address] [place] [address] CPT-4: 9921 3 05/14/2017 ([id number]) 49840 EST. PATIENT, LEVEL IV Diagnosis: Type 2 diabetes mellitus with hyperglycemia[ICD10: E11.65] Diagnosis: Essential (primary) hypertension[ICD10: I10] Diagnosis: Mild intermittent asthma with (acute) exacerbation[ICD10: J45.21] Clarice Elaine MD, [facility] [address] [place] [address] CPT-4: 94200 03/06/2017 ([id number]) 32121 EST. PATIENT, LEVEL III Diagnosis: Essential (primary) hypertension[ICD10: I10] Diagnosis: Gastro-esophageal reflux disease with esophagitis[ICD10: K21.0] Clarice Elaine MD, 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 [address] [place] [address] CPT-4: 43978H 10/18/2016 59330 EST. PATIENT, LEVEL III Diagnosis: Mild intermittent asthma with (acute) exacerbation[ICD10: J45.21] Diagnosis: Gastro-esophageal reflux disease without esophagitis[ICD10: K21.9] Jayne Elaine MD, [facility] [address] [place] [address] CPT-4: 30352 10/12/2016 ([id number]) 52890 EST. PATIENT, LEVEL IV Diagnosis: Type 2 diabetes mellitus with hyperglycemia[ICD10: E11.65] Diagnosis: Essential (primary) hypertension[ICD10: I10] Diagnosis: Mild intermittent asthma with (acute) exacerbation[ICD10: J45.21] Clarice Elaine MD, [facility] [address] [place] [address] CPT-4: 34103 09/04/2016 85987 EST. PATIENT, LEVEL III Diagnosis: Pain in left ankle and joints of left foot[ICD10: M25.572] Diagnosis: Localized edema[ICD10: R60.0] Jayne Elaine MD, [facility] [address] [place] [address] CPT-4: 76855 05/30 ([id number] 19670 EST. PATIENT, LEVEL III Diagnosis: Type 2 diabetes mellitus with hyperglycemia[ICD10: E11.65] Clarice Elaine MD, [facility] [address] [place] [address] CPT-4: 58555 05/01/2016 [id number]) 88882 EST. PATIENT, LEVEL IV Diagnosis: Type 2 diabetes mellitus without complications[ICD10: E11.9] Diagnosis: Moderate persistent asthma, uncomplicated[ICD10: J45.40] Diagnosis: Paroxysmal atrial fibrillation[ICD10: I48.0] Clarice Elaine MD, [facility] [address] [place] [address] CPT-4: 9921 4 02/29/2016 91328) 23524 EST. PATIENT, LEVEL IV Diagnosis: Paroxysmal atrial fibrillation[ICD10: I48.0] Diagnosis: Hypothyroidism, unspecified[ICD10: E03.9] Diagnosis: Type 2 diabetes mellitus without complications[ICD10: E11.9] Diagnosis: Essential (primary) hypertension[ICD10: I10] Diagnosis: Acute maxillary sinusitis, unspecified[ICD10: J01.00] Diagnosis: Moderate persistent asthma, uncomplicated[ICD10: J45.40] Clarice Elaine MD, [facility] [address] [place] [address] CPT-4: 10535 02/03/2016 ([id number]) 49784 EST. PATIENT, LEVEL IV Diagnosis: Type 2 diabetes mellitus without complications[ICD10: E11.9] Diagnosis: Hypothyroidism, unspecified[ICD10: E03.9] Diagnosis: Moderate persistent asthma, uncomplicated[ICD10: J45.40] Diagnosis: Essential (primary) hypertension[ICD10: I10] Clarice Elaine MD, [facility] [address] [place] [address] CPT-4: 9921 4 12/21/2015 [id number]) 54099 EST. PATIENT, LEVEL III Diagnosis: Chronic fatigue, unspecified[ICD10: R53.82] Diagnosis: Mild intermittent asthma with (acute) exacerbation[ICD10: J45.21] Clarice Elaine MD, 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 PATIENT, LEVEL IV Diagnosis: Type 2 diabetes mellitus without complications[ICD10: E11.9] Diagnosis: Essential (primary) hypertension[ICD10: I10] Diagnosis: Hypothyroidism, unspecified[ICD10: E03.9] Clarice Elaine MD, [facility] [address] [place] [address] CPT-4: 9921 4 06/22/2015 ([id number]) 13528 EST. PATIENT, LEVEL IV Diagnosis: ESSENTIAL HYPERTENSION[ICD9: 401.9] Diagnosis: DIABETES TYPE II[ICD9: 250.00] Clarice Elaine MD, [facility] [address] [place] [address] CPT-4: 25376 12/22 ([id number]) 12029 EST. PATIENT, LEVEL IV Diagnosis: ACUTE BRONCHITIS[ICD9: 466.0] Diagnosis: Acute asthma exacerbation[ICD9: 493.92] Diagnosis: ESSENTIAL HYPERTENSION[ICD9: 401.9] Diagnosis: DIABETES TYPE II[ICD9: 250.00] Clarice Elaine MD, [facility] [address] [place] [address] CPT-4: 95892 08/17 ([id number]) 98231 EST. PATIENT, LEVEL IV Diagnosis: DIABETES TYPE II[ICD9: 250.00] Diagnosis: ESSENTIAL HYPERTENSION[ICD9: 401.9] Diagnosis: Acute asthma exacerbation[ICD9: 493.92] Clarice Elaine MD, [facility] [address] [place] [address] CPT-4: 9921 4 04/13/2014 ([id number]) 57672 EST. PATIENT, LEVEL IV Diagnosis: DIABETES TYPE II[ICD9: 250.00] Diagnosis: ESSENTIAL HYPERTENSION[ICD9: 401.9] Diagnosis: HYPOTHYROIDISM[ICD9: 244.9] Clarice Elaine MD, [facility] [address] [place] [address] CPT-4: 10287 12/11 ([id number]) 87353 EST. PATIENT, LEVEL IV Diagnosis: DM W/O COMPLICATION TYPE II, UNCONTROLLED[ICD9: 250.02] Diagnosis: ESSENTIAL HYPERTENSION[ICD9: 401.9] Clarice sandhu MD, [facility] [address] [place] [address] CPT-4: 9921 4 11/10/2013 ([id number]) 24104 EST. PATIENT, LEVEL IV Diagnosis: DM W/O COMPLICATION TYPE II, UNCONTROLLED[SNOMED: 27172721] Diagnosis: ESSENTIAL HYPERTENSION[SNOMED: 75681554] Diagnosis: ACUTE BRONCHITIS[ICD9: 466.0] Clarice Elaine MD, [facility] [address] [place] [address] CPT-4: 94980 08/11 ([id number]) 31582 EST. PATIENT, LEVEL IV Diagnosis: DM W/O COMPLICATION TYPE II, UNCONTROLLED[SNOMED: 25977194] Diagnosis: ATRIAL FIBRILLATION[ICD9: 427.31] Diagnosis: ESSENTIAL HYPERTENSION[SNOMED: 73064692] Clarice Elaine MD, [facility] [address] [place] [address] CPT-4: 9921 4 05/12/2013 ([id number]) 81425 EST. PATIENT, LEVEL IV Diagnosis: DM W/O COMPLICATION TYPE II, UNCONTROLLED[SNOMED: 84742174] Diagnosis: ESSENTIAL HYPERTENSION[SNOMED: 92008734] Clarcie Elaine MD, [facility] [address] [place] [address] CPT-4: 9921 4 01/06/2013 ([id number]) 65320 EST. PATIENT, LEVEL IV Diagnosis: DIABETES TYPE II[SNOMED: 366237994] Diagnosis: ESSENTIAL HYPERTENSION[SNOMED: 72687456] Diagnosis: Acute asthma exacerbation[ICD9: 493.92] Diagnosis: Fatigue[ICD9: 780.79] Clarice Elaine MD, [facility] [address] [place] [address] CPT-4: 52557 10/07/2012 ([id number]) 67492 EST. PATIENT, LEVEL IV Diagnosis: DM W/O COMPLICATION TYPE II, UNCONTROLLED[SNOMED: 20389126] Diagnosis: Lump of breast, right[ICD9: 611.72] Diagnosis: Lump on neck[ICD9: 784.2] Clarice Elaine MD, [facility] [address] [place] [address] CPT-4: 40594 09/11/2012 ([id number]) 22115 EST. PATIENT, LEVEL IV Diagnosis: ESSENTIAL HYPERTENSION[SNOMED: 38608742] Diagnosis: Atrial fibrillation[ICD9: 427.31] Diagnosis: Fatigue[ICD9: 780.79] Diagnosis: Encounter for monitoring digoxin therapy[ICD9: V58.83] Clarice Elaine MD, [facility] [address] [place] [address] CPT-4: 71249 07/15/2012 ([id number]) 14011 EST. PATIENT, LEVEL IV Diagnosis: DIABETES TYPE II[SNOMED: 635323871] Diagnosis: ESSENTIAL HYPERTENSION[SNOMED: 32403558] Clarice Elaine MD, [facility] [address] [place] [address] CPT-4: 9921 4 05/02/2012 ([id number]) 60855 EST. PATIENT, LEVEL IV Diagnosis: DM W/O COMPLICATION TYPE II, UNCONTROLLED[SNOMED: 11941450] Diagnosis: ESSENTIAL HYPERTENSION[SNOMED: 47501991] Diagnosis: HYPERLIPIDEMIA[ICD9: 272.4] Clarice Elaine MD, [facility] [address] [place] [address] CPT-4: 37005 03/28 ([id number]) 83532 EST. PATIENT, LEVEL IV Diagnosis: DM W/O COMPLICATION TYPE II, UNCONTROLLED[SNOMED: 86656863] Diagnosis: ESSENTIAL HYPERTENSION[SNOMED: 83826709] Clarice Elaine MD, [facility] [address] [place] [address] CPT-4: 9921 4 11/27/2011 ([id number]) 11290 EST. PATIENT, LEVEL III Diagnosis: ESSENTIAL HYPERTENSION[SNOMED: 60058655] Diagnosis: ANEMIA[ICD9: 285.9] Diagnosis: Gastritis[ICD9: 535.50] Clarice Elaine MD, [facility] [address] [place] [address] CPT-4: 68363 10/25/2011 ([id number]) 72008 EST. PATIENT, LEVEL III Diagnosis: Anemia associated with acute blood loss[ICD9: 285.1] Diagnosis: Gastritis, acute with hemorrhage[ICD9: 535.01] Clarice Elaine MD, [facility] [address] [place] [address] CPT-4: 9921 3 10/11/2011 ([id number]) 79793 EST. PATIENT, LEVEL IV Diagnosis: Hematochezia[ICD9: 578.1] Diagnosis: ENCNTR LONG-RX USE NEC[ICD9: V58.69] Diagnosis: Abdominal pain[ICD9: 789.00] Clarice Elaine MD, [facility] [address] [place] [address] CPT-4: 79094 10/03 ([id number]) 19513 EST. PATIENT, LEVEL IV Diagnosis: DIABETES TYPE II[SNOMED: 436676169] Diagnosis: ESSENTIAL HYPERTENSION[SNOMED: 25101200] Diagnosis: Coronary artery disease[ICD9: 414.00] Clarice Elaine MD, [facility] [address] [place] [address] CPT-4: 9921 4 09/25/2011 ([id number]) 90537 EST. PATIENT, LEVEL IV Diagnosis: Muscle spasm[ICD9: 728.85] Diagnosis: Arthralgia[ICD9: 719.40] Diagnosis: ESSENTIAL HYPERTENSION[SNOMED: 58387393] [facility] [address] [place] [address] CPT-4: 9921 4 07/31/2011 69190 EST. PATIENT, LEVEL III Diagnosis: ACUTE SINUSITIS[ICD9: 461.9] Diagnosis: Cervicalgia[ICD9: 723.1] Socorro [facility] [address] [place] [address] CPT-4: 20010 05/22/2011 02655 EST. PATIENT, LEVEL IV Diagnosis: HYPERLIPIDEMIA[ICD9: 272.4] Diagnosis: HYPOTHYROIDISM[ICD9: 244.9] Diagnosis: DM W/O COMPLICATION TYPE II, UNCONTROLLED[SNOMED: 29590165] [facility] [address] [place] [address] CPT-4: 91580 05/05/2011 Plan of Care Planned Activity Notes [...] blood thinners. 10/17/2022 Appointment: Clarice Elaine WPtel: [facility]5 [phone] (15 min) Moderate 10/17/2022 Patient Education: Patient [...] blood thinners. 06/20/2022 Appointment: Clarice Elaine WPtel: [phone] [phone] [place] (15 min) Moderate 06/20/2022 Patient Education: Patient Medication Summary Completed 06/20/2022 Patient Education: Hypertension Completed 06/20/2022 Patient Education: Diabetes Completed 06/20/2022 Visit Plan: flu and covid swab GI upset - call bean to let her know about covid status and pantoprazole started as well as her symptoms pt advised to hold xarelto sunday due to her gi symptoms 06/05/2022 Appointment: Clarice Elaine WPtel: [facility]2 [phone] [facility] Appointment 06/05/2022 Patient Education: Patient Medication Summary [...] if worsens 02/23/2022 Appointment: Socorro Salmeron WPtel: [facility]1 [phone] (30 min) Complex 02/23/2022 Patient Education: Patient Medication Summary Completed 02/23/2022 Visit Plan: Cellulitis - left buttock -r x for oral antibiotics to take as directed, return to clinic for recheck, call for acute change in symptoms, worsening redness, warmth, discharge. 02/20/2022 Appointment: Socorro Salmeron WPtel: [address] [place], [place] [phone] (30 min) Complex 02/20/2022 Patient Education: Patient [...] 100mg daily 02/06/2022 Appointment: Clarice Elaine [facility]Ptel[phone] ([facility] min) Complex 02/06/2022 Patient Education: Patient Medication Summary Completed 02/06/2022 Patient Education: Hypertension Completed 02/06/2022 Patient Education: Patient Medication Summary Completed 01/04/2022 Appointment: Socorro Salmeron WPtel[phone] (15 min) Moderate 12/12/2021 Visit Plan: Hypertension [...] 08/08/2021 Patient Education: Diabetes Completed 08/08/2021 Appointment: Salmeron Socorro [facility]Ptel[phone] [place] (30 min) Complex 08/01/2021 Visit Plan: Hypertension [...] in clinic 04/05/2021 Appointment: [facility]el[phone] [place] (15 min) Moderate 04/05/2021 Patient Education: [...] monitor symptoms. 11/30/2020 Appointment: Clarice Elaine WPtel: [phone] (15 min) Moderate 11/30/2020 Patient Education: Patient [...] advair HFA 08/05/2020 Appointment: Clarice Elaine WPtel: [facility]3 [phone] (15 min) Moderate 08/05/2020 Patient Education: Patient [...] monitor symptoms. 04/07/2020 Appointment: Clarice Elaine WPtel: [facility]3 [phone] (15 min) Moderate 04/07/2020 Patient Education: Patient [...] controlled. 02/12/2020 Appointment: Clarice Elaine WPtel: [phone] [phone] [facility] 02/12/2020 Patient Education: Patient Medication Summary Completed [...] at home. 12/09/2019 Appointment: Clarice Elaine WPtel: [phone] [facility] 12/09/2019 Patient Education: Patient Medication Summary Completed [...] becoming uncontrolled. 09/09/2019 Appointment: Clarice Elaine WPtel: [phone] (15 min) Moderate 09/09/2019 Patient Education: Patient [...] clinic 05/13/2019 Appointment: Clarice Elaine WPtel: [phone] [phone] (15 min) Moderate 05/13/2019 Patient Education: Patient Medication Summary Completed 05/13/2019 Patient Education: Diabetes Completed 05/13/2019 Patient Education: Patient Medication Summary Completed 04/10/2019 Care Plan: A1C [facility] : [id number] Pending 04/10/2019 Care Plan: TSH Pending 04/10/2019 [...] controlled. 02/05/2019 Appointment: Clarice Elaine WPtel: [phone] [phone] [place] (15 min) Moderate 02/05/2019 Patient Education: Patient [...] acting insulin. 01/21/2019 Appointment: Clarice Elaine WPtel: [phone] [place] (15 min) Moderate 01/21/2019 Patient Education: Patient Medication Summary Completed 01/21/2019 Patient Education: Diabetes Completed 01/21/2019 Referral: [facility] Patient informed. Referral info faxed. Completed [...] controlled. 09/23/2018 Appointment: Clarice Elaine WPtel: [phone] [phone] (15 min) Moderate 09/23/2018 Patient Education: Patient Medication Summary Completed 09/23/2018 Patient Education: Diabetes Completed 09/23/2018 Care Plan: Referral Order SNOMED-CT : 30 [id number] Pending 09/23/2018 Appointment: Clarice Elaine WPtel: [facility]1 [phone] (15 min) Moderate 05/27/2018 Patient Education: Patient [...] uncontrolled. 01/21/2018 Appointment: Clarice Elaine WPtel: [address] [place] [address] (15 min) Moderate 01/21/2018 Patient Education: [...] venofer IV. 12/04/2017 Appointment: Clarice Elaine WPtel: [facility] [address] (15 min) Moderate 12/04/2017 Patient Education: Patient [...] instructions/medication interventions. HTN-elevated today- monitor at home Fyteya-jxgzihk-afpau labs Allergies-add flonase nasal spray 11/13/2017 Appointment: Socorro Salmeron WPtel: [facility]0 [place] [phone] (30 min) Complex 11/13/2017 Patient Education: Patient [...] acute changes. 10/30/2017 Appointment: Socorro Salmeron WPtel: [facility] (30 min) Complex 10/30/2017 Patient Education: Patient Medication Summary Completed 10/30/2017 Appointment: Clarice Elaine WPtel: [address] [place], [place] [phone] [address] (15 min) Moderate 09/25/2017 Visit Plan: GERD-continue protonix and c arafate-low spice diet -call if symptoms uncontrolled Melana-history of anemia-check Hgb-stay off aspirin per Dr Aguilar Afib-now in NSR -continue xarelto-follow up with Dr Aguilar as scheduled DM- check Hgb A1C 09/20/2017 Appointment: Socorro Salmeron WPtel: [facility]4 [address] (30 min) Complex 09/20/2017 Patient Education: Patient Medication Summary Completed 09/20/2017 Appointment: Clarice Elaine WPtel: [address] [place] [phone] (15 min) Moderate 06/26/2017 Visit Plan: Hypertension [...] removal process. 05/29/2017 Appointment: Clarice Elaine WPtel: [facility]2 [address] (15 min) Moderate 05/29/2017 Patient Education: Patient Medication Summary Completed 05/29/2017 Patient Education: Hypertension Completed 05/29/2017 Visit Plan: Bronchitis - acute case of b ronchitis identified. Pt has been given antibiotics, breathing treatments as appropriate, and pt has been instructed to call if symptoms are not improved, or if symptoms acutely worsen. Chest pain - chest wall - toradol shot hospira [id number] november 2018 05/14/2017 Appointment: Clarice Elaine [facility]Ptel: [phone] (15 min) Moderate 05/14/2017 Patient Education: Patient [...] clinic today. 03/06/2017 Appointment: Clar[facility] Elaine [facility]Ptel: [phone] [phone] (15 min) Moderate 03/06/2017 Patient Education: Patient Medication Summary Completed 03/06/2017 Patient Education: Hypertension Completed 03/06/2017 Appointment: Clarice Elaine WPtel: [address] [phone] (15 min) Moderate 12/05/2016 Visit Plan: Hypertension [...] current treatment. 11/01/2016 Appointment: Clarice Elaine WPtel: [facility]8 [phone] (15 min) Moderate 11/01/2016 Patient Education: Patient Medication Summary Completed 11/01/2016 Visit Plan: ADMIT FROM CLINIC TO [facility] - PT IS ACUTELY ILL, REQUIRES HOSPITALIZATION. THE PATIENT HAS BEEN EVALUATED IN CLINIC AND THIS STANDS THE HOSPITAL HISTORY AND PHYSICAL EXAMINATION. THE PATIENT HAS BEEN SENT TO THE HOSPITAL WITH WRITTEN ORDERS FOR TREATMENT AND EVALUATION OF THE ACUTE ILLNESS. 10/18/2016 Appointment: Clarice Elaine WPtel: [facility]3 [phone] (15 min) Moderate 10/18/2016 Patient Education: Patient [...] acute changes 10/12/2016 Appointment: Jayne Ragland WPtel: [id number] (30 min) Complex 10/12/2016 Patient Education: Patient [...] at home. 09/04/2016 Appointment: Clarice Elaine WPtel: [phone] [id number] (15 min) Moderate 09/04/2016 Patient Education: Patient Medication Summary Completed 09/04/2016 Patient Education: Obesity Completed 0 09/04/2016 Patient Education: Hypertension Completed 09/04/2016 Appointment: [facility]agland [facility]el[phone] [facility] - Annual Wellness Visit 07/2015 Visit Plan: [...] glucose control. 05/01/2016 Appointment: Clarice Elaine WPtel: [facility] [place] [address] (15 min) Moderate 05/01/2016 Patient Education: Patient [...] monitor for acute changes 02/29/2016 Appointment: Clarice Elaien WPtel: [facility]9 [phone] Surgical Procedure 02/29/2016 Patient Education: Patient Medication [...] pressure readings. 12/21/2015 Appointment: Clarice Elaine WPtel: [address] [place], [place] [id number] (15 min) Moderate 12/21/2015 Patient Education: Patient [...] today 10/25/2015 Appointment: Clarice Elaine WPtel: [phone] [phone] (15 min) Moderate 10/25/2015 Patient Education: Patient [...] ILLNESS. 10/19/2015 Appointment: Socorro Salmeron WPtel: [address]1 [phone] (30 min) Complex 10/19/2015 Patient Education: Patient [...] at home. 08/17/2014 Appointment: Clarice Elaine WPtel: [address] [place] [id number] Follow up 08/17/2014 Patient Education: Patient Medication [...] [address] [facility] [place] [address] Follow up 04/13/2014 Patient Education: Patient Medication [...] control. 12/11/2013 Appointment: [facility]el: [phone] Follow up 12/11/2013 Patient Education: Patient Medication [...] acute concerns. 11/10/2013 Appointment: Clar[facility]Ptel: [phone] Follow up 11/10/2013 Patient Education: Patient Medication Summary Completed 11/10/2013 Patient Education: Hypertension Completed 11/10/2013 Appointment: Clarice Elaine WPtel: [phone] [phone] Lab Draw 11/04/2013 Patient Education: Patient Medication [...] 08/11/2013 Appointment: Clarice Elaine WPtel: [phone] [phone] Follow up 08/11/2013 Patient Education: Patient Medication Summary Completed 08/11/2013 Patient Education: Hypertension Completed 08/11/2013 Appointment: Clarice Elaine WPtel: [phone] [phone] Follow up 05/12/2013 Patient Education: Patient Medication [...] [address] [phone] Follow up 01/06/2013 Patient Education: Patient Medication [...] today. 10/07/2012 Appointment: Clarice Elaine [facility]Ptel: [phone] Follow up 10/07/2012 Patient Education: Patient Medication [...] and ultrasound 09/11/2012 Appointment: Clar[facility] Elaine [facility]Ptel: [phone] Follow up 09/11/2012 Patient Education: Patient Medication [...] digoxin level. 07/15/2012 Appointment: Clarice Elaine WPtel: [address] [phone] Follow up 07/15/2012 Patient Education: Patient Medication [...] with Plavix. 05/02/2012 Appointment: Clarice Elaine [facility]Ptel: [phone] Follow up 05/02/2012 Patient Education: Patient Medication [...] ASPIRIN COMPELTELY. 03/28/2012 Appointment: Clarice Elaine WPtel: [address] [place] [phone] Follow up 03/28/2012 Patient Education: Patient Medication [...] at home. 11/27/2011 Appointment: Clarice Elaine WPtel: [facility]5 [phone] Follow up 11/27/2011 Patient Education: Patient Medication Summary Completed 11/27/2011 Patient Education: High Blood Pressure: Essential Hypertension Completed 11/27/2011 Patient Education: Patient Medication Summary Completed 11/06/2011 Appointment: Clarice Elaine WPtel: [address] [place], [place] [id number] [place] Other 11/03/2011 Appointment: Clarice Elaine WPtel: [address] [place], [place] [id number] Other 11/02/2011 Appointment: Clarice Elaine WPtel: [address] [place], [place] [phone] [place] Lab Draw 10/31/2011 Visit Plan: Hypertension [...] times daily. 10/25/2011 Appointment: Clarice Elaine WPtel: [facility]5 [phone] [place] Follow up 10/25/2011 Patient Education: Patient Medication Summary Completed 10/25/2011 Patient Education: High Blood Pressure: Essential Hypertension Completed 10/25/2011 Appointment: Clarice Elaine WPtel: [facility]5 [phone] [place] Lab Draw 10/16/2011 Patient Education: Patient [...] to 11.4 10/11/2011 Appointment: Clarice Elaine WPtel: [facility]3 [place] [address] [place] Other 10/11/2011 Patient Education: Patient Medication Summary Completed 10/11/2011 Appointment: Clarice Elaine WPtel: [facility]1 [place] [address] [place] Other 10/10/2011 Visit Plan: Abdominal pain [...] remained stable. 10/04/2011 Appointment: Clarice Elaine WPtel: [facility]7 [place] [phone] Follow up 10/04/2011 Patient Education: Patient Medication [...] not improve. 09/25/2011 Appointment: Clarice Elaine WPtel: [address] Other 09/25/2011 Patient Education: Patient Medication Summary Completed 09/25/2011 Patient Education: High Blood Pressure: Essential Hypertension Completed 09/25/2011 Appointment: Clarice Elaine WPtel: [facility]3 [place] [address] [place] Other 07/31/2011 Patient Education: Patient Medication [...] on use. 05/22/2011 Appointment: Socorro Salmeron WPtel: [facility]0 [address] Other 05/22/2011 Patient Education: Patient Medication Summary [...] increased. 05/05/2011 Appointment: Clarice Elaine WPtel: [phone] [phone] Other 05/05/2011 Patient Education: Patient Medication Summary Completed 05/05/2011 Patient Education: High Cholesterol Compl eted 05/05/2011 Appointment: Clarice Elaine WPtel: [phone] [phone] Other 05/04/2011 Appointment: Clarice Elaine WPtel: [phone] Lab Draw 05/02/2011 Patient Education: Patient Medication Summary Completed 05/02/2011 Patient Education: High Blood Pressure: Essential Hypertension Completed 05/02/2011 Referral: [facility] Referral Appointment Req uested Instructions Comment Date [...] further instructions/medication interventions. HTN-elevated today-monitor at home [facility] Allergies-add flonase nasal spray 11/13/2017 restart [...] - chest wall - toradol shot hosp[facility] [id number] november 2018 05/14/2017 . Diabetes Mellitus - [...] . 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
--- OUTSIDE RECORDS SUMMARY | 2022-11-09 15:41 | XMS REPORT | CCD ---
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 Name Role Phone Clarice Elaine PP Unavailable CCM Unavailable Summary Purpose Interface Exchange Insurance Providers Payer name Policy type / Coverage type Covered green party ID Effective Begin Date Effective End Date [facility] Medicare Part B [id number] Unknown [facility] Medicare Part B [id number] Unknown Family history Father Diagnosis Age At [...] 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 Unknown Has nev er used illegal drugs 05/05/2011 Allergies, Adverse Reactions, Alerts Substance Reaction Codes Entered Date Inactivated Date Status noroxin RxNorm: 234672 05/05/2011 No Inactive Date Acti ve Levaquin RxNorm: 664550 10/11/2011 No Inactive Date Acti ve METRONIDAZOLE Unknown 05/05/2011 No Inactive Date Activ e trovan RxNorm: 935771 05/05/2011 No Inactive Date Acti ve MORPHINE SULFATE RxNorm: 34993 10/11/2011 No Inactive Date Active * NO KNOWN FOOD ALLERGIES Unknown 05/05/2011 No Inactiv e Date Active PREDNISONE RxNorm: 8640 05/05/2011 No Inactive Date Active cephalexin RxNorm: 571594 05/05/2011 No Inactive Date Acti ve azithromycin Unknown 10/11/2011 No Inactive Date Active theophylline RxNorm: 21606 05/05/2011 No Inactive Date Act pilar Problems [...] Start Date Stop Date Status Fill Instructions Accu-Chek Fastclix Lancet Drum RxNorm: USE 1 ROGE CET TO CHECK GLUCOSE ONCE DAILY 08/23/2022 01/14/2024 Active Jardiance 25 mg tablet RxNorm: 5831770 Take 1 Tablet(s) Oral daniela ry day 06/20/2022 10/17/2022 Active pantoprazole 40 mg tablet,delayed release RxNorm: 767836 Take 1 Tablet(s) Oral two times a day 06/05/2022 09/02/2022 Inactive glipizide 5 mg tablet RxNorm: 058459 Take 1 Tablet(s) Oral two times a day 03/03/2022 02/25/2023 Active triamcinolone acetonide 0.5 % topical cream RxNorm: 4131955 Apply 1 Topical three times a day 02/23/2022 03/04/2022 Inactive Bactrim DS 800 mg-160 mg tablet RxNorm: 470901 Take 1 T ablet(s) Oral two times a day 02/20/2022 02/26/2022 Inactive amiodarone 200 mg tablet RxNorm: 452320 Take 1/2 Tablet(s) Oral every day 02/12/2022 09/09/2022 Inactive amiodarone 200 mg tablet RxNorm: 160681 1/2 Tablet(s) Oral every da y 02/09/2022 02/09/2022 Inactive amiodarone 200 mg tablet RxNorm: 289946 Take 1/2 Tablet(s) Oral every day 02/09/2022 02/09/2022 Inactive Victoza 2-Abdirizak 0.6 mg/0.1 mL (18 mg/3 mL) subcutaneous pen injector RxNorm: 270429 Inject 1.8 Milligram(s) Subcutaneous every day 02/07/2022 0 02/01/2023 Active 1 month supply with needles amiodarone 100 mg tablet RxNorm: 256042 Take 1 Tablet(s) Oral e very day 02/07/2022 02/08/2022 Inactive this replaces the 20 0mg dose ondansetron 4 mg disintegrating tablet RxNorm: 355487 1 Tablet(s) Oral as needed 02/06/2022 No Stop Date Active Synthroid 75 mcg tablet RxNorm: 620700 Take 1 as direct ed take one tab m/w/f/sat/sun, no tabs tues/thurs 02/06/2022 06/30/2022 Inactive amiodarone 200 mg tablet RxNorm: 488780 Take 1 Tablet(s) Oral t wo times a day 02/06/2022 02/06/2022 Inactive ondansetron 4 mg disintegrating tablet RxNorm: 944628 T gisselle 1 Tablet(s) Oral four times a day as needed nausea 01/04/2022 02/02/2022 Inactive Accu-Chek Tracy Plus test strips RxNorm: USE 1 S TRIP TO CHECK GLUCOSE ONCE DAILY 12/08/2021 03/21/2025 Active Synthroid 75 mcg tablet RxNorm: 364001 TAKE 1 TABLET BY MOUTH O NCE DAILY 10/10/2021 02/05/2022 Inactive amiodarone 200 mg tablet RxNorm: 270826 Take 1 Tablet(s) Oral t wo times a day 09/13/2021 02/06/2022 Inactive diltiazem ER (XR/XT) 120 mg capsule,extended release 2 4 hr, controlled RxNorm: 049340 Take 1 Capsule(s) Oral every day 09/13/2021 01/03/2022 Inactive Accu-Chek Fastclix Lancet Drum RxNorm: USE 1 ROGE CET TO CHECK GLUCOSE ONCE DAILY 06/17/2021 06/17/2021 Inactive Accu-Chek Fastclix Lancet Drum RxNorm: USE 1 ROGE CET TO CHECK GLUCOSE ONCE DAILY 06/13/2021 06/13/2021 Inactive glipizide 5 mg tablet RxNorm: 055948 1 Tablet(s) Oral two times a day 04/05/2021 04/05/2021 Inactive Victoza 2-Abdirizak 0.6 mg/0.1 mL (18 mg/3 mL) subcutaneous pen injector RxNorm: 392342 Inject 1.2 Milligram(s) Subcutaneous every day 04/05/2021 0 02/06/2022 Inactive 1 month supply with needles Synthroid 75 mcg tablet RxNorm: 500636 TAKE 1 TABLET BY MOUTH O NCE DAILY 01/11/2021 04/10/2021 Inactive Victoza 2-Abdirizak 0.6 mg/0.1 mL (18 mg/3 mL) subcutaneous pen injector RxNorm: 407130 Milliliter(s) Subcutaneous as directed 0 .6mg daily x 1 week then 1.2mg daily 12/08/2020 12/07/2020 Inactive Trulicity is too expensive- wants to cano this victoza Victoza 2-Abdirizak 0.6 mg/0.1 mL (18 mg/3 mL) subcutaneous pen injector RxNorm: 439017 Milliliter(s) Subcutaneous as directed 0 .6mg daily x 1 week then 1.2mg daily 12/08/2020 04/04/2021 Inactive Trulicity is too expensive- wants to cano this victoza- please call her- qty sufficient for 30 days Trulicity 0.75 mg/0.5 mL subcutaneous pen injector RxNorm: 1 997260 INJECT 1 SYRINGE SUBCUTANEOUSLY ONCE A WEEK 10/13/2020 04/04/2021 Inactive Advair HFA 115 mcg-21 mcg/actuation aerosol inhaler RxNorm: 2739570 1 Puff(s) Inhalation two times a day 08/05/2020 No Stop Date Active Accu-Chek Tracy Plus test strips RxNorm: Miscell aneous USE 1 STRIP TO CHECK GLUCOSE ONCE DAILY 07/26/2020 07/26/2020 Inactive Accu-Chek Tracy Plus test strips RxNorm: Miscell aneous USE 1 STRIP TO CHECK GLUCOSE ONCE DAILY 07/26/2020 07/25/2020 Inactive Trulicity 0.75 mg/0.5 mL subcutaneous pen injector RxNorm: 1 069899 INJECT 1 SYRINGE SUBCUTANEOUSLY ONCE A WEEK 06/22/2020 10/12/2020 Inactive Accu-Chek Multiclix Lancet RxNorm: USE 1 LANCET TO CHECK GLUCOSE ONCE DAILY 04/26/2020 04/26/2020 Inactive glipizide 5 mg tablet RxNorm: 100811 1 Tablet(s) Oral two times a day 04/07/2020 04/01/2021 Inactive Synthroid 75 mcg tablet RxNorm: 841976 TAKE 1 TABLET BY MOUTH O NCE DAILY 04/07/2020 01/01/2021 Inactive Trulicity 0.75 mg/0.5 mL subcutaneous pen injector RxNorm: 1 871462 INJECT 1 SYRINGE SUBCUTANEOUSLY ONCE A WEEK 12/31/2019 06/15/2020 Inactive fluticasone 113 mcg-salmeterol 14 mcg/actuation [facility]: 3308967 INHALE 1 PUFF TWICE DAILY 12/31/2019 06/27/2020 Inactive Trulicity 0.75 mg/0.5 mL subcutaneous pen injector RxNorm: 1 768324 0.5 Milliliter(s) Subcutaneous once a week 09/09/2019 12/30/2019 Inactive Synthroid 75 mcg tablet RxNorm: 291042 TAKE 1 TABLET BY MOUTH O NCE DAILY 08/04/2019 04/06/2020 Inactive Symbicort 160 mcg-4.5 mcg/actuation HFA aerosol inhaler RxNo rm: 1406834 2 Inhalation two times a day 05/13/2019 08/04/2020 Inactive glipizide 5 mg tablet RxNorm: 901607 1 Tablet(s) Oral two times a day 05/08/2019 04/06/2020 Inactive doxycycline hyclate 100 mg tablet RxNorm: 1202438 1 Tablet(s) PO BI D 01/21/2019 02/03/2019 Inactive fluticasone 113 mcg-salmeterol 14 mcg/actuation breath [facility] Rx[facility]: 7635396 1 inhale INH BID 01/21/2019 08/18/2019 Inactive Synthroid 75 mcg tablet RxNorm: 050237 TAKE 1 TABLET BY MOUTH O NCE DAILY 10/28/2018 08/03/2019 Inactive Dulera 100 mcg-5 mcg/actuation HFA aerosol inhaler RxNorm: 1 057677 1 Puff(s) INH BID 09/23/2018 01/20/2019 Inactive Kenalog 40 mg/mL suspension for injection RxNorm: 6455758 Millil iter(s) Inj 09/23/2018 09/23/2018 Inactive albuterol sulfate 2.5 mg/3 mL (0.083 %) solution for n ebulization RxNorm: 051308 USE 1 VIAL IN NEBULIZER 4 TIMES DAILY NEEDED FOR ASTHMA 0 08/26/2018 No Stop Date Active Symbicort 160 mcg-4.5 mcg/actuation HFA aerosol inhaler RxNorm: 3053241 1 INH 06/07/2018 06/06/2018 Inactive Symbicort 160 mcg-4.5 mcg/actuation HFA aerosol inhaler RxNo rm: 3056845 1 INH BID 06/07/2018 07/06/2018 Inactive glipizide 5 mg tablet RxNorm: 624538 1/2 Tablet(s) PO B ID TAKE ONE-HALF TABLET BY MOUTH TWICE DAILY 05/27/2018 05/07/2019 Inactive Synthroid 75 mcg tablet RxNorm: 715995 1 Tablet(s) PO daily 018 05/14/2018 Inactive Synthroid 75 mcg tablet RxNorm: 455300 1 Tablet(s) PO daily 018 10/27/2018 Inactive Synthroid 88 mcg tablet RxNorm: 455528 TAKE 1 TABLET BY MOUTH O NCE DAILY 04/08/2018 05/14/2018 Inactive amiodarone 200 mg tablet RxNorm: 589666 1/2 Tablet(s) PO BID 201705/26/2018 Inactive Bactrim DS 800 mg-160 mg tablet RxNorm: 084976 1 Tablet(s) PO BID 0 01/03/2018 01/02/2018 Inactive take probiotic bid x 7 days Bactrim DS 800 mg-160 mg tablet RxNorm: 309144 1 Tablet(s) PO BID 0 01/03/2018 01/09/2018 Inactive take probiotic bid x 7 days nitrofurantoin 100 mg capsule RxNorm: 547595 1 Capsule(s) PO BID 01/06/2018 Inactive nitrofurantoin 100 mg capsule RxNorm: 615925 1 Capsule(s) PO BID 12/30/2017 Inactive nitrofurantoin 100 mg capsule RxNorm: 574792 1 Capsule(s) PO BID 12/30/2017 Inactive glipizide 5 mg tablet RxNorm: 768165 TAKE ONE-HALF TABLET BY MO UT TWICE DAILY 11/23/2017 05/26/2018 Inactive meclizine 25 mg tablet RxNorm: 641011 1 Tablet(s) PO Q6 PRN 018 No Stop Date Active Kenalog 40 mg/mL suspension for injection RxNorm: 6639874 1.5 Mi lliliter(s) Inj 10/30/2017 10/30/2017 Inactive Augmentin 875 mg-125 mg tablet RxNorm: 396504 1 Tablet(s) PO BID 11/05/2017 Inactive Synthroid 88 mcg tablet RxNorm: 000840 TAKE ONE TABLET BY MOUTH ONCE DAILY 10/15/2017 04/07/2018 Inactive metformin 500 mg tablet RxNorm: 207640 TAKE ONE TABLET BY MOUTH WITH BREAKFAST AND ONE TABLET WITH LUNCH AND TWO TABLETS WITH SUPPER 10/15/20172017 Inactive albuterol sulfate 2.5 mg/3 mL (0.083 %) solution for n ebulization RxNorm: 980008 USE ONE VIAL IN NEBULIZER 4 TIMES DAILY NEEDED FOR ASTHMA 08/16/2017 08/25/2018 Inactive Plavix 75 mg tablet RxNorm: 622825 TAKE ONE TABLET BY MOUTH ONC E DAILY 06/25/2017 06/24/2017 Inactive Plavix 75 mg tablet RxNorm: 882286 1 Tablet(s) PO daily TAKE ONE TABLET BY MOUTH ONCE DAILY 06/25/2017 09/19/2017 Inactive acyclovir 800 mg tablet RxNorm: 802196 1 Tablet(s) PO QID 05/15/2017 05/14/2017 Inactive acyclovir 800 mg tablet RxNorm: 096330 1 Tablet(s) PO QID 05/15/2017 05/21/2017 Inactive tramadol 50 mg tablet RxNorm: 159778 1 Tablet(s) PO TID 05/15/2017 Inactive ketorolac 60 mg/2 mL intramuscular solution RxNorm: 165688 2 Mi lliliter(s) IM 05/14/2017 05/14/2017 Inactive Augmentin 875 mg-125 mg tablet RxNorm: 189425 1 Tablet(s) PO BID 05/23/2017 Inactive Synthroid 88 mcg tablet RxNorm: 393253 TAKE ONE TABLET BY MOUTH ONCE DAILY; NEED THYROID LABS DONE 04/16/2017 10/12/2017 Inactive Kenalog 40 mg/mL suspension for injection RxNorm: 3445154 Millil iter(s) Inj 03/06/2017 03/06/2017 Inactive metformin 500 mg tablet RxNorm: 787362 1 Tablet(s) UD 1 tab at breakfast, 1tab at lunch, 2 tab at supper 03/06/2017 09/01/2017 Inactive glipizide 5 mg tablet RxNorm: 093352 TAKE ONE-HALF TABLET BY MO UT TWICE DAILY 02/23/2017 11/19/2017 Inactive Synthroid 88 mcg tablet RxNorm: 170558 Tablet(s) PO LESLEE E ONE TABLET BY MOUTH DAILY 01/17/2017 04/15/2017 Inactive Needs thyroid la bs done Plavix 75 mg tablet RxNorm: 933249 TAKE ONE TABLET BY MOUTH ONC E DAILY 12/25/2016 06/22/2017 Inactive Kenalog 40 mg/mL suspension for injection RxNorm: 0074362 1.5 Mi lliliter(s) Inj 09/04/2016 09/04/2016 Inactive Janumet XR 100 mg-1,000 mg tablet,extended release RxNorm: 1 334707 1 Tablet(s) PO daily 09/04/2016 03/02/2017 Inactive glipizide 5 mg tablet RxNorm: 144123 TAKE ONE-HALF TABLET BY MO UT TWICE DAILY 08/24/2016 02/19/2017 Inactive Janumet XR 50 mg-1,000 mg tablet,extended release RxNorm: 12 66706 TAKE ONE TABLET BY MOUTH ONCE DAILY 05/29/2016 09/03/2016 Inactive metoprolol tartrate 25 mg tablet RxNorm: 079131 1/4 Tablet(s) PO BI D 05/01/2016 05/29/2016 Inactive glipizide 5 mg tablet RxNorm: 292623 TAKE ONE-HALF TABLET BY MO UT TWICE DAILY 02/21/2016 08/18/2016 Inactive ProAir HFA 90 mcg/actuation aerosol inhaler RxNorm: 181070 2 Puff(s) INH PRN as needed ASTHMA 02/03/2016 03/03/2016 Inactive albuterol sulfate 2.5 mg/3 mL (0.083 %) solution for n ebulization RxNorm: 212896 1 Milliliter(s) INH QID as needed ASTHMA 02/03/2016 06/01/2016 Inactive Accu-Chek Active Test strips RxNorm: 1 test Miscellaneous homer y 02/03/2016 07/25/2020 Inactive DX250.00 Janumet XR 50 mg-1,000 mg tablet,extended release RxNorm: 12 12224 1 Tablet(s) PO daily 02/03/2016 05/28/2016 Inactive Augmentin 875 mg-125 mg tablet RxNorm: 948251 1 Tablet(s) PO BID 02/12/2016 Inactive sucralfate 1 gram tablet RxNorm: 060207 1 Tablet(s) PO QID - take 30 minutes before meals and before supper 12/21/2015 02/04/2019 Inactive metformin ER 500 mg tablet,extended release 24 hr RxNorm: 86 0975 1 Tablet(s) PO BID 12/21/2015 02/02/2016 Inactive digoxin 250 mcg tablet RxNorm: 775071 1 Tablet(s) PO daily 12/21/19 16 01/20/2018 Inactive Synthroid 88 mcg tablet RxNorm: 795537 Tablet(s) PO LESLEE E ONE TABLET BY MOUTH DAILY 12/20/2015 01/16/2017 Inactive Plavix 75 mg tablet RxNorm: 931749 1 Tablet(s) PO daily 12/20/2015 Inactive Kenalog 40 mg/mL suspension for injection RxNorm: 8234290 1 Mill iliter(s) Inj 11/11/2015 11/11/2015 Inactive Kenalog 40 mg/mL suspension for injection RxNorm: 8827174 1 Mill iliter(s) Inj 10/25/2015 10/25/2015 Inactive metformin 500 mg tablet RxNorm: 391892 2 Tablet(s) PO BID 07/16/2015 12/20/2015 Inactive metformin 500 mg tablet RxNorm: 629640 TAKE TWO TABLETS BY MOUT H TWICE DAILY 07/16/2015 12/20/2015 Inactive albuterol sulfate 2.5 mg/3 mL (0.083 %) solution for n ebulization RxNorm: 973931 1 Milliliter(s) INH QID as needed ASTHMA 07/14/2015 11/10/2015 Inactive glipizide 5 mg tablet RxNorm: 730408 1/2 Tablet(s) PO BID 02/03/2015 01/28/2016 Inactive Symbicort 160 mcg-4.5 mcg/actuation HFA aerosol inhaler RxNorm: 6916000 1 INH 01/06/2015 06/06/2018 Inactive metformin 500 mg tablet RxNorm: 615986 2 Tablet(s) PO BID 12/22/2014 06/19/2015 Inactive Plavix 75 mg tablet RxNorm: 671951 1 Tablet(s) PO daily 12/02/2014 Inactive note directions of one per day Synthroid 88 mcg tablet RxNorm: 703932 1 Tablet(s) PO d aily TAKE ONE TABLET BY MOUTH DAILY 12/02/2014 04/07/2018 Inactive Accu-Chek Active Test strips RxNorm: 1 test Miscellaneous homer y 08/17/2014 02/02/2016 Inactive DX250.00 Kenalog 40 mg/mL suspension for injection RxNorm: 0623009 Millil iter(s) Inj 08/17/2014 08/17/2014 Inactive doxycycline hyclate 100 mg tablet RxNorm: 591071 1 Tablet(s) PO BID 08/17/2014 08/26/2014 Inactive albuterol sulfate 2.5 mg/3 mL (0.083 %) solution for n ebulization RxNorm: 149374 1 Milliliter(s) INH QID as needed ASTHMA 08/17/2014 08/16/2014 Inactive albuterol sulfate 2.5 mg/3 mL (0.083 %) solution for n ebulization RxNorm: 233828 1 Milliliter(s) INH QID as needed ASTHMA 08/17/2014 12/14/2014 Inactive doxycycline hyclate 100 mg tablet RxNorm: 752959 1 Tablet(s) PO BID 08/17/2014 08/16/2014 Inactive Accu-Chek Multiclix Lancet RxNorm: 1 Miscellaneo us daily TEST BLOOD SUGAR EVERY DAY 08/17/2014 09/10/2015 Inactive DX 250.00 metformin 500 mg tablet RxNorm: 183606 TAKE TWO TABLETS BY MOUT H TWICE DAILY 06/23/2014 09/20/2014 Inactive metformin 500 mg tablet RxNorm: 118292 2 Tablet(s) PO BID 06/22/2014 12/18/2014 Inactive Bactrim DS 800 mg-160 mg tablet RxNorm: 212103 1 Tablet(s) PO BID 1 07/11/2013 05/17/2014 Inactive Bactrim DS 800 mg-160 mg tablet RxNorm: 678734 1 Tablet(s) PO BID 1 07/11/2013 05/10/2014 Inactive Kenalog 40 mg/mL suspension for injection RxNorm: 1605114 Millil iter(s) Inj 04/13/2014 04/13/2014 Inactive Accu-Chek Active Test strips RxNorm: 1 TEST MISCELLANEOUS BID 04/06/2014 10/22/2014 Inactive glipizide 5 mg tablet RxNorm: 840593 1/2 Tablet(s) PO BID 03/03/2014 02/02/2015 Inactive Synthroid 88 mcg tablet RxNorm: 791883 1 Tablet(s) PO d aily TAKE ONE TABLET BY MOUTH DAILY 12/11/2013 12/01/2014 Inactive Plavix 75 mg tablet RxNorm: 443636 1 Tablet(s) PO daily 12/11/2013 Inactive note directions of one per day glipizide 5 mg tablet RxNorm: 515522 1/2 Tablet(s) PO BID 11/10/2013 03/02/2014 Inactive Lipitor 10 mg tablet RxNorm: 589320 1 Tablet(s) PO daily 11/10/2013 0 12/21/2014 Inactive Accu-Chek Active Test strips RxNorm: strip misce llaneous TEST BLOOD SUGAR EVERY DAY 11/03/2013 07/25/2020 Inactive Accu-Chek Multiclix Lancet RxNorm: misc miscella neous TEST BLOOD SUGAR EVERY DAY 08/07/2013 08/16/2014 Inactive digoxin 125 mcg tablet RxNorm: 764456 1 Tablet(s) PO daily 08/05/19 14 10/28/2014 Inactive Accu-Chek Active Test strips RxNorm: strip misce llaneous TEST BLOOD SUGAR EVERY DAY 08/05/2013 07/25/2020 Inactive metformin 500 mg tablet RxNorm: 202138 2 Tablet(s) PO BID 06/12/2013 06/21/2014 Inactive metformin 500 mg tablet RxNorm: 162510 2 Tablet(s) PO BID 05/12/2013 06/11/2013 Inactive metformin 500 mg tablet RxNorm: 748087 Tablet(s) PO LESLEE E ONE & ONE-HALF TABLETS BY MOUTH TWICE DAILY 04/10/2013 05/11/2013 Inactive Synthroid 88 mcg tablet RxNorm: 001620 Tablet(s) PO LESLEE E ONE TABLET BY MOUTH DAILY 01/07/2013 12/19/2015 Inactive Synthroid 88 mcg tablet RxNorm: 095695 1 Tablet(s) PO d aily TAKE ONE TABLET BY MOUTH DAILY 01/06/2013 12/10/2013 Inactive Plavix 75 mg tablet RxNorm: 420124 1 Tablet(s) PO daily 12/09/2012 Inactive note directions of one per day Lipitor 80 mg tablet RxNorm: 094644 Tablet(s) PO TAKE 1 TABLET BY MOUTH EVERY DAY 10/28/2012 11/09/2013 Inactive Synthroid 88 mcg tablet RxNorm: 527614 Tablet(s) PO LESLEE E ONE TABLET BY MOUTH DAILY 10/07/2012 10/06/2012 Inactive Synthroid 88 mcg tablet RxNorm: 605194 1 Tablet(s) PO d aily TAKE ONE TABLET BY MOUTH DAILY 10/07/2012 01/05/2013 Inactive Kenalog 40 mg/mL Susp for Injection RxNorm: 3595822 1 Milliliter (s) IM 10/07/2012 10/07/2012 Inactive digoxin 250 mcg tablet RxNorm: 4083409 1/2 Tablet(s) PO daily 07/1508/04/2013 Inactive Synthroid 88 mcg tablet RxNorm: 935307 Tablet(s) PO LESLEE E ONE TABLET BY MOUTH DAILY 06/28/2012 10/06/2012 Inactive Accu-Chek Multiclix Lancet RxNorm: Misc Miscellaneous 06/05/2012 0 07/25/2020 Inactive TEST BLOOD SUGAR EVERY DAY Accu-Chek Active Test Strips RxNorm: Strip Miscellaneous 2 07/25/2020 Inactive TEST BLOOD SUGAR EVERY DAY Lipitor 80 mg tablet RxNorm: 232695 1/2 Tablet(s) PO daily 03/28/20 12 03/27/2012 Active TAKE 1 TABLET BY MOUTH EVERY DAY metformin 500 mg tablet RxNorm: 477717 1.5 Tablet(s) PO BID 012 04/09/2013 Inactive Lipitor 80 mg tablet RxNorm: 079639 1/2 Tablet(s) PO 03/28/201208/16 Inactive TAKE 1 TABLET BY MOUTH EVERY DAY Lipitor 80 mg tablet RxNorm: 915047 1/2 Tablet(s) PO daily 03/28/20 12 03/27/2012 Active TAKE 1 TABLET BY MOUTH EVERY DAY Influenza Virus Vaccine 0.5 mL RxNorm: IM 03/26/2012 03/26/20 12 Inactive Pneumovax 23 25 mcg/0.5 mL Injection RxNorm: 2672818 Milliliter( s) Inj 03/26/2012 03/26/2012 Inactive metformin 500 mg tablet RxNorm: 073504 1 Tablet(s) PO BID 11/27/2011 03/27/2012 Inactive Plavix 75 mg tablet RxNorm: 781819 1 Tablet(s) PO daily 11/01/2011 Inactive note directions of one per day Lipitor 80 mg tablet RxNorm: 781138 Tablet(s) PO 10/18/2011 03/27/2012 Inactive TAKE 1 TABLET BY MOUTH EVERY DAY Protonix 40 mg Tab RxNorm: 903388 1 Tablet(s) PO BID 10/11/201112/19 Inactive Accu-Chek Active Test Strips RxNorm: 1 test Miscellaneous homer y 10/04/2011 08/16/2014 Inactive Carafate 1 gram Tab RxNorm: 781503 1 Tablet(s) PO QID 10/02/201110/08 Inactive Carafate 1 gram Tab RxNorm: 811082 1 Tablet(s) PO TID 09/29/201109/07 Inactive Carafate 1 gram Tab RxNorm: 490458 1 Tablet(s) PO TID 09/29/201109/07 Inactive Kenalog 40 mg/mL Susp for Injection RxNorm: 3285926 2 Milliliter (s) Inj 07/31/2011 07/31/2011 Inactive Synthroid 88 mcg tablet RxNorm: 105863 1 Tablet(s) PO daily 011 10/11/2011 Inactive Accu-Chek Active Test Strips RxNorm: 1 test Miscellaneous BID 06/05/2011 10/03/2011 Inactive Accu-Chek Multiclix Lancet RxNorm: 1 test Miscellaneous BID 09/24/2011 Inactive Accu-Chek Active Test strips RxNorm: 1 test Miscellaneous BID 06/02/2011 06/04/2011 Inactive Bactrim DS 800 mg-160 mg Tab RxNorm: 571950 1 Tablet(s) PO BID 05/0905/31/2011 Inactive metformin 500 mg Tab RxNorm: 520988 1 Tablet(s) PO TID 05/05/2011 Inactive Influenza Virus Vaccine 0.5 mL RxNorm: IM 05/02/2011 05/02/20 11 Inactive albuterol sulfate HFA 90 mcg/Actuation Aerosol Inhaler RxNor m: 454996 1 Puff(s) INH PRN prn shortness of breath 05/05/2011 Active Xarelto 20 mg tablet RxNorm: 4252708 1 Tablet(s) PO daily 09/20/2017 Active multivitamin chewable tablet RxNorm: 1 Tablet(s) PO daily 12/21/2015 Active Fish Oil 300 mg-1,000 mg capsule RxNorm: 750892 1 Capsule(s) PO occasional 12/21/2015 Active hyoscyamine 0.125 mg sublingual tablet RxNorm: 9684872 1 Tablet( s) SL Q6 11/01/2016 Active simvastatin 20 mg tablet RxNorm: 175197 1/2 Tablet(s) PO daily 12/0712/20/2015 Inactive Zantac 75 75 mg Tab RxNorm: 458266 2 Tablet(s) PO daily 12/21/2015 Inactive Protonix 40 mg Tab RxNorm: 209481 1 Tablet(s) PO daily 10/11/201109/2011 Inactive Fish Oil 1,000 mg capsule RxNorm: 3 Capsule(s) PO daily 12/21/2015 12/20/2015 Inactive amiodarone 400 mg tablet RxNorm: 969735 1 Tablet(s) PO daily 201712/09/2017 Inactive digoxin 125 mcg tablet RxNorm: 2777444 1 Tablet(s) PO daily 014 08/04/2013 Inactive Brilinta 90 mg Tab RxNorm: 0353558 1 Tablet(s) PO daily 10/11/2011 Inactive Fish Oil 1,000 mg Cap RxNorm: 3 Capsule(s) PO daily 12/21/2015 Inactive Flintstones Complete 18 mg iron chewable tablet RxNorm: 2 Tablet(s) PO daily 12/21/2015 12/20/2015 Inactive Niaspan Extended-Release 500 mg 24 hr Tab RxNorm: 3280325 1 Tabl et(s) PO daily 09/25/2011 09/24/2011 Inactive samples tramadol 50 mg tablet RxNorm: 741835 1 Tablet(s) PO TID 05/15/2017 Inactive aspirin 81 mg Cap, Delayed Release RxNorm: 371205 Capsule(s) PO daily 05/02/2012 05/01/2012 Inactive pantoprazole 40 mg tablet,delayed release RxNorm: 270215 1 Tabl et(s) PO daily 05/27/2018 05/26/2018 Inactive metformin 500 mg Tab RxNorm: 280349 1 Tablet(s) PO BID 05/05/2011 Inactive Singulair 10 mg tablet RxNorm: 343686 1 Tablet(s) PO daily 05/27/20 18 05/26/2018 Inactive Prilosec OTC 20 mg tablet,delayed release RxNorm: 699345 1 Tabl et(s) PO daily 11/01/2016 10/31/2016 Inactive Zantac 150 mg Tab RxNorm: 268361 1 Tablet(s) PO BID 10/11/20112011 Inactive Synthroid 88 mcg Tab RxNorm: 081578 1 Tablet(s) PO daily 06/06/201108/05/2010 Inactive Plavix 75 mg Tab RxNorm: 324266 1 Tablet(s) PO daily 11/01/201110/30 Inactive amiodarone 200 mg tablet RxNorm: 588536 1 Tablet(s) PO BID 01/22/20 18 01/20/2018 Inactive Cartia XT 120 mg capsule,extended release RxNorm: 066141 1 Capsule(s) PO daily and 1 QPM if HR above 100 Dr Aguilar manages 05/27/2018 05/26/2018 Inact pilar aspirin 81 mg Cap, Delayed Release RxNorm: 624674 1 Capsule(s) PO daily 10/04/2011 10/01/2011 Inactive Lipitor 80 mg Tab RxNorm: 247547 1 Tablet(s) PO daily 10/18/201110/07 Inactive Symbicort 160 mcg-4.5 mcg/Actuation HFA Aerosol Inhaler RxNorm: 2129769 1 INH 01/06/2015 01/05/2015 Inactive Medication Administered Medication Codes Instructions Start Date Status Kenalog 40 mg/mL suspension for injection RxNorm: 1869494 Millilite r 09/23/2018 No longer Active Kenalog 40 mg/mL suspension for injection RxNorm: 7739553 1.5Mil liliter 10/30/2017 No longer Active ketorolac 60 mg/2 mL intramuscular solution RxNorm: 750666 2Mil liliter 05/14/2017 No longer Active Kenalog 40 mg/mL suspension for injection RxNorm: 9292243 Millilite r 03/06/2017 No longer Active Kenalog 40 mg/mL suspension for injection RxNorm: 5811610 1.5Mil liliter 09/04/2016 No longer Active Kenalog 40 mg/mL suspension for injection RxNorm: 0704371 1Milli liter 11/11/2015 No longer Active Kenalog 40 mg/mL suspension for injection RxNorm: 7121896 1Milli liter 10/25/2015 No longer Active Kenalog 40 mg/mL suspension for injection RxNorm: 6536553 Millilite r 08/17/2014 No longer Active Kenalog 40 mg/mL suspension for injection RxNorm: 3126912 Millilite r 04/13/2014 No longer Active Kenalog 40 mg/mL Susp for Injection RxNorm: 9857830 1Milliliter No longer Active Influenza Virus Vaccine 0.5 mL RxNorm: 03/26/2012 No longer Active Pneumovax 23 25 mcg/0.5 mL Injection RxNorm: 0566529 Milliliter 0 03/26/2012 No longer Active Kenalog 40 mg/mL Susp for Injection RxNorm: 5844877 2Milliliter No longer Active Influenza Virus Vaccine [...] Result Date S ervice Location Comp Metabolic Dqu990 NA 142 mEq/L 10/09/2022 Unkn own Comp Metabolic Tud225 K 4.1 mEq/L 10/09/2022 Unkn own Comp Metabolic Qvb488 CL 104 mEq/L 10/09/2022 Unkn own Comp Metabolic Fav684 CO2 28 mEq/L 10/09/2022 Unkn own Comp Metabolic Ogk129 ANION GAP 14 10/09/2022 Unkn own Comp Metabolic Epn384 GLUCOSE 154 mg/dL 10/09/2022 Unkn own Comp Metabolic Lty672 Creat 0.7 mg/dL 10/09/2022 Unkn own Comp Metabolic Nvq425 eGFR 82 ml/min/1.73m2 10/10/19 23 Unknown Comp Metabolic Fbl082 BUN 15 mg/dL 10/09/2022 Unkn own Comp Metabolic Umu795 B/C Ratio 20.8 Ratio 10/09/2022 Unk nown Comp Metabolic Ghd648 CALCIUM 8.9 mg/dL 10/09/2022 Unkn own Comp Metabolic Xbb205 ALK PHOS 62 U/L 10/09/2022 Unkn own Comp Metabolic Qig982 AST(SGOT) 22 U/L 10/09/2022 Unkn own Comp Metabolic Jrv531 ALT(SGPT) 21 U/L 10/09/2022 Unkn own Comp Metabolic Hcx580 BILI T 0.9 mg/dL 10/09/2022 Unkn own Comp Metabolic Avm002 ALBUMIN 4.0 g/dL 10/09/2022 Unkn own Comp Metabolic Lmj423 TPRO 6.0 g/dL 10/09/2022 Unkn own Comp Metabolic Jky028 GLOB 2.0 g/dL 10/09/2022 Unkn own Comp Metabolic Brd092 A/G Ratio 2.0 Ratio 10/09/2022 Unkn own Comp Metabolic Eyg679 Osmo 287 mOsmo 10/09/2022 Unkn own Free T4 Dbj463 FREE T4 1.46 ng/dL 10/09/2022 Unknown Cbc [...] 10/10/19 23 Unknown Cbc With Differential Ord2 [place]% 12.0 % 10/10/19 23 Unknown Cbc With [...] K/ul 023 Unknown Cbc With Differential Ord2 [place] ABS# 0.5 K/ul 10/10/19 23 Unknown Cbc [...] IS) 3.37 uIU/mL 10/09/2022 Unkn own %Hba1C Xas421 % HbA1c 78647-0 9.0 % 10/09/2022 Unknown %Hba1C Hif030 Gluc Ave 212 mg/dL 10/09/2022 Unknown %Hba1C Zgg926 % HbA1c 10193-0 8.3 % 06/13/2022 Unknown %Hba1C Toa053 Gluc Ave 192 mg/dL 06/13/2022 Unknown Cbc [...] 06/13/20 22 Unknown Cbc With Differential Ord2 [place]% 13.3 % 06/13/20 22 Unknown Cbc With [...] K/ul 022 Unknown Cbc With Differential Ord2 [place] ABS# 0.6 K/ul 06/13/20 22 Unknown Cbc [...] C/HDL 4.2 Ratio 06/13/2022 Unknown Comp Metabolic Xnj165 NA 140 mEq/L 06/13/2022 Unkn own Comp Metabolic Qgn092 K 4.3 mEq/L 06/13/2022 Unkn own Comp Metabolic Tvz017 CL 102 mEq/L 06/13/2022 Unkn own Comp Metabolic Vap679 CO2 30.0 mEq/L 06/13/2022 Unk nown Comp Metabolic Wkb769 ANION GAP 12 06/13/2022 Un[facility] own Comp Metabolic Mdo896 GLUCOSE 170 mg/dL 06/13/2022 Unkn own Comp Metabolic Ldm964 Creat 0.8 mg/dL 06/13/2022 Unkn own Comp Metabolic Clf649 eGFR 79 ml/min/1.73m2 06/13/20 22 Unknown Comp Metabolic Mto872 BUN 15 mg/dL 06/13/2022 Unkn own Comp Metabolic Cyx736 B/C Ratio 20.0 Ratio 06/13/2022 Unk nown Comp Metabolic Gia287 CALCIUM 9.0 mg/dL 06/13/2022 Unkn own Comp Metabolic Thb429 ALK PHOS 68 U/L 06/13/2022 Unkn own Comp Metabolic Fve760 AST(SGOT) 24 U/L 06/13/2022 Unkn own Comp Metabolic Ton346 ALT(SGPT) 19 U/L 06/13/2022 Unkn own Comp Metabolic Zeo158 BILI T 0.9 mg/dL 06/13/2022 Unkn own Comp Metabolic Cpf121 ALBUMIN 4.1 g/dL 06/13/2022 Unkn own Comp Metabolic Aqx987 TPRO 6.5 g/dL 06/13/2022 Unkn own Comp Metabolic Smt580 GLOB 2.4 g/dL 06/13/2022 Unkn own Comp Metabolic Nun772 A/G Ratio 1.7 Ratio 06/13/2022 Unkn own Comp Metabolic Joz744 Osmo 284 mOsmo 06/13/2022 Unkn own Tsh Ord6 TSH (3rd IS) 4.97 uIU/mL 06/13/2022 Unkn own Free T4 Pws176 FREE T4 1.23 ng/dL 06/13/2022 Unknown Comp Metabolic Jxm757 NA 140 mEq/L 02/01/2022 Un[facility] own Comp Metabolic Glj345 K 4.3 mEq/L 02/01/2022 Unkn own Comp Metabolic Mea375 CL 103 mEq/L 02/01/2022 Unkn own Comp Metabolic Vuo472 CO2 29.0 mEq/L 02/01/2022 Unk nown Comp Metabolic Qhu831 ANION GAP 12 02/01/2022 Unkn own Comp Metabolic Ain865 GLUCOSE 171 mg/dL 02/01/2022 Unkn own Comp Metabolic Dae019 Creat 0.9 mg/dL 02/01/2022 Unkn own Comp Metabolic Jrl721 eGFR 61 ml/min/1.73m2 02/02/20 22 Unknown Comp Metabolic Ybx701 BUN 15 mg/dL 02/01/2022 Unkn own Comp Metabolic Msz661 B/C Ratio 16.0 Ratio 02/01/2022 Unk nown Comp Metabolic Wzp196 CALCIUM 9.2 mg/dL 02/01/2022 Unkn own Comp Metabolic Xud348 ALK PHOS 68 U/L 02/01/2022 Unkn own Comp Metabolic Lrk252 AST(SGOT) 22 U/L 02/01/2022 Unkn own Comp Metabolic Lzy422 ALT(SGPT) 25 U/L 02/01/2022 Unkn own Comp Metabolic Fkk392 BILI T 1.0 mg/dL 02/01/2022 Unkn own Comp Metabolic Otx374 ALBUMIN 4.1 g/dL 02/01/2022 Unkn own Comp Metabolic Dso160 TPRO 6.5 g/dL 02/01/2022 Unkn own Comp Metabolic Whg447 GLOB 2.4 g/dL 02/01/2022 Unkn own Comp Metabolic Yfq648 A/G Ratio 1.7 Ratio 02/01/2022 Unkn own Comp Metabolic Ist209 Osmo 284 mOsmo 02/01/2022 Unkn own Tsh Ord6 TSH (3rd IS) 2.25 uIU/mL 02/01/2022 Unkn own Free T4 Opg929 FREE T4 1.68 ng/dL 02/01/2022 Unknown Cbc [...] 02/02/20 22 Unknown Cbc With Differential Ord2 [place]% 10.9 % 02/02/20 22 Unknown Cbc With [...] K/ul 022 Unknown Cbc With Differential Ord2 [place] ABS# 0.6 K/ul 02/02/20 22 Unknown Cbc [...] Ord30 C/HDL 3.7 Ratio 02/01/2022 Unknown %Hba1C Zlo107 % HbA1c 56006-0 8.2 % 02/01/2022 Unknown %Hba1C Vjg526 Gluc Ave 189 mg/dL 02/01/2022 Unknown MEAN GLUC 6856301 Calc Mean Gluc 140 mg/dL 03/28/2021 Unkn own A1C HPLC 3630722 Hgb A1c 33523-9 6.5 % 03/28/2021 Unknown FREE T4 1045121 T4 Free 1.06 ng/dL 03/25/2021 Unknown TSH 1290521 TSH 0.869 uIU/mL 03/25/2021 Unknow n LIPID GRP CHOLESTEROL 182 mg/dL 03/25/2021 Unknown LIPID GRP [id number] Triglyceride 75 mg/dL 03/25/2021 Unknow n LIPID GRP HDL CHOLESTEROL 50 mg/dL 03/25/2021 Unk nown LIPID GRP 8308496 Chol/HDL Ratio 3.64 ratio 03/25/2021 Unk nown LIPID GRP NON-HDL Chol 132 mg/dL 03/25/2021 Unknow n LIPID GRP LDL Cholesterol 117 mg/dL 03/25/2021 Unk nown GFR CALC 4631224 GFR Non Afr Amr >60 mL/min 03/25/2021 Un known GFR CALC 8388426 GFR Afr Amr >60 mL/min 03/25/2021 Unknow n CBC 1196020 WBC 6.5 10e9/L 03/25/2021 Unknown CBC 8341673 RBC 4.96 10e12/L 03/25/2021 Unknow n CBC 0153331 HEMOGLOBIN 14.6 g/dL 03/25/2021 Unknown CBC 2553189 HEMATOCRIT 44.7 % 03/25/2021 Unknown CBC 8054631 MCV 90.1 fL 03/25/2021 Unknown CBC 1821369 MCH 29.4 pg 03/25/2021 Unknown CBC 0331557 MCHC 32.7 g/dL 03/25/2021 Unknown CBC 0383187 PLATELET COUNT 251 10e9/L 03/25/2021 Unk nown CBC 6529225 Mean Plt Volume 10.2 fL 03/25/2021 Unk nown CBC 9605932 Neut Auto 59.7 % 03/25/2021 Unknown CBC 0168682 Lymph Auto 21.0 % 03/25/2021 Unknown CBC 8703299 [place] Auto 8.8 % 03/25/2021 Unknown CBC 3523491 RDW 14.6 % 03/25/2021 Unknown CBC 6098202 Eos Auto 9.3 % 03/25/2021 Unknown CBC 3925226 Baso Auto 1.2 % 03/25/2021 Unknown CBC 2397588 Neutrophil Abs 3.88 10e9/L 03/25/2021 Un known CBC 8391839 Lymphocyte Abs 1.36 10e9/L 03/25/2021 Un known CBC 7854570 Monocyte Abs 0.57 10e9/L 03/25/2021 Unkn own CBC 2308026 Eosinophil Abs 0.60 10e9/L 03/25/2021 Un known CBC 2332855 RDW-SD 47.2 fL 03/25/2021 Unknown CBC 3824198 Basophil Abs 0.08 10e9/L 03/25/2021 Unkn own CHEM 14 1169101 AST 20 U/L 03/25/2021 Unknown CHEM 14 6987775 ALT 18 U/L 03/25/2021 Unknown CHEM 14 0991842 BUN 17 mg/dL 03/25/2021 Unknown CHEM 14 6955924 ALBUMIN 3.9 g/dL 03/25/2021 Unknown CHEM 14 7563238 CHLORIDE 104 mmol/L 03/25/2021 Unknown CHEM 14 9991018 Bili Total 0.8 mg/dL 03/25/2021 Unknown CHEM 14 9393486 ALK PHOS 69 U/L 03/25/2021 Unknown CHEM 14 4887163 SODIUM 138 mmol/L 03/25/2021 Unknown CHEM 14 0880855 CREATININE 0.76 mg/dL 03/25/2021 Unknown CHEM 14 4848017 CALCIUM 9.5 mg/dL 03/25/2021 Unknown CHEM 14 9549709 POTASSIUM 4.2 mmol/L 03/25/2021 Unknown CHEM 14 7709154 TOTAL PROTEIN 7.0 g/dL 03/25/2021 Unkno wn CHEM 14 2664261 GLUCOSE 133 mg/dL 03/25/2021 Unknown CHEM 14 9909207 Bicarbonate 26 mmol/L 03/25/2021 Unknown CHEM 14 3180547 AGAP 8 mmol/L 03/25/2021 Unknown FREE T4 1020357 T4 Free 1.15 ng/dL 11/19/2020 Unknown A1C HPLC 4117245 Hgb A1c 89806-2 7.0 % 11/19/2020 Unknown LIPID GRP 0510269 CHOLESTEROL 205 mg/dL 11/19/2020 Unknown LIPID GRP 4715704 Triglyceride 100 mg/dL 11/19/2020 Unknow n LIPID GRP 8033425 HDL CHOLESTEROL 54 mg/dL 11/19/2020 Unk nown LIPID GRP 5389080 Chol/HDL Ratio 3.80 ratio 11/19/2020 Unk nown LIPID GRP 7552512 NON-HDL Chol 151 mg/dL 11/19/2020 Unknow n LIPID GRP 5950784 LDL Cholesterol 131 mg/dL 11/19/2020 Unk nown MEAN GLUC 5249246 Calc Mean Gluc 154 mg/dL 11/19/2020 Unkn own GFR CALC 7046320 GFR Non Afr Amr >60 mL/min 11/19/2020 Un known GFR CALC 6821304 GFR Afr Amr >60 mL/min 11/19/2020 Unknow n TSH 9936531 TSH 0.638 uIU/mL 11/19/2020 Unknow n CHEM 14 1625768 AST 22 U/L 11/19/2020 Unknown CHEM 14 3576035 ALT 20 U/L 11/19/2020 Unknown CHEM 14 9480759 BUN 18 mg/dL 11/19/2020 Unknown CHEM 14 4379510 ALBUMIN 4.1 g/dL 11/19/2020 Unknown CHEM 14 8510920 CHLORIDE 104 mmol/L 11/19/2020 Unknown CHEM 14 4971396 Bili Total 0.9 mg/dL 11/19/2020 Unknown CHEM 14 6454693 ALK PHOS 72 U/L 11/19/2020 Unknown CHEM 14 3364847 SODIUM 141 mmol/L 11/19/2020 Unknown CHEM 14 0130868 CREATININE 0.80 mg/dL 11/19/2020 Unknown CHEM 14 4679654 CALCIUM 9.6 mg/dL 11/19/2020 Unknown CHEM 14 6573739 POTASSIUM 4.4 mmol/L 11/19/2020 Unknown CHEM 14 6218592 TOTAL PROTEIN 7.2 g/dL 11/19/2020 Unkno wn CHEM 14 7269758 GLUCOSE 134 mg/dL 11/19/2020 Unknown CHEM 14 5120145 Bicarbonate 31 mmol/L 11/19/2020 Unknown CHEM 14 9559518 AGAP 6 mmol/L 11/19/2020 Unknown LIPID GRP 2237286 CHOLESTEROL 199 mg/dL 03/29/2020 Unknown LIPID GRP 5600676 Triglyceride 95 mg/dL 03/29/2020 Unknow n LIPID GRP 1257424 HDL CHOLESTEROL 48 mg/dL 03/29/2020 Unk nown LIPID GRP 0568536 Chol/HDL Ratio 4.15 ratio 03/29/2020 Unk nown LIPID GRP [id number] NON-HDL Chol 151 mg/dL 03/29/2020 Unknow n LIPID GRP 3716338 LDL Cholesterol 132 mg/dL 03/29/2020 Unk nown CBC 0288016 WBC 5.1 10e9/L 03/29/2020 Unknown CBC 7784968 RBC 5.11 10e12/L 03/29/2020 Unknow n CBC 1794859 HEMOGLOBIN 14.4 g/dL 03/29/2020 Unknown CBC 5631316 HEMATOCRIT 44.9 % 03/29/2020 Unknown CBC 9706162 MCV 87.9 fL 03/29/2020 Unknown CBC 5848126 MCH 28.2 pg 03/29/2020 Unknown CBC 9342039 MCHC 32.1 g/dL 03/29/2020 Unknown CBC 7420652 PLATELET COUNT 239 10e9/L 03/29/2020 Unk nown CBC 5000781 Mean Plt Volume 10.2 fL 03/29/2020 Unk nown CBC 7104858 Neut Auto 51.8 % 03/29/2020 Unknown CBC 7354555 Lymph Auto 24.1 % 03/29/2020 Unknown CBC 9098825 [place] Auto 12.9 % 03/29/2020 Unknown CBC 1642680 RDW 15.0 % 03/29/2020 Unknown CBC 7603464 Eos Auto 9.0 % 03/29/2020 Unknown CBC 2375104 Baso Auto 2.2 % 03/29/2020 Unknown CBC 1694692 Neutrophil Abs 2.64 10e9/L 03/29/2020 Un known CBC 6008106 Lymphocyte Abs 1.23 10e9/L 03/29/2020 Un known CBC 6670094 Monocyte Abs 0.66 10e9/L 03/29/2020 Unkn own CBC 5969046 Eosinophil Abs 0.46 10e9/L 03/29/2020 Un known CBC 4293573 RDW-SD 47.8 fL 03/29/2020 Unknown CBC 0488283 Basophil Abs 0.11 10e9/L 03/29/2020 Unkn own CHEM 14 1752787 AST 21 U/L 03/29/2020 Unknown CHEM 14 7249423 ALT 18 U/L 03/29/2020 Unknown CHEM 14 9499520 BUN 20 mg/dL 03/29/2020 Unknown CHEM 14 2751871 ALBUMIN 3.9 g/dL 03/29/2020 Unknown CHEM 14 0428526 CHLORIDE 103 mmol/L 03/29/2020 Unknown CHEM 14 0320975 Bili Total 0.6 mg/dL 03/29/2020 Unknown CHEM 14 2450400 ALK PHOS 76 U/L 03/29/2020 Unknown CHEM 14 8141099 SODIUM 141 mmol/L 03/29/2020 Unknown CHEM 14 6959282 CREATININE 0.91 mg/dL 03/29/2020 Unknown CHEM 14 6719596 CALCIUM 8.9 mg/dL 03/29/2020 Unknown CHEM 14 6146722 POTASSIUM 4.1 mmol/L 03/29/2020 Unknown CHEM 14 8718315 TOTAL PROTEIN 6.8 g/dL 03/29/2020 Unkno wn CHEM 14 9695695 GLUCOSE 137 mg/dL 03/29/2020 Unknown CHEM 14 4326950 Bicarbonate 28 mmol/L 03/29/2020 Unknown CHEM 14 6849676 AGAP 10 mmol/L 03/29/2020 Unknown A1C HPLC 7315103 Hgb A1c 69551-9 7.1 % 03/29/2020 Unknown GFR CALC 5197543 GFR Non Afr Amr 60 mL/min 03/29/2020 Unk nown GFR CALC 0779373 GFR Afr Amr >60 mL/min 03/29/2020 Unknow n MEAN GLUC 3318536 Calc Mean Gluc 157 mg/dL 03/29/2020 Unkn own GFR CALC 5962711 GFR Non Afr Amr >60 mL/min 11/27/2019 Un known GFR CALC 6747447 GFR Afr Amr >60 mL/min 11/27/2019 Unknow n CHEM 14 0799778 AST 14 U/L 11/27/2019 Unknown CHEM 14 3379452 ALT 12 U/L 11/27/2019 Unknown CHEM 14 4869388 BUN 17 mg/dL 11/27/2019 Unknown CHEM 14 7629625 ALBUMIN 4.0 g/dL 11/27/2019 Unknown CHEM 14 0789254 CHLORIDE 104 mmol/L 11/27/2019 Unknown CHEM 14 1316373 Bili Total 0.7 mg/dL 11/27/2019 Unknown CHEM 14 9914284 ALK PHOS 72 U/L 11/27/2019 Unknown CHEM 14 7065852 SODIUM 141 mmol/L 11/27/2019 Unknown CHEM 14 6986210 CREATININE 0.71 mg/dL 11/27/2019 Unknown CHEM 14 5609156 CALCIUM 9.1 mg/dL 11/27/2019 Unknown CHEM 14 7742976 POTASSIUM 3.9 mmol/L 11/27/2019 Unknown CHEM 14 7172912 TOTAL PROTEIN 6.7 g/dL 11/27/2019 Unkno wn CHEM 14 0779076 GLUCOSE 125 mg/dL 11/27/2019 Unknown CHEM 14 2269322 Bicarbonate 28 mmol/L 11/27/2019 Unknown CHEM 14 1004497 AGAP 9 mmol/L 11/27/2019 Unknown MEAN GLUC 1718328 Calc Mean Gluc 154 mg/dL 11/27/2019 Unkn own A1C HPLC 0408510 Hgb A1c 17814-0 7.0 % 11/27/2019 Unknown FREE T4 6099107 T4 Free 1.16 ng/dL 09/02/2019 Unknown CHEM 14 9242145 AST 13 U/L 09/02/2019 Unknown CHEM 14 2511038 ALT 11 U/L 09/02/2019 Unknown CHEM 14 9517014 BUN 17 mg/dL 09/02/2019 Unknown CHEM 14 8269935 ALBUMIN 4.0 g/dL 09/02/2019 Unknown CHEM 14 7162196 CHLORIDE 103 mmol/L 09/02/2019 Unknown CHEM 14 1089791 Bili Total 0.8 mg/dL 09/02/2019 Unknown CHEM 14 1468834 ALK PHOS 72 U/L 09/02/2019 Unknown CHEM 14 8722352 SODIUM 141 mmol/L 09/02/2019 Unknown CHEM 14 4235034 CREATININE 0.67 mg/dL 09/02/2019 Unknown CHEM 14 7836880 CALCIUM 9.4 mg/dL 09/02/2019 Unknown CHEM 14 1460774 POTASSIUM 3.9 mmol/L 09/02/2019 Unknown CHEM 14 4693298 TOTAL PROTEIN 6.6 g/dL 09/02/2019 Unkno wn CHEM 14 3291560 GLUCOSE 139 mg/dL 09/02/2019 Unknown CHEM 14 1757562 Bicarbonate 29 mmol/L 09/02/2019 Unknown CHEM 14 4553331 AGAP 9 mmol/L 09/02/2019 Unknown TSH 7505740 TSH 2.111 uIU/mL 09/02/2019 Unknow n A1C HPLC 0038189 Hgb A1c 64115-2 8.1 % 09/02/2019 Unknown LIPID GRP 2494360 CHOLESTEROL 194 mg/dL 09/02/2019 Unknown LIPID GRP 0560099 Triglyceride 96 mg/dL 09/02/2019 Unknow n LIPID GRP 4910713 HDL CHOLESTEROL 54 mg/dL 09/02/2019 Unk nown LIPID GRP 9735508 Chol/HDL Ratio 3.59 ratio 09/02/2019 Unk nown LIPID GRP 6551537 NON-HDL Chol 140 mg/dL 09/02/2019 Unknow n LIPID GRP 8878697 LDL Cholesterol 121 mg/dL 09/02/2019 Unk nown CBC 8752669 WBC 6.2 10e9/L 09/02/2019 Unknown CBC 8025798 RBC 4.93 10e12/L 09/02/2019 Unknow n CBC 7784961 HEMOGLOBIN 14.0 g/dL 09/02/2019 Unknown CBC 6505614 HEMATOCRIT 44.5 % 09/02/2019 Unknown CBC 8917872 MCV 90.3 fL 09/02/2019 Unknown CBC 5079190 MCH 28.4 pg 09/02/2019 Unknown CBC 3815616 MCHC 31.5 g/dL 09/02/2019 Unknown CBC 5432734 PLATELET COUNT 264 10e9/L 09/02/2019 Unk nown CBC 6576596 Mean Plt Volume 10.7 fL 09/02/2019 Unk nown CBC 4579669 Neut Auto 55.6 % 09/02/2019 Unknown CBC 9945115 Lymph Auto 25.7 % 09/02/2019 Unknown CBC 3718637 [place] Auto 9.2 % 09/02/2019 Unknown CBC 6318210 RDW 15.0 % 09/02/2019 Unknown CBC 0640944 Eos Auto 8.5 % 09/02/2019 Unknown CBC 0061848 Baso Auto 1.0 % 09/02/2019 Unknown CBC 6571276 Neutrophil Abs 3.45 10e9/L 09/02/2019 Un known CBC 7636279 Lymphocyte Abs 1.59 10e9/L 09/02/2019 Un known CBC 0216381 Monocyte Abs 0.57 10e9/L 09/02/2019 Unkn own CBC 8291001 Eosinophil Abs 0.53 10e9/L 09/02/2019 Un known CBC 1098927 RDW-SD 48.9 fL 09/02/2019 Unknown CBC 9934575 Basophil Abs 0.06 10e9/L 09/02/2019 Unkn own CHEM 14 3481247 AST 15 U/L 04/30/2019 Unknown CHEM 14 1077743 ALT 13 U/L 04/30/2019 Unknown CHEM 14 5465977 BUN 16 mg/dL 04/30/2019 Unknown CHEM 14 0994018 ALBUMIN 4.1 g/dL 04/30/2019 Unknown CHEM 14 2263309 CHLORIDE 102 mmol/L 04/30/2019 Unknown CHEM 14 1557494 Bili Total 0.7 mg/dL 04/30/2019 Unknown CHEM 14 6712619 ALK PHOS 71 U/L 04/30/2019 Unknown CHEM 14 6879491 SODIUM 140 mmol/L 04/30/2019 Unknown CHEM 14 8348327 CREATININE 0.75 mg/dL 04/30/2019 Unknown CHEM 14 8374688 CALCIUM 9.2 mg/dL 04/30/2019 Unknown CHEM 14 3896409 POTASSIUM 3.9 mmol/L 04/30/2019 Unknown CHEM 14 8789335 TOTAL PROTEIN 6.6 g/dL 04/30/2019 Unkno wn CHEM 14 3668786 GLUCOSE 160 mg/dL 04/30/2019 Unknown CHEM 14 5567377 Bicarbonate 31 mmol/L 04/30/2019 Unknown CHEM 14 6656283 AGAP 7 mmol/L 04/30/2019 Unknown A1C HPLC 4687366 Hgb A1c 94127-7 7.9 % 04/30/2019 Unknown TSH 9658025 TSH 1.728 uIU/mL 04/30/2019 Unknow n MEAN GLUC 3781906 Calc Mean Gluc 180 mg/dL 04/30/2019 Unkn own GFR CALC 5307263 GFR Non Afr Amr >60 mL/min 04/30/2019 Un known GFR CALC 2987728 GFR Afr Amr >60 mL/min 04/30/2019 Unknow n FREE T4 3176903 T4 Free 1.00 ng/dL 04/30/2019 Unknown MEAN GLUC 0792703 Calc Mean Gluc 206 mg/dL 01/13/2019 Unkn own GFR CALC 3400605 GFR Non Afr Amr >60 mL/min 01/13/2019 Un known GFR CALC 7219459 GFR Afr Amr >60 mL/min 01/13/2019 Unknow n LIPID GRP 4984852 CHOLESTEROL 184 mg/dL 01/13/2019 Unknown LIPID GRP 9467074 Triglyceride 84 mg/dL 01/13/2019 Unknow n LIPID GRP 8968586 HDL CHOLESTEROL 51 mg/dL 01/13/2019 Unk nown LIPID GRP 7033229 Chol/HDL Ratio 3.61 ratio 01/13/2019 Unk nown LIPID GRP 6712026 NON-HDL Chol 133 mg/dL 01/13/2019 Unknow n LIPID GRP 4861351 LDL Cholesterol 116 mg/dL 01/13/2019 Unk nown FREE T4 1697578 T4 Free 1.15 ng/dL 01/13/2019 Unknown CHEM 14 9061942 AST 13 U/L 01/13/2019 Unknown CHEM 14 2188220 ALT 12 U/L 01/13/2019 Unknown CHEM 14 7430019 BUN 19 mg/dL 01/13/2019 Unknown CHEM 14 4783078 ALBUMIN 4.0 g/dL 01/13/2019 Unknown CHEM 14 1055997 CHLORIDE 104 mmol/L 01/13/2019 Unknown CHEM 14 8527458 Bili Total 0.5 mg/dL 01/13/2019 Unknown CHEM 14 5235190 ALK PHOS 73 U/L 01/13/2019 Unknown CHEM 14 0220579 SODIUM 139 mmol/L 01/13/2019 Unknown CHEM 14 7595520 CREATININE 0.68 mg/dL 01/13/2019 Unknown CHEM 14 5493535 CALCIUM 9.4 mg/dL 01/13/2019 Unknown CHEM 14 5370810 POTASSIUM 4.1 mmol/L 01/13/2019 Unknown CHEM 14 7167666 TOTAL PROTEIN 6.4 g/dL 01/13/2019 Unkno wn CHEM 14 2580339 GLUCOSE 194 mg/dL 01/13/2019 Unknown CHEM 14 5805522 Bicarbonate 31 mmol/L 01/13/2019 Unknown CHEM 14 7876902 AGAP 4 mmol/L 01/13/2019 Unknown CBC 1597489 WBC 6.4 10e9/L 01/13/2019 Unknown CBC 6380554 RBC 4.85 10e12/L 01/13/2019 Unknow n CBC 8389658 HEMOGLOBIN 13.8 g/dL 01/13/2019 Unknown CBC 1428265 HEMATOCRIT 43.5 % 01/13/2019 Unknown CBC 7222648 MCV 89.7 fL 01/13/2019 Unknown CBC 0183049 MCH 28.5 pg 01/13/2019 Unknown CBC 2395590 MCHC 31.7 g/dL 01/13/2019 Unknown CBC 9738001 PLATELET COUNT 283 10e9/L 01/13/2019 Unk nown CBC 2782122 Mean Plt Volume 10.6 fL 01/13/2019 Unk nown CBC 7444696 Neut Auto 56.2 % 01/13/2019 Unknown CBC 9062984 Lymph Auto 21.7 % 01/13/2019 Unknown CBC 0299778 [place] Auto 10.0 % 01/13/2019 Unknown CBC 6730828 Eos Auto 11.3 % 01/13/2019 Unknown CBC 1295322 RDW 14.9 % 01/13/2019 Unknown CBC 0887591 Baso Auto 0.8 % 01/13/2019 Unknown CBC 8809782 Neutrophil Abs 3.60 10e9/L 01/13/2019 Un known CBC 7992352 Lymphocyte Abs 1.39 10e9/L 01/13/2019 Un known CBC 2196701 Monocyte Abs 0.64 10e9/L 01/13/2019 Unkn own CBC 0036658 Eosinophil Abs 0.72 10e9/L 01/13/2019 Un known CBC 3520419 RDW-SD 47.9 fL 01/13/2019 Unknown CBC 7379790 Basophil Abs 0.05 10e9/L 01/13/2019 Unkn own A1C HPLC 9550153 Hgb A1c 27218-7 8.8 % 01/13/2019 Unknown TSH 4314791 TSH 0.966 uIU/mL 01/13/2019 Unknow n A1C HPLC 1398001 Hgb A1c 23904-8 7.9 % 09/11/2018 Unknown CBC 3055295 WBC 5.6 10e9/L 09/11/2018 Unknown CBC 4002693 RBC 5.07 10e12/L 09/11/2018 Unknow n CBC 5715675 HEMOGLOBIN 13.7 g/dL 09/11/2018 Unknown CBC 8304166 HEMATOCRIT 43.9 % 09/11/2018 Unknown CBC 3651785 MCV 86.6 fL 09/11/2018 Unknown CBC 3239490 MCH 27.0 pg 09/11/2018 Unknown CBC 3669950 MCHC 31.2 g/dL 09/11/2018 Unknown CBC 8779436 PLATELET COUNT 282 10e9/L 09/11/2018 Unk nown CBC 9770012 Mean Plt Volume 10.3 fL 09/11/2018 Unk nown CBC 5807667 Neut Auto 46.8 % 09/11/2018 Unknown CBC 8694192 Lymph Auto 28.0 % 09/11/2018 Unknown CBC 9929884 [place] Auto 10.5 % 09/11/2018 Unknown CBC 0379303 RDW 15.9 % 09/11/2018 Unknown CBC 9946672 Eos Auto 12.9 % 09/11/2018 Unknown CBC 5109618 Baso Auto 1.8 % 09/11/2018 Unknown CBC 0830839 Neutrophil Abs 2.62 10e9/L 09/11/2018 Un known CBC 5808762 Lymphocyte Abs 1.57 10e9/L 09/11/2018 Un known CBC 8665286 Monocyte Abs 0.59 10e9/L 09/11/2018 Unkn own CBC 7955938 Eosinophil Abs 0.72 10e9/L 09/11/2018 Un known CBC 9975737 RDW-SD 49.6 fL 09/11/2018 Unknown CBC 3757900 Basophil Abs 0.10 10e9/L 09/11/2018 Unkn own CHEM 14 7831660 AST 17 U/L 09/11/2018 Unknown CHEM 14 9288698 ALT 14 U/L 09/11/2018 Unknown CHEM 14 4480674 BUN 20 mg/dL 09/11/2018 Unknown CHEM 14 3765825 ALBUMIN 3.8 g/dL 09/11/2018 Unknown CHEM 14 5675520 CHLORIDE 104 mmol/L 09/11/2018 Unknown CHEM 14 8259378 Bili Total 0.7 mg/dL 09/11/2018 Unknown CHEM 14 6670721 ALK PHOS 64 U/L 09/11/2018 Unknown CHEM 14 2952788 SODIUM 143 mmol/L 09/11/2018 Unknown CHEM 14 6246937 CREATININE 0.75 mg/dL 09/11/2018 Unknown CHEM 14 7493674 CALCIUM 9.3 mg/dL 09/11/2018 Unknown CHEM 14 0520791 POTASSIUM 4.3 mmol/L 09/11/2018 Unknown CHEM 14 0341301 TOTAL PROTEIN 6.5 g/dL 09/11/2018 Unkno wn CHEM 14 [id number] GLUCOSE 174 mg/dL 09/11/2018 Unknown CHEM 14 1321158 Bicarbonate 31 mmol/L 09/11/2018 Unknown CHEM 14 0126085 AGAP 8 mmol/L 09/11/2018 Unknown FREE T4 [id number] T4 Free 1.16 ng/dL 09/11/2018 Unknown MEAN GLUC 8486129 Calc Mean Gluc 180 mg/dL 09/11/2018 Unkn own TSH 2592520 TSH 1.080 uIU/mL 09/11/2018 Unknow n GFR CALC 3732461 GFR Non Afr Amr >60 mL/min 09/11/2018 Un known GFR CALC 9302934 GFR Afr Amr >60 mL/min 09/11/2018 Unknow n Free T4 Lrp052 FREE T4 1.66 ng/dL 05/09/2018 Unknown Tsh [...] 05/09/20 18 Unknown Cbc With Differential Ord2 [place]% 11.6 % 05/09/20 18 Unknown Cbc With [...] K/ul 018 Unknown Cbc With Differential Ord2 [place] ABS# 0.8 K/ul 05/09/20 18 Unknown Cbc [...] Ord15 CALCIUM 9.3 mg/dL 05/09/2018 Unknown %Hba1C Dld140 % HbA1c 84082-3 8.9 % 05/09/2018 Unknown %Hba1C Foa715 Gluc Ave 209 mg/dL 05/09/2018 Unknown LIPID GRP 1095431 CHOLESTEROL 184 mg/dL 01/14/2018 Unknown LIPID GRP 6760753 Triglyceride 65 mg/dL 01/14/2018 Unknow n LIPID GRP HDL CHOLESTEROL 53 mg/dL 01/14/2018 Unk nown LIPID GRP Chol/HDL Ratio 3.47 ratio 01/14/2018 Unk nown LIPID GRP 1522832 NON-HDL Chol 131 mg/dL 01/14/2018 Unknow n LIPID GRP LDL Cholesterol 118 mg/dL 01/14/2018 Unk nown A1C HPLC 8754500 Hgb A1c 49139-0 6.5 % 01/14/2018 Unknown CBC 6777608 WBC 5.8 10e9/L 01/14/2018 Unknown CBC 5691264 RBC 4.67 10e12/L 01/14/2018 Unknow n CBC 1781987 HEMOGLOBIN 12.4 g/dL 01/14/2018 Unknown CBC 3755662 HEMATOCRIT 40.6 % 01/14/2018 Unknown CBC 7276012 MCV 86.9 fL 01/14/2018 Unknown CBC 8780392 MCH 26.6 pg 01/14/2018 Unknown CBC 7796026 MCHC 30.5 g/dL 01/14/2018 Unknown CBC 1745402 PLATELET COUNT 419 10e9/L 01/14/2018 Unk nown CBC 3112920 Mean Plt Volume 10.1 fL 01/14/2018 Unk nown CBC 3757856 Neut Auto 60.7 % 01/14/2018 Unknown CBC 1735659 Lymph Auto 24.8 % 01/14/2018 Unknown CBC 2827266 [place] Auto 9.7 % 01/14/2018 Unknown CBC 2678976 RDW 25.0 % 01/14/2018 Unknown CBC 7211118 Eos Auto 3.4 % 01/14/2018 Unknown CBC 9879699 Baso Auto 1.4 % 01/14/2018 Unknown CBC 7110222 Neutrophil Abs 3.52 10e9/L 01/14/2018 Un known CBC 6593715 Lymphocyte Abs 1.44 10e9/L 01/14/2018 Un known CBC 2785477 Monocyte Abs 0.56 10e9/L 01/14/2018 Unkn own CBC 4095842 Eosinophil Abs 0.20 10e9/L 01/14/2018 Un known CBC 7157933 RDW-SD 75.4 fL 01/14/2018 Unknown CBC 0619549 Basophil Abs 0.08 10e9/L 01/14/2018 Unkn own MEAN GLUC 3508155 Calc Mean Gluc 140 mg/dL 01/14/2018 Unkn own Culture Urine 038686 URINE CULTURE SEE NOTES 01/03/2018 Unknown Culture Urine [id number] Continued Results 01/04/20 18 Unknown Urine Culture [...] 11/21/19 18 Unknown Cbc With Differential Ord2 [place]% 7.9 % 11/21/19 18 Unknown Cbc With [...] K/ul 018 Unknown Cbc With Differential Ord2 [place] ABS# 0.7 K/ul 11/21/19 18 Unknown Cbc With Differential Ord2 Eos ABS# 0.3 K/ul 11/21/19 18 Unknown Cbc With Differential Ord2 Baso ABS# 0.1 K/ul 11/21/19 18 Unknown Comp Metabolic Qen115 NA 142 mEq/L 11/20/2017 Unkn own Comp Metabolic Krl807 K 4.1 mEq/L 11/20/2017 Unkn own Comp Metabolic Oam754 CL 104 mEq/L 11/20/2017 Unkn own Comp Metabolic Pyz307 CO2 29.0 mEq/L 11/20/2017 Unk nown Comp Metabolic Hxc985 ANION GAP 13 11/20/2017 Unkn own Comp Metabolic Xtd039 GLUCOSE 178 mg/dL 11/20/2017 Unkn own Comp Metabolic Evp694 Creat 0.6 mg/dL 11/20/2017 Unkn own Comp Metabolic Uao891 eGFR 112 ml/min/1.73m2 018 Unknown Comp Metabolic Xhx757 BUN 19 mg/dL 11/20/2017 Unkn own Comp Metabolic Hba823 B/C Ratio 33.9 Ratio 11/20/2017 Unk nown Comp Metabolic Ztj901 CALCIUM 9.3 mg/dL 11/20/2017 Unkn own Comp Metabolic Lfv364 ALK PHOS 60 U/L 11/20/2017 Unkn own Comp Metabolic Sid771 AST(SGOT) 13 U/L 11/20/2017 Unkn own Comp Metabolic Lju690 ALT(SGPT) 14 U/L 11/20/2017 Unkn own Comp Metabolic Rel902 BILI T 0.4 mg/dL 11/20/2017 Unkn own Comp Metabolic Rtb256 ALBUMIN 4.1 g/dL 11/20/2017 Unkn own Comp Metabolic Iiy560 TPRO 6.0 g/dL 11/20/2017 Unkn own Comp Metabolic Fjo976 GLOB 1.9 g/dL 11/20/2017 Unkn own Comp Metabolic Nzl597 A/G Ratio 2.2 Ratio 11/20/2017 Unkn own Comp Metabolic Gzo397 Osmo 290 mOsmo 11/20/2017 Unkn own Cbc [...] 11/14/19 18 Unknown Cbc With Differential Ord2 [place]% 7.8 % 11/14/19 18 Unknown Cbc With [...] K/ul 018 Unknown Cbc With Differential Ord2 [place] ABS# 0.8 K/ul 11/14/19 18 Unknown Cbc With Differential Ord2 Eos ABS# 0.3 K/ul 11/14/19 18 Unknown Cbc With Differential Ord2 Baso ABS# 0.1 K/ul 11/14/19 18 Unknown Comp Metabolic Bpe940 NA 142 mEq/L 11/13/2017 Unkn own Comp Metabolic Dbj987 K 4.2 mEq/L 11/13/2017 Unkn own Comp Metabolic Owj662 CL 104 mEq/L 11/13/2017 Unkn own Comp Metabolic Obd224 CO2 26.0 mEq/L 11/13/2017 Unk nown Comp Metabolic Ywj370 ANION GAP 16 11/13/2017 Unkn own Comp Metabolic Kyc021 GLUCOSE 115 mg/dL 11/13/2017 Unkn own Comp Metabolic Rct975 Creat 0.6 mg/dL 11/13/2017 Unkn own Comp Metabolic Qim462 eGFR 114 ml/min/1.73m2 018 Unknown Comp Metabolic Zmr021 BUN 15 mg/dL 11/13/2017 Unkn own Comp Metabolic Igo448 B/C Ratio 27.3 Ratio 11/13/2017 Unk nown Comp Metabolic Wnq997 CALCIUM 9.2 mg/dL 11/13/2017 Unkn own Comp Metabolic Edc000 ALK PHOS 59 U/L 11/13/2017 Unkn own Comp Metabolic Fcc803 AST(SGOT) 12 U/L 11/13/2017 Unkn own Comp Metabolic Ric504 ALT(SGPT) 13 U/L 11/13/2017 Unkn own Comp Metabolic Qax646 BILI T 0.5 mg/dL 11/13/2017 Unkn own Comp Metabolic Bcz422 ALBUMIN 4.0 g/dL 11/13/2017 Unkn own Comp Metabolic Ycu315 TPRO 6.0 g/dL 11/13/2017 Unkn own Comp Metabolic Oev025 GLOB 2.0 g/dL 11/13/2017 Unkn own Comp Metabolic Oig446 A/G Ratio 2.0 Ratio 11/13/2017 Unkn own Comp Metabolic Qqk759 Osmo 285 mOsmo 11/13/2017 Unkn own Cbc [...] 09/21/19 18 Unknown Cbc With Differential Ord2 [place]% 9.9 % 09/21/19 18 Unknown Cbc With [...] K/ul 018 Unknown Cbc With Differential Ord2 [place] ABS# 0.9 K/ul 09/21/19 18 Unknown Cbc With Differential Ord2 Eos ABS# 0.4 K/ul 09/21/19 18 Unknown Cbc With Differential Ord2 Baso ABS# 0.1 K/ul 09/21/19 18 Unknown Comp Metabolic Cnz825 NA 138 mEq/L 09/20/2017 Unkn own Comp Metabolic Lox065 K 4.0 mEq/L 09/20/2017 Unkn own Comp Metabolic Spc593 CL 99 mEq/L 09/20/2017 Unkn own Comp Metabolic Wgi447 CO2 26.0 mEq/L 09/20/2017 Unk nown Comp Metabolic Ksh201 ANION GAP 17 09/20/2017 Unkn own Comp Metabolic Uky448 GLUCOSE 275 mg/dL 09/20/2017 Unkn own Comp Metabolic Ziw230 Creat 0.6 mg/dL 09/20/2017 Unkn own Comp Metabolic Iun186 eGFR 96 ml/min/1.73m2 09/21/19 18 Unknown Comp Metabolic Dwu544 BUN 17 mg/dL 09/20/2017 Unkn own Comp Metabolic Kks443 B/C Ratio 26.6 Ratio 09/20/2017 Unk nown Comp Metabolic Spw742 CALCIUM 9.5 mg/dL 09/20/2017 Unkn own Comp Metabolic Mcz754 ALK PHOS 57 U/L 09/20/2017 Unkn own Comp Metabolic Sqb250 AST(SGOT) 13 U/L 09/20/2017 Unkn own Comp Metabolic Atc747 ALT(SGPT) 13 U/L 09/20/2017 Unkn own Comp Metabolic Bqr922 BILI T 0.5 mg/dL 09/20/2017 Unkn own Comp Metabolic Way350 ALBUMIN 4.1 g/dL 09/20/2017 Unkn own Comp Metabolic Brs781 TPRO 5.9 g/dL 09/20/2017 Unkn own Comp Metabolic Llu554 GLOB 1.8 g/dL 09/20/2017 Unkn own Comp Metabolic Qqq759 A/G Ratio 2.3 Ratio 09/20/2017 Unkn own Comp Metabolic Ece403 Osmo 287 mOsmo 09/20/2017 Unkn own %Hba1C Plx529 % HbA1c 03821-8 7.2 % 09/20/2017 Unknown %Hba1C Nhm151 Gluc Ave 160 mg/dL 09/20/2017 Unknown MEAN GLUC 7256793 Calc Mean Gluc 169 mg/dL 02/28/2017 Unkn own CBC 0396135 WBC 7.6 10e9/L 02/28/2017 Unknown CBC 0466195 RBC 4.91 10e12/L 02/28/2017 Unknow n CBC 3411948 HEMOGLOBIN 13.2 g/dL 02/28/2017 Unknown CBC 6774895 HEMATOCRIT 42.7 % 02/28/2017 Unknown CBC 4861952 MCV 87.0 fL 02/28/2017 Unknown CBC 8295442 MCH 26.9 pg 02/28/2017 Unknown CBC 4477705 MCHC 30.9 g/dL 02/28/2017 Unknown CBC 9927140 PLATELET COUNT 341 10e9/L 02/28/2017 Unk nown CBC 8631274 Mean Plt Volume 10.7 fL 02/28/2017 Unk nown CBC 9556370 Neut Auto 62.1 % 02/28/2017 Unknown CBC 6988627 Lymph Auto 20.2 % 02/28/2017 Unknown CBC 7893687 [place] Auto 9.3 % 02/28/2017 Unknown CBC 1224107 RDW 15.8 % 02/28/2017 Unknown CBC 8474070 Eos Auto 7.1 % 02/28/2017 Unknown CBC 5500736 Baso Auto 1.3 % 02/28/2017 Unknown CBC 3126823 Neutrophil Abs 4.72 10e9/L 02/28/2017 Un known CBC 0992434 Lymphocyte Abs 1.54 10e9/L 02/28/2017 Un known CBC 8014879 Monocyte Abs 0.71 10e9/L 02/28/2017 Unkn own CBC 0943679 Eosinophil Abs 0.54 10e9/L 02/28/2017 Un known CBC 0223762 RDW-SD 49.0 fL 02/28/2017 Unknown CBC 1744440 Basophil Abs 0.10 10e9/L 02/28/2017 Unkn own LIPID GRP [id number] CHOLESTEROL 189 mg/dL 02/28/2017 Unknown LIPID GRP 4560886 Triglyceride 124 mg/dL 02/28/2017 Unknow n LIPID GRP 1532595 HDL CHOLESTEROL 43 mg/dL 02/28/2017 Unk nown LIPID GRP 1816373 Chol/HDL Ratio 4.40 ratio 02/28/2017 Unk nown LIPID GRP 1698605 NON-HDL Chol 146 mg/dL 02/28/2017 Unknow n LIPID GRP 4265016 LDL Cholesterol 121 mg/dL 02/28/2017 Unk nown A1C HPLC 2237259 Hgb A1c 48791-5 7.5 % 02/28/2017 Unknown GFR CALC 7159986 GFR Non Afr Amr >60 mL/min 02/28/2017 Un known GFR CALC 2588884 GFR Afr Amr >60 mL/min 02/28/2017 Unknow n CHEM 14 7395123 AST 15 U/L 02/28/2017 Unknown CHEM 14 8549446 ALT 16 U/L 02/28/2017 Unknown CHEM 14 9447072 BUN 18 mg/dL 02/28/2017 Unknown CHEM 14 7128800 ALBUMIN 4.0 g/dL 02/28/2017 Unknown CHEM 14 2178118 CHLORIDE 104 mmol/L 02/28/2017 Unknown CHEM 14 8461712 Bili Total 0.6 mg/dL 02/28/2017 Unknown CHEM 14 3998241 ALK PHOS 53 U/L 02/28/2017 Unknown CHEM 14 2077508 SODIUM 143 mmol/L 02/28/2017 Unknown CHEM 14 6111158 CREATININE 0.66 mg/dL 02/28/2017 Unknown CHEM 14 1592058 CALCIUM 9.2 mg/dL 02/28/2017 Unknown CHEM 14 4075900 POTASSIUM 3.9 mmol/L 02/28/2017 Unknown CHEM 14 2253092 TOTAL PROTEIN 6.6 g/dL 02/28/2017 Unkno wn CHEM 14 6859730 GLUCOSE 146 mg/dL 02/28/2017 Unknown CHEM 14 7400333 Bicarbonate 30 mmol/L 02/28/2017 Unknown CHEM 14 3262634 AGAP 9 mmol/L 02/28/2017 Unknown CBC 1712953 WBC 6.8 10e9/L 08/21/2016 Unknown CBC 1741914 RBC 4.87 10e12/L 08/21/2016 Unknow n CBC 5664727 HEMOGLOBIN 12.7 g/dL 08/21/2016 Unknown CBC 9761324 HEMATOCRIT 40.5 % 08/21/2016 Unknown CBC 6975806 MCV 83.2 fL 08/21/2016 Unknown CBC 0947029 MCH 26.1 pg 08/21/2016 Unknown CBC 8695331 MCHC 31.4 g/dL 08/21/2016 Unknown CBC 1399651 PLATELET COUNT 334 10e9/L 08/21/2016 Unk nown CBC 0632693 Mean Plt Volume 10.5 fL 08/21/2016 Unk nown CBC 1408310 Neut Auto 56.4 % 08/21/2016 Unknown CBC 7998665 Lymph Auto 23.5 % 08/21/2016 Unknown CBC 9045347 [place] Auto 9.7 % 08/21/2016 Unknown CBC 0112992 RDW 16.6 % 08/21/2016 Unknown CBC 2211238 Eos Auto 9.5 % 08/21/2016 Unknown CBC 2966352 Baso Auto 0.9 % 08/21/2016 Unknown CBC 3332848 Neutrophil Abs 3.84 10e9/L 08/21/2016 Un known CBC 6127101 Lymphocyte Abs 1.60 10e9/L 08/21/2016 Un known CBC 2596680 Monocyte Abs 0.66 10e9/L 08/21/2016 Unkn own CBC 1721016 Eosinophil Abs 0.65 10e9/L 08/21/2016 Un known CBC 9642216 RDW-SD 49.7 fL 08/21/2016 Unknown CBC 5953450 Basophil Abs 0.06 10e9/L 08/21/2016 Unkn own FREE T4 4762430 T4 Free 1.39 ng/dL 08/21/2016 Unknown LIPID GRP CHOLESTEROL 211 mg/dL 08/21/2016 Unknown LIPID GRP 7398414 Triglyceride 105 mg/dL 08/21/2016 Unknow n LIPID GRP 9108742 HDL CHOLESTEROL 45 mg/dL 08/21/2016 Unk nown LIPID GRP Chol/HDL Ratio 4.69 ratio 08/21/2016 Unk nown LIPID GRP 1656547 NON-HDL Chol 166 mg/dL 08/21/2016 Unknow n LIPID GRP LDL Cholesterol 145 mg/dL 08/21/2016 Unk nown A1C HPLC 9229177 Hgb A1c 13830-1 7.4 % 08/21/2016 Unknown GFR CALC 4748362 GFR Non Afr Amr >60 mL/min 08/21/2016 Un known GFR CALC 8679176 GFR Afr Amr >60 mL/min 08/21/2016 Unknow n CHEM 14 4090308 AST 16 U/L 08/21/2016 Unknown CHEM 14 3721144 ALT 14 U/L 08/21/2016 Unknown CHEM 14 4138495 BUN 14 mg/dL 08/21/2016 Unknown CHEM 14 7290005 ALBUMIN 4.1 g/dL 08/21/2016 Unknown CHEM 14 4591789 CHLORIDE 105 mmol/L 08/21/2016 Unknown CHEM 14 6903278 Bili Total 0.5 mg/dL 08/21/2016 Unknown CHEM 14 1069258 ALK PHOS 53 U/L 08/21/2016 Unknown CHEM 14 1135521 SODIUM 141 mmol/L 08/21/2016 Unknown CHEM 14 8986587 CREATININE 0.66 mg/dL 08/21/2016 Unknown CHEM 14 4019186 CALCIUM 9.3 mg/dL 08/21/2016 Unknown CHEM 14 5409088 POTASSIUM 4.0 mmol/L 08/21/2016 Unknown CHEM 14 5951415 TOTAL PROTEIN 6.6 g/dL 08/21/2016 Unkno wn CHEM 14 2948366 GLUCOSE 145 mg/dL 08/21/2016 Unknown CHEM 14 7577407 Bicarbonate 29 mmol/L 08/21/2016 Unknown CHEM 14 8921531 AGAP 7 mmol/L 08/21/2016 Unknown TSH 1075145 TSH 1.485 uIU/mL 08/21/2016 Unknow n MEAN GLUC 0805956 Calc Mean Gluc 166 mg/dL 08/21/2016 Unkn [...] 04/24/20 16 Unknown Cbc With Differential Ord2 [place]% 10.9 % 04/24/20 16 Unknown Cbc With [...] K/ul 016 Unknown Cbc With Differential Ord2 [place] ABS# 0.7 K/ul 04/24/20 16 Unknown Cbc With Differential Ord2 Eos ABS# 0.7 K/ul 04/24/20 16 Unknown Cbc With Differential Ord2 Baso ABS# 0.1 K/ul 04/24/20 16 Unknown Comp Metabolic Obi715 NA 138 mEq/L 04/24/2016 Unkn own Comp Metabolic Xku002 K 4.3 mEq/L 04/24/2016 Unkn own Comp Metabolic Rfe467 CL 103 mEq/L 04/24/2016 Unkn own Comp Metabolic Brh180 CO2 28.0 mEq/L 04/24/2016 Unk nown Comp Metabolic Lub937 ANION GAP 11 04/24/2016 Unkn own Comp Metabolic Jet372 GLUCOSE 138 mg/dL 04/24/2016 Unkn own Comp Metabolic Qdi775 Creat 0.6 mg/dL 04/24/2016 Unkn own Comp Metabolic Ydx632 eGFR 98 ml/min/1.73m2 04/24/20 16 Unknown Comp Metabolic Lul171 BUN 16 mg/dL 04/24/2016 Unkn own Comp Metabolic Cdh288 B/C Ratio 25.4 Ratio 04/24/2016 Unk nown Comp Metabolic Uvw448 CALCIUM 9.2 mg/dL 04/24/2016 Unkn own Comp Metabolic Dgl819 ALK PHOS 55 U/L 04/24/2016 Unkn own Comp Metabolic Gxl019 AST(SGOT) 16 U/L 04/24/2016 Unkn own Comp Metabolic Krr263 ALT(SGPT) 16 U/L 04/24/2016 Unkn own Comp Metabolic Clz818 BILI T 0.6 mg/dL 04/24/2016 Unkn own Comp Metabolic Hiy113 ALBUMIN 3.9 g/dL 04/24/2016 Unkn own Comp Metabolic Isj120 TPRO 6.1 g/dL 04/24/2016 Unkn own Comp Metabolic Hkr526 GLOB 2.2 g/dL 04/24/2016 Unkn own Comp Metabolic Onu915 A/G Ratio 1.7 Ratio 04/24/2016 Unkn own Comp Metabolic Wep680 Osmo 279 mOsmo 04/24/2016 Unkn own Lipid Ord30 CHOL 208 mg/dL 04/24/2016 Unknown Lipid Ord30 HDL 42.0 mg/dl 04/24/2016 Unknown Lipid Ord30 TRIG 98 mg/dL 04/24/2016 Unknown Lipid Ord30 LDL 146 mg/dL 04/24/2016 Unknown Lipid Ord30 C/HDL 5.0 Ratio 04/24/2016 Unknown %Hba1C Far533 % HbA1c 73229-5 7.5 % 04/24/2016 Unknown %Hba1C Jyt807 Gluc Ave 169 mg/dL 04/24/2016 Unknown Tsh Ord6 hTSH II 0.82 uIU/mL 04/24/2016 Unknown Free T4 Gaw805 FREE T4 1.17 ng/dL 04/24/2016 Unknown Digoxin Ord9 DIGOXIN 0.9 NG/ML 02/03/2016 Unknown Free T4 Vms404 FREE T4 1.17 ng/dL 12/07/2015 Unknown %Hba1C Kli180 % HbA1c 89044-7 7.5 % 12/07/2015 Unknown %Hba1C Rdw883 Gluc Ave 169 mg/dL 12/07/2015 Unknown Tsh [...] 12/07/19 16 Unknown Cbc With Differential Ord2 [place]% 9.3 % 12/07/19 16 Unknown Cbc With [...] K/ul 016 Unknown Cbc With Differential Ord2 [place] ABS# 0.7 K/ul 12/07/19 16 Unknown Cbc [...] C/HDL 4.8 Ratio 12/07/2015 Unknown Comp Metabolic Ood266 NA 139 mEq/L 12/07/2015 Unkn own Comp Metabolic Mnf203 K 4.3 mEq/L 12/07/2015 Unkn own Comp Metabolic Sdp847 CL 101 mEq/L 12/07/2015 Unkn own Comp Metabolic Enr986 CO2 33.0 mEq/L 12/07/2015 Unk nown Comp Metabolic Huq429 ANION GAP 9 12/07/2015 Unkn own Comp Metabolic Wuj367 GLUCOSE 159 mg/dL 12/07/2015 Unkn own Comp Metabolic Mks779 Creat 0.6 mg/dL 12/07/2015 Unkn own Comp Metabolic Gcj702 eGFR 108 ml/min/1.73m2 016 Unknown Comp Metabolic Ucc835 BUN 13 mg/dL 12/07/2015 Unkn own Comp Metabolic Hqp220 B/C Ratio 22.4 Ratio 12/07/2015 Unk nown Comp Metabolic Qbp014 CALCIUM 9.0 mg/dL 12/07/2015 Unkn own Comp Metabolic Evs416 ALK PHOS 60 U/L 12/07/2015 Unkn own Comp Metabolic Hwj711 AST(SGOT) 16 U/L 12/07/2015 Unkn own Comp Metabolic Uhe054 ALT(SGPT) 19 U/L 12/07/2015 Unkn own Comp Metabolic Iym135 BILI T 0.6 mg/dL 12/07/2015 Unkn own Comp Metabolic Uue607 ALBUMIN 4.0 g/dL 12/07/2015 Unkn own Comp Metabolic Jrh564 TPRO 6.0 g/dL 12/07/2015 Unkn own Comp Metabolic Ufc889 GLOB 2.0 g/dL 12/07/2015 Unkn own Comp Metabolic Ycz423 A/G Ratio 1.9 Ratio 12/07/2015 Unkn own Comp Metabolic Gjp938 Osmo 281 mOsmo 12/07/2015 Unkn own Cbc [...] hTSH II 1.10 uIU/mL 06/14/2015 Unknown %Hba1C Ssy519 % HbA1c 81782-1 6.8 % 06/14/2015 Unknown %Hba1C Xgy509 Gluc Ave 148 mg/dL 06/14/2015 Unknown Free T4 Jca089 FREE T4 1.31 ng/dL 06/14/2015 Unknown CHEM 14 8886522 AST 14 U/L 12/07/2014 Unknown CHEM 14 6257646 ALT 12 IU/L 12/07/2014 Unknown CHEM 14 2955265 BUN 12 MG/DL 12/07/2014 Unknown CHEM 14 7150547 ALBUMIN 3.9 GM/DL 12/07/2014 Unknown CHEM 14 8922972 CHLORIDE 103 MMOL/L 12/07/2014 Unknown CHEM 14 0761016 BILI TOT 0.6 MG/DL 12/07/2014 Unknown CHEM 14 0504357 ALK PHOS 49 U/L 12/07/2014 Unknown CHEM 14 4445165 SODIUM 140 MMOL/L 12/07/2014 Unknown CHEM 14 4102295 CREATININE 0.57 MG/DL 12/07/2014 Unknown CHEM 14 5116148 CALCIUM 9.5 MG/DL 12/07/2014 Unknown CHEM 14 6409687 POTASSIUM 4.0 MMOL/L 12/07/2014 Unknown CHEM 14 4372160 PROT TOT 6.5 GM/DL 12/07/2014 Unknown CHEM 14 7697625 GLUCOSE 110 MG/DL 12/07/2014 Unknown CHEM 14 5271287 BICARB 29 MMOL/L 12/07/2014 Unknown CHEM 14 4376334 ANION GAP 8 MEQ/L 12/07/2014 Unknown A1C HPLC 8648833 A1C HPLC 01072-7 6.4 % 12/07/2014 Unknown TSH 5951213 TSH 1.106 uIU/ML 12/07/2014 Unknow n LIPID GRP HDL TEST 46 MG/DL 12/07/2014 Unknown LIPID GRP TRIG 119 MG/DL 12/07/2014 Unknown LIPID GRP TEST LDL 108 MG/DL 12/07/2014 Unknown LIPID GRP CHOL 178 MG/DL 12/07/2014 Unknown LIPID GRP RCHOL/HDL 3.87 RATIO 12/07/2014 Unknown LIPID GRP NON-HDL CH 132 MG/DL 12/07/2014 Unknown CBC 8916277 WBC 6.4 10e9/L 12/07/2014 Unknown CBC 2619012 RBC 4.51 10e12/L 12/07/2014 Unknow n CBC 1085290 HGB 12.2 g/dL 12/07/2014 Unknown CBC 7187599 HCT DET 39.0 % 12/07/2014 Unknown CBC 4441920 MCV 86.5 fL 12/07/2014 Unknown CBC 5056546 MCH 27.1 pg 12/07/2014 Unknown CBC 5114690 MCHC 31.3 g/dL 12/07/2014 Unknown CBC 8247718 PLT 325 10e9/L 12/07/2014 Unknown CBC 9634215 MPV 10.4 fL 12/07/2014 Unknown CBC 8208727 TIM % 62.0 % 12/07/2014 Unknown CBC 1845438 LY % 21.4 % 12/07/2014 Unknown CBC 4308655 MON % 9.5 % 12/07/2014 Unknown CBC 1179057 EOS % 6.3 % 12/07/2014 Unknown CBC 9832902 BASO % 0.8 % 12/07/2014 Unknown CBC 2612811 RDW 15.8 % 12/07/2014 Unknown CBC 1884829 ABS TIM 3.97 10e9/L 12/07/2014 Unknown CBC 2009971 ABS LYMPH 1.37 10e9/L 12/07/2014 Unknown CBC 2403546 ABS MONO 0.61 10e9/L 12/07/2014 Unknown CBC 7614962 ABS EOS 0.40 10e9/L 12/07/2014 Unknown CBC 6740132 ABS BASO 0.05 10e9/L 12/07/2014 Unknown CBC 9975841 RDW-SD 48.8 fL 12/07/2014 Unknown FREE T4 9611498 FREE T4 1.37 NG/DL 12/07/2014 Unknown GFR CALC 1366751 GFR AA >60 ML/MIN 12/07/2014 Unknown GFR CALC 0890702 GFR NON-AA >60 ML/MIN 12/07/2014 Unknown CHEM 14 9930389 AST 17 U/L 11/04/2013 Unknown CHEM 14 8112411 ALT 16 IU/L 11/04/2013 Unknown CHEM 14 5105380 BUN 13 MG/DL 11/04/2013 Unknown CHEM 14 2491126 ALBUMIN 4.3 GM/DL 11/04/2013 Unknown CHEM 14 9272928 CHLORIDE 104 MMOL/L 11/04/2013 Unknown CHEM 14 5980161 BILI TOT 0.7 MG/DL 11/04/2013 Unknown CHEM 14 9997568 ALK PHOS 67 U/L 11/04/2013 Unknown CHEM 14 1729135 SODIUM 140 MMOL/L 11/04/2013 Unknown CHEM 14 1787188 CREATININE 0.64 MG/DL 11/04/2013 Unknown CHEM 14 5182955 CALCIUM 9.5 MG/DL 11/04/2013 Unknown CHEM 14 7942632 POTASSIUM 4.0 MMOL/L 11/04/2013 Unknown CHEM 14 9335248 PROT TOT 6.1 GM/DL 11/04/2013 Unknown CHEM 14 8951678 GLUCOSE 157 MG/DL 11/04/2013 Unknown CHEM 14 1560070 BICARB 27 MMOL/L 11/04/2013 Unknown CHEM 14 2516749 ANION GAP 9 MEQ/L 11/04/2013 Unknown FREE T4 9944983 FREE T4 1.44 NG/DL 11/04/2013 Unknown GFR CALC 9974378 GFR AA >60 ML/MIN 11/04/2013 Unknown GFR CALC 6114567 GFR NON-AA >60 ML/MIN 11/04/2013 Unknown TSH 2226308 TSH 0.841 uIU/ML 11/04/2013 Unknow n A1C HPLC 5540367 A1C HPLC 47358-2 7.2 % 11/04/2013 Unknown LIPID GRP HDL TEST 45 MG/DL 11/04/2013 Unknown LIPID GRP TRIG 104 MG/DL 11/04/2013 Unknown LIPID GRP TEST LDL 82 MG/DL 11/04/2013 Unknown LIPID GRP CHOL 148 MG/DL 11/04/2013 Unknown LIPID GRP RCHOL/HDL 3.29 RATIO 11/04/2013 Unknown CBC 7154962 WBC 6.2 10e9/L 11/04/2013 Unknown CBC 9562388 RBC 4.38 10e12/L 11/04/2013 Unknow n CBC 9927768 HGB 11.8 g/dL 11/04/2013 Unknown CBC 4817701 HCT DET 37.5 % 11/04/2013 Unknown CBC 0791048 MCV 85.6 fL 11/04/2013 Unknown CBC 1325851 MCH 26.9 pg 11/04/2013 Unknown CBC 1778283 MCHC 31.5 g/dL 11/04/2013 Unknown CBC 8188699 PLT 330 10e9/L 11/04/2013 Unknown CBC 9263725 MPV 10.6 fL 11/04/2013 Unknown CBC 4083458 TIM % 60.8 % 11/04/2013 Unknown CBC 5294621 LY % 22.1 % 11/04/2013 Unknown CBC 7715659 MON % 9.6 % 11/04/2013 Unknown CBC 8660483 EOS % 6.4 % 11/04/2013 Unknown CBC 1297978 BASO % 1.1 % 11/04/2013 Unknown CBC 8593654 RDW 15.6 % 11/04/2013 Unknown CBC 2824835 ABS TIM 3.77 10e9/L 11/04/2013 Unknown CBC 2894946 ABS LYMPH 1.37 10e9/L 11/04/2013 Unknown CBC 1177377 ABS MONO 0.60 10e9/L 11/04/2013 Unknown CBC 0031088 ABS EOS 0.40 10e9/L 11/04/2013 Unknown CBC 6737131 ABS BASO 0.07 10e9/L 11/04/2013 Unknown CBC 1519304 RDW-SD 48.0 fL 11/04/2013 Unknown DIGOXIN 4012772 DIGOXIN 0.5 NG/ML 11/04/2013 Unknown A1C HPLC 3219020 A1C HPLC 29703-5 7.6 % 07/28/2013 Unknown LIPID GRP 2677912 HDL TEST 38 MG/DL 07/28/2013 Unknown LIPID GRP 6914080 TRIG 137 MG/DL 07/28/2013 Unknown LIPID GRP 9700158 TEST LDL 73 MG/DL 07/28/2013 Unknown LIPID GRP 7989726 CHOL 138 MG/DL 07/28/2013 Unknown LIPID GRP 0257179 RCHOL/HDL 3.63 RATIO 07/28/2013 Unknown LIVER PNL 8686946 BILI DIR 0.2 MG/DL 07/28/2013 Unknown DIGOXIN 9875961 DIGOXIN 0.4 NG/ML 07/28/2013 Unknown CBC 5219145 WBC 7.2 10e9/L 07/28/2013 Unknown CBC 4228157 RBC 4.65 10e12/L 07/28/2013 Unknow n CBC 5226953 HGB 12.6 g/dL 07/28/2013 Unknown CBC 8487563 HCT DET 39.6 % 07/28/2013 Unknown CBC 8707189 MCV 85.2 fL 07/28/2013 Unknown CBC 3060863 MCH 27.1 pg 07/28/2013 Unknown CBC 9421134 MCHC 31.8 g/dL 07/28/2013 Unknown CBC 7258539 PLT 344 10e9/L 07/28/2013 Unknown CBC 4163358 MPV 10.7 fL 07/28/2013 Unknown CBC 0502296 TIM % 61.4 % 07/28/2013 Unknown CBC 5953037 LY % 22.4 % 07/28/2013 Unknown CBC 5213060 MON % 8.4 % 07/28/2013 Unknown CBC 8368352 EOS % 6.8 % 07/28/2013 Unknown CBC 4467932 BASO % 1.0 % 07/28/2013 Unknown CBC 3763056 RDW 15.5 % 07/28/2013 Unknown CBC 7413107 ABS TIM 4.42 10e9/L 07/28/2013 Unknown CBC 5352120 ABS LYMPH 1.61 10e9/L 07/28/2013 Unknown CBC 4224596 ABS MONO 0.60 10e9/L 07/28/2013 Unknown CBC 4772512 ABS EOS 0.49 10e9/L 07/28/2013 Unknown CBC 0487434 ABS BASO 0.07 10e9/L 07/28/2013 Unknown CBC 0093770 RDW-SD 47.2 fL 07/28/2013 Unknown GFR CALC 2908651 GFR AA >60 ML/MIN 07/28/2013 Unknown GFR CALC 5195640 GFR NON-AA >60 ML/MIN 07/28/2013 Unknown CHEM 14 2693671 AST 20 U/L 07/28/2013 Unknown CHEM 14 7527146 ALT 19 IU/L 07/28/2013 Unknown CHEM 14 5294795 BUN 13 MG/DL 07/28/2013 Unknown CHEM 14 4947904 ALBUMIN 4.1 GM/DL 07/28/2013 Unknown CHEM 14 6298736 CHLORIDE 102 MMOL/L 07/28/2013 Unknown CHEM 14 0123811 BILI TOT 0.7 MG/DL 07/28/2013 Unknown CHEM 14 5704514 ALK PHOS 62 U/L 07/28/2013 Unknown CHEM 14 5676685 SODIUM 139 MMOL/L 07/28/2013 Unknown CHEM 14 0738569 CREATININE 0.66 MG/DL 07/28/2013 Unknown CHEM 14 1749383 CALCIUM 9.3 MG/DL 07/28/2013 Unknown CHEM 14 3046024 POTASSIUM 4.4 MMOL/L 07/28/2013 Unknown CHEM 14 7314078 PROT TOT 6.2 GM/DL 07/28/2013 Unknown CHEM 14 5040247 GLUCOSE 160 MG/DL 07/28/2013 Unknown CHEM 14 9540682 BICARB 29 MMOL/L 07/28/2013 Unknown CHEM 14 4625411 ANION GAP 8 MEQ/L 07/28/2013 Unknown DIGOXIN 3455456 DIGOXIN 0.6 NG/ML 05/12/2013 Unknown GFR CALC 6812067 GFR AA >60 ML/MIN 04/29/2013 Unknown GFR CALC 4249043 GFR NON-AA >60 ML/MIN 04/29/2013 Unknown A1C 5454776 A1C HPLC 71292-8 7.5 % 04/29/2013 Unknown TSH 9319312 TSH 1.161 uIU/ML 04/29/2013 Unknow n CHEM 14 9526722 AST 14 U/L 04/29/2013 Unknown CHEM 14 1435432 ALT 14 IU/L 04/29/2013 Unknown CHEM 14 9045839 BUN 13 MG/DL 04/29/2013 Unknown CHEM 14 6453860 ALBUMIN 4.1 GM/DL 04/29/2013 Unknown CHEM 14 1906463 CHLORIDE 102 MMOL/L 04/29/2013 Unknown CHEM 14 2085857 BILI TOT 0.7 MG/DL 04/29/2013 Unknown CHEM 14 4935889 ALK PHOS 75 U/L 04/29/2013 Unknown CHEM 14 0984102 SODIUM 139 MMOL/L 04/29/2013 Unknown CHEM 14 8210067 CREATININE 0.62 MG/DL 04/29/2013 Unknown CHEM 14 2897894 CALCIUM 9.3 MG/DL 04/29/2013 Unknown CHEM 14 8504873 POTASSIUM 4.0 MMOL/L 04/29/2013 Unknown CHEM 14 8101648 PROT TOT 6.5 GM/DL 04/29/2013 Unknown CHEM 14 0451917 GLUCOSE 152 MG/DL 04/29/2013 Unknown CHEM 14 5334807 BICARB 31 MMOL/L 04/29/2013 Unknown CHEM 14 0727859 ANION GAP 6 MEQ/L 04/29/2013 Unknown CBC 7661257 WBC 7.4 10e9/L 04/29/2013 Unknown CBC 1197512 RBC 4.70 10e12/L 04/29/2013 Unknow n CBC 0614171 HGB 12.8 g/dL 04/29/2013 Unknown CBC 8861728 HCT DET 40.1 % 04/29/2013 Unknown CBC 6588557 MCV 85.3 fL 04/29/2013 Unknown CBC 5166721 MCH 27.2 pg 04/29/2013 Unknown CBC 1951120 MCHC 31.9 g/dL 04/29/2013 Unknown CBC 0826175 PLT 312 10e9/L 04/29/2013 Unknown CBC 9481178 MPV 10.4 fL 04/29/2013 Unknown CBC 0420035 TIM % 64.9 % 04/29/2013 Unknown CBC [id number] LY % 20.0 % 04/29/2013 Unknown CBC [id number] MON % 8.6 % 04/29/2013 Unknown CBC [id number] EOS % 5.3 % 04/29/2013 Unknown CBC [id number] BASO % 1.2 % 04/29/2013 Unknown CBC [id number] RDW 15.4 % 04/29/2013 Unknown CBC [id number] ABS TIM 4.80 10e9/L 04/29/2013 Unknown CBC [id number] ABS LYMPH 1.48 10e9/L 04/29/2013 Unknown CBC [id number] ABS MONO 0.64 10e9/L 04/29/2013 Unknown CBC [id number] ABS EOS 0.39 10e9/L 04/29/2013 Unknown CBC [id number] ABS BASO 0.09 10e9/L 04/29/2013 Unknown CBC [id number] RDW-SD 47.3 fL 04/29/2013 Unknown LIPID GRP HDL TEST 43 MG/DL 04/29/2013 Unknown LIPID GRP TRIG 111 MG/DL 04/29/2013 Unknown LIPID GRP TEST LDL 65 MG/DL 04/29/2013 Unknown LIPID GRP CHOL 130 MG/DL 04/29/2013 Unknown LIPID GRP RCHOL/HDL 3.02 RATIO 04/29/2013 Unknown TSH [id number] TSH 1.406 uIU/ML 12/28/2012 Unknow n A1C 2857310 A1C HPLC 14558-2 7.2 % 12/28/2012 Unknown LIPID GRP HDL TEST 54 MG/DL 12/27/2012 Unknown LIPID GRP TRIG 94 MG/DL 12/27/2012 Unknown LIPID GRP TEST LDL 42 MG/DL 12/27/2012 Unknown LIPID GRP CHOL 115 MG/DL 12/27/2012 Unknown LIPID GRP RCHOL/HDL 2.13 RATIO 12/27/2012 Unknown GFR CALC [id number] GFR AA >60 ML/MIN 12/27/2012 Unknown GFR CALC 4521575 GFR NON-AA >60 ML/MIN 12/27/2012 Unknown CHEM 14 [id number] AST 14 U/L 12/27/2012 Unknown CHEM 14 20280111 ALT 13 IU/L 12/27/2012 Unknown CHEM 14 [id number] BUN 13 MG/DL 12/27/2012 Unknown CHEM 14 [id number] ALBUMIN 4.5 GM/DL 12/27/2012 Unknown CHEM 14 [id number] CHLORIDE 105 MMOL/L 12/27/2012 Unknown CHEM 14 [id number] BILI TOT 0.8 MG/DL 12/27/2012 Unknown CHEM 14 [id number] ALK PHOS 69 U/L 12/27/2012 Unknown CHEM 14 [id number] SODIUM 142 MMOL/L 12/27/2012 Unknown CHEM 14 [id number] CREATININE 0.73 MG/DL 12/27/2012 Unknown CHEM 14 [id number] CALCIUM 9.7 MG/DL 12/27/2012 Unknown CHEM 14 [id number] POTASSIUM 4.1 MMOL/L 12/27/2012 Unknown CHEM 14 [id number] PROT TOT 6.8 GM/DL 12/27/2012 Unknown CHEM 14 [id number] GLUCOSE 133 MG/DL 12/27/2012 Unknown CHEM 14 [id number] BICARB 30 MMOL/L 12/27/2012 Unknown CHEM 14 [id number] ANION GAP 7 MEQ/L 12/27/2012 Unknown CBC [id number] WBC 6.8 10e9/L 12/27/2012 Unknown CBC [id number] RBC 4.72 10e12/L 12/27/2012 Unknow n CBC 5577076 HGB 12.5 g/dL 12/27/2012 Unknown CBC [id number] HCT DET 39.6 % 12/27/2012 Unknown CBC [id number] MCV 83.9 fL 12/27/2012 Unknown CBC [id number] MCH 26.5 pg 12/27/2012 Unknown CBC [id number] MCHC 31.6 g/dL 12/27/2012 Unknown CBC [id number] PLT 336 10e9/L 12/27/2012 Unknown CBC [id number] MPV 10.4 fL 12/27/2012 Unknown CBC [id number] TIM % 60.7 % 12/27/2012 Unknown CBC [id number] LY % 24.6 % 12/27/2012 Unknown CBC [id number] MON % 8.4 % 12/27/2012 Unknown CBC [id number] EOS % 5.3 % 12/27/2012 Unknown CBC [id number] BASO % 1.0 % 12/27/2012 Unknown CBC [id number] RDW 16.6 % 12/27/2012 Unknown CBC [id number] ABS TIM 4.13 10e9/L 12/27/2012 Unknown CBC [id number] ABS LYMPH 1.67 10e9/L 12/27/2012 Unknown CBC [id number] ABS MONO 0.57 10e9/L 12/27/2012 Unknown CBC [id number] ABS EOS 0.36 10e9/L 12/27/2012 Unknown CBC [id number] ABS BASO 0.07 10e9/L 12/27/2012 Unknown CBC [id number] RDW-SD 50.1 fL 12/27/2012 Unknown GFR CALC [id number] GFR AA >60 ML/MIN 08/27/2012 Unknown GFR CALC 7159435 GFR NON-AA >60 ML/MIN 08/27/2012 Unknown CHEM 14 [id number] AST 15 U/L 08/27/2012 Unknown CHEM 14 [id number] ALT 17 IU/L 08/27/2012 Unknown CHEM 14 [id number] BUN 14 MG/DL 08/27/2012 Unknown CHEM 14 [id number] ALBUMIN 4.2 GM/DL 08/27/2012 Unknown CHEM 14 [id number] CHLORIDE 103 MMOL/L 08/27/2012 Unknown CHEM 14 [id number] BILI TOT 0.6 MG/DL 08/27/2012 Unknown CHEM 14 [id number] ALK PHOS 86 U/L 08/27/2012 Unknown CHEM 14 [id number] SODIUM 141 MMOL/L 08/27/2012 Unknown CHEM 14 [id number] CREATININE 0.64 MG/DL 08/27/2012 Unknown CHEM 14 1275177 CALCIUM 9.5 MG/DL 08/27/2012 Unknown CHEM 14 4337528 POTASSIUM 4.1 MMOL/L 08/27/2012 Unknown CHEM 14 2229658 PROT TOT 6.1 GM/DL 08/27/2012 Unknown CHEM 14 6194453 GLUCOSE 151 MG/DL 08/27/2012 Unknown CHEM 14 7997264 BICARB 30 MMOL/L 08/27/2012 Unknown CHEM 14 2996609 ANION GAP 8 MEQ/L 08/27/2012 Unknown FREE T4 7252377 FREE T4 1.36 NG/DL 08/27/2012 Unknown CBC 2945578 WBC 7.8 10e9/L 08/27/2012 Unknown CBC 7586040 RBC 4.54 10e12/L 08/27/2012 Unknow n CBC 3360309 HGB 12.0 g/dL 08/27/2012 Unknown CBC 6503192 HCT DET 37.9 % 08/27/2012 Unknown CBC 3787076 MCV 83.5 fL 08/27/2012 Unknown CBC 7769435 MCH 26.4 pg 08/27/2012 Unknown CBC 3493535 MCHC 31.7 g/dL 08/27/2012 Unknown CBC 6600449 PLT 370 10e9/L 08/27/2012 Unknown CBC 0895449 MPV 10.7 fL 08/27/2012 Unknown CBC 5918209 TIM % 65.7 % 08/27/2012 Unknown CBC 7002577 LY % 19.5 % 08/27/2012 Unknown CBC [id number] MON % 9.0 % 08/27/2012 Unknown CBC 0591333 EOS % 5.0 % 08/27/2012 Unknown CBC 4771249 BASO % 0.8 % 08/27/2012 Unknown CBC 5375464 RDW 15.4 % 08/27/2012 Unknown CBC 5957980 ABS TIM 5.12 10e9/L 08/27/2012 Unknown CBC 3945906 ABS LYMPH 1.52 10e9/L 08/27/2012 Unknown CBC 7678610 ABS MONO 0.70 10e9/L 08/27/2012 Unknown CBC 9631642 ABS EOS 0.39 10e9/L 08/27/2012 Unknown CBC 3687107 ABS BASO 0.06 10e9/L 08/27/2012 Unknown CBC 2806258 RDW-SD 46.3 fL 08/27/2012 Unknown A1C HPLC 4729474 A1C HPLC 66944-4 7.3 % 08/27/2012 Unknown LIPID GRP HDL TEST 41 MG/DL 08/27/2012 Unknown LIPID GRP TRIG 120 MG/DL 08/27/2012 Unknown LIPID GRP TEST LDL 67 MG/DL 08/27/2012 Unknown LIPID GRP [id number] CHOL 132 MG/DL 08/27/2012 Unknown LIPID GRP RCHOL/HDL 3.22 RATIO 08/27/2012 Unknown TSH 2970491 TSH 0.933 uIU/ML 08/27/2012 Unknow n DIGOXIN 5716067 DIGOXIN 1.4 NG/ML 07/15/2012 Unknown CBC 3243564 WBC 6.3 10e9/L 07/15/2012 Unknown CBC 2417033 RBC 4.44 10e12/L 07/15/2012 Unknow n CBC 1515947 HGB 11.8 g/dL 07/15/2012 Unknown CBC 4825515 HCT DET 36.9 % 07/15/2012 Unknown CBC 3335614 MCV 83.1 fL 07/15/2012 Unknown CBC 6553852 MCH 26.6 pg 07/15/2012 Unknown CBC 2148641 MCHC 32.0 g/dL 07/15/2012 Unknown CBC 5648331 PLT 316 10e9/L 07/15/2012 Unknown CBC 5912916 MPV 10.3 fL 07/15/2012 Unknown CBC 7153584 TIM % 64.4 % 07/15/2012 Unknown CBC 1781067 LY % 19.6 % 07/15/2012 Unknown CBC [id number] MON % 9.1 % 07/15/2012 Unknown CBC 5654326 EOS % 6.1 % 07/15/2012 Unknown CBC 1383092 BASO % 0.8 % 07/15/2012 Unknown CBC 9763008 RDW 15.3 % 07/15/2012 Unknown CBC 5937299 ABS TIM 4.06 10e9/L 07/15/2012 Unknown CBC 4179944 ABS LYMPH 1.23 10e9/L 07/15/2012 Unknown CBC 0489583 ABS MONO 0.57 10e9/L 07/15/2012 Unknown CBC 7827373 ABS EOS 0.38 10e9/L 07/15/2012 Unknown CBC 2358154 ABS BASO 0.05 10e9/L 07/15/2012 Unknown CBC 4064790 RDW-SD 46.2 fL 07/15/2012 Unknown DIGOXIN 2311950 DIGOXIN 1.4 NG/ML 07/04/2012 Unknown BMP 4066492 GLUCOSE 137 MG/DL 07/04/2012 Unknown BMP 0704729 CREATININE 0.86 MG/DL 07/04/2012 Unknown BMP 0867551 BUN 14 MG/DL 07/04/2012 Unknown BMP 3682436 SODIUM 140 MMOL/L 07/04/2012 Unknown BMP 2703125 POTASSIUM 4.5 MMOL/L 07/04/2012 Unknown BMP 4059471 CHLORIDE 103 MMOL/L 07/04/2012 Unknown BMP 3965290 BICARB 28 MMOL/L 07/04/2012 Unknown BMP 3893270 ANION GAP 9 MEQ/L 07/04/2012 Unknown BMP 5089935 CALCIUM 9.7 MG/DL 07/04/2012 Unknown CBC 8862103 WBC 6.9 10e9/L 07/04/2012 Unknown CBC 8116254 RBC 4.56 10e12/L 07/04/2012 Unknow n CBC 1493112 HGB 12.2 g/dL 07/04/2012 Unknown CBC 6296082 HCT DET 38.1 % 07/04/2012 Unknown CBC 1150873 MCV 83.6 fL 07/04/2012 Unknown CBC 2726090 MCH 26.8 pg 07/04/2012 Unknown CBC 5349017 MCHC 32.0 g/dL 07/04/2012 Unknown CBC 9316526 PLT 382 10e9/L 07/04/2012 Unknown CBC 1058887 MPV 10.6 fL 07/04/2012 Unknown CBC 9377676 TIM % 58.7 % 07/04/2012 Unknown CBC 3717652 LY % 23.7 % 07/04/2012 Unknown CBC 3884422 MON % 10.2 % 07/04/2012 Unknown CBC 0980802 EOS % 6.4 % 07/04/2012 Unknown CBC 2209354 BASO % 1.0 % 07/04/2012 Unknown CBC 0565405 RDW 15.8 % 07/04/2012 Unknown CBC 2031750 ABS TIM 4.05 10e9/L 07/04/2012 Unknown CBC 5628806 ABS LYMPH 1.64 10e9/L 07/04/2012 Unknown CBC 8137082 ABS MONO 0.70 10e9/L 07/04/2012 Unknown CBC 7205192 ABS EOS 0.44 10e9/L 07/04/2012 Unknown CBC 3436245 ABS BASO 0.07 10e9/L 07/04/2012 Unknown CBC 0971171 RDW-SD 47.5 fL 07/04/2012 Unknown GFR CALC 2665274 GFR AA >60 ML/MIN 07/04/2012 Unknown GFR CALC 6650923 GFR NON-AA >60 ML/MIN 07/04/2012 Unknown A1C HPLC 8780791 A1C HPLC 26452-4 7.1 % 03/27/2012 Unknown GFR CALC 8058017 GFR AA >60 ML/MIN 03/26/2012 Unknown GFR CALC 6103150 GFR NON-AA >60 ML/MIN 03/26/2012 Unknown LIPID GRP HDL TEST 40 MG/DL 03/26/2012 Unknown LIPID GRP TRIG 93 MG/DL 03/26/2012 Unknown LIPID GRP 7877124 TEST LDL 62 MG/DL 03/26/2012 Unknown LIPID GRP CHOL 121 MG/DL 03/26/2012 Unknown LIPID GRP 8564692 RCHOL/HDL 3.03 RATIO 03/26/2012 Unknown TSH 3350791 TSH 0.842 uIU/ML 03/26/2012 Unknow n FREE T4 1264672 FREE T4 1.30 NG/DL 03/26/2012 Unknown CBC 1819478 WBC 5.3 10e9/L 03/26/2012 Unknown CBC 4853269 RBC 4.70 10e12/L 03/26/2012 Unknow n CBC 7423394 HGB 12.1 g/dL 03/26/2012 Unknown CBC 9894280 HCT DET 38.1 % 03/26/2012 Unknown CBC 3651302 MCV 81.1 fL 03/26/2012 Unknown CBC 8259287 MCH 25.7 pg 03/26/2012 Unknown CBC 5950997 MCHC 31.8 g/dL 03/26/2012 Unknown CBC 4642062 PLT 315 10e9/L 03/26/2012 Unknown CBC 6880780 MPV 10.9 fL 03/26/2012 Unknown CBC 2573294 TIM % 54.8 % 03/26/2012 Unknown CBC 3656185 LY % 25.8 % 03/26/2012 Unknown CBC 0008357 MON % 11.6 % 03/26/2012 Unknown CBC 2080197 EOS % 7.0 % 03/26/2012 Unknown CBC 1951897 BASO % 0.8 % 03/26/2012 Unknown CBC 9771446 RDW 16.7 % 03/26/2012 Unknown CBC 8914842 ABS TIM 2.90 10e9/L 03/26/2012 Unknown CBC 9883312 ABS LYMPH 1.37 10e9/L 03/26/2012 Unknown CBC 6785506 ABS MONO 0.61 10e9/L 03/26/2012 Unknown CBC 1634212 ABS EOS 0.37 10e9/L 03/26/2012 Unknown CBC 7464516 ABS BASO 0.04 10e9/L 03/26/2012 Unknown CBC 7380618 RDW-SD 48.8 fL 03/26/2012 Unknown CHEM 14 5965111 AST 18 U/L 03/26/2012 Unknown CHEM 14 5847098 ALT 17 IU/L 03/26/2012 Unknown CHEM 14 9852226 BUN 16 MG/DL 03/26/2012 Unknown CHEM 14 9440148 ALBUMIN 4.3 GM/DL 03/26/2012 Unknown CHEM 14 3425082 CHLORIDE 103 MMOL/L 03/26/2012 Unknown CHEM 14 1946093 BILI TOT 0.9 MG/DL 03/26/2012 Unknown CHEM 14 7156602 ALK PHOS 79 U/L 03/26/2012 Unknown CHEM 14 9940955 SODIUM 140 MMOL/L 03/26/2012 Unknown CHEM 14 7721923 CREATININE 0.70 MG/DL 03/26/2012 Unknown CHEM 14 1540748 CALCIUM 9.6 MG/DL 03/26/2012 Unknown CHEM 14 6969210 POTASSIUM 4.1 MMOL/L 03/26/2012 Unknown CHEM 14 6519454 PROT TOT 6.3 GM/DL 03/26/2012 Unknown CHEM 14 8279577 GLUCOSE 142 MG/DL 03/26/2012 Unknown CHEM 14 0085432 BICARB 29 MMOL/L 03/26/2012 Unknown CHEM 14 7058423 ANION GAP 8 MEQ/L 03/26/2012 Unknown LIPID GRP 0763608 HDL TEST 42 MG/DL 01/08/2012 Unknown LIPID GRP 0815733 TRIG 105 MG/DL 01/08/2012 Unknown LIPID GRP 0241191 TEST LDL 51 MG/DL 01/08/2012 Unknown LIPID GRP 2541953 CHOL 114 MG/DL 01/08/2012 Unknown LIPID GRP 8717673 RCHOL/HDL 2.71 RATIO 01/08/2012 Unknown CHEM 14 3021432 AST 24 U/L 01/08/2012 Unknown CHEM 14 3692867 ALT 28 IU/L 01/08/2012 Unknown CHEM 14 0970760 BUN 15 MG/DL 01/08/2012 Unknown CHEM 14 8646398 ALBUMIN 4.3 GM/DL 01/08/2012 Unknown CHEM 14 0900959 CHLORIDE 104 MMOL/L 01/08/2012 Unknown CHEM 14 7066919 BILI TOT 0.6 MG/DL 01/08/2012 Unknown CHEM 14 7828828 ALK PHOS 83 U/L 01/08/2012 Unknown CHEM 14 3671896 SODIUM 141 MMOL/L 01/08/2012 Unknown CHEM 14 2887863 CREATININE 0.64 MG/DL 01/08/2012 Unknown CHEM 14 0325385 CALCIUM 9.4 MG/DL 01/08/2012 Unknown CHEM 14 6970138 POTASSIUM 4.0 MMOL/L 01/08/2012 Unknown CHEM 14 7999774 PROT TOT 6.7 GM/DL 01/08/2012 Unknown CHEM 14 2278478 GLUCOSE 145 MG/DL 01/08/2012 Unknown CHEM 14 9445158 BICARB 28 MMOL/L 01/08/2012 Unknown CHEM 14 9546062 ANION GAP 9 MEQ/L 01/08/2012 Unknown CBC 3202630 WBC 5.8 10e9/L 01/08/2012 Unknown CBC 8921955 RBC 4.36 10e12/L 01/08/2012 Unknow n CBC 9440387 HGB 11.6 g/dL 01/08/2012 Unknown CBC 0352847 HCT DET 37.4 % 01/08/2012 Unknown CBC 8205172 MCV 85.8 fL 01/08/2012 Unknown CBC 5722215 MCH 26.6 pg 01/08/2012 Unknown CBC 5694986 MCHC 31.0 g/dL 01/08/2012 Unknown CBC 4105199 PLT 319 10e9/L 01/08/2012 Unknown CBC 1196288 MPV 10.5 fL 01/08/2012 Unknown CBC 7501549 TIM % 62.2 % 01/08/2012 Unknown CBC 6679850 LY % 20.7 % 01/08/2012 Unknown CBC 9916397 MON % 9.3 % 01/08/2012 Unknown CBC 5207233 EOS % 6.4 % 01/08/2012 Unknown CBC 9035259 BASO % 1.4 % 01/08/2012 Unknown CBC 9262639 RDW 14.9 % 01/08/2012 Unknown CBC 7333688 ABS TIM 3.61 10e9/L 01/08/2012 Unknown CBC 3116508 ABS LYMPH 1.20 10e9/L 01/08/2012 Unknown CBC 0220327 ABS MONO 0.54 10e9/L 01/08/2012 Unknown CBC 4002500 ABS EOS 0.37 10e9/L 01/08/2012 Unknown CBC 0363868 ABS BASO 0.08 10e9/L 01/08/2012 Unknown CBC 0760789 RDW-SD 44.9 fL 01/08/2012 Unknown GFR CALC 5212363 GFR AA >60 ML/MIN 01/08/2012 Unknown GFR CALC 9669972 GFR NON-AA >60 ML/MIN 01/08/2012 Unknown A1C HPLC 4120812 A1C HPLC 06874-9 7.2 % 01/08/2012 Unknown Procedures Procedure Codes Date Iaad ia sarscov & influenza virus types a&b CPT-4: 11565 06/05/2022 ADMIN INFLUENZA VIRUS VAC CPT-4: G0008 04/05/2021 IIV NO PRSV INCREASED AG IM CPT-4: 42673 04/05/2021 ADMIN INFLUENZA VIRUS VAC CPT-4: G0008 04/07/2020 IIV NO PRSV INCREASED AG IM CPT-4: 18299 04/07/2020 IIV4 VACC NO PRSV 0.5 ML IM CPT-4: 87351 05/13/2019 IIV4 VACC NO PRSV 0.5 ML IM CPT-4: 73278 05/13/2019 ADMIN INFLUENZA VIRUS VAC CPT-4: G0008 05/13/2019 THER/PROPH/DIAG INJ SC/IM CPT-4: 95585 09/23/2018 TRIAMCINOLONE ACET INJ NOS 10 mg CPT-4: J3301 019 URINALYSIS NONAUTO W/O SCOPE CPT-4: 81444 12/31/2017 OCCULT BLOOD FECES CPT-4: 75982 11/28/2017 TRIAMCINOLONE ACET INJ NOS 10 mg CPT-4: J3301 018 REMOVAL OF IMPACTED WAX CPT-4: G0268 05/29/2017 THER/PROPH/DIAG INJ SC/IM CPT-4: 31317 05/14/2017 KETOROLAC TROMETHAMINE INJ 15 mg CPT-4: J1885 017 ADMIN INFLUENZA VIRUS VAC CPT-4: G0008 04/30/2017 IIV NO PRSV INCREASED AG IM CPT-4: 11796 04/30/2017 THER/PROPH/DIAG INJ SC/IM CPT-4: 49150 03/06/2017 TRIAMCINOLONE ACET INJ NOS 10 mg CPT-4: J3301 017 THER/PROPH/DIAG INJ SC/IM CPT-4: 55613 09/04/2016 TRIAMCINOLONE ACET INJ NOS 10 mg CPT-4: J3301 017 THER/PROPH/DIAG INJ SC/IM CPT-4: 94602 11/11/2015 TRIAMCINOLONE ACET INJ NOS 10 mg CPT-4: J3301 016 TRIAMCINOLONE ACET INJ NOS 10 mg CPT-4: J3301 016 THER/PROPH/DIAG INJ SC/IM CPT-4: 82880 10/25/2015 THER/PROPH/DIAG INJ SC/IM CPT-4: 77566 08/17/2014 TRIAMCINOLONE ACET INJ NOS 10 mg CPT-4: J3301 015 TRIAMCINOLONE ACET INJ NOS 10 mg CPT-4: J3301 014 THER/PROPH/DIAG INJ SC/IM CPT-4: 32479 04/13/2014 ROUTINE VENIPUNCTURE CPT-4: 95554 11/04/2013 ROUTINE VENIPUNCTURE CPT-4: 94240 05/12/2013 ADMIN INFLUENZA VIRUS VAC CPT-4: G0008 05/12/2013 FLULAVAL VACC, 3 YRS & >, IM CPT-4: Q2036 05/12/2013 TRIAMCINOLONE ACET INJ NOS 10 mg CPT-4: J3301 013 THER/PROPH/DIAG INJ SC/IM CPT-4: 59100 10/07/2012 ROUTINE VENIPUNCTURE CPT-4: 89153 08/27/2012 ROUTINE VENIPUNCTURE CPT-4: 39713 07/15/2012 ROUTINE VENIPUNCTURE CPT-4: 84998 03/26/2012 ADMIN INFLUENZA VIRUS VAC CPT-4: G0008 03/26/2012 FLULAVAL VACC, 3 YRS & >, IM CPT-4: Q2036 03/26/2012 Pneumococcal Polysaccharide Vaccine, 23-Valent, Ad CPT-4: 90 732 03/26/2012 ROUTINE VENIPUNCTURE CPT-4: 14658 01/08/2012 ROUTINE VENIPUNCTURE CPT-4: 49000 11/06/2011 ROUTINE VENIPUNCTURE CPT-4: 44433 10/25/2011 ROUTINE VENIPUNCTURE CPT-4: 85908 10/16/2011 ROUTINE VENIPUNCTURE CPT-4: 87228 09/25/2011 INJ TRIGGER POINT 1/2 MUSCL CPT-4: 82708 07/31/2011 TRIAMCINOLONE ACET INJ NOS 10 mg CPT-4: J3301 012 PRESCRIP TRANSMIT VIA ERX SY CPT-4: G8553 05/22/2011 ADMIN INFLUENZA VIRUS VAC CPT-4: G0008 05/02/2011 FLULAVAL VACC, 3 YRS & >, IM CPT-4: Q2036 05/02/2011 ROUTINE VENIPUNCTURE CPT-4: 78144 05/02/2011 Vital Signs Date Vital 06/20/2022 Blood Pressure 1: 130/76 Code: 8480-6 Heart Rate 1: 53 bpm Height: Code: 8302-2 SpO2: 99% Weight: Code: 12904-8 06/05/2022 Heart Rate 1: 85 bpm Height: Code: 8302-2 Respiratory Rate: 17 bpm Weight: Code: 04060-4 02/23/2022 Blood Pressure 1: 138/72 Code: 8480-6 Heart Rate 1: 65 bpm Height: 5'1" Code: 8302-2 SpO2: 98% Temperature: 37.2 (C) / 98.9 (F) Weight: Code: 21570-9 02/20/2022 Blood Pressure 1: 140/76 Code: 8480-6 BMI: 29.5 Code: 40281-2 Heart Rate 1: 62 bpm Height: 5'1" Code: 8302-2 SpO2: 99% Temperature: 3 6.8 (C) / 98.2 (F) Weight: 156 lbs Code: 83334-4 02/06/2022 Blood Pressure 1: 132/76 Code: 8480-6 BMI: 29.5 Code: 80159-1 Heart Rate 1: 52 bpm Height: 5'1" Code: 8302-2 Respiratory Rate: 17 bpm SpO2: 97% Temperature: 36.4 (C) / 97.5 (F) Weight: 156 lbs Code: 76395-8 08/08/2021 Blood Pressure 1: 142/90 Code: 8480-6 BMI: 30.8 Code: 03042-0 Heart Rate 1: 63 bpm Height: 5'1" Code: 8302-2 Respiratory Rate: 17 bpm SpO2: 96% Temperature: 36.3 (C) / 97.4 (F) Weight: 163 lbs Code: 59837-2 04/05/2021 Blood Pressure 1: 160/98 Code: 8480-6 BMI: 30.4 Code: 48993-0 Heart Rate 1: 63 bpm Height: 5'1" Code: 8302-2 Respiratory Rate: 16 bpm SpO2: 96% Temperature: 36.5 (C) / 97.7 (F) Weight: 161 lbs Code: 20369-9 11/30/2020 Blood Pressure 1: 134/70 Code: 8480-6 BMI: 31.4 Code: 00581-6 Heart Rate 1: 81 bpm Height: 5'1" Code: 8302-2 Respiratory Rate: 16 bpm SpO2: 98% Temperature: 36.3 (C) / 97.3 (F) Weight: 166 lbs Code: 38872-2 08/05/2020 Blood Pressure 1: 180/80 Code: 8480-6 BMI: 31.2 Code: 90561-3 Heart Rate 1: 56 bpm Height: 5'1" Code: 8302-2 Respiratory Rate: 18 bpm SpO2: 97% Temperature: 36.1 (C) / 97.0 (F) Weight: 165 lbs Code: 33910-5 04/07/2020 Blood Pressure 1: 142/86 Code: 8480-6 BMI: 31.0 Code: 51824-7 Heart Rate 1: 67 bpm Height: 5'1" Code: 8302-2 SpO2: 99% Temperature: 3 6.7 (C) / 98.1 (F) Weight: 164 lbs Code: 25758-5 12/09/2019 Height: Code: 8302-2 Weight: Code: 294 63-7 09/09/2019 Blood Pressure 1: 142/80 Code: 8480-6 BMI: 31.0 Code: 72570-7 Heart Rate 1: 70 bpm Height: 5'1" Code: 8302-2 Respiratory Rate: 16 bpm SpO2: 98% Weight: 164 lbs Code: 25492-2 05/13/2019 Blood Pressure 1: 160/80 Code: 8480-6 BMI: 30.4 Code: 34070-0 Heart Rate 1: 68 bpm Height: 5'1" Code: 8302-2 SpO2: 97% Weight: 161 lb s Code: 05414-7 02/05/2019 Blood Pressure 1: 140/82 Code: 8480-6 BMI: 30.5 Code: 32946-4 Heart Rate 1: 76 bpm Height: 5'1" Code: 8302-2 SpO2: 97% Weight: 161 lb s 10 oz Code: 67321-9 01/21/2019 Blood Pressure 1: 136/76 Code: 8480-6 BMI: 31.0 Code: 12728-0 Heart Rate 1: 80 bpm Height: 5'1" Code: 8302-2 SpO2: 97% Weight: 164 lb s Code: 51381-5 09/23/2018 Blood Pressure 1: 132/80 Code: 8480-6 BMI: 30.4 Code: 43692-1 Heart Rate 1: 67 bpm Height: 5'1" Code: 8302-2 SpO2: 97% Weight: 161 lb s Code: 98135-8 05/27/2018 Blood Pressure 1: 128/76 Code: 8480-6 BMI: 28.9 Code: 73170-1 Heart Rate 1: 74 bpm Height: 5'1" Code: 8302-2 SpO2: 99% Weight: 153 lb s Code: 64441-2 01/21/2018 Blood Pressure 1: 132/78 Code: 8480-6 BMI: 28.7 Code: 38880-0 Heart Rate 1: 112 bpm Height: 5'1" Code: 8302-2 SpO2: 98% Weight: 152 lb s Code: 33270-7 12/04/2017 Blood Pressure 1: 140/74 Code: 8480-6 BMI: 27.6 Code: 90789-4 Heart Rate 1: 76 bpm Height: 5'1" Code: 8302-2 SpO2: 97% Weight: 146 lb s Code: 40596-8 11/13/2017 Blood Pressure 1: 166/78 Code: 8480-6 BMI: 27.4 Code: 37860-6 Heart Rate 1: 78 bpm Height: 5'1" Code: 8302-2 SpO2: 98% Weight: 145 lb s Code: 60510-3 10/30/2017 Blood Pressure 1: 148/72 Code: 8480-6 BMI: 27.8 Code: 99131-8 Heart Rate 1: 92 bpm Height: 5'1" Code: 8302-2 SpO2: 96% Weight: 147 lb s Code: 84197-1 09/20/2017 Blood Pressure 1: 146/68 Code: 8480-6 BMI: 28.2 Code: 61153-1 Heart Rate 1: 66 bpm Height: 5'1" Code: 8302-2 SpO2: 99% Weight: 149 lb s Code: 79398-7 05/29/2017 Blood Pressure 1: 156/82 Code: 8480-6 BMI: 28.7 Code: 54971-3 Heart Rate 1: 71 bpm Height: 5'1" Code: 8302-2 SpO2: 96% Weight: 152 lb s Code: 63301-3 05/14/2017 Blood Pressure 1: 150/88 Code: 8480-6 BMI: 28.5 Code: 82743-0 Heart Rate 1: 71 bpm Height: 5'1" Code: 8302-2 SpO2: 98% Weight: 151 lb s Code: 28869-7 03/06/2017 Blood Pressure 1: 148/66 Code: 8480-6 BMI: 28.5 Code: 55975-4 Heart Rate 1: 78 bpm Height: 5'1" Code: 8302-2 SpO2: 98% Weight: 151 lb s Code: 00045-8 11/01/2016 Blood Pressure 1: 150/84 Code: 8480-6 BMI: 29.1 Code: 13475-5 Heart Rate 1: 71 bpm Height: 5'1" Code: 8302-2 SpO2: 97% Weight: 154 lb s Code: 03776-5 10/18/2016 Blood Pressure 1: 156/98 Code: 8480-6 Heart Rate 1: 68 bpm Height: 5'1" Code: 8302-2 SpO2: 98% Weight: Code: 66115-2 10/12/2016 Blood Pressure 1: 142/76 Code: 8480-6 BMI: 30.0 Code: 17044-4 Heart Rate 1: 76 bpm Height: 5'1" Code: 8302-2 SpO2: 95% Weight: 159 lb s Code: 35294-4 09/04/2016 Blood Pressure 1: 148/84 Code: 8480-6 Bl ood Pressure 1: 120/70 Code: 8480-6 BMI: 30.0 Code: 51363-9 Heart Rate 1: 72 bpm Height: 5'1" Code: 8302-2 SpO2: 94% Weight: 159 lbs Code: 59248-2 05/30/2016 Blood Pressure 1: 152/84 Code: 8480-6 BMI: 29.9 Code: 57262-5 Heart Rate 1: 76 bpm Height: 5'1" Code: 8302-2 SpO2: 97% Weight: 158 lb s 8 oz Code: 43189-2 05/01/2016 Blood Pressure 1: 146/60 Code: 8480-6 BMI: 29.9 Code: 95232-7 Heart Rate 1: 72 bpm Height: 5'1" Code: 8302-2 SpO2: 97% Weight: 158 lb s Code: 18858-2 02/29/2016 Blood Pressure 1: 152/82 Code: 8480-6 BMI: 30.4 Code: 16552-1 Heart Rate 1: 71 bpm Height: 5'1" Code: 8302-2 SpO2: 96% Weight: 161 lb s Code: 80712-1 02/03/2016 Blood Pressure 1: 148/88 Code: 8480-6 BMI: 30.6 Code: 98208-9 Heart Rate 1: 72 bpm Height: 5'1" Code: 8302-2 SpO2: 98% Weight: 162 lb s Code: 72968-2 12/21/2015 Blood Pressure 1: 180/78 Code: 8480-6 BMI: 30.9 Code: 80958-8 Heart Rate 1: 64 bpm Height: 5'1" Code: 8302-2 SpO2: 97% Weight: 163 lb s 8 oz Code: 35421-4 10/25/2015 Blood Pressure 1: 150/78 Code: 8480-6 BMI: 31.0 Code: 01405-8 Heart Rate 1: 73 bpm Height: 5'1" Code: 8302-2 SpO2: 98% Weight: 164 lb s Code: 25471-1 10/19/2015 Blood Pressure 1: 122/72 Code: 8480-6 BMI: 31.6 Code: 57396-7 Heart Rate 1: 88 bpm Height: 5'1" Code: 8302-2 SpO2: 98% Weight: 167 lb s Code: 30382-4 06/22/2015 Blood Pressure 1: 150/82 Code: 8480-6 BMI: 31.4 Code: 97983-3 Heart Rate 1: 86 bpm Height: 5'1" Code: 8302-2 SpO2: 96% Weight: 166 lb s Code: 28011-8 12/22/2014 Blood Pressure 1: 160/92 Code: 8480-6 BMI: 31.2 Code: 19748-8 Heart Rate 1: 85 bpm Height: 5'1" Code: 8302-2 SpO2: 97% Weight: 165 lb s Code: 80301-6 08/17/2014 Blood Pressure 1: 138/80 Code: 8480-6 BMI: 31.6 Code: 94104-8 Heart Rate 1: 77 bpm Height: 5'1" Code: 8302-2 SpO2: 97% Weight: 167 lb s Code: 63020-8 04/13/2014 Blood Pressure 1: 144/88 Code: 8480-6 BMI: 31.6 Code: 89053-0 Heart Rate 1: 90 bpm Height: 5'1" Code: 8302-2 Weight: 167 lbs Code: 62079 -7 12/11/2013 Blood Pressure 1: 168/90 Code: 8480-6 BMI: 32.3 Code: 39306-6 Heart Rate 1: 72 bpm Height: 5'1" Code: 8302-2 Weight: 171 lbs Code: 48085 -7 11/10/2013 Blood Pressure 1: 150/80 Code: 8480-6 BMI: 32.3 Code: 77236-0 Heart Rate 1: 76 bpm Height: 5'1" Code: 8302-2 Weight: 171 lbs Code: 30708 -7 08/11/2013 Blood Pressure 1: 152/80 Code: 8480-6 BMI: 32.5 Code: 68329-6 Heart Rate 1: 92 bpm Height: 5'1" Code: 8302-2 Temperature: 36.7 (C) / 98.0 (F) Weight: 172 lbs Code: 90839-8 05/12/2013 Blood Pressure 1: 142/102 Code: 8480-6 B lood Pressure 2: 144/98 Code: 8480-6 BMI: 34.2 Code: 94649-1 Heart Rate 1: 80 bpm Height: 5'1" Code: 8302-2 Weight: 181 lbs Code: 29965-6 01/06/2013 Blood Pressure 1: 138/76 Code: 8480-6 BMI: 34.6 Code: 14376-9 Heart Rate 1: 64 bpm Height: 5'1" Code: 8302-2 Weight: 183 lbs Code: 03078 -7 10/07/2012 Blood Pressure 1: 146/76 Code: 8480-6 BMI: 35.6 Code: 92980-9 Heart Rate 1: 76 bpm Height: 5'1" Code: 8302-2 Respiratory Rate: 20 bpm Weight: 1 88 lbs 8 oz Code: 55806-3 09/11/2012 Blood Pressure 1: 158/92 Code: 8480-6 BMI: 35.7 Code: 67796-4 Heart Rate 1: 76 bpm Height: 5'1" Code: 8302-2 Weight: 189 lbs Code: 60442 -7 07/15/2012 Blood Pressure 1: 158/100 Code: 8480-6 BMI: 36.3 Code: 73552-0 Heart Rate 1: 72 bpm Height: 5'1" Code: 8302-2 Respiratory Rate: 20 bpm Weight: 1 92 lbs Code: 79212-1 05/02/2012 Blood Pressure 1: 156/80 Code: 8480-6 BMI: 35.9 Code: 26390-0 Heart Rate 1: 72 bpm Height: 5'1" Code: 8302-2 Weight: 190 lbs Code: 85639 -7 03/28/2012 Blood Pressure 1: 133/88 Code: 8480-6 Heart Rate 1: 78 bpm Weight: 189 lbs Code: 35956-2 11/27/2011 Blood Pressure 1: 178/80 Code: 8480-6 BMI: 36.7 Code: 29798-3 Heart Rate 1: 72 bpm Height: 5'1" Code: 8302-2 Respiratory Rate: 20 bpm Weight: 1 94 lbs Code: 61306-9 10/25/2011 Blood Pressure 1: 122/62 Code: 8480-6 BMI: 37.0 Code: 24301-7 Heart Rate 1: 80 bpm Height: 5'1" Code: 8302-2 Respiratory Rate: 16 bpm Weight: 1 96 lbs Code: 89355-2 10/16/2011 Blood Pressure 1: 136/70 Code: 8480-6 He art Rate 1: 76 bpm 10/11/2011 Blood Pressure 1: 132/60 Code: 8480-6 Heart Rate 1: 84 bpm Respiratory Rate: 20 bpm Weight: 194 lbs Code: 17145-2 10/04/2011 Blood Pressure 1: 152/90 Code: 8480-6 Heart Rate 1: 88 bpm Respiratory Rate: 20 bpm Weight: 193 lbs Code: 65582-5 09/25/2011 Blood Pressure 1: 146/78 Code: 8480-6 Heart Rate 1: 80 bpm Weight: 194 lbs Code: 00023-7 07/31/2011 Blood Pressure 1: 128/78 Code: 8480-6 Bl ood Pressure 2: / Code: 8480-6 BMI: 37.1 Code: 43740-9 Heart Rate 1: 72 bpm Height: 5'1" Code: 8302-2 Respiratory Rate: 16 bpm SpO2: % Temperature: .0 (C) / 32.0 (F) Weig ht: 196 lbs 8 oz Code: 55332-7 05/22/2011 Blood Pressure 1: 147/71 Code: 8480-6 BMI: 18.7 Code: 19529-4 Heart Rate 1: 77 bpm Height: 7'1" Code: 8302-2 Weight: 192 lbs Code: 29932 -7 05/05/2011 Blood Pressure 1: 178/88 Code: 8480-6 BMI: 37.4 Code: 99191-7 Heart Rate 1: 80 bpm Height: 5' Code: 8302-2 Respiratory Rate: 16 bpm Weight: 193 lbs Code: 91947-9 Functional Status No Functional Status data Reason For Visit Reason For Visit Effective Dates Notes hypertension 06/20/2022 diabetes mellitus 06/20/2022 hypothyroid 06/20/2022 [...] Encounter Performer Location Location Address Codes Date ([id number]) [id number] EST. PATIENT, LEVEL IV Diagnosis: Essential (primary) hypertension[ICD10: I10] Diagnosis: Atrophy of thyroid (acquired)[ICD10: E03.4] Diagnosis: Type 2 diabetes mellitus with hyperglycemia[ICD10: E11.65] Clarice Elaine MD, [facility] [address] [place] [address] CPT-4: 59349 06/20/2022 ([id number]) 20191 EST. PATIENT, LEVEL IV Diagnosis: Cough in adult[ICD10: R05.9] Diagnosis: Gastro-esophageal reflux disease with esophagitis[ICD10: K21.00] Diagnosis: Esophageal pain[ICD10: K22.89] Clarice Elaine MD, [facility] [address] [place] [address] CPT-4: 27027 06/05 ([id number]) 77310 EST. PATIENT, LEVEL IV Diagnosis: Pancreatic cyst[ICD10: K86.2] Diagnosis: Rash and nonspecific skin eruption[ICD10: R21] Diagnosis: Cyst of buttocks[ICD10: L72.9] Clarice Elaine MD, [facility] [address] [place] [address] CPT-4: 76213 02/23 ([id number]) 86778 EST. PATIENT, LEVEL III Diagnosis: Cellulitis of left buttock[ICD10: L03.317] Socorro Elaine MD, [facility] [address] [place] [address] CPT-4: 9921 3 02/20/2022 ([id number]) 19517 EST. PATIENT, LEVEL IV Diagnosis: Essential (primary) hypertension[ICD10: I10] Diagnosis: Type 2 diabetes mellitus with hyperglycemia[ICD10: OJO2044] Diagnosis: Atrophy of thyroid (acquired)[ICD10: E03.4] Diagnosis: Paroxysmal atrial fibrillation[ICD10: I48.0] Clarice Elaine MD, [facility] [address] [place] [address] CPT-4: 9921 4 02/06/2022 ([id number]) 95134 EST. PATIENT, LEVEL IV Diagnosis: Essential (primary) hypertension[ICD10: I10] Diagnosis: Mild intermittent asthma in adult without complication[ICD10: J45.21] Diagnosis: Atrophy of thyroid (acquired)[ICD10: E03.4] Diagnosis: Type 2 diabetes mellitus without complications[ICD10: E11.9] Clarice Elaine MD, [facility] [address] [place] [address] CPT-4: 71515 08/08/2021 ([id number]) 00891 EST. PATIENT, LEVEL IV Diagnosis: Essential (primary) hypertension[ICD10: I10] Diagnosis: Mild intermittent asthma in adult without complication[ICD10: J45.21] Diagnosis: Atrophy of thyroid (acquired)[ICD10: E03.4] Diagnosis: Type 2 diabetes mellitus without complications[ICD10: E11.9] Clarice Elaine MD, [facility] [address] [place] [address] CPT-4: 67648 04/05/2021 ([id number]) 49219 EST. PATIENT, LEVEL IV Diagnosis: Essential (primary) hypertension[ICD10: I10] Diagnosis: Atrophy of thyroid (acquired)[ICD10: E03.4] Diagnosis: Type 2 diabetes mellitus without complications[ICD10: E11.9] Clarice Elaine MD, [facility] [address] [place] [address] CPT-4: 94244 11/30/2020 ([id number]) 39604 EST. PATIENT, LEVEL IV Diagnosis: Atrophy of thyroid (acquired)[ICD10: E03.4] Diagnosis: Essential (primary) hypertension[ICD10: I10] Diagnosis: Type 2 diabetes mellitus with hyperglycemia[ICD10: E11.65] Diagnosis: Paroxysmal atrial fibrillation[ICD10: I48.0] Clarice Elaine MD, [facility] [address] [place] [address] CPT-4: 9921 4 08/05/2020 ([id number]) 68565 EST. PATIENT, LEVEL IV Diagnosis: Influenza vaccine administered[ICD10: Z23] Diagnosis: Essential (primary) hypertension[ICD10: I10] Diagnosis: Atrophy of thyroid (acquired)[ICD10: E03.4] Diagnosis: Type 2 diabetes mellitus without complications[ICD10: E11.9] Clarice Elaine MD, [facility] [address] [place] [address] CPT-4: 08564 04/07/2020 ([id number]) 81098 EST. PATIENT, LEVEL III Diagnosis: Type 2 diabetes mellitus without complications[ICD10: E11.9] Clarice Elaine MD, [facility] [address] [place] [address] CPT-4: 21297 02/12/2020 ([id number]) 96251 EST. PATIENT, LEVEL III Diagnosis: Essential (primary) hypertension[ICD10: I10] Diagnosis: Type 2 diabetes mellitus without complications[ICD10: E11.9] Clarice Elaine [facility] [address], [place] [address] CPT-4: 24455 12/09/2019 ([id number]) 38032 EST. PATIENT, LEVEL IV Diagnosis: Essential (primary) hypertension[ICD10: I10] Diagnosis: Type 2 diabetes mellitus with hyperglycemia[ICD10: E11.65] Diagnosis: Atrophy of thyroid (acquired)[ICD10: E03.4] Clarice Elaine MD, [facility] [address] [place] [address] CPT-4: 9921 4 09/09/2019 ([id number]) 34319 EST. PATIENT, LEVEL IV Diagnosis: Type 2 diabetes mellitus with hyperglycemia[ICD10: E11.65] Diagnosis: Essential (primary) hypertension[ICD10: I10] Diagnosis: VACCIN FOR INFLUENZA[ICD10: Z23] Diagnosis: Mild intermittent asthma in adult without complication[ICD10: J45.20] Clarice Elaine MD, [facility] [address] [place] [address] CPT-4: 95823 05/13/2019 ([id number]) 15434 EST. PATIENT, LEVEL III Diagnosis: Type 2 diabetes mellitus without complications[ICD10: E11.9] Diagnosis: Essential (primary) hypertension[ICD10: I10] Clarice Elaine MD, [facility] [address] [place] [address] CPT-4: 9921 3 02/05/2019 ([id number]) 50981 EST. PATIENT, LEVEL IV Diagnosis: Essential (primary) hypertension[ICD10: I10] Diagnosis: Mild intermittent asthma with (acute) exacerbation[ICD10: J45.21] Diagnosis: Type 2 diabetes mellitus with hyperglycemia[ICD10: E11.65] Diagnosis: Acute bronchitis due to other specified organisms[ICD10: J20.8] Clarice Elaine MD, [facility] [address] [place] [address] CPT-4: 52479 01/21/2019 ([id number]) 09739 EST. PATIENT, LEVEL IV Diagnosis: Cough[ICD10: R05] Diagnosis: Atrophy of thyroid (acquired)[ICD10: E03.4] Diagnosis: Type 2 diabetes mellitus with hyperglycemia[ICD10: E11.65] Clarice Elaine MD, [facility] [address] [place] [address] CPT-4: 83048 09/23/2018 ([id number]) 05175 EST. PATIENT, LEVEL IV Diagnosis: Type 2 diabetes mellitus with hyperglycemia[ICD10: E11.65] Diagnosis: Atrophy of thyroid (acquired)[ICD10: E03.4] Clarice Elaine MD, [facility] [address] [place] [address] CPT-4: 9921 4 05/27/2018 ([id number]) 39711 EST. PATIENT, LEVEL IV Diagnosis: Type 2 diabetes mellitus without complications[ICD10: E11.9] Diagnosis: Paroxysmal atrial fibrillation[ICD10: I48.0] Diagnosis: Essential (primary) hypertension[ICD10: I10] Clarice Elaine MD, [facility] [address] [place] [address] CPT-4: 9921 4 01/21/2018 ([id number]) 17297 EST. PATIENT, LEVEL III Diagnosis: Paroxysmal atrial fibrillation[ICD10: I48.0] Diagnosis: Other specified anemias[ICD10: D64.89] Clarice Bay MD, [facility] [address] [place] [address] CPT-4: 9921 3 12/04/2017 ([id number]) 16850 EST. PATIENT, LEVEL IV Diagnosis: Benign paroxysmal vertigo, bilateral[ICD10: H81.13] Diagnosis: Essential (primary) hypertension[ICD10: I10] Diagnosis: Other fatigue[ICD10: R53.83] Diagnosis: Other specified anemias[ICD10: D64.89] Diagnosis: Other allergic rhinitis[ICD10: J30.89] Socorro Bay MD, [facility] [address] [place] [address] CPT-4: 9921 4 11/13/2017 ([id number]) 53286 EST. PATIENT, LEVEL III Diagnosis: Mild intermittent asthma with (acute) exacerbation[ICD10: J45.21] Diagnosis: Cough[ICD10: R05] Socorro Elaine MD, [facility] [address] [place] [address] CPT-4: 87772 10/30/2017 ([id number]) 56800 EST. PATIENT, LEVEL IV Diagnosis: Gastro-esophageal reflux disease without esophagitis[ICD10: K21.9] Diagnosis: Type 2 diabetes mellitus without complications[ICD10: E11.9] Diagnosis: Other specified anemias[ICD10: D64.89] Diagnosis: Paroxysmal atrial fibrillation[ICD10: I48.0] Socorro Elaine MD, [facility] [address] [place] [address] CPT-4: 9921 4 09/20/2017 ([id number]) 60875 EST. PATIENT, LEVEL III Diagnosis: Essential (primary) hypertension[ICD10: I10] Clarice Elaine MD, [facility] [address] [place] [address] CPT-4: 9921 3 05/29/2017 ([id number]) 20939 EST. PATIENT, LEVEL III Diagnosis: Acute bronchitis due to other specified organisms[ICD10: J20.8] Diagnosis: Cough[ICD10: R05] Diagnosis: Other chest pain[ICD10: R07.89] Clarice sales MD, [facility] [address] [place] [address] CPT-4: 9921 3 05/14/2017 ([id number]) 88168 EST. PATIENT, LEVEL IV Diagnosis: Type 2 diabetes mellitus with hyperglycemia[ICD10: E11.65] Diagnosis: Essential (primary) hypertension[ICD10: I10] Diagnosis: Mild intermittent asthma with (acute) exacerbation[ICD10: J45.21] Clarice Elaine MD, [facility] [address] [place] [address] CPT-4: 41365 03/06/2017 ([id number]) 17685 EST. 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 PATIENT, LEVEL III Diagnosis: Mild intermittent asthma with (acute) exacerbation[ICD10: J45.21] Diagnosis: Gastro-esophageal reflux disease without esophagitis[ICD10: K21.9] Jayne Elaine MD, [facility] [address] [place] [address] CPT-4: 77430 10/12/2016 ([id number]) 52358 EST. PATIENT, LEVEL IV Diagnosis: Type 2 diabetes mellitus with hyperglycemia[ICD10: E11.65] Diagnosis: Essential (primary) hypertension[ICD10: I10] Diagnosis: Mild intermittent asthma with (acute) exacerbation[ICD10: J45.21] Clarice Elaine MD, [facility] [address] [place] [address] CPT-4: 67203 09/04/2016 45507 EST. PATIENT, LEVEL III Diagnosis: Pain in left ankle and joints of left foot[ICD10: M25.572] Diagnosis: Localized edema[ICD10: R60.0] Jayne Elaine MD, [facility] [address] [place] [address] CPT-4: 67129 05/30 ([id number]) 50771 EST. PATIENT, LEVEL III Diagnosis: Type 2 diabetes mellitus with hyperglycemia[ICD10: E11.65] Clarice Elaine MD, [facility] [address] [place] [address] CPT-4: 64540 05/01/2016 ([id number]) 35757 EST. PATIENT, LEVEL IV Diagnosis: Type 2 diabetes mellitus without complications[ICD10: E11.9] Diagnosis: Moderate persistent asthma, uncomplicated[ICD10: J45.40] Diagnosis: Paroxysmal atrial fibrillation[ICD10: I48.0] Clarice Elaine MD, [facility] [address] [place] [address] CPT-4: 9921 4 02/29/2016 ([id number]) 90592 EST. PATIENT, LEVEL IV Diagnosis: Paroxysmal atrial fibrillation[ICD10: I48.0] Diagnosis: Hypothyroidism, unspecified[ICD10: E03.9] Diagnosis: Type 2 diabetes mellitus without complications[ICD10: E11.9] Diagnosis: Essential (primary) hypertension[ICD10: I10] Diagnosis: Acute maxillary sinusitis, unspecified[ICD10: J01.00] Diagnosis: Moderate persistent asthma, uncomplicated[ICD10: J45.40] Clarice Elaine MD, [facility] [address] [place] [address] CPT-4: 15925 02/03/2016 ([id number]) 48589 EST. PATIENT, LEVEL IV Diagnosis: Type 2 diabetes mellitus without complications[ICD10: E11.9] Diagnosis: Hypothyroidism, unspecified[ICD10: E03.9] Diagnosis: Moderate persistent asthma, uncomplicated[ICD10: J45.40] Diagnosis: Essential (primary) hypertension[ICD10: I10] Clarice Elaine MD, [facility] [address] [place] [address] CPT-4: 9921 4 12/21/2015 ([id number]) 65983 EST. 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 PATIENT, LEVEL IV Diagnosis: Type 2 diabetes mellitus without complications[ICD10: E11.9] Diagnosis: Essential (primary) hypertension[ICD10: I10] Diagnosis: Hypothyroidism, unspecified[ICD10: E03.9] Clarice Elaine MD, [facility] [address] [place] [address] CPT-4: 9921 4 06/22/2015 ([id number]) 68583 EST. PATIENT, LEVEL IV Diagnosis: ESSENTIAL HYPERTENSION[ICD9: 401.9] Diagnosis: DIABETES TYPE II[ICD9: 250.00] Clarice Elaine MD, [facility] [address] [place] [address] CPT-4: 05606 12/22 ([id number]) 40536 EST. PATIENT, LEVEL IV Diagnosis: ACUTE BRONCHITIS[ICD9: 466.0] Diagnosis: Acute asthma exacerbation[ICD9: 493.92] Diagnosis: ESSENTIAL HYPERTENSION[ICD9: 401.9] Diagnosis: DIABETES TYPE II[ICD9: 250.00] Clarice Elaine MD, [facility] [address] [place] [address] CPT-4: 65205 08/17 ([id number]) 16582 EST. PATIENT, LEVEL IV Diagnosis: DIABETES TYPE II[ICD9: 250.00] Diagnosis: ESSENTIAL HYPERTENSION[ICD9: 401.9] Diagnosis: Acute asthma exacerbation[ICD9: 493.92] Clarice Elaine MD, [facility] [address] [place] [address] CPT-4: 9921 4 04/13/2014 ([id number]) 55251 EST. PATIENT, LEVEL IV Diagnosis: DIABETES TYPE II[ICD9: 250.00] Diagnosis: ESSENTIAL HYPERTENSION[ICD9: 401.9] Diagnosis: HYPOTHYROIDISM[ICD9: 244.9] Clarice Elaine MD, [facility] [address] [place] [address] CPT-4: 33942 12/11 ([id number]) 68362 EST. PATIENT, LEVEL IV Diagnosis: DM W/O COMPLICATION TYPE II, UNCONTROLLED[ICD9: 250.02] Diagnosis: ESSENTIAL HYPERTENSION[ICD9: 401.9] Clarice sandhu MD, [facility] [address] [place] [address] CPT-4: 9921 4 11/10/2013 ([id number]) 85667 EST. PATIENT, LEVEL IV Diagnosis: DM W/O COMPLICATION TYPE II, UNCONTROLLED[SNOMED: 16449443] Diagnosis: ESSENTIAL HYPERTENSION[SNOMED: 06771224] Diagnosis: ACUTE BRONCHITIS[ICD9: 466.0] Clarice Elaine MD, [facility] [address] [place] [address] CPT-4: 63002 08/11 ([id number]) 54510 EST. PATIENT, LEVEL IV Diagnosis: DM W/O COMPLICATION TYPE II, UNCONTROLLED[SNOMED: 89570558] Diagnosis: ATRIAL FIBRILLATION[ICD9: 427.31] Diagnosis: ESSENTIAL HYPERTENSION[SNOMED: 49581887] Clarice Elaine MD, [facility] [address] [place] [address] CPT-4: 9921 4 05/12/2013 ([id number]) 67612 EST. PATIENT, LEVEL IV Diagnosis: DM W/O COMPLICATION TYPE II, UNCONTROLLED[SNOMED: 02364411] Diagnosis: ESSENTIAL HYPERTENSION[SNOMED: 36466093] Clarice Elaine MD, [facility] [address] [place] [address] CPT-4: 9921 4 01/06/2013 ([id number]) 60634 EST. PATIENT, LEVEL IV Diagnosis: DIABETES TYPE II[SNOMED: 194073031] Diagnosis: ESSENTIAL HYPERTENSION[SNOMED: 40278265] Diagnosis: Acute asthma exacerbation[ICD9: 493.92] Diagnosis: Fatigue[ICD9: 780.79] Clarice Elaine MD, [facility] [address] [place] [address] CPT-4: 61181 10/07/2012 ([id number]) 48678 EST. PATIENT, LEVEL IV Diagnosis: DM W/O COMPLICATION TYPE II, UNCONTROLLED[SNOMED: 16674322] Diagnosis: Lump of breast, right[ICD9: 611.72] Diagnosis: Lump on neck[ICD9: 784.2] Clarice Elaine MD, [facility] [address] [place] [address] CPT-4: 03199 09/11/2012 ([id number]) 05356 EST. PATIENT, LEVEL IV Diagnosis: ESSENTIAL HYPERTENSION[SNOMED: 94990307] Diagnosis: Atrial fibrillation[ICD9: 427.31] Diagnosis: Fatigue[ICD9: 780.79] Diagnosis: Encounter for monitoring digoxin therapy[ICD9: V58.83] Clarice Elaine MD, [facility] [address] [place] [address] CPT-4: 11180 07/15/2012 ([id number]) 74823 EST. PATIENT, LEVEL IV Diagnosis: DIABETES TYPE II[SNOMED: 460126783] Diagnosis: ESSENTIAL HYPERTENSION[SNOMED: 35818975] Clarice Elaine MD, [facility] [address] [place] [address] CPT-4: 9921 4 05/02/2012 ([id number]) 76168 EST. PATIENT, LEVEL IV Diagnosis: DM W/O COMPLICATION TYPE II, UNCONTROLLED[SNOMED: 67089715] Diagnosis: ESSENTIAL HYPERTENSION[SNOMED: 53994486] Diagnosis: HYPERLIPIDEMIA[ICD9: 272.4] Clarice Elaine MD, [facility] [address] [place] [address] CPT-4: 41120 03/28 ([id number]) 49160 EST. PATIENT, LEVEL IV Diagnosis: DM W/O COMPLICATION TYPE II, UNCONTROLLED[SNOMED: 68119377] Diagnosis: ESSENTIAL HYPERTENSION[SNOMED: 98505881] Clarice Elaine MD, [facility] [address] [place] [address] CPT-4: 9921 4 11/27/2011 ([id number]) 39140 EST. PATIENT, LEVEL III Diagnosis: ESSENTIAL HYPERTENSION[SNOMED: 63117954] Diagnosis: ANEMIA[ICD9: 285.9] Diagnosis: Gastritis[ICD9: 535.50] Clarice Elaine MD, [facility] [address] [place] [address] CPT-4: 99075 10/25/2011 ([id number]) 74102 EST. PATIENT, LEVEL III Diagnosis: Anemia associated with acute blood loss[ICD9: 285.1] Diagnosis: Gastritis, acute with hemorrhage[ICD9: 535.01] Clarice Elaine MD, [facility] [address] [place] [address] CPT-4: 9921 3 10/11/2011 ([id number]) 97174 EST. PATIENT, LEVEL IV Diagnosis: Hematochezia[ICD9: 578.1] Diagnosis: ENCNTR LONG-RX USE NEC[ICD9: V58.69] Diagnosis: Abdominal pain[ICD9: 789.00] Clarice Elaine MD, [facility] [address] [place] [address] CPT-4: 19691 10/03 ([id number]) 14133 EST. PATIENT, LEVEL IV Diagnosis: DIABETES TYPE II[SNOMED: 625103386] Diagnosis: ESSENTIAL HYPERTENSION[SNOMED: 65151970] Diagnosis: Coronary artery disease[ICD9: 414.00] Clarice Elaine MD, [facility] [address] [place] [address] CPT-4: 9921 4 09/25/2011 ([id number]) 81523 EST. PATIENT, LEVEL IV Diagnosis: Muscle spasm[ICD9: 728.85] Diagnosis: Arthralgia[ICD9: 719.40] Diagnosis: ESSENTIAL HYPERTENSION[SNOMED: 00942233] Clarice Elaine MD, [facility] [address] [place] [address] CPT-4: 9921 4 07/31/2011 85814 EST. PATIENT, LEVEL III Diagnosis: ACUTE SINUSITIS[ICD9: 461.9] Diagnosis: Cervicalgia[ICD9: 723.1] Socorro Elaine MD, [facility] [address] [place] [address] CPT-4: 62225 05/22/2011 67430 EST. PATIENT, LEVEL IV Diagnosis: HYPERLIPIDEMIA[ICD9: 272.4] Diagnosis: HYPOTHYROIDISM[ICD9: 244.9] Diagnosis: DM W/O COMPLICATION TYPE II, UNCONTROLLED[SNOMED: 77322346] Clarice Elaine MD, [facility] [address] [place] [address] CPT-4: 05743 05/05/2011 Plan of Care Planned Activity Notes [...] blood thinners. 06/20/2022 Appointment: Clarice Elaine WPtel: [address] [place], [place] [phone] [place] ok (15 min) Moderate 06/20/2022 Patient [...] gi symptoms 06/05/2022 Appointment: Clarice Elaine WPtel: [phone] [place] Appointment 06/05/2022 Patient Education: Patient Medication Summary [...] if worsens 02/23/2022 Appointment: Socorro Salmeron WPtel: [facility] (30 min) Complex 02/23/2022 Patient Education: Patient Medication Summary Completed 02/23/2022 Visit Plan: Cellulitis - left buttock -r x for oral antibiotics to take as directed, return to clinic for recheck, call for acute change in symptoms, worsening redness, warmth, discharge. 02/20/2022 Appointment: Socorro Salmeron WPtel: [phone] (30 min) Complex 02/20/2022 Patient Education: Patient Medication Summary Completed 02/20/2022 Patient Education: Patient Medication Summary Completed 02/07/2022 Visit Plan: Diabetes Mellitus - uncontro lled - will have pt adjust medication as follows: increase the victoza to 1.8 Hypothyroidism - over supplemented advised pt as follows: change the synthroid to one tablet m/w//sat/sun and no tabs tue/, repeat labs in 4 months. Hx of [...] go down to 100mg daily 02/06/2022 Appointment: HarrisonClarice WPtel: [address] [phone] (30 min) Complex 02/06/2022 Patient Education: Patient Medication Summary Completed 02/06/2022 Patient Education: Hypertension Completed 02/06/2022 Patient Education: Patient Medication Summary Completed 01/04/2022 Appointment: Socorro Salmeron WPtel: [address] [phone] (15 min) Moderate 12/12/2021 Visit Plan: Hypertension [...] chronic - continue with current medication re fangmen - monitor symptoms. 08/08/2021 Patient Education: Patient Medication Summary Completed 08/08/2021 Patient Education: Diabetes Completed 08/08/2021 Appointment: Socorro Salmeron WPtel: [address] [phone] (30 min) Complex 08/01/2021 Visit Plan: Hypertension [...] in clinic 04/05/2021 Appointment: Clarice Elaine [facility]Ptel: [phone] [place] (15 min) Moderate 04/05/2021 Patient Education: [...] monitor symptoms. 11/30/2020 Appointment: Clarice Elaine WPtel: [phone] (15 min) Moderate 11/30/2020 Patient Education: Patient [...] advair HFA 08/05/2020 Appointment: Clarice Elaine WPtel: [phone] [place] (15 min) Moderate 08/05/2020 Patient Education: Patient [...] symptoms. 04/07/2020 Appointment: Clarice Elaine WPtel: [address] (15 min) Moderate 04/07/2020 Patient Education: Patient [...] less controlled. 02/12/2020 Appointment: Clarice Elaine WPtel: [facility] 02/12/2020 Patient Education: Patient Medication Summary Completed [...] home. 12/09/2019 Appointment: Clarice Elaine [facility]Ptel: [phone] [facility] Patient Education: Patient Medication Summary Completed [...] uncontrolled. 09/09/2019 Appointment: Clarice Elaine [facility]Ptel: [facility] [facility] [phone] (15 min) Moderate 09/09/2019 Patient Education: Patient [...] clinic 05/13/2019 Appointment: Clarice Elaine WPtel: [address] [phone] (15 min) Moderate 05/13/2019 Patient Education: Patient Medication Summary Completed 05/13/2019 Patient Education: Diabetes Completed 05/13/2019 Patient Education: Patient Medication Summary Completed 04/10/2019 Care Plan: A1C HPLC [facility] : 17138-1 Pending 04/10/2019 Care Plan: TSH Pending 04/10/2019 [...] controlled. 02/05/2019 Appointment: Clarice Elaine WPtel: [address] [phone] (15 min) Moderate 02/05/2019 Patient Education: Patient [...] my blood glucose?" - I have instructed Thaila - that she needs to stop eating [...] insulin. 01/21/2019 Appointment: Clarice Elaine [facility]Ptel: [facility] [phone] (15 min) Moderate 01/21/2019 Patient Education: Patient Medication Summary Completed 01/21/2019 Patient Education: Diabetes Completed 01/21/2019 [facility] Patient informed. Referral info faxed. Completed [...] controlled. 09/23/2018 Appointment: Clarice Elaine WPtel: [address] [phone] (15 min) Moderate 09/23/2018 Patient Education: Patient Medication Summary Completed 09/23/2018 Patient Education: Diabetes Completed 09/23/2018 Care Plan: Referral Order SNOMED-CT : 30 [id number] Pending 09/23/2018 Appointment: Clarice Elaine WPtel: [address] [phone] (15 min) Moderate 05/27/2018 Patient Education: Patient [...] uncontrolled. 01/21/2018 Appointment: Clarice Elaine WPtel: [address] [phone] (15 min) Moderate 01/21/2018 Patient Education: Patient [...] IV. 12/04/2017 Appointment: Clarice Elaine WPtel: [address] [phone] (15 min) Moderate 12/04/2017 Patient Education: Patient [...] instructions/medication interventions. HTN-elevated today- monitor at home Fkqwah-agoscuj-shjel labs Allergies-add flonase nasal spray 11/13/2017 Appointment: Socorro Salmeron WPtel: [facility]2 [facility] [place] [address] (30 min) Complex 11/13/2017 Patient Education: Patient [...] acute changes. 10/30/2017 Appointment: Socorro Salmeron WPtel: [facility]2 [phone] (30 min) Complex 10/30/2017 Patient Education: Patient Medication Summary Completed 10/30/2017 Appointment: Clarice Elaine WPtel: [facility] [phone] (15 min) Moderate 09/25/2017 Visit Plan: GERD-continue protonix and c arafate-low spice diet -call if symptoms uncontrolled Melana-history of anemia-check Hgb-stay off aspirin per Dr Aguilar Afib-now in NSR -continue xarelto-follow up with Dr Aguilar as scheduled DM- check Hgb A1C 09/20/2017 Appointment: Socorro Salmeron WPtel: [phone] [phone] [place] (30 min) Complex 09/20/2017 Patient Education: Patient Medication Summary Completed 09/20/2017 Appointment: Clarice Elaine WPtel: [phone] [phone] [place] (15 min) Moderate 06/26/2017 Visit Plan: [...] during the removal process. 05/29/2017 Appointment: Clarice Elanie WPtel: [phone] [phone] [place] (15 min) Moderate 05/29/2017 Patient Education: Patient Medication Summary Completed 05/29/2017 Patient Education: Hypertension Completed 05/29/2017 Visit Plan: Bronchitis - acute case of b ronchitis identified. Pt has been given antibiotics, breathing treatments as appropriate, and pt has been instructed to call if symptoms are not improved, or if symptoms acutely worsen. Chest pain - chest wall - toradol shot hospira [id number] november 2018 05/14/2017 Appointment: Clarice Elaine WPtel: [phone] [phone] [place] (15 min) Moderate 05/14/2017 Patient Education: [...] clinic today. 03/06/2017 Appointment: Clarice Elaine WPtel: [facility] [phone] (15 min) Moderate 03/06/2017 Patient Education: Patient Medication Summary Completed 03/06/2017 Patient Education: Hypertension Completed 03/06/2017 Appointment: Clarice Elaine WPtel: [facility] [phone] (15 min) Moderate 12/05/2016 Visit Plan: Hypertension [...] current treatment. 11/01/2016 Appointment: Clarice Elaine WPtel: [phone] [phone] (15 min) Moderate 11/01/2016 Patient Education: Patient Medication Summary Completed 11/01/2016 Visit Plan: ADMIT FROM CLINIC TO [facility] - PT IS ACUTELY ILL, REQUIRES HOSPITALIZATION. THE PATIENT HAS BEEN EVALUATED IN CLINIC AND THIS STANDS THE HOSPITAL HISTORY AND PHYSICAL EXAMINATION. THE PATIENT HAS BEEN SENT TO THE HOSPITAL WITH WRITTEN ORDERS FOR TREATMENT AND EVALUATION OF THE ACUTE ILLNESS. 10/18/2016 Appointment: Clarice Elaine [facility]Ptel: [phone] (15 min) Moderate 10/18/2016 Patient Education: Patient [...] acute changes 10/12/2016 Appointment: Jay[facility] Ragland [facility] (30 min) Complex 10/12/2016 Patient Education: Patient [...] home. 09/04/2016 Appointment: Clarice Elaine WPtel: [phone] [phone] (15 min) Moderate 09/04/2016 Patient Education: Patient Medication Summary Completed 09/04/2016 Patient Education: Obesity Completed 0 09/04/2016 Patient Education: Hypertension Completed 09/04/2016 Appointment: Jayne Ragland WPtel: [address] [phone] [facility] - Annual Wellness Visit 07/2015 Visit [...] control. 05/01/2016 Appointment: Clarice Elaine WPtel: [address] [phone] (15 min) Moderate 05/01/2016 Patient Education: Patient [...] acute changes 02/29/2016 Appointment: Clarice Elaine WPtel: [phone] [facility] Procedure 02/29/2016 Patient Education: Patient Medication [...] pressure readings. 12/21/2015 Appointment: Clarice Elaine WPtel: [phone] [phone] (15 min) Moderate 12/21/2015 Patient Education: Patient [...] today 10/25/2015 Appointment: Clarice Elaine WPtel: [phone] [phone] (15 min) Moderate 10/25/2015 Patient Education: Patient [...] ACUTE ILLNESS. 10/19/2015 Appointment: Socorro Salmeron WPtel: [address] [place], [place] [phone] (30 min) Complex 10/19/2015 Patient Education: Patient [...] at home. 08/17/2014 Appointment: Clarice Elaine WPtel: [phone] Follow up 08/17/2014 Patient Education: Patient Medication [...] prn albuterol. 04/13/2014 Appointment: Clarice Elaine WPtel: [phone] Follow up 04/13/2014 Patient Education: Patient Medication [...] of control. 12/11/2013 Appointment: Clarice Elaine WPtel: [address] [place], [place] [phone] Follow up 12/11/2013 Patient Education: Patient Medication [...] call for acute concerns. 11/10/2013 Appointment: Clarice Elainetel: [phone] [phone] [place] Follow up 11/10/2013 Patient Education: Patient Medication Summary Completed 11/10/2013 Patient Education: Hypertension Completed 11/10/2013 Appointment: Clarice Elaine WPtel: [phone] [phone] [place] Lab Draw 11/04/2013 Patient Education: Patient [...] 08/11/2013 Appointment: Clarice Elaine [facility]Ptel: [phone] [phone] [place] Follow up 08/11/2013 Patient Education: Patient Medication Summary Completed 08/11/2013 Patient Education: Hypertension Completed 08/11/2013 Appointment: Clarice Elaine [facility]Ptel: [phone] [place] Follow up 05/12/2013 Patient Education: Patient [...] control. 01/06/2013 Appointment: Clarice Elaine WPtel: [phone] [phone] Follow up 01/06/2013 Patient Education: Patient Medication [...] today. 10/07/2012 Appointment: Clarice Elaine [facility]Ptel: [phone] Follow up 10/07/2012 Patient Education: Patient Medication [...] and ultrasound 09/11/2012 Appointment: Clarice Elaine WPtel: [phone] [phone] Follow up 09/11/2012 Patient Education: Patient Medication [...] level. 07/15/2012 Appointment: Clarice Elaine [facility]Ptel: [phone] Follow up 07/15/2012 Patient Education: Patient Medication [...] Plavix. 05/02/2012 Appointment: Clarice Elaine WPtel: [phone] Follow up 05/02/2012 Patient Education: Patient Medication [...] ASPIRIN COMPELTELY. 03/28/2012 Appointment: Clarice Elaine WPtel: [facility]5 [facility] [place] [address] Follow up 03/28/2012 Patient Education: Patient Medication [...] home. 11/27/2011 Appointment: Clarice Elaine WPtel: [phone] [phone] Follow up 11/27/2011 Patient Education: Patient Medication Summary Completed 11/27/2011 Patient Education: High Blood Pressure: Essential Hypertension Completed 11/27/2011 Patient Education: Patient Medication Summary Completed 11/06/2011 Appointment: Clarice Elaine WPtel: [phone] Other 11/03/2011 Appointment: Clarice Elaine WPtel: [address] [place], [place] [phone] [place] [address] Other 11/02/2011 Appointment: Clarice Elaine WPtel: [address] [place], [place] [id number] Lab Draw 10/31/2011 Visit Plan: Hypertension - [...] times daily. 10/25/2011 Appointment: Clarice Elaine WPtel: [address] [place], [place] [phone] [place] [address] Follow up 10/25/2011 Patient Education: Patient Medication Summary Completed 10/25/2011 Patient Education: High Blood Pressure: Essential Hypertension Completed 10/25/2011 Appointment: Clarice Elaine WPtel: [address] [place], [place] [phone] [address] Lab Draw 10/16/2011 Patient Education: Patient Medication [...] to 11.4 10/11/2011 Appointment: Clarice Elaine WPtel: [address] [place], [place] [id number] Other 10/11/2011 Patient Education: Patient Medication Summary Completed 10/11/2011 Appointment: Clarice Elaine WPtel: [address] [place], [place] [phone] Other 10/10/2011 Visit Plan: Abdominal pain and [...] remained stable. 10/04/2011 Appointment: Clarice Elaine WPtel: [address] [place] [address] Follow up 10/04/2011 Patient Education: Patient Medication [...] not improve. 09/25/2011 Appointment: Clarice Elaine WPtel: [address] [place], [place] [phone] Other 09/25/2011 Patient Education: Patient Medication Summary Completed 09/25/2011 Patient Education: High Blood Pressure: Essential Hypertension Completed 09/25/2011 Appointment: Clarice Elaine WPtel: [address] [place] [address] Other 07/31/2011 Patient Education: Patient Medication Summary [...] use. 05/22/2011 Appointment: Socorro Salmeron [facility]Ptel: [phone] Other 05/22/2011 Patient Education: Patient Medication Summary [...] increased. 05/05/2011 Appointment: Clarice Elaine WPtel: [phone] [phone] [place] Other 05/05/2011 Patient Education: Patient Medication Summary Completed 05/05/2011 Patient Education: High Cholesterol Compl eted 05/05/2011 Appointment: Clarice Elaine WPtel: [phone] [phone] [place] Other 05/04/2011 Appointment: Clarice Elaine WPtel: [phone] Lab Draw 05/02/2011 Patient Education: Patient Medication Summary Completed 05/02/2011 Patient Education: High Blood Pressure: Essential Hypertension Completed 05/02/2011 Referral: [facility] Mukul so Instructions Comment Date let us know how your blood glucose [...] further instructions/medication interventions. HTN-elevated today-monitor at home Ohroai-ttpzauq-ioggc labs Allergies-add flonase nasal spray 11/13/2017 restart [...] - chest wall - toradol shot [facility] [id number] november 2018 05/14/2017 . Diabetes Mellitus - [...] . Asthma Exacerbation - Asthma is a [facility] problem for this patient, however, the [...] Diabetes Mellitus - controlled - per r [facility] FSBS reports. I have recommended for the [...]
[2022-11-09 16:00] LABS: HEMATOCRIT 44 % (35-52); HEMOGLOBIN 13.9 g/dL (11.5-16.0); MEAN CORPUSCULAR HEMOGLOBIN 26 pg (25-34); MEAN CORPUSCULAR HGB CONC 32 g/dL (32-36); MEAN CORPUSCULAR VOLUME 82 fL (80-99); MEAN PLATELET VOLUME 9.8 fL (9.0-12.2); PLATELET COUNT 331 10^3/uL (130-400); WHITE BLOOD COUNT 5.6 10^3/uL (4.3-11.0)
[2022-11-09] MEDS ORDERED: AMIODARONE FOR BOLUS 150 MG in NS (IVPB) 100 ML IV NR (16:00)
[2022-11-09 16:11] LABS: ALBUMIN 3.8 GM/DL (3.2-4.5)
[2022-11-09 16:12] LABS: POTASSIUM 3.9 MMOL/L (3.6-5.0)
[2022-11-09 16:13] LABS: CALCIUM 9.5 MG/DL (8.5-10.1)
[2022-11-09 16:14] LABS: TOTAL PROTEIN 6.9 GM/DL (6.4-8.2)
[2022-11-09 16:16] LABS: BILIRUBIN,TOTAL 0.6 MG/DL (0.1-1.0)
[2022-11-09 16:17] LABS: CREATININE SERUM 0.81 MG/DL (0.60-1.30)
[2022-11-09 16:28] VITALS: BP 125/83
[2022-11-09] MEDS ORDERED: RIVAROXABAN 20 MG TABLET (XARELTO) PO SCH (17:00)
[2022-11-09] MEDS ORDERED: SEMA0.25 SQ (17:07)
[2022-11-09] MEDS ORDERED: LEVO75TA6 PO (17:07)
[2022-11-09] MEDS ORDERED: AMIO200T65 PO (17:07)
[2022-11-09] MEDS ORDERED: glipiZIDE 5 MG (GLUCOTROL) TAB PO SCH (18:00)
[2022-11-09] MEDS: glipiZIDE 5 MG (GLUCOTROL) TAB PO SCH (20:56)
[2022-11-09] MEDS: AMIODARONE 200 MG (CORDARONE) TAB PO SCH (20:56)
[2022-11-10] MEDS ORDERED: LEVOTHYROXINE 75 MCG (LEVOTHROID) TABLET PO SCH (06:30)
[2022-11-10] MEDS ORDERED: glipiZIDE 5 MG (GLUCOTROL) TAB PO SCH (06:30)
--- NOTE | 2022-11-10 06:39 | Cardiology History & Physical ---
HPI-Cardiology Cardiology Consultation Date of Consultation 11/10/22 Date of Admission Time Seen by Provider: 08:05 Indication: Atrial flutter HPI 82-year-old lady with history of paroxysmal atrial fibrillation/atrial flutter, started to have palpitation, generalized weakness and shortness of breath. Came into the office for evaluation yesterday and she was noted to be in atrial flutter with a heart rate in the upper 90s. I decided to admit her and give her additional amiodarone IV and increase her oral dose. She continued to be in atrial flutter, complaining of fatigue and loss of energy. Planning to proceed with cardioversion today. PMH-Cardiology Immunizations Up To Date Tetanus Booster (DTap): Unknown Date of Pneumonia Vaccine: Jul 09, 2016 Date of Influenza Vaccine: Apr 08, 2022 Seasonal Allergies Seasonal Allergies: Yes Surgeries Yes (R CTR;SINUS;R FOOT;BILAT TKR;CARDIAC ABLATION;CARDIAC CATH-STENTS X1;LINQ ) Respiratory Yes (asthma) Asthma Cardiovascular Yes (stents x 3, HEART ABLATION - DR DSOUZA/BRANDIE) Deep Vein Thrombosis, Atrial Fibrillation, High Cholesterol Neurological No Reproductive System Hx Reproductive Disorders: No Sexually Transmitted Disease: No HIV/AIDS: No Female Reproductive Disorders: Denies Genitourinary No Gastrointestinal No (stomach bleeds) Gastroesophageal Reflux, Gastrointestinal Bleed Musculoskeletal No Arthritis, Rheumatoid Arthritis Endocrine Yes (right thyroidectomy) Diabetes, Non-Insulin dep HEENT No Cataract Loss of Vision: Denies Hearing Impairment: Denies Cancer No Psychosocial Yes Anxiety Integumentary Yes (MASS ON BUTTOCK) Blood Transfusions No Adverse Rxn to Transfusion: No (HAS HAD BLOOD WITH NO REACTION) Social History Patient Social History Dip or chew tobacco?: No Have you traveled recently?: No Alcohol Use?: No Family Hx Significant Family History: Heart Disease, Diabetes, Hypertension Family History: Arthritis 19 FATHER G8 SISTER Congenital heart disease 19 MOTHER G8 BROTHER Diabetes mellitus G8 BROTHER FH: CHF (congestive heart failure) 19 FATHER 19 MOTHER G8 BROTHER FH: CVA (cerebrovascular accident) 19 MOTHER G8 SISTER FH: hypercholesterolemia FH: musculoskeletal disease 19 FATHER G8 SISTER Glaucoma G8 SISTER Hypercholesterolemia Hypertension 19 MOTHER G8 SISTER Myocardial infarction G8 BROTHER ROS-Cardiology Review of Systems General: No Chills, No Night Sweats; Fatigue; No Malaise, No Appetite HEENT: No Head Aches, No Visual Changes, No Eye Pain, No Ear Pain, No D ysphasia, No Sinus Congestion, No Post Nasal Drip, No Sore Throat Pulmonary: Dyspnea; No Cough, No Pleuritic Chest Pain Cardiovascular: Palpitations; No: Chest Pain, Orthopnea, Paroxysmal Noc. Dyspnea, Edema, Lt Headedness Gastrointestinal: No: Nausea, Vomiting, Abdominal Pain, Diarrhea, Constipation, Melena, Hematochezia Genitourinary: No Dysuria, No Frequency, No Incontinence, No Hematuria, No Retention Musculoskeletal: No: neck pain, shoulder pain, arm pain, back pain, hand pain, leg pain, foot pain Neurological: No: Weakness, Numbness, Incoordination, Change in speech, Confusion, Seizures Home Medications & Allergies Allergies: Coded Allergies: warfarin (Unverified Allergy, Severe, BLEEDING, 03/29/22) azithromycin (Verified Allergy, Unknown, 03/29/22) cephalexin (Verified Allergy, Unknown, 03/29/22) heparin (Verified Allergy, Unknown, 07/27/22) levofloxacin (Verified Allergy, Unknown, 03/29/22) meloxicam (Verified Allergy, Unknown, 03/29/22) metoprolol (Verified Allergy, Unknown, NECK SPASMS, 03/29/22) metronidazole (Verified Allergy, Unknown, 03/29/22) morphine (Verified Allergy, Unknown, 03/29/22) theophylline (Verified Allergy, Unknown, 03/29/22) prednisone (Verified Adverse Reaction, Intermediate, STOMACH BLEED, 03/29/22) norfloxacin (Verified Adverse Reaction, Unknown, GI INTOLERANCE, 03/29/22) trovafloxacin (Verified Adverse Reaction, Unknown, GI INTOLERANCE, 03/29/22) Uncoded Allergies: BRIL (Allergy, Unknown, 07/27/22) Home Medication List Reviewed: Yes Exam-Cardiology Vital Signs Vital Signs Date Time Temp Pulse Resp B/P (MAP) Pulse Ox O2 Delivery O2 Flow Rate FiO2 11/10/22 06:00 93 18 136/83 (100) 94 Room Air 11/09/22 20:37 36.6 Exam General Appearance: Alert, Oriented X3, Cooperative, No Acute Distress HEENT: Atraumatic, PERRLA Respiratory: Clear to Auscultation, Normal Air Movement Cardiovascular: Regular Rate, Normal S1, Normal S2, No Murmurs Abdominal: Normal Bowel Sounds, Soft, No Tenderness, No Hepatosplenomegaly, No Masses Extremities: No Clubbing, No Cyanosis, No Edema, Normal Pulses, No Tenderness/Swelling Skin: No Rashes, No Breakdown, No Significant Lesion Neuro: Normal Gait, Normal Speech, Strength at 5/5 X4 Ext, Normal Tone, Sensation Intact Psych/Mental Status: Mental Status NL, Mood NL Results Labs Labs Laboratory Tests 11/09/22 15:50: White Blood Count 5.6, Red Blood Count 5.33H, Hemoglobin 13.9, Hematocrit 44, Mean Corpuscular Volume 82, Mean Corpuscular Hemoglobin 26, Mean Corpuscular H emoglobin Concent 32, Red Cell Distribution Width 15.2H, Platelet Count 331, Mean Platelet Volume 9.8, Sodium Level 140, Potassium Level 3.9, Chloride Level 104, Carbon Dioxide Level 22, Anion Gap 14, Blood Urea Nitrogen 21H, Creatinine 0.81, Estimat Glomerular Filtration Rate 73, BUN/Creatinine Ratio 26, Glucose Level 200H, Calcium Level 9.5, Corrected Calcium 9.7, Total Bilirubin 0.6, Aspartate Amino Transf (AST/SGOT) 32, Alanine Aminotransferase (ALT/SGPT) 22, Alkaline Phosphatase 73, Troponin I 0.029H, Total Protein 6.9, Albumin 3.8, Thyroid Stimulating Hormone (TSH) 3.77 11/09/22 20:46: Glucometer 191H A/P-Cardiology Admission Diagnosis Atrial flutter Palpitation Coronary artery disease Hypertension Admission Status: Observation Assessment/Plan Coronary artery disease, History of stent using 3.5x15 mm resolute drug-eluting stent to the LAD expanded to 3.86 mm with excellent results. Cardiac catheterization October 2013 revealed patent stent to the LAD with otherwise moderate disease in the distal LAD. Very small artery distally. Otherwise, no significant obstructive disease. Had an exercise stress echo in October 2015 which showed hypertensive response with normal echocardiographic images with no ischemic changes, unable to tolerate aspirin. Cardiac catheterization was done in November 2017 showing patent stents in the proximal LAD with small vessel disease distally with normal left ventricular end-diastolic pressure. 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 Tortuous RCA with mild disease, mild disease in the circumflex. Mild elevation in troponin, type II myocardial infarction secondary to atrial flutter. Cardiac catheterization findings described above. Conservative management is recommended Paroxysmal atrial fibrillation, Seen by Dr. Zapien and had ablation in April 2018. Was treated with amiodarone prior to the ablation. Had episode of atrial flutter with RVR 07/20/21, underwent successful cardioversion. Was in atrial flutter on September 13, 2021, returned today and she is in sinus rhythm and doing well. Complaining of fatigue and loss of energy in addition to bradycardia while on cardia XT 120 mg daily Discussed possibility of putting another LINq in for further monitoring and stopping Xarelto, patient refusing, reports she had a lot of anxiety while being monitored. Patient is preferring to stay on her OAC Patient underwent electrical cardioversion, she contacted the office today not feeling well. I asked her to come in and she is back in atrial flutter with 2: 1 conduction, not feeling good heart rate around 100. We discussed the need for cardioversion again Patient was admitted and given IV amiodarone, continue with the oral dose with increasing the dose to 200 mg daily. Still in atrial flutter Plan to proceed with cardioversion today. [id number] score is 4, yearly risk of stroke without oral anticoagulation is 4 percent, currently on Xarelto . Echocardiogram was done in July 2022 with LEDY showing normal left ventricular size ejection fraction 60%, dilated left atrium with no clot or thrombus and mild mitral regurgitation underwent cardioversion. Hypertension, good control at home on current medication. Continue to monitor Hyperlipidemia, unable to tolerate simvastatin, continue to monitor lipids Mild bilateral carotid stenosis, last ultrasound was done in May 2022. History of GI bleed, intolerance to aggressive oral anticoagulations including aspirin and Plavix and Coumadin. Currently maintained on Xarelto. Continue to monitor. GERD, restarted on Protonix Anemia, continue to monitor H&H Hypothyroidism, Monitored and managed by primary care physician Pulmonary nodule, noted on CT scan, followed by primary care physician COPD, bronchial asthma, allergy, followed by primary care physician Diabetes mellitus, managed and followed by primary care physician. Patient is uncomfortable with the Jardiance 25 mg, having increasing polyuria. Increasing urinary incontinence. I will decrease Jardiance to 10 mg daily Anxiety, management per PCP LEANNA DSOUZA MD November 10, 2022 06:39
[2022-11-10] MEDS ORDERED: NS IV 500 ML 500 ML ONE (07:56)
[2022-11-10] MEDS ORDERED: LIDOCAINE 2% VISCOUS 15 ML UDC ONE (07:57)
[2022-11-10] MEDS ORDERED: NS IV 500 ML 500 ML IV SCH (08:00)
[2022-11-10] MEDS ORDERED: LIDOCAINE 2% VISCOUS 15 ML UDC PO ONE (08:00)
[2022-11-10] MEDS ORDERED: proPOfol 200 MG/20 ML (DIPRIVAN) VIAL IV ONE (08:03)
--- NOTE | 2022-11-10 08:05 | Cardiac Procedure Note-CS/ASA ---
Pre-Procedure Note Pre-Op Procedure Note Date of Available H&P: November 10, 2022 Date H&P Reviewed: November 10, 2022 Time H&P Reviewed: 08:05 History & Physical: H&P Reviewed, Patient Examed, No changes noted Pre-Operative Diagnosis: Atrial flutter Moderate Sedation PreProcedure Time 08:05 ASA Score 3 Airway Lungs Heart ASA score ASA 1: a normal healthy patient ASA 2: a patient with a mild systemic disease (mid diabetes, controlled hypertension, obesity x ASA 3: a patient with a severe systemic disease that limits activity (angina, COPD, prior Myocardial infarction) ASA 4: a patient with an incapacitating disease that is a constant threat to life (CHF, renal failure) ASA 5: a moribund patient not expected to survive 24 hrs. (ruptured aneurysm) ASA 6: a declared brain- patient whose organs are being harvested. For emergent operations, add the letter E after the classification Mallampati Classification Grade 3 Sedation Plan Analgesia, Amnesia, Plan communicated to team members, Discussed options with patient/fam, Discussed risks with patient/fam The patient is an appropriate candidate to undergo the planned procedure, sedation, and anesthesia. The patient immediately re-assessed prior to indication. LEANNA DSOUZA MD November 10, 2022 08:05
--- NOTE | 2022-11-10 08:12 | Cardioversion ---
Cardioversion PROCEDURE PHYSICIAN: Leanna Aguilar DATE OF PROCEDURE: 11/10/22 DIRECT EXTERNAL ELECTRICAL CARDIOVERSION: Indications: Atrial flutter Preoperative diagnoses: Atrial flutter Postoperative diagnosis: Sinus rhythm, Successful Electrical Cardioversion History: 82-year-old lady with history of paroxysmal atrial fibrillation, paroxysmal atrial flutter, maintained on low-dose amiodarone. Started to have palpitation, came into the office and noted to be in atrial flutter with a heart rate in the 90s. She was significantly symptomatic. I admitted her and gave her additional IV bolus of amiodarone and increase the dose to 200 mg daily. Did not respond, still in atrial flutter. 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 Electrical cardioversion was carried out with anesthesia support with propofol. 120 joules of synchronized shock was delivered through external patches which promptly restored sinus rhythm. The patient tolerated the procedure well. Conclusions: Successful electrical cardioversion and terminating atrial flutter Final Diagnosis: Paroxysmal atrial flutter Paroxysmal atrial fibrillation Palpitation Coronary artery disease LEANNA AGUILAR MD November 10, 2022 08:12
[2022-11-10] MEDS ORDERED: AMIO200T65 PO (08:14)
--- NOTE | 2022-11-10 08:14 | Discharge Inst-Post CATH ---
Discharge Inst-CATH/EP Problems Reviewed?: Yes Post Cardiac Cath/EP D/C Inst Follow Up/Plan Appointment with Dr. Aguilar's office in 1 to 2 weeks <b>CARDIAC CATH/EP PROCEDURE DISCHARGE INSTRUCTIONS</b> ACTIVITY * Go Home directly and rest. * Limit activity of the leg (or wrist if it was used) for 7 days including aer obics, swimming, jogging, bicycling, etc. * Restrict stair-climbing for 7 days if possible, if not, climb up with your non-cath leg, then bring together on the same step. * Avoid lifting, pushing, pulling or excessive movement of the affected extremi ty for 7 days. * Customary sexual activity may be resumed after 2 days-use caution not to use a position that strains or causes pain to the affected extremity. * No driving for 24 hours. * NO SMOKING. * Avoid straining for bowel movements for 7 days. * Gentle walking on level ground is allowed. * Returning to work will depend on the type of procedure and the results. Your doctor will discuss this with you. CALL YOUR DOCTOR FOR ANY OF THE FOLLOWING: *If bleeding from the puncture site occurs- Apply gentle pressure to site with clean cloth and call your doctor or EMS. * If a knot or lump forms under the skin, increases in size, or causes pain. * If bruising appears to be worsening or moving further down your leg instead of disappearing. * Temperature above 101 F. CARE OF YOUR GROIN INCISION; * Bruising or purple discoloration of the skin near the puncture site is common. * You may shower only, no bathtub bathing for 5 days. Be careful to avoid slipping as your leg may feel stiff. * If a closure device was used on your femoral artery, please see the attached guide regarding care of the device and your leg. * Leave dressing on FOR 24 hours. CARE OF YOUR WRIST INCISION; * Bruising or purple discoloration of the skin near the puncture site is common. * You may shower. * DO NOT submerge wrist. * Leave dressing on FOR 24 hours. LEANNA AGUILAR MD November 10, 2022 08:14
[2022-11-10] MEDS: AMIODARONE 200 MG (CORDARONE) TAB PO SCH (08:36)
[2022-11-10] MEDS: glipiZIDE 5 MG (GLUCOTROL) TAB PO SCH (08:36)
--- NOTE | 2022-11-10 09:00 | Anesthesia-General Post-Op ---
MAC Patient Condition Mental Status/LOC: Same as Preop Cardiovascular: Satisfactory Nausea/Vomiting: Absent Respiratory: Satisfactory Pain: Controlled Complications: Absent Post Op Complications Complications None Follow Up Care/Instructions Patient Instructions None needed. Anesthesiology Discharge Order Discharge Order Patient is doing well, no complaints, stable vital signs, no apparent adverse anesthesia problems. No complications reported per nursing. JARETT MCKNIGHT CRNA November 10, 2022 09:00
== END 2022-11-10 08:13 | disposition home or self-care (01) ==
LOC: INTOOBSV 15:33 → ICU 15:33 → UNDOADMOB 15:33 → ICU 15:42 → UNDODISOB 11-10 08:13
PROVIDERS: ADMIT Internal Medicine Cardiovascular Disease; ATTEND Internal Medicine Cardiovascular Disease
DX: I48.92 Unspecified atrial flutter (principal); I48.0 Paroxysmal atrial fibrillation; I25.10 Atherosclerotic heart disease of native coronary artery without angina pectoris; R00.2 Palpitations; I10 Essential (primary) hypertension; E78.5 Hyperlipidemia, unspecified; K21.9 Gastro-esophageal reflux disease without esophagitis; D64.9 Anemia, unspecified; E03.9 Hypothyroidism, unspecified; R91.1 Solitary pulmonary nodule; J44.9 Chronic obstructive pulmonary disease, unspecified; E11.9 Type 2 diabetes mellitus without complications; F41.9 Anxiety disorder, unspecified; Z79.899 Other long term (current) drug therapy; Z79.01 Long term (current) use of anticoagulants; Z95.5 Presence of coronary angioplasty implant and graft; Z79.890 Hormone replacement therapy; Z79.84 Long term (current) use of oral hypoglycemic drugs
CPT/HCPCS: 80053; 82947; 84443; 84484; 85027; 87081; 93005 ×2; 96374; G0378; G0379; 36415

== ENCOUNTER → 2023-04-13 | Outpatient (CLI) | payer MEDICARE, OTHER ==
[~2023-04-13] MED LIST changes: +HOLD METFORMIN - RECEIVED CONTRAST 20 ML VIAL IV SCH; +IOHEXOL 350 MG/ML 100 ML (OMNIPAQUE 350) VIAL IV ONE; -MECL-149 PO; +MECL-291 PO; +NS 100 ML (IVPB) BAG IV ONE; +SEMA0.25 SQ
[2023-04-13 12:28] LABS: BASOPHILS # (AUTO) 0.1 10^3/uL (0.0-0.1); BASOPHILS % (AUTO) 1 % (0-10); EOSINOPHILS # (AUTO) 0.2 10^3/uL (0.0-0.3); EOSINOPHILS % (AUTO) 4 % (0-10); HEMATOCRIT 42 % (35-52); HEMOGLOBIN 12.9 g/dL (11.5-16.0); LYMPHOCYTES % (AUTO) 19 % (12-44); MEAN CORPUSCULAR HEMOGLOBIN 25 pg (25-34); MEAN CORPUSCULAR HGB CONC 31 g/dL (32-36); MEAN CORPUSCULAR VOLUME 81 fL (80-99); MEAN PLATELET VOLUME 10.1 fL (9.0-12.2); MONOCYTES # (AUTO) 0.5 10^3/uL (0.0-1.0); MONOCYTES % (AUTO) 10 % (0-12); NEUTROPHILS # (AUTO) 3.5 10^3/uL (1.8-7.8); NEUTROPHILS % (AUTO) 67 % (42-75); PLATELET COUNT 265 10^3/uL (130-400); WHITE BLOOD COUNT 5.2 10^3/uL (4.3-11.0)
[2023-04-13 12:37] LABS: ALBUMIN 4.1 GM/DL (3.2-4.5)
[2023-04-13 12:38] LABS: CALCIUM 9.5 MG/DL (8.5-10.1)
[2023-04-13 12:39] LABS: TOTAL PROTEIN 7.1 GM/DL (6.4-8.2)
[2023-04-13 12:43] LABS: CREATININE SERUM 0.9 MG/DL (0.60-1.30)
--- NOTE | 2023-04-13 13:31 | Diagnostic Imaging Report ---
EXAMINATION: CT abdomen and pelvis with intravenous contrast. TECHNIQUE: Multiple contiguous axial images were obtained through the abdomen and pelvis after the uneventful administration of intravenous contrast. All CT scans use one or more of the following dose optimizing techniques: automated exposure control, MA and/or KvP adjustment based on patient size and exam type or iterative reconstruction. HISTORY: Chest and abdominal pain after eating. COMPARISON: 10/03/2021 FINDINGS: Lung bases: The lung bases are clear. Solid organs: The liver is normal without focal lesion. The gallbladder is surgically absent. There is mild dilatation of the biliary tree which may be secondary to reservoir effect from prior cholecystectomy at this appears to be smooth tapering to the ampulla. This is stable to slightly decreased from prior exam. Redemonstrated cystic or hypoattenuating lesions in the pancreas measuring up to 0.9 cm. No pancreatic ductal dilatation or atrophy. There are numerous calcified granulomas within the spleen. Stable bilateral adrenal nodules measuring up to 1.7 cm on the right and 1.4 cm on the left. The kidneys are normal without hydronephrosis. Bowel: Calcifications or surgical changes of the distal esophagus near the gastroesophageal junction. There is associated mild wall thickening as well. There is no bowel obstruction. There is scattered colonic diverticulosis. The appendix is surgically absent. Peritoneum: There is no intraperitoneal free fluid or free air. No suspicious lymphadenopathy. Vasculature: Calcification of the aorta without aneurysm. Musculoskeletal: Degenerative changes of the spine without suspicious osseous lesion or compression fracture. Pelvis: The uterus is surgically absent. No adnexal mass. The urinary bladder is normal. IMPRESSION: 1. No acute abnormality in the abdomen or pelvis. 2. Mild wall thickening and calcifications of the distal esophagus near the gastroesophageal junction. Consider correlation with upper endoscopy if this has not recently been performed. Differential consideration could include esophagitis or alternatively neoplastic process. Recommend correlation with any prior surgical changes at this location. 3. Colonic diverticulosis without findings of diverticulitis. Dictated by: Dictated on workstation # [id number]
== END ==
LOC: RAD 12:10
PROVIDERS: ATTEND Nurse Practitioner Family
DX: K22.89 Other specified disease of esophagus (principal); K57.90 Diverticulosis of intestine, part unspecified, without perforation or abscess without bleeding; R53.83 Other fatigue
CPT/HCPCS: 36415; 74177; 80053; 82565; 84520; 85025

== ENCOUNTER 2023-04-18 09:36 | Outpatient (CLI) | payer MEDICARE, OTHER ==
[~2023-04-18] VITALS: Ht 154.9 cm; Wt 64.6 kg
[~2023-04-18 09:36] MED LIST changes: -HOLD METFORMIN - RECEIVED CONTRAST 20 ML VIAL IV SCH; -IOHEXOL 350 MG/ML 100 ML (OMNIPAQUE 350) VIAL IV ONE; -NS 100 ML (IVPB) BAG IV ONE
[2023-04-18] MEDS ORDERED: MAGN400T7 PO (10:27)
[2023-04-18] MEDS ORDERED: SEMA0.258 SQ (10:27)
[2023-04-18] MEDS ORDERED: HYOS-20 PO (10:27)
[2023-04-18] MEDS ORDERED: FAMO-356 PO (10:27)
[2023-04-18] MEDS ORDERED: LEVO75TA PO (10:27)
[2023-04-18] MEDS ORDERED: PANT40TA52 PO (10:27)
[2023-04-18] MEDS ORDERED: AMIO200T65 PO (10:27)
[2023-04-18] MEDS ORDERED: MV-M1TAB57 PO (10:27)
[2023-04-18] MEDS ORDERED: SUCR1TAB PO (10:27)
== END 2023-04-18 10:49 | disposition home or self-care (01) ==
LOC: PREOP 09:36
PROVIDERS: ATTEND Surgery
DX: Z01.818 Encounter for other preprocedural examination (principal)

== ENCOUNTER 2023-04-20 10:27 | Day surgery (SDC) | payer MEDICARE, OTHER ==
[~2023-04-20] VITALS: Ht 154 cm; Wt 64.6 kg
[~2023-04-20 10:27] MED LIST changes: +FAMO-356 PO; +HYOS-20 PO; +MAGN400T7 PO; +MV-M1TAB57 PO; +PANT40TA52 PO; +SEMA0.258 SQ
[2023-04-20] MEDS ORDERED: LACTATED RINGERS 1,000 ML 1,000 ML IV STA (10:39)
[2023-04-20] MEDS ORDERED: LIDOCAINE JELLY 2% 6 ML SYRINGE MM PRN (10:45)
[2023-04-20] MEDS ORDERED: HURRICAINE EXT TUBE (BENZOCAINE) XX PRN (10:45)
[2023-04-20 11:10] VITALS: BP 198/81
--- NOTE | 2023-04-20 11:59 | Progress Note-Pre Operative ---
Pre-Operative Progress Note Date of Available H&P: Apr 20, 2023 Date H&P Reviewed: Apr 20, 2023 Time H&P Reviewed: 11:30 History & Physical: No changes noted Pre-Operative Diagnosis: GERD FRENCH DENIS MD Apr 20, 2023 11:58
[2023-04-20] MEDS ORDERED: ONDANSETRON INJECTION 4 MG/2 ML (SDV) IVP PRN (12:00)
[2023-04-20] MEDS ORDERED: ONDANSETRON 4 MG ORAL DISSOLVE TABLET PO PRN (12:00)
--- NOTE | 2023-04-20 12:00 | Discharge Inst-Surgical ---
D/C Lap Instructions-ADEEL Follow Up Activity as tolerated High Fiber Diet 25g or more per day Avoid Alcohol, Caffeine, Spicy [place] and Acid foods. Drink 64 fluid oz or more of fluids per day. Symptoms to Report: Fever over 101 degree F, Nausea/Vomiting If any problems/questions: Contact your physician or go to Emergency Room FRENCH DENIS MD Apr 20, 2023 12:00
[2023-04-20 13:00] VITALS: BP 86/46
--- NOTE | 2023-04-20 13:00 | Anesthesia-General Post-Op ---
MAC Patient Condition Mental Status/LOC: Same as Preop Cardiovascular: Satisfactory Nausea/Vomiting: Absent Respiratory: Satisfactory Pain: Controlled Complications: Absent Post Op Complications Complications None Follow Up Care/Instructions Patient Instructions None needed. Anesthesiology Discharge Order Discharge Order Patient is doing well, no complaints, stable vital signs, no apparent adverse anesthesia problems. No complications reported per nursing. JARETT MCKNIGHT CRNA Apr 20, 2023 13:00
[2023-04-20 13:05] VITALS: BP 114/56
[2023-04-20 13:40] VITALS: BP 114/56
--- NOTE | 2023-04-20 23:31 | OPERATIVE REPORT ---
DATE OF SERVICE: 04/20/2023 PREOPERATIVE DIAGNOSES: Gastroesophageal reflux, distal esophageal wall thickening identified on CT scan. POSTOPERATIVE DIAGNOSES: Reflux esophagitis, [place] between grade B and C, mild distal esophageal stricture, small to moderate size hiatal hernia, 2.5 cm in size, moderate gastritis. PROCEDURE: EGD with biopsy and balloon dilatation. SURGEON: French Denis MD ANESTHESIA: Monitored anesthesia care. ESTIMATED BLOOD LOSS: Minimal. FINDINGS: Reflux esophagitis, [place] between grade B and C, mild distal esophageal stricture, small to moderate size hiatal hernia, 2.5 cm in size, moderate gastritis. DISPOSITION: The patient tolerated the procedure well. INDICATIONS: The patient is an 83-year-old female known to us. She has been seen for skin lesion; however, as well as reflux. In 2017, she underwent an EGD and was found to have reflux esophagitis, [place] grade B, small hiatal hernia as well as a moderate severity gastritis and prepyloric gastric erosions and she was treated appropriately. She states that she has had issues with abdominal bloating as well as epigastric burning sensation and crampy pain. She did have a CT scan recently performed, which did show mild wall thickening and calcification of the distal esophagus. DESCRIPTION OF PROCEDURE: The patient was brought to the endoscopy suite and laid in the left lateral decubitus position. After adequate IV pain and sedative medications and monitored anesthesia care, the mouthpiece was applied. The endoscope was placed in the mouth, visualized the pharynx and hypopharyngeal region. Vocal cords, epiglottis and vallecula identified and appeared normal. The endoscope was then gently intubated into the esophageal opening and esophagus insufflated. The endoscope was then advanced through the first, second and third portions of the esophagus at the level of the GE junction, reflux esophagitis, [place] between grade B to C was identified as well as a mild distal esophageal stricture. A biopsy was taken with forceps with visualization of good hemostasis. The endoscope was then advanced in the stomach and endoscope retroflexed visualizing a small to moderate size hiatal hernia approximately 2.5 cm in size. This esophageal thickening identified on CT scan was likely a combination of the hiatal hernia as well as the distal esophageal stricture. A moderate gastritis was noted. A biopsy was taken of the antrum to rule out H. pylori with visualization of good hemostasis. The endoscope was then advanced through the pylorus and the first and second portion of the duodenum, which appeared normal with no distal obstructions. The balloon was then placed in the stomach and pulled back to the area of the stricture. We then proceeded with graded dilatation from 2, 4, and then 6 atmospheres of pressure with 60 seconds in between. Once we reached 6 atmospheres of pressure or 20 mm in luminal diameter, we confronted moderate resistance and left this in place for approximately 60 seconds. The balloon was desufflated and removed with visualization of good hemostasis as well as no mucosal tears. The endoscope was then slowly withdrawn while taking a second look and suctioning of residual air with no additional findings. The patient tolerated the procedure well. We will recommend the necessary lifestyle and dietary accommodation including small and more frequent meals, avoiding to eating at night as well as head elevation while lying supine. She also needs to avoid caffeinated beverages, spicy, greasy and acidic foods. 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 and we will recommend that she continue with this regimen. Job ID: [id number] DocumentID: [id number] Dictated Date: 04/20/2023 13:05:32 Beet Worker Date: 04/20/2023 23:29:00 Dictated By: FRENCH DENIS MD
== END 2023-04-20 13:40 | disposition home or self-care (01) ==
LOC: ENDO 10:27
PROVIDERS: ATTEND Surgery
DX: K21.00 Gastro-esophageal reflux disease with esophagitis, without bleeding (principal); K29.50 Unspecified chronic gastritis without bleeding; K44.9 Diaphragmatic hernia without obstruction or gangrene; K22.2 Esophageal obstruction; K31.89 Other diseases of stomach and duodenum
CPT/HCPCS: 88305